=== PATIENT | female | born 1985 | race Caucasian/White ===

== ENCOUNTER 2016-06-28 09:44 | Inpatient (IN) | payer MEDICAID, OTHER, SELFPAY ==
[~2016-06-28] VITALS: Ht 152.4 cm; Wt 60.2 kg
[~2016-06-28 09:44] MED LIST: ATIV0.5T; CELE20TA OR; CELE40TA OR; CIPR25SS OR; EFFE75CA75; HYDR25TA8 OR; KLON0.5T OR; MACR50CA; METO10TA2 OR; PRIL20CA OR; SUBUTEX; THERGRAN PO; THORAZINE PO; VALI5TAB OR; prenatal vitamin PO; suboxone PO
[2016-06-28 11:27] LABS: METHADONE URINE NEGATIVE (NEGATIVE)
[2016-06-28 12:06] LABS: CONTROL LINE HCG INT CTR LINE PRESENT
[2016-06-28 12:20] LABS: ALBUMIN 3.8 GM/DL (3.2-5.2); ALBUMIN/GLOBULIN RATIO 1.23 (1.00-1.93); ALKALINE PHOSPHATASE 54 U/L (45-117); ALT/SGPT 23 U/L (12-78); ANION GAP 6 MEQ/L (8-16); AST/SGOT 18 U/L (15-37); BILIRUBIN,DIRECT < 0.1 MG/DL (0.0-0.2); BILIRUBIN,TOTAL 0.2 MG/DL (0.2-1.0); BLOOD UREA NITROGEN 12 MG/DL (7-18); CALCIUM LEVEL 8.4 MG/DL (8.5-10.1); CARBON DIOXIDE LEVEL 28 MEQ/L (21-32); CHLORIDE LEVEL 107 MEQ/L (98-107); CREATININE FOR GFR 0.77 MG/DL (0.55-1.02); GLOMERULAR FILTRATION RATE > 60.0 (>60); GLUCOSE, FASTING 93 MG/DL (70-105); POTASSIUM SERUM 4.3 MEQ/L (3.5-5.1); SODIUM LEVEL 141 MEQ/L (136-145); TOTAL PROTEIN 6.9 GM/DL (6.4-8.2)
[2016-06-28 13:02] LABS: MEAN CORPUSCULAR HEMOGLOBIN 31.6 pg (27.0-33.0); MEAN CORPUSCULAR HGB CONC 33.2 g/dl (32.0-36.5); MEAN CORPUSCULAR VOLUME 95.2 fl (80.0-96.0); RED CELL DISTRIBUTION WIDTH 12.5 % (11.5-14.5); WHITE BLOOD COUNT 7.7 K/mm3 (4.0-10.0)
[2016-06-28] MEDS ORDERED: MOM 30ML SUSPENSION UDC PO PRN (13:15)
[2016-06-28] MEDS ORDERED: MAALOX 30 ML SUSP *UDC PO PRN (13:15)
[2016-06-28 14:08] VITALS: BP 126/81
[2016-06-28] MEDS ORDERED: KEPP1000 PO (16:15)
[2016-06-28] MEDS ORDERED: NEUR800T PO (16:15)
[2016-06-28] MEDS ORDERED: BUPR200T PO (16:15)
[2016-06-28] MEDS: GABAPENTIN 400 MG CAP PO SCH ×2 (16:42→20:33)
[2016-06-28] MEDS: NICOTINE 21MG/24HR 1 EA TRANSDERMAL TD SCH (16:42)
[2016-06-28] MEDS: cloNIDine 0.1 MG TAB PO SCH ×2 (16:43→20:36)
[2016-06-28] MEDS: hydrOXYzine 50 MG TAB PO PRN (17:56)
[2016-06-28 18:00] VITALS: BP 111/65
[2016-06-28] MEDS: traZODone 50 MG TAB PO PRN (20:32)
[2016-06-28] MEDS: buPROPion (WELLBUTRIN SR) 100 MG SR TAB PO SCH (20:32)
[2016-06-28] MEDS: levETIRAcetam 250MG TABLET (KEPPRA) PO SCH (20:32)
[2016-06-29 06:42] VITALS: BP 111/56
[2016-06-29] MEDS: levETIRAcetam 250MG TABLET (KEPPRA) PO SCH ×2 (08:54→20:25)
[2016-06-29] MEDS: buPROPion (WELLBUTRIN SR) 100 MG SR TAB PO SCH ×2 (08:56→20:25)
[2016-06-29] MEDS: GABAPENTIN 400 MG CAP PO SCH ×3 (08:56→20:26)
[2016-06-29] MEDS: cloNIDine 0.1 MG TAB PO SCH (08:56)
[2016-06-29] MEDS: NICOTINE 21MG/24HR 1 EA TRANSDERMAL TD SCH (08:56)
[2016-06-29] MEDS ORDERED: PRAZOSIN 1 MG CAP PO SCH (09:00)
[2016-06-29] MEDS: QUEtiapine FUMARATE 50 MG TAB PO SCH (11:56)
[2016-06-29] MEDS: VENLAFAXINE **XR** 75MG CAPSULE PO SCH (11:56)
[2016-06-29] MEDS: ATOMOXETINE HCL 40 MG CAP (STRATTERA) PO SCH (11:56)
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
[2016-06-29 18:00] VITALS: BP 113/53
[2016-06-29] MEDS: QUEtiapine FUMARATE 100 MG TAB PO SCH (20:25)
[2016-06-29] MEDS: PRAZOSIN 1 MG CAP PO SCH (20:26)
[2016-06-29] MEDS: hydrOXYzine 50 MG TAB PO PRN (20:26)
[2016-06-29] MEDS: ACETAMINOPHEN TAB 650MG DOSE (2X325MG) PO PRN (20:30)
[2016-06-30 06:31] VITALS: BP 93/54
[2016-06-30] MEDS: buPROPion (WELLBUTRIN SR) 100 MG SR TAB PO SCH ×2 (08:06→20:21)
[2016-06-30] MEDS: GABAPENTIN 400 MG CAP PO SCH ×3 (08:06→20:21)
[2016-06-30] MEDS: QUEtiapine FUMARATE 50 MG TAB PO SCH (08:06)
[2016-06-30] MEDS: levETIRAcetam 250MG TABLET (KEPPRA) PO SCH ×2 (08:06→20:21)
[2016-06-30] MEDS: VENLAFAXINE **XR** 75MG CAPSULE PO SCH (08:06)
[2016-06-30] MEDS: ATOMOXETINE HCL 40 MG CAP (STRATTERA) PO SCH (08:06)
[2016-06-30] MEDS: hydrOXYzine 50 MG TAB PO PRN ×2 (08:07→20:24)
[2016-06-30] MEDS: NICOTINE 21MG/24HR 1 EA TRANSDERMAL TD SCH (08:07)
--- NOTE | 2016-06-30 09:45 | IPN ---
DATE: 06/30/2016 I met with Ms. Phipps and staff this morning. Mood was good. Eye contact was good. She is comfortable with the present medications she is on which she had reported to me and were dosed as per her reports. She is known well by discharge planning staff who have worked with her for many years and her main concern is to be able to get outpatient treatment. MENTAL STATUS: Speech is normal. No disturbance of thought process. No loose associations. No psychotic thoughts. Judgment and insight poor. Fully oriented. Recent and remote memory intact. Attention and concentration intact. No disturbance of language. Full fund of knowledge. Mood is good. Affect is bright. The patient claims that her use of drugs is only based on when she does not get her psychiatric medications. Her problems are significantly more complicated than that as per her history. I have added oral PRN medications for agitation based on patient's history DIAGNOSES: Depressive illness. Substance dependence. Borderline and antisocial personality traits. MTDD
[2016-06-30] MEDS ORDERED: HALOPERIDOL 10 MG TAB PO PRN (10:15)
[2016-06-30] MEDS: diphenhydrAMINE 50 MG CAP PO PRN (11:55)
[2016-06-30] MEDS: LORazepam 2 MG TAB PO PRN (16:14)
--- NOTE | 2016-06-30 16:29 | HPE ---
DATE OF ADMISSION: 06/29/2016 HISTORY OF PRESENT ILLNESS: Please refer to psychiatric history and evaluation for further details on this admission. This examination and history is intended for medical issues, which may need treatment, followup, or consult on this 31-year-old female. SOCIAL HISTORY: She lives with mother. She smokes one pack of cigarettes per day. She has a history of drug abuse. She has taken some opiate pills and most recently shooting up intravenous (IV) methamphetamine, the last time being 2 weeks ago. ALLERGIES: IBUPROFEN, HALDOL, PENICILLIN, ADDERALL, OLANZAPINE, GEODON. PAST MEDICAL HISTORY: 1. Hepatitis C. 2. Methicillin-resistant Staphylococcus aureus (MRSA). SURGICAL HISTORY: Hernia repair. LABORATORY STUDIES: CBC was normal. Electrolytes were normal. Calcium 8.0. TSH was 0.162. Urine was positive for opiates. HOME MEDICATIONS: - bupropion 200 mg by mouth twice a day - gabapentin 800 mg by mouth twice a day - Keppra 1000 mg by mouth twice a day A 10-systems review done and was unremarkable. Patient had no specific complaints. Did have some soreness but no redness on her left hand between the 1st and 2nd knuckle where she had at one time injected. There is no redness, drainage, or swelling. Otherwise, review of systems unremarkable. OBJECTIVE: A 31-year-old cooperative female in no acute distress. Height 60 inches, weight 60.2 kg, body mass index (BMI) 25.9. Blood pressure is 111/65, pulse 80, respirations 18, temperature 98.5. Patient is alert and oriented times three. Pupils equal and reactive to light. Extraocular movements (EOMs) intact. Cornea and sclerae are clear. Conjunctivae are normal. No facial asymmetry. Pharynx, tongue, and gums pink and moist. Tongue is midline. Neck is supple without lymphadenopathy. No thyromegaly. No goiter. Carotids 2+ without bruits. Chest clear to auscultation without wheeze or retraction. Heart is regular. Abdomen benign. Bowel sounds positive. Genitourinary/rectal not done. Extremities: No cyanosis, clubbing, or edema . Peripheral pulses equal and palpable bilaterally. Skin is warm and dry. IMPRESSION AND PLAN: Psychiatric plan per psychiatry. History of hepatitis C, stable. History of methicillin-resistant Staphylococcus aureus (MRSA). Continue current plan of care.
[2016-06-30 18:00] VITALS: BP 102/60
[2016-06-30] MEDS: PRAZOSIN 1 MG CAP PO SCH (20:20)
[2016-06-30] MEDS: QUEtiapine FUMARATE 100 MG TAB PO SCH (20:21)
[2016-07-01] MEDS: LORazepam 2 MG TAB PO PRN (04:41)
[2016-07-01] MEDS: QUEtiapine FUMARATE 50 MG TAB PO SCH (08:20)
[2016-07-01] MEDS: ATOMOXETINE HCL 40 MG CAP (STRATTERA) PO SCH (08:20)
[2016-07-01] MEDS: VENLAFAXINE **XR** 75MG CAPSULE PO SCH (08:20)
[2016-07-01] MEDS: hydrOXYzine 50 MG TAB PO PRN (08:20)
[2016-07-01] MEDS: levETIRAcetam 250MG TABLET (KEPPRA) PO SCH ×2 (08:21→21:12)
[2016-07-01] MEDS: GABAPENTIN 400 MG CAP PO SCH ×3 (08:21→21:14)
[2016-07-01] MEDS: buPROPion (WELLBUTRIN SR) 100 MG SR TAB PO SCH ×2 (08:21→21:12)
[2016-07-01] MEDS: NICOTINE 21MG/24HR 1 EA TRANSDERMAL TD SCH (08:22)
[2016-07-01] MEDS ORDERED: LORazepam 1 MG TAB PO PRN (11:30)
--- NOTE | 2016-07-01 15:09 | IPN ---
DATE: 07/01/2016 CHIEF COMPLAINT: Says is doing okay. SUBJECTIVE: Seen for followup. I am accompanied by staff. The patient says she is doing better but is upset that her logistics officer came in to visit her yesterday. Says she did not want her here and does not want her involved in her discharge planning. Says she also disagreed with plans that the logistics officer had discussed, but she did not go into details. Says sleeps okay and has a fair appetite. She denies any suicidal thoughts or intents. Does say has a headache and has had one for the last 8 months or so and that she is due to see a neurologist. Says had run out of medicines for about 2 weeks just prior to coming to the hospital. Suggests parole ought to have arranged that. MENTAL STATUS EXAMINATION: She is neat, cooperative, but possibly a bit guarded. No agitation. Displays mild irritability, particularly when questioned on details. Affect restricted but reactive. Appears a bit groggy. Denies feeling it. Denies any suicidal thoughts or intents. No homicidal ideas or intents. Currently no evidence of psychosis. She is alert, oriented to time, though it took her a little while indicating what day it was and the date. She is able to spell the word "house" forward and the backward. Judgment is questionable. Insight is fair. ASSESSMENT: 1. Posttraumatic stress disorder, by history. 2. Bipolar disorder, by history. 3. Polysubstance dependency. 4. Borderline personality disorder, by history. PLAN: I would suggest continuing current care, but given her history of substance abuse and her possibly being somewhat sedated at present, I would suggest decreasing the lorazepam. It is decreased to 1 mg every 6 hours as needed for anxiety with a maximum daily dose of 2 mg, and this should be reviewed in about 2 or 3 days. It is preferable the patient not use benzodiazepines overall, however. May consider discontinuing it eventually in the near future. Encouraged participation in [employer] activities. Work with the patient and the probation office, particularly regarding her concerns about the chief information officer, the process, and discharge planning. Will monitor the headache. Refer to neurology upon discharge. This may need intervention while she is in the inpatient unit. VITAL SIGNS: Blood pressure 124/66, pulse 92, temperature 98.5.
[2016-07-01] MEDS: diphenhydrAMINE 50 MG CAP PO PRN (15:23)
[2016-07-01] MEDS: chlorproMAZINE 25 MG TAB (Q0161) PO PRN (15:23)
[2016-07-01] MEDS: QUEtiapine FUMARATE 100 MG TAB PO SCH (21:12)
[2016-07-01] MEDS: PRAZOSIN 1 MG CAP PO SCH (21:12)
[2016-07-02 06:12] VITALS: BP 121/62
[2016-07-02] MEDS: QUEtiapine FUMARATE 50 MG TAB PO SCH (09:45)
[2016-07-02] MEDS: VENLAFAXINE **XR** 75MG CAPSULE PO SCH (09:45)
[2016-07-02] MEDS: ATOMOXETINE HCL 40 MG CAP (STRATTERA) PO SCH (09:45)
[2016-07-02] MEDS: NICOTINE 21MG/24HR 1 EA TRANSDERMAL TD SCH (09:45)
[2016-07-02] MEDS: GABAPENTIN 400 MG CAP PO SCH ×3 (09:46→20:36)
[2016-07-02] MEDS: buPROPion (WELLBUTRIN SR) 100 MG SR TAB PO SCH ×2 (09:46→20:37)
[2016-07-02] MEDS: levETIRAcetam 250MG TABLET (KEPPRA) PO SCH ×2 (09:46→20:36)
[2016-07-02] MEDS: LORazepam 1 MG TAB PO PRN ×2 (09:51→17:41)
[2016-07-02] MEDS: ACETAMINOPHEN TAB 650MG DOSE (2X325MG) PO PRN ×2 (13:57→20:40)
[2016-07-02] MEDS: diphenhydrAMINE 50 MG CAP PO PRN (13:59)
[2016-07-02] MEDS: chlorproMAZINE 25 MG TAB (Q0161) PO PRN (13:59)
[2016-07-02 15:08] VITALS: BP 117/64
[2016-07-02] MEDS: traZODone 50 MG TAB PO PRN (20:36)
[2016-07-02] MEDS: QUEtiapine FUMARATE 100 MG TAB PO SCH (20:36)
[2016-07-02] MEDS: PRAZOSIN 1 MG CAP PO SCH (20:37)
--- NOTE | 2016-07-02 21:05 | IPN ---
DATE: 07/02/2016 CHIEF COMPLAINT: Says does not feel well. SUBJECTIVE: Is seen for followup in the presence of staff. She indicated that she was not feeling well and that she had hot flashes. She looked groggy. When that was pointed out, she became quite upset, indicated that she did not feel it and that she was also upset that changes had been made to her medication regimen. It should be noted that the patient had been somewhat sedated last evening. We decided to hold off on sedatives, as there was some concern that she may have brought in drugs. Urine toxicology was negative. When informed that the urine toxicology did not show benzodiazepine either, she indicated that it should have shown opiates initially, which it did, the specimen of urine when she had been first admitted. MENTAL STATUS EXAMINATION: Fairly neat. Superficially coopeative. Initially appeared somewhat sedated and tired, and then became quite angry, upset, much more alert, was verbally abusive, with an irritable affect. There was no evidence of any thoughts of harming herself or anyone else. She displayed no evidence of any psychosis. Initially appeared drowsy and when asked questions related to cognition, was able to answer them, was aware of her surroundings. Was not formally able to be tested for cognition but the questioning had resulted in her becoming more angry yet. Judgment is poor. Insight is quite questionable. ASSESSMENT: 1. Posttraumatic stress disorder (PTSD) by history. 2. Bipolar disorder by history. 3. Polysubstance use disorder. 4. Borderline personality disorder by history. The patient has displayed periods of sedation. Urine toxicology done when there was some suspicion that she may have taken substances, possibly brought in, was essentially negative, including for benzodiazepine, which is surprising. I decided to hold off on sedatives. We will look at resuming the lorazepam for the next couple of days, in fact that has been done at 1 mg no more than twice a day. When asked of her preference to discontinue either the hydroxyzine or the Benadryl, when she has been prescribed both for anxiety, she became more upset, indicated hydroxyzine had "never worked." Was angry that I was making changes, which had been initiated by the previous psychiatrist. Attempts to explain the rationale for doing so was made but she was not very receptive to it. A code 25 needed to be called, as she was in the hallway, not directable, angry, upset, verbally aggressive, and then calmed down and the code was canceled. PLAN: We will look at cutting down the hydroxyzine and discontinuing it and tapering the Benadryl as well. I do not see the point of using those two medications for any length of time to help with anxiety. Meanwhile, we will continue the rest of her medication regimen, including Seroquel at 150 mg daily, Strattera 40 mg daily, prazosin 2 mg at night, Wellbutrin 400 mg daily. Further changes will be made depending on the clinical picture. Blood pressure 121/62, pulse 113, temperature 97.9. We will look at repeating the vitals. It should be noted the interview was cut short, as she was verbally abusive when recommendations are discussed. It should be noted that a repeat vital signs indicated blood pressure 117/64, pulse 104, temperature 98.4.
[2016-07-03] MEDS: LORazepam 1 MG TAB PO PRN (06:11)
[2016-07-03 07:00] VITALS: BP 118/73
[2016-07-03] MEDS: ATOMOXETINE HCL 40 MG CAP (STRATTERA) PO SCH (08:21)
[2016-07-03] MEDS: VENLAFAXINE **XR** 75MG CAPSULE PO SCH (08:21)
[2016-07-03] MEDS: GABAPENTIN 400 MG CAP PO SCH ×3 (08:21→20:40)
[2016-07-03] MEDS: levETIRAcetam 250MG TABLET (KEPPRA) PO SCH ×2 (08:21→20:40)
[2016-07-03] MEDS: ACETAMINOPHEN TAB 650MG DOSE (2X325MG) PO PRN ×2 (08:22→21:41)
[2016-07-03] MEDS: QUEtiapine FUMARATE 50 MG TAB PO SCH (08:22)
[2016-07-03] MEDS: buPROPion (WELLBUTRIN SR) 100 MG SR TAB PO SCH ×2 (08:22→20:40)
[2016-07-03] MEDS: NICOTINE 21MG/24HR 1 EA TRANSDERMAL TD SCH (08:22)
[2016-07-03] MEDS ORDERED: QUEtiapine FUMARATE 12.5 MG HALF-TAB PO PRN (11:30)
--- NOTE | 2016-07-03 15:17 | IPN ---
DATE: 07/03/2016 A 31-year-old female with history of depression admitted with suicidal ideations, significant anxiety, posttraumatic stress disorder (PTSD), and substance abuse. The patient was very anxious. SUBJECTIVE: "I need to be on benzodiazepines." OBJECTIVE: The patient is trying to convince me that she needs to continue taking Ativan. I talked to the patient about the pros and the cons of the medications, including benzodiazepines and the fact that with her clinical situation and past history of chemical dependency, benzodiazepines are contraindicated. The patient became angry and continued trying to convince me that she is in need of this medication since she has panic attacks very frequent. MENTAL STATUS EXAMINATION: The patient is dressed in [facility]. She has fair eye contact. Speech is normal in rate, volume, articulation, is coherent and is spontaneous. The patient is reported as anxious with panic attacks. Affect is congruent with mood. No evidence of delusions or hallucinations. Memory is fair. The patient is fully oriented. Associations are intact. Thinking is logical. Thought content is appropriate. The patient reported high anxiety and mood fluctuations in the context of trying to convince me that she needs to take benzodiazepines. Insight and judgment is limited. ASSESSMENT: 1. Depression. 2. Generalized anxiety disorder. 3. Posttraumatic stress disorder (PTSD) by history. PLAN: 1. Discontinue Ativan. 2. Continue Seroquel 100 mg by mouth at bedtime, 50 mg by mouth every morning, and add Seroquel 12.5 mg by mouth three times a day as needed for anxiety. 3. Continue Effexor 75 mg by mouth every morning. 4. Continue Wellbutrin 200 mg by mouth twice a day. 5. Continue trazodone 50 mg by mouth at bedtime as needed for insomnia. 6. Discontinue Benadryl and start Atarax 50 mg by mouth every six hours as needed for anxiety. 7. Continue Thorazine 25 mg by mouth at bedtime as needed for anxiety. 8. Continue Minipress 2 mg by mouth at bedtime.
[2016-07-03] MEDS: hydrOXYzine 50 MG TAB PO PRN (16:22)
[2016-07-03 18:00] VITALS: BP 112/67
[2016-07-03 20:40] VITALS: BP 137/64
[2016-07-03] MEDS: PRAZOSIN 1 MG CAP PO SCH (20:40)
[2016-07-03] MEDS: traZODone 50 MG TAB PO PRN (21:38)
[2016-07-03] MEDS: QUEtiapine FUMARATE 100 MG TAB PO SCH (21:38)
[2016-07-04] MEDS: hydrOXYzine 50 MG TAB PO PRN (04:42)
[2016-07-04 06:20] VITALS: BP 90/54
[2016-07-04] MEDS: VENLAFAXINE **XR** 75MG CAPSULE PO SCH (09:12)
[2016-07-04] MEDS: ATOMOXETINE HCL 40 MG CAP (STRATTERA) PO SCH (09:12)
[2016-07-04] MEDS: GABAPENTIN 400 MG CAP PO SCH (09:12)
[2016-07-04] MEDS: buPROPion (WELLBUTRIN SR) 100 MG SR TAB PO SCH (09:12)
[2016-07-04] MEDS: levETIRAcetam 250MG TABLET (KEPPRA) PO SCH (09:12)
[2016-07-04] MEDS: QUEtiapine FUMARATE 50 MG TAB PO SCH (09:12)
[2016-07-04] MEDS: NICOTINE 21MG/24HR 1 EA TRANSDERMAL TD SCH (09:14)
[2016-07-04] MEDS ORDERED: ATOM40CA PO (11:54)
[2016-07-04] MEDS ORDERED: QUET5TAB PO (11:54)
[2016-07-04] MEDS ORDERED: VENL75CA PO (11:54)
[2016-07-04] MEDS ORDERED: QUET1TAB8 PO (11:54)
[2016-07-04] MEDS ORDERED: MINI1CAP PO (11:54)
[2016-07-04] MEDS ORDERED: HYDRO50TAB PO (11:54)
--- NOTE | 2016-07-05 11:40 | MHDS ---
DATE OF ADMISSION: 06/28/2016 DATE OF DISCHARGE: 07/04/2016 HISTORY OF PRESENT ILLNESS: The following information is according to the initial evaluation of Dr. Greenberg, his progress note and my own progress note. On 06/28/2016, Dr. Greenberg wrote: A 31-year-old who states that she came to the emergency room because she was stressed out. She expressed suicidal ideations. She states that [facility] and had no therapies, no Medicaid, and no followup medications after she ran out of the ones in [facility]ent[facility]. She states, "my probation and parole officer has me running around." She states, "I always come home and I have trouble with Medicaid and medications being refilled." The following medications are reported by the patient, I have no other record at this time, the patient states that she takes: Minipress, Strattera, Wellbutrin, Seroquel, Effexor, gabapentin, and Keppra. The patient states that her Keppra needs to be switched after she sees a neurologist. The patient states that she has a bad liver. According to the patient, the patient has been diagnosed with seizure disorder, hepatitis C, questionable methicillin-resistant Staphylococcus aureus (MRSA), chronic pain and hip pain following dislocation. 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 She states that on Sunday she used opiates because she could not get her psychiatric drugs refilled. LABORATORY DATA: At admission, CBC was unremarkable, CMP was within normal limits, TSH was 0.62, test was negative. Urine drug screen was positive for opiates, rest negative. Blood alcohol level was negative. HOSPITAL COURSE: The patient was admitted under Dr. Greenberg's care. He started the patient on Seroquel 100 mg by mouth at bedtime and 50 mg by mouth every morning, prazosin 2 mg by mouth at bedtime, Thorazine 25 mg by mouth every morning, bupropion 200 mg by mouth twice a day, Neurontin 800 mg by mouth three times a day, trazodone 50 mg as needed for insomnia. With this medication, the patient was stabilized. I started taking care of the patient on 07/03/2016. At that point, she is significantly improved from admission. The patient is able to contract for safety. However, she wanted me to prescribe benzodiazepines. She said that she was on Klonopin for a long time. I discussed this fact with the patient and told her that benzodiazepines at this point are contraindicated and that in addition she has a very long history of chemical dependence. She became angry and frustrated and continued to request to be placed on these medications. On 07/04/2016, the patient is better, calmer. The patient would like to be able to go home. The patient is denying suicidal or homicidal ideation. The patient does not have psychotic symptoms. No auditory or visual hallucinations or delusions. A family meeting was held and the patient did well. Therefore, at this point, the patient does not meet criteria for acute inpatient hospitalization and can be managed in outpatient setting so she was discharged on 07/04/2016 in stable condition. MENTAL STATUS EXAMINATION AT DISCHARGE: The patient is dressed [facility]. The patient is calm and cooperative. Her speech is clear, coherent with normal rate and is spontaneous. The patient has good eye contact. Mood is slightly anxious and depressed but significantly improved from admission. Affect is appropriate and congruent with mood. The patient is oriented to time, place, person and situation, maintains attention and concentration correctly. Instant recall, recent and remote memory are intact. Thought processes are coherent, logical and goal-directed. The patient does not have auditory or visual hallucinations. The patient does not have paranoid, persecutory, somatic, grandiose, or taoist delusions. The patient denies suicidal or homicidal ideation. Insight and judgment are fair. DISCHARGE DIAGNOSES: AXIS I: Generalized anxiety disorder, posttraumatic stress disorder (PTSD), polysubstance dependency, adjustment disorder with depressed and anxious mood. AXIS II: Deferred. AXIS III: None acute. DISCHARGE INSTRUCTIONS: The patient is to continue taking her medications as prescribed and followup appointments. She is advised to maintain absolute sobriety from drugs and alcohol. The patient has scheduled appointments for psychotropic medication management, individual psychotherapy, and primary care physician. DISCHARGE MEDICATIONS: - Seroquel 100 mg by mouth at bedtime and 50 mg by mouth every morning - prazosin 2 mg by mouth at bedtime - Effexor XR 75 mg by mouth every morning - Strattera 40 mg by mouth every morning - bupropion 200 mg by mouth twice a day - Neurontin 800 mg by mouth three times a day
== END 2016-07-04 12:55 | disposition home or self-care (01) | DRG 756 ==
LOC: M ED 11:12 → M ED INP 13:10 → M PSY 14:10
PROVIDERS: ADMIT Psychiatry & Neurology Child & Adolescent Psychiatry; ATTEND Psychiatry & Neurology Psychiatry
DX: F41.1 Generalized anxiety disorder (principal); F11.20 Opioid dependence, uncomplicated; F43.10 Post-traumatic stress disorder, unspecified; F43.23 Adjustment disorder with mixed anxiety and depressed mood; F60.2 Antisocial personality disorder; F17.210 Nicotine dependence, cigarettes, uncomplicated; Z88.0 Allergy status to penicillin; Z88.6 Allergy status to analgesic agent; Z88.8 Allergy status to other drugs, medicaments and biological substances; Z86.14 Personal history of Methicillin resistant Staphylococcus aureus infection; Z86.19 Personal history of other infectious and parasitic diseases; Z79.899 Other long term (current) drug therapy; Z65.2 Problems related to release from prison

== ENCOUNTER 2016-08-24 15:58 | Emergency (ER) | payer OTHER ==
[~2016-08-24] VITALS: Ht 152.4 cm; Wt 56.4 kg
[~2016-08-24 15:58] MED LIST changes: +ATOM40CA PO; +BUPR200T PO; +HYDRO50TAB PO; +KEPP10002 PO; +MINI1CAP PO; +NEUR800T PO; +QUET1TAB8 PO; +QUET5TAB PO; +VENL75CA2 PO
[2016-08-24 17:12] LABS: BASO # 0.1 K/mm3 (0.0-0.2); BASO % 1.6 % (0.0-1.0); EOS # 0.2 K/mm3 (0.0-0.50); EOS % 3.1 % (0.0-3.0); LARGE UNSTAINED CELL # 0.2 K/mm3 (0.0-0.4); LARGE UNSTAINED CELL % 2.2 % (0.0-4.0); LYMPH # 1.7 K/mm3 (1.5-6.5); LYMPH % 22.2 % (24.0-44.0); MEAN CORPUSCULAR HEMOGLOBIN 31.6 pg (27.0-33.0); MEAN CORPUSCULAR HGB CONC 33.9 g/dl (32.0-36.5); MEAN CORPUSCULAR VOLUME 93.2 fl (80.0-96.0); MONO # 0.4 K/mm3 (0.0-0.8); MONO % 5.6 % (0.0-5.0); NEUTROPHILS # 4.9 K/mm3 (1.8-7.7); NEUTROPHILS % 65.3 % (36.0-66.0); PLATELET COUNT, AUTOMATED 335 k/mm3 (150-450); RED CELL DISTRIBUTION WIDTH 12.2 % (11.5-14.5); WHITE BLOOD COUNT 7.5 K/mm3 (4.0-10.0)
[2016-08-24 17:30] LABS: ALBUMIN/GLOBULIN RATIO 1.03 (1.00-1.93); ALKALINE PHOSPHATASE 56 U/L (45-117); ANION GAP 5 MEQ/L (8-16); AST/SGOT 19 U/L (15-37); BILIRUBIN,TOTAL 0.4 MG/DL (0.2-1.0); BLOOD UREA NITROGEN 11 MG/DL (7-18); CALCIUM LEVEL 9.5 MG/DL (8.5-10.1); CARBON DIOXIDE LEVEL 32 MEQ/L (21-32); CHLORIDE LEVEL 104 MEQ/L (98-107); CREATININE FOR GFR 0.95 MG/DL (0.55-1.02); GLOMERULAR FILTRATION RATE > 60.0 (>60); GLUCOSE, FASTING 93 MG/DL (70-105); POTASSIUM SERUM 3.8 MEQ/L (3.5-5.1); SODIUM LEVEL 141 MEQ/L (136-145); TOTAL PROTEIN 7.9 GM/DL (6.4-8.2)
[2016-08-24 17:32] LABS: ALT/SGPT 21 U/L (12-78); HCG, SERUM QUANTITATIVE < 1.0 MIU/ML
--- NOTE | 2016-08-24 18:13 | REP ---
Clinical: Left-sided chest pain . Comparison: 01/04/2010 . Technique: PA and lateral. Findings: The mediastinum and cardiac silhouette are normal. The lung johnson are clear and without acute consolidation, effusion, or pneumothorax. The skeletal structures are intact and normal. Impression: 1. No acute cardiopulmonary process. Signed by Broderick Mondragon MD 08/24/2016 06:05 P
[2016-08-24 18:57] LABS: METHADONE URINE NEGATIVE (NEGATIVE)
[2016-08-24 19:23] VITALS: BP 120/78
--- NOTE | 2016-08-25 07:33 | ECGEPIP ---
Stationary ECG Study [facility] - ED Test Date: 2016-08-24 Pat Name: MELANY LEE Department: Room: - Gender: F Case Assistant: ct : 1985 Requested By: Seth Limon Order Number: [id number] Reading MD: Shirley Spears Measurements Intervals [place] Rate: 78 P: 59 TX: 125 QRS: 62 QRSD: 86 T: 49 QT: 372 QTc: 424 Interpretive Statements SINUS RHYTHM SIMILAR 03/09/14 Electronically Signed On 08-25-2016 7:33:22 EDT by Shirley Spears
== END 2016-08-24 19:34 | disposition home or self-care (01) ==
LOC: M ED 15:58
DX: R07.89 Other chest pain (principal); F41.9 Anxiety disorder, unspecified; B19.20 Unspecified viral hepatitis C without hepatic coma; F19.10 Other psychoactive substance abuse, uncomplicated; R56.9 Unspecified convulsions; F17.200 Nicotine dependence, unspecified, uncomplicated; Z79.899 Other long term (current) drug therapy; Z88.8 Allergy status to other drugs, medicaments and biological substances; Z88.0 Allergy status to penicillin

== ENCOUNTER → 2016-10-02 | Outpatient (REF) | payer OTHER | LOC: M LAB REF 13:22 | PROVIDERS: ATTEND Surgery | DX: N34.1 Nonspecific urethritis (principal); A56.8 Sexually transmitted chlamydial infection of other sites ==

== ENCOUNTER → 2016-11-14 | Outpatient (REF) | payer OTHER | LOC: M LAB REF 17:50 | PROVIDERS: ATTEND Physician Assistant Medical | DX: E03.9 Hypothyroidism, unspecified (principal) ==

== ENCOUNTER 2018-05-11 14:48 | Emergency (ER) | payer OTHER ==
[~2018-05-11] VITALS: Ht 152.4 cm; Wt 64.1 kg
[2018-05-11] MEDS ORDERED: GABA-845 PO (14:55)
[2018-05-11] MEDS ORDERED: TRIL600T PO (14:55)
[2018-05-11] MEDS ORDERED: CHLOR10TAB (14:56)
[2018-05-11] MEDS ORDERED: AMIT75TA (14:56)
[2018-05-11] MEDS ORDERED: DEPO150I IM (14:56)
[2018-05-11 18:06] VITALS: BP 120/83
--- NOTE | 2018-05-11 18:52 | REP ---
KUB one-view History: Foreign body A small amount of air is present in the intestine. There are no air-fluid levels or dilated loops of intestine. There is no pneumoperitoneum. There is no radiopaque foreign body. Impression: Nonspecific bowel gas pattern. Electronically Signed by Gasper Vickers MD 05/11/2018 06:44 P
--- NOTE | 2018-05-11 18:55 | REP ---
Chest one-view HISTORY: Foreign body Comparison: 08/04/2016 The lungs are clear. The heart is normal in size. The pulmonary vasculature is normal in appearance. There is no radiopaque foreign body. Impression: No acute disease. Electronically Signed by Gasper Vickers MD 05/11/2018 06:47 P
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
== END 2018-05-11 18:19 | disposition home or self-care (01) ==
LOC: M ED 14:48
DX: R09.89 Other specified symptoms and signs involving the circulatory and respiratory systems (principal); B19.20 Unspecified viral hepatitis C without hepatic coma; F17.200 Nicotine dependence, unspecified, uncomplicated; F14.10 Cocaine abuse, uncomplicated; Z88.8 Allergy status to other drugs, medicaments and biological substances; Z88.0 Allergy status to penicillin; Z88.2 Allergy status to sulfonamides; Z79.899 Other long term (current) drug therapy

== ENCOUNTER 2018-07-02 02:10 | Emergency (ER) | payer OTHER ==
[~2018-07-02] VITALS: Ht 152.4 cm; Wt 74.5 kg
[~2018-07-02 02:10] MED LIST changes: +AMIT75TA; +CHLOR10TAB; +DEPO150I IM; +GABA-845 PO; +TRIL600T PO
[2018-07-02] MEDS ORDERED: traMADol 50 MG TAB PO ONE (05:00)
[2018-07-02] MEDS ORDERED: NORCO, ANEXSIA 5/325MG TABLET (HYDROcodone/ACETAMINOPHEN) PO ONE (05:15)
[2018-07-02 05:16] VITALS: BP 133/66
[2018-07-02] MEDS ORDERED: ACETAMINOPHEN 500 MG TAB PO ONE (05:30)
[2018-07-02] MEDS ORDERED: PRED10TA2 PO (20:05)
[2018-07-02] MEDS ORDERED: BENA25CA4 PO (20:05)
== END 2018-07-02 05:31 | disposition home or self-care (01) ==
LOC: M ED 02:10
DX: T49.4X5A Adverse effect of keratolytics, keratoplastics, and other hair treatment drugs and preparations, initial encounter (principal); Y92.9 Unspecified place or not applicable; Y93.89 Activity, other specified; F41.9 Anxiety disorder, unspecified; G40.909 Epilepsy, unspecified, not intractable, without status epilepticus; B19.20 Unspecified viral hepatitis C without hepatic coma; F19.10 Other psychoactive substance abuse, uncomplicated; Z79.899 Other long term (current) drug therapy; Z88.0 Allergy status to penicillin; Z88.6 Allergy status to analgesic agent; Z88.8 Allergy status to other drugs, medicaments and biological substances

== ENCOUNTER 2018-07-02 18:20 | Emergency (ER) | payer OTHER ==
[~2018-07-02] VITALS: Ht 152.4 cm; Wt 74.2 kg
[2018-07-02] MEDS ORDERED: BENA25CA4 PO (20:05)
[2018-07-02] MEDS ORDERED: PRED10TA2 PO (20:05)
[2018-07-02] MEDS ORDERED: predniSONE 20 MG TAB PO ONE (20:15)
[2018-07-02] MEDS ORDERED: diphenhydrAMINE 25 MG CAP PO ONE (20:15)
[2018-07-02 20:22] VITALS: BP 134/72
== END 2018-07-02 20:46 | disposition home or self-care (01) ==
LOC: M ED 18:20
DX: F41.9 Anxiety disorder, unspecified (principal); F15.10 Other stimulant abuse, uncomplicated; B19.20 Unspecified viral hepatitis C without hepatic coma; Z79.899 Other long term (current) drug therapy; Z88.0 Allergy status to penicillin; Z88.6 Allergy status to analgesic agent; Z88.1 Allergy status to other antibiotic agents; Z88.8 Allergy status to other drugs, medicaments and biological substances

== ENCOUNTER 2018-07-12 14:07 | Emergency (ER) | payer OTHER ==
[~2018-07-12] VITALS: Ht 152.4 cm; Wt 79.5 kg
[~2018-07-12 14:07] MED LIST changes: +BENA25CA4 PO; +PRED10TA2 PO
[2018-07-12 14:08] VITALS: BP 117/86
[2018-07-12] MEDS ORDERED: SUBO12MI SL (15:36)
[2018-07-12] MEDS ORDERED: BANO25CA PO (15:36)
[2018-07-12] MEDS ORDERED: ATOM40CA9 PO (15:36)
== END 2018-07-12 16:01 | disposition left against medical advice (07) ==
LOC: M ED 14:07
DX: R07.9 Chest pain, unspecified (principal); B19.20 Unspecified viral hepatitis C without hepatic coma; Z86.69 Personal history of other diseases of the nervous system and sense organs; Z87.898 Personal history of other specified conditions; Z79.899 Other long term (current) drug therapy; Z88.0 Allergy status to penicillin; Z88.8 Allergy status to other drugs, medicaments and biological substances

== ENCOUNTER 2018-07-28 17:01 | Emergency (ER) | payer OTHER ==
[~2018-07-28] VITALS: Ht 152.4 cm; Wt 72.7 kg
[~2018-07-28 17:01] MED LIST changes: +ATOM40CA9 PO; +BANO25CA PO; +SUBO12MI SL
[2018-07-28] MEDS ORDERED: DEPO150I12 IM (17:16)
[2018-07-28] MEDS ORDERED: LORazepam 2 MG/ML VIAL (J2060) IV STA (18:06)
[2018-07-28] MEDS ORDERED: NS 1,000 ML IV ONE (18:15)
[2018-07-28 19:12] LABS: BASO % 0.5 % (0.0-1.0); EOS # 0.1 10^3/uL (0.0-0.50); EOS % 0.8 % (0.0-3.0); HEMATOCRIT 38.7 % (36.0-47.0); HEMOGLOBIN 12.6 g/dl (12.0-15.5); LYMPH # 1.4 10^3/uL (1.5-4.5); LYMPH % 21.8 % (24.0-44.0); MEAN CORPUSCULAR HEMOGLOBIN 30.4 pg (27.0-33.0); MEAN CORPUSCULAR HGB CONC 32.6 g/dl (32.0-36.5); MEAN CORPUSCULAR VOLUME 93.3 fl (80.0-96.0); MONO # 0.4 10^3/uL (0.0-0.8); MONO % 7.1 % (0.0-5.0); NEUTROPHILS # 4.3 10^3/uL (1.8-7.7); NEUTROPHILS % 69.3 % (36.0-66.0); PLATELET COUNT, AUTOMATED 188 10^3/uL (150-450); RED BLOOD COUNT 4.15 10^6/uL (4.00-5.40); WHITE BLOOD COUNT 6.2 10^3/uL (4.0-10.0)
[2018-07-28 20:07] LABS: ACETAMINOPHEN LEVEL < 2.0 UG/ML (10.0-30.0); ALBUMIN 4.1 GM/DL (3.2-5.2); ALT/SGPT 32 U/L (12-78); BILIRUBIN,DIRECT 0.1 MG/DL (0.0-0.2); BILIRUBIN,TOTAL 0.7 MG/DL (0.2-1.0); BLOOD UREA NITROGEN 11 MG/DL (7-18); CALCIUM LEVEL 9.2 MG/DL (8.5-10.1); CARBON DIOXIDE LEVEL 22 MEQ/L (21-32); CHLORIDE LEVEL 105 MEQ/L (98-107); CPK CREATINE PHOSPHOKINASE 310 U/L (26-192); CREATININE FOR GFR 0.66 MG/DL (0.55-1.30); ETHYL ALCOHOL (ETHANOL) < 0.003 % (0.000-0.010); GLOMERULAR FILTRATION RATE > 60.0 (>60); GLUCOSE, FASTING 97 MG/DL (70-100); POTASSIUM SERUM 4.6 MEQ/L (3.5-5.1); SALICYLATE LEVEL 3.4 MG/DL (5.0-30.0); SODIUM LEVEL 139 MEQ/L (136-145); THYROID STIMULATING HORMONE 0.648 uIU/ML (0.358-3.740); TOTAL PROTEIN 7.1 GM/DL (6.4-8.2)
[2018-07-28] MEDS ORDERED: methylPREDNISolone INJ 125 MG/2 ML VIAL (J2930) IV ONE (20:45)
[2018-07-28] MEDS ORDERED: levETIRAcetam 250MG TABLET (KEPPRA) PO ONE (21:15)
[2018-07-28] MEDS ORDERED: PRED10TA2 PO (21:18)
[2018-07-28 21:33] VITALS: BP 130/84
== END 2018-07-28 21:40 | disposition home or self-care (01) ==
LOC: M ED 17:01
DX: T78.40XA Allergy, unspecified, initial encounter (principal); F41.9 Anxiety disorder, unspecified; F15.10 Other stimulant abuse, uncomplicated; B18.2 Chronic viral hepatitis C; Z72.0 Tobacco use
CPT/HCPCS: 36415; 80048; 80076; 82550; 84443; 85025; 87040; 93041; 94760; 96360; 96361; 96374; 96375; 99285; G0480; J2060; J2930

== ENCOUNTER 2018-07-29 00:24 | Emergency (ER) | payer OTHER ==
[~2018-07-29 00:24] MED LIST changes: +DEPO150I12 IM
== END 2018-07-29 01:46 | disposition left against medical advice (07) ==
LOC: M ED 00:24
DX: S99.929A Unspecified injury of unspecified foot, initial encounter (principal); Z53.21 Procedure and treatment not carried out due to patient leaving prior to being seen by health care provider

== ENCOUNTER 2018-08-01 14:19 | Emergency (ER) | payer OTHER ==
[~2018-08-01] VITALS: Ht 152.4 cm; Wt 73.6 kg
[2018-08-01] MEDS ORDERED: LEVE10003 (14:27)
[2018-08-01] MEDS ORDERED: SUBO8MIS (14:27)
[2018-08-01] MEDS ORDERED: NS 1,000 ML IV ONE (15:15)
[2018-08-01] MEDS ORDERED: predniSONE 20 MG TAB PO ONE (15:30)
[2018-08-01 16:15] LABS: AMPHETAMINES LEVEL URINE POSITIVE (NEGATIVE); BARBITURATES URINE NEGATIVE (NEGATIVE); BENZODIAZEPINES URINE NEGATIVE (NEGATIVE); CANNABINOIDS URINE NEGATIVE (NEGATIVE); COCAINE METABOLITE URINE NEGATIVE (NEGATIVE); METHADONE URINE NEGATIVE (NEGATIVE); OPIATES URINE NEGATIVE (NEGATIVE); PHENCYCLIDINE URINE NEGATIVE (NEGATIVE)
[2018-08-01 16:24] LABS: BASO % 0.2 % (0.0-1.0); HEMATOCRIT 38.4 % (36.0-47.0); HEMOGLOBIN 12.4 g/dl (12.0-15.5); LYMPH # 1.6 10^3/uL (1.5-4.5); LYMPH % 13.8 % (24.0-44.0); MEAN CORPUSCULAR HEMOGLOBIN 30.3 pg (27.0-33.0); MEAN CORPUSCULAR HGB CONC 32.3 g/dl (32.0-36.5); MEAN CORPUSCULAR VOLUME 93.9 fl (80.0-96.0); MONO # 0.8 10^3/uL (0.0-0.8); MONO % 6.8 % (0.0-5.0); NEUTROPHILS % 78.2 % (36.0-66.0); PLATELET COUNT, AUTOMATED 311 10^3/uL (150-450); RED BLOOD COUNT 4.09 10^6/uL (4.00-5.40); WHITE BLOOD COUNT 11.5 10^3/uL (4.0-10.0)
[2018-08-01 16:45] LABS: ALBUMIN 4.3 GM/DL (3.2-5.2); ALT/SGPT 35 U/L (12-78); BILIRUBIN,DIRECT 0.1 MG/DL (0.0-0.2); BILIRUBIN,TOTAL 0.2 MG/DL (0.2-1.0); BLOOD UREA NITROGEN 14 MG/DL (7-18); CALCIUM LEVEL 10.3 MG/DL (8.5-10.1); CARBON DIOXIDE LEVEL 29 MEQ/L (21-32); CHLORIDE LEVEL 104 MEQ/L (98-107); CPK CREATINE PHOSPHOKINASE 166 U/L (26-192); CREATININE FOR GFR 0.75 MG/DL (0.55-1.30); ETHYL ALCOHOL (ETHANOL) < 0.003 % (0.000-0.010); GLOMERULAR FILTRATION RATE > 60.0 (>60); GLUCOSE, FASTING 112 MG/DL (70-100); MB/CK RELATIVE INDEX 1.81 (< OR =4); POTASSIUM SERUM 4.1 MEQ/L (3.5-5.1); SODIUM LEVEL 141 MEQ/L (136-145); TOTAL PROTEIN 7.4 GM/DL (6.4-8.2); TROPONIN I < 0.02 NG/ML (< 0.10)
[2018-08-01] MEDS ORDERED: ACETAMINOPHEN TAB 650MG DOSE (2X325MG) PO ONE (16:45)
[2018-08-01] MEDS ORDERED: ISOVUE-370 76% 100ML VIAL (Q9967) As Ordered ONE (17:09)
[2018-08-01] MEDS ORDERED: DOXY100C37 PO (18:07)
[2018-08-01 18:23] VITALS: BP 145/95
--- NOTE | 2018-08-01 18:26 | REP ---
HISTORY: Elevated d-dimer. No chest pain. COMPARISON: No priors. CONTRAST: 100 mL Isovue-370 There is excellent visualization of the pulmonary arterial vasculature. There are no focal filling defects present that would be considered consistent with pulmonary emboli. There are no pleural or pericardial effusions. There is no mediastinal or hilar adenopathy. The imaged upper abdomen and imaged osseous structures are within normal limits. Evaluation of the lung johnson show no abnormal nodules, masses or opacities. IMPRESSION: CT findings are within normal limits. Electronically Signed by Matias Oh DO 08/01/2018 07:45 P
--- NOTE | 2018-08-03 08:11 | ECGEPIP ---
[facility] - ED Test Date: 2018-08-01 Pat Name: MELANY LEE Department: Room: - Gender: Female [employer] Supervisor: sherri : 1985 Requested By: NGOC Ramos PA-C Order Number: [id number] Reading MD: Femi Elliott Measurements Intervals [place] Rate: 69 P: 44 UT: 130 QRS: 39 QRSD: 83 T: 25 QT: 358 QTc: 385 Interpretive Statements SINUS RHYTHM WITH SINUS ARRHYTHMIA Electronically Signed on 08-03-2018 8:11:09 EDT by Femi Elliott
== END 2018-08-01 18:24 | disposition home or self-care (01) ==
LOC: M ED 14:19
DX: F15.20 Other stimulant dependence, uncomplicated (principal); F42.4 Excoriation (skin-picking) disorder; B19.20 Unspecified viral hepatitis C without hepatic coma; Z72.0 Tobacco use; Z79.899 Other long term (current) drug therapy; Z88.0 Allergy status to penicillin; Z88.8 Allergy status to other drugs, medicaments and biological substances; Z88.6 Allergy status to analgesic agent; Z88.1 Allergy status to other antibiotic agents
CPT/HCPCS: 71275; 80048; 80076; 80307; 81001; 82550; 82553; 85025; 85379; 93005; 99284; G0480; Q9967

== ENCOUNTER 2019-04-12 00:43 | Emergency (ER) | payer OTHER ==
[~2019-04-12] VITALS: Ht 152.4 cm; Wt 73.8 kg
[~2019-04-12 00:43] MED LIST changes: +DOXY100C37 PO; +HYDR1TAB33 PO; -HYDRO50TAB PO; +LEVE10003; +QUET100T2 PO; -QUET1TAB8 PO; +SUBO8MIS
[2019-04-12 01:32] VITALS: BP 114/75
== END 2019-04-12 01:44 | disposition left against medical advice (07) ==
LOC: M ED 00:43
DX: Z53.21 Procedure and treatment not carried out due to patient leaving prior to being seen by health care provider (principal)

== ENCOUNTER 2019-04-28 07:22 | Emergency (ER) | payer OTHER ==
[~2019-04-28] VITALS: Ht 152.4 cm; Wt 72.5 kg
[2019-04-28] MEDS ORDERED: SUMA50TA2 (07:30)
[2019-04-28] MEDS ORDERED: LATU80TA (07:30)
[2019-04-28] MEDS ORDERED: CLON-412 (07:30)
[2019-04-28 08:14] LABS: BASO % 0.5 % (0.0-1.0); EOS # 0.1 10^3/uL (0.0-0.5); EOS % 1.1 % (0.0-3.0); HEMOGLOBIN 13.3 g/dl (12.0-15.5); LYMPH # 2.1 10^3/uL (1.5-5.0); LYMPH % 38.1 % (24.0-44.0); MEAN CORPUSCULAR HEMOGLOBIN 29.2 pg (27.0-33.0); MEAN CORPUSCULAR HGB CONC 33.3 g/dl (32.0-36.5); MEAN CORPUSCULAR VOLUME 87.7 fl (80.0-96.0); MONO # 0.4 10^3/uL (0.0-0.8); NEUTROPHILS % 53.1 % (36.0-66.0); PLATELET COUNT, AUTOMATED 292 10^3/uL (150-450); RED BLOOD COUNT 4.56 10^6/uL (4.00-5.40); WHITE BLOOD COUNT 5.6 10^3/uL (4.0-10.0)
[2019-04-28] MEDS ORDERED: PEPC1TAB5 PO (09:09)
[2019-04-28 09:28] VITALS: BP 123/67
== END 2019-04-28 09:20 | disposition home or self-care (01) ==
LOC: M ED 07:22
DX: K92.1 Melena (principal); Z79.899 Other long term (current) drug therapy; Z88.2 Allergy status to sulfonamides; Z88.8 Allergy status to other drugs, medicaments and biological substances; Z88.0 Allergy status to penicillin

== ENCOUNTER 2019-06-15 10:15 | Emergency (ER) | payer OTHER ==
[~2019-06-15 10:15] MED LIST changes: -ATOM40CA PO; +ATOM40CA16 PO; +CLON-412; +LATU80TA; +PEPC1TAB5 PO; +SUMA50TA2
[2019-06-15] MEDS ORDERED: LORazepam 2 MG/ML VIAL (J2060) IV STA (10:29)
[2019-06-15] MEDS ORDERED: NS 1,000 ML IV ONE (10:30)
[2019-06-15] MEDS ORDERED: methylPREDNISolone INJ 125 MG/2 ML VIAL (J2930) IV ONE (10:30)
[2019-06-15 10:55] LABS: BASO % 0.5 % (0.0-1.0); EOS # 0.3 10^3/uL (0.0-0.5); EOS % 4.9 % (0.0-3.0); HEMATOCRIT 37.2 % (36.0-47.0); HEMOGLOBIN 12.4 g/dl (12.0-15.5); LYMPH # 2.1 10^3/uL (1.5-5.0); LYMPH % 34.5 % (24.0-44.0); MEAN CORPUSCULAR HEMOGLOBIN 29.1 pg (27.0-33.0); MEAN CORPUSCULAR HGB CONC 33.3 g/dl (32.0-36.5); MEAN CORPUSCULAR VOLUME 87.3 fl (80.0-96.0); MONO # 0.6 10^3/uL (0.0-0.8); MONO % 10.4 % (0.0-5.0); NEUTROPHILS % 49.5 % (36.0-66.0); PLATELET COUNT, AUTOMATED 289 10^3/uL (150-450); RED BLOOD COUNT 4.26 10^6/uL (4.00-5.40)
[2019-06-15 11:14] LABS: HCG, SERUM QUALITATIVE NEGATIVE (NEGATIVE)
[2019-06-15 11:23] LABS: ALT/SGPT 37 U/L (12-78); BILIRUBIN,DIRECT 0.1 MG/DL (0.0-0.2); BILIRUBIN,TOTAL 0.3 MG/DL (0.2-1.0); ETHYL ALCOHOL (ETHANOL) < 0.003 % (0.000-0.010); SALICYLATE LEVEL 1.7 MG/DL (5.0-30.0); TOTAL PROTEIN 7.5 GM/DL (6.4-8.2)
[2019-06-15] MEDS ORDERED: PEPC1TAB5 PO (11:38)
[2019-06-15] MEDS ORDERED: PRED20TA PO (11:38)
--- NOTE | 2019-06-15 11:47 | ECGEPIP ---
[facility] - ED Test Date: 2019-06-15 Pat Name: MELANY LEE Department: Room: - Gender: Female Health Associate: roney hernandez : 1985 Requested By: Kathrine Estevez Order Number: [id number] Reading MD: Kathrine Estevez Measurements Intervals [place] Rate: 99 P: 51 NE: 151 QRS: 48 QRSD: 93 T: 20 QT: 345 QTc: 443 Interpretive Statements SINUS RHYTHM MINIMAL ST DEPRESSION CW 08/01/[address] T WAVE CHANGES Electronically Signed on 06-15-2019 11:47:26 EDT by Kathrine Estevez
[2019-06-15 11:53] VITALS: BP 120/64
[2019-06-15 12:12] LABS: AMPHETAMINES LEVEL URINE POSITIVE (NEGATIVE); BARBITURATES URINE NEGATIVE (NEGATIVE); BENZODIAZEPINES URINE NEGATIVE (NEGATIVE); CANNABINOIDS URINE NEGATIVE (NEGATIVE); COCAINE METABOLITE URINE NEGATIVE (NEGATIVE); METHADONE URINE NEGATIVE (NEGATIVE); OPIATES URINE NEGATIVE (NEGATIVE); PHENCYCLIDINE URINE NEGATIVE (NEGATIVE)
== END 2019-06-15 11:55 | disposition home or self-care (01) ==
LOC: M ED 10:15
DX: T78.40XA Allergy, unspecified, initial encounter (principal); F10.129 Alcohol abuse with intoxication, unspecified; F19.10 Other psychoactive substance abuse, uncomplicated; F17.218 Nicotine dependence, cigarettes, with other nicotine-induced disorders; B18.2 Chronic viral hepatitis C; Z88.0 Allergy status to penicillin; Z88.8 Allergy status to other drugs, medicaments and biological substances; Z88.2 Allergy status to sulfonamides
CPT/HCPCS: 80047; 80076; 80307; 84443; 84703; 85025; 93005; 93041; 94760; 96361; 96374; 96375; 99285; G0480; J2060; J2930

== ENCOUNTER 2019-06-18 00:56 | Emergency (ER) | payer OTHER ==
[~2019-06-18] VITALS: Ht 152.4 cm; Wt 75.0 kg
[~2019-06-18 00:56] MED LIST changes: +PRED20TA PO
[2019-06-18 00:59] VITALS: BP 116/74
[2019-06-18] MEDS ORDERED: AMIT50TA (01:06)
[2019-06-18] MEDS ORDERED: FAMO20TA5 (01:06)
[2019-06-18] MEDS ORDERED: OXYMETAZOLINE NASAL SPRAY (AFRIN) ONE (01:15)
[2019-06-18] MEDS ORDERED: CETACAINE SPRAY 5GM TOP ONE (01:15)
[2019-06-18] MEDS ORDERED: LIDOCAINE 2% 5ML JELLY UROJET As Ordered ONE (01:28)
[2019-06-18] MEDS ORDERED: AZEL1SPR3 NARES (01:38)
[2019-06-18] MEDS ORDERED: PRIL20TA2 PO (01:38)
[2019-06-18] MEDS ORDERED: LIDOCAINE 2% 5ML JELLY UROJET TOP SCH (01:45)
[2019-06-19] MEDS ORDERED: CLEO300C2 PO (16:54)
== END 2019-06-18 01:52 | disposition home or self-care (01) ==
LOC: M ED 00:56
DX: K21.9 Gastro-esophageal reflux disease without esophagitis (principal); R09.89 Other specified symptoms and signs involving the circulatory and respiratory systems; B18.2 Chronic viral hepatitis C; F19.10 Other psychoactive substance abuse, uncomplicated; Z88.0 Allergy status to penicillin; Z88.6 Allergy status to analgesic agent; Z88.8 Allergy status to other drugs, medicaments and biological substances; Z79.899 Other long term (current) drug therapy

== ENCOUNTER 2019-06-19 14:17 | Emergency (ER) | payer OTHER ==
[~2019-06-19] VITALS: Ht 152.4 cm; Wt 69.6 kg
[~2019-06-19 14:17] MED LIST changes: +AMIT50TA; +AZEL1SPR3 NARES; +FAMO20TA5; +PRIL20TA2 PO
[2019-06-19 15:53] LABS: BASO % 0.1 % (0.0-1.0); HEMATOCRIT 39.5 % (36.0-47.0); HEMOGLOBIN 13.6 g/dl (12.0-15.5); LYMPH # 1.7 10^3/uL (1.5-5.0); LYMPH % 19.5 % (24.0-44.0); MEAN CORPUSCULAR HGB CONC 34.4 g/dl (32.0-36.5); MEAN CORPUSCULAR VOLUME 87.2 fl (80.0-96.0); MONO # 0.7 10^3/uL (0.0-0.8); MONO % 8.5 % (0.0-5.0); NEUTROPHILS # 6.2 10^3/uL (1.5-8.5); NEUTROPHILS % 71.4 % (36.0-66.0); PLATELET COUNT, AUTOMATED 375 10^3/uL (150-450); RED BLOOD COUNT 4.53 10^6/uL (4.00-5.40); WHITE BLOOD COUNT 8.7 10^3/uL (4.0-10.0)
[2019-06-19] MEDS ORDERED: LORazepam 2 MG/ML VIAL (J2060) IV STA (15:53)
[2019-06-19] MEDS ORDERED: ISOVUE-370 76% 100ML VIAL As Ordered ONE (15:57)
[2019-06-19] MEDS ORDERED: NS 1,000 ML IV ONE (16:00)
[2019-06-19 16:19] LABS: CK-MB VALUE MASS 1.7 NG/ML (<3.6); CPK CREATINE PHOSPHOKINASE 111 U/L (26-192); MB/CK RELATIVE INDEX 1.53 (< OR =4); TROPONIN I < 0.02 NG/ML (< 0.10)
--- NOTE | 2019-06-19 16:40 | REP ---
CHEST: Two views. There is no evidence of acute infiltrate. No pleural effusion is seen. The heart is normal in size. The mediastinal silhouette is unremarkable. The visualized osseous structures are intact. IMPRESSION: No acute pulmonary disease. Electronically Signed by Ron Onofre MD 06/20/2019 11:54 A
--- NOTE | 2019-06-19 16:46 | REP ---
CT ANGIOGRAM OF THE CHEST: TECHNIQUE: Axial contrast enhanced images from the thoracic inlet to the upper abdomen using 100 mL Isovue 370 intravenous contrast material with multiplanar reformations. Tiny calcified granuloma seen in the posterior right lower lobe. No infiltrate is seen in either lung. There is no CT evidence of pulmonary embolism. There is no thoracic aortic aneurysm or dissection. There is no mediastinal, hilar, nor chest wall lymphadenopathy. There is no pleural or pericardial effusion. Heart is normal in size. IMPRESSION: No infiltrate, aneurysm, dissection, or pulmonary embolism. Electronically Signed by Ron Onofre MD 06/20/2019 11:54 A
--- NOTE | 2019-06-19 16:50 | REP ---
CT NECK WITH IV CONTRAST: CT neck performed following the intravenous administration of 100 mL of Isovue-370. Sagittal and coronal reconstruction images are performed. There is mild streaky induration of the supraclavicular fat just lateral to the right jugular vein and sternocleidomastoid muscle. There is no arterial or venous extravasation. No hematoma or fluid collection is seen. Normal sized lymph nodes are seen in the neck soft tissues bilaterally. The thyroid, parotid, and submandibular glands are unremarkable. Airway is patent. Globes are intact. There is moderate mucosal thickening in the right maxillary sinus. There is mild mucosal thickening in the right ethmoids. IMPRESSION: No mass or fluid collection. No evidence of vascular extravasation. There is mild induration of fat in the supraclavicular region just lateral to the right sternocleidomastoid muscle and jugular vein. Electronically Signed by Ron Onofre MD 06/20/2019 11:58 A
[2019-06-19] MEDS ORDERED: CLEO300C2 PO (16:54)
[2019-06-19 16:59] VITALS: BP 140/88
--- NOTE | 2019-06-20 13:58 | ECGEPIP ---
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
== END 2019-06-19 17:00 | disposition home or self-care (01) ==
LOC: M ED 14:17
DX: R07.9 Chest pain, unspecified (principal); J02.9 Acute pharyngitis, unspecified; B18.2 Chronic viral hepatitis C; K21.9 Gastro-esophageal reflux disease without esophagitis; F41.9 Anxiety disorder, unspecified; F19.10 Other psychoactive substance abuse, uncomplicated; F17.210 Nicotine dependence, cigarettes, uncomplicated; Z88.0 Allergy status to penicillin; Z88.8 Allergy status to other drugs, medicaments and biological substances; Z79.899 Other long term (current) drug therapy
CPT/HCPCS: 70491; 71046; 71275; 80047; 82550; 82553; 84702; 85025; 85379; 87880; 93005; 96361; 96374; 99284; J2060; Q9967

== ENCOUNTER 2019-07-03 15:07 | Emergency (ER) | payer OTHER ==
[~2019-07-03 15:07] MED LIST changes: +CLEO300C2 PO
[2019-07-03 16:46] LABS: BASO % 0.5 % (0.0-1.0); EOS # 0.2 10^3/uL (0.0-0.5); EOS % 2.8 % (0.0-3.0); HEMATOCRIT 36.2 % (36.0-47.0); LYMPH # 2.5 10^3/uL (1.5-5.0); LYMPH % 38.8 % (24.0-44.0); MEAN CORPUSCULAR HEMOGLOBIN 30.1 pg (27.0-33.0); MEAN CORPUSCULAR HGB CONC 33.1 g/dl (32.0-36.5); MEAN CORPUSCULAR VOLUME 90.7 fl (80.0-96.0); MONO # 0.7 10^3/uL (0.0-0.8); MONO % 10.6 % (0.0-5.0); NEUTROPHILS % 46.8 % (36.0-66.0); PLATELET COUNT, AUTOMATED 295 10^3/uL (150-450); RED BLOOD COUNT 3.99 10^6/uL (4.00-5.40); WHITE BLOOD COUNT 6.4 10^3/uL (4.0-10.0)
[2019-07-03 17:28] LABS: ERYTHROCYTE SEDIMENTATION RATE 17 mm/hr (0-20)
[2019-07-03 18:02] VITALS: BP 126/70
[2019-07-27] MEDS ORDERED: IMIT50TA (16:35)
[2019-07-27] MEDS ORDERED: RISP1TAB3 PO (16:35)
== END 2019-07-03 18:10 | disposition home or self-care (01) ==
LOC: EDUNIT# 15:07 → EDBD 15:07 → M ED 15:07
DX: L53.8 Other specified erythematous conditions (principal); F19.10 Other psychoactive substance abuse, uncomplicated; Z88.0 Allergy status to penicillin; Z88.2 Allergy status to sulfonamides; Z88.8 Allergy status to other drugs, medicaments and biological substances; Z79.899 Other long term (current) drug therapy

== ENCOUNTER 2019-07-27 16:18 | Emergency (ER) | payer OTHER ==
[~2019-07-27] VITALS: Ht 152.4 cm; Wt 71.9 kg
[~2019-07-27 16:18] MED LIST changes: -BUPR200T PO; +BUPR200T2 PO; +CHLO100T30; -CHLOR10TAB; +QUET50TA3 PO; -QUET5TAB PO; -SUBO8MIS; +SUBO8MIS SL
[2019-07-27] MEDS ORDERED: CLEO300C2 (16:35)
[2019-07-27] MEDS ORDERED: BUPREN/NALOX SL (16:35)
[2019-07-27] MEDS ORDERED: RISP-8 PO (16:35)
[2019-07-27] MEDS ORDERED: AMIT75TA PO (16:35)
[2019-07-27] MEDS ORDERED: IMIT50TA PO (16:35)
[2019-07-27] MEDS ORDERED: GABA-845 PO (16:35)
[2019-07-27] MEDS ORDERED: METOCLOPRAMIDE INJ 10MG/2ML VIAL (J2765 PER 1) IV ONE (16:45)
[2019-07-27] MEDS ORDERED: NS 1,000 ML IV ONE (16:45)
[2019-07-27 17:04] LABS: HEMATOCRIT 41.2 % (36.0-47.0); HEMOGLOBIN 13.3 g/dl (12.0-15.5); MEAN CORPUSCULAR HEMOGLOBIN 29.9 pg (27.0-33.0); MEAN CORPUSCULAR HGB CONC 32.3 g/dl (32.0-36.5); MEAN CORPUSCULAR VOLUME 92.6 fl (80.0-96.0); PLATELET COUNT, AUTOMATED 284 10^3/uL (150-450); RED BLOOD COUNT 4.45 10^6/uL (4.00-5.40); WHITE BLOOD COUNT 5.1 10^3/uL (4.0-10.0)
[2019-07-27 17:27] LABS: ALBUMIN 4.4 GM/DL (3.2-5.2); ALT/SGPT 33 U/L (12-78); BILIRUBIN,DIRECT 0.1 MG/DL (0.0-0.2); BILIRUBIN,TOTAL 0.4 MG/DL (0.2-1.0); BLOOD UREA NITROGEN 11 MG/DL (7-18); CALCIUM LEVEL 9.1 MG/DL (8.5-10.1); CARBON DIOXIDE LEVEL 33 MEQ/L (21-32); CHLORIDE LEVEL 102 MEQ/L (98-107); CREATININE FOR GFR 0.69 MG/DL (0.55-1.30); GLOMERULAR FILTRATION RATE > 60.0 (>60); GLUCOSE, FASTING 95 MG/DL (70-100); POTASSIUM SERUM 3.8 MEQ/L (3.5-5.1); SODIUM LEVEL 137 MEQ/L (136-145); TOTAL PROTEIN 7.7 GM/DL (6.4-8.2)
[2019-07-27 18:00] VITALS: BP 92/53
[2019-09-10] MEDS ORDERED: CLIN300C6 PO (04:50)
[2019-11-10] MEDS ORDERED: LORA-930 PO (12:02)
[2019-11-10] MEDS ORDERED: RISP-9 PO ×2 (12:02)
[2019-11-13] MEDS ORDERED: AMIT25TA17 PO (10:26)
[2019-12-13] MEDS ORDERED: RISP-9 PO (23:00)
[2020-03-21] MEDS ORDERED: VANC125C3 PO (12:11)
== END 2019-07-27 18:08 | disposition home or self-care (01) ==
LOC: EDBD 16:18 → M ED 16:18
DX: R53.81 Other malaise (principal); R53.83 Other fatigue; G40.909 Epilepsy, unspecified, not intractable, without status epilepticus; F15.10 Other stimulant abuse, uncomplicated; Z79.899 Other long term (current) drug therapy; Z88.0 Allergy status to penicillin; Z88.2 Allergy status to sulfonamides; Z88.8 Allergy status to other drugs, medicaments and biological substances; F17.210 Nicotine dependence, cigarettes, uncomplicated
CPT/HCPCS: 36415; 80048; 80076; 85027; 96361; 96374; 99284; J2765

== ENCOUNTER 2019-08-01 01:21 | Emergency (ER) | payer OTHER ==
[~2019-08-01] VITALS: Ht 152.4 cm; Wt 79.1 kg
[~2019-08-01 01:21] MED LIST changes: +AMIT75TA PO; +BUPREN/NALOX SL; +CLEO300C2; +IMIT50TA PO; +RISP-8 PO
[2019-08-01] MEDS ORDERED: GI COCKTAIL 50ML BTL(HYOSCYAMINE/MAALOX/LIDOCAINE VISCOUS)(1:3:1) PO ONE (02:00)
[2019-08-01 03:00] VITALS: BP 101/55
[2019-08-01] MEDS ORDERED: PRIL20TA2 PO (03:33)
[2019-08-01] MEDS ORDERED: SUCR1TA PO (03:33)
--- NOTE | 2019-08-01 04:51 | REP ---
Clinical: Cough . Comparison: 06/19/2019 . Findings: The mediastinum and cardiac silhouette are stable and within normal limits for portable technique. The lung johnson are clear without acute consolidation, effusion, or pneumothorax. Skeletal structures are intact. Impression: No acute cardiopulmonary process appreciated. Electronically Signed by Broderick Mondragon MD 08/01/2019 04:42 A
--- NOTE | 2019-08-01 21:25 | ECGEPIP ---
[facility] Test Date: 2019-08-01 Pat Name: MELANY LEE Department: Room: - Gender: Female Document Control Supervisor: mack : 1985 Requested By: FEMI Sin Order Number: [id number] Reading MD: Femi Welsh Measurements Intervals [place] Rate: 105 P: 53 GA: 165 QRS: 29 QRSD: 89 T: 26 QT: 347 QTc: 460 Interpretive Statements SINUS TACHYCARDIA No significant change compared with 06/19/2019 Electronically Signed on 08-01-2019 21:25:20 EDT by Femi Welsh
[2019-09-10] MEDS ORDERED: CLIN300C6 PO (04:50)
[2019-11-10] MEDS ORDERED: LORA-930 PO (12:02)
[2019-11-10] MEDS ORDERED: RISP-9 PO ×2 (12:02)
[2019-11-13] MEDS ORDERED: AMIT25TA17 PO (10:26)
[2019-12-13] MEDS ORDERED: RISP-9 PO (23:00)
[2020-03-21] MEDS ORDERED: VANC125C3 PO (12:11)
== END 2019-08-01 03:38 | disposition home or self-care (01) ==
LOC: M ED 01:21
DX: K21.0 Gastro-esophageal reflux disease with esophagitis (principal); R00.0 Tachycardia, unspecified; F17.200 Nicotine dependence, unspecified, uncomplicated; F19.10 Other psychoactive substance abuse, uncomplicated; Z79.899 Other long term (current) drug therapy; Z88.6 Allergy status to analgesic agent; Z88.8 Allergy status to other drugs, medicaments and biological substances; Z88.0 Allergy status to penicillin

== ENCOUNTER 2019-08-05 11:23 | Emergency (ER) | payer OTHER ==
[~2019-08-05] VITALS: Ht 152.4 cm; Wt 79.1 kg
[~2019-08-05 11:23] MED LIST changes: +BUPR200T PO; -BUPR200T2 PO; -CHLO100T30; +CHLOR10TAB; +IMIT50TA; -IMIT50TA PO; -QUET50TA3 PO; +QUET5TAB PO; -RISP-8 PO; +RISP1TAB3 PO; +SUBO8MIS; -SUBO8MIS SL; +SUCR1TA PO
[2019-08-05 13:41] LABS: HEMATOCRIT 37.5 % (36.0-47.0); MEAN CORPUSCULAR HEMOGLOBIN 29.9 pg (27.0-33.0); MEAN CORPUSCULAR VOLUME 93.3 fl (80.0-96.0); PLATELET COUNT, AUTOMATED 249 10^3/uL (150-450); RED BLOOD COUNT 4.02 10^6/uL (4.00-5.40)
[2019-08-05 14:13] LABS: ALBUMIN 3.6 GM/DL (3.2-5.2); ALT/SGPT 44 U/L (12-78); BILIRUBIN,DIRECT < 0.1 MG/DL (0.0-0.2); BILIRUBIN,TOTAL 0.3 MG/DL (0.2-1.0); TOTAL PROTEIN 6.8 GM/DL (6.4-8.2)
[2019-08-05 14:33] VITALS: BP 123/64
--- NOTE | 2019-08-05 20:15 | ECGEPIP ---
[facility] - ED Test Date: 2019-08-05 Pat Name: MELANY LEE Department: Room: - Gender: Female Safety Officer: roney hernandez : 1985 Requested By: Seth Limon Order Number: [id number] Reading MD: Shirley Spears Measurements Intervals [place] Rate: 104 P: 41 NH: 140 QRS: 32 QRSD: 86 T: 20 QT: 338 QTc: 446 Interpretive Statements SINUS TACHYCARDIA ABNORMAL RHYTHM ECG SIMILAR 08/01/19 Electronically Signed on 08-05-2019 20:15:37 EDT by Shirley Spears
== END 2019-08-05 14:40 | disposition home or self-care (01) ==
LOC: EDBD 11:23 → M ED 11:23
DX: R53.81 Other malaise (principal); R53.83 Other fatigue; R00.0 Tachycardia, unspecified; B19.20 Unspecified viral hepatitis C without hepatic coma; K21.9 Gastro-esophageal reflux disease without esophagitis; F17.200 Nicotine dependence, unspecified, uncomplicated; F19.10 Other psychoactive substance abuse, uncomplicated; Z88.0 Allergy status to penicillin; Z88.8 Allergy status to other drugs, medicaments and biological substances; Z88.2 Allergy status to sulfonamides; Z79.899 Other long term (current) drug therapy; Z79.2 Long term (current) use of antibiotics

== ENCOUNTER 2019-09-10 04:36 | Emergency (ER) | payer OTHER ==
[~2019-09-10] VITALS: Ht 152.4 cm; Wt 74.5 kg
[~2019-09-10 04:36] MED LIST changes: +CHLO100T30; -CHLOR10TAB; -IMIT50TA; +IMIT50TA PO; -SUBO8MIS; +SUBO8MIS SL
[2019-09-10] MEDS ORDERED: CLIN300C5 PO (04:50)
[2019-09-10 06:01] VITALS: BP 93/43
--- NOTE | 2019-09-10 10:18 | REP ---
CHEST, TWO VIEWS: There is no evidence of acute infiltrate. No pleural effusion is seen. The heart is normal in size. The mediastinal silhouette is unremarkable. The visualized osseous structures are intact. IMPRESSION: No acute pulmonary disease. Electronically Signed by Ron Onofre MD 09/10/2019 11:18 P
[2019-09-10] MEDS ORDERED: BACI500O60 TOP (16:05)
[2019-09-11] MEDS ORDERED: CLONI1TA PO (03:35)
== END 2019-09-10 06:21 | disposition home or self-care (01) ==
LOC: M ED 04:36
DX: R53.81 Other malaise (principal); F42.4 Excoriation (skin-picking) disorder; F11.20 Opioid dependence, uncomplicated; F19.10 Other psychoactive substance abuse, uncomplicated; F17.200 Nicotine dependence, unspecified, uncomplicated; Z79.899 Other long term (current) drug therapy; Z88.0 Allergy status to penicillin; Z88.1 Allergy status to other antibiotic agents; Z88.8 Allergy status to other drugs, medicaments and biological substances

== ENCOUNTER 2019-09-10 11:33 | Emergency (ER) | payer OTHER ==
[~2019-09-10] VITALS: Ht 152.4 cm; Wt 79.1 kg
[~2019-09-10 11:33] MED LIST changes: -CHLO100T30; +CHLOR10TAB; +CLIN300C5 PO
[2019-09-10 11:34] VITALS: BP 118/56
[2019-09-10] MEDS ORDERED: BACI500O60 TOP (16:05)
[2019-09-11] MEDS ORDERED: CLONI1TA PO (03:35)
== END 2019-09-10 12:03 | disposition left against medical advice (07) ==
LOC: M ED 11:33
DX: Z53.21 Procedure and treatment not carried out due to patient leaving prior to being seen by health care provider (principal)

== ENCOUNTER 2019-09-10 14:20 | Emergency (ER) | payer OTHER ==
[~2019-09-10 14:20] MED LIST changes: +CHLO100T30; -CHLOR10TAB
[2019-09-10] MEDS ORDERED: BACI500O60 TOP (16:05)
[2019-09-10 16:12] VITALS: BP 121/75
[2019-09-11] MEDS ORDERED: CLONI1TA PO (03:35)
== END 2019-09-10 16:13 | disposition home or self-care (01) ==
LOC: M ED 14:20
DX: L28.1 Prurigo nodularis (principal); F17.200 Nicotine dependence, unspecified, uncomplicated; F19.20 Other psychoactive substance dependence, uncomplicated; F41.9 Anxiety disorder, unspecified; B18.2 Chronic viral hepatitis C; Z79.2 Long term (current) use of antibiotics; Z79.899 Other long term (current) drug therapy; Z88.0 Allergy status to penicillin; Z88.6 Allergy status to analgesic agent; Z88.8 Allergy status to other drugs, medicaments and biological substances

== ENCOUNTER 2019-09-10 20:23 | Emergency (ER) | payer OTHER ==
[~2019-09-10] VITALS: Ht 152.4 cm; Wt 73.9 kg
[~2019-09-10 20:23] MED LIST changes: +BACI500O60 TOP
[2019-09-10] MEDS ORDERED: NS 1,000 ML IV ONE (22:45)
[2019-09-10 22:51] LABS: BASO % 0.6 % (0.0-1.0); EOS # 0.2 10^3/uL (0.0-0.5); EOS % 3.3 % (0.0-3.0); HEMATOCRIT 37.4 % (36.0-47.0); HEMOGLOBIN 12.1 g/dl (12.0-15.5); LYMPH # 1.9 10^3/uL (1.5-5.0); LYMPH % 38.5 % (24.0-44.0); MEAN CORPUSCULAR HEMOGLOBIN 30.2 pg (27.0-33.0); MEAN CORPUSCULAR HGB CONC 32.4 g/dl (32.0-36.5); MEAN CORPUSCULAR VOLUME 93.3 fl (80.0-96.0); MONO # 0.5 10^3/uL (0.0-0.8); MONO % 11.1 % (0.0-5.0); NEUTROPHILS # 2.3 10^3/uL (1.5-8.5); NEUTROPHILS % 46.3 % (36.0-66.0); PLATELET COUNT, AUTOMATED 244 10^3/uL (150-450); RED BLOOD COUNT 4.01 10^6/uL (4.00-5.40); WHITE BLOOD COUNT 4.9 10^3/uL (4.0-10.0)
[2019-09-10 23:01] LABS: INR 1.04; PROTHROMBIN TIME 13.3 SECONDS (11.8-14.0)
[2019-09-10 23:02] LABS: PARTIAL THROMBOPLASTIN TIME 36.8 SECONDS (25.0-38.4)
[2019-09-10 23:21] LABS: BLOOD UREA NITROGEN 9 MG/DL (7-18); CALCIUM LEVEL 8.7 MG/DL (8.5-10.1); CARBON DIOXIDE LEVEL 28 MEQ/L (21-32); CHLORIDE LEVEL 106 MEQ/L (98-107); CREATININE FOR GFR 0.69 MG/DL (0.55-1.30); GLOMERULAR FILTRATION RATE > 60.0 (>60); GLUCOSE, FASTING 96 MG/DL (70-100); POTASSIUM SERUM 4.1 MEQ/L (3.5-5.1); SODIUM LEVEL 140 MEQ/L (136-145)
[2019-09-11 00:01] VITALS: BP 114/65
[2019-09-11] MEDS ORDERED: CLONI1TA PO (03:35)
== END 2019-09-11 00:08 | disposition home or self-care (01) ==
LOC: M ED 20:23
DX: S80.12XA Contusion of left lower leg, initial encounter (principal); J34.89 Other specified disorders of nose and nasal sinuses; B18.2 Chronic viral hepatitis C; F19.10 Other psychoactive substance abuse, uncomplicated; F41.9 Anxiety disorder, unspecified; F32.9 Major depressive disorder, single episode, unspecified; Z79.2 Long term (current) use of antibiotics; Z79.899 Other long term (current) drug therapy; Z86.14 Personal history of Methicillin resistant Staphylococcus aureus infection; Y92.9 Unspecified place or not applicable; Y93.9 Activity, unspecified; Y99.9 Unspecified external cause status

== ENCOUNTER 2019-09-11 03:27 | Emergency (ER) | payer OTHER ==
[~2019-09-11] VITALS: Ht 152.4 cm; Wt 74.0 kg
[2019-09-11 03:27] VITALS: BP 155/77
[~2019-09-11 03:27] MED LIST changes: -CHLO100T30; +CHLOR10TAB
[2019-09-11] MEDS ORDERED: CLONI1TA PO (03:35)
== END 2019-09-11 03:54 | disposition left against medical advice (07) ==
LOC: M ED 03:27
DX: Z53.21 Procedure and treatment not carried out due to patient leaving prior to being seen by health care provider (principal)

== ENCOUNTER 2019-09-11 05:15 | Emergency (ER) | payer OTHER ==
[~2019-09-11] VITALS: Ht 152.4 cm; Wt 74.0 kg
[2019-09-11 05:15] VITALS: BP 127/87
[~2019-09-11 05:15] MED LIST changes: +CLONI1TA PO
== END 2019-09-11 06:17 | disposition left against medical advice (07) ==
LOC: M ED 05:15
DX: Z53.21 Procedure and treatment not carried out due to patient leaving prior to being seen by health care provider (principal)

== ENCOUNTER 2019-09-17 17:51 | Emergency (ER) | payer OTHER ==
[~2019-09-17 17:51] MED LIST changes: +CHLO100T30; -CHLOR10TAB
[2019-09-17] MEDS ORDERED: diphenhydrAMINE 50MG/ML VIAL (J1200) IV STA (18:29)
[2019-09-17] MEDS ORDERED: PANTOPRAZOLE 40MG VIAL (C9113 PER 1) IV ONE (18:30)
[2019-09-17] MEDS ORDERED: METOCLOPRAMIDE INJ 10MG/2ML VIAL (J2765 PER 1) IV ONE (18:30)
[2019-09-17] MEDS ORDERED: NS 1,000 ML IV ONE (18:30)
--- NOTE | 2019-09-17 19:06 | REP ---
Acute abdominal series: Four views. History: Abdomen and chest discomfort. Comparison chest x-ray: September 10, 2019. Findings: Monitoring electrodes overlie the chest. Lungs are well inflated and clear. There is no evidence of infiltrate or free subdiaphragmatic air. Heart size is normal. Supine and erect views of the abdomen show air and some stool in a the proximal colon. No large or small bowel dilation is seen. Psoas margins and flank stripes are intact. No mass, organomegaly, or pathologic calcification is seen Impression: Unremarkable acute abdominal series. Electronically Signed by Romero Her MD 09/17/2019 06:57 P
[2019-09-17] MEDS ORDERED: cloNIDine 0.2 MG TAB PO ONE (20:00)
[2019-09-17 20:10] VITALS: BP 141/55
[2019-09-17] MEDS ORDERED: GI COCKTAIL 50ML BTL(HYOSCYAMINE/MAALOX/LIDOCAINE VISCOUS)(1:3:1) PO ONE (20:30)
[2019-09-17] MEDS ORDERED: SUCR1TA PO (20:51)
[2019-09-17 21:06] VITALS: BP 130/88
--- NOTE | 2019-09-18 08:06 | ECGEPIP ---
[facility] - ED Test Date: 2019-09-17 Pat Name: MELANY LEE Department: Room: - Gender: Female Team Supervisor: sherri : 1985 Requested By: CALEB DIEGO Order Number: [id number] Reading MD: Shirley Spears Measurements Intervals [place] Rate: 134 P: 60 AR: 160 QRS: 33 QRSD: 77 T: 65 QT: 331 QTc: 496 Interpretive Statements SINUS TACHYCARDIA NONSPECIFIC ST & T-WAVE ABNORMALITY ABNORMAL RHYTHM ECG INCREASED RATE 08/05/19 Electronically Signed on 09-18-2019 8:05:36 EDT by Shirley Spears
== END 2019-09-17 21:08 | disposition home or self-care (01) ==
LOC: EDBD 17:51 → M ED 17:51
DX: K29.70 Gastritis, unspecified, without bleeding (principal); F41.1 Generalized anxiety disorder; F19.10 Other psychoactive substance abuse, uncomplicated; R00.0 Tachycardia, unspecified; B19.20 Unspecified viral hepatitis C without hepatic coma; F17.210 Nicotine dependence, cigarettes, uncomplicated; Z88.0 Allergy status to penicillin; Z79.899 Other long term (current) drug therapy; Z79.891 Long term (current) use of opiate analgesic; Z79.2 Long term (current) use of antibiotics

== ENCOUNTER 2019-09-18 03:27 | Emergency (ER) | payer OTHER ==
[~2019-09-18 03:27] MED LIST changes: -CHLO100T30; +CHLOR10TAB
[2019-09-18] MEDS ORDERED: BACIOIN7 TOP (12:49)
== END 2019-09-18 03:39 | disposition left against medical advice (07) ==
LOC: M ED 03:27
DX: Z53.21 Procedure and treatment not carried out due to patient leaving prior to being seen by health care provider (principal)

== ENCOUNTER 2019-09-18 05:26 | Emergency (ER) | payer OTHER ==
[~2019-09-18 05:26] MED LIST changes: +CHLO100T30; -CHLOR10TAB
[2019-09-18 05:30] VITALS: BP 144/86
== END 2019-09-18 07:05 | disposition left against medical advice (07) ==
LOC: EDBD 05:26 → M ED 05:26
DX: Z53.21 Procedure and treatment not carried out due to patient leaving prior to being seen by health care provider (principal)

== ENCOUNTER 2019-09-23 00:41 | Emergency (ER) | payer OTHER | END 2019-09-23 03:40 | disposition left against medical advice (07) | LOC: M ED 00:41 | DX: F15.10 Other stimulant abuse, uncomplicated (principal); T14.8XXA Other injury of unspecified body region, initial encounter; X58.XXXA Exposure to other specified factors, initial encounter; Y92.89 Other specified places as the place of occurrence of the external cause; Z79.899 Other long term (current) drug therapy; Z88.0 Allergy status to penicillin; Z88.1 Allergy status to other antibiotic agents; F17.210 Nicotine dependence, cigarettes, uncomplicated ==

== ENCOUNTER 2019-09-23 06:01 | Emergency (ER) | payer OTHER ==
[2019-10-19 22:43] LABS: ACETAMINOPHEN LEVEL < 2.0 UG/ML (10.0-30.0); ALBUMIN 3.7 GM/DL (3.2-5.2); ALT/SGPT 47 U/L (12-78); AMPHETAMINES LEVEL URINE POSITIVE (NEGATIVE); BARBITURATES URINE NEGATIVE (NEGATIVE); BENZODIAZEPINES URINE NEGATIVE (NEGATIVE); BILIRUBIN,DIRECT < 0.1 MG/DL (0.0-0.2); BILIRUBIN,TOTAL 0.2 MG/DL (0.2-1.0); BLOOD UREA NITROGEN 9 MG/DL (7-18); CALCIUM LEVEL 8.9 MG/DL (8.5-10.1); CANNABINOIDS URINE NEGATIVE (NEGATIVE); CARBON DIOXIDE LEVEL 28 MEQ/L (21-32); CHLORIDE LEVEL 105 MEQ/L (98-107); COCAINE METABOLITE URINE NEGATIVE (NEGATIVE); CREATININE FOR GFR 0.87 MG/DL (0.55-1.30); ETHYL ALCOHOL (ETHANOL) < 0.003 % (0.000-0.010); GLOMERULAR FILTRATION RATE > 60.0 (>60); GLUCOSE, FASTING 99 MG/DL (70-100); METHADONE URINE NEGATIVE (NEGATIVE); OPIATES URINE POSITIVE (NEGATIVE); PHENCYCLIDINE URINE NEGATIVE (NEGATIVE); POTASSIUM SERUM 4.2 MEQ/L (3.5-5.1); SALICYLATE LEVEL 3.3 MG/DL (5.0-30.0); SODIUM LEVEL 141 MEQ/L (136-145); TOTAL PROTEIN 6.9 GM/DL (6.4-8.2)
[2019-11-01 10:59] LABS: MEAN CORPUSCULAR HEMOGLOBIN 30.1 pg (27.0-33.0); MEAN CORPUSCULAR HGB CONC 32.4 g/dl (32.0-36.5); MEAN CORPUSCULAR VOLUME 92.7 fl (80.0-96.0); PLATELET COUNT, AUTOMATED 260 10^3/uL (150-450); RED BLOOD COUNT 3.99 10^6/uL (4.00-5.40); WHITE BLOOD COUNT 5.9 10^3/uL (4.0-10.0)
== END 2019-09-23 11:00 | disposition home or self-care (01) ==
LOC: M ED 06:01
DX: F11.10 Opioid abuse, uncomplicated (principal); F15.10 Other stimulant abuse, uncomplicated; F25.9 Schizoaffective disorder, unspecified; F17.210 Nicotine dependence, cigarettes, uncomplicated
CPT/HCPCS: 36415; 80048; 80076; 80307; 84443; 84703; 85027; 99283; G0480

== ENCOUNTER 2019-10-07 04:28 | Emergency (ER) | payer OTHER ==
[2019-10-07] MEDS ORDERED: ACETAMINOPHEN 500 MG TAB As Ordered ONE (09:28)
[2019-10-07] MEDS ORDERED: ACETAMINOPHEN 500 MG TAB ONE (09:28)
--- NOTE | 2019-11-11 11:09 | ECGEPIP ---
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
--- NOTE | 2019-11-11 11:10 | ECGEPIP ---
[facility] - ED Test Date: 2019-10-07 Pat Name: MELANY LEE Department: Room: - Gender: Female Institutional Research Coordinator: LIBRA : 1985 Requested By: DONALDO Dickson Order Number: [id number] Reading MD: Seth Mari Measurements Intervals [place] Rate: 110 P: 46 CT: 144 QRS: 30 QRSD: 86 T: 19 QT: 325 QTc: 440 Interpretive Statements SINUS TACHYCARDIA NONSPECIFIC T-WAVE CHANGES SEE SCANNED DOWNTIME REPORT
[2019-11-22 10:24] LABS: BASO % 0.5 % (0.0-1.0); EOS # 0.1 10^3/uL (0.0-0.5); HEMATOCRIT 37.5 % (36.0-47.0); HEMOGLOBIN 12.3 g/dl (12.0-15.5); LYMPH # 1.7 10^3/uL (1.5-5.0); LYMPH % 21.9 % (24.0-44.0); MEAN CORPUSCULAR HEMOGLOBIN 30.1 pg (27.0-33.0); MEAN CORPUSCULAR HGB CONC 32.8 g/dl (32.0-36.5); MEAN CORPUSCULAR VOLUME 91.7 fl (80.0-96.0); MONO # 0.6 10^3/uL (0.0-0.8); MONO % 7.8 % (0.0-5.0); NEUTROPHILS # 5.5 10^3/uL (1.5-8.5); NEUTROPHILS % 68.5 % (36.0-66.0); PLATELET COUNT, AUTOMATED 301 10^3/uL (150-450); RED BLOOD COUNT 4.09 10^6/uL (4.00-5.40)
[2019-11-22 11:27] LABS: APPEARANCE, URINE CLOUDY (CLEAR); BACTERIA, URINE AUTO NEGATIVE (NEGATIVE); BILIRUBIN, URINE AUTO NEGATIVE (NEGATIVE); BLOOD, URINE BLOOD NEGATIVE (NEGATIVE); COLOR, URINE YELLOW (YELLOW); GLUCOSE, URINE (UA) AUTO NEGATIVE (NEGATIVE); KETONE, URINE AUTO 1+ mg/dL (NEGATIVE); LEUKOCYTE ESTERASE, URINE AUTO NEGATIVE (NEGATIVE); MUCUS, URINE SMALL (NEGATIVE); NITRITE, URINE AUTO NEGATIVE (NEGATIVE); PROTEIN, URINE AUTO NEGATIVE (NEGATIVE); RBC, URINE AUTO 2 /HPF (0-3); SPECIFIC GRAVITY URINE AUTO 1.026 (1.002-1.035); SQUAMOUS EPITHELIAL CELL UR AU 13 /HPF (0-6); UROBILINOGEN, URINE AUTO 0.2 mg/dL (0.0-2.0); WBC, URINE AUTO 1 /HPF (0-3)
[2019-12-26 08:26] LABS: ACETAMINOPHEN LEVEL 4.6 UG/ML (10.0-30.0); ALBUMIN 3.8 GM/DL (3.2-5.2); ALT/SGPT 34 U/L (12-78); BILIRUBIN,DIRECT 0.2 MG/DL (0.0-0.2); BILIRUBIN,TOTAL 0.5 MG/DL (0.2-1.0); BLOOD UREA NITROGEN 15 MG/DL (7-18); CALCIUM LEVEL 9.2 MG/DL (8.5-10.1); CARBON DIOXIDE LEVEL 29 MEQ/L (21-32); CHLORIDE LEVEL 104 MEQ/L (98-107); CK-MB VALUE MASS 3.2 NG/ML (<3.6); CPK CREATINE PHOSPHOKINASE 132 U/L (26-192); CREATININE FOR GFR 0.64 MG/DL (0.55-1.30); GLOMERULAR FILTRATION RATE > 60.0 (>60); GLUCOSE, FASTING 88 MG/DL (70-100); LIPASE 60 U/L (73-393); MB/CK RELATIVE INDEX 2.42 (< OR =4); POTASSIUM SERUM 4.1 MEQ/L (3.5-5.1); SALICYLATE LEVEL 3.5 MG/DL (5.0-30.0); SODIUM LEVEL 139 MEQ/L (136-145); TOTAL PROTEIN 7.3 GM/DL (6.4-8.2); TROPONIN I < 0.02 NG/ML (< 0.10)
[2019-12-26 10:23] LABS: AMPHETAMINES LEVEL URINE POSITIVE (NEGATIVE); BARBITURATES URINE NEGATIVE (NEGATIVE); BENZODIAZEPINES URINE NEGATIVE (NEGATIVE); CANNABINOIDS URINE POSITIVE (NEGATIVE); COCAINE METABOLITE URINE NEGATIVE (NEGATIVE); METHADONE URINE NEGATIVE (NEGATIVE); OPIATES URINE NEGATIVE (NEGATIVE); PHENCYCLIDINE URINE NEGATIVE (NEGATIVE)
[2019-12-26 10:25] LABS: CK-MB VALUE MASS 3.2 NG/ML (<3.6); CPK CREATINE PHOSPHOKINASE 113 U/L (26-192); MB/CK RELATIVE INDEX 2.83 (< OR =4); TROPONIN I < 0.02 NG/ML (< 0.10)
== END 2019-10-07 10:41 | disposition left against medical advice (07) ==
LOC: M ED 04:28
DX: R07.9 Chest pain, unspecified (principal); Z53.8 Procedure and treatment not carried out for other reasons; M79.81 Nontraumatic hematoma of soft tissue; L84 Corns and callosities; F41.9 Anxiety disorder, unspecified; F33.9 Major depressive disorder, recurrent, unspecified; F11.20 Opioid dependence, uncomplicated; F20.9 Schizophrenia, unspecified; F17.210 Nicotine dependence, cigarettes, uncomplicated; Z88.0 Allergy status to penicillin; Z88.1 Allergy status to other antibiotic agents; Z79.899 Other long term (current) drug therapy
CPT/HCPCS: 36415; 71046; 80048; 80076; 80307; 81001; 82550; 82553; 83690; 84703; 85025; 87086; 93005; 99283; G0480

== ENCOUNTER 2019-10-11 15:27 | Emergency (ER) | payer OTHER ==
[2019-11-24 10:55] LABS: APPEARANCE, URINE MANUAL CLEAR (CLEAR); BILIRUBIN, URINE MANUAL NEGATIVE (NEGATIVE); BLOOD URINE MANUAL NEGATIVE (NEGATIVE); COLOR, URINE MANUAL YELLOW (YELLOW); GLUCOSE, URINE (UA) MANUAL NEGATIVE (NEGATIVE); KETONE, URINE MANUAL NEGATIVE (NEGATIVE); LEUKOCYTE ESTERASE, URINE MAN NEGATIVE (NEGATIVE); NITRITE, URINE MANUAL NEGATIVE (NEGATIVE); PROTEIN, URINE MANUAL NEGATIVE (NEGATIVE); SPECIFIC GRAVITY,URINE MANUAL 1.005 (1.002-1.035); UROBILINOGEN, URINE MANUAL NORMAL (NORMAL)
[2019-11-26 19:57] LABS: BASO # 0.1 10^3/uL (0.0-0.2); BASO % 0.6 % (0.0-1.0); EOS # 0.2 10^3/uL (0.0-0.5); EOS % 1.9 % (0.0-3.0); ERYTHROCYTE SEDIMENTATION RATE 7 mm/hr (0-20); HEMOGLOBIN 14.3 g/dl (12.0-15.5); LYMPH # 2.5 10^3/uL (1.5-5.0); MEAN CORPUSCULAR HEMOGLOBIN 27.8 pg (27.0-33.0); MEAN CORPUSCULAR HGB CONC 33.3 g/dl (32.0-36.5); MEAN CORPUSCULAR VOLUME 83.7 fl (80.0-96.0); MONO # 0.7 10^3/uL (0.0-0.8); NEUTROPHILS # 6.6 10^3/uL (1.5-8.5); NEUTROPHILS % 65.3 % (36.0-66.0); PLATELET COUNT, AUTOMATED 284 10^3/uL (150-450); RED BLOOD COUNT 5.14 10^6/uL (4.00-5.40); WHITE BLOOD COUNT 10.2 10^3/uL (4.0-10.0)
== END 2019-10-12 18:00 | disposition home or self-care (01) ==
LOC: M ED 15:27
DX: J02.0 Streptococcal pharyngitis (principal); L73.9 Follicular disorder, unspecified; R30.0 Dysuria; F19.10 Other psychoactive substance abuse, uncomplicated; R56.9 Unspecified convulsions; F32.9 Major depressive disorder, single episode, unspecified; F90.9 Attention-deficit hyperactivity disorder, unspecified type; F20.9 Schizophrenia, unspecified; Z79.899 Other long term (current) drug therapy; Z88.0 Allergy status to penicillin

== ENCOUNTER → 2019-10-13 | Emergency (ER) | payer OTHER ==
[~2019-10-13] MED LIST changes: +AMIT100TA PO; +AMIT25TA PO; +BACIOIN7 TOP; +CELE10TA PO; +CELE20TA PO; +CITA20TA6 PO; +CLON0.5T2 PO; +GABA600T4 PO; +LORA-436 PO; +LORA-674 PO; +LORazepam 2 MG TAB As Ordered ONE; +LORazepam 2 MG/ML VIAL As Ordered ONE; +MED REC COMMENT; +NICO21PAT TD; +OMEP1CAP73 PO; +ONDANSETRON 4MG/2ML VIAL As Ordered ONE; +ONDANSETRON 4MG/2ML VIAL ONE; +OXCA150T21 PO; +OXCA300T14 PO; +RISP1TAB42 PO; +RISP2TAB3 PO; +RISP3TAB20 PO; +STRA18CA PO; +diphenhydrAMINE 25MG CAP As Ordered ONE
--- NOTE | 2019-11-11 15:45 | ECGEPIP ---
[facility] - ED Test Date: 2019-10-13 Pat Name: MELANY LEE Department: Room: - Gender: Female Market Specialist: JOSE G : 1985 Requested By: KARI Reis Order Number: [id number] Reading MD: Shirley Spears Measurements Intervals [place] Rate: 114 P: 56 AR: 148 QRS: 30 QRSD: 87 T: 6 QT: 360 QTc: 496 Interpretive Statements SINUS TACHYCARDIA NONSPECIFIC ST & T-WAVE ABNORMALITY ABNORMAL RHYTHM ECG INTERPRETATION BASED ON A DEFAULT AGE OF 42 YEARS BASELINE ARTIFACT LIMITS INTERPRETATION SEE SCANNED DOWNTIME REPORT
--- NOTE | 2019-11-12 15:22 | ECGEPIP ---
SINUS RHYTHM WITH SINUS ARRHYTHMIA NORMAL ECG NONSPECIFIC ST & T-WAVE ABNORMALITY SEE SCANNED DOWNTIME REPORT MTDD
[2019-11-26 16:18] LABS: BASO # 0.1 10^3/uL (0.0-0.2); BASO % 0.6 % (0.0-1.0); EOS # 0.2 10^3/uL (0.0-0.5); EOS % 1.9 % (0.0-3.0); HEMATOCRIT 40.7 % (36.0-47.0); HEMOGLOBIN 13.3 g/dl (12.0-15.5); LYMPH # 2.4 10^3/uL (1.5-5.0); LYMPH % 27.1 % (24.0-44.0); MEAN CORPUSCULAR HEMOGLOBIN 30.4 pg (27.0-33.0); MEAN CORPUSCULAR HGB CONC 32.7 g/dl (32.0-36.5); MEAN CORPUSCULAR VOLUME 93.1 fl (80.0-96.0); NEUTROPHILS # 5.2 10^3/uL (1.5-8.5); NEUTROPHILS % 59.1 % (36.0-66.0); PLATELET COUNT, AUTOMATED 288 10^3/uL (150-450); RED BLOOD COUNT 4.37 10^6/uL (4.00-5.40); WHITE BLOOD COUNT 8.7 10^3/uL (4.0-10.0)
[2019-11-26 17:13] LABS: INR 0.92; PARTIAL THROMBOPLASTIN TIME 25.6 SECONDS (24.2-38.5); PROTHROMBIN TIME 12.5 SECONDS (12.5-14.3)
[2020-01-04 16:16] LABS: ACETAMINOPHEN LEVEL < 2.0 UG/ML (10.0-30.0); ALBUMIN 4.5 GM/DL (3.2-5.2); ALT/SGPT 31 U/L (12-78); BILIRUBIN,DIRECT 0.2 MG/DL (0.0-0.2); BILIRUBIN,TOTAL 0.5 MG/DL (0.2-1.0); BLOOD UREA NITROGEN 9 MG/DL (7-18); CALCIUM LEVEL 9.7 MG/DL (8.5-10.1); CARBON DIOXIDE LEVEL 28 MEQ/L (21-32); CHLORIDE LEVEL 106 MEQ/L (98-107); CK-MB VALUE MASS 1.6 NG/ML (<3.6); CPK CREATINE PHOSPHOKINASE 196 U/L (26-192); CREATININE FOR GFR 0.88 MG/DL (0.55-1.30); ETHYL ALCOHOL (ETHANOL) < 0.003 % (0.000-0.010); FREE T4 1.21 NG/DL (0.76-1.46); GLOMERULAR FILTRATION RATE > 60.0 (>60); GLUCOSE, FASTING 90 MG/DL (70-100); LIPASE 49 U/L (73-393); MB/CK RELATIVE INDEX 0.82 (< OR =4); SALICYLATE LEVEL 3.4 MG/DL (5.0-30.0); SODIUM LEVEL 137 MEQ/L (136-145); THYROID STIMULATING HORMONE 0.338 uIU/ML (0.358-3.740); TOTAL PROTEIN 8.2 GM/DL (6.4-8.2); TROPONIN I < 0.02 NG/ML (< 0.10)
[2020-01-04 16:31] LABS: HCG, SERUM QUALITATIVE NEGATIVE (NEGATIVE)
== END | disposition left against medical advice (07) ==
LOC: M ED 19:00
DX: R11.10 Vomiting, unspecified (principal); Z53.21 Procedure and treatment not carried out due to patient leaving prior to being seen by health care provider; F17.200 Nicotine dependence, unspecified, uncomplicated
CPT/HCPCS: 36415; 70450; 71046; 80048; 80076; 80307; 81001; 82550; 82553; 83690; 84439; 84443; 84703; 85025; 85610; 85730; 93005; 96374; 96375; 99284; G0480; J2405

== ENCOUNTER 2019-10-14 22:09 | Emergency (ER) | payer OTHER ==
[~2019-10-14] VITALS: Ht 154.9 cm; Wt 60.0 kg
[~2019-10-14 22:09] MED LIST changes: -AMIT100TA PO; -AMIT25TA PO; -BACIOIN7 TOP; -CELE10TA PO; -CELE20TA PO; -CITA20TA6 PO; -CLON0.5T2 PO; -GABA600T4 PO; -LORA-436 PO; -LORA-674 PO; -LORazepam 2 MG TAB As Ordered ONE; -LORazepam 2 MG/ML VIAL As Ordered ONE; -MED REC COMMENT; -NICO21PAT TD; -OMEP1CAP73 PO; -ONDANSETRON 4MG/2ML VIAL As Ordered ONE; -ONDANSETRON 4MG/2ML VIAL ONE; -OXCA150T21 PO; -OXCA300T14 PO; -RISP1TAB42 PO; -RISP2TAB3 PO; -RISP3TAB20 PO; -STRA18CA PO; -diphenhydrAMINE 25MG CAP As Ordered ONE
[2019-10-14 22:55] VITALS: BP 110/79
[2019-10-14] MEDS ORDERED: LORazepam 2 MG TAB PO STA (23:06)
[2019-10-14 23:13] LABS: HEMATOCRIT 41.5 % (36.0-47.0); HEMOGLOBIN 13.3 g/dl (12.0-15.5); MEAN CORPUSCULAR VOLUME 93.5 fl (80.0-96.0); PLATELET COUNT, AUTOMATED 205 10^3/uL (150-450); RED BLOOD COUNT 4.44 10^6/uL (4.00-5.40); WHITE BLOOD COUNT 5.7 10^3/uL (4.0-10.0)
[2019-10-14] MEDS ORDERED: diphenhydrAMINE 25MG CAP PO ONE ×2 (23:15)
[2019-10-14] MEDS ORDERED: LORazepam 2 MG TAB PO ONE (23:15)
[2019-10-14 23:46] LABS: HCG, SERUM QUALITATIVE NEGATIVE (NEGATIVE)
[2019-10-15 00:01] LABS: ACETAMINOPHEN LEVEL < 2.0 UG/ML (10.0-30.0); ALBUMIN 3.9 GM/DL (3.2-5.2); ALT/SGPT 25 U/L (12-78); BILIRUBIN,DIRECT 0.2 MG/DL (0.0-0.2); BILIRUBIN,TOTAL 0.5 MG/DL (0.2-1.0); BLOOD UREA NITROGEN 12 MG/DL (7-18); CALCIUM LEVEL 9.3 MG/DL (8.5-10.1); CARBON DIOXIDE LEVEL 25 MEQ/L (21-32); CHLORIDE LEVEL 109 MEQ/L (98-107); CREATININE FOR GFR 0.69 MG/DL (0.55-1.30); ETHYL ALCOHOL (ETHANOL) < 0.003 % (0.000-0.010); GLOMERULAR FILTRATION RATE > 60.0 (>60); GLUCOSE, FASTING 83 MG/DL (70-100); POTASSIUM SERUM 4.3 MEQ/L (3.5-5.1); SALICYLATE LEVEL 2.6 MG/DL (5.0-30.0); SODIUM LEVEL 141 MEQ/L (136-145); THYROID STIMULATING HORMONE 0.302 uIU/ML (0.358-3.740); TOTAL PROTEIN 7.4 GM/DL (6.4-8.2)
[2019-10-15 00:25] LABS: AMPHETAMINES LEVEL URINE POSITIVE (NEGATIVE); BARBITURATES URINE NEGATIVE (NEGATIVE); BENZODIAZEPINES URINE POSITIVE (NEGATIVE); CANNABINOIDS URINE POSITIVE (NEGATIVE); COCAINE METABOLITE URINE NEGATIVE (NEGATIVE); METHADONE URINE NEGATIVE (NEGATIVE); OPIATES URINE NEGATIVE (NEGATIVE); PHENCYCLIDINE URINE NEGATIVE (NEGATIVE)
[2019-10-15 01:39] LABS: FREE T4 1.33 NG/DL (0.76-1.46)
--- NOTE | 2019-11-12 09:37 | ECGEPIP ---
[facility] - ED Test Date: 2019-10-14 Pat Name: MELANY LEE Department: Room: - Gender: Female Mail Sorter: TISH : 1985 Requested By: CALEB Sin Order Number: [id number] Reading MD: Shirley Spears Measurements Intervals [place] Rate: 96 P: 57 AR: 151 QRS: 50 QRSD: 80 T: 37 QT: 338 QTc: 428 Interpretive Statements SINUS RHYTHM NONSPECIFIC T-WAVE ABNORMALITY BORDERLINE ECG SEE SCANNED DOWNTIME REPORT
== END 2019-10-15 01:55 | disposition home or self-care (01) ==
LOC: M ED 22:09
DX: F43.0 Acute stress reaction (principal); F20.9 Schizophrenia, unspecified
CPT/HCPCS: 80048; 80076; 80307; 84439; 84443; 84703; 85027; 93005; 99284; G0480

== ENCOUNTER 2019-10-18 00:55 | Emergency (ER) | payer OTHER ==
[~2019-10-18] VITALS: Ht 152.4 cm; Wt 71.2 kg
[2019-10-18 00:55] VITALS: BP 119/79
== END 2019-10-18 02:03 | disposition left against medical advice (07) ==
LOC: M ED 00:55
DX: Z53.21 Procedure and treatment not carried out due to patient leaving prior to being seen by health care provider (principal)

== ENCOUNTER 2019-10-30 09:22 | Emergency (ER) | payer OTHER ==
[~2019-10-30] VITALS: Ht 152.4 cm; Wt 72.0 kg
[2019-10-30 10:54] LABS: BASO % 0.9 % (0.0-1.0); EOS # 0.1 10^3/uL (0.0-0.5); HEMATOCRIT 37.6 % (36.0-47.0); HEMOGLOBIN 11.8 g/dl (12.0-15.5); LYMPH # 1.4 10^3/uL (1.5-5.0); LYMPH % 31.5 % (24.0-44.0); MEAN CORPUSCULAR HEMOGLOBIN 29.9 pg (27.0-33.0); MEAN CORPUSCULAR HGB CONC 31.4 g/dl (32.0-36.5); MEAN CORPUSCULAR VOLUME 95.4 fl (80.0-96.0); MONO # 0.5 10^3/uL (0.0-0.8); MONO % 10.5 % (0.0-5.0); NEUTROPHILS # 2.5 10^3/uL (1.5-8.5); NEUTROPHILS % 54.9 % (36.0-66.0); PLATELET COUNT, AUTOMATED 209 10^3/uL (150-450); RED BLOOD COUNT 3.94 10^6/uL (4.00-5.40); WHITE BLOOD COUNT 4.5 10^3/uL (4.0-10.0)
[2019-10-30 10:59] LABS: HCG, SERUM QUALITATIVE NEGATIVE (NEGATIVE)
[2019-10-30 11:16] LABS: ACETAMINOPHEN LEVEL < 2.0 UG/ML (10.0-30.0); ALT/SGPT 38 U/L (12-78); BILIRUBIN,DIRECT < 0.1 MG/DL (0.0-0.2); BILIRUBIN,TOTAL 0.2 MG/DL (0.2-1.0); BLOOD UREA NITROGEN 11 MG/DL (7-18); CALCIUM LEVEL 8.9 MG/DL (8.5-10.1); CARBON DIOXIDE LEVEL 25 MEQ/L (21-32); CHLORIDE LEVEL 107 MEQ/L (98-107); CREATININE FOR GFR 0.79 MG/DL (0.55-1.30); ETHYL ALCOHOL (ETHANOL) < 0.003 % (0.000-0.010); GLOMERULAR FILTRATION RATE > 60.0 (>60); GLUCOSE, FASTING 132 MG/DL (70-100); SALICYLATE LEVEL 2.7 MG/DL (5.0-30.0); SODIUM LEVEL 140 MEQ/L (136-145); THYROID STIMULATING HORMONE 0.526 uIU/ML (0.358-3.740); TOTAL PROTEIN 7.3 GM/DL (6.4-8.2)
[2019-10-30 11:26] LABS: AMPHETAMINES LEVEL URINE POSITIVE (NEGATIVE); BARBITURATES URINE NEGATIVE (NEGATIVE); BENZODIAZEPINES URINE NEGATIVE (NEGATIVE); CANNABINOIDS URINE NEGATIVE (NEGATIVE); COCAINE METABOLITE URINE NEGATIVE (NEGATIVE); METHADONE URINE NEGATIVE (NEGATIVE); OPIATES URINE NEGATIVE (NEGATIVE); PHENCYCLIDINE URINE NEGATIVE (NEGATIVE)
[2019-10-30] MEDS ORDERED: SUCR1TA PO (12:27)
[2019-10-30 12:38] VITALS: BP 111/60
[2019-10-30] MEDS ORDERED: PRED20TA PO (20:47)
[2019-10-30] MEDS ORDERED: LORA-674 PO (20:48)
== END 2019-10-30 12:49 | disposition home or self-care (01) ==
LOC: M ED 09:22
DX: F41.1 Generalized anxiety disorder (principal); F15.10 Other stimulant abuse, uncomplicated; F20.9 Schizophrenia, unspecified; F33.9 Major depressive disorder, recurrent, unspecified; F90.9 Attention-deficit hyperactivity disorder, unspecified type; F17.200 Nicotine dependence, unspecified, uncomplicated; Z79.899 Other long term (current) drug therapy; Z88.0 Allergy status to penicillin; Z88.8 Allergy status to other drugs, medicaments and biological substances; Z88.2 Allergy status to sulfonamides; Z88.1 Allergy status to other antibiotic agents
CPT/HCPCS: 36415; 80048; 80076; 80307; 81001; 84443; 84703; 85025; 99283; G0480

== ENCOUNTER 2019-10-30 19:00 | Emergency (ER) | payer OTHER ==
[~2019-10-30] VITALS: Ht 152.4 cm; Wt 72.0 kg
[2019-10-30] MEDS ORDERED: PRED20TA PO (20:47)
[2019-10-30] MEDS ORDERED: LORA-674 PO (20:48)
[2019-10-30 21:05] VITALS: BP 126/66
== END 2019-10-30 21:06 | disposition home or self-care (01) ==
LOC: M ED 19:00
DX: L53.9 Erythematous condition, unspecified (principal); T78.40XA Allergy, unspecified, initial encounter; Z79.899 Other long term (current) drug therapy; Z88.0 Allergy status to penicillin; Z88.8 Allergy status to other drugs, medicaments and biological substances; Z88.2 Allergy status to sulfonamides; Z88.1 Allergy status to other antibiotic agents; Z86.19 Personal history of other infectious and parasitic diseases; Z86.69 Personal history of other diseases of the nervous system and sense organs

== ENCOUNTER 2019-10-31 05:59 | Emergency (ER) | payer OTHER ==
[~2019-10-31] VITALS: Ht 152.4 cm; Wt 73.0 kg
[~2019-10-31 05:59] MED LIST changes: +LORA-674 PO
[2019-10-31] MEDS ORDERED: predniSONE 20 MG TAB PO ONE (07:15)
[2019-10-31 07:34] VITALS: BP 136/73
== END 2019-10-31 07:37 | disposition home or self-care (01) ==
LOC: M ED 05:59
DX: F41.9 Anxiety disorder, unspecified (principal); T37.0X5A Adverse effect of sulfonamides, initial encounter; E03.9 Hypothyroidism, unspecified; F33.9 Major depressive disorder, recurrent, unspecified; F19.11 Other psychoactive substance abuse, in remission; F17.200 Nicotine dependence, unspecified, uncomplicated; Z79.899 Other long term (current) drug therapy; Z79.2 Long term (current) use of antibiotics; Z79.52 Long term (current) use of systemic steroids; Z86.19 Personal history of other infectious and parasitic diseases; Z86.69 Personal history of other diseases of the nervous system and sense organs; Z88.2 Allergy status to sulfonamides; Z88.1 Allergy status to other antibiotic agents; Z88.0 Allergy status to penicillin

== ENCOUNTER 2019-10-31 14:10 | Emergency (ER) | payer OTHER ==
[~2019-10-31] VITALS: Ht 152.4 cm; Wt 71.4 kg
[2019-10-31 14:21] VITALS: BP 136/87
== END 2019-10-31 16:06 | disposition left against medical advice (07) ==
LOC: M ED 14:10
DX: J02.9 Acute pharyngitis, unspecified (principal); R20.8 Other disturbances of skin sensation; B19.20 Unspecified viral hepatitis C without hepatic coma; F19.10 Other psychoactive substance abuse, uncomplicated; Z79.899 Other long term (current) drug therapy

== ENCOUNTER 2019-11-01 15:13 | Emergency (ER) | payer OTHER ==
[~2019-11-01] VITALS: Ht 152.4 cm; Wt 72.7 kg
[2019-11-01 15:14] VITALS: BP 148/93
== END 2019-11-01 16:09 | disposition home or self-care (01) ==
LOC: M ED 15:13
DX: M77.9 Enthesopathy, unspecified (principal); M25.571 Pain in right ankle and joints of right foot; M25.572 Pain in left ankle and joints of left foot; F17.200 Nicotine dependence, unspecified, uncomplicated; F19.10 Other psychoactive substance abuse, uncomplicated; Z79.899 Other long term (current) drug therapy

== ENCOUNTER 2019-11-02 23:19 | Emergency (ER) | payer OTHER ==
[~2019-11-02] VITALS: Ht 152.4 cm; Wt 70.0 kg
[2019-11-02 23:19] VITALS: BP 156/92
[2019-11-03 01:18] LABS: BASO % 0.3 % (0.0-1.0); HEMATOCRIT 35.9 % (36.0-47.0); HEMOGLOBIN 11.8 g/dl (12.0-15.5); LYMPH # 1.2 10^3/uL (1.5-5.0); LYMPH % 11.6 % (24.0-44.0); MEAN CORPUSCULAR HEMOGLOBIN 30.4 pg (27.0-33.0); MEAN CORPUSCULAR HGB CONC 32.9 g/dl (32.0-36.5); MEAN CORPUSCULAR VOLUME 92.5 fl (80.0-96.0); MONO # 0.8 10^3/uL (0.0-0.8); MONO % 8.3 % (0.0-5.0); NEUTROPHILS # 7.8 10^3/uL (1.5-8.5); NEUTROPHILS % 78.1 % (36.0-66.0); PLATELET COUNT, AUTOMATED 313 10^3/uL (150-450); RED BLOOD COUNT 3.88 10^6/uL (4.00-5.40)
[2019-11-03 01:31] LABS: INR 0.95; PROTHROMBIN TIME 12.9 SECONDS (11.8-14.0)
[2019-11-03 01:32] LABS: PARTIAL THROMBOPLASTIN TIME 27.1 SECONDS (25.0-38.4)
== END 2019-11-03 02:08 | disposition home or self-care (01) ==
LOC: M ED 23:19
DX: G93.9 Disorder of brain, unspecified (principal); F15.10 Other stimulant abuse, uncomplicated; T14.8XXA Other injury of unspecified body region, initial encounter; T80.89XA Other complications following infusion, transfusion and therapeutic injection, initial encounter; X58.XXXA Exposure to other specified factors, initial encounter; Y92.89 Other specified places as the place of occurrence of the external cause; F17.200 Nicotine dependence, unspecified, uncomplicated; Z79.899 Other long term (current) drug therapy

== ENCOUNTER 2019-11-04 15:59 | Emergency (ER) | payer OTHER ==
[2019-11-04] MEDS ORDERED: LORazepam 2 MG/ML VIAL IM STA (16:36)
[2019-11-04] MEDS ORDERED: LORazepam 2 MG/ML VIAL As Ordered ONE (16:40)
[2019-11-04 16:57] VITALS: BP 138/81
[2019-11-04 17:31] LABS: AMPHETAMINES LEVEL URINE POSITIVE (NEGATIVE); BARBITURATES URINE NEGATIVE (NEGATIVE); BENZODIAZEPINES URINE NEGATIVE (NEGATIVE); CANNABINOIDS URINE NEGATIVE (NEGATIVE); COCAINE METABOLITE URINE NEGATIVE (NEGATIVE); METHADONE URINE NEGATIVE (NEGATIVE); OPIATES URINE POSITIVE (NEGATIVE); PHENCYCLIDINE URINE NEGATIVE (NEGATIVE)
--- NOTE | 2019-11-04 17:45 | REPVR ---
PROCEDURE INFORMATION: Exam: XR Chest, 1 View Exam date and time: 11/04/2019 4:36 PM Age: 34 years old Clinical indication: Other: altered mental status; Additional info: Altered mental status TECHNIQUE: Imaging protocol: XR of the chest Views: Frontal portable sitting upright view of the chest. COMPARISON: CR Abdomen,Flat Upright,PA CHEST 09/17/2019 6:42 PM FINDINGS: Tubes, catheters and devices: EKG leads are present overlying the chest. Lungs: The lungs are clear bilaterally. The pulmonary vasculature is normal. Pleural space: No pleural effusion. No pneumothorax. Heart/Mediastinum: The heart is normal in size and contour. Mediastinum: Stable. Bones/joints: Stable. IMPRESSION: No acute cardiopulmonary abnormality identified. Electronically signed by: Lincoln Dickerson On 11/04/2019 17:44:45 PM
[2019-11-04 17:56] LABS: ACETAMINOPHEN LEVEL < 2.0 UG/ML (10.0-30.0); ALT/SGPT 37 U/L (12-78); BILIRUBIN,DIRECT < 0.1 MG/DL (0.0-0.2); BILIRUBIN,TOTAL 0.3 MG/DL (0.2-1.0); BLOOD UREA NITROGEN 10 MG/DL (7-18); CARBON DIOXIDE LEVEL 28 MEQ/L (21-32); CHLORIDE LEVEL 104 MEQ/L (98-107); CREATININE FOR GFR 0.84 MG/DL (0.55-1.30); ETHYL ALCOHOL (ETHANOL) < 0.003 % (0.000-0.010); GLOMERULAR FILTRATION RATE > 60.0 (>60); GLUCOSE, FASTING 87 MG/DL (70-100); SALICYLATE LEVEL 2.7 MG/DL (5.0-30.0); SODIUM LEVEL 139 MEQ/L (136-145); THYROID STIMULATING HORMONE 0.506 uIU/ML (0.358-3.740); TOTAL PROTEIN 7.2 GM/DL (6.4-8.2)
[2019-11-04 18:18] LABS: HEMATOCRIT 35.7 % (36.0-47.0); HEMOGLOBIN 11.8 g/dl (12.0-15.5); MEAN CORPUSCULAR HEMOGLOBIN 30.9 pg (27.0-33.0); MEAN CORPUSCULAR HGB CONC 33.1 g/dl (32.0-36.5); MEAN CORPUSCULAR VOLUME 93.5 fl (80.0-96.0); PLATELET COUNT, AUTOMATED 364 10^3/uL (150-450); RED BLOOD COUNT 3.82 10^6/uL (4.00-5.40)
[2019-11-04 18:20] LABS: WHITE BLOOD COUNT 13.6 10^3/uL (4.0-10.0)
[2019-11-04 18:22] LABS: URINE PREG TEST NEGATIVE (NEGATIVE)
[2019-11-04 18:52] LABS: LYMPHOCYTES 55 % (16-44); MONOCYTES 8 % (0-5); NEUTROPHILS 37 % (28-66)
[2019-11-04 18:53] LABS: PLATELET ESTIMATE NORMAL (NORMAL)
--- NOTE | 2019-11-08 15:05 | ECGEPIP ---
[facility] - ED Test Date: 2019-11-04 Pat Name: MELANY LEE Department: Room: - Gender: Female Manager Oracle: USHA : 1985 Requested By: KARI Reis Order Number: [id number] Reading MD: Shirley Spears Measurements Intervals [place] Rate: 106 P: 60 PA: 136 QRS: 50 QRSD: 86 T: 39 QT: 319 QTc: 425 Interpretive Statements SINUS TACHYCARDIA POSSIBLE LEFT ATRIAL ENLARGEMENT ABNORMAL RHYTHM ECG SEE DOWNTIME REPORT
== END 2019-11-04 18:58 | disposition home or self-care (01) ==
LOC: M ED 15:59 → EDBD 15:59 → M ED 18:58
DX: R23.3 Spontaneous ecchymoses (principal); R00.0 Tachycardia, unspecified; F15.10 Other stimulant abuse, uncomplicated; F43.10 Post-traumatic stress disorder, unspecified; B18.2 Chronic viral hepatitis C; Z88.0 Allergy status to penicillin; Z88.8 Allergy status to other drugs, medicaments and biological substances
CPT/HCPCS: 71045; 80048; 80076; 80307; 81001; 84443; 84703; 85025; 93005; 93041; 94760; 96372; 99284; G0480; J2060

== ENCOUNTER 2019-11-09 21:04 | Emergency (ER) | payer OTHER ==
[~2019-11-09] VITALS: Ht 152.4 cm; Wt 71.4 kg
[2019-11-09 21:29] LABS: HEMATOCRIT 33.6 % (36.0-47.0); MEAN CORPUSCULAR HEMOGLOBIN 30.6 pg (27.0-33.0); MEAN CORPUSCULAR HGB CONC 32.7 g/dl (32.0-36.5); MEAN CORPUSCULAR VOLUME 93.3 fl (80.0-96.0); PLATELET COUNT, AUTOMATED 272 10^3/uL (150-450); WHITE BLOOD COUNT 8.3 10^3/uL (4.0-10.0)
[2019-11-09 22:04] LABS: HCG, SERUM QUALITATIVE NEGATIVE (NEGATIVE)
[2019-11-09 22:06] LABS: ALBUMIN 3.9 GM/DL (3.2-5.2); ALT/SGPT 96 U/L (12-78); BILIRUBIN,DIRECT 0.1 MG/DL (0.0-0.2); BILIRUBIN,TOTAL 0.4 MG/DL (0.2-1.0); BLOOD UREA NITROGEN 16 MG/DL (7-18); CALCIUM LEVEL 9.6 MG/DL (8.5-10.1); CARBON DIOXIDE LEVEL 26 MEQ/L (21-32); CHLORIDE LEVEL 104 MEQ/L (98-107); CREATININE FOR GFR 0.98 MG/DL (0.55-1.30); ETHYL ALCOHOL (ETHANOL) < 0.003 % (0.000-0.010); GLOMERULAR FILTRATION RATE > 60.0 (>60); GLUCOSE, FASTING 101 MG/DL (70-100); POTASSIUM SERUM 4.2 MEQ/L (3.5-5.1); SALICYLATE LEVEL 3.2 MG/DL (5.0-30.0); SODIUM LEVEL 140 MEQ/L (136-145); THYROID STIMULATING HORMONE 0.354 uIU/ML (0.358-3.740); TOTAL PROTEIN 7.4 GM/DL (6.4-8.2)
[2019-11-09 22:43] LABS: AMPHETAMINES LEVEL URINE POSITIVE (NEGATIVE); BARBITURATES URINE NEGATIVE (NEGATIVE); BENZODIAZEPINES URINE NEGATIVE (NEGATIVE); CANNABINOIDS URINE NEGATIVE (NEGATIVE); COCAINE METABOLITE URINE NEGATIVE (NEGATIVE); METHADONE URINE NEGATIVE (NEGATIVE); OPIATES URINE POSITIVE (NEGATIVE); PHENCYCLIDINE URINE NEGATIVE (NEGATIVE)
[2019-11-10 00:03] VITALS: BP 148/86
[2019-11-10] MEDS ORDERED: CELE20TA PO (12:02)
[2019-11-10] MEDS ORDERED: LORA-436 PO (12:02)
[2019-11-10] MEDS ORDERED: SUCR1TA PO (12:02)
[2019-11-10] MEDS ORDERED: GABA-845 PO (12:02)
[2019-11-10] MEDS ORDERED: AMIT75TA PO (12:02)
[2019-11-10] MEDS ORDERED: OMEP1CAP73 PO (12:02)
[2019-11-10] MEDS ORDERED: SUBO8MIS SL (12:02)
[2019-11-10] MEDS ORDERED: RISP2TAB3 PO ×2 (12:02)
[2019-11-10] MEDS ORDERED: STRA18CA PO (12:04)
[2019-11-10] MEDS ORDERED: OXCA150T21 PO (12:04)
[2019-11-10] MEDS ORDERED: MED REC COMMENT (12:05)
== END 2019-11-10 02:14 | disposition home or self-care (01) ==
LOC: M ED 21:04
DX: F43.0 Acute stress reaction (principal); F41.9 Anxiety disorder, unspecified; F32.9 Major depressive disorder, single episode, unspecified; B19.20 Unspecified viral hepatitis C without hepatic coma; R56.9 Unspecified convulsions; F19.90 Other psychoactive substance use, unspecified, uncomplicated; Z87.440 Personal history of urinary (tract) infections; Z79.899 Other long term (current) drug therapy
CPT/HCPCS: 36415; 80048; 80076; 80307; 84443; 84703; 85027; 99284; G0480

== ENCOUNTER 2019-11-10 10:23 | Inpatient (IN) | payer OTHER ==
[2019-11-10] MEDS ORDERED: NS 1,000 ML IV ONE (10:45)
[2019-11-10 11:02] LABS: VENOUS BASE EXCESS 1.1 (-2.0-2.0); VENOUS HCO3 26.4 MEQ/L (23.0-27.0); VENOUS O2 SATURATION 97.6 % (60.0-80.0); VENOUS PARTIAL PRESSURE CO2 44.9 mmHg (38.0-50.0); VENOUS PARTIAL PRESSURE O2 107.7 mmHg (30.0-50.0); VENOUS PH 7.388 UNITS (7.330-7.430); VENOUS STANDARD HCO3 25.5 MEQ/L; VENOUS TOTAL CO2 27.8 MEQ/L (24.0-28.0)
[2019-11-10 11:07] LABS: BASO % 0.1 % (0.0-1.0); EOS # 0.1 10^3/uL (0.0-0.5); EOS % 0.9 % (0.0-3.0); HEMATOCRIT 32.1 % (36.0-47.0); HEMOGLOBIN 10.6 g/dl (12.0-15.5); LYMPH # 2.7 10^3/uL (1.5-5.0); LYMPH % 33.5 % (24.0-44.0); MEAN CORPUSCULAR HEMOGLOBIN 30.5 pg (27.0-33.0); MEAN CORPUSCULAR VOLUME 92.5 fl (80.0-96.0); MONO # 0.9 10^3/uL (0.0-0.8); MONO % 11.8 % (0.0-5.0); NEUTROPHILS # 4.3 10^3/uL (1.5-8.5); NEUTROPHILS % 53.1 % (36.0-66.0); PLATELET COUNT, AUTOMATED 254 10^3/uL (150-450); RED BLOOD COUNT 3.47 10^6/uL (4.00-5.40)
[2019-11-10 11:45] LABS: HCG, SERUM QUALITATIVE NEGATIVE (NEGATIVE)
[2019-11-10 11:55] LABS: ACETAMINOPHEN LEVEL < 2.0 UG/ML (10.0-30.0); ALBUMIN 3.7 GM/DL (3.2-5.2); ALT/SGPT 91 U/L (12-78); BILIRUBIN,DIRECT 0.1 MG/DL (0.0-0.2); BILIRUBIN,TOTAL 0.5 MG/DL (0.2-1.0); BLOOD UREA NITROGEN 15 MG/DL (7-18); CALCIUM LEVEL 9.2 MG/DL (8.5-10.1); CARBON DIOXIDE LEVEL 29 MEQ/L (21-32); CHLORIDE LEVEL 104 MEQ/L (98-107); CPK CREATINE PHOSPHOKINASE 2261 U/L (26-192); ETHYL ALCOHOL (ETHANOL) < 0.003 % (0.000-0.010); GLOMERULAR FILTRATION RATE > 60.0 (>60); GLUCOSE, FASTING 106 MG/DL (70-100); MAGNESIUM LEVEL 1.9 MG/DL (1.8-2.4); POTASSIUM SERUM 2.9 MEQ/L (3.5-5.1); SALICYLATE LEVEL 3.3 MG/DL (5.0-30.0); SODIUM LEVEL 141 MEQ/L (136-145); THYROID STIMULATING HORMONE 0.313 uIU/ML (0.358-3.740); TOTAL PROTEIN 6.7 GM/DL (6.4-8.2); TROPONIN I < 0.02 NG/ML (< 0.10)
[2019-11-10] MEDS ORDERED: LORA-436 PO (12:02)
[2019-11-10] MEDS ORDERED: SUBO8MIS SL (12:02)
[2019-11-10] MEDS ORDERED: GABA-845 PO (12:02)
[2019-11-10] MEDS ORDERED: AMIT75TA PO (12:02)
[2019-11-10] MEDS ORDERED: CELE20TA PO (12:02)
[2019-11-10] MEDS ORDERED: OMEP1CAP73 PO (12:02)
[2019-11-10] MEDS ORDERED: SUCR1TA PO (12:02)
[2019-11-10] MEDS ORDERED: RISP2TAB3 PO ×2 (12:02)
[2019-11-10] MEDS ORDERED: STRA18CA PO (12:04)
[2019-11-10] MEDS ORDERED: OXCA150T21 PO (12:04)
[2019-11-10] MEDS ORDERED: MED REC COMMENT (12:05)
[2019-11-10] MEDS ORDERED: NS 1,000 ML IV SCH (12:15)
[2019-11-10] MEDS ORDERED: KCL 10MEQ/100ML SWI (KRUN) 10 MEQ in IV 1 EA IV ONE (12:15)
--- NOTE | 2019-11-10 12:17 | REPVR ---
PROCEDURE INFORMATION: Exam: CT Head Without Contrast Exam date and time: 11/10/2019 12:06 PM Age: 34 years old Clinical indication: Injury or trauma; Fall; Initial encounter; Blunt trauma (contusions or hematomas) TECHNIQUE: Imaging protocol: Computed tomography of the head without contrast. Radiation optimization: All CT scans at this facility use at least one of these dose optimization techniques: automated exposure control; mA and/or kV adjustment per patient size (includes targeted exams where dose is matched to clinical indication); or iterative reconstruction. COMPARISON: CT Head without contrast 03/09/2014 6:11 PM FINDINGS: Brain: Normal. No hemorrhage. Unremarkable white matter. No mass effect. Ventricles: No ventriculomegaly. Bones/joints: Unremarkable. No acute fracture. Paranasal sinuses: Visualized sinuses are unremarkable. No fluid levels. Mastoid air cells: Visualized mastoid air cells are well aerated. Soft tissues: Unremarkable. IMPRESSION: No acute intracranial abnormality. Electronically signed by: Micaela Malcolm On 11/10/2019 12:17:44 PM
--- NOTE | 2019-11-10 12:41 | REPVR ---
PROCEDURE INFORMATION: Exam: CT Cervical Spine Without Contrast Exam date and time: 11/10/2019 12:06 PM Age: 34 years old Clinical indication: Injury or trauma; Fall; Initial encounter; Blunt trauma TECHNIQUE: Imaging protocol: Computed tomography images of the cervical spine without contrast. Radiation optimization: All CT scans at this facility use at least one of these dose optimization techniques: automated exposure control; mA and/or kV adjustment per patient size (includes targeted exams where dose is matched to clinical indication); or iterative reconstruction. COMPARISON: SR CT Neck with contrast 06/19/2019 4:03 PM FINDINGS: Vertebrae: There is mild reversal of the normal cervical lordosis, possibly reflecting positioning or muscle spasm. No acute fracture. Normal alignment. Discs/Spinal canal/Neural foramina: No significant disc protrusion. No severe spinal canal stenosis. No significant neural foraminal narrowing. Soft tissues: Unremarkable. Lungs: Lung apices are normal. IMPRESSION: No acute fracture or listhesis. Electronically signed by: Micaela Malcolm On 11/10/2019 12:19:24 PM
[2019-11-10 12:58] LABS: OSMOLALITY SERUM 286 MOSM/KG (275-295)
[2019-11-10] MEDS ORDERED: SUMAtriptan SUCCINATE 25 MG TAB PO PRN (13:15)
[2019-11-10] MEDS: NS 1,000 ML IV SCH (14:22)
[2019-11-10] MEDS: KCL 10MEQ/100ML SWI (KRUN) 10 MEQ in IV 1 EA IV SCH ×3 (14:42→22:21)
[2019-11-10] MEDS: HEPARIN SOD (PORCINE) 5000UNITS/ML 1ML VIAL/SYRINGE SC SCH ×2 (14:42→22:21)
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
[2019-11-10] MEDS: GABAPENTIN 400 MG CAP PO SCH ×2 (16:00→21:00)
[2019-11-10] MEDS: SUCRALFATE 1 GM TAB PO SCH ×2 (17:30→21:00)
[2019-11-10 18:30] VITALS: BP 135/64
[2019-11-10] MEDS ORDERED: POTASSIUM CHLORIDE 10 MEQ SR TABLET PO ONE (22:15)
[2019-11-11] VITALS (7 sets, daily range): BP systolic 114–135; BP diastolic 54–76
[2019-11-11] MEDS: KCL 10MEQ/100ML SWI (KRUN) 10 MEQ in IV 1 EA IV SCH (00:02)
[2019-11-11] MEDS: NS 1,000 ML IV SCH ×2 (03:15→11:25)
[2019-11-11] MEDS: HEPARIN SOD (PORCINE) 5000UNITS/ML 1ML VIAL/SYRINGE SC SCH ×3 (05:36→22:38)
[2019-11-11 06:36] LABS: HEMATOCRIT 30.7 % (36.0-47.0); MEAN CORPUSCULAR HGB CONC 32.6 g/dl (32.0-36.5); PLATELET COUNT, AUTOMATED 224 10^3/uL (150-450); RED BLOOD COUNT 3.23 10^6/uL (4.00-5.40); WHITE BLOOD COUNT 5.5 10^3/uL (4.0-10.0)
[2019-11-11 07:03] LABS: ALBUMIN 2.7 GM/DL (3.2-5.2); ALT/SGPT 61 U/L (12-78); BILIRUBIN,TOTAL 0.3 MG/DL (0.2-1.0); BLOOD UREA NITROGEN 8 MG/DL (7-18); CALCIUM LEVEL 7.9 MG/DL (8.5-10.1); CARBON DIOXIDE LEVEL 23 MEQ/L (21-32); CHLORIDE LEVEL 113 MEQ/L (98-107); CPK CREATINE PHOSPHOKINASE 526 U/L (26-192); GLOMERULAR FILTRATION RATE > 60.0 (>60); GLUCOSE, FASTING 58 MG/DL (70-100); MAGNESIUM LEVEL 1.9 MG/DL (1.8-2.4); POTASSIUM SERUM 3.9 MEQ/L (3.5-5.1); SODIUM LEVEL 144 MEQ/L (136-145); TOTAL PROTEIN 5.3 GM/DL (6.4-8.2)
[2019-11-11] MEDS: SUCRALFATE 1 GM TAB PO SCH ×4 (07:30→19:57)
[2019-11-11] MEDS ORDERED: BUPRENORPHINE/NALOXONE 8-2MG SUBLINGUAL TABLET(SUBOXONE) SL SCH (09:00)
[2019-11-11] MEDS: GABAPENTIN 400 MG CAP PO SCH ×2 (09:00→16:38)
[2019-11-11] MEDS: OMEPRAZOLE 20 MG CAP PO SCH ×2 (09:00→12:35)
--- NOTE | 2019-11-11 12:18 | IPNPDOC ---
Text Note Date of Service The patient was seen on 11/11/19. NOTE S: Patient seen and examined at bedside. Not answering questions this morning. Vitals are stable. O: General; NAD, lyign comfortably in bed HEENT: NC/AT, PERRL Lungs: CTA B/L Heart: +S1S2, RRR Abd: soft, NT, +BS Ext: trace edema A/P: Patient is a 34 year old female history of suicide gesture, depression, IVDA, and polysubstance abuse here with suicide attempt by overdose. In the ED, poison control was contacted, recommended supportive care. Otherwise, when patient is medically stable, will need psych consult for suicide attempt. #Overdose - Overdosed on risperidone. ED contacted poison control. Recommended supportive care. - ABG unremarkable. VS stable. Continue to monitor #Suicide attempt - Suicide precautions, will need psych consult when medically stable #Rhabdomyolysis - much improved - IV fluids and follow CPK #Hepatitis C #anxiety/depression # Polysubstance abuse - admitted to "Catie" use prior to admission - Holding amitriptyline, atomoxetine, citalopram, clonidine , Levetiracetam (pending levels, may restart if not supratherupeutic), oxcarbazepine (pending levels, may restart if not supratherupeutic), Risperidone - holding Buprenorphine/Naloxone in concern for precipitating opioid withdrawal - Continuing Gabapentin in concern for precipitating gabapentin withdrawal # Migraines - PRN sumatriptan #Hypokalemia - Potassium 2.9 in ED. Given 1 krun in ED. Will give 2 more krun and recheck. Magnesium was 1.9 #Transaminitis - improving - AST 116 and ALT 91 on admission. Continue to trend #qTC prolongation - repeat ECG pending #DVT ppx - Heparin subq VS,Fishbone, I+O VS, Fishbone, I+O Laboratory Tests 11/10/19 21:00 11/11/19 06:16 Vital Signs Date Time Temp Pulse Resp B/P (MAP) Pulse Ox O2 Delivery O2 Flow Rate FiO2 11/11/19 12:00 98.8 87 20 131/66 (87) 96 Room Air 11/10/19 17:30 1.0 I&O- Last 24 Hours up to 6 AM 11/11/19 06:00 Intake Total 2900 ml Balance 2900 ml JESSICA HELMS MD Nov 11, 2019 12:18
[2019-11-11] MEDS ORDERED: diphenhydrAMINE 25MG CAP PO PRN (18:30)
[2019-11-11] MEDS: BUPRENORPHINE/NALOXONE 8-2MG SUBLINGUAL TABLET(SUBOXONE) SL SCH (18:40)
[2019-11-11] MEDS: AMITRIPTYLINE 25 MG TAB PO SCH (19:58)
[2019-11-11] MEDS: cloNIDine 0.1 MG TAB PO SCH (19:58)
[2019-11-11] MEDS ORDERED: AMITRIPTYLINE 25 MG TAB PO SCH (21:00)
[2019-11-12] VITALS: BP 102/52
--- NOTE | 2019-11-12 00:34 | ECGEPIP ---
[facility] Test Date: 2019-11-11 Pat Name: MELANY LEE Department: Room: [place] [address] Gender: Female Circuit Court Magistrate: KAYLAN : 1985 Requested By: JESSICA Bui Order Number: [id number] Reading MD: Femi Elliott Measurements Intervals [place] Rate: 91 P: 54 MN: 147 QRS: 43 QRSD: 83 T: 44 QT: 355 QTc: 437 Interpretive Statements SINUS RHYTHM NONSPECIFIC T-WAVE ABNORMALITY Normal QTC Electronically Signed on 11-12-2019 0:34:22 EDT by Femi Elliott
--- NOTE | 2019-11-12 00:39 | ECGEPIP ---
[facility] Test Date: 2019-11-11 Pat Name: MELANY LEE Department: Room: [place] [address] Gender: Female Engraver Set Up Operator: SHERITA : 1985 Requested By: REEMA Limon Order Number: [id number] Reading MD: Femi Elliott Measurements Intervals [place] Rate: 102 P: 65 GA: 142 QRS: 53 QRSD: 79 T: 41 QT: 345 QTc: 451 Interpretive Statements SINUS TACHYCARDIA Electronically Signed on 11-12-2019 0:39:15 EDT by Femi Elliott
[2019-11-12 04:00] VITALS: BP 103/52
[2019-11-12] MEDS: HEPARIN SOD (PORCINE) 5000UNITS/ML 1ML VIAL/SYRINGE SC SCH ×3 (05:39→22:47)
[2019-11-12 07:48] VITALS: BP 113/64
[2019-11-12] MEDS: cloNIDine 0.1 MG TAB PO SCH ×2 (08:57→20:24)
[2019-11-12] MEDS: OMEPRAZOLE 20 MG CAP PO SCH (08:57)
[2019-11-12] MEDS: SUCRALFATE 1 GM TAB PO SCH ×4 (08:57→20:25)
[2019-11-12] MEDS: GABAPENTIN 400 MG CAP PO SCH (08:57)
[2019-11-12] MEDS: BUPRENORPHINE/NALOXONE 8-2MG SUBLINGUAL TABLET(SUBOXONE) SL SCH (08:58)
[2019-11-12] MEDS: OXcarbazepine 150 MG TAB PO SCH (09:00)
[2019-11-12] MEDS ORDERED: CitaloPRAM (CeleXA) 20 MG TAB PO SCH (09:00)
[2019-11-12] MEDS: CitaloPRAM (CeleXA) 10 MG TABLET PO SCH (10:37)
[2019-11-12 11:33] VITALS: BP 108/63
[2019-11-12 15:42] VITALS: BP 129/62
[2019-11-12] MEDS ORDERED: SLF 3 ML SYR IV PRN (16:45)
[2019-11-12 20:00] VITALS: BP 109/57
[2019-11-12] MEDS: AMITRIPTYLINE 25 MG TAB PO SCH (20:25)
[2019-11-12] MEDS: SLF 3 ML SYR IV SCH (22:46)
[2019-11-13] VITALS: BP 127/57
[2019-11-13 04:00] VITALS: BP 116/62
[2019-11-13] MEDS: HEPARIN SOD (PORCINE) 5000UNITS/ML 1ML VIAL/SYRINGE SC SCH ×2 (05:07→17:23)
[2019-11-13] MEDS: SLF 3 ML SYR IV SCH ×2 (06:09→17:23)
--- NOTE | 2019-11-13 07:12 | IPNPDOC ---
Text Note Date of Service The patient was seen on 11/12/19. NOTE S: Patient seen and examined at bedside. No new medical complaints. No acute overnight events reported O: General; NAD, lyign comfortably in bed HEENT: NC/AT, PERRL Lungs: CTA B/L Heart: +S1S2, RRR Abd: soft, NT, +BS Ext: trace edema A/P: Patient is a 34 year old female history of suicide gesture, depression, IVDA, and polysubstance abuse here with suicide attempt by overdose. In the ED, poison control was contacted, recommended supportive care. #Overdose - Overdosed on risperidone. ED contacted poison control. Recommended supportive care. - ABG unremarkable. VS stable. Continue to monitor #Suicide attempt - Suicide precautions, psych c/s pending #Rhabdomyolysis - resolved #Hepatitis C #anxiety/depression # Polysubstance abuse - admitted to "Catie" use prior to admission - Home meds adjusted on discussion with psychiatry # Migraines - PRN sumatriptan #Hypokalemia - Potassium 2.9 in ED. Given 1 krun in ED. Will give 2 more krun and recheck. Magnesium was 1.9 #Transaminitis - improving - AST 116 and ALT 91 on admission. Continue to trend #qTC prolongation - repeat ECG pending #DVT ppx - Heparin subq Dispo: pending psych eval VS,Fishbone, I+O VS, Fishbone, I+O Vital Signs Date Time Temp Pulse Resp B/P (MAP) Pulse Ox O2 Delivery O2 Flow Rate FiO2 11/13/19 04:00 97.2 85 16 116/62 (80) 96 Room Air 11/10/19 17:30 1.0 I&O- Last 24 Hours up to 6 AM 11/13/19 06:00 Intake Total 720 ml Balance 720 ml JESSICA HELMS MD Nov 13, 2019 07:12
[2019-11-13 08:00] VITALS: BP 125/71
[2019-11-13] MEDS: OXcarbazepine 150 MG TAB PO SCH (09:00)
[2019-11-13] MEDS: SUCRALFATE 1 GM TAB PO SCH ×3 (09:11→17:23)
[2019-11-13] MEDS ORDERED: OXCA150T21 PO (10:26)
[2019-11-13] MEDS ORDERED: CELE10TA PO (10:26)
[2019-11-13] MEDS ORDERED: AMIT25TA PO (10:26)
[2019-11-13] MEDS: CitaloPRAM (CeleXA) 10 MG TABLET PO SCH (10:26)
[2019-11-13] MEDS ORDERED: GABA-845 PO (10:26)
[2019-11-13] MEDS: OMEPRAZOLE 20 MG CAP PO SCH (10:26)
[2019-11-13 10:27] VITALS: BP 125/71
[2019-11-13] MEDS: GABAPENTIN 400 MG CAP PO SCH (10:27)
[2019-11-13] MEDS: cloNIDine 0.1 MG TAB PO SCH (10:27)
[2019-11-13] MEDS: BUPRENORPHINE/NALOXONE 8-2MG SUBLINGUAL TABLET(SUBOXONE) SL SCH (10:31)
[2019-11-13 12:00] VITALS: BP 119/57
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
[2019-11-14 02:11] LABS: LEVETIRACETAM (KEPPRA) 3.7 ug/mL (10.0-40.0); OXCARBAZEPINE <1 ug/mL (10-35)
--- NOTE | 2019-11-14 10:05 | ECGEPIP ---
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
== END 2019-11-13 17:56 | DRG 812 ==
LOC: M ED 10:23 → EDBD 10:23 → M ED INP 12:56 → EEVIPCON 12:56 → M PCU 19:28
PROVIDERS: ADMIT Internal Medicine; ATTEND Internal Medicine
DX: T43.502A Poisoning by unspecified antipsychotics and neuroleptics, intentional self-harm, initial encounter (principal); M62.82 Rhabdomyolysis; F32.9 Major depressive disorder, single episode, unspecified; G43.909 Migraine, unspecified, not intractable, without status migrainosus; E87.6 Hypokalemia; R74.0 Nonspecific elevation of levels of transaminase and lactic acid dehydrogenase [LDH]; B19.20 Unspecified viral hepatitis C without hepatic coma; R94.31 Abnormal electrocardiogram [ECG] [EKG]; F19.10 Other psychoactive substance abuse, uncomplicated; F43.10 Post-traumatic stress disorder, unspecified; Z79.899 Other long term (current) drug therapy; Z88.0 Allergy status to penicillin; Z88.6 Allergy status to analgesic agent; Z88.2 Allergy status to sulfonamides; Z88.8 Allergy status to other drugs, medicaments and biological substances

== ENCOUNTER 2019-11-13 14:49 | Inpatient (IN) | payer MEDICAID ==
[~2019-11-13] VITALS: Ht 152.4 cm; Wt 77.4 kg
[~2019-11-13 14:49] MED LIST changes: +AMIT25TA PO; +CELE10TA PO; +CELE20TA PO; +LORA-436 PO; +MED REC COMMENT; +OMEP1CAP73 PO; +OXCA150T21 PO; +RISP2TAB3 PO; +STRA18CA PO
[2019-11-13] MEDS ORDERED: traZODone 50 MG TAB PO PRN (17:15)
[2019-11-13] MEDS ORDERED: MOM 30ML SUSPENSION UDC PO PRN (17:15)
[2019-11-13] MEDS ORDERED: ACETAMINOPHEN TAB 650MG DOSE (2X325MG) PO PRN (17:15)
[2019-11-13] MEDS ORDERED: SUMAtriptan SUCCINATE 25 MG TAB PO PRN (17:15)
[2019-11-13 18:49] VITALS: BP 123/66
[2019-11-13] MEDS: AMITRIPTYLINE 25 MG TAB PO SCH (20:01)
[2019-11-13] MEDS: cloNIDine 0.1 MG TAB PO SCH (20:01)
[2019-11-13] MEDS: SUCRALFATE 1 GM TAB PO SCH (20:01)
[2019-11-13] MEDS ORDERED: BUPRENORPHINE/NALOXONE 8-2MG SUBLINGUAL TABLET(SUBOXONE) SL SCH (21:00)
[2019-11-14 06:30] VITALS: BP 120/77
[2019-11-14] MEDS: SUCRALFATE 1 GM TAB PO SCH ×4 (07:53→20:16)
[2019-11-14] MEDS ORDERED: BUPRENORPHINE/NALOXONE 8-2MG SUBLINGUAL TABLET(SUBOXONE) SL SCH ×3 (09:00)
[2019-11-14] MEDS ORDERED: GABAPENTIN 400 MG CAP PO SCH ×2 (09:00→21:00)
[2019-11-14] MEDS ORDERED: OXcarbazepine 150 MG TAB PO SCH (09:00)
[2019-11-14] MEDS: OMEPRAZOLE 20 MG CAP PO SCH (09:24)
[2019-11-14] MEDS: CitaloPRAM (CeleXA) 10 MG TABLET PO SCH (09:24)
[2019-11-14] MEDS: cloNIDine 0.1 MG TAB PO SCH ×2 (09:25→20:16)
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
[2019-11-14] MEDS ORDERED: traZODone 50 MG TAB PO PRN (14:15)
[2019-11-14] MEDS ORDERED: MAALOX 30 ML SUSP *UDC PO PRN (14:15)
[2019-11-14] MEDS ORDERED: IBUPROFEN 400 MG TAB PO PRN (14:15)
[2019-11-14] MEDS ORDERED: MOM 30ML SUSPENSION UDC PO PRN (14:15)
[2019-11-14] MEDS: GABAPENTIN 300 MG CAP PO SCH ×2 (15:35→20:16)
[2019-11-14 16:31] VITALS: BP 119/65
--- NOTE | 2019-11-14 19:41 | HPEPDOC ---
General Date of Admission Nov 13, 2019 at 18:00 Date of Service: Nov 14, 2019 Chief Complaint The patient is a 34-year-old female admitted with a reason for visit of Unspecified Depressive Disorder. Source: Patient Exam Limitations: No limitations Timing/Duration: Day(s), Week(s) Severity: Moderate History of Present Illness Patient is a 34 year old female with depression, polysubstance abuse, and suicide gesture here with suicide attempt by overdosing on risperidone. She was arguing with her ex-boyfriend. As a suicide attempt handful of risperidone and swallowed it. By pill bottle count, it was about 25 to 35 pills. After medical stabilization patient was transferred to mental health unit. During my interview patient denied fever, chills, nausea, vomiting, diarrhea or dysuria Home Medications Scheduled Amitriptyline HCl (Amitriptyline HCl) 25 Mg Tablet, 25 MG PO QHS Buprenorphine HCl/Naloxone HCl (Suboxone 8 mg-2 mg Sl Film) 1 Each Film, 2 STRIP SL DAILY, (Reported) Citalopram Hydrobromide (Celexa) 10 Mg Tablet, 10 MG PO DAILY Clonidine Hcl (Clonidine HCl) 0.1 Mg Tablet, 0.1 MG PO BID, (Reported) Gabapentin (Gabapentin) 400 Mg Capsule, 400 MG PO DAILY Levetiracetam (Keppra) 1,000 Mg Tab, 1,000 MG PO BID for ., (Reported) Loratadine (Loratadine) 10 Mg Tablet, 10 MG PO DAILY, (Reported) Omeprazole (Omeprazole) 20 Mg Capsule.dr, 20 MG PO DAILY, (Reported) Oxcarbazepine (Oxcarbazepine) 150 Mg Tablet, 150 MG PO QAM Sucralfate (Sucralfate) 1 Gm Tablet, 1 GM PO ACHS, (Reported) Scheduled PRN Sumatriptan Succinate (Imitrex) 50 Mg Tablet, 50 MG PO DAILY PRN for MIGRAINE, (Reported) Miscellaneous Medications [Med Rec Comment] , (Reported) VERIFIED WITH [facility] Allergies Coded Allergies: Penicillins (Verified Allergy, Unknown, 10/14/19) dextroamphetamine (Verified Allergy, Unknown, 10/14/19) haloperidol (Verified Allergy, Unknown, 10/14/19) ibuprofen (Verified Allergy, Unknown, 10/14/19) Prefers stronger meds olanzapine (Verified Allergy, Unknown, 10/14/19) sulfamethoxazole (Verified Allergy, Unknown, 10/14/19) trimethoprim (Verified Allergy, Unknown, 10/14/19) ziprasidone (Verified Allergy, Unknown, 10/14/19) Past Medical History Medical History 1. Suicide gesture 2. Depression/Anxiety 3. Polysubstance abuse 4. IV drug abuse 5. Hepatitis C 6. Migraine Surgical History 1. Hernia Repair Family History Mother had lupus Father had cirrhosis Social History * Smoker: current smoker Alcohol: occationally Drugs: IV drug use A-FIB/CHADSVASC A-FIB History Current/History of A-Fib/PAF?: No Current PO Anticoag Therapy: No Review of Systems Constitutional: Denies: Chills, Fever Eyes: Denies: Pain ENT: Denies: Head Aches Skin: Denies: Rash Pulmonary: Denies: Dyspnea Cardiovascular: Denies: Chest Pain Gastrointestinal: Denies: Nausea, Vomiting Genitourinary: Denies: Dysuria Hematologic: Denies: Bruising Endocrine: Denies: Polydipsia Musculoskeletal: Denies: Neck Pain Neurological: Denies: Weakness Psych: Reports: Depression Physical Examination General Exam: Positive: Alert, Cooperative, No Acute Distress Eye Exam: Positive: PERRLA ENT Exam: Positive: Atraumatic Neck Exam: Positive: Supple; Negative: JVD Chest Exam: Positive: Clear to auscultation Heart Exam: Positive: Rate Normal Telemetry: Positive: No significant arrhythmia Abdomen Exam: Positive: Normal bowel sounds Extremity Exam: Negative: Clubbing, Cyanosis Skin Exam: Positive: Nl turgor and temperature Neuro Exam: Positive: Normal Gait, Strength at 5/5 X4 ext Psych Exam: Positive: Mental status NL Vital Signs Vital Signs Date Time Temp Pulse Resp B/P (MAP) Pulse Ox O2 Delivery O2 Flow Rate FiO2 11/14/19 16:31 98.1 94 18 119/65 (83) 11/14/19 06:30 99 Room Air Assessment/Plan Patient is a 34 year old female with depression, polysubstance abuse, and suicide gesture here with suicide attempt by overdosing on risperidone. She was arguing with her ex-boyfriend. As a suicide attempt handful of risperidone and swallowed it. By pill bottle count, it was about 25 to 35 pills. After medical stabilization patient was transferred to mental health unit. During my interview patient denied fever, chills, nausea, vomiting, diarrhea or dysuria Problems (1) Anxiety Status: Acute Problem Text: Defer treatment to psych team (2) Depression Status: Acute Problem Text: defer treatment for psych team (3) GERD (gastroesophageal reflux disease) Status: Chronic Problem Text: PPI Plan / VTE VTE Prophylaxis Ordered?: No VTE Exclusion Mechanical Proph: Low Risk for VTE DANELLE ARIZA DO Nov 14, 2019 19:41
[2019-11-14] MEDS: NICOTINE 21MG/24HR 1 EA TRANSDERMAL TD SCH (20:15)
[2019-11-14] MEDS: levETIRAcetam 250MG TABLET (KEPPRA) PO SCH (20:16)
[2019-11-14] MEDS: AMITRIPTYLINE 25 MG TAB PO SCH (20:16)
[2019-11-14] MEDS: BUPRENORPHINE/NALOXONE 8-2MG SUBLINGUAL TABLET(SUBOXONE) SL SCH (20:35)
[2019-11-14] MEDS ORDERED: LORazepam 0.5 MG TAB PO SCH (21:00)
[2019-11-14] MEDS ORDERED: OLANZapine 5 MG TAB PO SCH (21:00)
[2019-11-15 06:32] VITALS: BP 117/60
[2019-11-15] MEDS: SUCRALFATE 1 GM TAB PO SCH ×4 (07:23→20:10)
[2019-11-15] MEDS: OMEPRAZOLE 20 MG CAP PO SCH (08:30)
[2019-11-15] MEDS: levETIRAcetam 250MG TABLET (KEPPRA) PO SCH ×2 (08:30→20:11)
[2019-11-15] MEDS: cloNIDine 0.1 MG TAB PO SCH ×2 (08:30→20:10)
[2019-11-15] MEDS: GABAPENTIN 300 MG CAP PO SCH ×3 (08:30→20:09)
[2019-11-15] MEDS: NICOTINE 21MG/24HR 1 EA TRANSDERMAL TD SCH (08:31)
[2019-11-15] MEDS: CitaloPRAM (CeleXA) 10 MG TABLET PO SCH (08:31)
[2019-11-15] MEDS: BUPRENORPHINE/NALOXONE 8-2MG SUBLINGUAL TABLET(SUBOXONE) SL SCH ×2 (08:31→20:09)
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
[2019-11-15] MEDS ORDERED: clonazePAM 0.5 MG TAB PO ONE (12:15)
[2019-11-15 16:15] VITALS: BP 115/62
--- NOTE | 2019-11-15 16:55 | ECGEPIP ---
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
[2019-11-15] MEDS: AMITRIPTYLINE 25 MG TAB PO SCH (20:10)
[2019-11-15] MEDS: risperiDONE 1 MG TAB PO SCH (20:10)
[2019-11-16] MEDS: MAALOX 30 ML SUSP *UDC PO PRN ×2 (04:01→23:12)
[2019-11-16 06:25] VITALS: BP 121/59
[2019-11-16] MEDS: SUCRALFATE 1 GM TAB PO SCH ×4 (07:17→21:21)
[2019-11-16] MEDS: NICOTINE 21MG/24HR 1 EA TRANSDERMAL TD SCH (08:08)
[2019-11-16] MEDS: GABAPENTIN 300 MG CAP PO SCH ×3 (08:08→21:20)
[2019-11-16] MEDS: BUPRENORPHINE/NALOXONE 8-2MG SUBLINGUAL TABLET(SUBOXONE) SL SCH ×2 (08:08→21:21)
[2019-11-16] MEDS: CitaloPRAM (CeleXA) 10 MG TABLET PO SCH (08:08)
[2019-11-16] MEDS: clonazePAM 0.5 MG TAB PO SCH (08:08)
[2019-11-16] MEDS: risperiDONE 1 MG TAB PO SCH ×2 (08:08→21:21)
[2019-11-16] MEDS: levETIRAcetam 250MG TABLET (KEPPRA) PO SCH ×2 (08:09→21:20)
[2019-11-16] MEDS: OMEPRAZOLE 20 MG CAP PO SCH (08:10)
[2019-11-16] MEDS: cloNIDine 0.1 MG TAB PO SCH ×2 (08:11→21:23)
--- NOTE | 2019-11-16 12:13 | MHIPNPDOC ---
[facility] Progress Note Progress Note DATE OF SERVICE: 11/16/19 Subjective HPI: Melissa presents today, however, is very sleepy and resting comfortbly, she doesn't awaken to my attempts to get her to meet with me, some in staff are concerned that she may be oversedated from combination of medication or even smuggling other items on the unit. Objective Appearance: Well nourished. Appears to be stated age. Well groomed. Patient resting comfortably without any distress. . Assessment F43.10 Post-traumatic stress disorder, unspecified F60.2 Antisocial personality disorder Plan Potential discharge tomorrow. Continue medications as current, observe for any more excessive sedation events Vital Signs Vital Signs Date Time Temp Pulse Resp B/P (MAP) Pulse Ox O2 Delivery O2 Flow Rate FiO2 11/16/19 08:11 126/64 11/16/19 06:25 97.8 91 16 11/15/19 06:32 Room Air 11/14/19 06:30 99 Current Medications Current Medications Medications (Trade) Dose Ordered Sig/Carlos Route PRN Reason Start Time Stop Time Status Last Admin Dose Admin Acetaminophen (Tylenol Tab) 650 mg Q6HP PRN PO HEADACHE or DISCOMFORT 11/13/19 17:15 Al Hydrox/Mg Hydrox/Simethicone (Mylanta) 30 ml Q4HP PRN PO HEARTBURN/INDIGESTION 11/13/19 17:15 11/16/19 04:01 Al Hydrox/Mg Hydrox/Simethicone (Mylanta) 30 ml Q4HP PRN PO HEARTBURN/INDIGESTION 11/14/19 14:15 11/14/19 14:16 DC Amitriptyline HCl (Elavil) 25 mg QHS PO 11/13/19 21:00 11/15/19 20:10 Buprenorphine/ Naloxone (Suboxone 8/2mg) 1 tab BID SL 11/13/19 21:00 11/13/19 21:08 DC 11/13/19 20:57 Buprenorphine/ Naloxone (Suboxone 8/2mg) 1 tab BID SL 11/14/19 00:00 UNV Buprenorphine/ Naloxone (Suboxone 8/2mg) 1 tab BID SL 11/14/19 21:00 11/16/19 08:08 Buprenorphine/ Naloxone (Suboxone 8/2mg) 1 tab DAILY SL 11/14/19 09:00 11/14/19 20:27 DC 11/14/19 09:24 Buprenorphine/ Naloxone (Suboxone 8/2mg) 1 tab DAILY SL 11/14/19 09:00 Cancel Citalopram Hydrobromide (CeleXA) 10 mg DAILY PO 11/14/19 09:00 11/16/19 08:08 Clonazepam (KlonoPIN) 0.5 mg DAILY PO 11/16/19 09:00 11/16/19 08:08 Clonidine HCl (Catapres) 0.1 mg BID PO 11/13/19 21:00 11/16/19 08:11 Gabapentin (Neurontin) 400 mg BID PO 11/14/19 21:00 11/14/19 15:14 DC Gabapentin (Neurontin) 400 mg QAM PO 11/14/19 09:00 11/14/19 11:35 DC 11/14/19 09:24 Gabapentin (Neurontin) 600 mg TID PO 11/14/19 16:00 11/16/19 08:08 Home Med (Med Rec Complete!) ASDIRECTED XX 11/13/19 18:45 11/13/19 18:38 DC Ibuprofen (Advil) 400 mg Q6HP PRN PO PAIN 11/14/19 14:15 Cancel Levetiracetam (Keppra) 1,000 mg BID PO 11/14/19 21:00 11/16/19 08:09 Lorazepam (Ativan) 0.5 mg QHS PO 11/14/19 21:00 11/15/19 12:03 DC 11/14/19 20:16 Magnesium Hydroxide (Milk Of Magnesia) 30 ml DAILYPRN PRN PO CONSTIPATION 11/13/19 17:15 Magnesium Hydroxide (Milk Of Magnesia) 30 ml DAILYPRN PRN PO CONSTIPATION 11/14/19 14:15 11/14/19 14:17 DC Nicotine (Nicoderm Cq 21mg) 1 patch DAILY TD 11/14/19 09:00 11/16/19 08:08 Olanzapine (ZyPREXA) 5 mg QHS PO 11/14/19 21:00 Cancel Omeprazole (PriLOSEC) 20 mg DAILY PO 11/14/19 09:00 11/16/19 08:10 Oxcarbazepine (Trileptal) 150 mg QAM PO 11/14/19 09:00 11/14/19 11:35 DC 11/14/19 09:24 Risperidone (RisperDAL) 1 mg BID PO 11/15/19 21:00 11/16/19 08:08 Sucralfate (Carafate) 1 gm ACHS PO 11/13/19 21:00 11/16/19 11:53 Sumatriptan Succinate (Imitrex) 50 mg DAILYPRN PRN PO HEADACHE 11/13/19 17:15 Trazodone HCl (Desyrel) 50 mg QHSP PRN PO INSOMNIA 11/13/19 17:15 Trazodone HCl (Desyrel) 50 mg QHSP PRN PO INSOMNIA 11/14/19 14:15 11/14/19 14:17 DC Allergies Coded Allergies: Penicillins (Verified Allergy, Unknown, 10/14/19) dextroamphetamine (Verified Allergy, Unknown, 10/14/19) haloperidol (Verified Allergy, Unknown, 10/14/19) ibuprofen (Verified Allergy, Unknown, 10/14/19) Prefers stronger meds olanzapine (Verified Allergy, Unknown, 10/14/19) sulfamethoxazole (Verified Allergy, Unknown, 10/14/19) trimethoprim (Verified Allergy, Unknown, 10/14/19) ziprasidone (Verified Allergy, Unknown, 10/14/19) ABDOULAYE CASTRO DO Nov 16, 2019 12:13
[2019-11-16 16:22] VITALS: BP 108/60
[2019-11-16] MEDS: AMITRIPTYLINE 25 MG TAB PO SCH (21:20)
[2019-11-16] MEDS ORDERED: traZODone 50 MG TAB PO ONE (23:00)
[2019-11-17] MEDS: MAALOX 30 ML SUSP *UDC PO PRN (03:14)
[2019-11-17 06:17] VITALS: BP 115/58
[2019-11-17] MEDS: SUCRALFATE 1 GM TAB PO SCH ×4 (07:48→20:38)
[2019-11-17] MEDS: levETIRAcetam 250MG TABLET (KEPPRA) PO SCH ×2 (08:22→20:39)
[2019-11-17] MEDS: CitaloPRAM (CeleXA) 10 MG TABLET PO SCH (08:22)
[2019-11-17] MEDS: cloNIDine 0.1 MG TAB PO SCH ×2 (08:23→20:43)
[2019-11-17] MEDS: clonazePAM 0.5 MG TAB PO SCH (08:23)
[2019-11-17] MEDS: risperiDONE 1 MG TAB PO SCH ×2 (08:25→20:39)
[2019-11-17] MEDS: OMEPRAZOLE 20 MG CAP PO SCH (08:25)
[2019-11-17] MEDS: GABAPENTIN 300 MG CAP PO SCH ×3 (08:25→20:40)
[2019-11-17] MEDS: BUPRENORPHINE/NALOXONE 8-2MG SUBLINGUAL TABLET(SUBOXONE) SL SCH ×2 (09:11→20:40)
[2019-11-17] MEDS: NICOTINE 21MG/24HR 1 EA TRANSDERMAL TD SCH (09:12)
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
[2019-11-17 17:54] VITALS: BP 110/60
[2019-11-17] MEDS: AMITRIPTYLINE 25 MG TAB PO SCH (20:38)
[2019-11-17] MEDS ORDERED: QUEtiapine FUMARATE 25 MG TAB PO ONE (23:45)
[2019-11-18 06:44] VITALS: BP 125/76
[2019-11-18] MEDS: SUCRALFATE 1 GM TAB PO SCH ×2 (07:54→11:26)
[2019-11-18] MEDS: NICOTINE 21MG/24HR 1 EA TRANSDERMAL TD SCH (09:00)
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
[2019-11-18] MEDS: levETIRAcetam 250MG TABLET (KEPPRA) PO SCH (09:28)
[2019-11-18] MEDS: CitaloPRAM (CeleXA) 10 MG TABLET PO SCH (09:28)
[2019-11-18 09:30] VITALS: BP 125/76
[2019-11-18] MEDS: GABAPENTIN 300 MG CAP PO SCH (09:30)
[2019-11-18] MEDS: OMEPRAZOLE 20 MG CAP PO SCH (09:30)
[2019-11-18] MEDS: cloNIDine 0.1 MG TAB PO SCH (09:30)
[2019-11-18] MEDS: risperiDONE 1 MG TAB PO SCH (09:30)
[2019-11-18] MEDS: clonazePAM 0.5 MG TAB PO SCH (09:30)
[2019-11-18] MEDS ORDERED: CLON0.5T2 PO (09:42)
[2019-11-18] MEDS ORDERED: RISP1TAB42 PO (09:43)
[2019-11-18] MEDS ORDERED: NICO21PAT TD (09:43)
[2019-11-18] MEDS: BUPRENORPHINE/NALOXONE 8-2MG SUBLINGUAL TABLET(SUBOXONE) SL SCH (09:51)
== END 2019-11-18 12:00 | disposition home or self-care (01) | DRG 755 ==
LOC: M ED INP 18:00 → M PSY 18:05
PROVIDERS: ADMIT Psychiatry & Neurology Addiction Medicine; ATTEND Psychiatry & Neurology Addiction Medicine
DX: F43.12 Post-traumatic stress disorder, chronic (principal); F33.9 Major depressive disorder, recurrent, unspecified; F20.9 Schizophrenia, unspecified; Z62.810 Personal history of physical and sexual abuse in childhood; Z79.899 Other long term (current) drug therapy; Z88.0 Allergy status to penicillin; Z88.2 Allergy status to sulfonamides; Z88.8 Allergy status to other drugs, medicaments and biological substances; F17.200 Nicotine dependence, unspecified, uncomplicated; B19.20 Unspecified viral hepatitis C without hepatic coma; G43.909 Migraine, unspecified, not intractable, without status migrainosus; K21.9 Gastro-esophageal reflux disease without esophagitis; F19.10 Other psychoactive substance abuse, uncomplicated; F60.2 Antisocial personality disorder; Z91.5 Personal history of self-harm

== ENCOUNTER 2019-11-22 10:59 | Emergency (ER) | payer MEDICAID, OTHER ==
[~2019-11-22] VITALS: Ht 152.4 cm; Wt 78.2 kg
[~2019-11-22 10:59] MED LIST changes: +CLON0.5T2 PO; +NICO21PAT TD; +RISP1TAB42 PO
[2019-11-22 12:19] LABS: BASO % 0.5 % (0.0-1.0); EOS # 0.1 10^3/uL (0.0-0.5); EOS % 1.8 % (0.0-3.0); HEMATOCRIT 32.9 % (36.0-47.0); HEMOGLOBIN 10.6 g/dl (12.0-15.5); LYMPH # 2.5 10^3/uL (1.5-5.0); LYMPH % 44.9 % (24.0-44.0); MEAN CORPUSCULAR HEMOGLOBIN 29.9 pg (27.0-33.0); MEAN CORPUSCULAR HGB CONC 32.2 g/dl (32.0-36.5); MEAN CORPUSCULAR VOLUME 92.9 fl (80.0-96.0); MONO # 0.6 10^3/uL (0.0-0.8); MONO % 11.4 % (0.0-5.0); NEUTROPHILS # 2.3 10^3/uL (1.5-8.5); NEUTROPHILS % 40.9 % (36.0-66.0); PLATELET COUNT, AUTOMATED 263 10^3/uL (150-450); RED BLOOD COUNT 3.54 10^6/uL (4.00-5.40); WHITE BLOOD COUNT 5.6 10^3/uL (4.0-10.0)
[2019-11-22 12:39] LABS: BLOOD UREA NITROGEN 19 MG/DL (7-18); CALCIUM LEVEL 8.8 MG/DL (8.5-10.1); CARBON DIOXIDE LEVEL 30 MEQ/L (21-32); CHLORIDE LEVEL 105 MEQ/L (98-107); CREATININE FOR GFR 0.57 MG/DL (0.55-1.30); GLOMERULAR FILTRATION RATE > 60.0 (>60); GLUCOSE, FASTING 78 MG/DL (70-100); POTASSIUM SERUM 3.1 MEQ/L (3.5-5.1); SODIUM LEVEL 140 MEQ/L (136-145)
[2019-11-22] MEDS ORDERED: diphenhydrAMINE 50MG/ML VIAL (J1200) IV ONE (13:00)
[2019-11-22] MEDS ORDERED: NS 1,000 ML IV ONE (13:00)
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
[2019-11-22] MEDS ORDERED: KCL 10MEQ/100ML SWI (KRUN) 10 MEQ in IV 1 EA IV ONE (13:30)
[2019-11-22] MEDS ORDERED: POTASSIUM CHLORIDE 10 MEQ SR TABLET PO ONE (13:30)
[2019-11-22 15:09] VITALS: BP 102/57
== END 2019-11-22 15:50 | disposition home or self-care (01) ==
LOC: EDBD 10:59 → M ED 10:59
DX: H11.32 Conjunctival hemorrhage, left eye (principal); H05.222 Edema of left orbit; T74.11XA Adult physical abuse, confirmed, initial encounter; Y07.03 Male partner, perpetrator of maltreatment and neglect; E87.6 Hypokalemia; R51 Headache; F19.10 Other psychoactive substance abuse, uncomplicated; Z91.81 History of falling; Z91.5 Personal history of self-harm; F17.210 Nicotine dependence, cigarettes, uncomplicated; Z88.0 Allergy status to penicillin; Z88.8 Allergy status to other drugs, medicaments and biological substances; Z88.6 Allergy status to analgesic agent; Z88.2 Allergy status to sulfonamides; Z79.899 Other long term (current) drug therapy
CPT/HCPCS: 70450; 70486; 72125; 80048; 84702; 85025; 96365; 96366; 96375; 99284; J1200

== ENCOUNTER 2019-11-29 12:56 | Emergency (ER) | payer OTHER ==
[2019-11-29 13:45] VITALS: BP 132/72
== END 2019-11-29 14:05 | disposition home or self-care (01) ==
LOC: EDBD 12:56 → M ED 12:56
DX: F19.10 Other psychoactive substance abuse, uncomplicated (principal); R20.8 Other disturbances of skin sensation; M79.605 Pain in left leg; R07.9 Chest pain, unspecified; F32.9 Major depressive disorder, single episode, unspecified; F17.200 Nicotine dependence, unspecified, uncomplicated; Z88.0 Allergy status to penicillin; Z88.8 Allergy status to other drugs, medicaments and biological substances; Z88.6 Allergy status to analgesic agent; Z88.2 Allergy status to sulfonamides; Z79.899 Other long term (current) drug therapy

== ENCOUNTER 2019-12-02 09:49 | Emergency (ER) | payer OTHER ==
[~2019-12-02] VITALS: Ht 152.4 cm; Wt 77.3 kg
[2019-12-02] MEDS ORDERED: ACETAMINOPHEN 500 MG TAB PO ONE (10:00)
[2019-12-02] MEDS ORDERED: hydrOXYzine 25 MG TAB PO STA (11:02)
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
[2019-12-02 12:17] VITALS: BP 118/64
== END 2019-12-02 12:38 | disposition home or self-care (01) ==
LOC: M ED 09:49 → EDBD 09:49 → M ED 12:38
DX: S00.93XA Contusion of unspecified part of head, initial encounter (principal); T76.11XA Adult physical abuse, suspected, initial encounter; Y07.03 Male partner, perpetrator of maltreatment and neglect; F32.9 Major depressive disorder, single episode, unspecified; F41.9 Anxiety disorder, unspecified; B19.20 Unspecified viral hepatitis C without hepatic coma; G43.909 Migraine, unspecified, not intractable, without status migrainosus; Z88.0 Allergy status to penicillin; Z88.8 Allergy status to other drugs, medicaments and biological substances; Z88.6 Allergy status to analgesic agent; Z88.2 Allergy status to sulfonamides; Z79.899 Other long term (current) drug therapy

== ENCOUNTER 2019-12-02 19:58 | Emergency (ER) | payer OTHER ==
[~2019-12-02] VITALS: Ht 152.4 cm; Wt 77.3 kg
[2019-12-02 21:30] VITALS: BP 130/70
== END 2019-12-02 21:41 | disposition home or self-care (01) ==
LOC: M ED 19:58
DX: F19.10 Other psychoactive substance abuse, uncomplicated (principal); B19.20 Unspecified viral hepatitis C without hepatic coma; Z91.5 Personal history of self-harm; F17.200 Nicotine dependence, unspecified, uncomplicated; Z88.0 Allergy status to penicillin; Z88.8 Allergy status to other drugs, medicaments and biological substances; Z88.6 Allergy status to analgesic agent; Z88.2 Allergy status to sulfonamides; Z79.899 Other long term (current) drug therapy

== ENCOUNTER 2019-12-03 04:58 | Emergency (ER) | payer OTHER ==
[~2019-12-03] VITALS: Ht 152.4 cm; Wt 77.3 kg
[2019-12-03] MEDS ORDERED: LORazepam 2 MG/ML VIAL IM STA ×2 (05:12→06:24)
[2019-12-03 05:30] VITALS: BP 141/77
== END 2019-12-03 07:45 | disposition home or self-care (01) ==
LOC: M ED 04:58
DX: F19.10 Other psychoactive substance abuse, uncomplicated (principal); B19.20 Unspecified viral hepatitis C without hepatic coma; F31.9 Bipolar disorder, unspecified; F17.200 Nicotine dependence, unspecified, uncomplicated; Z79.899 Other long term (current) drug therapy; Z88.0 Allergy status to penicillin; Z91.018 Allergy to other foods; Z88.8 Allergy status to other drugs, medicaments and biological substances; Z88.6 Allergy status to analgesic agent; Z88.2 Allergy status to sulfonamides
CPT/HCPCS: 96372; 99284; J2060

== ENCOUNTER 2019-12-13 21:52 | Emergency (ER) | payer OTHER ==
[~2019-12-13] VITALS: Ht 152.4 cm; Wt 77.3 kg
[2019-12-13] MEDS ORDERED: HALOPERIDOL 5MG/ML VIAL (J1630 PER 1) As Ordered ONE (21:56)
[2019-12-13] MEDS ORDERED: LORazepam 2 MG/ML VIAL As Ordered ONE (21:57)
[2019-12-13] MEDS ORDERED: LORazepam 2 MG/ML VIAL IM STA (22:05)
[2019-12-13] MEDS ORDERED: HALOPERIDOL 5MG/ML VIAL (J1630 PER 1) IM STA (22:05)
[2019-12-13 22:37] LABS: HEMATOCRIT 37.8 % (36.0-47.0); HEMOGLOBIN 12.3 g/dl (12.0-15.5); MEAN CORPUSCULAR HEMOGLOBIN 29.6 pg (27.0-33.0); MEAN CORPUSCULAR HGB CONC 32.5 g/dl (32.0-36.5); MEAN CORPUSCULAR VOLUME 91.1 fl (80.0-96.0); PLATELET COUNT, AUTOMATED 259 10^3/uL (150-450); RED BLOOD COUNT 4.15 10^6/uL (4.00-5.40); WHITE BLOOD COUNT 9.3 10^3/uL (4.0-10.0)
[2019-12-13] MEDS ORDERED: RISP2TAB3 PO (23:00)
[2019-12-13] MEDS ORDERED: RISP1TAB42 PO (23:00)
[2019-12-13 23:09] LABS: AMPHETAMINES LEVEL URINE POSITIVE (NEGATIVE); BARBITURATES URINE NEGATIVE (NEGATIVE); BENZODIAZEPINES URINE POSITIVE (NEGATIVE); CANNABINOIDS URINE NEGATIVE (NEGATIVE); COCAINE METABOLITE URINE NEGATIVE (NEGATIVE); METHADONE URINE NEGATIVE (NEGATIVE); OPIATES URINE NEGATIVE (NEGATIVE); PHENCYCLIDINE URINE NEGATIVE (NEGATIVE)
[2019-12-13 23:44] LABS: ACETAMINOPHEN LEVEL < 2.0 UG/ML (10.0-30.0); ALBUMIN 4.4 GM/DL (3.2-5.2); ALT/SGPT 30 U/L (12-78); BILIRUBIN,DIRECT 0.1 MG/DL (0.0-0.2); BILIRUBIN,TOTAL 0.5 MG/DL (0.2-1.0); BLOOD UREA NITROGEN 22 MG/DL (7-18); CALCIUM LEVEL 8.6 MG/DL (8.5-10.1); CARBON DIOXIDE LEVEL 25 MEQ/L (21-32); CHLORIDE LEVEL 100 MEQ/L (98-107); CREATININE FOR GFR 0.87 MG/DL (0.55-1.30); ETHYL ALCOHOL (ETHANOL) < 0.003 % (0.000-0.010); GLOMERULAR FILTRATION RATE > 60.0 (>60); GLUCOSE, FASTING 104 MG/DL (70-100); POTASSIUM SERUM 4.1 MEQ/L (3.5-5.1); SODIUM LEVEL 135 MEQ/L (136-145); TOTAL PROTEIN 7.9 GM/DL (6.4-8.2)
[2019-12-14 01:24] VITALS: BP 129/80
[2019-12-14] MEDS ORDERED: AMIT100TA PO (11:47)
[2019-12-14] MEDS ORDERED: OXCA300T14 PO (11:47)
[2019-12-14] MEDS ORDERED: GABA600T4 PO (11:47)
[2019-12-14] MEDS ORDERED: CITA20TA6 PO (11:47)
--- NOTE | 2019-12-14 20:49 | ECGEPIP ---
[facility] - ED Test Date: 2019-12-13 Pat Name: MELANY LEE Department: Room: - Gender: Female [employer] Agent: hamilton : 1985 Requested By: DIEGO Reis Order Number: [id number] Reading MD: Shirley Spears Measurements Intervals [place] Rate: 80 P: 70 [place]: 150 QRS: 65 QRSD: 90 T: 47 QT: 369 QTc: 426 Interpretive Statements SINUS RHYTHM WITH MARKED SINUS ARRHYTHMIA POSSIBLE RIGHT VENTRICULAR CONDUCTION DELAY Electronically Signed on 12-14-2019 20:49:23 EDT by Shirley Spears
== END 2019-12-14 01:27 | disposition home or self-care (01) ==
LOC: M ED 21:52
DX: F19.10 Other psychoactive substance abuse, uncomplicated (principal); F25.9 Schizoaffective disorder, unspecified; Z88.0 Allergy status to penicillin; Z88.8 Allergy status to other drugs, medicaments and biological substances; Z88.6 Allergy status to analgesic agent; Z79.899 Other long term (current) drug therapy
CPT/HCPCS: 36415; 80048; 80076; 80307; 84443; 85027; 93005; 96372; 99284; G0480

== ENCOUNTER 2019-12-14 01:29 | Emergency (ER) | payer OTHER ==
[~2019-12-14] VITALS: Ht 152.4 cm; Wt 71.3 kg
[2019-12-14 01:29] VITALS: BP 138/78
[2019-12-14] MEDS ORDERED: OXCA300T14 PO (11:47)
[2019-12-14] MEDS ORDERED: GABA600T4 PO (11:47)
[2019-12-14] MEDS ORDERED: AMIT100TA PO (11:47)
[2019-12-14] MEDS ORDERED: CITA20TA6 PO (11:47)
== END 2019-12-14 02:16 | disposition home or self-care (01) ==
LOC: M ED 01:29
DX: M62.838 Other muscle spasm (principal); F19.10 Other psychoactive substance abuse, uncomplicated; F25.9 Schizoaffective disorder, unspecified; Z88.0 Allergy status to penicillin; Z88.8 Allergy status to other drugs, medicaments and biological substances; Z88.6 Allergy status to analgesic agent; Z88.2 Allergy status to sulfonamides; Z79.899 Other long term (current) drug therapy

== ENCOUNTER 2019-12-14 05:40 | Inpatient (IN) | payer MEDICAID, OTHER ==
[~2019-12-14] VITALS: Ht 165.1 cm; Wt 77.3 kg
[2019-12-14] MEDS ORDERED: LORazepam 2 MG/ML VIAL IM STA (06:13)
[2019-12-14] MEDS ORDERED: HALOPERIDOL 5MG/ML VIAL (J1630 PER 1) IM STA (06:13)
[2019-12-14] MEDS ORDERED: HALOPERIDOL 5MG/ML VIAL (J1630 PER 1) As Ordered ONE (06:14)
[2019-12-14] MEDS ORDERED: LORazepam 2 MG/ML VIAL As Ordered ONE (06:15)
[2019-12-14 08:57] LABS: HEMATOCRIT 36.8 % (36.0-47.0); MEAN CORPUSCULAR HEMOGLOBIN 29.7 pg (27.0-33.0); MEAN CORPUSCULAR HGB CONC 32.6 g/dl (32.0-36.5); MEAN CORPUSCULAR VOLUME 91.1 fl (80.0-96.0); PLATELET COUNT, AUTOMATED 272 10^3/uL (150-450); RED BLOOD COUNT 4.04 10^6/uL (4.00-5.40); WHITE BLOOD COUNT 6.2 10^3/uL (4.0-10.0)
[2019-12-14 09:25] LABS: ACETAMINOPHEN LEVEL < 2.0 UG/ML (10.0-30.0); ALBUMIN 3.9 GM/DL (3.2-5.2); ALT/SGPT 29 U/L (12-78); BILIRUBIN,DIRECT 0.2 MG/DL (0.0-0.2); BILIRUBIN,TOTAL 0.5 MG/DL (0.2-1.0); BLOOD UREA NITROGEN 14 MG/DL (7-18); CALCIUM LEVEL 8.8 MG/DL (8.5-10.1); CARBON DIOXIDE LEVEL 28 MEQ/L (21-32); CHLORIDE LEVEL 101 MEQ/L (98-107); CREATININE FOR GFR 0.61 MG/DL (0.55-1.30); ETHYL ALCOHOL (ETHANOL) < 0.003 % (0.000-0.010); GLOMERULAR FILTRATION RATE > 60.0 (>60); GLUCOSE, FASTING 82 MG/DL (70-100); SALICYLATE LEVEL 2.3 MG/DL (5.0-30.0); SODIUM LEVEL 136 MEQ/L (136-145); TOTAL PROTEIN 7.1 GM/DL (6.4-8.2)
[2019-12-14 11:37] LABS: AMPHETAMINES LEVEL URINE POSITIVE (NEGATIVE); BARBITURATES URINE NEGATIVE (NEGATIVE); BENZODIAZEPINES URINE NEGATIVE (NEGATIVE); CANNABINOIDS URINE NEGATIVE (NEGATIVE); COCAINE METABOLITE URINE NEGATIVE (NEGATIVE); METHADONE URINE NEGATIVE (NEGATIVE); OPIATES URINE NEGATIVE (NEGATIVE); PHENCYCLIDINE URINE NEGATIVE (NEGATIVE)
[2019-12-14] MEDS ORDERED: AMIT100TA PO (11:47)
[2019-12-14] MEDS ORDERED: GABA600T4 PO (11:47)
[2019-12-14] MEDS ORDERED: CITA20TA6 PO (11:47)
[2019-12-14] MEDS ORDERED: OXCA300T14 PO (11:47)
[2019-12-15] MEDS ORDERED: levETIRAcetam 250MG TABLET (KEPPRA) PO SCH (09:00)
[2019-12-15] MEDS ORDERED: SUCRALFATE 1 GM TAB PO SCH (09:00)
[2019-12-15] MEDS ORDERED: BUPRENORPHINE/NALOXONE 8-2MG SUBLINGUAL TABLET(SUBOXONE) SL SCH ×2 (09:00→21:00)
[2019-12-15] MEDS: GABAPENTIN 300 MG CAP PO SCH ×3 (09:00→21:45)
[2019-12-15] MEDS ORDERED: OXcarbazepine 300 MG TAB PO SCH (09:00)
[2019-12-15] MEDS ORDERED: OMEPRAZOLE 20 MG CAP PO SCH (09:00)
[2019-12-15] MEDS ORDERED: LORATADINE 10 MG TAB PO SCH (09:00)
[2019-12-15] MEDS ORDERED: risperiDONE 2 MG TAB PO SCH (09:00)
[2019-12-15] MEDS ORDERED: CitaloPRAM (CeleXA) 20 MG TAB PO SCH (09:00)
[2019-12-15] MEDS ORDERED: ACETAMINOPHEN TAB 650MG DOSE (2X325MG) PO PRN (16:15)
[2019-12-15] MEDS ORDERED: MOM 30ML SUSPENSION UDC PO PRN (16:15)
[2019-12-15] MEDS ORDERED: SUMAtriptan SUCCINATE 25 MG TAB PO PRN ×2 (16:15→16:30)
[2019-12-15] MEDS ORDERED: MAALOX 30 ML SUSP *UDC PO PRN (16:15)
[2019-12-15] MEDS ORDERED: AMITRIPTYLINE 50 MG TAB PO SCH (21:00)
[2019-12-15 21:25] VITALS: BP 111/65
[2019-12-15] MEDS: OXcarbazepine 300 MG TAB PO SCH (21:45)
[2019-12-15] MEDS: levETIRAcetam 250MG TABLET (KEPPRA) PO SCH (21:46)
[2019-12-15] MEDS: risperiDONE 2 MG TAB PO SCH (21:46)
[2019-12-15] MEDS: AMITRIPTYLINE 50 MG TAB PO SCH (21:46)
[2019-12-15] MEDS: BUPRENORPHINE/NALOXONE 8-2MG SUBLINGUAL TABLET(SUBOXONE) SL SCH (22:55)
[2019-12-15] MEDS: traZODone 50 MG TAB PO PRN (23:09)
[2019-12-16 06:15] VITALS: BP 110/54
[2019-12-16] MEDS ORDERED: SUCRALFATE 1 GM TAB PO SCH (09:00)
[2019-12-16] MEDS ORDERED: BUPRENORPHINE/NALOXONE 8-2MG SUBLINGUAL TABLET(SUBOXONE) SL SCH (09:00)
[2019-12-16] MEDS: BUPRENORPHINE/NALOXONE 8-2MG SUBLINGUAL TABLET(SUBOXONE) SL SCH ×2 (09:57→20:15)
[2019-12-16] MEDS: OXcarbazepine 300 MG TAB PO SCH ×2 (09:58→20:15)
[2019-12-16] MEDS: LORATADINE 10 MG TAB PO SCH (09:58)
[2019-12-16] MEDS: levETIRAcetam 250MG TABLET (KEPPRA) PO SCH ×2 (09:58→20:16)
[2019-12-16] MEDS: OMEPRAZOLE 20 MG CAP PO SCH (09:59)
[2019-12-16] MEDS: GABAPENTIN 300 MG CAP PO SCH ×2 (09:59→20:16)
[2019-12-16] MEDS: CitaloPRAM (CeleXA) 20 MG TAB PO SCH (09:59)
[2019-12-16] MEDS: NICOTINE 21MG/24HR 1 EA TRANSDERMAL TD SCH (10:00)
[2019-12-16] MEDS: risperiDONE 2 MG TAB PO SCH ×2 (10:00→20:15)
--- NOTE | 2019-12-16 14:07 | HPEPDOC ---
[facility] Medical History & Physical Date of Admission Dec 16, 2019 Date of Service: Dec 16, 2019 History and Physical Chief complaint: Presented to the hospital after she reported difficulty at home and hearing voices History of present illness: Patient is a 34-year-old female with a PMHx of Suicidal ideation, Depression / Anxiety, Polysubstance abuse (IV methamphetamine), Hepatitis C, Migraine headaches, Seizure disorder, who presented to the hospital after she reported feeling upset having a hard time living alone and difficulty overcoming the voices that she hears. Patient was admitted to the inpatient mental health unit under the care of psychiatry. Hospitalist service was consulted for medical screening evaluation. Patient reports that she does experience a mild headache. Denies any vomiting, any change in her baseline chest pain, denies shortness of breath, cough. Does report some nausea. Denies any abdominal pain, denies constipation, diarrhea, or urinary discomfort. Has not experience any recent fevers or chills. Past Medical History: Suicidal ideation, Depression / Anxiety, Polysubstance abuse (IV methamphetamine), Hepatitis C, Migraine headaches, Seizure disorder Past Surgical History: Hernia repair Allergies: See below Medications: See below Family History: - Mother with a history of lupus - Father with a history of cirrhosis Social History: - Patient reports that she is an active smoker for 20 years at [address]. Reports occasional alcohol use. Reports active drug use, last use was Sunday - Denies recent travel or sick contacts - Lives with boyfriend - Occupation; unemployed Review of Systems: 10 point review of systems complete, all negative otherwise stated in HPI Physical exam: - Vitals: BP [110/54], HR [82], RR [14], Sat [99%RA], Temp [97.5F] - General: Sitting up in bed, No acute distress, AAOx3 - HEENT: NC, AT, PERRLA - CVS: RRR, +S1S2 - Lungs: Fair air entry bilaterally, No wheezing / rales / rhonchi - Abdomen: Soft, Non-distended, Non-tender - Extremities: No lower extremity edema, No calf tenderness - Neuro: No focal motor or sensory deficit - Skin: No visible rashes Assessment and Plan: Depressive mood - Hx of Suicidal ideation, Depression, Anxiety - Patient was admitted to inpatient mental health unit under the care of psychiatry Polysubstance abuse - Recent history of IV methamphetamine Hepatitis C - Will have outpatient follow-up with infectious disease Migraine headaches - c/w Gabapentin, Sumatriptan Seizure disorder - c/w Keppra Gastrointestinal prophylaxis - c/w Omeptrazole - Will adjust dose of Carafate DVT prophylaxis - Will c/w early ambulation Female brass roller was present for the duration of this history and physical examination Thank you for this consultation; hospital service will now sign off. Please re consult as needed Vital Signs Vital Signs Date Time Temp Pulse Resp B/P (MAP) Pulse Ox O2 Delivery O2 Flow Rate FiO2 12/16/19 06:15 97.5 82 14 110/54 (72) 99 Room Air Home Medications Scheduled Amitriptyline HCl (Amitriptyline HCl) 100 Mg Tablet, 100 MG PO QHS Buprenorphine HCl/Naloxone HCl (Suboxone 8 mg-2 mg Sl Film) 1 Each Film, 2 STRIP SL DAILY Citalopram Hydrobromide (Citalopram HBr) 20 Mg Tablet, 20 MG PO DAILY Gabapentin (Gabapentin) 600 Mg Tablet, 600 MG PO TID Levetiracetam (Keppra) 1,000 Mg Tab, 1,000 MG PO BID Loratadine (Loratadine) 10 Mg Tablet, 10 MG PO DAILY Omeprazole (Omeprazole) 20 Mg Capsule.dr, 20 MG PO DAILY Oxcarbazepine (Oxcarbazepine) 300 Mg Tablet, 300 MG PO BID Risperidone (Risperidone) 2 Mg Tablet, 2 MG PO BID Sucralfate (Sucralfate) 1 Gm Tablet, 1 GM PO BID Scheduled PRN Sumatriptan Succinate (Imitrex) 50 Mg Tablet, 50 MG PO DAILY PRN for MIGRAINE Allergies Coded Allergies: Penicillins (Verified Allergy, Unknown, 12/02/19) dextroamphetamine (Verified Allergy, Unknown, 12/02/19) haloperidol (Verified Allergy, Unknown, 12/02/19) ibuprofen (Verified Allergy, Unknown, 12/02/19) Prefers stronger meds olanzapine (Verified Allergy, Unknown, 12/02/19) sulfamethoxazole (Verified Allergy, Unknown, 12/02/19) trimethoprim (Verified Allergy, Unknown, 12/02/19) ziprasidone (Verified Allergy, Unknown, 12/02/19) A-FIB/CHADSVASC A-FIB History Current/History of A-Fib/PAF?: No JONELLE RUIZ MD Dec 16, 2019 14:07
[2019-12-16] MEDS: SUCRALFATE 1 GM TAB PO SCH ×2 (18:17→20:15)
[2019-12-16] MEDS: AMITRIPTYLINE 50 MG TAB PO SCH (20:15)
[2019-12-16] MEDS: traZODone 50 MG TAB PO PRN (21:51)
[2019-12-17 06:31] VITALS: BP 112/58
[2019-12-17] MEDS: SUCRALFATE 1 GM TAB PO SCH ×4 (07:21→21:28)
[2019-12-17] MEDS: hydrOXYzine 50 MG TAB PO PRN (08:23)
[2019-12-17] MEDS: LORATADINE 10 MG TAB PO SCH (08:23)
[2019-12-17] MEDS: levETIRAcetam 250MG TABLET (KEPPRA) PO SCH ×2 (08:23→21:27)
[2019-12-17] MEDS: NICOTINE 21MG/24HR 1 EA TRANSDERMAL TD SCH (08:23)
[2019-12-17] MEDS: BUPRENORPHINE/NALOXONE 8-2MG SUBLINGUAL TABLET(SUBOXONE) SL SCH ×2 (08:23→21:25)
[2019-12-17] MEDS: OMEPRAZOLE 20 MG CAP PO SCH (08:23)
[2019-12-17] MEDS: CitaloPRAM (CeleXA) 20 MG TAB PO SCH (08:23)
[2019-12-17] MEDS: GABAPENTIN 300 MG CAP PO SCH ×3 (08:23→21:25)
[2019-12-17] MEDS: risperiDONE 2 MG TAB PO SCH ×2 (08:24→21:49)
[2019-12-17] MEDS: OXcarbazepine 300 MG TAB PO SCH ×2 (08:27→21:26)
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
[2019-12-17 17:11] VITALS: BP 119/66
[2019-12-17] MEDS: AMITRIPTYLINE 50 MG TAB PO SCH (21:26)
[2019-12-17] MEDS: traZODone 50 MG TAB PO PRN (21:26)
[2019-12-18] MEDS: GABAPENTIN 300 MG CAP PO SCH ×3 (06:20→20:26)
[2019-12-18 07:21] VITALS: BP 118/62
[2019-12-18] MEDS: SUCRALFATE 1 GM TAB PO SCH ×4 (07:55→20:25)
[2019-12-18] MEDS: OMEPRAZOLE 20 MG CAP PO SCH (08:38)
[2019-12-18] MEDS: BUPRENORPHINE/NALOXONE 8-2MG SUBLINGUAL TABLET(SUBOXONE) SL SCH ×2 (08:38→20:25)
[2019-12-18] MEDS: CitaloPRAM (CeleXA) 20 MG TAB PO SCH (08:38)
[2019-12-18] MEDS: levETIRAcetam 250MG TABLET (KEPPRA) PO SCH ×2 (08:38→20:26)
[2019-12-18] MEDS: OXcarbazepine 300 MG TAB PO SCH ×2 (08:38→20:26)
[2019-12-18] MEDS: risperiDONE 2 MG TAB PO SCH (08:38)
[2019-12-18] MEDS: LORATADINE 10 MG TAB PO SCH (08:38)
[2019-12-18] MEDS: NICOTINE 21MG/24HR 1 EA TRANSDERMAL TD SCH (08:39)
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
[2019-12-18 19:06] VITALS: BP 105/59
[2019-12-18] MEDS: AMITRIPTYLINE 50 MG TAB PO SCH (20:25)
[2019-12-18] MEDS: risperiDONE 3 MG TAB PO SCH (20:25)
[2019-12-19] MEDS: GABAPENTIN 300 MG CAP PO SCH ×3 (06:05→20:02)
[2019-12-19 06:13] VITALS: BP 133/58
[2019-12-19] MEDS ORDERED: cefoTEtan INJ 2GM VIAL (S0074 PER 500MG) As Ordered ONE (07:34)
[2019-12-19] MEDS: SUCRALFATE 1 GM TAB PO SCH ×4 (07:49→20:02)
[2019-12-19] MEDS: risperiDONE 3 MG TAB PO SCH ×3 (09:26→22:43)
[2019-12-19] MEDS: levETIRAcetam 250MG TABLET (KEPPRA) PO SCH ×2 (09:27→20:01)
[2019-12-19] MEDS: LORATADINE 10 MG TAB PO SCH (09:27)
[2019-12-19] MEDS: OXcarbazepine 300 MG TAB PO SCH ×2 (09:28→20:02)
[2019-12-19] MEDS: OMEPRAZOLE 20 MG CAP PO SCH (09:28)
[2019-12-19] MEDS: CitaloPRAM (CeleXA) 20 MG TAB PO SCH (09:28)
[2019-12-19] MEDS: NICOTINE 21MG/24HR 1 EA TRANSDERMAL TD SCH (09:29)
[2019-12-19] MEDS: BUPRENORPHINE/NALOXONE 8-2MG SUBLINGUAL TABLET(SUBOXONE) SL SCH ×2 (09:29→20:01)
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
[2019-12-19] MEDS: hydrOXYzine 50 MG TAB PO PRN (18:00)
[2019-12-19 18:05] VITALS: BP 134/63
[2019-12-19] MEDS: diphenhydrAMINE 50MG CAP PO PRN (19:28)
[2019-12-19] MEDS: AMITRIPTYLINE 50 MG TAB PO SCH (20:02)
[2019-12-19] MEDS: traZODone 50 MG TAB PO PRN (22:19)
[2019-12-20 06:34] VITALS: BP 120/70
[2019-12-20] MEDS: SUCRALFATE 1 GM TAB PO SCH ×5 (06:36→20:25)
[2019-12-20] MEDS: GABAPENTIN 300 MG CAP PO SCH ×3 (06:36→20:25)
[2019-12-20] MEDS: BUPRENORPHINE/NALOXONE 8-2MG SUBLINGUAL TABLET(SUBOXONE) SL SCH ×2 (13:21→20:25)
[2019-12-20] MEDS: OMEPRAZOLE 20 MG CAP PO SCH (13:21)
[2019-12-20] MEDS: NICOTINE 21MG/24HR 1 EA TRANSDERMAL TD SCH (13:21)
[2019-12-20] MEDS: diphenhydrAMINE 50MG CAP PO PRN ×2 (13:22→21:42)
[2019-12-20] MEDS: levETIRAcetam 250MG TABLET (KEPPRA) PO SCH ×2 (13:23→20:25)
[2019-12-20] MEDS: risperiDONE 3 MG TAB PO SCH ×2 (13:23→20:25)
[2019-12-20] MEDS: LORATADINE 10 MG TAB PO SCH (13:23)
[2019-12-20] MEDS: OXcarbazepine 300 MG TAB PO SCH ×2 (13:23→20:25)
[2019-12-20] MEDS: CitaloPRAM (CeleXA) 20 MG TAB PO SCH (13:23)
[2019-12-20 17:23] VITALS: BP 105/54
--- NOTE | 2019-12-20 17:32 | REPVR ---
PROCEDURE INFORMATION: Exam: US Duplex Lower Extremity Veins, Bilateral Exam date and time: 12/20/2019 5:12 PM Age: 34 years old Clinical indication: Pain; Leg, lower; Right; Additional info: Right calf pain TECHNIQUE: Imaging protocol: Real-time duplex ultrasound of the extremities with 2-D grullon scale, color Doppler flow and spectral waveform analysis with image documentation. Complete exam focused on the bilateral lower extremity veins. COMPARISON: No relevant prior studies available. FINDINGS: Right deep veins: Unremarkable. The common femoral, femoral and popliteal veins are patent without thrombus. Normal Doppler waveforms. Normal compressibility and/or augmentation response. Right superficial veins: Saphenofemoral junction is patent without thrombus. Left deep veins: Unremarkable. The common femoral, femoral and popliteal veins are patent without thrombus. Normal Doppler waveforms. Normal compressibility and/or augmentation response. Left superficial veins: Saphenofemoral junction is patent without thrombus. Soft tissues: Unremarkable. IMPRESSION: No evidence of deep vein thrombosis in the lower extremities bilaterally. Electronically signed by: Saturnino Duff On 12/20/2019 17:31:30 PM
[2019-12-20] MEDS: AMITRIPTYLINE 50 MG TAB PO SCH (20:25)
[2019-12-20] MEDS: traZODone 50 MG TAB PO PRN (21:43)
[2019-12-20] MEDS: hydrOXYzine 50 MG TAB PO PRN (23:23)
[2019-12-21] MEDS: GABAPENTIN 300 MG CAP PO SCH ×3 (05:50→20:01)
[2019-12-21 06:54] VITALS: BP 113/76
[2019-12-21] MEDS: CitaloPRAM (CeleXA) 20 MG TAB PO SCH (09:25)
[2019-12-21] MEDS: NICOTINE 21MG/24HR 1 EA TRANSDERMAL TD SCH (09:25)
[2019-12-21] MEDS: BUPRENORPHINE/NALOXONE 8-2MG SUBLINGUAL TABLET(SUBOXONE) SL SCH ×2 (09:26→20:29)
[2019-12-21] MEDS: levETIRAcetam 250MG TABLET (KEPPRA) PO SCH ×2 (09:26→20:01)
[2019-12-21] MEDS: LORATADINE 10 MG TAB PO SCH (09:26)
[2019-12-21] MEDS: OXcarbazepine 300 MG TAB PO SCH ×2 (09:26→20:02)
[2019-12-21] MEDS: OMEPRAZOLE 20 MG CAP PO SCH (09:26)
[2019-12-21] MEDS: SUCRALFATE 1 GM TAB PO SCH ×4 (10:36→20:01)
[2019-12-21] MEDS: risperiDONE 3 MG TAB PO SCH ×2 (10:36→20:01)
[2019-12-21] MEDS: hydrOXYzine 50 MG TAB PO PRN (12:37)
[2019-12-21 18:13] VITALS: BP 109/55
[2019-12-21] MEDS: AMITRIPTYLINE 50 MG TAB PO SCH (20:01)
[2019-12-21] MEDS: diphenhydrAMINE 50MG CAP PO PRN (21:42)
[2019-12-21] MEDS: traZODone 50 MG TAB PO PRN (21:42)
[2019-12-22] MEDS: GABAPENTIN 300 MG CAP PO SCH (06:38)
[2019-12-22] MEDS: SUCRALFATE 1 GM TAB PO SCH ×2 (06:38→11:32)
[2019-12-22 06:47] VITALS: BP 156/74
[2019-12-22] MEDS: NICOTINE 21MG/24HR 1 EA TRANSDERMAL TD SCH (09:00)
[2019-12-22] MEDS: OXcarbazepine 300 MG TAB PO SCH (09:03)
[2019-12-22] MEDS: diphenhydrAMINE 50MG CAP PO PRN (09:03)
[2019-12-22] MEDS: risperiDONE 3 MG TAB PO SCH (09:03)
[2019-12-22] MEDS: levETIRAcetam 250MG TABLET (KEPPRA) PO SCH (09:03)
[2019-12-22] MEDS: CitaloPRAM (CeleXA) 20 MG TAB PO SCH (09:04)
[2019-12-22] MEDS: BUPRENORPHINE/NALOXONE 8-2MG SUBLINGUAL TABLET(SUBOXONE) SL SCH (09:04)
[2019-12-22] MEDS: OMEPRAZOLE 20 MG CAP PO SCH (09:04)
[2019-12-22] MEDS: LORATADINE 10 MG TAB PO SCH (09:04)
[2019-12-22] MEDS ORDERED: GABA-845 PO (09:59)
[2019-12-22] MEDS ORDERED: BENA25CA4 PO (09:59)
[2019-12-22] MEDS ORDERED: RISP3TAB20 PO (09:59)
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
== END 2019-12-22 12:16 | disposition home or self-care (01) | DRG 755 ==
LOC: M ED 05:40 → M ED INP 12-15 16:10 → M PSY 12-15 20:52
PROVIDERS: ADMIT Psychiatry & Neurology Psychiatry; ATTEND Psychiatry & Neurology Psychiatry
DX: F43.20 Adjustment disorder, unspecified (principal); F25.9 Schizoaffective disorder, unspecified; F15.159 Other stimulant abuse with stimulant-induced psychotic disorder, unspecified; G43.909 Migraine, unspecified, not intractable, without status migrainosus; G40.909 Epilepsy, unspecified, not intractable, without status epilepticus; B19.20 Unspecified viral hepatitis C without hepatic coma; Z79.899 Other long term (current) drug therapy; Z88.0 Allergy status to penicillin; Z88.2 Allergy status to sulfonamides; Z88.8 Allergy status to other drugs, medicaments and biological substances

== ENCOUNTER 2019-12-27 03:27 | Emergency (ER) | payer MEDICAID, OTHER ==
[~2019-12-27] VITALS: Ht 152.4 cm; Wt 76.4 kg
[~2019-12-27 03:27] MED LIST changes: +AMIT100TA PO; +CITA20TA6 PO; +GABA600T4 PO; +OXCA300T14 PO; +RISP3TAB20 PO
[2019-12-27 03:28] VITALS: BP 129/62
== END 2019-12-27 04:37 | disposition left against medical advice (07) ==
LOC: M ED 03:27
DX: Z53.21 Procedure and treatment not carried out due to patient leaving prior to being seen by health care provider (principal)

== ENCOUNTER 2020-01-01 00:57 | Emergency (ER) | payer OTHER ==
[~2020-01-01] VITALS: Ht 152.4 cm; Wt 75.0 kg
[2020-01-01 00:59] VITALS: BP 143/89
[2020-01-01] MEDS ORDERED: GI COCKTAIL 50ML BTL(HYOSCYAMINE/MAALOX/LIDOCAINE VISCOUS)(1:3:1) PO ONE (03:30)
[2020-01-02] MEDS ORDERED: BACIOIN7 TOP (14:55)
== END 2020-01-01 03:35 | disposition home or self-care (01) ==
LOC: M ED 00:57
DX: R10.13 Epigastric pain (principal); F15.10 Other stimulant abuse, uncomplicated; E03.9 Hypothyroidism, unspecified; F41.9 Anxiety disorder, unspecified; F20.9 Schizophrenia, unspecified; B19.20 Unspecified viral hepatitis C without hepatic coma; Z79.899 Other long term (current) drug therapy

== ENCOUNTER 2020-01-01 16:07 | Emergency (ER) | payer OTHER ==
[~2020-01-01] VITALS: Ht 152.4 cm; Wt 75.0 kg
[2020-01-01 16:08] VITALS: BP 126/85
[2020-01-02] MEDS ORDERED: BACIOIN7 TOP (14:55)
== END 2020-01-01 18:05 | disposition home or self-care (01) ==
LOC: M ED 16:07
DX: L25.3 Unspecified contact dermatitis due to other chemical products (principal); E03.9 Hypothyroidism, unspecified; B19.9 Unspecified viral hepatitis without hepatic coma; F41.9 Anxiety disorder, unspecified; F20.9 Schizophrenia, unspecified; F15.10 Other stimulant abuse, uncomplicated; Z88.0 Allergy status to penicillin; Z88.2 Allergy status to sulfonamides; Z88.6 Allergy status to analgesic agent; Z88.8 Allergy status to other drugs, medicaments and biological substances; Z79.899 Other long term (current) drug therapy

== ENCOUNTER 2020-01-02 14:23 | Emergency (ER) | payer OTHER ==
[~2020-01-02] VITALS: Ht 157.5 cm; Wt 73.7 kg
[2020-01-02] MEDS ORDERED: BACIOIN7 TOP (14:55)
== END 2020-01-02 15:13 | disposition home or self-care (01) ==
LOC: M ED 14:23
DX: L25.3 Unspecified contact dermatitis due to other chemical products (principal); G43.909 Migraine, unspecified, not intractable, without status migrainosus; G40.909 Epilepsy, unspecified, not intractable, without status epilepticus; B19.20 Unspecified viral hepatitis C without hepatic coma; F17.200 Nicotine dependence, unspecified, uncomplicated; F15.10 Other stimulant abuse, uncomplicated; F41.9 Anxiety disorder, unspecified; F20.9 Schizophrenia, unspecified; Z88.0 Allergy status to penicillin; Z88.2 Allergy status to sulfonamides; Z88.6 Allergy status to analgesic agent; Z88.8 Allergy status to other drugs, medicaments and biological substances; Z79.899 Other long term (current) drug therapy

== ENCOUNTER 2020-01-06 12:00 | Emergency (ER) | payer OTHER ==
[~2020-01-06] VITALS: Ht 152.4 cm; Wt 74.8 kg
[~2020-01-06 12:00] MED LIST changes: +BACIOIN7 TOP
[2020-01-06 14:07] LABS: BASO # 0.1 10^3/uL (0.0-0.2); BASO % 0.7 % (0.0-1.0); EOS # 0.1 10^3/uL (0.0-0.5); EOS % 1.7 % (0.0-3.0); HEMOGLOBIN 13.8 g/dl (12.0-15.5); LYMPH # 3.1 10^3/uL (1.5-5.0); LYMPH % 43.1 % (24.0-44.0); MEAN CORPUSCULAR HEMOGLOBIN 29.7 pg (27.0-33.0); MEAN CORPUSCULAR HGB CONC 32.1 g/dl (32.0-36.5); MEAN CORPUSCULAR VOLUME 92.7 fl (80.0-96.0); MONO # 0.5 10^3/uL (0.0-0.8); MONO % 7.2 % (0.0-5.0); NEUTROPHILS # 3.3 10^3/uL (1.5-8.5); NEUTROPHILS % 46.9 % (36.0-66.0); PLATELET COUNT, AUTOMATED 341 10^3/uL (150-450); RED BLOOD COUNT 4.64 10^6/uL (4.00-5.40); WHITE BLOOD COUNT 7.1 10^3/uL (4.0-10.0)
[2020-01-06 15:00] LABS: HCG, SERUM QUALITATIVE NEGATIVE (NEGATIVE)
[2020-01-06 15:14] LABS: INR 0.93; PROTHROMBIN TIME 12.7 SECONDS (12.5-14.3)
[2020-01-06 15:15] LABS: PARTIAL THROMBOPLASTIN TIME 22.2 SECONDS (24.2-38.5)
[2020-01-06 15:40] LABS: BLOOD UREA NITROGEN 10 MG/DL (7-18); CREATININE FOR GFR 0.76 MG/DL (0.55-1.30); GLOMERULAR FILTRATION RATE > 60.0 (>60); GLUCOSE, FASTING 95 MG/DL (70-100)
--- NOTE | 2020-01-06 15:40 | REP ---
INDICATION: right side numbness. COMPARISON: Comparison brain CT study December 02, 2019.. TECHNIQUE: Helical scanning is acquired. 5 mm axial images were reformatted. Coronal MPR images were generated. FINDINGS: Bone window settings demonstrate an intact bony calvarium. There is no evidence of skull fracture or incidental bony calvarial lesion. The visualized paranasal sinuses appear clear. No intraorbital abnormality is seen. On soft tissue window setting images; the lateral, third, and fourth ventricles are normal in size and position. Onofre-white differentiation pattern is normal above and below the tentorium. There are is no evidence of intracranial hemorrhage. No mass, edema, infarction, or midline shift is seen. No extra-axial fluid collection is appreciated. IMPRESSION: Negative noncontrast head CT. <Electronically signed by Praveen Her > 01/06/20 [id number]
[2020-01-06 15:41] LABS: CALCIUM LEVEL 9.2 MG/DL (8.5-10.1); CARBON DIOXIDE LEVEL 30 mmol/L (20-29); CHLORIDE LEVEL 104 MEQ/L (98-107); CK-MB VALUE MASS 4.4 NG/ML (<3.6); CPK CREATINE PHOSPHOKINASE 558 U/L (26-192); MAGNESIUM LEVEL 2.1 MG/DL (1.8-2.4); MB/CK RELATIVE INDEX 0.78 (< OR =4); PHOSPHORUS LEVEL 3.2 MG/DL (2.5-4.9); POTASSIUM SERUM 4.8 MEQ/L (3.5-5.1); SODIUM LEVEL 139 MEQ/L (136-145); THYROID STIMULATING HORMONE 0.441 uIU/ML (0.358-3.740); TROPONIN I < 0.02 NG/ML (< 0.10)
--- NOTE | 2020-01-06 15:41 | REP ---
INDICATION: right side numbness. COMPARISON: December 02, 2019.. TECHNIQUE: Helical scanning is acquired and overlapping 2 mm high resolution axial images were generated and reviewed at bone and soft tissue window settings. Coronal and sagittal multiplanar re-formations images are generated. FINDINGS: There is no evidence of cervical spine element fracture. No skull base fracture is seen. Cervical vertebral body heights are preserved. Alignment is normal. Facet joints are normally aligned bilaterally at each cervical level on multiplanar re-formations images. There is no evidence of intraspinal or paraspinal hematoma. No extra vertebral abnormality is seen. The patient is tilted somewhat to the left for the current acquisition. There is straightening of the normal cervical lordosis as well. IMPRESSION: Straightening of the normal cervical lordosis, otherwise negative CT study of the cervical spine without contrast. No fracture seen. <Electronically signed by Praveen Her > 01/06/20 1533
[2020-01-06 15:42] LABS: FREE T4 1.11 NG/DL (0.76-1.46)
--- NOTE | 2020-01-06 15:49 | REP ---
INDICATION: CVA. COMPARISON: Comparison chest x-ray December 02, 2019.. TECHNIQUE: Portable upright AP radiograph. FINDINGS: Monitoring electrodes are seen. The lungs are symmetrically aerated and clear. The pleural angles are sharp. Heart size is normal. Pulmonary vasculature is not increased. IMPRESSION: . no active disease. <Electronically signed by Praveen Her > 01/06/20 [id number]
[2020-01-06 16:01] VITALS: BP 130/69
--- NOTE | 2020-01-06 16:45 | ECGEPIP ---
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
== END 2020-01-06 18:03 | disposition left against medical advice (07) ==
LOC: M ED 12:00
DX: R20.0 Anesthesia of skin (principal); G40.909 Epilepsy, unspecified, not intractable, without status epilepticus; B19.20 Unspecified viral hepatitis C without hepatic coma; F25.9 Schizoaffective disorder, unspecified; F41.9 Anxiety disorder, unspecified; F32.9 Major depressive disorder, single episode, unspecified; G43.909 Migraine, unspecified, not intractable, without status migrainosus; E03.9 Hypothyroidism, unspecified; F17.200 Nicotine dependence, unspecified, uncomplicated; Z88.0 Allergy status to penicillin; Z88.2 Allergy status to sulfonamides; Z88.6 Allergy status to analgesic agent; Z88.8 Allergy status to other drugs, medicaments and biological substances; Z79.899 Other long term (current) drug therapy

== ENCOUNTER 2020-01-09 18:24 | Emergency (ER) | payer OTHER ==
[~2020-01-09] VITALS: Ht 152.4 cm; Wt 77.1 kg
[2020-01-09 18:25] VITALS: BP 162/75
--- NOTE | 2020-01-09 19:31 | ECGEPIP ---
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
== END 2020-01-09 20:35 | disposition left against medical advice (07) ==
LOC: M ED 18:24
DX: Z76.5 Malingerer [conscious simulation] (principal); J02.9 Acute pharyngitis, unspecified; R06.02 Shortness of breath; B19.20 Unspecified viral hepatitis C without hepatic coma; F20.9 Schizophrenia, unspecified; F17.200 Nicotine dependence, unspecified, uncomplicated; Z79.899 Other long term (current) drug therapy; Z88.0 Allergy status to penicillin; Z88.8 Allergy status to other drugs, medicaments and biological substances; Z88.6 Allergy status to analgesic agent; Z88.2 Allergy status to sulfonamides

== ENCOUNTER 2020-01-28 08:09 | Emergency (ER) | payer OTHER ==
[~2020-01-28] VITALS: Ht 152.4 cm; Wt 74.4 kg
[~2020-01-28 08:09] MED LIST changes: -CLIN300C5 PO; +CLIN300C6 PO; +RISP-8 PO; +RISP-9 PO; -RISP1TAB3 PO; -RISP2TAB3 PO
[2020-01-28] MEDS ORDERED: CLIN300C6 (08:29)
[2020-01-28 09:48] VITALS: BP 131/95
== END 2020-01-28 09:45 | disposition home or self-care (01) ==
LOC: M ED 08:09
DX: F15.10 Other stimulant abuse, uncomplicated (principal); T14.8XXA Other injury of unspecified body region, initial encounter; Y92.89 Other specified places as the place of occurrence of the external cause; Y93.89 Activity, other specified; Y99.8 Other external cause status; R21 Rash and other nonspecific skin eruption; R00.0 Tachycardia, unspecified; B19.20 Unspecified viral hepatitis C without hepatic coma; G40.909 Epilepsy, unspecified, not intractable, without status epilepticus; F25.9 Schizoaffective disorder, unspecified; K21.9 Gastro-esophageal reflux disease without esophagitis; F17.200 Nicotine dependence, unspecified, uncomplicated; Z88.0 Allergy status to penicillin; Z88.8 Allergy status to other drugs, medicaments and biological substances; Z88.2 Allergy status to sulfonamides; Z88.6 Allergy status to analgesic agent; Z79.899 Other long term (current) drug therapy; Z79.2 Long term (current) use of antibiotics

== ENCOUNTER 2020-02-29 09:45 | Emergency (ER) | payer OTHER ==
[~2020-02-29] VITALS: Ht 157.5 cm; Wt 82.4 kg
[~2020-02-29 09:45] MED LIST changes: +CLIN300C6
[2020-02-29] MEDS ORDERED: NS 1,000 ML IV ONE (10:00)
[2020-02-29 11:30] VITALS: BP 161/74
[2020-02-29 12:18] LABS: HEMATOCRIT 35.7 % (36.0-47.0); HEMOGLOBIN 11.4 g/dl (12.0-15.5); MEAN CORPUSCULAR HEMOGLOBIN 28.5 pg (27.0-33.0); MEAN CORPUSCULAR HGB CONC 31.9 g/dl (32.0-36.5); MEAN CORPUSCULAR VOLUME 89.3 fl (80.0-96.0); PLATELET COUNT, AUTOMATED 276 10^3/uL (150-450); WHITE BLOOD COUNT 8.1 10^3/uL (4.0-10.0)
[2020-02-29 13:01] LABS: ALBUMIN 3.9 GM/DL (3.2-5.2); ALT/SGPT 34 U/L (12-78); BILIRUBIN,DIRECT 0.2 MG/DL (0.0-0.2); BILIRUBIN,TOTAL 0.5 MG/DL (0.2-1.0); BLOOD UREA NITROGEN 15 MG/DL (7-18); CALCIUM LEVEL 8.9 MG/DL (8.5-10.1); CARBON DIOXIDE LEVEL 26 MEQ/L (21-32); CHLORIDE LEVEL 104 MEQ/L (98-107); CPK CREATINE PHOSPHOKINASE 475 U/L (26-192); CREATININE FOR GFR 0.75 MG/DL (0.55-1.30); ETHYL ALCOHOL (ETHANOL) < 0.003 % (0.000-0.010); GLOMERULAR FILTRATION RATE > 60.0 (>60); GLUCOSE, FASTING 98 MG/DL (70-100); POTASSIUM SERUM 4.2 MEQ/L (3.5-5.1); SALICYLATE LEVEL 4.4 MG/DL (5.0-30.0); SODIUM LEVEL 136 MEQ/L (136-145); THYROID STIMULATING HORMONE 0.676 uIU/ML (0.358-3.740); TOTAL PROTEIN 7.3 GM/DL (6.4-8.2)
[2020-02-29 13:02] LABS: ACETAMINOPHEN LEVEL < 2.0 UG/ML (10.0-30.0); HCG, SERUM QUALITATIVE NEGATIVE (NEGATIVE)
== END 2020-02-29 12:37 | disposition home or self-care (01) ==
LOC: M ED 09:45 → EDBD 09:45 → M ED 12:37
DX: F19.10 Other psychoactive substance abuse, uncomplicated (principal); F32.9 Major depressive disorder, single episode, unspecified; F41.9 Anxiety disorder, unspecified; B19.20 Unspecified viral hepatitis C without hepatic coma; G40.909 Epilepsy, unspecified, not intractable, without status epilepticus; Z88.0 Allergy status to penicillin; Z88.8 Allergy status to other drugs, medicaments and biological substances; Z88.6 Allergy status to analgesic agent; Z88.2 Allergy status to sulfonamides; Z79.899 Other long term (current) drug therapy
CPT/HCPCS: 36415; 80048; 80076; 82550; 84443; 84703; 85027; 96360; 96361; 99284; G0480; U0003

== ENCOUNTER 2020-03-12 11:24 | Emergency (ER) | payer OTHER ==
[~2020-03-12] VITALS: Ht 152.4 cm; Wt 80.5 kg
[~2020-03-12 11:24] MED LIST changes: -AMIT25TA PO; +AMIT25TA17 PO; -BUPR200T PO; +BUPR200T2 PO; -LORA-436 PO; +LORA-930 PO; +QUET50TA3 PO; -QUET5TAB PO
--- OUTSIDE RECORDS SUMMARY | 2020-03-12 11:28 | CCD ---
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 12 Active 73525026 Problem Methamphetamine abuse F15.10 Active 940452673 Problem Opioid abuse F11.10 Active 2087096 Problem Opioid use disorder, severe, in sustained remission, on maintenance therapy F11.21 Active 223399227 Problem Cannabis abuse F12.10 Active 01232812 Problem Carpal tunnel syndrome, bilateral G56.03 Active 20740979345340826 Problem Oropharyngeal dysphagia R13.12 Active 60415214 Problem BMI 30.0-30.9,adult Z68.30 Active 033574929 Problem History of drug abuse F19.11 Active 939321766 Problem Binge eating disorder F50.81 Active 100672186 Problem Tongue sore K14.6 Active 58749024 Problem Schizoaffective disorder F25.9 Active 2508493 3 Problem Obesity (BMI 30.0-34.9) E66.9 Active 59765580 5349722 Problem Tobacco dependence F17.200 Active 02708772 Problem Gastroesophageal reflux disease, esophagitis pre sence not specified K21.9 Active 093372292 Problem Substance abuse F19.10 Active 07149733 ALLERGIES Allergen (clinical drug ingredient) Drug/Non Drug Allergy do cumented on EMR Reaction Allergy Type Onset Date Status haloperidol Haldol([facility] Code:[address]-42) Unknown Drug Allergy Active olanzapine Zyprexa([facility] Code:[address]-06) Unknown Drug Allergy Active amoxicillin Amoxicillin([facility] Code:[address]-13) Unknown Drug Aller gy Active penicillin G Penicillin G Sodium([facility] Code:[address]-42) Unknown D rug Allergy Active sulfamethoxazole / trimethoprim Bactrim([facility] Code:[address]-01) Unknown Drug Allergy Active Sulfacet-R Unknown Drug Allergy Active ENCOUNTERS from 1987 to 2020-03-01 Encounter Location Date Provider Diagnosis [address] [address] Feb, Shira Ford IMMUNIZATIONS No Information SOCIAL HISTORY Tobacco Use: Social History Observation Description Date Details (start date - stop date) Current Smoker Sex Assigned At : Social History Observation Description Sex Assigned At Unknown Tobacco Use/Smoking Question Answer Notes Are you a current smoker How many cigarettes a day do you smoke? REASON FOR REFERRAL No Information VITAL SIGNS No information MEDICATIONS Medication SIG (Take, Route, Frequency, Duration) Notes Start Da te End Date Status Diphenhydramine 1 tab Oral twice a day fro EPS Active Risperdal 3 MG 1 tablet Orally twice a day for 30 days June, Active Sumatriptan Succinate 1 daily orally daily and PRN for Migraine. for 14 days Not-Taking Keppra 1000 MG 1 tablet Orally Twice a day for 30 days Active Gabapentin 400 MG 1 capsule Orally three times a day for 30 days Active Sucralfate 1 GM 1 tablet on an empty stomach Orally Twice a day for 30 day(s) Active Celexa 20 MG 1 tablet Orally Once a day for 30 days Active Clonidine HCl 0.2 MG 1 tablet Orally bid prn amxiety for 30 days Nov, Not-Taking Prilosec OTC 20 MG 1 tablet 30 minutes before m orning meal Orally Once a day for 90 day(s) Active Amitriptyline HCl 100 MG 1 tablet at bedtime Orally qhs for 15 days Active Loratadine 10 MG 1 tablet Orally Once a day for 30 day(s) Active Citalopram Hydrobromide 20 MG 1 tablet Orally Once a day Active Buprenorphine HCl 8 MG 2 strips under the tongue an d allow to dissolve Sublingual Once a day Active PROCEDURES No Information RESULTS No Results REASON FOR VISIT records MEDICAL (GENERAL) HISTORY Type Description Date Medical History bilateral carpal tunnel Medical History Seizure Medical History GERD Surgical History hernia repair 2013 Hospitalization History drug overdose 2020 Goals [place] No Information Health Concerns No Information MEDICAL EQUIPMENT No Information MENTAL STATUS No Information FUNCTIONAL STATUS No Information ASSESSMENTS No Information PLAN OF TREATMENT Next Appt Details Provider Name:August Mayo, 2020-03-23 1 1:30:00 AM, [address] [place] [address], [phone], Insurance Providers Payer Name Payer Address Payer Phone Insured Name Patient Relati onship to Insured Coverage Start Date Coverage End Date [employer] - [employer] MEDICA[employer] [address] [facility] [address] Desire,Melissa self
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
--- OUTSIDE RECORDS SUMMARY | 2020-03-12 11:28 | CCD ---
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 12 Active 83503502 Problem Methamphetamine abuse F15.10 Active 172554895 Problem Opioid abuse F11.10 Active 8647337 Problem Opioid use disorder, severe, in sustained remission, on maintenance therapy F11.21 Active 994717529 Problem Cannabis abuse F12.10 Active 40720435 Problem Carpal tunnel syndrome, bilateral G56.03 Active 41189063055154449 Problem Oropharyngeal dysphagia R13.12 Active 98036522 Problem BMI 30.0-30.9,adult Z68.30 Active 845131875 Problem History of drug abuse F19.11 Active 223948847 Problem Binge eating disorder F50.81 Active 584018056 Problem Tongue sore K14.6 Active 41264092 Problem Schizoaffective disorder F25.9 Active 4484085 3 Problem Obesity (BMI 30.0-34.9) E66.9 Active 79296556 8791967 Problem Tobacco dependence F17.200 Active 09815435 Problem Gastroesophageal reflux disease, esophagitis pre sence not specified K21.9 Active 559639563 Problem Substance abuse F19.10 Active 05283088 ALLERGIES Allergen (clinical drug ingredient) Drug/Non Drug Allergy do cumented on EMR Reaction Allergy Type Onset Date Status haloperidol Haldol([facility] Code:[address]-77) Unknown Drug Allergy Active olanzapine Zyprexa([facility] Code:[address]-54) Unknown Drug Allergy Active amoxicillin Amoxicillin([facility] Code:[address]-78) Unknown Drug Aller gy Active penicillin G Penicillin G Sodium([facility] Code:[address]-35) Unknown D rug Allergy Active sulfamethoxazole / trimethoprim Bactrim([facility] Code:[address]-52) Unknown Drug Allergy Active Sulfacet-R Unknown Drug Allergy Active ENCOUNTERS from 1987 to 2020-03-05 Encounter Location Date Provider Diagnosis [address] [address] Feb, Shira Ford IMMUNIZATIONS No Information SOCIAL [...] Information RESULTS No Results REASON FOR VISIT lab results MEDICAL (GENERAL) HISTORY Type Description Date Medical History bilateral carpal tunnel Medical History Seizure Medical History GERD Surgical History hernia repair 2012 Hospitalization History drug overdose 2020 Goals Section No Information Health Concerns No Information MEDICAL EQUIPMENT No Information MENTAL STATUS No Information FUNCTIONAL STATUS No Information ASSESSMENTS No Information PLAN OF TREATMENT Next Appt Details Provider Name:Aliyah Vazquez, 03-09 03:40:00 PM, [address] [place] [address], [phone], Provider Name:Jena Lawson, 2020-03-11 04:00:00 PM, [address] [place] [address], [phone], Provider Name:August Maria Esther, 2020-03-23 1 1:30:00 AM, [address] [place] [address], [phone], Insurance Providers Payer Name Payer Address Payer Phone Insured Name Patient Relati onship to Insured Coverage Start Date Coverage End Date [employer] - [employer] [address] [place] [id number] Melissa Phipps self
--- OUTSIDE RECORDS SUMMARY | 2020-03-12 11:29 | CCD ---
Author Author [facility] Organization [facility] Address Unknown Phone Unavailable Care Team Providers Care Vocational Nurse Lvn Name Role Phone Kori FLORES Unavailable Unavailable Kori FLORES Unavailable Unavailable Kori FLORES Unavailable Unavailable Kori FLORES Unavailable Unavailable Kori FLORES Unavailable Unavailable Kori FLORES Unavailable Unavailable Kori FLORES PA Unavailable Unavailable Kori FLORES Unavailable Unavailable Kori FLORES Unavailable Unavailable Kori FLORES Unavailable Unavailable Kori FLORES Unavailable Unavailable MARK, L GINGER PA Unavailable Unavailable MARK, L GINGER PA Unavailable Unavailable MARK, L GINGER PA Unavailable Unavailable MARK, L GINGER PA Unavailable Unavailable MARK, L GINGER PA Unavailable Unavailable MARK, L GINGER PA Unavailable Unavailable MARK, L GINGER PA Unavailable Unavailable MARK, L GINGER PA Unavailable Unavailable LESTER, MATIAS PA Unavailable Unavailable LESTER, MATIAS PA Unavailable Unavailable LESTER, MATIAS PA Unavailable Unavailable LESTER, MATIAS PA Unavailable Unavailable LESTER, MATIAS PA Unavailable Unavailable LESTER, MATIAS PA Unavailable Unavailable LESTER, MATIAS PA Unavailable Unavailable LESTER, MATIAS PA Unavailable Unavailable LESTER, MATIAS PA Unavailable Unavailable LESTER, MATIAS PA Unavailable Unavailable LESTER, MATIAS PA Unavailable Unavailable LESTER, MATIAS PA Unavailable Unavailable LESTER, MATIAS PA Unavailable Unavailable LESTER, MATIAS PA Unavailable Unavailable LESTER, MATIAS PA Unavailable Unavailable Jeremie SOTO MD Unavailable Unavailable Jeremie SOTO MD Unavailable Unavailable Jeremie SOTO MD Unavailable Unavailable JESICA, @ [facility] Unavailable Unavailable BEHZAD SOTO MD Unavailable Unavailable Ching, Reginah W Kassidy ORNAMENT STITCHER-C Unavailable Unavailabl e Ching, Reginah W Kassidy ORNAMENT STITCHER-C Unavailable Unavailabl e Ching, Reginah W Kassidy ORNAMENT STITCHER-C Unavailable Unavailabl e Ching, Reginah W Kassidy ORNAMENT STITCHER-C Unavailable Unavailabl e Ching, Reginah W Kassidy ORNAMENT STITCHER-C Unavailable Unavailabl e Ching, Reginah W Kassidy ORNAMENT STITCHER-C Unavailable Unavailabl e Ching, Reginalisa W Kassidy ORNAMENT STITCHER-C Unavailable Unavailabl e Ching, Reginah W Kassidy ORNAMENT STITCHER-C Unavailable Unavailabl e Ching, Reginah W Kassidy ORNAMENT STITCHER-C Unavailable Unavailabl e Ching, Reginah W Kassidy ORNAMENT STITCHER-C Unavailable Unavailabl e Ching, Reginah W Kassidy ORNAMENT STITCHER-C Unavailable Unavailabl e Ching, Reginah W Kassidy ORNAMENT STITCHER-C Unavailable Unavailabl e Ching, Reginah W Kassidy ORNAMENT STITCHER-C Unavailable Unavailabl e Ching, Reginah W Kassidy ORNAMENT STITCHER-C Unavailable Unavailabl e Ching, Reginah W Kassidy ORNAMENT STITCHER-C Unavailable Unavailabl e Ching, Reginah W Kassidy ORNAMENT STITCHER-C Unavailable Unavailabl e Ching, Elijah Juareze ORNAMENT STITCHER-C Unavailable Unavailabl e Ching, Elijah Juareze ORNAMENT STITCHER-C Unavailable Unavailabl e Ching, Elijah Juareze ORNAMENT STITCHER-C Unavailable Unavailabl e Ching, Elijah Yi ORNAMENT STITCHER-C Unavailable Unavailabl e Ching, Elijah Yi ORNAMENT STITCHER-C Unavailable Unavailabl e Ching, Elijah Yi ORNAMENT STITCHER-C Unavailable Unavailabl e Ching, Elijah Yi ORNAMENT STITCHER-C Unavailable Unavailabl e Ching, Elijah Yi ORNAMENT STITCHER-C Unavailable Unavailabl e Ching, Elijah Yi ORNAMENT STITCHER-C Unavailable Unavailabl e Ching, Elijah Juareze ORNAMENT STITCHER-C Unavailable Unavailabl e Ching, Elijah Yi ORNAMENT STITCHER-C Unavailable Unavailabl e Ching, Elijah Yi ORNAMENT STITCHER-C Unavailable Unavailabl e Ching, Elijah Juareze ORNAMENT STITCHER-C Unavailable Unavailabl e Ching, Elijah Yi ORNAMENT STITCHER-C Unavailable Unavailabl e Ching, Elijah Yi ORNAMENT STITCHER-C Unavailable Unavailabl e Ching, Elijah Ballyce ORNAMENT STITCHER-C Unavailable Unavailabl e Jeremie ÁLVAREZ MD Unavailable Unavailable Jeremie ÁLVAREZ MD Unavailable Unavailable Lino Marie MD Unavailable Unavailable Lino Marie MD Unavailable Unavailable Lino Marie MD Unavailable Unavailable Lino Marie MD Unavailable Unavailable Lino Marie MD Unavailable Unavailable Lino Marie MD Unavailable Unavailable Lino Marie MD Unavailable Unavailable Lino Marie MD Unavailable Unavailable Lino Marie MD Unavailable Unavailable Lino Marie MD Unavailable Unavailable Lino Marie MD Unavailable Unavailable Lino Marie MD Unavailable Unavailable Lino Marie MD Unavailable Unavailable Lino Marie MD Unavailable Unavailable Lino Marie MD Unavailable Unavailable Lino Marie MD Unavailable Unavailable Lino Marie MD Unavailable Unavailable Lino Marie MD Unavailable Unavailable Lino Marie MD Unavailable Unavailable Lino Marie MD Unavailable Unavailable FrankLino jasmine MD Unavailable Unavailable FrankLino jasmine MD Unavailable Unavailable FrankLino jasmine MD Unavailable Unavailable Frank, Lino Kahn MD Unavailable Unavailable Frank, Lino Kahn MD Unavailable Unavailable Frank, Lino Kahn MD Unavailable Unavailable Frank, Lino Kahn MD Unavailable Unavailable Frank, Lino Kahn MD Unavailable Unavailable Frank, Lino Kahn MD Unavailable Unavailable Frank, Lino Kahn MD Unavailable Unavailable Frank, Lino Kahn MD Unavailable Unavailable Frank, Lino Kahn MD Unavailable Unavailable Frank, Lino Kahn MD Unavailable Unavailable Frank, Lino Kahn MD Unavailable Unavailable Frank, Lino Kahn MD Unavailable Unavailable Frank, Lino Kahn MD Unavailable Unavailable Frank, iLno Kahn MD Unavailable Unavailable Frank, Lino Kahn MD Unavailable Unavailable Frank, Lino Kahn MD Unavailable Unavailable Frank, Lino Kahn MD Unavailable Unavailable Frank, Lino Kahn MD Unavailable Unavailable Frank, Lino Kahn MD Unavailable Unavailable Frank, Lino Kahn MD Unavailable Unavailable Frank, Lino Kahn MD Unavailable Unavailable DIOGENES BUENO MD Unavailable Unavailable Ford, M Shira PA-C Unavailable Unavailable Ford, M Shira PA-C Unavailable Unavailable Ford, M Shira PA-C Unavailable Unavailable Ford, M Shira PA-C Unavailable Unavailable Ford, M Shira PA-C Unavailable Unavailable Ford, M Shira PA-C Unavailable Unavailable Ford, M Shira PA-C Unavailable Unavailable Ford, M Shira PA-C Unavailable Unavailable Ford, M Shira PA-C Unavailable Unavailable Ford, M Shira PA-C Unavailable Unavailable Ford, M Shira PA-C Unavailable Unavailable Ford, M Shira PA-C Unavailable Unavailable Ford, M Shira PA-C Unavailable Unavailable Ford, M Shira PA-C Unavailable Unavailable Ford, M Shira PA-C Unavailable Unavailable Ford, M Shira PA-C Unavailable Unavailable Ford, M Shira PA-C Unavailable Unavailable Ford, M Shira PA-C Unavailable Unavailable Ford, M Shira PA-C Unavailable Unavailable Ford, M Shira PA-C Unavailable Unavailable Ford, M Shira PA-C Unavailable Unavailable Ford, M Shira PA-C Unavailable Unavailable Ford, M Shira PA-C Unavailable Unavailable Navi Batistara ORNAMENT STITCHER Unavailable Unavailable Navi Batistara ORNAMENT STITCHER Unavailable Unavailable Lester, A Mavis ORNAMENT STITCHER Unavailable Unavailable Lester, A Mavis ORNAMENT STITCHER Unavailable Unavailable Lester, A Mavis ORNAMENT STITCHER Unavailable Unavailable Lester, A Mavis ORNAMENT STITCHER Unavailable Unavailable Lester, A Mavis ORNAMENT STITCHER Unavailable Unavailable Lester, A Mavis ORNAMENT STITCHER Unavailable Unavailable Lester, A Mavis ORNAMENT STITCHER Unavailable Unavailable Lester, A Mavis ORNAMENT STITCHER Unavailable Unavailable Lester, A Mavis ORNAMENT STITCHER Unavailable Unavailable Lester, A Mavis ORNAMENT STITCHER Unavailable Unavailable Lester, A Mavis ORNAMENT STITCHER Unavailable Unavailable Lester, A Mavis ORNAMENT STITCHER Unavailable Unavailable Lester, A Mavis ORNAMENT STITCHER Unavailable Unavailable Elster, A Mavis ORNAMENT STITCHER Unavailable Unavailable Lester, A Mavis ORNAMENT STITCHER Unavailable Unavailable Lester, A Mavis ORNAMENT STITCHER Unavailable Unavailable Lester, A Mavis ORNAMENT STITCHER Unavailable Unavailable Lester, A Mavis ORNAMENT STITCHER Unavailable Unavailable Lester, A Mavis ORNAMENT STITCHER Unavailable Unavailable Lester, A Mavis ORNAMENT STITCHER Unavailable Unavailable Lester, A Mavis ORNAMENT STITCHER Unavailable Unavailable Lester, A Mavis ORNAMENT STITCHER Unavailable Unavailable Lester, A Mavis ORNAMENT STITCHER Unavailable Unavailable Lester, A Mavis ORNAMENT STITCHER Unavailable Unavailable Lester, A Mavis ORNAMENT STITCHER Unavailable Unavailable BAY RIOS MD Unavailable Unavailable NON, PHYSICIAN STAFF Unavailable Unavailable TURRIN, EVONNE Unavailable Unavailable TURRIN, EVONNE Unavailable Unavailable TURRIN, EVONNE Unavailable Unavailable TURRIN, EVONNE Unavailable Unavailable HUMBERTO, QUE NATHAN PA-C Unavailable Unavailable HUMBERTO, QUE NATHAN PA-C Unavailable Unavailable HUMBERTO, QUE NATHAN PA-C Unavailable Unavailable HUMBERTO, QUE NATHAN PA-C Unavailable Unavailable HUMBERTO, QUE NATHAN PA-C Unavailable Unavailable HUMBERTO, QUE NATHAN PA-C Unavailable Unavailable HUMBERTO, QUE NATHAN PA-C Unavailable Unavailable HUMBERTO, QUE NATHAN PA-C Unavailable Unavailable HUMBERTO, QUE NATHAN PA-C Unavailable Unavailable MARICHAO Gonzalez MD Unavailable Unavailable MARICHAO Gonzalez MD Unavailable Unavailable MARICHAO Gonzalez MD Unavailable Unavailable MARICHAO Gonzalez MD Unavailable Unavailable MARICHAO Gonzalez MD Unavailable Unavailable ONDINA RAMIREZ MD Unavailable Unavailable ONDINA RAMIREZ MD Unavailable Unavailable ONDINA RAMIREZ MD Unavailable Unavailable ONDINA RAMIREZ MD Unavailable Unavailable ONDINA RAMIREZ MD Unavailable Unavailable ONDINA RAMIREZ MD Unavailable Unavailable ONDINA RAMIREZ MD Unavailable Unavailable ONDINA RAMIREZ MD Unavailable Unavailable Kori EDWARDSIE Unavailable Unavailable DESJARLAIS, KAROLYN COUNTER STITCHER Unavailable Unavailable DESJARLAIS, KAROLYN COUNTER STITCHER Unavailable Unavailable DESJARLAIS, KAROLYN COUNTER STITCHER Unavailable Unavailable DESJARLAIS, KAROLYN COUNTER STITCHER Unavailable Unavailable DESJARLAIS, KAROLYN COUNTER STITCHER Unavailable Unavailable DESJARLAIS, KAROLYN COUNTER STITCHER Unavailable Unavailable DESJARLAIS, KAROLYN COUNTER STITCHER Unavailable Unavailable DESJARLAIS, KAROLYN COUNTER STITCHER Unavailable Unavailable DESJARLAIS, KAROLYN COUNTER STITCHER Unavailable Unavailable JORJE MAHESH Unavailable Unavailable LesterMavis ORNAMENT STITCHER ORNAMENT STITCHER Unavailable Unavailable KULWANTKATRIN Unavailable Unavailable Re-disclosure Warning The records that you are about to access may contain information from federally-assisted alcohol or drug abuse programs. If such information is present, then the following federally mandated warning applies: This information has been disclosed to you from records protected by federal confidentiality rules (42 CFR part 2). The federal rules prohibit you from making any further disclosure of this information unless further disclosure is expressly permitted by the written consent of the person to whom it pertains or as otherwise permitted by 42 CFR part 2. A general authorization for the release of medical or other information is NOT sufficient for this purpose. The Federal rules restrict any use of the information to criminally investigate or prosecute any alcohol or drug abuse patient.The records that you are about to access may contain highly sensitive health information, the redisclosure of which is protected by Article 27-F of the [facility] Public Health law. If you continue you may have access to information: Regarding HIV / AIDS; Provided by facilities licensed or operated by the [facility] Office of Mental Health; or Provided by the [facility] Office for People With Developmental Disabilities. If such information is present, then the following [facility] mandated warning applies: This information has been disclosed to you from confidential records which are protected by state law. State law prohibits you from making any further disclosure of this information without the specific written consent of the person to whom it pertains, or as otherwise permitted by law. Any unauthorized further disclosure in violation of state law may result in a fine or care home sentence or both. A general authorization for the release of medical or other information is NOT sufficient authorization for further disc losure. Encounters Encounter Providers Location Date Indications Data Source(s ) Outpatient Attender: JANE EDWARD 03/11/2020 04:00:00 PM [facility] Preadmit Attender: FAHAD MOONEY 03/11/2020 06:30:0 0 AM [facility] Outpatient Attender: KAROLYN VAN NP 03/09/2020 03: 40:00 PM [facility] Outpatient [facility] 03/03/2020 12:00:00 AM EST eCW1 ([facility]) Outpatient Attender: Shira Becerraferrer: Shira Youngblood PA-C EMERGENCY ROOM-LAB 03/01/2020 04:49:00 PM [facility] - 03/01/2020 04:49:00 PM [facility] Outpatient Attender: Shira Youngblood PA-C 03/01/2020 03:45 :00 PM [facility] Outpatient [facility] 03/01/2020 12:00:00 AM EST eCW1 ([facility]) Outpatient [facility] 03/01/2020 12:00:00 AM EST eCW1 ([facility]) Outpatient Attender: KAROLYN VAN COUNTER STITCHER 02/18/2020 02: 40:00 PM [facility] Outpatient Attender: Kassidy SERRANO 02/18/2020 10:00:0 0 AM [facility] Outpatient [facility] 02/18/2020 12:00:00 AM EST eCW1 ([facility]) Outpatient [facility] 02/10/2020 12:00:00 AM EST eCW1 ([facility]) Outpatient [facility] 02/03/2020 12:00:00 AM EST eCW1 ([facility]) Outpatient [facility] 01/14/2020 12:00:00 AM EST eCW1 ([facility]) Outpatient [facility] 01/06/2020 12:00:00 AM EST eCW1 ([facility]) Outpatient Attender: JOHNATHON PATEL 01/02/2020 10:06:00 A M [facility] Outpatient [facility] 01/02/2020 12:00:00 AM EST eCW1 ([facility]) Outpatient Attender: JANE EDWARD 01/01/2020 02:30:00 PM E [facility] Outpatient Attender: KAROLYN VAN NP 12/24/2019 11: 00:00 AM EDT [facility] Outpatient Attender: Shira Youngblood PA-C 12/24/2019 08:24 :00 AM EDT [facility] Outpatient [facility] 12/24/2019 12:00:00 AM EDT eCW1 ([facility]) Outpatient Attender: JANE EDWARD 12/23/2019 01:54:00 PM E [facility] Outpatient [facility] 12/23/2019 12:00:00 AM EDT eCW1 ([facility]) Outpatient Attender: Mavis DIEGO 12/12/2019 11:3 5:02 AM EDT [facility] Outpatient Attender: JANE EDWARD 12/11/2019 03:00:00 PM E [facility] 12/09/2019 12:00:00 AM EDT eCW1 ([facility]) Outpatient Attender: Mavis PATEL 12/05/2019 01:2 6:01 PM EDT [facility] Inpatient Attender: PRERNA RIOS MDAdmitter: PRERNA Hopson MD ER-3RD 12/05/2019 10:08:00 AM EDT - 12/10/2019 01:07:00 PM EDT [facility]spital Patient discharged. Outpatient Attender: NATHAN PAUL PA-C 12/05/2019 09:03:00 AM EDT [facility] Admission cancelled. Disregard status an d admitted date. Inpatient Attender: BEHZAD SOTO MD Attender: BEHZAD SOTO MDAttender: DIOGENES ÁLVAREZ MDAttender: DIOGENES BUENO MDAdmitter: BEHZAD SOTO MD ER-ICU 12/04/2019 11:06:00 PM EDT - 12/05/2019 10:03:00 AM EDT [facility] Patient discharged. Emergency Attender: GINGER Diazerrer: Melissa Youngblood PA-C EMERGENCY ROOM-ER 12/04/2019 04:21:00 PM EDT - 12/04/2019 08:40:00 PM EDT [facility] Patient discharged. Outpatient Attender: KAROLYN VAN NP 12/04/2019 03: 11:00 PM EDT [facility] Outpatient Attender: Mavis DIEGO FP 11/29/2019 07:0 4:03 PM EDT [facility] Outpatient Attender: JOHNATHON DIEGO FP 11/29/2019 07:04:01 P M EDT [facility] Outpatient Attender: Mavis DIEGO FP 11/24/2019 12:2 9:00 PM EDT [facility] Emergency Attender: EVONNE Lackeyant: STAFF NON 11/07/2019 12:19:00 AM EDT - 11/07/2019 04:20:00 AM EDT [facility] Patient discharged. Outpatient [facility] 11/07/2019 12:00:00 AM EDT eCW1 ([facility]) Outpatient Attender: Mavis DIEGO FP 11/04/2019 02:2 6:02 PM EDT [facility] Outpatient Attender: KAROLYN VAN NP 11/04/2019 11: 40:00 AM EDT [facility] Outpatient Attender: Mavis DIEGO FP 11/02/2019 01:2 6:00 PM EDT [facility] Outpatient Attender: Mavis DIEGO FP 10/31/2019 06:0 2:00 PM EDT [facility] Outpatient Attender: JOHNATHON DIEGO FP 10/31/2019 06:01:59 P M EDT [facility] Outpatient Attender: Mavis DIEGO FP 10/31/2019 06:0 1:03 PM EDT [facility] Outpatient Attender: JOHNATHON DIEGO FP 10/31/2019 06:01:01 P M EDT [facility] Outpatient Attender: Shira Youngblood PA-C 10/31/2019 09:06 :00 AM EDT [facility] Outpatient [facility] 10/31/2019 12:00:00 AM EDT eCW1 ([facility]) Outpatient Attender: JANE EDWARD 10/27/2019 11:00:00 AM E [facility] Outpatient Attender: KAROLYN VAN NP 10/21/2019 03: 20:00 PM EDT [facility] Emergency Attender: EVONNE TURRINConsultant: STAFF NON 10/09/2019 02:09:00 AM EDT - 10/09/2019 03:44:[address] [facility] ital Patient discharged. Outpatient Attender: KATRIN BLUM 10/06/2019 09:37:00 AM ED T [facility] Outpatient Attender: Mavis DIEGO FP 09/25/2019 04:0 9:01 PM EDT [facility] Outpatient Attender: Mavis DIEGO FP 09/25/2019 04:0 7:59 PM EDT [facility] Outpatient Attender: JOHNATHON DIEGO FP 09/23/2019 10:31:00 A M EDT [facility] Outpatient Attender: JOHNATHON DIEGO FP 09/23/2019 10:30:01 A M EDT [facility] Outpatient Attender: JOHNATHON DIEGO FP 09/23/2019 12:02:09 A M EDT [facility] Outpatient Attender: JOHNATHON DIEGO FP 09/22/2019 05:44:02 P M EDT [facility] Outpatient Attender: Mavis DIEGO FP 09/22/2019 05:4 2:59 PM EDT [facility] Outpatient Attender: JOHNATHON DIEGO FP 09/22/2019 02:38:00 P M EDT [facility] Outpatient Attender: Mavis DIEGO FP 09/22/2019 12:0 5:01 PM EDT [facility] Outpatient Attender: JOHNATHON DIEGO FP 09/22/2019 07:56:01 A M EDT [facility] Outpatient Attender: Mavis DIEGO FP 09/16/2019 05:0 8:02 AM EDT [facility] Outpatient Attender: Mavis DIEGO FP 09/14/2019 05:1 9:00 PM EDT [facility] Outpatient Attender: JOHNATHON DIEGO FP 09/14/2019 05:19:00 P M EDT [facility] Outpatient Attender: Mavis DIEGO FP 09/12/2019 11:5 3:00 AM EDT [facility] Outpatient Attender: Mavis DIEGO FP 09/10/2019 11:0 6:01 PM EDT [facility] Outpatient Attender: JOHNATHON DIEGO FP 09/10/2019 11:06:01 P M EDT [facility] Outpatient Referrer: Femi Marie MD 08/15/2019 05:44:00 A M EDT [facility] Outpatient Attender: Mavis DIEGO FP 08/06/2019 09:5 2:01 AM EDT [facility] Outpatient Attender: JOHNATHON DIEGO FP 08/05/2019 07:41:16 P M EDT [facility] Outpatient Attender: Mavis DIEGO FP 08/05/2019 09:2 3:03 AM EDT [facility] Outpatient Attender: JOHNATHON DIEGO FP 08/05/2019 09:23:01 A M EDT [facility] Outpatient Attender: KATRIN BLUM 08/04/2019 09:42:00 AM ED [facility] Outpatient Attender: Mavis DIEGO FP 08/01/2019 10:3 1:00 AM EDT [facility] Outpatient Attender: Mavis DIEGO FP 08/01/2019 10:2 7:02 AM EDT [facility] Outpatient Attender: JOHNATHON DIEGO FP 07/30/2019 11:31:01 A M EDT [facility] Outpatient Attender: KATRIN BLUM 07/07/2019 03:30:00 PM ED [facility] [place] Outpatient Attender: Mavis DIEGO FP 07/04/2019 10:3 3:02 AM EDT [facility] Outpatient Attender: Mavis DIEGO FP 07/03/2019 01:5 2:01 PM EDT [facility] Outpatient Attender: Mavis DIEGO FP 07/02/2019 10:2 8:02 AM EDT [facility] Outpatient Attender: Mavis DIEGO FP 07/01/2019 09:5 7:00 AM EDT [facility] Outpatient Attender: JOHNATHON DIEGO FP 07/01/2019 08:57:00 A M EDT [facility] Outpatient Referrer: Femi Marie MD 07/01/2019 04:55:00 A M EDT [facility] Outpatient Attender: JOHNATHON DIEGO FP 06/30/2019 04:21:00 P M EDT [facility] Outpatient Attender: Mavis DIEGO FP 06/22/2019 06:0 1:59 PM EDT [facility] Outpatient Attender: Mavis Lester DIEGO FP 06/17/2019 03:3 2:01 PM EDT [facility] Outpatient Attender: JOHNATHON Lester JOHNATHON FP 05/27/2019 12:22:00 P M EDT [facility] Outpatient Attender: Mavisra Batista JOHNATHON FP 05/24/2019 11:3 7:01 PM EDT [facility] Outpatient Attender: JOHNATHON Lester JOHNATHON FP 05/20/2019 12:36:01 P M EDT [facility] Outpatient Attender: JOHNATHON DIEGO FP 05/20/2019 11:56:00 A M EDT [facility] Outpatient Attender: JOHNATHON DIEGO FP 05/20/2019 11:42:01 A M EDT [facility] Outpatient Attender: JOHNATHON DIEGO FP 05/01/2019 03:31:00 P M [facility] Outpatient Attender: Mavis DIEGO FP 04/28/2019 10:4 4:01 AM [facility] Outpatient Attender: KATRIN BLUM 04/21/2019 10:29:00 AM [facility] Outpatient Attender: JOHNATHON DIEGO FP 04/15/2019 12:44:01 P M [facility] Outpatient Attender: MAHESH RECINOS 02/24/2019 01:46:00 PM [facility] Outpatient Attender: JANE EDWARD 02/21/2019 10:00:00 AM [facility] Outpatient Attender: JOHNATHON DIEGO FP 02/18/2019 09:01:04 P M [facility] Outpatient Attender: MAHESH RECINOS 02/10/2019 02:18:00 PM [facility] Outpatient Attender: MAHESH RECINOS 01/20/2019 04:26:00 PM [facility] Outpatient Attender: JOHNATHON DIEGO FP 01/16/2019 02:34:00 P M [facility] Inpatient Attender: CHAO GUERRA MDAttdoug harjinder: PRERNA RIOS MDAdmitter: PRERNA RIOS MD ER-3RD 12/23/2018 04:01:00 PM EDT - 12/26/2018 01:22:00 PM EDT [facility] Patient discharged. Inpatient Attender: ONDINA RAMIREZ MDAdmitter: ONDINA RAMIREZ MD E R-ICU 12/19/2018 05:26:00 PM EDT - 12/23/2018 03:42:00 PM EDT [facility] ospital Patient discharged. Emergency Attender: MATIAS BATISTA AL EMERGENCY ROOM-ER 03:51:00 PM EDT - 12/19/2018 04:47:00 PM EDT [facility] Patient discharged. Medications Medication Brand Name Start Date Product Form Dose Route Admi nistrative Instructions Pharmacy Instructions Status Indications Reaction Description Data Source(s) 8-2 mg 03/03/2020 12:00:00 AM EST film [address] TWO FILMS UNDER THE TONGUE EVERY DAY MAXIMUM DAILY DOSE = 2 PLACE TWO FILMS UNDER THE TONGUE EVERY D AY MAXIMUM DAILY DOSE = 2 SOLD: 03/03/2020 [facility] 300 mg 01/27/2020 12:00:00 AM EST capsule 20 TAKE ONE CAPSULE BY MOUTH TWICE A DAY FOR 10 DAYS TAKE ONE CAPSULE BY MOUTH TWICE A DAY FOR 10 DAYS SOLD : 01/27/2020 [facility] Bacitracin 0.5 UNT/MG / Polymyxin B 10 U NT/MG Topical Ointment 500-10,000 unit/gram BACITRACIN ZINC/POLYMYXIN B SULFATE 01/02/2020 12:00:[address] ointment 28 APPLY 1 INCH TOPICALLY TO AFFECT ED AREA(S) THREE TIMES A DAY APPLY 1 INCH TOPICALLY TO AFFECTED AREA(S) THREE TIMES A DAY SOLD: 01/02/2020 [facility] 8-2 mg 01/01/2020 12:00:00 AM EST film 56 PLACE TWO FILMS UNDER THE TONGUE EVERY DAY MAXIMUM DAILY DOSE = [address] TWO FILMS UNDER THE TONGUE EVERY DAY MAXIMUM DAILY DOSE = 2 FILMS SOLD: 01/02/2020 [facility] Clonidine Hydrochloride 0.2 MG Oral Tablet Clonidine H Cl 0.2 MG Clonidine HCl 0.2 MG 12/24/2019 12:00:00 AM EDT 1.0 {tablet} activ e Clonidine HCl 0.2 MG eCW1 ([facility]) Clonidine Hydrochloride 0.2 MG Oral Tablet Clonidine H Cl 0.2 MG Clonidine HCl 0.2 MG 12/24/2019 12:00:00 AM EDT 1.0 {tablet} activ e Clonidine HCl 0.2 MG eCW1 ([facility]) Clonidine Hydrochloride 0.2 MG Oral Tablet Clonidine H Cl 0.2 MG Clonidine HCl 0.2 MG 12/24/2019 12:00:00 AM EDT 1.0 {tablet} activ e Clonidine HCl 0.2 MG eCW1 ([facility]) Clonidine Hydrochloride 0.2 MG Oral Tablet Clonidine H Cl 0.2 MG Clonidine HCl 0.2 MG 12/24/2019 12:00:00 AM EDT 1.0 {tablet} suspe nded Clonidine HCl 0.2 MG eCW1 ([facility]) Clonidine Hydrochloride 0.2 MG Oral Tablet Clonidine H Cl 0.2 MG Clonidine HCl 0.2 MG 12/24/2019 12:00:00 AM EDT 1.0 {tablet} activ e Clonidine HCl 0.2 MG [facility] Clonidine Hydrochloride 0.2 MG Oral Tablet Clonidine H Cl 0.2 MG Clonidine HCl 0.2 MG 12/24/2019 12:00:00 AM EDT 1.0 {tablet} activ e Clonidine HCl 0.2 MG eCW1 ([facility]) Clonidine Hydrochloride 0.2 MG Oral Tablet Clonidine H Cl 0.2 MG Clonidine HCl 0.2 MG 12/24/2019 12:00:00 AM EDT 1.0 {tablet} activ e Clonidine HCl 0.2 MG eCW1 ([facility]) Clonidine Hydrochloride 0.2 MG Oral Tablet Clonidine H Cl 0.2 MG Clonidine HCl 0.2 MG 12/24/2019 12:00:00 AM EDT 1.0 {tablet} suspe nded Clonidine HCl 0.2 MG eCW1 ([facility]) Clonidine Hydrochloride 0.2 MG Oral Tablet Clonidine H Cl 0.2 MG Clonidine HCl 0.2 MG 12/24/2019 12:00:00 AM EDT 1.0 {tablet} suspe nded Clonidine HCl 0.2 MG [facility]CW[facility] Clonidine Hydrochloride 0.2 MG Oral Tablet Clonidine H Cl 0.2 MG Clonidine HCl 0.2 MG 12/24/2019 12:00:00 AM EDT 1.0 {tablet} activ e Clonidine HCl 0.2 MG eCW1 ([facility]) Clonidine Hydrochloride 0.2 MG Oral Tablet Clonidine H Cl 0.2 MG Clonidine HCl 0.2 MG 12/24/2019 12:00:00 AM EDT 1.0 {tablet} activ e Clonidine HCl 0.2 MG eCW1 ([facility]) 300 mg 12/13/2019 12:00:00 AM EDT tablet 60 TAKE ONE TABLET BY MOUTH TWICE A DAY TAKE ONE TABLET BY MOUTH TWICE A DAY SOLD: 12/22/2019 [facility] 100 mg 12/12/2019 12:00:00 AM EDT tablet 30 TAKE ONE TABLET BY MOUTH AT BEDTIME TAKE ONE TABLET BY MOUTH AT BEDTIME SOLD: 12/22/2019 [facility] 2 mg 12/12/2019 12:00:00 AM EDT tablet 60 TAKE ONE TABLET BY MOUTH TWICE A DAY TAKE ONE TABLET BY MOUTH TWICE A DAY SOLD: 12/22/2019 [facility] 2 mg 12/10/2019 12:00:00 AM EDT gum 110 CHEW 1 PIECE EVERY 2 HOUR NEEDED FOR NICOTINE CRAVINGS CHEW 1 PIECE EVERY 2 HOUR NEEDED FOR NICOTINE CRAVI NGS SOLD: 12/22/2019 [facility] 20 mg 12/10/2019 12:00:00 AM EDT tablet 30 TAKE ONE TABLET BY MOUTH EVERY DAY FOR MOOD TAKE ONE TABLET BY MOUTH EVERY DAY FOR MOOD SOLD: 12/22/2019 [facility] 50 mg 11/21/2019 12:00:00 AM EDT capsule 15 TAKE ONE CAPSULE BY MOUTH EVERY MORNING MAXIMUM DAILY DOSE = 1 TAKE ONE CAPSULE BY MOUTH EVERY MORNING MAXIMUM DAILY DOSE = 1 SOLD: 11/21/2019 [facility] 21 mg/24 hr 11/18/2019 12:00:00 AM EDT patch 24 hour 28 APPLY ONE PATCH TO THE SKIN ONCE A DAY APPLY ONE PATCH TO THE SKIN ONCE A DAY SOLD: 11/18/2019 [facility] 1 mg 11/18/2019 12:00:00 AM EDT tablet 14 TAKE ONE TABLET BY MOUTH TWICE A DAY FOR THOUGHTS TAKE ONE TABLET BY MOUTH TWICE A DAY FOR THOUGHTS SOLD : 11/18/2019 [facility] 0.5 mg 11/05/2019 12:00:00 AM EDT tablet 7 TAKE ONE TABLET BY MOUTH AT BEDTIME FOR 7 DAYS MAXIMUM DAILY DOSE = 1 TAKE ONE TABLET BY MOUTH AT BEDTIME FOR 7 DAYS MAXIMUM DAILY DOSE = 1 SOLD: 11/06/2019 [facility] 20 mg 11/05/2019 12:00:00 AM EDT tablet 30 TAKE ONE TABLET BY MOUTH EVERY DAY TAKE ONE TABLET BY MOUTH EVERY DAY SOLD: 11/06/2019 [facility] 2 mg 11/04/2019 12:00:00 AM EDT tablet 90 TAKE 1 TABLET BY MOUTH IN THE MORNING AND 2 TABLETS BY MOUTH IN THE EVENING TAKE 1 TABLET BY MOUTH IN THE MORNING AND 2 TABLETS BY MOUTH IN THE EVENING SOLD: 11/06/2019 [facility] Clonazepam 0.5 MG Oral Tablet Clonazepam 0.5 MG 11/04/2019 12:00:00 AM EDT 1.0 {tablet_at_bedtime} active Clonazepam 0 .5 MG eCW1 ([facility]) Clonazepam 0.5 MG Oral Tablet Clonazepam 0.5 MG 11/04/2019 12:00:00 AM EDT 1.0 {tablet_at_bedtime} active Clonazepam 0 .5 MG eCW1 ([facility]) lisdexamfetamine dimesylate 50 MG Oral Capsule [Vyvans e] Vyvanse 50 MG Vyvanse 50 MG 11/04/2019 12:00:00 AM EDT 1.0 {capsule_in_the_morning} active Vyvanse 50 MG eCW1 ([facility]) Citalopram 20 MG Oral Tablet [Celexa] Celexa 20 MG Celexa 20 MG 11/04/2019 12:00:00 AM EDT 1.0 {tablet} active Ce elise 20 MG eCW1 ([facility]) Citalopram 20 MG Oral Tablet [Celexa] Celexa 20 MG Celexa 20 MG 11/04/2019 12:00:00 AM EDT 1.0 {tablet} active Ce elise 20 MG eCW1 ([facility]) lisdexamfetamine dimesylate 50 MG Oral Capsule [Vyvans e] Vyvanse 50 MG Vyvanse 50 MG 11/04/2019 12:00:00 AM EDT 1.0 {capsule_in_the_morning} active Vyvanse 50 MG eCW1 ([facility]) Citalopram 20 MG Oral Tablet [Celexa] Celexa 20 MG Celexa 20 MG 11/04/2019 12:00:00 AM EDT 1.0 {tablet} active Ce elise 20 MG eCW1 ([facility]) 75 mg 11/02/2019 12:00:00 AM EDT tablet 30 TAKE ONE TABLET BY MOUTH AT BEDTIME TAKE ONE TABLET BY MOUTH AT BEDTIME SOLD: 11/06/2019 [facility] 400 mg 11/02/2019 12:00:00 AM EDT capsule 90 TAKE ONE CAPSULE BY MOUTH THREE TIMES A DAY NEEDED TAKE ONE CAPSULE BY MOUTH THREE TIMES A DAY NEEDED SOLD: 11/06/2019 [facility] 600 mg 10/31/2019 12:00:00 AM EDT tablet 270 TAKE ONE TABLET BY MOUTH THREE TIMES A DAY TAKE ONE TABLET BY MOUTH THREE TIMES A DAY SOLD: 10/31/2019 [facility] 1 gram 10/31/2019 12:00:00 AM EDT tablet 120 TAKE ONE TABLET BY MOUTH FOUR TIMES A DAY TAKE ONE TABLET BY MOUTH FOUR TIMES A DAY SOLD: 10/31/2019 [facility] 10 mg 10/31/2019 12:00:00 AM EDT tablet 30 TAKE ONE TABLET BY MOUTH EVERY DAY FOR ALLERGY SYMPTOMS TAKE ONE TABLET BY MOUTH EVERY DAY FOR A LLERGY SYMPTOMS SOLD: 10/31/2019 [facility] 50 mg 10/31/2019 12:00:00 AM EDT tablet 9 TAKE ONE TABLET BY MOUTH ONCE DAILY WHEN NEEDED FOR MIGRAINE TAKE ONE TABLET BY MOUTH ONCE DAILY WHEN NEEDED FOR MIGRAINE SOLD: 10/31/2019 [facility] 20 mg 10/31/2019 12:00:00 AM EDT capsule,delayed release (DR/EC) 90 TAKE ONE CAPSULE BY MOUTH 30 MINUTES BEFORE MORNING MEAL TAKE ONE CAPSULE BY MOUTH 30 MINUTES BEFORE MORNING MEAL SOLD: 10/31/2019 [facility] 20 mg 10/31/2019 12:00:00 AM EDT tablet 15 TAKE THREE TABLETS BY MOUTH EVERY DAY TAKE THREE TABLETS BY MOUTH EVERY DAY SOLD: 10/31/2019 [facility] 8-2 mg 10/28/2019 12:00:00 AM EDT film 56 PLACE TWO FILMS UNDER THE TONGUE EVERY DAY MAXIMUM DAILY DOSE = 2 PLACE TWO FILMS UNDER THE TONGUE EVERY D AY MAXIMUM DAILY DOSE = 2 SOLD: 10/28/2019 [facility] 100 mg 10/22/2019 12:00:00 AM EDT capsule 60 TAKE TWO CAPSULES BY MOUTH EVERY DAY TAKE TWO CAPSULES BY MOUTH EVERY DAY SOLD: 10/25/2019 [facility] 100 mg 10/22/2019 12:00:00 AM EDT tablet 30 TAKE ONE TABLET BY MOUTH EVERY DAY AT BEDTIME TAKE ONE TABLET BY MOUTH EVERY DAY AT BEDTIME SOLD: 10/25/2019 [facility] 18 mg 10/18/2019 12:00:00 AM EDT capsule 30 TAKE ONE CAPSULE BY MOUTH EVERY DAY DIRECTED TAKE ONE CAPSULE BY MOUTH EVERY DAY DIRECTED SOLD: 10/18/2019 [facility] Clonidine Hydrochloride 0.1 MG Oral Tablet CLONIDINE HCL 10/18/2019 12:00:00 AM EDT tablet 60 TAKE ONE TABLET BY MOUTH TWI CE A DAY TAKE ONE TABLET BY MOUTH TWICE A DAY SOLD: 10/18/2019 [facility] 2 mg 10/18/2019 12:00:00 AM EDT tablet 60 TAKE ONE TABLET BY MOUTH TWICE A DAY TAKE ONE TABLET BY MOUTH TWICE A DAY SOLD: 10/18/2019 [facility] 150 mg 10/18/2019 12:00:00 AM EDT tablet 60 TAKE ONE TABLET BY MOUTH TWICE A DAY TAKE ONE TABLET BY MOUTH TWICE A DAY SOLD: 10/18/2019 [facility] 150 mg 10/13/2019 12:00:00 AM EDT tablet 1 TAKE ONE TABLET BY MOUTH FOR 1 DOSE TAKE ONE TABLET BY MOUTH FOR 1 DOSE SOLD: 10/18/2019 [facility] 300 mg 10/13/2019 12:00:00 AM EDT capsule 30 TAKE ONE CAPSULE BY MOUTH THREE TIMES A DAY TAKE ONE CAPSULE BY MOUTH THREE TIMES A DAY SOLD: 10/18/2019 [facility] 5 % 10/13/2019 12:00:00 AM EDT cream 60 APPLY DIRECTED FOR A SINGLE DOSE APPLY DIRECTED FOR A SINGLE DOSE SOLD: 10/18/2019 [facility] 8-2 mg 09/30/2019 12:00:00 AM EDT film 56 PLACE TWO FILMS UNDER THE TONGUE EVERY DAY MAXIMUM DAILY DOSE = 2 PLACE TWO FILMS UNDER THE TONGUE EVERY D AY MAXIMUM DAILY DOSE = 2 SOLD: 09/30/2019 [facility] 1,000 mg 09/23/2019 12:00:00 AM EDT tablet 60 TAKE ONE TABLET BY MOUTH TWICE A DAY TAKE ONE TABLET BY MOUTH TWICE A DAY SOLD: 09/30/2019 [facility] 20 mg 09/22/2019 12:00:00 AM EDT capsule,delayed release (DR/EC) 30 TAKE ONE CAPSULE BY MOUTH EVERY DAY TAKE ONE CAPSULE BY MOUTH EVERY DAY SOLD: 09/22/2019 [facility] 500 mg 09/22/2019 12:00:00 AM EDT tablet 20 TAKE ONE TABLET BY MOUTH TWICE A DAY FOR 10 DAYS TAKE ONE TABLET BY MOUTH TWICE A DAY FOR 10 DAYS SOLD: 09/22/2019 [facility] 400 mg 09/22/2019 12:00:00 AM EDT capsule 90 TAKE ONE CAPSULE BY MOUTH THREE TIMES A DAY NEEDED TAKE ONE CAPSULE BY MOUTH THREE TIMES A DAY NEEDED SOLD: 09/22/2019 [facility] Bacitracin 0.5 UNT/MG / Polymyxin B 10 U NT/MG Topical Ointment 500-10,000 unit/gram BACITRACIN ZINC/POLYMYXIN B SULF[facility] 09/18/2019 12:00:00 AM E DT ointment 28 APPLY TO AFFECTED AREA(S) 1 INCH TOPICALLY TWO TIMES A DAY APPLY TO AFFECTED AREA(S) 1 INCH TOPICALLY TWO TIMES A DAY SOLD: 09/20/2019 [facility] 1 gram 09/18/2019 12:00:00 AM EDT tablet 40 TAKE ONE TABLET BY MOUTH FOUR TIMES A DAY TAKE ONE TABLET BY MOUTH FOUR TIMES A DAY SOLD: 09/20/2019 [facility] 500 unit/gram 09/10/2019 12:00:00 AM EDT ointment 28 APPLY TO AFFECTED AREA(S) TOPICALLY TWO TIMES A DAY APPLY TO AFFECTED AREA(S) TOPICALLY TWO TIMES A DAY SOLD: 09/20/2019 [facility] 300 mg 09/09/2019 12:00:00 AM EDT capsule 20 TAKE ONE CAPSULE BY MOUTH TWICE A DAY FOR 10 DAYS TAKE ONE CAPSULE BY MOUTH TWICE A DAY FOR 10 DAYS SOLD : 09/09/2019 [facility] 8-2 mg 08/28/2019 12:00:00 AM EDT film [address]ACE TWO FILMS UNDER THE TONGUE EVERY DAY MAXIMUM DAILY DOSE = [address] TWO FILMS UNDER THE TONGUE EVERY DAY MAXIMUM DAILY DOSE = 2 FILMS SOLD: 08/28/2019 [facility] 1 gram 08/01/2019 12:00:00 AM EDT tablet 40 TAKE ONE TABLET BY MOUTH FOUR TIMES A DAY TAKE ONE TABLET BY MOUTH FOUR TIMES A DAY SOLD: 08/01/2019 [facility] 20 mg 08/01/2019 12:00:00 AM EDT capsule,delayed release (DR/EC) 30 TAKE ONE CAPSULE BY MOUTH EVERY DAY TAKE ONE CAPSULE BY MOUTH EVERY DAY SOLD: 08/01/2019 [facility] 300 mg 07/23/2019 12:00:00 AM EDT capsule 30 TAKE ONE CAPSULE BY MOUTH THREE TIMES A DAY FOR 10 DAYS TAKE ONE CAPSULE BY MOUTH THREE TIMES A DAY FOR 10 DAYS SOLD: 07/23/2019 [facility] 8-2 mg 07/23/2019 12:00:00 AM EDT film 56 PLACE TWO FILMS UNDER THE TONGUE EVERY DAY MAXIMUM DAILY DOSE = 2 PLACE TWO FILMS UNDER THE TONGUE EVERY D AY MAXIMUM DAILY DOSE = 2 SOLD: 07/29/2019 [facility] 75 mg 07/22/2019 12:00:00 AM EDT tablet 30 TAKE ONE TABLET BY MOUTH AT BEDTIME TAKE ONE TABLET BY MOUTH AT BEDTIME SOLD: 08/20/2019 [facility] 75 mg 07/22/2019 12:00:00 AM EDT tablet 30 TAKE ONE TABLET BY MOUTH AT BEDTIME TAKE ONE TABLET BY MOUTH AT BEDTIME SOLD: 07/23/2019 [facility] 50 mg 07/21/2019 12:00:00 AM EDT tablet 9 TAKE 1 TABLET BY MOUTH AT THE ONSET OF HEADACHE MAY REPEAT FOR 1 DOSE IF NO RELIEF AFTER 2 HOURS TAKE 1 TABLET BY MOUTH AT THE ONSET OF HEADACHE MAY REPEAT FOR 1 DOSE IF NO RELIEF AFTER 2 HOURS SOLD: 09/20/2019 [facility] 50 mg 07/21/2019 12:00:00 AM EDT tablet 9 TAKE 1 TABLET BY MOUTH AT THE ONSET OF HEADACHE MAY REPEAT FOR 1 DOSE IF NO RELIEF AFTER 2 HOURS TAKE 1 TABLET BY MOUTH AT THE ONSET OF HEADACHE MAY REPEAT FOR 1 DOSE IF NO RELIEF AFTER 2 HOURS SOLD: 07/23/2019 [facility] 1 mg 07/08/2019 12:00:00 AM EDT tablet 60 TAKE ONE TABLET BY MOUTH TWICE A DAY TAKE ONE TABLET BY MOUTH TWICE A DAY SOLD: 08/20/2019 [facility] 1 mg 07/08/2019 12:00:00 AM EDT tablet 60 TAKE ONE TABLET BY MOUTH TWICE A DAY TAKE ONE TABLET BY MOUTH TWICE A DAY SOLD: 07/16/2019 [facility] Risperidone 3 MG Oral Tablet [Risperdal] Risperdal 3 MG Risp erdal 3 MG 07/07/2019 12:00:00 AM EDT 1.0 {tablet} active Risperdal 3 MG eCW1 ([facility]) Risperidone 3 MG Oral Tablet [Risperdal] Risperdal 3 MG Risp erdal 3 MG 07/07/2019 12:00:00 AM EDT 1.0 {tablet} active Risperdal 3 MG eCW1 ([facility]) Risperidone 3 MG Oral Tablet [Risperdal] Risperdal 3 MG Risp erdal 3 MG 07/07/2019 12:00:00 AM EDT 1.0 {tablet} active Risperdal 3 MG eCW1 ([facility]) Risperidone 2 MG Oral Tablet [Risperdal] Risperdal 2 MG Risp erdal 2 MG 07/07/2019 12:00:00 AM EDT 1.0 {tablet} active Risperdal 2 MG eCW1 ([facility]) Risperidone 3 MG Oral Tablet [Risperdal] Risperdal 3 MG Risp erdal 3 MG 07/07/2019 12:00:00 AM EDT 1.0 {tablet} active Risperdal 3 MG eCW1 ([facility]) Risperidone 3 MG Oral Tablet [Risperdal] Risperdal 3 MG Risp erdal 3 MG 07/07/2019 12:00:00 AM EDT 1.0 {tablet} active Risperdal 3 MG eCW1 ([facility]) Risperidone 2 MG Oral Tablet [Risperdal] Risperdal 2 MG Risp erdal 2 MG 07/07/2019 12:00:00 AM EDT 1.0 {tablet} active Risperdal 2 MG eCW1 ([facility]) Risperidone 3 MG Oral Tablet [Risperdal] Risperdal 3 MG Risp erdal 3 MG 07/07/2019 12:00:00 AM EDT 1.0 {tablet} active Risperdal 3 MG eCW1 ([facility]) Risperidone 3 MG Oral Tablet [Risperdal] Risperdal 3 MG Risp erdal 3 MG 07/07/2019 12:00:00 AM EDT 1.0 {tablet} active Risperdal 3 MG eCW1 ([facility]) Risperidone 3 MG Oral Tablet [Risperdal] Risperdal 3 MG Risp erdal 3 MG 07/07/2019 12:00:00 AM EDT 1.0 {tablet} active Risperdal 3 MG eCW1 ([facility]) Risperidone 3 MG Oral Tablet [Risperdal] Risperdal 3 MG Risp erdal 3 MG 07/07/2019 12:00:00 AM EDT 1.0 {tablet} active Risperdal 3 MG eCW1 ([facility]) Risperidone 3 MG Oral Tablet [Risperdal] Risperdal 3 MG Risp erdal 3 MG 07/07/2019 12:00:00 AM EDT 1.0 {tablet} active Risperdal 3 MG eCW1 ([facility]) Risperidone 2 MG Oral Tablet [Risperdal] Risperdal 2 MG Risp erdal 2 MG 07/07/2019 12:00:00 AM EDT 1.0 {tablet} active Risperdal 2 MG eCW1 ([facility]) Risperidone 3 MG Oral Tablet [Risperdal] Risperdal 3 MG Risp erdal 3 MG 07/07/2019 12:00:00 AM EDT 1.0 {tablet} active Risperdal 3 MG eCW1 ([facility]) 8-2 mg 06/27/2019 12:00:00 AM EDT film 56 PLACE TWO FILMS UNDER THE TONGUE EVERY DAY MAXIMUM DAILY DOSE = 2 PLACE TWO FILMS UNDER THE TONGUE EVERY D AY MAXIMUM DAILY DOSE = 2 SOLD: 06/27/2019 [facility] 400 mg 06/23/2019 12:00:00 AM EDT capsule 90 TAKE 1 CAPSULE BY MOUTH THREE TIMES A DAY NEEDED TAKE 1 CAPSULE BY MOUTH THREE TIMES A DAY NEEDED SO LD: 07/29/2019 [facility] 400 mg 06/23/2019 12:00:00 AM EDT capsule 90 TAKE 1 CAPSULE BY MOUTH THREE TIMES A DAY NEEDED TAKE 1 CAPSULE BY MOUTH THREE TIMES A DAY NEEDED SO LD: 08/26/2019 [facility] 400 mg 06/23/2019 12:00:00 AM EDT capsule 90 TAKE 1 CAPSULE BY MOUTH THREE TIMES A DAY NEEDED TAKE 1 CAPSULE BY MOUTH THREE TIMES A DAY NEEDED SO LD: 06/27/2019 [facility] 300 mg 06/19/2019 12:00:00 AM EDT capsule 30 TAKE ONE CAPSULE BY MOUTH THREE TIMES A DAY TAKE ONE CAPSULE BY MOUTH THREE TIMES A DAY SOLD: 06/19/2019 [facility] 20 mg 06/18/2019 12:00:00 AM EDT capsule,delayed release (DR/EC) 30 TAKE ONE CAPSULE BY MOUTH EVERY DAY TAKE ONE CAPSULE BY MOUTH EVERY DAY SOLD: 06/18/2019 [facility] 137 mcg (0.1 %) 06/18/2019 12:00:00 AM EDT aerosol,spray 30 USE 2 SPRAYS IN EACH NOSTRIL TWO TIMES A DAY USE 2 SPRAYS IN EACH NOSTRIL TWO TIMES A DAY SOLD: 06/18/2019 [facility] 20 mg 06/15/2019 12:00:00 AM EDT tablet 15 TAKE THREE TABLETS BY MOUTH EVERY DAY TAKE THREE TABLETS BY MOUTH EVERY DAY SOLD: 06/18/2019 [facility] Famotidine 20 MG Oral Tablet FAMOTIDINE 06/15/2019 12:00:00 AM EDT tab let 10 TAKE ONE TABLET BY MOUTH EVERY DAY TAKE ONE TABLET BY MOUTH EVERY DAY SOLD: 06/18/2019 [facility] Clonidine Hydrochloride 0.1 MG Oral Tablet CLONIDINE HCL 06/06/2019 12:00:00 AM EDT tablet 60 TAKE ONE TABLET BY MOUTH TWI CE A DAY TAKE ONE TABLET BY MOUTH TWICE A DAY SOLD: 08/20/2019 [facility] 80 mg 06/06/2019 12:00:00 AM EDT tablet 30 TAKE ONE TABLET BY MOUTH EVERY DAY WITH FOOD TAKE ONE TABLET BY MOUTH EVERY DAY WITH FOOD SOLD: 06/09/2019 [facility] Clonidine Hydrochloride 0.1 MG Oral Tablet CLONIDINE HCL 06/06/2019 12:00:00 AM EDT tablet 60 TAKE ONE TABLET BY MOUTH TWI CE A DAY TAKE ONE TABLET BY MOUTH TWICE A DAY SOLD: 06/09/2019 [facility] 50 mg 06/06/2019 12:00:00 AM EDT tablet 30 TAKE ONE TABLET BY MOUTH AT BEDTIME TAKE ONE TABLET BY MOUTH AT BEDTIME SOLD: 06/09/2019 [facility] 8-2 mg 05/29/2019 12:00:00 AM EDT film 56 PLACE TWO FILMS UNDER THE TONGUE EVERY DAY, MAXIMUM DAILY DOSE = 2 PLACE TWO FILMS UNDER THE TONGUE EVERY D AY, MAXIMUM DAILY DOSE = 2 SOLD: 05/30/2019 [facility] 100 mg 05/20/2019 12:00:00 AM EDT capsule 10 TAKE ONE CAPSULE BY MOUTH TWICE A DAY FOR 5 DAYS TAKE ONE CAPSULE BY MOUTH TWICE A DAY FOR 5 DAYS SOLD: 05/22/2019 [facility] 8-2 mg 05/01/2019 12:00:00 AM EST film 56 [address]ACE 2 FILMS UNDER THE TONGUE ONCE DAILY MAXIMUM DAILY DOSE = 2 PLACE 2 FILMS UNDER THE TONGUE ONCE WALT Y MAXIMUM DAILY DOSE = 2 SOLD: 05/01/2019 [facility] 80 mg 04/30/2019 12:00:00 AM EST tablet 30 TAKE ONE TABLET BY MOUTH EVERY DAY WITH FOOD TAKE ONE TABLET BY MOUTH EVERY DAY WITH FOOD SOLD: 04/30/2019 [facility] Famotidine 20 MG Oral Tablet FAMOTIDINE 04/28/2019 12:00:00 AM EST tab let 30 TAKE ONE TABLET BY MOUTH EVERY DAY TAKE ONE TABLET BY MOUTH EVERY DAY SOLD: 04/28/2019 [facility] 50 mg 04/21/2019 12:00:00 AM EST tablet 30 TAKE ONE TABLET BY MOUTH AT BEDTIME TAKE ONE TABLET BY MOUTH AT BEDTIME SOLD: 04/22/2019 [facility] 18 mg 04/21/2019 12:00:00 AM EST capsule 30 TAKE ONE CAPSULE BY MOUTH EVERY DAY DIRECTED TAKE ONE CAPSULE BY MOUTH EVERY DAY DIRECTED SOLD: 04/22/2019 [facility] Clonidine Hydrochloride 0.1 MG Oral Tablet CLONIDINE HCL 04/21/2019 12:00:00 AM EST tablet 60 TAKE ONE TABLET BY MOUTH TWI CE A DAY TAKE ONE TABLET BY MOUTH TWICE A DAY SOLD: 04/22/2019 [facility] 8-2 mg 04/04/2019 12:00:00 AM EST film 56 DISSOLVE 2 FILMS DAILY MAXIMUM DAILY DOSE = 2 FILMS DISSOLVE 2 FILMS DAILY MAXIMUM DAILY DOSE = 2 FILMS SO LD: 04/04/2019 [facility] 300 mg 03/21/2019 12:00:00 AM EST capsule 30 TAKE ONE CAPSULE BY MOUTH THREE TIMES A DAY FOR 10 DAYS TAKE ONE CAPSULE BY MOUTH THREE TIMES A DAY FOR 10 DAYS SOLD: 03/21/2019 [facility] 50 mg 03/18/2019 12:00:00 AM EST tablet 9 TAKE ONE TABLET BY MOUTH AT ONSET OF HEADACHE, MAY REPEAT IN 2 HOURS TAKE ONE TABLET BY MOUTH AT ONSET OF HEADACHE, MAY REPEAT IN 2 HOURS SOLD: 03/18/2019 [facility] 50 mg 03/18/2019 12:00:00 AM EST tablet 9 TAKE ONE TABLET BY MOUTH AT ONSET OF HEADACHE, MAY REPEAT IN 2 HOURS TAKE ONE TABLET BY MOUTH AT ONSET OF HEADACHE, MAY REPEAT IN 2 HOURS SOLD: 04/15/2019 [facility] 400 mg 03/18/2019 12:00:00 AM EST capsule 90 TAKE ONE CAPSULE BY MOUTH THREE TIMES A DAY NEEDED TAKE ONE CAPSULE BY MOUTH THREE TIMES A DAY NEEDED SOLD: 04/15/2019 [facility] 400 mg 03/18/2019 12:00:00 AM EST capsule 90 TAKE ONE CAPSULE BY MOUTH THREE TIMES A DAY NEEDED TAKE ONE CAPSULE BY MOUTH THREE TIMES A DAY NEEDED SOLD: 03/18/2019 [facility] 400 mg 03/18/2019 12:00:00 AM EST capsule 90 TAKE ONE CAPSULE BY MOUTH THREE TIMES A DAY NEEDED TAKE ONE CAPSULE BY MOUTH THREE TIMES A DAY NEEDED SOLD: 05/13/2019 [facility] 50 mg 03/08/2019 12:00:00 AM EST tablet 30 TAKE ONE TABLET BY MOUTH AT BEDTIME TAKE ONE TABLET BY MOUTH AT BEDTIME SOLD: 03/18/2019 [facility] 8-2 mg 03/06/2019 12:00:00 AM EST film [address] 2 [facility] UNDER THE TONGUE ONCE DAILY MAXIMUM DAILY DOSE = 2 PLACE 2 [facility] UNDER THE TONGUE ONCE DAILY MAXIMUM DAILY DOSE = 2 SOLD: 03/06/[address] [facility] 150 mg 02/25/2019 12:00:00 AM EST tablet 60 TAKE ONE TABLET BY MOUTH TWICE A DAY TAKE ONE TABLET BY MOUTH TWICE A DAY SOLD: 02/25/2019 [facility] 80 mg 02/25/2019 12:00:00 AM EST tablet 30 TAKE ONE TABLET BY MOUTH EVERY DAY WITH FOOD TAKE ONE TABLET BY MOUTH EVERY DAY WITH FOOD SOLD: 02/25/2019 [facility] 80 mg 02/25/2019 12:00:00 AM EST tablet 30 TAKE ONE TABLET BY MOUTH EVERY DAY WITH FOOD TAKE ONE TABLET BY MOUTH EVERY DAY WITH FOOD SOLD: 04/04/2019 [facility] 25 mg 02/25/2019 12:00:00 AM EST tablet 30 TAKE 1 TABLET BY MOUTH NEEDED FOR ANXIETY DAILY TAKE 1 TABLET BY MOUTH NEEDED FOR ANXIETY DAILY [facility] 40 mg 02/12/2019 12:00:00 AM EST tablet 30 TAKE ONE TABLET BY MOUTH EVERY DAY WITH FOOD TAKE ONE TABLET BY MOUTH EVERY DAY WITH FOOD SOLD: 02/13/2019 [facility] 50 mg 02/11/2019 12:00:00 AM EST tablet 30 TAKE ONE TABLET BY MOUTH AT BEDTIME TAKE ONE TABLET BY MOUTH AT BEDTIME SOLD: 02/11/2019 [facility] 50 mg 02/11/2019 12:00:00 AM EST tablet 30 TAKE ONE TABLET BY MOUTH AT BEDTIME NEEDED TAKE ONE TABLET BY MOUTH AT BEDTIME NEEDED SOLD: [facility] 12-3 mg 02/06/2019 12:00:00 AM EST film 28 PLACE ONE FILM UNDER THE TONGUE EVERY DAY MAXIMUM DAILY DOSE = 1 PLACE ONE FILM UNDER THE TONGUE EVERY DA Y MAXIMUM DAILY DOSE = 1 SOLD: 02/06/2019 [facility] 2 mg 02/03/2019 12:00:00 AM EST tablet 7 TAKE ONE TABLET BY MOUTH EVERY DAY TAKE ONE TABLET BY MOUTH EVERY DAY SOLD: 02/03/2019 [facility] 50 mg 02/03/2019 12:00:00 AM EST tablet 7 TAKE ONE TABLET BY MOUTH AT BEDTIME TAKE ONE TABLET BY MOUTH AT BEDTIME SOLD: 02/03/2019 [facility] 50 mg 02/03/2019 12:00:00 AM EST tablet 7 TAKE ONE TABLET BY MOUTH AT BEDTIME NEEDED TAKE ONE TABLET BY MOUTH AT BEDTIME NEEDED SOLD: [facility] 1,000 mg 01/01/2019 12:00:00 AM EST tablet 60 TAKE ONE TABLET BY MOUTH TWICE A DAY TAKE ONE TABLET BY MOUTH TWICE A DAY SOLD: 06/19/2019 [facility] 1,000 mg 01/01/2019 12:00:00 AM EST tablet 60 TAKE ONE TABLET BY MOUTH TWICE A DAY TAKE ONE TABLET BY MOUTH TWICE A DAY SOLD: 03/05/2019 [facility] 1,000 mg 01/01/2019 12:00:00 AM EST tablet 60 TAKE ONE TABLET BY MOUTH TWICE A DAY TAKE ONE TABLET BY MOUTH TWICE A DAY SOLD: 04/15/2019 [facility] 400 mg 12/18/2018 12:00:00 AM EDT capsule 90 TAKE ONE CAPSULE BY MOUTH THREE TIMES A DAY NEEDED TAKE ONE CAPSULE BY MOUTH THREE TIMES A DAY NEEDED SOLD: 01/14/2019 [facility] 400 mg 12/18/2018 12:00:00 AM EDT capsule 90 TAKE ONE CAPSULE BY MOUTH THREE TIMES A DAY NEEDED TAKE ONE CAPSULE BY MOUTH THREE TIMES A DAY NEEDED SOLD: 02/13/2019 [facility] Insurance Providers Payer name Policy type / Coverage type Policy ID Covered democrat ID Covered democrat's relationship to zhang Policy Zhang Plan Information [employer] MCDHMO [id number] SP [id number] [facility] MEDICAID [id number] S [id number] [facility] [id number] S [id number] [facility] MEDICAID [id number] S [id number] [facility] MEDICAID [id number] S [id number] [facility]) O [id number] S [id number] Managed Care - [facility] Community Plan P [id number] S [id number] Medicaid S [id number] [facility] [id number] SP [id number] [facility] [id number] S [id number] [employer] MCDHMO [id number] SP [id number] [employer] [phone] MEDICAID [id number] SP [id number] Managed Care - [facility] Community Plan P [id number] S [id number] MEDICAID [id number] S [id number] MEDICAID [id number] S [id number] MEDICAID PROF FEES [id number] MEDICAID [id number] S [id number] [facility] [id number] S [id number] Medicaid S [id number] S [id number] Managed Care - Community Plan [facility] P [id number] S [id number] [facility] DEPT [id number] SP [id number] Medicaid P [id number] S [id number] SELF PAY ONLY [id number] SP [id number] [id number] SP [id number] [facility] DEPT [id number] SP [id number] SELF PAY UNAVAILABLE SP UNAVAILA BLE Self Pay P UNAVAILABLE S UNA[place]ILA BLE Medicaid P [id number] S [id number] [facility] S UNAVAILA BLE Managed Care - Community Plan [facility] P [id number] S [id number] Medicaid S UNAVAILABLE S UNAVAILA BLE Problems, Conditions, and Diagnoses Code Display Name Description Problem Type Effective Dates Data Source(s) K14.6 [id number] Tongue sore Problem 03/01/2020 12:00:[address] [place] ([facility]) F19.11 [id number] History of drug abuse Problem 03/01/2020 12: 00:00 AM EST eCW1 ([facility]) F19.10 [id number] Substance abuse Problem 12/24/2019 12:00:00 AM EDT eCW1 ([facility]) F50.81 [id number] Binge eating disorder Problem 11/04/2019 12: 00:00 AM EDT eCW1 ([facility]) K21.9 [id number] Gastroesophageal ref lux disease, esophagitis presence not specified Problem 10/31/2019 12:00:00 AM EDT eCW1 ([facility]) F17.200 [id number] Tobacco dependence Problem 10/31/2019 12:00: 00 AM EDT eCW1 ([facility]) E66.9 [id number] Obesity (BMI 30.0-34.9) Problem 0 10/31/2019 12:00:00 AM ED[facility] Z68.30 046913903 BMI 30.0-30.9,adult Problem 10/31/2019 12:00 :00 AM EDT eCW1 ([facility]) R13.12 35480963 Oropharyngeal dysphagia Problem 10/31/2019 1 2:00:00 AM EDT eCW1 ([facility]) G56.03 [id number] Carpal tunnel syndrome, bilateral Pr oblem 10/31/2019 12:00:00 AM EDT eCW1 ([facility]) K92.0 Hematemesis Hematemesis - cause unknown 020 05:42:44 PM EDT [facility] I80.9 Phlebitis and thrombophlebitis of unspec ified site Phlebitis and thrombophlebitis of unspecified site 05/20/2019 12:34:09 PM EDT [facility] right AC and right tibia Z13.29 Encounter for screening for other suspec keven endocrine disorder ENCOUNTER FOR SCREENING FOR OTH SUSPECTE Diagnosis 03/01/2020 04:49:00 PM [facility] Z82.61 Family history of arthritis FAMILY HISTORY OF ARTHRITI S Diagnosis 03/01/2020 03:45:00 PM [facility] Z13.220 Encounter for screening for lipoid disor ders ENCOUNTER FOR SCREENING FOR LIPOID DISORDERS Diagnosis 03/01/2020 03:45:[facility] Z[facility].69 Family history of other dise ases of the musculoskeletal system and connective tissue FAMILY HISTORY OF DISEASES OF THE MS SYS AND CONNE Diagnosis 03/01/2020 03:45:00 PM [facility] R50.9 Fever, unspecified FEVER, UNSPECIFIED Diagnosis 05/2020 03:45:00 PM [facility] 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, in r emission OTHER PSYCHOACTIVE SUBSTANCE ABUSE, IN REMISSION Diagnosis 03/01/2020 03:45:00 PM [facility] G56.03 CARPAL TUNNEL SYNDROME, BILATERAL UPPER LIMBS CARPAL TUNNEL SYNDROME, BILATERAL UPPER LIMBS Diagnosis 03/01/2020 03:45:00 PM [facility] james K21.9 Gastro-esophageal reflux disease without esophagitis GASTRO-ESOPHAGEAL REFLUX DISEASE WITHOUT ESOPHAGITIS Diagnosis 02/18/2020 10:00:00 AM [facility] F11.21 Opioid dependence, in remission OPIOID DEPENDENC E, IN REMISSION Diagnosis 01/01/2020 02:30:00 PM [facility] F15.10 Other stimulant abuse, uncomplicated OTH ER STIMULANT ABUSE, UNCOMPLICATED Diagnosis 01/01/2020 02:30:00 PM [facility] l F43.12 Post-traumatic stress disorder, chronic POST-TRAUMATIC STRESS DISORDER, CHRONIC Diagnosis 01/01/2020 02:30:00 PM [facility] l F90.0 Attention-deficit hyperactivity disorder , predominantly inattentive type ATTN-DEFCT HYPERACTIVITY DISORDER, PREDOM INATTENT Diagnosis 06/2019 02:30:00 PM [facility] F50.81 BINGE EATING DISORDER BINGE EATING DISORDER Diagnosis 01/01/2020 02:30:00 PM [facility] F25.9 Schizoaffective disorder, unspecified SC HIZOAFFECTIVE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 dissection. [facility] also hypotensive into the 80s systolic received a liter bolus andblood pressure improved into the low 90s to 100s. Patient was transferred [facility] for further management. I evaluated patient inthe ICU patient remains obtunded unable to give any history. Nurse reportedpatient woke up few times and was able to answer simple questions. Patient hadreceived flumazenil and Narcan and Ativan at [facility] before arrival [facility].Past Medical/Surgical HistoryPast Medical/Surgical HistoryMedical ProblemsAcute respiratory failure (Acute)Drug abuse (Chronic)Drug overdose (Acute)SchizophreniaSeizure disorder (Chronic, 12/20/18)Reconciled Home Med ListSee Reconciled Home Medication ListAllergiesCoded Allergies:NSAIDS (Non-Steroidal Anti-Inflamma (12/19/18)Penicillins (12/19/18)allopurinol (12/19/18)amoxicillin (12/19/18) aspirin (12/19/18)Family history Unable to obtain as patient is obtunded.Social History Unable to obtain as patient is obtunded.Health maintenance Unable to obtain as patient is obtundedReview of SystemsUnable to obtainUnable to obtain as patient is obtundedExamVital SignsVital Signs-24 [id number] 98.2Pulse 62Resp 16B/P 91/52B/P MeanPulse Ox 98O2 DeliveryO2 Flow [id number] ExaminationGeneral Appearance no acute distress, ObtundedHead normocephalicENT moist mucosal membranesEye AssessementAssessment: Ecchymosis on right upper eyelidNeck no JVDCardiovascular regular rate, no murmur, no gallop, no rub, normal heart soundsRespiratory clear to auscultation, no distress, aerating well, symmetricexpansionAbdomen soft, no distention, normal bowel sounds, no guarding, no reboundUrinary no bladder distention, no flank painGenitourinary (male) no flank painExtremities no clubbing, no cyanosis, no edema, normal pulses, Multiple oldbruises on bilateral lower extremities.Neurological Obtunded.Skin AssessmentSkin dry, warmPsych/Mental Status Unable to assess as patient is obtunded.Data ReviewLaboratory DataRecent Labs-48 hours12/03 2344 2344ChemistrySodium PendingPotassium PendingChloride PendingSerum Bicarbonate PendingAnion Gap PendingBUN PendingCreatinine PendingGlucose PendingPOC Glucose (70 - 110 mg/dL) 80Plasma Lactic Acid Saleem PendingCalcium PendingPhosphorus PendingMagnesium PendingTotal Bilirubin PendingAST PendingALT PendingAlkaline Phosphatase PendingTroponin I PendingTotal Protein PendingAlbumin PendingGlobulin PendingAlbumin/Globulin Ratio PendingHematologyWBC (4.0 - 10.5 x10E3/uL) 7.56RBC (4.20 - 5.40 x10E6/uL) 3.54 LHgb (12.0 - 16.0 g/dL) 10.5 LHct (37.0 - 47.0 %) 32.9 LMCV (81.0 - 99.0 fL) 92.9MCH (27.0 - 31.0 pg) 29.7MCHC (32.7 - 35.6 g/dL) 31.9 LRDW (11.5 - 14.0 %) 13.1Plt Count (150 - 450 x10E3/uL) 301MPV (6.9 - 9.5 fl) 9.8 HImmature Gran % (Auto) (0.1 - 2.0 %) 0.3Neut % (Auto) (34 - 64 %) 57.9Lymph % (Auto) (25 - 45 %) 31.7Mono % (Auto) (1.7 - 10.6 %) 7.8Eos % (Auto) (0.4 - 7.0 %) 1.9Baso % (Auto) (0.1 - 2.0 %) 0.4Abs Immat Gran (auto) (0.0 - 0.1 x10E3/uL) 0.02Absolute Neuts (auto) (1.2 - 7.6 x10E3/uL) 4.38Absolute Lymphs (auto) (1.0 - 3.5 x10E3/uL) 2.40Absolute Monos (auto) (0.1 - 1.0 x10E3/uL) 0.59Absolute Eos (auto) (0.1 - 0.7 x10E3/uL) 0.14Absolute Basos (auto) (0.0 - 0.1 x10E3/uL) 0.03Nucleated RBC % (auto) (0 %) 0ToxicologyLevetiracetam PendingLabs from [facility] reviewed.ImagingCT head done at [facility].Impression:No acute cranial abnormality.CT pulmonary angiogram done at [facility].Impression:No evidence of pulmonary embolic disease.Cardiology/EKGEKG: Done at [facility].Sinus rhythm rate of 83 bpm. Very minimal (less than 1 mm )ST depression inlead II, V4 and V5.Assessment/PlanDiagnosis/Problem1. Drug overdoseStatus AcuteA&PPatient injected bath salts and also reported taking Xanax and unknown amountof gabapentin. Expressed suicidal ideations as documented at [facility].-Poison control contacted.-Monitor on telemetry.-IV fluids.-Check troponins.-Monitor electrolytes.-Supportive care.2. Seizure disorderStatus ChronicOnset Date 12/20/18A&PCheck Keppra level continue Keppra as necessary.CQM VTE HISTORYVTE HISTORYPrior VTE? NoDATE SIGNED: 12/05/19 Electronically SignedTIME SIGNED: 707 BEHZAD SOTO MD Name Value Range Interpretation Code Description Data [place] rce(s) Supporting Document(s) ID Date Data Source [id number] 12/04/2019 11:26:00 PM EDT [facility] Name Value Range Interpretation Code Description Data [place] rce(s) Supporting Document(s) FGLU 80 mg/dL 70-110 [facility] ID Date Data Source [id number] 12/04/2019 09:28:00 PM EDT [facility] Patient: COME, BRUNA Observation Repor t - [facility].VisitID: [id number] [place] [address] [phone], FRegistration Date/Time: 12/04/2019 15:46 Weight:68.4 kg (E). Height/Length:60 inches (E). BMI:29.5 PAST HISTORYProblems:Seizure.Drug Poisoning. Medications:SUMAtriptan Succinate Oral, as needed, last dose unk.Amitriptyline HCl Oral 100 mg, daily every PM, last dose unk.RisperDAL Oral 2 mg, 2x a day, last dose unk.Gabapentin Oral 400 mg, daily, last dose unk.PriLOSEC Oral 20 mg, daily, last dose unk.Carafate Oral 1 gm, 2x a day, last dose unk.Keppra Oral (Tablet 1000 mg), 2x a day, last dose unk.cloNIDine HCl Oral 0.1 mg, 2x a day, last dose unk.Trileptal Oral 150 mg, 2x a day, last dose unk.Strattera Oral 18 mg, daily, last dose unk.Suboxone Sublingual (Film 8-2 mg), 2x a day, last dose unk. Allergies:Penicillin.Sulfacetamide. FAMILY HISTORYNegative. No significant family medical history. (Electronically signed by Marie Euceda 12/04/2019 20:43) Name Value Range Interpretation Code Description Data [facility] rce(s) Supporting Document(s) ID Date Data Source [id number] 12/04/2019 08:43:00 PM EDT [facility] AP CHEST DATE OF EXAMINATION: 12/04/2019 16:10 EDT CHEST 1 VIEW INDICATION: Overdose COMPARISON: 12/19/2018 TECHNIQUE: A single AP film of the chest was obtained. FINDINGS: There is a circular ringlike opacity overlying the superiormediastinum between the clavicular heads. This may be on the patient's skinsurface. Recommend correlation. Lung volumes are low. Cardiac silhouette isupper normal. There is patchy atelectatic change bilaterally. There is minimalperibronchial thickening however no edema. No pneumothorax . IMPRESSION: Patchy atelectatic change bilaterally. Pneumonia cannot be excluded.Minimal bronchial thickening No pneumothorax. Electronically signed in [id number] by: Jefferson Parikh M.D. 12/04/2019 20:38 EDT Name Value Range Interpretation Code Description [facility](s) ID Date Data Source [id number] 12/04/2019 07:09:00 PM EDT [facility] Name Value Range Interpretation Code Description [facility] Supporting Document(s) SARS COV2 TRP [facility] This lab was ordered by [facility] and reported by [facility]. ID Date Data Source [id number] 12/04/2019 08:26:00 PM EDT [facility] TSYSORDER [id number] Name Value Range Interpretation Code Description Data [facility] rce(s) Supporting Document(s) Adenovirus Not Detected Detected [facility] Coronavirus 229E Not Detected Detected [facility] Coronavirus HKU1 Not Detected Detected Not [facility] Coronavirus NL63 Not Detected Detected Not [facility] Coronavirus OC43 Not Detected Detected Not [facility] Sars Cov 2 Not Detected Detected Not [facility] Human Metapneumovirus Not Detected Detected Not [facility] Human Rhinovirus Not Detected Detected Not [facility] Influenza A Not Detected Detected [facility] Influenza B Not Detected Detected Not [facility] Parainfluenza Virus 1 Not Detected Detected Not [facility] Parainfluenza Virus 2 Not Detected Detected Not [facility] Parainfluenza Virus 3 Not Detected Detected Not [facility] Parainfluenza Virus 4 Not Detected Detected Not [facility] Respiratory Syncytial Virus Not Detected Detected Not [facility] Bordetella parapertus ([id number]) Not Detected Detected Not [facility] Bordetella pertussis (ptxP) Not Detected Detected Not [facility] Chlamydia pneumoniae Not Detected Detected Not [facility] Mycoplasma pneumoniae Not Detected Detected Not [facility] The Above results have been determined b y using the PressflipArray system.FilmArray is an automated in vitro diagnostic system thatutilizes nested multiplex Polymerase Chain Reaction (PCR)and high-resolution melting analysis to detect and identifymultiple nucleic acid targets from clinical specimens. ID Date Data Source [id number] 12/04/2019 06:58:00 PM EDT [facility] l CT Chest and CT Pulmonary Angiogram DATE OF EXAMINATION: 12/04/2019 18:[address] PULMONARY ANGIOGRAM Indication: Overdose, shortness of breath Comparison: None Contrast: 75 cc Omnipaque 300 Technique: Following administration of intravenous contrast, a CT scan wasperformed from the thoracic inlet through the upper abdomen. Simultaneously, adynamic study of the pulmonary arterial system was performed. One or more of the following dose reduction techniques were utilized ineffectively lowering the radiation dose for this examination: Automated ExposureControl, Adjustment of the mA and/or kV according to patient size, or Iterativereconstruction. Findings: Angiogram: There is no evidence of pulmonary embolic disease. No fillingdefects are visualized in the pulmonary arterial system. There is no evidenceof aortic dissection. CT Chest: There is dependent atelectatic change at the lung bases posteriorly.There is no pleural or pericardial effusion. There are no enlarged nodes. There are no adrenal masses. Impression: No evidence of pulmonary embolic disease. Electronically signed in PS360 by: Jefferson Parikh M.D. 12/04/2019 18:52 EDT Name Value Range Interpretation Code Description Data [place] rce(s) Supporting Document(s) ID Date Data Source [id number] 12/04/2019 06:56:00 PM EDT [facility] DATE OF EXAMINATION: 12/04/2019 18:03 EDT BRAIN W/O CONTRAST INDICATION: Overdose This CT exam was performed using the following dose reduction techniques:Automated exposure control, adjustment of mA and/or kV according to thepatient's size, and use of iterative reconstruction technique. COMPARISON: None. The basal cisterns, cortical sulci and ventricles are normal. The grullon- whitematter differentiation is normal. There is no mass effect or shift. Nointracranial bleeds. No intra or extra-axial collections. The visualizedparanasal sinuses are well aerated. IMPRESSION: No acute intracranial abnormality Electronically signed in [id number] by: Jefferson Parikh M.D. 12/04/2019 18:51 EDT Name Value Range Interpretation Code Description Data [place] rce(s) Supporting Document(s) ID Date Data Source [id number] 12/04/2019 05:47:00 PM EDT [facility] TSYSORDER [id number] Name Value Range Interpretation Code Description Data [place] rce(s) Supporting Document(s) URINE AMPHETAMINES NEGATIVE <1000 ng/mL [facility] THC,URINE NEGATIVE <50 ng/mL [facility] URINE BARBITURATES NEGATIVE <300 ng/mL [facility] PCP,URINE NEGATIVE <25 ng/mL [facility] COCAINE, URINE NEGATIVE <300 ng/mL [facility] URINE,OPIATES NEGATIVE <300 ng/mL [facility] URINE,TCA POSITIVE <1000 ng/mL H [facility] URINE BENZODIAZEPINES NEGATIVE <300 ng/mL [facility] THESE TESTS ARE PERFORMED USING AN IMMU NOASSAY FOR THEQUALITATIVE DETERMINATION OF THE PRESENCE OF THE MAJORMETABOLITES OF DRUGS OF ABUSE. THESE TESTS ARE ONLY ASCREENING AND NOT CONFIRMATORY. CLINICAL CONSIDERATION ANDPROFESSIONAL JUDGMENT MUST BE APPLIED TO ANY DRUG OF ABUSETEST RESULT. ID Date Data Source [id number] 12/04/2019 05:30:00 PM EDT [facility] TSYSORDER [id number] Name Value Range Interpretation Code Description Data [place] rce(s) Supporting Document(s) HCG URINE NEGATIVE NEGATIVE [facility] ID Date Data Source [id number] 12/04/2019 05:39:00 PM EDT [facility] TSYSORDER [id number] Name Value Range Interpretation Code Description Data [place] rce(s) Supporting Document(s) URINE COLOR. LIGHT YELLOW [facility] URINE APPEARANCE CLEAR [facility] URINE GLUCOSE (UA) NEGATIVE mg/dL NEGATIVE [facility] URINE BILIRUBIN NEGATIVE NEGATIVE [facility] URINE KETONE NEGATIVE mg/dL NE[facility]IVE [facility],URINE 1.010 1.001-1.035 [facility] URINE BLOOD NEGATIVE NEGATIVE [facility] PH,URINE 7.5 5.0-9.0 [facility] URINE PROTEIN NEGATIVE mg/dL NEGATIVE [facility] UROBILINOGEN NORMAL(0.2-1) mg/dL 0-1 R [facility] URINE NITRATE NEGATIVE NEGATIVE [facility] URINE LEUKOCYTE ESTERASE NEGATIVE NEGATIVE [facility] ID Date Data Source [id number] 12/04/2019 06:09:00 PM EDT [facility] Name Value Range Interpretation Code Description Data [place] rce(s) Supporting Document(s) CKMB 1.8 ng/ml 0.0-3.6 [facility] ID Date Data Source [id number] 12/04/2019 04:47:00 PM EDT [facility] Name Value Range Interpretation Code Description Data [place] rce(s) Supporting Document(s) SALICYLATE 3.5 mg/dL 2.8-20.0 [facility] ID Date Data Source [id number] 12/04/2019 04:47:00 PM EDT [facility] Name Value Range Interpretation Code Description Data [place] rce(s) Supporting Document(s) ETHYL ALCOHOL 0.00 % 0-0.01 [facility] ID Date Data Source [id number] 12/04/2019 04:47:00 PM EDT [facility] Name Value Range Interpretation Code Description Data [place] rce(s) Supporting Document(s) ACETAMINOPHEN LEVEL < 2.0 mcg/mL 10-30 L [facility]ital ID Date Data Source [id number] 12/04/2019 04:47:00 PM EDT [facility] Name Value Range Interpretation Code Description Data [place] rce(s) Supporting Document(s) GLUCOSE 81 mg/dL 74-106 [facility] BLOOD UREA NITROGEN 10 mg/dL 7-18 [facility] CREATININE 0.7 mg/dL 0.6-1.0 [facility] SODIUM 139 mmol/L 136-145 [facility] POTASSIUM 4.3 mmol/L 3.5-5.1 [facility] CHLORIDE 102 mmol/L 98-107 [facility] CO2 33 mmol/L 21-32 H [facility] CALCIUM 9.2 mg/dL 8.5-10.1 [facility] ANION GAP 4.0 mmol/L 5-12 L [facility] GLOMERULAR FILTRATION RATE >90 mL/min [facility] GFR IS CALCULATED IN mL/min/1.73m2 LISANDRA L FUNCTION: >90MILDLY DECREASED: 60-89MILDY TO MODERATELY DECREASED: 45-59 MODERATELY TO SEVERELY DECREASED: 30-44SEVERELY DECREASED: 15-29RENAL FAILURE: <15 AST 40 U/L 15-37 H [facility] ALT 27 U/L 12-78 [facility] ALKALINE PHOSPHATASE 68 U/L 46-116 [facility] pital TOTAL BILIRUBIN 0.3 mg/dL 0.2-1.0 [facility] TOTAL PROTEIN 7.4 g/dl 6.4-8.2 [facility] ALBUMIN 3.9 gm/dL 3.4-5.0 [facility] ID Date Data Source [id number] 12/04/2019 04:46:00 PM EDT [facility] l TSYSORDER [id number] Name Value Range Interpretation Code Description Data [place] rce(s) Supporting Document(s) AMMONIA 39 umol/L 11-32 H [facility] ID Date Data Source [id number] 12/04/2019 04:19:00 PM [facility] TSYSORDER [id number] Name Value Range Interpretation Code Description Data [place] rce(s) Supporting Document(s) WHITE BLOOD COUNT 9.8 K/mm3 4.0-10.0 [facility]LOOD [facility] 4.11 M/mm3 4.00-5.50 [facility] HEMOGLOBIN 12.3 gm/dL 12.0-16.0 [facility] HEMATOCRIT 37.9 % 36.0-48.8 [facility] MEAN CELL VOLUME 92.2 fl 80-96 [facility] MEAN CORPUSCULAR HEMOGLOBIN 29.9 pg 27.0-31.0 [facility] MEAN CORPUSCULAR HGB CONC 32.5 g/dl 32.0-36.0 [facility] RED CELL DISTRIBUTION WIDTH 13.0 % 10.0-14.5 [facility] PLATELET COUNT 368 K/mm3 172-450 [facility] MEAN PLATELET VOLUME 9.5 fl 9.0-13.0 [facility] pital GRAN % 71.0 % 50-80.0 [facility] IG% 0.2 % 0.0-0.2 [facility] LYMPH % 20.5 % 25.0-50.0 L [facility] MONO % 7.1 % 2.0-10.0 [facility] EOS % 1.0 % 0-5.0 [facility] BASO % 0.2 % 0.0-2.0 [facility] GRAN # 7.0 K/mm3 2.0-8.00 [facility] IG# 0.0 K/mm3 0.0-0.2 [facility] LYMPH # 2.0 K/mm3 1.0-5.0 [facility] MONO # 0.7 K/mm3 0.10-1.20 [facility] EOS # 0.1 K/mm3 0.0-0.5 [facility] BASO # 0.0 K/mm3 0.0-0.2 [facility] ID Date Data Source [id number] 12/11/2019 08:09:00 PM EDT [facility] Name Value Range Interpretation Code Description Data [place] rce(s) Supporting Document(s) LEVETIRACETAM, S <1.0 ug/mL 10.0-40.0 L [facility] Verified by repeat analysisThis test was developed and its performance characteristicsdetermined by [facility]. It has not been cleared orapproved by the Food and Drug Administration.Performed at: [address] [id number] Director: Robyn Julio MD, Phone: [phone] ID Date Data Source [id number] 12/11/2019 08:05:00 PM EDT [facility] Name Value Range Interpretation Code Description Data [place] rce(s) Supporting Document(s) Levetiracetam, S 10.0-40.0 Below low normal [facility] Verified by repeat analysisThis test was developed and its performance characteristicsdetermined by [facility]. It has not been cleared or approvedby the Food and Drug Administration. ID Date Data Source [id number] 12/04/2019 05:04:00 PM EDT [facility] l TSYSORDER [id number] Name Value Range Interpretation Code Description Data [place] rce(s) Supporting Document(s) DDIMER 0.74 mg/LFEU 0.19-0.60 H [facility] ID Date Data Source [id number] 12/04/2019 12:00:00 AM EDT [facility] l Name Value Range Interpretation Code Description Data [place] rce(s) Supporting Document(s) 2019 Novel Coronavirus RNA [facility] This lab was ordered by [facility] L aboratory and reported by [facility] Laboratory. ID Date Data Source [id number] 11/07/2019 12:19:00 AM EDT [facility] 1 OrderSheet [facility] Emergency Department [address] [place] [address] Phone #: ext- [phone] 11/07/2019 00:19 Patient: BRUNA LEE Sex: F : 1985 Age: 34yWEIGHT:78.9 kg (S)ALLERGIES: Penicillins, Sulfa AntibioticsCHIEF COMPLAINT: nauseaDIAGNOSIS: Drug abuse, Nausea, Normal Exam, AnxietyLAB ORDERSOrder Description Priority Entered Acknowledged InitialedCBC w Diff STAT 01:11/07/2019 Ack'd: 01:22 Meme 02:24 Evonne Iyer R.N.NJayro MNeo;CMP STAT 01:11/07/2019 Ack'd: 01:22 Meme 02:24 Evonne Iyer R.N.NJayro Chao;HCG Serum Qual STAT 01:11/07/2019 Ack'd: 01:22 Meme 02:24 Evonne Iyer R.N.NJayro MNeo;CPK STAT 01:11/07/2019 Ack'd: 01:22 Meme 02:24 Meme Darryl Dayana, Evonne Maldonado RJayroNJayro Maldonado RJayroNJayro MNeo;Urine Drug Screen STAT 01:11/07/2019 Ack'd: 01:22 Meme 02:24 Meme Darryl Dayana, Evonne Maldonado RJayroNJayro Maldonado RJayroNJayro MNeo;Urinalysis (Clean STAT 01:11/07/2019 Ack'd: 01:22 Meme 02:24 Meme BlairCatch) Dayana, Evonne Maldonado RJayroNJayro Maldonado RJayroNJayro MNeo;DIAGNOSTIC STUDY ORDERSOrder Description Priority Entered Acknowledged InitialedMEDICATION/IV/DRIP/FLUID ORDERSOrder Description Priority Entered Acknowledged InitialedNS IV 1000 mL 01:01 11/07/2019 Ack'd: 01:22 Meme 02:26 Meme BlairBolus: : Bolus 1000 Dayana, Evonne Maldonado R.N. Joel R.N.mL (X1) M.D.;Zofran 4 mg IVP X 1 01:01 11/07/2019 Ack'd: 01:22 Meme 02:27 Meme Blairdose: 4 mg (NOW Turbenita, Evonne Maldonado R.N. Joel R.N.x1) M.D.; 2 [facility] [address] [place] [address] Phone #: ext- [phone] 11/07/2019 00:19 Patient: BRUNA LEE Sex: F : 1985 Age: 34yGENERAL ORDERSOrder Description Priority Entered Acknowledged Initialed[Electronically signed by Mara Gonzalez R.N. (04:20 11/07/2019)][Electronically signed by Evonne Anne M.D. (05:23 11/07/2019)][Electronically locked by Mara Gonzalez R.N. (04:20 11/07/2019)] Name Value Range Interpretation Code Description Data [place]mira rce(s) Supporting Document(s) ID Date Data Source [id number] 11/07/2019 12:19:00 AM EDT [facility] 1 Medication Reconciliation Report [facility] Emergency Department [address] [place] [address] Phone #: ext- [phone] 11/07/2019 00:19 Patient: BRUNA LEE Sex: F : 1985 Age: 34yWeight: 78.9 kgHeight/Length: 60 in.BMI: 34.0ALLERGIES: Penicillins, Sulfa AntibioticsThe patient's Home Medications are listed below:CONTINUE TAKING THE FOLLOWING MEDICATIONS: Amitriptyline HCl Oral clonazePAM Oral, new rx starts tomorrow Gabapentin Oral Keppra Oral RisperDAL Oral Stomach pill, name unknown Strattera Oral Suboxone Sublingual (8-2 mg), dailyThe source(s) of the original Home Medication information:Not obtained.The following Medications were given to the patient in the Emergency Department:IV NS IV Fluids bolus 0, then 999 mL/hr, administered: 11/07/2019 2:26:00 AMZofran [IVP] IVP 4 mg, administered: 11/07/2019 2:22:00 AMThe following Medications were prescribed to the patient:None. Name Value Range Interpretation Code Description Data [place] rce(s) Supporting Document(s) ID Date Data Source [id number] 11/07/2019 12:19:00 AM EDT [facility] 1 Medication Administration Record [facility] Emergency Department [address] [place] [address] Phone #: ext [phone] 11/07/2019 00:19 Patient: BRUNA LEE Sex: F : 1985 Age: 34yWeight: 78.9 kgHeight/Length: 60 inBMI: 34ALLERGIES: Penicillins, Sulfa Antibiotics Date/Time Medication Administered Medication OrderedStart IV NS NS IV 1000 mL Bolus: : Bolus [id number] 11/07/2019 Dose: IV Fluids mL (X1)Meme Maldonado R.N. Rate: 999 mL/hr---- Dispensed: 1000 mL bagStop Site: #1 left wrist03:55 11/07/2019Mara Gonzalez R.N.Given ZOFRAN [IVP] (ONDANSETRON HCL) Zofran 4 mg IVP X 1 dose: 4 mg02:22 11/07/2019 Dose: 4 mg IVP (NOW x1)Meme Maldonado R.N. Site: #1 left wrist Name Value Range Interpretation Code Description Data [place] rce(s) Supporting Document(s) ID Date Data Source [id number] 11/07/2019 12:19:00 AM EDT [facility] 1 General Instructions [facility] Emergency Department [address] [place] [address] Phone #: ext- [phone] 11/07/2019 00:19 Patient: BRUNA LEE Sex: F : 1985 Age: 34yMild nausea (resolved). No vomiting.Normal exam while in the ED and at discharge.Anxiety reaction.Chronic substance abuse- methamphetamines, ecstasy with anxiety.INSTRUCTIONSDrink plenty of fluids. Avoid alcohol and NSAIDS. NSAIDS include aspirin, ibuprofen (Advil) and naprox en(Aleve). Avoid fatty, fried/greasy, lactose-containing (such as milk, cheese and ice cream), salty and spicyfoods. No alcohol. Do not smoke.Warnings: Further evaluation is necessary. It is very important to follow up with a healthcare provider.GENERAL WARNINGS: Return or contact your physician immediately if your condition worsens orchanges unexpectedly, if not improving as expected, or if other problems arise. SPECIFICALLY, return ifyou develop pain in the abdomen, pelvis, back or shoulder, fever, vomiting, the inability to keep fluidsdown, blood in vomitus, blood in diarrhea, fainting or lightheadedness.Your Current Medications: Your current home medications have been reviewed.CONTINUE TAKING THE FOLLOWING MEDICATIONS:Amitriptyline HCl Oral.clonazePAM Oral : new rx starts tomorrow.Gabapentin Oral.Keppra Oral.RisperDAL Oral.Stomach pill, name unknown*.Strattera Oral.Suboxone Sublingual : Film 8-2 mg, daily.Follow- up:Return to the emergency department as needed. Follow up with your healthcare provider in three dayseven if well. Call for an appointment. Reason for referral: evaluation and treatment. Summary of careprovided to patient via paper.Understanding of the discharge instructions verbalized by patient. Expected course of illness, dischargeinstructions, activity level, diet, follow- up appointment and risks and benefits of treatment reviewed withpatient and understanding verbalized. Agrees to plan of care. 2 General Instructions [facility] Emergency Department [address] [place] [address] Phone #: ext- [phone] 11/07/2019 00:19 Patient: BRUNA LEE Sex: F : 1985 Age: 34y ADDITIONAL INFORMATIONAnxiety ReactionAnxiety is the feeling we all get when we think something bad might happen. It is a normal responseto stress and usually causes only a mild reaction. When anxiety becomes more severe, itcan interfere with daily life. In some cases, you may not even be aware of what it is you're anxiousabout. There may also be a genetic link or it may be a learned behavior in the home.Both psychological and physical triggers cause stress reaction. It's often a response to fear oremotional stress, real or imagined. This stress may come from home, family, work, or socialrelationships.During an anxiety reaction, you may feel: Helpless Nervous Depressed IrritableYour body may show signs of anxiety in many ways. You may experience: Dry mouth Shakiness Dizziness Weakness Trouble breathing Breathing fast (hyperventilating) Chest pressure Sweating Headache Nausea Diarrhea Tiredness Inability to sleep 3 General Instructions [facility] Emergency Department [address] [place] [address] Phone #: ext- [phone] 11/07/2019 00:19 Patient: BRUNA LEE Sex: F : 1985 Age: 34y Sexual problemsHome care Try to locate the sources of stress in your life. They may not be obvious. These may include: o Daily hassles of life (such as traffic jams, missed appointments, or car troubles) o Major life changes, both good (new baby or job promotion) and bad (loss of job or loss of loved one) o Overload: feeling that you have too many res ponsibilities and can't take care of all of them at once o Feeling helpless or feeling that your problems are beyond what you're able to solve Notice how your body reacts to stress. Learn to listen to your body signals. This will help you take action before the stress becomes severe. When you can, do something about the source of your stress. (Avoid hassles, limit the amount of change that happens in your life at one time and take a break when you feel overloaded). Unfortunately, many stressful situations can't be avoided. It is necessary to learn how to better manage stress. There are many proven methods that will reduce your anxiety. These include simple things like exercise, good nutrition, and adequate rest. Also, there are certain techniques that are helpful: o Relaxation o Breathing exercises o Visualization o Biofeedback o MeditationFor more information about this, consult your healthcare provider or go to a local bookstore poly the many books and tapes available on this subject.Follow-up careIf you feel that your anxiety is not responding to self- help measures, contact your healthcare provideror make an appointment with a counselor. You may need short-term psychological counseling andtemporary medicine to help you manage stress. 4 General Instructions [facility] Emergency Department [address] [place] [address] Phone #: ext- [phone] 11/07/2019 00:19 Patient: BRUNA LEE Sex: F : 1985 Age: 34yCall 911Call 911 if any of these happen: Trouble breathing Confusion Drowsiness or trouble wakening Fainting or loss of consciousness Rapid heart rate Seizure New chest pain that becomes more severe, lasts longer, or spreads into your shoulder, arm, neck, jaw, or backWhen to seek medical adviceCall your healthcare provider right away if any of these happen: Your symptoms get worse Severe headache not relieved by rest and mild pain reliever [phone] [employer]. [address] [place] [address]. All rights reserved. This information is not intended as asubstitute for professional medical care. Always follow your healthcare professional's instructions. You have been given the following additional information: Anxiety Reaction(Electronically signed by Evonne Anne M.D. 11/07/2019 05:23) Name Value Range Interpretation Code Description Data [place] rce(s) Supporting Document(s) ID Date Data Source [id number] 11/07/2019 12:19:00 AM EDT [facility] 1 Clinical Report - Nurses [facility] Emergency Department [address] [place] [address] Phone #: ext- [phone] 11/07/2019 00:19 Patient: BRUNA LEE Sex: F : 1985 Age: 34yTRIAGEHistorian: EMS and patient.Triage time: 00:24 11/07/2019.Chief Complaint: NAUSEA and ("face swelling").Onset. (states that it has been going on all day.). ( states that she has been sleeping a lot and used Molly2 days ago. 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 --00:27 11/07/19 Meme Maldonado R.N.Acuity: LEVEL 3.( Whole body aches 12/05.).SEPSIS SCREEN: SIRS Screen: heart rate greater than 90. Sepsis Screen negative. No suspected orconfirmed signs of infection present. --00:35 11/07/19 Meme Maldonado R.N.00:33 11/07/19. BP: 94/68. MAP: 76. HR: 112. RR: 16. O2 saturation: 98%. Temp: 98.1 F. Pain level now:12/05. --00:35 11/07/19 Meme Maldonado R.N.Weight: 78.9 kg stated. Height/Length: 60 inches Per Patient. BMI: 34. --00:24 11/07/19 Meme Maldonado R.N.MedicationsAmitriptyline HCl Oral. Gabapentin Oral. Keppra Oral. RisperDAL Oral. Stomach pill, name unknown. Strattera Oral. Suboxone Sublingual (Film 8-2 mg), daily. --00:28 11/07/19 Meme Maldonado R.N. clonazePAM Oral (new rx starts tomorrow). --00:28 11/07/19 Carlos Maldonado R.N.AllergiesPenicillins.(hives)Sulfa Antibiotics. --00:28 11/07/19 Meme Maldonado R.N.HistoryPAST MEDICAL HX: Gastroesophageal reflux disease. Peptic ulcer disease. Last normal menstrualperiod unknown- last month. 2 Clinical Report - Nurses [facility] Emergency Department [address] [place] [address] Phone #: ext- [phone] 11/07/2019 00:19 Patient: BRUNA LEE Sex: F : 1985 Age: 34y SOCIAL HX: Heavy tobacco smoker- more than 2 packs per day. History of drug use: unable to obtain due to patient condition and refuses to answer drug questions. (States that she uses and is not addicted. She "does not withdraw"). No alcohol use. No recent travel. The patient was offered HIV testing but declined and hepatitis C testing but declined. She has not traveled outside the [place] Infectious disease exposure: No infectious disease exposure. SELF HARM ASSESSMENT: Self harm assessment was performed. The patient answered "no" to the question(s) "Have you recently felt down, depressed, or hopeless?", "Do you have thoughts of harming or killing yourself?", "Do you have a plan for harming or killing yourself?", "Have you recently had thoughts about harming or killing others?", "Do you have any dangerous items in your possession?", "Have you noticed less interest or pleasure in doing things?" and "Are you here because you tried to hurt yourself?" and "yes" to the question(s) "Have you ever tried to hurt yourself before today?". ABUSE ASSESSMENT: No report of abuse. Precautions taken: (2010 attempted Suicide by hanging, cutting wrists and OD pills. Was [facility] 3 wks. Last admit 2017. Sees a counselor weekly currently.). FALL RISK ASSESSMENT: Fall risk assessment completed. Risk factors identified include severe pain and patient medications. Fall interventions initiated. Call light in reach of patient. --00:33 11/07/19 Meme Maldonado R.N.PHYSICAL ASSESSMENTTo room via stretcher.GENERAL / NEURO / PSYCH: Alert. Oriented X 4. Appears anxious. ( appears drowsy. Unkempt.).GI / : The patient has had nausea. Obesity. No blood in the stool. ( has urinary pressure. Last BMa few hrs ago, soft.).SKIN: ( Bruises, track rodriguez on both arms.). --00:37 11/07/19 Meme Maldonado R.N.NURSING PROGRESS NOTESReassurance given. Call light placed in reach. Bed placed in lowest position. Brakes of bed on.--00:36 11/07/19 Meme Maldonado R.N. 02:15 11/07/2019 Site #1 started via IV in the left wrist with an 20g angiocath; three attempts. Blood drawn: rainbow set. Labeled in the presence of the patient. Saline lock flushed with 10 mL saline (samples hand carried to the lab and given to lab LW). --02:26 11/07/19 Meme Maldonado R.N. 02:22 11/07/2019 Zofran (Ondansetron HCl) IVP 4 mg given over 2 minute(s) via site #1. Allergies verified and confirmed 5 rights. IV patency established. IV site checked: no pain, redness, or swelling. IV flushed thoroughly pre- and post-medication administration. IVP given by RN. Information reviewed with patient including reason for taking this medication. Verbalizes understanding. --02:27 11/07/19 Meme Maldonado R.N. 02:26 11/07/2019 Started bag #1 1000 mL IV Fluids IV NS; at 999 mL/hr via site #1 via IV pump. Allergies 3 Clinical Report - Nurses [facility] Emergency Department [address] [place] [address] Phone #: ext- [phone] 11/07/2019 00:19 Patient: BRUNA LEE Sex: F : 1985 Age: 34y verified and confirmed 5 rights. IV patency established. IV site checked: no pain, redness, or swelling. IV flushed thoroughly pre- and post-medication administration. Information reviewed with patient including reason for taking this medication. Verbalizes understanding. --02:11/07/19 Meme Maldonado R.N. Checked patient name and birthdate: patient confirmed. Clean catch urine collected with return of yellow-colored bruna-colored clear urine; sample sent to lab for urinalysis and drug screen. Specimen labeled in the presence of the patient. --02:27 11/07/19 Meme Maldonado R.N. The patient is calm and resting quietly. ( [place] provided. Reassurance given to pt. Lights dimmed. Call light at hand.). --02:28 11/07/19 Meme Maldonado R.N. 03:55 11/07/2019 IV Fluids IV NS via IV site #1 Discontinued: infused. T otal amount infused: 1000 mL. IV patency established. IV site checked: no pain, redness, or swelling. IV flushed thoroughly. --04:20 11/07/19 Mara Gonzalez R.N. 04:19 11/07/2019 Site #1 removed upon discharge. Pressure dressing applied. --04:19 11/07/19 Mara Gonzalez R.N.DISPOSITION / DISCHARGE Departure time: 04:18 11/07/2019. Condition at departure: improved. Discharge instructions provided and reviewed with the patient. Patient verbalized understanding. Written instructions provided in Andorran. The patient was discharged by the physician. She was discharged home. She left ambulatory and via taxi. --04:18 11/07/19 Mara Gonzalez R.N. 04:17 11/07/19. BP: 89/62. HR: 95. RR: 20. O2 saturation: 95%. Temp: 97.6 F. Pain level now 0/10. --04:18 11/07/19 Mara Gonzalez R.N.Locked/Released at 11/07/2019 04:20 by Maar Gonzalez R.N. Name Value Range Interpretation Code Description Data [place] rce(s) Supporting Document(s) ID Date Data Source [id number] 11/07/2019 12:19:00 AM EDT [facility] 1 Clinical Report - Physicians/Mid Levels [facility] Emergency Department [address] [place] [address] Phone #: ext- [phone] 11/07/2019 00:19 Patient: BRUNA LEE Sex: F : 1985 Age: 34y Time Seen: 00:30 11/07/2019; initial patient contact. Arrived- By ambulance. Historian- patient. Disposition decision: 03:21 11/07/2019.HISTORY OF PRESENT ILLNESS Chief Complaint: NAUSEA face swelling. This started just prior to arrival and is still present. No recent travel. She has had mild nausea. No vomiting, diarrhea, black stools, bloody stools or abdominal pain. No constipation, flank pain, history of possible bad food exposure, known contact with a sick individual or change in routine. Has not recently been camping or on antibiotics. The illness is described as mild. 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 Similar symptoms previously. Patient has had similar symptoms occasionally. Recent medical care: Not recently seen/assessed.REVIEW OF SYSTEMSNo fever, muscle aches, difficulty with urination, dark urine or headache. No dizziness, sore throat, cough,chest pain or difficulty breathing. No excessive urination, skin rash, jaundice, back pain or faintingepisodes. No blurred vision. Denies current . All other systems reviewed and are negative.PAST HISTORYSee nurses notes. Problems: Polysubstance abuse. Schizophrenia. Anxiety Reaction. ADHD - Attention Deficit Hyperactivity Disorder. Depression. Seizure Disorder. PTSD. Peptic Ulcer Disease. Gastroesophageal Reflux Disease. Additional Surgeries: Hernia Repair. 2 Clinical Report - Physicians/Mid Levels [facility] Emergency Department [address] [place] [address] Phone #: ext- [phone] 11/07/2019 00:19 Patient: BRUNA LEE Sex: F : 1985 Age: 34y Medications: clonazePAM Oral (new rx starts tomorrow). Amitriptyline HCl Oral. Gabapentin Oral. Keppra Oral. RisperDAL Oral. Stomach pill, name unknown. Strattera Oral. Suboxone Sublingual (Film 8-2 mg), daily. Allergies: Penicillins.(hives) Sulfa Antibiotics.SOCIAL HISTORYHeavy tobacco smoker- more than 2 packs per day. History of drug use: methamphetamines, ecstasy.No alcohol use.ADDITIONAL NOTESThe nursing notes have been reviewed with agreement regarding the chief complaint, HPI, ROS, PMH andpatient medications and allergies.PHYSICAL EXAMVital Signs: 11/07/2019 00:33 BP: 94/68. MAP: 76. HR: 112. RR: 16. O2 saturation: 98%. Temp: 98.1 F.Pain level now: 1010. Have been reviewed. Oxygen saturation normal.Appearance: Alert. Oriented X3. No acute distress.Eyes: Pupils equal, round and reactive to light. Eyes normal inspection.ENT: Ears normal. Nose normal. Pharynx normal. (no facial swelling).Neck: Normal inspection. Neck supple.CVS: Normal heart rate and rhythm. Heart sounds normal. Pulses normal.Respiratory: No respiratory distress. Painless inspiration. Breath sounds normal. No decreased airmovement or wheezes.Abdomen: Soft and nontender. Bowel sounds normal. No organomegaly. No mass. Femoral pulsesequal.Back: Normal inspection.Skin: No cyanosis. Skin warm and dry. Normal skin color. No rash. Normal skin turgor. No skinrash.Extremities: Extremities exhibit normal ROM. No lower extremity edema.Neuro: Oriented X 3. No motor deficit. No sensory deficit. Reflexes normal.LABS, X-RAYS, AND EKGLaboratory Tests: Laboratory tests have been ordered, with results reviewed and considered in themedical decision making process. CBC w Diff: (JENN: 11/07/2019 02:15) ( MsgRcvd 11/07/2019 02:27) Final results Test Result Flag Units (Reference) 3 Clinical Report - Physicians/Mid Levels [facility] Emergency Department [address] [place] [address] Phone #: ext- [phone] 11/07/2019 00:19 Patient: BRUNA LEE Sex: F : 1985 Age: 34y CBC W/AUTOMATED DIFF COMPLETE BLOOD COUNT WBC 8.3 10/uL (4.2 - 11.0) RBC 3.87 L 10/uL (4.20 - 5.40) HEMOGLOBIN 11.6 L g/dL (12.0 - 16.0) HEMATOCRIT 36.0 L % (37.0 - 47.0) MCV 93.0 fL (81.0 - 101) MCH 30.0 pg (27.0 - 34.0) MCHC 32.2 g/dL (31.0 - 36.0) RDW 13.3 % (11.5 - 14.5) PLATELETS 271 10/uL (150 - 450) MPV 9.5 fL (7.4 - 10.4) NEUT 82.6 H % (37.0 - 80.0) LYMPH 14.3 L % (25.0 - 40.0) MONO 1.6 L % (3.0 - 8.0) EOS 0.8 % (0.0 - 7.0) BASO 0.2 % (0.0 - 2.5) %IG 0.5 H % (0.0 - 0.0) %NRBC 0.0 % (0.0 - 0.0) #NEUT 6.85 10/uL (2.00 - 6.90) #LYMPH 1.19 10/uL (0.60 - 3.40) #MONO 0.13 10/uL (0.00 - 0.90) #EOS 0.07 10/uL (0.00 - 0.70) #BASO 0.02 10/uL (0.00 - 0.20) #IG 0.04 10/uL (0.00 - 0.10) #NRBC 0.00 10/uL (0.00 - 0.00) MANUAL DIFF NOT INDICATED RBC MORPH NOT INDICATEDCMP: (JENN: 11/07/2019 02:15) ( MsgRcvd 11/07/2019 03:15) Final results Test Result Flag Units (Reference) COMPREHENSIVE METABOLIC PANEL COMPREHENSIVE METABOLIC PANEL SODIUM 140 mEq/L (134 - 153) POTASSIUM 3.8 mEq/L (3.6 - 5.0) CHLORIDE 100 mEq/L (98 - 107) CO2 30 MEQ/L (22 - 30) GLUCOSE 98 MG/DL (65 - 110) BUN 14 MG/DL (7 - 21) CREATININE 0.7 MG/DL (0.7 - 1.5) BUN/CREAT 20 (8 - 27) TOTAL PROTEIN 5.9 L G/DL (6.3 - 8.2) ALBUMIN 3.6 L G/DL (3.9 - 5.0) GLOBULIN 2.3 L GM/DL (2.4 - 3.2) A/G RATIO 1.6 (0.8 - 2.0) CALCIUM 9.2 MG/DL (8.4 - 10.2) TOTAL BILI <0.7 MG/DL (0.2 - 1.3) ALKALINE PHOS 62 U/L (38 - 126) SGOT/AST 302 H U/L (5 - 40) SGPT/ALT 125 H U/L (7 - 56) ANION GAP 10.0 mmol/L (8.0 - 16.0) AGE 34 yrs NON- AA GFR >60 mL/min AFR AMER GFR >60 mL/min Male GFR Interprentation 20-49 yrs >60 mL/min Ojvpdc83-77 yrs >56 mL/min Normal 60- 69 yrs >49 mL/min Normal 70-79yrs>42 mL/min Normal 80 and above >35 mL/min Normal Female GFRInterpretation 20-39 yrs >60 mL/min Normal 40-49 yrs >58 mL/minNormal 50-59 yrs >51 mL/min Normal 60-69 yrs >45 mL/min Normal 4 Clinical Report - Physicians/Mid Levels [facility] Emergency Department [address] [place] [address] Phone #: ext- [phone] 11/07/2019 00:19 Patient: BRUNA LEE Sex: F : 1985 Age: 87w52-12 yrs >39 mL/min Normal 80 and above >32 mL/min NormalBeta-HCG, Qual Serum: (JENN: 11/07/2019 02:15) ( [facility] 11/07/2019 03:20) Final results Test Result Flag Units (Reference) HCG SERUM QUAL NEGATIVE (NORMAL: NEGAT HCG SERUM QL REENTER NEGATIVE (NORMAL: NEGAT { KIT LOT # [id number] ){ KIT EXP [id number] ){ PROCEDURAL CONTROL VALID)CPK: (JENN: 11/07/2019 02:15) ( [facility] 11/07/2019 03:15) Final results Test Result Flag Units (Reference) CPK 313 H U/L (30 - 170)Drug Screen-Urine: (JENN: 11/07/2019 02:00) ( MsgRcvd 11/07/2019 03:15) Final results Test Result Flag Units (Reference) DRUG SCREEN URINE URINE DRUG SCREEN AMPHETAMINES PRESUMP POS A (NORMAL: NEGAT BARBITURATES NEGATIVE (NORMAL: NEGAT BENZO NEGATIVE (NORMAL: NEGAT COCAINE NEGATIVE (NORMAL: NEGAT THC NEGATIVE (NORMAL: NEGAT OPIATES NEGATIVE (NORMAL: NEGAT PCP NEGATIVE (NORMAL: NEGAT \\BLDo\\URINE DRUG SCREEN INTERPRETATION\\BLDx\\ THE CUTOFFF LEVELS FORDETECTION ARE FOLLOWS: AMPHETAMINES 1000 ng/mlBARBITUARATES 200 ng/ml BENZODIAZEPINES 100 ng/mlTHC 50 ng/ml PHENCYCLIDINE 25 ng/mlOPIATES 300 ng/ml COCAINE 300 ng/mlALL POSITIVES ARE CONSIDERED PRESUMPTIVE POSITIVE CONFIRMATION WILL BE PERFORMED AT [facility].Urinalysis: (JENN: 11/07/2019 02:00) ( MsgRcvd 11/07/2019 02:28) Final results Test Result Flag Units (Reference) URINALYSIS URINALYSIS SOURCE R COLOR yellow (NORMAL: Yello CLARITY clear (NORMAL: Clear SPEC GRAVITY 1.020 (1.001 - 1.030 pH 6 (5 - 9) GLUCOSE NORM (NORMAL: Negat BILIRUBIN NEG (NORMAL: Negat KETONE NEG (NORMAL: Negat PROTEIN NEG (NORMAL: Negat NITRITE NEG (NORMAL: Negat BLOOD NEG (NORMAL: Negat LEUK EST NEG (NORMAL: Negat UROBILINOGEN 1 (less than 1.0 MICROSCOPIC Not Indicate 5 Clinical Report - Physicians/Mid Levels [facility] Emergency Department [address] [place] [address] Phone #: ext- [phone] 11/07/2019 00:19 Patient: BRUNA LEE Sex: F : 1985 Age: 34y.PROGRESS AND PROCEDURESCourse of Care: 00:56 11/07/19. Data Detail Level: Printer-Friendly View Extended ViewConfidential Drug Utilization ReportSearch Terms: bruna lee 1985Search Date: 11/07/2019 00:56:41 AMThe Drug Utilization Report below displays all of the controlled substance prescriptions, if any, that yourpatient has filled in the last twelve months. The information displayed on this report is compiled frompharmacy submissions to the Department, and accurately reflects the information as submitted by [employer]. This report was requested by: Evonne Anne Reference #: [id number] Others' Prescriptions Patient Name: Bruna ComeBirth Date: 1985 Address: [address] [place], [place] [address]Sex: Female Rx Written Rx Dispensed Drug Quantity Days Supply Prescriber Name Payment Method Dispenser 10/28/2019 10/28/2019 buprenorphine-naloxone 8-2 mg sl film 56 28 MoJose J dumont MD Medicaid [facility] 09/30/2019 09/30/2019 buprenorphine-naloxone 8-2 mg sl film 56 28 MoJose J hopson MD Medicaid [facility] 08/28/2019 08/28/2019 buprenorphine-naloxone 8-2 mg sl film 56 28 MoJose J dumont MD Medicaid [facility] 07/23/2019 07/29/2019 buprenorphine-naloxone 8-2 mg sl film 56 28 MoJose J hopson MD Medicaid [facility] 06/27/2019 06/27/2019 buprenorphine-naloxone 8-2 mg sl film 56 28 MoJose J hopson MD Medicaid [facility] 05/29/2019 05/30/2019 buprenorphine-naloxone 8-2 mg sl film 56 28 MoJose J hopson MD Medicaid [facility] 05/01/2019 05/01/2019 buprenorphine-naloxone 8-2 mg sl film 56 28 MoJose J dumont MD Medicaid [facility] 04/03/2019 04/04/2019 buprenorphine-naloxone 8-2 mg sl film 56 28 MoJose J hopson MD Medicaid [facility] 03/06/2019 03/06/2019 buprenorphine-naloxone 8-2 mg sl film 56 28 MoJose J hopson MD Medicaid [facility] 02/06/2019 02/06/2019 suboxone 12 mg-3 mg sl film 28 28 MoJose J dumont MD Medicaid [facility] 01/08/2019 01/08/2019 suboxone 12 mg-3 mg sl film 28 28 MoJose J dumont MD Medicaid [facility] 12/10/2018 12/10/2018 suboxone 8 mg-2 mg sl film 56 28 MoJose J dumont MD Medicaid [facility] 11/12/2018 11/12/2018 suboxone 8 mg-2 mg sl film 56 28 MoJose J dumont MD Medicaid [facility] * - Drugs marked with an asterisk are compound drugs. If the compound drug is made up of more than one controlled substance, then each controlled substance will be a separate row in the table. 6 Clinical Report - Physicians/Mid Levels [facility] Emergency Department [address] [place] [address] Phone #: ext- [phone] 11/07/2019 00:19 Patient: BRUNA LEE Sex: F : 1985 Age: 34y 03:19 11/07/19. workup all in and reviewed, incl.UA and UDS; pt has mild transaminitis, probably from chronic drug use and/or medications; feeling much better, will d/c home w instructions; advised to stop drug use. Patient counseled in person regarding the patient's stable condition, test results, diagnosis and need for follow-up. Patient agrees with plan of care. Disposition: Condition: good and stable. Discharge decision based on the following: patient's condition is stable; patient's condition is improved; patient is ambulatory; patient is active; patient drinking fluids; patient's pain is controlled; patient's exam is improved; no seriously abnormal test results; improving condition on repeat evaluation; social support is adequate; transportation is available; follow-up is available; clinical impression is consistent with outpatient treatment.CLINICAL IMPRESSION Mild nausea (resolved). No vomiting. Normal exam while in the ED and at discharge. Anxiety reaction. Chronic substance abuse- methamphetamines, ecstasy with anxiety.INSTRUCTIONS Drink plenty of fluids. Avoid alcohol and NSAIDS. NSAIDS include aspirin, ibuprofen (Advil) and naproxen (Aleve). Avoid fatty, fried/greasy, lactose- containing (such as milk, cheese and ice cream), salty and spicy foods. No alcohol. Do not smoke. Warnings: Further evaluation is necessary. It is very important to follow up with a healthcare provider. GENERAL WARNINGS: Return or contact your physician immediately if your condition worsens or changes unexpectedly, if not improving as expected, or if other problems arise. SPECIFICALLY, return if you develop pain in the abdomen, pelvis, back or shoulder, fever, vomiting, the inability to keep fluids down, blood in vomitus, blood in diarrhea, fainting or lightheadedness. Your Current Medications: Your current home medications have been reviewed. CONTINUE TAKING THE FOLLOWING MEDICATIONS: Amitriptyline HCl Oral. clonazePAM Oral : new rx starts tomorrow. Gabapentin Oral. Keppra Oral. 7 Clinical Report - Physicians/Mid Levels [facility] Emergency Department [address] [place] [address] Phone #: ext- [phone] 11/07/2019 00:19 Patient: BRUNA LEE Sex: F : 1985 Age: 34y RisperDAL Oral. Stomach pill, name unknown*. Strattera Oral. Suboxone Sublingual : Film 8-2 mg, daily. Follow-up: Return to the emergency department as needed. Follow up with your healthcare provider in three days even if well. Call for an appointment. Reason for referral: evaluation and treatment. Summary of care provided to patient via paper. Understanding of the discharge instructions verbalized by patient. Expected course of illness, discharge instructions, activity level, diet, follow-up appointment and risks and benefits of treatment reviewed with patient and understanding verbalized. Agrees to plan of care.(Electronically signed by Evonne Anne M.D. 11/07/2019 05:23) Name Value Range Interpretation Code Description Data [place] rce(s) Supporting Document(s) ID Date Data Source [id number] 11/07/2019 03:20:00 AM EDT [facility] Name Value Range Interpretation Code Description Data [place] rce(s) Supporting Document(s) HCG SERUM QUAL NEGATIVE NORMAL: NEGATIVE [facility] HCG SERUM QL REENTER NEGATIVE NORMAL: NEGATIVE [facility] { KIT LOT # [id number] ){ KIT EXP DATE 12-08-20 ){ PROCEDURAL CONTROL VALID ) ID Date Data Source [id number] 11/07/2019 03:15:00 AM EDT [facility] Name Value Range Interpretation Code Description Data [place] rce(s) Supporting Document(s) Creatine kinase [Enzymatic activity/volume] in Serum or Plasma 3 13 U/L 30 - 170 H [facility] ID Date Data Source [id number] 11/07/2019 03:14:00 AM EDT [facility] Name Value Range Interpretation Code Description Data [place] rce(s) Supporting Document(s) COMPREHENSIVE METABOLIC PANEL [facility] COMPREHENSIVE METABOLIC PANEL Sodium [Moles/volume] in Serum or Plasma 140 mEq/L 134 - 153 [facility] Potassium [Moles/volume] in Serum or Plasma 3.8 mEq/L 3.6 - 5.0 [facility] Chloride [Moles/volume] in Serum or Plasma 100 mEq/L 98 - 107 [facility] Carbon dioxide, total [Moles/volume] in Serum or Plasma 30 MEQ/L 22 - 30 [facility] Glucose [Mass/volume] in Serum or Plasma 98 MG/DL 65 - 110 [facility] BUN 14 MG/DL 7 - 21 [facility] Creatinine [Mass/volume] in Serum or Plasma 0.7 MG/DL 0.7 - 1.5 [facility] BUN/CREAT 20 8 - 27 [facility] Protein [Mass/volume] in Serum or Plasma 5.9 G/DL 6.3 - 8.2 L [facility] Albumin [Mass/volume] in Serum or Plasma 3.6 G/DL 3.9 - 5.0 L [facility] Globulin [Mass/volume] in Serum by calculation 2.3 GM/DL 2.4 - 3.2 L [facility] A/G RATIO 1.6 0.8 - 2.0 [facility] Calcium [Mass/volume] in Serum or Plasma 9.2 MG/DL 8.4 - 10.2 [facility] Bilirubin.total [Mass/volume] in Serum or Plasma <0.7 MG/DL 0.2 - 1.3 [facility] Alkaline phosphatase [Enzymatic activity/volume] in Serum or Plasma 62 U/L 38 - 126 [facility] Aspartate aminotransferase [Enzymatic activity/volume] in Serum or Plasma 302 U/L 5 - 40 H [facility] Alanine aminotransferase [Enzymatic activity/volume] in Seru m or Plasma 125 U/L 7 - 56 H [facility] Anion gap 3 in Serum or Plasma 10.0 mmol/L 8.0 - 16.0 [facility] AGE 34 yrs [facility] Hospit al NON-AA GFR >60 mL/min [facility] Hosp ital AFR AMER GFR >60 mL/min [facility] Ho spital Male GFR In terprentation 20-49 yrs >60 mL/min Normal 50-59 yrs >56 mL/min Normal 60-69 yrs >49 mL/min Normal 70-79yrs >42 mL/min Normal 80 and above >35 mL/min Normal Female GFR Interpretation 20-39 yrs >60 mL/min Normal 40-49 yrs >58 mL/min Normal 50-59 yrs >51 mL/min Normal 60-69 yrs >45 mL/min Normal 70-79 yrs >39 mL/min Normal 80 and above >32 mL/min Normal ID Date Data Source [id number] 11/07/2019 02:27:00 AM EDT [facility] Name Value Range Interpretation Code Description Data [place] rce(s) Supporting Document(s) CBC W/AUTOMATED DIFF [facility] COMPLETE BLOOD COUNT Leukocytes [#/volume] in Blood by Automated count 8.3 10^3/uL 4.2 - 1 1.0 [facility] Erythrocytes [#/volume] in Blood by Automated count 3.87 10^6/uL 4. 20 - 5.40 L [facility] Hemoglobin [Mass/volume] in Blood 11.6 g/dL 12.0 - 16.0 L [facility] Hematocrit [Volume Fraction] of Blood by Automated count 36.0 % 3 7.0 - 47.0 L [facility] Erythrocyte mean corpuscular volume [Entitic volume] by Auto mated count 93.0 fL 81.0 - 101 [facility] Erythrocyte mean corpuscular hemoglobin [Entitic mass] by Automated count 30.0 pg 27.0 - 34.0 [facility] Erythrocyte mean corpuscular hemoglobin concentration [Mass/volume] by Automated count 32.2 g/dL 31.0 - 36.0 [facility] Erythrocyte distribution width [Ratio] by Automated count 13.3 % 11.5 - 14.5 [facility] Platelets [#/volume] in Blood by Automated count 271 10^3/uL 150 - 45 0 [facility] Platelet mean volume [Entitic volume] in Blood by Automated count 9.5 fL 7.4 - 10.4 [facility] Neutrophils/100 leukocytes in Blood by Automated count 82.6 % 37. 0 - 80.0 H [facility] Lymphocytes/100 leukocytes in Blood by Manual count 14.3 % 25.0 - 40.0 L [facility] Monocytes/100 leukocytes in Blood by Automated count 1.6 % 3.0 - 8.0 L [facility] Eosinophils/100 leukocytes in Blood by Automated count 0.8 % 0.0 - 7.0 [facility] Basophils/100 leukocytes in Blood by Automated count 0.2 % 0.0 - 2.5 [facility] %IG 0.5 % 0.0 - 0.[address] [facility] 0.0 % 0.0 - 0.0 [facility] al Neutrophils [#/volume] in Blood by Automated count 6.85 10^3/uL 2.00 - 6.90 [facility] Lymphocytes [#/volume] in Blood by Automated count 1.19 10^3/uL 0.60 - 3.40 [facility] Monocytes [#/volume] in Blood by Automated count 0.13 10^3/uL 0.00 - 0.90 [facility] Eosinophils [#/volume] in Blood by Automated count 0.07 10^3/uL 0.00 - 0.70 [facility] Basophils [#/volume] in Blood by Automated count 0.02 10^3/uL 0.00 - 0.20 [facility] #IG 0.04 10^3/uL 0.00 - 0.10 [facility] #NRBC 0.00 10^3/uL 0.00 - 0.00 [facility] MANUAL DIFF NOT INDICATED [facility] RBC MORPH NOT INDICATED [facility] ID Date Data Source [id number] 11/07/2019 03:14:00 AM EDT [facility] Name Value Range Interpretation Code Description Data [place] rce(s) Supporting Document(s) DRUG SCREEN URINE [facility] URINE DRUG SCREEN Amphetamine [Presence] in Urine by Screen method PRESUMP POS LISANDRA L: NEGATIVE A [facility] BARBITURATES NEGATIVE NORMAL: NEGATIVE [facility] BENZO NEGATIVE NORMAL: NEGATIVE [facility] COCAINE NEGATIVE NORMAL: NEGATIVE [facility] Tetrahydrocannabinol [Presence] in Urine NEGATIVE NORMAL: NEGATIVE [facility] OPIATES NEGATIVE NORMAL: NEGATIVE [facility] Phencyclidine [Presence] in Urine by Screen method NEGATIVE NOR MAL: NEGATIVE [facility] \\BLDo\\URINE DRUG SCR EEN INTERPRETATION\\BLDx\\ THE CUTOFFF LEVELS FOR DETECTION ARE FOLLOWS: AMPHETAMINES 1000 ng/ml BARBITUARATES 200 ng/ml BENZODIAZEPINES 100 ng/ml THC 50 ng/ml PHENCYCLIDINE 25 ng/ml OPIATES 300 ng/ml COCAINE 300 ng/ml ALL POSITIVES ARE CONSIDERED PRESUMPTIVE POSITIVE CONFIRMATION WILL BE PERFORMED AT PHYSICIAN REQUEST. ID Date Data Source [id number] 11/07/2019 02:27:00 AM EDT [facility] Name Value Range Interpretation Code Description Data [place] rce(s) Supporting Document(s) URINALYSIS [facility] james URINALYSIS SOURCE R [facility] al COLOR yellow NORMAL: Yellow [facility] CLARITY clear NORMAL: Clear [facility] Specific gravity of Urine by Test strip 1.020 1.001 - 1.030 [facility] pH 6 5 - 9 [facility] Glucose [Mass/volume] in Urine by Test strip NORM NORMAL: Negat [facility] Bilirubin.total [Presence] in Urine by Test strip NEG NORMAL: Negative [facility] Ketones [Presence] in Urine by Test strip NEG NORMAL: Negative [facility] Protein [Mass/volume] in Urine by Test strip [facility] Nit[facility] [Presence] in Urine by Test strip NEG NORMAL: Negative [facility] BLOOD NEG NORMAL: Negative [facility] Leukocyte esterase [Presence] in Urine by Test strip NEG LISANDRA L: Negative [facility] Urobilinogen [Mass/volume] in Urine by Test strip 1 less kenna n 1.0 mg/dL [facility] MICROSCOPIC Not Indicate [facility] ID Date Data Source [id number] 10/30/2019 10:27:00 AM EDT [facility] Name Value Range Interpretation Code Description Data [place] rce(s) Supporting Document(s) BG FASTING 132 mg/dL 70-[address] [facility] TSH 0.526 microintl units/mL 0.358-3.740 [facility] ID Date Data Source [id number] 10/30/2019 10:27:00 AM EDT [facility] Name Value Range Interpretation Code Description Data [place] rce(s) Supporting Document(s) HCT 37.6 % 36.0-47.0 N [facility] HGB 11.8 g/dL 12.0-15.5 L [facility] MCH 31.4 G/DL pg 32.0-36.5 [facility] MCHC 29.9 PG % 27.0-33.0 N [facility] PLATELETS 209 10 10*3/mm3 150-450 N [facility] RBC 3.94 10 10*6/mm3 4.00-5.40 L [facility] RDW 12.6 % 11.5-14.5 [facility] WBC TOTAL 4.5 4.0-10.0 N [facility] ID Date Data Source [id number] 10/13/2019 03:25:00 PM EDT [facility] Name Value Range Interpretation Code Description Data [place] rce(s) Supporting Document(s) HCT 40.7 % 36.0-47.0 N [facility] HGB 13.3 g/dL 12.0-15.5 N [facility] MCH 32.7 G/DL pg 32.0-36.5 N [facility] MCHC 30.4 PG % 27.0-33.0 N [facility] PLATELETS 288 10 10*3/mm3 150-450 N [facility] RBC 4.37 10 10*6/mm3 4.00-5.40 N [facility] RDW 12.4 % 11.5-14.5 N [facility] WBC TOTAL 8.7 4.0-10.0 N [facility] ID Date Data Source [id number] 10/09/2019 02:09:00 AM EDT [facility] 1 OrderSheet [facility] Emergency Department [address] [place] [address] Phone #: ext- [phone] 10/09/2019 02:08 Patient: BRUNA LEE Sex: F : 1985 Age: 34yWEIGHT:81.1 kg (M) HEIGHT:60 inches (S) BMI:34.9ALLERGIES: Penicillins, Sulfa AntibioticsCHIEF COMPLAINT: sore throatDIAGNOSIS: PharyngitisLAB ORDERSOrder Description Priority Entered Acknowledged InitialedRapid Strep Screen STAT 02:41 10/09/2019 03:00 Evonne Ruelas RN, M.D.;DIAGNOSTIC STUDY ORDERSOrder Description Priority Entered Acknowledged InitialedMEDICATION/IV/DRIP/FLUID ORDERSOrder Description Priority Entered Acknowledged InitialedIbuprofen 800 mg 03:29 10/09/2019 Ack'd: 03:34 Meme 03:39 Meme Narvaez X1 dose: 800 Evonne Anne R.N., R.N.mg (NOW x1) Jeremie;GENERAL ORDERSOrder Description Priority Entered Acknowledged Initialed[Electronically signed by Evonne Anne M.D. (03:51 10/09/2019)][Electronically signed by Meme Damon R.N. (07:29 10/09/2019)][Electronically locked by Meme Damon R.N. (07:29 10/09/2019)] Name Value Range Interpretation Code Description Data [place] rce(s) Supporting Document(s) ID Date Data Source [id number] 10/09/2019 02:09:00 AM EDT [facility] 1 Medication Reconciliation Report [facility] Emergency Department [address] [place] [address] Phone #: ext- [phone] 10/09/2019 02:08 Patient: BRUNA LEE Sex: F : 1985 Age: 34yWeight: 81.1 kgHeight/Length: 60 in.BMI: 34.9ALLERGIES: Penicillins, Sulfa AntibioticsThe patient's Home Medications are listed below:CONTINUE TAKING THE FOLLOWING MEDICATIONS: Amitriptyline HCl Oral Gabapentin Oral Keppra Oral RisperDAL Oral Stomach pill, name unknown Strattera Oral Suboxone Sublingual (8-2 mg), dailyThe source(s) of the original Home Medication information:Not obtained.The following Medications were given to the patient in the Emergency Department:Ibuprofen [PO] PO 800 mg, administered: 10/09/2019 3:39:00 AMThe following Medications were prescribed to the patient:None. Name Value Range Interpretation Code Description Data [place] rce(s) Supporting Document(s) ID Date Data Source [id number] 10/09/2019 02:09:00 AM EDT [facility] 1 Medication Administration Record [facility] Emergency Department [address] [place] [address] Phone #: ext- [phone] 10/09/2019 02:08 Patient: BRUNA LEE Sex: F : 1985 Age: 34yWeight: 81.1 kgHeight/Length: 60 inBMI: 34.9ALLERGIES: Penicillins, Sulfa Antibiotics Date/Time Medication Administered Medication OrderedGiven IBUPROFEN [PO] Ibuprofen 800 mg PO X1 dose: 94271:39 10/09/2019 Dose: 800 mg Tablets PO mg (NOW x1)Meme Maldonado R.N. Name Value Range Interpretation Code Description Data [place] rce(s) Supporting Document(s) ID Date Data Source [id number] 10/09/2019 02:09:00 AM EDT [facility] 1 General Instructions [facility] Emergency Department [address] [place] [address] Phone #: ext- [phone] 10/09/2019 02:08 Patient: BRUNA LEE Sex: F : 1985 Age: 34yAcute viral pharyngitis.INSTRUCTIONSDrink plenty of fluids. Do not smoke. No alcohol.Warnings: Further evaluation is necessary. It is very important to follow up with a healthcare provider.GENERAL WARNINGS: Return or contact your physician immediately if your condition worsens orchanges unexpectedly, if not improving as expected, or if other problems arise. Specifically return if pain,vomiting, bleeding, breathing difficulty or fever greater than 102 degrees F and not controlled byacetaminophen or ibuprofen worsens.Your Current Medications: Your current home medications have been reviewed.CONTINUE TAKING THE FOLLOWING MEDICATIONS:Amitriptyline HCl Oral.Gabapentin Oral.Keppra Oral.RisperDAL Oral.Stomach pill, name unknown*.Strattera Oral.Suboxone Sublingual : Film 8-2 mg, daily.Follow- up:Return to the emergency department as needed. Follow up with your healthcare provider in two days asneeded. Call for an appointment. Reason for referral: evaluation and treatment. Summary of care providedto patient via paper.Understanding of the discharge instructions verbalized by patient. Expected course of illness, dischargeinstructions, activity level, diet, follow- up appointment and risks and benefits of treatment reviewed withpatient and understanding verbalized. Agrees to plan of care. ADDITIONAL INFORMATIONViral Pharyngitis (Sore Throat) 2 General Instructions [facility] Emergency Department [address] [place] [address] Phone #: ext- [phone] 10/09/2019 02:08 Patient: BRUNA LEE Sex: F : 1985 Age: 34yYou or your child have pharyngitis (sore throat). This infection is caused by a virus. It can causethroat pain that is worse when swallowing, aching all over, headache, and fever. The infection may bespread by coughing, kissing, or touching others after touching your mouth or nose. Antibioticmedicines do not work against viruses. They are not used for treating this illness.Home care If symptoms are severe, you or your child should rest at home. Return to work or school when you or your child feel well enough. You or your child should drink plenty of fluids to prevent dehydration. Use throat lozenges or numbing throat sprays to help reduce pain. Gargling with warm salt water will also help reduce throat pain. Dissolve 1/2 teaspoon of salt in 1 glass of warm water. 3 General Instructions [facility] Emergency Department [address] [place] [address] Phone #: ext- [phone] 10/09/2019 02:08 Patient: BRUNA LEE Sex: F : 1985 Age: 34y Children can sip on juice or a popsicle. Children 5 years and older can also suck on a lollipop or hard candy. Don't eat salty or spicy foods or give them to your child. These can be irritating to the throat.Medicines for a child: You can give your child acetaminophen for fever, fussiness, or dis comfort. Inbabies over 6 months of age, you may use ibuprofen instead of acetaminophen. If your child haschronic liver or kidney disease or ever had a stomach ulcer or GI bleeding, talk with your child'shealthcare provider before giving these medicines. Aspirin should never be used by any child under18 years of age who has a fever. It may cause severe liver damage.Medicines for an adult: You may use acetaminophen or ibuprofen to control pain or fever, unlessanother medicine was prescribed for this. If you have chronic liver or kidney disease or ever had astomach ulcer or GI bleeding, talk with your healthcare provider before using these medicines.Follow-up careFollow up with a healthcare provider or our staff if you or your child are not getting better over thenext week.When to seek medical adviceCall your healthcare provider right away if any of these occur: Fever as directed by your healthcare provider. For children, seek care if: o Your child is of any age and has repeated fevers above 104F (40C). o Your child is younger than 2 years of age and has a fever of 100.4F (38C) for more than 1 day. o Your child is 2 years old or older and has a fever of 100.4F (38C) for more than 3 days. New or worsening ear pain, sinus pain, or headache Painful lumps in the back of neck Stiff neck Lymph nodes are getting larger Can't swallow liquids, a lot of drooling, or can't open mouth wide due to throat pain Signs of dehydration, such as very dark urine or no urine, sunken eyes, dizziness Trouble breathing or noisy breathing 4 General Instructions [facility] Emergency Department [address] [place] [address] Phone #: ext- [phone] 10/09/2019 02:08 Patient: BRUNA LEE Sex: F : 1985 Age: 34y Muffled voice New rash Other symptoms are getting worse 8515-1221 [employer]. [address] [place] [address]. All rights reserved. This information is not intended as asubstitute for professional medical care. Always follow your healthcare professional's instructions. You have been given the following additional information: Pharyngitis, Viral(Electronically signed by Evonne Anne M.D. 10/09/2019 03:51) Name Value Range Interpretation Code Description Data [place]ira rce(s) Supporting Document(s) ID Date Data Source [id number] 10/09/2019 02:09:00 AM EDT [facility] 1 Clinical Report - Nurses [facility] Emergency Department [address] [place] [address] Phone #: ext- [phone] 10/09/2019 02:08 Patient: BRUNA LEE Sex: F : 1985 Age: 34yTRIAGEHistorian: EMS and patient.Triage time: 02:08 10/09/2019.Chief Complaint: SORE THROAT.This started just prior to arrival. The patient has had a hoarse voice.Treatment NETWORK SYSTEMS OPERATOR:Took Tylenol. (arthritis kind).EMS Treatment NETWORK SYSTEMS OPERATOR:See EMS report.SEPSIS SCREEN: SIRS Screen: heart rate greater than 90. Sepsis Screen negative. No suspected orconfirmed signs of infection present. --02:14 10/09/19 Meme Maldonado R.N.02:11 10/09/19. BP: 130/86. MAP: 100. HR: 105. RR: 18. O2 saturation: 100%. Temp: 98.5 F. Pain levelnow: 12/05. --02:14 10/09/19 Meme Maldonado R.N.Treatment NETWORK SYSTEMS OPERATOR:(Seen at [facility] for this issue within the last few days, states that they could not figure out what was wrongwith her.). --02:28 10/09/19 Meme Maldonado R.N.Acuity: LEVEL 4.02:11 10/09/19. --07:29 10/09/19 Meme Maldonado R.N.Weight: 81.1 kg measured. Height/Length: 60 inches Per Patient. BMI: 34.9. --02:08 10/09/19 Meme Jordan R.N.MedicationsRisperDAL Oral. --02:15 10/09/19 Meme Maldonado R.N. Keppra Oral. --02:15 10/09/19 Meme Maldonado R.N. Strattera Oral. --02:15 10/09/19 Meme Maldonado R.N. Amitriptyline HCl Oral. --02:15 10/09/19 Meme Maldonado R.N. Gabapentin Oral. --02:15 10/09/19 Meme Maldonado R.N. Stomach pill, name unknown. --02:16 10/09/19 Meme Maldoando R.N. Suboxone Sublingual (Film 8-2 mg), daily. --02:21 10/09/19 Meme Maldonado R.N.AllergiesPenicillins.(hives) 2 Clinical Report - Nurses [facility] Emergency Department [address] [place] [address] Phone #: ext- [phone] 10/09/2019 02:08 Patient: BRUNA LEE Sex: F : 1985 Age: 34y Sulfa Antibiotics. --02:16 10/09/19 Meme Maldonado R.N. PROBLEMS: Anxiety Reaction. Depression. ADHD - Attention Deficit Hyperactivity Disorder. Schizophrenia. PTSD. Seizure Disorder. --02:18 10/09/19 Meme Maldonado R.N. ADDITIONAL SURGERIES: Hernia Repair (Umbilical ). --02:18 10/09/19 Mmee Maldonado R.N. History PAST MEDICAL HX: Strep throat. No history of mononucleosis or abscess. Last normal menstrual period was 3 weeks ago. 3. Para 3. Sexual history - sexually active. SOCIAL HX: Heavy tobacco smoker- 1-2 packs per day. Occasional alcohol use. History of drug use: marijuana. 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 She was offered HIV testing but declined and hepatitis C testing but declined. She has not traveled outside the [place] Infectious disease exposure: No infectious disease exposure. Patient is a known carrier of MRSA. (no known exposure to Covid). SELF HARM ASSESSMENT: Self harm assessment was performed. The patient answered "no" to the question(s) "Have you recently felt down, depressed, or hopeless?", "Do you have thoughts of harming or killing yourself?", "Do you have a plan for harming or killing yourself?", "Have you recently had thoughts about harming or killing others?", "Do you have any dangerous items in your possession?", "Have you noticed less interest or pleasure in doing things?" and "Are you here because you tried to hurt yourself?" and "yes" to the question(s) "Have you ever tried to hurt yourself before today?". ABUSE ASSESSMENT: No report of abuse. Precautions taken: (Reports that she has been in Mental Health a number of times, but not recently). FALL RISK ASSESSMENT: Fall risk assessment completed. Risk factors identified include patient impairment of cognition. Fall interventions initiated. Bed in low position. Brakes on. Patient visible from nurses' station. Call light in reach of patient. Instructed not to get up without assistance. --02:24 10/09/19 Meme Maldonado R.N.PHYSICAL ASSESSMENTTo room via stretcher.GENERAL / NEURO / PSYCH: ( pt slurring speech slightly).HEENT: Sinus tenderness present. Hoarse voice. No nasal discharge. ( States that she thinks there pablo bug in her throat.). Dental decay. 3 Clinical Report - Nurses [facility] Emergency Department [address] [place] [address] Phone #: ext- [phone] 10/09/2019 02:08 Patient: BRUNA LEE Sex: F : 1985 Age: 34y RESPIRATORY: Respirations not labored. No cough. SKIN: ( Multiple bruises, scars and various stages of healing spots on her upper and lower extremities.). --02:27 10/09/19 Meme Maldonado R.N.NURSING PROGRESS NOTESCall light placed in reach. Bed placed in lowest position. Brakes of bed on. --02:27 10/09/19 Meme Jordan R.N. 03:39 10/09/2019 Ibuprofen PO Tablets 800 mg given. Allergies verified and confirmed 5 rights. Information reviewed with patient including reason for taking this medication. Verbalizes understanding. --03:39 10/09/19 Meme Maldonado R.N.DISPOSITION / DISCHARGE Departure time: 03:44 10/09/2019. Condition at departure: stable. No learning barriers present. Patient verbalized understanding. Written instructions provided in Andorran. The patient was discharged by the physician. She was discharged home. She left ambulatory and via taxi. --03:46 10/09/19 Meme Maldonado R.N. 03:30 10/09/19. BP: 128/88. MAP: 101. HR: 96. RR: 16. O2 saturation: 100%. Temp: 98 F. Pain level now: 10/05. --03:46 10/09/19 Meme Maldonado R.N.Locked/Released at 10/09/2019 07:29 by Meme Maldonado R.N. Name Value Range Interpretation Code Description Data [place] rce(s) Supporting Document(s) ID Date Data Source [id number] 10/09/2019 02:09:00 AM EDT [facility] 1 Clinical Report - Physicians/Mid Levels [facility] Emergency Department [address] [place] [address] Phone #: ext- [phone] 10/09/2019 02:08 Patient: BRUNA LEE Sex: F : 1985 Age: 34y Time Seen: 02:18 10/09/2019; initial patient contact. Arrived- By ambulance. Historian- patient. Disposition decision: 03:27 10/09/2019.HISTORY OF PRESENT ILLNESS Chief Complaint: SORE THROAT. slightly hoarse voice. This started just prior to arrival and is still present. Pain described as mild. The patient has had a mild sore throat . No pain with swallowing. She has been able to swallow. No mouth sores, nasal discharge or congestion, ear pain or toothache. No swollen jaw or face, jaw pain or facial pain. (per EMS, pt is well known to [facility] ER for multiple ER visits for multiple somatic and psychiatric complaints; tonight, she complains of sore throat, hoarse voice, bugs on her skin, etc.; pt has therapist in [place]). Similar symptoms previously. Patient has had similar symptoms occasionally. Recent medical care: The patient was seen recently at another facility in the emergency department.REVIEW OF SYSTEMSNo fever, eye discomfort, cough, difficulty breathing or chest pain. No nausea, diarrhea, abdominal pain,difficulty with urination or headache. No fainting episodes, joint pain, skin rash, enlarged lymph nodes orvomiting. All other systems reviewed and are negative.PAST HISTORYSee nurses notes. Problems: Strep Throat. Anxiety Reaction. Depression. ADHD - Attention Deficit Hyperactivity Disorder. Schizophrenia. PTSD. Seizure Disorder. Additional Surgeries: Hernia Repair. Medications: 2 Clinical Report - Physicians/Mid Levels [facility] Emergency Department [address] [place] [address] Phone #: ext- [phone] 10/09/2019 02:08 Patient: BRUNA LEE Sex: F : 1985 Age: 34y Suboxone Sublingual (Film 8-2 mg), daily. Stomach pill, name unknown. Gabapentin Oral. Amitriptyline HCl Oral. Strattera Oral. Keppra Oral. RisperDAL Oral. Allergies: Penicillins.(hives) Sulfa Antibiotics.SOCIAL HISTORYHeavy tobacco smoker- 1-2 packs per day. Occasional alcohol use. History of occasional drug use:marijuana.ADDITIONAL NOTESThe nursing notes have been reviewed with agreement regarding the chief complaint, HPI, ROS, PMH andpatient medications and allergies.PHYSICAL EXAMVital Signs: 10/09/2019 02:11 BP: 130/86. MAP: 100. HR: 105. RR: 18. O2 saturation: 100%. Temp: 98.5F. Pain level now: 1010. Have been reviewed. Oxygen saturation normal.Appearance: Alert. No acute distress. Anxious.Head: Normal external inspection.Eyes: Pupils equal, round and reactive to light. Conjunctivae and eyelids normal.ENT: Ears normal. Nose normal. Pharynx normal. Lips normal. Gums normal. No trismus present.Uvula mid line. (slightly hoarse voice).Neck: Normal inspection. Trachea midline. No adenopathy. Thyroid normal. Neck supple.CVS: Normal heart rate and rhythm. Heart sounds normal. Pulses normal.Respiratory: No respiratory distress. Painless inspiration. Breath sounds normal. Chest nontender.Abdomen: Soft and nontender. No organomegaly.Skin: Normal skin color. No rash. Normal skin turgor. (multiple dry scabs throughout her body, cassy.legs).Extremities: Extremities exhibit normal ROM. Extremities nontender.Neuro: Oriented X 3. No motor deficit. No sensory deficit. Reflexes normal.LABS, X-RAYS, AND EKGLaboratory Tests: Laboratory tests have been ordered, with results reviewed and considered in themedical decision making process. Rapid Strep Screen: (JENN: 10/09/2019 02:48) ( MsgRcvd 10/09/2019 03:02) Final results Test Result Flag Units (Reference) RAPID STREP NEGATIVE (NORMAL: NEGAT RAPID STREP REENTER NEGATIVE (NORMAL: NEGAT { PROCEDURAL CONTROL VALID ){ KIT LOT # [id number] ){ KIT EXP DATE [id number] )The 3 Clinical Report - Physicians/Mid Levels [facility] Emergency Department [address] [place] [address] Phone #: ext- [phone] 10/09/2019 02:08 Patient: BRUNA LEE Sex: F : 1985 Age: 34y Strep A 2 assay utilizes isothermal nucleic acid amplification technology fothe qualitative detection of Group A Strep bacterial nucleic acid in throat swabspecimens.All negative test results no longer need to be confirmed with a culture. Follow-up testing requiring a culture is necessary if clinical symptoms persist, or inthe event of an acute rheumatic fever outbreak. A culture will need to beordered by the Qualified Medical Provider.Negative results do not preclude infection with Group A Strep and should not beused as the sole basis for treatment..PROGRESS AND PROCEDURESCourse of Care: 02:19 10/09/19. Data Detail Level: Printer-Friendly View Extended ViewConfidential Drug Utilization ReportSearch Terms: bruna lee, 1985Search Date: 10/09/2019 02:19:15 AMThe Drug Utilization Report below displays all of the controlled substance prescriptions, if any, that yourpatient has filled in the last twelve months. The information displayed on this report is compiled frompharmacy submissions to the Department, and accurately reflects the information as submitted by [employer]. This report was requested by: Evonne Anne Reference #: [id number] Others' Prescriptions Patient Name: Bruna LeeBirth Date: 1985 Address: [address] [place] [id number]: Female Rx Written Rx Dispensed Drug Quantity Days Supply Prescriber Name Payment Method Dispenser 09/30/2019 09/30/2019 buprenorphine-naloxone 8-2 mg sl film 56 28 MoehsJose J MD Medicaid [facility] 08/28/2019 08/28/2019 buprenorphine-naloxone 8-2 mg sl film 56 28 Moehs, Jose J Bundy MD Medicaid [facility] 07/23/2019 07/29/2019 buprenorphine-naloxone 8-2 mg sl film 56 28 Moehs, Jose J Bundy MD Medicaid [facility] 06/27/2019 06/27/2019 buprenorphine-naloxone 8-2 mg sl film 56 28 Moehs, Jose J Bundy MD Medicaid [facility] 05/29/2019 05/30/2019 buprenorphine-naloxone 8-2 mg sl film 56 28 Moehs, Jose J Bundy MD [facility] 05/01/2019 05/01/2019 buprenorphine-naloxone 8-2 mg sl film 56 28 Moehs, Jose J Bundy MD Medicaid [facility] 04/03/2019 04/04/2019 buprenorphine-naloxone 8-2 mg sl film 56 28 Moehs, Jose J Bundy MD Medicaid [facility] 03/06/2019 03/06/2019 buprenorphine-naloxone 8-2 mg sl film 56 28 Moehs, Jose J Bundy MD Medicaid [facility] 02/06/2019 02/06/2019 suboxone 12 mg-3 mg sl film 28 28 Moehs, Jose J Bundy MD Medicaid [facility] 01/08/2019 01/08/2019 suboxone 12 mg-3 mg sl film 28 28 Moehs, Jose J Bundy MD Medicaid [facility] 12/10/2018 12/10/2018 suboxone 8 mg-2 mg sl film 56 28 MoehsJose J MD Medicaid [facility] 4 Clinical Report - Physicians/Mid Levels [facility] Emergency Department [address] [place] [address] Phone #: [phone]- [phone] 10/09/2019 02:08 Patient: BRUNA LEE Sex: F : 1985 Age: 34y 11/12/2018 11/12/2018 suboxone 8 mg-2 mg sl film 56 28 Jose J Mao MD Medicaid [facility] 10/15/2018 10/15/2018 suboxone 8 mg-2 mg sl film 56 28 Jose J Mao MD Medicaid [facility] * - Drugs marked with an asterisk are compound drugs. If the compound drug is made up of more than one controlled substance, then each controlled substance will be a sep arate row in the table. rapid strep test neg.; will d/c home w instructions; probable viral pharyngitis w anxiety dz. Patient counseled in person regarding the patient's stable condition, test results, diagnosis and need for follow-up. Patient agrees with plan of care. Disposition: Condition: good and stable. Discharge decision based on the following: patient's condition is stable; patient's condition is improved; patient is ambulatory; patient is active; patient drinking fluids; patient eating; patient's pain is controlled; patient's exam is improved; no abnormal test results; improving condition on repeat evaluation; social support is good; transportation is available; follow-up is available; clinical impression is consistent with outpatient treatment.CLINICAL IMPRESSION Acute viral pharyngitis.INSTRUCTIONS Drink plenty of fluids. Do not smoke. No alcohol. Warnings: Further evaluation is necessary. It is very important to follow up with a healthcare provider. GENERAL WARNINGS: Return or contact your physician immediately if your condition worsens or changes unexpectedly, if not improving as expected, or if other problems arise. Specifically return if pain, vomiting, bleeding, breathing difficulty or fever greater than 102 degrees F and not controlled by acetaminophen or ibuprofen worsens. Your Current Medications: Your current home medications have been reviewed. CONTINUE TAKING THE FOLLOWING MEDICATIONS: Amitriptyline HCl Oral. Gabapentin Oral. Keppra Oral. RisperDAL Oral. Stomach pill, name unknown*. 5 Clinical Report - Physicians/Mid Levels [facility] Emergency Department [address] [place] [address] Phone #: ext- [phone] 10/09/2019 02:08 Patient: BRUNA LEE Sex: F : 1985 Age: 34y Strattera Oral. Suboxone Sublingual : Film 8-2 mg, daily. Follow-up: Return to the emergency department as needed. Follow up with your healthcare provider in two days as needed. Call for an appointment. Reason for referral: evaluation and treatment. Summary of care provided to patient via paper. Understanding of the discharge instructions verbalized by patient. Expected course of illness, discharge instructions, activity level, diet, follow-up appointment and risks and benefits of treatment reviewed with patient and understanding verbalized. Agrees to plan of care.(Electronically signed by Evonne Anne M.D. 10/09/2019 03:51) Name Value Range Interpretation Code Description Data [place] rce(s) Supporting Document(s) ID Date Data Source [id number] 10/09/2019 03:02:00 AM EDT [facility] Name Value Range Interpretation Code Description Data [facility] Supporting Document(s) RAPID STREP NEGATIVE NORMAL: NEGATIVE [facility] RAPID STREP REENTER NEGATIVE NORMAL: NEGATIVE [facility] { PROCEDURAL CONTROL VALID ){ KIT LOT # [id number] ){ KIT EXP DATE [id number] )The Strep A 2 assay utilizes isothermal nucleic acid amplification technology fothe qualitative detection of Group A Strep bacterial nucleic acid in throat swabspecimens.All negative test results no longer need to be confirmed with a culture. Follow-up testing requiring a culture is necessary if clinical symptoms persist, or inthe event of an acute rheumatic fever outbreak. A culture will need to beordered by the Qualified Medical Provider.Negative results do not preclude infection with Group A Strep and should not beused as the sole basis for treatment. ID Date Data Source [id number] 09/22/2019 02:34:28 PM EDT [facility] Measurements & CalculationsHeight: 61 inches (5 ft. 1 in.) 154.94 cm Weight: 159 pounds 72.27 kg Body Mass Index (BMI): 30.15BMI Interpretation: ObeseBody Surface Area (BSA): 1.72Weight Management Education Done (Nutrition/Physical Activity)Vital SignsTemperature: 97.8FPulse Rate: 79 beats/minuteRespiratory Rate: 16 respirations/minuteBlood Pressure: 112/74 O2 Saturation: 97% Vital Signs performed by: Demetria Elliott MA, September 22, 2019 2:38 PMInitial Intake Information From: patientRoom #: 14Infectious Disease / Travel ScreeningRecent travel for you or any close contacts? NoHave you had any close contact with anyone diagnosed with or under investigation for COVID-19 (coronavirus)? NoFever? NoRespiratory symptoms: cough, cold, congestion, shortness of breath, difficulty breathing? NoLoss of smell? NoLoss of taste? NoSmoking, Tobacco, Vaping or Smoke Exposure StatusSmoke Status: current every day smokerTobacco Use: YesAdv to Quit: YesDo you vape? NoMenstrual HistoryLast Menstrual Period (LMP): 09/15/2019Any possibility of ? NoHealthcare HistorySince your last office visit...Have you been admitted to the hospital? No - drug overdoseHospital admission date reported today: 12/19/2018Have you been to an emergency room (ER) or urgent care clinic? Yes - [facility] Have you seen another healthcare provider? Yes - [facility] Have you seen a dentist? NoIntake performed by: Demetria Elliott MA, September 22, 2019 2:36 PMRate Your HealthIn general, would you say your health is? GoodPain AssessmentAre you cu rrently having any pain which... You would like your provider to address? No Affects your activity level? NoDepression Screening - PHQ-2Over the last two weeks, have you... Had little interest or pleasure in doing things? Not at all Been feeling down, depressed, or hopeless? Not at all PHQ-2 Score: 0Anxiety Screening - ROX-2Over the last two weeks, have you been... Feeling nervous, anxious, or on edge? Not at all Unable to stop or control worrying? Not at all ROX-2 Score: 0Screening, Brief Intervention, & Referral to Treatment (SBIRT)Pre-Screening Questions How many times have you have 4 or more drinks in a day? 0How many times have you used an illegal drug or used a prescription medication for a non-medical reason? 0Performed by: Demetria Elliott MA, September 22, 2019 2:37 PMPatient History Medical History:AnemiaAnxiety DisorderDepressionSeizure Disordersubstance abuseSurgical History:hernia umbical 2013Family History:Family History of AlcoholismFH of Anesthetic ComplicationsFH DepressionFH DiabetesFH Heart DiseaseFH High CholesterolFH SeizuresFH Uterine CancerSocial/Personal History: Advised to Quit/Tobacco Education: YesChief Complainter f/u feels like "bugs"are under her skin History of Present Illness (HPI)Multiple concerns today including vomiting blood for the past week and the sensation she has bugs inside of her. Multiple trips to the ER over the past we ek.Last time she vomited blood was about 2 days ago.History of GERD. On prilosec with good relief. Some epigastric pain. No known history of ulcers. Has never had an upper GI endoscopy.Has the sensation of bugs crawling all over her. Has some sores on her lower legs. Not itchy but painful. Last meth use was 2 weeks ago. Did have meth and opiates in her urine. Thinks that the meth was in her urine because she had misted it and she thinks that this lasts longer. She does not believe that this is due to the meth because she has had this sensation before with meth and this is different. [facility]es [facility] for her mental health issues (schizophrenia) and feels that this is going well.HPI performed by: Francesco Ritchie MD, September 22, 2019 2:52 PMTransitions of Care InboundProblem ReviewProblem List was reviewed and/or updated during this visit.Medication Reconciliation & ReviewMedication List was reviewed and/or updated during this visit, including review of any tylt-usa-kmacwlu medications, herbal therapies, and/or supplements.Allergy ReviewAllergy List was reviewed and/or updated during this visit.Adult Preventive CareProvider Calculated and Reviewed all Clinical Protocols for patient today. Screening Tobacco Screening: Smoking Status: current every day smoker (09/22/2019) Tobacco Use: Currently (09/22/2019) Advised to Quit: Yes (09/22/2019)Labs/Meds/Other Counseling- Nutrition and Physical Activity:BMI Interpretation: Obese (09/22/2019) Counseling: Done (09/22/2019) Physical Activity: Done (09/22/2019)Physical ExamGeneral Appearance: well nourished, well hydrated, no acute distre ssRespiratory, Auscultation: clear to auscultation bilaterally; no rales, rhonchi, or wheezesRespiratory, Effort: no intercostal retractions or use of accessory musclesCardiovascular, Auscultation: S1, S2 audible; no murmur, rub, or gallop; RRRGait & Station: normalSkin, Inspection: Small open areas both legs with minimal surrounding erythema. No drainage.Orientation: oriented to time, place, and personMood & Affect: no depression, anxiety, or agitationJudgment & Insight: intactCare Management Plan Transitions of CareInboundRate Your HealthIn general, would you say your health is? GoodAssessment & Plan Problems:Added: Hematemesis - cause unknown (ICD-578.0) ([id number]-F59.0) Assessment: Instructions: Currently asymptomatic but worrisome enough to warrant further workup.Avoid NSAIDs and refer to GI.Return to ER if this occurs again.Assessed:Peripheral neuropathy (ICD-356.9) (OWI44-T61.9) Assessment: Instructions: I am not sure where the sores on her legs and the bug sensations are coming but I think that this may be due to the meth use.Monitor and discuss further next visit in one month if symptoms persist.Patient Instructions/Care Plan: Hematemesis - cause unknown: Currently asymptomatic but worrisome enough to warrant further workup.Avoid NSAIDs and refer to GI.Return to ER if this occurs again.Peripheral neuropathy: I am not sure where the sores on her legs and the bug sensations are coming but I think that this may be due to the meth use.Monitor and discuss further next visit in one month if symptoms persist. Plan developed in collaboration with patient and/or familyMedications:[facility] OMEPRAZOLE 20 MG ORAL TABLET DELAYED RELEASECHLORPROMAZINE HCL 50 MG ORAL TABLETDIPHENHYDRAMINE HCL 50 MG ORAL CAPSULESUMATRIPTAN SUCCINATE 50 MG ORAL TABLETATOMOXETINE HCL 40 MG ORAL CAPSULEAMITRIPTYLINE HCL 75 MG ORAL TABLETBETAMETHASONE DIPROPIONATE 0.05 % EXTERNAL CREAMLEVETIRACETAM 1000 MG ORAL TABLETGABAPENTIN 400 MG ORAL CAPSULEMedication Changes:Refilled:SUMATRIPTAN SUCCINATE 50 MG ORAL TABLET-take one tab po at the onset of headache. may repeat dose x one if no releif after two hours. Qty: 15[Tablet] Refills: 0 Method: ElectronicLEVETIRACETAM 1000 MG ORAL TABLET-1 pill po bid Qty: 60[Tablet] Refills: 0 Method: ElectronicGABAPENTIN 400 MG ORAL CAPSULE-take one tablet by mouth three times daily as needed Qty: 90[Capsule] Refills: 0 Method: ElectronicNew Prescription:[facility] OMEPRAZOLE 20 MG ORAL TABLET DELAYED RELEASE-One tablet by mouth every day Qty: 30[Tablet] Refills: 2 Method: ElectronicRemoved:DOXYCYCLINE MONOHYDRATE 100 MG ORAL TABLET-take one tablet by mouth twice daily x 5 days Qty: 10[Tablet] Refills: 0, FLUCONAZOLE 150 MG ORAL TABLET-1 po in 7-10 days prn yeast vagtinitis from abx, NAPROSYN TABLETAllergies:PENICILLIN (Critical)BACTRIM (Critical)* SULFA ANTIBIOTICS (Critical)Orders:Adult - Ofc Vst, EST, Level III [CPT-15767] Gastroenterology Consult [CPT-64797] Medications:GABAPENTIN 400 MG ORAL CAPSULE (GABAPENTIN) take one tablet by mouth three times daily as needed #90[Capsule] x 0 Route:ORAL Entered and Authorized by: Francesco Ritchie MD Method used: Electronically to [facility] (retail) [address] [place] [address] Note to Pharmacy: Route: ORAL; Indications: PERIPHERAL NEUROPATHY;BILATERAL CARPAL TUNNEL SYNDROME RxID: [id number] 1000 MG ORAL TABLET (LEVETIRACETAM) 1 pill po bid #60[Tablet] x 0 Route:ORAL Entered and Authorized by: Francesco Ritchie MD Method used: Electronically to [facility] (retail) [address] [place] [address] Note to Pharmacy: Route: ORAL; RxID: [id number] SUCCINATE 50 MG ORAL TABLET (SUMATRIPTAN SUCCINATE) take one tab po at the onset of headache. may repeat dose x one if no releif after two hours. #15[Tablet] x 0 Entered and Authorized by: Francesco Ritchie MD Method used: Electronically to [facility] (retail) [address] [place] [address] RxID: [id number] OMEPRAZOLE 20 MG ORAL TABLET DELAYED RELEASE (OMEPRAZOLE) One tablet by mouth every day #30[Tablet] x 2 Route:ORAL Entered and Authorized by: Francesco Ritchie MD Method used: Electronically to [facility] (retail) [address] [place] [address] Note to Pharmacy: Route: ORAL; RxID: [id number] DOXYCYCLINE MONOHYDRATE 100 MG ORAL TABLET (DOXYCYCLINE MONOHYDRATE) take one tablet by mouth twice daily x 5 days #10[Tablet] x 0 Route:ORAL Entered by: Demetria Elliott MA Authorized by: Mavis DIEGO Method used: Electronically to [facility] (retail) [address] [place] [address] RxID: [id number] signed by Francesco Ritchie MD on 09/22/2019 at 5:42 PM Name Value Range Interpretation Code Description Data [place] rce(s) Supporting Document(s) ID Date Data Source [id number] 09/10/2019 10:45:00 PM EDT [facility] Name Value Range Interpretation Code Description Data [place] rce(s) Supporting Document(s) BG FASTING 96 mg/dL 70-[address] [facility] y Health ID Date Data Source [id number] 09/10/2019 10:45:00 PM EDT [facility] Name Value Range Interpretation Code Description Data [place] rce(s) Supporting Document(s) HCT 37.4 % 36.0-47.0 [facility] HGB 12.1 g/dL 12.0-15.5 [facility] MCH 32.4 G/DL pg 32.0-36.5 [facility] MCHC 30.2 PG % 27.0-33.0 [facility] PLATELETS 244 10 10*3/mm3 150-450 N [facility] RBC 4.01 10 10*6/mm3 4.00-5.40 [facility] RDW 12.8 % 11.5-14.5 [facility] WBC TOTAL 4.9 4.0-10.0 [facility] ID Date Data Source [id number] 05/20/2019 11:42:55 AM EDT [facility] Measurements & CalculationsHeight: 61 inches (5 ft. 1 in.) 154.94 cm Weight: 160 pounds 72.73 kg Body Mass Index (BMI): 30.34BMI Interpretation: ObeseBody Surface Area (BSA): 1.72Weight Management Education Done (Nutrition/Physical Activity)Vital SignsTemperature: 97.0FPulse Rate: 96 beats/minuteRespiratory Rate: 16 respirations/minuteBlood Pressure: 106/72 O2 Saturation: 94% Vital Signs performed by: Kassidy Haque LPN, May 20, 2019 11:44 AMVital Signs performed by: Kassidy Haque LPN, May 20, 2019 11:44 AMInitial Intake Information from: patientRoom #: 8Smoking, Tobacco, Vaping or Smoke Exposure StatusSmoke Status: current every day smokerTobacco Use: YesAdv to Quit: YesDo you vape? NoPassive Smoke Exposure: YesMenstrual HistoryLast Menstrual Period (LMP): 05/15/2019LMP History: ApproximateAny possibility of ? NoHealthcare HistorySince your last office visit...Have you been admitted to the hospital? NoHave you been to an emergency room (ER) or urgent care clinic? NoHave you seen another healthcare provider? Yes - [facility] [facility] Have you seen a dentist? NoRate Your HealthIn general, would you say your health is? FairPain AssessmentAre you currently having any pain which... You would like your provider to address? Yes Affects your activity level? YesDepression Screening - PHQ-2Over the last two weeks, have you... Had little interest or pleasure in doing things? Not at all Been feeling down, depressed, or hopeless? Not at all PHQ-2 Score: 0Anxiety Screening - ROX-2Over the last two weeks, have you been... Feeling nervous, anxious, or on edge? Not at all Unable to stop or control worrying? Not at all ROX-2 Score: 0Food InsecurityWithin the past year...Did you worry whether your food would run out before you got money to buy more? NoWas there a time when the food you bought didn't last and you didn't have money to get more? NoInfectious Disease / Travel ScreeningRecent travel for you or any close contacts? NoHave you had any close contact with anyone diagnosed with or under investigation for COVID-19 (coronavirus)? NoHave you had any of the following symptoms recently? Fever? NoRespiratory symptoms: cough, cold, congestion, shortness of breath, difficulty breathing? NoPain AssessmentPain ScaleNumeric Rating Scale: 10 / 10Location: Right wrist and Hand Duration: months Frequency: DailyCharacter/Quality: aching. numbnessIs the pain radiating? YesTo what body part(s) is the pain radiating? up arm Screening, Brief Intervention, & Referral to Treatment (SBIRT)Pre-Screening Questions How many times have you have 4 or more drinks in a day? 0How many times have you used an illegal drug or used a prescription medication for a non-medical reason? 2Performed by: Kassidy Haque LPN, May 20, 2019 11:53 AMDAST Have you used drugs other than those required for medical reasons? No Do you abuse more than one drug at a time? No Are you always able to stop using drugs when you want to? Yes Have you ever had blackouts or flashbacks as a result of drug use? Yes Do you ever feel bad or guilty about your drug use? Yes Does your spouse (or parents) ever complain about your involvement with your drugs? No Have you neglected your family because of your use of drugs? No Have you engaged in illegal activities in order to obtain drugs? No Have you ever experienced withdrawal symptoms (felt sick) when you stopped taking drugs? No Have you had medical problems as a result of your drug use (e.g. memory loss, hepatitis, convulsions, bleeding)? YesToday's Results: DAST Score: 3 DAST Interpretation: Brief TreatmentPatient History Medical History:AnemiaAnxiety DisorderDepressionSeizure Disordersubstance abuseSurgical History:hernia umbical 2013Family History:Family History of AlcoholismFH of Anesthetic ComplicationsFH DepressionFH DiabetesFH Heart DiseaseFH High CholesterolFH SeizuresFH Uterine CancerSocial/Personal History: Advised to Quit/Tobacco Education: YesChief Complaintabscess on right forearm and side of rght foot History of Present Illness (HPI)33 yo female here for concerns of redness and swelling to right forearm and right foot. Pt states IV drug use 4 days ago. pt states injected with "Francesca"Pt states have used warm compresses but still pain and swelling at injection site.Pt denies fevers, Pt denies SOB, Pt denies Dizziness. Pt denies chest pain. Pt states had relapse ut now realize that it was a mistake. Pt refused the need for inpatient mental health. Pt Presently in a Suboxone program with Dr Mao. HPI performed by: Mavis DIEGO, May 20, 2019 12:08 PMTransitions of Care InboundProblem ReviewProblem List was reviewed and/or updated during this visit.Medication Reconciliation & ReviewMedication List was reviewed and/or updated during this visit, including review of any akhl-pqi-mmjrrwq medications, herbal therapies, and/or supplements.Allergy ReviewAllergy List was reviewed and/or updated during this visit.Adult Preventive CareProvider Calculated and Reviewed all Clinical Protocols for patient today. Screening Tobacco Screening: Smoking Status: current every day smoker (05/20/2019) Tobacco Use: Currently (05/20/2019) Advised to Quit: Yes (05/20/2019)Labs/Meds/Other Counseling-Nutrition and Physical Activity:BMI Interpretation: Obese (05/20/2019) Counseling: Done (05/20/2019) Physical Activity: Done (05/20/2019)Review of Systems General: Denies loss of appetite, chills, dizziness, fatigue, fever, continued fever, headache, feeling ill, sweats, night sweats, sleep disturbances, weight loss. Eyes: Denies blurring of vision, double vision, irritation, discharge, vision loss, eye pain, eye swelling, droopy eyelid, sensitivity to light, redness, itching. Ears/Nose/Throat: Denies earache, ear discharge, ringing in ears, decreased hearing, nasal congestion, nosebleeds, runny nose, sore throat, hoarseness, difficulty swallowing, dry mouth, tooth pain, bleeding gums, swollen glands. Cardiovascular: Denies chest pain, palpitations, feeling faint, trouble breathing w/exertion, SOB upon lying down, SOB at night, peripheral edema, elevated blood pressure, decreased heart rate. Respiratory: Denies cough, difficulty breathing, shortness of breath, excessive sputum, coughing up blood, wheezing, chest pain. Gastrointestinal: Denies nausea, vomiting, diarrhea, constipation. Genitourinary: Denies urinary incontinence, pain with urination, burning with urination, urinary frequency, urinary hesitancy, urinary urgency, urinary urgency at night, incomplete emptying, blood in urine. Musculoskeletal: Denies back pain, joint pain, leg pain, joint swelling, body aches, muscle aches, muscle cramps, muscle weakness, stiffness, recent injury. Skin: Complains of redness. Denies rash, hives, itching, dryness, nail changes, suspicious lesions, athlete's foot, rash on palms, rash on bottom of feet. right forearm, right foot. Neurologic: Denies muscle impairment, weakness, numbness/tingling, seizures, slurred speech, feeling faint, tremors, vertigo, paralysis on one side, paralysis on both sides. Psychiatric: Denies depression, anxiety, memory loss, mental disturbance, suicidal ideation, homicidal ideation, hallucinations, paranoia, feeling stressed, hearing voices. Endocrine: Denies cold intolerance, heat intolerance, excessive thirst, excessive hunger, excessive urination, weight loss, weight gain. Physical ExamGeneral Appearance: well nourished, well hydrated, no acute distressEyes, External: conjunctivae and lids normal, EOMIRespiratory, Auscultation: clear to auscultation bilaterally; no rales, rhonchi, or wheezesRespiratory, Effort: no intercostal retractions or use of accessory musclesCardiovascular, Auscultation: S1, S2 audible; no murmur, rub, or gallop; RRRPeripheral Circulation: no clubbing, cyanosis, edema, or varicositiesAbdomen: soft, non-tender, no masses, bowel sounds normalGait & Station: normalSkin, Inspection: redness/ superficial swelling to right forarm and right foot/ anteria tibiaOrientation: oriented to time, place, and personMood & Affect: no depression, anxiety, or agitationJudgment & Insight: intactCare Management Plan Transitions of CareInboundRate Your HealthIn general, would you say your health is? FairAssessment & Plan Problems:Added: Phlebitis and thrombophlebitis of unspecified site (UFN10-N69.9): right AC and right tibia Assessment: Instructions: May continue warm compresses 3-4 times daily as needed. Please try to keep extremities elevated. We have sent a prescription to your pharmacy today. Please take medication as prescribed. Please report any major side effects.Phlebitis and thrombophlebitis of unspecified site (KOX06-Y82.9): right AC and right tibia Assessment: right foot and right forearmAssessed:Tobacco use (ICD-305.1) (IWK53-G63.0) Assessment: Instructions: Please continue to try to quit smoking.Health Screening (ICD-V70.0) (ZLQ68-F58.9) Assessment: Instructions: Fasting labs ordered for you today. Please return prior to your next visit to have labs drawn. Please fast for 8-10 hours prior.Substance abuse (ICD-305.90) (XEJ95-Z16.10) Assessment: Instructions: Please try to avoid the use of illicit substance. Please continue to follow with Dr Mao as scheduled.Patient Instructions/Care Plan: Phlebitis and thrombophlebitis of unspecified site: May continue warm compresses 3-4 times daily as needed. Please try to keep extremities elevated. We have sent a prescription to your pharmacy today. Please take medication as prescribed. Please report any major side effects.Tobacco use: Please continue to try to quit smoking.Health Screening: Fasting labs ordered for you today. Please return prior to your next visit to have labs drawn. Please fast for 8-10 hours prior.Substance abuse: Please try to avoid the use of illicit substance. Please continue to follow with Dr Mao as scheduled. Plan developed in collaboration with patient and/or familyMedications:DOXYCYCLINE MONOHYDRATE 100 MG ORAL TABLETFLUCONAZOLE 150 MG ORAL TABLETCHLORPROMAZINE HCL 50 MG ORAL TABLETDIPHENHYDRAMINE HCL 50 MG ORAL CAPSULESUMATRIPTAN SUCCINATE 50 MG ORAL TABLETATOMOXETINE HCL 40 MG ORAL CAPSULE AMITRIPTYLINE HCL 75 MG ORAL TABLETBETAMETHASONE DIPROPIONATE 0.05 % EXTERNAL CREAMNAPROSYN TABLETLEVETIRACETAM 1000 MG ORAL TABLETGABAPENTIN 400 MG ORAL CAPSULEMedication Changes:New Prescription:DOXYCYCLINE MONOHYDRATE 100 MG ORAL TABLET-take one tablet by mouth twice daily x 5 days Qty: 10[Tablet] Refills: 0 Method: ElectronicRemoved:CEFDINIR 300 MG ORAL CAPSULE-1 po bid, RISPERDAL 3 MG ORAL TABLET-1 tab po in am, OXCARBAZEPINE 300 MG ORAL TABLET-take 3 tabs po at bedtime once dailyAllergies:PENICILLIN (Critical)BACTRIM (Critical)* SULFA ANTIBIOTICS (Critical)Orders:COMP METABOLIC PANEL [CPT-23244] CBC W/DIFF [CPT- 63377] HgBA1c [CPT-36411] LIPID PANEL [CPT-62297] TSH [CPT-92111] T-4 free [CPT- 59487] Vitamin D 250H Unspecified [CPT-23809] URINALYSIS [CPT-55890] VITAMIN B- 12 [CPT-16669] Folate (Folic Acid Serum) [CPT-91833] IRON [CPT-24815] Adult - Ofc Vst, EST, Level III [CPT-83681] Follow-Up Return to clinic: 2-3 weeks for follow up Additional Follow-Up: If symptoms worsen, please return to clinic or the ERClinical Visit Summary CompletedMedications:DOXYCYCLINE MONOHYDRATE 100 MG ORAL TABLET (DOXYCYCLINE MONOHYDRATE) take one tablet by mouth twice daily x 5 days #10[Tablet] x 0 Route:ORAL Entered and Authorized by: Mavis DIEGO Method used: Electronically to [facility] (retail) [address] [place] [address] Note to Pharmacy: Route: ORAL; Indications: PHLEBITIS AND THROMBOPHLEBITIS OF UNSPECIFIED SITE RxID: [id number] signed by Mavis DIEGO on 05/24/2019 at 11:37 PM ____ Name Value Range Interpretation Code Description Data [place] rce(s) Supporting Document(s) Procedure Social History Code Duration Value Status Description Data Source(s ) Smoking 03/01/2020 12:00:00 AM EST Current Smoker completed Curre nt Smoker eCW1 ([facility]) Smoking 03/01/2020 12:00:00 AM EST Current Smoker completed Curre nt Smoker eCW1 ([facility]) Smoking 03/01/2020 12:00:00 AM EST Current Smoker completed Curre nt Smoker eCW1 ([facility]) Smoking 02/18/2020 12:00:00 AM EST Current Smoker completed Curre nt Smoker eCW1 ([facility]) Smoking 12/24/2019 12:00:00 AM EDT Current Smoker completed Curre nt Smoker eCW1 ([facility]) Smoking 12/24/2019 12:00:00 AM EDT Current Smoker completed Curre nt Smoker eCW1 ([facility]) Smoking 12/24/2019 12:00:00 AM EDT Current Smoker completed Curre nt Smoker eCW1 ([facility]) Smoking 12/24/2019 12:00:00 AM EDT Current Smoker completed Curre nt Smoker eCW1 ([facility]) Smoking 12/24/2019 12:00:00 AM EDT Current Smoker completed Curre nt Smoker eCW1 ([facility]) Smoking 12/24/2019 12:00:00 AM EDT Current Smoker completed Curre nt Smoker eCW1 ([facility]) Smoking 12/24/2019 12:00:00 AM EDT Current Smoker completed Curre nt Smoker eCW1 ([facility]) Smoking 10/31/2019 12:00:00 AM EDT Current Smoker completed Curre nt Smoker eCW1 ([facility]) Smoking 10/31/2019 12:00:00 AM EDT Current Smoker completed Curre nt Smoker eCW1 ([facility]) Smoking 10/31/2019 12:00:00 AM EDT Current Smoker completed Curre nt Smoker eCW1 ([facility]) Vital Signs ID Date Data Source UNK Name Value Range Interpretation Code Description Data Source(s) Oxygen saturation in Arterial blood by Pulse oximetry 99 % 99 % eCW1 ([facility]) Respiratory rate 18 /min 18 /min eCW1 ([facility][note 3]) Heart rate 93 /min 93 /min eCW1 ([facility]) Body mass index (BMI) [Ratio] 35.27 kg/m2 35.27 kg/m2 eCW1 ([facility]) Body weight 180.6 [lb_av] 180.6 [lb_av] eCW1 ([facility]) Body height 60 [in_i] 60 [in_i] eCW1 ([facility]) Oxygen saturation in Arterial blood by Pulse oximetry 97 % 97 % eCW1 ([facility]) Respiratory rate 18 /min 18 /min eCW1 ([facility][note 3]) Heart rate 89 /min 89 /min eCW1 ([facility]) Body mass index (BMI) [Ratio] 36.48 kg/m2 36.48 kg/m2 eCW1 ([facility]) Body weight 186.8 [lb_av] 186.8 [lb_av] eCW1 ([facility]) Body height 60 [in_i] 60 [in_i] eCW1 ([facility]) Body height 60 [in_i] 60 [in_i] eCW1 ([facility]) Oxygen saturation in Arterial blood by Pulse oximetry 98 % 98 % eCW1 ([facility]) Respiratory rate 18 /min 18 /min eCW1 ([facility][note 3]) Heart rate 86 /min 86 /min eCW1 ([facility]) Body temperature 98.0 [degF] 98.0 [degF] eCW1 ( [facility]) Body mass index (BMI) [Ratio] 32.10 kg/m2 32.10 kg/m2 eCW1 ([facility]) Body weight 164.4 [lb_av] 164.4 [lb_av] eCW1 ([facility]) Oxygen saturation in Arterial blood by Pulse oximetry 99 % 99 % eCW1 ([facility]) Respiratory rate 18 /min 18 /min eCW1 ([facility][note 3]) Heart rate 100 /min 100 /min eCW1 ([facility]) Body temperature 98.7 [degF] 98.7 [degF] eCW1 ( [facility]) Body mass index (BMI) [Ratio] 30.70 kg/m2 30.70 kg/m2 eCW1 ([facility]) Body weight 157.2 [lb_av] 157.2 [lb_av] eCW1 ([facility]) Body height 60 [in_i] 60 [in_i] eCW1 ([facility]) ID Date Data Source [id number] 12/26/2019 01:56:00 PM EDT [facility] Name Value Range Interpretation Code Description Data Source(s) WEIGHT 72.3 kilos 72.3 kilos [facility] HEIGHT 152.4 centimeters 152.4 centimeters [facility] WEIGHT 75 kilos 75 kilos [facility] HEIGHT 152.4 centimeters 152.4 centimeters [facility] ID Date Data Source [id number] 12/10/2019 06:07:00 AM EDT [facility] Name Value Range Interpretation Code Description Data Source(s) WEIGHT 68 kilos [facility] HEIGHT 152.4 centimeters 152.4 centimeters [facility] WEIGHT 68.4 kilos 68.4 kilos [facility] HEIGHT 152.4 centimeters 152.4 centimeters [facility] ID Date Data Source [id number] 12/08/2019 01:43:[facility] Value Range Interpretation Code Description Data Source(s) WEIGHT 75 kilos 75 kilos [facility] HEIGHT 152.4 centimeters 152.4 centimeters [facility] ID Date Data Source [id number] 12/08/2019 01:43:[facility] Name Value Range Interpretation Code Description Data Source(s) WEIGHT 74 kilos 74 kilos [facility] HEIGHT 160.02 centimeters 160.02 centimeter [facility] Patient Treatment Plan of Care Planned Activity Planned Date Details Description Data Source (s) Clonidine Hydrochloride 0.2 MG Oral Tablet 12/24/2019 12:00:00 AM E DT eCW1 ([facility]) Clonidine Hydrochloride 0.2 MG Oral Tablet 12/24/2019 12:00:00 AM E DT eCW1 ([facility]) Clonidine Hydrochloride 0.2 MG Oral Tablet 12/24/2019 12:00:00 AM E DT eCW1 ([facility]) Clonidine Hydrochloride 0.2 MG Oral Tablet 12/24/2019 12:00:00 AM E DT eCW1 ([facility]) lisdexamfetamine dimesylate 50 MG Oral Capsule [Vyvans e] 11/04/2019 12:00:00 AM EDT eCW1 ([facility]) Clonazepam 0.5 MG Oral Tablet 11/04/2019 12:00:00 AM EDT eCW1 ([facility]) Citalopram 20 MG Oral Tablet [Celexa] 11/04/2019 12:00:00 AM EDT eCW1 ([facility]) Risperidone 3 MG Oral Tablet [Risperdal] 07/07/2019 12:00:00 AM EDT eCW1 ([facility]) Risperidone 3 MG Oral Tablet [Risperdal] 07/07/2019 12:00:00 AM EDT eCW1 ([facility]) Risperidone 2 MG Oral Tablet [Risperdal] 07/07/2019 12:00:00 AM EDT eCW1 ([facility]) Risperidone 2 MG Oral Tablet [Risperdal] 07/07/2019 12:00:00 AM EDT eCW1 ([facility]) Risperidone 3 MG Oral Tablet [Risperdal] 07/07/2019 12:00:00 AM EDT eCW1 ([facility])
--- OUTSIDE RECORDS SUMMARY | 2020-03-12 13:08 | CCD ---
Author Author [facility] Organization [facility] Address Unknown Phone Unavailable Care Team Providers Care Matching Machine Operator Name Role Phone Kori FLORES Unavailable Unavailable [...] Unavailable LESTER, MATIAS PA Unavailable Unavailable LESTER, MAITAS PA Unavailable Unavailable LESTER, MATIAS PA Unavailable [...] Unavailable LESTER, MATIAS PA Unavailable Unavailable Jeremie HOGAN MD Unavailable Unavailable Jeremie HOGAN MD Unavailable Unavailable Jeremie HOGAN MD Unavailable Unavailable JESICA, @ [facility] Unavailable Unavailable BEHZAD HOGAN MD Unavailable Unavailable Ching, Reginah W Kassidy ADMITTING MANAGER-C Unavailable Unavailabl e Ching, Reginah W Kassidy ADMITTING MANAGER-C Unavailable Unavailabl e Ching, Reginah W Kassidy ADMITTING MANAGER-C Unavailable Unavailabl e Ching, Reginah W Kassidy ADMITTING MANAGER-C Unavailable Unavailabl e Ching, Reginah W Kassidy ADMITTING MANAGER-C Unavailable Unavailabl e Ching, Reginah W Kassidy ADMITTING MANAGER-C Unavailable Unavailabl e Ching, Reginalisa W Kassidy ADMITTING MANAGER-C Unavailable Unavailabl e Ching, Reginah W Kassidy ADMITTING MANAGER-C Unavailable Unavailabl e Ching, Reginah W Kassidy ADMITTING MANAGER-C Unavailable Unavailabl e Ching, Reginah W Kassidy ADMITTING MANAGER-C Unavailable Unavailabl e Ching, Reginah W Kassidy ADMITTING MANAGER-C Unavailable Unavailabl e Ching, Reginah W Kassidy ADMITTING MANAGER-C Unavailable Unavailabl e Ching, Reginah W Kassidy ADMITTING MANAGER-C Unavailable Unavailabl e Ching, Reginah W Kassidy ADMITTING MANAGER-C Unavailable Unavailabl e Ching, Reginah W Kassidy ADMITTING MANAGER-C Unavailable Unavailabl e Ching, Reginah W Kassidy ADMITTING MANAGER-C Unavailable Unavailabl e Ching, Elijah Yi ADMITTING MANAGER-C Unavailable Unavailabl e Ching, Elijah Yi ADMITTING MANAGER-C Unavailable Unavailabl e Ching, Elijah Yi ADMITTING MANAGER-C Unavailable Unavailabl e Ching, Elijah Yi ADMITTING MANAGER-C Unavailable Unavailabl e Ching, Elijah Yi ADMITTING MANAGER-C Unavailable Unavailabl e Ching, Elijah Yi ADMITTING MANAGER-C Unavailable Unavailabl e Ching, Elijah Yi ADMITTING MANAGER-C Unavailable Unavailabl e Ching, Elijah Yi ADMITTING MANAGER-C Unavailable Unavailabl e Ching, Elijah Yi ADMITTING MANAGER-C Unavailable Unavailabl e Ching, Elijah Yi ADMITTING MANAGER-C Unavailable Unavailabl e Ching, Elijah Yi ADMITTING MANAGER-C Unavailable Unavailabl e Ching, Elijah Yi ADMITTING MANAGER-C Unavailable Unavailabl e Ching, Elijah Yi ADMITTING MANAGER-C Unavailable Unavailabl e Ching, Elijah Yi ADMITTING MANAGER-C Unavailable Unavailabl e Ching, Elijah Yi ADMITTING MANAGER-C Unavailable Unavailabl e Ching, Elijah Ballyce ADMITTING MANAGER-C Unavailable Unavailabl e Lino Marie MD Unavailable Unavailable Lino Marie [...] Unavailable Unavailable Lino Marie MD Unavailable Unavailable Frank, Lino Kahn MD [...] Unavailable Ford, M Shira PA-C Unavailable Unavailable Lester, A Mavis ADMITTING MANAGER Unavailable Unavailable Lester, A Mavis ADMITTING MANAGER Unavailable Unavailable Lester, A Mavis ADMITTING MANAGER Unavailable Unavailable Lester, A Mavis ADMITTING MANAGER Unavailable Unavailable Lester, A Mavis ADMITTING MANAGER Unavailable Unavailable Lester, A Mavis ADMITTING MANAGER Unavailable Unavailable Lester, A Mavis ADMITTING MANAGER Unavailable Unavailable Lester, A Mavis ADMITTING MANAGER Unavailable Unavailable Lester, A Mavis ADMITTING MANAGER Unavailable Unavailable Lester, A Mavis ADMITTING MANAGER Unavailable Unavailable Lester, A Mavis ADMITTING MANAGER Unavailable Unavailable Lester, A Mavis ADMITTING MANAGER Unavailable Unavailable Lester, A Mavis ADMITTING MANAGER Unavailable Unavailable Lester, A Mavis ADMITTING MANAGER Unavailable Unavailable Lester, A Mavis ADMITTING MANAGER Unavailable Unavailable Lester, A Mavis ADMITTING MANAGER Unavailable Unavailable Lester, A Mavis ADMITTING MANAGER Unavailable Unavailable Lester, A Mavis ADMITTING MANAGER Unavailable Unavailable Lester, A Mavis ADMITTING MANAGER Unavailable Unavailable Lester, A Mavis ADMITTING MANAGER Unavailable Unavailable Lester, A Mavis ADMITTING MANAGER Unavailable Unavailable Lester, A Mavis ADMITTING MANAGER Unavailable Unavailable Lester, A Mavis ADMITTING MANAGER Unavailable Unavailable Lester, A Mavis ADMITTING MANAGER Unavailable Unavailable Lester, A Mavis ADMITTING MANAGER Unavailable Unavailable Lester, A Mavis ADMITTING MANAGER Unavailable Unavailable Lester, A Mavis ADMITTING MANAGER Unavailable Unavailable Jeremie BUENO MD Unavailable Unavailable Jeremie BUENO MD Unavailable Unavailable BAY RIOS MD Unavailable Unavailable [...] Unavailable Unavailable ONDINA RAMIREZ MD Unavailable Unavailable ODNINA RAMIREZ MD Unavailable Unavailable ONDINA RAMIREZ MD Unavailable Unavailable ONDINA RAMIREZ MD Unavailable Unavailable ONDINA RAMIREZ MD Unavailable Unavailable ONDINA RAMIREZ MD Unavailable Unavailable ONDINA RAMIREZ MD Unavailable Unavailable ONDINA RAMIREZ MD Unavailable Unavailable Kori EDWARDSIE Unavailable Unavailable DESJARLAIS, KAROLYN JACKET PREPARER Unavailable Unavailable DESJARLAIS, KAROLYN JACKET PREPARER Unavailable Unavailable DESJARLAIS, KAROLYN JACKET PREPARER Unavailable Unavailable DESJARLAIS, KAROLYN JACKET PREPARER Unavailable Unavailable DESJARLAIS, KAROLYN JACKET PREPARER Unavailable Unavailable DESJARLAIS, KAROLYN JACKET PREPARER Unavailable Unavailable DESJARLAIS, KAROLYN JACKET PREPARER Unavailable Unavailable DESJARLAIS, KAROLYN JACKET PREPARER Unavailable Unavailable DESJARLAIS, KAROLYN JACKET PREPARER Unavailable Unavailable JORJE MAHESH Unavailable Unavailable LesterMavis ADMITTING MANAGER ADMITTING MANAGER Unavailable Unavailable KULWANTKATRIN Unavailable Unavailable Re-disclosure Warning [...] is protected by Article 27-F of the [facility] Public Health law. If you continue you may have access to information: Regarding HIV / AIDS; Provided by facilities licensed or operated by the [facility] Office of Mental Health; or Provided by the [facility] Office for People With Developmental Disabilities. If such information is present, then the following [facility] mandated warning applies: This information has [...] law may result in a fine or senior living sentence or both. A general authorization for the release of medical or other information is NOT sufficient authorization for further disc losure. Encounters Encounter Providers Location Date Indications Data Source(s ) Outpatient Attender: JANE EDWARD 03/11/2020 04:00:00 PM [facility] Attender: FAHAD MOONEY 03/11/2020 06:30:0 0 AM [facility] Outpatient Attender: KAROLYN VAN NP 03/09/2020 03: 40:00 PM [facility] Outpatient [facility] 03/03/2020 12:00:00 AM EST eCW1 ([facility]) Outpatient Attender: Shira Becerraferrer: Shira Youngblood PA-C EMERGENCY ROOM-LAB 03/01/2020 04:49:00 PM [facility] - 03/01/2020 04:49:00 PM [facility] Outpatient Attender: Shira Youngblood PA-C 03/01/2020 03:45 :00 PM [facility] Outpatient [facility] 03/01/2020 12:00:00 AM EST eCW1 ([facility]) Outpatient [facility] 03/01/2020 12:00:00 AM EST eCW1 ([facility]) Outpatient Attender: KAROLYN VAN JACKET PREPARER 02/18/2020 02: 40:00 PM [facility] Outpatient Attender: Kassidy SERRANO 02/18/2020 10:00:0 0 AM [facility] Outpatient [facility] 02/18/2020 12:00:00 AM EST eCW1 ([facility]) Outpatient [facility] 02/10/2020 12:00:00 AM EST eCW1 ([facility]) Outpatient [facility] 02/03/2020 12:00:00 AM EST eCW1 ([facility]) Outpatient [facility] 01/14/2020 12:00:00 AM EST eCW1 ([facility]) Outpatient [facility] 01/06/2020 12:00:00 AM EST eCW1 ([facility]) Outpatient Attender: JOHNATHON PATEL 01/02/2020 10:06:[address] [facility] Outpatient [facility] 01/02/2020 12:00:00 AM EST eCW1 ([facility]) Outpatient Attender: JANE EDWARD 01/01/2020 02:30:00 PM E [facility] Outpatient Attender: KAROLYN VAN NP 12/24/2019 11: 00:00 AM EDT [facility] Outpatient Attender: Shira Youngblood PA-C 12/24/2019 08:24 :00 AM EDT [facility] Outpatient [facility] 12/24/2019 12:00:00 AM EDT eCW1 ([facility]) Outpatient Attender: JANE EDWARD 12/23/2019 01:54:00 PM E [facility] Outpatient [facility] 12/23/2019 12:00:00 AM EDT eCW1 ([facility]) Outpatient Attender: Mavis DIEGO 12/12/2019 11:3 5:02 AM EDT [facility] Outpatient Attender: JANE EDWARD 12/11/2019 03:00:00 PM E [facility] 12/09/2019 12:00:00 AM EDT eCW1 ([facility]) Outpatient Attender: Mavis PATEL 12/05/2019 01:2 6:01 PM EDT [facility] Inpatient Attender: PRERNA RIOS MDAdmitter: PRERNA Hopson MD ER-3RD 12/05/2019 10:08:00 AM EDT - 12/10/2019 01:07:00 PM EDT [facility] Patient discharged. Outpatient Attender: NATHAN PAUL PA-C 12/05/2019 09:03:00 AM EDT [facility] Admission cancelled. Disregard status an d admitted date. Inpatient Attender: BEHZAD HOGAN MD Attender: BEHZAD HOGAN MDAttender: DIOGENES BUENO MDAttender: DIOGENES BUENO MDAdmitter: BEHZAD HOGAN MD ER-ICU 12/04/2019 11:06:00 PM EDT - 12/05/2019 10:03:00 AM EDT [facility] Patient discharged. Emergency Attender: GINGER Diazerrer: Melissa Youngblood PA-C EMERGENCY ROOM-ER 12/04/2019 04:21:00 PM EDT - 12/04/2019 08:40:00 PM EDT [facility] Patient discharged. Outpatient Attender: KAROLYN VAN NP 12/04/2019 03: 11:00 PM EDT [facility] Outpatient Attender: Mavis DIEGO FP 11/29/2019 07:0 4:03 PM EDT [facility] Outpatient Attender: JOHNATHON DIEGO FP 11/29/2019 07:04:01 P M EDT [facility] Outpatient Attender: Mavis DIEGO FP 11/24/2019 12:2 9:00 PM EDT [facility] Emergency Attender: EVONNE Lackeyant: STAFF NON 11/07/2019 12:19:00 AM EDT - 11/07/2019 04:20:00 AM EDT [facility] Patient discharged. Outpatient [facility] 11/07/2019 12:00:00 AM EDT eCW1 ([facility]) Outpatient Attender: Mavis DIEGO FP 11/04/2019 02:2 6:02 PM EDT [facility] Outpatient Attender: KAROLYN VAN NP 11/04/2019 11: 40:00 AM EDT [facility] Outpatient Attender: Mavis DIEGO FP 11/02/2019 01:2 6:00 PM EDT [facility] Outpatient Attender: Mavis DIEGO FP 10/31/2019 06:0 2:00 PM EDT [facility] Outpatient Attender: JOHNATHON DIEGO FP 10/31/2019 06:01:59 P M EDT [facility] Outpatient Attender: Mavis DIEGO FP 10/31/2019 06:0 1:03 PM EDT [facility] Outpatient Attender: JOHNATHON DIEGO FP 10/31/2019 06:01:01 P M EDT [facility] Outpatient Attender: Shira Youngblood PA-C 10/31/2019 09:06 :00 AM EDT [facility] Outpatient [facility] 10/31/2019 12:00:00 AM EDT eCW1 ([facility]) Outpatient Attender: JANE EDWARD 10/27/2019 11:00:00 AM E [facility] Outpatient Attender: KAROLYN VAN NP 10/21/2019 03: 20:00 PM EDT [facility] Emergency Attender: EVONNE TURRINConsultant: STAFF NON 10/09/2019 02:09:00 AM EDT - 10/09/2019 03:44:00 AM EDT [facility] ital Patient discharged. Outpatient Attender: KATRIN BLUM 10/06/2019 09:37:00 AM ED T [facility] Outpatient Attender: Mavis DIEGO FP 09/25/2019 04:0 9:01 PM EDT [facility] Outpatient Attender: Mavis DIEGO FP 09/25/2019 04:0 7:[address] [facility] Outpatient Attender: JOHNATHON DIEGO FP 09/23/2019 10:31:[address] [facility] Outpatient Attender: JOHNATHON DIEGO FP 09/23/2019 10:30:[address] [facility] Outpatient Attender: JOHNATHON DIEGO FP 09/23/2019 12:02:[address] [facility] Outpatient Attender: JOHNATHON DIEGO FP 09/22/2019 05:44:[address] [facility] Outpatient Attender: Mavis DIEGO FP 09/22/2019 05:4 2:[address] [facility] Outpatient Attender: JOHNATHON DIEGO FP 09/22/2019 02:38:00 P M EDT [facility] Outpatient Attender: Mavis DIEGO FP 09/22/2019 12:0 5:01 PM EDT [facility] Outpatient Attender: JOHNATHON DIEGO FP 09/22/2019 07:56:[address] [facility] Outpatient Attender: Mavis DIEGO FP 09/16/2019 05:0 8:[address] [facility] Outpatient Attender: Mavis DIEGO FP 09/14/2019 05:1 9:00 PM EDT [facility] Outpatient Attender: JOHNATHON DIEGO FP 09/14/2019 05:19:[address] [facility] Outpatient Attender: Mavis DIEGO FP 09/12/2019 11:5 3:[address] [facility] Outpatient Attender: Mavis DIEGO FP 09/10/2019 11:0 6:[address] [facility] Outpatient Attender: JOHNATHON DIEGO FP 09/10/2019 11:06:01 P M EDT [facility] Outpatient Referrer: Femi Marie MD 08/15/2019 05:44:00 A M EDT [facility] Outpatient Attender: Mavis DIEGO FP 08/06/2019 09:5 2:01 AM EDT [facility] Outpatient Attender: JOHNATHON DIEGO FP 08/05/2019 07:41:16 P M EDT [facility] Outpatient Attender: Mavis DIEGO FP 08/05/2019 09:2 3:03 AM EDT [facility] Outpatient Attender: JOHNATHON DIEGO FP 08/05/2019 09:23:01 A M EDT [facility] Outpatient Attender: KATRIN BLUM 08/04/2019 09:42:00 AM ED [facility] Outpatient Attender: Mavis DIEGO FP 08/01/2019 10:3 1:00 AM EDT [facility] Outpatient Attender: Mavis DIEGO FP 08/01/2019 10:2 7:02 AM EDT [facility] Outpatient Attender: JOHNATHON DIEGO FP 07/30/2019 11:31:01 A M EDT [facility] Outpatient Attender: KATRIN BLUM 07/07/2019 03:30:00 PM ED [facility] Outpatient Attender: Mavis DIEGO FP 07/04/2019 10:3 3:02 AM EDT [facility] Outpatient Attender: Mavis DIEGO FP 07/03/2019 01:5 2:01 PM EDT [facility] Outpatient Attender: Mavis DIEGO FP 07/02/2019 10:2 8:02 AM EDT [facility] Outpatient Attender: Mavis DIEGO FP 07/01/2019 09:5 7:00 AM EDT [facility] Outpatient Attender: JOHNATHON DIEGO FP 07/01/2019 08:57:00 A M EDT [facility] Outpatient Referrer: Femi Marie MD 07/01/2019 04:55:00 A M EDT [facility] Outpatient Attender: JOHNATHON DIEGO FP 06/30/2019 04:21:00 P M EDT [facility] Outpatient Attender: Mavis DIEGO FP 06/22/2019 06:0 1:59 PM EDT [facility] Outpatient Attender: Mavis Lester DIEGO FP 06/17/2019 03:3 2:01 PM EDT [facility] Outpatient Attender: JOHNATHON Lester JOHNATHON FP 05/27/2019 12:22:00 P M EDT [facility] Outpatient Attender: Mavisra Batista JOHNATHON FP 05/24/2019 11:3 7:01 PM EDT [facility] Outpatient Attender: JOHNATHON Lester JOHNATHON FP 05/20/2019 12:36:01 P M EDT [facility] Outpatient Attender: JOHNATHON DIEGO FP 05/20/2019 11:56:00 A M EDT [facility] Outpatient Attender: JOHNATHON DIEGO FP 05/20/2019 11:42:01 A M EDT [facility] Outpatient Attender: JOHNATHON DIEGO FP 05/01/2019 03:31:[address] [facility] Outpatient Attender: Mavis DIEGO FP 04/28/2019 10:4 4:[address] [facility] Outpatient Attender: KATRIN BLUM 04/21/2019 10:29:00 AM [facility] Outpatient Attender: JOHNATHON DIEGO FP 04/15/2019 12:44:[address] [facility] Outpatient Attender: MAHESH RECINOS 02/24/2019 01:46:00 PM [facility] Outpatient Attender: JANE EDWARD 02/21/2019 10:00:00 AM [facility] Outpatient Attender: JOHNATHON DIEGO FP 02/18/2019 09:01:[address] [facility] Outpatient Attender: MAHESH RECINOS 02/10/2019 02:18:00 PM [facility] Outpatient Attender: MAHESH RECINOS 01/20/2019 04:26:00 PM [facility] Outpatient Attender: JOHNATHON DIEGO FP 01/16/2019 02:34:[address] [facility] Inpatient Attender: CHAO GUERRA MDAttdoug harjinder: PRERNA RIOS MDAdmitter: PRERNA RIOS MD ER-3RD 12/23/2018 04:01:00 PM EDT - 12/26/2018 01:22:00 PM EDT [facility] Patient discharged. Inpatient Attender: ONDINA RAMIREZ MDAdmitter: ONDINA RAMIREZ MD E R-ICU 12/19/2018 05:26:00 PM EDT - 12/23/2018 03:42:00 PM EDT [facility] Patient discharged. Emergency Attender: MATIAS BATISTA ME EMERGENCY ROOM-ER 03:51:00 PM EDT - 12/19/2018 04:47:00 PM EDT [facility] Patient discharged. Medications Medication Brand Name Start Date Product Form Dose Route Admi nistrative Instructions Pharmacy Instructions Status Indications Reaction Description Data Source(s) 8-2 mg 03/03/2020 12:00:00 AM EST film [address] TWO FILMS UNDER THE TONGUE EVERY DAY MAXIMUM DAILY DOSE = 2 PLACE TWO FILMS UNDER THE TONGUE EVERY D AY MAXIMUM DAILY DOSE = 2 SOLD: 03/03/2020 [facility] 300 mg 01/27/2020 12:00:00 AM EST [...] activ e Clonidine HCl 0.2 MG eCW1 ([facility] jimena) Clonidine Hydrochloride 0.2 MG Oral Tablet Clonidine H Cl 0.2 MG Clonidine HCl 0.2 MG 12/24/2019 12:00:00 AM EDT 1.0 {tablet} activ e Clonidine HCl 0.2 MG eCW1 ([facility] jimena) Clonidine Hydrochloride 0.2 MG Oral Tablet Clonidine H Cl 0.2 MG Clonidine HCl 0.2 MG 12/24/2019 12:00:00 AM EDT 1.0 {tablet} activ e Clonidine HCl 0.2 MG eCW1 ([facility] jimena) Clonidine Hydrochloride 0.2 MG Oral Tablet Clonidine H Cl 0.2 MG Clonidine HCl 0.2 MG 12/24/2019 12:00:00 AM EDT 1.0 {tablet} suspe nded Clonidine HCl 0.2 MG eCW1 ([facility] jimena) Clonidine Hydrochloride 0.2 MG Oral Tablet Clonidine H Cl 0.2 MG Clonidine HCl 0.2 MG 12/24/2019 12:00:00 AM EDT 1.0 {tablet} activ e Cl[facility] Hydrochloride 0.2 MG Oral Tablet Clonidine H Cl 0.2 MG Clonidine HCl 0.2 MG 12/24/2019 12:00:00 AM EDT 1.0 {tablet} activ e Clonidine HCl 0.2 MG eCW1 ([facility] jimena) Clonidine Hydrochloride 0.2 MG Oral Tablet Clonidine H Cl 0.2 MG Clonidine HCl 0.2 MG 12/24/2019 12:00:00 AM EDT 1.0 {tablet} activ e Clonidine HCl 0.2 MG eCW1 ([facility] jimena) Clonidine Hydrochloride 0.2 MG Oral Tablet Clonidine H Cl 0.2 MG Clonidine HCl 0.2 MG 12/24/2019 12:00:00 AM EDT 1.0 {tablet} suspe nded Clonidine HCl 0.2 MG eCW1 ([facility] jimena) Clonidine Hydrochloride 0.2 MG Oral Tablet Clonidine H Cl 0.2 MG Clonidine HCl 0.2 MG 12/24/2019 12:00:00 AM EDT 1.0 {tablet} suspe nded Clonidine HCl 0.2 MG [facility] Clonidine Hydrochloride 0.2 MG Oral Tablet Clonidine H Cl 0.2 MG Clonidine HCl 0.2 MG 12/24/2019 12:00:00 AM EDT 1.0 {tablet} activ e Clonidine HCl 0.2 MG eCW1 ([facility] jimnea) Clonidine Hydrochloride 0.2 MG Oral Tablet Clonidine H Cl 0.2 MG Clonidine HCl 0.2 MG 12/24/2019 12:00:00 AM EDT 1.0 {tablet} activ e Clonidine HCl 0.2 MG eCW1 ([facility] jimena) 300 mg 12/13/2019 12:00:00 AM [...] {tablet_at_bedtime} active Clonazepam 0 .5 MG eCW1 ([facility]) Clonazepam 0.5 MG Oral Tablet Clonazepam 0.5 MG 11/04/2019 12:00:00 AM EDT 1.0 {tablet_at_bedtime} active Clonazepam 0 .5 MG eCW1 ([facility]) lisdexamfetamine dimesylate 50 MG Oral Capsule [Vyvans e] Vyvanse 50 MG Vyvanse 50 MG 11/04/2019 12:00:00 AM EDT 1.0 {capsule_in_the_morning} active Vyvanse 50 MG eCW1 ([facility]) Citalopram 20 MG Oral Tablet [Celexa] Celexa 20 MG Celexa 20 MG 11/04/2019 12:00:00 AM EDT 1.0 {tablet} active Ce elise 20 MG eCW1 ([facility]) Citalopram 20 MG Oral Tablet [Celexa] Celexa 20 MG Celexa 20 MG 11/04/2019 12:00:00 AM EDT 1.0 {tablet} active Ce elise 20 MG eCW1 ([facility]) lisdexamfetamine dimesylate 50 MG Oral Capsule [Vyvans e] Vyvanse 50 MG Vyvanse 50 MG 11/04/2019 12:00:00 AM EDT 1.0 {capsule_in_the_morning} active Vyvanse 50 MG eCW1 ([facility]) Citalopram 20 MG Oral Tablet [Celexa] Celexa 20 MG Celexa 20 MG 11/04/2019 12:00:00 AM EDT 1.0 {tablet} active Ce elise 20 MG eCW1 ([facility]) 75 mg 11/02/2019 12:00:00 [...] 1.0 {tablet} active Risperdal 3 MG eCW1 ([facility]) Risperidone 3 MG Oral Tablet [Risperdal] Risperdal 3 MG Risp erdal 3 MG 07/07/2019 12:00:00 AM EDT 1.0 {tablet} active Risperdal 3 MG eCW1 ([facility]) Risperidone 3 MG Oral Tablet [Risperdal] Risperdal 3 MG Risp erdal 3 MG 07/07/2019 12:00:00 AM EDT 1.0 {tablet} active Risperdal 3 MG eCW1 ([facility]) Risperidone 2 MG Oral Tablet [Risperdal] Risperdal 2 MG Risp erdal 2 MG 07/07/2019 12:00:00 AM EDT 1.0 {tablet} active Risperdal 2 MG eCW1 ([facility]) Risperidone 3 MG Oral Tablet [Risperdal] Risperdal 3 MG Risp erdal 3 MG 07/07/2019 12:00:00 AM EDT 1.0 {tablet} active Risperdal 3 MG eCW1 ([facility]) Risperidone 3 MG Oral Tablet [Risperdal] Risperdal 3 MG Risp erdal 3 MG 07/07/2019 12:00:00 AM EDT 1.0 {tablet} active Risperdal 3 MG eCW1 ([facility]) Risperidone 2 MG Oral Tablet [Risperdal] Risperdal 2 MG Risp erdal 2 MG 07/07/2019 12:00:00 AM EDT 1.0 {tablet} active Risperdal 2 MG eCW1 ([facility]) Risperidone 3 MG Oral Tablet [Risperdal] Risperdal 3 MG Risp erdal 3 MG 07/07/2019 12:00:00 AM EDT 1.0 {tablet} active Risperdal 3 MG eCW1 ([facility]) Risperidone 3 MG Oral Tablet [Risperdal] Risperdal 3 MG Risp erdal 3 MG 07/07/2019 12:00:00 AM EDT 1.0 {tablet} active Risperdal 3 MG eCW1 ([facility]) Risperidone 3 MG Oral Tablet [Risperdal] Risperdal 3 MG Risp erdal 3 MG 07/07/2019 12:00:00 AM EDT 1.0 {tablet} active Risperdal 3 MG eCW1 ([facility]) Risperidone 3 MG Oral Tablet [Risperdal] Risperdal 3 MG Risp erdal 3 MG 07/07/2019 12:00:00 AM EDT 1.0 {tablet} active Risperdal 3 MG eCW1 ([facility]) Risperidone 3 MG Oral Tablet [Risperdal] Risperdal 3 MG Risp erdal 3 MG 07/07/2019 12:00:00 AM EDT 1.0 {tablet} active Risperdal 3 MG eCW1 ([facility]) Risperidone 2 MG Oral Tablet [Risperdal] Risperdal 2 MG Risp erdal 2 MG 07/07/2019 12:00:00 AM EDT 1.0 {tablet} active Risperdal 2 MG eCW1 ([facility]) Risperidone 3 MG Oral Tablet [Risperdal] Risperdal 3 MG Risp erdal 3 MG 07/07/2019 12:00:00 AM EDT 1.0 {tablet} active Risperdal 3 MG eCW1 ([facility]) 8-2 mg 06/27/2019 12:00:00 AM EDT film [...] type / Coverage type Policy ID Covered alliance party ID Covered alliance party's relationship to dick Policy Dick Plan Information [employer] [id number] SP [id number] [facility] MEDICAID [id number] S [id number] [place] [facility] [facility] [id number] S [id number] [facility] MEDICAID [id number] S [id number] [facility] MEDICAID [id number] S [id number] [facility](MCAID) O [id number] S [id number] Managed Care - [facility] Community Plan P [id number] S [id number] Medicaid S [id number] S [id number] [facility] [id number] SP [id number] [facility] [id number] S [id number] [facility] MCDHMO [id number] SP [id number] [employer] PLAN XIX [phone] MEDICAID [id number] SP [id number] Managed Care - [facility] Community Plan P [id number] S [id number] MEDICAID [id number] S [id number] MEDICAID [id number] S [id number] MEDICAID PROF FEES [id number] MEDICAID [id number] S [id number] [facility] [id number] S [id number] Medicaid S [id number] S [id number] Managed Care - Community Plan [facility] P [id number] S [id number] [facility] DEPT [id number] SP [id number] Medicaid P [id number] S [id number] SELF PAY ONLY [id number] SP [id number] [id number] SP [id number] [facility] DEPT [id number] SP [id number] SELF PAY UNAVAILABLE SP UNAVAILA BLE Self Pay P UNAVAILABLE S UNA[place]ILA BLE Medicaid P [id number] S [id number] [facility]ILABLE S UNAVAILA BLE Managed Care - Community Plan [facility] P [id number] S [id number] Medicaid S UNAVAILABLE S UNAVAILA BLE Problems, Conditions, and Diagnoses Code Display Name Description Problem Type Effective Dates Data Source(s) K14.6 [id number] Tongue sore Problem 03/01/2020 12:00:[address] [place]ett[place]1 ([facility]) F19.11 [id number] History of drug abuse Problem 03/01/2020 12: 00:00 AM EST eCW1 ([facility]) F19.10 [id number] Substance abuse Problem 12/24/2019 12:00:00 AM EDT eCW1 ([facility]) F50.81 [id number] Binge eating disorder Problem 11/04/2019 12: 00:00 AM EDT eCW1 ([facility]) K21.9 [id number] Gastroesophageal ref lux disease, esophagitis presence not specified Problem 10/31/2019 12:00:00 AM EDT eCW1 ([facility]) F17.200 88930229 Tobacco dependence Problem 10/31/2019 12:00: 00 AM EDT eCW1 ([facility]) E66.9 [id number] Obesity (BMI 30.0-34.9) Problem 0 10/31/2019 12:00:00 AM [facility] Z68.30 992689495 BMI 30.0-30.9,adult Problem 10/31/2019 12:00 :00 AM EDT eCW1 ([facility]) R13.12 49940349 Oropharyngeal dysphagia Problem 10/31/2019 1 2:00:00 AM EDT eCW1 ([facility]) G56.03 [id number] Carpal tunnel syndrome, bilateral Pr oblem 10/31/2019 12:00:00 AM EDT eCW1 ([facility] jimena) K92.0 Hematemesis Hematemesis - cause unknown 020 05:42:44 PM EDT [facility] I80.9 Phlebitis and thrombophlebitis of unspec ified site Phlebitis and thrombophlebitis of unspecified site 05/20/2019 12:34:09 PM EDT [facility] right AC and right tibia Z13.29 Encounter for screening for other suspec keven endocrine disorder ENCOUNTER FOR SCREENING FOR OTH SUSPECTE Diagnosis 03/01/2020 04:49:00 PM [facility] Z82.61 Family history of arthritis FAMILY HISTORY OF ARTHRITI S Diagnosis 03/01/2020 03:45:00 PM [facility] Z13.220 Encounter for screening for lipoid disor ders ENCOUNTER FOR SCREENING FOR LIPOID DISORDERS Diagnosis 03/01/2020 03[facility]45[facility] Family history of other dise ases of the musculoskeletal system and connective tissue FAMILY HISTORY OF DISEASES OF THE MS SYS AND CONNE Diagnosis 03/01/2020 03:45:00 PM [facility] R50.9 Fever, unspecified FEVER, UNSPECIFIED Diagnosis 05/2020 03:45:00 PM [facility] 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, in r emission OTHER PSYCHOACTIVE SUBSTANCE ABUSE, IN REMISSION Diagnosis 03/01/2020 03:45:00 PM [facility] G56.03 CARPAL TUNNEL SYNDROME, BILATERAL UPPER LIMBS CARPAL TUNNEL SYNDROME, BILATERAL UPPER LIMBS Diagnosis 03/01/2020 03:45:00 PM [facility] james K21.9 Gastro-esophageal reflux disease without esophagitis GASTRO-ESOPHAGEAL REFLUX DISEASE WITHOUT ESOPHAGITIS Diagnosis 02/18/2020 10:00:00 AM [facility] F11.21 Opioid dependence, in remission OPIOID DEPENDENC E, IN REMISSION Diagnosis 01/01/2020 02:30:00 PM [facility] F15.10 Other stimulant abuse, uncomplicated OTH ER STIMULANT ABUSE, UNCOMPLICATED Diagnosis 01/01/2020 02:30:00 PM [facility] l F43.12 Post-traumatic stress disorder, chronic POST-TRAUMATIC STRESS DISORDER, CHRONIC Diagnosis 01/01/2020 02:30:00 PM [facility] l F90.0 Attention-deficit hyperactivity disorder , predominantly inattentive type ATTN-DEFCT HYPERACTIVITY DISORDER, PREDOM INATTENT Diagnosis 06/2019 02:30:00 PM [facility] F50.81 BINGE EATING DISORDER BINGE EATING DISORDER Diagnosis 01/01/2020 02:30:00 PM [facility] F25.9 Schizoaffective disorder, unspecified SC HIZOAFFECTIVE DISORDER, UNSPECIFIED Diagnosis 01/01/2020 02:30:00 PM [facility] l F12.10 Cannabis abuse, uncomplicated CANNABIS ABUSE, UNCOMPLI CATED Diagnosis 12/24/2019 11:00:00 AM [facility] F11.10 Opioid abuse, uncomplicated OPIOID ABUSE, UNCOMPLICATE D Diagnosis 12/24/2019 11:00:00 AM [facility] R13.12 Dysphagia, oropharyngeal phase DYSPHAGIA, OROPHARYNGEA L PHASE Diagnosis 12/24/2019 08:24:00 AM [facility] M54.2 Cervicalgia CERVICALGIA Diagnosis 12/24/2019 08:24:00 AM [facility] T50.914D POISONING BY MULTIPLE UNSP DRUG/MEDS/BIO L SUBST, U POISONING BY MULTIPLE UNSP DRUG/MEDS/BIOL SUBST, U Diagnosis 12/24/2019 08:24:00 AM [facility] F19.10 Other psychoactive substance abuse, unco mplicated OTHER PSYCHOACTIVE SUBSTANCE ABUSE, UNCOMPLICATED Diagnosis 12/24[facility] F[facility].20 Other psychoactive substance dependence, uncomplicated OTHER PSYCHOACTIVE SUBSTANCE DEPENDENCE, UNCOMPLIC Diagnosis 12/05/2019 10:08:00 AM [facility] R45.851 Suicidal ideations SUICIDAL IDEATIONS Diagnosis 10/2019 10:08:00 AM [facility] G40.909 Epilepsy, unspecified, not intractable, without status epilepticus EPILEPSY, UNSP, NOT INTRACTABLE, WITHOUT STATUS EP Diagnosis 10/2019 10:08:00 AM [facility] F32.2 Major depressive disorder, s rito episode, severe without psychotic features MAJOR DEPRESSV DISORD, SINGLE EPSD, SEV Diagnosis 12/05/2019 10:08:00 AM [facility] F25.1 Schizoaffective disorder, depressive typ e SCHIZOAFFECTIVE DISORDER, DEPRESSIVE TYPE Diagnosis 12/05/2019 10:08:00 AM [facility] Y92.[address] or not applicable UNSPECIFIED PLACE OR NOT APPLICABLE Diagnosis 12/04/2019 11:06:00 PM [facility] X58.XXXA Exposure to other specified factors, ini tial encounter EXPOSURE TO OTHER SPECIFIED FACTORS, INITIAL ENCOU Diagnosis 12/04/2019 11:06:00 P M [facility] T42.6X2A Poisoning by other antiepile ptic and sedative-hypnotic drugs, intentional self-harm, initial encounter POISN BY OTH ANTIEPLPTC AND SED-HYPNTC DRUGS, SLF- Diagnosis 12/04/2019 11:06:00 PM [facility] james T40.902A Poisoning by unspecified psy chodysleptics [hallucinogens], intentional self-harm, initial encounter POISONING BY UNSP PSYCHODYSLEPTICS, SELF-HARM, INI Diagnosis 12/04/2019 11:06:00 PM [facility] K21.9 Gastro-esophageal reflux disease without esophagitis GASTRO-ESOPHAGEAL REFLUX DISEASE WITHOUT ESOPHAGIT Diagnosis 12/04/2019 11:06:00 PM [facility] F90.9 Attention-deficit hyperactivity disorder , unspecified type ATTENTION- DEFICIT HYPERACTIVITY DISORDER, UNSPECIF Diagnosis 12/04/2019 11:06:00 PM [facility] F43.10 Post-traumatic stress disorder, unspecif ied POST-TRAUMATIC STRESS DISORDER, UNSPECIFIED Diagnosis 12/04/2019 11:06:00 PM [facility] pital F43.23 Adjustment disorder with mixed anxiety a nd depressed mood ADJUSTMENT DISORDER WITH MIXED ANXIETY AND DEPRESS Diagnosis 12/04/2019 11:06:00 [facility] T42.4X2A Poisoning by benzodiazepines, intentiona l self-harm, initial encounter POISONING BY BENZODIAZEPINES, INTENTIONAL SELF-HARM, INIT Diagnosis 12/04/2019 11:06:00 [facility] Y93.89 Activity, other specified ACTIVITY, OTHER SPECIFIED Di agnosis 12/04/2019 04:21:00 PM [facility] Y92.[address] the place of o ccurrence of the external cause OT PLACES THE PLACE OF OCCURRENCE OF THE EXTER Diagnosis 09/2019 04:21:00 [facility] Z79.899 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 Diagnosis 12/04/2019 04:21:00 PM [facility] Z20.828 Contact with and (suspected) exposure to other viral communicable diseases CONTACT W AND EXPOSURE TO OTH VIRAL COMMUNICABLE D Diagnosis 12/04/2019 04:21:00 PM [facility] F17.210 Nicotine dependence, cigarettes, uncompl icated NICOTINE DEPENDENCE, CIGARETTES, UNCOMPLICATED Diagnosis 12/04/2019 04:21:00 PM [facility] T50.992A Poisoning by other drugs, me dicaments and biological substances, intentional self-harm, initial encounter POISONING BY OTH DRUG/MEDS/BIOL SUBST, SELF-HARM, Diagnosis 12/04/2019 04:21:00 PM [facility] R45.851 Suicidal ideations SUICIDAL IDEATIONS Diagnosis 09/2019 04:21:00 PM [facility] L89066 Nicotine dependence, cigarettes, uncompl icated Nicotine dependence, cigarettes, uncomplicated Diagnosis 11/07/2019 12:19:00 AM [facility] F1510 Other stimulant abuse, uncomplicated Other stimu lant abuse, uncomplicated Diagnosis 11/07/2019 12:19:[address] [facility] X21175 Other psychoactive substance abuse with psychoactive substance-induced anxiety disorder Other psychoactive substance abuse with psychoactive substance- induced anxiety disorder Diagnosis 11/07/2019 12:19:[address] [facility] R110 Nausea Nausea Diagnosis 11/07/2019 12:19:00 AM ED [facility] Z76.89 Persons encountering health services in other specified circumstances PERSONS ENCOUNTERING HEALTH SERVICES IN OTH CIRCUM Diagnosis 05/2019 09:06:00 AM [facility] Z71.9 Counseling, unspecified COUNSELING, UNSPECIFIED Diagno sis 10/31/2019 09:06:00 AM [facility] Z68.30 Body mass index (BMI) 30.0-30.9, adult B BOB MASS INDEX (BMI) 30.0-30.9, ADULT Diagnosis 10/31/2019 09:06:00 AM [facility] E66.9 Obesity, unspecified OBESITY, UNSPECIFIED Diagnosis 10/31/2019 09:06:00 AM [facility] R56.9 Unspecified convulsions UNSPECIFIED CONVULSIONS Diagno sis 10/31/2019 09:06:00 AM [facility] F909 Attention-deficit hyperactivity disorder , unspecified type Attention- deficit hyperactivity disorder, unspecified type Diagnosis 10/08 02:09:[address] [facility] J029 Acute pharyngitis, unspecified Acute pharyngitis, unsp ecified Diagnosis 10/09/2019 02:09:[address] [facility] F15.11 OTHER STIMULANT ABUSE, IN REMISSION OTHER STIMUL ANT ABUSE, IN REMISSION Diagnosis 02/24/2019 01:46:00 PM [facility] Z72.0 Tobacco use TOBACCO USE Diagnosis 02/21/2019 10:00:00 AM [facility] F12.11 CANNABIS ABUSE, IN REMISSION CANNABIS ABUSE, IN REMISS ION Diagnosis 02/10/2019 02:18:00 PM [facility] Surgeries/Procedures Procedure Description Date Indications Data Source(s) Psychological Tests, Neurobehavioral and Cognitive Status 12/06/2019 12:00:00 AM [facility] Introduction of Electrolytic and Water B alance Substance into Peripheral Vein, Percutaneous Approach 12/04/2019 12:00:00 AM [facility] Results ID Date Data Source [id number] 03/04/2020 12:09:00 PM [facility] Name Value Range Interpretation Code Description Data [place] rce(s) Supporting Document(s) FAZAL DIRECT Negative Negative [facility] Performed at: RN - [facility] [place] [id number] Director: Elsa Garcia MD, Phone: [phone] ID Date Data Source [id number] 03/04/2020 12:05:00 PM EST [facility] Name Value Range Interpretation Code Description Data [place] rce(s) Supporting Document(s) FAZAL Direct Negative Negative [facility] ID Date Data Source [id number] 03/03/2020 08:50:00 AM EST [facility] ADD ON TEST Name Value Range Interpretation Code Description Data [place] rce(s) Supporting Document(s) RHEUMATOID FACTOR SCREEN NEGATIVE NEGATIVE [facility] ID Date Data Source [id number] 03/03/2020 08:37:00 AM EST [facility] ADD ON TEST Name Value Range Interpretation Code Description Data [place] rce(s) Supporting Document(s) FREE T4 1.0 ng/dL 0.76-1.46 [facility] ID Date Data Source [id number] 03/03/2020 08:37:00 AM EST [facility] ADD ON TEST Name Value Range Interpretation Code Description Data [place] rce(s) Supporting Document(s) TSH 0.422 uIU/mL 0.36-3.74 [facility] ID Date Data Source [id number] 03/03/2020 08:11:00 AM EST [facility] ADD ON TEST Name Value Range Interpretation Code Description Data [place] rce(s) Supporting Document(s) C REACTIVE PROTEIN 15.6 mg/L 0.0-3.0 [facility] ID Date Data Source [id number] 03/03/2020 08:11:00 AM [facility] ADD ON TEST Name Value Range Interpretation Code Description Data [place] rce(s) Supporting Document(s) GLUCOSE 85 mg/dL 74-106 [facility] BLOOD UREA NITROGEN 11 mg/dL 7-18 [facility] ital CREATININE 0.88 mg/dL 0.6-1.0 [facility] SODIUM 135 mmol/L 136-145 L [facility] POTASSIUM 4.1 mmol/L 3.5-5.1 [facility] CHLORIDE 99 mmol/L 98-107 [facility] CO2 26 mmol/L 21-32 [facility] CALCIUM 8.8 mg/dL 8.5-10.1 [facility] ANION GAP 10.0 mmol/L 5-12 [facility] GLOMERULAR FILTRATION RATE 74 mL/min [facility] GFR IS CALCULATED IN mL/min/1.73m2 LISANDRA L FUNCTION: >90MILDLY DECREASED: 60-89MILDY TO MODERATELY DECREASED: 45-59 MODERATELY TO SEVERELY DECREASED: 30-44SEVERELY DECREASED: 15-29RENAL FAILURE: <15 AST 32 U/L 15-37 [facility] ALT 32 U/L 12-78 [facility] ALKALINE PHOSPHATASE 65 U/L 46-116 [facility] pital TOTAL BILIRUBIN 0.2 mg/dL 0.2-1.0 [facility] TOTAL PROTEIN 6.9 g/dl 6.4-8.2 [facility] ALBUMIN 3.9 gm/dL 3.4-5.0 [facility] ID Date Data Source [id number] 03/01/2020 05:46:00 PM [facility] l Name Value Range Interpretation Code Description Data [place] rce(s) Supporting Document(s) CHOLESTEROL 193 mg/dL 0-200 [facility] TRIGLYCERIDES 86 mg/dL 0-150 [facility] LDL CHOLESTEROL 111 mg/dL 0-100 H [facility] HDL CHOLESTEROL 65 mg/dL 40-60 H [facility] CHOL/HDL RATIO 3.0 0.0-5.0 [facility] ID Date Data Source [id number] 02/29/2020 10:40:00 AM EST [facility] Name Value Range Interpretation Code Description Data [place] rce(s) Supporting Document(s) SARS coronavirus 2 RNA [facility] This lab was ordered by [facility] and reported by [facility]. ID Date Data Source [id number] 12/10/2019 11:15:00 AM EDT [address] [id number] NAME: BRUNA LEE Esteban#: [id number] PHYSICIAN: PRERNA RIOS MD ADM. DATE: 12/05/19ACCOUNT #: [id number] DISCH. DATE:DISCHARGE SUMMARYIDENTIFICATION: A 34-year-old female with schizoaffective disorder,polysubstance dependence.CHIEF COMPLAINT: "I don't know why I am here."REASON FOR ADMISSION: Post- overdose.HISTORY OF PRESENT ILLNESS: The patient was interviewed in ICU after sheoverdosed. The patient was seen in [facility] for a regularconsultation, she could not answer [...] [place] time in our service with [...] ABUSE: None.SOCIAL HISTORY: The patient is from [place], did not finish high school.She was in [...] The patient was discharged with the medications Fdsbxx62 mg p.o. daily, Neurontin 600 mg p.o. [...] be enrolled in outpatient chemical dependence in [place].MENTAL STATUS EXAMINATION: The patient is pleasant, cooperative. [...] Dictated: 12/10/2019 09:34:34Date Transcribed: 12/10/2019 10:15:05JV/PUSVinnie #: [id number]: 12/10/19 0934 Electronically SignedTRANS:12/10/19 1115 PRERNA RIOS MDTRANS BY:ADE SIGNED:12/10/19REPORT COPY TO: Name Value Range Interpretation Code Description Data [place] rce(s) Supporting Document(s) ID Date Data Source [id number] 12/10/2019 06:43:00 AM EDT [facility] [place] [address] [place], [place] [address]KLKUHQH NAME: BRUNA LEE Joe Orellana#: [id number] PHYSICIAN: PRERNA RIOS, [facility]ITAL[facility] #: [id number] ADM. DATE: 12/05/19PATIENT : 89 DISCH. DATE: [50}DISCHARGE SUMMARYMHU discharge planNicotine Replacement TherapySmoking Status Current every day smokerPrescribed at discharge [facility]/Drug DisorderAlcohol or Drug Disorder medication prescribed, counseling prescribedPersonal Care InstructionsDischarge Activity: As tolerated Discharge diet: RegularFollow Up CareFollow Up:Follow up with your Primary care physicianPriority ItemsUrgent/Important items that need to be addressed at primary care follow-upappointmentDischarge InformationDISCHARGE INFORMATION* Thank you for choosing [facility] and allowing us toserve you* Our Goal is to provide the highest quality of care.* This discharge information is to help you better understand your diagnosisand medication* Avoid taking ydin-dea-ydpczvz medicines unless approved by your physician.* Take your medications as prescribed. DO NOT stop any medications unlessapproved first* Weigh yourself daily. Report any gain of 5 lbs in a week* 24 Hour Crisis HOTLINE available: Call [facility] at [phone]* Chem. Dependency: Walk in Clinics [place] ([phone]) and [place] ([phone]) anytime Sunday thru Sunday 8 to 10am. [place] ([phone]) anytimeMond thru Sunday 8 to 10am. [place] ([phone]) Sunday or Sunday from 8to 10am (Bring $30 to [facility]) SMOKIN G CESSATION* Smoking is dangerous to your health. It delays the healing process, andworks against your medications. Not smoking will improve your health* Our hospital participates with the Opt-to-Quit program. You will be contactedafter discharge by the [facility] Smoker's Quitline for support with tobaccocessation. You have the option once contacted to refuse this service.* You can also go online to www.[employer]. Free nicotine replacementsare available Attention* You should [...] rce(s) Supporting Document(s) ID Date Data Source [id number] 12/10/2019 02:15:00 AM EDT [facility] [address] [id number] NAME: BRUNA LEE#: [id number] PHYSICIAN: PRRENA RIOS MD ADM. DATE: 12/05/19PROGRESS NOTE DATE: 12/09/19 RM.#: [id number] #: [id number] NOTEIDENTIFICATION: A 34-year-old female with mood disorder [...] Dictated: 12/09/2019 10:52:52Date Transcribed: 12/10/2019 01:15:28JV/RAVJob #: [id number]: 12/09/19 1052 Electronically SignedTRANS:12/10/19 0215 PRERNA RIOS MDTRANS BY:[email or web address] SIGNED:12/10/19REPORT COPY TO: Name Value Range Interpretation Code Description Data [place] rce(s) Supporting Document(s) ID Date Data Source [id number] 12/08/2019 11:58:00 AM EDT [facility] Name Value Range Interpretation Code Description Data [place] rce(s) Supporting Document(s) URINE COLOR Yellow N [facility] UAPR Clear N [facility] UGLU Negative NEGATIVE [facility] URINE BILIRUBIN Negative NEGATIVE [facility] UKET Negative NEGATIVE N [facility] USG 1.015 1.010-1.025 [facility] UBLO Negative NEGATIVE [facility] UpH 8.0 5.0-8.0 [facility] UPRO Negative Negative [facility] UUB 0.2 mg/dL 0.2-1.0 [facility] UNIT Negative Negative [facility] ULEU Negative Negative [facility] ID Date Data Source [id number] 12/09/2019 04:57:00 AM EDT [address] [id number] NAME: BRUNA LEE#: [id number] PHYSICIAN: PRERNA RIOS MD ADM. DATE: 12/05/19PROGRESS NOTE DATE: 12/08/19 RM.#: [id number] #: [id number] NOTEIDENTIFICATION: A 34-year-old female with mood disorder, [...] Dictated: 12/08/2019 10:30:51Date Transcribed: 12/09/2019 03:57:49JV/Basia #: [id number]: 12/08/19 1030 Electronically SignedTRANS:12/09/19 0457 PRERNA RIOS MDTRANS BY:ADE SIGNED:12/09/19REPORT COPY TO: Name Value Range Interpretation Code Description Data [place] rce(s) Supporting Document(s) ID Date Data Source [id number] 12/06/2019 11:02:00 PM EDT [place], [place] [address]PATIENT NAME: BRUNA LEE Joe Orelalna#: [id number] PHYSICIAN: PRERNA RIOS MD ADM. DATE: 12/05/19ACCOUNT #: [id number] .#: [id number] ASSESSMENTIDENTIFICATION: A 34-year-old female with schizoaffective disorder andpolysubstance dependence.CHIEF COMPLAINT: "I don't know why I am here."REASON FOR ADMISSION: Post-overdose.HISTORY OF PRESENT ILLNESS: According to the records and our interview, thepatient was brought to our service after being in ICU and the medical floorfor an overdose. The patient went to the outpatient clinic in [facility] and she passed out in consultation. [...] 2 weeks ago, that she was in [place] inpatient service for 5 days forthat.The patient [...] into detail.SOCIAL HISTORY: The patient is from [place]. Did not finish high school.She is in [...] Dictated: 12/06/2019 12:22:47Date Transcribed: 12/06/2019 22:02:14JV/GBJob #: [id number]: 12/06/19 1222 Electronically Signed TRANS:12/06/19 2302 PRERNA RIOS MDTRANS BY:IATDATE SIGNED:12/07/19REPORT COPY TO: Name Value Range Interpretation Code Description Data [place] rce(s) Supporting Document(s) ID Date Data Source [id number] 12/05/2019 02:12:00 AM EDT [facility] Name Value Range Interpretation Code Description Data [place] rce(s) Supporting Document(s) CKI 109 U/L 17-150 N [facility] ID Date Data Source [id number] 12/05/2019 04:49:00 PM EDT [facility] [address] HEALTH HISTORY AND PHYSICALPATIENT NAME: BRUNA LEE MR#: [id number] PHYSICIAN: PRERNA RIOS MDAUTHOR: Diogenes Bueno MD [...] [facility]Past Medical/Surgical HistoryPast Medical/Surgical HistoryMedical ProblemsAcute [...] rce(s) Supporting Document(s) ID Date Data Source [id number] 12/05/2019 09:48:00 AM EDT [facility] [address] [id number] SUMMARYPATIENT NAME: BRUNA LEE MR#: [id number] PHYSICIAN: BEHZAD HOGAN MDAUTHOR: Diogenes Bueno MD DATE: 12/04/19 #: ICUDISCHARGE DATE: 12/05/19 : 87Summary of HospitalizationReason for AdmissionOverdose on xanax, gabapentin, bath saltsHospital Atlygz28 yo F who was admitted for an [...] and the [facility]Diagnoses (Current Visit)Problem List1. Drug overdose2. [...] taking the following medications:Gabapentin* (Neurontin*) 400 MG [id number] MILLIGRAM Orally DAILYContinue taking these medications:LEVETIRACETAM (LEVETIRACETA) 1,000 MG TABLET1,000 MILLIGRAM Orally TWICE DAILYQty = 60Amitriptyline HCl (Amitriptyline HCl) 100 MG [id number] MILLIGRAM Orally DAILYSUCRALFATE (Carafate*) 1 GM TABLET1 GM Orally TWICE DAILYcloniDINE* (CLONIDINE*) 0.1 MG TABLET0.1 MILLIGRAM Orally TWICE DAILYOmeprazole Magnesium (Prilosec Otc) 20 MG TABLET.DR20 MILLIGRAM Orally DAILYrispERIdone (RISPERDAL*) 0.5 MG TABLET2 MILLIGRAM Orally TWICE DAILYATOMOXETINE HCL (Strattera) 18 MG [id number] MILLIGRAM Orally DAILYBUPRENORPHINE HCL/NALOXONE HCL (Suboxone 8 MG-2 MG Sl Film) 1 EACH FILM1 MILLIGRAM SublinguallySUMATRIPTAN SUCCINATE (Imitrex*) 50 MG [id number] MILLIGRAM Orally DAILY NEEDED as needed for HeadacheOxcarbazepine (Trileptal) 150 MG [id number] MILLIGRAM Orally TWICE DAILYDischarge Activity: As tolerated, No liftingDischarge diet: RegularFollow-upFollow up with the mental health doctor [facility]Time spent by provider to complete discharge > 30 minutesDATE SIGNED: 12/05/19 Electronically SignedTIME SIGNED: 1912 DIOGENES BUENO MD Name Value Range Interpretation Code Description Data [place] rce(s) Supporting Document(s) ID Date Data Source [id number] 12/05/2019 09:46:00 AM EDT [place], [place] [address]PATIENT NAME: BRUNA LEE#: [id number] PHYSICIAN: YI KLEIN #: [id number] ADM. DATE: 12/04/19PATIENT : 89 DISCH. DATE: [50}DISCHARGE SUMMARYMedical Discharge PlanNicotine Replacement TherapyPrescribed at discharge Rx not offered at DCReason not offered [facility] Care InstructionsDischarge Activity: As tolerated, No liftingDischarge diet: RegularProblem ListMedical ProblemsAcute respiratory failure (Acute)Drug abuse (Chronic)Drug overdose (Acute)SchizophreniaSeizure disorder (Chronic, 12/20/18)Follow Up CareFollow Up:Follow up with the mental health doctor [facility]Priority ItemsUrgent/Important items that need to be addressed at primary care follow-upappointmentPLEASE AVOID GABAPENTIN/XANAX/BATH SALTS IN THE FUTUREDischarge InformationDISCHARGE INFORMATION* Thank you for choosing [facility] and allowing us toserve you* Our Goal [...] Hour Crisis HOTLINE available: Call [employer] at [phone] SMOKING CESSATION* Smoking is dangerous to your health. It delays the healing process, andworks against your medications. Not smoking will improve your health* Our hospital participates with the Opt-to-Quit program. You will be contactedafter discharge by the [facility] Smoker's Quitline for support with tobaccocessation. You have the option once contacted to refuse this service.* You can also go online to [email or web address]. Free nicotine replacementsare available Attent ion* You [...] rce(s) Supporting Document(s) ID Date Data Source [id number] 12/06/2019 02:37:00 AM EDT [address] [id number] NAME: BRUNA LEE Joe Orellana#: [id number] PHYSICIAN: BEHZAD HOGAN MD ADM. DATE: 12/04/19CONSULTING PHYSICIAN: PRERNA RIOS MD .#: ICUACCOUNT #: [id number] REPORTIDENTIFICATION: A 34-year-old female with mood disorder. This is a shortconsultation for a 34-year-old female who was unresponsive. The patient is inICU and at this point it is not clear the reason for an overdose.According to the records, the patient has a history of seizures, GERD, carpaltunnel, adjustment disorder, anxiety, depression, PTSD, and ADHD. Accordingto the records, the patient went to [facility] for an evaluation. Shehad an overdose. Was unconscious and at that point, according to the records,she stated that she injected bath salts in the morning, that is when shebecame unconscious and it is not clear who called the EMS that brought [facility]. The patient has poor response to [...] the lastthing she remembers is being at [place] so she is oriented to person, not [...] Dictated: 12/05/2019 09:24:19Date Transcribed: 12/06/2019 01:37:33JV/GBJob #: [id number]: 12/05/19 0924 Electronically SignedTRANS:12/06/19 0237 PRERNA RIOS MDTRANS BY:ADE SIGNED:12/09/19REPORT COPY TO: Name Value Range Interpretation Code Description Data [place] rce(s) Supporting Document(s) ID Date Data Source [id number] 12/05/2019 08:01:00 AM EDT [facility] Patient: BRUNA LEE Observation Repor t - [facility] Levels Hospital CenterVisitID: [id number] [place] [address] [phone], FRegistrabeebe healthcare Date/Time: 12/04/2019 15:46 Weight:68.4 kg (E). Height/Length:60 [...] 12/04/2019 20:43) Addenda for BRUNA LEE VisitID: [id number] Date: 12/04/2019 12/05/2019 7:59Spoke to [facility] nurse Deborah who wanted to come to [place] to see patient. Advised Deborah that the [facility]. (Electronically signed by Allyssa Paredes R.N. - 12/05/2019 7:59) Name Value Range Interpretation Code Description Data [facility](s) Supporting Document(s) ID Date Data Source [id number] 12/05/2019 07:34:00 AM [facility] Name Value Range Interpretation Code Description Data [facility](s) Supporting Document(s) GLU 76 mg/dL 70-110 [facility] Patients taking Sulfasalazine may have f alsely depressedGlucose levels. Patients taking Sulfapyridine may havefalsely elevated Glucose levels. Patients should be drawnfor Glucose before the initial administration of eitherdrug. BUN 7 mg/dL 7-23 [facility] CRE 0.500 mg/dL 0.500-1.300 [facility] GFR > 60 mL/min [facility] CHLORIDE 117 mmol/L 99-110 [facility] NA 146 mmol/L 136-147 [facility] POTASSIUM 3.5 mmol/L 3.5-5.1 [facility] TCO2 22 mmol/L 20-33 [facility] ANION GAP 10.5 10.0-20.0 [facility] CA 7.8 mg/dL 8.3-10.7 [facility] ALKALINE PHOS 59 U/L 45-117 [facility] TP 5.7 g/dL 6.0-7.8 [facility] ALB 2.6 g/dL 3.5-5.0 [facility] ESRD Dialysis patient Albumin reference range: 2.9-4.4 g/dL GL 3.1 g/dL 2.3-3.5 [facility] A/G 0.8 1.0-2.5 [facility] T. BILIRUBIN 0.3 mg/dL 0.1-1.1 [facility] The Dimension [place] Total Bilirubin is n ot recommended forpatients undergoing treatment with eltrombopag (Promacta)due to the potential for falsely elevated results. ALTI 15 U/L 6-54 [facility] Patients taking Sulfasalazine and/or Sul fapyridine may havefalsely depressed ALT levels. Patients should be drawn forALT before the initial administration of either drug. AST 26 U/L 6-38 [facility] Patients taking Sulfasalazine and/or Sul fapyridine may havefalsely depressed AST levels. Patients should be drawn forAST before the initial administration of either drug. ID Date Data Source [id number] 12/05/2019 07:08:00 AM EDT [facility] Name Value Range Interpretation Code Description Data [place] rce(s) Supporting Document(s) WBC 5.38 x10E3/uL 4.0-10.5 [facility] RBC 3.55 x10E6/uL 4.20-5.40 [facility] Hemoglobin 10.6 g/dL 12.0-16.0 [facility] Hematocrit 32.9 % 37.0-47.0 [facility] MCV 92.7 fL 81.0-99.0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 Quantity [...] 56 28 MoJose J hopson MD Medicaid [facility] 06/27/2019 06/27/2019 buprenorphine-naloxone 8-2 mg [...] table. 6 Clinical Report - Physicians/Mid Levels [facility] Emergency Department [address] [place] [address] Phone #: ext- [phone] 11/07/2019 00:19 Patient: [...] Oral. 7 Clinical Report - Physicians/Mid Levels [facility] Emergency Department [address] [place] [address] Phone #: ext- [phone] 11/07/2019 00:19 Patient: [...] rce(s) Supporting Document(s) ID Date Data Source [id number] 11/07/2019 03:20:00 AM EDT [facility] Name Value Range Interpretation Code Description Data [place] rce(s) Supporting Document(s) HCG SERUM QUAL NEGATIVE NORMAL: NEGATIVE [facility] HCG SERUM QL REENTER NEGATIVE NORMAL: NEGATIVE [facility] { KIT LOT # [id number] ){ KIT EXP DATE 12-08-20 ){ PROCEDURAL CONTROL VALID ) ID Date Data Source [id number] 11/07/2019 03:15:00 AM EDT [facility] Name Value Range Interpretation Code Description Data [place] rce(s) Supporting Document(s) Creatine kinase [Enzymatic activity/volume] in Serum or Plasma 3 13 U/L 30 - 170 H [facility] ID Date Data Source [id number] 11/07/2019 03:14:00 AM EDT [facility] Name Value Range Interpretation Code Description Data [place] rce(s) Supporting Document(s) COMPREHENSIVE METABOLIC PANEL [facility] COMPREHENSIVE METABOLIC PANEL Sodium [Moles/volume] in Serum or Plasma 140 mEq/L 134 - 153 [facility] Potassium [Moles/volume] in Serum or Plasma 3.8 mEq/L 3.6 - 5.0 [facility] Chloride [Moles/volume] in Serum or Plasma 100 mEq/L 98 - 107 [facility] Carbon dioxide, total [Moles/volume] in Serum or Plasma 30 MEQ/L 22 - 30 [facility] Glucose [Mass/volume] in Serum or Plasma 98 MG/DL 65 - 110 [facility] BUN 14 MG/DL 7 - 21 [facility] Creatinine [Mass/volume] in Serum or Plasma 0.7 MG/DL 0.7 - 1.5 [facility] BUN/CREAT 20 8 - 27 [facility] Protein [Mass/volume] in Serum or Plasma 5.9 G/DL 6.3 - 8.2 L [facility] Albumin [Mass/volume] in Serum or Plasma 3.6 G/DL 3.9 - 5.0 L [facility] Globulin [Mass/volume] in Serum by calculation 2.3 GM/DL 2.4 - 3.2 L [facility] A/G RATIO 1.6 0.8 - 2.0 [facility] Calcium [Mass/volume] in Serum or Plasma 9.2 MG/DL 8.4 - 10.2 [facility] Bilirubin.total [Mass/volume] in Serum or Plasma <0.7 MG/DL 0.2 - 1.3 [facility] Alkaline phosphatase [Enzymatic activity/volume] in Serum or Plasma 62 U/L 38 - 126 [facility] Aspartate aminotransferase [Enzymatic activity/volume] in Serum or Plasma 302 U/L 5 - 40 H [facility] Alanine aminotransferase [Enzymatic activity/volume] in Seru m or Plasma 125 U/L 7 - 56 H [facility] Anion gap 3 in Serum or Plasma 10.0 mmol/L 8.0 - 16.0 [facility] AGE 34 yrs [facility] Hospit al NON-AA GFR >60 mL/min [facility] Hosp ital AFR AMER GFR >60 mL/min [facility] Ho spital Male GFR In terprentation [...] >32 mL/min Normal ID Date Data Source [id number] 11/07/2019 02:27:00 AM EDT [facility] Name Value Range Interpretation Code Description Data [place] rce(s) Supporting Document(s) CBC W/AUTOMATED DIFF [facility] COMPLETE BLOOD COUNT Leukocytes [#/volume] in Blood by Automated count 8.3 10^3/uL 4.2 - 1 1.0 [facility] Erythrocytes [#/volume] in Blood by Automated count 3.87 10^6/uL 4. 20 - 5.40 L [facility] Hemoglobin [Mass/volume] in Blood 11.6 g/dL 12.0 - 16.0 L [facility] Hematocrit [Volume Fraction] of Blood by Automated count 36.0 % 3 7.0 - 47.0 L [facility] Erythrocyte mean corpuscular volume [Entitic volume] by Auto mated count 93.0 fL 81.0 - 101 [facility] Erythrocyte mean corpuscular hemoglobin [Entitic mass] by Automated count 30.0 pg 27.0 - 34.0 [facility] Erythrocyte mean corpuscular hemoglobin concentration [Mass/volume] by Automated count 32.2 g/dL 31.0 - 36.0 [facility] Erythrocyte distribution width [Ratio] by Automated count 13.3 % 11.5 - 14.5 [facility] Platelets [#/volume] in Blood by Automated count 271 10^3/uL 150 - 45 0 [facility] Platelet mean volume [Entitic volume] in Blood by Automated count 9.5 fL 7.4 - 10.4 [facility] Neutrophils/100 leukocytes in Blood by Automated count 82.6 % 37. 0 - 80.0 H [facility] Lymphocytes/100 leukocytes in Blood by Manual count 14.3 % 25.0 - 40.0 L [facility] Monocytes/100 leukocytes in Blood by Automated count 1.6 % 3.0 - 8.0 L [facility] Eosinophils/100 leukocytes in Blood by Automated count 0.8 % 0.0 - 7.0 [facility] Basophils/100 leukocytes in Blood by Automated count 0.2 % 0.0 - 2.5 [facility] %IG 0.5 % 0.0 - 0.0 [facility] %NRBC 0.0 % 0.0 - 0.0 [facility] al Neutrophils [#/volume] in Blood by Automated count 6.85 10^3/uL 2.00 - 6.90 [facility] Lymphocytes [#/volume] in Blood by Automated count 1.19 10^3/uL 0.60 - 3.40 [facility] Monocytes [#/volume] in Blood by Automated count 0.13 10^3/uL 0.00 - 0.90 [facility] Eosinophils [#/volume] in Blood by Automated count 0.07 10^3/uL 0.00 - 0.70 [facility] Basophils [#/volume] in Blood by Automated count 0.02 10^3/uL 0.00 - 0.20 [facility] #IG 0.04 10^3/uL 0.00 - 0.10 [facility] H [facility]spital #NRBC 0.00 10^3/uL 0.00 - 0.00 [facility] MANUAL DIFF NOT INDICATED [facility] RBC MORPH NOT INDICATED [facility] Ho spital ID Date Data Source [id number] 11/07/2019 03:14:00 AM EDT [facility] Name Value Range Interpretation Code Description Data [place] rce(s) Supporting Document(s) DRUG SCREEN URINE [facility] URINE DRUG SCREEN Amphetamine [Presence] in Urine by Screen method PRESUMP POS LISANDRA L: NEGATIVE A [facility] BARBITURATES NEGATIVE NORMAL: NEGATIVE [facility] BENZO NEGATIVE NORMAL: NEGATIVE [facility] COCAINE NEGATIVE NORMAL: NEGATIVE [facility] Tetrahydrocannabinol [Presence] in Urine NEGATIVE NORMAL: NEGATIVE [facility] OPIATES NEGATIVE NORMAL: NEGATIVE [facility] Phencyclidine [Presence] in Urine by Screen method NEGATIVE NOR MAL: NEGATIVE [facility] \\BLDo\\URINE DRUG SCR EEN INTERPRETATION\\BLDx\\ THE CUTOFFF LEVELS FOR DETECTION ARE FOLLOWS: AMPHETAMINES 1000 ng/ml BARBITUARATES 200 ng/ml BENZODIAZEPINES 100 ng/ml THC 50 ng/ml PHENCYCLIDINE 25 ng/ml OPIATES 300 ng/ml COCAINE 300 ng/ml ALL POSITIVES ARE CONSIDERED PRESUMPTIVE POSITIVE CONFIRMATION WILL BE PERFORMED AT PHYSICIAN REQUEST. ID Date Data Source [id number] 11/07/2019 02:27:00 AM EDT [facility] Name Value Range Interpretation Code Description Data [place] rce(s) Supporting Document(s) URINALYSIS [facility] james URINALYSIS SOURCE R [facility] al COLOR yellow NORMAL: Yellow [facility] CLARITY clear NORMAL: Clear [facility] sp[facility] Specific gravity of Urine by Test strip 1.020 1.001 - 1.030 [facility] pH 6 5 - 9 [facility] al Glucose [Mass/volume] in Urine by Test strip NORM NORMAL: Negat [facility] Bilirubin.total [Presence] in Urine by Test strip NEG NORMAL: Negative [facility] Ketones [Presence] in Urine by Test strip NEG NORMAL: Negative [facility] Protein [Mass/volume] in Urine by Test strip [facility] [Presence] in Urine by Test strip NEG NORMAL: Negative [facility] BLOOD NEG NORMAL: Negative [facility] Leukocyte esterase [Presence] in Urine by Test strip NEG LISANDRA L: Negative [facility] Urobilinogen [Mass/volume] in Urine by Test strip 1 less kenna n 1.0 mg/dL [facility] MICROSCOPIC Not Indicate [facility] ID Date Data Source [id number] 10/30/2019 10:27:00 AM EDT [facility] Name Value Range Interpretation Code Description Data [place] rce(s) Supporting Document(s) BG FASTING 132 mg/dL 70-[address] [facility] TSH 0.526 microintl units/mL 0.358-3.740 N [facility] ID Date Data Source [id number] 10/30/2019 10:27:00 AM EDT [facility] Name Value Range Interpretation Code Description Data [place] rce(s) Supporting Document(s) HCT 37.6 % 36.0-47.0 N [facility] HGB 11.8 g/dL 12.0-15.5 L [facility] MCH 31.4 G/DL pg 32.0-36.5 [facility] MCHC 29.9 PG % 27.0-33.0 N [facility] PLATELETS 209 10 10*3/mm3 150-450 N [facility] RBC 3.94 10 10*6/mm3 4.00-5.40 L [facility] RDW 12.6 % 11.5-14.5 [facility] WBC TOTAL 4.5 4.0-10.0 N [facility] ID Date Data Source [id number] 10/13/2019 03:25:00 PM EDT [facility] Name Value Range Interpretation Code Description Data [place] rce(s) Supporting Document(s) HCT 40.7 % 36.0-47.0 N [facility] HGB 13.3 g/dL 12.0-15.5 N [facility] MCH 32.7 G/DL pg 32.0-36.5 N [facility] MCHC 30.4 PG % 27.0-33.0 N [facility] PLATELETS 288 10 10*3/mm3 150-450 N [facility] RBC 4.37 10 10*6/mm3 4.00-5.40 N [facility] RDW 12.4 % 11.5-14.5 N [facility] WBC TOTAL 8.7 4.0-10.0 N [facility] ID Date Data Source [id number] 10/09/2019 02:09:00 AM EDT [facility] 1 OrderSheet [facility] Emergency Department [address] [place] [address] Phone #: ext- [phone] 10/09/2019 02:08 Patient: [...] rce(s) Supporting Document(s) ID Date Data Source [id number] 10/09/2019 02:09:00 AM EDT [facility] 1 Medication Reconciliation Report [facility] Emergency Department [address] [place] [address] Phone #: ext- [phone] 10/09/2019 02:08 Patient: [...] rce(s) Supporting Document(s) ID Date Data Source [id number] 10/09/2019 02:09:00 AM EDT [facility] 1 Medication Administration Record [facility] Emergency Department [address] [place] [address] Phone #: ext- [phone] 10/09/2019 02:08 Patient: BRUNA LEE Sex: F : 1985 Age: 34yWeight: 81.1 kgHeight/Length: 60 inBMI: 34.9ALLERGIES: Penicillins, Sulfa Antibiotics Date/Time Medication Administered Medication OrderedGiven IBUPROFEN [PO] Ibuprofen 800 mg PO X1 dose: 31813:39 10/09/2019 Dose: 800 mg Tablets PO mg (NOW x1)Meme Maldonado R.N. Name Value Range Interpretation Code Description Data [place] rce(s) Supporting Document(s) ID Date Data Source [id number] 10/09/2019 02:09:00 AM EDT [facility] 1 General Instructions [facility] Emergency Department [address] [place] [address] Phone #: ext- [phone] 10/09/2019 02:08 Patient: [...] INFORMATIONViral Pharyngitis (Sore Throat) 2 General Instructions [facility] Emergency Department [address] [place] [address] Phone #: ext- [phone] 10/09/2019 02:08 Patient: [...] glass of warm water. 3 General Instructions [facility] Emergency Department [address] [place] [address] Phone #: ext- [phone] 10/09/2019 02:08 Patient: [...] breathing or noisy breathing 4 General Instructions [facility] Emergency Department [address] [place] [address] Phone #: ext- [phone] 10/09/2019 02:08 Patient: BRUNA LEE Sex: F : 1985 Age: 34y Muffled voice New rash Other symptoms are getting worse [id number] [employer]. [address] [place] [address]. All rights reserved. This information is not intended as asubstitute for professional medical care. Always follow your healthcare professional's instructions. You have been given the following additional information: Pharyngitis, Viral(Electronically signed by Evonne Anne M.D. 10/09/2019 03:51) Name Value Range Interpretation Code Description Data [place] rce(s) Supporting Document(s) ID Date Data Source [id number] 10/09/2019 02:09:00 AM EDT [facility] 1 Clinical Report - Nurses [facility] Emergency Department [address] [place] [address] Phone #: ext- [phone] 10/09/2019 02:08 Patient: BRUNA LEE Sex: F : 1985 Age: 34yTRIAGEHistorian: EMS and patient.Triage time: 02:08 10/09/2019.Chief Complaint: SORE THROAT.This started just prior to arrival. The patient has had a hoarse voice.Treatment LAW OFFICE ASSISTANT:Took Tylenol. (arthritis kind).EMS Treatment LAW OFFICE ASSISTANT:See EMS report.SEPSIS SCREEN: SIRS Screen: heart rate greater than 90. Sepsis Screen negative. No suspected orconfirmed signs of infection present. --02:14 10/09/19 Meme Maldonado R.N.02:11 10/09/19. BP: 130/86. MAP: 100. HR: 105. RR: 18. O2 saturation: 100%. Temp: 98.5 F. Pain levelnow: 12/05. --02:14 10/09/19 Meme Maldonado R.N.Treatment LAW OFFICE ASSISTANT:(Seen at [facility] for this issue within the last few [...] Stomach pill, name unknown. --02:16 10/09/19 Meme Maldonado R.N. Suboxone Sublingual (Film 8-2 mg), daily. --02:21 10/09/19 Meme Maldonado R.N.AllergiesPenicillins.(hives) 2 Clinical Report - Nurses [facility] Emergency Department [address] [place] [address] Phone #: ext- [phone] 10/09/2019 02:08 Patient: BRUNA LEE Sex: F : 1985 Age: 34y Sulfa Antibiotics. --02:16 10/09/19 Meme Maldonado R.N. PROBLEMS: Anxiety Reaction. Depression. ADHD - Attention Deficit Hyperactivity Disorder. Schizophrenia. PTSD. Seizure Disorder. --02:18 10/09/19 Meme Maldonado R.N. ADDITIONAL SURGERIES: Hernia Repair (Umbilical ). --02:18 10/09/19 Meme Maldonado R.N. History PAST MEDICAL HX: Strep [...] Dental decay. 3 Clinical Report - Nurses [facility] Emergency Department [address] [place] [address] Phone #: ext- [phone] 10/09/2019 02:08 Patient: [...] Patient verbalized understanding. Written instructions provided in Scottish. The patient was discharged by the physician. [...] rce(s) Supporting Document(s) ID Date Data Source [id number] 10/09/2019 02:09:00 AM EDT [facility] 1 Clinical Report - Physicians/Mid Levels [facility] Emergency Department [address] [place] [address] Phone #: ext- [phone] 10/09/2019 02:08 Patient: [...] (per EMS, pt is well known to [facility] ER for multiple ER visits for multiple somatic and psychiatric complaints; tonight, she complains of sore throat, hoarse voice, bugs on her skin, etc.; pt has therapist in [place]). Similar symptoms previously. Patient has had similar [...] Medications: 2 Clinical Report - Physicians/Mid Levels [facility] Emergency Department [address] [place] [address] Phone #: ext- [phone] 10/09/2019 02:08 Patient: [...] PROCEDURAL CONTROL VALID ){ KIT LOT # [id number] ){ KIT EXP DATE [id number] )The 3 Clinical Report - Physicians/Mid Levels [facility] Emergency Department [address] [place] [address] Phone #: ext- [phone] 10/09/2019 02:08 Patient: [...] accurately reflects the information as submitted by [facility]. This report was requested by: Evonne Anne Reference #: [id number] Others' Prescriptions Patient Name: Bruna LeeBirth Date: 1985 Address: [address] [place] [address] [id number]: Female Rx Written Rx Dispensed Drug Quantity [...] 56 28 Moehs, Jose J Bundy MD [facility] 05/01/2019 05/01/2019 buprenorphine-naloxone 8-2 [...] mg-3 mg sl film 28 28 Moehs, oJse J Bundy MD Medicaid [facility] 12/10/2018 12/10/2018 suboxone 8 mg-2 mg sl film 56 28 MoehsJose J MD Medicaid [facility] 4 Clinical Report - Physicians/Mid Levels [facility] Emergency Department [address] [place] [address] Phone #: [phone]- [phone] 10/09/2019 02:08 Patient: BRUNA LEE Sex: F [...] unknown*. 5 Clinical Report - Physicians/Mid Levels [facility] Emergency Department [address] [place] [address] Phone #: ext- [phone] 10/09/2019 02:08 Patient: [...] rce(s) Supporting Document(s) ID Date Data Source [id number] 10/09/2019 03:02:00 AM EDT [facility] Name Value Range Interpretation Code Description Data [facility] Supporting Document(s) RAPID STREP NEGATIVE NORMAL: NEGATIVE [facility] RAPID STREP REENTER NEGATIVE NORMAL: NEGATIVE [facility] { PROCEDURAL CONTROL VALID ){ KIT LOT # [id number] ){ KIT EXP DATE 874729 )The Strep A 2 assay utilizes isothermal [...] basis for treatment. ID Date Data Source [id number] 09/22/2019 02:34:28 PM EDT [facility] Measurements & CalculationsHeight: 61 inches (5 ft. [...] (ER) or urgent care clinic? Yes - [facility] Have you seen another healthcare provider? Yes - [facility] Have you seen a dentist? NoIntake [...] this is different. [facility] mental health issues (schizophrenia) and feels that this is going well.HPI performed by: Francesco Ritchie MD, September 22, 2019 2:52 PMTransitions of Care InboundProblem ReviewProblem List was reviewed and/or updated during this visit.Medication Reconciliation & ReviewMedication List was reviewed and/or updated during this visit, including review of any ckfp-bfx-rowhokb medications, herbal therapies, and/or supplements.Allergy ReviewAllergy List [...] Plan Problems:Added: Hematemesis - cause unknown (ICD-578.0) (QRB32-G84.0) Assessment: Instructions: Currently asymptomatic but worrisome enough to warrant further workup.Avoid NSAIDs and refer to GI.Return to ER if this occurs again.Assessed:Peripheral neuropathy (ICD-356.9) (KPJ68-N55.9) Assessment: Instructions: I am not sure where [...] (Critical)Orders:Adult - Ofc Vst, EST, Level III [CPT-33059] Gastroenterology Consult [CPT-65288] Medications:GABAPENTIN 400 MG ORAL CAPSULE (GABAPENTIN) take one tablet by mouth three times daily as needed #90[Capsule] x 0 Route:ORAL Entered and Authorized by: Francesco Ritchie MD Method used: Electronically to [facility] (retail) [address] [place] [address] Note to Pharmacy: Route: ORAL; Indications: PERIPHERAL NEUROPATHY;BILATERAL CARPAL TUNNEL SYNDROME RxID: [id number] 1000 MG ORAL TABLET (LEVETIRACETAM) 1 pill po bid #60[Tablet] x 0 Route:ORAL Entered and Authorized by: Francesco Ritchie MD Method used: Electronically to [facility] (retail) [address] [place] [address] Note to Pharmacy: Route: ORAL; RxID: [id number] SUCCINATE 50 MG ORAL TABLET (SUMATRIPTAN SUCCINATE) take one tab po at the onset of headache. may repeat dose x one if no releif after two hours. #15[Tablet] x 0 Entered and Authorized by: Francesco Ritchie MD Method used: Electronically to [facility] (retail) [address] [place] [address] RxID: [id number] OMEPRAZOLE 20 MG ORAL TABLET DELAYED RELEASE (OMEPRAZOLE) One tablet by mouth every day #30[Tablet] x 2 Route:ORAL Entered and Authorized by: Francesco Ritchie MD Method used: Electronically to [facility] (retail) [address] [place] [address] Note to Pharmacy: Route: ORAL; RxID: [id number] DOXYCYCLINE MONOHYDRATE 100 MG ORAL TABLET (DOXYCYCLINE MONOHYDRATE) take one tablet by mouth twice daily x 5 days #10[Tablet] x 0 Route:ORAL Entered by: Demetria Elliott MA Authorized by: Mavis DIEGO Method used: Electronically to [facility] (retail) [address] [place] [address] RxID: [id number] signed by Francesco Ritchie MD on 09/22/2019 at 5:42 PM Name Value Range Interpretation Code Description Data [place] rce(s) Supporting Document(s) ID Date Data Source [id number] 09/10/2019 10:45:00 PM EDT [facility] Name Value Range Interpretation Code Description Data [place] rce(s) Supporting Document(s) BG FASTING 96 mg/dL 70-[address] [facility] ID Date Data Source [id number] 09/10/2019 10:45:00 PM EDT [facility] Name Value Range Interpretation Code Description Data [place] rce(s) Supporting Document(s) HCT 37.4 % 36.0-47.[address] [facility] HGB 12.1 g/dL 12.0-15.5 [facility] MCH 32.4 G/DL pg 32.0-36.5 [facility] MCHC 30.2 PG % 27.0-33.0 [facility] PLATELETS 244 10 10*3/mm3 150-450 N [facility] RBC 4.01 10 10*6/mm3 4.00-5.40 [facility] RDW 12.8 % 11.5-14.5 [facility] WBC TOTAL 4.9 4.0-10.0 [facility] ID Date Data Source [id number] 05/20/2019 11:42:55 AM EDT [facility] Measurements & CalculationsHeight: 61 inches (5 ft. [...] you seen another healthcare provider? Yes - [facility] Have you seen a dentist? NoRate [...] during this visit, including review of any vnyg-tza-xiaqwvm medications, herbal therapies, and/or supplements.Allergy ReviewAllergy List [...] Problems:Added: Phlebitis and thrombophlebitis of unspecified site (KIC34-H76.9): right AC and right tibia Assessment: Instructions: May continue warm compresses 3-4 times daily as needed. Please try to keep extremities elevated. We have sent a prescription to your pharmacy today. Please take medication as prescribed. Please report any major side effects.Phlebitis and thrombophlebitis of unspecified site (XEB40-H71.9): right AC and right tibia Assessment: right foot and right forearmAssessed:Tobacco use (ICD-305.1) (VDO35-K85.0) Assessment: Instructions: Please continue to try to quit smoking.Health Screening (ICD-V70.0) (FJR67-R36.9) Assessment: Instructions: Fasting labs ordered for you today. Please return prior to your next visit to have labs drawn. Please fast for 8-10 hours prior.Substance abuse (ICD-305.90) (NVZ32-S08.10) Assessment: Instructions: Please try to avoid the [...] (Critical)BACTRIM (Critical)* SULFA ANTIBIOTICS (Critical)Orders:COMP METABOLIC PANEL [CPT-36138] CBC W/DIFF [CPT- 09114] HgBA1c [CPT-30268] LIPID PANEL [CPT-30747] TSH [CPT-52997] T-4 free [CPT- 83237] Vitamin D 250H Unspecified [CPT-05417] URINALYSIS [CPT-51266] VITAMIN B- 12 [CPT-27044] Folate (Folic Acid Serum) [CPT-30129] IRON [CPT-54068] Adult - Ofc Vst, EST, Level III [CPT-61798] Follow-Up Return to clinic: 2-3 weeks for follow up Additional Follow-Up: If symptoms worsen, please return to clinic or the ERClinical Visit Summary CompletedMedications:DOXYCYCLINE MONOHYDRATE 100 MG ORAL TABLET (DOXYCYCLINE MONOHYDRATE) take one tablet by mouth twice daily x 5 days #10[Tablet] x 0 Route:ORAL Entered and Authorized by: Mavis DIEGO Method used: Electronically to [facility] (retail) [address] [place] [address] Note to Pharmacy: Route: ORAL; Indications: PHLEBITIS AND THROMBOPHLEBITIS OF UNSPECIFIED SITE RxID: [id number] signed by Mavis DIEGO on 05/24/2019 at 11:37 PM ____ Name Value Range Interpretation Code Description Data [place] rce(s) Supporting Document(s) Procedure Social History Code Duration Value Status Description Data Source(s ) Smoking 03/01/2020 12:00:00 AM EST Current Smoker completed Curre nt Smoker eCW1 ([facility]) Smoking 03/01/2020 12:00:00 AM EST Current Smoker completed Curre nt Smoker eCW1 ([facility]) Smoking 03/01/2020 12:00:00 AM EST Current Smoker completed Curre nt Smoker eCW1 ([facility]) Smoking 02/18/2020 12:00:00 AM EST Current Smoker completed Curre nt Smoker eCW1 ([facility]) Smoking 12/24/2019 12:00:00 AM EDT Current Smoker completed Curre nt Smoker eCW1 ([facility]) Smoking 12/24/2019 12:00:00 AM EDT Current Smoker completed Curre nt Smoker eCW1 ([facility]) Smoking 12/24/2019 12:00:00 AM EDT Current Smoker completed Curre nt Smoker eCW1 ([facility]) Smoking 12/24/2019 12:00:00 AM EDT Current Smoker completed Curre nt Smoker eCW1 ([facility]) Smoking 12/24/2019 12:00:00 AM EDT Current Smoker completed Curre nt Smoker eCW1 ([facility]) Smoking 12/24/2019 12:00:00 AM EDT Current Smoker completed Curre nt Smoker eCW1 ([facility]) Smoking 12/24/2019 12:00:00 AM EDT Current Smoker completed Curre nt Smoker eCW1 ([facility]) Smoking 10/31/2019 12:00:00 AM EDT Current Smoker completed Curre nt Smoker eCW1 ([facility]) Smoking 10/31/2019 12:00:00 AM EDT Current Smoker completed Curre nt Smoker eCW1 ([facility]) Smoking 10/31/2019 12:00:00 AM EDT Current Smoker completed Curre nt Smoker eCW1 ([facility]) Vital Signs ID Date Data Source UNK Name Value Range Interpretation Code Description Data Source(s) Oxygen saturation in Arterial blood by Pulse oximetry 99 % 99 % eCW1 ([facility]) Respiratory rate 18 /min 18 /min eCW1 ([facility]) Heart rate 93 /min 93 /min eCW1 ([facility]) Body mass index (BMI) [Ratio] 35.27 kg/m2 35.27 kg/m2 eCW1 ([facility]) Body weight 180.6 [lb_av] 180.6 [lb_av] eCW1 ([facility]) Body height 60 [in_i] 60 [in_i] eCW1 ([facility]) Oxygen saturation in Arterial blood by Pulse oximetry 97 % 97 % eCW1 ([facility]) Respiratory rate 18 /min 18 /min eCW1 ([facility]) Heart rate 89 /min 89 /min eCW1 ([facility]) Body mass index (BMI) [Ratio] 36.48 kg/m2 36.48 kg/m2 eCW1 ([facility]) Body weight 186.8 [lb_av] 186.8 [lb_av] eCW1 ([facility]) Body height 60 [in_i] 60 [in_i] eCW1 ([facility]) Body height 60 [in_i] 60 [in_i] eCW1 ([facility]) Oxygen saturation in Arterial blood by Pulse oximetry 98 % 98 % eCW1 ([facility]) Respiratory rate 18 /min 18 /min eCW1 ([facility]) Heart rate 86 /min 86 /min eCW1 ([facility]) Body temperature 98.0 [degF] 98.0 [degF] eCW1 ( [facility]) Body mass index (BMI) [Ratio] 32.10 kg/m2 32.10 kg/m2 eCW1 ([facility]) Body weight 164.4 [lb_av] 164.4 [lb_av] eCW1 ([facility]) Oxygen saturation in Arterial blood by Pulse oximetry 99 % 99 % eCW1 ([facility]) Respiratory rate 18 /min 18 /min eCW1 ([facility]) Heart rate 100 /min 100 /min eCW1 ([facility]) Body temperature 98.7 [degF] 98.7 [degF] eCW1 ( [facility]) Body mass index (BMI) [Ratio] 30.70 kg/m2 30.70 kg/m2 eCW1 ([facility]) Body weight 157.2 [lb_av] 157.2 [lb_av] eCW1 ([facility]) Body height 60 [in_i] 60 [in_i] eCW1 ([facility]) ID Date Data Source [id number] 12/26/2019 01:56:00 PM EDT [facility] Name Value Range Interpretation Code Description Data Source(s) WEIGHT 72.3 kilos 72.3 kilos [facility] HEIGHT 152.4 centimeters 152.4 centimeters [facility] WEIGHT 75 kilos 75 kilos [facility] HEIGHT 152.4 centimeters 152.4 centimeters [facility] ID Date Data Source [id number] 12/10/2019 06:07:00 AM EDT [facility] Name Value Range Interpretation Code Description Data Source(s) WEIGHT 68 kilos 68 kilos [facility] HEIGHT 152.4 centimeters 152.4 centimeters [facility] WEIGHT 68.4 kilos 68.4 kilos [facility] HEIGHT 152.4 centimeters 152.4 centimeters [facility] ID Date Data Source [id number] 12/08/2019 01:43:00 [facility] Name Value Range Interpretation Code Description Data Source(s) WEIGHT 75 kilos 75 kilos [facility] HEIGHT 152.4 centimeters 152.4 centimeters [facility] ID Date Data Source [id number] 12/08/2019 01:43:00 PM [facility] Name Value Range Interpretation Code Description Data Source(s) WEIGHT 74 kilos 74 kilos [facility] HEIGHT 160.02 centimeters 160.02 centimeter [facility] Patient Treatment Plan of Care Planned Activity Planned Date Details Description Data Source (s) Clonidine Hydrochloride 0.2 MG Oral Tablet 12/24/2019 12:00:00 AM E DT eCW1 ([facility]) Clonidine Hydrochloride 0.2 MG Oral Tablet 12/24/2019 12:00:00 AM E DT eCW1 ([facility]) Clonidine Hydrochloride 0.2 MG Oral Tablet 12/24/2019 12:00:00 AM E DT eCW1 ([facility]) Clonidine Hydrochloride 0.2 MG Oral Tablet 12/24/2019 12:00:00 AM E DT eCW1 ([facility]) lisdexamfetamine dimesylate 50 MG Oral Capsule [Vyvans e] 11/04/2019 12:00:00 AM EDT eCW1 ([facility]) Clonazepam 0.5 MG Oral Tablet 11/04/2019 12:00:00 AM EDT eCW1 ([facility]) Citalopram 20 MG Oral Tablet [Celexa] 11/04/2019 12:00:00 AM EDT eCW1 ([facility]) Risperidone 3 MG Oral Tablet [Risperdal] 07/07/2019 12:00:00 AM EDT eCW1 ([facility]) Risperidone 3 MG Oral Tablet [Risperdal] 07/07/2019 12:00:00 AM EDT eCW1 ([facility]) Risperidone 2 MG Oral Tablet [Risperdal] 07/07/2019 12:00:00 AM EDT eCW1 ([facility]) Risperidone 2 MG Oral Tablet [Risperdal] 07/07/2019 12:00:00 AM EDT eCW1 ([facility]) Risperidone 3 MG Oral Tablet [Risperdal] 07/07/2019 12:00:00 AM EDT eCW1 ([facility])
[2020-03-12 15:23] VITALS: BP 119/63
[2020-03-12 15:25] LABS: BASO # 0.1 10^3/uL (0.0-0.2); BASO % 0.7 % (0.0-1.0); EOS # 0.1 10^3/uL (0.0-0.5); HEMATOCRIT 39.6 % (36.0-47.0); HEMOGLOBIN 12.8 g/dl (12.0-15.5); LYMPH % 29.5 % (24.0-44.0); MEAN CORPUSCULAR HEMOGLOBIN 29.3 pg (27.0-33.0); MEAN CORPUSCULAR HGB CONC 32.3 g/dl (32.0-36.5); MEAN CORPUSCULAR VOLUME 90.6 fl (80.0-96.0); MONO # 0.5 10^3/uL (0.0-0.8); MONO % 7.4 % (0.0-5.0); NEUTROPHILS # 4.2 10^3/uL (1.5-8.5); NEUTROPHILS % 61.1 % (36.0-66.0); PLATELET COUNT, AUTOMATED 300 10^3/uL (150-450); RED BLOOD COUNT 4.37 10^6/uL (4.00-5.40); WHITE BLOOD COUNT 6.9 10^3/uL (4.0-10.0)
[2020-03-12 15:53] LABS: CK-MB VALUE MASS 2.5 NG/ML (<3.6); CPK CREATINE PHOSPHOKINASE 216 U/L (26-192); MB/CK RELATIVE INDEX 1.16 (< OR =4); TROPONIN I < 0.02 NG/ML (< 0.10)
[2020-03-12 15:54] LABS: ACETAMINOPHEN LEVEL < 2.0 UG/ML (10.0-30.0); ALT/SGPT 34 U/L (12-78); BILIRUBIN,DIRECT < 0.1 MG/DL (0.0-0.2); BILIRUBIN,TOTAL 0.3 MG/DL (0.2-1.0); BLOOD UREA NITROGEN 10 MG/DL (7-18); CALCIUM LEVEL 9.5 MG/DL (8.5-10.1); CARBON DIOXIDE LEVEL 27 MEQ/L (21-32); CHLORIDE LEVEL 107 MEQ/L (98-107); CREATININE FOR GFR 0.86 MG/DL (0.55-1.30); ETHYL ALCOHOL (ETHANOL) < 0.003 % (0.000-0.010); FREE T4 1.03 NG/DL (0.76-1.46); GLOMERULAR FILTRATION RATE > 60.0 (>60); GLUCOSE, FASTING 122 MG/DL (70-100); LIPASE 66 U/L (73-393); POTASSIUM SERUM 4.5 MEQ/L (3.5-5.1); SALICYLATE LEVEL 4.1 MG/DL (5.0-30.0); SODIUM LEVEL 140 MEQ/L (136-145); THYROID STIMULATING HORMONE 0.724 uIU/ML (0.358-3.740); TOTAL PROTEIN 7.4 GM/DL (6.4-8.2)
--- NOTE | 2020-03-12 18:13 | ECGEPIP ---
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
[2020-03-21] MEDS ORDERED: VANC125C3 PO (12:11)
== END 2020-03-12 17:00 | disposition home or self-care (01) ==
LOC: M ED 11:24
DX: R42 Dizziness and giddiness (principal); J02.9 Acute pharyngitis, unspecified; S80.10XA Contusion of unspecified lower leg, initial encounter; X58.XXXA Exposure to other specified factors, initial encounter; Y92.89 Other specified places as the place of occurrence of the external cause; F16.20 Hallucinogen dependence, uncomplicated; Z79.899 Other long term (current) drug therapy; Z88.0 Allergy status to penicillin; Z88.2 Allergy status to sulfonamides; Z88.8 Allergy status to other drugs, medicaments and biological substances
CPT/HCPCS: 36415; 80048; 80076; 82550; 82553; 83690; 84439; 84443; 85025; 93005; 99284; G0480

== ENCOUNTER 2020-03-20 16:35 | Emergency (ER) | payer OTHER ==
[~2020-03-20] VITALS: Ht 152.4 cm; Wt 84.6 kg
[2020-03-20] MEDS ORDERED: IBUP200T45 PO (17:02)
[2020-03-20] MEDS ORDERED: CLON0.2T PO (17:02)
[2020-03-20] MEDS ORDERED: ACETAMINOPHEN 325 MG TAB PO ONE (17:30)
[2020-03-20] MEDS ORDERED: KETOROLAC 30 MG/ML 1ML VIAL IM ONE (17:45)
[2020-03-20] MEDS ORDERED: KETO10TAB PO (18:31)
[2020-03-20 18:39] VITALS: BP 135/78
[2020-03-21] MEDS ORDERED: VANC125C3 PO (12:11)
== END 2020-03-20 18:49 | disposition home or self-care (01) ==
LOC: M ED 16:35
DX: G44.209 Tension-type headache, unspecified, not intractable (principal); F16.20 Hallucinogen dependence, uncomplicated; F17.200 Nicotine dependence, unspecified, uncomplicated; Z88.0 Allergy status to penicillin; Z88.2 Allergy status to sulfonamides; Z88.8 Allergy status to other drugs, medicaments and biological substances; Z79.899 Other long term (current) drug therapy
CPT/HCPCS: 87505; 96372; 99283; J1885

== ENCOUNTER 2020-03-21 13:32 | Emergency (ER) | payer OTHER ==
[~2020-03-21] VITALS: Ht 152.4 cm; Wt 83.7 kg
[~2020-03-21 13:32] MED LIST changes: +CLON0.2T PO; +IBUP200T45 PO; +KETO10TAB PO; +VANC125C3 PO
[2020-03-21] MEDS ORDERED: VANCOMYCIN ORAL SOL 250MG/5ML ORAL SYRINGE PO STA (14:08)
[2020-03-21] MEDS ORDERED: ACETAMINOPHEN 500 MG TAB PO ONE (14:15)
[2020-03-21 14:49] VITALS: BP 143/90
== END 2020-03-21 14:58 | disposition home or self-care (01) ==
LOC: M ED 13:32
DX: K52.9 Noninfective gastroenteritis and colitis, unspecified (principal); B96.7 Clostridium perfringens [C. perfringens] as the cause of diseases classified elsewhere; R51.9 Headache, unspecified; B19.20 Unspecified viral hepatitis C without hepatic coma; E03.9 Hypothyroidism, unspecified; F33.9 Major depressive disorder, recurrent, unspecified; R56.9 Unspecified convulsions; F25.9 Schizoaffective disorder, unspecified; F19.10 Other psychoactive substance abuse, uncomplicated; Z79.899 Other long term (current) drug therapy; Z88.0 Allergy status to penicillin; Z88.2 Allergy status to sulfonamides; Z88.8 Allergy status to other drugs, medicaments and biological substances; F17.210 Nicotine dependence, cigarettes, uncomplicated

== ENCOUNTER 2020-03-28 21:04 | Emergency (ER) | payer OTHER ==
[~2020-03-28] VITALS: Ht 152.4 cm; Wt 79.5 kg
[~2020-03-28 21:04] MED LIST changes: -QUET50TA3 PO; +QUET5TAB PO
--- OUTSIDE RECORDS SUMMARY | 2020-03-28 21:12 | CCD ---
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 Operator Name Role Phone Kori FLORES [...] Jeremie HOGAN MD Unavailable Unavailable JESICA, @ [facility] Unavailable Unavailable BEHZAD HOGAN MD Unavailable Unavailable Ching, Reginah W Kassidy DIGITAL STRATEGY SPECIALIST-C Unavailable Unavailabl e Ching, Reginah W Kassidy DIGITAL STRATEGY SPECIALIST-C Unavailable Unavailabl e Ching, Reginah W Kassidy DIGITAL STRATEGY SPECIALIST-C Unavailable Unavailabl e Ching, Reginah W Kassidy DIGITAL STRATEGY SPECIALIST-C Unavailable Unavailabl e Ching, Reginah W Kassidy DIGITAL STRATEGY SPECIALIST-C Unavailable Unavailabl e Ching, Reginah W Kassidy DIGITAL STRATEGY SPECIALIST-C Unavailable Unavailabl e Ching, Reginalisa W Kassidy DIGITAL STRATEGY SPECIALIST-C Unavailable Unavailabl e Ching, Reginah W Kassidy DIGITAL STRATEGY SPECIALIST-C Unavailable Unavailabl e Ching, Reginah W Kassidy DIGITAL STRATEGY SPECIALIST-C Unavailable Unavailabl e Ching, Reginah W Kassidy DIGITAL STRATEGY SPECIALIST-C Unavailable Unavailabl e Ching, Reginah W Kassidy DIGITAL STRATEGY SPECIALIST-C Unavailable Unavailabl e Ching, Reginah W Kassidy DIGITAL STRATEGY SPECIALIST-C Unavailable Unavailabl e Ching, Reginah W Kassidy DIGITAL STRATEGY SPECIALIST-C Unavailable Unavailabl e Ching, Reginah W Kassidy DIGITAL STRATEGY SPECIALIST-C Unavailable Unavailabl e Ching, Reginah W Kassidy DIGITAL STRATEGY SPECIALIST-C Unavailable Unavailabl e Ching, Reginah W Kassidy DIGITAL STRATEGY SPECIALIST-C Unavailable Unavailabl e Ching, Elijah Yi DIGITAL STRATEGY SPECIALIST-C Unavailable Unavailabl e Ching, Elijah Yi DIGITAL STRATEGY SPECIALIST-C Unavailable Unavailabl e Ching, Elijah Yi DIGITAL STRATEGY SPECIALIST-C Unavailable Unavailabl e Ching, Elijah Yi DIGITAL STRATEGY SPECIALIST-C Unavailable Unavailabl e Ching, Elijah Yi DIGITAL STRATEGY SPECIALIST-C Unavailable Unavailabl e Ching, Elijah Yi DIGITAL STRATEGY SPECIALIST-C Unavailable Unavailabl e Ching, Elijah Yi DIGITAL STRATEGY SPECIALIST-C Unavailable Unavailabl e Ching, Elijah Yi DIGITAL STRATEGY SPECIALIST-C Unavailable Unavailabl e Ching, Elijah Yi DIGITAL STRATEGY SPECIALIST-C Unavailable Unavailabl e Ching, Elijah Yi DIGITAL STRATEGY SPECIALIST-C Unavailable Unavailabl e Ching, Elijah Yi DIGITAL STRATEGY SPECIALIST-C Unavailable Unavailabl e Ching, Elijah Yi DIGITAL STRATEGY SPECIALIST-C Unavailable Unavailabl e Ching, Elijah Yi DIGITAL STRATEGY SPECIALIST-C Unavailable Unavailabl e Ching, Elijah Yi DIGITAL STRATEGY SPECIALIST-C Unavailable Unavailabl e Ching, Elijah Yi DIGITAL STRATEGY SPECIALIST-C Unavailable Unavailabl e Ching, Elijah Ballyce DIGITAL STRATEGY SPECIALIST-C Unavailable Unavailabl e Lino Marie MD Unavailable [...] Unavailable Ford, M Shira PA-C Unavailable Unavailable Jeremie BUENO MD Unavailable Unavailable [...] Unavailable HUMBERTO, QUE NATHAN PA-C Unavailable Unavailable MARI, CHAO MD Unavailable Unavailable MARI, CHAO MD Unavailable Unavailable MARI, CHAO MD Unavailable Unavailable MARI, CHAO MD Unavailable Unavailable MARI, CHAO MD Unavailable Unavailable ONDINA RAMIREZ MD Unavailable Unavailable ONDINA RAMIREZ MD Unavailable Unavailable ONDINA RAMIREZ MD Unavailable Unavailable ONDINA RAMIREZ MD Unavailable Unavailable ONDINA RAMIREZ MD Unavailable Unavailable ONDINA RAMIREZ MD Unavailable Unavailable ONDINA RAMIREZ MD Unavailable Unavailable ONDINA RAMIREZ MD Unavailable Unavailable BROWN, L JANE Unavailable Unavailable DESJARLAIS, KAROLYN DIALYSIS CHIEF EQUIPMENT TECHNICIAN Unavailable Unavailable DESJARLAIS, KAROLYN DIALYSIS CHIEF EQUIPMENT TECHNICIAN Unavailable Unavailable DESJARLAIS, KAROLYN DIALYSIS CHIEF EQUIPMENT TECHNICIAN Unavailable Unavailable DESJARLAIS, KAROLYN DIALYSIS CHIEF EQUIPMENT TECHNICIAN Unavailable Unavailable DESJARLAIS, KAROLYN DIALYSIS CHIEF EQUIPMENT TECHNICIAN Unavailable Unavailable DESJARLAIS, KAROLYN DIALYSIS CHIEF EQUIPMENT TECHNICIAN Unavailable Unavailable DESJARLAIS, KAROLYN DIALYSIS CHIEF EQUIPMENT TECHNICIAN Unavailable Unavailable DESJARLAIS, KAROLYN DIALYSIS CHIEF EQUIPMENT TECHNICIAN Unavailable Unavailable DESJARLAIS, KAROLYN DIALYSIS CHIEF EQUIPMENT TECHNICIAN Unavailable Unavailable MAHESH RECINOS Unavailable Unavailable Lester, Mavis DIGITAL STRATEGY SPECIALIST DIGITAL STRATEGY SPECIALIST Unavailable Unavailable BLUM KATRIN Unavailable Unavailable Lester, A Mavis DIGITAL STRATEGY SPECIALIST Unavailable Unavailable Lester, A Mavis DIGITAL STRATEGY SPECIALIST Unavailable Unavailable Lester, A Mavis DIGITAL STRATEGY SPECIALIST Unavailable Unavailable Lester, A Mavis DIGITAL STRATEGY SPECIALIST Unavailable Unavailable Lester, A Mavis DIGITAL STRATEGY SPECIALIST Unavailable Unavailable Lester, A Mavis DIGITAL STRATEGY SPECIALIST Unavailable Unavailable Lester, A Mavis DIGITAL STRATEGY SPECIALIST Unavailable Unavailable Lester, A Mavis DIGITAL STRATEGY SPECIALIST Unavailable Unavailable Lester, A Mavis DIGITAL STRATEGY SPECIALIST Unavailable Unavailable Lester, A Mavis DIGITAL STRATEGY SPECIALIST Unavailable Unavailable Lester, A Mavis DIGITAL STRATEGY SPECIALIST Unavailable Unavailable Lester, A Mavis DIGITAL STRATEGY SPECIALIST Unavailable Unavailable Lester, A Mavis DIGITAL STRATEGY SPECIALIST Unavailable Unavailable Lester, A Mavis DIGITAL STRATEGY SPECIALIST Unavailable Unavailable Lester, A Mavis DIGITAL STRATEGY SPECIALIST Unavailable Unavailable Lester, A Mavis DIGITAL STRATEGY SPECIALIST Unavailable Unavailable Lester, A Mavis DIGITAL STRATEGY SPECIALIST Unavailable Unavailable Lester, A Mavis DIGITAL STRATEGY SPECIALIST Unavailable Unavailable Lester, A Mavis DIGITAL STRATEGY SPECIALIST Unavailable Unavailable Lester, A Mavis DIGITAL STRATEGY SPECIALIST Unavailable Unavailable Lester, A Mavis DIGITAL STRATEGY SPECIALIST Unavailable Unavailable Lester, A Mavis DIGITAL STRATEGY SPECIALIST Unavailable Unavailable Lester, A Mavis DIGITAL STRATEGY SPECIALIST Unavailable Unavailable Lester, A Mavis DIGITAL STRATEGY SPECIALIST Unavailable Unavailable Lester, A Mavis DIGITAL STRATEGY SPECIALIST Unavailable Unavailable Lester, A Mavis DIGITAL STRATEGY SPECIALIST Unavailable Unavailable Lester, A Mavis DIGITAL STRATEGY SPECIALIST Unavailable Unavailable Lester, A Mavis DIGITAL STRATEGY SPECIALIST Unavailable Unavailable Re-disclosure Warning The records that [...] is protected by Article 27-F of the [facility] Public Health law. If you continue you may have access to information: Regarding HIV / AIDS; Provided by facilities licensed or operated by the [facility] Office of Mental Health; or Provided by the [facility] Office for People With Developmental Disabilities. If such information is present, then the following [facility] mandated warning applies: This information has [...] law may result in a fine or intermediate sentence or both. A general authorization for the release of medical or other information is NOT sufficient authorization for further disc losure. Allergies and Adverse Reactions Type Description Substance Reaction Status Data Source(s ) Drug allergy Drug allergy AMOXICLIIN SWELLING, HIVES SV R [facility] Drug allergy olanzapine [facility]apine [facility] Drug allergy trimethoprim trimethoprim "BLISTERS IN MOUTH" [facility] Drug allergy sulfamethoxazole sulfamethoxazole "BLISTERS IN MOUTH" [facility] Drug allergy haloperidol haloperidol [facility] Drug allergy Sulfa (Sulfonamide Antibiotics) Sulfa (Sulfonami de Antibiotics) "BLISTERS IN MOUTH" [facility] Drug allergy Penicillins Penicillins SWELLING, HIVES SV R er [facility] Encounters Encounter Providers Location Date Indications Data Source(s ) Preadmit Attender: FAHAD MOONEY 04/15/2020 09:45:0 0 AM [facility] Outpatient Attender: JANE EDWARD 03/23/2020 02:00:00 PM [facility] Outpatient Attender: JANE EDWARD 03/17/2020 10:30:00 AM [facility] Outpatient Attender: JANE EDWARD 03/11/2020 04:00:00 PM [facility] Preadmit Attender: FAHAD MOONEY 03/11/2020 06:30:0 0 AM [facility] Outpatient Attender: KAROLYN VAN NP 03/09/2020 03: 40:00 PM [facility] Outpatient [facility] 03/03/2020 12:00:00 AM [facility] eCW ([facility]) Outpatient Attender: Shira Becerraferrer: Shira Youngblood PA-C EMERGENCY ROOM-LAB 03/01/2020 04:49:00 PM [facility] - 03/01/2020 04:49:00 PM [facility] Outpatient Attender: hSira Youngblood PA-C 03/01/2020 03:45 :00 PM [facility] Outpatient [facility] 03/01/2020 12:00:00 AM EST eCW1 ([facility]) Outpatient [facility] 03/01/2020 12:00:00 AM [place] [id number] ([facility]) Outpatient Attender: KAROLYN VAN NP 02/18/2020 02: 40:00 PM [facility] Outpatient Attender: Kassidy NAIRC 02/18/2020 10:00:0 0 AM [address] [facility] Outpatient [facility] 02/18/2020 12:00:00 AM EST eCW1 ([facility]) Outpatient [facility] 02/10/2020 12:00:00 AM EST eCW1 ([facility]) Outpatient [facility] 02/03/2020 12:00:00 AM EST eCW1 ([facility]) Outpatient [facility] 01/14/2020 12:00:00 AM EST eCW1 ([facility]) Outpatient [facility] 01/06/2020 12:00:00 AM EST eCW1 ([facility]) Outpatient Attender: JOHNATHON PATEL 01/02/2020 10:06:[address] [facility] Outpatient [facility] 01/02/2020 12:00:00 AM EST eCW1 ([facility]) Outpatient Attender: JANE EDWARD 01/01/2020 02:30:00 PM E [facility] Outpatient Attender: KAROLYN VAN NP 12/24/2019 11: 00:[address] [facility] Outpatient Attender: Shira Youngblood PA-C 12/24/2019 08:24 :[address] [facility] Outpatient [facility] 12/24/2019 12:00:00 AM EDT eCW1 ([facility]) Outpatient Attender: JANE EDWARD 12/23/2019 01:54:00 PM E [facility] Outpatient [facility] 12/23/2019 12:00:00 AM EDT eCW1 ([facility]) Outpatient Attender: Mavis PATEL 12/12/2019 11:3 5:[address] [facility] Outpatient Attender: JANE EDWARD 12/11/2019 03:00:00 PM E [facility] Outpatient [facility] 12/09/2019 12:00:00 AM EDT eCW1 ([facility]) Outpatient Attender: Mavis PATEL 12/05/2019 01:2 6:[address] [facility] Inpatient Attender: PRERNA RIOS MDAdmitter: PRERNA Hopson MD ER-3RD 12/05/2019 10:08:00 AM EDT - 12/10/2019 01:07:00 PM EDT [facility] Patient discharged. Outpatient Attender: NATHAN PAUL PA-C 12/05/2019 09:03:[address] [facility] Admission cancelled. Disregard status an d admitted date. Inpatient Attender: BEHZAD HOGAN MD Attender: BEHZAD HOGAN MDAttender: DIOGENES BUENO MDAttender: DIOGENES BUENO MDAdmitter: BEHZAD HOGAN MD ER-ICU 12/04/2019 11:06:00 PM EDT - 12/05/2019 10:03:00 AM EDT [facility] Patient discharged. Emergency Attender: GINGER Diazerrer: Melissa Youngblood PA-C EMERGENCY ROOM-ER 12/04/2019 04:21:00 PM EDT - 12/04/2019 08:40:[address] [facility] Patient discharged. Outpatient Attender: KAROLYN VAN NP 12/04/2019 03: 11:[address] [facility] Outpatient Attender: Mavis PATEL 11/29/2019 07:0 4:[address] [facility] Outpatient Attender: JOHNATHON PATEL 11/29/2019 07:04:[address] [facility] Outpatient Attender: Mavis PATEL 11/24/2019 12:2 9:[address] [facility] Emergency Attender: EVONNE HAGENConsultant: STAFF NON 11/07/2019 12:19:00 AM EDT - 11/07/2019 04:20:00 AM EDT [facility] Patient discharged. Outpatient [facility] 11/07/2019 12:00:00 AM EDT eCW1 ([facility]) Outpatient Attender: Mavis PATEL 11/04/2019 02:2 6:[address] [facility] Outpatient Attender: KAROLYN VAN NP 11/04/2019 11: 40:[address] [facility] Outpatient Attender: Mavis PATEL 11/02/2019 01:2 6:[address] [facility] Outpatient Attender: Mavis PATEL 10/31/2019 06:0 2:[address] [facility] Outpatient Attender: JOHNATHON DIEGO FP 10/31/2019 06:01:[address] [facility] Outpatient Attender: Mavis DIEGO FP 10/31/2019 06:0 1:[address] [facility] Outpatient Attender: JOHNATHON DIEGO FP 10/31/2019 06:01:[address] [facility] Outpatient Attender: Shira Youngblood PA-C 10/31/2019 09:06 :[address] [facility] Outpatient [facility] 10/31/2019 12:00:00 AM EDT eCW1 ([facility]) Outpatient Attender: JANE EDWARD 10/27/2019 11:00:00 AM E [facility] Outpatient Attender: KAROLYN VAN NP 10/21/2019 03: 20:[address] [facility] Emergency Attender: EVONNE HAGENConsultant: STAFF NON 10/09/2019 02:09:00 AM EDT - 10/09/2019 03:44:00 AM EDT [facility] Patient discharged. Outpatient Attender: KATRIN BLUM 10/06/2019 09:37:00 AM ED [facility] Outpatient Attender: Mavis DIEGO 09/25/2019 04:0 9:[address] [facility] Outpatient Attender: Mavis DIEGO 09/25/2019 04:0 7:[address] [facility] Outpatient Attender: JOHNATHON DIEGO FP 09/23/2019 10:31:[address] [facility] Outpatient Attender: JOHNATHON DIEGO FP 09/23/2019 10:30:[address] [facility] Outpatient Attender: JOHNATHON DIEGO FP 09/23/2019 12:02:[address] [facility] Outpatient Attender: JOHNATHON DIEGO FP 09/22/2019 05:44:[address] [facility] Outpatient Attender: Mavis DIEGO FP 09/22/2019 05:4 2:[address] [facility] Outpatient Attender: JOHNATHON PATEL 09/22/2019 02:38:[address] [facility] Outpatient Attender: Mavis DIEGO FP 09/22/2019 12:0 5:01 PM EDT [facility] Outpatient Attender: JOHNATHON DIEGO FP 09/22/2019 07:56:01 A M EDT [facility] Outpatient Attender: Mavis DIEGO FP 09/16/2019 05:0 8:[address] [facility] Outpatient Attender: Mavis TRUJILLOP FP 09/14/2019 05:1 9:00 PM EDT [facility] Outpatient Attender: JOHNATHON DIEGO FP 09/14/2019 05:19:[address] [facility] Outpatient Attender: Mavis TRUJILLOP FP 09/12/2019 11:5 3:[address] [facility] Outpatient Attender: Mavis DIEGO FP 09/10/2019 11:0 6:01 PM EDT [facility] Outpatient Attender: JOHNATHON DIEGO FP 09/10/2019 11:06:[address] [facility] Outpatient Referrer: Femi Marie MD 08/15/2019 05:44:00 A M EDT [facility] Outpatient Attender: Mavis DIEGO FP 08/06/2019 09:5 2:[address] [facility] Outpatient Attender: JOHNATHON DIEGO FP 08/05/2019 07:41:[address] [facility] Outpatient Attender: Mavis DIEGO FP 08/05/2019 09:2 3:[address] [facility] Outpatient Attender: JOHNATHON DIEGO FP 08/05/2019 09:23:[address] [facility] Outpatient Attender: KATRIN BLUM 08/04/2019 09:42:00 AM ED [facility] Outpatient Attender: Mavis DIEGO FP 08/01/2019 10:3 1:[address] [facility] Outpatient Attender: Mavis DIEGO FP 08/01/2019 10:2 7:[address] [facility] Outpatient Attender: JOHNATHON DIEGO FP 07/30/2019 11:31:[address] [facility] Outpatient Attender: KATRIN BLUM 07/07/2019 03:30:00 PM ED [facility] Outpatient Attender: Mavis DIEGO FP 07/04/2019 10:3 3:[address] [facility] Outpatient Attender: Mavis DIEGO FP 07/03/2019 01:5 2:[address] [facility] Outpatient Attender: Mavis DIEGO FP 07/02/2019 10:2 8:[address] [facility] Outpatient Attender: Mavis DIEGO FP 07/01/2019 09:5 7:[address] [facility] Outpatient Attender: JOHNATHON DIEGO FP 07/01/2019 08:57:[address] [facility] Outpatient Referrer: Femi Marie MD 07/01/2019 04:55:00 A M EDT [facility] Outpatient Attender: JOHNATHON DIEGO FP 06/30/2019 04:21:[address] [facility] Outpatient Attender: Mavis DIEGO FP 06/22/2019 06:0 1:[address] [facility] Outpatient Attender: Mavis DIEGO FP 06/17/2019 03:3 2:[address] [facility] Outpatient Attender: JOHNATHON DIEGO FP 05/27/2019 12:22:[address] [facility] Outpatient Attender: Mavis DIEGO FP 05/24/2019 11:3 7:[address] [facility] Outpatient Attender: JOHNATHON DIEGO FP 05/20/2019 12:36:[address] [facility] Outpatient Attender: JOHNATHON DIEGO FP 05/20/2019 11:56:00 A M EDT [facility] Outpatient Attender: JOHNATHON DIEGO FP 05/20/2019 11:42:[address] [facility] Outpatient Attender: JOHNATHON DIEGO FP 05/01/2019 03:31:00 P M EST [facility] Outpatient Attender: Mavis DIEGO FP 04/28/2019 10:4 4:01 AM [facility] Outpatient Attender: KATRIN BLUM 04/21/2019 10:29:00 AM [facility] Outpatient Attender: JOHNATHON DIEGO FP 04/15/2019 12:44:01 P M [facility] Outpatient Attender: MAHESH RECINOS 02/24/2019 01:46:00 PM [facility] Outpatient Attender: JANE EDWARD 02/21/2019 10:00:00 AM E [facility] Outpatient Attender: JOHNATHON PATEL 02/18/2019 09:01:[address] [facility] Outpatient Attender: MAHESH RECINOS 02/10/2019 02:18:00 PM [facility] Outpatient Attender: MAHESH RECINOS 01/20/2019 04:26:00 PM [facility] Inpatient Attender: CHAO GUERRA MDAtten harjinder: PRERNA RIOS MDAdmitter: PRERNA RIOS MD ER-3RD 12/23/2018 04:01:00 PM EDT - 12/26/2018 01:22:00 PM EDT [facility] Patient discharged. Inpatient Attender: ONDINA RAMIREZ MDAdmitter: ONDINA RAMRIEZ MD E R-ICU 12/19/2018 05:26:00 PM EDT - 12/23/2018 03:42:00 PM EDT [facility] Patient discharged. Emergency Attender: MATIAS MIKE EMERGENCY ROOM-ER 03:51:00 PM EDT - 12/19/2018 04:47:[address] [facility] Patient discharged. Medications Medication Brand Name Start Date Product Form Dose Route Admi nistrative Instructions Pharmacy Instructions Status Indications Reaction Description Data Source(s) 8-2 mg 03/03/2020 12:00:00 AM EST film [address] TWO FILMS UNDER THE TONGUE EVERY DAY MAXIMUM DAILY DOSE = 2 PLACE TWO FILMS UNDER THE TONGUE EVERY D AY MAXIMUM DAILY DOSE = 2 SOLD: 03/03/2020 [facility] 300 mg 01/27/2020 12:00:00 AM EST [...] AREA(S) THREE TIMES A DAY SOLD: 01/02/2020 [facility] 8-2 mg 01/01/2020 12:00:00 AM EST film [address] TWO FILMS UNDER THE TONGUE EVERY DAY MAXIMUM DAILY DOSE = [address] TWO FILMS UNDER THE TONGUE EVERY DAY MAXIMUM DAILY DOSE = 2 FILMS SOLD: 01/02/2020 [facility] Clonidine Hydrochloride 0.2 MG Oral Tablet Clonidine H Cl 0.2 MG Clonidine HCl 0.2 MG 12/24/2019 12:00:00 AM EDT 1.0 {tablet} activ e Clonidine HCl 0.2 MG eCW1 ([facility]) Clonidine Hydrochloride 0.2 MG Oral Tablet Clonidine H Cl 0.2 MG Clonidine HCl 0.2 MG 12/24/2019 12:00:00 AM EDT 1.0 {tablet} activ e Clonidine HCl 0.2 MG eCW1 ([facility]) Clonidine Hydrochloride 0.2 MG Oral Tablet Clonidine H Cl 0.2 MG Clonidine HCl 0.2 MG 12/24/2019 12:00:00 AM EDT 1.0 {tablet} activ e Clonidine HCl 0.2 MG eCW1 ([facility]) Clonidine Hydrochloride 0.2 MG Oral Tablet Clonidine H Cl 0.2 MG Clonidine HCl 0.2 MG 12/24/2019 12:00:00 AM EDT 1.0 {tablet} suspe nded Clonidine HCl 0.2 MG eCW1 ([facility]) Clonidine Hydrochloride 0.2 MG Oral Tablet Clonidine H Cl 0.2 MG Clonidine HCl 0.2 MG 12/24/2019 12:00:00 AM EDT 1.0 {tablet} activ e Clonidine HCl 0.2 MG eCW1 ([facility]) Clonidine Hydrochloride 0.2 MG Oral Tablet Clonidine H Cl 0.2 MG Clonidine HCl 0.2 MG 12/24/2019 12:00:00 AM EDT 1.0 {tablet} activ e Clonidine HCl 0.2 MG eCW1 ([facility]) Clonidine Hydrochloride 0.2 MG Oral Tablet Clonidine H Cl 0.2 MG Clonidine HCl 0.2 MG 12/24/2019 12:00:00 AM EDT 1.0 {tablet} activ e Clonidine HCl 0.2 MG eCW1 ([facility]) Clonidine Hydrochloride 0.2 MG Oral Tablet Clonidine H Cl 0.2 MG Clonidine HCl 0.2 MG 12/24/2019 12:00:00 AM EDT 1.0 {tablet} suspe nded Clonidine HCl 0.2 MG eCW1 ([facility]) Clonidine Hydrochloride 0.2 MG Oral Tablet Clonidine H Cl 0.2 MG Clonidine HCl 0.2 MG 12/24/2019 12:00:00 AM EDT 1.0 {tablet} suspe nded Clonidine HCl 0.2 MG eCW1 ([facility]) Clonidine Hydrochloride 0.2 MG Oral Tablet Clonidine H Cl 0.2 MG Clonidine HCl 0.2 MG 12/24/2019 12:00:00 AM EDT 1.0 {tablet} activ e Clonidine HCl 0.2 MG eCW1 ([facility]) Clonidine Hydrochloride 0.2 MG Oral Tablet Clonidine H Cl 0.2 MG Clonidine HCl 0.2 MG 12/24/2019 12:00:00 AM EDT 1.0 {tablet} activ e Clonidine HCl 0.2 MG eCW1 ([facility]) 300 mg 12/13/2019 12:00:00 [...] DOSE = 1 SOLD: 11/21/2019 [facility] 21 mg/24 hr 11/18/2019 12:00:00 AM EDT [...] TABLET BY MOUTH EVERY DAY SOLD: 11/06/2019 [facility] 2 mg 11/04/2019 12:00:00 AM EDT [...] {tablet_at_bedtime} active Clonazepam 0 .5 MG eCW1 ([facility]) Clonazepam 0.5 MG Oral Tablet Clonazepam 0.5 MG 11/04/2019 12:00:00 AM EDT 1.0 {tablet_at_bedtime} active Clonazepam 0 .5 MG eCW1 ([facility]) lisdexamfetamine dimesylate 50 MG Oral Capsule [Vyvans e] Vyvanse 50 MG Vyvanse 50 MG 11/04/2019 12:00:00 AM EDT 1.0 {capsule_in_the_morning} active Vyvanse 50 MG eCW1 ([facility]) Citalopram 20 MG Oral Tablet [Celexa] Celexa 20 MG Celexa 20 MG 11/04/2019 12:00:00 AM EDT 1.0 {tablet} active Ce elise 20 MG eCW1 ([facility]) Citalopram 20 MG Oral Tablet [Celexa] Celexa 20 MG Celexa 20 MG 11/04/2019 12:00:00 AM EDT 1.0 {tablet} active Ce elise 20 MG eCW1 ([facility]) lisdexamfetamine dimesylate 50 MG Oral Capsule [Vyvans e] Vyvanse 50 MG Vyvanse 50 MG 11/04/2019 12:00:00 AM EDT 1.0 {capsule_in_the_morning} active Vyvanse 50 MG eCW1 ([facility]) Citalopram 20 MG Oral Tablet [Celexa] Celexa 20 MG Celexa 20 MG 11/04/2019 12:00:00 AM EDT 1.0 {tablet} active Ce elise 20 MG eCW1 ([facility]) 75 mg 11/02/2019 12:00:00 AM EDT tablet [...] A DAY FOR 10 DAYS SOLD: 07/23/2019 [facility] 8-2 mg 07/23/2019 12:00:00 AM [...] 1.0 {tablet} active Risperdal 3 MG eCW1 ([facility]) Risperidone 3 MG Oral Tablet [Risperdal] Risperdal 3 MG Risp erdal 3 MG 07/07/2019 12:00:00 AM EDT 1.0 {tablet} active Risperdal 3 MG eCW1 ([facility]) Risperidone 3 MG Oral Tablet [Risperdal] Risperdal 3 MG Risp erdal 3 MG 07/07/2019 12:00:00 AM EDT 1.0 {tablet} active Risperdal 3 MG eCW1 ([facility]) Risperidone 2 MG Oral Tablet [Risperdal] Risperdal 2 MG Risp erdal 2 MG 07/07/2019 12:00:00 AM EDT 1.0 {tablet} active Risperdal 2 MG eCW1 ([facility]) Risperidone 3 MG Oral Tablet [Risperdal] Risperdal 3 MG Risp erdal 3 MG 07/07/2019 12:00:00 AM EDT 1.0 {tablet} active Risperdal 3 MG eCW1 ([facility]) Risperidone 3 MG Oral Tablet [Risperdal] Risperdal 3 MG Risp erdal 3 MG 07/07/2019 12:00:00 AM EDT 1.0 {tablet} active Risperdal 3 MG eCW1 ([facility]) Risperidone 2 MG Oral Tablet [Risperdal] Risperdal 2 MG Risp erdal 2 MG 07/07/2019 12:00:00 AM EDT 1.0 {tablet} active Risperdal 2 MG eCW1 ([facility]) Risperidone 3 MG Oral Tablet [Risperdal] Risperdal 3 MG Risp erdal 3 MG 07/07/2019 12:00:00 AM EDT 1.0 {tablet} active Risperdal 3 MG eCW1 ([facility]) Risperidone 3 MG Oral Tablet [Risperdal] Risperdal 3 MG Risp erdal 3 MG 07/07/2019 12:00:00 AM EDT 1.0 {tablet} active Risperdal 3 MG eCW1 ([facility]) Risperidone 3 MG Oral Tablet [Risperdal] Risperdal 3 MG Risp erdal 3 MG 07/07/2019 12:00:00 AM EDT 1.0 {tablet} active Risperdal 3 MG eCW1 ([facility]) Risperidone 3 MG Oral Tablet [Risperdal] Risperdal 3 MG Risp erdal 3 MG 07/07/2019 12:00:00 AM EDT 1.0 {tablet} active Risperdal 3 MG eCW1 ([facility]) Risperidone 3 MG Oral Tablet [Risperdal] Risperdal 3 MG Risp erdal 3 MG 07/07/2019 12:00:00 AM EDT 1.0 {tablet} active Risperdal 3 MG eCW1 ([facility]) Risperidone 2 MG Oral Tablet [Risperdal] Risperdal 2 MG Risp erdal 2 MG 07/07/2019 12:00:00 AM EDT 1.0 {tablet} active Risperdal 2 MG eCW1 ([facility]) Risperidone 3 MG Oral Tablet [Risperdal] Risperdal 3 MG Risp erdal 3 MG 07/07/2019 12:00:00 AM EDT 1.0 {tablet} active Risperdal 3 MG eCW1 ([facility]) 8-2 mg 06/27/2019 12:00:00 AM EDT film 56 PLACE TWO FILMS UNDER THE TONGUE EVERY DAY MAXIMUM DAILY DOSE = 2 PLACE TWO FILMS UNDER THE TONGUE EVERY D AY MAXIMUM DAILY DOSE = 2 SOLD: 06/27/2019 [facility] 400 mg 06/23/2019 12:00:00 AM EDT [...] MOUTH THREE TIMES A DAY SOLD: 06/19/2019 [facility] 20 mg 06/18/2019 12:00:00 AM EDT capsule,delayed release (DR/EC) 30 TAKE ONE CAPSULE BY MOUTH EVERY DAY TAKE ONE CAPSULE BY MOUTH EVERY DAY SOLD: 06/18/2019 [facility] 137 mcg (0.1 %) 06/18/2019 12:00:00 AM EDT aerosol,spray 30 USE 2 SPRAYS IN EACH NOSTRIL TWO TIMES A DAY USE 2 SPRAYS IN EACH NOSTRIL TWO TIMES A DAY SOLD: 06/18/2019 [facility] 20 mg 06/15/2019 12:00:00 AM EDT tablet 15 TAKE THREE TABLETS BY MOUTH EVERY DAY TAKE THREE TABLETS BY MOUTH EVERY DAY SOLD: 06/18/2019 [facility] Famotidine 20 MG Oral Tablet FAMOTIDINE 06/15/2019 12:00:00 AM EDT tab let 10 TAKE ONE TABLET BY MOUTH EVERY DAY TAKE ONE TABLET BY MOUTH EVERY DAY SOLD: 06/18/2019 [facility] Clonidine Hydrochloride 0.1 MG Oral Tablet CLONIDINE HCL 06/06/2019 12:00:00 AM EDT tablet 60 TAKE ONE TABLET BY MOUTH TWI CE A DAY TAKE ONE TABLET BY MOUTH TWICE A DAY SOLD: 08/20/2019 [facility] 80 mg 06/06/2019 12:00:00 AM EDT tablet 30 TAKE ONE TABLET BY MOUTH EVERY DAY WITH FOOD TAKE ONE TABLET BY MOUTH EVERY DAY WITH FOOD SOLD: 06/09/2019 [facility] Clonidine Hydrochloride 0.1 MG Oral Tablet [...] DOSE = 2 FILMS SO LD: 04/04/2019 [facility] 300 mg 03/21/2019 12:00:00 AM EST capsule 30 TAKE ONE CAPSULE BY MOUTH THREE TIMES A DAY FOR 10 DAYS TAKE ONE CAPSULE BY MOUTH THREE TIMES A DAY FOR 10 DAYS SOLD: 03/21/2019 [facility] 50 mg 03/18/2019 12:00:00 AM EST tablet 9 TAKE ONE TABLET BY MOUTH AT ONSET OF HEADACHE, MAY REPEAT IN 2 HOURS TAKE ONE TABLET BY MOUTH AT ONSET OF HEADACHE, MAY REPEAT IN 2 HOURS SOLD: 03/18/2019 [facility] 50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 aboratory and reported by [facility] Laboratory. ID Date Data Source [id number] 11/07/2019 12:19:00 AM EDT [facility] 1 OrderSheet [facility] Emergency Department [address] [place] [address] Phone #: ext- [phone] 11/07/2019 00:19 Patient: BRUNA LEE Sex: F : 1985 Age: 34yWEIGHT:78.9 kg (S)ALLERGIES: Penicillins, Sulfa AntibioticsCHIEF COMPLAINT: nauseaDIAGNOSIS: Drug abuse, Nausea, Normal Exam, AnxietyLAB ORDERSOrder Description Priority Entered Acknowledged [facility] 01:01 11/07/2019 Ack'd: 01:22 Meme 02:24 Evonne Iyer.N. Joel R.NJayro MNeo;CMP STAT 01:11/07/2019 Ack'd: 01:22 Meme 02:24 Meme Darryl Dayana, Evonne KamaraN. M.D.;HCG Serum Qual STAT 01:01 11/07/2019 Ack'd: 01:22 Meme 02:24 Meme Darryl Dayana, Evonne Maldonado R.N. M.D.;CPK STAT 01:11/07/2019 Ack'd: 01:22 Meme 02:24 Meme Darryl Turrin, Evonne Maldonado R.N. M.D.;Urine Drug Screen STAT 01:11/07/2019 Ack'd: 01:22 Meme 02:24 Meme Darryl Dayana, Evonne Maldonado R.N. M.D.;Urinalysis (Clean STAT 01:11/07/2019 Ack'd: 01:22 Meme 02:24 Meme BlairCatch) Dayana, Evonne Maldonado R.N. MNeo;DIAGNOSTIC STUDY ORDERSOrder Description Priority Entered Acknowledged InitialedMEDICATION/IV/DRIP/FLUID ORDERSOrder Description Priority Entered Acknowledged InitialedNS IV 1000 mL 01:01 11/07/2019 Ack'd: 01:22 Meme 02:26 Meme BlairBolus: : Bolus 1000 Evonne Hagen R.N. R.N.mL (X1) M.D.;Zofran 4 mg IVP X 1 01:01 11/07/2019 Ack'd: 01:22 Meme 02:27 Meme Blairdose: 4 mg (NOW Dayana, Evonne Maldonado R.N.x1) M.D.; 2 OrderSheet [facility] Emerg ency Department [address] [place] [address] Phone #: ext- [phone] 11/07/2019 00:19 Patient: BRUNA LEE Sex: F : 1985 Age: 34yGENERAL ORDERSOrder Description Priority Entered Acknowledged Initialed[Electronically signed by Mara Gonzalez R.N. (11/07/2019)][Electronically signed by Evonne Hagen M.D. (05:23 11/07/2019)][Electronically locked by Mara Gonzalez R.N. (11/07/2019)] Name Value Range Interpretation Code Description Data [place] rce(s) Supporting Document(s) ID Date Data Source [id number] 11/07/2019 12:19:00 AM EDT [facility] 1 Medication Reconciliation Report [facility] Emergency Department [address] [place] [address] Phone #: ext- [phone] 11/07/2019 00:19 Patient: [...] rce(s) Supporting Document(s) ID Date Data Source [id number] 11/07/2019 12:19:00 AM EDT [facility] 1 Medication Administration Record [facility] Emergency Department [address] [place] [address] Phone #: ext [phone] 11/07/2019 00:19 Patient: BRUNA LEE Sex: F : 1985 Age: 34yWeight: 78.9 kgHeight/Length: 60 inBMI: 34ALLERGIES: Penicillins, Sulfa Antibiotics Date/Time Medication Administered Medication OrderedStart IV NS NS IV 1000 mL Bolus: : Bolus [id number] 11/07/2019 Dose: IV Fluids mL (X1)Meme Maldonado RRandy Rate: 999 mL/hr---- Dispensed: 1000 mL bagStop Site: #1 left wrist03:55 11/07/2019Mara Gonzalez R.N.Given ZOFRAN [IVP] (ONDANSETRON HCL) Zofran 4 mg IVP X 1 dose: 4 mg02:22 11/07/2019 Dose: 4 mg IVP (NOW x1)Meme Maldonado RRandy Site: #1 left wrist Name Value Range Interpretation Code Description Data [place] rce(s) Supporting Document(s) ID Date Data Source [id number] 11/07/2019 12:19:00 AM EDT [facility] 1 General Instructions [facility] Emergency Department [address] [place] [address] Phone #: ext [phone] 11/07/2019 00:19 Patient: BRUNA LEE Sex: F [...] to plan of care. 2 General Instructions [facility] Emergency Department [address] [place] [address] Phone #: ext- [phone] 11/07/2019 00:19 Patient: [...] Tiredness Inability to sleep 3 General Instructions [facility] Emergency Department [address] [place] [address] Phone #: ext- [phone] 11/07/2019 00:19 Patient: [...] provider or go to a local bookstore andreview the many books and tapes available on this subject.Follow-up careIf you feel that your anxiety is not responding to self- help measures, contact your healthcare provideror make an appointment with a counselor. You may need short-term psychological counseling andtemporary medicine to help you manage stress. 4 General Instructions [facility] Emergency Department [address] [place] [address] Phone #: ext- [phone] 11/07/2019 00:19 Patient: [...] relieved by rest and mild pain reliever [id number] [employer]. [address] [place] [address], [place] [address]. All rights reserved. This information is not intended as asubstitute for professional medical care. Always follow your healthcare professional's instructions. You have been given the following additional information: Anxiety Reaction(Electronically signed by Evonne Hagen M.D. 11/07/2019 05:23) Name Value Range Interpretation Code Description Data [place] rce(s) Supporting Document(s) ID Date Data Source [id number] 11/07/2019 12:19:00 AM EDT [facility] 1 Clinical Report - Nurses [facility] Emergency Department [address] [place] [address] Phone #: ext- [phone] 11/07/2019 00:19 Patient: BRUNA LEE Sex: F : 1985 Age: 34yTRIAGEHistorian: EMS and patient.Triage time: 00:24 11/07/2019.Chief Complaint: NAUSEA and ("face swelling").Onset. (states that it has been going on all day.). ( states that she has been sleeping a lot and used Molly2 days ago. 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 --00:27 11/07/19 Meme Maldonado R.N.Acuity: LEVEL 3.( Whole body aches 12/05.).SEPSIS SCREEN: SIRS Screen: heart rate greater than 90. Sepsis Screen negative. No suspected orconfirmed signs of infection present. --00:35 11/07/19 Meme Maldonaod R.N.00:33 11/07/19. BP: 94/68. MAP: 76. HR: 112. RR: 16. O2 saturation: 98%. Temp: 98.1 F. Pain level now:12/05. --00:35 11/07/19 Meme Maldonado R.N.Weight: 78.9 kg stated. Height/Length: 60 inches Per Patient. BMI: 34. --00:24 11/07/19 Meme Maldonado R.N.MedicationsAmitriptyline HCl Oral. Gabapentin Oral. Keppra Oral. RisperDAL Oral. Stomach pill, name unknown. Strattera Oral. Suboxone Sublingual (Film 8-2 mg), daily. --00:11/07/19 Meme Maldonado R.N. clonazePAM Oral (new rx starts tomorrow). --00:11/07/19 Carlos Maldonado R.N.AllergiesPenicillins.(hives)Sulfa Antibiotics. --00:11/07/19 Meme Maldonado R.N.HistoryPAST MEDICAL HX: Gastroesophageal reflux disease. Peptic ulcer disease. Last normal menstrualperiod unknown- last month. 2 Clinical Report - Nurses [facility] Emergency Department [address] [place] [address] Phone #: ext- [phone] 11/07/2019 00:19 Patient: [...] hanging, cutting wrists and OD pills. Was IMHU 3 wks. Last admit 2017. Sees a [...] taking this medication. Verbalizes understanding. --02:27 11/07/19 Mmee Maldonado R.N. 02:26 11/07/2019 Started bag #1 1000 mL IV Fluids IV NS; at 999 mL/hr via site #1 via IV pump. Allergies 3 Clinical Report - Nurses [facility] Emergency Department [address] [place] [address] Phone #: ext- [phone] 11/07/2019 00:19 Patient: BRUNA LEE Sex: F : 1985 Age: 34y verified and confirmed 5 rights. IV patency established. IV site checked: no pain, redness, or swelling. IV flushed thoroughly pre- and post-medication administration. Information reviewed with patient including reason for taking this medication. Verbalizes understanding. --02:26 11/07/19 Meme Maldonado R.N. Checked patient name and birthdate: patient confirmed. Clean catch urine collected with return of yellow-colored bruna-colored clear urine; sample sent to lab for urinalysis and drug screen. Specimen labeled in the presence of the patient. --02:27 11/07/19 Meme Maldonado R.N. The patient is calm and resting quietly. ( [place] provided. Reassurance given to pt. Lights dimmed. [...] Patient verbalized understanding. Written instructions provided in Greek. The patient was discharged by the physician. [...] rce(s) Supporting Document(s) ID Date Data Source [id number] 11/07/2019 12:19:00 AM EDT [facility] 1 Clinical Report - Physicians/Mid Levels [facility] Emergency Department [address] [place] [address] Phone #: ext- [phone] 11/07/2019 00:19 Patient: [...] no Meth in over 2 weeks; woke WELLHEAD PUMPER w face swelling and nausea, no other Sx, no withdrawal, ROS otw neg.; pt known at [facility] for multiple ER visits for different somatic [...] Repair. 2 Clinical Report - Physicians/Mid Levels [facility] Emergency Department [address] [place] [address] Phone #: ext- [phone] 11/07/2019 00:19 Patient: [...] (Reference) 3 Clinical Report - Physicians/Mid Levels [facility] Emergency Department [address] [place] [address] Phone #: ext- [phone] 11/07/2019 00:19 Patient: [...] Male GFR Interprentation 20-49 yrs >60 mL/min Qszpvh41-41 yrs >56 mL/min Normal 60- 69 yrs >49 mL/min Normal 70-79yrs>42 mL/min Normal 80 and above >35 mL/min Normal Female GFRInterpretation 20-39 yrs >60 mL/min Normal 40-49 yrs >58 mL/minNormal 50-59 yrs >51 mL/min Normal 60-69 yrs >45 mL/min Normal 4 Clinical Report - Physicians/Mid Levels [facility] Emergency Department [address] [place] [address] Phone #: ext- [phone] 11/07/2019 00:19 Patient: BRUNA LEE Sex: F : 1985 Age: 10o92-82 yrs >39 mL/min Normal 80 and above >32 mL/min NormalBeta-HCG, Qual Serum: (JENN: 11/07/2019 02:15) ( NjgRcvd 11/07/2019 03:20) Final results Test Result Flag Units (Reference) HCG SERUM QUAL NEGATIVE (NORMAL: NEGAT HCG SERUM QL REENTER NEGATIVE (NORMAL: NEGAT { KIT LOT # [id number] ){ KIT EXP [id number] ){ PROCEDURAL CONTROL VALID)CPK: (JENN: 11/07/2019 02:15) ( MsgRcvd 11/07/2019 03:15) [...] PRESUMPTIVE POSITIVE CONFIRMATION WILL BE PERFORMED AT [facility].Urinalysis: (JENN: 11/07/2019 02:00) ( MsgRcvd 11/07/2019 [...] Indicate 5 Clinical Report - Physicians/Mid Levels [facility] Emergency Department [address] [place] [address] Phone #: ext- [phone] 11/07/2019 00:19 Patient: BRUNA LEE Sex: F : 1985 Age: 34y.PROGRESS AND PROCEDURESCourse of Care: 00:56 11/07/19. Data Detail Level: Printer-Friendly View Extended ViewConfidential Drug Utilization ReportSearch Terms: bruna lee, 1985Search Date: 11/07/2019 00:56:41 AMThe Drug Utilization Report below displays all of the controlled substance prescriptions, if any, that yourpatient has filled in the last twelve months. The information displayed on this report is compiled frompharmacy submissions to the Department, and accurately reflects the information as submitted by thepharmacies. This report was requested by: Evonne Hagen Reference #: [id number] Others' Prescriptions Patient Name: Bruna LeeBirth Date: 1985 Address: [address] [place] [id number]: Female Rx Written Rx Dispensed Drug Quantity Days Supply Prescriber Name Payment Method Dispenser 10/28/2019 10/28/2019 buprenorphine-naloxone 8-2 mg sl film 56 28 MoehJose J hopson MD Medicaid [facility] 09/30/2019 09/30/2019 buprenorphine-naloxone 8-2 mg sl film 56 28 MoehJose J hopson MD Medicaid [facility] 08/28/2019 08/28/2019 buprenorphine-naloxone 8-2 mg sl film 56 28 MoehJose J hopson MD Medicaid [facility] 07/23/2019 07/29/2019 buprenorphine-naloxone 8-2 mg sl film 56 28 MoehJose J hopson MD Medicaid [facility] 06/27/2019 06/27/2019 buprenorphine-naloxone 8-2 mg sl film 56 28 MoehJose J hopson MD Medicaid [facility] 05/29/2019 05/30/2019 buprenorphine-naloxone 8-2 mg sl film 56 28 MoehJose J hoposn MD Medicaid [facility] 05/01/2019 05/01/2019 buprenorphine-naloxone 8-2 mg sl film 56 28 MoJose J dumont MD Medicaid [facility] 04/03/2019 04/04/2019 buprenorphine-naloxone 8-2 mg sl film 56 28 MoJose J hopson MD Medicaid [facility] 03/06/2019 03/06/2019 buprenorphine-naloxone 8-2 mg sl film 56 28 MoehJose J hopson MD Medicaid [facility] 02/06/2019 02/06/2019 suboxone 12 mg-3 mg sl film 28 28 Jose J Mao MD Medicaid [facility] 01/08/2019 01/08/2019 suboxone 12 mg-3 mg sl film 28 28 RobertJose J dumont MD Medicaid [facility] 12/10/2018 12/10/2018 suboxone 8 mg-2 mg sl film 56 28 [facility] 11/12/2018 11/12/2018 suboxone 8 mg-2 mg sl film 56 28 [facility] [place] [facility] * - Drugs marked with an asterisk are compound drugs. If the compound drug is made up of more than one controlled substance, then each controlled substance will be a separate row in the table. 6 Clinical Report - Physicians/Mid Levels [facility] Emergency Department [address] [place] [address] Phone #: ext- [phone] 11/07/2019 00:19 Patient: [...] Oral. 7 Clinical Report - Physicians/Mid Levels [facility] Emergency Department [address] [place] [address] Phone #: ext- [phone] 11/07/2019 00:19 Patient: [...] to plan of care.(Electronically signed by Evonne Hagen M.D. 11/07/2019 05:23) Name Value Range Interpretation Code Description Data [place] rce(s) Supporting Document(s) ID Date Data Source [id number] 11/07/2019 03:20:00 AM EDT [facility] Name Value Range Interpretation Code Description Data [place] rce(s) Supporting Document(s) HCG SERUM QUAL NEGATIVE NORMAL: NEGATIVE [facility] HCG SERUM QL REENTER NEGATIVE NORMAL: NEGATIVE [facility] { KIT LOT # [id number] ){ KIT EXP DATE 12-08-20 ){ PROCEDURAL CONTROL VALID ) ID Date Data Source [id number] 11/07/2019 03:15:00 AM EDT [facility] Name Value Range Interpretation Code Description Data [place] rce(s) Supporting Document(s) Creatine kinase [Enzymatic activity/volume] in Serum or Plasma 3 13 U/L 30 - 170 H [facility] ID Date Data Source [id number] 11/07/2019 03:14:00 AM EDT [facility] Name Value Range Interpretation Code Description Data [place] rce(s) Supporting Document(s) COMPREHENSIVE METABOLIC PANEL [facility] COMPREHENSIVE METABOLIC PANEL Sodium [Moles/volume] in Serum or Plasma 140 mEq/L 134 - 153 [facility] Potassium [Moles/volume] in Serum or Plasma 3.8 mEq/L 3.6 - 5.0 [facility] Chloride [Moles/volume] in Serum or Plasma 100 mEq/L 98 - 107 [facility] Carbon dioxide, total [Moles/volume] in Serum or Plasma 30 MEQ/L 22 - 30 [facility] [facility] Glucose [Mass/volume] in Serum or Plasma 98 MG/DL 65 - 110 [facility] BUN 14 MG/DL 7 - 21 [facility] Creat[facility] [Mass/volume] in Serum or Plasma 0.7 MG/DL 0.7 - 1.5 [facility] BUN/CREAT 20 8 - 27 [facility] Protein [Mass/volume] in Serum or Plasma 5.9 G/DL 6.3 - 8.2 L [facility] Albumin [Mass/volume] in Serum or Plasma 3.6 G/DL 3.9 - 5.0 L [facility] Globulin [Mass/volume] in Serum by calculation 2.3 GM/DL 2.4 - 3.2 L [facility] A/G RATIO 1.6 0.8 - 2.0 [facility] Calcium [Mass/volume] in Serum or Plasma 9.2 MG/DL 8.4 - 10.2 [facility] Bilirubin.total [Mass/volume] in Serum or Plasma <0.7 MG/DL 0.2 - 1.3 [facility] Alkaline phosphatase [Enzymatic activity/volume] in Serum or Plasma 62 U/L 38 - 126 [facility] Aspartate aminotransferase [Enzymatic activity/volume] in Serum or Plasma 302 U/L 5 - 40 H [facility] Alanine aminotransferase [Enzymatic activity/volume] in Seru m or Plasma 125 U/L 7 - 56 H [facility] Anion gap 3 in Serum or Plasma 10.0 mmol/L 8.0 - 16.0 [facility] AGE 34 yrs [facility] al NON-AA GFR >60 mL/min [facility] ital AFR AMER GFR >60 mL/min [facility] Ho spital Male GFR In terprentation [...] >32 mL/min Normal ID Date Data Source [id number] 11/07/2019 02:27:00 AM EDT [facility] Name Value Range Interpretation Code Description Data [place] rce(s) Supporting Document(s) CBC W/AUTOMATED DIFF [facility] COMPLETE BLOOD COUNT Leukocytes [#/volume] in Blood by Automated count 8.3 10^3/uL 4.2 - 1 1.0 [facility] Erythrocytes [#/volume] in Blood by Automated count 3.87 10^6/uL 4. 20 - 5.40 L [facility] Hemoglobin [Mass/volume] in Blood 11.6 g/dL 12.0 - 16.0 L [facility] Hematocrit [Volume Fraction] of Blood by Automated count 36.0 % 3 7.0 - 47.0 L [facility] Erythrocyte mean corpuscular volume [Entitic volume] by Auto mated count 93.0 fL 81.0 - 101 [facility] Erythrocyte mean corpuscular hemoglobin [Entitic mass] by Automated count 30.0 pg 27.0 - 34.0 [facility] Erythrocyte mean corpuscular hemoglobin concentration [Mass/volume] by Automated count 32.2 g/dL 31.0 - 36.0 [facility] Erythrocyte distribution width [Ratio] by Automated count 13.3 % 11.5 - 14.5 [facility] Platelets [#/volume] in Blood by Automated count 271 10^3/uL 150 - 45 0 [facility] Platelet mean volume [Entitic volume] in Blood by Automated count 9.5 fL 7.4 - 10.4 [facility] Neutrophils/100 leukocytes in Blood by Automated count 82.6 % 37. 0 - 80.0 H [facility] Lymphocytes/100 leukocytes in Blood by Manual count 14.3 % 25.0 - 40.0 L [facility] Monocytes/100 leukocytes in Blood by Automated count 1.6 % 3.0 - 8.0 L [facility] Eosinophils/100 leukocytes in Blood by Automated count 0.8 % 0.0 - 7.0 [facility] Basophils/100 leukocytes in Blood by Automated count 0.2 % 0.0 - 2.5 [facility] %IG 0.5 % 0.0 - 0.0 H [facility] %NRBC 0.0 % 0.0 - 0.0 [facility] al Neutrophils [#/volume] in Blood by Automated count 6.85 10^3/uL 2.00 - 6.90 [facility] Lymphocytes [#/volume] in Blood by Automated count 1.19 10^3/uL 0.60 - 3.40 [facility] Monocytes [#/volume] in Blood by Automated count 0.13 10^3/uL 0.00 - 0.90 [facility] Eosinophils [#/volume] in Blood by Automated count 0.07 10^3/uL 0.00 - 0.70 [facility] Basophils [#/volume] in Blood by Automated count 0.02 10^3/uL 0.00 - 0.20 [facility] #IG 0.04 10^3/uL 0.00 - 0.10 [facility] ospital #NRBC 0.00 10^3/uL 0.00 - 0.00 [facility] ospital MANUAL DIFF NOT INDICATED [facility] RBC MORPH NOT INDICATED [facility] Ho spital ID Date Data Source [id number] 11/07/2019 03:14:00 AM EDT [facility] Name Value Range Interpretation Code Description Data [place] rce(s) Supporting Document(s) DRUG SCREEN URINE [facility] URINE DRUG SCREEN Amphetamine [Presence] in Urine by Screen method PRESUMP POS LISANDRA L: NEGATIVE [facility] BARBITURATES NEGATIVE NORMAL: NEGATIVE [facility] BENZO NEGATIVE NORMAL: NEGATIVE [facility] COCAINE NEGATIVE NORMAL: NEGATIVE [facility] Tetrahydrocannabinol [Presence] in Urine NEGATIVE NORMAL: NEGATIVE [facility] OPIATES NEGATIVE NORMAL: NEGATIVE [facility] Phencyclidine [Presence] in Urine by Screen method NEGATIVE NOR MAL: NEGATIVE [facility] \\BLDo\\URINE DRUG SCR EEN INTERPRETATION\\BLDx\\ THE CUTOFFF LEVELS FOR DETECTION ARE FOLLOWS: AMPHETAMINES 1000 ng/ml BARBITUARATES 200 ng/ml BENZODIAZEPINES 100 ng/ml THC 50 ng/ml PHENCYCLIDINE 25 ng/ml OPIATES 300 ng/ml COCAINE 300 ng/ml ALL POSITIVES ARE CONSIDERED PRESUMPTIVE POSITIVE CONFIRMATION WILL BE PERFORMED AT PHYSICIAN REQUEST. ID Date Data Source [id number] 11/07/2019 02:27:00 AM EDT [facility] Name Value Range Interpretation Code Description Data [place] rce(s) Supporting Document(s) [facility]IS [facility] URINALYSIS SOURCE R [facility] COLOR yellow NORMAL: Yellow [facility] ospital CLARITY clear NORMAL: Clear [facility] spital Specific gravity of Urine by Test strip 1.020 1.001 - 1.030 [facility] pH 6 5 - 9 [facility] al Glucose [Mass/volume] in Urine by Test strip NORM NORMAL: Negat [facility] Bilirubin.total [Presence] in Urine by Test strip NEG NORMAL: Negative [facility] Ketones [Presence] in Urine by Test strip NEG NORMAL: Negative [facility] Protein [Mass/volume] in Urine by Test strip NEG NORMAL: Negat [facility] Nitrite [Presence] in Urine by Test strip NEG NORMAL: Negative [facility] BLOOD NEG NORMAL: Negative [facility] Leukocyte esterase [Presence] in Urine by Test strip NEG LISANDRA L: Negative [facility] Urobilinogen [Mass/volume] in Urine by Test strip 1 less kenna n 1.0 mg/dL [facility] MICROSCOPIC Not Indicate [facility] ospital ID Date Data Source [id number] 10/30/2019 10:27:[address] [facility] Name Value Range Interpretation Code Description Data [place] rce(s) Supporting Document(s) BG FASTING 132 mg/dL 70-100 H [facility] TSH 0.526 microintl units/mL 0.358-3.740 [facility] Family [facility] ID Date Data Source [id number] 10/30/2019 10:27:[address] [facility] Name Value Range Interpretation Code Description Data [place] rce(s) Supporting Document(s) HCT 37.6 % 36.0-47.[address] [facility] HGB 11.8 g/dL 12.0-15.[address] [facility] MCH 31.4 G/DL pg 32.0-36.5 L [facility] MCHC 29.9 PG % 27.0-33.[address] [facility] PLATELETS 209 10 10*3/mm3 150-[address] [facility] RBC 3.94 10 10*6/mm3 4.00-5.[address] [facility] RDW 12.6 % 11.5-14.[address] [facility] WBC TOTAL 4.5 4.0-10.[address] [facility] ID Date Data Source [id number] 10/13/2019 03:25:[address] [facility] Name Value Range Interpretation Code Description Data [place] rce(s) Supporting Document(s) HCT 40.7 % 36.0-47.[address] [facility] HGB 13.3 g/dL 12.0-15.5 [facility] MCH 32.7 G/DL pg 32.0-36.5 N [facility] MCHC 30.4 PG % 27.0-33.0 [facility] PLATELETS 288 10 10*3/mm3 150-[address] [facility] RBC 4.37 10 10*6/mm3 4.00-5.40 [facility] RDW 12.4 % 11.5-14.5 [facility] WBC TOTAL 8.7 4.0-10.0 [facility] ID Date Data Source [id number] 10/09/2019 02:09:00 AM EDT [facility] 1 OrderSheet [facility] Emergency Department [address] [place] [address] Phone #: ext- [phone] 10/09/2019 02:08 Patient: [...] 03:39 Meme Narvaez X1 dose: 800 Evonne Hagen R.N., R.N.mg (NOW x1) Jeremie;GENERAL ORDERSOrder Description Priority Entered Acknowledged Initialed[Electronically signed by Evonne Hagen M.D. (03:51 10/09/2019)][Electronically signed by Meme Damon R.N. (07:29 10/09/2019)][Electronically locked by Meme Damon R.N. (07:10/09/2019)] Name Value Range Interpretation Code Description Data [place] rce(s) Supporting Document(s) ID Date Data Source [id number] 10/09/2019 02:09:00 AM EDT [facility] 1 Medication Reconciliation Report [facility] Emergency Department [address] [place] [address] Phone #: ext- [phone] 10/09/2019 02:08 Patient: [...] rce(s) Supporting Document(s) ID Date Data Source [id number] 10/09/2019 02:09:00 AM EDT [facility] 1 Medication Administration Record [facility] Emergency Department [address] [place] [address] Phone #: ext- [phone] 10/09/2019 02:08 Patient: BRUNA LEE Sex: F : 1985 Age: 34yWeight: 81.1 kgHeight/Length: 60 inBMI: 34.9ALLERGIES: Penicillins, Sulfa Antibiotics Date/Time Medication Administered Medication OrderedGiven IBUPROFEN [PO] Ibuprofen 800 mg PO X1 dose: 08622:39 10/09/2019 Dose: 800 mg Tablets PO mg (NOW x1)Meme Maldonado R.N. Name Value Range Interpretation Code Description Data [place] rce(s) Supporting Document(s) ID Date Data Source [id number] 10/09/2019 02:09:00 AM EDT [facility] 1 General Instructions [facility] Emergency Department [address] [place] [address] Phone #: ext [phone] 10/09/2019 02:08 Patient: BRUNA LEE Sex: F [...] INFORMATIONViral Pharyngitis (Sore Throat) 2 General Instructions [facility] Emergency Department [address] [place] [address] Phone #: ext- [phone] 10/09/2019 02:08 Patient: [...] glass of warm water. 3 General Instructions [facility] Emergency Department [address] [place] [address] Phone #: ext- [phone] 10/09/2019 02:08 Patient: [...] breathing or noisy breathing 4 General Instructions [facility] Emergency Department [address] [place] [address] Phone #: ext- [phone] 10/09/2019 02:08 Patient: BRUNA LEE Sex: F : 1985 Age: 34y Muffled voice New rash Other symptoms are getting worse [id number] [employer]. [address] [place] [address]. All rights reserved. This information is not intended as asubstitute for professional medical care. Always follow your healthcare professional's instructions. You have been given the following additional information: Pharyngitis, Viral(Electronically signed by Evonne Hagen M.D. 10/09/2019 03:51) Name Value Range Interpretation Code Description Data [place] rce(s) Supporting Document(s) ID Date Data Source [id number] 10/09/2019 02:09:00 AM EDT [facility] 1 Clinical Report - Nurses [facility] Emergency Department [address] [place] [address] Phone #: ext- [phone] 10/09/2019 02:08 Patient: BRUNA LEE Sex: F : 1985 Age: 34yTRIAGEHistorian: EMS and patient.Triage time: 02:08 10/09/2019.Chief Complaint: SORE THROAT.This started just prior to arrival. The patient has had a hoarse voice.Treatment WELLHEAD PUMPER:Took Tylenol. (arthritis kind).EMS Treatment WELLHEAD PUMPER:See EMS report.SEPSIS SCREEN: SIRS Screen: heart rate greater than 90. Sepsis Screen negative. No suspected orconfirmed signs of infection present. --02:14 10/09/19 Meme Maldonado R.N.02:10/09/19. BP: 130/86. MAP: 100. HR: 105. RR: 18. O2 saturation: 100%. Temp: 98.5 F. Pain levelnow: 12/05. --02:14 10/09/19 Meme Maldonado R.N.Treatment WELLHEAD PUMPER:(Seen at [facility] for this issue within the last few days, states that they could not figure out what was wrongwith her.). --02:28 10/09/19 Meme Maldonado R.N.Acuity: LEVEL 4.02:11 10/09/19. --07:29 10/09/19 Meme Maldonado R.N.Weight: 81.1 kg measured. Height/Length: 60 inches Per Patient. BMI: 34.9. --02:08 10/09/19 Meme Jordan R.N.MedicationsRisperDAL Oral. --02:15 10/09/19 Meme Maldonado R.N. Keppra Oral. --02:15 10/09/19 Meme Maldonado R.N. Strattera Oral. --02:10/09/19 Meme Maldonado R.N. Amitriptyline HCl Oral. --02:15 10/09/19 Meme Maldonado R.N. Gabapentin Oral. --02:15 10/09/19 Meme Maldonado R.N. Stomach pill, name unknown. --02:16 10/09/19 Meme Maldonado R.N. Suboxone Sublingual (Film 8-2 mg), daily. --02:21 10/09/19 Meme Maldonado R.N.AllergiesPenicillins.(hives) 2 Clinical Report - Nurses [facility] Emergency Department [address] [place] [address] Phone #: ext- [phone] 10/09/2019 02:08 [id number] Sex[facility] F : 1985 Age: 34y Sulfa Antibiotics. --02:16 10/09/19 Meme Maldonado R.N. PROBLEMS: Anxiety Reaction. Depression. ADHD - Attention Deficit Hyperactivity Disorder. Schizophrenia. PTSD. Seizure Disorder. --02:10/09/19 Meme Maldonado R.N. ADDITIONAL SURGERIES: Hernia Repair (Umbilical ). --02:10/09/19 Meme Maldonado R.N. History PAST MEDICAL HX: [...] Dental decay. 3 Clinical Report - Nurses [facility] Emergency Department [address] [place] [address] Phone #: ext- [phone] 10/09/2019 02:08 Patient: [...] Patient verbalized understanding. Written instructions provided in Greek. The patient was discharged by the physician. [...] rce(s) Supporting Document(s) ID Date Data Source [id number] 10/09/2019 02:09:00 AM EDT [facility] 1 Clinical Report - Physicians/Mid Levels [facility] Emergency Department [address] [place] [address] Phone #: ext- [phone] 10/09/2019 02:08 Patient: [...] (per EMS, pt is well known to [facility] ER for multiple ER visits for multiple somatic and psychiatric complaints; tonight, she complains of sore throat, hoarse voice, bugs on her skin, etc.; pt has therapist in [place]). Similar symptoms previously. Patient has had similar [...] Medications: 2 Clinical Report - Physicians/Mid Levels [facility] Emergency Department [address] [place] [address] Phone #: ext- [phone] 10/09/2019 02:08 Patient: [...] PROCEDURAL CONTROL VALID ){ KIT LOT # [id number] ){ KIT EXP DATE [id number] )The 3 Clinical Report - Physicians/Mid Levels [facility] Emergency Department [address] [place] [address] Phone #: ext- [phone] 10/09/2019 02:08 Patient: [...] accurately reflects the information as submitted by thepharmacies. This report was requested by: Evonne Hagen Reference #: [id number] Others' Prescriptions Patient Name: Bruna LeeBirth Date: 1985 Address: [address] [place] [id number]: Female Rx Written Rx Dispensed Drug Quantity Days Supply Prescriber Name Payment Method Dispenser 09/30/2019 09/30/2019 buprenorphine-naloxone 8-2 mg sl film 56 28 MoehJose J hopson MD Medicaid [facility] 08/28/2019 08/28/2019 buprenorphine-naloxone 8-2 mg sl film 56 28 MoehJose J hopson MD Medicaid [facility] 07/23/2019 07/29/2019 buprenorphine-naloxone 8-2 mg sl film 56 28 MoehJose J hopson MD Medicaid [facility] 06/27/2019 06/27/2019 buprenorphine-naloxone 8-2 mg sl film 56 28 MoehJose J hopson MD Medicaid [facility] 05/29/2019 05/30/2019 buprenorphine-naloxone 8-2 mg sl film 56 28 MoehJose J hopson MD [facility] 05/01/2019 05/01/2019 buprenorphine-naloxone 8-2 mg sl film 56 28 MoehJose J hopson MD Medicaid [facility] 04/03/2019 04/04/2019 buprenorphine-naloxone 8-2 mg sl film 56 28 MoehJose J hopson MD Medicaid [facility] 03/06/2019 03/06/2019 buprenorphine-naloxone 8-2 mg sl film 56 28 MoJose J hopson MD Medicaid [facility] 02/06/2019 02/06/2019 suboxone 12 mg-3 mg sl film 28 28 MoehJose J hopson MD Medicaid [facility] 01/08/2019 01/08/2019 suboxone 12 mg-3 mg sl film 28 28 MoJose J hopson MD Medicaid [facility] 12/10/2018 12/10/2018 suboxone 8 mg-2 mg sl film 56 28 Jose J Mao MD Medicaid [facility] 4 Clinical Report - Physicians/Mid Levels [facility] Emergency Department [address] [place] [address] Phone #: [phone] 10/09/2019 02:08 Patient: BRUNA LEE Sex: F : 1985 Age: 34y 11/12/2018 11/12/2018 suboxone 8 mg-2 mg sl film 56 28 Jose J Mao MD Medicaid [facility] 10/15/2018 10/15/2018 suboxone 8 mg-2 [...] unknown*. 5 Clinical Report - Physicians/Mid Levels [facility] Emergency Department [address] [place] [address] Phone #: ext- [phone] 10/09/2019 02:08 Patient: [...] to plan of care.(Electronically signed by Evonne Hagen M.D. 10/09/2019 03:51) Name Value Range Interpretation Code Description Data [facility] campuse(s) Supporting Document(s) ID Date Data Source [id number] 10/09/2019 03:02:00 AM EDT [facility] Name Value Range Interpretation Code Description Data [place] rce(s) Supporting Document(s) RAPID STREP NEGATIVE NORMAL: NEGATIVE [facility] RAPID STREP REENTER NEGATIVE NORMAL: NEGATIVE [facility] { PROCEDURAL CONTROL VALID ){ KIT LOT # [id number] ){ KIT EXP DATE [id number] )The Strep A 2 assay utilizes isothermal [...] basis for treatment. ID Date Data Source [id number] 09/22/2019 02:34:[address] [facility] Measurements & CalculationsHeight: 61 inches (5 [...] (ER) or urgent care clinic? Yes - [facility] Have you seen another healthcare provider? Yes - [facility] Have you seen a dentist? NoIntake performed [...] this is different. [facility] health issues (schizophrenia) and feels that this is going well.HPI performed by: Francesco Ritchie MD, September 22, 2019 2:52 PMTransitions of Care InboundProblem ReviewProblem List was reviewed and/or updated during this visit.Medication Reconciliation & ReviewMedication List was reviewed and/or updated during this visit, including review of any futs-ydz-hldrsin medications, herbal therapies, and/or supplements.Allergy ReviewAllergy List [...] Plan Problems:Added: Hematemesis - cause unknown (ICD-578.0) (IEB45-K58.0) Assessment: Instructions: Currently asymptomatic but worrisome enough to warrant further workup.Avoid NSAIDs and refer to GI.Return to ER if this occurs again.Assessed:Peripheral neuropathy (ICD-356.9) (YCH84-E20.9) Assessment: Instructions: I am not sure where [...] (Critical)Orders:Adult - Ofc Vst, EST, Level III [CPT-59232] Gastroenterology Consult [CPT-39331] Medications:GABAPENTIN 400 MG ORAL CAPSULE (GABAPENTIN) take one tablet by mouth three times daily as needed #90[Capsule] x 0 Route:ORAL Entered and Authorized by: Francesco Ritchie MD Method used: Electronically to [facility] (retail) [address] [place] [address] Note to Pharmacy: Route: ORAL; Indications: PERIPHERAL NEUROPATHY;BILATERAL CARPAL TUNNEL SYNDROME RxID: [id number] 1000 MG ORAL TABLET (LEVETIRACETAM) 1 pill po bid #60[Tablet] x 0 Route:ORAL Entered and Authorized by: Francesco Ritchie MD Method used: Electronically to [facility] (retail) [address] [place] [address] Note to Pharmacy: Route: ORAL; RxID: [id number] SUCCINATE 50 MG ORAL TABLET (SUMATRIPTAN SUCCINATE) take one tab po at the onset of headache. may repeat dose x one if no releif after two hours. #15[Tablet] x 0 Entered and Authorized by: Francesco Ritchie MD Method used: Electronically to [facility] (retail) [address] [place] [address] RxID: [id number] OMEPRAZOLE 20 MG ORAL TABLET DELAYED RELEASE (OMEPRAZOLE) One tablet by mouth every day #30[Tablet] x 2 Route:ORAL Entered and Authorized by: Francesco Ritchie MD Method used: Electronically to [facility] (retail) [address] [place] [address] Note to Pharmacy: Route: ORAL; RxID: [id number] DOXYCYCLINE MONOHYDRATE 100 MG ORAL TABLET (DOXYCYCLINE MONOHYDRATE) take one tablet by mouth twice daily x 5 days #10[Tablet] x 0 Route:ORAL Entered by: Demetria Elliott MA Authorized by: aMvis DIEGO Method used: Electronically to [facility] (retail) [address] [place] [address] RxID: [id number] signed by Francesco Ritchie MD on 09/22/2019 at 5:42 PM Name Value Range Interpretation Code Description Data [place] rce(s) Supporting Document(s) ID Date Data Source [id number] 09/10/2019 10:45:[address] [facility] Name Value Range Interpretation Code Description Data [place] rce(s) Supporting Document(s) BG FASTING 96 mg/dL 70-100 [facility] ID Date Data Source [id number] 09/10/2019 10:45:[address] [facility] Name Value Range Interpretation Code Description Data [place] rce(s) Supporting Document(s) HCT 37.4 % 36.0-47.0 [facility] HGB 12.1 g/dL 12.0-15.5 [facility] Health MCH 32.4 G/DL pg 32.0-36.5 N [facility] MCHC 30.2 PG % 27.0-33.0 [facility] PLATELETS 244 10 10*3/mm3 150-450 [facility] Family [facility] RBC 4.01 10 10*6/mm3 4.00-5.40 [facility] RDW 12.8 % 11.5-14.5 [facility] WBC TOTAL 4.9 4.0-10.0 [facility] Health ID Date Data Source [id number] 05/20/2019 11:42:[address] [facility] Measurements & CalculationsHeight: 61 inches (5 [...] you seen another healthcare provider? Yes - [facility] Have you seen a dentist? NoRate [...] during this visit, including review of any mqke-jbd-snqoija medications, herbal therapies, and/or supplements.Allergy ReviewAllergy List [...] Problems:Added: Phlebitis and thrombophlebitis of unspecified site (ZDF96-H37.9): right AC and right tibia Assessment: Instructions: May continue warm compresses 3-4 times daily as needed. Please try to keep extremities elevated. We have sent a prescription to your pharmacy today. Please take medication as prescribed. Please report any major side effects.Phlebitis and thrombophlebitis of unspecified site (AXR57-H56.9): right AC and right tibia Assessment: right foot and right forearmAssessed:Tobacco use (ICD-305.1) (QNV04-A04.0) Assessment: Instructions: Please continue to try to quit smoking.Health Screening (ICD-V70.0) (GVV64-Y72.9) Assessment: Instructions: Fasting labs ordered for you today. Please return prior to your next visit to have labs drawn. Please fast for 8-10 hours prior.Substance abuse (ICD-305.90) (AHC86-N00.10) Assessment: Instructions: Please try to avoid the [...] (Critical)BACTRIM (Critical)* SULFA ANTIBIOTICS (Critical)Orders:COMP METABOLIC PANEL [CPT-83723] CBC W/DIFF [CPT- 08659] HgBA1c [CPT-61867] LIPID PANEL [CPT-15243] TSH [CPT-53717] T-4 free [CPT- 55804] Vitamin D 250H Unspecified [CPT-68601] URINALYSIS [CPT-59324] VITAMIN B- 12 [CPT-54919] Folate (Folic Acid Serum) [CPT-37328] IRON [CPT-20688] Adult - Ofc Vst, EST, Level III [CPT-74750] Follow-Up Return to clinic: 2-3 weeks for follow up Additional Follow-Up: If symptoms worsen, please return to clinic or the ERClinical Visit Summary CompletedMedications:DOXYCYCLINE MONOHYDRATE 100 MG ORAL TABLET (DOXYCYCLINE MONOHYDRATE) take one tablet by mouth twice daily x 5 days #10[Tablet] x 0 Route:ORAL Entered and Authorized by: Mavis DIEGO Method used: Electronically to [id number] (retail) [address] [place] [address] Note to Pharmacy: Route: ORAL; Indications: PHLEBITIS AND THROMBOPHLEBITIS OF UNSPECIFIED SITE RxID: [id number] signed by Mavis DIEGO on 05/24/2019 at 11:37 PM ____ Name Value Range Interpretation Code Description Data [place] rce(s) Supporting Document(s) Procedure Social History Code Duration Value Status Description Data Source(s ) Smoking 03/01/2020 12:00:00 AM EST Current Smoker completed Curre nt Smoker eCW1 ([facility]) Smoking 03/01/2020 12:00:00 AM EST Current Smoker completed Curre nt Smoker eCW1 ([facility]) Smoking 03/01/2020 12:00:00 AM EST Current Smoker completed Curre nt Smoker eCW1 ([facility]) Smoking 02/18/2020 12:00:00 AM EST Current Smoker completed Curre nt Smoker eCW1 ([facility]) Smoking 12/24/2019 12:00:00 AM EDT Current Smoker completed Curre nt Smoker eCW1 ([facility]) Smoking 12/24/2019 12:00:00 AM EDT Current Smoker completed Curre nt Smoker eCW1 ([facility]) Smoking 12/24/2019 12:00:00 AM EDT Current Smoker completed Curre nt Smoker eCW1 ([facility]) Smoking 12/24/2019 12:00:00 AM EDT Current Smoker completed Curre nt Smoker eCW1 ([facility]) Smoking 12/24/2019 12:00:00 AM EDT Current Smoker completed Curre nt Smoker eCW1 ([facility]) Smoking 12/24/2019 12:00:00 AM EDT Current Smoker completed Curre nt Smoker eCW1 ([facility]) Smoking 12/24/2019 12:00:00 AM EDT Current Smoker completed Curre nt Smoker eCW1 ([facility]) Smoking 10/31/2019 12:00:00 AM EDT Current Smoker completed Curre nt Smoker eCW1 ([facility]) Smoking 10/31/2019 12:00:00 AM EDT Current Smoker completed Curre nt Smoker eCW1 ([facility]) Smoking 10/31/2019 12:00:00 AM EDT Current Smoker completed Curre nt Smoker eCW1 ([facility]) Vital Signs ID Date Data Source UNK Name Value Range Interpretation Code Description Data Source(s) Oxygen saturation in Arterial blood by Pulse oximetry 99 % 99 % eCW1 ([facility]) Respiratory rate 18 /min 18 /min eCW1 ([facility]) Heart rate 93 /min 93 /min eCW1 ([facility]) Body mass index (BMI) [Ratio] 35.27 kg/m2 35.27 kg/m2 eCW1 ([facility]) Body weight 180.6 [lb_av] 180.6 [lb_av] eCW1 ([facility]) Body height 60 [in_i] 60 [in_i] eCW1 ([facility]) Oxygen saturation in Arterial blood by Pulse oximetry 97 % 97 % eCW1 ([facility]) Respiratory rate 18 /min 18 /min eCW1 ([facility]) Heart rate 89 /min 89 /min eCW1 ([facility]) Body mass index (BMI) [Ratio] 36.48 kg/m2 36.48 kg/m2 eCW1 ([facility]) Body weight 186.8 [lb_av] 186.8 [lb_av] eCW1 ([facility]) Body height 60 [in_i] 60 [in_i] eCW1 ([facility]) Body height 60 [in_i] 60 [in_i] eCW1 ([facility]) Oxygen saturation in Arterial blood by Pulse oximetry 98 % 98 % eCW1 ([facility]) Respiratory rate 18 /min 18 /min eCW1 ([facility]) Heart rate 86 /min 86 /min eCW1 ([facility]) Body temperature 98.0 [degF] 98.0 [degF] eCW1 ( [facility]) Body mass index (BMI) [Ratio] 32.10 kg/m2 32.10 kg/m2 eCW1 ([facility]) Body weight 164.4 [lb_av] 164.4 [lb_av] eCW1 ([facility]) Oxygen saturation in Arterial blood by Pulse oximetry 99 % 99 % eCW1 ([facility]) Respiratory rate 18 /min 18 /min eCW1 ([facility]) Heart rate 100 /min 100 /min eCW1 ([facility]) Body temperature 98.7 [degF] 98.7 [degF] eCW1 ( [facility]) Body mass index (BMI) [Ratio] 30.70 kg/m2 30.70 kg/m2 eCW1 ([facility]) Body weight 157.2 [lb_av] 157.2 [lb_av] eCW1 ([facility]) Body height 60 [in_i] 60 [in_i] eCW1 ([facility]) ID Date Data Source [id number] 12/26/2019 01:56:00 PM EDT [facility] Name Value Range Interpretation Code Description Data Source(s) WEIGHT 72.3 kilos 72.3 kilos [facility] HEIGHT 152.4 centimeters 152.4 centimeters [facility] WEIGHT 75 kilos 75 kilos [facility] HEIGHT 152.4 centimeters 152.4 centimeters [facility] ID Date Data Source [id number] 12/10/2019 06:07:00 AM EDT [facility] Name Value Range Interpretation Code Description Data Source(s) WEIGHT 68 kilos 68 kilos [facility] HEIGHT 152.4 centimeters 152.4 centimeters [facility] WEIGHT 68.4 kilos 68.4 kilos [facility] HEIGHT 152.4 centimeters 152.4 centimeters [facility] ID Date Data Source [id number] 12/08/2019 01:43:00 PM EDT [facility] Name Value Range Interpretation Code Description Data Source(s) WEIGHT 75 kilos 75 kilos [facility] HEIGHT 152.4 centimeters 152.4 centimeters [facility] ID Date Data Source [id number] 12/08/2019 01:43:00 PM EDT [facility] Name Value Range Interpretation Code Description Data Source(s) WEIGHT 74 kilos 74 kilos [facility] HEIGHT 160.02 centimeters 160.02 centimeter [facility] Patient Treatment Plan of Care Planned Activity Planned Date Details Description Data Source (s) Clonidine Hydrochloride 0.2 MG Oral Tablet 12/24/2019 12:00:00 AM E DT eCW1 ([facility]) Clonidine Hydrochloride 0.2 MG Oral Tablet 12/24/2019 12:00:00 AM E DT eCW1 ([facility]) Clonidine Hydrochloride 0.2 MG Oral Tablet 12/24/2019 12:00:00 AM E DT eCW1 ([facility]) Clonidine Hydrochloride 0.2 MG Oral Tablet 12/24/2019 12:00:00 AM E DT eCW1 ([facility]) lisdexamfetamine dimesylate 50 MG Oral Capsule [Vyvans e] 11/04/2019 12:00:00 AM EDT eCW1 ([facility]) Clonazepam 0.5 MG Oral Tablet 11/04/2019 12:00:00 AM EDT eCW1 ([facility]) Citalopram 20 MG Oral Tablet [Celexa] 11/04/2019 12:00:00 AM EDT eCW1 ([facility]) Risperidone 3 MG Oral Tablet [Risperdal] 07/07/2019 12:00:00 AM EDT eCW1 ([facility]) Risperidone 3 MG Oral Tablet [Risperdal] 07/07/2019 12:00:00 AM EDT eCW1 ([facility]) Risperidone 2 MG Oral Tablet [Risperdal] 07/07/2019 12:00:00 AM EDT eCW1 ([facility]) Risperidone 2 MG Oral Tablet [Risperdal] 07/07/2019 12:00:00 AM EDT eCW1 ([facility]) Risperidone 3 MG Oral Tablet [Risperdal] 07/07/2019 12:00:00 AM EDT eCW1 ([facility])
--- OUTSIDE RECORDS SUMMARY | 2020-03-28 22:17 | CCD ---
Author Author [facility] Organization [facility] Address Unknown Phone Unavailable Care Team Providers Care Safety Clothing And Equipment Developer Name Role Phone Kori FLORES Unavailable Unavailable [...] Jeremie HOGAN MD Unavailable Unavailable JESICA, @ [facility] Unavailable Unavailable BEHZAD HOGAN MD Unavailable Unavailable Ching, Reginah W Kassidy MEDIA MONITOR-C Unavailable Unavailabl e Ching, Reginah W Kassidy MEDIA MONITOR-C Unavailable Unavailabl e Ching, Reginah W Kassidy MEDIA MONITOR-C Unavailable Unavailabl e Ching, Reginah W Kassidy MEDIA MONITOR-C Unavailable Unavailabl e Ching, Reginah W Kassidy MEDIA MONITOR-C Unavailable Unavailabl e Ching, Reginah W Kassidy MEDIA MONITOR-C Unavailable Unavailabl e Ching, Reginalias W Kassidy MEDIA MONITOR-C Unavailable Unavailabl e Ching, Reginah W Kassidy MEDIA MONITOR-C Unavailable Unavailabl e Ching, Reginah W Kassidy MEDIA MONITOR-C Unavailable Unavailabl e Ching, Reginah W Kassidy MEDIA MONITOR-C Unavailable Unavailabl e Ching, Reginah W Kassidy MEDIA MONITOR-C Unavailable Unavailabl e Ching, Reginah W Kassidy MEDIA MONITOR-C Unavailable Unavailabl e Ching, Reginah W Kassidy MEDIA MONITOR-C Unavailable Unavailabl e Ching, Reginah W Kassidy MEDIA MONITOR-C Unavailable Unavailabl e Ching, Reginah W Kassidy MEDIA MONITOR-C Unavailable Unavailabl e Ching, Reginah W Kassidy MEDIA MONITOR-C Unavailable Unavailabl e Ching, Elijah Yi MEDIA MONITOR-C Unavailable Unavailabl e Ching, Elijah Yi MEDIA MONITOR-C Unavailable Unavailabl e Ching, Elijah Yi MEDIA MONITOR-C Unavailable Unavailabl e Ching, Elijah Yi MEDIA MONITOR-C Unavailable Unavailabl e Ching, Elijah Yi MEDIA MONITOR-C Unavailable Unavailabl e Ching, Elijah Yi MEDIA MONITOR-C Unavailable Unavailabl e Ching, Elijah Yi MEDIA MONITOR-C Unavailable Unavailabl e Ching, Elijah Yi MEDIA MONITOR-C Unavailable Unavailabl e Ching, Elijah Yi MEDIA MONITOR-C Unavailable Unavailabl e Ching, Elijah Yi MEDIA MONITOR-C Unavailable Unavailabl e Ching, Elijah Yi MEDIA MONITOR-C Unavailable Unavailabl e Ching, Elijah Yi MEDIA MONITOR-C Unavailable Unavailabl e Ching, Elijah Yi MEDIA MONITOR-C Unavailable Unavailabl e Ching, Elijah Yi MEDIA MONITOR-C Unavailable Unavailabl e Ching, Elijah Yi MEDIA MONITOR-C Unavailable Unavailabl e Ching, Elijah Ballyce MEDIA MONITOR-C Unavailable Unavailabl e Lino Marie MD Unavailable Unavailable Lino Marie MD Unavailable Unavailable iLno Marie MD Unavailable Unavailable Lino Marie MD [...] BROWN, L JANE Unavailable Unavailable DESJARLAIS, KAROLYN LINUX VMWARE ADMINISTRATOR Unavailable Unavailable DESJARLAIS, KAROLYN LINUX VMWARE ADMINISTRATOR Unavailable Unavailable DESJARLAIS, KAROLYN LINUX VMWARE ADMINISTRATOR Unavailable Unavailable DESJARLAIS, KAROLYN LINUX VMWARE ADMINISTRATOR Unavailable Unavailable DESJARLAIS, KAROLYN LINUX VMWARE ADMINISTRATOR Unavailable Unavailable DESJARLAIS, KAROLYN LINUX VMWARE ADMINISTRATOR Unavailable Unavailable DESJARLAIS, KAROLYN LINUX VMWARE ADMINISTRATOR Unavailable Unavailable DESJARLAIS, KAROLYN LINUX VMWARE ADMINISTRATOR Unavailable Unavailable DESJARLAIS, KAROLYN LINUX VMWARE ADMINISTRATOR Unavailable Unavailable MAHESH RECINOS Unavailable Unavailable Elster, Mavis MEDIA MONITOR MEDIA MONITOR Unavailable Unavailable BLUM KATRIN Unavailable Unavailable Lester, A Mavis MEDIA MONITOR Unavailable Unavailable Lester, A Mavis MEDIA MONITOR Unavailable Unavailable Lester, A Mavis MEDIA MONITOR Unavailable Unavailable Lester, A Mavis MEDIA MONITOR Unavailable Unavailable Lester, A Mavis MEDIA MONITOR Unavailable Unavailable Lester, A Mavis MEDIA MONITOR Unavailable Unavailable Lester, A Mavis MEDIA MONITOR Unavailable Unavailable Lester, A Mavis MEDIA MONITOR Unavailable Unavailable Lester, A Mavis MEDIA MONITOR Unavailable Unavailable Lester, A Mavis MEDIA MONITOR Unavailable Unavailable Lester, A Mavis MEDIA MONITOR Unavailable Unavailable Lester, A Mavis MEDIA MONITOR Unavailable Unavailable Lester, A Mavis MEDIA MONITOR Unavailable Unavailable Lester, A Mavis MEDIA MONITOR Unavailable Unavailable Lester, A Mavis MEDIA MONITOR Unavailable Unavailable Lester, A Mavis MEDIA MONITOR Unavailable Unavailable Lester, A Mavis MEDIA MONITOR Unavailable Unavailable Lester, A Mavis MEDIA MONITOR Unavailable Unavailable Lester, A Mavis MEDIA MONITOR Unavailable Unavailable Lester, A Mavis MEDIA MONITOR Unavailable Unavailable Lester, A Mavis MEDIA MONITOR Unavailable Unavailable Lester, A Mavis MEDIA MONITOR Unavailable Unavailable Lester, A Mavis MEDIA MONITOR Unavailable Unavailable Lester, A Mavis MEDIA MONITOR Unavailable Unavailable Lester, A Mavis MEDIA MONITOR Unavailable Unavailable Lester, A Mavis MEDIA MONITOR Unavailable Unavailable Lester, A Mavis MEDIA MONITOR Unavailable Unavailable Lester, A Mavis MEDIA MONITOR Unavailable Unavailable Re-disclosure Warning The records that [...] is protected by Article 27-F of the [facility] Public Health law. If you continue you may have access to information: Regarding HIV / AIDS; Provided by facilities licensed or operated by the [facility] Office of Mental Health; or Provided by the [facility] Office for People With Developmental Disabilities. If such information is present, then the following [facility] mandated warning applies: This information has [...] law may result in a fine or nursing home sentence or both. A general authorization for the release of medical or other information is NOT sufficient authorization for further disc losure. Allergies and Adverse Reactions Type Description Substance Reaction Status Data Source(s ) Drug allergy Drug allergy AMOXICLIIN SWELLING, HIVES SV R [facility] Drug allergy olanzapine ol[facility]apine [facility] Drug allergy trimethoprim trimethoprim "BLISTERS IN MOUTH" [facility] Drug allergy sulfamethoxazole sulfamethoxazole "BLISTERS IN MOUTH" [facility] Drug allergy haloperidol haloperidol [facility] Drug allergy Sulfa (Sulfonamide Antibiotics) Sulfa (Sulfonami de Antibiotics) "BLISTERS IN MOUTH" [facility] Drug allergy Penicillins Penicillins SWELLING, HIVES SV R er [facility] Encounters Encounter Providers Location Date Indications Data Source(s ) Preadmit Attender: FAHAD MOONEY 04/15/2020 09:45:0 0 AM [facility] Outpatient Attender: JANE EDWARD 03/23/2020 02:00:00 PM [facility] Outpatient Attender: JANE EDWARD 03/17/2020 10:30:00 AM [facility] Outpatient Attender: JANE EDWARD 03/11/2020 04:00:00 PM [facility] Preadmit Attender: FAHAD MOONEY 03/11/2020 06:30:0 0 AM [facility] Outpatient Attender: KAROLYN VAN NP 03/09/2020 03: 40:00 PM [facility] Outpatient [facility] 03/03/2020 12:00:00 AM [facility] eCW ([facility]) Outpatient Attender: Shira Becerraferrer: Shira Youngblood PA-C EMERGENCY ROOM-LAB 03/01/2020 04:49:00 PM [facility] - 03/01/2020 04:49:00 PM [facility] Outpatient Attender: Shira Youngblood PA-C 03/01/2020 03:45 :00 PM [facility] Outpatient [facility] 03/01/2020 12:00:00 AM EST eCW1 ([facility]) Outpatient [facility] 03/01/2020 12:00:00 AM [place] [id number] ([facility]) Outpatient Attender: KAROLYN VAN NP 02/18/2020 02: 40:00 PM [facility] Outpatient Attender: Kassidy NAIRC 02/18/2020 10:00:0 0 AM EST [facility] Outpatient [facility] 02/18/2020 12:00:00 AM EST eCW1 ([facility]) Outpatient [facility] 02/10/2020 12:00:00 AM EST eCW1 ([facility]) Outpatient [facility] 02/03/2020 12:00:00 AM EST eCW1 ([facility]) Outpatient [facility] 01/14/2020 12:00:00 AM EST eCW1 ([facility]) Outpatient [facility] 01/06/2020 12:00:00 AM EST eCW1 ([facility]) Outpatient Attender: JOHNATHON PATEL 01/02/2020 10:06:00 A M EST [facility] Outpatient [facility] 01/02/2020 12:00:00 AM EST eCW1 ([facility]) Outpatient Attender: JANE EDWARD 01/01/2020 02:30:00 PM E [facility] Outpatient Attender: KAROLYN VAN NP 12/24/2019 11: 00:00 AM T [facility] Outpatient Attender: Shira Youngblood PA-C 12/24/2019 08:24 :00 AM EDT [facility] Outpatient [facility] 12/24/2019 12:00:00 AM EDT eCW1 ([facility]) Outpatient Attender: JANE EDWARD 12/23/2019 01:54:00 PM E [facility] Outpatient [facility] 12/23/2019 12:00:00 AM EDT eCW1 ([facility]) Outpatient Attender: Mavis PATEL 12/12/2019 11:3 5:02 AM EDT [facility] Outpatient Attender: JANE EDWARD 12/11/2019 03:00:00 PM E [facility] Outpatient [facility] 12/09/2019 12:00:00 AM EDT eCW1 ([facility]) Outpatient Attender: Mavis PATEL 12/05/2019 01:2 6:01 PM EDT [facility] Inpatient Attender: PRERNA RIOS MDAdmitter: PRERNA Hopson MD ER-3RD 12/05/2019 10:08:00 AM EDT - 12/10/2019 01:07:00 PM EDT [facility] Patient discharged. Outpatient Attender: NATHAN PAUL PA-C 12/05/2019 09:03:00 AM EDT [facility] Admission cancelled. Disregard status an d admitted date. Inpatient Attender: BEHZAD HOGAN MD Attender: BEHZAD HOGAN MDAttender: DIOGENES BUENO MDAttender: DIOGENES BUENO MDAdmitter: BEHZAD HOGAN MD ER-ICU 12/04/2019 11:06:00 PM EDT - 12/05/2019 10:03:00 AM EDT [facility] Patient discharged. Emergency Attender: GINGER Diazerrer: Melissa Youngblood PA-C EMERGENCY ROOM-ER 12/04/2019 04:21:00 PM EDT - 12/04/2019 08:40:00 PM EDT [facility] Patient discharged. Outpatient Attender: KAROLYN VAN NP 12/04/2019 03: 11:00 PM EDT [facility] Outpatient Attender: Mavis PATEL 11/29/2019 07:0 4:03 PM EDT [facility] Outpatient Attender: JOHNATHON PATEL 11/29/2019 07:04:01 P M EDT [facility] Outpatient Attender: Mavis PATEL 11/24/2019 12:2 9:00 PM EDT [facility] Emergency Attender: EVONNE HAGENConsultant: STAFF NON 11/07/2019 12:19:00 AM EDT - 11/07/2019 04:20:00 AM EDT [facility] Patient discharged. Outpatient [facility] 11/07/2019 12:00:00 AM EDT eCW1 ([facility]) Outpatient Attender: Mvais PATEL 11/04/2019 02:2 6:02 PM EDT [facility] Outpatient Attender: KAROLYN VAN NP 11/04/2019 11: 40:00 AM EDT [facility] Outpatient Attender: Mavis PATEL 11/02/2019 01:2 6:00 PM EDT [facility] Outpatient Attender: Mavis PATEL 10/31/2019 06:0 2:00 PM EDT [facility] Outpatient Attender: JOHNATHON DIEGO FP 10/31/2019 06:01:59 P M EDT [facility] Outpatient Attender: Mavis DIEGO FP 10/31/2019 06:0 1:03 PM EDT [facility] Outpatient Attender: JOHNATHON DIEGO FP 10/31/2019 06:01:01 P M EDT [facility] Outpatient Attender: Shira Youngblood PA-C 10/31/2019 09:06 :00 AM EDT [facility] Outpatient [facility] 10/31/2019 12:00:00 AM EDT eCW1 ([facility]) Outpatient Attender: JANE EDWARD 10/27/2019 11:00:00 AM E [facility] Outpatient Attender: KAROLYN VAN NP 10/21/2019 03: 20:00 PM EDT [facility] Emergency Attender: EVONNE HAGENConsultant: STAFF NON 10/09/2019 02:09:00 AM EDT - 10/09/2019 03:44:00 AM EDT [facility] Patient discharged. Outpatient Attender: KATRIN BLUM 10/06/2019 09:37:00 AM ED [facility] Outpatient Attender: Mavis DIEGO 09/25/2019 04:0 9:01 PM EDT [facility] Outpatient Attender: Mavis DIEGO 09/25/2019 04:0 7:59 PM EDT [facility] Outpatient Attender: JOHNATHON DIEGO FP 09/23/2019 10:31:00 A M EDT [facility] Outpatient Attender: JOHNATHON DIEGO FP 09/23/2019 10:30:01 A M EDT [facility] Outpatient Attender: JOHNATHON DIEGO FP 09/23/2019 12:02:09 A M EDT [facility] Outpatient Attender: JOHNATHON DIEGO FP 09/22/2019 05:44:02 P M EDT [facility] Outpatient Attender: Mavis DIEGO FP 09/22/2019 05:4 2:59 PM EDT [facility] Outpatient Attender: JOHNATHON PATEL 09/22/2019 02:38:00 P M EDT [facility] Outpatient Attender: Mavis DIEGO FP 09/22/2019 12:0 5:[address] [facility] Outpatient Attender: JOHNATHON DIEGO FP 09/22/2019 07:56:[address] [facility] Outpatient Attender: Mavis DIEGO FP 09/16/2019 05:0 8:02 AM EDT [facility] Outpatient Attender: Mavis TRUJILLOP FP 09/14/2019 05:1 9:[address] [facility] Outpatient Attender: JOHNATHON DIEGO FP 09/14/2019 05:19:00 P M EDT [facility] Outpatient Attender: Mavis TRUJILLOP FP 09/12/2019 11:5 3:00 AM EDT [facility] Outpatient Attender: Mavis DIEGO FP 09/10/2019 11:0 6:[address] [facility] Outpatient Attender: JOHNATHON DIEGO FP 09/10/2019 11:06:01 P M EDT [facility] Outpatient Referrer: Femi Marie MD 08/15/2019 05:44:00 A M EDT [facility] Outpatient Attender: Mavis DIEGO FP 08/06/2019 09:5 2:01 AM EDT [facility] Outpatient Attender: JOHNATHON DIEGO FP 08/05/2019 07:41:16 P M EDT [facility] Outpatient Attender: Mavis DIEGO FP 08/05/2019 09:2 3:03 AM EDT [facility] Outpatient Attender: JOHNATHON DIEGO FP 08/05/2019 09:23:01 A M EDT [facility] Outpatient Attender: KATRIN BLUM 08/04/2019 09:42:00 AM ED [facility] Outpatient Attender: Mavis DIEGO FP 08/01/2019 10:3 1:00 AM EDT [facility] Outpatient Attender: Mavis DIEGO FP 08/01/2019 10:2 7:02 AM EDT [facility] Outpatient Attender: JOHNATHON DIEGO FP 07/30/2019 11:31:01 A M EDT [facility] Outpatient Attender: KATRIN BLUM 07/07/2019 03:30:00 PM ED [facility] Outpatient Attender: Mavis DIEGO FP 07/04/2019 10:3 3:02 AM EDT [facility] Outpatient Attender: Mavis DIEGO FP 07/03/2019 01:5 2:01 PM EDT [facility] Outpatient Attender: Mavis DIEGO FP 07/02/2019 10:2 8:02 AM EDT [facility] Outpatient Attender: Mavis DIEGO FP 07/01/2019 09:5 7:00 AM EDT [facility] Outpatient Attender: JOHNATHON DIEGO FP 07/01/2019 08:57:00 A M EDT [facility] Outpatient Referrer: Femi Marie MD 07/01/2019 04:55:00 A M EDT [facility] Outpatient Attender: JOHNATHON DIEGO FP 06/30/2019 04:21:00 P M EDT [facility] Outpatient Attender: Mavis DIEGO FP 06/22/2019 06:0 1:59 PM EDT [facility] Outpatient Attender: Mavis DIEGO FP 06/17/2019 03:3 2:01 PM EDT [facility] Outpatient Attender: JOHNATHON DIEGO FP 05/27/2019 12:22:00 P M EDT [facility] Outpatient Attender: Mavis DIEGO FP 05/24/2019 11:3 7:01 PM EDT [facility] Outpatient Attender: JOHNATHON DIEGO FP 05/20/2019 12:36:01 P M EDT [facility] Outpatient Attender: JOHNATHON DIEGO FP 05/20/2019 11:56:[address] [facility] Outpatient Attender: JOHNATHON DIEGO FP 05/20/2019 11:42:01 A M EDT [facility] Outpatient Attender: JOHNATHON DIEGO FP 05/01/2019 03:31:[address] [facility] Outpatient Attender: Mavis DIEGO FP 04/28/2019 10:4 4:01 AM [facility] Outpatient Attender: KATRIN BLUM 04/21/2019 10:29:00 AM [facility] Outpatient Attender: JOHNATHON DIEGO FP 04/15/2019 12:44:01 P M [facility] Outpatient Attender: MAHESH RECINOS 02/24/2019 01:46:00 PM [facility] Outpatient Attender: AJNE EDWARD 02/21/2019 10:00:00 AM E [facility] Outpatient Attender: JOHNATHON PATEL 02/18/2019 09:01:04 P M EST [facility] Outpatient Attender: MAHESH RECINOS 02/10/2019 02:18:00 PM [facility] Outpatient Attender: MAHESH RECINOS 01/20/2019 04:26:00 PM [facility] Inpatient Attender: CHAO GUERRA MDAtten harjinder: PRERNA RIOS MDAdmitter: PRERNA RIOS MD ER-3RD 12/23/2018 04:01:00 PM EDT - 12/26/2018 01:22:00 PM EDT [facility] Patient discharged. Inpatient Attender: ONDINA RAMIREZ MDAdmitter: ONDINA RAMIREZ MD E R-ICU 12/19/2018 05:26:00 PM EDT - 12/23/2018 03:42:[facility] Emergency Attender: MATIAS MIKE EMERGENCY ROOM-ER 03:51:00 PM EDT - 12/19/2018 04:47:00 PM T [facility] Patient discharged. Medications Medication Brand Name Start [...] AREA(S) THREE TIMES A DAY SOLD: 01/02/2020 [facility] 8-2 mg 01/01/2020 12:00:00 AM EST film [address] TWO FILMS UNDER THE TONGUE EVERY DAY MAXIMUM DAILY DOSE = [address] TWO FILMS UNDER THE TONGUE EVERY DAY MAXIMUM DAILY DOSE = 2 FILMS SOLD: 01/02/2020 [facility] Clonidine Hydrochloride 0.2 MG Oral Tablet Clonidine H Cl 0.2 MG Clonidine HCl 0.2 MG 12/24/2019 12:00:00 AM EDT 1.0 {tablet} activ e Clonidine HCl 0.2 MG eCW1 ([facility]) Clonidine Hydrochloride 0.2 MG Oral Tablet Clonidine H Cl 0.2 MG Clonidine HCl 0.2 MG 12/24/2019 12:00:00 AM EDT 1.0 {tablet} activ e Clonidine HCl 0.2 MG eCW1 ([facility]) Clonidine Hydrochloride 0.2 MG Oral Tablet Clonidine H Cl 0.2 MG Clonidine HCl 0.2 MG 12/24/2019 12:00:00 AM EDT 1.0 {tablet} activ e Clonidine HCl 0.2 MG eCW1 ([facility]ena) Clonidine Hydrochloride 0.2 MG Oral Tablet Clonidine H Cl 0.2 MG Clonidine HCl 0.2 MG 12/24/2019 12:00:00 AM EDT 1.0 {tablet} suspe nded Clonidine HCl 0.2 MG eCW1 ([facility]) Clonidine Hydrochloride 0.2 MG Oral Tablet Clonidine H Cl 0.2 MG Clonidine HCl 0.2 MG 12/24/2019 12:00:00 AM EDT 1.0 {tablet} activ e Clonidine HCl 0.2 MG eCW1 ([facility]) Clonidine Hydrochloride 0.2 MG Oral Tablet Clonidine H Cl 0.2 MG Clonidine HCl 0.2 MG 12/24/2019 12:00:00 AM EDT 1.0 {tablet} activ e Clonidine HCl 0.2 MG eCW1 ([facility]) Clonidine Hydrochloride 0.2 MG Oral Tablet Clonidine H Cl 0.2 MG Clonidine HCl 0.2 MG 12/24/2019 12:00:00 AM EDT 1.0 {tablet} activ e Clonidine HCl 0.2 MG eCW1 ([facility]) Clonidine Hydrochloride 0.2 MG Oral Tablet Clonidine H Cl 0.2 MG Clonidine HCl 0.2 MG 12/24/2019 12:00:00 AM EDT 1.0 {tablet} suspe nded Clonidine HCl 0.2 MG eCW1 ([facility]) Clonidine Hydrochloride 0.2 MG Oral Tablet Clonidine H Cl 0.2 MG Clonidine HCl 0.2 MG 12/24/2019 12:00:00 AM EDT 1.0 {tablet} suspe nded Clonidine HCl 0.2 MG eCW1 ([facility]) Clonidine Hydrochloride 0.2 MG Oral Tablet Clonidine H Cl 0.2 MG Clonidine HCl 0.2 MG 12/24/2019 12:00:00 AM EDT 1.0 {tablet} activ e Clonidine HCl 0.2 MG eCW1 ([facility]) Clonidine Hydrochloride 0.2 MG Oral Tablet Clonidine H Cl 0.2 MG Clonidine HCl 0.2 MG 12/24/2019 12:00:00 AM EDT 1.0 {tablet} activ e Clonidine HCl 0.2 MG eCW1 ([facility]) 300 mg 12/13/2019 12:00:00 AM [...] {tablet_at_bedtime} active Clonazepam 0 .5 MG eCW1 ([facility]) Clonazepam 0.5 MG Oral Tablet Clonazepam 0.5 MG 11/04/2019 12:00:00 AM EDT 1.0 {tablet_at_bedtime} active Clonazepam 0 .5 MG eCW1 ([facility]) lisdexamfetamine dimesylate 50 MG Oral Capsule [Vyvans e] Vyvanse 50 MG Vyvanse 50 MG 11/04/2019 12:00:00 AM EDT 1.0 {capsule_in_the_morning} active Vyvanse 50 MG eCW1 ([facility]) Citalopram 20 MG Oral Tablet [Celexa] Celexa 20 MG Celexa 20 MG 11/04/2019 12:00:00 AM EDT 1.0 {tablet} active Ce elise 20 MG eCW1 ([facility]) Citalopram 20 MG Oral Tablet [Celexa] Celexa 20 MG Celexa 20 MG 11/04/2019 12:00:00 AM EDT 1.0 {tablet} active Ce elise 20 MG eCW1 ([facility]) lisdexamfetamine dimesylate 50 MG Oral Capsule [Vyvans e] Vyvanse 50 MG Vyvanse 50 MG 11/04/2019 12:00:00 AM EDT 1.0 {capsule_in_the_morning} active Vyvanse 50 MG eCW1 ([facility]) Citalopram 20 MG Oral Tablet [Celexa] Celexa 20 MG Celexa 20 MG 11/04/2019 12:00:00 AM EDT 1.0 {tablet} active Ce elise 20 MG eCW1 ([facility]) 75 mg 11/02/2019 12:00:00 AM EDT tablet [...] 1.0 {tablet} active Risperdal 3 MG eCW1 ([facility]) Risperidone 3 MG Oral Tablet [Risperdal] Risperdal 3 MG Risp erdal 3 MG 07/07/2019 12:00:00 AM EDT 1.0 {tablet} active Risperdal 3 MG eCW1 ([facility]) Risperidone 3 MG Oral Tablet [Risperdal] Risperdal 3 MG Risp erdal 3 MG 07/07/2019 12:00:00 AM EDT 1.0 {tablet} active Risperdal 3 MG eCW1 ([facility]) Risperidone 2 MG Oral Tablet [Risperdal] Risperdal 2 MG Risp erdal 2 MG 07/07/2019 12:00:00 AM EDT 1.0 {tablet} active Risperdal 2 MG eCW1 ([facility]) Risperidone 3 MG Oral Tablet [Risperdal] Risperdal 3 MG Risp erdal 3 MG 07/07/2019 12:00:00 AM EDT 1.0 {tablet} active Risperdal 3 MG eCW1 ([facility]) Risperidone 3 MG Oral Tablet [Risperdal] Risperdal 3 MG Risp erdal 3 MG 07/07/2019 12:00:00 AM EDT 1.0 {tablet} active Risperdal 3 MG eCW1 ([facility]) Risperidone 2 MG Oral Tablet [Risperdal] Risperdal 2 MG Risp erdal 2 MG 07/07/2019 12:00:00 AM EDT 1.0 {tablet} active Risperdal 2 MG eCW1 ([facility]) Risperidone 3 MG Oral Tablet [Risperdal] Risperdal 3 MG Risp erdal 3 MG 07/07/2019 12:00:00 AM EDT 1.0 {tablet} active Risperdal 3 MG eCW1 ([facility]) Risperidone 3 MG Oral Tablet [Risperdal] Risperdal 3 MG Risp erdal 3 MG 07/07/2019 12:00:00 AM EDT 1.0 {tablet} active Risperdal 3 MG eCW1 ([facility]) Risperidone 3 MG Oral Tablet [Risperdal] Risperdal 3 MG Risp erdal 3 MG 07/07/2019 12:00:00 AM EDT 1.0 {tablet} active Risperdal 3 MG eCW1 ([facility]) Risperidone 3 MG Oral Tablet [Risperdal] Risperdal 3 MG Risp erdal 3 MG 07/07/2019 12:00:00 AM EDT 1.0 {tablet} active Risperdal 3 MG eCW1 ([facility]) Risperidone 3 MG Oral Tablet [Risperdal] Risperdal 3 MG Risp erdal 3 MG 07/07/2019 12:00:00 AM EDT 1.0 {tablet} active Risperdal 3 MG eCW1 ([facility]) Risperidone 2 MG Oral Tablet [Risperdal] Risperdal 2 MG Risp erdal 2 MG 07/07/2019 12:00:00 AM EDT 1.0 {tablet} active Risperdal 2 MG eCW1 ([facility]) Risperidone 3 MG Oral Tablet [Risperdal] Risperdal 3 MG Risp erdal 3 MG 07/07/2019 12:00:00 AM EDT 1.0 {tablet} active Risperdal 3 MG eCW1 ([facility]) 8-2 mg 06/27/2019 12:00:00 AM EDT film [address] TWO FILMS UNDER THE TONGUE EVERY DAY MAXIMUM DAILY DOSE = 2 PLACE TWO FILMS UNDER THE TONGUE EVERY D AY MAXIMUM DAILY DOSE = 2 SOLD: 06/27/2019 [facility] 400 mg 06/23/2019 12:00:00 AM EDT [...] type / Coverage type Policy ID Covered libertarian ID Covered libertarian's relationship to dick Policy Dick Plan Information [facility] COMMUNITY PLAN [facility] [id number] SP [id number] [facility] [id number] S [id number] [facility] MEDICAID [id number] S [id number] [facility] MEDICAID [id number] S [id number] [facility] MEDICAID [id number] S [id number] [facility] O [id number] S [id number] Managed Care [facility] Community Plan P [id number] S [id number] Medicaid S [id number] S [id number] [facility] [id number] SP [id number] [facility] [id number] S [id number] [facility] COMMUNITY PLAN [facility] [id number] SP [id number] [facility] COMMUNITY PLAN [id number] [phone] MEDICAID [id number] SP [id number] Managed Care - [facility] Community Plan P [id number] S [id number] MEDICAID [id number] S [id number] MEDICAID [id number] S [id number] MEDICAID PROF FEES [id number] MEDICAID [id number] S [id number] [facility] [id number] S [id number] Medicaid S [id number] S [id number] Managed Care - Community Plan [facility] P [id number] S [id number] [id number] SP [id number] Medicaid P [id number] S [id number] SELF PAY ONLY [id number] SP [id number] [facility] COMMUNITY PLAN [facility] [id number] SP [id number] [facility] [id number] SP [id number] SELF PAY UNAVAILABLE SP UNAVAILA BLE Self Pay P UNAVAILABLE S UNAVAILA BLE Medicaid P [id number] S [id number] [facility] S UNAVAILA BLE Managed Care - [facility] P [id number] S [id number] Medicaid S UNAVAILABLE S UNAVAILA BLE Problems, Conditions, and Diagnoses Code Display Name Description Problem Type Effective Dates Data Source(s) K14.6 [id number] Tongue sore Problem 03/01/2020 12:00:[address] eCW1 ([facility]) F19.11 [id number] History of drug abuse Problem 03/01/2020 12: 00:00 AM EST eCW1 ([facility]) F19.10 [id number] Substance abuse Problem 12/24/2019 12:00:00 AM EDT eCW1 ([facility]) F50.81 [id number] Binge eating disorder Problem 11/04/2019 12: 00:00 AM EDT eCW1 ([facility]) K21.9 [id number] Gastroesophageal ref lux disease, esophagitis presence not specified Problem 10/31/2019 12:00:00 AM EDT eCW1 ([facility]) F17.200 74625314 Tobacco dependence Problem 10/31/2019 12:00: 00 AM EDT eCW1 ([facility]) E66.9 [id number] Obesity (BMI 30.0-34.9) Problem 0 10/31/2019 12:00:00 AM EDT eCW1 ([facility] jimena) Z68.30 748877919 BMI 30.0-30.9,adult Problem 10/31/2019 12:00 :00 AM EDT eCW1 ([facility]) R13.12 68407300 Oropharyngeal dysphagia Problem 10/31/2019 1 2:00:00 AM EDT eCW1 ([facility]) G56.03 [id number] Carpal tunnel syndrome, bilateral Pr oblem 10/31/2019 12:00:00 AM EDT eCW1 ([facility] jimena) K92.0 Hematemesis Hematemesis - cause unknown 020 05:42:44 PM EDT [facility] I80.9 Phlebitis and thrombophlebitis of unspec ified site Phlebitis and thrombophlebitis of unspecified site 05/20/2019 12:34:09 PM EDT [facility] right AC and right tibia F19.10 Other psychoactive substance abuse, unco mplicated OTHER PSYCHOACTIVE SUBSTANCE ABUSE, UNCOMPLICATED Diagnosis 03/17/2020 10:30:00 AM [facility] F90.0 Attention-deficit hyperactivity disorder , predominantly inattentive type ATTN-DEFCT HYPERACTIVITY DISORDER, PREDOM INATTENT Diagnosis 10:30:00 AM [facility] F11.21 Opioid dependence, in remission OPIOID DEPENDENC E, IN REMISSION Diagnosis 03/17/2020 10:30:00 AM [facility] F50.81 BINGE EATING DISORDER BINGE EATING DISORDER Diagnosis 03/17/2020 10:30:00 AM [facility] F43.12 Post-traumatic stress disorder, chronic POST-TRAUMATIC STRESS DISORDER, CHRONIC Diagnosis 03/17/2020 10:30:00 AM [facility] F25.9 Schizoaffective disorder, unspecified SC HIZOAFFECTIVE DISORDER, UNSPECIFIED Diagnosis 03/17/2020 10:30:00 AM [facility] Z13.29 Encounter for screening for other suspec keven endocrine disorder ENCOUNTER FOR SCREENING FOR OTH SUSPECTE Diagnosis 03/01/2020 04:49:00 PM [facility] Z82.61 Family history of arthritis FAMILY HISTORY OF ARTHRITI S Diagnosis 03/01/2020 03:45:00 PM [facility] Z13.220 Encounter for screening for lipoid disor ders ENCOUNTER FOR SCREENING FOR LIPOID DISORDERS Diagnosis 03/01/2020 03:45:00 PM [facility] Z82.69 Family history of other dise ases of the musculoskeletal system and connective tissue FAMILY HISTORY OF DISEASES OF THE MS SYS AND CONNE Diagnosis 03/01/2020 03:45:00 PM [facility] R50.9 Fever, unspecified FEVER, UNSPECIFIED Diagnosis 05/2020 03:45:00 PM [facility] 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, in r emission OTHER PSYCHOACTIVE SUBSTANCE ABUSE, IN REMISSION Diagnosis 03/01/2020 03:45:00 PM [facility] G56.03 CARPAL TUNNEL SYNDROME, BILATERAL UPPER LIMBS CARPAL TUNNEL SYNDROME, BILATERAL UPPER LIMBS Diagnosis 03/01/2020 03:45:00 PM [facility] james K21.9 Gastro-esophageal reflux disease without esophagitis GASTRO-ESOPHAGEAL REFLUX DISEASE WITHOUT ESOPHAGITIS Diagnosis 02/18/2020 10:00:00 AM [facility] F15.10 Other stimulant abuse, uncomplicated OTH ER STIMULANT ABUSE, UNCOMPLICATED Diagnosis 01/01/2020 02:30:00 PM [facility] F12.10 Cannabis abuse, uncomplicated CANNABIS ABUSE, UNCOMPLI CATED Diagnosis 12/24/2019 11:00:00 AM [facility] F11.10 Opioid abuse, uncomplicated OPIOID ABUSE, UNCOMPLICATE D Diagnosis 12/24/2019 11:00:00 AM [facility] R13.12 Dysphagia, oropharyngeal phase DYSPHAGIA, OROPHARYNGEA L PHASE Diagnosis 12/24/2019 08:24:00 AM [facility] M54.2 Cervicalgia CERVICALGIA Diagnosis 12/24/2019 08:24:00 AM [facility] T50.914D POISONING BY MULTIPLE UNSP DRUG/MEDS/BIO L SUBST, U POISONING BY MULTIPLE UNSP DRUG/MEDS/BIOL SUBST, U Diagnosis 12/24/2019 08:24:00 AM [facility] F19.20 Other psychoactive substance dependence, uncomplicated OTHER PSYCHOACTIVE SUBSTANCE DEPENDENCE, UNCOMPLIC Diagnosis 12/05/2019 10:08:00 AM [facility] R45.851 Suicidal ideations SUICIDAL IDEATIONS Diagnosis 10/2019 10:08:00 AM [facility] G40.909 Epilepsy, unspecified, not intractable, without status epilepticus EPILEPSY, UNSP, NOT INTRACTABLE, WITHOUT STATUS EP Diagnosis 10/2019 10:08:00 AM [facility] F32.2 Major depressive disorder, s rito episode, severe without psychotic features MAJOR DEPRESSV DISORD, SINGLE EPSD, SEV Diagnosis 12/05/2019 10:08:00 AM [facility] F25.1 Schizoaffective disorder, depressive typ e SCHIZOAFFECTIVE DISORDER, DEPRESSIVE TYPE Diagnosis 12/05/2019 10:08:00 AM [facility] Y92.[address] or not applicable UNSPECIFIED PLACE OR NOT APPLICABLE Diagnosis 12/04/2019 11:06:00 PM [facility] X58.XXXA Exposure to other specified factors, ini tial encounter EXPOSURE TO OTHER SPECIFIED FACTORS, INITIAL ENCOU Diagnosis 12/04/2019 11:06:00 P M [facility] T42.6X2A Poisoning by other antiepile ptic and sedative-hypnotic drugs, intentional self-harm, initial encounter POISN BY OTH ANTIEPLPTC AND SED-HYPNTC DRUGS, SLF- Diagnosis 12/04/2019 11:06:00 PM [facility] T40.902A Poisoning by unspecified psy chodysleptics [hallucinogens], intentional self-harm, initial encounter POISONING BY UNSP PSYCHODYSLEPTICS, SELF-HARM, INI Diagnosis 12/04/2019 11:06:00 PM [facility] K21.9 Gastro-esophageal reflux disease without esophagitis GASTRO-ESOPHAGEAL REFLUX DISEASE WITHOUT ESOPHAGIT Diagnosis 12/04/2019 11:06:00 PM [facility] F90.9 Attention-deficit hyperactivity disorder , unspecified type ATTENTION- DEFICIT HYPERACTIVITY DISORDER, UNSPECIF Diagnosis 12/04/2019 11:06:00 PM [facility] F43.10 Post-traumatic stress disorder, unspecif ied POST-TRAUMATIC STRESS DISORDER, UNSPECIFIED Diagnosis 12/04/2019 11:06:00 PM [facility] F43.23 Adjustment disorder with mixed anxiety a nd depressed mood ADJUSTMENT DISORDER WITH MIXED ANXIETY AND DEPRESS Diagnosis 12/04/2019 11:06:00 PM [facility] T42.4X2A Poisoning by benzodiazepines, intentiona l self-harm, initial encounter POISONING BY BENZODIAZEPINES, INTENTIONAL SELF-HARM, INIT Diagnosis 12/04/2019 11:06:00 PM [facility] Y93.89 Activity, other specified ACTIVITY, OTHER SPECIFIED Di agnosis 12/04/2019 04:21:00 PM [facility] Y92.[address] the place of o ccurrence of the external cause OT PLACES THE PLACE OF OCCURRENCE OF THE EXTER Diagnosis 09/2019 04:21:00 PM [facility] Z79.899 Other assisted (current) drug therapy O [facility] (CURRENT) DRUG THERAPY Diagnosis 12/04/2019 04:21:00 PM [facility] Z20.828 Contact with and (suspected) exposure to other viral communicable diseases CONTACT W AND EXPOSURE TO OTH VIRAL COMMUNICABLE D Diagnosis 12/04/2019 04:21:00 PM [facility] F17.210 Nicotine dependence, cigarettes, uncompl icated NICOTINE DEPENDENCE, CIGARETTES, UNCOMPLICATED Diagnosis 12/04/2019 04:21:00 PM [facility] T50.992A Poisoning by other drugs, me dicaments and biological substances, intentional self-harm, initial encounter POISONING BY OT DRUG/MEDS/BIOL SUBST, SELF-HARM, Diagnosis 12/04/2019 04:21:[address] [facility] R45.851 Suicidal ideations SUICIDAL IDEATIONS Diagnosis 09/2019 04:21:00 PM [facility] H62932 Nicotine dependence, cigarettes, uncompl icated Nicotine dependence, cigarettes, uncomplicated Diagnosis 11/07/2019 12:19:00 AM [facility] F1510 Other stimulant abuse, uncomplicated Other stimu lant abuse, uncomplicated Diagnosis 11/07/2019 12:19:00 AM [facility] B98098 Other psychoactive substance abuse with psychoactive substance-induced anxiety disorder Other psychoactive substance abuse with psychoactive substance- induced anxiety disorder Diagnosis 11/07/2019 12:19:00 AM [facility] R110 Nausea Nausea Diagnosis 11/07/2019 12:19:[address] [facility] Z76.89 Persons encountering health services in other specified circumstances PERSONS ENCOUNTERING HEALTH SERVICES IN OT CIRCUM Diagnosis 05/2019 09:06:00 AM [facility] Z71.9 Counseling, unspecified COUNSELING, UNSPECIFIED Diagno sis 10/31/2019 09:06:00 AM [facility] Z68.30 Body mass index (BMI) 30.0-30.9, adult B BOB MASS INDEX (BMI) 30.0-30.9, ADULT Diagnosis 10/31/2019 09:06:00 [facility] E66.9 Obesity, unspecified OBESITY, UNSPECIFIED Diagnosis 10/31/2019 09:06:00 AM [facility] R56.9 Unspecified convulsions UNSPECIFIED CONVULSIONS Diagno sis 10/31/2019 09:06:00 AM [facility] F909 Attention-deficit hyperactivity disorder , unspecified type Attention- deficit hyperactivity disorder, unspecified type Diagnosis 10/08 02:09:00 AM EDT [facility] J029 Acute pharyngitis, unspecified Acute pharyngitis, unsp ecified Diagnosis 10/09/2019 02:09:00 AM EDT [facility] F15.11 OTHER STIMULANT ABUSE, IN REMISSION OTHER STIMUL ANT ABUSE, IN REMISSION Diagnosis 02/24/2019 01:46:00 PM [facility] Z72.0 Tobacco use TOBACCO USE Diagnosis 02/21/2019 10:00:00 AM [facility] F12.11 CANNABIS ABUSE, IN REMISSION CANNABIS ABUSE, IN REMISS ION Diagnosis 02/10/2019 02:18:00 PM [facility] Surgeries/Procedures Procedure Description Date Indications Data Source(s) Psychological Tests, Neurobehavioral and Cognitive Status 12/06/2019 12:00:00 AM [facility] Introduction of Electrolytic and Water B alance Substance into Peripheral Vein, Percutaneous Approach 12/04/2019 12:00:00 AM [facility] Results ID Date Data Source [id number] 03/04/2020 12:09:00 PM [facility] Name Value Range Interpretation Code Description Data [place] rce(s) Supporting Document(s) FAZAL DIRECT Negative [facility] Performed at: RN - [facility] [place] [id number] Director: Elsa Garcia MD, Phone: [phone] ID Date Data Source [id number] 03/04/2020 12:05:00 PM EST [facility] Name Value Range Interpretation Code Description Data [place] rce(s) Supporting Document(s) FAZAL Direct Negative Negative [facility] ID Date Data Source [id number] 03/03/2020 08:50:00 AM EST [facility] ADD ON TEST Name Value Range Interpretation Code Description Data [place] rce(s) Supporting Document(s) RHEUMATOID FACTOR SCREEN NEGATIVE NEGATIVE [facility] ID Date Data Source [id number] 03/03/2020 08:37:00 AM [facility] ADD ON TEST Name Value Range Interpretation Code Description Data [place] rce(s) Supporting Document(s) FREE T4 1.0 ng/dL 0.76-1.46 [facility] ID Date Data Source [id number] 03/03/2020 08:37:00 AM EST [facility] ADD ON TEST Name Value Range Interpretation Code Description Data [place] rce(s) Supporting Document(s) TSH 0.422 uIU/mL 0.36-3.74 [facility] ID Date Data Source [id number] 03/03/2020 08:11:00 AM EST [facility] ADD ON TEST Name Value Range Interpretation Code Description Data [place] rce(s) Supporting Document(s) C REACTIVE PROTEIN 15.6 mg/L 0.0-3.0 [facility] ID Date Data Source [id number] 03/03/2020 08:11:00 AM EST [facility] ADD ON TEST Name Value Range Interpretation Code Description Data [place] rce(s) Supporting Document(s) GLUCOSE 85 mg/dL 74-106 [facility] BLOOD UREA NITROGEN 11 mg/dL 7-18 [facility] ital CREATININE 0.88 mg/dL 0.6-1.0 [facility] SODIUM 135 mmol/L 136-145 L [facility] POTASSIUM 4.1 mmol/L 3.5-5.1 [facility] CHLORIDE 99 mmol/L 98-107 [facility] CO2 26 mmol/L 21-32 [facility] CALCIUM 8.8 mg/dL 8.5-10.1 [facility] ANION GAP 10.0 mmol/L 5-12 [facility] GLOMERULAR FILTRATION RATE 74 mL/min [facility] GFR IS CALCULATED IN mL/min/1.73m2 LISANDRA L FUNCTION: >90MILDLY DECREASED: 60-89MILDY TO MODERATELY DECREASED: 45-59 MODERATELY TO SEVERELY DECREASED: 30-44SEVERELY DECREASED: 15-29RENAL FAILURE: <15 AST 32 U/L 15-37 [facility] ALT 32 U/L 12-78 [facility] ALKALINE PHOSPHATASE 65 U/L 46-116 [facility] pital TOTAL BILIRUBIN 0.2 mg/dL 0.2-1.0 [facility] TOTAL PROTEIN 6.9 g/dl 6.4-8.2 [facility] ALBUMIN 3.9 gm/dL 3.4-5.0 [facility] ID Date Data Source [id number] 03/01/2020 05:46:00 PM EST [facility] Name Value Range Interpretation Code Description Data [place] rce(s) Supporting Document(s) CHOLESTEROL 193 mg/dL 0-200 [facility] TRIGLYCERIDES 86 mg/dL 0-150 [facility] LDL CHOLESTEROL 111 mg/dL 0-100 H [facility] HDL CHOLESTEROL 65 mg/dL 40-60 H [facility] CHOL/HDL RATIO 3.0 0.0-5.0 [facility] ID Date Data Source [id number] 02/29/2020 10:40:00 AM EST [facility] Name Value Range Interpretation Code Description Data [place] rce(s) Supporting Document(s) SARS coronavirus 2 RNA [facility] This lab was ordered by [facility] and reported by [facility]. ID Date Data Source [id number] 12/10/2019 11:15:00 AM EDT [address] [id number] NAME: BRUNA LEE#: [id number] PHYSICIAN: PRERNA RIOS MD ADM. DATE: 12/05/19ACCOUNT #: [id number] DISCH. DATE:DISCHARGE SUMMARYIDENTIFICATION: A 34-year-old female with schizoaffective disorder,polysubstance dependence.CHIEF COMPLAINT: "I don't know why I am here."REASON FOR ADMISSION: Post- overdose.HISTORY OF PRESENT ILLNESS: The patient was interviewed in ICU after sheoverdosed. The patient was seen in [facility] for a regularconsultation, she could not [...] [place] last time in our service with [...] ABUSE: None.SOCIAL HISTORY: The patient is from [place], did not finish high school.She was in [...] The patient was discharged with the medications Xyigid67 mg p.o. daily, Neurontin 600 mg p.o. [...] be enrolled in outpatient chemical dependence in [place].MENTAL STATUS EXAMINATION: The patient is pleasant, cooperative. [...] Dictated: 12/10/2019 09:34:34Date Transcribed: 12/10/2019 10:15:05JV/PUSJob #: [id number]: 12/10/19 0934 Electronically SignedTRANS:12/10/19 1115 PRERNA RIOS MDTRANS BY:ADE SIGNED:12/10/19REPORT COPY TO: Name Value Range Interpretation Code Description Data [place] rce(s) Supporting Document(s) ID Date Data Source [id number] 12/10/2019 06:43:00 AM EDT [place], [place] [address]PATIENT NAME: BRUNA LEE#: [id number] PHYSICIAN: PRERNA RIOS [facility] #: [id number] ADM. DATE: 12/05/19PATIENT : 89 DISCH. DATE: [...] follow-upappointmentDischarge InformationDISCHARGE INFORMATION* Thank you for choosing [facility] and allowing us toserve you* Our Goal is to provide the highest quality of care.* This discharge information is to help you better understand your diagnosisand medication* Avoid taking qhyz-yqk-ahbadwk medicines unless approved by your physician.* Take your medications as prescribed. DO NOT stop any medications unlessapproved first* Weigh yourself daily. Report any gain of 5 lbs in a week* 24 Hour Crisis HOTLINE available: Call [facility] at [phone]* Chem. Dependency: [facility] [place] ([phone]) and [place] ([phone]) anytime Sunday thru Sunday 8 to 10am. [place] ([phone]) anytimeSunday thru Sunday 8 to 10am. [place] ([phone]) Sunday or Sunday from 8to 10am (Bring $30 to [facility]) SMOKIN G CESSATION* Smoking is dangerous to your health. It delays the healing process, andworks against your medications. Not smoking will improve your health* Our hospital participates with the Opt-to-Quit program. You will be contactedafter discharge by the [facility] Smoker's Quitline for support with tobaccocessation. You have the option once contacted to refuse this service.* You can also go online to www.devsisters. Free nicotine replacementsare available Attention* You should [...] rce(s) Supporting Document(s) ID Date Data Source [id number] 12/10/2019 02:15:00 AM EDT [address] [id number] NAME: BRUNA LEE Joe.RJayro#: [id number] PHYSICIAN: PRERNA RIOS MD ADM. DATE: 12/05/19PROGRESS NOTE DATE: 12/09/19 RM.#: [id number] #: [id number] NOTEIDENTIFICATION: A 34-year-old female with mood disorder [...] Dictated: 12/09/2019 10:52:52Date Transcribed: 12/10/2019 01:15:28JV/RAVJob #: [id number]: 12/09/19 1052 Electronically SignedTRANS:12/10/195 PRERNA RIOS MDTRANS BY:ADE SIGNED:12/10/19REPORT COPY TO: Name Value Range Interpretation Code Description Data [place] rce(s) Supporting Document(s) ID Date Data Source [id number] 12/08/2019 11:58:00 AM EDT [facility] Name Value Range Interpretation Code Description Data [place] rce(s) Supporting Document(s) URINE COLOR Yellow N [facility] UAPR Clear [facility] UGLU Negative NEGATIVE [facility] URINE BILIRUBIN Negative NEGATIVE [facility] UKET Negative NEGATIVE [facility] USG 1.015 1.010-1.025 [facility] UBLO Negative NEGATIVE N [facility] UpH 8.0 5.0-8.0 [facility] UPRO Negative Negative [facility] UUB 0.2 mg/dL 0.2-1.0 [facility] UNIT Negative Negative [facility] ULEU Negative Negative [facility] ID Date Data Source [id number] 12/09/2019 04:57:00 AM EDT [facility] [address] [id number] NAME: BRUNA LEE#: [id number] PHYSICIAN: PRERNA RIOS MD ADM. DATE: 12/05/19PROGRESS NOTE DATE: 12/08/19 .#: [id number] #: [id number] NOTEIDENTIFICATION: A 34-year-old female with mood disorder, [...] Dictated: 12/08/2019 10:30:51Date Transcribed: 12/09/2019 03:57:49JV/Basia #: [id number]: 12/08/19 1030 Electronically SignedTRANS:12/09/19 0457 PRERNA RIOS MDTRANS BY:IATDATE SIGNED:12/09/19REPORT COPY TO: Name Value Range Interpretation Code Description Data [place] rce(s) Supporting Document(s) ID Date Data Source [id number] 12/06/2019 11:02:00 PM EDT [place], [place] [address]PATIENT NAME: BRUNA LEE#: [id number] PHYSICIAN: PRERNA RIOS MD ADM. DATE: 12/05/19ACCOUNT #: [id number] .#: [id number] ASSESSMENTIDENTIFICATION: A 34-year-old female with schizoaffective disorder andpolysubstance dependence.CHIEF COMPLAINT: "I don't know why I am here."REASON FOR ADMISSION: Post-overdose.HISTORY OF PRESENT ILLNESS: According to the records and our interview, thepatient was brought to our service after being in ICU and the medical floorfor an overdose. The patient [facility] and she passed out in consultation. [...] 2 weeks ago, that she was in [place] inpatient service for 5 days forthat.The patient [...] into detail.SOCIAL HISTORY: The patient is from [place]. Did not finish high school.She is in [...] Dictated: 12/06/2019 12:22:47Date Transcribed: 12/06/2019 22:02:14JV/GBJob #: [id number]: 12/06/19 1222 Electronically Signed TRANS:12/06/19 2302 PRERNA RIOS MDTRANS BY:IATDAFUNMI SIGNED:12/07/19REPORT COPY TO: Name Value Range Interpretation Code Description Data [place] rce(s) Supporting Document(s) ID Date Data Source [id number] 12/05/2019 02:12:00 AM EDT [facility] Name Value Range Interpretation Code Description Data [place] rce(s) Supporting Document(s) CKI 109 U/L 17-150 N [facility] ID Date Data Source [id number] 12/05/2019 04:49:00 PM EDT [facility] [address] HEALTH HISTORY AND PHYSICALPATIENT NAME: BRUNA LEE MR#: [id number] PHYSICIAN: PRERNA RIOS MDAUTHOR: Ximena HERNANDEZ, Diogenes [...] [facility]Past Medical/Surgical HistoryPast Medical/Surgical HistoryMedical ProblemsAcute [...] rce(s) Supporting Document(s) ID Date Data Source [id number] 12/05/2019 09:48:00 AM EDT [address] [id number] SUMMARYPATIENT NAME: BRUNA LEE MR#: [id number] PHYSICIAN: BEHZAD HOGAN MDAUTHOR: Diogenes Bueno MD DATE: 12/04/19 RM#: [id number] DATE: 12/05/19 : 87Summary of HospitalizationReason for AdmissionOverdose on xanax, gabapentin, bath saltsHospital Vbzfqt60 yo F who was admitted for an [...] and [facility]Diagnoses (Current Visit)Problem List1. Drug overdose2. [...] taking the following medications:Gabapentin* (Neurontin*) 400 MG [id number] MILLIGRAM Orally DAILYContinue taking these medications:LEVETIRACETAM (LEVETIRACETA) 1,000 MG TABLET1,000 MILLIGRAM Orally TWICE DAILYQty = 60Amitriptyline HCl (Amitriptyline HCl) 100 MG [id number] MILLIGRAM Orally DAILYSUCRALFATE (Carafate*) 1 GM TABLET1 GM Orally TWICE DAILYcloniDINE* (CLONIDINE*) 0.1 MG TABLET0.1 MILLIGRAM Orally TWICE DAILYOmeprazole Magnesium (Prilosec Otc) 20 MG TABLET.DR20 MILLIGRAM Orally DAILYrispERIdone (RISPERDAL*) 0.5 MG TABLET2 MILLIGRAM Orally TWICE DAILYATOMOXETINE HCL (Strattera) 18 MG [id number] MILLIGRAM Orally DAILYBUPRENORPHINE HCL/NALOXONE HCL (Suboxone 8 MG-2 MG Sl Film) 1 EACH FILM1 MILLIGRAM SublinguallySUMATRIPTAN SUCCINATE (Imitrex*) 50 MG [id number] MILLIGRAM Orally DAILY NEEDED as needed for HeadacheOxcarbazepine (Trileptal) 150 MG [id number] MILLIGRAM Orally TWICE DAILYDischarge Activity: As tolerated, No liftingDischarge diet: RegularFollow-upFollow up with the mental health doctor [facility]Time spent by provider to complete discharge > 30 minutesDATE SIGNED: 12/05/19 Electronically SignedTIME SIGNED: 1912 DIOGENES BUENO MD Name Value Range Interpretation Code Description Data [place] rce(s) Supporting Document(s) ID Date Data Source [id number] 12/05/2019 09:46:00 AM EDT [address] [place], [place] [address]VHEUFRR NAME: BRUNA LEE Joe Orellana#: [id number] PHYSICIAN: BEHZAD HOGAN [facility] #: [id number] ADM. DATE: 12/04/19PATIENT : 89 DISCH. DATE: [50}DISCHARGE SUMMARYMedical Discharge PlanNicotine Replacement TherapyPrescribed at discharge Rx not offered at DCReason not offered [facility] Care InstructionsDischarge Activity: As tolerated, No liftingDischarge diet: RegularProblem ListMedical ProblemsAcute respiratory failure (Acute)Drug abuse (Chronic)Drug overdose (Acute)SchizophreniaSeizure disorder (Chronic, 12/20/18)Follow Up CareFollow Up:Follow up with the mental health doctor [facility]Priority ItemsUrgent/Important items that need to be addressed at primary care follow-upappointmentPLEASE AVOID GABAPENTIN/XANAX/BATH SALTS IN THE FUTUREDischarge InformationDISCHARGE INFORMATION* Thank you for choosing [facility] and allowing us toserve you* Our Goal [...] Hour Crisis HOTLINE available: Call [employer] at [phone] SMOKING CESSATION* Smoking is dangerous to your health. It delays the healing process, andworks against your medications. Not smoking will improve your health* Our hospital participates with the Opt-to-Quit program. You will be contactedafter discharge by the [facility] Smoker's Quitline for support with tobaccocessation. You have the option once contacted to refuse this service.* You can also go online to www.devsisters. Free nicotine replacementsare available Attent ion* You [...] rce(s) Supporting Document(s) ID Date Data Source [id number] 12/06/2019 02:37:00 AM EDT [facility] [address] [address]PLGBVJA NAME: BRUNA LEE#: [id number] PHYSICIAN: BEHZAD HOGAN MD ADM. DATE: 12/04/19CONSULTING PHYSICIAN: PRERNA RIOS MD .#: ICUACCOUNT #: [id number] REPORTIDENTIFICATION: A 34-year-old female with mood disorder. This is a shortconsultation for a 34-year-old female who was unresponsive. The patient is inICU and at this point it is not clear the reason for an overdose.According to the records, the patient has a history of seizures, GERD, carpaltunnel, adjustment disorder, anxiety, depression, PTSD, and ADHD. Accordingto the records, the patient went to [facility] for an evaluation. Shehad an overdose. Was unconscious and at that point, according to the records,she stated that she injected bath salts in the morning, that is when shebecame unconscious and it is not clear who called the EMS that brought her [facility]. The patient has poor response to stimulants. [...] the lastthing she remembers is being at [place] so she is oriented to person, not [...] Dictated: 12/05/2019 09:24:19Date Transcribed: 12/06/2019 01:37:33JV/GBJob #: [id number]: 12/05/19 0924 Electronically SignedTRANS:12/06/19 0237 PRERNA RIOS MDTRANS BY:ADE SIGNED:12/09/19REPORT COPY TO: Name Value Range Interpretation Code Description Data [place] rce(s) Supporting Document(s) ID Date Data Source [id number] 12/05/2019 08:01:00 AM EDT [facility] Patient: COME, BRUNA Observation Repor t - [facility]Visit[facility] [id number] [place] [address] [phone], FRegistration Date/Time: 12/04/2019 15:46 Weight:68.4 kg (E). [...] Marie Euceda 12/04/2019 20:43) AddBRUNA Conteh VisitID: [id number] Date: 12/04/2019 12/05/2019 7:59Spoke to [facility] nurse Deborah who wanted to come to [place] to see patient. Advised Deborah that the [facility] was [facility]. (Electronically signed by Allyssa Paredes R.N. - 12/05/2019 7:59) Name Value Range Interpretation Code Description Data [place] rce(s) Supporting Document(s) ID Date Data Source [id number] 12/05/2019 07:34:00 AM EDT [facility] Name Value Range Interpretation Code Description Data [place] rce(s) Supporting Document(s) GLU 76 mg/dL 70-110 N [facility] Patients taking Sulfasalazine may have f alsely depressedGlucose levels. Patients taking Sulfapyridine may havefalsely elevated Glucose levels. Patients should be drawnfor Glucose before the initial administration of eitherdrug. BUN 7 mg/dL 7-23 [facility] CRE 0.500 mg/dL 0.500-1.300 [facility] GFR > 60 mL/min [facility] CHLORIDE 117 mmol/L 99-110 H [facility] NA 146 mmol/L 136-147 [facility] POTASSIUM 3.5 mmol/L 3.5-5.1 [facility] TCO2 22 mmol/L 20-33 [facility] ANION GAP 10.5 10.0-20.0 [facility] CA 7.8 mg/dL 8.3-10.7 L [facility] ALKALINE PHOS 59 U/L 45-117 [facility] TP 5.7 g/dL 6.0-7.8 L [facility] ALB 2.6 g/dL 3.5-5.0 [facility] ESRD Dialysis patient Albumin reference range: 2.9-4.4 g/dL GL 3.1 g/dL 2.3-3.5 [facility] A/G 0.8 1.0-2.5 [facility] T. BILIRUBIN 0.3 mg/dL 0.1-1.1 [facility] The Dimension [place] Total Bilirubin is n ot recommended forpatients undergoing treatment with eltrombopag (Promacta)due to the potential for falsely elevated results. ALTI 15 U/L 6-54 [facility] Patients taking Sulfasalazine and/or Sul fapyridine may havefalsely depressed ALT levels. Patients should be drawn forALT before the initial administration of either drug. AST 26 U/L 6-38 [facility] Patients taking Sulfasalazine and/or Sul fapyridine may havefalsely depressed AST levels. Patients should be drawn forAST before the initial administration of either drug. ID Date Data Source [id number] 12/05/2019 07:08:00 AM EDT [facility] Name Value Range Interpretation Code Description Data [place] rce(s) Supporting Document(s) WBC 5.38 x10E3/uL 4.0-10.5 [facility] RBC 3.55 x10E6/uL 4.20-5.40 [facility] Hemoglobin 10.6 g/dL 12.0-16.0 [facility] Hematocrit 32.9 % 37.0-47.0 [facility] MCV 92.7 fL 81.0-99.0 [facility] MCH 29.9 pg 27.0-31.0 [facility] MCHC 32.2 g/dL 32.7-35.6 [facility] RDW 13.1 % 11.5-14.0 [facility] Platelet count 251 x10E3/uL 150-450 [facility] ital MPV 10.8 fl 6.9-9.5 [facility] Neutrophils 43.4 % 34-64 [facility] Lymphocytes 44.4 % 25-45 [facility] Monocytes 8.6 % 1.7-10.6 [facility] Eosinophils 2.6 % 0.4-7.0 [facility] Basophils 0.6 % 0.1-2.0 [facility] Imm. Gran. 0.4 % 0.1-2.0 [facility] Abs. Neutro. 2.34 x10E3/uL 1.2-7.6 N [facility] Abs. Lymph. 2.39 x10E3/uL 1.0-3.5 [facility] Abs. Pratt. 0.46 x10E3/uL 0.1-1.0 N [facility] Abs. Eosin. 0.14 x10E3/uL 0.1-0.7 [facility]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 Report - Physicians/Mid Levels [facility] Emergency Department [address] [place] [address] Phone #: ext- [phone] 11/07/2019 00:19 Patient: [...] rce(s) Supporting Document(s) ID Date Data Source [id number] 11/07/2019 03:20:00 AM EDT [facility] Name Value Range Interpretation Code Description Data [place] rce(s) Supporting Document(s) HCG SERUM QUAL NEGATIVE NORMAL: NEGATIVE [facility] HCG SERUM QL REENTER NEGATIVE NORMAL: NEGATIVE [facility] { KIT LOT # [id number] ){ KIT EXP DATE 12-08-20 ){ PROCEDURAL CONTROL VALID ) ID Date Data Source [id number] 11/07/2019 03:15:00 AM EDT [facility] Name Value Range Interpretation Code Description Data [place] rce(s) Supporting Document(s) Creatine kinase [Enzymatic activity/volume] in Serum or Plasma 3 13 U/L 30 - 170 H [facility] ID Date Data Source [id number] 11/07/2019 03:14:00 AM EDT [facility] Name Value Range Interpretation Code Description Data [place] rce(s) Supporting Document(s) COMPREHENSIVE METABOLIC PANEL [facility] COMPREHENSIVE METABOLIC PANEL Sodium [Moles/volume] in Serum or Plasma 140 mEq/L 134 - 153 [facility] Potassium [Moles/volume] in Serum or Plasma 3.8 mEq/L 3.6 - 5.0 [facility] Chloride [Moles/volume] in Serum or Plasma 100 mEq/L 98 - 107 [facility] Carbon dioxide, total [Moles/volume] in Serum or Plasma 30 MEQ/L 22 - 30 [facility] Glucose [Mass/volume] in Serum or Plasma 98 MG/DL 65 - 110 [facility] BUN 14 MG[facility]DL 7 - [facility] Creat[facility] [Mass/volume] in Serum or Plasma 0.7 MG/DL 0.7 - 1.5 [facility] BUN/CREAT 20 8 - 27 [facility] Protein [Mass/volume] in Serum or Plasma 5.9 G/DL 6.3 - 8.2 L [facility] Albumin [Mass/volume] in Serum or Plasma 3.6 G/DL 3.9 - 5.0 L [facility] Globulin [Mass/volume] in Serum by calculation 2.3 GM/DL 2.4 - 3.2 L [facility] A/G RATIO 1.6 0.8 - 2.0 [facility] Calcium [Mass/volume] in Serum or Plasma 9.2 MG/DL 8.4 - 10.2 [facility] Bilirubin.total [Mass/volume] in Serum or Plasma <0.7 MG/DL 0.2 - 1.3 [facility] Alkaline phosphatase [Enzymatic activity/volume] in Serum or Plasma 62 U/L 38 - 126 [facility] Aspartate aminotransferase [Enzymatic activity/volume] in Serum or Plasma 302 U/L 5 - 40 H [facility] Alanine aminotransferase [Enzymatic activity/volume] in Seru m or Plasma 125 U/L 7 - 56 H [facility] Anion gap 3 in Serum or Plasma 10.0 mmol/L 8.0 - 16.0 [facility] AGE 34 yrs [facility] al NON-AA GFR >60 mL/min [facility] ital AFR AMER GFR >60 mL/min [facility] Ho spital Male GFR In terprentation [...] >32 mL/min Normal ID Date Data Source [id number] 11/07/2019 02:27:00 AM EDT [facility] Name Value Range Interpretation Code Description Data [place] rce(s) Supporting Document(s) CBC W/AUTOMATED DIFF [facility] COMPLETE BLOOD COUNT Leukocytes [#/volume] in Blood by Automated count 8.3 10^3/uL 4.2 - 1 1.0 [facility] Erythrocytes [#/volume] in Blood by Automated count 3.87 10^6/uL 4. 20 - 5.40 L [facility] Hemoglobin [Mass/volume] in Blood 11.6 g/dL 12.0 - 16.0 L [facility] Hematocrit [Volume Fraction] of Blood by Automated count 36.0 % 3 7.0 - 47.0 L [facility] Erythrocyte mean corpuscular volume [Entitic volume] by Auto mated count 93.0 fL 81.0 - 101 [facility] Erythrocyte mean corpuscular hemoglobin [Entitic mass] by Automated count 30.0 pg 27.0 - 34.0 [facility] Erythrocyte mean corpuscular hemoglobin concentration [Mass/volume] by Automated count 32.2 g/dL 31.0 - 36.0 [facility] Erythrocyte distribution width [Ratio] by Automated count 13.3 % 11.5 - 14.5 [facility] Platelets [#/volume] in Blood by Automated count 271 10^3/uL 150 - 45 0 [facility] Platelet mean volume [Entitic volume] in Blood by Automated count 9.5 fL 7.4 - 10.4 [facility] Neutrophils/100 leukocytes in Blood by Automated count 82.6 % 37. 0 - 80.0 H [facility] Lymphocytes/100 leukocytes in Blood by Manual count 14.3 % 25.0 - 40.0 L [facility] Monocytes/100 leukocytes in Blood by Automated count 1.6 % 3.0 - 8.0 L [facility] Eosinophils/100 leukocytes in Blood by Automated count 0.8 % 0.0 - 7.0 [facility] Basophils/100 leukocytes in Blood by Automated count 0.2 % 0.0 - 2.5 [facility] %IG 0.5 % 0.0 - 0.0 [facility] %NRBC 0.0 % 0.0 - 0.0 [facility] al Neutrophils [#/volume] in Blood by Automated count 6.85 10^3/uL 2.00 - 6.90 [facility] Lymphocytes [#/volume] in Blood by Automated count 1.19 10^3/uL 0.60 - 3.40 [facility] Monocytes [#/volume] in Blood by Automated count 0.13 10^3/uL 0.00 - 0.90 [facility] Eosinophils [#/volume] in Blood by Automated count 0.07 10^3/uL 0.00 - 0.70 [facility] Basophils [#/volume] in Blood by Automated count 0.02 10^3/uL 0.00 - 0.20 [facility] #IG 0.04 10^3/uL 0.00 - 0.10 [facility] H ospital #NRBC 0.00 10^3/uL 0.00 - 0.00 [facility] ospital MANUAL DIFF NOT INDICATED [facility] RBC MORPH NOT INDICATED [facility] Ho spital ID Date Data Source [id number] 11/07/2019 03:14:00 AM EDT [facility] Name Value Range Interpretation Code Description Data [place] rce(s) Supporting Document(s) DRUG SCREEN URINE [facility] URINE DRUG SCREEN Amphetamine [Presence] in Urine by Screen method PRESUMP POS LISANDRA L: NEGATIVE [facility] BARBITURATES NEGATIVE NORMAL: NEGATIVE [facility] BENZO NEGATIVE NORMAL: NEGATIVE [facility] COCAINE NEGATIVE NORMAL: NEGATIVE [facility] Tetrahydrocannabinol [Presence] in Urine NEGATIVE NORMAL: NEGATIVE [facility] OPIATES NEGATIVE NORMAL: NEGATIVE [facility] Phencyclidine [Presence] in Urine by Screen method NEGATIVE NOR MAL: NEGATIVE [facility] \\BLDo\\URINE DRUG SCR EEN INTERPRETATION\\BLDx\\ THE CUTOFFF LEVELS FOR DETECTION ARE FOLLOWS: AMPHETAMINES 1000 ng/ml BARBITUARATES 200 ng/ml BENZODIAZEPINES 100 ng/ml THC 50 ng/ml PHENCYCLIDINE 25 ng/ml OPIATES 300 ng/ml COCAINE 300 ng/ml ALL POSITIVES ARE CONSIDERED PRESUMPTIVE POSITIVE CONFIRMATION WILL BE PERFORMED AT PHYSICIAN REQUEST. ID Date Data Source [id number] 11/07/2019 02:27:00 AM EDT [facility] Name Value Range Interpretation Code Description Data [place] rce(s) Supporting Document(s) [facility] COL[facility] yellow NORMAL: Yellow [facility] ospital CLARITY clear NORMAL: Clear [facility] Ho spital Specific gravity of Urine by Test strip 1.020 1.001 - 1.030 [facility] pH 6 5 - 9 [facility] al Glucose [Mass/volume] in Urine by Test strip NORM NORMAL: Negat [facility] Bilirubin.total [Presence] in Urine by Test strip NEG NORMAL: Negative [facility] Ketones [Presence] in Urine by Test strip NEG NORMAL: Negative [facility] Protein [Mass/volume] in Urine by Test strip NEG NORMAL: Negat [facility] Nitrite [Presence] in Urine by Test strip NEG NORMAL: Negative [facility] BLOOD NEG NORMAL: Negative [facility] Leukocyte esterase [Presence] in Urine by Test strip NEG LISANDRA L: Negative [facility] Urobilinogen [Mass/volume] in Urine by Test strip 1 less kenna n 1.0 mg/dL [facility] MICROSCOPIC Not Indicate [facility] H ospital ID Date Data Source [id number] 10/30/2019 10:27:00 AM EDT [facility] Name Value Range Interpretation Code Description Data [place] rce(s) Supporting Document(s) BG FASTING 132 mg/dL 70-[address] [facility] TSH 0.526 microintl units/mL 0.358-3.740 [facility] ID Date Data Source [id number] 10/30/2019 10:27:00 AM EDT [facility] Name Value Range Interpretation Code Description Data [place] rce(s) Supporting Document(s) HCT 37.6 % 36.0-47.0 N [facility] HGB 11.8 g/dL 12.0-15.5 L [facility] MCH 31.4 G/DL pg 32.0-36.5 L [facility] MCHC 29.9 PG % 27.0-33.0 N [facility] PLATELETS 209 10 10*3/mm3 150-450 N [facility] RBC 3.94 10 10*6/mm3 4.00-5.40 L [facility] RDW 12.6 % 11.5-14.5 N [facility] WBC TOTAL 4.5 4.0-10.0 N [facility] ID Date Data Source [id number] 10/13/2019 03:25:00 PM EDT [facility] Name Value Range Interpretation Code Description Data [place] rce(s) Supporting Document(s) HCT 40.7 % 36.0-47.0 N [facility] HGB 13.3 g/dL 12.0-15.5 [facility] MCH 32.7 G/DL pg 32.0-36.5 N [facility] MCHC 30.4 PG % 27.0-33.0 [facility] PLATELETS 288 10 10*3/mm3 150-450 N [facility] RBC 4.37 10 10*6/mm3 4.00-5.40 [facility] RDW 12.4 % 11.5-14.5 [facility] WBC TOTAL 8.7 4.0-10.0 [facility] ID Date Data Source [id number] 10/09/2019 02:09:00 AM EDT [facility] 1 OrderSheet [facility] Emergency Department [address] [place] [address] Phone #: ext- [phone] 10/09/2019 02:08 Patient: [...] rce(s) Supporting Document(s) ID Date Data Source [id number] 10/09/2019 02:09:00 AM EDT [facility] 1 Medication Reconciliation Report [facility] Emergency Department [address] [place] [address] Phone #: ext- [phone] 10/09/2019 02:08 Patient: [...] rce(s) Supporting Document(s) ID Date Data Source [id number] 10/09/2019 02:09:00 AM EDT [facility] 1 Medication Administration Record [facility] Emergency Department [address] [place] [address] Phone #: ext- [phone] 10/09/2019 02:08 Patient: BRUNA LEE Sex: F : 1985 Age: 34yWeight: 81.1 kgHeight/Length: 60 inBMI: 34.9ALLERGIES: Penicillins, Sulfa Antibiotics Date/Time Medication Administered Medication OrderedGiven IBUPROFEN [PO] Ibuprofen 800 mg PO X1 dose: 67212:39 10/09/2019 Dose: 800 mg Tablets PO mg (NOW x1)Meme Maldonado R.N. Name Value Range Interpretation Code Description Data [place] rce(s) Supporting Document(s) ID Date Data Source [id number] 10/09/2019 02:09:00 AM EDT [facility] 1 General Instructions [facility] [address] [place] [address] Phone #: ext [phone] 10/09/2019 02:08 Patient: BRUNA LEE Sex: F [...] INFORMATIONViral Pharyngitis (Sore Throat) 2 General Instructions [facility] [address] [place] [address] Phone #: ext- [phone] 10/09/2019 02:08 Patient: [...] glass of warm water. 3 General Instructions [facility] [address] [place] [address] Phone #: ext- [phone] 10/09/2019 02:08 Patient: [...] breathing or noisy breathing 4 General Instructions [facility] [address] [place] [address] Phone #: ext- [phone] 10/09/2019 02:08 Patient: BRUNA LEE Sex: F : 1985 Age: 34y Muffled voice New rash Other symptoms are getting worse [phone] [employer]. [address] [place] [address]. All rights reserved. This information is not intended as asubstitute for professional medical care. Always follow your healthcare professional's instructions. You have been given the following additional information: Pharyngitis, Viral(Electronically signed by Evonne Hagen M.D. 10/09/2019 03:51) Name Value Range Interpretation Code Description Data [place] rce(s) Supporting Document(s) ID Date Data Source [id number] 10/09/2019 02:09:00 AM EDT [facility] 1 Clinical Report - Nurses [facility] [address] [place] [address] Phone #: ext- [phone] 10/09/2019 02:08 Patient: BRUNA LEE Sex: F : 1985 Age: 34yTRIAGEHistorian: EMS and patient.Triage time: 02:08 10/09/2019.Chief Complaint: SORE THROAT.This started just prior to arrival. The patient has had a hoarse voice.Treatment JEWEL GRINDER:Took Tylenol. (arthritis kind).EMS Treatment JEWEL GRINDER:See EMS report.SEPSIS SCREEN: SIRS Screen: heart rate greater than 90. Sepsis Screen negative. No suspected orconfirmed signs of infection present. --02:14 10/09/19 Meme Maldonado R.N.02:10/09/19. BP: 130/86. MAP: 100. HR: 105. RR: 18. O2 saturation: 100%. Temp: 98.5 F. Pain levelnow: 12/05. --02:14 10/09/19 Meme Maldonado R.N.Treatment JEWEL GRINDER:(Seen at [facility] for this issue within the last [...] Maldonado R.N.AllergiesPenicillins.(hives) 2 Clinical Report - Nurses [facility] [address] [place] [address] Phone #: ext- [phone] 10/09/2019 02:08 [id number] : 1985 Age: 34y Sulfa [...] Dental decay. 3 Clinical Report - Nurses [facility] [address] [place] [address] Phone #: ext- [phone] 10/09/2019 02:08 Patient: [...] Patient verbalized understanding. Written instructions provided in [place]. The patient was discharged by the physician. [...] rce(s) Supporting Document(s) ID Date Data Source [id number] 10/09/2019 02:09:00 AM EDT [facility] 1 Clinical Report - Physicians/Mid Levels [facility] [address] [place] [address] Phone #: ext- [phone] 10/09/2019 02:08 Patient: [...] (per EMS, pt is well known to [facility] ER for multiple ER visits for multiple somatic and psychiatric complaints; tonight, she complains of sore throat, hoarse voice, bugs on her skin, etc.; pt has therapist in [place]). Similar symptoms previously. Patient has had similar [...] Medications: 2 Clinical Report - Physicians/Mid Levels [facility] [address] [place] [address] Phone #: ext- [phone] 10/09/2019 02:08 Patient: [...] PROCEDURAL CONTROL VALID ){ KIT LOT # [id number] ){ KIT EXP DATE [id number] )The 3 Clinical Report - Physicians/Mid Levels [facility] [address] [place] [address] Phone #: ext- [phone] 10/09/2019 02:08 Patient: [...] was requested by: Evonne Hagen Reference #: [id number] Others' Prescriptions Patient Name: Bruna LeeBirth Date: 1985 Address: [address] [place] [id number]: Female Rx Written Rx Dispensed Drug Quantity [...] 56 28 MoehJose J hopson MD [facility] 05/01/2019 05/01/2019 [...] #15 4 Clinical Report - Physicians/Mid Levels [facility] [address] [place] [address] Phone #: [phone]- [phone] 10/09/2019 02:08 Patient: BRUNA LEE Sex: F [...] unknown*. 5 Clinical Report - Physicians/Mid Levels [facility] [address] [place] [address] Phone #: ext- [phone] 10/09/2019 02:08 Patient: [...] Name Value Range Interpretation Code Description Data [facility] Supporting Document(s) ID Date Data Source [id number] 10/09/2019 03:02:00 AM EDT [facility] Name Value Range Interpretation Code Description Data [place] rce(s) Supporting Document(s) RAPID STREP NEGATIVE NORMAL: NEGATIVE [facility] RAPID STREP REENTER NEGATIVE NORMAL: NEGATIVE [facility] { PROCEDURAL CONTROL VALID ){ KIT LOT # [id number] ){ KIT EXP DATE 665154 )The Strep A 2 assay utilizes isothermal [...] basis for treatment. ID Date Data Source [id number] 09/22/2019 02:34:28 PM EDT [facility] Measurements & CalculationsHeight: 61 inches [...] (ER) or urgent care clinic? Yes - [facility] Have you seen another healthcare provider? Yes - [facility] Have you seen a dentist? NoIntake performed [...] this is different. Sees [facility] for her mental health issues (schizophrenia) and feels that this is going well.HPI performed by: Francesco Ritchie MD, September 22, 2019 2:52 PMTransitions of Care InboundProblem ReviewProblem List was reviewed and/or updated during this visit.Medication Reconciliation & ReviewMedication List was reviewed and/or updated during this visit, including review of any uuqt-lng-qtollju medications, herbal therapies, and/or supplements.Allergy ReviewAllergy List [...] Plan Problems:Added: Hematemesis - cause unknown (ICD-578.0) (LBC57-B13.0) Assessment: Instructions: Currently asymptomatic but worrisome enough to warrant further workup.Avoid NSAIDs and refer to GI.Return to ER if this occurs again.Assessed:Peripheral neuropathy (ICD-356.9) (POC87-O30.9) Assessment: Instructions: I am not sure where [...] (Critical)Orders:Adult - Ofc Vst, EST, Level III [CPT-37462] Gastroenterology Consult [CPT-77512] Medications:GABAPENTIN 400 MG ORAL CAPSULE (GABAPENTIN) take one tablet by mouth three times daily as needed #90[Capsule] x 0 Route:ORAL Entered and Authorized by: Francesco Ritchie MD Method used: Electronically to [facility] (retail) [address] [place] [address] Note to Pharmacy: Route: ORAL; Indications: PERIPHERAL NEUROPATHY;BILATERAL CARPAL TUNNEL SYNDROME RxID: [id number] 1000 MG ORAL TABLET (LEVETIRACETAM) 1 pill po bid #60[Tablet] x 0 Route:ORAL Entered and Authorized by: Francesco Ritchie MD Method used: Electronically to [facility] (retail) [address] [place] [address] Note to Pharmacy: Route: ORAL; RxID: [id number] SUCCINATE 50 MG ORAL TABLET (SUMATRIPTAN SUCCINATE) take one tab po at the onset of headache. may repeat dose x one if no releif after two hours. #15[Tablet] x 0 Entered and Authorized by: Francesco Ritchie MD Method used: Electronically to [facility] (retail) [address] [place] [address] RxID: [id number] OMEPRAZOLE 20 MG ORAL TABLET DELAYED RELEASE (OMEPRAZOLE) One tablet by mouth every day #30[Tablet] x 2 Route:ORAL Entered and Authorized by: Francesco Ritchie MD Method used: Electronically to [facility] (retail) [address] [place] [address] Note to Pharmacy: Route: ORAL; RxID: [id number] DOXYCYCLINE MONOHYDRATE 100 MG ORAL TABLET (DOXYCYCLINE MONOHYDRATE) take one tablet by mouth twice daily x 5 days #10[Tablet] x 0 Route:ORAL Entered by: Demetria Elliott MA Authorized by: Mavis DIEGO Method used: Electronically to [facility] (retail) [address] [place] [address] RxID: [id number] signed by Francesco Ritchie MD on 09/22/2019 at 5:42 PM Name Value Range Interpretation Code Description Data [place] rce(s) Supporting Document(s) ID Date Data Source [id number] 09/10/2019 10:45:00 PM EDT [facility] Name Value Range Interpretation Code Description Data [place] rce(s) Supporting Document(s) BG FASTING 96 mg/dL 70-[address] [facility] y Health ID Date Data Source [id number] 09/10/2019 10:45:00 PM EDT [facility] Name Value Range Interpretation Code Description Data [place] rce(s) Supporting Document(s) HCT 37.4 % 36.0-47.0 [facility] HGB 12.1 g/dL 12.0-15.5 [facility] MCH 32.4 G/DL pg 32.0-36.5 [facility] MCHC 30.2 PG % 27.0-33.0 [facility] PLATELETS 244 10 10*3/mm3 150-450 [facility] RBC 4.01 10 10*6/mm3 4.00-5.40 [facility] RDW 12.8 % 11.5-14.5 [facility] WBC TOTAL 4.9 4.0-10.0 [facility] ID Date Data Source [id number] 05/20/2019 11:42:55 AM EDT [facility] Measurements & CalculationsHeight: 61 inches [...] you seen another healthcare provider? Yes - [facility] Have you seen a dentist? NoRate [...] during this visit, including review of any lrkj-npv-zoaudfb medications, herbal therapies, and/or supplements.Allergy ReviewAllergy List [...] Problems:Added: Phlebitis and thrombophlebitis of unspecified site (NLG70-R80.9): right AC and right tibia Assessment: Instructions: May continue warm compresses 3-4 times daily as needed. Please try to keep extremities elevated. We have sent a prescription to your pharmacy today. Please take medication as prescribed. Please report any major side effects.Phlebitis and thrombophlebitis of unspecified site (AGD87-R66.9): right AC and right tibia Assessment: right foot and right forearmAssessed:Tobacco use (ICD-305.1) (RMX63-D15.0) Assessment: Instructions: Please continue to try to quit smoking.Health Screening (ICD-V70.0) (ROE52-E27.9) Assessment: Instructions: Fasting labs ordered for you today. Please return prior to your next visit to have labs drawn. Please fast for 8-10 hours prior.Substance abuse (ICD-305.90) (UFO80-H37.10) Assessment: Instructions: Please try to avoid the [...] (Critical)BACTRIM (Critical)* SULFA ANTIBIOTICS (Critical)Orders:COMP METABOLIC PANEL [CPT-57567] CBC W/DIFF [CPT- 40773] HgBA1c [CPT-03713] LIPID PANEL [CPT-70690] TSH [CPT-72061] T-4 free [CPT- 70535] Vitamin D 250H Unspecified [CPT-67501] URINALYSIS [CPT-77158] VITAMIN B- 12 [CPT-66400] Folate (Folic Acid Serum) [CPT-21167] IRON [CPT-64313] Adult - Ofc Vst, EST, Level III [CPT-48976] Follow-Up Return to clinic: 2-3 weeks for follow up Additional Follow-Up: If symptoms worsen, please return to clinic or the ERClinical Visit Summary CompletedMedications:DOXYCYCLINE MONOHYDRATE 100 MG ORAL TABLET (DOXYCYCLINE MONOHYDRATE) take one tablet by mouth twice daily x 5 days #10[Tablet] x 0 Route:ORAL Entered and Authorized by: Mavis DIEGO Method used: Electronically to [facility] (retail) [address] [place] [address] Note to Pharmacy: Route: ORAL; Indications: PHLEBITIS AND THROMBOPHLEBITIS OF UNSPECIFIED SITE RxID: [id number] signed by Mavis DIEGO on 05/24/2019 at 11:37 PM ____ Name Value Range Interpretation Code Description Data [place] rce(s) Supporting Document(s) Procedure Social History Code Duration Value Status Description Data Source(s ) Smoking 03/01/2020 12:00:00 AM EST Current Smoker completed Curre nt Smoker eCW1 ([facility]) Smoking 03/01/2020 12:00:00 AM EST Current Smoker completed Curre nt Smoker eCW1 ([facility]) Smoking 03/01/2020 12:00:00 AM EST Current Smoker completed Curre nt Smoker eCW1 ([facility]) Smoking 02/18/2020 12:00:00 AM EST Current Smoker completed Curre nt Smoker eCW1 ([facility]) Smoking 12/24/2019 12:00:00 AM EDT Current Smoker completed Curre nt Smoker eCW1 ([facility]) Smoking 12/24/2019 12:00:00 AM EDT Current Smoker completed Curre nt Smoker eCW1 ([facility]) Smoking 12/24/2019 12:00:00 AM EDT Current Smoker completed Curre nt Smoker eCW1 ([facility]) Smoking 12/24/2019 12:00:00 AM EDT Current Smoker completed Curre nt Smoker eCW1 ([facility]) Smoking 12/24/2019 12:00:00 AM EDT Current Smoker completed Curre nt Smoker eCW1 ([facility]) Smoking 12/24/2019 12:00:00 AM EDT Current Smoker completed Curre nt Smoker eCW1 ([facility]) Smoking 12/24/2019 12:00:00 AM EDT Current Smoker completed Curre nt Smoker eCW1 ([facility]) Smoking 10/31/2019 12:00:00 AM EDT Current Smoker completed Curre nt Smoker eCW1 ([facility]) Smoking 10/31/2019 12:00:00 AM EDT Current Smoker completed Curre nt Smoker eCW1 ([facility]) Smoking 10/31/2019 12:00:00 AM EDT Current Smoker completed Curre nt Smoker eCW1 ([facility]) Vital Signs ID Date Data Source UNK Name Value Range Interpretation Code Description Data Source(s) Oxygen saturation in Arterial blood by Pulse oximetry 99 % 99 % eCW1 ([facility]) Respiratory rate 18 /min 18 /min eCW1 ([facility]) Heart rate 93 /min 93 /min eCW1 ([facility]) Body mass index (BMI) [Ratio] 35.27 kg/m2 35.27 kg/m2 eCW1 ([facility]) Body weight 180.6 [lb_av] 180.6 [lb_av] eCW1 ([facility]) Body height 60 [in_i] 60 [in_i] eCW1 ([facility]) Oxygen saturation in Arterial blood by Pulse oximetry 97 % 97 % eCW1 ([facility]) Respiratory rate 18 /min 18 /min eCW1 ([facility]) Heart rate 89 /min 89 /min eCW1 ([facility]) Body mass index (BMI) [Ratio] 36.48 kg/m2 36.48 kg/m2 eCW1 ([facility]) Body weight 186.8 [lb_av] 186.8 [lb_av] eCW1 ([facility]) Body height 60 [in_i] 60 [in_i] eCW1 ([facility]) Body height 60 [in_i] 60 [in_i] eCW1 ([facility]) Oxygen saturation in Arterial blood by Pulse oximetry 98 % 98 % eCW1 ([facility]) Respiratory rate 18 /min 18 /min eCW1 ([facility]) Heart rate 86 /min 86 /min eCW1 ([facility]) Body temperature 98.0 [degF] 98.0 [degF] eCW1 ( [facility]) Body mass index (BMI) [Ratio] 32.10 kg/m2 32.10 kg/m2 eCW1 ([facility]) Body weight 164.4 [lb_av] 164.4 [lb_av] eCW1 ([facility]) Oxygen saturation in Arterial blood by Pulse oximetry 99 % 99 % eCW1 ([facility]) Respiratory rate 18 /min 18 /min eCW1 ([facility]) Heart rate 100 /min 100 /min eCW1 ([facility]) Body temperature 98.7 [degF] 98.7 [degF] eCW1 ( [facility]) Body mass index (BMI) [Ratio] 30.70 kg/m2 30.70 kg/m2 eCW1 ([facility]) Body weight 157.2 [lb_av] 157.2 [lb_av] eCW1 ([facility]) Body height 60 [in_i] 60 [in_i] eCW1 ([facility]) ID Date Data Source [id number] 12/26/2019 01:56:00 PM EDT [facility] Name Value Range Interpretation Code Description Data Source(s) WEIGHT 72.3 kilos 72.3 kilos [facility] HEIGHT 152.4 centimeters 152.4 centimeters [facility] WEIGHT 75 kilos 75 kilos [facility] HEIGHT 152.4 centimeters 152.4 centimeters [facility] ID Date Data Source [id number] 12/10/2019 06:07:00 AM EDT [facility] Name Value Range Interpretation Code Description Data Source(s) WEIGHT 68 kilos 68 kilos [facility] HEIGHT 152.4 centimeters 152.4 centimeters [facility] WEIGHT 68.4 kilos 68.4 kilos [facility] HEIGHT 152.4 centimeters 152.4 centimeters [facility] ID Date Data Source [id number] 12/08/2019 01:43:00 PM EDT [facility] Name Value Range Interpretation Code Description Data Source(s) WEIGHT 75 kilos 75 kilos [facility] HEIGHT 152.4 centimeters 152.4 centimeters [facility] ID Date Data Source [id number] 12/08/2019 01:43:00 PM EDT [facility] Name Value Range Interpretation Code Description Data Source(s) WEIGHT 74 kilos 74 kilos [facility] HEIGHT 160.02 centimeters 160.02 centimeter [facility] Patient Treatment Plan of Care Planned Activity Planned Date Details Description Data Source (s) Clonidine Hydrochloride 0.2 MG Oral Tablet 12/24/2019 12:00:00 AM E DT eCW1 ([facility]) Clonidine Hydrochloride 0.2 MG Oral Tablet 12/24/2019 12:00:00 AM E DT eCW1 ([facility]) Clonidine Hydrochloride 0.2 MG Oral Tablet 12/24/2019 12:00:00 AM E DT eCW1 ([facility]) Clonidine Hydrochloride 0.2 MG Oral Tablet 12/24/2019 12:00:00 AM E DT eCW1 ([facility]) lisdexamfetamine dimesylate 50 MG Oral Capsule [Vyvans e] 11/04/2019 12:00:00 AM EDT eCW1 ([facility]) Clonazepam 0.5 MG Oral Tablet 11/04/2019 12:00:00 AM EDT eCW1 ([facility]) Citalopram 20 MG Oral Tablet [Celexa] 11/04/2019 12:00:00 AM EDT eCW1 ([facility]) Risperidone 3 MG Oral Tablet [Risperdal] 07/07/2019 12:00:00 AM EDT eCW1 ([facility]) Risperidone 3 MG Oral Tablet [Risperdal] 07/07/2019 12:00:00 AM EDT eCW1 ([facility]) Risperidone 2 MG Oral Tablet [Risperdal] 07/07/2019 12:00:00 AM EDT eCW1 ([facility]) Risperidone 2 MG Oral Tablet [Risperdal] 07/07/2019 12:00:00 AM EDT eCW1 ([facility]) Risperidone 3 MG Oral Tablet [Risperdal] 07/07/2019 12:00:00 AM EDT eCW1 ([facility])
[2020-03-28] MEDS ORDERED: PERI0.126 PO (23:48)
[2020-03-28 23:57] VITALS: BP 129/88
== END 2020-03-29 | disposition home or self-care (01) ==
LOC: M ED 21:04
DX: K14.5 Plicated tongue (principal); F25.9 Schizoaffective disorder, unspecified; R56.9 Unspecified convulsions; F17.200 Nicotine dependence, unspecified, uncomplicated; Z79.899 Other long term (current) drug therapy; Z88.0 Allergy status to penicillin; Z88.6 Allergy status to analgesic agent; Z88.1 Allergy status to other antibiotic agents

== ENCOUNTER 2020-03-29 17:57 | Emergency (ER) | payer OTHER ==
[~2020-03-29] VITALS: Ht 157.5 cm; Wt 79.5 kg
[~2020-03-29 17:57] MED LIST changes: +PERI0.126 PO
[2020-03-29 17:58] VITALS: BP 146/101
--- OUTSIDE RECORDS SUMMARY | 2020-03-29 18:10 | CCD ---
Author Author [facility] Organization [facility] Address Unknown Phone Unavailable Care Team Providers Care Sports Equipment Racker Name Role Phone Kori FLORES Unavailable Unavailable [...] Unavailable Unavailable LESTER, MATIAS PA Unavailable Unavailable LSETER, MATIAS PA Unavailable Unavailable LESTER, MATIAS PA [...] Jeremie HOGAN MD Unavailable Unavailable JESICA, @ [facility] Unavailable Unavailable BEHZAD HOGAN MD Unavailable Unavailable Ching, Reginah W Kassidy S[employer]IOR OR[employer] [address] SQL DEVELOPER-C Unavailable Unavailabl e Ching, Reginah W Kassidy SENIOR ORACLE [address] SQL DEVELOPER-C Unavailable Unavailabl e Ching, Reginah W Kassidy SENIOR ORACLE [address] SQL DEVELOPER-C Unavailable Unavailabl e Ching, Reginah W Kassidy SENIOR ORACLE [address] SQL DEVELOPER-C Unavailable Unavailabl e Ching, Reginah W Kassidy SENIOR ORACLE [address] SQL DEVELOPER-C Unavailable Unavailabl e Ching, Reginah W Kassidy SENIOR ORACLE [address] SQL DEVELOPER-C Unavailable Unavailabl e Ching, Reginalisa W Kassidy SENIOR ORACLE [address] SQL DEVELOPER-C Unavailable Unavailabl e Ching, Reginah W Kassidy SENIOR ORACLE [address] SQL DEVELOPER-C Unavailable Unavailabl e Ching, Reginah W Kassidy SENIOR ORACLE [address] SQL DEVELOPER-C Unavailable Unavailabl e Ching, Reginah W Kassidy SENIOR ORACLE [address] SQL DEVELOPER-C Unavailable Unavailabl e Ching, Reginah W Kassidy SENIOR ORACLE [address] SQL DEVELOPER-C Unavailable Unavailabl e Ching, Reginah W Kassidy SENIOR ORACLE [address] SQL DEVELOPER-C Unavailable Unavailabl e Ching, Reginah W Kassidy SENIOR ORACLE [address] SQL DEVELOPER-C Unavailable Unavailabl e Ching, Reginah W Kassidy SENIOR ORACLE [address] SQL DEVELOPER-C Unavailable Unavailabl e Ching, Reginah W Kassidy SENIOR ORACLE [address] SQL DEVELOPER-C Unavailable Unavailabl e Ching, Reginah W Kassidy SENIOR ORACLE [address] SQL DEVELOPER-C Unavailable Unavailabl e Ching, Elijah Yi SENIOR ORACLE [address] SQL DEVELOPER-C Unavailable Unavailabl e Ching, Elijah Yi SENIOR ORACLE [address] SQL DEVELOPER-C Unavailable Unavailabl e Ching, Elijah Yi SENIOR ORACLE [address] SQL DEVELOPER-C Unavailable Unavailabl e Ching, Elijah Yi SENIOR ORACLE [address] SQL DEVELOPER-C Unavailable Unavailabl e Ching, Elijah Yi SENIOR ORACLE [address] SQL DEVELOPER-C Unavailable Unavailabl e Ching, Elijah Yi SENIOR ORACLE [address] SQL DEVELOPER-C Unavailable Unavailabl e Ching, Elijah Yi SENIOR ORACLE [address] SQL DEVELOPER-C Unavailable Unavailabl e Ching, Elijah Yi SENIOR ORACLE [address] SQL DEVELOPER-C Unavailable Unavailabl e Ching, Elijah Yi SENIOR ORACLE [address] SQL DEVELOPER-C Unavailable Unavailabl e Ching, Elijah Yi SENIOR ORACLE [address] SQL DEVELOPER-C Unavailable Unavailabl e Ching, Elijah Yi SENIOR ORACLE [address] SQL DEVELOPER-C Unavailable Unavailabl e Ching, Elijah Yi SENIOR ORACLE [address] SQL DEVELOPER-C Unavailable Unavailabl e Ching, Elijah Yi SENIOR ORACLE [address] SQL DEVELOPER-C Unavailable Unavailabl e Ching, Elijah Yi SENIOR ORACLE [address] SQL DEVELOPER-C Unavailable Unavailabl e Ching, Elijah Yi SENIOR ORACLE [address] SQL DEVELOPER-C Unavailable Unavailabl e Ching, Elijah Ballyce SENIOR ORACLE [address] SQL DEVELOPER-C Unavailable Unavailabl e Lino Marie MD Unavailable [...] Unavailable Lino Marie MD Unavailable Unavailable Lino Marei MD Unavailable Unavailable FrankLino jasmine MD Unavailable [...] Lino Kahn MD Unavailable Unavailable Frank, Lino aKhn MD Unavailable Unavailable Frank, Lino Kahn MD [...] Unavailable MARI, CHAO MD Unavailable Unavailable ONDINA RAIMREZ MD Unavailable Unavailable ONDINA RAMIREZ MD Unavailable Unavailable ONDINA RAMIREZ MD Unavailable Unavailable ONDINA RAMIREZ MD Unavailable Unavailable ONDINA RAMIREZ MD Unavailable Unavailable ONDINA RAMIREZ MD Unavailable Unavailable ONDINA RAMIREZ MD Unavailable Unavailable ONDINA RAMIREZ MD Unavailable Unavailable BROWN, L JANE Unavailable Unavailable DESJARLAIS, KAROLYN CLERICAL ADMINISTRATIVE ASSISTANT Unavailable Unavailable DESJARLAIS, KAROLYN CLERICAL ADMINISTRATIVE ASSISTANT Unavailable Unavailable DESJARLAIS, KAROLYN CLERICAL ADMINISTRATIVE ASSISTANT Unavailable Unavailable DESJARLAIS, KAROLYN CLERICAL ADMINISTRATIVE ASSISTANT Unavailable Unavailable DESJARLAIS, KAROLYN CLERICAL ADMINISTRATIVE ASSISTANT Unavailable Unavailable DESJARLAIS, KAROLYN CLERICAL ADMINISTRATIVE ASSISTANT Unavailable Unavailable DESJARLAIS, KAROLYN CLERICAL ADMINISTRATIVE ASSISTANT Unavailable Unavailable DESJARLAIS, KAROLYN CLERICAL ADMINISTRATIVE ASSISTANT Unavailable Unavailable DESJARLAIS, KAROLYN CLERICAL ADMINISTRATIVE ASSISTANT Unavailable Unavailable MAHESH RECINOS Unavailable Unavailable Lester, Mavis SENIOR ORACLE PL SQL DEVELOPER SENIOR ORACLE PL SQL DEVELOPER Unavailable Unavailable BLUM KATRIN Unavailable Unavailable Lester, A Mavis SENIOR ORACLE [address] SQL DEVELOPER Unavailable Unavailable Lester, A Mavis SENIOR ORACLE PL SQL DEVELOPER Unavailable Unavailable Lester, A Mavis SENIOR ORACLE PL SQL DEVELOPER Unavailable Unavailable Lester, A Mavis SENIOR ORACLE [address] SQL DEVELOPER Unavailable Unavailable Lester, A Mavis SENIOR ORACLE PL SQL DEVELOPER Unavailable Unavailable Lester, A Mavis SENIOR ORACLE PL SQL DEVELOPER Unavailable Unavailable Lester, A Mavis SENIOR ORACLE PL SQL DEVELOPER Unavailable Unavailable Lester, A Mavis SENIOR ORACLE PL SQL DEVELOPER Unavailable Unavailable Lester, A Mavis SENIOR ORACLE PL SQL DEVELOPER Unavailable Unavailable Lester, A Mavis SENIOR ORACLE PL SQL DEVELOPER Unavailable Unavailable Lester, A Mavis SENIOR ORACLE PL SQL DEVELOPER Unavailable Unavailable Lester, A Mavis SENIOR ORACLE PL SQL DEVELOPER Unavailable Unavailable Lester, A Mavis SENIOR ORACLE PL SQL DEVELOPER Unavailable Unavailable Lester, A Mavis SENIOR ORACLE PL SQL DEVELOPER Unavailable Unavailable Lester, A Mavis SENIOR ORACLE PL SQL DEVELOPER Unavailable Unavailable Lester, A Mavis SENIOR ORACLE PL SQL DEVELOPER Unavailable Unavailable Lester, A Mavis SENIOR ORACLE PL SQL DEVELOPER Unavailable Unavailable Lester, A Mavis SENIOR ORACLE [address] SQL DEVELOPER Unavailable Unavailable Lester, A Mavis SENIOR ORACLE PL SQL DEVELOPER Unavailable Unavailable Lester, A Mavis SENIOR ORACLE PL SQL DEVELOPER Unavailable Unavailable Lester, A Mavis SENIOR ORACLE PL SQL DEVELOPER Unavailable Unavailable Lester, A Mavis SENIOR ORACLE PL SQL DEVELOPER Unavailable Unavailable Lester, A Mavis SENIOR ORACLE PL SQL DEVELOPER Unavailable Unavailable Lester, A Mavis SENIOR ORACLE PL SQL DEVELOPER Unavailable Unavailable Letser, A Mavis SENIOR ORACLE PL SQL DEVELOPER Unavailable Unavailable Lester, A Mavis SENIOR ORACLE [address] SQL DEVELOPER Unavailable Unavailable Lester, A Mavis SENIOR ORACLE [address] SQL DEVELOPER Unavailable Unavailable Lester, A Mavis SENIOR ORACLE [address] SQL DEVELOPER Unavailable Unavailable Re-disclosure Warning The records that [...] is protected by Article 27-F of the [facility] Public Health law. If you continue you may have access to information: Regarding HIV / AIDS; Provided by facilities licensed or operated by the [facility] Office of Mental Health; or Provided by the [facility] Office for People With Developmental Disabilities. If such information is present, then the following [facility] mandated warning applies: This information has [...] Drug allergy AMOXICLIIN SWELLING, HIVES SV R [facility] Drug allergy olanzapine ol[facility]apine [facility] Drug allergy trimethoprim trimethoprim "BLISTERS IN MOUTH" [facility] Drug allergy sulfamethoxazole sulfamethoxazole "BLISTERS IN MOUTH" [facility] Drug allergy haloperidol haloperidol [facility] Drug allergy Sulfa (Sulfonamide Antibiotics) Sulfa (Sulfonami de Antibiotics) "BLISTERS IN MOUTH" [facility] Drug allergy Penicillins Penicillins SWELLING, HIVES SV R er [facility] Encounters Encounter Providers Location Date Indications Data Source(s ) Preadmit Attender: FAHAD MOONEY 04/15/2020 09:45:0 0 AM [facility] Outpatient Attender: JANE EDWARD 03/23/2020 02:00:00 PM [facility] Outpatient Attender: JANE EDWARD 03/17/2020 10:30:00 AM [facility] Outpatient Attender: JANE EDWARD 03/11/2020 04:00:00 PM [facility] Preadmit Attender: FAHAD MOONEY 03/11/2020 06:30:0 0 AM [facility] Outpatient Attender: KAROLYN VAN NP 03/09/2020 03: 40:00 PM [facility] Outpatient [facility] 03/03/2020 12:00:00 AM [facility] eCW ([facility]) Outpatient Attender: Shira Becerraferrer: Shira Youngblood PA-C EMERGENCY ROOM-LAB 03/01/2020 04:49:00 PM [facility] - 03/01/2020 04:49:00 PM [facility] Outpatient Attender: Shira Youngblood PA-C 03/01/2020 03:45 :00 PM [facility] Outpatient [facility] 03/01/2020 12:00:00 AM EST eCW1 ([facility]) Outpatient [facility] 03/01/2020 12:00:00 AM [place] [address] ([facility]) Outpatient Attender: KAROLYN VAN NP 02/18/2020 02: 40:00 PM [facility] Outpatient Attender: Kassidy NAIRC 02/18/2020 10:00:0 0 AM EST [facility] Outpatient [facility] 02/18/2020 12:00:00 AM EST eCW1 ([facility]) Outpatient [facility] 02/10/2020 12:00:00 AM EST eCW1 ([facility]) Outpatient [facility] 02/03/2020 12:00:00 AM EST eCW1 ([facility]) Outpatient [facility] 01/14/2020 12:00:00 AM EST eCW1 ([facility]) Outpatient [facility] 01/06/2020 12:00:00 AM EST eCW1 ([facility]) Outpatient Attender: JOHNATHON PATEL 01/02/2020 10:06:00 A M EST [facility] Outpatient [facility] 01/02/2020 12:00:00 AM EST eCW1 ([facility]) Outpatient Attender: JANE EDWARD 01/01/2020 02:30:00 PM E [facility] Outpatient Attender: KAROLYN VAN NP 12/24/2019 11: 00:00 AM T [facility] Outpatient Attender: Shira Youngblood PA-C 12/24/2019 08:24 :00 AM EDT [facility] Outpatient [facility] 12/24/2019 12:00:00 AM EDT eCW1 ([facility]) Outpatient Attender: JANE EDWARD 12/23/2019 01:54:00 PM E [facility] Outpatient [facility] 12/23/2019 12:00:00 AM EDT eCW1 ([facility]) Outpatient Attender: Mavis PATEL 12/12/2019 11:3 5:02 AM EDT [facility] Outpatient Attender: JANE EDWARD 12/11/2019 03:00:00 PM E [facility] Outpatient [facility] 12/09/2019 12:00:00 AM EDT eCW1 ([facility]) Outpatient Attender: Mavis PATEL 12/05/2019 01:2 6:01 PM EDT [facility] Inpatient Attender: PRERNA RIOS MDAdmitter: PRERNA Hopson MD ER-3RD 12/05/2019 10:08:00 AM EDT - 12/10/2019 01:07:00 PM EDT [facility] Patient discharged. Outpatient Attender: NATHAN PAUL PA-C 12/05/2019 09:03:00 AM EDT [facility] Admission cancelled. Disregard status an d admitted date. Inpatient Attender: BEHZAD HOGAN MD Attender: BEHZAD HOGAN MDAttender: DIOGENES BUENO MDAttender: DIOGENES BUENO MDAdmitter: BEHZAD HOGAN MD ER-ICU 12/04/2019 11:06:00 PM EDT - 12/05/2019 10:03:00 AM EDT [facility] Patient discharged. Emergency Attender: GINGER Diazerrer: Melissa Youngblood PA-C EMERGENCY ROOM-ER 12/04/2019 04:21:00 PM EDT - 12/04/2019 08:40:00 PM EDT [facility] Patient discharged. Outpatient Attender: KAROLYN VAN NP 12/04/2019 03: 11:00 PM EDT [facility] Outpatient Attender: Mavis PATEL 11/29/2019 07:0 4:03 PM EDT [facility] Outpatient Attender: JOHNATHON PATEL 11/29/2019 07:04:01 P M EDT [facility] Outpatient Attender: Mavis PATEL 11/24/2019 12:2 9:00 PM EDT [facility] Emergency Attender: EVONNE HAGENConsultant: STAFF NON 11/07/2019 12:19:00 AM EDT - 11/07/2019 04:20:00 AM EDT [facility] Patient discharged. Outpatient [facility] 11/07/2019 12:00:00 AM EDT eCW1 ([facility]) Outpatient Attender: Mavis PATEL 11/04/2019 02:2 6:02 PM EDT [facility] Outpatient Attender: KAROLYN VAN NP 11/04/2019 11: 40:00 AM EDT [facility] Outpatient Attender: Mavis PATEL 11/02/2019 01:2 6:00 PM EDT [facility] Outpatient Attender: Mavis PATEL 10/31/2019 06:0 2:00 PM EDT [facility] Outpatient Attender: JOHNATHON DIEGO FP 10/31/2019 06:01:59 P M EDT [facility] Outpatient Attender: Mavis DIEGO FP 10/31/2019 06:0 1:03 PM EDT [facility] Outpatient Attender: JOHNATHON DIEGO FP 10/31/2019 06:01:01 P M EDT [facility] Outpatient Attender: Shira Youngblood PA-C 10/31/2019 09:06 :00 AM EDT [facility] Outpatient [facility] 10/31/2019 12:00:00 AM EDT eCW1 ([facility]) Outpatient Attender: JANE EDWARD 10/27/2019 11:00:00 AM E [facility] Outpatient Attender: KAROLYN VAN NP 10/21/2019 03: 20:00 PM EDT [facility] Emergency Attender: EVONNE HAGENConsultant: STAFF NON 10/09/2019 02:09:00 AM EDT - 10/09/2019 03:44:00 AM EDT [facility] Patient discharged. Outpatient Attender: KATRIN BLUM 10/06/2019 09:37:00 AM ED [facility] Outpatient Attender: Mavis DIEGO 09/25/2019 04:0 9:01 PM EDT [facility] Outpatient Attender: Mavis DIEGO 09/25/2019 04:0 7:59 PM EDT [facility] Outpatient Attender: JOHNATHON DIEGO FP 09/23/2019 10:31:00 A M EDT [facility] Outpatient Attender: JOHNATHON DIEGO FP 09/23/2019 10:30:01 A M EDT [facility] Outpatient Attender: JOHNATHON DIEGO FP 09/23/2019 12:02:09 A M EDT [facility] Outpatient Attender: JOHNATHON DIEGO FP 09/22/2019 05:44:02 P M EDT [facility] Outpatient Attender: Mavis DIEGO FP 09/22/2019 05:4 2:59 PM EDT [facility] Outpatient Attender: JOHNATHON PATEL 09/22/2019 02:38:00 P M EDT [facility] Outpatient Attender: Mavis DIEGO FP 09/22/2019 12:0 5:01 PM EDT [facility] Outpatient Attender: JOHNATHON DIEGO FP 09/22/2019 07:56:01 A M EDT [facility] Outpatient Attender: Mavis DIEGO FP 09/16/2019 05:0 8:02 AM EDT [facility] Outpatient Attender: Mavis TRUJILLOP FP 09/14/2019 05:1 9:00 PM EDT [facility] Outpatient Attender: JOHNATHON DIEGO FP 09/14/2019 05:19:00 P M EDT [facility] Outpatient Attender: Mavis TRUJILLOP FP 09/12/2019 11:5 3:00 AM EDT [facility] Outpatient Attender: Mavis DIEGO FP 09/10/2019 11:0 6:01 PM EDT [facility] Outpatient Attender: JOHNATHON DIEGO FP 09/10/2019 11:06:01 P M EDT [facility] Outpatient Referrer: Femi Marie MD 08/15/2019 05:44:00 A M EDT [facility] Outpatient Attender: Mavis DIEGO FP 08/06/2019 09:5 2:01 AM EDT [facility] Outpatient Attender: JOHNATHON DIEGO FP 08/05/2019 07:41:16 P M EDT [facility] Outpatient Attender: Mavis DIEGO FP 08/05/2019 09:2 3:03 AM EDT [facility] Outpatient Attender: JOHNATHON DIEGO FP 08/05/2019 09:23:01 A M EDT [facility] Outpatient Attender: KATRIN BLUM 08/04/2019 09:42:00 AM ED [facility] Outpatient Attender: Mavis DIEGO FP 08/01/2019 10:3 1:00 AM EDT [facility] Outpatient Attender: Mvais DIEGO FP 08/01/2019 10:2 7:02 AM EDT [facility] Outpatient Attender: JOHNATHON DIEGO FP 07/30/2019 11:31:01 A M EDT [facility] Outpatient Attender: KATRIN BLUM 07/07/2019 03:30:00 PM ED [facility] Outpatient Attender: Mavis DIEGO FP 07/04/2019 10:3 3:02 AM EDT [facility] Outpatient Attender: Mavis DIEGO FP 07/03/2019 01:5 2:01 PM EDT [facility] Outpatient Attender: Mavis DIEGO FP 07/02/2019 10:2 8:02 AM EDT [facility] Outpatient Attender: Mavis DIEGO FP 07/01/2019 09:5 7:00 AM EDT [facility] Outpatient Attender: JOHNATHON DIEGO FP 07/01/2019 08:57:00 A M EDT [facility] Outpatient Referrer: Femi Marie MD 07/01/2019 04:55:00 A M EDT [facility] Outpatient Attender: JOHNATHON DIEGO FP 06/30/2019 04:21:00 P M EDT [facility] Outpatient Attender: Mavis DIEGO FP 06/22/2019 06:0 1:59 PM EDT [facility] Outpatient Attender: Mavis DIEGO FP 06/17/2019 03:3 2:01 PM EDT [facility] Outpatient Attender: JOHNATHON DIEGO FP 05/27/2019 12:22:00 P M EDT [facility] Outpatient Attender: Mavis DIEGO FP 05/24/2019 11:3 7:01 PM EDT [facility] Outpatient Attender: JOHNATHON DIEGO FP 05/20/2019 12:36:01 P M EDT [facility] Outpatient Attender: JOHNATHON DIEGO FP 05/20/2019 11:56:00 A M EDT [facility] Outpatient Attender: JOHNATHON DIEGO FP 05/20/2019 11:42:01 A M EDT [facility] Outpatient Attender: JOHNATHON DIEGO FP 05/01/2019 03:31:00 P M EST [facility] Outpatient Attender: Mavis DIEGO FP 04/28/2019 10:4 4:01 AM [facility] Outpatient Attender: KATRIN BLUM 04/21/2019 10:29:00 AM [facility] Outpatient Attender: JOHNATHON DIEGO FP 04/15/2019 12:44:01 P M [facility] Outpatient Attender: MAHESH RECINOS 02/24/2019 01:46:00 PM [facility] Outpatient Attender: JANE EDWARD 02/21/2019 10:00:00 AM E [facility] Outpatient Attender: JOHNATHON PATEL 02/18/2019 09:01:04 P M EST [facility] Outpatient Attender: MAHESH RECINOS 02/10/2019 02:18:00 PM [facility] Outpatient Attender: MAHESH RECINOS 01/20/2019 04:26:00 PM [facility] Inpatient Attender: CHAO GUERRA MDAtten harjinder: PRERNA RIOS MDAdmitter: PRERNA RIOS MD ER-3RD 12/23/2018 04:01:00 PM EDT - 12/26/2018 01:22:00 PM EDT [facility] Patient discharged. Inpatient Attender: ONDINA RAMIREZ MDAdmitter: ONDINA RAMIREZ MD E R-ICU 12/19/2018 05:26:00 PM EDT - 12/23/2018 03:42:00 PM EDT [facility] Patient discharged. Emergency Attender: MATIAS MIKE EMERGENCY ROOM-ER 03:51:00 PM EDT - 12/19/2018 04:47:00 PM T [facility] Patient discharged. Medications Medication Brand Name [...] AREA(S) THREE TIMES A DAY SOLD: 01/02/2020 [facility] 8-2 mg 01/01/2020 12:00:00 AM EST film [address] TWO FILMS UNDER THE TONGUE EVERY DAY MAXIMUM DAILY DOSE = [address] TWO FILMS UNDER THE TONGUE EVERY DAY MAXIMUM DAILY DOSE = 2 FILMS SOLD: 01/02/2020 [facility] Clonidine Hydrochloride 0.2 MG Oral Tablet Clonidine H Cl 0.2 MG Clonidine HCl 0.2 MG 12/24/2019 12:00:00 AM EDT 1.0 {tablet} activ e Clonidine HCl 0.2 MG eCW1 ([facility] Clonidine Hydrochloride 0.2 MG Oral Tablet Clonidine H Cl 0.2 MG Clonidine HCl 0.2 MG 12/24/2019 12:00:00 AM EDT 1.0 {tablet} activ e Clonidine HCl 0.2 MG eCW1 ([facility]) Clonidine Hydrochloride 0.2 MG Oral Tablet Clonidine H Cl 0.2 MG Clonidine HCl 0.2 MG 12/24/2019 12:00:00 AM EDT 1.0 {tablet} activ e Clonidine HCl 0.2 MG eCW1 ([facility]) Clonidine Hydrochloride 0.2 MG Oral Tablet Clonidine H Cl 0.2 MG Clonidine HCl 0.2 MG 12/24/2019 12:00:00 AM EDT 1.0 {tablet} suspe nded Clonidine HCl 0.2 MG eCW1 ([facility]) Clonidine Hydrochloride 0.2 MG Oral Tablet Clonidine H Cl 0.2 MG Clonidine HCl 0.2 MG 12/24/2019 12:00:00 AM EDT 1.0 {tablet} activ e Clonidine HCl 0.2 MG eCW1 ([facility]) Clonidine Hydrochloride 0.2 MG Oral Tablet Clonidine H Cl 0.2 MG Clonidine HCl 0.2 MG 12/24/2019 12:00:00 AM EDT 1.0 {tablet} activ e Clonidine HCl 0.2 MG eCW1 ([facility]) Clonidine Hydrochloride 0.2 MG Oral Tablet Clonidine H Cl 0.2 MG Clonidine HCl 0.2 MG 12/24/2019 12:00:00 AM EDT 1.0 {tablet} activ e Clonidine HCl 0.2 MG eCW1 ([facility]) Clonidine Hydrochloride 0.2 MG Oral Tablet Clonidine H Cl 0.2 MG Clonidine HCl 0.2 MG 12/24/2019 12:00:00 AM EDT 1.0 {tablet} suspe nded Clonidine HCl 0.2 MG eCW1 ([facility]) Clonidine Hydrochloride 0.2 MG Oral Tablet Clonidine H Cl 0.2 MG Clonidine HCl 0.2 MG 12/24/2019 12:00:00 AM EDT 1.0 {tablet} suspe nded Clonidine HCl 0.2 MG eCW1 ([facility]) Clonidine Hydrochloride 0.2 MG Oral Tablet Clonidine H Cl 0.2 MG Clonidine HCl 0.2 MG 12/24/2019 12:00:00 AM EDT 1.0 {tablet} activ e Clonidine HCl 0.2 MG eCW1 ([facility]) Clonidine Hydrochloride 0.2 MG Oral Tablet Clonidine H Cl 0.2 MG Clonidine HCl 0.2 MG 12/24/2019 12:00:00 AM EDT 1.0 {tablet} activ e Clonidine HCl 0.2 MG eCW1 ([facility]) 300 mg 12/13/2019 12:00:00 [...] 20 MG eCW1 ([facility]) 75 mg 11/02/2019 12:00:00 AM EDT tablet [...] MOUTH FOUR TIMES A DAY SOLD: 09/20/2019 [facility] 500 unit/gram 09/10/2019 12:00:00 AM EDT [...] MAXIMUM DAILY DOSE = 2 SOLD: 06/27/2019 [facility] 400 mg 06/23/2019 12:00:00 AM EDT [...] Covered democrat ID Covered democrat's relationship to dick Policy Dick Plan Information [facility] COMMUNITY PLAN [facility] [id number] SP [id number] [facility] [id number] S [id number] [facility] MEDICAID [id number] S [id number] [facility] MEDICAID [id number] S [id number] [facility] MEDICAID [id number] S [id number] [facility] O [id number] S [id number] Managed Care [facility] Community Plan P [id number] S [id number] Medicaid S [id number] [facility] [id number] SP [id number] [facility] [id number] S [id number] [facility] COMMUNITY PLAN [facility] [id number] SP [id number] [facility] COMMUNITY PLAN [id number] MEDICAID [id number] SP [id number] Managed Care - [facility] Community Plan P [id number] S [id number] MEDICAID [id number] MEDICAID [id number] S [id number] MEDICAID PROF FEES [id number] MEDICAID [id number] S [id number] [facility] [id number] S [id number] Medicaid S [id number] S [id number] Managed Care - Community Plan [facility] P [id number] S [id number] [facility] [id number] SP [id number] Medicaid P [id number] SELF PAY ONLY [id number] SP [id number] [facility] COMMUNITY PLAN [facility] [id number] SP [id number] [facility] DE[facility] [id number] SP [id number] SELF PAY UNAVAILABLE SP UNAVAILA BLE Self Pay P UNAVAILABLE S UNAVAILA BLE Medicaid P [id number] S [id number] [facility] U[facility]ILABLE S UNAVAILA BLE Managed Care - [facility] P [id number] S [id number] Medicaid S UNAVAILABLE S UNAVAILA BLE Problems, Conditions, and Diagnoses Code Display Name Description Problem Type Effective Dates Data Source(s) K14.6 [id number] Tongue sore Problem 03/01/2020 12:00:[address] eCW1 ([facility]) F19.11 [id number] History of drug abuse Problem 03/01/2020 12: 00:00 AM EST eCW1 ([facility]) F19.10 [id number] Substance abuse Problem 12/24/2019 12:00:00 AM EDT eCW1 ([facility]) F50.81 [id number] Binge eating disorder Problem 11/04/2019 12: 00:00 AM EDT eCW1 ([facility]) K21.9 [id number] Gastroesophageal ref lux disease, esophagitis presence not specified Problem 10/31/2019 12:00:00 AM EDT eCW1 ([facility] [place]note 2[place] F17.200 [id number] Tobacco dependence Problem 10/31/2019 12:00: 00 AM EDT eCW1 ([facility]) E66.9 [id number] Obesity (BMI 30.0-34.9) Problem 0 10/31/2019 12:00:00 AM EDT eCW1 ([facility] jimena) Z68.30 430543807 BMI 30.0-30.9,adult Problem 10/31/2019 12:00 :00 AM EDT eCW1 ([facility]) R13.12 63918219 Oropharyngeal dysphagia Problem 10/31/2019 1 2:00:00 AM EDT eCW1 ([facility]) G56.03 [id number] Carpal tunnel syndrome, bilateral Pr oblem 10/31/2019 12:00:00 AM EDT eCW1 ([facility] jimena) K92.0 Hematemesis Hematemesis - cause unknown 020 05:42:44 PM EDT [facility] I80.9 Phlebitis and thrombophlebitis of unspec ified site Phlebitis and thrombophlebitis of unspecified site 05/20/2019 12:34:09 PM EDT [facility] right AC and right tibia F19.10 Other psychoactive substance abuse, unco mplicated OTHER PSYCHOACTIVE SUBSTANCE ABUSE, UNCOMPLICATED Diagnosis 03/17/2020 10:30:00 AM [facility] F90.0 Attention-deficit hyperactivity disorder , predominantly inattentive type ATTN-DEFCT HYPERACTIVITY DISORDER, PREDOM INATTENT Diagnosis 10:30:00 AM [facility] F11.21 Opioid dependence, in remission OPIOID DEPENDENC E, IN REMISSION Diagnosis 03/17/2020 10:30:00 AM [facility] F50.81 BINGE EATING DISORDER BINGE EATING DISORDER Diagnosis 03/17/2020 10:30:00 AM [facility] F43.12 Post-traumatic stress disorder, chronic POST-TRAUMATIC STRESS DISORDER, CHRONIC Diagnosis 03/17/2020 10:30:00 AM [facility] F25.9 Schizoaffective disorder, unspecified SC HIZOAFFECTIVE DISORDER, UNSPECIFIED Diagnosis 03/17/2020 10:30:00 AM [facility] Z13.29 Encounter for screening for other suspec keven endocrine disorder ENCOUNTER FOR SCREENING FOR OTH SUSPECTE Diagnosis 03/01/2020 04:49:00 PM [facility] Z82.61 Family history of arthritis FAMILY HISTORY OF ARTHRITI S Diagnosis 03/01/2020 03:45:00 PM [facility] Z13.220 Encounter for screening for lipoid disor ders ENCOUNTER FOR SCREENING FOR LIPOID DISORDERS Diagnosis 03/01/2020 03:45:00 PM [facility] Z82.69 Family history of other dise ases of the musculoskeletal system and connective tissue FAMILY HISTORY OF DISEASES OF THE MS SYS AND CONNE Diagnosis 03/01/2020 03:45:00 PM [facility] R50.9 Fever, unspecified FEVER, UNSPECIFIED Diagnosis 05/2020 03:45:00 PM [facility] 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, in r emission OTHER PSYCHOACTIVE SUBSTANCE ABUSE, IN REMISSION Diagnosis 03/01/2020 03:45:00 PM [facility] G56.03 CARPAL TUNNEL SYNDROME, BILATERAL UPPER LIMBS CARPAL TUNNEL SYNDROME, BILATERAL UPPER LIMBS Diagnosis 03/01/2020 03:45:00 PM [facility] james K21.9 Gastro-esophageal reflux disease without esophagitis GASTRO-ESOPHAGEAL REFLUX DISEASE WITHOUT ESOPHAGITIS Diagnosis 02/18/2020 10:00:00 AM [facility] F15.10 Other stimulant abuse, uncomplicated OTH ER STIMULANT ABUSE, UNCOMPLICATED Diagnosis 01/01/2020 02:30:00 PM [facility] F12.10 Cannabis abuse, uncomplicated CANNABIS ABUSE, UNCOMPLI CATED Diagnosis 12/24/2019 11:00:00 AM [facility] F11.10 Opioid abuse, uncomplicated OPIOID ABUSE, UNCOMPLICATE D Diagnosis 12/24/2019 11:00:00 AM [facility] R13.12 Dysphagia, oropharyngeal phase DYSPHAGIA, OROPHARYNGEA L PHASE Diagnosis 12/24/2019 08:24:00 AM [facility] M54.2 Cervicalgia CERVICALGIA Diagnosis 12/24/2019 08:24:00 AM [facility] T50.914D POISONING BY MULTIPLE UNSP DRUG/MEDS/BIO L SUBST, U POISONING BY MULTIPLE UNSP DRUG/MEDS/BIOL SUBST, U Diagnosis 12/24/2019 08:24:00 AM [facility] F19.20 Other psychoactive substance dependence, uncomplicated OTHER PSYCHOACTIVE SUBSTANCE DEPENDENCE, UNCOMPLIC Diagnosis 12/05/2019 10:08:00 AM [facility] R45.851 Suicidal ideations SUICIDAL IDEATIONS Diagnosis 10/2019 10:08:00 AM [facility] G40.909 Epilepsy, unspecified, not intractable, without status epilepticus EPILEPSY, UNSP, NOT INTRACTABLE, WITHOUT STATUS EP Diagnosis 10/2019 10:08:00 AM [facility] F32.2 Major depressive disorder, s rito episode, severe without psychotic features MAJOR DEPRESSV DISORD, SINGLE EPSD, SEV Diagnosis 12/05/2019 10:08:00 AM [facility] F25.1 Schizoaffective disorder, depressive typ e SCHIZOAFFECTIVE DISORDER, DEPRESSIVE TYPE Diagnosis 12/05/2019 10:08:00 AM [facility] Y92.[address] or not applicable UNSPECIFIED PLACE OR NOT APPLICABLE Diagnosis 12/04/2019 11:06:00 PM [facility] X58.XXXA Exposure to other specified factors, ini tial encounter EXPOSURE TO OTHER SPECIFIED FACTORS, INITIAL ENCOU Diagnosis 12/04/2019 11:06:00 P M [facility] T42.6X2A Poisoning by other antiepile ptic and sedative-hypnotic drugs, intentional self-harm, initial encounter POISN BY OTH ANTIEPLPTC AND SED-HYPNTC DRUGS, SLF- Diagnosis 12/04/2019 11:06:00 PM [facility] T40.902A Poisoning by unspecified psy chodysleptics [hallucinogens], intentional self-harm, initial encounter POISONING BY UNSP PSYCHODYSLEPTICS, SELF-HARM, INI Diagnosis 12/04/2019 11:06:00 PM [facility] K21.9 Gastro-esophageal reflux disease without esophagitis GASTRO-ESOPHAGEAL REFLUX DISEASE WITHOUT ESOPHAGIT Diagnosis 12/04/2019 11:06:00 PM [facility] F90.9 Attention-deficit hyperactivity disorder , unspecified type ATTENTION- DEFICIT HYPERACTIVITY DISORDER, UNSPECIF Diagnosis 12/04/2019 11:06:00 PM [facility] F43.10 Post-traumatic stress disorder, unspecif ied POST-TRAUMATIC STRESS DISORDER, UNSPECIFIED Diagnosis 12/04/2019 11:06:[address] [facility] F43.23 Adjustment disorder with mixed anxiety a nd depressed mood ADJUSTMENT DISORDER WITH MIXED ANXIETY AND DEPRESS Diagnosis 12/04/2019 11:06:00 PM [facility] T42.4X2A Poisoning by benzodiazepines, intentiona l self-harm, initial encounter POISONING BY BENZODIAZEPINES, INTENTIONAL SELF-HARM, INIT Diagnosis 12/04/2019 11:06:00 PM [facility] Y93.89 Activity, other specified ACTIVITY, OTHER SPECIFIED Di agnosis 12/04/2019 04:21:00 PM [facility] Y92.[address] the place of o ccurrence of the external cause OT PLACES THE PLACE OF OCCURRENCE OF THE EXTER Diagnosis 09/2019 04:21:00 PM [facility] Z79.899 Other correction (current) drug therapy O THER ASSISTED (CURRENT) DRUG THERAPY Diagnosis 12/04/2019 04:21:00 PM [facility] Z20.828 Contact with and (suspected) exposure to other viral communicable diseases CONTACT W AND EXPOSURE TO OTH VIRAL COMMUNICABLE D Diagnosis 12/04/2019 04:21:00 PM [facility] F17.210 Nicotine dependence, cigarettes, uncompl icated NICOTINE DEPENDENCE, CIGARETTES, UNCOMPLICATED Diagnosis 12/04/2019 04:21:[address] [facility] T50.992A Poisoning by other drugs, me dicaments and biological substances, intentional self-harm, initial encounter POISONING BY OT DRUG/MEDS/BIOL SUBST, SELF-HARM, Diagnosis 12/04/2019 04:21:00 PM [facility] R45.851 Suicidal ideations SUICIDAL IDEATIONS Diagnosis 09/2019 04:21:00 PM [facility] R10497 Nicotine dependence, cigarettes, uncompl icated Nicotine dependence, cigarettes, uncomplicated Diagnosis 11/07/2019 12:19:00 AM [facility] F1510 Other stimulant abuse, uncomplicated Other stimu lant abuse, uncomplicated Diagnosis 11/07/2019 12:19:00 AM [facility] X05818 Other psychoactive substance abuse with psychoactive substance-induced anxiety disorder Other psychoactive substance abuse with psychoactive substance- induced anxiety disorder Diagnosis 11/07/2019 12:19:00 AM [facility] R110 Nausea Nausea Diagnosis 11/07/2019 12:19:[address] [facility] Z76.89 Persons encountering health services in other specified circumstances PERSONS ENCOUNTERING HEALTH SERVICES IN OT CIRCUM Diagnosis 05/2019 09:06:00 AM [facility] Z71.9 Counseling, unspecified COUNSELING, UNSPECIFIED Diagno sis 10/31/2019 09:06:00 AM [facility] Z68.30 Body mass index (BMI) 30.0-30.9, adult B BOB MASS INDEX (BMI) 30.0-30.9, ADULT Diagnosis 10/31/2019 09[facility]06[facility] E66.9 Obesity, unspecified OBESITY, UNSPECIFIED Diagnosis 10/31/2019 09:06:00 AM [facility] R56.9 Unspecified convulsions UNSPECIFIED CONVULSIONS Diagno sis 10/31/2019 09:06:00 AM [facility] F909 Attention-deficit hyperactivity disorder , unspecified type Attention- deficit hyperactivity disorder, unspecified type Diagnosis 10/08 02:09:00 AM EDT [facility] J029 Acute pharyngitis, unspecified Acute pharyngitis, unsp ecified Diagnosis 10/09/2019 02:09:00 AM EDT [facility] F15.11 OTHER STIMULANT ABUSE, IN REMISSION OTHER STIMUL ANT ABUSE, IN REMISSION Diagnosis 02/24/2019 01:46:00 PM [facility] Z72.0 Tobacco use TOBACCO USE Diagnosis 02/21/2019 10:00:00 AM [facility] F12.11 CANNABIS ABUSE, IN REMISSION CANNABIS ABUSE, IN REMISS ION Diagnosis 02/10/2019 02:18:00 PM [facility] Surgeries/Procedures Procedure Description Date Indications Data Source(s) Psychological Tests, Neurobehavioral and Cognitive Status 12/06/2019 12:00:00 AM [facility] Introduction of Electrolytic and Water B alance Substance into Peripheral Vein, Percutaneous Approach 12/04/2019 12:00:00 AM [facility] Results ID Date Data Source [id number] 03/04/2020 12:09:00 PM [facility] Name Value Range Interpretation Code Description Data [place] rce(s) Supporting Document(s) FAZAL DIRECT Negative [facility] Performed at: RN - [facility] [place] [id number] Director: Elsa Garcia MD, Phone: [phone] ID Date Data Source [id number] 03/04/2020 12:05:00 PM EST [facility] Name Value Range Interpretation Code Description Data [place] rce(s) Supporting Document(s) FAZAL Direct Negative Negative [facility] ID Date Data Source [id number] 03/03/2020 08:50:00 AM EST [facility] ADD ON TEST Name Value Range Interpretation Code Description Data [place] rce(s) Supporting Document(s) RHEUMATOID FACTOR SCREEN NEGATIVE NEGATIVE [facility] ID Date Data Source [id number] 03/03/2020 08:37:00 AM [facility] ADD ON TEST Name Value Range Interpretation Code Description Data [place] rce(s) Supporting Document(s) FREE T4 1.0 ng/dL 0.76-1.46 [facility] ID Date Data Source [id number] 03/03/2020 08:37:00 AM EST [facility] ADD ON TEST Name Value Range Interpretation Code Description Data [place] rce(s) Supporting Document(s) TSH 0.422 uIU/mL 0.36-3.74 [facility] ID Date Data Source [id number] 03/03/2020 08:11:00 AM EST [facility] ADD ON TEST Name Value Range Interpretation Code Description Data [place] rce(s) Supporting Document(s) C REACTIVE PROTEIN 15.6 mg/L 0.0-3.0 [facility] ID Date Data Source [id number] 03/03/2020 08:11:00 AM EST [facility] ADD ON TEST Name Value Range Interpretation Code Description Data [place] rce(s) Supporting Document(s) GLUCOSE 85 mg/dL 74-106 [facility] BLOOD UREA NITROGEN 11 mg/dL 7-18 [facility] ital CREATININE 0.88 mg/dL 0.6-1.0 [facility] SODIUM 135 mmol/L 136-145 L [facility] POTASSIUM 4.1 mmol/L 3.5-5.1 [facility] CHLORIDE 99 mmol/L 98-107 [facility] CO2 26 mmol/L 21-32 [facility] CALCIUM 8.8 mg/dL 8.5-10.1 [facility] ANION GAP 10.0 mmol/L 5-12 [facility] GLOMERULAR FILTRATION RATE 74 mL/min [facility] GFR IS CALCULATED IN mL/min/1.73m2 LISANDRA L FUNCTION: >90MILDLY DECREASED: 60-89MILDY TO MODERATELY DECREASED: 45-59 MODERATELY TO SEVERELY DECREASED: 30-44SEVERELY DECREASED: 15-29RENAL FAILURE: <15 AST 32 U/L 15-37 [facility] ALT 32 U/L 12-78 [facility] ALKALINE PHOSPHATASE 65 U/L 46-116 [facility] pital TOTAL BILIRUBIN 0.2 mg/dL 0.2-1.0 [facility] TOTAL PROTEIN 6.9 g/dl 6.4-8.2 [facility] ALBUMIN 3.9 gm/dL 3.4-5.0 [facility] ID Date Data Source [id number] 03/01/2020 05:46:00 PM EST [facility] Name Value Range Interpretation Code Description Data [place] rce(s) Supporting Document(s) CHOLESTEROL 193 mg/dL 0-200 [facility] TRIGLYCERIDES 86 mg/dL 0-150 [facility] LDL CHOLESTEROL 111 mg/dL 0-100 H [facility] HDL CHOLESTEROL 65 mg/dL 40-60 H [facility] CHOL/HDL RATIO 3.0 0.0-5.0 [facility] ID Date Data Source [id number] 02/29/2020 10:40:00 AM EST [facility] Name Value Range Interpretation Code Description Data [place] rce(s) Supporting Document(s) SARS coronavirus 2 RNA [facility] This lab was ordered by [facility] and reported by [facility]. ID Date Data Source [id number] 12/10/2019 11:15:00 AM EDT [address] [id number] NAME: BRUNA LEE#: [id number] PHYSICIAN: RPERNA RIOS MD ADM. DATE: 12/05/19ACCOUNT #: [id number] DISCH. DATE:DISCHARGE SUMMARYIDENTIFICATION: A 34-year-old female with schizoaffective disorder,polysubstance dependence.CHIEF COMPLAINT: "I don't know why I am here."REASON FOR ADMISSION: Post- overdose.HISTORY OF PRESENT ILLNESS: The patient was interviewed in ICU after sheoverdosed. The patient was seen in [facility] for a regularconsultation, she could not [...] [place] The last time in our service with [...] ABUSE: None.SOCIAL HISTORY: The patient is from [place], did not finish high school.She was in [...] The patient was discharged with the medications Mbrbus27 mg p.o. daily, Neurontin 600 mg p.o. [...] be enrolled in outpatient chemical dependence in [place].MENTAL STATUS EXAMINATION: The patient is pleasant, cooperative. [...] Dictated: 12/10/2019 09:34:34Date Transcribed: 12/10/2019 10:15:05JV/PUSJob #: [id number]: 12/10/19 0934 Electronically SignedTRANS:12/10/19 1115 PRERNA RIOS MDTRANS BY:ADE SIGNED:12/10/19REPORT COPY TO: Name Value Range Interpretation Code Description Data [place] rce(s) Supporting Document(s) ID Date Data Source [id number] 12/10/2019 06:43:00 AM EDT [place], [place] [address]PATIENT NAME: BRUNA LEE#: [id number] PHYSICIAN: PRERNA RIOS [facility] #: [id number] ADM. DATE: 12/05/19PATIENT : 89 DISCH. DATE: [...] follow-upappointmentDischarge InformationDISCHARGE INFORMATION* Thank you for choosing [facility] and allowing us toserve you* Our Goal is to provide the highest quality of care.* This discharge information is to help you better understand your diagnosisand medication* Avoid taking dbky-lnm-eskbtpi medicines unless approved by your physician.* Take your medications as prescribed. DO NOT stop any medications unlessapproved first* Weigh yourself daily. Report any gain of 5 lbs in a week* 24 Hour Crisis HOTLINE available: Call [facility] at [phone]* Chem. Dependency: Walk in Clinics [facility] ([phone]) and [facility] ([phone]) anytime Sunday thru Sunday 8 to 10am. [facility] ([phone]) anytimeSunday thru Sunday 8 to 10am. [place] ([phone]) Sunday or Sunday from 8to 10am (Bring $30 to [facility]) SMOKIN G CESSATION* Smoking is dangerous to your health. It delays the healing process, andworks against your medications. Not smoking will improve your health* Our hospital participates with the Opt-to-Quit program. You will be contactedafter discharge by the [facility] Smoker's Quitline for support with tobaccocessation. You have the option once contacted to refuse this service.* You can also go online to www.Whelse. Free nicotine replacementsare available Attention* You should [...] rce(s) Supporting Document(s) ID Date Data Source [id number] 12/10/2019 02:15:00 AM EDT [address] [address]VBWBDGH NAME: BRUNA LEE Joe.RJayro#: [id number] PHYSICIAN: PRERNA RIOS MD ADM. DATE: 12/05/19PROGRESS NOTE DATE: 12/09/19 RM.#: [id number] #: [id number] NOTEIDENTIFICATION: A 34-year-old female with mood disorder [...] Dictated: 12/09/2019 10:52:52Date Transcribed: 12/10/2019 01:15:28JV/RAVJob #: [id number]: 12/09/19 1052 Electronically SignedTRANS:12/10/195 PRERNA RIOS MDTRANS BY:ADE SIGNED:12/10/19REPORT COPY TO: Name Value Range Interpretation Code Description Data [place] rce(s) Supporting Document(s) ID Date Data Source [id number] 12/08/2019 11:58:00 AM EDT [facility] Name Value Range Interpretation Code Description Data [place] rce(s) Supporting Document(s) URINE COLOR Yellow [facility] UAPR Clear [facility] UGLU Negative NEGATIVE [facility] URINE BILIRUBIN Negative NEGATIVE [facility] UKET Negative NEGATIVE [facility] USG 1.015 1.010-1.025 [facility] UBLO Negative NEGATIVE [facility] UpH 8.0 5.0-8.0 [facility] UPRO Negative Negative [facility] UUB 0.2 mg/dL 0.2-1.0 [facility] UNIT Negative Negative [facility] ULEU Negative Negative [facility] ID Date Data Source [id number] 12/09/2019 04:57:00 AM EDT [facility] [address] [address]DPHFRBG NAME: BRUNA LEE#: [id number] PHYSICIAN: PRERNA RIOS MD ADM. DATE: 12/05/19PROGRESS NOTE DATE: 12/08/19 .#: [id number] #: [id number] NOTEIDENTIFICATION: A 34-year-old female with mood disorder, [...] Dictated: 12/08/2019 10:30:51Date Transcribed: 12/09/2019 03:57:49JV/Basia #: [id number]: 12/08/19 1030 Electronically SignedTRANS:12/09/19 0457 PRERNA RIOS MDTRANS BY:IATDATE SIGNED:12/09/19REPORT COPY TO: Name Value Range Interpretation Code Description Data [place] rce(s) Supporting Document(s) ID Date Data Source [id number] 12/06/2019 11:02:00 PM EDT [place], [place] [address]PATIENT NAME: BRUNA LEE#: [id number] PHYSICIAN: PRERNA RIOS MD ADM. DATE: 12/05/19ACCOUNT #: [id number] .#: [id number] ASSESSMENTIDENTIFICATION: A 34-year-old female with schizoaffective disorder andpolysubstance dependence.CHIEF COMPLAINT: "I don't know why I am here."REASON FOR ADMISSION: Post-overdose.HISTORY OF PRESENT ILLNESS: According to the records and our interview, thepatient was brought to our service after being in ICU and the medical floorfor an overdose. The patient went to the outpatient clinic in [facility] and she passed out in consultation. She [...] 2 weeks ago, that she was in [place] inpatient service for 5 days forthat.The patient [...] into detail.SOCIAL HISTORY: The patient is from [place]. Did not finish high school.She is in [...] Dictated: 12/06/2019 12:22:47Date Transcribed: 12/06/2019 22:02:14JV/GBJob #: [id number]: 12/06/19 1222 Electronically Signed TRANS:12/06/19 2302 PRERNA RIOS MDTRANS BY:IATDAFUNMI SIGNED:12/07/19REPORT COPY TO: Name Value Range Interpretation Code Description Data [place] rce(s) Supporting Document(s) ID Date Data Source [id number] 12/05/2019 02:12:00 AM EDT [facility] Name Value Range Interpretation Code Description Data [place] rce(s) Supporting Document(s) CKI 109 U/L 17-150 [facility] ID Date Data Source [id number] 12/05/2019 04:49:00 PM EDT [facility] [address] HEALTH HISTORY AND PHYSICALPATIENT NAME: BRUNA LEE MR#: [id number] PHYSICIAN: PRERNA RIOS MDAUTHOR: Ximena HERNANDEZ, Diogenes [...] [facility]Past Medical/Surgical HistoryPast Medical/Surgical HistoryMedical ProblemsAcute respiratory [...] rce(s) Supporting Document(s) ID Date Data Source [id number] 12/05/2019 09:48:00 AM EDT [address] [address]JNBDDHWKD SUMMARYPATIENT NAME: BRUNA LEE MR#: [id number] PHYSICIAN: BEHZAD HOGAN MDAUTHOR: Diogenes Bueno MD DATE: 12/04/19 RM#: [id number] DATE: 12/05/19 : 87Summary of HospitalizationReason for AdmissionOverdose on xanax, gabapentin, bath saltsHospital Vzgyqb87 yo F who was admitted for an [...] and [facility]Diagnoses (Current Visit)Problem List1. Drug overdose2. Seizure [...] taking the following medications:Gabapentin* (Neurontin*) 400 MG [id number] MILLIGRAM Orally DAILYContinue taking these medications:LEVETIRACETAM (LEVETIRACETA) 1,000 MG TABLET1,000 MILLIGRAM Orally TWICE DAILYQty = 60Amitriptyline HCl (Amitriptyline HCl) 100 MG [id number] MILLIGRAM Orally DAILYSUCRALFATE (Carafate*) 1 GM TABLET1 GM Orally TWICE DAILYcloniDINE* (CLONIDINE*) 0.1 MG TABLET0.1 MILLIGRAM Orally TWICE DAILYOmeprazole Magnesium (Prilosec Otc) 20 MG TABLET.DR20 MILLIGRAM Orally DAILYrispERIdone (RISPERDAL*) 0.5 MG TABLET2 MILLIGRAM Orally TWICE DAILYATOMOXETINE HCL (Strattera) 18 MG [id number] MILLIGRAM Orally DAILYBUPRENORPHINE HCL/NALOXONE HCL (Suboxone 8 MG-2 MG Sl Film) 1 EACH FILM1 MILLIGRAM SublinguallySUMATRIPTAN SUCCINATE (Imitrex*) 50 MG [id number] MILLIGRAM Orally DAILY NEEDED as needed for HeadacheOxcarbazepine (Trileptal) 150 MG [id number] MILLIGRAM Orally TWICE DAILYDischarge Activity: As tolerated, No liftingDischarge diet: RegularFollow-upFollow up with the [facility] spent by provider to complete discharge > 30 minutesDATE SIGNED: 12/05/19 Electronically SignedTIME SIGNED: 1912 DIOGENES BUENO MD Name Value Range Interpretation Code Description Data [place] rce(s) Supporting Document(s) ID Date Data Source [id number] 12/05/2019 09:46:00 AM [address] [place], [place] [address]VJBTYIT NAME: BRUNA LEE Joe Orellana#: [id number] PHYSICIAN: BEHZAD HOGAN [facility]: [id number] ADM. DATE: 12/04/19PATIENT : 89 DISCH. DATE: [50}DISCHARGE SUMMARYMedical Discharge PlanNicotine Replacement TherapyPrescribed at discharge Rx not offered at DCReason not offered [facility] Care InstructionsDischarge Activity: As tolerated, No liftingDischarge diet: RegularProblem ListMedical ProblemsAcute respiratory failure (Acute)Drug abuse (Chronic)Drug overdose (Acute)SchizophreniaSeizure disorder (Chronic, 12/20/18)Follow Up CareFollow Up:Follow up [facility] ItemsUrgent/Important items that need to be addressed at primary care follow-upappointmentPLEASE AVOID GABAPENTIN/XANAX/BATH SALTS IN THE FUTUREDischarge InformationDISCHARGE INFORMATION* Thank you for choosing [facility] and allowing us toserve you* Our [...] Hour Crisis HOTLINE available: Call [employer] at [phone] SMOKING CESSATION* Smoking is dangerous to your health. It delays the healing process, andworks against your medications. Not smoking will improve your health* Our hospital participates with the Opt-to-Quit program. You will be contactedafter discharge by the [facility] Smoker's Quitline for support with tobaccocessation. You have the option once contacted to refuse this service.* You can also go online to www.Whelse. Free nicotine replacementsare available Attent ion* You [...] rce(s) Supporting Document(s) ID Date Data Source [id number] 12/06/2019 02:37:00 AM EDT [facility] [address] [id number] NAME: BRUNA LEE#: [id number] PHYSICIAN: BEHZAD HOGAN MD ADM. DATE: 12/04/19CONSULTING PHYSICIAN: PRERNA RIOS MD .#: ICUACCOUNT #: [id number] REPORTIDENTIFICATION: A 34-year-old female with mood disorder. This is a shortconsultation for a 34-year-old female who was unresponsive. The patient is inICU and at this point it is not clear the reason for an overdose.According to the records, the patient has a history of seizures, GERD, carpaltunnel, adjustment disorder, anxiety, depression, PTSD, and ADHD. Accordingto the records, the patient went to [facility] for an evaluation. Shehad an overdose. Was unconscious and at that point, according to the records,she stated that she injected bath salts in the morning, that is when shebecame unconscious and it is not clear who called the EMS that brought her [facility]. The patient has poor response to [...] the lastthing she remembers is being at [facility] so she is oriented to person, not [...] Dictated: 12/05/2019 09:24:19Date Transcribed: 12/06/2019 01:37:33JV/GBJob #: [id number]: 12/05/19 0924 Electronically SignedTRANS:12/06/19 0237 PRERNA RIOS MDTRANS BY:ADE SIGNED:12/09/19REPORT COPY TO: Name Value Range Interpretation Code Description Data [place] rce(s) Supporting Document(s) ID Date Data Source [id number] 12/05/2019 08:01:00 AM EDT [facility] Patient: COME, BRUNA Observation Repor t - [facility] HospitalVisit[facility]: [id number] [place] [address] [phone], FRegistration Date/Time: 12/04/2019 15:46 Weight:68.4 kg (E). [...] Marie Euceda 12/04/2019 20:43) AddBRUNA Conteh VisitID: [id number] Date: 12/04/2019 12/05/2019 7:59Spoke to [facility] nurse Deborah who wanted to come to [place] to see patient. Advised Deborah that the patient was transferred to [facility]. (Electronically signed by Allyssa Paredes R.N. - 12/05/2019 7:59) Name Value Range Interpretation Code Description Data [place] rce(s) Supporting Document(s) ID Date Data Source [id number] 12/05/2019 07:34:00 AM EDT [facility] Name Value Range Interpretation Code Description Data [place] rce(s) Supporting Document(s) GLU 76 mg/dL 70-110 [facility] Patients taking Sulfasalazine may have f alsely depressedGlucose levels. Patients taking Sulfapyridine may havefalsely elevated Glucose levels. Patients should be drawnfor Glucose before the initial administration of eitherdrug. BUN 7 mg/dL 7-23 [facility] CRE 0.500 mg/dL 0.500-1.300 [facility] GFR > 60 mL/min [facility] CHLORIDE 117 mmol/L 99-110 [facility] NA 146 mmol/L 136-147 [facility] POTASSIUM 3.5 mmol/L 3.5-5.1 [facility] TCO2 22 mmol/L 20-33 [facility] ANION GAP 10.5 10.0-20.0 [facility] CA 7.8 mg/dL 8.3-10.7 [facility] ALKALINE PHOS 59 U/L 45-117 [facility] TP 5.7 g/dL 6.0-7.8 [facility] ALB 2.6 g/dL 3.5-5.0 [facility] ESRD Dialysis patient Albumin reference range: 2.9-4.4 g/dL GL 3.1 g/dL 2.3-3.5 [facility] A/G 0.8 1.0-2.5 [facility] T. BILIRUBIN 0.3 mg/dL 0.1-1.1 [facility] [place] Total Bilirubin is n ot recommended forpatients undergoing treatment with eltrombopag (Promacta)due to the potential for falsely elevated results. ALTI 15 U/L 6-54 [facility] Patients taking Sulfasalazine and/or Sul fapyridine may havefalsely depressed ALT levels. Patients should be drawn forALT before the initial administration of either drug. AST 26 U/L 6-38 [facility] Patients taking Sulfasalazine and/or Sul fapyridine may havefalsely depressed AST levels. Patients should be drawn forAST before the initial administration of either drug. ID Date Data Source [id number] 12/05/2019 07:08:00 AM EDT [facility] Name Value Range Interpretation Code Description Data [place] rce(s) Supporting Document(s) WBC 5.38 x10E3/uL 4.0-10.5 [facility] RBC 3.55 x10E6/uL 4.20-5.40 [facility] Hemoglobin 10.6 g/dL 12.0-16.0 [facility] Hematocrit 32.9 % 37.0-47.0 [facility] MCV 92.7 fL 81.0-99.0 [facility] MCH 29.9 pg 27.0-31.0 [facility] MCHC 32.2 g/dL 32.7-35.6 [facility] RDW 13.1 % 11.5-14.0 [facility] Platelet count 251 x10E3/uL 150-450 [facility] ital MPV 10.8 fl 6.9-9.5 [facility] Neutrophils 43.4 % 34-64 [facility] Lymphocytes 44.4 % 25-45 [facility] Monocytes 8.6 % 1.7-10.6 [facility] Eosinophils 2.6 % 0.4-7.0 [facility] Basophils 0.6 % 0.1-2.0 [facility] Imm. Gran. 0.4 % 0.1-2.0 [facility] Abs. Neutro. 2.34 x10E3/uL 1.2-7.6 [facility] Abs. Lymph. 2.39 x10E3/uL 1.0-3.5 [facility] Abs. [place]. 0.46 x10E3/uL 0.1-1.0 [facility] Abs. Eosin. 0.14 x10E3/uL 0.1-0.7 [facility] Abs. Baso. 0.03 x10E3/uL 0.0-0.1 [facility] Abs. Imm. Gran. 0.02 x10E3/uL 0.0-0.1 [facility] ANRBC% 0 % 0 [facility] ID Date Data Source [id number] 12/05/2019 07:07:00 AM EDT [facility] Name Value Range Interpretation Code Description Data [place] rce(s) Supporting Document(s) TROPI < 0.015 ng/mL 0.000-0.079 [facility] ID Date Data Source [id number] 12/10/2019 06:07:00 AM EDT [facility] Performed at: [address] [id number] Director: Robyn Julio MD, Phone: [phone] Name Value Range Interpretation Code Description Data [place] rce(s) Supporting Document(s) LEVETIRACETAM <1.0 ug/mL 10.0-40.0 [facility] Verified by repeat analysisThis test was developed and its performance characteristicsdetermined by [facility]. It has not been cleared orapproved by the Food and Drug Administration. ID Date Data Source [id number] 12/05/2019 12:20:00 AM EDT [facility] Name Value Range Interpretation Code Description Data [place] rce(s) Supporting Document(s) LACTIC ACID CHUCHO 0.4 mmol/L 0.4-2.0 [facility] ID Date Data Source [id number] 12/05/2019 12:20:00 AM EDT [facility] Name Value Range Interpretation Code Description Data [place] rce(s) Supporting Document(s) TROPI < 0.015 ng/mL 0.000-0.079 [facility] Date Data Source [id number] 12/05/2019 12:20:00 AM EDT [facility] Name Value Range Interpretation Code Description Data [place] rce(s) Supporting Document(s) MAGNESIUM 2.1 mg/dL 1.6-2.6 [facility] ID Date Data Source [id number] 12/05/2019 12:20:00 AM EDT [facility] Name Value Range Interpretation Code Description Data [place] rce(s) Supporting Document(s) MARGUERITE 3.2 mg/dL 2.5-4.5 [facility] ID Date Data Source [id number] 12/05/2019 12:20:00 AM EDT [facility] Name Value Range Interpretation Code Description Data [place] rce(s) Supporting Document(s) GLU 104 mg/dL 70-110 [facility] Patients taking Sulfasalazine may have f alsely depressedGlucose levels. Patients taking Sulfapyridine may havefalsely elevated Glucose levels. Patients should be drawnfor Glucose before the initial administration of eitherdrug. BUN 7 mg/dL 7-23 [facility] CRE 0.504 mg/dL 0.500-1.300 [facility] GFR > 60 mL/min [facility] CHLORIDE 115 mmol/L 99-110 [facility] NA 145 mmol/L 136-147 [facility] POTASSIUM 3.6 mmol/L 3.5-5.1 [facility] TCO2 27 mmol/L 20-33 [facility] ANION GAP 6.6 10.0-20.0 [facility] CA 7.6 mg/dL 8.3-10.7 [facility] ALKALINE PHOS 63 U/L 45-117 [facility] TP 5.8 g/dL 6.0-7.8 [facility] ALB 2.8 g/dL 3.5-5.0 [facility] ESRD Dialysis patient Albumin reference range: 2.9-4.4 g/dL GL 3.0 g/dL 2.3-3.5 [facility] A/G 0.9 1.0-2.5 [facility] T. BILIRUBIN 0.2 mg/dL 0.1-1.1 [facility] [place] Total Bilirubin is n ot recommended forpatients undergoing treatment with eltrombopag (Promacta)due to the potential for falsely elevated results. ALTI 18 U/L 6-54 [facility] Patients taking Sulfasalazine and/or Sul fapyridine may havefalsely depressed ALT levels. Patients should be drawn forALT before the initial administration of either drug. AST 22 U/L 6-38 [facility] Patients taking Sulfasalazine and/or Sul fapyridine may havefalsely depressed AST levels. Patients should be drawn forAST before the initial administration of either drug. ID Date Data Source [id number] 12/05/2019 12:01:00 AM EDT [facility] james Name Value Range Interpretation Code Description Data [place] rce(s) Supporting Document(s) WBC 7.56 x10E3/uL 4.0-10.5 [facility] RBC 3.54 x10E6/uL 4.20-5.40 [facility] Hemoglobin 10.5 g/dL 12.0-16.0 [facility] Hematocrit 32.9 % 37.0-47.0 [facility] MCV 92.9 fL 81.0-99.0 [facility] MCH 29.7 pg 27.0-31.0 [facility] MCHC 31.9 g/dL 32.7-35.6 [facility] RDW 13.1 % 11.5-14.0 [facility] Platelet count 301 x10E3/uL 150-450 [facility] ital MPV 9.8 fl 6.9-9.5 [facility] Neutrophils 57.9 % 34-64 [facility] Lymphocytes 31.7 % 25-45 [facility] Monocytes 7.8 % 1.7-10.6 [facility] Eosinophils 1.9 % 0.4-7.0 [facility] Basophils 0.4 % 0.1-2.0 [facility] Imm. Gran. 0.3 % 0.1-2.0 [facility] Abs. Neutro. 4.38 x10E3/uL 1.2-7.6 [facility] Abs. Lymph. 2.40 x10E3/uL 1.0-3.5 [facility] Abs. [place]. 0.59 x10E3/uL 0.1-1.0 [facility] Abs. Eosin. 0.14 x10E3/uL 0.1-0.7 [facility] Abs. Baso. 0.03 x10E3/uL 0.0-0.1 [facility] Abs. Imm. Gran. 0.02 x10E3/uL 0.0-0.1 [facility] ANRBC% 0 % 0 [facility] ID Date Data Source [id number] 12/04/2019 11:12:00 PM EDT [facility] [address] [address]UGAMYOE AND PHYSICALPATIENT NAME: BRUNA LEE MR#: [id number] PHYSICIAN: BEHZAD HOGAN MDAUTHOR: Behzad Hogan MD DATE: 12/04/19 RM#: ICUHISTORY & PHYSICAL DATE: 12/04/19 : 87EVALUATION TIME: 2330HistoryChief Complaint/Admit ReasonOverdoseHistory of Presenting [id number] female history of drug abuse, stress-induced seizures, GERD,bilateral carpal tunnel, adjustment disorder with mixed anxiety and depression,PTSD, ADHD who presents as a transfer from [facility] for evaluation.Patient presented to the wellness clinic for evaluation for overdose andunconsciousness upon arrival at the wellness center patient reported that shehad injected with bath salts this morning and soon after became unconscious EMSwas called and patient was brought to the ED at [facility] for evaluation.At the ED [facility] patient received verbal stimuli and then [...] was negative for PE or dissection. [facility] was also hypotensive into the 80s systolic received a liter bolus andblood pressure improved into the low 90s to 100s. Patient was transferred [facility] for further management. I evaluated patient inthe ICU patient remains obtunded unable to give any history. Nurse reportedpatient woke up few times and was able to answer simple questions. Patient hadreceived flumazenil and Narcan and Ativan at [facility] before arrival [facility].Past Medical/Surgical HistoryPast Medical/Surgical HistoryMedical ProblemsAcute respiratory [...] obtain as patient is obtundedExamVital SignsVital Signs-24 [id number] 98.2Pulse 62Resp 16B/P 91/52B/P MeanPulse Ox 98O2 DeliveryO2 Flow [id number] ExaminationGeneral Appearance no acute distress, ObtundedHead normocephalicENT [...] % (auto) (0 %) 0ToxicologyLevetiracetam PendingLabs from [facility] reviewed.ImagingCT head done at [facility].Impression:No acute cranial abnormality.CT pulmonary angiogram done at [facility].Impression:No evidence of pulmonary embolic disease.Cardiology/EKGEKG: Done at [facility].Sinus rhythm rate of 83 bpm. Very minimal (less than 1 mm )ST depression inlead II, V4 and V5.Assessment/PlanDiagnosis/Problem1. Drug overdoseStatus AcuteA&PPatient injected bath salts and also reported taking Xanax and unknown amountof gabapentin. Expressed suicidal ideations as documented at [facility].-Poison control contacted.-Monitor on telemetry.-IV fluids.-Check troponins.-Monitor electrolytes.-Supportive care.2. Seizure disorderStatus ChronicOnset Date 12/20/18A&PCheck Keppra level continue Keppra as necessary.CQM VTE HISTORYVTE HISTORYPrior VTE? NoDATE SIGNED: 12/05/19 Electronically SignedTIME SIGNED: 0708 BEHZAD HOGAN MD Name Value Range Interpretation Code Description Data [facility] Supporting Document(s) ID Date Data Source [id number] 12/04/2019 11:26:00 PM EDT [facility] Name Value Range Interpretation Code Description Data [facility] Supporting Document(s) FGLU 80 mg/dL 70-110 [facility] ID Date Data Source [id number] 12/04/2019 09:28:00 PM EDT [facility] Patient: COME, BRUNA Observation Repor t - [facility].VisitID: [id number] [place] [address] [phone], FRegistration Date/Time: 12/04/2019 15:46 Weight:68.4 kg (E). [...] Name Value Range Interpretation Code Description Data [facility] Supporting Document(s) ID Date Data Source [id number] 12/04/2019 08:43:00 PM EDT [facility] [...] rce(s) Supporting Document(s) ID Date Data Source [id number] 12/04/2019 07:09:00 PM EDT [facility] Name Value Range Interpretation Code Description Data [facility] Supporting Document(s) SARS COV2 TRP [facility] This lab was ordered by [facility] and reported by [facility] Laboratory. ID Date Data Source [id number] 12/04/2019 08:26:00 PM EDT [facility] LONNIEORDER [id number] Name Value Range Interpretation Code Description Data [place] rce(s) Supporting Document(s) Adenovirus Not Detected Detected Not [facility] ospital Coronavirus 229E Not Detected Detected Not [facility] Coronavirus HKU1 Not Detected Detected Not [facility] Coronavirus NL63 Not Detected Detected Not [facility] Coronavirus OC43 Not Detected Detected Not [facility] Sars Cov 2 Not Detected Detected Not [facility] Metapneumovirus Not Detected Detected Not [facility] Human Rhinovirus Not Detected Detected Not [facility] Influenza A Not Detected Detected Not [facility] Influenza B Not Detected Detected Not [facility] Parainfluenza Virus 1 Not Detected Detected Not [facility] Parainfluenza Virus 2 Not Detected Detected Not [facility] Parainfluenza Virus 3 Not Detected Detected Not [facility] Parainfluenza Virus 4 Not Detected Detected Not [facility] Respiratory Syncytial Virus Not Detected Detected Not [facility] Bordetella parapertus ([id number]) Not Detected Detected Not [facility] Bordetella pertussis (ptxP) Not Detected Detected Not [facility] Chlamydia pneumoniae Not Detected Detected Not [facility] Mycoplasma pneumoniae Not Detected Detected Not [facility] The Above results have been determined b y using the As Seen on TVArray system.FilmArray is an automated in vitro diagnostic system thatutilizes nested multiplex Polymerase Chain Reaction (PCR)and high-resolution melting analysis to detect and identifymultiple nucleic acid targets from clinical specimens. ID Date Data Source [id number] 12/04/2019 06:58:00 PM EDT [facility] CT Chest and CT Pulmonary Angiogram [...] Name Value Range Interpretation Code Description Data [facility] Supporting Document(s) ID Date Data Source [id number] 12/04/2019 06:56:00 PM EDT [facility] DATE OF EXAMINATION: 12/04/2019 18:03 EDT [...] Name Value Range Interpretation Code Description Data [facility] Supporting Document(s) ID Date Data Source [id number] 12/04/2019 05:47:00 PM EDT [facility] TSYSORDER [id number] Name Value Range Interpretation Code Description Data [facility] Supporting Document(s) URINE AMPHETAMINES NEGATIVE <1000 ng/mL [facility] pital THC,URINE NEGATIVE <50 ng/mL [facility] URINE BARBITURATES NEGATIVE <300 ng/mL [facility] ital PCP,URINE NEGATIVE <25 ng/mL [facility] COCAINE, URINE NEGATIVE <300 ng/mL [facility] URINE,OPIATES NEGATIVE <300 ng/mL [facility] URINE,TCA POSITIVE <1000 ng/mL H [facility] URINE BENZODIAZEPINES NEGATIVE <300 ng/mL [facility] THESE TESTS ARE PERFORMED USING AN IMMU NOASSAY FOR THEQUALITATIVE DETERMINATION OF THE PRESENCE OF THE MAJORMETABOLITES OF DRUGS OF ABUSE. THESE TESTS ARE ONLY ASCREENING AND NOT CONFIRMATORY. CLINICAL CONSIDERATION ANDPROFESSIONAL JUDGMENT MUST BE APPLIED TO ANY DRUG OF ABUSETEST RESULT. ID Date Data Source [id number] 12/04/2019 05:30:00 PM EDT [facility] TSYSORDER [id number] Name Value Range Interpretation Code Description Data [place] rce(s) Supporting Document(s) HCG URINE NEGATIVE NEGATIVE [facility] ID Date Data Source [id number] 12/04/2019 05:39:00 PM EDT [facility] TSYSORDER [id number] Name Value Range Interpretation Code Description Data [place] rce(s) Supporting Document(s) URINE COLOR. LIGHT YELLOW [facility] URINE APPEARANCE CLEAR [facility] URINE GLUCOSE (UA) NEGATIVE mg/dL NEGATIVE [facility] URINE BILIRUBIN NEGATIVE NEGATIVE [facility] URINE KETONE NEGATIVE mg/dL NEGATIVE [facility] SPECIFIC GRAVITY,URINE 1.010 1.001-1.035 [facility] URINE BLOOD NEGATIVE NEGATIVE [facility] PH,URINE 7.5 5.0-9.0 [facility] URINE PROTEIN NEGATIVE mg/dL NEGATIVE [facility] URINE UROBILINOGEN NORMAL(0.2-1) mg/dL 0-1 [facility] URINE NITRATE NEGATIVE NEGATIVE [facility] URINE LEUKOCYTE ESTERASE NEGATIVE NEGATIVE [facility] ID Date Data Source [id number] 12/04/2019 06:09:00 PM EDT [facility] Name Value Range Interpretation Code Description Data [place] rce(s) Supporting Document(s) CKMB 1.8 ng/ml 0.0-3.6 [facility] ID Date Data Source [id number] 12/04/2019 04:47:00 PM EDT [facility] Name Value Range Interpretation Code Description Data [place] rce(s) Supporting Document(s) SALICYLATE 3.5 mg/dL 2.8-20.0 [facility] ID Date Data Source [id number] 12/04/2019 04:47:00 PM EDT [facility] Name Value Range Interpretation Code Description Data [place] rce(s) Supporting Document(s) ETHYL ALCOHOL 0.00 % 0-0.01 [facility] ID Date Data Source [id number] 12/04/2019 04:47:00 PM EDT [facility] Name Value Range Interpretation Code Description Data [place] rce(s) Supporting Document(s) ACETAMINOPHEN LEVEL < 2.0 mcg/mL 10-30 L [facility] ospital ID Date Data Source [id number] 12/04/2019 04:47:00 PM EDT [facility] Name Value Range Interpretation Code Description Data [place] rce(s) Supporting Document(s) GLUCOSE 81 mg/dL 74-106 [facility] BLOOD UREA NITROGEN 10 mg/dL 7-18 [facility] ital CREATININE 0.7 mg/dL 0.6-1.0 [facility] SODIUM 139 mmol/L 136-145 [facility] POTASSIUM 4.3 mmol/L 3.5-5.1 [facility] CHLORIDE 102 mmol/L 98-107 [facility] CO2 33 mmol/L 21-32 H [facility] CALCIUM 9.2 mg/dL 8.5-10.1 [facility] ANION GAP 4.0 mmol/L 5-12 L [facility] GLOMERULAR FILTRATION RATE >90 mL/min [facility] GFR IS CALCULATED IN mL/min/1.73m2 LISANDRA L FUNCTION: >90MILDLY DECREASED: 60-89MILDY TO MODERATELY DECREASED: 45-59 MODERATELY TO SEVERELY DECREASED: 30-44SEVERELY DECREASED: 15-29RENAL FAILURE: <15 AST 40 U/L 15-37 H [facility] ALT 27 U/L 12-78 [facility] ALKALINE PHOSPHATASE 68 U/L 46-116 [facility] pital TOTAL BILIRUBIN 0.3 mg/dL 0.2-1.0 [facility] TOTAL PROTEIN 7.4 g/dl 6.4-8.2 [facility] ALBUMIN 3.9 gm/dL 3.4-5.0 [facility] ID Date Data Source [id number] 12/04/2019 04:46:00 PM EDT [facility] TSYSORDER [id number] Name Value Range Interpretation Code Description Data [place] rce(s) Supporting Document(s) AMMONIA 39 umol/L 11-32 H [facility] ID Date Data Source [id number] 12/04/2019 04:19:00 PM EDT [facility] TSYSORDER [id number] Name Value Range Interpretation Code Description Data [place] rce(s) Supporting Document(s) WHITE BLOOD COUNT 9.8 K/mm3 4.0-10.0 [facility] RED BLOOD COUNT 4.11 M/mm3 4.00-5.50 [facility] HEMOGLOBIN 12.3 gm/dL 12.0-16.0 [facility] HEMATOCRIT 37.9 % 36.0-48.8 [facility] MEAN CELL VOLUME 92.2 fl 80-96 [facility] MEAN CORPUSCULAR HEMOGLOBIN 29.9 pg 27.0-31.0 [facility] MEAN CORPUSCULAR HGB CONC 32.5 g/dl 32.0-36.0 [facility] RED CELL DISTRIBUTION WIDTH 13.0 % 10.0-14.5 [facility] PLATELET COUNT 368 K/mm3 172-450 [facility] MEAN PLATELET VOLUME 9.5 fl 9.0-13.0 [facility] pital GRAN % 71.0 % 50-80.0 [facility] IG% 0.2 % 0.0-0.2 [facility] LYMPH % 20.5 % 25.0-50.0 L [facility] MONO % 7.1 % 2.0-10.0 [facility] EOS % 1.0 % 0-5.0 [facility] BASO % 0.2 % 0.0-2.0 [facility] GRAN # 7.0 K/mm3 2.0-8.00 [facility] IG# 0.0 K/mm3 0.0-0.2 [facility] LYMPH # 2.0 K/mm3 1.0-5.0 [facility] MONO # 0.7 K/mm3 0.10-1.20 [facility] EOS # 0.1 K/mm3 0.0-0.5 [facility] BASO # 0.0 K/mm3 0.0-0.2 [facility] ID Date Data Source [id number] 12/11/2019 08:09:00 PM EDT [facility] l Name Value Range Interpretation Code Description Data [place] rce(s) Supporting Document(s) LEVETIRACETAM, S <1.0 ug/mL 10.0-40.[address] [facility] al Verified by repeat analysisThis test was developed and its performance characteristicsdetermined by [employer]. It has not been cleared orapproved by the Food and Drug Administration.Performed at: [address] [id number] Director: Robyn Julio MD, Phone: [phone] ID Date Data Source [id number] 12/11/2019 08:05:00 PM EDT [facility] Name Value Range Interpretation Code Description Data [place] rce(s) Supporting Document(s) Levetiracetam, S 10.0-40.0 Below low normal [facility] Verified by repeat analysisThis test was developed and its performance characteristicsdetermined by [facility]. It has not been cleared or approvedby the Food and Drug Administration. ID Date Data Source [id number] 12/04/2019 05:04:00 PM EDT [facility] TSYSORDER [id number] Name Value Range Interpretation Code Description Data [place] rce(s) Supporting Document(s) DDIMER 0.74 mg/LFEU 0.19-0.60 H [facility] ID Date Data Source [id number] 12/04/2019 12:00:00 AM EDT [facility] Name Value Range Interpretation Code Description Data [place] rce(s) Supporting Document(s) 2019 Novel Coronavirus RNA [facility] This lab was ordered by [facility] L aboratory and reported by [facility]. ID Date Data Source [id number] 11/07/2019 12:19:00 AM EDT [facility] 1 OrderSheet [facility] Emergency Department [address] [place] [address] Phone #: ext- [phone] 11/07/2019 00:19 Patient: BRUNA LEE Sex: F : 1985 Age: 34yWEIGHT:78.9 kg (S)ALLERGIES: Penicillins, Sulfa AntibioticsCHIEF COMPLAINT: nauseaDIAGNOSIS: Drug abuse, Nausea, Normal Exam, AnxietyLAB ORDERSOrder Description Priority Entered Acknowledged [facility] 01:01 11/07/2019 Ack'd: [...] Dayana, Evonne Maldonado R.N.x1) M.D.; 2 OrderSheet [facility] Emerg ency Department [address] [place] [address] Phone #: ext- [phone] 11/07/2019 00:19 Patient: BRUNA LEE Sex: F : 1985 Age: 34yGENERAL ORDERSOrder Description Priority Entered Acknowledged Initialed[Electronically signed by Mara Gonzalez R.N. (11/07/2019)][Electronically signed by Evonne Hagen M.D. (05:23 11/07/2019)][Electronically locked by Mara Gonzalez R.N. (11/07/2019)] Name Value Range Interpretation Code Description Data [place] rce(s) Supporting Document(s) ID Date Data Source [id number] 11/07/2019 12:19:00 AM EDT [facility] 1 Medication Reconciliation Report [facility] Emergency Department [address] [place] [address] Phone #: ext- [phone] 11/07/2019 00:19 Patient: [...] rce(s) Supporting Document(s) ID Date Data Source [id number] 11/07/2019 12:19:00 AM EDT [facility] 1 Medication Administration Record [facility] Emergency Department [address] [place] [address] Phone #: ext [phone] 11/07/2019 00:19 Patient: BRUNA LEE Sex: F : 1985 Age: 34yWeight: 78.9 kgHeight/Length: 60 inBMI: 34ALLERGIES: Penicillins, Sulfa Antibiotics Date/Time Medication Administered Medication OrderedStart IV NS NS IV 1000 mL Bolus: : Bolus [id number] 11/07/2019 Dose: IV Fluids mL (X1)Meme Maldonado RRandy Rate: 999 mL/hr---- Dispensed: 1000 mL bagStop Site: #1 left wrist03:55 11/07/2019Mara Gonzalez R.N.Given ZOFRAN [IVP] (ONDANSETRON HCL) Zofran 4 mg IVP X 1 dose: 4 mg02:22 11/07/2019 Dose: 4 mg IVP (NOW x1)Meme Maldonado RRandy Site: #1 left wrist Name Value Range Interpretation Code Description Data [place] rce(s) Supporting Document(s) ID Date Data Source [id number] 11/07/2019 12:19:00 AM EDT [facility] 1 General Instructions [facility] Emergency Department [address] [place] [address] Phone #: ext [phone] 11/07/2019 00:19 Patient: BRUNA LEE Sex: F [...] to plan of care. 2 General Instructions [facility] Emergency Department [address] [place] [address] Phone #: ext- [phone] 11/07/2019 00:19 Patient: [...] Tiredness Inability to sleep 3 General Instructions [facility] Emergency Department [address] [place] [address] Phone #: ext- [phone] 11/07/2019 00:19 Patient: [...] help you manage stress. 4 General Instructions [facility] Emergency Department [address] [place] [address] Phone #: ext- [phone] 11/07/2019 00:19 Patient: [...] relieved by rest and mild pain reliever [phone] [employer]. [address] [place] [address], [place] [address]. All rights reserved. This information is not intended as asubstitute for professional medical care. Always follow your healthcare professional's instructions. You have been given the following additional information: Anxiety Reaction(Electronically signed by Evonne Hagen M.D. 11/07/2019 05:23) Name Value Range Interpretation Code Description Data [place] rce(s) Supporting Document(s) ID Date Data Source [id number] 11/07/2019 12:19:00 AM EDT [facility] 1 Clinical Report - Nurses [facility] Emergency Department [address] [place] [address] Phone #: ext- [phone] 11/07/2019 00:19 Patient: BRUNA LEE Sex: F : 1985 Age: 34yTRIAGEHistorian: EMS and patient.Triage time: 00:24 11/07/2019.Chief Complaint: NAUSEA and ("face swelling").Onset. (states that it has been going on all day.). ( states that she has been sleeping a lot and used Molly2 days ago. 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 --00:27 11/07/19 [...] last month. 2 Clinical Report - Nurses [facility] Emergency Department [address] [place] [address] Phone #: ext- [phone] 11/07/2019 00:19 Patient: [...] pump. Allergies 3 Clinical Report - Nurses [facility] Emergency Department [address] [place] [address] Phone #: [phone] ext- [phone] 11/07/2019 00:19 Patient: BRUNA LEE Sex: F [...] patient is calm and resting quietly. ( Keller provided. Reassurance given to pt. Lights dimmed. [...] Patient verbalized understanding. Written instructions provided in [place]gu[place]. The patient was discharged by the physician. 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 2 Clinical Report - Physicians/Mid Levels [facility] Emergency Department [address] [place] [address] Phone #: ext- [phone] 11/07/2019 00:19 Patient: [...] (Reference) 3 Clinical Report - Physicians/Mid Levels [facility] Emergency Department [address] [place] [address] Phone #: ext- [phone] 11/07/2019 00:19 Patient: [...] Male GFR Interprentation 20-49 yrs >60 mL/min Tchpzn92-50 yrs >56 mL/min Normal 60- 69 yrs >49 mL/min Normal 70-79yrs>42 mL/min Normal 80 and above >35 mL/min Normal Female GFRInterpretation 20-39 yrs >60 mL/min Normal 40-49 yrs >58 mL/minNormal 50-59 yrs >51 mL/min Normal 60-69 yrs >45 mL/min Normal 4 Clinical Report - Physicians/Mid Levels [facility] Emergency Department [address] [place] [address] Phone #: ext- [phone] 11/07/2019 00:19 Patient: BRUNA LEE Sex: F : 1985 Age: 22m15-72 yrs >39 mL/min Normal 80 and above >32 mL/min NormalBeta-HCG, Qual Serum: (JENN: 11/07/2019 02:15) ( NmgRcvd 11/07/2019 03:20) Final results Test Result Flag Units (Reference) HCG SERUM QUAL NEGATIVE (NORMAL: NEGAT HCG SERUM QL REENTER NEGATIVE (NORMAL: NEGAT { KIT LOT # [id number] ){ KIT EXP [id number] ){ PROCEDURAL CONTROL VALID)CPK: (JENN: 11/07/2019 02:15) [...] PRESUMPTIVE POSITIVE CONFIRMATION WILL BE PERFORMED AT [facility].Urinalysis: (JENN: 11/07/2019 02:00) ( MsgRcvd 11/07/2019 02:28) [...] Indicate 5 Clinical Report - Physicians/Mid Levels [facility] Emergency Department [address] [place] [address] Phone #: ext- [phone] 11/07/2019 00:19 Patient: BRUNA LEE Sex: F [...] was requested by: Evonne Hagen Reference #: [id number] Others' Prescriptions Patient Name: Bruna LeeBirth Date: 1985 Address: [address] [place] [id number]: Female Rx Written Rx Dispensed Drug Quantity [...] 8 mg-2 mg sl film 56 [facility] [place] [facility] [place] [facility] 11/12/2018 11/12/2018 suboxone 8 mg-2 mg sl film 56 28 [facility] [place] [facility] * - Drugs marked with an asterisk are compound drugs. If the compound drug is made up of more than one controlled substance, then each controlled substance will be a separate row in the table. 6 Clinical Report - Physicians/Mid Levels [facility] Emergency Department [address] [place] [address] Phone #: ext- [phone] 11/07/2019 00:19 Patient: [...] Oral. 7 Clinical Report - Physicians/Mid Levels [facility] Emergency Department [address] [place] [address] Phone #: ext- [phone] 11/07/2019 00:19 Patient: [...] rce(s) Supporting Document(s) ID Date Data Source [id number] 11/07/2019 03:20:00 AM EDT [facility] Name Value Range Interpretation Code Description Data [place] rce(s) Supporting Document(s) HCG SERUM QUAL NEGATIVE NORMAL: NEGATIVE [facility] HCG SERUM QL REENTER NEGATIVE NORMAL: NEGATIVE [facility] { KIT LOT # [id number] ){ KIT EXP DATE 12-08-20 ){ PROCEDURAL CONTROL VALID ) ID Date Data Source [id number] 11/07/2019 03:15:00 AM EDT [facility] Name Value Range Interpretation Code Description Data [place] rce(s) Supporting Document(s) Creatine kinase [Enzymatic activity/volume] in Serum or Plasma 3 13 U/L 30 - 170 H [facility] ID Date Data Source [id number] 11/07/2019 03:14:00 AM EDT [facility] Name Value Range Interpretation Code Description Data [place] rce(s) Supporting Document(s) COMPREHENSIVE METABOLIC PANEL [facility] COMPREHENSIVE METABOLIC PANEL Sodium [Moles/volume] in Serum or Plasma 140 mEq/L 134 - 153 [facility] Potassium [Moles/volume] in Serum or Plasma 3.8 mEq/L 3.6 - 5.0 [facility] Chloride [Moles/volume] in Serum or Plasma 100 mEq/L 98 - 107 [facility] Carbon dioxide, total [Moles/volume] in Serum or Plasma 30 MEQ/L 22 - 30 [facility] Glucose [Mass/volume] in Serum or Plasma 98 MG/DL 65 - 110 [facility] BUN 14 MG/DL 7 - 21 [facility] Creatinine [Mass/volume] in Serum or Plasma 0.7 MG/DL 0.7 - 1.5 [facility] BUN/CREAT 20 8 - 27 [facility] Protein [Mass/volume] in Serum or Plasma 5.9 G/DL 6.3 - 8.2 L [facility] Albumin [Mass/volume] in Serum or Plasma 3.6 G/DL 3.9 - 5.0 L [facility] Globulin [Mass/volume] in Serum by calculation 2.3 GM/DL 2.4 - 3.2 L [facility] A/G RATIO 1.6 0.8 - 2.0 [facility] Calcium [Mass/volume] in Serum or Plasma 9.2 MG/DL 8.4 - 10.2 [facility] Bilirubin.total [Mass/volume] in Serum or Plasma <0.7 MG/DL 0.2 - 1.3 [facility] Alkaline phosphatase [Enzymatic activity/volume] in Serum or Plasma 62 U/L 38 - 126 [facility] Aspartate aminotransferase [Enzymatic activity/volume] in Serum or Plasma 302 U/L 5 - 40 H [facility] Alanine aminotransferase [Enzymatic activity/volume] in Seru m or Plasma 125 U/L 7 - 56 H [facility] Anion gap 3 in Serum or Plasma 10.0 mmol/L 8.0 - 16.0 [facility] AGE 34 yrs [facility] al NON-AA GFR >60 mL/min [facility] ital AFR AMER GFR >60 mL/min [facility] Ho spital Male GFR In terprentation 20-49 [...] >32 mL/min Normal ID Date Data Source [id number] 11/07/2019 02:27:00 AM EDT [facility] Name Value Range Interpretation Code Description Data [place] rce(s) Supporting Document(s) CBC W/AUTOMATED DIFF [facility] COMPLETE BLOOD COUNT Leukocytes [#/volume] in Blood by Automated count 8.3 10^3/uL 4.2 - 1 1.0 [facility] Erythrocytes [#/volume] in Blood by Automated count 3.87 10^6/uL 4. 20 - 5.40 L [facility] Hemoglobin [Mass/volume] in Blood 11.6 g/dL 12.0 - 16.0 L [facility] Hematocrit [Volume Fraction] of Blood by Automated count 36.0 % 3 7.0 - 47.0 L [facility] Erythrocyte mean corpuscular volume [Entitic volume] by Auto mated count 93.0 fL 81.0 - 101 [facility] Erythrocyte mean corpuscular hemoglobin [Entitic mass] by Automated count 30.0 pg 27.0 - 34.0 [facility] Erythrocyte mean corpuscular hemoglobin concentration [Mass/volume] by Automated count 32.2 g/dL 31.0 - 36.0 [facility] Erythrocyte distribution width [Ratio] by Automated count 13.3 % 11.5 - 14.5 [facility] Platelets [#/volume] in Blood by Automated count 271 10^3/uL 150 - 45 0 [facility] Platelet mean volume [Entitic volume] in Blood by Automated count 9.5 fL 7.4 - 10.4 [facility] Neutrophils/100 leukocytes in Blood by Automated count 82.6 % 37. 0 - 80.0 H [facility] Lymphocytes/100 leukocytes in Blood by Manual count 14.3 % 25.0 - 40.0 L [facility] Monocytes/100 leukocytes in Blood by Automated count 1.6 % 3.0 - 8.0 L [facility] Eosinophils/100 leukocytes in Blood by Automated count 0.8 % 0.0 - 7.0 [facility] Basophils/100 leukocytes in Blood by Automated count 0.2 % 0.0 - 2.5 [facility] %IG 0.5 % 0.0 - 0.0 H [facility] %NRBC 0.0 % 0.0 - 0.0 [facility] al Neutrophils [#/volume] in Blood by Automated count 6.85 10^3/uL 2.00 - 6.90 [facility] Lymphocytes [#/volume] in Blood by Automated count 1.19 10^3/uL 0.60 - 3.40 [facility] Monocytes [#/volume] in Blood by Automated count 0.13 10^3/uL 0.00 - 0.90 [facility] Eosinophils [#/volume] in Blood by Automated count 0.07 10^3/uL 0.00 - 0.70 [facility] Basophils [#/volume] in Blood by Automated count 0.02 10^3/uL 0.00 - 0.20 [facility] #IG 0.04 10^3/uL 0.00 - 0.10 [facility]ital #NRBC 0.00 10^3/uL 0.00 - 0.00 [facility] ospital MANUAL DIFF NOT INDICATED [facility] RBC MORPH NOT INDICATED [facility] ID Date Data Source [id number] 11/07/2019 03:14:00 AM EDT [facility] Name Value Range Interpretation Code Description Data [place] rce(s) Supporting Document(s) DRUG SCREEN URINE [facility] URINE DRUG SCREEN Amphetamine [Presence] in Urine by Screen method PRESUMP POS LISANDRA L: NEGATIVE [facility] BARBITURATES NEGATIVE NORMAL: NEGATIVE [facility] BENZO NEGATIVE NORMAL: NEGATIVE [facility] COCAINE NEGATIVE NORMAL: NEGATIVE [facility] Tetrahydrocannabinol [Presence] in Urine NEGATIVE NORMAL: NEGATIVE [facility] OPIATES NEGATIVE NORMAL: NEGATIVE [facility] Phencyclidine [Presence] in Urine by Screen method NEGATIVE NOR MAL: NEGATIVE [facility] \\BLDo\\URINE DRUG SCR EEN INTERPRETATION\\BLDx\\ THE CUTOFFF LEVELS FOR DETECTION ARE FOLLOWS: AMPHETAMINES 1000 ng/ml BARBITUARATES 200 ng/ml BENZODIAZEPINES 100 ng/ml THC 50 ng/ml PHENCYCLIDINE 25 ng/ml OPIATES 300 ng/ml COCAINE 300 ng/ml ALL POSITIVES ARE CONSIDERED PRESUMPTIVE POSITIVE CONFIRMATION WILL BE PERFORMED AT PHYSICIAN REQUEST. ID Date Data Source [id number] 11/07/2019 02:27:00 AM EDT [facility] Name Value Range Interpretation Code Description Data [place] rce(s) Supporting Document(s) [facility] SOURCE R [facility] COLOR yellow NORMAL: Yellow [facility] ospital CLARITY clear NORMAL: Clear [facility] Specific gravity of Urine by Test strip 1.020 1.001 - 1.030 [facility] pH 6 5 - 9 [facility] al Glucose [Mass/volume] in Urine by Test strip NORM NORMAL: Negat [facility] Bilirubin.total [Presence] in Urine by Test strip NEG NORMAL: Negative [facility] Ketones [Presence] in Urine by Test strip NEG NORMAL: Negative [facility] Protein [Mass/volume] in Urine by Test strip NEG NORMAL: Negat [facility] Nitrite [Presence] in Urine by Test strip NEG NORMAL: Negative [facility] BLOOD NEG NORMAL: Negative [facility] Leukocyte esterase [Presence] in Urine by Test strip NEG LISANDRA L: Negative [facility] Urobilinogen [Mass/volume] in Urine by Test strip 1 less kenna n 1.0 mg/dL [facility] MICROSCOPIC Not Indicate [facility] ID Date Data Source [id number] 10/30/2019 10:27:00 AM EDT [facility] Name Value Range Interpretation Code Description Data [place] rce(s) Supporting Document(s) BG FASTING 132 mg/dL 70-100 H [facility] y Health TSH 0.526 microintl units/mL 0.358-3.740 N [facility] Family [facility] ID Date Data Source [id number] 10/30/2019 10:27:00 AM EDT [facility] Name Value Range Interpretation Code Description Data [place] rce(s) Supporting Document(s) HCT 37.6 % 36.0-47.0 N [facility] HGB 11.8 g/dL 12.0-15.5 L [facility] MCH 31.4 G/DL pg 32.0-36.5 L [facility] Health MCHC 29.9 PG % 27.0-33.0 N [facility] PLATELETS 209 10 10*3/mm3 150-450 N [facility] RBC 3.94 10 10*6/mm3 4.00-5.40 L [facility] RDW 12.6 % 11.5-14.5 N [facility] WBC TOTAL 4.5 4.0-10.0 N [facility] ID Date Data Source [id number] 10/13/2019 03:25:00 PM EDT [facility] Name Value Range Interpretation Code Description Data [place] rce(s) Supporting Document(s) HCT 40.7 % 36.0-47.0 N [facility] HGB 13.3 g/dL 12.0-15.5 [facility] MCH 32.7 G/DL pg 32.0-36.5 N [facility] MCHC 30.4 PG % 27.0-33.0 [facility] PLATELETS 288 10 10*3/mm3 150-450 N [facility] RBC 4.37 10 10*6/mm3 4.00-5.40 [facility] RDW 12.4 % 11.5-14.5 [facility] WBC TOTAL 8.7 4.0-10.0 [facility] ID Date Data Source [id number] 10/09/2019 02:09:00 AM EDT [facility] 1 OrderSheet [facility] Emergency Department [address] [place] [address] Phone #: ext- [phone] 10/09/2019 02:08 Patient: [...] rce(s) Supporting Document(s) ID Date Data Source [id number] 10/09/2019 02:09:00 AM EDT [facility] 1 Medication Reconciliation Report [facility] Emergency Department [address] [place] [address] Phone #: ext- [phone] 10/09/2019 02:08 Patient: [...] rce(s) Supporting Document(s) ID Date Data Source [id number] 10/09/2019 02:09:00 AM EDT [facility] 1 Medication Administration Record [facility] Emergency Department [address] [place] [address] Phone #: ext- [phone] 10/09/2019 02:08 Patient: BRUNA LEE Sex: F : 1985 Age: 34yWeight: 81.1 kgHeight/Length: 60 inBMI: 34.9ALLERGIES: Penicillins, Sulfa Antibiotics Date/Time Medication Administered Medication OrderedGiven IBUPROFEN [PO] Ibuprofen 800 mg PO X1 dose: 40809:39 10/09/2019 Dose: 800 mg Tablets PO mg (NOW x1)Meme Maldonado R.N. Name Value Range Interpretation Code Description Data [place] rce(s) Supporting Document(s) ID Date Data Source [id number] 10/09/2019 02:09:00 AM EDT [facility] 1 General Instructions [facility] Emergency Department [address] [place] [address] Phone #: ext [phone] 10/09/2019 02:08 Patient: BRUNA LEE Sex: F [...] INFORMATIONViral Pharyngitis (Sore Throat) 2 General Instructions [facility] Emergency Department [address] [place] [address] Phone #: ext- [phone] 10/09/2019 02:08 Patient: [...] glass of warm water. 3 General Instructions [facility] Emergency Department [address] [place] [address] Phone #: ext- [phone] 10/09/2019 02:08 Patient: [...] breathing or noisy breathing 4 General Instructions [facility] Emergency Department [address] [place] [address] Phone #: ext- [phone] 10/09/2019 02:08 Patient: BRUNA LEE Sex: F : 1985 Age: 34y Muffled voice New rash Other symptoms are getting worse [phone] [employer]. [address] [place] [address]. All rights reserved. This information is not intended as asubstitute for professional medical care. Always follow your healthcare professional's instructions. You have been given the following additional information: Pharyngitis, Viral(Electronically signed by Evonne Hagen M.D. 10/09/2019 03:51) Name Value Range Interpretation Code Description Data [place] rce(s) Supporting Document(s) ID Date Data Source [id number] 10/09/2019 02:09:00 AM EDT [facility] 1 Clinical Report - Nurses [facility] Emergency Department [address] [place] [address] Phone #: ext- [phone] 10/09/2019 02:08 Patient: BRUNA LEE Sex: F : 1985 Age: 34yTRIAGEHistorian: EMS and patient.Triage time: 02:08 10/09/2019.Chief Complaint: SORE THROAT.This started just prior to arrival. 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 (arthritis kind).EMS Treatment MACERATOR OPERATOR:See EMS report.SEPSIS SCREEN: SIRS Screen: heart rate greater than 90. Sepsis Screen negative. No suspected orconfirmed signs of infection present. --02:14 10/09/19 Meme Maldonado R.N.02:10/09/19. BP: 130/86. MAP: 100. HR: 105. RR: 18. O2 saturation: 100%. Temp: 98.5 F. Pain levelnow: 12/05. --02:14 10/09/19 Meme Maldonado R.N.Treatment MACERATOR OPERATOR:(Seen at [facility] for this issue within the [...] Maldonado R.N.AllergiesPenicillins.(hives) 2 Clinical Report - Nurses [facility] Emergency Department [address] [place] [address] Phone #: ext- [phone] 10/09/2019 02:08 [id number] Sex: F : 1985 Age: 34y Sulfa [...] Dental decay. 3 Clinical Report - Nurses [facility] Emergency Department [address] [place] [address] Phone #: ext- [phone] 10/09/2019 02:08 Patient: [...] Patient verbalized understanding. Written instructions provided in [place]. The patient was discharged by the physician. [...] rce(s) Supporting Document(s) ID Date Data Source [id number] 10/09/2019 02:09:00 AM EDT [facility] [facility] 1 Clinical Report - Physicians/Mid Levels [facility] Emergency Department [address] [place] [address] Phone #: ext- [phone] 10/09/2019 02:08 Patient: [...] (per EMS, pt is well known to [facility] ER for multiple ER visits for multiple somatic and psychiatric complaints; tonight, she complains of sore throat, hoarse voice, bugs on her skin, etc.; pt has therapist in [place]). Similar symptoms previously. Patient has had similar [...] Medications: 2 Clinical Report - Physicians/Mid Levels [facility] Emergency Department [address] [place] [address] Phone #: ext- [phone] 10/09/2019 02:08 Patient: [...] PROCEDURAL CONTROL VALID ){ KIT LOT # [id number] ){ KIT EXP DATE [id number] )The 3 Clinical Report - Physicians/Mid Levels [facility] Emergency Department [address] [place] [address] Phone #: ext- [phone] 10/09/2019 02:08 Patient: [...] was requested by: Evonne Hagen Reference #: [id number] Others' Prescriptions Patient Name: Bruna LeeBirth Date: 1985 Address: [address] [place] [id number]: Female Rx Written Rx Dispensed Drug Quantity [...] film 56 28 MoehJose J hopson MD [facility] 05/01/2019 05/01/2019 buprenorphine-naloxone 8-2 [...] #15 4 Clinical Report - Physicians/Mid Levels [facility] Emergency Department [address] [place] [address] Phone #: [phone] 10/09/2019 02:08 Patient: BRUNA LEE Sex: F [...] unknown*. 5 Clinical Report - Physicians/Mid Levels [facility] Emergency Department [address] [place] [address] Phone #: ext- [phone] 10/09/2019 02:08 Patient: [...] Name Value Range Interpretation Code Description Data [facility] Supporting Document(s) ID Date Data Source [id number] 10/09/2019 03:02:00 AM EDT [facility] Name Value Range Interpretation Code Description Data [facility](s) Supporting Document(s) RAPID STREP NEGATIVE NORMAL: NEGATIVE [facility] RAPID STREP REENTER NEGATIVE NORMAL: NEGATIVE [facility] { PROCEDURAL CONTROL VALID ){ KIT LOT # [id number] ){ KIT EXP DATE 148220 )The Strep A 2 assay utilizes isothermal [...] basis for treatment. ID Date Data Source [id number] 09/22/2019 02:34:28 PM EDT [facility] Measurements & CalculationsHeight: 61 inches (5 [...] (ER) or urgent care clinic? Yes - [facility] Have you seen another healthcare provider? Yes - [facility] Have you seen a dentist? NoIntake [...] this is different. Sees [facility] for her mental health issues (schizophrenia) and feels that this is going well.HPI performed by: Francesco Ritchie MD, September 22, 2019 2:52 PMTransitions of Care InboundProblem ReviewProblem List was reviewed and/or updated during this visit.Medication Reconciliation & ReviewMedication List was reviewed and/or updated during this visit, including review of any xgid-eoj-sriwkvd medications, herbal therapies, and/or supplements.Allergy ReviewAllergy List [...] Plan Problems:Added: Hematemesis - cause unknown (ICD-578.0) (QGU93-Y78.0) Assessment: Instructions: Currently asymptomatic but worrisome enough to warrant further workup.Avoid NSAIDs and refer to GI.Return to ER if this occurs again.Assessed:Peripheral neuropathy (ICD-356.9) (TJO45-U43.9) Assessment: Instructions: I am not sure where [...] (Critical)Orders:Adult - Ofc Vst, EST, Level III [CPT-42201] Gastroenterology Consult [CPT-93010] Medications:GABAPENTIN 400 MG ORAL CAPSULE (GABAPENTIN) take one tablet by mouth three times daily as needed #90[Capsule] x 0 Route:ORAL Entered and Authorized by: Francesco Ritchie MD Method used: Electronically to [facility] (retail) [address] [place] [address] Note to Pharmacy: Route: ORAL; Indications: PERIPHERAL NEUROPATHY;BILATERAL CARPAL TUNNEL SYNDROME RxID: [id number] 1000 MG ORAL TABLET (LEVETIRACETAM) 1 pill po bid #60[Tablet] x 0 Route:ORAL Entered and Authorized by: Francesco Ritchie MD Method used: Electronically to [facility] (retail) [address] [place] [address] Note to Pharmacy: Route: ORAL; RxID: [id number] SUCCINATE 50 MG ORAL TABLET (SUMATRIPTAN SUCCINATE) take one tab po at the onset of headache. may repeat dose x one if no releif after two hours. #15[Tablet] x 0 Entered and Authorized by: Francesco Ritchie MD Method used: Electronically to [facility] (retail) [address] [place] [address] RxID: [id number] OMEPRAZOLE 20 MG ORAL TABLET DELAYED RELEASE (OMEPRAZOLE) One tablet by mouth every day #30[Tablet] x 2 Route:ORAL Entered and Authorized by: Francesco Ritchie MD Method used: Electronically to [facility] (retail) [address] [place] [address] Note to Pharmacy: Route: ORAL; RxID: [id number] DOXYCYCLINE MONOHYDRATE 100 MG ORAL TABLET (DOXYCYCLINE MONOHYDRATE) take one tablet by mouth twice daily x 5 days #10[Tablet] x 0 Route:ORAL Entered by: Demetria Elliott MA Authorized by: Mavis DIEGO Method used: Electronically to [facility] (retail) [address] [place] [address] RxID: [id number] signed by Francesco Ritchie MD on 09/22/2019 at 5:42 PM Name Value Range Interpretation Code Description Data [facility] r[facility](s) Supporting Document(s) ID Date Data Source [id number] 09/10/2019 10:45:00 PM EDT [facility] Name Value Range Interpretation Code Description Data [place] r[facility](s) Supporting Document(s) BG FASTING 96 mg/dL 70-100 [address] [facility] ID Date Data Source [id number] 09/10/2019 10:45:00 PM EDT [facility] Name Value Range Interpretation Code Description Data [place] rce(s) Supporting Document(s) HCT 37.4 % 36.0-47.0 [facility] HGB 12.1 g/dL 12.0-15.5 [facility] Health MCH 32.4 G/DL pg 32.0-36.5 N [facility] MCHC 30.2 PG % 27.0-33.0 [facility] PLATELETS 244 10 10*3/mm3 150-450 [facility] Family [facility] RBC 4.01 10 10*6/mm3 4.00-5.40 [facility] RDW 12.8 % 11.5-14.5 [facility] WBC TOTAL 4.9 4.0-10.0 [facility] Health ID Date Data Source [id number] 05/20/2019 11:42:55 AM EDT [facility] Measurements & CalculationsHeight: 61 inches (5 [...] you seen another healthcare provider? Yes - [facility] Have you seen a dentist? NoRate [...] during this visit, including review of any mllm-jmq-wjcmmoo medications, herbal therapies, and/or supplements.Allergy ReviewAllergy List [...] Problems:Added: Phlebitis and thrombophlebitis of unspecified site (DCQ03-C05.9): right AC and right tibia Assessment: Instructions: May continue warm compresses 3-4 times daily as needed. Please try to keep extremities elevated. We have sent a prescription to your pharmacy today. Please take medication as prescribed. Please report any major side effects.Phlebitis and thrombophlebitis of unspecified site (CQK09-F73.9): right AC and right tibia Assessment: right foot and right forearmAssessed:Tobacco use (ICD-305.1) (WHR99-F89.0) Assessment: Instructions: Please continue to try to quit smoking.Health Screening (ICD-V70.0) (ZWQ91-E01.9) Assessment: Instructions: Fasting labs ordered for you today. Please return prior to your next visit to have labs drawn. Please fast for 8-10 hours prior.Substance abuse (ICD-305.90) (ISG50-K08.10) Assessment: Instructions: Please try to avoid the [...] (Critical)BACTRIM (Critical)* SULFA ANTIBIOTICS (Critical)Orders:COMP METABOLIC PANEL [CPT-76307] CBC W/DIFF [CPT- 48178] HgBA1c [CPT-06006] LIPID PANEL [CPT-14243] TSH [CPT-54150] T-4 free [CPT- 12113] Vitamin D 250H Unspecified [CPT-21681] URINALYSIS [CPT-56104] VITAMIN B- 12 [CPT-71113] Folate (Folic Acid Serum) [CPT-12112] IRON [CPT-49780] Adult - Ofc Vst, EST, Level III [CPT-08026] Follow-Up Return to clinic: 2-3 weeks for follow up Additional Follow-Up: If symptoms worsen, please return to clinic or the ERClinical Visit Summary CompletedMedications:DOXYCYCLINE MONOHYDRATE 100 MG ORAL TABLET (DOXYCYCLINE MONOHYDRATE) take one tablet by mouth twice daily x 5 days #10[Tablet] x 0 Route:ORAL Entered and Authorized by: Mavis DIEGO Method used: Electronically to [facility] (retail) [address] [place] [address] Note to Pharmacy: Route: ORAL; Indications: PHLEBITIS AND THROMBOPHLEBITIS OF UNSPECIFIED SITE RxID: [id number] signed by Mavis DIEGO on 05/24/2019 at 11:37 PM ____ Name Value Range Interpretation Code Description Data [place] rce(s) Supporting Document(s) Procedure Social History Code Duration Value Status Description Data Source(s ) Smoking 03/01/2020 12:00:00 AM EST Current Smoker completed Curre nt Smoker eCW1 ([facility]) Smoking 03/01/2020 12:00:00 AM EST [...] rate 18 /min 18 /min eCW1 ([facility]) Heart rate 93 /min 93 /min eCW1 ([facility]) Body mass index (BMI) [Ratio] 35.27 kg/m2 35.27 kg/m2 eCW1 ([facility]) Body weight 180.6 [lb_av] 180.6 [lb_av] eCW1 ([facility]) Body height 60 [in_i] 60 [in_i] eCW1 ([facility][note 2]) Oxygen saturation in Arterial blood by Pulse oximetry 97 % 97 % eCW1 ([facility]) Respiratory rate 18 /min 18 /min eCW1 ([facility]) Heart rate 89 /min 89 /min eCW1 ([facility]) Body mass index (BMI) [Ratio] 36.48 kg/m2 36.48 kg/m2 eCW1 ([facility]) Body weight 186.8 [lb_av] 186.8 [lb_av] eCW1 ([facility]) Body height 60 [in_i] 60 [in_i] eCW1 ([facility][note 2]) Body height 60 [in_i] 60 [in_i] eCW1 ([facility][note 2]) Oxygen saturation in Arterial blood by Pulse oximetry 98 % 98 % eCW1 ([facility]) Respiratory rate 18 /min 18 /min eCW1 ([facility]) Heart rate 86 /min 86 /min eCW1 ([facility]) Body temperature 98.0 [degF] 98.0 [degF] eCW1 ( [facility]) Body mass index (BMI) [Ratio] 32.10 kg/m2 32.10 kg/m2 eCW1 ([facility]) Body weight 164.4 [lb_av] 164.4 [lb_av] eCW1 ([facility]) Oxygen saturation in Arterial blood by Pulse oximetry 99 % 99 % eCW1 ([facility]) Respiratory rate 18 /min 18 /min eCW1 ([facility]) Heart rate 100 /min 100 /min eCW1 ([facility]) Body temperature 98.7 [degF] 98.7 [degF] eCW1 ( [facility]) Body mass index (BMI) [Ratio] 30.70 kg/m2 30.70 kg/m2 eCW1 ([facility]) Body weight 157.2 [lb_av] 157.2 [lb_av] eCW1 ([facility]) Body height 60 [in_i] 60 [in_i] eCW1 ([facility][note 2]) ID Date Data Source [id number] 12/26/2019 01:56:00 PM EDT [facility] Name Value Range Interpretation Code Description Data Source(s) WEIGHT 72.3 kilos 72.3 kilos [facility] HEIGHT 152.4 centimeters 152.4 centimeters [facility] WEIGHT 75 kilos 75 kilos [facility] HEIGHT 152.4 centimeters 152.4 centimeters [facility] ID Date Data Source [id number] 12/10/2019 06:07:00 AM EDT [facility] Name Value Range Interpretation Code Description Data Source(s) WEIGHT 68 kilos 68 kilos [facility] HEIGHT 152.4 centimeters 152.4 centimeters [facility] WEIGHT 68.4 kilos 68.4 kilos [facility] HEIGHT 152.4 centimeters 152.4 centimeters [facility] ID Date Data Source [id number] 12/08/2019 01:43:00 PM EDT [facility] Name Value Range Interpretation Code Description Data Source(s) WEIGHT 75 kilos 75 kilos [facility] HEIGHT 152.4 centimeters 152.4 centimeters [facility] ID Date Data Source [id number] 12/08/2019 01:43:00 PM EDT [facility] Name Value Range Interpretation Code Description Data Source(s) WEIGHT 74 kilos 74 kilos [facility] HEIGHT 160.02 centimeters 160.02 centimeter [facility] Patient Treatment Plan of Care Planned Activity [...]
--- OUTSIDE RECORDS SUMMARY | 2020-03-29 19:59 | CCD ---
Author Author [facility] Organization [facility] Address Unknown Phone Unavailable Care Team Providers Care Community Support Associate Name Role Phone Kori FLORES Unavailable Unavailable [...] Jeremie HOGAN MD Unavailable Unavailable JESICA, @ [facility] Unavailable Unavailable BEHZAD HOGAN MD Unavailable Unavailable Ching, Reginah W Kassidy ELEVATOR OPERATOR SERVICE-C Unavailable Unavailabl e Ching, Reginah W Kassidy ELEVATOR OPERATOR SERVICE-C Unavailable Unavailabl e Ching, Reginah W Kassidy ELEVATOR OPERATOR SERVICE-C Unavailable Unavailabl e Ching, Reginah W Kassidy ELEVATOR OPERATOR SERVICE-C Unavailable Unavailabl e Ching, Reginah W Kassidy ELEVATOR OPERATOR SERVICE-C Unavailable Unavailabl e Ching, Reginah W Kassidy ELEVATOR OPERATOR SERVICE-C Unavailable Unavailabl e Ching, Reginalisa W Kassidy ELEVATOR OPERATOR SERVICE-C Unavailable Unavailabl e Ching, Reginah W Kassidy ELEVATOR OPERATOR SERVICE-C Unavailable Unavailabl e Ching, Reginah W Kassidy ELEVATOR OPERATOR SERVICE-C Unavailable Unavailabl e Ching, Reginah W Kassidy ELEVATOR OPERATOR SERVICE-C Unavailable Unavailabl e Ching, Reginah W Kassidy ELEVATOR OPERATOR SERVICE-C Unavailable Unavailabl e Ching, Reginah W Kassidy ELEVATOR OPERATOR SERVICE-C Unavailable Unavailabl e Ching, Reginah W Kassidy ELEVATOR OPERATOR SERVICE-C Unavailable Unavailabl e Ching, Reginah W Kassidy ELEVATOR OPERATOR SERVICE-C Unavailable Unavailabl e Ching, Reginah W Kassidy ELEVATOR OPERATOR SERVICE-C Unavailable Unavailabl e Ching, Reginah W Kassidy ELEVATOR OPERATOR SERVICE-C Unavailable Unavailabl e Ching, Elijah Yi ELEVATOR OPERATOR SERVICE-C Unavailable Unavailabl e Ching, Elijah Yi ELEVATOR OPERATOR SERVICE-C Unavailable Unavailabl e Ching, Elijah Yi ELEVATOR OPERATOR SERVICE-C Unavailable Unavailabl e Ching, Elijah Yi ELEVATOR OPERATOR SERVICE-C Unavailable Unavailabl e Ching, Elijah Yi ELEVATOR OPERATOR SERVICE-C Unavailable Unavailabl e Ching, Elijah Yi ELEVATOR OPERATOR SERVICE-C Unavailable Unavailabl e Ching, Elijah Yi ELEVATOR OPERATOR SERVICE-C Unavailable Unavailabl e Ching, Elijah Yi ELEVATOR OPERATOR SERVICE-C Unavailable Unavailabl e Ching, Elijah Yi ELEVATOR OPERATOR SERVICE-C Unavailable Unavailabl e Ching, Elijah Yi ELEVATOR OPERATOR SERVICE-C Unavailable Unavailabl e Ching, Elijah Yi ELEVATOR OPERATOR SERVICE-C Unavailable Unavailabl e Ching, Elijah Yi ELEVATOR OPERATOR SERVICE-C Unavailable Unavailabl e Ching, Elijah Yi ELEVATOR OPERATOR SERVICE-C Unavailable Unavailabl e Ching, Elijah Yi ELEVATOR OPERATOR SERVICE-C Unavailable Unavailabl e Ching, Elijah Yi ELEVATOR OPERATOR SERVICE-C Unavailable Unavailabl e Hcing, Elijah Ballyce ELEVATOR OPERATOR SERVICE-C Unavailable Unavailabl e Lino Marie MD Unavailable Unavailable Lino Marie MD Unavailable Unavailable Lino Marie MD Unavailable Unavailable Lino Marie MD Unavailable Unavailable Lion Marie MD Unavailable Unavailable Lino Marie MD [...] BROWN, L JANE Unavailable Unavailable DESJARLAIS, KAROLYN RAILROAD POLICE OFFICER Unavailable Unavailable DESJARLAIS, KAROLYN RAILROAD POLICE OFFICER Unavailable Unavailable DESJARLAIS, KAROLYN RAILROAD POLICE OFFICER Unavailable Unavailable DESJARLAIS, KAROLYN RAILROAD POLICE OFFICER Unavailable Unavailable DESJARLAIS, KAROLYN RAILROAD POLICE OFFICER Unavailable Unavailable DESJARLAIS, KAROLYN RAILROAD POLICE OFFICER Unavailable Unavailable DESJARLAIS, KAROLYN RAILROAD POLICE OFFICER Unavailable Unavailable DESJARLAIS, KAROLYN RAILROAD POLICE OFFICER Unavailable Unavailable DESJARLAIS, KAROLYN RAILROAD POLICE OFFICER Unavailable Unavailable MAHESH RECINOS Unavailable Unavailable Lester, Mavis ELEVATOR OPERATOR SERVICE ELEVATOR OPERATOR SERVICE Unavailable Unavailable BLUM KATRIN Unavailable Unavailable Lester, A Mavis ELEVATOR OPERATOR SERVICE Unavailable Unavailable Lester, A Mavis ELEVATOR OPERATOR SERVICE Unavailable Unavailable Lester, A Mavis ELEVATOR OPERATOR SERVICE Unavailable Unavailable Lester, A Mavis ELEVATOR OPERATOR SERVICE Unavailable Unavailable Lester, A Mavis ELEVATOR OPERATOR SERVICE Unavailable Unavailable Lester, A Mavis ELEVATOR OPERATOR SERVICE Unavailable Unavailable Lester, A Mavis ELEVATOR OPERATOR SERVICE Unavailable Unavailable Lester, A Mavis ELEVATOR OPERATOR SERVICE Unavailable Unavailable Lester, A Mavis ELEVATOR OPERATOR SERVICE Unavailable Unavailable Lester, A Mavis ELEVATOR OPERATOR SERVICE Unavailable Unavailable Lester, A Mavis ELEVATOR OPERATOR SERVICE Unavailable Unavailable Lester, A Mavis ELEVATOR OPERATOR SERVICE Unavailable Unavailable Lester, A Mavis ELEVATOR OPERATOR SERVICE Unavailable Unavailable Lester, A Mavis ELEVATOR OPERATOR SERVICE Unavailable Unavailable Lester, A Mavis ELEVATOR OPERATOR SERVICE Unavailable Unavailable Lester, A Mavis ELEVATOR OPERATOR SERVICE Unavailable Unavailable Lester, A Mavis ELEVATOR OPERATOR SERVICE Unavailable Unavailable Lester, A Mavis ELEVATOR OPERATOR SERVICE Unavailable Unavailable Lester, A Mavis ELEVATOR OPERATOR SERVICE Unavailable Unavailable Lester, A Mavis ELEVATOR OPERATOR SERVICE Unavailable Unavailable Lester, A Mavis ELEVATOR OPERATOR SERVICE Unavailable Unavailable Lester, A Mavis ELEVATOR OPERATOR SERVICE Unavailable Unavailable Lester, A Mavis ELEVATOR OPERATOR SERVICE Unavailable Unavailable Lester, A Mavis ELEVATOR OPERATOR SERVICE Unavailable Unavailable Lester, A Mavis ELEVATOR OPERATOR SERVICE Unavailable Unavailable Lester, A Mavis ELEVATOR OPERATOR SERVICE Unavailable Unavailable Lester, A Mavis ELEVATOR OPERATOR SERVICE Unavailable Unavailable Lester, A Mavis ELEVATOR OPERATOR SERVICE Unavailable Unavailable Re-disclosure Warning The records that [...] is protected by Article 27-F of the [facility] Public Health law. If you continue you may have access to information: Regarding HIV / AIDS; Provided by facilities licensed or operated by the [facility] Office of Mental Health; or Provided by the [facility] Office for People With Developmental Disabilities. If such information is present, then the following [facility] mandated warning applies: This information has [...] law may result in a fine or halfway sentence or both. A general authorization for the release of medical or other information is NOT sufficient authorization for further disc losure. Allergies and Adverse Reactions Type Description Substance Reaction Status Data Source(s ) Drug allergy Drug allergy AMOXICLIIN SWELLING, HIVES SV R [facility] Drug allergy olanzapine ol[facility]apine [facility] Drug allergy trimethoprim trimethoprim "BLISTERS IN MOUTH" [facility] Drug allergy sulfamethoxazole sulfamethoxazole "BLISTERS IN MOUTH" [facility] Drug allergy haloperidol haloperidol [facility] Drug allergy Sulfa (Sulfonamide Antibiotics) Sulfa (Sulfonami de Antibiotics) "BLISTERS IN MOUTH" [facility] Drug allergy Penicillins Penicillins SWELLING, HIVES SV R er [facility] Encounters Encounter Providers Location Date Indications Data Source(s ) Preadmit Attender: FAHAD MOONEY 04/15/2020 09:45:0 0 AM [facility] Outpatient Attender: JANE EDWARD 03/23/2020 02:00:00 PM [facility] Outpatient Attender: JANE EDWARD 03/17/2020 10:30:00 AM [facility] Outpatient Attender: JANE EDWARD 03/11/2020 04:00:00 PM [facility] Preadmit Attender: FAHAD MOONEY 03/11/2020 06:30:0 0 AM [facility] Outpatient Attender: KAROLYN VAN NP 03/09/2020 03: 40:00 PM [facility] Outpatient [facility] 03/03/2020 12:00:00 AM [facility] eCW ([facility]) Outpatient Attender: Shira Becerraferrer: Shira Youngblood PA-C EMERGENCY ROOM-LAB 03/01/2020 04:49:00 PM [facility] - 03/01/2020 04:49:00 PM [facility] Outpatient Attender: Shira Youngblood PA-C 03/01/2020 03:45 :00 PM [facility] Outpatient [facility] 03/01/2020 12:00:00 AM EST eCW1 ([facility]) Outpatient [facility] 03/01/2020 12:00:00 AM [place] [id number] ([facility]) Outpatient Attender: KAROLYN VAN NP 02/18/2020 02: 40:00 PM [facility] Outpatient Attender: Kassidy NAIRC 02/18/2020 10:00:0 0 AM EST [facility] Outpatient [facility] 02/18/2020 12:00:00 AM EST eCW1 ([facility]) Outpatient [facility] 02/10/2020 12:00:00 AM EST eCW1 ([facility]) Outpatient [facility] 02/03/2020 12:00:00 AM EST eCW1 ([facility]) Outpatient [facility] 01/14/2020 12:00:00 AM EST eCW1 ([facility]) Outpatient [facility] 01/06/2020 12:00:00 AM EST eCW1 ([facility]) Outpatient Attender: JOHNATHON PATEL 01/02/2020 10:06:00 A M EST [facility] Outpatient [facility] 01/02/2020 12:00:00 AM EST eCW1 ([facility]) Outpatient Attender: JANE EDWARD 01/01/2020 02:30:00 PM E [facility] Outpatient Attender: KAROLYN VAN NP 12/24/2019 11: 00:00 AM T [facility] Outpatient Attender: Shira Youngblood PA-C 12/24/2019 08:24 :00 AM EDT [facility] Outpatient [facility] 12/24/2019 12:00:00 AM EDT eCW1 ([facility]) Outpatient Attender: JANE EDWARD 12/23/2019 01:54:00 PM E [facility] Outpatient [facility] 12/23/2019 12:00:00 AM EDT eCW1 ([facility]) Outpatient Attender: Mavis PATEL 12/12/2019 11:3 5:02 AM EDT [facility] Outpatient Attender: JANE EDWARD 12/11/2019 03:00:00 PM E [facility] Outpatient [facility] 12/09/2019 12:00:00 AM EDT eCW1 ([facility]) Outpatient Attender: Mavis PATEL 12/05/2019 01:2 6:01 PM EDT [facility] Inpatient Attender: PRERNA RIOS MDAdmitter: PRERNA Hopson MD ER-3RD 12/05/2019 10:08:00 AM EDT - 12/10/2019 01:07:00 PM EDT [facility] Patient discharged. Outpatient Attender: NATHAN PAUL PA-C 12/05/2019 09:03:00 AM EDT [facility] Admission cancelled. Disregard status an d admitted date. Inpatient Attender: BEHZAD HOGAN MD Attender: BEHZAD HOGAN MDAttender: DIOGENES BUENO MDAttender: DIOGENES BUENO MDAdmitter: BEHZAD HOGAN MD ER-ICU 12/04/2019 11:06:00 PM EDT - 12/05/2019 10:03:00 AM EDT [facility] Patient discharged. Emergency Attender: GINGER Diazerrer: Melissa Youngblood PA-C EMERGENCY ROOM-ER 12/04/2019 04:21:00 PM EDT - 12/04/2019 08:40:00 PM EDT [facility] Patient discharged. Outpatient Attender: KAROLYN VAN NP 12/04/2019 03: 11:00 PM EDT [facility] Outpatient Attender: Mavis PATEL 11/29/2019 07:0 4:03 PM EDT [facility] Outpatient Attender: JOHNATHON PATEL 11/29/2019 07:04:01 P M EDT [facility] Outpatient Attender: Mavis PATEL 11/24/2019 12:2 9:00 PM EDT [facility] Emergency Attender: EVONNE HAGENConsultant: STAFF NON 11/07/2019 12:19:00 AM EDT - 11/07/2019 04:20:00 AM EDT [facility] Patient discharged. Outpatient [facility] 11/07/2019 12:00:00 AM EDT eCW1 ([facility]) Outpatient Attender: Mavis PATEL 11/04/2019 02:2 6:02 PM EDT [facility] Outpatient Attender: KAROLYN VAN NP 11/04/2019 11: 40:00 AM EDT [facility] Outpatient Attender: Mavis PATEL 11/02/2019 01:2 6:00 PM EDT [facility] Outpatient Attender: Mavis PATEL 10/31/2019 06:0 2:00 PM EDT [facility] Outpatient Attender: JOHNATHON DIEGO FP 10/31/2019 06:01:59 P M EDT [facility] Outpatient Attender: Mavis DIEGO FP 10/31/2019 06:0 1:03 PM EDT [facility] Outpatient Attender: JOHNATHON DIEGO FP 10/31/2019 06:01:01 P M EDT [facility] Outpatient Attender: Shira Youngblood PA-C 10/31/2019 09:06 :00 AM EDT [facility] Outpatient [facility] 10/31/2019 12:00:00 AM EDT eCW1 ([facility]) Outpatient Attender: JANE EDWARD 10/27/2019 11:00:00 AM E [facility] Outpatient Attender: KAROLYN VAN NP 10/21/2019 03: 20:00 PM EDT [facility] Emergency Attender: EVONNE HAGENConsultant: STAFF NON 10/09/2019 02:09:00 AM EDT - 10/09/2019 03:44:00 AM EDT [facility] Patient discharged. Outpatient Attender: KATRIN BLUM 10/06/2019 09:37:00 AM ED [facility] Outpatient Attender: Mavis DIEGO 09/25/2019 04:0 9:01 PM EDT [facility] Outpatient Attender: Mavis DIEGO 09/25/2019 04:0 7:59 PM EDT [facility] Outpatient Attender: JOHNATHON DIEGO FP 09/23/2019 10:31:00 A M EDT [facility] Outpatient Attender: JOHNATHON DIEGO FP 09/23/2019 10:30:01 A M EDT [facility] Outpatient Attender: JOHNATHON DIEGO FP 09/23/2019 12:02:09 A M EDT [facility] Outpatient Attender: JOHNATHON DIEGO FP 09/22/2019 05:44:02 P M EDT [facility] Outpatient Attender: Mavis DIEGO FP 09/22/2019 05:4 2:59 PM EDT [facility] Outpatient Attender: JOHNATHON PATEL 09/22/2019 02:38:00 P M EDT [facility] Outpatient Attender: Mavis DIEGO FP 09/22/2019 12:0 5:01 PM EDT [facility] Outpatient Attender: JOHNATHON DIEGO FP 09/22/2019 07:56:01 A M EDT [facility] Outpatient Attender: Mavis DIEGO FP 09/16/2019 05:0 8:02 AM EDT [facility] Outpatient Attender: Mavis TRUJILLOP FP 09/14/2019 05:1 9:00 PM EDT [facility] Outpatient Attender: JOHNATHON DIEGO FP 09/14/2019 05:19:00 P M EDT [facility] Outpatient Attender: Mavis TRUJILLOP FP 09/12/2019 11:5 3:00 AM EDT [facility] Outpatient Attender: Mavis DIEGO FP 09/10/2019 11:0 6:01 PM EDT [facility] Outpatient Attender: JOHNATHON DIEGO FP 09/10/2019 11:06:01 P M EDT [facility] Outpatient Referrer: Femi Marie MD 08/15/2019 05:44:00 A M EDT [facility] Outpatient Attender: Mavis DIEGO FP 08/06/2019 09:5 2:01 AM EDT [facility] Outpatient Attender: JOHNATHON DIEGO FP 08/05/2019 07:41:16 P M EDT [facility] Outpatient Attender: Mavis DIEGO FP 08/05/2019 09:2 3:03 AM EDT [facility] Outpatient Attender: JOHNATHON DIEGO FP 08/05/2019 09:23:01 A M EDT [facility] Outpatient Attender: KATRIN BLUM 08/04/2019 09:42:00 AM ED [facility] Outpatient Attender: Mavis DIEGO FP 08/01/2019 10:3 1:00 AM EDT [facility] Outpatient Attender: Mavis DIEGO FP 08/01/2019 10:2 7:02 AM EDT [facility] Outpatient Attender: JOHNATHON DIEGO FP 07/30/2019 11:31:01 A M EDT [facility] Outpatient Attender: KATRIN BLUM 07/07/2019 03:30:00 PM ED [facility] Outpatient Attender: Mavis DIEGO FP 07/04/2019 10:3 3:02 AM EDT [facility] Outpatient Attender: Mavis DIEGO FP 07/03/2019 01:5 2:01 PM EDT [facility] Outpatient Attender: Mavis DIEGO FP 07/02/2019 10:2 8:02 AM EDT [facility] Outpatient Attender: Mavis DIEGO FP 07/01/2019 09:5 7:00 AM EDT [facility] Outpatient Attender: JOHNATHON DIEGO FP 07/01/2019 08:57:00 A M EDT [facility] Outpatient Referrer: Femi Marie MD 07/01/2019 04:55:00 A M EDT [facility] Outpatient Attender: JOHNATHON DIEGO FP 06/30/2019 04:21:00 P M EDT [facility] Outpatient Attender: Mavis DIEGO FP 06/22/2019 06:0 1:59 PM EDT [facility] Outpatient Attender: Mavis DIEGO FP 06/17/2019 03:3 2:01 PM EDT [facility] Outpatient Attender: JOHNATHON DIEGO FP 05/27/2019 12:22:00 P M EDT [facility] Outpatient Attender: Mavis DIEGO FP 05/24/2019 11:3 7:01 PM EDT [facility] Outpatient Attender: JOHNATHON DIEGO FP 05/20/2019 12:36:01 P M EDT [facility] Outpatient Attender: JOHNATHON DIEGO FP 05/20/2019 11:56:00 A M EDT [facility] Outpatient Attender: JOHNATHON DIEGO FP 05/20/2019 11:42:01 A M EDT [facility] Outpatient Attender: JOHNATHON DIEGO FP 05/01/2019 03:31:00 P M EST [facility] Outpatient Attender: Mavis DIEGO FP 04/28/2019 10:4 4:[address] [facility] Outpatient Attender: KATRIN BLUM 04/21/2019 10:29:00 AM [facility] Outpatient Attender: JOHNATHON DIEGO FP 04/15/2019 12:44:01 P M [facility] Outpatient Attender: MAHESH RECINOS 02/24/2019 01:46:00 PM [facility] Outpatient Attender: JANE EDWARD 02/21/2019 10:00:00 AM E [facility] Outpatient Attender: JOHNATHON PATEL 02/18/2019 09:01:04 P M EST [facility] Outpatient Attender: MAHESH RECINOS 02/10/2019 02:18:00 PM [facility] Outpatient Attender: MAHESH RECINOS 01/20/2019 04:26:00 PM [facility] Inpatient Attender: CHAO GUERRA MDAtten harjinder: PRERNA RIOS MDAdmitter: PRERNA RIOS MD ER-3RD 12/23/2018 04:01:00 PM EDT - 12/26/2018 01:22:00 PM EDT [facility] Patient discharged. Inpatient Attender: ONDINA RAMIREZ MDAdmitter: ONDINA RAMIREZ MD E R-ICU 12/19/2018 05:26:00 PM EDT - 12/23/2018 03:42:00 PM EDT [facility] Patient discharged. Emergency Attender: MATIAS MIKE EMERGENCY ROOM-ER 03:51:00 PM EDT - 12/19/2018 04:47:00 PM T [facility] Patient discharged. Medications Medication Brand [...] AREA(S) THREE TIMES A DAY SOLD: 01/02/2020 [facility] 8-2 mg 01/01/2020 12:00:00 AM EST film [address] TWO FILMS UNDER THE TONGUE EVERY DAY MAXIMUM DAILY DOSE = [address] TWO FILMS UNDER THE TONGUE EVERY DAY MAXIMUM DAILY DOSE = 2 FILMS SOLD: 01/02/2020 [facility] Clonidine Hydrochloride 0.2 MG Oral Tablet Clonidine H Cl 0.2 MG Clonidine HCl 0.2 MG 12/24/2019 12:00:00 AM EDT 1.0 {tablet} activ e Clonidine HCl 0.2 MG eCW1 ([facility]) Clonidine Hydrochloride 0.2 MG Oral Tablet Clonidine H Cl 0.2 MG Clonidine HCl 0.2 MG 12/24/2019 12:00:00 AM EDT 1.0 {tablet} activ e Clonidine HCl 0.2 MG eCW1 ([facility] jimena) Clonidine Hydrochloride 0.2 MG Oral Tablet Clonidine H Cl 0.2 MG Clonidine HCl 0.2 MG 12/24/2019 12:00:00 AM EDT 1.0 {tablet} activ e Clonidine HCl 0.2 MG eCW1 ([facility] jimena) Clonidine Hydrochloride 0.2 MG Oral Tablet Clonidine H Cl 0.2 MG Clonidine HCl 0.2 MG 12/24/2019 12:00:00 AM EDT 1.0 {tablet} suspe nded Clonidine HCl 0.2 MG eCW1 ([facility] jimena) Clonidine Hydrochloride 0.2 MG Oral Tablet Clonidine H Cl 0.2 MG Clonidine HCl 0.2 MG 12/24/2019 12:00:00 AM EDT 1.0 {tablet} activ e Clonidine HCl 0.2 MG eCW1 ([facility]) Clonidine Hydrochloride 0.2 MG Oral Tablet Clonidine H Cl 0.2 MG Clonidine HCl 0.2 MG 12/24/2019 12:00:00 AM EDT 1.0 {tablet} activ e Clonidine HCl 0.2 MG eCW1 ([facility]) Clonidine Hydrochloride 0.2 MG Oral Tablet Clonidine H Cl 0.2 MG Clonidine HCl 0.2 MG 12/24/2019 12:00:00 AM EDT 1.0 {tablet} activ e Clonidine HCl 0.2 MG eCW1 ([facility]) Clonidine Hydrochloride 0.2 MG Oral Tablet Clonidine H Cl 0.2 MG Clonidine HCl 0.2 MG 12/24/2019 12:00:00 AM EDT 1.0 {tablet} suspe nded Clonidine HCl 0.2 MG eCW1 ([facility]) Clonidine Hydrochloride 0.2 MG Oral Tablet Clonidine H Cl 0.2 MG Clonidine HCl 0.2 MG 12/24/2019 12:00:00 AM EDT 1.0 {tablet} suspe nded Clonidine HCl 0.2 MG eCW1 ([facility]) Clonidine Hydrochloride 0.2 MG Oral Tablet Clonidine H Cl 0.2 MG Clonidine HCl 0.2 MG 12/24/2019 12:00:00 AM EDT 1.0 {tablet} activ e Clonidine HCl 0.2 MG eCW1 ([facility]) Clonidine Hydrochloride 0.2 MG Oral Tablet Clonidine H Cl 0.2 MG Clonidine HCl 0.2 MG 12/24/2019 12:00:00 AM EDT 1.0 {tablet} activ e Clonidine HCl 0.2 MG eCW1 ([facility]) 300 mg 12/13/2019 12:00:00 [...] {tablet_at_bedtime} active Clonazepam 0 .5 MG eCW1 ([facility]) Clonazepam 0.5 MG Oral Tablet Clonazepam 0.5 MG 11/04/2019 12:00:00 AM EDT 1.0 {tablet_at_bedtime} active Clonazepam 0 .5 MG eCW1 ([facility]) lisdexamfetamine dimesylate 50 MG Oral Capsule [Vyvans e] Vyvanse 50 MG Vyvanse 50 MG 11/04/2019 12:00:00 AM EDT 1.0 {capsule_in_the_morning} active Vyvanse 50 MG eCW1 ([facility]) Citalopram 20 MG Oral Tablet [Celexa] Celexa 20 MG Celexa 20 MG 11/04/2019 12:00:00 AM EDT 1.0 {tablet} active Ce elise 20 MG eCW1 ([facility]) Citalopram 20 MG Oral Tablet [Celexa] Celexa 20 MG Celexa 20 MG 11/04/2019 12:00:00 AM EDT 1.0 {tablet} active Ce elise 20 MG eCW1 ([facility]) lisdexamfetamine dimesylate 50 MG Oral Capsule [Vyvans e] Vyvanse 50 MG Vyvanse 50 MG 11/04/2019 12:00:00 AM EDT 1.0 {capsule_in_the_morning} active Vyvanse 50 MG eCW1 ([facility]) Citalopram 20 MG Oral Tablet [Celexa] Celexa 20 MG Celexa 20 MG 11/04/2019 12:00:00 AM EDT 1.0 {tablet} active Ce elise 20 MG eCW1 ([facility]) 75 mg 11/02/2019 12:00:00 AM EDT tablet [...] 1.0 {tablet} active Risperdal 3 MG eCW1 ([facility]) Risperidone 3 MG Oral Tablet [Risperdal] Risperdal 3 MG Risp erdal 3 MG 07/07/2019 12:00:00 AM EDT 1.0 {tablet} active Risperdal 3 MG eCW1 ([facility]) Risperidone 3 MG Oral Tablet [Risperdal] Risperdal 3 MG Risp erdal 3 MG 07/07/2019 12:00:00 AM EDT 1.0 {tablet} active Risperdal 3 MG eCW1 ([facility]) Risperidone 2 MG Oral Tablet [Risperdal] Risperdal 2 MG Risp erdal 2 MG 07/07/2019 12:00:00 AM EDT 1.0 {tablet} active Risperdal 2 MG eCW1 ([facility]) Risperidone 3 MG Oral Tablet [Risperdal] Risperdal 3 MG Risp erdal 3 MG 07/07/2019 12:00:00 AM EDT 1.0 {tablet} active Risperdal 3 MG eCW1 ([facility]) Risperidone 3 MG Oral Tablet [Risperdal] Risperdal 3 MG Risp erdal 3 MG 07/07/2019 12:00:00 AM EDT 1.0 {tablet} active Risperdal 3 MG eCW1 ([facility]) Risperidone 2 MG Oral Tablet [Risperdal] Risperdal 2 MG Risp erdal 2 MG 07/07/2019 12:00:00 AM EDT 1.0 {tablet} active Risperdal 2 MG eCW1 ([facility]) Risperidone 3 MG Oral Tablet [Risperdal] Risperdal 3 MG Risp erdal 3 MG 07/07/2019 12:00:00 AM EDT 1.0 {tablet} active Risperdal 3 MG eCW1 ([facility]) Risperidone 3 MG Oral Tablet [Risperdal] Risperdal 3 MG Risp erdal 3 MG 07/07/2019 12:00:00 AM EDT 1.0 {tablet} active Risperdal 3 MG eCW1 ([facility]) Risperidone 3 MG Oral Tablet [Risperdal] Risperdal 3 MG Risp erdal 3 MG 07/07/2019 12:00:00 AM EDT 1.0 {tablet} active Risperdal 3 MG eCW1 ([facility]) Risperidone 3 MG Oral Tablet [Risperdal] Risperdal 3 MG Risp erdal 3 MG 07/07/2019 12:00:00 AM EDT 1.0 {tablet} active Risperdal 3 MG eCW1 ([facility]) Risperidone 3 MG Oral Tablet [Risperdal] Risperdal 3 MG Risp erdal 3 MG 07/07/2019 12:00:00 AM EDT 1.0 {tablet} active Risperdal 3 MG eCW1 ([facility]) Risperidone 2 MG Oral Tablet [Risperdal] Risperdal 2 MG Risp erdal 2 MG 07/07/2019 12:00:00 AM EDT 1.0 {tablet} active Risperdal 2 MG eCW1 ([facility]) Risperidone 3 MG Oral Tablet [Risperdal] Risperdal 3 MG Risp erdal 3 MG 07/07/2019 12:00:00 AM EDT 1.0 {tablet} active Risperdal 3 MG eCW1 ([facility]) 8-2 mg 06/27/2019 12:00:00 AM EDT film [address] TWO FILMS UNDER THE TONGUE EVERY DAY MAXIMUM DAILY DOSE = 2 PLACE TWO FILMS UNDER THE TONGUE EVERY D AY MAXIMUM DAILY DOSE = 2 SOLD: 06/27/2019 [facility] 400 mg 06/23/2019 12:00:00 AM EDT [...] MAXIMUM DAILY DOSE = 2 PLACE 2 [facility] UNDER THE TONGUE ONCE DAILY MAXIMUM DAILY [...] type / Coverage type Policy ID Covered constitution party ID Covered constitution party's relationship to dick Policy Dick Plan Information [facility] [id number] SP [id number] [facility] [id number] S [id number] [facility] MEDICAID [id number] S [id number] [facility] MEDICAID [id number] S [id number] [facility] MEDICAID [id number] S [id number] [facility] O [id number] S [id number] Managed Care [facility] Community Plan P [id number] S [id number] Medicaid S [id number] S [id number] [facility] [id number] SP [id number] [facility] [id number] S [id number] [facility] [id number] SP [id number] [facility]AN XIX [id number] MEDICAID [id number] SP [id number] Managed Care - [facility] Community Plan P [id number] S [id number] MEDICAID [id number] S [id number] MEDICAID [id number] S [id number] MEDICAID PROF FEES [id number] S [id number] MEDICAID [id number] S [id number] [facility] [id number] S [id number] Medicaid S [id number] S [id number] Managed Care - Community Plan [facility] P [id number] S [id number] [id number] SP [id number] Medicaid P [id number] S [id number] SELF PAY ONLY [id number] SP [id number] [facility] [id number] SP [id number] [facility] [id number] SP [id number] SELF PAY UNAVAILABLE SP UNAVAILA BLE Self Pay P UNAVAILABLE S UNAVAILA BLE Medicaid P [id number] S [id number] [facility] UNAVAILA BLE Managed Care - [facility] P [id number] S [id number] Medicaid S UNAVAILABLE S UNAVAILA BLE Problems, Conditions, and Diagnoses Code Display Name Description Problem Type Effective Dates Data Source(s) K14.6 42246232 Tongue sore Problem 03/01/2020 12:00:[address] eCW1 ([facility]) F19.11 [id number] History of drug abuse Problem 03/01/2020 12: 00:00 AM EST eCW1 ([facility]) F19.10 97885452 Substance abuse Problem 12/24/2019 12:00:00 AM EDT eCW1 ([facility]) F50.81 348322650 Binge eating disorder Problem 11/04/2019 12: 00:00 AM EDT eCW1 ([facility]) K21.9 [id number] Gastroesophageal ref lux disease, esophagitis presence not specified Problem 10/31/2019 12:00:00 AM EDT eCW1 ([facility]) F17.200 35620752 Tobacco dependence Problem 10/31/2019 12:00: 00 AM EDT eCW1 ([facility]) E66.9 [id number] Obesity (BMI 30.0-34.9) Problem 0 10/31/2019 12:00:00 AM EDT eCW1 ([facility]ena) Z68.30 512472319 BMI 30.0-30.9,adult Problem 10/31/2019 12:00 :00 AM EDT eCW1 ([facility]) R13.12 31182558 Oropharyngeal dysphagia Problem 10/31/2019 1 2:00:00 AM EDT eCW1 ([facility]) G56.03 [id number] Carpal tunnel syndrome, bilateral Pr oblem 10/31/2019 12:00:00 AM EDT eCW1 ([facility] j[facility]ena) K92.0 Hematemesis Hematemesis - cause unknown 020 05:42:44 PM EDT [facility] I80.9 Phlebitis and thrombophlebitis of unspec ified site Phlebitis and thrombophlebitis of unspecified site 05/20/2019 12:34:09 PM EDT [facility] right AC and right tibia F19.10 Other psychoactive substance abuse, unco mplicated OTHER PSYCHOACTIVE SUBSTANCE ABUSE, UNCOMPLICATED Diagnosis 03/17/2020 10:30:00 AM [facility] F90.0 Attention-deficit hyperactivity disorder , predominantly inattentive type ATTN-DEFCT HYPERACTIVITY DISORDER, PREDOM INATTENT Diagnosis 10:30:00 AM [facility] F11.21 Opioid dependence, in remission OPIOID DEPENDENC E, IN REMISSION Diagnosis 03/17/2020 10:30:00 AM [facility] F50.81 BINGE EATING DISORDER BINGE EATING DISORDER Diagnosis 03/17/2020 10:30:00 AM [facility] F43.12 Post-traumatic stress disorder, chronic POST-TRAUMATIC STRESS DISORDER, CHRONIC Diagnosis 03/17/2020 10:30:00 AM [facility] F25.9 Schizoaffective disorder, unspecified SC HIZOAFFECTIVE DISORDER, UNSPECIFIED Diagnosis 03/17/2020 10:30:00 AM [facility] Z13.29 Encounter for screening for other suspec keven endocrine disorder ENCOUNTER FOR SCREENING FOR OTH SUSPECTE Diagnosis 03/01/2020 04:49:00 PM [facility] Z82.61 Family history of arthritis FAMILY HISTORY OF ARTHRITI S Diagnosis 03/01/2020 03:45:00 PM [facility] Z13.220 Encounter for screening for lipoid disor ders ENCOUNTER FOR SCREENING FOR LIPOID DISORDERS Diagnosis 03/01/2020 03:45:00 PM [facility] Z82.69 Family history of other dise ases of the musculoskeletal system and connective tissue FAMILY HISTORY OF DISEASES OF THE MS SYS AND CONNE Diagnosis 03/01/2020 03:45:00 PM [facility] R50.9 Fever, unspecified FEVER, UNSPECIFIED Diagnosis 05/2020 03:45:00 PM [facility] 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, in r emission OTHER PSYCHOACTIVE SUBSTANCE ABUSE, IN REMISSION Diagnosis 03/01/2020 03:45:00 PM [facility] G56.03 CARPAL TUNNEL SYNDROME, BILATERAL UPPER LIMBS CARPAL TUNNEL SYNDROME, BILATERAL UPPER LIMBS Diagnosis 03/01/2020 03:45:00 PM [facility]ames K21.9 Gastro-esophageal reflux disease without esophagitis GASTRO-ESOPHAGEAL REFLUX DISEASE WITHOUT ESOPHAGITIS Diagnosis 02/18/2020 10:00:00 AM [facility] F15.10 Other stimulant abuse, uncomplicated OTH ER STIMULANT ABUSE, UNCOMPLICATED Diagnosis 01/01/2020 02:30:00 PM [facility] F12.10 Cannabis abuse, uncomplicated CANNABIS ABUSE, UNCOMPLI CATED Diagnosis 12/24/2019 11:00:00 AM [facility] F11.10 Opioid abuse, uncomplicated OPIOID ABUSE, UNCOMPLICATE D Diagnosis 12/24/2019 11:00:00 AM [facility] R13.12 Dysphagia, oropharyngeal phase DYSPHAGIA, OROPHARYNGEA L PHASE Diagnosis 12/24/2019 08:24:00 AM [facility] M54.2 Cervicalgia CERVICALGIA Diagnosis 12/24/2019 08:24:00 AM [facility] T50.914D POISONING BY MULTIPLE UNSP DRUG/MEDS/BIO L SUBST, U POISONING BY MULTIPLE UNSP DRUG/MEDS/BIOL SUBST, U Diagnosis 12/24/2019 08:24:00 AM [facility] F19.20 Other psychoactive substance dependence, uncomplicated OTHER PSYCHOACTIVE SUBSTANCE DEPENDENCE, UNCOMPLIC Diagnosis 12/05/2019 10:08:00 AM [facility] R45.851 Suicidal ideations SUICIDAL IDEATIONS Diagnosis 10/2019 10:08:00 AM [facility] G40.909 Epilepsy, unspecified, not intractable, without status epilepticus EPILEPSY, UNSP, NOT INTRACTABLE, WITHOUT STATUS EP Diagnosis 10/2019 10:08:00 AM [facility] F32.2 Major depressive disorder, s rito episode, severe without psychotic features MAJOR DEPRESSV DISORD, SINGLE EPSD, SEV Diagnosis 12/05/2019 10:08:00 AM [facility] F25.1 Schizoaffective disorder, depressive typ e SCHIZOAFFECTIVE DISORDER, DEPRESSIVE TYPE Diagnosis 12/05/2019 10:08:00 AM [facility] Y92.[address] or not applicable UNSPECIFIED PLACE OR NOT APPLICABLE Diagnosis 12/04/2019 11:06:00 PM [facility] X58.XXXA Exposure to other specified factors, ini tial encounter EXPOSURE TO OTHER SPECIFIED FACTORS, INITIAL ENCOU Diagnosis 12/04/2019 11:06:00 P M [facility] T42.6X2A Poisoning by other antiepile ptic and sedative-hypnotic drugs, intentional self-harm, initial encounter POISN BY OTH ANTIEPLPTC AND SED-HYPNTC DRUGS, SLF- Diagnosis 12/04/2019 11:06:00 PM [facility] T40.902A Poisoning by unspecified psy chodysleptics [hallucinogens], intentional self-harm, initial encounter POISONING BY UNSP PSYCHODYSLEPTICS, SELF-HARM, INI Diagnosis 12/04/2019 11:06:00 PM [facility] K21.9 Gastro-esophageal reflux disease without esophagitis GASTRO-ESOPHAGEAL REFLUX DISEASE WITHOUT ESOPHAGIT Diagnosis 12/04/2019 11:06:00 PM [facility] F90.9 Attention-deficit hyperactivity disorder , unspecified type ATTENTION- DEFICIT HYPERACTIVITY DISORDER, UNSPECIF Diagnosis 12/04/2019 11:06:00 PM [facility] F43.10 Post-traumatic stress disorder, unspecif ied POST-TRAUMATIC STRESS DISORDER, UNSPECIFIED Diagnosis 12/04/2019 11:06:[address] [facility] F43.23 Adjustment disorder with mixed anxiety a nd depressed mood ADJUSTMENT DISORDER WITH MIXED ANXIETY AND DEPRESS Diagnosis 12/04/2019 11:06:00 PM [facility] T42.4X2A Poisoning by benzodiazepines, intentiona l self-harm, initial encounter POISONING BY BENZODIAZEPINES, INTENTIONAL SELF-HARM, INIT Diagnosis 12/04/2019 11:06:00 PM [facility] Y93.89 Activity, other specified ACTIVITY, OTHER SPECIFIED Di agnosis 12/04/2019 04:21:00 PM [facility] Y92.[address] the place of o ccurrence of the external cause OT PLACES THE PLACE OF OCCURRENCE OF THE EXTER Diagnosis 09/2019 04:21:00 PM [facility] Z79.899 Other snf (current) drug therapy O THER ASSISTED (CURRENT) DRUG THERAPY Diagnosis 12/04/2019 04:21:00 PM [facility] Z20.828 Contact with and (suspected) exposure to other viral communicable diseases CONTACT W AND EXPOSURE TO OTH VIRAL COMMUNICABLE D Diagnosis 12/04/2019 04:21:00 PM [facility] F17.210 Nicotine dependence, cigarettes, uncompl icated NICOTINE DEPENDENCE, CIGARETTES, UNCOMPLICATED Diagnosis 12/04/2019 04:21:00 PM [facility] T50.992A Poisoning by other drugs, me dicaments and biological substances, intentional self-harm, initial encounter POISONING BY OT DRUG/MEDS/BIOL SUBST, SELF-HARM, Diagnosis 12/04/2019 04:21:00 PM [facility] R45.851 Suicidal ideations SUICIDAL IDEATIONS Diagnosis 09/2019 04:21:00 PM [facility] [id number] Nicotine dependence, cigarettes, uncompl icated Nicotine dependence, cigarettes, uncomplicated Diagnosis 11/07/2019 12:19:00 AM [facility] F1510 Other stimulant abuse, uncomplicated Other stimu lant abuse, uncomplicated Diagnosis 11/07/2019 12:19:00 AM [facility] M79403 Other psychoactive substance abuse with psychoactive substance-induced anxiety disorder Other psychoactive substance abuse with psychoactive substance- induced anxiety disorder Diagnosis 11/07/2019 12:19:00 AM [facility] R110 Nausea Nausea Diagnosis 11/07/2019 12:19:00 AM ED [facility] Z76.89 Persons encountering health services in other specified circumstances PERSONS ENCOUNTERING HEALTH SERVICES IN OT CIRCUM Diagnosis 05/2019 09:06:00 AM [facility] Z71.9 Counseling, unspecified COUNSELING, UNSPECIFIED Diagno sis 10/31/2019 09:06:00 AM [facility] Z68.30 Body mass index (BMI) 30.0-30.9, adult B BOB MASS INDEX (BMI) 30.0-30.9, ADULT Diagnosis 10/31/2019 09:06:[facility] E66.9 Obesity, unspecified OBESITY, UNSPECIFIED Diagnosis 10/31/2019 09:06:00 AM [facility] R56.9 Unspecified convulsions UNSPECIFIED CONVULSIONS Diagno sis 10/31/2019 09:06:00 AM [facility] F909 Attention-deficit hyperactivity disorder , unspecified type Attention- deficit hyperactivity disorder, unspecified type Diagnosis 10/08 02:09:00 AM EDT [facility] J029 Acute pharyngitis, unspecified Acute pharyngitis, unsp ecified Diagnosis 10/09/2019 02:09:00 AM EDT [facility] F15.11 OTHER STIMULANT ABUSE, IN REMISSION OTHER STIMUL ANT ABUSE, IN REMISSION Diagnosis 02/24/2019 01:46:00 PM [facility] Z72.0 Tobacco use TOBACCO USE Diagnosis 02/21/2019 10:00:00 AM [facility] F12.11 CANNABIS ABUSE, IN REMISSION CANNABIS ABUSE, IN REMISS ION Diagnosis 02/10/2019 02:18:00 PM [facility] Surgeries/Procedures Procedure Description Date Indications Data Source(s) Psychological Tests, Neurobehavioral and Cognitive Status 12/06/2019 12:00:00 AM [facility] Introduction of Electrolytic and Water B alance Substance into Peripheral Vein, Percutaneous Approach 12/04/2019 12:00:00 AM [facility] Results ID Date Data Source [id number] 03/04/2020 12:09:00 PM [facility] Name Value Range Interpretation Code Description Data [place] rce(s) Supporting Document(s) FAZAL DIRECT Negative [facility] Performed at: RN - [facility] [place] [id number] Director: Elsa Garcia MD, Phone: [phone] ID Date Data Source [id number] 03/04/2020 12:05:00 PM EST [facility] Name Value Range Interpretation Code Description Data [place] rce(s) Supporting Document(s) FAZAL Direct Negative Negative [facility] ID Date Data Source [id number] 03/03/2020 08:50:00 AM EST [facility] ADD ON TEST Name Value Range Interpretation Code Description Data [place] rce(s) Supporting Document(s) RHEUMATOID FACTOR SCREEN NEGATIVE NEGATIVE [facility] ID Date Data Source [id number] 03/03/2020 08:37:00 AM [facility] ADD ON TEST Name Value Range Interpretation Code Description Data [place] rce(s) Supporting Document(s) FREE T4 1.0 ng/dL 0.76-1.46 [facility] ID Date Data Source [id number] 03/03/2020 08:37:00 AM EST [facility] ADD ON TEST Name Value Range Interpretation Code Description Data [place] rce(s) Supporting Document(s) TSH 0.422 uIU/mL 0.36-3.74 [facility] ID Date Data Source [id number] 03/03/2020 08:11:00 AM EST [facility] ADD ON TEST Name Value Range Interpretation Code Description Data [place] rce(s) Supporting Document(s) C REACTIVE PROTEIN 15.6 mg/L 0.0-3.0 [facility] ID Date Data Source [id number] 03/03/2020 08:11:00 AM EST [facility] ADD ON TEST Name Value Range Interpretation Code Description Data [place] rce(s) Supporting Document(s) GLUCOSE 85 mg/dL 74-106 [facility] BLOOD UREA NITROGEN 11 mg/dL 7-18 [facility] ital CREATININE 0.88 mg/dL 0.6-1.0 [facility] SODIUM 135 mmol/L 136-145 L [facility] POTASSIUM 4.1 mmol/L 3.5-5.1 [facility] CHLORIDE 99 mmol/L 98-107 [facility] CO2 26 mmol/L 21-32 [facility] CALCIUM 8.8 mg/dL 8.5-10.1 [facility] ANION GAP 10.0 mmol/L 5-12 [facility] GLOMERULAR FILTRATION RATE 74 mL/min [facility] GFR IS CALCULATED IN mL/min/1.73m2 LISANDRA L FUNCTION: >90MILDLY DECREASED: 60-89MILDY TO MODERATELY DECREASED: 45-59 MODERATELY TO SEVERELY DECREASED: 30-44SEVERELY DECREASED: 15-29RENAL FAILURE: <15 AST 32 U/L 15-37 [facility] ALT 32 U/L 12-78 [facility] ALKALINE PHOSPHATASE 65 U/L 46-116 [facility] pital TOTAL BILIRUBIN 0.2 mg/dL 0.2-1.0 [facility] TOTAL PROTEIN 6.9 g/dl 6.4-8.2 [facility] ALBUMIN 3.9 gm/dL 3.4-5.0 [facility] ID Date Data Source [id number] 03/01/2020 05:46:00 PM EST [facility] Name Value Range Interpretation Code Description Data [place] rce(s) Supporting Document(s) CHOLESTEROL 193 mg/dL 0-200 [facility] TRIGLYCERIDES 86 mg/dL 0-150 [facility] LDL CHOLESTEROL 111 mg/dL 0-100 H [facility] HDL CHOLESTEROL 65 mg/dL 40-60 H [facility] CHOL/HDL RATIO 3.0 0.0-5.0 [facility] ID Date Data Source [id number] 02/29/2020 10:40:00 AM EST [facility] Name Value Range Interpretation Code Description Data [place] rce(s) Supporting Document(s) SARS coronavirus 2 RNA [facility] This lab was ordered by [facility] and reported by [facility]. ID Date Data Source [id number] 12/10/2019 11:15:00 AM EDT [address] [id number] NAME: BRUNA LEE#: [id number] PHYSICIAN: PRERNA RIOS MD ADM. DATE: 12/05/19ACCOUNT #: [id number] DISCH. DATE:DISCHARGE SUMMARYIDENTIFICATION: A 34-year-old female with schizoaffective disorder,polysubstance dependence.CHIEF COMPLAINT: "I don't know why I am here."REASON FOR ADMISSION: Post- overdose.HISTORY OF PRESENT ILLNESS: The patient was interviewed in ICU after sheoverdosed. The patient was seen in [facility] for a regularconsultation, she could not [...] [place] last time in our service with [...] ABUSE: None.SOCIAL HISTORY: The patient is from [place], did not finish high school.She was in [...] The patient was discharged with the medications Zzkics21 mg p.o. daily, Neurontin 600 mg p.o. [...] be enrolled in outpatient chemical dependence in [place].MENTAL STATUS EXAMINATION: The patient is pleasant, cooperative. [...] Dictated: 12/10/2019 09:34:34Date Transcribed: 12/10/2019 10:15:05JV/PUSJob #: [id number]: 12/10/19 0934 Electronically SignedTRANS:12/10/19 1115 PRERNA RIOS MDTRANS BY:ADE SIGNED:12/10/19REPORT COPY TO: Name Value Range Interpretation Code Description Data [place] rce(s) Supporting Document(s) ID Date Data Source [id number] 12/10/2019 06:43:00 AM EDT [place], [place] [address]PATIENT NAME: BRUNA LEE#: [id number] PHYSICIAN: PRERNA RIOS [facility] #: [id number] ADM. DATE: 12/05/19PATIENT : 89 DISCH. DATE: [...] follow-upappointmentDischarge InformationDISCHARGE INFORMATION* Thank you for choosing [facility] and allowing us toserve you* Our Goal is to provide the highest quality of care.* This discharge information is to help you better understand your diagnosisand medication* Avoid taking eltf-kzm-lbnleyq medicines unless approved by your physician.* Take your medications as prescribed. DO NOT stop any medications unlessapproved first* Weigh yourself daily. Report any gain of 5 lbs in a week* 24 Hour Crisis HOTLINE available: Call [facility] at [phone]* Chem. Dependency: Walk in Clinics [place] ([phone]) and [place] ([phone]) anytime Sunday thru Sunday 8 to 10am. [place] ([phone]) anytimeSunday thru Sunday 8 to 10am. [place] ([phone]) Sunday or Sunday from 8to 10am (Bring $30 to [facility]) SMOKIN G CESSATION* Smoking is dangerous to your health. It delays the healing process, andworks against your medications. Not smoking will improve your health* Our hospital participates with the Opt-to-Quit program. You will be contactedafter discharge by the [facility] Smoker's Quitline for support with tobaccocessation. You have the option once contacted to refuse this service.* You can also go online to www.[employer]MLogix. Free nicotine replacementsare available Attention* You should [...] rce(s) Supporting Document(s) ID Date Data Source [id number] 12/10/2019 02:15:00 AM EDT [address] [id number] NAME: BRUNA LEE Joe.RJayro#: [id number] PHYSICIAN: PRERNA RIOS MD ADM. DATE: 12/05/19PROGRESS NOTE DATE: 12/09/19 RM.#: [id number] #: [id number] NOTEIDENTIFICATION: A 34-year-old female with mood disorder [...] Dictated: 12/09/2019 10:52:52Date Transcribed: 12/10/2019 01:15:28JV/RAVJob #: [id number]: 12/09/19 1052 Electronically SignedTRANS:12/10/195 PRERNA RIOS MDTRANS BY:ADE SIGNED:12/10/19REPORT COPY TO: Name Value Range Interpretation Code Description Data [place] rce(s) Supporting Document(s) ID Date Data Source [id number] 12/08/2019 11:58:00 AM EDT [facility] Name Value Range Interpretation Code Description Data [place] rce(s) Supporting Document(s) URINE COLOR Yellow N [facility] UAPR Clear [facility] UGLU Negative NEGATIVE [facility] URINE BILIRUBIN Negative NEGATIVE [facility] UKET Negative NEGATIVE [facility] USG 1.015 1.010-1.025 [facility] UBLO Negative NEGATIVE N [facility] UpH 8.0 5.0-8.0 [facility] UPRO Negative Negative [facility] UUB 0.2 mg/dL 0.2-1.0 [facility] UNIT Negative Negative [facility] ULEU Negative Negative [facility] ID Date Data Source [id number] 12/09/2019 04:57:00 AM EDT [facility] [address] [id number] NAME: BRUNA LEE#: [id number] PHYSICIAN: PRERNA RIOS MD ADM. DATE: 12/05/19PROGRESS NOTE DATE: 12/08/19 .#: [id number] #: [id number] NOTEIDENTIFICATION: A 34-year-old female with mood disorder, [...] Dictated: 12/08/2019 10:30:51Date Transcribed: 12/09/2019 03:57:49JV/Basia #: [id number]: 12/08/19 1030 Electronically SignedTRANS:12/09/19 0457 PRERNA RIOS MDTRANS BY:IATDATE SIGNED:12/09/19REPORT COPY TO: Name Value Range Interpretation Code Description Data [place] rce(s) Supporting Document(s) ID Date Data Source [id number] 12/06/2019 11:02:00 PM EDT [place], [place] [address]PATIENT NAME: BRUNA LEE#: [id number] PHYSICIAN: PRERNA RIOS MD ADM. DATE: 12/05/19ACCOUNT #: [id number] .#: [id number] ASSESSMENTIDENTIFICATION: A 34-year-old female with schizoaffective disorder andpolysubstance dependence.CHIEF COMPLAINT: "I don't know why I am here."REASON FOR ADMISSION: Post-overdose.HISTORY OF PRESENT ILLNESS: According to the records and our interview, thepatient was brought to our service after being in ICU and the medical floorfor an overdose. The patient went to the outpatient clinic in [facility] and she passed out in consultation. She [...] 2 weeks ago, that she was in [place] inpatient service for 5 days forthat.The patient [...] into detail.SOCIAL HISTORY: The patient is from [place]. Did not finish high school.She is in [...] Dictated: 12/06/2019 12:22:47Date Transcribed: 12/06/2019 22:02:14JV/GBJob #: [id number]: 12/06/19 1222 Electronically Signed TRANS:12/06/19 2302 PRERNA RIOS MDTRANS BY:IATDAFUNMI SIGNED:12/07/19REPORT COPY TO: Name Value Range Interpretation Code Description Data [place] rce(s) Supporting Document(s) ID Date Data Source [id number] 12/05/2019 02:12:00 AM EDT [facility] Name Value Range Interpretation Code Description Data [place] rce(s) Supporting Document(s) CKI 109 U/L 17-150 N [facility] ID Date Data Source [id number] 12/05/2019 04:49:00 PM EDT [facility] [address] HEALTH HISTORY AND PHYSICALPATIENT NAME: BRUNA LEE MR#: [id number] PHYSICIAN: PRERNA RIOS MDAUTHOR: Ximena HERNANDEZ, Diogenes [...] [facility]Past Medical/Surgical HistoryPast Medical/Surgical HistoryMedical ProblemsAcute [...] rce(s) Supporting Document(s) ID Date Data Source [id number] 12/05/2019 09:48:00 AM EDT [address] [id number] SUMMARYPATIENT NAME: BRUNA LEE MR#: [id number] PHYSICIAN: BEHZAD HOGAN MDAUTHOR: Diogenes Bueno MD DATE: 12/04/19 RM#: [id number] DATE: 12/05/19 : 87Summary of HospitalizationReason for AdmissionOverdose on xanax, gabapentin, bath saltsHospital Gjhdci65 yo F who was admitted for an [...] and the [facility].Diagnoses (Current Visit)Problem List1. Drug overdose2. [...] taking the following medications:Gabapentin* (Neurontin*) 400 MG [id number] MILLIGRAM Orally DAILYContinue taking these medications:LEVETIRACETAM (LEVETIRACETA) 1,000 MG TABLET1,000 MILLIGRAM Orally TWICE DAILYQty = 60Amitriptyline HCl (Amitriptyline HCl) 100 MG [id number] MILLIGRAM Orally DAILYSUCRALFATE (Carafate*) 1 GM TABLET1 GM Orally TWICE DAILYcloniDINE* (CLONIDINE*) 0.1 MG TABLET0.1 MILLIGRAM Orally TWICE DAILYOmeprazole Magnesium (Prilosec Otc) 20 MG TABLET.DR20 MILLIGRAM Orally DAILYrispERIdone (RISPERDAL*) 0.5 MG TABLET2 MILLIGRAM Orally TWICE DAILYATOMOXETINE HCL (Strattera) 18 MG [id number] MILLIGRAM Orally DAILYBUPRENORPHINE HCL/NALOXONE HCL (Suboxone 8 MG-2 MG Sl Film) 1 EACH FILM1 MILLIGRAM SublinguallySUMATRIPTAN SUCCINATE (Imitrex*) 50 MG [id number] MILLIGRAM Orally DAILY NEEDED as needed for HeadacheOxcarbazepine (Trileptal) 150 MG [id number] MILLIGRAM Orally TWICE DAILYDischarge Activity: As tolerated, No liftingDischarge diet: RegularFollow-upFollow up with the mental health doctor [facility]Time spent by provider to complete discharge > 30 minutesDATE SIGNED: 12/05/19 Electronically SignedTIME SIGNED: 1912 DIOGENES BUENO MD Name Value Range Interpretation Code Description Data [place] rce(s) Supporting Document(s) ID Date Data Source [id number] 12/05/2019 09:46:00 AM EDT [address] [place], [place] [address]UBKMBPA NAME: BRUNA LEE Joe Orellana#: [id number] PHYSICIAN: BEHZAD HOGAN [facility] #: [id number] ADM. DATE: 12/04/19PATIENT : 89 DISCH. DATE: [50}DISCHARGE SUMMARYMedical Discharge PlanNicotine Replacement TherapyPrescribed at discharge Rx not offered at DCReason not offered [facility] Care InstructionsDischarge Activity: As tolerated, No liftingDischarge diet: RegularProblem ListMedical ProblemsAcute respiratory failure (Acute)Drug abuse (Chronic)Drug overdose (Acute)SchizophreniaSeizure disorder (Chronic, 12/20/18)Follow Up CareFollow Up:Follow up with the mental health doctor [facility]Priority ItemsUrgent/Important items that need to be addressed at primary care follow-upappointmentPLEASE AVOID GABAPENTIN/XANAX/BATH SALTS IN THE FUTUREDischarge InformationDISCHARGE INFORMATION* Thank you for choosing [facility] and allowing us toserve you* Our [...] Hour Crisis HOTLINE available: Call [employer] at [phone] SMOKING CESSATION* Smoking is dangerous to your health. It delays the healing process, andworks against your medications. Not smoking will improve your health* Our hospital participates with the Opt-to-Quit program. You will be contactedafter discharge by the [facility] Smoker's Quitline for support with tobaccocessation. You have the option once contacted to refuse this service.* You can also go online to www.VMLogix. Free nicotine replacementsare available Attent ion* You [...] rce(s) Supporting Document(s) ID Date Data Source [id number] 12/06/2019 02:37:00 AM EDT [facility] [address] [address]LRWYAOY NAME: BRUNA LEE#: [id number] PHYSICIAN: BEHZAD HOGAN MD ADM. DATE: 12/04/19CONSULTING PHYSICIAN: PRERNA RIOS MD .#: ICUACCOUNT #: [id number] REPORTIDENTIFICATION: A 34-year-old female with mood disorder. This is a shortconsultation for a 34-year-old female who was unresponsive. The patient is inICU and at this point it is not clear the reason for an overdose.According to the records, the patient has a history of seizures, GERD, carpaltunnel, adjustment disorder, anxiety, depression, PTSD, and ADHD. Accordingto the records, the patient went to [facility] for an evaluation. Shehad an overdose. Was unconscious and at that point, according to the records,she stated that she injected bath salts in the morning, that is when shebecame unconscious and it is not clear who called the EMS that brought her [facility]. The patient has poor response to [...] the lastthing she remembers is being at [place] so she is oriented to person, not [...] Dictated: 12/05/2019 09:24:19Date Transcribed: 12/06/2019 01:37:33JV/GBJob #: [id number]: 12/05/19 0924 Electronically SignedTRANS:12/06/19 0237 PRERNA RIOS MDTRANS BY:ADE SIGNED:12/09/19REPORT COPY TO: Name Value Range Interpretation Code Description Data [place] rce(s) Supporting Document(s) ID Date Data Source [id number] 12/05/2019 08:01:00 AM EDT [facility] Patient: COME, BRUNA Observation Repor t - Physicians/Mid Levels HospitalVisitID: [id number] [place] [address] [phone], FRegistration Date/Time: 12/04/2019 15:46 Weight:68.4 kg (E). [...] Marie Euceda 12/04/2019 20:43) AddBRUNA Conteh VisitID: [id number] Date: 12/04/2019 12/05/2019 7:59Spoke to [facility] nurse Deborah who wanted to come to [place] to see patient. Advised Deborah that the patient was transferred [facility]. (Electronically signed by Allyssa Paredes R.N. - 12/05/2019 7:59) Name Value Range Interpretation Code Description Data [place] rce(s) Supporting Document(s) ID Date Data Source [id number] 12/05/2019 07:34:00 AM EDT [facility] Name Value Range Interpretation Code Description Data [place] rce(s) Supporting Document(s) GLU 76 mg/dL 70-110 [facility] Patients taking Sulfasalazine may have f alsely depressedGlucose levels. Patients taking Sulfapyridine may havefalsely elevated Glucose levels. Patients should be drawnfor Glucose before the initial administration of eitherdrug. BUN 7 mg/dL 7-23 [facility] CRE 0.500 mg/dL 0.500-1.300 [facility] GFR > 60 mL/min [facility] CHLORIDE 117 mmol/L 99-110 [facility] NA 146 mmol/L 136-147 [facility] POTASSIUM 3.5 mmol/L 3.5-5.1 [facility] TCO2 22 mmol/L 20-33 [facility] ANION GAP 10.5 10.0-20.0 [facility] CA 7.8 mg/dL 8.3-10.7 [facility] ALKALINE PHOS 59 U/L 45-117 [facility] TP 5.7 g/dL 6.0-7.8 [facility] ALB 2.6 g/dL 3.5-5.0 [facility] ESRD Dialysis patient Albumin reference range: 2.9-4.4 g/dL GL 3.1 g/dL 2.3-3.5 [facility] A/G 0.8 1.0-2.5 [facility] T. BILIRUBIN 0.3 mg/dL 0.1-1.1 [facility] Total Bilirubin is n ot recommended forpatients undergoing treatment with eltrombopag (Promacta)due to the potential for falsely elevated results. ALTI 15 U/L 6-54 [facility] Patients taking Sulfasalazine and/or Sul fapyridine may havefalsely depressed ALT levels. Patients should be drawn forALT before the initial administration of either drug. AST 26 U/L 6-38 [facility] Patients taking Sulfasalazine and/or Sul fapyridine may havefalsely depressed AST levels. Patients should be drawn forAST before the initial administration of either drug. ID Date Data Source [id number] 12/05/2019 07:08:00 AM EDT [facility] Name Value Range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 [facility] Emergency Department [address] [place] [address] Phone #: ext- [phone] 11/07/2019 00:19 Patient: [...] Oral. 7 Clinical Report - Physicians/Mid Levels [facility] Emergency Department [address] [place] [address] Phone #: ext- [phone] 11/07/2019 00:19 Patient: [...] rce(s) Supporting Document(s) ID Date Data Source [id number] 11/07/2019 03:20:00 AM EDT [facility] Name Value Range Interpretation Code Description Data [place] rce(s) Supporting Document(s) HCG SERUM QUAL NEGATIVE NORMAL: NEGATIVE [facility] HCG SERUM QL REENTER NEGATIVE NORMAL: NEGATIVE [facility] { KIT LOT # [id number] ){ KIT EXP DATE 12-08-20 ){ PROCEDURAL CONTROL VALID ) ID Date Data Source [id number] 11/07/2019 03:15:00 AM EDT [facility] Name Value Range Interpretation Code Description Data [place] rce(s) Supporting Document(s) Creatine kinase [Enzymatic activity/volume] in Serum or Plasma 3 13 U/L 30 - 170 H [facility] ID Date Data Source [id number] 11/07/2019 03:14:00 AM EDT [facility] Name Value Range Interpretation Code Description Data [place] rce(s) Supporting Document(s) COMPREHENSIVE METABOLIC PANEL [facility] COMPREHENSIVE METABOLIC PANEL Sodium [Moles/volume] in Serum or Plasma 140 mEq/L 134 - 153 [facility] Potassium [Moles/volume] in Serum or Plasma 3.8 mEq/L 3.6 - 5.0 [facility] Chloride [Moles/volume] in Serum or Plasma 100 mEq/L 98 - 107 [facility] Carbon dioxide, total [Moles/volume] in Serum or Plasma 30 MEQ/L 22 - 30 [facility] Glucose [Mass/volume] in Serum or Plasma 98 MG/DL 65 - 110 [facility] BUN 14 MG/DL 7 - 21 [facility] Creatinine [Mass/volume] in Serum or Plasma 0.7 MG/DL 0.7 - 1.5 [facility] BUN/CREAT 20 8 - 27 [facility] Protein [Mass/volume] in Serum or Plasma 5.9 G/DL 6.3 - 8.2 L [facility] Albumin [Mass/volume] in Serum or Plasma 3.6 G/DL 3.9 - 5.0 L [facility] Globulin [Mass/volume] in Serum by calculation 2.3 GM/DL 2.4 - 3.2 L [facility] A/G RATIO 1.6 0.8 - 2.0 [facility] Calcium [Mass/volume] in Serum or Plasma 9.2 MG/DL 8.4 - 10.2 [facility] Bilirubin.total [Mass/volume] in Serum or Plasma <0.7 MG/DL 0.2 - 1.3 [facility] Alkaline phosphatase [Enzymatic activity/volume] in Serum or Plasma 62 U/L 38 - 126 [facility] Aspartate aminotransferase [Enzymatic activity/volume] in Serum or Plasma 302 U/L 5 - 40 H [facility] Alanine aminotransferase [Enzymatic activity/volume] in Seru m or Plasma 125 U/L 7 - 56 H [facility] Anion gap 3 in Serum or Plasma 10.0 mmol/L 8.0 - 16.0 [facility] AGE 34 yrs [facility] al NON-AA GFR >60 mL/min [facility] ital AFR AMER GFR >60 mL/min [facility] Ho spital Male GFR In terprentation [...] >32 mL/min Normal ID Date Data Source [id number] 11/07/2019 02:27:00 AM EDT [facility] Name Value Range Interpretation Code Description Data [place] rce(s) Supporting Document(s) CBC W/AUTOMATED DIFF [facility] COMPLETE BLOOD COUNT Leukocytes [#/volume] in Blood by Automated count 8.3 10^3/uL 4.2 - 1 1.0 [facility] Erythrocytes [#/volume] in Blood by Automated count 3.87 10^6/uL 4. 20 - 5.40 L [facility] Hemoglobin [Mass/volume] in Blood 11.6 g/dL 12.0 - 16.0 L [facility] Hematocrit [Volume Fraction] of Blood by Automated count 36.0 % 3 7.0 - 47.0 L [facility] Erythrocyte mean corpuscular volume [Entitic volume] by Auto mated count 93.0 fL 81.0 - 101 [facility] Erythrocyte mean corpuscular hemoglobin [Entitic mass] by Automated count 30.0 pg 27.0 - 34.0 [facility] Erythrocyte mean corpuscular hemoglobin concentration [Mass/volume] by Automated count 32.2 g/dL 31.0 - 36.0 [facility] Erythrocyte distribution width [Ratio] by Automated count 13.3 % 11.5 - 14.5 [facility] Platelets [#/volume] in Blood by Automated count 271 10^3/uL 150 - 45 0 [facility] Platelet mean volume [Entitic volume] in Blood by Automated count 9.5 fL 7.4 - 10.4 [facility] Neutrophils/100 leukocytes in Blood by Automated count 82.6 % 37. 0 - 80.0 H [facility] Lymphocytes/100 leukocytes in Blood by Manual count 14.3 % 25.0 - 40.0 L [facility] Monocytes/100 leukocytes in Blood by Automated count 1.6 % 3.0 - 8.0 L [facility] Eosinophils/100 leukocytes in Blood by Automated count 0.8 % 0.0 - 7.0 [facility] Basophils/100 leukocytes in Blood by Automated count 0.2 % 0.0 - 2.5 [facility] %IG 0.5 % 0.0 - 0.0 H [facility] %NRBC 0.0 % 0.0 - 0.0 [facility] al Neutrophils [#/volume] in Blood by Automated count 6.85 10^3/uL 2.00 - 6.90 [facility] Lymphocytes [#/volume] in Blood by Automated count 1.19 10^3/uL 0.60 - 3.40 [facility] Monocytes [#/volume] in Blood by Automated count 0.13 10^3/uL 0.00 - 0.90 [facility] Eosinophils [#/volume] in Blood by Automated count 0.07 10^3/uL 0.00 - 0.70 [facility] Basophils [#/volume] in Blood by Automated count 0.02 10^3/uL 0.00 - 0.20 [facility] #IG 0.04 10^3/uL 0.00 - 0.10 [facility] ospital #NRBC 0.00 10^3/uL 0.00 - 0.00 [facility] ospital MANUAL DIFF NOT INDICATED [facility] RBC MORPH NOT INDICATED [facility] ID Date Data Source [id number] 11/07/2019 03:14:00 AM EDT [facility] Name Value Range Interpretation Code Description Data [place] rce(s) Supporting Document(s) DRUG SCREEN URINE [facility] URINE DRUG SCREEN Amphetamine [Presence] in Urine by Screen method PRESUMP POS LISANDRA L: NEGATIVE [facility] BARBITURATES NEGATIVE NORMAL: NEGATIVE [facility] BENZO NEGATIVE NORMAL: NEGATIVE [facility] COCAINE NEGATIVE NORMAL: NEGATIVE [facility] Tetrahydrocannabinol [Presence] in Urine NEGATIVE NORMAL: NEGATIVE [facility] OPIATES NEGATIVE NORMAL: NEGATIVE [facility] Phencyclidine [Presence] in Urine by Screen method NEGATIVE NOR MAL: NEGATIVE [facility] \\BLDo\\URINE DRUG SCR EEN INTERPRETATION\\BLDx\\ THE CUTOFFF LEVELS FOR DETECTION ARE FOLLOWS: AMPHETAMINES 1000 ng/ml BARBITUARATES 200 ng/ml BENZODIAZEPINES 100 ng/ml THC 50 ng/ml PHENCYCLIDINE 25 ng/ml OPIATES 300 ng/ml COCAINE 300 ng/ml ALL POSITIVES ARE CONSIDERED PRESUMPTIVE POSITIVE CONFIRMATION WILL BE PERFORMED AT PHYSICIAN REQUEST. ID Date Data Source [id number] 11/07/2019 02:27:00 AM EDT [facility] Name Value Range Interpretation Code Description Data [place] rce(s) Supporting Document(s) UR[facility]ALYSIS [facility] james URINALYSIS SOURCE R [facility] COLOR yellow NORMAL: Yellow [facility] ospital CLARITY clear NORMAL: Clear [facility] Specific gravity of Urine by Test strip 1.020 1.001 - 1.030 [facility] pH 6 5 - 9 [facility] al Glucose [Mass/volume] in Urine by Test strip NORM NORMAL: Negat [facility] Bilirubin.total [Presence] in Urine by Test strip NEG NORMAL: Negative [facility] Ketones [Presence] in Urine by Test strip NEG NORMAL: Negative [facility] Protein [Mass/volume] in Urine by Test strip NEG NORMAL: Negat [facility] Nitrite [Presence] in Urine by Test strip NEG NORMAL: Negative [facility] BLOOD NEG NORMAL: Negative [facility] Leukocyte esterase [Presence] in Urine by Test strip NEG LISANDRA L: Negative [facility] Urobilinogen [Mass/volume] in Urine by Test strip 1 less kenna n 1.0 mg/dL [facility] MICROSCOPIC Not Indicate [facility] ID Date Data Source [id number] 10/30/2019 10:27:00 AM EDT [facility] Name Value Range Interpretation Code Description Data [place] rce(s) Supporting Document(s) BG FASTING 132 mg/dL 70-100 H [facility] Health TSH 0.526 microintl units/mL 0.358-3.740 N [facility] Family [facility] ID Date Data Source [id number] 10/30/2019 10:27:00 AM EDT [facility] Name Value Range Interpretation Code Description Data [place] rce(s) Supporting Document(s) HCT 37.6 % 36.0-47.0 N [facility] HGB 11.8 g/dL 12.0-15.5 L [facility] MCH 31.4 G/DL pg 32.0-36.5 L [facility] MCHC 29.9 PG % 27.0-33.0 N [facility] PLATELETS 209 10 10*3/mm3 150-450 N [facility] RBC 3.94 10 10*6/mm3 4.00-5.40 L [facility] RDW 12.6 % 11.5-14.5 N [facility] WBC TOTAL 4.5 4.0-10.0 N [facility] ID Date Data Source [id number] 10/13/2019 03:25:00 PM EDT [facility] Name Value Range Interpretation Code Description Data [place] rce(s) Supporting Document(s) HCT 40.7 % 36.0-47.0 N [facility] HGB 13.3 g/dL 12.0-15.5 [facility] MCH 32.7 G/DL pg 32.0-36.[address] [facility] MCHC 30.4 PG % 27.0-33.0 [facility] PLATELETS 288 10 10*3/mm3 150-450 N [facility] RBC 4.37 10 10*6/mm3 4.00-5.40 [facility] RDW 12.4 % 11.5-14.5 [facility] WBC TOTAL 8.7 4.0-10.0 [facility] ID Date Data Source [id number] 10/09/2019 02:09:00 AM EDT [facility] 1 OrderSheet [facility] Emergency Department [address] [place] [address] Phone #: ext- [phone] 10/09/2019 02:08 Patient: [...] rce(s) Supporting Document(s) ID Date Data Source [id number] 10/09/2019 02:09:00 AM EDT [facility] 1 Medication Reconciliation Report [facility] Emergency Department [address] [place] [address] Phone #: ext- [phone] 10/09/2019 02:08 Patient: [...] rce(s) Supporting Document(s) ID Date Data Source [id number] 10/09/2019 02:09:00 AM EDT [facility] 1 Medication Administration Record [facility] Emergency Department [address] [place] [address] Phone #: ext- [phone] 10/09/2019 02:08 Patient: BRUNA LEE Sex: F : 1985 Age: 34yWeight: 81.1 kgHeight/Length: 60 inBMI: 34.9ALLERGIES: Penicillins, Sulfa Antibiotics Date/Time Medication Administered Medication OrderedGiven IBUPROFEN [PO] Ibuprofen 800 mg PO X1 dose: 91384:39 10/09/2019 Dose: 800 mg Tablets PO mg (NOW x1)Meme Maldonado R.N. Name Value Range Interpretation Code Description Data [place] rce(s) Supporting Document(s) ID Date Data Source [id number] 10/09/2019 02:09:00 AM EDT [facility] 1 General Instructions [facility] Emergency Department [address] [place] [address] Phone #: ext [phone] 10/09/2019 02:08 Patient: BRUNA LEE Sex: F [...] INFORMATIONViral Pharyngitis (Sore Throat) 2 General Instructions [facility] Emergency Department [address] [place] [address] Phone #: ext- [phone] 10/09/2019 02:08 Patient: [...] glass of warm water. 3 General Instructions [facility] Emergency Department [address] [place] [address] Phone #: ext- [phone] 10/09/2019 02:08 Patient: [...] breathing or noisy breathing 4 General Instructions [facility] Emergency Department [address] [place] [address] Phone #: ext- [phone] 10/09/2019 02:08 Patient: BRUNA LEE Sex: F : 1985 Age: 34y Muffled voice New rash Other symptoms are getting worse [id number] [employer] [address] [place] [address]. All rights reserved. This information is not intended as asubstitute for professional medical care. Always follow your healthcare professional's instructions. You have been given the following additional information: Pharyngitis, Viral(Electronically signed by Evonne Hagen M.D. 10/09/2019 03:51) Name Value Range Interpretation Code Description Data [place] rce(s) Supporting Document(s) ID Date Data Source [id number] 10/09/2019 02:09:00 AM EDT [facility] 1 Clinical Report - Nurses [facility] Emergency Department [address] [place] [address] Phone #: ext- [phone] 10/09/2019 02:08 Patient: BRUNA LEE Sex: F : 1985 Age: 34yTRIAGEHistorian: EMS and patient.Triage time: 02:08 10/09/2019.Chief Complaint: SORE THROAT.This started just prior to arrival. The patient has had a hoarse voice.Treatment [employer]ICE:Took Tylenol. (arthritis kind).EMS Treatment ASSOCIATE JUSTICE:See EMS report.SEPSIS SCREEN: SIRS Screen: heart rate greater than 90. Sepsis Screen negative. No suspected orconfirmed signs of infection present. --02:14 10/09/19 Meme Maldonado R.N.02:10/09/19. BP: 130/86. MAP: 100. HR: 105. RR: 18. O2 saturation: 100%. Temp: 98.5 F. Pain levelnow: 12/05. --02:14 10/09/19 Meme Maldonado R.N.Treatment [employer]OCIATE JUSTICE:(Seen at [facility] for this issue within the [...] Maldonado R.N.AllergiesPenicillins.(hives) 2 Clinical Report - Nurses [facility] Emergency Department [address] [place] [address] Phone #: ext- [phone] 10/09/2019 02:08 [id number] Sex: F : 1985 Age: 34y Sulfa [...] Dental decay. 3 Clinical Report - Nurses [facility] Emergency Department [address] [place] [address] Phone #: ext- [phone] 10/09/2019 02:08 Patient: [...] Patient verbalized understanding. Written instructions provided in Welsh. The patient was discharged by the physician. [...] rce(s) Supporting Document(s) ID Date Data Source [id number] 10/09/2019 02:09:00 AM EDT [facility] 1 Clinical Report - Physicians/Mid Levels [facility] Emergency Department [address] [place] [address] Phone #: ext- [phone] 10/09/2019 02:08 Patient: [...] (per EMS, pt is well known to [facility] ER for multiple ER visits for multiple somatic and psychiatric complaints; tonight, she complains of sore throat, hoarse voice, bugs on her skin, etc.; pt has therapist in [place]). Similar symptoms previously. Patient has had similar [...] Medications: 2 Clinical Report - Physicians/Mid Levels [facility] Emergency Department [address] [place] [address] Phone #: ext- [phone] 10/09/2019 02:08 Patient: [...] PROCEDURAL CONTROL VALID ){ KIT LOT # [id number] ){ KIT EXP DATE [id number] )The 3 Clinical Report - Physicians/Mid Levels [facility] Emergency Department [address] [place] [address] Phone #: ext- [phone] 10/09/2019 02:08 Patient: [...] thepharmacies. This report was requested by: Evonne Hgaen Reference #: [id number] Others' Prescriptions Patient Name: Bruna LeeBirth Date: 1985 Address: [address] [place] [id number]: Female Rx Written Rx Dispensed Drug Quantity [...] film 56 28 MoehJose J hopson MD [facility] 05/01/2019 05/01/2019 buprenorphine-naloxone 8-2 [...] #15 4 Clinical Report - Physicians/Mid Levels [facility] Emergency Department [address] [place] [address] Phone #: [phone]- [phone] 10/09/2019 02:08 Patient: BRUNA LEE Sex: F [...] unknown*. 5 Clinical Report - Physicians/Mid Levels [facility] Emergency Department [address] [place] [address] Phone #: ext- [phone] 10/09/2019 02:08 Patient: [...] Name Value Range Interpretation Code Description [facility] Document(s) ID Date Data Source [id number] 10/09/2019 03:02:00 AM EDT [facility] Name Value Range Interpretation Code Description Data [place] rce(s) Supporting Document(s) RAPID STREP NEGATIVE NORMAL: NEGATIVE [facility] RAPID STREP REENTER NEGATIVE NORMAL: NEGATIVE [facility] { PROCEDURAL CONTROL VALID ){ KIT LOT # [id number] ){ KIT EXP DATE [id number] )The Strep A 2 assay utilizes isothermal [...] basis for treatment. ID Date Data Source [id number] 09/22/2019 02:34:28 PM EDT [facility] Measurements & CalculationsHeight: 61 inches (5 [...] (ER) or urgent care clinic? Yes - [facility] Have you seen another healthcare provider? Yes - [facility] Have you seen a dentist? NoIntake [...] this is different. Sees [facility] health [facility] for her mental health issues (schizophrenia) and feels that this is going well.HPI performed by: Francesco Ritchie MD, September 22, 2019 2:52 PMTransitions of Care InboundProblem ReviewProblem List was reviewed and/or updated during this visit.Medication Reconciliation & ReviewMedication List was reviewed and/or updated during this visit, including review of any suly-yoy-ahdildc medications, herbal therapies, and/or supplements.Allergy ReviewAllergy List [...] Plan Problems:Added: Hematemesis - cause unknown (ICD-578.0) (QPQ25-V21.0) Assessment: Instructions: Currently asymptomatic but worrisome enough to warrant further workup.Avoid NSAIDs and refer to GI.Return to ER if this occurs again.Assessed:Peripheral neuropathy (ICD-356.9) (BJM40-Q06.9) Assessment: Instructions: I am not sure where [...] (Critical)Orders:Adult - Ofc Vst, EST, Level III [CPT-21166] Gastroenterology Consult [CPT-37422] Medications:GABAPENTIN 400 MG ORAL CAPSULE (GABAPENTIN) take one tablet by mouth three times daily as needed #90[Capsule] x 0 Route:ORAL Entered and Authorized by: Francesco Ritchie MD Method used: Electronically to [facility] (retail) [address] [place] [address] Note to Pharmacy: Route: ORAL; Indications: PERIPHERAL NEUROPATHY;BILATERAL CARPAL TUNNEL SYNDROME RxID: [id number] 1000 MG ORAL TABLET (LEVETIRACETAM) 1 pill po bid #60[Tablet] x 0 Route:ORAL Entered and Authorized by: Francesco Ritchie MD Method used: Electronically to [facility] (retail) [address] [place] [address] Note to Pharmacy: Route: ORAL; RxID: [id number] SUCCINATE 50 MG ORAL TABLET (SUMATRIPTAN SUCCINATE) take one tab po at the onset of headache. may repeat dose x one if no releif after two hours. #15[Tablet] x 0 Entered and Authorized by: Francesco Ritchie MD Method used: Electronically to [facility] (retail) [address] [place] [address] RxID: [id number] OMEPRAZOLE 20 MG ORAL TABLET DELAYED RELEASE (OMEPRAZOLE) One tablet by mouth every day #30[Tablet] x 2 Route:ORAL Entered and Authorized by: Francesco Ritchie MD Method used: Electronically to [facility] (retail) [address] [place] [address] Note to Pharmacy: Route: ORAL; RxID: [id number] DOXYCYCLINE MONOHYDRATE 100 MG ORAL TABLET (DOXYCYCLINE MONOHYDRATE) take one tablet by mouth twice daily x 5 days #10[Tablet] x 0 Route:ORAL Entered by: Demetria Elliott MA Authorized by: Mavis DIEGO Method used: Electronically to [facility] (retail) [address] [place] [address] RxID: [id number] signed by Francesco Ritchie MD on 09/22/2019 at 5:42 PM Name Value Range Interpretation Code Description Data [place] rce(s) Supporting Document(s) ID Date Data Source [id number] 09/10/2019 10:45:00 PM EDT [facility] Name Value Range Interpretation Code Description Data [place] rce(s) Supporting Document(s) BG FASTING 96 mg/dL 70-100 [facility] ID Date Data Source [id number] 09/10/2019 10:45:00 PM EDT [facility] Name Value Range Interpretation Code Description Data [place] rce(s) Supporting Document(s) HCT 37.4 % 36.0-47.0 [facility] HGB 12.1 g/dL 12.0-15.5 [facility] MCH 32.4 G/DL pg 32.0-36.5 [facility] MCHC 30.2 PG % 27.0-33.0 [facility] PLATELETS 244 10 10*3/mm3 150-450 [facility] RBC 4.01 10 10*6/mm3 4.00-5.40 [facility] RDW 12.8 % 11.5-14.5 [facility] WBC TOTAL 4.9 4.0-10.0 [facility] ID Date Data Source [id number] 05/20/2019 11:42:55 AM EDT [facility] Measurements & CalculationsHeight: 61 inches (5 [...] you seen another healthcare provider? Yes - [facility] Have you seen a dentist? NoRate [...] during this visit, including review of any okgl-cha-mweizzu medications, herbal therapies, and/or supplements.Allergy ReviewAllergy List [...] Problems:Added: Phlebitis and thrombophlebitis of unspecified site (GDT90-K33.9): right AC and right tibia Assessment: Instructions: May continue warm compresses 3-4 times daily as needed. Please try to keep extremities elevated. We have sent a prescription to your pharmacy today. Please take medication as prescribed. Please report any major side effects.Phlebitis and thrombophlebitis of unspecified site (FRP66-V37.9): right AC and right tibia Assessment: right foot and right forearmAssessed:Tobacco use (ICD-305.1) (XKU66-J43.0) Assessment: Instructions: Please continue to try to quit smoking.Health Screening (ICD-V70.0) (AEW32-H68.9) Assessment: Instructions: Fasting labs ordered for you today. Please return prior to your next visit to have labs drawn. Please fast for 8-10 hours prior.Substance abuse (ICD-305.90) (RKL34-H22.10) Assessment: Instructions: Please try to avoid the [...] (Critical)BACTRIM (Critical)* SULFA ANTIBIOTICS (Critical)Orders:COMP METABOLIC PANEL [CPT-51181] CBC W/DIFF [CPT- 85789] HgBA1c [CPT-97406] LIPID PANEL [CPT-19226] TSH [CPT-32558] T-4 free [CPT- 40765] Vitamin D 250H Unspecified [CPT-83836] URINALYSIS [CPT-58390] VITAMIN B- 12 [CPT-50556] Folate (Folic Acid Serum) [CPT-64408] IRON [CPT-06157] Adult - Ofc Vst, EST, Level III [CPT-93958] Follow-Up Return to clinic: 2-3 weeks for follow up Additional Follow-Up: If symptoms worsen, please return to clinic or the ERClinical Visit Summary CompletedMedications:DOXYCYCLINE MONOHYDRATE 100 MG ORAL TABLET (DOXYCYCLINE MONOHYDRATE) take one tablet by mouth twice daily x 5 days #10[Tablet] x 0 Route:ORAL Entered and Authorized by: Mavis DIEGO Method used: Electronically to [facility] (retail) [address] [place] [address] Note to Pharmacy: Route: ORAL; Indications: PHLEBITIS AND THROMBOPHLEBITIS OF UNSPECIFIED SITE RxID: [id number] signed by Mavis DIEGO on 05/24/2019 at 11:37 PM ____ Name Value Range Interpretation Code Description Data [place] rce(s) Supporting Document(s) Procedure Social History Code Duration Value Status Description Data Source(s ) Smoking 03/01/2020 12:00:00 AM EST Current Smoker completed Curre nt Smoker eCW1 ([facility]) Smoking 03/01/2020 12:00:00 AM EST Current Smoker completed Curre nt Smoker eCW1 ([facility]) Smoking 03/01/2020 12:00:00 AM EST Current Smoker completed Curre nt Smoker eCW1 ([facility]) Smoking 02/18/2020 12:00:00 AM EST Current Smoker completed Curre nt Smoker eCW1 ([facility]) Smoking 12/24/2019 12:00:00 AM EDT Current Smoker completed Curre nt Smoker eCW1 ([facility]) Smoking 12/24/2019 12:00:00 AM EDT Current Smoker completed Curre nt Smoker eCW1 ([facility]) Smoking 12/24/2019 12:00:00 AM EDT Current Smoker completed Curre nt Smoker eCW1 ([facility]) Smoking 12/24/2019 12:00:00 AM EDT Current Smoker completed Curre nt Smoker eCW1 ([facility]) Smoking 12/24/2019 12:00:00 AM EDT Current Smoker completed Curre nt Smoker eCW1 ([facility]) Smoking 12/24/2019 12:00:00 AM EDT Current Smoker completed Curre nt Smoker eCW1 ([facility]) Smoking 12/24/2019 12:00:00 AM EDT Current Smoker completed Curre nt Smoker eCW1 ([facility]) Smoking 10/31/2019 12:00:00 AM EDT Current Smoker completed Curre nt Smoker eCW1 ([facility]) Smoking 10/31/2019 12:00:00 AM EDT Current Smoker completed Curre nt Smoker eCW1 ([facility]) Smoking 10/31/2019 12:00:00 AM EDT Current Smoker completed Curre nt Smoker eCW1 ([facility]) Vital Signs ID Date Data Source UNK Name Value Range Interpretation Code Description Data Source(s) Oxygen saturation in Arterial blood by Pulse oximetry 99 % 99 % eCW1 ([facility]) Respiratory rate 18 /min 18 /min eCW1 ([facility]) Heart rate 93 /min 93 /min eCW1 ([facility]) Body mass index (BMI) [Ratio] 35.27 kg/m2 35.27 kg/m2 eCW1 ([facility]) Body weight 180.6 [lb_av] 180.6 [lb_av] eCW1 ([facility]) Body height 60 [in_i] 60 [in_i] eCW1 ([facility]) Oxygen saturation in Arterial blood by Pulse oximetry 97 % 97 % eCW1 ([facility]) Respiratory rate 18 /min 18 /min eCW1 ([facility]) Heart rate 89 /min 89 /min eCW1 ([facility]) Body mass index (BMI) [Ratio] 36.48 kg/m2 36.48 kg/m2 eCW1 ([facility]) Body weight 186.8 [lb_av] 186.8 [lb_av] eCW1 ([facility]) Body height 60 [in_i] 60 [in_i] eCW1 ([facility]) Body height 60 [in_i] 60 [in_i] eCW1 ([facility]) Oxygen saturation in Arterial blood by Pulse oximetry 98 % 98 % eCW1 ([facility]) Respiratory rate 18 /min 18 /min eCW1 ([facility]) Heart rate 86 /min 86 /min eCW1 ([facility]) Body temperature 98.0 [degF] 98.0 [degF] eCW1 ( [facility]) Body mass index (BMI) [Ratio] 32.10 kg/m2 32.10 kg/m2 eCW1 ([facility]) Body weight 164.4 [lb_av] 164.4 [lb_av] eCW1 ([facility]) Oxygen saturation in Arterial blood by Pulse oximetry 99 % 99 % eCW1 ([facility]) Respiratory rate 18 /min 18 /min eCW1 ([facility]) Heart rate 100 /min 100 /min eCW1 ([facility]) Body temperature 98.7 [degF] 98.7 [degF] eCW1 ( [facility]) Body mass index (BMI) [Ratio] 30.70 kg/m2 30.70 kg/m2 eCW1 ([facility]) Body weight 157.2 [lb_av] 157.2 [lb_av] eCW1 ([facility]) Body height 60 [in_i] 60 [in_i] eCW1 ([facility]) ID Date Data Source [id number] 12/26/2019 01:56:00 PM EDT [facility] Name Value Range Interpretation Code Description Data Source(s) WEIGHT 72.3 kilos 72.3 kilos [facility] HEIGHT 152.4 centimeters 152.4 centimeters [facility] WEIGHT 75 kilos 75 kilos [facility] HEIGHT 152.4 centimeters 152.4 centimeters [facility] ID Date Data Source [id number] 12/10/2019 06:07:00 AM EDT [facility] Name Value Range Interpretation Code Description Data Source(s) WEIGHT 68 kilos 68 kilos [facility] HEIGHT 152.4 centimeters 152.4 centimeters [facility] WEIGHT 68.4 kilos 68.4 kilos [facility] HEIGHT 152.4 centimeters 152.4 centimeters [facility] ID Date Data Source [id number] 12/08/2019 01:43:00 PM EDT [facility] Name Value Range Interpretation Code Description Data Source(s) WEIGHT 75 kilos 75 kilos [facility] HEIGHT 152.4 centimeters 152.4 centimeters [facility] ID Date Data Source [id number] 12/08/2019 01:43:00 PM EDT [facility] Name Value Range Interpretation Code Description Data Source(s) WEIGHT 74 kilos 74 kilos [facility] HEIGHT 160.02 centimeters 160.02 centimeter [facility] Patient Treatment Plan of Care Planned Activity Planned Date Details Description Data Source (s) Clonidine Hydrochloride 0.2 MG Oral Tablet 12/24/2019 12:00:00 AM E DT eCW1 ([facility]) Clonidine Hydrochloride 0.2 MG Oral Tablet 12/24/2019 12:00:00 AM E DT eCW1 ([facility]) Clonidine Hydrochloride 0.2 MG Oral Tablet 12/24/2019 12:00:00 AM E DT eCW1 ([facility]) Clonidine Hydrochloride 0.2 MG Oral Tablet 12/24/2019 12:00:00 AM E DT eCW1 ([facility]) lisdexamfetamine dimesylate 50 MG Oral Capsule [Vyvans e] 11/04/2019 12:00:00 AM EDT eCW1 ([facility]) Clonazepam 0.5 MG Oral Tablet 11/04/2019 12:00:00 AM EDT eCW1 ([facility]) Citalopram 20 MG Oral Tablet [Celexa] 11/04/2019 12:00:00 AM EDT eCW1 ([facility]) Risperidone 3 MG Oral Tablet [Risperdal] 07/07/2019 12:00:00 AM EDT eCW1 ([facility]) Risperidone 3 MG Oral Tablet [Risperdal] 07/07/2019 12:00:00 AM EDT eCW1 ([facility]) Risperidone 2 MG Oral Tablet [Risperdal] 07/07/2019 12:00:00 AM EDT eCW1 ([facility]) Risperidone 2 MG Oral Tablet [Risperdal] 07/07/2019 12:00:00 AM EDT eCW1 ([facility]) Risperidone 3 MG Oral Tablet [Risperdal] 07/07/2019 12:00:00 AM EDT eCW1 ([facility])
== END 2020-03-29 19:50 | disposition left against medical advice (07) ==
LOC: M ED 17:57
DX: Z53.21 Procedure and treatment not carried out due to patient leaving prior to being seen by health care provider (principal)

== ENCOUNTER 2020-03-30 12:35 | Emergency (ER) | payer OTHER ==
[~2020-03-30] VITALS: Ht 152.4 cm; Wt 83.2 kg
[~2020-03-30 12:35] MED LIST changes: +QUET50TA3 PO; -QUET5TAB PO
[2020-03-30] MEDS ORDERED: LORazepam 2 MG TAB PO STA (13:10)
[2020-03-30 13:55] VITALS: BP 159/99
== END 2020-03-30 13:57 | disposition home or self-care (01) ==
LOC: M ED 12:35
DX: F15.10 Other stimulant abuse, uncomplicated (principal); F25.9 Schizoaffective disorder, unspecified; Z86.19 Personal history of other infectious and parasitic diseases; G43.909 Migraine, unspecified, not intractable, without status migrainosus; F17.200 Nicotine dependence, unspecified, uncomplicated; Z79.899 Other long term (current) drug therapy; Z88.0 Allergy status to penicillin; Z88.6 Allergy status to analgesic agent; Z88.8 Allergy status to other drugs, medicaments and biological substances

== ENCOUNTER 2020-04-01 08:27 | Emergency (ER) | payer OTHER ==
[~2020-04-01] VITALS: Ht 165.1 cm; Wt 74.5 kg
[~2020-04-01 08:27] MED LIST changes: -QUET50TA3 PO; +QUET5TAB PO
[2020-04-01 10:06] LABS: BASO % 0.5 % (0.0-1.0); EOS # 0.1 10^3/uL (0.0-0.5); EOS % 0.7 % (0.0-3.0); HEMATOCRIT 41.1 % (36.0-47.0); HEMOGLOBIN 13.3 g/dl (12.0-15.5); LYMPH # 1.5 10^3/uL (1.5-5.0); LYMPH % 18.3 % (24.0-44.0); MEAN CORPUSCULAR HEMOGLOBIN 29.5 pg (27.0-33.0); MEAN CORPUSCULAR HGB CONC 32.4 g/dl (32.0-36.5); MEAN CORPUSCULAR VOLUME 91.1 fl (80.0-96.0); MONO # 0.5 10^3/uL (0.0-0.8); MONO % 6.4 % (0.0-5.0); NEUTROPHILS # 6.1 10^3/uL (1.5-8.5); NEUTROPHILS % 73.6 % (36.0-66.0); PLATELET COUNT, AUTOMATED 317 10^3/uL (150-450); RED BLOOD COUNT 4.51 10^6/uL (4.00-5.40); WHITE BLOOD COUNT 8.2 10^3/uL (4.0-10.0)
--- NOTE | 2020-04-01 10:07 | REP ---
INDICATION: severe headache, pulsating in head. COMPARISON: Comparison study December 02, 2019.. TECHNIQUE: Helical scanning is acquired. 5 mm axial images were reformatted. Coronal MPR images were generated. FINDINGS: Bone window settings demonstrate an intact bony calvarium. There is no evidence of skull fracture or incidental bony calvarial lesion. The visualized paranasal sinuses appear clear. No intraorbital abnormality is seen. On soft tissue window setting images; the lateral, third, and fourth ventricles are normal in size and position. Onofre-white differentiation pattern is normal above and below the tentorium. There are is no evidence of intracranial hemorrhage. No mass, edema, infarction, or midline shift is seen. No extra-axial fluid collection is appreciated. IMPRESSION: Negative noncontrast head CT. <Electronically signed by Praveen Her > 04/01/20 1009
[2020-04-01 10:38] LABS: ALBUMIN 4.3 GM/DL (3.2-5.2); ALT/SGPT 32 U/L (12-78); BILIRUBIN,DIRECT 0.2 MG/DL (0.0-0.2); BILIRUBIN,TOTAL 0.5 MG/DL (0.2-1.0); BLOOD UREA NITROGEN 11 MG/DL (7-18); CALCIUM LEVEL 9.3 MG/DL (8.5-10.1); CARBON DIOXIDE LEVEL 27 MEQ/L (21-32); CHLORIDE LEVEL 105 MEQ/L (98-107); CK-MB VALUE MASS 5.5 NG/ML (<3.6); CPK CREATINE PHOSPHOKINASE 396 U/L (26-192); CREATININE FOR GFR 0.72 MG/DL (0.55-1.30); GLOMERULAR FILTRATION RATE > 60.0 (>60); GLUCOSE, FASTING 83 MG/DL (70-100); LIPASE 61 U/L (73-393); MB/CK RELATIVE INDEX 1.39 (< OR =4); POTASSIUM SERUM 4.4 MEQ/L (3.5-5.1); SODIUM LEVEL 139 MEQ/L (136-145); TOTAL PROTEIN 7.9 GM/DL (6.4-8.2); TROPONIN I < 0.02 NG/ML (< 0.10)
[2020-04-01 11:53] LABS: AMPHETAMINES LEVEL URINE POSITIVE (NEGATIVE); BARBITURATES URINE NEGATIVE (NEGATIVE); BENZODIAZEPINES URINE POSITIVE (NEGATIVE); CANNABINOIDS URINE NEGATIVE (NEGATIVE); COCAINE METABOLITE URINE NEGATIVE (NEGATIVE); METHADONE URINE NEGATIVE (NEGATIVE); OPIATES URINE NEGATIVE (NEGATIVE); PHENCYCLIDINE URINE NEGATIVE (NEGATIVE)
[2020-04-01 12:18] VITALS: BP 139/72
--- NOTE | 2020-04-01 21:00 | ECGEPIP ---
[facility] - ED Test Date: 2020-04-01 Pat Name: MELANY LEE Department: Room: - Gender: Female Client Relation Specialist: yuki : 1985 Requested By: CRISTI Limon PA-C Order Number: [id number] Reading MD: Shirley Spears Measurements Intervals [place] Rate: 96 P: 59 WV: 154 QRS: 45 QRSD: 88 T: 35 QT: 357 QTc: 453 Interpretive Statements SINUS RHYTHM POSSIBLE LEFT ATRIAL ENLARGEMENT increased rate 03/12/20 Electronically Signed on 04-01-2020 21:00:14 EST by Shirley Spears
== END 2020-04-01 13:17 | disposition home or self-care (01) ==
LOC: M ED 08:27
DX: F19.10 Other psychoactive substance abuse, uncomplicated (principal); R20.8 Other disturbances of skin sensation; B19.9 Unspecified viral hepatitis without hepatic coma; F20.9 Schizophrenia, unspecified; Z88.0 Allergy status to penicillin; Z88.8 Allergy status to other drugs, medicaments and biological substances; Z88.6 Allergy status to analgesic agent

== ENCOUNTER 2020-04-09 01:16 | Observation (INO) | payer OTHER ==
[~2020-04-09] VITALS: Ht 152.4 cm; Wt 79.6 kg
[~2020-04-09 01:16] MED LIST changes: +QUET50TA3 PO; -QUET5TAB PO
--- OUTSIDE RECORDS SUMMARY | 2020-04-09 01:26 | CCD ---
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 12 Active confirmed 09614074 Problem Methamphetamine abuse F15.10 Active confirmed 765797504 Problem Opioid abuse F11.10 Active confirmed 2192087 Problem Opioid use disorder, severe, in sustained remission, on maintenance therapy F11.21 Active confirmed 313776738 Problem Cannabis abuse F12.10 Active confirmed 87826 009 Problem Gastroesophageal reflux disease, esophagitis pre sence not specified K21.9 Active confirmed 457527955 Problem BMI 30.0-30.9,adult Z68.30 Active confirmed 369179074 Problem Obesity (BMI 30.0-34.9) E66.9 Active confirmed 503722815748097 Problem Tongue sore K14.6 Active confirmed 30924893 Problem Binge eating disorder F50.81 Active confirmed 125729879 Problem Polysubstance abuse F19.10 Active confirmed 197116418 Problem Schizoaffective disorder F25.9 Active confirmed 52542643 Problem Tobacco dependence F17.200 Active confirmed 90940418 Problem Oropharyngeal dysphagia R13.12 Active confirmed 38640780 Problem Carpal tunnel syndrome, bilateral G56.03 Active confirmed 60092565980026881 Problem History of drug abuse F19.11 Active confirmed 318511219 ALLERGIES Allergen (clinical drug ingredient) Drug/Non Drug Allergy do cumented on EMR Reaction Allergy Type Onset Date Status haloperidol Haldol([facility] Code:[address]-40) Unknown Drug Allergy Active olanzapine Zyprexa([facility] Code:[address]-60) Unknown Drug Allergy Active amoxicillin Amoxicillin([facility] Code:[address]-86) Unknown Drug Aller gy Active penicillin G Penicillin G Sodium([facility] Code:[address]-93) Unknown D rug Allergy Active sulfamethoxazole / trimethoprim Bactrim([facility] Code:[address]-88) Unknown Drug Allergy Active Sulfacet-R Unknown Drug Allergy Active ENCOUNTERS from 1985 to 2020-04-05 Encounter Location Date Provider Diagnosis [address] [address] Mar, Shira Ford IMMUNIZATIONS No Information SOCIAL HISTORY [...] Notes Start Da te End Date Status Prilosec OTC 20 MG 1 tablet 30 minutes before m orning meal Orally Once a day for 90 day(s) Active Buprenorphine HCl 8 MG 2 strips under the tongue an d allow to dissolve Sublingual Once a day Active Clonidine HCl 0.2 MG 1 tablet Orally tid prn amxiety for 15 days Nov, Active Amitriptyline HCl 50 MG 1 tablet at bedtime Orally qhs for 30 days Active Risperdal 3 MG 1 tablet Orally twice a day for 15 days June, Active Sumatriptan Succinate 1 daily orally daily and PRN for Migraine. for 14 days Active Gabapentin 400 MG 1 capsule Orally three times a day for 30 days Active Keppra 1000 MG 1 tablet Orally Twice a day for 30 days Active Loratadine 10 MG 1 tablet Orally Once a day for 30 day(s) Active Diphenhydramine 1 tab Oral twice a day fro EPS Active Sucralfate 1 GM 1 tablet on an empty stomach Orally Twice a day for 30 day(s) Active Doxepin HCl 25 MG 1 capsule at bedtime Orally (pt is decreasing amitript to 50mg) Once a day for 15 days Feb, Act merari Celexa 20 MG 1 tablet Orally Once a day for 30 days Active PROCEDURES No Information RESULTS No Results REASON FOR VISIT Refill MEDICAL (GENERAL) HISTORY Type Description Date Medical History bilateral carpal tunnel Medical History Seizure Medical History GERD Surgical History hernia repair 2012 Hospitalization History drug overdose 2019 Goals Section No Information Health Concerns No Information MEDICAL EQUIPMENT No Information MENTAL STATUS No Information FUNCTIONAL STATUS No Information ASSESSMENTS No Information PLAN OF TREATMENT Medication Medication Name Sig Start Date Stop Date Clonidine HCl 0.2 MG 1 tablet Orally tid prn amxiety for 15 days Nov, Doxepin HCl 25 MG 1 capsule at bedtime Orally (pt is decreasing amitript to 50mg) Once a day for 15 days Feb, Keppra 1000 MG 1 tablet Orally Twice a day for 30 days Amitriptyline HCl 50 MG 1 tablet at bedtime Orally qhs for 30 da ys Sumatriptan Succinate 1 daily orally daily and PRN for Migraine. for 14 days Gabapentin 400 MG 1 capsule Orally three times a day for 30 days Loratadine 10 MG 1 tablet Orally Once a day for 30 day(s) Next Appt Details Provider Name:Aliyah Vazquez, 04-13 03:20:00 PM, [address] [place] [address], [phone], Provider Name:Jena Lawson, 2020-04-20 03:00:00 PM, [address] [place] [address], [phone], Insurance Providers Payer Name Payer Address Payer Phone Insured Name Patient Relati onship to Insured Coverage Start Date Coverage End Date [employer] [address] [place] [id number] Desire,Melissa self
--- OUTSIDE RECORDS SUMMARY | 2020-04-09 01:27 | CCD ---
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 12 Active confirmed 22549937 Problem Methamphetamine abuse F15.10 Active confirmed 349677016 Problem Opioid abuse F11.10 Active confirmed 0346231 Problem Opioid use disorder, severe, in sustained remission, on maintenance therapy F11.21 Active confirmed 103163172 Problem Cannabis abuse F12.10 Active confirmed 58646 009 Problem Gastroesophageal reflux disease, esophagitis pre sence not specified K21.9 Active confirmed 464270395 Problem BMI 30.0-30.9,adult Z68.30 Active confirmed 262567068 Problem Obesity (BMI 30.0-34.9) E66.9 Active confirmed 399239079055359 Problem Tongue sore K14.6 Active confirmed 62593424 Problem Binge eating disorder F50.81 Active confirmed 342561855 Problem Polysubstance abuse F19.10 Active confirmed 849760278 Problem Schizoaffective disorder F25.9 Active confirmed 27008618 Problem Tobacco dependence F17.200 Active confirmed 22842490 Problem Oropharyngeal dysphagia R13.12 Active confirmed 03926071 Problem Carpal tunnel syndrome, bilateral G56.03 Active confirmed [id number] Problem History of drug abuse F19.11 Active confirmed 725155236 ALLERGIES Allergen (clinical drug ingredient) Drug/Non Drug Allergy do cumented on EMR Reaction Allergy Type Onset Date Status haloperidol Haldol([facility] Code:[address]-71) Unknown Drug Allergy Active olanzapine Zyprexa([facility] Code:[address]-55) Unknown Drug Allergy Active amoxicillin Amoxicillin([facility] Code:[address]-94) Unknown Drug Aller gy Active penicillin G Penicillin G Sodium([facility] Code:[address]-94) Unknown D rug Allergy Active sulfamethoxazole / trimethoprim Bactrim([facility] Code:[address]-12) Unknown Drug Allergy Active Sulfacet-R Unknown Drug Allergy Active ENCOUNTERS from 1987 to 2020-04-02 Encounter Location Date Provider Diagnosis [address] [address] Mar, Shira Ford Mouth sores K13.79 ; Bruisin g T14.8XXA ; Schizoaffective disorder F25.9 and Clostridium difficile colitis A04.72 IMMUNIZATIONS No Information SOCIAL HISTORY Tobacco Use: Social History Observation Description Date Details (start date - stop date) Current Smoker Sex Assigned At : Social History Observation Description Sex Assigned At Unknown Tobacco Use/Smoking Question Answer Notes Are you a current smoker How many cigarettes a day do you smoke? REASON FOR REFERRAL No Information VITAL SIGNS Height 60.0 in Mar, Weight 183.0 lbs Mar, BMI 35.74 kg/m2 Mar, Heart Rate 119 /min Mar, Respiratory Rate 18 /min Mar, Oximetry 98 % Mar, Blood pressure systolic 118 mmHg Mar, Blood pressure diastolic 76 mmHg Mar, MEDICATIONS Medication SIG (Take, Route, Frequency, Duration) Notes Start Da te End Date Status Diphenhydramine 1 tab Oral twice a day fro EPS Active Buprenorphine HCl 8 MG 2 strips under the tongue an d allow to dissolve Sublingual Once a day Active Keppra 1000 MG 1 tablet Orally Twice a day for 30 days Active Clonidine HCl 0.2 MG 1 tablet Orally tid prn amxiety for 15 days Nov, Active Doxepin HCl 25 MG 1 capsule at bedtime Orally (pt is decreasing amitript to 50mg) Once a day for 15 day(s) Feb, A ctive Prilosec OTC 20 MG 1 tablet 30 minutes before m orning meal Orally Once a day for 90 day(s) Active Amitriptyline HCl 50 MG 1 tablet at bedtime Orally qhs Active Sumatriptan Succinate 1 daily orally daily and PRN for Migraine. for 14 days Not-Taking Gabapentin 400 MG 1 capsule Orally three times a day for 30 days Active Celexa 20 MG 1 tablet Orally Once a day for 30 days Active Sucralfate 1 GM 1 tablet on an empty stomach Orally Twice a day for 30 day(s) Active Risperdal 3 MG 1 tablet Orally twice a day for 15 days June, Active Loratadine 10 MG 1 tablet Orally Once a day for 30 day(s) Active PROCEDURES No Information RESULTS No Results REASON FOR VISIT follow up MEDICAL (GENERAL) HISTORY Type Description Date Medical History bilateral carpal tunnel Medical History Seizure Medical History GERD Surgical History hernia repair 2012 Hospitalization History drug overdose 2019 Goals Section No Information Health Concerns No Information MEDICAL EQUIPMENT No Information MENTAL STATUS No Information FUNCTIONAL STATUS No Information ASSESSMENTS Encounter Date Diagnosis Assessment Notes Treatment Notes Treatm ent Clinical Notes Mar, Mouth sores (ICD-10 - K13.79) Pt with complaints of sore in mouth. She also states that she feels that something on her tongue is moving. She states that she can see it but no one else can. Phsyical exam was unremarkable. Labs recently done ruled out autoimmune disorder. Referral placed to ENT. Mar, Bruising (ICD-10 - T14.8XXA) MOP complains of bruising to bilateral lower legs and requesting referral to hematology. Referral placed. Will continue to monitor. Mar, Schizoaffective disorder (ICD-10 - F25.9) Pt with history of schizophrenia and drug abuse and follows with [facility]. Pt comes in today with complaints of feeling and seeing something move on her tongue. She states that when she was in the ER a week ago at [facility] she was told there was nothing there. She was unable to sit still and was fidgeting while sitting. She kept bouncing from one topic to another while in the room today. Pt is visibly upset today in regards to what she is feeling. Pt was evaluated by Deborah Camarillo during this visit as pt was becoming more and more upset. Deborah had then asked the pt if she would be willing to do a urine drug screen. Pt become very upset and angry stating "I have a lump in my throat and it's not drugs." She then began to refuse a urine drug screen and became combative towards Deborah. She started screaming in the hallway at [facility] saying that she wanted an ultrasound of her throat, this was not discussed earlier during the visit. Deborah attempted to discuss calmly with the pt but she became more violent. Shira Rowley stepped in to de-escalate the situation so that Deborah may remove herself. Pt stated several times her symptoms are not related to her mental health or to drugs. She states that she has only used drugs three times since being discharged from the hospital. I then stepped away from the room while Shira Rowley was with the pt to discuss pt with Deborah and Ajay Chatman via telephone. Panda Chatman recommended we call the police as he was out of the office today. Deborah had then begun to call the police and I had returned to the pt's room. While waiting for the police to arrive the pt admitted to myself and Shira Maganae that she was buying Klonopin, Xanax, and methadone off the street. Once the police arrived she became upset and began to argue with them. She stated several times she was not going to go to [facility] as they will not help her with her problems. Pt was then eventually taken out of the office in handcuffs to be transported to [facility]. Mar, Clostridium difficile colitis (ICD-10 - A04.72) Pt states that she was in at [facility] ER a few days ago and was diagnosed with C diff. She states she is taking antibiotics but cannot tell me how long she has been on them or name of medication. Will continue to monitor and if no improvement after antibiotics then will consider repeating stool culture. Mar, Other All questions and concerns addressed, patient understanding and agreeable to plan. Patient encouraged to follow up at the clinic for any additional or new questions or concerns. Spent approx 50 minutes with the pt. Brianna Shay, scribing the following service on behalf of RASHID Bah on 03/30/2020. Patient here to see Avery Youngblood for scheduled visit. [facility], Deborah who was speaking with patient when patient became increasingly combative. This provider intervened in order to de-escalate situation and removed Deborah from interacting with patient. Spoke with patient for at least 30 mins until PD arrived. Patient has multiple complaints, is very agitated. Patient is unable to remain seated for more than seconds at a time, is often pacing the room. Is variably histrionic. Patient gets increasingly agitated and will yell but is redirectable. She is repetitive, unsteady on her feet, disheveled, intermittently crying. Patient reports: Yesterday she had recurrent tongue bleeding She has experienced multiple episodes of something in her tongue that she can see moving back and forth inside her tongue over the last 8 months Tongue will swell and turn purple That there are pockets in her cheeks with green pus living in them That there is something in her throat that causes intermittent mobile lumps Chronic runny nose with white sputum that does not improve with OTC antihistamines Unequal, cryptic appearance of tonsils (and has been dx with strep 3 times by ED but reports she has never had strep in her entire life) Fluid pocket in the back of her head Receding gums Left eye pain (but per patient has seen ophthalmology and her vision is 20/20) Chronic leg pain that is not controlled by her suboxone therapy Bruises on her legs that will not heal x 3 months Intermittent left arm pain Left low back pain, left flank pain Green urine On exam: No bleeding, lesions, cuts, or purple discoloration of tongue Normal tonsils Mild clear rhinorrhea (although patient is intermittently crying) No abnormalities of mucosa. No evidence of pockets, pus, lesions, abscess, ect Patient feels like no one is listening to her concerns and that she will before she is helped. She reports that she experiences these symptoms even when she is sober so she does not believe that they are related to drugs or mental health issues. She states that she has only done meth 3 times in the last month since her sister got out of rehab and they have both been doing very good. She admits to injecting meth in b/l arms. Patient will not show provider her arms. She is on suboxone therapy but states that her pain is uncontrolled and that she has been buying methadone, klonopin and xanax off the street to treat her pain and anxiety. 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 PLAN OF TREATMENT Treatment Notes Assessment Notes Clinical Notes Mouth sores Pt with complaints of sore i n mouth. She also states that she feels that something on her tongue is moving. She states that she can see it but no one else can. Phsyical exam was unremarkable. Labs recently done ruled out autoimmune disorder. Referral placed to ENT. Bruising MOP complains of bruising to bilateral lower legs and requesting referral to hematology. Referral placed. Will continue to monitor. Schizoaffective disorder Pt with history of schizophr enia and drug abuse and follows with [facility]. Pt comes in today with complaints of feeling and seeing something move on her tongue. She states that when she was in the ER a week ago at [facility] she was told there was nothing there. She was unable to sit still and was fidgeting while sitting. She kept bouncing from one topic to another while in the room today. Pt is visibly upset today in regards to what she is feeling. Pt was evaluated by Deborah Camarillo during this visit as pt was becoming more and more upset. Deborah had then asked the pt if she would be willing to do a urine drug s creen. Pt become very upset and angry stating "I have a lump in my throat and it's not drugs." She then began to refuse a urine drug screen and became combative towards Deborah. She started screaming in the hallway at [facility] saying that she wanted an ultrasound of her throat, this was not discussed earlier during the visit. Deborah attempted to discuss calmly with the pt but she became more violent. Shira Amrik stepped in to de-escalate the situation so that Deborah may remove herself. Pt stated several times her symptoms are not related to her mental health or to drugs. She states that she has only used drugs three times since being discharged from the hospital. I then stepped away from the room while Shira Rowley was with the pt to discuss pt with Deborah and Ajay Chatman via telephone. Gabino Chatman recommended we call the police as he was out of the office today. Deborah had then begun to call the police and I had returned to the pt's room. While waiting for the police to arrive the pt admitted to myself and Shira Rowley that she was buying Klonopin, Xanax, and methadone off the street. Once the police arrived she became upset and began to argue with them. She stated several times she was not going to go to [facility] as they will not help her with her problems. Pt was then eventually taken out of the office in handcuffs to be transported to [facility]. Clostridium difficile colitis Pt states that she was i n at [facility] ER a few days ago and was diagnosed with C diff. She states she is taking antibiotics but cannot tell me how long she has been on them or name of medication. Will continue to monitor and if no improvement after antibiotics then will consider repeating stool culture. Next Appt Details prn Reason: Insurance Providers Payer Name Payer Address Payer Phone Insured Name Patient Relati onship to Insured Coverage Start Date Coverage End Date [facility] [employer] [address] [facility] [id number] Come,Melissa self
--- OUTSIDE RECORDS SUMMARY | 2020-04-09 01:28 | CCD ---
Author Author [facility] Organization [facility] Address Unknown Phone Unavailable Care Team Providers Care Flatwork Supervisor Name Role Phone Kori FLORES Unavailable Unavailable [...] Jeremie HOGAN MD Unavailable Unavailable JESICA, @ [facility] Unavailable Unavailable BEHZAD HOGAN MD Unavailable Unavailable Ching, Reginah W Kassidy GRAPE PRUNER-C Unavailable Unavailabl e Ching, Reginah W Kassidy GRAPE PRUNER-C Unavailable Unavailabl e Ching, Reginah W Kassidy GRAPE PRUNER-C Unavailable Unavailabl e Ching, Reginah W Kassidy GRAPE PRUNER-C Unavailable Unavailabl e Ching, Reginah W Kassidy GRAPE PRUNER-C Unavailable Unavailabl e Ching, Reginah W Kassidy GRAPE PRUNER-C Unavailable Unavailabl e Ching, Reginalisa W Kassidy GRAPE PRUNER-C Unavailable Unavailabl e Ching, Reginah W Kassidy GRAPE PRUNER-C Unavailable Unavailabl e Ching, Reginah W Kassidy GRAPE PRUNER-C Unavailable Unavailabl e Ching, Reginah W Kassidy GRAPE PRUNER-C Unavailable Unavailabl e Ching, Reginah W Kassidy GRAPE PRUNER-C Unavailable Unavailabl e Ching, Reginah W Kassidy GRAPE PRUNER-C Unavailable Unavailabl e Ching, Reginah W Kassidy GRAPE PRUNER-C Unavailable Unavailabl e Ching, Reginah W Kassidy GRAPE PRUNER-C Unavailable Unavailabl e Ching, Reginah W Kassidy GRAPE PRUNER-C Unavailable Unavailabl e Ching, Reginah W Kassidy GRAPE PRUNER-C Unavailable Unavailabl e Ching, Elijah Yi GRAPE PRUNER-C Unavailable Unavailabl e Ching, Elijah Yi GRAPE PRUNER-C Unavailable Unavailabl e Ching, Elijah Yi GRAPE PRUNER-C Unavailable Unavailabl e Ching, Elijah Yi GRAPE PRUNER-C Unavailable Unavailabl e Ching, Elijah Yi GRAPE PRUNER-C Unavailable Unavailabl e Ching, Elijah Yi GRAPE PRUNER-C Unavailable Unavailabl e Ching, Elijah Yi GRAPE PRUNER-C Unavailable Unavailabl e Ching, Elijah Yi GRAPE PRUNER-C Unavailable Unavailabl e Ching, Elijah Yi GRAPE PRUNER-C Unavailable Unavailabl e Ching, Elijah Yi GRAPE PRUNER-C Unavailable Unavailabl e Ching, Elijah Yi GRAPE PRUNER-C Unavailable Unavailabl e Ching, Elijah Yi GRAPE PRUNER-C Unavailable Unavailabl e Ching, Elijah Yi GRAPE PRUNER-C Unavailable Unavailabl e Ching, Elijah Yi GRAPE PRUNER-C Unavailable Unavailabl e Ching, Elijah Yi GRAPE PRUNER-C Unavailable Unavailabl e Ching, Elijah Ballyce GRAPE PRUNER-C Unavailable Unavailabl e Lino Marie MD Unavailable [...] BROWN, L JANE Unavailable Unavailable DESJARLAIS, KAROLYN DEVOPS ARCHITECT Unavailable Unavailable DESJARLAIS, KAROLYN DEVOPS ARCHITECT Unavailable Unavailable DESJARLAIS, KAROLYN DEVOPS ARCHITECT Unavailable Unavailable DESJARLAIS, KAROLYN DEVOPS ARCHITECT Unavailable Unavailable DESJARLAIS, KAROLYN DEVOPS ARCHITECT Unavailable Unavailable DESJARLAIS, KAROLYN DEVOPS ARCHITECT Unavailable Unavailable DESJARLAIS, KAROLYN DEVOPS ARCHITECT Unavailable Unavailable DESJARLAIS, KAROLYN DEVOPS ARCHITECT Unavailable Unavailable DESJARLAIS, KAROLYN DEVOPS ARCHITECT Unavailable Unavailable MAHESH RECINOS Unavailable Unavailable Lester, Mavis GRAPE PRUNER GRAPE PRUNER Unavailable Unavailable Lester, A Mavis GRAPE PRUNER Unavailable Unavailable Lester, A Mavis GRAPE PRUNER Unavailable Unavailable Lester, A Mavis GRAPE PRUNER Unavailable Unavailable Lester, A Mavis GRAPE PRUNER Unavailable Unavailable Lester, A Mavis GRAPE PRUNER Unavailable Unavailable Lester, A Mavis GRAPE PRUNER Unavailable Unavailable Lester, A Mavis GRAPE PRUNER Unavailable Unavailable Lester, A Mavis GRAPE PRUNER Unavailable Unavailable Lester, A Mavis GRAPE PRUNER Unavailable Unavailable Lester, A Mavis GRAPE PRUNER Unavailable Unavailable Lester, A Mavis GRAPE PRUNER Unavailable Unavailable Lester, A Mavis GRAPE PRUNER Unavailable Unavailable Lester, A Mavis GRAPE PRUNER Unavailable Unavailable Lester, A Mavis GRAPE PRUNER Unavailable Unavailable Lester, A Mavis GRAPE PRUNER Unavailable Unavailable Lester, A Mavis GRAPE PRUNER Unavailable Unavailable Lester, A Mavis GRAPE PRUNER Unavailable Unavailable Lester, A Mavis GRAPE PRUNER Unavailable Unavailable Lester, A Mavis GRAPE PRUNER Unavailable Unavailable Lester, A Mavis GRAPE PRUNER Unavailable Unavailable Lester, A Mavis GRAPE PRUNER Unavailable Unavailable Lester, A Mavis GRAPE PRUNER Unavailable Unavailable Lester, A Mavis GRAPE PRUNER Unavailable Unavailable Lester, A Mavis GRAPE PRUNER Unavailable Unavailable Lester, A Mavis GRAPE PRUNER Unavailable Unavailable Lester, A Mavis GRAPE PRUNER Unavailable Unavailable Lester, A Mavis GRAPE PRUNER Unavailable Unavailable Lester, A Mavis GRAPE PRUNER Unavailable Unavailable BLUM, KATRIN Unavailable Unavailable Re-disclosure Warning The records that [...] is protected by Article 27-F of the [facility] Public Health law. If you continue you may have access to information: Regarding HIV / AIDS; Provided by facilities licensed or operated by the [facility] Office of Mental Health; or Provided by the [facility] Office for People With Developmental Disabilities. If such information is present, then the following [facility] mandated warning applies: This information has been [...] law may result in a fine or correction sentence or both. A general authorization for the release of medical or other information is NOT sufficient authorization for further disc losure. Allergies and Adverse Reactions Type Description Substance Reaction Status Data Source(s ) Drug allergy Drug allergy AMOXICLIIN SWELLING, HIVES SV R [facility] Drug allergy olanzapine olanzapine [facility] Drug allergy trimethoprim trimethoprim "BLISTERS IN MOUTH" [facility] Drug allergy sulfamethoxazole sulfamethoxazole "BLISTERS IN MOUTH" [facility] Drug allergy haloperidol haloperidol [facility] Drug allergy Sulfa (Sulfonamide Antibiotics) Sulfa (Sulfonami de Antibiotics) "BLISTERS IN MOUTH" [facility] Drug allergy Penicillins Penicillins SWELLING, HIVES SV R er [facility] Encounters Encounter Providers Location Date Indications Data Source(s ) Preadmit Attender: FAHAD MOONEY 04/15/2020 09:45:0 0 AM [facility] 04/05/2020 12:00:00 AM [place] [id number] ([facility]) Outpatient Attender: NATHAN PAUL PA-C 03/30/2020 10:30:00 AM [facility] Outpatient Attender: Shira Youngblood PA-C 03/30/2020 10:18 :00 AM [facility] 03/30/2020 12:00:00 AM [place] [address] ([facility]) Outpatient Attender: JANE EDWARD 03/23/2020 02:00:00 PM [facility] Outpatient Attender: JANE EDWARD 03/17/2020 10:30:00 AM [facility] Outpatient Attender: JANE EDWARD 03/11/2020 04:00:00 PM [facility] Preadmit Attender: FAHAD MOONEY 03/11/2020 06:30:0 0 AM [facility] Outpatient Attender: KAROLYN VAN NP 03/09/2020 03: 40:00 PM [facility] 03/03/2020 12:00:00 AM [facility] ([facility]) Outpatient Attender: Shira Becerraferrer: Shira Youngblood PA-C EMERGENCY ROOM-LAB 03/01/2020 04:49:00 PM [facility] - 03/01/2020 04:49:00 PM [facility] Outpatient Attender: Shira Youngblood PA-C 03/01/2020 03:45 :00 PM [facility] Outpatient [facility] 03/01/2020 12:00:00 AM EST eCW1 ([facility]) Outpatient [facility] 03/01/2020 12:00:00 AM EST eCW1 ([facility]) Outpatient Attender: KAROLYN VAN NP 02/18/2020 02: 40:00 PM [facility] Outpatient Attender: Kassidy SERRANO 02/18/2020 10:00:0 0 AM EST [facility] Outpatient [facility] 02/18/2020 12:00:00 AM EST eCW1 ([facility]) Outpatient [facility] 02/10/2020 12:00:00 AM EST eCW1 ([facility]) Outpatient [facility] 02/03/2020 12:00:00 AM EST eCW1 ([facility]) Outpatient [facility] 01/14/2020 12:00:00 AM EST eCW1 ([facility]) Outpatient [facility] 01/06/2020 12:00:00 AM EST eCW1 ([facility]) Outpatient Attender: JOHNATHON PATEL 01/02/2020 10:06:00 A [facility] Outpatient [facility] 01/02/2020 12:00:00 AM EST eCW1 ([facility]) Outpatient Attender: JANE EDWARD 01/01/2020 02:30:00 PM [facility] Outpatient Attender: KAROLYN VAN NP 12/24/2019 11: 00:00 AM [facility] Outpatient Attender: Shira Youngblood PA-C 12/24/2019 08:24 :00 AM [facility] Outpatient [facility] 12/24/2019 12:00:00 AM EDT eCW1 ([facility]) Outpatient Attender: JANE EDWARD 12/23/2019 01:54:00 PM E [facility] Outpatient [facility] 12/23/2019 12:00:00 AM EDT eCW1 ([facility]) Outpatient Attender: Mavis PATEL 12/12/2019 11:3 5:02 AM [facility] Outpatient Attender: JANE EDWARD 12/11/2019 03:00:00 PM E DT [facility] Outpatient [facility] 12/09/2019 12:00:00 AM EDT eCW1 ([facility]) Outpatient Attender: Mavis PATEL 12/05/2019 01:2 6:01 PM EDT [facility] Inpatient Attender: PRERNA RISO MDAdmitter: PRERNA Hopson MD ER-3RD 12/05/2019 10:08:00 AM EDT - 12/10/2019 01:07:00 PM EDT [facility] Patient discharged. Outpatient Attender: NATHAN PAUL PA-C 12/05/2019 09:03:00 AM EDT [facility] Admission cancelled. Disregard status an d admitted date. Inpatient Attender: BEHZAD HOGAN MD Attender: BEHZAD HOGAN MDAttender: DIOGENES BUENO MDAttender: DIOGENES BUENO MDAdmitter: BEHZAD HOGAN MD ER-ICU 12/04/2019 11:06:00 PM EDT - 12/05/2019 10:03:00 AM EDT [facility] Patient discharged. Emergency Attender: GINGER Salaser: Melissa Youngblood PA-C EMERGENCY ROOM-ER 12/04/2019 04:21:00 PM EDT - 12/04/2019 08:40:00 PM EDT [facility] Patient discharged. Outpatient Attender: KAROLYN VAN NP 12/04/2019 03: 11:00 PM EDT [facility] Outpatient Attender: Mavis PATEL 11/29/2019 07:0 4:03 PM EDT [facility] Outpatient Attender: JOHNATHON PATEL 11/29/2019 07:04:01 P M EDT [facility] Outpatient Attender: Mavis PATEL 11/24/2019 12:2 9:00 PM EDT [facility] Emergency Attender: EVONNE Garzasuant: STAFF NON 11/07/2019 12:19:00 AM EDT - 11/07/2019 04:20:00 AM EDT [facility] Patient discharged. Outpatient [facility] 11/07/2019 12:00:00 AM EDT eCW1 ([facility]) Outpatient Attender: Mavis DIEGO FP 11/04/2019 02:2 6:02 PM EDT [facility] Outpatient Attender: KAROLYN VAN NP 11/04[facility]2019 [facility]: Mavis DIEGO FP 11/02/2019 01:2 6:00 PM EDT [facility] Outpatient Attender: Mavis DIEGO FP 10/31/2019 06:0 2:00 PM EDT [facility] Outpatient Attender: JOHNATHON DIEGO FP 10/31/2019 06:01:59 P M EDT [facility] Outpatient Attender: Mavis DIEGO FP 10/31/2019 06:0 1:03 PM EDT [facility] Outpatient Attender: JOHNATHON DIEGO FP 10/31/2019 06:01:01 P M EDT [facility] Outpatient Attender: Shira Youngblood PA-C 10/31/2019 09:06 :00 AM [facility] Outpatient [facility] 10/31/2019 12:00:00 AM EDT eCW1 ([facility]) Outpatient Attender: JANE EDWARD 10/27/2019 11:00:00 AM E [facility] Outpatient Attender: KAROLYN VAN NP 10/21/2019 03: 20:00 PM [facility] Emergency Attender: EVONNE HAGENConsultant: STAFF NON 10/09/2019 02:09:00 AM EDT - 10/09/2019 03:44:00 AM EDT [facility] Patient discharged. Outpatient Attender: KATRIN BLUM 10/06/2019 09:37:00 AM ED [facility] Outpatient Attender: Mavis DIEGO FP 09/25/2019 04:0 9:01 PM EDT [facility] Outpatient Attender: Mavis DIEGO FP 09/25/2019 04:0 7:59 PM EDT [facility] Outpatient Attender: JOHNATHON DIEGO FP 09/23/2019 10:31:00 A M EDT [facility] Outpatient Attender: JOHNATHON PATEL 09/23/2019 10:30:01 A M EDT [facility] Outpatient Attender: JOHNATHON PATEL 09/23/2019 12:02:09 A M EDT [facility] Outpatient Attender: JOHNATHON TRUJILLOP FP 09/22/2019 05:44:02 P M EDT [facility] Outpatient Attender: Mavis TRUJILLOP FP 09/22/2019 05:4 2:59 PM EDT [facility] Outpatient Attender: JOHNATHON TRUJILLOP FP 09/22/2019 02:38:00 P M EDT [facility] Outpatient Attender: Mavis TRUJILLOP FP 09/22/2019 12:0 5:01 PM EDT [facility] Outpatient Attender: JOHNATHON TRUJILLOP FP 09/22/2019 07:56:01 A M EDT [facility] Outpatient Attender: Mavis DIEGO FP 09/16/2019 05:0 8:02 AM EDT [facility] Outpatient Attender: Mavis DIEGO FP 09/14/2019 05:1 9:00 PM EDT [facility] Outpatient Attender: JOHNATHON TRUJILLOP FP 09/14/2019 05:19:00 P M EDT [facility] Outpatient Attender: Mavis TRUJILLOP FP 09/12/2019 11:5 3:00 AM EDT [facility] Outpatient Attender: Mavis DIEGO FP 09/10/2019 11:0 6:01 PM EDT [facility] Outpatient Attender: JOHNATHON DIEGO FP 09/10/2019 11:06:01 P M EDT [facility] Outpatient Referrer: Femi Marie MD 08/15/2019 05:44:00 A M EDT [facility] Outpatient Attender: Mavis DIEGO FP 08/06/2019 09:5 2:01 AM EDT [facility] Outpatient Attender: JOHNATHON DIEGO FP 08/05/2019 07:41:16 P M EDT [facility] Outpatient Attender: Mavis DIEGO FP 08/05/2019 09:2 3:03 AM EDT [facility] Outpatient Attender: JOHNATHON DIEGO FP 08/05/2019 09:23:01 A M EDT [facility] Outpatient Attender: KATRIN BLUM 08/04/2019 09:42:00 AM ED [facility] Outpatient Attender: Mavis DIEGO FP 08/01/2019 10:3 1:00 AM EDT [facility] Outpatient Attender: Mavis DIEGO FP 08/01/2019 10:2 7:02 AM EDT [facility] Outpatient Attender: JOHNATHON DIEGO FP 07/30/2019 11:31:01 A M EDT [facility] Outpatient Attender: KATRIN BLUM 07/07/2019 03:30:00 PM ED [facility] Outpatient Attender: Mavis DIEGO FP 07/04/2019 10:3 3:02 AM EDT [facility] Outpatient Attender: Mavis DIEGO FP 07/03/2019 01:5 2:01 PM EDT [facility] Outpatient Attender: Mavis DIEGO FP 07/02/2019 10:2 8:02 AM EDT [facility] Outpatient Attender: Mavis DIEGO FP 07/01/2019 09:5 7:00 AM EDT [facility] Outpatient Attender: JOHNATHON DIEGO FP 07/01/2019 08:57:00 A M EDT [facility] Outpatient Referrer: Femi Marie MD 07/01/2019 04:55:00 A M EDT [facility] Outpatient Attender: JOHNATHON DIEGO FP 06/30/2019 04:21:00 P M EDT [facility] Outpatient Attender: Mavis DIEGO FP 06/22/2019 06:0 1:59 PM EDT [facility] Outpatient Attender: Mavis DIEGO FP 06/17/2019 03:3 2:01 PM EDT [facility] Outpatient Attender: JOHNATHON DIEGO FP 05/27/2019 12:22:00 P M EDT [facility] Outpatient Attender: Mavis DIEGO FP 05/24/2019 11:3 7:01 PM EDT [facility] Outpatient Attender: JOHNATHON DIEGO FP 05/20/2019 12:36:01 P M EDT [facility] Outpatient Attender: JOHNATHON DIEGO FP 05/20/2019 11:56:00 A M EDT [facility] Outpatient Attender: JOHNATHON DIEGO FP 05/20/2019 [facility]42:[facility]: JOHNATHON Batista JOHNATHON PATEL 05/01/2019 03:31:00 P [facility] Outpatient Attender: Mavis Batista JOHNATHON PATEL 04/28/2019 10:4 4:01 AM [facility] Outpatient Attender: KATRIN BLUM 04/21/2019 10:29:00 AM [facility] Outpatient Attender: JOHNATHON Batista JOHNATHON 04/15/2019 12:44:01 P [facility] Outpatient Attender: MAHESH RECINOS 02/24/2019 01:46:00 PM [facility] Outpatient Attender: JANE EDWARD 02/21/2019 10:00:00 AM [facility] Outpatient Attender: JOHNATHON Batista JOHNATHON 02/18/2019 09:01:04 P [facility] Outpatient Attender: MAHESH RECINOS 02/10/2019 02:18:00 PM [facility] Inpatient Attender: CHAO GUERRA MDAttdoug harjinder: PRERNA RIOS MDAdmitter: PRERNA RIOS MD ER-3RD 12/23/2018 04:01:00 PM EDT - 12/26/2018 01:22:00 PM T [facility] Patient discharged. Inpatient Attender: ONDINA RAMIREZ MDAdmitter: ONDINA RAMIREZ MD E R-ICU 12/19/2018 05:26:00 PM EDT - 12/23/2018 03:42:00 PM EDT [facility] Patient discharged. Emergency Attender: MATIAS MIKE EMERGENCY ROOM-ER 03:51:00 PM EDT - 12/19/2018 04:47:00 PM [facility] Patient discharged. Medications Medication Brand Name Start Date Product Form Dose Route Admi nistrative Instructions Pharmacy Instructions Status Indications Reaction Description Data Source(s) 8-2 mg 04/07/2020 12:00:00 AM EST film [address] TWO FILMS UNDER THE TONGUE EVERY DAY MAXIMUM DAILY DOSE = [address] TWO FILMS UNDER THE TONGUE EVERY DAY MAXIMUM DAILY DOSE = 2 FILMS SOLD: 04/07/2020 [facility] Doxepin Hydrochloride 25 MG Oral Capsule Doxepin HCl 25 MG D oxepin HCl 25 MG 03/09/2020 12:00:00 AM EST 1.0 {capsule_at_bedtime} active [facility] 25 MG Oral Capsule Doxepin HCl 25 MG D oxepin HCl 25 MG 03/09/2020 12:00:00 AM EST 1.0 {capsule_at_bedtime} active Doxepin HCl 25 MG eCW1 ([facility]) 8-2 mg 03/03/2020 12:00:00 AM EST film [...] activ e Clonidine HCl 0.2 MG eCW1 ([facility]) Clonidine Hydrochloride 0.2 MG Oral Tablet Clonidine H Cl 0.2 MG Clonidine HCl 0.2 MG 12/24/2019 12:00:00 AM EDT 1.0 {tablet} activ e Clonidine HCl 0.2 MG eCW1 ([facility]) Clonidine Hydrochloride 0.2 MG Oral Tablet Clonidine H Cl 0.2 MG Clonidine HCl 0.2 MG 12/24/2019 12:00:00 AM EDT 1.0 {tablet} activ e Clonidine HCl 0.2 MG eCW1 ([facility]) Clonidine Hydrochloride 0.2 MG Oral Tablet Clonidine H Cl 0.2 MG Clonidine HCl 0.2 MG 12/24/2019 12:00:00 AM EDT 1.0 {tablet} suspe nded Clonidine HCl 0.2 MG eCW1 ([facility]) Clonidine Hydrochloride 0.2 MG Oral Tablet Clonidine H Cl 0.2 MG Clonidine HCl 0.2 MG 12/24/2019 12:00:00 AM EDT 1.0 {tablet} activ e Clonidine HCl 0.2 MG eCW1 ([facility]) Clonidine Hydrochloride 0.2 MG Oral Tablet Clonidine H Cl 0.2 MG Clonidine HCl 0.2 MG 12/24/2019 12:00:00 AM EDT 1.0 {tablet} activ e Clonidine HCl 0.2 MG eCW1 ([facility]) Clonidine Hydrochloride 0.2 MG Oral Tablet Clonidine H Cl 0.2 MG Clonidine HCl 0.2 MG 12/24/2019 12:00:00 AM EDT 1.0 {tablet} activ e Clonidine HCl 0.2 MG eCW1 ([facility]) Clonidine Hydrochloride 0.2 MG Oral Tablet Clonidine H Cl 0.2 MG Clonidine HCl 0.2 MG 12/24/2019 12:00:00 AM EDT 1.0 {tablet} activ e Clonidine HCl 0.2 MG eCW1 ([facility]) Clonidine Hydrochloride 0.2 MG Oral Tablet Clonidine H Cl 0.2 MG Clonidine HCl 0.2 MG 12/24/2019 12:00:00 AM EDT 1.0 {tablet} activ e Clonidine HCl 0.2 MG eCW1 ([facility]) Clonidine Hydrochloride 0.2 MG Oral Tablet Clonidine H Cl 0.2 MG Clonidine HCl 0.2 MG 12/24/2019 12:00:00 AM EDT 1.0 {tablet} suspe nded Clonidine HCl 0.2 MG eCW1 ([facility]) Clonidine Hydrochloride 0.2 MG Oral Tablet Clonidine H Cl 0.2 MG Clonidine HCl 0.2 MG 12/24/2019 12:00:00 AM EDT 1.0 {tablet} suspe nded Clonidine HCl 0.2 MG eCW1 ([facility]) Clonidine Hydrochloride 0.2 MG Oral Tablet Clonidine H Cl 0.2 MG Clonidine HCl 0.2 MG 12/24/2019 12:00:00 AM EDT 1.0 {tablet} activ e Clonidine HCl 0.2 MG eCW1 ([facility]) Clonidine Hydrochloride 0.2 MG Oral Tablet Clonidine H Cl 0.2 MG Clonidine HCl 0.2 MG 12/24/2019 12:00:00 AM EDT 1.0 {tablet} activ e Clonidine HCl 0.2 MG [facility] 300 mg 12/13/2019 12:00:00 AM EDT [...] DAILY DOSE = 1 SOLD: 11/21/2019 Lakisha miles 21 mg/24 hr 11/18/2019 12:00:00 AM EDT [...] {tablet_at_bedtime} active Clonazepam 0 .5 MG eCW1 ([facility]) Clonazepam 0.5 MG Oral Tablet Clonazepam 0.5 MG 11/04/2019 12:00:00 AM EDT 1.0 {tablet_at_bedtime} active Clonazepam 0 .5 MG eCW1 ([facility]) lisdexamfetamine dimesylate 50 MG Oral Capsule [Vyvans e] Vyvanse 50 MG Vyvanse 50 MG 11/04/2019 12:00:00 AM EDT 1.0 {capsule_in_the_morning} active Vyvanse 50 MG eCW1 ([facility]) Citalopram 20 MG Oral Tablet [Celexa] Celexa 20 MG Celexa 20 MG 11/04/2019 12:00:00 AM EDT 1.0 {tablet} active Ce elise 20 MG eCW1 ([facility]) Citalopram 20 MG Oral Tablet [Celexa] Celexa 20 MG Celexa 20 MG 11/04/2019 12:00:00 AM EDT 1.0 {tablet} active Ce elise 20 MG eCW1 ([facility]) lisdexamfetamine dimesylate 50 MG Oral Capsule [Vyvans e] Vyvanse 50 MG Vyvanse 50 MG 11/04/2019 12:00:00 AM EDT 1.0 {capsule_in_the_morning} active Vyvanse 50 MG eCW1 ([facility]) Citalopram 20 MG Oral Tablet [Celexa] Celexa 20 MG Celexa 20 MG 11/04/2019 12:00:00 AM EDT 1.0 {tablet} active Ce elise 20 MG eCW1 ([facility]) 75 mg 11/02/2019 12:00:00 AM EDT tablet [...] DAY FOR A LLERGY SYMPTOMS SOLD: 10/31/2019 [facility] 50 mg 10/31/2019 12:00:00 AM [...] 1.0 {tablet} active Risperdal 3 MG eCW1 ([facility]) Risperidone 3 MG Oral Tablet [Risperdal] Risperdal 3 MG Risp erdal 3 MG 07/07/2019 12:00:00 AM EDT 1.0 {tablet} active Risperdal 3 MG eCW1 ([facility]) Risperidone 3 MG Oral Tablet [Risperdal] Risperdal 3 MG Risp erdal 3 MG 07/07/2019 12:00:00 AM EDT 1.0 {tablet} active Risperdal 3 MG eCW1 ([facility]) Risperidone 2 MG Oral Tablet [Risperdal] Risperdal 2 MG Risp erdal 2 MG 07/07/2019 12:00:00 AM EDT 1.0 {tablet} active Risperdal 2 MG eCW1 ([facility]) Risperidone 3 MG Oral Tablet [Risperdal] Risperdal 3 MG Risp erdal 3 MG 07/07/2019 12:00:00 AM EDT 1.0 {tablet} active Risperdal 3 MG eCW1 ([facility]) Risperidone 3 MG Oral Tablet [Risperdal] Risperdal 3 MG Risp erdal 3 MG 07/07/2019 12:00:00 AM EDT 1.0 {tablet} active Risperdal 3 MG eCW1 ([facility]) Risperidone 2 MG Oral Tablet [Risperdal] Risperdal 2 MG Risp erdal 2 MG 07/07/2019 12:00:00 AM EDT 1.0 {tablet} active Risperdal 2 MG eCW1 ([facility]) Risperidone 3 MG Oral Tablet [Risperdal] Risperdal 3 MG Risp erdal 3 MG 07/07/2019 12:00:00 AM EDT 1.0 {tablet} active Risperdal 3 MG eCW1 ([facility]) Risperidone 3 MG Oral Tablet [Risperdal] Risperdal 3 MG Risp erdal 3 MG 07/07/2019 12:00:00 AM EDT 1.0 {tablet} active Risperdal 3 MG eCW1 ([facility]) Risperidone 3 MG Oral Tablet [Risperdal] Risperdal 3 MG Risp erdal 3 MG 07/07/2019 12:00:00 AM EDT 1.0 {tablet} active Risperdal 3 MG eCW1 ([facility]) Risperidone 3 MG Oral Tablet [Risperdal] Risperdal 3 MG Risp erdal 3 MG 07/07/2019 12:00:00 AM EDT 1.0 {tablet} active Risperdal 3 MG eCW1 ([facility]) Risperidone 3 MG Oral Tablet [Risperdal] Risperdal 3 MG Risp erdal 3 MG 07/07/2019 12:00:00 AM EDT 1.0 {tablet} active Risperdal 3 MG eCW1 ([facility]) Risperidone 3 MG Oral Tablet [Risperdal] Risperdal 3 MG Risp erdal 3 MG 07/07/2019 12:00:00 AM EDT 1.0 {tablet} active Risperdal 3 MG eCW1 ([facility]) Risperidone 2 MG Oral Tablet [Risperdal] Risperdal 2 MG Risp erdal 2 MG 07/07/2019 12:00:00 AM EDT 1.0 {tablet} active Risperdal 2 MG eCW1 ([facility]) Risperidone 3 MG Oral Tablet [Risperdal] Risperdal 3 MG Risp erdal 3 MG 07/07/2019 12:00:00 AM EDT 1.0 {tablet} active Risperdal 3 MG eCW1 ([facility]) Risperidone 3 MG Oral Tablet [Risperdal] Risperdal 3 MG Risp erdal 3 MG 07/07/2019 12:00:00 AM EDT 1.0 {tablet} active Risperdal 3 MG eCW1 ([facility]) 8-2 mg 06/27/2019 12:00:00 AM EDT film [...] relationship to dick Policy Dick Plan Information [facility] COMMUNITY PLAN [facility] [id number] SP [id number] [facility] MEDICAID [id number] S [id number] [facility] [id number] S [id number] [facility] MEDICAID [id number] S [id number] [facility] MEDICAID [id number] S [id number] [facility](MCAID) O [id number] S [id number] Managed Care - [facility] Community Plan P [id number] S [id number] Medicaid S [id number] S [id number] [facility] [id number] SP [id number] [facility] OZZIE [id number] S [id number] UN COMMUNITY PLAN MCDO [id number] SP [id number] UN COMMUNITY PLAN XIX [id number] [phone] MEDICAID [id number] SP [id number] Managed Care - [facility] Community Plan P [id number] S [id number] MEDICAID [id number] S [id number] MEDICAID [id number] S [id number] MEDICAID PROF FEES [id number] S [id number] MEDICAID [id number] S [id number] [facility] [id number] S [id number] Medicaid S [id number] S [id number] Managed Care - Community Plan 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 P [id number] S [id number] Medicaid S UNAVAILABLE S UNAVAILA BLE Problems, Conditions, and Diagnoses Code Display Name Description Problem Type Effective Dates Data Source(s) F19.10 Polysubstance abuse Polysubstance abuse Problem 0 03/11/2020 12:00:00 AM EST eCW1 ([facility]) F19.11 [id number] History of drug abuse Problem 03/01/2020 12: 00:00 AM EST eCW1 ([facility]) K14.6 [id number] Tongue sore Problem 03/01/2020 12:00:[address] eCW1 ([facility]) F19.10 [id number] Substance abuse Problem 12/24/2019 12:00:00 AM EDT eCW1 ([facility]) F50.81 [id number] Binge eating disorder Problem 11/04/2019 12: 00:00 AM EDT eCW1 ([facility]) G56.03 [id number] Carpal tunnel syndrome, bilateral Pr oblem 10/31/2019 12:00:00 AM EDT eCW1 ([facility] jimena) R13.12 37855940 Oropharyngeal dysphagia Problem 10/31/2019 1 2:00:00 AM EDT eCW1 ([facility]) F17.200 31875490 Tobacco dependence Problem 10/31/2019 12:00: 00 AM EDT eCW1 ([facility]) E66.9 [id number] Obesity (BMI 30.0-34.9) Problem 0 10/31/2019 12:00:00 AM EDT eCW1 ([facility] jimena) Z68.30 [id number] BMI 30.0-30.9,adult Problem 10/31/2019 12:00 :00 AM EDT eCW1 ([facility]) K21.9 [id number] Gastroesophageal ref lux disease, esophagitis presence not specified Problem 10/31/2019 12:00:00 AM EDT eCW1 ([facility]) K92.0 Hematemesis Hematemesis - cause unknown 020 05:42:44 PM EDT [facility] I80.9 Phlebitis and thrombophlebitis of unspec ified site Phlebitis and thrombophlebitis of unspecified site 05/20/2019 12:34:09 PM EDT [facility] right AC and right tibia F90.0 Attention-deficit hyperactivity disorder , predominantly inattentive type ATTN-DEFCT HYPERACTIVITY DISORDER, PREDOM INATTENT Diagnosis 02:00:00 PM [facility] F11.21 Opioid dependence, in remission OPIOID DEPENDENC E, IN REMISSION Diagnosis 03/23/2020 02:00:00 PM [facility] F50.81 BINGE EATING DISORDER BINGE EATING DISORDER Diagnosis 03/23/2020 02:00:00 PM [facility] F43.12 Post-traumatic stress disorder, chronic POST-TRAUMATIC STRESS DISORDER, CHRONIC Diagnosis 03/23/2020 02:00:00 PM [facility] F25.9 Schizoaffective disorder, unspecified SC HIZOAFFECTIVE DISORDER, UNSPECIFIED Diagnosis 03/23/2020 02:00:00 PM [facility] l F19.10 Other psychoactive substance abuse, unco mplicated OTHER PSYCHOACTIVE SUBSTANCE ABUSE, UNCOMPLICATED Diagnosis 03/17/2020 10:30:00 AM [facility] Z13.29 Encounter for screening for other suspec keven endocrine disorder ENCOUNTER FOR SCREENING FOR OTH SUSPECTE Diagnosis 03/01/2020 04:49:00 PM [facility] Z82.61 Family history of arthritis FAMILY HISTORY OF ARTHRITI S Diagnosis 03/01/2020 03:45:00 PM [facility] Z13.220 Encounter for screening for lipoid disor ders ENCOUNTER FOR SCREENING FOR LIPOID DISORDERS Diagnosis 03/01/2020 03:45:00 PM [facility] Z82.69 Family history of other dise ases of the musculoskeletal system and connective tissue FAMILY HISTORY OF DISEASES OF THE MS SYS AND CONNE Diagnosis 03/01/2020 03:45:00 PM [facility] R50.9 Fever, unspecified FEVER, UNSPECIFIED Diagnosis 05/2020 03:45:00 PM [facility] 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, in r emission OTHER PSYCHOACTIVE SUBSTANCE ABUSE, IN REMISSION Diagnosis 03/01/2020 03:45:00 PM [facility] G56.03 CARPAL TUNNEL SYNDROME, BILATERAL UPPER LIMBS CARPAL TUNNEL SYNDROME, BILATERAL UPPER LIMBS Diagnosis 03/01/2020 03:45:00 PM [facility] K21.9 Gastro-esophageal reflux disease without esophagitis GASTRO-ESOPHAGEAL REFLUX DISEASE WITHOUT ESOPHAGITIS Diagnosis 02/18/2020 10:00:00 AM [facility] F15.10 Other stimulant abuse, uncomplicated OTH ER STIMULANT ABUSE, UNCOMPLICATED Diagnosis 01/01/2020 02:30:00 PM [facility] F12.10 Cannabis abuse, uncomplicated CANNABIS ABUSE, UNCOMPLI CATED Diagnosis 12/24/2019 11:00:00 AM [facility] F11.10 Opioid abuse, uncomplicated OPIOID ABUSE, UNCOMPLICATE D Diagnosis 12/24/2019 11:00:00 AM [facility] R13.12 Dysphagia, oropharyngeal phase DYSPHAGIA, OROPHARYNGEA L PHASE Diagnosis 12/24/2019 08:24:00 AM [facility] M54.2 Cervicalgia CERVICALGIA Diagnosis 12/24/2019 08:24:00 AM [facility] T50.914D POISONING BY MULTIPLE UNSP DRUG/MEDS/BIO L SUBST, U POISONING BY MULTIPLE UNSP DRUG/MEDS/BIOL SUBST, U Diagnosis 12/24/2019 08:24:00 AM [facility] F19.20 Other psychoactive substance dependence, uncomplicated OTHER PSYCHOACTIVE SUBSTANCE DEPENDENCE, UNCOMPLIC Diagnosis 12/05/2019 10:08:00 AM [facility] R45.851 Suicidal ideations SUICIDAL IDEATIONS Diagnosis 10/2019 10:08:00 AM [facility] G40.909 Epilepsy, unspecified, not intractable, without status epilepticus EPILEPSY, UNSP, NOT INTRACTABLE, WITHOUT STATUS EP Diagnosis 10/2019 10:08:00 AM [facility] F32.2 Major depressive disorder, s rito episode, severe without psychotic features MAJOR DEPRESSV DISORD, SINGLE EPSD, SEV Diagnosis 12/05/2019 10:08:00 AM [facility] F25.1 Schizoaffective disorder, depressive typ e SCHIZOAFFECTIVE DISORDER, DEPRESSIVE TYPE Diagnosis 12/05/2019 10:08:00 AM [facility] james Y92.[address] or not applicable UNSPECIFIED PLACE OR NOT APPLICABLE Diagnosis 12/04/2019 11:06:00 PM [facility] X58.XXXA Exposure to other specified factors, ini tial encounter EXPOSURE TO OTHER SPECIFIED FACTORS, INITIAL ENCOU Diagnosis 12/04/2019 11:06:00 P M [facility] T42.6X2A Poisoning by other antiepile ptic and sedative-hypnotic drugs, intentional self-harm, initial encounter POISN BY OTH ANTIEPLPTC AND SED-HYPNTC DRUGS, SLF- Diagnosis 12/04/2019 11:06:00 PM [facility] T40.902A Poisoning by unspecified psy chodysleptics [hallucinogens], intentional self-harm, initial encounter POISONING BY UNSP PSYCHODYSLEPTICS, SELF-HARM, INI Diagnosis 12/04/2019 11:06:00 PM [facility] K21.9 Gastro-esophageal reflux disease without esophagitis GASTRO-ESOPHAGEAL REFLUX DISEASE WITHOUT ESOPHAGIT Diagnosis 12/04/2019 11:06:00 PM [facility] F90.9 Attention-deficit hyperactivity disorder , unspecified type ATTENTION- DEFICIT HYPERACTIVITY DISORDER, UNSPECIF Diagnosis 12/04/2019 11:06:00 PM [facility] F43.10 Post-traumatic stress disorder, unspecif ied POST-TRAUMATIC STRESS DISORDER, UNSPECIFIED Diagnosis 12/04/2019 11:06:00 PM [facility] F43.23 Adjustment disorder with mixed anxiety a nd depressed mood ADJUSTMENT DISORDER WITH MIXED ANXIETY AND DEPRESS Diagnosis 12/04/2019 11:06:00 PM [facility] T42.4X2A Poisoning by benzodiazepines, intentiona l self-harm, initial encounter POISONING BY BENZODIAZEPINES, INTENTIONAL SELF-HARM, INIT Diagnosis 12/04/2019 11:06:00 [facility] Y93.89 Activity, other specified ACTIVITY, OTHER SPECIFIED Di agnosis 12/04/2019 04:21:00 PM [facility] Y92.[address] the place of o ccurrence of the external cause OT PLACES THE PLACE OF OCCURRENCE OF THE EXTER Diagnosis 09/2019 04:21:00 [facility] Z79.899 Other rat exterminator (current) drug therapy O THER USP (CURRENT) DRUG THERAPY Diagnosis 12/04/2019 04:21:00 PM [facility] Z20.828 Contact with and (suspected) exposure to other viral communicable diseases CONTACT W AND EXPOSURE TO OTH VIRAL COMMUNICABLE D Diagnosis 12/04/2019 04:21:00 PM [facility] F17.210 Nicotine dependence, cigarettes, uncompl icated NICOTINE DEPENDENCE, CIGARETTES, UNCOMPLICATED Diagnosis 12/04/2019 04:21:00 PM [facility] T50.992A Poisoning by other drugs, me dicaments and biological substances, intentional self-harm, initial encounter POISONING BY OTH DRUG/MEDS/BIOL SUBST, SELF-HARM, Diagnosis 12/04/2019 04:21:00 PM [facility] R45.851 Suicidal ideations SUICIDAL IDEATIONS Diagnosis 09/2019 04:21:00 PM [facility] V00078 Nicotine dependence, cigarettes, uncompl icated Nicotine dependence, cigarettes, uncomplicated Diagnosis 11/07/2019 12:19:00 AM [facility] F1510 Other stimulant abuse, uncomplicated Other stimu lant abuse, uncomplicated Diagnosis 11/07/2019 12:19:00 AM [facility] S28872 Other psychoactive substance abuse with psychoactive substance-induced anxiety disorder Other psychoactive substance abuse with psychoactive substance- induced anxiety disorder Diagnosis 11/07/2019 12:19:00 AM [facility] R110 Nausea Nausea Diagnosis 11/07/2019 12:19:00 AM [facility] Z76.89 Persons encountering health services in other specified circumstances PERSONS ENCOUNTERING HEALTH SERVICES IN OTH CIRCUM Diagnosis 05/2019 09:06:00 AM [facility] Z71.9 Counseling, unspecified COUNSELING, UNSPECIFIED Diagno sis 10/31/2019 09:06:00 AM [facility] Z68.30 Body mass index (BMI) 30.0-30.9, adult B BOB MASS INDEX (BMI) 30.0-30.9, ADULT Diagnosis 10/31/2019 09:06:00 AM [facility] E66.9 Obesity, unspecified OBESITY, UNSPECIFIED Diagnosis 10/31/2019 09:06:00 AM [facility] R56.9 Unspecified convulsions UNSPECIFIED CONVULSIONS Diagno sis 10/31/2019 09:06:00 AM [facility] F909 Attention-deficit hyperactivity disorder , unspecified type Attention- deficit hyperactivity disorder, unspecified type Diagnosis 10/08 02:09:00 AM [facility] J029 Acute pharyngitis, unspecified Acute pharyngitis, unsp ecified Diagnosis 10/09/2019 02:09:00 AM [facility] F15.11 OTHER STIMULANT ABUSE, IN REMISSION OTHER STIMUL ANT ABUSE, IN REMISSION Diagnosis 02/24/2019 01:46:00 PM [facility] Z72.0 Tobacco use TOBACCO USE Diagnosis 02/21/2019 10:00:00 AM [facility] F12.11 CANNABIS ABUSE, IN REMISSION CANNABIS ABUSE, IN REMISS ION Diagnosis 02/10/2019 02:18:00 PM [facility] Surgeries/Procedures Procedure Description Date Indications Data Source(s) Psychological Tests, Neurobehavioral and Cognitive Status 12/06/2019 12:00:00 AM [facility] Introduction of Electrolytic and Water B alance Substance into Peripheral Vein, Percutaneous Approach 12/04/2019 12:00:00 AM [facility] Results ID Date Data Source [id number] 03/04/2020 12:09:00 PM EST [facility] Name Value Range Interpretation Code Description Data [place] rce(s) Supporting Document(s) FAZAL DIRECT Negative Negative [facility] Performed at: RN - [facility] [place] [id number] Director: Elsa Garcia MD, Phone: [phone] ID Date Data Source [id number] 03/04/2020 12:05:00 PM EST [facility] Name Value Range Interpretation Code Description Data [place] rce(s) Supporting Document(s) FAZAL Direct Negative Negative [facility] ID Date Data Source [id number] 03/03/2020 08:50:00 AM EST [facility] ADD ON TEST Name Value Range Interpretation Code Description Data [place] rce(s) Supporting Document(s) RHEUMATOID FACTOR SCREEN NEGATIVE NEGATIVE [facility] ID Date Data Source [id number] 03/03/2020 08:37:00 AM EST [facility] ADD ON TEST Name Value Range Interpretation Code Description Data [place] rce(s) Supporting Document(s) FREE T4 1.0 ng/dL 0.76-1.46 [facility] ID Date Data Source [id number] 03/03/2020 08:37:00 AM EST [facility] ADD ON TEST Name Value Range Interpretation Code Description Data [place] rce(s) Supporting Document(s) TSH 0.422 uIU/mL 0.36-3.74 [facility] ID Date Data Source [id number] 03/03/2020 08:11:00 AM EST [facility] ADD ON TEST Name Value Range Interpretation Code Description Data [place] rce(s) Supporting Document(s) C REACTIVE PROTEIN 15.6 mg/L 0.0-3.0 H [facility]ames ID Date Data Source [id number] 03/03/2020 08:11:00 AM [facility] ADD ON TEST Name Value Range Interpretation Code Description Data [place] rce(s) Supporting Document(s) GLUCOSE 85 mg/dL 74-106 [facility] BLOOD UREA NITROGEN 11 mg/dL 7-18 [facility] ital CREATININE 0.88 mg/dL 0.6-1.0 [facility] SODIUM 135 mmol/L 136-145 L [facility] POTASSIUM 4.1 mmol/L 3.5-5.1 [facility] CHLORIDE 99 mmol/L 98-107 [facility] CO2 26 mmol/L 21-32 [facility] CALCIUM 8.8 mg/dL 8.5-10.1 [facility] ANION GAP 10.0 mmol/L 5-12 [facility] GLOMERULAR FILTRATION RATE 74 mL/min [facility] GFR IS CALCULATED IN mL/min/1.73m2 LISANDRA L FUNCTION: >90MILDLY DECREASED: 60-89MILDY TO MODERATELY DECREASED: 45-59 MODERATELY TO SEVERELY DECREASED: 30-44SEVERELY DECREASED: 15-29RENAL FAILURE: <15 AST 32 U/L 15-37 [facility] ALT 32 U/L 12-78 [facility] ALKALINE PHOSPHATASE 65 U/L 46-116 [facility] pital TOTAL BILIRUBIN 0.2 mg/dL 0.2-1.0 [facility] TOTAL PROTEIN 6.9 g/dl 6.4-8.2 [facility] ALBUMIN 3.9 gm/dL 3.4-5.0 [facility] ID Date Data Source [id number] 03/01/2020 05:46:00 PM [facility] Name Value Range Interpretation Code Description Data [place] rce(s) Supporting Document(s) CHOLESTEROL 193 mg/dL 0-200 [facility] TRIGLYCERIDES 86 mg/dL 0-150 [facility] LDL CHOLESTEROL 111 mg/dL 0-100 H [facility] HDL CHOLESTEROL 65 mg/dL 40-60 H [facility] CHOL/HDL RATIO 3.0 0.0-5.0 [facility] ID Date Data Source [id number] 02/29/2020 10:40:00 AM EST [facility] Name Value Range Interpretation Code Description Data [place] rce(s) Supporting Document(s) SARS coronavirus 2 RNA [facility] This lab was ordered by [facility] and reported by [facility]. ID Date Data Source [id number] 12/10/2019 11:15:00 AM EDT [address] [id number] NAME: BRUNA LEE Joe Orellana#: [id number] PHYSICIAN: PRERNA RIOS MD ADM. DATE: 12/05/19ACCOUNT #: [id number] DISCH. DATE:DISCHARGE SUMMARYIDENTIFICATION: A 34-year-old female with schizoaffective disorder,polysubstance dependence.CHIEF COMPLAINT: "I don't know why I am here."REASON FOR ADMISSION: Post- overdose.HISTORY OF PRESENT ILLNESS: The patient was interviewed in ICU after sheoverdosed. The patient was [facility] in [facility] for a regularconsultation, she could not [...] [place] last time in our service with [...] ABUSE: None.SOCIAL HISTORY: The patient is from [place], did not finish high school.She was in [...] The patient was discharged with the medications Trlkjb32 mg p.o. daily, Neurontin 600 mg p.o. [...] be enrolled in outpatient chemical dependence in [place].MENTAL STATUS EXAMINATION: The patient is pleasant, cooperative. [...] of substance.Date Dictated: 12/10/2019 09:34:34Date Transcribed: 12/10/2019 10:15:05JV/Karen #: [id number]: 12/10/19 0934 Electronically SignedTRANS:12/10/19 1115 PRERNA RIOS MDTRANS BY:ADE SIGNED:12/10/19REPORT COPY TO: Name Value Range Interpretation Code Description Data [place] rce(s) Supporting Document(s) ID Date Data Source [id number] 12/10/2019 06:43:00 AM [facility]T [facility] [address] [id number] NAME: BRUNA LEE Esteban#: [id number] PHYSICIAN: PRERNA RIOS, [facility]ITAL[facility] #: [id number] ADM. DATE: 12/05/19PATIENT : 89 DISCH. DATE: [50}DISCHARGE SUMMARYMHU discharge planNicotine Replacement TherapySmoking Status Current every day smokerPrescribed at discharge [facility]Drug DisorderAlcohol or Drug Disorder medication prescribed, counseling prescribedPersonal Care InstructionsDischarge Activity: As tolerated Discharge diet: RegularFollow Up CareFollow Up:Follow up with your Primary care physicianPriority ItemsUrgent/Important items that need to be addressed at primary care follow-upappointmentDischarge InformationDISCHARGE INFORMATION* [facility] and allowing us toserve you* Our Goal is to provide the highest quality of care.* This discharge information is to help you better understand your diagnosisand medication* Avoid taking ilwf-oid-fkpdnin medicines unless approved by your physician.* Take your medications as prescribed. DO NOT stop any medications unlessapproved first* Weigh yourself daily. Report any gain of 5 lbs in a week* 24 Hour Crisis HOTLINE available: Call [facility] at [phone]* Chem. Dependency: Walk in Clinics [place] ([phone]) and [place] ([phone]) anytime Sunday thru Sunday 8 to 10am. [place] ([phone]) anytimeMond thru Sunday 8 to 10am. [place] ([phone]) Sunday or Sunday from 8to 10am (Bring $30 to [facility]) SMOKIN G CESSATION* Smoking is dangerous to your health. It delays the healing process, andworks against your medications. Not smoking will improve your health* Our hospital participates with the Opt-to-Quit program. You will be contactedafter discharge by the [facility] Smoker's Quitline for support with tobaccocessation. You have the option once contacted to refuse this service.* You can also go online to www.[employer]. Free nicotine replacementsare available Attention* You should [...] rce(s) Supporting Document(s) ID Date Data Source [id number] 12/10/2019 02:15:00 AM EDT [facility] [address] [address]NKWKYHX NAME: BRUNA LEE#: [id number] PHYSICIAN: PRERNA RIOS MD ADM. DATE: 12/05/19PROGRESS NOTE DATE: 12/09/19 RM.#: [id number] #: [id number] NOTEIDENTIFICATION: A 34-year-old female with mood disorder [...] Dictated: 12/09/2019 10:52:52Date Transcribed: 12/10/2019 01:15:28JV/RAVJob #: [id number]: 12/09/19 1052 Electronically SignedTRANS:12/10/19 0215 PRERNA RIOS MDTRANS BY:[email or web address] SIGNED:12/10/19REPORT COPY TO: Name Value Range Interpretation Code Description Data [place] rce(s) Supporting Document(s) ID Date Data Source [id number] 12/08/2019 11:58:00 AM EDT [facility] Name Value Range Interpretation Code Description Data [place] rce(s) Supporting Document(s) URINE COLOR Yellow [facility] UAPR Clear [facility] UGLU Negative NEGATIVE N [facility] URINE BILIRUBIN Negative NEGATIVE N [facility] UKET Negative NEGATIVE N [facility] USG 1.015 1.010-1.025 [facility] UBLO Negative NEGATIVE [facility] UpH 8.0 5.0-8.0 [facility] UPRO Negative Negative [facility] UUB 0.2 mg/dL 0.2-1.0 [facility] UNIT Negative Negative [facility] ULEU Negative Negative [facility] ID Date Data Source [id number] 12/09/2019 04:57:00 AM EDT [address] [id number] NAME: BRUNA LEE#: [id number] PHYSICIAN: PRERNA RIOS MD ADM. DATE: 12/05/19PROGRESS NOTE DATE: 12/08/19 .#: [id number] #: [id number] NOTEIDENTIFICATION: A 34-year-old female with mood disorder, [...] Dictated: 12/08/2019 10:30:51Date Transcribed: 12/09/2019 03:57:49JV/Basia #: [id number]: 12/08/19 1030 Electronically SignedTRANS:12/09/19 0457 PRERNA RIOS MDTRANS BY:ADE SIGNED:12/09/19REPORT COPY TO: Name Value Range Interpretation Code Description Data [place] rce(s) Supporting Document(s) ID Date Data Source [id number] 12/06/2019 11:02:00 PM EDT [place], [place] [address]PATIENT NAME: BRUNA LEE Joe Orellana#: [id number] PHYSICIAN: PRERNA RIOS MD ADM. DATE: 12/05/19ACCOUNT #: [id number] .#: [id number] ASSESSMENTIDENTIFICATION: A 34-year-old female with schizoaffective disorder andpolysubstance dependence.CHIEF COMPLAINT: "I don't know why I am here."REASON FOR ADMISSION: Post-overdose.HISTORY OF PRESENT ILLNESS: According to the records and our interview, thepatient was brought to our service after being in ICU and the medical floorfor an overdose. The patient went to the outpatient clinic in [facility] and she passed out in consultation. She [...] 2 weeks ago, that she was in [place] inpatient service for 5 days forthat.The patient [...] into detail.SOCIAL HISTORY: The patient is from [place]. Did not finish high school.She is in [...] Dictated: 12/06/2019 12:22:47Date Transcribed: 12/06/2019 22:02:14JV/GBJob #: [id number]: 12/06/19 1222 Electronically Signed TRANS:12/06/19 2302 PRERNA RIOS MDTRANS BY:IATDATE SIGNED:12/07/19REPORT COPY TO: Name Value Range Interpretation Code Description Data [place] rce(s) Supporting Document(s) ID Date Data Source [id number] 12/05/2019 02:12:00 AM EDT [facility] Name Value Range Interpretation Code Description Data [place] rce(s) Supporting Document(s) CKI 109 U/L 17-150 [facility] ID Date Data Source [id number] 12/05/2019 04:49:00 PM [facility]T [facility] [address] HEALTH HISTORY AND PHYSICALPATIENT NAME: BRUNA LEE MR#: [id number] PHYSICIAN: PRERNA RIOS MDAUTHOR: Diogenes Bueno MD [...] and [facility] [facility].Past Medical/Surgical HistoryPast Medical/Surgical HistoryMedical ProblemsAcute [...] psych serviceDATE SIGNED: 12/05/19 Electronically SignedTIME SIGNED: 1650 DIOGENES BUENO MD Name Value Range Interpretation Code Description Data [place] rce(s) Supporting Document(s) ID Date Data Source [id number] 12/05/2019 09:48:00 AM EDT [facility] [address] [id number] SUMMARYPATIENT NAME: BRUNA LEE MR#: [id number] PHYSICIAN: BEHZAD HOGAN MDAUTHOR: Diogenes Bueno MD DATE: 12/04/19 #: ICUDISCHARGE DATE: 12/05/19 : 87Summary of HospitalizationReason for AdmissionOverdose on xanax, gabapentin, bath saltsHospital Bhggid89 yo F who was admitted for an [...] and the [facility]Diagnoses (Current Visit)Problem List1. Drug overdose2. [...] taking the following medications:Gabapentin* (Neurontin*) 400 MG [id number] MILLIGRAM Orally DAILYContinue taking these medications:LEVETIRACETAM (LEVETIRACETA) 1,000 MG TABLET1,000 MILLIGRAM Orally TWICE DAILYQty = 60Amitriptyline HCl (Amitriptyline HCl) 100 MG [id number] MILLIGRAM Orally DAILYSUCRALFATE (Carafate*) 1 GM TABLET1 GM Orally TWICE DAILYcloniDINE* (CLONIDINE*) 0.1 MG TABLET0.1 MILLIGRAM Orally TWICE DAILYOmeprazole Magnesium (Prilosec Otc) 20 MG TABLET.DR20 MILLIGRAM Orally DAILYrispERIdone (RISPERDAL*) 0.5 MG TABLET2 MILLIGRAM Orally TWICE DAILYATOMOXETINE HCL (Strattera) 18 MG [id number] MILLIGRAM Orally DAILYBUPRENORPHINE HCL/NALOXONE HCL (Suboxone 8 MG-2 MG Sl Film) 1 EACH FILM1 MILLIGRAM SublinguallySUMATRIPTAN SUCCINATE (Imitrex*) 50 MG CFLCEX04 MILLIGRAM Orally DAILY NEEDED as needed for HeadacheOxcarbazepine (Trileptal) 150 MG [id number] MILLIGRAM Orally TWICE DAILYDischarge Activity: As tolerated, No liftingDischarge diet: RegularFollow-upFollow up with the mental health doctor [facility]Time spent by provider to complete discharge > 30 minutesDATE SIGNED: 12/05/19 Electronically SignedTIME SIGNED: 1912 DIOGENES BUENO MD Name Value Range Interpretation Code Description Data [place] rce(s) Supporting Document(s) ID Date Data Source [id number] 12/05/2019 09:46:00 AM EDT [address] [address]CQRLFUU NAME: BRUNA LEE#: [id number] PHYSICIAN: YI KLEIN #: [id number] ADM. DATE: 12/04/19PATIENT : 89 DISCH. DATE: [50}DISCHARGE SUMMARYMedical Discharge PlanNicotine Replacement TherapyPrescribed at discharge Rx not offered at DCReason not offered pt is going to [facility] Care InstructionsDischarge Activity: As tolerated, No liftingDischarge diet: RegularProblem ListMedical ProblemsAcute respiratory failure (Acute)Drug abuse (Chronic)Drug overdose (Acute)SchizophreniaSeizure disorder (Chronic, 12/20/18)Follow Up CareFollow Up:Follow up with the mental health doctor [facility]Priority ItemsUrgent/Important items that need to be addressed at primary care follow-upappointmentPLEASE AVOID GABAPENTIN/XANAX/BATH SALTS IN THE FUTUREDischarge InformationDISCHARGE INFORMATION* Thank you for [facility] and allowing us toserve you* Our [...] Hour Crisis HOTLINE available: Call [employer] at [phone] SMOKING CESSATION* Smoking is dangerous to your health. It delays the healing process, andworks against your medications. Not smoking will improve your health* Our hospital participates with the Opt-to-Quit program. You will be contactedafter discharge by the [facility] Smoker's Quitline for support with tobaccocessation. You have the option once contacted to refuse this service.* You can also go online to [email or web address]. Free nicotine replacementsare available Attent ion* You [...] rce(s) Supporting Document(s) ID Date Data Source [id number] 12/06/2019 02:37:00 AM EDT [place], [place] [address]PATIENT NAME: BRUNA LEE Joe Orellana#: [id number] PHYSICIAN: BEHZAD HOGAN MD ADM. DATE: 12/04/19CONSULTING PHYSICIAN: PRERNA RIOS MD .#: ICUACCOUNT #: [id number] REPORTIDENTIFICATION: A 34-year-old female with mood disorder. This is a shortconsultation for a 34-year-old female who was unresponsive. The patient is inICU and at this point it is not clear the reason for an overdose.According to the records, the patient has a history of seizures, GERD, carpaltunnel, adjustment disorder, anxiety, depression, PTSD, and ADHD. Accordingto the records, the patient went to [facility] for an evaluation. Shehad an overdose. Was unconscious and at that point, according to the records,she stated that she injected bath salts in the morning, that is when shebecame unconscious and it is not clear who [facility]. The patient has poor response to [...] the lastthing she remembers is being at [place] so she is oriented to person, not [...] Dictated: 12/05/2019 09:24:19Date Transcribed: 12/06/2019 01:37:33JV/GBJob #: [id number]: 12/05/19 0924 Electronically SignedTRANS:12/06/19 023Esdras RIOS MDTRANS BY:ADE SIGNED:12/09/19REPORT COPY TO: Name Value Range Interpretation Code Description Data [place] rce(s) Supporting Document(s) ID Date Data Source [id number] 12/05/2019 08:01:00 AM EDT [facility] Patient: BRUNA LEE Observation Repor t - Physicians/[facility] CampusVisitID: [id number] [place] [address] [phone], FRegistramiddletown emergency department Date/Time: 12/04/2019 15:46 Weight:68.4 kg (E). Height/Length:60 [...] 12/04/2019 20:43) Addenda for BRUNA LEE VisitID: [id number] Date: 12/04/2019 12/05/2019 7:59Spoke to [facility] nurse Deborah who wanted to come to [place] to see patient. Advised Deborah that the [facility]. (Electronically signed by Allyssa Paredes R.N. - 12/05/2019 7:59) Name Value Range Interpretation Code Description Data [facility](s) Supporting Document(s) ID Date Data Source [id number] 12/05/2019 07:34:00 AM [facility] Name Value Range Interpretation Code Description Data [facility](s) Supporting Document(s) GLU 76 mg/dL 70-110 [facility] Patients taking Sulfasalazine may have f alsely depressedGlucose levels. Patients taking Sulfapyridine may havefalsely elevated Glucose levels. Patients should be drawnfor Glucose before the initial administration of eitherdrug. BUN 7 mg/dL 7-23 [facility] CRE 0.500 mg/dL 0.500-1.300 [facility] GFR > 60 mL/min [facility] CHLORIDE 117 mmol/L 99-110 [facility] NA 146 mmol/L 136-147 [facility] POTASSIUM 3.5 mmol/L 3.5-5.1 [facility] TCO2 22 mmol/L 20-33 [facility] ANION GAP 10.5 10.0-20.0 [facility] CA 7.8 mg/dL 8.3-10.7 [facility] ALKALINE PHOS 59 U/L 45-117 [facility] TP 5.7 g/dL 6.0-7.8 [facility] ALB 2.6 g/dL 3.5-5.0 [facility] ESRD Dialysis patient Albumin reference range: 2.9-4.4 g/dL GL 3.1 g/dL 2.3-3.5 [facility] A/G 0.8 1.0-2.5 [facility] T.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 Document(s) ID Date Data Source [id number] 11/07/2019 12:19:00 AM EDT [facility] 1 Clinical Report - Physicians/Mid Levels [facility] Emergency Department [address] [place] [address] Phone #: ext- [phone] 11/07/2019 00:19 Patient: BRUNA LEE Sex: F [...] Meth in over 2 weeks; woke NETWORK CONTRACT MANAGER w face swelling and nausea, no other Sx, no withdrawal, ROS otw neg.; pt known at [facility] for multiple ER visits for different [...] Repair. 2 Clinical Report - Physicians/Mid Levels [facility] Emergency Department [address] [place] [address] Phone #: ext- [phone] 11/07/2019 00:19 Patient: BRUNA LEE Sex: F [...] saturation: 98%. Temp: 98.1 F.Pain level now: 10/10. Have been reviewed. Oxygen saturation normal.Appearance: Alert. [...] (Reference) 3 Clinical Report - Physicians/Mid Levels [facility] Emergency Department [address] [place] [address] Phone #: ext- [phone] 11/07/2019 00:19 Patient: [...] Male GFR Interprentation 20-49 yrs >60 mL/min Xprwcy03-28 yrs >56 mL/min Normal 60- 69 yrs >49 mL/min Normal 70-79yrs>42 mL/min Normal 80 and above >35 mL/min Normal Female GFRInterpretation 20-39 yrs >60 mL/min Normal 40-49 yrs >58 mL/minNormal 50-59 yrs >51 mL/min Normal 60-69 yrs >45 mL/min Normal 4 Clinical Report - Physicians/Mid Levels [facility] Emergency Department [address] [place] [address] Phone #: ext- [phone] 11/07/2019 00:19 Patient: BRUNA LEE Sex: F : 1985 Age: 22c53-51 yrs >39 mL/min Normal 80 and above >32 mL/min NormalBeta-HCG, Qual Serum: (JENN: 11/07/2019 02:15) ( [facility] Final results Test Result Flag Units (Reference) HCG SERUM QUAL NEGATIVE (NORMAL: NEGAT HCG SERUM QL REENTER NEGATIVE (NORMAL: NEGAT { KIT LOT # [id number] ){ KIT EXP [id number] ){ PROCEDURAL CONTROL VALID)CPK: (JENN: 11/07/2019 02:15) ( [facility] [place]07[facility] 03:15) Final results Test Result Flag Units (Reference) CPK 313 H U/L (30 - 170)Drug Screen-Urine: (JENN: 11/07/2019 02:00) ( [facility] [place] 11/07/[facility] 03:15) Final results Test Result Flag [...] CONFIRMATION WILL BE PERFORMED AT [facility].Urinalysis: (JENN: 11/07/2019 02:00) ( MsgRcvd 11/07/2019 02:28) [...] Indicate 5 Clinical Report - Physicians/Mid Levels [facility] Emergency Department [address] [place] [address] Phone #: ext- [phone] 11/07/2019 00:19 Patient: [...] accurately reflects the information as submitted by [email or web address]. This report was requested by: Evonne Hagen Reference #: [id number] Others' Prescriptions Patient Name: Bruna LeeBirth Date: 1985 Address: [address] [place] [id number]: Female Rx Written Rx Dispensed Drug Quantity Days Supply Prescriber Name Payment Method Dispenser 10/28/2019 10/28/2019 buprenorphine-naloxone 8-2 mg sl film 56 28 Jose J Mao MD Medicaid [facility] 09/30/2019 09/30/2019 buprenorphine-naloxone 8-2 mg sl film 56 28 MoehJose J hopson MD Medicaid [facility] 08/28/2019 08/28/2019 buprenorphine-naloxone 8-2 mg sl film 56 28 MoJose J hopson MD Medicaid [facility] 07/23/2019 07/29/2019 buprenorphine-naloxone 8-2 mg sl film 56 28 MoJose J dumont MD Medicaid [facility] 06/27/2019 06/27/2019 [...] table. 6 Clinical Report - Physicians/Mid Levels [facility] Emergency Department [address] [place] [address] Phone #: ext- [phone] 11/07/2019 00:19 Patient: [...] Oral. 7 Clinical Report - Physicians/Mid Levels [facility] Emergency Department [address] [place] [address] Phone #: ext- [phone] 11/07/2019 00:19 Patient: [...] rce(s) Supporting Document(s) ID Date Data Source [id number] 11/07/2019 03:20:00 AM EDT [facility] Name Value Range Interpretation Code Description Data [place] rce(s) Supporting Document(s) HCG SERUM QUAL NEGATIVE NORMAL: NEGATIVE [facility] HCG SERUM QL REENTER NEGATIVE NORMAL: NEGATIVE [facility] { KIT LOT # [id number] ){ KIT EXP DATE 12-08-20 ){ PROCEDURAL CONTROL VALID ) ID Date Data Source [id number] 11/07/2019 03:15:00 AM EDT [facility] Name Value Range Interpretation Code Description Data [place] rce(s) Supporting Document(s) Creatine kinase [Enzymatic activity/volume] in Serum or Plasma 3 13 U/L 30 - 170 H [facility] ID Date Data Source [id number] 11/07/2019 03:14:00 AM EDT [facility] Name Value Range Interpretation Code Description Data [place] rce(s) Supporting Document(s) COMPREHENSIVE METABOLIC PANEL [facility] COMPREHENSIVE METABOLIC PANEL Sodium [Moles/volume] in Serum or Plasma 140 mEq/L 134 - 153 [facility] Potassium [Moles/volume] in Serum or Plasma 3.8 mEq/L 3.6 - 5.0 [facility] Chloride [Moles/volume] in Serum or Plasma 100 mEq/L 98 - 107 [facility] Carbon dioxide, total [Moles/volume] in Serum or Plasma 30 MEQ/L 22 - 30 [facility] Glucose [Mass/volume] in Serum or Plasma 98 MG/DL 65 - 110 [facility] BUN 14 MG/DL 7 - 21 [facility] al Creatinine [Mass/volume] in Serum or Plasma 0.7 MG/DL 0.7 - 1.5 [facility] BUN/CREAT 20 8 - 27 [facility] Protein [Mass/volume] in Serum or Plasma 5.9 G/DL 6.3 - 8.2 L [facility] Albumin [Mass/volume] in Serum or Plasma 3.6 G/DL 3.9 - 5.0 L [facility] Globulin [Mass/volume] in Serum by calculation 2.3 GM/DL 2.4 - 3.2 L [facility] A/G RATIO 1.6 0.8 - 2.0 [facility] Calcium [Mass/volume] in Serum or Plasma 9.2 MG/DL 8.4 - 10.2 [facility] Bilirubin.total [Mass/volume] in Serum or Plasma <0.7 MG/DL 0.2 - 1.3 [facility] Alkaline phosphatase [Enzymatic activity/volume] in Serum or Plasma 62 U/L 38 - 126 [facility] Aspartate aminotransferase [Enzymatic activity/volume] in Serum or Plasma 302 U/L 5 - 40 H [facility] Alanine aminotransferase [Enzymatic activity/volume] in Seru m or Plasma 125 U/L 7 - 56 H [facility] Anion gap 3 in Serum or Plasma 10.0 mmol/L 8.0 - 16.0 [facility] AGE 34 yrs [facility] al NON-AA GFR >60 mL/min [facility] ital AFR AMER GFR >60 mL/min [facility] Ho spital Male GFR In terprentation [...] >32 mL/min Normal ID Date Data Source [id number] 11/07/2019 02:27:00 AM EDT [facility] Name Value Range Interpretation Code Description Data [place] rce(s) Supporting Document(s) CBC W/AUTOMATED DIFF [facility] COMPLETE BLOOD COUNT Leukocytes [#/volume] in Blood by Automated count 8.3 10^3/uL 4.2 - 1 1.0 [facility] Erythrocytes [#/volume] in Blood by Automated count 3.87 10^6/uL 4. 20 - 5.40 L [facility] Hemoglobin [Mass/volume] in Blood 11.6 g/dL 12.0 - 16.0 L [facility] Hematocrit [Volume Fraction] of Blood by Automated count 36.0 % 3 7.0 - 47.0 L [facility] Erythrocyte mean corpuscular volume [Entitic volume] by Auto mated count 93.0 fL 81.0 - 101 [facility] Erythrocyte mean corpuscular hemoglobin [Entitic mass] by Automated count 30.0 pg 27.0 - 34.0 [facility] Erythrocyte mean corpuscular hemoglobin concentration [Mass/volume] by Automated count 32.2 g/dL 31.0 - 36.0 [facility] Erythrocyte distribution width [Ratio] by Automated count 13.3 % 11.5 - 14.5 [facility] Platelets [#/volume] in Blood by Automated count 271 10^3/uL 150 - 45 0 [facility] Platelet mean volume [Entitic volume] in Blood by Automated count 9.5 fL 7.4 - 10.4 [facility] Neutrophils/100 leukocytes in Blood by Automated count 82.6 % 37. 0 - 80.0 H [facility] Lymphocytes/100 leukocytes in Blood by Manual count 14.3 % 25.0 - 40.0 L [facility] Monocytes/100 leukocytes in Blood by Automated count 1.6 % 3.0 - 8.0 L [facility] Eosinophils/100 leukocytes in Blood by Automated count 0.8 % 0.0 - 7.0 [facility] Basophils/100 leukocytes in Blood by Automated count 0.2 % 0.0 - 2.5 [facility] %IG 0.5 % 0.0 - 0.[address] %NRBC 0.0 % 0.0 - 0.0 [facility] al Neutrophils [#/volume] in Blood by Automated count 6.85 10^3/uL 2.00 - 6.90 [facility] Lymphocytes [#/volume] in Blood by Automated count 1.19 10^3/uL 0.60 - 3.40 [facility] Monocytes [#/volume] in Blood by Automated count 0.13 10^3/uL 0.00 - 0.90 [facility] Eosinophils [#/volume] in Blood by Automated count 0.07 10^3/uL 0.00 - 0.70 [facility] Basophils [#/volume] in Blood by Automated count 0.02 10^3/uL 0.00 - 0.20 [facility] #IG 0.04 10^3/uL 0.00 - 0.10 [facility] ospital #NRBC 0.00 10^3/uL 0.00 - 0.00 [facility] ospital MANUAL DIFF NOT INDICATED [facility] RBC MORPH NOT INDICATED [facility] Ho spital ID Date Data Source [id number] 11/07/2019 03:14:00 AM EDT [facility] Name Value Range Interpretation Code Description Data [place] rce(s) Supporting Document(s) DRUG SCREEN URINE [facility] URINE DRUG SCREEN Amphetamine [Presence] in Urine by Screen method PRESUMP POS LISANDRA L: NEGATIVE A [facility] BARBITURATES NEGATIVE NORMAL: NEGATIVE [facility] BENZO NEGATIVE NORMAL: NEGATIVE [facility] COCAINE NEGATIVE NORMAL: NEGATIVE [facility] Tetrahydrocannabinol [Presence] in Urine NEGATIVE NORMAL: NEGATIVE [facility] OPIATES NEGATIVE NORMAL: NEGATIVE [facility] Phencyclidine [Presence] in Urine by Screen method NEGATIVE NOR MAL: NEGATIVE [facility] \\BLDo\\URINE DRUG SCR EEN INTERPRETATION\\BLDx\\ THE CUTOFFF LEVELS FOR DETECTION ARE FOLLOWS: AMPHETAMINES 1000 ng/ml BARBITUARATES 200 ng/ml BENZODIAZEPINES 100 ng/ml THC 50 ng/ml PHENCYCLIDINE 25 ng/ml OPIATES 300 ng/ml COCAINE 300 ng/ml ALL POSITIVES ARE CONSIDERED PRESUMPTIVE POSITIVE CONFIRMATION WILL BE PERFORMED AT PHYSICIAN REQUEST. ID Date Data Source [id number] 11/07/2019 02:27:00 AM EDT [facility] Name Value Range Interpretation Code Description Data [place] rce(s) Supporting Document(s) [facility] SOURCE R [facility] al COLOR yellow NORMAL: Yellow [facility] ospital CLARITY clear NORMAL: Clear [facility] sp[facility] Specific gravity of Urine by Test strip 1.020 1.001 - 1.030 [facility] pH 6 5 - 9 [facility] al Glucose [Mass/volume] in Urine by Test strip NORM NORMAL: Negat [facility] Bilirubin.total [Presence] in Urine by Test strip NEG NORMAL: Negative [facility] Ketones [Presence] in Urine by Test strip NEG NORMAL: Negative [facility] Protein [Mass/volume] in Urine by Test strip NEG NORMAL: Negat [facility] Nitrite [Presence] in Urine by Test strip NEG NORMAL: Negative [facility] BLOOD NEG NORMAL: Negative [facility] Leukocyte esterase [Presence] in Urine by Test strip NEG LISANDRA L: Negative [facility] Urobilinogen [Mass/volume] in Urine by Test strip 1 less kenna n 1.0 mg/dL [facility] MICROSCOPIC Not Indicate [facility] ID Date Data Source [id number] 10/30/2019 10:27:00 AM EDT [facility] Name Value Range Interpretation Code Description Data [place] rce(s) Supporting Document(s) BG FASTING 132 mg/dL 70-100 H [facility] TSH 0.526 microintl units/mL 0.358-3.[address] [facility] ID Date Data Source [id number] 10/30/2019 10:27:00 AM EDT [facility] Name Value Range Interpretation Code Description Data [place] rce(s) Supporting Document(s) HCT 37.6 % 36.0-47.0 N [facility] HGB 11.8 g/dL 12.0-15.5 L [facility] MCH 31.4 G/DL pg 32.0-36.5 [facility] MCHC 29.9 PG % 27.0-33.0 N [facility] PLATELETS 209 10 10*3/mm3 150-450 N [facility] RBC 3.94 10 10*6/mm3 4.00-5.40 L [facility] RDW 12.6 % 11.5-14.5 N [facility] WBC TOTAL 4.5 4.0-10.0 N [facility] ID Date Data Source [id number] 10/13/2019 03:25:00 PM EDT [facility] Name Value Range Interpretation Code Description Data [place] rce(s) Supporting Document(s) HCT 40.7 % 36.0-47.0 N [facility] [facility] HGB 13.3 g/dL 12.0-15.5 [facility] MCH 32.7 G/DL pg 32.0-36.5 N [facility] MCHC 30.4 PG % 27.0-33.0 [facility] PLATELETS 288 10 10*3/mm3 150-450 N [facility] RBC 4.37 10 10*6/mm3 4.00-5.40 [facility] RDW 12.4 % 11.5-14.5 N [facility] WBC TOTAL 8.7 4.0-10.0 N [facility] ID Date Data Source [id number] 10/09/2019 02:09:00 AM EDT [facility] 1 OrderSheet [facility] Emergency Department [address] [place] [address] Phone #: ext- [phone] 10/09/2019 02:08 Patient: [...] Value Range Interpretation Code Description Data [facility](s) Supporting Document(s) ID Date Data Source [id number] 10/09/2019 02:09:00 AM EDT [facility] 1 Medication Reconciliation Report [facility] Emergency Department [address] [place] [address] Phone #: ext- [phone] 10/09/2019 02:08 Patient: [...] Value Range Interpretation Code Description Data [place] e(s) Supporting Document(s) ID Date Data Source [id number] 10/09/2019 02:09:00 AM EDT [facility] 1 Medication Administration Record [facility] Emergency Department [address] [place] [address] Phone #: ext- [phone] 10/09/2019 02:08 Patient: BRUNA LEE Sex: F : 1985 Age: 34yWeight: 81.1 kgHeight/Length: 60 inBMI: 34.9ALLERGIES: Penicillins, Sulfa Antibiotics Date/Time Medication Administered Medication OrderedGiven IBUPROFEN [PO] Ibuprofen 800 mg PO X1 dose: 42770:39 10/09/2019 Dose: 800 mg Tablets PO mg (NOW x1)Meme Maldonado R.N. Name Value Range Interpretation Code Description Data [place] rce(s) Supporting Document(s) ID Date Data Source [id number] 10/09/2019 02:09:00 AM EDT [facility] 1 General Instructions [facility] Emergency Department [address] [place] [address] Phone #: ext- [phone] 10/09/2019 02:08 Patient: [...] INFORMATIONViral Pharyngitis (Sore Throat) 2 General Instructions [facility] Emergency Department [address] [place] [address] Phone #: ext- [phone] 10/09/2019 02:08 Patient: [...] glass of warm water. 3 General Instructions [facility] Emergency Department [address] [place] [address] Phone #: ext- [phone] 10/09/2019 02:08 Patient: [...] breathing or noisy breathing 4 General Instructions [facility] Emergency Department [address] [place] [address] Phone #: ext- [phone] 10/09/2019 02:08 Patient: BRUNA LEE Sex: F : 1985 Age: 34y Muffled voice New rash Other symptoms are getting worse [id number] [employer]. [address] [place] [address]. All rights reserved. This information is not intended as asubstitute for professional medical care. Always follow your healthcare professional's instructions. You have been given the following additional information: Pharyngitis, Viral(Electronically signed by Evonne Hagen M.D. 10/09/2019 03:51) Name Value Range Interpretation Code Description Data [place] rce(s) Supporting Document(s) ID Date Data Source [id number] 10/09/2019 02:09:00 AM EDT [facility] 1 Clinical Report - Nurses [facility] Emergency Department [address] [place] [address] Phone #: ext- [phone] 10/09/2019 02:08 Patient: BRUNA LEE Sex: F : 1985 Age: 34yTRIAGEHistorian: EMS and patient.Triage time: 02:08 10/09/2019.Chief Complaint: SORE THROAT.This started just prior to arrival. The patient has had a hoarse voice.Treatment NETWORK CONTRACT MANAGER:Took Tylenol. (arthritis kind).EMS Treatment NETWORK CONTRACT MANAGER:See EMS report.SEPSIS SCREEN: SIRS Screen: heart rate greater than 90. Sepsis Screen negative. No suspected orconfirmed signs of infection present. --02:10/09/19 Meme Maldonado R.N.02:11 10/09/19. BP: 130/86. MAP: 100. HR: 105. RR: 18. O2 saturation: 100%. Temp: 98.5 F. Pain levelnow: 12/05. --02:10/09/19 Meme Maldonado R.N.Treatment NETWORK CONTRACT MANAGER:(Seen at [facility] for this issue within the last [...] Maldonado R.N.AllergiesPenicillins.(hives) 2 Clinical Report - Nurses [facility] Emergency Department [address] [place] [address] Phone #: ext- [phone] 10/09/2019 02:08 Patient: [...] Dental decay. 3 Clinical Report - Nurses [facility] Emergency Department [address] [place] [address], [place] [address] Phone #: ext- [phone] 10/09/2019 02:08 Patient: [...] Patient verbalized understanding. Written instructions provided in Yemeni. The patient was discharged by the physician. [...] rce(s) Supporting Document(s) ID Date Data Source [id number] 10/09/2019 02:09:00 AM EDT [facility] 1 Clinical Report - Physicians/Mid Levels [facility] Emergency Department [address] [place] [address] Phone #: ext- [phone] 10/09/2019 02:08 Patient: [...] (per EMS, pt is well known to [facility] ER for multiple ER visits for multiple somatic and psychiatric complaints; tonight, she complains of sore throat, hoarse voice, bugs on her skin, etc.; pt has therapist in [place]). Similar symptoms previously. Patient has had similar [...] Medications: 2 Clinical Report - Physicians/Mid Levels [facility] Emergency Department [address] [place] [address] Phone #: ext- [phone] 10/09/2019 02:08 [id number] Sex[facility] F : 1985 Age: 34y Suboxone [...] PROCEDURAL CONTROL VALID ){ KIT LOT # [id number] ){ KIT EXP DATE [id number] )The 3 Clinical Report - Physicians/Mid Levels [facility] Emergency Department [address] [place] [address] Phone #: ext- [phone] 10/09/2019 02:08 Patient: [...] was requested by: Evonne Hagen Reference #: [id number] Others' Prescriptions Patient Name: Bruna LeeBirth Date: 1985 Address: [address] [place], [place] [address]Sex: Female Rx Written Rx Dispensed Drug Quantity Days Supply Prescriber Name Payment Method Dispenser 09/30/2019 09/30/2019 buprenorphine-naloxone 8-2 mg sl film 56 28 Moehs, Jose J Bundy MD Medicaid [facility] 08/28/2019 08/28/2019 [...] 56 28 Moehs, Jose J Bundy MD [facility] 05/01/2019 05/01/2019 buprenorphine-naloxone 8-2 mg sl film 56 28 Moehs, Jose J Bundy MD Medicaid [facility] 04/03/2019 04/04/2019 buprenorphine-naloxone 8-2 mg [...] 12 mg-3 mg sl film 28 28 MoehsJose J MD Medicaid [facility] 12/10/2018 12/10/2018 suboxone 8 mg-2 mg sl film 56 28 MoehsJose J MD Medicaid [facility] 4 Clinical Report - Physicians/Mid Levels [facility] Emergency Department [address] [place] [address] Phone #: ttd- [phone] 10/09/2019 02:08 Patient: BRUNA LEE Sex: F [...] unknown*. 5 Clinical Report - Physicians/Mid Levels [facility] Emergency Department [address] [place] [address] Phone #: ext- [phone] 10/09/2019 02:08 Patient: [...] rce(s) Supporting Document(s) ID Date Data Source [id number] 10/09/2019 03:02:00 AM EDT [facility] Name Value Range Interpretation Code Description Data [place] rce(s) Supporting Document(s) RAPID STREP NEGATIVE NORMAL: NEGATIVE [facility] RAPID STREP REENTER NEGATIVE NORMAL: NEGATIVE [facility] { PROCEDURAL CONTROL VALID ){ KIT LOT # [id number] ){ KIT EXP DATE 598535 )The Strep A 2 assay utilizes isothermal [...] basis for treatment. ID Date Data Source [id number] 09/22/2019 02:34:28 PM EDT [facility] Measurements & CalculationsHeight: 61 inches (5 [...] (ER) or urgent care clinic? Yes - [facility] Have you seen another healthcare provider? Yes - [facility] Have you seen a dentist? NoIntake [...] this is different. Sees [facility] for her mental health issues (schizophrenia) and feels that this is going well.HPI performed by: Francesco Ritchie MD, September 22, 2019 2:52 PMTransitions of Care InboundProblem ReviewProblem List was reviewed and/or updated during this visit.Medication Reconciliation & ReviewMedication List was reviewed and/or updated during this visit, including review of any jbmp-azz-hooxikv medications, herbal therapies, and/or supplements.Allergy ReviewAllergy List [...] Plan Problems:Added: Hematemesis - cause unknown (ICD-578.0) (GFN27-N08.0) Assessment: Instructions: Currently asymptomatic but worrisome enough to warrant further workup.Avoid NSAIDs and refer to GI.Return to ER if this occurs again.Assessed:Peripheral neuropathy (ICD-356.9) (JUV53-C09.9) Assessment: Instructions: I am not sure where [...] (Critical)Orders:Adult - Ofc Vst, EST, Level III [CPT-45821] Gastroenterology Consult [CPT-13643] Medications:GABAPENTIN 400 MG ORAL CAPSULE (GABAPENTIN) take one tablet by mouth three times daily as needed #90[Capsule] x 0 Route:ORAL Entered and Authorized by: Francesco Ritchie MD Method used: Electronically to [facility] (retail) [address] [place] [address] Note to Pharmacy: Route: ORAL; Indications: PERIPHERAL NEUROPATHY;BILATERAL CARPAL TUNNEL SYNDROME RxID: [id number] 1000 MG ORAL TABLET (LEVETIRACETAM) 1 pill po bid #60[Tablet] x 0 Route:ORAL Entered and Authorized by: Francesco Ritchie MD Method used: Electronically to [facility] (retail) [address] [place] [address] Note to Pharmacy: Route: ORAL; RxID: [id number] SUCCINATE 50 MG ORAL TABLET (SUMATRIPTAN SUCCINATE) take one tab po at the onset of headache. may repeat dose x one if no releif after two hours. #15[Tablet] x 0 Entered and Authorized by: Francesco Ritchie MD Method used: Electronically to [facility] (retail) [address] [place] [address] RxID: [id number] OMEPRAZOLE 20 MG ORAL TABLET DELAYED RELEASE (OMEPRAZOLE) One tablet by mouth every day #30[Tablet] x 2 Route:ORAL Entered and Authorized by: Francesco Ritchie MD Method used: Electronically to [facility] (retail) [address] [place] [address] Note to Pharmacy: Route: ORAL; RxID: [id number] DOXYCYCLINE MONOHYDRATE 100 MG ORAL TABLET (DOXYCYCLINE MONOHYDRATE) take one tablet by mouth twice daily x 5 days #10[Tablet] x 0 Route:ORAL Entered by: Demetria Elliott MA Authorized by: Mavis DIEGO Method used: Electronically to [facility] (retail) [address] [place] [address] RxID: [id number] signed by Francesco Ritchie MD on 09/22/2019 at 5:42 PM Name Value Range Interpretation Code Description Data [place] rce(s) Supporting Document(s) ID Date Data Source [id number] 09/10/2019 10:45:00 PM EDT [facility] Name Value Range Interpretation Code Description Data [place] rce(s) Supporting Document(s) BG FASTING 96 mg/dL 70-100 N [facility] ID Date Data Source [id number] 09/10/2019 10:45:00 PM EDT [facility] Name Value Range Interpretation Code Description Data [place] rce(s) Supporting Document(s) HCT 37.4 % 36.0-47.0 N [facility] HGB 12.1 g/dL 12.0-15.5 [facility] MCH 32.4 G/DL pg 32.0-36.5 N [facility] MCHC 30.2 PG % 27.0-33.0 [facility] PLATELETS 244 10 10*3/mm3 150-450 N [facility] RBC 4.01 10 10*6/mm3 4.00-5.40 [facility] RDW 12.8 % 11.5-14.5 [facility] WBC TOTAL 4.9 4.0-10.0 N [facility] ID Date Data Source [id number] 05/20/2019 11:42:55 AM EDT [facility] Measurements & CalculationsHeight: 61 inches (5 [...] you seen another healthcare provider? Yes - [facility] Have you seen a dentist? NoRate [...] during this visit, including review of any psof-eku-nmoxbig medications, herbal therapies, and/or supplements.Allergy ReviewAllergy List [...] Problems:Added: Phlebitis and thrombophlebitis of unspecified site (PBB17-Z03.9): right AC and right tibia Assessment: Instructions: May continue warm compresses 3-4 times daily as needed. Please try to keep extremities elevated. We have sent a prescription to your pharmacy today. Please take medication as prescribed. Please report any major side effects.Phlebitis and thrombophlebitis of unspecified site (DJX29-M88.9): right AC and right tibia Assessment: right foot and right forearmAssessed:Tobacco use (ICD-305.1) (IPI24-U63.0) Assessment: Instructions: Please continue to try to quit smoking.Health Screening (ICD-V70.0) (VUW61-Y22.9) Assessment: Instructions: Fasting labs ordered for you today. Please return prior to your next visit to have labs drawn. Please fast for 8-10 hours prior.Substance abuse (ICD-305.90) (PDO14-Z24.10) Assessment: Instructions: Please try to avoid the [...] (Critical)BACTRIM (Critical)* SULFA ANTIBIOTICS (Critical)Orders:COMP METABOLIC PANEL [CPT-59401] CBC W/DIFF [CPT- 29356] HgBA1c [CPT-48988] LIPID PANEL [CPT-98485] TSH [CPT-83005] T-4 free [CPT- 45495] Vitamin D 250H Unspecified [CPT-45582] URINALYSIS [CPT-47923] VITAMIN B- 12 [CPT-85430] Folate (Folic Acid Serum) [CPT-41449] IRON [CPT-03755] Adult - Ofc Vst, EST, Level III [CPT-15922] Follow-Up Return to clinic: 2-3 weeks for follow up Additional Follow-Up: If symptoms worsen, please return to clinic or the ERClinical Visit Summary CompletedMedications:DOXYCYCLINE MONOHYDRATE 100 MG ORAL TABLET (DOXYCYCLINE MONOHYDRATE) take one tablet by mouth twice daily x 5 days #10[Tablet] x 0 Route:ORAL Entered and Authorized by: Mavis DIEGO Method used: Electronically to [facility] (retail) [address] [place] [address] Note to Pharmacy: Route: ORAL; Indications: PHLEBITIS AND THROMBOPHLEBITIS OF UNSPECIFIED SITE RxID: [id number] signed by Mavis DIEGO on 05/24/2019 at 11:37 PM ____ Name Value Range Interpretation Code Description Data [place] rce(s) Supporting Document(s) Procedure Social History Code Duration Value Status Description Data Source(s ) Smoking 03/30/2020 12:00:00 AM EST Current Smoker completed Curre nt Smoker eCW1 ([facility]) Smoking 03/30/2020 12:00:00 AM EST Current Smoker completed Curre nt Smoker eCW1 ([facility]) Smoking 03/01/2020 12:00:00 AM EST Current Smoker completed Curre nt Smoker eCW1 ([facility]) Smoking 03/01/2020 12:00:00 AM EST Current Smoker completed Curre nt Smoker eCW1 ([facility]) Smoking 03/01/2020 12:00:00 AM EST Current Smoker completed Curre nt Smoker eCW1 ([facility]) Smoking 02/18/2020 12:00:00 AM EST Current Smoker completed Curre nt Smoker eCW1 ([facility]) Smoking 12/24/2019 12:00:00 AM EDT Current Smoker completed Curre nt Smoker eCW1 ([facility]) Smoking 12/24/2019 12:00:00 AM EDT Current Smoker completed Curre nt Smoker eCW1 ([facility]) Smoking 12/24/2019 12:00:00 AM EDT Current Smoker completed Curre nt Smoker eCW1 ([facility]) Smoking 12/24/2019 12:00:00 AM EDT Current Smoker completed Curre nt Smoker eCW1 ([facility]) Smoking 12/24/2019 12:00:00 AM EDT Current Smoker completed Curre nt Smoker eCW1 ([facility]) Smoking 12/24/2019 12:00:00 AM EDT Current Smoker completed Curre nt Smoker eCW1 ([facility]) Smoking 12/24/2019 12:00:00 AM EDT Current Smoker completed Curre nt Smoker eCW1 ([facility]) Smoking 10/31/2019 12:00:00 AM EDT Current Smoker completed Curre nt Smoker eCW1 ([facility]) Smoking 10/31/2019 12:00:00 AM EDT Current Smoker completed Curre nt Smoker eCW1 ([facility]) Smoking 10/31/2019 12:00:00 AM EDT Current Smoker completed Curre nt Smoker eCW1 ([facility]) Vital Signs ID Date Data Source UNK Name Value Range Interpretation Code Description Data Source(s) Oxygen saturation in Arterial blood by Pulse oximetry 98 % 98 % eCW1 ([facility]) Respiratory rate 18 /min 18 /min eCW1 ([facility]) Heart rate 119 /min 119 /min eCW1 ([facility]) Body mass index (BMI) [Ratio] 35.74 kg/m2 35.74 kg/m2 eCW1 ([facility]) Body weight 183.0 [lb_av] 183.0 [lb_av] eCW1 ([facility]) Body height 60.0 [in_i] 60.0 [in_i] eCW1 ([facility]) Oxygen saturation in Arterial blood by Pulse oximetry 99 % 99 % eCW1 ([facility]) Respiratory rate 18 /min 18 /min eCW1 ([facility]) Heart rate 93 /min 93 /min eCW1 ([facility]) Body mass index (BMI) [Ratio] 35.27 kg/m2 35.27 kg/m2 eCW1 ([facility]) Body weight 180.6 [lb_av] 180.6 [lb_av] eCW1 ([facility]) Body height 60 [in_i] 60 [in_i] eCW1 ([facility]) Oxygen saturation in Arterial blood by Pulse oximetry 97 % 97 % eCW1 ([facility]) Respiratory rate 18 /min 18 /min eCW1 ([facility]) Heart rate 89 /min 89 /min eCW1 ([facility]) Body mass index (BMI) [Ratio] 36.48 kg/m2 36.48 kg/m2 eCW1 ([facility]) Body weight 186.8 [lb_av] 186.8 [lb_av] eCW1 ([facility]) Body height 60 [in_i] 60 [in_i] eCW1 ([facility]) Body height 60 [in_i] 60 [in_i] eCW1 ([facility]) Oxygen saturation in Arterial blood by Pulse oximetry 98 % 98 % eCW1 ([facility]) Respiratory rate 18 /min 18 /min eCW1 ([facility]) Heart rate 86 /min 86 /min eCW1 ([facility]) Body temperature 98.0 [degF] 98.0 [degF] eCW1 ( [facility]) Body mass index (BMI) [Ratio] 32.10 kg/m2 32.10 kg/m2 eCW1 ([facility]) Body weight 164.4 [lb_av] 164.4 [lb_av] eCW1 ([facility]) Oxygen saturation in Arterial blood by Pulse oximetry 99 % 99 % eCW1 ([facility]) Respiratory rate 18 /min 18 /min eCW1 ([facility]) Heart rate 100 /min 100 /min eCW1 ([facility]) Body temperature 98.7 [degF] 98.7 [degF] eCW1 ( [facility]) Body mass index (BMI) [Ratio] 30.70 kg/m2 30.70 kg/m2 eCW1 ([facility]) Body weight 157.2 [lb_av] 157.2 [lb_av] eCW1 ([facility]) Body height 60 [in_i] 60 [in_i] eCW1 ([facility]) ID Date Data Source [id number] 12/26/2019 01:56:00 PM EDT [facility] Name Value Range Interpretation Code Description Data Source(s) WEIGHT 72.3 kilos 72.3 kilos [facility] HEIGHT 152.4 centimeters 152.4 centimeters [facility] WEIGHT 75 kilos 75 kilos [facility] HEIGHT 152.4 centimeters 152.4 centimeters [facility] ID Date Data Source [id number] 12/10/2019 06:07:00 AM EDT [facility] Name Value Range Interpretation Code Description Data Source(s) WEIGHT 68 kilos 68 kilos [facility] HEIGHT 152.4 centimeters 152.4 centimeters [facility] WEIGHT 68.4 kilos 68.4 kilos [facility] HEIGHT 152.4 centimeters 152.4 centimeters [facility] ID Date Data Source [id number] 12/08/2019 01:43:00 PM EDT [facility] Name Value Range Interpretation Code Description Data Source(s) WEIGHT 75 kilos 75 kilos [facility] HEIGHT 152.4 centimeters 152.4 centimeters [facility] ID Date Data Source [id number] 12/08/2019 01:43:00 PM EDT [facility] Name Value Range Interpretation Code Description Data Source(s) WEIGHT 74 kilos [facility]ilos [facility] HEIGHT 160.02 centimeters 160.02 centimeter [facility] Patient Treatment Plan of Care Planned Activity Planned Date Details Description Data Source (s) Doxepin Hydrochloride 25 MG Oral Capsule 03/09/2020 12:00:00 AM EST eCW1 ([facility]) Clonidine Hydrochloride 0.2 MG Oral Tablet 12/24/2019 12:00:00 AM E DT eCW1 ([facility]) Clonidine Hydrochloride 0.2 MG Oral Tablet 12/24/2019 12:00:00 AM E DT eCW1 ([facility]) Clonidine Hydrochloride 0.2 MG Oral Tablet 12/24/2019 12:00:00 AM E DT eCW1 ([facility]) Clonidine Hydrochloride 0.2 MG Oral Tablet 12/24/2019 12:00:00 AM E DT eCW1 ([facility]) Clonidine Hydrochloride 0.2 MG Oral Tablet 12/24/2019 12:00:00 AM E DT eCW1 ([facility]) lisdexamfetamine dimesylate 50 MG Oral Capsule [Vyvans e] 11/04/2019 12:00:00 AM EDT eCW1 ([facility]) Clonazepam 0.5 MG Oral Tablet 11/04/2019 12:00:00 AM EDT eCW1 ([facility]) Citalopram 20 MG Oral Tablet [Celexa] 11/04/2019 12:00:00 AM EDT eCW1 ([facility]) Risperidone 3 MG Oral Tablet [Risperdal] 07/07/2019 12:00:00 AM EDT eCW1 ([facility]) Risperidone 3 MG Oral Tablet [Risperdal] 07/07/2019 12:00:00 AM EDT eCW1 ([facility]) Risperidone 2 MG Oral Tablet [Risperdal] 07/07/2019 12:00:00 AM EDT eCW1 ([facility]) Risperidone 2 MG Oral Tablet [Risperdal] 07/07/2019 12:00:00 AM EDT eCW1 ([facility]) Risperidone 3 MG Oral Tablet [Risperdal] 07/07/2019 12:00:00 AM EDT eCW1 ([facility])
[2020-04-09] MEDS ORDERED: NS 1,000 ML IV ONE (02:30)
[2020-04-09 03:08] LABS: BASO % 0.5 % (0.0-1.0); EOS % 0.8 % (0.0-3.0); HEMATOCRIT 41.9 % (36.0-47.0); HEMOGLOBIN 13.2 g/dl (12.0-15.5); LYMPH # 1.7 10^3/uL (1.5-5.0); LYMPH % 44.9 % (24.0-44.0); MEAN CORPUSCULAR HGB CONC 31.5 g/dl (32.0-36.5); MEAN CORPUSCULAR VOLUME 92.1 fl (80.0-96.0); MONO # 0.4 10^3/uL (0.0-0.8); MONO % 11.2 % (0.0-5.0); NEUTROPHILS # 1.6 10^3/uL (1.5-8.5); NEUTROPHILS % 42.1 % (36.0-66.0); RED BLOOD COUNT 4.55 10^6/uL (4.00-5.40); WHITE BLOOD COUNT 3.9 10^3/uL (4.0-10.0)
[2020-04-09 03:26] LABS: HCG, SERUM QUALITATIVE NEGATIVE (NEGATIVE)
[2020-04-09 03:45] LABS: ACETAMINOPHEN LEVEL 2.3 UG/ML (10.0-30.0); ALBUMIN 4.1 GM/DL (3.2-5.2); ALT/SGPT 31 U/L (12-78); BILIRUBIN,DIRECT < 0.1 MG/DL (0.0-0.2); BLOOD UREA NITROGEN 10 MG/DL (7-18); CALCIUM LEVEL 8.5 MG/DL (8.5-10.1); CARBON DIOXIDE LEVEL 26 MEQ/L (21-32); CHLORIDE LEVEL 103 MEQ/L (98-107); CREATININE FOR GFR 0.76 MG/DL (0.55-1.30); ETHYL ALCOHOL (ETHANOL) < 0.003 % (0.000-0.010); GLOMERULAR FILTRATION RATE > 60.0 (>60); GLUCOSE, FASTING 113 MG/DL (70-100); POTASSIUM SERUM 4.6 MEQ/L (3.5-5.1); SALICYLATE LEVEL 2.5 MG/DL (5.0-30.0); SODIUM LEVEL 138 MEQ/L (136-145); TOTAL PROTEIN 7.8 GM/DL (6.4-8.2)
[2020-04-09 03:53] LABS: BILIRUBIN,TOTAL < 0.1 MG/DL (0.2-1.0)
--- OUTSIDE RECORDS SUMMARY | 2020-04-09 04:01 | CCD ---
Author Author [facility] Organization [facility] Address Unknown Phone Unavailable Care Team Providers Care Manager Communication Name Role Phone Kori FLORES Unavailable Unavailable [...] Jeremie HOGAN MD Unavailable Unavailable JESICA, @ [facility] Unavailable Unavailable BEHZAD HOGAN MD Unavailable Unavailable Ching, Reginah W Kassidy MANAGER OF EXHIBITIONS AND COLLECTIONS-C Unavailable Unavailabl e Ching, Reginah W Kassidy MANAGER OF EXHIBITIONS AND COLLECTIONS-C Unavailable Unavailabl e Ching, Reginah W Kassidy MANAGER OF EXHIBITIONS AND COLLECTIONS-C Unavailable Unavailabl e Ching, Reginah W Kassidy MANAGER OF EXHIBITIONS AND COLLECTIONS-C Unavailable Unavailabl e Ching, Reginah W Kassidy MANAGER OF EXHIBITIONS AND COLLECTIONS-C Unavailable Unavailabl e Ching, Reginah W Kassidy MANAGER OF EXHIBITIONS AND COLLECTIONS-C Unavailable Unavailabl e Ching, Reginah W Kassidy MANAGER OF EXHIBITIONS AND COLLECTIONS-C Unavailable Unavailabl e Ching, Reginah W Kassidy MANAGER OF EXHIBITIONS AND COLLECTIONS-C Unavailable Unavailabl e Ching, Reginah W Kassidy MANAGER OF EXHIBITIONS AND COLLECTIONS-C Unavailable Unavailabl e Ching, Reginah W Kassidy MANAGER OF EXHIBITIONS AND COLLECTIONS-C Unavailable Unavailabl e Ching, Reginah W Kassidy MANAGER OF EXHIBITIONS AND COLLECTIONS-C Unavailable Unavailabl e Ching, Reginah W Kassidy MANAGER OF EXHIBITIONS AND COLLECTIONS-C Unavailable Unavailabl e Ching, Reginah W Kassidy MANAGER OF EXHIBITIONS AND COLLECTIONS-C Unavailable Unavailabl e Ching, Reginah W Kassidy MANAGER OF EXHIBITIONS AND COLLECTIONS-C Unavailable Unavailabl e Chign, Reginah W Kassidy MANAGER OF EXHIBITIONS AND COLLECTIONS-C Unavailable Unavailabl e Ching, Reginah W Kassidy MANAGER OF EXHIBITIONS AND COLLECTIONS-C Unavailable Unavailabl e Ching, Elijah Yi MANAGER OF EXHIBITIONS AND COLLECTIONS-C Unavailable Unavailabl e Ching, Elijah Yi MANAGER OF EXHIBITIONS AND COLLECTIONS-C Unavailable Unavailabl e Ching, Elijah Yi MANAGER OF EXHIBITIONS AND COLLECTIONS-C Unavailable Unavailabl e Ching, Elijah Yi MANAGER OF EXHIBITIONS AND COLLECTIONS-C Unavailable Unavailabl e Ching, Elijah Yi MANAGER OF EXHIBITIONS AND COLLECTIONS-C Unavailable Unavailabl e Ching, Elijah Yi MANAGER OF EXHIBITIONS AND COLLECTIONS-C Unavailable Unavailabl e Ching, Elijah Yi MANAGER OF EXHIBITIONS AND COLLECTIONS-C Unavailable Unavailabl e Ching, Elijah Yi MANAGER OF EXHIBITIONS AND COLLECTIONS-C Unavailable Unavailabl e Ching, Elijah Yi MANAGER OF EXHIBITIONS AND COLLECTIONS-C Unavailable Unavailabl e Ching, Elijah Yi MANAGER OF EXHIBITIONS AND COLLECTIONS-C Unavailable Unavailabl e Ching, Elijah Yi MANAGER OF EXHIBITIONS AND COLLECTIONS-C Unavailable Unavailabl e Ching, Elijah Yi MANAGER OF EXHIBITIONS AND COLLECTIONS-C Unavailable Unavailabl e Ching, Elijah Yi MANAGER OF EXHIBITIONS AND COLLECTIONS-C Unavailable Unavailabl e Ching, Elijah Yi MANAGER OF EXHIBITIONS AND COLLECTIONS-C Unavailable Unavailabl e Ching, Elijah Yi MANAGER OF EXHIBITIONS AND COLLECTIONS-C Unavailable Unavailabl e Ching, Elijah Yi MANAGER OF EXHIBITIONS AND COLLECTIONS-C Unavailable Unavailabl e Lino Marie MD Unavailable Unavailable Lino Marie MD Unavailable Unavailable Lino Marie MD Unavailable Unavailable Lino Marie MD Unavailable Unavailable FrankLino jasmine MD Unavailable Unavailable FrankLino jasmine MD Unavailable Unavailable FrankLino jasmine MD Unavailable Unavailable FrankLino jasmine MD Unavailable Unavailable Lino Marie MD Unavailable [...] Unavailable FrankLino jasmine MD Unavailable Unavailable FrankLino ajsmine MD Unavailable Unavailable Frank, F Femi MD Unavailable Unavailable Lino Marie MD Unavailable Unavailable FrankLino jasmine MD Unavailable Unavailable Lino Marie MD Unavailable Unavailable Frank, Lino Kahn MD Unavailable Unavailable Lino Marie MD Unavailable Unavailable Frank, Lino Kahn MD Unavailable Unavailable Frank, Lino Kahn MD Unavailable Unavailable Lino Marie MD Unavailable Unavailable Frank, Lino Kahn MD Unavailable Unavailable Frank, Lino Kahn MD Unavailable Unavailable Lino Marie MD Unavailable Unavailable Frank, Lino Kahn MD Unavailable Unavailable Frank, Lino Kahn MD Unavailable Unavailable Frank, Lino Kahn MD Unavailable Unavailable Frank, Lino Kahn MD Unavailable Unavailable Lino Marie MD Unavailable Unavailable Frank, Lino Kahn MD Unavailable Unavailable Frank, Lino Kahn MD Unavailable Unavailable Lino Marie MD Unavailable Unavailable DIOGENES BUENO MD Unavailable [...] BROWN, L JANE Unavailable Unavailable DESJARLAIS, KAROLYN SURGICAL SERVICES TECH Unavailable Unavailable DESJARLAIS, KAROLYN SURGICAL SERVICES TECH Unavailable Unavailable DESJARLAIS, KAROLYN SURGICAL SERVICES TECH Unavailable Unavailable DESJARLAIS, KAROLYN SURGICAL SERVICES TECH Unavailable Unavailable DESJARLAIS, KAROLYN SURGICAL SERVICES TECH Unavailable Unavailable DESJARLAIS, KAROLYN SURGICAL SERVICES TECH Unavailable Unavailable DESJARLAIS, KAROLYN SURGICAL SERVICES TECH Unavailable Unavailable DESJARLAIS, KAROLYN SURGICAL SERVICES TECH Unavailable Unavailable DESJARLAIS, KAROLYN SURGICAL SERVICES TECH Unavailable Unavailable MAHESH RECINOS Unavailable Unavailable Lester, Mavis MANAGER OF EXHIBITIONS AND COLLECTIONS MANAGER OF EXHIBITIONS AND COLLECTIONS Unavailable Unavailable Lester, A Mavis MANAGER OF EXHIBITIONS AND COLLECTIONS Unavailable Unavailable Lester, A Mavis MANAGER OF EXHIBITIONS AND COLLECTIONS Unavailable Unavailable Lester, A Mavis MANAGER OF EXHIBITIONS AND COLLECTIONS Unavailable Unavailable Lester, A Mavis MANAGER OF EXHIBITIONS AND COLLECTIONS Unavailable Unavailable Lester, A Mavis MANAGER OF EXHIBITIONS AND COLLECTIONS Unavailable Unavailable Lester, A Mavis MANAGER OF EXHIBITIONS AND COLLECTIONS Unavailable Unavailable Lester, A Mavis MANAGER OF EXHIBITIONS AND COLLECTIONS Unavailable Unavailable Lester, A Mavis MANAGER OF EXHIBITIONS AND COLLECTIONS Unavailable Unavailable Lester, A Mavis MANAGER OF EXHIBITIONS AND COLLECTIONS Unavailable Unavailable Lester, A Mavis MANAGER OF EXHIBITIONS AND COLLECTIONS Unavailable Unavailable Lester, A Mavis MANAGER OF EXHIBITIONS AND COLLECTIONS Unavailable Unavailable Lester, A Mavis MANAGER OF EXHIBITIONS AND COLLECTIONS Unavailable Unavailable Lester, A Mavis MANAGER OF EXHIBITIONS AND COLLECTIONS Unavailable Unavailable Lester, A Mavis MANAGER OF EXHIBITIONS AND COLLECTIONS Unavailable Unavailable Lester, A Mavis MANAGER OF EXHIBITIONS AND COLLECTIONS Unavailable Unavailable Lester, A Mavis MANAGER OF EXHIBITIONS AND COLLECTIONS Unavailable Unavailable Lester, A Mavis MANAGER OF EXHIBITIONS AND COLLECTIONS Unavailable Unavailable Lester, A Mavis MANAGER OF EXHIBITIONS AND COLLECTIONS Unavailable Unavailable Lester, A Mavis MANAGER OF EXHIBITIONS AND COLLECTIONS Unavailable Unavailable Lester, A Mavis MANAGER OF EXHIBITIONS AND COLLECTIONS Unavailable Unavailable Lester, A Mavis MANAGER OF EXHIBITIONS AND COLLECTIONS Unavailable Unavailable Lester, A Mavis MANAGER OF EXHIBITIONS AND COLLECTIONS Unavailable Unavailable Lester, A Mavis MANAGER OF EXHIBITIONS AND COLLECTIONS Unavailable Unavailable Lester, A Mavis MANAGER OF EXHIBITIONS AND COLLECTIONS Unavailable Unavailable Lester, A Mavis MANAGER OF EXHIBITIONS AND COLLECTIONS Unavailable Unavailable Lester, A Mavis MANAGER OF EXHIBITIONS AND COLLECTIONS Unavailable Unavailable Lester, A Mavis MANAGER OF EXHIBITIONS AND COLLECTIONS Unavailable Unavailable Lester, A Mavis MANAGER OF EXHIBITIONS AND COLLECTIONS Unavailable Unavailable BLUM, KATRIN Unavailable Unavailable Re-disclosure [...] protected by Article 27-F of the [facility] Public Health law. If you continue you may have access to information: Regarding HIV / AIDS; Provided by facilities licensed or operated by the [facility] Office of Mental Health; or Provided by the [facility] Office for People With Developmental Disabilities. If such information is present, then the following [facility] mandated warning applies: This information has [...] law may result in a fine or custodial sentence or both. A general authorization for the release of medical or other information is NOT sufficient authorization for further disc losure. Allergies and Adverse Reactions Type Description Substance Reaction Status Data Source(s ) Drug allergy Drug allergy AMOXICLIIN SWELLING, HIVES R [facility] Drug allergy olanzapine olanzapine [facility] Drug allergy trimethoprim trimethoprim "BLISTERS IN MOUTH" [facility] Drug allergy sulfamethoxazole sulfamethoxazole "BLISTERS IN MOUTH" [facility] Drug allergy haloperidol haloperidol [facility] Drug allergy Sulfa (Sulfonamide Antibiotics) Sulfa (Sulfonami de Antibiotics) "BLISTERS IN MOUTH" [facility] Drug allergy Penicillins Penicillins SWELLING, HIVES [facility] Encounters Encounter Providers Location Date Indications Data Source(s ) Preadmit Attender: FAHAD MOONEY 04/15/2020 09:45:0 0 AM [facility] Outpatient [facility] 04/08/2020 12:00:00 AM [place] [address] ([facility]) Outpatient [facility] 04/05/2020 12:00:00 AM [place] [address] ([facility]) Outpatient Attender: NATHAN PAUL PA-C 03/30/2020 10:30:00 AM [facility] Outpatient Attender: Shira Youngblood PA-C 03/30/2020 10:18 :00 AM [facility] 03/30/2020 12:00:00 AM [place] [address] ([facility]) Outpatient Attender: JANE EDWARD 03/23/2020 02:00:00 PM [facility] Outpatient Attender: JANE EDWARD 03/17/2020 10:30:00 AM [facility] Outpatient Attender: JANE EDWARD 03/11/2020 04:00:00 PM [facility] Preadmit Attender: FAHAD MOONEY 03/11/2020 06:30:0 0 AM [facility] Outpatient Attender: KAROLYN VAN NP 03/09/2020 03: 40:00 PM [facility] Outpatient [facility] 03/03/2020 12:00:00 AM [place] [address] ([facility]) Outpatient Attender: Shira Becerraferrer: Shira Youngblood PA-C EMERGENCY ROOM-LAB 03/01/2020 04:49:00 PM EST - 03/01/2020 04:49:00 PM [facility] Outpatient Attender: Shira Youngblood PA-C 03/01/2020 03:45 :00 PM [facility] Outpatient [facility] 03/01/2020 12:00:00 AM EST eCW1 ([facility]) Outpatient [facility] 03/01/2020 12:00:00 AM EST eCW1 ([facility]) Outpatient Attender: KAROLYN VAN NP 02/18/2020 02: 40:00 PM [facility] Outpatient Attender: Kassidy NAIRC 02/18/2020 10:00:0 0 AM [facility] Outpatient [facility] 02/18/2020 12:00:00 AM EST eCW1 ([facility]) Outpatient [facility] 02/10/2020 12:00:00 AM EST eCW1 ([facility]) Outpatient [facility] 02/03/2020 12:00:00 AM EST eCW1 ([facility]) Outpatient [facility] 01/14/2020 12:00:00 AM EST eCW1 ([facility]) Outpatient [facility] 01/06/2020 12:00:00 AM EST eCW1 ([facility]) Outpatient Attender: JOHNATHON PATEL 01/02/2020 10:06:00 A [facility] Outpatient [facility] 01/02/2020 12:00:00 AM EST eCW1 ([facility]) Outpatient Attender: JANE EDWARD 01/01/2020 02:30:00 PM [facility] Outpatient Attender: KAROLYN VAN NP 12/24/2019 11: 00:00 AM [facility] Outpatient Attender: Shira Youngblood PA-C 12/[facility] 12/24/2019 12:00:00 AM EDT eCW1 ([facility]) Outpatient Attender: JANE EDWARD 12/23/2019 01:54:00 PM E [facility] Outpatient [facility] 12/23/2019 12:00:00 AM EDT eCW1 ([facility]) Outpatient Attender: Mavis PATEL 12/12/2019 11:3 5:02 AM EDT [facility] Outpatient Attender: JANEAditya EDWARD 12/11/2019 03:00:00 PM E DT [facility] Outpatient [facility] 12/09/2019 12:00:00 AM EDT eCW1 ([facility]) Outpatient Attender: Mavis DIEGO 12/05/2019 01:2 6:01 PM EDT [facility] Inpatient Attender: PRERNA RIOS MDAdmitter: PRERNA Hopson MD ER-3RD 12/05/2019 10:08:00 AM EDT - 12/10/2019 01:07:00 PM EDT [facility] Patient discharged. Outpatient Attender: NATHAN PAUL PA-C 12/05/2019 09:03:00 AM [facility] Admission cancelled. Disregard status an d admitted date. Inpatient Attender: BEHZAD HOGAN MD Attender: BEHZAD HOGAN MDAttender: DIOGENES BUENO MDAttender: DIOGENES BUENO MDAdmitter: BEHZAD HOGAN MD ER-ICU 12/04/2019 11:06:00 PM EDT - 12/05/2019 10:03:[address] [facility] Patient discharged. Emergency Attender: GINGER Salaser: Melissa Youngblood PA-C EMERGENCY ROOM-ER 12/04/2019 04:21:00 PM EDT - 12/04/2019 08:40:00 PM EDT [facility] Patient discharged. Outpatient Attender: KAROLYN VAN NP 12/04/2019 03: 11:00 PM [facility] Outpatient Attender: Mavis DIEGO 11/29/2019 07:0 4:03 PM EDT [facility] Outpatient Attender: JOHNATHON DIEGO 11/29/2019 07:04:01 P M EDT [facility] Outpatient Attender: Mavis PATEL 11/24/2019 12:2 9:00 PM EDT [facility] Emergency Attender: EVONNE Garzasultant: STAFF NON 11/07/2019 12:19:00 AM EDT - 11/07/2019 04:20:00 AM EDT [facility] Patient discharged. Outpatient [facility] 11/07/2019 12:00:00 AM EDT eCW1 ([facility]) Outpatient Attender: Mavis DIEGO FP 11/04/2019 02:2 6:02 PM EDT [facility] Outpatient Attender: KAROLYN VAN NP 11/04/2019 11: 40:00 AM EDT [facility] Outpatient Attender: Mavis DIEGO FP 11/02/2019 01:2 6:00 PM EDT [facility] Outpatient Attender: Mavis DIEGO FP 10/31/2019 06:0 2:00 PM EDT [facility] Outpatient Attender: JOHNATHON DIEGO FP 10/31/2019 06:01:59 P M EDT [facility] Outpatient Attender: Mavis DIEGO FP 10/31/2019 06:0 1:03 PM EDT [facility] Outpatient Attender: JOHNATHON DIEGO FP 10/31/2019 06:01:01 P M EDT [facility] Outpatient Attender: Shira Youngblood PA-C 10/31/2019 09:06 :00 AM EDT [facility] Outpatient [facility] 10/31/2019 12:00:00 AM EDT eCW1 ([facility]) Outpatient Attender: JANE EDWARD 10/27/2019 11:00:00 AM E [facility] Outpatient Attender: KAROLYN VAN NP 10/21/2019 03: 20:00 PM EDT [facility] Emergency Attender: EVONNE HAGENConsultant: STAFF NON 10/09/2019 02:09:00 AM EDT - 10/09/2019 03:44:00 AM EDT [facility] Patient discharged. Outpatient Attender: KATRIN BLUM 10/06/2019 09:37:00 AM ED [facility] Outpatient Attender: Mavis DIEGO FP 09/25/2019 04:0 9:01 PM EDT [facility] Outpatient Attender: Mavis DIEGO FP 09/25/2019 04:0 7:59 PM EDT [facility] Outpatient Attender: JOHNATHON PATEL 09/23/2019 10:31:00 A M EDT [facility] Outpatient Attender: JOHNATHON DIEGO FP 09/23/2019 10:30:01 A M EDT [facility] Outpatient Attender: JOHNATHON TRUJILLOP FP 09/23/2019 12:02:09 A M EDT [facility] Outpatient Attender: JOHNATHON TRUJILLOP FP 09/22/2019 05:44:02 P M EDT [facility] Outpatient Attender: Mavis TRUJILLOP FP 09/22/2019 05:4 2:59 PM EDT [facility] Outpatient Attender: JOHNATHON TRUJILLOP FP 09/22/2019 02:38:00 P M EDT [facility] Outpatient Attender: Mavis TRUJILLOP FP 09/22/2019 12:0 5:01 PM EDT [facility] Outpatient Attender: JOHNATHON TRUJILLOP FP 09/22/2019 07:56:01 A M EDT [facility] Outpatient Attender: Mavis TRUJILLOP FP 09/16/2019 05:0 8:02 AM EDT [facility] Outpatient Attender: Mavis TRUJILLOP FP 09/14/2019 05:1 9:00 PM EDT [facility] Outpatient Attender: JOHNATHON TRUJILLOP FP 09/14/2019 05:19:00 P M EDT [facility] Outpatient Attender: Mavis TRUJILLOP FP 09/12/2019 11:5 3:00 AM EDT [facility] Outpatient Attender: Mavis TRUJILLOP FP 09/10/2019 11:0 6:01 PM EDT [facility] Outpatient Attender: JOHNATHON TRUJILLOP FP 09/10/2019 11:06:01 P M EDT [facility] Outpatient Referrer: Femi Marie MD 08/15/2019 05:44:00 A M EDT [facility] Outpatient Attender: Mavis TRUJILLOP FP 08/06/2019 09:5 2:01 AM EDT [facility] Outpatient Attender: JOHNATHON DIEGO FP 08/05/2019 07:41:16 P M EDT [facility] Outpatient Attender: Mavis TRUJILLOP FP 08/05/2019 09:2 3:03 AM EDT [facility] Outpatient Attender: JOHNATHON TRUJILLOP FP 08/05/2019 09:23:01 A M EDT [facility] Outpatient Attender: KATRIN BLUM 08/04/2019 09:42:00 AM ED [facility] Outpatient Attender: Mavis DIEGO FP 08/01/2019 10:3 1:00 AM EDT [facility] Outpatient Attender: Mavis DIEGO FP 08/01/2019 10:2 7:02 AM EDT [facility] Outpatient Attender: JOHNATHON DIEGO FP 07/30/2019 11:31:01 A M EDT [facility] Outpatient Attender: KATRIN BLUM 07/07/2019 03:30:00 PM ED [facility] Outpatient Attender: Mavis DIEGO FP 07/04/2019 10:3 3:02 AM EDT [facility] Outpatient Attender: Mavis DIEGO FP 07/03/2019 01:5 2:01 PM EDT [facility] Outpatient Attender: Mavis DIEGO FP 07/02/2019 10:2 8:02 AM EDT [facility] Outpatient Attender: Mavis DIEGO FP 07/01/2019 09:5 7:00 AM EDT [facility] Outpatient Attender: JOHNATHON DIEGO FP 07/01/2019 08:57:00 A M EDT [facility] Outpatient Referrer: Femi Marie MD 07/01/2019 04:55:00 A M EDT [facility] Outpatient Attender: JOHNATHON DIEGO FP 06/30/2019 04:21:00 P M EDT [facility] Outpatient Attender: Mavis DIEGO FP 06/22/2019 06:0 1:59 PM EDT [facility] Outpatient Attender: Mavis DIEGO FP 06/17/2019 03:3 2:01 PM EDT [facility] Outpatient Attender: JOHNATHON DIEGO FP 05/27/2019 12:22:00 P M EDT [facility] Outpatient Attender: Mavis DIEGO FP 05/24/2019 11:3 7:01 PM EDT [facility] Outpatient Attender: JOHNATHON DIEGO FP 05/20/2019 12:36:01 P M EDT [facility] Outpatient Attender: JOHNATHON DIEGO FP 05/20/2019 11:56:00 A M EDT [facility] Outpatient Attender: JOHNATHON TRUJILLOP 05/20/2019 11:42:01 A M EDT [facility] Outpatient Attender: JOHNATHON Batista MANAGER OF EXHIBITIONS AND [facility]CTIONS[facility] 05/01/2019 03:31:00 P M [facility] Outpatient Attender: Mavis Batista MANAGER OF EXHIBITIONS AND COLLECTIONS 04/28/2019 10:4 4:01 AM [facility] Outpatient Attender: KATRIN BLUM 04/21/2019 10:29:00 AM [facility] Outpatient Attender: JOHNATHON Batista MANAGER OF EXHIBITIONS AND COLLECTIONSEN[facility] 04/15/2019 12:44:01 P M [facility] Outpatient Attender: MAHESH RECINOS 02/24/2019 01:46:00 PM [facility] Outpatient Attender: JANE EDWARD 02/21/2019 10:00:00 AM [facility] Outpatient Attender: JOHNATHON Batista MANAGER OF EXHIBITIONS AND COLLECTIONSENCOM[facility] 02/18/2019 09:01:04 P M [facility] Outpatient Attender: MAHESH RECINOS 02/10/2019 02:18:00 PM [facility] Inpatient Attender: CHAO GUERRA MDAtten harjinder: PRERNA RIOS MDAdmitter: PRERNA RIOS MD ER-3RD 12/23/2018 04:01:00 PM EDT - 12/26/2018 01:22:[address] [facility] Patient discharged. Inpatient Attender: ONDINA RAMIREZ MDAdmitter: ONDINA RAMIREZ MD E R-ICU 12/19/2018 05:26:00 PM EDT - 12/23/2018 03:42:00 PM EDT [facility] Patient discharged. Emergency Attender: MATIAS MIKE EMERGENCY ROOM-ER 03:51:00 PM EDT - 12/19/2018 04:47:00 PM [facility] Patient discharged. Medications Medication Brand Name Start Date Product Form Dose Route Admi nistrative Instructions Pharmacy Instructions Status Indications Reaction Description Data Source(s) 8-2 mg 04/07/2020 12:00:00 AM EST film [address] TWO FILMS UNDER THE TONGUE EVERY DAY MAXIMUM DAILY DOSE = [address] TWO FILMS UNDER THE TONGUE EVERY DAY MAXIMUM DAILY DOSE = 2 FILMS SOLD: 04/07/2020 [facility] Doxepin Hydrochloride 25 MG Oral Capsule Doxepin HCl 25 MG D oxepin HCl 25 MG 03/09/2020 12:00:00 AM EST 1.0 {capsule_at_bedtime} active Doxepin HCl 25 MG eCW1 ([facility] jimena) Doxepin Hydrochloride 25 MG Oral Capsule Doxepin HCl 25 MG D oxepin HCl 25 MG 03/09/2020 12:00:00 AM EST 1.0 {capsule_at_bedtime} active Doxepin HCl 25 MG eCW1 ([facility] jimena) Doxepin Hydrochloride 25 MG Oral Capsule Doxepin HCl 25 MG D oxepin HCl 25 MG 03/09/2020 12:00:00 AM EST 1.0 {capsule_at_bedtime} active Doxepin HCl 25 MG eCW1 ([facility]) 8-2 mg 03/03/2020 12:00:00 AM EST film [...] activ e Clonidine HCl 0.2 MG eCW1 ([facility]) Clonidine Hydrochloride 0.2 MG Oral Tablet Clonidine H Cl 0.2 MG Clonidine HCl 0.2 MG 12/24/2019 12:00:00 AM EDT 1.0 {tablet} activ e Clonidine HCl 0.2 MG eCW1 ([facility]ena) Clonidine Hydrochloride 0.2 MG Oral Tablet Clonidine H Cl 0.2 MG Clonidine HCl 0.2 MG 12/24/2019 12:00:00 AM EDT 1.0 {tablet} activ e Clonidine HCl 0.2 MG eCW1 ([facility]ena) Clonidine Hydrochloride 0.2 MG Oral Tablet Clonidine H Cl 0.2 MG Clonidine HCl 0.2 MG 12/24/2019 12:00:00 AM EDT 1.0 {tablet} activ e Clonidine HCl 0.2 MG eCW1 ([facility]) Clonidine Hydrochloride 0.2 MG Oral Tablet Clonidine H Cl 0.2 MG Clonidine HCl 0.2 MG 12/24/2019 12:00:00 AM EDT 1.0 {tablet} suspe nded Clonidine HCl 0.2 MG eCW1 ([facility]) Clonidine Hydrochloride 0.2 MG Oral Tablet Clonidine H Cl 0.2 MG Clonidine HCl 0.2 MG 12/24/2019 12:00:00 AM EDT 1.0 {tablet} activ e Clonidine HCl 0.2 MG eCW1 ([facility]) Clonidine Hydrochloride 0.2 MG Oral Tablet Clonidine H Cl 0.2 MG Clonidine HCl 0.2 MG 12/24/2019 12:00:00 AM EDT 1.0 {tablet} activ e Clonidine HCl 0.2 MG eCW1 ([facility]) Clonidine Hydrochloride 0.2 MG Oral Tablet Clonidine H Cl 0.2 MG Clonidine HCl 0.2 MG 12/24/2019 12:00:00 AM EDT 1.0 {tablet} activ e Clonidine HCl 0.2 MG eCW1 ([facility]) Clonidine Hydrochloride 0.2 MG Oral Tablet Clonidine H Cl 0.2 MG Clonidine HCl 0.2 MG 12/24/2019 12:00:00 AM EDT 1.0 {tablet} activ e Clonidine HCl 0.2 MG eCW1 ([facility]) Clonidine Hydrochloride 0.2 MG Oral Tablet Clonidine H Cl 0.2 MG Clonidine HCl 0.2 MG 12/24/2019 12:00:00 AM EDT 1.0 {tablet} activ e Clonidine HCl 0.2 MG [facility]CW1 [facility] [facility] Clonidine Hydrochloride 0.2 MG Oral Tablet Clonidine H Cl 0.2 MG Clonidine HCl 0.2 MG 12/24/2019 12:00:00 AM EDT 1.0 {tablet} suspe nded Clonidine HCl 0.2 MG eCW1 ([facility] jimena) Clonidine Hydrochloride 0.2 MG Oral Tablet Clonidine H Cl 0.2 MG Clonidine HCl 0.2 MG 12/24/2019 12:00:00 AM EDT 1.0 {tablet} suspe nded Clonidine HCl 0.2 MG eCW1 ([facility] jimena) Clonidine Hydrochloride 0.2 MG Oral Tablet Clonidine H Cl 0.2 MG Clonidine HCl 0.2 MG 12/24/2019 12:00:00 AM EDT 1.0 {tablet} activ e Clonidine HCl 0.2 MG eCW1 ([facility] jimena) Clonidine Hydrochloride 0.2 MG Oral Tablet Clonidine H Cl 0.2 MG Clonidine HCl 0.2 MG 12/24/2019 12:00:00 AM EDT 1.0 {tablet} activ e Clonidine HCl 0.2 MG eCW1 ([facility] jimena) 300 mg 12/13/2019 12:00:00 AM [...] THE SKIN ONCE A DAY SOLD: 11/18/2019 [facility] 1 mg 11/18/2019 12:00:00 AM EDT tablet 14 TAKE ONE TABLET BY MOUTH TWICE A DAY FOR THOUGHTS TAKE ONE TABLET BY MOUTH TWICE A DAY FOR THOUGHTS SOLD : 11/18/2019 [facility] 0.5 mg 11/05/2019 12:00:00 AM EDT tablet 7 TAKE ONE TABLET BY MOUTH AT BEDTIME FOR 7 DAYS MAXIMUM DAILY DOSE = 1 TAKE ONE TABLET BY MOUTH AT BEDTIME FOR 7 DAYS MAXIMUM DAILY DOSE = 1 SOLD: 11/06/2019 [facility] 20 mg 11/05/2019 12:00:00 AM EDT [...] {tablet_at_bedtime} active Clonazepam 0 .5 MG eCW1 ([facility]) Clonazepam 0.5 MG Oral Tablet Clonazepam 0.5 MG 11/04/2019 12:00:00 AM EDT 1.0 {tablet_at_bedtime} active Clonazepam 0 .5 MG eCW1 ([facility]) lisdexamfetamine dimesylate 50 MG Oral Capsule [Vyvans e] Vyvanse 50 MG Vyvanse 50 MG 11/04/2019 12:00:00 AM EDT 1.0 {capsule_in_the_morning} active Vyvanse 50 MG eCW1 ([facility]) Citalopram 20 MG Oral Tablet [Celexa] Celexa 20 MG Celexa 20 MG 11/04/2019 12:00:00 AM EDT 1.0 {tablet} active Ce elise 20 MG eCW1 ([facility]) Citalopram 20 MG Oral Tablet [Celexa] Celexa 20 MG Celexa 20 MG 11/04/2019 12:00:00 AM EDT 1.0 {tablet} active Ce elise 20 MG eCW1 ([facility]) lisdexamfetamine dimesylate 50 MG Oral Capsule [Vyvans e] Vyvanse 50 MG Vyvanse 50 MG 11/04/2019 12:00:00 AM EDT 1.0 {capsule_in_the_morning} active Vyvanse 50 MG eCW1 ([facility]) Citalopram 20 MG Oral Tablet [Celexa] Celexa 20 MG Celexa 20 MG 11/04/2019 12:00:00 AM EDT 1.0 {tablet} active Ce elise 20 MG eCW1 ([facility]) 75 mg 11/02/2019 12:00:00 AM EDT tablet [...] 1.0 {tablet} active Risperdal 3 MG eCW1 ([facility]) Risperidone 3 MG Oral Tablet [Risperdal] Risperdal 3 MG Risp erdal 3 MG 07/07/2019 12:00:00 AM EDT 1.0 {tablet} active Risperdal 3 MG eCW1 ([facility]) Risperidone 3 MG Oral Tablet [Risperdal] Risperdal 3 MG Risp erdal 3 MG 07/07/2019 12:00:00 AM EDT 1.0 {tablet} active Risperdal 3 MG eCW1 ([facility]) Risperidone 3 MG Oral Tablet [Risperdal] Risperdal 3 MG Risp erdal 3 MG 07/07/2019 12:00:00 AM EDT 1.0 {tablet} active Risperdal 3 MG eCW1 ([facility]) Risperidone 2 MG Oral Tablet [Risperdal] Risperdal 2 MG Risp erdal 2 MG 07/07/2019 12:00:00 AM EDT 1.0 {tablet} active Risperdal 2 MG eCW1 ([facility]) Risperidone 3 MG Oral Tablet [Risperdal] Risperdal 3 MG Risp erdal 3 MG 07/07/2019 12:00:00 AM EDT 1.0 {tablet} active Risperdal 3 MG eCW1 ([facility]) Risperidone 3 MG Oral Tablet [Risperdal] Risperdal 3 MG Risp erdal 3 MG 07/07/2019 12:00:00 AM EDT 1.0 {tablet} active Risperdal 3 MG eCW1 ([facility]) Risperidone 2 MG Oral Tablet [Risperdal] Risperdal 2 MG Risp erdal 2 MG 07/07/2019 12:00:00 AM EDT 1.0 {tablet} active Risperdal 2 MG eCW1 ([facility]) Risperidone 3 MG Oral Tablet [Risperdal] Risperdal 3 MG Risp erdal 3 MG 07/07/2019 12:00:00 AM EDT 1.0 {tablet} active Risperdal 3 MG eCW1 ([facility]) Risperidone 3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 by Mara Gonzalez R.N. (:11/07/2019)] Name Value Range Interpretation Code Description Data [place] rce(s) Supporting Document(s) ID Date Data Source [id number] 11/07/2019 12:19:00 AM EDT [facility] 1 Medication Reconciliation Report [facility] Emergency Department [address] [place] [address] Phone #: ext- [phone] 11/07/2019 00:19 Patient: [...] rce(s) Supporting Document(s) ID Date Data Source [id number] 11/07/2019 12:19:00 AM EDT [facility] 1 Medication Administration Record [facility] Emergency Department [address] [place] [address] Phone #: ext- [phone] 11/07/2019 00:19 Patient: BRUNA LEE Sex: F : 1985 Age: 34yWeight: 78.9 kgHeight/Length: 60 inBMI: 34ALLERGIES: Penicillins, Sulfa Antibiotics Date/Time Medication Administered Medication OrderedStart IV NS NS IV 1000 mL Bolus: : Bolus [id number] 11/07/2019 Dose: IV Fluids mL (X1)Meme Maldonado R.N. Rate: 999 mL/hr---- Dispensed: 1000 mL bagStop Site: #1 left wrist03:55 11/07/2019Mara Gonzalez R.N.Given ZOFRAN [IVP] (ONDANSETRON HCL) Zofran 4 mg IVP X 1 dose: 4 mg02:22 11/07/2019 Dose: 4 mg IVP (NOW x1)Meme Maldonado R.N. Site: #1 left wrist Name Value Range Interpretation Code Description Data [place] rce(s) Supporting Document(s) ID Date Data Source [id number] 11/07/2019 12:19:00 AM EDT [facility] 1 General Instructions [facility] Emergency Department [address] [place] [address] Phone #: ext- [phone] 11/07/2019 00:19 Patient: [...] to plan of care. 2 General Instructions [facility] Emergency Department [address] [place] [address] Phone #: ext- [phone] 11/07/2019 00:19 Patient: [...] Tiredness Inability to sleep 3 General Instructions [facility] Emergency Department [address] [place] [address] Phone #: ext- [phone] 11/07/2019 00:19 Patient: BRUNA LEE Sex: F [...] help you manage stress. 4 General Instructions [facility] Emergency Department [address] [place] [address] Phone #: ext- [phone] 11/07/2019 00:19 Patient: [...] relieved by rest and mild pain reliever [id number] [employer]. [address] [place] [address], [place] [address]. All rights reserved. This information is not intended as asubstitute for professional medical care. Always follow your healthcare professional's instructions. You have been given the following additional information: Anxiety Reaction(Electronically signed by Evonne Hagen M.D. 11/07/2019 05:23) Name Value Range Interpretation Code Description Data [place] rce(s) Supporting Document(s) ID Date Data Source [id number] 11/07/2019 12:19:00 AM EDT [facility] 1 Clinical Report - Nurses [facility] Emergency Department [address] [place] [address] Phone #: ext- [phone] 11/07/2019 00:19 Patient: BRUNA LEE Sex: F : 1985 Age: 34yTRIAGEHistorian: EMS and patient.Triage time: 00:24 11/07/2019.Chief Complaint: NAUSEA and ("face swelling").Onset. (states that it has been going on all day.). ( states that she has been sleeping a lot and used Molly2 days ago. 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 --00:27 11/07/19 Meme [...] last month. 2 Clinical Report - Nurses [facility] Emergency Department [address] [place] [address] Phone #: ext- [phone] 11/07/2019 00:19 Patient: [...] wrists and OD pills. Was [facility] 3 wks. Last admit 2017. Sees a [...] medication. Verbalizes understanding. --02:11/07/19 Meme Maldonado R.N. 02:11/07/2019 Started bag #1 1000 mL IV Fluids IV NS; at 999 mL/hr via site #1 via IV pump. Allergies 3 Clinical Report - Nurses [facility] Emergency Department [address] [place] [address] Phone #: [phone] ext- [phone] 11/07/2019 00:19 Patient: BRUNA LEE Sex: F [...] patient is calm and resting quietly. ( [place] provided. Reassurance given to pt. Lights dimmed. Call light at hand.). --02:28 11/07/19 Meme Maldonado R.N. 03:55 11/07/2019 IV Fluids IV NS via IV site #1 Discontinued: infused. T otal amount infused: 1000 mL. IV patency established. IV site checked: no pain, redness, or swelling. IV flushed thoroughly. --04:20 11/07/19 Mara Gonzalez R.N. 04:11/07/2019 Site #1 removed upon discharge. Pressure dressing applied. --04:19 11/07/19 Mara Gonzalez R.N.DISPOSITION / DISCHARGE Departure time: 04:18 11/07/2019. Condition at departure: improved. Discharge instructions provided and reviewed with the patient. Patient verbalized understanding. Written instructions provided in Romanian. The patient was discharged by the physician. 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 2 Clinical Report - Physicians/Mid Levels [facility] Emergency Department [address] [place] [address] Phone #: ext- [phone] 11/07/2019 00:19 Patient: [...] saturation: 98%. Temp: 98.1 F.Pain level now: 12/05. Have been reviewed. Oxygen saturation normal.Appearance: Alert. [...] (Reference) 3 Clinical Report - Physicians/Mid Levels [facility] Emergency Department [address] [place] [address] Phone #: ext- [phone] 11/07/2019 00:19 Patient: [...] Male GFR Interprentation 20-49 yrs >60 mL/min Wvffcn78-51 yrs >56 mL/min Normal 60- 69 yrs >49 mL/min Normal 70-79yrs>42 mL/min Normal 80 and above >35 mL/min Normal Female GFRInterpretation 20-39 yrs >60 mL/min Normal 40-49 yrs >58 mL/minNormal 50-59 yrs >51 mL/min Normal 60-69 yrs >45 mL/min Normal 4 Clinical Report - Physicians/Mid Levels [facility] Emergency Department [address] [place] [address] Phone #: ext- [phone] 11/07/2019 00:19 Patient: BRUNA LEE Sex: F : 1985 Age: 92a79-13 yrs >39 mL/min Normal 80 and above >32 mL/min NormalBeta-HCG, Qual Serum: (JENN: 11/07/2019 02:15) ( MsgRcvd 11/07/2019 03:20) Final results Test Result Flag Units (Reference) HCG SERUM QUAL NEGATIVE (NORMAL: NEGAT HCG SERUM QL REENTER NEGATIVE (NORMAL: NEGAT { KIT LOT # [id number] ){ KIT EXP [id number] ){ PROCEDURAL CONTROL VALID)CPK: (JENN: 11/07/2019 02:15) [...] PRESUMPTIVE POSITIVE CONFIRMATION WILL BE PERFORMED AT [facility].Urinalysis: (JENN: 11/07/2019 02:00) ( NygRcvd 11/07/2019 02:28) Final results Test Result Flag [...] Indicate 5 Clinical Report - Physicians/Mid Levels [facility] Emergency Department [address] [place] [address] Phone #: ext- [phone] 11/07/2019 00:19 Patient: BRUNA LEE Sex: F [...] was requested by: Evonne Hagen Reference #: [id number] Others' Prescriptions Patient Name: Bruna LeeBirth Date: 1985 Address: [address] [place], [place] [address]Sex: Female Rx Written Rx Dispensed Drug Quantity Days Supply Prescriber Name Payment Method Dispenser 10/28/2019 10/28/2019 buprenorphine-naloxone 8-2 mg sl film 56 28 Jose J Mao MD Medicaid [facility] 09/30/2019 09/30/2019 buprenorphine-naloxone 8-2 mg sl film 56 28 MoJose J dumont MD Medicaid [facility] 08/28/2019 08/28/2019 buprenorphine-naloxone 8-2 mg sl film 56 28 MoJose J dumont MD Medicaid [facility] 07/23/2019 07/29/2019 buprenorphine-naloxone 8-2 mg sl film 56 28 MoJose J dumont MD Medicaid [facility] 06/27/2019 06/27/2019 buprenorphine-naloxone 8-2 mg sl film 56 28 MoJose J dumont MD Medicaid [facility] 05/29/2019 05/30/2019 buprenorphine-naloxone 8-2 mg sl film 56 28 MoJose J dumont MD Medicaid [facility] 05/01/2019 05/01/2019 buprenorphine-naloxone 8-2 mg sl film 56 28 MoJose J dumont MD Medicaid [facility] 04/03/2019 04/04/2019 buprenorphine-naloxone 8-2 mg sl film 56 28 Moehs Jose J Bundy MD Medicaid [facility] 03/06/2019 03/06/2019 buprenorphine-naloxone 8-2 mg sl film 56 28 Moehs Jose J Bundy MD Medicaid [facility] 02/06/2019 02/06/2019 suboxone 12 mg-3 mg sl film 28 28 Moehs Jose J Bundy MD Medicaid [facility] 01/08/2019 01/08/2019 suboxone 12 mg-3 mg sl film 28 28 Moehs Jose J Bundy MD Medicaid [facility] 12/10/2018 12/10/2018 suboxone 8 mg-2 mg sl film 56 28 Moehs, Jose J Bundy MD Medicaid [facility] 11/12/2018 11/12/2018 suboxone 8 mg-2 mg sl film 56 28 Moehs Jose J Bundy MD Medicaid [facility] * - Drugs marked with an asterisk are compound drugs. If the compound drug is made up of more than one controlled substance, then each controlled substance will be a separate row in the table. 6 Clinical Report - Physicians/Mid Levels [facility] Emergency Department [address] [place] [address] Phone #: ext- [phone] 11/07/2019 00:19 Patient: [...] Oral. 7 Clinical Report - Physicians/Mid Levels [facility] Emergency Department [address] [place] [address] Phone #: ext- [phone] 11/07/2019 00:19 [id number] Sex: F : 1985 Age: 34y RisperDAL [...] rce(s) Supporting Document(s) ID Date Data Source [id number] 11/07/2019 03:20:00 AM EDT [facility] Name Value Range Interpretation Code Description Data [place] rce(s) Supporting Document(s) HCG SERUM QUAL NEGATIVE NORMAL: NEGATIVE [facility] HCG SERUM QL REENTER NEGATIVE NORMAL: NEGATIVE [facility] { KIT LOT # [id number] ){ KIT EXP DATE 12-08-20 ){ PROCEDURAL CONTROL VALID ) ID Date Data Source [id number] 11/07/2019 03:15:00 AM EDT [facility] Name Value Range Interpretation Code Description Data [place] rce(s) Supporting Document(s) Creatine kinase [Enzymatic activity/volume] in Serum or Plasma 3 13 U/L 30 - 170 H [facility] ID Date Data Source [id number] 11/07/2019 03:14:00 AM T [facility] Name Value Range Interpretation Code Description Data [place] rce(s) Supporting Document(s) COMPREHENSIVE METABOLIC PANEL [facility] COMPREHENSIVE METABOLIC PANEL Sodium [Moles/volume] in Serum or Plasma 140 mEq/L 134 - 153 [facility] Potassium [Moles/volume] in Serum or Plasma 3.8 mEq/L 3.6 - 5.0 [facility] Chloride [Moles/volume] in Serum or Plasma 100 mEq/L 98 - 107 [facility] Carbon dioxide, total [Moles/volume] in Serum or Plasma 30 MEQ/L 22 - 30 [facility] Glucose [Mass/volume] in Serum or Plasma 98 MG/DL 65 - 110 [facility] BUN 14 MG/DL 7 - [facility] Creat[facility] [Mass/volume] in Serum or Plasma 0.7 MG/DL 0.7 - 1.5 [facility] BUN/CREAT 20 8 - 27 [facility] al Protein [Mass/volume] in Serum or Plasma 5.9 G/DL 6.3 - 8.2 L [facility] Albumin [Mass/volume] in Serum or Plasma 3.6 G/DL 3.9 - 5.0 L [facility] Globulin [Mass/volume] in Serum by calculation 2.3 GM/DL 2.4 - 3.2 L [facility] A/G RATIO 1.6 0.8 - 2.0 [facility] Calcium [Mass/volume] in Serum or Plasma 9.2 MG/DL 8.4 - 10.2 [facility] Bilirubin.total [Mass/volume] in Serum or Plasma <0.7 MG/DL 0.2 - 1.3 [facility] Alkaline phosphatase [Enzymatic activity/volume] in Serum or Plasma 62 U/L 38 - 126 [facility] Aspartate aminotransferase [Enzymatic activity/volume] in Serum or Plasma 302 U/L 5 - 40 H [facility] Alanine aminotransferase [Enzymatic activity/volume] in Seru m or Plasma 125 U/L 7 - 56 H [facility] Anion gap 3 in Serum or Plasma 10.0 mmol/L 8.0 - 16.0 [facility] AGE 34 yrs [facility] al NON-AA GFR >60 mL/min [facility] ital AFR AMER GFR >60 mL/min [facility] Ho spital Male GFR In terprentation [...] >32 mL/min Normal ID Date Data Source [id number] 11/07/2019 02:27:00 AM EDT [facility] Name Value Range Interpretation Code Description Data [place] rce(s) Supporting Document(s) CBC W/AUTOMATED DIFF [facility] COMPLETE BLOOD COUNT Leukocytes [#/volume] in Blood by Automated count 8.3 10^3/uL 4.2 - 1 1.0 [facility] Erythrocytes [#/volume] in Blood by Automated count 3.87 10^6/uL 4. 20 - 5.40 L [facility] Hemoglobin [Mass/volume] in Blood 11.6 g/dL 12.0 - 16.0 L [facility] Hematocrit [Volume Fraction] of Blood by Automated count 36.0 % 3 7.0 - 47.0 L [facility] Erythrocyte mean corpuscular volume [Entitic volume] by Auto mated count 93.0 fL 81.0 - 101 [facility] Erythrocyte mean corpuscular hemoglobin [Entitic mass] by Automated count 30.0 pg 27.0 - 34.0 [facility] Erythrocyte mean corpuscular hemoglobin concentration [Mass/volume] by Automated count 32.2 g/dL 31.0 - 36.0 [facility] Erythrocyte distribution width [Ratio] by Automated count 13.3 % 11.5 - 14.5 [facility] Platelets [#/volume] in Blood by Automated count 271 10^3/uL 150 - 45 0 [facility] Platelet mean volume [Entitic volume] in Blood by Automated count 9.5 fL 7.4 - 10.4 [facility] Neutrophils/100 leukocytes in Blood by Automated count 82.6 % 37. 0 - 80.0 H [facility] Lymphocytes/100 leukocytes in Blood by Manual count 14.3 % 25.0 - 40.0 L [facility] Monocytes/100 leukocytes in Blood by Automated count 1.6 % 3.0 - 8.0 L [facility] Eosinophils/100 leukocytes in Blood by Automated count 0.8 % 0.0 - 7.0 [facility] Basophils/100 leukocytes in Blood by Automated count 0.2 % 0.0 - 2.5 [facility] %IG 0.5 % 0.0 - 0.0 [facility] %NRBC 0.0 % 0.0 - 0.0 [facility] al Neutrophils [#/volume] in Blood by Automated count 6.85 10^3/uL 2.00 - 6.90 [facility] Lymphocytes [#/volume] in Blood by Automated count 1.19 10^3/uL 0.60 - 3.40 [facility] Monocytes [#/volume] in Blood by Automated count 0.13 10^3/uL 0.00 - 0.90 [facility] Eosinophils [#/volume] in Blood by Automated count 0.07 10^3/uL 0.00 - 0.70 [facility] Basophils [#/volume] in Blood by Automated count 0.02 10^3/uL 0.00 - 0.20 [facility] #IG 0.04 10^3/uL 0.00 - 0.10 [facility] #NRBC 0.00 10^3/uL 0.00 - 0.00 [facility] ospital MANUAL DIFF NOT INDICATED [facility] RBC MORPH NOT INDICATED [facility] spital ID Date Data Source [id number] 11/07/2019 03:14:00 AM EDT [facility] Name Value Range Interpretation Code Description Data [place] rce(s) Supporting Document(s) DRUG SCREEN URINE [facility] URINE DRUG SCREEN Amphetamine [Presence] in Urine by Screen method PRESUMP POS LISANDRA L: NEGATIVE [facility] BARBITURATES NEGATIVE NORMAL: NEGATIVE [facility] BENZO NEGATIVE NORMAL: NEGATIVE [facility] COCAINE NEGATIVE NORMAL: NEGATIVE [facility] Tetrahydrocannabinol [Presence] in Urine NEGATIVE NORMAL: NEGATIVE [facility] OPIATES NEGATIVE NORMAL: NEGATIVE [facility] Phencyclidine [Presence] in Urine by Screen method NEGATIVE NOR MAL: NEGATIVE [facility] \\BLDo\\URINE DRUG SCR EEN INTERPRETATION\\BLDx\\ THE CUTOFFF LEVELS FOR DETECTION ARE FOLLOWS: AMPHETAMINES 1000 ng/ml BARBITUARATES 200 ng/ml BENZODIAZEPINES 100 ng/ml THC 50 ng/ml PHENCYCLIDINE 25 ng/ml OPIATES 300 ng/ml COCAINE 300 ng/ml ALL POSITIVES ARE CONSIDERED PRESUMPTIVE POSITIVE CONFIRMATION WILL BE PERFORMED AT PHYSICIAN REQUEST. ID Date Data Source [id number] 11/07/2019 02:27:00 AM EDT [facility] Name Value Range Interpretation Code Description Data [place] rce(s) Supporting Document(s) URINALYSIS [facility]ames URINALYSIS SOURCE R [facility] COLOR yellow NORMAL: Yellow [facility] CLARITY clear NORMAL: Clear [facility] Specific gravity of Urine by Test strip 1.020 1.001 - 1.030 [facility] pH 6 5 - 9 [facility] Glucose [Mass/volume] in Urine by Test strip NORM NORMAL: Negat [facility] Bilirubin.total [Presence] in Urine by Test strip NEG NORMAL: Negative [facility] Ketones [Presence] in Urine by Test strip NEG NORMAL: Negative [facility] Protein [Mass/volume] in Urine by Test strip NEG NORMAL: Negat [facility] Nitrite [Presence] in Urine by Test strip NEG NORMAL: Negative [facility] BLOOD NEG NORMAL: Negative [facility] Leukocyte esterase [Presence] in Urine by Test strip NEG LISANDRA L: Negative [facility] Urobilinogen [Mass/volume] in Urine by Test strip 1 less kenna n 1.0 mg/dL [facility] MICROSCOPIC Not Indicate [facility] ID Date Data Source [id number] 10/30/2019 10:27:00 AM EDT [facility] Name Value Range Interpretation Code Description Data [place] rce(s) Supporting Document(s) BG FASTING 132 mg/dL 70-100 H [facility] TSH 0.526 microintl units/mL 0.358-3.740 N [facility] ID Date Data Source [id number] 10/30/2019 10:27:00 AM EDT [facility] Name Value Range Interpretation Code Description Data [place] rce(s) Supporting Document(s) HCT 37.6 % 36.0-47.0 N [facility] HGB 11.8 g/dL 12.0-15.5 L [facility] MCH 31.4 G/DL pg 32.0-36.5 L [facility] MCHC 29.9 PG % 27.0-33.0 N [facility] PLATELETS 209 10 10*3/mm3 150-450 N [facility] RBC 3.94 10 10*6/mm3 4.00-5.40 L [facility] RDW 12.6 % 11.5-14.5 N [facility] WBC TOTAL 4.5 4.0-10.0 N [facility] ID Date Data Source [id number] 10/13/2019 03:25:00 PM EDT [facility] Name Value Range Interpretation Code Description Data [place] rce(s) Supporting Document(s) HCT 40.7 % 36.0-47.0 N [facility] HGB 13.3 g/dL 12.0-15.5 N [facility] MCH 32.7 G/DL pg 32.0-36.5 [facility] MCHC 30.4 PG % 27.0-33.0 N [facility] PLATELETS 288 10 10*3/mm3 150-450 N [facility] RBC 4.37 10 10*6/mm3 4.00-5.40 N [facility] RDW 12.4 % 11.5-14.5 [facility] WBC TOTAL 8.7 4.0-10.0 N [facility] ID Date Data Source [id number] 10/09/2019 02:09:00 AM EDT [facility] 1 OrderSheet [facility] Emergency Department [address] [place] [address] Phone #: ext- [phone] 10/09/2019 02:08 Patient: [...] 03:29 10/09/2019 Ack'd: 03:34 Meme 03:39 Meme BlairPO X1 dose: 800 Evonne Hagen.Xin Maldonado R.N.mg (NOW x1) Jeremie;GENERAL ORDERSOrder Description Priority Entered Acknowledged Initialed[Electronically signed by Evonne Hagen M.D. (03:51 10/09/2019)][Electronically signed by Meme Damon R.N. (07:29 10/09/2019)][Electronically locked by Meme Damon R.N. (07:10/09/2019)] Name Value Range Interpretation Code Description Data [place] rce(s) Supporting Document(s) ID Date Data Source [id number] 10/09/2019 02:09:00 AM EDT [facility] 1 Medication Reconciliation Report [facility] Emergency Department [address] [place] [address] Phone #: ext- [phone] 10/09/2019 02:08 Patient: [...] rce(s) Supporting Document(s) ID Date Data Source [id number] 10/09/2019 02:09:00 AM EDT [facility] 1 Medication Administration Record [facility] Emergency Department [address] [place] [address] Phone #: ext- [phone] 10/09/2019 02:08 Patient: BRUNA LEE Sex: F : 1985 Age: 34yWeight: 81.1 kgHeight/Length: 60 inBMI: 34.9ALLERGIES: Penicillins, Sulfa Antibiotics Date/Time Medication Administered Medication OrderedGiven IBUPROFEN [PO] Ibuprofen 800 mg PO X1 dose: 42079:39 10/09/2019 Dose: 800 mg Tablets PO mg (NOW x1)Meme Maldonado R.N. Name Value Range Interpretation Code Description Data [place] rce(s) Supporting Document(s) ID Date Data Source [id number] 10/09/2019 02:09:00 AM EDT [facility] 1 General Instructions [facility] Emergency Department [address] [place] [address] Phone #: ext- [phone] 10/09/2019 02:08 Patient: [...] INFORMATIONViral Pharyngitis (Sore Throat) 2 General Instructions [facility] Emergency Department [address] [place] [address] Phone #: ext- [phone] 10/09/2019 02:08 Patient: [...] glass of warm water. 3 General Instructions [facility] Emergency Department [address] [place] [address] Phone #: ext- [phone] 10/09/2019 02:08 Patient: [...] breathing or noisy breathing 4 General Instructions [facility] Emergency Department [address] [place] [address] Phone #: ext- [phone] 10/09/2019 02:08 Patient: BRUNA LEE Sex: F : 1985 Age: 34y Muffled voice New rash Other symptoms are getting worse [id number] [employer]. [address] [place] [address]. All rights reserved. This information is not intended as asubstitute for professional medical care. Always follow your healthcare professional's instructions. You have been given the following additional information: Pharyngitis, Viral(Electronically signed by Evonne Hagen M.D. 10/09/2019 03:51) Name Value Range Interpretation Code Description Data [place] rce(s) Supporting Document(s) ID Date Data Source [id number] 10/09/2019 02:09:00 AM EDT [facility] 1 Clinical Report - Nurses [facility] Emergency Department [address] [place] [address] Phone #: ext- [phone] 10/09/2019 02:08 Patient: BRUNA LEE Sex: F : 1985 Age: 34yTRIAGEHistorian: EMS and patient.Triage time: 02:08 10/09/2019.Chief Complaint: SORE THROAT.This started just prior to arrival. 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 Sepsis Screen negative. No suspected orconfirmed signs of infection present. --02:14 10/09/19 Meme Maldonado R.N.02:11 10/09/19. BP: 130/86. MAP: 100. HR: 105. RR: 18. O2 saturation: 100%. Temp: 98.5 F. Pain levelnow: 12/05. --02:14 10/09/19 Meme Maldonado R.N.Treatment LAMINATING MACHINE TENDER:(Seen at [facility] for this issue within the last few days, states that they could not figure out what was wrongwith her.). --02:28 10/09/19 Meme Maldonado R.N.Acuity: LEVEL 4.02:11 10/09/19. --07:29 10/09/19 Meme Maldonado R.N.Weight: 81.1 kg measured. Height/Length: 60 inches Per Patient. BMI: 34.9. --02:08 10/09/19 Meme Jordan R.N.MedicationsRisperDAL Oral. --02:10/09/19 Meme Maldonado R.N. Keppra Oral. --02:15 10/09/19 Meme Maldonado R.N. Strattera Oral. --02:15 10/09/19 Meme Maldonado R.N. Amitriptyline HCl Oral. --02:15 10/09/19 Meme Maldonado R.N. Gabapentin Oral. --02:15 10/09/19 Meme Maldonado R.N. Stomach pill, name unknown. --02:16 10/09/19 Meme Maldonado R.N. Suboxone Sublingual (Film 8-2 mg), daily. --02:21 10/09/19 Meme Maldonado R.N.AllergiesPenicillins.(hives) 2 Clinical Report - Nurses [facility] Emergency Department [address] [place] [address] Phone #: ext- [phone] 10/09/2019 02:08 Patient: [...] Instructed not to get up without assistance. --02:10/09/19 Meme Maldonado R.N.PHYSICAL ASSESSMENTTo room via stretcher.GENERAL / NEURO / PSYCH: ( pt slurring speech slightly).HEENT: Sinus tenderness present. Hoarse voice. No nasal discharge. ( States that she thinks there pablo bug in her throat.). Dental decay. 3 Clinical Report - Nurses [facility] Emergency Department [address] [place] [address] Phone #: ext- [phone] 10/09/2019 02:08 Patient: BRNUA LEE Sex: F : 1985 Age: 34y RESPIRATORY: Respirations not labored. No cough. SKIN: ( Multiple bruises, scars and various stages of healing spots on her upper and lower extremities.). --02:10/09/19 Meme Maldonado R.N.NURSING PROGRESS NOTESCall light placed in reach. Bed placed in lowest position. Brakes of bed on. --02:10/09/19 Meme Jordan R.N. 03:39 10/09/2019 Ibuprofen PO Tablets 800 mg given. Allergies verified and confirmed 5 rights. Information reviewed with patient including reason for taking this medication. Verbalizes understanding. --03:39 10/09/19 Meme Maldonado R.N.DISPOSITION / DISCHARGE Departure time: 03:44 10/09/2019. Condition at departure: stable. No learning barriers present. Patient verbalized understanding. Written instructions provided in Romanian. The patient was discharged by the physician. [...] rce(s) Supporting Document(s) ID Date Data Source [id number] 10/09/2019 02:09:00 AM EDT [facility] 1 Clinical Report - Physicians/Mid Levels [facility] Emergency Department [address] [place] [address] Phone #: ext- [phone] 10/09/2019 02:08 [id number] Sex: F : 1985 Age: 34y Time [...] (per EMS, pt is well known to [facility] ER for multiple ER visits for multiple somatic and psychiatric complaints; tonight, she complains of sore throat, hoarse voice, bugs on her skin, etc.; pt has therapist in [place]). Similar symptoms previously. Patient has had similar [...] Hernia Repair. Medications: 2 Clinical Report - Physicians/[facility] Emergency Department [address] [place] [address] Phone #: ext- [phone] 10/09/2019 02:08 Patient: [...] saturation: 100%. Temp: 98.5F. Pain level now: 10/10. Have been reviewed. Oxygen [...] PROCEDURAL CONTROL VALID ){ KIT LOT # [id number] ){ KIT EXP DATE [id number] )The 3 Clinical Report - Physicians/Mid Levels [facility] Emergency Department [address] [place] [address] Phone #: ext- [phone] 10/09/2019 02:08 Patient: [...] was requested by: Evonne Hagen Reference #: [id number] Others' Prescriptions Patient Name: Bruna LeeBirth Date: 1985 Address: [address] [place] [id number]: Female Rx Written Rx Dispensed Drug Quantity [...] film 56 28 MoJose J hopson MD [facility] 05/01/2019 05/01/2019 buprenorphine-naloxone 8-2 [...] 28 28 Jose J Mao MD Medicaid [facility] 01/08/2019 01/08/2019 suboxone 12 mg-3 mg sl film 28 28 Jose J Mao MD Medicaid [facility] 12/10/2018 12/10/2018 suboxone 8 mg-2 mg sl film 56 28 Jose J Mao MD Medicaid [facility] 4 Clinical Report - Physicians/Mid Levels [facility] Emergency Department [address] [place] [address] Phone #: yif- [phone] 10/09/2019 02:08 Patient: BRUNA LEE Sex: F [...] unknown*. 5 Clinical Report - Physicians/Mid Levels [facility] Emergency Department [address] [place] [address] Phone #: ext- [phone] 10/09/2019 02:08 Patient: BRUAN LEE Sex: F : 1985 Age: 34y [...] rce(s) Supporting Document(s) ID Date Data Source [id number] 10/09/2019 03:02:00 AM EDT [facility] Name Value Range Interpretation Code Description Data [place] rce(s) Supporting Document(s) RAPID STREP NEGATIVE NORMAL: NEGATIVE [facility] RAPID STREP REENTER NEGATIVE NORMAL: NEGATIVE [facility] { PROCEDURAL CONTROL VALID ){ KIT LOT # [id number] ){ KIT EXP DATE 9090329 )The Strep A 2 assay utilizes isothermal [...] basis for treatment. ID Date Data Source [id number] 09/22/2019 02:34:28 PM EDT [facility] Measurements & CalculationsHeight: 61 inches (5 [...] (ER) or urgent care clinic? Yes - [facility] Have you seen another healthcare provider? Yes - [facility] Have you seen a dentist? NoIntake [...] this is different. Sees [facility] for her mental health issues (schizophrenia) and feels that this is going well.HPI performed by: Francesco Ritchie MD, September 22, 2019 2:52 PMTransitions of Care InboundProblem ReviewProblem List was reviewed and/or updated during this visit.Medication Reconciliation & ReviewMedication List was reviewed and/or updated during this visit, including review of any qxuh-mrg-ahugwfl medications, herbal therapies, and/or supplements.Allergy ReviewAllergy List [...] Plan Problems:Added: Hematemesis - cause unknown (ICD-578.0) (QOC30-E26.0) Assessment: Instructions: Currently asymptomatic but worrisome enough to warrant further workup.Avoid NSAIDs and refer to GI.Return to ER if this occurs again.Assessed:Peripheral neuropathy (ICD-356.9) (HSO10-R46.9) Assessment: Instructions: I am not sure where [...] (Critical)Orders:Adult - Ofc Vst, EST, Level III [CPT-33325] Gastroenterology Consult [CPT-07449] Medications:GABAPENTIN 400 MG ORAL CAPSULE (GABAPENTIN) take one tablet by mouth three times daily as needed #90[Capsule] x 0 Route:ORAL Entered and Authorized by: Francesco Ritchie MD Method used: Electronically to [facility] (retail) [address] [place] [address] Note to Pharmacy: Route: ORAL; Indications: PERIPHERAL NEUROPATHY;BILATERAL CARPAL TUNNEL SYNDROME RxID: [id number] 1000 MG ORAL TABLET (LEVETIRACETAM) 1 pill po bid #60[Tablet] x 0 Route:ORAL Entered and Authorized by: Francesco Ritchie MD Method used: Electronically to [facility] (retail) [address] [place] [address] Note to Pharmacy: Route: ORAL; RxID: [id number] SUCCINATE 50 MG ORAL TABLET (SUMATRIPTAN SUCCINATE) take one tab po at the onset of headache. may repeat dose x one if no releif after two hours. #15[Tablet] x 0 Entered and Authorized by: Francesco Ritchie MD Method used: Electronically to [facility] (retail) [address] [place] [address] RxID: [id number] OMEPRAZOLE 20 MG ORAL TABLET DELAYED RELEASE (OMEPRAZOLE) One tablet by mouth every day #30[Tablet] x 2 Route:ORAL Entered and Authorized by: Francesco Ritchie MD Method used: Electronically to [facility] (retail) [address] [place] [address] Note to Pharmacy: Route: ORAL; RxID: [id number] DOXYCYCLINE MONOHYDRATE 100 MG ORAL TABLET (DOXYCYCLINE MONOHYDRATE) take one tablet by mouth twice daily x 5 days #10[Tablet] x 0 Route:ORAL Entered by: Demetria Elliott MA Authorized by: Mavis Batista MANAGER OF EXH[employer]ITIONS AND COLLECTIONS Method used: Electronically to [facility] (retail) [address] [place] [address] RxID: [id number] signed by Francesco Ritchie MD on 09/22/2019 at 5:42 PM Name Value Range Interpretation Code Description Data [place] rce(s) Supporting Document(s) ID Date Data Source [id number] 09/10/2019 10:45:00 PM EDT [facility] Name Value Range Interpretation Code Description Data [place] rce(s) Supporting Document(s) BG FASTING 96 mg/dL 70-100 N [facility] ID Date Data Source [id number] 09/10/2019 10:45:00 PM EDT [facility] Name Value Range Interpretation Code Description Data [place] rce(s) Supporting Document(s) HCT 37.4 % 36.0-47.0 N [facility] HGB 12.1 g/dL 12.0-15.5 N [facility] MCH 32.4 G/DL pg 32.0-36.5 [facility] M[facility]C 30.2 PG % 27.0-33.0 [facility] PLATELETS 244 10 10*3/mm3 150-450 N [facility] RBC 4.01 10 10*6/mm3 4.00-5.40 N [facility] RDW 12.8 % 11.5-14.5 [facility] WBC TOTAL 4.9 4.0-10.0 N [facility] ID Date Data Source [id number] 05/20/2019 11:42:55 AM EDT [facility] Measurements & CalculationsHeight: 61 inches (5 [...] you seen another healthcare provider? Yes - [facility] Have you seen a dentist? NoRate [...] during this visit, including review of any mfwk-myd-bzymyrg medications, herbal therapies, and/or supplements.Allergy ReviewAllergy List [...] Problems:Added: Phlebitis and thrombophlebitis of unspecified site (BVE17-A49.9): right AC and right tibia Assessment: Instructions: May continue warm compresses 3-4 times daily as needed. Please try to keep extremities elevated. We have sent a prescription to your pharmacy today. Please take medication as prescribed. Please report any major side effects.Phlebitis and thrombophlebitis of unspecified site (CAM55-G63.9): right AC and right tibia Assessment: right foot and right forearmAssessed:Tobacco use (ICD-305.1) (KLP61-G63.0) Assessment: Instructions: Please continue to try to quit smoking.Health Screening (ICD-V70.0) (SZW54-J94.9) Assessment: Instructions: Fasting labs ordered for you today. Please return prior to your next visit to have labs drawn. Please fast for 8-10 hours prior.Substance abuse (ICD-305.90) (IHN13-P07.10) Assessment: Instructions: Please try to avoid the [...] (Critical)BACTRIM (Critical)* SULFA ANTIBIOTICS (Critical)Orders:COMP METABOLIC PANEL [CPT-12522] CBC W/DIFF [CPT- 66293] HgBA1c [CPT-55301] LIPID PANEL [CPT-13975] TSH [CPT-41278] T-4 free [CPT- 36415] Vitamin D 250H Unspecified [CPT-66273] URINALYSIS [CPT-47489] VITAMIN B- 12 [CPT-29687] Folate (Folic Acid Serum) [CPT-05499] IRON [CPT-72991] Adult - Ofc Vst, EST, Level III [CPT-71709] Follow-Up Return to clinic: 2-3 weeks for follow up Additional Follow-Up: If symptoms worsen, please return to clinic or the ERClinical Visit Summary CompletedMedications:DOXYCYCLINE MONOHYDRATE 100 MG ORAL TABLET (DOXYCYCLINE MONOHYDRATE) take one tablet by mouth twice daily x 5 days #10[Tablet] x 0 Route:ORAL Entered and Authorized by: Mavis DIEGO Method used: Electronically to [facility] (retail) [address] [place] [address] Note to Pharmacy: Route: ORAL; Indications: PHLEBITIS AND THROMBOPHLEBITIS OF UNSPECIFIED SITE RxID: [id number] signed by Mavis DIEGO on 05/24/2019 at 11:37 PM ____ Name Value Range Interpretation Code Description Data [place] rce(s) Supporting Document(s) Procedure Social History Code Duration Value Status Description Data Source(s ) Smoking 03/30/2020 12:00:00 AM EST Current Smoker completed Curre nt Smoker eCW1 ([facility]) Smoking 03/30/2020 12:00:00 AM EST Current Smoker completed Curre nt Smoker eCW1 ([facility]) Smoking 03/30/2020 12:00:00 AM EST Current Smoker completed Curre nt Smoker eCW1 ([facility]) Smoking 03/01/2020 12:00:00 AM EST Current Smoker completed Curre nt Smoker eCW1 ([facility]) Smoking 03/01/2020 12:00:00 AM EST Current Smoker completed Curre nt Smoker eCW1 ([facility]) Smoking 03/01/2020 12:00:00 AM EST Current Smoker completed Curre nt Smoker eCW1 ([facility]) Smoking 02/18/2020 12:00:00 AM EST Current Smoker completed Curre nt Smoker eCW1 ([facility]) Smoking 12/24/2019 12:00:00 AM EDT Current Smoker completed Curre nt Smoker eCW1 ([facility]) Smoking 12/24/2019 12:00:00 AM EDT Current Smoker completed Curre nt Smoker eCW1 ([facility]) Smoking 12/24/2019 12:00:00 AM EDT Current Smoker completed Curre nt Smoker eCW1 ([facility]) Smoking 12/24/2019 12:00:00 AM EDT Current Smoker completed Curre nt Smoker [facility]CW1 [facility] [facility] Smoking 12/24/2019 12:00:00 AM EDT Current Smoker completed Curre nt Smoker eCW1 ([facility]) Smoking 12/24/2019 12:00:00 AM EDT Current Smoker completed Curre nt Smoker eCW1 ([facility]) Smoking 12/24/2019 12:00:00 AM EDT Current Smoker completed Curre nt Smoker eCW1 ([facility]) Smoking 10/31/2019 12:00:00 AM EDT Current Smoker completed Curre nt Smoker eCW1 ([facility]) Smoking 10/31/2019 12:00:00 AM EDT Current Smoker completed Curre nt Smoker eCW1 ([facility]) Smoking 10/31/2019 12:00:00 AM EDT Current Smoker completed Curre nt Smoker eCW1 ([facility]) Vital Signs ID Date Data Source UNK Name Value Range Interpretation Code Description Data Source(s) Oxygen saturation in Arterial blood by Pulse oximetry 98 % 98 % eCW1 ([facility]) Respiratory rate 18 /min 18 /min eCW1 ([facility]) Heart rate 119 /min 119 /min eCW1 ([facility]) Body mass index (BMI) [Ratio] 35.74 kg/m2 35.74 kg/m2 eCW1 ([facility]) Body weight 183.0 [lb_av] 183.0 [lb_av] eCW1 ([facility]) Body height 60.0 [in_i] 60.0 [in_i] eCW1 ([facility]) Oxygen saturation in Arterial blood by Pulse oximetry 99 % 99 % eCW1 ([facility]) Respiratory rate 18 /min 18 /min eCW1 ([facility]) Heart rate 93 /min 93 /min eCW1 ([facility]) Body mass index (BMI) [Ratio] 35.27 kg/m2 35.27 kg/m2 eCW1 ([facility]) Body weight 180.6 [lb_av] 180.6 [lb_av] eCW1 ([facility]) Body height 60 [in_i] 60 [in_i] eCW1 ([facility]) Oxygen saturation in Arterial blood by Pulse oximetry 97 % 97 % eCW1 ([facility]) Respiratory rate 18 /min 18 /min eCW1 ([facility]) Heart rate 89 /min 89 /min eCW1 ([facility]) Body mass index (BMI) [Ratio] 36.48 kg/m2 36.48 kg/m2 eCW1 ([facility]) Body weight 186.8 [lb_av] 186.8 [lb_av] eCW1 ([facility]) Body height 60 [in_i] 60 [in_i] eCW1 ([facility]) Body height 60 [in_i] 60 [in_i] eCW1 ([facility]) Oxygen saturation in Arterial blood by Pulse oximetry 98 % 98 % eCW1 ([facility]) Respiratory rate 18 /min 18 /min eCW1 ([facility]) Heart rate 86 /min 86 /min eCW1 ([facility]) Body temperature 98.0 [degF] 98.0 [degF] eCW1 ( [facility]) Body mass index (BMI) [Ratio] 32.10 kg/m2 32.10 kg/m2 eCW1 ([facility]) Body weight 164.4 [lb_av] 164.4 [lb_av] eCW1 ([facility]) Oxygen saturation in Arterial blood by Pulse oximetry 99 % 99 % eCW1 ([facility]) Respiratory rate 18 /min 18 /min eCW1 ([facility]) Heart rate 100 /min 100 /min eCW1 ([facility]) Body temperature 98.7 [degF] 98.7 [degF] eCW1 ( [facility]) Body mass index (BMI) [Ratio] 30.70 kg/m2 30.70 kg/m2 eCW1 ([facility]) Body weight 157.2 [lb_av] 157.2 [lb_av] eCW1 ([facility]) Body height 60 [in_i] 60 [in_i] eCW1 ([facility]) ID Date Data Source [id number] 12/26/2019 01:56:00 PM EDT [facility] Name Value Range Interpretation Code Description Data Source(s) WEIGHT 72.3 kilos 72.3 kilos [facility] HEIGHT 152.[address] [facility] WEIGHT 75 kilos 75 kilos [facility] HEIGHT 152.[address] [facility] ID Date Data Source [id number] 12/10/2019 06:07:00 AM EDT [facility] Name Value Range Interpretation Code Description Data Source(s) WEIGHT 68 kilos 68 kilos [facility] HEIGHT 152.[address] [facility] WEIGHT 68.4 kilos 68.4 kilos [facility] HEIGHT 152.[address] [facility] ID Date Data Source [id number] 12/08/2019 01:43:00 PM EDT [facility] Name Value Range Interpretation Code Description Data Source(s) WEIGHT 75 kilos 75 kilos [facility] HEIGHT 152.[address] [facility] ID Date Data Source [id number] 12/08/2019 01:43:00 [facility] Value Range Interpretation Code Description Data Source(s) WEIGHT 74 kilos 74 kilos [facility] HEIGHT 160.02 centimeters 160.02 centimeter [facility] Patient Treatment Plan of Care Planned Activity Planned Date Details Description Data Source (s) Doxepin Hydrochloride 25 MG Oral Capsule 03/09/2020 12:00:00 AM EST eCW1 ([facility]) Doxepin Hydrochloride 25 MG Oral Capsule 03/09/2020 12:00:00 AM EST eCW1 ([facility]) Clonidine Hydrochloride 0.2 MG Oral Tablet 12/24/2019 12:00:00 AM E DT eCW1 ([facility]) Clonidine Hydrochloride 0.2 MG Oral Tablet 12/24/2019 12:00:00 AM E DT eCW1 ([facility]) Clonidine Hydrochloride 0.2 MG Oral Tablet 12/24/2019 12:00:00 AM E DT eCW1 ([facility]) Clonidine Hydrochloride 0.2 MG Oral Tablet 12/24/2019 12:00:00 AM E DT eCW1 ([facility]) Clonidine Hydrochloride 0.2 MG Oral Tablet 12/24/2019 12:00:00 AM E DT eCW1 ([facility]) Clonidine Hydrochloride 0.2 MG Oral Tablet 12/24/2019 12:00:00 AM E DT eCW1 ([facility]) lisdexamfetamine dimesylate 50 MG Oral Capsule [Vyvans e] 11/04/2019 12:00:00 AM EDT eCW1 ([facility]) Clonazepam 0.5 MG Oral Tablet 11/04/2019 12:00:00 AM EDT eCW1 ([facility]) Citalopram 20 MG Oral Tablet [Celexa] 11/04/2019 12:00:00 AM EDT eCW1 ([facility]) Risperidone 3 MG Oral Tablet [Risperdal] 07/07/2019 12:00:00 AM EDT eCW1 ([facility]) Risperidone 3 MG Oral Tablet [Risperdal] 07/07/2019 12:00:00 AM EDT eCW1 ([facility]) Risperidone 2 MG Oral Tablet [Risperdal] 07/07/2019 12:00:00 AM EDT eCW1 ([facility]) Risperidone 2 MG Oral Tablet [Risperdal] 07/07/2019 12:00:00 AM EDT eCW1 ([facility]) Risperidone 3 MG Oral Tablet [Risperdal] 07/07/2019 12:00:00 AM EDT eCW1 ([facility])
[2020-04-09] MEDS ORDERED: methylPREDNISolone 125MG 2ML VIAL IV ONE (04:15)
[2020-04-09] MEDS: COMBIVENT RESPIMAT 100-20MCG INHALER 4GM INH SCH ×2 (04:33→04:55)
[2020-04-09] MEDS ORDERED: CHLORASEPTIC SPRAY MT PRN (05:00)
--- NOTE | 2020-04-09 05:00 | REPVR ---
PROCEDURE INFORMATION: Exam: XR Chest, 1 View Exam date and time: 04/09/2020 4:16 AM Age: 34 years old Clinical indication: Cough TECHNIQUE: Imaging protocol: XR of the chest Views: 1 view. COMPARISON: [facility] PORTABLE CHEST X-RAY 01/06/2020 3:33 PM FINDINGS: Lungs: Unremarkable. No consolidation. Pleural spaces: Unremarkable. No pleural effusion. No pneumothorax. Heart/Mediastinum: Unremarkable. No cardiomegaly. Bones/joints: Unremarkable. IMPRESSION: No acute findings. Electronically signed by: Demetria Seymour On 04/09/2020 05:00:27 AM
--- OUTSIDE RECORDS SUMMARY | 2020-04-09 05:07 | CCD ---
Author Author [facility] Organization [facility] Address Unknown Phone Unavailable Care Team Providers Care Weaver [place] Name Role Phone Kori FLORES Unavailable Unavailable [...] Jeremie HOGAN MD Unavailable Unavailable JESICA, @ [facility] Unavailable Unavailable BEHZAD HOGAN MD Unavailable Unavailable Ching, Reginah W Kassidy DOLLYMAN-C Unavailable Unavailabl e Ching, Reginah W Kassidy DOLLYMAN-C Unavailable Unavailabl e Ching, Reginah W Kassidy DOLLYMAN-C Unavailable Unavailabl e Ching, Reginah W Kassidy DOLLYMAN-C Unavailable Unavailabl e Ching, Reginah W Kassidy DOLLYMAN-C Unavailable Unavailabl e Ching, Reginah W Kassidy DOLLYMAN-C Unavailable Unavailabl e Ching, Reginah W Kassidy DOLLYMAN-C Unavailable Unavailabl e Ching, Reginah W Kassidy DOLLYMAN-C Unavailable Unavailabl e Ching, Reginah W Kassidy DOLLYMAN-C Unavailable Unavailabl e Ching, Reginah W Kassidy DOLLYMAN-C Unavailable Unavailabl e Ching, Reginah W Kassidy DOLLYMAN-C Unavailable Unavailabl e Ching, Reginah W Kassidy DOLLYMAN-C Unavailable Unavailabl e Ching, Reginah W Kassidy DOLLYMAN-C Unavailable Unavailabl e Ching, Reginah W Kassidy DOLLYMAN-C Unavailable Unavailabl e Ching, Reginah W Kassidy DOLLYMAN-C Unavailable Unavailabl e Ching, Reginah W Kassidy DOLLYMAN-C Unavailable Unavailabl e Ching, Elijah Yi DOLLYMAN-C Unavailable Unavailabl e Ching, Elijah Yi DOLLYMAN-C Unavailable Unavailabl e Ching, Elijah Yi DOLLYMAN-C Unavailable Unavailabl e Ching, Elijah Yi DOLLYMAN-C Unavailable Unavailabl e Ching, Elijah Yi DOLLYMAN-C Unavailable Unavailabl e Ching, Elijah Yi DOLLYMAN-C Unavailable Unavailabl e Ching, Elijah Yi DOLLYMAN-C Unavailable Unavailabl e Ching, Elijah Yi DOLLYMAN-C Unavailable Unavailabl e Ching, Elijah Yi DOLLYMAN-C Unavailable Unavailabl e Ching, Elijah Yi DOLLYMAN-C Unavailable Unavailabl e Ching, Elijah Yi DOLLYMAN-C Unavailable Unavailabl e Ching, Elijah Yi DOLLYMAN-C Unavailable Unavailabl e Ching, Elijah Yi DOLLYMAN-C Unavailable Unavailabl e Ching, Elijah Yi DOLLYMAN-C Unavailable Unavailabl e Ching, Elijah Yi DOLLYMAN-C Unavailable Unavailabl e Ching, Elijah Yi DOLLYMAN-C Unavailable Unavailabl e Lino Marie MD Unavailable [...] Unavailable FrankLino jasmine MD Unavailable Unavailable Frank, F Femi MD [...] BROWN, L JANE Unavailable Unavailable DESJARLAIS, KAROLYN PROFESSOR OF GRAPHIC DESIGN Unavailable Unavailable DESJARLAIS, KAROLYN PROFESSOR OF GRAPHIC DESIGN Unavailable Unavailable DESJARLAIS, KAROLYN PROFESSOR OF GRAPHIC DESIGN Unavailable Unavailable DESJARLAIS, KAROLYN PROFESSOR OF GRAPHIC DESIGN Unavailable Unavailable DESJARLAIS, KAROLYN PROFESSOR OF GRAPHIC DESIGN Unavailable Unavailable DESJARLAIS, KAROLYN PROFESSOR OF GRAPHIC DESIGN Unavailable Unavailable DESJARLAIS, KAROLYN PROFESSOR OF GRAPHIC DESIGN Unavailable Unavailable DESJARLAIS, KAROLYN PROFESSOR OF GRAPHIC DESIGN Unavailable Unavailable DESJARLAIS, KAROLYN PROFESSOR OF GRAPHIC DESIGN Unavailable Unavailable MAHESH RECINOS Unavailable Unavailable Lester, Mavis DOLLYMAN DOLLYMAN Unavailable Unavailable Lester, A Mavis DOLLYMAN Unavailable Unavailable Lester, A Mavis DOLLYMAN Unavailable Unavailable Lester, A Mavis DOLLYMAN Unavailable Unavailable Lester, A Mavis DOLLYMAN Unavailable Unavailable Lester, A Mavis DOLLYMAN Unavailable Unavailable Lester, A Mavis DOLLYMAN Unavailable Unavailable Lester, A Mavis DOLLYMAN Unavailable Unavailable Lester, A Mavis DOLLYMAN Unavailable Unavailable Lester, A Mavis DOLLYMAN Unavailable Unavailable Lester, A Mavis DOLLYMAN Unavailable Unavailable Lester, A Mavis DOLLYMAN Unavailable Unavailable Lester, A Mavis DOLLYMAN Unavailable Unavailable Lester, A Mavis DOLLYMAN Unavailable Unavailable Lester, A Mavis DOLLYMAN Unavailable Unavailable Lester, A Mavis DOLLYMAN Unavailable Unavailable Lester, A Mavis DOLLYMAN Unavailable Unavailable Lester, A Mavis DOLLYMAN Unavailable Unavailable Lester, A Mavis DOLLYMAN Unavailable Unavailable Lester, A Mavis DOLLYMAN Unavailable Unavailable Lester, A Mavis DOLLYMAN Unavailable Unavailable Lester, A Mavis DOLLYMAN Unavailable Unavailable Lester, A Mavis DOLLYMAN Unavailable Unavailable Lester, A Mavis DOLLYMAN Unavailable Unavailable Lester, A Mavis DOLLYMAN Unavailable Unavailable Lester, A Mavis DOLLYMAN Unavailable Unavailable Lester, A Mavis DOLLYMAN Unavailable Unavailable Lester, A Mavis DOLLYMAN Unavailable Unavailable Lester, A Mavis DOLLYMAN Unavailable Unavailable BLUM, KATRIN Unavailable Unavailable Re-disclosure [...] is protected by Article 27-F of the [facility] Public Health law. If you continue you may have access to information: Regarding HIV / AIDS; Provided by facilities licensed or operated by the [facility] Office of Mental Health; or Provided by the [facility] Office for People With Developmental Disabilities. If such information is present, then the following [facility] mandated warning applies: This information has [...] law may result in a fine or group home sentence or both. A general authorization for the release of medical or other information is NOT sufficient authorization for further disc losure. Allergies and Adverse Reactions Type Description Substance Reaction Status Data Source(s ) Drug allergy Drug allergy AMOXICLIIN SWELLING, HIVES R [facility] Drug allergy olanzapine [facility]apine [facility] Drug allergy trimethoprim trimethoprim "BLISTERS IN MOUTH" [facility] Drug allergy sulfamethoxazole sulfamethoxazole "BLISTERS IN MOUTH" [facility] Drug allergy haloperidol haloperidol [facility] Drug allergy Sulfa (Sulfonamide Antibiotics) Sulfa (Sulfonami de Antibiotics) "BLISTERS IN MOUTH" [facility] Drug allergy Penicillins Penicillins SWELLING, HIVES [facility] Encounters Encounter Providers Location Date Indications Data Source(s ) Preadmit Attender: FAHAD MOONEY 04/15/2020 09:45:0 0 AM [facility] Outpatient [facility] 04/08/2020 12:00:00 AM [place] [address] ([facility]) Outpatient [facility] 04/05/2020 12:00:00 AM [place] [address] ([facility]) Outpatient Attender: NATHAN PAUL PA-C 03/30/2020 10:30:00 AM [facility] Outpatient Attender: Shira Youngblood PA-C 03/30/2020 10:18 :00 AM [facility] 03/30/2020 12:00:00 AM [place] [address] ([facility]) Outpatient Attender: JANE EDWARD 03/23/2020 02:00:00 PM [facility] Outpatient Attender: JANE EDWARD 03/17/2020 10:30:00 AM [facility] Outpatient Attender: JANE EDWARD 03/11/2020 04:00:00 PM [facility] Preadmit Attender: FAHAD MOONEY 03/11/2020 06:30:0 0 AM [facility] Outpatient Attender: KAROLYN VAN NP 03/09/2020 03: 40:00 PM [facility] Outpatient [facility] 03/03/2020 12:00:00 AM [place] [address] ([facility]) Outpatient Attender: Shira Becerraferrer: Shira Youngblood PA-C EMERGENCY ROOM-LAB 03/01/2020 04:49:00 PM EST - 03/01/2020 04:49:00 PM [facility] Outpatient Attender: Shira Youngblood PA-C 03/01/2020 03:45 :00 PM [facility] Outpatient [facility] 03/01/2020 12:00:00 AM EST eCW1 ([facility]) Outpatient [facility] 03/01/2020 12:00:00 AM EST eCW1 ([facility]) Outpatient Attender: KAROLYN VAN NP 02/18/2020 02: 40:00 PM [facility] Outpatient Attender: Kassidy NAIRC 02/18/2020 10:00:0 0 AM [facility] Outpatient [facility] 02/18/2020 12:00:00 AM EST eCW1 ([facility]) Outpatient [facility] 02/10/2020 12:00:00 AM EST eCW1 ([facility]) Outpatient [facility] 02/03/2020 12:00:00 AM EST eCW1 ([facility]) Outpatient [facility] 01/14/2020 12:00:00 AM EST eCW1 ([facility]) Outpatient [facility] 01/06/2020 12:00:00 AM EST eCW1 ([facility]) Outpatient Attender: JOHNATHON PATEL 01/02/2020 10:06:00 A [facility] Outpatient [facility] 01/02/2020 12:00:00 AM EST eCW1 ([facility]) Outpatient Attender: JANE EDWARD 01/01/2020 02:30:00 PM [facility] Outpatient Attender: KAROLYN VAN NP 12/24/2019 11: 00:00 AM [facility] Outpatient Attender: Shira Youngblood PA-C 12/24[facility] 12/24/2019 12:00:00 AM EDT eCW1 ([facility]) Outpatient Attender: JANE EDWARD 12/23/2019 01:54:00 PM E [facility] Outpatient [facility] 12/23/2019 12:00:00 AM EDT eCW1 ([facility]) Outpatient Attender: Mavis PATEL 12/12/2019 11:3 5:02 AM EDT [facility] Outpatient Attender: JANEAditya EDWARD 12/11/2019 03:00:00 PM E DT [facility] Outpatient [facility] 12/09/2019 12:00:00 AM EDT eCW1 ([facility]) Outpatient Attender: Mavis DIEGO 12/05/2019 01:2 6:01 PM EDT [facility] Inpatient Attender: PRERNA RIOS MDAdmitter: PRERNA Hopson MD ER-3RD 12/05/2019 10:08:00 AM EDT - 12/10/2019 01:07:00 PM EDT [facility] Patient discharged. Outpatient Attender: NATHAN PAUL PA-C 12/05/2019 09:03:00 AM [facility] Admission cancelled. Disregard status an d admitted date. Inpatient Attender: BEHZAD HOGAN MD Attender: BEHZAD HOGAN MDAttender: DIOGENES BUENO MDAttender: DIOGENES BUENO MDAdmitter: BEHZAD HOGAN MD ER-ICU 12/04/2019 11:06:00 PM EDT - 12/05/2019 10:03:00 AM EDT [facility] Patient discharged. Emergency Attender: GINGER Salaser: Melissa Youngblood PA-C EMERGENCY ROOM-ER 12/04/2019 04:21:00 PM EDT - 12/04/2019 08:40:00 PM EDT [facility] Patient discharged. Outpatient Attender: KAROLYN VAN NP 12/04/2019 03: 11:00 PM [facility] Outpatient Attender: Mavis DIEGO 11/29/2019 07:0 4:03 PM EDT [facility] Outpatient Attender: JOHNATHON DIEGO 11/29/2019 07:04:01 P M EDT [facility] Outpatient Attender: Mavis PATEL 11/24/2019 12:2 9:00 PM EDT [facility] Emergency Attender: EVONNE Garzasultant: STAFF NON 11/07/2019 12:19:00 AM EDT - 11/07/2019 04:20:00 AM EDT [facility] Patient discharged. Outpatient [facility] 11/07/2019 12:00:00 AM EDT eCW1 ([facility]) Outpatient Attender: Mavis DIEGO FP 11/04/2019 02:2 6:02 PM EDT [facility] Outpatient Attender: KAROLYN VAN NP 11/04/2019 11: 40:00 AM EDT [facility] Outpatient Attender: Mavis DIEGO FP 11/02/2019 01:2 6:00 PM EDT [facility] Outpatient Attender: Mavis DIEGO FP 10/31/2019 06:0 2:00 PM EDT [facility] Outpatient Attender: JOHNATHON DIEGO FP 10/31/2019 06:01:59 P M EDT [facility] Outpatient Attender: Mavis DIEGO FP 10/31/2019 06:0 1:03 PM EDT [facility] Outpatient Attender: JOHNATHON DIEGO FP 10/31/2019 06:01:01 P M EDT [facility] Outpatient Attender: Shira Youngblood PA-C 10/31/2019 09:06 :00 AM EDT [facility] Outpatient [facility] 10/31/2019 12:00:00 AM EDT eCW1 ([facility]) Outpatient Attender: JANE EDWARD 10/27/2019 11:00:00 AM E [facility] Outpatient Attender: KAROLYN VAN NP 10/21/2019 03: 20:00 PM EDT [facility] Emergency Attender: EVONNE HAGENConsultant: STAFF NON 10/09/2019 02:09:00 AM EDT - 10/09/2019 03:44:00 AM EDT [facility] Patient discharged. Outpatient Attender: KATRIN BLUM 10/06/2019 09:37:00 AM ED [facility] Outpatient Attender: Mavis DIEGO FP 09/25/2019 04:0 9:01 PM EDT [facility] Outpatient Attender: Mavis DIEGO FP 09/25/2019 04:0 7:59 PM EDT [facility] Outpatient Attender: JOHNATHON PATEL 09/23/2019 10:31:00 A M EDT [facility] Outpatient Attender: JOHNATHON DIEGO FP 09/23/2019 10:30:[address] [facility] Outpatient Attender: JOHNATHON TRUJILLOP FP 09/23/2019 12:02:[address] [facility] Outpatient Attender: JOHNATHON TRUJILLOP FP 09/22/2019 05:44:[address] [facility] Outpatient Attender: Mavis TRUJILLOP FP 09/22/2019 05:4 2:[address] [facility] Outpatient Attender: JOHNATHON TRUJILLOP FP 09/22/2019 02:38:[address] [facility] Outpatient Attender: Mavis TRUJILLOP FP 09/22/2019 12:0 5:[address] [facility] Outpatient Attender: JOHNATHON TRUJILLOP FP 09/22/2019 07:56:[address] [facility] Outpatient Attender: Mavis TRUJILLOP FP 09/16/2019 05:0 8:[address] [facility] Outpatient Attender: Mavis TRUJILLOP FP 09/14/2019 05:1 9:[address] [facility] Outpatient Attender: JOHNATHON TRUJILLOP FP 09/14/2019 05:19:00 P M EDT [facility] Outpatient Attender: Mavis TRUJILLOP FP 09/12/2019 11:5 3:[address] [facility] Outpatient Attender: Mavis TRUJILLOP FP 09/10/2019 11:0 6:01 PM EDT [facility] Outpatient Attender: JOHNATHON TRUJILLOP FP 09/10/2019 11:06:01 P M EDT [facility] Outpatient Referrer: Femi Marie MD 08/15/2019 05:44:00 A M EDT [facility] Outpatient Attender: Mavis TRUJILLOP FP 08/06/2019 09:5 2:[address] [facility] Outpatient Attender: JOHNATHON DIEGO FP 08/05/2019 07:41:[address] [facility] Outpatient Attender: Mavis TRUJILLOP FP 08/05/2019 09:2 3:[address] [facility] Outpatient Attender: JOHNATHON TRUJILLOP FP 08/05/2019 09:23:01 A M EDT [facility] Outpatient Attender: KATRIN BLUM 08/04/2019 09:42:00 AM ED [facility] Outpatient Attender: Mavis DIEGO FP 08/01/2019 10:3 1:[address] [facility] Outpatient Attender: Mavis DIEGO FP 08/01/2019 10:2 7:[address] [facility] Outpatient Attender: JOHNATHON DIEGO FP 07/30/2019 11:31:01 A M EDT [facility] Outpatient Attender: KATRIN BLUM 07/07/2019 03:30:00 PM ED [facility] Outpatient Attender: Mavis DIEGO FP 07/04/2019 10:3 3:[address] [facility] Outpatient Attender: Mavis DIEGO FP 07/03/2019 01:5 2:01 PM EDT [facility] Outpatient Attender: Mavis DIEGO FP 07/02/2019 10:2 8:02 AM EDT [facility] Outpatient Attender: Mavis DIEGO FP 07/01/2019 09:5 7:00 AM EDT [facility] Outpatient Attender: JOHNATHON DIEGO FP 07/01/2019 08:57:00 A M EDT [facility] Outpatient Referrer: Femi Marie MD 07/01/2019 04:55:00 A M EDT [facility] Outpatient Attender: JOHNATHON DIEGO FP 06/30/2019 04:21:[address] [facility] Outpatient Attender: Mavis DIEGO FP 06/22/2019 06:0 1:[address] [facility] Outpatient Attender: Mavis DIEGO FP 06/17/2019 03:3 2:[address] [facility] Outpatient Attender: JOHNATHON DIEGO FP 05/27/2019 12:22:[address] [facility] Outpatient Attender: Mavis DIEGO FP 05/24/2019 11:3 7:[address] [facility] Outpatient Attender: JOHNATHON DIEGO FP 05/20/2019 12:36:[address] [facility] Outpatient Attender: JOHNATHON DIEGO FP 05/20/2019 11:56:[address] [facility] Outpatient Attender: JOHNATHON TRUJILLOP 05/20/2019 11:42:01 A M EDT [facility] Outpatient Attender: [facility] 05/01/2019 03:31:00 P M [facility] Outpatient Attender: Mavis Batista DOLLYMAN 04/28/2019 10:4 4:01 AM [facility] Outpatient Attender: KATRIN BLUM 04/21/2019 10:29:00 AM [facility] Outpatient Attender: JOHNATHON Batista [facility] 04/15/2019 12:44:01 P M [facility] Outpatient Attender: MAHESH RECINOS 02/24/2019 01:46:00 PM [facility] Outpatient Attender: JANE EDWARD 02/21/2019 10:00:00 AM [facility] Outpatient Attender: JOHNATHON Batista [facility] 02/18/2019 09:01:04 P M [facility] Outpatient Attender: MAHESH RECINOS 02/10/2019 02:18:00 PM [facility] Inpatient Attender: CHAO GUERRA MDAtten harjinder: PRERNA RIOS MDAdmitter: PRERNA RIOS MD ER-3RD 12/23/2018 04:01:00 PM EDT - 12/26/2018 01:22:00 PM T [facility] Patient discharged. Inpatient Attender: ONDINA RAMIREZ MDAdmitter: ONDINA RAMIREZ MD E R-ICU 12/19/2018 05:26:00 PM EDT - 12/23/2018 03:42:00 PM EDT [facility] Patient discharged. Emergency Attender: MATIAS MIKE EMERGENCY ROOM-ER 03:51:00 PM EDT - 12/19/2018 04:47:00 PM [facility] Patient discharged. Medications Medication Brand Name Start [...] {capsule_at_bedtime} active Doxepin HCl 25 MG eCW1 ([facility]ena) Doxepin Hydrochloride 25 MG Oral Capsule Doxepin HCl 25 MG D oxepin HCl 25 MG 03/09/2020 12:00:00 AM EST 1.0 {capsule_at_bedtime} active Doxepin HCl 25 MG eCW1 ([facility]ena) Doxepin Hydrochloride 25 MG Oral Capsule Doxepin HCl 25 MG D oxepin HCl 25 MG 03/09/2020 12:00:00 AM EST 1.0 {capsule_at_bedtime} active Doxepin HCl 25 MG eCW1 ([facility]) 8-2 mg 03/03/2020 12:00:00 AM EST film [...] activ e Clonidine HCl 0.2 MG eCW1 ([facility]) Clonidine Hydrochloride 0.2 MG Oral Tablet Clonidine H Cl 0.2 MG Clonidine HCl 0.2 MG 12/24/2019 12:00:00 AM EDT 1.0 {tablet} activ e Clonidine HCl 0.2 MG eCW1 ([facility] jimena) Clonidine Hydrochloride 0.2 MG Oral Tablet Clonidine H Cl 0.2 MG Clonidine HCl 0.2 MG 12/24/2019 12:00:00 AM EDT 1.0 {tablet} activ e Clonidine HCl 0.2 MG eCW1 ([facility]ena) Clonidine Hydrochloride 0.2 MG Oral Tablet Clonidine H Cl 0.2 MG Clonidine HCl 0.2 MG 12/24/2019 12:00:00 AM EDT 1.0 {tablet} activ e Clonidine HCl 0.2 MG eCW1 ([facility] jimena) Clonidine Hydrochloride 0.2 MG Oral Tablet Clonidine H Cl 0.2 MG Clonidine HCl 0.2 MG 12/24/2019 12:00:00 AM EDT 1.0 {tablet} suspe nded Clonidine HCl 0.2 MG eCW1 ([facility] jimena) Clonidine Hydrochloride 0.2 MG Oral Tablet Clonidine H Cl 0.2 MG Clonidine HCl 0.2 MG 12/24/2019 12:00:00 AM EDT 1.0 {tablet} activ e Clonidine HCl 0.2 MG eCW1 ([facility]ena) Clonidine Hydrochloride 0.2 MG Oral Tablet Clonidine H Cl 0.2 MG Clonidine HCl 0.2 MG 12/24/2019 12:00:00 AM EDT 1.0 {tablet} activ e Clonidine HCl 0.2 MG eCW1 ([facility]ena) Clonidine Hydrochloride 0.2 MG Oral Tablet Clonidine H Cl 0.2 MG Clonidine HCl 0.2 MG 12/24/2019 12:00:00 AM EDT 1.0 {tablet} activ e Clonidine HCl 0.2 MG eCW1 ([facility]ena) Clonidine Hydrochloride 0.2 MG Oral Tablet Clonidine H Cl 0.2 MG Clonidine HCl 0.2 MG 12/24/2019 12:00:00 AM EDT 1.0 {tablet} activ e Clonidine HCl 0.2 MG eCW1 ([facility]ena) Clonidine Hydrochloride 0.2 MG Oral Tablet Clonidine H Cl 0.2 MG Clonidine HCl 0.2 MG 12/24/2019 12:00:00 AM EDT 1.0 {tablet} activ e Clonidine HCl 0.2 MG eCW1 ([facility]ena) Clonidine Hydrochloride 0.2 MG Oral Tablet Clonidine H Cl 0.2 MG Clonidine HCl 0.2 MG 12/24/2019 12:00:00 AM EDT 1.0 {tablet} suspe nded Clonidine HCl 0.2 MG eCW1 ([facility]) Clonidine Hydrochloride 0.2 MG Oral Tablet Clonidine H Cl 0.2 MG Clonidine HCl 0.2 MG 12/24/2019 12:00:00 AM EDT 1.0 {tablet} suspe nded Clonidine HCl 0.2 MG eCW1 ([facility]ena) Clonidine Hydrochloride 0.2 MG Oral Tablet Clonidine H Cl 0.2 MG Clonidine HCl 0.2 MG 12/24/2019 12:00:00 AM EDT 1.0 {tablet} activ e Clonidine HCl 0.2 MG eCW1 ([facility]) Clonidine Hydrochloride 0.2 MG Oral Tablet Clonidine H Cl 0.2 MG Clonidine HCl 0.2 MG 12/24/2019 12:00:00 AM EDT 1.0 {tablet} activ e Clonidine HCl 0.2 MG eCW1 ([facility]) 300 mg 12/13/2019 12:00:00 [...] {tablet_at_bedtime} active Clonazepam 0 .5 MG eCW1 ([facility]) Clonazepam 0.5 MG Oral Tablet Clonazepam 0.5 MG 11/04/2019 12:00:00 AM EDT 1.0 {tablet_at_bedtime} active Clonazepam 0 .5 MG eCW1 ([facility]) lisdexamfetamine dimesylate 50 MG Oral Capsule [Vyvans e] Vyvanse 50 MG Vyvanse 50 MG 11/04/2019 12:00:00 AM EDT 1.0 {capsule_in_the_morning} active Vyvanse 50 MG eCW1 ([facility]) Citalopram 20 MG Oral Tablet [Celexa] Celexa 20 MG Celexa 20 MG 11/04/2019 12:00:00 AM EDT 1.0 {tablet} active Ce elise 20 MG eCW1 ([facility]) Citalopram 20 MG Oral Tablet [Celexa] Celexa 20 MG Celexa 20 MG 11/04/2019 12:00:00 AM EDT 1.0 {tablet} active Ce elise 20 MG eCW1 ([facility]) lisdexamfetamine dimesylate 50 MG Oral Capsule [Vyvans e] Vyvanse 50 MG Vyvanse 50 MG 11/04/2019 12:00:00 AM EDT 1.0 {capsule_in_the_morning} active Vyvanse 50 MG eCW1 ([facility]) Citalopram 20 MG Oral Tablet [Celexa] Celexa 20 MG Celexa 20 MG 11/04/2019 12:00:00 AM EDT 1.0 {tablet} active Ce elise 20 MG eCW1 ([facility]) 75 mg 11/02/2019 12:00:00 AM EDT tablet [...] 1.0 {tablet} active Risperdal 3 MG eCW1 ([facility]) Risperidone 3 MG Oral Tablet [Risperdal] Risperdal 3 MG Risp erdal 3 MG 07/07/2019 12:00:00 AM EDT 1.0 {tablet} active Risperdal 3 MG eCW1 ([facility]) Risperidone 3 MG Oral Tablet [Risperdal] Risperdal 3 MG Risp erdal 3 MG 07/07/2019 12:00:00 AM EDT 1.0 {tablet} active Risperdal 3 MG eCW1 ([facility]) Risperidone 3 MG Oral Tablet [Risperdal] Risperdal 3 MG Risp erdal 3 MG 07/07/2019 12:00:00 AM EDT 1.0 {tablet} active Risperdal 3 MG eCW1 ([facility]) Risperidone 2 MG Oral Tablet [Risperdal] Risperdal 2 MG Risp erdal 2 MG 07/07/2019 12:00:00 AM EDT 1.0 {tablet} active Risperdal 2 MG eCW1 ([facility]) Risperidone 3 MG Oral Tablet [Risperdal] Risperdal 3 MG Risp erdal 3 MG 07/07/2019 12:00:00 AM EDT 1.0 {tablet} active Risperdal 3 MG eCW1 ([facility]) Risperidone 3 MG Oral Tablet [Risperdal] Risperdal 3 MG Risp erdal 3 MG 07/07/2019 12:00:00 AM EDT 1.0 {tablet} active Risperdal 3 MG eCW1 ([facility]) Risperidone 2 MG Oral Tablet [Risperdal] Risperdal 2 MG Risp erdal 2 MG 07/07/2019 12:00:00 AM EDT 1.0 {tablet} active Risperdal 2 MG eCW1 ([facility]) Risperidone 3 MG Oral Tablet [Risperdal] Risperdal 3 MG Risp erdal 3 MG 07/07/2019 12:00:00 AM EDT 1.0 {tablet} active Risperdal 3 MG eCW1 ([facility]) Risperidone 3 MG Oral Tablet [Risperdal] Risperdal 3 MG Risp erdal 3 MG 07/07/2019 12:00:00 AM EDT 1.0 {tablet} active Risperdal 3 MG eCW1 ([facility]) Risperidone 3 MG Oral Tablet [Risperdal] Risperdal 3 MG Risp erdal 3 MG 07/07/2019 12:00:00 AM EDT 1.0 {tablet} active Risperdal 3 MG eCW1 ([facility]) Risperidone 3 MG Oral Tablet [Risperdal] Risperdal 3 MG Risp erdal 3 MG 07/07/2019 12:00:00 AM EDT 1.0 {tablet} active Risperdal 3 MG eCW1 ([facility]) Risperidone 3 MG Oral Tablet [Risperdal] Risperdal 3 MG Risp erdal 3 MG 07/07/2019 12:00:00 AM EDT 1.0 {tablet} active Risperdal 3 MG eCW1 ([facility]) Risperidone 3 MG Oral Tablet [Risperdal] Risperdal 3 MG Risp erdal 3 MG 07/07/2019 12:00:00 AM EDT 1.0 {tablet} active Risperdal 3 MG eCW1 ([facility]) Risperidone 2 MG Oral Tablet [Risperdal] Risperdal 2 MG Risp erdal 2 MG 07/07/2019 12:00:00 AM EDT 1.0 {tablet} active Risperdal 2 MG eCW1 ([facility]) Risperidone 3 MG Oral Tablet [Risperdal] Risperdal 3 MG Risp erdal 3 MG 07/07/2019 12:00:00 AM EDT 1.0 {tablet} active Risperdal 3 MG eCW1 ([facility]) Risperidone 3 MG Oral Tablet [Risperdal] Risperdal 3 MG Risp erdal 3 MG 07/07/2019 12:00:00 AM EDT 1.0 {tablet} active Risperdal 3 MG eCW1 ([facility]) 8-2 mg 06/27/2019 12:00:00 AM EDT film [...] relationship to dick Policy Dick Plan Information [facility] [id number] SP [id number] [facility] MEDICAID [id number] S [id number] [facility] [id number] S [id number] [facility] MEDICAID [id number] S [id number] [facility] MEDICAID [id number] S [id number] [facility] O [id number] S [id number] Managed Care [facility] Community Plan P [id number] S [id number] Medicaid S [id number] S [id number] [facility] [id number] SP [id number] [facility] [id number] S [id number] [facility] PLAN [facility] [id number] SP [id number] [facility] XIX [phone] MEDICAID [id number] SP [id number] Managed Care - [facility] Community Plan P [id number] S [id number] MEDICAID [id number] S [id number] MEDICAID [id number] S [id number] MEDICAID PROF FEES [id number] MEDICAID [id number] S [id number] [facility] [id number] S [id number] Medicaid S [id number] S [id number] Managed Care - Community Plan [facility] P [id number] S [id number] [facility] DEPT [id number] SP [id number] Medicaid P [id number] S [id number] SELF PAY ONLY [id number] SP [id number] [facility] [id number] SP [id number] [facility] DEPT [id number] SP [id number] SELF PAY UNAVAILABLE SP UNAVAILA BLE Self Pay P UNAVAILABLE S UNAVAILA BLE Medicaid P [id number] S [id number] [facility] S UNAVAILA BLE Managed Care - Community Plan [facility] P [id number] S [id number] Medicaid S UNAVAILABLE S UNAVAILA BLE Problems, Conditions, and Diagnoses Code Display Name Description Problem Type Effective Dates Data Source(s) F19.10 Polysubstance abuse Polysubstance abuse Problem 0 03/11/2020 12:00:00 AM EST eCW1 ([facility]) F19.11 [id number] History of drug abuse Problem 03/01/2020 12: 00:00 AM EST eCW1 ([facility]) K14.6 [id number] Tongue sore Problem 03/01/2020 12:00:[address] eCW1 ([facility]) F19.10 [id number] Substance abuse Problem 12/24/2019 12:00:00 AM EDT eCW1 ([facility]) F50.81 [id number] Binge eating disorder Problem 11/04/2019 12: 00:00 AM EDT eCW1 ([facility]) G56.03 [id number] Carpal tunnel syndrome, bilateral Pr oblem 10/31/2019 12:00:00 AM EDT eCW1 ([facility]) R13.12 50779469 Oropharyngeal dysphagia Problem 10/31/2019 1 2:00:00 AM EDT eCW1 ([facility]) F17.200 72164899 Tobacco dependence Problem 10/31/2019 12:00: 00 AM EDT eCW1 ([facility]) E66.9 [id number] Obesity (BMI 30.0-34.9) Problem 0 10/31/2019 12:00:00 AM EDT eCW1 ([facility]) Z68.30 462125005 BMI 30.0-30.9,adult Problem 10/31/2019 12:00 :00 AM EDT eCW1 ([facility]) K21.9 [id number] Gastroesophageal ref lux disease, esophagitis presence not specified Problem 10/31/2019 12:00:00 AM EDT eCW1 ([facility]) K92.0 Hematemesis Hematemesis - cause unknown 020 05:42:44 PM EDT [facility] I80.9 Phlebitis and thrombophlebitis of unspec ified site Phlebitis and thrombophlebitis of unspecified site 05/20/2019 12:34:09 PM EDT [facility] right AC and right tibia F90.0 Attention-deficit hyperactivity disorder , predominantly inattentive type ATTN-DEFCT HYPERACTIVITY DISORDER, PREDOM INATTENT Diagnosis 02:00:00 PM [facility] F11.21 Opioid dependence, in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 count 251 x10E3/uL 150-450 [facility] ital MPV 10.8 fl 6.9-9.5 [facility] Neutrophils 43.4 % 34-64 [facility] Lymphocytes 44.4 % 25-45 [facility] Monocytes 8.6 % 1.7-10.6 [facility] Eosinophils 2.6 % 0.4-7.0 [facility] Basophils 0.6 % 0.1-2.0 [facility] Imm. Gran. 0.4 % 0.1-2.0 [facility] Abs. Neutro. 2.34 x10E3/uL 1.2-7.6 [facility] Abs. Lymph. 2.39 x10E3/uL 1.0-3.5 [facility] Abs. [place]. 0.46 x10E3/uL 0.1-1.0 [facility] Abs. Eosin. 0.14 x10E3/uL 0.1-0.7 [facility] Abs. Baso. 0.03 x10E3/uL 0.0-0.1 [facility] Abs. Imm. Gran. 0.02 x10E3/uL 0.0-0.1 [facility] ANRBC% 0 % 0 [facility] ID Date Data Source [id number] 12/05/2019 07:07:00 AM EDT [facility] Name Value Range Interpretation Code Description Data [place] rce(s) Supporting Document(s) TROPI < 0.015 ng/mL 0.000-0.079 [facility] ID Date Data Source [id number] 12/10/2019 06:07:00 AM EDT [facility] Performed at: [address] [id number] Director: Robyn Julio MD, Phone: [phone] Name Value Range Interpretation Code Description Data [place] rce(s) Supporting Document(s) LEVETIRACETAM <1.0 ug/mL 10.0-40.0 [facility] Verified by repeat analysisThis test was developed and its performance characteristicsdetermined by [facility]. It has not been cleared orapproved by the Food and Drug Administration. ID Date Data Source [id number] 12/05/2019 12:20:00 AM EDT [facility] Name Value Range Interpretation Code Description Data [place] rce(s) Supporting Document(s) LACTIC ACID CHUCHO 0.4 mmol/L 0.4-2.0 [facility] ID Date Data Source [id number] 12/05/2019 12:20:00 AM EDT [facility] Name Value Range Interpretation Code Description Data [place] rce(s) Supporting Document(s) TROPI < 0.015 ng/mL 0.000-0.079 [facility] ID Date Data Source [id number] 12/05/2019 12:20:00 AM EDT [facility] Name Value Range Interpretation Code Description Data [place] rce(s) Supporting Document(s) MAGNESIUM 2.1 mg/dL 1.6-2.6 [facility] ID Date Data Source [id number] 12/05/2019 12:20:00 AM [facility]T [facility] Name Value Range Interpretation Code Description Data [place] rce(s) Supporting Document(s) MARGUERITE 3.2 mg/dL 2.5-4.5 [facility] ID Date Data Source [id number] 12/05/2019 12:20:00 AM EDT [facility] Name Value Range Interpretation Code Description Data [place] rce(s) Supporting Document(s) GLU 104 mg/dL 70-110 [facility] Patients taking Sulfasalazine may have f alsely depressedGlucose levels. Patients taking Sulfapyridine may havefalsely elevated Glucose levels. Patients should be drawnfor Glucose before the initial administration of eitherdrug. BUN 7 mg/dL 7-23 [facility] CRE 0.504 mg/dL 0.500-1.300 [facility] GFR > 60 mL/min [facility] CHLORIDE 115 mmol/L 99-110 [facility] NA 145 mmol/L 136-147 [facility] POTASSIUM 3.6 mmol/L 3.5-5.1 [facility] TCO2 27 mmol/L 20-33 [facility] ANION GAP 6.6 10.0-20.0 [facility] CA 7.6 mg/dL 8.3-10.7 [facility] ALKALINE PHOS 63 U/L 45-117 [facility] TP 5.8 g/dL 6.0-7.8 [facility] ALB 2.8 g/dL 3.5-5.0 [facility] ESRD Dialysis patient Albumin reference range: 2.9-4.4 g/dL GL 3.0 g/dL 2.3-3.5 [facility] A/G 0.9 1.0-2.5 [facility] T. BILIRUBIN 0.2 mg/dL 0.1-1.1 [facility] [place] Total Bilirubin is n ot recommended forpatients undergoing treatment with eltrombopag (Promacta)due to the potential for falsely elevated results. ALTI 18 U/L 6-54 [facility] Patients taking Sulfasalazine and/or Sul fapyridine may havefalsely depressed ALT levels. Patients should be drawn forALT before the initial administration of either drug. AST 22 U/L 6-38 [facility] Patients taking Sulfasalazine and/or Sul fapyridine may havefalsely depressed AST levels. Patients should be drawn forAST before the initial administration of either drug. ID Date Data Source [id number] 12/05/2019 12:01:00 AM EDT [facility] Name Value Range Interpretation Code Description Data [place] rce(s) Supporting Document(s) WBC 7.56 x10E3/uL 4.0-10.5 [facility] RBC 3.54 x10E6/uL 4.20-5.40 [facility] Hemoglobin 10.5 g/dL 12.0-16.0 [facility] Hematocrit 32.9 % 37.0-47.0 [facility] MCV 92.9 fL 81.0-99.0 [facility] MCH 29.7 pg 27.0-31.0 [facility] MCHC 31.9 g/dL 32.7-35.6 [facility] RDW 13.1 % 11.5-14.0 [facility] Platelet count 301 x10E3/uL 150-450 [facility] ital MPV 9.8 fl 6.9-9.5 [facility] Neutrophils 57.9 % 34-64 [facility] Lymphocytes 31.7 % 25-45 [facility] Monocytes 7.8 % 1.7-10.6 [facility] Eosinophils 1.9 % 0.4-7.0 [facility] Basophils 0.4 % 0.1-2.0 [facility] Imm. Gran. 0.3 % 0.1-2.0 [facility] Abs. Neutro. 4.38 x10E3/uL 1.2-7.6 [facility] Abs. Lymph. 2.40 x10E3/uL 1.0-3.5 [facility] Abs. [place]. 0.59 x10E3/uL 0.1-1.0 [facility] Abs. Eosin. 0.14 x10E3/uL 0.1-0.7 [facility] Abs. Baso. 0.03 x10E3/uL 0.0-0.1 [facility] Abs. Imm. Gran. 0.02 x10E3/uL 0.0-0.1 [facility] spital ANRBC% 0 % 0 [facility] ID Date Data Source [id number] 12/04/2019 11:12:00 PM EDT [address] [id number] AND PHYSICALPATIENT NAME: BRUNA LEE MR#: [id number] PHYSICIAN: BEHZAD HOGAN MDAUTHOR: Behzad Hogan MD DATE: 12/04/19 RM#: ICUHISTORY & PHYSICAL DATE: 12/04/19 : 89EVALUATION TIME: 2330HistoryChief Complaint/Admit ReasonOverdoseHistory of Presenting [id number] female history of drug abuse, stress-induced seizures, [...] pain and also expressed suicidal thoughts. While [facility] patient's mother reported that patient had [...] 100s. Patient was transferred [facility] for further management. I evaluated patient inthe ICU patient remains obtunded unable to give any history. Nurse reportedpatient woke up few times and was able to answer simple questions. Patient hadreceived flumazenil and Narcan and Ativan at [facility] before arrival [facility].Past Medical/Surgical HistoryPast Medical/Surgical HistoryMedical ProblemsAcute [...] obtain as patient is obtundedExamVital SignsVital Signs-24 HRS10/138401Guar 98.2Pulse 62Resp 16B/P 91/52B/P MeanPulse Ox 98O2 DeliveryO2 Flow GduyNqU3Aqkptydm ExaminationGeneral Appearance no acute distress, ObtundedHead normocephalicENT [...] rce(s) Supporting Document(s) ID Date Data Source [id number] 12/04/2019 11:26:00 PM [facility]T [facility] Name Value Range Interpretation Code Description Data [place] rce(s) Supporting Document(s) FGLU 80 mg/dL 70-110 [facility] ID Date Data Source [id number] 12/04/2019 09:28:00 PM EDT [facility] Patient: COME, BRUNA Observation Repor t - [facility].VisitID: [id number] [place] [address] [phone], FRegistration Date/Time: 12/04/2019 15:46 Weight:68.4 kg (E). [...] rce(s) Supporting Document(s) ID Date Data Source [id number] 12/04/2019 08:43:00 PM EDT [facility] AP CHEST DATE OF EXAMINATION: 12/04/2019 [...] rce(s) Supporting Document(s) ID Date Data Source [id number] 12/04/2019 07:09:00 PM EDT [facility] Name Value Range Interpretation Code Description Data [place] rce(s) Supporting Document(s) SARS COV2 TRP [facility] and reported by [facility]. ID Date Data Source [id number] 12/04/2019 08:26:00 PM EDT [facility] TSYSORDER [id number] Name Value Range Interpretation Code Description Data [place] rce(s) Supporting Document(s) Adenovirus Not Detected Detected Not [facility] ospital Coronavirus 229E Not Detected Detected Not [facility] Coronavirus HKU1 Not Detected Detected Not [facility] Coronavirus NL63 Not Detected Detected Not [facility] Coronavirus OC43 Not Detected Detected Not [facility] Sars Cov 2 Not Detected Detected Not [facility] Metapneumovirus Not Detected Detected Not [facility] Human Rhinovirus Not Detected Detected Not [facility] Influenza A Not Detected Detected [facility] Influenza B Not Detected Detected Not [facility] Parainfluenza Virus 1 Not Detected Detected Not [facility] Parainfluenza Virus 2 Not Detected Detected Not [facility] Parainfluenza Virus 3 Not Detected Detected [facility] Parainfluenza Virus 4 Not Detected Detected Not [facility] Respiratory Syncytial Virus Not Detected Detected Not [facility] Bordetella parapertus ([id number]) Not Detected Detected Not [facility] Bordetella pertussis (ptxP) Not Detected Detected Not [facility] Chlamydia pneumoniae Not Detected Detected Not [facility] Mycoplasma pneumoniae Not Detected Detected Not [facility] The Above results have been determined b y using the MopedArray system.FilmArray is an automated in vitro diagnostic system thatutilizes nested multiplex Polymerase Chain Reaction (PCR)and high-resolution melting analysis to detect and identifymultiple nucleic acid targets from clinical specimens. ID Date Data Source [id number] 12/04/2019 06:58:00 PM EDT [facility] [...] Name Value Range Interpretation Code Description Data [facility] Supporting Document(s) ID Date Data Source [id number] 12/04/2019 06:56:00 PM EDT [facility] [...] rce(s) Supporting Document(s) ID Date Data Source [id number] 12/04/2019 05:47:00 PM EDT [facility] TSYSORDER [id number] Name Value Range Interpretation Code Description Data [place] rce(s) Supporting Document(s) URINE AMPHETAMINES NEGATIVE <1000 ng/mL [facility] pital THC,URINE NEGATIVE <50 ng/mL [facility] URINE BARBITURATES NEGATIVE <300 ng/mL [facility] ital PCP,URINE NEGATIVE <25 ng/mL [facility] COCAINE, URINE NEGATIVE <300 ng/mL [facility] URINE,OPIATES NEGATIVE <300 ng/mL [facility] URINE,TCA POSITIVE <1000 ng/mL H [facility] URINE BENZODIAZEPINES NEGATIVE <300 ng/mL [facility] ospital THESE TESTS ARE PERFORMED USING AN IMMU NOASSAY FOR THEQUALITATIVE DETERMINATION OF THE PRESENCE OF THE MAJORMETABOLITES OF DRUGS OF ABUSE. THESE TESTS ARE ONLY ASCREENING AND NOT CONFIRMATORY. CLINICAL CONSIDERATION ANDPROFESSIONAL JUDGMENT MUST BE APPLIED TO ANY DRUG OF ABUSETEST RESULT. ID Date Data Source [id number] 12/04/2019 05:30:00 PM EDT [facility] l TSYSORDER [id number] Name Value Range Interpretation Code Description Data [place] rce(s) Supporting Document(s) HCG URINE NEGATIVE NEGATIVE [facility] ID Date Data Source [id number] 12/04/2019 05:39:00 PM EDT [facility] ital TSYSORDER [id number] Name Value Range Interpretation Code Description Data [place] rce(s) Supporting Document(s) URINE COLOR. LIGHT YELLOW [facility] URINE APPEARANCE CLEAR [facility] l URINE GLUCOSE (UA) NEGATIVE mg/dL NEGATIVE [facility] URINE BILIRUBIN NEGATIVE NEGATIVE [facility] URINE KETONE NEGATIVE mg/dL NEGATIVE [facility] SPECIFIC GRAVITY,URINE 1.010 1.001-1.035 [facility] URINE BLOOD NEGATIVE NEGATIVE [facility] PH,URINE 7.5 5.0-9.0 [facility] URINE PROTEIN NEGATIVE mg/dL NEGATIVE [facility] UR[facility] UROBILINOGEN NORMAL(0.2-1) mg/dL 0-1 [facility] URINE NITRATE NEGATIVE NEGATIVE [facility] URINE LEUKOCYTE ESTERASE NEGATIVE NEGATIVE [facility] ID Date Data Source [id number] 12/04/2019 06:09:00 PM EDT [facility] l Name Value Range Interpretation Code Description Data [place] rce(s) Supporting Document(s) CKMB 1.8 ng/ml 0.0-3.6 [facility] ID Date Data Source [id number] 12/04/2019 04:47:00 PM EDT [facility] l Name Value Range Interpretation Code Description Data [place] rce(s) Supporting Document(s) SALICYLATE 3.5 mg/dL 2.8-20.0 [facility] ID Date Data Source [id number] 12/04/2019 04:47:00 PM EDT [facility] Name Value Range Interpretation Code Description Data [place] rce(s) Supporting Document(s) ETHYL ALCOHOL 0.00 % 0-0.01 [facility] ID Date Data Source [id number] 12/04/2019 04:47:00 PM EDT [facility] Name Value Range Interpretation Code Description Data [place] rce(s) Supporting Document(s) ACETAMINOPHEN LEVEL < 2.0 mcg/mL 10-30 L [facility] ospital ID Date Data Source [id number] 12/04/2019 04:47:00 PM EDT [facility] l Name Value Range Interpretation Code Description Data [place] rce(s) Supporting Document(s) GLUCOSE 81 mg/dL 74-106 [facility] BLOOD UREA NITROGEN 10 mg/dL 7-18 [facility] ital CREATININE 0.7 mg/dL 0.6-1.0 [facility] GLOMERULAR FILTRATION RATE >90 mL/min [facility] GFR IS CALCULATED IN mL/min/1.73m2 LISANDRA L FUNCTION: >90MILDLY DECREASED: 60-89MILDY TO MODERATELY DECREASED: 45-59 MODERATELY TO SEVERELY DECREASED: 30-44SEVERELY DECREASED: 15-29RENAL FAILURE: <15 AST 40 U/L 15-37 H [facility] ALT 27 U/L 12-78 [facility] ALKALINE PHOSPHATASE 68 U/L 46-116 [facility] pital TOTAL BILIRUBIN 0.3 mg/dL 0.2-1.0 [facility] TOTAL PROTEIN 7.4 g/dl 6.4-8.2 [facility] ALBUMIN 3.9 gm/dL 3.4-5.0 [facility] ID Date Data Source [id number] 12/04/2019 04:46:00 PM EDT [facility] l TSYSORDER [id number] Name Value Range Interpretation Code Description Data [place] rce(s) Supporting Document(s) AMMONIA 39 umol/L 11-32 H [facility] ID Date Data Source [id number] 12/04/2019 04:19:00 PM EDT [facility] l TSYSORDER [id number] Name Value Range Interpretation Code Description Data [place] rce(s) Supporting Document(s) WHITE BLOOD COUNT 9.8 K/mm3 4.0-10.0 [facility] al RED BLOOD COUNT 4.11 M/mm3 4.00-5.50 [facility] HEMOGLOBIN 12.3 gm/dL 12.0-16.0 [facility] HEMATOCRIT 37.9 % 36.0-48.8 [facility] MEAN CELL VOLUME 92.2 fl 80-96 [facility] MEAN CORPUSCULAR HEMOGLOBIN 29.9 pg 27.0-31.0 [facility] MEAN CORPUSCULAR HGB CONC 32.5 g/dl 32.0-36.0 [facility] RED CELL DISTRIBUTION WIDTH 13.0 % 10.0-14.5 [facility] PLATELET COUNT 368 K/mm3 172-450 [facility] MEAN PLATELET VOLUME 9.5 fl 9.0-13.0 [facility] pital GRAN % 71.0 % 50-80.0 [facility] IG% 0.2 % 0.0-0.2 [facility] LYMPH % 20.5 % 25.0-50.0 L [facility] MONO % 7.1 % 2.0-10.0 [facility] EOS % 1.0 % 0-5.0 [facility] ID Date Data Source [id number] 12/11/2019 08:09:00 PM EDT [facility] Name Value Range Interpretation Code Description Data [place] rce(s) Supporting Document(s) LEVETIRACETAM, S <1.0 ug/mL 10.0-40.0 [facility] Verified by repeat analysisThis test was developed and its performance characteristicsdetermined by [facility]. It has not been cleared orapproved by the Food and Drug Administration.Performed at: [facility] LabRichard [address] [place], [place] [id number] Director: Robyn Julio MD, Phone: [phone] ID Date Data Source [id number] 12/11/2019 08:05:00 PM EDT [facility] Name Value Range Interpretation Code Description Data [place]mira rce(s) Supporting Document(s) Levetiracetam, S 10.0-40.0 Below low normal [facility] p Verified by repeat analysisThis test was developed and its performance characteristicsdetermined by [facility]. It has not been cleared or approvedby the Food and Drug Administration. ID Date Data Source [id number] 12/04/2019 05:04:00 PM EDT [facility] l TSYSORDER [id number] Name Value Range Interpretation Code Description Data [place]mira rce(s) Supporting Document(s) DDIMER 0.74 mg/LFEU 0.19-0.60 H [facility] ID Date Data Source [id number] 12/04/2019 12:00:00 AM EDT [facility] Name Value Range Interpretation Code Description Data Elmira rce(s) Supporting Document(s) 2019 Novel Coronavirus RNA [facility] This lab was ordered by [facility] L aboratory and reported by [facility]. ID Date Data Source [id number] 11/07/2019 12:19:00 AM EDT [facility] 1 OrderSheet [facility] Emergency Department [address] [place] [address] Phone #: ext- [phone] 11/07/2019 00:19 Patient: [...] Blairdose: 4 mg (NOW Turrin, Evonne Darryl Bay R.N. Bay R.N.x1Noe Chao; 2 OrderSheet [facility] Emerg ency Department [address] [place] [address] Phone #: ext- [phone] 11/07/2019 00:19 Patient: BRUNA LEE Sex: F : 1985 Age: 34yGENERAL ORDERSOrder Description Priority Entered Acknowledged Initialed[Electronically signed by Mara Gonzalez R.N. (04:11/07/2019)][Electronically signed by Evonne Hagen M.D. (05:23 11/07/2019)][Electronically locked by Mara Gonzalez R.N. (:11/07/2019)] Name Value Range Interpretation Code Description Data Elmira rce(s) Supporting Document(s) ID Date Data Source [id number] 11/07/2019 12:19:00 AM EDT [facility] 1 Medication Reconciliation Report [facility] Emergency Department [address] [place] [address] Phone #: ext- [phone] 11/07/2019 00:19 Patient: [...] rce(s) Supporting Document(s) ID Date Data Source [id number] 11/07/2019 12:19:00 AM EDT [facility] 1 Medication Administration Record [facility] Emergency Department [address] [place] [address] Phone #: ext- [phone] 11/07/2019 00:19 Patient: BRUNA LEE Sex: F : 1985 Age: 34yWeight: 78.9 kgHeight/Length: 60 inBMI: 34ALLERGIES: Penicillins, Sulfa Antibiotics Date/Time Medication Administered Medication OrderedStart IV NS NS IV 1000 mL Bolus: : Bolus [id number] 11/07/2019 Dose: IV Fluids mL (X1)Meme Maldonado R.N. Rate: 999 mL/hr---- Dispensed: 1000 mL bagStop Site: #1 left wrist03:55 11/07/2019Mara Gonzalez R.N.Given ZOFRAN [IVP] (ONDANSETRON HCL) Zofran 4 mg IVP X 1 dose: 4 mg02:22 11/07/2019 Dose: 4 mg IVP (NOW x1)Meme Maldonado R.N. Site: #1 left wrist Name Value Range Interpretation Code Description Data Elmira rce(s) Supporting Document(s) ID Date Data Source [id number] 11/07/2019 12:19:00 AM EDT [facility] 1 General Instructions [facility] Emergency Department [address] [place] [address] Phone #: ext- [phone] 11/07/2019 00:19 Patient: [...] to plan of care. 2 General Instructions [facility] Emergency Department [address] [place] [address] Phone #: ext- [phone] 11/07/2019 00:19 Patient: [...] Tiredness Inability to sleep 3 General Instructions [facility] Emergency Department [address] [place] [address] Phone #: ext- [phone] 11/07/2019 00:19 Patient: BRUNA LEE Sex: F [...] help you manage stress. 4 General Instructions [facility] Emergency Department [address] [place] [address] Phone #: ext- [phone] 11/07/2019 00:19 Patient: [...] relieved by rest and mild pain reliever [phone] [employer]. [address] [place] [address], [place] [address]. All rights reserved. This information is not intended as asubstitute for professional medical care. Always follow your healthcare professional's instructions. You have been given the following additional information: Anxiety Reaction(Electronically signed by Evonne Hagen M.D. 11/07/2019 05:23) Name Value Range Interpretation Code Description Data Elmira rce(s) Supporting Document(s) ID Date Data Source [id number] 11/07/2019 12:19:00 AM EDT [facility] 1 Clinical Report - Nurses [facility] Emergency Department [address] [place] [address] Phone #: ext- [phone] 11/07/2019 00:19 Patient: BRUNA LEE Sex: F : 1985 Age: 34yTRIAGEHistorian: EMS and patient.Triage time: 00:24 11/07/2019.Chief Complaint: NAUSEA and ("face swelling").Onset. (states that it has been going on all day.). ( states that she has been sleeping a lot and used Molly2 days ago. 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 --00:27 11/07/19 Meme [...] last month. 2 Clinical Report - Nurses [facility] Emergency Department [address] [place] [address] Phone #: ext- [phone] 11/07/2019 00:19 Patient: [...] hanging, cutting wrists and OD pills. Was [facility] 3 wks. Last admit 2017. Sees a [...] pump. Allergies 3 Clinical Report - Nurses [facility] Emergency Department [address] [place] [address] Phone #: ext- [phone] 11/07/2019 00:19 Patient: BRUNA LEE Sex: F [...] patient is calm and resting quietly. ( [place] provided. Reassurance given to pt. Lights dimmed. [...] Patient verbalized understanding. Written instructions provided in Mauritanian. The patient was discharged by the physician. 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 2 Clinical Report - Physicians/Mid Levels [facility] Emergency Department [address] [place] [address] Phone #: ext- [phone] 11/07/2019 00:19 Patient: [...] (Reference) 3 Clinical Report - Physicians/Mid Levels [facility] Emergency Department [address] [place] [address] Phone #: ext- [phone] 11/07/2019 00:19 Patient: [...] Male GFR Interprentation 20-49 yrs >60 mL/min Aadksv25-12 yrs >56 mL/min Normal 60- 69 yrs >49 mL/min Normal 70-79yrs>42 mL/min Normal 80 and above >35 mL/min Normal Female GFRInterpretation 20-39 yrs >60 mL/min Normal 40-49 yrs >58 mL/minNormal 50-59 yrs >51 mL/min Normal 60-69 yrs >45 mL/min Normal 4 Clinical Report - Physicians/Mid Levels [facility] Emergency Department [address] [place] [address] Phone #: ext- [phone] 11/07/2019 00:19 Patient: BRUNA LEE Sex: F : 1985 Age: 47r11-68 yrs >39 mL/min Normal 80 and above >32 mL/min NormalBeta-HCG, Qual Serum: (JENN: 11/07/2019 02:15) ( MsgRcvd 11/07/2019 03:20) Final results Test Result Flag Units (Reference) HCG SERUM QUAL NEGATIVE (NORMAL: NEGAT HCG SERUM QL REENTER NEGATIVE (NORMAL: NEGAT { KIT LOT # [id number] ){ KIT EXP [id number] ){ PROCEDURAL CONTROL VALID)CPK: (JENN: 11/07/2019 02:15) [...] PRESUMPTIVE POSITIVE CONFIRMATION WILL BE PERFORMED AT [facility].Urinalysis: (JENN: 11/07/2019 02:00) ( IlgRcvd 11/07/2019 02:28) Final results Test Result Flag [...] Indicate 5 Clinical Report - Physicians/Mid Levels [facility] Emergency Department [address] [place] [address] Phone #: ext- [phone] 11/07/2019 00:19 Patient: BRUNA LEE Sex: F [...] was requested by: Evonne Hagen Reference #: [id number] Others' Prescriptions Patient Name: Bruna LeeBirth Date: 1985 Address: [address] [place], [place] [address]Sex: Female Rx Written Rx Dispensed Drug Quantity [...] table. 6 Clinical Report - Physicians/Mid Levels [facility] Emergency Department [address] [place] [address] Phone #: ext- [phone] 11/07/2019 00:19 Patient: [...] Oral. 7 Clinical Report - Physicians/Mid Levels [facility] Emergency Department [address] [place] [address] Phone #: ext- [phone] 11/07/2019 00:19 [id number] Sex: F : 1985 Age: 34y RisperDAL [...] rce(s) Supporting Document(s) ID Date Data Source [id number] 11/07/2019 03:20:00 AM EDT [facility] Name Value Range Interpretation Code Description Data [place]mira rce(s) Supporting Document(s) HCG SERUM QUAL NEGATIVE NORMAL: NEGATIVE [facility] HCG SERUM QL REENTER NEGATIVE NORMAL: NEGATIVE [facility] { KIT LOT # [id number] ){ KIT EXP DATE 12-08-20 ){ PROCEDURAL CONTROL VALID ) ID Date Data Source [id number] 11/07/2019 03:15:00 AM EDT [facility] Name Value Range Interpretation Code Description Data [place]mira rce(s) Supporting Document(s) Creatine kinase [Enzymatic activity/volume] in Serum or Plasma 3 13 U/L 30 - 170 H [facility] ID Date Data Source [id number] 11/07/2019 03:14:00 AM T [facility] Name Value Range Interpretation Code Description Data [place]ira rce(s) Supporting Document(s) COMPREHENSIVE METABOLIC PANEL [facility] COMPREHENSIVE METABOLIC PANEL Sodium [Moles/volume] in Serum or Plasma 140 mEq/L 134 - 153 [facility] Potassium [Moles/volume] in Serum or Plasma 3.8 mEq/L 3.6 - 5.0 [facility] Chloride [Moles/volume] in Serum or Plasma 100 mEq/L 98 - 107 [facility] Carbon dioxide, total [Moles/volume] in Serum or Plasma 30 MEQ/L 22 - 30 [facility] Glucose [Mass/volume] in Serum or Plasma 98 MG/DL 65 - 110 [facility] BUN 14 MG/DL 7 - 21 [facility] Creatinine [Mass/volume] in Serum or Plasma 0.7 MG/DL 0.7 - 1.5 [facility] BUN/CREAT 20 8 - 27 [facility] al Protein [Mass/volume] in Serum or Plasma 5.9 G/DL 6.3 - 8.2 L [facility] Albumin [Mass/volume] in Serum or Plasma 3.6 G/DL 3.9 - 5.0 L [facility] Globulin [Mass/volume] in Serum by calculation 2.3 GM/DL 2.4 - 3.2 L [facility] A/G RATIO 1.6 0.8 - 2.0 [facility] Calcium [Mass/volume] in Serum or Plasma 9.2 MG/DL 8.4 - 10.2 [facility] Bilirubin.total [Mass/volume] in Serum or Plasma <0.7 MG/DL 0.2 - 1.3 [facility] Alkaline phosphatase [Enzymatic activity/volume] in Serum or Plasma 62 U/L 38 - 126 [facility] Aspartate aminotransferase [Enzymatic activity/volume] in Serum or Plasma 302 U/L 5 - 40 H [facility] Alanine aminotransferase [Enzymatic activity/volume] in Seru m or Plasma 125 U/L 7 - 56 H [facility] Anion gap 3 in Serum or Plasma 10.0 mmol/L 8.0 - 16.0 [facility] AGE 34 yrs [facility] al NON-AA GFR >60 mL/min [facility] AFR AMER GFR >60 mL/min [facility] Ho spital Male GFR In [...] >32 mL/min Normal ID Date Data Source [id number] 11/07/2019 02:27:00 AM EDT [facility] Name Value Range Interpretation Code Description Data [place]mira rce(s) Supporting Document(s) CBC W/AUTOMATED DIFF [facility] COMPLETE BLOOD COUNT Leukocytes [#/volume] in Blood by Automated count 8.3 10^3/uL 4.2 - 1 1.0 [facility] Erythrocytes [#/volume] in Blood by Automated count 3.87 10^6/uL 4. 20 - 5.40 L [facility] Hemoglobin [Mass/volume] in Blood 11.6 g/dL 12.0 - 16.0 L [facility] Hematocrit [Volume Fraction] of Blood by Automated count 36.0 % 3 7.0 - 47.0 L [facility] Erythrocyte mean corpuscular volume [Entitic volume] by Auto mated count 93.0 fL 81.0 - 101 [facility] Erythrocyte mean corpuscular hemoglobin [Entitic mass] by Automated count 30.0 pg 27.0 - 34.0 [facility] Erythrocyte mean corpuscular hemoglobin concentration [Mass/volume] by Automated count 32.2 g/dL 31.0 - 36.0 [facility] Erythrocyte distribution width [Ratio] by Automated count 13.3 % 11.5 - 14.5 [facility] Platelets [#/volume] in Blood by Automated count 271 10^3/uL 150 - 45 0 [facility] Platelet mean volume [Entitic volume] in Blood by Automated count 9.5 fL 7.4 - 10.4 [facility] Neutrophils/100 leukocytes in Blood by Automated count 82.6 % 37. 0 - 80.0 H [facility] Lymphocytes/100 leukocytes in Blood by Manual count 14.3 % 25.0 - 40.0 L [facility] Monocytes/100 leukocytes in Blood by Automated count 1.6 % 3.0 - 8.0 L [facility] Eosinophils/100 leukocytes in Blood by Automated count 0.8 % 0.0 - 7.0 [facility] Basophils/100 leukocytes in Blood by Automated count 0.2 % 0.0 - 2.5 [facility] %IG 0.5 % 0.0 - 0.0 H [facility] %NRBC 0.0 % 0.0 - 0.0 [facility] al Neutrophils [#/volume] in Blood by Automated count 6.85 10^3/uL 2.00 - 6.90 [facility] Lymphocytes [#/volume] in Blood by Automated count 1.19 10^3/uL 0.60 - 3.40 [facility] Monocytes [#/volume] in Blood by Automated count 0.13 10^3/uL 0.00 - 0.90 [facility] Eosinophils [#/volume] in Blood by Automated count 0.07 10^3/uL 0.00 - 0.70 [facility] Basophils [#/volume] in Blood by Automated count 0.02 10^3/uL 0.00 - 0.20 [facility] #IG 0.04 10^3/uL 0.00 - 0.10 [facility]spital #NRBC 0.00 10^3/uL 0.00 - 0.00 [facility] ospital MANUAL DIFF NOT INDICATED [facility] RBC MORPH NOT INDICATED [facility] spital ID Date Data Source [id number] 11/07/2019 03:14:00 AM EDT [facility] Name Value Range Interpretation Code Description Data [place] rce(s) Supporting Document(s) DRUG SCREEN URINE [facility] URINE DRUG SCREEN Amphetamine [Presence] in Urine by Screen method PRESUMP POS LISANDRA L: NEGATIVE [facility] BARBITURATES NEGATIVE NORMAL: NEGATIVE [facility] BENZO NEGATIVE NORMAL: NEGATIVE [facility] COCAINE NEGATIVE NORMAL: NEGATIVE [facility] Tetrahydrocannabinol [Presence] in Urine NEGATIVE NORMAL: NEGATIVE [facility] OPIATES NEGATIVE NORMAL: NEGATIVE [facility] Phencyclidine [Presence] in Urine by Screen method NEGATIVE NOR MAL: NEGATIVE [facility] \\BLDo\\URINE DRUG SCR EEN INTERPRETATION\\BLDx\\ THE CUTOFFF LEVELS FOR DETECTION ARE FOLLOWS: AMPHETAMINES 1000 ng/ml BARBITUARATES 200 ng/ml BENZODIAZEPINES 100 ng/ml THC 50 ng/ml PHENCYCLIDINE 25 ng/ml OPIATES 300 ng/ml COCAINE 300 ng/ml ALL POSITIVES ARE CONSIDERED PRESUMPTIVE POSITIVE CONFIRMATION WILL BE PERFORMED AT PHYSICIAN REQUEST. ID Date Data Source [id number] 11/07/2019 02:27:00 AM EDT [facility] Name Value Range Interpretation Code Description Data [place] rce(s) Supporting Document(s) URINALYSIS [facility] Hos[facility] james URINALYSIS SOURCE R [facility] COLOR yellow NORMAL: Yellow [facility] CLARITY clear NORMAL: Clear [facility] Specific gravity of Urine by Test strip 1.020 1.001 - 1.030 [facility] pH 6 5 - 9 [facility] Glucose [Mass/volume] in Urine by Test strip NORM NORMAL: Negat [facility] Bilirubin.total [Presence] in Urine by Test strip NEG NORMAL: Negative [facility] Ketones [Presence] in Urine by Test strip NEG NORMAL: Negative [facility] Protein [Mass/volume] in Urine by Test strip NEG NORMAL: Negat [facility] Nitrite [Presence] in Urine by Test strip NEG NORMAL: Negative [facility] BLOOD NEG NORMAL: Negative [facility] Leukocyte esterase [Presence] in Urine by Test strip NEG LISANDRA L: Negative [facility] Urobilinogen [Mass/volume] in Urine by Test strip 1 less kenna n 1.0 mg/dL [facility] MICROSCOPIC Not Indicate [facility] ID Date Data Source [id number] 10/30/2019 10:27:00 AM EDT [facility] Name Value Range Interpretation Code Description Data [place]ira rce(s) Supporting Document(s) BG FASTING 132 mg/dL 70-[address] [facility] TSH 0.526 microintl units/mL 0.358-3.740 [facility] ID Date Data Source [id number] 10/30/2019 10:27:00 AM EDT [facility] Name Value Range Interpretation Code Description Data [place] rce(s) Supporting Document(s) HCT 37.6 % 36.0-47.[address] [facility] HGB 11.8 g/dL 12.0-15.[address] [facility] MCH 31.4 G/DL pg 32.0-36.5 L [facility] MCHC 29.9 PG % 27.0-33.0 N [facility] PLATELETS 209 10 10*3/mm3 150-450 N [facility] RBC 3.94 10 10*6/mm3 4.00-5.40 L [facility] RDW 12.6 % 11.5-14.5 N [facility] WBC TOTAL 4.5 4.0-10.0 N [facility] ID Date Data Source [id number] 10/13/2019 03:25:00 PM EDT [facility] Name Value Range Interpretation Code Description Data [place] rce(s) Supporting Document(s) HCT 40.7 % 36.0-47.0 N [facility] HGB 13.3 g/dL 12.0-15.5 N [facility] MCH 32.7 G/DL pg 32.0-36.5 [facility] MCHC 30.4 PG % 27.0-33.0 N [facility] PLATELETS 288 10 10*3/mm3 150-450 N [facility] RBC 4.37 10 10*6/mm3 4.00-5.40 N [facility] RDW 12.4 % 11.5-14.5 [facility] WBC TOTAL 8.7 4.0-10.0 N [facility] ID Date Data Source [id number] 10/09/2019 02:09:00 AM EDT [facility] 1 OrderSheet [facility] Emergency Department [address] [place] [address] Phone #: ext- [phone] 10/09/2019 02:08 Patient: [...] rce(s) Supporting Document(s) ID Date Data Source [id number] 10/09/2019 02:09:00 AM EDT [facility] 1 Medication Reconciliation Report [facility] Emergency Department [address] [place] [address] Phone #: ext- [phone] 10/09/2019 02:08 Patient: BRUNA ELE Sex: F : 1985 Age: 34yWeight: 81.1 [...] rce(s) Supporting Document(s) ID Date Data Source [id number] 10/09/2019 02:09:00 AM EDT [facility] 1 Medication Administration Record [facility] Emergency Department [address] [place] [address] Phone #: ext- [phone] 10/09/2019 02:08 Patient: BRUNA LEE Sex: F : 1985 Age: 34yWeight: 81.1 kgHeight/Length: 60 inBMI: 34.9ALLERGIES: Penicillins, Sulfa Antibiotics Date/Time Medication Administered Medication OrderedGiven IBUPROFEN [PO] Ibuprofen 800 mg PO X1 dose: 60787:39 10/09/2019 Dose: 800 mg Tablets PO mg (NOW x1)Meme Maldonado R.N. Name Value Range Interpretation Code Description Data [place] rce(s) Supporting Document(s) ID Date Data Source [id number] 10/09/2019 02:09:00 AM EDT [facility] 1 General Instructions [facility] Emergency Department [address] [place] [address] Phone #: ext- [phone] 10/09/2019 02:08 Patient: [...] INFORMATIONViral Pharyngitis (Sore Throat) 2 General Instructions [facility] Emergency Department [address] [place] [address] Phone #: ext- [phone] 10/09/2019 02:08 Patient: [...] glass of warm water. 3 General Instructions [facility] Emergency Department [address] [place] [address] Phone #: ext- [phone] 10/09/2019 02:08 Patient: [...] breathing or noisy breathing 4 General Instructions [facility] Emergency Department [address] [place] [address] Phone #: ext- [phone] 10/09/2019 02:08 Patient: BRUNA LEE Sex: F : 1985 Age: 34y Muffled voice New rash Other symptoms are getting worse [phone] [employer]. [address] [place] [address]. All rights reserved. This information is not intended as asubstitute for professional medical care. Always follow your healthcare professional's instructions. You have been given the following additional information: Pharyngitis, Viral(Electronically signed by Evonne Hagen M.D. 10/09/2019 03:51) Name Value Range Interpretation Code Description Data [place] rce(s) Supporting Document(s) ID Date Data Source [id number] 10/09/2019 02:09:00 AM EDT [facility] 1 Clinical Report - Nurses [facility] Emergency Department [address] [place] [address] Phone #: ext- [phone] 10/09/2019 02:08 Patient: BRUNA LEE Sex: F : 1985 Age: 34yTRIAGEHistorian: EMS and patient.Triage time: 02:08 10/09/2019.Chief Complaint: SORE THROAT.This started just prior to arrival. The patient has had a hoarse voice.Treatment MOBILE PHONE SALESPERSON:Took Tylenol. (arthritis kind).EMS Treatment MOBILE PHONE SALESPERSON:See EMS report.SEPSIS SCREEN: SIRS Screen: heart rate greater than 90. Sepsis Screen negative. No suspected orconfirmed signs of infection present. --02:14 10/09/19 Meme Maldonado R.N.02:11 10/09/19. BP: 130/86. MAP: 100. HR: 105. RR: 18. O2 saturation: 100%. Temp: 98.5 F. Pain levelnow: 12/05. --02:14 10/09/19 Meme Maldonado R.N.Treatment MOBILE PHONE SALESPERSON:(Seen at [facility] for this issue within the last few [...] Maldonado R.N.AllergiesPenicillins.(hives) 2 Clinical Report - Nurses [facility] Emergency Department [address] [place] [address] Phone #: ext- [phone] 10/09/2019 02:08 Patient: [...] Dental decay. 3 Clinical Report - Nurses [facility] Emergency Department [address] [place] [address] Phone #: ext- [phone] 10/09/2019 02:08 Patient: BRUNA LEE Sex: F [...] Patient verbalized understanding. Written instructions provided in Mauritanian. The patient was discharged by the physician. [...] rce(s) Supporting Document(s) ID Date Data Source [id number] 10/09/2019 02:09:00 AM EDT [facility] 1 Clinical Report - Physicians/Mid Levels [facility] Emergency Department [address] [place] [address] Phone #: ext- [phone] 10/09/2019 02:08 [id number] Sex: F : 1985 Age: 34y Time [...] (per EMS, pt is well known to [facility] ER for multiple ER visits for multiple somatic and psychiatric complaints; tonight, she complains of sore throat, hoarse voice, bugs on her skin, etc.; pt has therapist in [place]). Similar symptoms previously. Patient has had similar [...] Hernia Repair. Medications: 2 Clinical Report - Physicians/[facility] Emergency Department [address] [place] [address] Phone #: ext- [phone] 10/09/2019 02:08 Patient: [...] PROCEDURAL CONTROL VALID ){ KIT LOT # [id number] ){ KIT EXP DATE [id number] )The 3 Clinical Report - Physicians/Mid Levels [facility] Emergency Department [address] [place] [address] Phone #: ext- [phone] 10/09/2019 02:08 Patient: [...] was requested by: Evonne Hagen Reference #: [id number] Others' Prescriptions Patient Name: Bruna LeeBirth Date: 1985 Address: [address] [place] [id number]: Female Rx Written Rx Dispensed Drug Quantity [...] film 56 28 MoJose J hopson MD [facility] 05/01/2019 05/01/2019 [...] #15 4 Clinical Report - Physicians/Mid Levels [facility] Emergency Department [address] [place] [address] Phone #: [phone] 10/09/2019 02:08 Patient: BRUNA LEE Sex: F [...] unknown*. 5 Clinical Report - Physicians/Mid Levels [facility] Emergency Department [address] [place] [address] Phone #: [phone] 10/09/2019 02:08 Patient: [...] Name Value Range Interpretation Code Description Data [facility] rce(s) Supporting Document(s) ID Date Data Source [id number] 10/09/2019 03:02:00 AM EDT [facility] Name Value Range Interpretation Code Description Data [facility] rce(s) Supporting Document(s) RAPID STREP NEGATIVE NORMAL: NEGATIVE [facility] RAPID STREP REENTER NEGATIVE NORMAL: NEGATIVE [facility] { PROCEDURAL CONTROL VALID ){ KIT LOT # [id number] ){ KIT EXP DATE [id number] )The Strep [...] basis for treatment. ID Date Data Source [id number] 09/22/2019 02:34:28 PM EDT [facility] Measurements & CalculationsHeight: 61 inches [...] (ER) or urgent care clinic? Yes - [facility] Have you seen another healthcare provider? Yes - [facility] Have you seen a dentist? NoIntake [...] stop or control worrying? Not at all ORX-2 Score: 0Screening, Brief Intervention, & Referral to [...] is different. Sees [facility] for her mental health issues (schizophrenia) and feels that this is going well.HPI performed by: Francesco Ritchie MD, September 22, 2019 2:52 PMTransitions of Care InboundProblem ReviewProblem List was reviewed and/or updated during this visit.Medication Reconciliation & ReviewMedication List was reviewed and/or updated during this visit, including review of any fivq-nwg-pugpndy medications, herbal therapies, and/or supplements.Allergy ReviewAllergy List [...] Plan Problems:Added: Hematemesis - cause unknown (ICD-578.0) (MIF80-C72.0) Assessment: Instructions: Currently asymptomatic but worrisome enough to warrant further workup.Avoid NSAIDs and refer to GI.Return to ER if this occurs again.Assessed:Peripheral neuropathy (ICD-356.9) (SOP25-M30.9) Assessment: Instructions: I am not sure where [...] (Critical)Orders:Adult - Ofc Vst, EST, Level III [CPT-40238] Gastroenterology Consult [CPT-60817] Medications:GABAPENTIN 400 MG ORAL CAPSULE (GABAPENTIN) take one tablet by mouth three times daily as needed #90[Capsule] x 0 Route:ORAL Entered and Authorized by: Francesco Ritchie MD Method used: Electronically to [facility] (retail) [address] [place] [address] Note to Pharmacy: Route: ORAL; Indications: PERIPHERAL NEUROPATHY;BILATERAL CARPAL TUNNEL SYNDROME RxID: [id number] 1000 MG ORAL TABLET (LEVETIRACETAM) 1 pill po bid #60[Tablet] x 0 Route:ORAL Entered and Authorized by: Francesco Ritchie MD Method used: Electronically to [facility] (retail) [address] [place] [address] Note to Pharmacy: Route: ORAL; RxID: [id number] SUCCINATE 50 MG ORAL TABLET (SUMATRIPTAN SUCCINATE) take one tab po at the onset of headache. may repeat dose x one if no releif after two hours. #15[Tablet] x 0 Entered and Authorized by: Francesco Ritchie MD Method used: Electronically to [facility] (retail) [address] [place] [address] RxID: [id number] OMEPRAZOLE 20 MG ORAL TABLET DELAYED RELEASE (OMEPRAZOLE) One tablet by mouth every day #30[Tablet] x 2 Route:ORAL Entered and Authorized by: Francesco Ritchie MD Method used: Electronically to [facility] (retail) [address] [place] [address] Note to Pharmacy: Route: ORAL; RxID: [id number] DOXYCYCLINE MONOHYDRATE 100 MG ORAL TABLET (DOXYCYCLINE MONOHYDRATE) take one tablet by mouth twice daily x 5 days #10[Tablet] x 0 Route:ORAL Entered by: Demetria Elliott MA Authorized by: Mavis Batista DOLLYMAN Method used: Electronically to [facility] (retail) [address] [place] [address] RxID: [id number] signed by Francesco Ritchie MD on 09/22/2019 at 5:42 PM Name Value Range Interpretation Code Description Data [facility] rce(s) Supporting Document(s) ID Date Data Source [id number] 09/10/2019 10:45:00 PM EDT [facility] Name Value Range Interpretation Code Description Data [place] rce(s) Supporting Document(s) BG FASTING 96 mg/dL 70-100 [facility] ID Date Data Source [id number] 09/10/2019 10:45:00 PM EDT [facility] Name Value Range Interpretation Code Description Data [place] rce(s) Supporting Document(s) HCT 37.4 % 36.0-47.[address] [facility] HGB 12.1 g/dL 12.0-15.[address] [facility] MCH 32.4 G/DL pg [facility] 30.2 PG % 27.0-33.0 [facility] PLATELETS 244 10 10*3/mm3 150-[address] [facility] RBC 4.01 10 10*6/mm3 4.00-5.40 N [facility] RDW 12.8 % 11.5-14.5 [facility] WBC TOTAL 4.9 4.0-10.0 N [facility] ID Date Data Source [id number] 05/20/2019 11:42:55 AM EDT [facility] Measurements & CalculationsHeight: 61 inches [...] you seen another healthcare provider? Yes - [facility] Have you seen a dentist? NoRate [...] during this visit, including review of any vocr-mah-shsqvuq medications, herbal therapies, and/or supplements.Allergy ReviewAllergy List [...] Problems:Added: Phlebitis and thrombophlebitis of unspecified site (TCZ53-A02.9): right AC and right tibia Assessment: Instructions: May continue warm compresses 3-4 times daily as needed. Please try to keep extremities elevated. We have sent a prescription to your pharmacy today. Please take medication as prescribed. Please report any major side effects.Phlebitis and thrombophlebitis of unspecified site (QSR62-P24.9): right AC and right tibia Assessment: right foot and right forearmAssessed:Tobacco use (ICD-305.1) (ZYV41-N80.0) Assessment: Instructions: Please continue to try to quit smoking.Health Screening (ICD-V70.0) (TKT82-T83.9) Assessment: Instructions: Fasting labs ordered for you today. Please return prior to your next visit to have labs drawn. Please fast for 8-10 hours prior.Substance abuse (ICD-305.90) (TUF30-G71.10) Assessment: Instructions: Please try to avoid the [...] (Critical)BACTRIM (Critical)* SULFA ANTIBIOTICS (Critical)Orders:COMP METABOLIC PANEL [CPT-87741] CBC W/DIFF [CPT- 23137] HgBA1c [CPT-61099] LIPID PANEL [CPT-01878] TSH [CPT-73989] T-4 free [CPT- 93076] Vitamin D 250H Unspecified [CPT-53954] URINALYSIS [CPT-17353] VITAMIN B- 12 [CPT-54818] Folate (Folic Acid Serum) [CPT-21552] IRON [CPT-58793] Adult - Ofc Vst, EST, Level III [CPT-34528] Follow-Up Return to clinic: 2-3 weeks for follow up Additional Follow-Up: If symptoms worsen, please return to clinic or the ERClinical Visit Summary CompletedMedications:DOXYCYCLINE MONOHYDRATE 100 MG ORAL TABLET (DOXYCYCLINE MONOHYDRATE) take one tablet by mouth twice daily x 5 days #10[Tablet] x 0 Route:ORAL Entered and Authorized by: Mavis DIEGO Method used: Electronically to [facility] (retail) [address] [place] [address] Note to Pharmacy: Route: ORAL; Indications: PHLEBITIS AND THROMBOPHLEBITIS OF UNSPECIFIED SITE RxID: [id number] signed by Mavis DIEGO on 05/24/2019 at 11:37 PM ____ Name Value Range Interpretation Code Description Data [place] rce(s) Supporting Document(s) Procedure Social History Code Duration Value Status Description Data Source(s ) Smoking 03/30/2020 12:00:00 AM EST Current Smoker completed Curre nt Smoker eCW1 ([facility]) Smoking 03/30/2020 12:00:00 AM EST Current Smoker completed Curre nt Smoker eCW1 ([facility]) Smoking 03/30/2020 12:00:00 AM EST Current Smoker completed Curre nt Smoker eCW1 ([facility]) Smoking 03/01/2020 12:00:00 AM EST Current Smoker completed Curre nt Smoker eCW1 ([facility]) Smoking 03/01/2020 12:00:00 AM EST Current Smoker completed Curre nt Smoker eCW1 ([facility]) Smoking 03/01/2020 12:00:00 AM EST Current Smoker completed Curre nt Smoker eCW1 ([facility]) Smoking 02/18/2020 12:00:00 AM EST Current Smoker completed Curre nt Smoker eCW1 ([facility]) Smoking 12/24/2019 12:00:00 AM EDT Current Smoker completed Curre nt Smoker eCW1 ([facility]) Smoking 12/24/2019 12:00:00 AM EDT Current Smoker completed Curre nt Smoker eCW1 ([facility]) Smoking 12/24/2019 12:00:00 AM EDT Current Smoker completed Curre nt Smoker eCW1 ([facility]) Smoking 12/24/2019 12:00:00 AM EDT Current Smoker completed Curre nt Smoker eCW1 ([facility]) Smoking 12/24/2019 12:00:00 AM EDT Current Smoker completed Curre nt Smoker eCW1 ([facility]) Smoking 12/24/2019 12:00:00 AM EDT Current Smoker completed Curre nt Smoker eCW1 ([facility]) Smoking 12/24/2019 12:00:00 AM EDT Current Smoker completed Curre nt Smoker eCW1 ([facility]) Smoking 10/31/2019 12:00:00 AM EDT Current Smoker completed Curre nt Smoker eCW1 ([facility]) Smoking 10/31/2019 12:00:00 AM EDT Current Smoker completed Curre nt Smoker eCW1 ([facility]) Smoking 10/31/2019 12:00:00 AM EDT Current Smoker completed Curre nt Smoker eCW1 ([facility]) Vital Signs ID Date Data Source UNK Name Value Range Interpretation Code Description Data Source(s) Oxygen saturation in Arterial blood by Pulse oximetry 98 % 98 % eCW1 ([facility]) Respiratory rate 18 /min 18 /min eCW1 ([facility]) Heart rate 119 /min 119 /min eCW1 ([facility]) Body mass index (BMI) [Ratio] 35.74 kg/m2 35.74 kg/m2 eCW1 ([facility]) Body weight 183.0 [lb_av] 183.0 [lb_av] eCW1 ([facility]) Body height 60.0 [in_i] 60.0 [in_i] eCW1 ([facility]) Oxygen saturation in Arterial blood by Pulse oximetry 99 % 99 % eCW1 ([facility]) Respiratory rate 18 /min 18 /min eCW1 ([facility]) Heart rate 93 /min 93 /min eCW1 ([facility]) Body mass index (BMI) [Ratio] 35.27 kg/m2 35.27 kg/m2 eCW1 ([facility]) Body weight 180.6 [lb_av] 180.6 [lb_av] eCW1 ([facility]) Body height 60 [in_i] 60 [in_i] eCW1 ([facility]) Oxygen saturation in Arterial blood by Pulse oximetry 97 % 97 % eCW1 ([facility]) Respiratory rate 18 /min 18 /min eCW1 ([facility]) Heart rate 89 /min 89 /min eCW1 ([facility]) Body mass index (BMI) [Ratio] 36.48 kg/m2 36.48 kg/m2 eCW1 ([facility]) Body weight 186.8 [lb_av] 186.8 [lb_av] eCW1 ([facility]) Body height 60 [in_i] 60 [in_i] eCW1 ([facility]) Body height 60 [in_i] 60 [in_i] eCW1 ([facility]) Oxygen saturation in Arterial blood by Pulse oximetry 98 % 98 % eCW1 ([facility]) Respiratory rate 18 /min 18 /min eCW1 ([facility]) Heart rate 86 /min 86 /min eCW1 ([facility]) Body temperature 98.0 [degF] 98.0 [degF] eCW1 ( [facility]) Body mass index (BMI) [Ratio] 32.10 kg/m2 32.10 kg/m2 eCW1 ([facility]) Body weight 164.4 [lb_av] 164.4 [lb_av] eCW1 ([facility]) Oxygen saturation in Arterial blood by Pulse oximetry 99 % 99 % eCW1 ([facility]) Respiratory rate 18 /min 18 /min eCW1 ([facility]) Heart rate 100 /min 100 /min eCW1 ([facility]) Body temperature 98.7 [degF] 98.7 [degF] eCW1 ( [facility]) Body mass index (BMI) [Ratio] 30.70 kg/m2 30.70 kg/m2 eCW1 ([facility]) Body weight 157.2 [lb_av] 157.2 [lb_av] eCW1 ([facility]) Body height 60 [in_i] 60 [in_i] eCW1 ([facility]) ID Date Data Source [id number] 12/26/2019 01:56:00 PM EDT [facility] Name Value Range Interpretation Code Description Data Source(s) WEIGHT 72.3 kilos 72.3 kilos [facility] HEIGHT 152.4 centimeters 152.4 centimeters [facility] WEIGHT 75 kilos 75 kilos [facility] HEIGHT 152.4 centimeters 152.4 centimeters [facility] ID Date Data Source [id number] 12/10/2019 06:07:00 AM EDT [facility] Name Value Range Interpretation Code Description Data Source(s) WEIGHT 68 kilos 68 kilos [facility] HEIGHT 152.4 centimeters 152.4 centimeters [facility] WEIGHT 68.4 kilos 68.4 kilos [facility] HEIGHT 152.4 centimeters 152.4 centimeters [facility] ID Date Data Source [id number] 12/08/2019 01:43:00 PM EDT [facility] Name Value Range Interpretation Code Description Data Source(s) WEIGHT 75 kilos 75 kilos [facility] HEIGHT 152.4 centimeters 152.4 centimeters [facility] ID Date Data Source [id number] 12/08/2019 01:43:00 PM EDT [facility] Name Value Range Interpretation Code Description Data Source(s) WEIGHT 74 kilos 74 kilos [facility] HEIGHT 160.02 centimeters 160.02 centimeter [facility] Patient Treatment Plan of Care Planned Activity Planned Date Details Description Data Source (s) Doxepin Hydrochloride 25 MG Oral Capsule 03/09/2020 12:00:00 AM EST eCW1 ([facility]) Doxepin Hydrochloride 25 MG Oral Capsule 03/09/2020 12:00:00 AM EST eCW1 ([facility]) Clonidine Hydrochloride 0.2 MG Oral Tablet 12/24/2019 12:00:00 AM E DT eCW1 ([facility]) Clonidine Hydrochloride 0.2 MG Oral Tablet 12/24/2019 12:00:00 AM E DT eCW1 ([facility]) Clonidine Hydrochloride 0.2 MG Oral Tablet 12/24/2019 12:00:00 AM E DT eCW1 ([facility]) Clonidine Hydrochloride 0.2 MG Oral Tablet 12/24/2019 12:00:00 AM E DT eCW1 ([facility]) Clonidine Hydrochloride 0.2 MG Oral Tablet 12/24/2019 12:00:00 AM E DT eCW1 ([facility]) Clonidine Hydrochloride 0.2 MG Oral Tablet 12/24/2019 12:00:00 AM E DT eCW1 ([facility]) lisdexamfetamine dimesylate 50 MG Oral Capsule [Vyvans e] 11/04/2019 12:00:00 AM EDT eCW1 ([facility]) Clonazepam 0.5 MG Oral Tablet 11/04/2019 12:00:00 AM EDT eCW1 ([facility]) Citalopram 20 MG Oral Tablet [Celexa] 11/04/2019 12:00:00 AM EDT eCW1 ([facility]) Risperidone 3 MG Oral Tablet [Risperdal] 07/07/2019 12:00:00 AM EDT eCW1 ([facility]) Risperidone 3 MG Oral Tablet [Risperdal] 07/07/2019 12:00:00 AM EDT eCW1 ([facility]) Risperidone 2 MG Oral Tablet [Risperdal] 07/07/2019 12:00:00 AM EDT eCW1 ([facility]) Risperidone 2 MG Oral Tablet [Risperdal] 07/07/2019 12:00:00 AM EDT eCW1 ([facility]) Risperidone 3 MG Oral Tablet [Risperdal] 07/07/2019 12:00:00 AM EDT eCW1 ([facility])
--- NOTE | 2020-04-09 05:24 | HPEPDOC ---
General Date of Admission 04/09/2020 Date of Service: Apr 09, 2020 Chief Complaint The patient is a 34-year-old female admitted with a reason for visit of Cold/Flu Symptoms. Source: Patient History of Present Illness Ms. Phipps is a 34 year old female with schioaffective disorder and IV meth use here with worsening dyspnea. She is very agitated and upset about this hospital. She said about six months prior, she was is good health until she came to this hospital. Then she started to have multiple medical problems. She said she had spiders in her mouth at one point which was biting her internally. She has the sensation of crawling under her skin. She reports having gone blind once in the past for a day. Vision returned and she was sent home which she was upset about. She said what had sent her to the ER today was that she felt she had multiple cuts on her tongue. She said it has happened in the past, and she heals herself quickly so when she arrives to the ED, no one sees it. Today, she thought drinking alcohol would help with the cuts but it didn't so she came to the ED. Otherwise, she reports have dyspnea, cough, and sore throat which worsened about 2 weeks ago. Reported on and off fever as well. While in the ED, her story was not congruent with lab work. Her alcohol level was negative. There is no visible cuts on tongue. She was doing okay at room air, but when she ambulated, she desaturated down to 89%. ED gave her a bolus of fluid and steroids and requested admission for hypoxia. Otherwise, she tells me she stopped taking buprenorphine since it was not working for her. She wants to go home and use IV drugs. She tells me she still uses IV meth, last in the left arm. Does not remember how long ago she used. Home Medications Scheduled Amitriptyline HCl (Amitriptyline HCl) 50 Mg Tablet, 50 MG PO QHS, (Reported) Buprenorphine HCl/Naloxone HCl (Suboxone 8 mg-2 mg Sl Film) 1 Each Film, 2 STRIP SL DAILY, (Reported) Chlorhexidine Gluconate (Chlorhexidine Gluconate) 473 Ml Mouthwash, 15 ML SSP BID, (Reported) Citalopram Hydrobromide (Citalopram HBr) 20 Mg Tablet, 20 MG PO DAILY, (Reported) Doxepin HCl (Doxepin HCl) 25 Mg Capsule, 25 MG PO QHS, (Reported) Gabapentin (Gabapentin) 600 Mg Tablet, 600 MG PO TID, (Reported) Levetiracetam (Keppra) 1,000 Mg Tab, 1,000 MG PO BID, (Reported) Loratadine (Loratadine) 10 Mg Tablet, 10 MG PO DAILY, (Reported) Omeprazole (Omeprazole) 20 Mg Capsule.dr, 20 MG PO DAILY, (Reported) Risperidone (Risperidone) 3 Mg Tablet, 3 MG PO BID, (Reported) Scheduled PRN Clonidine HCl (Clonidine HCl) 0.2 Mg Tablet, 0.2 MG PO TID PRN for ANXIETY, (Reported) Ketorolac Tromethamine (Ketorolac Tromethamine) 10 Mg Tablet, 10 MG PO Q6H PRN for PAIN, (Reported) Sumatriptan Succinate (Imitrex) 50 Mg Tablet, 50 MG PO DAILY PRN for MIGRAINE, (Reported) Miscellaneous Medications [Patient Comment] , (Reported) MED REC COMPLETED VIA PHARMACY Allergies Coded Allergies: Penicillins (Verified Allergy, Unknown, 01/09/20) dextroamphetamine (Verified Allergy, Unknown, 01/09/20) haloperidol (Verified Allergy, Unknown, 01/09/20) olanzapine (Verified Allergy, Unknown, 01/09/20) sulfamethoxazole (Verified Allergy, Unknown, 01/09/20) trimethoprim (Verified Allergy, Unknown, 01/09/20) ziprasidone (Verified Allergy, Unknown, 01/09/20) ibuprofen (Unverified Adverse Reaction, Unknown, 01/09/20) Prefers stronger meds Past Medical History Medical History 1. Suicide gesture 2. Depression/Anxiety 3. Polysubstance abuse 4. IV drug abuse 5. Hepatitis C 6. Migraine 7. Schizoaffective disorder Surgical History 1. Hernia Repair Family History Father: Cirrhosis Mother: Lupus Social History * Smoker: current smoker (Could not tell me how long, but said for a long time) Alcohol: occationally (Last drinked today) Drugs: other (Injects meth, does not know how long last used, but it was last injected in left arm) A-FIB/CHADSVASC A-FIB History Current/History of A-Fib/PAF?: No Review of Systems Constitutional: Reports: Fever; Denies: Chills Eyes: Reports: Other (blurry vision) ENT: Reports: Sore Throat Skin: Reports: Rash (Track rodriguez on left arm) Pulmonary: Reports: Dyspnea (Worse in the past week) Cardiovascular: Reports: Chest Pain (Worse with deep breathing) Gastrointestinal: Reports: Abdominal Pain Genitourinary: Denies: Dysuria Hematologic: Reports: Bruising Musculoskeletal: Reports: Other Symptoms (Generalized pain all over) Psych: Reports: Anxiety, Depression Physical Examination General Exam: Positive: Mild Distress (emotional distress) Eye Exam: Positive: EOMI; Negative: Sclera icteric ENT Exam: Positive: Tongue Midline Neck Exam: Positive: Supple Chest Exam: Positive: Other (Mild crackles) Heart Exam: Positive: Tachycardic, Regular Rhythm Abdomen Exam: Positive: Normal bowel sounds, Soft Extremity Exam: Negative: Edema Skin Exam: Positive: Rash (Track rodriguez on left arm) Neuro Exam: Positive: Cranial Nerves 3-12 NL Psych Exam: Positive: Anxiety Vital Signs Vital Signs Date Time Temp Pulse Resp B/P (MAP) Pulse Ox O2 Delivery O2 Flow Rate FiO2 04/09/20 04:16 97 20 99 Room Air 04/09/20 04:00 107/52 (70) 04/09/20 01:17 97.0 Laboratory Data Labs 24H Laboratory Tests 2 04/09/20 02:46: SARS Antigen (LFIA) POSITIVEH 04/09/20 02:48: SARS Antigen (LFIA) POSITIVEH 04/09/20 03:02: Immature Granulocyte % (Auto) 0.5, Neutrophils (%) (Auto) 42.1, Lymphocytes (%) (Auto) 44.9H, Monocytes (%) (Auto) 11.2H, Eosinophils (%) (Auto) 0.8, Basophils (%) (Auto) 0.5, Neutrophils # (Auto) 1.6, Lymphocytes # (Auto) 1.7, Monocytes # (Auto) 0.4, Eosinophils # (Auto) 0.0, Basophils # (Auto) 0.0, Nucleated Red Blood Cells % (auto) 0.0, Anion Gap 9, Glomerular Filtration Rate > 60.0, Calcium Level 8.5, Total Bilirubin < 0.1L, Direct Bilirubin < 0.1, Aspartate Amino Transf (AST/SGOT) 31, Alanine Aminotransferase (ALT/SGPT) 31, Alkaline Phosphatase 65, Total Protein 7.8, Albumin 4.1, Albumin/Globulin Ratio 1.1L, Thyroid Stimulating Hormone (TSH) 1.020, Human Chorionic Gonadotropin, Qual NEGATIVE, Salicylates Level 2.5L, Acetaminophen Level 2.3L, Ethyl Alcohol Level < 0.003 04/09/20 03:34: Influenza A Immunofluorescence NEGATIVE, Influenza B Immunofluorescence NEGATIVE 04/09/20 04:31: POC pH (Misc Panel) 7.453H, POC Base Excess (Misc Panel) 5.0H, POC Saturated Percent O2 (Misc) 96, POC pO2 (Misc Panel) 77.0L, POC pCO2 (Misc Panel) 41.8, POC HCO3 (Misc Panel) 29.2H, POC Total CO2 (Misc Panel) 30.0H CBC/BMP Laboratory Tests 04/09/20 03:02 Microbiology Microbiology 04/09/20 Group A Streptococcus Screen (CRISTI), Received Pending Assessment/Plan Ms. Phipps is a 34 year old female with schioaffective disorder and IV meth use here with worsening dyspnea. She does well at rest, but desaturates with activity. Will start her on steroids and IS. She should be ambulated again in the day time to see if there is improvement in the hypoxia. Plan / VTE VTE Prophylaxis Ordered?: Yes Plan Plan 1. COVID positive -Worsening dyspnea and cough -Hypoxia on exertion -Steroids and IS -Repeat ambulation and pulse ox monitoring 2. IV drug use -Reports use of meth, but unclear when last usage -blood cultures ordered -No leukocytosis, but has leukopenia. 3. Schizoaffective disorder and other psych disorders -Continue amitriptyline, citalopram, levetiracetam, and risperidone 4. Polysubstance abuse -Tells me that she no longer takes suboxone, because it does not work for her 5. DVT ppx -Lovenox REEMA JACOBO DO Apr 09, 2020 05:24
[2020-04-09] MEDS ORDERED: ALBUTEROL 90 MCG/ACT 8GM HFA INHALER INH PRN (05:30)
[2020-04-09] MEDS ORDERED: LORA-674 PO (06:12)
[2020-04-09] MEDS ORDERED: RISP-10 PO (06:12)
[2020-04-09] MEDS ORDERED: GABA600T4 PO (06:12)
[2020-04-09] MEDS ORDERED: PERI12LIQ SSP (06:12)
[2020-04-09] MEDS ORDERED: DOXE25CA PO (06:12)
[2020-04-09] MEDS ORDERED: KETO10TAB PO (06:12)
[2020-04-09] MEDS ORDERED: AMIT50TA PO (06:12)
[2020-04-09] MEDS ORDERED: CLON0.2T PO (06:12)
[2020-04-09] MEDS ORDERED: PATIENT COMMENT (06:14)
[2020-04-09] MEDS ORDERED: cloNIDine 0.2 MG TAB PO PRN (07:00)
[2020-04-09] MEDS ORDERED: KETOROLAC TROMETHAMINE 10 MG TAB PO PRN (07:00)
[2020-04-09] MEDS ORDERED: SUMAtriptan SUCCINATE 25 MG TAB PO PRN (07:00)
[2020-04-09 08:00] VITALS: BP 110/57; O2SAT 98
[2020-04-09] MEDS ORDERED: CitaloPRAM (CeleXA) 20 MG TAB PO SCH (09:00)
[2020-04-09] MEDS ORDERED: dexameTHASONE 4 MG/ML 1ML VIAL (J1100 PER 1MG) IV SCH (09:00)
[2020-04-09] MEDS ORDERED: CHLORHEXIDINE GLUCONATE 0.12 % 15ML UDC (PERIDEX ORAL RINSE) SSP SCH (09:00)
[2020-04-09] MEDS ORDERED: GABAPENTIN 300 MG CAP PO SCH (09:00)
[2020-04-09] MEDS ORDERED: OMEPRAZOLE 20 MG CAP PO SCH (09:00)
[2020-04-09] MEDS ORDERED: LORATADINE 10 MG TAB PO SCH (09:00)
[2020-04-09] MEDS ORDERED: levETIRAcetam 250MG TABLET (KEPPRA) PO SCH (09:00)
[2020-04-09] MEDS ORDERED: risperiDONE 3 MG TAB PO SCH (09:00)
[2020-04-09] MEDS ORDERED: ENOXAPARIN 40MG/0.4ML SYRINGE (J1650 PER 10MG) SC SCH (09:00)
[2020-04-09 11:01] LABS: C REACTIVE PROTEIN QUANTITATIV 0.75 MG/DL (0.00-0.30)
--- NOTE | 2020-04-09 11:21 | DS.PDOC ---
Discharge Summary General Date of Admission Apr 09, 2020 at 01:17 Date of Discharge 04/09/2020 Discharge Summary PROCEDURES PERFORMED DURING STAY: [None]. ADMITTING DIAGNOSES / DISCHARGE DIAGNOSES: COVID19 Schizoaffective disorder Polysubstance abuse / IV drug use DVT prophylaxis COMPLICATIONS/CHIEF COMPLAINT: Presented to ER with nausea HISTORY OF PRESENT ILLNESS: Patient is a 35-year-old female with a PMHx of Schizoaffective disorder, Polysubstance abuse (Hx of Heroin, Benzodiazepines, Methamphetamine), Recent C. diff (s/p Treatment) who presented to the ER with agitation and nause a. Patient was found to be COVID-19 positive. Patient was alleged to have an ambulatory pulse oximeter of 91%. Hospital service was called for further evaluation and treatment. I have seen and examined this patient at the bedside. Currently, she denies any chest pain, shortness of breath, palpitations. Has not experience any nausea, vomiting, abdominal pain, has not experience any urinary discomfort, has not experience any diarrhea while inpatient. We have performed an ambulation pulse oximetry check and patient's saturation has not dropped below 95%. HOSPITAL COURSE: COVID19 - Patient does not have any evidence of shortness of breath or cough - Has been ambulating around the room without any difficulty - There does not appear to be any evidence of hypoxia has been ambulating in the room and saturations have not dropped below 95% - Physical is without any adventitious lung sounds - Will continue with supportive care - Outpatient follow with primary care provider within next 7 days - Will discharge home with services Schizoaffective disorder - Patient is not suicidal or homicidal - She is fully oriented to person, place and time and is aware of her medical conditions - c/w Amitriptyline, citalopram, levetiracetam, and risperidone Polysubstance abuse / IV drug use - Patient has reported the use of heroine, methamphetamine and benzodiazepine use - Has stopped the use of suboxone DVT prophylaxis - Was on Lovenox DISCHARGE MEDICATIONS: Please see below. ALLERGIES: Please see below. PHYSICAL EXAMINATION ON DISCHARGE: Vitals (See below) General: Sitting up in bed after ambulating in the room, appears very comfortable, talkative, AAOx3 HEENT: NC, AT CVS: RRR, +S1S2 Lungs: Fair air entry b/l, -w/r/r Abdomen: Soft, ND, NT Extremities: - Edema, - Calf tenderness LABORATORY DATA: Please see below. IMAGING: CXR 04/09: No acute findings. CT head 04/[address] ACTIVITY: [As tolerated]. DISCHARGE PLAN: Follow-up with primary care provider and oral surgeon within the next 7 days Remain compliant with treatment plan and medications Return to the ER if you experience any problems DISPOSITION: Home with services DISCHARGE CONDITION: [Stable]. TIME SPENT ON DISCHARGE: 35 minutes Vital Signs/I&Os Vital Signs Date Time Temp Pulse Resp B/P (MAP) Pulse Ox O2 Delivery O2 Flow Rate FiO2 04/09/20 08:00 98 Room Air 04/09/20 08:00 96.7 76 18 110/57 (74) Laboratory Data Labs 24H Laboratory Tests 2 04/09/20 02:46: SARS Antigen (LFIA) POSITIVEH 04/09/20 02:48: SARS Antigen (LFIA) POSITIVEH 04/09/20 03:02: Immature Granulocyte % (Auto) 0.5, Neutrophils (%) (Auto) 42.1, Lymphocytes (%) (Auto) 44.9H, Monocytes (%) (Auto) 11.2H, Eosinophils (%) (Auto) 0.8, Basophils (%) (Auto) 0.5, Neutrophils # (Auto) 1.6, Lymphocytes # (Auto) 1.7, Monocytes # (Auto) 0.4, Eosinophils # (Auto) 0.0, Basophils # (Auto) 0.0, Nucleated Red Blood Cells % (auto) 0.0, Anion Gap 9, Glomerular Filtration Rate > 60.0, Calcium Level 8.5, Total Bilirubin < 0.1L, Direct Bilirubin < 0.1, Aspartate Amino Transf (AST/SGOT) 31, Alanine Aminotransferase (ALT/SGPT) 31, Alkaline Phosphatase 65, Total Protein 7.8, Albumin 4.1, Albumin/Globulin Ratio 1.1L, Thyroid Stimulating Hormone (TSH) 1.020, Human Chorionic Gonadotropin, Qual NEGATIVE, Salicylates Level 2.5L, Acetaminophen Level 2.3L, Ethyl Alcohol Level < 0.003 04/09/20 03:34: Influenza A Immunofluorescence NEGATIVE, Influenza B Immunofluorescence NEGATIVE 04/09/20 04:31: POC pH (Misc Panel) 7.453H, POC Base Excess (Misc Panel) 5.0H, POC Saturated Percent O2 (Misc) 96, POC pO2 (Misc Panel) 77.0L, POC pCO2 (Misc Panel) 41.8, POC HCO3 (Misc Panel) 29.2H, POC Total CO2 (Misc Panel) 30.0H 04/09/20 09:44: Ferritin 117, C-Reactive Protein, Quantitative 0.75H CBC/BMP Laboratory Tests 04/09/20 03:02 Microbiology Microbiology 04/09/20 Blood Culture, Received Pending 04/09/20 Blood Culture, Received Pending 04/09/20 Group A Streptococcus Screen (CRISTI), Received Pending Discharge Medications Scheduled Amitriptyline HCl (Amitriptyline HCl) 50 Mg Tablet, 50 MG PO QHS, (Reported) Buprenorphine HCl/Naloxone HCl (Suboxone 8 mg-2 mg Sl Film) 1 Each Film, 2 STRIP SL DAILY, (Reported) Chlorhexidine Gluconate (Chlorhexidine Gluconate) 473 Ml Mouthwash, 15 ML SSP BID, (Reported) Citalopram Hydrobromide (Citalopram HBr) 20 Mg Tablet, 20 MG PO DAILY, (Reported) Doxepin HCl (Doxepin HCl) 25 Mg Capsule, 25 MG PO QHS, (Reported) Gabapentin (Gabapentin) 600 Mg Tablet, 600 MG PO TID, (Reported) Levetiracetam (Keppra) 1,000 Mg Tab, 1,000 MG PO BID, (Reported) Loratadine (Loratadine) 10 Mg Tablet, 10 MG PO DAILY, (Reported) Omeprazole (Omeprazole) 20 Mg Capsule.dr, 20 MG PO DAILY, (Reported) Risperidone (Risperidone) 3 Mg Tablet, 3 MG PO BID, (Reported) Scheduled PRN Clonidine HCl (Clonidine HCl) 0.2 Mg Tablet, 0.2 MG PO TID PRN for ANXIETY, (Reported) Ketorolac Tromethamine (Ketorolac Tromethamine) 10 Mg Tablet, 10 MG PO Q6H PRN for PAIN, (Reported) Sumatriptan Succinate (Imitrex) 50 Mg Tablet, 50 MG PO DAILY PRN for MIGRAINE, (Reported) Allergies Coded Allergies: Penicillins (Verified Allergy, Unknown, 01/09/20) dextroamphetamine (Verified Allergy, Unknown, 01/09/20) haloperidol (Verified Allergy, Unknown, 01/09/20) olanzapine (Verified Allergy, Unknown, 01/09/20) sulfamethoxazole (Verified Allergy, Unknown, 01/09/20) trimethoprim (Verified Allergy, Unknown, 01/09/20) ziprasidone (Verified Allergy, Unknown, 01/09/20) ibuprofen (Unverified Adverse Reaction, Unknown, 01/09/20) Prefers stronger meds JONELLE RUIZ MD Apr 09, 2020 11:21
[2020-04-09] MEDS ORDERED: DOXEPIN 25 MG CAP PO SCH (21:00)
[2020-04-09] MEDS ORDERED: AMITRIPTYLINE 50 MG TAB PO SCH (21:00)
--- NOTE | 2020-04-09 21:26 | ECGEPIP ---
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
== END 2020-04-09 12:10 | disposition home health service (06) ==
LOC: M ED 01:16 → M ED INP 01:17 → M 4MAIN 08:36
PROVIDERS: ADMIT Internal Medicine; ATTEND Internal Medicine
DX: U07.1 COVID-19 (principal); R06.09 Other forms of dyspnea; F25.9 Schizoaffective disorder, unspecified; F19.20 Other psychoactive substance dependence, uncomplicated; F41.9 Anxiety disorder, unspecified; F32.9 Major depressive disorder, single episode, unspecified; B18.2 Chronic viral hepatitis C; F17.218 Nicotine dependence, cigarettes, with other nicotine-induced disorders; Z79.899 Other long term (current) drug therapy; Z88.0 Allergy status to penicillin; Z88.8 Allergy status to other drugs, medicaments and biological substances; G43.909 Migraine, unspecified, not intractable, without status migrainosus
CPT/HCPCS: 36415; 36600; 71045; 80048; 80076; 80143; 82077; 82728; 82803; 84443; 84703; 85025; 86140; 87040; 87804; 87880; 93005; 94640; 96374; 99285; J2930

== ENCOUNTER 2020-04-10 14:38 | Emergency (ER) | payer OTHER ==
[~2020-04-10 14:38] MED LIST changes: +AMIT50TA PO; +DOXE25CA PO; +PATIENT COMMENT; +PERI12LIQ SSP; +RISP-10 PO
[2020-04-10] MEDS ORDERED: LORazepam 2 MG/ML VIAL IV STA (14:42)
--- OUTSIDE RECORDS SUMMARY | 2020-04-10 14:45 | CCD ---
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 12 Active confirmed 26285746 Problem Methamphetamine abuse F15.10 Active confirmed 389685338 Problem Opioid abuse F11.10 Active confirmed 5805545 Problem Opioid use disorder, severe, in sustained remission, on maintenance therapy F11.21 Active confirmed 563805069 Problem Cannabis abuse F12.10 Active confirmed 95616 009 Problem Gastroesophageal reflux disease, esophagitis pre sence not specified K21.9 Active confirmed 658208904 Problem BMI 30.0-30.9,adult Z68.30 Active confirmed 227005136 Problem Obesity (BMI 30.0-34.9) E66.9 Active confirmed 460463758135583 Problem Tongue sore K14.6 Active confirmed 06796245 Problem Binge eating disorder F50.81 Active confirmed 736433501 Problem Polysubstance abuse F19.10 Active confirmed 140051955 Problem Schizoaffective disorder F25.9 Active confirmed 80095332 Problem Tobacco dependence F17.200 Active confirmed 25032452 Problem Oropharyngeal dysphagia R13.12 Active confirmed 47328503 Problem Carpal tunnel syndrome, bilateral G56.03 Active confirmed 45674004717402571 Problem History of drug abuse F19.11 Active confirmed 467972512 ALLERGIES Allergen (clinical drug ingredient) Drug/Non Drug Allergy do cumented on EMR Reaction Allergy Type Onset Date Status haloperidol Haldol([facility] Code:[address]-18) Unknown Drug Allergy Active olanzapine Zyprexa([facility] Code:[address]-88) Unknown Drug Allergy Active amoxicillin Amoxicillin([facility] Code:[address]-38) Unknown Drug Aller gy Active penicillin G Penicillin G Sodium([facility] Code:[address]-90) Unknown D rug Allergy Active sulfamethoxazole / trimethoprim Bactrim([facility] Code:[address]-58) Unknown Drug Allergy Active Sulfacet-R Unknown Drug Allergy Active ENCOUNTERS from 1987 to 2020-04-08 Encounter Location Date Provider Diagnosis [address] [address] [place], Shira Ford IMMUNIZATIONS No Information SOCIAL [...] Information RESULTS No Results REASON FOR VISIT No Information MEDICAL (GENERAL) HISTORY Type Description Date Medical [...] for 30 day(s) Next Appt Details Provider Name:Nitza Box, 02:00:00 PM, [address] [place] [address], [id number], Provider Name:Aliyah Vazquez, 04-13 03:20:00 PM, [address] [place] [address], [id number], Provider Name:Jena Lawson, 2020-04-20 03:00:00 PM, [address] [place], [id number], Provider Name:Gasper Marquez, 04-23 02:00:00 PM, [address] [place] [address], [id number], Insurance Providers Payer Name Payer Address Payer Phone Insured Name Patient Relati onship to Insured Coverage Start Date Coverage End Date [employer] - [employer] [address] [facility] [address] Desire,Melissa self
--- OUTSIDE RECORDS SUMMARY | 2020-04-10 14:47 | CCD ---
Author Author [facility] Organization [facility] Address Unknown Phone Unavailable Care Team Providers Care Community Youth Secretary Name Role Phone Kori FLORES Unavailable Unavailable [...] Jeremie HOGAN MD Unavailable Unavailable JESICA, @ [facility] Unavailable Unavailable BEHZAD HOGAN MD Unavailable Unavailable Ching, Reginah W Kassidy CAR SEAT UPHOLSTERER-C Unavailable Unavailabl e Ching, Reginah W Kassidy CAR SEAT UPHOLSTERER-C Unavailable Unavailabl e Ching, Reginah W Kassidy CAR SEAT UPHOLSTERER-C Unavailable Unavailabl e Ching, Reginah W Kassidy CAR SEAT UPHOLSTERER-C Unavailable Unavailabl e Ching, Reginah W Kassidy CAR SEAT UPHOLSTERER-C Unavailable Unavailabl e Ching, Reginah W Kassidy CAR SEAT UPHOLSTERER-C Unavailable Unavailabl e Ching, Reginah W Kassidy CAR SEAT UPHOLSTERER-C Unavailable Unavailabl e Ching, Reginah W Kassidy CAR SEAT UPHOLSTERER-C Unavailable Unavailabl e Ching, Reginah W Kassidy CAR SEAT UPHOLSTERER-C Unavailable Unavailabl e Ching, Reginah W Kassidy CAR SEAT UPHOLSTERER-C Unavailable Unavailabl e Ching, Reginah W Kassidy CAR SEAT UPHOLSTERER-C Unavailable Unavailabl e Ching, Reginah W Kassidy CAR SEAT UPHOLSTERER-C Unavailable Unavailabl e Ching, Reginah W Kassidy CAR SEAT UPHOLSTERER-C Unavailable Unavailabl e Ching, Reginah W Kassidy CAR SEAT UPHOLSTERER-C Unavailable Unavailabl e Ching, Reginah W Kassidy CAR SEAT UPHOLSTERER-C Unavailable Unavailabl e Ching, Reginah W Kassidy CAR SEAT UPHOLSTERER-C Unavailable Unavailabl e Ching, Elijah Yi CAR SEAT UPHOLSTERER-C Unavailable Unavailabl e Ching, Elijah Yi CAR SEAT UPHOLSTERER-C Unavailable Unavailabl e Ching, Elijah Yi CAR SEAT UPHOLSTERER-C Unavailable Unavailabl e Ching, Elijah Yi CAR SEAT UPHOLSTERER-C Unavailable Unavailabl e Ching, Elijah Yi CAR SEAT UPHOLSTERER-C Unavailable Unavailabl e Ching, Elijah Yi CAR SEAT UPHOLSTERER-C Unavailable Unavailabl e Ching, Elijah Yi CAR SEAT UPHOLSTERER-C Unavailable Unavailabl e Ching, Elijah Yi CAR SEAT UPHOLSTERER-C Unavailable Unavailabl e Ching, Elijah Yi CAR SEAT UPHOLSTERER-C Unavailable Unavailabl e Ching, Elijah Yi CAR SEAT UPHOLSTERER-C Unavailable Unavailabl e Ching, Elijah Yi CAR SEAT UPHOLSTERER-C Unavailable Unavailabl e Ching, Elijah Yi CAR SEAT UPHOLSTERER-C Unavailable Unavailabl e Ching, Elijah Yi CAR SEAT UPHOLSTERER-C Unavailable Unavailabl e Ching, Elijah Yi CAR SEAT UPHOLSTERER-C Unavailable Unavailabl e Ching, Elijah Yi CAR SEAT UPHOLSTERER-C Unavailable Unavailabl e Ching, Elijah iY CAR SEAT UPHOLSTERER-C Unavailable Unavailabl e Lino Marie MD Unavailable [...] Unavailable Unavailable FrankLino jasmine MD Unavailable Unavailable Frnak, F Efmi MD Unavailable Unavailable Lino Marie MD Unavailable [...] Unavailable Unavailable MARI, CHAO MD Unavailable Unavailable MRAI, CHAO MD Unavailable Unavailable MARI, CHAO MD Unavailable Unavailable ONDINA RAMIREZ MD Unavailable Unavailable ONDINA RAMIREZ MD Unavailable Unavailable ONDINA RAMIREZ MD Unavailable Unavailable ONDINA RAMIREZ MD Unavailable Unavailable ONDINA RAMIREZ MD Unavailable Unavailable ONDINA RAMIREZ MD Unavailable Unavailable ONDINA RAMIREZ MD Unavailable Unavailable ONDINA RAMIREZ MD Unavailable Unavailable BROWN, L JANE Unavailable Unavailable DESJARLAIS, KAROLYN AD CLERK Unavailable Unavailable DESJARLAIS, KAROLYN AD CLERK Unavailable Unavailable DESJARLAIS, KAROLYN AD CLERK Unavailable Unavailable DESJARLAIS, KAROLYN AD CLERK Unavailable Unavailable DESJARLAIS, KAROLYN AD CLERK Unavailable Unavailable DESJARLAIS, KAROLYN AD CLERK Unavailable Unavailable DESJARLAIS, KAROLYN AD CLERK Unavailable Unavailable DESJARLAIS, KAROLYN AD CLERK Unavailable Unavailable DESJARLAIS, KAROLYN AD CLERK Unavailable Unavailable MAHESH RECINOS Unavailable Unavailable Lester, Mavis CAR SEAT UPHOLSTERER CAR SEAT UPHOLSTERER Unavailable Unavailable Lester, A Mavis CAR SEAT UPHOLSTERER Unavailable Unavailable Lester, A Mavis CAR SEAT UPHOLSTERER Unavailable Unavailable Lester, A Mavis CAR SEAT UPHOLSTERER Unavailable Unavailable Lester, A Mavis CAR SEAT UPHOLSTERER Unavailable Unavailable Lester, A Mavis CAR SEAT UPHOLSTERER Unavailable Unavailable Lester, A Mavis CAR SEAT UPHOLSTERER Unavailable Unavailable Lester, A Mavis CAR SEAT UPHOLSTERER Unavailable Unavailable Lester, A Mavis CAR SEAT UPHOLSTERER Unavailable Unavailable Lester, A Mavis CAR SEAT UPHOLSTERER Unavailable Unavailable Lester, A Mavis CAR SEAT UPHOLSTERER Unavailable Unavailable Lester, A Mavis CAR SEAT UPHOLSTERER Unavailable Unavailable Lester, A Mavis CAR SEAT UPHOLSTERER Unavailable Unavailable Lester, A Mavis CAR SEAT UPHOLSTERER Unavailable Unavailable Lester, A Mavis CAR SEAT UPHOLSTERER Unavailable Unavailable Lester, A Mavis CAR SEAT UPHOLSTERER Unavailable Unavailable Lester, A Mavis CAR SEAT UPHOLSTERER Unavailable Unavailable Lester, A Mavis CAR SEAT UPHOLSTERER Unavailable Unavailable Lester, A Mavis CAR SEAT UPHOLSTERER Unavailable Unavailable Lester, A Mavis CAR SEAT UPHOLSTERER Unavailable Unavailable Lester, A Mavis CAR SEAT UPHOLSTERER Unavailable Unavailable Lester, A Mavis CAR SEAT UPHOLSTERER Unavailable Unavailable Lester, A Mavis CAR SEAT UPHOLSTERER Unavailable Unavailable Lester, A Mavis CAR SEAT UPHOLSTERER Unavailable Unavailable Lester, A Mavis CAR SEAT UPHOLSTERER Unavailable Unavailable Lester, A Mavis CAR SEAT UPHOLSTERER Unavailable Unavailable Lester, A Mavis CAR SEAT UPHOLSTERER Unavailable Unavailable Lester, A Mavis CAR SEAT UPHOLSTERER Unavailable Unavailable Lester, A Mavis CAR SEAT UPHOLSTERER Unavailable Unavailable BLUM, KATRIN Unavailable Unavailable Re-disclosure [...] is protected by Article 27-F of the [facility] Public Health law. If you continue you may have access to information: Regarding HIV / AIDS; Provided by facilities licensed or operated by the [facility] Office of Mental Health; or Provided by the [facility] Office for People With Developmental Disabilities. If such information is present, then the following [facility] mandated warning applies: This information [...] allergy Drug allergy AMOXICLIIN SWELLING, HIVES R [facility] Drug allergy olanzapine ol[facility]apine [facility] Drug allergy trimethoprim trimethoprim "BLISTERS IN MOUTH" [facility] Drug allergy sulfamethoxazole sulfamethoxazole "BLISTERS IN MOUTH" [facility] Drug allergy haloperidol haloperidol [facility] Drug allergy Sulfa (Sulfonamide Antibiotics) Sulfa (Sulfonami de Antibiotics) "BLISTERS IN MOUTH" [facility] Drug allergy Penicillins Penicillins SWELLING, HIVES [facility] Encounters Encounter Providers Location Date Indications Data Source(s ) Outpatient Attender: FAHAD MOONEY 04/15/2020 09:45:0 0 AM [facility] Outpatient [facility] 04/08/2020 12:00:00 AM EST [facility] ([facility]) Outpatient [facility] 04/08/2020 12:00:00 AM EST eCW1 ([facility]) Outpatient [facility] 04/05/2020 12:00:00 AM EST eCW1 ([facility]) Outpatient Attender: NATHAN PAUL PA-C 03/30/2020 10:30:00 AM [facility] Outpatient Attender: Shira Youngblood PA-C 03/30/2020 10:18 :00 AM [facility] Outpatient [facility] 03/30/2020 12:00:00 AM EST eC1 ([facility]) Outpatient Attender: JANE EDWARD 03/23/2020 02:00:00 PM [facility] Outpatient Attender: JANE EDWARD 03/17/2020 10:30:00 AM [facility] Outpatient Attender: JANE EDWARD 03/11/2020 04:00:00 PM [facility] Preadmit Attender: FAHAD MOONEY 03/11/2020 06:30:0 0 AM [facility] Outpatient Attender: KAROLYN VAN NP 03/09/2020 03: 40:00 PM [facility] Outpatient [facility] 03/03/2020 12:00:00 AM EST eCW1 ([facility]) Outpatient Attender: Shira Becerraferrer: Shira Youngblood PA-C EMERGENCY ROOM-LAB 03/01/2020 04:49:00 PM EST - 03/01/2020 04:49:00 PM [facility] Outpatient Attender: Shira Youngblood PA-C 03/01/2020 03:45 :00 PM [facility] Outpatient [facility] 03/01/2020 12:00:00 AM EST eCW1 ([facility]) Outpatient [facility] 03/01/2020 12:00:00 AM EST eCW1 ([facility]) Outpatient Attender: KAROLYN VAN NP 02/18/2020 02: 40:00 PM [facility] Outpatient Attender: Kassidy SERRANO 02/18/2020 10:00:0 0 AM [facility] Outpatient [facility] 02/18/2020 12:00:00 AM EST eCW1 ([facility]) Outpatient [facility] 02/10/2020 12:00:00 AM EST eCW1 ([facility]) Outpatient [facility] 02/03/2020 12:00:00 AM EST eCW1 ([facility]) Outpatient [facility] 01/14/2020 12:00:00 AM EST eCW1 ([facility]) Outpatient [facility] 01/06/2020 12:00:00 AM EST eCW1 ([facility]) Outpatient Attender: JOHNATHON PATEL 01/02/2020 10:06:00 A [facility] Outpatient [facility] 01/02/2020 12:00:00 AM EST eCW1 ([facility]) Outpatient Attender: JANE EDWARD 01/01/2020 02:30:00 PM [facility] Outpatient Attender: KAROLYN VAN NP 12/24/2019 11: 00:00 AM [facility] Outpatient Attender: Shira Youngblood PA-C 12/24/2019 08:24 :00 AM EDT [facility] Outpatient [facility] 12/24/2019 12:00:00 AM EDT eCW1 ([facility]) Outpatient Attender: JANE EDWARD 12/23/2019 01:54:00 PM E [facility] Outpatient [facility] 12/23/2019 12:00:00 AM EDT eCW1 ([facility]) Outpatient Attender: Mavis DIEGO FP 12/12/2019 11:3 5:02 AM EDT [facility] Outpatient Attender: JANE EDWARD 12/11/2019 03:00:00 PM E DT [facility] Outpatient [facility] 12/09/2019 12:00:00 AM EDT eCW1 ([facility]) Outpatient Attender: Mavis DIEGO FP 12/05/2019 01:2 6:01 PM EDT [facility] Inpatient Attender: PRERNA RIOS MDAdmitter: PRERNA Hopson MD ER-3RD 12/05/2019 10:08:00 AM EDT - 12/10/2019 01:07:00 PM EDT [facility] Patient discharged. Outpatient Attender: NATHAN PAUL PA-C 12/05/2019 09:03:00 AM [facility] Admission cancelled. Disregard status an d admitted date. Inpatient Attender: BEHZAD HOGAN MD Attender: BEHZAD HOGAN MDAttender: DIOGENES BUENO MDAttender: DIOGENES BUENO MDAdmitter: BEHZAD HOGAN MD ER-ICU 12/04/2019 11:06:00 PM EDT - 12/05/2019 10:03:00 AM EDT [facility] Patient discharged. Emergency Attender: GINGER Salaser: Melissa Youngblood PA-C EMERGENCY ROOM-ER 12/04/2019 04:21:00 PM EDT - 12/04/2019 08:40:00 PM EDT [facility] Patient discharged. Outpatient Attender: KAROLYN VAN NP 12/04/2019 03: 11:00 PM T [facility] Outpatient Attender: Mavis DIEGO FP 11/29/2019 07:0 4:03 PM EDT [facility] Outpatient Attender: JOHNATHON PATEL 11/29/2019 07:04:01 P M EDT [facility] Outpatient Attender: Mavis PATEL 11/24/2019 12:2 9:00 PM EDT [facility] Emergency Attender: EVONNE HAGENConsultant: STAFF NON 11/07/2019 12:19:00 AM EDT - 11/07/2019 04:20:00 AM EDT [facility] Patient discharged. Outpatient [facility] 11/07/2019 12:00:00 AM EDT eCW1 ([facility]) Outpatient Attender: Mavis DIEGO FP 11/04/2019 02:2 6:02 PM EDT [facility] Outpatient Attender: KAROLYN VAN NP 11/04/2019 11: 40:00 AM EDT [facility] Outpatient Attender: Mavis DIEGO FP 11/02/2019 01:2 6:00 PM EDT [facility] Outpatient Attender: Mavis PATEL 10/31/2019 06:0 2:00 PM EDT [facility] Outpatient Attender: JOHNATHON DIEGO FP 10/31/2019 06:01:59 P M EDT [facility] Outpatient Attender: Mavis DIEGO FP 10/31/2019 06:0 1:03 PM EDT [facility] Outpatient Attender: JOHNATHON DIEGO FP 10/31/2019 06:01:01 P M EDT [facility] Outpatient Attender: Shira Youngblood PA-C 10/31/2019 09:06 :00 AM EDT [facility] Outpatient [facility] 10/31/2019 12:00:00 AM EDT eCW1 ([facility]) Outpatient Attender: JANE EDWARD 10/27/2019 11:00:00 AM E [facility] Outpatient Attender: KAROLYN VAN NP 10/21/2019 03: 20:00 PM EDT [facility] Emergency Attender: EVONNE Garzasultant: STAFF NON 10/09/2019 02:09:00 AM EDT - 10/09/2019 03:44:00 AM EDT [facility] Patient discharged. Outpatient Attender: KATRIN BLUM 10/06/2019 09:37:00 AM ED T [facility] Outpatient Attender: Mavis DIEGO FP 09/25/2019 04:0 9:01 PM EDT [facility] Outpatient Attender: Mavis PATEL 09/25/2019 04:0 7:59 PM EDT [facility] Outpatient Attender: JOHNATHON PATEL 09/23/2019 10:31:00 A M EDT [facility] Outpatient Attender: JOHNATHON TRUJILLOP FP 09/23/2019 10:30:01 A M EDT [facility] Outpatient Attender: JOHNATHON TRUJILLOP FP 09/23/2019 12:02:09 A M EDT [facility] Outpatient Attender: JOHNATHON TRUJILLOP FP 09/22/2019 05:44:02 P M EDT [facility] Outpatient Attender: Mavis TRUJILLOP FP 09/22/2019 05:4 2:59 PM EDT [facility] Outpatient Attender: JOHNATHON TRUJILLOP FP 09/22/2019 02:38:00 P M EDT [facility] Outpatient Attender: Mavis DIEGO FP 09/22/2019 12:0 5:01 PM EDT [facility] Outpatient Attender: JOHNATHON TRUJILLOP FP 09/22/2019 07:56:01 A M EDT [facility] Outpatient Attender: Mavis TRUJILLOP FP 09/16/2019 05:0 8:02 AM EDT [facility] Outpatient Attender: Mavis TRUJILLOP FP 09/14/2019 05:1 9:00 PM EDT [facility] Outpatient Attender: JOHNATHON TRUJILLOP FP 09/14/2019 05:19:00 P M EDT [facility] Outpatient Attender: Mavis TRUJILLOP FP 09/12/2019 11:5 3:00 AM EDT [facility] Outpatient Attender: Mavis DIEGO FP 09/10/2019 11:0 6:01 PM EDT [facility] Outpatient Attender: JOHNATHON TRUJILLOP FP 09/10/2019 11:06:01 P M EDT [facility] Outpatient Referrer: Femi Marie MD 08/15/2019 05:44:00 A M EDT [facility] Outpatient Attender: Mavis DIEGO FP 08/06/2019 09:5 2:01 AM EDT [facility] Outpatient Attender: JOHNATHON DIEGO FP 08/05/2019 07:41:16 P M EDT [facility] Outpatient Attender: Mavis TRUJILLOP FP 08/05/2019 09:2 3:03 AM EDT [facility] Outpatient Attender: JOHNATHON DIEGO FP 08/05/2019 09:23:01 A M EDT [facility] Outpatient Attender: KATRIN BLUM 08/04/2019 09:42:00 AM ED [facility] Outpatient Attender: Mavis DIEGO FP 08/01/2019 10:3 1:00 AM EDT [facility] Outpatient Attender: Mavis DIEGO FP 08/01/2019 10:2 7:02 AM EDT [facility] Outpatient Attender: JOHNATHON DIEGO FP 07/30/2019 11:31:01 A M EDT [facility] Outpatient Attender: KATRIN BLUM 07/07/2019 03:30:00 PM ED [facility] Outpatient Attender: Mavis DIEGO FP 07/04/2019 10:3 3:02 AM EDT [facility] Outpatient Attender: Mavis DIEGO FP 07/03/2019 01:5 2:01 PM EDT [facility] Outpatient Attender: Mavis DIEGO FP 07/02/2019 10:2 8:02 AM EDT [facility] Outpatient Attender: Mavis DIEGO FP 07/01/2019 09:5 7:00 AM EDT [facility] Outpatient Attender: JOHNATHON DIEGO FP 07/01/2019 08:57:00 A M EDT [facility] Outpatient Referrer: Femi Marie MD 07/01/2019 04:55:00 A M EDT [facility] Outpatient Attender: JOHNATHON DIEGO FP 06/30/2019 04:21:00 P M EDT [facility] Outpatient Attender: Mavis DIEGO FP 06/22/2019 06:0 1:59 PM EDT [facility] Outpatient Attender: Mavis DIEGO FP 06/17/2019 03:3 2:01 PM EDT [facility] Outpatient Attender: JOHNATHON DIEGO FP 05/27/2019 12:22:00 P M EDT [facility] Outpatient Attender: Mavis DIEGO FP 05/24/2019 11:3 7:01 PM EDT [facility] Outpatient Attender: JOHNATHON DIEGO FP 05/20/2019 12:36:01 P M EDT [facility] Outpatient Attender: JOHNATHON DIEGO FP 05/20/2019 11:56:00 A M EDT [facility] Outpatient Attender: JOHNATHON Batista CAR SEAT UPHOLSTERER 05/20/2019 11:42:01 A M EDT [facility] Outpatient Attender: JOHNATHON TRUJILLOP FP 05/01/2019 03:31:00 P M [facility] Outpatient Attender: Mavis Batista CAR SEAT UPHOLSTERERBANNER 04/28/2019 10:4 4:01 AM [facility] Outpatient Attender: KATRIN BLUM 04/21/2019 10:29:00 AM [facility] Outpatient Attender: JOHNATHON Batista CAR SEAT UPHOLSTERER 04/15/2019 12:44:01 P M [facility] Outpatient Attender: MAHESH RECINOS 02/24/2019 01:46:00 PM [facility] Outpatient Attender: JANE EDWARD 02/21/2019 10:00:00 AM [facility] Outpatient Attender: JOHNATHON Batista CAR SEAT UPHOLSTERERBANNER 02/18/2019 09:01:04 P M [facility] Outpatient Attender: MAHESH RECINOS 02/10/2019 02:18:00 PM [facility] Inpatient Attender: CHAO GUERRA MDAttdoug harjinder: PRERNA RIOS MDAdmitter: PRERNA RIOS MD ER-3RD 12/23/2018 04:01:00 PM EDT - 12/26/2018 01:22:00 PM T [facility] Patient discharged. Inpatient Attender: ONDINA RAMIREZ MDAdmitter: ONDINA RAMIREZ MD E R-ICU 12/19/2018 05:26:00 PM EDT - 12/23/2018 03:42:00 PM EDT [facility] Patient discharged. Emergency Attender: MATIAS MIKE EMERGENCY ROOM-ER 03:51:00 PM EDT - 12/19/2018 04:47:00 PM [facility] Patient discharged. Medications Medication Brand Name [...] {capsule_at_bedtime} active Doxepin HCl 25 MG eCW1 ([facility] jimena) Doxepin Hydrochloride 25 MG Oral Capsule Doxepin HCl 25 MG D oxepin HCl 25 MG 03/09/2020 12:00:00 AM EST 1.0 {capsule_at_bedtime} active Doxepin HCl 25 MG eCW1 ([facility] jimena) Doxepin Hydrochloride 25 MG Oral Capsule Doxepin HCl 25 MG D oxepin HCl 25 MG 03/09/2020 12:00:00 AM EST 1.0 {capsule_at_bedtime} active Doxepin HCl 25 MG eCW1 ([facility] jimena) Doxepin Hydrochloride 25 MG Oral Capsule Doxepin HCl 25 MG D oxepin HCl 25 MG 03/09/2020 12:00:00 AM EST 1.0 {capsule_at_bedtime} active Doxepin HCl 25 MG eCW1 ([facility] jimena) 8-2 mg 03/03/2020 12:00:00 AM [...] activ e Clonidine HCl 0.2 MG eCW1 ([facility]) Clonidine Hydrochloride 0.2 MG Oral Tablet Clonidine H Cl 0.2 MG Clonidine HCl 0.2 MG 12/24/2019 12:00:00 AM EDT 1.0 {tablet} activ e Clonidine HCl 0.2 MG eCW1 ([facility]) Clonidine Hydrochloride 0.2 MG Oral Tablet Clonidine H Cl 0.2 MG Clonidine HCl 0.2 MG 12/24/2019 12:00:00 AM EDT 1.0 {tablet} activ e Clonidine HCl 0.2 MG eCW1 ([facility]) Clonidine Hydrochloride 0.2 MG Oral Tablet Clonidine H Cl 0.2 MG Clonidine HCl 0.2 MG 12/24/2019 12:00:00 AM EDT 1.0 {tablet} activ e Clonidine HCl 0.2 MG eCW1 ([facility]) Clonidine Hydrochloride 0.2 MG Oral Tablet Clonidine H Cl 0.2 MG Clonidine HCl 0.2 MG 12/24/2019 12:00:00 AM EDT 1.0 {tablet} suspe nded Clonidine HCl 0.2 MG eCW1 ([facility]) Clonidine Hydrochloride 0.2 MG Oral Tablet Clonidine H Cl 0.2 MG Clonidine HCl 0.2 MG 12/24/2019 12:00:00 AM EDT 1.0 {tablet} activ e Clonidine HCl 0.2 MG eCW1 ([facility]) Clonidine Hydrochloride 0.2 MG Oral Tablet Clonidine H Cl 0.2 MG Clonidine HCl 0.2 MG 12/24/2019 12:00:00 AM EDT 1.0 {tablet} activ e Clonidine HCl 0.2 MG eCW1 ([facility]) Clonidine Hydrochloride 0.2 MG Oral Tablet Clonidine H Cl 0.2 MG Clonidine HCl 0.2 MG 12/24/2019 12:00:00 AM EDT 1.0 {tablet} activ e Clonidine HCl 0.2 MG eCW1 ([facility]) Clonidine Hydrochloride 0.2 MG Oral Tablet Clonidine H Cl 0.2 MG Clonidine HCl 0.2 MG 12/24/2019 12:00:00 AM EDT 1.0 {tablet} activ e Clonidine HCl 0.2 MG eCW1 ([facility]) Clonidine Hydrochloride 0.2 MG Oral Tablet Clonidine H Cl 0.2 MG Clonidine HCl 0.2 MG 12/24/2019 12:00:00 AM EDT 1.0 {tablet} activ e Clonidine HCl 0.2 MG eCW1 ([facility]) Clonidine Hydrochloride 0.2 MG Oral Tablet Clonidine H Cl 0.2 MG Clonidine HCl 0.2 MG 12/24/2019 12:00:00 AM EDT 1.0 {tablet} suspe nded Clonidine HCl 0.2 MG eCW1 ([facility]) Clonidine Hydrochloride 0.2 MG Oral Tablet Clonidine H Cl 0.2 MG Clonidine HCl 0.2 MG 12/24/2019 12:00:00 AM EDT 1.0 {tablet} activ e Clonidine HCl 0.2 MG eCW1 ([facility]) Clonidine Hydrochloride 0.2 MG Oral Tablet Clonidine H Cl 0.2 MG Clonidine HCl 0.2 MG 12/24/2019 12:00:00 AM EDT 1.0 {tablet} suspe nded Clonidine HCl 0.2 MG eCW1 ([facility]) Clonidine Hydrochloride 0.2 MG Oral Tablet Clonidine H Cl 0.2 MG Clonidine HCl 0.2 MG 12/24/2019 12:00:00 AM EDT 1.0 {tablet} activ e Clonidine HCl 0.2 MG eCW1 ([facility]) Clonidine Hydrochloride 0.2 MG Oral Tablet Clonidine H Cl 0.2 MG Clonidine HCl 0.2 MG 12/24/2019 12:00:00 AM EDT 1.0 {tablet} activ e Clonidine HCl 0.2 MG [facility]1 [facility] 300 mg 12/13/2019 12:00:00 AM EDT [...] {tablet_at_bedtime} active Clonazepam 0 .5 MG eCW1 ([facility]) Clonazepam 0.5 MG Oral Tablet Clonazepam 0.5 MG 11/04/2019 12:00:00 AM EDT 1.0 {tablet_at_bedtime} active Clonazepam 0 .5 MG eCW1 ([facility]) lisdexamfetamine dimesylate 50 MG Oral Capsule [Vyvans e] Vyvanse 50 MG Vyvanse 50 MG 11/04/2019 12:00:00 AM EDT 1.0 {capsule_in_the_morning} active Vyvanse 50 MG eCW1 ([facility]) Citalopram 20 MG Oral Tablet [Celexa] Celexa 20 MG Celexa 20 MG 11/04/2019 12:00:00 AM EDT 1.0 {tablet} active Ce elise 20 MG eCW1 ([facility]) Citalopram 20 MG Oral Tablet [Celexa] Celexa 20 MG Celexa 20 MG 11/04/2019 12:00:00 AM EDT 1.0 {tablet} active Ce elise 20 MG eCW1 ([facility]) lisdexamfetamine dimesylate 50 MG Oral Capsule [Vyvans e] Vyvanse 50 MG Vyvanse 50 MG 11/04/2019 12:00:00 AM EDT 1.0 {capsule_in_the_morning} active Vyvanse 50 MG eCW1 ([facility]) Citalopram 20 MG Oral Tablet [Celexa] Celexa 20 MG Celexa 20 MG 11/04/2019 12:00:00 AM EDT 1.0 {tablet} active Ce elise 20 MG eCW1 ([facility]) 75 mg 11/02/2019 12:00:00 AM EDT [...] 1.0 {tablet} active Risperdal 3 MG eCW1 ([facility]) Risperidone 3 MG Oral Tablet [Risperdal] Risperdal 3 MG Risp erdal 3 MG 07/07/2019 12:00:00 AM EDT 1.0 {tablet} active Risperdal 3 MG eCW1 ([facility]) Risperidone 3 MG Oral Tablet [Risperdal] Risperdal 3 MG Risp erdal 3 MG 07/07/2019 12:00:00 AM EDT 1.0 {tablet} active Risperdal 3 MG eCW1 ([facility]) Risperidone 3 MG Oral Tablet [Risperdal] Risperdal 3 MG Risp erdal 3 MG 07/07/2019 12:00:00 AM EDT 1.0 {tablet} active Risperdal 3 MG eCW1 ([facility]) Risperidone 2 MG Oral Tablet [Risperdal] Risperdal 2 MG Risp erdal 2 MG 07/07/2019 12:00:00 AM EDT 1.0 {tablet} active Risperdal 2 MG eCW1 ([facility]) Risperidone 3 MG Oral Tablet [Risperdal] Risperdal 3 MG Risp erdal 3 MG 07/07/2019 12:00:00 AM EDT 1.0 {tablet} active Risperdal 3 MG eCW1 ([facility]) Risperidone 3 MG Oral Tablet [Risperdal] Risperdal 3 MG Risp erdal 3 MG 07/07/2019 12:00:00 AM EDT 1.0 {tablet} active Risperdal 3 MG eCW1 ([facility]) Risperidone 3 MG Oral Tablet [Risperdal] Risperdal 3 MG Risp erdal 3 MG 07/07/2019 12:00:00 AM EDT 1.0 {tablet} active Risperdal 3 MG eCW1 ([facility]) Risperidone 2 MG Oral Tablet [Risperdal] Risperdal 2 MG Risp erdal 2 MG 07/07/2019 12:00:00 AM EDT 1.0 {tablet} active Risperdal 2 MG eCW1 ([facility]) Risperidone 3 MG Oral Tablet [Risperdal] Risperdal 3 MG Risp erdal 3 MG 07/07/2019 12:00:00 AM EDT 1.0 {tablet} active Risperdal 3 MG eCW1 ([facility]) Risperidone 3 MG Oral Tablet [Risperdal] Risperdal 3 MG Risp erdal 3 MG 07/07/2019 12:00:00 AM EDT 1.0 {tablet} active Risperdal 3 MG eCW1 ([facility]) Risperidone 3 MG Oral Tablet [Risperdal] Risperdal 3 MG Risp erdal 3 MG 07/07/2019 12:00:00 AM EDT 1.0 {tablet} active Risperdal 3 MG eCW1 ([facility]) Risperidone 3 MG Oral Tablet [Risperdal] Risperdal 3 MG Risp erdal 3 MG 07/07/2019 12:00:00 AM EDT 1.0 {tablet} active Risperdal 3 MG eCW1 ([facility]) Risperidone 3 MG Oral Tablet [Risperdal] Risperdal 3 MG Risp erdal 3 MG 07/07/2019 12:00:00 AM EDT 1.0 {tablet} active Risperdal 3 MG eCW1 ([facility]) Risperidone 3 MG Oral Tablet [Risperdal] Risperdal 3 MG Risp erdal 3 MG 07/07/2019 12:00:00 AM EDT 1.0 {tablet} active Risperdal 3 MG eCW1 ([facility]) Risperidone 2 MG Oral Tablet [Risperdal] Risperdal 2 MG Risp erdal 2 MG 07/07/2019 12:00:00 AM EDT 1.0 {tablet} active Risperdal 2 MG eCW1 ([facility]) Risperidone 3 MG Oral Tablet [Risperdal] Risperdal 3 MG Risp erdal 3 MG 07/07/2019 12:00:00 AM EDT 1.0 {tablet} active Risperdal 3 MG eCW1 ([facility]) Risperidone 3 MG Oral Tablet [Risperdal] Risperdal 3 MG Risp erdal 3 MG 07/07/2019 12:00:00 AM EDT 1.0 {tablet} active Risperdal 3 MG eCW1 ([facility]) 8-2 mg 06/27/2019 12:00:00 AM EDT film [address] PLACE TWO FILMS UNDER THE TONGUE EVERY DAY MAXIMUM DAILY DOSE = 2 PLACE TWO FILMS UNDER THE TONGUE EVERY D AY MAXIMUM DAILY DOSE = 2 SOLD: 06/27/2019 [facility] 400 mg 06/23/2019 12:00:00 AM EDT [...] BY MOUTH TWICE A DAY SOLD: 06/09/2019 [facility] 50 mg 06/06/2019 12:00:00 AM [...] MOUTH EVERY DAY WITH FOOD SOLD: 02/25/2019 [facility] 80 mg 02/25/2019 [...] type / Coverage type Policy ID Covered green party ID Covered green party's relationship to dick Policy Dick Plan Information [facility] COMMUNITY PL[facility] [id number] SP [id number] [facility] MEDICAID [id number] S [id number] [facility] [id number] S [id number] [facility] MEDICAID [id number] S [id number] [facility] MEDICAID [id number] S [id number] [facility](MCAID) O [id number] S [id number] Managed Care - [facility] Community Plan P [id number] S [id number] Medicaid S [id number] S [id number] [facility] [id number] SP [id number] [facility] OZZIE [id number] S [id number] UN COMMUNITY PLAN [facility] [id number] SP [id number] UN COMMUNITY PLAN XIX [id number] MEDICAID [id number] SP [id number] Managed Care - [facility] Community Plan P [id number] S [id number] MEDICAID [id number] S [id number] MEDICAID [id number] S [id number] MEDICAID PROF FEES [id number] S [id number] MEDICAID [id number] S [id number] [facility] [id number] S [id number] Medicaid S [id number] S [id number] Managed Care - Community Plan [facility] P [id number] S [id number] [facility] 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 [id number] SP [id number] Medicaid P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 00:19 Patient: [...] relieved by rest and mild pain reliever [id number] [employer]. [address] [place] [address]. All rights reserved. This information is not intended as asubstitute for professional medical care. Always follow your healthcare professional's instructions. You have been given the following additional information: Anxiety Reaction(Electronically signed by Evonne Hagen M.D. 11/07/2019 05:23) Name Value Range Interpretation Code Description Data [place] rce(s) Supporting Document(s) ID Date Data Source [id number] 11/07/2019 12:19:00 AM EDT [facility] 1 Clinical Report - Nurses [facility] Emergency Department [address] [place] [address] Phone #: ext- [phone] 11/07/2019 00:19 Patient: BRUNA LEE Sex: F : 1985 Age: 34yTRIAGEHistorian: EMS and patient.Triage time: 00:24 11/07/2019.Chief Complaint: NAUSEA and ("face swelling").Onset. (states that it has been going on all day.). ( states that she has been sleeping a lot and used Molly2 days ago. No Meth in 2 weeks.).Treatment [employer]:(Took her normal medications today.). --00:27 11/07/19 Meme [...] last month. 2 Clinical Report - Nurses [facility] Emergency Department [address] [place] [address] Phone #: ext- [phone] 11/07/2019 00:19 Patient: [...] pump. Allergies 3 Clinical Report - Nurses [facility] Emergency Department [address] [place] [address] Phone #: [phone] ext- [phone] 11/07/2019 00:19 Patient: BRUNA LEE Sex: F [...] patient is calm and resting quietly. ( [place] provided. Reassurance given to pt. Lights dimmed. [...] Mara Gonzalez R.N.DISPOSITION / DISCHARGE Departure time: 04:11/07/2019. Condition at departure: improved. Discharge instructions provided and reviewed with the patient. Patient verbalized understanding. Written instructions provided in Montenegrin. The patient was discharged by the physician. [...] rce(s) Supporting Document(s) ID Date Data Source [id number] 11/07/2019 12:19:00 AM EDT [facility] 1 Clinical Report - Physicians/Mid Levels [facility] Emergency Department [address] [place] [address] Phone #: ext- [phone] 11/07/2019 00:19 Patient: [...] no Meth in over 2 weeks; woke [employer] w face swelling and nausea, no other Sx, no withdrawal, ROS otw neg.; pt known at [facility] for multiple ER visits for [...] Repair. 2 Clinical Report - Physicians/Mid Levels [facility] Emergency Department [address] [place] [address] Phone #: ext- [phone] 11/07/2019 00:19 Patient: [...] (Reference) 3 Clinical Report - Physicians/Mid Levels [facility] Emergency Department [address] [place] [address] Phone #: ext- [phone] 11/07/2019 00:19 Patient: [...] Male GFR Interprentation 20-49 yrs >60 mL/min Kygaai21-16 yrs >56 mL/min Normal 60- 69 yrs >49 mL/min Normal 70-79yrs>42 mL/min Normal 80 and above >35 mL/min Normal Female GFRInterpretation 20-39 yrs >60 mL/min Normal 40-49 yrs >58 mL/minNormal 50-59 yrs >51 mL/min Normal 60-69 yrs >45 mL/min Normal 4 Clinical Report - Physicians/Mid Levels [facility] Emergency Department [address] [place] [address] Phone #: ext- [phone] 11/07/2019 00:19 Patient: BRUNA LEE Sex: F : 1985 Age: 97v24-76 yrs >39 mL/min Normal 80 and above >32 mL/min NormalBeta-HCG, Qual Serum: (JENN: 11/07/2019 02:15) ( [facility]07[facility] 03:20) Final results Test Result Flag Units (Reference) HCG SERUM QUAL NEGATIVE (NORMAL: NEGAT HCG SERUM QL REENTER NEGATIVE (NORMAL: NEGAT { KIT LOT # [id number] ){ KIT EXP [id number] ){ PROCEDURAL CONTROL VALID)CPK: (JENN: 11/07/2019 02:15) [...] PRESUMPTIVE POSITIVE CONFIRMATION WILL BE PERFORMED AT [facility].Urinalysis: (JENN: 11/07/2019 02:00) ( MsgRcvd 11/07/2019 02:28) [...] Indicate 5 Clinical Report - Physicians/Mid Levels [facility] Emergency Department [address] [place] [address] Phone #: ext- [phone] 11/07/2019 00:19 Patient: [...] was requested by: Evonne Hagen Reference #: [id number] Others' Prescriptions Patient Name: Bruna LeeBirth Date: 1985 Address: [address] [place], [place] [address]Sex: Female Rx Written Rx Dispensed Drug Quantity Days Supply Prescriber Name Payment Method Dispenser 10/28/2019 10/28/2019 buprenorphine-naloxone 8-2 mg sl film 56 28 MoehsJose J MD Medicaid [facility] 09/30/2019 09/30/2019 buprenorphine-naloxone 8-2 mg sl film 56 28 MoehsJose J MD Medicaid [facility] 08/28/2019 08/28/2019 buprenorphine-naloxone 8-2 mg sl film 56 28 MoehsJose J MD Medicaid [facility] 07/23/2019 07/29/2019 buprenorphine-naloxone 8-2 mg sl film 56 28 MoehsJose J MD Medicaid [facility] 06/27/2019 06/27/2019 buprenorphine-naloxone 8-2 mg sl film 56 28 MoehsJose J MD Medicaid [facility] 05/29/2019 05/30/2019 buprenorphine-naloxone 8-2 mg sl film 56 28 MoehsJose J MD Medicaid [facility] 05/01/2019 05/01/2019 buprenorphine-naloxone 8-2 mg sl film 56 28 MoehsJose J MD Medicaid [facility] 04/03/2019 04/04/2019 buprenorphine-naloxone 8-2 mg sl film 56 28 MoehsJose J MD Medicaid [facility] 03/06/2019 03/06/2019 buprenorphine-naloxone 8-2 mg sl film 56 28 MoehsJose J MD Medicaid [facility] 02/06/2019 02/06/2019 suboxone 12 mg-3 mg sl film 28 28 MoehJose J hopson MD Medicaid [facility] 01/08/2019 01/08/2019 suboxone 12 mg-3 mg sl film 28 28 MoehJose J hopson MD Medicaid [facility] 12/10/2018 12/10/2018 suboxone 8 mg-2 mg sl film 56 28 Jose J Mao MD Medicaid [facility] 11/12/2018 11/12/2018 [...] table. 6 Clinical Report - Physicians/Mid Levels [facility] Emergency Department [address] [place] [address] Phone #: ext- [phone] 11/07/2019 00:19 Patient: [...] Oral. 7 Clinical Report - Physicians/Mid Levels [facility] Emergency Department [address] [place] [address] Phone #: ext- [phone] 11/07/2019 00:19 Patient: [...] rce(s) Supporting Document(s) ID Date Data Source [id number] 11/07/2019 03:20:00 AM EDT [facility] Name Value Range Interpretation Code Description Data [place] rce(s) Supporting Document(s) HCG SERUM QUAL NEGATIVE NORMAL: NEGATIVE [facility] HCG SERUM QL REENTER NEGATIVE NORMAL: NEGATIVE [facility] { KIT LOT # [id number] ){ KIT EXP DATE 12-08-20 ){ PROCEDURAL CONTROL VALID ) ID Date Data Source [id number] 11/07/2019 03:15:00 AM EDT [facility] Name Value Range Interpretation Code Description Data [place] rce(s) Supporting Document(s) Creatine kinase [Enzymatic activity/volume] in Serum or Plasma 3 13 U/L 30 - 170 H [facility] ID Date Data Source [id number] 11/07/2019 03:14:00 AM EDT [facility] Name Value Range Interpretation Code Description Data [place] rce(s) Supporting Document(s) COMPREHENSIVE METABOLIC PANEL [facility] COMPREHENSIVE METABOLIC PANEL Sodium [Moles/volume] in Serum or Plasma 140 mEq/L 134 - 153 [facility] Potassium [Moles/volume] in Serum or Plasma 3.8 mEq/L 3.6 - 5.0 [facility] Chloride [Moles/volume] in Serum or Plasma 100 mEq/L 98 - 107 [facility] Carbon dioxide, total [Moles/volume] in Serum or Plasma 30 MEQ/L 22 - 30 [facility] Glucose [Mass/volume] in Serum or Plasma 98 MG/DL 65 - 110 [facility] BUN 14 MG/DL 7 - 21 [facility] Creatinine [Mass/volume] in Serum or Plasma 0.7 MG/DL 0.7 - 1.5 [facility] BUN/CREAT 20 8 - 27 [facility] al Protein [Mass/volume] in Serum or Plasma 5.9 G/DL 6.3 - 8.2 L [facility] Albumin [Mass/volume] in Serum or Plasma 3.6 G/DL 3.9 - 5.0 L [facility] Globulin [Mass/volume] in Serum by calculation 2.3 GM/DL 2.4 - 3.2 L [facility] A/G RATIO 1.6 0.8 - 2.0 [facility] Calcium [Mass/volume] in Serum or Plasma 9.2 MG/DL 8.4 - 10.2 [facility] Bilirubin.total [Mass/volume] in Serum or Plasma <0.7 MG/DL 0.2 - 1.3 [facility] Alkaline phosphatase [Enzymatic activity/volume] in Serum or Plasma 62 U/L 38 - 126 [facility] Aspartate aminotransferase [Enzymatic activity/volume] in Serum or Plasma 302 U/L 5 - 40 H [facility] Alanine aminotransferase [Enzymatic activity/volume] in Seru m or Plasma 125 U/L 7 - 56 H [facility] Anion gap 3 in Serum or Plasma 10.0 mmol/L 8.0 - 16.0 [facility] AGE 34 yrs [facility] Hospit al NON-AA GFR >60 mL/min [facility] Hosp ital AFR AMER GFR >60 mL/min [facility] Ho spital Male GFR In [...] >32 mL/min Normal ID Date Data Source [id number] 11/07/2019 02:27:00 AM EDT [facility] Name Value Range Interpretation Code Description Data [place] rce(s) Supporting Document(s) CBC W/AUTOMATED DIFF [facility] COMPLETE BLOOD COUNT Leukocytes [#/volume] in Blood by Automated count 8.3 10^3/uL 4.2 - 1 1.0 [facility] Erythrocytes [#/volume] in Blood by Automated count 3.87 10^6/uL 4. 20 - 5.40 L [facility] Hemoglobin [Mass/volume] in Blood 11.6 g/dL 12.0 - 16.0 L [facility] Hematocrit [Volume Fraction] of Blood by Automated count 36.0 % 3 7.0 - 47.0 L [facility] Erythrocyte mean corpuscular volume [Entitic volume] by Auto mated count 93.0 fL 81.0 - 101 [facility] Erythrocyte mean corpuscular hemoglobin [Entitic mass] by Automated count 30.0 pg 27.0 - 34.0 [facility] Erythrocyte mean corpuscular hemoglobin concentration [Mass/volume] by Automated count 32.2 g/dL 31.0 - 36.0 [facility] Erythrocyte distribution width [Ratio] by Automated count 13.3 % 11.5 - 14.5 [facility] Platelets [#/volume] in Blood by Automated count 271 10^3/uL 150 - 45 0 [facility] Platelet mean volume [Entitic volume] in Blood by Automated count 9.5 fL 7.4 - 10.4 [facility] Neutrophils/100 leukocytes in Blood by Automated count 82.6 % 37. 0 - 80.0 H [facility] Lymphocytes/100 leukocytes in Blood by Manual count 14.3 % 25.0 - 40.0 L [facility] Monocytes/100 leukocytes in Blood by Automated count 1.6 % 3.0 - 8.0 L [facility] Eosinophils/100 leukocytes in Blood by Automated count 0.8 % 0.0 - 7.0 [facility] Basophils/100 leukocytes in Blood by Automated count 0.2 % 0.0 - 2.5 [facility] %IG 0.5 % [facility]0 [facility] 0.0 % 0.0 - 0.0 [facility] al Neutrophils [#/volume] in Blood by Automated count 6.85 10^3/uL 2.00 - 6.90 [facility] Lymphocytes [#/volume] in Blood by Automated count 1.19 10^3/uL 0.60 - 3.40 [facility] Monocytes [#/volume] in Blood by Automated count 0.13 10^3/uL 0.00 - 0.90 [facility] Eosinophils [#/volume] in Blood by Automated count 0.07 10^3/uL 0.00 - 0.70 [facility] Basophils [#/volume] in Blood by Automated count 0.02 10^3/uL 0.00 - 0.20 [facility] #IG 0.04 10^3/uL 0.00 - 0.10 [facility] ospital #NRBC 0.00 10^3/uL 0.00 - 0.00 [facility] ospital MANUAL DIFF NOT INDICATED [facility] RBC MORPH NOT INDICATED [facility] Ho spital ID Date Data Source [id number] 11/07/2019 03:14:00 AM EDT [facility] Name Value Range Interpretation Code Description Data [place] rce(s) Supporting Document(s) DRUG SCREEN URINE [facility] URINE DRUG SCREEN Amphetamine [Presence] in Urine by Screen method PRESUMP POS LISANDRA L: NEGATIVE [facility] BARBITURATES NEGATIVE NORMAL: NEGATIVE [facility] BENZO NEGATIVE NORMAL: NEGATIVE [facility] COCAINE NEGATIVE NORMAL: NEGATIVE [facility] Tetrahydrocannabinol [Presence] in Urine NEGATIVE NORMAL: NEGATIVE [facility] OPIATES NEGATIVE NORMAL: NEGATIVE [facility] Phencyclidine [Presence] in Urine by Screen method NEGATIVE NOR MAL: NEGATIVE [facility] \\BLDo\\URINE DRUG SCR EEN INTERPRETATION\\BLDx\\ THE CUTOFFF LEVELS FOR DETECTION ARE FOLLOWS: AMPHETAMINES 1000 ng/ml BARBITUARATES 200 ng/ml BENZODIAZEPINES 100 ng/ml THC 50 ng/ml PHENCYCLIDINE 25 ng/ml OPIATES 300 ng/ml COCAINE 300 ng/ml ALL POSITIVES ARE CONSIDERED PRESUMPTIVE POSITIVE CONFIRMATION WILL BE PERFORMED AT PHYSICIAN REQUEST. ID Date Data Source [id number] 11/07/2019 02:27:00 AM EDT [facility] Name Value Range Interpretation Code Description Data [place] rce(s) Supporting Document(s) [facility] COL[facility] yellow NORMAL: Yellow [facility] ospital CLARITY clear NORMAL: Clear [facility] Ho spital Specific gravity of Urine by Test strip 1.020 1.001 - 1.030 [facility] pH 6 5 - 9 [facility] al Glucose [Mass/volume] in Urine by Test strip NORM NORMAL: Negat [facility] Bilirubin.total [Presence] in Urine by Test strip NEG NORMAL: Negative [facility] Ketones [Presence] in Urine by Test strip NEG NORMAL: Negative [facility] Protein [Mass/volume] in Urine by Test strip NEG NORMAL: Negat [facility] Nitrite [Presence] in Urine by Test strip NEG NORMAL: Negative [facility] BLOOD NEG NORMAL: Negative [facility] Leukocyte esterase [Presence] in Urine by Test strip NEG LISANDRA L: Negative [facility] Urobilinogen [Mass/volume] in Urine by Test strip 1 less kenna n 1.0 mg/dL [facility] MICROSCOPIC Not Indicate [facility] H ospital ID Date Data Source [id number] 10/30/2019 10:27:00 AM EDT [facility] Name Value Range Interpretation Code Description Data [place] rce(s) Supporting Document(s) BG FASTING 132 mg/dL 70-100 H [facility] TSH 0.526 microintl units/mL 0.358-3.740 N [facility] ID Date Data Source [id number] 10/30/2019 10:27:00 AM EDT [facility] Name Value Range Interpretation Code Description Data [place] rce(s) Supporting Document(s) HCT 37.6 % 36.0-47.0 N [facility] HGB 11.8 g/dL 12.0-15.5 L [facility] MCH 31.4 G/DL pg 32.0-36.5 L [facility] MCHC 29.9 PG % 27.0-33.0 N [facility] PLATELETS 209 10 10*3/mm3 150-450 N [facility] RBC 3.94 10 10*6/mm3 4.00-5.40 L [facility] RDW 12.6 % 11.5-14.5 N [facility] WBC TOTAL 4.5 4.0-10.0 N [facility] ID Date Data Source [id number] 10/13/2019 03:25:00 PM EDT [facility] Name Value Range Interpretation Code Description Data [place] rce(s) Supporting Document(s) HCT 40.7 % 36.0-47.0 N [facility] HGB 13.3 g/dL 12.0-15.5 N [facility] MCH 32.7 G/DL pg 32.0-36.5 N [facility] MCHC 30.4 PG % 27.0-33.0 N [facility] PLATELETS 288 10 10*3/mm3 150-450 N [facility] RBC 4.37 10 10*6/mm3 4.00-5.40 N [facility] RDW 12.4 % 11.5-14.5 N [facility] WBC TOTAL 8.7 4.0-10.0 N [facility] ID Date Data Source [id number] 10/09/2019 02:09:00 AM EDT [facility] 1 OrderSheet [facility] Emergency Department [address] [place] [address] Phone #: ext- [phone] 10/09/2019 02:08 Patient: BRNUA LEE Sex: F : 1985 Age: 34yWEIGHT:81.1 kg (M) HEIGHT:60 inches (S) BMI:34.9ALLERGIES: Penicillins, Sulfa AntibioticsCHIEF COMPLAINT: sore throatDIAGNOSIS: PharyngitisLAB ORDERSOrder Description Priority Entered Acknowledged InitialedRapid Strep Screen STAT 02:41 10/09/2019 03:00 Evonne Ruelas RN, M.D.;DIAGNOSTIC STUDY ORDERSOrder Description Priority Entered Acknowledged InitialedMEDICATION/IV/DRIP/FLUID ORDERSOrder Description Priority Entered Acknowledged InitialedIbuprofen 800 mg 03:29 10/09/2019 Ack'd: 03:34 Meme 03:39 Meme BlairPO X1 dose: 800 Evonne Hagen R.N., R.N.mg (NOW x1) Jeremie;GENERAL ORDERSOrder Description Priority Entered Acknowledged Initialed[Electronically signed by Evonne Hagen M.D. (03:51 10/09/2019)][Electronically signed by Meme Damon R.N. (07:29 10/09/2019)][Electronically locked by Meme Damon R.N. (07:29 10/09/2019)] Name Value Range Interpretation Code Description Data [place] rce(s) Supporting Document(s) ID Date Data Source [id number] 10/09/2019 02:09:00 AM EDT [facility] 1 Medication Reconciliation Report [facility] Emergency Department [address] [place] [address] Phone #: ext- [phone] 10/09/2019 02:08 Patient: [...] rce(s) Supporting Document(s) ID Date Data Source [id number] 10/09/2019 02:09:00 AM EDT [facility] 1 Medication Administration Record [facility] Emergency Department [address] [place] [address] Phone #: ext- [phone] 10/09/2019 02:08 Patient: BRUNA LEE Sex: F : 1985 Age: 34yWeight: 81.1 kgHeight/Length: 60 inBMI: 34.9ALLERGIES: Penicillins, Sulfa Antibiotics Date/Time Medication Administered Medication OrderedGiven IBUPROFEN [PO] Ibuprofen 800 mg PO X1 dose: 27983:39 10/09/2019 Dose: 800 mg Tablets PO mg (NOW x1)Meme Maldonado R.N. Name Value Range Interpretation Code Description Data [place] rce(s) Supporting Document(s) ID Date Data Source [id number] 10/09/2019 02:09:00 AM EDT [facility] 1 General Instructions [facility] Emergency Department [address] [place] [address] Phone #: ext- [phone] 10/09/2019 02:08 Patient: [...] INFORMATIONViral Pharyngitis (Sore Throat) 2 General Instructions [facility] Emergency Department [address] [place] [address] Phone #: ext- [phone] 10/09/2019 02:08 Patient: [...] glass of warm water. 3 General Instructions [facility] Emergency Department [address] [place] [address] Phone #: ext- [phone] 10/09/2019 02:08 [id number] Sex[facility] F : 1985 Age: 34y Children [...] breathing or noisy breathing 4 General Instructions [facility] Emergency Department [address] [place] [address] Phone #: ext- [phone] 10/09/2019 02:08 Patient: BRUNA LEE Sex: F : 1985 Age: 34y Muffled voice New rash Other symptoms are getting worse [id number] [employer]. [address] [place] [address]. All rights reserved. This information is not intended as asubstitute for professional medical care. Always follow your healthcare professional's instructions. You have been given the following additional information: Pharyngitis, Viral(Electronically signed by Evonne Hagen M.D. 10/09/2019 03:51) Name Value Range Interpretation Code Description Data [place] rce(s) Supporting Document(s) ID Date Data Source [id number] 10/09/2019 02:09:00 AM EDT [facility] 1 Clinical Report - Nurses [facility] Emergency Department [address] [place] [address] Phone #: ext- [phone] 10/09/2019 02:08 Patient: BRUNA LEE Sex: F : 1985 Age: 34yTRIAGEHistorian: EMS and patient.Triage time: 02:08 10/09/2019.Chief Complaint: SORE THROAT.This started just prior to arrival. 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 (arthritis kind).EMS Treatment GRADES 7 AND 8 VISITING TEACHER:See EMS report.SEPSIS SCREEN: SIRS Screen: heart rate greater than 90. Sepsis Screen negative. No suspected orconfirmed signs of infection present. --02:14 10/09/19 Meme Maldonado R.N.02:11 10/09/19. BP: 130/86. MAP: 100. HR: 105. RR: 18. O2 saturation: 100%. Temp: 98.5 F. Pain levelnow: 12/05. --02:14 10/09/19 Meme Maldonado R.N.Treatment GRADES 7 AND 8 VISITING TEACHER:(Seen at [facility] for this issue within the [...] Maldonado R.N.AllergiesPenicillins.(hives) 2 Clinical Report - Nurses [facility] Emergency Department [address] [place] [address] Phone #: ext- [phone] 10/09/2019 02:08 Patient: [...] Dental decay. 3 Clinical Report - Nurses [facility] Emergency Department [address] [place] [address] Phone #: ext- [phone] 10/09/2019 02:08 Patient: [...] Patient verbalized understanding. Written instructions provided in Montenegrin. The patient was discharged by the physician. [...] rce(s) Supporting Document(s) ID Date Data Source [id number] 10/09/2019 02:09:00 AM EDT [facility] 1 Clinical Report - Physicians/Mid Levels [facility] Emergency Department [address] [place] [address] Phone #: ext- [phone] 10/09/2019 02:08 Patient: [...] (per EMS, pt is well known to [facility] ER for multiple ER visits for multiple somatic and psychiatric complaints; tonight, she complains of sore throat, hoarse voice, bugs on her skin, etc.; pt has therapist in [place]). Similar symptoms previously. Patient has had similar [...] Medications: 2 Clinical Report - Physicians/Mid Levels [facility] Emergency Department [address] [place] [address] Phone #: ext- [phone] 10/09/2019 02:08 Patient: [...] PROCEDURAL CONTROL VALID ){ KIT LOT # [id number] ){ KIT EXP DATE 905767 )The 3 Clinical Report - Physicians/Mid Levels [facility] Emergency Department [address] [place] [address] Phone #: ext- [phone] 10/09/2019 02:08 Patient: [...] Utilization ReportSearch Terms: bruna lee 1985Search Date: 10/09/2019 02:19:15 AMThe Drug Utilization Report below displays all of the controlled substance prescriptions, if any, that yourpatient has filled in the last twelve months. The information displayed on this report is compiled frompharmacy submissions to the Department, and accurately reflects the information as submitted by [facility]. This report was requested by: Evonne Hagen Reference #: [id number] Others' Prescriptions Patient Name: Bruna LeeBirth Date: 1985 Address: [address] [place], [place] [address]Sex: Female Rx Written Rx Dispensed Drug Quantity Days Supply Prescriber Name Payment Method Dispenser 09/30/2019 09/30/2019 buprenorphine-naloxone 8-2 mg sl film 56 28 MoehJose J hopson MD Medicaid [facility] 08/28/2019 08/28/2019 buprenorphine-naloxone 8-2 mg sl film 56 28 MoehsJose J MD Medicaid [facility] 07/23/2019 07/29/2019 buprenorphine-naloxone 8-2 mg sl film 56 28 MoehsJose J MD Medicaid [facility] 06/27/2019 06/27/2019 buprenorphine-naloxone 8-2 mg sl film 56 28 MoehsJose J MD Medicaid [facility] 05/29/2019 05/30/2019 buprenorphine-naloxone 8-2 mg sl film 56 28 MoehJose J hopson MD [facility] 05/01/2019 05/01/2019 buprenorphine-naloxone 8-2 mg sl film 56 28 MoehsJose J MD Medicaid [facility] 04/03/2019 04/04/2019 [...] 8 mg-2 mg sl film 56 28 MoehJose J hopson MD Medicaid [facility] 4 Clinical Report - Physicians/Mid Levels [facility] Emergency Department [address] [place] [address] Phone #: jix- [phone] 10/09/2019 02:08 Patient: BRUNA LEE [facility]#: [id number] Sex: F : 1985 Age: 34y 11/12/2018 [...] unknown*. 5 Clinical Report - Physicians/Mid Levels [facility] Emergency Department [address] [place] [address] Phone #: ext- [phone] 10/09/2019 02:08 Patient: [...] Name Value Range Interpretation Code Description Data [facility] rce(s) Supporting Document(s) ID Date Data Source [id number] 10/09/2019 03:02:00 AM EDT [facility] Name Value Range Interpretation Code Description Data [facility](s) Supporting Document(s) RAPID STREP NEGATIVE NORMAL: NEGATIVE [facility] RAPID STREP REENTER NEGATIVE NORMAL: NEGATIVE [facility] { PROCEDURAL CONTROL VALID ){ KIT LOT # [id number] ){ KIT EXP DATE 759132 )The Strep A 2 assay utilizes isothermal [...] basis for treatment. ID Date Data Source [id number] 09/22/2019 02:34:28 PM EDT [facility] Measurements & CalculationsHeight: 61 inches [...] (ER) or urgent care clinic? Yes - [facility] Have you seen another healthcare provider? Yes - [facility] Have you seen a dentist? NoIntake [...] and this is different. Sees [facility] for her mental health issues (schizophrenia) and feels that this is going well.HPI performed by: Francesco Ritchie MD, September 22, 2019 2:52 PMTransitions of Care InboundProblem ReviewProblem List was reviewed and/or updated during this visit.Medication Reconciliation & ReviewMedication List was reviewed and/or updated during this visit, including review of any tqot-nou-cbifqhy medications, herbal therapies, and/or supplements.Allergy ReviewAllergy List [...] Plan Problems:Added: Hematemesis - cause unknown (ICD-578.0) (IDP51-P77.0) Assessment: Instructions: Currently asymptomatic but worrisome enough to warrant further workup.Avoid NSAIDs and refer to GI.Return to ER if this occurs again.Assessed:Peripheral neuropathy (ICD-356.9) (LCC41-G79.9) Assessment: Instructions: I am not sure where [...] (Critical)Orders:Adult - Ofc Vst, EST, Level III [CPT-25391] Gastroenterology Consult [CPT-21038] Medications:GABAPENTIN 400 MG ORAL CAPSULE (GABAPENTIN) take one tablet by mouth three times daily as needed #90[Capsule] x 0 Route:ORAL Entered and Authorized by: Francesco Ritchie MD Method used: Electronically to [facility] (retail) [address] [place] [address] Note to Pharmacy: Route: ORAL; Indications: PERIPHERAL NEUROPATHY;BILATERAL CARPAL TUNNEL SYNDROME RxID: [id number] 1000 MG ORAL TABLET (LEVETIRACETAM) 1 pill po bid #60[Tablet] x 0 Route:ORAL Entered and Authorized by: Francesco Ritchie MD Method used: Electronically to [facility] (retail) [address] [place] [address] Note to Pharmacy: Route: ORAL; RxID: [id number] SUCCINATE 50 MG ORAL TABLET (SUMATRIPTAN SUCCINATE) take one tab po at the onset of headache. may repeat dose x one if no releif after two hours. #15[Tablet] x 0 Entered and Authorized by: Francesco Ritchie MD Method used: Electronically to [facility] (retail) [address] [place] [address] RxID: [id number] OMEPRAZOLE 20 MG ORAL TABLET DELAYED RELEASE (OMEPRAZOLE) One tablet by mouth every day #30[Tablet] x 2 Route:ORAL Entered and Authorized by: Francesco Ritchie MD Method used: Electronically to [facility] (retail) [address] [place] [address] Note to Pharmacy: Route: ORAL; RxID: [id number] DOXYCYCLINE MONOHYDRATE 100 MG ORAL TABLET (DOXYCYCLINE MONOHYDRATE) take one tablet by mouth twice daily x 5 days #10[Tablet] x 0 Route:ORAL Entered by: Demetria Elliott MA Authorized by: Mavis DIEGO Method used: Electronically to [facility] (retail) [address] [place] [address] RxID: [id number] signed by Francesco Ritchie MD on 09/22/2019 at 5:42 PM Name Value Range Interpretation Code Description Data [place] rce(s) Supporting Document(s) ID Date Data Source [id number] 09/10/2019 10:45:00 PM EDT [facility] Name Value Range Interpretation Code Description Data [place] rce(s) Supporting Document(s) BG FASTING 96 mg/dL 70-100 N [facility] ID Date Data Source [id number] 09/10/2019 10:45:00 PM EDT [facility] Name Value Range Interpretation Code Description Data [place] rce(s) Supporting Document(s) HCT 37.4 % 36.0-47.0 N [facility] HGB 12.1 g/dL 12.0-15.5 [facility] MCH 32.4 G/DL pg 32.0-36.5 [facility] MCHC 30.2 PG % 27.0-33.0 [facility] PLATELETS 244 10 10*3/mm3 150-450 [facility] RBC 4.01 10 10*6/mm3 4.00-5.40 [facility] RDW 12.8 % 11.5-14.5 [facility] WBC TOTAL 4.9 4.0-10.0 [facility] ID Date Data Source [id number] 05/20/2019 11:42:55 AM EDT [facility] Measurements & CalculationsHeight: 61 inches [...] you seen another healthcare provider? Yes - [facility] Have you seen a dentist? NoRate [...] during this visit, including review of any jhta-npk-csxqztc medications, herbal therapies, and/or supplements.Allergy ReviewAllergy List [...] Problems:Added: Phlebitis and thrombophlebitis of unspecified site (KXX15-P50.9): right AC and right tibia Assessment: Instructions: May continue warm compresses 3-4 times daily as needed. Please try to keep extremities elevated. We have sent a prescription to your pharmacy today. Please take medication as prescribed. Please report any major side effects.Phlebitis and thrombophlebitis of unspecified site (ZPP88-V67.9): right AC and right tibia Assessment: right foot and right forearmAssessed:Tobacco use (ICD-305.1) (MSE86-T77.0) Assessment: Instructions: Please continue to try to quit smoking.Health Screening (ICD-V70.0) (PYG27-P10.9) Assessment: Instructions: Fasting labs ordered for you today. Please return prior to your next visit to have labs drawn. Please fast for 8-10 hours prior.Substance abuse (ICD-305.90) (QWF24-W01.10) Assessment: Instructions: Please try to avoid the [...] (Critical)BACTRIM (Critical)* SULFA ANTIBIOTICS (Critical)Orders:COMP METABOLIC PANEL [CPT-75453] CBC W/DIFF [CPT- 58202] HgBA1c [CPT-81749] LIPID PANEL [CPT-99940] TSH [CPT-96684] T-4 free [CPT- 47269] Vitamin D 250H Unspecified [CPT-32477] URINALYSIS [CPT-85344] VITAMIN B- 12 [CPT-30280] Folate (Folic Acid Serum) [CPT-43826] IRON [CPT-05066] Adult - Ofc Vst, EST, Level III [CPT-18107] Follow-Up Return to clinic: 2-3 weeks for follow up Additional Follow-Up: If symptoms worsen, please return to clinic or the ERClinical Visit Summary CompletedMedications:DOXYCYCLINE MONOHYDRATE 100 MG ORAL TABLET (DOXYCYCLINE MONOHYDRATE) take one tablet by mouth twice daily x 5 days #10[Tablet] x 0 Route:ORAL Entered and Authorized by: Mavis DIEGO Method used: Electronically to [facility] (retail) [address] [place] [address] Note to Pharmacy: Route: ORAL; Indications: PHLEBITIS AND THROMBOPHLEBITIS OF UNSPECIFIED SITE RxID: [id number] signed by Mavis DIEGO on 05/24/2019 at 11:37 PM ____ Name Value Range Interpretation Code Description Data [place] rce(s) Supporting Document(s) Procedure Social History Code Duration Value Status Description Data Source(s ) Smoking 03/30/2020 12:00:00 AM EST Current Smoker completed Curre nt Smoker eCW1 ([facility]) Smoking 03/30/2020 12:00:00 AM EST Current Smoker completed Curre nt Smoker eCW1 ([facility]) Smoking 03/30/2020 12:00:00 AM EST Current Smoker completed Curre nt Smoker eCW1 ([facility]) Smoking 03/30/2020 12:00:00 AM EST Current Smoker completed Curre nt Smoker eCW1 ([facility]) Smoking 03/01/2020 12:00:00 AM EST Current Smoker completed Curre nt Smoker eCW1 ([facility]) Smoking 03/01/2020 12:00:00 AM EST Current Smoker completed Curre nt Smoker eCW1 ([facility]) Smoking 03/01/2020 12:00:00 AM EST Current Smoker completed Curre nt Smoker eCW1 ([facility]) Smoking 02/18/2020 12:00:00 AM EST Current Smoker completed Curre nt Smoker eCW1 ([facility]) Smoking 12/24/2019 12:00:00 AM EDT Current Smoker completed Curre nt Smoker eCW1 ([facility]) Smoking 12/24/2019 12:00:00 AM EDT Current Smoker completed Curre nt Smoker eCW1 ([facility]) Smoking 12/24/2019 12:00:00 AM EDT Current Smoker completed Curre nt Smoker eCW1 ([facility]) Smoking 12/24/2019 12:00:00 AM EDT Current Smoker completed Curre nt Smoker eCW1 ([facility]) Smoking 12/24/2019 12:00:00 AM EDT Current Smoker completed Curre nt Smoker eCW1 ([facility]) Smoking 12/24/2019 12:00:00 AM EDT Current Smoker completed Curre nt Smoker eCW1 ([facility]) Smoking 12/24/2019 12:00:00 AM EDT Current Smoker completed Curre nt Smoker eCW1 ([facility]) Smoking 10/31/2019 12:00:00 AM EDT Current Smoker completed Curre nt Smoker eCW1 ([facility]) Smoking 10/31/2019 12:00:00 AM EDT Current Smoker completed Curre nt Smoker eCW1 ([facility]) Smoking 10/31/2019 12:00:00 AM EDT Current Smoker completed Curre nt Smoker eCW1 ([facility]) Vital Signs ID Date Data Source UNK Name Value Range Interpretation Code Description Data Source(s) Oxygen saturation in Arterial blood by Pulse oximetry 98 % 98 % eCW1 ([facility]) Respiratory rate 18 /min 18 /min eCW1 ([facility]) Heart rate 119 /min 119 /min eCW1 ([facility]) Body mass index (BMI) [Ratio] 35.74 kg/m2 35.74 kg/m2 eCW1 ([facility]) Body weight 183.0 [lb_av] 183.0 [lb_av] eCW1 ([facility]) Body height 60.0 [in_i] 60.0 [in_i] eCW1 ([facility]) Oxygen saturation in Arterial blood by Pulse oximetry 99 % 99 % eCW1 ([facility]) Respiratory rate 18 /min 18 /min eCW1 ([facility]) Heart rate 93 /min 93 /min eCW1 ([facility]) Body mass index (BMI) [Ratio] 35.27 kg/m2 35.27 kg/m2 eCW1 ([facility]) Body weight 180.6 [lb_av] 180.6 [lb_av] eCW1 ([facility]) Body height 60 [in_i] 60 [in_i] eCW1 ([facility]) Oxygen saturation in Arterial blood by Pulse oximetry 97 % 97 % eCW1 ([facility]) Respiratory rate 18 /min 18 /min eCW1 ([facility]) Heart rate 89 /min 89 /min eCW1 ([facility]) Body mass index (BMI) [Ratio] 36.48 kg/m2 36.48 kg/m2 eCW1 ([facility]) Body weight 186.8 [lb_av] 186.8 [lb_av] eCW1 ([facility]) Body height 60 [in_i] 60 [in_i] eCW1 ([facility]) Body height 60 [in_i] 60 [in_i] eCW1 ([facility]) Oxygen saturation in Arterial blood by Pulse oximetry 98 % 98 % eCW1 ([facility]) Respiratory rate 18 /min 18 /min eCW1 ([facility]) Heart rate 86 /min 86 /min eCW1 ([facility]) Body temperature 98.0 [degF] 98.0 [degF] eCW1 ( [facility]) Body mass index (BMI) [Ratio] 32.10 kg/m2 32.10 kg/m2 eCW1 ([facility]) Body weight 164.4 [lb_av] 164.4 [lb_av] eCW1 ([facility]) Oxygen saturation in Arterial blood by Pulse oximetry 99 % 99 % eCW1 ([facility]) Respiratory rate 18 /min 18 /min eCW1 ([facility]) Heart rate 100 /min 100 /min eCW1 ([facility]) Body temperature 98.7 [degF] 98.7 [degF] eCW1 ( [facility]) Body mass index (BMI) [Ratio] 30.70 kg/m2 30.70 kg/m2 eCW1 ([facility]) Body weight 157.2 [lb_av] 157.2 [lb_av] eCW1 ([facility]) Body height 60 [in_i] 60 [in_i] eCW1 ([facility]) ID Date Data Source [id number] 12/26/2019 01:56:00 PM EDT [facility] Name Value Range Interpretation Code Description Data Source(s) WEIGHT 72.3 kilos 72.3 kilos [facility] HEIGHT 152.4 centimeters 152.4 centimeters [facility] WEIGHT 75 kilos 75 kilos [facility] HEIGHT 152.4 centimeters 152.4 centimeters [facility] ID Date Data Source [id number] 12/10/2019 06:07:00 AM EDT [facility] Name Value Range Interpretation Code Description Data Source(s) WEIGHT 68 kilos 68 kilos [facility] HEIGHT 152.4 centimeters 152.4 centimeters [facility] WEIGHT 68.4 kilos 68.4 kilos [facility] HEIGHT 152.4 centimeters 152.4 centimeters [facility] ID Date Data Source [id number] 12/08/2019 01:43:00 PM EDT [facility] Name Value Range Interpretation Code Description Data Source(s) WEIGHT 75 kilos 75 kilos [facility] HEIGHT 152.4 centimeters 152.4 centimeters [facility] ID Date Data Source [id number] 12/08/2019 01:43:00 [facility] Name Value Range Interpretation Code Description Data Source(s) WEIGHT 74 kilos 74 kilos [facility] HEIGHT 160.02 centimeters 160.02 centimeter s [facility] Patient Treatment Plan of Care Planned Activity Planned Date Details Description Data Source (s) Doxepin Hydrochloride 25 MG Oral Capsule 03/09/2020 12:00:00 AM EST eCW1 ([facility]) Doxepin Hydrochloride 25 MG Oral Capsule 03/09/2020 12:00:00 AM EST eCW1 ([facility]) Doxepin Hydrochloride 25 MG Oral Capsule 03/09/2020 12:00:00 AM EST eCW1 ([facility]) Clonidine Hydrochloride 0.2 MG Oral Tablet 12/24/2019 12:00:00 AM E DT eCW1 ([facility]) Clonidine Hydrochloride 0.2 MG Oral Tablet 12/24/2019 12:00:00 AM E DT eCW1 ([facility]) Clonidine Hydrochloride 0.2 MG Oral Tablet 12/24/2019 12:00:00 AM E DT eCW1 ([facility]) Clonidine Hydrochloride 0.2 MG Oral Tablet 12/24/2019 12:00:00 AM E DT eCW1 ([facility]) Clonidine Hydrochloride 0.2 MG Oral Tablet 12/24/2019 12:00:00 AM E DT eCW1 ([facility]) Clonidine Hydrochloride 0.2 MG Oral Tablet 12/24/2019 12:00:00 AM E DT eCW1 ([facility]) Clonidine Hydrochloride 0.2 MG Oral Tablet 12/24/2019 12:00:00 AM E DT eCW1 ([facility]) lisdexamfetamine dimesylate 50 MG Oral Capsule [Vyvans e] 11/04/2019 12:00:00 AM EDT eCW1 ([facility]) Clonazepam 0.5 MG Oral Tablet 11/04/2019 12:00:00 AM EDT eCW1 ([facility]) Citalopram 20 MG Oral Tablet [Celexa] 11/04/2019 12:00:00 AM EDT eCW1 ([facility]) Risperidone 3 MG Oral Tablet [Risperdal] 07/07/2019 12:00:00 AM EDT eCW1 ([facility]) Risperidone 3 MG Oral Tablet [Risperdal] 07/07/2019 12:00:00 AM EDT eCW1 ([facility]) Risperidone 2 MG Oral Tablet [Risperdal] 07/07/2019 12:00:00 AM EDT eCW1 ([facility]) Risperidone 2 MG Oral Tablet [Risperdal] 07/07/2019 12:00:00 AM EDT eCW1 ([facility]) Risperidone 3 MG Oral Tablet [Risperdal] 07/07/2019 12:00:00 AM EDT eCW1 ([facility])
--- OUTSIDE RECORDS SUMMARY | 2020-04-10 14:59 | CCD ---
Author Author [facility] Organization [facility] Address Unknown Phone Unavailable Care Team Providers Care Slate Splitter Name Role Phone Kori FLORES Unavailable Unavailable [...] Jeremie HOGAN MD Unavailable Unavailable JESICA, @ [facility] Unavailable Unavailable BEHZAD HOGAN MD Unavailable Unavailable Hcing, Reginah W Kassidy TRIPPER-C Unavailable Unavailabl e Ching, Reginah W Kassidy TRIPPER-C Unavailable Unavailabl e Ching, Reginah W Kassidy TRIPPER-C Unavailable Unavailabl e Ching, Reginah W Kassidy TRIPPER-C Unavailable Unavailabl e Ching, Reginah W Kassidy TRIPPER-C Unavailable Unavailabl e Ching, Reginah W Kassidy TRIPPER-C Unavailable Unavailabl e Ching, Reginah W Kassidy TRIPPER-C Unavailable Unavailabl e Ching, Reginah W Kassidy TRIPPER-C Unavailable Unavailabl e Ching, Reginah W Kassidy TRIPPER-C Unavailable Unavailabl e Ching, Reginah W Kassidy TRIPPER-C Unavailable Unavailabl e Ching, Reginah W Kassidy TRIPPER-C Unavailable Unavailabl e Ching, Reginah W Kassidy TRIPPER-C Unavailable Unavailabl e Ching, Reginah W Kassidy TRIPPER-C Unavailable Unavailabl e Ching, Reginah W Kassidy TRIPPER-C Unavailable Unavailabl e Ching, Reginah W Kassidy TRIPPER-C Unavailable Unavailabl e Ching, Reginah W Kassidy TRIPPER-C Unavailable Unavailabl e Ching, Elijah Yi TRIPPER-C Unavailable Unavailabl e Ching, Elijah Yi TRIPPER-C Unavailable Unavailabl e Ching, Elijah Yi TRIPPER-C Unavailable Unavailabl e Ching, Elijah Yi TRIPPER-C Unavailable Unavailabl e Ching, Elijah Yi TRIPPER-C Unavailable Unavailabl e Ching, Elijah Yi TRIPPER-C Unavailable Unavailabl e Ching, Elijah Yi TRIPPER-C Unavailable Unavailabl e Ching, Elijah Yi TRIPPER-C Unavailable Unavailabl e Ching, Elijah Yi TRIPPER-C Unavailable Unavailabl e Ching, Elijah Yi TRIPPER-C Unavailable Unavailabl e Ching, Elijah Yi TRIPPER-C Unavailable Unavailabl e Ching, Elijah Yi TRIPPER-C Unavailable Unavailabl e Ching, Elijah Yi TRIPPER-C Unavailable Unavailabl e Ching, Elijah Yi TRIPPER-C Unavailable Unavailabl e Ching, Elijah Yi TRIPPER-C Unavailable Unavailabl e Ching, Elijah Yi TRIPPER-C Unavailable Unavailabl e Lino Marie MD Unavailable [...] Unavailable Lino Marie MD Unavailable Unavailable FrankLino jsamine MD Unavailable Unavailable Lino Marie MD Unavailable [...] Unavailable Frank, Lino Kahn MD Unavailable Unavailable Lnio Marie MD Unavailable Unavailable Frank, Lino Kahn [...] BROWN, L JANE Unavailable Unavailable DESJARLAIS, KAROLYN FORMING ACID DUMPER Unavailable Unavailable DESJARLAIS, KAROLYN FORMING ACID DUMPER Unavailable Unavailable DESJARLAIS, KAROLYN FORMING ACID DUMPER Unavailable Unavailable DESJARLAIS, KAROLYN FORMING ACID DUMPER Unavailable Unavailable DESJARLAIS, KAROLYN FORMING ACID DUMPER Unavailable Unavailable DESJARLAIS, KAROLYN FORMING ACID DUMPER Unavailable Unavailable DESJARLAIS, KAROLYN FORMING ACID DUMPER Unavailable Unavailable DESJARLAIS, KAROLYN FORMING ACID DUMPER Unavailable Unavailable DESJARLAIS, KAROLYN FORMING ACID DUMPER Unavailable Unavailable MAHESH RECINOS Unavailable Unavailable Lester, Mavis TRIPPER TRIPPER Unavailable Unavailable Lester, A Mavis TRIPPER Unavailable Unavailable Lester, A Mavis TRIPPER Unavailable Unavailable Lester, A Mavis TRIPPER Unavailable Unavailable Lester, A Mavis TRIPPER Unavailable Unavailable Lester, A Mavis TRIPPER Unavailable Unavailable Lester, A Maivs TRIPPER Unavailable Unavailable Lester, A Mavis TRIPPER Unavailable Unavailable Lester, A Mavis TRIPPER Unavailable Unavailable Lester, A Mavis TRIPPER Unavailable Unavailable Lester, A Mavis TRIPPER Unavailable Unavailable Lester, A Mavis TRIPPER Unavailable Unavailable Lester, A Mavis TRIPPER Unavailable Unavailable Lester, A Mavis TRIPPER Unavailable Unavailable Lester, A Mavis TRIPPER Unavailable Unavailable Lester, A Mavis TRIPPER Unavailable Unavailable Lester, A Mavis TRIPPER Unavailable Unavailable Lester, A Mavis TRIPPER Unavailable Unavailable Lester, A Mavis TRIPPER Unavailable Unavailable Lester, A Mavis TRIPPER Unavailable Unavailable Lester, A Mavis TRIPPER Unavailable Unavailable Lester, A Mavis TRIPPER Unavailable Unavailable Lester, A Mavis TRIPPER Unavailable Unavailable Lester, A Mavis TRIPPER Unavailable Unavailable Lester, A Mavis TRIPPER Unavailable Unavailable Lester, A Mavis TRIPPER Unavailable Unavailable Lester, A Mavis TRIPPER Unavailable Unavailable Lester, A Mavis TRIPPER Unavailable Unavailable Lester, A Mavis TRIPPER Unavailable Unavailable BLUM, KATRIN Unavailable Unavailable Re-disclosure [...] is protected by Article 27-F of the [facility] Public Health law. If you continue you may have access to information: Regarding HIV / AIDS; Provided by facilities licensed or operated by the [facility] Office of Mental Health; or Provided by the [facility] Office for People With Developmental Disabilities. If such information is present, then the following [facility] mandated warning applies: This information has [...] allergy Drug allergy AMOXICLIIN SWELLING, HIVES R [facility] Drug allergy olanzapine ol[facility]apine [facility] Drug allergy trimethoprim trimethoprim "BLISTERS IN MOUTH" [facility] Drug allergy sulfamethoxazole sulfamethoxazole "BLISTERS IN MOUTH" [facility] Drug allergy haloperidol haloperidol [facility] Drug allergy Sulfa (Sulfonamide Antibiotics) Sulfa (Sulfonami de Antibiotics) "BLISTERS IN MOUTH" [facility] Drug allergy Penicillins Penicillins SWELLING, HIVES [facility] Encounters Encounter Providers Location Date Indications Data Source(s ) Outpatient Attender: FAHAD MOONEY 04/15/2020 09:45:0 0 AM [facility] Outpatient [facility] 04/08/2020 12:00:00 AM EST [facility] Outpatient [facility] 04/08/2020 12:00:00 AM EST eCW1 ([facility]) Outpatient [facility] 04/05/2020 12:00:00 AM EST eCW1 ([facility]) Outpatient Attender: NATHAN PAUL PA-C 03/30/2020 10:30:00 AM [facility] Outpatient Attender: Shira Youngblood PA-C 03/30/2020 10:18 :00 AM [facility] Outpatient [facility] 03/30/2020 12:00:00 AM EST eC1 ([facility]) Outpatient Attender: JANE EDWARD 03/23/2020 02:00:00 PM [facility] Outpatient Attender: JANE EDWARD 03/17/2020 10:30:00 AM [facility] Outpatient Attender: JANE EDWARD 03/11/2020 04:00:00 PM [facility] Preadmit Attender: FAHAD MOONEY 03/11/2020 06:30:0 0 AM [facility] Outpatient Attender: KAROLYN VAN NP 03/09/2020 03: 40:00 PM [facility] Outpatient [facility] 03/03/2020 12:00:00 AM EST eCW1 ([facility]) Outpatient Attender: Shira Becerraferrer: Shira Youngblood PA-C EMERGENCY ROOM-LAB 03/01/2020 04:49:00 PM EST - 03/01/2020 04:49:00 PM [facility] Outpatient Attender: Shira Youngblood PA-C 03/01/2020 03:45 :00 PM [facility] Outpatient [facility] 03/01/2020 12:00:00 AM EST eCW1 ([facility]) Outpatient [facility] 03/01/2020 12:00:00 AM EST eCW1 ([facility]) Outpatient Attender: KAROLYN VAN NP 02/18/2020 02: 40:00 PM [facility] Outpatient Attender: Kassidy SERRANO 02/18/2020 10:00:0 0 AM [facility] Outpatient [facility] 02/18/2020 12:00:00 AM EST eCW1 ([facility]) Outpatient [facility] 02/10/2020 12:00:00 AM EST eCW1 ([facility]) Outpatient [facility] 02/03/2020 12:00:00 AM EST eCW1 ([facility]) Outpatient [facility] 01/14/2020 12:00:00 AM EST eCW1 ([facility]) Outpatient [facility] 01/06/2020 12:00:00 AM EST eCW1 ([facility]) Outpatient Attender: JOHNATHON PATEL 01/02/2020 10:06:00 A [facility] Outpatient [facility] 01/02/2020 12:00:00 AM EST eCW1 ([facility]) Outpatient Attender: JANE EDWARD 01/01/2020 02:30:00 PM [facility] Outpatient Attender: KAROLYN VAN NP 12/24/2019 11: 00:00 AM [facility] Outpatient Attender: Shira Youngblood PA-C 12/24/2019 08:24 :00 AM EDT [facility] Outpatient [facility] 12/24/2019 12:00:00 AM EDT eCW1 ([facility]) Outpatient Attender: JANE EDWARD 12/23/2019 01:54:00 PM E [facility] Outpatient [facility] 12/23/2019 12:00:00 AM EDT eCW1 ([facility]) Outpatient Attender: Mavis DIEGO FP 12/12/2019 11:3 5:02 AM EDT [facility] Outpatient Attender: JANE EDWARD 12/11/2019 03:00:00 PM E DT [facility] Outpatient [facility] 12/09/2019 12:00:00 AM EDT eCW1 ([facility]) Outpatient Attender: Mavis DIEGO FP 12/05/2019 01:2 6:01 PM EDT [facility] Inpatient Attender: PRERNA RIOS MDAdmitter: PRERNA Hopson MD ER-3RD 12/05/2019 10:08:00 AM EDT - 12/10/2019 01:07:00 PM EDT [facility] Outpatient Attender: NATHAN PAUL PA-C 12/05/2019 09:03:00 AM [facility] Admission cancelled. Disregard status an d admitted date. Inpatient Attender: BEHZAD HOGAN MD Attender: BEHZAD HOGAN MDAttender: DIOGENES BUENO MDAttender: DIOGENES BUENO MDAdmitter: BEHZAD HOGAN MD ER-ICU 12/04/2019 11:06:00 PM EDT - 12/05/2019 10:03:00 AM EDT [facility] Patient discharged. Emergency Attender: GINGER Salaser: Melissa Youngblood PA-C EMERGENCY ROOM-ER 12/04/2019 04:21:00 PM EDT - 12/04/2019 08:40:00 PM EDT [facility] Patient discharged. Outpatient Attender: KAROLYN VAN NP 12/04/2019 03: 11:00 PM T [facility] Outpatient Attender: Mavis DIEGO FP 11/29/2019 07:0 4:03 PM EDT [facility] Outpatient Attender: JOHNATHON PATEL 11/29/2019 07:04:01 P M EDT [facility] Outpatient Attender: Mavis PATEL 11/24/2019 12:2 9:00 PM EDT [facility] Emergency Attender: EVONNE HAGENConsultant: STAFF NON 11/07/2019 12:19:00 AM EDT - 11/07/2019 04:20:00 AM EDT [facility] Patient discharged. Outpatient [facility] 11/07/2019 12:00:00 AM EDT eCW1 ([facility]) Outpatient Attender: Mavis DIEGO FP 11/04/2019 02:2 6:02 PM EDT [facility] Outpatient Attender: KAROLYN VAN NP 11/04/2019 11: 40:00 AM EDT [facility] Outpatient Attender: Mavis DIEGO FP 11/02/2019 01:2 6:00 PM EDT [facility] Outpatient Attender: Mavis PATEL 10/31/2019 06:0 2:00 PM EDT [facility] Outpatient Attender: JOHNATHON DIEGO FP 10/31/2019 06:01:59 P M EDT [facility] Outpatient Attender: Mavis DIEGO FP 10/31/2019 06:0 1:03 PM EDT [facility] Outpatient Attender: JOHNATHON DIEGO FP 10/31/2019 06:01:01 P M EDT [facility] Outpatient Attender: Shira Youngblood PA-C 10/31/2019 09:06 :00 AM EDT [facility] Outpatient [facility] 10/31/2019 12:00:00 AM EDT eCW1 ([facility]) Outpatient Attender: JANE EDWARD 10/27/2019 11:00:00 AM E [facility] Outpatient Attender: KAROLYN VAN NP 10/21/2019 03: 20:00 PM EDT [facility] Emergency Attender: EVONNE Garzasultant: STAFF NON 10/09/2019 02:09:00 AM EDT - 10/09/2019 03:44:00 AM EDT [facility] Patient discharged. Outpatient Attender: KATRIN BLUM 10/06/2019 09:37:00 AM ED T [facility] Outpatient Attender: Mavis DIEGO FP 09/25/2019 04:0 9:01 PM EDT [facility] Outpatient Attender: Mavis PATEL 09/25/2019 04:0 7:59 PM EDT [facility] Outpatient Attender: JOHNATHON PATEL 09/23/2019 10:31:00 A M EDT [facility] Outpatient Attender: JOHNATHON TRUJILLOP FP 09/23/2019 10:30:01 A M EDT [facility] Outpatient Attender: JOHNATHON TRUJILLOP FP 09/23/2019 12:02:09 A M EDT [facility] Outpatient Attender: JOHNATHON TRUJILLOP FP 09/22/2019 05:44:02 P M EDT [facility] Outpatient Attender: Mavis TRUJILLOP FP 09/22/2019 05:4 2:59 PM EDT [facility] Outpatient Attender: JOHNATHON TRUJILLOP FP 09/22/2019 02:38:00 P M EDT [facility] Outpatient Attender: Mavis DIEGO FP 09/22/2019 12:0 5:01 PM EDT [facility] Outpatient Attender: JOHNATHON TRUJILLOP FP 09/22/2019 07:56:01 A M EDT [facility] Outpatient Attender: Mavis TRUJILLOP FP 09/16/2019 05:0 8:02 AM EDT [facility] Outpatient Attender: Mavis TRUJILLOP FP 09/14/2019 05:1 9:00 PM EDT [facility] Outpatient Attender: JOHNATHON TRUJILLOP FP 09/14/2019 05:19:00 P M EDT [facility] Outpatient Attender: Mavis TRUJILLOP FP 09/12/2019 11:5 3:00 AM EDT [facility] Outpatient Attender: Mavis DIEGO FP 09/10/2019 11:0 6:01 PM EDT [facility] Outpatient Attender: JOHNATHON TRUJILLOP FP 09/10/2019 11:06:01 P M EDT [facility] Outpatient Referrer: Femi Marie MD 08/15/2019 05:44:00 A M EDT [facility] Outpatient Attender: Mavis DIEGO FP 08/06/2019 09:5 2:01 AM EDT [facility] Outpatient Attender: JOHNATHON DIEGO FP 08/05/2019 07:41:16 P M EDT [facility] Outpatient Attender: Mavis TRUJILLOP FP 08/05/2019 09:2 3:03 AM EDT [facility] Outpatient Attender: JOHNATHON DIEGO FP 08/05/2019 09:23:01 A M EDT [facility] Outpatient Attender: KATRIN BLUM 08/04/2019 09:42:00 AM ED [facility] Outpatient Attender: Mavis DIEGO FP 08/01/2019 10:3 1:00 AM EDT [facility] Outpatient Attender: Mavis DIEGO FP 08/01/2019 10:2 7:02 AM EDT [facility] Outpatient Attender: JOHNATHON DIEGO FP 07/30/2019 11:31:01 A M EDT [facility] Outpatient Attender: KATRIN BLUM 07/07/2019 03:30:00 PM ED [facility] Outpatient Attender: Mavis DIEGO FP 07/04/2019 10:3 3:02 AM EDT [facility] Outpatient Attender: Mavis DIEGO FP 07/03/2019 01:5 2:01 PM EDT [facility] Outpatient Attender: Mavis DIEGO FP 07/02/2019 10:2 8:02 AM EDT [facility] Outpatient Attender: Mavis DIEGO FP 07/01/2019 09:5 7:00 AM EDT [facility] Outpatient Attender: JOHNATHON DIEGO FP 07/01/2019 08:57:00 A M EDT [facility] Outpatient Referrer: Femi Marie MD 07/01/2019 04:55:00 A M EDT [facility] Outpatient Attender: JOHNATHON DIEGO FP 06/30/2019 04:21:00 P M EDT [facility] Outpatient Attender: Mavis DIEGO FP 06/22/2019 06:0 1:59 PM EDT [facility] Outpatient Attender: Mavis DIEGO FP 06/17/2019 03:3 2:01 PM EDT [facility] Outpatient Attender: JOHNATHON DIEGO FP 05/27/2019 12:22:00 P M EDT [facility] Outpatient Attender: Mavis DIEGO FP 05/24/2019 11:3 7:01 PM EDT [facility] Outpatient Attender: JOHNATHON DIEGO FP 05/20/2019 12:36:01 P M EDT [facility] Outpatient Attender: JOHNATHON DIEGO FP 05/20/2019 11:56:00 A M EDT [facility] Outpatient Attender: JOHNATHON Batista TRIPPER 05/20/2019 11:42:01 A M EDT [facility] Outpatient Attender: JOHNATHON TRUJILLOP FP 05/01/2019 03:31:00 P M [facility] Outpatient Att[facility]: [facility] Batista [facility] 04/28/2019 10:4 4:01 AM [facility] Outpatient Attender: KATRIN BLUM 04/21/2019 10:29:00 AM [facility] Outpatient Attender: JOHNATHON Batista TRIPPER 04/15/2019 12:44:01 P M [facility] Outpatient Attender: MAHESH RECINOS 02/24/2019 01:46:00 PM [facility] Outpatient Attender: JANE EDWARD 02/21/2019 10:00:00 AM [facility] Outpatient Attender: JOHNATHON Batista [facility] 02/18/2019 09:01:04 P M [facility] Outpatient Attender: MAHESH RECINOS 02/10/2019 02:18:00 PM [facility] Inpatient Attender: CHAO GUERRA MDAttdoug harjinder: PRERNA RIOS MDAdmitter: PRERNA RIOS MD ER-3RD 12/23/2018 04:01:00 PM EDT - 12/26/2018 01:22:00 PM T [facility] Patient discharged. Inpatient Attender: ONDINA RAMIREZ MDAdmitter: ONDINA RAMIREZ MD E R-ICU 12/19/2018 05:26:00 PM EDT - 12/23/2018 03:42:00 PM EDT [facility] Patient discharged. Emergency Attender: MATIAS MIKE EMERGENCY ROOM-ER 03:51:00 PM EDT - 12/19/2018 04:47:00 PM [facility] Patient discharged. Medications Medication Brand [...] {capsule_at_bedtime} active Doxepin HCl 25 MG eCW1 ([facility]) Doxepin Hydrochloride 25 MG Oral Capsule Doxepin HCl 25 MG D oxepin HCl 25 MG 03/09/2020 12:00:00 AM EST 1.0 {capsule_at_bedtime} active Doxepin HCl 25 MG eCW1 ([facility] jimena) Doxepin Hydrochloride 25 MG Oral Capsule Doxepin HCl 25 MG D oxepin HCl 25 MG 03/09/2020 12:00:00 AM EST 1.0 {capsule_at_bedtime} active Doxepin HCl 25 MG eCW1 ([facility] jimena) Doxepin Hydrochloride 25 MG Oral Capsule Doxepin HCl 25 MG D oxepin HCl 25 MG 03/09/2020 12:00:00 AM EST 1.0 {capsule_at_bedtime} active Doxepin HCl 25 MG eCW1 ([facility] jimena) 8-2 mg 03/03/2020 12:00:00 AM EST [...] HCl 0.2 MG eCW1 ([facility]ena) Clonidine Hydrochloride 0.2 MG Oral Tablet Clonidine H Cl 0.2 MG Clonidine HCl 0.2 MG 12/24/2019 12:00:00 AM EDT 1.0 {tablet} activ e Clonidine HCl 0.2 MG eCW1 ([facility]) Clonidine Hydrochloride 0.2 MG Oral Tablet Clonidine H Cl 0.2 MG Clonidine HCl 0.2 MG 12/24/2019 12:00:00 AM EDT 1.0 {tablet} activ e Clonidine HCl 0.2 MG eCW1 ([facility] j[facility]ena) Clonidine Hydrochloride 0.2 MG Oral Tablet Clonidine H Cl 0.2 MG Clonidine HCl 0.2 MG 12/24/2019 12:00:00 AM EDT 1.0 {tablet} activ e Clonidine HCl 0.2 MG eCW1 ([facility] jimena) Clonidine Hydrochloride 0.2 MG Oral Tablet Clonidine H Cl 0.2 MG Clonidine HCl 0.2 MG 12/24/2019 12:00:00 AM EDT 1.0 {tablet} suspe nded Clonidine HCl 0.2 MG eCW1 ([facility] jimena) Clonidine Hydrochloride 0.2 MG Oral Tablet Clonidine H Cl 0.2 MG Clonidine HCl 0.2 MG 12/24/2019 12:00:00 AM EDT 1.0 {tablet} activ e Clonidine HCl 0.2 MG eCW1 ([facility] jimena) Clonidine Hydrochloride 0.2 MG Oral Tablet Clonidine H Cl 0.2 MG Clonidine HCl 0.2 MG 12/24/2019 12:00:00 AM EDT 1.0 {tablet} activ e Clonidine HCl 0.2 MG eCW1 ([facility] j[facility]ena) Clonidine Hydrochloride 0.2 MG Oral Tablet Clonidine H Cl 0.2 MG Clonidine HCl 0.2 MG 12/24/2019 12:00:00 AM EDT 1.0 {tablet} activ e Clonidine HCl 0.2 MG eCW1 ([facility] jimena) Clonidine Hydrochloride 0.2 MG Oral Tablet Clonidine H Cl 0.2 MG Clonidine HCl 0.2 MG 12/24/2019 12:00:00 AM EDT 1.0 {tablet} activ e Clonidine HCl 0.2 MG eCW1 ([facility] j[facility]ena) Clonidine Hydrochloride 0.2 MG Oral Tablet Clonidine H Cl 0.2 MG Clonidine HCl 0.2 MG 12/24/2019 12:00:00 AM EDT 1.0 {tablet} activ e Clonidine HCl 0.2 MG eCW1 ([facility]ena) Clonidine Hydrochloride 0.2 MG Oral Tablet Clonidine H Cl 0.2 MG Clonidine HCl 0.2 MG 12/24/2019 12:00:00 AM EDT 1.0 {tablet} suspe nded Clonidine HCl 0.2 MG eCW1 ([facility]) Clonidine Hydrochloride 0.2 MG Oral Tablet Clonidine H Cl 0.2 MG Clonidine HCl 0.2 MG 12/24/2019 12:00:00 AM EDT 1.0 {tablet} activ e Clonidine HCl 0.2 MG eCW1 ([facility]) Clonidine Hydrochloride 0.2 MG Oral Tablet Clonidine H Cl 0.2 MG Clonidine HCl 0.2 MG 12/24/2019 12:00:00 AM EDT 1.0 {tablet} suspe nded Clonidine HCl 0.2 MG eCW1 ([facility]ena) Clonidine Hydrochloride 0.2 MG Oral Tablet Clonidine H Cl 0.2 MG Clonidine HCl 0.2 MG 12/24/2019 12:00:00 AM EDT 1.0 {tablet} activ e Clonidine HCl 0.2 MG eCW1 ([facility]ena) Clonidine Hydrochloride 0.2 MG Oral Tablet Clonidine H Cl 0.2 MG Clonidine HCl 0.2 MG 12/24/2019 12:00:00 AM EDT 1.0 {tablet} activ e Clonidine HCl 0.2 MG [facility] 300 mg 12/13/2019 12:00:00 AM [...] {tablet_at_bedtime} active Clonazepam 0 .5 MG eCW1 ([facility]) Clonazepam 0.5 MG Oral Tablet Clonazepam 0.5 MG 11/04/2019 12:00:00 AM EDT 1.0 {tablet_at_bedtime} active Clonazepam 0 .5 MG eCW1 ([facility]) lisdexamfetamine dimesylate 50 MG Oral Capsule [Vyvans e] Vyvanse 50 MG Vyvanse 50 MG 11/04/2019 12:00:00 AM EDT 1.0 {capsule_in_the_morning} active Vyvanse 50 MG eCW1 ([facility]) Citalopram 20 MG Oral Tablet [Celexa] Celexa 20 MG Celexa 20 MG 11/04/2019 12:00:00 AM EDT 1.0 {tablet} active Ce elise 20 MG eCW1 ([facility]) Citalopram 20 MG Oral Tablet [Celexa] Celexa 20 MG Celexa 20 MG 11/04/2019 12:00:00 AM EDT 1.0 {tablet} active Ce elise 20 MG eCW1 ([facility]) lisdexamfetamine dimesylate 50 MG Oral Capsule [Vyvans e] Vyvanse 50 MG Vyvanse 50 MG 11/04/2019 12:00:00 AM EDT 1.0 {capsule_in_the_morning} active Vyvanse 50 MG eCW1 ([facility]) Citalopram 20 MG Oral Tablet [Celexa] Celexa 20 MG Celexa 20 MG 11/04/2019 12:00:00 AM EDT 1.0 {tablet} active Ce elise 20 MG eCW1 ([facility]) 75 mg 11/02/2019 12:00:00 AM EDT [...] 1.0 {tablet} active Risperdal 3 MG eCW1 ([facility]) Risperidone 3 MG Oral Tablet [Risperdal] Risperdal 3 MG Risp erdal 3 MG 07/07/2019 12:00:00 AM EDT 1.0 {tablet} active Risperdal 3 MG eCW1 ([facility]) Risperidone 3 MG Oral Tablet [Risperdal] Risperdal 3 MG Risp erdal 3 MG 07/07/2019 12:00:00 AM EDT 1.0 {tablet} active Risperdal 3 MG eCW1 ([facility]) Risperidone 3 MG Oral Tablet [Risperdal] Risperdal 3 MG Risp erdal 3 MG 07/07/2019 12:00:00 AM EDT 1.0 {tablet} active Risperdal 3 MG eCW1 ([facility]) Risperidone 2 MG Oral Tablet [Risperdal] Risperdal 2 MG Risp erdal 2 MG 07/07/2019 12:00:00 AM EDT 1.0 {tablet} active Risperdal 2 MG eCW1 ([facility]) Risperidone 3 MG Oral Tablet [Risperdal] Risperdal 3 MG Risp erdal 3 MG 07/07/2019 12:00:00 AM EDT 1.0 {tablet} active Risperdal 3 MG eCW1 ([facility]) Risperidone 3 MG Oral Tablet [Risperdal] Risperdal 3 MG Risp erdal 3 MG 07/07/2019 12:00:00 AM EDT 1.0 {tablet} active Risperdal 3 MG eCW1 ([facility]) Risperidone 3 MG Oral Tablet [Risperdal] Risperdal 3 MG Risp erdal 3 MG 07/07/2019 12:00:00 AM EDT 1.0 {tablet} active Risperdal 3 MG eCW1 ([facility]) Risperidone 2 MG Oral Tablet [Risperdal] Risperdal 2 MG Risp erdal 2 MG 07/07/2019 12:00:00 AM EDT 1.0 {tablet} active Risperdal 2 MG eCW1 ([facility]) Risperidone 3 MG Oral Tablet [Risperdal] Risperdal 3 MG Risp erdal 3 MG 07/07/2019 12:00:00 AM EDT 1.0 {tablet} active Risperdal 3 MG eCW1 ([facility]) Risperidone 3 MG Oral Tablet [Risperdal] Risperdal 3 MG Risp erdal 3 MG 07/07/2019 12:00:00 AM EDT 1.0 {tablet} active Risperdal 3 MG eCW1 ([facility]) Risperidone 3 MG Oral Tablet [Risperdal] Risperdal 3 MG Risp erdal 3 MG 07/07/2019 12:00:00 AM EDT 1.0 {tablet} active Risperdal 3 MG eCW1 ([facility]) Risperidone 3 MG Oral Tablet [Risperdal] Risperdal 3 MG Risp erdal 3 MG 07/07/2019 12:00:00 AM EDT 1.0 {tablet} active Risperdal 3 MG eCW1 ([facility]) Risperidone 3 MG Oral Tablet [Risperdal] Risperdal 3 MG Risp erdal 3 MG 07/07/2019 12:00:00 AM EDT 1.0 {tablet} active Risperdal 3 MG eCW1 ([facility]) Risperidone 3 MG Oral Tablet [Risperdal] Risperdal 3 MG Risp erdal 3 MG 07/07/2019 12:00:00 AM EDT 1.0 {tablet} active Risperdal 3 MG eCW1 ([facility]) Risperidone 2 MG Oral Tablet [Risperdal] Risperdal 2 MG Risp erdal 2 MG 07/07/2019 12:00:00 AM EDT 1.0 {tablet} active Risperdal 2 MG eCW1 ([facility]) Risperidone 3 MG Oral Tablet [Risperdal] Risperdal 3 MG Risp erdal 3 MG 07/07/2019 12:00:00 AM EDT 1.0 {tablet} active Risperdal 3 MG eCW1 ([facility]) Risperidone 3 MG Oral Tablet [Risperdal] Risperdal 3 MG Risp erdal 3 MG 07/07/2019 12:00:00 AM EDT 1.0 {tablet} active Risperdal 3 MG eCW1 ([facility]) 8-2 mg 06/27/2019 12:00:00 AM EDT film [...] TABLETS BY MOUTH EVERY DAY SOLD: 06/18/2019 [facility] Famotidine 20 MG Oral Tablet FAMOTIDINE [...] relationship to dick Policy Dick Plan Information [facility] COMMUNITY PLAN [facility] [id number] SP [id number] [facility] MEDICAID [id number] S [id number] [facility] [id number] S [id number] [facility] MEDICAID [id number] S [id number] [facility] MEDICAID [id number] S [id number] [facility](MCAID) O [id number] S [id number] Managed Care - [facility] Community Plan P [id number] S [id number] Medicaid S [id number] S [id number] [facility] [id number] SP [id number] [facility] OZZIE [id number] S [id number] UN COMMUNITY PLAN [facility] [id number] SP [id number] UN COMMUNITY PLAN XIX [id number] MEDICAID [id number] SP [id number] Managed Care - [facility] Community Plan P [id number] S [id number] MEDICAID [id number] S [id number] MEDICAID [id number] S [id number] MEDICAID PROF FEES [id number] S [id number] MEDICAID [id number] S [id number] [facility] [id number] S [id number] Medicaid S [id number] S [id number] Managed Care - Community Plan [facility] P [id number] S [id number] 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 [id number] SP [id number] SELF PAY UNAVAILABLE SP UNAVAILA BLE Self Pay P UNAVAILABLE S UNAVAILA BLE Medicaid P [id number] S [id number] [facility]ILABLE S UNAVAILA BLE [facility] Care - Community [facility] P [id number] S [id number] Medicaid S UNAVAILABLE S UNAVAILA BLE Problems, Conditions, and Diagnoses Code Display Name Description Problem Type Effective Dates Data Source(s) F19.10 Polysubstance abuse Polysubstance abuse Problem 0 03/11/2020 12:00:00 AM EST eCW1 ([facility] jimena) F19.11 [id number] History of drug abuse Problem 03/01/2020 12: 00:00 AM EST eCW1 ([facility]) K14.6 [id number] Tongue sore Problem 03/01/2020 12:00:[address] eCW1 ([facility]) F19.10 [id number] Substance abuse Problem 12/24/2019 12:00:00 AM EDT eCW1 ([facility]) F50.81 [id number] Binge eating disorder Problem 11/04/2019 12: 00:00 AM EDT eCW1 ([facility]) G56.03 [id number] Carpal tunnel syndrome, bilateral Pr oblem 10/31/2019 12:00:00 AM EDT eCW1 ([facility] jimena) R13.12 [id number] Oropharyngeal dysphagia Problem 10/31/2019 1 2:00:00 AM EDT eCW1 ([facility]) F17.200 05279682 Tobacco dependence Problem 10/31/2019 12:00: 00 AM EDT eCW1 ([facility]) E66.9 [id number] Obesity (BMI 30.0-34.9) Problem 0 10/31/2019 12:00:00 AM EDT eCW1 ([facility]) Z68.30 029946912 BMI 30.0-30.9,adult Problem 10/31/2019 12:00 :00 AM EDT eCW1 ([facility]) K21.9 [id number] Gastroesophageal ref lux disease, esophagitis presence not specified Problem 10/31/2019 12:00:00 AM EDT eCW1 ([facility]) K92.0 Hematemesis Hematemesis - cause unknown 020 05:42:44 PM EDT [facility] I80.9 Phlebitis and thrombophlebitis of unspec ified site Phlebitis and thrombophlebitis of unspecified site 05/20/2019 12:34:09 PM EDT [facility] right AC and right tibia F90.0 Attention-deficit hyperactivity disorder , predominantly inattentive type ATTN-DEFCT HYPERACTIVITY DISORDER, PREDOM INATTENT Diagnosis 02:00:00 PM [facility] F11.21 Opioid dependence, in remission OPIOID DEPENDENC E, IN REMISSION Diagnosis 03/23/2020 02:00:00 PM [facility] F50.81 BINGE EATING DISORDER BINGE EATING DISORDER Diagnosis 03/23/2020 02:00:00 PM [facility] F43.12 Post-traumatic stress disorder, chronic POST-TRAUMATIC STRESS DISORDER, CHRONIC Diagnosis 03/23/2020 02:00:00 PM [facility] F25.9 Schizoaffective disorder, unspecified SC HIZOAFFECTIVE DISORDER, UNSPECIFIED Diagnosis 03/23/2020 02:00:00 PM [facility] F19.10 Other psychoactive substance abuse, unco mplicated OTHER PSYCHOACTIVE SUBSTANCE ABUSE, UNCOMPLICATED Diagnosis 03/17/2020 10:30:00 AM [facility] Z13.29 Encounter for screening for other suspec keven endocrine disorder ENCOUNTER FOR SCREENING FOR OTH SUSPECTE Diagnosis 03/01/2020 04:49:00 PM [facility] Z82.61 Family history of arthritis FAMILY HISTORY OF ARTHRITI S Diagnosis 03/01/2020 03:45:00 PM [facility] Z13.220 Encounter for screening for lipoid disor ders ENCOUNTER FOR SCREENING FOR LIPOID DISORDERS Diagnosis 03/01/2020 03:45:00 PM [facility] Z82.69 Family history of other dise ases of the musculoskeletal system and connective tissue FAMILY HISTORY OF DISEASES OF THE MS SYS AND CONNE Diagnosis 03/01/2020 03:45:00 PM [facility] R50.9 Fever, unspecified FEVER, UNSPECIFIED Diagnosis 05/2020 03:45:00 PM [facility] 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, in r emission OTHER PSYCHOACTIVE SUBSTANCE ABUSE, IN REMISSION Diagnosis 03/01/2020 03:45:00 PM [facility] G56.03 CARPAL TUNNEL SYNDROME, BILATERAL UPPER LIMBS CARPAL TUNNEL SYNDROME, BILATERAL UPPER LIMBS Diagnosis 03/01/2020 03:45:00 PM [facility] james K21.9 Gastro-esophageal reflux disease without esophagitis GASTRO-ESOPHAGEAL REFLUX DISEASE WITHOUT ESOPHAGITIS Diagnosis 02/18/2020 10:00:00 AM [facility] F15.10 Other stimulant abuse, uncomplicated OTH ER STIMULANT ABUSE, UNCOMPLICATED Diagnosis 01/01/2020 02:30:00 PM [facility] F12.10 Cannabis abuse, uncomplicated CANNABIS ABUSE, UNCOMPLI CATED Diagnosis 12/24/2019 11:00:00 AM [facility] F11.10 Opioid abuse, uncomplicated OPIOID ABUSE, UNCOMPLICATE D Diagnosis 12/24/2019 11:00:00 AM [facility] R13.12 Dysphagia, oropharyngeal phase DYSPHAGIA, OROPHARYNGEA L PHASE Diagnosis 12/24/2019 08:24:00 AM [facility] M54.2 Cervicalgia CERVICALGIA Diagnosis 12/24/2019 08:24:00 AM [facility] T50.914D POISONING BY MULTIPLE UNSP DRUG/MEDS/BIO L SUBST, U POISONING BY MULTIPLE UNSP DRUG/MEDS/BIOL SUBST, U Diagnosis 12/24/2019 08:24:00 AM [facility] F19.20 Other psychoactive substance dependence, uncomplicated OTHER PSYCHOACTIVE SUBSTANCE DEPENDENCE, UNCOMPLIC Diagnosis 12/05/2019 10:08:00 AM [facility] R45.851 Suicidal ideations SUICIDAL IDEATIONS Diagnosis 10/2019 10:08:00 AM [facility] G40.909 Epilepsy, unspecified, not intractable, without status epilepticus EPILEPSY, UNSP, NOT INTRACTABLE, WITHOUT STATUS EP Diagnosis 10/2019 10:08:00 AM [facility] F32.2 Major depressive disorder, s rito episode, severe without psychotic features MAJOR DEPRESSV DISORD, SINGLE EPSD, SEV Diagnosis 12/05/2019 10:08:00 AM [facility] F25.1 Schizoaffective disorder, depressive typ e SCHIZOAFFECTIVE DISORDER, DEPRESSIVE TYPE Diagnosis 12/05/2019 10:08:00 AM [facility] Y92.[address] or not applicable UNSPECIFIED PLACE OR NOT APPLICABLE Diagnosis 12/04/2019 11:06:00 PM [facility] X58.XXXA Exposure to other specified factors, ini tial encounter EXPOSURE TO OTHER SPECIFIED FACTORS, INITIAL ENCOU Diagnosis 12/04/2019 11:06:00 P M [facility] T42.6X2A Poisoning by other antiepile ptic and sedative-hypnotic drugs, intentional self-harm, initial encounter POISN BY OTH ANTIEPLPTC AND SED-HYPNTC DRUGS, SLF- Diagnosis 12/04/2019 11:06:00 PM [facility] T40.902A Poisoning by unspecified psy chodysleptics [hallucinogens], intentional self-harm, initial encounter POISONING BY UNSP PSYCHODYSLEPTICS, SELF-HARM, INI Diagnosis 12/04/2019 11:06:00 PM [facility] K21.9 Gastro-esophageal reflux disease without esophagitis GASTRO-ESOPHAGEAL REFLUX DISEASE WITHOUT ESOPHAGIT Diagnosis 12/04/2019 11:06:00 PM [facility] F90.9 Attention-deficit hyperactivity disorder , unspecified type ATTENTION- DEFICIT HYPERACTIVITY DISORDER, UNSPECIF Diagnosis 12/04/2019 11:06:00 PM [facility] F43.10 Post-traumatic stress disorder, unspecif ied POST-TRAUMATIC STRESS DISORDER, UNSPECIFIED Diagnosis 12/04/2019 11:06:00 PM [facility] F43.23 Adjustment disorder with mixed anxiety a nd depressed mood ADJUSTMENT DISORDER WITH MIXED ANXIETY AND DEPRESS Diagnosis 12/04/2019 11:06:00 PM [facility] T42.4X2A Poisoning by benzodiazepines, intentiona l self-harm, initial encounter POISONING BY BENZODIAZEPINES, INTENTIONAL SELF-HARM, INIT Diagnosis 12/04/2019 11:06:00 PM [facility] Y93.89 Activity, other specified ACTIVITY, OTHER SPECIFIED Di agnosis 12/04/2019 04:21:00 PM [facility] Y92.[address] the place of o ccurrence of the external cause OT PLACES THE PLACE OF OCCURRENCE OF THE EXTER Diagnosis 09/2019 04:21:00 PM [facility] Z79.899 Other remote computer terminal operator (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) drug therapy O THER CORRECTION (CURRENT) DRUG THERAPY Diagnosis 12/04/2019 04[facility]21:[facility]28 Contact with and (suspected) exposure to other viral communicable diseases CONTACT W AND EXPOSURE TO OTH VIRAL COMMUNICABLE D Diagnosis 12/04/2019 04:21:00 PM [facility] F17.210 Nicotine dependence, cigarettes, uncompl icated NICOTINE DEPENDENCE, CIGARETTES, UNCOMPLICATED Diagnosis 12/04/2019 04:21:00 PM [facility] T50.992A Poisoning by other drugs, me dicaments and biological substances, intentional self-harm, initial encounter POISONING BY OTH DRUG/MEDS/BIOL SUBST, SELF-HARM, Diagnosis 12/04/2019 04:21:00 [facility] R45.851 Suicidal ideations SUICIDAL IDEATIONS Diagnosis 09/2019 04:21:00 PM [facility] X34952 Nicotine dependence, cigarettes, uncompl icated Nicotine dependence, cigarettes, uncomplicated Diagnosis 11/07/2019 12:19:00 AM [facility] F1510 Other stimulant abuse, uncomplicated Other stimu lant abuse, uncomplicated Diagnosis 11/07/2019 12:19:00 AM [facility] X35360 Other psychoactive substance abuse with psychoactive substance-induced anxiety disorder Other psychoactive substance abuse with psychoactive substance- induced anxiety disorder Diagnosis 11/07/2019 12:19:00 AM [facility] R110 Nausea Nausea Diagnosis 11/07/2019 12:19:00 AM ED [facility] Z76.89 Persons encountering health services in other specified circumstances PERSONS ENCOUNTERING HEALTH SERVICES IN OTH CIRCUM Diagnosis 05/2019 09:06:00 AM [facility] Z71.9 Counseling, unspecified COUNSELING, UNSPECIFIED Diagno sis 10/31/2019 09:06:00 AM [facility] Z68.30 Body mass index (BMI) 30.0-30.9, adult B BOB MASS INDEX (BMI) 30.0-30.9, ADULT Diagnosis 10/31/2019 09:06:00 [facility] E66.9 Obesity, unspecified OBESITY, UNSPECIFIED Diagnosis 10/31/2019 09:06:00 AM [facility] R56.9 Unspecified convulsions UNSPECIFIED CONVULSIONS Diagno sis 10/31/2019 09:06:00 AM [facility] F909 Attention-deficit hyperactivity disorder , unspecified type Attention- deficit hyperactivity disorder, unspecified type Diagnosis 10/08 02:09:00 AM [facility] J029 Acute pharyngitis, unspecified Acute pharyngitis, unsp ecified Diagnosis 10/09/2019 02:09:00 AM [facility] F15.11 OTHER STIMULANT ABUSE, IN REMISSION OTHER STIMUL ANT ABUSE, IN REMISSION Diagnosis 02/24/2019 01:46:00 PM [facility] Z72.0 Tobacco use TOBACCO USE Diagnosis 02/21/2019 10:00:00 AM [facility] F12.11 CANNABIS ABUSE, IN REMISSION CANNABIS ABUSE, IN REMISS ION Diagnosis 02/10/2019 02:18:00 PM [facility] Surgeries/Procedures Procedure Description Date Indications Data Source(s) Psychological Tests, Neurobehavioral and Cognitive Status 12/06/2019 12:00:00 AM [facility] Introduction of Electrolytic and Water B alance Substance into Peripheral Vein, Percutaneous Approach 12/04/2019 12:00:00 AM [facility] Results ID Date Data Source [id number] 04/09/2020 02:48:00 AM EST [facility] Name Value Range Interpretation Code Description Data [place] rce(s) Supporting Document(s) SARS COVID ANTIGEN POSITIVE [facility] This lab was ordered by AMANUEL nunez nd reported by [facility]. ID Date Data Source [id number] 04/09/2020 02:46:00 AM EST [facility] Name Value Range Interpretation Code Description Data [place] rce(s) Supporting Document(s) SARS COVID ANTIGEN POSITIVE [facility] This lab was ordered by AMANUEL JACKMAN a nd reported by [facility]. ID Date Data Source [id number] 03/04/2020 12:09:00 PM EST [facility] Name Value Range Interpretation Code Description Data [place] rce(s) Supporting Document(s) FAZAL DIRECT Negative Negative [facility] Performed at: - [facility] [place] [id number] Director: Elsa Garcia MD, Phone: [phone] ID Date Data Source [id number] 03/04/2020 12:05:00 PM EST [facility] Name Value Range Interpretation Code Description Data [place] rce(s) Supporting Document(s) FAZAL Direct Negative Negative [facility] ID Date Data Source [id number] 03/03/2020 08:50:00 AM EST [facility] ADD ON TEST Name Value Range Interpretation Code Description Data [place] rce(s) Supporting Document(s) RHEUMATOID FACTOR SCREEN NEGATIVE NEGATIVE [facility] ID Date Data Source [id number] 03/03/2020 08:37:00 AM EST [facility] ADD ON TEST Name Value Range Interpretation Code Description Data [place] rce(s) Supporting Document(s) FREE T4 1.0 ng/dL 0.76-1.46 [facility] ID Date Data Source [id number] 03/03/2020 08:37:00 AM EST [facility] ADD ON TEST Name Value Range Interpretation Code Description Data [place] rce(s) Supporting Document(s) TSH 0.422 uIU/mL 0.36-3.74 [facility] ID Date Data Source [id number] 03/03/2020 08:11:00 AM EST [facility] ADD ON TEST Name Value Range Interpretation Code Description Data [place] rce(s) Supporting Document(s) C REACTIVE PROTEIN 15.6 mg/L 0.0-3.[address] [facility] ID Date Data Source [id number] 03/03/2020 08:11:00 AM [facility] ADD ON TEST Name Value Range Interpretation Code Description Data [place] rce(s) Supporting Document(s) GLUCOSE 85 mg/dL 74-106 [facility] BLOOD UREA NITROGEN 11 mg/dL 7-[address] [facility] ital CREATININE 0.88 mg/dL 0.6-1.0 [facility] SODIUM 135 mmol/L 136-145 L [facility] POTASSIUM 4.1 mmol/L 3.5-5.1 [facility] CHLORIDE 99 mmol/L 98-107 [facility] CO2 26 mmol/L 21-32 [facility] CALCIUM 8.8 mg/dL 8.5-10.1 [facility] ANION GAP 10.0 mmol/L 5-12 [facility] GLOMERULAR FILTRATION RATE 74 mL/min [facility] GFR IS CALCULATED IN mL/min/1.73m2 LISANDRA L FUNCTION: >90MILDLY DECREASED: 60-89MILDY TO MODERATELY DECREASED: 45-59 MODERATELY TO SEVERELY DECREASED: 30-44SEVERELY DECREASED: 15-29RENAL FAILURE: <15 AST 32 U/L 15-37 [facility] ALT 32 U/L 12-78 [facility] ALKALINE PHOSPHATASE 65 U/L 46-116 [facility] pital TOTAL BILIRUBIN 0.2 mg/dL 0.2-1.0 [facility] TOTAL PROTEIN 6.9 g/dl 6.4-8.2 [facility] ALBUMIN 3.9 gm/dL 3.4-5.0 [facility] ID Date Data Source [id number] 03/01/2020 05:46:00 PM EST [facility] Name Value Range Interpretation Code Description Data [place] rce(s) Supporting Document(s) CHOLESTEROL 193 mg/dL 0-200 [facility] TRIGLYCERIDES 86 mg/dL 0-150 [facility] LDL CHOLESTEROL 111 mg/dL 0-100 H [facility] HDL CHOLESTEROL 65 mg/dL 40-60 H [facility] CHOL/HDL RATIO 3.0 0.0-5.0 [facility] ID Date Data Source [id number] 02/29/2020 10:40:00 AM EST [facility] Name Value Range Interpretation Code Description Data [place] rce(s) Supporting Document(s) SARS coronavirus 2 RNA [facility] This lab was ordered by [facility] and reported by [facility]. ID Date Data Source [id number] 12/10/2019 11:15:00 AM EDT [facility] [place] [address] [id number] NAME: BRUNA LEE#: [id number] PHYSICIAN: PRERNA RIOS MD ADM. DATE: 12/05/19ACCOUNT #: [id number] DISCH. DATE:DISCHARGE SUMMARYIDENTIFICATION: A 34-year-old female with schizoaffective disorder,polysubstance dependence.CHIEF COMPLAINT: "I don't know why I am here."REASON FOR ADMISSION: Post- overdose.HISTORY OF PRESENT ILLNESS: The patient was interviewed in ICU after sheoverdosed. The patient was seen in [facility] for a regularconsultation, she could not [...] [place] last time in our service with [...] ABUSE: None.SOCIAL HISTORY: The patient is from [place], did not finish high school.She was in [...] The patient was discharged with the medications Wqakzp66 mg p.o. daily, Neurontin 600 mg p.o. [...] be enrolled in outpatient chemical dependence in [place].MENTAL STATUS EXAMINATION: The patient is pleasant, cooperative. [...] Dictated: 12/10/2019 09:34:34Date Transcribed: 12/10/2019 10:15:05JLeydi/Karen #: [id number]: 12/10/19 0934 Electronically SignedTRANS:12/10/19 1115 PRERNA RIOS MDTRANS BY:ADE SIGNED:12/10/19REPORT COPY TO: Name Value Range Interpretation Code Description Data [place] rce(s) Supporting Document(s) ID Date Data Source [id number] 12/10/2019 06:43:00 AM EDT [place], [place] [address]PATIENT NAME: BRUNA LEE#: [id number] PHYSICIAN: PRERNA RIOS, [facility]OUNT #: [id number] ADM. DATE: 12/05/19PATIENT : 89 DISCH. DATE: [...] follow-upappointmentDischarge InformationDISCHARGE INFORMATION* Thank you [facility] and allowing us toserve you* Our Goal is to provide the highest quality of care.* This discharge information is to help you better understand your diagnosisand medication* Avoid taking xsek-zhm-hhzibyr medicines unless approved by your physician.* Take your medications as prescribed. DO NOT stop any medications unlessapproved first* Weigh yourself daily. Report any gain of 5 lbs in a week* 24 Hour Crisis HOTLINE available: Call [facility] at [phone]* Chem. Dependency: Walk in Clinics [facility] ([phone]) and [facility] ([phone]) anytime Sunday thru Sunday 8 to 10am. [facility] ([phone]) anytimeMonday thru Sunday 8 to 10am. [facility] ([phone]) Sunday or Sunday from 8to 10am (Bring $30 to [facility]) SMOKIN G CESSATION* Smoking is dangerous to your health. It delays the healing process, andworks against your medications. Not smoking will improve your health* Our hospital participates with the Opt-to-Quit program. You will be contactedafter discharge by the [facility] Smoker's Quitline for support with tobaccocessation. You have the option once contacted to refuse this service.* You can also go online to www.SpumeNews. Free nicotine replacementsare available Attention* You should [...] rce(s) Supporting Document(s) ID Date Data Source [id number] 12/10/2019 02:15:00 AM EDT [facility] [address] [address]TCURJKE NAME: BRUNA LEE.#: [id number] PHYSICIAN: PRERNA RIOS MD ADM. DATE: 12/05/19PROGRESS NOTE DATE: 12/09/19 .#: [id number] #: [id number] NOTEIDENTIFICATION: A 34-year-old female with mood disorder [...] Dictated: 12/09/2019 10:52:52Date Transcribed: 12/10/2019 01:15:28JV/RAVJob #: [id number]: 12/09/19 1052 Electronically SignedTRANS:12/10/19 0215 PRERNA RIOS MDTRANS BY:IATDATE SIGNED:12/10/19REPORT COPY TO: Name Value Range Interpretation Code Description Data [place] rce(s) Supporting Document(s) ID Date Data Source [id number] 12/08/2019 11:58:00 AM EDT [facility] james Name Value Range Interpretation Code Description Data [place] rce(s) Supporting Document(s) URINE COLOR Yellow [facility] UAPR Clear [facility] UGLU Negative NEGATIVE [facility] URINE BILIRUBIN [facility] UKET Negative NEGATIVE [facility] USG 1.015 1.010-1.025 [facility] UBLO Negative NEGATIVE [facility] UpH 8.0 5.0-8.0 [facility] UPRO Negative Negative [facility] UUB 0.2 mg/dL 0.2-1.0 [facility] UNIT Negative Negative [facility] ULEU Negative Negative [facility] ID Date Data Source [id number] 12/09/2019 04:57:00 AM EDT [address] [address]LXIWUCU NAME: BRUNA LEE#: [id number] PHYSICIAN: PRERNA RIOS MD ADM. DATE: 12/05/19PROGRESS NOTE DATE: 12/08/19 .#: [id number] #: [id number] NOTEIDENTIFICATION: A 34-year-old female with mood disorder, [...] Dictated: 12/08/2019 10:30:51Date Transcribed: 12/09/2019 03:57:49JV/RAVJob #: [id number]: 12/08/19 1030 Electronically SignedTRANS:12/09/19 0457 PRERNA RIOS MDTRANS BY:ADE SIGNED:12/09/19REPORT COPY TO: Name Value Range Interpretation Code Description Data [place] rce(s) Supporting Document(s) ID Date Data Source [id number] 12/06/2019 11:02:00 PM EDT [address] [address]CETYSSB NAME: BRUNA LEE#: [id number] PHYSICIAN: PRERNA RIOS MD ADM. DATE: 12/05/19ACCOUNT #: [id number] .#: [id number] ASSESSMENTIDENTIFICATION: A 34-year-old female with schizoaffective disorder andpolysubstance dependence.CHIEF COMPLAINT: "I don't know why I am here."REASON FOR ADMISSION: Post-overdose.HISTORY OF PRESENT ILLNESS: According to the records and our interview, thepatient was brought to our service after being in ICU and the medical floorfor an overdose. The patient went to the outpatient clinic in [facility] and she passed out in consultation. She [...] 2 weeks ago, that she was in [place] inpatient service for 5 days forthat.The patient [...] into detail.SOCIAL HISTORY: The patient is from [place]. Did not finish high school.She is in [...] Dictated: 12/06/2019 12:22:47Date Transcribed: 12/06/2019 22:02:14JV/GBJob #: [id number]: 12/06/19 1222 Electronically Signed TRANS:12/06/19 2302 PRERNA RIOS MDTRANS BY:THADAFUNMI SIGNED:12/07/19REPORT COPY TO: Name Value Range Interpretation Code Description Data [place] rce(s) Supporting Document(s) ID Date Data Source [id number] 12/05/2019 02:12:00 AM EDT [facility] Name Value Range Interpretation Code Description Data [place] rce(s) Supporting Document(s) CKI 109 U/L 17-150 [facility] ID Date Data Source [id number] 12/05/2019 04:49:00 PM EDT [facility] [place], [place] [address]MENTAL HEALTH HISTORY AND PHYSICALPATIENT NAME: BRUNA LEE MR#: [id number] PHYSICIAN: PRRENA RIOS MDAUTHOR: Melanie Bueno MDckery DATE: 12/05/19 [...] and [facility]Past Medical/Surgical HistoryPast Medical/Surgical HistoryMedical ProblemsAcute [...] rce(s) Supporting Document(s) ID Date Data Source [id number] 12/05/2019 09:48:00 AM EDT [facility] [address] [id number] SUMMARYPATIENT NAME: BRUNA LEE MR#: [id number] PHYSICIAN: BEHZAD HOGAN, MDAUTHOR: Diogenes Bueno MD DATE: 12/04/19 #: ICUDISCHARGE DATE: 12/05/19 : 89Summary of HospitalizationReason for AdmissionOverdose on xanax, gabapentin, bath saltsHospital Lntvqe30 yo F who was admitted for an [...] and [facility]Diagnoses (Current Visit)Problem List1. Drug overdose2. [...] taking the following medications:Gabapentin* (Neurontin*) 400 MG [id number] MILLIGRAM Orally DAILYContinue taking these medications:LEVETIRACETAM (LEVETIRACETA) 1,000 MG TABLET1,000 MILLIGRAM Orally TWICE DAILYQty = 60Amitriptyline HCl (Amitriptyline HCl) 100 MG [id number] MILLIGRAM Orally DAILYSUCRALFATE (Carafate*) 1 GM TABLET1 GM Orally TWICE DAILYcloniDINE* (CLONIDINE*) 0.1 MG TABLET0.1 MILLIGRAM Orally TWICE DAILYOmeprazole Magnesium (Prilosec Otc) 20 MG TABLET.DR20 MILLIGRAM Orally DAILYrispERIdone (RISPERDAL*) 0.5 MG TABLET2 MILLIGRAM Orally TWICE DAILYATOMOXETINE HCL (Strattera) 18 MG [id number] MILLIGRAM Orally DAILYBUPRENORPHINE HCL/NALOXONE HCL (Suboxone 8 MG-2 MG Sl Film) 1 EACH FILM1 MILLIGRAM SublinguallySUMATRIPTAN SUCCINATE (Imitrex*) 50 MG [id number] MILLIGRAM Orally DAILY NEEDED as needed for HeadacheOxcarbazepine (Trileptal) 150 MG [id number] MILLIGRAM Orally TWICE DAILYDischarge Activity: As tolerated, No liftingDischarge diet: RegularFollow-upFollow up with the mental health doctor [facility] spent by provider to complete discharge > 30 minutesDATE SIGNED: 12/05/19 Electronically SignedTIME SIGNED: 1912 DIOGENES BUENO MD Name Value Range Interpretation Code Description Data [place] rce(s) Supporting Document(s) ID Date Data Source [id number] 12/05/2019 09:46:00 AM EDT [facility] [place], [place] [address]PATIENT NAME: BRUNA LEE#: [id number] PHYSICIAN: YI KLEIN #: [id number] ADM. DATE: 12/04/19PATIENT : 89 DISCH. DATE: [50}DISCHARGE SUMMARYMedical Discharge PlanNicotine Replacement TherapyPrescribed at discharge Rx not offered at DCReason not offered [facility] Care InstructionsDischarge Activity: As tolerated, No liftingDischarge diet: RegularProblem ListMedical ProblemsAcute respiratory failure (Acute)Drug abuse (Chronic)Drug overdose (Acute)SchizophreniaSeizure disorder (Chronic, 12/20/18)Follow Up CareFollow Up:Follow up [facility]Priority ItemsUrgent/Important items that need to be addressed at primary care follow-upappointmentPLEASE AVOID GABAPENTIN/XANAX/BATH SALTS IN THE FUTUREDischarge InformationDISCHARGE INFORMATION* Thank you for choosing [facility] and allowing us toserve you* Our [...] Hour Crisis HOTLINE available: Call [employer] at [phone] SMOKING CESSATION* Smoking is dangerous to your health. It delays the healing process, andworks against your medications. Not smoking will improve your health* Our hospital participates with the Opt-to-Quit program. You will be contactedafter discharge by the [facility] Smoker's Quitline for support with tobaccocessation. You have the option once contacted to refuse this service.* You can also go online to www.SpumeNews. Free nicotine replacementsare available Attent ion* You [...] rce(s) Supporting Document(s) ID Date Data Source [id number] 12/06/2019 02:37:00 AM EDT [address] [id number] NAME: BRUNA LEE#: [id number] PHYSICIAN: BEHZAD HOGAN MD ADM. DATE: 12/04/19CONSULTING PHYSICIAN: PRERNA RIOS MD .#: ICUACCOUNT #: [id number] REPORTIDENTIFICATION: A 34-year-old female with mood disorder. This is a shortconsultation for a 34-year-old female who was unresponsive. The patient is inICU and at this point it is not clear the reason for an overdose.According to the records, the patient has a history of seizures, GERD, carpaltunnel, adjustment disorder, anxiety, depression, PTSD, and ADHD. Accordingto the records, the patient went to [facility] for an evaluation. Shehad an overdose. Was unconscious and at that point, according to the records,she stated that she injected bath salts in the morning, that is when shebecame unconscious and it is not clear who called the EMS that brought her [facility]. The patient has poor response to [...] the lastthing she remembers is being at [place] so she is oriented to person, not [...] Dictated: 12/05/2019 09:24:19Date Transcribed: 12/06/2019 01:37:33JV/GBJob #: [id number]: 12/05/19 0924 Electronically SignedTRANS:12/06/19 0237 PRERNA RIOS MDTRANS BY:ADE SIGNED:12/09/19REPORT COPY TO: Name Value Range Interpretation Code Description Data [place] rce(s) Supporting Document(s) ID Date Data Source [id number] 12/05/2019 08:01:00 AM EDT [facility] Patient: BRUNA LEE Observation Repor t - Phys[facility] HospitalVisitID: [id number] [place] [address] [phone], FRegistradelaware hospital for the chronically ill Date/Time: 12/04/2019 15:46 Weight:68.4 kg (E). Height/Length:60 [...] 12/04/2019 20:43) Addenda for BRUNA LEE VisitID: [id number] Date: 12/04/2019 12/05/2019 7:59Spoke to [facility] nurse Deborah who wanted to come to [place] to see patient. Advised Deborah that the [facility] was [facility]. (Electronically signed by Allyssa Paredes R.N. - 12/05/2019 7:59) Name Value Range Interpretation Code Description Data [facility] rce(s) Supporting Document(s) ID Date Data Source [id number] 12/05/2019 07:34:00 [facility] Name Value Range Interpretation Code Description Data [facility] rce(s) Supporting Document(s) GLU 76 mg/dL 70-110 [facility] Patients taking Sulfasalazine may have f alsely depressedGlucose levels. Patients taking Sulfapyridine may havefalsely elevated Glucose levels. Patients should be drawnfor Glucose before the initial administration of eitherdrug. BUN 7 mg/dL 7-23 [facility] CRE 0.500 mg/dL 0.500-1.300 [facility] GFR > 60 mL/min [facility] CHLORIDE 117 mmol/L 99-110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 80 and above >32 mL/min NormalBeta-HCG, Qual Serum: (JENN: 11/07/2019 02:15) ( [facility] 11/07/[facility] 03:20) Final results Test Result Flag Units (Reference) HCG SERUM QUAL NEGATIVE (NORMAL: NEGAT HCG SERUM QL REENTER NEGATIVE (NORMAL: NEGAT { KIT LOT # [id number] ){ KIT EXP [id number] ){ PROCEDURAL CONTROL VALID)CPK: (JENN: 11/07/2019 02:15) [...] PRESUMPTIVE POSITIVE CONFIRMATION WILL BE PERFORMED AT [facility].Urinalysis: (JENN: 11/07/2019 02:00) ( MsgRcvd 11/07/2019 02:28) [...] Indicate 5 Clinical Report - Physicians/Mid Levels [facility] Emergency Department [address] [place] [address] Phone #: ext- [phone] 11/07/2019 00:19 Patient: [...] was requested by: Evonne Hagen Reference #: [id number] Others' Prescriptions Patient Name: Brnua LeeBirth Date: 1985 Address: [address] [place], [place] [address]Sex: Female Rx Written Rx Dispensed Drug Quantity [...] table. 6 Clinical Report - Physicians/Mid Levels [facility] Emergency Department [address] [place] [address] Phone #: ext- [phone] 11/07/2019 00:19 Patient: [...] Oral. 7 Clinical Report - Physicians/Mid Levels [facility] Emergency Department [address] [place] [address] Phone #: ext- [phone] 11/07/2019 00:19 Patient: [...] rce(s) Supporting Document(s) ID Date Data Source [id number] 11/07/2019 03:20:00 AM EDT [facility] Name Value Range Interpretation Code Description Data [place] rce(s) Supporting Document(s) HCG SERUM QUAL NEGATIVE NORMAL: NEGATIVE [facility] HCG SERUM QL REENTER NEGATIVE NORMAL: NEGATIVE [facility] { KIT LOT # [id number] ){ KIT EXP DATE 12-08-20 ){ PROCEDURAL CONTROL VALID ) ID Date Data Source [id number] 11/07/2019 03:15:00 AM EDT [facility] Name Value Range Interpretation Code Description Data [place] rce(s) Supporting Document(s) Creatine kinase [Enzymatic activity/volume] in Serum or Plasma 3 13 U/L 30 - 170 H [facility] ID Date Data Source [id number] 11/07/2019 03:14:00 AM EDT [facility] Name Value Range Interpretation Code Description Data [place] rce(s) Supporting Document(s) COMPREHENSIVE METABOLIC PANEL [facility] COMPREHENSIVE METABOLIC PANEL Sodium [Moles/volume] in Serum or Plasma 140 mEq/L 134 - 153 [facility] Potassium [Moles/volume] in Serum or Plasma 3.8 mEq/L 3.6 - 5.0 [facility] Chloride [Moles/volume] in Serum or Plasma 100 mEq/L 98 - 107 [facility] Carbon dioxide, total [Moles/volume] in Serum or Plasma 30 MEQ/L 22 - 30 [facility] Glucose [Mass/volume] in Serum or Plasma 98 MG/DL 65 - 110 [facility] BUN 14 MG/DL 7 - 21 [facility] Creatinine [Mass/volume] in Serum or Plasma 0.7 MG/DL 0.7 - 1.5 [facility] BUN/CREAT 20 8 - 27 [facility] al Protein [Mass/volume] in Serum or Plasma 5.9 G/DL 6.3 - 8.2 L [facility] Albumin [Mass/volume] in Serum or Plasma 3.6 G/DL 3.9 - 5.0 L [facility] Globulin [Mass/volume] in Serum by calculation 2.3 GM/DL 2.4 - 3.2 L [facility] A/G RATIO 1.6 0.8 - 2.0 [facility] Calcium [Mass/volume] in Serum or Plasma 9.2 MG/DL 8.4 - 10.2 [facility] Bilirubin.total [Mass/volume] in Serum or Plasma <0.7 MG/DL 0.2 - 1.3 [facility] Alkaline phosphatase [Enzymatic activity/volume] in Serum or Plasma 62 U/L 38 - 126 [facility] Aspartate aminotransferase [Enzymatic activity/volume] in Serum or Plasma 302 U/L 5 - 40 H [facility] Alanine aminotransferase [Enzymatic activity/volume] in Seru m or Plasma 125 U/L 7 - 56 H [facility] Anion gap 3 in Serum or Plasma 10.0 mmol/L 8.0 - 16.0 [facility] AGE 34 yrs [facility] Hospit al NON-AA GFR >60 mL/min [facility] Hosp ital AFR AMER GFR >60 mL/min [facility] Ho spital Male GFR In terprentation [...] >32 mL/min Normal ID Date Data Source [id number] 11/07/2019 02:27:00 AM EDT [facility] Name Value Range Interpretation Code Description Data [place] rce(s) Supporting Document(s) CBC W/AUTOMATED DIFF [facility] COMPLETE BLOOD COUNT Leukocytes [#/volume] in Blood by Automated count 8.3 10^3/uL 4.2 - 1 1.0 [facility] Erythrocytes [#/volume] in Blood by Automated count 3.87 10^6/uL 4. 20 - 5.40 L [facility] Hemoglobin [Mass/volume] in Blood 11.6 g/dL 12.0 - 16.0 L [facility] Hematocrit [Volume Fraction] of Blood by Automated count 36.0 % 3 7.0 - 47.0 L [facility] Erythrocyte mean corpuscular volume [Entitic volume] by Auto mated count 93.0 fL 81.0 - 101 [facility] Erythrocyte mean corpuscular hemoglobin [Entitic mass] by Automated count 30.0 pg 27.0 - 34.0 [facility] Erythrocyte mean corpuscular hemoglobin concentration [Mass/volume] by Automated count 32.2 g/dL 31.0 - 36.0 [facility] Erythrocyte distribution width [Ratio] by Automated count 13.3 % 11.5 - 14.5 [facility] Platelets [#/volume] in Blood by Automated count 271 10^3/uL 150 - 45 0 [facility] Platelet mean volume [Entitic volume] in Blood by Automated count 9.5 fL 7.4 - 10.4 [facility] Neutrophils/100 leukocytes in Blood by Automated count 82.6 % 37. 0 - 80.0 H [facility] Lymphocytes/100 leukocytes in Blood by Manual count 14.3 % 25.0 - 40.0 L [facility] Monocytes/100 leukocytes in Blood by Automated count 1.6 % 3.0 - 8.0 L [facility] Eosinophils/100 leukocytes in Blood by Automated count 0.8 % 0.0 - 7.0 [facility] Basophils/100 leukocytes in Blood by Automated count 0.2 % 0.0 - 2.5 [facility] %IG 0.5 % 0.0 - 0.0 [facility] %NRBC 0.0 % 0.0 - 0.0 [facility] al Neutrophils [#/volume] in Blood by Automated count 6.85 10^3/uL 2.00 - 6.90 [facility] Lymphocytes [#/volume] in Blood by Automated count 1.19 10^3/uL 0.60 - 3.40 [facility] Monocytes [#/volume] in Blood by Automated count 0.13 10^3/uL 0.00 - 0.90 [facility] Eosinophils [#/volume] in Blood by Automated count 0.07 10^3/uL 0.00 - 0.70 [facility] Basophils [#/volume] in Blood by Automated count 0.02 10^3/uL 0.00 - 0.20 [facility] #IG 0.04 10^3/uL 0.00 - 0.10 [facility] ospital #NRBC 0.00 10^3/uL 0.00 - 0.00 [facility] ospital MANUAL DIFF NOT INDICATED [facility] RBC MORPH NOT INDICATED [facility] Ho spital ID Date Data Source [id number] 11/07/2019 03:14:00 AM EDT [facility] Name Value Range Interpretation Code Description Data [place] rce(s) Supporting Document(s) DRUG SCREEN URINE [facility] URINE DRUG SCREEN Amphetamine [Presence] in Urine by Screen method PRESUMP POS LISANDRA L: NEGATIVE [facility] BARBITURATES NEGATIVE NORMAL: NEGATIVE [facility] BENZO NEGATIVE NORMAL: NEGATIVE [facility] COCAINE NEGATIVE NORMAL: NEGATIVE [facility] Tetrahydrocannabinol [Presence] in Urine NEGATIVE NORMAL: NEGATIVE [facility] OPIATES NEGATIVE NORMAL: NEGATIVE [facility] Phencyclidine [Presence] in Urine by Screen method NEGATIVE NOR MAL: NEGATIVE [facility] \\BLDo\\URINE DRUG SCR EEN INTERPRETATION\\BLDx\\ THE CUTOFFF LEVELS FOR DETECTION ARE FOLLOWS: AMPHETAMINES 1000 ng/ml BARBITUARATES 200 ng/ml BENZODIAZEPINES 100 ng/ml THC 50 ng/ml PHENCYCLIDINE 25 ng/ml OPIATES 300 ng/ml COCAINE 300 ng/ml ALL POSITIVES ARE CONSIDERED PRESUMPTIVE POSITIVE CONFIRMATION WILL BE PERFORMED AT PHYSICIAN REQUEST. ID Date Data Source [id number] 11/07/2019 02:27:00 AM EDT [facility] Name Value Range Interpretation Code Description Data [place] rce(s) Supporting Document(s) [facility] COL[facility] yellow NORMAL: Yellow [facility] ospital CLARITY clear NORMAL: Clear [facility] Ho spital Specific gravity of Urine by Test strip 1.020 1.001 - 1.030 [facility] pH 6 5 - 9 [facility] al Glucose [Mass/volume] in Urine by Test strip NORM NORMAL: Negat [facility] Bilirubin.total [Presence] in Urine by Test strip NEG NORMAL: Negative [facility] Ketones [Presence] in Urine by Test strip NEG NORMAL: Negative [facility] Protein [Mass/volume] in Urine by Test strip NEG NORMAL: Negat [facility] Nitrite [Presence] in Urine by Test strip NEG NORMAL: Negative [facility] BLOOD NEG NORMAL: Negative [facility] Leukocyte esterase [Presence] in Urine by Test strip NEG LISANDRA L: Negative [facility] Urobilinogen [Mass/volume] in Urine by Test strip 1 less kenna n 1.0 mg/dL [facility] MICROSCOPIC Not Indicate [facility] H ospital ID Date Data Source [id number] 10/30/2019 10:27:00 AM EDT [facility] Name Value Range Interpretation Code Description Data [place] rce(s) Supporting Document(s) BG FASTING 132 mg/dL 70-100 H [facility] y Health TSH 0.526 microintl units/mL 0.358-3.740 [facility] ID Date Data Source [id number] 10/30/2019 10:27:00 AM EDT [facility] Name Value Range Interpretation Code Description Data [place] rce(s) Supporting Document(s) HCT 37.6 % 36.0-47.0 N [facility] HGB 11.8 g/dL 12.0-15.5 L [facility] MCH 31.4 G/DL pg 32.0-36.5 L [facility] MCHC 29.9 PG % 27.0-33.0 N [facility] PLATELETS 209 10 10*3/mm3 150-450 N [facility] RBC 3.94 10 10*6/mm3 4.00-5.40 L [facility] RDW 12.6 % 11.5-14.5 N [facility] WBC TOTAL 4.5 4.0-10.0 N [facility] ID Date Data Source [id number] 10/13/2019 03:25:00 PM EDT [facility] Name Value Range Interpretation Code Description Data [place] rce(s) Supporting Document(s) HCT 40.7 % 36.0-47.0 N [facility] HGB 13.3 g/dL 12.0-15.5 N [facility] MCH 32.7 G/DL pg 32.0-36.5 N [facility] MCHC 30.4 PG % 27.0-33.0 N [facility] PLATELETS 288 10 10*3/mm3 150-450 N [facility] RBC 4.37 10 10*6/mm3 4.00-5.40 N [facility] RDW 12.4 % 11.5-14.5 N [facility] WBC TOTAL 8.7 4.0-10.0 N [facility] ID Date Data Source [id number] 10/09/2019 02:09:00 AM EDT [facility] 1 OrderSheet [facility] Emergency Department [address] [place] [address] Phone #: ext- [phone] 10/09/2019 02:08 Patient: [...] rce(s) Supporting Document(s) ID Date Data Source [id number] 10/09/2019 02:09:00 AM EDT [facility] 1 Medication Reconciliation Report [facility] Emergency Department [address] [place] [address] Phone #: ext- [phone] 10/09/2019 02:08 Patient: [...] rce(s) Supporting Document(s) ID Date Data Source [id number] 10/09/2019 02:09:00 AM EDT [facility] 1 Medication Administration Record [facility] Emergency Department [address] [place] [address] Phone #: ext- [phone] 10/09/2019 02:08 Patient: BRUNA LEE Sex: F : 1985 Age: 34yWeight: 81.1 kgHeight/Length: 60 inBMI: 34.9ALLERGIES: Penicillins, Sulfa Antibiotics Date/Time Medication Administered Medication OrderedGiven IBUPROFEN [PO] Ibuprofen 800 mg PO X1 dose: 80627:39 10/09/2019 Dose: 800 mg Tablets PO mg (NOW x1)Meme Maldonado R.N. Name Value Range Interpretation Code Description Data [place] rce(s) Supporting Document(s) ID Date Data Source [id number] 10/09/2019 02:09:00 AM EDT [facility] 1 General Instructions [facility] Emergency Department [address] [place] [address] Phone #: ext- [phone] 10/09/2019 02:08 Patient: [...] INFORMATIONViral Pharyngitis (Sore Throat) 2 General Instructions [facility] Emergency Department [address] [place] [address] Phone #: ext- [phone] 10/09/2019 02:08 Patient: [...] glass of warm water. 3 General Instructions [facility] Emergency Department [address] [place] [address] Phone #: ext- [phone] 10/09/2019 02:08 Patient: BRUNA LEE [facility] [id number] Sex: F : 1985 Age: 34y Children [...] breathing or noisy breathing 4 General Instructions [facility] Emergency Department [address] [place] [address] Phone #: ext- [phone] 10/09/2019 02:08 Patient: BRUNA LEE Sex: F : 1985 Age: 34y Muffled voice New rash Other symptoms are getting worse [id number] [employer] [address] [place] [address]. All rights reserved. This information is not intended as asubstitute for professional medical care. Always follow your healthcare professional's instructions. You have been given the following additional information: Pharyngitis, Viral(Electronically signed by Evonne Hagen M.D. 10/09/2019 03:51) Name Value Range Interpretation Code Description Data [place] rce(s) Supporting Document(s) ID Date Data Source [id number] 10/09/2019 02:09:00 AM EDT [facility] 1 Clinical Report - Nurses [facility] Emergency Department [address] [place] [address] Phone #: ext- [phone] 10/09/2019 02:08 Patient: BRUNA LEE Sex: F : 1985 Age: 34yTRIAGEHistorian: EMS and patient.Triage time: 02:08 10/09/2019.Chief Complaint: SORE THROAT.This started just prior to arrival. The patient has had a hoarse voice.Treatment INFORMATION TECHNOLOGY INSTRUCTOR:Took Tylenol. (arthritis kind).EMS Treatment INFORMATION TECHNOLOGY INSTRUCTOR:See EMS report.SEPSIS SCREEN: SIRS Screen: heart rate greater than 90. Sepsis Screen negative. No suspected orconfirmed signs of infection present. --02:14 10/09/19 Meme Maldonado R.N.02:11 10/09/19. BP: 130/86. MAP: 100. HR: 105. RR: 18. O2 saturation: 100%. Temp: 98.5 F. Pain levelnow: 12/05. --02:14 10/09/19 Meme Maldonado R.N.Treatment INFORMATION TECHNOLOGY INSTRUCTOR:(Seen at [facility] for this issue within the last [...] Maldonado R.N.AllergiesPenicillins.(hives) 2 Clinical Report - Nurses [facility] Emergency Department [address] [place] [address] Phone #: ext- [phone] 10/09/2019 02:08 Patient: [...] Dental decay. 3 Clinical Report - Nurses [facility] Emergency Department [address] [place] [address] Phone #: ext- [phone] 10/09/2019 02:08 Patient: [...] Patient verbalized understanding. Written instructions provided in [place]. The patient was discharged by the physician. [...] rce(s) Supporting Document(s) ID Date Data Source [id number] 10/09/2019 02:09:00 AM EDT [facility] 1 Clinical Report - Physicians/Mid Levels [facility] Emergency Department [address] [place] [address] Phone #: ext- [phone] 10/09/2019 02:08 Patient: [...] (per EMS, pt is well known to [facility] ER for multiple ER visits for multiple somatic and psychiatric complaints; tonight, she complains of sore throat, hoarse voice, bugs on her skin, etc.; pt has therapist in [place]). Similar symptoms previously. Patient has had similar [...] Medications: 2 Clinical Report - Physicians/Mid Levels [facility] Emergency Department [address] [place] [address] Phone #: ext- [phone] 10/09/2019 02:08 Patient: [...] PROCEDURAL CONTROL VALID ){ KIT LOT # [id number] ){ KIT EXP DATE 728685 )The 3 Clinical Report - Physicians/Mid Levels [facility] Emergency Department [address] [place] [address] Phone #: ext- [phone] 10/09/2019 02:08 Patient: [...] accurately reflects the information [facility] This report was requested by: Evonne Hagen Reference #: [id number] Others' Prescriptions Patient Name: Bruna LeeBirth Date: 1985 Address: [address] [place], [place] [address]Sex: Female Rx Written Rx Dispensed Drug Quantity [...] film 56 28 MoehJose J hopson MD [facility] 05/01/2019 05/01/2019 [...] #15 4 Clinical Report - Physicians/Mid Levels [facility] Emergency Department [address] [place] [address] Phone #: [phone]- [phone] 10/09/2019 02:08 Patient: BRUNA LEE [facility]#: [id number] Sex: F : 1985 Age: 34y 11/12/2018 [...] unknown*. 5 Clinical Report - Physicians/Mid Levels [facility] Emergency Department [address] [place] [address] Phone #: ext- [phone] 10/09/2019 02:08 Patient: [...] Name Value Range Interpretation Code Description Data [facility] rce(s) Supporting Document(s) ID Date Data Source [id number] 10/09/2019 03:02:00 AM EDT [facility] Name Value Range Interpretation Code Description Data [facility](s) Supporting Document(s) RAPID STREP NEGATIVE NORMAL: NEGATIVE [facility] RAPID STREP REENTER NEGATIVE NORMAL: NEGATIVE [facility] { PROCEDURAL CONTROL VALID ){ KIT LOT # [id number] ){ KIT EXP DATE 696943 )The Strep A 2 assay utilizes isothermal [...] basis for treatment. ID Date Data Source [id number] 09/22/2019 02:34:28 PM EDT [facility] Measurements & CalculationsHeight: 61 [...] (ER) or urgent care clinic? Yes - [facility] Have you seen another healthcare provider? Yes - [facility] Have you seen a dentist? NoIntake [...] and this is different. Sees [facility] for her mental health issues (schizophrenia) and feels that this is going well.HPI performed by: Francesco Ritchie MD, September 22, 2019 2:52 PMTransitions of Care InboundProblem ReviewProblem List was reviewed and/or updated during this visit.Medication Reconciliation & ReviewMedication List was reviewed and/or updated during this visit, including review of any tvpi-wws-hvfllsb medications, herbal therapies, and/or supplements.Allergy ReviewAllergy List [...] Plan Problems:Added: Hematemesis - cause unknown (ICD-578.0) (HGL19-A11.0) Assessment: Instructions: Currently asymptomatic but worrisome enough to warrant further workup.Avoid NSAIDs and refer to GI.Return to ER if this occurs again.Assessed:Peripheral neuropathy (ICD-356.9) (BJW62-M96.9) Assessment: Instructions: I am not sure where [...] (Critical)Orders:Adult - Ofc Vst, EST, Level III [CPT-84885] Gastroenterology Consult [CPT-39205] Medications:GABAPENTIN 400 MG ORAL CAPSULE (GABAPENTIN) take one tablet by mouth three times daily as needed #90[Capsule] x 0 Route:ORAL Entered and Authorized by: Francesco Ritchie MD Method used: Electronically to [facility] (retail) [address] [place] [address] Note to Pharmacy: Route: ORAL; Indications: PERIPHERAL NEUROPATHY;BILATERAL CARPAL TUNNEL SYNDROME RxID: [id number] 1000 MG ORAL TABLET (LEVETIRACETAM) 1 pill po bid #60[Tablet] x 0 Route:ORAL Entered and Authorized by: Francesco Ritchie MD Method used: Electronically to [facility] (retail) [address] [place] [address] Note to Pharmacy: Route: ORAL; RxID: [id number] SUCCINATE 50 MG ORAL TABLET (SUMATRIPTAN SUCCINATE) take one tab po at the onset of headache. may repeat dose x one if no releif after two hours. #15[Tablet] x 0 Entered and Authorized by: Francesco Ritchie MD Method used: Electronically to [facility] (retail) [address] [place] [address] RxID: [id number] OMEPRAZOLE 20 MG ORAL TABLET DELAYED RELEASE (OMEPRAZOLE) One tablet by mouth every day #30[Tablet] x 2 Route:ORAL Entered and Authorized by: Francesco Ritchie MD Method used: Electronically to [facility] (retail) [address] [place] [address] Note to Pharmacy: Route: ORAL; RxID: [id number] DOXYCYCLINE MONOHYDRATE 100 MG ORAL TABLET (DOXYCYCLINE MONOHYDRATE) take one tablet by mouth twice daily x 5 days #10[Tablet] x 0 Route:ORAL Entered by: Demetria Elliott MA Authorized by: Mavis DIEGO Method used: Electronically to [facility] (retail) [address] [place] [address] RxID: [id number] signed by Francesco Ritchie MD on 09/22/2019 at 5:42 PM Name Value Range Interpretation Code Description Data [place] rce(s) Supporting Document(s) ID Date Data Source [id number] 09/10/2019 10:45:00 PM EDT [facility] Name Value Range Interpretation Code Description Data [place] rce(s) Supporting Document(s) BG FASTING 96 mg/dL 70-100 [facility] Health ID Date Data Source [id number] 09/10/2019 10:45:00 PM EDT [facility] Name Value Range Interpretation Code Description Data [place] rce(s) Supporting Document(s) HCT 37.4 % 36.0-47.0 [facility] Health HGB 12.1 g/dL 12.0-15.5 [facility] MCH 32.4 G/DL pg 32.0-36.5 [facility] MCHC 30.2 PG % 27.0-33.0 [facility] PLATELETS 244 10 10*3/mm3 150-450 [facility] RBC 4.01 10 10*6/mm3 4.00-5.40 [facility] RDW 12.8 % 11.5-14.5 [facility] WBC TOTAL 4.9 4.0-10.0 [facility] ID Date Data Source [id number] 05/20/2019 11:42:55 AM EDT [facility] Measurements & CalculationsHeight: 61 [...] you seen another healthcare provider? Yes - [facility] Have you seen a dentist? NoRate [...] during this visit, including review of any mmoz-jom-cvgzzsg medications, herbal therapies, and/or supplements.Allergy ReviewAllergy List [...] Problems:Added: Phlebitis and thrombophlebitis of unspecified site (WXC14-N30.9): right AC and right tibia Assessment: Instructions: May continue warm compresses 3-4 times daily as needed. Please try to keep extremities elevated. We have sent a prescription to your pharmacy today. Please take medication as prescribed. Please report any major side effects.Phlebitis and thrombophlebitis of unspecified site (AGK65-D97.9): right AC and right tibia Assessment: right foot and right forearmAssessed:Tobacco use (ICD-305.1) (VBQ09-X80.0) Assessment: Instructions: Please continue to try to quit smoking.Health Screening (ICD-V70.0) (IAB54-Y90.9) Assessment: Instructions: Fasting labs ordered for you today. Please return prior to your next visit to have labs drawn. Please fast for 8-10 hours prior.Substance abuse (ICD-305.90) (WDF59-D75.10) Assessment: Instructions: Please try to avoid the [...] (Critical)BACTRIM (Critical)* SULFA ANTIBIOTICS (Critical)Orders:COMP METABOLIC PANEL [CPT-17366] CBC W/DIFF [CPT- 51093] HgBA1c [CPT-74851] LIPID PANEL [CPT-71442] TSH [CPT-47795] T-4 free [CPT- 90477] Vitamin D 250H Unspecified [CPT-28320] URINALYSIS [CPT-80829] VITAMIN B- 12 [CPT-12899] Folate (Folic Acid Serum) [CPT-30841] IRON [CPT-75849] Adult - Ofc Vst, EST, Level III [CPT-04281] Follow-Up Return to clinic: 2-3 weeks for follow up Additional Follow-Up: If symptoms worsen, please return to clinic or the ERClinical Visit Summary CompletedMedications:DOXYCYCLINE MONOHYDRATE 100 MG ORAL TABLET (DOXYCYCLINE MONOHYDRATE) take one tablet by mouth twice daily x 5 days #10[Tablet] x 0 Route:ORAL Entered and Authorized by: Mavis DIEGO Method used: Electronically to [facility] (retail) [address] [place] [address] Note to Pharmacy: Route: ORAL; Indications: PHLEBITIS AND THROMBOPHLEBITIS OF UNSPECIFIED SITE RxID: [id number] signed by Mavis DIEGO on 05/24/2019 at 11:37 PM ____ Name Value Range Interpretation Code Description Data [place] rce(s) Supporting Document(s) Procedure Social History Code Duration Value Status Description Data Source(s ) Smoking 03/30/2020 12:00:00 AM EST Current Smoker completed Curre nt Smoker eCW1 ([facility]) Smoking 03/30/2020 12:00:00 AM EST Current Smoker completed Curre nt Smoker eCW1 ([facility]) Smoking 03/30/2020 12:00:00 AM EST Current Smoker completed Curre nt Smoker eCW1 ([facility]) Smoking 03/30/2020 12:00:00 AM EST Current Smoker completed Curre nt Smoker eCW1 ([facility]) Smoking 03/01/2020 12:00:00 AM EST Current Smoker completed Curre nt Smoker eCW1 ([facility]) Smoking 03/01/2020 12:00:00 AM EST Current Smoker completed Curre nt Smoker eCW1 ([facility]) Smoking 03/01/2020 12:00:00 AM EST Current Smoker completed Curre nt Smoker eCW1 ([facility]) Smoking 02/18/2020 12:00:00 AM EST Current Smoker completed Curre nt Smoker eCW1 ([facility]) Smoking 12/24/2019 12:00:00 AM EDT Current Smoker completed Curre nt Smoker eCW1 ([facility]) Smoking 12/24/2019 12:00:00 AM EDT Current Smoker completed Curre nt Smoker eCW1 ([facility]) Smoking 12/24/2019 12:00:00 AM EDT Current Smoker completed Curre nt Smoker eCW1 ([facility]) Smoking 12/24/2019 12:00:00 AM EDT Current Smoker completed Curre nt Smoker eCW1 ([facility]) Smoking 12/24/2019 12:00:00 AM EDT Current Smoker completed Curre nt Smoker eCW1 ([facility]) Smoking 12/24/2019 12:00:00 AM EDT Current Smoker completed Curre nt Smoker eCW1 ([facility]) Smoking 12/24/2019 12:00:00 AM EDT Current Smoker completed Curre nt Smoker eCW1 ([facility]) Smoking 10/31/2019 12:00:00 AM EDT Current Smoker completed Curre nt Smoker eCW1 ([facility]) Smoking 10/31/2019 12:00:00 AM EDT Current Smoker completed Curre nt Smoker eCW1 ([facility]) Smoking 10/31/2019 12:00:00 AM EDT Current Smoker completed Curre nt Smoker eCW1 ([facility]) Vital Signs ID Date Data Source UNK Name Value Range Interpretation Code Description Data Source(s) Oxygen saturation in Arterial blood by Pulse oximetry 98 % 98 % eCW1 ([facility]) Respiratory rate 18 /min 18 /min eCW1 ([facility]) Heart rate 119 /min 119 /min eCW1 ([facility]) Body mass index (BMI) [Ratio] 35.74 kg/m2 35.74 kg/m2 eCW1 ([facility]) Body weight 183.0 [lb_av] 183.0 [lb_av] eCW1 ([facility]) Body height 60.0 [in_i] 60.0 [in_i] eCW1 ([facility]) Oxygen saturation in Arterial blood by Pulse oximetry 99 % 99 % eCW1 ([facility]) Respiratory rate 18 /min 18 /min eCW1 ([facility]) Heart rate 93 /min 93 /min eCW1 ([facility]) Body mass index (BMI) [Ratio] 35.27 kg/m2 35.27 kg/m2 eCW1 ([facility]) Body weight 180.6 [lb_av] 180.6 [lb_av] eCW1 ([facility]) Body height 60 [in_i] 60 [in_i] eCW1 ([facility]) Oxygen saturation in Arterial blood by Pulse oximetry 97 % 97 % eCW1 ([facility]) Respiratory rate 18 /min 18 /min eCW1 ([facility]) Heart rate 89 /min 89 /min eCW1 ([facility]) Body mass index (BMI) [Ratio] 36.48 kg/m2 36.48 kg/m2 eCW1 ([facility]) Body weight 186.8 [lb_av] 186.8 [lb_av] eCW1 ([facility]) Body height 60 [in_i] 60 [in_i] eCW1 ([facility]) Body height 60 [in_i] 60 [in_i] eCW1 ([facility]) Oxygen saturation in Arterial blood by Pulse oximetry 98 % 98 % eCW1 ([facility]) Respiratory rate 18 /min 18 /min eCW1 ([facility]) Heart rate 86 /min 86 /min eCW1 ([facility]) Body temperature 98.0 [degF] 98.0 [degF] eCW1 ( [facility]) Body mass index (BMI) [Ratio] 32.10 kg/m2 32.10 kg/m2 eCW1 ([facility]) Body weight 164.4 [lb_av] 164.4 [lb_av] eCW1 ([facility]) Oxygen saturation in Arterial blood by Pulse oximetry 99 % 99 % eCW1 ([facility]) Respiratory rate 18 /min 18 /min eCW1 ([facility]) Heart rate 100 /min 100 /min eCW1 ([facility]) Body temperature 98.7 [degF] 98.7 [degF] eCW1 ( [facility]) Body mass index (BMI) [Ratio] 30.70 kg/m2 30.70 kg/m2 eCW1 ([facility]) Body weight 157.2 [lb_av] 157.2 [lb_av] eCW1 ([facility]) Body height 60 [in_i] 60 [in_i] eCW1 ([facility]) ID Date Data Source [id number] 12/26/2019 01:56:00 PM EDT [facility] Name Value Range Interpretation Code Description Data Source(s) WEIGHT 72.3 kilos 72.3 kilos [facility] HEIGHT 152.4 centimeters 152.4 centimeters [facility] WEIGHT 75 kilos 75 kilos [facility] HEIGHT 152.4 centimeters 152.4 centimeters [facility] ID Date Data Source [id number] 12/10/2019 06:07:00 AM EDT [facility] Name Value Range Interpretation Code Description Data Source(s) WEIGHT 68 kilos 68 kilos [facility] HEIGHT 152.4 centimeters 152.4 centimeters [facility] WEIGHT 68.4 kilos 68.4 kilos [facility] HEIGHT 152.4 centimeters 152.4 centimeters [facility] ID Date Data Source [id number] 12/08/2019 01:43:00 PM EDT [facility] Name Value Range Interpretation Code Description Data Source(s) WEIGHT 75 kilos 75 kilos [facility] HEIGHT 152.4 centimeters 152.4 centimeters [facility] ID Date Data Source [id number] 12/08/2019 01:43:[facility] Value Range Interpretation Code Description Data Source(s) WEIGHT 74 kilos 74 kilos [facility] HEIGHT 160.02 centimeters 160.02 centimeter s [facility] Patient Treatment Plan of Care Planned Activity Planned Date Details Description Data Source (s) Doxepin Hydrochloride 25 MG Oral Capsule 03/09/2020 12:00:00 AM EST eCW1 ([facility]) Doxepin Hydrochloride 25 MG Oral Capsule 03/09/2020 12:00:00 AM EST eCW1 ([facility]) Doxepin Hydrochloride 25 MG Oral Capsule 03/09/2020 12:00:00 AM EST eCW1 ([facility]) Clonidine Hydrochloride 0.2 MG Oral Tablet 12/24/2019 12:00:00 AM E DT eCW1 ([facility]) Clonidine Hydrochloride 0.2 MG Oral Tablet 12/24/2019 12:00:00 AM E DT eCW1 ([facility]) Clonidine Hydrochloride 0.2 MG Oral Tablet 12/24/2019 12:00:00 AM E DT eCW1 ([facility]) Clonidine Hydrochloride 0.2 MG Oral Tablet 12/24/2019 12:00:00 AM E DT eCW1 ([facility]) Clonidine Hydrochloride 0.2 MG Oral Tablet 12/24/2019 12:00:00 AM E DT eCW1 ([facility]) Clonidine Hydrochloride 0.2 MG Oral Tablet 12/24/2019 12:00:00 AM E DT eCW1 ([facility]) Clonidine Hydrochloride 0.2 MG Oral Tablet 12/24/2019 12:00:00 AM E DT eCW1 ([facility]) lisdexamfetamine dimesylate 50 MG Oral Capsule [Vyvans e] 11/04/2019 12:00:00 AM EDT eCW1 ([facility]) Clonazepam 0.5 MG Oral Tablet 11/04/2019 12:00:00 AM EDT eCW1 ([facility]) Citalopram 20 MG Oral Tablet [Celexa] 11/04/2019 12:00:00 AM EDT eCW1 ([facility]) Risperidone 3 MG Oral Tablet [Risperdal] 07/07/2019 12:00:00 AM EDT eCW1 ([facility]) Risperidone 3 MG Oral Tablet [Risperdal] 07/07/2019 12:00:00 AM EDT eCW1 ([facility]) Risperidone 2 MG Oral Tablet [Risperdal] 07/07/2019 12:00:00 AM EDT eCW1 ([facility]) Risperidone 2 MG Oral Tablet [Risperdal] 07/07/2019 12:00:00 AM EDT eCW1 ([facility]) Risperidone 3 MG Oral Tablet [Risperdal] 07/07/2019 12:00:00 AM EDT eCW1 ([facility])
[2020-04-10 15:27] VITALS: BP 136/77
[2020-04-10] MEDS ORDERED: LORazepam 2 MG/ML VIAL IM STA ×2 (15:29→15:55)
[2020-04-10] MEDS ORDERED: LORazepam 2 MG TAB PO ONE (18:00)
== END 2020-04-10 18:10 | disposition home or self-care (01) ==
LOC: M ED 14:38
DX: F22 Delusional disorders (principal); F15.10 Other stimulant abuse, uncomplicated; F16.10 Hallucinogen abuse, uncomplicated; F17.200 Nicotine dependence, unspecified, uncomplicated; B18.2 Chronic viral hepatitis C; U07.1 COVID-19; Z79.899 Other long term (current) drug therapy; Z88.0 Allergy status to penicillin; Z88.6 Allergy status to analgesic agent; Z88.8 Allergy status to other drugs, medicaments and biological substances
CPT/HCPCS: 96372; 99284; J2060; U0002

== ENCOUNTER 2020-04-11 17:10 | Emergency (ER) | payer OTHER ==
[2020-04-11] MEDS ORDERED: NS 1,000 ML IV ONE (17:45)
[2020-04-11 17:59] LABS: BASO % 0.2 % (0.0-1.0); HEMATOCRIT 40.2 % (36.0-47.0); HEMOGLOBIN 12.8 g/dl (12.0-15.5); MEAN CORPUSCULAR HGB CONC 31.8 g/dl (32.0-36.5); MEAN CORPUSCULAR VOLUME 91.2 fl (80.0-96.0); MONO # 0.5 10^3/uL (0.0-0.8); NEUTROPHILS % 67.1 % (36.0-66.0); PLATELET COUNT, AUTOMATED 243 10^3/uL (150-450); RED BLOOD COUNT 4.41 10^6/uL (4.00-5.40); WHITE BLOOD COUNT 4.5 10^3/uL (4.0-10.0)
--- OUTSIDE RECORDS SUMMARY | 2020-04-11 18:14 | CCD ---
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 12 Active confirmed 31999256 Problem Methamphetamine abuse F15.10 Active confirmed 798539114 Problem Opioid abuse F11.10 Active confirmed 1884835 Problem Opioid use disorder, severe, in sustained remission, on maintenance therapy F11.21 Active confirmed 083783838 Problem Cannabis abuse F12.10 Active confirmed 75293 009 Problem Gastroesophageal reflux disease, esophagitis pre sence not specified K21.9 Active confirmed 297085883 Problem BMI 30.0-30.9,adult Z68.30 Active confirmed 811340069 Problem Obesity (BMI 30.0-34.9) E66.9 Active confirmed 658548019945092 Problem Tongue sore K14.6 Active confirmed 86974630 Problem Binge eating disorder F50.81 Active confirmed 711832076 Problem Polysubstance abuse F19.10 Active confirmed 044374864 Problem Schizoaffective disorder F25.9 Active confirmed 17447220 Problem Tobacco dependence F17.200 Active confirmed 37990600 Problem Oropharyngeal dysphagia R13.12 Active confirmed 51643633 Problem Carpal tunnel syndrome, bilateral G56.03 Active confirmed [id number] Problem History of drug abuse F19.11 Active confirmed 105652678 ALLERGIES Allergen (clinical drug ingredient) Drug/Non Drug Allergy do cumented on EMR Reaction Allergy Type Onset Date Status haloperidol Haldol([facility] Code:[address]-79) Unknown Drug Allergy Active olanzapine Zyprexa([facility] Code:[address]-17) Unknown Drug Allergy Active amoxicillin Amoxicillin([facility] Code:[address]-17) Unknown Drug Aller gy Active penicillin G Penicillin G Sodium([facility] Code:[address]-90) Unknown D rug Allergy Active sulfamethoxazole / trimethoprim Bactrim([facility] Code:[address]-69) Unknown Drug Allergy Active Sulfacet-R Unknown Drug Allergy Active ENCOUNTERS from 1987 to 2020-04-09 Encounter Location Date Provider Diagnosis [address] [address] Mar, Nitza Box Encounter for pre-operative examination Z01.818 IMMUNIZATIONS No Information SOCIAL HISTORY Tobacco Use: [...] Information RESULTS No Results REASON FOR VISIT PRE-OP COVID-19 TEST MEDICAL (GENERAL) HISTORY Type Description Date Medical History bilateral carpal tunnel Medical History Seizure Medical History GERD Surgical History hernia repair 2012 Hospitalization History drug overdose 2019 Goals Section No Information Health Concerns No Information MEDICAL EQUIPMENT No Information MENTAL STATUS No Information FUNCTIONAL STATUS No Information ASSESSMENTS Encounter Date Diagnosis Assessment Notes Treatment Notes Treatm ent Clinical Notes Mar, Encounter for pre-operative examination (ICD-10 - Z01.818) PLAN OF TREATMENT Medication Medication Name Sig [...] Orally Once a day for 30 day(s) Treatment Notes Test Name Order Date COVID-19 IN-HOUSE 2020-04-08 Next Appt Details Provider Name:Aliyah Vazquez, 04-13 03:20:00 PM, [address] [place] [address], [id number], Provider Name:Jena Lawson, 2020-04-20 03:00:00 PM, [address] [place] [address], [id number], Provider Name:Gasper Marquez, 04-23 02:00:00 PM, [address] [place], [address], Insurance Providers Payer Name Payer Address Payer Phone Insured Name Patient Relati onship to Insured Coverage Start Date Coverage End Date [facility] - [employer] [address] [facility] [address] Desire,Melissa self
--- OUTSIDE RECORDS SUMMARY | 2020-04-11 18:16 | CCD ---
Author Author [facility] Organization [facility] Address Unknown Phone Unavailable Care Team Providers Care Cell Feed Department Supervisor Name Role Phone Kori FLORES Unavailable [...] Jeremie HOGAN MD Unavailable Unavailable JESICA, @ [facility] Unavailable Unavailable BEHZAD HOGAN MD Unavailable Unavailable Ching, Reginah W Kassidy FIRST RESPONDER-C Unavailable Unavailabl e Ching, Reginah W Kassidy FIRST RESPONDER-C Unavailable Unavailabl e Ching, Reginah W Kassidy FIRST RESPONDER-C Unavailable Unavailabl e Ching, Reginah W Kassidy FIRST RESPONDER-C Unavailable Unavailabl e Ching, Reginah W Kassidy FIRST RESPONDER-C Unavailable Unavailabl e Ching, Reginah W Kassidy FIRST RESPONDER-C Unavailable Unavailabl e Ching, Reginah W Kassidy FIRST RESPONDER-C Unavailable Unavailabl e Ching, Reginah W Kassidy FIRST RESPONDER-C Unavailable Unavailabl e Ching, Reginah W Kassidy FIRST RESPONDER-C Unavailable Unavailabl e Ching, Reginah W Kassidy FIRST RESPONDER-C Unavailable Unavailabl e Ching, Reginah W Kassidy FIRST RESPONDER-C Unavailable Unavailabl e Ching, Reginah W Kassidy FIRST RESPONDER-C Unavailable Unavailabl e Ching, Reginah W Kassidy FIRST RESPONDER-C Unavailable Unavailabl e Ching, Reginah W Kassidy FIRST RESPONDER-C Unavailable Unavailabl e Ching, Reginah W Kassidy FIRST RESPONDER-C Unavailable Unavailabl e Ching, Reginah W Kassidy FIRST RESPONDER-C Unavailable Unavailabl e Ching, Elijah Yi FIRST RESPONDER-C Unavailable Unavailabl e Ching, Elijah Yi FIRST RESPONDER-C Unavailable Unavailabl e Ching, Elijah Yi FIRST RESPONDER-C Unavailable Unavailabl e Ching, Elijah Yi FIRST RESPONDER-C Unavailable Unavailabl e Ching, Elijah Yi FIRST RESPONDER-C Unavailable Unavailabl e Ching, Elijah Yi FIRST RESPONDER-C Unavailable Unavailabl e Ching, Elijah Yi FIRST RESPONDER-C Unavailable Unavailabl e Ching, Elijah Yi FIRST RESPONDER-C Unavailable Unavailabl e Ching, Elijah Yi FIRST RESPONDER-C Unavailable Unavailabl e Ching, Elijah Yi FIRST RESPONDER-C Unavailable Unavailabl e Ching, Elijah Yi FIRST RESPONDER-C Unavailable Unavailabl e Ching, Elijah Yi FIRST RESPONDER-C Unavailable Unavailabl e Ching, Elijah Yi FIRST RESPONDER-C Unavailable Unavailabl e Ching, Elijah Yi FIRST RESPONDER-C Unavailable Unavailabl e Ching, Elijah Yi FIRST RESPONDER-C Unavailable Unavailabl e Ching, Elijah Yi FIRST RESPONDER-C Unavailable Unavailabl e Lino Marie MD Unavailable [...] BROWN, L JANE Unavailable Unavailable DESJARLAIS, KAROLYN ASSISTANT BROKER Unavailable Unavailable DESJARLAIS, KAROLYN ASSISTANT BROKER Unavailable Unavailable DESJARLAIS, AKROLYN ASSISTANT BROKER Unavailable Unavailable DESJARLAIS, KAROLYN ASSISTANT BROKER Unavailable Unavailable DESJARLAIS, KAROLYN ASSISTANT BROKER Unavailable Unavailable DESJARLAIS, KAROLYN ASSISTANT BROKER Unavailable Unavailable DESJARLAIS, KAROLYN ASSISTANT BROKER Unavailable Unavailable DESJARLAIS, KAROLYN ASSISTANT BROKER Unavailable Unavailable DESJARLAIS, KAROLYN ASSISTANT BROKER Unavailable Unavailable MAHESH RECINOS Unavailable Unavailable Lester, Mavis FIRST RESPONDER FIRST RESPONDER Unavailable Unavailable Lester, A Mavis FIRST RESPONDER Unavailable Unavailable Lester, A Mavis FIRST RESPONDER Unavailable Unavailable Lester, A Mavis FIRST RESPONDER Unavailable Unavailable Lester, A Mavis FIRST RESPONDER Unavailable Unavailable Lester, A Mavis FIRST RESPONDER Unavailable Unavailable Lester, A Mavis FIRST RESPONDER Unavailable Unavailable Lester, A Mavis FIRST RESPONDER Unavailable Unavailable Lester, A Mavis FIRST RESPONDER Unavailable Unavailable Lester, A Mavis FIRST RESPONDER Unavailable Unavailable Lester, A Mavis FIRST RESPONDER Unavailable Unavailable Lester, A Mavis FIRST RESPONDER Unavailable Unavailable Lester, A Mavis FIRST RESPONDER Unavailable Unavailable Lester, A Mavis FIRST RESPONDER Unavailable Unavailable Lester, A Mavis FIRST RESPONDER Unavailable Unavailable Lester, A Mavis FIRST RESPONDER Unavailable Unavailable Lester, A Mavis FIRST RESPONDER Unavailable Unavailable Lester, A Mavis FIRST RESPONDER Unavailable Unavailable Lester, A Mavis FIRST RESPONDER Unavailable Unavailable Lester, A Mavis FIRST RESPONDER Unavailable Unavailable Lester, A Mavis FIRST RESPONDER Unavailable Unavailable Lester, A Mavis FIRST RESPONDER Unavailable Unavailable Lester, A Mavis FIRST RESPONDER Unavailable Unavailable Lester, A Mavis FIRST RESPONDER Unavailable Unavailable Lester, A Mavis FIRST RESPONDER Unavailable Unavailable Lester, A Mavis FIRST RESPONDER Unavailable Unavailable Lester, A Mavis FIRST RESPONDER Unavailable Unavailable Lester, A Mavis FIRST RESPONDER Unavailable Unavailable Lester, A Mavis FIRST RESPONDER Unavailable Unavailable BLUM, KATRIN Unavailable Unavailable Re-disclosure [...] is protected by Article 27-F of the [facility] Public Health law. If you continue you may have access to information: Regarding HIV / AIDS; Provided by facilities licensed or operated by the [facility] Office of Mental Health; or Provided by the [facility] Office for People With Developmental Disabilities. If such information is present, then the following [facility] mandated warning applies: This [...] law may result in a fine or half-way sentence or both. A general authorization for the release of medical or other information is NOT sufficient authorization for further disc losure. Allergies and Adverse Reactions Type Description Substance Reaction Status Data Source(s ) Drug allergy Drug allergy AMOXICLIIN SWELLING, HIVES R [facility] Drug allergy olanzapine ol[facility]apine [facility] Drug allergy trimethoprim trimethoprim "BLISTERS IN MOUTH" [facility] Drug allergy sulfamethoxazole sulfamethoxazole "BLISTERS IN MOUTH" [facility] Drug allergy haloperidol haloperidol [facility] Drug allergy Sulfa (Sulfonamide Antibiotics) Sulfa (Sulfonami de Antibiotics) "BLISTERS IN MOUTH" [facility] Drug allergy Penicillins Penicillins SWELLING, HIVES [facility] Encounters Encounter Providers Location Date Indications Data Source(s ) Outpatient Attender: FAHAD MOONEY 04/15/2020 09:45:0 0 AM [facility] 04/08/2020 12:00:00 AM EST [facility] ([facility]) [facility]patient [facility] 04/08/2020 12:00:00 AM EST eCW1 ([facility]) [facility]patient [facility] 04/05/2020 12:00:00 AM EST eCW1 ([facility]) Outpatient Attender: NATHAN PAUL PA-C 03/30/2020 10:30:00 AM [facility] Outpatient Attender: Shira Youngblood PA-C 03/30/2020 10:18 :00 AM [facility] 03/30/2020 12:00:00 AM EST eC1 ([facility]) Outpatient Attender: JANE EDWARD 03/23/2020 02:00:00 PM [facility] Outpatient Attender: JANE EDWARD 03/17/2020 10:30:00 AM [facility] Outpatient Attender: JANE EDWARD 03/11/2020 04:00:00 PM [facility] Preadmit Attender: FAHAD MOONEY 03/11/2020 06:30:0 0 AM [facility] Outpatient Attender: KAROLYN VAN NP 03/09/2020 03: 40:00 PM [facility] 03/03/2020 12:00:00 AM EST eCW1 ([facility]) Outpatient Attender: Shira Becerraferrer: Shira Youngblood PA-C EMERGENCY ROOM-LAB 03/01/2020 04:49:00 PM EST - 03/01/2020 04:49:00 PM [facility] Outpatient Attender: Shira Youngblood PA-C 03/01/2020 03:45 :00 PM [facility] 03/01/2020 12:00:00 AM EST eCW1 ([facility]) [facility]patient [facility] 03/01/2020 12:00:00 AM EST eCW1 ([facility]) Outpatient Attender: KAROLYN VAN NP 02/18/2020 02: 40:00 PM [facility] Outpatient Attender: Kassidy SERRANO 02/18/2020 10:00:0 0 AM [facility] 02/18/2020 12:00:00 AM EST eCW1 ([facility]) [facility]patient [facility] 02/10/2020 12:00:00 AM EST eCW1 ([facility]) [facility]patient [facility] 02/03/2020 12:00:00 AM EST eCW1 ([facility]) [facility]patient [facility] 01/14/2020 12:00:00 AM EST eCW1 ([facility]) [facility]patient [facility] 01/06/2020 12:00:00 AM EST eCW1 ([facility]) Outpatient Attender: JOHNATHON PATEL 01/02/2020 10:06:00 A [facility] Outpatient [facility] 01/02/2020 12:00:00 AM EST eCW1 ([facility]) Outpatient Attender: JANE EDWARD 01/01/2020 02:30:00 PM [facility] Outpatient Attender: KAROLYN VAN NP 12/24/2019 11: 00:00 AM [facility] Outpatient Attender: Shira Youngblood PA-C 12/24/2019 08:24 :00 AM EDT [facility] 12/24/2019 12:00:00 AM EDT eCW1 ([facility]) Outpatient Attender: JANE EDWARD 12/23/2019 01:54:00 PM E [facility]patient [facility] 12/23/2019 12:00:00 AM EDT eCW1 ([facility]) Outpatient Attender: Mavis DIEGO FP 12/12/2019 11:3 5:02 AM EDT [facility] Outpatient Attender: JANE EDWARD 12/11/2019 03:00:00 PM E DT [facility]patient [facility] 12/09/2019 12:00:00 AM EDT eCW1 ([facility]) Outpatient Attender: Mavis DIEGO FP 12/05/2019 01:2 6:01 PM EDT [facility] Inpatient Attender: PRERNA RIOS MDAdmitter: PRERNA Hopson MD ER-3RD 12/05/2019 10:08:00 AM EDT - 12/10/2019 01:07:00 PM EDT [facility] Patient discharged. Outpatient Attender: NATHAN PAUL PA-C 12/05/2019 09:03:00 AM [facility] Admission cancelled. Disregard status an d admitted date. Inpatient Attender: BEHZAD HOGAN MD Attender: BEHZAD HOGAN MDAttender: DIOGENES BUENO MDAttender: DIOGENES BUENO MDAdmitter: BEHZAD HOGAN MD ER-ICU 12/04/2019 11:06:00 PM EDT - 12/05/2019 10:03:00 AM EDT [facility] Patient discharged. Emergency Attender: GINGER Salaser: Melissa Youngblood PA-C EMERGENCY ROOM-ER 12/04/2019 04:21:00 PM EDT - 12/04/2019 08:40:00 PM EDT [facility] Patient discharged. Outpatient Attender: KAROLYN VAN NP 12/04/2019 03: 11:00 PM T [facility] Outpatient Attender: Mavis DIEGO FP 11/29/2019 07:0 4:03 PM EDT [facility] Outpatient Attender: JOHNATHON PATEL 11/29/2019 07:04:01 P M EDT [facility] Outpatient Attender: Mavis PATEL 11/24/2019 12:2 9:00 PM EDT [facility] Emergency Attender: EVONNE HAGENConsultant: STAFF NON 11/07/2019 12:19:00 AM EDT - 11/07/2019 04:20:00 AM EDT [facility] Patient discharged. [facility]patient [facility] 11/07/2019 12:00:00 AM EDT eCW1 ([facility]) Outpatient Attender: Mavis DIEGO FP 11/04/2019 02:2 6:02 PM EDT [facility] Outpatient Attender: KAROLYN VAN NP 11/04/2019 11: 40:00 AM EDT [facility] Outpatient Attender: Mavis DIEGO FP 11/02/2019 01:2 6:00 PM EDT [facility] Outpatient Attender: Mavis PATEL 10/31/2019 06:0 2:00 PM EDT [facility] Outpatient Attender: JOHNATHON DIEGO FP 10/31/2019 06:01:59 P M EDT [facility] Outpatient Attender: Mavis DIEGO FP 10/31/2019 06:0 1:03 PM EDT [facility] Outpatient Attender: JOHNATHON DIEGO FP 10/31/2019 06:01:01 P M EDT [facility] Outpatient Attender: Shira Youngblood PA-C 10/31/2019 09:06 :00 AM EDT [facility] 10/31/2019 12:00:00 AM EDT eCW1 ([facility]) Outpatient Attender: JANE EDWARD 10/27/2019 11:00:00 AM E [facility] Outpatient Attender: KAROLYN VAN NP 10/21/2019 03: 20:00 PM EDT [facility] Emergency Attender: EVONNE Garzasultant: STAFF NON 10/09/2019 02:09:00 AM EDT - 10/09/2019 03:44:00 AM EDT [facility] Patient discharged. Outpatient Attender: KATRIN BLUM 10/06/2019 09:37:00 AM ED T [facility] Outpatient Attender: Mavis DIEGO FP 09/25/2019 04:0 9:01 PM EDT [facility] Outpatient Attender: Mavis PATEL 09/25/2019 04:0 7:59 PM EDT [facility] Outpatient Attender: JOHNATHON PATEL 09/23/2019 10:31:00 A M EDT [facility] Outpatient Attender: JOHNATHON TRUJILLOP FP 09/23/2019 10:30:01 A M EDT [facility] Outpatient Attender: JOHNATHON TRUJILLOP FP 09/23/2019 12:02:09 A M EDT [facility] Outpatient Attender: JOHNATHON TRUJILLOP FP 09/22/2019 05:44:02 P M EDT [facility] Outpatient Attender: Mavis TRUJILLOP FP 09/22/2019 05:4 2:59 PM EDT [facility] Outpatient Attender: JOHNATHON TRUJILLOP FP 09/22/2019 02:38:00 P M EDT [facility] Outpatient Attender: Mavis DIEGO FP 09/22/2019 12:0 5:01 PM EDT [facility] Outpatient Attender: JOHNATHON TRUJILLOP FP 09/22/2019 07:56:01 A M EDT [facility] Outpatient Attender: Mavis TRUJILLOP FP 09/16/2019 05:0 8:02 AM EDT [facility] Outpatient Attender: Mavis TRUJILLOP FP 09/14/2019 05:1 9:00 PM EDT [facility] Outpatient Attender: JOHNATHON TRUJILLOP FP 09/14/2019 05:19:00 P M EDT [facility] Outpatient Attender: Mavis TRUJILLOP FP 09/12/2019 11:5 3:00 AM EDT [facility] Outpatient Attender: Mavis DIEGO FP 09/10/2019 11:0 6:01 PM EDT [facility] Outpatient Attender: JOHNATHON TRUJILLOP FP 09/10/2019 11:06:01 P M EDT [facility] Outpatient Referrer: Femi Marie MD 08/15/2019 05:44:00 A M EDT [facility] Outpatient Attender: Mavis DIEGO FP 08/06/2019 09:5 2:01 AM EDT [facility] Outpatient Attender: JOHNATHON DIEGO FP 08/05/2019 07:41:16 P M EDT [facility] Outpatient Attender: Mavis TRUJILLOP FP 08/05/2019 09:2 3:03 AM EDT [facility] Outpatient Attender: JOHNATHON DIEGO FP 08/05/2019 09:23:01 A M EDT [facility] Outpatient Attender: KATRIN BLUM 08/04/2019 09:42:00 AM ED [facility] Outpatient Attender: Mavis DIEGO FP 08/01/2019 10:3 1:00 AM EDT [facility] Outpatient Attender: Mavis DIEGO FP 08/01/2019 10:2 7:02 AM EDT [facility] Outpatient Attender: JOHNATHON DIEGO FP 07/30/2019 11:31:01 A M EDT [facility] Outpatient Attender: KATRIN BLUM 07/07/2019 03:30:00 PM ED [facility] Outpatient Attender: Mavis DIEGO FP 07/04/2019 10:3 3:02 AM EDT [facility] Outpatient Attender: Mavis DIEGO FP 07/03/2019 01:5 2:01 PM EDT [facility] Outpatient Attender: Mavis DIEGO FP 07/02/2019 10:2 8:02 AM EDT [facility] Outpatient Attender: Mavis DIEGO FP 07/01/2019 09:5 7:00 AM EDT [facility] Outpatient Attender: JOHNATHON DIEGO FP 07/01/2019 08:57:00 A M EDT [facility] Outpatient Referrer: Femi Marie MD 07/01/2019 04:55:00 A M EDT [facility] Outpatient Attender: JOHNATHON DIEGO FP 06/30/2019 04:21:00 P M EDT [facility] Outpatient Attender: Mavis DIEGO FP 06/22/2019 06:0 1:59 PM EDT [facility] Outpatient Attender: Mavis DIEGO FP 06/17/2019 03:3 2:01 PM EDT [facility] Outpatient Attender: JOHNATHON DIEGO FP 05/27/2019 12:22:00 P M EDT [facility] Outpatient Attender: Mavis DIEGO FP 05/24/2019 11:3 7:01 PM EDT [facility] Outpatient Attender: JOHNATHON DIEGO FP 05/20/2019 12:36:01 P M EDT [facility] Outpatient Attender: JOHNATHON DIEGO FP 05/20/2019 11:56:00 A M EDT [facility] Outpatient Attender: JOHNATHON Batista FIRST RESPONDER 05/20/2019 11:42:01 A M EDT [facility] Outpatient Attender: JOHNATHON TRUJILLOP FP 05/01/2019 03:31:00 P M [facility] Outpatient Att[facility]: [facility] Batista [facility] 04/28/2019 10:4 4:01 AM [facility] Outpatient Attender: KATRIN BLUM 04/21/2019 10:29:00 AM [facility] Outpatient Attender: JOHNATHON Batista FIRST RESPONDER 04/15/2019 12:44:01 P M [facility] Outpatient Attender: MAHESH RECINOS 02/24/2019 01:46:00 PM [facility] Outpatient Attender: JANE EDWARD 02/21/2019 10:00:00 AM [facility] Outpatient Attender: JOHNATHON Batista [facility] 02/18/2019 09:01:04 P M [facility] Outpatient Attender: MAHESH RECINOS 02/10/2019 02:18:00 PM [facility] Inpatient Attender: CHAO GUERRA MDAttdoug harjinder: PRERNA RIOS MDAdmitter: PRERNA RIOS MD ER-3RD 12/23/2018 04:01:00 PM EDT - 12/26/2018 01:22:00 PM T [facility] Patient discharged. Inpatient Attender: ONDINA RAMIREZ MDAdmitter: ONDINA RAMIREZ MD E R-ICU 12/19/2018 05:26:00 PM EDT - 12/23/2018 03:42:00 PM EDT [facility] Patient discharged. Emergency Attender: MATIAS MIKE EMERGENCY ROOM-ER 03:51:00 PM EDT - 12/19/2018 04:47:00 PM [facility] Patient discharged. Medications Medication Brand [...] {capsule_at_bedtime} active Doxepin HCl 25 MG eCW1 ([facility] jimena) Doxepin Hydrochloride 25 MG Oral Capsule Doxepin HCl 25 MG D oxepin HCl 25 MG 03/09/2020 12:00:00 AM EST 1.0 {capsule_at_bedtime} active Doxepin HCl 25 MG eCW1 ([facility] jimena) Doxepin Hydrochloride 25 MG Oral Capsule Doxepin HCl 25 MG D oxepin HCl 25 MG 03/09/2020 12:00:00 AM EST 1.0 {capsule_at_bedtime} active Doxepin HCl 25 MG eCW1 ([facility] jimena) Doxepin Hydrochloride 25 MG Oral Capsule Doxepin HCl 25 MG D oxepin HCl 25 MG 03/09/2020 12:00:00 AM EST 1.0 {capsule_at_bedtime} active Doxepin HCl 25 MG eCW1 ([facility] jimena) 8-2 mg 03/03/2020 12:00:00 AM [...] activ e Clonidine HCl 0.2 MG eCW1 ([facility] jimena) Clonidine Hydrochloride 0.2 MG Oral Tablet Clonidine H Cl 0.2 MG Clonidine HCl 0.2 MG 12/24/2019 12:00:00 AM EDT 1.0 {tablet} activ e Clonidine HCl 0.2 MG eCW1 ([facility]ena) Clonidine Hydrochloride 0.2 MG Oral Tablet Clonidine H Cl 0.2 MG Clonidine HCl 0.2 MG 12/24/2019 12:00:00 AM EDT 1.0 {tablet} activ e Clonidine HCl 0.2 MG eCW1 ([facility] j[facility]ena) Clonidine Hydrochloride 0.2 MG Oral Tablet Clonidine H Cl 0.2 MG Clonidine HCl 0.2 MG 12/24/2019 12:00:00 AM EDT 1.0 {tablet} activ e Clonidine HCl 0.2 MG eCW1 ([facility] jimena) Clonidine Hydrochloride 0.2 MG Oral Tablet Clonidine H Cl 0.2 MG Clonidine HCl 0.2 MG 12/24/2019 12:00:00 AM EDT 1.0 {tablet} suspe nded Clonidine HCl 0.2 MG eCW1 ([facility]ena) Clonidine Hydrochloride 0.2 MG Oral Tablet Clonidine H Cl 0.2 MG Clonidine HCl 0.2 MG 12/24/2019 12:00:00 AM EDT 1.0 {tablet} activ e Clonidine HCl 0.2 MG eCW1 ([facility]) Clonidine Hydrochloride 0.2 MG Oral Tablet Clonidine H Cl 0.2 MG Clonidine HCl 0.2 MG 12/24/2019 12:00:00 AM EDT 1.0 {tablet} activ e Clonidine HCl 0.2 MG eCW1 ([facility]) Clonidine Hydrochloride 0.2 MG Oral Tablet Clonidine H Cl 0.2 MG Clonidine HCl 0.2 MG 12/24/2019 12:00:00 AM EDT 1.0 {tablet} activ e Clonidine HCl 0.2 MG eCW1 ([facility]) Clonidine Hydrochloride 0.2 MG Oral Tablet Clonidine H Cl 0.2 MG Clonidine HCl 0.2 MG 12/24/2019 12:00:00 AM EDT 1.0 {tablet} activ e Clonidine HCl 0.2 MG eCW1 ([facility]) Clonidine Hydrochloride 0.2 MG Oral Tablet Clonidine H Cl 0.2 MG Clonidine HCl 0.2 MG 12/24/2019 12:00:00 AM EDT 1.0 {tablet} activ e Clonidine HCl 0.2 MG eCW1 ([facility]) Clonidine Hydrochloride 0.2 MG Oral Tablet Clonidine H Cl 0.2 MG Clonidine HCl 0.2 MG 12/24/2019 12:00:00 AM EDT 1.0 {tablet} suspe nded Clonidine HCl 0.2 MG eCW1 ([facility]) Clonidine Hydrochloride 0.2 MG Oral Tablet Clonidine H Cl 0.2 MG Clonidine HCl 0.2 MG 12/24/2019 12:00:00 AM EDT 1.0 {tablet} activ e Clonidine HCl 0.2 MG eCW1 ([facility]) Clonidine Hydrochloride 0.2 MG Oral Tablet Clonidine H Cl 0.2 MG Clonidine HCl 0.2 MG 12/24/2019 12:00:00 AM EDT 1.0 {tablet} suspe nded Clonidine HCl 0.2 MG eCW1 ([facility]) Clonidine Hydrochloride 0.2 MG Oral Tablet Clonidine H Cl 0.2 MG Clonidine HCl 0.2 MG 12/24/2019 12:00:00 AM EDT 1.0 {tablet} activ e Clonidine HCl 0.2 MG eCW1 ([facility]) Clonidine Hydrochloride 0.2 MG Oral Tablet Clonidine H Cl 0.2 MG Clonidine HCl 0.2 MG 12/24/2019 12:00:00 AM EDT 1.0 {tablet} activ e Clonidine HCl 0.2 MG [facility] 300 mg 12/13/2019 12:00:00 AM [...] {tablet_at_bedtime} active Clonazepam 0 .5 MG eCW1 ([facility]) Clonazepam 0.5 MG Oral Tablet Clonazepam 0.5 MG 11/04/2019 12:00:00 AM EDT 1.0 {tablet_at_bedtime} active Clonazepam 0 .5 MG eCW1 ([facility]) lisdexamfetamine dimesylate 50 MG Oral Capsule [Vyvans e] Vyvanse 50 MG Vyvanse 50 MG 11/04/2019 12:00:00 AM EDT 1.0 {capsule_in_the_morning} active Vyvanse 50 MG eCW1 ([facility]) Citalopram 20 MG Oral Tablet [Celexa] Celexa 20 MG Celexa 20 MG 11/04/2019 12:00:00 AM EDT 1.0 {tablet} active Ce elise 20 MG eCW1 ([facility]) Citalopram 20 MG Oral Tablet [Celexa] Celexa 20 MG Celexa 20 MG 11/04/2019 12:00:00 AM EDT 1.0 {tablet} active Ce elise 20 MG eCW1 ([facility]) lisdexamfetamine dimesylate 50 MG Oral Capsule [Vyvans e] Vyvanse 50 MG Vyvanse 50 MG 11/04/2019 12:00:00 AM EDT 1.0 {capsule_in_the_morning} active Vyvanse 50 MG eCW1 ([facility]) Citalopram 20 MG Oral Tablet [Celexa] Celexa 20 MG Celexa 20 MG 11/04/2019 12:00:00 AM EDT 1.0 {tablet} active Ce elise 20 MG eCW1 ([facility]) 75 mg 11/02/2019 12:00:00 AM [...] 1.0 {tablet} active Risperdal 3 MG eCW1 ([facility]) Risperidone 3 MG Oral Tablet [Risperdal] Risperdal 3 MG Risp erdal 3 MG 07/07/2019 12:00:00 AM EDT 1.0 {tablet} active Risperdal 3 MG eCW1 ([facility]) Risperidone 3 MG Oral Tablet [Risperdal] Risperdal 3 MG Risp erdal 3 MG 07/07/2019 12:00:00 AM EDT 1.0 {tablet} active Risperdal 3 MG eCW1 ([facility]) Risperidone 3 MG Oral Tablet [Risperdal] Risperdal 3 MG Risp erdal 3 MG 07/07/2019 12:00:00 AM EDT 1.0 {tablet} active Risperdal 3 MG eCW1 ([facility]) Risperidone 2 MG Oral Tablet [Risperdal] Risperdal 2 MG Risp erdal 2 MG 07/07/2019 12:00:00 AM EDT 1.0 {tablet} active Risperdal 2 MG eCW1 ([facility]) Risperidone 3 MG Oral Tablet [Risperdal] Risperdal 3 MG Risp erdal 3 MG 07/07/2019 12:00:00 AM EDT 1.0 {tablet} active Risperdal 3 MG eCW1 ([facility]) Risperidone 3 MG Oral Tablet [Risperdal] Risperdal 3 MG Risp erdal 3 MG 07/07/2019 12:00:00 AM EDT 1.0 {tablet} active Risperdal 3 MG eCW1 ([facility]) Risperidone 3 MG Oral Tablet [Risperdal] Risperdal 3 MG Risp erdal 3 MG 07/07/2019 12:00:00 AM EDT 1.0 {tablet} active Risperdal 3 MG eCW1 ([facility]) Risperidone 2 MG Oral Tablet [Risperdal] Risperdal 2 MG Risp erdal 2 MG 07/07/2019 12:00:00 AM EDT 1.0 {tablet} active Risperdal 2 MG eCW1 ([facility]) Risperidone 3 MG Oral Tablet [Risperdal] Risperdal 3 MG Risp erdal 3 MG 07/07/2019 12:00:00 AM EDT 1.0 {tablet} active Risperdal 3 MG eCW1 ([facility]) Risperidone 3 MG Oral Tablet [Risperdal] Risperdal 3 MG Risp erdal 3 MG 07/07/2019 12:00:00 AM EDT 1.0 {tablet} active Risperdal 3 MG eCW1 ([facility]) Risperidone 3 MG Oral Tablet [Risperdal] Risperdal 3 MG Risp erdal 3 MG 07/07/2019 12:00:00 AM EDT 1.0 {tablet} active Risperdal 3 MG eCW1 ([facility]) Risperidone 3 MG Oral Tablet [Risperdal] Risperdal 3 MG Risp erdal 3 MG 07/07/2019 12:00:00 AM EDT 1.0 {tablet} active Risperdal 3 MG eCW1 ([facility]) Risperidone 3 MG Oral Tablet [Risperdal] Risperdal 3 MG Risp erdal 3 MG 07/07/2019 12:00:00 AM EDT 1.0 {tablet} active Risperdal 3 MG eCW1 ([facility]) Risperidone 3 MG Oral Tablet [Risperdal] Risperdal 3 MG Risp erdal 3 MG 07/07/2019 12:00:00 AM EDT 1.0 {tablet} active Risperdal 3 MG eCW1 ([facility]) Risperidone 2 MG Oral Tablet [Risperdal] Risperdal 2 MG Risp erdal 2 MG 07/07/2019 12:00:00 AM EDT 1.0 {tablet} active Risperdal 2 MG eCW1 ([facility]) Risperidone 3 MG Oral Tablet [Risperdal] Risperdal 3 MG Risp erdal 3 MG 07/07/2019 12:00:00 AM EDT 1.0 {tablet} active Risperdal 3 MG eCW1 ([facility]) Risperidone 3 MG Oral Tablet [Risperdal] Risperdal 3 MG Risp erdal 3 MG 07/07/2019 12:00:00 AM EDT 1.0 {tablet} active Risperdal 3 MG eCW1 ([facility]) 8-2 mg 06/27/2019 12:00:00 AM [...] TABLETS BY MOUTH EVERY DAY SOLD: 06/18/2019 [facility] Famotidine 20 MG Oral Tablet FAMOTIDINE [...] dick Policy Dick Plan Information [facility] [id number] SP [id number] [facility] MEDICAID [id number] S [id number] [facility] [id number] S [id number] [facility] MEDICAID [id number] S [id number] [facility] MEDICAID [id number] S [id number] [facility](MCAID) O [id number] S [id number] Managed Care - [facility] Community Plan P [id number] S [id number] Medicaid S [id number] S [id number] [facility] [id number] SP [id number] [facility] OZZIE [id number] S [id number] [facility] COMM[facility] PLAN [facility] [id number] SP [id number] UN COMMUNITY PLAN XIX [id number] MEDICAID [id number] SP [id number] Managed Care - [facility] Community Plan P [id number] S [id number] MEDICAID [id number] S [id number] MEDICAID [id number] S [id number] MEDICAID PROF FEES [id number] MEDICAID [id number] S [id number] [facility] [id number] S [id number] Medicaid S [id number] S [id number] Managed Care - Community Plan [facility] P [id number] S [id number] [facility] ELEMENTARY MATH TUTOR DEPT [id number] SP [id number] Medicaid P [id number] S [id number] SELF PAY ONLY [id number] SP [id number] [facility] [id number] SP [id number] [facility] ELEMENTARY MATH TUTOR DEPT [id number] SP [id number] SELF PAY UNAVAILABLE SP UNAVAILA BLE Self Pay P UNAVAILABLE S UNAVAILA BLE Medicaid P [id number] S [id number] [facility] S UNAVAILA BLE [facility] Care - Community [facility] P [id number] S [id number] Medicaid S UNAVAILABLE S UNAVAILA BLE Problems, Conditions, and Diagnoses Code Display Name Description Problem Type Effective Dates Data Source(s) F19.10 Polysubstance abuse Polysubstance abuse Problem 0 03/11/2020 12:00:00 AM EST eCW1 ([facility] jimena) F19.11 [id number] History of drug abuse Problem 03/01/2020 12: 00:00 AM EST eCW1 ([facility]) K14.6 [id number] Tongue sore Problem 03/01/2020 12:00:[address] eCW1 ([facility]) F19.10 [id number] Substance abuse Problem 12/24/2019 12:00:00 AM EDT eCW1 ([facility]) F50.81 [id number] Binge eating disorder Problem 11/04/2019 12: 00:00 AM EDT eCW1 ([facility]) G56.03 [id number] Carpal tunnel syndrome, bilateral Pr oblem 10/31/2019 12:00:00 AM EDT eCW1 ([facility] jimena) R13.12 18283909 Oropharyngeal dysphagia Problem 10/31/2019 1 2:00:00 AM EDT eCW1 ([facility]) F17.200 95019483 Tobacco dependence Problem 10/31/2019 12:00: 00 AM EDT eCW1 ([facility]) E66.9 [id number] Obesity (BMI 30.0-34.9) Problem 0 10/31/2019 12:00:00 AM EDT eCW1 ([facility]) Z68.30 987044792 BMI 30.0-30.9,adult Problem 10/31/2019 12:00 :00 AM EDT eCW1 ([facility]) K21.9 [id number] Gastroesophageal ref lux disease, esophagitis presence not specified Problem 10/31/2019 12:00:00 AM EDT eCW1 ([facility]) K92.0 Hematemesis Hematemesis - cause unknown 020 05:42:44 PM EDT [facility] I80.9 Phlebitis and thrombophlebitis of unspec ified site Phlebitis and thrombophlebitis of unspecified site 05/20/2019 12:34:09 PM EDT [facility] right AC and right tibia F90.0 Attention-deficit hyperactivity disorder , predominantly inattentive type ATTN-DEFCT HYPERACTIVITY DISORDER, PREDOM INATTENT Diagnosis 02:00:00 PM [facility] F11.21 Opioid dependence, in remission OPIOID DEPENDENC E, IN REMISSION Diagnosis 03/23/2020 02:00:00 PM [facility] F50.81 BINGE EATING DISORDER BINGE EATING DISORDER Diagnosis 03/23/2020 02:00:00 PM [facility] F43.12 Post-traumatic stress disorder, chronic POST-TRAUMATIC STRESS DISORDER, CHRONIC Diagnosis 03/23/2020 02:00:00 PM [facility] F25.9 Schizoaffective disorder, unspecified SC HIZOAFFECTIVE DISORDER, UNSPECIFIED Diagnosis 03/23/2020 02:00:00 PM [facility] F19.10 Other psychoactive substance abuse, unco mplicated OTHER PSYCHOACTIVE SUBSTANCE ABUSE, UNCOMPLICATED Diagnosis 03/17/2020 10:30:00 AM [facility] Z13.29 Encounter for screening for other suspec keven endocrine disorder ENCOUNTER FOR SCREENING FOR OTH SUSPECTE Diagnosis 03/01/2020 04:49:00 PM [facility] Z82.61 Family history of arthritis FAMILY HISTORY OF ARTHRITI S Diagnosis 03/01/2020 03:45:00 PM [facility] Z13.220 Encounter for screening for lipoid disor ders ENCOUNTER FOR SCREENING FOR LIPOID DISORDERS Diagnosis 03/01/2020 03:45:00 PM [facility] Z82.69 Family history of other dise ases of the musculoskeletal system and connective tissue FAMILY HISTORY OF DISEASES OF THE MS SYS AND CONNE Diagnosis 03/01/2020 03:45:00 PM [facility] R50.9 Fever, unspecified FEVER, UNSPECIFIED Diagnosis 05/2020 03:45:00 PM [facility] 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, in r emission OTHER PSYCHOACTIVE SUBSTANCE ABUSE, IN REMISSION Diagnosis 03/01/2020 03:45:00 PM [facility] G56.03 CARPAL TUNNEL SYNDROME, BILATERAL UPPER LIMBS CARPAL TUNNEL SYNDROME, BILATERAL UPPER LIMBS Diagnosis 03/01/2020 03:45:00 PM [facility] james K21.9 Gastro-esophageal reflux disease without esophagitis GASTRO-ESOPHAGEAL REFLUX DISEASE WITHOUT ESOPHAGITIS Diagnosis 02/18/2020 10:00:00 AM [facility] F15.10 Other stimulant abuse, uncomplicated OTH ER STIMULANT ABUSE, UNCOMPLICATED Diagnosis 01/01/2020 02:30:00 PM [facility] F12.10 Cannabis abuse, uncomplicated CANNABIS ABUSE, UNCOMPLI CATED Diagnosis 12/24/2019 11:00:00 AM [facility] F11.10 Opioid abuse, uncomplicated OPIOID ABUSE, UNCOMPLICATE D Diagnosis 12/24/2019 11:00:00 AM [facility] R13.12 Dysphagia, oropharyngeal phase DYSPHAGIA, OROPHARYNGEA L PHASE Diagnosis 12/24/2019 08:24:00 AM [facility] M54.2 Cervicalgia CERVICALGIA Diagnosis 12/24/2019 08:24:00 AM [facility] T50.914D POISONING BY MULTIPLE UNSP DRUG/MEDS/BIO L SUBST, U POISONING BY MULTIPLE UNSP DRUG/MEDS/BIOL SUBST, U Diagnosis 12/24/2019 08:24:00 AM [facility] F19.20 Other psychoactive substance dependence, [...] DISORDER, DEPRESSIVE TYPE Diagnosis 12/05/2019 10:08:00 AM [facility] Y92.[address] or not applicable [...] SED-HYPNTC DRUGS, SLF- Diagnosis 12/04/2019 11:06:00 PM [facility] T40.902A Poisoning by unspecified psy chodysleptics [...] STRESS DISORDER, UNSPECIFIED Diagnosis 12/04/2019 11:06:00 PM [facility] F43.23 Adjustment disorder with mixed anxiety a nd depressed mood ADJUSTMENT DISORDER WITH MIXED ANXIETY AND DEPRESS Diagnosis 12/04/2019 11:06:00 PM [facility] T42.4X2A Poisoning by benzodiazepines, intentiona l self-harm, initial encounter POISONING BY BENZODIAZEPINES, INTENTIONAL SELF-HARM, INIT Diagnosis 12/04/2019 11:06:00 PM [facility] Y93.89 Activity, other specified ACTIVITY, OTHER SPECIFIED Di agnosis 12/04/2019 04:21:00 PM [facility] Y92.[address] the place of o ccurrence of the external cause OT PLACES THE PLACE OF OCCURRENCE OF THE EXTER Diagnosis 09/2019 04:21:00 PM [facility] Z79.899 Other charcoal burner beehive kiln (current) drug therapy O THER [facility] (CURRENT) DRUG THERAPY Diagnosis 12/04/2019 [facility]828 Contact with and (suspected) exposure to other viral communicable diseases CONTACT W AND EXPOSURE TO OTH VIRAL COMMUNICABLE D Diagnosis 12/04/2019 04:21:00 PM [facility] F17.210 Nicotine dependence, cigarettes, uncompl icated NICOTINE DEPENDENCE, CIGARETTES, UNCOMPLICATED Diagnosis 12/04/2019 04:21:00 PM [facility] T50.992A Poisoning by other drugs, me dicaments and biological substances, intentional self-harm, initial encounter POISONING BY OTH DRUG/MEDS/BIOL SUBST, SELF-HARM, Diagnosis 12/04/2019 04:21:00 [facility] R45.851 Suicidal ideations SUICIDAL IDEATIONS Diagnosis 09/2019 04:21:00 PM [facility] B48678 Nicotine dependence, cigarettes, uncompl icated Nicotine dependence, cigarettes, uncomplicated Diagnosis 11/07/2019 12:19:00 AM [facility] F1510 Other stimulant abuse, uncomplicated Other stimu lant abuse, uncomplicated Diagnosis 11/07/2019 12:19:00 AM [facility] T14128 Other psychoactive substance abuse with psychoactive substance-induced anxiety disorder Other psychoactive substance abuse with psychoactive substance- induced anxiety disorder Diagnosis 11/07/2019 12:19:00 AM [facility] R110 Nausea Nausea Diagnosis 11/07/2019 12:19:00 AM ED [facility] Z76.89 Persons encountering health services in other specified circumstances PERSONS ENCOUNTERING HEALTH SERVICES IN OTH CIRCUM Diagnosis 05/2019 09:06:00 AM [facility] Z71.9 Counseling, unspecified COUNSELING, UNSPECIFIED Diagno sis 10/31/2019 09:06:00 AM [facility] Z68.30 Body mass index (BMI) 30.0-30.9, adult B BOB MASS INDEX (BMI) 30.0-30.9, ADULT Diagnosis 10/31/2019 09:06:00 [facility] E66.9 Obesity, unspecified OBESITY, UNSPECIFIED Diagnosis 10/31/2019 09:06:00 AM [facility] R56.9 Unspecified convulsions UNSPECIFIED CONVULSIONS Diagno sis 10/31/2019 09:06:00 AM [facility] F909 Attention-deficit hyperactivity disorder , unspecified type Attention- deficit hyperactivity disorder, unspecified type Diagnosis 10/08 02:09:00 AM [facility] J029 Acute pharyngitis, unspecified Acute pharyngitis, unsp ecified Diagnosis 10/09/2019 02:09:00 AM [facility] F15.11 OTHER STIMULANT ABUSE, IN REMISSION OTHER STIMUL ANT ABUSE, IN REMISSION Diagnosis 02/24/2019 01:46:00 PM [facility] Z72.0 Tobacco use TOBACCO USE Diagnosis 02/21/2019 10:00:00 AM [facility] Surgeries/Procedures Procedure Description Date Indications Data Source(s) Psychological Tests, Neurobehavioral and Cognitive Status 12/06/2019 12:00:00 AM [facility] Introduction of Electrolytic and Water B alance Substance into Peripheral Vein, Percutaneous Approach 12/04/2019 12:00:00 AM [facility] Results ID Date Data Source [id number] 04/09/2020 02:48:00 AM [facility] Name Value Range Interpretation Code Description Data [place] rce(s) Supporting Document(s) SARS COVID ANTIGEN POSITIVE [facility] This lab was ordered by AMANUEL JACKMAN a nd reported by [facility]. ID Date Data Source [id number] 04/09/2020 02:46:00 AM EST [facility] Name Value Range Interpretation Code Description Data [place] rce(s) Supporting Document(s) SARS COVID ANTIGEN POSITIVE [facility] This lab was ordered by AMANUEL JACKMAN a nd reported by [facility]. ID Date Data Source [id number] 03/04/2020 12:09:00 PM EST [facility] Name Value Range Interpretation Code Description Data [place] rce(s) Supporting Document(s) FAZAL DIRECT Negative Negative [facility] Performed at: RN - [facility] [place] [id number] Director: Elsa Garcia MD, Phone: [phone] ID Date Data Source [id number] 03/04/2020 12:05:00 PM EST [facility] Name Value Range Interpretation Code Description Data [place] rce(s) Supporting Document(s) FAZAL Direct Negative Negative [facility] ID Date Data Source [id number] 03/03/2020 08:50:00 AM EST [facility] ADD ON TEST Name Value Range Interpretation Code Description Data [place] rce(s) Supporting Document(s) RHEUMATOID FACTOR SCREEN NEGATIVE NEGATIVE [facility] ID Date Data Source [id number] 03/03/2020 08:37:00 AM EST [facility] ADD ON TEST Name Value Range Interpretation Code Description Data [place] rce(s) Supporting Document(s) FREE T4 1.0 ng/dL 0.76-1.46 [facility] ID Date Data Source [id number] 03/03/2020 08:37:00 AM EST [facility] ADD ON TEST Name Value Range Interpretation Code Description Data [place] rce(s) Supporting Document(s) TSH 0.422 uIU/mL 0.36-3.74 [facility] ID Date Data Source [id number] 03/03/2020 08:11:00 AM EST [facility] ADD ON TEST Name Value Range Interpretation Code Description Data [place] rce(s) Supporting Document(s) C REACTIVE PROTEIN 15.6 mg/L 0.0-3.0 H [facility] ID Date Data Source [id number] 03/03/2020 08:11:00 AM [facility] ADD ON TEST Name Value Range Interpretation Code Description Data [place] rce(s) Supporting Document(s) GLUCOSE 85 mg/dL 74-106 [facility] BLOOD UREA NITROGEN 11 mg/dL 7-18 [facility] ital CREATININE 0.88 mg/dL 0.6-1.0 [facility] SODIUM 135 mmol/L 136-145 L [facility] POTASSIUM 4.1 mmol/L 3.5-5.1 [facility] CHLORIDE 99 mmol/L 98-107 [facility] CO2 26 mmol/L 21-32 [facility] CALCIUM 8.8 mg/dL 8.5-10.1 [facility] ANION GAP 10.0 mmol/L 5-12 [facility] GLOMERULAR FILTRATION RATE 74 mL/min [facility] GFR IS CALCULATED IN mL/min/1.73m2 LISANDRA L FUNCTION: >90MILDLY DECREASED: 60-89MILDY TO MODERATELY DECREASED: 45-59 MODERATELY TO SEVERELY DECREASED: 30-44SEVERELY DECREASED: 15-29RENAL FAILURE: <15 AST 32 U/L 15-37 [facility] ALT 32 U/L 12-78 [facility] ALKALINE PHOSPHATASE 65 U/L 46-116 [facility] pital TOTAL BILIRUBIN 0.2 mg/dL 0.2-1.0 [facility] TOTAL PROTEIN 6.9 g/dl 6.4-8.2 [facility] ALBUMIN 3.9 gm/dL 3.4-5.0 [facility] ID Date Data Source [id number] 03/01/2020 05:46:00 PM [facility] Name Value Range Interpretation Code Description Data [place] rce(s) Supporting Document(s) CHOLESTEROL 193 mg/dL 0-200 [facility] TRIGLYCERIDES 86 mg/dL 0-150 [facility] LDL CHOLESTEROL 111 mg/dL 0-100 H [facility] HDL CHOLESTEROL 65 mg/dL 40-60 H [facility] CHOL/HDL RATIO 3.0 0.0-5.0 [facility] ID Date Data Source [id number] 02/29/2020 10:40:00 AM EST [facility] Name Value Range Interpretation Code Description Data [place] rce(s) Supporting Document(s) SARS coronavirus 2 RNA [facility] This lab was ordered by [facility] and reported by [facility]. ID Date Data Source [id number] 12/10/2019 11:15:00 AM EDT [address] [id number] NAME: BRUNA LEE Joe Orellana#: [id number] PHYSICIAN: PRERAN RIOS MD ADM. DATE: 12/05/19ACCOUNT #: [id number] DISCH. DATE:DISCHARGE SUMMARYIDENTIFICATION: A 34-year-old female with schizoaffective disorder,polysubstance dependence.CHIEF COMPLAINT: "I don't know why I am here."REASON FOR ADMISSION: Post- overdose.HISTORY OF PRESENT ILLNESS: The patient was interviewed in ICU after sheoverdosed. The patient was seen in [facility] for a regularconsultation, she could [...] [place] last time in our service with [...] ABUSE: None.SOCIAL HISTORY: The patient is from [place], did not finish high school.She was in [...] The patient was discharged with the medications Kxfpmg16 mg p.o. daily, Neurontin 600 mg p.o. [...] on that direction too. At this point, shewill be enrolled in outpatient chemical dependence in [place].MENTAL STATUS EXAMINATION: The patient is pleasant, cooperative. [...] Dictated: 12/10/2019 09:34:34Date Transcribed: 12/10/2019 10:15:05JV/PUSJob #: [id number]: 12/10/19 0934 Electronically SignedTRANS:12/10/19 1115 PRERNA RIOS MDTRANS BY:ADE SIGNED:12/10/19REPORT COPY TO: Name Value Range Interpretation Code Description Data [place] rce(s) Supporting Document(s) ID Date Data Source [id number] 12/10/2019 06:43:00 AM EDT [facility] [address] [id number] NAME: BRUNA LEE#: [id number] PHYSICIAN: PRERNA RIOS, [facility] #: [id number] ADM. DATE: 12/05/19PATIENT : 89 DISCH. DATE: [50}DISCHARGE SUMMARYMHU discharge planNicotine Replacement TherapySmoking Status Current every day smokerPrescribed at discharge [facility]/Drug DisorderAlcohol or Drug Disorder medication prescribed, counseling prescribedPersonal Care InstructionsDischarge Activity: As tolerated Discharge diet: RegularFollow Up CareFollow Up:Follow up with your Primary care physicianPriority ItemsUrgent/Important items that need to be addressed at primary care follow-upappointmentDischarge InformationDISCHARGE INFORMATION* Thank you [facility] and allowing us toserve you* Our Goal is to provide the highest quality of care.* This discharge information is to help you better understand your diagnosisand medication* Avoid taking zcul-shq-mbqqbus medicines unless approved by your physician.* Take your medications as prescribed. DO NOT stop any medications unlessapproved first* Weigh yourself daily. Report any gain of 5 lbs in a week* 24 Hour Crisis HOTLINE available: Call Reachout at [phone]* Chem. Dependency: Walk in Clinics [place] ([phone]) and [place] ([phone]) anytime Félix thru Sunday 8 to 10am. [place] ([phone]) anytimeMond thru Sunday 8 to 10am. [place] ([phone]) Sunday or Sunday from 8to 10am (Bring $30 to [facility]) SMOKIN G CESSATION* Smoking is dangerous to your health. It delays the healing process, andworks against your medications. Not smoking will improve your health* Our hospital participates with the Opt-to-Quit program. You will be contactedafter discharge by the [facility] Smoker's Quitline for support with tobaccocessation. You have the option once contacted to refuse this service.* You can also go online to www.Kicknote.com. Free nicotine replacementsare available Attention* You should [...] rce(s) Supporting Document(s) ID Date Data Source [id number] 12/10/2019 02:15:00 AM EDT [facility] [address] [id number] NAME: BRUNA LEE#: [id number] PHYSICIAN: PRERNA RIOS MD ADM. DATE: 12/05/19PROGRESS NOTE DATE: 12/09/19 .#: [id number] #: [id number] NOTEIDENTIFICATION: A 34-year-old female with mood disorder [...] Discharge tomorrow.Date Dictated: 12/09/2019 10:52:52Date Transcribed: 12/10/2019 01:15:28JV/Basia #: [id number]: 12/09/19 1052 Electronically SignedTRANS:12/10/19 0215 PRERNA RIOS MDTRANS BY:IATDATE SIGNED:12/10/19REPORT COPY TO: Name Value Range Interpretation Code Description Data [place] rce(s) Supporting Document(s) ID Date Data Source [id number] 12/08/2019 11:58:00 AM EDT [facility] Name Value Range Interpretation Code Description Data [place] rce(s) Supporting Document(s) URINE COLOR Yellow N [facility] UAPR Clear N [facility] UGLU Negative NEGATIVE N [facility] URINE BILIRUBIN Negative NEGATIVE [facility] UKET Negative NEGATIVE [facility] USG 1.015 1.010-1.025 [facility] UBLO Negative NEGATIVE [facility] UpH 8.0 5.0-8.0 [facility] UPRO Negative Negative [facility] UUB 0.2 mg/dL 0.2-1.0 [facility] UNIT Negative Negative N [facility] ULEU Negative Negative [facility] ID Date Data Source [id number] 12/09/2019 04:57:00 AM EDT [facility] [place] [id number] NAME: BRUNA LEE#: [id number] PHYSICIAN: PRERNA RIOS MD ADM. DATE: 12/05/19PROGRESS NOTE DATE: 12/08/19 RM.#: [id number] #: [id number] NOTEIDENTIFICATION: A 34-year-old female with mood disorder, [...] for discharge.Date Dictated: 12/08/2019 10:30:51Date Transcribed: 12/09/2019 03:57:49JOSESITO/Basia #: [id number]: 12/08/19 1030 Electronically SignedTRANS:12/09/19 0457 PRERNA RIOS MDTRANS BY:ADE SIGNED:12/09/19REPORT COPY TO: Name Value Range Interpretation Code Description Data [place] rce(s) Supporting Document(s) ID Date Data Source [id number] 12/06/2019 11:02:00 PM EDT [place], [place] [address]PATIENT NAME: BRUNA LEE Joe Muniz.#: [id number] PHYSICIAN: PRERNA RIOS MD ADM. DATE: 12/05/19ACCOUNT #: [id number] .#: [id number] ASSESSMENTIDENTIFICATION: A 34-year-old female with schizoaffective disorder andpolysubstance dependence.CHIEF COMPLAINT: "I don't know why I am here."REASON FOR ADMISSION: Post-overdose.HISTORY OF PRESENT ILLNESS: According to the records and our interview, thepatient was brought to our service after being in ICU and the medical floorfor an overdose. The patient went to the outpatient clinic in [facility] and she passed out in consultation. She [...] 2 weeks ago, that she was in [place] inpatient service for 5 days forthat.The patient [...] into detail.SOCIAL HISTORY: The patient is from [place]. Did not finish high school.She is in [...] Dictated: 12/06/2019 12:22:47Date Transcribed: 12/06/2019 22:02:14JV/GBJob #: [id number]: 12/06/19 1222 Electronically Signed TRANS:12/06/19 2302 PRERNA RIOS MDTRANS BY:IATDATE SIGNED:12/07/19REPORT COPY TO: Name Value Range Interpretation Code Description Data [place] rce(s) Supporting Document(s) ID Date Data Source [id number] 12/05/2019 02:12:00 AM EDT [facility] Name Value Range Interpretation Code Description Data [place] rce(s) Supporting Document(s) CKI 109 U/L 17-150 [facility] ID Date Data Source [id number] 12/05/2019 04:49:00 PM EDT [facility] [address] HEALTH HISTORY AND PHYSICALPATIENT NAME: BRUNA LEE MR#: [id number] PHYSICIAN: PRERNA RIOS MDAUTHOR: Diogenes Bueno MD [...] and [facility]Past Medical/Surgical HistoryPast Medical/Surgical HistoryMedical ProblemsAcute [...] psych serviceDATE SIGNED: 12/05/19 Electronically SignedTIME SIGNED: 554 DIOGENES BUENO MD Name Value Range Interpretation Code Description Data [place] rce(s) Supporting Document(s) ID Date Data Source [id number] 12/05/2019 09:48:00 AM EDT [facility] [address] [address]VRILGRHJV SUMMARYPATIENT NAME: BRUNA LEE MR#: [id number] PHYSICIAN: BEHZAD HOGAN, MDAUTHOR: Diogenes Bueno MD DATE: 12/04/19 #: ICUDISCHARGE DATE: 12/05/19 : 89Summary of HospitalizationReason for AdmissionOverdose on xanax, gabapentin, bath saltsHospital Yjmjhl6 yo F who was admitted for an [...] and the [facility]Diagnoses (Current Visit)Problem List1. Drug overdose2. [...] taking the following medications:Gabapentin* (Neurontin*) 400 MG [id number] MILLIGRAM Orally DAILYContinue taking these medications:LEVETIRACETAM (LEVETIRACETA) 1,000 MG TABLET1,000 MILLIGRAM Orally TWICE DAILYQty = 60Amitriptyline HCl (Amitriptyline HCl) 100 MG [id number] MILLIGRAM Orally DAILYSUCRALFATE (Carafate*) 1 GM TABLET1 GM Orally TWICE DAILYcloniDINE* (CLONIDINE*) 0.1 MG TABLET0.1 MILLIGRAM Orally TWICE DAILYOmeprazole Magnesium (Prilosec Otc) 20 MG TABLET.DR20 MILLIGRAM Orally DAILYrispERIdone (RISPERDAL*) 0.5 MG TABLET2 MILLIGRAM Orally TWICE DAILYATOMOXETINE HCL (Strattera) 18 MG [id number] MILLIGRAM Orally DAILYBUPRENORPHINE HCL/NALOXONE HCL (Suboxone 8 MG-2 MG Sl Film) 1 EACH FILM1 MILLIGRAM SublinguallySUMATRIPTAN SUCCINATE (Imitrex*) 50 MG [id number] MILLIGRAM Orally DAILY NEEDED as needed for HeadacheOxcarbazepine (Trileptal) 150 MG [id number] MILLIGRAM Orally TWICE DAILYDischarge Activity: As tolerated, No liftingDischarge diet: RegularFollow-upFollow up with the mental health doctor [facility]Time spent by provider to complete discharge > 30 minutesDATE SIGNED: 12/05/19 Electronically SignedTIME SIGNED: 1912 DIOGENES BUENO MD Name Value Range Interpretation Code Description Data [place] rce(s) Supporting Document(s) ID Date Data Source [id number] 12/05/2019 09:46:00 AM EDT [facility] [address] [address]DNWCANT NAME: BRUNA LEE#: [id number] PHYSICIAN: YI KLEIN #: [id number] ADM. DATE: 12/04/19PATIENT : 89 DISCH. DATE: [50}DISCHARGE SUMMARYMedical Discharge PlanNicotine Replacement TherapyPrescribed at discharge Rx not offered at DCReason not offered [facility] Care InstructionsDischarge Activity: As tolerated, No liftingDischarge diet: RegularProblem ListMedical ProblemsAcute respiratory failure (Acute)Drug abuse (Chronic)Drug overdose (Acute)SchizophreniaSeizure disorder (Chronic, 12/20/18)Follow Up CareFollow Up:Follow up with the mental health doctor [facility]Priority ItemsUrgent/Important items that need to be addressed at primary care follow-upappointmentPLEASE AVOID GABAPENTIN/XANAX/BATH SALTS IN THE FUTUREDischarge InformationDISCHARGE INFORMATION* Thank you for [facility] and allowing us toserve you* Our [...] Hour Crisis HOTLINE available: Call [employer] at [phone] SMOKING CESSATION* Smoking is dangerous to your health. It delays the healing process, andworks against your medications. Not smoking will improve your health* Our hospital participates with the Opt-to-Quit program. You will be contactedafter discharge by the [facility] Smoker's Quitline for support with tobaccocessation. You have the option once contacted to refuse this service.* You can also go online to www.tabulate.thesweetlink. Free nicotine replacementsare available Attent ion* You [...] rce(s) Supporting Document(s) ID Date Data Source [id number] 12/06/2019 02:37:00 AM EDT [place], [place] [address]PATIENT NAME: BRUNA LEE#: [id number] PHYSICIAN: BEHZAD HOGAN MD ADM. DATE: 12/04/19CONSULTING PHYSICIAN: PRERNA RIOS MD .#: ICUACCOUNT #: [id number] REPORTIDENTIFICATION: A 34-year-old female with mood disorder. This is a shortconsultation for a 34-year-old female who was unresponsive. The patient is inICU and at this point it is not clear the reason for an overdose.According to the records, the patient has a history of seizures, GERD, carpaltunnel, adjustment disorder, anxiety, depression, PTSD, and ADHD. Accordingto the records, the patient went to [facility] for an evaluation. Shehad an overdose. Was unconscious and at that point, according to the records,she stated that she injected bath salts in the morning, that is when shebecame unconscious and it is not clear who called the EMS that brought her [facility]. The patient has poor response to [...] the lastthing she remembers is being at [place] so she is oriented to person, not [...] Dictated: 12/05/2019 09:24:19Date Transcribed: 12/06/2019 01:37:33JV/GBJob #: [id number]: 12/05/19 0924 Electronically SignedTRANS:12/06/19 0237 PRERNA RIOS MDTRANS BY:ADE SIGNED:12/09/19REPORT COPY TO: Name Value Range Interpretation Code Description Data [place] rce(s) Supporting Document(s) ID Date Data Source [id number] 12/05/2019 08:01:00 AM EDT [facility] Patient: BRUNA LEE Observation Repor t - [facility] InstituteVisitID: [id number] [place] [address] [phone], FRegistration Date/Time: 12/04/2019 15:46 Weight:68.4 kg (E). [...] 12/04/2019 20:43) Addenda for BRUNA LEE VisitID: [id number] Date: 12/04/2019 12/05/2019 7:59Spoke to [facility] nurse Deboarh who wanted to come to [place] to see patient. Advised Deborah that the [facility] was [facility]. (Electronically signed by Allyssa Paredes R.N. - 12/05/2019 7:59) Name Value Range Interpretation Code Description Data [facility](s) Supporting Document(s) ID Date Data Source [id number] 12/05/2019 07:34:00 AM EDT [facility] Name Value Range Interpretation Code Description Data [facility](s) Supporting Document(s) GLU 76 mg/dL 70-110 [facility] Patients taking Sulfasalazine may have f alsely depressedGlucose levels. Patients taking Sulfapyridine may havefalsely elevated Glucose levels. Patients should be drawnfor Glucose before the initial administration of eitherdrug. BUN 7 mg/dL 7-23 [facility] CRE 0.500 mg/dL 0.500-1.300 [facility] GFR > 60 mL/min [facility] CHLORIDE 117 mmol/L 99-110 [facility] NA 146 mmol/L 136-147 [facility] POTASSIUM 3.5 mmol/L 3.5-5.1 [facility] TCO2 22 mmol/L 20-33 [facility] ANION GAP 10.5 10.0-20.0 [facility] CA 7.8 mg/dL 8.3-10.7 [facility] ALKALINE PHOS 59 U/L 45-117 [facility] TP 5.7 g/dL 6.0-7.8 [facility] ALB 2.6 g/dL 3.5-5.0 [facility] ESRD Dialysis patient Albumin reference range: 2.9-4.4 g/dL GL 3.1 g/dL 2.3-3.5 [facility] A/G 0.8 1.0-2.5 [facility] T. BILIRUBIN 0.3 mg/dL 0.1-1.1 [facility] The [employer] [place] Total Bilirubin is n ot recommended forpatients undergoing treatment with eltrombopag (Promacta)due to the potential for falsely elevated results. ALTI 15 U/L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 Department [address] [place] [address] Phone #: ext- [phone] 11/07/2019 00:19 Patient: [...] Male GFR Interprentation 20-49 yrs >60 mL/min Ylpnjw98-15 yrs >56 mL/min Normal 60- 69 yrs >49 mL/min Normal 70-79yrs>42 mL/min Normal 80 and above >35 mL/min Normal Female GFRInterpretation 20-39 yrs >60 mL/min Normal 40-49 yrs >58 mL/minNormal 50-59 yrs >51 mL/min Normal 60-69 yrs >45 mL/min Normal 4 Clinical Report - Physicians/Mid Levels [facility] Emergency Department [address] [place] [address] Phone #: ext- [phone] 11/07/2019 00:19 Patient: BRUNA LEE Sex: F : 1985 Age: 79u62-45 yrs >39 mL/min Normal 80 and above >32 mL/min NormalBeta-HCG, Qual Serum: (JENN: 11/07/2019 02:15) ( [facility] 11/07/[facility] 03:20) Final results Test Result Flag Units (Reference) HCG SERUM QUAL NEGATIVE (NORMAL: NEGAT HCG SERUM QL REENTER NEGATIVE (NORMAL: NEGAT { KIT LOT # [id number] ){ KIT EXP [id number] ){ PROCEDURAL CONTROL VALID)CPK: (JENN: 11/07/2019 02:15) ( [facility] 11/07/2019 03:15) Final results Test Result Flag Units (Reference) CPK 313 H U/L (30 - 170)Drug Screen-Urine: (JENN: 11/07/2019 02:00) ( [facility] 11/07/2019 03:15) Final results Test [...] PRESUMPTIVE POSITIVE CONFIRMATION WILL BE PERFORMED AT [facility].Urinalysis: (JENN: 11/07/2019 02:00) ( [facility] 11/07/2019 [...] Indicate 5 Clinical Report - Physicians/Mid Levels [facility] Emergency Department [address] [place] [address] Phone #: ext- [phone] 11/07/2019 00:19 Patient: [...] was requested by: Evonne Hagen Reference #: [id number] Others' Prescriptions Patient Name: Bruna Pond Date: 1985 Address: [address] [place] [id number]: Female Rx Written Rx Dispensed Drug Quantity [...] J hopson MD Medicaid [facility] #15 11/12/2018 11/12/2018 suboxone 8 mg-2 mg sl film 56 63 Jose J Mao MD Medicaid [facility] #15 * - Drugs marked with an asterisk are compound drugs. If the compound drug is made up of more than one controlled substance, then each controlled substance will be a separate row in the table. 6 Clinical Report - Physicians/Mid Levels [facility] Emergency Department [address] [place] [address] Phone #: ext- [phone] 11/07/2019 00:19 Patient: [...] Oral. 7 Clinical Report - Physicians/Mid Levels [facility] Emergency Department [address] [place] [address] Phone #: ext- [phone] 11/07/2019 00:19 Patient: [...] rce(s) Supporting Document(s) ID Date Data Source [id number] 11/07/2019 03:20:00 AM EDT [facility] Name Value Range Interpretation Code Description Data [place] rce(s) Supporting Document(s) HCG SERUM QUAL NEGATIVE NORMAL: NEGATIVE [facility] HCG SERUM QL REENTER NEGATIVE NORMAL: NEGATIVE [facility] { KIT LOT # [id number] ){ KIT EXP DATE 12-08-20 ){ PROCEDURAL CONTROL VALID ) ID Date Data Source [id number] 11/07/2019 03:15:00 AM EDT [facility] Name Value Range Interpretation Code Description Data [place] rce(s) Supporting Document(s) Creatine kinase [Enzymatic activity/volume] in Serum or Plasma 3 13 U/L 30 - 170 H [facility] ID Date Data Source [id number] 11/07/2019 03:14:00 AM EDT [facility] Name Value Range Interpretation Code Description Data [place] rce(s) Supporting Document(s) COMPREHENSIVE METABOLIC PANEL [facility] COMPREHENSIVE METABOLIC PANEL Sodium [Moles/volume] in Serum or Plasma 140 mEq/L 134 - 153 [facility] Potassium [Moles/volume] in Serum or Plasma 3.8 mEq/L 3.6 - 5.0 [facility] Chloride [Moles/volume] in Serum or Plasma 100 mEq/L 98 - 107 [facility] Carbon dioxide, total [Moles/volume] in Serum or Plasma 30 MEQ/L 22 - 30 [facility] Glucose [Mass/volume] in Serum or Plasma 98 MG/DL 65 - 110 [facility] BUN 14 MG/DL 7 - 21 [facility] Creatinine [Mass/volume] in Serum or Plasma 0.7 MG/DL 0.7 - 1.5 [facility] BUN/CREAT 20 8 - 27 [facility] Protein [Mass/volume] in Serum or Plasma 5.9 G/DL 6.3 - 8.2 L [facility] Albumin [Mass/volume] in Serum or Plasma 3.6 G/DL 3.9 - 5.0 L [facility] Globulin [Mass/volume] in Serum by calculation 2.3 GM/DL 2.4 - 3.2 L [facility] A/G RATIO 1.6 0.8 - 2.0 [facility] Calcium [Mass/volume] in Serum or Plasma 9.2 MG/DL 8.4 - 10.2 [facility] Bilirubin.total [Mass/volume] in Serum or Plasma <0.7 MG/DL 0.2 - 1.3 [facility] Alkaline phosphatase [Enzymatic activity/volume] in Serum or Plasma 62 U/L 38 - 126 [facility] Aspartate aminotransferase [Enzymatic activity/volume] in Serum or Plasma 302 U/L 5 - 40 H [facility] Alanine aminotransferase [Enzymatic activity/volume] in Seru m or Plasma 125 U/L 7 - 56 H [facility] Anion gap 3 in Serum or Plasma 10.0 mmol/L 8.0 - 16.0 [facility] AGE 34 yrs [facility] NON-AA GFR >60 mL/min [facility] AFR AMER GFR >60 mL/min [facility] Male GFR In [...] >32 mL/min Normal ID Date Data Source [id number] 11/07/2019 02:27:00 AM EDT [facility] Name Value Range Interpretation Code Description Data [place] rce(s) Supporting Document(s) CBC W/AUTOMATED DIFF [facility] COMPLETE BLOOD COUNT Leukocytes [#/volume] in Blood by Automated count 8.3 10^3/uL 4.2 - 1 1.0 [facility] Erythrocytes [#/volume] in Blood by Automated count 3.87 10^6/uL 4. 20 - 5.40 L [facility] Hemoglobin [Mass/volume] in Blood 11.6 g/dL 12.0 - 16.0 L [facility] Hematocrit [Volume Fraction] of Blood by Automated count 36.0 % 3 7.0 - 47.0 L [facility] Erythrocyte mean corpuscular volume [Entitic volume] by Auto mated count 93.0 fL 81.0 - 101 [facility] Erythrocyte mean corpuscular hemoglobin [Entitic mass] by Automated count 30.0 pg 27.0 - 34.0 [facility] Erythrocyte mean corpuscular hemoglobin concentration [Mass/volume] by Automated count 32.2 g/dL 31.0 - 36.0 [facility] Erythrocyte distribution width [Ratio] by Automated count 13.3 % 11.5 - 14.5 [facility] Platelets [#/volume] in Blood by Automated count 271 10^3/uL 150 - 45 0 [facility] Platelet mean volume [Entitic volume] in Blood by Automated count 9.5 fL 7.4 - 10.4 [facility] Neutrophils/100 leukocytes in Blood by Automated count 82.6 % 37. 0 - 80.0 H [facility] Lymphocytes/100 leukocytes in Blood by Manual count 14.3 % 25.0 - 40.0 L [facility] Monocytes/100 leukocytes in Blood by Automated count 1.6 % 3.0 - 8.0 L [facility] Eosinophils/100 leukocytes in Blood by Automated count 0.8 % 0.0 - 7.0 [facility] Basophils/100 leukocytes in Blood by Automated count 0.2 % 0.0 - 2.5 [facility] %IG 0.5 % 0.0 - 0.0 H [facility] %NRBC 0.0 % 0.0 - 0.0 [facility] Neutrophils [#/volume] in Blood by Automated count 6.85 10^3/uL 2.00 - 6.90 [facility] Lymphocytes [#/volume] in Blood by Automated count 1.19 10^3/uL 0.60 - 3.40 [facility] Monocytes [#/volume] in Blood by Automated count 0.13 10^3/uL 0.00 - 0.90 [facility] Eosinophils [#/volume] in Blood by Automated count 0.07 10^3/uL 0.00 - 0.70 [facility] Basophils [#/volume] in Blood by Automated count 0.02 10^3/uL 0.00 - 0.20 [facility] #IG 0.04 10^3/uL 0.00 - 0.10 [facility] #NRBC 0.00 10^3/uL 0.00 - 0.00 [facility] MANUAL DIFF NOT INDICATED [facility] RBC MORPH NOT INDICATED [facility] ID Date Data Source [id number] 11/07/2019 03:14:00 AM EDT [facility] Name Value Range Interpretation Code Description Data [place] rce(s) Supporting Document(s) DRUG SCREEN URINE [facility] URINE DRUG SCREEN Amphetamine [Presence] in Urine by Screen method PRESUMP POS LISANDRA L: NEGATIVE A [facility] BARBITURATES NEGATIVE NORMAL: NEGATIVE [facility] BENZO NEGATIVE NORMAL: NEGATIVE [facility] COCAINE NEGATIVE NORMAL: NEGATIVE [facility] Tetrahydrocannabinol [Presence] in Urine NEGATIVE NORMAL: NEGATIVE [facility] OPIATES NEGATIVE NORMAL: NEGATIVE [facility] Phencyclidine [Presence] in Urine by Screen method NEGATIVE NOR MAL: NEGATIVE [facility] \\BLDo\\URINE DRUG SCR EEN INTERPRETATION\\BLDx\\ THE CUTOFFF LEVELS FOR DETECTION ARE FOLLOWS: AMPHETAMINES 1000 ng/ml BARBITUARATES 200 ng/ml BENZODIAZEPINES 100 ng/ml THC 50 ng/ml PHENCYCLIDINE 25 ng/ml OPIATES 300 ng/ml COCAINE 300 ng/ml ALL POSITIVES ARE CONSIDERED PRESUMPTIVE POSITIVE CONFIRMATION WILL BE PERFORMED AT PHYSICIAN REQUEST. ID Date Data Source [id number] 11/07/2019 02:27:00 AM EDT [facility] Name Value Range Interpretation Code Description Data [place] rce(s) Supporting Document(s) [facility] SOURCE R [facility] COLOR yellow NORMAL: Yellow [facility] CLARITY clear NORMAL: Clear [facility] Specific gravity of Urine by Test strip 1.020 1.001 - 1.030 [facility] pH 6 5 - 9 [facility] Glucose [Mass/volume] in Urine by Test strip NORM NORMAL: Negat [facility] Bilirubin.total [Presence] in Urine by Test strip NEG NORMAL: Negative [facility] Ketones [Presence] in Urine by Test strip NEG NORMAL: Negative [facility] Protein [Mass/volume] in Urine by Test strip NEG NORMAL: Negat [facility] Nitrite [Presence] in Urine by Test strip NEG NORMAL: Negative [facility] BLOOD NEG NORMAL: Negative [facility] Leukocyte esterase [Presence] in Urine by Test strip NEG LISANDRA L: Negative [facility] Urobilinogen [Mass/volume] in Urine by Test strip 1 less kenna n 1.0 mg/dL [facility] MICROSCOPIC Not Indicate [facility] ID Date Data Source [id number] 10/30/2019 10:27:00 AM EDT [facility] Name Value Range Interpretation Code Description Data [place] rce(s) Supporting Document(s) BG FASTING 132 mg/dL 70-100 H [facility] TSH 0.526 microintl units/mL 0.358-3.740 [facility] ID Date Data Source [id number] 10/30/2019 10:27:00 AM EDT [facility] Name Value Range Interpretation Code Description Data [place] rce(s) Supporting Document(s) HCT 37.6 % 36.0-47.0 N [facility] HGB 11.8 g/dL 12.0-15.5 L [facility] MCH 31.4 G/DL pg 32.0-36.5 L [facility] MCHC 29.9 PG % 27.0-33.0 N [facility] PLATELETS 209 10 10*3/mm3 150-450 N [facility] RBC 3.94 10 10*6/mm3 4.00-5.40 L [facility] RDW 12.6 % 11.5-14.5 N [facility] WBC TOTAL 4.5 4.0-10.0 N [facility] ID Date Data Source [id number] 10/13/2019 03:25:00 PM EDT [facility] Name Value Range Interpretation Code Description Data [place] rce(s) Supporting Document(s) HCT 40.7 % 36.0-47.0 N [facility] HGB 13.3 g/dL 12.0-15.5 N [facility] MCH 32.7 G/DL pg 32.0-36.5 [facility] MCHC 30.4 PG % 27.0-33.0 N [facility] PLATELETS 288 10 10*3/mm3 150-450 N [facility] RBC 4.37 10 10*6/mm3 4.00-5.40 [facility] RDW 12.4 % 11.5-14.5 [facility] WBC TOTAL 8.7 4.0-10.0 [facility] ID Date Data Source [id number] 10/09/2019 02:09:00 AM EDT [facility] 1 OrderSheet [facility] Emergency Department [address] [place] [address] Phone #: ext- [phone] 10/09/2019 02:08 Patient: [...] 03:29 10/09/2019 Ack'd: 03:34 Meme 03:39 Meme BlairDESMOND X1 dose: 800 Evonne Hagen R.N., R.N.mg (NOW x1) Jeremie;GENERAL ORDERSOrder Description Priority Entered Acknowledged Initialed[Electronically signed by Evonne Hagen M.D. (03:51 10/09/2019)][Electronically signed by Meme Damon R.N. (07:10/09/2019)][Electronically locked by Meme Damon R.N. (:10/09/2019)] Name Value Range Interpretation Code Description Data [facility](s) Supporting Document(s) ID Date Data Source [id number] 10/09/2019 02:09:00 AM EDT [facility] 1 Medication Reconciliation Report [facility] Emergency Department [address] [place] [address] Phone #: ext- [phone] 10/09/2019 02:08 Patient: [...] Name Value Range Interpretation Code Description Data [facility](s) Supporting Document(s) ID Date Data Source [id number] 10/09/2019 02:09:00 AM EDT [facility] 1 Medication Administration Record [facility] Emergency Department [address] [place] [address] Phone #: ext- [phone] 10/09/2019 02:08 Patient: BRUNA LEE Sex: F : 1985 Age: 34yWeight: 81.1 kgHeight/Length: 60 inBMI: 34.9ALLERGIES: Penicillins, Sulfa Antibiotics Date/Time Medication Administered Medication OrderedGiven IBUPROFEN [PO] Ibuprofen 800 mg PO X1 dose: 96958:39 10/09/2019 Dose: 800 mg Tablets PO mg (NOW x1)Meme Maldonado R.N. Name Value Range Interpretation Code Description Data [place] r[facility](s) Supporting Document(s) ID Date Data Source [id number] 10/09/2019 02:09:00 AM EDT [facility] 1 General Instructions [facility] Emergency Department [address] [place] [address] Phone #: ext- [phone] 10/09/2019 02:08 Patient: [...] INFORMATIONViral Pharyngitis (Sore Throat) 2 General Instructions [facility] Emergency Department [address] [place] [address] Phone #: ext- [phone] 10/09/2019 02:08 Patient: [...] glass of warm water. 3 General Instructions [facility] Emergency Department [address] [place] [address] Phone #: ext- [phone] 10/09/2019 02:08 Patient: [...] breathing or noisy breathing 4 General Instructions [facility] Emergency Department [address] [place] [address] Phone #: ext- [phone] 10/09/2019 02:08 Patient: BRUNA LEE Sex: F : 1985 Age: 34y Muffled voice New rash Other symptoms are getting worse [id number] [email or web address]. [address] [place] [address]. All rights reserved. This information is not intended as asubstitute for professional medical care. Always follow your healthcare professional's instructions. You have been given the following additional information: Pharyngitis, Viral(Electronically signed by Evonne Hagen M.D. 10/09/2019 03:51) Name Value Range Interpretation Code Description Data [facility] rce(s) Supporting Document(s) ID Date Data Source [id number] 10/09/2019 02:09:00 AM EDT [facility] 1 Clinical Report - Nurses [facility] Emergency Department [address] [place] [address] Phone #: ext- [phone] 10/09/2019 02:08 Patient: BRUNA LEE Sex: F : 1985 Age: 34yTRIAGEHistorian: EMS and patient.Triage time: 02:08 10/09/2019.Chief Complaint: SORE THROAT.This started just prior to arrival. 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 (arthritis kind).EMS Treatment TRACK TEMPLATE MAKER:See EMS report.SEPSIS SCREEN: SIRS Screen: heart rate greater than 90. Sepsis Screen negative. No suspected orconfirmed signs of infection present. --02:14 10/09/19 Meme Maldonado R.N.02:11 10/09/19. BP: 130/86. MAP: 100. HR: 105. RR: 18. O2 saturation: 100%. Temp: 98.5 F. Pain levelnow: 12/05. --02:14 10/09/19 Meme Maldonado R.N.Treatment TRACK TEMPLATE MAKER:(Seen at [facility] for this issue within the last few [...] Maldonado R.N.AllergiesPenicillins.(hives) 2 Clinical Report - Nurses [facility] Emergency Department [address] [place] [address] Phone #: ext- [phone] 10/09/2019 02:08 Patient: [...] Dental decay. 3 Clinical Report - Nurses [facility] Emergency Department [address] [place] [address] Phone #: ext- [phone] 10/09/2019 02:08 Patient: BRUNA LEE Sex: F [...] Patient verbalized understanding. Written instructions provided in Vincentian. The patient was discharged by the physician. [...] e(s) Supporting Document(s) ID Date Data Source [id number] 10/09/2019 02:09:00 AM EDT [facility] 1 Clinical Report - Physicians/[facility] Emergency Department [address] [place] [address] Phone #: ext- [phone] 10/09/2019 02:08 Patient: [...] is well known to [facility] ER for multiple ER visits for multiple somatic and psychiatric complaints; tonight, she complains of sore throat, hoarse voice, bugs on her skin, etc.; pt has therapist in [place]). Similar symptoms previously. Patient has had similar [...] Hernia Repair. Medications: 2 Clinical Report - Physicians/[facility] Emergency Department [address] [place] [address] Phone #: ext- [phone] 10/09/2019 02:08 Patient: BRUNA LEE Sex: F [...] PROCEDURAL CONTROL VALID ){ KIT LOT # [id number] ){ KIT EXP DATE 120773 )The 3 Clinical Report - Physicians/Mid Levels [facility] Emergency Department [address] [place] [address] Phone #: ext- [phone] 10/09/2019 02:08 Patient: [...] was requested by: Evonne Hagen Reference #: [id number] Others' Prescriptions Patient Name: Bruna LeeBirth Date: 1985 Address: [address] [place], [place] [address]Sex: Female Rx Written Rx Dispensed Drug Quantity [...] sl film 56 28 MoehsJose J MD [facility] 05/01/2019 05/01/2019 buprenorphine-naloxone [...] #15 4 Clinical Report - Physicians/Mid Levels [facility] Emergency Department [address] [place] [address] Phone #: nye- [phone] 10/09/2019 02:08 Patient: BRUNA LEE Sex: F [...] unknown*. 5 Clinical Report - Physicians/Mid Levels [facility] Emergency Department [address] [place] [address] Phone #: ext- [phone] 10/09/2019 02:08 [id number] Sex: [facility] : 1985 Age: 34y Strattera [...] Name Value Range Interpretation Code Description Data [facility] Supporting Document(s) ID Date Data Source [id number] 10/09/2019 03:02:00 AM EDT [facility] Name Value Range Interpretation Code Description Data [facility](s) Supporting Document(s) RAPID STREP NEGATIVE NORMAL: NEGATIVE [facility] RAPID STREP REENTER NEGATIVE NORMAL: NEGATIVE [facility] { PROCEDURAL CONTROL VALID ){ KIT LOT # [id number] ){ KIT EXP DATE 493415 )The Strep A 2 assay utilizes isothermal [...] basis for treatment. ID Date Data Source [id number] 09/22/2019 02:34:28 PM EDT [facility] Measurements & CalculationsHeight: 61 inches [...] (ER) or urgent care clinic? Yes - [facility] Have you seen another healthcare provider? Yes - [facility] Have you seen a dentist? NoIntake [...] and this is different. Sees [facility] for her mental health issues (schizophrenia) and feels that this is going well.HPI performed by: Francesco Ritchie MD, September 22, 2019 2:52 PMTransitions of Care InboundProblem ReviewProblem List was reviewed and/or updated during this visit.Medication Reconciliation & ReviewMedication List was reviewed and/or updated during this visit, including review of any wurk-thq-yzoycak medications, herbal therapies, and/or supplements.Allergy ReviewAllergy List [...] Plan Problems:Added: Hematemesis - cause unknown (ICD-578.0) (EKP90-N84.0) Assessment: Instructions: Currently asymptomatic but worrisome enough to warrant further workup.Avoid NSAIDs and refer to GI.Return to ER if this occurs again.Assessed:Peripheral neuropathy (ICD-356.9) (CUE03-S91.9) Assessment: Instructions: I am not sure where [...] (Critical)Orders:Adult - Ofc Vst, EST, Level III [CPT-44687] Gastroenterology Consult [CPT-02788] Medications:GABAPENTIN 400 MG ORAL CAPSULE (GABAPENTIN) take one tablet by mouth three times daily as needed #90[Capsule] x 0 Route:ORAL Entered and Authorized by: Francesco Ritchie MD Method used: Electronically to [facility] (retail) [address] [place] [address] Note to Pharmacy: Route: ORAL; Indications: PERIPHERAL NEUROPATHY;BILATERAL CARPAL TUNNEL SYNDROME RxID: [id number] 1000 MG ORAL TABLET (LEVETIRACETAM) 1 pill po bid #60[Tablet] x 0 Route:ORAL Entered and Authorized by: Francesco Ritchie MD Method used: Electronically to [facility] (retail) [address] [place] [address] Note to Pharmacy: Route: ORAL; RxID: [id number] SUCCINATE 50 MG ORAL TABLET (SUMATRIPTAN SUCCINATE) take one tab po at the onset of headache. may repeat dose x one if no releif after two hours. #15[Tablet] x 0 Entered and Authorized by: Francesco Ritchie MD Method used: Electronically to [facility] (retail) [address] [place] [address] RxID: [id number] OMEPRAZOLE 20 MG ORAL TABLET DELAYED RELEASE (OMEPRAZOLE) One tablet by mouth every day #30[Tablet] x 2 Route:ORAL Entered and Authorized by: Francesco Ritchie MD Method used: Electronically to [facility] (retail) [address] [place] [address] Note to Pharmacy: Route: ORAL; RxID: [id number] DOXYCYCLINE MONOHYDRATE 100 MG ORAL TABLET (DOXYCYCLINE MONOHYDRATE) take one tablet by mouth twice daily x 5 days #10[Tablet] x 0 Route:ORAL Entered by: Demetria Elliott MA Authorized by: Mavis DIEGO Method used: Electronically to [facility] (retail) [address] [place] [address] RxID: [id number] signed by Francesco Ritchie MD on 09/22/2019 at 5:42 PM Name Value Range Interpretation Code Description Data [place] e(s) Supporting Document(s) ID Date Data Source [id number] 09/10/2019 10:45:00 PM EDT [facility] Name Value Range Interpretation Code Description Data [place] rce(s) Supporting Document(s) BG FASTING 96 mg/dL 70-100 [facility] ID Date Data Source [id number] 09/10/2019 10:45:00 PM EDT [facility] Name Value Range Interpretation Code Description Data [place] rce(s) Supporting Document(s) HCT 37.4 % 36.0-47.0 [facility] HGB 12.1 g/dL 12.0-15.5 [facility] MCH 32.4 G/DL pg 32.0-36.5 [facility] MCHC 30.2 PG % 27.0-33.0 [facility] PLATELETS 244 10 10*3/mm3 150-450 [facility] RBC 4.01 10 10*6/mm3 4.00-5.40 [facility] RDW 12.8 % 11.5-14.5 [facility] WBC TOTAL 4.9 4.0-10.0 [facility] ID Date Data Source [id number] 05/20/2019 11:42:55 AM EDT [facility] Measurements & CalculationsHeight: 61 inches [...] you seen another healthcare provider? Yes - [facility] Have you seen a dentist? NoRate [...] during this visit, including review of any adti-mrv-rqeeyfv medications, herbal therapies, and/or supplements.Allergy ReviewAllergy List [...] Problems:Added: Phlebitis and thrombophlebitis of unspecified site (QCF97-J86.9): right AC and right tibia Assessment: Instructions: May continue warm compresses 3-4 times daily as needed. Please try to keep extremities elevated. We have sent a prescription to your pharmacy today. Please take medication as prescribed. Please report any major side effects.Phlebitis and thrombophlebitis of unspecified site (ZYR79-F34.9): right AC and right tibia Assessment: right foot and right forearmAssessed:Tobacco use (ICD-305.1) (OHY32-S61.0) Assessment: Instructions: Please continue to try to quit smoking.Health Screening (ICD-V70.0) (UCF93-R35.9) Assessment: Instructions: Fasting labs ordered for you today. Please return prior to your next visit to have labs drawn. Please fast for 8-10 hours prior.Substance abuse (ICD-305.90) (GGU80-C65.10) Assessment: Instructions: Please try to avoid the [...] (Critical)BACTRIM (Critical)* SULFA ANTIBIOTICS (Critical)Orders:COMP METABOLIC PANEL [CPT-81625] CBC W/DIFF [CPT- 57871] HgBA1c [CPT-32350] LIPID PANEL [CPT-79157] TSH [CPT-66331] T-4 free [CPT- 70206] Vitamin D 250H Unspecified [CPT-05117] URINALYSIS [CPT-22113] VITAMIN B- 12 [CPT-44794] Folate (Folic Acid Serum) [CPT-70425] IRON [CPT-21278] Adult - Ofc Vst, EST, Level III [CPT-48157] Follow-Up Return to clinic: 2-3 weeks for follow up Additional Follow-Up: If symptoms worsen, please return to clinic or the ERClinical Visit Summary CompletedMedications:DOXYCYCLINE MONOHYDRATE 100 MG ORAL TABLET (DOXYCYCLINE MONOHYDRATE) take one tablet by mouth twice daily x 5 days #10[Tablet] x 0 Route:ORAL Entered and Authorized by: Mavis DIEGO Method used: Electronically to [facility] (retail) [address] [place] [address] Note to Pharmacy: Route: ORAL; Indications: PHLEBITIS AND THROMBOPHLEBITIS OF UNSPECIFIED SITE RxID: [id number] signed by Mavis DIEGO on 05/24/2019 at 11:37 PM ____ Name Value Range Interpretation Code Description Data [place] rce(s) Supporting Document(s) Procedure Social History Code Duration Value Status Description Data Source(s ) Smoking 03/30/2020 12:00:00 AM EST Current Smoker completed Curre nt Smoker eCW1 ([facility]) Smoking 03/30/2020 12:00:00 AM EST Current Smoker completed Curre nt Smoker eCW1 ([facility]) Smoking 03/30/2020 12:00:00 AM EST Current Smoker completed Curre nt Smoker eCW1 ([facility]) Smoking 03/30/2020 12:00:00 AM EST Current Smoker completed Curre nt Smoker eCW1 ([facility]) Smoking 03/01/2020 12:00:00 AM EST Current Smoker completed Curre nt Smoker eCW1 ([facility]) Smoking 03/01/2020 12:00:00 AM EST Current Smoker completed Curre nt Smoker eCW1 ([facility]) Smoking 03/01/2020 12:00:00 AM EST Current Smoker completed Curre nt Smoker eCW1 ([facility]) Smoking 02/18/2020 12:00:00 AM EST Current Smoker completed Curre nt Smoker eCW1 ([facility]) Smoking 12/24/2019 12:00:00 AM EDT Current Smoker completed Curre nt Smoker eCW1 ([facility]) Smoking 12/24/2019 12:00:00 AM EDT Current Smoker completed Curre nt Smoker eCW1 ([facility]) Smoking 12/24/2019 12:00:00 AM EDT Current Smoker completed Curre nt Smoker eCW1 ([facility]) Smoking 12/24/2019 12:00:00 AM EDT Current Smoker completed Curre nt Smoker eCW1 ([facility]) Smoking 12/24/2019 12:00:00 AM EDT Current Smoker completed Curre nt Smoker eCW1 ([facility]) Smoking 12/24/2019 12:00:00 AM EDT Current Smoker completed Curre nt Smoker eCW1 ([facility]) Smoking 12/24/2019 12:00:00 AM EDT Current Smoker completed Curre nt Smoker eCW1 ([facility]) Smoking 10/31/2019 12:00:00 AM EDT Current Smoker completed Curre nt Smoker eCW1 ([facility]) Smoking 10/31/2019 12:00:00 AM EDT Current Smoker completed Curre nt Smoker eCW1 ([facility]) Smoking 10/31/2019 12:00:00 AM EDT Current Smoker completed Curre nt Smoker eCW1 ([facility]) Vital Signs ID Date Data Source UNK Name Value Range Interpretation Code Description Data Source(s) Oxygen saturation in Arterial blood by Pulse oximetry 98 % 98 % eCW1 ([facility]) Respiratory rate 18 /min 18 /min eCW1 ([facility]) Heart rate 119 /min 119 /min eCW1 ([facility]) Body mass index (BMI) [Ratio] 35.74 kg/m2 35.74 kg/m2 eCW1 ([facility]) Body weight 183.0 [lb_av] 183.0 [lb_av] eCW1 ([facility]) Body height 60.0 [in_i] 60.0 [in_i] eCW1 ([facility]) Oxygen saturation in Arterial blood by Pulse oximetry 99 % 99 % eCW1 ([facility]) Respiratory rate 18 /min 18 /min eCW1 ([facility]) Heart rate 93 /min 93 /min eCW1 ([facility]) Body mass index (BMI) [Ratio] 35.27 kg/m2 35.27 kg/m2 eCW1 ([facility]) Body weight 180.6 [lb_av] 180.6 [lb_av] eCW1 ([facility]) Body height 60 [in_i] 60 [in_i] eCW1 ([facility]) Oxygen saturation in Arterial blood by Pulse oximetry 97 % 97 % eCW1 ([facility]) Respiratory rate 18 /min 18 /min eCW1 ([facility]) Heart rate 89 /min 89 /min eCW1 ([facility]) Body mass index (BMI) [Ratio] 36.48 kg/m2 36.48 kg/m2 eCW1 ([facility]) Body weight 186.8 [lb_av] 186.8 [lb_av] eCW1 ([facility]) Body height 60 [in_i] 60 [in_i] eCW1 ([facility]) Body height 60 [in_i] 60 [in_i] eCW1 ([facility]) Oxygen saturation in Arterial blood by Pulse oximetry 98 % 98 % eCW1 ([facility]) Respiratory rate 18 /min 18 /min eCW1 ([facility]) Heart rate 86 /min 86 /min eCW1 ([facility]) Body temperature 98.0 [degF] 98.0 [degF] eCW1 ( [facility]) Body mass index (BMI) [Ratio] 32.10 kg/m2 32.10 kg/m2 eCW1 ([facility]) Body weight 164.4 [lb_av] 164.4 [lb_av] eCW1 ([facility]) Oxygen saturation in Arterial blood by Pulse oximetry 99 % 99 % eCW1 ([facility]) Respiratory rate 18 /min 18 /min eCW1 ([facility]) Heart rate 100 /min 100 /min eCW1 ([facility]) Body temperature 98.7 [degF] 98.7 [degF] eCW1 ( [facility]) Body mass index (BMI) [Ratio] 30.70 kg/m2 30.70 kg/m2 eCW1 ([facility]) Body weight 157.2 [lb_av] 157.2 [lb_av] eCW1 ([facility]) Body height 60 [in_i] 60 [in_i] eCW1 ([facility]) ID Date Data Source [id number] 12/26/2019 01:56:00 PM EDT [facility] Name Value Range Interpretation Code Description Data Source(s) WEIGHT 72.3 kilos 72.3 kilos [facility] HEIGHT 152.4 centimeters 152.4 centimeters [facility] WEIGHT 75 kilos 75 kilos [facility] HEIGHT 152.4 centimeters 152.4 centimeters [facility] ID Date Data Source [id number] 12/10/2019 06:07:00 AM EDT [facility] Name Value Range Interpretation Code Description Data Source(s) WEIGHT 68 kilos 68 kilos [facility] HEIGHT 152.4 centimeters 152.4 centimeters [facility] WEIGHT 68.4 kilos 68.4 kilos [facility] HEIGHT 152.4 centimeters 152.4 centimeters [facility] ID Date Data Source [id number] 12/08/2019 01:43:00 PM EDT [facility] Name Value Range Interpretation Code Description Data Source(s) WEIGHT 75 kilos 75 [facility]ilos [facility] HEIGHT 152.4 centimeters 152.4 centimeters [facility] ID Date Data Source [id number] 12/08/2019 01:43:00 PM EDT [facility] Name Value Range Interpretation Code Description Data Source(s) WEIGHT 74 kilos 74 kilos [facility] HEIGHT 160.02 centimeters 160.02 centimeter s [facility] Patient Treatment Plan of Care Planned Activity Planned Date Details Description Data Source (s) Doxepin Hydrochloride 25 MG Oral Capsule 03/09/2020 12:00:00 AM EST eCW1 ([facility]) Doxepin Hydrochloride 25 MG Oral Capsule 03/09/2020 12:00:00 AM EST eCW1 ([facility]) Doxepin Hydrochloride 25 MG Oral Capsule 03/09/2020 12:00:00 AM EST eCW1 ([facility]) Clonidine Hydrochloride 0.2 MG Oral Tablet 12/24/2019 12:00:00 AM E DT eCW1 ([facility]) Clonidine Hydrochloride 0.2 MG Oral Tablet 12/24/2019 12:00:00 AM E DT eCW1 ([facility]) Clonidine Hydrochloride 0.2 MG Oral Tablet 12/24/2019 12:00:00 AM E DT eCW1 ([facility]) Clonidine Hydrochloride 0.2 MG Oral Tablet 12/24/2019 12:00:00 AM E DT eCW1 ([facility]) Clonidine Hydrochloride 0.2 MG Oral Tablet 12/24/2019 12:00:00 AM E DT eCW1 ([facility]) Clonidine Hydrochloride 0.2 MG Oral Tablet 12/24/2019 12:00:00 AM E DT eCW1 ([facility]) Clonidine Hydrochloride 0.2 MG Oral Tablet 12/24/2019 12:00:00 AM E DT eCW1 ([facility]) lisdexamfetamine dimesylate 50 MG Oral Capsule [Vyvans e] 11/04/2019 12:00:00 AM EDT eCW1 ([facility]) Clonazepam 0.5 MG Oral Tablet 11/04/2019 12:00:00 AM EDT eCW1 ([facility]) Citalopram 20 MG Oral Tablet [Celexa] 11/04/2019 12:00:00 AM EDT eCW1 ([facility]) Risperidone 3 MG Oral Tablet [Risperdal] 07/07/2019 12:00:00 AM EDT eCW1 ([facility]) Risperidone 3 MG Oral Tablet [Risperdal] 07/07/2019 12:00:00 AM EDT eCW1 ([facility]) Risperidone 2 MG Oral Tablet [Risperdal] 07/07/2019 12:00:00 AM EDT eCW1 ([facility]) Risperidone 2 MG Oral Tablet [Risperdal] 07/07/2019 12:00:00 AM EDT eCW1 ([facility]) Risperidone 3 MG Oral Tablet [Risperdal] 07/07/2019 12:00:00 AM EDT eCW1 ([facility])
[2020-04-11 18:21] LABS: HCG, SERUM QUALITATIVE NEGATIVE (NEGATIVE)
[2020-04-11 18:30] LABS: ALBUMIN 3.8 GM/DL (3.2-5.2); ALT/SGPT 39 U/L (12-78); BILIRUBIN,TOTAL 0.3 MG/DL (0.2-1.0); BLOOD UREA NITROGEN 17 MG/DL (7-18); C REACTIVE PROTEIN QUANTITATIV 2.58 MG/DL (0.00-0.30); CALCIUM LEVEL 8.3 MG/DL (8.5-10.1); CARBON DIOXIDE LEVEL 25 MEQ/L (21-32); CHLORIDE LEVEL 105 MEQ/L (98-107); CK-MB VALUE MASS < 1.0 NG/ML (<3.6); CPK CREATINE PHOSPHOKINASE 122 U/L (26-192); CREATININE FOR GFR 0.88 MG/DL (0.55-1.30); FERRITIN 135 NG/ML (8-252); GLOMERULAR FILTRATION RATE > 60.0 (>60); GLUCOSE, FASTING 90 MG/DL (70-100); LDH LACTATE DEHYDROGENASE 288 U/L (84-246); MAGNESIUM LEVEL 2.3 MG/DL (1.8-2.4); MB/CK RELATIVE INDEX 0.82 (< OR =4); POTASSIUM SERUM 4.8 MEQ/L (3.5-5.1); SODIUM LEVEL 139 MEQ/L (136-145); TOTAL PROTEIN 7.5 GM/DL (6.4-8.2); TROPONIN I < 0.02 NG/ML (< 0.10)
--- NOTE | 2020-04-11 18:59 | REP ---
INDICATION: Coronavirus workup. COMPARISON: Comparison chest x-ray 09 April 2020. TECHNIQUE: Portable upright AP chest radiograph. FINDINGS: The lungs are well inflated and free of infiltrate. Pleural angles are sharp. Heart size is normal. Pulmonary vasculature is not increased. EKG monitoring electrodes are seen. IMPRESSION: No active disease. <Electronically signed by Praveen Her > 04/11/20 [id number]
[2020-04-11 20:09] LABS: INR 0.85; PROTHROMBIN TIME 11.8 SECONDS (12.5-14.3)
[2020-04-11 20:12] LABS: D-DIMER QUANT 1015.03 ng/ml (<500)
--- NOTE | 2020-04-11 20:54 | ECGEPIP ---
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
[2020-04-11 21:00] VITALS: BP 112/8
== END 2020-04-11 21:05 | disposition home or self-care (01) ==
LOC: EDBD 17:10 → M ED 17:10
DX: F19.10 Other psychoactive substance abuse, uncomplicated (principal); U07.1 COVID-19; R06.02 Shortness of breath; G40.909 Epilepsy, unspecified, not intractable, without status epilepticus; Z86.19 Personal history of other infectious and parasitic diseases; Z79.899 Other long term (current) drug therapy; Z88.0 Allergy status to penicillin; Z88.8 Allergy status to other drugs, medicaments and biological substances; Z88.6 Allergy status to analgesic agent; Z88.2 Allergy status to sulfonamides

== ENCOUNTER 2020-04-20 16:40 | Emergency (ER) | payer OTHER ==
--- OUTSIDE RECORDS SUMMARY | 2020-04-20 16:45 | CCD ---
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 12 Active confirmed 00222769 Problem Methamphetamine abuse F15.10 Active confirmed 725003156 Problem Opioid abuse F11.10 Active confirmed 8707125 Problem Opioid use disorder, severe, in sustained remission, on maintenance therapy F11.21 Active confirmed 789761748 Problem Cannabis abuse F12.10 Active confirmed 81138 009 Problem Gastroesophageal reflux disease, esophagitis pre sence not specified K21.9 Active confirmed 541215091 Problem BMI 30.0-30.9,adult Z68.30 Active confirmed 818018201 Problem Obesity (BMI 30.0-34.9) E66.9 Active confirmed 052300139209665 Problem Tongue sore K14.6 Active confirmed 81652784 Problem Binge eating disorder F50.81 Active confirmed 667910089 Problem Polysubstance abuse F19.10 Active confirmed 845693054 Problem Schizoaffective disorder F25.9 Active confirmed 80122167 Problem Tobacco dependence F17.200 Active confirmed 60497316 Problem Oropharyngeal dysphagia R13.12 Active confirmed 06930267 Problem Carpal tunnel syndrome, bilateral G56.03 Active confirmed [id number] Problem History of drug abuse F19.11 Active confirmed 215165874 ALLERGIES Allergen (clinical drug ingredient) Drug/Non Drug Allergy do cumented on EMR Reaction Allergy Type Onset Date Status haloperidol Haldol([facility] Code:[address]-36) Unknown Drug Allergy Active olanzapine Zyprexa([facility] Code:[address]-10) Unknown Drug Allergy Active amoxicillin Amoxicillin([facility] Code:[address]-81) Unknown Drug Aller gy Active penicillin G Penicillin G Sodium([facility] Code:[address]-30) Unknown D rug Allergy Active sulfamethoxazole / trimethoprim Bactrim([facility] Code:[address]-86) Unknown Drug Allergy Active Sulfacet-R Unknown Drug Allergy Active ENCOUNTERS from 1987 to 2020-04-16 Encounter Location Date Provider Diagnosis [address] [address] Mar, Shira Ford IMMUNIZATIONS No Information SOCIAL [...] Notes Start Da te End Date Status Keppra 1000 MG 1 tablet Orally Twice a day for 30 days Active Sucralfate 1 GM 1 tablet on an empty stomach Orally Twice a day for 30 day(s) Active Risperdal 3 MG 1 tablet Orally twice a day for 15 days June, Active Celexa 20 MG 1 tablet Orally Once a day for 30 days Active Diphenhydramine 1 tab Oral twice a day fro EPS Active Clonidine HCl 0.2 MG 1 tablet Orally tid prn amxiety for 15 days Nov, Active Amitriptyline HCl 50 MG 1 tablet at bedtime Orally qhs for 30 days Active Prilosec OTC 20 MG 1 tablet 30 minutes before m orning meal Orally Once a day for 90 day(s) Active Doxepin HCl 25 MG 1 capsule at bedtime Orally (pt is decreasing amitript to 50mg) Once a day for 15 days Feb, Act merari Sumatriptan Succinate 1 daily orally daily and PRN for Migraine. for 14 days Active Buprenorphine HCl 8 MG 2 strips under the tongue an d allow to dissolve Sublingual Once a day Active Gabapentin 400 MG 1 capsule Orally three times a day for 30 days Active Loratadine 10 MG 1 tablet Orally Once a day for 30 day(s) Active PROCEDURES No Information RESULTS No Results REASON FOR VISIT Checkup on patient MEDICAL (GENERAL) HISTORY Type Description Date Medical History bilateral carpal tunnel Medical History Seizure Medical History GERD Surgical History hernia repair 2012 Hospitalization History drug overdose 2020 Goals [place] No Information Health Concerns No Information MEDICAL EQUIPMENT No Information MENTAL STATUS No Information FUNCTIONAL STATUS No Information ASSESSMENTS No Information PLAN OF TREATMENT Next Appt Details Provider Name:Jena Sheikh Renny, 2020-04-20 03:00:00 PM, [address] [place] [address], [phone], Insurance Providers Payer Name Payer Address Payer Phone Insured Name Patient Relati onship to Insured Coverage Start Date Coverage End Date [employer] [facility] [address] [facility] [address] Come,Melissa self
--- OUTSIDE RECORDS SUMMARY | 2020-04-20 16:45 | CCD ---
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 12 Active confirmed 90136375 Problem Methamphetamine abuse F15.10 Active confirmed 444235783 Problem Opioid abuse F11.10 Active confirmed 2278856 Problem Opioid use disorder, severe, in sustained remission, on maintenance therapy F11.21 Active confirmed 182706017 Problem Cannabis abuse F12.10 Active confirmed 78458 009 Problem Gastroesophageal reflux disease, esophagitis pre sence not specified K21.9 Active confirmed 504929746 Problem BMI 30.0-30.9,adult Z68.30 Active confirmed 218002772 Problem Obesity (BMI 30.0-34.9) E66.9 Active confirmed 947210327153926 Problem Tongue sore K14.6 Active confirmed 42319093 Problem Binge eating disorder F50.81 Active confirmed 503148518 Problem Polysubstance abuse F19.10 Active confirmed 664830746 Problem Schizoaffective disorder F25.9 Active confirmed 99520093 Problem Tobacco dependence F17.200 Active confirmed 83145262 Problem Oropharyngeal dysphagia R13.12 Active confirmed 24357069 Problem Carpal tunnel syndrome, bilateral G56.03 Active confirmed 94085366577762613 Problem History of drug abuse F19.11 Active confirmed 097240306 ALLERGIES Allergen (clinical drug ingredient) Drug/Non Drug Allergy do cumented on EMR Reaction Allergy Type Onset Date Status haloperidol Haldol([facility] Code:[address]-93) Unknown Drug Allergy Active olanzapine Zyprexa([facility] Code:[address]-37) Unknown Drug Allergy Active amoxicillin Amoxicillin([facility] Code:[address]-25) Unknown Drug Aller gy Active penicillin G Penicillin G Sodium([facility] Code:[address]-65) Unknown D rug Allergy Active sulfamethoxazole / trimethoprim Bactrim([facility] Code:[address]-97) Unknown Drug Allergy Active Sulfacet-R Unknown Drug Allergy Active ENCOUNTERS from 1987 to 2020-04-14 Encounter Location Date Provider Diagnosis [address] [address] [place], Shira Ford IMMUNIZATIONS No Information SOCIAL [...] Information RESULTS No Results REASON FOR VISIT TCM MEDICAL (GENERAL) HISTORY Type Description Date Medical History bilateral carpal tunnel Medical History Seizure Medical History GERD Surgical History hernia repair 2012 Hospitalization History drug overdose 2020 Goals Section No Information Health Concerns No Information MEDICAL EQUIPMENT No Information MENTAL STATUS No Information FUNCTIONAL STATUS No Information ASSESSMENTS No Information PLAN OF TREATMENT Next Appt Details Provider Name:Jena Lawson, 2020-04-20 03:00:00 PM, [address] [place] [address], [phone], Provider Name:Gasper Marquez, 04-23 02:00:00 PM, [address] [place] [address], [phone], Insurance Providers Payer Name Payer Address Payer Phone Insured Name Patient Relati onship to Insured Coverage Start Date Coverage End Date [facility] [employer] MEDICAID [address] [facility] [address] Desire,Melissa self
--- OUTSIDE RECORDS SUMMARY | 2020-04-20 16:47 | CCD ---
Author Author [facility] Organization [facility] Address Unknown Phone Unavailable Care Team Providers Care Domestic Violence Advocate Name Role Phone Kori FLORES Unavailable Unavailable Kori FOLRES Unavailable Unavailable Kori FLORES Unavailable Unavailable Kori FLORES Unavailable Unavailable Kori FLORSE Unavailable Unavailable Kori FLORES Unavailable Unavailable Kori FLORES Unavailable Unavailable Kori FLORES Unavailable Unavailable Kori FLORES Unavailable Unavailable Kori FLORES Unavailable Unavailable Kori FLORES Unavailable Unavailable MARK, L GINGER PA Unavailable Unavailable MAKR, L GINGER PA Unavailable Unavailable MARK, L [...] Jeremie HOGAN MD Unavailable Unavailable JESICA, @ [facility] Unavailable Unavailable BEHZAD HOGAN MD Unavailable Unavailable Ching, Reginah W Kassidy SALES REPRESENTATIVES-C Unavailable Unavailabl e Ching, Reginah W Kassidy SALES REPRESENTATIVES-C Unavailable Unavailabl e Ching, Reginah W Kassidy SALES REPRESENTATIVES-C Unavailable Unavailabl e Ching, Reginah W Kassidy SALES REPRESENTATIVES-C Unavailable Unavailabl e Ching, Reginah W Kassidy SALES REPRESENTATIVES-C Unavailable Unavailabl e Ching, Reginah W Kassidy SALES REPRESENTATIVES-C Unavailable Unavailabl e Ching, Reginah W Kassidy SALES REPRESENTATIVES-C Unavailable Unavailabl e Ching, Reginah W Kassidy SALES REPRESENTATIVES-C Unavailable Unavailabl e Ching, Reginah W Kassidy SALES REPRESENTATIVES-C Unavailable Unavailabl e Ching, Reginah W Kassidy SALES REPRESENTATIVES-C Unavailable Unavailabl e Ching, Reginah W Kassidy SALES REPRESENTATIVES-C Unavailable Unavailabl e Ching, Reginah W Kassidy SALES REPRESENTATIVES-C Unavailable Unavailabl e Ching, Reginah W Kassidy SALES REPRESENTATIVES-C Unavailable Unavailabl e Ching, Reginah W Kassidy SALES REPRESENTATIVES-C Unavailable Unavailabl e Ching, Reginah W Kassidy SALES REPRESENTATIVES-C Unavailable Unavailabl e Ching, Reginah W Kassidy SALES REPRESENTATIVES-C Unavailable Unavailabl e Ching, Elijah Yi SALES REPRESENTATIVES-C Unavailable Unavailabl e Ching, Elijah Yi SALES REPRESENTATIVES-C Unavailable Unavailabl e Ching, Elijah Yi SALES REPRESENTATIVES-C Unavailable Unavailabl e Ching, Elijah Yi SALES REPRESENTATIVES-C Unavailable Unavailabl e Ching, Elijah Yi SALES REPRESENTATIVES-C Unavailable Unavailabl e Ching, Elijah Yi SALES REPRESENTATIVES-C Unavailable Unavailabl e Ching, Elijah Yi SALES REPRESENTATIVES-C Unavailable Unavailabl e Ching, Elijah Yi SALES REPRESENTATIVES-C Unavailable Unavailabl e Ching, Elijah Yi SALES REPRESENTATIVES-C Unavailable Unavailabl e Ching, Elijah Yi SALES REPRESENTATIVES-C Unavailable Unavailabl e Ching, Elijah Yi SALES REPRESENTATIVES-C Unavailable Unavailabl e Ching, Elijah Yi SALES REPRESENTATIVES-C Unavailable Unavailabl e Ching, Elijah Yi SALES REPRESENTATIVES-C Unavailable Unavailabl e Ching, Elijah Yi SALES REPRESENTATIVES-C Unavailable Unavailabl e Ching, Elijah Yi SALES REPRESENTATIVES-C Unavailable Unavailabl e Ching, Elijah Yi SALES REPRESENTATIVES-C Unavailable Unavailabl e Lino Marie MD Unavailable [...] BROWN, L JANE Unavailable Unavailable DESJARLAIS, KAROLYN PRINTED CIRCUIT BOARD LAYOUT DESIGNER Unavailable Unavailable DESJARLAIS, KAROLYN PRINTED CIRCUIT BOARD LAYOUT DESIGNER Unavailable Unavailable DESJARLAIS, KAROLYN PRINTED CIRCUIT BOARD LAYOUT DESIGNER Unavailable Unavailable DESJARLAIS, KAROLYN PRINTED CIRCUIT BOARD LAYOUT DESIGNER Unavailable Unavailable DESJARLAIS, KAROLYN PRINTED CIRCUIT BOARD LAYOUT DESIGNER Unavailable Unavailable DESJARLAIS, KAROLYN PRINTED CIRCUIT BOARD LAYOUT DESIGNER Unavailable Unavailable DESJARLAIS, KAROLYN PRINTED CIRCUIT BOARD LAYOUT DESIGNER Unavailable Unavailable DESJARLAIS, KAROLYN PRINTED CIRCUIT BOARD LAYOUT DESIGNER Unavailable Unavailable DESJARLAIS, KAROLYN PRINTED CIRCUIT BOARD LAYOUT DESIGNER Unavailable Unavailable MAHESH RECINOS Unavailable Unavailable Lester, Mavis SALES REPRESENTATIVES SALES REPRESENTATIVES Unavailable Unavailable Lester, A Mavis SALES REPRESENTATIVES Unavailable Unavailable Lester, A Mavis SALES REPRESENTATIVES Unavailable Unavailable Lester, A Mavis SALES REPRESENTATIVES Unavailable Unavailable Lester, A Mavis SALES REPRESENTATIVES Unavailable Unavailable Lester, A Mavis SALES REPRESENTATIVES Unavailable Unavailable Lester, A Mavis SALES REPRESENTATIVES Unavailable Unavailable Lester, A Mavis SALES REPRESENTATIVES Unavailable Unavailable Lester, A Mavis SALES REPRESENTATIVES Unavailable Unavailable Lester, A Mavis SALES REPRESENTATIVES Unavailable Unavailable Lester, A Mavis SALES REPRESENTATIVES Unavailable Unavailable Lester, A Mavis SALES REPRESENTATIVES Unavailable Unavailable Lester, A Mavis SALES REPRESENTATIVES Unavailable Unavailable Lester, A Mavis SALES REPRESENTATIVES Unavailable Unavailable Lester, A Mavis SALES REPRESENTATIVES Unavailable Unavailable Lester, A Mavis SALES REPRESENTATIVES Unavailable Unavailable Lester, A Mavis SALES REPRESENTATIVES Unavailable Unavailable Lester, A Mavis SALES REPRESENTATIVES Unavailable Unavailable Lester, A Mavis SALES REPRESENTATIVES Unavailable Unavailable Lester, A Mavis SALES REPRESENTATIVES Unavailable Unavailable Lester, A Mavis SALES REPRESENTATIVES Unavailable Unavailable Lester, A Mavis SALES REPRESENTATIVES Unavailable Unavailable Lester, A Mavis SALES REPRESENTATIVES Unavailable Unavailable Lester, A Mavis SALES REPRESENTATIVES Unavailable Unavailable Lester, A Mavis SALES REPRESENTATIVES Unavailable Unavailable Lester, A Mavis SALES REPRESENTATIVES Unavailable Unavailable Lester, A Mavis SALES REPRESENTATIVES Unavailable Unavailable Lester, A Mavis SALES REPRESENTATIVES Unavailable Unavailable Lester, A Mavis SALES REPRESENTATIVES Unavailable Unavailable BLUM, KATRIN Unavailable Unavailable Re-disclosure [...] is protected by Article 27-F of the [facility] Public Health law. If you continue you may have access to information: Regarding HIV / AIDS; Provided by facilities licensed or operated by the [facility] Office of Mental Health; or Provided by the [facility] Office for People With Developmental Disabilities. If such information is present, then the following [facility] mandated warning applies: This information has [...] law may result in a fine or fci sentence or both. A general authorization for the release of medical or other information is NOT sufficient authorization for further disc losure. Allergies and Adverse Reactions Type Description Substance Reaction Status Data Source(s ) Drug allergy Drug allergy AMOXICLIIN SWELLING, HIVES R [facility] Drug allergy olanzapine ol[facility]apine [facility] Drug allergy trimethoprim trimethoprim "BLISTERS IN MOUTH" [facility] Drug allergy sulfamethoxazole sulfamethoxazole "BLISTERS IN MOUTH" [facility] Drug allergy haloperidol haloperidol [facility] Drug allergy Sulfa (Sulfonamide Antibiotics) Sulfa (Sulfonami de Antibiotics) "BLISTERS IN MOUTH" [facility] Drug allergy Penicillins Penicillins SWELLING, HIVES SV R er [facility] Encounters Encounter Providers Location Date Indications Data Source(s ) Outpatient Attender: JANE EDWARD 04/20/2020 03:00:00 PM [facility] Outpatient [facility] 04/16/2020 12:00:00 AM EST eCW1 ([facility]) Outpatient Attender: FAHAD MOONEY 04/15/2020 09:45:0 0 AM [facility] Outpatient [facility] 04/12/2020 12:00:00 AM EST eCW1 ([facility]) Outpatient [facility] 04/08/2020 12:00:00 AM EST eCW1 ([facility]) Outpatient [facility] 04/08/2020 12:00:00 AM EST eCW1 ([facility]) Outpatient [facility] 04/08/2020 12:00:00 AM EST eCW1 ([facility]) Outpatient [facility] 04/05/2020 12:00:00 AM EST eCW1 ([facility]) Outpatient Attender: NATHAN PAUL PA-C 03/30/2020 10:30:00 AM [facility] Outpatient Attender: Shira Youngblood PA-C 03/30/2020 10:18 :00 AM [facility] Outpatient [facility] 03/30/2020 12:00:00 AM EST eCW1 ([facility]) Outpatient Attender: JANE EDWARD 03/23/2020 02:00:00 PM [facility] Outpatient Attender: JANE EDWARD 03/17/2020 10:30:00 AM [facility] Outpatient Attender: JANE EDWARD 03/11/2020 04:00:00 PM E [facility] Attender: FAHAD MOONEY 03/11/2020 06:30:0 0 AM [facility] Outpatient Attender: KAROLYN VAN NP 03/09/2020 03: 40:00 PM [facility] Outpatient [facility] 03/03/2020 12:00:00 AM EST eCW1 ([facility]) Outpatient Attender: Shira Fernándezrer: Shira Youngblood PA-C EMERGENCY ROOM-LAB 03/01/2020 04:49:00 PM EST - 03/01/2020 04:49:00 PM [facility] Outpatient Attender: Shiar Youngblood PA-C 03/01/2020 03:45 :00 PM [facility] Outpatient [facility] 03/01/2020 12:00:00 AM EST eCW1 ([facility]) Outpatient [facility] 03/01/2020 12:00:00 AM EST eCW1 ([facility]) Outpatient Attender: KAROLYN VAN NP 02/18/2020 02: 40:00 PM [facility] Outpatient Attender: Kassidy SERRANO 02/18/2020 10:00:0 0 AM [facility] Outpatient [facility] 02/18/2020 12:00:00 AM EST eCW1 ([facility]) Outpatient [facility] 02/10/2020 12:00:00 AM EST eCW1 ([facility]) Outpatient [facility] 02/03/2020 12:00:00 AM EST eCW1 ([facility]) Outpatient [facility] 01/14/2020 12:00:00 AM EST eCW1 ([facility]) Outpatient [facility] 01/06/2020 12:00:00 AM EST eCW1 ([facility]) Outpatient Attender: JOHNATHON PATEL 01/02/2020 10:06:00 A M [facility] Outpatient [facility] 01/02/2020 12:00:00 AM EST eCW1 ([facility]) Outpatient Attender: JANE EDWARD 01/01/2020 02:30:00 PM [facility] Outpatient Attender: KAROLYN VAN NP 12/24/2019 11: 00:00 AM EDT [facility] Outpatient Attender: Shira Youngblood PA-C 12/24/2019 08:24 :00 AM EDT [facility] Outpatient [facility] 12/24/2019 12:00:00 AM EDT eCW1 ([facility]) Outpatient Attender: JANE EDWARD 12/23/2019 01:54:00 PM E [facility] Outpatient [facility] 12/23/2019 12:00:00 AM EDT eCW1 ([facility]) Outpatient Attender: Mavis DIEGO 12/12/2019 11:3 5:02 AM EDT [facility] Outpatient Attender: JANE EDWARD 12/11/2019 03:00:00 PM E [facility] Outpatient [facility] 12/09/2019 12:00:00 AM EDT eCW1 ([facility]) Outpatient Attender: Mavis PATEL 12/05/2019 01:2 6:01 PM EDT [facility] Inpatient Attender: PRERNA RIOS MDAdmitter: PRERNA Hopson MD ER-3RD 12/05/2019 10:08:00 AM EDT - 12/10/2019 01:07:00 PM EDT [facility] Patient discharged. Outpatient Attender: NATHAN PAUL PA-C 12/05/2019 09:03:00 AM [facility] Admission cancelled. Disregard status an d admitted date. Inpatient Attender: BEHZAD HOGAN MD Attender: BEHZAD HOGAN MDAttender: DIOGENES BUENO MDAttender: DIOGENES BUENO MDAdmitter: BEHZAD HOGAN MD ER-ICU 12/04/2019 11:06:00 PM EDT - 12/05/2019 10:03:00 AM EDT [facility] Patient discharged. Emergency Attender: GINGER Salaser: Melissa Youngblood PA-C EMERGENCY ROOM-ER 12/04/2019 04:21:00 PM EDT - 12/04/2019 08:40:00 PM EDT [facility] Patient discharged. Outpatient Attender: KAROLYN VAN NP 12/04/2019 03: 11:00 PM EDT [facility] Outpatient Attender: Mavis DIEGO FP 11/29/2019 07:0 4:03 PM EDT [facility] Outpatient Attender: JOHNATHON DIEGO FP 11/29/2019 07:04:01 P M EDT [facility] Outpatient Attender: Mavis DIEGO FP 11/24/2019 12:2 9:00 PM EDT [facility] Emergency Attender: EVONNE Garzasultant: STAFF NON 11/07/2019 12:19:00 AM EDT - 11/07/2019 04:20:00 AM EDT [facility] Patient discharged. Outpatient [facility] 11/07/2019 12:00:00 AM EDT eCW1 ([facility]) Outpatient Attender: Mavis DIEGO FP 11/04/2019 02:2 6:02 PM EDT [facility] Outpatient Attender: KAROLYN VAN NP 11/04/2019 11: 40:00 AM EDT [facility] Outpatient Attender: Mavis DIEGO FP 11/02/2019 01:2 6:00 PM EDT [facility] Outpatient Attender: Mavis DIEGO FP 10/31/2019 06:0 2:00 PM EDT [facility] Outpatient Attender: JOHNATHON DIEGO FP 10/31/2019 06:01:59 P M EDT [facility] Outpatient Attender: Mavis DIEGO FP 10/31/2019 06:0 1:03 PM EDT [facility] Outpatient Attender: JOHNATHON DIEGO FP 10/31/2019 06:01:01 P M EDT [facility] Outpatient Attender: Shira Youngblood PA-C 10/31/2019 09:06 :00 AM EDT [facility] Outpatient [facility] 10/31/2019 12:00:00 AM EDT eCW1 ([facility]) Outpatient Attender: JANE EDWARD 10/27/2019 11:00:00 AM E [facility] Outpatient Attender: KAROLYN VAN NP 10/21/2019 03: 20:00 PM EDT [facility] Emergency Attender: EVONNE Pottsltant: STAFF NON 10/09/2019 02:09:00 AM EDT - 10/09/2019 03:44:00 AM EDT [facility] ital Patient discharged. Outpatient Attender: KATRIN BLUM 10/06/2019 09:37:00 AM ED T [facility] Outpatient Attender: Mavis DIEGO FP 09/25/2019 04:0 9:01 PM EDT [facility] Outpatient Attender: Mavis DIEGO FP 09/25/2019 04:0 7:59 PM EDT [facility] Outpatient Attender: JOHNATHON DIEGO FP 09/23/2019 10:31:00 A M EDT [facility] Outpatient Attender: JOHNATHON DIEGO FP 09/23/2019 10:30:01 A M EDT [facility] Outpatient Attender: JOHNATHON DIEGO FP 09/23/2019 12:02:09 A M EDT [facility] Outpatient Attender: JOHNATHON DIEGO FP 09/22/2019 05:44:02 P M EDT [facility] Outpatient Attender: Mavis DIEGO FP 09/22/2019 05:4 2:59 PM EDT [facility] Outpatient Attender: JOHNATHON DIEGO FP 09/22/2019 02:38:00 P M EDT [facility] Outpatient Attender: Mavis DIEGO FP 09/22/2019 12:0 5:01 PM EDT [facility] Outpatient Attender: JOHNATHON DIEGO FP 09/22/2019 07:56:01 A M EDT [facility] Outpatient Attender: Mavis DIEGO FP 09/16/2019 05:0 8:02 AM EDT [facility] Outpatient Attender: Mavis DIEGO FP 09/14/2019 05:1 9:00 PM EDT [facility] Outpatient Attender: JOHNATHON DIEGO FP 09/14/2019 05:19:00 P M EDT [facility] Outpatient Attender: Mavis DIEGO FP 09/12/2019 11:5 3:00 AM EDT [facility] Outpatient Attender: Mavis DIEGO FP 09/10/2019 11:0 6:01 PM EDT [facility] Outpatient Attender: JOHNATHON DIEGO FP 09/10/2019 11:06:01 P M EDT [facility] Outpatient Referrer: Femi Marie MD 08/15/2019 05:44:00 A M EDT [facility] Outpatient Attender: Mavis DIEGO FP 08/06/2019 09:5 2:01 AM EDT [facility] Outpatient Attender: JOHNATHON DIEGO FP 08/05/2019 07:41:16 P M EDT [facility] Outpatient Attender: Mavis DIEGO FP 08/05/2019 09:2 3:03 AM EDT [facility] Outpatient Attender: JHONATHON DIEGO FP 08/05/2019 09:23:01 A M EDT [facility] Outpatient Attender: KATRIN BLUM 08/04/2019 09:42:00 AM ED [facility] Outpatient Attender: Mavis DIEGO FP 08/01/2019 10:3 1:00 AM EDT [facility] Outpatient Attender: Mavis DIEGO FP 08/01/2019 10:2 7:02 AM EDT [facility] Outpatient Attender: JOHNATHON DIEGO FP 07/30/2019 11:31:01 A M EDT [facility] Outpatient Attender: KATRIN BLUM 07/07/2019 03:30:00 PM ED [facility] Outpatient Attender: Mavis DIEGO FP 07/04/2019 10:3 3:02 AM EDT [facility] Outpatient Attender: Mavis DIEGO FP 07/03/2019 01:5 2:01 PM EDT [facility] Outpatient Attender: Mavis DIEGO FP 07/02/2019 10:2 8:02 AM EDT [facility] Outpatient Attender: Mavis DIEGO FP 07/01/2019 09:5 7:00 AM EDT [facility] Outpatient Attender: JOHNATHON DIEGO FP 07/01/2019 08:57:00 A M EDT [facility] Outpatient Referrer: Femi Marie MD 07/01/2019 04:55:00 A M EDT [facility] Outpatient Attender: JOHNATHON DIEGO FP 06/30/2019 04:21:00 P M EDT [facility] Outpatient Attender: Mavis DIEGO FP 06/22/2019 06:0 1:59 PM EDT [facility] Outpatient Attender: Mavis Batista SALES REPRESENTATIVES FP 06/17/2019 03:3 2:01 PM EDT [facility] Outpatient Attender: JOHNATHON Batista JOHNATHON FP 05/27/2019 12:22:00 P M EDT [facility] Outpatient Attender: Mavis Batista JOHNATHON FP 05/24/2019 11:3 7:01 PM EDT [facility] Outpatient Attender: JOHNATHON Batista JOHNATHON FP 05/20/2019 12:36:01 P M EDT [facility] Outpatient Attender: JOHNATHON Batista JOHNATHON FP 05/20/2019 11:56:00 A M EDT [facility] Outpatient Attender: JOHNATHON Batista JOHNATHON FP 05/20/2019 11:42:01 A M EDT [facility] Outpatient Attender: JOHNATHON Batista JOHNATHON FP 05/01/2019 03:31:00 P M EST [facility] Outpatient Attender: Mavis Batista JOHNATHON FP 04/28/2019 10:4 4:01 AM [facility] Outpatient Attender: KATRIN BLUM 04/21/2019 10:29:00 AM [facility] Outpatient Attender: JOHNATHON DIEGO FP 04/15/2019 12:44:01 P M [facility] Outpatient Attender: MAHESH RECINOS 02/24/2019 01:46:00 PM [facility] Outpatient Attender: JANE EDWARD 02/21/2019 10:00:00 AM [facility] Outpatient Attender: MAHESH RECINOS 02/10/2019 02:18:00 PM [facility] Inpatient Attender: CHAO MARI MDAttdoug harjinder: PRERNA RIOS MDAdmitter: PRERNA RIOS MD ER-3RD 12/23/2018 04:01:00 PM EDT - 12/26/2018 01:22:00 PM EDT [facility] Patient discharged. Inpatient Attender: ONDINA RAMIREZ MDAdmitter: ONDINA RAMIREZ MD E R-ICU 12/19/2018 05:26:00 PM EDT - 12/23/2018 03:42:00 PM EDT [facility] Patient discharged. Emergency Attender: MATIAS MIKE EMERGENCY ROOM-ER 03:51:00 PM EDT - 12/19/2018 04:47:00 PM [facility] Patient discharged. Medications Medication Brand [...] {capsule_at_bedtime} active Doxepin HCl 25 MG eCW1 ([facility] jimena) Doxepin Hydrochloride 25 MG Oral Capsule Doxepin HCl 25 MG D oxepin HCl 25 MG 03/09/2020 12:00:00 AM EST 1.0 {capsule_at_bedtime} active Doxepin HCl 25 MG eCW1 ([facility] jimena) Doxepin Hydrochloride 25 MG Oral Capsule Doxepin HCl 25 MG D oxepin HCl 25 MG 03/09/2020 12:00:00 AM EST 1.0 {capsule_at_bedtime} active [facility]in [facility] Doxepin Hydrochloride 25 MG Oral Capsule Doxepin HCl 25 MG D oxepin HCl 25 MG 03/09/2020 12:00:00 AM EST 1.0 {capsule_at_bedtime} active Doxepin HCl 25 MG [facility] Doxepin Hydrochloride 25 MG Oral Capsule Doxepin HCl 25 MG D oxepin HCl 25 MG 03/09/2020 12:00:00 AM EST 1.0 {capsule_at_bedtime} active Doxepin HCl 25 MG eCW1 ([facility] jimena) Doxepin Hydrochloride 25 MG Oral Capsule Doxepin HCl 25 MG D oxepin HCl 25 MG 03/09/2020 12:00:00 AM EST 1.0 {capsule_at_bedtime} active Doxepin HCl 25 MG [facility]CW1 [facility] Doxepin Hydrochloride 25 MG Oral Capsule Doxepin HCl 25 MG D oxepin HCl 25 MG 03/09/2020 12:00:00 AM EST 1.0 {capsule_at_bedtime} active Doxepin HCl 25 MG [facility]CW1 ([facility] 8-2 mg 03/03/2020 12:00:00 AM EST [...] Clonidine HCl 0.2 MG [facility]CW1 ([facility] Clonidine Hydrochloride 0.2 MG Oral Tablet Clonidine H Cl 0.2 MG Clonidine HCl 0.2 MG 12/24/2019 12:00:00 AM EDT 1.0 {tablet} activ e Clonidine HCl 0.2 MG eCW1 ([facility] jimena) Clonidine Hydrochloride 0.2 MG Oral Tablet Clonidine H Cl 0.2 MG Clonidine HCl 0.2 MG 12/24/2019 12:00:00 AM EDT 1.0 {tablet} activ e Clonidine HCl 0.2 MG [facility]CW1 ([facility] Clonidine Hydrochloride 0.2 MG Oral Tablet Clonidine H Cl 0.2 MG Clonidine HCl 0.2 MG 12/24/2019 12:00:00 AM EDT 1.0 {tablet} activ e Clonidine HCl 0.2 MG eCW1 ([facility]) Clonidine Hydrochloride 0.2 MG Oral Tablet Clonidine H Cl 0.2 MG Clonidine HCl 0.2 MG 12/24/2019 12:00:00 AM EDT 1.0 {tablet} activ e Clonidine HCl 0.2 MG eCW1 ([facility]) Clonidine Hydrochloride 0.2 MG Oral Tablet Clonidine H Cl 0.2 MG Clonidine HCl 0.2 MG 12/24/2019 12:00:00 AM EDT 1.0 {tablet} activ e Clonidine HCl 0.2 MG eCW1 ([facility]) Clonidine Hydrochloride 0.2 MG Oral Tablet Clonidine H Cl 0.2 MG Clonidine HCl 0.2 MG 12/24/2019 12:00:00 AM EDT 1.0 {tablet} suspe nded Clonidine HCl 0.2 MG eCW1 ([facility]) Clonidine Hydrochloride 0.2 MG Oral Tablet Clonidine H Cl 0.2 MG Clonidine HCl 0.2 MG 12/24/2019 12:00:00 AM EDT 1.0 {tablet} activ e Clonidine HCl 0.2 MG eCW1 ([facility]) Clonidine Hydrochloride 0.2 MG Oral Tablet Clonidine H Cl 0.2 MG Clonidine HCl 0.2 MG 12/24/2019 12:00:00 AM EDT 1.0 {tablet} activ e Clonidine HCl 0.2 MG eCW1 ([facility]) Clonidine Hydrochloride 0.2 MG Oral Tablet Clonidine H Cl 0.2 MG Clonidine HCl 0.2 MG 12/24/2019 12:00:00 AM EDT 1.0 {tablet} activ e Clonidine HCl 0.2 MG eCW1 ([facility]) Clonidine Hydrochloride 0.2 MG Oral Tablet Clonidine H Cl 0.2 MG Clonidine HCl 0.2 MG 12/24/2019 12:00:00 AM EDT 1.0 {tablet} activ e Clonidine HCl 0.2 MG eCW1 ([facility]) Clonidine Hydrochloride 0.2 MG Oral Tablet Clonidine H Cl 0.2 MG Clonidine HCl 0.2 MG 12/24/2019 12:00:00 AM EDT 1.0 {tablet} activ e Clonidine HCl 0.2 MG eCW1 ([facility]) Clonidine Hydrochloride 0.2 MG Oral Tablet Clonidine H Cl 0.2 MG Clonidine HCl 0.2 MG 12/24/2019 12:00:00 AM EDT 1.0 {tablet} suspe nded Clonidine HCl 0.2 MG eCW1 ([facility]) Clonidine Hydrochloride 0.2 MG Oral Tablet Clonidine H Cl 0.2 MG Clonidine HCl 0.2 MG 12/24/2019 12:00:00 AM EDT 1.0 {tablet} activ e Clonidine HCl 0.2 MG eCW1 ([facility]) Clonidine Hydrochloride 0.2 MG Oral Tablet Clonidine H Cl 0.2 MG Clonidine HCl 0.2 MG 12/24/2019 12:00:00 AM EDT 1.0 {tablet} activ e Clonidine HCl 0.2 MG eCW1 ([facility]) Clonidine Hydrochloride 0.2 MG Oral Tablet Clonidine H Cl 0.2 MG Clonidine HCl 0.2 MG 12/24/2019 12:00:00 AM EDT 1.0 {tablet} suspe nded Clonidine HCl 0.2 MG eCW1 ([facility]) Clonidine Hydrochloride 0.2 MG Oral Tablet Clonidine H Cl 0.2 MG Clonidine HCl 0.2 MG 12/24/2019 12:00:00 AM EDT 1.0 {tablet} activ e Clonidine HCl 0.2 MG eCW1 ([facility]) Clonidine Hydrochloride 0.2 MG Oral Tablet Clonidine H Cl 0.2 MG Clonidine HCl 0.2 MG 12/24/2019 12:00:00 AM EDT 1.0 {tablet} activ e Clonidine HCl 0.2 MG eCW1 ([facility]) 300 mg 12/13/2019 12:00:00 [...] 1.0 {tablet_at_bedtime} active Clonazepam 0 .5 MG [facility]1 [facility] [facility] Clonazepam 0.5 MG Oral Tablet Clonazepam 0.5 MG 11/04/2019 12:00:00 AM EDT 1.0 {tablet_at_bedtime} active Clonazepam 0 .5 MG eCW1 (Formerly Named [facility]) lisdexamfetamine dimesylate 50 MG Oral Capsule [Vyvans e] Vyvanse 50 MG Vyvanse 50 MG 11/04/2019 12:00:00 AM EDT 1.0 {capsule_in_the_morning} active Vyvanse 50 MG eCW1 (Formerly Named [facility]) Citalopram 20 MG Oral Tablet [Celexa] Celexa 20 MG Celexa 20 MG 11/04/2019 12:00:00 AM EDT 1.0 {tablet} active Ce elise 20 MG eCW1 (Formerly Named [facility]) Citalopram 20 MG Oral Tablet [Celexa] Celexa 20 MG Celexa 20 MG 11/04/2019 12:00:00 AM EDT 1.0 {tablet} active Ce elise 20 MG eCW1 (Formerly Named [facility]) lisdexamfetamine dimesylate 50 MG Oral Capsule [Vyvans e] Vyvanse 50 MG Vyvanse 50 MG 11/04/2019 12:00:00 AM EDT 1.0 {capsule_in_the_morning} active Vyvanse 50 MG eCW1 (Formerly Named [facility]) Citalopram 20 MG Oral Tablet [Celexa] Celexa 20 MG Celexa 20 MG 11/04/2019 12:00:00 AM EDT 1.0 {tablet} active Ce elise 20 MG eCW1 (Formerly Named [facility]) 75 mg 11/02/2019 12:00:00 AM EDT [...] 1.0 {tablet} active Risperdal 3 MG eCW1 (Formerly Named [facility]) Risperidone 3 MG Oral Tablet [Risperdal] Risperdal 3 MG Risp erdal 3 MG 07/07/2019 12:00:00 AM EDT 1.0 {tablet} active Risperdal 3 MG eCW1 (Formerly Named [facility]) Risperidone 3 MG Oral Tablet [Risperdal] Risperdal 3 MG Risp erdal 3 MG 07/07/2019 12:00:00 AM EDT 1.0 {tablet} active Risperdal 3 MG eCW1 (Formerly Named [facility]) Risperidone 3 MG Oral Tablet [Risperdal] Risperdal 3 MG Risp erdal 3 MG 07/07/2019 12:00:00 AM EDT 1.0 {tablet} active Risperdal 3 MG eCW1 (Formerly Named [facility]) Risperidone 2 MG Oral Tablet [Risperdal] Risperdal 2 MG Risp erdal 2 MG 07/07/2019 12:00:00 AM EDT 1.0 {tablet} active Risperdal 2 MG eCW1 (Formerly Named [facility]) Risperidone 3 MG Oral Tablet [Risperdal] Risperdal 3 MG Risp erdal 3 MG 07/07/2019 12:00:00 AM EDT 1.0 {tablet} active Risperdal 3 MG eCW1 (Formerly Named [facility]) Risperidone 3 MG Oral Tablet [Risperdal] Risperdal 3 MG Risp erdal 3 MG 07/07/2019 12:00:00 AM EDT 1.0 {tablet} active Risperdal 3 MG eCW1 (Formerly Named [facility]) Risperidone 3 MG Oral Tablet [Risperdal] Risperdal 3 MG Risp erdal 3 MG 07/07/2019 12:00:00 AM EDT 1.0 {tablet} active Risperdal 3 MG eCW1 (Formerly Named [facility]) Risperidone 3 MG Oral Tablet [Risperdal] Risperdal 3 MG Risp erdal 3 MG 07/07/2019 12:00:00 AM EDT 1.0 {tablet} active Risperdal 3 MG eCW1 (Formerly Named [facility]) Risperidone 3 MG Oral Tablet [Risperdal] Risperdal 3 MG Risp erdal 3 MG 07/07/2019 12:00:00 AM EDT 1.0 {tablet} active Risperdal 3 MG eCW1 (Formerly Named [facility]) Risperidone 2 MG Oral Tablet [Risperdal] Risperdal 2 MG Risp erdal 2 MG 07/07/2019 12:00:00 AM EDT 1.0 {tablet} active Risperdal 2 MG eCW1 (Formerly Named [facility]) Risperidone 3 MG Oral Tablet [Risperdal] Risperdal 3 MG Risp erdal 3 MG 07/07/2019 12:00:00 AM EDT 1.0 {tablet} active Risperdal 3 MG eCW1 (Formerly [facility]amed [facility]) Risperidone 3 MG Oral Tablet [Risperdal] Risperdal 3 MG Risp erdal 3 MG 07/07/2019 12:00:00 AM EDT 1.0 {tablet} active Risperdal 3 MG eCW1 (Formerly [facility]amed [facility]) Risperidone 3 MG Oral Tablet [Risperdal] Risperdal 3 MG Risp erdal 3 MG 07/07/2019 12:00:00 AM EDT 1.0 {tablet} active Risperdal 3 MG eCW1 (Formerly [facility]amed [facility]) Risperidone 3 MG Oral Tablet [Risperdal] Risperdal 3 MG Risp erdal 3 MG 07/07/2019 12:00:00 AM EDT 1.0 {tablet} active Risperdal 3 MG eCW1 (Formerly [facility]amed [facility]) Risperidone 3 MG Oral Tablet [Risperdal] Risperdal 3 MG Risp erdal 3 MG 07/07/2019 12:00:00 AM EDT 1.0 {tablet} active Risperdal 3 MG eCW1 (Formerly Named [facility]) Risperidone 3 MG Oral Tablet [Risperdal] Risperdal 3 MG Risp erdal 3 MG 07/07/2019 12:00:00 AM EDT 1.0 {tablet} active Risperdal 3 MG eCW1 (Formerly [facility]amed [facility]) Risperidone 2 MG Oral Tablet [Risperdal] Risperdal 2 MG Risp erdal 2 MG 07/07/2019 12:00:00 AM EDT 1.0 {tablet} active Risperdal 2 MG eCW1 (Formerly Named [facility]) Risperidone 3 MG Oral Tablet [Risperdal] Risperdal 3 MG Risp erdal 3 MG 07/07/2019 12:00:00 AM EDT 1.0 {tablet} active Risperdal 3 MG eCW1 (Formerly Named [facility]) Risperidone 3 MG Oral Tablet [Risperdal] Risperdal 3 MG Risp erdal 3 MG 07/07/2019 12:00:00 AM EDT 1.0 {tablet} active Risperdal 3 MG eCW1 (Formerly Named [facility]) Risperidone 3 MG Oral Tablet [Risperdal] Risperdal 3 MG Risp erdal 3 MG 07/07/2019 12:00:00 AM EDT 1.0 {tablet} active Risperdal 3 MG eCW1 (Formerly Named [facility]) 8-2 mg 06/27/2019 12:00:00 AM EDT [...] TABLET BY MOUTH AT BEDTIME SOLD: 03/18/2019 [facility] 8-2 mg 03/06/2019 12:00:00 AM EST film [address] 2 [facility] UNDER THE TONGUE ONCE DAILY MAXIMUM DAILY DOSE = 2 PLACE 2 [facility] UNDER THE TONGUE ONCE DAILY MAXIMUM DAILY DOSE = 2 SOLD: 03/06/2019 [facility] 150 mg 02/25/2019 12:00:00 AM EST tablet 60 TAKE ONE TABLET BY MOUTH TWICE A DAY TAKE ONE TABLET BY MOUTH TWICE A DAY SOLD: 02/25/2019 [facility] 80 mg 02/25/2019 [...] NEEDED FOR ANXIETY DAILY KURTIS [facility] 1,000 mg 01/01/2019 12:00:00 AM [...] TWICE A DAY SOLD: 04/15/2019 [facility] Insurance Providers Payer name Policy type / Coverage type Policy ID Covered libertarian ID Covered libertarian's relationship to dick Policy Dick Plan Information [facility] [id number] SP [id number] [facility] [id number] S [id number] [facility] MEDICAID [id number] S [id number] [facility](MCAID) O [id number] S [id number] [facility] MEDICAID [id number] S [id number] [facility] MEDICAID [id number] S [id number] Managed Care - [facility] Community Plan P [id number] S [id number] Medicaid S [id number] [facility] [id number] SP [id number] [facility] [id number] S [id number] [facility] [id number] SP [id number] [facility] COMM[facility] PLAN XIX [phone] MEDICAID [id number] SP [id number] [facility] Care [facility] Community Plan P [id number] S [id number] MEDICAID [id number] S [id number] MEDICAID [id number] S [id number] MEDICAID PROF FEES [id number] MEDICAID [id number] S [id number] [facility] [id number] S [id number] Medicaid S [id number] S [id number] [facility] Care [facility] P [id number] S [id number] [facility] SUBSTATION OPERATOR HELPER GENERATION DEPT [id number] SP [id number] Medicaid P [id number] S [id number] SELF PAY ONLY [id number] SP [id number] [facility] [id number] SP [id number] [facility] SUBSTATION OPERATOR HELPER GENERATION DEPT [id number] SP [id number] SELF PAY UNAVAILABLE SP UNAVAILA BLE Self Pay P UNAVAILABLE S UNAVAILA BLE Medicaid P [id number] S [id number] [facility] S UNAVAILA BLE [facility] P [id number] S [id number] Medicaid S UNAVAILABLE S UNAVAILA BLE Problems, Conditions, and Diagnoses Code Display Name Description Problem Type Effective Dates Data Source(s) F19.10 Polysubstance abuse Polysubstance abuse Problem 0 03/11/2020 12:00:00 AM EST eCW1 ([facility] jimena) F19.11 [id number] History of drug abuse Problem 03/01/2020 12: 00:00 AM EST eCW1 (Formerly Named [facility]) K14.6 [id number] Tongue sore Problem 03/01/2020 12:00:[address] eCW1 (Formerly Named [facility]) F19.10 [id number] Substance abuse Problem 12/24/2019 12:00:00 AM EDT eCW1 (Formerly Named [facility]) F50.81 [id number] Binge eating disorder Problem 11/04/2019 12: 00:00 AM EDT eCW1 (Formerly Named [facility]) G56.03 [id number] Carpal tunnel syndrome, bilateral Pr oblem 10/31/2019 12:00:00 AM EDT eCW1 ([facility] jimena) R13.12 [id number] Oropharyngeal dysphagia Problem 10/31/2019 1 2:00:00 AM EDT eCW1 (Formerly Named [facility]) F17.200 [id number] Tobacco dependence Problem 10/31/2019 12:00: 00 AM EDT eCW1 (Formerly Named [facility]) E66.9 [id number] Obesity (BMI 30.0-34.9) Problem 0 10/31/2019 12:00:00 AM EDT eCW1 ([facility] jimena) Z68.30 [id number] BMI 30.0-30.9,adult Problem 10/31/2019 12:00 :00 AM EDT eCW1 (Formerly Named [facility]) K21.9 [id number] Gastroesophageal ref lux disease, esophagitis presence not specified Problem 10/31/2019 12:00:00 AM EDT eCW1 ([facility]) K92.0 Hematemesis Hematemesis - cause unknown 020 05:42:44 PM EDT [facility] I80.9 Phlebitis and thrombophlebitis of unspec ified site Phlebitis and thrombophlebitis of unspecified site 05/20/2019 12:34:09 PM EDT [facility] right AC and right tibia F15.10 Other stimulant abuse, uncomplicated OTH ER STIMULANT ABUSE, UNCOMPLICATED Diagnosis 03/30/2020 10:30:00 AM EST [facility] F19.10 Other psychoactive substance abuse, unco mplicated OTHER PSYCHOACTIVE SUBSTANCE ABUSE, UNCOMPLICATED Diagnosis 03/30/2020 10:30:00 AM [facility] F43.12 Post-traumatic stress disorder, chronic POST-TRAUMATIC STRESS DISORDER, CHRONIC Diagnosis 03/30/2020 10:30:00 AM EST [facility] T14.8XXA OTHER INJURY OF UNSPECIFIED BODY REGION, INITIAL E OTHER INJURY OF UNSPECIFIED BODY REGION, INITIAL E Diagnosis 03/30/2020 10:18:00 AM [facility] K13.79 Other lesions of oral mucosa OTHER LESIONS OF ORAL MUC SINA Diagnosis 03/30/2020 10:18:00 AM [facility] F25.9 Schizoaffective disorder, unspecified SC HIZOAFFECTIVE DISORDER, UNSPECIFIED Diagnosis 03/30/2020 10:18:00 AM [facility] A04.72 ENTEROCOLITIS D/T CLOSTRIDIUM DIFFICILE, NOT SPCF RECUR ENTEROCOLITIS D/T CLOSTRIDIUM DIFFICILE, NOT SPCF RECUR Diagnosis 10:18:00 AM [facility] F11.21 Opioid dependence, in remission OPIOID DEPENDENC E, IN REMISSION Diagnosis 03/23/2020 02:00:00 PM [facility] F50.81 BINGE EATING DISORDER BINGE EATING DISORDER Diagnosis 03/23/2020 02:00:00 PM [facility] F90.0 Attention-deficit hyperactivity disorder , predominantly inattentive type ATTN-DEFCT HYPERACTIVITY DISORDER, PREDOM INATTENT Diagnosis 01/2021 03:40:00 PM [facility] Z13.29 Encounter for screening for other suspec keven endocrine disorder ENCOUNTER FOR SCREENING FOR OTH SUSPECTE Diagnosis 03/01/2020 04:49:00 PM [facility] Z82.61 Family history of arthritis FAMILY HISTORY OF ARTHRITI S Diagnosis 03/01/2020 03:45:00 PM [facility] Z13.220 Encounter for screening for lipoid disor ders ENCOUNTER FOR SCREENING FOR LIPOID DISORDERS Diagnosis 03/01/2020 03:45:00 PM [facility] Z82.69 Family history of other dise ases of the musculoskeletal system and connective tissue FAMILY HISTORY OF DISEASES OF THE MS SYS AND CONNE Diagnosis 03/01/2020 03:45:00 PM [facility] R50.9 Fever, unspecified FEVER, UNSPECIFIED Diagnosis 05/2020 03:45:00 PM [facility] 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, in r emission OTHER PSYCHOACTIVE SUBSTANCE ABUSE, IN REMISSION Diagnosis 03/01/2020 03:45:00 PM [facility] G56.03 CARPAL TUNNEL SYNDROME, BILATERAL UPPER LIMBS CARPAL TUNNEL SYNDROME, BILATERAL UPPER LIMBS Diagnosis 03/01/2020 03:45:00 PM [facility] james K21.9 Gastro-esophageal reflux disease without esophagitis GASTRO-ESOPHAGEAL REFLUX DISEASE WITHOUT ESOPHAGITIS Diagnosis 02/18/2020 10:00:00 AM [facility] F12.10 Cannabis abuse, uncomplicated CANNABIS ABUSE, UNCOMPLI CATED Diagnosis 12/24/2019 11:00:00 AM [facility] F11.10 Opioid abuse, uncomplicated OPIOID ABUSE, UNCOMPLICATE D Diagnosis 12/24/2019 11:00:00 AM [facility] R13.12 Dysphagia, oropharyngeal phase DYSPHAGIA, OROPHARYNGEA L PHASE Diagnosis 12/24/2019 08:24:00 AM [facility] M54.2 Cervicalgia CERVICALGIA Diagnosis 12/24/2019 08:24:00 AM [facility] T50.914D POISONING BY MULTIPLE UNSP DRUG/MEDS/BIO L SUBST, U POISONING BY MULTIPLE UNSP DRUG/MEDS/BIOL SUBST, U Diagnosis 12/24/2019 08:24:00 AM [facility] F19.20 Other psychoactive substance dependence, uncomplicated OTHER PSYCHOACTIVE SUBSTANCE DEPENDENCE, UNCOMPLIC Diagnosis 12/05/2019 10:08:00 AM [facility] R45.851 Suicidal ideations SUICIDAL IDEATIONS Diagnosis 10/2019 10:08:00 AM [facility] G40.909 Epilepsy, unspecified, not intractable, without status epilepticus EPILEPSY, UNSP, NOT INTRACTABLE, WITHOUT STATUS EP Diagnosis 10/2019 10:08:00 AM [facility] F32.2 Major depressive disorder, s rito episode, severe without psychotic features MAJOR DEPRESSV DISORD, SINGLE EPSD, SEV Diagnosis 12/05/2019 10:08:00 AM [facility] F25.1 Schizoaffective disorder, depressive typ e SCHIZOAFFECTIVE DISORDER, DEPRESSIVE TYPE Diagnosis 12/05/2019 10:08:00 AM [facility] Y92.[address] or not applicable UNSPECIFIED PLACE OR NOT APPLICABLE Diagnosis 12/04/2019 11:06:00 PM [facility] X58.XXXA Exposure to other specified factors, ini tial encounter EXPOSURE TO OTHER SPECIFIED FACTORS, INITIAL ENCOU Diagnosis 12/04/2019 11:06:00 P M [facility] T42.6X2A Poisoning by other antiepile ptic and sedative-hypnotic drugs, intentional self-harm, initial encounter POISN BY OTH ANTIEPLPTC AND SED-HYPNTC DRUGS, SLF- Diagnosis 12/04/2019 11:06:00 PM [facility] T40.902A Poisoning by unspecified psy chodysleptics [hallucinogens], intentional self-harm, initial encounter POISONING BY UNSP PSYCHODYSLEPTICS, SELF-HARM, INI Diagnosis 12/04/2019 11:06:00 PM [facility] K21.9 Gastro-esophageal reflux disease without esophagitis GASTRO-ESOPHAGEAL REFLUX DISEASE WITHOUT ESOPHAGIT Diagnosis 12/04/2019 11:06:00 PM [facility] F90.9 Attention-deficit hyperactivity disorder , unspecified type ATTENTION- DEFICIT HYPERACTIVITY DISORDER, UNSPECIF Diagnosis 12/04/2019 11:06:00 PM [facility] F43.10 Post-traumatic stress disorder, unspecif ied POST-TRAUMATIC STRESS DISORDER, UNSPECIFIED Diagnosis 12/04/2019 11:06:00 PM [facility] F43.23 Adjustment disorder with mixed anxiety a nd depressed mood ADJUSTMENT DISORDER WITH MIXED ANXIETY AND DEPRESS Diagnosis 12/04/2019 11:06:00 PM [facility] T42.4X2A Poisoning by benzodiazepines, intentiona l self-harm, initial encounter POISONING BY BENZODIAZEPINES, INTENTIONAL SELF-HARM, INIT Diagnosis 12/04/2019 11:06:00 PM [facility] Y93.89 Activity, other specified ACTIVITY, OTHER SPECIFIED Di agnosis 12/04/2019 04:21:00 PM [facility] Y92.[address] the place of o ccurrence of the external cause OT PLACES THE PLACE OF OCCURRENCE OF THE EXTER Diagnosis 09/2019 04:21:00 PM [facility] 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.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 O [facility] (CURRENT) DRUG THERAPY Diagnosis 12/04/2019 04:21:00 PM [facility] Z20.828 Contact with and (suspected) exposure to other viral communicable diseases CONTACT W AND EXPOSURE TO OTH VIRAL COMMUNICABLE D Diagnosis 12/04/2019 04:21:00 PM [facility] F17.210 Nicotine dependence, cigarettes, uncompl icated NICOTINE DEPENDENCE, CIGARETTES, UNCOMPLICATED Diagnosis 12/04/2019 04:21:00 PM [facility] T50.992A Poisoning by other drugs, me dicaments and biological substances, intentional self-harm, initial encounter POISONING BY OTH DRUG/MEDS/BIOL SUBST, SELF-HARM, Diagnosis 12/04/2019 04:21:00 PM [facility] R45.851 Suicidal ideations SUICIDAL IDEATIONS Diagnosis 09/2019 04:21:00 PM [facility] D02326 Nicotine dependence, cigarettes, uncompl icated Nicotine dependence, cigarettes, uncomplicated Diagnosis 11/07/2019 12:19:00 AM [facility] F1510 Other stimulant abuse, uncomplicated Other stimu lant abuse, uncomplicated Diagnosis 11/07/2019 12:19:00 AM [facility] G55676 Other psychoactive substance abuse with psychoactive substance-induced anxiety disorder Other psychoactive substance abuse with psychoactive substance- induced anxiety disorder Diagnosis 11/07/2019 12:19:00 AM [facility] R110 Nausea Nausea Diagnosis 11/07/2019 12:19:00 AM ED [facility] Z76.89 Persons encountering health services in other specified circumstances PERSONS ENCOUNTERING HEALTH SERVICES IN OTH CIRCUM Diagnosis 05/2019 09:06:00 AM [facility] Z71.9 Counseling, unspecified COUNSELING, UNSPECIFIED Diagno sis 10/31/2019 09:06:00 AM [facility] Z68.30 Body mass index (BMI) 30.0-30.9, adult B BOB MASS INDEX (BMI) 30.0-30.9, ADULT Diagnosis 10/31/2019 09:06:00 AM [facility] E66.9 Obesity, unspecified OBESITY, UNSPECIFIED Diagnosis 10/31/2019 09:06:00 AM [facility] R56.9 Unspecified convulsions UNSPECIFIED CONVULSIONS Diagno sis 10/31/2019 09:06:00 AM [facility] F909 Attention-deficit hyperactivity disorder , unspecified type Attention- deficit hyperactivity disorder, unspecified type Diagnosis 10/08 02:09:00 AM [facility] J029 Acute pharyngitis, unspecified Acute pharyngitis, unsp ecified Diagnosis 10/09/2019 02:09:00 AM [facility] F15.11 OTHER STIMULANT ABUSE, IN REMISSION OTHER STIMUL ANT ABUSE, IN REMISSION Diagnosis 02/24/2019 01:46:00 PM [facility] Z72.0 Tobacco use TOBACCO USE Diagnosis 02/21/2019 10:00:00 AM [facility] Surgeries/Procedures Procedure Description Date Indications Data Source(s) Psychological Tests, Neurobehavioral and Cognitive Status 12/06/2019 12:00:00 AM [facility] Introduction of Electrolytic and Water B alance Substance into Peripheral Vein, Percutaneous Approach 12/04/2019 12:00:00 AM [facility] Results ID Date Data Source [id number] 04/10/2020 02:50:00 PM EST [facility] Name Value Range Interpretation Code Description Data [place] rce(s) Supporting Document(s) SARS coronavirus 2 RNA [Presence] in Res piratory specimen by MARK with probe detection POSITIVE [facility] This lab was ordered by [facility] a nd reported by [facility]. ID Date Data Source [id number] 04/09/2020 02:48:00 AM EST [facility] Name Value Range Interpretation Code Description Data [place] rce(s) Supporting Document(s) SARS COVID ANTIGEN POSITIVE [facility] This lab was ordered by [facility] a nd reported by [facility]. ID Date Data Source [id number] 04/09/2020 02:46:00 AM EST [facility] Name Value Range Interpretation Code Description Data [place] rce(s) Supporting Document(s) SARS COVID ANTIGEN POSITIVE [facility] This lab was ordered by [facility] a nd reported by [facility]. ID Date Data Source [id number] 03/04/2020 12:09:00 PM EST [facility] Name Value Range Interpretation Code Description Data [place] rce(s) Supporting Document(s) FAZAL DIRECT Negative Negative [facility] Performed at: RN - [facility] [place] [id number] Director: Elsa Garcia MD, Phone: [phone] ID Date Data Source [id number] 03/04/2020 12:05:00 PM EST [facility] Name Value Range Interpretation Code Description Data [place] rce(s) Supporting Document(s) FAZAL Direct Negative Negative [facility] ID Date Data Source [id number] 03/03/2020 08:50:00 AM EST [facility] ADD ON TEST Name Value Range Interpretation Code Description Data [place] rce(s) Supporting Document(s) RHEUMATOID FACTOR SCREEN NEGATIVE NEGATIVE [facility] ID Date Data Source [id number] 03/03/2020 08:37:00 AM EST [facility] ADD ON TEST Name Value Range Interpretation Code Description Data [place] rce(s) Supporting Document(s) FREE T4 1.0 ng/dL 0.76-1.46 [facility] ID Date Data Source [id number] 03/03/2020 08:37:00 AM EST [facility] ADD ON TEST Name Value Range Interpretation Code Description Data [place] rce(s) Supporting Document(s) TSH 0.422 uIU/mL 0.36-3.74 [facility] ID Date Data Source [id number] 03/03/2020 08:11:00 AM EST [facility] ADD ON TEST Name Value Range Interpretation Code Description Data [place] rce(s) Supporting Document(s) C REACTIVE PROTEIN 15.6 mg/L 0.0-3.0 [facility] ID Date Data Source [id number] 03/03/2020 08:11:00 AM EST [facility] ADD ON TEST Name Value Range Interpretation Code Description Data [place] rce(s) Supporting Document(s) GLUCOSE 85 mg/dL 74-106 [facility] BLOOD UREA NITROGEN 11 mg/dL 7-18 [facility] ital CREATININE 0.88 mg/dL 0.6-1.0 [facility] SODIUM 135 mmol/L 136-145 L [facility] POTASSIUM 4.1 mmol/L 3.5-5.1 [facility] CHLORIDE 99 mmol/L 98-107 [facility] CO2 26 mmol/L 21-32 [facility] CALCIUM 8.8 mg/dL 8.5-10.1 [facility] ANION GAP 10.0 mmol/L 5-12 [facility] GLOMERULAR FILTRATION RATE 74 mL/min [facility] GFR IS CALCULATED IN mL/min/1.73m2 LISANDRA L FUNCTION: >90MILDLY DECREASED: 60-89MILDY TO MODERATELY DECREASED: 45-59 MODERATELY TO SEVERELY DECREASED: 30-44SEVERELY DECREASED: 15-29RENAL FAILURE: <15 AST 32 U/L 15-37 [facility] ALT 32 U/L 12-78 [facility] ALKALINE PHOSPHATASE 65 U/L 46-116 [facility] pital TOTAL BILIRUBIN 0.2 mg/dL 0.2-1.0 [facility] TOTAL PROTEIN 6.9 g/dl 6.4-8.2 [facility] ALBUMIN 3.9 gm/dL 3.4-5.0 [facility] ID Date Data Source [id number] 03/01/2020 05:46:00 PM EST [facility] Name Value Range Interpretation Code Description Data [place] rce(s) Supporting Document(s) CHOLESTEROL 193 mg/dL 0-200 [facility] TRIGLYCERIDES 86 mg/dL 0-150 [facility] LDL CHOLESTEROL 111 mg/dL 0-100 H [facility] HDL CHOLESTEROL 65 mg/dL 40-60 H [facility] CHOL/HDL RATIO 3.0 0.0-5.0 [facility] ID Date Data Source [id number] 02/29/2020 10:40:00 AM EST [facility] Name Value Range Interpretation Code Description Data [place] rce(s) Supporting Document(s) SARS coronavirus 2 RNA [facility] This lab was ordered by [facility] and reported by [facility]. ID Date Data Source [id number] 12/10/2019 11:15:00 AM EDT [place], [place] [address]PATIENT NAME: BRUNA LEE#: [id number] PHYSICIAN: PRERNA RIOS MD ADM. DATE: 12/05/19ACCOUNT #: [id number] DISCH. DATE:DISCHARGE SUMMARYIDENTIFICATION: A 34-year-old female with schizoaffective disorder,polysubstance dependence.CHIEF COMPLAINT: "I don't know why I am here."REASON FOR ADMISSION: Post- overdose.HISTORY OF PRESENT ILLNESS: The patient was interviewed in ICU after sheoverdosed. The patient was seen in [facility] for a regularconsultation, she could [...] behavior. We discussed with the patient w vielkahiro 2 weeks prior to this admission and [...] [place] The last time in our service with [...] ABUSE: None.SOCIAL HISTORY: The patient is from [place], did not finish high school.She was in [...] The patient was discharged with the medications Mlrugl82 mg p.o. daily, Neurontin 600 mg p.o. [...] be enrolled in outpatient chemical dependence in [place].MENTAL STATUS EXAMINATION: The patient is pleasant, cooperative. [...] Dictated: 12/10/2019 09:34:34Date Transcribed: 12/10/2019 10:15:05JV/PUSJob #: [id number]: 12/10/19 0934 Electronically SignedTRANS:12/10/19 1115 PRERNA RIOS MDTRANS BY:IATDAFUNMI SIGNED:12/10/19REPORT COPY TO: Name Value Range Interpretation Code Description Data [place] rce(s) Supporting Document(s) ID Date Data Source [id number] 12/10/2019 06:43:00 AM EDT [address] [address]YPIYNPA NAME: BRUNA LEE#: [id number] PHYSICIAN: PRERNA RIOS, [facility]ENTERCCOUNT #: [id number] ADM. DATE: 12/05/19PATIENT : 89 DISCH. DATE: [...] follow-upappointmentDischarge InformationDISCHARGE INFORMATION* Thank you for choosing [facility] and allowing us toserve you* Our Goal is to provide the highest quality of care.* This discharge information is to help you better understand your diagnosisand medication* Avoid taking mikx-zsi-caocyhf medicines unless approved by your physician.* Take your medications as prescribed. DO NOT stop any medications unlessapproved first* Weigh yourself daily. Report any gain of 5 lbs in a week* 24 Hour Crisis HOTLINE available: Call Reachout at [phone]* Chem. Dependency: Walk in Clinics [place] ([phone]) and [place] ([phone]) anytime Sunday thru Sunday 8 to 10am. [place] ([phone]) anytimeSunday thru Sunday 8 to 10am. [place] ([phone]) Sunday or Sunday from 8to 10am (Bring $30 to [facility]) SMOKIN G CESSATION* Smoking is dangerous to your health. It delays the healing process, andworks against your medications. Not smoking will improve your health* Our hospital participates with the Opt-to-Quit program. You will be contactedafter discharge by the [facility] Smoker's Quitline for support with tobaccocessation. You have the option once contacted to refuse this service.* You can also go online to www.Decision Lens. Free nicotine replacementsare available Attention* You should [...] rce(s) Supporting Document(s) ID Date Data Source [id number] 12/10/2019 02:15:00 AM EDT [address] [address]WPSLSQM NAME: BRUNA LEE Joe Orellana#: [id number] PHYSICIAN: PRERNA RIOS MD ADM. DATE: 12/05/19PROGRESS NOTE DATE: 12/09/19 .#: [id number] #: [id number] NOTEIDENTIFICATION: A 34-year-old female with mood disorder [...] Dictated: 12/09/2019 10:52:52Date Transcribed: 12/10/2019 01:15:28JV/RAVJob #: [id number]: 12/09/19 1052 Electronically SignedTRANS:12/10/19 0215 PRERNA RIOS MDTRANS BY:ADE SIGNED:12/10/19REPORT COPY TO: Name Value Range Interpretation Code Description Data [place] rce(s) Supporting Document(s) ID Date Data Source [id number] 12/08/2019 11:58:00 AM EDT [facility] Name Value Range Interpretation Code Description Data [place] rce(s) Supporting Document(s) URINE COLOR Yellow [facility] UAPR Clear [facility] UGLU Negative NEGATIVE [facility] URINE BILIRUBIN Negative NEGATIVE [facility] UKET Negative NEGATIVE [facility] USG 1.015 1.010-1.025 [facility] UBLO Negative NEGATIVE [facility] UpH 8.0 5.0-8.0 [facility] UPRO Negative Negative [facility] UUB 0.2 mg/dL 0.2-1.0 [facility] UNIT Negative Negative [facility] ULEU Negative Negative [facility] ID Date Data Source [id number] 12/09/2019 04:57:00 AM EDT [facility] [address] [address]FGWKYBF NAME: JESUSBRUNA Joe Orellana#: [id number] PHYSICIAN: PRERNA RIOS MD ADM. DATE: 12/05/19PROGRESS NOTE DATE: 12/08/19 .#: [id number] #: [id number] NOTEIDENTIFICATION: A 34-year-old female with mood disorder, [...] Dictated: 12/08/2019 10:30:51Date Transcribed: 12/09/2019 03:57:49JV/RAVJob #: [id number]: 12/08/19 1030 Electronically SignedTRANS:12/09/19 0457 PRERNA RISO MDTRANS BY:IATDAFUNMI SIGNED:12/09/19REPORT COPY TO: Name Value Range Interpretation Code Description Data [place] rce(s) Supporting Document(s) ID Date Data Source [id number] 12/06/2019 11:02:00 PM EDT [place], [place] [address]PATIENT NAME: BURNA LEE#: [id number] PHYSICIAN: PRERNA RIOS MD ADM. DATE: 12/05/19ACCOUNT #: [id number] .#: [id number] ASSESSMENTIDENTIFICATION: A 34-year-old female with schizoaffective disorder andpolysubstance dependence.CHIEF COMPLAINT: "I don't know why I am here."REASON FOR ADMISSION: Post-overdose.HISTORY OF PRESENT ILLNESS: According to the records and our interview, thepatient was brought to our service after being in ICU and the medical floorfor an overdose. The patient went to the outpatient clinic in [facility] and she passed out in consultation. [...] 2 weeks ago, that she was in [place] inpatient service for 5 days forthat.The patient [...] into detail.SOCIAL HISTORY: The patient is from [place]. Did not finish high school.She is in [...] Dictated: 12/06/2019 12:22:47Date Transcribed: 12/06/2019 22:02:14JV/GBJob #: [id number]: 12/06/19 1222 Electronically Signed TRANS:12/06/19 2302 PRERNA RIOS MDTRANS BY:ADE SIGNED:12/07/19REPORT COPY TO: Name Value Range Interpretation Code Description Data [place] rce(s) Supporting Document(s) ID Date Data Source [id number] 12/05/2019 02:12:00 AM EDT [facility] Name Value Range Interpretation Code Description Data [place] rce(s) Supporting Document(s) CKI 109 U/L 17-150 [facility] ID Date Data Source [id number] 12/05/2019 04:49:00 PM EDT [facility] [address] HEALTH HISTORY AND PHYSICALPATIENT NAME: BRUNA LEE MR#: [id number] PHYSICIAN: FELA VILLAROR: Diogenes Bueno MD DATE: 12/05/19 #: 3RDHistoryChief [...] and [facility]Past Medical/Surgical HistoryPast Medical/Surgical HistoryMedical [...] rce(s) Supporting Document(s) ID Date Data Source [id number] 12/05/2019 09:48:00 AM EDT [facility] [address] [address]JVRKFRPOQ SUMMARYPATIENT NAME: BRUNA LEE MR#: [id number] PHYSICIAN: BEHZAD HOGAN MDAUTHOR: Diogenes Bueno MD DATE: 12/04/19 RM#: [id number] DATE: 12/05/19 : 87Summary of HospitalizationReason for AdmissionOverdose on xanax, gabapentin, bath saltsHospital Gbwvfx53 yo F who was admitted for an [...] and the [facility]Diagnoses (Current Visit)Problem List1. Drug [...] taking the following medications:Gabapentin* (Neurontin*) 400 MG [id number] MILLIGRAM Orally DAILYContinue taking these medications:LEVETIRACETAM (LEVETIRACETA) 1,000 MG TABLET1,000 MILLIGRAM Orally TWICE DAILYQty = 60Amitriptyline HCl (Amitriptyline HCl) 100 MG [id number] MILLIGRAM Orally DAILYSUCRALFATE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 Darryl Turrin, Evonne Maldonado R.N. M.D.;CMP STAT 01:01 11/07/2019 Ack'd: 01:22 Meme 02:24 Meme Darryl Turrin, Evonne Darryl Maldonado R.N. M.D.;HCG Serum Qual STAT 01:11/07/2019 Ack'd: 01:22 Meme 02:24 Meme Darryl Turrin, Evonne Darryl Maldonado R.N. M.D.;CPK STAT 01:11/07/2019 Ack'd: 01:22 Meme 02:24 Meme Darryl Turrin, Evonnedo Darryl Maldonado RJayroNJayro Maldonado R.N. M.D.;Urine Drug Screen STAT 01:11/07/2019 Ack'd: 01:22 Meme 02:24 Meme Darryl Turrin, Evonne Darryl Maldonado RJayroNJayro Maldonado R.N. M.D.;Urinalysis (Clean STAT 01:11/07/2019 Ack'd: 01:22 Meme 02:24 Meme BlairCatch) Ariannerin, Evonne Maldonado RRandy Maldonado R.N. M.D.;DIAGNOSTIC STUDY ORDERSOrder Description Priority Entered Acknowledged InitialedMEDICATION/IV/DRIP/FLUID ORDERSOrder Description Priority Entered Acknowledged InitialedNS IV 1000 mL 01:01 11/07/2019 Ack'd: 01:22 Meme 02:26 Meme BlairBolus: : Bolus 1000 Ariannerin, Evonne Maldonado RRandy Maldonado R.N.mL (X1) M.D.;Zofran 4 mg IVP X 1 01:01 11/07/2019 Ack'd: 01:22 Meme 02:27 Meme Blairdose: 4 mg (NOW Turrin, Evonne Darryl Maldonado R.NJayro Maldonado R.N.x1) M.D.; 2 OrderSheet [facility] Emerg ency Department [address] [place] [address] Phone #: ext- [phone] 11/07/2019 00:19 Patient: BRUNA LEE Sex: F : 1985 Age: 34yGENERAL ORDERSOrder Description Priority Entered Acknowledged Initialed[Electronically signed by Mara Gonzalez R.N. (04:11/07/2019)][Electronically signed by Evonne Anne M.D. (05:23 11/07/2019)][Electronically locked by Mara Gonzalez R.N. (:11/07/2019)] Name Value Range Interpretation Code Description Data [place] rce(s) Supporting Document(s) ID Date Data Source [id number] 11/07/2019 12:19:00 AM EDT [facility] 1 Medication Reconciliation Report [facility] Emergency Department [address] [place] [address] Phone #: ext- [phone] 11/07/2019 00:19 Patient: [...] rce(s) Supporting Document(s) ID Date Data Source [id number] 11/07/2019 12:19:00 AM EDT [facility] 1 Medication Administration Record [facility] Emergency Department [address] [place] [address] Phone #: ext- [phone] 11/07/2019 00:19 Patient: BRUNA LEE Sex: F : 1985 Age: 34yWeight: 78.9 kgHeight/Length: 60 inBMI: 34ALLERGIES: Penicillins, Sulfa Antibiotics Date/Time Medication Administered Medication OrderedStart IV NS NS IV 1000 mL Bolus: : Bolus [id number] 11/07/2019 Dose: IV Fluids mL (X1)Meme Maldonado R.N. Rate: 999 mL/hr---- Dispensed: 1000 mL bagStop Site: #1 left wrist03:55 11/07/2019Mara Gonzalez RRandyGiven ZOFRAN [IVP] (ONDANSETRON HCL) Zofran 4 mg IVP X 1 dose: 4 mg02:22 11/07/2019 Dose: 4 mg IVP (NOW x1)Meme Maldonado R.N. Site: #1 left wrist Name Value Range Interpretation Code Description Data [place] rce(s) Supporting Document(s) ID Date Data Source [id number] 11/07/2019 12:19:00 AM EDT [facility] 1 General Instructions [facility] Emergency Department [address] [place] [address] Phone #: ext- [phone] 11/07/2019 00:19 [id number] Sex: F : 1985 Age: 34yMild nausea [...] to plan of care. 2 General Instructions [facility] Emergency Department [address] [place] [address] Phone #: ext- [phone] 11/07/2019 00:19 Patient: [...] Tiredness Inability to sleep 3 General Instructions [facility] Emergency Department [address] [place] [address] Phone #: ext- [phone] 11/07/2019 00:19 Patient: BRUNA LEE Sex: F [...] help you manage stress. 4 General Instructions [facility] Emergency Department [address] [place] [address] Phone #: ext- [phone] 11/07/2019 00:19 [id number] Sex: F : 1985 Age: 34yCall 911Call [...] relieved by rest and mild pain reliever [phone] [employer]. [address] [place] [address]. All rights reserved. This information is not intended as asubstitute for professional medical care. Always follow your healthcare professional's instructions. You have been given the following additional information: Anxiety Reaction(Electronically signed by Evonne Anne M.D. 11/07/2019 05:23) Name Value Range Interpretation Code Description Data [place] rce(s) Supporting Document(s) ID Date Data Source [id number] 11/07/2019 12:19:00 AM EDT [facility] 1 Clinical Report - Nurses [facility] Emergency Department [address] [place] [address] Phone #: ext- [phone] 11/07/2019 00:19 Patient: BRUNA LEE Sex: F : 1985 Age: 34yTRIAGEHistorian: EMS and patient.Triage time: 00:24 11/07/2019.Chief Complaint: NAUSEA and ("face swelling").Onset. (states that it has been going on all day.). ( states that she has been sleeping a lot and used Molly2 days ago. 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 --00:27 11/07/19 Meme [...] last month. 2 Clinical Report - Nurses [facility] Emergency Department [address] [place] [address] Phone #: ext- [phone] 11/07/2019 00:19 Patient: [...] hanging, cutting wrists and OD pills. Was IM 3 wks. Last admit 2017. Sees a [...] pump. Allergies 3 Clinical Report - Nurses [facility] Emergency Department [address] [place] [address] Phone #: [phone] bti- [phone] 11/07/2019 00:19 Patient: BRUNA LEE Sex: F [...] patient is calm and resting quietly. ( [place] provided. Reassurance given to pt. Lights dimmed. [...] Patient verbalized understanding. Written instructions provided in Russian. The patient was discharged by the physician. [...] rce(s) Supporting Document(s) ID Date Data Source [id number] 11/07/2019 12:19:00 AM EDT [facility] System 1 Clinical Report - Physicians/Mid Levels [facility] Emergency Department [address] [place] [address] Phone #: ext- [phone] 11/07/2019 00:19 Patient: [...] no Meth in over 2 weeks; woke [employer] w face swelling and nausea, no other Sx, no withdrawal, ROS otw neg.; pt known at [facility] for multiple ER visits for [...] Hernia Repair. 2 Clinical Report - Physicians/Mid [facility] Emergency Department [address] [place] [address] Phone #: ext- [phone] 11/07/2019 00:19 Patient: [...] (Reference) 3 Clinical Report - Physicians/Mid Levels [facility] Emergency Department [address] [place] [address] Phone #: ext- [phone] 11/07/2019 00:19 Patient: [...] Male GFR Interprentation 20-49 yrs >60 mL/min Abammv11-90 yrs >56 mL/min Normal 60- 69 yrs >49 mL/min Normal 70-79yrs>42 mL/min Normal 80 and above >35 mL/min Normal Female GFRInterpretation 20-39 yrs >60 mL/min Normal 40-49 yrs >58 mL/minNormal 50-59 yrs >51 mL/min Normal 60-69 yrs >45 mL/min Normal 4 Clinical Report - Physicians/Mid Levels [facility] Emergency Department [address] [place] [address] Phone #: ext- [phone] 11/07/2019 00:19 Patient: BRUNA LEE Sex: F : 1985 Age: 95p96-01 yrs >39 mL/min Normal 80 and above >32 mL/min NormalBeta-HCG, Qual Serum: (JENN: 11/07/2019 02:15) ( MsgRcvd 11/07/2019 03:20) Final results Test Result Flag Units (Reference) HCG SERUM QUAL NEGATIVE (NORMAL: NEGAT HCG SERUM QL REENTER NEGATIVE (NORMAL: NEGAT { KIT LOT # [id number] ){ KIT EXP [id number] ){ PROCEDURAL CONTROL VALID)CPK: (JENN: 11/07/2019 02:15) [...] PRESUMPTIVE POSITIVE CONFIRMATION WILL BE PERFORMED AT [facility].Urinalysis: (JENN: 11/07/2019 02:00) ( MogRcvd 11/07/2019 02:28) Final results Test Result Flag [...] Indicate 5 Clinical Report - Physicians/Mid Levels [facility] Department [address] [place] [address] Phone #: ext- [phone] 11/07/2019 00:19 Patient: BRUNA LEE Sex: F [...] thepharmacies. This report was requested by: Evonne Anne Reference #: [id number] Others' Prescriptions Patient Name: Bruna LeeBirth Date: 1985 Address: [address] [place], [place] [address]Sex: Female Rx Written Rx Dispensed Drug Quantity [...] 56 28 MoehJose J hopson MD Medicaid [facility] 03/06/2019 03/06/2019 buprenorphine-naloxone 8-2 mg sl film 56 28 RobertJose J hopson MD Medicaid [facility] 02/06/2019 02/06/2019 suboxone 12 mg-3 mg sl film 28 28 Moemiliana Jose J Bundy MD Medicaid [facility] 01/08/2019 01/08/2019 suboxone 12 mg-3 mg sl film 28 28 MoemilianaJose J MD Medicaid [facility] 12/10/2018 12/10/2018 suboxone 8 mg-2 mg sl film 56 28 Moehs Jose J Bundy MD Medicaid [facility] 11/12/2018 11/12/2018 suboxone 8 mg-2 mg sl film 56 28 MoemilianaJose J MD Medicaid [facility] * - Drugs marked with an asterisk are compound drugs. If the compound drug is made up of more than one controlled substance, then each controlled substance will be a separate row in the table. 6 Clinical Report - Physicians/Mid Levels [facility] Emergency Department [address] [place] [address] Phone #: ext- [phone] 11/07/2019 00:19 Patient: [...] Oral. 7 Clinical Report - Physicians/Mid Levels [facility] Department [address] [place] [address] Phone #: ext- [phone] 11/07/2019 00:19 Patient: [...] rce(s) Supporting Document(s) ID Date Data Source [id number] 11/07/2019 03:20:00 AM EDT Health System Name Value Range Interpretation Code Description Data [place] rce(s) Supporting Document(s) HCG SERUM QUAL NEGATIVE NORMAL: NEGATIVE [facility] HCG SERUM QL REENTER NEGATIVE NORMAL: NEGATIVE [facility] { KIT LOT # [id number] ){ KIT EXP DATE 12-08-20 ){ PROCEDURAL CONTROL VALID ) ID Date Data Source [id number] 11/07/2019 03:15:00 AM EDT [facility] System Name Value Range Interpretation Code Description Data [place] rce(s) Supporting Document(s) Creatine kinase [Enzymatic activity/volume] in Serum or Plasma 3 13 U/L 30 - 170 H [facility] ID Date Data Source [id number] 11/07/2019 03:14:00 AM EDT [facility] System Name Value Range Interpretation Code Description Data [place] rce(s) Supporting Document(s) COMPREHENSIVE METABOLIC PANEL [facility] COMPREHENSIVE METABOLIC PANEL Sodium [Moles/volume] in Serum or Plasma 140 mEq/L 134 - 153 [facility] Potassium [Moles/volume] in Serum or Plasma 3.8 mEq/L 3.6 - 5.0 [facility] Chloride [Moles/volume] in Serum or Plasma 100 mEq/L 98 - 107 [facility] Carbon dioxide, total [Moles/volume] in Serum or Plasma 30 MEQ/L 22 - 30 [facility] Glucose [Mass/volume] in Serum or Plasma 98 MG/DL 65 - 110 [facility] BUN 14 MG/DL 7 - [facility] Creatinine [Mass/volume] in Serum or Plasma 0.7 MG/DL 0.7 - 1.5 [facility] BUN/CREAT 20 8 - 27 [facility] Protein [Mass/volume] in Serum or Plasma 5.9 G/DL 6.3 - 8.2 L [facility] Albumin [Mass/volume] in Serum or Plasma 3.6 G/DL 3.9 - 5.0 L [facility] Globulin [Mass/volume] in Serum by calculation 2.3 GM/DL 2.4 - 3.2 L [facility] A/G RATIO 1.6 0.8 - 2.0 [facility] Calcium [Mass/volume] in Serum or Plasma 9.2 MG/DL 8.4 - 10.2 [facility] Bilirubin.total [Mass/volume] in Serum or Plasma <0.7 MG/DL 0.2 - 1.3 [facility] Alkaline phosphatase [Enzymatic activity/volume] in Serum or Plasma 62 U/L 38 - 126 [facility] Aspartate aminotransferase [Enzymatic activity/volume] in Serum or Plasma 302 U/L 5 - 40 H [facility] Alanine aminotransferase [Enzymatic activity/volume] in Seru m or Plasma 125 U/L 7 - 56 H [facility] Anion gap 3 in Serum or Plasma 10.0 mmol/L 8.0 - 16.0 [facility] AGE 34 yrs [facility] NON-AA GFR >60 mL/min [facility] ital AFR AMER GFR >60 mL/min [facility] spital Male GFR In [...] >32 mL/min Normal ID Date Data Source [id number] 11/07/2019 02:27:00 AM EDT Health System Name Value Range Interpretation Code Description Data [place] rce(s) Supporting Document(s) CBC W/AUTOMATED DIFF [facility] COMPLETE BLOOD COUNT Leukocytes [#/volume] in Blood by Automated count 8.3 10^3/uL 4.2 - 1 1.0 [facility] Erythrocytes [#/volume] in Blood by Automated count 3.87 10^6/uL 4. 20 - 5.40 L [facility] Hemoglobin [Mass/volume] in Blood 11.6 g/dL 12.0 - 16.0 L [facility] Hematocrit [Volume Fraction] of Blood by Automated count 36.0 % 3 7.0 - 47.0 L [facility] Erythrocyte mean corpuscular volume [Entitic volume] by Auto mated count 93.0 fL 81.0 - 101 [facility] Erythrocyte mean corpuscular hemoglobin [Entitic mass] by Automated count 30.0 pg 27.0 - 34.0 [facility] Erythrocyte mean corpuscular hemoglobin concentration [Mass/volume] by Automated count 32.2 g/dL 31.0 - 36.0 [facility] Erythrocyte distribution width [Ratio] by Automated count 13.3 % 11.5 - 14.5 [facility] Platelets [#/volume] in Blood by Automated count 271 10^3/uL 150 - 45 0 [facility] Platelet mean volume [Entitic volume] in Blood by Automated count 9.5 fL 7.4 - 10.4 [facility] Neutrophils/100 leukocytes in Blood by Automated count 82.6 % 37. 0 - 80.0 H [facility] Lymphocytes/100 leukocytes in Blood by Manual count 14.3 % 25.0 - 40.0 L [facility] Monocytes/100 leukocytes in Blood by Automated count 1.6 % 3.0 - 8.0 L [facility] Eosinophils/100 leukocytes in Blood by Automated count 0.8 % 0.0 - 7.0 [facility] Basophils/100 leukocytes in Blood by Automated count 0.2 % 0.0 - 2.5 [facility] %IG 0.5 % 0.0 - 0.0 [facility] %NRBC 0.0 % 0.0 - 0.0 [facility] al Neutrophils [#/volume] in Blood by Automated count 6.85 10^3/uL 2.00 - 6.90 Health System Lymphocytes [#/volume] in Blood by Automated count 1.19 10^3/uL 0.60 - 3.40 [facility] Monocytes [#/volume] in Blood by Automated count 0.13 10^3/uL 0.00 - 0.90 [facility] Eosinophils [#/volume] in Blood by Automated count 0.07 10^3/uL 0.00 - 0.70 [facility] Basophils [#/volume] in Blood by Automated count 0.02 10^3/uL 0.00 - 0.20 [facility] #IG 0.04 10^3/uL 0.00 - 0.10 [facility] #NRBC 0.00 10^3/uL 0.00 - 0.00 [facility] ospital MANUAL DIFF NOT INDICATED [facility] RBC MORPH NOT INDICATED [facility] ID Date Data Source [id number] 11/07/2019 03:14:00 AM EDT [facility] System Name Value Range Interpretation Code Description Data [place] rce(s) Supporting Document(s) DRUG SCREEN URINE [facility] URINE DRUG SCREEN Amphetamine [Presence] in Urine by Screen method PRESUMP POS LISANDRA L: NEGATIVE [facility] BARBITURATES NEGATIVE NORMAL: NEGATIVE [facility] BENZO NEGATIVE NORMAL: NEGATIVE [facility] COCAINE NEGATIVE NORMAL: NEGATIVE [facility] Tetrahydrocannabinol [Presence] in Urine NEGATIVE NORMAL: NEGATIVE [facility] OPIATES NEGATIVE NORMAL: NEGATIVE [facility] Phencyclidine [Presence] in Urine by Screen method NEGATIVE NOR MAL: NEGATIVE [facility] \\BLDo\\URINE DRUG SCR EEN INTERPRETATION\\BLDx\\ THE CUTOFFF LEVELS FOR DETECTION ARE FOLLOWS: AMPHETAMINES 1000 ng/ml BARBITUARATES 200 ng/ml BENZODIAZEPINES 100 ng/ml THC 50 ng/ml PHENCYCLIDINE 25 ng/ml OPIATES 300 ng/ml COCAINE 300 ng/ml ALL POSITIVES ARE CONSIDERED PRESUMPTIVE POSITIVE CONFIRMATION WILL BE PERFORMED AT PHYSICIAN REQUEST. ID Date Data Source [id number] 11/07/2019 02:27:00 AM EDT [facility] System Name Value Range Interpretation Code Description Data [place] rce(s) Supporting Document(s) URINALYSIS [facility] Hos[facility] james URINALYSIS SOURCE R [facility] COLOR yellow NORMAL: Yellow [facility] CLARITY clear NORMAL: Clear [facility] Specific gravity of Urine by Test strip 1.020 1.001 - 1.030 [facility] System pH 6 5 - 9 [facility] Glucose [Mass/volume] in Urine by Test strip NORM NORMAL: Negat [facility] Bilirubin.total [Presence] in Urine by Test strip NEG NORMAL: Negative [facility] Ketones [Presence] in Urine by Test strip NEG NORMAL: Negative [facility] Protein [Mass/volume] in Urine by Test strip NEG NORMAL: Negat [facility] Nitrite [Presence] in Urine by Test strip NEG NORMAL: Negative [facility] BLOOD NEG NORMAL: Negative [facility] Leukocyte esterase [Presence] in Urine by Test strip NEG LISANDRA L: Negative [facility] Urobilinogen [Mass/volume] in Urine by Test strip 1 less kenna n 1.0 mg/dL [facility] MICROSCOPIC Not Indicate [facility] ID Date Data Source [id number] 10/30/2019 10:27:00 AM EDT [facility] Name Value Range Interpretation Code Description Data [place] rce(s) Supporting Document(s) BG FASTING 132 mg/dL 70-100 H [facility] TSH 0.526 microintl units/mL 0.358-3.740 N [facility] ID Date Data Source [id number] 10/30/2019 10:27:00 AM EDT [facility] Name Value Range Interpretation Code Description Data [place] rce(s) Supporting Document(s) HCT 37.6 % 36.0-47.0 N [facility] HGB 11.8 g/dL 12.0-15.5 L [facility] MCH 31.4 G/DL pg 32.0-36.5 L [facility] MCHC 29.9 PG % 27.0-33.0 N [facility] PLATELETS 209 10 10*3/mm3 150-450 N [facility] RBC 3.94 10 10*6/mm3 4.00-5.40 L [facility] RDW 12.6 % 11.5-14.5 N [facility] WBC TOTAL 4.5 4.0-10.0 N [facility] ID Date Data Source [id number] 10/13/2019 03:25:00 PM EDT [facility] Name Value Range Interpretation Code Description Data [place] rce(s) Supporting Document(s) HCT 40.7 % 36.0-47.0 N [facility] HGB 13.3 g/dL 12.0-15.5 N [facility] MCH 32.7 G/DL pg 32.0-36.5 N [facility] MCHC 30.4 PG % 27.0-33.0 N [facility] PLATELETS 288 10 10*3/mm3 150-450 N [facility] RBC 4.37 10 10*6/mm3 4.00-5.40 N [facility] RDW 12.4 % 11.5-14.5 N [facility] WBC TOTAL 8.7 4.0-10.0 N [facility] ID Date Data Source [id number] 10/09/2019 02:09:00 AM EDT [facility] System 1 OrderSheet [facility] Emergency Department [address] [place] [address] Phone #: ext- [phone] 10/09/2019 02:08 Patient: BRUNA LEE Sex: F [...] 03:39 Meme BlairPO X1 dose: 800 Evonne Anne R.N., R.N.mg (NOW x1) Jeremie;GENERAL ORDERSOrder Description Priority Entered Acknowledged Initialed[Electronically signed by Evonne Anne M.D. (03:51 10/09/2019)][Electronically signed by Meme Damon R.N. (07:29 10/09/2019)][Electronically locked by Meme Damon R.N. (07:10/09/2019)] Name Value Range Interpretation Code Description Data [place] rce(s) Supporting Document(s) ID Date Data Source [id number] 10/09/2019 02:09:00 AM EDT [facility] 1 Medication Reconciliation Report [facility] Emergency Department [address] [place] [address] Phone #: ext- [phone] 10/09/2019 02:08 Patient: [...] rce(s) Supporting Document(s) ID Date Data Source [id number] 10/09/2019 02:09:00 AM EDT [facility] 1 Medication Administration Record [facility] Emergency Department [address] [place] [address] Phone #: ext- [phone] 10/09/2019 02:08 Patient: BRUNA LEE Sex: F : 1985 Age: 34yWeight: 81.1 kgHeight/Length: 60 inBMI: 34.9ALLERGIES: Penicillins, Sulfa Antibiotics Date/Time Medication Administered Medication OrderedGiven IBUPROFEN [PO] Ibuprofen 800 mg PO X1 dose: 17804:39 10/09/2019 Dose: 800 mg Tablets PO mg (NOW x1)Meme Maldonado R.N. Name Value Range Interpretation Code Description Data [place] rce(s) Supporting Document(s) ID Date Data Source [id number] 10/09/2019 02:09:00 AM EDT [facility] 1 General Instructions [facility] Emergency Department [address] [place] [address] Phone #: ext [phone] 10/09/2019 02:08 Patient: BRUNA LEE Sex: F [...] INFORMATIONViral Pharyngitis (Sore Throat) 2 General Instructions [facility] Emergency Department [address] [place] [address] Phone #: ext- [phone] 10/09/2019 02:08 Patient: [...] glass of warm water. 3 General Instructions [facility] Emergency Department [address] [place] [address] Phone #: ext- [phone] 10/09/2019 02:08 Patient: [...] breathing or noisy breathing 4 General Instructions [facility] Emergency Department [address] [place] [address] Phone #: ext- [phone] 10/09/2019 02:08 Patient: BRUNA LEE Sex: F : 1985 Age: 34y Muffled voice New rash Other symptoms are getting worse [id number] [place] [address]. All rights reserved. This information is not intended as asubstitute for professional medical care. Always follow your healthcare professional's instructions. You have been given the following additional information: Pharyngitis, Viral(Electronically signed by Evonne Anne M.D. 10/09/2019 03:51) Name Value Range Interpretation Code Description Data [place] rce(s) Supporting Document(s) ID Date Data Source [id number] 10/09/2019 02:09:00 AM EDT [facility] 1 Clinical Report - Nurses [facility] Emergency Department [address] [place] [address] Phone #: ext- [phone] 10/09/2019 02:08 Patient: BRUNA LEE Sex: F : 1985 Age: 34yTRIAGEHistorian: EMS and patient.Triage time: 02:08 10/09/2019.Chief Complaint: SORE THROAT.This started just prior to arrival. 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 (arthritis kind).EMS Treatment SPORTS BOOK WRITER:See EMS report.SEPSIS SCREEN: SIRS Screen: heart rate greater than 90. Sepsis Screen negative. No suspected orconfirmed signs of infection present. --02:14 10/09/19 Meme Maldonado R.N.02:11 10/09/19. BP: 130/86. MAP: 100. HR: 105. RR: 18. O2 saturation: 100%. Temp: 98.5 F. Pain levelnow: 12/05. --02:14 10/09/19 Meme Maldonado R.N.Treatment SPORTS BOOK WRITER:(Seen at [facility] for this issue within the [...] Maldonado R.N.AllergiesPenicillins.(hives) 2 Clinical Report - Nurses [facility] Emergency Department [address] [place] [address] Phone #: ext- [phone] 10/09/2019 02:08 Patient: [...] Dental decay. 3 Clinical Report - Nurses [facility] Emergency Department [address] [place] [address] Phone #: ext- [phone] 10/09/2019 02:08 Patient: BRUNA LEE Sex: F [...] Patient verbalized understanding. Written instructions provided in Russian. The patient was discharged by the physician. [...] rce(s) Supporting Document(s) ID Date Data Source [id number] 10/09/2019 02:09:00 AM EDT [facility] System 1 Clinical Report - Physicians/Mid Levels [facility] Emergency Department [address] [place] [address] Phone #: ext- [phone] 10/09/2019 02:08 Patient: [...] (per EMS, pt is well known to [facility] ER for multiple ER visits for multiple somatic and psychiatric complaints; tonight, she complains of sore throat, hoarse voice, bugs on her skin, etc.; pt has therapist in [place]). Similar symptoms previously. Patient has had similar [...] Hernia Repair. Medications: 2 Clinical Report - Physicians/[facility] Emergency Department [address] [place] [address] Phone #: ext- [phone] 10/09/2019 02:08 Patient: [...] PROCEDURAL CONTROL VALID ){ KIT LOT # [id number] ){ KIT EXP DATE [id number] )The 3 Clinical Report - Physicians/Mid Levels [facility] Emergency Department [address] [place] [address] Phone #: ext- [phone] 10/09/2019 02:08 Patient: [...] thepharmacies. This report was requested by: Evonne Anne Reference #: [id number] Others' Prescriptions Patient Name: Bruna LeeBirth Date: 1985 Address: [address] [place] [id number]: Female Rx Written Rx Dispensed Drug Quantity [...] film 56 28 MoehJose J hopson MD [facility] 05/01/2019 05/01/2019 buprenorphine-naloxone [...] 28 28 MoJose J hopson MD Medicaid [facility] 01/08/2019 01/08/2019 suboxone 12 mg-3 mg sl film 28 28 Jose J Mao MD Medicaid [facility] 12/10/2018 12/10/2018 suboxone 8 mg-2 mg sl film 56 28 TxJose J dumont MD Medicaid [facility] 4 Clinical Report - Physicians/[facility] Emergency Department [address] [place] [address] Phone #: [phone]- [phone] 10/09/2019 02:08 Patient: BRUNA LEE Sex: F : 1985 Age: 34y 11/12/2018 11/12/2018 suboxone 8 mg-2 mg sl film 56 28 Jose J Mao MD Medicaid [facility] 10/15/2018 10/15/2018 suboxone 8 mg-2 mg sl film 56 28 [facility] [...] unknown*. 5 Clinical Report - Physicians/[facility] Emergency Department [address] [place] [address] Phone #: ext- [phone] 10/09/2019 02:08 Patient: [...] rce(s) Supporting Document(s) ID Date Data Source [id number] 10/09/2019 03:02:00 AM EDT Health System Name Value Range Interpretation Code Description Data [facility] rce(s) Supporting Document(s) RAPID STREP NEGATIVE NORMAL: NEGATIVE [facility] RAPID STREP REENTER NEGATIVE NORMAL: NEGATIVE [facility] { PROCEDURAL CONTROL VALID ){ KIT LOT # [id number] ){ KIT EXP DATE [id number] )The Strep [...] basis for treatment. ID Date Data Source [id number] 09/22/2019 02:34:28 PM EDT [facility] Measurements & CalculationsHeight: 61 inches [...] or urgent care clinic? Yes - [facility] Have you seen another healthcare provider? Yes - [facility] Have you seen a dentist? NoIntake [...] this is different. Sees Mental health across [facility] for her mental health issues (schizophrenia) and feels that this is going well.HPI performed by: Francesco Ritchie MD, September 22, 2019 2:52 PMTransitions of Care InboundProblem ReviewProblem List was reviewed and/or updated during this visit.Medication Reconciliation & ReviewMedication List was reviewed and/or updated during this visit, including review of any punq-pjn-xjtizfw medications, herbal therapies, and/or supplements.Allergy ReviewAllergy List [...] Plan Problems:Added: Hematemesis - cause unknown (ICD-578.0) (IMR18-K31.0) Assessment: Instructions: Currently asymptomatic but worrisome enough to warrant further workup.Avoid NSAIDs and refer to GI.Return to ER if this occurs again.Assessed:Peripheral neuropathy (ICD-356.9) (KPJ01-R41.9) Assessment: Instructions: I am not sure where [...] (Critical)Orders:Adult - Ofc Vst, EST, Level III [CPT-59881] Gastroenterology Consult [CPT-90212] Medications:GABAPENTIN 400 MG ORAL CAPSULE (GABAPENTIN) take one tablet by mouth three times daily as needed #90[Capsule] x 0 Route:ORAL Entered and Authorized by: Francesco Ritchie MD Method used: Electronically to [facility] (retail) [address] [place] [address] Note to Pharmacy: Route: ORAL; Indications: PERIPHERAL NEUROPATHY;BILATERAL CARPAL TUNNEL SYNDROME RxID: [id number] 1000 MG ORAL TABLET (LEVET[place]ACETAM) 1 pill po bid #60[Tablet] x 0 Route:ORAL Entered and Authorized by: Francesco Ritchie MD Method used: Electronically to [facility] (retail) [address] [place] [address] Note to Pharmacy: Route: ORAL; RxID: [id number] SUCCINATE 50 MG ORAL TABLET (SUMATRIPTAN SUCCINATE) take one tab po at the onset of headache. may repeat dose x one if no releif after two hours. #15[Tablet] x 0 Entered and Authorized by: Francesco Ritchie MD Method used: Electronically to [facility] (retail) [address] [place] [address] RxID: [id number] OMEPRAZOLE 20 MG ORAL TABLET DELAYED RELEASE (OMEPRAZOLE) One tablet by mouth every day #30[Tablet] x 2 Route:ORAL Entered and Authorized by: Francesco Ritchie MD Method used: Electronically to [facility] (retail) [address] [place] [address] Note to Pharmacy: Route: ORAL; RxID: [id number] DOXYCYCLINE MONOHYDRATE 100 MG ORAL TABLET (DOXYCYCLINE MONOHYDRATE) take one tablet by mouth twice daily x 5 days #10[Tablet] x 0 Route:ORAL Entered by: Demetria Elliott MA Authorized by: Mavis Lester SALES REPRESENTATIVES Method used: Electronically to [facility] (retail) [facility] [place] [address] RxID: [id number] signed by Francesco Ritchie MD on 09/22/2019 at 5:42 PM Name Value Range Interpretation Code Description Data [place] rce(s) Supporting Document(s) ID Date Data Source [id number] 09/10/2019 10:45:00 PM EDT [facility] Name Value Range Interpretation Code Description Data [place] rce(s) Supporting Document(s) BG FASTING 96 mg/dL 70-100 N [facility] Health ID Date Data Source [id number] 09/10/2019 10:45:00 PM EDT [facility] Name Value Range Interpretation Code Description Data [place] rce(s) Supporting Document(s) HCT 37.4 % 36.0-47.0 N [facility] HGB 12.1 g/dL 12.0-15.5 [facility] MCH 32.4 G/DL pg 32.0-36.5 N [facility] MCHC 30.2 PG % 27.0-33.0 [facility] PLATELETS 244 10 10*3/mm3 150-450 N [facility] RBC 4.01 10 10*6/mm3 4.00-5.40 [facility] RDW 12.8 % 11.5-14.5 N [facility] WBC TOTAL 4.9 4.0-10.0 [facility] ID Date Data Source [id number] 05/20/2019 11:42:55 AM EDT [facility] Measurements & CalculationsHeight: 61 inches [...] you seen another healthcare provider? Yes - [facility] Have you seen a dentist? NoRate [...] during this visit, including review of any urym-nfj-lsgvpyc medications, herbal therapies, and/or supplements.Allergy ReviewAllergy List [...] Problems:Added: Phlebitis and thrombophlebitis of unspecified site (PUQ88-H51.9): right AC and right tibia Assessment: Instructions: May continue warm compresses 3-4 times daily as needed. Please try to keep extremities elevated. We have sent a prescription to your pharmacy today. Please take medication as prescribed. Please report any major side effects.Phlebitis and thrombophlebitis of unspecified site (IMR81-B57.9): right AC and right tibia Assessment: right foot and right forearmAssessed:Tobacco use (ICD-305.1) (JZW94-N31.0) Assessment: Instructions: Please continue to try to quit smoking.Health Screening (ICD-V70.0) (VXS89-R87.9) Assessment: Instructions: Fasting labs ordered for you today. Please return prior to your next visit to have labs drawn. Please fast for 8-10 hours prior.Substance abuse (ICD-305.90) (DVU84-X18.10) Assessment: Instructions: Please try to avoid the [...] (Critical)BACTRIM (Critical)* SULFA ANTIBIOTICS (Critical)Orders:COMP METABOLIC PANEL [CPT-87657] CBC W/DIFF [CPT- 05133] HgBA1c [CPT-28085] LIPID PANEL [CPT-52022] TSH [CPT-15810] T-4 free [CPT- 04528] Vitamin D 250H Unspecified [CPT-44195] URINALYSIS [CPT-46782] VITAMIN B- 12 [CPT-13313] Folate (Folic Acid Serum) [CPT-20415] IRON [CPT-76132] Adult - Ofc Vst, EST, Level III [CPT-92929] Follow-Up Return to clinic: 2-3 weeks for follow up Additional Follow-Up: If symptoms worsen, please return to clinic or the ERClinical Visit Summary CompletedMedications:DOXYCYCLINE MONOHYDRATE 100 MG ORAL TABLET (DOXYCYCLINE MONOHYDRATE) take one tablet by mouth twice daily x 5 days #10[Tablet] x 0 Route:ORAL Entered and Authorized by: Mavis DIEGO Method used: Electronically to [facility] (retail) [address] [place] [address] Note to Pharmacy: Route: ORAL; Indications: PHLEBITIS AND THROMBOPHLEBITIS OF UNSPECIFIED SITE RxID: [id number] signed by Mavis DIEGO on 05/24/2019 at 11:37 PM ____ Name Value Range Interpretation Code Description Data [place] rce(s) Supporting Document(s) Procedure Social History Code Duration Value Status Description Data Source(s ) Smoking 03/30/2020 12:00:00 AM EST Current Smoker completed Curre nt Smoker eCW1 ([facility]) Smoking 03/30/2020 12:00:00 AM EST Current Smoker completed Curre nt Smoker eCW1 ([facility]) Smoking 03/30/2020 12:00:00 AM EST Current Smoker completed Curre nt Smoker eCW1 ([facility]) Smoking 03/30/2020 12:00:00 AM EST Current Smoker completed Curre nt Smoker eCW1 ([facility]) Smoking 03/30/2020 12:00:00 AM EST Current Smoker completed Curre nt Smoker eCW1 ([facility]ly [facility]) Smoking 03/30/2020 12:00:00 AM EST Current Smoker completed Curre nt Smoker eCW1 ([facility]) Smoking 03/30/2020 12:00:00 AM EST Current Smoker completed Curre nt Smoker eCW1 ([facility]) Smoking 03/01/2020 12:00:00 AM EST Current Smoker completed Curre nt Smoker eCW1 ([facility]) Smoking 03/01/2020 12:00:00 AM EST Current Smoker completed Curre nt Smoker eCW1 ([facility]) Smoking 03/01/2020 12:00:00 AM EST Current Smoker completed Curre nt Smoker eCW1 ([facility]) Smoking 02/18/2020 12:00:00 AM EST Current Smoker completed Curre nt Smoker eCW1 ([facility]) Smoking 12/24/2019 12:00:00 AM EDT Current Smoker completed Curre nt Smoker eCW1 ([facility]) Smoking 12/24/2019 12:00:00 AM EDT Current Smoker completed Curre nt Smoker eCW1 ([facility]) Smoking 12/24/2019 12:00:00 AM EDT Current Smoker completed Curre nt Smoker eCW1 ([facility]) Smoking 12/24/2019 12:00:00 AM EDT Current Smoker completed Curre nt Smoker eCW1 (Formerly [facility]) Smoking 12/24/2019 12:00:00 AM EDT Current Smoker completed Curre nt Smoker eCW1 ([facility]) Smoking 12/24/2019 12:00:00 AM EDT Current Smoker completed Curre nt Smoker eCW1 ([facility]ly [facility]) Smoking 12/24/2019 12:00:00 AM EDT Current Smoker completed Curre nt Smoker eCW1 ([facility]) Smoking 10/31/2019 12:00:00 AM EDT Current Smoker completed Curre nt Smoker eCW1 ([facility]ly [facility]) Smoking 10/31/2019 12:00:00 AM EDT Current Smoker completed Curre nt Smoker eCW1 ([facility]) Smoking 10/31/2019 12:00:00 AM EDT Current Smoker completed Curre nt Smoker eCW1 ([facility]ly [facility]) Vital Signs ID Date Data Source UNK Name Value Range Interpretation Code Description Data Source(s) Oxygen saturation in Arterial blood by Pulse oximetry 98 % 98 % eCW1 ([facility]) Respiratory rate 18 /min 18 /min eCW1 ([facility]) Heart rate 119 /min 119 /min eCW1 ([facility]) Body mass index (BMI) [Ratio] 35.74 kg/m2 35.74 kg/m2 eCW1 ([facility]) Body weight 183.0 [lb_av] 183.0 [lb_av] eCW1 ([facility]) Body height 60.0 [in_i] 60.0 [in_i] eCW1 ([facility]) Oxygen saturation in Arterial blood by Pulse oximetry 99 % 99 % eCW1 ([facility]) Respiratory rate 18 /min 18 /min eCW1 ([facility]) Heart rate 93 /min 93 /min eCW1 ([facility]) Body mass index (BMI) [Ratio] 35.27 kg/m2 35.27 kg/m2 eCW1 ([facility]) Body weight 180.6 [lb_av] 180.6 [lb_av] eCW1 ([facility]) Body height 60 [in_i] 60 [in_i] eCW1 ([facility]) Oxygen saturation in Arterial blood by Pulse oximetry 97 % 97 % eCW1 ([facility]) Respiratory rate 18 /min 18 /min eCW1 ([facility]) Heart rate 89 /min 89 /min eCW1 ([facility]) Body mass index (BMI) [Ratio] 36.48 kg/m2 36.48 kg/m2 eCW1 ([facility]) Body weight 186.8 [lb_av] 186.8 [lb_av] eCW1 ([facility]) Body height 60 [in_i] 60 [in_i] eCW1 ([facility]) Body height 60 [in_i] 60 [in_i] eCW1 ([facility]) Oxygen saturation in Arterial blood by Pulse oximetry 98 % 98 % eCW1 ([facility]) Respiratory rate 18 /min 18 /min eCW1 ([facility]) Heart rate 86 /min 86 /min eCW1 ([facility]) Body temperature 98.0 [degF] 98.0 [degF] eCW1 ( [facility]) Body mass index (BMI) [Ratio] 32.10 kg/m2 32.10 kg/m2 eCW1 ([facility]) Body weight 164.4 [lb_av] 164.4 [lb_av] eCW1 ([facility]) Oxygen saturation in Arterial blood by Pulse oximetry 99 % 99 % eCW1 ([facility]) Respiratory rate 18 /min 18 /min eCW1 ([facility]) Heart rate 100 /min 100 /min eCW1 ([facility]) Body temperature 98.7 [degF] 98.7 [degF] eCW1 ( [facility] [facility]) Body mass index (BMI) [Ratio] 30.70 kg/m2 30.70 kg/m2 eCW1 (Formerly [facility]) Body weight 157.2 [lb_av] 157.2 [lb_av] eCW1 ([facility]) Body height 60 [in_i] 60 [in_i] eCW1 ([facility]) ID Date Data Source [id number] 12/26/2019 01:56:00 PM EDT [facility] Name Value Range Interpretation Code Description Data Source(s) WEIGHT 72.3 kilos 72.3 kilos [facility] HEIGHT 152.4 centimeters 152.4 centimeters [facility] WEIGHT 75 kilos 75 kilos [facility] HEIGHT 152.4 centimeters 152.4 centimeters [facility] ID Date Data Source [id number] 12/10/2019 06:07:00 AM EDT [facility] Name Value Range Interpretation Code Description Data Source(s) WEIGHT 68 kilos 68 kilos [facility] HEIGHT 152.4 centimeters 152.4 centimeters [facility] WEIGHT 68.4 kilos 68.4 kilos [facility] HEIGHT 152.4 centimeters 152.4 centimeters [facility] ID Date Data Source [id number] 12/08/2019 01:43:00 PM EDT [facility] Name Value Range Interpretation Code Description Data Source(s) WEIGHT 75 kilos 75 kilos [facility] HEIGHT 152.4 centimeters 152.4 centimeters [facility] ID Date Data Source [id number] 12/08/2019 01:43:00 PM EDT [facility] Name Value Range Interpretation Code Description Data Source(s) WEIGHT 74 kilos 74 kilos [facility] HEIGHT 160.02 centimeters 160.02 centimeter [facility] Patient Treatment Plan of Care Planned Activity Planned Date Details Description Data Source (s) Doxepin Hydrochloride 25 MG Oral Capsule 03/09/2020 12:00:00 AM EST eCW1 (Formerly [facility]amed [facility]) Doxepin Hydrochloride 25 MG Oral Capsule 03/09/2020 12:00:00 AM EST eCW1 (Formerly [facility]amed [facility]) Doxepin Hydrochloride 25 MG Oral Capsule 03/09/2020 12:00:00 AM EST eCW1 (Formerly [facility]) Clonidine Hydrochloride 0.2 MG Oral Tablet 12/24/2019 12:00:00 AM E DT eCW1 (Formerly [facility]) Clonidine Hydrochloride 0.2 MG Oral Tablet 12/24/2019 12:00:00 AM E DT eCW1 (Formerly [facility]) Clonidine Hydrochloride 0.2 MG Oral Tablet 12/24/2019 12:00:00 AM E DT eCW1 (Formerly [facility]amed [facility]) Clonidine Hydrochloride 0.2 MG Oral Tablet 12/24/2019 12:00:00 AM E DT eCW1 (Formerly [facility]amed [facility]) Clonidine Hydrochloride 0.2 MG Oral Tablet 12/24/2019 12:00:00 AM E DT eCW1 (Formerly [facility]) Clonidine Hydrochloride 0.2 MG Oral Tablet 12/24/2019 12:00:00 AM E DT eCW1 (Formerly [facility]) Clonidine Hydrochloride 0.2 MG Oral Tablet 12/24/2019 12:00:00 AM E DT eCW1 (Formerly [facility]) lisdexamfetamine dimesylate 50 MG Oral Capsule [Vyvans e] 11/04/2019 12:00:00 AM EDT eCW1 (Former[facility]) Clonazepam 0.5 MG Oral Tablet 11/04/2019 12:00:00 AM EDT eCW1 (Formerly [facility]) Citalopram 20 MG Oral Tablet [Celexa] 11/04/2019 12:00:00 AM EDT eCW1 (Formerly [facility]) Risperidone 3 MG Oral Tablet [Risperdal] 07/07/2019 12:00:00 AM EDT eCW1 (Formerly [facility]amed [facility]) Risperidone 3 MG Oral Tablet [Risperdal] 07/07/2019 12:00:00 AM EDT eCW1 (Formerly [facility]amed [facility]) Risperidone 2 MG Oral Tablet [Risperdal] 07/07/2019 12:00:00 AM EDT eCW1 (Formerly [facility]) Risperidone 2 MG Oral Tablet [Risperdal] 07/07/2019 12:00:00 AM EDT eCW1 (Formerly [facility]amed [facility]) Risperidone 3 MG Oral Tablet [Risperdal] 07/07/2019 12:00:00 AM EDT eCW1 (Formerly [facility]amed [facility])
[2020-04-20] MEDS ORDERED: cloNIDine 0.2 MG TAB PO ONE (17:00)
[2020-04-20 17:05] VITALS: BP 132/94
--- OUTSIDE RECORDS SUMMARY | 2020-04-20 17:44 | CCD ---
Author Author [facility] Organization [facility] Address Unknown Phone Unavailable Care Team Providers Care Ruling Technician Name Role Phone Kori FLORES Unavailable Unavailable [...] Jeremie HOGAN MD Unavailable Unavailable JESICA, @ [facility] Unavailable Unavailable BEHZAD HOGAN MD Unavailable Unavailable Ching, Reginah W Kassidy ORDERLY-C Unavailable Unavailabl e Ching, Reginah W Kassidy ORDERLY-C Unavailable Unavailabl e Ching, Reginah W Kassidy ORDERLY-C Unavailable Unavailabl e Ching, Reginah W Kassidy ORDERLY-C Unavailable Unavailabl e Ching, Reginah W Kassidy ORDERLY-C Unavailable Unavailabl e Ching, Reginah W Kassidy ORDERLY-C Unavailable Unavailabl e Ching, Reginah W Kassidy ORDERLY-C Unavailable Unavailabl e Ching, Reginah W Kassidy ORDERLY-C Unavailable Unavailabl e Ching, Reginah W Kassidy ORDERLY-C Unavailable Unavailabl e Ching, Reginah W Kassidy ORDERLY-C Unavailable Unavailabl e Ching, Reginah W Kassidy ORDERLY-C Unavailable Unavailabl e Ching, Reginah W Kassidy ORDERLY-C Unavailable Unavailabl e Ching, Reginah W Kassidy ORDERLY-C Unavailable Unavailabl e Ching, Reginah W Kassidy ORDERLY-C Unavailable Unavailabl e Ching, Reginah W Kassidy ORDERLY-C Unavailable Unavailabl e Ching, Reginah W Kassidy ORDERLY-C Unavailable Unavailabl e Ching, Elijah Yi ORDERLY-C Unavailable Unavailabl e Ching, Elijah Yi ORDERLY-C Unavailable Unavailabl e Ching, Elijah Yi ORDERLY-C Unavailable Unavailabl e Ching, Elijah Yi ORDERLY-C Unavailable Unavailabl e Hcing, Elijah Yi ORDERLY-C Unavailable Unavailabl e Ching, Elijah Yi ORDERLY-C Unavailable Unavailabl e Ching, Elijah Yi ORDERLY-C Unavailable Unavailabl e Ching, Elijah Yi ORDERLY-C Unavailable Unavailabl e Ching, Elijah Yi ORDERLY-C Unavailable Unavailabl e Ching, Elijah Yi ORDERLY-C Unavailable Unavailabl e Ching, Elijah Yi ORDERLY-C Unavailable Unavailabl e Ching, Elijah Yi ORDERLY-C Unavailable Unavailabl e Ching, Elijah Yi ORDERLY-C Unavailable Unavailabl e Ching, Elijah Yi ORDERLY-C Unavailable Unavailabl e Ching, Elijah Yi ORDERLY-C Unavailable Unavailabl e Ching, Elijah Yi ORDERLY-C Unavailable Unavailabl e Lino Marie MD Unavailable [...] BROWN, L JANE Unavailable Unavailable DESJARLAIS, KAROLYN SALES TECHNICIAN HOME THEATER Unavailable Unavailable DESJARLAIS, KAROLYN SALES TECHNICIAN HOME THEATER Unavailable Unavailable DESJARLAIS, KAROLYN SALES TECHNICIAN HOME THEATER Unavailable Unavailable DESJARLAIS, KAROLYN SALES TECHNICIAN HOME THEATER Unavailable Unavailable DESJARLAIS, KAROLYN SALES TECHNICIAN HOME THEATER Unavailable Unavailable DESJARLAIS, KAROLYN SALES TECHNICIAN HOME THEATER Unavailable Unavailable DESJARLAIS, KAROLYN SALES TECHNICIAN HOME THEATER Unavailable Unavailable DESJARLAIS, KAROLYN SALES TECHNICIAN HOME THEATER Unavailable Unavailable DESJARLAIS, KAROLYN SALES TECHNICIAN HOME THEATER Unavailable Unavailable MAHESH RECINOS Unavailable Unavailable Lester, Mavis ORDERLY ORDERLY Unavailable Unavailable Lester, A Mavis ORDERLY Unavailable Unavailable Lester, A Mavis ORDERLY Unavailable Unavailable Lester, A Mavis ORDERLY Unavailable Unavailable Lester, A Mavis ORDERLY Unavailable Unavailable Lester, A Mavis ORDERLY Unavailable Unavailable Lester, A Mavis ORDERLY Unavailable Unavailable Lester, A Mavis ORDERLY Unavailable Unavailable Lester, A Mavis ORDERLY Unavailable Unavailable Lester, A Mavis ORDERLY Unavailable Unavailable Lester, A Mavis ORDERLY Unavailable Unavailable Lester, A Mavis ORDERLY Unavailable Unavailable Lester, A Mavis ORDERLY Unavailable Unavailable Lester, A Mavis ORDERLY Unavailable Unavailable Lester, A Mavis ORDERLY Unavailable Unavailable Lester, A Mavis ORDERLY Unavailable Unavailable Lester, A Mavis ORDERLY Unavailable Unavailable Lester, A Mavis ORDERLY Unavailable Unavailable Lester, A Mavis ORDERLY Unavailable Unavailable Lester, A Mavis ORDERLY Unavailable Unavailable Lester, A Mavis ORDERLY Unavailable Unavailable Lester, A Mavis ORDERLY Unavailable Unavailable Lester, A Mavis ORDERLY Unavailable Unavailable Lester, A Mavis ORDERLY Unavailable Unavailable Lester, A Mavis ORDERLY Unavailable Unavailable Lester, A Mavis ORDERLY Unavailable Unavailable Lester, A Mavis ORDERLY Unavailable Unavailable Lester, A Mavis ORDERLY Unavailable Unavailable Lester, A Mavis ORDERLY Unavailable Unavailable BLUM, KATRIN Unavailable Unavailable Re-disclosure [...] is protected by Article 27-F of the [facility] Public Health law. If you continue you may have access to information: Regarding HIV / AIDS; Provided by facilities licensed or operated by the [facility] Office of Mental Health; or Provided by the [facility] Office for People With Developmental Disabilities. If such information is present, then the following [facility] mandated warning applies: This information [...] allergy Drug allergy AMOXICLIIN SWELLING, HIVES R [facility] Drug allergy olanzapine olanzapine [facility] Drug allergy trimethoprim trimethoprim "BLISTERS IN MOUTH" [facility] Drug allergy sulfamethoxazole sulfamethoxazole "BLISTERS IN MOUTH" [facility] Drug allergy haloperidol haloperidol [facility] Drug allergy Sulfa (Sulfonamide Antibiotics) Sulfa (Sulfonami de Antibiotics) "BLISTERS IN MOUTH" [facility] Drug allergy Penicillins Penicillins SWELLING, HIVES SV R er [facility] Encounters Encounter Providers Location Date Indications Data Source(s ) Outpatient Attender: JANE EDWARD 04/20/2020 03:00:00 PM [facility] Outpatient [facility] 04/16/2020 12:00:00 AM EST eCW1 ([facility]) Outpatient Attender: FAHAD MOONEY 04/15/2020 09:45:0 0 AM [facility] Outpatient [facility] 04/12/2020 12:00:00 AM EST eCW1 ([facility]) Outpatient [facility] 04/08/2020 12:00:00 AM EST eCW1 ([facility]) Outpatient [facility] 04/08/2020 12:00:00 AM EST eCW1 ([facility]) Outpatient [facility] 04/08/2020 12:00:00 AM EST eCW1 ([facility]) Outpatient [facility] 04/05/2020 12:00:00 AM EST eCW1 ([facility]) Outpatient Attender: NATHAN PAUL PA-C 03/30/2020 10:30:00 AM [facility] Outpatient Attender: Shira Youngblood PA-C 03/30/2020 10:18 :00 AM [facility] Outpatient [facility] 03/30/2020 12:00:00 AM EST eCW1 ([facility]) Outpatient Attender: JANE EDWARD 03/23/2020 02:00:00 PM [facility] Outpatient Attender: JANE EDWARD 03/17/2020 10:30:00 AM [facility] Outpatient Attender: JANE EDWARD 03/11/2020 04:00:00 PM E [facility] Attender: FAHAD MOONEY 03/11/2020 06:30:0 0 AM [facility] Outpatient Attender: KAROLYN VAN NP 03/09/2020 03: 40:00 PM [facility] Outpatient [facility] 03/03/2020 12:00:00 AM EST eCW1 ([facility]) Outpatient Attender: Shira Fernándezrer: Shira Youngblood PA-C EMERGENCY ROOM-LAB 03/01/2020 04:49:00 PM EST - 03/01/2020 04:49:00 PM [facility] Outpatient Attender: Shira Youngblood PA-C 03/01/2020 03:45 :00 PM [facility] Outpatient [facility] 03/01/2020 12:00:00 AM EST eCW1 ([facility]) Outpatient [facility] 03/01/2020 12:00:00 AM EST eCW1 ([facility]) Outpatient Attender: KAROLYN VAN NP 02/18/2020 02: 40:00 PM [facility] Outpatient Attender: Kassidy SERRANO 02/18/2020 10:00:0 0 AM [facility] Outpatient [facility] 02/18/2020 12:00:00 AM EST eCW1 ([facility]) Outpatient [facility] 02/10/2020 12:00:00 AM EST eCW1 ([facility]) Outpatient [facility] 02/03/2020 12:00:00 AM EST eCW1 ([facility]) Outpatient [facility] 01/14/2020 12:00:00 AM EST eCW1 ([facility]) Outpatient [facility] 01/06/2020 12:00:00 AM EST eCW1 ([facility]) Outpatient Attender: JOHNATHON PATEL 01/02/2020 10:06:00 A M [facility] Outpatient [facility] 01/02/2020 12:00:00 AM EST eCW1 ([facility]) Outpatient Attender: JANE EDWARD 01/01/2020 02:30:00 PM [facility] Outpatient Attender: KAROLYN VAN NP 12/24/2019 11: 00:00 AM EDT [facility] Outpatient Attender: Shira Youngblood PA-C 12/24/2019 08:24 :00 AM EDT [facility] Outpatient [facility] 12/24/2019 12:00:00 AM EDT eCW1 ([facility]) Outpatient Attender: JANE EDWARD 12/23/2019 01:54:00 PM E [facility] Outpatient [facility] 12/23/2019 12:00:00 AM EDT eCW1 ([facility]) Outpatient Attender: Mavis DIEGO 12/12/2019 11:3 5:02 AM EDT [facility] Outpatient Attender: JANE EDWARD 12/11/2019 03:00:00 PM E [facility] Outpatient [facility] 12/09/2019 12:00:00 AM EDT eCW1 ([facility]) Outpatient Attender: Mavis PATEL 12/05/2019 01:2 6:01 PM EDT [facility] Inpatient Attender: PRERNA RIOS MDAdmitter: PRERNA Hopson MD ER-3RD 12/05/2019 10:08:00 AM EDT - 12/10/2019 01:07:00 PM EDT [facility] Patient discharged. Outpatient Attender: NATHAN PAUL PA-C 12/05/2019 09:03:[address] [facility] Admission cancelled. Disregard status an d admitted date. Inpatient Attender: BEHZAD HOGAN MD Attender: BEHZAD HOGAN MDAttender: DIOGENES BUENO MDAttender: DIOGENES BUENO MDAdmitter: BEHZAD HOGAN MD ER-ICU 12/04/2019 11:06:00 PM EDT - 12/05/2019 10:03:00 AM EDT [facility] Patient discharged. Emergency Attender: GINGER Salaser: Melissa Youngblood PA-C EMERGENCY ROOM-ER 12/04/2019 04:21:00 PM EDT - 12/04/2019 08:40:00 PM EDT [facility] Patient discharged. Outpatient Attender: KAROLYN VAN NP 12/04/2019 03: 11:00 PM EDT [facility] Outpatient Attender: Mavis DIEGO FP 11/29/2019 07:0 4:03 PM EDT [facility] Outpatient Attender: JOHNATHON DIEGO FP 11/29/2019 07:04:01 P M EDT [facility] Outpatient Attender: Mavis DIEGO FP 11/24/2019 12:2 9:00 PM EDT [facility] Emergency Attender: EVONNE Garzasultant: STAFF NON 11/07/2019 12:19:00 AM EDT - 11/07/2019 04:20:00 AM EDT [facility] Patient discharged. Outpatient [facility] 11/07/2019 12:00:00 AM EDT eCW1 ([facility]) Outpatient Attender: Mavis DIEGO FP 11/04/2019 02:2 6:02 PM EDT [facility] Outpatient Attender: KAROLYN VAN NP 11/04/2019 11: 40:00 AM EDT [facility] Outpatient Attender: Mavis DIEGO FP 11/02/2019 01:2 6:00 PM EDT [facility] Outpatient Attender: Mavis DIEGO FP 10/31/2019 06:0 2:00 PM EDT [facility] Outpatient Attender: JOHNATHON DIEGO FP 10/31/2019 06:01:59 P M EDT [facility] Outpatient Attender: Mavis DIEGO FP 10/31/2019 06:0 1:03 PM EDT [facility] Outpatient Attender: JOHNATHON DIEGO FP 10/31/2019 06:01:01 P M EDT [facility] Outpatient Attender: Shira Youngblood PA-C 10/31/2019 09:06 :00 AM EDT [facility] Outpatient [facility] 10/31/2019 12:00:00 AM EDT eCW1 ([facility]) Outpatient Attender: JANE EDWARD 10/27/2019 11:00:00 AM E [facility] Outpatient Attender: KAROLYN VAN NP 10/21/2019 03: 20:00 PM EDT [facility] Emergency Attender: EVONNE Pottsltant: STAFF NON 10/09/2019 02:09:00 AM EDT - 10/09/2019 03:44:00 AM EDT [facility] ital Patient discharged. Outpatient Attender: KATRIN BLUM 10/06/2019 09:37:00 AM ED T [facility] Outpatient Attender: Mavis DIEGO FP 09/25/2019 04:0 9:01 PM EDT [facility] Outpatient Attender: Mavis DIEGO FP 09/25/2019 04:0 7:59 PM EDT [facility] Outpatient Attender: JOHNATHON DIEGO FP 09/23/2019 10:31:00 A M EDT [facility] Outpatient Attender: JOHNATHON DIEGO FP 09/23/2019 10:30:01 A M EDT [facility] Outpatient Attender: JOHNATHON DIEGO FP 09/23/2019 12:02:09 A M EDT [facility] Outpatient Attender: JOHNATHON DIEGO FP 09/22/2019 05:44:02 P M EDT [facility] Outpatient Attender: Mavis DIEGO FP 09/22/2019 05:4 2:59 PM EDT [facility] Outpatient Attender: JOHNATHON DIEGO FP 09/22/2019 02:38:00 P M EDT [facility] Outpatient Attender: Mavis DIEGO FP 09/22/2019 12:0 5:01 PM EDT [facility] Outpatient Attender: JOHNATHON DIEGO FP 09/22/2019 07:56:01 A M EDT [facility] Outpatient Attender: Mavis DIEGO FP 09/16/2019 05:0 8:02 AM EDT [facility] Outpatient Attender: Mavis DIEGO FP 09/14/2019 05:1 9:00 PM EDT [facility] Outpatient Attender: JOHNATHON DIEGO FP 09/14/2019 05:19:00 P M EDT [facility] Outpatient Attender: Mavis DIEGO FP 09/12/2019 11:5 3:00 AM EDT [facility] Outpatient Attender: Mavis DIEGO FP 09/10/2019 11:0 6:01 PM EDT [facility] Outpatient Attender: JOHNATHON DIEGO FP 09/10/2019 11:06:01 P M EDT [facility] Outpatient Referrer: Femi Marie MD 08/15/2019 05:44:00 A M EDT [facility] Outpatient Attender: Mavis DIEGO FP 08/06/2019 09:5 2:01 AM EDT [facility] Outpatient Attender: JOHNATHON DIEGO FP 08/05/2019 07:41:16 P M EDT [facility] Outpatient Attender: Mavis DIEGO FP 08/05/2019 09:2 3:03 AM EDT [facility] Outpatient Attender: JOHNATHON DIEGO FP 08/05/2019 09:23:01 A M EDT [facility] Outpatient Attender: KATRIN BLUM 08/04/2019 09:42:00 AM ED [facility] Outpatient Attender: Mavis DIEGO FP 08/01/2019 10:3 1:00 AM EDT [facility] Outpatient Attender: Mavis DIEGO FP 08/01/2019 10:2 7:02 AM EDT [facility] Outpatient Attender: JOHNATHON DIEGO FP 07/30/2019 11:31:01 A M EDT [facility] Outpatient Attender: KATRIN BLUM 07/07/2019 03:30:00 PM ED [facility] Outpatient Attender: Mavis DIEGO FP 07/04/2019 10:3 [...] Marie MD 07/01/2019 04:55:00 A M EDT [facility] Outpatient Attender: JOHNATHON DIEGO FP 06/30/2019 04:21:00 P M EDT [facility] Outpatient Attender: Mavis DIEGO FP 06/22/2019 06:0 1:59 PM EDT [facility] Outpatient Attender: Mavis Batista ORDERLY FP 06/17/2019 03:3 2:01 PM EDT [facility] Outpatient Attender: JOHNATHON Batista JOHNATHON FP 05/27/2019 12:22:00 P M EDT [facility] Outpatient Attender: Mavis Batista JOHNATHON FP 05/24/2019 11:3 7:01 PM EDT [facility] Outpatient Attender: JOHNATHON Batista JOHNATHON FP 05/20/2019 12:36:01 P M EDT [facility] Outpatient Attender: JOHNATHON Batista JOHNATHON FP 05/20/2019 11:56:00 A M EDT [facility] Outpatient Attender: JOHNATHON Batista JOHNATHON FP 05/20/2019 11:42:01 A M EDT [facility] Outpatient Attender: JOHNATHON Batista JOHNATHON FP 05/01/2019 03:31:00 P M EST [facility] Outpatient Attender: Mavis Batista JOHNATHON FP 04/28/2019 10:4 4:01 AM [facility] Outpatient Attender: KATRIN BLUM 04/21/2019 10:29:00 AM [facility] Outpatient Attender: JOHNATHON DIEGO FP 04/15/2019 12:44:01 P M [facility] Outpatient Attender: MAHESH RECINOS 02/24/2019 01:46:00 PM [facility] Outpatient Attender: JANE EDWARD 02/21/2019 10:00:00 AM [facility] Outpatient Attender: MAHESH RECINOS 02/10/2019 02:18:00 PM [facility] Inpatient Attender: CHAO MARI MDAttdoug harjinder: PRERNA RIOS MDAdmitter: PRERNA RIOS MD ER-3RD 12/23/2018 04:01:00 PM EDT - 12/26/2018 01:22:00 PM EDT [facility] Patient discharged. Inpatient Attender: ONDINA RAMIREZ MDAdmitter: ONDINA RAMIREZ MD E R-ICU 12/19/2018 05:26:00 PM EDT - 12/23/2018 03:42:00 PM EDT [facility] Patient discharged. Emergency Attender: MATIAS MIKE EMERGENCY ROOM-ER 03:51:00 PM EDT - 12/19/2018 04:47:[address] [facility] Patient discharged. Medications Medication Brand Name [...] {capsule_at_bedtime} active Doxepin HCl 25 MG eCW1 ([facility] jimena) Doxepin Hydrochloride 25 MG Oral Capsule Doxepin HCl 25 MG D oxepin HCl 25 MG 03/09/2020 12:00:00 AM EST 1.0 {capsule_at_bedtime} active Doxepin HCl 25 MG eCW1 ([facility] jimena) Doxepin Hydrochloride 25 MG Oral Capsule Doxepin HCl 25 MG D oxepin HCl 25 MG 03/09/2020 12:00:00 AM EST 1.0 {capsule_at_bedtime} active Doxepin [facility] Doxepin Hydrochloride 25 MG Oral Capsule Doxepin HCl 25 MG D oxepin HCl 25 MG 03/09/2020 12:00:00 AM EST 1.0 {capsule_at_bedtime} active Doxepin HCl 25 MG [facility]CW1 [facility] Doxepin Hydrochloride 25 MG Oral Capsule Doxepin HCl 25 MG D oxepin HCl 25 MG 03/09/2020 12:00:00 AM EST 1.0 {capsule_at_bedtime} active Doxepin HCl 25 MG eCW1 ([facility] jimena) Doxepin Hydrochloride 25 MG Oral Capsule Doxepin HCl 25 MG D oxepin HCl 25 MG 03/09/2020 12:00:00 AM EST 1.0 {capsule_at_bedtime} active Doxepin HCl 25 MG [facility]CW1 [facility] Doxepin Hydrochloride 25 MG Oral Capsule Doxepin HCl 25 MG D oxepin HCl 25 MG 03/09/2020 12:00:00 AM EST 1.0 {capsule_at_bedtime} active Doxepin HCl 25 MG [facility]CW1 [facility] 8-2 mg 03/03/2020 12:00:00 AM EST [...] HCl 0.2 MG [facility]CW1 [facility] Clonidine Hydrochloride 0.2 MG Oral Tablet Clonidine H Cl 0.2 MG Clonidine HCl 0.2 MG 12/24/2019 12:00:00 AM EDT 1.0 {tablet} activ e Clonidine HCl 0.2 MG eCW1 ([facility]ena) Clonidine Hydrochloride 0.2 MG Oral Tablet Clonidine H Cl 0.2 MG Clonidine HCl 0.2 MG 12/24/2019 12:00:00 AM EDT 1.0 {tablet} activ e Clonidine HCl 0.2 MG [facility]CW1 [facility] Clonidine Hydrochloride 0.2 MG Oral Tablet Clonidine H Cl 0.2 MG Clonidine HCl 0.2 MG 12/24/2019 12:00:00 AM EDT 1.0 {tablet} activ e Clonidine HCl 0.2 MG eCW1 ([facility]) Clonidine Hydrochloride 0.2 MG Oral Tablet Clonidine H Cl 0.2 MG Clonidine HCl 0.2 MG 12/24/2019 12:00:00 AM EDT 1.0 {tablet} activ e Clonidine HCl 0.2 MG eCW1 ([facility]ena) Clonidine Hydrochloride 0.2 MG Oral Tablet Clonidine H Cl 0.2 MG Clonidine HCl 0.2 MG 12/24/2019 12:00:00 AM EDT 1.0 {tablet} activ e Clonidine HCl 0.2 MG eCW1 ([facility]) Clonidine Hydrochloride 0.2 MG Oral Tablet Clonidine H Cl 0.2 MG Clonidine HCl 0.2 MG 12/24/2019 12:00:00 AM EDT 1.0 {tablet} suspe nded Clonidine HCl 0.2 MG eCW1 ([facility]) Clonidine Hydrochloride 0.2 MG Oral Tablet Clonidine H Cl 0.2 MG Clonidine HCl 0.2 MG 12/24/2019 12:00:00 AM EDT 1.0 {tablet} activ e Clonidine HCl 0.2 MG eCW1 ([facility]an) Clonidine Hydrochloride 0.2 MG Oral Tablet Clonidine H Cl 0.2 MG Clonidine HCl 0.2 MG 12/24/2019 12:00:00 AM EDT 1.0 {tablet} activ e Clonidine HCl 0.2 MG eCW1 ([facility]) Clonidine Hydrochloride 0.2 MG Oral Tablet Clonidine H Cl 0.2 MG Clonidine HCl 0.2 MG 12/24/2019 12:00:00 AM EDT 1.0 {tablet} activ e Clonidine HCl 0.2 MG eCW1 ([facility]) Clonidine Hydrochloride 0.2 MG Oral Tablet Clonidine H Cl 0.2 MG Clonidine HCl 0.2 MG 12/24/2019 12:00:00 AM EDT 1.0 {tablet} activ e Clonidine HCl 0.2 MG eCW1 ([facility]) Clonidine Hydrochloride 0.2 MG Oral Tablet Clonidine H Cl 0.2 MG Clonidine HCl 0.2 MG 12/24/2019 12:00:00 AM EDT 1.0 {tablet} activ e Clonidine HCl 0.2 MG eCW1 ([facility]) Clonidine Hydrochloride 0.2 MG Oral Tablet Clonidine H Cl 0.2 MG Clonidine HCl 0.2 MG 12/24/2019 12:00:00 AM EDT 1.0 {tablet} suspe nded Clonidine HCl 0.2 MG eCW1 ([facility]) Clonidine Hydrochloride 0.2 MG Oral Tablet Clonidine H Cl 0.2 MG Clonidine HCl 0.2 MG 12/24/2019 12:00:00 AM EDT 1.0 {tablet} activ e Clonidine HCl 0.2 MG eCW1 ([facility]) Clonidine Hydrochloride 0.2 MG Oral Tablet Clonidine H Cl 0.2 MG Clonidine HCl 0.2 MG 12/24/2019 12:00:00 AM EDT 1.0 {tablet} activ e Clonidine HCl 0.2 MG eCW1 ([facility]) Clonidine Hydrochloride 0.2 MG Oral Tablet Clonidine H Cl 0.2 MG Clonidine HCl 0.2 MG 12/24/2019 12:00:00 AM EDT 1.0 {tablet} suspe nded Clonidine HCl 0.2 MG eCW1 ([facility]) Clonidine Hydrochloride 0.2 MG Oral Tablet Clonidine H Cl 0.2 MG Clonidine HCl 0.2 MG 12/24/2019 12:00:00 AM EDT 1.0 {tablet} activ e Clonidine HCl 0.2 MG eCW1 ([facility]) Clonidine Hydrochloride 0.2 MG Oral Tablet Clonidine H Cl 0.2 MG Clonidine HCl 0.2 MG 12/24/2019 12:00:00 AM EDT 1.0 {tablet} activ e Clonidine HCl 0.2 MG eCW1 ([facility]) 300 mg 12/13/2019 12:00:00 [...] MAXIMUM DAILY DOSE = 1 SOLD: 11/21/2019 Laksiha Brito ugs 21 mg/24 hr 11/18/2019 12:00:00 [...] {tablet_at_bedtime} active Clonazepam 0 .5 MG eC1 ([facility]) Clonazepam 0.5 MG Oral Tablet Clonazepam 0.5 MG 11/04/2019 12:00:00 AM EDT 1.0 {tablet_at_bedtime} active Clonazepam 0 .5 MG eCW1 ([facility]) lisdexamfetamine dimesylate 50 MG Oral Capsule [Vyvans e] Vyvanse 50 MG Vyvanse 50 MG 11/04/2019 12:00:00 AM EDT 1.0 {capsule_in_the_morning} active Vyvanse 50 MG eCW1 ([facility]) Citalopram 20 MG Oral Tablet [Celexa] Celexa 20 MG Celexa 20 MG 11/04/2019 12:00:00 AM EDT 1.0 {tablet} active Ce elise 20 MG eCW1 ([facility]) Citalopram 20 MG Oral Tablet [Celexa] Celexa 20 MG Celexa 20 MG 11/04/2019 12:00:00 AM EDT 1.0 {tablet} active Ce elise 20 MG eCW1 ([facility]) lisdexamfetamine dimesylate 50 MG Oral Capsule [Vyvans e] Vyvanse 50 MG Vyvanse 50 MG 11/04/2019 12:00:00 AM EDT 1.0 {capsule_in_the_morning} active Vyvanse 50 MG eCW1 ([facility]) Citalopram 20 MG Oral Tablet [Celexa] Celexa 20 MG Celexa 20 MG 11/04/2019 12:00:00 AM EDT 1.0 {tablet} active Ce elise 20 MG eCW1 ([facility]) 75 mg 11/02/2019 12:00:00 AM EDT [...] MOUTH EVERY DAY AT BEDTIME SOLD: 10/25/2019 [facility] 18 mg 10/18/2019 12:00:00 AM EDT [...] 1.0 {tablet} active Risperdal 3 MG eCW1 ([facility]) Risperidone 3 MG Oral Tablet [Risperdal] Risperdal 3 MG Risp erdal 3 MG 07/07/2019 12:00:00 AM EDT 1.0 {tablet} active Risperdal 3 MG eCW1 ([facility]) Risperidone 3 MG Oral Tablet [Risperdal] Risperdal 3 MG Risp erdal 3 MG 07/07/2019 12:00:00 AM EDT 1.0 {tablet} active Risperdal 3 MG eCW1 ([facility]) Risperidone 3 MG Oral Tablet [Risperdal] Risperdal 3 MG Risp erdal 3 MG 07/07/2019 12:00:00 AM EDT 1.0 {tablet} active Risperdal 3 MG eCW1 ([facility]) Risperidone 2 MG Oral Tablet [Risperdal] Risperdal 2 MG Risp erdal 2 MG 07/07/2019 12:00:00 AM EDT 1.0 {tablet} active Risperdal 2 MG [facility]CW1 [facility] [facility]) Risperidone 3 MG Oral Tablet [Risperdal] Risperdal 3 MG Risp erdal 3 MG 07/07/2019 12:00:00 AM EDT 1.0 {tablet} active Risperdal 3 MG eCW1 ([facility]) Risperidone 3 MG Oral Tablet [Risperdal] Risperdal 3 MG Risp erdal 3 MG 07/07/2019 12:00:00 AM EDT 1.0 {tablet} active Risperdal 3 MG eCW1 ([facility]) Risperidone 3 MG Oral Tablet [Risperdal] Risperdal 3 MG Risp erdal 3 MG 07/07/2019 12:00:00 AM EDT 1.0 {tablet} active Risperdal 3 MG eCW1 ([facility]) Risperidone 3 MG Oral Tablet [Risperdal] Risperdal 3 MG Risp erdal 3 MG 07/07/2019 12:00:00 AM EDT 1.0 {tablet} active Risperdal 3 MG eCW1 ([facility]) Risperidone 3 MG Oral Tablet [Risperdal] Risperdal 3 MG Risp erdal 3 MG 07/07/2019 12:00:00 AM EDT 1.0 {tablet} active Risperdal 3 MG eCW1 ([facility]) Risperidone 2 MG Oral Tablet [Risperdal] Risperdal 2 MG Risp erdal 2 MG 07/07/2019 12:00:00 AM EDT 1.0 {tablet} active Risperdal 2 MG eCW1 ([facility]) Risperidone 3 MG Oral Tablet [Risperdal] Risperdal 3 MG Risp erdal 3 MG 07/07/2019 12:00:00 AM EDT 1.0 {tablet} active Risperdal 3 MG eCW1 ([facility]) Risperidone 3 MG Oral Tablet [Risperdal] Risperdal 3 MG Risp erdal 3 MG 07/07/2019 12:00:00 AM EDT 1.0 {tablet} active Risperdal 3 MG eCW1 ([facility]) Risperidone 3 MG Oral Tablet [Risperdal] Risperdal 3 MG Risp erdal 3 MG 07/07/2019 12:00:00 AM EDT 1.0 {tablet} active Risperdal 3 MG eCW1 ([facility]) Risperidone 3 MG Oral Tablet [Risperdal] Risperdal 3 MG Risp erdal 3 MG 07/07/2019 12:00:00 AM EDT 1.0 {tablet} active Risperdal 3 MG eCW1 ([facility]) Risperidone 3 MG Oral Tablet [Risperdal] Risperdal 3 MG Risp erdal 3 MG 07/07/2019 12:00:00 AM EDT 1.0 {tablet} active Risperdal 3 MG eCW1 ([facility]) Risperidone 3 MG Oral Tablet [Risperdal] Risperdal 3 MG Risp erdal 3 MG 07/07/2019 12:00:00 AM EDT 1.0 {tablet} active Risperdal 3 MG eCW1 ([facility]) Risperidone 2 MG Oral Tablet [Risperdal] Risperdal 2 MG Risp erdal 2 MG 07/07/2019 12:00:00 AM EDT 1.0 {tablet} active Risperdal 2 MG eCW1 ([facility]) Risperidone 3 MG Oral Tablet [Risperdal] Risperdal 3 MG Risp erdal 3 MG 07/07/2019 12:00:00 AM EDT 1.0 {tablet} active Risperdal 3 MG eCW1 ([facility]) Risperidone 3 MG Oral Tablet [Risperdal] Risperdal 3 MG Risp erdal 3 MG 07/07/2019 12:00:00 AM EDT 1.0 {tablet} active Risperdal 3 MG eCW1 ([facility]) Risperidone 3 MG Oral Tablet [Risperdal] Risperdal 3 MG Risp erdal 3 MG 07/07/2019 12:00:00 AM EDT 1.0 {tablet} active Risperdal 3 MG eCW1 ([facility]) 8-2 mg 06/27/2019 12:00:00 AM EDT [...] relationship to dick Policy Dick Plan Information [facility] COMMUNITY PLAN [place] [id number] SP [id number] [facility] [id number] S [id number] [facility] MEDICAID [id number] S [id number] [facility](MCAID) O [id number] S [id number] [facility] MEDICAID [id number] S [id number] [facility] MEDICAID [id number] S [id number] Managed Care - [facility] Community Plan P [id number] S [id number] Medicaid S [id number] S [id number] [facility] [id number] SP [id number] [facility] [id number] S [id number] [facility] COMMUNITY PLAN [place] [id number] SP [id number] [facility] COMMUNITY PLAN [id number] [phone] MEDICAID [id number] SP [id number] [facility] Care [facility] Community Plan P [id number] S [id number] MEDICAID [id number] S [id number] MEDICAID [id number] S [id number] MEDICAID PROF FEES [id number] MEDICAID [id number] S [id number] [facility] [id number] S [id number] Medicaid S [id number] S [id number] [facility] Care [facility] P [id number] S [id number] [facility] 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 P [id number] S [id number] Medicaid S UNAVAILABLE S UNAVAILA BLE Problems, Conditions, and Diagnoses Code Display Name Description Problem Type Effective Dates Data Source(s) F19.10 Polysubstance abuse Polysubstance abuse Problem 0 03/11/2020 12:00:00 AM EST eCW1 ([facility] jimena) F19.11 [id number] History of drug abuse Problem 03/01/2020 12: 00:00 AM EST eCW1 ([facility]) K14.6 [id number] Tongue sore Problem 03/01/2020 12:00:[address] eCW1 ([facility]) F19.10 [id number] Substance abuse Problem 12/24/2019 12:00:00 AM EDT eCW1 ([facility]) F50.81 [id number] Binge eating disorder Problem 11/04/2019 12: 00:00 AM EDT eCW1 ([facility]) G56.03 [id number] Carpal tunnel syndrome, bilateral Pr oblem 10/31/2019 12:00:00 AM EDT eCW1 ([facility] jimena) R13.12 [id number] Oropharyngeal dysphagia Problem 10/31/2019 1 2:00:00 AM EDT eCW1 ([facility]) F17.200 [id number] Tobacco dependence Problem 10/31/2019 12:00: 00 AM EDT eCW1 ([facility]) E66.9 [id number] Obesity (BMI 30.0-34.9) Problem 0 10/31/2019 12:00:00 AM EDT eCW1 ([facility] jimena) Z68.30 576806952 BMI 30.0-30.9,adult Problem 10/31/2019 12:00 :00 AM EDT eCW1 ([facility]) K21.9 [id number] Gastroesophageal ref lux disease, esophagitis presence not specified Problem 10/31/2019 12:00:00 AM EDT eCW1 ([facility]) K92.0 Hematemesis Hematemesis - cause unknown 020 05:42:44 PM EDT [facility] I80.9 Phlebitis and thrombophlebitis of unspec ified site Phlebitis and thrombophlebitis of unspecified site 05/20/2019 12:34:09 PM EDT [facility] right AC and right tibia F15.10 Other stimulant abuse, uncomplicated OTH ER STIMULANT ABUSE, UNCOMPLICATED Diagnosis 03/30/2020 10:30:00 AM EST [facility] F19.10 Other psychoactive substance abuse, unco mplicated OTHER PSYCHOACTIVE SUBSTANCE ABUSE, UNCOMPLICATED Diagnosis 03/30/2020 10:30:00 AM [facility] F43.12 Post-traumatic stress disorder, chronic POST-TRAUMATIC STRESS DISORDER, CHRONIC Diagnosis 03/30/2020 10:30:00 AM EST [facility] T14.8XXA OTHER INJURY OF UNSPECIFIED BODY REGION, INITIAL E OTHER INJURY OF UNSPECIFIED BODY REGION, INITIAL E Diagnosis 03/30/2020 10:18:00 AM [facility] K13.79 Other lesions of oral mucosa OTHER LESIONS OF ORAL MUC SINA Diagnosis 03/30/2020 10:18:00 AM [facility] F25.9 Schizoaffective disorder, unspecified SC HIZOAFFECTIVE DISORDER, UNSPECIFIED Diagnosis 03/30/2020 10:18:00 AM [facility] A04.72 ENTEROCOLITIS D/T CLOSTRIDIUM DIFFICILE, NOT SPCF RECUR ENTEROCOLITIS D/T CLOSTRIDIUM DIFFICILE, NOT SPCF RECUR Diagnosis 10:18:00 AM [facility] F11.21 Opioid dependence, in remission OPIOID DEPENDENC E, IN REMISSION Diagnosis 03/23/2020 02:00:00 PM [facility] F50.81 BINGE EATING DISORDER BINGE EATING DISORDER Diagnosis 03/23/2020 02:00:00 PM [facility] F90.0 Attention-deficit hyperactivity disorder , predominantly inattentive type ATTN-DEFCT HYPERACTIVITY DISORDER, PREDOM INATTENT Diagnosis 01/2021 03:40:00 PM [facility] Z13.29 Encounter for screening for other suspec keven endocrine disorder ENCOUNTER FOR SCREENING FOR OTH SUSPECTE Diagnosis 03/01/2020 04:49:00 PM [facility] Z82.61 Family history of arthritis FAMILY HISTORY OF ARTHRITI S Diagnosis 03/01/2020 03:45:00 PM [facility] Z13.220 Encounter for screening for lipoid disor ders ENCOUNTER FOR SCREENING FOR LIPOID DISORDERS Diagnosis 03/01/2020 03:45:00 PM [facility] Z82.69 Family history of other dise ases of the musculoskeletal system and connective tissue FAMILY HISTORY OF DISEASES OF THE MS SYS AND CONNE Diagnosis 03/01/2020 03:45:00 PM [facility] R50.9 Fever, unspecified FEVER, UNSPECIFIED Diagnosis 05/2020 03:45:00 PM [facility] 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, in r emission OTHER PSYCHOACTIVE SUBSTANCE ABUSE, IN REMISSION Diagnosis 03/01/2020 03:45:00 PM [facility] G56.03 CARPAL TUNNEL SYNDROME, BILATERAL UPPER LIMBS CARPAL TUNNEL SYNDROME, BILATERAL UPPER LIMBS Diagnosis 03/01/2020 03:45:00 PM [facility] james K21.9 Gastro-esophageal reflux disease without esophagitis GASTRO-ESOPHAGEAL REFLUX DISEASE WITHOUT ESOPHAGITIS Diagnosis 02/18/2020 10:00:00 AM [facility] F12.10 Cannabis abuse, uncomplicated CANNABIS ABUSE, UNCOMPLI CATED Diagnosis 12/24/2019 11:00:[address] [facility] F11.10 Opioid abuse, uncomplicated OPIOID ABUSE, UNCOMPLICATE D Diagnosis 12/24/2019 11:00:[address] [facility] R13.12 Dysphagia, oropharyngeal phase DYSPHAGIA, OROPHARYNGEA L PHASE Diagnosis 12/24/2019 08:24:[address] [facility] M54.2 Cervicalgia CERVICALGIA Diagnosis 12/24/2019 08:24:[address] [facility] T50.914D POISONING BY MULTIPLE UNSP DRUG/MEDS/BIO L SUBST, U POISONING BY MULTIPLE UNSP DRUG/MEDS/BIOL SUBST, U Diagnosis 12/24/2019 08:24:[address] [facility] F19.20 Other psychoactive substance dependence, uncomplicated [...] DEPRESSIVE TYPE Diagnosis 12/05/2019 10:08:[address] [facility] Y92.[address] or not applicable [...] DRUGS, SLF- Diagnosis 12/04/2019 11:06:[address] [facility] T40.902A Poisoning by unspecified psy chodysleptics [...] STRESS DISORDER, UNSPECIFIED Diagnosis 12/04/2019 11:06:00 PM [facility] F43.23 Adjustment disorder with mixed anxiety a nd depressed mood ADJUSTMENT DISORDER WITH MIXED ANXIETY AND DEPRESS Diagnosis 12/04/2019 11:06:00 PM [facility] T42.4X2A Poisoning by benzodiazepines, intentiona l self-harm, initial encounter POISONING BY BENZODIAZEPINES, INTENTIONAL SELF-HARM, INIT Diagnosis 12/04/2019 11:06:00 PM [facility] Y93.89 Activity, other specified ACTIVITY, OTHER SPECIFIED Di agnosis 12/04/2019 04:21:[address] [facility] Y92.[address] as the place of o ccurrence of the external cause OT PLACES THE PLACE OF OCCURRENCE OF THE EXTER Diagnosis 09/2019 04:21:[address] 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 F17.210 Nicotine dependence, cigarettes, uncompl icated NICOTINE DEPENDENCE, CIGARETTES, UNCOMPLICATED Diagnosis 12/04/2019 04:21:00 PM [facility] T50.992A Poisoning by other drugs, me dicaments and biological substances, intentional self-harm, initial encounter POISONING BY OTH DRUG/MEDS/BIOL SUBST, SELF-HARM, Diagnosis 12/04/2019 04:21:00 PM [facility] R45.851 Suicidal ideations SUICIDAL IDEATIONS Diagnosis 09/2019 04:21:[address] [facility] S85050 Nicotine dependence, cigarettes, uncompl icated Nicotine dependence, cigarettes, uncomplicated Diagnosis 11/07/2019 12:19:00 AM [facility] F1510 Other stimulant abuse, uncomplicated Other stimu lant abuse, uncomplicated Diagnosis 11/07/2019 12:19:00 AM [facility] B95717 Other psychoactive substance abuse with psychoactive substance-induced anxiety disorder Other psychoactive substance abuse with psychoactive substance- induced anxiety disorder Diagnosis 11/07/2019 12:19:00 AM [facility] R110 Nausea Nausea Diagnosis 11/07/2019 12:19:00 AM ED [facility] Z76.89 Persons encountering health services in other specified circumstances PERSONS ENCOUNTERING HEALTH SERVICES IN OTH CIRCUM Diagnosis 05/2019 09:06:[address] [facility] Z71.9 Counseling, unspecified COUNSELING, UNSPECIFIED Diagno sis 10/31/2019 09:06:[address] [facility] Z68.30 Body mass index (BMI) 30.0-30.9, adult B BOB MASS INDEX (BMI) 30.0-30.9, ADULT Diagnosis 10/31/2019 09:06:00 AM [facility] E66.9 Obesity, unspecified OBESITY, UNSPECIFIED Diagnosis 10/31/2019 09:06:[address] [facility] R56.9 Unspecified convulsions UNSPECIFIED CONVULSIONS Diagno sis 10/31/2019 09:06:[address] [facility] F909 Attention-deficit hyperactivity disorder , unspecified type Attention- deficit hyperactivity disorder, unspecified type Diagnosis 10/08 02:09:00 AM [facility] J029 Acute pharyngitis, unspecified Acute pharyngitis, unsp ecified Diagnosis 10/09/2019 02:09:00 AM [facility] F15.11 OTHER STIMULANT ABUSE, IN REMISSION OTHER STIMUL ANT ABUSE, IN REMISSION Diagnosis 02/24/2019 01:46:00 PM [facility] Z72.0 Tobacco use TOBACCO USE Diagnosis 02/21/2019 10:00:00 AM [facility] Surgeries/Procedures Procedure Description Date Indications Data Source(s) Psychological Tests, Neurobehavioral and Cognitive Status 12/06/2019 12:00:00 AM [facility] Introduction of Electrolytic and Water B alance Substance into Peripheral Vein, Percutaneous Approach 12/04/2019 12:00:00 AM [facility] Results ID Date Data Source [id number] 04/10/2020 02:50:00 PM EST [facility] Name Value Range Interpretation Code Description Data [place] rce(s) Supporting Document(s) SARS coronavirus 2 RNA [Presence] in Res piratory specimen by MARK with probe detection POSITIVE [facility] This lab was ordered by [facility] a nd reported by [facility]. ID Date Data Source [id number] 04/09/2020 02:48:00 AM EST [facility] Name Value Range Interpretation Code Description Data [place] rce(s) Supporting Document(s) SARS COVID ANTIGEN POSITIVE [facility] This lab was ordered by [facility] INTERFACE a nd reported by [facility]. ID Date Data Source [id number] 04/09/2020 02:46:00 AM EST [facility] Name Value Range Interpretation Code Description Data [place] rce(s) Supporting Document(s) SARS COVID ANTIGEN POSITIVE [facility] This lab was ordered by [facility] INTERFACE a nd reported by [facility]. ID Date Data Source [id number] 03/04/2020 12:09:00 PM [facility] Name Value Range Interpretation Code Description Data [place] rce(s) Supporting Document(s) FAZAL DIRECT Negative Negative [facility] Performed at: RN - [facility] [place] [id number] Director: Elsa Garcia MD, Phone: [phone] ID Date Data Source [id number] 03/04/2020 12:05:00 PM EST [facility] Name Value Range Interpretation Code Description Data [place] rce(s) Supporting Document(s) FAZAL Direct Negative Negative [facility] ID Date Data Source [id number] 03/03/2020 08:50:00 AM EST [facility] ADD ON TEST Name Value Range Interpretation Code Description Data [place] rce(s) Supporting Document(s) RHEUMATOID FACTOR SCREEN NEGATIVE NEGATIVE [facility] ID Date Data Source [id number] 03/03/2020 08:37:00 AM EST [facility] ADD ON TEST Name Value Range Interpretation Code Description Data [place] rce(s) Supporting Document(s) FREE T4 1.0 ng/dL 0.76-1.46 [facility] ID Date Data Source [id number] 03/03/2020 08:37:00 AM EST [facility] ADD ON TEST Name Value Range Interpretation Code Description Data [place] rce(s) Supporting Document(s) TSH 0.422 uIU/mL 0.36-3.74 [facility] ID Date Data Source [id number] 03/03/2020 08:11:00 AM EST [facility] ADD ON TEST Name Value Range Interpretation Code Description Data [place] rce(s) Supporting Document(s) C REACTIVE PROTEIN 15.6 mg/L 0.0-3.0 [facility] ID Date Data Source [id number] 03/03/2020 08:11:00 AM EST [facility] ADD ON TEST Name Value Range Interpretation Code Description Data [place] rce(s) Supporting Document(s) GLUCOSE 85 mg/dL 74-106 [facility] BLOOD UREA NITROGEN 11 mg/dL 7-18 [facility] ital CREATININE 0.88 mg/dL 0.6-1.0 [facility] SODIUM 135 mmol/L 136-145 L [facility] POTASSIUM 4.1 mmol/L 3.5-5.1 [facility] CHLORIDE 99 mmol/L 98-107 [facility] CO2 26 mmol/L 21-32 [facility] CALCIUM 8.8 mg/dL 8.5-10.1 [facility] ANION GAP 10.0 mmol/L 5-12 [facility] GLOMERULAR FILTRATION RATE 74 mL/min [facility] GFR IS CALCULATED IN mL/min/1.73m2 LISANDRA L FUNCTION: >90MILDLY DECREASED: 60-89MILDY TO MODERATELY DECREASED: 45-59 MODERATELY TO SEVERELY DECREASED: 30-44SEVERELY DECREASED: 15-29RENAL FAILURE: <15 AST 32 U/L 15-37 [facility] ALT 32 U/L 12-78 [facility] ALKALINE PHOSPHATASE 65 U/L 46-116 [facility] pital TOTAL BILIRUBIN 0.2 mg/dL 0.2-1.0 [facility] TOTAL PROTEIN 6.9 g/dl 6.4-8.2 [facility] ALBUMIN 3.9 gm/dL 3.4-5.0 [facility] ID Date Data Source [id number] 03/01/2020 05:46:00 PM EST [facility] l Name Value Range Interpretation Code Description Data [place] rce(s) Supporting Document(s) CHOLESTEROL 193 mg/dL 0-200 [facility] TRIGLYCERIDES 86 mg/dL 0-150 [facility] LDL CHOLESTEROL 111 mg/dL 0-100 H [facility] HDL CHOLESTEROL 65 mg/dL 40-60 H [facility] CHOL/HDL RATIO 3.0 0.0-5.0 [facility] ID Date Data Source [id number] 02/29/2020 10:40:00 AM EST [facility] Name Value Range Interpretation Code Description Data [place] rce(s) Supporting Document(s) SARS coronavirus 2 RNA [facility] This lab was ordered by [facility] and reported by [facility]. ID Date Data Source [id number] 12/10/2019 11:15:00 AM EDT [place], [place] [address]PATIENT NAME: BRUNA LEE#: [id number] PHYSICIAN: PRERNA RIOS MD ADM. DATE: 12/05/19ACCOUNT #: [id number] DISCH. DATE:DISCHARGE SUMMARYIDENTIFICATION: A 34-year-old female with schizoaffective disorder,polysubstance dependence.CHIEF COMPLAINT: "I don't know why I am here."REASON FOR ADMISSION: Post- overdose.HISTORY OF PRESENT ILLNESS: The patient was interviewed in ICU after sheoverdosed. The patient was seen in [facility] for a regularconsultation, she could not [...] [place] last time in our service with [...] ABUSE: None.SOCIAL HISTORY: The patient is from [place], did not finish high school.She was in [...] The patient was discharged with the medications Idzpxu45 mg p.o. daily, Neurontin 600 mg p.o. [...] be enrolled in outpatient chemical dependence in [place].MENTAL STATUS EXAMINATION: The patient is pleasant, cooperative. [...] Dictated: 12/10/2019 09:34:34Date Transcribed: 12/10/2019 10:15:05JV/PUSJob #: [id number]: 12/10/19 0934 Electronically SignedTRANS:12/10/19 1115 PRERNA RIOS MDTRANS BY:[email or web address] SIGNED:12/10/19REPORT COPY TO: Name Value Range Interpretation Code Description Data [place] rce(s) Supporting Document(s) ID Date Data Source [id number] 12/10/2019 06:43:00 AM EDT [address] [id number] NAME: BRUNA LEE#: [id number] PHYSICIAN: PRERNA RIOS, [facility]: [id number] ADM. DATE: 12/05/19PATIENT : 89 DISCH. DATE: [...] follow-upappointmentDischarge InformationDISCHARGE INFORMATION* Thank you for [facility] and allowing us toserve you* Our Goal is to provide the highest quality of care.* This discharge information is to help you better understand your diagnosisand medication* Avoid taking ysyu-iss-ncjlxhs medicines unless approved by your physician.* Take your medications as prescribed. DO NOT stop any medications unlessapproved first* Weigh yourself daily. Report any gain of 5 lbs in a week* 24 Hour Crisis HOTLINE available: Call Reach[facility] at [phone]* Chem. Dependency: Walk in Clinics [place] ([phone]) and [place] ([phone]) anytime Sunday thru Sunday 8 to 10am. [place] ([phone]) anytimeSunday thru Sunday 8 to 10am. [place] ([phone]) Sunday or Sunday from 8to 10am (Bring $30 to [facility]) SMOKIN G CESSATION* Smoking is dangerous to your health. It delays the healing process, andworks against your medications. Not smoking will improve your health* Our hospital participates with the Opt-to-Quit program. You will be contactedafter discharge by the [facility] Smoker's Quitline for support with tobaccocessation. You have the option once contacted to refuse this service.* You can also go online to www.Level. Free nicotine replacementsare available Attention* You should [...] rce(s) Supporting Document(s) ID Date Data Source [id number] 12/10/2019 02:15:00 AM EDT [address] [id number] NAME: BRUNA LEE Joe Orellana#: [id number] PHYSICIAN: PRERNA RIOS MD ADM. DATE: 12/05/19PROGRESS NOTE DATE: 12/09/19 .#: [id number] #: [id number] NOTEIDENTIFICATION: A 34-year-old female with mood disorder [...] Dictated: 12/09/2019 10:52:52Date Transcribed: 12/10/2019 01:15:28JV/RAVJob #: [id number]: 12/09/19 1052 Electronically SignedTRANS:12/10/19 0215 PRERNA RIOS MDTRANS BY:ADE SIGNED:12/10/19REPORT COPY TO: Name Value Range Interpretation Code Description Data [place] rce(s) Supporting Document(s) ID Date Data Source [id number] 12/08/2019 11:58:00 AM EDT [facility] Name Value Range Interpretation Code Description Data [place] rce(s) Supporting Document(s) URINE COLOR Yellow [facility] UAPR Clear N [facility] UGLU Negative NEGATIVE [facility] URINE BILIRUBIN Negative NEGATIVE [facility] UKET Negative NEGATIVE N [facility] USG 1.015 1.010-1.025 [facility] UBLO Negative NEGATIVE N [facility] UpH 8.0 5.0-8.0 [facility] UPRO Negative Negative N [facility] UUB 0.2 mg/dL 0.2-1.0 N [facility] UNIT Negative Negative N [facility] ULEU Negative Negative [facility] ID Date Data Source [id number] 12/09/2019 04:57:00 AM EDT [facility] [address] [id number] NAME: JESUSBRUNA Joe Orellana#: [id number] PHYSICIAN: PRERNA RIOS MD ADM. DATE: 12/05/19PROGRESS NOTE DATE: 12/08/19 .#: [id number] #: [id number] NOTEIDENTIFICATION: A 34-year-old female with mood disorder, [...] Dictated: 12/08/2019 10:30:51Date Transcribed: 12/09/2019 03:57:49JV/RAVJob #: [id number]: 12/08/19 1030 Electronically SignedTRANS:12/09/19 0457 PRERNA RIOS MDTRANS BY:IATDAFUNMI SIGNED:12/09/19REPORT COPY TO: Name Value Range Interpretation Code Description Data [place] rce(s) Supporting Document(s) ID Date Data Source [id number] 12/06/2019 11:02:00 PM EDT [place], [place] [address]PATIENT NAME: BRUNA LEE#: [id number] PHYSICIAN: PRERNA RIOS MD ADM. DATE: 12/05/19ACCOUNT #: [id number] .#: [id number] ASSESSMENTIDENTIFICATION: A 34-year-old female with schizoaffective disorder andpolysubstance dependence.CHIEF COMPLAINT: "I don't know why I am here."REASON FOR ADMISSION: Post-overdose.HISTORY OF PRESENT ILLNESS: According to the records and our interview, thepatient was brought to our service after being in ICU and the medical floorfor an overdose. The patient went to the outpatient clinic in [facility] and she passed out in consultation. [...] 2 weeks ago, that she was in [place] inpatient service for 5 days forthat.The patient [...] into detail.SOCIAL HISTORY: The patient is from [place]. Did not finish high school.She is in [...] Dictated: 12/06/2019 12:22:47Date Transcribed: 12/06/2019 22:02:14JV/GBJob #: [id number]: 12/06/19 1222 Electronically Signed TRANS:12/06/19 2302 PRERNA RIOS MDTRANS BY:ADE SIGNED:12/07/19REPORT COPY TO: Name Value Range Interpretation Code Description Data [place] rce(s) Supporting Document(s) ID Date Data Source [id number] 12/05/2019 02:12:00 AM [facility] Name Value Range Interpretation Code Description Data [place] rce(s) Supporting Document(s) CKI 109 U/L 17-150 [facility] ID Date Data Source [id number] 12/05/2019 04:49:00 PM EDT [facility] [address] HEALTH HISTORY AND PHYSICALPATIENT NAME: BRUNA LEE MR#: [id number] PHYSICIAN: FELA VILLAROR: Diogenes Bueno MD DATE: [...] and [facility]Past Medical/Surgical HistoryPast Medical/Surgical HistoryMedical ProblemsAcute [...] rce(s) Supporting Document(s) ID Date Data Source [id number] 12/05/2019 09:48:00 AM EDT [facility] [address] [address]SODBCHIJX SUMMARYPATIENT NAME: BRUNA LEE MR#: [id number] PHYSICIAN: BEHZAD HOGAN MDAUTHOR: Diogenes Bueno MD DATE: 12/04/19 RM#: ICUDISCHARGE DATE: 12/05/19 : 87Summary of HospitalizationReason for AdmissionOverdose on xanax, gabapentin, bath saltsHospital Kppioa23 yo F who was admitted for an [...] and the [facility]Diagnoses (Current Visit)Problem List1. Drug overdose2. [...] taking the following medications:Gabapentin* (Neurontin*) 400 MG [id number] MILLIGRAM Orally DAILYContinue taking these medications:LEVETIRACETAM (LEVETIRACETA) 1,000 MG TABLET1,000 MILLIGRAM Orally TWICE DAILYQty = 60Amitriptyline HCl (Amitriptyline HCl) 100 MG [id number] MILLIGRAM Orally DAILYSUCRALFATE (Carafate*) 1 GM TABLET1 GM Orally TWICE DAILYcloniDINE* (CLONIDINE*) 0.1 MG TABLET0.1 MILLIGRAM Orally TWICE DAILYOmeprazole Magnesium (Prilosec Otc) 20 MG TABLET.DR20 MILLIGRAM Orally DAILYrispERIdone (RISPERDAL*) 0.5 MG TABLET2 MILLIGRAM Orally TWICE DAILYATOMOXETINE HCL (Strattera) 18 MG [id number] MILLIGRAM Orally DAILYBUPRENORPHINE HCL/NALOXONE HCL (Suboxone 8 MG-2 MG Sl Film) 1 EACH FILM1 MILLIGRAM SublinguallySUMATRIPTAN SUCCINATE (Imitrex*) 50 MG [id number] MILLIGRAM Orally DAILY NEEDED as needed for HeadacheOxcarbazepine (Trileptal) 150 MG [id number] MILLIGRAM Orally TWICE DAILYDischarge Activity: As tolerated, No liftingDischarge diet: RegularFollow-upFollow up with the mental health doctor [facility] spent by provider to complete discharge > 30 minutesDATE SIGNED: 12/05/19 Electronically SignedTIME SIGNED: 1912 DIOGENES BUENO MD Name Value Range Interpretation Code Description Data [place] rce(s) Supporting Document(s) ID Date Data Source [id number] 12/05/2019 09:46:00 AM EDT [facility] [address] [place], [place] [address]SBHJMWA NAME: BRUNA LEE Joe Orellana#: [id number] PHYSICIAN: BEHZAD HOGAN [facility]OUNT #: [id number] ADM. DATE: 12/04/19PATIENT : 89 DISCH. DATE: [50}DISCHARGE SUMMARYMedical Discharge PlanNicotine Replacement TherapyPrescribed at discharge Rx not offered at DCReason not offered pt is going to UPersonal Care InstructionsDischarge Activity: As tolerated, No liftingDischarge diet: RegularProblem ListMedical ProblemsAcute respiratory failure (Acute)Drug abuse (Chronic)Drug overdose (Acute)SchizophreniaSeizure disorder (Chronic, 12/20/18)Follow Up CareFollow Up:Follow up with the mental health doctor [facility]Priority ItemsUrgent/Important items that need to be addressed at primary care follow-upappointmentPLEASE AVOID GABAPENTIN/XANAX/BATH SALTS IN THE FUTUREDischarge InformationDISCHARGE INFORMATION* Thank you for [facility] and allowing us toserve you* Our [...] Hour Crisis HOTLINE available: Call [employer] at [phone] SMOKING CESSATION* Smoking is dangerous to your health. It delays the healing process, andworks against your medications. Not smoking will improve your health* Our [facility] participates with the Opt-to-Quit program. You will be contactedafter discharge by the [facility] Smoker's Quitline for support with tobaccocessation. You have the option once contacted to refuse this service.* You can also go online to www.Level. Free nicotine replacementsare available Attent ion* You [...] rce(s) Supporting Document(s) ID Date Data Source [id number] 12/06/2019 02:37:00 AM EDT [facility] [address] [address]FIAXNBF NAME: BRUNA LEE#: [id number] PHYSICIAN: BEHZAD HOGAN MD ADM. DATE: 12/04/19CONSULTING PHYSICIAN: PRERNA RIOS MD .#: ICUACCOUNT #: [id number] REPORTIDENTIFICATION: A 34-year-old female with mood disorder. This is a shortconsultation for a 34-year-old female who was unresponsive. The patient is inICU and at this point it is not clear the reason for an overdose.According to the records, the patient has a history of seizures, GERD, carpaltunnel, adjustment disorder, anxiety, depression, PTSD, and ADHD. Accordingto the records, the patient went to [facility] for an evaluation. Shehad an overdose. Was unconscious and at that point, according to the records,she stated that she injected bath salts in the morning, that is when shebecame unconscious and it is not clear who called the EMS that brought [facility]. The patient has poor response to [...] the lastthing she remembers is being at [place] so she is oriented to person, not [...] Dictated: 12/05/2019 09:24:19Date Transcribed: 12/06/2019 01:37:33JV/GBJob #: [id number]: 12/05/19 0924 Electronically SignedTRANS:12/06/19 0237 PRERNA RIOS MDTRANS BY:ADE SIGNED:12/09/19REPORT COPY TO: Name Value Range Interpretation Code Description Data [place] rce(s) Supporting Document(s) ID Date Data Source [id number] 12/05/2019 08:01:00 AM EDT [facility] Patient: COME, BRUNA Observation Repor t - [facility].VisitID: [id number] [place] [address] [phone], FRegistration Date/Time: 12/04/2019 15:46 Weight:68.4 kg (E). [...] 12/04/2019 20:43) Addenda for COME, BRUNA VisitID: [id number] Date: 12/04/2019 12/05/2019 7:59Spoke to [facility] nurse Deborah who wanted to come to [place] to see patient. Advised Deborah that the patient was [facility]. (Electronically signed by Allyssa Paredes R.N. - 12/05/2019 7:59) Name Value Range Interpretation Code Description Data [place] rce(s) Supporting Document(s) ID Date Data Source [id number] 12/05/2019 07:34:00 AM EDT [facility] Name Value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 Report - Physicians/Mid Levels [facility] Emergency Department [address] [place] [address] Phone #: ext- [phone] 11/07/2019 00:19 Patient: BRUNA LEE Sex: F [...] was requested by: Evonne Anne Reference #: [id number] Others' Prescriptions Patient Name: Bruna LeeBirth Date: 1985 Address: [address] [place], [place] [address]Sex: Female Rx Written Rx Dispensed Drug Quantity [...] table. 6 Clinical Report - Physicians/Mid Levels [facility] Emergency Department [address] [place] [address] Phone #: ext- [phone] 11/07/2019 00:19 Patient: [...] Oral. 7 Clinical Report - Physicians/Mid Levels [facility] Emergency Department [address] [place] [address] Phone #: ext- [phone] 11/07/2019 00:19 Patient: [...] rce(s) Supporting Document(s) ID Date Data Source [id number] 11/07/2019 03:20:00 AM EDT [facility] Name Value Range Interpretation Code Description Data [place] rce(s) Supporting Document(s) HCG SERUM QUAL NEGATIVE NORMAL: NEGATIVE [facility] HCG SERUM QL REENTER NEGATIVE NORMAL: NEGATIVE [facility] { KIT LOT # [id number] ){ KIT EXP DATE 12-08-20 ){ PROCEDURAL CONTROL VALID ) ID Date Data Source [id number] 11/07/2019 03:15:00 AM EDT [facility] Name Value Range Interpretation Code Description Data [place] rce(s) Supporting Document(s) Creatine kinase [Enzymatic activity/volume] in Serum or Plasma 3 13 U/L 30 - 170 H [facility] ID Date Data Source [id number] 11/07/2019 03:14:00 AM EDT [facility] Name Value Range Interpretation Code Description Data [place] rce(s) Supporting Document(s) COMPREHENSIVE METABOLIC PANEL [facility] COMPREHENSIVE METABOLIC PANEL Sodium [Moles/volume] in Serum or Plasma 140 mEq/L 134 - 153 [facility] Potassium [Moles/volume] in Serum or Plasma 3.8 mEq/L 3.6 - 5.0 [facility] Chloride [Moles/volume] in Serum or Plasma 100 mEq/L 98 - 107 [facility] Carbon dioxide, total [Moles/volume] in Serum or Plasma 30 MEQ/L 22 - 30 [facility] Glucose [Mass/volume] in Serum or Plasma 98 MG/DL 65 - 110 [facility] BUN 14 MG/DL 7 - 21 [facility] Creat[facility] [Mass/volume] in Serum or Plasma 0.7 MG/DL 0.7 - 1.5 [facility] BUN/CREAT 20 8 - 27 [facility] Protein [Mass/volume] in Serum or Plasma 5.9 G/DL 6.3 - 8.2 L [facility] Albumin [Mass/volume] in Serum or Plasma 3.6 G/DL 3.9 - 5.0 L [facility] Globulin [Mass/volume] in Serum by calculation 2.3 GM/DL 2.4 - 3.2 L [facility] A/G RATIO 1.6 0.8 - 2.0 [facility] Calcium [Mass/volume] in Serum or Plasma 9.2 MG/DL 8.4 - 10.2 [facility] Bilirubin.total [Mass/volume] in Serum or Plasma <0.7 MG/DL 0.2 - 1.3 [facility] Alkaline phosphatase [Enzymatic activity/volume] in Serum or Plasma 62 U/L 38 - 126 [facility] Aspartate aminotransferase [Enzymatic activity/volume] in Serum or Plasma 302 U/L 5 - 40 H [facility] Alanine aminotransferase [Enzymatic activity/volume] in Seru m or Plasma 125 U/L 7 - 56 H [facility] Anion gap 3 in Serum or Plasma 10.0 mmol/L 8.0 - 16.0 [facility] AGE 34 [facility]rs [facility] GFR >60 mL/min [facility] ital AFR AMER GFR >60 mL/min [facility] Ho spital Male GFR In terprentation [...] >32 mL/min Normal ID Date Data Source [id number] 11/07/2019 02:27:00 AM EDT [facility] Name Value Range Interpretation Code Description Data [place] rce(s) Supporting Document(s) CBC W/AUTOMATED DIFF [facility] COMPLETE BLOOD COUNT Leukocytes [#/volume] in Blood by Automated count 8.3 10^3/uL 4.2 - 1 1.0 [facility] Erythrocytes [#/volume] in Blood by Automated count 3.87 10^6/uL 4. 20 - 5.40 L [facility] Hemoglobin [Mass/volume] in Blood 11.6 g/dL 12.0 - 16.0 L [facility] Hematocrit [Volume Fraction] of Blood by Automated count 36.0 % 3 7.0 - 47.0 L [facility] Erythrocyte mean corpuscular volume [Entitic volume] by Auto mated count 93.0 fL 81.0 - 101 [facility] Erythrocyte mean corpuscular hemoglobin [Entitic mass] by Automated count 30.0 pg 27.0 - 34.0 [facility] Erythrocyte mean corpuscular hemoglobin concentration [Mass/volume] by Automated count 32.2 g/dL 31.0 - 36.0 [facility] Erythrocyte distribution width [Ratio] by Automated count 13.3 % 11.5 - 14.5 [facility] Platelets [#/volume] in Blood by Automated count 271 10^3/uL 150 - 45 0 [facility] Platelet mean volume [Entitic volume] in Blood by Automated count 9.5 fL 7.4 - 10.4 [facility] Neutrophils/100 leukocytes in Blood by Automated count 82.6 % 37. 0 - 80.0 H [facility] Lymphocytes/100 leukocytes in Blood by Manual count 14.3 % 25.0 - 40.0 L [facility] Monocytes/100 leukocytes in Blood by Automated count 1.6 % 3.0 - 8.0 L [facility] Eosinophils/100 leukocytes in Blood by Automated count 0.8 % 0.0 - 7.0 [facility] Basophils/100 leukocytes in Blood by Automated count 0.2 % 0.0 - 2.5 [facility] %IG 0.5 % 0.0 - 0.0 [facility] %NRBC 0.0 % 0.0 - 0.0 [facility] al Neutrophils [#/volume] in Blood by Automated count 6.85 10^3/uL 2.00 - 6.90 [facility] Lymphocytes [#/volume] in Blood by Automated count 1.19 10^3/uL 0.60 - 3.40 [facility] Monocytes [#/volume] in Blood by Automated count 0.13 10^3/uL 0.00 - 0.90 [facility] Eosinophils [#/volume] in Blood by Automated count 0.07 10^3/uL 0.00 - 0.70 [facility] Basophils [#/volume] in Blood by Automated count 0.02 10^3/uL 0.00 - 0.20 [facility] #IG 0.04 10^3/uL 0.00 - 0.10 [facility] H ospital #NRBC 0.00 10^3/uL 0.00 - 0.00 [facility] ospital MANUAL DIFF NOT INDICATED [facility] RBC MORPH NOT INDICATED [facility] Ho spital ID Date Data Source [id number] 11/07/2019 03:14:00 AM EDT [facility] Name Value Range Interpretation Code Description Data [place] rce(s) Supporting Document(s) DRUG SCREEN URINE [facility] URINE DRUG SCREEN Amphetamine [Presence] in Urine by Screen method PRESUMP POS LISANDRA L: NEGATIVE [facility] BARBITURATES NEGATIVE NORMAL: NEGATIVE [facility] BENZO NEGATIVE NORMAL: NEGATIVE [facility] COCAINE NEGATIVE NORMAL: NEGATIVE [facility] Tetrahydrocannabinol [Presence] in Urine NEGATIVE NORMAL: NEGATIVE [facility] OPIATES NEGATIVE NORMAL: NEGATIVE [facility] Phencyclidine [Presence] in Urine by Screen method NEGATIVE NOR MAL: NEGATIVE [facility] \\BLDo\\URINE DRUG SCR EEN INTERPRETATION\\BLDx\\ THE CUTOFFF LEVELS FOR DETECTION ARE FOLLOWS: AMPHETAMINES 1000 ng/ml BARBITUARATES 200 ng/ml BENZODIAZEPINES 100 ng/ml THC 50 ng/ml PHENCYCLIDINE 25 ng/ml OPIATES 300 ng/ml COCAINE 300 ng/ml ALL POSITIVES ARE CONSIDERED PRESUMPTIVE POSITIVE CONFIRMATION WILL BE PERFORMED AT PHYSICIAN REQUEST. ID Date Data Source [id number] 11/07/2019 02:27:00 AM EDT [facility] Name Value Range Interpretation Code Description Data [place] rce(s) Supporting Document(s) URINALYSIS [facility] Hospi james URINALYSIS SOURCE R [facility] Hospit al COLOR yellow NORMAL: Yellow [facility] H ospital CLARITY clear NORMAL: Clear [facility] Ho spital Specific gravity of Urine by Test strip 1.020 1.001 - 1.030 [facility] pH 6 5 - 9 [facility] Hospit al Glucose [Mass/volume] in Urine by Test strip NORM NORMAL: Negat [facility] Bilirubin.total [Presence] in Urine by Test strip NEG NORMAL: Negative [facility] Ketones [Presence] in Urine by Test strip NEG NORMAL: Negative [facility] Protein [Mass/volume] in Urine by Test strip NEG NORMAL: Negat [facility] Nitrite [Presence] in Urine by Test strip NEG NORMAL: Negative [facility] BLOOD NEG NORMAL: Negative [facility] Leukocyte esterase [Presence] in Urine by Test strip NEG LISANDRA L: Negative [facility] Urobilinogen [Mass/volume] in Urine by Test strip 1 less kenna n 1.0 mg/dL [facility] MICROSCOPIC Not Indicate [facility] H ospital ID Date Data Source [id number] 10/30/2019 10:27:00 AM EDT [facility] Name Value Range Interpretation Code Description Data [place] rce(s) Supporting Document(s) BG FASTING 132 mg/dL 70-100 H [facility] y Health TSH 0.526 microintl units/mL 0.358-3.740 [facility] ID Date Data Source [id number] 10/30/2019 10:27:00 AM EDT [facility] Name Value Range Interpretation Code Description Data [place] rce(s) Supporting Document(s) HCT 37.6 % 36.0-47.0 N [facility] HGB 11.8 g/dL 12.0-15.5 L [facility] MCH 31.4 G/DL pg 32.0-36.5 L [facility] MCHC 29.9 PG % 27.0-33.0 N [facility] PLATELETS 209 10 10*3/mm3 150-450 N [facility] RBC 3.94 10 10*6/mm3 4.00-5.40 L [facility] RDW 12.6 % 11.5-14.5 N [facility] WBC TOTAL 4.5 4.0-10.0 N [facility] ID Date Data Source [id number] 10/13/2019 03:25:00 PM EDT [facility] Name Value Range Interpretation Code Description Data [place] rce(s) Supporting Document(s) HCT 40.7 % 36.0-47.0 N [facility] HGB 13.3 g/dL 12.0-15.5 N [facility] MCH 32.7 G/DL pg 32.0-36.5 N [facility] MCHC 30.4 PG % 27.0-33.0 N [facility] PLATELETS 288 10 10*3/mm3 150-450 N [facility] RBC 4.37 10 10*6/mm3 4.00-5.40 N [facility] RDW 12.4 % 11.5-14.5 N [facility] WBC TOTAL 8.7 4.0-10.0 N [facility] ID Date Data Source [id number] 10/09/2019 02:09:00 AM EDT [facility] 1 OrderSheet [facility] Emergency Department [address] [place] [address] Phone #: ext- [phone] 10/09/2019 02:08 Patient: BRUNA LEE Sex: F [...] rce(s) Supporting Document(s) ID Date Data Source [id number] 10/09/2019 02:09:00 AM EDT [facility] 1 Medication Reconciliation Report [facility] Emergency Department [address] [place] [address] Phone #: ext- [phone] 10/09/2019 02:08 Patient: [...] rce(s) Supporting Document(s) ID Date Data Source [id number] 10/09/2019 02:09:00 AM EDT [facility] 1 Medication Administration Record [facility] Emergency Department [address] [place] [address] Phone #: ext- [phone] 10/09/2019 02:08 Patient: BRUNA LEE Sex: F : 1985 Age: 34yWeight: 81.1 kgHeight/Length: 60 inBMI: 34.9ALLERGIES: Penicillins, Sulfa Antibiotics Date/Time Medication Administered Medication OrderedGiven IBUPROFEN [PO] Ibuprofen 800 mg PO X1 dose: 65782:39 10/09/2019 Dose: 800 mg Tablets PO mg (NOW x1)Meme Maldonado R.N. Name Value Range Interpretation Code Description Data [place] rce(s) Supporting Document(s) ID Date Data Source [id number] 10/09/2019 02:09:00 AM EDT [facility] 1 General Instructions [facility] [facility] Emergency Department [address] [place] [address] Phone #: ext [phone] 10/09/2019 02:08 Patient: BRUNA LEE Sex: F [...] INFORMATIONViral Pharyngitis (Sore Throat) 2 General Instructions [facility] Emergency Department [address] [place] [address] Phone #: ext- [phone] 10/09/2019 02:08 Patient: [...] glass of warm water. 3 General Instructions [facility] Emergency Department [address] [place] [address] Phone #: ext- [phone] 10/09/2019 02:08 Patient: [...] breathing or noisy breathing 4 General Instructions [facility] Emergency Department [address] [place] [address] Phone #: ext- [phone] 10/09/2019 02:08 Patient: BRUNA LEE Sex: F : 1985 Age: 34y Muffled voice New rash Other symptoms are getting worse [id number] [employer]. [address] [place] [address]. All rights reserved. This information is not intended as asubstitute for professional medical care. Always follow your healthcare professional's instructions. You have been given the following additional information: Pharyngitis, Viral(Electronically signed by Evonne Anne M.D. 10/09/2019 03:51) Name Value Range Interpretation Code Description Data [place] rce(s) Supporting Document(s) ID Date Data Source [id number] 10/09/2019 02:09:00 AM EDT [facility] 1 Clinical Report - Nurses [facility] Emergency Department [address] [place] [address] Phone #: ext- [phone] 10/09/2019 02:08 Patient: BRUNA LEE Sex: F : 1985 Age: 34yTRIAGEHistorian: EMS and patient.Triage time: 02:08 10/09/2019.Chief Complaint: SORE THROAT.This started just prior to arrival. The patient has had a hoarse voice.Treatment QUILL LAYER:Took Tylenol. (arthritis kind).EMS Treatment QUILL LAYER:See EMS report.SEPSIS SCREEN: SIRS Screen: heart rate greater than 90. Sepsis Screen negative. No suspected orconfirmed signs of infection present. --02:14 10/09/19 Meme Maldonado R.N.02:11 10/09/19. BP: 130/86. MAP: 100. HR: 105. RR: 18. O2 saturation: 100%. Temp: 98.5 F. Pain levelnow: 12/05. --02:14 10/09/19 Meme Maldonado R.N.Treatment QUILL LAYER:(Seen at [facility] for this issue within the last [...] Maldonado R.N.AllergiesPenicillins.(hives) 2 Clinical Report - Nurses [facility] Emergency Department [address] [place] [address] Phone #: ext- [phone] 10/09/2019 02:08 Patient: [...] Dental decay. 3 Clinical Report - Nurses [facility] Emergency Department [address] [place] [address] Phone #: ext- [phone] 10/09/2019 02:08 Patient: BRUNA LEE Sex: F [...] Patient verbalized understanding. Written instructions provided in Filipino. The patient was discharged by the physician. [...] rce(s) Supporting Document(s) ID Date Data Source [id number] 10/09/2019 02:09:00 AM EDT [facility] 1 Clinical Report - Physicians/Mid Levels [facility] Emergency Department [address] [place] [address] Phone #: ext- [phone] 10/09/2019 02:08 Patient: [...] (per EMS, pt is well known to [facility] ER for multiple ER visits for multiple somatic and psychiatric complaints; tonight, she complains of sore throat, hoarse voice, bugs on her skin, etc.; pt has therapist in [place]). Similar symptoms previously. Patient has had similar [...] Hernia Repair. Medications: 2 Clinical Report - Physicians/[facility] Emergency Department [address] [place] [address] Phone #: ext- [phone] 10/09/2019 02:08 Patient: [...] PROCEDURAL CONTROL VALID ){ KIT LOT # [id number] ){ KIT EXP DATE [id number] )The 3 Clinical Report - Physicians/Mid Levels [facility] Emergency Department [address] [place] [address] Phone #: ext- [phone] 10/09/2019 02:08 Patient: [...] was requested by: Evonne Anne Reference #: [id number] Others' Prescriptions Patient Name: Bruna LeeBirth Date: 1985 Address: [address] [place] [address] [id number]: Female Rx Written Rx Dispensed Drug Quantity [...] film 56 28 MoehJose J hopson MD [facility] 05/01/2019 05/01/2019 buprenorphine-naloxone [...] 8 mg-2 mg sl film 56 28 AkJose J dumont MD Medicaid [facility] 4 Clinical Report - Physicians/Mid Levels [facility] Emergency Department [address] [place] [address] Phone #: xic- [phone] 10/09/2019 02:08 Patient: BRUNA LEE Sex: F : 1985 Age: 34y 11/12/2018 11/12/2018 suboxone 8 mg-2 mg sl film 56 28 Jose J Mao MD Medicaid [facility] 10/15/2018 10/15/2018 suboxone 8 mg-2 mg sl film 56 28 [facility] [...] unknown*. 5 Clinical Report - Physicians/Mid Levels [facility] Emergency Department [address] [place] [address] Phone #: ext- [phone] 10/09/2019 02:08 Patient: [...] rce(s) Supporting Document(s) ID Date Data Source [id number] 10/09/2019 03:02:00 AM EDT [facility] Name Value Range Interpretation Code Description Data [facility] rce(s) Supporting Document(s) RAPID STREP NEGATIVE NORMAL: NEGATIVE [facility] RAPID STREP REENTER NEGATIVE NORMAL: NEGATIVE [facility] { PROCEDURAL CONTROL VALID ){ KIT LOT # [id number] ){ KIT EXP DATE [id number] )The Strep [...] basis for treatment. ID Date Data Source [id number] 09/22/2019 02:34:28 PM EDT [facility] [...] (ER) or urgent care clinic? Yes - [facility] Have you seen another healthcare provider? Yes - [facility] Have you seen a dentist? NoIntake [...] this is different. Sees [facility] health [facility] for her mental health issues (schizophrenia) and feels that this is going well.HPI performed by: Francesco Ritchie MD, September 22, 2019 2:52 PMTransitions of Care InboundProblem ReviewProblem List was reviewed and/or updated during this visit.Medication Reconciliation & ReviewMedication List was reviewed and/or updated during this visit, including review of any pziu-hxv-zjanmaz medications, herbal therapies, and/or supplements.Allergy ReviewAllergy List [...] Plan Problems:Added: Hematemesis - cause unknown (ICD-578.0) (YJJ48-G12.0) Assessment: Instructions: Currently asymptomatic but worrisome enough to warrant further workup.Avoid NSAIDs and refer to GI.Return to ER if this occurs again.Assessed:Peripheral neuropathy (ICD-356.9) (WFD37-C41.9) Assessment: Instructions: I am not sure where [...] (Critical)Orders:Adult - Ofc Vst, EST, Level III [CPT-71582] Gastroenterology Consult [CPT-14527] Medications:GABAPENTIN 400 MG ORAL CAPSULE (GABAPENTIN) take one tablet by mouth three times daily as needed #90[Capsule] x 0 Route:ORAL Entered and Authorized by: Francesco Ritchie MD Method used: Electronically to [facility] (retail) [address] [place] [address] Note to Pharmacy: Route: ORAL; Indications: PERIPHERAL NEUROPATHY;BILATERAL CARPAL TUNNEL SYNDROME RxID: [id number] 1000 MG ORAL TABLET (LEVETIRACETAM) 1 pill po bid #60[Tablet] x 0 Route:ORAL Entered and Authorized by: Francesco Ritchie MD Method used: Electronically to [facility] (retail) [address] [place] [address] Note to Pharmacy: Route: ORAL; RxID: [id number] SUCCINATE 50 MG ORAL TABLET (SUMATRIPTAN SUCCINATE) take one tab po at the onset of headache. may repeat dose x one if no releif after two hours. #15[Tablet] x 0 Entered and Authorized by: Francesco Ritchie MD Method used: Electronically to [facility] (retail) [address] [place] [address] RxID: [id number] OMEPRAZOLE 20 MG ORAL TABLET DELAYED RELEASE (OMEPRAZOLE) One tablet by mouth every day #30[Tablet] x 2 Route:ORAL Entered and Authorized by: Francesco Ritchie MD Method used: Electronically to [facility] (retail) [address] [place] [address] Note to Pharmacy: Route: ORAL; RxID: [id number] DOXYCYCLINE MONOHYDRATE 100 MG ORAL TABLET (DOXYCYCLINE MONOHYDRATE) take one tablet by mouth twice daily x 5 days #10[Tablet] x 0 Route:ORAL Entered by: Demetria Elliott MA Authorized by: Mavis Lester ORDERLY Method used: Electronically to [facility] (retail) [facility] [place] [address] RxID: [id number] signed by Francesco Ritchie MD on 09/22/2019 at 5:42 PM Name Value Range Interpretation Code Description Data [place] rce(s) Supporting Document(s) ID Date Data Source [id number] 09/10/2019 10:45:00 PM EDT [facility] Name Value Range Interpretation Code Description Data [place] rce(s) Supporting Document(s) BG FASTING 96 mg/dL 70-100 N [facility] ID Date Data Source [id number] 09/10/2019 10:45:00 PM EDT [facility] Name Value Range Interpretation Code Description Data [place] rce(s) Supporting Document(s) HCT 37.4 % 36.0-47.0 N [facility] HGB 12.1 g/dL 12.0-15.5 [facility] MCH 32.4 G/DL pg 32.0-36.5 N [facility] MCHC 30.2 PG % 27.0-33.0 [facility] PLATELETS 244 10 10*3/mm3 150-450 N [facility] RBC 4.01 10 10*6/mm3 4.00-5.40 [facility] RDW 12.8 % 11.5-14.5 N [facility] WBC TOTAL 4.9 4.0-10.0 [facility] ID Date Data Source [id number] 05/20/2019 11:42:55 AM EDT [facility] [...] you seen another healthcare provider? Yes - [facility] Have you seen a dentist? NoRate [...] during this visit, including review of any dwan-yru-ugoyyli medications, herbal therapies, and/or supplements.Allergy ReviewAllergy List [...] Problems:Added: Phlebitis and thrombophlebitis of unspecified site (PWU82-J92.9): right AC and right tibia Assessment: Instructions: May continue warm compresses 3-4 times daily as needed. Please try to keep extremities elevated. We have sent a prescription to your pharmacy today. Please take medication as prescribed. Please report any major side effects.Phlebitis and thrombophlebitis of unspecified site (QTC07-B34.9): right AC and right tibia Assessment: right foot and right forearmAssessed:Tobacco use (ICD-305.1) (XHU29-P88.0) Assessment: Instructions: Please continue to try to quit smoking.Health Screening (ICD-V70.0) (WHV09-P22.9) Assessment: Instructions: Fasting labs ordered for you today. Please return prior to your next visit to have labs drawn. Please fast for 8-10 hours prior.Substance abuse (ICD-305.90) (WSZ92-Z02.10) Assessment: Instructions: Please try to avoid the [...] (Critical)BACTRIM (Critical)* SULFA ANTIBIOTICS (Critical)Orders:COMP METABOLIC PANEL [CPT-87862] CBC W/DIFF [CPT- 34515] HgBA1c [CPT-95347] LIPID PANEL [CPT-02646] TSH [CPT-77042] T-4 free [CPT- 66489] Vitamin D 250H Unspecified [CPT-40053] URINALYSIS [CPT-78341] VITAMIN B- 12 [CPT-55990] Folate (Folic Acid Serum) [CPT-04770] IRON [CPT-79066] Adult - Ofc Vst, EST, Level III [CPT-15703] Follow-Up Return to clinic: 2-3 weeks for follow up Additional Follow-Up: If symptoms worsen, please return to clinic or the ERClinical Visit Summary CompletedMedications:DOXYCYCLINE MONOHYDRATE 100 MG ORAL TABLET (DOXYCYCLINE MONOHYDRATE) take one tablet by mouth twice daily x 5 days #10[Tablet] x 0 Route:ORAL Entered and Authorized by: Mavis DIEGO Method used: Electronically to [facility] (retail) [address] [place] [address] Note to Pharmacy: Route: ORAL; Indications: PHLEBITIS AND THROMBOPHLEBITIS OF UNSPECIFIED SITE RxID: [id number] signed by Mavis DIEGO on 05/24/2019 at 11:37 PM ____ Name Value Range Interpretation Code Description Data [place] rce(s) Supporting Document(s) Procedure Social History Code Duration Value Status Description Data Source(s ) Smoking 03/30/2020 12:00:00 AM EST Current Smoker completed Curre nt Smoker eCW1 ([facility]) Smoking 03/30/2020 12:00:00 AM EST Current Smoker completed Curre nt Smoker eCW1 ([facility]) Smoking 03/30/2020 12:00:00 AM EST Current Smoker completed Curre nt Smoker eCW1 ([facility]) Smoking 03/30/2020 12:00:00 AM EST Current Smoker completed Curre nt Smoker eCW1 ([facility]) Smoking 03/30/2020 12:00:00 AM EST Current Smoker completed Curre nt Smoker eCW1 ([facility]) Smoking 03/30/2020 12:00:00 AM EST Current Smoker completed Curre nt Smoker eCW1 ([facility]) Smoking 03/30/2020 12:00:00 AM EST Current Smoker completed Curre nt Smoker eCW1 ([facility]) Smoking 03/01/2020 12:00:00 AM EST Current Smoker completed Curre nt Smoker eCW1 ([facility]) Smoking 03/01/2020 12:00:00 AM EST Current Smoker completed Curre nt Smoker eCW1 ([facility]) Smoking 03/01/2020 12:00:00 AM EST Current Smoker completed Curre nt Smoker eCW1 ([facility]) Smoking 02/18/2020 12:00:00 AM EST Current Smoker completed Curre nt Smoker eCW1 ([facility]) Smoking 12/24/2019 12:00:00 AM EDT Current Smoker completed Curre nt Smoker eCW1 ([facility]) Smoking 12/24/2019 12:00:00 AM EDT Current Smoker completed Curre nt Smoker eCW1 ([facility]) Smoking 12/24/2019 12:00:00 AM EDT Current Smoker completed Curre nt Smoker eCW1 ([facility]) Smoking 12/24/2019 12:00:00 AM EDT Current Smoker completed Curre nt Smoker eCW1 ([facility]) Smoking 12/24/2019 12:00:00 AM EDT Current Smoker completed Curre nt Smoker eCW1 ([facility]) Smoking 12/24/2019 12:00:00 AM EDT Current Smoker completed Curre nt Smoker eCW1 ([facility]) Smoking 12/24/2019 12:00:00 AM EDT Current Smoker completed Curre nt Smoker eCW1 ([facility]) Smoking 10/31/2019 12:00:00 AM EDT Current Smoker completed Curre nt Smoker eCW1 ([facility]) Smoking 10/31/2019 12:00:00 AM EDT Current Smoker completed Curre nt Smoker eCW1 ([facility]) Smoking 10/31/2019 12:00:00 AM EDT Current Smoker completed Curre nt Smoker eCW1 ([facility]) Vital Signs ID Date Data Source UNK Name Value Range Interpretation Code Description Data Source(s) Oxygen saturation in Arterial blood by Pulse oximetry 98 % 98 % eCW1 ([facility]) Respiratory rate 18 /min 18 /min eCW1 ([facility]) Heart rate 119 /min 119 /min eCW1 ([facility]) Body mass index (BMI) [Ratio] 35.74 kg/m2 35.74 kg/m2 eCW1 ([facility]) Body weight 183.0 [lb_av] 183.0 [lb_av] eCW1 ([facility]) Body height 60.0 [in_i] 60.0 [in_i] eCW1 ([facility]) Oxygen saturation in Arterial blood by Pulse oximetry 99 % 99 % eCW1 ([facility]) Respiratory rate 18 /min 18 /min eCW1 ([facility]) Heart rate 93 /min 93 /min eCW1 ([facility]) Body mass index (BMI) [Ratio] 35.27 kg/m2 35.27 kg/m2 eCW1 ([facility]) Body weight 180.6 [lb_av] 180.6 [lb_av] eCW1 ([facility]) Body height 60 [in_i] 60 [in_i] eCW1 ([facility]) Oxygen saturation in Arterial blood by Pulse oximetry 97 % 97 % eCW1 ([facility]) Respiratory rate 18 /min 18 /min eCW1 ([facility]) Heart rate 89 /min 89 /min eCW1 ([facility]) Body mass index (BMI) [Ratio] 36.48 kg/m2 36.48 kg/m2 eCW1 ([facility]) Body weight 186.8 [lb_av] 186.8 [lb_av] eCW1 ([facility]) Body height 60 [in_i] 60 [in_i] eCW1 ([facility]) Body height 60 [in_i] 60 [in_i] eCW1 ([facility]) Oxygen saturation in Arterial blood by Pulse oximetry 98 % 98 % eCW1 ([facility]) Respiratory rate 18 /min 18 /min eCW1 ([facility]) Heart rate 86 /min 86 /min eCW1 ([facility]) Body temperature 98.0 [degF] 98.0 [degF] eCW1 ( [facility]) Body mass index (BMI) [Ratio] 32.10 kg/m2 32.10 kg/m2 eCW1 ([facility]) Body weight 164.4 [lb_av] 164.4 [lb_av] eCW1 ([facility]) Oxygen saturation in Arterial blood by Pulse oximetry 99 % 99 % eCW1 ([facility]) Respiratory rate 18 /min 18 /min eCW1 ([facility]) Heart rate 100 /min 100 /min eCW1 ([facility]) Body temperature 98.7 [degF] 98.7 [degF] eCW1 ( [facility]) Body mass index (BMI) [Ratio] 30.70 kg/m2 30.70 kg/m2 eCW1 ([facility]) Body weight 157.2 [lb_av] 157.2 [lb_av] eCW1 ([facility]) Body height 60 [in_i] 60 [in_i] eCW1 ([facility]) ID Date Data Source [id number] 12/26/2019 01:56:00 PM EDT [facility] Name Value Range Interpretation Code Description Data Source(s) WEIGHT 72.3 kilos 72.3 kilos [facility] HEIGHT 152.4 centimeters 152.4 centimeters [facility] WEIGHT 75 kilos 75 kilos [facility] HEIGHT 152.4 centimeters 152.4 centimeters [facility] ID Date Data Source [id number] 12/10/2019 06:07:00 AM EDT [facility] Name Value Range Interpretation Code Description Data Source(s) WEIGHT 68 kilos 68 kilos [facility] HEIGHT 152.4 centimeters 152.4 centimeters [facility] WEIGHT 68.4 kilos 68.4 kilos [facility] HEIGHT 152.4 centimeters 152.4 centimeters [facility] ID Date Data Source [id number] 12/08/2019 01:43:00 PM EDT [facility] Name Value Range Interpretation Code Description Data Source(s) WEIGHT 75 kilos [facility] kilos [facility] HEIGHT 152.4 centimeters 152.4 centimeters [facility] ID Date Data Source [id number] 12/08/2019 01:43:00 PM EDT [facility] Name Value Range Interpretation Code Description Data Source(s) WEIGHT 74 kilos 74 kilos [facility] HEIGHT 160.02 centimeters 160.02 centimeter [facility] Patient Treatment Plan of Care Planned Activity Planned Date Details Description Data Source (s) Doxepin Hydrochloride 25 MG Oral Capsule 03/09/2020 12:00:00 AM EST eCW1 ([facility]) Doxepin Hydrochloride 25 MG Oral Capsule 03/09/2020 12:00:00 AM EST eCW1 ([facility]) Doxepin Hydrochloride 25 MG Oral Capsule 03/09/2020 12:00:00 AM EST eCW1 ([facility]) Clonidine Hydrochloride 0.2 MG Oral Tablet 12/24/2019 12:00:00 AM E DT eCW1 ([facility]) Clonidine Hydrochloride 0.2 MG Oral Tablet 12/24/2019 12:00:00 AM E DT eCW1 ([facility]) Clonidine Hydrochloride 0.2 MG Oral Tablet 12/24/2019 12:00:00 AM E DT eCW1 ([facility]) Clonidine Hydrochloride 0.2 MG Oral Tablet 12/24/2019 12:00:00 AM E DT eCW1 ([facility]) Clonidine Hydrochloride 0.2 MG Oral Tablet 12/24/2019 12:00:00 AM E DT eCW1 ([facility]) Clonidine Hydrochloride 0.2 MG Oral Tablet 12/24/2019 12:00:00 AM E DT eCW1 ([facility]) Clonidine Hydrochloride 0.2 MG Oral Tablet 12/24/2019 12:00:00 AM E DT eCW1 ([facility]) lisdexamfetamine dimesylate 50 MG Oral Capsule [Vyvans e] 11/04/2019 12:00:00 AM EDT eCW1 ([facility]) Clonazepam 0.5 MG Oral Tablet 11/04/2019 12:00:00 AM EDT eCW1 ([facility]) Citalopram 20 MG Oral Tablet [Celexa] 11/04/2019 12:00:00 AM EDT eCW1 ([facility]) Risperidone 3 MG Oral Tablet [Risperdal] 07/07/2019 12:00:00 AM EDT eCW1 ([facility]) Risperidone 3 MG Oral Tablet [Risperdal] 07/07/2019 12:00:00 AM EDT eCW1 ([facility]) Risperidone 2 MG Oral Tablet [Risperdal] 07/07/2019 12:00:00 AM EDT eCW1 ([facility]) Risperidone 2 MG Oral Tablet [Risperdal] 07/07/2019 12:00:00 AM EDT eCW1 ([facility]) Risperidone 3 MG Oral Tablet [Risperdal] 07/07/2019 12:00:00 AM EDT eCW1 ([facility])
[2020-04-20 17:45] VITALS: BP 149/90
[2020-04-20] MEDS ORDERED: PERI0.126 PO (20:59)
== END 2020-04-20 17:56 | disposition home or self-care (01) ==
LOC: M ED 16:40
DX: F43.0 Acute stress reaction (principal); F25.9 Schizoaffective disorder, unspecified; F32.9 Major depressive disorder, single episode, unspecified; B18.2 Chronic viral hepatitis C; F15.10 Other stimulant abuse, uncomplicated; F17.200 Nicotine dependence, unspecified, uncomplicated

== ENCOUNTER 2020-04-20 19:29 | Emergency (ER) | payer OTHER ==
[~2020-04-20] VITALS: Ht 152.4 cm; Wt 77.0 kg
[2020-04-20] MEDS ORDERED: diphenhydrAMINE 50MG/ML VIAL (J1200) IM STA (19:47)
[2020-04-20] MEDS ORDERED: GI COCKTAIL 50ML BTL(HYOSCYAMINE/MAALOX/LIDOCAINE VISCOUS)(1:3:1) PO ONE (20:00)
--- NOTE | 2020-04-20 20:18 | REP ---
INDICATION: neck pain; r/o FB. COMPARISON: Comparison radiographs May 11, 2018.. TECHNIQUE: AP and lateral views. Three views presented. FINDINGS: Retropharyngeal soft tissues are not widened. Epiglottis is normal in appearance. Glottic and subglottic airway are unremarkable. No opaque foreign body is seen. Mild degenerative disc narrowing is seen at C4-5. No acute bony abnormality is seen. IMPRESSION: No opaque foreign body or mass effect seen. <Electronically signed by Praveen Her > 04/20/202013
[2020-04-20 20:30] VITALS: BP 138/70
[2020-04-20] MEDS ORDERED: PERI0.126 PO (20:59)
--- OUTSIDE RECORDS SUMMARY | 2020-04-20 21:20 | CCD ---
Author Author [facility] Organization [facility] Address Unknown Phone Unavailable Care Team Providers Care Food And Beverage Assistant Manager Name Role Phone Kori FLORES Unavailable Unavailable [...] Jeremie HOGAN MD Unavailable Unavailable JESICA, @ [facility] Unavailable Unavailable BEHZAD HOGAN MD Unavailable Unavailable Ching, Reginah W Kassidy CONSUMER ATTORNEY-C Unavailable Unavailabl e Ching, Reginah W Kassidy CONSUMER ATTORNEY-C Unavailable Unavailabl e Ching, Reginah W Kassidy CONSUMER ATTORNEY-C Unavailable Unavailabl e Ching, Reginah W Kassidy CONSUMER ATTORNEY-C Unavailable Unavailabl e Ching, Reginah W Kassidy CONSUMER ATTORNEY-C Unavailable Unavailabl e Ching, Reginah W Kassidy CONSUMER ATTORNEY-C Unavailable Unavailabl e Ching, Reginah W Kassidy CONSUMER ATTORNEY-C Unavailable Unavailabl e Ching, Reginah W Kassidy CONSUMER ATTORNEY-C Unavailable Unavailabl e Ching, Reginah W Kassidy CONSUMER ATTORNEY-C Unavailable Unavailabl e Ching, Reginah W Kassidy CONSUMER ATTORNEY-C Unavailable Unavailabl e Ching, Reginah W Kassidy CONSUMER ATTORNEY-C Unavailable Unavailabl e Ching, Reginah W Kassidy CONSUMER ATTORNEY-C Unavailable Unavailabl e Ching, Reginah W Kassidy CONSUMER ATTORNEY-C Unavailable Unavailabl e Ching, Reginah W Kassidy CONSUMER ATTORNEY-C Unavailable Unavailabl e Ching, Reginah W Kassidy CONSUMER ATTORNEY-C Unavailable Unavailabl e Ching, Reginah W Kassidy CONSUMER ATTORNEY-C Unavailable Unavailabl e Ching, Elijah Yi CONSUMER ATTORNEY-C Unavailable Unavailabl e Ching, Elijah Yi CONSUMER ATTORNEY-C Unavailable Unavailabl e Ching, Elijah Yi CONSUMER ATTORNEY-C Unavailable Unavailabl e Ching, Elijah Yi CONSUMER ATTORNEY-C Unavailable Unavailabl e Ching, Elijah Yi CONSUMER ATTORNEY-C Unavailable Unavailabl e Ching, Elijah Yi CONSUMER ATTORNEY-C Unavailable Unavailabl e Ching, Elijah Yi CONSUMER ATTORNEY-C Unavailable Unavailabl e Ching, Elijah Yi CONSUMER ATTORNEY-C Unavailable Unavailabl e Ching, Elijah Yi CONSUMER ATTORNEY-C Unavailable Unavailabl e Ching, Elijah Yi CONSUMER ATTORNEY-C Unavailable Unavailabl e Ching, Elijah Yi CONSUMER ATTORNEY-C Unavailable Unavailabl e Ching, Elijah Yi CONSUMER ATTORNEY-C Unavailable Unavailabl e Ching, Elijah Yi CONSUMER ATTORNEY-C Unavailable Unavailabl e Ching, Elijah Yi CONSUMER ATTORNEY-C Unavailable Unavailabl e Ching, Elijah Yi CONSUMER ATTORNEY-C Unavailable Unavailabl e Ching, Elijah Yi CONSUMER ATTORNEY-C Unavailable Unavailabl e Lino Marie MD Unavailable [...] Unavailable Unavailable Lino Marie MD Unavailable Unavailable DIOGNEES BUENO MD Unavailable Unavailable Ford, M Shira [...] Unavailable Unavailable Jeremie BUENO MD Unavailable Unavailable BYA RIOS MD Unavailable Unavailable NON, PHYSICIAN STAFF [...] Unavailable ONDINA RAMIREZ MD Unavailable Unavailable ONDINA RMAIREZ MD Unavailable Unavailable ONDINA RAMIREZ MD Unavailable Unavailable ONDINA RAMIREZ MD Unavailable Unavailable ONDINA RAMIREZ MD Unavailable Unavailable ONDINA RAMIREZ MD Unavailable Unavailable BROWN, L JANE Unavailable Unavailable DESJARLAIS, KAROLYN VICE PRESIDENT EDUCATION Unavailable Unavailable DESJARLAIS, KAROLYN VICE PRESIDENT EDUCATION Unavailable Unavailable DESJARLAIS, KAROLYN VICE PRESIDENT EDUCATION Unavailable Unavailable DESJARLAIS, KAROLYN VICE PRESIDENT EDUCATION Unavailable Unavailable DESJARLAIS, KAROLYN VICE PRESIDENT EDUCATION Unavailable Unavailable DESJARLAIS, KAROLYN VICE PRESIDENT EDUCATION Unavailable Unavailable DESJARLAIS, KAROLYN VICE PRESIDENT EDUCATION Unavailable Unavailable DESJARLAIS, KAROLYN VICE PRESIDENT EDUCATION Unavailable Unavailable DESJARLAIS, KAROLYN VICE PRESIDENT EDUCATION Unavailable Unavailable MAHESH RECINOS Unavailable Unavailable Lester, Mavis CONSUMER ATTORNEY CONSUMER ATTORNEY Unavailable Unavailable Lester, A Mavis CONSUMER ATTORNEY Unavailable Unavailable Lester, A Mavis CONSUMER ATTORNEY Unavailable Unavailable Lester, A Mavis CONSUMER ATTORNEY Unavailable Unavailable Lester, A Mavis CONSUMER ATTORNEY Unavailable Unavailable Lester, A Mavis CONSUMER ATTORNEY Unavailable Unavailable Lester, A Mavis CONSUMER ATTORNEY Unavailable Unavailable Lseter, A Mavis CONSUMER ATTORNEY Unavailable Unavailable Lester, A Mavis CONSUMER ATTORNEY Unavailable Unavailable Lester, A Mavis CONSUMER ATTORNEY Unavailable Unavailable Lester, A Mavis CONSUMER ATTORNEY Unavailable Unavailable Lester, A Mavis CONSUMER ATTORNEY Unavailable Unavailable Lester, A Mavis CONSUMER ATTORNEY Unavailable Unavailable Lester, A Mavis CONSUMER ATTORNEY Unavailable Unavailable Lester, A Mavis CONSUMER ATTORNEY Unavailable Unavailable Lester, A Mavis CONSUMER ATTORNEY Unavailable Unavailable Lester, A Mavis CONSUMER ATTORNEY Unavailable Unavailable Lester, A Mavis CONSUMER ATTORNEY Unavailable Unavailable Lester, A Mavis CONSUMER ATTORNEY Unavailable Unavailable Lester, A Mavis CONSUMER ATTORNEY Unavailable Unavailable Lester, A Mavis CONSUMER ATTORNEY Unavailable Unavailable Lester, A Mavis CONSUMER ATTORNEY Unavailable Unavailable Lester, A Mavis CONSUMER ATTORNEY Unavailable Unavailable Lester, A Mavis CONSUMER ATTORNEY Unavailable Unavailable Lester, A Mavis CONSUMER ATTORNEY Unavailable Unavailable Lester, A Mavis CONSUMER ATTORNEY Unavailable Unavailable Lester, A Mavis CONSUMER ATTORNEY Unavailable Unavailable Lester, A Mavis CONSUMER ATTORNEY Unavailable Unavailable Lester, A Mavis CONSUMER ATTORNEY Unavailable Unavailable BLUM, KATRIN Unavailable Unavailable Re-disclosure [...] protected by Article 27-F of the [facility] Public Health law. If you continue you may have access to information: Regarding HIV / AIDS; Provided by facilities licensed or operated by the [facility] Office of Mental Health; or Provided by the [facility] Office for People With Developmental Disabilities. If such information is present, then the following [facility] mandated warning applies: This information has [...] law may result in a fine or alf sentence or both. A general authorization for the release of medical or other information is NOT sufficient authorization for further disc losure. Allergies and Adverse Reactions Type Description Substance Reaction Status Data Source(s ) Drug allergy Drug allergy AMOXICLIIN SWELLING, HIVES R [facility] Drug allergy olanzapine ol[facility]apine [facility] Drug allergy trimethoprim trimethoprim "BLISTERS IN MOUTH" [facility] Drug allergy sulfamethoxazole sulfamethoxazole "BLISTERS IN MOUTH" [facility] Drug allergy haloperidol haloperidol [facility] Drug allergy Sulfa (Sulfonamide Antibiotics) Sulfa (Sulfonami de Antibiotics) "BLISTERS IN MOUTH" [facility] Drug allergy Penicillins Penicillins SWELLING, HIVES SV R er [facility] Encounters Encounter Providers Location Date Indications Data Source(s ) Outpatient Attender: JANE EDWARD 04/20/2020 03:00:00 PM [facility] 04/16/2020 12:00:00 AM EST eCW1 ([facility]) Outpatient Attender: FAHAD MOONEY 04/15/2020 09:45:0 0 AM [facility]patient [facility] 04/12/2020 12:00:00 AM EST eCW1 ([facility]) Outpatient [facility] 04/08/2020 12:00:00 AM EST eCW1 ([facility]) Outpatient [facility] 04/08/2020 12:00:00 AM EST eCW1 ([facility]) Outpatient [facility] 04/08/2020 12:00:00 AM EST eCW1 ([facility]) Outpatient [facility] 04/05/2020 12:00:00 AM EST eCW1 ([facility]) Outpatient Attender: NATHAN PAUL PA-C 03/30/2020 10:30:00 AM [facility] Outpatient Attender: Shira Youngblood PA-C 03/30/2020 10:18 :00 AM [facility]patient [facility] 03/30/2020 12:00:00 AM EST eCW1 ([facility]) Outpatient Attender: JANE EDWARD 03/23/2020 02:00:00 PM [facility] Attender: JANE EDWARD 03/17/2020 10:30:00 AM [facility] Attender: JANE EDWARD 03/11/2020 04:00:00 PM E [facility] Attender: FAHAD MOONEY 03/11/2020 06:30:0 0 AM [facility] Outpatient Attender: KAROLYN VAN NP 03/09/2020 03: 40:00 PM [facility] Outpatient [facility] 03/03/2020 12:00:00 AM EST eCW1 ([facility]) Outpatient Attender: Shira Fernándezrer: Shira Youngblood PA-C EMERGENCY ROOM-LAB 03/01/2020 04:49:00 PM EST - 03/01/2020 04:49:00 PM [facility] Outpatient Attender: Shira Youngblood PA-C 03/01/2020 03:45 :00 PM [facility] Outpatient [facility] 03/01/2020 12:00:00 AM EST eCW1 ([facility]) Outpatient [facility] 03/01/2020 12:00:00 AM EST eCW1 ([facility]) Outpatient Attender: KAROLYN VAN NP 02/18/2020 02: 40:00 PM [facility] Outpatient Attender: Kassidy SERRANO 02/18/2020 10:00:0 0 AM [facility] Outpatient [facility] 02/18/2020 12:00:00 AM EST eCW1 ([facility]) Outpatient [facility] 02/10/2020 12:00:00 AM EST eCW1 ([facility]) Outpatient [facility] 02/03/2020 12:00:00 AM EST eCW1 ([facility]) Outpatient [facility] 01/14/2020 12:00:00 AM EST eCW1 ([facility]) Outpatient [facility] 01/06/2020 12:00:00 AM EST eCW1 ([facility]) Outpatient Attender: JOHNATHON PATEL 01/02/2020 10:06:00 A M [facility] Outpatient [facility] 01/02/2020 12:00:00 AM EST eCW1 ([facility]) Outpatient Attender: JANE EDWARD 01/01/2020 02:30:00 PM [facility] Attender: KAROLYN VAN NP 12/24/2019 11: 00:00 AM EDT [facility] Outpatient Attender: Shira Youngblood PA-C 12/24/2019 08:24 :00 AM EDT [facility] Outpatient [facility] 12/24/2019 12:00:00 AM EDT eCW1 ([facility]) Outpatient Attender: JANE EDWARD 12/23/2019 01:54:00 PM E [facility] Outpatient [facility] 12/23/2019 12:00:00 AM EDT eCW1 ([facility]) Outpatient Attender: Mavis DIEGO 12/12/2019 11:3 5:02 AM EDT [facility] Outpatient Attender: JANE EDWARD 12/11/2019 03:00:00 PM E [facility] Outpatient [facility] 12/09/2019 12:00:00 AM EDT eCW1 ([facility]) Outpatient Attender: Mavis PATEL 12/05/2019 01:2 6:01 PM EDT [facility] Inpatient Attender: PRERNA RIOS MDAdmitter: PRERNA Hopson MD ER-3RD 12/05/2019 10:08:00 AM EDT - 12/10/2019 01:07:00 PM EDT [facility] Patient discharged. Outpatient Attender: NATHAN PAUL PA-C 12/05/2019 09:03:00 AM [facility] Admission cancelled. Disregard status an d admitted date. Inpatient Attender: BEHZAD HOGAN MD Attender: BEHZAD HOGAN MDAttender: DIOGENES BUENO MDAttender: DIOGENES BUENO MDAdmitter: BEHZAD HOGAN MD ER-ICU 12/04/2019 11:06:00 PM EDT - 12/05/2019 10:03:00 AM EDT [facility] Patient discharged. Emergency Attender: GINGER Salaser: Melissa Youngblood PA-C EMERGENCY ROOM-ER 12/04/2019 04:21:00 PM EDT - 12/04/2019 08:40:00 PM EDT [facility] Patient discharged. Outpatient Attender: KAROLYN VAN NP 12/04/2019 03: 11:00 PM EDT [facility] Outpatient Attender: Mavis DIEGO FP 11/29/2019 07:0 4:03 PM EDT [facility] Outpatient Attender: JOHNATHON DIEGO FP 11/29/2019 07:04:01 P M EDT [facility] Outpatient Attender: Mavis DIEGO FP 11/24/2019 12:2 9:00 PM EDT [facility] Emergency Attender: EVONNE Garzasultant: STAFF NON 11/07/2019 12:19:00 AM EDT - 11/07/2019 04:20:00 AM EDT [facility] Patient discharged. Outpatient [facility] 11/07/2019 12:00:00 AM EDT eCW1 ([facility]) Outpatient Attender: Mavis DIEGO FP 11/04/2019 02:2 6:02 PM EDT [facility] Outpatient Attender: KAROLYN VAN NP 11/04/2019 11: 40:00 AM EDT [facility] Outpatient Attender: Mavis DIEGO FP [...] Youngblood PA-C 10/31/2019 09:06 :00 AM EDT [facility] Outpatient [facility] 10/31/2019 12:00:00 AM EDT eCW1 ([facility]) Outpatient Attender: JANE EDWARD 10/27/2019 11:00:00 AM E [facility] Outpatient Attender: KAROLYN VAN NP 10/21/2019 03: 20:00 PM EDT [facility] Emergency Attender: EVONNE Pottsltant: STAFF NON 10/09/2019 02:09:00 AM EDT - 10/09/2019 03:44:00 AM EDT [facility] Patient discharged. Outpatient Attender: KATRIN BLUM 10/06/2019 09:37:00 AM ED T [facility] Outpatient Attender: Mavis DIEGO FP 09/25/2019 04:0 9:01 PM EDT [facility] Outpatient Attender: Mavis DIEGO FP 09/25/2019 04:0 7:59 PM EDT [facility] Outpatient Attender: JOHNATHON DIEGO FP 09/23/2019 10:31:00 A M EDT [facility] Outpatient Attender: JOHNATHON DIEGO FP 09/23/2019 10:30:01 A M EDT [facility] Outpatient Attender: JOHNATHON DIEGO FP 09/23/2019 12:02:09 A M EDT [facility] Outpatient Attender: JOHNATHON DIEGO FP 09/22/2019 05:44:02 P M EDT [facility] Outpatient Attender: Mavis DIEGO FP 09/22/2019 05:4 2:59 PM EDT [facility] Outpatient Attender: JOHNATHON DIEGO FP 09/22/2019 02:38:00 P M EDT [facility] Outpatient Attender: Mavis DIEGO FP 09/22/2019 12:0 5:01 PM EDT [facility] Outpatient Attender: JOHNATHON DIEGO FP 09/22/2019 07:56:01 A M EDT [facility] Outpatient Attender: Mavis DIEGO FP 09/16/2019 05:0 8:02 AM EDT [facility] Outpatient Attender: Mavis DIEGO FP 09/14/2019 05:1 9:00 PM EDT [facility] Outpatient Attender: JOHNATHON DIEGO FP 09/14/2019 05:19:00 P M EDT [facility] Outpatient Attender: Mavis DIEGO FP 09/12/2019 11:5 3:00 AM EDT [facility] Outpatient Attender: Mavis DIEGO FP 09/10/2019 11:0 6:01 PM EDT [facility] Outpatient Attender: JOHNATHON DIEGO FP 09/10/2019 11:06:01 P M EDT [facility] Outpatient Referrer: Femi Marie MD 08/15/2019 05:44:00 A M EDT [facility] Outpatient Attender: Mavis DIEGO FP 08/06/2019 09:5 2:01 AM EDT [facility] Outpatient Attender: JOHNATHON DIEGO FP 08/05/2019 07:41:16 P M EDT [facility] Outpatient Attender: Mavis DIEGO FP 08/05/2019 09:2 3:03 AM EDT [facility] Outpatient Attender: JOHNATHON DIEGO FP 08/05/2019 09:23:01 A M EDT [facility] Outpatient Attender: KATRIN BLUM 08/04/2019 09:42:00 AM ED [facility] Outpatient Attender: Mavis DIEGO FP 08/01/2019 10:3 1:00 AM EDT [facility] Outpatient Attender: Mavis DIEGO FP 08/01/2019 10:2 7:02 AM EDT [facility] Outpatient Attender: JOHNATHON DIEGO FP 07/30/2019 11:31:01 A M EDT [facility] Outpatient Attender: KATRIN BLUM 07/07/2019 03:30:00 PM ED [facility] Outpatient Attender: Mvais DIEGO FP 07/04/2019 10:3 3:02 AM EDT [facility] Outpatient [...] Marie MD 07/01/2019 04:55:00 A M EDT [facility] Outpatient Attender: JOHNATHON DIEGO FP 06/30/2019 04:21:00 P M EDT [facility] Outpatient Attender: Mavis DIEGO FP 06/22/2019 06:0 1:59 PM EDT [facility] Outpatient Attender: Mavis Batista CONSUMER ATTORNEY FP 06/17/2019 03:3 2:01 PM EDT [facility] Outpatient Attender: JOHNATHON Batista JOHNATHON FP 05/27/2019 12:22:00 P M EDT [facility] Outpatient Attender: Mavis Batista JOHNATHON FP 05/24/2019 11:3 7:01 PM EDT [facility] Outpatient Attender: JOHNATHON Batista JOHNATHON FP 05/20/2019 12:36:01 P M EDT [facility] Outpatient Attender: JOHNATHON Batista JOHNATHON FP 05/20/2019 11:56:00 A M EDT [facility] Outpatient Attender: JOHNATHON Batista JOHNATHON FP 05/20/2019 11:42:01 A M EDT [facility] Outpatient Attender: JOHNATHON Batista JOHNATHON FP 05/01/2019 03:31:00 P M EST [facility] Outpatient Attender: Mavis Batista JOHNATHON FP 04/28/2019 10:4 4:01 AM [facility] Outpatient Attender: KATRIN BLUM 04/21/2019 10:29:00 AM [facility] Outpatient Attender: JOHNATHON DIEGO FP 04/15/2019 12:44:01 P M [facility] Outpatient Attender: MAHESH RECNIOS 02/24/2019 01:46:00 PM [facility] Outpatient Attender: JANE EDWARD 02/21/2019 10:00:00 AM [facility] Attender: MAHESH RECINOS 02/10/2019 02:18:00 PM [facility] Inpatient Attender: CHAO MARI MDAttdoug harjinder: PRERNA RIOS MDAdmitter: PRERNA RIOS MD ER-3RD 12/23/2018 04:01:00 PM EDT - 12/26/2018 01:22:00 PM EDT [facility] Patient discharged. Inpatient Attender: ONDINA RAMIREZ MDAdmitter: ONDINA RAMIREZ MD E R-ICU 12/19/2018 05:26:00 PM EDT - 12/23/2018 03:42:00 PM EDT [facility] Patient discharged. Emergency Attender: MATIAS MIKE EMERGENCY ROOM-ER 03:51:00 PM EDT - 12/19/2018 04:47:00 PM [facility] Patient discharged. Medications Medication Brand [...] {capsule_at_bedtime} active Doxepin HCl 25 MG eCW1 ([facility] jimena) Doxepin Hydrochloride 25 MG Oral Capsule Doxepin HCl 25 MG D oxepin HCl 25 MG 03/09/2020 12:00:00 AM EST 1.0 {capsule_at_bedtime} active Doxepin HCl 25 MG eCW1 ([facility] jimena) Doxepin Hydrochloride 25 MG Oral Capsule Doxepin HCl 25 MG D oxepin HCl 25 MG 03/09/2020 12:00:00 AM EST 1.0 {capsule_at_bedtime} active Doxepin HCl 25 MG [facility] Doxepin Hydrochloride 25 MG Oral Capsule Doxepin HCl 25 MG D oxepin HCl 25 MG 03/09/2020 12:00:00 AM EST 1.0 {capsule_at_bedtime} active Doxepin HCl 25 MG [facility] Doxepin Hydrochloride 25 MG Oral Capsule Doxepin HCl 25 MG D oxepin HCl 25 MG 03/09/2020 12:00:00 AM EST 1.0 {capsule_at_bedtime} active Doxepin HCl 25 MG eCW1 ([facility]ena) Doxepin Hydrochloride 25 MG Oral Capsule Doxepin HCl 25 MG D oxepin HCl 25 MG 03/09/2020 12:00:00 AM EST 1.0 {capsule_at_bedtime} active Doxepin HCl 25 MG [facility] Doxepin Hydrochloride 25 MG Oral Capsule Doxepin HCl 25 MG D oxepin HCl 25 MG 03/09/2020 12:00:00 AM EST 1.0 {capsule_at_bedtime} active Doxepin HCl 25 MG [facility]CW[facility] 8-2 mg 03/03/2020 12:00:00 AM [...] activ e Clonidine HCl 0.2 MG [facility]CW[facility] Clonidine Hydrochloride 0.2 MG Oral Tablet Clonidine H Cl 0.2 MG Clonidine HCl 0.2 MG 12/24/2019 12:00:00 AM EDT 1.0 {tablet} activ e Clonidine HCl 0.2 MG eCW1 ([facility]ena) Clonidine Hydrochloride 0.2 MG Oral Tablet Clonidine H Cl 0.2 MG Clonidine HCl 0.2 MG 12/24/2019 12:00:00 AM EDT 1.0 {tablet} activ e Clonidine HCl 0.2 MG [facility] Clonidine Hydrochloride 0.2 MG Oral Tablet Clonidine H Cl 0.2 MG Clonidine HCl 0.2 MG 12/24/2019 12:00:00 AM EDT 1.0 {tablet} activ e Clonidine HCl 0.2 MG eCW1 ([facility]) Clonidine Hydrochloride 0.2 MG Oral Tablet Clonidine H Cl 0.2 MG Clonidine HCl 0.2 MG 12/24/2019 12:00:00 AM EDT 1.0 {tablet} activ e Clonidine HCl 0.2 MG eCW1 ([facility]) Clonidine Hydrochloride 0.2 MG Oral Tablet Clonidine H Cl 0.2 MG Clonidine HCl 0.2 MG 12/24/2019 12:00:00 AM EDT 1.0 {tablet} activ e Clonidine HCl 0.2 MG eCW1 ([facility]) Clonidine Hydrochloride 0.2 MG Oral Tablet Clonidine H Cl 0.2 MG Clonidine HCl 0.2 MG 12/24/2019 12:00:00 AM EDT 1.0 {tablet} suspe nded Clonidine HCl 0.2 MG eCW1 ([facility]) Clonidine Hydrochloride 0.2 MG Oral Tablet Clonidine H Cl 0.2 MG Clonidine HCl 0.2 MG 12/24/2019 12:00:00 AM EDT 1.0 {tablet} activ e Clonidine HCl 0.2 MG eCW1 ([facility]) Clonidine Hydrochloride 0.2 MG Oral Tablet Clonidine H Cl 0.2 MG Clonidine HCl 0.2 MG 12/24/2019 12:00:00 AM EDT 1.0 {tablet} activ e Clonidine HCl 0.2 MG eCW1 ([facility]) Clonidine Hydrochloride 0.2 MG Oral Tablet Clonidine H Cl 0.2 MG Clonidine HCl 0.2 MG 12/24/2019 12:00:00 AM EDT 1.0 {tablet} activ e Clonidine HCl 0.2 MG eCW1 ([facility]) Clonidine Hydrochloride 0.2 MG Oral Tablet Clonidine H Cl 0.2 MG Clonidine HCl 0.2 MG 12/24/2019 12:00:00 AM EDT 1.0 {tablet} activ e Clonidine HCl 0.2 MG eCW1 ([facility]) Clonidine Hydrochloride 0.2 MG Oral Tablet Clonidine H Cl 0.2 MG Clonidine HCl 0.2 MG 12/24/2019 12:00:00 AM EDT 1.0 {tablet} activ e Clonidine HCl 0.2 MG eCW1 ([facility]) Clonidine Hydrochloride 0.2 MG Oral Tablet Clonidine H Cl 0.2 MG Clonidine HCl 0.2 MG 12/24/2019 12:00:00 AM EDT 1.0 {tablet} suspe nded Clonidine HCl 0.2 MG eCW1 ([facility]) Clonidine Hydrochloride 0.2 MG Oral Tablet Clonidine H Cl 0.2 MG Clonidine HCl 0.2 MG 12/24/2019 12:00:00 AM EDT 1.0 {tablet} activ e Clonidine HCl 0.2 MG eCW1 ([facility]) Clonidine Hydrochloride 0.2 MG Oral Tablet Clonidine H Cl 0.2 MG Clonidine HCl 0.2 MG 12/24/2019 12:00:00 AM EDT 1.0 {tablet} activ e Clonidine HCl 0.2 MG eCW1 ([facility]) Clonidine Hydrochloride 0.2 MG Oral Tablet Clonidine H Cl 0.2 MG Clonidine HCl 0.2 MG 12/24/2019 12:00:00 AM EDT 1.0 {tablet} suspe nded Clonidine HCl 0.2 MG eCW1 ([facility]) Clonidine Hydrochloride 0.2 MG Oral Tablet Clonidine H Cl 0.2 MG Clonidine HCl 0.2 MG 12/24/2019 12:00:00 AM EDT 1.0 {tablet} activ e Clonidine HCl 0.2 MG eCW1 ([facility]) Clonidine Hydrochloride 0.2 MG Oral Tablet Clonidine H Cl 0.2 MG Clonidine HCl 0.2 MG 12/24/2019 12:00:00 AM EDT 1.0 {tablet} activ e Clonidine HCl 0.2 MG eCW1 ([facility]) 300 mg 12/13/2019 12:00:00 [...] {tablet_at_bedtime} active Clonazepam 0 .5 MG eC1 ([facility]) Clonazepam 0.5 MG Oral Tablet Clonazepam 0.5 MG 11/04/2019 12:00:00 AM EDT 1.0 {tablet_at_bedtime} active Clonazepam 0 .5 MG eCW1 ([facility]) lisdexamfetamine dimesylate 50 MG Oral Capsule [Vyvans e] Vyvanse 50 MG Vyvanse 50 MG 11/04/2019 12:00:00 AM EDT 1.0 {capsule_in_the_morning} active Vyvanse 50 MG eCW1 ([facility]) Citalopram 20 MG Oral Tablet [Celexa] Celexa 20 MG Celexa 20 MG 11/04/2019 12:00:00 AM EDT 1.0 {tablet} active Ce elise 20 MG eCW1 ([facility]) Citalopram 20 MG Oral Tablet [Celexa] Celexa 20 MG Celexa 20 MG 11/04/2019 12:00:00 AM EDT 1.0 {tablet} active Ce elise 20 MG eCW1 ([facility]) lisdexamfetamine dimesylate 50 MG Oral Capsule [Vyvans e] Vyvanse 50 MG Vyvanse 50 MG 11/04/2019 12:00:00 AM EDT 1.0 {capsule_in_the_morning} active Vyvanse 50 MG eCW1 ([facility]) Citalopram 20 MG Oral Tablet [Celexa] Celexa 20 MG Celexa 20 MG 11/04/2019 12:00:00 AM EDT 1.0 {tablet} active Ce elise 20 MG eCW1 ([facility]) 75 mg 11/02/2019 12:00:00 AM [...] 1.0 {tablet} active Risperdal 3 MG eCW1 ([facility]) Risperidone 3 MG Oral Tablet [Risperdal] Risperdal 3 MG Risp erdal 3 MG 07/07/2019 12:00:00 AM EDT 1.0 {tablet} active Risperdal 3 MG eCW1 ([facility]) Risperidone 3 MG Oral Tablet [Risperdal] Risperdal 3 MG Risp erdal 3 MG 07/07/2019 12:00:00 AM EDT 1.0 {tablet} active Risperdal 3 MG eCW1 ([facility]) Risperidone 3 MG Oral Tablet [Risperdal] Risperdal 3 MG Risp erdal 3 MG 07/07/2019 12:00:00 AM EDT 1.0 {tablet} active Risperdal 3 MG eCW1 ([facility]) Risperidone 2 MG Oral Tablet [Risperdal] Risperdal 2 MG Risp erdal 2 MG 07/07/2019 12:00:00 AM EDT 1.0 {tablet} active Risperdal 2 MG eCW1 ([facility]) Risperidone 3 MG Oral Tablet [Risperdal] Risperdal 3 MG Risp erdal 3 MG 07/07/2019 12:00:00 AM EDT 1.0 {tablet} active Risperdal 3 MG eCW1 ([facility]) Risperidone 3 MG Oral Tablet [Risperdal] Risperdal 3 MG Risp erdal 3 MG 07/07/2019 12:00:00 AM EDT 1.0 {tablet} active Risperdal 3 MG eCW1 ([facility]) Risperidone 3 MG Oral Tablet [Risperdal] Risperdal 3 MG Risp erdal 3 MG 07/07/2019 12:00:00 AM EDT 1.0 {tablet} active Risperdal 3 MG eCW1 ([facility]) Risperidone 3 MG Oral Tablet [Risperdal] Risperdal 3 MG Risp erdal 3 MG 07/07/2019 12:00:00 AM EDT 1.0 {tablet} active Risperdal 3 MG eCW1 ([facility]) Risperidone 3 MG Oral Tablet [Risperdal] Risperdal 3 MG Risp erdal 3 MG 07/07/2019 12:00:00 AM EDT 1.0 {tablet} active Risperdal 3 MG eCW1 ([facility]) Risperidone 2 MG Oral Tablet [Risperdal] Risperdal 2 MG Risp erdal 2 MG 07/07/2019 12:00:00 AM EDT 1.0 {tablet} active Risperdal 2 MG eCW1 ([facility]) Risperidone 3 MG Oral Tablet [Risperdal] Risperdal 3 MG Risp erdal 3 MG 07/07/2019 12:00:00 AM EDT 1.0 {tablet} active Risperdal 3 MG eCW1 ([facility]) Risperidone 3 MG Oral Tablet [Risperdal] Risperdal 3 MG Risp erdal 3 MG 07/07/2019 12:00:00 AM EDT 1.0 {tablet} active Risperdal 3 MG eCW1 ([facility]) Risperidone 3 MG Oral Tablet [Risperdal] Risperdal 3 MG Risp erdal 3 MG 07/07/2019 12:00:00 AM EDT 1.0 {tablet} active Risperdal 3 MG eCW1 ([facility]) Risperidone 3 MG Oral Tablet [Risperdal] Risperdal 3 MG Risp erdal 3 MG 07/07/2019 12:00:00 AM EDT 1.0 {tablet} active Risperdal 3 MG eCW1 ([facility]) Risperidone 3 MG Oral Tablet [Risperdal] Risperdal 3 MG Risp erdal 3 MG 07/07/2019 12:00:00 AM EDT 1.0 {tablet} active Risperdal 3 MG eCW1 ([facility]) Risperidone 3 MG Oral Tablet [Risperdal] Risperdal 3 MG Risp erdal 3 MG 07/07/2019 12:00:00 AM EDT 1.0 {tablet} active Risperdal 3 MG eCW1 ([facility]) Risperidone 2 MG Oral Tablet [Risperdal] Risperdal 2 MG Risp erdal 2 MG 07/07/2019 12:00:00 AM EDT 1.0 {tablet} active Risperdal 2 MG eCW1 ([facility]) Risperidone 3 MG Oral Tablet [Risperdal] Risperdal 3 MG Risp erdal 3 MG 07/07/2019 12:00:00 AM EDT 1.0 {tablet} active Risperdal 3 MG eCW1 ([facility]) Risperidone 3 MG Oral Tablet [Risperdal] Risperdal 3 MG Risp erdal 3 MG 07/07/2019 12:00:00 AM EDT 1.0 {tablet} active Risperdal 3 MG eCW1 ([facility]) Risperidone 3 MG Oral Tablet [Risperdal] Risperdal 3 MG Risp erdal 3 MG 07/07/2019 12:00:00 AM EDT 1.0 {tablet} active Risperdal 3 MG eCW1 ([facility]) 8-2 mg 06/27/2019 12:00:00 AM [...] to dick Policy Dick Plan Information [employer] [id number] SP [id number] [facility] [id number] S [id number] [facility] MEDICAID [id number] S [id number] [facility](MCAID) O [id number] S [id number] [facility] MEDICAID [id number] S [id number] [facility] MEDICAID [id number] S [id number] Managed Care - [facility] Community Plan P [id number] S [id number] Medicaid S [id number] S [id number] [facility] [id number] SP [id number] [facility] [id number] S [id number] [employer] [id number] SP [id number] [facility] XIX [phone] MEDICAID [id number] SP [id number] [facility] Care [facility] Community Plan P [id number] S [id number] MEDICAID [id number] S [id number] MEDICAID [id number] S [id number] MEDICAID PROF FEES [id number] MEDICAID [id number] S [id number] [facility] [id number] S [id number] Medicaid S [id number] S [id number] [facility] Care [facility] P [id number] S [id number] [facility] CURBER DEPT [id number] SP [id number] Medicaid P [id number] S [id number] SELF PAY ONLY [id number] SP [id number] [id number] SP [id number] [facility] CURBER DEPT [id number] SP [id number] SELF PAY UNAVAILABLE SP UNAVAILA BLE Self Pay P UNAVAILABLE S UNAVAILA BLE Medicaid P [id number] S [id number] [facility] S UNAVAILA BLE [facility] P [id number] S [id number] Medicaid S UNAVAILABLE S UNAVAILA BLE Problems, Conditions, and Diagnoses Code Display Name Description Problem Type Effective Dates Data Source(s) F19.10 Polysubstance abuse Polysubstance abuse Problem 0 03/11/2020 12:00:00 AM EST eCW1 ([facility] jimena) F19.11 [id number] History of drug abuse Problem 03/01/2020 12: 00:00 AM EST eCW1 ([facility]) K14.6 [id number] Tongue sore Problem 03/01/2020 12:00:[address] eCW1 ([facility]) F19.10 [id number] Substance abuse Problem 12/24/2019 12:00:00 AM EDT eCW1 ([facility]) F50.81 [id number] Binge eating disorder Problem 11/04/2019 12: 00:00 AM EDT eCW1 ([facility]) G56.03 [id number] Carpal tunnel syndrome, bilateral Pr oblem 10/31/2019 12:00:00 AM EDT eCW1 ([facility] jimena) R13.12 [id number] Oropharyngeal dysphagia Problem 10/31/2019 1 2:00:00 AM EDT eCW1 ([facility]) F17.200 22678390 Tobacco dependence Problem 10/31/2019 12:00: 00 AM EDT eCW1 ([facility]) E66.9 [id number] Obesity (BMI 30.0-34.9) Problem 0 10/31/2019 12:00:00 AM EDT eCW1 ([facility] jimena) Z68.30 741851101 BMI 30.0-30.9,adult Problem 10/31/2019 12:00 :00 AM EDT eCW1 ([facility]) K21.9 [id number] Gastroesophageal ref lux disease, esophagitis presence not specified Problem 10/31/2019 12:00:00 AM EDT eCW1 ([facility]) K92.0 Hematemesis Hematemesis - cause unknown 020 05:42:44 PM EDT [facility] I80.9 Phlebitis and thrombophlebitis of unspec ified site Phlebitis and thrombophlebitis of unspecified site 05/20/2019 12:34:09 PM EDT [facility] right AC and right tibia F15.10 Other stimulant abuse, uncomplicated OTH ER STIMULANT ABUSE, UNCOMPLICATED Diagnosis 03/30/2020 10:30:00 AM EST [facility] F19.10 Other psychoactive substance abuse, unco mplicated OTHER PSYCHOACTIVE SUBSTANCE ABUSE, UNCOMPLICATED Diagnosis 03/30/2020 10:30:00 AM [facility] F43.12 Post-traumatic stress disorder, chronic POST-TRAUMATIC STRESS DISORDER, CHRONIC Diagnosis 03/30/2020 10:30:00 AM EST [facility] T14.8XXA OTHER INJURY OF UNSPECIFIED BODY REGION, INITIAL E OTHER INJURY OF UNSPECIFIED BODY REGION, INITIAL E Diagnosis 03/30/2020 10:18:00 AM [facility] K13.79 Other lesions of oral mucosa OTHER LESIONS OF ORAL MUC SINA Diagnosis 03/30/2020 10:18:00 AM [facility] F25.9 Schizoaffective disorder, unspecified SC HIZOAFFECTIVE DISORDER, UNSPECIFIED Diagnosis 03/30/2020 10:18:00 AM [facility] A04.72 ENTEROCOLITIS D/T CLOSTRIDIUM DIFFICILE, NOT SPCF RECUR ENTEROCOLITIS D/T CLOSTRIDIUM DIFFICILE, NOT SPCF RECUR Diagnosis 10:18:00 AM [facility] F11.21 Opioid dependence, in remission OPIOID DEPENDENC E, IN REMISSION Diagnosis 03/23/2020 02:00:00 PM [facility] F50.81 BINGE EATING DISORDER BINGE EATING DISORDER Diagnosis 03/23/2020 02:00:00 PM [facility] F90.0 Attention-deficit hyperactivity disorder , predominantly inattentive type ATTN-DEFCT HYPERACTIVITY DISORDER, PREDOM INATTENT Diagnosis 01/2021 03:40:00 PM [facility] Z13.29 Encounter for screening for other suspec keven endocrine disorder ENCOUNTER FOR SCREENING FOR OTH SUSPECTE Diagnosis 03/01/2020 04:49:00 PM [facility] Z82.61 Family history of arthritis FAMILY HISTORY OF ARTHRITI S Diagnosis 03/01/2020 03:45:00 PM [facility] Z13.220 Encounter for screening for lipoid disor ders ENCOUNTER FOR SCREENING FOR LIPOID DISORDERS Diagnosis 03/01/2020 03:45:00 PM [facility] Z82.69 Family history of other dise ases of the musculoskeletal system and connective tissue FAMILY HISTORY OF DISEASES OF THE MS SYS AND CONNE Diagnosis 03/01/2020 03:45:00 PM [facility] R50.9 Fever, unspecified FEVER, UNSPECIFIED Diagnosis 05/2020 03:45:00 PM [facility] 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, in r emission OTHER PSYCHOACTIVE SUBSTANCE ABUSE, IN REMISSION Diagnosis 03/01/2020 03:45:00 PM [facility] G56.03 CARPAL TUNNEL SYNDROME, BILATERAL UPPER LIMBS CARPAL TUNNEL SYNDROME, BILATERAL UPPER LIMBS Diagnosis 03/01/2020 03:45:00 PM [facility] james K21.9 Gastro-esophageal reflux disease without esophagitis GASTRO-ESOPHAGEAL REFLUX DISEASE WITHOUT ESOPHAGITIS Diagnosis 02/18/2020 10:00:00 AM [facility] F12.10 Cannabis abuse, uncomplicated CANNABIS ABUSE, UNCOMPLI CATED Diagnosis 12/24/2019 11:00:00 AM [facility] F11.10 Opioid abuse, uncomplicated OPIOID ABUSE, UNCOMPLICATE D Diagnosis 12/24/2019 11:00:00 AM [facility] R13.12 Dysphagia, oropharyngeal phase DYSPHAGIA, OROPHARYNGEA L PHASE Diagnosis 12/24/2019 08:24:00 AM [facility] M54.2 Cervicalgia CERVICALGIA Diagnosis 12/24/2019 08:24:00 AM [facility] T50.914D POISONING BY MULTIPLE UNSP DRUG/MEDS/BIO L SUBST, U POISONING BY MULTIPLE UNSP DRUG/MEDS/BIOL SUBST, U Diagnosis 12/24/2019 08:24:00 AM [facility] F19.20 Other psychoactive substance dependence, uncomplicated OTHER PSYCHOACTIVE SUBSTANCE DEPENDENCE, UNCOMPLIC Diagnosis 12/05/2019 10:08:00 AM [facility] R45.851 Suicidal ideations SUICIDAL IDEATIONS Diagnosis 10/2019 10:08:00 AM [facility] G40.909 Epilepsy, unspecified, not intractable, without status epilepticus EPILEPSY, UNSP, NOT INTRACTABLE, WITHOUT STATUS EP Diagnosis 10/2019 10:08:00 AM [facility] F32.2 Major depressive disorder, s rito episode, severe without psychotic features MAJOR DEPRESSV DISORD, SINGLE EPSD, SEV Diagnosis 12/05/2019 10:08:00 AM [facility] F25.1 Schizoaffective disorder, depressive typ e SCHIZOAFFECTIVE DISORDER, DEPRESSIVE TYPE Diagnosis 12/05/2019 10:08:00 AM [facility] Y92.[address] or not applicable UNSPECIFIED PLACE OR NOT APPLICABLE Diagnosis 12/04/2019 11:06:00 PM [facility] X58.XXXA Exposure to other specified factors, ini tial encounter EXPOSURE TO OTHER SPECIFIED FACTORS, INITIAL ENCOU Diagnosis 12/04/2019 11:06:00 P M [facility] T42.6X2A Poisoning by other antiepile ptic and sedative-hypnotic drugs, intentional self-harm, initial encounter POISN BY OTH ANTIEPLPTC AND SED-HYPNTC DRUGS, SLF- Diagnosis 12/04/2019 11:06:00 PM [facility] T40.902A Poisoning by unspecified psy chodysleptics [hallucinogens], intentional self-harm, initial encounter POISONING BY UNSP PSYCHODYSLEPTICS, SELF-HARM, INI Diagnosis 12/04/2019 11:06:00 PM [facility] K21.9 Gastro-esophageal reflux disease without esophagitis GASTRO-ESOPHAGEAL REFLUX DISEASE WITHOUT ESOPHAGIT Diagnosis 12/04/2019 11:06:00 PM [facility] F90.9 Attention-deficit hyperactivity disorder , unspecified type ATTENTION- DEFICIT HYPERACTIVITY DISORDER, UNSPECIF Diagnosis 12/04/2019 11:06:00 PM [facility] F43.10 Post-traumatic stress disorder, unspecif ied POST-TRAUMATIC STRESS DISORDER, UNSPECIFIED Diagnosis 12/04/2019 11:06:00 PM [facility] F43.23 Adjustment disorder with mixed anxiety a nd depressed mood ADJUSTMENT DISORDER WITH MIXED ANXIETY AND DEPRESS Diagnosis 12/04/2019 11:06:00 PM [facility] T42.4X2A Poisoning by benzodiazepines, intentiona l self-harm, initial encounter POISONING BY BENZODIAZEPINES, INTENTIONAL SELF-HARM, INIT Diagnosis 12/04/2019 11:06:00 PM [facility] Y93.89 Activity, other specified ACTIVITY, OTHER SPECIFIED Di agnosis 12/04/2019 04:21:00 PM [facility] Y92.[address] the place of o ccurrence of the external cause OT PLACES THE PLACE OF OCCURRENCE OF THE EXTER Diagnosis 09/2019 04:21:00 PM [facility] 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 O THER [facility] (CURRENT) DRUG THERAPY Diagnosis 12/04/2019 04:21:00 PM [facility] Z20.828 Contact with and (suspected) exposure to other viral communicable diseases CONTACT W AND EXPOSURE TO OTH VIRAL COMMUNICABLE D Diagnosis 12/04/2019 04:21:00 PM [facility] F17.210 Nicotine dependence, cigarettes, uncompl icated NICOTINE DEPENDENCE, CIGARETTES, UNCOMPLICATED Diagnosis 12/04/2019 04:21:00 PM [facility] T50.992A Poisoning by other drugs, me dicaments and biological substances, intentional self-harm, initial encounter POISONING BY OTH DRUG/MEDS/BIOL SUBST, SELF-HARM, Diagnosis 12/04/2019 04:21:00 PM [facility] R45.851 Suicidal ideations SUICIDAL IDEATIONS Diagnosis 09/2019 04:21:00 PM [facility] P24085 Nicotine dependence, cigarettes, uncompl icated Nicotine dependence, cigarettes, uncomplicated Diagnosis 11/07/2019 12:19:00 AM [facility] F1510 Other stimulant abuse, uncomplicated Other stimu lant abuse, uncomplicated Diagnosis 11/07/2019 12:19:00 AM [facility] C52666 Other psychoactive substance abuse with psychoactive substance-induced anxiety disorder Other psychoactive substance abuse with psychoactive substance- induced anxiety disorder Diagnosis 11/07/2019 12:19:00 AM [facility] R110 Nausea Nausea Diagnosis 11/07/2019 12:19:00 AM ED [facility] Z76.89 Persons encountering health services in other specified circumstances PERSONS ENCOUNTERING HEALTH SERVICES IN OTH CIRCUM Diagnosis 05/2019 09:06:00 AM [facility] Z71.9 Counseling, unspecified COUNSELING, UNSPECIFIED Diagno sis 10/31/2019 09:06:00 AM [facility] Z68.30 Body mass index (BMI) 30.0-30.9, adult B BOB MASS INDEX (BMI) 30.0-30.9, ADULT Diagnosis 10/31/2019 09:06:00 AM [facility] E66.9 Obesity, unspecified OBESITY, UNSPECIFIED Diagnosis 10/31/2019 09:06:00 AM [facility] R56.9 Unspecified convulsions UNSPECIFIED CONVULSIONS Diagno sis 10/31/2019 09:06:00 AM [facility] F909 Attention-deficit hyperactivity disorder , unspecified type Attention- deficit hyperactivity disorder, unspecified type Diagnosis 10/08 02:09:00 AM [facility] J029 Acute pharyngitis, unspecified Acute pharyngitis, unsp ecified Diagnosis 10/09/2019 02:09:00 AM [facility] F15.11 OTHER STIMULANT ABUSE, IN REMISSION OTHER STIMUL ANT ABUSE, IN REMISSION Diagnosis 02/24/2019 01:46:00 PM [facility] Z72.0 Tobacco use TOBACCO USE Diagnosis 02/21/2019 10:00:00 AM [facility] Surgeries/Procedures Procedure Description Date Indications Data Source(s) Psychological Tests, Neurobehavioral and Cognitive Status 12/06/2019 12:00:00 AM [facility] Introduction of Electrolytic and Water B alance Substance into Peripheral Vein, Percutaneous Approach 12/04/2019 12:00:00 AM [facility] Results ID Date Data Source [id number] 04/10/2020 02:50:00 PM EST [facility] Name Value Range Interpretation Code Description Data [place] rce(s) Supporting Document(s) SARS coronavirus 2 RNA [Presence] in Res piratory specimen by MARK with probe detection POSITIVE [facility] This lab was ordered by [facility] a nd reported by [facility]. ID Date Data Source [id number] 04/09/2020 02:48:00 AM EST [facility] Name Value Range Interpretation Code Description Data [place] rce(s) Supporting Document(s) SARS COVID ANTIGEN POSITIVE [facility] This lab was ordered by [facility] a nd reported by [facility]. ID Date Data Source [id number] 04/09/2020 02:46:00 AM EST [facility] Name Value Range Interpretation Code Description Data [place] rce(s) Supporting Document(s) SARS COVID ANTIGEN POSITIVE [facility] This lab was ordered by [facility] a nd reported by [facility]. ID Date Data Source [id number] 03/04/2020 12:09:00 PM EST [facility] Name Value Range Interpretation Code Description Data [place] rce(s) Supporting Document(s) FAZAL DIRECT Negative Negative [facility] Performed at: RN - [facility] [place] [id number] Director: Elsa Garcia MD, Phone: [phone] ID Date Data Source [id number] 03/04/2020 12:05:00 PM EST [facility] Name Value Range Interpretation Code Description Data [place] rce(s) Supporting Document(s) FAZAL Direct Negative Negative [facility] ID Date Data Source [id number] 03/03/2020 08:50:00 AM EST [facility] ADD ON TEST Name Value Range Interpretation Code Description Data [place] rce(s) Supporting Document(s) RHEUMATOID FACTOR SCREEN NEGATIVE NEGATIVE [facility] ID Date Data Source [id number] 03/03/2020 08:37:00 AM EST [facility] ADD ON TEST Name Value Range Interpretation Code Description Data [place] rce(s) Supporting Document(s) FREE T4 1.0 ng/dL 0.76-1.46 [facility] ID Date Data Source [id number] 03/03/2020 08:37:00 AM EST [facility] ADD ON TEST Name Value Range Interpretation Code Description Data [place] rce(s) Supporting Document(s) TSH 0.422 uIU/mL 0.36-3.74 [facility] ID Date Data Source [id number] 03/03/2020 08:11:00 AM EST [facility] ADD ON TEST Name Value Range Interpretation Code Description Data [place] rce(s) Supporting Document(s) C REACTIVE PROTEIN 15.6 mg/L 0.0-3.0 [facility] ID Date Data Source [id number] 03/03/2020 08:11:00 AM EST [facility] ADD ON TEST Name Value Range Interpretation Code Description Data [place] rce(s) Supporting Document(s) GLUCOSE 85 mg/dL 74-106 [facility] BLOOD UREA NITROGEN 11 mg/dL 7-18 [facility] ital CREATININE 0.88 mg/dL 0.6-1.0 [facility] SODIUM 135 mmol/L 136-145 L [facility] POTASSIUM 4.1 mmol/L 3.5-5.1 [facility] CHLORIDE 99 mmol/L 98-107 [facility] CO2 26 mmol/L 21-32 [facility] CALCIUM 8.8 mg/dL 8.5-10.1 [facility] ANION GAP 10.0 mmol/L 5-12 [facility] GLOMERULAR FILTRATION RATE 74 mL/min [facility] GFR IS CALCULATED IN mL/min/1.73m2 LISANDRA L FUNCTION: >90MILDLY DECREASED: 60-89MILDY TO MODERATELY DECREASED: 45-59 MODERATELY TO SEVERELY DECREASED: 30-44SEVERELY DECREASED: 15-29RENAL FAILURE: <15 AST 32 U/L 15-37 [facility] ALT 32 U/L 12-78 [facility] ALKALINE PHOSPHATASE 65 U/L 46-116 [facility] TOTAL BILIRUBIN 0.2 mg/dL 0.2-1.0 [facility] TOTAL PROTEIN 6.9 g/dl 6.4-8.2 [facility] ALBUMIN 3.9 gm/dL 3.4-5.0 [facility] ID Date Data Source [id number] 03/01/2020 05:46:00 PM EST [facility] Name Value Range Interpretation Code Description Data [place] rce(s) Supporting Document(s) CHOLESTEROL 193 mg/dL 0-200 [facility] TRIGLYCERIDES 86 mg/dL 0-150 [facility] LDL CHOLESTEROL 111 mg/dL 0-100 H [facility] HDL CHOLESTEROL 65 mg/dL 40-60 H [facility] CHOL/HDL RATIO 3.0 0.0-5.0 [facility] ID Date Data Source [id number] 02/29/2020 10:40:00 AM EST [facility] Name Value Range Interpretation Code Description Data [place] rce(s) Supporting Document(s) SARS coronavirus 2 RNA [facility] This lab was ordered by [facility] and reported by [facility]. ID Date Data Source [id number] 12/10/2019 11:15:00 AM EDT [place], [place] [address]PATIENT NAME: BRUNA LEE#: [id number] PHYSICIAN: PRERNA RIOS MD ADM. DATE: 12/05/19ACCOUNT #: [id number] DISCH. DATE:DISCHARGE SUMMARYIDENTIFICATION: A 34-year-old female with schizoaffective disorder,polysubstance dependence.CHIEF COMPLAINT: "I don't know why I am here."REASON FOR ADMISSION: Post- overdose.HISTORY OF PRESENT ILLNESS: The patient was interviewed in ICU after sheoverdosed. The patient was seen in [facility] for a regularconsultation, she could not [...] [place] time in our service with [...] ABUSE: None.SOCIAL HISTORY: The patient is from [place], did not finish high school.She was in [...] The patient was discharged with the medications Vnwcpy29 mg p.o. daily, Neurontin 600 mg p.o. [...] be enrolled in outpatient chemical dependence in [place].MENTAL STATUS EXAMINATION: The patient is pleasant, cooperative. [...] Dictated: 12/10/2019 09:34:34Date Transcribed: 12/10/2019 10:15:05JV/PUSJob #: [id number]: 12/10/19 0934 Electronically SignedTRANS:12/10/19 1115 PRERNA RIOS MDTRANS BY:IATDAFUNMI SIGNED:12/10/19REPORT COPY TO: Name Value Range Interpretation Code Description Data [place] rce(s) Supporting Document(s) ID Date Data Source [id number] 12/10/2019 06:43:00 AM EDT [address] [id number] NAME: BRUNA LEE#: [id number] PHYSICIAN: PRERNA RIOS, [facility]: [id number] ADM. DATE: 12/05/19PATIENT : 89 DISCH. DATE: [...] follow-upappointmentDischarge InformationDISCHARGE INFORMATION* Thank you for [facility] and allowing us toserve you* Our Goal is to provide the highest quality of care.* This discharge information is to help you better understand your diagnosisand medication* Avoid taking vvzw-uan-[id number] medicines unless approved by your physician.* Take your medications as prescribed. DO NOT stop any medications unlessapproved first* Weigh yourself daily. Report any gain of 5 lbs in a week* 24 Hour Crisis HOTLINE available: Call [facility] at [phone]* Chem. Dependency: Walk in Clinics [place] ([phone]) and [place] ([phone]) anytime Sunday thru Sunday 8 to 10am. [place] ([phone]) anytimeSunday thru Sunday 8 to 10am. [place] ([phone]) Sunday or Sunday from 8to 10am (Bring $30 to [facility]) SMOKIN G CESSATION* Smoking is dangerous to your health. It delays the healing process, andworks against your medications. Not smoking will improve your health* Our hospital participates with the Opt-to-Quit program. You will be contactedafter discharge by the [facility] Smoker's Quitline for support with tobaccocessation. You have the option once contacted to refuse this service.* You can also go online to www.[employer]. Free nicotine replacementsare available Attention* You should [...] rce(s) Supporting Document(s) ID Date Data Source [id number] 12/10/2019 02:15:00 AM EDT [address] [id number] NAME: BRUNA LEE Joe Orellana#: [id number] PHYSICIAN: PRERNA RIOS MD ADM. DATE: 12/05/19PROGRESS NOTE DATE: 12/09/19 .#: 318ACCOUNT #: [id number] NOTEIDENTIFICATION: A 34-year-old female with mood disorder [...] Dictated: 12/09/2019 10:52:52Date Transcribed: 12/10/2019 01:15:28JV/RAVJob #: [id number]: 12/09/19 1052 Electronically SignedTRANS:12/10/19 0215 PRERNA RIOS MDTRANS BY:ADE SIGNED:12/10/19REPORT COPY TO: Name Value Range Interpretation Code Description Data [place] rce(s) Supporting Document(s) ID Date Data Source [id number] 12/08/2019 11:58:00 AM EDT [facility] Name Value Range Interpretation Code Description Data [place] rce(s) Supporting Document(s) URINE COLOR Yellow [facility] UAPR Clear [facility] UGLU Negative NEGATIVE [facility] URINE BILIRUBIN Negative NEGATIVE [facility] UKET Negative NEGATIVE [facility] USG 1.015 1.010-1.025 [facility] UBLO Negative NEGATIVE N [facility] UpH 8.0 5.0-8.0 [facility] UPRO Negative Negative [facility] UUB 0.2 mg/dL 0.2-1.0 [facility] UNIT Negative Negative [facility] ULEU Negative Negative [facility] ID Date Data Source [id number] 12/09/2019 04:57:00 AM EDT [facility] [address] [address]NRRVSPA NAME: JESUSBRUNA Joe Orellana#: [id number] PHYSICIAN: PRERNA RIOS MD ADM. DATE: 12/05/19PROGRESS NOTE DATE: 12/08/19 .#: 318ACCOUNT #: [id number] NOTEIDENTIFICATION: A 34-year-old female with mood disorder, [...] Dictated: 12/08/2019 10:30:51Date Transcribed: 12/09/2019 03:57:49JV/RAVJob #: [id number]: 12/08/19 1030 Electronically SignedTRANS:12/09/19 0457 PRERNA RIOS MDTRANS BY:IATDAFUNMI SIGNED:12/09/19REPORT COPY TO: Name Value Range Interpretation Code Description Data [place] rce(s) Supporting Document(s) ID Date Data Source [id number] 12/06/2019 11:02:00 PM EDT [place], [place] [address]PATIENT NAME: BRUNA LEE#: [id number] PHYSICIAN: PRERNA RIOS MD ADM. DATE: 12/05/19ACCOUNT #: [id number] .#: [id number] ASSESSMENTIDENTIFICATION: A 34-year-old female with schizoaffective disorder andpolysubstance dependence.CHIEF COMPLAINT: "I don't know why I am here."REASON FOR ADMISSION: Post-overdose.HISTORY OF PRESENT ILLNESS: According to the records and our interview, thepatient was brought to our service after being in ICU and the medical floorfor an overdose. The patient went to the outpatient clinic in [facility] and she passed out in consultation. [...] 2 weeks ago, that she was in [place] inpatient service for 5 days forthat.The patient [...] into detail.SOCIAL HISTORY: The patient is from [place]. Did not finish high school.She is in [...] Dictated: 12/06/2019 12:22:47Date Transcribed: 12/06/2019 22:02:14JV/GBJob #: [id number]: 12/06/19 1222 Electronically Signed TRANS:12/06/19 2302 PRERNA RIOS MDTRANS BY:ADE SIGNED:12/07/19REPORT COPY TO: Name Value Range Interpretation Code Description Data [place] rce(s) Supporting Document(s) ID Date Data Source [id number] 12/05/2019 02:12:00 AM [facility] Name Value Range Interpretation Code Description Data [place] rce(s) Supporting Document(s) CKI 109 U/L 17-150 [facility] ID Date Data Source [id number] 12/05/2019 04:49:00 PM EDT [facility] [address] HEALTH HISTORY AND PHYSICALPATIENT NAME: BRUNA LEE MR#: [id number] PHYSICIAN: FELA VILLAROR: Diogenes Bueno MD DATE: [...] [facility]Past Medical/Surgical HistoryPast Medical/Surgical HistoryMedical ProblemsAcute respiratory [...] rce(s) Supporting Document(s) ID Date Data Source [id number] 12/05/2019 09:48:00 AM EDT [facility] [address] [address]UWVYQADPZ SUMMARYPATIENT NAME: BRUNA LEE MR#: [id number] PHYSICIAN: BEHZAD HOGAN MDAUTHOR: Diogenes Bueno MD DATE: 12/04/19 RM#: [id number] DATE: 12/05/19 : 87Summary of HospitalizationReason for AdmissionOverdose on xanax, gabapentin, bath saltsHospital Qalpka57 yo F who was admitted for an [...] [facility]Diagnoses (Current Visit)Problem List1. Drug overdose2. Seizure [...] taking the following medications:Gabapentin* (Neurontin*) 400 MG [id number] MILLIGRAM Orally DAILYContinue taking these medications:LEVETIRACETAM (LEVETIRACETA) 1,000 MG TABLET1,000 MILLIGRAM Orally TWICE DAILYQty = 60Amitriptyline HCl (Amitriptyline HCl) 100 MG [id number] MILLIGRAM Orally DAILYSUCRALFATE (Carafate*) 1 GM TABLET1 GM Orally TWICE DAILYcloniDINE* (CLONIDINE*) 0.1 MG TABLET0.1 MILLIGRAM Orally TWICE DAILYOmeprazole Magnesium (Prilosec Otc) 20 MG TABLET.DR20 MILLIGRAM Orally DAILYrispERIdone (RISPERDAL*) 0.5 MG TABLET2 MILLIGRAM Orally TWICE DAILYATOMOXETINE HCL (Strattera) 18 MG [id number] MILLIGRAM Orally DAILYBUPRENORPHINE HCL/NALOXONE HCL (Suboxone 8 MG-2 MG Sl Film) 1 EACH FILM1 MILLIGRAM SublinguallySUMATRIPTAN SUCCINATE (Imitrex*) 50 MG [id number] MILLIGRAM Orally DAILY NEEDED as needed for HeadacheOxcarbazepine (Trileptal) 150 MG [id number] MILLIGRAM Orally TWICE DAILYDischarge Activity: As tolerated, No liftingDischarge diet: RegularFollow-upFollow up with the mental health doctor [facility] spent by provider to complete discharge > 30 minutesDATE SIGNED: 12/05/19 Electronically SignedTIME SIGNED: 1912 DIOGENES BUENO MD Name Value Range Interpretation Code Description Data [place] rce(s) Supporting Document(s) ID Date Data Source [id number] 12/05/2019 09:46:00 AM EDT [facility] [address] [place], [place] [address]PJIZIDB NAME: BRUNA LEE Joe Orellana#: [id number] PHYSICIAN: BEHZAD HOGAN [facility] #: [id number] ADM. DATE: 12/04/19PATIENT : 89 DISCH. DATE: [50}DISCHARGE SUMMARYMedical Discharge PlanNicotine Replacement TherapyPrescribed at discharge Rx not offered at DCReason not offered pt is going to UPersonal Care InstructionsDischarge Activity: As tolerated, No liftingDischarge diet: RegularProblem ListMedical ProblemsAcute respiratory failure (Acute)Drug abuse (Chronic)Drug overdose (Acute)SchizophreniaSeizure disorder (Chronic, 12/20/18)Follow Up CareFollow Up:Follow up [facility] the [facility]Priority ItemsUrgent/Important items that need to be addressed at primary care follow-upappointmentPLEASE AVOID GABAPENTIN/XANAX/BATH SALTS IN THE FUTUREDischarge InformationDISCHARGE INFORMATION* Thank you for choosing [facility] and allowing us toserve you* Our [...] Hour Crisis HOTLINE available: Call [employer] at [phone] SMOKING CESSATION* Smoking is dangerous to your health. It delays the healing process, andworks against your medications. Not smoking will improve your health* Our [facility] participates with the Opt-to-Quit program. You will be contactedafter discharge by the [facility] Smoker's Quitline for support with tobaccocessation. You have the option once contacted to refuse this service.* You can also go online to www.[employer]ruent. Free nicotine replacementsare available Attent ion* You [...] tools, or drive.END ENDDICT: 12/05/19945 Electronically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 [id number] 11/07/2019 12:19:00 AM EDT [facility] 1 Clinical Report - Nurses [facility] Emergency Department [address] [place] [address] Phone #: ext- [phone] 11/07/2019 00:19 Patient: BRUNA LEE Sex: F : 1985 Age: 34yTRIAGEHistorian: EMS and patient.Triage time: 00:24 11/07/2019.Chief Complaint: NAUSEA and ("face swelling").Onset. (states that it has been going on all day.). ( states that she has been sleeping a lot and used Molly2 days ago. No Meth in 2 weeks.).Treatment EKG MONITOR:(Took her normal medications today.). --00:27 11/07/19 Meme [...] last month. 2 Clinical Report - Nurses [facility] Emergency Department [address] [place] [address] Phone #: ext- [phone] 11/07/2019 00:19 Patient: [...] pump. Allergies 3 Clinical Report - Nurses [facility] Emergency Department [address] [place] [address] Phone #: [phone] 11/07/2019 00:19 Patient: BRUNA LEE Sex: F [...] patient is calm and resting quietly. ( Weir provided. Reassurance given to pt. Lights dimmed. [...] Patient verbalized understanding. Written instructions provided in Chadian. The patient was discharged by the physician. [...] rce(s) Supporting Document(s) ID Date Data Source [id number] 11/07/2019 12:19:00 AM EDT [facility] 1 Clinical Report - Physicians/Mid Levels [facility] Emergency Department [address] [place] [address] Phone #: ext- [phone] 11/07/2019 00:19 Patient: [...] no Meth in over 2 weeks; woke EKG MONITOR w face swelling and nausea, no other Sx, no withdrawal, ROS otw neg.; pt known at [facility] for multiple ER visits for different [...] Hernia Repair. 2 Clinical Report - Physicians/Mid [facility] Emergency Department [address] [place] [address] Phone #: ext- [phone] 11/07/2019 00:19 Patient: [...] (Reference) 3 Clinical Report - Physicians/Mid Levels [facility] Emergency Department [address] [place] [address] Phone #: ext- [phone] 11/07/2019 00:19 Patient: [...] Male GFR Interprentation 20-49 yrs >60 mL/min Umxgaq70-88 yrs >56 mL/min Normal 60- 69 yrs >49 mL/min Normal 70-79yrs>42 mL/min Normal 80 and above >35 mL/min Normal Female GFRInterpretation 20-39 yrs >60 mL/min Normal 40-49 yrs >58 mL/minNormal 50-59 yrs >51 mL/min Normal 60-69 yrs >45 mL/min Normal 4 Clinical Report - Physicians/Mid Levels [facility] Emergency Department [address] [place] [address] Phone #: ext- [phone] 11/07/2019 00:19 Patient: BRUNA LEE Sex: F : 1985 Age: 27s32-85 yrs >39 mL/min Normal 80 and above >32 mL/min NormalBeta-HCG, Qual Serum: (JENN: 11/07/2019 02:15) ( MsgRcvd 11/07/2019 03:20) Final results Test Result Flag Units (Reference) HCG SERUM QUAL NEGATIVE (NORMAL: NEGAT HCG SERUM QL REENTER NEGATIVE (NORMAL: NEGAT { KIT LOT # [id number] ){ KIT EXP [id number] ){ PROCEDURAL CONTROL VALID)CPK: (JENN: 11/07/2019 02:15) [...] BE PERFORMED AT [facility].Urinalysis: (JENN: 11/07/2019 02:00) ( NhgRcvd 11/07/2019 02:28) Final results Test Result Flag [...] Indicate 5 Clinical Report - Physicians/Mid Levels [facility] Emergency Department [address] [place] [address] Phone #: ext- [phone] 11/07/2019 00:19 Patient: BRUNA LEE Sex: F [...] was requested by: Evonne Anne Reference #: [id number] Others' Prescriptions Patient Name: Bruna LeeBirth Date: 1985 Address: [address] [place], [place] [address]Sex: Female Rx Written Rx Dispensed Drug Quantity [...] table. 6 Clinical Report - Physicians/Mid Levels [facility] Emergency Department [address] [place] [address] Phone #: ext- [phone] 11/07/2019 00:19 Patient: [...] Oral. 7 Clinical Report - Physicians/Mid Levels [facility] Emergency Department [address] [place] [address] Phone #: ext- [phone] 11/07/2019 00:19 Patient: [...] rce(s) Supporting Document(s) ID Date Data Source [id number] 11/07/2019 03:20:00 AM EDT [facility] Name Value Range Interpretation Code Description Data [place] rce(s) Supporting Document(s) HCG SERUM QUAL NEGATIVE NORMAL: NEGATIVE [facility] HCG SERUM QL REENTER NEGATIVE NORMAL: NEGATIVE [facility] { KIT LOT # [id number] ){ KIT EXP DATE 12-08-20 ){ PROCEDURAL CONTROL VALID ) ID Date Data Source [id number] 11/07/2019 03:15:00 AM EDT [facility] Name Value Range Interpretation Code Description Data [place] rce(s) Supporting Document(s) Creatine kinase [Enzymatic activity/volume] in Serum or Plasma 3 13 U/L 30 - 170 H [facility] ID Date Data Source [id number] 11/07/2019 03:14:00 AM EDT [facility] Name Value Range Interpretation Code Description Data [place] rce(s) Supporting Document(s) COMPREHENSIVE METABOLIC PANEL [facility] COMPREHENSIVE METABOLIC PANEL Sodium [Moles/volume] in Serum or Plasma 140 mEq/L 134 - 153 [facility] Potassium [Moles/volume] in Serum or Plasma 3.8 mEq/L 3.6 - 5.0 [facility] Chloride [Moles/volume] in Serum or Plasma 100 mEq/L 98 - 107 [facility] Carbon dioxide, total [Moles/volume] in Serum or Plasma 30 MEQ/L 22 - 30 [facility] Glucose [Mass/volume] in Serum or Plasma 98 MG/DL 65 - 110 [facility] BUN 14 MG/DL 7 - 21 [facility] Creatinine [Mass/volume] in Serum or Plasma 0.7 MG/DL 0.7 - 1.5 [facility] BUN/CREAT 20 8 - 27 [facility] Protein [Mass/volume] in Serum or Plasma 5.9 G/DL 6.3 - 8.2 L [facility] Albumin [Mass/volume] in Serum or Plasma 3.6 G/DL 3.9 - 5.0 L [facility] Globulin [Mass/volume] in Serum by calculation 2.3 GM/DL 2.4 - 3.2 L [facility] A/G RATIO 1.6 0.8 - 2.0 [facility] Calcium [Mass/volume] in Serum or Plasma 9.2 MG/DL 8.4 - 10.2 [facility] Bilirubin.total [Mass/volume] in Serum or Plasma <0.7 MG/DL 0.2 - 1.3 [facility] Alkaline phosphatase [Enzymatic activity/volume] in Serum or Plasma 62 U/L 38 - 126 [facility] Aspartate aminotransferase [Enzymatic activity/volume] in Serum or Plasma 302 U/L 5 - 40 H [facility] Alanine aminotransferase [Enzymatic activity/volume] in Seru m or Plasma 125 U/L 7 - 56 H [facility] Anion gap 3 in Serum or Plasma 10.0 mmol/L 8.0 - 16.0 [facility] AGE 34 yrs [facility] NON-AA GFR >60 mL/min [facility] ital AFR AMER GFR >60 mL/min [facility] sp[facility] Male GFR In terprentation [...] >32 mL/min Normal ID Date Data Source [id number] 11/07/2019 02:27:00 AM EDT [facility] Name Value Range Interpretation Code Description Data [place] rce(s) Supporting Document(s) CBC W/AUTOMATED DIFF [facility] COMPLETE BLOOD COUNT Leukocytes [#/volume] in Blood by Automated count 8.3 10^3/uL 4.2 - 1 1.0 [facility] Erythrocytes [#/volume] in Blood by Automated count 3.87 10^6/uL 4. 20 - 5.40 L [facility] Hemoglobin [Mass/volume] in Blood 11.6 g/dL 12.0 - 16.0 L [facility] Hematocrit [Volume Fraction] of Blood by Automated count 36.0 % 3 7.0 - 47.0 L [facility] Erythrocyte mean corpuscular volume [Entitic volume] by Auto mated count 93.0 fL 81.0 - 101 [facility] Erythrocyte mean corpuscular hemoglobin [Entitic mass] by Automated count 30.0 pg 27.0 - 34.0 [facility] Erythrocyte mean corpuscular hemoglobin concentration [Mass/volume] by Automated count 32.2 g/dL 31.0 - 36.0 [facility] Erythrocyte distribution width [Ratio] by Automated count 13.3 % 11.5 - 14.5 [facility] Platelets [#/volume] in Blood by Automated count 271 10^3/uL 150 - 45 0 [facility] Platelet mean volume [Entitic volume] in Blood by Automated count 9.5 fL 7.4 - 10.4 [facility] Neutrophils/100 leukocytes in Blood by Automated count 82.6 % 37. 0 - 80.0 H [facility] Lymphocytes/100 leukocytes in Blood by Manual count 14.3 % 25.0 - 40.0 L [facility] Monocytes/100 leukocytes in Blood by Automated count 1.6 % 3.0 - 8.0 L [facility] Eosinophils/100 leukocytes in Blood by Automated count 0.8 % 0.0 - 7.0 [facility] Basophils/100 leukocytes in Blood by Automated count 0.2 % 0.0 - 2.5 [facility] %IG 0.5 % 0.0 - 0.0 H [facility] %NRBC 0.0 % 0.0 - 0.0 [facility] al Neutrophils [#/volume] in Blood by Automated count 6.85 10^3/uL 2.00 - 6.90 [facility] Lymphocytes [#/volume] in Blood by Automated count 1.19 10^3/uL 0.60 - 3.40 [facility] Monocytes [#/volume] in Blood by Automated count 0.13 10^3/uL 0.00 - 0.90 [facility] Eosinophils [#/volume] in Blood by Automated count 0.07 10^3/uL 0.00 - 0.70 [facility] Basophils [#/volume] in Blood by Automated count 0.02 10^3/uL 0.00 - 0.20 [facility] #IG 0.04 10^3/uL 0.00 - 0.10 [facility] #NRBC 0.00 10^3/uL 0.00 - 0.00 [facility] ospital MANUAL DIFF NOT INDICATED [facility] RBC MORPH NOT INDICATED [facility] ID Date Data Source [id number] 11/07/2019 03:14:00 AM EDT [facility] Name Value Range Interpretation Code Description Data [place] rce(s) Supporting Document(s) DRUG SCREEN URINE [facility] URINE DRUG SCREEN Amphetamine [Presence] in Urine by Screen method PRESUMP POS LISANDRA L: NEGATIVE [facility] BARBITURATES NEGATIVE NORMAL: NEGATIVE [facility] BENZO NEGATIVE NORMAL: NEGATIVE [facility] COCAINE NEGATIVE NORMAL: NEGATIVE [facility] Tetrahydrocannabinol [Presence] in Urine NEGATIVE NORMAL: NEGATIVE [facility] OPIATES NEGATIVE NORMAL: NEGATIVE [facility] Phencyclidine [Presence] in Urine by Screen method NEGATIVE NOR MAL: NEGATIVE [facility] \\BLDo\\URINE DRUG SCR EEN INTERPRETATION\\BLDx\\ THE CUTOFFF LEVELS FOR DETECTION ARE FOLLOWS: AMPHETAMINES 1000 ng/ml BARBITUARATES 200 ng/ml BENZODIAZEPINES 100 ng/ml THC 50 ng/ml PHENCYCLIDINE 25 ng/ml OPIATES 300 ng/ml COCAINE 300 ng/ml ALL POSITIVES ARE CONSIDERED PRESUMPTIVE POSITIVE CONFIRMATION WILL BE PERFORMED AT PHYSICIAN REQUEST. ID Date Data Source [id number] 11/07/2019 02:27:00 AM EDT [facility] Name Value Range Interpretation Code Description Data [place] rce(s) Supporting Document(s) URINALYSIS [facility]ames URINALYSIS SOURCE R [facility] COLOR yellow NORMAL: Yellow [facility] CLARITY clear NORMAL: Clear [facility] Specific gravity of Urine by Test strip 1.020 1.001 - 1.030 [facility] pH 6 5 - 9 [facility] Glucose [Mass/volume] in Urine by Test strip NORM NORMAL: Negat [facility] Bilirubin.total [Presence] in Urine by Test strip NEG NORMAL: Negative [facility] Ketones [Presence] in Urine by Test strip NEG NORMAL: Negative [facility] Protein [Mass/volume] in Urine by Test strip NEG NORMAL: Negat [facility] Nitrite [Presence] in Urine by Test strip NEG NORMAL: Negative [facility] BLOOD NEG NORMAL: Negative [facility] Leukocyte esterase [Presence] in Urine by Test strip NEG LISANDRA L: Negative [facility] Urobilinogen [Mass/volume] in Urine by Test strip 1 less kenna n 1.0 mg/dL [facility] MICROSCOPIC Not Indicate [facility] ID Date Data Source [id number] 10/30/2019 10:27:00 AM EDT [facility] Name Value Range Interpretation Code Description Data [place] rce(s) Supporting Document(s) BG FASTING 132 mg/dL 70-100 H [facility] TSH 0.526 microintl units/mL 0.358-3.740 [facility] ID Date Data Source [id number] 10/30/2019 10:27:00 AM EDT [facility] Name Value Range Interpretation Code Description Data [place] rce(s) Supporting Document(s) HCT 37.6 % 36.0-47.0 N [facility] HGB 11.8 g/dL 12.0-15.5 L [facility] MCH 31.4 G/DL pg 32.0-36.5 L [facility] MCHC 29.9 PG % 27.0-33.0 N [facility] PLATELETS 209 10 10*3/mm3 150-450 N [facility] RBC 3.94 10 10*6/mm3 4.00-5.40 L [facility] RDW 12.6 % 11.5-14.5 N [facility] WBC TOTAL 4.5 4.0-10.0 N [facility] ID Date Data Source [id number] 10/13/2019 03:25:00 PM EDT [facility] Name Value Range Interpretation Code Description Data [place] rce(s) Supporting Document(s) HCT 40.7 % 36.0-47.0 N [facility] HGB 13.3 g/dL 12.0-15.5 N [facility] MCH 32.7 G/DL pg 32.0-36.5 N [facility] MCHC 30.4 PG % 27.0-33.0 N [facility] PLATELETS 288 10 10*3/mm3 150-450 N [facility] RBC 4.37 10 10*6/mm3 4.00-5.40 N [facility] RDW 12.4 % 11.5-14.5 N [facility] WBC TOTAL 8.7 4.0-10.0 N [facility] ID Date Data Source [id number] 10/09/2019 02:09:00 AM EDT [facility] 1 OrderSheet [facility] Emergency Department [address] [place] [address] Phone #: ext- [phone] 10/09/2019 02:08 Patient: BRUNA LEE Sex: F [...] rce(s) Supporting Document(s) ID Date Data Source [id number] 10/09/2019 02:09:00 AM EDT [facility] 1 Medication Reconciliation Report [facility] Emergency Department [address] [place] [address] Phone #: ext- [phone] 10/09/2019 02:08 Patient: [...] rce(s) Supporting Document(s) ID Date Data Source [id number] 10/09/2019 02:09:00 AM EDT [facility] 1 Medication Administration Record [facility] Emergency Department [address] [place] [address] Phone #: ext- [phone] 10/09/2019 02:08 Patient: BRUNA LEE Sex: F : 1985 Age: 34yWeight: 81.1 kgHeight/Length: 60 inBMI: 34.9ALLERGIES: Penicillins, Sulfa Antibiotics Date/Time Medication Administered Medication OrderedGiven IBUPROFEN [PO] Ibuprofen 800 mg PO X1 dose: 00144:39 10/09/2019 Dose: 800 mg Tablets PO mg (NOW x1)Meme Maldonado R.N. Name Value Range Interpretation Code Description Data [place] rce(s) Supporting Document(s) ID Date Data Source [id number] 10/09/2019 02:09:00 AM EDT [facility] 1 General Instructions [facility] Emergency Department [address] [place] [address] Phone #: ext [phone] 10/09/2019 02:08 Patient: BRUNA LEE Sex: F [...] INFORMATIONViral Pharyngitis (Sore Throat) 2 General Instructions [facility] Emergency Department [address] [place] [address] Phone #: ext- [phone] 10/09/2019 02:08 Patient: [...] glass of warm water. 3 General Instructions [facility] Emergency Department [address] [place] [address] Phone #: ext- [phone] 10/09/2019 02:08 Patient: [...] breathing or noisy breathing 4 General Instructions [facility] Emergency Department [address] [place] [address] Phone #: ext- [phone] 10/09/2019 02:08 Patient: BRUNA LEE Sex: F : 1985 Age: 34y Muffled voice New rash Other symptoms are getting worse [phone] [employer]. [address] [place] [address]. All rights reserved. This information is not intended as asubstitute for professional medical care. Always follow your healthcare professional's instructions. You have been given the following additional information: Pharyngitis, Viral(Electronically signed by Evonne Anne M.D. 10/09/2019 03:51) Name Value Range Interpretation Code Description Data [place] rce(s) Supporting Document(s) ID Date Data Source [id number] 10/09/2019 02:09:00 AM EDT [facility] 1 Clinical Report - Nurses [facility] Emergency Department [address] [place] [address] Phone #: ext- [phone] 10/09/2019 02:08 Patient: BRUNA LEE Sex: F : 1985 Age: 34yTRIAGEHistorian: EMS and patient.Triage time: 02:08 10/09/2019.Chief Complaint: SORE THROAT.This started just prior to arrival. The patient has had a hoarse voice.Treatment EKG MONITOR:Took Tylenol. (arthritis kind).EMS Treatment EKG MONITOR:See EMS report.SEPSIS SCREEN: SIRS Screen: heart rate greater than 90. Sepsis Screen negative. No suspected orconfirmed signs of infection present. --02:14 10/09/19 Meme Maldonado R.N.02:11 10/09/19. BP: 130/86. MAP: 100. HR: 105. RR: 18. O2 saturation: 100%. Temp: 98.5 F. Pain levelnow: 12/05. --02:14 10/09/19 Meme Maldonado R.N.Treatment EKG MONITOR:(Seen at [facility] for this issue within the last [...] Maldonado R.N.AllergiesPenicillins.(hives) 2 Clinical Report - Nurses [facility] Emergency Department [address] [place] [address] Phone #: ext- [phone] 10/09/2019 02:08 Patient: [...] Dental decay. 3 Clinical Report - Nurses [facility] Emergency Department [address] [place] [address] Phone #: ext- [phone] 10/09/2019 02:08 Patient: BRUNA LEE Sex: F [...] Patient verbalized understanding. Written instructions provided in Chadian. The patient was discharged by the physician. [...] rce(s) Supporting Document(s) ID Date Data Source [id number] 10/09/2019 02:09:00 AM EDT [facility] 1 Clinical Report - Physicians/Mid Levels [facility] Emergency Department [address] [place] [address] Phone #: ext- [phone] 10/09/2019 02:08 Patient: [...] (per EMS, pt is well known to [facility] ER for multiple ER visits for multiple somatic and psychiatric complaints; tonight, she complains of sore throat, hoarse voice, bugs on her skin, etc.; pt has therapist in [place]). Similar symptoms previously. Patient has had similar [...] Hernia Repair. Medications: 2 Clinical Report - Physicians/[facility] Emergency Department [address] [place] [address] Phone #: ext- [phone] 10/09/2019 02:08 Patient: [...] PROCEDURAL CONTROL VALID ){ KIT LOT # [id number] ){ KIT EXP DATE [id number] )The 3 Clinical Report - Physicians/Mid Levels [facility] Emergency Department [address] [place] [address] Phone #: ext- [phone] 10/09/2019 02:08 Patient: [...] was requested by: Evonne Anne Reference #: [id number] Others' Prescriptions Patient Name: Bruna LeeBirth Date: 1985 Address: [address] [place] [id number]: Female Rx Written Rx Dispensed Drug Quantity [...] film 56 28 MoehJose J hopson MD [facility] 05/01/2019 05/01/2019 buprenorphine-naloxone [...] 8 mg-2 mg sl film 56 28 AzJose J dumont MD Medicaid [facility] 4 Clinical Report - Physicians/Mid Levels [facility] Emergency Department [address] [place] [address] Phone #: [phone]- [phone] 10/09/2019 02:08 Patient: BRUNA LEE Sex: F : 1985 Age: 34y 11/12/2018 11/12/2018 suboxone 8 mg-2 mg sl film 56 28 Jose J Mao MD Medicaid [facility] 10/15/2018 10/15/2018 suboxone 8 mg-2 mg sl film 56 28 [facility] [...] unknown*. 5 Clinical Report - Physicians/Mid Levels [facility] Emergency Department [address] [place] [address] Phone #: ext- [phone] 10/09/2019 02:08 Patient: [...] rce(s) Supporting Document(s) ID Date Data Source [id number] 10/09/2019 03:02:00 AM EDT [facility] Name Value Range Interpretation Code Description Data [facility] rce(s) Supporting Document(s) RAPID STREP NEGATIVE NORMAL: NEGATIVE [facility] RAPID STREP REENTER NEGATIVE NORMAL: NEGATIVE [facility] { PROCEDURAL CONTROL VALID ){ KIT LOT # [id number] ){ KIT EXP DATE [id number] )The Strep [...] basis for treatment. ID Date Data Source [id number] 09/22/2019 02:34:28 PM EDT [facility] [...] (ER) or urgent care clinic? Yes - [facility] Have you seen another healthcare provider? Yes - [facility] Have you seen a dentist? NoIntake [...] this is different. Sees [facility] for her mental health issues (schizophrenia) and feels that this is going well.HPI performed by: Francesco Ritchie MD, September 22, 2019 2:52 PMTransitions of Care InboundProblem ReviewProblem List was reviewed and/or updated during this visit.Medication Reconciliation & ReviewMedication List was reviewed and/or updated during this visit, including review of any tchj-qkz-opbuaqs medications, herbal therapies, and/or supplements.Allergy ReviewAllergy List [...] Plan Problems:Added: Hematemesis - cause unknown (ICD-578.0) (RIZ27-N68.0) Assessment: Instructions: Currently asymptomatic but worrisome enough to warrant further workup.Avoid NSAIDs and refer to GI.Return to ER if this occurs again.Assessed:Peripheral neuropathy (ICD-356.9) (GNA58-C14.9) Assessment: Instructions: I am not sure where [...] (Critical)Orders:Adult - Ofc Vst, EST, Level III [CPT-57842] Gastroenterology Consult [CPT-60061] Medications:GABAPENTIN 400 MG ORAL CAPSULE (GABAPENTIN) take one tablet by mouth three times daily as needed #90[Capsule] x 0 Route:ORAL Entered and Authorized by: Francesco Ritchie MD Method used: Electronically to [facility] (retail) [address] [place] [address] Note to Pharmacy: Route: ORAL; Indications: PERIPHERAL NEUROPATHY;BILATERAL CARPAL TUNNEL SYNDROME RxID: [id number] 1000 MG ORAL TABLET (LEVETIRACETAM) 1 pill po bid #60[Tablet] x 0 Route:ORAL Entered and Authorized by: Francesco Ritchie MD Method used: Electronically to [facility] (retail) [address] [place] [address] Note to Pharmacy: Route: ORAL; RxID: [id number] SUCCINATE 50 MG ORAL TABLET (SUMATRIPTAN SUCCINATE) take one tab po at the onset of headache. may repeat dose x one if no releif after two hours. #15[Tablet] x 0 Entered and Authorized by: Francesco Ritchie MD Method used: Electronically to [facility] (retail) [address] [place] [address] RxID: [id number] OMEPRAZOLE 20 MG ORAL TABLET DELAYED RELEASE (OMEPRAZOLE) One tablet by mouth every day #30[Tablet] x 2 Route:ORAL Entered and Authorized by: Francesco Ritchie MD Method used: Electronically to [facility] (retail) [address] [place] [address] Note to Pharmacy: Route: ORAL; RxID: [id number] DOXYCYCLINE MONOHYDRATE 100 MG ORAL TABLET (DOXYCYCLINE MONOHYDRATE) take one tablet by mouth twice daily x 5 days #10[Tablet] x 0 Route:ORAL Entered by: Demetria Elliott MA Authorized by: Mavis Lester CONSUMER ATTORNEY Method used: Electronically to [facility] (retail) [facility] [place] [address] RxID: [id number] signed by Francesco Ritchie MD on 09/22/2019 at 5:42 PM Name Value Range Interpretation Code Description Data [place] rce(s) Supporting Document(s) ID Date Data Source [id number] 09/10/2019 10:45:00 PM EDT [facility] Name Value Range Interpretation Code Description Data [place] rce(s) Supporting Document(s) BG FASTING 96 mg/dL 70-100 N [facility] ID Date Data Source [id number] 09/10/2019 10:45:00 PM EDT [facility] Name Value Range Interpretation Code Description Data [place] rce(s) Supporting Document(s) HCT 37.4 % 36.0-47.0 N [facility] HGB 12.1 g/dL 12.0-15.5 [facility] MCH 32.4 G/DL pg 32.0-36.5 N [facility] MCHC 30.2 PG % 27.0-33.0 [facility] PLATELETS 244 10 10*3/mm3 150-450 N [facility] RBC 4.01 10 10*6/mm3 4.00-5.40 [facility] RDW 12.8 % 11.5-14.5 N [facility] WBC TOTAL 4.9 4.0-10.0 [facility] ID Date Data Source [id number] 05/20/2019 11:42:55 AM EDT [facility] [...] you seen another healthcare provider? Yes - [facility] Have you seen a dentist? NoRate [...] during this visit, including review of any awpx-qwd-vndinua medications, herbal therapies, and/or supplements.Allergy ReviewAllergy List [...] Problems:Added: Phlebitis and thrombophlebitis of unspecified site (VXP41-G36.9): right AC and right tibia Assessment: Instructions: May continue warm compresses 3-4 times daily as needed. Please try to keep extremities elevated. We have sent a prescription to your pharmacy today. Please take medication as prescribed. Please report any major side effects.Phlebitis and thrombophlebitis of unspecified site (THA77-E57.9): right AC and right tibia Assessment: right foot and right forearmAssessed:Tobacco use (ICD-305.1) (OGC76-K65.0) Assessment: Instructions: Please continue to try to quit smoking.Health Screening (ICD-V70.0) (SWR94-U94.9) Assessment: Instructions: Fasting labs ordered for you today. Please return prior to your next visit to have labs drawn. Please fast for 8-10 hours prior.Substance abuse (ICD-305.90) (QWJ02-I56.10) Assessment: Instructions: Please try to avoid the [...] (Critical)BACTRIM (Critical)* SULFA ANTIBIOTICS (Critical)Orders:COMP METABOLIC PANEL [CPT-45637] CBC W/DIFF [CPT- 38640] HgBA1c [CPT-61720] LIPID PANEL [CPT-83778] TSH [CPT-03122] T-4 free [CPT- 87336] Vitamin D 250H Unspecified [CPT-97495] URINALYSIS [CPT-39222] VITAMIN B- 12 [CPT-19235] Folate (Folic Acid Serum) [CPT-93038] IRON [CPT-19392] Adult - Ofc Vst, EST, Level III [CPT-83125] Follow-Up Return to clinic: 2-3 weeks for follow up Additional Follow-Up: If symptoms worsen, please return to clinic or the ERClinical Visit Summary CompletedMedications:DOXYCYCLINE MONOHYDRATE 100 MG ORAL TABLET (DOXYCYCLINE MONOHYDRATE) take one tablet by mouth twice daily x 5 days #10[Tablet] x 0 Route:ORAL Entered and Authorized by: Mavis DIEGO Method used: Electronically to [facility] (retail) [address] [place] [address] Note to Pharmacy: Route: ORAL; Indications: PHLEBITIS AND THROMBOPHLEBITIS OF UNSPECIFIED SITE RxID: [id number] signed by Mavis DIEGO on 05/24/2019 at 11:37 PM ____ Name Value Range Interpretation Code Description Data [place] rce(s) Supporting Document(s) Procedure Social History Code Duration Value Status Description Data Source(s ) Smoking 03/30/2020 12:00:00 AM EST Current Smoker completed Curre nt Smoker eCW1 ([facility]) Smoking 03/30/2020 12:00:00 AM EST Current Smoker completed Curre nt Smoker eCW1 ([facility]) Smoking 03/30/2020 12:00:00 AM EST Current Smoker completed Curre nt Smoker eCW1 ([facility]) Smoking 03/30/2020 12:00:00 AM EST Current Smoker completed Curre nt Smoker eCW1 ([facility]) Smoking 03/30/2020 12:00:00 AM EST Current Smoker completed Curre nt Smoker eCW1 ([facility]) Smoking 03/30/2020 12:00:00 AM EST Current Smoker completed Curre nt Smoker eCW1 ([facility]) Smoking 03/30/2020 12:00:00 AM EST Current Smoker completed Curre nt Smoker eCW1 ([facility]) Smoking 03/01/2020 12:00:00 AM EST Current Smoker completed Curre nt Smoker eCW1 ([facility]) Smoking 03/01/2020 12:00:00 AM EST Current Smoker completed Curre nt Smoker eCW1 ([facility]) Smoking 03/01/2020 12:00:00 AM EST Current Smoker completed Curre nt Smoker eCW1 ([facility]) Smoking 02/18/2020 12:00:00 AM EST Current Smoker completed Curre nt Smoker eCW1 ([facility]) Smoking 12/24/2019 12:00:00 AM EDT Current Smoker completed Curre nt Smoker eCW1 ([facility]) Smoking 12/24/2019 12:00:00 AM EDT Current Smoker completed Curre nt Smoker eCW1 ([facility]) Smoking 12/24/2019 12:00:00 AM EDT Current Smoker completed Curre nt Smoker eCW1 ([facility]) Smoking 12/24/2019 12:00:00 AM EDT Current Smoker completed Curre nt Smoker eCW1 ([facility]) Smoking 12/24/2019 12:00:00 AM EDT Current Smoker completed Curre nt Smoker eCW1 ([facility]) Smoking 12/24/2019 12:00:00 AM EDT Current Smoker completed Curre nt Smoker eCW1 ([facility]) Smoking 12/24/2019 12:00:00 AM EDT Current Smoker completed Curre nt Smoker eCW1 ([facility]) Smoking 10/31/2019 12:00:00 AM EDT Current Smoker completed Curre nt Smoker eCW1 ([facility]) Smoking 10/31/2019 12:00:00 AM EDT Current Smoker completed Curre nt Smoker eCW1 ([facility]) Smoking 10/31/2019 12:00:00 AM EDT Current Smoker completed Curre nt Smoker eCW1 ([facility]) Vital Signs ID Date Data Source UNK Name Value Range Interpretation Code Description Data Source(s) Oxygen saturation in Arterial blood by Pulse oximetry 98 % 98 % eCW1 ([facility]) Respiratory rate 18 /min 18 /min eCW1 ([facility]) Heart rate 119 /min 119 /min eCW1 ([facility]) Body mass index (BMI) [Ratio] 35.74 kg/m2 35.74 kg/m2 eCW1 ([facility]) Body weight 183.0 [lb_av] 183.0 [lb_av] eCW1 ([facility]) Body height 60.0 [in_i] 60.0 [in_i] eCW1 ([facility]) Oxygen saturation in Arterial blood by Pulse oximetry 99 % 99 % eCW1 ([facility]) Respiratory rate 18 /min 18 /min eCW1 ([facility]) Heart rate 93 /min 93 /min eCW1 ([facility]) Body mass index (BMI) [Ratio] 35.27 kg/m2 35.27 kg/m2 eCW1 ([facility]) Body weight 180.6 [lb_av] 180.6 [lb_av] eCW1 ([facility]) Body height 60 [in_i] 60 [in_i] eCW1 ([facility]) Oxygen saturation in Arterial blood by Pulse oximetry 97 % 97 % eCW1 ([facility]) Respiratory rate 18 /min 18 /min eCW1 ([facility]) Heart rate 89 /min 89 /min eCW1 ([facility]) Body mass index (BMI) [Ratio] 36.48 kg/m2 36.48 kg/m2 eCW1 ([facility]) Body weight 186.8 [lb_av] 186.8 [lb_av] eCW1 ([facility]) Body height 60 [in_i] 60 [in_i] eCW1 ([facility]) Body height 60 [in_i] 60 [in_i] eCW1 ([facility]) Oxygen saturation in Arterial blood by Pulse oximetry 98 % 98 % eCW1 ([facility]) Respiratory rate 18 /min 18 /min eCW1 ([facility]) Heart rate 86 /min 86 /min eCW1 ([facility]) Body temperature 98.0 [degF] 98.0 [degF] eCW1 ( [facility]) Body mass index (BMI) [Ratio] 32.10 kg/m2 32.10 kg/m2 eCW1 ([facility]) Body weight 164.4 [lb_av] 164.4 [lb_av] eCW1 ([facility]) Oxygen saturation in Arterial blood by Pulse oximetry 99 % 99 % eCW1 ([facility]) Respiratory rate 18 /min 18 /min eCW1 ([facility]) Heart rate 100 /min 100 /min eCW1 ([facility]) Body temperature 98.7 [degF] 98.7 [degF] eCW1 ( [facility]) Body mass index (BMI) [Ratio] 30.70 kg/m2 30.70 kg/m2 eCW1 ([facility]) Body weight 157.2 [lb_av] 157.2 [lb_av] eCW1 ([facility]) Body height 60 [in_i] 60 [in_i] eCW1 ([facility]) ID Date Data Source [id number] 12/26/2019 01:56:00 PM EDT [facility] Name Value Range Interpretation Code Description Data Source(s) WEIGHT 72.3 kilos 72.3 kilos [facility] HEIGHT 152.4 centimeters 152.4 centimeters [facility] WEIGHT 75 kilos 75 kilos [facility] HEIGHT 152.4 centimeters 152.4 centimeters [facility] ID Date Data Source [id number] 12/10/2019 06:07:00 AM EDT [facility] Name Value Range Interpretation Code Description Data Source(s) WEIGHT 68 kilos 68 kilos [facility] HEIGHT 152.4 centimeters 152.4 centimeters [facility] WEIGHT 68.4 kilos 68.4 kilos [facility] HEIGHT 152.4 centimeters 152.4 centimeters [facility] ID Date Data Source [id number] 12/08/2019 01:43:00 PM EDT [facility] Name Value Range Interpretation Code Description Data Source(s) WEIGHT 75 kilos [facility] HEIGHT 152.4 centimeters 152.4 centimeters [facility] ID Date Data Source [id number] 12/08/2019 01:43:00 PM EDT [facility] Name Value Range Interpretation Code Description Data Source(s) WEIGHT 74 kilos 74 kilos [facility] HEIGHT 160.02 centimeters 160.02 centimeter [facility] Patient Treatment Plan of Care Planned Activity Planned Date Details Description Data Source (s) Doxepin Hydrochloride 25 MG Oral Capsule 03/09/2020 12:00:00 AM EST eCW1 ([facility]) Doxepin Hydrochloride 25 MG Oral Capsule 03/09/2020 12:00:00 AM EST eCW1 ([facility]) Doxepin Hydrochloride 25 MG Oral Capsule 03/09/2020 12:00:00 AM EST eCW1 ([facility]) Clonidine Hydrochloride 0.2 MG Oral Tablet 12/24/2019 12:00:00 AM E DT eCW1 ([facility]) Clonidine Hydrochloride 0.2 MG Oral Tablet 12/24/2019 12:00:00 AM E DT eCW1 ([facility]) Clonidine Hydrochloride 0.2 MG Oral Tablet 12/24/2019 12:00:00 AM E DT eCW1 ([facility]) Clonidine Hydrochloride 0.2 MG Oral Tablet 12/24/2019 12:00:00 AM E DT eCW1 ([facility]) Clonidine Hydrochloride 0.2 MG Oral Tablet 12/24/2019 12:00:00 AM E DT eCW1 ([facility]) Clonidine Hydrochloride 0.2 MG Oral Tablet 12/24/2019 12:00:00 AM E DT eCW1 ([facility]) Clonidine Hydrochloride 0.2 MG Oral Tablet 12/24/2019 12:00:00 AM E DT eCW1 ([facility]) lisdexamfetamine dimesylate 50 MG Oral Capsule [Vyvans e] 11/04/2019 12:00:00 AM EDT eCW1 ([facility]) Clonazepam 0.5 MG Oral Tablet 11/04/2019 12:00:00 AM EDT eCW1 ([facility]) Citalopram 20 MG Oral Tablet [Celexa] 11/04/2019 12:00:00 AM EDT eCW1 ([facility]) Risperidone 3 MG Oral Tablet [Risperdal] 07/07/2019 12:00:00 AM EDT eCW1 ([facility]) Risperidone 3 MG Oral Tablet [Risperdal] 07/07/2019 12:00:00 AM EDT eCW1 ([facility]) Risperidone 2 MG Oral Tablet [Risperdal] 07/07/2019 12:00:00 AM EDT eCW1 ([facility]) Risperidone 2 MG Oral Tablet [Risperdal] 07/07/2019 12:00:00 AM EDT eCW1 ([facility]) Risperidone 3 MG Oral Tablet [Risperdal] 07/07/2019 12:00:00 AM EDT eCW1 ([facility])
== END 2020-04-20 21:00 | disposition home or self-care (01) ==
LOC: M ED 19:29 → EDBD 19:29 → M ED 21:00
DX: K13.70 Unspecified lesions of oral mucosa (principal); B18.2 Chronic viral hepatitis C; R13.10 Dysphagia, unspecified; Z88.0 Allergy status to penicillin; Z88.6 Allergy status to analgesic agent; Z88.8 Allergy status to other drugs, medicaments and biological substances; Z79.899 Other long term (current) drug therapy
CPT/HCPCS: 70360; 96372; 99284; J1200

== ENCOUNTER 2020-04-21 01:47 | Inpatient (IN) | payer MEDICAID, OTHER ==
[~2020-04-21] VITALS: Ht 152.4 cm; Wt 81.5 kg
--- OUTSIDE RECORDS SUMMARY | 2020-04-21 01:53 | CCD ---
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 12 Active confirmed 94373826 Problem Methamphetamine abuse F15.10 Active confirmed 594407512 Problem Opioid abuse F11.10 Active confirmed 4348117 Problem Opioid use disorder, severe, in sustained remission, on maintenance therapy F11.21 Active confirmed 590309792 Problem Cannabis abuse F12.10 Active confirmed 52362 009 Problem Gastroesophageal reflux disease, esophagitis pre sence not specified K21.9 Active confirmed 306135586 Problem BMI 30.0-30.9,adult Z68.30 Active confirmed 310728824 Problem Obesity (BMI 30.0-34.9) E66.9 Active confirmed [id number] Problem Tongue sore K14.6 Active confirmed 18737402 Problem Binge eating disorder F50.81 Active confirmed 825998379 Problem Polysubstance abuse F19.10 Active confirmed 459504424 Problem Schizoaffective disorder F25.9 Active confirmed 54865922 Problem Tobacco dependence F17.200 Active confirmed 37177333 Problem Oropharyngeal dysphagia R13.12 Active confirmed 62056574 Problem Carpal tunnel syndrome, bilateral G56.03 Active confirmed [id number] Problem History of drug abuse F19.11 Active confirmed 762299040 ALLERGIES Allergen (clinical drug ingredient) Drug/Non Drug Allergy do cumented on EMR Reaction Allergy Type Onset Date Status haloperidol Haldol([facility] Code:[address]-24) Unknown Drug Allergy Active olanzapine Zyprexa([facility] Code:[address]-81) Unknown Drug Allergy Active amoxicillin Amoxicillin([facility] Code:[address]-05) Unknown Drug Aller gy Active penicillin G Penicillin G Sodium([facility] Code:[address]-52) Unknown D rug Allergy Active sulfamethoxazole / trimethoprim Bactrim([facility] Code:[address]-63) Unknown Drug Allergy Active Sulfacet-R Unknown Drug Allergy Active ENCOUNTERS from 1987 to 2020-04-19 Encounter Location Date Provider Diagnosis [address] [address] [place], Shira Ford IMMUNIZATIONS No Information SOCIAL [...] Information RESULTS No Results REASON FOR VISIT refill MEDICAL (GENERAL) HISTORY Type Description Date Medical History bilateral carpal tunnel Medical History Seizure Medical History GERD Surgical History hernia repair 2012 Hospitalization History drug overdose 2020 [place] No Information Health Concerns No Information MEDICAL EQUIPMENT No Information MENTAL STATUS No Information FUNCTIONAL STATUS No Information ASSESSMENTS No Information PLAN OF TREATMENT Medication Medication Name Sig Start Date Stop Date Gabapentin 400 MG 1 capsule Orally three times a day for 30 days Next Appt Details Provider Name:Jena Lawson, 2020-04-20 03:00:00 PM, [address] [place] [address], [phone], Provider Name:Aliyah Vazquez, 04-21 08:40:00 AM, [address] [place] [address], [phone], Insurance Providers Payer Name Payer Address Payer Phone Insured Name Patient Relati onship to Insured Coverage Start Date Coverage End Date [employer] - [employer] [address] [facility] [id number] Melissa Phipps self
--- OUTSIDE RECORDS SUMMARY | 2020-04-21 01:55 | CCD ---
Author Author [facility] Organization [facility] Address Unknown Phone Unavailable Care Team Providers Care Feather Separator Name Role Phone Kori FLORES Unavailable Unavailable [...] MD Unavailable Unavailable JESICA, @ [facility] Unavailable Unavailable BEHZAD HOGAN MD Unavailable Unavailable Ching, Reginah W Kassidy DROP FORGE HAND-C Unavailable Unavailabl e Ching, Reginah W Kassidy DROP FORGE HAND-C Unavailable Unavailabl e Ching, Reginah W Kassidy DROP FORGE HAND-C Unavailable Unavailabl e Ching, Reginah W Kassidy DROP FORGE HAND-C Unavailable Unavailabl e Ching, Reginah W Kassidy DROP FORGE HAND-C Unavailable Unavailabl e Ching, Reginah W Kassidy DROP FORGE HAND-C Unavailable Unavailabl e Ching, Reginah W Kassidy DROP FORGE HAND-C Unavailable Unavailabl e Ching, Reginah W Kassidy DROP FORGE HAND-C Unavailable Unavailabl e Ching, Reginah W Kassidy DROP FORGE HAND-C Unavailable Unavailabl e Ching, Reginah W Kassidy DROP FORGE HAND-C Unavailable Unavailabl e Ching, Reginah W Kassidy DROP FORGE HAND-C Unavailable Unavailabl e Ching, Reginah W Kassidy DROP FORGE HAND-C Unavailable Unavailabl e Ching, Reginah W Kassidy DROP FORGE HAND-C Unavailable Unavailabl e Ching, Reginah W Kassidy DROP FORGE HAND-C Unavailable Unavailabl e Ching, Reginah W Kassidy DROP FORGE HAND-C Unavailable Unavailabl e Ching, Reginah W Kassidy DROP FORGE HAND-C Unavailable Unavailabl e Ching, Elijah Yi DROP FORGE HAND-C Unavailable Unavailabl e Ching, Elijah Yi DROP FORGE HAND-C Unavailable Unavailabl e Ching, Elijah Yi DROP FORGE HAND-C Unavailable Unavailabl e Ching, Elijah Yi DROP FORGE HAND-C Unavailable Unavailabl e Ching, Elijah Yi DROP FORGE HAND-C Unavailable Unavailabl e Ching, Elijah Yi DROP FORGE HAND-C Unavailable Unavailabl e Ching, Elijah Yi DROP FORGE HAND-C Unavailable Unavailabl e Ching, Elijah Yi DROP FORGE HAND-C Unavailable Unavailabl e Ching, Elijah Yi DROP FORGE HAND-C Unavailable Unavailabl e Ching, Elijah Yi DROP FORGE HAND-C Unavailable Unavailabl e Ching, Elijah Yi DROP FORGE HAND-C Unavailable Unavailabl e Ching, Elijah Yi DROP FORGE HAND-C Unavailable Unavailabl e Ching, Elijah Yi DROP FORGE HAND-C Unavailable Unavailabl e Ching, Elijah Yi DROP FORGE HAND-C Unavailable Unavailabl e Ching, Elijah Yi DROP FORGE HAND-C Unavailable Unavailabl e Ching, Elijah Yi DROP FORGE HAND-C Unavailable Unavailabl e Lino Marie MD Unavailable [...] Unavailable Frank, Lino Kahn MD Unavailable Unavailable Frakn, Lino Kahn MD Unavailable Unavailable Lino Marie [...] BROWN, L JANE Unavailable Unavailable DESJARLAIS, KAROLYN INHALATION THERAPIST Unavailable Unavailable DESJARLAIS, KAROLYN INHALATION THERAPIST Unavailable Unavailable DESJARLAIS, KAROLYN INHALATION THERAPIST Unavailable Unavailable DESJARLAIS, KAROLYN INHALATION THERAPIST Unavailable Unavailable DESJARLAIS, KAROLYN INHALATION THERAPIST Unavailable Unavailable DESJARLAIS, KAROLYN INHALATION THERAPIST Unavailable Unavailable DESJARLAIS, KAROLYN INHALATION THERAPIST Unavailable Unavailable DESJARLAIS, KAROLYN INHALATION THERAPIST Unavailable Unavailable DESJARLAIS, KAROLYN INHALATION THERAPIST Unavailable Unavailable MAHESH RECINOS Unavailable Unavailable Lester, Mavis DROP FORGE HAND DROP FORGE HAND Unavailable Unavailable Lester, A Mavis DROP FORGE HAND Unavailable Unavailable Lester, A Mavis DROP FORGE HAND Unavailable Unavailable Lester, A Mavis DROP FORGE HAND Unavailable Unavailable Lester, A Mavis DROP FORGE HAND Unavailable Unavailable Lester, A Mavis DROP FORGE HAND Unavailable Unavailable Lester, A Mavis DROP FORGE HAND Unavailable Unavailable Lester, A Mavis DROP FORGE HAND Unavailable Unavailable Lester, A Mavis DROP FORGE HAND Unavailable Unavailable Lester, A Mavis DROP FORGE HAND Unavailable Unavailable Lester, A Mavis DROP FORGE HAND Unavailable Unavailable Lester, A Mavis DROP FORGE HAND Unavailable Unavailable Lester, A Mavis DROP FORGE HAND Unavailable Unavailable Lester, A Mavis DROP FORGE HAND Unavailable Unavailable Lester, A Mavis DROP FORGE HAND Unavailable Unavailable Lester, A Mavis DROP FORGE HAND Unavailable Unavailable Lester, A Mavis DROP FORGE HAND Unavailable Unavailable Lester, A Mavis DROP FORGE HAND Unavailable Unavailable Lester, A Mavis DROP FORGE HAND Unavailable Unavailable Lester, A Mavis DROP FORGE HAND Unavailable Unavailable Lester, A Mavis DROP FORGE HAND Unavailable Unavailable Lester, A Mavis DROP FORGE HAND Unavailable Unavailable Lester, A Mavis DROP FORGE HAND Unavailable Unavailable Lester, A Mavis DROP FORGE HAND Unavailable Unavailable Lester, A Mavis DROP FORGE HAND Unavailable Unavailable Lester, A Mavis DROP FORGE HAND Unavailable Unavailable Lester, A Mavis DROP FORGE HAND Unavailable Unavailable Lester, A Mavis DROP FORGE HAND Unavailable Unavailable Lester, A Mavis DROP FORGE HAND Unavailable Unavailable BLUM, KATRIN Unavailable Unavailable Re-disclosure [...] is protected by Article 27-F of the [facility] Public Health law. If you continue you may have access to information: Regarding HIV / AIDS; Provided by facilities licensed or operated by the [facility] Office of Mental Health; or Provided by the [facility] Office for People With Developmental Disabilities. If such information is present, then the following [facility] mandated warning applies: This information [...] law may result in a fine or penitentiary sentence or both. A general authorization for the release of medical or other information is NOT sufficient authorization for further disc losure. Allergies and Adverse Reactions Type Description Substance Reaction Status Data Source(s ) Drug allergy Drug allergy AMOXICLIIN SWELLING, HIVES R [facility] Drug allergy olanzapine ol[facility]apine [facility] Drug allergy trimethoprim trimethoprim "BLISTERS IN MOUTH" [facility] Drug allergy sulfamethoxazole sulfamethoxazole "BLISTERS IN MOUTH" [facility] Drug allergy haloperidol haloperidol [facility] Drug allergy Sulfa (Sulfonamide Antibiotics) Sulfa (Sulfonami de Antibiotics) "BLISTERS IN MOUTH" [facility] Drug allergy Penicillins Penicillins SWELLING, HIVES SV R er [facility] Encounters Encounter Providers Location Date Indications Data Source(s ) Outpatient Attender: JANE EDWARD 04/20/2020 03:00:00 PM [facility] Outpatient [facility] 04/19/2020 12:00:00 AM EST eCW1 ([facility]) Outpatient [facility] 04/16/2020 12:00:00 AM EST eCW1 ([facility]) Outpatient Attender: FAHAD MOONEY 04/15/2020 09:45:[address] [facility] Outpatient [facility] 04/12/2020 12:00:00 AM EST eCW1 ([facility]) Outpatient [facility] 04/08/2020 12:00:00 AM EST eCW1 ([facility]) Outpatient [facility] 04/08/2020 12:00:00 AM EST eCW1 ([facility]) Outpatient [facility] 04/08/2020 12:00:00 AM EST eCW1 ([facility]) Outpatient [facility] 04/05/2020 12:00:00 AM EST eCW1 ([facility]) Outpatient Attender: NATHAN PAUL PA-C 03/30/2020 10:30:[address] [facility] Outpatient Attender: Shira Youngblood PA-C 03/30/2020 10:18 :[address] [facility] Outpatient [facility] 03/30/2020 12:00:00 AM EST eCW1 ([facility]) Outpatient Attender: JANE EDWARD 03/23/2020 02:00:00 PM [facility] Outpatient Attender: JANE EDWARD 03/17/2020 10:30:00 AM E [facility] Outpatient Attender: JANE EDWARD 03/11/2020 04:00:00 PM E [facility] Preadmit Attender: FAHAD MOONEY 03/11/2020 06:30:[address] [facility] Outpatient Attender: KAROLYN VAN NP 03/09/2020 03: 40:[address] [facility] Outpatient [facility] 03/03/2020 12:00:00 AM EST eCW1 ([facility]) Outpatient Attender: Shira Fernándezrer: Shira Youngblood PA-C EMERGENCY ROOM-LAB 03/01/2020 04:49:00 PM EST - 03/01/2020 04:49:[address] [facility] Outpatient Attender: Shira Youngblood PA-C 03/01/2020 03:45 :[address] [facility] Outpatient [facility] 03/01/2020 12:00:00 AM EST eCW1 ([facility]) Outpatient [facility] 03/01/2020 12:00:00 AM EST eCW1 ([facility]) Outpatient Attender: KAROLYN VAN INHALATION THERAPIST 02/18/2020 02: 40:[address] [facility] Outpatient Attender: Kassidy SERRANO 02/18/2020 10:00:[address] [facility] Outpatient [facility] 02/18/2020 12:00:00 AM EST eCW1 ([facility]) Outpatient [facility] 02/10/2020 12:00:00 AM EST eCW1 ([facility]) Outpatient [facility] 02/03/2020 12:00:00 AM EST eCW1 ([facility]) Outpatient [facility] 01/14/2020 12:00:00 AM EST eCW1 ([facility]) Outpatient [facility] 01/06/2020 12:00:00 AM EST eCW1 ([facility]) Outpatient Attender: JOHNATHON PATEL 01/02/2020 10:06:00 A M [facility] Outpatient [facility] 01/02/2020 12:00:00 AM EST eCW1 ([facility]) Outpatient Attender: JANE EDWARD 01/01/2020 02:30:00 PM E [facility] Outpatient Attender: KAROLYN VAN NP 12/24/2019 11: 00:00 AM EDT [facility] Outpatient Attender: Shira Youngblood PA-C 12/24/2019 08:24 :00 AM EDT [facility] Outpatient [facility] 12/24/2019 12:00:00 AM EDT eCW1 ([facility]) Outpatient Attender: JANE EDWARD 12/23/2019 01:54:00 PM E [facility] Outpatient [facility] 12/23/2019 12:00:00 AM EDT eCW1 ([facility]) Outpatient Attender: Mavis DIEGO 12/12/2019 11:3 5:02 AM EDT [facility] Outpatient Attender: JANE EDWARD 12/11/2019 03:00:00 PM E [facility] Outpatient [facility] 12/09/2019 12:00:00 AM EDT eCW1 ([facility]) Outpatient Attender: Mavis PATEL 12/05/2019 01:2 6:01 PM EDT [facility] Inpatient Attender: PRERNA RIOS MDAdmitter: PRERNA Hopson MD ER-3RD 12/05/2019 10:08:00 AM EDT - 12/10/2019 01:07:00 PM EDT [facility]ital Patient discharged. Outpatient Attender: NATHAN PAUL PA-C 12/05/2019 09:03:00 AM EDT [facility] Admission cancelled. Disregard status an d admitted date. Inpatient Attender: BEHZAD HOGAN MD Attender: BEHZAD HOGAN MDAttender: DIOGENES BUENO MDAttender: DIOGENES BUENO MDAdmitter: BEHZAD HOGAN MD ER-ICU 12/04/2019 11:06:00 PM EDT - 12/05/2019 10:03:00 AM EDT [facility] Patient discharged. Emergency Attender: GINGER Salaser: Melissa Youngblood PA-C EMERGENCY ROOM-ER 12/04/2019 04:21:00 PM EDT - 12/04/2019 08:40:00 PM EDT [facility] Patient discharged. Outpatient Attender: KAROLYN VAN NP 12/04/2019 03: 11:00 PM EDT [facility] Outpatient Attender: Mavis DIEGO FP 11/29/2019 07:0 4:03 PM EDT [facility] Outpatient Attender: JOHNATHON DIEGO FP 11/29/2019 07:04:01 P M EDT [facility] Outpatient Attender: Mavis DIEGO FP 11/24/2019 12:2 9:00 PM EDT [facility] Emergency Attender: EVONNE Garzasultant: STAFF NON 11/07/2019 12:19:00 AM EDT - 11/07/2019 04:20:00 AM EDT [facility] Patient discharged. Outpatient [facility] 11/07/2019 12:00:00 AM EDT eCW1 ([facility]) Outpatient Attender: Mavis DIEGO FP 11/04/2019 02:2 6:02 PM EDT [facility] Outpatient Attender: KAROLYN VAN NP 11/04/2019 11: 40:00 AM EDT [facility] Outpatient Attender: Mavis DIEGO FP 11/02/2019 01:2 6:00 PM EDT [facility] Outpatient Attender: Mavis DIEGO FP 10/31/2019 06:0 2:00 PM EDT [facility] Outpatient Attender: JOHNATHON DIEGO FP 10/31/2019 06:01:59 P M EDT [facility] Outpatient Attender: Mavis DIEGO FP 10/31/2019 06:0 1:03 PM EDT [facility] Outpatient Attender: JOHNATHON DIEGO FP 10/31/2019 06:01:01 P M EDT [facility] Outpatient Attender: Shira Youngblood PA-C 10/31/2019 09:06 :00 AM EDT [facility] Outpatient [facility] 10/31/2019 12:00:00 AM EDT eC1 ([facility]) Outpatient Attender: JANE EDWARD 10/27/2019 11:00:00 AM E [facility] Outpatient Attender: KAROLYN VAN NP 10/21/2019 03: 20:00 PM EDT [facility] Emergency Attender: EVONNE HINTONNANCIConsultant: STAFF NON 10/09/2019 02:09:00 AM EDT - 10/09/2019 03:44:00 AM EDT [facility] Patient discharged. Outpatient Attender: KATRIN BLUM 10/06/2019 09:37:00 AM ED [facility] Outpatient Attender: Mavis DIEGO FP 09/25/2019 04:0 9:01 PM EDT [facility] Outpatient Attender: Mavis DIEGO FP 09/25/2019 04:0 7:59 PM EDT [facility] Outpatient Attender: JOHNATHON DIEGO FP 09/23/2019 10:31:00 A M EDT [facility] Outpatient Attender: JOHNATHON DIEGO FP 09/23/2019 10:30:01 A M EDT [facility] Outpatient Attender: JOHNATHON DIEGO FP 09/23/2019 12:02:09 A M EDT [facility] Outpatient Attender: JOHNATHON DIEGO FP 09/22/2019 05:44:02 P M EDT [facility] Outpatient Attender: Mavis DIEGO FP 09/22/2019 05:4 2:59 PM EDT [facility] Outpatient Attender: JOHNATHON DIEGO FP 09/22/2019 02:38:00 P M EDT [facility] Outpatient Attender: Mavis DIEGO FP 09/22/2019 12:0 5:01 PM EDT [facility] Outpatient Attender: JOHNATHON DIEGO FP 09/22/2019 [...] 09/10/2019 11:0 6:01 PM EDT [facility] Outpatient Attender: JOHNATHON DIEGO FP 09/10/2019 11:06:01 P M EDT [facility] Outpatient Referrer: Femi Marie MD 08/15/2019 05:44:00 A M EDT [facility] Outpatient Attender: Mavis DIEGO FP 08/06/2019 09:5 2:01 AM EDT [facility] Outpatient Attender: JOHNATHON DIEGO FP 08/05/2019 07:41:16 P M EDT [facility] Outpatient Attender: Mavis DIEGO FP 08/05/2019 09:2 3:03 AM EDT [facility] Outpatient Attender: JOHNATHON DIEGO FP 08/05/2019 09:23:01 A M EDT [facility] Outpatient Attender: KATRIN BLUM 08/04/2019 09:42:00 AM ED [facility] Outpatient Attender: Mavis DIEGO FP 08/01/2019 10:3 1:00 AM EDT [facility] Outpatient Attender: Mavis DIEGO FP 08/01/2019 10:2 7:02 AM EDT [facility] Outpatient Attender: JOHNATHON DIEGO FP 07/30/2019 11:31:01 A M EDT [facility] Outpatient Attender: KATRIN BLUM 07/07/2019 03:30:00 PM ED [facility] Outpatient Attender: Mavis DIEGO FP 07/04/2019 10:3 3:02 AM EDT [facility] Outpatient Attender: Mavis DIEGO FP 07/03/2019 01:5 2:01 PM EDT [facility] Outpatient Attender: Mavis DIEGO FP 07/02/2019 10:2 8:02 AM EDT [facility] Outpatient Attender: Mavis DIEGO FP 07/01/2019 09:5 7:00 AM EDT [facility] Outpatient Attender: JOHNATHON DIEGO FP 07/01/2019 08:57:00 A M EDT [facility] Outpatient Referrer: Femi Marie MD 07/01/2019 04:55:00 A M EDT [facility] Outpatient Attender: JOHNATHON DIEGO FP 06/30/2019 04:21:00 P M EDT [facility] Outpatient Attender: Mavis TRUJILLOP FP 06/22/2019 06:0 1:59 PM EDT [facility] Outpatient Attender: Mavis Batista JOHNATHON FP 06/17/2019 03:3 2:01 PM EDT [facility] Outpatient Attender: JOHNATHON Batista JOHNATHON FP 05/27/2019 12:22:00 P M EDT [facility] Outpatient Attender: Mavis Batista JOHNATHON FP 05/24/2019 11:3 7:01 PM EDT [facility] Outpatient Attender: JOHNATHON Batista JOHNATHON FP 05/20/2019 12:36:01 P M EDT [facility] Outpatient Attender: JOHNATHON Batista JOHNATHON FP 05/20/2019 11:56:00 A M EDT [facility] Outpatient Attender: JOHNATHON Batista JOHNATHON PATEL 05/20/2019 11:42:01 A M EDT [facility] Outpatient Attender: JOHNATHON Batista JOHNATHON FP 05/01/2019 03:31:00 P M [facility] Outpatient Attender: Mavisgrant Batista JOHNATHON PATEL 04/28/2019 10:4 4:01 AM [facility] Outpatient Attender: KATRIN BLUM 04/21/2019 10:29:00 AM [facility] Outpatient Attender: JOHNATHON PATEL 04/15/2019 12:44:01 P M [facility] Outpatient Attender: MAHESH RECINOS 02/24/2019 01:46:00 PM [facility] Outpatient Attender: JANE EDWARD 02/21/2019 10:00:00 AM [facility] Outpatient Attender: MAHESH RECINOS 02/10/2019 02:18:00 PM [facility] Inpatient Attender: CHAO MARI RICHMONDttdoug harjinder: PRERNA RIOS MDAdmitter: PRERNA RIOS MD ER-3RD 12/23/2018 04:01:00 PM EDT - 12/26/2018 01:22:00 PM EDT [facility] Patient discharged. Inpatient Attender: ONDINA RAMIREZ MDAdmitter: ONDINA RAMIREZ MD E R-ICU 12/19/2018 05:26:00 PM EDT - 12/23/2018 03:42:00 PM EDT [facility] Patient discharged. Emergency Attender: MATIAS MIKE EMERGENCY ROOM-ER 03:51:00 PM EDT - 12/19/2018 04:47:00 PM EDT [facility] Patient discharged. Medications Medication Brand Name Start [...] {capsule_at_bedtime} active Doxepin HCl 25 MG eCW1 ([facility]) Doxepin Hydrochloride 25 MG Oral Capsule Doxepin HCl 25 MG D oxepin HCl 25 MG 03/09/2020 12:00:00 AM EST 1.0 {capsule_at_bedtime} active Doxepin HCl 25 MG eCW1 ([facility]) Doxepin Hydrochloride 25 MG Oral Capsule Doxepin HCl 25 MG D oxepin HCl 25 MG 03/09/2020 12:00:00 AM EST 1.0 {capsule_at_bedtime} active Doxepin HCl 25 MG eCW1 ([facility]) Doxepin Hydrochloride 25 MG Oral Capsule Doxepin HCl 25 MG D oxepin HCl 25 MG 03/09/2020 12:00:00 AM EST 1.0 {capsule_at_bedtime} active Doxepin HCl 25 MG eCW1 ([facility]) Doxepin Hydrochloride 25 MG Oral Capsule Doxepin HCl 25 MG D oxepin HCl 25 MG 03/09/2020 12:00:00 AM EST 1.0 {capsule_at_bedtime} active Doxepin HCl 25 MG eCW1 ([facility]) Doxepin Hydrochloride 25 MG Oral Capsule Doxepin HCl 25 MG D oxepin HCl 25 MG 03/09/2020 12:00:00 AM EST 1.0 {capsule_at_bedtime} active Doxepin HCl 25 MG eCW1 ([facility]) Doxepin Hydrochloride 25 MG Oral Capsule Doxepin HCl 25 MG D oxepin HCl 25 MG 03/09/2020 12:00:00 AM EST 1.0 {capsule_at_bedtime} active Doxepin HCl 25 MG eCW1 ([facility]) Doxepin Hydrochloride 25 MG Oral Capsule Doxepin HCl 25 MG D oxepin HCl 25 MG 03/09/2020 12:00:00 AM EST 1.0 {capsule_at_bedtime} active Doxepin HCl 25 MG eCW1 ([facility]) 8-2 mg 03/03/2020 12:00:00 AM [...] HCl 0.2 MG eCW1 ([facility]) Clonidine Hydrochloride 0.2 MG Oral Tablet Clonidine H Cl 0.2 MG Clonidine HCl 0.2 MG 12/24/2019 12:00:00 AM EDT 1.0 {tablet} activ e Clonidine HCl 0.2 MG eCW1 ([facility]) Clonidine Hydrochloride 0.2 MG Oral Tablet Clonidine H Cl 0.2 MG Clonidine HCl 0.2 MG 12/24/2019 12:00:00 AM EDT 1.0 {tablet} activ e Clonidine HCl 0.2 MG eCW1 ([facility]) Clonidine Hydrochloride 0.2 MG Oral Tablet Clonidine H Cl 0.2 MG Clonidine HCl 0.2 MG 12/24/2019 12:00:00 AM EDT 1.0 {tablet} activ e Clonidine HCl 0.2 MG eCW1 ([facility]) Clonidine Hydrochloride 0.2 MG Oral Tablet Clonidine H Cl 0.2 MG Clonidine HCl 0.2 MG 12/24/2019 12:00:00 AM EDT 1.0 {tablet} activ e Clonidine HCl 0.2 MG eCW1 ([facility]) Clonidine Hydrochloride 0.2 MG Oral Tablet Clonidine H Cl 0.2 MG Clonidine HCl 0.2 MG 12/24/2019 12:00:00 AM EDT 1.0 {tablet} activ e Clonidine HCl 0.2 MG eCW1 ([facility]) Clonidine Hydrochloride 0.2 MG Oral Tablet Clonidine H Cl 0.2 MG Clonidine HCl 0.2 MG 12/24/2019 12:00:00 AM EDT 1.0 {tablet} activ e Clonidine HCl 0.2 MG eCW1 ([facility]) Clonidine Hydrochloride 0.2 MG Oral Tablet Clonidine H Cl 0.2 MG Clonidine HCl 0.2 MG 12/24/2019 12:00:00 AM EDT 1.0 {tablet} suspe nded Clonidine HCl 0.2 MG eCW1 ([facility]) Clonidine Hydrochloride 0.2 MG Oral Tablet Clonidine H Cl 0.2 MG Clonidine HCl 0.2 MG 12/24/2019 12:00:00 AM EDT 1.0 {tablet} activ e Clonidine HCl 0.2 MG eCW1 ([facility]) Clonidine Hydrochloride 0.2 MG Oral Tablet Clonidine H Cl 0.2 MG Clonidine HCl 0.2 MG 12/24/2019 12:00:00 AM EDT 1.0 {tablet} activ e Clonidine HCl 0.2 MG eCW1 ([facility]) Clonidine Hydrochloride 0.2 MG Oral Tablet Clonidine H Cl 0.2 MG Clonidine HCl 0.2 MG 12/24/2019 12:00:00 AM EDT 1.0 {tablet} activ e Clonidine HCl 0.2 MG eCW1 ([facility]) Clonidine Hydrochloride 0.2 MG Oral Tablet Clonidine H Cl 0.2 MG Clonidine HCl 0.2 MG 12/24/2019 12:00:00 AM EDT 1.0 {tablet} activ e Clonidine HCl 0.2 MG eCW1 ([facility]) Clonidine Hydrochloride 0.2 MG Oral Tablet Clonidine H Cl 0.2 MG Clonidine HCl 0.2 MG 12/24/2019 12:00:00 AM EDT 1.0 {tablet} activ e Clonidine HCl 0.2 MG eCW1 ([facility]) Clonidine Hydrochloride 0.2 MG Oral Tablet Clonidine H Cl 0.2 MG Clonidine HCl 0.2 MG 12/24/2019 12:00:00 AM EDT 1.0 {tablet} suspe nded Clonidine HCl 0.2 MG eCW1 ([facility]) Clonidine Hydrochloride 0.2 MG Oral Tablet Clonidine H Cl 0.2 MG Clonidine HCl 0.2 MG 12/24/2019 12:00:00 AM EDT 1.0 {tablet} activ e Clonidine HCl 0.2 MG eCW1 ([facility]) Clonidine Hydrochloride 0.2 MG Oral Tablet Clonidine H Cl 0.2 MG Clonidine HCl 0.2 MG 12/24/2019 12:00:00 AM EDT 1.0 {tablet} activ e Clonidine HCl 0.2 MG eCW1 ([facility]) Clonidine Hydrochloride 0.2 MG Oral Tablet Clonidine H Cl 0.2 MG Clonidine HCl 0.2 MG 12/24/2019 12:00:00 AM EDT 1.0 {tablet} suspe nded Clonidine HCl 0.2 MG eCW1 ([facility]) Clonidine Hydrochloride 0.2 MG Oral Tablet Clonidine H Cl 0.2 MG Clonidine HCl 0.2 MG 12/24/2019 12:00:00 AM EDT 1.0 {tablet} activ e Clonidine HCl 0.2 MG eCW1 ([facility]) Clonidine Hydrochloride 0.2 MG Oral Tablet Clonidine H Cl 0.2 MG Clonidine HCl 0.2 MG 12/24/2019 12:00:00 AM EDT 1.0 {tablet} activ e Clonidine HCl 0.2 MG eCW1 ([facility]) 300 mg 12/13/2019 12:00:00 AM [...] {tablet_at_bedtime} active Clonazepam 0 .5 MG eCW1 ([facility]) Clonazepam 0.5 MG Oral Tablet Clonazepam 0.5 MG 11/04/2019 12:00:00 AM EDT 1.0 {tablet_at_bedtime} active Clonazepam 0 .5 MG eCW1 ([facility]) lisdexamfetamine dimesylate 50 MG Oral Capsule [Vyvans e] Vyvanse 50 MG Vyvanse 50 MG 11/04/2019 12:00:00 AM EDT 1.0 {capsule_in_the_morning} active Vyvanse 50 MG eCW1 ([facility]) Citalopram 20 MG Oral Tablet [Celexa] Celexa 20 MG Celexa 20 MG 11/04/2019 12:00:00 AM EDT 1.0 {tablet} active Ce elise 20 MG eCW1 ([facility]) Citalopram 20 MG Oral Tablet [Celexa] Celexa 20 MG Celexa 20 MG 11/04/2019 12:00:00 AM EDT 1.0 {tablet} active Ce elise 20 MG eCW1 ([facility]) lisdexamfetamine dimesylate 50 MG Oral Capsule [Vyvans e] Vyvanse 50 MG Vyvanse 50 MG 11/04/2019 12:00:00 AM EDT 1.0 {capsule_in_the_morning} active Vyvanse 50 MG eCW1 ([facility]) Citalopram 20 MG Oral Tablet [Celexa] Celexa 20 MG Celexa 20 MG 11/04/2019 12:00:00 AM EDT 1.0 {tablet} active Ce elise 20 MG eCW1 ([facility]) 75 mg 11/02/2019 12:00:00 AM EDT [...] 1.0 {tablet} active Risperdal 3 MG eCW1 ([facility]) Risperidone 3 MG Oral Tablet [Risperdal] Risperdal 3 MG Risp erdal 3 MG 07/07/2019 12:00:00 AM EDT 1.0 {tablet} active Risperdal 3 MG eCW1 ([facility]) Risperidone 3 MG Oral Tablet [Risperdal] Risperdal 3 MG Risp erdal 3 MG 07/07/2019 12:00:00 AM EDT 1.0 {tablet} active Risperdal 3 MG eCW1 ([facility]) Risperidone 3 MG Oral Tablet [Risperdal] Risperdal 3 MG Risp erdal 3 MG 07/07/2019 12:00:00 AM EDT 1.0 {tablet} active Risperdal 3 MG eCW1 ([facility]) Risperidone 2 MG Oral Tablet [Risperdal] Risperdal 2 MG Risp erdal 2 MG 07/07/2019 12:00:00 AM EDT 1.0 {tablet} active Risperdal 2 MG eCW1 ([facility]) Risperidone 3 MG Oral Tablet [Risperdal] Risperdal 3 MG Risp erdal 3 MG 07/07/2019 12:00:00 AM EDT 1.0 {tablet} active Risperdal 3 MG eCW1 ([facility]) Risperidone 3 MG Oral Tablet [Risperdal] Risperdal 3 MG Risp erdal 3 MG 07/07/2019 12:00:00 AM EDT 1.0 {tablet} active Risperdal 3 MG eCW1 ([facility]) Risperidone 3 MG Oral Tablet [Risperdal] Risperdal 3 MG Risp erdal 3 MG 07/07/2019 12:00:00 AM EDT 1.0 {tablet} active Risperdal 3 MG eCW1 ([facility]) Risperidone 3 MG Oral Tablet [Risperdal] Risperdal 3 MG Risp erdal 3 MG 07/07/2019 12:00:00 AM EDT 1.0 {tablet} active Risperdal 3 MG eCW1 ([facility]) Risperidone 3 MG Oral Tablet [Risperdal] Risperdal 3 MG Risp erdal 3 MG 07/07/2019 12:00:00 AM EDT 1.0 {tablet} active Risperdal 3 MG eCW1 ([facility]) Risperidone 2 MG Oral Tablet [Risperdal] Risperdal 2 MG Risp erdal 2 MG 07/07/2019 12:00:00 AM EDT 1.0 {tablet} active Risperdal 2 MG eCW1 ([facility]) Risperidone 3 MG Oral Tablet [Risperdal] Risperdal 3 MG Risp erdal 3 MG 07/07/2019 12:00:00 AM EDT 1.0 {tablet} active Risperdal 3 MG eCW1 ([facility]) Risperidone 3 MG Oral Tablet [Risperdal] Risperdal 3 MG Risp erdal 3 MG 07/07/2019 12:00:00 AM EDT 1.0 {tablet} active Risperdal 3 MG eCW1 ([facility]) Risperidone 3 MG Oral Tablet [Risperdal] Risperdal 3 MG Risp erdal 3 MG 07/07/2019 12:00:00 AM EDT 1.0 {tablet} active Risperdal 3 MG eCW1 ([facility]) Risperidone 3 MG Oral Tablet [Risperdal] Risperdal 3 MG Risp erdal 3 MG 07/07/2019 12:00:00 AM EDT 1.0 {tablet} active Risperdal 3 MG eCW1 ([facility]) Risperidone 3 MG Oral Tablet [Risperdal] Risperdal 3 MG Risp erdal 3 MG 07/07/2019 12:00:00 AM EDT 1.0 {tablet} active Risperdal 3 MG eCW1 ([facility]) Risperidone 3 MG Oral Tablet [Risperdal] Risperdal 3 MG Risp erdal 3 MG 07/07/2019 12:00:00 AM EDT 1.0 {tablet} active Risperdal 3 MG eCW1 ([facility]) Risperidone 3 MG Oral Tablet [Risperdal] Risperdal 3 MG Risp erdal 3 MG 07/07/2019 12:00:00 AM EDT 1.0 {tablet} active Risperdal 3 MG eCW1 ([facility]) Risperidone 2 MG Oral Tablet [Risperdal] Risperdal 2 MG Risp erdal 2 MG 07/07/2019 12:00:00 AM EDT 1.0 {tablet} active Risperdal 2 MG eCW1 ([facility]) Risperidone 3 MG Oral Tablet [Risperdal] Risperdal 3 MG Risp erdal 3 MG 07/07/2019 12:00:00 AM EDT 1.0 {tablet} active Risperdal 3 MG eCW1 ([facility]) Risperidone 3 MG Oral Tablet [Risperdal] Risperdal 3 MG Risp erdal 3 MG 07/07/2019 12:00:00 AM EDT 1.0 {tablet} active Risperdal 3 MG eCW1 ([facility]) Risperidone 3 MG Oral Tablet [Risperdal] Risperdal 3 MG Risp erdal 3 MG 07/07/2019 12:00:00 AM EDT 1.0 {tablet} active Risperdal 3 MG eCW1 ([facility]) 8-2 mg 06/27/2019 12:00:00 AM EDT [...] TABLET BY MOUTH EVERY DAY SOLD: 06/18/2019 [facility] Clonidine Hydrochloride 0.1 MG Oral Tablet [...] BY MOUTH NEEDED FOR ANXIETY DAILY [facility] 1,000 mg 01/01/2019 12:00:00 AM EST [...] BY MOUTH TWICE A DAY SOLD: 04/15/2019 [facility] Insurance Providers Payer name Policy type / Coverage type Policy ID Covered democrat ID Covered democrat's relationship to dick Policy Dick Plan Information [facility] [id number] SP [id number] [facility] [id number] S [id number] [facility] MEDICAID [id number] S [id number] [facility](MCAID) O [id number] S [id number] [facility] MEDICAID [id number] S [id number] [facility] MEDICAID [id number] S [id number] Managed Care [facility] Community Plan P [id number] S [id number] Medicaid S [id number] [facility] [id number] SP [id number] [facility] [id number] S [id number] [facility] [id number] SP [id number] [facility] PLAN [id number] [phone] MEDICAID [id number] SP [id number] Managed Care [facility] Plan P [id number] S [id number] MEDICAID [id number] S [id number] MEDICAID [id number] S [id number] MEDICAID PROF FEES [id number] MEDICAID [id number] S [id number] [facility] [id number] S [id number] Medicaid S [id number] S [id number] Managed Care - Community Plan [facility] P [id number] S [id number] [facility] [place] [facility] DEPT [id number] SP [id number] Medicaid P [id number] S [id number] SELF PAY ONLY [id number] SP [id number] [facility] [id number] SP [id number] [facility] NEUROPSY[facility]OLOGIST DEPT [id number] SP [id number] SELF PAY UNAVAILABLE SP UNAVAILA BLE Self Pay P UNAVAILABLE S UNAVAILA BLE Medicaid P [id number] S [id number] [facility] S UNAVAILA BLE Managed Care - Community Plan [facility] P [id number] S [id number] Medicaid S UNAVAILABLE S UNAVAILA BLE Problems, Conditions, and Diagnoses Code Display Name Description Problem Type Effective Dates Data Source(s) F19.10 Polysubstance abuse Polysubstance abuse Problem 0 03/11/2020 12:00:00 AM EST eCW1 ([facility]) F19.11 [id number] History of drug abuse Problem 03/01/2020 12: 00:00 AM EST eCW1 ([facility]) K14.6 [id number] Tongue sore Problem 03/01/2020 12:00:[address] eCW1 ([facility]) F19.10 [id number] Substance abuse Problem 12/24/2019 12:00:00 AM EDT eCW1 ([facility]) F50.81 [id number] Binge eating disorder Problem 11/04/2019 12: 00:00 AM EDT eCW1 ([facility]) G56.03 [id number] Carpal tunnel syndrome, bilateral Pr oblem 10/31/2019 12:00:00 AM EDT eCW1 ([facility]) R13.12 [id number] Oropharyngeal dysphagia Problem 10/31/2019 1 2:00:00 AM EDT eCW1 ([facility]) F17.200 [id number] Tobacco dependence Problem 10/31/2019 12:00: 00 AM EDT eCW1 ([facility]) E66.9 [id number] Obesity (BMI 30.0-34.9) Problem 0 10/31/2019 12:00:00 AM EDT eCW1 ([facility] jimena) Z68.30 [id number] BMI 30.0-30.9,adult Problem 10/31/2019 12:00 :00 AM EDT eCW1 ([facility]) K21.9 [id number] Gastroesophageal ref lux disease, esophagitis presence not specified Problem 10/31/2019 12:00:00 AM EDT eCW1 [facility] K92.0 Hematemesis Hematemesis - cause unknown 020 05:42:44 PM EDT [facility] I80.9 Phlebitis and thrombophlebitis of unspec ified site Phlebitis and thrombophlebitis of unspecified site 05/20/2019 12:34:09 PM EDT [facility] right AC and right tibia F15.10 Other stimulant abuse, uncomplicated OTH ER STIMULANT ABUSE, UNCOMPLICATED Diagnosis 03/30/2020 10:30:00 AM [facility] F19.10 Other psychoactive substance abuse, unco mplicated OTHER PSYCHOACTIVE SUBSTANCE ABUSE, UNCOMPLICATED Diagnosis 03/30/2020 10:30:00 AM [facility] F43.12 Post-traumatic stress disorder, chronic POST-TRAUMATIC STRESS DISORDER, CHRONIC Diagnosis 03/30/2020 10:30:00 AM [facility] l T14.8XXA OTHER INJURY OF UNSPECIFIED BODY REGION, INITIAL E OTHER INJURY OF UNSPECIFIED BODY REGION, INITIAL E Diagnosis 03/30/2020 10:18:00 AM [facility] K13.79 Other lesions of oral mucosa OTHER LESIONS OF ORAL MUC SINA Diagnosis 03/30/2020 10:18:[address] [facility] F25.9 Schizoaffective disorder, unspecified SC HIZOAFFECTIVE DISORDER, UNSPECIFIED Diagnosis 03/30/2020 10:18:00 AM [facility] l A04.72 ENTEROCOLITIS D/T CLOSTRIDIUM DIFFICILE, NOT SPCF RECUR ENTEROCOLITIS D/T CLOSTRIDIUM DIFFICILE, NOT SPCF RECUR Diagnosis 10:18:[address] [facility] F11.21 Opioid dependence, in remission OPIOID DEPENDENC E, IN REMISSION Diagnosis 03/23/2020 02:00:[address] [facility] F50.81 BINGE EATING DISORDER BINGE EATING DISORDER Diagnosis 03/23/2020 02:00:[address] [facility] F90.0 Attention-deficit hyperactivity disorder , predominantly inattentive type ATTN-DEFCT HYPERACTIVITY DISORDER, PREDOM INATTENT Diagnosis 01/2021 03:40:[address] [facility] Z13.29 Encounter for screening for other suspec keven endocrine disorder ENCOUNTER FOR SCREENING FOR OTH SUSPECTE Diagnosis 03/01/2020 04:49:00 PM [facility] Z82.61 Family history of arthritis FAMILY HISTORY OF ARTHRITI S Diagnosis 03/01/2020 03:45:[address] [facility] Z13.220 Encounter for screening for lipoid disor ders ENCOUNTER FOR SCREENING FOR LIPOID DISORDERS Diagnosis 03/01/2020 03:45:00 PM [facility] Z82.69 Family history of other dise ases of the musculoskeletal system and connective tissue FAMILY HISTORY OF DISEASES OF THE MS SYS AND CONNE Diagnosis 03/01/2020 03:45:[address] [facility] R50.9 Fever, unspecified FEVER, UNSPECIFIED Diagnosis 05/2020 03:45:[address] [facility] 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, in r emission OTHER PSYCHOACTIVE SUBSTANCE ABUSE, IN REMISSION Diagnosis 03/01/2020 03:45:00 PM [facility] G56.03 CARPAL TUNNEL SYNDROME, BILATERAL UPPER LIMBS CARPAL TUNNEL SYNDROME, BILATERAL UPPER LIMBS Diagnosis 03/01/2020 03:45:00 [facility] K21.9 Gastro-esophageal reflux disease without esophagitis GASTRO-ESOPHAGEAL REFLUX DISEASE WITHOUT ESOPHAGITIS Diagnosis 02/18/2020 10:00:00 AM [facility] F12.10 Cannabis abuse, uncomplicated CANNABIS ABUSE, UNCOMPLI CATED Diagnosis 12/24/2019 11:00:00 AM [facility] F11.10 Opioid abuse, uncomplicated OPIOID ABUSE, UNCOMPLICATE D Diagnosis 12/24/2019 11:00:00 AM [facility] R13.12 Dysphagia, oropharyngeal phase DYSPHAGIA, OROPHARYNGEA L PHASE Diagnosis 12/24/2019 08:24:00 AM [facility] M54.2 Cervicalgia CERVICALGIA Diagnosis 12/24/2019 08:24:00 AM [facility] T50.914D POISONING BY MULTIPLE UNSP DRUG/MEDS/BIO L SUBST, U POISONING BY MULTIPLE UNSP DRUG/MEDS/BIOL SUBST, U Diagnosis 12/24/2019 08:24:00 AM [facility] F19.20 Other psychoactive substance dependence, uncomplicated OTHER PSYCHOACTIVE SUBSTANCE DEPENDENCE, UNCOMPLIC Diagnosis 12/05/2019 10:08:00 AM [facility] R45.851 Suicidal ideations SUICIDAL IDEATIONS Diagnosis 10/2019 10:08:00 AM [facility] G40.909 Epilepsy, unspecified, not intractable, without status epilepticus EPILEPSY, UNSP, NOT INTRACTABLE, WITHOUT STATUS EP Diagnosis 10/2019 10:08:00 AM [facility] F32.2 Major depressive disorder, s rito episode, severe without psychotic features MAJOR DEPRESSV DISORD, SINGLE EPSD, SEV Diagnosis 12/05/2019 10:08:00 AM [facility] F25.1 Schizoaffective disorder, depressive typ e SCHIZOAFFECTIVE DISORDER, DEPRESSIVE TYPE Diagnosis 12/05/2019 10:08:00 AM [facility] james Y92.[address] or not applicable UNSPECIFIED PLACE OR NOT APPLICABLE Diagnosis 12/04/2019 11:06:00 PM [facility] X58.XXXA Exposure to other specified factors, ini tial encounter EXPOSURE TO OTHER SPECIFIED FACTORS, INITIAL ENCOU Diagnosis 12/04/2019 11:06:00 P M [facility] T42.6X2A Poisoning by other antiepile ptic and sedative-hypnotic drugs, intentional self-harm, initial encounter POISN BY OT ANTIEPLPTC AND SED-HYPNTC DRUGS, SLF- Diagnosis 12/04/2019 11:06:00 PM [facility] james T40.902A Poisoning by unspecified psy chodysleptics [hallucinogens], intentional self-harm, initial encounter POISONING BY UNSP PSYCHODYSLEPTICS, SELF-HARM, INI Diagnosis 12/04/2019 11:06:00 PM [facility] K21.9 Gastro-esophageal reflux disease without esophagitis GASTRO-ESOPHAGEAL REFLUX DISEASE WITHOUT ESOPHAGIT Diagnosis 12/04/2019 11:06:00 PM [facility] F90.9 Attention-deficit hyperactivity disorder , unspecified type ATTENTION- DEFICIT HYPERACTIVITY DISORDER, UNSPECIF Diagnosis 12/04/2019 11:06:00 PM [facility] F43.10 Post-traumatic stress disorder, unspecif ied POST-TRAUMATIC STRESS DISORDER, UNSPECIFIED Diagnosis 12/04/2019 11:06:00 PM [facility] F43.23 Adjustment disorder with mixed anxiety a nd depressed mood ADJUSTMENT DISORDER WITH MIXED ANXIETY AND DEPRESS Diagnosis 12/04/2019 11:06:00 PM [facility] T42.4X2A Poisoning by benzodiazepines, intentiona l self-harm, initial encounter POISONING BY BENZODIAZEPINES, INTENTIONAL SELF-HARM, INIT Diagnosis 12/04/2019 11:06:00 PM [facility] Y93.89 Activity, other specified ACTIVITY, OTHER SPECIFIED Di agnosis 12/04/2019 04:21:00 PM [facility] Y92.[address] the place of o ccurrence of the external cause OT PLACES THE PLACE OF OCCURRENCE OF THE EXTER Diagnosis 09/2019 04:21:00 PM [facility] Z79.899 Other jail (current) drug therapy O THER ASSISTED (CURRENT) DRUG THERAPY Diagnosis 12/04/2019 04:21:00 PM [facility] Z20.828 Contact with and (suspected) exposure to other viral communicable diseases CONTACT W AND EXPOSURE TO OT VIRAL COMMUNICABLE D Diagnosis 12/04/2019 04:21:00 PM [facility] F17.210 Nicotine dependence, cigarettes, uncompl icated NICOTINE DEPENDENCE, CIGARETTES, UNCOMPLICATED Diagnosis 12/04/2019 04:21:[address] [facility] T50.992A Poisoning by other drugs, me dicaments and biological substances, intentional self-harm, initial encounter POISONING BY OT DRUG/MEDS/BIOL SUBST, SELF-HARM, Diagnosis 12/04/2019 04:21:00 PM [facility] R45.851 Suicidal ideations SUICIDAL IDEATIONS Diagnosis 09/2019 04:21:00 PM [facility] N14440 Nicotine dependence, cigarettes, uncompl icated Nicotine dependence, cigarettes, uncomplicated Diagnosis 11/07/2019 12:19:00 AM [facility] F1510 Other stimulant abuse, uncomplicated Other stimu lant abuse, uncomplicated Diagnosis 11/07/2019 12:19:00 AM [facility] D18145 Other psychoactive substance abuse with psychoactive substance-induced anxiety disorder Other psychoactive substance abuse with psychoactive substance- induced anxiety disorder Diagnosis 11/07/2019 12:19:00 AM [facility] R110 Nausea Nausea Diagnosis 11/07/2019 12:19:00 AM ED [facility] Z76.89 Persons encountering health services in other specified circumstances PERSONS ENCOUNTERING HEALTH SERVICES IN OT CIRCUM Diagnosis 05/2019 09:06:00 AM [facility] Z71.9 Counseling, unspecified COUNSELING, UNSPECIFIED Diagno sis 10/31/2019 09:06:00 AM [facility] Z68.30 Body mass index (BMI) 30.0-30.9, adult B BOB MASS INDEX (BMI) 30.0-30.9, ADULT Diagnosis 10/31/2019 09:06:00 AM [facility] E66.9 Obesity, unspecified OBESITY, UNSPECIFIED Diagnosis 10/31/2019 09:06:00 AM [facility] R56.9 Unspecified convulsions UNSPECIFIED CONVULSIONS Diagno sis 10/31/2019 09:06:00 AM [facility] F909 Attention-deficit hyperactivity disorder , unspecified type Attention- deficit hyperactivity disorder, unspecified type Diagnosis 10/08 02:09:00 AM [facility] J029 Acute pharyngitis, unspecified Acute pharyngitis, unsp ecified Diagnosis 10/09/2019 02:09:00 AM [facility] F15.11 OTHER STIMULANT ABUSE, IN REMISSION OTHER STIMUL ANT ABUSE, IN REMISSION Diagnosis 02/24/2019 01:46:[address] [facility] Z72.0 Tobacco use TOBACCO USE Diagnosis 02/21/2019 10:00:[address] [facility] Surgeries/Procedures Procedure Description Date Indications Data Source(s) Psychological Tests, Neurobehavioral and Cognitive Status 12/06/2019 12:00:00 AM [facility] Introduction of Electrolytic and Water B alance Substance into Peripheral Vein, Percutaneous Approach 12/04/2019 12:00:00 AM [facility] Results ID Date Data Source [id number] 04/10/2020 02:50:00 PM EST [facility] Name Value Range Interpretation Code Description Data [place] rce(s) Supporting Document(s) SARS coronavirus 2 RNA [Presence] in Res piratory specimen by MARK with probe detection POSITIVE [facility] This lab was ordered by [facility] a nd reported by . ID Date Data Source [id number] 04/09/2020 02:48:00 AM EST [facility] Name Value Range Interpretation Code Description Data [place] rce(s) Supporting Document(s) SARS COVID ANTIGEN POSITIVE [facility] This lab was ordered by [facility] a nd reported by . ID Date Data Source [id number] 04/09/2020 02:46:00 AM EST [facility] Name Value Range Interpretation Code Description Data [place] rce(s) Supporting Document(s) SARS COVID ANTIGEN POSITIVE [facility] This lab was ordered by [facility] a nd reported by . ID Date Data Source [id number] 03/04/2020 12:09:00 PM [facility] Name Value Range Interpretation Code Description Data [place] rce(s) Supporting Document(s) FAZAL DIRECT Negative Negative [facility] Performed at: RN - [facility] [address] [id number] Director: Elsa Garcia MD, Phone: [phone] ID Date Data Source [id number] 03/04/2020 12:05:00 PM EST [facility] Name Value Range Interpretation Code Description Data [place] rce(s) Supporting Document(s) FAZAL Direct Negative Negative [facility] ID Date Data Source [id number] 03/03/2020 08:50:00 AM EST [facility] ADD ON TEST Name Value Range Interpretation Code Description Data [place] rce(s) Supporting Document(s) RHEUMATOID FACTOR SCREEN NEGATIVE NEGATIVE [facility] ID Date Data Source [id number] 03/03/2020 08:37:00 AM EST [facility] ADD ON TEST Name Value Range Interpretation Code Description Data [place] rce(s) Supporting Document(s) FREE T4 1.0 ng/dL 0.76-1.46 [facility] ID Date Data Source [id number] 03/03/2020 08:37:00 AM EST [facility] ADD ON TEST Name Value Range Interpretation Code Description Data [place] rce(s) Supporting Document(s) TSH 0.422 uIU/mL 0.36-3.74 [facility] ID Date Data Source [id number] 03/03/2020 08:11:00 AM EST [facility] ADD ON TEST Name Value Range Interpretation Code Description Data [place] rce(s) Supporting Document(s) C REACTIVE PROTEIN 15.6 mg/L 0.0-3.0 [facility] ID Date Data Source [id number] 03/03/2020 08:11:00 AM EST [facility] ADD ON TEST Name Value Range Interpretation Code Description Data [place] rce(s) Supporting Document(s) GLUCOSE 85 mg/dL 74-106 [facility] BLOOD UREA NITROGEN 11 mg/dL 7-18 [facility] ital CREATININE 0.88 mg/dL 0.6-1.0 [facility] SODIUM 135 mmol/L 136-145 L [facility] POTASSIUM 4.1 mmol/L 3.5-5.1 [facility] CHLORIDE 99 mmol/L 98-107 [facility] CO2 26 mmol/L 21-32 [facility] CALCIUM 8.8 mg/dL 8.5-10.1 [facility] ANION GAP 10.0 mmol/L 5-12 [facility] GLOMERULAR FILTRATION RATE 74 mL/min [facility] GFR IS CALCULATED IN mL/min/1.73m2 LISANDRA L FUNCTION: >90MILDLY DECREASED: 60-89MILDY TO MODERATELY DECREASED: 45-59 MODERATELY TO SEVERELY DECREASED: 30-44SEVERELY DECREASED: 15-29RENAL FAILURE: <15 AST 32 U/L 15-37 [facility] ALT 32 U/L 12-78 [facility] ALKALINE PHOSPHATASE 65 U/L 46-116 [facility] pital TOTAL BILIRUBIN 0.2 mg/dL 0.2-1.0 [facility] TOTAL PROTEIN 6.9 g/dl 6.4-8.2 [facility] ALBUMIN 3.9 gm/dL 3.4-5.0 [facility] ID Date Data Source [id number] 03/01/2020 05:46:00 PM [facility] Name Value Range Interpretation Code Description Data [place] rce(s) Supporting Document(s) CHOLESTEROL 193 mg/dL 0-200 [facility] TRIGLYCERIDES 86 mg/dL 0-150 [facility] LDL CHOLESTEROL 111 mg/dL 0-100 H [facility] HDL CHOLESTEROL 65 mg/dL 40-60 H [facility] CHOL/HDL RATIO 3.0 0.0-5.0 [facility] ID Date Data Source [id number] 02/29/2020 10:40:00 AM EST [facility] Name Value Range Interpretation Code Description Data [place] rce(s) Supporting Document(s) SARS coronavirus 2 RNA [facility] This lab was ordered by [facility] and reported by [facility]. ID Date Data Source [id number] 12/10/2019 11:15:00 AM EDT [facility] [address] [id number] NAME: BRUNA LEE#: [id number] PHYSICIAN: PRERNA RIOS MD ADM. DATE: 12/05/19ACCOUNT #: [id number] DISCH. DATE:DISCHARGE SUMMARYIDENTIFICATION: A 34-year-old female with [...] [place] The last time in our service with [...] ABUSE: None.SOCIAL HISTORY: The patient is from [place], did not finish high school.She was in [...] The patient was discharged with the medications Duvmrr49 mg p.o. daily, Neurontin 600 mg p.o. [...] on that direction too. At this point, ayahwiroxanna be enrolled in outpatient chemical dependence in [place].MENTAL STATUS EXAMINATION: The patient is pleasant, cooperative. [...] Dictated: 12/10/2019 09:34:34Date Transcribed: 12/10/2019 10:15:05JV/PUSJob #: [id number]: 12/10/19 0934 Electronically SignedTRANS:12/10/19 1115 PRERNA RIOS MDTRANS BY:IATDAFUNMI SIGNED:12/10/19REPORT COPY TO: Name Value Range Interpretation Code Description Data [place] rce(s) Supporting Document(s) ID Date Data Source [id number] 12/10/2019 06:43:00 AM EDT [facility] [address] [id number] NAME: BRUNA LEE#: [id number] PHYSICIAN: PRERNA RIOS [facility] #: [id number] ADM. DATE: 12/05/19PATIENT : 89 DISCH. DATE: [...] follow-upappointmentDischarge InformationDISCHARGE INFORMATION* Thank you for choosing [facility] and allowing us toserve you* Our Goal is to provide the highest quality of care.* This discharge information is to help you better understand your diagnosisand medication* Avoid taking ciyl-kqr-kwhagcv medicines unless approved by your physician.* Take your medications as prescribed. DO NOT stop any medications unlessapproved first* Weigh yourself daily. Report any gain of 5 lbs in a week* 24 Hour Crisis HOTLINE available: Call Reachout at [phone]* Chem. Dependency: Walk in Clinics [place] ([phone]) and [place] ([phone]) anytime Sunday thru Sunday 8 to 10am. [place] ([phone]) anytimeSunday thru Sunday 8 to 10am. [facility] ([phone]) Sunday or Sunday from 8to 10am (Bring $30 to [facility] pt) SMOKIN G CESSATION* Smoking is dangerous to your health. It delays the healing process, andworks against your medications. Not smoking will improve your health* Our hospital participates with the Opt-to-Quit program. You will be contactedafter discharge by the [facility] Smoker's Quitline for support with tobaccocessation. You have the option once contacted to refuse this service.* You can also go online to [email or web address]. Free nicotine replacementsare available Attention* You should [...] Completed NoiStopiStop completed NoEND ENDDICT: 12/10/1941 Electronically SignedTRANS:12/10/19642 PRERNA RIOS MDTRANS BY:DATE SIGNED:12/10/19TIME SIGNED: 0644REPORT COPY TO: Name Value Range Interpretation Code Description Data [place] rce(s) Supporting Document(s) ID Date Data Source [id number] 12/10/2019 02:15:00 AM EDT [place], [place] [address]PATIENT NAME: BRUNA LEE#: [id number] PHYSICIAN: PRERNA RIOS MD ADM. DATE: 12/05/19PROGRESS NOTE DATE: 12/09/19 RM.#: [id number] #: [id number] NOTEIDENTIFICATION: A 34-year-old female with mood disorder [...] Dictated: 12/09/2019 10:52:52Date Transcribed: 12/10/2019 01:15:28JV/Basia #: [id number]: 12/09/19 1052 Electronically SignedTRANS:12/10/19 0215 PRERNA RIOS MDTRANS BY:IATDATE SIGNED:12/10/19REPORT COPY TO: Name Value Range Interpretation Code Description Data [place] rce(s) Supporting Document(s) ID Date Data Source [id number] 12/08/2019 11:58:00 AM EDT [facility] Name Value Range Interpretation Code Description Data [place] rce(s) Supporting Document(s) URINE COLOR Yellow [facility] UAPR Clear [facility] UGLU Negative NEGATIVE [facility] URINE BILIRUBIN Negative NEGATIVE [facility] UKET Negative NEGATIVE [facility] USG 1.015 1.010-1.025 [facility] UBLO Negative NEGATIVE [facility] UpH 8.0 5.0-8.0 [facility] UPRO Negative Negative [facility] UUB 0.2 mg/dL 0.2-1.0 [facility] UNIT Negative Negative [facility] ULEU Negative Negative [facility] ID Date Data Source [id number] 12/09/2019 04:57:00 AM EDT [address] [id number] NAME: BRUNA LEE#: [id number] PHYSICIAN: PRERNA RIOS MD ADM. DATE: 12/05/19PROGRESS NOTE DATE: 12/08/19 .#: [id number] #: [id number] NOTEIDENTIFICATION: A 34-year-old female with mood disorder, [...] Dictated: 12/08/2019 10:30:51Date Transcribed: 12/09/2019 03:57:49JV/RAVJob #: [id number]: 12/08/19 1030 Electronically SignedTRANS:12/09/19 0457 PRERNA RIOS MDTRANS BY:IATDATE SIGNED:12/09/19REPORT COPY TO: Name Value Range Interpretation Code Description Data [place] rce(s) Supporting Document(s) ID Date Data Source [id number] 12/06/2019 11:02:00 PM EDT [address] [address]GWPCJHG NAME: BRUNA LEE#: [id number] PHYSICIAN: PRERNA RIOS MD ADM. DATE: 12/05/19ACCOUNT #: [id number] .#: [id number] ASSESSMENTIDENTIFICATION: A 34-year-old female with schizoaffective disorder andpolysubstance dependence.CHIEF COMPLAINT: "I don't know why I am here."REASON FOR ADMISSION: Post-overdose.HISTORY OF PRESENT ILLNESS: According to the records and our interview, thepatient was brought to our service after being in ICU and the medical floorfor an overdose. The patient went to the outpatient clinic in [facility] and she passed out in consultation. [...] 2 weeks ago, that she was in [place] inpatient service for 5 days forthat.The patient [...] into detail.SOCIAL HISTORY: The patient is from [place]. Did not finish high school.She is in [...] inpatient rehab.Date Dictated: 12/06/2019 12:22:47Date Transcribed: 12/06/2019 22:02:14JLeydi/Lilli #: [id number]: 12/06/19 1222 Electronically Signed TRANS:12/06/19 2302 PRERNA RIOS MDTRANS BY:ADE SIGNED:12/07/19REPORT COPY TO: Name Value Range Interpretation Code Description Data [place] rce(s) Supporting Document(s) ID Date Data Source [id number] 12/05/2019 02:12:00 AM EDT [facility] Name Value Range Interpretation Code Description Data [place] rce(s) Supporting Document(s) CKI 109 U/L 17-150 [facility] ID Date Data Source [id number] 12/05/2019 04:49:00 PM EDT [facility] [place] [id number] HEALTH HISTORY AND PHYSICALPATIENT NAME: BRUNA LEE MR#: [id number] PHYSICIAN: PRERNA RIOS MDAUTHOR: Diogenes Bueno MD [...] and [facility]Past Medical/Surgical HistoryPast Medical/Surgical HistoryMedical ProblemsAcute [...] psych serviceDATE SIGNED: 12/05/19 Electronically SignedTIME SIGNED: 165 DIOGENES BUENO MD Name Value Range Interpretation Code Description Data [place] rce(s) Supporting Document(s) ID Date Data Source [id number] 12/05/2019 09:48:00 AM EDT [address] [address]UAGZWXUOL SUMMARYPATIENT NAME: BRUNA LEE MR#: [id number] PHYSICIAN: BEHZAD HOGAN MDAUTHOR: Diogenes Bueno MD DATE: 12/04/19 #: ICUDISCHARGE DATE: 12/05/19 : 87Summary of HospitalizationReason for AdmissionOverdose on xanax, gabapentin, bath saltsHospital Excuzw25 yo F who was admitted for an [...] and the [facility].Diagnoses (Current Visit)Problem List1. Drug overdose2. [...] taking the following medications:Gabapentin* (Neurontin*) 400 MG [id number] MILLIGRAM Orally DAILYContinue taking these medications:LEVETIRACETAM (LEVETIRACETA) 1,000 MG TABLET1,000 MILLIGRAM Orally TWICE DAILYQty = 60Amitriptyline HCl (Amitriptyline HCl) 100 MG [id number] MILLIGRAM Orally DAILYSUCRALFATE (Carafate*) 1 GM TABLET1 GM Orally TWICE DAILYcloniDINE* (CLONIDINE*) 0.1 MG TABLET0.1 MILLIGRAM Orally TWICE DAILYOmeprazole Magnesium (Prilosec Otc) 20 MG TABLET.DR20 MILLIGRAM Orally DAILYrispERIdone (RISPERDAL*) 0.5 MG TABLET2 MILLIGRAM Orally TWICE DAILYATOMOXETINE HCL (Strattera) 18 MG [id number] MILLIGRAM Orally DAILYBUPRENORPHINE HCL/NALOXONE HCL (Suboxone 8 MG-2 MG Sl Film) 1 EACH FILM1 MILLIGRAM SublinguallySUMATRIPTAN SUCCINATE (Imitrex*) 50 MG TRPALI19 MILLIGRAM Orally DAILY NEEDED as needed for HeadacheOxcarbazepine (Trileptal) 150 MG [id number] MILLIGRAM Orally TWICE DAILYDischarge Activity: As tolerated, No liftingDischarge diet: RegularFollow-upFollow up with the mental health doctor [facility] spent by provider to complete discharge > 30 minutesDATE SIGNED: 12/05/19 Electronically SignedTIME SIGNED: 1912 DIOGENES BUENO MD Name Value Range Interpretation Code Description Data [place] rce(s) Supporting Document(s) ID Date Data Source [id number] 12/05/2019 09:46:00 AM EDT [place], [place] [address]PATIENT NAME: BRUNA LEE#: [id number] PHYSICIAN: YI KLEIN #: [id number] ADM. DATE: 12/04/19PATIENT : 89 DISCH. DATE: [50}DISCHARGE SUMMARYMedical Discharge PlanNicotine Replacement TherapyPrescribed at discharge Rx not offered at DCReason not offered [facility] Care InstructionsDischarge Activity: As tolerated, No liftingDischarge diet: RegularProblem ListMedical ProblemsAcute respiratory failure (Acute)Drug abuse (Chronic)Drug overdose (Acute)SchizophreniaSeizure disorder (Chronic,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 Rate: 999 mL/hr---- Dispensed: 1000 mL bagStop Site: #1 left wrist03:55 11/07/2019Mara Gonzalez R.N.Given ZOFRAN [IVP] (ONDANSETRON HCL) Zofran 4 mg IVP X 1 dose: 4 mg02:22 11/07/2019 Dose: 4 mg IVP (NOW x1)Meme Maldonado R.N. Site: #1 left wrist Name Value Range Interpretation Code Description Data [place] rce(s) Supporting Document(s) ID Date Data Source [id number] 11/07/2019 12:19:[address] [facility] [address] [facility] Emergency Department [address] [place] [address] Phone #: ext- [phone] 11/07/2019 00:19 Patient: [...] to plan of care. [address] [facility] Emergency Department [address] [place] [address] Phone #: ext- [phone] 11/07/2019 00:19 Patient: [...] Tiredness Inability to sleep [address] [facility] Emergency Department [address] [place] [address] Phone #: ext- [phone] 11/07/2019 00:19 Patient: BRUNA LEE Sex: F [...] provider or go to a local bookstore andreolivia the many books and tapes available on this subject.Follow-up careIf you feel that your anxiety is not responding to self- help measures, contact your healthcare provideror make an appointment with a counselor. You may need short-term psychological counseling andtemporary medicine to help you manage stress. [address] [facility] Emergency Department [address] [place], [place] [address] Phone #: ext- [phone] 11/07/2019 00:19 Patient: BRUNA LEE Sex: F [...] relieved by rest and mild pain reliever [id number] [employer]. [address] [place] [address]. All rights reserved. This information is not intended as asubstitute for professional medical care. Always follow your healthcare professional's instructions. You have been given the following additional information: Anxiety Reaction(Electronically signed by Evonne Anne M.D. 11/07/2019 05:23) Name Value Range Interpretation Code Description Data [place] rce(s) Supporting Document(s) ID Date Data Source [id number] 11/07/2019 12:19:[address] [facility] 1 Clinical Report - Nurses [facility] Emergency Department [address] [place] [address] Phone #: ext- [phone] 11/07/2019 00:19 Patient: BRUNA LEE Sex: F : 1985 Age: 34yTRIAGEHistorian: EMS and patient.Triage time: 00:24 11/07/2019.Chief Complaint: NAUSEA and ("face swelling").Onset. (states that it has been going on all day.). ( states that she has been sleeping a lot and used Molly2 days ago. 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 --00:27 11/07/19 Meme [...] Sublingual (Film 8-2 mg), daily. --00:28 11/07/19 eMme Maldonado R.N. clonazePAM Oral (new rx starts tomorrow). --00:28 11/07/19 Carlos Maldonado R.N.AllergiesPenicillins.(hives)Sulfa Antibiotics. --00:28 11/07/19 Meme Maldonado R.N.HistoryPAST MEDICAL HX: Gastroesophageal reflux disease. Peptic ulcer disease. Last normal menstrualperiod unknown- last month. 2 Clinical Report - Nurses [facility] Emergency Department [address] [place] [address] Phone #: ext- [phone] 11/07/2019 00:19 Patient: [...] the lab and given to lab LW). --02:11/07/19 Meme Maldonado R.N. 02:22 11/07/2019 Zofran (Ondansetron [...] pump. Allergies 3 Clinical Report - Nurses [facility] Emergency Department [address] [place] [address] Phone #: [phone] ext- [phone] 11/07/2019 00:19 Patient: BRUNA LEE Sex: F : 1985 Age: 34y verified and confirmed 5 rights. IV patency established. IV site checked: no pain, redness, or swelling. IV flushed thoroughly pre- and post-medication administration. Information reviewed with patient including reason for taking this medication. Verbalizes understanding. --02:11/07/19 Mmee Maldonado R.N. Checked patient name and birthdate: patient confirmed. Clean catch urine collected with return of yellow-colored bruna-colored clear urine; sample sent to lab for urinalysis and drug screen. Specimen labeled in the presence of the patient. --02:27 11/07/19 Meme Maldonado R.N. The patient is calm and resting quietly. ( [place] provided. Reassurance given to pt. Lights dimmed. [...] Patient verbalized understanding. Written instructions provided in Jamaican. The patient was discharged by the physician. [...] rce(s) Supporting Document(s) ID Date Data Source [id number] 11/07/2019 12:19:[address] [facility] 1 Clinical Report - Physicians/Mid Levels 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 2 Clinical Report - Physicians/Mid Levels [facility] Emergency Department [address] [place] [address] Phone #: ext- [phone] 11/07/2019 00:19 Patient: BRUNA LEE Sex: F [...] (Reference) 3 Clinical Report - Physicians/Mid Levels [facility] Emergency Department [address] [place] [address] Phone #: ext- [phone] 11/07/2019 00:19 Patient: [...] Male GFR Interprentation 20-49 yrs >60 mL/min Ncknlm00-97 yrs >56 mL/min Normal 60- 69 yrs >49 mL/min Normal 70-79yrs>42 mL/min Normal 80 and above >35 mL/min Normal Female GFRInterpretation 20-39 yrs >60 mL/min Normal 40-49 yrs >58 mL/minNormal 50-59 yrs >51 mL/min Normal 60-69 yrs >45 mL/min Normal 4 Clinical Report - Physicians/Mid Levels [facility] Emergency Department [address] [place] [address] Phone #: ext- [phone] 11/07/2019 00:19 Patient: BRUNA LEE Sex: F : 1985 Age: 42z22-57 yrs >39 mL/min Normal 80 and above >32 mL/min NormalBeta-HCG, Qual Serum: (JENN: 11/07/2019 02:15) ( [facility] 11/07/2019 03:20) Final results Test Result Flag Units (Reference) HCG SERUM QUAL NEGATIVE (NORMAL: NEGAT HCG SERUM QL REENTER NEGATIVE (NORMAL: NEGAT { KIT LOT # [id number] ){ KIT EXP [id number] ){ PROCEDURAL CONTROL VALID)CPK: (JENN: 11/07/2019 02:15) ( [facility] 11/07/2019 03:15) Final results Test Result Flag Units (Reference) CPK 313 H U/L (30 - 170)Drug Screen-Urine: (JENN: 11/07/2019 02:00) ( [facility] 11/07/2019 03:15) Final results Test Result Flag [...] PRESUMPTIVE POSITIVE CONFIRMATION WILL BE PERFORMED AT [facility].Urinalysis: (JENN: 11/07/2019 02:00) ( [facility] 11/07/2019 02:28) Final results Test Result Flag [...] Indicate 5 Clinical Report - Physicians/Mid Levels [facility] Emergency Department [address] [place] [address] Phone #: ext- [phone] 11/07/2019 00:19 Patient: [...] was requested by: Evonne Anne Reference #: [id number] Others' Prescriptions Patient Name: Bruna LeeBirth Date: 1985 Address: [address] [place], [place] [address]Sex: Female Rx Written Rx Dispensed Drug Quantity Days Supply Prescriber Name Payment Method Dispenser 10/28/2019 10/28/2019 buprenorphine-naloxone 8-2 mg sl film 56 28 Jose J Mao MD Medicaid [facility] 09/30/2019 09/30/2019 buprenorphine-naloxone 8-2 mg [...] J Bundy MD Medicaid [facility] 05/01/2019 05/01/2019 [...] table. 6 Clinical Report - Physicians/Mid Levels [facility] Emergency Department [address] [place] [address] Phone #: ext- [phone] 11/07/2019 00:19 [id number] Sex: F : 1985 Age: 34y 03:19 [...] Keppra Oral. 7 Clinical Report - Physicians/Mid [facility] Emergency Department [address] [place] [address] Phone #: ext- [phone] 11/07/2019 00:19 Patient: [...] rce(s) Supporting Document(s) ID Date Data Source [id number] 11/07/2019 03:20:[address] [facility] Name Value Range Interpretation Code Description Data [place] rce(s) Supporting Document(s) HCG SERUM QUAL NEGATIVE NORMAL: NEGATIVE [facility] HCG SERUM QL REENTER NEGATIVE NORMAL: NEGATIVE [facility] { KIT LOT # [id number] ){ KIT EXP DATE 12-08-20 ){ PROCEDURAL CONTROL VALID ) ID Date Data Source [id number] 11/07/2019 03:15:[address] [facility] Name Value Range Interpretation Code Description Data [place] rce(s) Supporting Document(s) Creatine kinase [Enzymatic activity/volume] in Serum or Plasma 3 13 U/L 30 - [address] [facility] ID Date Data Source [id number] 11/07/2019 03:14:[address] [facility] Name Value Range Interpretation Code Description Data [place] rce(s) Supporting Document(s) COMPREHENSIVE METABOLIC PANEL [facility] COMPREHENSIVE METABOLIC PANEL Sodium [Moles/volume] in Serum or Plasma 140 mEq/L 134 - 153 [facility] Potassium [Moles/volume] in Serum or Plasma 3.8 mEq/L 3.6 - 5.0 [facility] Chloride [Moles/volume] in Serum or Plasma 100 mEq/L 98 - 107 [facility] Carbon dioxide, total [Moles/volume] in Serum or Plasma 30 MEQ/L 22 - 30 [facility] Glucose [Mass/volume] in Serum or Plasma 98 MG/DL 65 - 110 [facility] BUN 14 MG/DL 7 - 21 [facility] al Creatinine [Mass/volume] in Serum or Plasma 0.7 MG/DL 0.7 - 1.5 [facility] BUN/CREAT 20 8 - 27 [facility] Protein [Mass/volume] in Serum or Plasma 5.9 G/DL 6.3 - 8.[address] [facility] Albumin [Mass/volume] in Serum or Plasma 3.6 G/DL 3.9 - 5.[address] [facility] Globulin [Mass/volume] in Serum by calculation 2.3 GM/DL 2.4 - 3.[address] [facility] A/G RATIO 1.6 0.8 - 2.0 [facility] Calcium [Mass/volume] in Serum or Plasma 9.2 MG/DL 8.4 - 10.2 [facility] Bilirubin.total [Mass/volume] in Serum or Plasma <0.7 MG/DL 0.2 - 1.3 [facility] Alkaline phosphatase [Enzymatic activity/volume] in Serum or Plasma 62 U/L 38 - 126 [facility] Aspartate aminotransferase [Enzymatic activity/volume] in Serum or Plasma 302 U/L 5 - [address] [facility] Alanine aminotransferase [Enzymatic activity/volume] in Seru m or Plasma 125 U/L 7 - [address] [facility] Anion gap 3 in Serum or Plasma 10.0 mmol/L 8.0 - 16.0 [facility] AGE 34 yrs [place] [facility] >60 mL/min [facility] ital AFR AMER GFR >60 mL/min [facility] Ho spital Male GFR In [...] >32 mL/min Normal ID Date Data Source [id number] 11/07/2019 02:27:[address] [facility] Name Value Range Interpretation Code Description Data [place] rce(s) Supporting Document(s) CBC W/AUTOMATED DIFF [facility] COMPLETE BLOOD COUNT Leukocytes [#/volume] in Blood by Automated count 8.3 10^3/uL 4.2 - [address] [facility] Erythrocytes [#/volume] in Blood by Automated count 3.87 10^6/uL 4. 20 - 5.[address] [facility] Hemoglobin [Mass/volume] in Blood 11.6 g/dL 12.0 - 16.[address] [facility] Hematocrit [Volume Fraction] of Blood by Automated count 36.0 % 3 7.0 - 47.[address] [facility] Erythrocyte mean corpuscular volume [Entitic volume] by Auto mated count 93.0 fL 81.0 - 101 [facility] Erythrocyte mean corpuscular hemoglobin [Entitic mass] by Automated count 30.0 pg 27.0 - 34.0 [facility] Erythrocyte mean corpuscular hemoglobin concentration [Mass/volume] by Automated count 32.2 g/dL 31.0 - 36.0 [facility] Erythrocyte distribution width [Ratio] by Automated count 13.3 % 11.5 - 14.5 [facility] Platelets [#/volume] in Blood by Automated count 271 10^3/uL 150 - [address] [facility] Platelet mean volume [Entitic volume] in Blood by Automated count 9.5 fL 7.4 - 10.4 [facility] Neutrophils/100 leukocytes in Blood by Automated count 82.6 % 37. 0 - 80.[address] [facility] Lymphocytes/100 leukocytes in Blood by Manual count 14.3 % 25.0 - 40.[address] [facility] Monocytes/100 leukocytes in Blood by Automated count 1.6 % 3.0 - 8.[address] [facility] Eosinophils/100 leukocytes in Blood by Automated count 0.8 % 0.0 - 7.0 [facility] Basophils/100 leukocytes in Blood by Automated count 0.2 % 0.0 - 2.5 [facility] %IG 0.5 % 0.0 - 0.0 [facility] %NRBC 0.0 % 0.0 - 0.0 [facility] al Neutrophils [#/volume] in Blood by Automated count 6.85 10^3/uL 2.00 - 6.90 [facility] Lymphocytes [#/volume] in Blood by Automated count 1.19 10^3/uL 0.60 - 3.40 [facility] Monocytes [#/volume] in Blood by Automated count 0.13 10^3/uL 0.00 - 0.90 [facility] Eosinophils [#/volume] in Blood by Automated count 0.07 10^3/uL 0.00 - 0.70 [facility] Basophils [#/volume] in Blood by Automated count 0.02 10^3/uL 0.00 - 0.20 [facility] #IG 0.04 10^3/uL 0.00 - 0.10 [facility] #NRBC 0.00 10^3/uL 0.00 - 0.00 [facility] MANUAL DIFF NOT INDICATED [facility] RBC MORPH NOT INDICATED [facility] spital ID Date Data Source [id number] 11/07/2019 03:14:[address] [facility] Name Value Range Interpretation Code Description Data [place] rce(s) Supporting Document(s) DRUG SCREEN URINE [facility] URINE DRUG SCREEN Amphetamine [Presence] in Urine by Screen method PRESUMP POS LISANDRA L: NEGATIVE [facility] BARBITURATES NEGATIVE NORMAL: NEGATIVE [facility] BENZO NEGATIVE NORMAL: NEGATIVE [facility] COCAINE NEGATIVE NORMAL: NEGATIVE [facility] Tetrahydrocannabinol [Presence] in Urine NEGATIVE NORMAL: NEGATIVE [facility] OPIATES NEGATIVE NORMAL: NEGATIVE [facility] Phencyclidine [Presence] in Urine by Screen method NEGATIVE NOR MAL: NEGATIVE [facility] \\BLDo\\URINE DRUG SCR EEN INTERPRETATION\\BLDx\\ THE CUTOFFF LEVELS FOR DETECTION ARE FOLLOWS: AMPHETAMINES 1000 ng/ml BARBITUARATES 200 ng/ml BENZODIAZEPINES 100 ng/ml THC 50 ng/ml PHENCYCLIDINE 25 ng/ml OPIATES 300 ng/ml COCAINE 300 ng/ml ALL POSITIVES ARE CONSIDERED PRESUMPTIVE POSITIVE CONFIRMATION WILL BE PERFORMED AT PHYSICIAN REQUEST. ID Date Data Source [id number] 11/07/2019 02:27:[address] [facility] Name Value Range Interpretation Code Description Data [place] rce(s) Supporting Document(s) [facility] SOURCE R [facility] al COLOR yellow NORMAL: Yellow [facility] CLARITY clear NORMAL: Clear [facility] sp[facility] Specific gravity of Urine by Test strip 1.020 1.001 - 1.030 [facility] pH 6 5 - 9 [facility] al Glucose [Mass/volume] in Urine by Test strip NORM NORMAL: Negat [facility] Bilirubin.total [Presence] in Urine by Test strip NEG NORMAL: Negative [facility] Ketones [Presence] in Urine by Test strip NEG NORMAL: Negative [facility] Protein [Mass/volume] in Urine by Test strip NEG NORMAL: Negat [facility] Nitrite [Presence] in Urine by Test strip NEG NORMAL: Negative [facility] BLOOD NEG NORMAL: Negative [facility] Leukocyte esterase [Presence] in Urine by Test strip NEG LISANDRA L: Negative [facility] Urobilinogen [Mass/volume] in Urine by Test strip 1 less kenna n 1.0 mg/dL [facility] MICROSCOPIC Not Indicate [facility] ospital ID Date Data Source [id number] 10/30/2019 10:27:00 AM EDT [facility] Name Value Range Interpretation Code Description Data [place] rce(s) Supporting Document(s) BG FASTING 132 mg/dL 70-100 H [facility] y Health TSH 0.526 microintl units/mL 0.358-3.740 N [facility] ID Date Data Source [id number] 10/30/2019 10:27:00 AM EDT [facility] Name Value Range Interpretation Code Description Data [place] rce(s) Supporting Document(s) HCT 37.6 % 36.0-47.0 N [facility] HGB 11.8 g/dL 12.0-15.5 L [facility] MCH 31.4 G/DL pg 32.0-36.5 L [facility] awde Health MCHC 29.9 PG % 27.0-33.0 N [facility] PLATELETS 209 10 10*3/mm3 150-450 N [facility] RBC 3.94 10 10*6/mm3 4.00-5.40 L [facility] RDW 12.6 % 11.5-14.5 N [facility] WBC TOTAL 4.5 4.0-10.0 N [facility] ID Date Data Source [id number] 10/13/2019 03:25:00 PM EDT [facility] Name Value Range Interpretation Code Description Data [place] rce(s) Supporting Document(s) HCT 40.7 % 36.0-47.0 N [facility] HGB 13.3 g/dL 12.0-15.5 N [facility] MCH 32.7 G/DL pg 32.0-36.[address] [facility] MCHC 30.4 PG % 27.0-33.0 N [facility] PLATELETS 288 10 10*3/mm3 150-450 N [facility] RBC 4.37 10 10*6/mm3 4.00-5.40 N [facility] RDW 12.4 % 11.5-14.5 N [facility] WBC TOTAL 8.7 4.0-10.0 N [facility] ID Date Data Source [id number] 10/09/2019 02:09:[address] [facility] [address] [facility] Emergency Department [address] [place] [address] Phone #: ext- [phone] 10/09/2019 02:08 Patient: [...] rce(s) Supporting Document(s) ID Date Data Source [id number] 10/09/2019 02:09:[address] [facility] [address] [facility] Emergency Department [address] [place] [address] Phone #: ext [phone] 10/09/2019 02:08 Patient: BRUNA LEE Sex: [...] Name Value Range Interpretation Code Description Data [facility] Supporting Document(s) ID Date Data Source [id number] 10/09/2019 02:09:[address] [facility] [address] [facility] Emergency Department [address] [place] [address] Phone #: ext [phone] 10/09/2019 02:08 Patient: BRUNA LEE Sex: F : 1985 Age: 34yWeight: 81.1 kgHeight/Length: 60 inBMI: 34.9ALLERGIES: Penicillins, Sulfa Antibiotics Date/Time Medication Administered Medication OrderedGiven IBUPROFEN [PO] Ibuprofen 800 mg PO X1 dose: 43721:39 10/09/2019 Dose: 800 mg Tablets PO mg (NOW x1)Meme Maldonado R.N. Name Value Range Interpretation Code Description Data [place] e(s) Supporting Document(s) ID Date Data Source [id number] 10/09/2019 02:09:[address] [facility] [address] [facility] Emergency Department [address] [place] [address] Phone #: ext- [phone] 10/09/2019 02:08 Patient: [...] INFORMATIONViral Pharyngitis (Sore Throat) [address] [facility] Emergency Department [address] [place] [address] Phone #: ext- [phone] 10/09/2019 02:08 Patient: [...] glass of warm water. [address] [facility] Emergency Department [address] [place] [address] Phone #: ext- [phone] 10/09/2019 02:08 Patient: [...] breathing or noisy breathing [address] [facility] Emergency Department [address] [place] [address] Phone #: ext- [phone] 10/09/2019 02:08 Patient: BRUNA LEE Sex: F : 1985 Age: 34y Muffled voice New rash Other symptoms are getting worse [id number] [employer]. [address] [place], [place] [address]. All rights reserved. This information is not intended as asubstitute for professional medical care. Always follow your healthcare professional's instructions. You have been given the following additional information: Pharyngitis, Viral(Electronically signed by Evonne Anne M.D. 10/09/2019 03:51) Name Value Range Interpretation Code Description Data [place] rce(s) Supporting Document(s) ID Date Data Source [id number] 10/09/2019 02:09:[address] [facility] 1 Clinical Report - Nurses [facility] Emergency Department [address] [place] [address] Phone #: ext- [phone] 10/09/2019 02:08 Patient: BRUNA LEE Sex: F : 1985 Age: 34yTRIAGEHistorian: EMS and patient.Triage time: 02:08 10/09/2019.Chief Complaint: SORE THROAT.This started just prior to arrival. The patient has had a hoarse voice.Treatment STUDENT ACTIVITIES DIRECTOR:Took Tylenol. (arthritis kind).EMS Treatment STUDENT ACTIVITIES DIRECTOR:See EMS report.SEPSIS SCREEN: SIRS Screen: heart rate greater than 90. Sepsis Screen negative. No suspected orconfirmed signs of infection present. --02:14 10/09/19 Meme Maldonado R.N.02:11 10/09/19. BP: 130/86. MAP: 100. HR: 105. RR: 18. O2 saturation: 100%. Temp: 98.5 F. Pain levelnow: 10. --02:14 10/09/19 Meme Maldonado R.N.Treatment STUDENT ACTIVITIES DIRECTOR:(Seen at [facility] for this issue within the last few days, states that they could not figure out what was wrongwith her.). --02:28 10/09/19 Meme Maldonado R.N.Acuity: LEVEL 4.02:11 10/09/19. --07:29 10/09/19 Meme Maldonado R.N.Weight: 81.1 kg measured. Height/Length: 60 inches Per Patient. BMI: 34.9. --02:08 10/09/19 Meme Jordan R.N.MedicationsRisperDAL Oral. --02:10/09/19 Meme Maldonado R.N. Keppra Oral. --02:10/09/19 Meme Maldonado R.N. Strattera Oral. --02:15 10/09/19 Meme Maldonado R.N. Amitriptyline HCl Oral. --02:15 10/09/19 Meme Maldonado R.N. Gabapentin Oral. --02:15 10/09/19 Meme Maldonado R.N. Stomach pill, name unknown. --02:10/09/19 Meme Maldonado R.N. Suboxone Sublingual (Film 8-2 mg), daily. --02:10/09/19 Meme Maldonado R.N.AllergiesPenicillins.(hives) 2 Clinical Report - Nurses [facility] Emergency Department [address] [place] [address] Phone #: ext- [phone] 10/09/2019 02:08 Patient: [...] Dental decay. 3 Clinical Report - Nurses [facility] Emergency Department [address] [place] [address] Phone #: ext- [phone] 10/09/2019 02:08 Patient: BRUNA LEE Sex: F [...] Patient verbalized understanding. Written instructions provided in Jamaican. The patient was discharged by the physician. [...] rce(s) Supporting Document(s) ID Date Data Source [id number] 10/09/2019 02:09:[address] [facility] 1 Clinical Report - Physicians/Mid Levels [facility] Emergency Department [address] [place] [address] Phone #: ext- [phone] 10/09/2019 02:08 Patient: BRUNA LEE Sex: F [...] EMS, pt is well known to [facility] ER for multiple ER visits for multiple somatic and psychiatric complaints; tonight, she complains of sore throat, hoarse voice, bugs on her skin, etc.; pt has therapist in [place]). Similar symptoms previously. Patient has had similar [...] Medications: 2 Clinical Report - Physicians/Mid Levels [facility] Emergency Department [address] [place] [address] Phone #: ext- [phone] 10/09/2019 02:08 Patient: BRUNA LEE Sex: F [...] saturation: 100%. Temp: 98.5F. Pain level now: 12/05. Have been reviewed. Oxygen [...] PROCEDURAL CONTROL VALID ){ KIT LOT # [id number] ){ KIT EXP DATE [id number] )The 3 Clinical Report - Physicians/Mid Levels [facility] Emergency Department [address] [place] [address] Phone #: ext- [phone] 10/09/2019 02:08 Patient: [...] was requested by: Evonne Anne Reference #: [id number] Others' Prescriptions Patient Name: Bruna LeeBirth Date: 1985 Address: [address] [place], [place] [address]Sex: Female Rx Written Rx Dispensed Drug Quantity Days Supply Prescriber Name Payment Method Dispenser 09/30/2019 09/30/2019 buprenorphine-naloxone 8-2 mg sl film 56 28 Jose J Moa MD Medicaid [facility] 08/28/2019 08/28/2019 buprenorphine-naloxone 8-2 mg sl film 56 28 MoJose J dumont MD Medicaid [facility] 07/23/2019 07/29/2019 buprenorphine-naloxone 8-2 mg sl film 56 28 Mayco, Jose J Bundy MD Medicaid [facility] 06/27/2019 06/27/2019 buprenorphine-naloxone 8-2 mg sl film 56 28 Moehs, Jose J Bundy MD Medicaid [facility] 05/29/2019 05/30/2019 buprenorphine-naloxone 8-2 mg sl film 56 28 Moehs, Jose J Bundy MD [facility] 05/01/2019 05/01/2019 buprenorphine-naloxone [...] J Bundy MD Medicaid [facility] 4 Clinical Report - Physicians/Mid Levels [facility] Emergency Department [address] [place] [address] Phone #: [phone] own- [phone] 10/09/2019 02:08 Patient: BRUNA LEE Sex: F : 1985 Age: 34y 11/12/2018 11/12/2018 suboxone 8 mg-2 mg sl film 56 28 MoehJose J hopson MD Medicaid [facility] 10/15/2018 10/15/2018 suboxone 8 mg-2 mg sl film 56 28 MoehsJose J MD Medicaid [facility] * [...] unknown*. 5 Clinical Report - Physicians/Mid Levels [facility] Emergency Department [address] [place] [address] Phone #: ext- [phone] 10/09/2019 02:08 Patient: [...] Value Range Interpretation Code Description Data [facility] rce(s) Supporting Document(s) ID Date Data Source [id number] 10/09/2019 03:02:[address] [facility] Name Value Range Interpretation Code Description Data [facility] rce(s) Supporting Document(s) RAPID STREP NEGATIVE NORMAL: NEGATIVE [facility] RAPID STREP REENTER NEGATIVE NORMAL: NEGATIVE [facility] { PROCEDURAL CONTROL VALID ){ KIT LOT # [id number] ){ KIT EXP DATE 623290 )The Strep A 2 assay utilizes isothermal [...] basis for treatment. ID Date Data Source [id number] 09/22/2019 02:34:28 PM EDT [facility] Measurements & CalculationsHeight: 61 inches [...] (ER) or urgent care clinic? Yes - [facility] Have you seen another healthcare provider? Yes - [facility] Have you seen a dentist? NoIntake [...] medication for a non-medical reason? 0Performed by: Demetrai Elliott MA, September 22, 2019 2:37 PMPatient [...] and this is different. Sees [facility] for her mental health issues (schizophrenia) and feels that this is going well.HPI performed by: Francesco Ritchie MD, September 22, 2019 2:52 PMTransitions of Care InboundProblem ReviewProblem List was reviewed and/or updated during this visit.Medication Reconciliation & ReviewMedication List was reviewed and/or updated during this visit, including review of any vlny-qab-yhbqwuk medications, herbal therapies, and/or supplements.Allergy ReviewAllergy List [...] Plan Problems:Added: Hematemesis - cause unknown (ICD-578.0) (TZC87-Z52.0) Assessment: Instructions: Currently asymptomatic but worrisome enough to warrant further workup.Avoid NSAIDs and refer to GI.Return to ER if this occurs again.Assessed:Peripheral neuropathy (ICD-356.9) (SGC36-Q71.9) Assessment: Instructions: I am not sure where [...] (Critical)Orders:Adult - Ofc Vst, EST, Level III [CPT-25174] Gastroenterology Consult [CPT-45135] Medications:GABAPENTIN 400 MG ORAL CAPSULE (GABAPENTIN) take one tablet by mouth three times daily as needed #90[Capsule] x 0 Route:ORAL Entered and Authorized by: Francesco Ritchie MD Method used: Electronically to COM [facility] #15* (retail) [address] [place] [address] Note to Pharmacy: Route: ORAL; Indications: PERIPHERAL NEUROPATHY;BILATERAL CARPAL TUNNEL SYNDROME RxID: [id number] 1000 MG ORAL TABLET (LEVETIRACETAM) 1 pill po bid #60[Tablet] x 0 Route:ORAL Entered and Authorized by: Francesco Ritchie MD Method used: Electronically to [facility] #15* (retail) [address] [place] [address] Note to Pharmacy: Route: ORAL; RxID: [id number] SUCCINATE 50 MG ORAL TABLET (SUMATRIPTAN SUCCINATE) take one tab po at the onset of headache. may repeat dose x one if no releif after two hours. #15[Tablet] x 0 Entered and Authorized by: Francesco Ritchie MD Method used: Electronically to [facility] #15* (retail) [address] [place], [place] [address] RxID: [id number] OMEPRAZOLE 20 MG ORAL TABLET DELAYED RELEASE (OMEPRAZOLE) One tablet by mouth every day #30[Tablet] x 2 Route:ORAL Entered and Authorized by: Francesco Ritchie MD Method used: Electronically to COM [facility] #15* (retail) [address] [place] [address] Note to Pharmacy: Route: ORAL; RxID: [id number] DOXYCYCLINE MONOHYDRATE 100 MG ORAL TABLET (DOXYCYCLINE MONOHYDRATE) take one tablet by mouth twice daily x 5 days #10[Tablet] x 0 Route:ORAL Entered by: Demetria Elliott MA Authorized by: Mavis DIEGO Method used: Electronically to COM [facility] #15* (retail) [address] [place] [address] RxID: [id number] signed by Francesco Ritchie MD on 09/22/2019 at 5:42 PM Name Value Range Interpretation Code Description Data [place] rce(s) Supporting Document(s) ID Date Data Source [id number] 09/10/2019 10:45:00 PM EDT [facility] Name Value Range Interpretation Code Description Data [place] rce(s) Supporting Document(s) BG FASTING 96 mg/dL 70-100 N [facility] y Health ID Date Data Source [id number] 09/10/2019 10:45:00 PM EDT [facility] Name Value Range Interpretation Code Description Data [place] rce(s) Supporting Document(s) HCT 37.4 % 36.0-47.0 [facility] HGB 12.1 g/dL 12.0-15.5 N [facility] MCH 32.4 G/DL pg 32.0-36.5 [facility] MCHC 30.2 PG % 27.0-33.0 [facility] PLATELETS 244 10 10*3/mm3 150-450 N [facility] RBC 4.01 10 10*6/mm3 4.00-5.40 [facility] RDW 12.8 % 11.5-14.5 [facility] WBC TOTAL 4.9 4.0-10.0 [facility] ID Date Data Source [id number] 05/20/2019 11:42:55 AM EDT [facility] Measurements & CalculationsHeight: 61 inches [...] you seen another healthcare provider? Yes - [facility] Have you seen a dentist? NoRate [...] with Dr Mao. HPI performed by: Mavis Batista [facility], May 20, 2019 12:08 PMTransitions of Care InboundProblem ReviewProblem List was reviewed and/or updated during this visit.Medication Reconciliation & ReviewMedication List was reviewed and/or updated during this visit, including review of any rdqv-wip-eexhgin medications, herbal therapies, and/or supplements.Allergy ReviewAllergy List [...] Problems:Added: Phlebitis and thrombophlebitis of unspecified site (UVV05-Y95.9): right AC and right tibia Assessment: Instructions: May continue warm compresses 3-4 times daily as needed. Please try to keep extremities elevated. We have sent a prescription to your pharmacy today. Please take medication as prescribed. Please report any major side effects.Phlebitis and thrombophlebitis of unspecified site (QTZ59-O34.9): right AC and right tibia Assessment: right foot and right forearmAssessed:Tobacco use (ICD-305.1) (NYI52-E16.0) Assessment: Instructions: Please continue to try to quit smoking.Health Screening (ICD-V70.0) (VUY84-S35.9) Assessment: Instructions: Fasting labs ordered for you today. Please return prior to your next visit to have labs drawn. Please fast for 8-10 hours prior.Substance abuse (ICD-305.90) (WKZ17-V20.10) Assessment: Instructions: Please try to avoid the [...] (Critical)BACTRIM (Critical)* SULFA ANTIBIOTICS (Critical)Orders:COMP METABOLIC PANEL [CPT-95512] CBC W/DIFF [CPT- 49914] HgBA1c [CPT-12195] LIPID PANEL [CPT-64961] TSH [CPT-73349] T-4 free [CPT- 55312] Vitamin D 250H Unspecified [CPT-74880] URINALYSIS [CPT-50093] VITAMIN B- 12 [CPT-02719] Folate (Folic Acid Serum) [CPT-50262] IRON [CPT-46768] Adult - Ofc Vst, EST, Level III [CPT-45611] Follow-Up Return to clinic: 2-3 weeks for follow up Additional Follow-Up: If symptoms worsen, please return to clinic or the ERClinical Visit Summary CompletedMedications:DOXYCYCLINE MONOHYDRATE 100 MG ORAL TABLET (DOXYCYCLINE MONOHYDRATE) take one tablet by mouth twice daily x 5 days #10[Tablet] x 0 Route:ORAL Entered and Authorized by: Mavis DIEGO Method used: Electronically to COM DEV #15* (retail) [address] [place] [address] Note to Pharmacy: Route: ORAL; Indications: PHLEBITIS AND THROMBOPHLEBITIS OF UNSPECIFIED SITE RxID: [id number] signed by Mavis DIEGO on 05/24/2019 at 11:37 PM ____ Name Value Range Interpretation Code Description Data [place] rce(s) Supporting Document(s) Procedure Social History Code Duration Value Status Description Data Source(s ) Smoking 03/30/2020 12:00:00 AM EST Current Smoker completed Curre nt Smoker eCW1 ([facility]) Smoking 03/30/2020 12:00:00 AM EST Current Smoker completed Curre nt Smoker eCW1 ([facility]) Smoking 03/30/2020 12:00:00 AM EST Current Smoker completed Curre nt Smoker eCW1 ([facility]) Smoking 03/30/2020 12:00:00 AM EST Current Smoker completed Curre nt Smoker eCW1 ([facility]) Smoking 03/30/2020 12:00:00 AM EST Current Smoker completed Curre nt Smoker eCW1 ([facility]) Smoking 03/30/2020 12:00:00 AM EST Current Smoker completed Curre nt Smoker eCW1 ([facility]) Smoking 03/30/2020 12:00:00 AM EST Current Smoker completed Curre nt Smoker eCW1 ([facility]) Smoking 03/30/2020 12:00:00 AM EST Current Smoker completed Curre nt Smoker eCW1 ([facility]) Smoking 03/01/2020 12:00:00 AM EST Current Smoker completed Curre nt Smoker eCW1 ([facility]) Smoking 03/01/2020 12:00:00 AM EST Current Smoker completed Curre nt Smoker eCW1 ([facility]) Smoking 03/01/2020 12:00:00 AM EST Current Smoker completed Curre nt Smoker eCW1 ([facility]) Smoking 02/18/2020 12:00:00 AM EST Current Smoker completed Curre nt Smoker eCW1 ([facility]) Smoking 12/24/2019 12:00:00 AM EDT Current Smoker completed Curre nt Smoker eCW1 ([facility]) Smoking 12/24/2019 12:00:00 AM EDT Current Smoker completed Curre nt Smoker eCW1 ([facility]) Smoking 12/24/2019 12:00:00 AM EDT Current Smoker completed Curre nt Smoker eCW1 ([facility] [facility]) Smoking 12/24/2019 12:00:00 AM EDT Current Smoker completed Curre nt Smoker eCW1 ([facility]) Smoking 12/24/2019 12:00:00 AM EDT Current Smoker completed Curre nt Smoker eCW1 ([facility]) Smoking 12/24/2019 12:00:00 AM EDT Current Smoker completed Curre nt Smoker eCW1 ([facility]) Smoking 12/24/2019 12:00:00 AM EDT Current Smoker completed Curre nt Smoker eCW1 ([facility]) Smoking 10/31/2019 12:00:00 AM EDT Current Smoker completed Curre nt Smoker eCW1 ([facility]) Smoking 10/31/2019 12:00:00 AM EDT Current Smoker completed Curre nt Smoker eCW1 ([facility]) Smoking 10/31/2019 12:00:00 AM EDT Current Smoker completed Curre nt Smoker eCW1 ([facility]) Vital Signs ID Date Data Source UNK Name Value Range Interpretation Code Description Data Source(s) Oxygen saturation in Arterial blood by Pulse oximetry 98 % 98 % eCW1 ([facility]) Respiratory rate 18 /min 18 /min eCW1 ([facility]) Heart rate 119 /min 119 /min eCW1 ([facility]) Body mass index (BMI) [Ratio] 35.74 kg/m2 35.74 kg/m2 eCW1 ([facility]) Body weight 183.0 [lb_av] 183.0 [lb_av] eCW1 ([facility]) Body height 60.0 [in_i] 60.0 [in_i] eCW1 ([facility]) Oxygen saturation in Arterial blood by Pulse oximetry 99 % 99 % eCW1 ([facility]) Respiratory rate 18 /min 18 /min eCW1 ([facility]) Heart rate 93 /min 93 /min eCW1 ([facility]) Body mass index (BMI) [Ratio] 35.27 kg/m2 35.27 kg/m2 eCW1 ([facility]) Body weight 180.6 [lb_av] 180.6 [lb_av] eCW1 ([facility]) Body height 60 [in_i] 60 [in_i] eCW1 ([facility]) Oxygen saturation in Arterial blood by Pulse oximetry 97 % 97 % eCW1 ([facility]) Respiratory rate 18 /min 18 /min eCW1 ([facility]) Heart rate 89 /min 89 /min eCW1 ([facility]) Body mass index (BMI) [Ratio] 36.48 kg/m2 36.48 kg/m2 eCW1 ([facility]) Body weight 186.8 [lb_av] 186.8 [lb_av] eCW1 ([facility]) Body height 60 [in_i] 60 [in_i] eCW1 ([facility]) Body height 60 [in_i] 60 [in_i] eCW1 ([facility]) Oxygen saturation in Arterial blood by Pulse oximetry 98 % 98 % eCW1 ([facility]) Respiratory rate 18 /min 18 /min eCW1 ([facility]) Heart rate 86 /min 86 /min eCW1 ([facility]) Body temperature 98.0 [degF] 98.0 [degF] eCW1 ( [facility]) Body mass index (BMI) [Ratio] 32.10 kg/m2 32.10 kg/m2 eCW1 ([facility]) Body weight 164.4 [lb_av] 164.4 [lb_av] eCW1 ([facility]) Oxygen saturation in Arterial blood by Pulse oximetry 99 % 99 % eCW1 ([facility]) Respiratory rate 18 /min 18 /min eCW1 ([facility]) Heart rate 100 /min 100 /min eCW1 ([facility]) Body temperature 98.7 [degF] 98.7 [degF] eCW1 ( [facility]) Body mass index (BMI) [Ratio] 30.70 kg/m2 30.70 kg/m2 eCW1 ([facility]) Body weight 157.2 [lb_av] 157.2 [lb_av] eCW1 ([facility]) Body height 60 [in_i] 60 [in_i] eCW1 ([facility]) ID Date Data Source [id number] 12/26/2019 01:56:00 PM EDT [facility] Name Value Range Interpretation Code Description Data Source(s) WEIGHT 72.3 kilos 72.3 kilos [facility] HEIGHT 152.4 centimeters 152.4 centimeters [facility] WEIGHT 75 kilos 75 kilos [facility] HEIGHT 152.4 centimeters 152.4 centimeters [facility] ID Date Data Source [id number] 12/10/2019 06:07:00 AM EDT [facility] Name Value Range Interpretation Code Description Data Source(s) WEIGHT 68 kilos 68 kilos [facility] HEIGHT 152.4 centimeters 152.4 centimeters [facility] WEIGHT 68.4 kilos 68.4 kilos [facility] HEIGHT 152.4 centimeters 152.4 centimeters [facility] ID Date Data Source [id number] 12/08/2019 01:43:00 PM EDT [facility] Name Value Range Interpretation Code Description Data Source(s) WEIGHT 75 kilos [facility]ilos [facility] HEIGHT 152.4 centimeters 152.4 centimeters [facility] ID Date Data Source [id number] 12/08/2019 01:43:00 PM EDT [facility] Name Value Range Interpretation Code Description Data Source(s) [facility].02 [facility] 160.02 centimeter s [facility] Patient Treatment Plan of Care Planned Activity Planned Date Details Description Data Source (s) Doxepin Hydrochloride 25 MG Oral Capsule 03/09/2020 12:00:00 AM EST eCW1 ([facility]) Doxepin Hydrochloride 25 MG Oral Capsule 03/09/2020 12:00:00 AM EST eCW1 ([facility]) Doxepin Hydrochloride 25 MG Oral Capsule 03/09/2020 12:00:00 AM EST eCW1 ([facility]) Clonidine Hydrochloride 0.2 MG Oral Tablet 12/24/2019 12:00:00 AM E DT eCW1 ([facility]) Clonidine Hydrochloride 0.2 MG Oral Tablet 12/24/2019 12:00:00 AM E DT eCW1 ([facility]) Clonidine Hydrochloride 0.2 MG Oral Tablet 12/24/2019 12:00:00 AM E DT eCW1 ([facility]) Clonidine Hydrochloride 0.2 MG Oral Tablet 12/24/2019 12:00:00 AM E DT eCW1 ([facility]) Clonidine Hydrochloride 0.2 MG Oral Tablet 12/24/2019 12:00:00 AM E DT eCW1 ([facility]) Clonidine Hydrochloride 0.2 MG Oral Tablet 12/24/2019 12:00:00 AM E DT eCW1 ([facility]) Clonidine Hydrochloride 0.2 MG Oral Tablet 12/24/2019 12:00:00 AM E DT eCW1 ([facility]) lisdexamfetamine dimesylate 50 MG Oral Capsule [Vyvans e] 11/04/2019 12:00:00 AM EDT eCW1 ([facility]) Clonazepam 0.5 MG Oral Tablet 11/04/2019 12:00:00 AM EDT eCW1 ([facility]) Citalopram 20 MG Oral Tablet [Celexa] 11/04/2019 12:00:00 AM EDT eCW1 ([facility]) Risperidone 3 MG Oral Tablet [Risperdal] 07/07/2019 12:00:00 AM EDT eCW1 ([facility]) Risperidone 3 MG Oral Tablet [Risperdal] 07/07/2019 12:00:00 AM EDT eCW1 ([facility]) Risperidone 2 MG Oral Tablet [Risperdal] 07/07/2019 12:00:00 AM EDT eCW1 ([facility]) Risperidone 2 MG Oral Tablet [Risperdal] 07/07/2019 12:00:00 AM EDT eCW1 ([facility]) Risperidone 3 MG Oral Tablet [Risperdal] 07/07/2019 12:00:00 AM EDT eCW1 ([facility])
[2020-04-21] MEDS ORDERED: LORazepam 2 MG TAB PO STA (02:05)
[2020-04-21] MEDS ORDERED: LORazepam 2 MG/ML VIAL IM ONE (02:30)
[2020-04-21] MEDS ORDERED: diphenhydrAMINE 50MG/ML VIAL (J1200) IM ONE (02:30)
[2020-04-21] MEDS ORDERED: HALOPERIDOL 5MG/ML VIAL (J1630 PER 1) IM ONE (02:30)
--- OUTSIDE RECORDS SUMMARY | 2020-04-21 02:46 | CCD ---
Author Author [facility] Organization [facility] Address Unknown Phone Unavailable Care Team Providers Care Pillowcase Sewer Name Role Phone Kori FLORES Unavailable Unavailable [...] Jeremie HOGAN MD Unavailable Unavailable JESICA, @ [facility] Unavailable Unavailable BEHZAD HOGAN MD Unavailable Unavailable Ching, Reginah W Kassidy GRAB OPERATOR-C Unavailable Unavailabl e Ching, Reginah W Kassidy GRAB OPERATOR-C Unavailable Unavailabl e Ching, Reginah W Kassidy GRAB OPERATOR-C Unavailable Unavailabl e Ching, Reginah W Kassidy GRAB OPERATOR-C Unavailable Unavailabl e Ching, Reginah W Kassidy GRAB OPERATOR-C Unavailable Unavailabl e Ching, Reginah W Kassidy GRAB OPERATOR-C Unavailable Unavailabl e Ching, Reginah W Kassidy GRAB OPERATOR-C Unavailable Unavailabl e Ching, Reginah W Kassidy GRAB OPERATOR-C Unavailable Unavailabl e Ching, Reginah W Kassidy GRAB OPERATOR-C Unavailable Unavailabl e Ching, Reginah W Kassidy GRAB OPERATOR-C Unavailable Unavailabl e Ching, Reginah W Kassidy GRAB OPERATOR-C Unavailable Unavailabl e Ching, Reginah W Kassidy GRAB OPERATOR-C Unavailable Unavailabl e Ching, Reginah W Kassidy GRAB OPERATOR-C Unavailable Unavailabl e Ching, Reginah W Kassidy GRAB OPERATOR-C Unavailable Unavailabl e Ching, Reginah W Kassidy GRAB OPERATOR-C Unavailable Unavailabl e Ching, Reginah W Kassidy GRAB OPERATOR-C Unavailable Unavailabl e Ching, Elijah Yi GRAB OPERATOR-C Unavailable Unavailabl e Ching, Elijah Yi GRAB OPERATOR-C Unavailable Unavailabl e Ching, Elijah Yi GRAB OPERATOR-C Unavailable Unavailabl e Ching, Elijah Yi GRAB OPERATOR-C Unavailable Unavailabl e Ching, Elijah Yi GRAB OPERATOR-C Unavailable Unavailabl e Ching, Elijah Yi GRAB OPERATOR-C Unavailable Unavailabl e Ching, Elijah Yi GRAB OPERATOR-C Unavailable Unavailabl e Ching, Elijah Yi GRAB OPERATOR-C Unavailable Unavailabl e Ching, Elijah Yi GRAB OPERATOR-C Unavailable Unavailabl e Ching, Elijah Yi GRAB OPERATOR-C Unavailable Unavailabl e Ching, Elijah Yi GRAB OPERATOR-C Unavailable Unavailabl e Ching, Elijah Yi GRAB OPERATOR-C Unavailable Unavailabl e Ching, Elijah Yi GRAB OPERATOR-C Unavailable Unavailabl e Ching, Elijah Yi GRAB OPERATOR-C Unavailable Unavailabl e Ching, Elijah Yi GRAB OPERATOR-C Unavailable Unavailabl e Ching, Elijah Yi GRAB OPERATOR-C Unavailable Unavailabl e Lino Marie MD Unavailable [...] Unavailable Unavailable FrankLino jasmine MD Unavailable Unavailable FraknLino jasmine MD Unavailable Unavailable FrankLino jasmine MD [...] BROWN, L JANE Unavailable Unavailable DESJARLAIS, KAROLYN GOLF COURSE ARCHITECT Unavailable Unavailable DESJARLAIS, KAROLYN GOLF COURSE ARCHITECT Unavailable Unavailable DESJARLAIS, KAROLYN GOLF COURSE ARCHITECT Unavailable Unavailable DESJARLAIS, KAROLYN GOLF COURSE ARCHITECT Unavailable Unavailable DESJARLAIS, KAROLYN GOLF COURSE ARCHITECT Unavailable Unavailable DESJARLAIS, KAROLYN GOLF COURSE ARCHITECT Unavailable Unavailable DESJARLAIS, KAROLYN GOLF COURSE ARCHITECT Unavailable Unavailable DESJARLAIS, KAROLYN GOLF COURSE ARCHITECT Unavailable Unavailable DESJARLAIS, KAROLYN GOLF COURSE ARCHITECT Unavailable Unavailable MAHESH RECINOS Unavailable Unavailable Lester, Mavis GRAB OPERATOR GRAB OPERATOR Unavailable Unavailable Lester, A Mavis GRAB OPERATOR Unavailable Unavailable Lester, A Mavis GRAB OPERATOR Unavailable Unavailable Lester, A Mavis GRAB OPERATOR Unavailable Unavailable Lester, A Mavis GRAB OPERATOR Unavailable Unavailable Lester, A Mavis GRAB OPERATOR Unavailable Unavailable Lester, A Mavis GRAB OPERATOR Unavailable Unavailable Lester, A Mavis GRAB OPERATOR Unavailable Unavailable Lester, A Mavis GRAB OPERATOR Unavailable Unavailable Lester, A Mavis GRAB OPERATOR Unavailable Unavailable Lester, A Mavis GRAB OPERATOR Unavailable Unavailable Lester, A Mavis GRAB OPERATOR Unavailable Unavailable Lester, A Mavis GRAB OPERATOR Unavailable Unavailable Lester, A Mavis GRAB OPERATOR Unavailable Unavailable Lester, A Mavis GRAB OPERATOR Unavailable Unavailable Lester, A Mavis GRAB OPERATOR Unavailable Unavailable Lester, A Mavis GRAB OPERATOR Unavailable Unavailable Lester, A Mavis GRAB OPERATOR Unavailable Unavailable Lester, A Mavis GRAB OPERATOR Unavailable Unavailable Lester, A Mavis GRAB OPERATOR Unavailable Unavailable Lester, A Mavis GRAB OPERATOR Unavailable Unavailable Lester, A Mavis GRAB OPERATOR Unavailable Unavailable Lester, A Mavis GRAB OPERATOR Unavailable Unavailable Lester, A Mavis GRAB OPERATOR Unavailable Unavailable Lester, A Mavis GRAB OPERATOR Unavailable Unavailable Lester, A Mavis GRAB OPERATOR Unavailable Unavailable Lester, A Mavis GRAB OPERATOR Unavailable Unavailable Lester, A Mavis GRAB OPERATOR Unavailable Unavailable Lester, A Mavis GRAB OPERATOR Unavailable Unavailable BLUM, KATRIN Unavailable Unavailable Re-disclosure [...] is protected by Article 27-F of the [facility] Public Health law. If you continue you may have access to information: Regarding HIV / AIDS; Provided by facilities licensed or operated by the [facility] Office of Mental Health; or Provided by the [facility] Office for People With Developmental Disabilities. If such information is present, then the following [facility] mandated warning applies: This information has been [...] allergy Drug allergy AMOXICLIIN SWELLING, HIVES R [facility] Drug allergy olanzapine olanzapine [facility] Drug allergy trimethoprim trimethoprim "BLISTERS IN MOUTH" [facility] Drug allergy sulfamethoxazole sulfamethoxazole "BLISTERS IN MOUTH" [facility] Drug allergy haloperidol haloperidol [facility] Drug allergy Sulfa (Sulfonamide Antibiotics) Sulfa (Sulfonami de Antibiotics) "BLISTERS IN MOUTH" [facility] Drug allergy Penicillins Penicillins SWELLING, HIVES SV R er [facility] Encounters Encounter Providers Location Date Indications Data Source(s ) Outpatient Attender: JANE EDWARD 04/20/2020 03:00:00 PM [facility] Outpatient [facility] 04/19/2020 12:00:00 AM EST eCW1 ([facility]) Outpatient [facility] 04/16/2020 12:00:00 AM EST eCW1 ([facility]) Outpatient Attender: FAHAD MOONEY 04/15/2020 09:45:0 0 AM [facility] Outpatient [facility] 04/12/2020 12:00:00 AM EST eCW1 ([facility]) Outpatient [facility] 04/08/2020 12:00:00 AM EST eCW1 ([facility]) Outpatient [facility] 04/08/2020 12:00:00 AM EST eCW1 ([facility]) Outpatient [facility] 04/08/2020 12:00:00 AM EST eCW1 ([facility]) Outpatient [facility] 04/05/2020 12:00:00 AM EST eCW1 ([facility]) Outpatient Attender: NATHAN PAUL PA-C 03/30/2020 10:30:00 AM [facility] Outpatient Attender: Shira Youngblood PA-C 03/30/2020 10:18 :00 AM [facility] Outpatient [facility] 03/30/2020 12:00:00 AM EST eCW1 ([facility]) Outpatient Attender: JANE EDWARD 03/23/2020 02:00:00 PM [facility] Outpatient Attender: JANE EDWARD 03/17/2020 10:30:00 AM E [facility] Outpatient Attender: JANE EDWARD 03/11/2020 04:00:00 PM E [facility] Attender: FAHAD MOONEY 03/11/2020 06:30:0 0 AM [facility] Outpatient Attender: KAROLYN VAN NP 03/09/2020 03: 40:00 PM [facility] Outpatient [facility] 03/03/2020 12:00:00 AM EST eCW1 ([facility]) Outpatient Attender: Shira Fernándezrer: Shira Youngblood PA-C EMERGENCY ROOM-LAB 03/01/2020 04:49:00 PM EST - 03/01/2020 04:49:00 PM [facility] Outpatient Attender: Shira Youngblood PA-C 03/01/2020 03:45 :00 PM [facility] Outpatient [facility] 03/01/2020 12:00:00 AM EST eCW1 ([facility]) Outpatient [facility] 03/01/2020 12:00:00 AM EST eCW1 ([facility]) Outpatient Attender: KAROLYN VAN GOLF COURSE ARCHITECT 02/18/2020 02: 40:00 PM [facility] Outpatient Attender: Kassidy SERRANO 02/18/2020 10:00:0 0 AM [facility] Outpatient [facility] 02/18/2020 12:00:00 AM EST eCW1 ([facility]) Outpatient [facility] 02/10/2020 12:00:00 AM EST eCW1 ([facility]) Outpatient [facility] 02/03/2020 12:00:00 AM EST eCW1 ([facility]) Outpatient [facility] 01/14/2020 12:00:00 AM EST eCW1 ([facility]) Outpatient [facility] 01/06/2020 12:00:00 AM EST eCW1 ([facility]) Outpatient Attender: JOHNATHON PATEL 01/02/2020 10:06:00 A M [facility] Outpatient [facility] 01/02/2020 12:00:00 AM EST eCW1 ([facility]) Outpatient Attender: JANE EDWARD 01/01/2020 02:30:00 PM E [facility] Outpatient Attender: KAROLYN VAN NP 12/24/2019 11: 00:00 AM EDT [facility] Outpatient Attender: Shira Youngblood PA-C 12/24/2019 08:24 :00 AM EDT [facility] Outpatient [facility] 12/24/2019 12:00:00 AM EDT eCW1 ([facility]) Outpatient Attender: JANE EDWARD 12/23/2019 01:54:00 PM E [facility] Outpatient [facility] 12/23/2019 12:00:00 AM EDT eCW1 ([facility]) Outpatient Attender: Mavis DIEGO 12/12/2019 11:3 5:[address] [facility] Outpatient Attender: JANE EDWARD 12/11/2019 03:00:00 PM E [facility] Outpatient [facility] 12/09/2019 12:00:00 AM EDT eCW1 ([facility]) Outpatient Attender: Mavis PATEL 12/05/2019 01:2 6:[address] [facility] Inpatient Attender: PRERNA RIOS MDAdmitter: PRERNA Hopson MD ER-3RD 12/05/2019 10:08:00 AM EDT - 12/10/2019 01:07:00 PM [facility] Outpatient Attender: NATHAN PAUL PA-C 12/05/2019 09:03:00 AM EDT [facility] Admission cancelled. Disregard status an d admitted date. Inpatient Attender: BEHZAD HOGAN MD Attender: BEHZAD HOGAN MDAttender: DIOGENES BUENO MDAttender: DIOGENES BUENO MDAdmitter: BEHZAD HOGAN MD ER-ICU 12/04/2019 11:06:00 PM EDT - 12/05/2019 10:03:00 AM EDT [facility] Patient discharged. Emergency Attender: GINGER Salaser: Melissa Youngblood PA-C EMERGENCY ROOM-ER 12/04/2019 04:21:00 PM EDT - 12/04/2019 08:40:00 PM EDT [facility] Patient discharged. Outpatient Attender: KAROLYN VAN NP 12/04/2019 03: 11:00 PM EDT [facility] Outpatient Attender: Mavis DIEGO FP 11/29/2019 07:0 4:[address] [facility] Outpatient Attender: JOHNATHON DIEGO FP 11/29/2019 07:04:[address] [facility] Outpatient Attender: Mavis DIEGO FP 11/24/2019 12:2 9:[address] [facility] Emergency Attender: EVONNE Garzasultant: STAFF NON 11/07/2019 12:19:00 AM EDT - 11/07/2019 04:20:00 AM EDT [facility] Patient discharged. Outpatient [facility] 11/07/2019 12:00:00 AM EDT eCW1 ([facility]) Outpatient Attender: Mavis DIEGO FP 11/04/2019 02:2 6:[address] [facility] Outpatient Attender: KAROLYN VAN NP 11/04/2019 11: 40:00 AM EDT [facility] Outpatient Attender: Mavis DIEGO FP 11/02/2019 01:2 6:[address] [facility] Outpatient Attender: Mavis DIEGO FP 10/31/2019 06:0 2:[address] [facility] Outpatient Attender: JOHNATHON DIEGO FP 10/31/2019 06:01:[address] [facility] Outpatient Attender: Mavis DIEGO FP 10/31/2019 06:0 1:[address] [facility] Outpatient Attender: JOHNATHON DIEGO FP 10/31/2019 06:01:[address] [facility] Outpatient Attender: Shira Youngblood PA-C 10/31/2019 09:06 :00 AM EDT [facility] Outpatient [facility] 10/31/2019 12:00:00 AM EDT eC1 ([facility]) Outpatient Attender: JANE EDWARD 10/27/2019 11:00:00 AM E [facility] Outpatient Attender: KAROLYN VAN NP 10/21/2019 03: 20:00 PM EDT [facility] Emergency Attender: EVONNE HINTONNANCIConsultant: STAFF NON 10/09/2019 02:09:00 AM EDT - 10/09/2019 03:44:00 AM EDT [facility] Patient discharged. Outpatient Attender: KATRIN BLUM 10/06/2019 09:37:00 AM ED [facility] Outpatient Attender: Mavis DIEGO FP 09/25/2019 04:0 9:[address] [facility] Outpatient Attender: Mavis DIEGO FP 09/25/2019 04:0 7:59 PM EDT [facility] Outpatient Attender: JOHNATHON DIEOG FP 09/23/2019 10:31:00 A M EDT [facility] Outpatient Attender: JOHNATHON DIEGO FP 09/23/2019 10:30:[address] [facility] Outpatient Attender: JOHNATHON DIEGO FP 09/23/2019 12:02:09 A M EDT [facility] Outpatient Attender: JOHNATHON DIEGO FP 09/22/2019 05:44:02 P M EDT [facility] Outpatient Attender: Mavis DIEGO FP 09/22/2019 05:4 2:59 PM EDT [facility] Outpatient Attender: JOHNATHON DIEGO FP 09/22/2019 02:38:[address] [facility] Outpatient Attender: Mavis DIEGO FP 09/22/2019 12:0 5:[address] [facility] Outpatient Attender: JOHNATHON DIEGO FP 09/22/2019 07:56:01 A M EDT [facility] Outpatient Attender: Mavis DIEGO FP 09/16/2019 05:0 8:02 AM EDT [facility] Outpatient Attender: Mavis DIEGO FP 09/14/2019 05:1 9:00 PM EDT [facility] Outpatient Attender: JOHNATHON DIEGO FP 09/14/2019 05:19:00 P M EDT [facility] Outpatient Attender: Mavis DIEGO FP 09/12/2019 11:5 3:00 AM EDT [facility] Outpatient Attender: Mavis DIEGO FP 09/10/2019 11:0 6:01 PM EDT [facility] Outpatient Attender: JOHNATHON DIEGO FP 09/10/2019 11:06:[address] [facility] Outpatient Referrer: Femi Marie MD 08/15/2019 05:44:00 A M EDT [facility] Outpatient Attender: Mavis DIEGO FP 08/06/2019 09:5 2:[address] [facility] Outpatient Attender: JOHNATHON DIEGO FP 08/05/2019 07:41:[address] [facility] Outpatient Attender: Mavis DIEGO FP 08/05/2019 09:2 3:[address] [facility] Outpatient Attender: JOHNATHON DIEGO FP 08/05/2019 09:23:[address] [facility] Outpatient Attender: KATRIN BLUM 08/04/2019 09:42:00 AM ED [facility] Outpatient Attender: Mavis DIEGO FP 08/01/2019 10:3 1:[address] [facility] Outpatient Attender: Mavis DIEGO FP 08/01/2019 10:2 7:[address] [facility] Outpatient Attender: JOHNATHON DIEGO FP 07/30/2019 11:31:[address] [facility] Outpatient Attender: KATRIN BLUM 07/07/2019 03:30:00 PM ED [facility] Outpatient Attender: Mavis DIEGO FP 07/04/2019 10:3 3:[address] [facility] Outpatient Attender: Mavis DIEGO FP 07/03/2019 01:5 2:[address] [facility] Outpatient Attender: Mavis DIEGO FP 07/02/2019 10:2 8:[address] [facility] Outpatient Attender: Mavis DIEGO FP 07/01/2019 09:5 7:[address] [facility] Outpatient Attender: JOHNATHON DIEGO FP 07/01/2019 08:57:[address] [facility] Outpatient Referrer: Femi Marie MD 07/01/2019 04:55:00 A M EDT [facility] Outpatient Attender: JOHNATHON DIEGO FP 06/30/2019 04:21:[address] [facility] Outpatient Attender: Mavis TRUJILLOP FP 06/22/2019 06:0 1:[address] [facility] Outpatient Attender: Mavis Batista JOHNATHON FP 06/17/2019 03:3 2:[address] [facility] Outpatient Attender: JOHNATHON Batista JOHNATHON FP 05/27/2019 12:22:[address] [facility] Outpatient Attender: Mavis Batista JOHNATHON FP 05/24/2019 11:3 7:[address] [facility] Outpatient Attender: JOHNATHON Batista JOHNATHON FP 05/20/2019 12:36:[address] [facility] Outpatient Attender: JOHNATHON Batista JOHNATHON FP 05/20/2019 11:56:[address] [facility] Outpatient Attender: JOHNATHON Batista JOHNATHON PATEL 05/20/2019 11:42:[address] [facility] Outpatient Attender: JOHNATHON Batista JOHNATHON FP 05/01/2019 03:31:00 P M [facility] Outpatient Attender: Mavisgrant Batista JOHNATHON PATEL 04/28/2019 10:4 4:01 AM [facility] Outpatient Attender: KATRIN BLUM 04/21/2019 10:29:00 AM [facility] Outpatient Attender: JOHNATHON PATEL 04/15/2019 12:44:01 P M [facility] Outpatient Attender: AMHESH RECINOS 02/24/2019 01:46:00 PM [facility] Outpatient Attender: JANE EDWARD 02/21/2019 10:00:00 AM [facility] Outpatient Attender: MAHESH RECINOS 02/10/2019 02:18:00 PM [facility] Inpatient Attender: CHAO MARI RICHMONDttdoug harjinder: PRERNA RIOS MDAdmitter: PRERNA RIOS MD ER-3RD 12/23/2018 04:01:00 PM EDT - 12/26/2018 01:22:00 PM EDT [facility] Patient discharged. Inpatient Attender: ONDINA RAMIREZ MDAdmitter: ONDINA RAMIREZ MD E R-ICU 12/19/2018 05:26:00 PM EDT - 12/23/2018 03:42:00 PM EDT [facility] Patient [facility] Emergency Attender: MATIAS MIKE EMERGENCY ROOM-ER 03:51:00 PM EDT - 12/19/2018 04:47:00 PM EDT [facility] Patient discharged. Medications Medication Brand [...] HCl 25 MG eCW1 ([facility]) Doxepin Hydrochloride 25 MG Oral Capsule Doxepin HCl 25 MG D oxepin HCl 25 MG 03/09/2020 12:00:00 AM EST 1.0 {capsule_at_bedtime} active Doxepin HCl 25 MG eCW1 ([facility]) Doxepin Hydrochloride 25 MG Oral Capsule Doxepin HCl 25 MG D oxepin HCl 25 MG 03/09/2020 12:00:00 AM EST 1.0 {capsule_at_bedtime} active Doxepin HCl 25 MG eCW1 ([facility]) Doxepin Hydrochloride 25 MG Oral Capsule Doxepin HCl 25 MG D oxepin HCl 25 MG 03/09/2020 12:00:00 AM EST 1.0 {capsule_at_bedtime} active Doxepin HCl 25 MG eCW1 ([facility]) Doxepin Hydrochloride 25 MG Oral Capsule Doxepin HCl 25 MG D oxepin HCl 25 MG 03/09/2020 12:00:00 AM EST 1.0 {capsule_at_bedtime} active Doxepin HCl 25 MG eCW1 ([facility]) Doxepin Hydrochloride 25 MG Oral Capsule Doxepin HCl 25 MG D oxepin HCl 25 MG 03/09/2020 12:00:00 AM EST 1.0 {capsule_at_bedtime} active Doxepin HCl 25 MG eCW1 ([facility]) Doxepin Hydrochloride 25 MG Oral Capsule Doxepin HCl 25 MG D oxepin HCl 25 MG 03/09/2020 12:00:00 AM EST 1.0 {capsule_at_bedtime} active Doxepin HCl 25 MG eCW1 ([facility]) Doxepin Hydrochloride 25 MG Oral Capsule Doxepin HCl 25 MG D oxepin HCl 25 MG 03/09/2020 12:00:00 AM EST 1.0 {capsule_at_bedtime} active Doxepin HCl 25 MG eCW1 ([facility]) 8-2 mg 03/03/2020 12:00:00 AM [...] HCl 0.2 MG eCW1 ([facility]) Clonidine Hydrochloride 0.2 MG Oral Tablet Clonidine H Cl 0.2 MG Clonidine HCl 0.2 MG 12/24/2019 12:00:00 AM EDT 1.0 {tablet} activ e Clonidine HCl 0.2 MG eCW1 ([facility]) Clonidine Hydrochloride 0.2 MG Oral Tablet Clonidine H Cl 0.2 MG Clonidine HCl 0.2 MG 12/24/2019 12:00:00 AM EDT 1.0 {tablet} activ e Clonidine HCl 0.2 MG eCW1 ([facility]) Clonidine Hydrochloride 0.2 MG Oral Tablet Clonidine H Cl 0.2 MG Clonidine HCl 0.2 MG 12/24/2019 12:00:00 AM EDT 1.0 {tablet} activ e Clonidine HCl 0.2 MG eCW1 ([facility]) Clonidine Hydrochloride 0.2 MG Oral Tablet Clonidine H Cl 0.2 MG Clonidine HCl 0.2 MG 12/24/2019 12:00:00 AM EDT 1.0 {tablet} activ e Clonidine HCl 0.2 MG eCW1 ([facility]) Clonidine Hydrochloride 0.2 MG Oral Tablet Clonidine H Cl 0.2 MG Clonidine HCl 0.2 MG 12/24/2019 12:00:00 AM EDT 1.0 {tablet} activ e Clonidine HCl 0.2 MG eCW1 ([facility]) Clonidine Hydrochloride 0.2 MG Oral Tablet Clonidine H Cl 0.2 MG Clonidine HCl 0.2 MG 12/24/2019 12:00:00 AM EDT 1.0 {tablet} activ e Clonidine HCl 0.2 MG eCW1 ([facility]) Clonidine Hydrochloride 0.2 MG Oral Tablet Clonidine H Cl 0.2 MG Clonidine HCl 0.2 MG 12/24/2019 12:00:00 AM EDT 1.0 {tablet} suspe nded Clonidine HCl 0.2 MG eCW1 ([facility]) Clonidine Hydrochloride 0.2 MG Oral Tablet Clonidine H Cl 0.2 MG Clonidine HCl 0.2 MG 12/24/2019 12:00:00 AM EDT 1.0 {tablet} activ e Clonidine HCl 0.2 MG eCW1 ([facility]) Clonidine Hydrochloride 0.2 MG Oral Tablet Clonidine H Cl 0.2 MG Clonidine HCl 0.2 MG 12/24/2019 12:00:00 AM EDT 1.0 {tablet} activ e Clonidine HCl 0.2 MG eCW1 ([facility]) Clonidine Hydrochloride 0.2 MG Oral Tablet Clonidine H Cl 0.2 MG Clonidine HCl 0.2 MG 12/24/2019 12:00:00 AM EDT 1.0 {tablet} activ e Clonidine HCl 0.2 MG eCW1 ([facility]) Clonidine Hydrochloride 0.2 MG Oral Tablet Clonidine H Cl 0.2 MG Clonidine HCl 0.2 MG 12/24/2019 12:00:00 AM EDT 1.0 {tablet} activ e Clonidine HCl 0.2 MG eCW1 ([facility]) Clonidine Hydrochloride 0.2 MG Oral Tablet Clonidine H Cl 0.2 MG Clonidine HCl 0.2 MG 12/24/2019 12:00:00 AM EDT 1.0 {tablet} activ e Clonidine HCl 0.2 MG eCW1 ([facility]) Clonidine Hydrochloride 0.2 MG Oral Tablet Clonidine H Cl 0.2 MG Clonidine HCl 0.2 MG 12/24/2019 12:00:00 AM EDT 1.0 {tablet} suspe nded Clonidine HCl 0.2 MG eCW1 ([facility]) Clonidine Hydrochloride 0.2 MG Oral Tablet Clonidine H Cl 0.2 MG Clonidine HCl 0.2 MG 12/24/2019 12:00:00 AM EDT 1.0 {tablet} activ e Clonidine HCl 0.2 MG eCW1 ([facility]) Clonidine Hydrochloride 0.2 MG Oral Tablet Clonidine H Cl 0.2 MG Clonidine HCl 0.2 MG 12/24/2019 12:00:00 AM EDT 1.0 {tablet} activ e Clonidine HCl 0.2 MG eCW1 ([facility]) Clonidine Hydrochloride 0.2 MG Oral Tablet Clonidine H Cl 0.2 MG Clonidine HCl 0.2 MG 12/24/2019 12:00:00 AM EDT 1.0 {tablet} suspe nded Clonidine HCl 0.2 MG eCW1 ([facility]) Clonidine Hydrochloride 0.2 MG Oral Tablet Clonidine H Cl 0.2 MG Clonidine HCl 0.2 MG 12/24/2019 12:00:00 AM EDT 1.0 {tablet} activ e Clonidine HCl 0.2 MG eCW1 ([facility]) Clonidine Hydrochloride 0.2 MG Oral Tablet Clonidine H Cl 0.2 MG Clonidine HCl 0.2 MG 12/24/2019 12:00:00 AM EDT 1.0 {tablet} activ e Clonidine HCl 0.2 MG eCW1 ([facility]) 300 mg 12/13/2019 12:00:00 [...] relationship to dick Policy Dick Plan Information [facility] [id number] SP [id number] [facility] [id number] S [id number] [facility] MEDICAID [id number] S [id number] [facility](MCAID) O [id number] S [id number] [facility] MEDICAID [id number] S [id number] [facility] MEDICAID [id number] S [id number] Managed Care [facility] Community Plan P [id number] S [id number] Medicaid S [id number] S [id number] [facility] [id number] SP [id number] [facility] [id number] S [id number] [facility] [id number] SP [id number] [facility] PLAN XIX [phone] MEDICAID [id number] SP [id number] Managed Care [facility] Plan P [id number] S [id number] MEDICAID [id number] S [id number] MEDICAID [id number] S [id number] MEDICAID PROF FEES [id number] S [id number] MEDICAID [id number] S [id number] [facility] [id number] S [id number] Medicaid S [id number] S [id number] Managed Care - Community Plan [facility] P [id number] S [id number] [place] [place]EL ATTENDANT DEPT [id number] SP [id number] Medicaid P [id number] S [id number] SELF PAY ONLY [id number] SP [id number] [facility] COMMUNITY PLAN [facility] [id number] SP [id number] [facility] [place] ATTENDANT DEPT [id number] SP [id number] SELF PAY UNAVAILABLE SP UNAVAILA BLE Self Pay P UNAVAILABLE S UNAVAILA BLE Medicaid P [id number] S [id number] [facility] S UNAVAILA BLE Managed Care - Community Plan [facility] P [id number] S [id number] Medicaid S UNAVAILABLE S UNAVAILA BLE Problems, Conditions, and Diagnoses Code Display Name Description Problem Type Effective Dates Data Source(s) F19.10 Polysubstance abuse Polysubstance abuse Problem 0 03/11/2020 12:00:00 AM EST eCW1 ([facility]) F19.11 [id number] History of drug abuse Problem 03/01/2020 12: 00:00 AM EST eCW1 ([facility]) K14.6 [id number] Tongue sore Problem 03/01/2020 12:00:[address] eCW1 ([facility]) F19.10 [id number] Substance abuse Problem 12/24/2019 12:00:00 AM EDT eCW1 ([facility]) F50.81 [id number] Binge eating disorder Problem 11/04/2019 12: 00:00 AM EDT eCW1 ([facility]) G56.03 [id number] Carpal tunnel syndrome, bilateral Pr oblem 10/31/2019 12:00:00 AM EDT eCW1 ([facility]) R13.12 [id number] Oropharyngeal dysphagia Problem 10/31/2019 1 2:00:00 AM EDT eCW1 ([facility]) F17.200 [id number] Tobacco dependence Problem 10/31/2019 12:00: 00 AM EDT eCW1 ([facility]) E66.9 [id number] Obesity (BMI 30.0-34.9) Problem 0 10/31/2019 12:00:00 AM EDT eCW1 ([facility] jimena) Z68.30 066071752 BMI 30.0-30.9,adult Problem 10/31/2019 12:00 :00 AM EDT eCW1 ([facility]) K21.9 [id number] Gastroesophageal ref lux disease, esophagitis presence not specified Problem 10/31/2019 12:00:00 AM EDT [facility]CW1 [facility] K92.0 Hematemesis Hematemesis - cause unknown 020 05:42:[address] [facility] I80.9 Phlebitis and thrombophlebitis of unspec ified site Phlebitis and thrombophlebitis of unspecified site 05/20/2019 12:34:[address] [facility] right AC and right tibia F15.10 Other stimulant abuse, uncomplicated OTH ER STIMULANT ABUSE, UNCOMPLICATED Diagnosis 03/30/2020 10:30:00 AM [facility] l F19.10 Other psychoactive substance abuse, unco mplicated OTHER PSYCHOACTIVE SUBSTANCE ABUSE, UNCOMPLICATED Diagnosis 03/30/2020 10:30:00 AM [facility] F43.12 Post-traumatic stress disorder, chronic POST-TRAUMATIC STRESS DISORDER, CHRONIC Diagnosis 03/30/2020 10:30:00 AM [facility] l T14.8XXA OTHER INJURY OF UNSPECIFIED BODY REGION, INITIAL E OTHER INJURY OF UNSPECIFIED BODY REGION, INITIAL E Diagnosis 03/30/2020 10:18:00 AM [facility] K13.79 Other lesions of oral mucosa OTHER LESIONS OF ORAL MUC SNIA Diagnosis 03/30/2020 10:18:00 AM [facility] F25.9 Schizoaffective disorder, unspecified SC HIZOAFFECTIVE DISORDER, UNSPECIFIED Diagnosis 03/30/2020 10:18:00 AM [facility] l A04.72 ENTEROCOLITIS D/T CLOSTRIDIUM DIFFICILE, NOT SPCF RECUR ENTEROCOLITIS D/T CLOSTRIDIUM DIFFICILE, NOT SPCF RECUR Diagnosis 10:18:00 AM [facility] F11.21 Opioid dependence, in remission OPIOID DEPENDENC E, IN REMISSION Diagnosis 03/23/2020 02:00:00 PM [facility] F50.81 BINGE EATING DISORDER BINGE EATING DISORDER Diagnosis 03/23/2020 02:00:00 PM [facility] F90.0 Attention-deficit hyperactivity disorder , predominantly inattentive type ATTN-DEFCT HYPERACTIVITY DISORDER, PREDOM INATTENT Diagnosis 01/2021 03:40:00 PM [facility] Z13.29 Encounter for screening for other suspec keven endocrine disorder ENCOUNTER FOR SCREENING FOR OTH SUSPECTE Diagnosis 03/01/2020 04:49:00 PM [facility] Z82.61 Family history of arthritis FAMILY HISTORY OF ARTHRITI S Diagnosis 03/01/2020 03:45:00 PM [facility] Z13.220 Encounter for screening for lipoid disor ders ENCOUNTER FOR SCREENING FOR LIPOID DISORDERS Diagnosis 03/01/2020 03:45:00 PM [facility] Z82.69 Family history of other dise ases of the musculoskeletal system and connective tissue FAMILY HISTORY OF DISEASES OF THE MS SYS AND CONNE Diagnosis 03/01/2020 03:45:00 PM [facility] R50.9 Fever, unspecified FEVER, UNSPECIFIED Diagnosis 05/2020 03:45:00 PM [facility] 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, in r emission OTHER PSYCHOACTIVE SUBSTANCE ABUSE, IN REMISSION Diagnosis 03/01/2020 03:45:00 PM [facility] G56.03 CARPAL TUNNEL SYNDROME, BILATERAL UPPER LIMBS CARPAL TUNNEL SYNDROME, BILATERAL UPPER LIMBS Diagnosis 03/01/2020 03:45:[facility] K21.9 Gastro-esophageal reflux disease without esophagitis GASTRO-ESOPHAGEAL REFLUX DISEASE WITHOUT ESOPHAGITIS Diagnosis 02/18/2020 10:00:00 AM [facility] F12.10 Cannabis abuse, uncomplicated CANNABIS ABUSE, UNCOMPLI CATED Diagnosis 12/24/2019 11:00:00 AM [facility] F11.10 Opioid abuse, uncomplicated OPIOID ABUSE, UNCOMPLICATE D Diagnosis 12/24/2019 11:00:00 AM [facility] R13.12 Dysphagia, oropharyngeal phase DYSPHAGIA, OROPHARYNGEA L PHASE Diagnosis 12/24/2019 08:24:00 AM [facility] M54.2 Cervicalgia CERVICALGIA Diagnosis 12/24/2019 08:24:00 AM [facility] T50.914D POISONING BY MULTIPLE UNSP DRUG/MEDS/BIO L SUBST, U POISONING BY MULTIPLE UNSP DRUG/MEDS/BIOL SUBST, U Diagnosis 12/24/2019 08:24:00 AM [facility] F19.20 Other psychoactive substance dependence, uncomplicated [...] DISORDER, DEPRESSIVE TYPE Diagnosis 12/05/2019 10:08:00 AM [facility] james Y92.[address] or not [...] SED-HYPNTC DRUGS, SLF- Diagnosis 12/04/2019 11:06:00 PM [facility] james T40.902A Poisoning by unspecified psy [...] STRESS DISORDER, UNSPECIFIED Diagnosis 12/04/2019 11:06:00 PM [facility] F43.23 Adjustment disorder with mixed anxiety a nd depressed mood ADJUSTMENT DISORDER WITH MIXED ANXIETY AND DEPRESS Diagnosis 12/04/2019 11:06:00 PM [facility] T42.4X2A Poisoning by benzodiazepines, intentiona l self-harm, initial encounter POISONING BY BENZODIAZEPINES, INTENTIONAL SELF-HARM, INIT Diagnosis 12/04/2019 11:06:00 PM [facility] Y93.89 Activity, other specified ACTIVITY, OTHER SPECIFIED Di agnosis 12/04/2019 04:21:00 PM [facility] Y92.[address] the place of o ccurrence of the external cause OT PLACES THE PLACE OF OCCURRENCE OF THE EXTER Diagnosis 09/2019 04:21:00 PM [facility] Z79.899 Other assisted (current) drug therapy O THER HALF-WAY (CURRENT) DRUG THERAPY Diagnosis 12/04/2019 04:21:00 PM [facility] Z20.828 Contact with and (suspected) exposure to other viral communicable diseases CONTACT W AND EXPOSURE TO OT VIRAL COMMUNICABLE D Diagnosis 12/04/2019 04:21:00 PM [facility] F17.210 Nicotine dependence, cigarettes, uncompl icated NICOTINE DEPENDENCE, CIGARETTES, UNCOMPLICATED Diagnosis 12/04/2019 04:21:00 PM [facility] T50.992A Poisoning by other drugs, me dicaments and biological substances, intentional self-harm, initial encounter POISONING BY OT DRUG/MEDS/BIOL SUBST, SELF-HARM, Diagnosis 12/04/2019 04:21:00 PM [facility] R45.851 Suicidal ideations SUICIDAL IDEATIONS Diagnosis 09/2019 04:21:00 PM [facility] H24340 Nicotine dependence, cigarettes, uncompl icated Nicotine dependence, cigarettes, uncomplicated Diagnosis 11/07/2019 12:19:00 AM [facility] F1510 Other stimulant abuse, uncomplicated Other stimu lant abuse, uncomplicated Diagnosis 11/07/2019 12:19:00 AM [facility] Q38626 Other psychoactive substance abuse with psychoactive substance-induced anxiety disorder Other psychoactive substance abuse with psychoactive substance- induced anxiety disorder Diagnosis 11/07/2019 12:19:00 AM [facility] R110 Nausea Nausea Diagnosis 11/07/2019 12:19:00 AM ED [facility] Z76.89 Persons encountering health services in other specified circumstances PERSONS ENCOUNTERING HEALTH SERVICES IN OT CIRCUM Diagnosis 05/2019 09:06:00 AM [facility] Z71.9 Counseling, unspecified COUNSELING, UNSPECIFIED Diagno sis 10/31/2019 09:06:00 AM [facility] Z68.30 Body mass index (BMI) 30.0-30.9, adult B BOB MASS INDEX (BMI) 30.0-30.9, ADULT Diagnosis 10/31/2019 09:06:00 AM [facility] E66.9 Obesity, unspecified OBESITY, UNSPECIFIED Diagnosis 10/31/2019 09:06:00 AM [facility] R56.9 Unspecified convulsions UNSPECIFIED CONVULSIONS Diagno sis 10/31/2019 09:06:00 AM [facility] F909 Attention-deficit hyperactivity disorder , unspecified type Attention- deficit hyperactivity disorder, unspecified type Diagnosis 10/08 02:09:00 AM [facility] J029 Acute pharyngitis, unspecified Acute pharyngitis, unsp ecified Diagnosis 10/09/2019 02:09:00 AM [facility] F15.11 OTHER STIMULANT ABUSE, IN REMISSION OTHER STIMUL ANT ABUSE, IN REMISSION Diagnosis 02/24/2019 01:46:00 PM [facility] Z72.0 Tobacco use TOBACCO USE Diagnosis 02/21/2019 10:00:00 AM [facility] Surgeries/Procedures Procedure Description Date Indications Data Source(s) Psychological Tests, Neurobehavioral and Cognitive Status 12/06/2019 12:00:00 AM [facility] Introduction of Electrolytic and Water B alance Substance into Peripheral Vein, Percutaneous Approach 12/04/2019 12:00:00 AM [facility] Results ID Date Data Source [id number] 04/10/2020 02:50:00 PM EST [facility] Name Value Range Interpretation Code Description Data [place] rce(s) Supporting Document(s) SARS coronavirus 2 RNA [Presence] in Res piratory specimen by MARK with probe detection POSITIVE [facility] This lab was ordered by [facility] a nd reported by [facility]. ID Date Data Source [id number] 04/09/2020 02:48:00 AM EST [facility] Name Value Range Interpretation Code Description Data [place] rce(s) Supporting Document(s) SARS COVID ANTIGEN POSITIVE [facility] This lab was ordered by [facility] a nd reported by [facility]. ID Date Data Source [id number] 04/09/2020 02:46:00 AM EST [facility] Name Value Range Interpretation Code Description Data [place] rce(s) Supporting Document(s) SARS COVID ANTIGEN POSITIVE [facility] This lab was ordered by [facility] a nd reported by [facility]. ID Date Data Source [id number] 03/04/2020 12:09:00 PM [facility] Name Value Range Interpretation Code Description Data [place] rce(s) Supporting Document(s) FAZAL DIRECT Negative Negative [facility] Performed at: RN - [facility] [address] [id number] Director: Elsa Garcia MD, Phone: [phone] ID Date Data Source [id number] 03/04/2020 12:05:00 PM EST [facility] Name Value Range Interpretation Code Description Data [place] rce(s) Supporting Document(s) FAZAL Direct Negative Negative [facility] ID Date Data Source [id number] 03/03/2020 08:50:00 AM EST [facility] ON TEST Name Value Range Interpretation Code Description Data [place] rce(s) Supporting Document(s) RHEUMATOID FACTOR SCREEN NEGATIVE NEGATIVE [facility] ID Date Data Source [id number] 03/03/2020 08:37:00 AM EST [facility] ADD ON TEST Name Value Range Interpretation Code Description Data [place] rce(s) Supporting Document(s) FREE T4 1.0 ng/dL 0.76-1.46 [facility] ID Date Data Source [id number] 03/03/2020 08:37:00 AM EST [facility] ADD ON TEST Name Value Range Interpretation Code Description Data [place] rce(s) Supporting Document(s) TSH 0.422 uIU/mL 0.36-3.74 [facility] ID Date Data Source [id number] 03/03/2020 08:11:00 AM EST [facility] ADD ON TEST Name Value Range Interpretation Code Description Data [place] rce(s) Supporting Document(s) C REACTIVE PROTEIN 15.6 mg/L 0.0-3.0 [facility]ames ID Date Data Source [id number] 03/03/2020 08:11:00 AM EST [facility] ADD ON TEST Name Value Range Interpretation Code Description Data [place] rce(s) Supporting Document(s) GLUCOSE 85 mg/dL 74-106 [facility] BLOOD UREA NITROGEN 11 mg/dL 7-18 [facility] ital CREATININE 0.88 mg/dL 0.6-1.0 [facility] SODIUM 135 mmol/L 136-145 L [facility] POTASSIUM 4.1 mmol/L 3.5-5.1 [facility] CHLORIDE 99 mmol/L 98-107 [facility] CO2 26 mmol/L 21-32 [facility] CALCIUM 8.8 mg/dL 8.5-10.1 [facility] ANION GAP 10.0 mmol/L 5-12 [facility] GLOMERULAR FILTRATION RATE 74 mL/min [facility] GFR IS CALCULATED IN mL/min/1.73m2 LISANDRA L FUNCTION: >90MILDLY DECREASED: 60-89MILDY TO MODERATELY DECREASED: 45-59 MODERATELY TO SEVERELY DECREASED: 30-44SEVERELY DECREASED: 15-29RENAL FAILURE: <15 AST 32 U/L 15-37 [facility] ALT 32 U/L 12-78 [facility] ALKALINE PHOSPHATASE 65 U/L 46-116 [facility] pital TOTAL BILIRUBIN 0.2 mg/dL 0.2-1.0 [facility] TOTAL PROTEIN 6.9 g/dl 6.4-8.2 [facility] ALBUMIN 3.9 gm/dL 3.4-5.0 [facility] ID Date Data Source [id number] 03/01/2020 05:46:00 PM [facility] Name Value Range Interpretation Code Description Data [place] rce(s) Supporting Document(s) CHOLESTEROL 193 mg/dL 0-200 [facility] TRIGLYCERIDES 86 mg/dL 0-150 [facility] LDL CHOLESTEROL 111 mg/dL 0-100 H [facility] HDL CHOLESTEROL 65 mg/dL 40-60 H [facility] CHOL/HDL RATIO 3.0 0.0-5.0 [facility] ID Date Data Source [id number] 02/29/2020 10:40:00 AM EST [facility] Name Value Range Interpretation Code Description Data [place] rce(s) Supporting Document(s) SARS coronavirus 2 RNA [facility] This lab was ordered by [facility] and reported by [facility]. ID Date Data Source [id number] 12/10/2019 11:15:00 AM EDT [facility] [address] [address]GQULLIL NAME: BRUNA LEE#: [id number] PHYSICIAN: PRERNA RIOS MD ADM. DATE: 12/05/19ACCOUNT #: [id number] DISCH. DATE:DISCHARGE SUMMARYIDENTIFICATION: A 34-year-old female with schizoaffective disorder,polysubstance dependence.CHIEF COMPLAINT: "I don't know why I am here."REASON FOR ADMISSION: Post- overdose.HISTORY OF PRESENT ILLNESS: The patient was interviewed in ICU after sheoverdosed. The patient was seen in [facility] for a regularconsultation, she could [...] [place] time in our service with [...] ABUSE: None.SOCIAL HISTORY: The patient is from [place], did not finish high school.She was in [...] The patient was discharged with the medications Ufjrek57 mg p.o. daily, Neurontin 600 mg p.o. [...] be enrolled in outpatient chemical dependence in [place].MENTAL STATUS EXAMINATION: The patient is pleasant, cooperative. [...] Dictated: 12/10/2019 09:34:34Date Transcribed: 12/10/2019 10:15:05JV/PUSJob #: [id number]: 12/10/19 0934 Electronically SignedTRANS:12/10/19 1115 PRERNA RIOS MDTRANS BY:IATDAFUNMI SIGNED:12/10/19REPORT COPY TO: Name Value Range Interpretation Code Description Data [place] rce(s) Supporting Document(s) ID Date Data Source [id number] 12/10/2019 06:43:00 AM EDT [facility] [address] [address]PKFULOO NAME: BRUNA LEE#: [id number] PHYSICIAN: PRERNA RIOS [facility] #: [id number] ADM. DATE: 12/05/19PATIENT : 89 DISCH. DATE: [...] follow-upappointmentDischarge InformationDISCHARGE INFORMATION* Thank you for [facility] and allowing us toserve you* Our Goal is to provide the highest quality of care.* This discharge information is to help you better understand your diagnosisand medication* Avoid taking ayux-okj-vjaryie medicines unless approved by your physician.* Take your medications as prescribed. DO NOT stop any medications unlessapproved first* Weigh yourself daily. Report any gain of 5 lbs in a week* 24 Hour Crisis HOTLINE available: Call [facility] at [phone]* Chem. Dependency: Walk in Clinics [place] ([phone]) and [place] ([phone]) anytime Sunday thru Sunday 8 to 10am. [place] ([phone]) anytimeSunday thru Sunday 8 to 10am. [facility] ([phone]) Sunday or Sunday from 8to 10am (Bring $30 to [facility] pt) SMOKIN G CESSATION* Smoking is dangerous to your health. It delays the healing process, andworks against your medications. Not smoking will improve your health* Our hospital participates with the Opt-to-Quit program. You will be contactedafter discharge by the [facility] Smoker's Quitline for support with tobaccocessation. You have the option once contacted to refuse this service.* You can also go online to www.Effective Measure.Hyperfair. Free nicotine replacementsare available Attention* You should [...] rce(s) Supporting Document(s) ID Date Data Source [id number] 12/10/2019 02:15:00 AM EDT [place], [place] [address]PATIENT NAME: BRUNA LEE#: [id number] PHYSICIAN: PRERNA RIOS MD ADM. DATE: 12/05/19PROGRESS NOTE DATE: 12/09/19 RM.#: [id number] #: [id number] NOTEIDENTIFICATION: A 34-year-old female with mood disorder [...] Dictated: 12/09/2019 10:52:52Date Transcribed: 12/10/2019 01:15:28JV/Basia #: [id number]: 12/09/19 1052 Electronically SignedTRANS:12/10/19 0215 PRERNA RIOS MDTRANS BY:IATDATE SIGNED:12/10/19REPORT COPY TO: Name Value Range Interpretation Code Description Data [place] rce(s) Supporting Document(s) ID Date Data Source [id number] 12/08/2019 11:58:00 AM EDT [facility] Name Value Range Interpretation Code Description Data [place] rce(s) Supporting Document(s) URINE COLOR [facility] UAPR [facility] UGLU Negative NEGATIVE [facility] URINE B[facility]IRUBIN [facility] UKET Negative NEGATIVE [facility] USG 1.015 1.010-1.025 [facility] UBLO Negative NEGATIVE [facility] UpH 8.0 5.0-8.0 [facility] UPRO Negative Negative [facility] UUB 0.2 mg/dL 0.2-1.0 [facility] UNIT Negative Negative [facility] ULEU Negative Negative [facility] ID Date Data Source [id number] 12/09/2019 04:57:00 AM EDT [address] [address]HYIKVTZ NAME: BRUNA LEE#: [id number] PHYSICIAN: PRERNA RIOS MD ADM. DATE: 12/05/19PROGRESS NOTE DATE: 12/08/19 .#: [id number] #: [id number] NOTEIDENTIFICATION: A 34-year-old female with mood disorder, [...] Dictated: 12/08/2019 10:30:51Date Transcribed: 12/09/2019 03:57:49JV/RAVJob #: [id number]: 12/08/19 1030 Electronically SignedTRANS:12/09/19 0457 PRERNA RIOS MDTRANS BY:IATDATE SIGNED:12/09/19REPORT COPY TO: Name Value Range Interpretation Code Description Data [place] rce(s) Supporting Document(s) ID Date Data Source [id number] 12/06/2019 11:02:00 PM EDT [address] [address]HPSJIIC NAME: BRUNA LEE#: [id number] PHYSICIAN: PRERNA RIOS MD ADM. DATE: 12/05/19ACCOUNT #: [id number] .#: [id number] ASSESSMENTIDENTIFICATION: A 34-year-old female with [...] 2 weeks ago, that she was in [place] inpatient service for 5 days forthat.The patient [...] into detail.SOCIAL HISTORY: The patient is from [place]. Did not finish high school.She is in [...] Dictated: 12/06/2019 12:22:47Date Transcribed: 12/06/2019 22:02:14JLeydi/Lilli #: [id number]: 12/06/19 1222 Electronically Signed TRANS:12/06/19 2302 PRERNA RIOS MDTRANS BY:ADE SIGNED:12/07/19REPORT COPY TO: Name Value Range Interpretation Code Description Data [place] rce(s) Supporting Document(s) ID Date Data Source [id number] 12/05/2019 02:12:00 AM EDT [facility] Name Value Range Interpretation Code Description Data [place] rce(s) Supporting Document(s) CKI 109 U/L 17-150 [facility] ID Date Data Source [id number] 12/05/2019 04:49:00 PM [facility] [place] [id number] HISTORY AND PHYSICALPATIENT NAME: BRUNA LEE MR#: [id number] PHYSICIAN: PRERNA RIOS MDAUTHOR: Diogenes Bueno MD [...] rce(s) Supporting Document(s) ID Date Data Source [id number] 12/05/2019 09:48:00 AM EDT [address] [address]FXIGZONYZ SUMMARYPATIENT NAME: BRUNA LEE MR#: [id number] PHYSICIAN: BEHZAD HOGAN MDAUTHOR: Diogenes Bueno MD DATE: 12/04/19 #: ICUDISCHARGE DATE: 12/05/19 : 87Summary of HospitalizationReason for AdmissionOverdose on xanax, gabapentin, bath saltsHospital Dxgcgs31 yo F who was admitted for an [...] official psychiatry consult was called and Dr. Gomzeequested that the pt be 2 PC'ed and [...] taking the following medications:Gabapentin* (Neurontin*) 400 MG [id number] MILLIGRAM Orally DAILYContinue taking these medications:LEVETIRACETAM (LEVETIRACETA) 1,000 MG TABLET1,000 MILLIGRAM Orally TWICE DAILYQty = 60Amitriptyline HCl (Amitriptyline HCl) 100 MG [id number] MILLIGRAM Orally DAILYSUCRALFATE (Carafate*) 1 GM TABLET1 GM Orally TWICE DAILYcloniDINE* (CLONIDINE*) 0.1 MG TABLET0.1 MILLIGRAM Orally TWICE DAILYOmeprazole Magnesium (Prilosec Otc) 20 MG TABLET.DR20 MILLIGRAM Orally DAILYrispERIdone (RISPERDAL*) 0.5 MG TABLET2 MILLIGRAM Orally TWICE DAILYATOMOXETINE HCL (Strattera) 18 MG [id number] MILLIGRAM Orally DAILYBUPRENORPHINE HCL/NALOXONE HCL (Suboxone 8 MG-2 MG Sl Film) 1 EACH FILM1 MILLIGRAM SublinguallySUMATRIPTAN SUCCINATE (Imitrex*) 50 MG [id number] MILLIGRAM Orally DAILY NEEDED as needed for HeadacheOxcarbazepine (Trileptal) 150 MG [id number] MILLIGRAM Orally TWICE DAILYDischarge Activity: As tolerated, No liftingDischarge diet: RegularFollow-upFollow up with the mental health doctor [facility] spent by provider to complete discharge > 30 minutesDATE SIGNED: 12/05/19 Electronically SignedTIME SIGNED: 1912 DIOGENES BUENO MD Name Value Range Interpretation Code Description Data [place] rce(s) Supporting Document(s) ID Date Data Source [id number] 12/05/2019 09:46:00 AM EDT [place], [place] [address]PATIENT NAME: BRUNA LEE#: [id number] PHYSICIAN: YI KLEIN #: [id number] ADM. DATE: 12/04/19PATIENT : 89 DISCH. DATE: [50}DISCHARGE SUMMARYMedical Discharge PlanNicotine Replacement TherapyPrescribed at discharge Rx not offered at DCReason not offered pt is going to [facility] Care InstructionsDischarge Activity: As tolerated, No liftingDischarge diet: RegularProblem ListMedical ProblemsAcute respiratory failure (Acute)Drug abuse (Chronic)Drug overdose (Acute)SchizophreniaSeizure disorder (Chronic, 12/20/18)Follow Up CareFollow Up:Follow up with the mental health doctor [facility]Priority ItemsUrgent/Important items that need to be addressed at primary care follow-upappointmentPLEASE AVOID GABAPENTIN/XANAX/BATH SALTS IN THE FUTUREDischarge InformationDISCHARGE INFORMATION* Thank you for choosing [facility] and allowing us toserve you* Our Goal [...] Hour Crisis HOTLINE available: Call [employer] at [phone] SMOKING CESSATION* Smoking is dangerous to your health. It delays the healing process, andworks against your medications. Not smoking will improve your health* Our hospital participates with the Opt-to-Quit program. You will be contactedafter discharge by the [facility] Smoker's Quitline for support with tobaccocessation. You have the option once contacted to refuse this service.* You can also go online to www.Freespee. Free nicotine replacementsare available Attent ion* You [...] rce(s) Supporting Document(s) ID Date Data Source [id number] 12/06/2019 02:37:00 AM EDT [facility] [address] [address]SHWJLPS NAME: JESUSBRUNA Joe Orellana#: [id number] PHYSICIAN: BEHZAD HOGAN MD ADM. DATE: 12/04/19CONSULTING PHYSICIAN: PRERNA RIOS MD .#: ICUACCOUNT #: [id number] REPORTIDENTIFICATION: A 34-year-old female with mood disorder. This is a shortconsultation for a 34-year-old female who was unresponsive. The patient is inICU and at this point it is not clear the reason for an overdose.According to the records, the patient has a history of seizures, GERD, carpaltunnel, adjustment disorder, anxiety, depression, PTSD, and ADHD. Accordingto the records, the patient went to [facility] for an evaluation. Shehad an overdose. Was unconscious and at that point, according to the records,she stated that she injected bath salts in the morning, that is when shebecame unconscious and it is not clear who called the EMS that brought her [facility]. The patient has poor response to [...] the lastthing she remembers is being at [place] so she is oriented to person, not [...] Dictated: 12/05/2019 09:24:19Date Transcribed: 12/06/2019 01:37:33JV/GBJob #: [id number]: 12/05/19923 Electronically SignedTRANS:12/06/19 0237 PRERNA RIOS MDTRANS BY:ADE SIGNED:12/09/19REPORT COPY TO: Name Value Range Interpretation Code Description Data [place] rce(s) Supporting Document(s) ID Date Data Source [id number] 12/05/2019 08:01:00 AM EDT [facility] Patient: COME, BRUNA Observation Repor t - Physicians/[facility].VisitID: [id number] [place] [address] [phone], FRegistration Date/Time: 12/04/2019 15:46 Weight:68.4 kg (E). [...] significant family medical history. (Electronically signed by Maire Euceda 12/04/2019 20:43) Addenda for JESUSBRUNA VisitID: [id number] Date: 12/04/2019 12/05/2019 7:59Spoke to [facility] nurse Deborah who wanted to come to [place] to see patient. Advised Deborah that the patient was transferred to [facility]. (Electronically signed by Allyssa Paredes R.N. - 12/05/2019 7:59) Name Value Range Interpretation Code Description Data [place] rce(s) Supporting Document(s) ID Date Data Source [id number] 12/05/2019 07:34:00 AM EDT [facility] james Name Value Range Interpretation Code Description Data [place] rce(s) Supporting Document(s) GLU 76 mg/dL 70-110 [facility] Patients taking Sulfasalazine may have f alsely depressedGlucose levels. Patients taking Sulfapyridine may havefalsely elevated Glucose levels. Patients should be drawnfor Glucose before the initial administration of eitherdrug. BUN 7 mg/dL 7-23 [facility] CRE 0.500 mg/dL 0.500-1.300 [facility] GFR > 60 mL/min [facility] CHLORIDE 117 mmol/L 99-110 [facility] NA 146 mmol/L 136-147 [facility] POTASSIUM 3.5 mmol/L 3.5-5.1 [facility] TCO2 22 mmol/L 20-33 [facility] ANION GAP 10.5 10.0-20.0 [facility] CA 7.8 mg/dL 8.3-10.7 [facility] ALKALINE PHOS 59 U/L 45-117 [facility] TP 5.7 g/dL 6.0-7.8 [facility] ALB 2.6 g/dL 3.5-5.0 [facility] ESRD Dialysis patient Albumin reference range: 2.9-4.4 g/dL GL 3.1 g/dL 2.3-3.5 [facility] A/G 0.8 1.0-2.5 [facility] T. BILIRUBIN 0.3 mg/dL 0.1-1.1 [facility] The [employer]ension [place] Total Bilirubin is n ot recommended forpatients undergoing treatment with eltrombopag (Promacta)due to the potential for falsely elevated results. ALTI 15 U/L 6-54 [facility] Patients taking Sulfasalazine and/or Sul fapyridine may havefalsely depressed ALT levels. Patients should be drawn forALT before the initial administration of either drug. AST 26 U/L 6-38 [facility] Patients taking Sulfasalazine and/or Sul fapyridine may havefalsely depressed AST levels. Patients should be drawn forAST before the initial administration of either drug. ID Date Data Source [id number] 12/05/2019 07:08:00 AM EDT [facility] Name Value Range Interpretation Code Description Data [place] rce(s) Supporting Document(s) WBC 5.38 x10E3/uL 4.0-10.5 [facility] RBC 3.55 x10E6/uL 4.20-5.40 [facility] Hemoglobin 10.6 g/dL 12.0-16.0 [facility] Hematocrit 32.9 % 37.0-47.0 [facility] MCV 92.7 fL 81.0-99.0 [facility] MCH 29.9 pg 27.0-31.0 [facility] MCHC 32.2 g/dL 32.7-35.6 [facility] RDW 13.1 % 11.5-14.0 [facility] Platelet count 251 x10E3/uL 150-450 [facility] ital MPV 10.8 fl 6.9-9.5 [facility] Neutrophils 43.4 % 34-64 [facility] Lymphocytes 44.4 % 25-45 [facility] Monocytes 8.6 % 1.7-10.6 [facility] Eosinophils 2.6 % 0.4-7.0 [facility] Basophils 0.6 % 0.1-2.0 [facility] Imm. Gran. 0.4 % 0.1-2.0 [facility] Abs. Neutro. 2.34 x10E3/uL 1.2-7.6 [facility] Abs. Lymph. 2.39 x10E3/uL 1.0-3.5 [facility] Abs. Ross. 0.46 x10E3/uL 0.1-1.0 [facility] Abs. Eosin. 0.14 x10E3/uL 0.1-0.7 [facility] Abs. Baso. 0.03 x10E3/uL 0.0-0.1 [facility] Abs. Imm. Gran. 0.02 x10E3/uL 0.0-0.1 [facility] spital ANRBC% 0 % 0 [facility] ID Date Data Source [id number] 12/05/2019 07:07:00 AM EDT [facility] Name Value Range Interpretation Code Description Data [place] rce(s) Supporting Document(s) TROPI < 0.015 ng/mL 0.000-0.079 [facility] ID Date Data Source [id number] 12/10/2019 06:07:00 AM EDT [facility] Performed at: [address] [id number] Director: Robyn Julio MD, Phone: [phone] Name Value Range Interpretation Code Description Data [place] rce(s) Supporting Document(s) LEVETIRACETAM <1.0 ug/mL 10.0-40.0 [facility] Verified by repeat analysisThis test was developed and its performance characteristicsdetermined by [facility]. It has not been cleared orapproved by the Food and Drug Administration. ID Date Data Source [id number] 12/05/2019 12:20:00 AM EDT [facility] Name Value Range Interpretation Code Description Data [place] rce(s) Supporting Document(s) LACTIC ACID CHUCHO 0.4 mmol/L 0.4-2.0 [facility] ID Date Data Source [id number] 12/05/2019 12:20:00 AM EDT [facility] Name Value Range Interpretation Code Description Data [place] rce(s) Supporting Document(s) TROPI < 0.015 ng/mL 0.000-0.079 [facility] ID Date Data Source [id number] 12/05/2019 12:20:00 AM EDT [facility] Name Value Range Interpretation Code Description Data [place] rce(s) Supporting Document(s) MAGNESIUM 2.1 mg/dL 1.6-2.6 [facility] ID Date Data Source [id number] 12/05/2019 12:20:00 AM EDT [facility] Name Value Range Interpretation Code Description Data [place] rce(s) Supporting Document(s) MARGUERITE 3.2 mg/dL 2.5-4.5 [facility] ID Date Data Source [id number] 12/05/2019 12:20:00 AM EDT [facility] Name Value Range Interpretation Code Description Data [place] rce(s) Supporting Document(s) GLU 104 mg/dL 70-110 [facility] Patients taking Sulfasalazine may have f alsely depressedGlucose levels. Patients taking Sulfapyridine may havefalsely elevated Glucose levels. Patients should be drawnfor Glucose before the initial administration of eitherdrug. BUN 7 mg/dL 7-23 [facility] CRE 0.504 mg/dL 0.500-1.300 [facility] GFR > 60 mL/min [facility] CHLORIDE 115 mmol/L 99-110 [facility] NA 145 mmol/L 136-147 [facility] POTASSIUM 3.6 mmol/L 3.5-5.1 [facility] TCO2 27 mmol/L 20-33 [facility] ANION GAP 6.6 10.0-20.0 [facility] CA 7.6 mg/dL 8.3-10.7 [facility] ALKALINE PHOS 63 U/L 45-117 [facility] TP 5.8 g/dL 6.0-7.8 [facility] ALB 2.8 g/dL 3.5-5.0 [facility] ESRD Dialysis patient Albumin reference range: 2.9-4.4 g/dL GL 3.0 g/dL 2.3-3.5 [facility] A/G 0.9 1.0-2.5 [facility] T. BILIRUBIN 0.2 mg/dL 0.1-1.1 [facility] The [facility] [place] Total Bilirubin is n ot recommended forpatients undergoing treatment with eltrombopag (Promacta)due to the potential for falsely elevated results. ALTI 18 U/L 6-54 [facility] Patients taking Sulfasalazine and/or Sul fapyridine may havefalsely depressed ALT levels. Patients should be drawn forALT before the initial administration of either drug. AST 22 U/L 6-38 [facility] Patients taking Sulfasalazine and/or Sul fapyridine may havefalsely depressed AST levels. Patients should be drawn forAST before the initial administration of either drug. ID Date Data Source [id number] 12/05/2019 12:01:00 AM EDT [facility] Name Value Range Interpretation Code Description Data [place] rce(s) Supporting Document(s) WBC 7.56 x10E3/uL 4.0-10.5 [facility] RBC 3.54 x10E6/uL 4.20-5.40 [facility] Hemoglobin 10.5 g/dL 12.0-16.0 [facility] Hematocrit 32.9 % 37.0-47.0 [facility] MCV 92.9 fL 81.0-99.0 [facility] MCH 29.7 pg 27.0-31.0 [facility] MCHC 31.9 g/dL 32.7-35.6 [facility] RDW 13.1 % 11.5-14.0 [facility] Platelet count 301 x10E3/uL 150-450 [facility] ital MPV 9.8 fl 6.9-9.5 [facility] Neutrophils 57.9 % 34-64 [facility] Lymphocytes 31.7 % 25-45 [facility] Monocytes 7.8 % 1.7-10.6 [facility] Eosinophils 1.9 % 0.4-7.0 [facility] Basophils 0.4 % 0.1-2.0 [facility] Imm. Gran. 0.3 % 0.1-2.0 [facility] Abs. Neutro. 4.38 x10E3/uL 1.2-7.6 [facility] Abs. Lymph. 2.40 x10E3/uL 1.0-3.5 [facility] Abs. Ross. 0.59 x10E3/uL 0.1-1.0 [facility] Abs. Eosin. 0.14 x10E3/uL 0.1-0.7 [facility] Abs. Baso. 0.03 x10E3/uL 0.0-0.1 [facility] Abs. Imm. Gran. 0.02 x10E3/uL 0.0-0.1 [facility] spital ANRBC% 0 % 0 [facility] ID Date Data Source [id number] 12/04/2019 11:12:00 PM EDT [facility] [address] [address]MMKLXOR AND PHYSICALPATIENT NAME: BRUNA LEE MR#: [id number] PHYSICIAN: BEHZAD HOGAN MDAUTHOR: Behzad Hogan MD DATE: 12/04/19 #: ICUHISTORY & PHYSICAL DATE: 12/04/19 : 87EVALUATION TIME: 2330HistoryChief Complaint/Admit ReasonOverdoseHistory of Presenting [id number] female history of drug abuse, stress-induced seizures, GERD,bilateral carpal tunnel, adjustment disorder with mixed anxiety and depression,PTSD, ADHD who presents as a transfer from [facility] for evaluation.Patient presented to the wellness clinic for evaluation for overdose andunconsciousness upon arrival at the wellness center patient reported that shehad injected with bath salts this morning and soon after became unconscious EMSwas called and patient was brought to the ED at [facility] for evaluation.At the ED [facility] patient received verbal stimuli and [...] was negative for PE or dissection. [facility] also hypotensive into the 80s systolic received a liter bolus andblood pressure improved into the low 90s to 100s. Patient was transferred [facility] for further management. I evaluated patient inthe ICU patient remains obtunded unable to give any history. Nurse reportedpatient woke up few times and was able to answer simple questions. Patient hadreceived flumazenil and Narcan and Ativan at [facility] before arrival [facility].Past [...] obtain as patient is obtundedExamVital SignsVital Signs-24 [id number] 98.2Pulse 62Resp 16B/P 91/52B/P MeanPulse Ox 98O2 DeliveryO2 Flow RwehCuR6Hbwkmtcq ExaminationGeneral Appearance no acute distress, ObtundedHead normocephalicENT [...] % (auto) (0 %) 0ToxicologyLevetiracetam PendingLabs from [facility] reviewed.ImagingCT head done at [facility].Impression:No acute cranial abnormality.CT pulmonary angiogram done at [facility].Impression:No evidence of pulmonary embolic disease.Cardiology/EKGEKG: Done at [facility].Sinus rhythm rate of 83 bpm. Very minimal (less than 1 mm )ST depression inlead II, V4 and V5.Assessment/PlanDiagnosis/Problem1. Drug overdoseStatus AcuteA&PPatient injected bath salts and also reported taking Xanax and unknown amountof gabapentin. Expressed suicidal ideations as documented at [facility].-Poison control contacted.-Monitor on telemetry.-IV fluids.-Check troponins.-Monitor electrolytes.-Supportive care.2. Seizure disorderStatus ChronicOnset Date 12/20/18A&PCheck Keppra level continue Keppra as necessary.CQM VTE HISTORYVTE HISTORYPrior VTE? NoDATE SIGNED: 12/05/19 Electronically SignedTIME SIGNED: 0708 BEHZAD HOGAN MD Name Value Range Interpretation Code Description Data [place] rce(s) Supporting Document(s) ID Date Data Source [id number] 12/04/2019 11:26:00 PM EDT [facility] Name Value Range Interpretation Code Description Data [place] rce(s) Supporting Document(s) FGLU 80 mg/dL 70-110 [facility] ID Date Data Source [id number] 12/04/2019 09:28:00 PM EDT [facility] Patient: COME, BRUNA Observation Repor t - Physicians/Mid Levels [facility].VisitID: [id number] [place] [address] [phone], FRegistration Date/Time: 12/04/2019 15:46 Weight:68.4 kg (E). [...] rce(s) Supporting Document(s) ID Date Data Source [id number] 12/04/2019 08:43:00 PM EDT [facility] [...] rce(s) Supporting Document(s) ID Date Data Source [id number] 12/04/2019 07:09:00 PM EDT [facility] Name Value Range Interpretation Code Description Data [place] rce(s) Supporting Document(s) SARS COV2 TRP [facility] and reported by [facility]. ID Date Data Source [id number] 12/04/2019 08:26:00 PM EDT [facility] TSYSORDER [id number] Name Value Range Interpretation Code Description Data [place] rce(s) Supporting Document(s) Adenovirus Not Detected Detected Not [facility] ospital Coronavirus 229E Not Detected Detected Not [facility] Coronavirus HKU1 Not Detected Detected Not [facility] Coronavirus NL63 Not Detected Detected Not [facility] Coronavirus OC43 Not Detected Detected Not [facility] Sars Cov 2 Not Detected Detected Not [facility] Metapneumovirus Not Detected Detected Not [facility] Human Rhinovirus Not Detected Detected Not [facility] Influenza A Not Detected Detected [facility] Influenza B Not Detected Detected Not [facility] Parainfluenza Virus 1 Not Detected Detected Not [facility] Parainfluenza Virus 2 Not Detected Detected Not [facility] Parainfluenza Virus 3 Not Detected Detected Not [facility] Parainfluenza Virus 4 Not Detected Detected Not [facility] Respiratory Syncytial Virus Not Detected Detected Not [facility] Bordetella parapertus (ZH1966) Not Detected Detected Not [facility] Bordetella pertussis (ptxP) Not Detected Detected Not [facility] Chlamydia pneumoniae Not Detected Detected Not [facility] Mycoplasma pneumoniae Not Detected Detected Not [facility] The Above results have been determined b y using the [employer] FilmArray system.FilmArray is an automated in vitro diagnostic system thatutilizes nested multiplex Polymerase Chain Reaction (PCR)and high-resolution melting analysis to detect and identifymultiple nucleic acid targets from clinical specimens. ID Date Data Source [id number] 12/04/2019 06:58:00 PM EDT [facility] l CT Chest and CT Pulmonary Angiogram [...] rce(s) Supporting Document(s) ID Date Data Source [id number] 12/04/2019 06:56:00 PM EDT [facility] [...] Value Range Interpretation Code Description Data [facility] rce(s) Supporting Document(s) ID Date Data Source [id number] 12/04/2019 05:47:00 PM EDT [facility] l TSYSORDER [id number] Name Value Range Interpretation Code Description Data [facility] rce(s) Supporting Document(s) URINE AMPHETAMINES NEGATIVE <1000 ng/mL [facility] pital THC,URINE NEGATIVE <50 ng/mL [facility] URINE BARBITURATES NEGATIVE <300 ng/mL [facility] ital PCP,URINE NEGATIVE <25 ng/mL [facility] COCAINE, URINE NEGATIVE <300 ng/mL [facility] URINE,OPIATES NEGATIVE <300 ng/mL [facility] URINE,TCA POSITIVE <1000 ng/mL H [facility] URINE BENZODIAZEPINES NEGATIVE <300 ng/mL [facility] THESE TESTS ARE PERFORMED USING AN IMMU NOASSAY FOR THEQUALITATIVE DETERMINATION OF THE PRESENCE OF THE MAJORMETABOLITES OF DRUGS OF ABUSE. THESE TESTS ARE ONLY ASCREENING AND NOT CONFIRMATORY. CLINICAL CONSIDERATION ANDPROFESSIONAL JUDGMENT MUST BE APPLIED TO ANY DRUG OF ABUSETEST RESULT. ID Date Data Source [id number] 12/04/2019 05:30:00 PM EDT [facility] l TSYSORDER [id number] Name Value Range Interpretation Code Description Data [facility] rce(s) Supporting Document(s) HCG URINE NEGATIVE NEGATIVE [facility] ID Date Data Source [id number] 12/04/2019 05:39:00 PM EDT [facility] ital TSYSORDER [id number] Name Value Range Interpretation Code Description Data [facility] rce(s) Supporting Document(s) URINE COLOR. LIGHT YELLOW [facility] URINE APPEARANCE CLEAR [facility] l URINE GLUCOSE (UA) NEGATIVE mg/dL NEGATIVE [facility] URINE BILIRUBIN NEGATIVE NEGATIVE [facility] URINE KETONE NEGATIVE mg/dL NEGATIVE [facility] SPECIFIC GRAVITY,URINE 1.010 1.001-1.035 [facility] URINE BLOOD NEGATIVE NEGATIVE [facility] PH,URINE 7.5 5.0-9.0 [facility] URINE PROTEIN NEGATIVE mg/dL NEGATIVE [facility] URINE UROBILINOGEN NORMAL(0.2-1) mg/dL 0-1 [facility] URINE NITRATE NEGATIVE NEGATIVE [facility] URINE LEUKOCYTE ESTERASE NEGATIVE NEGATIVE [facility] ID Date Data Source [id number] 12/04/2019 06:09:00 PM EDT [facility] l Name Value Range Interpretation Code Description Data [place] rce(s) Supporting Document(s) CKMB 1.8 ng/ml 0.0-3.6 [facility] ID Date Data Source [id number] 12/04/2019 04:47:00 PM EDT [facility] l Name Value Range Interpretation Code Description Data [place] rce(s) Supporting Document(s) SALICYLATE 3.5 mg/dL 2.8-20.0 [facility] ID Date Data Source [id number] 12/04/2019 04:47:00 PM EDT [facility] l Name Value Range Interpretation Code Description Data [place] rce(s) Supporting Document(s) ETHYL ALCOHOL 0.00 % 0-0.01 [facility] ID Date Data Source [id number] 12/04/2019 04:47:00 PM EDT [facility] l Name Value Range Interpretation Code Description Data [place] rce(s) Supporting Document(s) ACETAMINOPHEN LEVEL < 2.0 mcg/mL 10-30 L [facility] ospital ID Date Data Source [id number] 12/04/2019 04:47:00 PM EDT [facility] l Name Value Range Interpretation Code Description Data [place] rce(s) Supporting Document(s) GLUCOSE 81 mg/dL 74-106 [facility] BLOOD UREA NITROGEN 10 mg/dL 7-18 [facility] ital CREATININE 0.7 mg/dL 0.6-1.0 [facility] SODIUM 139 mmol/L 136-145 [facility] POTASSIUM 4.3 mmol/L 3.5-5.1 [facility] CHLORIDE 102 mmol/L 98-107 [facility] CO2 33 mmol/L 21-32 H [facility] CALCIUM 9.2 mg/dL 8.5-10.1 [facility] ANION GAP 4.0 mmol/L 5-12 L [facility] GLOMERULAR FILTRATION RATE >90 mL/min [facility] GFR IS CALCULATED IN mL/min/1.73m2 LISANDRA L FUNCTION: >90MILDLY DECREASED: 60-89MILDY TO MODERATELY DECREASED: 45-59 MODERATELY TO SEVERELY DECREASED: 30-44SEVERELY DECREASED: 15-29RENAL FAILURE: <15 AST 40 U/L 15-37 H [facility] ALT 27 U/L 12-78 [facility] ALKALINE PHOSPHATASE 68 U/L 46-116 [facility] TOTAL BILIRUBIN 0.3 mg/dL 0.2-1.0 [facility] TOTAL PROTEIN 7.4 g/dl 6.4-8.2 [facility] ALBUMIN 3.9 gm/dL 3.4-5.0 [facility] ID Date Data Source [id number] 12/04/2019 04:46:00 PM [facility] TSYSORDER [id number] Name Value Range Interpretation Code Description Data [facility] rce(s) Supporting Document(s) AMMONIA 39 umol/L 11-32 H [facility] ID Date Data Source [id number] 12/04/2019 04:19:00 PM [facility] TSYSORDER [id number] Name Value Range Interpretation Code Description Data [facility] rce(s) Supporting Document(s) WHITE BLOOD COUNT 9.8 K/mm3 4.0-10.0 [facility] al RED BLOOD COUNT 4.11 M/mm3 4.00-5.50 [facility] HEMOGLOBIN 12.3 gm/dL 12.0-16.0 [facility] HEMATOCRIT 37.9 % 36.0-48.8 [facility] MEAN CELL VOLUME 92.2 fl 80-96 [facility] MEAN CORPUSCULAR HEMOGLOBIN 29.9 pg 27.0-31.0 [facility] MEAN CORPUSCULAR HGB CONC 32.5 g/dl 32.0-36.0 [facility] RED CELL DISTRIBUTION WIDTH 13.0 % 10.0-14.5 [facility] PLATELET COUNT 368 K/mm3 172-450 [facility] MEAN PLATELET VOLUME 9.5 fl 9.0-13.0 [facility] pital GRAN % 71.0 % 50-80.0 [facility] IG% 0.2 % 0.0-0.2 [facility] LYMPH % 20.5 % 25.0-50.0 L [facility] MONO % 7.1 % 2.0-10.0 [facility] EOS % 1.0 % 0-5.0 [facility] BASO % 0.2 % 0.0-2.0 [facility] GRAN # 7.0 K/mm3 2.0-8.00 [facility] IG# 0.0 K/mm3 0.0-0.2 [facility] LYMPH # 2.0 K/mm3 1.0-5.0 [facility] MONO # 0.7 K/mm3 0.10-1.20 [facility] EOS # 0.1 K/mm3 0.0-0.5 [facility] BASO # 0.0 K/mm3 0.0-0.2 [facility] ID Date Data Source [id number] 12/11/2019 08:09:00 PM EDT [facility] Name Value Range Interpretation Code Description Data [place] rce(s) Supporting Document(s) LEVETIRACETAM, S <1.0 ug/mL 10.0-40.0 L [facility] Verified by repeat analysisThis test was developed and its performance characteristicsdetermined by [facility]. It has not been cleared orapproved by the Food and Drug Administration.Performed at: [address] [id number] Director: Robyn Julio MD, Phone: [phone] ID Date Data Source [id number] 12/11/2019 08:05:00 PM [facility]T [facility] Name Value Range Interpretation Code Description Data [place] rce(s) Supporting Document(s) Levetiracetam, S 10.0-40.0 Below low normal [facility] Verified by repeat analysisThis test was developed and its performance characteristicsdetermined by [employer]. It has not been cleared or approvedby the Food and Drug Administration. ID Date Data Source [id number] 12/04/2019 05:04:00 PM EDT [facility] TSYSORDER [id number] Name Value Range Interpretation Code Description Data [place] rce(s) Supporting Document(s) DDIMER 0.74 mg/LFEU 0.19-0.60 [facility] ID Date Data Source [id number] 12/04/2019 12:00:00 AM EDT [facility] Name Value Range Interpretation Code Description Data [place] rce(s) Supporting Document(s) 2019 Novel Coronavirus RNA [facility] This lab was ordered by [facility] aboratory and reported by [facility]. ID Date Data Source [id number] 11/07/2019 12:19:00 AM EDT [facility] 1 OrderSheet [facility] Emergency Department [address] [place] [address] Phone #: ext- [phone] 11/07/2019 00:19 Patient: [...] Evonne Anne R.N. R.N.x1) MNeo; 2 OrderSheet [facility] Emerg ency Department [address] [place] [address] Phone #: ext- [phone] 11/07/2019 00:19 Patient: BRUNA LEE Sex: F : 1985 Age: 34yGENERAL ORDERSOrder Description Priority Entered Acknowledged Initialed[Electronically signed by Mara Gonzalez R.N. (04:11/07/2019)][Electronically signed by Evonne Anne M.D. (05:23 11/07/2019)][Electronically locked by Mara Gonzalez R.N. (11/07/2019)] Name Value Range Interpretation Code Description Data [place] rce(s) Supporting Document(s) ID Date Data Source [id number] 11/07/2019 12:19:00 AM EDT [facility] 1 Medication Reconciliation Report [facility] Emergency Department [address] [place] [address] Phone #: ext- [phone] 11/07/2019 00:19 Patient: [...] rce(s) Supporting Document(s) ID Date Data Source [id number] 11/07/2019 12:19:00 AM EDT [facility] 1 Medication Administration Record [facility] Emergency Department [address] [place] [address] Phone #: ext [phone] 11/07/2019 00:19 Patient: BRUNA LEE Sex: F : 1985 Age: 34yWeight: 78.9 kgHeight/Length: 60 inBMI: 34ALLERGIES: Penicillins, Sulfa Antibiotics Date/Time Medication Administered Medication OrderedStart IV NS NS IV 1000 mL Bolus: : Bolus [id number] 11/07/2019 Dose: IV Fluids mL (X1)Meme Maldonado R.N. Rate: 999 mL/hr---- Dispensed: 1000 mL bagStop Site: #1 left wrist03:55 11/07/2019Mara Gonzalez R.N.Given ZOFRAN [IVP] (ONDANSETRON HCL) Zofran 4 mg IVP X 1 dose: 4 mg02:22 11/07/2019 Dose: 4 mg IVP (NOW x1)Meme Maldonado R.N. Site: #1 left wrist Name Value Range Interpretation Code Description Data [place] rce(s) Supporting Document(s) ID Date Data Source [id number] 11/07/2019 12:19:00 AM EDT [facility] 1 General Instructions [facility] Emergency Department [address] [place] [address] Phone #: ext- [phone] 11/07/2019 00:19 Patient: [...] to plan of care. 2 General Instructions [facility] Emergency Department [address] [place] [address] Phone #: ext- [phone] 11/07/2019 00:19 Patient: [...] Tiredness Inability to sleep 3 General Instructions [facility] Emergency Department [address] [place] [address] Phone #: ext- [phone] 11/07/2019 00:19 Patient: BRUNA LEE Sex: F [...] help you manage stress. 4 General Instructions [facility] Emergency Department [address] [place], [place] [address] Phone #: ext- [phone] 11/07/2019 00:19 Patient: BRUNA LEE Sex: F [...] relieved by rest and mild pain reliever [id number] [employer]. [address] [place] [address]. All rights reserved. This information is not intended as asubstitute for professional medical care. Always follow your healthcare professional's instructions. You have been given the following additional information: Anxiety Reaction(Electronically signed by Evonne Anne M.D. 11/07/2019 05:23) Name Value Range Interpretation Code Description Data [place] rce(s) Supporting Document(s) ID Date Data Source [id number] 11/07/2019 12:19:00 AM EDT [facility] 1 Clinical Report - Nurses [facility] Emergency Department [address] [place] [address] Phone #: ext- [phone] 11/07/2019 00:19 Patient: BRUNA LEE Sex: F : 1985 Age: 34yTRIAGEHistorian: EMS and patient.Triage time: 00:24 11/07/2019.Chief Complaint: NAUSEA and ("face swelling").Onset. (states that it has been going on all day.). ( states that she has been sleeping a lot and used Molly2 days ago. 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 --00:27 11/07/19 [...] last month. 2 Clinical Report - Nurses [facility] Emergency Department [address] [place] [address] Phone #: ext- [phone] 11/07/2019 00:19 Patient: [...] pump. Allergies 3 Clinical Report - Nurses [facility] Emergency Department [address] [place] [address] Phone #: ext- [phone] 11/07/2019 00:19 Patient: BRUNA LEE Sex: F [...] patient is calm and resting quietly. ( Norris provided. Reassurance given to pt. Lights dimmed. [...] Patient verbalized understanding. Written instructions provided in Nigerian. The patient was discharged by the physician. 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 2 Clinical Report - Physicians/Mid Levels [facility] Emergency Department [address] [place] [address] Phone #: ext- [phone] 11/07/2019 00:19 Patient: BRUNA LEE Sex: F [...] (Reference) 3 Clinical Report - Physicians/Mid Levels [facility] Emergency Department [address] [place] [address] Phone #: ext- [phone] 11/07/2019 00:19 Patient: [...] Male GFR Interprentation 20-49 yrs >60 mL/min Wtnhhh87-25 yrs >56 mL/min Normal 60- 69 yrs >49 mL/min Normal 70-79yrs>42 mL/min Normal 80 and above >35 mL/min Normal Female GFRInterpretation 20-39 yrs >60 mL/min Normal 40-49 yrs >58 mL/minNormal 50-59 yrs >51 mL/min Normal 60-69 yrs >45 mL/min Normal 4 Clinical Report - Physicians/Mid Levels [facility] Emergency Department [address] [place] [address] Phone #: ext- [phone] 11/07/2019 00:19 Patient: BRUNA LEE Sex: F : 1985 Age: 32i37-79 yrs >39 mL/min Normal 80 and above >32 mL/min NormalBeta-HCG, Qual Serum: (JENN: 11/07/2019 02:15) ( [facility] 11/07/2019 03:20) Final results Test Result Flag Units (Reference) HCG SERUM QUAL NEGATIVE (NORMAL: NEGAT HCG SERUM QL REENTER NEGATIVE (NORMAL: NEGAT { KIT LOT # [id number] ){ KIT EXP [id number] ){ PROCEDURAL CONTROL VALID)CPK: (JENN: 11/07/2019 02:15) ( [facility] 11/07/2019 03:15) Final results Test Result Flag Units (Reference) CPK 313 H U/L (30 - 170)Drug Screen-Urine: (JENN: 11/07/2019 02:00) ( [facility] 11/07/2019 03:15) Final results Test Result Flag [...] PRESUMPTIVE POSITIVE CONFIRMATION WILL BE PERFORMED AT [facility].Urinalysis: (JENN: 11/07/2019 02:00) ( [facility] 11/07/2019 02:28) Final results Test Result Flag [...] Indicate 5 Clinical Report - Physicians/Mid Levels [facility] Emergency Department [address] [place] [address] Phone #: ext- [phone] 11/07/2019 00:19 Patient: [...] was requested by: Evonne Anne Reference #: [id number] Others' Prescriptions Patient Name: Bruna LeeBirth Date: 1985 Address: [address] [place], [place] [address]Sex: Female Rx Written Rx Dispensed Drug Quantity [...] table. 6 Clinical Report - Physicians/Mid Levels [facility] Emergency Department [address] [place] [address] Phone #: ext- [phone] 11/07/2019 00:19 [id number] Sex: F : 1985 Age: 34y 03:19 [...] Keppra Oral. 7 Clinical Report - Physicians/Mid [facility] Emergency Department [address] [place] [address] Phone #: ext- [phone] 11/07/2019 00:19 Patient: [...] rce(s) Supporting Document(s) ID Date Data Source [id number] 11/07/2019 03:20:00 AM EDT [facility] Name Value Range Interpretation Code Description Data [place] rce(s) Supporting Document(s) HCG SERUM QUAL NEGATIVE NORMAL: NEGATIVE [facility] HCG SERUM QL REENTER NEGATIVE NORMAL: NEGATIVE [facility] { KIT LOT # [id number] ){ KIT EXP DATE 12-08-20 ){ PROCEDURAL CONTROL VALID ) ID Date Data Source [id number] 11/07/2019 03:15:00 AM EDT [facility] Name Value Range Interpretation Code Description Data [place] rce(s) Supporting Document(s) Creatine kinase [Enzymatic activity/volume] in Serum or Plasma 3 13 U/L 30 - 170 H [facility] ID Date Data Source [id number] 11/07/2019 03:14:00 AM EDT [facility] Name Value Range Interpretation Code Description Data [place] rce(s) Supporting Document(s) COMPREHENSIVE METABOLIC PANEL [facility] COMPREHENSIVE METABOLIC PANEL Sodium [Moles/volume] in Serum or Plasma 140 mEq/L 134 - 153 [facility] Potassium [Moles/volume] in Serum or Plasma 3.8 mEq/L 3.6 - 5.0 [facility] Chloride [Moles/volume] in Serum or Plasma 100 mEq/L 98 - 107 [facility] Carbon dioxide, total [Moles/volume] in Serum or Plasma 30 MEQ/L 22 - 30 [facility] Glucose [Mass/volume] in Serum or Plasma 98 MG/DL 65 - 110 [facility] BUN 14 MG/DL 7 - 21 [facility] al Creatinine [Mass/volume] in Serum or Plasma 0.7 MG/DL 0.7 - 1.5 [facility] BUN/CREAT 20 8 - 27 [facility] al Protein [Mass/volume] in Serum or Plasma 5.9 G/DL 6.3 - 8.2 L [facility] Albumin [Mass/volume] in Serum or Plasma 3.6 G/DL 3.9 - 5.0 L [facility] Globulin [Mass/volume] in Serum by calculation 2.3 GM/DL 2.4 - 3.2 L [facility] A/G RATIO 1.6 0.8 - 2.0 [facility] Calcium [Mass/volume] in Serum or Plasma 9.2 MG/DL 8.4 - 10.2 [facility] Bilirubin.total [Mass/volume] in Serum or Plasma <0.7 MG/DL 0.2 - 1.3 [facility] Alkaline phosphatase [Enzymatic activity/volume] in Serum or Plasma 62 U/L 38 - 126 [facility] Aspartate aminotransferase [Enzymatic activity/volume] in Serum or Plasma 302 U/L 5 - 40 H [facility] Alanine aminotransferase [Enzymatic activity/volume] in Seru m or Plasma 125 U/L 7 - 56 H [facility] Anion gap 3 in Serum or Plasma 10.0 mmol/L 8.0 - 16.0 [facility] 34 [facility] >60 mL/min [facility] ital AFR AMER GFR >60 mL/min Gracie [...] >32 mL/min Normal ID Date Data Source [id number] 11/07/2019 02:27:00 AM EDT [facility] Name Value Range Interpretation Code Description Data [place] rce(s) Supporting Document(s) CBC W/AUTOMATED DIFF [facility] COMPLETE BLOOD COUNT Leukocytes [#/volume] in Blood by Automated count 8.3 10^3/uL 4.2 - 1 1.0 [facility] Erythrocytes [#/volume] in Blood by Automated count 3.87 10^6/uL 4. 20 - 5.40 L [facility] Hemoglobin [Mass/volume] in Blood 11.6 g/dL 12.0 - 16.0 L [facility] Hematocrit [Volume Fraction] of Blood by Automated count 36.0 % 3 7.0 - 47.0 L [facility] Erythrocyte mean corpuscular volume [Entitic volume] by Auto mated count 93.0 fL 81.0 - 101 [facility] Erythrocyte mean corpuscular hemoglobin [Entitic mass] by Automated count 30.0 pg 27.0 - 34.0 [facility] Erythrocyte mean corpuscular hemoglobin concentration [Mass/volume] by Automated count 32.2 g/dL 31.0 - 36.0 [facility] Erythrocyte distribution width [Ratio] by Automated count 13.3 % 11.5 - 14.5 [facility] Platelets [#/volume] in Blood by Automated count 271 10^3/uL 150 - 45 0 [facility] Platelet mean volume [Entitic volume] in Blood by Automated count 9.5 fL 7.4 - 10.4 [facility] Neutrophils/100 leukocytes in Blood by Automated count 82.6 % 37. 0 - 80.0 H [facility] Lymphocytes/100 leukocytes in Blood by Manual count 14.3 % 25.0 - 40.0 L [facility] Monocytes/100 leukocytes in Blood by Automated count 1.6 % 3.0 - 8.0 L [facility] Eosinophils/100 leukocytes in Blood by Automated count 0.8 % 0.0 - 7.0 [facility] Basophils/100 leukocytes in Blood by Automated count 0.2 % 0.0 - 2.5 [facility] %IG 0.5 % 0.0 - 0.0 [facility] %NRBC 0.0 % 0.0 - 0.0 [facility] al Neutrophils [#/volume] in Blood by Automated count 6.85 10^3/uL 2.00 - 6.90 [facility] Lymphocytes [#/volume] in Blood by Automated count 1.19 10^3/uL 0.60 - 3.40 [facility] Monocytes [#/volume] in Blood by Automated count 0.13 10^3/uL 0.00 - 0.90 [facility] Eosinophils [#/volume] in Blood by Automated count 0.07 10^3/uL 0.00 - 0.70 [facility] Basophils [#/volume] in Blood by Automated count 0.02 10^3/uL 0.00 - 0.20 [facility] #IG 0.04 10^3/uL 0.00 - 0.10 [facility] ospital #NRBC 0.00 10^3/uL 0.00 - 0.00 [facility] ospital MANUAL DIFF NOT INDICATED [facility] RBC MORPH NOT INDICATED [facility] spital ID Date Data Source [id number] 11/07/2019 03:14:00 AM EDT [facility] Name Value Range Interpretation Code Description Data [place] rce(s) Supporting Document(s) DRUG SCREEN URINE [facility] URINE DRUG SCREEN Amphetamine [Presence] in Urine by Screen method PRESUMP POS LISANDRA L: NEGATIVE [facility] BARBITURATES NEGATIVE NORMAL: NEGATIVE [facility] BENZO NEGATIVE NORMAL: NEGATIVE [facility] COCAINE NEGATIVE NORMAL: NEGATIVE [facility] Tetrahydrocannabinol [Presence] in Urine NEGATIVE NORMAL: NEGATIVE [facility] OPIATES NEGATIVE NORMAL: NEGATIVE [facility] Phencyclidine [Presence] in Urine by Screen method NEGATIVE NOR MAL: NEGATIVE [facility] \\BLDo\\URINE DRUG SCR EEN INTERPRETATION\\BLDx\\ THE CUTOFFF LEVELS FOR DETECTION ARE FOLLOWS: AMPHETAMINES 1000 ng/ml BARBITUARATES 200 ng/ml BENZODIAZEPINES 100 ng/ml THC 50 ng/ml PHENCYCLIDINE 25 ng/ml OPIATES 300 ng/ml COCAINE 300 ng/ml ALL POSITIVES ARE CONSIDERED PRESUMPTIVE POSITIVE CONFIRMATION WILL BE PERFORMED AT PHYSICIAN REQUEST. ID Date Data Source [id number] 11/07/2019 02:27:00 AM EDT [facility] Name Value Range Interpretation Code Description Data [place] rce(s) Supporting Document(s) [facility]IS [facility]INALYS[facility] SOURCE R [facility] al COLOR yellow NORMAL: Yellow [facility] ospital CLARITY clear NORMAL: Clear [facility] Ho spital Specific gravity of Urine by Test strip 1.020 1.001 - 1.030 [facility] pH 6 5 - 9 [facility] al Glucose [Mass/volume] in Urine by Test strip NORM NORMAL: Negat [facility] Bilirubin.total [Presence] in Urine by Test strip NEG NORMAL: Negative [facility] Ketones [Presence] in Urine by Test strip NEG NORMAL: Negative [facility] Protein [Mass/volume] in Urine by Test strip NEG NORMAL: Negat [facility] Nitrite [Presence] in Urine by Test strip NEG NORMAL: Negative [facility] BLOOD NEG NORMAL: Negative [facility] Leukocyte esterase [Presence] in Urine by Test strip NEG LISANDRA L: Negative [facility] Urobilinogen [Mass/volume] in Urine by Test strip 1 less kenna n 1.0 mg/dL [facility] MICROSCOPIC Not Indicate [facility] H ospital ID Date Data Source [id number] 10/30/2019 10:27:[address] [facility] Name Value Range Interpretation Code Description Data [place] rce(s) Supporting Document(s) BG FASTING 132 mg/dL 70-100 H [facility] y Health TSH 0.526 microintl units/mL 0.358-3.740 [facility] ID Date Data Source [id number] 10/30/2019 10:27:[address] [facility] Name Value Range Interpretation Code Description Data [place] rce(s) Supporting Document(s) HCT 37.6 % 36.0-47.[address] [facility] HGB 11.8 g/dL 12.0-15.[address] [facility] MCH 31.4 G/DL pg 32.0-36.5 L [facility] MCHC 29.9 PG % 27.0-33.[address] [facility] PLATELETS 209 10 10*3/mm3 150-450 N [facility] Family [facility] RBC 3.94 10 10*6/mm3 4.00-5.[address] [facility] RDW 12.6 % 11.5-14.[address] [facility] WBC TOTAL 4.5 4.0-10.[address] [facility] ID Date Data Source [id number] 10/13/2019 03:25:[address] [facility] Name Value Range Interpretation Code Description Data [place] rce(s) Supporting Document(s) HCT 40.7 % 36.0-47.[address] [facility] HGB 13.3 g/dL 12.0-15.[address] [facility] MCH 32.7 G/DL pg 32.0-36.5 [facility] MCHC 30.4 PG % 27.0-33.[address] [facility] PLATELETS 288 10 10*3/mm3 150-[address] [facility] RBC 4.37 10 10*6/mm3 4.00-5.[address] [facility] RDW 12.4 % 11.5-14.[address] [facility] WBC TOTAL 8.7 4.0-10.[address] [facility] ID Date Data Source [id number] 10/09/2019 02:09:00 AM EDT [facility] 1 OrderSheet [facility] Emergency Department [address] [place] [address] Phone #: ext- [phone] 10/09/2019 02:08 Patient: [...] rce(s) Supporting Document(s) ID Date Data Source [id number] 10/09/2019 02:09:00 AM EDT [facility] 1 Medication Reconciliation Report [facility] Emergency Department [address] [place] [address] Phone #: ext [phone] 10/09/2019 02:08 Patient: BRUNA LEE Sex: F [...] Name Value Range Interpretation Code [facility] Document(s) ID Date Data Source [id number] 10/09/2019 02:09:00 AM EDT [facility] 1 Medication Administration Record [facility] Emergency Department [address] [place] [address] Phone #: ext [phone] 10/09/2019 02:08 Patient: BRUNA LEE Sex: F : 1985 Age: 34yWeight: 81.1 kgHeight/Length: 60 inBMI: 34.9ALLERGIES: Penicillins, Sulfa Antibiotics Date/Time Medication Administered Medication OrderedGiven IBUPROFEN [PO] Ibuprofen 800 mg PO X1 dose: 74054:39 10/09/2019 Dose: 800 mg Tablets PO mg (NOW x1)Meme Maldonado R.N. Name Value Range Interpretation Code Description Data [place] e(s) Supporting Document(s) ID Date Data Source [id number] 10/09/2019 02:09:00 AM EDT [facility] 1 General Instructions [facility] Emergency Department [address] [place] [address] Phone #: ext- [phone] 10/09/2019 02:08 Patient: [...] INFORMATIONViral Pharyngitis (Sore Throat) 2 General Instructions [facility] Emergency Department [address] [place] [address] Phone #: ext- [phone] 10/09/2019 02:08 Patient: [...] glass of warm water. 3 General Instructions [facility] Emergency Department [address] [place] [address] Phone #: ext- [phone] 10/09/2019 02:08 Patient: [...] breathing or noisy breathing 4 General Instructions [facility] Emergency Department [address] [place] [address] Phone #: ext- [phone] 10/09/2019 02:08 Patient: BRUNA LEE Sex: F : 1985 Age: 34y Muffled voice New rash Other symptoms are getting worse [id number] [employer]. [address] [place], [place] [id number]. All rights reserved. This information is not intended as asubstitute for professional medical care. Always follow your healthcare professional's instructions. You have been given the following additional information: Pharyngitis, Viral(Electronically signed by Evonne Anne M.D. 10/09/2019 03:51) Name Value Range Interpretation Code Description Data [place] rce(s) Supporting Document(s) ID Date Data Source [id number] 10/09/2019 02:09:00 AM EDT [facility] 1 Clinical Report - Nurses [facility] Emergency Department [address] [place] [address] Phone #: ext- [phone] 10/09/2019 02:08 Patient: BRUNA LEE Sex: F : 1985 Age: 34yTRIAGEHistorian: EMS and patient.Triage time: 02:08 10/09/2019.Chief Complaint: SORE THROAT.This started just prior to arrival. 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 (arthritis kind).EMS Treatment SENIOR SOFTWARE PROJECT MANAGER:See EMS report.SEPSIS SCREEN: SIRS Screen: heart rate greater than 90. Sepsis Screen negative. No suspected orconfirmed signs of infection present. --02:14 10/09/19 Meme Maldonado R.N.02:11 10/09/19. BP: 130/86. MAP: 100. HR: 105. RR: 18. O2 saturation: 100%. Temp: 98.5 F. Pain levelnow: 10. --02:14 10/09/19 Meme Maldonado R.N.Treatment SENIOR SOFTWARE PROJECT MANAGER:(Seen at [facility] for this issue within the [...] Maldonado R.N.AllergiesPenicillins.(hives) 2 Clinical Report - Nurses [facility] Emergency Department [address] [place] [address] Phone #: ext- [phone] 10/09/2019 02:08 Patient: [...] Dental decay. 3 Clinical Report - Nurses [facility] Emergency Department [address] [place] [address] Phone #: ext- [phone] 10/09/2019 02:08 Patient: BRUNA LEE Sex: F [...] Patient verbalized understanding. Written instructions provided in Nigerian. The patient was discharged by the physician. [...] rce(s) Supporting Document(s) ID Date Data Source [id number] 10/09/2019 02:09:00 AM EDT [facility] 1 Clinical Report - Physicians/Mid Levels [facility] Emergency Department [address] [place] [address] Phone #: ext- [phone] 10/09/2019 02:08 Patient: BRUNA LEE Sex: F [...] (per EMS, pt is well known to [facility] ER for multiple ER visits for multiple somatic and psychiatric complaints; tonight, she complains of sore throat, hoarse voice, bugs on her skin, etc.; pt has therapist in [place]). Similar symptoms previously. Patient has had similar [...] Medications: 2 Clinical Report - Physicians/Mid Levels [facility] Emergency Department [address] [place] [address] Phone #: ext- [phone] 10/09/2019 02:08 Patient: BRUNA LEE Sex: F [...] PROCEDURAL CONTROL VALID ){ KIT LOT # [id number] ){ KIT EXP DATE 9090329 )The 3 Clinical Report - Physicians/Mid Levels [facility] Emergency Department [address] [place] [address] Phone #: ext- [phone] 10/09/2019 02:08 Patient: [...] was requested by: Evonne Anne Reference #: [id number] Others' Prescriptions Patient Name: Bruna LeeBirth Date: 1985 Address: [address] [place], [place] [address]Sex: Female Rx Written Rx Dispensed Drug Quantity Days Supply Prescriber Name Payment Method Dispenser 09/30/2019 09/30/2019 buprenorphine-naloxone 8-2 mg sl film 56 28 Jose J Mao MD Medicaid [facility] 08/28/2019 08/28/2019 [...] 56 28 Moehs, Jose J Bundy MD [facility] 05/01/2019 05/01/2019 buprenorphine-naloxone 8-2 [...] #15 4 Clinical Report - Physicians/Mid Levels [facility] Emergency Department [address] [place] [address] Phone #: rsb- [phone] 10/09/2019 02:08 Patient: BRUNA LEE Sex: F [...] unknown*. 5 Clinical Report - Physicians/Mid Levels [facility] Emergency Department [address] [place] [address] Phone #: ext- [phone] 10/09/2019 02:08 Patient: [...] Value Range Interpretation Code Description Data [facility] rce(s) Supporting Document(s) ID Date Data Source [id number] 10/09/2019 03:02:00 AM EDT [facility] Name Value Range Interpretation Code Description Data [facility] rce(s) Supporting Document(s) RAPID STREP NEGATIVE NORMAL: NEGATIVE [facility] RAPID STREP REENTER NEGATIVE NORMAL: NEGATIVE [facility] { PROCEDURAL CONTROL VALID ){ KIT LOT # [id number] ){ KIT EXP DATE 205111 )The Strep A 2 assay utilizes isothermal [...] basis for treatment. ID Date Data Source [id number] 09/22/2019 02:34:[address] [facility] Measurements & CalculationsHeight: 61 inches (5 [...] (ER) or urgent care clinic? Yes - [facility] Have you seen another healthcare provider? Yes - [facility] Have you seen a dentist? NoIntake [...] and this is different. [facility] for her mental health issues (schizophrenia) and feels that this is going well.HPI performed by: Francesco Ritchie MD, September 22, 2019 2:52 PMTransitions of Care InboundProblem ReviewProblem List was reviewed and/or updated during this visit.Medication Reconciliation & ReviewMedication List was reviewed and/or updated during this visit, including review of any ukzb-ail-zyztcqd medications, herbal therapies, and/or supplements.Allergy ReviewAllergy List [...] Plan Problems:Added: Hematemesis - cause unknown (ICD-578.0) (IWX68-A90.0) Assessment: Instructions: Currently asymptomatic but worrisome enough to warrant further workup.Avoid NSAIDs and refer to GI.Return to ER if this occurs again.Assessed:Peripheral neuropathy (ICD-356.9) (NHH76-Z93.9) Assessment: Instructions: I am not sure where [...] (Critical)Orders:Adult - Ofc Vst, EST, Level III [CPT-73260] Gastroenterology Consult [CPT-73645] Medications:GABAPENTIN 400 MG ORAL CAPSULE (GABAPENTIN) take one tablet by mouth three times daily as needed #90[Capsule] x 0 Route:ORAL Entered and Authorized by: Francesco Ritchie MD Method used: Electronically to [facility] (retail) [address] [place] [address] Note to Pharmacy: Route: ORAL; Indications: PERIPHERAL NEUROPATHY;BILATERAL CARPAL TUNNEL SYNDROME RxID: [id number] 1000 MG ORAL TABLET (LEVETIRACETAM) 1 pill po bid #60[Tablet] x 0 Route:ORAL Entered and Authorized by: Francesco Ritchie MD Method used: Electronically to [facility] (retail) [address] [place] [address] Note to Pharmacy: Route: ORAL; RxID: [id number] SUCCINATE 50 MG ORAL TABLET (SUMATRIPTAN SUCCINATE) take one tab po at the onset of headache. may repeat dose x one if no releif after two hours. #15[Tablet] x 0 Entered and Authorized by: Francesco Ritchie MD Method used: Electronically to [facility] (retail) [address] [place], [place] [address] RxID: [id number] OMEPRAZOLE 20 MG ORAL TABLET DELAYED RELEASE (OMEPRAZOLE) One tablet by mouth every day #30[Tablet] x 2 Route:ORAL Entered and Authorized by: Francesco Ritchie MD Method used: Electronically to [facility] (retail) [address] [place] [address] Note to Pharmacy: Route: ORAL; RxID: [id number] DOXYCYCLINE MONOHYDRATE 100 MG ORAL TABLET (DOXYCYCLINE MONOHYDRATE) take one tablet by mouth twice daily x 5 days #10[Tablet] x 0 Route:ORAL Entered by: Demetria Elliott MA Authorized by: Mavis DIEGO Method used: Electronically to [facility] (retail) [address] [place] [address] RxID: [id number] signed by Francesco Ritchie MD on 09/22/2019 at 5:42 PM Name Value Range Interpretation Code Description Data Lemira rce(s) Supporting Document(s) ID Date Data Source [id number] 09/10/2019 10:45:00 PM EDT [facility] Name Value Range Interpretation Code Description Data Elmira rce(s) Supporting Document(s) BG FASTING 96 mg/dL 70-100 N [facility] y Health ID Date Data Source [id number] 09/10/2019 10:45:[address] [facility] Name Value Range Interpretation Code Description Data Elmira rce(s) Supporting Document(s) HCT 37.4 % 36.0-47.0 [facility] HGB 12.1 g/dL 12.0-15.[address] [facility] MCH 32.4 G/DL pg 32.0-36.5 [facility] MCHC 30.2 PG % 27.0-33.0 [facility] PLATELETS 244 10 10*3/mm3 150-[address] [facility] RBC 4.01 10 10*6/mm3 4.00-5.40 [facility] RDW 12.8 % 11.5-14.5 [facility] WBC TOTAL 4.9 4.0-10.0 [facility] ID Date Data Source [id number] 05/20/2019 11:42:[address] [facility] Measurements & CalculationsHeight: 61 inches (5 [...] you seen another healthcare provider? Yes - [place] [facility] Have you seen a dentist? NoRate [...] Dr Mao. HPI performed by: Mavis Batista [facility], May 20, 2019 12:08 PMTransitions of Care InboundProblem ReviewProblem List was reviewed and/or updated during this visit.Medication Reconciliation & ReviewMedication List was reviewed and/or updated during this visit, including review of any qyzs-pzj-oeltgvu medications, herbal therapies, and/or supplements.Allergy ReviewAllergy List [...] Problems:Added: Phlebitis and thrombophlebitis of unspecified site (MRU81-B88.9): right AC and right tibia Assessment: Instructions: May continue warm compresses 3-4 times daily as needed. Please try to keep extremities elevated. We have sent a prescription to your pharmacy today. Please take medication as prescribed. Please report any major side effects.Phlebitis and thrombophlebitis of unspecified site (EWW53-H15.9): right AC and right tibia Assessment: right foot and right forearmAssessed:Tobacco use (ICD-305.1) (HJN03-L88.0) Assessment: Instructions: Please continue to try to quit smoking.Health Screening (ICD-V70.0) (YHV05-D22.9) Assessment: Instructions: Fasting labs ordered for you today. Please return prior to your next visit to have labs drawn. Please fast for 8-10 hours prior.Substance abuse (ICD-305.90) (NKA07-G92.10) Assessment: Instructions: Please try to avoid the [...] (Critical)BACTRIM (Critical)* SULFA ANTIBIOTICS (Critical)Orders:COMP METABOLIC PANEL [CPT-80961] CBC W/DIFF [CPT- 06424] HgBA1c [CPT-04920] LIPID PANEL [CPT-95046] TSH [CPT-04987] T-4 free [CPT- 07048] Vitamin D 250H Unspecified [CPT-52267] URINALYSIS [CPT-07294] VITAMIN B- 12 [CPT-39528] Folate (Folic Acid Serum) [CPT-37185] IRON [CPT-38943] Adult - Ofc Vst, EST, Level III [CPT-99003] Follow-Up Return to clinic: 2-3 weeks for follow up Additional Follow-Up: If symptoms worsen, please return to clinic or the ERClinical Visit Summary CompletedMedications:DOXYCYCLINE MONOHYDRATE 100 MG ORAL TABLET (DOXYCYCLINE MONOHYDRATE) take one tablet by mouth twice daily x 5 days #10[Tablet] x 0 Route:ORAL Entered and Authorized by: Mavis DIEGO Method used: Electronically to [facility] (retail) [address] [place] [address] Note to Pharmacy: Route: ORAL; Indications: PHLEBITIS AND THROMBOPHLEBITIS OF UNSPECIFIED SITE RxID: [id number] signed by Mavis DIEGO on 05/24/2019 at 11:37 PM ____ Name Value Range Interpretation Code Description Data Elmira rce(s) Supporting Document(s) Procedure Social History Code Duration Value Status Description Data Source(s ) Smoking 03/30/2020 12:00:00 AM EST Current Smoker completed Curre nt Smoker eCW1 ([facility]) Smoking 03/30/2020 12:00:00 AM EST Current Smoker completed Curre nt Smoker eCW1 ([facility]) Smoking 03/30/2020 12:00:00 AM EST Current Smoker completed Curre nt Smoker eCW1 ([facility]) Smoking 03/30/2020 12:00:00 AM EST Current Smoker completed Curre nt Smoker eCW1 ([facility]) Smoking 03/30/2020 12:00:00 AM EST Current Smoker completed Curre nt Smoker eCW1 ([facility]) Smoking 03/30/2020 12:00:00 AM EST Current Smoker completed Curre nt Smoker eCW1 ([facility]) Smoking 03/30/2020 12:00:00 AM EST Current Smoker completed Curre nt Smoker eCW1 ([facility]) Smoking 03/30/2020 12:00:00 AM EST Current Smoker [...] 119 /min eCW1 ([facility]) Body mass index (BMI) [Ratio] 35.74 kg/m2 35.74 kg/m2 eCW1 ([facility]) Body weight 183.0 [lb_av] 183.0 [lb_av] eCW1 ([facility]) Body height 60.0 [in_i] 60.0 [in_i] eCW1 ([facility]) Oxygen saturation in Arterial blood by Pulse oximetry 99 % 99 % eCW1 ([facility]) Respiratory rate 18 /min 18 /min eCW1 ([facility]) Heart rate 93 /min 93 /min eCW1 ([facility]) Body mass index (BMI) [Ratio] 35.27 kg/m2 35.27 kg/m2 eCW1 ([facility]) Body weight 180.6 [lb_av] 180.6 [lb_av] eCW1 ([facility]) Body height 60 [in_i] 60 [in_i] eCW1 ([facility]) Oxygen saturation in Arterial blood by Pulse oximetry 97 % 97 % eCW1 ([facility]) Respiratory rate 18 /min 18 /min eCW1 ([facility]) Heart rate 89 /min 89 /min eCW1 ([facility]) Body mass index (BMI) [Ratio] 36.48 kg/m2 36.48 kg/m2 eCW1 ([facility]) Body weight 186.8 [lb_av] 186.8 [lb_av] eCW1 ([facility]) Body height 60 [in_i] 60 [in_i] eCW1 ([facility]) Body height 60 [in_i] 60 [in_i] eCW1 ([facility]) Oxygen saturation in Arterial blood by Pulse oximetry 98 % 98 % eCW1 ([facility]) Respiratory rate 18 /min 18 /min eCW1 ([facility]) Heart rate 86 /min 86 /min eCW1 ([facility]) Body temperature 98.0 [degF] 98.0 [degF] eCW1 [...] 100 /min eCW1 ([facility]) Body temperature 98.7 [degF] 98.7 [degF] eCW1 ( [facility]) Body mass index (BMI) [Ratio] 30.70 kg/m2 30.70 kg/m2 eCW1 ([facility]) Body weight 157.2 [lb_av] 157.2 [lb_av] eCW1 ([facility]) Body height 60 [in_i] 60 [in_i] eCW1 ([facility]) ID Date Data Source [id number] 12/26/2019 01:56:00 PM EDT [facility] Name Value Range Interpretation Code Description Data Source(s) WEIGHT 72.3 kilos 72.3 kilos [facility] HEIGHT 152.4 centimeters 152.4 centimeters [facility] WEIGHT 75 kilos 75 kilos [facility] HEIGHT 152.4 centimeters 152.4 centimeters [facility] ID Date Data Source [id number] 12/10/2019 06:07:00 AM EDT [facility] Name Value Range Interpretation Code Description Data Source(s) WEIGHT 68 kilos 68 kilos [facility] HEIGHT 152.4 centimeters 152.4 centimeters [facility] WEIGHT 68.4 kilos 68.4 kilos [facility] HEIGHT 152.4 centimeters 152.4 centimeters [facility] ID Date Data Source [id number] 12/08/2019 01:43:00 PM EDT [facility] Name Value Range Interpretation Code Description Data Source(s) WEIGHT 75 kilos 75 kilos [facility] HEIGHT 152.4 centimeters 152.4 centimeters [facility] ID Date Data Source [id number] 12/08/2019 01:43:00 PM EDT [facility] Name Value Range Interpretation Code Description Data Source([facility]) [facility] 160.02 centimeters 160.02 centimeter s [facility] Patient Treatment Plan of Care Planned Activity Planned Date Details Description Data Source (s) Doxepin Hydrochloride 25 MG Oral Capsule 03/09/2020 12:00:00 AM EST eCW1 ([facility]) Doxepin Hydrochloride 25 MG Oral Capsule 03/09/2020 12:00:00 AM EST eCW1 ([facility]) Doxepin Hydrochloride 25 MG Oral Capsule 03/09/2020 12:00:00 AM EST eCW1 ([facility]) Clonidine Hydrochloride [...]
[2020-04-21 05:12] LABS: HEMATOCRIT 35.1 % (36.0-47.0); HEMOGLOBIN 11.5 g/dl (12.0-15.5); MEAN CORPUSCULAR HEMOGLOBIN 29.3 pg (27.0-33.0); MEAN CORPUSCULAR HGB CONC 32.8 g/dl (32.0-36.5); MEAN CORPUSCULAR VOLUME 89.3 fl (80.0-96.0); PLATELET COUNT, AUTOMATED 304 10^3/uL (150-450); RED BLOOD COUNT 3.93 10^6/uL (4.00-5.40); WHITE BLOOD COUNT 7.2 10^3/uL (4.0-10.0)
[2020-04-21 05:47] LABS: HCG, SERUM QUALITATIVE NEGATIVE (NEGATIVE)
[2020-04-21 06:04] LABS: ACETAMINOPHEN LEVEL < 2.0 UG/ML (10.0-30.0); ALBUMIN 3.5 GM/DL (3.2-5.2); ALT/SGPT 46 U/L (12-78); BILIRUBIN,DIRECT 0.2 MG/DL (0.0-0.2); BILIRUBIN,TOTAL 0.5 MG/DL (0.2-1.0); BLOOD UREA NITROGEN 11 MG/DL (7-18); CALCIUM LEVEL 8.9 MG/DL (8.5-10.1); CARBON DIOXIDE LEVEL 27 MEQ/L (21-32); CHLORIDE LEVEL 102 MEQ/L (98-107); CPK CREATINE PHOSPHOKINASE 975 U/L (26-192); CREATININE FOR GFR 0.55 MG/DL (0.55-1.30); ETHYL ALCOHOL (ETHANOL) < 0.003 % (0.000-0.010); GLOMERULAR FILTRATION RATE > 60.0 (>60); GLUCOSE, FASTING 91 MG/DL (70-100); POTASSIUM SERUM 4.2 MEQ/L (3.5-5.1); SALICYLATE LEVEL 3.3 MG/DL (5.0-30.0); SODIUM LEVEL 138 MEQ/L (136-145); THYROID STIMULATING HORMONE 0.321 uIU/ML (0.358-3.740); TOTAL PROTEIN 6.9 GM/DL (6.4-8.2)
--- NOTE | 2020-04-21 06:51 | REPVR ---
PROCEDURE INFORMATION: Exam: CT Head Without Contrast Exam date and time: 04/21/2020 6:17 AM Age: 34 years old Clinical indication: Pain; Headache not specified; Additional info: Trauma TECHNIQUE: Imaging protocol: Computed tomography of the head without contrast. Radiation optimization: All CT scans at this facility use at least one of these dose optimization techniques: automated exposure control; mA and/or kV adjustment per patient size (includes targeted exams where dose is matched to clinical indication); or iterative reconstruction. COMPARISON: CT Head without contrast 04/01/2020 9:44 AM FINDINGS: Brain: Normal. No hemorrhage. Unremarkable white matter. No mass effect. Cerebral ventricles: No ventriculomegaly. Bones/joints: Unremarkable. No acute fracture. Paranasal sinuses: Visualized sinuses are unremarkable. No fluid levels. Mastoid air cells: Visualized mastoid air cells are well aerated. Soft tissues: Unremarkable. IMPRESSION: No CT evidence of acute intracranial hemorrhage, mass effect or midline shift. Depending on patient's clinical history and symptoms, further evaluation with MRI may be considered. Electronically signed by: Reji Austin On 04/21/2020 06:51:01 AM
[2020-04-21 12:18] LABS: AMPHETAMINES LEVEL URINE POSITIVE (NEGATIVE); BARBITURATES URINE NEGATIVE (NEGATIVE); BENZODIAZEPINES URINE POSITIVE (NEGATIVE); CANNABINOIDS URINE POSITIVE (NEGATIVE); COCAINE METABOLITE URINE NEGATIVE (NEGATIVE); METHADONE URINE POSITIVE (NEGATIVE); OPIATES URINE POSITIVE (NEGATIVE); PHENCYCLIDINE URINE NEGATIVE (NEGATIVE)
[2020-04-22] MEDS ORDERED: risperiDONE 3 MG TAB PO SCH (09:00)
[2020-04-22] MEDS ORDERED: OMEPRAZOLE 20 MG CAP PO SCH (09:00)
[2020-04-22] MEDS ORDERED: LORATADINE 10 MG TAB PO SCH (09:00)
[2020-04-22] MEDS ORDERED: CitaloPRAM (CeleXA) 20 MG TAB PO SCH (09:00)
[2020-04-22] MEDS ORDERED: BUPRENORPHINE/NALOXONE 8-2MG SUBLINGUAL TABLET(SUBOXONE) SL SCH (09:00)
[2020-04-22] MEDS ORDERED: levETIRAcetam 250MG TABLET (KEPPRA) PO SCH (09:00)
[2020-04-22] MEDS: GABAPENTIN 300 MG CAP PO SCH ×3 (09:13→21:22)
[2020-04-22] MEDS ORDERED: cloNIDine 0.2 MG TAB PO SCH (09:20)
--- NOTE | 2020-04-22 09:35 | ECGEPIP ---
[facility] - ED Test Date: 2020-04-21 Pat Name: MELANY LEE Department: Room: - Gender: Female [employer]: RA : 1985 Requested By: Seth Limon Order Number: [id number] Reading MD: Shirley Spears Measurements Intervals [place] Rate: 77 P: 62 ID: [id number] QRS: 58 QRSD: 84 T: 18 QT: 400 QTc: 452 Interpretive Statements Normal sinus rhythm decreased rate 04/11/20 Electronically Signed on 04-22-2020 9:35:29 EST by Shirley Spears
[2020-04-22] MEDS ORDERED: cloNIDine 0.2 MG TAB PO PRN (09:46)
[2020-04-22] MEDS ORDERED: GABA-845 PO (09:56)
[2020-04-22] MEDS ORDERED: SUBO8MIS SL (09:56)
[2020-04-22] MEDS ORDERED: SUMAtriptan SUCCINATE 25 MG TAB PO PRN (12:10)
[2020-04-22] MEDS ORDERED: MAALOX 30 ML SUSP *UDC PO PRN (12:10)
[2020-04-22] MEDS ORDERED: MOM 30ML SUSPENSION UDC PO PRN (12:10)
--- OUTSIDE RECORDS SUMMARY | 2020-04-22 13:18 | CCD ---
Author Author [facility] Organization 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 12 Active confirmed 17964320 Problem Methamphetamine abuse F15.10 Active confirmed 182599378 Problem Opioid abuse F11.10 Active confirmed 7896947 Problem Opioid use disorder, severe, in sustained remission, on maintenance therapy F11.21 Active confirmed 962526256 Problem Cannabis abuse F12.10 Active confirmed 58130 009 Problem Gastroesophageal reflux disease, esophagitis pre sence not specified K21.9 Active confirmed 121590355 Problem BMI 30.0-30.9,adult Z68.30 Active confirmed 883235874 Problem Obesity (BMI 30.0-34.9) E66.9 Active confirmed 294268297249797 Problem Tongue sore K14.6 Active confirmed 51158142 Problem Binge eating disorder F50.81 Active confirmed 039018363 Problem Polysubstance abuse F19.10 Active confirmed 724531422 Problem Schizoaffective disorder F25.9 Active confirmed 06148272 Problem Tobacco dependence F17.200 Active confirmed 17295493 Problem Oropharyngeal dysphagia R13.12 Active confirmed 50921301 Problem Carpal tunnel syndrome, bilateral G56.03 Active confirmed 31240312272844488 Problem History of drug abuse F19.11 Active confirmed 016087598 ALLERGIES Allergen (clinical drug ingredient) Drug/Non Drug Allergy do cumented on EMR Reaction Allergy Type Onset Date Status haloperidol Haldol([facility] Code:[address]-61) Unknown Drug Allergy Active olanzapine Zyprexa([facility] Code:[address]-59) Unknown Drug Allergy Active amoxicillin Amoxicillin([facility] Code:[address]-28) Unknown Drug Aller gy Active penicillin G Penicillin G Sodium([facility] Code:[address]-57) Unknown D rug Allergy Active sulfamethoxazole / trimethoprim Bactrim([facility] Code:[address]-62) Unknown Drug Allergy Active Sulfacet-R Unknown Drug Allergy Active ENCOUNTERS from 1985 to 2020-04-20 Encounter Location Date Provider Diagnosis [address] [address] Mar, Shira Ford IMMUNIZATIONS No Information SOCIAL [...] Notes Start Da te End Date Status Sucralfate 1 GM 1 tablet on an empty stomach Orally Twice a day for 30 day(s) Active Keppra 1000 MG 1 tablet Orally Twice a day for 30 days Active Loratadine 10 MG 1 tablet Orally Once a day for 30 day(s) Active Amitriptyline HCl 50 MG 1 tablet at bedtime Orally qhs for 30 days Active Sumatriptan Succinate 1 daily orally daily and PRN for Migraine. for 14 days Active Gabapentin 400 MG 1 capsule Orally three times a day for 30 days Active Buprenorphine HCl 8 MG 2 strips under the tongue an d allow to dissolve Sublingual Once a day Active Celexa 20 MG 1 tablet Orally Once a day for 30 days Active Doxepin HCl 25 MG 1 capsule at bedtime Orally (pt is decreasing amitript to 50mg) Once a day for 15 days Feb, Act merari Prilosec OTC 20 MG 1 tablet 30 minutes before m orning meal Orally Once a day for 90 day(s) Active Diphenhydramine 1 tab Oral twice a day fro EPS Active Clonidine HCl 0.2 MG 1 tablet Orally tid prn amxiety for 15 days Nov, Active Risperdal 3 MG 1 tablet Orally twice a day for 15 days June, Active PROCEDURES No Information RESULTS No Results [...] OF TREATMENT Next Appt Details Provider Name:Aliyah Traceymakaylarajeev, 04-21 08:40:00 AM, [address] [place] [address], [phone], Insurance Providers Payer Name Payer Address Payer Phone Insured Name Patient Relati onship to Insured Coverage Start Date Coverage End Date [employer] [address] [facility] [id number] Come,Melissa self
--- OUTSIDE RECORDS SUMMARY | 2020-04-22 13:20 | CCD ---
Author Author [facility] Organization [facility] Address Unknown Phone Unavailable Care Team Providers Care Viscera Washer Name Role Phone Kori FLORES Unavailable Unavailable [...] Jeremie HOGAN MD Unavailable Unavailable JESICA, @ [facility] Unavailable Unavailable BEHZAD HOGAN MD Unavailable Unavailable Ching, Reginah W Kassidy ARTIFICIAL INTELLIGENCE SPECIALIST-C Unavailable Unavailabl e Ching, Reginah W Kassidy ARTIFICIAL INTELLIGENCE SPECIALIST-C Unavailable Unavailabl e Ching, Reginah W Kassidy ARTIFICIAL INTELLIGENCE SPECIALIST-C Unavailable Unavailabl e Ching, Reginah W Kassidy ARTIFICIAL INTELLIGENCE SPECIALIST-C Unavailable Unavailabl e Ching, Reginah W Kassidy ARTIFICIAL INTELLIGENCE SPECIALIST-C Unavailable Unavailabl e Ching, Reginah W Kassidy ARTIFICIAL INTELLIGENCE SPECIALIST-C Unavailable Unavailabl e Ching, Reginah W Kassidy ARTIFICIAL INTELLIGENCE SPECIALIST-C Unavailable Unavailabl e Ching, Reginah W Kassidy ARTIFICIAL INTELLIGENCE SPECIALIST-C Unavailable Unavailabl e Ching, Reginah W Kassidy ARTIFICIAL INTELLIGENCE SPECIALIST-C Unavailable Unavailabl e Ching, Reginah W Kassidy ARTIFICIAL INTELLIGENCE SPECIALIST-C Unavailable Unavailabl e Ching, Reginah W Kassidy ARTIFICIAL INTELLIGENCE SPECIALIST-C Unavailable Unavailabl e Ching, Reginah W Kassidy ARTIFICIAL INTELLIGENCE SPECIALIST-C Unavailable Unavailabl e Ching, Reginah W Kassidy ARTIFICIAL INTELLIGENCE SPECIALIST-C Unavailable Unavailabl e Ching, Reginah W Kassidy ARTIFICIAL INTELLIGENCE SPECIALIST-C Unavailable Unavailabl e Ching, Reginah W Kassidy ARTIFICIAL INTELLIGENCE SPECIALIST-C Unavailable Unavailabl e Ching, Reginah W Kassidy ARTIFICIAL INTELLIGENCE SPECIALIST-C Unavailable Unavailabl e Ching, Elijah Yi ARTIFICIAL INTELLIGENCE SPECIALIST-C Unavailable Unavailabl e Ching, Elijah Yi ARTIFICIAL INTELLIGENCE SPECIALIST-C Unavailable Unavailabl e Ching, Elijah Yi ARTIFICIAL INTELLIGENCE SPECIALIST-C Unavailable Unavailabl e Ching, Elijah Yi ARTIFICIAL INTELLIGENCE SPECIALIST-C Unavailable Unavailabl e Ching, Elijah Yi ARTIFICIAL INTELLIGENCE SPECIALIST-C Unavailable Unavailabl e Ching, Elijah Yi ARTIFICIAL INTELLIGENCE SPECIALIST-C Unavailable Unavailabl e Ching, Elijah Yi ARTIFICIAL INTELLIGENCE SPECIALIST-C Unavailable Unavailabl e Ching, Elijah Yi ARTIFICIAL INTELLIGENCE SPECIALIST-C Unavailable Unavailabl e Ching, Elijah Yi ARTIFICIAL INTELLIGENCE SPECIALIST-C Unavailable Unavailabl e Ching, Elijah Yi ARTIFICIAL INTELLIGENCE SPECIALIST-C Unavailable Unavailabl e Ching, Eljiah Yi ARTIFICIAL INTELLIGENCE SPECIALIST-C Unavailable Unavailabl e Ching, Elijah Yi ARTIFICIAL INTELLIGENCE SPECIALIST-C Unavailable Unavailabl e Ching, Elijah Yi ARTIFICIAL INTELLIGENCE SPECIALIST-C Unavailable Unavailabl e Ching, Elijah Yi ARTIFICIAL INTELLIGENCE SPECIALIST-C Unavailable Unavailabl e Ching, Elijah Yi ARTIFICIAL INTELLIGENCE SPECIALIST-C Unavailable Unavailabl e Ching, Elijah Yi ARTIFICIAL INTELLIGENCE SPECIALIST-C Unavailable Unavailabl e Lino Marie MD [...] Frank, Lino Kahn MD Unavailable Unavailable Lino aMrie MD Unavailable Unavailable Frank, Lino Kahn MD [...] Unavailable Unavailable TURRIN, EVONNE Unavailable Unavailable TURRIN, EVNONE Unavailable Unavailable TURRIN, EVONNE Unavailable Unavailable HUMBERTO, [...] BROWN, L JANE Unavailable Unavailable DESJARLAIS, KAROLYN CONTINUOUS TOWEL ROLLER Unavailable Unavailable DESJARLAIS, KAROLYN CONTINUOUS TOWEL ROLLER Unavailable Unavailable DESJARLAIS, KAROLYN CONTINUOUS TOWEL ROLLER Unavailable Unavailable DESJARLAIS, KAROLYN CONTINUOUS TOWEL ROLLER Unavailable Unavailable DESJARLAIS, KAROLYN CONTINUOUS TOWEL ROLLER Unavailable Unavailable DESJARLAIS, KAROLYN CONTINUOUS TOWEL ROLLER Unavailable Unavailable DESJARLAIS, KAROLYN CONTINUOUS TOWEL ROLLER Unavailable Unavailable DESJARLAIS, KAROLYN CONTINUOUS TOWEL ROLLER Unavailable Unavailable DESJARLAIS, KAROLYN CONTINUOUS TOWEL ROLLER Unavailable Unavailable MAHESH RECINOS Unavailable Unavailable Lester, Mavis ARTIFICIAL INTELLIGENCE SPECIALIST ARTIFICIAL INTELLIGENCE SPECIALIST Unavailable Unavailable Lester, A Mavis ARTIFICIAL INTELLIGENCE SPECIALIST Unavailable Unavailable Lester, A Mavis ARTIFICIAL INTELLIGENCE SPECIALIST Unavailable Unavailable Lester, A Mavis ARTIFICIAL INTELLIGENCE SPECIALIST Unavailable Unavailable Lester, A Mavis ARTIFICIAL INTELLIGENCE SPECIALIST Unavailable Unavailable Lester, A Mavis ARTIFICIAL INTELLIGENCE SPECIALIST Unavailable Unavailable Lester, A Mavis ARTIFICIAL INTELLIGENCE SPECIALIST Unavailable Unavailable Lester, A Mavis ARTIFICIAL INTELLIGENCE SPECIALIST Unavailable Unavailable Lester, A Mavis ARTIFICIAL INTELLIGENCE SPECIALIST Unavailable Unavailable Lester, A Mavis ARTIFICIAL INTELLIGENCE SPECIALIST Unavailable Unavailable Lester, A Mavis ARTIFICIAL INTELLIGENCE SPECIALIST Unavailable Unavailable Lester, A Mavis ARTIFICIAL INTELLIGENCE SPECIALIST Unavailable Unavailable Lester, A Mavis ARTIFICIAL INTELLIGENCE SPECIALIST Unavailable Unavailable Lester, A Mavis ARTIFICIAL INTELLIGENCE SPECIALIST Unavailable Unavailable Lester, A Mavis ARTIFICIAL INTELLIGENCE SPECIALIST Unavailable Unavailable Lester, A Mavis ARTIFICIAL INTELLIGENCE SPECIALIST Unavailable Unavailable Lester, A Mavis ARTIFICIAL INTELLIGENCE SPECIALIST Unavailable Unavailable Lester, A Mavis ARTIFICIAL INTELLIGENCE SPECIALIST Unavailable Unavailable Lester, A Mavis ARTIFICIAL INTELLIGENCE SPECIALIST Unavailable Unavailable Lester, A Mavis ARTIFICIAL INTELLIGENCE SPECIALIST Unavailable Unavailable Lester, A Mavis ARTIFICIAL INTELLIGENCE SPECIALIST Unavailable Unavailable Lester, A Mavis ARTIFICIAL INTELLIGENCE SPECIALIST Unavailable Unavailable Lester, A Mavis ARTIFICIAL INTELLIGENCE SPECIALIST Unavailable Unavailable Lester, A Mavis ARTIFICIAL INTELLIGENCE SPECIALIST Unavailable Unavailable Lester, A Mavis ARTIFICIAL INTELLIGENCE SPECIALIST Unavailable Unavailable Lester, A Mavis ARTIFICIAL INTELLIGENCE SPECIALIST Unavailable Unavailable Lester, A Mavis ARTIFICIAL INTELLIGENCE SPECIALIST Unavailable Unavailable Lester, A Mavis ARTIFICIAL INTELLIGENCE SPECIALIST Unavailable Unavailable Lester, A Mavis ARTIFICIAL INTELLIGENCE SPECIALIST Unavailable Unavailable BLUM, KATRIN Unavailable Unavailable Re-disclosure [...] is protected by Article 27-F of the [facility] Public Health law. If you continue you may have access to information: Regarding HIV / AIDS; Provided by facilities licensed or operated by the [facility] Office of Mental Health; or Provided by the [facility] Office for People With Developmental Disabilities. If such information is present, then the following [facility] mandated warning applies: This information [...] law may result in a fine or usp sentence or both. A general authorization for the release of medical or other information is NOT sufficient authorization for further disc losure. Allergies and Adverse Reactions Type Description Substance Reaction Status Data Source(s ) Drug allergy Drug allergy AMOXICLIIN SWELLING, HIVES R [facility] Drug allergy olanzapine olanzapine [facility] Drug allergy trimethoprim trimethoprim "BLISTERS IN MOUTH" Lead-[facility] Drug allergy sulfamethoxazole sulfamethoxazole "BLISTERS IN MOUTH" Lead-[facility] Drug allergy haloperidol haloperidol [facility] Drug allergy Sulfa (Sulfonamide Antibiotics) Sulfa (Sulfonami de Antibiotics) "BLISTERS IN MOUTH" Lead-[facility] Drug allergy Penicillins Penicillins SWELLING, HIVES SV R er [facility] Encounters Encounter Providers Location Date Indications Data Source(s ) Outpatient Attender: JANE EDWARD 04/20/2020 03:00:00 PM [facility] Outpatient [facility] 04/19/2020 12:00:00 AM EST eCW1 ([facility]) Outpatient [facility] 04/16/2020 12:00:00 AM EST eCW1 ([facility]) Outpatient Attender: FAHAD MOONEY 04/15/2020 09:45:0 0 AM [facility] Outpatient [facility] 04/12/2020 12:00:00 AM EST eCW1 ([facility]) Outpatient [facility] 04/08/2020 12:00:00 AM EST eCW1 ([facility]) Outpatient [facility] 04/08/2020 12:00:00 AM EST eCW1 ([facility]) Outpatient [facility] 04/08/2020 12:00:00 AM EST eCW1 ([facility]) Outpatient [facility] 04/05/2020 12:00:00 AM EST eCW1 ([facility]) Outpatient Attender: NATHAN PAUL PA-C 03/30/2020 10:30:00 AM [facility] Outpatient Attender: Shira Youngblood PA-C 03/30/2020 10:18 :00 AM [facility] Outpatient [facility] 03/30/2020 12:00:00 AM EST eCW1 ([facility]) Outpatient Attender: JANE EDWARD 03/23/2020 02:00:00 PM [facility] Outpatient Attender: JANE EDWARD 03/17/2020 10:30:00 AM E [facility] Outpatient Attender: JANE EDWARD 03/11/2020 04:00:00 PM E [facility] Preadmit Attender: FAHAD MOONEY 03/11/2020 06:30:0 0 AM [facility] Outpatient Attender: KAROLYN VAN NP 03/09/2020 03: 40:00 PM [facility] Outpatient [facility] 03/03/2020 12:00:00 AM EST eCW1 ([facility]) Outpatient Attender: Shira Fernándezrer: Shira Youngblood PA-C EMERGENCY ROOM-LAB 03/01/2020 04:49:00 PM EST - 03/01/2020 04:49:00 PM [facility] Outpatient Attender: Shira Youngblood PA-C 03/01/2020 03:45 :00 PM [facility] Outpatient [facility] 03/01/2020 12:00:00 AM EST eCW1 ([facility]) Outpatient [facility] 03/01/2020 12:00:00 AM EST eCW1 ([facility]) Outpatient Attender: KAROLYN VAN CONTINUOUS TOWEL ROLLER 02/18/2020 02: 40:00 PM [facility] Outpatient Attender: Kassidy SERRANO 02/18/2020 10:00:0 0 AM [facility] Outpatient [facility] 02/18/2020 12:00:00 AM EST eCW1 ([facility]) Outpatient [facility] 02/10/2020 12:00:00 AM EST eCW1 ([facility]) Outpatient [facility] 02/03/2020 12:00:00 AM EST eCW1 ([facility]) Outpatient [facility] 01/14/2020 12:00:00 AM EST eCW1 ([facility]) Outpatient [facility] 01/06/2020 12:00:00 AM EST eCW1 ([facility]) Outpatient Attender: JOHNATHON PATEL 01/02/2020 10:06:00 A [facility] Outpatient [facility] 01/02/2020 12:00:00 AM EST eCW1 ([facility]) Outpatient Attender: JANE EDWARD 01/01/2020 02:30:00 PM E [facility] Outpatient Attender: KAROLYN VAN NP 12/24/2019 11: 00:00 AM EDT [facility] Outpatient Attender: Shira Youngblood PA-C 12/24/2019 08:24 :00 AM EDT [facility] Outpatient [facility] 12/24/2019 12:00:00 AM EDT eCW1 ([facility]) Outpatient Attender: JANE EDWARD 12/23/2019 01:54:00 PM E [facility] Outpatient [facility] 12/23/2019 12:00:00 AM EDT eCW1 ([facility]) Outpatient Attender: Mavis DIEGO 12/12/2019 11:3 5:02 AM EDT [facility] Outpatient Attender: JANE EDWARD 12/11/2019 03:00:00 PM E [facility] Outpatient [facility] 12/09/2019 12:00:00 AM EDT eCW1 ([facility]) Outpatient Attender: Mavis PATEL 12/05/2019 01:2 6:01 PM EDT [facility] Inpatient Attender: PRERNA RIOS MDAdmitter: PRERNA Hopson MD ER-3RD 12/05/2019 10:08:00 AM EDT - 12/10/2019 01:07:00 PM EDT [facility] Patient discharged. Outpatient Attender: NATHAN PAUL PA-C 12/05/2019 09:03:00 AM EDT [facility] Admission cancelled. Disregard status an d admitted date. Inpatient Attender: BEHZAD HOGAN MD Attender: BEHZAD HOGAN MDAttender: DIOGENES BUENO MDAttender: DIOGENES BUENO MDAdmitter: BEHZAD HOGAN MD ER-ICU 12/04/2019 11:06:00 PM EDT - 12/05/2019 10:03:00 AM EDT [facility] Patient discharged. Emergency Attender: GINGER Salaser: Melissa oYungblood PA-C EMERGENCY ROOM-ER 12/04/2019 04:21:00 PM EDT - 12/04/2019 08:40:00 PM EDT [facility] Patient discharged. Outpatient Attender: KAROLYN VAN NP 12/04/2019 03: 11:00 PM EDT [facility] Outpatient Attender: Mavis DIEGO FP 11/29/2019 07:0 4:03 PM EDT [facility] Outpatient Attender: JOHNATHON DIEGO FP 11/29/2019 07:04:01 P M EDT [facility] Outpatient Attender: Mavis DIEGO FP 11/24/2019 12:2 9:00 PM EDT [facility] Emergency Attender: EVONNE Garzasultant: STAFF NON 11/07/2019 12:19:00 AM EDT - 11/07/2019 04:20:00 AM EDT [facility] Patient discharged. Outpatient [facility] 11/07/2019 12:00:00 AM EDT eCW1 ([facility]) Outpatient Attender: Mavis DIEGO FP 11/04/2019 02:2 6:02 PM EDT [facility] Outpatient Attender: KAROLYN VAN NP 11/04/2019 11: 40:00 AM EDT [facility] Outpatient Attender: Mavis DIEGO FP 11/02/2019 [...] PA-C 10/31/2019 09:06 :00 AM EDT [facility] Outpatient [facility] 10/31/2019 12:00:00 AM EDT eC1 ([facility]) Outpatient Attender: JANE EDWARD 10/27/2019 11:00:00 AM E [facility] Outpatient Attender: KAROLYN VAN NP 10/21/2019 03: 20:00 PM EDT [facility] Emergency Attender: EVONNE HINTONNANCIConsultant: STAFF NON 10/09/2019 02:09:00 AM EDT - 10/09/2019 03:44:00 AM EDT [facility] Patient discharged. Outpatient Attender: KATRIN BLUM 10/06/2019 09:37:00 AM ED [facility] Outpatient Attender: Mavis DIEGO FP 09/25/2019 04:0 9:01 PM EDT [facility] Outpatient Attender: Mavis DIEGO FP 09/25/2019 04:0 7:59 PM EDT [facility] Outpatient Attender: JOHNATHON DIEGO FP 09/23/2019 10:31:00 A M EDT [facility] Outpatient Attender: JOHNATHON DIEGO FP 09/23/2019 10:30:01 A M EDT [facility] Outpatient Attender: JOHNATHON DIEGO FP 09/23/2019 12:02:09 A M EDT [facility] Outpatient Attender: JOHNATHON DIEGO FP 09/22/2019 05:44:02 P M EDT [facility] Outpatient Attender: Mavis DIEGO FP 09/22/2019 05:4 2:59 PM EDT [facility] Outpatient Attender: JOHNATHON DIEGO FP 09/22/2019 02:38:00 P M EDT [facility] Outpatient Attender: Mavis DIEGO FP 09/22/2019 12:0 5:01 PM EDT [facility] Outpatient Attender: JOHNATHON DIEGO FP 09/22/2019 07:56:01 A M EDT [facility] Outpatient Attender: Mavis DIEGO FP 09/16/2019 05:0 8:02 AM EDT [facility] Outpatient Attender: Mavis DIEGO FP 09/14/2019 05:1 9:00 PM EDT [facility] Outpatient Attender: JOHNATHON DIEGO FP 09/14/2019 05:19:00 P M EDT [facility] Outpatient Attender: Mavis DIEGO FP 09/12/2019 11:5 3:00 AM EDT [facility] Outpatient Attender: Mavis DIEGO FP 09/10/2019 11:0 6:01 PM EDT [facility] Outpatient Attender: JOHNATHON DIEGO FP 09/10/2019 11:06:01 P M EDT [facility] Outpatient Referrer: Femi Marie MD 08/15/2019 05:44:00 A M EDT [facility] Outpatient Attender: Mavis DIEGO FP 08/06/2019 09:5 2:01 AM EDT [facility] Outpatient Attender: JOHNATHON DIEGO FP 08/05/2019 07:41:16 P M EDT [facility] Outpatient Attender: Mavis DIEGO FP 08/05/2019 09:2 3:03 AM EDT [facility] Outpatient Attender: JOHNATHON DIEGO FP 08/05/2019 09:23:01 A M EDT [facility] Outpatient Attender: KATRIN BLUM 08/04/2019 09:42:00 AM ED [facility] Outpatient Attender: Mavis DIEGO FP 08/01/2019 10:3 1:00 AM EDT [facility] Outpatient Attender: Mavis DIEGO FP 08/01/2019 10:2 7:02 AM EDT [facility] Outpatient Attender: JOHNATHON DIEGO FP 07/30/2019 11:31:01 A M EDT [facility] Outpatient Attender: KATRIN BLUM 07/07/2019 03:30:00 PM ED [facility] Outpatient Attender: Mavis DIEGO FP 07/04/2019 [...] Marie MD 07/01/2019 04:55:00 A M EDT [facility] Outpatient Attender: JOHNATHON DIEGO FP [...] Batista JOHNATHON FP 05/01/2019 03:31:00 P [facility] Outpatient Attender: Mavisgrant Batista JOHNATHON PATEL 04/28/2019 10:4 4:01 AM [facility] Outpatient Attender: KATRIN BLUM 04/21/2019 10:29:00 AM [facility] Outpatient Attender: JOHNATHON PATEL 04/15/2019 12:44:01 P [facility] Outpatient Attender: MAHESH RECINOS 02/24/2019 01:46:00 PM [facility] Outpatient Attender: JANE EDWARD 02/21/2019 10:00:00 AM [facility] Outpatient Attender: MAHESH RECINOS 02/10/2019 02:18:00 PM [facility] Inpatient Attender: CHAO MARI RICHMONDttdoug harjinder: PRERNA RIOS MDAdmitter: PRERNA RIOS MD ER-3RD 12/23/2018 04:01:00 PM EDT - 12/26/2018 01:22:00 PM EDT [facility] Patient discharged. Inpatient Attender: ONDINA RAMIREZ MDAdmitter: ONDINA RAMIREZ MD E R-ICU 12/19/2018 05:26:00 PM EDT - 12/23/2018 03:42:00 PM EDT [facility] Patient discharged. Emergency Attender: MATIAS MIKE EMERGENCY ROOM-ER 03:51:00 PM EDT - 12/19/2018 04:47:00 PM EDT [facility] Patient discharged. Medications Medication Brand Name [...] {capsule_at_bedtime} active Doxepin HCl 25 MG eCW1 ([facility]) Doxepin Hydrochloride 25 MG Oral Capsule Doxepin HCl 25 MG D oxepin HCl 25 MG 03/09/2020 12:00:00 AM EST 1.0 {capsule_at_bedtime} active Doxepin HCl 25 MG eCW1 ([facility]) Doxepin Hydrochloride 25 MG Oral Capsule Doxepin HCl 25 MG D oxepin HCl 25 MG 03/09/2020 12:00:00 AM EST 1.0 {capsule_at_bedtime} active Doxepin HCl 25 MG eCW1 ([facility]) Doxepin Hydrochloride 25 MG Oral Capsule Doxepin HCl 25 MG D oxepin HCl 25 MG 03/09/2020 12:00:00 AM EST 1.0 {capsule_at_bedtime} active Doxepin HCl 25 MG eCW1 ([facility]) Doxepin Hydrochloride 25 MG Oral Capsule Doxepin HCl 25 MG D oxepin HCl 25 MG 03/09/2020 12:00:00 AM EST 1.0 {capsule_at_bedtime} active Doxepin HCl 25 MG eCW1 ([facility]) Doxepin Hydrochloride 25 MG Oral Capsule Doxepin HCl 25 MG D oxepin HCl 25 MG 03/09/2020 12:00:00 AM EST 1.0 {capsule_at_bedtime} active Doxepin HCl 25 MG eCW1 ([facility]) Doxepin Hydrochloride 25 MG Oral Capsule Doxepin HCl 25 MG D oxepin HCl 25 MG 03/09/2020 12:00:00 AM EST 1.0 {capsule_at_bedtime} active Doxepin HCl 25 MG eCW1 ([facility]) Doxepin Hydrochloride 25 MG Oral Capsule Doxepin HCl 25 MG D oxepin HCl 25 MG 03/09/2020 12:00:00 AM EST 1.0 {capsule_at_bedtime} active Doxepin HCl 25 MG eCW1 ([facility]) 8-2 mg 03/03/2020 12:00:00 AM [...] activ e Clonidine HCl 0.2 MG eCW1 ([facility]) Clonidine Hydrochloride 0.2 MG Oral Tablet Clonidine H Cl 0.2 MG Clonidine HCl 0.2 MG 12/24/2019 12:00:00 AM EDT 1.0 {tablet} activ e Clonidine HCl 0.2 MG eCW1 ([facility]) Clonidine Hydrochloride 0.2 MG Oral Tablet Clonidine H Cl 0.2 MG Clonidine HCl 0.2 MG 12/24/2019 12:00:00 AM EDT 1.0 {tablet} activ e Clonidine HCl 0.2 MG eCW1 ([facility]) Clonidine Hydrochloride 0.2 MG Oral Tablet Clonidine H Cl 0.2 MG Clonidine HCl 0.2 MG 12/24/2019 12:00:00 AM EDT 1.0 {tablet} activ e Clonidine HCl 0.2 MG eCW1 ([facility]) Clonidine Hydrochloride 0.2 MG Oral Tablet Clonidine H Cl 0.2 MG Clonidine HCl 0.2 MG 12/24/2019 12:00:00 AM EDT 1.0 {tablet} activ e Clonidine HCl 0.2 MG eCW1 ([facility]) Clonidine Hydrochloride 0.2 MG Oral Tablet Clonidine H Cl 0.2 MG Clonidine HCl 0.2 MG 12/24/2019 12:00:00 AM EDT 1.0 {tablet} activ e Clonidine HCl 0.2 MG eCW1 ([facility]) Clonidine Hydrochloride 0.2 MG Oral Tablet Clonidine H Cl 0.2 MG Clonidine HCl 0.2 MG 12/24/2019 12:00:00 AM EDT 1.0 {tablet} activ e Clonidine HCl 0.2 MG eCW1 ([facility]) Clonidine Hydrochloride 0.2 MG Oral Tablet Clonidine H Cl 0.2 MG Clonidine HCl 0.2 MG 12/24/2019 12:00:00 AM EDT 1.0 {tablet} suspe nded Clonidine HCl 0.2 MG eCW1 ([facility]) Clonidine Hydrochloride 0.2 MG Oral Tablet Clonidine H Cl 0.2 MG Clonidine HCl 0.2 MG 12/24/2019 12:00:00 AM EDT 1.0 {tablet} activ e Clonidine HCl 0.2 MG eCW1 ([facility]) Clonidine Hydrochloride 0.2 MG Oral Tablet Clonidine H Cl 0.2 MG Clonidine HCl 0.2 MG 12/24/2019 12:00:00 AM EDT 1.0 {tablet} activ e Clonidine HCl 0.2 MG eCW1 ([facility]) Clonidine Hydrochloride 0.2 MG Oral Tablet Clonidine H Cl 0.2 MG Clonidine HCl 0.2 MG 12/24/2019 12:00:00 AM EDT 1.0 {tablet} activ e Clonidine HCl 0.2 MG eCW1 ([facility]) Clonidine Hydrochloride 0.2 MG Oral Tablet Clonidine H Cl 0.2 MG Clonidine HCl 0.2 MG 12/24/2019 12:00:00 AM EDT 1.0 {tablet} activ e Clonidine HCl 0.2 MG eCW1 ([facility]) Clonidine Hydrochloride 0.2 MG Oral Tablet Clonidine H Cl 0.2 MG Clonidine HCl 0.2 MG 12/24/2019 12:00:00 AM EDT 1.0 {tablet} activ e Clonidine HCl 0.2 MG eCW1 ([facility]) Clonidine Hydrochloride 0.2 MG Oral Tablet Clonidine H Cl 0.2 MG Clonidine HCl 0.2 MG 12/24/2019 12:00:00 AM EDT 1.0 {tablet} suspe nded Clonidine HCl 0.2 MG eCW1 ([facility]) Clonidine Hydrochloride 0.2 MG Oral Tablet Clonidine H Cl 0.2 MG Clonidine HCl 0.2 MG 12/24/2019 12:00:00 AM EDT 1.0 {tablet} activ e Clonidine HCl 0.2 MG eCW1 ([facility]) Clonidine Hydrochloride 0.2 MG Oral Tablet Clonidine H Cl 0.2 MG Clonidine HCl 0.2 MG 12/24/2019 12:00:00 AM EDT 1.0 {tablet} activ e Clonidine HCl 0.2 MG eCW1 ([facility]) Clonidine Hydrochloride 0.2 MG Oral Tablet Clonidine H Cl 0.2 MG Clonidine HCl 0.2 MG 12/24/2019 12:00:00 AM EDT 1.0 {tablet} suspe nded Clonidine HCl 0.2 MG eCW1 ([facility]) Clonidine Hydrochloride 0.2 MG Oral Tablet Clonidine H Cl 0.2 MG Clonidine HCl 0.2 MG 12/24/2019 12:00:00 AM EDT 1.0 {tablet} activ e Clonidine HCl 0.2 MG eCW1 ([facility]) Clonidine Hydrochloride 0.2 MG Oral Tablet Clonidine H Cl 0.2 MG Clonidine HCl 0.2 MG 12/24/2019 12:00:00 AM EDT 1.0 {tablet} activ e Clonidine HCl 0.2 MG eCW1 ([facility]) 300 mg 12/13/2019 [...] {tablet_at_bedtime} active Clonazepam 0 .5 MG eCW1 ([facility]) Clonazepam 0.5 MG Oral Tablet Clonazepam 0.5 MG 11/04/2019 12:00:00 AM EDT 1.0 {tablet_at_bedtime} active Clonazepam 0 .5 MG eCW1 ([facility]) lisdexamfetamine dimesylate 50 MG Oral Capsule [Vyvans e] Vyvanse 50 MG Vyvanse 50 MG 11/04/2019 12:00:00 AM EDT 1.0 {capsule_in_the_morning} active Vyvanse 50 MG eCW1 ([facility]) Citalopram 20 MG Oral Tablet [Celexa] Celexa 20 MG Celexa 20 MG 11/04/2019 12:00:00 AM EDT 1.0 {tablet} active Ce elise 20 MG eCW1 ([facility]) Citalopram 20 MG Oral Tablet [Celexa] Celexa 20 MG Celexa 20 MG 11/04/2019 12:00:00 AM EDT 1.0 {tablet} active Ce elise 20 MG eCW1 ([facility]) lisdexamfetamine dimesylate 50 MG Oral Capsule [Vyvans e] Vyvanse 50 MG Vyvanse 50 MG 11/04/2019 12:00:00 AM EDT 1.0 {capsule_in_the_morning} active Vyvanse 50 MG eCW1 ([facility]) Citalopram 20 MG Oral Tablet [Celexa] Celexa 20 MG Celexa 20 MG 11/04/2019 12:00:00 AM EDT 1.0 {tablet} active Ce elise 20 MG eCW1 ([facility]) 75 mg 11/02/2019 12:00:00 AM EDT tablet [...] 1.0 {tablet} active Risperdal 3 MG eCW1 ([facility]) Risperidone 3 MG Oral Tablet [Risperdal] Risperdal 3 MG Risp erdal 3 MG 07/07/2019 12:00:00 AM EDT 1.0 {tablet} active Risperdal 3 MG eCW1 ([facility]) Risperidone 3 MG Oral Tablet [Risperdal] Risperdal 3 MG Risp erdal 3 MG 07/07/2019 12:00:00 AM EDT 1.0 {tablet} active Risperdal 3 MG eCW1 ([facility]) Risperidone 3 MG Oral Tablet [Risperdal] Risperdal 3 MG Risp erdal 3 MG 07/07/2019 12:00:00 AM EDT 1.0 {tablet} active Risperdal 3 MG eCW1 ([facility]) Risperidone 2 MG Oral Tablet [Risperdal] Risperdal 2 MG Risp erdal 2 MG 07/07/2019 12:00:00 AM EDT 1.0 {tablet} active Risperdal 2 MG eCW1 ([facility]) Risperidone 3 MG Oral Tablet [Risperdal] Risperdal 3 MG Risp erdal 3 MG 07/07/2019 12:00:00 AM EDT 1.0 {tablet} active Risperdal 3 MG eCW1 ([facility]) Risperidone 3 MG Oral Tablet [Risperdal] Risperdal 3 MG Risp erdal 3 MG 07/07/2019 12:00:00 AM EDT 1.0 {tablet} active Risperdal 3 MG eCW1 ([facility]) Risperidone 3 MG Oral Tablet [Risperdal] Risperdal 3 MG Risp erdal 3 MG 07/07/2019 12:00:00 AM EDT 1.0 {tablet} active Risperdal 3 MG eCW1 ([facility]) Risperidone 3 MG Oral Tablet [Risperdal] Risperdal 3 MG Risp erdal 3 MG 07/07/2019 12:00:00 AM EDT 1.0 {tablet} active Risperdal 3 MG eCW1 ([facility]) Risperidone 3 MG Oral Tablet [Risperdal] Risperdal 3 MG Risp erdal 3 MG 07/07/2019 12:00:00 AM EDT 1.0 {tablet} active Risperdal 3 MG eCW1 ([facility]) Risperidone 2 MG Oral Tablet [Risperdal] Risperdal 2 MG Risp erdal 2 MG 07/07/2019 12:00:00 AM EDT 1.0 {tablet} active Risperdal 2 MG eCW1 ([facility]) Risperidone 3 MG Oral Tablet [Risperdal] Risperdal 3 MG Risp erdal 3 MG 07/07/2019 12:00:00 AM EDT 1.0 {tablet} active Risperdal 3 MG eCW1 ([facility]) Risperidone 3 MG Oral Tablet [Risperdal] Risperdal 3 MG Risp erdal 3 MG 07/07/2019 12:00:00 AM EDT 1.0 {tablet} active Risperdal 3 MG eCW1 ([facility]) Risperidone 3 MG Oral Tablet [Risperdal] Risperdal 3 MG Risp erdal 3 MG 07/07/2019 12:00:00 AM EDT 1.0 {tablet} active Risperdal 3 MG eCW1 ([facility]) Risperidone 3 MG Oral Tablet [Risperdal] Risperdal 3 MG Risp erdal 3 MG 07/07/2019 12:00:00 AM EDT 1.0 {tablet} active Risperdal 3 MG eCW1 ([facility]) Risperidone 3 MG Oral Tablet [Risperdal] Risperdal 3 MG Risp erdal 3 MG 07/07/2019 12:00:00 AM EDT 1.0 {tablet} active Risperdal 3 MG eCW1 ([facility]) Risperidone 3 MG Oral Tablet [Risperdal] Risperdal 3 MG Risp erdal 3 MG 07/07/2019 12:00:00 AM EDT 1.0 {tablet} active Risperdal 3 MG eCW1 ([facility]) Risperidone 3 MG Oral Tablet [Risperdal] Risperdal 3 MG Risp erdal 3 MG 07/07/2019 12:00:00 AM EDT 1.0 {tablet} active Risperdal 3 MG eCW1 ([facility]) Risperidone 2 MG Oral Tablet [Risperdal] Risperdal 2 MG Risp erdal 2 MG 07/07/2019 12:00:00 AM EDT 1.0 {tablet} active Risperdal 2 MG eCW1 ([facility]) Risperidone 3 MG Oral Tablet [Risperdal] Risperdal 3 MG Risp erdal 3 MG 07/07/2019 12:00:00 AM EDT 1.0 {tablet} active Risperdal 3 MG eCW1 ([facility]) Risperidone 3 MG Oral Tablet [Risperdal] Risperdal 3 MG Risp erdal 3 MG 07/07/2019 12:00:00 AM EDT 1.0 {tablet} active Risperdal 3 MG eCW1 ([facility]) Risperidone 3 MG Oral Tablet [Risperdal] Risperdal 3 MG Risp erdal 3 MG 07/07/2019 12:00:00 AM EDT 1.0 {tablet} active Risperdal 3 MG eCW1 ([facility]) 8-2 mg 06/27/2019 12:00:00 AM EDT film [...] relationship to dick Policy Dick Plan Information [facility] [id number] SP [id number] [facility] [id number] SP [id number] [facility] [id number] S [id number] [facility] MEDICAID [id number] S [id number] [facility](MCAID) O [id number] S [id number] [facility] MEDICAID [id number] S [id number] [facility] MEDICAID [id number] S [id number] Managed Care [facility] P [id number] S [id number] Medicaid S [id number] S [id number] [facility] [id number] S [id number] [facility] [id number] SP [id number] [facility] PLAN XIX [phone] MEDICAID [id number] SP [id number] Managed Care - Critical access hospital Plan P [id number] S [id number] MEDICAID [id number] S [id number] MEDICAID [id number] S [id number] MEDICAID PROF FEES [id number] MEDICAID [id number] S [id number] [facility] [id number] S [id number] Medicaid S [id number] S [id number] Managed Care - [facility] Plan [facility] P [id number] S [id number] [place] 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 CMM INSPECTOR DEPT [id number] SP [id number] SELF PAY UNAVAILABLE SP UNAVAILA BLE Self Pay P UNAVAILABLE S UNAVAILA BLE Medicaid P [id number] S [id number] [facility]IL[facility] S UNAVAILA BLE [facility] Care - Community Plan [facility] P [id number] S [id number] Medicaid S UNAVAILABLE S UNAVAILA BLE Problems, Conditions, and Diagnoses Code Display Name Description Problem Type Effective Dates Data Source(s) F19.10 Polysubstance abuse Polysubstance abuse Problem 0 03/11/2020 12:00:00 AM EST eCW1 ([facility]) F19.11 [id number] History of drug abuse Problem 03/01/2020 12: 00:00 AM EST eCW1 ([facility]) K14.6 [id number] Tongue sore Problem 03/01/2020 12:00:[address] eCW1 ([facility]) F19.10 [id number] Substance abuse Problem 12/24/2019 12:00:00 AM EDT eCW1 ([facility]) F50.81 [id number] Binge eating disorder Problem 11/04/2019 12: 00:00 AM EDT eCW1 ([facility]) G56.03 [id number] Carpal tunnel syndrome, bilateral Pr oblem 10/31/2019 12:00:00 AM EDT eCW1 ([facility]) R13.12 73166964 Oropharyngeal dysphagia Problem 10/31/2019 1 2:00:00 AM EDT eCW1 ([facility]) F17.200 48153439 Tobacco dependence Problem 10/31/2019 12:00: 00 AM EDT eCW1 ([facility]) E66.9 [id number] Obesity (BMI 30.0-34.9) Problem 0 10/31/2019 12:00:00 AM EDT eCW1 ([facility] jimena) Z68.30 [id number] BMI 30.0-30.9,adult Problem 10/31/2019 12:00 :00 AM EDT eCW1 ([facility]) K21.9 [id number] Gastroesophageal ref lux disease, esophagitis presence not specified Problem 10/31/2019 12:00:00 AM EDT [facility] K92.0 Hematemesis Hematemesis - cause unknown 020 05:42:44 PM EDT [facility] I80.9 Phlebitis and thrombophlebitis of unspec ified site Phlebitis and thrombophlebitis of unspecified site 05/20/2019 12:34:09 PM EDT [facility] right AC and right tibia F15.10 Other stimulant abuse, uncomplicated OTH ER STIMULANT ABUSE, UNCOMPLICATED Diagnosis 03/30/2020 10:30:00 AM [facility] l F19.10 Other psychoactive substance abuse, unco mplicated OTHER PSYCHOACTIVE SUBSTANCE ABUSE, UNCOMPLICATED Diagnosis 03/30/2020 10:30:00 AM [facility] F43.12 Post-traumatic stress disorder, chronic POST-TRAUMATIC STRESS DISORDER, CHRONIC Diagnosis 03/30/2020 10:30:00 AM [facility] l T14.8XXA OTHER INJURY OF UNSPECIFIED BODY REGION, INITIAL E OTHER INJURY OF UNSPECIFIED BODY REGION, INITIAL E Diagnosis 03/30/2020 10:18:00 AM [facility] K13.79 Other lesions of oral mucosa OTHER LESIONS OF ORAL MUC SINA Diagnosis 03/30/2020 10:18:00 AM [facility] F25.9 Schizoaffective disorder, unspecified SC HIZOAFFECTIVE DISORDER, UNSPECIFIED Diagnosis 03/30/2020 10:18:00 AM [facility] l A04.72 ENTEROCOLITIS D/T CLOSTRIDIUM DIFFICILE, NOT SPCF RECUR ENTEROCOLITIS D/T CLOSTRIDIUM DIFFICILE, NOT SPCF RECUR Diagnosis 10:18:00 AM [facility] F11.21 Opioid dependence, in remission OPIOID DEPENDENC E, IN REMISSION Diagnosis 03/23/2020 02:00:00 PM [facility] F50.81 BINGE EATING DISORDER BINGE EATING DISORDER Diagnosis 03/23/2020 02:00:00 PM [facility] F90.0 Attention-deficit hyperactivity disorder , predominantly inattentive type ATTN-DEFCT HYPERACTIVITY DISORDER, PREDOM INATTENT Diagnosis 01/2021 03:40:00 PM [facility] Z13.29 Encounter for screening for other suspec keven endocrine disorder ENCOUNTER FOR SCREENING FOR OTH SUSPECTE Diagnosis 03/01/2020 04:49:00 PM [facility] Z82.61 Family history of arthritis FAMILY HISTORY OF ARTHRITI S Diagnosis 03/01/2020 03:45:00 PM [facility] Z13.220 Encounter for screening for lipoid disor ders ENCOUNTER FOR SCREENING FOR LIPOID DISORDERS Diagnosis 03/01/2020 03:45:00 PM [facility] Z82.69 Family history of other dise ases of the musculoskeletal system and connective tissue FAMILY HISTORY OF DISEASES OF THE MS SYS AND CONNE Diagnosis 03/01/2020 03:45:00 PM [facility] R50.9 Fever, unspecified FEVER, UNSPECIFIED Diagnosis 05/2020 03:45:00 PM [facility] 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, in r emission OTHER PSYCHOACTIVE SUBSTANCE ABUSE, IN REMISSION Diagnosis 03/01/2020 03:45:00 PM [facility] G56.03 CARPAL TUNNEL SYNDROME, BILATERAL UPPER LIMBS CARPAL TUNNEL SYNDROME, BILATERAL UPPER LIMBS Diagnosis 03/01/2020 03:45:00 [facility] K21.9 Gastro-esophageal reflux disease without esophagitis GASTRO-ESOPHAGEAL REFLUX DISEASE WITHOUT ESOPHAGITIS Diagnosis 02/18/2020 10:00:00 AM [facility] F12.10 Cannabis abuse, uncomplicated CANNABIS ABUSE, UNCOMPLI CATED Diagnosis 12/24/2019 11:00:00 AM [facility] F11.10 Opioid abuse, uncomplicated OPIOID ABUSE, UNCOMPLICATE D Diagnosis 12/24/2019 11:00:00 AM [facility] R13.12 Dysphagia, oropharyngeal phase DYSPHAGIA, OROPHARYNGEA L PHASE Diagnosis 12/24/2019 08:24:00 AM [facility] M54.2 Cervicalgia CERVICALGIA Diagnosis 12/24/2019 08:24:00 AM [facility] T50.914D POISONING BY MULTIPLE UNSP DRUG/MEDS/BIO L SUBST, U POISONING BY MULTIPLE UNSP DRUG/MEDS/BIOL SUBST, U Diagnosis 12/24/2019 08:24:00 AM [facility] F19.20 Other psychoactive substance dependence, uncomplicated OTHER PSYCHOACTIVE SUBSTANCE DEPENDENCE, UNCOMPLIC Diagnosis 12/05/2019 10:08:00 AM [facility] R45.851 Suicidal ideations SUICIDAL IDEATIONS Diagnosis 10/2019 10:08:00 AM [facility] G40.909 Epilepsy, unspecified, not intractable, without status epilepticus EPILEPSY, UNSP, NOT INTRACTABLE, WITHOUT STATUS EP Diagnosis 10/2019 10:08:00 AM [facility] F32.2 Major depressive disorder, s rito episode, severe without psychotic features MAJOR DEPRESSV DISORD, SINGLE EPSD, SEV Diagnosis 12/05/2019 10:08:00 AM [facility] F25.1 Schizoaffective disorder, depressive typ e SCHIZOAFFECTIVE DISORDER, DEPRESSIVE TYPE Diagnosis 12/05/2019 10:08:00 AM [facility] james Y92.[address] or not applicable UNSPECIFIED PLACE OR NOT APPLICABLE Diagnosis 12/04/2019 11:06:00 PM [facility] X58.XXXA Exposure to other specified factors, ini tial encounter EXPOSURE TO OTHER SPECIFIED FACTORS, INITIAL ENCOU Diagnosis 12/04/2019 11:06:00 P M [facility] T42.6X2A Poisoning by other antiepile ptic and sedative-hypnotic drugs, intentional self-harm, initial encounter POISN BY OT ANTIEPLPTC AND SED-HYPNTC DRUGS, SLF- Diagnosis 12/04/2019 11:06:00 PM [facility] james T40.902A Poisoning by unspecified psy chodysleptics [hallucinogens], intentional self-harm, initial encounter POISONING BY UNSP PSYCHODYSLEPTICS, SELF-HARM, INI Diagnosis 12/04/2019 11:06:00 PM [facility] K21.9 Gastro-esophageal reflux disease without esophagitis GASTRO-ESOPHAGEAL REFLUX DISEASE WITHOUT ESOPHAGIT Diagnosis 12/04/2019 11:06:00 PM [facility] F90.9 Attention-deficit hyperactivity disorder , unspecified type ATTENTION- DEFICIT HYPERACTIVITY DISORDER, UNSPECIF Diagnosis 12/04/2019 11:06:00 PM [facility] F43.10 Post-traumatic stress disorder, unspecif ied POST-TRAUMATIC STRESS DISORDER, UNSPECIFIED Diagnosis 12/04/2019 11:06:00 PM [facility] F43.23 Adjustment disorder with mixed anxiety a nd depressed mood ADJUSTMENT DISORDER WITH MIXED ANXIETY AND DEPRESS Diagnosis 12/04/2019 11:06:00 PM [facility] T42.4X2A Poisoning by benzodiazepines, intentiona l self-harm, initial encounter POISONING BY BENZODIAZEPINES, INTENTIONAL SELF-HARM, INIT Diagnosis 12/04/2019 11:06:00 PM [facility] Y93.89 Activity, other specified ACTIVITY, OTHER SPECIFIED Di agnosis 12/04/2019 04:21:00 PM [facility] Y92.[address] the place of o ccurrence of the external cause OT PLACES THE PLACE OF OCCURRENCE OF THE EXTER Diagnosis 09/2019 04:21:00 PM [facility] Z79.899 Other penitentiary (current) drug therapy O THER ALF (CURRENT) DRUG THERAPY Diagnosis 12/04/2019 04:21:00 PM [facility] Z20.828 Contact with and (suspected) exposure to other viral communicable diseases CONTACT W AND EXPOSURE TO OT VIRAL COMMUNICABLE D Diagnosis 12/04/2019 04:21:00 PM [facility] F17.210 Nicotine dependence, cigarettes, uncompl icated NICOTINE DEPENDENCE, CIGARETTES, UNCOMPLICATED Diagnosis 12/04/2019 04:21:00 PM [facility] T50.992A Poisoning by other drugs, me dicaments and biological substances, intentional self-harm, initial encounter POISONING BY OT DRUG/MEDS/BIOL SUBST, SELF-HARM, Diagnosis 12/04/2019 04:21:00 PM [facility] R45.851 Suicidal ideations SUICIDAL IDEATIONS Diagnosis 09/2019 04:21:00 PM [facility] E64674 Nicotine dependence, cigarettes, uncompl icated Nicotine dependence, cigarettes, uncomplicated Diagnosis 11/07/2019 12:19:00 AM [facility] F1510 Other stimulant abuse, uncomplicated Other stimu lant abuse, uncomplicated Diagnosis 11/07/2019 12:19:00 AM [facility] R21584 Other psychoactive substance abuse with psychoactive substance-induced anxiety disorder Other psychoactive substance abuse with psychoactive substance- induced anxiety disorder Diagnosis 11/07/2019 12:19:00 AM [facility] R110 Nausea Nausea Diagnosis 11/07/2019 12:19:00 AM ED [facility] Z76.89 Persons encountering health services in other specified circumstances PERSONS ENCOUNTERING HEALTH SERVICES IN OT CIRCUM Diagnosis 05/2019 09:06:00 AM [facility] Z71.9 Counseling, unspecified COUNSELING, UNSPECIFIED Diagno sis 10/31/2019 09:06:00 AM [facility] Z68.30 Body mass index (BMI) 30.0-30.9, adult B BOB MASS INDEX (BMI) 30.0-30.9, ADULT Diagnosis 10/31/2019 09:06:00 AM [facility] E66.9 Obesity, unspecified OBESITY, UNSPECIFIED Diagnosis 10/31/2019 09:06:00 AM [facility] R56.9 Unspecified convulsions UNSPECIFIED CONVULSIONS Diagno sis 10/31/2019 09:06:00 AM [facility] F909 Attention-deficit hyperactivity disorder , unspecified type Attention- deficit hyperactivity disorder, unspecified type Diagnosis 10/08 02:09:00 AM [facility] J029 Acute pharyngitis, unspecified Acute pharyngitis, unsp ecified Diagnosis 10/09/2019 02:09:00 AM [facility] F15.11 OTHER STIMULANT ABUSE, IN REMISSION OTHER STIMUL ANT ABUSE, IN REMISSION Diagnosis 02/24/2019 01:46:00 PM [facility] Surgeries/Procedures Procedure Description Date Indications Data Source(s) Psychological Tests, Neurobehavioral and Cognitive Status 12/06/2019 12:00:00 AM [facility] Introduction of Electrolytic and Water B alance Substance into Peripheral Vein, Percutaneous Approach 12/04/2019 12:00:00 AM [facility] Results ID Date Data Source [id number] 04/10/2020 02:50:00 PM EST [facility] Name Value Range Interpretation Code Description Data [place] rce(s) Supporting Document(s) SARS coronavirus 2 RNA [Presence] in Res piratory specimen by MARK with probe detection POSITIVE [facility] This lab was ordered by [facility] a nd reported by [facility]. ID Date Data Source [id number] 04/09/2020 02:48:00 AM EST [facility] Name Value Range Interpretation Code Description Data [place] rce(s) Supporting Document(s) SARS COVID ANTIGEN [facility] a nd reported by [facility]. ID Date Data Source [id number] 04/09/2020 02:46:00 AM EST [facility] Name Value Range Interpretation Code Description Data [place] rce(s) Supporting Document(s) SARS COVID ANTIGEN POSITIVE [facility] This lab [facility] a nd reported by [facility]. ID Date Data Source [id number] 03/04/2020 12:09:00 PM [facility] Name Value Range Interpretation Code Description Data [place] rce(s) Supporting Document(s) FAZAL DIRECT Negative Negative [facility] Performed at: RN - [facility] [address] [id number] Director: Elsa Garcia MD, Phone: [phone] ID Date Data Source [id number] 03/04/2020 12:05:00 PM EST [facility] Name Value Range Interpretation Code Description Data [place] rce(s) Supporting Document(s) FAZAL Direct Negative Negative [facility] ID Date Data Source [id number] 03/03/2020 08:50:00 AM EST [facility] ADD ON TEST Name Value Range Interpretation Code Description Data [place] rce(s) Supporting Document(s) RHEUMATOID FACTOR SCREEN NEGATIVE NEGATIVE [facility] ID Date Data Source [id number] 03/03/2020 08:37:00 AM EST [facility] ADD ON TEST Name Value Range Interpretation Code Description Data [place] rce(s) Supporting Document(s) FREE T4 1.0 ng/dL 0.76-1.46 [facility] ID Date Data Source [id number] 03/03/2020 08:37:00 AM EST [facility] ADD ON TEST Name Value Range Interpretation Code Description Data [place] rce(s) Supporting Document(s) TSH 0.422 uIU/mL 0.36-3.74 [facility] ID Date Data Source [id number] 03/03/2020 08:11:00 AM EST [facility] ADD ON TEST Name Value Range Interpretation Code Description Data [place] rce(s) Supporting Document(s) C REACTIVE PROTEIN 15.6 mg/L 0.0-3.0 [facility] ID Date Data Source [id number] 03/03/2020 08:11:00 AM EST [facility] ADD ON TEST Name Value Range Interpretation Code Description Data [place] rce(s) Supporting Document(s) GLUCOSE 85 mg/dL 74-106 [facility] BLOOD UREA NITROGEN 11 mg/dL 7-18 [facility] ital CREATININE 0.88 mg/dL 0.6-1.0 [facility] SODIUM 135 mmol/L 136-145 L [facility] POTASSIUM 4.1 mmol/L 3.5-5.1 [facility] CHLORIDE 99 mmol/L 98-107 [facility] CO2 26 mmol/L 21-32 [facility] CALCIUM 8.8 mg/dL 8.5-10.1 [facility] ANION GAP 10.0 mmol/L 5-12 [facility] GLOMERULAR FILTRATION RATE 74 mL/min [facility] GFR IS CALCULATED IN mL/min/1.73m2 LISANDRA L FUNCTION: >90MILDLY DECREASED: 60-89MILDY TO MODERATELY DECREASED: 45-59 MODERATELY TO SEVERELY DECREASED: 30-44SEVERELY DECREASED: 15-29RENAL FAILURE: <15 AST 32 U/L 15-37 [facility] ALT 32 U/L 12-78 [facility] ALKALINE PHOSPHATASE 65 U/L 46-116 [facility] pital TOTAL BILIRUBIN 0.2 mg/dL 0.2-1.0 [facility] TOTAL PROTEIN 6.9 g/dl 6.4-8.2 [facility] ALBUMIN 3.9 gm/dL 3.4-5.0 [facility] ID Date Data Source [id number] 03/01/2020 05:46:00 PM EST [facility] l Name Value Range Interpretation Code Description Data [place] rce(s) Supporting Document(s) CHOLESTEROL 193 mg/dL 0-200 [facility] TRIGLYCERIDES 86 mg/dL 0-150 [facility] LDL CHOLESTEROL 111 mg/dL 0-100 H [facility] HDL CHOLESTEROL 65 mg/dL 40-60 H [facility] CHOL/HDL RATIO 3.0 0.0-5.0 [facility] ID Date Data Source [id number] 02/29/2020 10:40:00 AM EST [facility] Name Value Range Interpretation Code Description Data [place] rce(s) Supporting Document(s) SARS coronavirus 2 RNA [facility] This lab was ordered by [facility] and reported by [facility]. ID Date Data Source [id number] 12/10/2019 11:15:00 AM EDT [facility] [address] [address] NAME: BRUNA LEE#: [id number] PHYSICIAN: PRERNA RIOS MD ADM. DATE: 12/05/19ACCOUNT #: [id number] DISCH. DATE:DISCHARGE SUMMARYIDENTIFICATION: A 34-year-old female with schizoaffective disorder,polysubstance dependence.CHIEF COMPLAINT: "I don't know why I am here."REASON FOR ADMISSION: Post- overdose.HISTORY OF PRESENT ILLNESS: The patient was interviewed in ICU after sheoverdosed. The patient was seen in [facility] for a regularconsultation, she could [...] behavior. We discussed with the patient yayo torres 2 weeks prior to this admission and [...] [place] time in our service with [...] ABUSE: None.SOCIAL HISTORY: The patient is from [place], did not finish high school.She was in [...] The patient was discharged with the medications Knwtwm79 mg p.o. daily, Neurontin 600 mg p.o. [...] be enrolled in outpatient chemical dependence in [place].MENTAL STATUS EXAMINATION: The patient is pleasant, cooperative. [...] Dictated: 12/10/2019 09:34:34Date Transcribed: 12/10/2019 10:15:05JV/PUSJob #: [id number]: 12/10/19 0934 Electronically SignedTRANS:12/10/19 1115 PRERNA RIOS MDTRANS BY:ADE SIGNED:12/10/19REPORT COPY TO: Name Value Range Interpretation Code Description Data [place] rce(s) Supporting Document(s) ID Date Data Source [id number] 12/10/2019 06:43:00 AM EDT [facility] [address] [address]A[facility] NAME: BRUNA LEE#: [id number] PHYSICIAN: PRERNA RIOS MDACCOUNT #: [id number] ADM. DATE: 12/05/19PATIENT : 89 DISCH. DATE: [50}DISCHARGE SUMMARYMHU discharge planNicotine Replacement TherapySmoking Status Current every day smokerPrescribed at discharge [facility]/Drug DisorderAlcohol or Drug Disorder medication prescribed, counseling prescribedPersonal Care InstructionsDischarge Activity: As tolerated Discharge diet: RegularFollow Up CareFollow Up:Follow up with your Primary care physicianPriority ItemsUrgent/Important items that need to be addressed at primary care follow-upappointmentDischarge InformationDISCHARGE INFORMATION* [facility] and allowing us toserve you* Our Goal is to provide the highest quality of care.* This discharge information is to help you better understand your diagnosisand medication* Avoid taking lcvs-vka-vrmdpsb medicines unless approved by your physician.* Take your medications as prescribed. DO NOT stop any medications unlessapproved first* Weigh yourself daily. Report any gain of 5 lbs in a week* 24 Hour Crisis HOTLINE available: Call [facility] at [phone]* Chem. Dependency: Walk in Clinics [place] ([phone]) and [place] ([phone]) anytime Sunday thru Sunday 8 to 10am. [place] ([phone]) anytimeMond thru Sunday 8 to 10am. [facility] ([phone]) Sunday or Sunday from 8to 10am (Bring $30 to [facility]) SMOKIN G CESSATION* Smoking is dangerous to your health. It delays the healing process, andworks against your medications. Not smoking will improve your health* Our hospital participates with the Opt-to-Quit program. You will be contactedafter discharge by the [facility] Smoker's Quitline for support with tobaccocessation. You have the option once contacted to refuse this service.* You can also go online to www.RETC. Free nicotine replacementsare available Attention* You should contact your follow up Physician as it is important that you lethim or her check you and report any new or remaining problems. If yourcondition worsens, follow up with your provider or visit our EmergencyDepartment. If you received pain medication, anxiety medications, musclerelaxants, or any medication that causes drowsiness, you cannot operatewhoplusyouhiKargoCardy, power tools, or drive.Safe ActSafe Act Completed NoiStopiStop completed NoEND ENDDICT: 12/10/1941 Electronically SignedTRANS:12/10/19642 PRERNA RIOS MDTRANS BY:DATE SIGNED:12/10/19TIME SIGNED: 0644REPORT COPY TO: Name Value Range Interpretation Code Description Data [place] rce(s) Supporting Document(s) ID Date Data Source [id number] 12/10/2019 02:15:00 AM EDT [place], [place] [address]PATIENT NAME: BRUNA LEE Joe Orellana#: [id number] PHYSICIAN: PRERNA RIOS MD ADM. DATE: 12/05/19PROGRESS NOTE DATE: 12/09/19 .#: [id number] #: [id number] NOTEIDENTIFICATION: A 34-year-old female with mood disorder [...] Dictated: 12/09/2019 10:52:52Date Transcribed: 12/10/2019 01:15:28JV/RAVJob #: [id number]: 12/09/19 1052 Electronically SignedTRANS:12/10/19 0215 PRERNA RIOS MDTRANS BY:IATDATE SIGNED:12/10/19REPORT COPY TO: Name Value Range Interpretation Code Description Data [place] rce(s) Supporting Document(s) ID Date Data Source [id number] 12/08/2019 11:58:00 AM EDT [facility] Name Value Range Interpretation Code Description Data [place] rce(s) Supporting Document(s) URINE COLOR Yellow [facility] UAPR Clear [facility] UGLU Negative NEGATIVE [facility] URINE BILIRUBIN Negative NEGATIVE [facility] UKET Negative NEGATIVE [facility] USG 1.015 1.010-1.025 [facility] UBLO Negative NEGATIVE [facility] UpH 8.0 5.0-8.0 [facility] UPRO Negative Negative [facility] UUB 0.2 mg/dL 0.2-1.0 [facility] UNIT Negative Negative [facility] ULEU Negative Negative [facility] ID Date Data Source [id number] 12/09/2019 04:57:00 AM EDT [facility] [address], [place] [address]MLIFMRT NAME: BRUNA LEE#: [id number] PHYSICIAN: PRERNA RIOS MD ADM. DATE: 12/05/19PROGRESS NOTE DATE: 12/08/19 .#: [id number] #: [id number] NOTEIDENTIFICATION: A 34-year-old female with mood disorder, [...] Dictated: 12/08/2019 10:30:51Date Transcribed: 12/09/2019 03:57:49JV/Basia #: [id number]: 12/08/19 1030 Electronically SignedTRANS:12/09/19 0457 PRERNA RIOS MDTRANS BY:IATDATE SIGNED:12/09/19REPORT COPY TO: Name Value Range Interpretation Code Description Data [place] rce(s) Supporting Document(s) ID Date Data Source [id number] 12/06/2019 11:02:00 PM EDT [facility] [address] [address]QFUNVNP NAME: BRUNA LEE#: [id number] PHYSICIAN: PRERNA RIOS MD ADM. DATE: 12/05/19ACCOUNT #: [id number] .#: [id number] ASSESSMENTIDENTIFICATION: A 34-year-old female with schizoaffective disorder andpolysubstance dependence.CHIEF COMPLAINT: "I don't know why I am here."REASON FOR ADMISSION: Post-overdose.HISTORY OF PRESENT ILLNESS: According to the records and our interview, thepatient was brought to our service after being in ICU and the medical floorfor an overdose. The patient went to the outpatient clinic in [facility] and she passed out in consultation. She [...] 2 weeks ago, that she was in [place] inpatient service for 5 days forthat.The patient [...] into detail.SOCIAL HISTORY: The patient is from [place]. Did not finish high school.She is in [...] Dictated: 12/06/2019 12:22:47Date Transcribed: 12/06/2019 22:02:14JV/GBJob #: [id number]: 12/06/19 1222 Electronically Signed TRANS:12/06/19 7306 PRERNA RIOS MDTRANS BY:ADE SIGNED:12/07/19REPORT COPY TO: Name Value Range Interpretation Code Description Data [place] rce(s) Supporting Document(s) ID Date Data Source [id number] 12/05/2019 02:12:00 AM EDT [facility] Name Value Range Interpretation Code Description Data [place] rce(s) Supporting Document(s) CKI 109 U/L 17-150 [facility] ID Date Data Source [id number] 12/05/2019 04:49:00 PM EDT [facility] [address] HEALTH HISTORY AND PHYSICALPATIENT NAME: BRUNA LEE MR#: [id number] PHYSICIAN: PRERNA RIOS MDAUTHOR: Diogenes Bueno MD [...] and [facility]Past Medical/Surgical HistoryPast Medical/Surgical HistoryMedical ProblemsAcute [...] rce(s) Supporting Document(s) ID Date Data Source [id number] 12/05/2019 09:48:00 AM EDT [facility] [address]JCXJFSGMR SUMMARYPATIENT NAME: BRUNA LEE MR#: [id number] PHYSICIAN: BEHZAD HOGAN MDAUTHOR: Diogenes Bueno MD DATE: 12/04/19 RM#: [id number] DATE: 12/05/19 : 89Summary of HospitalizationReason for AdmissionOverdose on xanax, gabapentin, bath saltsHospital Pbpgvr6 yo F who was admitted for an [...] official psychiatry consult was called and Dr. oGmezequested that the pt be 2 PC'ed and brought to the MHU for further psychiatriccare (given that the pt overdosed). Poison control was re- contacted and I wasinformed by Dianne from poison control that the case had been closed on 12/05/2019. 2 PC paperwork was completed and [facility]Diagnoses (Current Visit)Problem List1. Drug overdose2. [...] taking the following medications:Gabapentin* (Neurontin*) 400 MG [id number] MILLIGRAM Orally DAILYContinue taking these medications:LEVETIRACETAM (LEVETIRACETA) 1,000 MG TABLET1,000 MILLIGRAM Orally TWICE DAILYQty = 60Amitriptyline HCl (Amitriptyline HCl) 100 MG [id number] MILLIGRAM Orally DAILYSUCRALFATE (Carafate*) 1 GM TABLET1 GM Orally TWICE DAILYcloniDINE* (CLONIDINE*) 0.1 MG TABLET0.1 MILLIGRAM Orally TWICE DAILYOmeprazole Magnesium (Prilosec Otc) 20 MG TABLET.DR20 MILLIGRAM Orally DAILYrispERIdone (RISPERDAL*) 0.5 MG TABLET2 MILLIGRAM Orally TWICE DAILYATOMOXETINE HCL (Strattera) 18 MG [id number] MILLIGRAM Orally DAILYBUPRENORPHINE HCL/NALOXONE HCL (Suboxone 8 MG-2 MG Sl Film) 1 EACH FILM1 MILLIGRAM SublinguallySUMATRIPTAN SUCCINATE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 STUDY ORDERSOrder Description Priority Entered Acknowledged InitialedMEDICATION/IV/DRIP/FLUID ORDERSOrder Description Priority Entered Acknowledged InitialedNS IV 1000 mL 01:01 11/07/2019 Ack'd: 01:22 Meme 02:26 Meme BlairBolus: : Bolus 1000 Evonne Anne R.N., R.N.mL (X1) Jeremie;Zofran 4 mg IVP X 1 01:01 11/07/2019 Ack'd: 01:22 Meme 02:27 Meme Blairdose: 4 mg (NOW Evonne Anne R.N. RJayroNJayrox1) Jeremie; 2 OrderSheet [facility] Emerg ency Department [address] [place] [address] Phone #: ext- [phone] 11/07/2019 00:19 Patient: BRUNA LEE Sex: F : 1985 Age: 34yGENERAL ORDERSOrder Description Priority Entered Acknowledged Initialed[Electronically signed by Mara Gonzalez R.N. (04:20 11/07/2019)][Electronically signed by Evonne Anne M.D. (05:23 11/07/2019)][Electronically locked by Mara Gonzalez R.N. (04:11/07/2019)] Name Value Range Interpretation Code Description Data [place] rce(s) Supporting Document(s) ID Date Data Source [id number] 11/07/2019 12:19:00 AM EDT [facility] 1 Medication Reconciliation Report [facility] Emergency Department [address] [place] [address] Phone #: ext- [phone] 11/07/2019 00:19 [id number] Sex: F : 1985 Age: 34yWeight: 78.9 [...] rce(s) Supporting Document(s) ID Date Data Source [id number] 11/07/2019 12:19:00 AM EDT [facility] 1 Medication Administration Record [facility] Emergency Department [address] [place] [address] Phone #: ext- [phone] 11/07/2019 00:19 Patient: BRUNA LEE Sex: F : 1985 Age: 34yWeight: 78.9 kgHeight/Length: 60 inBMI: 34ALLERGIES: Penicillins, Sulfa Antibiotics Date/Time Medication Administered Medication OrderedStart IV NS NS IV 1000 mL Bolus: : Bolus [id number] 11/07/2019 Dose: IV Fluids mL (X1)Meme Maldonado R.N. Rate: 999 mL/hr---- Dispensed: 1000 mL bagStop Site: #1 left wrist03:55 11/07/2019Mara Gonzalez R.N.Given ZOFRAN [IVP] (ONDANSETRON HCL) Zofran 4 mg IVP X 1 dose: 4 mg02:22 11/07/2019 Dose: 4 mg IVP (NOW x1)Meme Maldonado R.N. Site: #1 left wrist Name Value Range Interpretation Code Description Data [place] rce(s) Supporting Document(s) ID Date Data Source [id number] 11/07/2019 12:19:00 AM EDT [facility] 1 General Instructions [facility] Emergency Department [address] [place] [address] Phone #: ext- [phone] 11/07/2019 00:19 Patient: [...] to plan of care. 2 General Instructions [facility] Emergency Department [address] [place] [address] Phone #: ext- [phone] 11/07/2019 00:19 Patient: [...] Tiredness Inability to sleep 3 General Instructions [facility] Emergency Department [address] [place] [address] Phone #: ext- [phone] 11/07/2019 00:19 Patient: [...] help you manage stress. 4 General Instructions [facility] Emergency Department [address] [place] [address] Phone #: ext- [phone] 11/07/2019 00:19 Patient: [...] relieved by rest and mild pain reliever [id number] [employer] [place] [address]. All rights reserved. This information is not intended as asubstitute for professional medical care. Always follow your healthcare professional's instructions. You have been given the following additional information: Anxiety Reaction(Electronically signed by Evonne Anne M.D. 11/07/2019 05:23) Name Value Range Interpretation Code Description Data [place] rce(s) Supporting Document(s) ID Date Data Source [id number] 11/07/2019 12:19:00 AM EDT [facility] 1 Clinical Report - Nurses [facility] Emergency Department [address] [place] [address] Phone #: ext- [phone] 11/07/2019 00:19 Patient: BRUNA LEE Sex: F : 1985 Age: 34yTRIAGEHistorian: EMS and patient.Triage time: 00:24 11/07/2019.Chief Complaint: NAUSEA and ("face swelling").Onset. (states that it has been going on all day.). ( states that she has been sleeping a lot and used Molly2 days ago. No Meth in 2 weeks.).Treatment STAFFING COORDINATOR:(Took her normal medications today.). --00:27 11/07/19 Meme [...] last month. 2 Clinical Report - Nurses [facility] Emergency Department [address] [place] [address] Phone #: ext- [phone] 11/07/2019 00:19 Patient: BRUNA LEE Sex: F [...] wrists and OD pills. Was [facility] 3 wks. Last admit 2017. Sees a [...] pump. Allergies 3 Clinical Report - Nurses [facility] Emergency Department [address] [place] [address] Phone #: [phone] kut- [phone] 11/07/2019 00:19 Patient: BRUNA LEE Sex: F [...] labeled in the presence of the patient. --02:20 Meme Maldonado R.N. The patient is calm and resting quietly. ( [place] provided. Reassurance given to pt. Lights dimmed. [...] Patient verbalized understanding. Written instructions provided in Malagasy. The patient was discharged by the physician. [...] rce(s) Supporting Document(s) ID Date Data Source [id number] 11/07/2019 12:19:00 AM EDT [facility] 1 Clinical Report - Physicians/Mid Levels [facility] Emergency Department [address] [place] [address] Phone #: ext- [phone] 11/07/2019 00:19 Patient: [...] no Meth in over 2 weeks; woke STAFFING COORDINATOR w face swelling and nausea, no other Sx, no withdrawal, ROS otw neg.; pt known at [facility] for multiple ER visits for different [...] Repair. 2 Clinical Report - Physicians/Mid Levels [facility] Emergency Department [address] [place] [address] Phone #: ext- [phone] 11/07/2019 00:19 Patient: BRUNA LEE Sex: F [...] (Reference) 3 Clinical Report - Physicians/Mid Levels [facility] Emergency Department [address] [place] [address] Phone #: ext- [phone] 11/07/2019 00:19 Patient: [facility]EE [id number] Sex: F : 1985 Age: 34y CBC [...] Male GFR Interprentation 20-49 yrs >60 mL/min Yvvllt36-48 yrs >56 mL/min Normal 60- 69 yrs >49 mL/min Normal 70-79yrs>42 mL/min Normal 80 and above >35 mL/min Normal Female GFRInterpretation 20-39 yrs >60 mL/min Normal 40-49 yrs >58 mL/minNormal 50-59 yrs >51 mL/min Normal 60-69 yrs >45 mL/min Normal 4 Clinical Report - Physicians/Mid Levels [facility] Emergency Department [address] [place] [address] Phone #: ext- [phone] 11/07/2019 00:19 Patient: BRUNA LEE Sex: F : 1985 Age: 90j55-16 yrs >39 mL/min Normal 80 and above >32 mL/min NormalBeta-HCG, Qual Serum: (JENN: 11/07/2019 02:15) ( [place] [facility] 11/07/[facility] 03:20) Final results Test Result Flag Units (Reference) HCG SERUM QUAL NEGATIVE (NORMAL: NEGAT HCG SERUM QL REENTER NEGATIVE (NORMAL: NEGAT { KIT LOT # [id number] ){ KIT EXP [id number] ){ PROCEDURAL CONTROL VALID)CPK: (JENN: 11/07/2019 02:15) ( [place] [facility] [place] 11/07/2019 03:15) Final results Test Result Flag Units (Reference) CPK 313 H U/L (30 - 170)Drug Screen-Urine: (JENN: 11/07/2019 02:00) ( [place] [facility] [place] 11/07/2019 03:15) Final [...] PRESUMPTIVE POSITIVE CONFIRMATION WILL BE PERFORMED AT [facility].Urinalysis: (JENN: 11/07/2019 02:00) ( [facility] 11/07/2019 02:28) Final results Test Result [...] Indicate 5 Clinical Report - Physicians/Mid Levels [facility] Emergency Department [address] [place] [address] Phone #: ext- [phone] 11/07/2019 00:19 Patient: [...] was requested by: Evonne Anne Reference #: [id number] Others' Prescriptions Patient Name: Bruna LeeBirth Date: 1985 Address: [address] [place] [id number]: Female Rx Written Rx Dispensed Drug Quantity [...] table. 6 Clinical Report - Physicians/Mid Levels [facility] Emergency Department [address] [place] [address] Phone #: ext- [phone] 11/07/2019 00:19 Patient: [...] Oral. 7 Clinical Report - Physicians/Mid Levels [facility] Emergency Department [address] [place] [address] Phone #: ext- [phone] 11/07/2019 00:19 Patient: [...] rce(s) Supporting Document(s) ID Date Data Source [id number] 11/07/2019 03:20:00 AM EDT [facility] Name Value Range Interpretation Code Description Data [place] rce(s) Supporting Document(s) HCG SERUM QUAL NEGATIVE NORMAL: NEGATIVE [facility] HCG SERUM QL REENTER NEGATIVE NORMAL: NEGATIVE [facility] { KIT LOT # [id number] ){ KIT EXP DATE 12-08-20 ){ PROCEDURAL CONTROL VALID ) ID Date Data Source [id number] 11/07/2019 03:15:00 AM EDT [facility] Name Value Range Interpretation Code Description Data [place] rce(s) Supporting Document(s) Creatine kinase [Enzymatic activity/volume] in Serum or Plasma 3 13 U/L 30 - 170 H [facility] ID Date Data Source [id number] 11/07/2019 03:14:00 AM EDT [facility] Name Value Range Interpretation Code Description Data [place] rce(s) Supporting Document(s) COMPREHENSIVE METABOLIC PANEL [facility] COMPREHENSIVE METABOLIC PANEL Sodium [Moles/volume] in Serum or Plasma 140 mEq/L 134 - 153 [facility] Potassium [Moles/volume] in Serum or Plasma 3.8 mEq/L 3.6 - 5.0 [facility] Chloride [Moles/volume] in Serum or Plasma 100 mEq/L 98 - 107 [facility] Carbon dioxide, total [Moles/volume] in Serum or Plasma 30 MEQ/L 22 - 30 [facility] Glucose [Mass/volume] in Serum or Plasma 98 MG/DL 65 - 110 [facility] BUN 14 MG/DL 7 - 21 [facility] al Creatinine [Mass/volume] in Serum or Plasma 0.7 MG/DL 0.7 - 1.5 [facility] BUN/CREAT 20 8 - 27 [facility] Protein [Mass/volume] in Serum or Plasma 5.9 G/DL 6.3 - 8.2 L [facility] Albumin [Mass/volume] in Serum or Plasma 3.6 G/DL 3.9 - 5.0 L [facility] Globulin [Mass/volume] in Serum by calculation 2.3 GM/DL 2.4 - 3.2 L [facility] A/G RATIO 1.6 0.8 - 2.0 [facility] Calcium [Mass/volume] in Serum or Plasma 9.2 MG/DL 8.4 - 10.2 [facility] Bilirubin.total [Mass/volume] in Serum or Plasma <0.7 MG/DL 0.2 - 1.3 [facility] Alkaline phosphatase [Enzymatic activity/volume] in Serum or Plasma 62 U/L 38 - 126 [facility] Aspartate aminotransferase [Enzymatic activity/volume] in Serum or Plasma 302 U/L 5 - 40 H [facility] Alanine aminotransferase [Enzymatic activity/volume] in Seru m or Plasma 125 U/L 7 - 56 H [facility] Anion gap 3 in Serum or Plasma 10.0 mmol/L 8.0 - 16.0 [facility] AGE 34 yrs [facility] al NON-AA GFR >60 mL/min [facility] ital AFR AMER GFR >60 mL/min [facility] Male GFR In terprentation [...] >32 mL/min Normal ID Date Data Source [id number] 11/07/2019 02:27:00 AM EDT [facility] Name Value Range Interpretation Code Description Data [place] rce(s) Supporting Document(s) CBC W/AUTOMATED DIFF [facility] COMPLETE BLOOD COUNT Leukocytes [#/volume] in Blood by Automated count 8.3 10^3/uL 4.2 - 1 1.0 [facility] Erythrocytes [#/volume] in Blood by Automated count 3.87 10^6/uL 4. 20 - 5.40 L [facility] Hemoglobin [Mass/volume] in Blood 11.6 g/dL 12.0 - 16.0 L [facility] Hematocrit [Volume Fraction] of Blood by Automated count 36.0 % 3 7.0 - 47.0 L [facility] Erythrocyte mean corpuscular volume [Entitic volume] by Auto mated count 93.0 fL 81.0 - 101 [facility] Erythrocyte mean corpuscular hemoglobin [Entitic mass] by Automated count 30.0 pg 27.0 - 34.0 [facility] Erythrocyte mean corpuscular hemoglobin concentration [Mass/volume] by Automated count 32.2 g/dL 31.0 - 36.0 [facility] Erythrocyte distribution width [Ratio] by Automated count 13.3 % 11.5 - 14.5 [facility] Platelets [#/volume] in Blood by Automated count 271 10^3/uL 150 - 45 0 [facility] Platelet mean volume [Entitic volume] in Blood by Automated count 9.5 fL 7.4 - 10.4 [facility] Neutrophils/100 leukocytes in Blood by Automated count 82.6 % 37. 0 - 80.0 H [facility] Lymphocytes/100 leukocytes in Blood by Manual count 14.3 % 25.0 - 40.0 L [facility] Monocytes/100 leukocytes in Blood by Automated count 1.6 % 3.0 - 8.0 L [facility] Eosinophils/100 leukocytes in Blood by Automated count 0.8 % 0.0 - 7.0 [facility] Basophils/100 leukocytes in Blood by Automated count 0.2 % 0.0 - 2.5 [facility] %IG 0.5 % 0.0 - 0.0 [facility] Hospit al %NRBC 0.0 % 0.0 - 0.0 [facility] al Neutrophils [#/volume] in Blood by Automated count 6.85 10^3/uL 2.00 - 6.90 [facility] Lymphocytes [#/volume] in Blood by Automated count 1.19 10^3/uL 0.60 - 3.40 [facility] Monocytes [#/volume] in Blood by Automated count 0.13 10^3/uL 0.00 - 0.90 [facility] Eosinophils [#/volume] in Blood by Automated count 0.07 10^3/uL 0.00 - 0.70 [facility] Basophils [#/volume] in Blood by Automated count 0.02 10^3/uL 0.00 - 0.20 [facility] #IG 0.04 10^3/uL 0.00 - 0.10 [facility] ospital #NRBC 0.00 10^3/uL 0.00 - 0.00 [facility] ospital MANUAL DIFF NOT INDICATED [facility] RBC MORPH NOT INDICATED [facility] spital ID Date Data Source [id number] 11/07/2019 03:14:00 AM EDT [facility] Name Value Range Interpretation Code Description Data [place] rce(s) Supporting Document(s) DRUG SCREEN URINE [facility] URINE DRUG SCREEN Amphetamine [Presence] in Urine by Screen method PRESUMP POS LISANDRA L: NEGATIVE [facility] BARBITURATES NEGATIVE NORMAL: NEGATIVE [facility] BENZO NEGATIVE NORMAL: NEGATIVE [facility] COCAINE NEGATIVE NORMAL: NEGATIVE [facility] Tetrahydrocannabinol [Presence] in Urine NEGATIVE NORMAL: NEGATIVE [facility] OPIATES NEGATIVE NORMAL: NEGATIVE [facility] Phencyclidine [Presence] in Urine by Screen method NEGATIVE NOR MAL: NEGATIVE [facility] \\BLDo\\URINE DRUG SCR EEN INTERPRETATION\\BLDx\\ THE CUTOFFF LEVELS FOR DETECTION ARE FOLLOWS: AMPHETAMINES 1000 ng/ml BARBITUARATES 200 ng/ml BENZODIAZEPINES 100 ng/ml THC 50 ng/ml PHENCYCLIDINE 25 ng/ml OPIATES 300 ng/ml COCAINE 300 ng/ml ALL POSITIVES ARE CONSIDERED PRESUMPTIVE POSITIVE CONFIRMATION WILL BE PERFORMED AT PHYSICIAN REQUEST. ID Date Data Source [id number] 11/07/2019 02:27:00 AM EDT [facility] Name Value Range Interpretation Code Description Data [place] rce(s) Supporting Document(s) [facility] R [facility] COLOR yellow NORMAL: Yellow [facility] ospital CLARITY clear NORMAL: Clear [facility] Ho spital Specific gravity of Urine by Test strip 1.020 1.001 - 1.030 [facility] pH 6 5 - 9 [facility] Glucose [Mass/volume] in Urine by Test strip NORM NORMAL: Negat [facility] Bilirubin.total [Presence] in Urine by Test strip NEG NORMAL: Negative [facility] Ketones [Presence] in Urine by Test strip NEG NORMAL: Negative [facility] Protein [Mass/volume] in Urine by Test strip NEG NORMAL: [facility] Nitrite [Presence] in Urine by Test strip NEG NORMAL: Negative [facility] BLOOD NEG NORMAL: Negative [facility] Leukocyte esterase [Presence] in Urine by Test strip NEG LISANDRA L: Negative [facility] Urobilinogen [Mass/volume] in Urine by Test strip 1 less kenna n 1.0 mg/dL [facility] MICROSCOPIC Not Indicate [facility] H ospital ID Date Data Source [id number] 10/30/2019 10:27:00 AM EDT [facility] Name Value Range Interpretation Code Description Data [place] rce(s) Supporting Document(s) BG FASTING 132 mg/dL 70-100 H [facility] TSH 0.526 microintl units/mL 0.358-3.740 N [facility] ID Date Data Source [id number] 10/30/2019 10:27:00 AM EDT [facility] Name Value Range Interpretation Code Description Data [place] rce(s) Supporting Document(s) HCT 37.6 % 36.0-47.0 N [facility] HGB 11.8 g/dL 12.0-15.5 L [facility] MCH 31.4 G/DL pg 32.0-36.[address] [facility] MCHC 29.9 PG % 27.0-33.0 N [facility] PLATELETS 209 10 10*3/mm3 150-450 [facility] RBC 3.94 10 10*6/mm3 4.00-5.40 L [facility] RDW 12.6 % 11.5-14.5 [facility] WBC TOTAL 4.5 4.0-10.0 [facility] ID Date Data Source [id number] 10/13/2019 03:25:00 PM EDT [facility] Name Value Range Interpretation Code Description Data [place] rce(s) Supporting Document(s) HCT 40.7 % 36.0-47.0 [facility] HGB 13.3 g/dL 12.0-15.5 [facility] MCH 32.7 G/DL pg 32.0-36.5 [facility] MCHC 30.4 PG % 27.0-33.0 [facility] PLATELETS 288 10 10*3/mm3 150-450 N [facility] RBC 4.37 10 10*6/mm3 4.00-5.40 N [facility] RDW 12.4 % 11.5-14.5 [facility] WBC TOTAL 8.7 4.0-10.0 [facility] ID Date Data Source [id number] 10/09/2019 02:09:00 AM EDT [facility] 1 OrderSheet [facility] Emergency Department [address] [place] [address] Phone #: ext- [phone] 10/09/2019 02:08 Patient: [...] mg 03:29 10/09/2019 Ack'd: 03:34 Meme 03:39 Mememayra Narvaez X1 dose: 800 Evonne Anne R.N., R.N.mg (NOW x1) Jeremie;GENERAL ORDERSOrder Description Priority Entered Acknowledged Initialed[Electronically signed by Evonne Anne M.D. (03:51 10/09/2019)][Electronically signed by Meme Damon R.N. (07:29 10/09/2019)][Electronically locked by Meme Damon R.N. (07:29 10/09/2019)] Name Value Range Interpretation Code Description Data [place] rce(s) Supporting Document(s) ID Date Data Source [id number] 10/09/2019 02:09:00 AM EDT [facility] 1 Medication Reconciliation Report [facility] Emergency Department [address] [place] [address] Phone #: ext- [phone] 10/09/2019 02:08 [id number] Sex: F : 1985 Age: 34yWeight: 81.1 [...] Name Value Range Interpretation Code Description Data [facility] Supporting Document(s) ID Date Data Source [id number] 10/09/2019 02:09:00 AM EDT [facility] 1 Medication Administration Record [facility] Emergency Department [address] [place] [address] Phone #: ext- [phone] 10/09/2019 02:08 Patient: BRUNA LEE Sex: F : 1985 Age: 34yWeight: 81.1 kgHeight/Length: 60 inBMI: 34.9ALLERGIES: Penicillins, Sulfa Antibiotics Date/Time Medication Administered Medication OrderedGiven IBUPROFEN [PO] Ibuprofen 800 mg PO X1 dose: 00823:39 10/09/2019 Dose: 800 mg Tablets PO mg (NOW x1)Meme Maldonado R.N. Name Value Range Interpretation Code Description Data [facility] Supporting Document(s) ID Date Data Source [id number] 10/09/2019 02:09:00 AM EDT [facility] 1 General Instructions [facility] Emergency Department [address] [place] [address] Phone #: ext- [phone] 10/09/2019 02:08 Patient: [...] INFORMATIONViral Pharyngitis (Sore Throat) 2 General Instructions [facility] Emergency Department [address] [place] [address] Phone #: ext- [phone] 10/09/2019 02:08 Patient: [...] glass of warm water. 3 General Instructions [facility] Emergency Department [address] [place] [address] Phone #: ext- [phone] 10/09/2019 02:08 Patient: [...] breathing or noisy breathing 4 General Instructions [facility] Emergency Department [address] [place] [address] Phone #: ext- [phone] 10/09/2019 02:08 Patient: BRUNA LEE Sex: F : 1985 Age: 34y Muffled voice New rash Other symptoms are getting worse [phone] [employer]. [address] [place] [address]. All rights reserved. This information is not intended as asubstitute for professional medical care. Always follow your healthcare professional's instructions. You have been given the following additional information: Pharyngitis, Viral(Electronically signed by Evonne Anne M.D. 10/09/2019 03:51) Name Value Range Interpretation Code Description Data [place] rce(s) Supporting Document(s) ID Date Data Source [id number] 10/09/2019 02:09:00 AM EDT [facility] 1 Clinical Report - Nurses [facility] Emergency Department [address] [place] [address] Phone #: ext- [phone] 10/09/2019 02:08 Patient: BRUNA LEE Sex: F : 1985 Age: 34yTRIAGEHistorian: EMS and patient.Triage time: 02:08 10/09/2019.Chief Complaint: SORE THROAT.This started just prior to arrival. The patient has had a hoarse voice.Treatment STAFFING COORDINATOR:Took Tylenol. (arthritis kind).EMS Treatment STAFFING COORDINATOR:See EMS report.SEPSIS SCREEN: SIRS Screen: heart rate greater than 90. Sepsis Screen negative. No suspected orconfirmed signs of infection present. --02:14 10/09/19 Meme Maldonado R.N.02:11 10/09/19. BP: 130/86. MAP: 100. HR: 105. RR: 18. O2 saturation: 100%. Temp: 98.5 F. Pain levelnow: 12/05. --02:14 10/09/19 Meme Maldonado R.N.Treatment STAFFING COORDINATOR:(Seen at [facility] for this issue within the last few days, states that they could not figure out what was wrongwith her.). --02:28 10/09/19 Meme Maldonado R.N.Acuity: LEVEL 4.02:11 10/09/19. --07:29 10/09/19 Meme Maldonado R.N.Weight: 81.1 kg measured. Height/Length: 60 inches Per Patient. BMI: 34.9. --02:08 10/09/19 Meme Jordan R.N.MedicationsRisperDAL Oral. --02:15 10/09/19 Meem Maldonado R.N. Keppra Oral. --02:10/09/19 Meme Maldonado R.N. Strattera Oral. --02:10/09/19 Meme Maldonado R.N. Amitriptyline HCl Oral. --02:15 10/09/19 Meme Maldonado R.N. Gabapentin Oral. --02:15 10/09/19 Meme Maldonado R.N. Stomach pill, name unknown. --02:16 10/09/19 Meme Maldonado R.N. Suboxone Sublingual (Film 8-2 mg), daily. --02:10/09/19 Meme Maldonado R.N.AllergiesPenicillins.(hives) 2 Clinical Report - Nurses [facility] Emergency Department [address] [place] [address] Phone #: ext- [phone] 10/09/2019 02:08 Patient: [...] Dental decay. 3 Clinical Report - Nurses [facility] Emergency Department [address] [place] [address] Phone #: ext- [phone] 10/09/2019 02:08 Patient: [...] Patient verbalized understanding. Written instructions provided in Malagasy. The patient was discharged by the physician. [...] rce(s) Supporting Document(s) ID Date Data Source [id number] 10/09/2019 02:09:00 AM EDT [facility] 1 Clinical Report - Physicians/Mid Levels [facility] Emergency Department [address] [place] [address] Phone #: ext- [phone] 10/09/2019 02:08 Patient: [...] (per EMS, pt is well known to [facility] ER for multiple ER visits for multiple somatic and psychiatric complaints; tonight, she complains of sore throat, hoarse voice, bugs on her skin, etc.; pt has therapist in [place]). Similar symptoms previously. Patient has had similar [...] Medications: 2 Clinical Report - Physicians/Mid Levels [facility] Emergency Department [address] [place] [address] Phone #: ext- [phone] 10/09/2019 02:08 Patient: [...] PROCEDURAL CONTROL VALID ){ KIT LOT # [id number] ){ KIT EXP DATE [id number] )The 3 Clinical Report - Physicians/Mid Levels [facility] Emergency Department [address] [place] [address] Phone #: ext- [phone] 10/09/2019 02:08 Patient: [...] was requested by: Evonne Anne Reference #: [id number] Others' Prescriptions Patient Name: Burna LeeBirth Date: 1985 Address: [address] [place] [id number]: Female Rx Written Rx Dispensed Drug Quantity [...] J Mao MD Medicaid [facility] 06/27/2019 06/27/2019 buprenorphine-naloxone 8-2 mg sl film 56 28 MoehsJose J MD Medicaid [facility] 05/29/2019 05/30/2019 buprenorphine-naloxone 8-2 mg sl film 56 28 MoehsJose J MD [facility] 05/01/2019 05/01/2019 [...] #15 4 Clinical Report - Physicians/Mid Levels [facility] Emergency Department [address] [place] [address] Phone #: [phone]- [phone] 10/09/2019 02:08 Patient: BRUNA LEE Sex: F : 1985 Age: 34y 11/12/2018 11/12/2018 suboxone 8 mg-2 mg sl film 56 28 MoJose J hopson MD Medicaid [facility] 10/15/2018 10/15/2018 suboxone 8 mg-2 mg sl film 56 28 MoehJose J hopson MD Medicaid [facility] * - [...] unknown*. 5 Clinical Report - Physicians/Mid Levels [facility] Emergency Department [address] [place] [address] Phone #: ext- [phone] 10/09/2019 02:08 Patient: [...] Name Value Range Interpretation Code Description Data [facility] rce(s) Supporting Document(s) ID Date Data Source [id number] 10/09/2019 03:02:00 AM EDT [facility] Name Value Range Interpretation Code Description Data [facility] rce(s) Supporting Document(s) RAPID STREP NEGATIVE NORMAL: NEGATIVE [facility] RAPID STREP REENTER NEGATIVE NORMAL: NEGATIVE [facility] { PROCEDURAL CONTROL VALID ){ KIT LOT # [id number] ){ KIT EXP DATE 303520 )The Strep A 2 assay utilizes isothermal [...] basis for treatment. ID Date Data Source [id number] 09/22/2019 02:34:28 PM EDT [facility] [...] (ER) or urgent care clinic? Yes - [facility] Have you seen another healthcare provider? Yes - [facility] Have you seen a dentist? NoIntake [...] and this is different. [facility] her [facility] health issues (schizophrenia) and feels that this is going well.HPI performed by: Francesco Ritchie MD, September 22, 2019 2:52 PMTransitions of Care InboundProblem ReviewProblem List was reviewed and/or updated during this visit.Medication Reconciliation & ReviewMedication List was reviewed and/or updated during this visit, including review of any jnms-vah-jjxvhkl medications, herbal therapies, and/or supplements.Allergy ReviewAllergy List [...] Plan Problems:Added: Hematemesis - cause unknown (ICD-578.0) (BTL45-A23.0) Assessment: Instructions: Currently asymptomatic but worrisome enough to warrant further workup.Avoid NSAIDs and refer to GI.Return to ER if this occurs again.Assessed:Peripheral neuropathy (ICD-356.9) (BHO87-Z64.9) Assessment: Instructions: I am not sure where [...] (Critical)Orders:Adult - Ofc Vst, EST, Level III [CPT-14242] Gastroenterology Consult [CPT-63360] Medications:GABAPENTIN 400 MG ORAL CAPSULE (GABAPENTIN) take one tablet by mouth three times daily as needed #90[Capsule] x 0 Route:ORAL Entered and Authorized by: Francesco Ritchie MD Method used: Electronically to [facility] (retail) [address] [place] [address] Note to Pharmacy: Route: ORAL; Indications: PERIPHERAL NEUROPATHY;BILATERAL CARPAL TUNNEL SYNDROME RxID: [id number] 1000 MG ORAL TABLET (LEVETIRACETAM) 1 pill po bid #60[Tablet] x 0 Route:ORAL Entered and Authorized by: Francesco Ritchie MD Method used: Electronically to [facility] (retail) [address] [place] [address] Note to Pharmacy: Route: ORAL; RxID: [id number] SUCCINATE 50 MG ORAL TABLET (SUMATRIPTAN SUCCINATE) take one tab po at the onset of headache. may repeat dose x one if no releif after two hours. #15[Tablet] x 0 Entered and Authorized by: Francesco Ritchie MD Method used: Electronically to [facility] (retail) [address] [place] [address] RxID: [id number] OMEPRAZOLE 20 MG ORAL TABLET DELAYED RELEASE (OMEPRAZOLE) One tablet by mouth every day #30[Tablet] x 2 Route:ORAL Entered and Authorized by: Francesco Ritchie MD Method used: Electronically to [facility] (retail) [address] [place] [address] Note to Pharmacy: Route: ORAL; RxID: [id number] DOXYCYCLINE MONOHYDRATE 100 MG ORAL TABLET (DOXYCYCLINE MONOHYDRATE) take one tablet by mouth twice daily x 5 days #10[Tablet] x 0 Route:ORAL Entered by: Demetria Elliott MA Authorized by: Mavis DIEGO Method used: Electronically to [facility] (retail) [address] [place] [address] RxID: [id number] signed by Francesco Ritchie MD on 09/22/2019 at 5:42 PM Name Value Range Interpretation Code Description Data [place] rce(s) Supporting Document(s) ID Date Data Source [id number] 09/10/2019 10:45:00 PM EDT [facility] Name Value Range Interpretation Code Description Data [place] rce(s) Supporting Document(s) BG FASTING 96 mg/dL 70-100 N [facility] ID Date Data Source [id number] 09/10/2019 10:45:00 PM EDT [facility] Name Value Range Interpretation Code Description Data [place] rce(s) Supporting Document(s) HCT 37.4 % 36.0-47.0 N [facility] HGB 12.1 g/dL 12.0-15.5 N [facility] MCH 32.4 G/DL pg 32.0-36.5 N [facility] MCHC 30.2 PG % 27.0-33.0 N [facility] PLATELETS 244 10 10*3/mm3 150-450 N [facility] RBC 4.01 10 10*6/mm3 4.00-5.40 N [facility] RDW 12.8 % 11.5-14.5 N [facility] WBC TOTAL 4.9 4.0-10.0 [facility] ID Date Data Source [id number] 05/20/2019 11:42:55 AM EDT [facility] [...] you seen another healthcare provider? Yes - [facility] Have you seen a dentist? NoRate [...] during this visit, including review of any xuab-vfg-grqixvj medications, herbal therapies, and/or supplements.Allergy ReviewAllergy List [...] Problems:Added: Phlebitis and thrombophlebitis of unspecified site (XZY42-A80.9): right AC and right tibia Assessment: Instructions: May continue warm compresses 3-4 times daily as needed. Please try to keep extremities elevated. We have sent a prescription to your pharmacy today. Please take medication as prescribed. Please report any major side effects.Phlebitis and thrombophlebitis of unspecified site (WLP49-P19.9): right AC and right tibia Assessment: right foot and right forearmAssessed:Tobacco use (ICD-305.1) (ZZY75-X41.0) Assessment: Instructions: Please continue to try to quit smoking.Health Screening (ICD-V70.0) (NZO24-Q05.9) Assessment: Instructions: Fasting labs ordered for you today. Please return prior to your next visit to have labs drawn. Please fast for 8-10 hours prior.Substance abuse (ICD-305.90) (RKN94-Q33.10) Assessment: Instructions: Please try to avoid the [...] (Critical)BACTRIM (Critical)* SULFA ANTIBIOTICS (Critical)Orders:COMP METABOLIC PANEL [CPT-29182] CBC W/DIFF [CPT- 31493] HgBA1c [CPT-00554] LIPID PANEL [CPT-04122] TSH [CPT-05786] T-4 free [CPT- 37833] Vitamin D 250H Unspecified [CPT-27433] URINALYSIS [CPT-81741] VITAMIN B- 12 [CPT-69372] Folate (Folic Acid Serum) [CPT-01385] IRON [CPT-55446] Adult - Ofc Vst, EST, Level III [CPT-55012] Follow-Up Return to clinic: 2-3 weeks for follow up Additional Follow-Up: If symptoms worsen, please return to clinic or the ERClinical Visit Summary CompletedMedications:DOXYCYCLINE MONOHYDRATE 100 MG ORAL TABLET (DOXYCYCLINE MONOHYDRATE) take one tablet by mouth twice daily x 5 days #10[Tablet] x 0 Route:ORAL Entered and Authorized by: Mavis DIEGO Method used: Electronically to [facility] (retail) [address] [place] [address] Note to Pharmacy: Route: ORAL; Indications: PHLEBITIS AND THROMBOPHLEBITIS OF UNSPECIFIED SITE RxID: [id number] signed by Mavis DIEGO on 05/24/2019 at 11:37 PM ____ Name Value Range Interpretation Code Description Data [place] rce(s) Supporting Document(s) Procedure Social History Code Duration Value Status Description Data Source(s ) Smoking 03/30/2020 12:00:00 AM EST Current Smoker completed Curre nt Smoker eCW1 ([facility]) Smoking 03/30/2020 12:00:00 AM EST Current Smoker completed Curre nt Smoker eCW1 ([facility]) Smoking 03/30/2020 12:00:00 AM EST Current Smoker completed Curre nt Smoker eCW1 ([facility]) Smoking 03/30/2020 12:00:00 AM EST Current Smoker completed Curre nt Smoker eCW1 ([facility]) Smoking 03/30/2020 12:00:00 AM EST Current Smoker completed Curre nt Smoker eCW1 ([facility]) Smoking 03/30/2020 12:00:00 AM EST Current Smoker completed Curre nt Smoker eCW1 ([facility]) Smoking 03/30/2020 12:00:00 AM EST Current Smoker completed Curre nt Smoker eCW1 ([facility]) Smoking 03/30/2020 12:00:00 AM EST Current Smoker completed Curre nt Smoker eCW1 ([facility]) Smoking 03/01/2020 12:00:00 AM EST Current Smoker completed Curre nt Smoker eCW1 ([facility]) Smoking 03/01/2020 12:00:00 AM EST Current Smoker completed Curre nt Smoker eCW1 ([facility]) Smoking 03/01/2020 12:00:00 AM EST Current Smoker completed Curre nt Smoker eCW1 ([facility]) Smoking 02/18/2020 12:00:00 AM EST Current Smoker completed Curre nt Smoker eCW1 ([facility]) Smoking 12/24/2019 12:00:00 AM EDT Current Smoker completed Curre nt Smoker eCW1 ([facility]) Smoking 12/24/2019 12:00:00 AM EDT Current Smoker completed Curre nt Smoker eCW1 ([facility]) Smoking 12/24/2019 12:00:00 AM EDT Current Smoker completed Curre nt Smoker eCW1 ([facility]) Smoking 12/24/2019 12:00:00 AM EDT Current Smoker completed Curre nt Smoker eCW1 ([facility]) Smoking 12/24/2019 12:00:00 AM EDT Current Smoker completed Curre nt Smoker eCW1 ([facility]) Smoking 12/24/2019 12:00:00 AM EDT Current Smoker completed Curre nt Smoker eCW1 ([facility]) Smoking 12/24/2019 12:00:00 AM EDT Current Smoker completed Curre nt Smoker eCW1 ([facility]) Smoking 10/31/2019 12:00:00 AM EDT Current Smoker completed Curre nt Smoker eCW1 ([facility]) Smoking 10/31/2019 12:00:00 AM EDT Current Smoker completed Curre nt Smoker eCW1 ([facility]) Smoking 10/31/2019 12:00:00 AM EDT Current Smoker completed Curre nt Smoker eCW1 ([facility]) Vital Signs ID Date Data Source UNK Name Value Range Interpretation Code Description Data Source(s) Oxygen saturation in Arterial blood by Pulse oximetry 98 % 98 % eCW1 ([facility]) Respiratory rate 18 /min 18 /min eCW1 ([facility]) Heart rate 119 /min 119 /min eCW1 ([facility]) Body mass index (BMI) [Ratio] 35.74 kg/m2 35.74 kg/m2 eCW1 ([facility]) Body weight 183.0 [lb_av] 183.0 [lb_av] eCW1 ([facility]) Body height 60.0 [in_i] 60.0 [in_i] eCW1 ([facility]) Oxygen saturation in Arterial blood by Pulse oximetry 99 % 99 % eCW1 ([facility]) Respiratory rate 18 /min 18 /min eCW1 ([facility]) Heart rate 93 /min 93 /min eCW1 ([facility]) Body mass index (BMI) [Ratio] 35.27 kg/m2 35.27 kg/m2 eCW1 ([facility]) Body weight 180.6 [lb_av] 180.6 [lb_av] eCW1 ([facility]) Body height 60 [in_i] 60 [in_i] eCW1 ([facility]) Oxygen saturation in Arterial blood by Pulse oximetry 97 % 97 % eCW1 ([facility]) Respiratory rate 18 /min 18 /min eCW1 ([facility]) Heart rate 89 /min 89 /min eCW1 ([facility]) Body mass index (BMI) [Ratio] 36.48 kg/m2 36.48 kg/m2 eCW1 ([facility]) Body weight 186.8 [lb_av] 186.8 [lb_av] eCW1 ([facility]) Body height 60 [in_i] 60 [in_i] eCW1 ([facility]) Body height 60 [in_i] 60 [in_i] eCW1 ([facility]) Oxygen saturation in Arterial blood by Pulse oximetry 98 % 98 % eCW1 ([facility]) Respiratory rate 18 /min 18 /min eCW1 ([facility]) Heart rate 86 /min 86 /min eCW1 ([facility]) Body temperature 98.0 [degF] 98.0 [degF] eCW1 ( [facility]) Body mass index (BMI) [Ratio] 32.10 kg/m2 32.10 kg/m2 eCW1 ([facility]) Body weight 164.4 [lb_av] 164.4 [lb_av] eCW1 ([facility]) Oxygen saturation in Arterial blood by Pulse oximetry 99 % 99 % eCW1 ([facility]) Respiratory rate 18 /min 18 /min eCW1 ([facility]) Heart rate 100 /min 100 /min eCW1 ([facility]) Body temperature 98.7 [degF] 98.7 [degF] eCW1 ( [facility]) Body mass index (BMI) [Ratio] 30.70 kg/m2 30.70 kg/m2 eCW1 ([facility]) Body weight 157.2 [lb_av] 157.2 [lb_av] eCW1 ([facility]) Body height 60 [in_i] 60 [in_i] eCW1 ([facility]) ID Date Data Source [id number] 12/26/2019 01:56:00 PM EDT [facility] Name Value Range Interpretation Code Description Data Source(s) WEIGHT 72.3 kilos 72.3 kilos [facility] HEIGHT 152.4 centimeters 152.4 centimeters [facility] WEIGHT 75 kilos 75 kilos [facility] HEIGHT 152.4 centimeters 152.4 centimeters [facility] ID Date Data Source [id number] 12/10/2019 06:07:00 AM EDT [facility] Name Value Range Interpretation Code Description Data Source(s) WEIGHT 68 kilos 68 kilos [facility] HEIGHT 152.4 centimeters 152.4 centimeters [facility] WEIGHT 68.4 kilos 68.4 kilos [facility] HEIGHT 152.4 centimeters 152.4 centimeters [facility] ID Date Data Source [id number] 12/08/2019 01:43:00 PM EDT [facility] Name Value Range Interpretation Code Description Data Source(s) WEIGHT 75 kilos 75 kilos [facility] HEIGHT 152.4 centimeters 152.4 centimeters [facility] ID Date Data Source [id number] 12/08/2019 01:43:00 PM EDT [facility] Name Value Range Interpretation Code Description Data Source(s) WEIGHT 74 kilos 74 kilos [facility] HEIGHT 160.02 centimeters 160.02 centimeter s [facility] Patient Treatment Plan of Care Planned Activity Planned Date Details Description Data Source (s) Doxepin Hydrochloride 25 MG Oral Capsule 03/09/2020 12:00:00 AM EST eCW1 ([facility]) Doxepin Hydrochloride 25 MG Oral Capsule 03/09/2020 12:00:00 AM EST eCW1 ([facility]) Doxepin Hydrochloride 25 MG Oral Capsule 03/09/2020 12:00:00 AM EST eCW1 ([facility]) Clonidine Hydrochloride 0.2 MG Oral Tablet 12/24/2019 12:00:00 AM E DT eCW1 ([facility]) Clonidine Hydrochloride 0.2 MG Oral Tablet 12/24/2019 12:00:00 AM E DT eCW1 ([facility]) Clonidine Hydrochloride 0.2 MG Oral Tablet 12/24/2019 12:00:00 AM E DT eCW1 ([facility]) Clonidine Hydrochloride 0.2 MG Oral Tablet 12/24/2019 12:00:00 AM E DT eCW1 ([facility]) Clonidine Hydrochloride 0.2 MG Oral Tablet 12/24/2019 12:00:00 AM E DT eCW1 ([facility]) Clonidine Hydrochloride 0.2 MG Oral Tablet 12/24/2019 12:00:00 AM E DT eCW1 ([facility]) Clonidine Hydrochloride 0.2 MG Oral Tablet 12/24/2019 12:00:00 AM E DT eCW1 ([facility]) lisdexamfetamine dimesylate 50 MG Oral Capsule [Vyvans e] 11/04/2019 12:00:00 AM EDT eCW1 ([facility]) Clonazepam 0.5 MG Oral Tablet 11/04/2019 12:00:00 AM EDT eCW1 ([facility]) Citalopram 20 MG Oral Tablet [Celexa] 11/04/2019 12:00:00 AM EDT eCW1 ([facility]) Risperidone 3 MG Oral Tablet [Risperdal] 07/07/2019 12:00:00 AM EDT eCW1 ([facility]) Risperidone 3 MG Oral Tablet [Risperdal] 07/07/2019 12:00:00 AM EDT eCW1 ([facility]) Risperidone 2 MG Oral Tablet [Risperdal] 07/07/2019 12:00:00 AM EDT eCW1 ([facility]) Risperidone 2 MG Oral Tablet [Risperdal] 07/07/2019 12:00:00 AM EDT eCW1 ([facility]) Risperidone 3 MG Oral Tablet [Risperdal] 07/07/2019 12:00:00 AM EDT eCW1 ([facility])
--- NOTE | 2020-04-22 17:15 | MHHPEPDOC ---
General Date Of Admission: Apr 22, 2020 Legal Status: 9.39 Chief Complaint My friend filled me with blood thinners " History of Present Illness HISTORY OF THE PRESENT ILLNESS: Patient is a 34 -year-old , female, who has had numerous repetitive visits to the emergency room's 5-6 times in February 8 times in March. Her symptoms are almost exactly of her last admission, numerous somatic complaints and numerous visits to the ER. Her toxicology screen is positive for amphetamines, benzodiazepines, cannabis, methamphetamine. She states she has a rash on her back and in her mouth is killing her. She appears sedated, as she did on her last admission and her entire hospital stay. She is drowsy, with poor eye contact. She states she lives in [place] apartment with her mother and sister. She has had one episode of surgery for hernia. She has numerous arrests for assault and other charges. She states she has a high school education. She has not been employed. Her psychiatric history is positive for a previous admission and numerous emergency department visits. She had the same paranoid ideas in the past and on this admission. She said her belly is bleeding and that she got leukemia from her family. She used Catie yesterday. Psychiatric Review of Systems Depression (2 or more weeks): insomnia/hypersomnia, difficulty concentrating Bell (4 or more days of): denies Psychosis: denies PTSD: denies Anxiety: denies Anxiety/ 6 months or more of: difficulty concentrating Past Psychiatric History Previous Psychiatric Diagnosis: Atypical psychotic disorder, polysubstance abuse. Previous Psychiatric Admissions:. Review of submission for them. A year ago. Same presentation. Suicide Attempts:, None noted. Psychiatric Follow-up:. Follow-up was arranged, but compliance is unclear. Psychiatric medications:. Numerous medications prescribed but patient not taking. Past Medical History Medical Problems Numerous medical concerns. Some described as psychosomatic. Will await hospitalist on this question Head Injury: No Seizures: No Hospitalizations: No Family Medical/Psychiatric HX Medical Problems No information at this time Psychiatric Disorders: No Addiction: No Suicide Attemps/Completions: No Addiction History cocaine, ecstasy, amphetamines, opioids, methamphetamines, heroin Social History Childhood: No information at this time. Abuse/Trauma:. Information at this time. Current Living Situation:. Mother and sister. Education:. High school education. Employment:. Employment history. Social Support:. Supposedly, mother and sister. Legal: Numerous legal troubles. Marital:, Single. Mental Status Examination Build: average Demeanor: withdrawn, preoccupied Eye Contact: poor Activity: slowed Behavior: cooperative Speech: slurred, low in volume Mood: euthymic Affect: constricted Thought Process: incoherent, depressed, slow Thought Content (Delusions): persecutory, paranoia Thought Content (Aggressive): none reported Perception (Hallucinations): none reported Perception (Other): none reported Cognition (Impairment of): attention/concentration, ability to abstract Insight: poor Judgment: Poor Psychosis: Denies Diagnoses Polysubstance abuse A-FIB/CHADSVASC A-FIB History Current/History of A-Fib/PAF?: No Current PO Anticoag Therapy: No Age/Risk Factor Scoring CHADSVASC: CHADSVASC Response (Comments) Value Age Risk Factor Age < 65 years old 0 Gender Risk Factor Female 1 Hx of CHF No 0 Hx of HTN No 0 Hx of Stroke/TIA/or VTE No 0 Hx of Diabetes No 0 Hx of Vascular Disease No 0 Total 1 Treatment Treatment ordered: NONE Initial Treatment Plan 1. Patient was admitted on a [9.39] status. 2. Complete history was obtained. 3. With patients permission, family will be contacted and database will be expanded. 4. Patients medication regimen will be reviewed and changed accordingly. 5. Patient will be provided with protected environment. 6. Patient will be treated with individual, group, and milieu therapies. 7. Patient will receive supportive psych-education. 8. Discharge planning will commence immediately. 9. Outpatient follow-up treatment will be strongly recommended. 10. The initial treatment plan will focus initially on: * Depression. * Risk for suicide. ESTIMATED LENGTH OF STAY: - DAYS. TIME SPENT COUNSELING AND COORDINATING INITIAL CARE: minutes. Vital Signs Vital Signs Date Time Temp Pulse Resp B/P (MAP) Pulse Ox O2 Delivery O2 Flow Rate FiO2 04/22/20 12:52 97.0 121 20 125/86 (99) 99 04/22/20 06:30 Room Air Laboratory Data 24H Labs Laboratory Tests 2 04/21/20 17:41: Coronavirus (COVID-19)(PCR) NEGATIVE Medications Scheduled Amitriptyline HCl (Amitriptyline HCl) 50 Mg Tablet, 50 MG PO QHS, (Reported) Buprenorphine HCl/Naloxone HCl (Suboxone 8 mg-2 mg Sl Film) 1 Each Film, 2 STRIP SL DAILY, (Reported) Chlorhexidine Gluconate (Chlorhexidine Gluconate) 473 Ml Mouthwash, 15 ML SSP BID, (Reported) Citalopram Hydrobromide (Citalopram HBr) 20 Mg Tablet, 20 MG PO DAILY, (Reported) Doxepin HCl (Doxepin HCl) 25 Mg Capsule, 25 MG PO QHS, (Reported) Gabapentin (Gabapentin) 400 Mg Capsule, 400 MG PO TID, (Reported) Levetiracetam (Keppra) 1,000 Mg Tab, 1,000 MG PO BID, (Reported) Loratadine (Loratadine) 10 Mg Tablet, 10 MG PO DAILY, (Reported) Omeprazole (Omeprazole) 20 Mg Capsule.dr, 20 MG PO DAILY, (Reported) Risperidone (Risperidone) 3 Mg Tablet, 3 MG PO BID, (Reported) Scheduled PRN Clonidine HCl (Clonidine HCl) 0.2 Mg Tablet, 0.2 MG PO TID PRN for ANXIETY, (Reported) Ketorolac Tromethamine (Ketorolac Tromethamine) 10 Mg Tablet, 10 MG PO Q6H PRN for PAIN, (Reported) Sumatriptan Succinate (Imitrex) 50 Mg Tablet, 50 MG PO DAILY PRN for MIGRAINE, (Reported) Allergies Coded Allergies: Penicillins (Verified Allergy, Unknown, 01/09/20) dextroamphetamine (Verified Allergy, Unknown, 01/09/20) haloperidol (Verified Allergy, Unknown, 01/09/20) olanzapine (Verified Allergy, Unknown, 01/09/20) sulfamethoxazole (Verified Allergy, Unknown, 01/09/20) trimethoprim (Verified Allergy, Unknown, 01/09/20) ziprasidone (Verified Allergy, Unknown, 01/09/20) ibuprofen (Unverified Adverse Reaction, Unknown, 01/09/20) Prefers stronger meds BIMAL BURGESS MD Apr 22, 2020 17:15
[2020-04-22] MEDS: AMITRIPTYLINE 50 MG TAB PO SCH (21:22)
[2020-04-22] MEDS: traZODone 50 MG TAB PO PRN (21:22)
[2020-04-22] MEDS: levETIRAcetam 250MG TABLET (KEPPRA) PO SCH (21:22)
[2020-04-23 06:02] VITALS: BP 99/49
[2020-04-23] MEDS ORDERED: BUPRENORPHINE/NALOXONE 8-2MG SUBLINGUAL TABLET(SUBOXONE) SL SCH (09:00)
[2020-04-23] MEDS: CitaloPRAM (CeleXA) 20 MG TAB PO SCH (10:18)
[2020-04-23] MEDS: LORATADINE 10 MG TAB PO SCH (10:18)
[2020-04-23] MEDS: OMEPRAZOLE 20 MG CAP PO SCH (10:18)
[2020-04-23] MEDS: GABAPENTIN 300 MG CAP PO SCH ×3 (10:19→20:25)
[2020-04-23] MEDS: levETIRAcetam 250MG TABLET (KEPPRA) PO SCH ×2 (10:19→20:26)
--- NOTE | 2020-04-23 12:18 | MHIPNPDOC ---
[facility] Progress Note Progress Note DATE OF SERVICE: 04/23/20 HISTORY: 34-year-old female with numerous admissions admitted and sedated state after having taken numerous drugs. VITAL SIGNS: See below. NEW TEST RESULTS:. No new test results extensive toxicology screen results. CURRENT MEDICATIONS: See below. MENTAL STATUS EXAMINATION: Patient is a 34-year old female, who is awake, at approximately 11:00, screaming and yelling at staff. Speech: Is, cursing and yelling. Language skills are intact. Thought processes including: Demanding her Suboxone. Thought content: Demanding her Suboxone. Abstract reasoning, and computation: Apparently can abstract. Description of associations:. No loose association. Description of abnormal or psychotic thoughts:. No abnormal psychotic thoughts. Judgment: Poor. Insight:, Poor. Orientation: 3. Recent and remote memory: Not measured. Attention span and concentration: Poor. Language: Intact. Fund of knowledge: Full. Mood: Irritable. Affect: Irritable, angry. DIAGNOSES: 1. Substance dependence and abuse. 2., Personality disorder. 3. None. ASSESSMENT: As above MANAGEMENT PLAN:. Staff tells me as well as past notes inform me that patient varies from sedated to irritable. TIME SPENT: 30 minutes. Vital Signs Vital Signs Date Time Temp Pulse Resp B/P (MAP) Pulse Ox O2 Delivery O2 Flow Rate FiO2 04/23/20 06:02 98.0 75 18 99/49 (66) 95 Room Air Current Medications Current Medications Medications (Trade) Dose Ordered Sig/Carlos Route PRN Reason Start Time Stop Time Status Last Admin Dose Admin Al Hydrox/Mg Hydrox/Simethicone (Mylanta) 30 ml Q4HP PRN PO HEARTBURN/INDIGESTION 04/22/20 12:10 Amitriptyline HCl (Elavil) 50 mg QHS PO 04/22/20 21:00 04/22/20 21:22 Buprenorphine/ Naloxone (Suboxone 8/2mg) 1 tab DAILY SL 04/22/20 09:00 04/22/20 15:03 DC 04/22/20 09:14 Buprenorphine/ Naloxone (Suboxone 8/2mg) 1 tab DAILY SL 04/23/20 09:00 04/23/20 10:41 Citalopram Hydrobromide (CeleXA) 20 mg DAILY PO 04/22/20 09:00 04/22/20 12:30 DC 04/22/20 09:16 Citalopram Hydrobromide (CeleXA) 20 mg DAILY PO 04/23/20 09:00 04/23/20 10:18 Clonidine HCl (Catapres) 0.2 mg TID PRN PO ANXIETY 04/22/20 12:10 Clonidine HCl (Catapres) 0.2 mg TIDP PO 04/22/20 09:20 04/22/20 09:46 DC 04/22/20 09:25 Clonidine HCl (Catapres) 0.2 mg TIDP PRN PO ANXIETY 04/22/20 09:46 04/22/20 12:31 DC Gabapentin (Neurontin) 600 mg TID PO 04/22/20 09:00 04/23/20 10:19 Home Med (Med Rec Complete!) ASDIRECTED XX 04/22/20 10:00 04/22/20 10:00 DC Ketorolac Tromethamine (ToRADol) 10 mg Q6H PRN PO PAIN 04/22/20 12:10 04/27/20 12:09 Levetiracetam (Keppra) 1,000 mg BID PO 04/22/20 09:00 04/22/20 12:31 DC 04/22/20 09:15 Levetiracetam (Keppra) 1,000 mg BID PO 04/22/20 21:00 04/23/20 10:19 Loratadine (Claritin) 10 mg DAILY PO 04/22/20 09:00 04/22/20 12:32 DC 04/22/20 09:15 Loratadine (Claritin) 10 mg DAILY PO 04/23/20 09:00 04/23/20 10:18 Lorazepam (Ativan) 1 mg BIDP PRN PO ANXIETY/AGITATION 04/22/20 12:10 Lorazepam (Ativan) 2 mg STAT STAT PO 04/21/20 02:05 04/21/20 02:07 DC Magnesium Hydroxide (Milk Of Magnesia) 30 ml DAILYPRN PRN PO CONSTIPATION 04/22/20 12:10 Omeprazole (PriLOSEC) 20 mg DAILY PO 04/22/20 09:00 04/22/20 12:32 DC 04/22/20 09:15 Omeprazole (PriLOSEC) 20 mg DAILY PO 04/23/20 09:00 04/23/20 10:18 Risperidone (RisperDAL) 3 mg DAILY PO 04/22/20 09:00 04/22/20 12:33 DC 04/22/20 09:16 Risperidone (RisperDAL) 3 mg QHS PO 04/23/20 21:00 Sumatriptan Succinate (Imitrex) 50 mg DAILY PRN PO MIGRAINE 04/22/20 12:10 Trazodone HCl (Desyrel) 50 mg QHSP PRN PO INSOMNIA 04/22/20 12:10 04/22/20 21:22 Allergies Coded Allergies: Penicillins (Verified Allergy, Unknown, 01/09/20) dextroamphetamine (Verified Allergy, Unknown, 01/09/20) haloperidol (Verified Allergy, Unknown, 01/09/20) olanzapine (Verified Allergy, Unknown, 01/09/20) sulfamethoxazole (Verified Allergy, Unknown, 01/09/20) trimethoprim (Verified Allergy, Unknown, 01/09/20) ziprasidone (Verified Allergy, Unknown, 01/09/20) ibuprofen (Unverified Adverse Reaction, Unknown, 01/09/20) Prefers stronger meds BIMAL BURGESS MD Apr 23, 2020 12:18
[2020-04-23 17:35] VITALS: BP 104/57
[2020-04-23 20:15] VITALS: BP 131/69
[2020-04-23] MEDS: LORazepam 1 MG TAB PO PRN (20:25)
[2020-04-23] MEDS: traZODone 50 MG TAB PO PRN (20:25)
[2020-04-23] MEDS: risperiDONE 3 MG TAB PO SCH (20:26)
[2020-04-23] MEDS: AMITRIPTYLINE 50 MG TAB PO SCH (20:26)
[2020-04-23] MEDS: BUPRENORPHINE/NALOXONE 8-2MG SUBLINGUAL TABLET(SUBOXONE) SL SCH (20:40)
[2020-04-23] MEDS: cloNIDine 0.2 MG TAB PO PRN (22:16)
[2020-04-24 06:32] VITALS: BP 114/68
[2020-04-24] MEDS: levETIRAcetam 250MG TABLET (KEPPRA) PO SCH ×2 (09:19→20:15)
[2020-04-24] MEDS: LORATADINE 10 MG TAB PO SCH (09:20)
[2020-04-24] MEDS: BUPRENORPHINE/NALOXONE 8-2MG SUBLINGUAL TABLET(SUBOXONE) SL SCH ×2 (09:20→20:17)
[2020-04-24] MEDS: CitaloPRAM (CeleXA) 20 MG TAB PO SCH (09:20)
[2020-04-24] MEDS: OMEPRAZOLE 20 MG CAP PO SCH (09:20)
[2020-04-24] MEDS: GABAPENTIN 300 MG CAP PO SCH ×3 (09:20→20:15)
--- NOTE | 2020-04-24 15:03 | HPEPDOC ---
General Date of Admission Apr 22, 2020 at 13:05 Date of Service: Apr 24, 2020 Chief Complaint The patient is a 34-year-old female admitted with a reason for visit of Unspecified Psychotic Disorder. Source: Patient, RN/MD History of Present Illness 34 year old female admitted to [facility] for unspecified psychotic disorder after using drugs. Her toxicology screen is positive for amphetamines, benzodiazepines, cannabis, methamphetamine and opiates. She was very somnolent walking with eyes half shut having some disbalance. As per nurses has been sleeping since admission. She had various complaints. Most prominent was pain all over . Her hands were painful, her legs were painful and crmping, her back and joints were hurting. She reports that she has been having so much pain that her subaxone was not helping so she started using dope after being clean for 10 years. She also complains of rash on her back which was itching and was bothering her too much. She then complained of left tragus pain. She rated her various hoint pains at 5/10 adn sais they were dull aching in nature. He muscles were aching also. Home Medications Scheduled Amitriptyline HCl (Amitriptyline HCl) 50 Mg Tablet, 50 MG PO QHS, (Reported) Buprenorphine HCl/Naloxone HCl (Suboxone 8 mg-2 mg Sl Film) 1 Each Film, 2 STRIP SL DAILY, (Reported) Chlorhexidine Gluconate (Chlorhexidine Gluconate) 473 Ml Mouthwash, 15 ML SSP BID, (Reported) Citalopram Hydrobromide (Citalopram HBr) 20 Mg Tablet, 20 MG PO DAILY, (Reported) Doxepin HCl (Doxepin HCl) 25 Mg Capsule, 25 MG PO QHS, (Reported) Gabapentin (Gabapentin) 400 Mg Capsule, 400 MG PO TID, (Reported) Levetiracetam (Keppra) 1,000 Mg Tab, 1,000 MG PO BID, (Reported) Loratadine (Loratadine) 10 Mg Tablet, 10 MG PO DAILY, (Reported) Omeprazole (Omeprazole) 20 Mg Capsule.dr, 20 MG PO DAILY, (Reported) Risperidone (Risperidone) 3 Mg Tablet, 3 MG PO BID, (Reported) Scheduled PRN Clonidine HCl (Clonidine HCl) 0.2 Mg Tablet, 0.2 MG PO TID PRN for ANXIETY, (Reported) Ketorolac Tromethamine (Ketorolac Tromethamine) 10 Mg Tablet, 10 MG PO Q6H PRN for PAIN, (Reported) Sumatriptan Succinate (Imitrex) 50 Mg Tablet, 50 MG PO DAILY PRN for MIGRAINE, (Reported) Allergies Coded Allergies: Penicillins (Verified Allergy, Unknown, 01/09/20) dextroamphetamine (Verified Allergy, Unknown, 01/09/20) haloperidol (Verified Allergy, Unknown, 01/09/20) olanzapine (Verified Allergy, Unknown, 01/09/20) sulfamethoxazole (Verified Allergy, Unknown, 01/09/20) trimethoprim (Verified Allergy, Unknown, 01/09/20) ziprasidone (Verified Allergy, Unknown, 01/09/20) ibuprofen (Unverified Adverse Reaction, Unknown, 01/09/20) Prefers stronger meds Past Medical History Medical History COVID positive on 02/29/20 C diff infection 03/20/20 Strep throat on 04/09/20 Depression/Anxiety Polysubstance abuse IV drug abuse Hepatitis C Migraine Schizoaffective disorder Seizure disorder Surgical History Hernia Repair Family History Father: Cirrhosis Mother: Lupus Social History * Smoker: current smoker Alcohol: occationally Drugs: IV drug use, other (ethamphetamine) A-FIB/CHADSVASC A-FIB History Current/History of A-Fib/PAF?: No Review of Systems Constitutional: Reports: Weakness, Fatigue; Denies: Chills, Fever, Night Sweats Eyes: Denies: Pain, Vision change ENT: Reports: Ear Pain Cardiovascular: Denies: Chest Pain, Palpitations, Orthopnea, Paroxysmal Noc. Dyspnea, Lt Headedness Gastrointestinal: Denies: Nausea, Vomiting, Abdominal Pain, Diarrhea Genitourinary: Denies: Dysuria, Frequency, Incontinence, Retention Musculoskeletal: Reports: Back Pain, Hand Pain, Leg Pain, Foot Pain, Muscle Pain Physical Examination General Exam: Positive: Cooperative, No Acute Distress, Other (somnolent. ) Eye Exam: Positive: PERRLA, Conjunctiva & lids normal, EOMI; Negative: Sclera icteric ENT Exam: Positive: Atraumatic, Mucous membr. moist/pink, Pharynx Normal Neck Exam: Positive: Supple; Negative: JVD, thyromegaly Chest Exam: Positive: Clear to auscultation, Normal air movement Heart Exam: Positive: Rate Normal, Regular Rhythm, Normal S1, Normal S2; Negative: Murmurs, Rubs Abdomen Exam: Positive: Normal bowel sounds, Soft; Negative: Tenderness, Hepatospenomegaly Extremity Exam: Positive: Swelling (of both hands. ) Skin Exam: Positive: Other skin issue (track rodriguez in the skin) Vital Signs Vital Signs Date Time Temp Pulse Resp B/P (MAP) Pulse Ox O2 Delivery O2 Flow Rate FiO2 04/23/20 06:02 98.0 75 18 99/49 (66) 95 Room Air Assessment/Plan 34 year old female admitted to [facility] for unspecified psychotic disorder after using drugs. Her toxicology screen is positive for amphetamines, benzodiazepines, cannabis, methamphetamine and opiates. She is being medically examined here today. Pain in different joints and muscles No limitation in movement anywhere. tylenol and ketorolac prn Also on suaboxone, gabapentin and amitriptilline. Rash on back probably from heat and sweat will give triamcinolone Seizure disorder on keppra Migraine Imitrex prn GERD on PPI. Mildly depressed TSh will get Free T3 and Free T4 levels. Plan / VTE VTE Prophylaxis Ordered?: No RAMONE MADDEN MD Apr 23, 2020 13:57
[2020-04-24] MEDS ORDERED: ACETAMINOPHEN 500 MG TAB PO PRN (16:15)
[2020-04-24] MEDS: cloNIDine 0.2 MG TAB PO PRN (16:27)
--- NOTE | 2020-04-24 16:36 | MHIPNPDOC ---
[facility] Progress Note Progress Note DATE OF SERVICE: 04/24/20 HISTORY: 34-year-old with extensive drug history and behavioral difficulties, as well as past hospitalizations. VITAL SIGNS: See below. NEW TEST RESULTS: None. CURRENT MEDICATIONS: See below. MENTAL STATUS EXAMINATION: Patient is a. 34-year old female, who is admitted in sedated condition with extensive drugs on tox screen Speech: Is intact. Language skills are, intact. Thought processes including: In pain. Patient states. Thought content: As above. Abstract reasoning, and computation:. [place]. Description of associations:. No loose association. Description of abnormal or psychotic thoughts:. No psychotic thoughts. Judgment:, Poor. Insight:, Poor. Orientation: 3. Recent and remote memory: Intact. Attention span and concentration: Reasonable. Language:. No difficulties noted. Fund of knowledge:. Limited. Mood: Euthymic. Affect:, Congruent. DIAGNOSES: 1. Polysubstance abuse. 2.. Atypical affective disorder. 3. None. ASSESSMENT: As above MANAGEMENT PLAN:. As per Liberty Holliday at the. TIME SPENT: 30 minutes. Vital Signs Vital Signs Date Time Temp Pulse Resp B/P (MAP) Pulse Ox O2 Delivery O2 Flow Rate FiO2 04/24/20 06:32 97.8 83 12 114/68 (83) 92 04/23/20 20:15 Room Air Current Medications Current Medications Medications (Trade) Dose Ordered Sig/Carlos Route PRN Reason Start Time Stop Time Status Last Admin Dose Admin Al Hydrox/Mg Hydrox/Simethicone (Mylanta) 30 ml Q4HP PRN PO HEARTBURN/INDIGESTION 04/22/20 12:10 Amitriptyline HCl (Elavil) 25 mg QHS PO 04/24/20 21:00 Amitriptyline HCl (Elavil) 50 mg QHS PO 04/22/20 21:00 04/24/20 08:17 DC 04/23/20 20:26 Buprenorphine/ Naloxone (Suboxone 8/2mg) 1 tab BID SL 04/23/20 21:00 04/24/20 09:20 Buprenorphine/ Naloxone (Suboxone 8/2mg) 1 tab DAILY SL 04/22/20 09:00 04/22/20 15:03 DC 04/22/20 09:14 Buprenorphine/ Naloxone (Suboxone 8/2mg) 1 tab DAILY SL 04/23/20 09:00 04/23/20 20:35 DC 04/23/20 10:41 Citalopram Hydrobromide (CeleXA) 20 mg DAILY PO 04/22/20 09:00 04/22/20 12:30 DC 04/22/20 09:16 Citalopram Hydrobromide (CeleXA) 20 mg DAILY PO 04/23/20 09:00 04/24/20 09:20 Clonidine HCl (Catapres) 0.2 mg TID PRN PO ANXIETY 04/22/20 12:10 04/23/20 22:16 Clonidine HCl (Catapres) 0.2 mg TIDP PO 04/22/20 09:20 04/22/20 09:46 DC 04/22/20 09:25 Clonidine HCl (Catapres) 0.2 mg TIDP PRN PO ANXIETY 04/22/20 09:46 04/22/20 12:31 DC Gabapentin (Neurontin) 600 mg TID PO 04/22/20 09:00 04/24/20 09:20 Home Med (Med Rec Complete!) ASDIRECTED XX 04/22/20 10:00 04/22/20 10:00 DC Ketorolac Tromethamine (ToRADol) 10 mg Q6H PRN PO PAIN 04/22/20 12:10 04/27/20 12:09 Levetiracetam (Keppra) 1,000 mg BID PO 04/22/20 09:00 04/22/20 12:31 DC 04/22/20 09:15 Levetiracetam (Keppra) 1,000 mg BID PO 04/22/20 21:00 04/24/20 09:19 Loratadine (Claritin) 10 mg DAILY PO 04/22/20 09:00 04/22/20 12:32 DC 04/22/20 09:15 Loratadine (Claritin) 10 mg DAILY PO 04/23/20 09:00 04/24/20 09:20 Lorazepam (Ativan) 1 mg BIDP PRN PO ANXIETY/AGITATION 04/22/20 12:10 04/23/20 20:25 Lorazepam (Ativan) 2 mg STAT STAT PO 04/21/20 02:05 04/21/20 02:07 DC Magnesium Hydroxide (Milk Of Magnesia) 30 ml DAILYPRN PRN PO CONSTIPATION 04/22/20 12:10 Omeprazole (PriLOSEC) 20 mg DAILY PO 04/22/20 09:00 04/22/20 12:32 DC 04/22/20 09:15 Omeprazole (PriLOSEC) 20 mg DAILY PO 04/23/20 09:00 04/24/20 09:20 Risperidone (RisperDAL) 3 mg DAILY PO 04/22/20 09:00 04/22/20 12:33 DC 04/22/20 09:16 Risperidone (RisperDAL) 3 mg QHS PO 04/23/20 21:00 04/23/20 20:26 Sumatriptan Succinate (Imitrex) 50 mg DAILY PRN PO MIGRAINE 04/22/20 12:10 Trazodone HCl (Desyrel) 50 mg QHSP PRN PO INSOMNIA 04/22/20 12:10 04/23/20 20:25 Allergies Coded Allergies: Penicillins (Verified Allergy, Unknown, 01/09/20) dextroamphetamine (Verified Allergy, Unknown, 01/09/20) haloperidol (Verified Allergy, Unknown, 01/09/20) olanzapine (Verified Allergy, Unknown, 01/09/20) sulfamethoxazole (Verified Allergy, Unknown, 01/09/20) trimethoprim (Verified Allergy, Unknown, 01/09/20) ziprasidone (Verified Allergy, Unknown, 01/09/20) ibuprofen (Unverified Adverse Reaction, Unknown, 01/09/20) Prefers stronger meds BIMAL BURGESS MD Apr 24, 2020 16:36
[2020-04-24 16:57] VITALS: BP 147/63
[2020-04-24] MEDS: AMITRIPTYLINE 25MG TABLET PO SCH (20:14)
[2020-04-24] MEDS: risperiDONE 3 MG TAB PO SCH (20:15)
[2020-04-24] MEDS: LORazepam 1 MG TAB PO PRN (20:15)
[2020-04-24] MEDS: TRIAMCINOLONE ACET 0.1% CREAM 80 GM TOP SCH (20:17)
[2020-04-25 06:54] VITALS: BP 127/57
[2020-04-25] MEDS: KETOROLAC TROMETHAMINE 10 MG TAB PO PRN ×2 (07:12→15:39)
[2020-04-25] MEDS: cloNIDine 0.2 MG TAB PO PRN (07:15)
[2020-04-25] MEDS: OMEPRAZOLE 20 MG CAP PO SCH (08:06)
[2020-04-25] MEDS: CitaloPRAM (CeleXA) 20 MG TAB PO SCH (08:06)
[2020-04-25] MEDS: LORATADINE 10 MG TAB PO SCH (08:06)
[2020-04-25] MEDS: GABAPENTIN 300 MG CAP PO SCH ×3 (08:06→20:22)
[2020-04-25] MEDS: levETIRAcetam 250MG TABLET (KEPPRA) PO SCH ×2 (08:06→20:22)
[2020-04-25] MEDS: TRIAMCINOLONE ACET 0.1% CREAM 80 GM TOP SCH ×2 (08:07→20:21)
[2020-04-25 08:36] LABS: FREE T3 2.5 PG/ML (2.2-4.0); FREE T4 1.07 NG/DL (0.76-1.46)
[2020-04-25] MEDS: BUPRENORPHINE/NALOXONE 8-2MG SUBLINGUAL TABLET(SUBOXONE) SL SCH ×2 (09:47→20:22)
[2020-04-25] MEDS: LORazepam 1 MG TAB PO PRN (12:40)
--- NOTE | 2020-04-25 17:32 | MHIPNPDOC ---
[facility] Progress Note Progress Note DATE OF SERVICE: 04/25/20 HISTORY: Patient is a polysubstance abuser with numerous admissions who came in in a psychotic and sedated state. She had been using moli. In addition, her to xicology screen was positive for numerous substance VITAL SIGNS: See below. NEW TEST RESULTS: None. CURRENT MEDICATIONS: See below. MENTAL STATUS EXAMINATION: Patient is a 34-year old female, who is in a much clearer and awake state. Then, on admission. Speech: Is, no gross abnormality. Language skills are of gross abnormality. Thought processes including: Recognition of drug use contributing to her condition. States she is self-medicating. ADHD. Thought content: As above. Abstract reasoning, and computation: Able to abstract. Description of associations:. No loose association. Description of abnormal or psychotic thoughts:. No psychotic thought. At this time. Judgment:. Poor. Insight: Poor. Orientation: 3. Recent and remote memory: Intact. Attention span and concentration: Intact. Language:. No gross disturbance. Fund of knowledge: Reasonable. Mood: Euthymic. Affect:, Congruent. DIAGNOSES: 1. Polysubstance abuse. 2., Personality disorder. 3. None. ASSESSMENT: As above MANAGEMENT PLAN:. Will discuss discharge and outpatient planning with staff. TIME SPENT:. 30 minutes. Vital Signs Vital Signs Date Time Temp Pulse Resp B/P (MAP) Pulse Ox O2 Delivery O2 Flow Rate FiO2 04/25/20 07:15 127/57 04/25/20 06:54 97.8 94 16 96 Room Air Laboratory Data 24H Labs Laboratory Tests 2 04/25/20 07:23: Free Thyroxine 1.07, Free Triiodothyronine 2.5 Current Medications Current Medications Medications (Trade) Dose Ordered Sig/Carlos Route PRN Reason Start Time Stop Time Status Last Admin Dose Admin Acetaminophen (Tylenol Tab) 500 mg Q6HP PRN PO PAIN 04/24/20 16:15 04/24/20 20:16 Al Hydrox/Mg Hydrox/Simethicone (Mylanta) 30 ml Q4HP PRN PO HEARTBURN/INDIGESTION 04/22/20 12:10 Amitriptyline HCl (Elavil) 25 mg QHS PO 04/24/20 21:00 04/24/20 20:14 Amitriptyline HCl (Elavil) 50 mg QHS PO 04/22/20 21:00 04/24/20 08:17 DC 04/23/20 20:26 Buprenorphine/ Naloxone (Suboxone 8/2mg) 1 tab BID SL 04/23/20 21:00 04/25/20 09:47 Buprenorphine/ Naloxone (Suboxone 8/2mg) 1 tab DAILY SL 04/22/20 09:00 04/22/20 15:03 DC 04/22/20 09:14 Buprenorphine/ Naloxone (Suboxone 8/2mg) 1 tab DAILY SL 04/23/20 09:00 04/23/20 20:35 DC 04/23/20 10:41 Citalopram Hydrobromide (CeleXA) 20 mg DAILY PO 04/22/20 09:00 04/22/20 12:30 DC 04/22/20 09:16 Citalopram Hydrobromide (CeleXA) 20 mg DAILY PO 04/23/20 09:00 04/25/20 08:06 Clonidine HCl (Catapres) 0.2 mg TID PRN PO ANXIETY 04/22/20 12:10 04/25/20 07:15 Clonidine HCl (Catapres) 0.2 mg TIDP PO 04/22/20 09:20 04/22/20 09:46 DC 04/22/20 09:25 Clonidine HCl (Catapres) 0.2 mg TIDP PRN PO ANXIETY 04/22/20 09:46 04/22/20 12:31 DC Gabapentin (Neurontin) 600 mg TID PO 04/22/20 09:00 04/25/20 15:39 Home Med (Med Rec Complete!) ASDIRECTED XX 04/22/20 10:00 04/22/20 10:00 DC Ketorolac Tromethamine (ToRADol) 10 mg Q6H PRN PO PAIN 04/22/20 12:10 04/27/20 12:09 04/25/20 15:39 Levetiracetam (Keppra) 1,000 mg BID PO 04/22/20 09:00 04/22/20 12:31 DC 04/22/20 09:15 Levetiracetam (Keppra) 1,000 mg BID PO 04/22/20 21:00 04/25/20 08:06 Loratadine (Claritin) 10 mg DAILY PO 04/22/20 09:00 04/22/20 12:32 DC 04/22/20 09:15 Loratadine (Claritin) 10 mg DAILY PO 04/23/20 09:00 04/25/20 08:06 Lorazepam (Ativan) 1 mg BIDP PRN PO ANXIETY/AGITATION 04/22/20 12:10 04/25/20 12:40 Lorazepam (Ativan) 2 mg STAT STAT PO 04/21/20 02:05 04/21/20 02:07 DC Magnesium Hydroxide (Milk Of Magnesia) 30 ml DAILYPRN PRN PO CONSTIPATION 04/22/20 12:10 Omeprazole (PriLOSEC) 20 mg DAILY PO 04/22/20 09:00 04/22/20 12:32 DC 04/22/20 09:15 Omeprazole (PriLOSEC) 20 mg DAILY PO 04/23/20 09:00 04/25/20 08:06 Risperidone (RisperDAL) 3 mg DAILY PO 04/22/20 09:00 04/22/20 12:33 DC 04/22/20 09:16 Risperidone (RisperDAL) 3 mg QHS PO 04/23/20 21:00 04/24/20 20:15 Sumatriptan Succinate (Imitrex) 50 mg DAILY PRN PO MIGRAINE 04/22/20 12:10 Trazodone HCl (Desyrel) 50 mg QHSP PRN PO INSOMNIA 04/22/20 12:10 04/23/20 20:25 Triamcinolone Acetonide (Kenalog 0.1% Cream) 1 dose BID TOP 04/24/20 21:00 04/25/20 08:07 Allergies Coded Allergies: Penicillins (Verified Allergy, Unknown, 01/09/20) dextroamphetamine (Verified Allergy, Unknown, 01/09/20) haloperidol (Verified Allergy, Unknown, 01/09/20) olanzapine (Verified Allergy, Unknown, 01/09/20) sulfamethoxazole (Verified Allergy, Unknown, 01/09/20) trimethoprim (Verified Allergy, Unknown, 01/09/20) ziprasidone (Verified Allergy, Unknown, 01/09/20) ibuprofen (Unverified Adverse Reaction, Unknown, 01/09/20) Prefers stronger meds BIMAL BURGESS MD Apr 25, 2020 17:32
[2020-04-25 18:43] VITALS: BP 113/60
[2020-04-25] MEDS: AMITRIPTYLINE 25MG TABLET PO SCH (20:21)
[2020-04-25] MEDS: risperiDONE 3 MG TAB PO SCH (20:21)
[2020-04-26 06:32] VITALS: BP 111/56
[2020-04-26] MEDS: levETIRAcetam 250MG TABLET (KEPPRA) PO SCH (09:44)
[2020-04-26] MEDS: CitaloPRAM (CeleXA) 20 MG TAB PO SCH (09:44)
[2020-04-26] MEDS: TRIAMCINOLONE ACET 0.1% CREAM 80 GM TOP SCH (09:44)
[2020-04-26] MEDS: LORATADINE 10 MG TAB PO SCH (09:44)
[2020-04-26 09:45] VITALS: BP 119/75
[2020-04-26] MEDS: BUPRENORPHINE/NALOXONE 8-2MG SUBLINGUAL TABLET(SUBOXONE) SL SCH (09:45)
[2020-04-26] MEDS: GABAPENTIN 300 MG CAP PO SCH (09:45)
[2020-04-26] MEDS: OMEPRAZOLE 20 MG CAP PO SCH (09:45)
[2020-04-26] MEDS: cloNIDine 0.2 MG TAB PO PRN (09:45)
[2020-04-26] MEDS ORDERED: IMIT50TA PO (10:28)
[2020-04-26] MEDS ORDERED: KEPP10002 PO ×2 (10:28→21:17)
[2020-04-26] MEDS ORDERED: DOXE25CA PO ×2 (10:28→21:17)
[2020-04-26] MEDS ORDERED: TRIA1CR80 TOP ×2 (10:28→21:17)
[2020-04-26] MEDS ORDERED: GABA600T4 PO ×2 (10:28→21:17)
[2020-04-26] MEDS ORDERED: CLON0.2T PO ×2 (10:28→21:17)
--- NOTE | 2020-04-26 13:10 | MHDSPDOC ---
[facility] Discharge Summary Discharge Summary DATE OF ADMISSION: Apr 22, 2020 at 13:05 DATE OF DISCHARGE: Apr 26, 2020 at 12:35 DISCHARGE DIAGNOSES: Unspecified Psychotic Disorder Adjustment Disorder Schizoaffective Disorder, depression Benzodiazepine Use Disorder Cannabis Use Disorder Methamphetamine Use Disorder REASON FOR ADMISSION: Patient is a 34 -year-old , female, who has had numerous repetitive visits to the emergency room's 5-6 times in February 8 times in March. Her symptoms are almost exactly of her last admission, numerous somatic complaints and numerous visits to the ER. Her toxicology screen is positive for amphetamines, benzodiazepines, cannabis, methamphetamine. She states she has a rash on her back and in her mouth is killing her. She appears sedated, as she did on her last admission and her entire hospital stay. She is drowsy, with poor eye contact. She states she lives in [place] apartment with her mother and sister. She has had one episode of surgery for hernia. She has numerous arrests for assault and other charges. She states she has a high school education. She has not been employed. Her psychiatric history is positive for a previous admission and numerous emergency department visits. She had the same paranoid ideas in the past and on this admission. She said her belly is bleeding and that she got leukemia from her family. She used Catie yesterday. Per ED Report: Pt was brought to [facility] by EMS due to pt calling EMS and stating she was not feeling good. Pt reports that her "belly was bleeding, her heart h urt and she wants to be evaluated for everything". Chief Complaint : Pt is well known to [facility] ED and tw. Pt has been seen 3 times in the last 24 hours with increasing concerns for her health. Pt is very lethargic during interview and believes that she was pumped full of blood thinners on her previous visit to [facility]. Pt believes that now her belly is bleeding and she believes she has leukemia like some of her family members. Pt also reports that she has a rash on her back that is swollen and hurts. Pt is frustrated that her medical needs are not being met and instead she was put in BHU. Pt reports that her mouth also is very sore. Pt reports that she has not felt good in sometime and although she has tested positive for Opiates, Methadone, Amphetamines, Benzos, and Marijuana she has cut down significantly from her previous use. Pt reports that she last used Catie yesterday morning. Pt denies SI/HI/AH/VH. Pt reports poor appetite however, states this is due to her mouth hurting so badly. Pt reports poor sleep. [facility] ED provider feels that these issues are psychosomatic in nature and feels that she would benefit from a hospitalization at this time. CONSULTANTS INVOLVED: See Medical H + P by Hospitalist TREATMENT AND PROGRESS ON THE UNIT: Patient was admitted to the [facility] on a legal status he was afforded the following treatment modalities: 1) Individual Therapy 2) Group Therapy 3) Medication Management 4) Milieu Therapy 5) Safe Environment HOSPITAL COURSE: Patient was admitted to [facility] on a legal status and continued on her home medications. She admits to recent use of Methamphetamines and having psychotic symptoms from Meth ingestion. At today's interview, patient is denying wanting to hurt herself or others. She reports that she has good supports at home. She says, "I got scared about moving into my own apartment again. My mother is going to stay with me, if not her, then my sister will stay. And they have offered to let me stay with them. I don't think I need to stay anymore." DISCHARGE ASSESSMENT: In today's interview, patient is alert and oriented, pts dress is appropriate. Hygiene and grooming is well-kempt. Smiles on approach and is pleasant and engaged in the interview. Denies depression and anxiety. D enies suicidal and homicidal ideation, planning or intent. Denies and is not observed with michael, psychotic symptoms of delusions, bizarre thinking, obsessions, paranoia, ruminations illogical thoughts, flight of ideas or having poor insight and judgement. Patient has normal mentation, declines further hospitalization on a voluntary status and meets criteria for discharge today. Patient encouraged to return to hospital if his symptoms worsen or change and encouraged to call unit if he/she/they needs to speak to provider for questions regarding medications or care. MENTAL STATUS EXAMINATION ON DISCHARGE: Patient is a 34 year old Single, Unemployed, Domiciled, Female who initially came in with somatic complaints. He was observed to be delusional believing that she has Leukemia. Speech: Is fluid, conversant, normal rate, tone and volume Language skills are intact Thought processes including: linear and goal oriented Thought content: denies depression and anxiety. Denies suicidal/homicidal ideat ion, planning or intent. Abstract reasoning, and computation: fair Description of associations: denies, none observed Description of abnormal or psychotic thoughts: denies, none observed. Judgment: fair Insight: fair Orientation: alert and oriented to person, place, time and situation Recent and remote memory: intact Attention span and concentration: good Language: expansive Fund of knowledge: average Mood: Euthymic Mood Affect: reactive MEDICATIONS ON DISCHARGE: See medication reconciliation PLAN/FOLLOWUP ARRANGEMENTS: [facility] The amount of time spent in the coordination of care for this patient was approximately 25 minutes. Vital Signs/I&Os Vital Signs Date Time Temp Pulse Resp B/P (MAP) Pulse Ox O2 Delivery O2 Flow Rate FiO2 04/26/20 09:45 119/75 04/26/20 06:32 98.4 92 20 99 Room Air Medications Scheduled Amitriptyline HCl (Amitriptyline HCl) 50 Mg Tablet, 50 MG PO QHS, (Reported) Buprenorphine HCl/Naloxone HCl (Suboxone 8 mg-2 mg Sl Film) 1 Each Film, 2 STRIP SL DAILY, (Reported) Chlorhexidine Gluconate (Chlorhexidine Gluconate) 473 Ml Mouthwash, 15 ML SSP BID, (Reported) Citalopram Hydrobromide (Citalopram HBr) 20 Mg Tablet, 20 MG PO DAILY, (Report ed) Doxepin HCl (Doxepin HCl) 25 Mg Capsule, 25 MG PO QHS for Sleep, #7 Gabapentin (Gabapentin) 600 Mg Tablet, 600 MG PO TID for Pain, #21 Levetiracetam (Keppra) 1,000 Mg Tab, 1,000 MG PO BID for Seizures, #14 Loratadine (Loratadine) 10 Mg Tablet, 10 MG PO DAILY, (Reported) Omeprazole (Omeprazole) 20 Mg Capsule.dr, 20 MG PO DAILY, (Reported) Risperidone (Risperidone) 3 Mg Tablet, 3 MG PO BID, (Reported) Triamcinolone Acet (Triamcinolone Acetonide 0.1% Crm) 80 Gm Cream..g., 1 APLCT TOP BID for Rash, #1 Scheduled PRN Clonidine HCl (Clonidine HCl) 0.2 Mg Tablet, 0.2 MG PO TID PRN for ANXIETY, #21 Sumatriptan Succinate (Imitrex) 50 Mg Tablet, 50 MG PO DAILY PRN for MIGRAINE, #7 Allergies Coded Allergies: Penicillins (Verified Allergy, Unknown, 01/09/20) dextroamphetamine (Verified Allergy, Unknown, 01/09/20) haloperidol (Verified Allergy, Unknown, 01/09/20) olanzapine (Verified Allergy, Unknown, 01/09/20) sulfamethoxazole (Verified Allergy, Unknown, 01/09/20) trimethoprim (Verified Allergy, Unknown, 01/09/20) ziprasidone (Verified Allergy, Unknown, 01/09/20) ibuprofen (Unverified Adverse Reaction, Unknown, 01/09/20) Prefers stronger meds MARGARET PELAEZ NP Apr 26, 2020 13:10
[2020-04-26] MEDS ORDERED: SUMA50TA2 PO (21:17)
[2020-04-26] MEDS ORDERED: PATIENT COMMENT (21:18)
[2020-04-27] MEDS ORDERED: IBUP-1022 PO (14:28)
[2020-04-27] MEDS ORDERED: ACET1TAB55 PO (14:28)
== END 2020-04-26 12:35 | disposition home or self-care (01) | DRG 755 ==
LOC: M ED 01:47 → M PSY 04-22 13:05
PROVIDERS: ADMIT Psychiatry & Neurology Psychiatry; ATTEND Psychiatry & Neurology Psychiatry
DX: F43.20 Adjustment disorder, unspecified (principal); F25.9 Schizoaffective disorder, unspecified; F32.9 Major depressive disorder, single episode, unspecified; G40.909 Epilepsy, unspecified, not intractable, without status epilepticus; G43.909 Migraine, unspecified, not intractable, without status migrainosus; F60.9 Personality disorder, unspecified; F15.10 Other stimulant abuse, uncomplicated; R21 Rash and other nonspecific skin eruption; F17.200 Nicotine dependence, unspecified, uncomplicated; F12.10 Cannabis abuse, uncomplicated; Z88.0 Allergy status to penicillin; Z88.6 Allergy status to analgesic agent; Z88.2 Allergy status to sulfonamides; Z88.8 Allergy status to other drugs, medicaments and biological substances; Z79.899 Other long term (current) drug therapy; Z86.16 Personal history of COVID-19

== ENCOUNTER 2020-04-26 16:22 | Inpatient (IN) | payer OTHER ==
[~2020-04-26] VITALS: Ht 152.4 cm; Wt 78.5 kg
[~2020-04-26 16:22] MED LIST changes: +TRIA1CR80 TOP
[2020-04-26] MEDS ORDERED: NS 1,000 ML IV ONE ×2 (16:35→19:45)
[2020-04-26] MEDS ORDERED: BOOSTRIX/ADACEL VACCINE (DIPHTH/PERTUSS/ACELL/TETANUS) 0.5ML SYR IM ONE (16:40)
[2020-04-26 17:22] LABS: BASO # 0.1 10^3/uL (0.0-0.2); BASO % 0.6 % (0.0-1.0); EOS # 0.2 10^3/uL (0.0-0.5); EOS % 1.9 % (0.0-3.0); HEMATOCRIT 39.4 % (36.0-47.0); HEMOGLOBIN 12.2 g/dl (12.0-15.5); LYMPH # 2.9 10^3/uL (1.5-5.0); LYMPH % 33.9 % (24.0-44.0); MEAN CORPUSCULAR HEMOGLOBIN 29.1 pg (27.0-33.0); MONO # 0.9 10^3/uL (0.0-0.8); MONO % 10.5 % (2.0-8.0); NEUTROPHILS # 4.5 10^3/uL (1.5-8.5); NEUTROPHILS % 52.6 % (36.0-66.0); PLATELET COUNT, AUTOMATED 283 10^3/uL (150-450); RED BLOOD COUNT 4.19 10^6/uL (4.00-5.40); WHITE BLOOD COUNT 8.6 10^3/uL (4.0-10.0)
[2020-04-26] MEDS ORDERED: LIDOCAINE 1% MDV 20ML VIAL SC ONE (17:45)
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
[2020-04-26 18:16] LABS: ALBUMIN 3.5 GM/DL (3.2-5.2); ALT/SGPT 65 U/L (12-78); AMYLASE 35 U/L (25-115); BILIRUBIN,DIRECT < 0.1 MG/DL (0.0-0.2); BILIRUBIN,TOTAL 0.2 MG/DL (0.2-1.0); BLOOD UREA NITROGEN 9 MG/DL (7-18); CALCIUM LEVEL 8.6 MG/DL (8.5-10.1); CARBON DIOXIDE LEVEL 22 MEQ/L (21-32); CHLORIDE LEVEL 107 MEQ/L (98-107); ETHYL ALCOHOL (ETHANOL) < 0.003 % (0.000-0.010); GLOMERULAR FILTRATION RATE > 60.0 (>60); GLUCOSE, FASTING 97 MG/DL (70-100); LIPASE 73 U/L (73-393); POTASSIUM SERUM 4.3 MEQ/L (3.5-5.1); SODIUM LEVEL 140 MEQ/L (136-145); TOTAL PROTEIN 6.8 GM/DL (6.4-8.2); TROPONIN I < 0.02 NG/ML (< 0.10)
--- NOTE | 2020-04-26 18:50 | REP ---
INDICATION: trauma COMPARISON: None. TECHNIQUE: AP, lateral, bilateral oblique views right hand. FINDINGS: No acute fracture dislocation. No foreign body. Soft tissue swelling. IMPRESSION: No acute fracture or dislocation. <Electronically signed by Broderick Mondragon > 04/26/20 [id number]
[2020-04-26 19:08] LABS: URINE PREG TEST NEGATIVE (NEGATIVE)
[2020-04-26 19:17] LABS: CPK CREATINE PHOSPHOKINASE 2180 U/L (26-192); MB/CK RELATIVE INDEX 0.77 (< OR =4)
[2020-04-26 19:31] LABS: AMPHETAMINES LEVEL URINE NEGATIVE (NEGATIVE); BARBITURATES URINE NEGATIVE (NEGATIVE); BENZODIAZEPINES URINE NEGATIVE (NEGATIVE); CANNABINOIDS URINE NEGATIVE (NEGATIVE); COCAINE METABOLITE URINE NEGATIVE (NEGATIVE); METHADONE URINE NEGATIVE (NEGATIVE); OPIATES URINE NEGATIVE (NEGATIVE); PHENCYCLIDINE URINE NEGATIVE (NEGATIVE)
[2020-04-26] MEDS ORDERED: MOM 30ML SUSPENSION UDC PO PRN (20:30)
[2020-04-26] MEDS ORDERED: MAALOX 30 ML SUSP *UDC PO PRN (20:30)
[2020-04-26] MEDS ORDERED: ACETAMINOPHEN TAB 650MG DOSE (2X325MG) PO PRN (20:30)
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
[2020-04-26] MEDS ORDERED: DOXEPIN 25 MG CAP PO SCH (21:00)
[2020-04-26] MEDS ORDERED: AMITRIPTYLINE 50 MG TAB PO SCH (21:00)
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
[2020-04-26] MEDS ORDERED: SUMA50TA2 PO (21:17)
[2020-04-26] MEDS ORDERED: TRIA1CR80 TOP (21:17)
[2020-04-26] MEDS ORDERED: KEPP10002 PO (21:17)
[2020-04-26] MEDS ORDERED: CLON0.2T PO (21:17)
[2020-04-26] MEDS ORDERED: GABA600T4 PO (21:17)
[2020-04-26] MEDS ORDERED: DOXE25CA PO (21:17)
[2020-04-26] MEDS ORDERED: PATIENT COMMENT (21:18)
[2020-04-26] MEDS ORDERED: cloNIDine 0.2 MG TAB PO PRN (22:50)
[2020-04-26] MEDS ORDERED: SUMAtriptan SUCCINATE 25 MG TAB PO PRN (22:50)
[2020-04-26 23:05] VITALS: BP 129/83
[2020-04-26] MEDS: levETIRAcetam 250MG TABLET (KEPPRA) PO SCH (23:33)
[2020-04-26] MEDS: DOCUSATE SODIUM 100MG CAPSULE PO SCH (23:34)
[2020-04-26] MEDS: NS 1,000 ML IV SCH (23:34)
[2020-04-26] MEDS: risperiDONE 3 MG TAB PO SCH (23:51)
[2020-04-27 00:18] LABS: INR 0.94; PARTIAL THROMBOPLASTIN TIME 32.7 SECONDS (24.2-38.5); PROTHROMBIN TIME 12.8 SECONDS (12.5-14.3)
[2020-04-27 06:00] VITALS: BP 113/80
[2020-04-27 07:39] LABS: ALBUMIN 2.7 GM/DL (3.2-5.2); ALT/SGPT 48 U/L (12-78); BILIRUBIN,TOTAL 0.2 MG/DL (0.2-1.0); BLOOD UREA NITROGEN 8 MG/DL (7-18); CARBON DIOXIDE LEVEL 27 MEQ/L (21-32); CHLORIDE LEVEL 109 MEQ/L (98-107); CPK CREATINE PHOSPHOKINASE 855 U/L (26-192); CREATININE FOR GFR 0.57 MG/DL (0.55-1.30); GLOMERULAR FILTRATION RATE > 60.0 (>60); GLUCOSE, FASTING 70 MG/DL (70-100); MAGNESIUM LEVEL 2.1 MG/DL (1.8-2.4); POTASSIUM SERUM 4.7 MEQ/L (3.5-5.1); SODIUM LEVEL 142 MEQ/L (136-145); TOTAL PROTEIN 5.9 GM/DL (6.4-8.2)
[2020-04-27 08:16] LABS: HEMATOCRIT 32.9 % (36.0-47.0); HEMOGLOBIN 10.5 g/dl (12.0-15.5); MEAN CORPUSCULAR HEMOGLOBIN 29.6 pg (27.0-33.0); MEAN CORPUSCULAR HGB CONC 31.9 g/dl (32.0-36.5); MEAN CORPUSCULAR VOLUME 92.7 fl (80.0-96.0); PLATELET COUNT, AUTOMATED 284 10^3/uL (150-450); RED BLOOD COUNT 3.55 10^6/uL (4.00-5.40)
[2020-04-27] MEDS: NS 1,000 ML IV SCH (08:16)
[2020-04-27] MEDS: risperiDONE 3 MG TAB PO SCH (08:17)
[2020-04-27] MEDS: DOCUSATE SODIUM 100MG CAPSULE PO SCH (08:17)
[2020-04-27] MEDS: levETIRAcetam 250MG TABLET (KEPPRA) PO SCH (08:17)
[2020-04-27] MEDS ORDERED: BUPRENORPHINE/NALOXONE 8-2MG SUBLINGUAL TABLET(SUBOXONE) SL SCH (09:00)
[2020-04-27] MEDS ORDERED: TRIAMCINOLONE ACET 0.1% CREAM 80 GM TOP SCH (09:00)
[2020-04-27] MEDS ORDERED: OMEPRAZOLE 20 MG CAP PO SCH (09:00)
[2020-04-27] MEDS ORDERED: CitaloPRAM (CeleXA) 20 MG TAB PO SCH (09:00)
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
[2020-04-27 14:00] VITALS: BP 116/61
[2020-04-27] MEDS ORDERED: ACET1TAB55 PO (14:28)
[2020-04-27] MEDS ORDERED: IBUP-1022 PO (14:28)
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
== END 2020-04-27 17:46 | disposition home or self-care (01) | DRG 57 ==
LOC: M ED 16:22 → M ED INP 19:43 → M MSPAV 23:05
PROVIDERS: ADMIT Internal Medicine; ATTEND Family Medicine
DX: S06.0X0A Concussion without loss of consciousness, initial encounter (principal); F25.9 Schizoaffective disorder, unspecified; S01.01XA Laceration without foreign body of scalp, initial encounter; F17.200 Nicotine dependence, unspecified, uncomplicated; S61.411A Laceration without foreign body of right hand, initial encounter; V02.10XA Pedestrian on foot injured in collision with two- or three-wheeled motor vehicle in traffic accident, initial encounter; Y93.01 Activity, walking, marching and hiking; Y99.8 Other external cause status; G43.909 Migraine, unspecified, not intractable, without status migrainosus; K21.9 Gastro-esophageal reflux disease without esophagitis; S61.412A Laceration without foreign body of left hand, initial encounter; Z79.899 Other long term (current) drug therapy; Z88.0 Allergy status to penicillin; Z88.2 Allergy status to sulfonamides; Z88.8 Allergy status to other drugs, medicaments and biological substances; Z88.6 Allergy status to analgesic agent; Z86.16 Personal history of COVID-19

== ENCOUNTER 2020-04-28 13:00 | Emergency (ER) | payer OTHER ==
[~2020-04-28] VITALS: Ht 152.4 cm; Wt 79.5 kg
[2020-04-28 13:00] VITALS: BP 134/78
[~2020-04-28 13:00] MED LIST changes: +ACET1TAB55 PO; +IBUP-1022 PO; +SUMA50TA2 PO
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
== END 2020-04-28 14:05 | disposition home or self-care (01) ==
LOC: M ED 13:00
DX: S00.83XA Contusion of other part of head, initial encounter (principal); V03.10XD Pedestrian on foot injured in collision with car, pick-up truck or van in traffic accident, subsequent encounter; Y92.9 Unspecified place or not applicable; Y93.9 Activity, unspecified; Y99.9 Unspecified external cause status; F25.9 Schizoaffective disorder, unspecified; Z79.899 Other long term (current) drug therapy; Z88.0 Allergy status to penicillin; Z88.8 Allergy status to other drugs, medicaments and biological substances; Z88.6 Allergy status to analgesic agent

== ENCOUNTER 2020-04-29 03:43 | Emergency (ER) | payer OTHER ==
[~2020-04-29] VITALS: Ht 154.9 cm; Wt 79.5 kg
[2020-04-29 03:52] VITALS: BP 153/90
[2020-04-29] MEDS ORDERED: LORazepam 2 MG TAB PO ONE (04:05)
== END 2020-04-29 04:24 | disposition home or self-care (01) ==
LOC: M ED 03:43
DX: F15.10 Other stimulant abuse, uncomplicated (principal); F17.200 Nicotine dependence, unspecified, uncomplicated; F19.10 Other psychoactive substance abuse, uncomplicated; F42.4 Excoriation (skin-picking) disorder; Z88.0 Allergy status to penicillin; Z88.6 Allergy status to analgesic agent; Z88.8 Allergy status to other drugs, medicaments and biological substances

== ENCOUNTER 2020-04-29 16:50 | Emergency (ER) | payer OTHER ==
[~2020-04-29] VITALS: Ht 152.4 cm; Wt 79.5 kg
[2020-04-29 17:03] VITALS: BP 127/74
--- NOTE | 2020-04-29 18:26 | REP ---
INDICATION: hurts to breathe COMPARISON: 04/11/2020 TECHNIQUE: PA and lateral. FINDINGS: The mediastinum and cardiac silhouette are normal. The lung johnson are clear and without acute consolidation, effusion, or pneumothorax. The skeletal structures are intact and normal. IMPRESSION: No acute cardiopulmonary process. <Electronically signed by Broderick Mondragon > 04/29/20 [id number]
[2020-04-29 18:53] LABS: BASO % 0.4 % (0.0-1.0); EOS # 0.1 10^3/uL (0.0-0.5); EOS % 1.2 % (0.0-3.0); HEMOGLOBIN 11.7 g/dl (12.0-15.5); LYMPH # 1.2 10^3/uL (1.5-5.0); LYMPH % 23.4 % (24.0-44.0); MEAN CORPUSCULAR HEMOGLOBIN 28.7 pg (27.0-33.0); MEAN CORPUSCULAR HGB CONC 31.6 g/dl (32.0-36.5); MEAN CORPUSCULAR VOLUME 90.7 fl (80.0-96.0); MONO # 0.5 10^3/uL (0.0-0.8); NEUTROPHILS # 3.3 10^3/uL (1.5-8.5); NEUTROPHILS % 65.6 % (36.0-66.0); PLATELET COUNT, AUTOMATED 331 10^3/uL (150-450); RED BLOOD COUNT 4.08 10^6/uL (4.00-5.40)
[2020-04-29 19:02] LABS: INR 0.97; PROTHROMBIN TIME 13.1 SECONDS (12.5-14.3)
== END 2020-04-29 20:04 | disposition home or self-care (01) ==
LOC: EDBD 16:50 → M ED 16:50
DX: R23.3 Spontaneous ecchymoses (principal); F17.200 Nicotine dependence, unspecified, uncomplicated; F19.10 Other psychoactive substance abuse, uncomplicated; Z88.0 Allergy status to penicillin; Z88.6 Allergy status to analgesic agent; Z88.8 Allergy status to other drugs, medicaments and biological substances

== ENCOUNTER 2020-04-30 02:53 | Emergency (ER) | payer OTHER ==
[2020-04-30] MEDS ORDERED: LORazepam 2 MG TAB PO ONE (04:15)
[2020-04-30 04:45] VITALS: BP 131/74
== END 2020-04-30 04:47 | disposition home or self-care (01) ==
LOC: M ED 02:53
DX: F15.159 Other stimulant abuse with stimulant-induced psychotic disorder, unspecified (principal); F17.200 Nicotine dependence, unspecified, uncomplicated; Z79.899 Other long term (current) drug therapy; Z88.0 Allergy status to penicillin; Z88.6 Allergy status to analgesic agent; Z88.8 Allergy status to other drugs, medicaments and biological substances

== ENCOUNTER 2020-04-30 16:35 | Emergency (ER) | payer OTHER ==
[2020-04-30 19:41] LABS: HEMATOCRIT 41.8 % (36.0-47.0); HEMOGLOBIN 13.5 g/dl (12.0-15.5); MEAN CORPUSCULAR HGB CONC 32.3 g/dl (32.0-36.5); MEAN CORPUSCULAR VOLUME 89.9 fl (80.0-96.0); PLATELET COUNT, AUTOMATED 409 10^3/uL (150-450); RED BLOOD COUNT 4.65 10^6/uL (4.00-5.40); WHITE BLOOD COUNT 6.6 10^3/uL (4.0-10.0)
[2020-04-30 20:08] LABS: HCG, SERUM QUALITATIVE NEGATIVE (NEGATIVE)
[2020-04-30 20:12] VITALS: BP 133/58
[2020-04-30 20:15] LABS: ACETAMINOPHEN LEVEL < 2.0 UG/ML (10.0-30.0); ALBUMIN 4.6 GM/DL (3.2-5.2); ALT/SGPT 53 U/L (12-78); BILIRUBIN,DIRECT 0.1 MG/DL (0.0-0.2); BILIRUBIN,TOTAL 0.5 MG/DL (0.2-1.0); BLOOD UREA NITROGEN 9 MG/DL (7-18); CALCIUM LEVEL 9.7 MG/DL (8.5-10.1); CARBON DIOXIDE LEVEL 26 MEQ/L (21-32); CHLORIDE LEVEL 104 MEQ/L (98-107); CPK CREATINE PHOSPHOKINASE 415 U/L (26-192); CREATININE FOR GFR 0.63 MG/DL (0.55-1.30); ETHYL ALCOHOL (ETHANOL) < 0.003 % (0.000-0.010); GLOMERULAR FILTRATION RATE > 60.0 (>60); GLUCOSE, FASTING 102 MG/DL (70-100); POTASSIUM SERUM 4.2 MEQ/L (3.5-5.1); SODIUM LEVEL 139 MEQ/L (136-145); THYROID STIMULATING HORMONE 0.573 uIU/ML (0.358-3.740); TOTAL PROTEIN 8.8 GM/DL (6.4-8.2)
[2020-04-30] MEDS ORDERED: LORazepam 2 MG TAB PO ONE (20:15)
== END 2020-04-30 21:15 | disposition home or self-care (01) ==
LOC: M ED 16:35
DX: F40.248 Other situational type phobia (principal); F20.9 Schizophrenia, unspecified; F17.200 Nicotine dependence, unspecified, uncomplicated; F15.10 Other stimulant abuse, uncomplicated; Z86.16 Personal history of COVID-19

== ENCOUNTER 2020-05-01 02:16 | Emergency (ER) | payer OTHER ==
[~2020-05-01] VITALS: Ht 154.9 cm; Wt 79.5 kg
[2020-05-01 03:28] LABS: HEMATOCRIT 36.8 % (36.0-47.0); HEMOGLOBIN 11.8 g/dl (12.0-15.5); MEAN CORPUSCULAR HEMOGLOBIN 28.7 pg (27.0-33.0); MEAN CORPUSCULAR HGB CONC 32.1 g/dl (32.0-36.5); MEAN CORPUSCULAR VOLUME 89.5 fl (80.0-96.0); PLATELET COUNT, AUTOMATED 388 10^3/uL (150-450); RED BLOOD COUNT 4.11 10^6/uL (4.00-5.40); WHITE BLOOD COUNT 7.3 10^3/uL (4.0-10.0)
[2020-05-01 03:34] LABS: HCG, SERUM QUALITATIVE NEGATIVE (NEGATIVE)
[2020-05-01 03:52] LABS: ACETAMINOPHEN LEVEL < 2.0 UG/ML (10.0-30.0); ALT/SGPT 45 U/L (12-78); BILIRUBIN,DIRECT 0.1 MG/DL (0.0-0.2); BILIRUBIN,TOTAL 0.4 MG/DL (0.2-1.0); BLOOD UREA NITROGEN 12 MG/DL (7-18); CALCIUM LEVEL 9.8 MG/DL (8.5-10.1); CARBON DIOXIDE LEVEL 27 MEQ/L (21-32); CHLORIDE LEVEL 103 MEQ/L (98-107); CREATININE FOR GFR 1.02 MG/DL (0.55-1.30); ETHYL ALCOHOL (ETHANOL) < 0.003 % (0.000-0.010); GLOMERULAR FILTRATION RATE > 60.0 (>60); GLUCOSE, FASTING 91 MG/DL (70-100); POTASSIUM SERUM 4.1 MEQ/L (3.5-5.1); SALICYLATE LEVEL 3.2 MG/DL (5.0-30.0); SODIUM LEVEL 136 MEQ/L (136-145); TOTAL PROTEIN 7.9 GM/DL (6.4-8.2)
[2020-05-01 03:54] LABS: AMPHETAMINES LEVEL URINE NEGATIVE (NEGATIVE); BARBITURATES URINE NEGATIVE (NEGATIVE); BENZODIAZEPINES URINE NEGATIVE (NEGATIVE); CANNABINOIDS URINE NEGATIVE (NEGATIVE); COCAINE METABOLITE URINE NEGATIVE (NEGATIVE); METHADONE URINE NEGATIVE (NEGATIVE); OPIATES URINE NEGATIVE (NEGATIVE); PHENCYCLIDINE URINE NEGATIVE (NEGATIVE)
[2020-05-01 13:20] VITALS: BP 101/56
[2020-05-02] MEDS ORDERED: IBUP1TAB6 PO (11:35)
[2020-05-02] MEDS ORDERED: APAP325T4 PO (11:35)
== END 2020-05-01 13:35 | disposition home or self-care (01) ==
LOC: M ED 02:16
DX: F15.10 Other stimulant abuse, uncomplicated (principal); Z79.899 Other long term (current) drug therapy; Z88.0 Allergy status to penicillin; Z88.6 Allergy status to analgesic agent; Z88.8 Allergy status to other drugs, medicaments and biological substances

== ENCOUNTER 2020-05-01 19:40 | Emergency (ER) | payer OTHER ==
[~2020-05-01] VITALS: Ht 152.4 cm; Wt 78.5 kg
[2020-05-01 20:00] VITALS: BP 116/76
[2020-05-02] MEDS ORDERED: APAP325T4 PO (11:35)
[2020-05-02] MEDS ORDERED: IBUP1TAB6 PO (11:35)
== END 2020-05-01 23:35 | disposition left against medical advice (07) ==
LOC: M ED 19:40
DX: F22 Delusional disorders (principal); F19.150 Other psychoactive substance abuse with psychoactive substance-induced psychotic disorder with delusions; F17.200 Nicotine dependence, unspecified, uncomplicated; Z79.899 Other long term (current) drug therapy; Z88.8 Allergy status to other drugs, medicaments and biological substances; Z88.6 Allergy status to analgesic agent; Z88.0 Allergy status to penicillin

== ENCOUNTER 2020-05-02 06:28 | Inpatient (IN) | payer OTHER ==
[~2020-05-02] VITALS: Ht 152.4 cm; Wt 80.3 kg
[2020-05-02 08:10] LABS: HEMATOCRIT 37.2 % (36.0-47.0); MEAN CORPUSCULAR HEMOGLOBIN 28.8 pg (27.0-33.0); MEAN CORPUSCULAR HGB CONC 32.3 g/dl (32.0-36.5); MEAN CORPUSCULAR VOLUME 89.4 fl (80.0-96.0); PLATELET COUNT, AUTOMATED 363 10^3/uL (150-450); RED BLOOD COUNT 4.16 10^6/uL (4.00-5.40); WHITE BLOOD COUNT 6.9 10^3/uL (4.0-10.0)
[2020-05-02] MEDS ORDERED: CitaloPRAM (CeleXA) 20 MG TAB PO ONE (08:15)
[2020-05-02] MEDS ORDERED: LORATADINE 10 MG TAB PO ONE (08:15)
[2020-05-02] MEDS ORDERED: OMEPRAZOLE 20 MG CAP PO ONE (08:15)
[2020-05-02 08:32] LABS: AMPHETAMINES LEVEL URINE NEGATIVE (NEGATIVE); BARBITURATES URINE NEGATIVE (NEGATIVE); BENZODIAZEPINES URINE NEGATIVE (NEGATIVE); CANNABINOIDS URINE POSITIVE (NEGATIVE); COCAINE METABOLITE URINE NEGATIVE (NEGATIVE); METHADONE URINE NEGATIVE (NEGATIVE); OPIATES URINE NEGATIVE (NEGATIVE); PHENCYCLIDINE URINE NEGATIVE (NEGATIVE)
[2020-05-02 08:32] LABS: HCG, SERUM QUALITATIVE NEGATIVE (NEGATIVE)
[2020-05-02 08:46] LABS: ALT/SGPT 40 U/L (12-78); BLOOD UREA NITROGEN 16 MG/DL (7-18); CARBON DIOXIDE LEVEL 28 MEQ/L (21-32); CHLORIDE LEVEL 106 MEQ/L (98-107); CREATININE FOR GFR 0.69 MG/DL (0.55-1.30); GLOMERULAR FILTRATION RATE > 60.0 (>60); GLUCOSE, FASTING 92 MG/DL (70-100); POTASSIUM SERUM 3.9 MEQ/L (3.5-5.1); SODIUM LEVEL 139 MEQ/L (136-145)
[2020-05-02 08:47] LABS: ACETAMINOPHEN LEVEL < 2.0 UG/ML (10.0-30.0); ALBUMIN 4.1 GM/DL (3.2-5.2); BILIRUBIN,DIRECT 0.1 MG/DL (0.0-0.2); BILIRUBIN,TOTAL 0.5 MG/DL (0.2-1.0); ETHYL ALCOHOL (ETHANOL) < 0.003 % (0.000-0.010); SALICYLATE LEVEL 3.7 MG/DL (5.0-30.0); THYROID STIMULATING HORMONE 0.778 uIU/ML (0.358-3.740)
[2020-05-02] MEDS ORDERED: levETIRAcetam 250MG TABLET (KEPPRA) PO SCH (09:00)
[2020-05-02] MEDS ORDERED: risperiDONE 3 MG TAB PO SCH (09:00)
[2020-05-02] MEDS: LORATADINE 10 MG TAB PO SCH (09:00)
[2020-05-02] MEDS ORDERED: BUPRENORPHINE/NALOXONE 8-2MG SUBLINGUAL TABLET(SUBOXONE) SL SCH (09:00)
[2020-05-02] MEDS: OMEPRAZOLE 20 MG CAP PO SCH (09:00)
[2020-05-02] MEDS ORDERED: GABAPENTIN 300 MG CAP PO SCH (09:00)
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
[2020-05-02] MEDS ORDERED: NS 1,000 ML IV ONE (10:10)
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
[2020-05-02] MEDS ORDERED: APAP325T4 PO (11:35)
[2020-05-02] MEDS ORDERED: IBUP1TAB6 PO (11:35)
--- NOTE | 2020-05-02 12:23 | ECGEPIP ---
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
[2020-05-02] MEDS ORDERED: cloNIDine 0.2 MG TAB PO PRN (12:55)
[2020-05-02] MEDS ORDERED: SUMAtriptan SUCCINATE 25 MG TAB PO PRN (12:55)
[2020-05-02] MEDS ORDERED: IBUPROFEN 600MG TAB PO PRN (12:55)
[2020-05-02] MEDS ORDERED: ACETAMINOPHEN 325 MG TAB PO PRN (12:55)
[2020-05-02 12:57] VITALS: BP 126/57
[2020-05-02 15:38] VITALS: BP 104/59
[2020-05-02] MEDS: GABAPENTIN 300 MG CAP PO SCH ×2 (15:39→21:44)
[2020-05-02 16:00] VITALS: BP 104/59
[2020-05-02] MEDS: NS 1,000 ML IV SCH (17:12)
--- NOTE | 2020-05-02 17:14 | REP ---
INDICATION: neck pain COMPARISON: 04/26/2020 TECHNIQUE: Axial noncontrast images from the skull base to the thoracic inlet with coronal and sagittal re-formations This CT examination was performed using the following dose reduction techniques: Automated exposure control, adjustment of mA and/or kv according to the patient's size, and use of iterative reconstruction technique. FINDINGS: Alignment is normal. Vertebral bodies are intact. No acute fracture/compression injury or subluxation. Posterior elements and spinous processes are intact. Spinal canal is patent. Disc spaces are relatively age-appropriate and maintained.. IMPRESSION: Normal age-appropriate noncontrast cervical spine CT. No evidence for acute pathology or trauma/injury. <Electronically signed by Broderick Mondragon > 05/02/20 1170
--- NOTE | 2020-05-02 17:15 | REP ---
INDICATION: neck pain. COMPARISON: None. TECHNIQUE: Axial noncontrast images of the thoracic spine with coronal and sagittal reformations. FINDINGS: Thoracic vertebral bodies are intact and without acute fracture/compression injury or subluxation. Alignment and kyphosis maintained. Disc spaces are normal. Spinal canal is patent and normal. Posterior elements and spinous processes are intact. Paravertebral soft tissues are normal. IMPRESSION: Normal thoracic spine CT. No evidence for acute trauma/injury. <Electronically signed by Broderick Mondragon > 05/02/20 2079
--- NOTE | 2020-05-02 17:17 | REP ---
INDICATION: neck pain COMPARISON: None. TECHNIQUE: Axial contrast-enhanced images from the skull base to the thoracic inlet with coronal and sagittal reformations using 100 cc Isovue 370 intravenous contrast material. This CT examination was performed using the following dose reduction techniques: Automated exposure control, adjustment of mA and/or kv according to the patient's size, and use of iterative reconstruction technique. FINDINGS: The naso, marika and hypopharynx, larynx and subglottic trachea are normal in appearance. Parapharyngeal and retropharyngeal spaces are normal. The salivary and thyroid glands are normal in size and density. Small lymph nodes less than 1 cm in size are present in the internal jugular chains, posterior triangles, submandibular and submental areas. The lung apices are clear. The visualized sinuses are clear. Very subtle soft tissue scalp injury overlies the right frontal bone. IMPRESSION: Normal noncontrast neck CT. <Electronically signed by Broderick Mondragon > 05/02/20 [id number]
[2020-05-02 19:00] VITALS: BP 101/50
[2020-05-02] MEDS: CHLORHEXIDINE GLUCONATE 0.12 % 15ML UDC (PERIDEX ORAL RINSE) SSP SCH (21:43)
[2020-05-02] MEDS: TRIAMCINOLONE ACET 0.1% CREAM 15 GM TOP SCH (21:43)
[2020-05-02] MEDS: AMITRIPTYLINE 50 MG TAB PO SCH (21:44)
[2020-05-02] MEDS: BUPRENORPHINE/NALOXONE 8-2MG SUBLINGUAL TABLET(SUBOXONE) SL SCH (21:44)
[2020-05-02] MEDS: DOXEPIN 25 MG CAP PO SCH (21:44)
[2020-05-02] MEDS: levETIRAcetam 250MG TABLET (KEPPRA) PO SCH (21:44)
[2020-05-03] VITALS (7 sets, daily range): BP systolic 88–141; BP diastolic 50–61
[2020-05-03] MEDS: NS 1,000 ML IV SCH ×3 (01:03→20:17)
[2020-05-03] MEDS ORDERED: NS 1,000 ML IV SCH (04:30)
[2020-05-03 05:40] LABS: HEMATOCRIT 31.5 % (36.0-47.0); MEAN CORPUSCULAR HEMOGLOBIN 28.7 pg (27.0-33.0); MEAN CORPUSCULAR HGB CONC 31.1 g/dl (32.0-36.5); MEAN CORPUSCULAR VOLUME 92.1 fl (80.0-96.0); PLATELET COUNT, AUTOMATED 303 10^3/uL (150-450); RED BLOOD COUNT 3.42 10^6/uL (4.00-5.40); WHITE BLOOD COUNT 5.4 10^3/uL (4.0-10.0)
[2020-05-03 05:51] LABS: HEMOGLOBIN 9.8 g/dl (12.0-15.5)
[2020-05-03 05:59] LABS: ALT/SGPT 27 U/L (12-78); BILIRUBIN,TOTAL 0.1 MG/DL (0.2-1.0); BLOOD UREA NITROGEN 17 MG/DL (7-18); CALCIUM LEVEL 8.2 MG/DL (8.5-10.1); CARBON DIOXIDE LEVEL 28 MEQ/L (21-32); CHLORIDE LEVEL 112 MEQ/L (98-107); CREATININE FOR GFR 0.66 MG/DL (0.55-1.30); GLOMERULAR FILTRATION RATE > 60.0 (>60); GLUCOSE, FASTING 78 MG/DL (70-100); POTASSIUM SERUM 4.5 MEQ/L (3.5-5.1); SODIUM LEVEL 143 MEQ/L (136-145); TOTAL PROTEIN 5.8 GM/DL (6.4-8.2)
[2020-05-03] MEDS: CitaloPRAM (CeleXA) 20 MG TAB PO SCH (08:44)
[2020-05-03] MEDS: OMEPRAZOLE 20 MG CAP PO SCH (08:44)
[2020-05-03] MEDS: levETIRAcetam 250MG TABLET (KEPPRA) PO SCH ×2 (08:44→20:17)
[2020-05-03] MEDS: BUPRENORPHINE/NALOXONE 8-2MG SUBLINGUAL TABLET(SUBOXONE) SL SCH ×2 (08:45→20:17)
[2020-05-03] MEDS: CHLORHEXIDINE GLUCONATE 0.12 % 15ML UDC (PERIDEX ORAL RINSE) SSP SCH ×2 (08:45→20:17)
[2020-05-03] MEDS: LORATADINE 10 MG TAB PO SCH (08:45)
[2020-05-03] MEDS: GABAPENTIN 300 MG CAP PO SCH ×3 (08:45→20:17)
[2020-05-03] MEDS: TRIAMCINOLONE ACET 0.1% CREAM 15 GM TOP SCH ×2 (08:46→20:17)
[2020-05-03] MEDS ORDERED: INFLUENZA QUADRIVALENT PF VACCINE 0.5ML SYRINGE IM ONE (09:00)
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
[2020-05-03] MEDS: AMITRIPTYLINE 50 MG TAB PO SCH (20:17)
[2020-05-03] MEDS: DOXEPIN 25 MG CAP PO SCH (20:17)
[2020-05-04] VITALS: BP 111/58
[2020-05-04 04:00] VITALS: BP 122/64
[2020-05-04 05:06] LABS: HEMATOCRIT 34.1 % (36.0-47.0); HEMOGLOBIN 10.7 g/dl (12.0-15.5); MEAN CORPUSCULAR HEMOGLOBIN 29.1 pg (27.0-33.0); MEAN CORPUSCULAR HGB CONC 31.4 g/dl (32.0-36.5); MEAN CORPUSCULAR VOLUME 92.7 fl (80.0-96.0); PLATELET COUNT, AUTOMATED 322 10^3/uL (150-450); RED BLOOD COUNT 3.68 10^6/uL (4.00-5.40); WHITE BLOOD COUNT 5.6 10^3/uL (4.0-10.0)
[2020-05-04 05:33] LABS: BLOOD UREA NITROGEN 11 MG/DL (7-18); CALCIUM LEVEL 8.1 MG/DL (8.5-10.1); CARBON DIOXIDE LEVEL 28 MEQ/L (21-32); CHLORIDE LEVEL 109 MEQ/L (98-107); CREATININE FOR GFR 0.65 MG/DL (0.55-1.30); GLOMERULAR FILTRATION RATE > 60.0 (>60); GLUCOSE, FASTING 89 MG/DL (70-100); POTASSIUM SERUM 4.4 MEQ/L (3.5-5.1); SODIUM LEVEL 141 MEQ/L (136-145)
[2020-05-04] MEDS: NS 1,000 ML IV SCH (05:35)
[2020-05-04 08:00] VITALS: BP 100/56
[2020-05-04] MEDS: GABAPENTIN 300 MG CAP PO SCH (08:22)
[2020-05-04] MEDS: levETIRAcetam 250MG TABLET (KEPPRA) PO SCH (08:22)
[2020-05-04] MEDS: BUPRENORPHINE/NALOXONE 8-2MG SUBLINGUAL TABLET(SUBOXONE) SL SCH (08:22)
[2020-05-04] MEDS: OMEPRAZOLE 20 MG CAP PO SCH (08:22)
[2020-05-04] MEDS: LORATADINE 10 MG TAB PO SCH (08:23)
[2020-05-04] MEDS: TRIAMCINOLONE ACET 0.1% CREAM 15 GM TOP SCH (08:23)
[2020-05-04] MEDS: CitaloPRAM (CeleXA) 20 MG TAB PO SCH (08:23)
[2020-05-04] MEDS ORDERED: DOXY-350 PO (08:36)
[2020-05-04] MEDS: CHLORHEXIDINE GLUCONATE 0.12 % 15ML UDC (PERIDEX ORAL RINSE) SSP SCH (09:27)
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
== END 2020-05-04 10:07 | disposition home or self-care (01) | DRG 812 ==
LOC: M ED 06:28 → M ED INP 10:54 → ENRESERV 11:43 → M PCU 12:32
PROVIDERS: ADMIT Internal Medicine; ATTEND Internal Medicine
DX: T40.3X1A Poisoning by methadone, accidental (unintentional), initial encounter (principal); I95.9 Hypotension, unspecified; F25.9 Schizoaffective disorder, unspecified; G40.909 Epilepsy, unspecified, not intractable, without status epilepticus; K21.9 Gastro-esophageal reflux disease without esophagitis; G43.909 Migraine, unspecified, not intractable, without status migrainosus; M54.2 Cervicalgia; L03.113 Cellulitis of right upper limb; F19.10 Other psychoactive substance abuse, uncomplicated; D64.9 Anemia, unspecified; Z79.899 Other long term (current) drug therapy; Z88.0 Allergy status to penicillin; Z88.2 Allergy status to sulfonamides; Z88.6 Allergy status to analgesic agent; Z88.8 Allergy status to other drugs, medicaments and biological substances

== ENCOUNTER 2020-05-07 10:58 | Emergency (ER) | payer OTHER ==
[~2020-05-07 10:58] MED LIST changes: +APAP325T4 PO; +DOXY-350 PO; +IBUP1TAB6 PO
[2020-05-07 11:36] LABS: BASO % 0.5 % (0.0-1.0); EOS # 0.1 10^3/uL (0.0-0.5); EOS % 1.7 % (0.0-3.0); HEMATOCRIT 32.1 % (36.0-47.0); HEMOGLOBIN 10.7 g/dl (12.0-15.5); MEAN CORPUSCULAR HEMOGLOBIN 29.6 pg (27.0-33.0); MEAN CORPUSCULAR HGB CONC 33.3 g/dl (32.0-36.5); MEAN CORPUSCULAR VOLUME 88.7 fl (80.0-96.0); MONO # 0.7 10^3/uL (0.0-0.8); MONO % 9.8 % (2.0-8.0); NEUTROPHILS # 4.6 10^3/uL (1.5-8.5); NEUTROPHILS % 61.5 % (36.0-66.0); PLATELET COUNT, AUTOMATED 390 10^3/uL (150-450); RED BLOOD COUNT 3.62 10^6/uL (4.00-5.40); WHITE BLOOD COUNT 7.5 10^3/uL (4.0-10.0)
--- NOTE | 2020-05-07 11:59 | REP ---
INDICATION: sob COMPARISON: 04/29/2020 TECHNIQUE: Portable AP view of the chest FINDINGS: The mediastinum and cardiac silhouette are stable and within normal limits for portable technique. The lung johnson are clear without acute consolidation, effusion, or pneumothorax. Skeletal structures are intact. IMPRESSION: No acute cardiopulmonary process appreciated. <Electronically signed by Broderick Mondragon > 05/07/20 0959
[2020-05-07 12:11] LABS: ACETAMINOPHEN LEVEL < 2.0 UG/ML (10.0-30.0); ALBUMIN 3.8 GM/DL (3.2-5.2); ALT/SGPT 34 U/L (12-78); BILIRUBIN,DIRECT 0.2 MG/DL (0.0-0.2); BILIRUBIN,TOTAL 0.4 MG/DL (0.2-1.0); BLOOD UREA NITROGEN 19 MG/DL (7-18); CALCIUM LEVEL 9.3 MG/DL (8.5-10.1); CARBON DIOXIDE LEVEL 29 MEQ/L (21-32); CHLORIDE LEVEL 101 MEQ/L (98-107); ETHYL ALCOHOL (ETHANOL) < 0.003 % (0.000-0.010); GLOMERULAR FILTRATION RATE > 60.0 (>60); GLUCOSE, FASTING 123 MG/DL (70-100); LIPASE 29 U/L (73-393); POTASSIUM SERUM 4.2 MEQ/L (3.5-5.1); SALICYLATE LEVEL 2.8 MG/DL (5.0-30.0); SODIUM LEVEL 135 MEQ/L (136-145); THYROID STIMULATING HORMONE 0.592 uIU/ML (0.358-3.740)
--- NOTE | 2020-05-07 13:18 | REP ---
INDICATION: rigght flank pain; recent hcg neg 7th COMPARISON: 04/26/2020 TECHNIQUE: Axial noncontrast images from the lung bases to the pubic symphysis with coronal and sagittal reformations. This CT examination was performed using the following dose reduction techniques: Automated exposure control, adjustment of mA and/or kv according to the patient's size, and use of iterative reconstruction technique. FINDINGS: Lung bases demonstrate mild dependent atelectasis. Liver, spleen, pancreas, gallbladder, bilateral adrenal glands and kidneys are normal. Specifically, no perinephric stranding, hydroureteronephrosis, intrarenal or obstructing ureteral calculi. The enteric system is unremarkable and without obstruction or acute inflammatory process. Normal terminal ileum and appendix identified in the right lower quadrant. Pelvis demonstrates normal bladder and age-appropriate uterus/adnexa. No ascites. No free air. No adenopathy. No focal inflammatory stranding. Abdominal aorta without aneurysm. Musculoskeletal structures are intact and without acute osseous abnormality. IMPRESSION: No acute abdominopelvic pathology appreciated. Mild dependent atelectasis. <Electronically signed by Broderick Mondragon > 05/07/20 [id number]
[2020-05-07 13:27] LABS: AMPHETAMINES LEVEL URINE POSITIVE (NEGATIVE); BARBITURATES URINE NEGATIVE (NEGATIVE); BENZODIAZEPINES URINE NEGATIVE (NEGATIVE); CANNABINOIDS URINE NEGATIVE (NEGATIVE); COCAINE METABOLITE URINE NEGATIVE (NEGATIVE); METHADONE URINE NEGATIVE (NEGATIVE); OPIATES URINE NEGATIVE (NEGATIVE); PHENCYCLIDINE URINE NEGATIVE (NEGATIVE)
[2020-05-07] MEDS ORDERED: NS 1,000 ML IV ONE (14:05)
[2020-05-07 18:06] VITALS: BP 95/56
== END 2020-05-07 21:50 | disposition home or self-care (01) ==
LOC: M ED 10:58
DX: F19.10 Other psychoactive substance abuse, uncomplicated (principal); F25.9 Schizoaffective disorder, unspecified; F41.9 Anxiety disorder, unspecified; G40.909 Epilepsy, unspecified, not intractable, without status epilepticus; R51.9 Headache, unspecified; E03.9 Hypothyroidism, unspecified; B19.20 Unspecified viral hepatitis C without hepatic coma; Z79.899 Other long term (current) drug therapy; Z79.01 Long term (current) use of anticoagulants; Z79.891 Long term (current) use of opiate analgesic

== ENCOUNTER 2020-05-08 02:38 | Emergency (ER) | payer OTHER ==
[~2020-05-08] VITALS: Ht 162.6 cm; Wt 77.3 kg
[2020-05-08] MEDS ORDERED: KETOROLAC 60MG 2ML VIAL IM ONE (04:15)
--- NOTE | 2020-05-08 04:26 | REPVR ---
PROCEDURE INFORMATION: Exam: XR Right Ankle Exam date and time: 05/08/2020 3:13 AM Age: 34 years old Clinical indication: Other: Trauma TECHNIQUE: Imaging protocol: XR Right ankle. Views: 3 or more views. COMPARISON: No relevant prior studies available. FINDINGS: Bones/joints: Minimally displaced fractures of the medial and lateral malleoli. Talar dome is intact. Normal alignment. No loose bodies in the joint space. Soft tissues: Generalized soft tissue swelling. IMPRESSION: Medial and lateral malleoli fractures. Electronically signed by: Alex Lamas On 05/08/2020 04:25:40 AM
--- NOTE | 2020-05-08 04:27 | REPVR ---
PROCEDURE INFORMATION: Exam: XR Right Tibia and Fibula Exam date and time: 05/08/2020 3:13 AM Age: 34 years old Clinical indication: Other: Trauma TECHNIQUE: Imaging protocol: XR Right tibia and fibula. Views: 2 views. COMPARISON: No relevant prior studies available. FINDINGS: Bones/joints: Mildly displaced fracture of the proximal fibula. Mildly displaced medial and lateral malleolar fractures. Proximal tibia and distal femur are intact. Normal alignment. Soft tissues: Soft tissue swelling at the ankle.. IMPRESSION: 1. Mildly displaced proximal fibular fracture. 2. Medial and lateral malleoli fractures. Electronically signed by: Alex Lamas On 05/08/2020 04:27:32 AM
[2020-05-08] MEDS ORDERED: PERCOCET 5MG/325MG TAB PO ONE (06:00)
[2020-05-08 07:00] VITALS: BP 134/68
--- NOTE | 2020-05-08 08:37 | REP ---
INDICATION: trauma COMPARISON: 05/08/2020 at 2:47 a.m. TECHNIQUE: AP, lateral, bilateral oblique views. FINDINGS: Status post closed reduction and casting for medial and lateral malleolar fractures. Fractures appear reduced and unchanged. IMPRESSION: Status post closed reduction and casting for malleolar fractures. <Electronically signed by Broderick Mondragon > 05/08/20 [id number]
--- NOTE | 2020-05-08 10:05 | ER ---
ER CONSULTATION DATE: 05/08/2020 CHIEF COMPLAINT: Right ankle bimalleolar fracture. HISTORY OF PRESENT ILLNESS: This 34-year-old female tripped on some steps late last evening at 2 a.m. She was seen at [facility] Emergency Department. I was asked to assess the patient this morning by Dr. Daley who signed over to Dr. Navarro. The patient has some unknown history of perhaps contralateral side injury, she is really unsure of that. There is no loss of consciousness or head injury. She apparently has been seen in the ED at least twice over the last 24 hours. MEDICAL HISTORY: Seizures and intravenous drug use. SOCIAL HISTORY: She has intravenous drug use including Catie. She smokes 1-1/2 packs of cigarettes per day. She does not use alcohol. ALLERGIES: MANY INCLUDING PENICILLIN, DEXTROAMPHETAMINE, HALDOL, OLANZAPINE, SULFAMETHOXAZOLE/TRIMETHOPRIM, TRAZODONE. MEDICATIONS: Keppra. IMAGING DATA: Radiographs reviewed, right ankle shows minimally displaced right bimalleolar ankle fracture, transverse of medial malleolus at the level of the joint as well as slightly oblique complex fracture distal to the joint surface on the distal fibula. PHYSICAL EXAMINATION: 34-year-old female. She is mildly uncomfortable. There is a closed, moderately swollen ankle injury on the right side. No obvious deformity. No pain up to the knee. Calf is soft. She is able to wiggle toes, dorsiflex and plantarflex the foot. Normal sensation in the foot. Foot is warm and well perfused. Tibialis and posterior pulse. ASSESSMENT/PLAN: 34-year-old female who is at high risk of noncompliance. We will attempt to treat this non-operatively in a case. I placed a below-knee circumferential plaster of Malia cast with the foot in neutral and lateral molding with medial pressure. I took post-casting radiographs. These appear to be appropriately aligned. I would like to follow the patient up in one weeks' time in clinic for repeat radiographs. Her other option is recommended in bimalleolar fractures if of course open reduction and internal fixation. I explained the pros and cons, risks and benefits of this, although I think that she may do better with nonoperative cast management to minimize the potential risks of surgery given her history of intravenous drug use and noncompliance. Post-casting radiographs AP, lateral and oblique of the right ankle reveal the cast to be appropriately placed. Fractures appear minimally displaced and ankle mortise as well as joint surface appears congruent.
== END 2020-05-08 08:40 | disposition home or self-care (01) ==
LOC: M ED 02:38
DX: S82.841A Displaced bimalleolar fracture of right lower leg, initial encounter for closed fracture (principal); S82.431A Displaced oblique fracture of shaft of right fibula, initial encounter for closed fracture; W10.8XXA Fall (on) (from) other stairs and steps, initial encounter; Y92.89 Other specified places as the place of occurrence of the external cause; Y93.01 Activity, walking, marching and hiking; Y99.8 Other external cause status; F19.10 Other psychoactive substance abuse, uncomplicated; R56.9 Unspecified convulsions; G43.909 Migraine, unspecified, not intractable, without status migrainosus; F25.9 Schizoaffective disorder, unspecified; K21.9 Gastro-esophageal reflux disease without esophagitis; F17.210 Nicotine dependence, cigarettes, uncomplicated; Z88.0 Allergy status to penicillin; Z88.8 Allergy status to other drugs, medicaments and biological substances; Z88.2 Allergy status to sulfonamides; Z79.899 Other long term (current) drug therapy; Z79.2 Long term (current) use of antibiotics; Z91.19 Patient's noncompliance with other medical treatment and regimen
CPT/HCPCS: 29405; 73590; 73610; 96374; 99285; J1885

== ENCOUNTER 2020-05-09 15:31 | Emergency (ER) | payer OTHER ==
[~2020-05-09] VITALS: Ht 162.6 cm; Wt 77.0 kg
[2020-05-09] MEDS ORDERED: LORazepam 1 MG TAB PO STA (16:14)
[2020-05-10 02:01] VITALS: BP 129/75
== END 2020-05-10 02:12 | disposition home or self-care (01) ==
LOC: M ED 15:31
DX: F19.10 Other psychoactive substance abuse, uncomplicated (principal); K21.9 Gastro-esophageal reflux disease without esophagitis; F17.200 Nicotine dependence, unspecified, uncomplicated; Z88.0 Allergy status to penicillin; Z88.6 Allergy status to analgesic agent; Z88.8 Allergy status to other drugs, medicaments and biological substances

== ENCOUNTER 2020-05-10 20:51 | Emergency (ER) | payer OTHER ==
[2020-05-10] MEDS ORDERED: IBUPROFEN 800 MG TAB PO ONE (21:40)
[2020-05-10 22:01] VITALS: BP 146/95
== END 2020-05-10 22:13 | disposition home or self-care (01) ==
LOC: M ED 20:51
DX: T40.2X1A Poisoning by other opioids, accidental (unintentional), initial encounter (principal); X58.XXXA Exposure to other specified factors, initial encounter; Y92.89 Other specified places as the place of occurrence of the external cause; F45.9 Somatoform disorder, unspecified; Z79.899 Other long term (current) drug therapy

== ENCOUNTER 2020-05-19 02:05 | Emergency (ER) | payer OTHER ==
[~2020-05-19] VITALS: Ht 160.8 cm; Wt 77.0 kg
[2020-05-19 02:14] VITALS: BP 127/68
[2020-05-19] MEDS ORDERED: GI COCKTAIL 50ML BTL(HYOSCYAMINE/MAALOX/LIDOCAINE VISCOUS)(1:3:1) PO ONE (02:40)
== END 2020-05-19 02:46 | disposition home or self-care (01) ==
LOC: M ED 02:05
DX: K12.32 Oral mucositis (ulcerative) due to other drugs (principal); F15.10 Other stimulant abuse, uncomplicated; Z88.0 Allergy status to penicillin; Z88.6 Allergy status to analgesic agent; Z88.8 Allergy status to other drugs, medicaments and biological substances; Z88.1 Allergy status to other antibiotic agents; Z88.2 Allergy status to sulfonamides

== ENCOUNTER 2020-05-21 01:11 | Emergency (ER) | payer OTHER ==
[~2020-05-21] VITALS: Ht 152.4 cm; Wt 73.0 kg
[2020-05-21 05:02] VITALS: BP 130/65
== END 2020-05-21 05:04 | disposition home or self-care (01) ==
LOC: M ED 01:11
DX: F43.0 Acute stress reaction (principal); Z60.9 Problem related to social environment, unspecified; F15.10 Other stimulant abuse, uncomplicated; F17.200 Nicotine dependence, unspecified, uncomplicated; Z88.0 Allergy status to penicillin; Z88.6 Allergy status to analgesic agent; Z88.8 Allergy status to other drugs, medicaments and biological substances; Z88.2 Allergy status to sulfonamides; Z88.1 Allergy status to other antibiotic agents

== ENCOUNTER 2020-05-21 16:16 | Emergency (ER) | payer OTHER ==
[~2020-05-21] VITALS: Ht 152.4 cm; Wt 81.8 kg
[2020-05-21 19:45] VITALS: BP 123/80
== END 2020-05-21 19:48 | disposition home or self-care (01) ==
LOC: M ED 16:16
DX: F15.120 Other stimulant abuse with intoxication, uncomplicated (principal); Z88.0 Allergy status to penicillin; Z88.1 Allergy status to other antibiotic agents; Z88.2 Allergy status to sulfonamides; Z88.8 Allergy status to other drugs, medicaments and biological substances

== ENCOUNTER 2020-05-21 23:48 | Emergency (ER) | payer OTHER ==
[~2020-05-21] VITALS: Ht 152.4 cm; Wt 75.0 kg
[2020-05-22] MEDS ORDERED: AMITRIPTYLINE 50 MG TAB PO ONE (01:35)
[2020-05-22] MEDS ORDERED: cloNIDine 0.2 MG TAB PO ONE (01:35)
[2020-05-22] MEDS ORDERED: BUPRENORPHINE/NALOXONE 8-2MG SUBLINGUAL TABLET(SUBOXONE) SL ONE (01:35)
[2020-05-22] MEDS ORDERED: levETIRAcetam 250MG TABLET (KEPPRA) PO ONE (01:35)
[2020-05-22] MEDS ORDERED: GABAPENTIN 300 MG CAP PO ONE (01:35)
[2020-05-22] MEDS ORDERED: DOXYCYCLINE HYCLATE 100MG TABLET PO ONE (01:50)
[2020-05-22 02:15] VITALS: BP 142/78
[2020-05-22] MEDS ORDERED: LORazepam 2 MG TAB PO STA (06:07)
[2020-05-22 06:43] VITALS: BP 148/68
== END 2020-05-22 06:47 | disposition home or self-care (01) ==
LOC: M ED 23:48
DX: F15.122 Other stimulant abuse with intoxication with perceptual disturbance (principal); F17.200 Nicotine dependence, unspecified, uncomplicated; F10.10 Alcohol abuse, uncomplicated; Z88.0 Allergy status to penicillin; Z88.1 Allergy status to other antibiotic agents; Z88.2 Allergy status to sulfonamides; Z88.8 Allergy status to other drugs, medicaments and biological substances; Z88.6 Allergy status to analgesic agent

== ENCOUNTER 2020-05-22 08:02 | Emergency (ER) | payer OTHER ==
[~2020-05-22] VITALS: Ht 152.4 cm; Wt 75.0 kg
[2020-05-22] MEDS ORDERED: ALPRAZolam 0.5 MG TAB PO ONE (08:20)
[2020-05-22 18:28] VITALS: BP 116/72
== END 2020-05-22 18:32 | disposition home or self-care (01) ==
LOC: M ED 08:02
DX: F19.10 Other psychoactive substance abuse, uncomplicated (principal); F17.200 Nicotine dependence, unspecified, uncomplicated; B18.2 Chronic viral hepatitis C; Z88.0 Allergy status to penicillin; Z88.1 Allergy status to other antibiotic agents; Z88.2 Allergy status to sulfonamides; Z88.8 Allergy status to other drugs, medicaments and biological substances; Z88.6 Allergy status to analgesic agent

== ENCOUNTER 2020-05-30 00:11 | Emergency (ER) | payer OTHER ==
[~2020-05-30] VITALS: Ht 152.4 cm; Wt 68.1 kg
[2020-05-30 00:12] VITALS: BP 129/83
== END 2020-05-30 04:08 | disposition home or self-care (01) ==
LOC: M ED 00:11
DX: K14.8 Other diseases of tongue (principal); F19.11 Other psychoactive substance abuse, in remission; Z79.899 Other long term (current) drug therapy; Z88.0 Allergy status to penicillin; Z88.8 Allergy status to other drugs, medicaments and biological substances; Z88.2 Allergy status to sulfonamides

== ENCOUNTER 2020-05-30 07:00 | Emergency (ER) | payer OTHER ==
[~2020-05-30] VITALS: Ht 162.6 cm; Wt 71.9 kg
[2020-05-30 07:58] LABS: BASO % 0.3 % (0.0-1.0); EOS # 0.2 10^3/uL (0.0-0.5); EOS % 2.4 % (0.0-3.0); HEMATOCRIT 41.9 % (36.0-47.0); HEMOGLOBIN 13.3 g/dl (12.0-15.5); LYMPH # 1.4 10^3/uL (1.5-5.0); LYMPH % 22.9 % (24.0-44.0); MEAN CORPUSCULAR HGB CONC 31.7 g/dl (32.0-36.5); MEAN CORPUSCULAR VOLUME 91.5 fl (80.0-96.0); MONO # 0.5 10^3/uL (0.0-0.8); MONO % 8.2 % (2.0-8.0); NEUTROPHILS # 4.1 10^3/uL (1.5-8.5); NEUTROPHILS % 65.9 % (36.0-66.0); PLATELET COUNT, AUTOMATED 313 10^3/uL (150-450); RED BLOOD COUNT 4.58 10^6/uL (4.00-5.40); WHITE BLOOD COUNT 6.2 10^3/uL (4.0-10.0)
[2020-05-30 08:08] LABS: AMPHETAMINES LEVEL URINE POSITIVE (NEGATIVE); BARBITURATES URINE NEGATIVE (NEGATIVE); BENZODIAZEPINES URINE NEGATIVE (NEGATIVE); CANNABINOIDS URINE POSITIVE (NEGATIVE); COCAINE METABOLITE URINE NEGATIVE (NEGATIVE); INR 0.98; METHADONE URINE NEGATIVE (NEGATIVE); OPIATES URINE POSITIVE (NEGATIVE); PHENCYCLIDINE URINE NEGATIVE (NEGATIVE); PROTHROMBIN TIME 13.2 SECONDS (12.5-14.3)
[2020-05-30 08:09] LABS: PARTIAL THROMBOPLASTIN TIME 35.7 SECONDS (24.2-38.5)
[2020-05-30 08:32] LABS: ACETAMINOPHEN LEVEL < 2.0 UG/ML (10.0-30.0); ALBUMIN 4.4 GM/DL (3.2-5.2); ALT/SGPT 30 U/L (12-78); AMYLASE 35 U/L (25-115); BILIRUBIN,DIRECT 0.2 MG/DL (0.0-0.2); BILIRUBIN,TOTAL 0.8 MG/DL (0.2-1.0); BLOOD UREA NITROGEN 12 MG/DL (7-18); CALCIUM LEVEL 9.5 MG/DL (8.5-10.1); CARBON DIOXIDE LEVEL 28 MEQ/L (21-32); CHLORIDE LEVEL 103 MEQ/L (98-107); CK-MB VALUE MASS 3.5 NG/ML (<3.6); CPK CREATINE PHOSPHOKINASE 303 U/L (26-192); CREATININE FOR GFR 0.68 MG/DL (0.55-1.30); ETHYL ALCOHOL (ETHANOL) 0.003 % (0.000-0.010); GLOMERULAR FILTRATION RATE > 60.0 (>60); GLUCOSE, FASTING 86 MG/DL (70-100); LIPASE 52 U/L (73-393); MB/CK RELATIVE INDEX 1.16 (< OR =4); POTASSIUM SERUM 3.9 MEQ/L (3.5-5.1); SALICYLATE LEVEL 4.6 MG/DL (5.0-30.0); SODIUM LEVEL 138 MEQ/L (136-145); TOTAL PROTEIN 8.5 GM/DL (6.4-8.2); TROPONIN I < 0.02 NG/ML (< 0.10)
[2020-05-30 11:01] LABS: CK-MB VALUE MASS 2.8 NG/ML (<3.6); CPK CREATINE PHOSPHOKINASE 247 U/L (26-192); MB/CK RELATIVE INDEX 1.13 (< OR =4); TROPONIN I < 0.02 NG/ML (< 0.10)
[2020-05-30 12:35] VITALS: BP 135/78
--- NOTE | 2020-05-30 19:19 | ECGEPIP ---
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
--- NOTE | 2020-05-30 19:21 | ECGEPIP ---
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
[2020-06-03 12:55] LABS: HEMATOCRIT 41.5 % (36.0-47.0); HEMOGLOBIN 13.7 g/dl (12.0-15.5); MEAN CORPUSCULAR HEMOGLOBIN 29.1 pg (27.0-33.0); MEAN CORPUSCULAR VOLUME 88.1 fl (80.0-96.0); PLATELET COUNT, AUTOMATED 370 10^3/uL (150-450); RED BLOOD COUNT 4.71 10^6/uL (4.00-5.40)
[2020-06-03 13:26] LABS: ALT/SGPT 36 U/L (12-78); BILIRUBIN,TOTAL 0.4 MG/DL (0.2-1.0); BLOOD UREA NITROGEN 10 MG/DL (7-18); CALCIUM LEVEL 9.8 MG/DL (8.5-10.1); CARBON DIOXIDE LEVEL 27 MEQ/L (21-32); CHLORIDE LEVEL 106 MEQ/L (98-107); CREATININE FOR GFR 0.72 MG/DL (0.55-1.30); GLOMERULAR FILTRATION RATE > 60.0 (>60); GLUCOSE, FASTING 97 MG/DL (70-100); POTASSIUM SERUM 4.7 MEQ/L (3.5-5.1); SODIUM LEVEL 137 MEQ/L (136-145); TOTAL PROTEIN 8.2 GM/DL (6.4-8.2)
== END 2020-05-30 12:39 | disposition home or self-care (01) ==
LOC: M ED 07:00
DX: R07.9 Chest pain, unspecified (principal); R10.9 Unspecified abdominal pain; B18.2 Chronic viral hepatitis C; E07.9 Disorder of thyroid, unspecified; F25.9 Schizoaffective disorder, unspecified; F33.9 Major depressive disorder, recurrent, unspecified; F41.9 Anxiety disorder, unspecified; F17.200 Nicotine dependence, unspecified, uncomplicated; F15.10 Other stimulant abuse, uncomplicated; Z79.899 Other long term (current) drug therapy; Z88.0 Allergy status to penicillin; Z88.8 Allergy status to other drugs, medicaments and biological substances; Z88.2 Allergy status to sulfonamides; Z88.1 Allergy status to other antibiotic agents

== ENCOUNTER 2020-05-31 22:28 | Emergency (ER) | payer OTHER ==
[~2020-05-31] VITALS: Ht 152.4 cm; Wt 69.3 kg
[2020-05-31 22:28] VITALS: BP 136/89
[2020-06-02] MEDS ORDERED: GABA-845 PO (21:57)
[2020-06-02] MEDS ORDERED: SUCR1TAB56 PO (21:57)
[2020-06-02] MEDS ORDERED: GABA600T4 PO (22:51)
== END 2020-06-01 02:45 | disposition left against medical advice (07) ==
LOC: M ED 22:28
DX: Z76.5 Malingerer [conscious simulation] (principal); R45.5 Hostility; F19.10 Other psychoactive substance abuse, uncomplicated; Z88.0 Allergy status to penicillin; Z88.8 Allergy status to other drugs, medicaments and biological substances; Z88.2 Allergy status to sulfonamides; Z79.899 Other long term (current) drug therapy; Z79.891 Long term (current) use of opiate analgesic

== ENCOUNTER 2020-06-02 12:58 | Inpatient (IN) | payer MEDICAID, OTHER ==
[~2020-06-02] VITALS: Ht 152.4 cm; Wt 72.3 kg
[2020-06-02 16:28] LABS: BASO % 0.7 % (0.0-1.0); EOS # 0.1 10^3/uL (0.0-0.5); EOS % 2.2 % (0.0-3.0); HEMATOCRIT 41.8 % (36.0-47.0); HEMOGLOBIN 13.5 g/dl (12.0-15.5); LYMPH # 1.8 10^3/uL (1.5-5.0); LYMPH % 30.2 % (24.0-44.0); MEAN CORPUSCULAR HEMOGLOBIN 29.1 pg (27.0-33.0); MEAN CORPUSCULAR HGB CONC 32.3 g/dl (32.0-36.5); MEAN CORPUSCULAR VOLUME 90.1 fl (80.0-96.0); MONO # 0.6 10^3/uL (0.0-0.8); MONO % 9.6 % (2.0-8.0); NEUTROPHILS # 3.4 10^3/uL (1.5-8.5); PLATELET COUNT, AUTOMATED 393 10^3/uL (150-450); RED BLOOD COUNT 4.64 10^6/uL (4.00-5.40); WHITE BLOOD COUNT 5.9 10^3/uL (4.0-10.0)
[2020-06-02 16:51] LABS: AMPHETAMINES LEVEL URINE NEGATIVE (NEGATIVE); BARBITURATES URINE NEGATIVE (NEGATIVE); BENZODIAZEPINES URINE NEGATIVE (NEGATIVE); CANNABINOIDS URINE POSITIVE (NEGATIVE); COCAINE METABOLITE URINE NEGATIVE (NEGATIVE); METHADONE URINE NEGATIVE (NEGATIVE); OPIATES URINE NEGATIVE (NEGATIVE); PHENCYCLIDINE URINE NEGATIVE (NEGATIVE)
[2020-06-02 17:04] LABS: ACETAMINOPHEN LEVEL < 2.0 UG/ML (10.0-30.0); ETHYL ALCOHOL (ETHANOL) < 0.003 % (0.000-0.010); SALICYLATE LEVEL 3.6 MG/DL (5.0-30.0); THYROID STIMULATING HORMONE 0.123 uIU/ML (0.358-3.740)
[2020-06-02 17:11] LABS: HCG, SERUM QUALITATIVE NEGATIVE (NEGATIVE)
[2020-06-02] MEDS: CHLORHEXIDINE GLUCONATE 0.12 % 15ML UDC (PERIDEX ORAL RINSE) SSP SCH (21:00)
[2020-06-02] MEDS: GABAPENTIN 300 MG CAP PO SCH (21:00)
[2020-06-02] MEDS: levETIRAcetam 250MG TABLET (KEPPRA) PO SCH (21:00)
[2020-06-02] MEDS: DOXEPIN 25 MG CAP PO SCH (21:00)
[2020-06-02] MEDS: SUCRALFATE 1 GM TAB PO SCH (21:00)
[2020-06-02] MEDS ORDERED: AMITRIPTYLINE 50 MG TAB PO SCH (21:00)
[2020-06-02] MEDS ORDERED: MOM 30ML SUSPENSION UDC PO PRN (21:40)
[2020-06-02] MEDS ORDERED: OLANZapine ORAL DISINTEGRATING TAB 5MG PO PRN (21:40)
[2020-06-02] MEDS ORDERED: MAALOX 30 ML SUSP *UDC PO PRN (21:40)
[2020-06-02 21:44] LABS: BLOOD UREA NITROGEN 13 MG/DL (7-18); CALCIUM LEVEL 9.9 MG/DL (8.5-10.1); CARBON DIOXIDE LEVEL 28 MEQ/L (21-32); CHLORIDE LEVEL 103 MEQ/L (98-107); CREATININE FOR GFR 0.63 MG/DL (0.55-1.30); GLOMERULAR FILTRATION RATE > 60.0 (>60); GLUCOSE, FASTING 112 MG/DL (70-100); SODIUM LEVEL 139 MEQ/L (136-145)
[2020-06-02] MEDS ORDERED: GABA-845 PO (21:57)
[2020-06-02] MEDS ORDERED: SUCR1TAB56 PO (21:57)
[2020-06-02] MEDS ORDERED: GABA600T4 PO (22:51)
[2020-06-02] MEDS ORDERED: SUMAtriptan SUCCINATE 25 MG TAB PO PRN (23:45)
[2020-06-03 00:12] VITALS: BP 105/59
--- NOTE | 2020-06-03 01:27 | ECGEPIP ---
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
[2020-06-03] MEDS: CHLORHEXIDINE GLUCONATE 0.12 % 15ML UDC (PERIDEX ORAL RINSE) SSP SCH ×2 (09:00→20:19)
[2020-06-03] MEDS: SUCRALFATE 1 GM TAB PO SCH ×2 (09:58→20:22)
[2020-06-03] MEDS: CitaloPRAM (CeleXA) 20 MG TAB PO SCH (09:59)
[2020-06-03] MEDS: levETIRAcetam 250MG TABLET (KEPPRA) PO SCH ×2 (09:59→20:21)
[2020-06-03] MEDS: NICOTINE 21MG/24HR 1 EA TRANSDERMAL TD SCH (09:59)
[2020-06-03] MEDS: OMEPRAZOLE 20 MG CAP PO SCH (09:59)
[2020-06-03] MEDS: GABAPENTIN 300 MG CAP PO SCH ×3 (09:59→20:21)
[2020-06-03] MEDS: LORATADINE 10 MG TAB PO SCH (09:59)
[2020-06-03] MEDS: TRIAMCINOLONE ACET 0.1% CREAM 80 GM TOP SCH ×2 (10:00→20:22)
[2020-06-03] MEDS: BUPRENORPHINE/NALOXONE 8-2MG SUBLINGUAL TABLET(SUBOXONE) SL SCH ×2 (11:36→20:21)
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
[2020-06-03 16:45] VITALS: BP 140/81
[2020-06-03] MEDS ORDERED: LURASIDONE HCL 40 MG TAB (LATUDA) PO SCH (18:00)
[2020-06-03] MEDS: DOXEPIN 25 MG CAP PO SCH (20:21)
[2020-06-03] MEDS: ACETAMINOPHEN TAB 650MG DOSE (2X325MG) PO PRN (20:21)
[2020-06-03] MEDS: cloNIDine 0.2 MG TAB PO PRN (20:26)
[2020-06-04] MEDS: SUCRALFATE 1 GM TAB PO SCH ×2 (08:34→20:33)
[2020-06-04] MEDS: levETIRAcetam 250MG TABLET (KEPPRA) PO SCH ×2 (08:34→20:33)
[2020-06-04] MEDS: LORATADINE 10 MG TAB PO SCH (08:35)
[2020-06-04] MEDS: CHLORHEXIDINE GLUCONATE 0.12 % 15ML UDC (PERIDEX ORAL RINSE) SSP SCH ×2 (08:36→20:32)
[2020-06-04] MEDS: NICOTINE 21MG/24HR 1 EA TRANSDERMAL TD SCH (08:36)
[2020-06-04] MEDS: OMEPRAZOLE 20 MG CAP PO SCH (08:36)
[2020-06-04] MEDS: TRIAMCINOLONE ACET 0.1% CREAM 80 GM TOP SCH ×2 (08:36→20:32)
[2020-06-04] MEDS: GABAPENTIN 300 MG CAP PO SCH ×3 (08:36→20:33)
[2020-06-04] MEDS: CitaloPRAM (CeleXA) 20 MG TAB PO SCH (08:36)
[2020-06-04] MEDS: BUPRENORPHINE/NALOXONE 8-2MG SUBLINGUAL TABLET(SUBOXONE) SL SCH ×2 (08:40→20:33)
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
[2020-06-04] MEDS: IBUPROFEN 600MG TAB PO PRN (14:48)
--- NOTE | 2020-06-04 15:11 | MHIPN ---
[facility] PROGRESS NOTE DATE: 06/04/2020 SUBJECTIVE: "I'm anxious and still manic." OBJECTIVE: She is a 35-year-old female, single, mother of three children, homeless. Came to the emergency room to get medications filled and expressed suicidal thoughts. She has a history of multiple psychiatric hospitalizations. She has a history of auditory hallucinations. She has been diagnosed with schizoaffective disorder, bipolar type, posttraumatic stress disorder, and polysubstance use disorder. Patient reports she is allergic to most of the antipsychotics and mood stabilizers; however, she agreed to take Latuda, and she reports she has no side effects on the medication. MENTAL STATUS EXAMINATION: She is lying in bed, still speaking in pressure speech and circumstantial. Reported that she has anxiety. Somewhat disheveled. Insight and judgment are limited. Mood is somewhat depressed and irritable. Thought content: Denied any suicidal thoughts; however, continues to have some paranoid delusions, which are persecutory type. VITAL SIGNS: Temperature 97, pulse is 90, respirations 16, blood pressure 140/81, pulse oximetry 99. LABORATORY DATA: Hematology: CBC within normal limits. CMP within normal limits. Toxicology: She was positive for cannabinoids. DIAGNOSES: 1. Schizoaffective disorder, bipolar type. 2. Polysubstance dependence. 3. Posttraumatic stress disorder. PLAN: Increase her Latuda to 60 mg at night. Continue rest of the medications. ESTIMATED LENGTH OF STAY: 4-5 days. TIME SPENT ON THE PATIENT: 25 minutes.
--- NOTE | 2020-06-04 16:35 | REP ---
INDICATION: right ankle fracture on 05/08/20 COMPARISON: 05/08/2020. TECHNIQUE: There are four views. FINDINGS: There is a by malleolar fracture in satisfactory position and alignment. There is circumferential soft tissue edema. The mortise is symmetric. Talar dome is unremarkable. Mineralization and joint spaces are unremarkable. IMPRESSION: Nondisplaced by malleolar fracture. Circumferential soft tissue edema. <Electronically signed by Ron Helms > 06/04/20 [id number]
[2020-06-04] MEDS: LURASIDONE HCL 40 MG TAB (LATUDA) PO SCH (18:29)
[2020-06-04 20:01] VITALS: BP 111/51
[2020-06-04] MEDS: DOXEPIN 25 MG CAP PO SCH (20:33)
[2020-06-05 08:03] VITALS: BP 113/55
[2020-06-05] MEDS: SUCRALFATE 1 GM TAB PO SCH ×2 (08:11→20:18)
[2020-06-05] MEDS: CitaloPRAM (CeleXA) 10 MG TABLET PO SCH (08:11)
[2020-06-05] MEDS: OMEPRAZOLE 20 MG CAP PO SCH (08:12)
[2020-06-05] MEDS: levETIRAcetam 250MG TABLET (KEPPRA) PO SCH ×2 (08:12→20:19)
[2020-06-05] MEDS: LORATADINE 10 MG TAB PO SCH (08:12)
[2020-06-05] MEDS: GABAPENTIN 300 MG CAP PO SCH ×3 (08:12→20:19)
[2020-06-05] MEDS: NICOTINE 21MG/24HR 1 EA TRANSDERMAL TD SCH (08:13)
[2020-06-05] MEDS: TRIAMCINOLONE ACET 0.1% CREAM 80 GM TOP SCH ×2 (08:13→20:20)
[2020-06-05] MEDS: CHLORHEXIDINE GLUCONATE 0.12 % 15ML UDC (PERIDEX ORAL RINSE) SSP SCH ×2 (08:13→20:20)
[2020-06-05] MEDS: BUPRENORPHINE/NALOXONE 8-2MG SUBLINGUAL TABLET(SUBOXONE) SL SCH ×2 (09:09→20:20)
--- NOTE | 2020-06-05 16:07 | MHIPNPDOC ---
[facility] Progress Note Progress Note DATE OF SERVICE: 06/05/20 SUBJECTIVE: "I'm sleepy will talk later" OBJECTIVE: She is a 35-year-old female, single, mother of three children, homeless. Came to the emergency room to get medications filled and expressed suicidal thoughts. She has a history of multiple psychiatric hospitalizations. She has a history of auditory hallucinations. She has been diagnosed with schizoaffective disorder, bipolar type, posttraumatic stress disorder, and polysubstance use disorder. Patient reports she is allergic to most of the antipsychotics and mood stabilizers; however, she agreed to take Latuda, and she reports she has no side effects on the medication. She is attending groups. MENTAL STATUS EXAMINATION: She is lying in bed, still speaking in pressure speech and circumstantial. Reported that she has anxiety. Somewhat disheveled. Insight and judgment are limited. Mood is somewhat depressed and irritable. Thought content: Denied any suicidal thoughts; however, continues to have some paranoid delusions, which are persecutory type. LABORATORY DATA: Hematology: CBC within normal limits. CMP within normal limits. Toxicology: She was positive for cannabinoids. DIAGNOSES: 1. Schizoaffective disorder, bipolar type. 2. Polysubstance dependence. 3. Posttraumatic stress disorder. PLAN: continue Latuda to 60 mg at night. Continue rest of the medications. ESTIMATED LENGTH OF STAY: 4-5 days. TIME SPENT ON THE PATIENT: 25 minutes. Vital Signs Vital Signs Date Time Temp Pulse Resp B/P (MAP) Pulse Ox O2 Delivery O2 Flow Rate FiO2 06/05/20 08:03 97.7 80 20 113/55 (74) 99 06/03/20 00:12 Room Air Current Medications Current Medications Medications (Trade) Dose Ordered Sig/Carlos Route PRN Reason Start Time Stop Time Status Last Admin Dose Admin Acetaminophen (Tylenol Tab) 650 mg Q6HP PRN PO HEADACHE or DISCOMFORT 06/02/20 21:40 06/03/20 20:21 Al Hydrox/Mg Hydrox/Simethicone (Mylanta) 30 ml Q4HP PRN PO HEARTBURN/INDIGESTION 06/02/20 21:40 Amitriptyline HCl (Elavil) 50 mg QHS PO 06/02/20 21:00 06/03/20 10:47 DC Buprenorphine/ Naloxone (Suboxone 8/2mg) 1 tab BID SL 06/03/20 09:00 06/05/20 09:09 Chlorhexidine Gluconate (Peridex Oral Rinse) 15 ml BID SSP 06/02/20 21:00 06/05/20 08:13 Citalopram Hydrobromide (CeleXA) 10 mg DAILY PO 06/05/20 09:00 06/05/20 08:11 Citalopram Hydrobromide (CeleXA) 20 mg DAILY PO 06/03/20 09:00 06/04/20 14:07 DC 06/04/20 08:36 Clonidine HCl (Catapres) 0.2 mg TID PRN PO ANXIETY 06/02/20 23:45 06/03/20 20:26 Doxepin HCl (SINEquan) 25 mg QHS PO 06/02/20 21:00 06/04/20 20:33 Gabapentin (Neurontin) 600 mg TID PO 06/02/20 21:00 06/05/20 08:12 Home Med (Med Rec Complete!) ASDIRECTED XX 06/02/20 22:55 06/02/20 22:54 DC Hydroxyzine HCl (Atarax) 25 mg Q4HP PRN PO ANXIETY/AGITATION 06/04/20 14:15 Ibuprofen (Advil) 600 mg TID PRN PO PAIN 06/02/20 23:45 06/04/20 14:48 Levetiracetam (Keppra) 1,000 mg BID PO 06/02/20 21:00 06/05/20 08:12 Loratadine (Claritin) 10 mg DAILY PO 06/03/20 09:00 06/05/20 08:12 Lurasidone HCl (Latuda) 40 mg DAILY@18 PO 06/03/20 18:00 06/04/20 14:06 DC 06/03/20 18:19 Lurasidone HCl (Latuda) 60 mg DAILY@18 PO 06/04/20 18:00 06/04/20 18:29 Magnesium Hydroxide (Milk Of Magnesia) 30 ml DAILYPRN PRN PO CONSTIPATION 06/02/20 21:40 Nicotine (Nicoderm Cq 21mg) 1 patch DAILY TD 06/03/20 09:00 06/05/20 08:13 Olanzapine (ZyPREXA ZYDIS) 5 mg Q4HP PRN PO ANXIETY/AGITATION 06/02/20 21:40 Omeprazole (PriLOSEC) 20 mg DAILY PO 06/03/20 09:00 06/05/20 08:12 Sucralfate (Carafate) 1 gm BID PO 06/02/20 21:00 06/05/20 08:11 Sumatriptan Succinate (Imitrex) 50 mg DAILY PRN PO MIGRAINE 06/02/20 23:45 Trazodone HCl (Desyrel) 50 mg QHSP PRN PO INSOMNIA 06/02/20 21:40 Triamcinolone Acetonide (Kenalog 0.1% Cream) TO AFFECTED AREA(S) BID TOP 06/03/20 09:00 06/05/20 08:13 Allergies Coded Allergies: Penicillins (Verified Allergy, Unknown, 05/08/20) dextroamphetamine (Verified Allergy, Unknown, 05/08/20) haloperidol (Verified Allergy, Unknown, 05/08/20) olanzapine (Verified Allergy, Unknown, 05/08/20) sulfamethoxazole (Verified Allergy, Unknown, 05/08/20) trimethoprim (Verified Allergy, Unknown, 05/08/20) ziprasidone (Verified Allergy, Unknown, 05/08/20) NACHO CONTRERAS MD Jun 05, 2020 16:07
[2020-06-05] MEDS: LURASIDONE HCL 40 MG TAB (LATUDA) PO SCH (17:32)
[2020-06-05] MEDS: traZODone 50 MG TAB PO PRN (20:19)
[2020-06-05] MEDS: ACETAMINOPHEN TAB 650MG DOSE (2X325MG) PO PRN (20:19)
[2020-06-05] MEDS: DOXEPIN 25 MG CAP PO SCH (20:20)
[2020-06-06 06:00] VITALS: BP 142/68
[2020-06-06] MEDS: TRIAMCINOLONE ACET 0.1% CREAM 80 GM TOP SCH ×2 (08:04→21:38)
[2020-06-06] MEDS: CitaloPRAM (CeleXA) 10 MG TABLET PO SCH (08:05)
[2020-06-06] MEDS: SUCRALFATE 1 GM TAB PO SCH ×2 (08:05→21:37)
[2020-06-06] MEDS: levETIRAcetam 250MG TABLET (KEPPRA) PO SCH ×2 (08:05→21:38)
[2020-06-06] MEDS: OMEPRAZOLE 20 MG CAP PO SCH (08:06)
[2020-06-06] MEDS: GABAPENTIN 300 MG CAP PO SCH ×3 (08:06→21:37)
[2020-06-06] MEDS: LORATADINE 10 MG TAB PO SCH (08:06)
[2020-06-06] MEDS: CHLORHEXIDINE GLUCONATE 0.12 % 15ML UDC (PERIDEX ORAL RINSE) SSP SCH ×2 (08:07→21:39)
[2020-06-06] MEDS: NICOTINE 21MG/24HR 1 EA TRANSDERMAL TD SCH (08:07)
[2020-06-06] MEDS: IBUPROFEN 600MG TAB PO PRN (08:27)
[2020-06-06] MEDS: BUPRENORPHINE/NALOXONE 8-2MG SUBLINGUAL TABLET(SUBOXONE) SL SCH ×2 (09:31→21:37)
--- NOTE | 2020-06-06 11:08 | MHIPNPDOC ---
[facility] Progress Note Progress Note DATE OF SERVICE: 06/06/20 SUBJECTIVE: "I'm doing better little tired today" OBJECTIVE: She is a 35-year-old female, single, mother of three children, homeless. Came to the emergency room to get medications filled and expressed suicidal thoughts. She has a history of multiple psychiatric hospitalizations. She has a history of auditory hallucinations. She has been diagnosed with schizoaffective disorder, bipolar type, posttraumatic stress disorder, and polysubstance use disorder. Patient reports she is allergic to most of the antipsychotics and mood stabilizers; however, she agreed to take Latuda, and she reports she has no side effects on the medication. She is attending groups. No behavioral problems. MENTAL STATUS EXAMINATION: She is lying in bed, still speaking in pressure speech and circumstantial. Reported that she has anxiety. Somewhat disheveled. Insight and judgment are limited. Mood is somewhat depressed and irritable. Thought content: Denied any suicidal thoughts; however, continues to have some paranoid delusions, which are persecutory type. LABORATORY DATA: Hematology: CBC within normal limits. CMP within normal limits. Toxicology: She was positive for cannabinoids. DIAGNOSES: 1. Schizoaffective disorder, bipolar type. 2. Polysubstance dependence. 3. Posttraumatic stress disorder. PLAN: continue Latuda to 60 mg at night. Continue rest of the medications. ESTIMATED LENGTH OF STAY: 4-5 days. TIME SPENT ON THE PATIENT: 25 minutes. Vital Signs Vital Signs Date Time Temp Pulse Resp B/P (MAP) Pulse Ox O2 Delivery O2 Flow Rate FiO2 06/06/20 06:00 97.4 83 20 142/68 (92) 100 06/03/20 00:12 Room Air Current Medications Current Medications Medications (Trade) Dose Ordered Sig/Carlos Route PRN Reason Start Time Stop Time Status Last Admin Dose Admin Acetaminophen (Tylenol Tab) 650 mg Q6HP PRN PO HEADACHE or DISCOMFORT 06/02/20 21:40 06/05/20 20:19 Al Hydrox/Mg Hydrox/Simethicone (Mylanta) 30 ml Q4HP PRN PO HEARTBURN/INDIGESTION 06/02/20 21:40 Amitriptyline HCl (Elavil) 50 mg QHS PO 06/02/20 21:00 06/03/20 10:47 DC Buprenorphine/ Naloxone (Suboxone 8/2mg) 1 tab BID SL 06/03/20 09:00 06/06/20 09:31 Chlorhexidine Gluconate (Peridex Oral Rinse) 15 ml BID SSP 06/02/20 21:00 06/06/20 08:07 Citalopram Hydrobromide (CeleXA) 10 mg DAILY PO 06/05/20 09:00 06/06/20 08:05 Citalopram Hydrobromide (CeleXA) 20 mg DAILY PO 06/03/20 09:00 06/04/20 14:07 DC 06/04/20 08:36 Clonidine HCl (Catapres) 0.2 mg TID PRN PO ANXIETY 06/02/20 23:45 06/03/20 20:26 Doxepin HCl (SINEquan) 25 mg QHS PO 06/02/20 21:00 06/05/20 20:20 Gabapentin (Neurontin) 600 mg TID PO 06/02/20 21:00 06/06/20 08:06 Home Med (Med Rec Complete!) ASDIRECTED XX 06/02/20 22:55 06/02/20 22:54 DC Hydroxyzine HCl (Atarax) 25 mg Q4HP PRN PO ANXIETY/AGITATION 06/04/20 14:15 Ibuprofen (Advil) 600 mg TID PRN PO PAIN 06/02/20 23:45 06/06/20 08:27 Levetiracetam (Keppra) 1,000 mg BID PO 06/02/20 21:00 06/06/20 08:05 Loratadine (Claritin) 10 mg DAILY PO 06/03/20 09:00 06/06/20 08:06 Lurasidone HCl (Latuda) 40 mg DAILY@18 PO 06/03/20 18:00 06/04/20 14:06 DC 06/03/20 18:19 Lurasidone HCl (Latuda) 60 mg DAILY@18 PO 06/04/20 18:00 06/05/20 17:32 Magnesium Hydroxide (Milk Of Magnesia) 30 ml DAILYPRN PRN PO CONSTIPATION 06/02/20 21:40 Nicotine (Nicoderm Cq 21mg) 1 patch DAILY TD 06/03/20 09:00 06/06/20 08:07 Olanzapine (ZyPREXA ZYDIS) 5 mg Q4HP PRN PO ANXIETY/AGITATION 06/02/20 21:40 Omeprazole (PriLOSEC) 20 mg DAILY PO 06/03/20 09:00 06/06/20 08:06 Sucralfate (Carafate) 1 gm BID PO 06/02/20 21:00 06/06/20 08:05 Sumatriptan Succinate (Imitrex) 50 mg DAILY PRN PO MIGRAINE 06/02/20 23:45 Trazodone HCl (Desyrel) 50 mg QHSP PRN PO INSOMNIA 06/02/20 21:40 06/05/20 20:19 Triamcinolone Acetonide (Kenalog 0.1% Cream) TO AFFECTED AREA(S) BID TOP 06/03/20 09:00 06/06/20 08:04 Allergies Coded Allergies: Penicillins (Verified Allergy, Unknown, 05/08/20) dextroamphetamine (Verified Allergy, Unknown, 05/08/20) haloperidol (Verified Allergy, Unknown, 05/08/20) olanzapine (Verified Allergy, Unknown, 05/08/20) sulfamethoxazole (Verified Allergy, Unknown, 05/08/20) trimethoprim (Verified Allergy, Unknown, 05/08/20) ziprasidone (Verified Allergy, Unknown, 05/08/20) NACHO CONTRERAS MD Jun 06, 2020 11:08
--- NOTE | 2020-06-06 14:28 | IPNPDOC ---
Text Note Date of Service The patient was seen on 06/06/20. NOTE Patient should remain non weight bearing and use CAM boots on the right foot during ambulation. If CAM boots cannot be arranged she will need another cast placed. Please consult Dr Enmanuel Guardado if boots cannot be arranged. I have already spoken to him before about this patient. He is the orthopedic surgeon who originally saw her and placed the cast on 05/08/20. Patient will need to foll ow up with Dr Guardado upon discharge. VS,Fishbone, I+O VS, Alexandrebone, I+O Vital Signs Date Time Temp Pulse Resp B/P (MAP) Pulse Ox O2 Delivery O2 Flow Rate FiO2 06/06/20 06:00 97.4 83 20 142/68 (92) 100 06/03/20 00:12 Room Air RAMONE MADDEN MD Jun 06, 2020 14:28
[2020-06-06] MEDS: LURASIDONE HCL 40 MG TAB (LATUDA) PO SCH (17:29)
[2020-06-06] MEDS: DOXEPIN 25 MG CAP PO SCH (21:37)
[2020-06-06] MEDS: traZODone 50 MG TAB PO PRN (21:37)
[2020-06-07 06:45] VITALS: BP 141/81
[2020-06-07] MEDS: OMEPRAZOLE 20 MG CAP PO SCH (08:17)
[2020-06-07] MEDS: BUPRENORPHINE/NALOXONE 8-2MG SUBLINGUAL TABLET(SUBOXONE) SL SCH ×2 (08:17→22:16)
[2020-06-07] MEDS: levETIRAcetam 250MG TABLET (KEPPRA) PO SCH ×2 (08:17→22:16)
[2020-06-07] MEDS: GABAPENTIN 300 MG CAP PO SCH ×3 (08:17→22:16)
[2020-06-07] MEDS: NICOTINE 21MG/24HR 1 EA TRANSDERMAL TD SCH (08:17)
[2020-06-07] MEDS: TRIAMCINOLONE ACET 0.1% CREAM 80 GM TOP SCH ×2 (08:17→22:15)
[2020-06-07] MEDS: SUCRALFATE 1 GM TAB PO SCH ×2 (08:18→22:16)
[2020-06-07] MEDS: LORATADINE 10 MG TAB PO SCH (08:18)
[2020-06-07] MEDS: CitaloPRAM (CeleXA) 10 MG TABLET PO SCH (08:18)
[2020-06-07] MEDS: CHLORHEXIDINE GLUCONATE 0.12 % 15ML UDC (PERIDEX ORAL RINSE) SSP SCH ×2 (08:18→22:15)
[2020-06-07] MEDS: IBUPROFEN 600MG TAB PO PRN ×2 (08:20→15:32)
[2020-06-07 08:22] VITALS: BP 118/76
[2020-06-07] MEDS: cloNIDine 0.2 MG TAB PO PRN (08:22)
[2020-06-07 13:20] LABS: FREE T4 0.95 NG/DL (0.76-1.46); THYROID STIMULATING HORMONE 0.82 uIU/ML (0.358-3.740)
--- NOTE | 2020-06-07 15:16 | MHIPNPDOC ---
[facility] Progress Note Progress Note DATE OF SERVICE: 06/07/20 SUBJECTIVE: "I'm doing better little tired today"I am still hearing voices ,I try to ignore them. OBJECTIVE: She is a 35-year-old female, single, mother of three children, homeless. Came to the emergency room to get medications filled and expressed suicidal thoughts. She has a history of multiple psychiatric hospitalizations. She has a history of auditory hallucinations. She has been diagnosed with schizoaffective disorder, bipolar type, posttraumatic stress disorder, and polysubstance use disorder. Patient reports she is allergic to most of the antipsychotics and mood stabilizers; however, she agreed to take Latuda, and she reports she has no side effects on the medication. She is attending groups. No behavioral problems.Denied any side effect of medications. MENTAL STATUS EXAMINATION: She is lying in bed, . Reported that she has anxiety. Somewhat disheveled. Insight and judgment are limited. Mood is somewhat depressed and irritable.Thought process goal directed Thought content: Denied any suicidal thoughts; however, continues to have some auditory hallucinations. LABORATORY DATA: Hematology: CBC within normal limits. CMP within normal limits. Toxicology: She was positive for cannabinoids. DIAGNOSES: 1. Schizoaffective disorder, bipolar type. 2. Polysubstance dependence. 3. Posttraumatic stress disorder. PLAN: continue Latuda to 60 mg at night. Continue rest of the medications. ESTIMATED LENGTH OF STAY: 4-5 days. TIME SPENT ON THE PATIENT: 25 minutes. Vital Signs Vital Signs Date Time Temp Pulse Resp B/P (MAP) Pulse Ox O2 Delivery O2 Flow Rate FiO2 06/07/20 08:22 118/76 06/07/20 06:45 97.6 92 18 99 Room Air Laboratory Data 24H Labs Laboratory Tests 2 06/07/20 12:06: Thyroid Stimulating Hormone (TSH) 0.820, Free Thyroxine 0.95 Current Medications Current Medications Medications (Trade) Dose Ordered Sig/Carlos Route PRN Reason Start Time Stop Time Status Last Admin Dose Admin Acetaminophen (Tylenol Tab) 650 mg Q6HP PRN PO HEADACHE or DISCOMFORT 06/02/20 21:40 06/05/20 20:19 Al Hydrox/Mg Hydrox/Simethicone (Mylanta) 30 ml Q4HP PRN PO HEARTBURN/INDIGESTION 06/02/20 21:40 Amitriptyline HCl (Elavil) 50 mg QHS PO 06/02/20 21:00 06/03/20 10:47 DC Buprenorphine/ Naloxone (Suboxone 8/2mg) 1 tab BID SL 06/03/20 09:00 06/07/20 08:17 Chlorhexidine Gluconate (Peridex Oral Rinse) 15 ml BID SSP 06/02/20 21:00 06/07/20 08:18 Citalopram Hydrobromide (CeleXA) 10 mg DAILY PO 06/05/20 09:00 06/07/20 08:18 Citalopram Hydrobromide (CeleXA) 20 mg DAILY PO 06/03/20 09:00 06/04/20 14:07 DC 06/04/20 08:36 Clonidine HCl (Catapres) 0.2 mg TID PRN PO ANXIETY 06/02/20 23:45 06/07/20 08:22 Doxepin HCl (SINEquan) 25 mg QHS PO 06/02/20 21:00 06/06/20 21:37 Gabapentin (Neurontin) 600 mg TID PO 06/02/20 21:00 06/07/20 08:17 Home Med (Med Rec Complete!) ASDIRECTED XX 06/02/20 22:55 06/02/20 22:54 DC Hydroxyzine HCl (Atarax) 25 mg Q4HP PRN PO ANXIETY/AGITATION 06/04/20 14:15 Ibuprofen (Advil) 600 mg TID PRN PO PAIN 06/02/20 23:45 06/07/20 08:20 Levetiracetam (Keppra) 1,000 mg BID PO 06/02/20 21:00 06/07/20 08:17 Loratadine (Claritin) 10 mg DAILY PO 06/03/20 09:00 06/07/20 08:18 Lurasidone HCl (Latuda) 40 mg DAILY@18 PO 06/03/20 18:00 06/04/20 14:06 DC 06/03/20 18:19 Lurasidone HCl (Latuda) 60 mg DAILY@18 PO 06/04/20 18:00 06/06/20 17:29 Magnesium Hydroxide (Milk Of Magnesia) 30 ml DAILYPRN PRN PO CONSTIPATION 06/02/20 21:40 Nicotine (Nicoderm Cq 21mg) 1 patch DAILY TD 06/03/20 09:00 06/07/20 08:17 Olanzapine (ZyPREXA ZYDIS) 5 mg Q4HP PRN PO ANXIETY/AGITATION 06/02/20 21:40 Omeprazole (PriLOSEC) 20 mg DAILY PO 06/03/20 09:00 06/07/20 08:17 Sucralfate (Carafate) 1 gm BID PO 06/02/20 21:00 06/07/20 08:18 Sumatriptan Succinate (Imitrex) 50 mg DAILY PRN PO MIGRAINE 06/02/20 23:45 Trazodone HCl (Desyrel) 50 mg QHSP PRN PO INSOMNIA 06/02/20 21:40 06/06/20 21:37 Triamcinolone Acetonide (Kenalog 0.1% Cream) TO AFFECTED AREA(S) BID TOP 06/03/20 09:00 06/07/20 08:17 Allergies Coded Allergies: Penicillins (Verified Allergy, Unknown, 05/08/20) dextroamphetamine (Verified Allergy, Unknown, 05/08/20) haloperidol (Verified Allergy, Unknown, 05/08/20) olanzapine (Verified Allergy, Unknown, 05/08/20) sulfamethoxazole (Verified Allergy, Unknown, 05/08/20) trimethoprim (Verified Allergy, Unknown, 05/08/20) ziprasidone (Verified Allergy, Unknown, 05/08/20) NACHO CONTRERAS MD Jun 07, 2020 15:16
[2020-06-07] MEDS: hydrOXYzine 25 MG TAB PO PRN (15:31)
[2020-06-07 16:00] VITALS: BP 106/56
[2020-06-07] MEDS: LURASIDONE 20 MG TAB (LATUDA) PO SCH (18:02)
[2020-06-07] MEDS: DOXEPIN 25 MG CAP PO SCH (22:16)
[2020-06-08 06:39] VITALS: BP 126/98
[2020-06-08] MEDS: NICOTINE 21MG/24HR 1 EA TRANSDERMAL TD SCH (08:28)
[2020-06-08] MEDS: CHLORHEXIDINE GLUCONATE 0.12 % 15ML UDC (PERIDEX ORAL RINSE) SSP SCH ×2 (08:28→20:11)
[2020-06-08] MEDS: BUPRENORPHINE/NALOXONE 8-2MG SUBLINGUAL TABLET(SUBOXONE) SL SCH ×2 (08:29→20:11)
[2020-06-08] MEDS: SUCRALFATE 1 GM TAB PO SCH ×2 (08:29→20:11)
[2020-06-08] MEDS: OMEPRAZOLE 20 MG CAP PO SCH (08:29)
[2020-06-08] MEDS: LORATADINE 10 MG TAB PO SCH (08:29)
[2020-06-08] MEDS: GABAPENTIN 300 MG CAP PO SCH ×3 (08:29→20:11)
[2020-06-08] MEDS: levETIRAcetam 250MG TABLET (KEPPRA) PO SCH ×2 (08:29→20:11)
[2020-06-08] MEDS: TRIAMCINOLONE ACET 0.1% CREAM 80 GM TOP SCH ×2 (08:29→20:11)
[2020-06-08] MEDS: CitaloPRAM (CeleXA) 10 MG TABLET PO SCH (08:29)
[2020-06-08] MEDS: IBUPROFEN 600MG TAB PO PRN (08:31)
[2020-06-08] MEDS ORDERED: diphenhydrAMINE 50MG CAP PO ONE (09:30)
[2020-06-08] MEDS: BENZTROPINE 1 MG TAB PO SCH ×2 (09:42→20:11)
[2020-06-08] MEDS: hydrOXYzine 25 MG TAB PO PRN (16:05)
--- NOTE | 2020-06-08 16:23 | MHIPNPDOC ---
[facility] Progress Note Progress Note DATE OF SERVICE: 06/08/20 SUBJECTIVE: "I'm doing better little tired today"I am still hearing voices ,I try to ignore them. Reported that she has Rt shoulder pain and rigidity. OBJECTIVE: She is a 35-year-old female, single, mother of three children, homeless. Came to the emergency room to get medications filled and expressed suicidal thoughts. She has a history of multiple psychiatric hospitalizations. She has a history of auditory hallucinations. She has been diagnosed with schizoaffective disorder, bipolar type, posttraumatic stress disorder, and polysubstance use disorder. Patient reports she is allergic to most of the antipsychotics and mood stabilizers; however, she agreed to take Latuda, and she reports she has no side effects on the medication. She is attending groups. No behavioral problems.Probably some mild dystonic reaction. . MENTAL STATUS EXAMINATION: She is lying in bed, . Reported that she has anxiety. Somewhat disheveled. Insight and judgment are limited. Mood is somewhat depressed and irritable.Thought process goal directed Thought content: Denied any suicidal thoughts; however, continues to have some auditory hallucinations. LABORATORY DATA: Hematology: CBC within normal limits. CMP within normal limits. Toxicology: She was positive for cannabinoids. DIAGNOSES: 1. Schizoaffective disorder, bipolar type. 2. Polysubstance dependence. 3. Posttraumatic stress disorder. PLAN: continue Latuda to 60 mg at night. Continue rest of the medications. Add Cogentin 1mg bid ESTIMATED LENGTH OF STAY: 2 days. TIME SPENT ON THE PATIENT: 25 minutes. Vital Signs Vital Signs Date Time Temp Pulse Resp B/P (MAP) Pulse Ox O2 Delivery O2 Flow Rate FiO2 06/08/20 06:39 97.6 96 18 126/98 (107) 96 Room Air Current Medications Current Medications Medications (Trade) Dose Ordered Sig/Carlos Route PRN Reason Start Time Stop Time Status Last Admin Dose Admin Acetaminophen (Tylenol Tab) 650 mg Q6HP PRN PO HEADACHE or DISCOMFORT 06/02/20 21:40 06/05/20 20:19 Al Hydrox/Mg Hydrox/Simethicone (Mylanta) 30 ml Q4HP PRN PO HEARTBURN/INDIGESTION 06/02/20 21:40 Amitriptyline HCl (Elavil) 50 mg QHS PO 06/02/20 21:00 06/03/20 10:47 DC Benztropine Mesylate (Cogentin) 1 mg BID PO 06/08/20 09:00 06/08/20 09:42 Buprenorphine/ Naloxone (Suboxone 8/2mg) 1 tab BID SL 06/03/20 09:00 06/08/20 08:29 Chlorhexidine Gluconate (Peridex Oral Rinse) 15 ml BID SSP 06/02/20 21:00 06/08/20 08:28 Citalopram Hydrobromide (CeleXA) 10 mg DAILY PO 06/05/20 09:00 06/08/20 08:29 Citalopram Hydrobromide (CeleXA) 20 mg DAILY PO 06/03/20 09:00 06/04/20 14:07 DC 06/04/20 08:36 Clonidine HCl (Catapres) 0.2 mg TID PRN PO ANXIETY 06/02/20 23:45 06/07/20 08:22 Doxepin HCl (SINEquan) 25 mg QHS PO 06/02/20 21:00 06/07/20 22:16 Gabapentin (Neurontin) 600 mg TID PO 06/02/20 21:00 06/08/20 15:35 Home Med (Med Rec Complete!) ASDIRECTED XX 06/02/20 22:55 06/02/20 22:54 DC Hydroxyzine HCl (Atarax) 25 mg Q4HP PRN PO ANXIETY/AGITATION 06/04/20 14:15 06/08/20 16:05 Ibuprofen (Advil) 600 mg TID PRN PO PAIN 06/02/20 23:45 06/08/20 08:31 Levetiracetam (Keppra) 1,000 mg BID PO 06/02/20 21:00 06/08/20 08:29 Loratadine (Claritin) 10 mg DAILY PO 06/03/20 09:00 06/08/20 08:29 Lurasidone HCl (Latuda) 40 mg DAILY@18 PO 06/03/20 18:00 06/04/20 14:06 DC 06/03/20 18:19 Lurasidone HCl (Latuda) 60 mg DAILY@18 PO 06/07/20 17:36 06/07/20 18:02 Lurasidone HCl (Latuda) 60 mg DAILY@18 PO 06/04/20 18:00 06/07/20 17:36 DC 06/06/20 17:29 Magnesium Hydroxide (Milk Of Magnesia) 30 ml DAILYPRN PRN PO CONSTIPATION 06/02/20 21:40 Miscellaneous (Unresolved Clarification Entry) SEE LABEL COMMENTS DAILY XX 06/08/20 09:00 Cancel Nicotine (Nicoderm Cq 21mg) 1 patch DAILY TD 06/03/20 09:00 06/08/20 08:28 Olanzapine (ZyPREXA ZYDIS) 5 mg Q4HP PRN PO ANXIETY/AGITATION 06/02/20 21:40 Omeprazole (PriLOSEC) 20 mg DAILY PO 06/03/20 09:00 06/08/20 08:29 Sucralfate (Carafate) 1 gm BID PO 06/02/20 21:00 06/08/20 08:29 Sumatriptan Succinate (Imitrex) 50 mg DAILY PRN PO MIGRAINE 06/02/20 23:45 Trazodone HCl (Desyrel) 50 mg QHSP PRN PO INSOMNIA 06/02/20 21:40 06/06/20 21:37 Triamcinolone Acetonide (Kenalog 0.1% Cream) TO AFFECTED AREA(S) BID TOP 06/03/20 09:00 06/07/20 22:15 Allergies Coded Allergies: Penicillins (Verified Allergy, Unknown, 05/08/20) dextroamphetamine (Verified Allergy, Unknown, 05/08/20) haloperidol (Verified Allergy, Unknown, 05/08/20) olanzapine (Verified Allergy, Unknown, 05/08/20) sulfamethoxazole (Verified Allergy, Unknown, 05/08/20) trimethoprim (Verified Allergy, Unknown, 05/08/20) ziprasidone (Verified Allergy, Unknown, 05/08/20) NACHO CONTRERAS MD Jun 08, 2020 16:23
[2020-06-08 16:30] VITALS: BP 100/56
[2020-06-08] MEDS: LURASIDONE 20 MG TAB (LATUDA) PO SCH (18:15)
[2020-06-08] MEDS: DOXEPIN 25 MG CAP PO SCH (20:11)
[2020-06-09 06:14] VITALS: BP 121/60
[2020-06-09] MEDS: CHLORHEXIDINE GLUCONATE 0.12 % 15ML UDC (PERIDEX ORAL RINSE) SSP SCH (07:49)
[2020-06-09] MEDS: OMEPRAZOLE 20 MG CAP PO SCH (07:49)
[2020-06-09] MEDS: levETIRAcetam 250MG TABLET (KEPPRA) PO SCH (07:49)
[2020-06-09] MEDS: SUCRALFATE 1 GM TAB PO SCH (07:49)
[2020-06-09] MEDS: BENZTROPINE 1 MG TAB PO SCH (07:50)
[2020-06-09] MEDS: CitaloPRAM (CeleXA) 10 MG TABLET PO SCH (07:50)
[2020-06-09] MEDS: BUPRENORPHINE/NALOXONE 8-2MG SUBLINGUAL TABLET(SUBOXONE) SL SCH (07:50)
[2020-06-09] MEDS: TRIAMCINOLONE ACET 0.1% CREAM 80 GM TOP SCH (07:50)
[2020-06-09] MEDS: NICOTINE 21MG/24HR 1 EA TRANSDERMAL TD SCH (07:50)
[2020-06-09] MEDS: LORATADINE 10 MG TAB PO SCH (07:50)
[2020-06-09] MEDS: GABAPENTIN 300 MG CAP PO SCH (07:50)
[2020-06-09] MEDS ORDERED: BENZ-52 PO (10:07)
[2020-06-09] MEDS ORDERED: LATU20TA PO (10:07)
--- NOTE | 2020-06-09 11:46 | MHDS ---
[facility] DISCHARGE SUMMARY DATE OF ADMISSION: 06/02/2020 DATE OF DISCHARGE: 06/09/2020 DIAGNOSES: 1. Schizoaffective disorder, bipolar type. 2. Polysubstance dependence. 3. Posttraumatic stress disorder. IDENTIFYING DATA: She is a 35-year-old female, single, mother of three children, homeless, who came to the emergency room to get her medication filled, expressed suicidal thoughts and she was admitted to the hospital. She has a long history of substance use disorder. For details of history of present illness (HPI), past psychiatric history, medical history, family history, social history, please refer to the initial evaluation. COURSE IN THE HOSPITAL: Patient initially was depressed, laying in her bed, expressing suicidal thoughts. She was reluctant to take most antipsychotics or mood stabilizers, reporting that she is allergic to them; however, she agreed to take Latuda, which was started with 40 mg once daily and titrated upwards. She was also placed on Cogentin 1 mg twice a day after she reported some stiffness. She was placed on citalopram once daily. She was receiving Suboxone 8/2 mg daily. She also received individual, group and milieu therapy. Patient started attending groups and activities. Her mood improved. There was no behavioral problems in the unit. She denied any side effect of the medications. Denied any suicidal or homicidal ideas. She was stable at the time of discharge. MENTAL STATUS EXAMINATION: Cooperative. Made good eye contact. Mood is euthymic. Affect is appropriate for the mood. Psychomotor activity is normal. Speech: Rate, rhythm, volume are good. Thought process: Linear, goal-directed. Thought content: Denied any suicidal or homicidal ideas. Perception: She continues to have some auditory hallucinations, but she ignores them. She reports the voices have never gone away. Memory: Immediate, remote, recent are good. Her attention is good. Insight and judgment are fair. VITAL SIGNS: Temperature 97.3, pulse 76, respirations 18, blood pressure 121/60, pulse oximetry 96. LABORATORY DATA: CBC within normal limits. CMP within normal limits. TSH was low initially, but subsequently, when retested, it was normal. Toxicology: She was positive for cannabis. IMAGING STUDIES: She had an x-ray done of the right ankle. She had a fracture before she came. It was treated initially outside of current admission and reportedly, she had nondisplaced malleolar fracture. She was given a brace. DISCHARGE MEDICATIONS: - benztropine 1 mg twice a day - lurasidone 60 mg once daily along with food - citalopram 10 mg daily DISPOSITION: Patient will be discharged. She will have an apartment through [employer] ([facility]). Follow up at [facility] outpatient clinic. ADDITIONAL DIAGNOSES:
== END 2020-06-09 11:10 | disposition home or self-care (01) | DRG 750 ==
LOC: M ED 12:58 → M ED INP 12:59 → M PSY 06-03 00:33
PROVIDERS: ADMIT Psychiatry & Neurology Psychiatry; ATTEND Psychiatry & Neurology Psychiatry
DX: F25.0 Schizoaffective disorder, bipolar type (principal); G40.909 Epilepsy, unspecified, not intractable, without status epilepticus; R45.851 Suicidal ideations; Z91.14 Patient's other noncompliance with medication regimen; Z59.0 Homelessness; F43.10 Post-traumatic stress disorder, unspecified; F16.10 Hallucinogen abuse, uncomplicated; F12.10 Cannabis abuse, uncomplicated; F17.210 Nicotine dependence, cigarettes, uncomplicated; K21.9 Gastro-esophageal reflux disease without esophagitis; B19.20 Unspecified viral hepatitis C without hepatic coma; F15.10 Other stimulant abuse, uncomplicated; S82.841D Displaced bimalleolar fracture of right lower leg, subsequent encounter for closed fracture with routine healing; W10.8XXD Fall (on) (from) other stairs and steps, subsequent encounter; Z88.0 Allergy status to penicillin; Z88.2 Allergy status to sulfonamides; Z88.8 Allergy status to other drugs, medicaments and biological substances; Z79.899 Other long term (current) drug therapy; Z81.8 Family history of other mental and behavioral disorders

== ENCOUNTER 2020-06-10 02:13 | Emergency (ER) | payer MEDICAID ==
[~2020-06-10] VITALS: Ht 152.4 cm; Wt 69.3 kg
[~2020-06-10 02:13] MED LIST changes: +BENZ-52 PO; +LATU20TA PO; +SUCR1TAB56 PO
[2020-06-10] MEDS ORDERED: LORazepam 1 MG TAB PO ONE (02:50)
[2020-06-10] MEDS ORDERED: CHLORHEXIDINE GLUCONATE 0.12 % 15ML UDC (PERIDEX ORAL RINSE) SSP ONE (02:50)
[2020-06-10 03:17] VITALS: BP 140/63
[2020-06-10 03:18] LABS: HEMATOCRIT 39.3 % (36.0-47.0); HEMOGLOBIN 12.5 g/dl (12.0-15.5); MEAN CORPUSCULAR HEMOGLOBIN 29.3 pg (27.0-33.0); MEAN CORPUSCULAR HGB CONC 31.8 g/dl (32.0-36.5); MEAN CORPUSCULAR VOLUME 92.3 fl (80.0-96.0); PLATELET COUNT, AUTOMATED 261 10^3/uL (150-450); RED BLOOD COUNT 4.26 10^6/uL (4.00-5.40); WHITE BLOOD COUNT 9.2 10^3/uL (4.0-10.0)
--- NOTE | 2020-06-10 03:29 | REPVR ---
PROCEDURE INFORMATION: Exam: XR Chest Exam date and time: 06/10/2020 2:43 AM Age: 34 years old Clinical indication: Other: Cp; Additional info: Chest pain TECHNIQUE: Imaging protocol: XR of the chest. Views: 1 view. COMPARISON: CR Chest, 1 view 05/07/2020 11:52 AM FINDINGS: Lungs: Unremarkable. No consolidation. Pleural spaces: Unremarkable. No pleural effusion. No pneumothorax. Heart/Mediastinum: Unremarkable. No cardiomegaly. Bones/joints: Unremarkable. IMPRESSION: Negative chest without change from 05/07/2020. Electronically signed by: Jacobo Manuel On 06/10/2020 03:29:35 AM
[2020-06-10 03:34] LABS: HCG, SERUM QUALITATIVE NEGATIVE (NEGATIVE)
[2020-06-10 03:51] LABS: ACETAMINOPHEN LEVEL < 2.0 UG/ML (10.0-30.0); ALBUMIN 4.1 GM/DL (3.2-5.2); ALT/SGPT 49 U/L (12-78); BILIRUBIN,DIRECT < 0.1 MG/DL (0.0-0.2); BILIRUBIN,TOTAL 0.2 MG/DL (0.2-1.0); BLOOD UREA NITROGEN 9 MG/DL (7-18); CALCIUM LEVEL 9.6 MG/DL (8.5-10.1); CARBON DIOXIDE LEVEL 27 MEQ/L (21-32); CHLORIDE LEVEL 105 MEQ/L (98-107); CREATININE FOR GFR 0.64 MG/DL (0.55-1.30); ETHYL ALCOHOL (ETHANOL) < 0.003 % (0.000-0.010); GLOMERULAR FILTRATION RATE > 60.0 (>60); GLUCOSE, FASTING 117 MG/DL (70-100); POTASSIUM SERUM 3.9 MEQ/L (3.5-5.1); SODIUM LEVEL 139 MEQ/L (136-145); TOTAL PROTEIN 7.4 GM/DL (6.4-8.2)
--- NOTE | 2020-06-10 10:19 | ECGEPIP ---
[facility] - ED Test Date: 2020-06-10 Pat Name: MELANY LEE Department: Room: - Gender: Female Podiatric Aide: TIA : 1985 Requested By: KARI Reis Order Number: [id number] Reading MD: Shirley Spears Measurements Intervals [place] Rate: 101 P: 58 SC: 152 QRS: 32 QRSD: 86 T: 32 QT: 364 QTc: 471 Interpretive Statements Sinus tachycardia NSTTW abnormalities increased rate 06/02/20 Electronically Signed on 06-10-2020 10:19:09 EDT by Shirley Spears
== END 2020-06-10 04:12 | disposition home or self-care (01) ==
LOC: M ED 02:13
DX: F41.9 Anxiety disorder, unspecified (principal); R00.0 Tachycardia, unspecified; G43.909 Migraine, unspecified, not intractable, without status migrainosus; K21.9 Gastro-esophageal reflux disease without esophagitis; F32.9 Major depressive disorder, single episode, unspecified; G40.909 Epilepsy, unspecified, not intractable, without status epilepticus; Z86.19 Personal history of other infectious and parasitic diseases; F17.200 Nicotine dependence, unspecified, uncomplicated; F19.10 Other psychoactive substance abuse, uncomplicated; Z79.899 Other long term (current) drug therapy; Z88.0 Allergy status to penicillin; Z88.8 Allergy status to other drugs, medicaments and biological substances

== ENCOUNTER 2020-06-16 10:02 | Emergency (ER) | payer MEDICAID ==
[~2020-06-16] VITALS: Ht 152.4 cm; Wt 72.7 kg
[2020-06-16 10:02] VITALS: BP 142/71
== END 2020-06-16 11:04 | disposition left against medical advice (07) ==
LOC: M ED 10:02
DX: Z53.21 Procedure and treatment not carried out due to patient leaving prior to being seen by health care provider (principal)

== ENCOUNTER 2020-06-25 13:28 | Emergency (ER) | payer MEDICAID, OTHER ==
[~2020-06-25] VITALS: Ht 152.4 cm; Wt 72.1 kg
[2020-06-25 13:29] VITALS: BP 134/89
== END 2020-06-25 17:06 | disposition home or self-care (01) ==
LOC: M ED 13:28
DX: F22 Delusional disorders (principal); F45.9 Somatoform disorder, unspecified; F20.9 Schizophrenia, unspecified; F19.10 Other psychoactive substance abuse, uncomplicated; Z86.19 Personal history of other infectious and parasitic diseases; F17.200 Nicotine dependence, unspecified, uncomplicated; F11.10 Opioid abuse, uncomplicated; Z79.899 Other long term (current) drug therapy; Z88.0 Allergy status to penicillin; Z88.8 Allergy status to other drugs, medicaments and biological substances; Z88.2 Allergy status to sulfonamides

== ENCOUNTER 2020-06-25 21:01 | Emergency (ER) | payer OTHER ==
[~2020-06-25] VITALS: Ht 152.4 cm; Wt 70.4 kg
[2020-06-25 21:02] VITALS: BP 128/97
== END 2020-06-26 03:01 | disposition home or self-care (01) ==
LOC: M ED 21:01
DX: G50.1 Atypical facial pain (principal); H57.10 Ocular pain, unspecified eye; M79.673 Pain in unspecified foot; R07.0 Pain in throat; Z77.098 Contact with and (suspected) exposure to other hazardous, chiefly nonmedicinal, chemicals; F19.10 Other psychoactive substance abuse, uncomplicated; F25.9 Schizoaffective disorder, unspecified; F41.9 Anxiety disorder, unspecified; F60.0 Paranoid personality disorder; R56.9 Unspecified convulsions; E03.9 Hypothyroidism, unspecified; F17.200 Nicotine dependence, unspecified, uncomplicated; Z79.899 Other long term (current) drug therapy; Z88.0 Allergy status to penicillin; Z88.2 Allergy status to sulfonamides; Z88.8 Allergy status to other drugs, medicaments and biological substances

== ENCOUNTER 2020-06-27 03:22 | Emergency (ER) | payer OTHER ==
[~2020-06-27] VITALS: Ht 160 cm; Wt 69.3 kg
[2020-06-27 03:23] VITALS: BP 121/52
== END 2020-06-27 04:50 | disposition left against medical advice (07) ==
LOC: M ED 03:22
DX: Z53.21 Procedure and treatment not carried out due to patient leaving prior to being seen by health care provider (principal)

== ENCOUNTER 2020-06-29 22:22 | Emergency (ER) | payer OTHER ==
[~2020-06-29] VITALS: Ht 152.4 cm; Wt 71.5 kg
[2020-06-29 22:23] VITALS: BP 135/74
== END 2020-06-30 04:10 | disposition left against medical advice (07) ==
LOC: M ED 22:22
DX: Z53.21 Procedure and treatment not carried out due to patient leaving prior to being seen by health care provider (principal)

== ENCOUNTER 2020-07-25 03:15 | Emergency (ER) | payer OTHER ==
[~2020-07-25] VITALS: Ht 152.4 cm; Wt 72.5 kg
[~2020-07-25 03:15] MED LIST changes: -BANO25CA PO; +DIPH-319 PO; +GABA-283 PO; -GABA-845 PO
[2020-07-25 03:44] VITALS: BP 143/85
[2020-07-25] MEDS ORDERED: FLON1SPR NARES (04:11)
[2020-07-25] MEDS ORDERED: CEPH500C PO (04:11)
[2020-07-25] MEDS ORDERED: CEPHALEXIN 500 MG CAP PO ONE (04:15)
== END 2020-07-25 04:21 | disposition home or self-care (01) ==
LOC: M ED 03:15
DX: J01.90 Acute sinusitis, unspecified (principal); F19.10 Other psychoactive substance abuse, uncomplicated; F17.200 Nicotine dependence, unspecified, uncomplicated; Z79.899 Other long term (current) drug therapy; Z88.0 Allergy status to penicillin; Z88.5 Allergy status to narcotic agent; Z88.8 Allergy status to other drugs, medicaments and biological substances

== ENCOUNTER 2020-07-25 14:39 | Emergency (ER) | payer OTHER ==
[~2020-07-25 14:39] MED LIST changes: +CEPH500C PO; +FLON1SPR NARES
[2020-07-25] MEDS ORDERED: GI COCKTAIL 50ML BTL(HYOSCYAMINE/MAALOX/LIDOCAINE VISCOUS)(1:3:1) PO ONE (15:30)
--- NOTE | 2020-07-26 09:28 | ECGEPIP ---
[facility] - ED Test Date: 2020-07-25 Pat Name: MELANY LEE Department: Room: - Gender: Female Vp Product Marketing: MARICHUY : 1985 Requested By: Shirley Spears Order Number: [id number] Reading MD: Shirley Spears Measurements Intervals [place] Rate: 105 P: 65 MI: 168 QRS: 49 QRSD: 86 T: 37 QT: 356 QTc: 470 Interpretive Statements Sinus tachycardia Possible Left atrial enlargement Nonspecific ST abnormality similar 06/10/20 Electronically Signed on 07-26-2020 9:28:18 EDT by Shirley Spears
== END 2020-07-25 15:58 | disposition left against medical advice (07) ==
LOC: EDBD 14:39 → M ED 14:39
DX: F19.10 Other psychoactive substance abuse, uncomplicated (principal); R00.0 Tachycardia, unspecified; Z53.9 Procedure and treatment not carried out, unspecified reason; Z86.19 Personal history of other infectious and parasitic diseases; Z79.899 Other long term (current) drug therapy; Z88.0 Allergy status to penicillin; Z88.1 Allergy status to other antibiotic agents; Z88.8 Allergy status to other drugs, medicaments and biological substances

== ENCOUNTER 2020-07-28 06:12 | Inpatient (IN) | payer MEDICAID, OTHER ==
[~2020-07-28] VITALS: Ht 172.7 cm; Wt 68.6 kg
[2020-07-28] MEDS ORDERED: LORazepam 2 MG/ML VIAL IM STA ×3 (07:20→16:00)
[2020-07-28] MEDS ORDERED: diphenhydrAMINE 50MG/ML VIAL (J1200) IM STA ×2 (07:43→16:00)
[2020-07-28] MEDS ORDERED: LURASIDONE HCL 40 MG TAB (LATUDA) PO STA (07:47)
[2020-07-28 09:15] LABS: HEMATOCRIT 39.6 % (36.0-47.0); HEMOGLOBIN 12.6 g/dl (12.0-15.5); MEAN CORPUSCULAR HEMOGLOBIN 28.8 pg (27.0-33.0); MEAN CORPUSCULAR HGB CONC 31.8 g/dl (32.0-36.5); MEAN CORPUSCULAR VOLUME 90.6 fl (80.0-96.0); PLATELET COUNT, AUTOMATED 290 10^3/uL (150-450); RED BLOOD COUNT 4.37 10^6/uL (4.00-5.40); WHITE BLOOD COUNT 9.9 10^3/uL (4.0-10.0)
[2020-07-28 09:51] LABS: HCG, SERUM QUALITATIVE NEGATIVE (NEGATIVE)
[2020-07-28 09:55] LABS: ACETAMINOPHEN LEVEL < 2.0 UG/ML (10.0-30.0); ALBUMIN 4.3 GM/DL (3.2-5.2); ALT/SGPT 19 U/L (12-78); BILIRUBIN,DIRECT < 0.1 MG/DL (0.0-0.2); BILIRUBIN,TOTAL 0.4 MG/DL (0.2-1.0); BLOOD UREA NITROGEN 23 MG/DL (7-18); CARBON DIOXIDE LEVEL 25 MEQ/L (21-32); CHLORIDE LEVEL 105 MEQ/L (98-107); CPK CREATINE PHOSPHOKINASE 324 U/L (26-192); CREATININE FOR GFR 0.81 MG/DL (0.55-1.30); ETHYL ALCOHOL (ETHANOL) 0.004 % (0.000-0.010); GLOMERULAR FILTRATION RATE > 60.0 (>60); GLUCOSE, FASTING 103 MG/DL (70-100); POTASSIUM SERUM 4.4 MEQ/L (3.5-5.1); SALICYLATE LEVEL 3.2 MG/DL (5.0-30.0); SODIUM LEVEL 139 MEQ/L (136-145); THYROID STIMULATING HORMONE 0.586 uIU/ML (0.358-3.740); TOTAL PROTEIN 7.5 GM/DL (6.4-8.2)
[2020-07-28 10:09] LABS: AMPHETAMINES LEVEL URINE NEGATIVE (NEGATIVE); BARBITURATES URINE NEGATIVE (NEGATIVE); BENZODIAZEPINES URINE NEGATIVE (NEGATIVE); CANNABINOIDS URINE NEGATIVE (NEGATIVE); COCAINE METABOLITE URINE NEGATIVE (NEGATIVE); METHADONE URINE NEGATIVE (NEGATIVE); OPIATES URINE NEGATIVE (NEGATIVE); PHENCYCLIDINE URINE NEGATIVE (NEGATIVE)
[2020-07-28 14:15] LABS: RSV AMPLIFICATION NEGATIVE (NEGATIVE)
[2020-07-28] MEDS ORDERED: OLANZapine INTRAMUSCULAR 10MG VIAL IM ONE (17:00)
--- NOTE | 2020-07-28 20:52 | ECGEPIP ---
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
[2020-07-28] MEDS ORDERED: ACETAMINOPHEN TAB 650MG DOSE (2X325MG) PO PRN (21:50)
[2020-07-28] MEDS ORDERED: MAALOX 30 ML SUSP *UDC PO PRN (21:50)
[2020-07-28] MEDS ORDERED: MOM 30ML SUSPENSION UDC PO PRN (21:50)
[2020-07-29] MEDS: NICOTINE 21MG/24HR 1 EA TRANSDERMAL TD SCH (09:00)
[2020-07-29] MEDS: OLANZapine ORAL DISINTEGRATING TAB 5MG PO PRN (11:26)
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
[2020-07-29] MEDS ORDERED: SUMAtriptan SUCCINATE 25 MG TAB PO PRN (15:20)
[2020-07-29] MEDS ORDERED: OMEPRAZOLE 20 MG CAP PO ONE (15:20)
[2020-07-29 16:14] VITALS: BP 103/60
--- NOTE | 2020-07-29 18:09 | HPEPDOC ---
General Date of Admission Jul 28, 2020 at 21:47 Date of Service: Jul 29, 2020 Chief Complaint The patient is a 35-year-old female admitted with a reason for visit of Unspecified Psychotic Do. Exam Limitations: No limitations History of Present Illness Patient is 35 years old female with past history of polysubstance abuse, psychoaffective disorder, bipolar type, hepatitis C presented to the hospital with acute psychosis. Patient arrived with psychosomatic complaints, as well as other delusional & disorganized thoughts. She cycled rapidly among belief that her skin was burning, bugs crawling all over her, sores/holes in her mouth & belief that her family had been killed. Patient was not compliant with her psych meds. During my interview she stated that 2 months ago she had a right ankle fracture, but she did not follow with orthopedic surgeon because she is homeless. She stated that she feels pain when she walk. Patient denied fever, chills, nausea, vomiting diarrhea or dysuria Home Medications Unable to Obtain Active Prescriptions or Reported Meds Allergies Coded Allergies: Penicillins (Verified Allergy, Unknown, 06/29/20) dextroamphetamine (Verified Allergy, Unknown, 06/29/20) haloperidol (Verified Allergy, Unknown, 06/29/20) olanzapine (Verified Allergy, Unknown, 06/29/20) sulfamethoxazole (Verified Allergy, Unknown, 06/29/20) trimethoprim (Verified Allergy, Unknown, 06/29/20) ziprasidone (Verified Allergy, Unknown, 06/29/20) Past Medical History Medical History Hepatitis C S/p ankle and leg fracture Depression Anxiety Polysubstance use IV drug use Migraines, seizure history Family History Mother has lupus and arthritis Father has cirrhosis, hypertension and gout Social History * Smoker: current smoker Alcohol: Denies Drugs: heroin, marijuana, IV drug use A-FIB/CHADSVASC A-FIB History Current/History of A-Fib/PAF?: No Current PO Anticoag Therapy: No Review of Systems Constitutional: Denies: Chills Eyes: Denies: Pain Skin: Denies: Rash Pulmonary: Denies: Dyspnea Cardiovascular: Denies: Chest Pain Gastrointestinal: Denies: Nausea, Vomiting Genitourinary: Denies: Dysuria Hematologic: Denies: Bruising Endocrine: Denies: Polydipsia Musculoskeletal: Reports: Leg Pain (right ankle pain) Neurological: Denies: Weakness Psych: Reports: Depression Physical Examination General Exam: Positive: Alert, Cooperative Eye Exam: Positive: PERRLA ENT Exam: Positive: Atraumatic Neck Exam: Positive: Supple; Negative: JVD Chest Exam: Negative: Clear to auscultation Heart Exam: Positive: Rate Normal Telemetry: Positive: No significant arrhythmia Abdomen Exam: Positive: Normal bowel sounds Extremity Exam: Negative: Clubbing Neuro Exam: Positive: Cranial Nerves 3-12 NL Psych Exam: Positive: Oriented x 3 Vital Signs Vital Signs Date Time Temp Pulse Resp B/P (MAP) Pulse Ox O2 Delivery O2 Flow Rate FiO2 07/29/20 16:14 98.4 73 18 103/60 (74) 07/29/20 08:24 Room Air 07/29/20 01:17 99 Assessment/Plan Patient is 35 years old female with past history of polysubstance abuse, psychoaffective disorder, bipolar type, hepatitis C presented to the hospital with acute psychosis. Patient arrived with psychosomatic complaints, as well as other delusional & disorganized thoughts. She cycled rapidly among belief that her skin was burning, bugs crawling all over her, sores/holes in her mouth & belief that her family had been killed. Patient was not compliant with her psych meds. During my interview she stated that 2 months ago she had a right ankle fracture, but she did not follow with orthopedic surgeon because she is home less. She stated that she feels pain when she walk. Patient denied fever, chills, nausea, vomiting diarrhea or dysuria Problems (1) Psychosis Status: Acute Problem Text: Deferred treatment to psych team (2) History of hepatitis C Status: Chronic Problem Text: LFT unremarkable Follow-up with ID specialist in the outpatient settings (3) Ankle pain Status: Chronic Problem Text: We'll proceed with a right ankle x-ray Continue Tylenol for pain management Plan / VTE VTE Prophylaxis Ordered?: No VTE Exclusion Mechanical Proph: Low Risk for VTE DANELLE ARIZA DO Jul 29, 2020 18:09
--- NOTE | 2020-07-29 18:49 | REP ---
INDICATION: ankle fracture COMPARISON: 06/04/2020 TECHNIQUE: AP, lateral, bilateral oblique views. FINDINGS: Known by malleolar fractures are again identified. The distal fibular fracture demonstrates callus formation and periosteal reaction suggesting healing. The medial malleolar fracture is identified with limited callus formation and no significant periosteal reaction suggesting possible delayed healing. The ankle mortise is grossly intact. IMPRESSION: Known fractures of the medial and lateral malleolus. <Electronically signed by Broderick Mondragon > 07/29/20 0332
[2020-07-29] MEDS: BENZTROPINE 1 MG TAB PO SCH (20:23)
[2020-07-29] MEDS: levETIRAcetam 250MG TABLET (KEPPRA) PO SCH (20:23)
[2020-07-29] MEDS: GABAPENTIN 300 MG CAP PO SCH (20:23)
[2020-07-29] MEDS: BUPRENORPHINE/NALOXONE 8-2MG SUBLINGUAL TABLET(SUBOXONE) SL SCH (20:23)
[2020-07-30 06:20] VITALS: BP 107/59
[2020-07-30] MEDS: LURASIDONE 20 MG TAB (LATUDA) PO SCH (08:46)
[2020-07-30] MEDS: GABAPENTIN 300 MG CAP PO SCH ×2 (09:31→20:12)
[2020-07-30] MEDS: levETIRAcetam 250MG TABLET (KEPPRA) PO SCH ×2 (09:31→20:12)
[2020-07-30] MEDS: BENZTROPINE 1 MG TAB PO SCH ×2 (09:31→20:12)
[2020-07-30] MEDS: NICOTINE 21MG/24HR 1 EA TRANSDERMAL TD SCH (09:32)
[2020-07-30] MEDS: BUPRENORPHINE/NALOXONE 8-2MG SUBLINGUAL TABLET(SUBOXONE) SL SCH ×2 (09:34→20:12)
[2020-07-30] MEDS: OLANZapine ORAL DISINTEGRATING TAB 5MG PO PRN ×2 (12:28→19:53)
[2020-07-30] MEDS ORDERED: hydrOXYzine 50 MG TAB PO PRN (12:30)
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
[2020-07-30] MEDS ORDERED: GABAPENTIN 300 MG CAP PO ONE (17:30)
[2020-07-30 21:00] VITALS: BP 98/66
[2020-07-31 06:44] VITALS: BP 106/59
[2020-07-31] MEDS: LURASIDONE 20 MG TAB (LATUDA) PO SCH (08:05)
[2020-07-31] MEDS: levETIRAcetam 250MG TABLET (KEPPRA) PO SCH ×2 (08:06→20:26)
[2020-07-31] MEDS: BENZTROPINE 1 MG TAB PO SCH ×2 (08:06→20:25)
[2020-07-31] MEDS: GABAPENTIN 300 MG CAP PO SCH ×3 (08:06→20:26)
[2020-07-31] MEDS: NICOTINE 21MG/24HR 1 EA TRANSDERMAL TD SCH (08:07)
[2020-07-31] MEDS: BUPRENORPHINE/NALOXONE 8-2MG SUBLINGUAL TABLET(SUBOXONE) SL SCH ×2 (09:42→20:26)
--- NOTE | 2020-07-31 14:26 | REP ---
INDICATION: left foot fracture COMPARISON: None. TECHNIQUE: AP, lateral, bilateral oblique views left foot. FINDINGS: The osseous structures and joint spaces are intact and normal. There is no evidence for acute fracture or dislocation. Surrounding soft tissues are unremarkable. No subcutaneous emphysema or radiodense foreign body. IMPRESSION: . No acute fracture or dislocation. <Electronically signed by Broderick Mondragon > 07/31/20 0303
[2020-07-31] MEDS: OLANZapine ORAL DISINTEGRATING TAB 5MG PO PRN (17:14)
[2020-07-31 17:37] VITALS: BP 105/54
--- NOTE | 2020-07-31 20:53 | MHIPNPDOC ---
[facility] Progress Note Progress Note DATE OF SERVICE: 07/31/20 Patient is a 35 -year-old single, disabled, , female, who reports that the reason for coming to the hospital was that her children, ages 15, 14 and 10 years old were missing. She states that she wanted to ask the hospital to call the reel cart operator because she doesn't have a phone and wasn't able to call them. Patient presents with multiple lacerations and abrasions to her arms and hands. States that she needs to be be restarted on her medications because people are stealing her medications. Patient is well-known to this facility has a recent admission and discharge in May 2020. On that occasion she had reported auditory hallucinations, she has suicidal ideations and reportedly was coming to get her medications filled because someone was stealing her medications. Patient has had multiple psychiatric hospitalizations more than 20. Patient has a history of polysubstance dependence and a diagnosis of schizoaffective disorder. She is also an IV drug user PER ED REPORT: Patient arrived with psychosomatic complaints, as well as other delusional & disorganized thoughts. She cycled rapidly among belief that her skin was burning, bugs crawling all over her, sores/holes in her mouth & belief that her family had been killed. Patient was not physically aggressive, however highly verbally agitated, with excessive PMA. She refused/was unable to listen to reason & provided no rational thoughts. Patient often presents with similar psychosomatic complaints, usually associated with methamphetamine use. Today her sx & condition are much worse & she appears unsafe to adequately care for herself in the community. Patient could frequently be heard screaming that she was not using drugs, and her urine toxicology obtained in ED today was in fact, negative. VITAL SIGNS: See below. NEW TEST RESULTS: . CURRENT MEDICATIONS: See below. MENTAL STATUS EXAMINATION: Patient is a 35 -year-old single, disabled, , female, who reports that the reason for coming to the hospital was that her children, ages 15, 14 and 10 years old were missing "the voices are telling me this." Speech: Is fluid, conversant, normal rate, tone and volume Language skills are intact Thought processes including: linear and goal oriented Thought content: denies depression and anxiety. Denies suicidal/homicidal ideation, planning or intent. Abstract reasoning, and computation: fair Description of associations: denies, none observed Description of abnormal or psychotic thoughts: she reports auditory hallucinations that have been telling her that her children have been raped and killed. She has paranoid delusions. Judgment: fair Insight: fair Orientation: alert and oriented to person, place, time and situation Recent and remote memory: intact Attention span and concentration: good Language: expansive Fund of knowledge: average Mood: Anxious Mood Affect: Anxious DIAGNOSES: Schizoaffective disorder, bipolar type polysubstance use - nicotine, methamphetamine ASSESSMENT: She says she feels better but she reports feeling anxious because she has delusions and hallucinations about her children being raped and killed. She says she has nightmares about the same theme. She is paranoid about her family members. MANAGEMENT PLAN: Continue with the same treatment plan TIME SPENT: 20 minutes Vital Signs Vital Signs Date Time Temp Pulse Resp B/P (MAP) Pulse Ox O2 Delivery O2 Flow Rate FiO2 07/31/20 17:37 97.2 84 14 105/54 (71) 07/31/20 11:30 Room Air 07/31/20 06:44 98 Current Medications Current Medications Medications (Trade) Dose Ordered Sig/Carlos Route PRN Reason Start Time Stop Time Status Last Admin Dose Admin Acetaminophen (Tylenol Tab) 650 mg Q6HP PRN PO HEADACHE or DISCOMFORT 07/28/20 21:50 07/31/20 08:07 Al Hydrox/Mg Hydrox/Simethicone (Mylanta) 30 ml Q4HP PRN PO HEARTBURN/INDIGESTION 07/28/20 21:50 Benztropine Mesylate (Cogentin) 1 mg BID PO 07/29/20 21:00 07/31/20 08:06 Buprenorphine/ Naloxone (Suboxone 8/2mg) 1 tab BID SL 07/29/20 21:00 07/31/20 09:42 Diphenhydramine HCl (Benadryl) 50 mg STAT STAT IM 07/28/20 07:43 07/28/20 07:51 DC 07/28/20 07:52 Diphenhydramine HCl (Benadryl) 50 mg STAT STAT IM 07/28/20 16:00 07/28/20 16:02 DC 07/28/20 16:35 Gabapentin (Neurontin) 300 mg BID PO 07/29/20 21:00 07/30/20 17:37 DC 07/30/20 09:31 Gabapentin (Neurontin) 600 mg TID PO 07/30/20 21:00 07/31/20 16:04 Home Med (Med Rec Complete!) ASDIRECTED XX 07/28/20 15:05 07/28/20 15:03 DC Hydroxyzine HCl (Atarax) 100 mg Q6HP PRN PO ITCHING 07/30/20 12:30 Levetiracetam (Keppra) 1,000 mg BID PO 07/29/20 21:00 07/31/20 08:06 Lorazepam (Ativan) 2 mg STAT STAT IM 07/28/20 07:20 07/28/20 07:51 DC 07/28/20 07:52 Lorazepam (Ativan) 2 mg STAT STAT IM 07/28/20 09:12 07/28/20 09:13 Cancel Lorazepam (Ativan) 2 mg STAT STAT IM 07/28/20 16:00 07/28/20 16:02 DC 07/28/20 16:35 Lurasidone HCl (Latuda) 20 mg DAILY@08 PO 07/30/20 08:00 07/31/20 08:05 Lurasidone HCl (Latuda) 60 mg STAT STAT PO 07/28/20 07:47 07/28/20 07:51 DC 07/28/20 10:02 Magnesium Hydroxide (Milk Of Magnesia) 30 ml DAILYPRN PRN PO CONSTIPATION 07/28/20 21:50 Nicotine (Nicoderm Cq 21mg) 1 patch DAILY TD 07/29/20 09:00 07/31/20 08:07 Olanzapine (ZyPREXA ZYDIS) 10 mg Q4HP PRN PO ANXIETY/AGITATION 07/28/20 21:50 07/31/20 17:14 Sumatriptan Succinate (Imitrex) 50 mg DAILYPRN PRN PO MIGRAINE 07/29/20 15:20 07/30/20 20:12 Trazodone HCl (Desyrel) 50 mg QHSP PRN PO INSOMNIA 07/28/20 21:50 Allergies Coded Allergies: Penicillins (Verified Allergy, Unknown, 06/29/20) dextroamphetamine (Verified Allergy, Unknown, 06/29/20) haloperidol (Verified Allergy, Unknown, 06/29/20) olanzapine (Verified Allergy, Unknown, 06/29/20) sulfamethoxazole (Verified Allergy, Unknown, 06/29/20) trimethoprim (Verified Allergy, Unknown, 06/29/20) ziprasidone (Verified Allergy, Unknown, 06/29/20) DAVID CHILDRESS MD Jul 31, 2020 20:12
[2020-07-31] MEDS: traZODone 50 MG TAB PO PRN (21:02)
[2020-08-01 06:00] VITALS: BP 106/56
[2020-08-01] MEDS: OLANZapine ORAL DISINTEGRATING TAB 5MG PO PRN (07:23)
[2020-08-01] MEDS ORDERED: diphenhydrAMINE 50MG CAP PO ONE (07:35)
[2020-08-01] MEDS: LURASIDONE 20 MG TAB (LATUDA) PO SCH (07:42)
[2020-08-01] MEDS: GABAPENTIN 300 MG CAP PO SCH ×3 (09:11→21:00)
[2020-08-01] MEDS: BENZTROPINE 1 MG TAB PO SCH ×2 (09:11→21:00)
[2020-08-01] MEDS: levETIRAcetam 250MG TABLET (KEPPRA) PO SCH ×2 (09:11→21:00)
[2020-08-01] MEDS: NICOTINE 21MG/24HR 1 EA TRANSDERMAL TD SCH (09:11)
[2020-08-01] MEDS: BUPRENORPHINE/NALOXONE 8-2MG SUBLINGUAL TABLET(SUBOXONE) SL SCH ×2 (11:32→21:00)
--- NOTE | 2020-08-01 14:22 | MHIPNPDOC ---
[facility] Progress Note Progress Note DATE OF SERVICE: 08/01/20 Patient is a 35 -year-old single, disabled, , female, who reports that the reason for coming to the hospital was that her children, ages 15, 14 and 10 years old were missing. She states that she wanted to ask the hospital to call the service vehicle operator because she doesn't have a phone and wasn't able to call them. Patient presents with multiple lacerations and abrasions to her arms and hands. States that she needs to be be restarted on her medications because people are stealing her medications. Patient is well-known to this facility has a recent admission and discharge in May 2020. On that occasion she had reported auditory hallucinations, she has suicidal ideations and reportedly was coming to get her medications filled because someone was stealing her medications. Patient has had multiple psychiatric hospitalizations more than 20. Patient has a history of polysubstance dependence and a diagnosis of schizoaffective disorder. She is also an IV drug user PER ED REPORT: Patient arrived with psychosomatic complaints, as well as other delusional & disorganized thoughts. She cycled rapidly among belief that her skin was burning, bugs crawling all over her, sores/holes in her mouth & belief that her family had been killed. Patient was not physically aggressive, however highly verbally agitated, with excessive PMA. She refused/was unable to listen to reason & provided no rational thoughts. Patient often presents with similar psychosomatic complaints, usually associated with methamphetamine use. Today her sx & condition are much worse & she appears unsafe to adequately care for herself in the community. Patient could frequently be heard screaming that she was not using drugs, and her urine toxicology obtained in ED today was in fact, negative. VITAL SIGNS: See below. NEW TEST RESULTS: . CURRENT MEDICATIONS: See below. MENTAL STATUS EXAMINATION: Patient is a 35 -year-old single, disabled, , female, who reports that the reason for coming to the hospital was that her children, ages 15, 14 and 10 years old were missing "the voices are telling me this." Speech: Is fluid, conversant, normal rate, tone and volume Language skills are intact Thought processes including: linear and goal oriented Thought content: denies depression and anxiety. Denies suicidal/homicidal ideation, planning or intent. Abstract reasoning, and computation: fair Description of associations: denies, none observed Description of abnormal or psychotic thoughts: she reports auditory hallucinations that have been telling her that her children have been raped and killed ( they are less frequent and less intense). She denies paranoid thoughts today. Judgment: fair Insight: fair Orientation: alert and oriented to person, place, time and situation Recent and remote memory: intact Attention span and concentration: good Language: adequate Fund of knowledge: average Mood: mildly irritable Mood Affect: a little labile DIAGNOSES: Schizoaffective disorder, bipolar type polysubstance use - nicotine, methamphetamine ASSESSMENT: She is better today. She says she wants her Gabapentin increased to 800 mgs PO TID but I told her I won't be doing that. She was OK with it. MANAGEMENT PLAN: Continue with the same treatment plan TIME SPENT: 20 minutes Vital Signs Vital Signs Date Time Temp Pulse Resp B/P (MAP) Pulse Ox O2 Delivery O2 Flow Rate FiO2 08/01/20 06:00 98.0 74 16 106/56 (73) 95 Room Air Current Medications Current Medications Medications (Trade) Dose Ordered Sig/Carlos Route PRN Reason Start Time Stop Time Status Last Admin Dose Admin Acetaminophen (Tylenol Tab) 650 mg Q6HP PRN PO HEADACHE or DISCOMFORT 07/28/20 21:50 07/31/20 08:07 Al Hydrox/Mg Hydrox/Simethicone (Mylanta) 30 ml Q4HP PRN PO HEARTBURN/INDIGESTION 07/28/20 21:50 Benztropine Mesylate (Cogentin) 1 mg BID PO 07/29/20 21:00 08/01/20 09:11 Buprenorphine/ Naloxone (Suboxone 8/2mg) 1 tab BID SL 07/29/20 21:00 08/01/20 11:32 Diphenhydramine HCl (Benadryl) 50 mg STAT STAT IM 07/28/20 07:43 07/28/20 07:51 DC 07/28/20 07:52 Diphenhydramine HCl (Benadryl) 50 mg STAT STAT IM 07/28/20 16:00 07/28/20 16:02 DC 07/28/20 16:35 Gabapentin (Neurontin) 300 mg BID PO 07/29/20 21:00 07/30/20 17:37 DC 07/30/20 09:31 Gabapentin (Neurontin) 600 mg TID PO 07/30/20 21:00 08/01/20 09:11 Home Med (Med Rec Complete!) ASDIRECTED XX 07/28/20 15:05 07/28/20 15:03 DC Hydroxyzine HCl (Atarax) 100 mg Q6HP PRN PO ITCHING 07/30/20 12:30 Levetiracetam (Keppra) 1,000 mg BID PO 07/29/20 21:00 08/01/20 09:11 Lorazepam (Ativan) 2 mg STAT STAT IM 07/28/20 07:20 07/28/20 07:51 DC 07/28/20 07:52 Lorazepam (Ativan) 2 mg STAT STAT IM 07/28/20 09:12 07/28/20 09:13 Cancel Lorazepam (Ativan) 2 mg STAT STAT IM 07/28/20 16:00 07/28/20 16:02 DC 07/28/20 16:35 Lurasidone HCl (Latuda) 20 mg DAILY@08 PO 07/30/20 08:00 08/01/20 07:42 Lurasidone HCl (Latuda) 60 mg STAT STAT PO 07/28/20 07:47 07/28/20 07:51 DC 07/28/20 10:02 Magnesium Hydroxide (Milk Of Magnesia) 30 ml DAILYPRN PRN PO CONSTIPATION 07/28/20 21:50 Nicotine (Nicoderm Cq 21mg) 1 patch DAILY TD 07/29/20 09:00 08/01/20 09:11 Olanzapine (ZyPREXA ZYDIS) 10 mg Q4HP PRN PO ANXIETY/AGITATION 07/28/20 21:50 08/01/20 07:23 Sumatriptan Succinate (Imitrex) 50 mg DAILYPRN PRN PO MIGRAINE 07/29/20 15:20 07/30/20 20:12 Trazodone HCl (Desyrel) 50 mg QHSP PRN PO INSOMNIA 07/28/20 21:50 07/31/20 21:02 Allergies Coded Allergies: Penicillins (Verified Allergy, Unknown, 06/29/20) dextroamphetamine (Verified Allergy, Unknown, 06/29/20) haloperidol (Verified Allergy, Unknown, 06/29/20) olanzapine (Verified Allergy, Unknown, 06/29/20) sulfamethoxazole (Verified Allergy, Unknown, 06/29/20) trimethoprim (Verified Allergy, Unknown, 06/29/20) ziprasidone (Verified Allergy, Unknown, 06/29/20) DAVID CHILDRESS MD Aug 01, 2020 14:22
[2020-08-01 18:05] VITALS: BP 111/63
[2020-08-02] MEDS: OLANZapine ORAL DISINTEGRATING TAB 5MG PO PRN (01:07)
[2020-08-02] MEDS: traZODone 50 MG TAB PO PRN (01:07)
[2020-08-02 06:24] VITALS: BP 110/69
[2020-08-02] MEDS: BENZTROPINE 1 MG TAB PO SCH (08:07)
[2020-08-02] MEDS: levETIRAcetam 250MG TABLET (KEPPRA) PO SCH (08:07)
[2020-08-02] MEDS: GABAPENTIN 300 MG CAP PO SCH (08:07)
[2020-08-02] MEDS: LURASIDONE 20 MG TAB (LATUDA) PO SCH (08:07)
[2020-08-02] MEDS: NICOTINE 21MG/24HR 1 EA TRANSDERMAL TD SCH (08:08)
[2020-08-02] MEDS: BUPRENORPHINE/NALOXONE 8-2MG SUBLINGUAL TABLET(SUBOXONE) SL SCH (09:00)
[2020-08-02] MEDS ORDERED: NICO21PAT TD (12:01)
[2020-08-02] MEDS ORDERED: SUMA25TA3 PO (12:01)
[2020-08-02] MEDS ORDERED: TRAZ-252 PO (12:01)
[2020-08-02] MEDS ORDERED: GABA-282 PO (12:01)
[2020-08-02] MEDS ORDERED: LEVE10003 PO (12:01)
[2020-08-02] MEDS ORDERED: BENZ-52 PO (12:01)
[2020-08-02] MEDS ORDERED: LATU20TA PO (12:01)
--- NOTE | 2020-08-02 14:18 | MHDSPDOC ---
[facility] Discharge Summary Discharge Summary DATE OF ADMISSION: Jul 28, 2020 at 21:47 DATE OF DISCHARGE: Aug 02, 2020 at 12:20 DISCHARGE DIAGNOSES: Schizoaffective disorder, bipolar type polysubstance use - nicotine, methamphetamine REASON FOR ADMISSION: Patient is a 35 -year-old single, disabled, , female, who reports that the reason for coming to the hospital was that her children, ages 15, 14 and 10 years old were missing. She states that she wanted to ask the hospital to call the case packer and sealer because she doesn't have a phone and wasn't able to call them. Patient presents with multiple lacerations and abrasions to her arms and hands. States that she needs to be be restarted on her medications because people are stealing her medications. Patient is well-known to this facility has a recent admission and discharge in May 2020. On that occasion she had reported auditory hallucinations, she has suicidal ideations and reportedly was coming to get her medications filled because someone was stealing her medications. Patient has had multiple psychiatric hospitalizations more than 20. Patient has a history of polysubstance dependence and a diagnosis of schizoaffective disorder. She is also an IV drug user PER ED REPORT: Patient arrived with psychosomatic complaints, as well as other delusional & disorganized thoughts. She cycled rapidly among belief that her skin was burning, bugs crawling all over her, sores/holes in her mouth & belief that her family had been killed. Patient was not physically aggressive, however highly verbally agitated, with excessive PMA. She refused/was unable to listen to reason & provided no rational thoughts. Patient often presents with similar psychosomatic complaints, usually associated with methamphetamine use. Today her sx & condition are much worse & she appears unsafe to adequately care for herself in the community. Patient could frequently be heard screaming that she was not using drugs, and her urine toxicology obtained in ED today was in fact, negative. VITAL SIGNS: See below. CONSULTANTS INVOLVED: See Medical H + P by Hospitalist TREATMENT AND PROGRESS ON THE UNIT: Patient was admitted to the [facility] on a legal status he was afforded the following treatment modalities: 1) Individual Therapy 2) Group Therapy 3) Medication Management 4) Milieu Therapy 5) Safe Environment HOSPITAL COURSE: Patient was admitted to [facility] on a legal status and was started on her home medications. . She has reported that she had not been taking her medications for 2 weeks. Thus, the probability that she had decompensated and was having delusions and paranoia. She was restarted on her Suboxone while she was in the hospital Suboxone was not prescribed is her provider, Dr. Mao prescribes this on the outside. . She is agreeable to returning to [facility], where she states that she has a good therapist and she is afraid that her current therapist is moving. In today's interview, patient requested to be discharged. States that she no longer feels suicidal. Doesn't feel paranoid or delusional. She was quite animated and happy. States that she feels ready and stable for discharge DISCHARGE ASSESSMENT: In today's interview, patient is alert and oriented, pts dress is appropriate. Hygiene and grooming is well-kempt. Smiles on approach and is pleasant and engaged in the interview. Denies depression and anxiety. Denies suicidal and homicidal ideation, planning or intent. Denies and is not observed with michael, psychotic symptoms of delusions, bizarre thinking, obsessions, paranoia, ruminations illogical thoughts, flight of ideas or having poor insight and judgement. Patient has normal mentation, declines further hospitalization on a voluntary status and meets criteria for discharge today. Patient encouraged to return to hospital if symptoms worsen or change and encouraged to call unit if he/she/they needs to speak to provider for questions regarding medications or care. MENTAL STATUS EXAMINATION ON DISCHARGE: Patient is a year old Speech: Is fluid, conversant, normal rate, tone and volume Language skills are intact Thought processes including: linear and goal oriented Thought content: denies depression and anxiety. Denies suicidal/homicidal ideat ion, planning or intent. Abstract reasoning, and computation: fair Description of associations: denies, none observed Description of abnormal or psychotic thoughts: denies, none observed. Judgment: fair Insight: fair Orientation: alert and oriented to person, place, time and situation Recent and remote memory: intact Attention span and concentration: good Language: expansive Fund of knowledge: average Mood: Euthymic Mood Affect: reactive MEDICATIONS ON DISCHARGE: See Medication Reconciliation PLAN/FOLLOWUP ARRANGEMENTS: The amount of time spent in the coordination of care for this patient was approximately 25 minutes. ETOH/Disorder Med Rx ETOH/DRUG DISORDER RX: N/A (Patient was prescribed Suboxone while inpatient, she agrees to reach out to Dr. Mao for her Suboxone Rx order) Vital Signs/I&Os Vital Signs Date Time Temp Pulse Resp B/P (MAP) Pulse Ox O2 Delivery O2 Flow Rate FiO2 08/02/20 06:24 98.3 81 16 110/69 (83) 100 Room Air Medications Scheduled Gabapentin (Gabapentin) 300 Mg Capsule, 600 MG PO TID for Anxiety, #21 Lurasidone Hydrochloride (Latuda) 20 Mg Tablet, 20 MG PO DAILY@08 for Mood, #7 Nicotine (Nicotine Patch) 21 Mg Patch.td24, 1 PATCH TD DAILY for Nicotine Withdrawal, #7 levETIRAcetam (levETIRAcetam) 1,000 Mg Tablet, 1,000 MG PO BID for Seizures, #14 Scheduled PRN Benztropine Mesylate (Benztropine Mesylate) 1 Mg Tablet, 1 MG PO BIDP PRN for EPS, #14 Sumatriptan Succinate (Sumatriptan Succinate) 25 Mg Tablet, 50 MG PO DAILYPRN PRN for MIGRAINE, #14 Trazodone HCl (Trazodone HCl) 50 Mg Tablet, 50 MG PO QHSP PRN for INSOMNIA, #7 Allergies Coded Allergies: Penicillins (Verified Allergy, Unknown, 06/29/20) dextroamphetamine (Verified Allergy, Unknown, 06/29/20) haloperidol (Verified Allergy, Unknown, 06/29/20) olanzapine (Verified Allergy, Unknown, 06/29/20) sulfamethoxazole (Verified Allergy, Unknown, 06/29/20) trimethoprim (Verified Allergy, Unknown, 06/29/20) ziprasidone (Verified Allergy, Unknown, 06/29/20) MARGARET PELAEZ NP Aug 02, 2020 14:18
== END 2020-08-02 12:20 | disposition home or self-care (01) | DRG 750 ==
LOC: M ED 06:12 → M ED INP 21:47 → M PSY 07-29 02:00
PROVIDERS: ADMIT Psychiatry & Neurology Psychiatry; ATTEND Psychiatry & Neurology Psychiatry
DX: F25.0 Schizoaffective disorder, bipolar type (principal); F15.10 Other stimulant abuse, uncomplicated; F17.210 Nicotine dependence, cigarettes, uncomplicated; Z91.14 Patient's other noncompliance with medication regimen; Z88.0 Allergy status to penicillin; Z88.8 Allergy status to other drugs, medicaments and biological substances; Z79.899 Other long term (current) drug therapy; Z20.822 Contact with and (suspected) exposure to COVID-19; B19.20 Unspecified viral hepatitis C without hepatic coma; F41.9 Anxiety disorder, unspecified; F32.9 Major depressive disorder, single episode, unspecified; G40.909 Epilepsy, unspecified, not intractable, without status epilepticus; G43.909 Migraine, unspecified, not intractable, without status migrainosus; S82.54XD Nondisplaced fracture of medial malleolus of right tibia, subsequent encounter for closed fracture with routine healing; S82.831D Other fracture of upper and lower end of right fibula, subsequent encounter for closed fracture with routine healing

== ENCOUNTER 2020-08-03 13:18 | Emergency (ER) | payer MEDICAID, OTHER ==
[~2020-08-03 13:18] MED LIST changes: +GABA-282 PO; +LEVE10003 PO; +SUMA25TA3 PO; +TRAZ-252 PO
[2020-08-03 13:45] VITALS: BP 126/88
== END 2020-08-03 15:51 | disposition home or self-care (01) ==
LOC: M ED 13:18
DX: F11.10 Opioid abuse, uncomplicated (principal); F16.10 Hallucinogen abuse, uncomplicated; F17.210 Nicotine dependence, cigarettes, uncomplicated; Z79.899 Other long term (current) drug therapy; Z88.0 Allergy status to penicillin; Z88.2 Allergy status to sulfonamides; Z88.8 Allergy status to other drugs, medicaments and biological substances

== ENCOUNTER 2020-08-05 02:56 | Emergency (ER) | payer OTHER ==
[~2020-08-05] VITALS: Ht 162.6 cm; Wt 72.7 kg
[2020-08-05] MEDS ORDERED: LORazepam 2 MG TAB PO ONE ×2 (03:15→04:15)
[2020-08-05] MEDS ORDERED: OLANZapine ORAL DISINTEGRATING TAB 5MG PO ONE (04:15)
[2020-08-05 18:30] LABS: HEMATOCRIT 39.9 % (36.0-47.0); HEMOGLOBIN 13.2 g/dl (12.0-15.5); MEAN CORPUSCULAR HEMOGLOBIN 29.1 pg (27.0-33.0); MEAN CORPUSCULAR HGB CONC 33.1 g/dl (32.0-36.5); MEAN CORPUSCULAR VOLUME 87.9 fl (80.0-96.0); PLATELET COUNT, AUTOMATED 318 10^3/uL (150-450); RED BLOOD COUNT 4.54 10^6/uL (4.00-5.40); WHITE BLOOD COUNT 5.9 10^3/uL (4.0-10.0)
[2020-08-05 18:41] LABS: HCG, SERUM QUALITATIVE NEGATIVE (NEGATIVE)
[2020-08-05 18:50] LABS: ACETAMINOPHEN LEVEL < 2.0 UG/ML (10.0-30.0); ALBUMIN 4.1 GM/DL (3.2-5.2); ALT/SGPT 36 U/L (12-78); BILIRUBIN,DIRECT 0.1 MG/DL (0.0-0.2); BILIRUBIN,TOTAL 0.5 MG/DL (0.2-1.0); BLOOD UREA NITROGEN 20 MG/DL (7-18); CALCIUM LEVEL 8.6 MG/DL (8.5-10.1); CARBON DIOXIDE LEVEL 29 MEQ/L (21-32); CHLORIDE LEVEL 105 MEQ/L (98-107); CPK CREATINE PHOSPHOKINASE 575 U/L (26-192); CREATININE FOR GFR 0.67 MG/DL (0.55-1.30); ETHYL ALCOHOL (ETHANOL) < 0.003 % (0.000-0.010); GLOMERULAR FILTRATION RATE > 60.0 (>60); GLUCOSE, FASTING 92 MG/DL (70-100); POTASSIUM SERUM 4.2 MEQ/L (3.5-5.1); SALICYLATE LEVEL 1.7 MG/DL (5.0-30.0); SODIUM LEVEL 139 MEQ/L (136-145); THYROID STIMULATING HORMONE 0.458 uIU/ML (0.358-3.740); TOTAL PROTEIN 7.6 GM/DL (6.4-8.2)
[2020-08-05 19:11] LABS: AMPHETAMINES LEVEL URINE POSITIVE (NEGATIVE); BARBITURATES URINE NEGATIVE (NEGATIVE); BENZODIAZEPINES URINE NEGATIVE (NEGATIVE); CANNABINOIDS URINE NEGATIVE (NEGATIVE); COCAINE METABOLITE URINE NEGATIVE (NEGATIVE); METHADONE URINE NEGATIVE (NEGATIVE); OPIATES URINE NEGATIVE (NEGATIVE); PHENCYCLIDINE URINE NEGATIVE (NEGATIVE)
[2020-08-05] MEDS ORDERED: NICO1DIS12 TOP (19:47)
[2020-08-05] MEDS ORDERED: TRAZ-186 PO (19:47)
[2020-08-05] MEDS ORDERED: LATU20TA PO (19:47)
[2020-08-05] MEDS ORDERED: GABA-282 PO (19:47)
[2020-08-05] MEDS ORDERED: FLUTISP NARES (19:47)
[2020-08-05] MEDS ORDERED: BENZ-52 PO (19:47)
[2020-08-05] MEDS ORDERED: CLON0.2T PO (19:47)
[2020-08-05] MEDS ORDERED: PATIENT COMMENT (19:49)
--- NOTE | 2020-08-06 03:22 | ECGEPIP ---
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
[2020-08-06 15:47] VITALS: BP 112/66
[2020-08-06] MEDS ORDERED: LORazepam 2 MG TAB PO ONE (16:15)
[2020-08-06] MEDS ORDERED: LORazepam 2 MG/ML VIAL IM STA (17:39)
== END 2020-08-06 17:57 ==
LOC: M ED 02:56
DX: F25.9 Schizoaffective disorder, unspecified (principal); F15.10 Other stimulant abuse, uncomplicated; F31.9 Bipolar disorder, unspecified; Z86.19 Personal history of other infectious and parasitic diseases; G43.909 Migraine, unspecified, not intractable, without status migrainosus; F17.200 Nicotine dependence, unspecified, uncomplicated; Z88.0 Allergy status to penicillin; Z88.8 Allergy status to other drugs, medicaments and biological substances; Z88.2 Allergy status to sulfonamides
CPT/HCPCS: 36415; 80048; 80076; 80143; 80307; 82077; 82550; 84443; 84703; 85027; 93005; 96372; 99285; J2060; U0002

== ENCOUNTER 2020-08-18 16:03 | Emergency (ER) | payer OTHER ==
[~2020-08-18] VITALS: Ht 152.4 cm; Wt 72.3 kg
[~2020-08-18 16:03] MED LIST changes: -DOXY100C37 PO; +DOXY1CAP62 PO; +FLUTISP NARES; +NICO1DIS12 TOP; +TRAZ-186 PO
[2020-08-18 16:10] VITALS: BP 128/71
== END 2020-08-18 16:57 | disposition home or self-care (01) ==
LOC: M ED 16:03
DX: F19.10 Other psychoactive substance abuse, uncomplicated (principal); F20.9 Schizophrenia, unspecified; Z79.899 Other long term (current) drug therapy; Z88.0 Allergy status to penicillin; Z88.1 Allergy status to other antibiotic agents; Z88.8 Allergy status to other drugs, medicaments and biological substances

== ENCOUNTER 2020-08-25 03:16 | Emergency (ER) | payer OTHER ==
[~2020-08-25] VITALS: Ht 152.4 cm; Wt 72.0 kg
[2020-08-25 03:27] VITALS: BP 142/97
--- NOTE | 2020-08-25 05:19 | ED PDOC ---
Post-Departure Follow-Up Patient observed during nursing orientation questions by provider. Patient aler t and oriented, not SI/HI telling staff to just leave her "the fuck alone." Patient was advised if she wanted to be seen she would need to be cooperative and not verbally assaulting staff or she would be removed. Patient continued to yell at staff so PD removed patient. See nursing documentation for further details. DONALDO MCKEON, DO Aug 25, 2020 05:19
== END 2020-08-25 05:18 | disposition left against medical advice (07) ==
LOC: M ED 03:16
DX: Z53.21 Procedure and treatment not carried out due to patient leaving prior to being seen by health care provider (principal)

== ENCOUNTER 2020-08-25 06:39 | Emergency (ER) | payer OTHER ==
[~2020-08-25] VITALS: Ht 152.4 cm; Wt 70.5 kg
[2020-08-25] MEDS ORDERED: OLANZapine INTRAMUSCULAR 10MG VIAL IM ONE (07:05)
[2020-08-25 08:34] LABS: HEMATOCRIT 39.6 % (36.0-47.0); HEMOGLOBIN 12.5 g/dl (12.0-15.5); MEAN CORPUSCULAR HGB CONC 31.6 g/dl (32.0-36.5); MEAN CORPUSCULAR VOLUME 91.9 fl (80.0-96.0); PLATELET COUNT, AUTOMATED 279 10^3/uL (150-450); RED BLOOD COUNT 4.31 10^6/uL (4.00-5.40); WHITE BLOOD COUNT 5.2 10^3/uL (4.0-10.0)
[2020-08-25 09:08] LABS: ACETAMINOPHEN LEVEL < 2.0 UG/ML (10.0-30.0); ALBUMIN 4.2 GM/DL (3.2-5.2); ALT/SGPT 51 U/L (12-78); BILIRUBIN,DIRECT 0.1 MG/DL (0.0-0.2); BILIRUBIN,TOTAL 0.4 MG/DL (0.2-1.0); BLOOD UREA NITROGEN 9 MG/DL (7-18); CALCIUM LEVEL 9.2 MG/DL (8.5-10.1); CARBON DIOXIDE LEVEL 26 MEQ/L (21-32); CHLORIDE LEVEL 107 MEQ/L (98-107); ETHYL ALCOHOL (ETHANOL) 0.003 % (0.000-0.010); GLOMERULAR FILTRATION RATE > 60.0 (>60); GLUCOSE, FASTING 98 MG/DL (70-100); POTASSIUM SERUM 4.8 MEQ/L (3.5-5.1); SALICYLATE LEVEL 2.9 MG/DL (5.0-30.0); SODIUM LEVEL 140 MEQ/L (136-145); THYROID STIMULATING HORMONE 0.415 uIU/ML (0.358-3.740); TOTAL PROTEIN 7.4 GM/DL (6.4-8.2)
[2020-08-25 10:16] LABS: HCG, SERUM QUALITATIVE NEGATIVE (NEGATIVE)
[2020-08-25 11:02] LABS: AMPHETAMINES LEVEL URINE POSITIVE (NEGATIVE); BARBITURATES URINE NEGATIVE (NEGATIVE); BENZODIAZEPINES URINE NEGATIVE (NEGATIVE); CANNABINOIDS URINE NEGATIVE (NEGATIVE); COCAINE METABOLITE URINE NEGATIVE (NEGATIVE); METHADONE URINE NEGATIVE (NEGATIVE); OPIATES URINE NEGATIVE (NEGATIVE); PHENCYCLIDINE URINE NEGATIVE (NEGATIVE)
[2020-08-25 16:32] LABS: RSV AMPLIFICATION NEGATIVE (NEGATIVE)
[2020-08-25] MEDS ORDERED: LORazepam 2 MG TAB PO STA (17:14)
[2020-08-25] MEDS ORDERED: diphenhydrAMINE 50MG/ML VIAL (J1200) IM STA (17:23)
[2020-08-25] MEDS ORDERED: LORazepam 2 MG/ML VIAL IM STA ×3 (17:23→21:40)
[2020-08-25] MEDS ORDERED: diphenhydrAMINE 50MG/ML VIAL (J1200) IM ONE (21:40)
[2020-08-25 22:07] VITALS: BP 147/83
--- NOTE | 2020-08-26 17:54 | ECGEPIP ---
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
== END 2020-08-25 22:14 ==
LOC: M ED 06:39
DX: F60.0 Paranoid personality disorder (principal); F32.9 Major depressive disorder, single episode, unspecified; Z86.19 Personal history of other infectious and parasitic diseases; F41.9 Anxiety disorder, unspecified; F19.10 Other psychoactive substance abuse, uncomplicated; G43.909 Migraine, unspecified, not intractable, without status migrainosus; R56.9 Unspecified convulsions; F17.200 Nicotine dependence, unspecified, uncomplicated; Z79.899 Other long term (current) drug therapy; Z88.0 Allergy status to penicillin; Z88.8 Allergy status to other drugs, medicaments and biological substances
CPT/HCPCS: 36415; 80048; 80076; 80143; 80307; 82077; 84443; 84703; 85027; 87631; 93005; 96372; 99285; J1200; J2060

== ENCOUNTER 2020-08-29 02:00 | Emergency (ER) | payer OTHER ==
[2020-08-29 02:20] VITALS: BP 157/83
[2020-08-29] MEDS ORDERED: levETIRAcetam 250MG TABLET (KEPPRA) PO ONE (02:35)
[2020-08-29] MEDS ORDERED: ACETAMINOPHEN 325 MG TAB PO ONE (02:35)
[2020-08-29] MEDS ORDERED: GI COCKTAIL 50ML BTL(HYOSCYAMINE/MAALOX/LIDOCAINE VISCOUS)(1:3:1) PO ONE (03:30)
[2020-08-29 05:01] LABS: BASO % 0.4 % (0.0-1.0); EOS # 0.1 10^3/uL (0.0-0.5); EOS % 0.5 % (0.0-3.0); HEMATOCRIT 37.2 % (36.0-47.0); HEMOGLOBIN 11.9 g/dl (12.0-15.5); LYMPH # 1.6 10^3/uL (1.5-5.0); LYMPH % 17.3 % (24.0-44.0); MEAN CORPUSCULAR HEMOGLOBIN 28.7 pg (27.0-33.0); MEAN CORPUSCULAR VOLUME 89.9 fl (80.0-96.0); MONO # 0.6 10^3/uL (0.0-0.8); MONO % 5.9 % (2.0-8.0); NEUTROPHILS % 75.5 % (36.0-66.0); PLATELET COUNT, AUTOMATED 312 10^3/uL (150-450); RED BLOOD COUNT 4.14 10^6/uL (4.00-5.40); WHITE BLOOD COUNT 9.3 10^3/uL (4.0-10.0)
[2020-08-29 05:25] LABS: HCG, SERUM QUALITATIVE NEGATIVE (NEGATIVE)
[2020-08-29 05:32] LABS: ACETAMINOPHEN LEVEL 3.5 UG/ML (10.0-30.0); ALBUMIN 3.9 GM/DL (3.2-5.2); ALT/SGPT 39 U/L (12-78); BILIRUBIN,DIRECT < 0.1 MG/DL (0.0-0.2); BILIRUBIN,TOTAL 0.3 MG/DL (0.2-1.0); BLOOD UREA NITROGEN 6 MG/DL (7-18); CALCIUM LEVEL 9.3 MG/DL (8.5-10.1); CARBON DIOXIDE LEVEL 26 MEQ/L (21-32); CHLORIDE LEVEL 108 MEQ/L (98-107); CREATININE FOR GFR 0.53 MG/DL (0.55-1.30); ETHYL ALCOHOL (ETHANOL) < 0.003 % (0.000-0.010); GLOMERULAR FILTRATION RATE > 60.0 (>60); GLUCOSE, FASTING 106 MG/DL (70-100); LIPASE 39 U/L (73-393); POTASSIUM SERUM 4.1 MEQ/L (3.5-5.1); SALICYLATE LEVEL 2.8 MG/DL (5.0-30.0); SODIUM LEVEL 141 MEQ/L (136-145); THYROID STIMULATING HORMONE 0.416 uIU/ML (0.358-3.740); TOTAL PROTEIN 7.2 GM/DL (6.4-8.2)
--- NOTE | 2020-08-29 06:19 | REPVR ---
PROCEDURE INFORMATION: Exam: XR Chest Exam date and time: 08/29/2020 5:38 AM Age: 35 years old Clinical indication: Other: Chest pain TECHNIQUE: Imaging protocol: XR of the chest. Views: 2 views. COMPARISON: CR PORTABLE CHEST X-RAY 06/10/2020 2:40 AM FINDINGS: Lungs: Unremarkable. No consolidation. Pleural spaces: Unremarkable. No pleural effusion. No pneumothorax. Heart/Mediastinum: Unremarkable. No cardiomegaly. Bones/joints: Unremarkable. IMPRESSION: No acute findings. Electronically signed by: Demetria Seymour On 08/29/2020 06:19:37 AM
[2020-08-29] MEDS ORDERED: ASEN5TA SL (08:14)
[2020-08-29] MEDS ORDERED: GABA-282 PO (08:14)
[2020-08-29] MEDS ORDERED: KEPP10002 PO (08:14)
[2020-08-29 09:32] LABS: CK-MB VALUE MASS 3.7 NG/ML (<3.6); CPK CREATINE PHOSPHOKINASE 357 U/L (26-192); MB/CK RELATIVE INDEX 1.04 (< OR =4); TROPONIN I < 0.02 NG/ML (< 0.10)
--- NOTE | 2020-08-29 18:13 | ECGEPIP ---
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
== END 2020-08-29 09:53 | disposition home or self-care (01) ==
LOC: M ED 02:00
DX: R10.9 Unspecified abdominal pain (principal); R51.9 Headache, unspecified; S00.91XA Abrasion of unspecified part of head, initial encounter; Z76.0 Encounter for issue of repeat prescription; F19.10 Other psychoactive substance abuse, uncomplicated; R07.9 Chest pain, unspecified; X58.XXXA Exposure to other specified factors, initial encounter; Y92.9 Unspecified place or not applicable; Y93.9 Activity, unspecified; Y99.9 Unspecified external cause status; Z86.19 Personal history of other infectious and parasitic diseases; R56.9 Unspecified convulsions; E03.9 Hypothyroidism, unspecified; Z86.16 Personal history of COVID-19; F25.9 Schizoaffective disorder, unspecified; F17.200 Nicotine dependence, unspecified, uncomplicated; Z79.899 Other long term (current) drug therapy; Z88.0 Allergy status to penicillin; Z88.8 Allergy status to other drugs, medicaments and biological substances; Z88.2 Allergy status to sulfonamides

== ENCOUNTER 2020-08-31 16:48 | Emergency (ER) | payer OTHER ==
[~2020-08-31] VITALS: Ht 152.4 cm; Wt 69.8 kg
[2020-08-31 16:48] VITALS: BP 118/66
[~2020-08-31 16:48] MED LIST changes: +ASEN5TA SL
== END 2020-08-31 20:14 | disposition left against medical advice (07) ==
LOC: M ED 16:48
DX: Z53.21 Procedure and treatment not carried out due to patient leaving prior to being seen by health care provider (principal)

== ENCOUNTER 2020-09-02 16:35 | Emergency (ER) | payer OTHER ==
[~2020-09-02] VITALS: Ht 152.4 cm; Wt 67.6 kg
[2020-09-02 16:36] VITALS: BP 132/66
[2020-09-02] MEDS ORDERED: NYST50SS PO (18:19)
== END 2020-09-02 18:32 | disposition home or self-care (01) ==
LOC: M ED 16:35
DX: B37.0 Candidal stomatitis (principal); G43.909 Migraine, unspecified, not intractable, without status migrainosus; F31.9 Bipolar disorder, unspecified; Z86.19 Personal history of other infectious and parasitic diseases; F17.200 Nicotine dependence, unspecified, uncomplicated; F19.10 Other psychoactive substance abuse, uncomplicated

== ENCOUNTER 2020-09-05 00:42 | Emergency (ER) | payer OTHER ==
[~2020-09-05 00:42] MED LIST changes: +CLIN-250; +CLIN-250 PO; -CLIN300C6; -CLIN300C6 PO; +DOXY-443 PO; -DOXY1CAP62 PO; +FLUTISP; -FLUTISP NARES; -IBUP200T45 PO; +IBUP200T46 PO; -LATU80TA; +LATU80TA2; +NYST50SS PO; -QUET50TA3 PO; +QUET50TA4 PO
[2020-09-05] MEDS ORDERED: diphenhydrAMINE 50MG/ML VIAL (J1200) IM ONE (00:55)
[2020-09-05] MEDS ORDERED: OLANZapine INTRAMUSCULAR 10MG VIAL IM ONE (00:55)
[2020-09-05] MEDS ORDERED: LORazepam 2 MG/ML VIAL IM ONE (00:55)
[2020-09-05] MEDS ORDERED: LORazepam 2 MG/ML VIAL As Ordered ONE (01:01)
[2020-09-05 02:37] LABS: AMPHETAMINES LEVEL URINE NEGATIVE (NEGATIVE); BARBITURATES URINE NEGATIVE (NEGATIVE); BENZODIAZEPINES URINE NEGATIVE (NEGATIVE); CANNABINOIDS URINE NEGATIVE (NEGATIVE); COCAINE METABOLITE URINE NEGATIVE (NEGATIVE); METHADONE URINE NEGATIVE (NEGATIVE); OPIATES URINE NEGATIVE (NEGATIVE); PHENCYCLIDINE URINE NEGATIVE (NEGATIVE)
[2020-09-05 05:17] LABS: HEMATOCRIT 39.1 % (36.0-47.0); HEMOGLOBIN 12.6 g/dl (12.0-15.5); MEAN CORPUSCULAR HEMOGLOBIN 28.6 pg (27.0-33.0); MEAN CORPUSCULAR HGB CONC 32.2 g/dl (32.0-36.5); MEAN CORPUSCULAR VOLUME 88.7 fl (80.0-96.0); PLATELET COUNT, AUTOMATED 333 10^3/uL (150-450); RED BLOOD COUNT 4.41 10^6/uL (4.00-5.40); WHITE BLOOD COUNT 7.1 10^3/uL (4.0-10.0)
[2020-09-05 05:41] LABS: HCG, SERUM QUALITATIVE NEGATIVE (NEGATIVE)
[2020-09-05 05:48] LABS: ACETAMINOPHEN LEVEL < 2.0 UG/ML (10.0-30.0); ALBUMIN 4.1 GM/DL (3.2-5.2); ALT/SGPT 25 U/L (12-78); BILIRUBIN,DIRECT 0.1 MG/DL (0.0-0.2); BILIRUBIN,TOTAL 0.5 MG/DL (0.2-1.0); BLOOD UREA NITROGEN 15 MG/DL (7-18); CALCIUM LEVEL 9.3 MG/DL (8.5-10.1); CARBON DIOXIDE LEVEL 27 MEQ/L (21-32); CHLORIDE LEVEL 106 MEQ/L (98-107); CREATININE FOR GFR 0.47 MG/DL (0.55-1.30); ETHYL ALCOHOL (ETHANOL) < 0.003 % (0.000-0.010); GLOMERULAR FILTRATION RATE > 60.0 (>60); GLUCOSE, FASTING 75 MG/DL (70-100); POTASSIUM SERUM 4.1 MEQ/L (3.5-5.1); SODIUM LEVEL 141 MEQ/L (136-145); THYROID STIMULATING HORMONE 0.888 uIU/ML (0.358-3.740); TOTAL PROTEIN 7.3 GM/DL (6.4-8.2)
[2020-09-05 14:08] VITALS: BP 109/58
[2020-10-05] MEDS ORDERED: CITA10TA7 PO (08:33)
[2020-10-05] MEDS ORDERED: CHLO100T30 PO (08:33)
[2020-10-12] MEDS ORDERED: CITA10TA7 PO (10:15)
== END 2020-09-05 14:11 | disposition home or self-care (01) ==
LOC: M ED 00:42
DX: F19.20 Other psychoactive substance dependence, uncomplicated (principal); F17.200 Nicotine dependence, unspecified, uncomplicated; B18.2 Chronic viral hepatitis C; Z88.0 Allergy status to penicillin; Z88.1 Allergy status to other antibiotic agents; Z88.2 Allergy status to sulfonamides; Z88.8 Allergy status to other drugs, medicaments and biological substances
CPT/HCPCS: 80048; 80076; 80143; 80307; 82077; 84443; 84703; 85027; 96372; 99285; J1200; J2060

== ENCOUNTER 2020-09-08 00:49 | Emergency (ER) | payer OTHER ==
[~2020-09-08] VITALS: Ht 152.4 cm; Wt 67.5 kg
[~2020-09-08 00:49] MED LIST changes: -CLIN-250; -CLIN-250 PO; +CLIN300C6; +CLIN300C6 PO; -DOXY-443 PO; +DOXY1CAP62 PO; -FLUTISP; +FLUTISP NARES; +IBUP200T45 PO; -IBUP200T46 PO; +LATU80TA; -LATU80TA2; +QUET50TA3 PO; -QUET50TA4 PO
[2020-09-08] MEDS ORDERED: DOXY-350 PO (09:25)
[2020-09-08] MEDS ORDERED: metroNIDAZOLE (FLAGYL) 500MG TABLET PO ONE (09:30)
[2020-09-08 09:35] VITALS: BP 116/65
[2020-09-08 09:39] LABS: GC DNA AMPLIFICATION NEGATIVE (NEGATIVE)
== END 2020-09-08 09:36 | disposition home or self-care (01) ==
LOC: M ED 00:49
DX: A59.01 Trichomonal vulvovaginitis (principal); R30.0 Dysuria; F19.10 Other psychoactive substance abuse, uncomplicated; Z79.899 Other long term (current) drug therapy; Z88.0 Allergy status to penicillin; Z88.8 Allergy status to other drugs, medicaments and biological substances

== ENCOUNTER 2020-09-08 12:42 | Emergency (ER) | payer OTHER ==
[~2020-09-08] VITALS: Ht 152.4 cm; Wt 66.7 kg
[2020-09-08 12:42] VITALS: BP 139/74
[2020-09-08] MEDS ORDERED: OMEPRAZOLE 20 MG CAP PO ONE (13:35)
[2020-09-08] MEDS ORDERED: BOUDREAUX'S BUTT PASTE TOP ONE (13:35)
[2020-09-08] MEDS ORDERED: ACETAMINOPHEN TAB 650MG DOSE (2X325MG) PO ONE (13:35)
[2020-09-08] MEDS ORDERED: diphenhydrAMINE 25MG CAP PO ONE (14:00)
== END 2020-09-08 15:55 | disposition home or self-care (01) ==
LOC: M ED 12:42
DX: Z53.9 Procedure and treatment not carried out, unspecified reason (principal); R51.9 Headache, unspecified; R10.84 Generalized abdominal pain; R56.9 Unspecified convulsions; F41.9 Anxiety disorder, unspecified; F20.9 Schizophrenia, unspecified; F19.950 Other psychoactive substance use, unspecified with psychoactive substance-induced psychotic disorder with delusions; Z87.11 Personal history of peptic ulcer disease; Z87.442 Personal history of urinary calculi; Z86.16 Personal history of COVID-19; F17.200 Nicotine dependence, unspecified, uncomplicated; Z79.899 Other long term (current) drug therapy; Z88.0 Allergy status to penicillin; Z88.8 Allergy status to other drugs, medicaments and biological substances

== ENCOUNTER 2020-09-09 22:32 | Emergency (ER) | payer OTHER ==
[~2020-09-09] VITALS: Ht 152.4 cm; Wt 66.7 kg
[2020-09-09 23:20] LABS: HEMATOCRIT 39.4 % (36.0-47.0); HEMOGLOBIN 12.9 g/dl (12.0-15.5); MEAN CORPUSCULAR HEMOGLOBIN 28.8 pg (27.0-33.0); MEAN CORPUSCULAR HGB CONC 32.7 g/dl (32.0-36.5); MEAN CORPUSCULAR VOLUME 87.9 fl (80.0-96.0); PLATELET COUNT, AUTOMATED 350 10^3/uL (150-450); RED BLOOD COUNT 4.48 10^6/uL (4.00-5.40); WHITE BLOOD COUNT 7.1 10^3/uL (4.0-10.0)
[2020-09-10 00:02] LABS: ACETAMINOPHEN LEVEL < 2.0 UG/ML (10.0-30.0); ALBUMIN 4.2 GM/DL (3.2-5.2); ALT/SGPT 29 U/L (12-78); BILIRUBIN,DIRECT 0.1 MG/DL (0.0-0.2); BILIRUBIN,TOTAL 0.3 MG/DL (0.2-1.0); BLOOD UREA NITROGEN 9 MG/DL (7-18); CALCIUM LEVEL 9.2 MG/DL (8.5-10.1); CARBON DIOXIDE LEVEL 24 MEQ/L (21-32); CHLORIDE LEVEL 107 MEQ/L (98-107); CREATININE FOR GFR 0.66 MG/DL (0.55-1.30); ETHYL ALCOHOL (ETHANOL) < 0.003 % (0.000-0.010); GLOMERULAR FILTRATION RATE > 60.0 (>60); GLUCOSE, FASTING 94 MG/DL (70-100); POTASSIUM SERUM 4.5 MEQ/L (3.5-5.1); SALICYLATE LEVEL 3.9 MG/DL (5.0-30.0); SODIUM LEVEL 141 MEQ/L (136-145); TOTAL PROTEIN 7.4 GM/DL (6.4-8.2)
[2020-09-10] MEDS ORDERED: LORazepam 2 MG TAB PO STA (01:46)
[2020-09-10 01:50] LABS: AMPHETAMINES LEVEL URINE NEGATIVE (NEGATIVE); BARBITURATES URINE NEGATIVE (NEGATIVE); BENZODIAZEPINES URINE NEGATIVE (NEGATIVE); CANNABINOIDS URINE NEGATIVE (NEGATIVE); COCAINE METABOLITE URINE NEGATIVE (NEGATIVE); METHADONE URINE NEGATIVE (NEGATIVE); OPIATES URINE POSITIVE (NEGATIVE); PHENCYCLIDINE URINE NEGATIVE (NEGATIVE)
[2020-09-10] MEDS ORDERED: OLANZapine ORAL DISINTEGRATING TAB 5MG PO ONE (01:50)
[2020-09-10 19:13] LABS: RSV AMPLIFICATION NEGATIVE (NEGATIVE)
[2020-09-11] MEDS ORDERED: GABAPENTIN 300 MG CAP PO ONE (10:40)
[2020-09-11] MEDS ORDERED: levETIRAcetam 250MG TABLET (KEPPRA) PO ONE ×2 (10:40→11:00)
[2020-09-11] MEDS ORDERED: cloNIDine 0.2 MG TAB PO ONE (10:40)
[2020-09-11] MEDS ORDERED: NYSTATIN 500,000 U/5 ML SUSP UDC PO ONE (10:40)
--- NOTE | 2020-09-11 11:02 | ECGEPIP ---
[facility] - ED Test Date: 2020-09-11 Pat Name: MELANY LEE Department: Room: - Gender: Female Clinical Sciences Professor: riccardo : 1985 Requested By: Seth Limon Order Number: [id number] Reading MD: Shirley Spears Measurements Intervals [place] Rate: 85 P: 63 MD: 140 QRS: 43 QRSD: 80 T: 31 QT: 376 QTc: 447 Interpretive Statements Normal sinus rhythm Nonspecific ST abnormality increased rate 08/29/20 Electronically Signed on 09-11-2020 11:01:57 EDT by Shirley Spears
[2020-09-11] MEDS ORDERED: BUPR1FIL SL (11:07)
--- NOTE | 2020-09-11 11:29 | ED PDOC ---
Post-Departure Follow-Up Patient required transfer due to lack of capacity on [facility], after admission origi bigg arranged. T-sheet already scanned into [employer] and is in Medical Records, and it is not available. Dr. Hood, at [facility], was consulted and accepted the patient in transfer. Seth Mari M.D. Sep 11, 2020 11:28
[2020-09-11 14:12] VITALS: BP 106/56
== END 2020-09-11 14:15 ==
LOC: M ED 22:32 → CANBEDREQ 09-11 09:59 → M ED 09-11 14:15
DX: F23 Brief psychotic disorder (principal); F41.9 Anxiety disorder, unspecified; F32.9 Major depressive disorder, single episode, unspecified; F19.10 Other psychoactive substance abuse, uncomplicated; G43.909 Migraine, unspecified, not intractable, without status migrainosus; Z86.19 Personal history of other infectious and parasitic diseases; F17.200 Nicotine dependence, unspecified, uncomplicated; Z79.899 Other long term (current) drug therapy; Z88.0 Allergy status to penicillin; Z88.2 Allergy status to sulfonamides; Z88.8 Allergy status to other drugs, medicaments and biological substances

== ENCOUNTER 2020-10-02 17:26 | Emergency (ER) | payer OTHER ==
[~2020-10-02] VITALS: Ht 152.4 cm; Wt 71.3 kg
[2020-10-02 17:26] VITALS: BP 139/78
[~2020-10-02 17:26] MED LIST changes: +BUPR1FIL SL; +CLIN-250; +CLIN-250 PO; -CLIN300C6; -CLIN300C6 PO; +DOXY-443 PO; -DOXY1CAP62 PO; +FLUTISP; -FLUTISP NARES; -IBUP200T45 PO; +IBUP200T46 PO; -LATU80TA; +LATU80TA2; -QUET50TA3 PO; +QUET50TA4 PO
[2020-10-02] MEDS ORDERED: LORazepam 2 MG TAB PO STA (19:40)
[2020-10-05] MEDS ORDERED: CHLO100T30 PO (08:33)
[2020-10-05] MEDS ORDERED: CITA10TA7 PO (08:33)
[2020-10-12] MEDS ORDERED: CITA10TA7 PO (10:15)
== END 2020-10-02 22:10 | disposition home or self-care (01) ==
LOC: M ED 17:26
DX: F19.10 Other psychoactive substance abuse, uncomplicated (principal); F17.200 Nicotine dependence, unspecified, uncomplicated; Z79.899 Other long term (current) drug therapy; Z88.0 Allergy status to penicillin; Z88.8 Allergy status to other drugs, medicaments and biological substances

== ENCOUNTER 2020-10-04 19:17 | Emergency (ER) | payer OTHER ==
[~2020-10-04] VITALS: Ht 152.4 cm; Wt 73.6 kg
[~2020-10-04 19:17] MED LIST changes: -CLIN-250; -CLIN-250 PO; +CLIN300C6; +CLIN300C6 PO; -DOXY-443 PO; +DOXY1CAP62 PO; -FLUTISP; +FLUTISP NARES; +IBUP200T45 PO; -IBUP200T46 PO; +LATU80TA; -LATU80TA2
[2020-10-05] MEDS ORDERED: SUMAtriptan SUCCINATE 25 MG TAB PO ONE (06:50)
--- NOTE | 2020-10-05 07:41 | REP ---
INDICATION: cough with productive sputum, non bloody. COMPARISON: Comparison chest x-ray August 29, 2020. TECHNIQUE: Sitting AP and lateral views of the chest are provided... FINDINGS: The lungs are well inflated and free of infiltrate. The pleural angles are sharp. The heart size is normal. Pulmonary vasculature is not increased. No significant bony abnormality is seen. IMPRESSION: No active disease.. <Electronically signed by Praveen Her > 10/05/20 [id number]
--- NOTE | 2020-10-05 07:43 | REP ---
INDICATION: burning, pain ant tib/fib. COMPARISON: Comparison radiographs are from July 29, 2020.. TECHNIQUE: Four views of the right calf are provided. FINDINGS: Four views of the right calf demonstrate some healing periosteal reaction in the distal fibular metaphysis from known recent fracture. No acute fracture is seen.. No subluxation is noted. Ankle mortise and knee articulations appear normally aligned. There is mild posttraumatic deformity in the proximal fibular head from a healed fracture of the proximal fibular head as well.. No opaque foreign body noted. There is mild anterolateral soft tissue swelling at the ankle. IMPRESSION: No acute bony abnormality. Healed or healing posttraumatic changes in the proximal and distal fibula.. <Electronically signed by Praveen Her > 10/05/20 [id number]
[2020-10-05] MEDS ORDERED: PROAAER10 INH (07:46)
[2020-10-05] MEDS ORDERED: SUMA25TA3 PO (07:48)
[2020-10-05 08:33] VITALS: BP 98/53
[2020-10-05] MEDS ORDERED: CHLO100T30 (08:33)
[2020-10-05] MEDS ORDERED: CITA10TA5 (08:33)
== END 2020-10-05 08:37 | disposition home or self-care (01) ==
LOC: M ED 19:17
DX: R51.9 Headache, unspecified (principal); R05 Cough; M79.661 Pain in right lower leg; Z86.19 Personal history of other infectious and parasitic diseases; R56.9 Unspecified convulsions; E03.9 Hypothyroidism, unspecified; F25.9 Schizoaffective disorder, unspecified; F60.0 Paranoid personality disorder; F17.200 Nicotine dependence, unspecified, uncomplicated; F19.10 Other psychoactive substance abuse, uncomplicated; Z79.899 Other long term (current) drug therapy; Z88.0 Allergy status to penicillin; Z88.8 Allergy status to other drugs, medicaments and biological substances; Z88.2 Allergy status to sulfonamides

== ENCOUNTER 2020-10-05 17:58 | Emergency (ER) | payer OTHER ==
[~2020-10-05] VITALS: Ht 152.4 cm; Wt 70.0 kg
[~2020-10-05 17:58] MED LIST changes: +CITA10TA5; +PROAAER10 INH
[2020-10-06 06:51] LABS: HEMATOCRIT 35.8 % (36.0-47.0); HEMOGLOBIN 11.4 g/dl (12.0-15.5); MEAN CORPUSCULAR HEMOGLOBIN 29.8 pg (27.0-33.0); MEAN CORPUSCULAR HGB CONC 31.8 g/dl (32.0-36.5); MEAN CORPUSCULAR VOLUME 93.5 fl (80.0-96.0); PLATELET COUNT, AUTOMATED 314 10^3/uL (150-450); RED BLOOD COUNT 3.83 10^6/uL (4.00-5.40); WHITE BLOOD COUNT 6.3 10^3/uL (4.0-10.0)
[2020-10-06 07:01] LABS: HCG, SERUM QUALITATIVE NEGATIVE (NEGATIVE)
[2020-10-06] MEDS ORDERED: diphenhydrAMINE 50MG/ML VIAL (J1200) IM ONE (07:05)
[2020-10-06] MEDS ORDERED: LORazepam 2 MG/ML VIAL IM ONE (07:05)
[2020-10-06] MEDS ORDERED: HALOPERIDOL 5MG/ML VIAL (J1630 PER 1) IM ONE (07:05)
[2020-10-06 07:33] LABS: ACETAMINOPHEN LEVEL < 2.0 UG/ML (10.0-30.0); ALBUMIN 3.5 GM/DL (3.2-5.2); ALT/SGPT 37 U/L (12-78); BILIRUBIN,DIRECT 0.1 MG/DL (0.0-0.2); BILIRUBIN,TOTAL 0.3 MG/DL (0.2-1.0); BLOOD UREA NITROGEN 13 MG/DL (7-18); CALCIUM LEVEL 8.2 MG/DL (8.5-10.1); CARBON DIOXIDE LEVEL 25 MEQ/L (21-32); CHLORIDE LEVEL 108 MEQ/L (98-107); ETHYL ALCOHOL (ETHANOL) < 0.003 % (0.000-0.010); GLOMERULAR FILTRATION RATE > 60.0 (>60); GLUCOSE, FASTING 76 MG/DL (70-100); POTASSIUM SERUM 4.1 MEQ/L (3.5-5.1); SALICYLATE LEVEL 2.4 MG/DL (5.0-30.0); SODIUM LEVEL 141 MEQ/L (136-145); THYROID STIMULATING HORMONE 0.383 uIU/ML (0.358-3.740); TOTAL PROTEIN 6.5 GM/DL (6.4-8.2)
[2020-10-06] MEDS ORDERED: ACETAMINOPHEN TAB 650MG DOSE (2X325MG) PO ONE (12:45)
[2020-10-06 13:11] VITALS: BP 125/81
[2020-10-07] MEDS ORDERED: CEPH500C PO (13:16)
== END 2020-10-06 13:13 | disposition home or self-care (01) ==
LOC: M ED 17:58
DX: F19.10 Other psychoactive substance abuse, uncomplicated (principal); F11.10 Opioid abuse, uncomplicated; F17.200 Nicotine dependence, unspecified, uncomplicated; Z79.899 Other long term (current) drug therapy; Z88.0 Allergy status to penicillin; Z88.2 Allergy status to sulfonamides; Z88.8 Allergy status to other drugs, medicaments and biological substances

== ENCOUNTER 2020-10-07 11:25 | Emergency (ER) | payer OTHER ==
[~2020-10-07] VITALS: Ht 152.4 cm; Wt 70.9 kg
[~2020-10-07 11:25] MED LIST changes: +CHLO100T30 PO; -CITA10TA5; +CITA10TA5 PO
[2020-10-07] MEDS ORDERED: LIDOCAINE VISCOUS 2% SOLN 15ML UDC MT ONE (13:05)
[2020-10-07] MEDS ORDERED: CEPH500C PO (13:16)
[2020-10-07] MEDS ORDERED: ACETAMINOPHEN TAB 650MG DOSE (2X325MG) PO ONE (13:30)
[2020-10-07 13:42] VITALS: BP 140/79
[2020-10-08] MEDS ORDERED: SUMA25TA3 PO (13:33)
[2020-10-08] MEDS ORDERED: PROAAER10 INH (13:33)
[2020-10-08] MEDS ORDERED: KEPP10002 PO (13:33)
== END 2020-10-07 13:46 | disposition home or self-care (01) ==
LOC: M ED 11:25
DX: J02.0 Streptococcal pharyngitis (principal); N92.1 Excessive and frequent menstruation with irregular cycle; F17.200 Nicotine dependence, unspecified, uncomplicated; F19.10 Other psychoactive substance abuse, uncomplicated; Z79.899 Other long term (current) drug therapy; Z88.0 Allergy status to penicillin; Z88.8 Allergy status to other drugs, medicaments and biological substances; Z88.2 Allergy status to sulfonamides

== ENCOUNTER 2020-10-08 03:45 | Emergency (ER) | payer OTHER ==
[~2020-10-08] VITALS: Ht 154.9 cm; Wt 71.0 kg
[2020-10-08 03:45] VITALS: BP 155/87
[2020-10-08] MEDS ORDERED: PROAAER10 INH (13:33)
[2020-10-08] MEDS ORDERED: KEPP10002 PO (13:33)
[2020-10-08] MEDS ORDERED: SUMA25TA3 PO (13:33)
== END 2020-10-08 05:37 | disposition left against medical advice (07) ==
LOC: M ED 05:24
DX: Z53.21 Procedure and treatment not carried out due to patient leaving prior to being seen by health care provider (principal)

== ENCOUNTER 2020-10-08 05:54 | Inpatient (IN) | payer MEDICAID, OTHER ==
[~2020-10-08] VITALS: Ht 152.4 cm; Wt 59.1 kg
[2020-10-08] MEDS ORDERED: diphenhydrAMINE 50MG/ML VIAL (J1200) IM ONE (06:30)
[2020-10-08] MEDS ORDERED: LORazepam 2 MG/ML VIAL IM ONE (06:30)
[2020-10-08] MEDS ORDERED: HALOPERIDOL 5MG/ML VIAL (J1630 PER 1) IM ONE (06:30)
[2020-10-08] MEDS ORDERED: LORazepam 2 MG/ML VIAL As Ordered ONE (06:33)
[2020-10-08 07:32] LABS: AMPHETAMINES LEVEL URINE POSITIVE (NEGATIVE); BARBITURATES URINE NEGATIVE (NEGATIVE); BENZODIAZEPINES URINE NEGATIVE (NEGATIVE); CANNABINOIDS URINE NEGATIVE (NEGATIVE); COCAINE METABOLITE URINE NEGATIVE (NEGATIVE); METHADONE URINE NEGATIVE (NEGATIVE); OPIATES URINE NEGATIVE (NEGATIVE); PHENCYCLIDINE URINE NEGATIVE (NEGATIVE)
[2020-10-08] MEDS ORDERED: LORazepam 2 MG TAB PO STA ×2 (09:21→10:04)
[2020-10-08] MEDS ORDERED: LORazepam 2 MG/ML VIAL IV STA (09:40)
[2020-10-08] MEDS ORDERED: HALOPERIDOL 5MG/ML VIAL (J1630 PER 1) IM STA (09:40)
[2020-10-08 10:20] LABS: HEMATOCRIT 37.6 % (36.0-47.0); HEMOGLOBIN 12.3 g/dl (12.0-15.5); MEAN CORPUSCULAR HEMOGLOBIN 29.1 pg (27.0-33.0); MEAN CORPUSCULAR HGB CONC 32.7 g/dl (32.0-36.5); MEAN CORPUSCULAR VOLUME 89.1 fl (80.0-96.0); PLATELET COUNT, AUTOMATED 412 10^3/uL (150-450); RED BLOOD COUNT 4.22 10^6/uL (4.00-5.40); WHITE BLOOD COUNT 7.6 10^3/uL (4.0-10.0)
[2020-10-08 10:50] LABS: HCG, SERUM QUALITATIVE NEGATIVE (NEGATIVE)
[2020-10-08 11:01] LABS: ACETAMINOPHEN LEVEL < 2.0 UG/ML (10.0-30.0); ALBUMIN 4.3 GM/DL (3.2-5.2); ALT/SGPT 34 U/L (12-78); BILIRUBIN,DIRECT 0.1 MG/DL (0.0-0.2); BILIRUBIN,TOTAL 0.4 MG/DL (0.2-1.0); BLOOD UREA NITROGEN 8 MG/DL (7-18); CALCIUM LEVEL 9.7 MG/DL (8.5-10.1); CARBON DIOXIDE LEVEL 29 MEQ/L (21-32); CHLORIDE LEVEL 106 MEQ/L (98-107); CREATININE FOR GFR 0.54 MG/DL (0.55-1.30); ETHYL ALCOHOL (ETHANOL) < 0.003 % (0.000-0.010); GLOMERULAR FILTRATION RATE > 60.0 (>60); GLUCOSE, FASTING 110 MG/DL (70-100); POTASSIUM SERUM 4.5 MEQ/L (3.5-5.1); SALICYLATE LEVEL 3.1 MG/DL (5.0-30.0); SODIUM LEVEL 138 MEQ/L (136-145); THYROID STIMULATING HORMONE 0.612 uIU/ML (0.358-3.740); TOTAL PROTEIN 7.9 GM/DL (6.4-8.2)
[2020-10-08 12:25] LABS: RSV AMPLIFICATION NEGATIVE (NEGATIVE)
[2020-10-08] MEDS ORDERED: MOM 30ML SUSPENSION UDC PO PRN (13:25)
[2020-10-08] MEDS ORDERED: MAALOX 30 ML SUSP *UDC PO PRN (13:25)
[2020-10-08] MEDS ORDERED: ACETAMINOPHEN TAB 650MG DOSE (2X325MG) PO PRN (13:25)
[2020-10-08] MEDS ORDERED: KEPP10002 PO (13:33)
[2020-10-08] MEDS ORDERED: SUMA25TA3 PO (13:33)
[2020-10-08] MEDS ORDERED: PROAAER10 INH (13:33)
[2020-10-08] MEDS ORDERED: HOME MED LIST COMPLETE! XX SCH (13:35)
[2020-10-08] MEDS: diphenhydrAMINE 25MG CAP PO PRN ×2 (16:08→16:38)
[2020-10-08] MEDS: NICOTINE 21MG/24HR 1 EA TRANSDERMAL TD SCH (16:08)
[2020-10-08] MEDS ORDERED: cloNIDine 0.2 MG TAB PO PRN (16:30)
[2020-10-08] MEDS ORDERED: FLUTICASONE PROP 0.05% NASAL SPRAY 16 GM (FLONASE) NARES PRN (16:30)
[2020-10-08] MEDS ORDERED: ALBUTEROL 90 MCG/ACT 8GM HFA INHALER INH PRN (16:30)
[2020-10-08] MEDS ORDERED: SUMAtriptan SUCCINATE 25 MG TAB PO PRN (16:30)
[2020-10-08] MEDS: haloperidoL 5 MG TAB PO PRN (16:38)
[2020-10-08] MEDS: LORazepam 1 MG TAB PO PRN (16:38)
[2020-10-08] MEDS ORDERED: ChlorproMAZINE 100 MG TABLET PO ONE (17:35)
[2020-10-08] MEDS: CEPHALEXIN 500 MG CAP PO SCH (21:00)
[2020-10-08] MEDS: GABAPENTIN 300 MG CAP PO SCH (21:00)
[2020-10-08] MEDS ORDERED: ChlorproMAZINE 100 MG TABLET PO SCH (21:00)
[2020-10-08] MEDS: levETIRAcetam 250MG TABLET (KEPPRA) PO SCH (21:00)
[2020-10-08] MEDS: traZODone 50 MG TAB PO PRN (21:18)
[2020-10-09 07:17] VITALS: BP 138/80
[2020-10-09] MEDS: CitaloPRAM (CeleXA) 10 MG TABLET PO SCH (09:56)
[2020-10-09] MEDS: CEPHALEXIN 500 MG CAP PO SCH ×2 (09:56→20:11)
[2020-10-09] MEDS: ChlorproMAZINE 100 MG TABLET PO SCH ×2 (09:57→20:11)
[2020-10-09] MEDS: levETIRAcetam 250MG TABLET (KEPPRA) PO SCH ×2 (09:57→20:11)
[2020-10-09] MEDS: GABAPENTIN 300 MG CAP PO SCH ×3 (09:57→20:11)
[2020-10-09] MEDS: NICOTINE 21MG/24HR 1 EA TRANSDERMAL TD SCH (09:58)
--- NOTE | 2020-10-09 13:17 | HPEPDOC ---
[facility] Medical History & Physical Date of Admission Oct 08, 2020 Date of Service: Oct 09, 2020 History and Physical Chief complaint: Who presented to the ER with hallucinations History of present illness: Patient is a 35 year old female who presented to the ER with hallucinations. Patient was admitted to the [facility] under the care of psychiatry. Hospitalist service was consulted for medical screening evaluation. Patient denies any TEMPLE, N/V, change in her chronic abdominal pain, C/D or urinary discomfort. Patient reports some cloudy urine without any vaginal discharge. Patient denies any CP, SOB, or change in her baseline cough. Denies any palpitations. Reports her appetite is normal. Unsure of any change in weight. Past Medical History: Suicidal ideation Depression / Anxiety Polysubstance abuse (IV methamphetamine) Hepatitis C Migraine headaches Seizure disorder Hx of COVID19 (03/2020) Past Surgical History: Hernia repair Allergies: See below Medications: See below Family History: - Mother with a history of lupus - Father with a history of cirrhosis Social History: - Patient reports that she is an active smoker of >20 years at 1-2 PPD. Reports rare alcohol use. Reports previous use of Methamphetamine (last reported 1 month ago) - Denies recent travel or sick contacts - Lives alone; reported homeless - Occupation; unemployed Review of Systems: 10 point review of systems complete, all negative otherwise stated in HPI Physical exam: - Vitals: BP [138/80], HR [72], RR [14], Sat [99%RA], Temp [97.5F] - General: Lying in bed, Speaking in full sentences, AAOx3 - HEENT: NC, AT, PERRLA - CVS: RRR, +S1S2 - Lungs: Fair air entry bilaterally, No appreciable wheezing / rales / rhonchi - Abdomen: Soft, Non-distended, Non-tender - Extremities: No lower extremity edema, No calf tenderness - Neuro: No focal motor or sensory deficit - Skin: No visible rashes Labs: See below Imaging: See below EKG: See below Assessment and Plan: Hallucinations - Prior history of suicidal ideation / Depression / Anxiety - Admitted to [facility] under the care of psychiatry - Managed by psychiatry Reported cloudy urine / Recent trichomonas vaginalis infection - Patient notes she did not receive treatment - Will check GC / Chlamydia / Trichomonas - If positive for trichomonas will start Flagyl Polysubstance abuse - Reported history of IV methamphetamine - Last use was reported 1 month ago Hepatitis C - Will have outpatient follow up with ID Migraine headaches - c/w Sumatriptan Seizure disorder - c/w Keppra Nicotine dependence - c/w Nicotine patch Hx of COVID19 - Positive on 03/2020 - Not hypoxic currently DVT prophylaxis - Will c/w early ambulation Female community pharmacist was present throughout the duration of this history and physical examination Hospitalist service will now sign off; please reconsult as needed. Vital Signs Vital Signs Date Time Temp Pulse Resp B/P (MAP) Pulse Ox O2 Delivery O2 Flow Rate FiO2 10/09/20 07:17 97.5 72 14 138/80 (99) 99 Room Air Home Medications Scheduled Buprenorphine HCl/Naloxone HCl (Buprenorphine-Nalox 8-2Mg Film) 8 Mg-2 Mg Film, 2 FILM SL DAILY Cephalexin (Cephalexin) 500 Mg Capsule, 1 CAP PO BID Chlorpromazine HCl (Chlorpromazine HCl) 100 Mg Tablet, 100 MG PO BID Citalopram Hydrobromide (Citalopram HBr) 10 Mg Tablet, 10 MG PO DAILY Gabapentin (Gabapentin) 300 Mg Capsule, 600 MG PO TID Levetiracetam (Keppra) 1,000 Mg Tablet, 1,000 MG PO BID Scheduled PRN Albuterol Sulfate (Proair Hfa) 8.5 Gm Hfa.aer.ad, 2 PUFF INH Q4H PRN for S HORTNESS OF BREATH Benztropine Mesylate (Benztropine Mesylate) 1 Mg Tablet, 1 MG PO BID PRN for EPS Clonidine HCl (Clonidine HCl) 0.2 Mg Tablet, 0.2 MG PO TID PRN for ANXIETY Fluticasone Propionate (Fluticasone Propionate) 16 Gm [place].susp, 2 SPRAYS NARES DAILY PRN for ALLERGIES Sumatriptan Succinate (Sumatriptan Succinate) 25 Mg Tablet, 25 MG PO ASDIRECTED PRN for MIGRAINE Miscellaneous Medications [Patient Comment] UNABLE TO VERIFY WITH PATIENT - MED LIST OBTAINED FROM LAST DISCHARGE Allergies Coded Allergies: Penicillins (Verified Allergy, Unknown, 06/29/20) dextroamphetamine (Verified Allergy, Unknown, 06/29/20) haloperidol (Verified Allergy, Unknown, 06/29/20) olanzapine (Verified Allergy, Unknown, 06/29/20) sulfamethoxazole (Verified Allergy, Unknown, 06/29/20) trimethoprim (Verified Allergy, Unknown, 06/29/20) ziprasidone (Verified Allergy, Unknown, 06/29/20) JONELLE RUIZ MD Oct 09, 2020 13:17
[2020-10-09] MEDS: traZODone 50 MG TAB PO PRN (20:11)
[2020-10-10] MEDS: CEPHALEXIN 500 MG CAP PO SCH ×2 (08:50→20:12)
[2020-10-10] MEDS: ChlorproMAZINE 100 MG TABLET PO SCH ×2 (08:52→20:12)
[2020-10-10] MEDS: levETIRAcetam 250MG TABLET (KEPPRA) PO SCH ×2 (08:52→20:12)
[2020-10-10] MEDS: CitaloPRAM (CeleXA) 10 MG TABLET PO SCH (08:52)
[2020-10-10] MEDS: GABAPENTIN 300 MG CAP PO SCH ×3 (08:52→20:12)
[2020-10-10] MEDS: NICOTINE 21MG/24HR 1 EA TRANSDERMAL TD SCH (08:53)
[2020-10-10] MEDS: haloperidoL 5 MG TAB PO PRN (10:27)
[2020-10-10] MEDS: BENZTROPINE 1 MG TAB PO PRN ×2 (10:27→20:14)
--- NOTE | 2020-10-10 11:48 | MHHPE ---
[facility] HISTORY AND PHYSICAL DATE OF ADMISSION: 10/08/2020 I was due to see her for an initial evaluation. Staff had called me that she was sedated, felt tired and declined to see me. We will await when she is less sedated and more willing. Meanwhile, we will continue current observations.
[2020-10-10 13:08] LABS: GC DNA AMPLIFICATION NEGATIVE (NEGATIVE)
[2020-10-10] MEDS ORDERED: BUPRENORPHINE/NALOXONE 8-2MG SUBLINGUAL TABLET(SUBOXONE) SL ONE (15:05)
--- NOTE | 2020-10-10 18:12 | MHHPE ---
[facility] HISTORY AND PHYSICAL DATE OF ADMISSION: 10/08/2020 This is an admission as I was due to see her yesterday, but she declined, as she was tired and informed the staff that she was not willing to see me. This is a video assessment initially and later on during the day I will be going to see her. The patient stays in the hospital. She is in the hospital and had come in a couple of days ago. CHIEF COMPLAINT: Feels stressed SUBJECTIVE: She is [id number], has a history of previous hospitalizations, has been here on at least a couple of occasions this year, last admitted here July, please refer to the admission and discharge summary for details related to the reasons for admission. Carries a history and diagnosis of bipolar disorder, polysubstance abuse as well. Her coming to the hospital, had suggests was experiencing visual and auditory hallucinations and some command hallucinations asking her to harm, but unclear to whom. She says has been harassed by family, various members, brother and mother, she hears them even when they are not there, suggests that they follow her or at least their voices do, and tends to point out that they are "real". Does say has been on medications including benztropine, gabapentin she says she takes for aches and pains, "all over", but it should be noted she is not very reliable. Record also indicates has been on buprenorphine. Says takes chlorpromazine, and that she does that regularly, takes 100 mg twice a day and is on Celexa 10 mg daily as well, one Imitrex for migraines. She also takes Keppra for seizures, but she does not know whether she has had any seizures recently. Feels harassed by family members and also has been using heroin, says she sniffed it, uses it she says for pain, and vague on whether she uses any other way, including injectable. Toxicology is negative for opiates, but positive for amphetamines. Has a history of using various substances. Says had multiple hospitalizations, most recently while she was [facility] a month ago; prior to that was at [facility]. PAST PSYCHIATRIC HISTORY AND SUBSTANCE ABUSE HISTORY: Please refer to previous summaries. MEDICAL HISTORY: Has a history of hepatitis C, migraines, seizure disorder, has history of COVID infection March of this year. SOCIAL HISTORY: Please refer to previous summaries. Current social situation unclear. She suggests was staying at mother's place, but that she was asked to leave, at times seems unclear, but says they, mother, brother, other family members have continued to follow her as she can hear them. MEDICATIONS: 1. Buprenorphine/naloxone 2. Cephalexin. 3. chlorpromazine 100 mg twice a day 4. citalopram 10 mg daily 5. gabapentin 600 mg 3 x a day 6. Keppra 1000 mg twice a day 7. Has used benztropine, clonidine and Imitrex as needed. ALLERGIES: There is apparently a long list, which includes PENICILLIN, DEXAMPHETAMINE, HALOPERIDOL, though she received haloperidol during this hospitalization, has been quite agitated, OLANZAPINE, SULFAMETHOXAZOLE, TRIMETHOPRIM, ZIPRASIDONE. MENTAL STATUS EXAMINATION: Fair hygiene, guarded, irritable, more cooperative as the interview proceeded, tangential in thought at times, but mostly coherent. Affect displayed irritability, vague on suicidal thoughts, plans. No homicidal ideas or intents. At presence does not appear to be internally preoccupied, but does seem have delusions, relates to family members. She is alert and oriented. No fluctuation of consciousness. Intellect average at best. Judgment and insight are compromised. ASSESSMENT: 1. Unspecified psychotic disorder. 2. Schizoaffective disorder by history. 3. Consider schizoaffective disorder with bipolar type. 4. Opioid use disorder. 5. Amphetamine use disorder. Has psychotic symptoms, perceptual, as well as delusions, though unclear of the role substance use plays in this, whether that generates the psychotic symptoms and mood fluctuations solely. The possibility for morbidity is high, given her history. PLAN: She was admitted to inpatient psychiatric unit and placed on regular precautions. We are looking to obtaining collateral information, continues her current medication regimen. Wishes for an increase in the gabapentin, will refer that to the hospitalist, as the patient uses this, she says for pain, "all over". She is encouraged to participate in activities in the unit. Will look at obtaining collateral information. Maintain current precautions including elopement precautions. Further recommendations will be made depending on clinical picture. I would suggest reviewing old records as well. I would anticipate a 5 to 7 day stay. I will be going to the hospital to see her face to face and reiterate the history, as well as the assessment and recommendations. On video, it took 45 minutes.
[2020-10-10 18:14] VITALS: BP 121/67
[2020-10-10] MEDS: traZODone 50 MG TAB PO PRN (20:12)
[2020-10-11 06:40] VITALS: BP 104/67
[2020-10-11] MEDS: GABAPENTIN 300 MG CAP PO SCH ×3 (09:08→22:19)
[2020-10-11] MEDS: levETIRAcetam 250MG TABLET (KEPPRA) PO SCH ×2 (09:08→22:19)
[2020-10-11] MEDS: CEPHALEXIN 500 MG CAP PO SCH ×2 (09:08→22:19)
[2020-10-11] MEDS: CitaloPRAM (CeleXA) 10 MG TABLET PO SCH (09:08)
[2020-10-11] MEDS: ChlorproMAZINE 100 MG TABLET PO SCH ×2 (09:08→22:19)
[2020-10-11] MEDS: BUPRENORPHINE/NALOXONE 8-2MG SUBLINGUAL TABLET(SUBOXONE) SL SCH ×2 (09:09→22:19)
[2020-10-11] MEDS: NICOTINE 21MG/24HR 1 EA TRANSDERMAL TD SCH (09:09)
--- NOTE | 2020-10-11 12:06 | MHIPN ---
[facility] PROGRESS NOTE DATE: 10/10/2020 This is an addendum to a note I had dictated earlier today. The patient is seen in person at the inpatient psychiatry unit, and she is seen in the presence of staff. She indicates she has been upset she has not received any Suboxone, says has used it for the better part of the last 2 years, and that she was using it consistently when she was at [facility] recently, says went there in August, in [place], was there for a bit, says which was about 2 weeks, was discharged, and was readmitted a day later, until being discharged about 5 days or so ago. She says she used heroin soon after her discharge, and has not had any Suboxone for about 5 days. In view of the above, would suggest resuming the Suboxone, at a lower dose, for today, and then going to the previous dose, of 8 mg twice a day, from tomorrow onward. Says is due to be seen at [facility] possibly for assessment for methadone instead of the Suboxone. Says she sees Dr. Mao for the Suboxone. I discussed my assessment with her, and the recommendations, as we had, earlier in the day. She appeared calmer overall than when I had seen her earlier in the day.
--- NOTE | 2020-10-11 12:10 | MHIPNPDOC ---
[facility] Progress Note Progress Note DATE OF SERVICE: 10/11/20 HISTORY: Patient is a 35-year single, unemployed/disabled, domiciled, female who is admitted for psychotic symptoms she is reporting that she had vi sual and auditory hallucinations. She has a long history of hospitalizations in [facility], her last admission was in July. Please refer to that admission and discharge summary for details. On this occasion being was experiencing psychotic symptoms stated she was having visual and auditory hallucinations she believes that her family was throwing battery acid and sat her and that she had been harassed by a family. This paranoia has been seen in the patient in her most recent admission. VITAL SIGNS: See below. CURRENT MEDICATIONS: See below. MENTAL STATUS EXAMINATION: Patient is a 35-year single, unemployed/disabled, domiciled, female who is admitted for psychotic symptoms she is reporting that she had visual and auditory hallucinations. Speech: Is spontaneous, normal rate tone and volume. Language skills are intact. Thought processes including: Mostly coherent Thought content: Auditory and visual hallucinations denies suicidal homicidal ideations. Abstract reasoning, and computation: Fair. Description of associa tions: Command hallucinations reporting visual and auditory hallucinations. Description of abnormal or psychotic thoughts: Paranoia, believes her family is after her Judgment: Comperm. Insight: Comperm. Orientation: Alert and oriented. Recent and remote memory: Intact. Attention span and concentration: Poor. Language: Expansive. Fund of knowledge: Below average. Mood: Euthymic. Affect: Congruent with mood. DIAGNOSES: Schizoaffective disorder Opioid use disorder Methamphetamine use disorder ASSESSMENT: Patient continues to report visual and auditory hallucinations. She reports that her family was throwing battery acids at her states that this scared her. She reports that she was being harassed by family members and wanted to get away from it. She continues to have mild command hallucinations today. Patient is alert and oriented and very tangential this morning. MANAGEMENT PLAN: Continue with supportive therapy and medications we will discharge patient when she is stable TIME SPENT: 20 minutes. Vital Signs Vital Signs Date Time Temp Pulse Resp B/P (MAP) Pulse Ox O2 Delivery O2 Flow Rate FiO2 10/11/20 06:40 97.7 77 16 104/67 (79) 10/09/20 07:17 99 Room Air Current Medications Current Medications Medications (Trade) Dose Ordered Sig/Carlos Route PRN Reason Start Time Stop Time Status Last Admin Dose Admin Acetaminophen (Tylenol Tab) 650 mg Q6HP PRN PO HEADACHE or MILD DISCOMFORT 10/08/20 13:25 Al Hydrox/Mg Hydrox/Simethicone (Mylanta) 30 ml Q4HP PRN PO HEARTBURN/INDIGESTION 10/08/20 13:25 Albuterol Sulfate (Proventil, Ventolin Hfa) 2 puff Q4HP PRN INH SHORTNESS OF BREATH 10/08/20 16:30 Benztropine Mesylate (Cogentin) 1 mg BID PRN PO EPS 10/08/20 16:30 10/10/20 20:14 Buprenorphine/ Naloxone (Suboxone 8/2mg) 1 tab BID SL 10/11/20 09:00 10/11/20 09:09 Cephalexin Monohydrate (Keflex) 500 mg BID PO 10/08/20 21:00 10/11/20 09:08 Chlorpromazine HCl (Thorazine) 100 mg BID PO 10/08/20 21:00 10/08/20 17:31 DC Chlorpromazine HCl (Thorazine) 100 mg BID PO 10/09/20 09:00 10/11/20 09:08 Citalopram Hydrobromide (CeleXA) 10 mg DAILY PO 10/09/20 09:00 10/11/20 09:08 Clonidine HCl (Catapres) 0.2 mg TID PRN PO ANXIETY 10/08/20 16:30 Diphenhydramine HCl (Benadryl) 50 mg Q6HP PRN PO ANXIETY/AGITATION 10/08/20 13:25 10/08/20 16:08 Fluticasone Propionate (Flonase 0.05% Nasal [place]) 2 spray DAILYPRN PRN NARES ALLERGIES 10/08/20 16:30 Gabapentin (Neurontin) 600 mg TID PO 10/08/20 21:00 10/11/20 09:08 Haloperidol (Haldol) 5 mg STAT STAT IM 10/08/20 09:40 10/08/20 09:41 Cancel Haloperidol (Haldol) 10 mg Q6HP PRN PO ANXIETY/AGITATION 10/08/20 13:25 10/10/20 10:27 Home Med (Home Med List Complete!) ASDIRECTED XX 10/08/20 13:35 10/08/20 13:39 DC Levetiracetam (Keppra) 1,000 mg BID PO 10/08/20 21:00 10/11/20 09:08 Lorazepam (Ativan) 2 mg Q6HP PRN PO ANXIETY/AGITATION 10/08/20 13:25 10/08/20 16:38 Lorazepam (Ativan) 2 mg STAT STAT IV 10/08/20 09:40 10/08/20 09:41 Cancel Lorazepam (Ativan) 2 mg STAT STAT PO 10/08/20 09:21 10/08/20 09:22 Cancel Lorazepam (Ativan) 2 mg STAT STAT PO 10/08/20 10:04 10/08/20 10:05 DC 10/08/20 10:15 Magnesium Hydroxide (Milk Of Magnesia) 30 ml DAILYPRN PRN PO CONSTIPATION 10/08/20 13:25 Nicotine (Nicoderm Cq 21mg) 1 patch DAILY TD 10/08/20 09:00 10/11/20 09:09 Sumatriptan Succinate (Imitrex) 25 mg ASDIRECTED PRN PO MIGRAINE 10/08/20 16:30 Trazodone HCl (Desyrel) 50 mg QHSP PRN PO INSOMNIA 10/08/20 13:25 10/10/20 20:12 Allergies Coded Allergies: Penicillins (Verified Allergy, Unknown, 06/29/20) dextroamphetamine (Verified Allergy, Unknown, 06/29/20) haloperidol (Verified Allergy, Unknown, 06/29/20) olanzapine (Verified Allergy, Unknown, 06/29/20) sulfamethoxazole (Verified Allergy, Unknown, 06/29/20) trimethoprim (Verified Allergy, Unknown, 06/29/20) ziprasidone (Verified Allergy, Unknown, 06/29/20) MARGARET PELAEZ NP Oct 11, 2020 12:09
[2020-10-11] MEDS: LORazepam 1 MG TAB PO PRN (14:47)
[2020-10-11] MEDS ORDERED: LORazepam 2 MG TAB PO PRN (14:55)
[2020-10-11 17:41] VITALS: BP 128/62
[2020-10-12 06:43] VITALS: BP 123/60
[2020-10-12] MEDS: GABAPENTIN 300 MG CAP PO SCH (08:20)
[2020-10-12] MEDS: CitaloPRAM (CeleXA) 10 MG TABLET PO SCH (08:20)
[2020-10-12] MEDS: ChlorproMAZINE 100 MG TABLET PO SCH (08:20)
[2020-10-12] MEDS: levETIRAcetam 250MG TABLET (KEPPRA) PO SCH (08:21)
[2020-10-12] MEDS: CEPHALEXIN 500 MG CAP PO SCH (08:21)
[2020-10-12] MEDS: NICOTINE 21MG/24HR 1 EA TRANSDERMAL TD SCH (08:21)
[2020-10-12] MEDS: BUPRENORPHINE/NALOXONE 8-2MG SUBLINGUAL TABLET(SUBOXONE) SL SCH (08:24)
[2020-10-12] MEDS ORDERED: CHLO100T30 PO (10:15)
[2020-10-12] MEDS ORDERED: BENZ-52 PO (10:15)
[2020-10-12] MEDS ORDERED: NICO21PAT TD (10:15)
[2020-10-12] MEDS ORDERED: CLON0.2T PO (10:15)
[2020-10-12] MEDS ORDERED: CITA10TA5 PO (10:15)
--- NOTE | 2020-10-12 13:57 | MHDSPDOC ---
[facility] Discharge Summary Discharge Summary DATE OF ADMISSION: Oct 08, 2020 at 13:23 DATE OF DISCHARGE: October 12, 2020 at 1256 DISCHARGE DIAGNOSES: Schizoaffective disorder Opioid use disorder Methamphetamine use disorder REASON FOR ADMISSION: Patient is a 35-year single, unemployed/disabled, domiciled, female who is admitted for psychotic symptoms she is reporting that she had visual and auditory hallucinations. She has a long history of hospitalizations in [facility], her last admission was in July. Please refer to that admission and discharge summary for details. On this occasion being was experiencing psychotic symptoms stated she was having visual and auditory hallucinations she believes that her family was throwing battery acid and that she had been harassed by her family. This paranoia has been observed in other admissions. Patient's urine drug screen in positive for methamphetamines. VITAL SIGNS: See below. CONSULTANTS INVOLVED: See Medical H + P by Hospitalist TREATMENT AND PROGRESS ON THE UNIT: Patient was admitted to the [facility] on a 9.39 legal status he was afforded the following treatment modalities: 1) Individual Therapy 2) Group Therapy 3) Medication Management 4) Milieu Therapy 5) Safe Environment HOSPITAL COURSE: Patient was admitted to [facility] on a 9.39 legal status. Patient was resumed on her home medications. Pt found medications beneficial and tolerated them well. Discussed with patient that she does not currently have a provider in outpatient services that will prescribe the Suboxone. Patient states that she wants Suboxone but in her discharge interview she had reported that she has a history of stealing her mother's Methadone, patient has also admitted to selling her suboxone in the past to get methamphetamines. Mood, anxiety, and intrusive thoughts improved with treatment. Pt attended groups daily during stay. Pts symptoms improved with treatment. On day of discharge he denied depression, anxiety, insomnia, SI/HI, hallucinations, patient delusions. Pt was discharged home with follow-[facility] and [facility]. Pt felt safe for discharge. DISCHARGE ASSESSMENT: In today's interview, patient is alert and oriented, pts dress is appropriately in hospital scrubs. Hygiene and grooming is well-kempt. Smiles on approach and is pleasant and engaged in the interview. Denies depression and anxiety. Denies suicidal and homicidal ideation, planning or intent. Denies and is not observed with michael, psychotic symptoms of obsessions, paranoia, ruminations illogical thoughts, flight of ideas or having poor insight and judgement. She was observed with mild paranoia about her family. Patient has improved mentation, declines further hospitalization on a voluntary status and meets criteria for discharge today. Patient encouraged to stay another day but she declined. MENTAL STATUS EXAMINATION ON DISCHARGE: Patient is a 35-year single, unemployed/disabled, domiciled, female who is admitted for psychotic symptoms she is reporting that she had visual and auditory hallucinations. Speech: Is slow rate, tone and volume Language skills are intact Thought processes including: improved to linear and goal oriented Thought content: denies depression and anxiety. Denies suicidal/homicidal ideation, planning or intent. Abstract reasoning, and computation: fair Description of associations: denies, none observed Description of abnormal or psychotic thoughts: denies, but appears to have mild paranoia about her family Judgment: fair/improved Insight: fair/improved Orientation: alert and oriented to person, place, time and situation Recent and remote memory: intact Attention span and concentration: good Language: expansive Fund of knowledge: average Mood: Euthymic Mood Affect: reactive MEDICATIONS ON DISCHARGE: See Medication Reconciliation PLAN/FOLLOWUP ARRANGEMENTS: Patient is following up with [facility] and [facility] The amount of time spent in the coordination of care for this patient was approximately 25 minutes. ETOH/Disorder Med Rx ETOH/DRUG DISORDER RX: N/A (see discharge note regarding Suboxone) Vital Signs/I&Os Vital Signs Date Time Temp Pulse Resp B/P (MAP) Pulse Ox O2 Delivery O2 Flow Rate FiO2 10/12/20 06:43 97.3 70 16 123/60 (81) 98 Room Air Medications Scheduled Cephalexin (Cephalexin) 500 Mg Capsule, 1 CAP PO BID for 10 Days, #20 Chlorpromazine HCl (Chlorpromazine HCl) 100 Mg Tablet, 100 MG PO BID for Mood, #14 Citalopram Hydrobromide (Citalopram HBr) 10 Mg Tablet, 10 MG PO DAILY for Mood, #7 Gabapentin (Gabapentin) 300 Mg Capsule, 600 MG PO TID, (Reported) Levetiracetam (Keppra) 1,000 Mg Tablet, 1,000 MG PO BID, (Reported) Nicotine (Nicotine Patch) 21 Mg Patch.td24, 1 PATCH TD DAILY for Nicotine withdr awal, #7 Scheduled PRN Albuterol Sulfate (Proair Hfa) 8.5 Gm Hfa.aer.ad, 2 PUFF INH Q4H PRN for SHORTNESS OF BREATH, (Reported) Benztropine Mesylate (Benztropine Mesylate) 1 Mg Tablet, 1 MG PO BID PRN for EPS, #14 Clonidine HCl (Clonidine HCl) 0.2 Mg Tablet, 0.2 MG PO TID PRN for ANXIETY, #21 Fluticasone Propionate (Fluticasone Propionate) 16 Gm [place].susp, 2 SPRAYS NARES DAILY PRN for ALLERGIES, (Reported) Sumatriptan Succinate (Sumatriptan Succinate) 25 Mg Tablet, 25 MG PO ASDIRECTED PRN for MIGRAINE, (Reported) Allergies Coded Allergies: Penicillins (Verified Allergy, Unknown, 06/29/20) dextroamphetamine (Verified Allergy, Unknown, 06/29/20) haloperidol (Verified Allergy, Unknown, 06/29/20) olanzapine (Verified Allergy, Unknown, 06/29/20) sulfamethoxazole (Verified Allergy, Unknown, 06/29/20) trimethoprim (Verified Allergy, Unknown, 06/29/20) ziprasidone (Verified Allergy, Unknown, 06/29/20) MARGARET PELAEZ NP Oct 12, 2020 13:57
== END 2020-10-12 13:40 | disposition home or self-care (01) | DRG 750 ==
LOC: M ED 05:54 → M ED INP 13:23 → M PSY 15:40
PROVIDERS: ADMIT Psychiatry & Neurology Psychiatry; ATTEND Psychiatry & Neurology Psychiatry
DX: F25.9 Schizoaffective disorder, unspecified (principal); G43.909 Migraine, unspecified, not intractable, without status migrainosus; G40.909 Epilepsy, unspecified, not intractable, without status epilepticus; Z86.16 Personal history of COVID-19; B19.20 Unspecified viral hepatitis C without hepatic coma; F17.210 Nicotine dependence, cigarettes, uncomplicated; Z79.899 Other long term (current) drug therapy; Z88.0 Allergy status to penicillin; Z88.1 Allergy status to other antibiotic agents; Z88.2 Allergy status to sulfonamides; Z88.8 Allergy status to other drugs, medicaments and biological substances; F11.10 Opioid abuse, uncomplicated; F15.10 Other stimulant abuse, uncomplicated; Z56.0 Unemployment, unspecified; Z20.822 Contact with and (suspected) exposure to COVID-19; N89.8 Other specified noninflammatory disorders of vagina

== ENCOUNTER 2020-10-17 22:05 | Emergency (ER) | payer MEDICAID ==
[~2020-10-17] VITALS: Ht 154.9 cm; Wt 71.1 kg
[~2020-10-17 22:05] MED LIST changes: +FLUTISP; -FLUTISP NARES
[2020-10-17 22:06] VITALS: BP 118/83
== END 2020-10-17 22:34 | disposition left against medical advice (07) ==
LOC: M ED 22:05
DX: Z53.21 Procedure and treatment not carried out due to patient leaving prior to being seen by health care provider (principal)

== ENCOUNTER 2020-10-19 02:20 | Emergency (ER) | payer MEDICAID ==
[~2020-10-19] VITALS: Ht 160 cm; Wt 72.0 kg
[2020-10-19] MEDS ORDERED: diphenhydrAMINE 50MG/ML VIAL (J1200) IM ONE (02:55)
[2020-10-19] MEDS ORDERED: HALOPERIDOL 5MG/ML VIAL (J1630 PER 1) IM ONE (02:55)
[2020-10-19] MEDS ORDERED: LORazepam 2 MG/ML VIAL IM ONE (02:55)
[2020-10-19 04:34] LABS: RSV AMPLIFICATION NEGATIVE (NEGATIVE)
[2020-10-19 05:21] LABS: HEMATOCRIT 35.7 % (36.0-47.0); HEMOGLOBIN 11.8 g/dl (12.0-15.5); MEAN CORPUSCULAR HEMOGLOBIN 29.5 pg (27.0-33.0); MEAN CORPUSCULAR HGB CONC 33.1 g/dl (32.0-36.5); MEAN CORPUSCULAR VOLUME 89.3 fl (80.0-96.0); PLATELET COUNT, AUTOMATED 266 10^3/uL (150-450); WHITE BLOOD COUNT 8.3 10^3/uL (4.0-10.0)
[2020-10-19] MEDS ORDERED: CHLO100T30 PO (06:24)
[2020-10-19] MEDS ORDERED: CLON0.2T PO (06:24)
[2020-10-19] MEDS ORDERED: BENZ-52 PO (06:24)
[2020-10-19] MEDS ORDERED: CELE10TA PO (06:24)
[2020-10-19] MEDS ORDERED: GABA600T4 PO (06:24)
[2020-10-19] MEDS ORDERED: HOME MED LIST COMPLETE! XX SCH (06:25)
[2020-10-19] MEDS ORDERED: PATIENT COMMENT (06:25)
[2020-10-19 06:30] LABS: ACETAMINOPHEN LEVEL < 2.0 UG/ML (10.0-30.0); ALBUMIN 3.4 GM/DL (3.2-5.2); ALT/SGPT 56 U/L (12-78); BILIRUBIN,DIRECT 0.1 MG/DL (0.0-0.2); BILIRUBIN,TOTAL 0.4 MG/DL (0.2-1.0); BLOOD UREA NITROGEN 17 MG/DL (7-18); CALCIUM LEVEL 8.8 MG/DL (8.5-10.1); CARBON DIOXIDE LEVEL 28 MEQ/L (21-32); CHLORIDE LEVEL 107 MEQ/L (98-107); CREATININE FOR GFR 0.53 MG/DL (0.55-1.30); ETHYL ALCOHOL (ETHANOL) < 0.003 % (0.000-0.010); GLOMERULAR FILTRATION RATE > 60.0 (>60); GLUCOSE, FASTING 81 MG/DL (70-100); POTASSIUM SERUM 4.4 MEQ/L (3.5-5.1); SALICYLATE LEVEL 3.4 MG/DL (5.0-30.0); SODIUM LEVEL 140 MEQ/L (136-145); THYROID STIMULATING HORMONE 0.671 uIU/ML (0.358-3.740); TOTAL PROTEIN 6.5 GM/DL (6.4-8.2)
[2020-10-19 11:00] VITALS: BP 95/50
== END 2020-10-19 11:24 | disposition home or self-care (01) ==
LOC: M ED 02:20
DX: F19.10 Other psychoactive substance abuse, uncomplicated (principal); Z79.899 Other long term (current) drug therapy; Z88.0 Allergy status to penicillin; Z88.2 Allergy status to sulfonamides; Z88.8 Allergy status to other drugs, medicaments and biological substances
CPT/HCPCS: 36415; 80048; 80076; 80143; 82077; 84443; 85027; 87631; 96372; 99285; J1200; J1630; J2060

== ENCOUNTER 2020-10-19 21:08 | Inpatient (IN) | payer MEDICAID ==
[~2020-10-19] VITALS: Ht 152.4 cm; Wt 80.1 kg
[2020-10-19] MEDS ORDERED: HALOPERIDOL 5MG/ML VIAL (J1630 PER 1) IM ONE (21:35)
[2020-10-19] MEDS ORDERED: diphenhydrAMINE 50MG/ML VIAL (J1200) IM ONE (21:35)
[2020-10-19] MEDS ORDERED: LORazepam 2 MG/ML VIAL IM ONE (21:35)
[2020-10-19 21:40] LABS: HEMATOCRIT 38.8 % (36.0-47.0); HEMOGLOBIN 12.4 g/dl (12.0-15.5); MEAN CORPUSCULAR HEMOGLOBIN 29.7 pg (27.0-33.0); MEAN CORPUSCULAR VOLUME 92.8 fl (80.0-96.0); PLATELET COUNT, AUTOMATED 263 10^3/uL (150-450); RED BLOOD COUNT 4.18 10^6/uL (4.00-5.40); WHITE BLOOD COUNT 8.3 10^3/uL (4.0-10.0)
[2020-10-19 22:03] LABS: HCG, SERUM QUALITATIVE NEGATIVE (NEGATIVE)
[2020-10-19 22:12] LABS: ACETAMINOPHEN LEVEL 8.7 UG/ML (10.0-30.0); ALBUMIN 3.8 GM/DL (3.2-5.2); ALT/SGPT 51 U/L (12-78); BILIRUBIN,DIRECT 0.2 MG/DL (0.0-0.2); BILIRUBIN,TOTAL 0.5 MG/DL (0.2-1.0); BLOOD UREA NITROGEN 15 MG/DL (7-18); CALCIUM LEVEL 8.6 MG/DL (8.5-10.1); CARBON DIOXIDE LEVEL 24 MEQ/L (21-32); CHLORIDE LEVEL 108 MEQ/L (98-107); CPK CREATINE PHOSPHOKINASE 664 U/L (26-192); CREATININE FOR GFR 0.77 MG/DL (0.55-1.30); ETHYL ALCOHOL (ETHANOL) < 0.003 % (0.000-0.010); GLOMERULAR FILTRATION RATE > 60.0 (>60); GLUCOSE, FASTING 78 MG/DL (70-100); POTASSIUM SERUM 4.1 MEQ/L (3.5-5.1); SODIUM LEVEL 139 MEQ/L (136-145); THYROID STIMULATING HORMONE 0.525 uIU/ML (0.358-3.740); TOTAL PROTEIN 7.5 GM/DL (6.4-8.2)
[2020-10-20 11:15] LABS: AMPHETAMINES LEVEL URINE POSITIVE (NEGATIVE); BARBITURATES URINE NEGATIVE (NEGATIVE); BENZODIAZEPINES URINE NEGATIVE (NEGATIVE); CANNABINOIDS URINE POSITIVE (NEGATIVE); COCAINE METABOLITE URINE NEGATIVE (NEGATIVE); METHADONE URINE POSITIVE (NEGATIVE); OPIATES URINE POSITIVE (NEGATIVE); PHENCYCLIDINE URINE NEGATIVE (NEGATIVE)
[2020-10-20] MEDS ORDERED: HOME MED LIST COMPLETE! XX SCH (13:05)
[2020-10-20 14:53] LABS: RSV AMPLIFICATION NEGATIVE (NEGATIVE)
[2020-10-20] MEDS ORDERED: MOM 30ML SUSPENSION UDC PO PRN (15:05)
[2020-10-20] MEDS ORDERED: FLUTICASONE PROP 0.05% NASAL SPRAY 16 GM (FLONASE) PRN (15:05)
[2020-10-20] MEDS ORDERED: MAALOX 30 ML SUSP *UDC PO PRN (15:05)
[2020-10-20] MEDS ORDERED: SUMAtriptan SUCCINATE 25 MG TAB PO PRN (15:05)
[2020-10-20] MEDS: GABAPENTIN 300 MG CAP PO SCH ×2 (16:00→21:45)
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
[2020-10-20 17:27] VITALS: BP 118/68
[2020-10-20] MEDS: ChlorproMAZINE 100 MG TABLET PO SCH (21:45)
[2020-10-20] MEDS: levETIRAcetam 250MG TABLET (KEPPRA) PO SCH (21:45)
[2020-10-21 06:47] VITALS: BP 106/51
[2020-10-21] MEDS: NICOTINE 21MG/24HR 1 EA TRANSDERMAL TD SCH (09:34)
[2020-10-21] MEDS: ChlorproMAZINE 100 MG TABLET PO SCH ×2 (09:34→20:45)
[2020-10-21] MEDS: levETIRAcetam 250MG TABLET (KEPPRA) PO SCH ×2 (09:34→20:45)
[2020-10-21] MEDS: GABAPENTIN 300 MG CAP PO SCH ×3 (09:34→20:45)
[2020-10-21] MEDS: CitaloPRAM (CeleXA) 10 MG TABLET PO SCH (09:34)
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
[2020-10-21 17:17] VITALS: BP 110/55
[2020-10-21] MEDS: diphenhydrAMINE 25MG CAP PO PRN (20:45)
[2020-10-21] MEDS: cloNIDine 0.2 MG TAB PO PRN (20:45)
[2020-10-22 05:38] VITALS: BP 106/58
[2020-10-22] MEDS: ChlorproMAZINE 100 MG TABLET PO SCH ×2 (08:36→20:56)
[2020-10-22] MEDS: GABAPENTIN 300 MG CAP PO SCH (08:36)
[2020-10-22] MEDS: levETIRAcetam 250MG TABLET (KEPPRA) PO SCH ×2 (08:36→20:56)
[2020-10-22] MEDS: CitaloPRAM (CeleXA) 10 MG TABLET PO SCH (08:36)
[2020-10-22] MEDS: diphenhydrAMINE 25MG CAP PO PRN (08:37)
[2020-10-22] MEDS: NICOTINE 21MG/24HR 1 EA TRANSDERMAL TD SCH (08:37)
[2020-10-22 08:38] VITALS: BP 116/65
[2020-10-22] MEDS: cloNIDine 0.2 MG TAB PO PRN (08:38)
[2020-10-22] MEDS ORDERED: METH10CO PO (10:30)
[2020-10-22] MEDS: METHADONE 10 MG TAB (S0109) PO SCH (10:34)
[2020-10-22] MEDS: diphenhydrAMINE 50MG CAP PO PRN (15:20)
[2020-10-22] MEDS: LORazepam 1 MG TAB PO PRN (15:20)
[2020-10-22] MEDS: GABAPENTIN 400MG CAP PO SCH ×2 (16:33→20:56)
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
[2020-10-22 18:21] VITALS: BP 106/56
[2020-10-23 06:46] VITALS: BP 113/51
[2020-10-23] MEDS: levETIRAcetam 250MG TABLET (KEPPRA) PO SCH ×2 (08:10→19:30)
[2020-10-23] MEDS: CitaloPRAM (CeleXA) 10 MG TABLET PO SCH (08:10)
[2020-10-23] MEDS: GABAPENTIN 400MG CAP PO SCH ×3 (08:11→19:30)
[2020-10-23] MEDS: ChlorproMAZINE 100 MG TABLET PO SCH ×2 (08:11→19:30)
[2020-10-23] MEDS: NICOTINE 21MG/24HR 1 EA TRANSDERMAL TD SCH (08:11)
[2020-10-23] MEDS: METHADONE 10 MG TAB (S0109) PO SCH (08:11)
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
[2020-10-23 16:23] VITALS: BP 113/59
[2020-10-23] MEDS: LORazepam 1 MG TAB PO PRN (19:30)
[2020-10-23] MEDS: BENZTROPINE 1 MG TAB PO PRN (19:30)
[2020-10-24] MEDS: levETIRAcetam 250MG TABLET (KEPPRA) PO SCH ×2 (09:48→20:02)
[2020-10-24] MEDS: CitaloPRAM (CeleXA) 10 MG TABLET PO SCH (09:48)
[2020-10-24] MEDS: ChlorproMAZINE 100 MG TABLET PO SCH ×2 (09:48→20:02)
[2020-10-24] MEDS: GABAPENTIN 400MG CAP PO SCH ×3 (09:48→20:02)
[2020-10-24] MEDS: METHADONE 10 MG TAB (S0109) PO SCH (09:49)
[2020-10-24] MEDS: NICOTINE 21MG/24HR 1 EA TRANSDERMAL TD SCH (09:49)
[2020-10-24 19:06] VITALS: BP 92/44
[2020-10-24] MEDS: diphenhydrAMINE 50MG CAP PO PRN (20:02)
[2020-10-24] MEDS: LORazepam 1 MG TAB PO PRN (20:02)
[2020-10-25 06:20] VITALS: BP 106/63
[2020-10-25] MEDS: ChlorproMAZINE 100 MG TABLET PO SCH ×2 (09:20→20:36)
[2020-10-25] MEDS: CitaloPRAM (CeleXA) 10 MG TABLET PO SCH (09:20)
[2020-10-25] MEDS: GABAPENTIN 400MG CAP PO SCH ×3 (09:20→20:36)
[2020-10-25] MEDS: METHADONE 10 MG TAB (S0109) PO SCH (09:20)
[2020-10-25] MEDS: levETIRAcetam 250MG TABLET (KEPPRA) PO SCH ×2 (09:20→20:36)
[2020-10-25] MEDS: NICOTINE 21MG/24HR 1 EA TRANSDERMAL TD SCH (09:20)
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
[2020-10-25 16:33] VITALS: BP 100/66
[2020-10-25] MEDS: LORazepam 1 MG TAB PO PRN (18:35)
[2020-10-25] MEDS: diphenhydrAMINE 50MG CAP PO PRN (22:50)
[2020-10-26] MEDS: CitaloPRAM (CeleXA) 20 MG TAB PO SCH (09:16)
[2020-10-26] MEDS: levETIRAcetam 250MG TABLET (KEPPRA) PO SCH ×2 (09:16→20:33)
[2020-10-26] MEDS: NICOTINE 21MG/24HR 1 EA TRANSDERMAL TD SCH (09:16)
[2020-10-26] MEDS: ChlorproMAZINE 100 MG TABLET PO SCH ×2 (09:16→20:33)
[2020-10-26] MEDS: GABAPENTIN 400MG CAP PO SCH ×3 (09:16→20:33)
[2020-10-26] MEDS: METHADONE 10 MG TAB (S0109) PO SCH (09:16)
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
[2020-10-26 19:00] VITALS: BP 122/57
[2020-10-26] MEDS: diphenhydrAMINE 50MG CAP PO PRN (20:36)
[2020-10-27] MEDS: chlorproMAZINE 25 MG TABLET PO PRN (00:08)
[2020-10-27 06:11] VITALS: BP 115/58
[2020-10-27] MEDS: NICOTINE 21MG/24HR 1 EA TRANSDERMAL TD SCH (08:47)
[2020-10-27] MEDS: levETIRAcetam 250MG TABLET (KEPPRA) PO SCH ×2 (08:47→20:51)
[2020-10-27] MEDS: ChlorproMAZINE 100 MG TABLET PO SCH ×2 (08:47→20:51)
[2020-10-27] MEDS: METHADONE 10 MG TAB (S0109) PO SCH (08:47)
[2020-10-27] MEDS: GABAPENTIN 400MG CAP PO SCH ×3 (08:48→20:51)
[2020-10-27] MEDS: CitaloPRAM (CeleXA) 20 MG TAB PO SCH (08:48)
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
[2020-10-27 16:11] VITALS: BP 100/58
[2020-10-27] MEDS: diphenhydrAMINE 50MG CAP PO PRN (20:51)
[2020-10-27] MEDS: ACETAMINOPHEN TAB 650MG DOSE (2X325MG) PO PRN (21:44)
[2020-10-28 06:44] VITALS: BP 107/57
[2020-10-28] MEDS: levETIRAcetam 250MG TABLET (KEPPRA) PO SCH ×2 (08:13→21:05)
[2020-10-28] MEDS: GABAPENTIN 400MG CAP PO SCH ×3 (08:13→21:05)
[2020-10-28] MEDS: NICOTINE 21MG/24HR 1 EA TRANSDERMAL TD SCH (08:13)
[2020-10-28] MEDS: METHADONE 10 MG TAB (S0109) PO SCH (08:13)
[2020-10-28] MEDS: CitaloPRAM (CeleXA) 20 MG TAB PO SCH (08:13)
[2020-10-28] MEDS: ChlorproMAZINE 100 MG TABLET PO SCH ×2 (08:13→21:05)
[2020-10-28] MEDS: ALBUTEROL 90 MCG/ACT 8GM HFA INHALER INH PRN ×2 (08:17→15:57)
[2020-10-28] MEDS: diphenhydrAMINE 50MG CAP PO PRN ×2 (09:23→21:05)
[2020-10-28] MEDS: ACETAMINOPHEN TAB 650MG DOSE (2X325MG) PO PRN (09:24)
[2020-10-28] MEDS: BENZTROPINE 1 MG TAB PO PRN ×2 (10:30→21:05)
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
[2020-10-28 18:06] VITALS: BP 136/75
[2020-10-28] MEDS: zolPIDEM TARTRATE 5 MG TAB PO SCH (21:04)
[2020-10-29 07:48] VITALS: BP 109/59
[2020-10-29] MEDS: levETIRAcetam 250MG TABLET (KEPPRA) PO SCH ×2 (09:04→20:14)
[2020-10-29] MEDS: ChlorproMAZINE 100 MG TABLET PO SCH ×2 (09:04→20:14)
[2020-10-29] MEDS: METHADONE 10 MG TAB (S0109) PO SCH (09:04)
[2020-10-29] MEDS: NICOTINE 21MG/24HR 1 EA TRANSDERMAL TD SCH (09:04)
[2020-10-29] MEDS: CitaloPRAM (CeleXA) 20 MG TAB PO SCH (09:04)
[2020-10-29] MEDS: GABAPENTIN 400MG CAP PO SCH ×3 (09:04→20:14)
[2020-10-29] MEDS: ALBUTEROL 90 MCG/ACT 8GM HFA INHALER INH PRN ×2 (09:27→20:13)
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
[2020-10-29] MEDS: diphenhydrAMINE 50MG CAP PO PRN (15:24)
[2020-10-29 16:07] VITALS: BP 109/67
[2020-10-29] MEDS: PILL CUTTER 1 EACH XX PRN (20:14)
[2020-10-29] MEDS: zolPIDEM TARTRATE 5 MG TAB PO SCH (20:14)
[2020-10-29] MEDS: ACETAMINOPHEN TAB 650MG DOSE (2X325MG) PO PRN (20:19)
[2020-10-29] MEDS: chlorproMAZINE 25 MG TABLET PO PRN (22:23)
[2020-10-30 06:16] VITALS: BP 95/50
[2020-10-30] MEDS: ACETAMINOPHEN TAB 650MG DOSE (2X325MG) PO PRN ×2 (07:32→20:41)
[2020-10-30] MEDS: NICOTINE 21MG/24HR 1 EA TRANSDERMAL TD SCH (10:07)
[2020-10-30] MEDS: GABAPENTIN 400MG CAP PO SCH ×3 (10:07→20:38)
[2020-10-30] MEDS: METHADONE 10 MG TAB (S0109) PO SCH (10:08)
[2020-10-30] MEDS: levETIRAcetam 250MG TABLET (KEPPRA) PO SCH ×2 (10:08→20:38)
[2020-10-30] MEDS: CitaloPRAM (CeleXA) 20 MG TAB PO SCH (10:08)
[2020-10-30] MEDS: ChlorproMAZINE 100 MG TABLET PO SCH ×2 (10:08→20:38)
[2020-10-30] MEDS: BENZTROPINE 1 MG TAB PO PRN (10:10)
[2020-10-30 13:48] LABS: BASO % 0.6 % (0.0-1.0); EOS # 0.3 10^3/uL (0.0-0.5); EOS % 5.1 % (0.0-3.0); HEMATOCRIT 32.8 % (36.0-47.0); HEMOGLOBIN 10.4 g/dl (12.0-15.5); LYMPH % 39.1 % (24.0-44.0); MEAN CORPUSCULAR HEMOGLOBIN 29.4 pg (27.0-33.0); MEAN CORPUSCULAR HGB CONC 31.7 g/dl (32.0-36.5); MEAN CORPUSCULAR VOLUME 92.7 fl (80.0-96.0); MONO # 0.7 10^3/uL (0.0-0.8); MONO % 13.5 % (2.0-8.0); NEUTROPHILS # 2.1 10^3/uL (1.5-8.5); NEUTROPHILS % 41.5 % (36.0-66.0); PLATELET COUNT, AUTOMATED 218 10^3/uL (150-450); RED BLOOD COUNT 3.54 10^6/uL (4.00-5.40); WHITE BLOOD COUNT 5.1 10^3/uL (4.0-10.0)
[2020-10-30] MEDS ORDERED: IBUPROFEN 400MG TAB PO PRN (14:00)
[2020-10-30 14:13] LABS: ALBUMIN 2.8 GM/DL (3.2-5.2); ALT/SGPT 114 U/L (12-78); AMYLASE 25 U/L (25-115); BILIRUBIN,TOTAL 0.2 MG/DL (0.2-1.0); BLOOD UREA NITROGEN 12 MG/DL (7-18); C REACTIVE PROTEIN QUANTITATIV 0.99 MG/DL (0.00-0.30); CALCIUM LEVEL 8.7 MG/DL (8.5-10.1); CARBON DIOXIDE LEVEL 30 MEQ/L (21-32); CHLORIDE LEVEL 107 MEQ/L (98-107); CREATININE FOR GFR 0.53 MG/DL (0.55-1.30); GLOMERULAR FILTRATION RATE > 60.0 (>60); GLUCOSE, FASTING 109 MG/DL (70-100); LIPASE 43 U/L (73-393); POTASSIUM SERUM 4.5 MEQ/L (3.5-5.1); SODIUM LEVEL 139 MEQ/L (136-145); TOTAL PROTEIN 5.8 GM/DL (6.4-8.2)
[2020-10-30 14:18] LABS: ERYTHROCYTE SEDIMENTATION RATE 17 mm/hr (0-20)
[2020-10-30] MEDS ORDERED: ISOVUE-370 76% 100ML VIAL As Ordered ONE (15:05)
[2020-10-30] MEDS ORDERED: FOSFOMYCIN TROMETHAMINE 3 GM POWDER PACKET (MONUROL) PO ONE (16:00)
[2020-10-30] MEDS ORDERED: MOM 30ML SUSPENSION UDC PO PRN (16:05)
[2020-10-30] MEDS ORDERED: MIRALAX *UNIT DOSE* 17GM PACKET PO PRN (16:05)
[2020-10-30] MEDS ORDERED: SENOKOT S TAB PO PRN (16:05)
[2020-10-30 16:13] VITALS: BP 100/50
--- NOTE | 2020-10-30 16:42 | REP ---
INDICATION: abd pain. COMPARISON: None. TECHNIQUE: Imaging protocol: Computed tomography of the abdomen and pelvis without IV contrast. Contiguous 3 mm thick axial projection images were obtained through the abdomen and pelvis. 2D sagittal and coronal reconstructions were performed. Radiation optimization: All CT scans at this facility use at least one of these dose optimization techniques: automated exposure control; mA and/or kV adjustment per patient size (includes targeted exams where dose is matched to clinical indication); or iterative reconstruction. FINDINGS: Heart and lung bases: The lung bases are clear. There are no pleural effusions. The heart size is normal. There is no pericardial effusion. Liver: The liver appears enlarged in greatest transverse dimension, measuring 26.1 cm. Gallbladder: The gallbladder is partially evacuated. Spleen: Mildly enlarged measuring 13.2 cm in pole to pole length. Pancreas: Normal unenhanced appearance. Adrenal glands: Normal unenhanced appearance. Kidneys/bladder: Normal unenhanced appearance. Pelvic structures: The uterus has a normal unenhanced appearance. The ovaries are not well demonstrated. There is a physiologic amount of free fluid in the pelvis. There are multiple reactive external iliac and inguinal lymph nodes bilaterally. GI tract: There is significant stool throughout the colon. There is a normal appendix demonstrated. Abdominal wall and mesentery: Apparent umbilical hernia repair. There is a 1.7 cm in diameter right inguinal hernia containing normal fat. There is no mesenteric or retroperitoneal lymphadenopathy. There is a calcified injection granuloma in the left buttock. Abdominal aorta and vascular structures: Normal unenhanced appearance. Bony structures: The lumbosacral spine and pelvis are unremarkable. The SI joints and hips are normal. IMPRESSION: 1. Severe constipation. 2. Mild splenomegaly. 3. Hepatomegaly. 4. Apparent umbilical hernia repair. There is a right inguinal hernia containing normal fat. 5. Free fluid in the pelvis consistent with recent ovulation. <Electronically signed by Jose Henson > 10/30/20 [id number]
--- NOTE | 2020-10-30 17:19 | IPNPDOC ---
Date Seen The patient was seen on 10/30/20. Progress Note SUBJECTIVE: c/o suprapubic abd pain 5/10 scale w dysuria,urgency, w/o frequency,flank pain/fever/chills/n/v/d, or malodorous cloudy urine. also c/o vaginal pruritus and white discharge. denies hematuria or fishy vaginal odor OBJECTIVE PHYSICAL EXAMINATION: VITAL SIGNS: Please see below. GENERAL: no distress HEENT: moist mm CARDIOVASCULAR: s1s2 rrr RESPIRATORY: ctab ABDOMINAL: +bs no cvat soft nt obese EXTREMITIES: no c/c/e LABORATORY DATA, IMAGING STUDIES, MICROBIOLOGY: Please see below. ASSESSMENT: 35 y/o w suprapubic abd pain vaginitis h/o trichomonas UTI constipation abn lft's PLAN: check wet mount for trichomonas, gonorrhea/chlamydia in urine cx fosfomycin x 1 for uti. pt has pcn/sulfa allergy and on psych meds w possible qt prolongation if given quinolones ct abd pelvis: constipation, reviewed by general surgeon vehicle monitor technician, Dr. Ambrocio, recommended bowel regimen encourage ambulation and increased up to 3liter liquid intake and high fiber diet transaminitis-check hepatitis profile and check autoimmune hepatitis panel. VS, I&O, 24H, Fishbone Vital Signs/I&O Vital Signs Date Time Temp Pulse Resp B/P (MAP) Pulse Ox O2 Delivery O2 Flow Rate FiO2 10/30/20 16:13 97.4 89 20 100/50 (67) 100 Room Air Laboratory Data 24H LABS Laboratory Tests 2 10/30/20 13:22: Immature Granulocyte % (Auto) 0.2, Neutrophils (%) (Auto) 41.5, Lymphocytes (%) (Auto) 39.1, Monocytes (%) (Auto) 13.5H, Eosinophils (%) (Auto) 5.1H, Basophils (%) (Auto) 0.6, Neutrophils # (Auto) 2.1, Lymphocytes # (Auto) 2.0, Monocytes # (Auto) 0.7, Eosinophils # (Auto) 0.3, Basophils # (Auto) 0.0, Nucleated Red Blood Cells % (auto) 0.0, Erythrocyte Sedimentation Rate 17, Anion Gap 2L, Glome rular Filtration Rate > 60.0, Lactic Acid Level 1.2, Calcium Level 8.7, Total Bilirubin 0.2, Aspartate Amino Transf (AST/SGOT) 91H, Alanine Aminotransferase (ALT/SGPT) 114H, Alkaline Phosphatase 81, C-Reactive Protein, Quantitative 0.99H, Total Protein 5.8L, Albumin 2.8L, Albumin/Globulin Ratio 0.9L, Amylase Level 25, Lipase 43L 10/30/20 14:11: Urine Color YELLOW, Urine Appearance TURBIDH, Urine pH 7.0, Urine Specific Louise 1.014, Urine Protein 1+H, Urine Glucose (UA) NEGATIVE, Urine Ketones NEGATIVE, Urine Blood NEGATIVE, Urine Nitrite NEGATIVE, Urine Bilirubin NEGATIVE, Urine Urobilinogen 0.2, Urine Leukocyte Esterase 3+H, Urine WBC (Auto) 11H, Urine RBC (Auto) 23H, Urine Hyaline Casts (Auto) 0, Urine Bacteria (Auto) 1+H, Urine Squamous Epithelial Cells 61, Urine Sperm (Auto) CBC/BMP Laboratory Tests 10/30/20 13:22 Microbiology Microbiology 10/30/20 Urine Culture, Received Pending AGUS PINA MD Oct 30, 2020 17:19
[2020-10-30] MEDS: metroNIDAZOLE (FLAGYL) 500MG TABLET PO SCH (18:01)
[2020-10-30] MEDS: diphenhydrAMINE 50MG CAP PO PRN (20:38)
[2020-10-30] MEDS: zolPIDEM TARTRATE 5 MG TAB PO SCH (20:38)
[2020-10-30] MEDS: PILL CUTTER 1 EACH XX PRN (20:39)
[2020-10-30] MEDS: ALBUTEROL 90 MCG/ACT 8GM HFA INHALER INH PRN (20:41)
[2020-10-30 20:46] LABS: GC DNA AMPLIFICATION NEGATIVE (NEGATIVE)
[2020-10-30] MEDS: chlorproMAZINE 25 MG TABLET PO PRN (22:03)
[2020-10-31] MEDS: metroNIDAZOLE (FLAGYL) 500MG TABLET PO SCH ×2 (05:08→17:15)
[2020-10-31 06:13] VITALS: BP 102/59
[2020-10-31] MEDS: NICOTINE 21MG/24HR 1 EA TRANSDERMAL TD SCH (08:17)
[2020-10-31] MEDS: ChlorproMAZINE 100 MG TABLET PO SCH ×2 (08:18→21:26)
[2020-10-31] MEDS: METHADONE 10 MG TAB (S0109) PO SCH (08:18)
[2020-10-31] MEDS: levETIRAcetam 250MG TABLET (KEPPRA) PO SCH ×2 (08:18→21:26)
[2020-10-31] MEDS: CitaloPRAM (CeleXA) 20 MG TAB PO SCH (08:18)
[2020-10-31] MEDS: GABAPENTIN 400MG CAP PO SCH ×3 (08:18→21:26)
[2020-10-31] MEDS: ACETAMINOPHEN TAB 650MG DOSE (2X325MG) PO PRN ×2 (08:18→15:19)
[2020-10-31] MEDS: ALBUTEROL 90 MCG/ACT 8GM HFA INHALER INH PRN ×2 (15:18→21:26)
[2020-10-31 16:43] VITALS: BP 104/59
[2020-10-31] MEDS: zolPIDEM TARTRATE 5 MG TAB PO SCH (21:26)
[2020-10-31] MEDS: diphenhydrAMINE 50MG CAP PO PRN (21:27)
[2020-11-01] MEDS: metroNIDAZOLE (FLAGYL) 500MG TABLET PO SCH ×2 (05:41→18:01)
[2020-11-01 06:24] VITALS: BP 120/69
[2020-11-01] MEDS: ALBUTEROL 90 MCG/ACT 8GM HFA INHALER INH PRN (08:37)
[2020-11-01] MEDS: levETIRAcetam 250MG TABLET (KEPPRA) PO SCH ×2 (08:37→20:31)
[2020-11-01] MEDS: GABAPENTIN 400MG CAP PO SCH ×3 (08:38→20:31)
[2020-11-01] MEDS: CitaloPRAM (CeleXA) 20 MG TAB PO SCH (08:38)
[2020-11-01] MEDS: ChlorproMAZINE 100 MG TABLET PO SCH ×2 (08:38→20:30)
[2020-11-01] MEDS: NICOTINE 21MG/24HR 1 EA TRANSDERMAL TD SCH (08:39)
[2020-11-01] MEDS: METHADONE 10 MG TAB (S0109) PO SCH (08:39)
[2020-11-01 10:21] LABS: HEPATITIS B SURFACE ANTIGEN NEGATIVE (NEGATIVE)
[2020-11-01 10:49] LABS: HEPATITIS B CORE ANTIBODY IGM NEGATIVE (NEGATIVE)
[2020-11-01 10:51] LABS: HEPATITIS A ANTIBODY IGM NEGATIVE (NEGATIVE)
[2020-11-01 11:00] LABS: HEPATITIS C VIRUS ABY INDEX > 11.0 INDEX (<0.8)
[2020-11-01 17:16] VITALS: BP 98/55
[2020-11-01] MEDS: diphenhydrAMINE 50MG CAP PO PRN (18:19)
[2020-11-01] MEDS: zolPIDEM TARTRATE 5 MG TAB PO SCH (20:31)
[2020-11-02] MEDS: metroNIDAZOLE (FLAGYL) 500MG TABLET PO SCH (05:56)
[2020-11-02 06:46] VITALS: BP 114/53
[2020-11-02 07:06] VITALS: BP 114/53
[2020-11-02] MEDS: ChlorproMAZINE 100 MG TABLET PO SCH (08:21)
[2020-11-02] MEDS: CitaloPRAM (CeleXA) 20 MG TAB PO SCH (08:21)
[2020-11-02] MEDS: GABAPENTIN 400MG CAP PO SCH (08:22)
[2020-11-02] MEDS: levETIRAcetam 250MG TABLET (KEPPRA) PO SCH (08:22)
[2020-11-02] MEDS: METHADONE 10 MG TAB (S0109) PO SCH (09:00)
[2020-11-02] MEDS: NICOTINE 21MG/24HR 1 EA TRANSDERMAL TD SCH (09:00)
[2020-11-02] MEDS ORDERED: BENZ-52 PO (09:07)
[2020-11-02] MEDS ORDERED: CLON0.2T PO (09:07)
[2020-11-02] MEDS ORDERED: GABA800T4 PO (09:07)
[2020-11-02] MEDS ORDERED: FLUTISP (09:07)
[2020-11-02] MEDS ORDERED: KEPP10002 PO (09:07)
[2020-11-02] MEDS ORDERED: SENN-52 PO (09:07)
[2020-11-02] MEDS ORDERED: SUMA25TA3 PO (09:07)
[2020-11-02] MEDS ORDERED: NICO21PAT TD (09:07)
[2020-11-02] MEDS ORDERED: CHLO100T30 PO (09:07)
[2020-11-02] MEDS ORDERED: MIRA1POW3 PO (09:07)
[2020-11-02] MEDS ORDERED: CELE20TA PO (09:07)
[2020-11-02] MEDS ORDERED: PROAAER10 INH (09:11)
[2020-11-02] MEDS ORDERED: FLAG500T PO (09:11)
[2020-11-02] MEDS: ALBUTEROL 90 MCG/ACT 8GM HFA INHALER INH PRN (10:41)
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
[2020-11-04 09:09] LABS: CHLAMYDIA PHARYNGEAL APTIMA Negative (Negative); GC PHARYNGEAL APTIMA Negative (Negative)
== END 2020-11-02 11:59 | disposition home or self-care (01) | DRG 750 ==
LOC: M ED 21:08 → M ED INP 10-20 15:03 → M PSY 10-20 17:08
PROVIDERS: ADMIT Psychiatry & Neurology Psychiatry; ATTEND Psychiatry & Neurology Psychiatry
DX: F25.0 Schizoaffective disorder, bipolar type (principal); Z59.0 Homelessness; N39.0 Urinary tract infection, site not specified; F43.10 Post-traumatic stress disorder, unspecified; F15.10 Other stimulant abuse, uncomplicated; K59.00 Constipation, unspecified; N76.0 Acute vaginitis; F11.10 Opioid abuse, uncomplicated; R94.5 Abnormal results of liver function studies; Z88.2 Allergy status to sulfonamides; Z79.899 Other long term (current) drug therapy

== ENCOUNTER 2020-11-03 23:53 | Emergency (ER) | payer MEDICAID ==
[~2020-11-03] VITALS: Ht 154.9 cm; Wt 75.2 kg
[~2020-11-03 23:53] MED LIST changes: +FLAG500T PO; +GABA800T4 PO; +METH10CO PO; +MIRA1POW3 PO; +SENN-52 PO
[2020-11-03 23:54] VITALS: BP 115/64
== END 2020-11-04 08:05 | disposition left against medical advice (07) ==
LOC: M ED 23:53
DX: F19.10 Other psychoactive substance abuse, uncomplicated (principal); Z53.9 Procedure and treatment not carried out, unspecified reason; F32.9 Major depressive disorder, single episode, unspecified; G43.909 Migraine, unspecified, not intractable, without status migrainosus; Z86.19 Personal history of other infectious and parasitic diseases; F17.200 Nicotine dependence, unspecified, uncomplicated; Z79.899 Other long term (current) drug therapy; Z88.0 Allergy status to penicillin; Z88.8 Allergy status to other drugs, medicaments and biological substances; Z88.2 Allergy status to sulfonamides

== ENCOUNTER 2020-11-05 23:00 | Emergency (ER) | payer MEDICAID ==
[~2020-11-05] VITALS: Ht 157.5 cm; Wt 70.5 kg
[2020-11-05] MEDS ORDERED: diphenhydrAMINE 50MG/ML VIAL (J1200) IM ONE (23:30)
[2020-11-05] MEDS ORDERED: HALOPERIDOL 5MG/ML VIAL (J1630 PER 1) IM ONE (23:30)
[2020-11-05] MEDS ORDERED: LORazepam 2 MG/ML VIAL IM ONE (23:30)
[2020-11-05] MEDS ORDERED: ACETAMINOPHEN TAB 650MG DOSE (2X325MG) PO ONE (23:45)
[2020-11-05] MEDS ORDERED: LORazepam 2 MG TAB PO STA (23:46)
[2020-11-05] MEDS ORDERED: diphenhydrAMINE 50MG CAP PO ONE (23:50)
[2020-11-06] MEDS ORDERED: GI COCKTAIL 50ML BTL(HYOSCYAMINE/MAALOX/LIDOCAINE VISCOUS)(1:3:1) PO ONE (00:50)
[2020-11-07] MEDS ORDERED: CLON0.2T PO (04:29)
[2020-11-07] MEDS ORDERED: NICO1DIS12 TOP (04:38)
[2020-11-07] MEDS ORDERED: SUMA25TA3 PO (04:38)
[2020-11-07] MEDS ORDERED: ALBU8.5H INH (04:38)
[2020-11-07] MEDS ORDERED: CITA20TA6 PO (04:38)
[2020-11-07] MEDS ORDERED: CHLO100T30 PO (04:38)
[2020-11-07] MEDS ORDERED: FLUT15.820 NARES (04:38)
[2020-11-07] MEDS ORDERED: BENZ-52 PO (04:38)
[2020-11-07] MEDS ORDERED: SENN-23 PO (04:41)
[2020-11-07] MEDS ORDERED: KEPP10002 PO (04:41)
[2020-11-07] MEDS ORDERED: GABA800T4 PO (04:41)
[2020-11-07] MEDS ORDERED: MED REC COMMENT (04:43)
== END 2020-11-06 07:37 | disposition home or self-care (01) ==
LOC: M ED 23:00
DX: F15.20 Other stimulant dependence, uncomplicated (principal); F32.9 Major depressive disorder, single episode, unspecified; G43.909 Migraine, unspecified, not intractable, without status migrainosus; F17.200 Nicotine dependence, unspecified, uncomplicated; Z88.0 Allergy status to penicillin; Z88.2 Allergy status to sulfonamides; Z88.8 Allergy status to other drugs, medicaments and biological substances; Z79.899 Other long term (current) drug therapy

== ENCOUNTER 2020-11-06 18:26 | Inpatient (IN) | payer MEDICAID ==
[~2020-11-06] VITALS: Ht 152.4 cm; Wt 80.1 kg
[~2020-11-06 18:26] MED LIST changes: -CITA10TA5 PO; +CITA10TA7 PO; +CLIN-250; +CLIN-250 PO; -CLIN300C6; -CLIN300C6 PO; +DOXY-443 PO; -DOXY1CAP62 PO; -IBUP200T45 PO; +IBUP200T46 PO; -LATU80TA; +LATU80TA2
[2020-11-06] MEDS ORDERED: LORazepam 2 MG/ML VIAL IM STA (20:28)
[2020-11-06 21:20] LABS: HEMATOCRIT 37.5 % (36.0-47.0); HEMOGLOBIN 12.2 g/dl (12.0-15.5); MEAN CORPUSCULAR HGB CONC 32.5 g/dl (32.0-36.5); MEAN CORPUSCULAR VOLUME 92.1 fl (80.0-96.0); PLATELET COUNT, AUTOMATED 377 10^3/uL (150-450); RED BLOOD COUNT 4.07 10^6/uL (4.00-5.40); WHITE BLOOD COUNT 9.3 10^3/uL (4.0-10.0)
[2020-11-06 21:46] LABS: AMPHETAMINES LEVEL URINE NEGATIVE (NEGATIVE); BARBITURATES URINE NEGATIVE (NEGATIVE); BENZODIAZEPINES URINE NEGATIVE (NEGATIVE); CANNABINOIDS URINE NEGATIVE (NEGATIVE); COCAINE METABOLITE URINE NEGATIVE (NEGATIVE); METHADONE URINE NEGATIVE (NEGATIVE); OPIATES URINE NEGATIVE (NEGATIVE); PHENCYCLIDINE URINE NEGATIVE (NEGATIVE)
[2020-11-06 21:59] LABS: ACETAMINOPHEN LEVEL < 2.0 UG/ML (10.0-30.0); ALBUMIN 4.4 GM/DL (3.2-5.2); ALT/SGPT 79 U/L (12-78); BILIRUBIN,DIRECT < 0.1 MG/DL (0.0-0.2); BILIRUBIN,TOTAL 0.3 MG/DL (0.2-1.0); BLOOD UREA NITROGEN 16 MG/DL (7-18); CARBON DIOXIDE LEVEL 26 MEQ/L (21-32); CHLORIDE LEVEL 102 MEQ/L (98-107); CREATININE FOR GFR 0.89 MG/DL (0.55-1.30); ETHYL ALCOHOL (ETHANOL) < 0.003 % (0.000-0.010); GLOMERULAR FILTRATION RATE > 60.0 (>60); GLUCOSE, FASTING 91 MG/DL (70-100); POTASSIUM SERUM 4.8 MEQ/L (3.5-5.1); SALICYLATE LEVEL 2.5 MG/DL (5.0-30.0); SODIUM LEVEL 136 MEQ/L (136-145); TOTAL PROTEIN 8.1 GM/DL (6.4-8.2)
[2020-11-07] MEDS ORDERED: CLON0.2T PO (04:29)
[2020-11-07] MEDS ORDERED: FLUT15.820 NARES (04:38)
[2020-11-07] MEDS ORDERED: ALBU8.5H INH (04:38)
[2020-11-07] MEDS ORDERED: BENZ-52 PO (04:38)
[2020-11-07] MEDS ORDERED: CITA20TA6 PO (04:38)
[2020-11-07] MEDS ORDERED: NICO1DIS12 TOP (04:38)
[2020-11-07] MEDS ORDERED: CHLO100T30 PO (04:38)
[2020-11-07] MEDS ORDERED: SUMA25TA3 PO (04:38)
[2020-11-07] MEDS ORDERED: KEPP10002 PO (04:41)
[2020-11-07] MEDS ORDERED: SENN-23 PO (04:41)
[2020-11-07] MEDS ORDERED: GABA800T4 PO (04:41)
[2020-11-07] MEDS ORDERED: MED REC COMMENT (04:43)
[2020-11-07] MEDS ORDERED: HOME MED LIST COMPLETE! XX SCH (04:45)
[2020-11-07] MEDS ORDERED: LORazepam 2 MG/ML VIAL IM ONE (04:50)
[2020-11-07] MEDS ORDERED: HALOPERIDOL 5MG/ML VIAL (J1630 PER 1) IM ONE (04:50)
[2020-11-07] MEDS ORDERED: diphenhydrAMINE 50MG/ML VIAL (J1200) IM ONE (04:50)
[2020-11-07] MEDS ORDERED: traZODone 50 MG TAB PO PRN (04:55)
[2020-11-07] MEDS ORDERED: MAALOX 30 ML SUSP *UDC PO PRN (04:55)
[2020-11-07] MEDS ORDERED: MOM 30ML SUSPENSION UDC PO PRN (04:55)
[2020-11-07] MEDS ORDERED: ACETAMINOPHEN TAB 650MG DOSE (2X325MG) PO PRN (04:55)
[2020-11-07 05:32] LABS: RSV AMPLIFICATION NEGATIVE (NEGATIVE)
[2020-11-07] MEDS: SENOKOT S TAB PO SCH ×2 (09:00→21:00)
[2020-11-07] MEDS ORDERED: MIRALAX *UNIT DOSE* 17GM PACKET PO PRN (10:50)
[2020-11-07] MEDS ORDERED: ALBUTEROL 90 MCG/ACT 8GM HFA INHALER INH PRN (10:50)
[2020-11-07 10:54] VITALS: BP 129/70
[2020-11-07] MEDS ORDERED: diphenhydrAMINE 50MG CAP PO PRN (10:55)
[2020-11-07] MEDS: levETIRAcetam 250MG TABLET (KEPPRA) PO SCH ×2 (11:45→21:00)
[2020-11-07] MEDS: LORazepam 2 MG TAB PO SCH ×2 (11:45→17:59)
[2020-11-07] MEDS: CitaloPRAM (CeleXA) 20 MG TAB PO SCH (11:46)
[2020-11-07] MEDS: ChlorproMAZINE 100 MG TABLET PO SCH ×2 (11:46→21:00)
[2020-11-07] MEDS: NICOTINE 21MG/24HR 1 EA TRANSDERMAL TOP SCH (11:46)
[2020-11-07 17:59] VITALS: BP 120/66
[2020-11-07] MEDS ORDERED: SUMAtriptan SUCCINATE 25 MG TAB PO PRN (18:45)
[2020-11-07] MEDS: FLUTICASONE PROP 0.05% NASAL SPRAY 16 GM (FLONASE) NARES SCH (20:31)
[2020-11-07] MEDS: METHADONE 10 MG TAB (S0109) PO SCH (20:31)
[2020-11-07] MEDS: GABAPENTIN 300 MG CAP PO SCH (21:00)
[2020-11-08] MEDS: LORazepam 2 MG TAB PO SCH ×3 (01:10→12:12)
[2020-11-08 06:14] VITALS: BP 112/58
[2020-11-08] MEDS: NICOTINE 21MG/24HR 1 EA TRANSDERMAL TOP SCH (09:00)
[2020-11-08] MEDS: levETIRAcetam 250MG TABLET (KEPPRA) PO SCH ×2 (09:48→21:33)
[2020-11-08] MEDS: FLUTICASONE PROP 0.05% NASAL SPRAY 16 GM (FLONASE) NARES SCH (09:48)
[2020-11-08] MEDS: GABAPENTIN 300 MG CAP PO SCH ×3 (09:48→21:33)
[2020-11-08] MEDS: METHADONE 10 MG TAB (S0109) PO SCH (09:48)
[2020-11-08] MEDS: SENOKOT S TAB PO SCH ×2 (09:48→21:33)
[2020-11-08] MEDS: CitaloPRAM (CeleXA) 20 MG TAB PO SCH (09:48)
[2020-11-08] MEDS: ChlorproMAZINE 100 MG TABLET PO SCH ×2 (09:48→21:34)
[2020-11-08 16:24] VITALS: BP 119/61
[2020-11-09] MEDS: NICOTINE 21MG/24HR 1 EA TRANSDERMAL TOP SCH (09:00)
[2020-11-09] MEDS: SENOKOT S TAB PO SCH ×2 (09:36→20:23)
[2020-11-09] MEDS: ChlorproMAZINE 100 MG TABLET PO SCH ×2 (09:36→20:23)
[2020-11-09] MEDS: METHADONE 10 MG TAB (S0109) PO SCH (09:36)
[2020-11-09] MEDS: GABAPENTIN 300 MG CAP PO SCH ×3 (09:36→20:22)
[2020-11-09] MEDS: CitaloPRAM (CeleXA) 20 MG TAB PO SCH (09:36)
[2020-11-09] MEDS: FLUTICASONE PROP 0.05% NASAL SPRAY 16 GM (FLONASE) NARES SCH (09:36)
[2020-11-09] MEDS: levETIRAcetam 250MG TABLET (KEPPRA) PO SCH ×2 (09:37→20:21)
[2020-11-09] MEDS: BENZTROPINE 1 MG TAB PO PRN (17:04)
[2020-11-10 06:48] VITALS: BP 119/63
[2020-11-10] MEDS: METHADONE 10 MG TAB (S0109) PO SCH (09:11)
[2020-11-10] MEDS: SENOKOT S TAB PO SCH ×2 (09:11→20:02)
[2020-11-10] MEDS: levETIRAcetam 250MG TABLET (KEPPRA) PO SCH ×2 (09:11→20:03)
[2020-11-10] MEDS: ChlorproMAZINE 100 MG TABLET PO SCH ×2 (09:11→20:02)
[2020-11-10] MEDS: FLUTICASONE PROP 0.05% NASAL SPRAY 16 GM (FLONASE) NARES SCH (09:11)
[2020-11-10] MEDS: GABAPENTIN 300 MG CAP PO SCH ×3 (09:11→20:03)
[2020-11-10] MEDS: CitaloPRAM (CeleXA) 20 MG TAB PO SCH (09:12)
[2020-11-10] MEDS: NICOTINE 21MG/24HR 1 EA TRANSDERMAL TOP SCH (09:12)
[2020-11-10 16:23] VITALS: BP 121/71
[2020-11-11 07:17] VITALS: BP 113/64
[2020-11-11] MEDS: METHADONE 10 MG TAB (S0109) PO SCH (09:00)
[2020-11-11] MEDS: NICOTINE 21MG/24HR 1 EA TRANSDERMAL TOP SCH (09:00)
[2020-11-11] MEDS: FLUTICASONE PROP 0.05% NASAL SPRAY 16 GM (FLONASE) NARES SCH (09:21)
[2020-11-11] MEDS: CitaloPRAM (CeleXA) 20 MG TAB PO SCH (09:22)
[2020-11-11] MEDS: GABAPENTIN 300 MG CAP PO SCH (09:22)
[2020-11-11] MEDS: ChlorproMAZINE 100 MG TABLET PO SCH (09:22)
[2020-11-11] MEDS: SENOKOT S TAB PO SCH (09:22)
[2020-11-11] MEDS: levETIRAcetam 250MG TABLET (KEPPRA) PO SCH (09:23)
[2020-11-11] MEDS: BENZTROPINE 1 MG TAB PO PRN (09:24)
== END 2020-11-11 15:06 | disposition home or self-care (01) | DRG 750 ==
LOC: M ED 18:26 → M ED INP 11-07 04:53 → M PSY 11-07 10:41
PROVIDERS: ADMIT Psychiatry & Neurology Psychiatry; ATTEND Psychiatry & Neurology Psychiatry
DX: F25.0 Schizoaffective disorder, bipolar type (principal); G40.909 Epilepsy, unspecified, not intractable, without status epilepticus; F11.10 Opioid abuse, uncomplicated; Z59.0 Homelessness; Z91.14 Patient's other noncompliance with medication regimen; Z91.19 Patient's noncompliance with other medical treatment and regimen; F15.10 Other stimulant abuse, uncomplicated; Z20.822 Contact with and (suspected) exposure to COVID-19; Z79.899 Other long term (current) drug therapy; Z88.0 Allergy status to penicillin; Z88.2 Allergy status to sulfonamides; Z88.8 Allergy status to other drugs, medicaments and biological substances; Z86.16 Personal history of COVID-19; F17.200 Nicotine dependence, unspecified, uncomplicated; G43.909 Migraine, unspecified, not intractable, without status migrainosus; B19.20 Unspecified viral hepatitis C without hepatic coma; M79.2 Neuralgia and neuritis, unspecified

== ENCOUNTER 2020-11-20 18:55 | Emergency (ER) | payer OTHER ==
[~2020-11-20] VITALS: Ht 154.9 cm; Wt 65.9 kg
[~2020-11-20 18:55] MED LIST changes: +ALBU8.5H INH; +CITA10TA5 PO; -CITA10TA7 PO; -CLIN-250; -CLIN-250 PO; +CLIN300C6; +CLIN300C6 PO; -DOXY-443 PO; +DOXY1CAP62 PO; +FLUT15.820 NARES; +IBUP200T45 PO; -IBUP200T46 PO; +LATU80TA; -LATU80TA2; +SENN-23 PO
[2020-11-20 20:08] VITALS: BP 119/57
[2020-11-20] MEDS ORDERED: CELE20TA PO (20:17)
[2020-11-20 22:22] LABS: HEMATOCRIT 36.7 % (36.0-47.0); HEMOGLOBIN 12.3 g/dl (12.0-15.5); MEAN CORPUSCULAR HEMOGLOBIN 29.9 pg (27.0-33.0); MEAN CORPUSCULAR HGB CONC 33.5 g/dl (32.0-36.5); MEAN CORPUSCULAR VOLUME 89.3 fl (80.0-96.0); PLATELET COUNT, AUTOMATED 287 10^3/uL (150-450); RED BLOOD COUNT 4.11 10^6/uL (4.00-5.40); WHITE BLOOD COUNT 6.9 10^3/uL (4.0-10.0)
[2020-11-20 22:29] LABS: AMPHETAMINES LEVEL URINE POSITIVE (NEGATIVE); BARBITURATES URINE NEGATIVE (NEGATIVE); BENZODIAZEPINES URINE NEGATIVE (NEGATIVE); CANNABINOIDS URINE NEGATIVE (NEGATIVE); COCAINE METABOLITE URINE NEGATIVE (NEGATIVE); METHADONE URINE POSITIVE (NEGATIVE); OPIATES URINE NEGATIVE (NEGATIVE); PHENCYCLIDINE URINE NEGATIVE (NEGATIVE)
[2020-11-20 22:56] LABS: ACETAMINOPHEN LEVEL < 2.0 UG/ML (10.0-30.0); ALBUMIN 3.6 GM/DL (3.2-5.2); ALT/SGPT 47 U/L (12-78); BILIRUBIN,DIRECT 0.1 MG/DL (0.0-0.2); BILIRUBIN,TOTAL 0.3 MG/DL (0.2-1.0); BLOOD UREA NITROGEN 23 MG/DL (7-18); CALCIUM LEVEL 8.6 MG/DL (8.5-10.1); CARBON DIOXIDE LEVEL 26 MEQ/L (21-32); CHLORIDE LEVEL 105 MEQ/L (98-107); CREATININE FOR GFR 0.77 MG/DL (0.55-1.30); ETHYL ALCOHOL (ETHANOL) < 0.003 % (0.000-0.010); GLOMERULAR FILTRATION RATE > 60.0 (>60); GLUCOSE, FASTING 111 MG/DL (70-100); SALICYLATE LEVEL 2.3 MG/DL (5.0-30.0); SODIUM LEVEL 138 MEQ/L (136-145); THYROID STIMULATING HORMONE 0.875 uIU/ML (0.358-3.740); TOTAL PROTEIN 6.7 GM/DL (6.4-8.2)
== END 2020-11-20 23:48 | disposition home or self-care (01) ==
LOC: M ED 18:55
DX: F22 Delusional disorders (principal); F15.10 Other stimulant abuse, uncomplicated; Z79.899 Other long term (current) drug therapy; Z88.0 Allergy status to penicillin; Z88.8 Allergy status to other drugs, medicaments and biological substances

== ENCOUNTER → 2020-12-16 | Outpatient (CLI) | payer OTHER ==
[~2020-12-16] MED LIST changes: +CLIN-250; +CLIN-250 PO; -CLIN300C6; -CLIN300C6 PO; +DOXY-443 PO; -DOXY1CAP62 PO; -IBUP200T45 PO; +IBUP200T46 PO
[2020-12-16 11:28] LABS: BASO % 0.4 % (0.0-1.0); EOS # 0.1 10^3/uL (0.0-0.5); EOS % 0.8 % (0.0-3.0); HEMATOCRIT 40.1 % (36.0-47.0); HEMOGLOBIN 13.2 g/dl (12.0-15.5); LYMPH # 2.7 10^3/uL (1.5-5.0); LYMPH % 26.3 % (24.0-44.0); MEAN CORPUSCULAR HEMOGLOBIN 30.2 pg (27.0-33.0); MEAN CORPUSCULAR HGB CONC 32.9 g/dl (32.0-36.5); MEAN CORPUSCULAR VOLUME 91.8 fl (80.0-96.0); MONO # 0.6 10^3/uL (0.0-0.8); MONO % 5.7 % (2.0-8.0); NEUTROPHILS # 6.7 10^3/uL (1.5-8.5); NEUTROPHILS % 66.2 % (36.0-66.0); PLATELET COUNT, AUTOMATED 422 10^3/uL (150-450); RED BLOOD COUNT 4.37 10^6/uL (4.00-5.40); WHITE BLOOD COUNT 10.1 10^3/uL (4.0-10.0)
[2020-12-16 12:11] LABS: BLOOD UREA NITROGEN 16 MG/DL (7-18); CREATININE FOR GFR 0.84 MG/DL (0.55-1.30); GLOMERULAR FILTRATION RATE > 60.0 (>60); GLUCOSE, FASTING 88 MG/DL (70-100); SODIUM LEVEL 138 MEQ/L (136-145)
[2020-12-16 12:12] LABS: ALBUMIN 4.2 GM/DL (3.2-5.2); ALT/SGPT 25 U/L (12-78); BILIRUBIN,TOTAL 0.2 MG/DL (0.2-1.0); CALCIUM LEVEL 9.6 MG/DL (8.5-10.1); CARBON DIOXIDE LEVEL 25 MEQ/L (21-32); CHLORIDE LEVEL 109 MEQ/L (98-107); CHOLESTEROL LEVEL 200 MG/DL (<200); CHOLESTEROL RISK RATIO 4.255 (<5); FREE T4 0.88 NG/DL (0.76-1.46); HDL CHOLESTEROL 47 MG/DL (>40); LDL CHOLESTEROL 122 MG/DL (<100); NON-HDL-C 153 MG/DL; POTASSIUM SERUM 4.8 MEQ/L (3.5-5.1); TOTAL PROTEIN 7.7 GM/DL (6.4-8.2); TRIGLYCERIDES LEVEL 155 MG/DL (<150)
== END ==
LOC: M LAB 09:38
PROVIDERS: ATTEND Family Medicine Addiction Medicine
DX: E05.90 Thyrotoxicosis, unspecified without thyrotoxic crisis or storm (principal)

== ENCOUNTER 2020-12-19 10:32 | Emergency (ER) | payer OTHER ==
[~2020-12-19] VITALS: Ht 154.9 cm; Wt 79.1 kg
--- OUTSIDE RECORDS SUMMARY | 2020-12-19 10:45 | CCD | Summary of Care ---
Author Author [facility] Address Unknown Phone Unavailable Care Team Providers Care Accounting Methods Analyst Name Role Phone JodyMarj SUBGRADE ROLLER OPERATOR PCP Reason for Visit * Auth/Cert Referred By Contact Referred To Contact Status Reason Specialty Diagnoses / Procedures Diagnoses Suicidal ideation SI, psychosis Encounter Details Care Team Description Date Type Department Petr Hood MD [address] [place] [id number] [phone] Ketty Alcala MD [address] [place] [address] [phone] Suicidal ideation 09/11/[address] PSYCHIATRY C C - Encounter [address] 09/29/2020 [place] [address] Allergies Comments Active Allergy Reactions Severity Noted Date Dextroamphetamine 08/06/2020 Haloperidol 08/06/2020 Penicillins 08/06/2020 Sulfamethoxazole 08/06/2020 Trimethoprim 08/06/2020 Ziprasidone 08/06/2020 documented as of this encounter (statuses as of 09/29/2020) Medications End Date Status Medication Sig Dispensed Refills Start Date Active Benztropine Mesylate 1 MG Take 1 tablet 30 tablet 1 Oral Tablet (COGENTIN) by mouth Two 1 times daily as needed 10/29/2020 Active chlorproMAZINE HCl 100 MG Take 1 tablet 60 tablet 0 Oral Tablet (THORAZINE) by mouth Two 1 Times Daily 09/29/2021 Active Citalopram Hydrobromide Take 1 tablet 30 tablet 0 10 MG Oral Tablet by mouth 1 (CELEXA) daily Active Gabapentin 600 MG Oral Take 1 tablet 30 tablet 1 0 Tablet (NEURONTIN) by mouth 1 Three times daily Active levETIRAcetam 1000 MG Take 1 tablet 30 tablet 1 Oral Tablet (KEPPRA) by mouth Two 1 Times Daily 09/29/2020 Discontinued (Reorder) levetiracetam (KEPPRA) Take 1,000 mg 0 1000 MG tablet by mouth Two Times Daily 09/12/2020 Discontinued (Error) Gabapentin 300 MG Oral Take 2 84 capsule 0 Capsule (NEURONTIN) capsules by 1 mouth Three times daily 09/29/2020 Discontinued (Stop Taking at Discharge) Asenapine Maleate [address] 1 30 tablet 1 Sublingual Tablet tablet under 1 Sublingual (SAPHRIS) the tongue Two Times Daily 09/29/2020 Discontinued (Stop Taking at Discharge) Buprenorphine Place 2 Film 0 HCl-Naloxone HCl 8-2 MG under the 1 Sublingual Film tongue daily (SUBOXONE) 09/29/2020 Discontinued (Reorder) Gabapentin 600 MG Oral Take 600 mg 0 02 Tablet (NEURONTIN) by mouth 1 Three times daily documented as of this encounter (statuses as of 09/29/2020) Active Problems Patient Care Coordination Note 08/16/20- Active with Genaro Hodges,Case Man ager,[phone], at [facility], [phone]. 09/22/20 [facility] [phone] Problem Noted Date Schizoaffective disorder, bipolar type by history Hospitalization within last 30 days 09/24/2020 Overview: Formatting of this note might be differ ent from the original. Schizoaffective disorder, bipolar type History of ADHD, PTSD, Anxiety 3rd [facility] hospitalization in one [facility]. Her outpatient team had suggested longer term care. 09/23/2020-referred to [facility]. History of drug use-self reported 09/24/2020 Psychosis 09/24/2020 Mood disorder 08/25/2020 Seizure 08/07/2020 documented as of this encounter (statuses as of 09/29/2020) Resolved Problems Problem Noted Date Resolved Date Substance abuse 08/07/2020 09/24/2020 Suicidal ideation 08/06/2020 09/24/2020 documented as of this encounter (statuses as of 09/29/2020) Social History Date Tobacco Use Types Packs/Day Years Used Smoker, Current Status Cigarettes 0.5 Unknown Smokeless Tobacco: Never Used Tobacco Cessation: Ready to Quit: No; Co unseling Given: No Comments Alcohol Use Standard Drinks/Week Not Currently 0 (1 standard drink = 0.6 o z pure alcohol) Alcohol Habits Answer Date Recorded How often do you have a drink containing alcohol? Never 09/11/2020 How many drinks containing alcohol do you have on No t asked a typical day when you are drinking? How often do you have six or more drinks on one Not asked occasion? Social Isolation Answer Date Recorded In a typical week, how many times do you talk on Once a we ek 09/11/2020 the phone with family, friends, or neig hbors? How often do you get together with friends or Never 09/11/2020 relatives? How often do you attend druze or oriental orthodox Never 09/11/2020 services? Do you belong to any clubs or organizations such No 09/11/2020 as druze groups, unions, fraternal or athletic groups, or school groups? How often do you attend meetings of the clubs or Not asked organizations you belong to? Are you now , , , , Never m arried 09/11/2020 never or living with a partner? Physical Activity Answer Date Recorded On average, how many days per week do you engage 0 days 09/11/2020 in moderate to strenuous exercise (like walking fast, running, jogging, dancing, swimmi ng, biking, or other activities that cause a light or heavy sweat)? On average, how many minutes do you engage in 0 min 09/11/2020 exercise at this level? Stress Answer Date Recorded Do you feel stress - tense, restless, nervous, or Very muc h 09/11/2020 anxious, or unable to sleep at night be cause your mind is troubled all the time - these d ays? Financial Resource Strain Answer Date Recorde d How hard is it for you to pay for the very basics Very sarbjit d 09/11/2020 like food, housing, medical care, and h eating? Food Insecurity Answer Date Recorded Within the past 12 months, you worried that your Often shauna e 09/11/2020 food would run out before you got money to buy more. Within the past 12 months, the food you bought Often true 09/11/2020 just didn't last and you didn't have mo breonna to get more. Sex Assigned at Date Recorded Not on file Date Recorded COVID-19 Exposure Response 09/15/2020 11:05 AM EDT In the last month, have you been in contact with No / Unsure someone who was confirmed or suspected to have Coronavirus / COVID-19? documented as of this encounter Last Filed Vital Signs Reading Time Taken Comments Vital Sign 90/58 09/29/2020 9:15 AM EDT Blood Pressure 102 09/29/2020 9:15 AM EDT Pulse 36.5 C (97.7 F) 09/29/2020 8:31 AM EDT Temperature 16 09/29/2020 9:15 AM EDT Respiratory Rate 98% 09/29/2020 9:15 AM EDT Oxygen Saturation - - Inhaled Oxygen Concentration 66.5 kg (146 lb 9.6 oz) 09/11/2020 4:34 PM EDT Weight 152.4 cm (5') 09/11/2020 4:34 PM EDT Height 28.63 09/11/2020 4:34 PM EDT Body Mass Index documented in this encounter Discharge Summaries * Ketty Alcala MD - 09/29/2020 10:21 AM EDT Psychiatric Discharge Summary Patient Melissa Diaz Come Admit Date 09/11/2020 Discharge Date September 29, 2020 1985 Discharge Physician eKtty Alcala MD Reason for Admission: Suicidal ideation [R45.851] Discharge Diagnosis: Substance Induced Psychosis; Amphetamine Abuse; Opioid Abus e; Borderline Personality Disorder; Schizoaffective Disorder by Hx; Non complian ce with Treatment Initial Assessment & History Initial Assessment & HPI: Per Pablo Lemus SUBGRADE ROLLER OPERATOR: Pt is a 35 year old female with past psychiatric history significant f or polysubstance abuse, schizoaffective disorder bipolar type, was presented to Er with acute psychosis and delusions about missing her daughter, complain about her family, paranoid feelings about other people who ""robert her as cat" etc. I nitially, she was presented to [facility] with same presentation. After being d ischarge form ED she refuse to leave hospital and became angry and agitated. Tomer onel was involved. Because, she does not likes to leave property, she stated that she as SI. Pt was transferred to ED at [facility]. Pt was seen and eval uate in private. She was still slightly irritated, but more cooperative. On sess ion, Pt presented disorganized thoughts and delusions about missing her daughter , her family, and "how people likes to hurt her and robert as cat." Pt is focus to obtain her medications, especially Suboxone, Gabapentin, and "maria de jesus ething for pain." Medication need to be check with pharmacy. At present time, sh tai denies any SI or HI. Psychiatric History: Past diagnoses: polysubstance abuse, schizoaffective disorder bipolar type, mul tiple suicidl aattempts Past Treatment: unclear. MD Renee from [facility] Therapist: unclear Psychiatrist/shank faker: unclear Past Medication Trials and Effects: multiple Other Treatment Team Members: unclear ED/CPEP Visits: multiple Inpatient or residential admission: Multiple, Self-harm: Burning, per record Violence/aggression: yes, attacks staff and peers Suicide Attempts: At least 20, last 7 months ago Access to firearms: denies Family History: Mental illness: Mother, sister (per Pt report) Substance use disorder: "All family" Suicide attempts: mother Social History: Living Situation: Pt is 35 year old single female, mother of 3 children, who currently i s homeless and stay with some of her friends in [place], [place] Education: Highest level completed: 7th grade IQ/Learning disability/Special accommodations needed: unclear Significant Other: denies Children: 3 (15, 14, and 10 yo) Trauma: Denies Abuse: sexual,physical, mental Bullying: denies Supports: limited Legal Issues: trespassing hospital property, hx of incarceration for assault Experience: denies Other: does not have custody of any of her children, has not seen her two sons i n over 10 years. Extensive substance abuse history. Past Medical/Surgical History: Past Medical History: Diagnosis Date Seizures Substance abuse 08/07/2020 Suicidal ideation 08/06/2020 Past Surgical History: Procedure Laterality Date HERNIA REPAIR Patient Active Problem List Diagnosis Seizure Mood disorder Schizoaffective disorder, bipolar type by history Hospitalization within last 30 days History of drug use-self reported Psychosis Allergies: Dextroamphetamine, Haldol [haloperidol], Penicillins, Sulfamethoxazol e, Trimethoprim, and Ziprasidone Hospital Course & Admission MSE Hospital Course: Melissa was admitted on transfer from [facility] on invol untary status. T/w was assigned to this pt 48 hours before discharge, most of th e hospital course is taken from previous progress notes. Per Sydnee Spicer, [facility] 09/11/20 - 09/23/20: Her disorganized thought process is shown minimal improvement. She has been ple asant. Initially she was concerned of the hospital regimen, food issues but kenna t resolved quickly. Today she remains with intermittent somatic focus. Initial ly she was disorganized to the point where she could not assist with the medicat ion plans. she has improved to the point at this time she is able to tell us ex actly how the medications have been successful in the past. Her medications wer e significantly adjusted as she did not have a robust response. Her report of p ain and anxiety being on at 10 out of 10 scale has improved but not not eliminat ed. She has been compliant with medications. She has very minimal use of as ne eded medications. Her disorganization includes statements such as "I am a proph et from God". She has been interactive with groups, walking the hallways. Most generally in good spirits she remains difficult to have her remain with a linea r thought process unless she is in a structured interview. Non-structured inter views she remained disorganized. Her gabapentin was increased per her report of pain. She did have some statement of pain and that her normal dose was higher. Her somatic focus was notable as an ongoing issue, almost a preoccupation but n ot severe. This was in conjunction with her disorganized thought process. Her struggle with disorganized thought process lingers. Her paranoia and delusions also linger. Resuming Thorazine has not made dramatic improvement. The titrati on of the medication with some effect but not robust. She remained unfocused an d disorganized when she speaks without a structured interview. At times she wou ld speak of the voices, at one point voices were telling her to violent acts how ever she was quite pleasant. She denied any issues with the medications or medi cation changes. She definitely did not have a robust response to the medication s and the return to Thorazine use with prior success. Melissa had intermittent co mplaints of somatic nature. A urinalysis was completed and no organic basis of her complaints. She continued to report that she was being persecuted including being poisoned by her family. Her labs were completed non actionable. Always pleasant she reported that she feels calm but she was still upset her family "is always sending me back to psych". She reported statements including "money he (father) left me when I was 13 years old because he knew I had these problems wi th my brain and would need the extra help". She did request to be referred to a [facility] inpatient far away from her mother and the family. She indicated ongoing paranoia that she and her mother share the same psychiatrist and that h er mother 'tells them all of my business". Her paranoia continued that she feel s she cannot trust people to not poison her. She stated that "somebody keeps ca nceling medication that is ordered for me". She did ask about getting off from Suboxone and being placed on methadone indicating that would help her pain. She has been referred to on license of [facility] due to the ongoing presence of delusions noelle pite medication adherence. likely needs more time to stabilize fully. She did require emergent PRNs on multiple occasions for aggressive behavior, she responded best to Thorazine 100mg IM. She was started on Thorazine 25mg BID whi ch was titrated to 100mg BID with good effect in her mood stability and aggressi on. She was more cooperative to care, able to remain in behavioral control for o rosie 48 hours. She was requesting discharge. She did still have some tangential t hought processes, but was coherent and forward thinking. She denies that she has a substance abuse problem and was not interested in inpatient rehab and felt th at she could manage her addiction in outpatient treatment. She actually called [facility] on her own and completed her intake over the phone. She prefers to resume M ethadone treatment on discharge from this facility, saying that having to go kim ry morning for her dose will keep her more compliant than if she had suboxone at home. SW did call to confirm that she can be bridged from suboxone to Methadone , but it will take a few weeks. She was continued on Celexa 10mg daily and Gabap entin 600mg TID during her hospitalization. She had Clonidine 0.1mg TID PRN for anxiety which she did not use that frequently, she also had Trazodone 50mg at be dtime PRN which she only used occasionally. On discharge, we sent the Gabapentin , Celexa and Thorazine to the pharmacy of choice. Her Keppra and Cogentin were c ontinued as well. She has completed a safety plan and has consistently been aski ng for discharge. She seems to be at her psychiatric baseline. MSE on Admission: General Appearance (nutrition, body habitus, grooming): Pt is average tall and overweight young female, dressed in hsopital attire, fair hygiene , fair eye contact Level of consciousness: Awake and alert Orientation: Oriented to person, place, and time Behavior/Attitude: irritated Gait/Motor Behavior/Muscle Tone: normal Speech: Productive, disorganized, mumbling Thought Process: disorganized Associations (normal/circumstantial/tangential/loose/flight of ideas): cir cumferential Abnormal/Psychotic Thoughts (delusions, preoccupation with violence, SI/HI) : deneis Perceptual Disturbances (hallucinations): Delusions - paranoid and ideas o freferences Mood: "Anxious" Affect: irritated Cognition: impaired Insight and Judgement: poor Discharge Exam MSE on Discharge: Vitals: Visit Vitals BP 90/58 (BP Location: Left arm, Patient Position: Sitting) Pulse (!) 102 Temp 36.5 C (97.7 F) (Oral) Resp 16 Ht 1.524 m Wt 66.5 kg (146 lb 9.6 oz) LMP 09/11/2020 (Exact Date) SpO2 98% BMI 28.63 kg/m Appearance: casually dressed, dyed hair, overweight eye contact; good hygiene; fair Gait/Motor/Behavior: normal gait; no psychomotor abnormalities, psychomotor retardation: none and psychomotor agit ation: none; Involuntary Movements: Absent Behaviors: cooperative, requesting discharge Speech: normal rate, rhythm, and tone Mood/Affect: Mood: good, stable Affect: Euthymic,Congruent,Full Range and Expansive Perceptions: Denies hallucinations Thought Process: coherent Thought Content: General: focused on discharge Delusions: none Suicidal Ideation: denied Homicidal Ideation: denied Cognition: Intellectual Functioning: Below average Insight: limited . Judgement:fair . Psychiatric ROS: denies depression, anxiety, paranoia, delusions, michael, psychos is, sleep disturbance, cravings, suicidal or homicidal ideation plan or intent Physical Exam: No change from admission Body mass index is 28.63 kg/m. Pertinent Labs: Lab Results Component Value Date HGBA1C 4.9 09/17/2020 Lab Results Component Value Date CHO 169 09/17/2020 TRIG 229 (H) 09/17/2020 HDL 38 (L) 09/17/2020 LDL 85 09/17/2020 VLDL 46 (H) 09/17/2020 NHDL 131 (H) 09/17/2020 Lab Results Component Value Date NA 138 09/17/2020 K 4.2 09/17/2020 CL 101 09/17/2020 BICARBONATE 27 09/17/2020 ANIONGAP 9 09/17/2020 GLUCOSE 115 09/17/2020 BUN 13 09/17/2020 CREATININE 0.66 09/17/2020 GFRAA >90 09/17/2020 GFRNONAA >90 09/17/2020 CALCIUM 9.3 09/17/2020 TBILI <0.2 09/17/2020 ALKPHOS 59 09/17/2020 ALT 13 09/17/2020 AST 16 09/17/2020 ALBUMIN 4.0 09/17/2020 PROT 6.5 09/17/2020 Lab Results 09/17/20 (!) WBC: 4.6 RBC: 4.27 HGB: 12.5 HCT: 37.5 MCV: 87.8 MCH: 29.2 MCHC: 33.3 RDW: 14.0 PLT: 261 NEUTR PCT: 32 LYMPH PCT: 55 MONO PCT: 9 EOS PCT: 3 BASO MANUAL: 1 NEUTR ABS: 1.46 (!) LYMPH ABS: 2.51 MONO ABS: 0.43 BASO ABS: 0.03 No results for input(s): TSH, T3FREE, D9ZLYQK, FREET4, F4UFLBC in the last 168 h ours. Action Taken: none Medical Review of Systems: 1. Constitutional Positive [] Negative [x] 2. Cardiovascular Positive [] Negative [x] 3. Respiratory Positive [] Negative [x] 4. Gastrointestinal Positive [] Negative [x] 5. Genitourinary Positive [] Negative [x] 6. Muscular Positive [] Negative [x] 7. Neurological Positive [] Negative [x] 8. Endocrine Positive [] Negative [x] 9. Allergies/Immune Positive [] Negative [x] .INPATIENT SUICIDE SEVERITY RATING SCALE (based on the C-SSRS) Evaluation of Suicide Severity at the time of Discharge 1) Wish to be : Person endorses thoughts about a wish to be or not alive anymore, or wish t o fall asleep and not wake up? Have you wished you were or wished you could go to sleep and not wake up? No 2) Suicidal Thoughts: General non-specific thoughts of wanting to end one's life/ by suicide, "I've thought about killing myself" without general thoughts of ways to kill oneself/ associated methods, intent, or plan. Have you actually had any thoughts of killing yourself? No 3) Suicidal Thoughts with Method (without Specific Plan or Intent to Act): Person endorses thoughts of suicide and has thought of at least one method durin g the assessment period. This is different than a specific plan with time, place or method details worked out. "I thought about taking an overdose but I never m oralia a specific plan as to when where or how I would actually do it...and I would never go through with it." Have you been thinking about how you might do this? No 4) Suicidal Intent (without Specific Plan): Active suicidal thoughts of killing oneself and patient reports having some inte nt to act on such thoughts, as opposed to "I have the thoughts but I definitely will not do anything about them." Have you had these thoughts and had some intention of acting on them? No 5) Suicide Intent with Specific Plan: Thoughts of killing oneself with details of plan fully or partially worked out a nd person has some intent to carry it out. Have you started to work out or worked out the details of how to kill yourself? Do you intend to carry out this plan? No 6) Suicidal Behavior Question: Have you ever done anything, started to do anything, or prepared to do anything to end your life? Examples: Collected pills, obtained a gun, gave away valuables, wrote a will or suicide note, took out pills but didn't swallow any, held a gun but changed your mind or it was grabbed from your hand, went to the roof but didn't jump; or act ually took pills, tried to shoot yourself, cut yourself, tried to hang yourself, etc. Yes If YES, ask: Were any of these in the past 3 months? No 7) Suicidal Attempts: Have you made a suicide attempt (took an action to end your life)? Yes If YES, ask: 7a) How many attempts have you ever made? 7b) How long ago was your most recent attempt? 4-12 months Suicide Risk: Chronically elevated General Suicide Risk Factors Chronic Predisposing Risk Factors (Permanent and Non-modifiable): Demographics - White, History of Psychiatric Hospitalization, History of Violent Behaviors, Hi story of Impulsive/Reckless Behaviors, History of Trauma or Abuse (Physical or S exual) and History of Self-Harm Behavior Chronic Predisposing Risk Factors (Potentially Modifiable): [place] I Disorders, es pecially Mood/Bipolar, Anxiety, Schizophrenia, Alcohol/Substance Use, Eating, Damian dy Dysmorphic, ADHD/Conduct, [place] II Personality Disorder, especially Borderline /Cluster B, Psychiatric Comorbidity, especially Mood and Alcohol Use Disorder an d Tobacco Smoking Chronic Environmental Factors (Potentially Modifiable): Receiving Public Assista nce/Disability and Residential Instability Acute Risk Factors (Behavioral): Excessive or Increased Use of Substances (alcoh ol or drugs), Recklessness or Excessive Risk-Taking Behavior and Recent Discharg e from Psychiatric Hospitalization Acute Risk Factors (Cognitive/Emotional): Intense Affect (Anxiety, Panic, Agitat ion, Anger, Rage, Seeking Revenge) and Poor Problem-Solving Precipitating or Triggering Stimuli: Any Real or Anticipated Event Inducing - Sh jalen, Guilt, Despair, Dread, Humiliation, Unacceptable Loss of Face or Status, An y Real or Anticipated Event Associated with - Legal/Disciplinary/Academic/Financ ial Problems and Feelings of Rejection/Abandonment Patient does not have access to guns. Patient does not have access to other potentially lethal means. Protective Factors Internal: Help-seeking behavior/advice seeking, High levels of reasons for livin g, future orientation and optimism and Reasonable Safety Plan External: Perceived connectedness to work/school/community, Social integration/o pportunities to participate and Responsibilities for others/pets Clinical Formulation Violence Risk Assessment (VRISK-10): Scoring instruction: The rater collects information about each of the ten risk factors on the V-RISK- 10 checklist. Some examples of important scoring information are described under each item. Put a check in the box to indicate the degree of likelihood that the risk factor applies to the patient in question: No: Maybe/moderate: Yes: Do not know: Does not apply to this patient Maybe applies/present to a moderately severe degree Definitely applies to a severe degree Too little information to answer 1. Previous and/or current violence Severe violence refers to physical attack (including with various weapons) towar ds another individual with intent to inflict severe physical harm. Yes: The amanda vidual in question must have committed at least 3 moderately violent aggressive acts such as kicks, blows and shoving that does not cause severe harm to the tapan maria elena is rated Maybe/moderate. No Maybe/ moderate Yes Do not know [] [] [x] [] 2. Previous and/or current threats (verbal/physical) Verbal: Statements, yelling and the like, that involve threat of inflicting othe r individuals physical harm. Physical: Movements and gestures that warn physical attack. No Maybe/ moderate Yes Do not know [] [] [x] [] 3. Previous and/or current substance abuse The patient has a history of abusing alcohol, medication and/or other substances (e.g. Amphetamine, heroin, cannabis). Abuse of solvents or glue should be inclu ded. To rate Yes, the patient must have and/or have had extensive abuse/dependen ce, with reduced occupational or educational functioning, reduced health and/or reduced participation in leisure activities. No Maybe/ moderate Yes Do not know [] [] [x] [] 4. Previous and/or current major mental illness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 sleeve shirt. Behavior: Attitude: Patient is cooperative and hostile. Psychomotor: Patient has normal gait Patient does not have psychomotor agitatio n, psychomotor retardation or abnormal movements. Patient does not exhibit agita tion or restlessness. Eye Contact: Eye contact is appropriate. Patient maintains good eye contact. Speech: Patient's speech is coherent, fluent and spontaneous. Speech quantity: n ormal amount. Rate is normal. Volume is normal. Tone is normal. Affect: Affect is angry, anxious, labile, inappropriate and congruent with state d mood. Patient appears constricted. Thought Process: Thought process is linear, coherent, goal directed and logical. Patient does not have racing thoughts. Thought Content: Patient expresses rumination. Patient does not express passive suicidal ideation, passive homicidal ideation, delusions of grandiosity, somatic delusions and ideas of persecution. Perceptions: Patient is not internally preoccupied. Patient does not have audito ry hallucinations or visual hallucinations. Cognition: Patient is awake and alert and attentive. She is oriented to person, place and time. She appears to have below average intelligence. Recent memory is not intact. Remote memory is not intact. Patient does not show good concentrati on. Insight: Limited Judgement: Limited due to poor compliance with healthcare, delusions Gait: steady Muscle Tone: no rigidity Labs: No results for input(s): NA, K, CL, BICARBONATE, CALCIUM, GLUCOSE, BUN, CREATINI NE, BCR, LABOSMO, PROT, ALBUMIN, TBILI, ALKPHOS, AST, ALT, AGGREGATE, AGRATIO, G FRAA, GFRNONAA in the last 168 hours. Recent Labs Lab 09/18/20 1548 WBCUA 1 No results for input(s): TSH, T3FREE, Y6OAXDZ, FREET4, D8XLWKO in the last 168 h ours. EK09/22/20 Ventricular Rate: 74 BPM Atrial Rate: 74 BPM P-R Interval: 160 ms QRS Duration: 84 ms Q-T Interval: 418 ms QTC Calculation(Bazett): 463 ms P [place]: 62 degrees R [place]: 39 degrees T [place]: 40 degrees : SINUS RHYTHM NORMAL ECG Assessment and Plan: PSYCHIATRIC DIAGNOSIS: Schizoaffective disorder, bipolar type History of ADHD, PTSD, Anxiety 09/23/2020-Melissa Diaz Come application to [facility] for [facility] (her home catchment area) was sent She has improved overall SW following closely as well. -pt aggressive hit staff threatening Secondary Diagnosis: 292.84 (F11.24) Opioid use disorder- on MAT (Suboxone) Seen for wk-end rounding. Duration of Face to Face Time (in minutes): 15 Floor Time (in minutes): 15 [x] Greater than 50% of patient time and floor time spent providing counseling and/or coordination of care Counseling provided with: [x] Patient [] Family [] Caregiver [x] Diagnostic results/impressions and/or recommendation studies [x] Risk s and Benefits of Treatment Options [x] Instruction for Management/Treatment and/or Follow-Up [x] Risk Factor Reduction [x] Importance of Compliance with Treatment Options [x] Patient/Family/Caregiver Education [x] Prognosis Coordination of Care provided with: [x] Nursing Staff [] Treatment Team [] Social Work [] Physician(s) [] Family [] Caregiver Justification for Continued Stay: [x] A. Continued Danger to Self and/or Others [x] B. Continued behavior intolerable to patient or society [x] C. High probability of A or B recurring if patient were discharged and immin ent re-hospitalization likely [] D. Recovery depends on use of modality, patient unwilling or unable to coop erate [] E. Major change of clinical conditions required extended treatment [] F. Patient has general medical condition requiring hospital care & due to psychiatric aspects, patient cannot be managed as well on non-psych unit [] ALC Alternate Level of Care Chart, medications reviewed. Care coordinated with treatment team. Patient is a 35-year-old lady who carries a diagnosis of schizoaffective disorder, bipolar t ype, polysubstance use disorder, history of PTSD. She had been homeless and stay ing with a male friend temporarily. Patient had been in and out of the hospital , struggling with frequent relapses on mood-altering substances and presenting w ith increasingly psychotic, bizarre, destructive behavior in the community. Dur ing this hospital stay, she had agreed to go to inpatient rehab. We also consid er long-term inpatient hospitalization at [facility]. Patient, however, is not too happy to be considered for a psychiatric hospitalization. "I don't have psychosis, I don't have schizophrenia. I have stress and those people are both ering me and it has been going on for the last 2-1/2 years. Police are investig ating and once they get to the bottom of stuff, then I'll be able to live peacef ully." Though she did not too intensely and forcefully talk about delusional be lieves that her sister and her mom are controlling her life and doing things to jeopardize her health and well-being. She reports that Thorazine has been helpi ng and she is glad that she got back on Thorazine. Patient is attending unit ac tivities and she is participating in unit activities and she seems to be showing improvement. The intensity of her irritability, psychosis, and even the intens ity of her somatic complaint seems to be getting a little bit better. We will f ollow her closely. * David Horton RN - 09/25/2020 12:49 AM EDT 19:00- 07:30 Report received from outgoing RN. Patient awake and in day room wo rking on a puzzle @ start of shift. Patient states mood is "ok", with subdued af fect. Patient was visible interacted with selective peers. Patient thought proc ess was still ruminative and disorganized, and behavior was cooperative. Patient denies SI/HI/AVH. Patient ambulated and performed ADLs independently. Patient w as med compliant as per apr. Will continue to monitor. Patient slept throughout night. Safety checks maintained with frequent rounding. Report given to oncoming staff. * Eleazar Chicas RN - 09/24/2020 7:20 PM EDT Report received from previous shift. Assumed care of pt from [id number]. Pt state s feeling "good" with congruent affect. Denies SI, HI, AVH, and pain. Was pleasa nt and cooperative at the beginning of this shift. Pt was visible in the milieu throughout the evening, socializing with peers and attending group. Around 1730, pt got into a verbal altercation with peer in the dayroom. Dayroom was cleared, public safety called, and pts . Pt received PRN clonidine and Atarax a nd was able to calm, but when peer continued making comments at the end of the h allway, pt escalated again. Pt moved to the conference room with staff and was a ble to calm again. Received PRN Tylenol for headache and Nicorette lozenge durin g this time. Pt was able to calm and contract for safety. Let conference room wi th senior mortgage underwriter, apologized to charge nurse, and went to her room to eat dinner. Pt wa s calm for the remainder of this shift. Will continue to monitor and report for safety. Report given to oncoming RN. * Ketty Alcala MD - 09/24/2020 2:02 PM EDT PSY Progress Note Subjective: CC: "I have lower abdominal pain" Interval history: Melissa Lee met with treatment team. Today Melissa is calm. She reports some lower abd pain, new onset diarrhea. And states she's had C. Diffic ile in the past. We talked with her a few minutes on that topic. She agreed to r each out if needed. Discussed the pain of lower abd may be related to the change in stool ing, possible gas. She states she did well on thorazine for years and appears improved. Yesterday likely an aberration due to the knowledge she had be en recommended for long-term stabilization at [facility]. Brief HPI: patient sent from [facility] hospital statements of "terrible, I'm bein g poisoned with battery acid" and "my intestines are hurting, I have leukemia", affect labile. Thought process slightly paranoid. states "worried that someone k illed my daughter" and "my mom and sister are preventing me from getting my medi cations". Melissa Lee has recurrent hospitalization. She has come from a distance with prior care at home Active with Genaro Hodges,Commercial Real Estate Agent,[phone], at [facility], [phone]. 09/22/20 [facility] [phone] however most recently with [facility] system: ED and Hospital Encounters last 60 days Complaint Department 1 month ago psychotic, schizoaffective disorder bipolar type 5W CC 1 month ago Acute psychosis 5W CC 1 week ago SI, psychosis 5W CC Patient Active Problem List Diagnosis Date Noted Schizoaffective disorder, bipolar type by history 09/24/2020 Hospitalization within last 30 days 09/24/2020 Schizoaffective disorder, bipolar type History of ADHD, PTSD, Anxiety [address] [place] [address] hospitalization in one month. Her outpatient team had suggested long er term care. 09/23/2020-referred to [facility]. History of drug use-self reported 09/24/2020 Psychosis 09/24/2020 Mood disorder 08/25/2020 Seizure 08/07/2020 Allergies: Allergies Allergen Reactions Dextroamphetamine Haldol [Haloperidol] Penicillins Sulfamethoxazole Trimethoprim Ziprasidone Scheduled Med's: buprenorphine-naloxone 2 Film Sublingual Daily chlorproMAZINE 100 mg Oral Nightly chlorproMAZINE 25 mg Oral BID citalopram 10 mg Oral Daily gabapentin 600 mg Oral TID levETIRAcetam 1,000 mg Oral BID Continuous Infusions: PRN Med's:.acetaminophen (TYLENOL) tablet, benztropine, bisacodyl, cloNIDine, do cusate sodium, hydroxzine, magnesium hydroxide, nicotine, senna, trazodone Review Of Systems: Medical Review Of Systems: Review of Systems Constitutional: Negative. Negative for fatigue. Respiratory: Negative. Cardiovascular: Negative. Neurological: Negative for headaches. Psychiatric/Behavioral: Negative for agitation, confusion, decreased concentrati on, dysphoric mood, hallucinations, self-injury, sleep disturbance and suicidal ideas. The patient is nervous/anxious. The patient is not hyperactive. All other systems reviewed are negative Psychiatric Review Of Systems: sleep: no appetite changes: no weight changes: no energy/anergy: no interest/pleasure/anhedonia: no somatic symptoms: no anxiety/panic: no guilty/hopeless: no S.I.B.s/risky behavior: no any drugs: yes alcohol: no Objective: Vitals: 09/22/20 1828 09/23/20 0609 09/23/20 1800 09/24/20 0612 BP: 99/63 (Abnormal) 86/52 97/55 106/69 BP Location: Left arm Right arm Right arm Left arm Patient Position: Sitting Lying Lying Pulse: 94 68 83 65 Resp: 16 16 16 Temp: 36.5 C (97.7 F) 36.5 C (97.7 F) 36.8 C (98.2 F) 36 .6 C (97.9 F) TempSrc: Oral Oral Oral Oral SpO2: 92% 97% 98% 97% Weight: Height: Mental Status Exam: General Appearance: Patient is a short, overweight 35 y.o. female of normal garcia ld who appears the stated age. She has dyed, pulled back, long, brown hair. She has fair hygiene. She is sitting in bed with normal posture.She is dressed in we ather appropriate and casual clothing; long sleeve shirt. Behavior: Attitude: Patient is cooperative. Psychomotor: Patient has normal gait Patient does not have psychomotor agitatio n, psychomotor retardation or abnormal movements. Patient does not exhibit agita tion or restlessness. Eye Contact: Eye contact is appropriate. Patient maintains good eye contact. Speech: Patient's speech is coherent, fluent and spontaneous. Speech quantity: n ormal amount. Rate is normal. Volume is normal. Tone is normal. Affect: Affect is anxious, stable, appropriate and congruent with stated mood. P atient appears to have full range. Thought Process: Thought process is linear, coherent, goal directed and logical. Patient does not have racing thoughts. Thought Content: Patient expresses rumination. Patient does not express passive suicidal ideation, passive homicidal ideation, delusions of grandiosity, somatic delusions and ideas of persecution. Perceptions: Patient is not internally preoccupied. Patient does not have audito ry hallucinations or visual hallucinations. Cognition: Patient is awake and alert and attentive. She is oriented to person, place and time. She appears to have below average intelligence. Recent memory is not intact. Remote memory is not intact. Patient does not show good concentrati on. Insight: Limited Judgement: Limited due to poor compliance with healthcare, delusions Gait: steady Muscle Tone: no rigidity Labs: No results for input(s): NA, K, CL, BICARBONATE, CALCIUM, GLUCOSE, BUN, CREATINI NE, BCR, LABOSMO, PROT, ALBUMIN, TBILI, ALKPHOS, AST, ALT, AGGREGATE, AGRATIO, G FRAA, GFRNONAA in the last 168 hours. Recent Labs Lab 09/18/20 1548 WBCUA 1 No results for input(s): TSH, T3FREE, F3PNCNO, FREET4, B9TXNEA in the last 168 h ours. EK09/22/20 Ventricular Rate: 74 BPM Atrial Rate: 74 BPM P-R Interval: 160 ms QRS Duration: 84 ms Q-T Interval: 418 ms QTC Calculation(Bazett): 463 ms P [place]: 62 degrees R [place]: 39 degrees T [place]: 40 degrees : SINUS RHYTHM NORMAL ECG Assessment and Plan: PSYCHIATRIC DIAGNOSIS: Schizoaffective disorder, bipolar type History of ADHD, PTSD, Anxiety 09/23/2020-Melissa M Come application to [facility] for [facility] (her home catchment area) was sent She has improved overall SW following closely as well. Secondary Diagnosis: 292.84 (F11.24) Opioid use disorder- on MAT (Suboxone) This will be reviewed and modified as appropriate by the treatment team and MD Merna huerta, the attending psychiatrist today. Duration of Face to Face Time (in minutes): 15 Floor Time (in minutes): 25 [x] Greater than 50% of patient time and floor time spent providing counseling and/or coordination of care Counseling provided with: [x] Patient [] Family [] Caregiver [x] Diagnostic results/impressions and/or recommendation studies [x] Risk s and Benefits of Treatment Options [x] Instruction for Management/Treatment and/or Follow-Up [x] Risk Factor Reduction [x] Importance of Compliance with Treatment Options [x] Patient/Family/Caregiver Education [x] Prognosis Coordination of Care provided with: [] Nursing Staff [x] Treatment Team [] Social Work [] Physician(s) [] Family [] Caregiver Justification for Continued Stay: [] A. Continued Danger to Self and/or Others [x] B. Continued behavior intolerable to patient or society [x] C. High probability of A or B recurring if patient were discharged and immin ent re-hospitalization likely [] D. Recovery depends on use of modality, patient unwilling or unable to coop erate [] E. Major change of clinical conditions required extended treatment [] F. Patient has general medical condition requiring hospital care & due to psychiatric aspects, patient cannot be managed as well on non-psych unit [] ALC Alternate Level of Care Chart, medications reviewed. Care coordinated with treatment team. Patient is a 35-year-old lady who carries a diagnosis of schizoaffective disorder, bipolar t ype, polysubstance use disorder, history of PTSD. She had been homeless and stay ing with a male friend temporarily. Patient had been in and out of the hospital , struggling with frequent relapses on mood-altering substances and presenting w ith increasingly psychotic, bizarre, destructive behavior in the community. Dur ing this hospital stay, she had agreed to go to inpatient rehab. We also consid er long-term inpatient hospitalization at [facility]. Patient, however, is not too happy to be considered for a psychiatric hospitalization. "I don't have psychosis, I don't have schizophrenia. I have stress and those people are both ering me and it has been going on for the last 2-1/2 years. Police are investig ating and once they get to the bottom of stuff, then I'll be able to live peacef ully." Though she did not too intensely and forcefully talk about delusional be lieves that her sister and her mom are controlling her life and doing things to jeopardize her health and well-being. She reports that Thorazine has been helpi ng and she is glad that she got back on Thorazine. Patient is attending unit ac tivities and she is participating in unit activities and she seems to be showing improvement. The intensity of her irritability, psychosis, and even the intens ity of her somatic complaint seems to be getting a little bit better. We will f ollow her closely. * Melissa Hodgson RN - 09/24/2020 5:17 AM EDT Received patient care at 2330: Patient appeared to be sleeping throughout the night. Patient remains on 15 min [place] safety checks will continue to monitor for safety. Report given to oncoming shift. * Demetria Soto - 09/23/2020 12:15 PM EDT Occupational Therapy Acute Care Psychiatric Group Note Medical Diagnosis: Suicidal ideation, psychosis Rehabilitation Precautions/Restrictions: Regular adult diet, psychiatry observation Goal Review Visit Number: 6 SUBJECTIVE Patient Report: Pt agreeable to OT group therapy session Pain: Patient has no complaints of pain currently. Pain Medication Today: no. OBJECTIVE Number of Patients Participating in Group: 7 Number of Licensed Providers Involved in the Group: 1 OT Group Category: Patient participated in a structured education and demonstration group session that included the following: Coping skills. Individualized stress management techniques. Individualized communication management techniques. Individualized mindfulness techniques. Individualized relaxation techniques. Social Skills. OT Targeted Impairments: The Occupational Therapy impairments addressed by the structured group included: Impaired coping skills that impact functional independence. Poor insight that impacts functional independence. Impaired attention that impacts functional independence. Decreased social skills that impacts functional independence. Substance use/abuse that impacts functional independence. Delusional thoughts impacts functional independence. Decreased problem solving that impacts functional independence. OT Functional Impairments: Social skills. Communication skills. Emotion regulation skills. Interpersonal relationships. Stress management. Symptom management. Cognitive impairment. Patient participated in a structured education and demonstration group session that included the following: Individualized nutritional education and recommendations. Coping skills. Individualized stress management techniques. Individualized communication management techniques. Individualized mindfulness techniques. Individualized relaxation techniques. Social Skills. Interventions: Group Therapy: Start time of group: 11:20 End time of group: 12:15 Participated in group: 7 Proper nutrition for stress management and wellness The purpose of this group is to: Increase awareness on the impact of food on overall health; prevent chronic disease and worsening of mental health; improve stress management through identifying healthy foods; improve nutrition through meal preparation; reinforce lifestyle changes to improve overall health This patient is in need of these skills. The mental status exam per observation of behavior during group was as follows: Pt presented to group with fair hygiene, dressed in personal clothing. Pt appeared with calm affect. Pt's thought process was tangential. The patient participated in group session as follows: Therapist initiated group with a brief "warm up" activity that required patients to introduce themselves and share their favorite food. Therapist facilitated discussion on the benefits of healthy eating on overall health. Therapist provided members with seeds while group members planted mini pots with soil. Therapist encouraged group members to share how they intend their planted herb into their meals and strategies to incorporate healthy foods into their diet. Therapist reviewed strategies for incorporating healthy eating into their routine, including meal preparation and tips when grocery shopping to help motivate members to form new healthy habits. By virtue of this participation, patient has demonstrated the following improvement or lack thereof: stress management, self-care, interpersonal skills, This change has facilitated progress toward attainment of treatment plan goals and objectives ASSESSMENT Response to Visit: The session was tolerated well. Pt arrived to group therapy session on time and stayed for duration of session. Pt was appropriate and cooperative throughout. Pt participated in activity and provided insightful contributions to discussions as she identified stress eating as a trigger to stress, as well as strategies she plans to implement after discharge to live a more healthier lifestyle. Pt continues to provide excessive detail in her responses. Compared to previous sessions, pts did not require verbal redirection and demonstrated attentive behavior. Pain: Patient has no complaints of pain currently. Goal review: Pt is progressing towards identifying triggers of stress, attending group sessions and demonstrating attentive behavior, and identifying coping skills. Pt was appropriate and attentive throughout. Pt contributed to discussion as she identified stress eating as a trigger to stress. PLAN Treatment Frequency, Duration and Interventions: Restorative Occupational Therapy recommended for 5x/wk for 2wks Treatment is to include: Development of Cognitive Skills. Self Care/Home Management. Therapeutic Activity. Therapeutic Exercise. Group Therapeutic Procedure. Development of Plan of Care: Participants included: Patient. Discharge Planning: not applicable. Visit Number: Today's visit is number 6 Program: Psych SESSION: Duration: 55 CHARGES: [id number] - CHARGE - OT GROUP (2 OR MORE) 4 Units - ORDER - Occupational Therapy Treatment 1 Units - Psych Visit 1 Units Total treatment minutes: 55.00 Minutes Electronically Signed by: Demetria Soto, Student OT, 09/23/2020 2:34:00 PM - CoSigned By: Isa Bennett OTR/L, 09/23/2020 2:38:36 PM * Kathia Abdi - 09/23/2020 10:34 AM EDT Sent Mar & notes to [facility] Psych referral. * Hollie Amador LCSW - 09/23/2020 10:15 AM EDT 09/23/20 1015 Social Work Productivity Referral Type Psychiatric Time Spent (minutes) 20 SW completed the psychosocial section of the IRF and notified Care Coordination to send it in to [facility]. [facility] will follow. * Ketty Alcala MD - 09/23/2020 10:07 AM EDT PSY Progress Note Subjective: CC: "I wanted the mason tender restoration labor to pick these people up for what they did, I don't need a psychiatric fontana, I'm doing God's work" Interval history: Melissa Lee met with treatment team. Pressured speech and oft en somatic focus. Overall her anger of the situation, referral to [facility] lessened. Melissa often speaks of Liberty Yanor, at [facility], her zainab darrel staff. Melissa Lee asks to increase the gabapentin to 600 mg dosing. And she is in agreement with the increased thorazine at night, starts 100 mg nightl y. When she is speaking spontaneously has flight of ideas. Somatically focused ongo ing with multiple referrals request. Does indicate no current PCP or phone. States she did well on thorazine 100 mg with benadryl 100 mg both BID. And that cogentin wasn't strong enough to prevent a side effect. But was on this combinat ion for 6 years and did well. Melissa states "voices are gone". And she asks about Carafate. Melissa Lee sleep "good". And nursing notes indicate she sleeps well every night. Without hesitation states "people should be worried about me, peo ple are throwing chemicals on me, trying to hurt me, this shit is really happeni burt, 2 and a half years". And gives a run-on of family sexual and financial thoughts. Melissa has had a headache yesterday, tolerating tylenol without issue. Melissa Lee is medication adherent. The cogentin is prn, uses 1-2 times a day. And prn catapres use is approximately every 2 days. No use of hydroxyzine since 09/19/20. And limited use of NRT. She does use the trazodone prn almost every nig ht. Patient Active Problem List Diagnosis Date Noted Mood disorder 08/25/2020 Seizure 08/07/2020 Substance abuse 08/07/2020 Suicidal ideation 08/06/2020 Allergies: Allergies Allergen Reactions Dextroamphetamine Haldol [Haloperidol] Penicillins Sulfamethoxazole Trimethoprim Ziprasidone Scheduled Med's: buprenorphine-naloxone 2 Film Sublingual Daily chlorproMAZINE 25 mg Oral BID chlorproMAZINE 50 mg Oral Nightly citalopram 10 mg Oral Daily gabapentin 400 mg Oral TID levETIRAcetam 1,000 mg Oral BID Continuous Infusions: PRN Med's:.acetaminophen (TYLENOL) tablet, benztropine, bisacodyl, cloNIDine, do cusate sodium, hydroxzine, magnesium hydroxide, nicotine, senna, trazodone Review Of Systems: Medical Review Of Systems: Review of Systems Constitutional: Negative. Negative for fatigue. Respiratory: Negative. Cardiovascular: Negative. Neurological: Positive for headaches. Psychiatric/Behavioral: Negative for confusion, decreased concentration, dysphor ic mood, hallucinations, self-injury, sleep disturbance and suicidal ideas. The patient is not hyperactive. All other systems reviewed are negative Psychiatric Review Of Systems: sleep: no appetite changes: no weight changes: no energy/anergy: no interest/pleasure/anhedonia: no somatic symptoms: no anxiety/panic: no guilty/hopeless: no S.I.B.s/risky behavior: no any drugs: yes alcohol: no Objective: . Vitals: 09/21/20 1957 09/22/20 0648 09/22/20 1828 09/23/20 0609 BP: 91/55 109/73 99/63 (Abnormal) 86/52 Pulse: 96 72 94 68 Resp: 17 18 16 16 Temp: 36.6 C (97.9 F) 36.5 C (97.7 F) 36.5 C (97.7 F) SpO2: 96% 99% 92% 97% Mental Status Exam: .General Appearance: Patient is a short, average weight 35 y.o. female of [place] build who appears the stated age. She has dyed, pulled back, long, brown hair. She has fair hygiene. She is sitting in a chair with normal posture.She is dres sed in weather appropriate and casual clothing; long sleeve shirt. Behavior: Attitude: Patient is cooperative, evasive and labile. Psychomotor: Patient has normal gait Patient does not have psychomotor agitatio n, psychomotor retardation or abnormal movements. Patient does not exhibit agita tion or restlessness. Eye Contact: Eye contact is appropriate. Patient maintains good eye contact. Speech: Patient's speech is coherent, fluent and spontaneous. Speech quantity: v oluble. Rate is decreased latency and pressured. Volume is loud. Tone is increas ed. Affect: Affect is elevated, irritable, labile, inappropriate and congruent with stated mood. Patient appears expansive with full range. Thought Process: Thought process is disorganized and tangential. Patient has rac ing thoughts. Thought Content: Patient expresses delusions of grandiosity, somatic delusions a nd ideas of persecution. Patient does not express passive suicidal ideation and passive homicidal ideation. Perceptions: Patient is not internally preoccupied. Patient does not have audito ry hallucinations or visual hallucinations. Cognition: Patient is awake and alert and attentive. She is oriented to person, place and time. She appears to have below average intelligence. Recent memory is not intact. Remote memory is not intact. Patient does not show good concentrati on. Insight: Impaired due to acuity of illness Judgement: Impaired due to poor compliance with healthcare, delusions Gait: steady Muscle Tone: no rigidity Labs: . Recent Labs Lab 09/17/20 0710 NA 138 K 4.2 CL 101 BICARBONATE 27 CALCIUM 9.3 GLUCOSE 115 BUN 13 CREATININE 0.66 BCR 20 PROT 6.5 ALBUMIN 4.0 TBILI <0.2 ALKPHOS 59 AST 16 ALT 13 GFRAA >90 GFRNONAA >90 Recent Labs Lab 09/17/20 0710 09/18/20 1548 HCT 37.5 -- HGB 12.5 -- MCH 29.2 -- MCHC 33.3 -- MCV 87.8 -- PLT 261 -- RDW 14.0 -- WBCUA -- 1 WBC 4.6 -- Recent Labs Lab 09/17/20 0710 TSH 1.400 EK09/22/20 Ventricular Rate: 74 BPM Atrial Rate: 74 BPM P-R Interval: 160 ms QRS Duration: 84 ms Q-T Interval: 418 ms QTC Calculation(Bazett): 463 ms P [place]: 62 degrees R [place]: 39 degrees T [place]: 40 degrees : SINUS RHYTHM NORMAL ECG Assessment and Plan: Pt is a 35 year old female with past psychiatric history significant f or polysubstance abuse, schizoaffective disorder bipolar type, was presented to Er with acute psychosis and delusions about missing her daughter, complain about her family, paranoid feelings about other people who ""robert her as cat" etc. I nitially, she was presented to [facility] ED with same presentation. After being d ischarge form ED she refuse to leave hospital and became angry and agitated. Tomer onel was involved. Because, she does not likes to leave property, she stated that she as SI. Pt was transferred to ED at [facility]. PSYCHIATRIC DIAGNOSIS: Schizoaffective disorder, bipolar type History of ADHD, PTSD, Anxiety Melissa Diaz Come application to [facility] (her home catchment area) SW following closely as well. 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 Duration of Face to Face Time (in minutes): 30 Floor Time (in minutes): 1 5 [x] Greater than 50% of patient time and floor time spent providing counseling and/or coordination of care Counseling provided with: [x] Patient [] Family [] Caregiver [] Diagnostic results/impressions and/or recommendation studies [] Risks and Benefits of Treatment Options [] Instruction for Management/Treatment and/or Follow-Up [] Risk Factor Reduction [x] Importance of Compliance with Treatment Options [x] Patient/Family/Caregiver Education [] Prognosis Coordination of Care provided with: [] Nursing Staff [x] Treatment Team [] Social Work [] Physician(s) [] Family [] Caregiver Justification for Continued Stay: [] A. Continued Danger to Self and/or Others [x] B. Continued behavior intolerable to patient or society [x] C. High probability of A or B recurring if patient were discharged and immin ent re-hospitalization likely [] D. Recovery depends on use of modality, patient unwilling or unable to coop erate [] E. Major change of clinical conditions required extended treatment [] F. Patient has general medical condition requiring hospital care & due to psychiatric aspects, patient cannot be managed as well on non-psych unit [] [facility] Alternate Level of Care Chart, medication reviewed. Care coordinated with treatment team. The patient is a 35-year-old lady who was seen this morning for more than 30 minutes to help her understand the treatment plan and the recommendation regarding long-term ca re hospital. Patient was noted to be quite koch, irritable, and exhibiting mor e thought disorganization and expressing various delusional and bizarre ideas th at people were throwing gasoline at her, chemical at her, her mom was stealing f rom her, and her mom and sister were conspiring to make her sick. She continued to have various somatic concerns, making bizarre claims that even when she was not using intravenous opoid, she had several episodes of becoming unresponsive a nd she was rescued by Narcan. She carries diagnosis of schizoaffective disorder , bipolar type; polysubstance dependence, including opioid stimulant; and a hist ory of PTSD. The last several months, she had been struggling with frequent, of ten daily visit to local emergency department, relapsing on mood-altering substa nces, and not being able to function in the community. Multiple attempts to sta bilize her condition in acute inpatient psychiatric hospital had not resulted a level of stability that patient could be successfully transitioned to community. I tried to explain to her that given her history, considering a long-term hosp italization was a reasonable option. The patient reports that she needs better housing, and she needs her sister and her mom and other people to stop bothering her, that somehow they interfere with her ability to get her medication, and pe ople need to leave her alone. " I was agreeable to go to inpatient rehab to [facility] e the police another chance, so they could work on my case and get those crimina l elements to stop bothering me, and I can get along because I have a huge lawsu it, and then I could buy a house." I discussed increasing her Thorazine. She w as agreeable to let us increase her Thorazine to 100 mg at nighttime. During th e interview, patient was noted to be quite labile, crying at times. Other times she was quite loud, angry, and using cursing language, cursing using the F word every word or every other word. We will keep her on frequent checks. * Ketty Alcala MD - 09/22/2020 2:57 PM EDT PSY Progress Note Subjective: CC: "I am attending all the groups I believe need to see neurologist skin doctor cancer doctor orthopedic doctor I do not have a primary care physician" HPI: Patient continued to be making progress, her less disorganized less irritab le though remain paranoid and delusional is very days had multiple somatic compl aints and concerns including complaining of her worries bothering her cyst on he r cervix and uterine discomfort migraine headache skin issue eye problem and the list goes on and on Melissa Lee met with [place] team. Initially she is focused on interview, answerin g questions without issue. When she is speaking spontaneously has flight of idea s. Somatically focused ongoing with multiple referrals request. Does indicate no current PCP or phone. States she did well on thorazine 100 mg with benadryl 100 mg both BID. And that cogentin wasn't strong enough to prevent a side effect. But was on this combinat ion for 6 years and did well. Melissa states "voices are gone". And she asks about Carafate. Melissa Lee sleep "good". And nursing notes indicate she sleeps well every night. Without hesitation states "people should be worried about me, peo ple are throwing chemicals on me, trying to hurt me, this shit is really happeni burt, 2 and a half years". And gives a run-on of family sexual and financial thoughts. Melissa has had a headache yesterday, tolerating tylenol without issue. Melissa Lee is medication adherent. The cogentin is prn, uses 1-2 times a day. And prn catapres use is approximately every 2 days. No use of hydroxyzine since 09/19/20. And limited use of NRT. She does use the trazodone prn almost every nig ht. Patient Active Problem List Diagnosis Date Noted Mood disorder 08/25/2020 Seizure 08/07/2020 Substance abuse 08/07/2020 Suicidal ideation 08/06/2020 Allergies: Allergies Allergen Reactions Dextroamphetamine Haldol [Haloperidol] Penicillins Sulfamethoxazole Trimethoprim Ziprasidone Scheduled Med's: buprenorphine-naloxone 2 Film Sublingual Daily chlorproMAZINE 25 mg Oral BID chlorproMAZINE 50 mg Oral Nightly citalopram 10 mg Oral Daily gabapentin 400 mg Oral TID levETIRAcetam 1,000 mg Oral BID Continuous Infusions: PRN Med's:.acetaminophen (TYLENOL) tablet, benztropine, bisacodyl, cloNIDine, do cusate sodium, hydroxzine, magnesium hydroxide, nicotine, senna, trazodone Review Of Systems: Medical Review Of Systems: Review of Systems Constitutional: Negative. Eyes: Positive for visual disturbance. Respiratory: Negative. Cardiovascular: Negative. Gastrointestinal: Positive for abdominal pain. Genitourinary: Positive for flank pain, pelvic pain and vaginal pain. Neurological: Positive for headaches. Psychiatric/Behavioral: Positive for behavioral problems. Negative for confusion , decreased concentration, dysphoric mood, hallucinations, self-injury, sleep di sturbance and suicidal ideas. The patient is nervous/anxious. The patient is not hyperactive. All other systems reviewed are negative Psychiatric Review Of Systems: sleep: no appetite changes: no weight changes: no energy/anergy: no interest/pleasure/anhedonia: no somatic symptoms: no anxiety/panic: no guilty/hopeless: no S.I.B.s/risky behavior: no any drugs: yes alcohol: no Objective: . Vitals: 09/20/20 1815 09/21/20 0634 09/21/20 1957 09/22/20 0648 BP: (!) 88/55 101/65 91/55 109/73 Pulse: 72 66 96 72 Resp: 18 18 17 18 Temp: 36.3 C (97.3 F) 36.4 C (97.5 F) 36.6 C (97.9 F) SpO2: 97% 99% 96% 99% Mental Status Exam: .General Appearance: Patient is a short, average weight 35 y.o. female of [place] build who appears the stated age. She has dyed, pulled back, long, brown hair. She has fair hygiene. She is sitting in a chair with normal posture.She is dres sed in a hospital gown dressed in weather appropriate clothing. Behavior: Attitude: Patient is cooperative. Psychomotor: Patient has normal gait Patient does not have psychomotor agitatio n, psychomotor retardation or abnormal movements. Patient does not exhibit agita tion or restlessness. Eye Contact: Eye contact is appropriate. Patient maintains good eye contact. Speech: Patient's speech is coherent, fluent and spontaneous. Speech quantity: v oluble. Rate is rapid. Volume is normal. Tone is normal. Mood: Patient's mood is OK; "Ok". Affect: Affect is anxious, stable, inappropriate and congruent with stated mood. Patient appears to have full range. Thought Process: Thought process is coherent, disorganized, tangential and logic al. Thought Content: Patient expresses delusions of persecution and delusions of gra ndiosity. Patient does not express passive suicidal ideation and passive homicid al ideation. Perceptions: Patient is not internally preoccupied. Patient does not have audito ry hallucinations or visual hallucinations. Cognition: Patient is awake and alert and attentive. She is oriented to person, place and time. She appears to have below average intelligence. Recent memory is not intact. Remote memory is not intact. She shows good concentration. Insight: Poor Judgement: Poor Gait: steady Muscle Tone: no rigidity Labs: . Recent Labs Lab 09/17/20 0710 NA 138 K 4.2 CL 101 BICARBONATE 27 CALCIUM 9.3 GLUCOSE 115 BUN 13 CREATININE 0.66 BCR 20 PROT 6.5 ALBUMIN 4.0 TBILI <0.2 ALKPHOS 59 AST 16 ALT 13 GFRAA >90 GFRNONAA >90 Recent Labs Lab 09/17/20 0710 09/18/20 1548 HCT 37.5 -- HGB 12.5 -- MCH 29.2 -- MCHC 33.3 -- MCV 87.8 -- PLT 261 -- RDW 14.0 -- WBCUA -- 1 WBC 4.6 -- Recent Labs Lab 09/17/20 0710 TSH 1.400 EKG: came from [facility] over the weekend, no EPIC results Assessment and Plan: Pt is a 35 year old female with past psychiatric history significant f or polysubstance abuse, schizoaffective disorder bipolar type, was presented to Er with acute psychosis and delusions about missing her daughter, complain about her family, paranoid feelings about other people who ""robert her as cat" etc. I nitially, she was presented to [facility] ED with same presentation. After being d ischarge form ED she refuse to leave hospital and became angry and agitated. Tomer onel was involved. Because, she does not likes to leave property, she stated that she as SI. Pt was transferred to ED at [facility]. PSYCHIATRIC DIAGNOSIS: Schizoaffective disorder, bipolar type History of ADHD, PTSD, Anxiety Melissa M Come potential for violence. Please DO NOT discuss any possible discharge plans with Melissa. Details as above, current LOS=11. [facility]. SW following closely as well. 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 Duration of Face to Face Time (in minutes):: 20 Floor Time (in minutes ): 15 with the referral to [facility] [x] Greater than 50% of patient time and floor time spent providing counseling and/or coordination of care Counseling provided with: [x] Patient [] Family [] Caregiver [] Diagnostic results/impressions and/or recommendation studies [] Risks and Benefits of Treatment Options [] Instruction for Management/Treatment and/or Follow-Up [] Risk Factor Reduction [x] Importance of Compliance with Treatment Options [x] Patient/Family/Caregiver Education [] Prognosis Coordination of Care provided with: [] Nursing Staff [x] Treatment Team [] Social Work [] Physician(s) [] Family [] Caregiver Justification for Continued Stay: [] A. Continued Danger to Self and/or Others [x] B. Continued behavior intolerable to patient or society [x] C. High probability of A or B recurring if patient were discharged and immin ent re-hospitalization likely [] D. Recovery depends on use of modality, patient unwilling or unable to coop erate [] E. Major change of clinical conditions required extended treatment [] F. Patient has general medical condition requiring hospital care & due to psychiatric aspects, patient cannot be managed as well on non-psych unit [] [facility] Alternate Level of Care Chart, medications reviewed. Care coordinated with treatment team. The patient was seen this morning she was noted to be calmer, making various del usional and paranoid statements The patient remained delusional that her mom and sister had been controlling her life, stealing her medication, stealing her mon ey, and stealing her boyfriend. She also had various somatic concerns and delus ion. Keeps saying that she needs an eye doctor and urologist, stomach doctor, h ematologist, oncologist, skin doctor, a port captain, and a primary care p hysician. "I have missed appointment with all the local doctors there, and they will not take me, so I had to find a new doctor someplace else." She reported that someone was throwing chemicals at her, that is why she had been struggling with anxiety, irritability, and so many hospitalization, and that the hospitals and the police are not helping, and doing nothing for her, and she had been in a nd out of the hospital multiple times over the last 2-1/2 years." I have been d ependent on heroin for more than 20 years, and I need Adderall, I need stimulant s to go to sleep. The downers make me hyper, and the uppers make me down, and i f I could get Adderall, then I will not be using cocaine and crystal meth." The patient reported that voices had been calmer. She indicated that she had been on Thorazine 100 mg twice a day, along with Benadryl 100 mg twice a day in the p ast for number of years, which she finds helpful. DIAGNOSTIC IMPRESSION: History of schizoaffective disorder, bipolar type, nonadherence with treatment. Polysubstance dependence including opiate, cocaine, crystal meth. PLAN OF TREATMENT: Continue Suboxone. She will be a good candidate for methadone clinic to improve compliance, and we are exploring long-term hospitalization for her to see if th at will help provide some level of stability. Patient was reporting improvement in sleep and tolerating Thorazine 50 mg at bedtime without EPS. Will continue the same. * Demetria Soto - 09/22/2020 11:53 AM EDT Occupational Therapy Acute Care Psychiatric Group Note Medical Diagnosis: Suicidal ideation, psychosis Rehabilitation Precautions/Restrictions: Regular adult diet, psychiatry observation Goal Review Visit Number: 5 SUBJECTIVE Patient Report: Pt agreeable to OT group therapy session Pain: Patient has no complaints of pain currently. Pain Medication Today: no. OBJECTIVE Number of Patients Participating in Group: 8 Number of Licensed Providers Involved in the Group: 1 OT Group Category: Patient participated in a structured education and demonstration group session that included the following: Coping skills. Individualized stress management techniques. Individualized communication management techniques. Individualized mindfulness techniques. Individualized relaxation techniques. Social Skills. Patient participated in an upper extremity exercise structured group session. All upper extremity muscle groups were targeted by the group. The activities that the patient participated in during the group included: Taught patient range of motion exercises. OT Targeted Impairments: The Occupational Therapy impairments addressed by the structured group included: Poor insight that impacts functional independence. Impaired attention that impacts functional independence. Decreased social skills that impacts functional independence. Aggressive behavior that impacts functional independence. Substance use/abuse that impacts functional independence. Delusional thoughts impacts functional independence. Decreased social support impacts functional independence. Knowledge of how homelessness impacts functional independence. Decreased problem solving that impacts functional independence. OT Functional Impairments: Social skills. Communication skills. Emotion regulation skills. Interpersonal relationships. Stress management. Symptom management. Cognitive impairment. Patient participated in a structured education and demonstration group session that included the following: Coping skills. Individualized stress management techniques. Individualized communication management techniques. Individualized mindfulness techniques. Individualized relaxation techniques. Social Skills. Patient participated in an upper extremity exercise structured group session. All upper extremity muscle groups were targeted by the group. The activities that the patient participated in during the group included: Taught patient range of motion exercises. Interventions: Group Therapy: Start time: 11:10 End time: 11:53 Participated in group: 8 Exercise and stretch group The purpose of this group is to: improve attention and focus through movement; improve self-esteem; increase mood; decrease mental health symptoms; improve stress management skills; improve coordination and balance; promote mindfulness and relaxation; improve social skills; increase knowledge on the benefits of movement; improve overall well being The patient is need of these skills The mental status exam per observation of behavior during group was as follows: Pt presented to group with fair hygiene, dressed in personal clothing. Pt appeared with euthymic affect. Pt's thought process was clear and linear. The mental status exam per observation is as follows: Therapist initiated group with check in and ice breaker activity. Therapist provided education on the benefits of exercise/movement on the body and mind. Therapist guided members through a series of stretches in preparation for aerobic based activity. Therapist guided members through chair exercises, as well as provided members with modifications and challenges as a way to upgrade and downgrade the activity. After, therapist guided members with a ?cool down? through a stretch and deep breathing routine. Therapist provided education on proper stretch and breathing technique to further promote wellness. Patient able to follow therapist directed stretch routine with no verbal encouragement or redirection. By virtue of this participation, the patient has demonstrated the following improvement or lack thereof: Self awareness, self esteem, coping skills, communication skills, interpersonal skills, symptom management, stress management. ASSESSMENT Response to Visit: The session was tolerated well. Pt presented to group on time and stayed for duration of session. Pt participated in full exercise routine and discussion, stating walking as her favorite exercise. However, pt required min redirection during group discussion as pt started to feed into peer's inappropriate comments. Pt responded to redirection. Pt stated at end of session that she enjoyed exercising and felt better after exercise. Pain: Patient has no complaints of pain currently. Goal review: Pt is progressing towards identifying triggers of stress, attending group sessions, and identifying coping skills through participation and education in the benefits of exercise. PLAN Treatment Frequency, Duration and Interventions: Restorative Occupational Therapy recommended for 5x/wk for 2wks Treatment is to include: Development of Cognitive Skills. Self Care/Home Management. Therapeutic Activity. Therapeutic Exercise. Group Therapeutic Procedure. Development of Plan of Care: Participants included: Patient. Discharge Planning: not applicable. Visit Number: Today's visit is number 5 Program: Psych SESSION: Duration: 43 CHARGES: - ORDER - Occupational Therapy Treatment 1 Units 23219 - CHARGE - OT GROUP (2 OR MORE) 3 Units - Psych Visit 1 Units Total treatment minutes: 43.00 Minutes Electronically Signed by: Demetria Soto, Student OT, 09/22/2020 4:04:39 PM - CoSigned By: Isa Bennett OTR/Kori, 09/22/2020 4:05:16 PM * Can Salas - 09/22/2020 11:42 AM EDT Spiritual Care Progress Note Spanish Medical Interpreter: Deacon Can Rodriguez Patient Name: Melissa Lee Age: 35 y.o. Sex: female Room/Bed: [facility]/ [facility] Affiliation/Tradition: Muslim Admit Date: 09/11/2020 Referrals: Referral From: Recreational Therapy Referral To: [facility] Spanish Medical Interpreter Contact Information: Martin/1974 Spiritual Care Assessment Spouse/Significant Other Name/Relationship: None Assessed Need for Visit: Adjustment/Coping Issues, Mental Health Issues, Spirit ual Companionship Patient Description: Altered Mental Status (AMS), Calm, Accepting, At Peace, Ho pe-filled Spiritual/Cultural/Social Issues Assessment: Melissa participated in the Spiritua l Care Session. Spiritual Care Intervention: Mallory, Explore/Affirm Bianca, Identify/Encourage Coping, Prayer, Provide for Emotional Exp/Share Story, Spiritual Counseling, Sebastian pportive Listening Spiritual Outcomes - Patient: Expressed feelings, [place] comforted, accompanied, [place] heard, valued, affirmed Spiritual Outcomes - Family: Not available for assessment Spiritual Care Plan Goals of Care: Identify and support relationship with [facility]. Outcome: Spiritual Care Follow Up Patient Follow-up Plan: Routine visit Family Follow-up Plan: No contact made at this time * Nora Escobar GN - 09/21/2020 10:09 PM EDT RN Shift Report: Report received at 1900 from previous RN. Patient visible in da y room at start of shift. She attended unit group activities. States her mood is "ok" with even affect. Denies SI/HI/AVH and agrees to approach staff if feeling unsafe. She c/o right ankle pain. States her ankle is broken. She also c/o vagi nal discomfort. States she believes it is her ovary that is causing the pain. Sh e states she has asked for a gynecological exam. Patient received PRN Tylenol fo r 10/10 pain with no effect. She was given an ice pack. Provider made aware. She also received a one time dose of ibuprofen with mild effect. Patient accepted a ll scheduled medications. She appeared calm while watching television with peers . Patient attends to ADLs independently and remains on 15 minute checks per prot ocol. Educated and encouraged to wear a face mask and denies S/S COVID-19. Will continue to monitor and provide for safety. Patient appeared to be sleeping throughout the night. * Mirella Spears RN - 09/21/2020 8:30 PM EDT RN Shift Note ([id number]): Took over pt care at 1500. Pt attending group in dayr oom at start of shift. Reports her mood is "ok." Affect flat. Spent most of shif t sleeping in her room. No safety concerns expressed. No DTS/DTO behaviors obser beverly. Ate dinner. Safety checks maintained. Report passed to oncoming RN. * Demetria Doran RN - 09/21/2020 2:04 PM EDT Case Management Screen & Assessment Patient Name: Melissa Lee Gender: female Date of : 1985 Admission Dx: Suicidal ideation [R45.851] Age: 35 y.o. Admission: 09/11/2020 3:40 PM Attending Provider: Ketty Alcala MD High Risk Criteria - Prior to Admission/Upon Arrival GRAY TENDER-Type of Residence: Homeless GRAY TENDER- Home Care Services: No Limited Home Supports/Lives Alone?: (homeless) Multi trauma/Critical care/Step down admit?: No Head/Spinal cord injury?: No Self Pay: No Multiple ED visits?: No Related/Unplanned readmission within 30 days?: Yes Complex/New medical issues: SI Relevant comorbidities: Polysubstance abuse, Schizoaffective disorder Bipolar Ty pe, ADHD, PTSD, anxiety Psychosocial considerations: is homeleaa and independent Screening Outcome Social Work Consult Needed?: Yes Further Case Management Needs?: No Case Management Needs Chart Review PCP Verified?: Patient has PCP Prior to Admission: Functional/Environmental Assessment Bathing: Independent Dressing: Independent Toileting: Independent Medication administration: Unable to assess Transfers: Independent Ambulation: Independent Meal preparation: Independent Prior to Admission: Support Services Community CM/TLS (Name & Phone): Active with Genaro Hodges,Commercial Real Estate Agent,[phone], at [facility], . Above agencies notified about Admission?: Yes Case Management Re-Review Case Management Re-Review Needed?: No Discharge Planning Living Arrangements: Alone Support Systems: Friends/neighbors Patient/family informed of need for discharge planning?: Yes Patient expects to be discharged to:: psych facility, LTC Does the patient need discharge transport arranged?: Yes Note: Reviewed updates and discussed in am rounds. Admitted for SI as a transfer from [facility]. CM screen completed by chart review. She is homeless and independent with ADL's. PCP with [facility]. Active with Genaro Hodges,Commercial Real Estate Agent,, at [facility], . The discharge plan is for LT psych facility, and referral process initiated wit [facility].CM to follow for discharge planning needs. Demetria Doran * Hollie Amador LCSW - 09/21/2020 11:32 AM EDT 09/21/20 1132 Social Work Productivity Referral Type Psychiatric Time Spent (minutes) 20 SW met with patient with the treatment team. She was disorganized, hyperverbal w ith bizarre ideas. Patient rambled on for 20 minutes with very little opportunit y to redirect. Patient will be referred to the [facility] f or further treatment and the application is currently being completed. * Ketty Alcala MD - 09/21/2020 11:15 AM EDT PSY Progress Note Subjective: CC: "my mom is making it impossible to get a referral" HPI: Melissa Diaz Come met with [place] team. Initially she is focused on interview, answ ering questions without issue. When she is speaking spontaneously has flight of ideas. Somatically focused ongoing with multiple referrals request. Does aldent tai no current PCP or phone. States she did well on thorazine 100 mg with benadryl 100 mg both BID. And that cogentin wasn't strong enough to prevent a side effect. But was on this combinat ion for 6 years and did well. Melissa states "voices are gone". And she asks about Carafate. Melissa Diaz Come sleep "good". And nursing notes indicate she sleeps well every night. Without hesitation states "people should be worried about me, peo ple are throwing chemicals on me, trying to hurt me, this shit is really happeni ng, 2 and a half years". And gives a run-on of family sexual and financial thoughts. Melissa has had a headache yesterday, tolerating tylenol without issue. Melissa Lee is medication adherent. The cogentin is prn, uses 1-2 times a day. And prn catapres use is approximately every 2 days. No use of hydroxyzine since 09/19/20. And limited use of NRT. She does use the trazodone prn almost every nig ht. Patient Active Problem List Diagnosis Date Noted Mood disorder 08/25/2020 Seizure 08/07/2020 Substance abuse 08/07/2020 Suicidal ideation 08/06/2020 Allergies: Allergies Allergen Reactions Dextroamphetamine Haldol [Haloperidol] Penicillins Sulfamethoxazole Trimethoprim Ziprasidone Scheduled Med's: buprenorphine-naloxone 2 Film Sublingual Daily chlorproMAZINE 25 mg Oral TID citalopram 10 mg Oral Daily gabapentin 400 mg Oral TID levETIRAcetam 1,000 mg Oral BID Continuous Infusions: PRN Med's:.acetaminophen (TYLENOL) tablet, benztropine, bisacodyl, cloNIDine, do cusate sodium, hydroxzine, magnesium hydroxide, nicotine, senna, trazodone Review Of Systems: Medical Review Of Systems: Review of Systems Constitutional: Negative. Respiratory: Negative. Cardiovascular: Negative. Psychiatric/Behavioral: Positive for behavioral problems. Negative for confusion , decreased concentration, dysphoric mood, hallucinations, self-injury, sleep di sturbance and suicidal ideas. The patient is nervous/anxious. The patient is not hyperactive. All other systems reviewed are negative Psychiatric Review Of Systems: sleep: no appetite changes: no weight changes: no energy/anergy: no interest/pleasure/anhedonia: no somatic symptoms: no anxiety/panic: no guilty/hopeless: no S.I.B.s/risky behavior: no any drugs: yes alcohol: no Objective: . Vitals: 09/20/20 0825 09/20/20 1600 09/20/20 1815 09/21/20 0634 BP: 100/67 (Abnormal) 88/55 (Abnormal) 88/55 101/65 Pulse: 85 74 72 66 Resp: 16 16 18 18 Temp: 36.5 C (97.7 F) 36.3 C (97.3 F) 36.4 C (97.5 F) SpO2: 96% 97% 97% 99% Mental Status Exam: .General Appearance: Patient is a short, average weight 35 y.o. female of [place] l build who appears the stated age. She has dyed, pulled back, long, brown hair. She has fair hygiene. She is sitting in a chair with normal posture.She is dres sed in a hospital gown. Behavior: Attitude: Patient is cooperative. Psychomotor: Patient has normal gait Patient does not have psychomotor agitatio n, psychomotor retardation or abnormal movements. Patient does not exhibit agita tion or restlessness. Eye Contact: Eye contact is appropriate. Patient does not maintain good eye con tact. Speech: Patient's speech is coherent, fluent and spontaneous. Speech quantity: v oluble. Rate is rapid. Volume is normal. Tone is normal. Mood: Patient's mood is OK Affect: Affect is anxious, stable, inappropriate and congruent with stated mood. Patient appears to have full range. Thought Process: Thought process is coherent, disorganized and logical. Thought Content: Patient expresses delusions of persecution and delusions of gra ndiosity. Patient does not express passive suicidal ideation and passive homicid al ideation. Perceptions: Patient is not internally preoccupied. Patient does not have audito ry hallucinations or visual hallucinations. Cognition: Patient is awake and alert and attentive. She is oriented to person a nd place. She appears to have below average intelligence. Recent memory is not i ntact. Remote memory is not intact. She shows good concentration. Insight: Poor Judgement: Poor Gait: steady Muscle Tone: no rigidity Labs: . Recent Labs Lab 09/17/20 0710 NA 138 K 4.2 CL 101 BICARBONATE 27 CALCIUM 9.3 GLUCOSE 115 BUN 13 CREATININE 0.66 BCR 20 PROT 6.5 ALBUMIN 4.0 TBILI <0.2 ALKPHOS 59 AST 16 ALT 13 GFRAA >90 GFRNONAA >90 Recent Labs Lab 09/17/20 0710 09/18/20 1548 HCT 37.5 -- HGB 12.5 -- MCH 29.2 -- MCHC 33.3 -- MCV 87.8 -- PLT 261 -- RDW 14.0 -- WBCUA -- 1 WBC 4.6 -- Recent Labs Lab 09/17/20 0710 TSH 1.400 EKG: came from [facility] over the weekend, no EPIC results Assessment and Plan: Pt is a 35 year old female with past psychiatric history significant f or polysubstance abuse, schizoaffective disorder bipolar type, was presented to Er with acute psychosis and delusions about missing her daughter, complain about her family, paranoid feelings about other people who ""robert her as cat" etc. I nitially, she was presented to [facility] ED with same presentation. After being d ischarge form ED she refuse to leave hospital and became angry and agitated. Tomer onel was involved. Because, she does not likes to leave property, she stated that she as SI. Pt was transferred to ED at [facility]. PSYCHIATRIC DIAGNOSIS: Schizoaffective disorder, bipolar type History of ADHD, PTSD, Anxiety Melissa M Come potential for violence. Please DO NOT discuss any possible discharge plans with Melissa. Details as above, current LOS=10. Will complete the application to [facility] for continued stabilization today. SW following closely as well. 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 Duration of Face to Face Time (in minutes):: 20 Floor Time (in minutes ): 60 with the referral to [facility] [x] Greater than 50% of patient time and floor time spent providing counseling and/or coordination of care Counseling provided with: [x] Patient [] Family [] Caregiver [] Diagnostic results/impressions and/or recommendation studies [] Risks and Benefits of Treatment Options [] Instruction for Management/Treatment and/or Follow-Up [] Risk Factor Reduction [x] Importance of Compliance with Treatment Options [x] Patient/Family/Caregiver Education [] Prognosis Coordination of Care provided with: [] Nursing Staff [x] Treatment Team [] Social Work [] Physician(s) [] Family [] Caregiver Justification for Continued Stay: [] A. Continued Danger to Self and/or Others [x] B. Continued behavior intolerable to patient or society [x] C. High probability of A or B recurring if patient were discharged and immin ent re-hospitalization likely [] D. Recovery depends on use of modality, patient unwilling or unable to coop erate [] E. Major change of clinical conditions required extended treatment [] F. Patient has general medical condition requiring hospital care & due to psychiatric aspects, patient cannot be managed as well on non-psych unit [] ALC Alternate Level of Care Chart, medications reviewed. Care coordinated with treatment team. The patient was seen this morning she was noted to be irritable, angry, making v arious delusional and paranoid statements. She reports that she had been upset because the phone got disconnected, and she was trying to get her address situat ed and get her mail sent to a safe place. The patient remained delusional that her mom and sister had been controlling her life, stealing her medication, steal ing her money, and stealing her boyfriend. She also had various somatic concern s and delusion. Keeps saying that she needs an eye doctor and urologist, stomac h doctor, director of research, oncologist, skin doctor, a port captain, and a [facility] physician. "I have missed appointment with all the local doctors ther e, and they will not take me, so I had to find a new doctor someplace else." tai reported that someone was throwing chemicals at her, that is why she had been struggling with anxiety, irritability, and legal courses, and that the hospitals and the police are not helping, and doing nothing for her, and she had been in and out of the hospital multiple times over the last 2-1/2 years." I have been dependent on heroin for more than 20 years, and I need Adderall, I need stimulan ts to go to sleep. The downers make me hyper, and the uppers make me down, and if I could get Adderall, then I will not be using cocaine and crystal meth." Th e patient reported that voices had been calmer. She indicated that she had been on Thorazine 100 mg twice a day, along with Benadryl 100 mg twice a day in the past for number of years, which she finds helpful. DIAGNOSTIC IMPRESSION: History of schizoaffective disorder, bipolar type, nonadherence with treatment. Polysubstance dependence including opiate, cocaine, crystal meth. PLAN OF TREATMENT: Continue Suboxone. She will be a good candidate for methadone clinic to improve compliance, and we are exploring long-term hospitalization for her to see if th at will help provide some level of stability. I will be increasing her Thorazin e from 25 mg t.i.d. to 25 mg b.i.d. and 50 mg at bedtime. The patient is agreeable with the med adjustment. * Kathia Abdi - 09/20/2020 2:38 PM EDT Faxed 5W mar for [facility] Psych * Ketty Alcala MD - 09/20/2020 1:27 PM EDT PSY Progress Note Subjective: CC: " People out there are trying to kill me. I can't trust my sister and my mot her. Somebody keeps cancelling medication that is ordered for me." HPI: Pt focused on not getting past med's that she believes were ordered for r. She tells of using meth as only med that slows her down . She talks of having severe ADD and Meth helps her sleep. She spoke of past trauma she suffered in [address] when using. Pt focused on believing she is accused of child sex abuse saying her nephew touc hed her when she was sleeping. Pt continues to say she wants to go to [facility] rehab to get off suboxone and get on Methadone. Condition appears to be her Baseline. Patient Active Problem List Diagnosis Date Noted Mood disorder 08/25/2020 Seizure 08/07/2020 Substance abuse 08/07/2020 Suicidal ideation 08/06/2020 Allergies: Allergies Allergen Reactions Dextroamphetamine Haldol [Haloperidol] Penicillins Sulfamethoxazole Trimethoprim Ziprasidone Scheduled Med's: buprenorphine-naloxone 2 Film Sublingual Daily chlorproMAZINE 25 mg Oral TID citalopram 10 mg Oral Daily gabapentin 400 mg Oral TID levETIRAcetam 1,000 mg Oral BID Continuous Infusions: PRN Med's:.acetaminophen (TYLENOL) tablet, benztropine, bisacodyl, cloNIDine, do cusate sodium, hydroxzine, magnesium hydroxide, nicotine, senna, trazodone Review Of Systems: Medical Review Of Systems: Review of Systems Constitutional: Negative. Respiratory: Negative. Cardiovascular: Negative. Genitourinary: Positive for vaginal pain. Psychiatric/Behavioral: Positive for behavioral problems and sleep disturbance. Negative for confusion, decreased concentration, dysphoric mood, hallucinations, self-injury and suicidal ideas. The patient is nervous/anxious. The patient is not hyperactive. All other systems reviewed are negative Psychiatric Review Of Systems: sleep: no appetite changes: no weight changes: no energy/anergy: no interest/pleasure/anhedonia: no somatic symptoms: no anxiety/panic: no guilty/hopeless: no S.I.B.s/risky behavior: no any drugs: yes alcohol: no Objective: . Vitals: 09/19/20 1314 09/19/20 2000 09/20/20 0600 09/20/20 0825 BP: 96/54 92/57 113/74 100/67 Pulse: 88 89 61 85 Resp: 16 16 16 16 Temp: 36 C (96.8 F) 36.4 C (97.5 F) SpO2: 96% 96% 99% 96% Mental Status Exam: .General Appearance: Patient is a short, average weight 35 y.o. female of [place] l build who appears the stated age. She has dyed, pulled back, long, brown hair. She has fair hygiene. She is sitting in bed with normal posture.She is dressed in a hospital gown. Behavior: Attitude: Patient is cooperative. Psychomotor: Patient has normal gait Patient does not have psychomotor agitatio n, psychomotor retardation or abnormal movements. Patient does not exhibit agita tion or restlessness. Eye Contact: Eye contact is appropriate. Patient does not maintain good eye con tact. Speech: Patient's speech is coherent, fluent and spontaneous. Speech quantity: n ormal. Rate is normal. Volume is normal. Tone is normal. Mood: Patient's mood is OK Affect: Affect is anxious, labile, appropriate and congruent with stated mood. P atient appears constricted with full range. Thought Process: Thought process is coherent, disorganized and logical. Thought Content: Patient expresses delusions of persecution and delusions of gra ndiosity. Patient does not express passive suicidal ideation and passive homicid al ideation. Perceptions: Patient has auditory hallucinations. Patient is not internally preo ccupied. Patient does not have visual hallucinations. Cognition: Patient is awake and alert and attentive. She is oriented to person a nd place. She appears to have below average intelligence. Recent memory is not i ntact. Remote memory is not intact. She shows good concentration. Insight: Poor Judgement: Poor Gait: steady Muscle Tone: no rigidity Labs: . Recent Labs Lab 09/17/20 0710 NA 138 K 4.2 CL 101 BICARBONATE 27 CALCIUM 9.3 GLUCOSE 115 BUN 13 CREATININE 0.66 BCR 20 PROT 6.5 ALBUMIN 4.0 TBILI <0.2 ALKPHOS 59 AST 16 ALT 13 GFRAA >90 GFRNONAA >90 Recent Labs Lab 09/17/20 0710 09/18/20 1548 HCT 37.5 -- HGB 12.5 -- MCH 29.2 -- MCHC 33.3 -- MCV 87.8 -- PLT 261 -- RDW 14.0 -- WBCUA -- 1 WBC 4.6 -- Recent Labs Lab 09/17/20 0710 TSH 1.400 EKG: came from [facility] over the weekend, no EPIC results Assessment and Plan: Pt is a 35 year old female with past psychiatric history significant f or polysubstance abuse, schizoaffective disorder bipolar type, was presented to Er with acute psychosis and delusions about missing her daughter, complain about her family, paranoid feelings about other people who ""robert her as cat" etc. I nitially, she was presented to [facility] ED with same presentation. After being d ischarge form ED she refuse to leave hospital and became angry and agitated. Tomer onel was involved. Because, she does not likes to leave property, she stated that she as SI. Pt was transferred to ED at [facility]. 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 An d current LOS=9. The team has considered application to [facility] for hiram nued stabilization however not appropriate for referral until LOS-10 days. SW following closely as well. Secondary Diagnosis: This will be reviewed and modified as appropriate by the treatment team and MD Merna huerta, the attending psychiatrist today. Duration of Face to Face Time (in minutes):: 20 Floor Time (in minutes ): 15 [x] Greater than 50% of patient time and floor time spent providing counseling and/or coordination of care Counseling provided with: [x] Patient [] Family [] Caregiver [] Diagnostic results/impressions and/or recommendation studies [] Risks and Benefits of Treatment Options [] Instruction for Management/Treatment and/or Follow-Up [] Risk Factor Reduction [x] Importance of Compliance with Treatment Options [x] Patient/Family/Caregiver Education [] Prognosis Coordination of Care provided with: [] Nursing Staff [x] Treatment Team [] Social Work [] Physician(s) [] Family [] Caregiver Justification for Continued Stay: [] A. Continued Danger to Self and/or Others [x] B. Continued behavior intolerable to patient or society [x] C. High probability of A or B recurring if patient were discharged and immin ent re-hospitalization likely [] D. Recovery depends on use of modality, patient unwilling or unable to coop erate [] E. Major change of clinical conditions required extended treatment [] F. Patient has general medical condition requiring hospital care & due to psychiatric aspects, patient cannot be managed as well on non-psych unit [] ALC Alternate Level of Care Chart, medication reviewed. Care coordinated with treatment team. The patient is a 35-year-old lady who carries diagnosis of schizoaffective disorder, bipolar type; polysubstance use disorder, including opiate, cannabinoid, and Goran who is well known to me from previous hospitalization at [facility]. The patient had been struggling with nonadherence with treatment. She was rosie balizing her delusional belief that her mom and her sister were influencing and somehow cancelling her medication. She also reports her desire to switch from S uboxone to methadone to help improve compliance with treatment. Currently, vonnei ent is on Thorazine, Keppra, Prilosec, Carafate. The patient was expressing her delusional beliefs that her dad had left money for her, and her mom and her sis ter are trying to kill her to deprive her of her inheritance. I reviewed her la bs. Her lipid profile, HDL was noted to be low, LDL was a bit high, triglycerid e was 229, hemoglobin A1c 4.9. My diagnostic impression is this 35-year-old lad y with history of schizoaffective disorder, bipolar type; significant comorbid s ubstance use disorder including history of opioid dependence, stimulant dependen ce, cannabinoid use; nonadherence with treatment. As repeated attempts to stabi lize her condition with frequent visits to local emergency department, inpatient unit had not resulted in any stability that she could maintain in the community , we are considering long-term hospitalization for her. She is also homeless an d that likely further complicates her risk, and she had been through multiple tr auma and abuse of being homeless, using mood-altering substances. The patient w as telling us that she herself had been violent and aggressive towards others. We will monitor her progress closely. * Demetria Soto - 09/20/2020 10:56 AM EDT Occupational Therapy Acute Care Psychiatric Group Note Medical Diagnosis: Suicidal ideation, psychosis Rehabilitation Precautions/Restrictions: Regular adult diet, psychiatry observation Goal Review Visit Number: 4 SUBJECTIVE Patient Report: Pt agreeable to OT treatment session Pain: Patient has no complaints of pain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 improve interpersonal and social skills; improve communication This patient is in need of these skills. The mental status exam per observation of behavior during group was as follows: Pt presented to group with good hygiene, dressed in personal clothing. Pt's affect was labile. Pt's thought process was disorganized and tangential. The patient participated in group session as follows: Therapist provided members with materials and supplies needed to make positive affirmation cups. Therapist introduced group topic and instructed members to cut up pieces of paper and write down positive affirmations, words, quotes, and future goals to decrease negative thought patterns. Group members were encouraged to decorate their cup to facilitate creative expression. Afterwards, therapist encouraged members to pass their cups around and write down one compliment to facilitate appropriate peer interaction and improve self esteem. Therapist wrapped up group with discussion on activity and the benefits of positive affirmations in decreasing negative thought patterns. Therapist encouraged group members to share their thoughts and feelings towards writing down positive affirmations and receiving a compliment from another peer. Therapist encouraged group members to incorporate positive affirmations into their daily routine and gave members suggestions for new ways to use positive affirmations. By virtue of this participation, patient has demonstrated the following improvement or lack thereof: interpersonal skills and self-esteem, stress management, coping skills This change has facilitated progress toward attainment of treatment plan goals and objectives. ASSESSMENT Response to Visit: The session was tolerated well. Pt arrived to group on time and stayed for duration of session. Pt participated in activity and discussion. Pt was irritable at start of session and then was observed to be visablly brighter after activity as she was smiling and laughing. Pt was appropriate in her interactions with peers throughout session. During discussion, pt stated that she frequently uses positive affirmations as a coping skill. However, pt was disorganized and tangential as she provided excessive detail about her past history with her family. Compared to previous sessions, pt required less verbal redirection and cues. Pain: Patient has no complaints of pain currently. Goal review: Pt is progressing towards identifying triggers of stress and coping skills through education on the benefits of positive affirmations on overall health. Pt is progressing towards goal of attending group sessions and demonstrating attentive behavior. Pt attended group session and participated in activity. However, pt was tangential and disorganized during discussion. PLAN Treatment Frequency, Duration and Interventions: Restorative Occupational Therapy recommended for 5x/wk for 2wks Treatment is to include: Development of Cognitive Skills. Self Care/Home Management. Therapeutic Activity. Therapeutic Exercise. Group Therapeutic Procedure. Development of Plan of Care: Participants included: Patient. Discharge Planning: not applicable. Visit Number: Today's visit is number 2 Program: Psych SESSION: Duration: 40 CHARGES: - ORDER - Occupational Therapy Treatment 1 Units [id number] - CHARGE - OT GROUP (2 OR MORE) 3 Units - Psych Visit 1 Units Total treatment minutes: 40.00 Minutes Electronically Signed by: Demetria Soto, Student OT, 09/16/2020 3:21:38 PM - CoSigned By: Isa Bennett OTR/L, 09/16/2020 3:27:58 PM * Gabrielle Anton RN - 09/16/2020 11:21 AM EDT Report received from previous shift. At the beginning of the shift pt was sleepi ng in room. Spend time with pt in 1:1 session and talked about the importance of using coping skills or learning the new one. According to pt, "I did not sleep good. " Pt was sometimes visible in the milieu, socialized with selected peers and encou raged to participate in unit's groups. Pt denied any safety concerns but she had many requests at the nursing station. Pt ate breakfast and took scheduled meds . Pt was given the menu, educated and encouraged to make a choice for the next d ay. Pt ambulated independently, did ADL's also independently, and was free of fa lls at this time. Pt is on 15 min checks and will continue to monitor for safety . * Kelly Pinon RN - 09/16/2020 4:38 AM EDT RN Shift Report: pt under T/W care from [id number]. Pt visible in the milieu at t he start of the shift. She remained irritable, labile and verbally aggressive th roughout the shift. At approximately 1630 pt asking for T/W to go in the kitchen and get her a salad dressing that she was missing from lunch. Pt educated times when kitchen is open. She became verbally aggressive at this time stating "I WA NT SALAD DRESSING NOW. I SAID FUCKING NOW. I WILL FUCK YOU UP YOU FUCKING CUNT. I CAN'T STAND TO LOOK AT YOU. I'M GOING TO SPIT ALL OVER YOU". Nursing station w indow closed so pt was not able to physically assault staff. Pt then began punch ing nursing station window 11 times before being redirected by another provider. Pt agreeable to taking PO medication at this time with moderate effect. She rem ained agitated the rest of the shift. She demonstrates a low frustration toleran ce. She is focused on getting her immediate needs met, threatens physical violen ce towards staff over meals and food. She is demanding and hostile. She becomes disorganized in conversation. Per roommate she was agitated and yelling in room today about T/W threatening physical violence. Pt's roommate had to be moved out of the room due to her disruptive behavior. She was compliant with all ordered medications per APR. At approximately 0230 pt complaining of vaginal discomfort and requesting a STD test. Written in medical PA book. Pt agitated that T/W coul d not just give "me a fucking cream or gel like I asked you too". She reports th is vaginal discomfort has been happening for over a week. When asked why she is bringing up this discomfort for the first time at 0230 she states "You can't get a fucking doctor up here right now. You fucking lazy bitch". She was awake thro ughout the night. Position changes noted throughout. Breathing is even and unlab ored. She remains on q15 min frequent checks per protocol. Report given to irina torres RN She is disruptive to both her roommate and peers in the milieu. Required frequen t redirection from staff as she was upsetting other pt's with her language. Educ ated on appropriate language to use while in the milieu, she refused all teachin g and unable to demonstrate understanding * Aury Clark - 09/15/2020 11:00 AM EDT Met with pt to assess for recreational needs. Pt was minimal during conversation and stated that she was tired. She says she's been in and out of hospital her w hole life so she already has the information she needs. She is currently focused on her meals as she says they are "never right." When not hospitalized, pt says she enjoys watching tv and movies, listening to music, and shopping. She is deng re of the group schedule and says she might attend some. She was given a journal to use in her free time. Pt will continue to be encouraged to attend and partic ipate in therapeutic groups as she is in need of healthy coping skills. * Gabrielle Anton RN - 09/15/2020 10:57 AM EDT Report received from previous shift. At the beginning of the shift pt was sleepi ng in room. Spend time with pt in 1:1 session and talked about the importance of using coping skills or learning the new one. According to pt, "slept good. " P t asked to switch her Nicotine patch to the lozengers. Pt was sometimes visible in the milieu, socialized with selected peers and encou raged to participate in unit's groups. Pt ate breakfast and took scheduled meds. Pt was given the menu, educated and encouraged to make a choice for the next da y. Pt ambulated independently, did ADL's also independently, and was free of fal ls at this time. Pt is on 15 min checks and will continue to monitor for safety. * Sydnee Spicer, SUBGRADE ROLLER OPERATOR - 09/15/2020 10:40 AM EDT PSY Progress Note Subjective: CC: Labile, has threatened hospital staff within 24 hours Interval HX: Melissa Diaz Come met with treatment team. She is able to be directed in interivew questons then with unfocused interivew she is disorganized. And the v oices are telling her to do violent acts. Superficially she is pleasant. Denies issues with med's and med changes. She is not having an effective/robust respons e to the [facility] and with talking to team, reviewed her med allergies. And she i s in agreement to return to thorazine use, prior success. And she is taking a lo t of prn Tylenol, has somatic complaints which are unchanged and non acute. Again, current LOS=4. She may be referred to state at day#10 09/14/2020- Quite interactive Melissa has been to groups, walking hallways. In good spirits Melissa Diaz Come though process is on topic with the interview until the di rected portion ends, when not answering questions she is fully disorganized. She does however redirect easily. Melissa denies issues with med's then later asks about the increasing dose gabape ntin, this has been evaluated, appropriate to increase to 400 mg TID. She is in agreement with the titration (states was on 600 mg tid previously). Melissa states she is sleeping but when asked about the night wakening's she casually states s he got up for drink of water, then without transition talks of being targeted fo r hit and run "knew the jarvis". And she shows a lump on the back of her head. Ambtai quezada talks of obtaining a neurologist, a director of research because "I know I have leukem ia, I bleed all over". Melissa Diaz Come again asks for adderall "downers work like u ppers and I don't like heroin". So that's her thought content. And current LOS= 3. The team has considered application to on license of [facility] for continued stabiliza tion however not appropriate for referral until LOS-10 days.She is improved over yesterday. 09/13/20-/Melissa met with [place] team. She is disorganized thought process but very pl easant. Notes from the weekend she had been yelling about meals, talking of the medications. Today she talked of past medications, isn't able to identify the cu rrent regimen. But she was able to identify she has faustina talamantes at home. And the suboxone is via another provider as noted in [facility]. She last used injected heroin a week or so ago. Wants to go on methadone instead of suboxone but doesn't want to go to the methadone clinic daily so she adds she wants to get the methadone from a pain clinic. She states her pain and anxiety are both 10/10 scale. Melissa Lee has been medication compliant (see list below) and has not utilized any prn medications. She appears sedated (drooping eyelids) but is following the [place] team meeting well , firm directions she did well with the need to answer our direct questions. Whe n she talked on her own she was disorganized. Patient Active Problem List Diagnosis Date Noted Mood disorder 08/25/2020 Seizure 08/07/2020 Substance abuse 08/07/2020 Suicidal ideation 08/06/2020 Allergies: . Allergies Allergen Reactions Dextroamphetamine Haldol [Haloperidol] Penicillins Sulfamethoxazole Trimethoprim Ziprasidone Scheduled Med's: Asenapine Maleate 5 mg Sublingual BID buprenorphine-naloxone 2 Film Sublingual Daily gabapentin 400 mg Oral TID levETIRAcetam 1,000 mg Oral BID Continuous Infusions: PRN Med's:.acetaminophen (TYLENOL) tablet, benztropine, bisacodyl, cloNIDine, do cusate sodium, hydroxzine, magnesium hydroxide, nicotine, senna, trazodone Review Of Systems: Medical Review Of Systems: Review of Systems Constitutional: Negative. Respiratory: Negative. Cardiovascular: Negative. Psychiatric/Behavioral: Positive for behavioral problems and sleep disturbance. Negative for confusion, decreased concentration, dysphoric mood, hallucinations, self-injury and suicidal ideas. The patient is nervous/anxious. The patient is not hyperactive. All other systems reviewed are negative Psychiatric Review Of Systems: sleep: no appetite changes: no weight changes: no energy/anergy: no interest/pleasure/anhedonia: no somatic symptoms: no anxiety/panic: no guilty/hopeless: no S.I.B.s/risky behavior: no any drugs: yes alcohol: no Objective: . Vitals: 09/12/20 0830 09/13/20 0800 09/14/20 0600 09/14/201999 BP: 92/54 94/60 94/66 117/72 Pulse: 68 89 82 81 Resp: 16 16 17 16 Temp: 36.4 C (97.5 F) 36.4 C (97.5 F) 36.9 C (98.4 F) 36 .7 C (98.1 F) SpO2: 97% 98% 98% Mental Status Exam: .General Appearance: Patient is a short, average weight 35 y.o. female of [place]ak[place] l build who appears the stated age. She has dyed, pulled back, long, brown hair. She has fair hygiene. She is sitting in a chair with normal posture.She is dres sed in weather appropriate and casual clothing. Behavior: Attitude: Patient is cooperative. Psychomotor: Patient has normal gait Patient does not have psychomotor retardat ion or abnormal movements. Patient does not exhibit restlessness. Eye Contact: Eye contact is appropriate. Patient does not maintain good eye con tact. Speech: Patient's speech is coherent, fluent and spontaneous. Speech quantity: v oluble. Rate is normal. Volume is normal. Tone is normal. Mood: Patient's mood is OK Affect: Affect is anxious, stable, appropriate and congruent with stated mood. P atient appears constricted. Thought Process: Thought process is coherent, disorganized and logical. Thought Content: Patient expresses delusions of grandiosity. Patient does not ex press passive suicidal ideation and passive homicidal ideation. Perceptions: Patient has auditory hallucinations. Patient does not have visual h allucinations. Cognition: Patient is awake and alert and attentive. She is oriented to person a nd place. She appears to have below average intelligence. Recent memory is not i ntact. Remote memory is not intact. She shows good concentration. Insight: Poor Judgement: Poor Gait: steady Muscle Tone: no rigidity Labs: .No results for input(s): NA, K, CL, BICARBONATE, CALCIUM, GLUCOSE, BUN, CREATIN INE, BCR, LABOSMO, PROT, ALBUMIN, TBILI, ALKPHOS, AST, ALT, AGGREGATE, AGRATIO, GFRAA, GFRNONAA in the last 168 hours. Recent Labs Lab 09/12/20 1157 WBCUA None No results for input(s): TSH, T3FREE, G5EUOCI, FREET4, L2ZJLEV in the last 168 h ours. EKG: came from [facility] over the weekend, no EPIC results Assessment and Plan: Pt is a 35 year old female with past psychiatric history significant f or polysubstance abuse, schizoaffective disorder bipolar type, was presented to Er with acute psychosis and delusions about missing her daughter, complain about her family, paranoid feelings about other people who ""robert her as cat" etc. I nitially, she was presented to [facility] ED with same presentation. After being d ischarge form ED she refuse to leave hospital and became angry and agitated. Tomer onel was involved. Because, she does not likes to leave property, she stated that she as SI. Pt was transferred to ED at [facility]. 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 And current LOS=4. The team has considered application to [facility] for continued stabilization however not appropriate for referral until LOS-10 days. SW following closely as well. Secondary Diagnosis: This will be reviewed and modified as appropriate by the treatment team and MD Farhad winters, the attending psychiatrist today. Duration of Face to Face Time (in minutes)::15 Floor Time (in minutes): 25 [x] Greater than 50% of patient time and floor time spent providing counseling and/or coordination of care Counseling provided with: [x] Patient [] Family [] Caregiver [] Diagnostic results/impressions and/or recommendation studies [] Risks and Benefits of Treatment Options [] Instruction for Management/Treatment and/or Follow-Up [] Risk Factor Reduction [x] Importance of Compliance with Treatment Options [x] Patient/Family/Caregiver Education [] Prognosis Coordination of Care provided with: [] Nursing Staff [x] Treatment Team [] Social Work [] Physician(s) [] Family [] Caregiver Justification for Continued Stay: [] A. Continued Danger to Self and/or Others [x] B. Continued behavior intolerable to patient or society [x] C. High probability of A or B recurring if patient were discharged and immin ent re-hospitalization likely [] D. Recovery depends on use of modality, patient unwilling or unable to coop erate [] E. Major change of clinical conditions required extended treatment [] F. Patient has general medical condition requiring hospital care & due to psychiatric aspects, patient cannot be managed as well on non-psych unit [] ALC Alternate Level of Care Associated attestation - Petr Hood MD - 09/16/2020 10:41 AM EDT I agree with the plan and course of action Patient struggling at this time. She is disorganized and paranoid and delusional at this time She has agreed to go back on Thorazine at this time Has multiple somatic complaints at this time May need to consider State referall * Eleazar Galvez - 09/15/2020 10:00 AM EDT Spiritual Care Progress Note Spanish Medical Interpreter: Rev. Eleazar Galvez M.Div.; [facility] Patient Name: Melissa Diaz Come Age: 35 y.o. Sex: female Room/Bed: 516/1 Bianca Affiliation/Tradition: Muslim Admit Date: 09/11/2020 Referrals: Referral From: Recreational Therapy Referral To: Spanish Medical Interpreter Contact Information: [id number] Spiritual Care Assessment Spouse/Significant Other Name/Relationship: None Assessed Need for Visit: Mental Health Issues Patient Description: Altered Mental Status (AMS) Spiritual/Cultural/Social Issues Assessment: I visited with Melissa while she was in Spiritual care group. We focused on Kindness. Melissa said she is doing better . Spiritual Care Intervention: Affirmation, Identify/Encourage Coping, Prayer, Pr ovide [facility], Supportive Listening Spiritual Outcomes - Patient: Expressed feelings, [place] comforted, accompanied, [place] heard, valued, affirmed, Renewed bianca Spiritual Outcomes - Family: Not available for assessment Spiritual Care Plan Goals of Care: Identify sources of hope and support these hopes. Outcome: gradually improving Spiritual Care Follow Up Patient Follow-up Plan: Visit if requested by patient/family Family Follow-up Plan: No contact made at this time * Hollie Amador LCSW - 09/15/2020 9:44 AM EDT 09/15/20 0944 Social Work Productivity Referral Type Psychiatric Time Spent (minutes) 30 The treatment team met with patient for update. Multiple medications were sugges keven and they decided on Thorazine as patient had tried all others and there were issues with them. Patient is looking for a referral for medical appointments (s he is convinced she has leukemia). She continues to be hyperverbal and tangentia l and would benefit from more time in the hospital. * David Horton RN - 09/15/2020 2:36 AM EDT Received report from outgoing RN at 2300. Pt asleep through out the night. Resp irations easy,even,unlabored. Position changes noted. No apparent distress.No VA N's given this shift. No new concerns. Will continue to monitor for comfort and safety. * Kelly Pinon RN - 09/14/2020 10:10 PM EDT RN Shift Report: pt under T/W care from [id number]. Pt remains focused on getting her immediate needs met. She is often up at the nursing station with multiple b enign requests. Pt irritable and easily agitated. She becomes disorganized the l onger you converse with her. She is seen talking in the hallways about what she' s going to spend her millions of dollars on in [place]. She is requesting a medi fadi bed due to a "needle being stuck in my neck. It fucking hurts when I lay at an angle". Pt educated that platform beds on the unit are flat. Pt irritable. Seymour burgess had adequate intake of food and drink. She is focused on food and snack on the unit. She has multiple complaints regarding the kitchen and not being allowed a s many snacks as she would like. She was compliant with all ordered medications per APR. She remains on q15 min frequent checks per protocol. Report given to on coming RN At approximately 2245 pt complaining of inner ear pain. No drainage or redness n oted. Pt yelling and verbally aggressive with T/W that "a medical nurse won't st ick the thing in my ear". Pt encouraged to speak with treatment team in AM regar ding her concerns. Complaint written in medical PA book to address in AM. She is hostile, demeaning and threatening physical violence against staff if her needs are not met * Sydnee Spicer, SUBGRADE ROLLER OPERATOR - 09/14/2020 3:43 PM EDT PSY Progress Note Subjective: CC: "I am a prophet from God" Interval HX: Melissa Diaz Come met with undersigned. Quite interactive Melissa has been to groups, walking hallways. In good spirits Melissa Diaz Come though process is on topic with the interview until the directed portion ends, when not answering que stions she is fully disorganized. She does however redirect easily. Melissa denies issues with med's then later asks about the increasing dose gabape ntin, this has been evaluated, appropriate to increase to 400 mg TID. She is in agreement with the titration (states was on 600 mg tid previously). Melissa states she is sleeping but when asked about the night wakening's she casually states s he got up for drink of water, then without transition talks of being targeted fo r hit and run "knew the jarvis". And she shows a lump on the back of her head. Ambe r talks of obtaining a neurologist, a director of research because "I know I have leukem ia, I bleed all over". Melissa Lee again asks for adderall "downers work like u ppers and I don't like heroin". So that's her thought content. And current LOS= 3. The team has considered application to [facility] for continued stabiliza tion however not appropriate for referral until LOS-10 days.She is improved over yesterday. 09/13/20-/Melissa met with [place] team. She is disorganized thought process but very pl easant. Notes from the weekend she had been yelling about meals, talking of the medications. Today she talked of past medications, isn't able to identify the cu rrent regimen. But she was able to identify she has faustina talamantes at home. And the suboxone is via another provider as noted in [facility]. She last used injected heroin a week or so ago. Wants to go on methadone instead of suboxone but doesn't want to go to the methadone clinic daily so she adds she wants to get the methadone from a pain clinic. She states her pain and anxiety are both 10/10 scale. Melissa Lee has been medication compliant (see list below) and has not utilized any prn medications. She appears sedated (drooping eyelids) but is following the [place] team meeting well , firm directions she did well with the need to answer our direct questions. Whe n she talked on her own she was disorganized. Patient Active Problem List Diagnosis Date Noted Mood disorder 08/25/2020 Seizure 08/07/2020 Substance abuse 08/07/2020 Suicidal ideation 08/06/2020 Allergies: . Allergies Allergen Reactions Dextroamphetamine Haldol [Haloperidol] Penicillins Sulfamethoxazole Trimethoprim Ziprasidone Scheduled Med's: Asenapine Maleate 5 mg Sublingual BID buprenorphine-naloxone 2 Film Sublingual Daily gabapentin 400 mg Oral TID levETIRAcetam 1,000 mg Oral BID nicotine 1 patch Transdermal Daily Continuous Infusions: PRN Med's:.acetaminophen (TYLENOL) tablet, benztropine, bisacodyl, cloNIDine, do cusate sodium, hydroxzine, magnesium hydroxide, senna, trazodone Review Of Systems: Medical Review Of Systems: Review of Systems Constitutional: Negative. Respiratory: Negative. Cardiovascular: Negative. Psychiatric/Behavioral: Positive for behavioral problems and sleep disturbance. Negative for confusion, decreased concentration, dysphoric mood, hallucinations, self-injury and suicidal ideas. The patient is nervous/anxious. The patient is not hyperactive. All other systems reviewed are negative Psychiatric Review Of Systems: sleep: no appetite changes: no weight changes: no energy/anergy: no interest/pleasure/anhedonia: no somatic symptoms: no anxiety/panic: no guilty/hopeless: no S.I.B.s/risky behavior: no any drugs: yes alcohol: no Objective: . Vitals: 09/11/20 1634 09/12/20 0830 09/13/20 0800 09/14/20 0600 BP: 100/68 92/54 94/60 94/66 Pulse: 72 68 89 82 Resp: 14 16 16 17 Temp: 36.4 C (97.5 F) 36.4 C (97.5 F) 36.9 C (98.4 F) SpO2: 99% 97% 98% 98% Mental Status Exam: .General Appearance: Patient is a short, average weight 35 y.o. female of dakota l build who appears the stated age. She has dyed, pulled back, long, brown hair. She has fair hygiene. She is sitting in bed with normal posture.She is dressed in weather appropriate and casual clothing. Behavior: Attitude: Patient is cooperative. Psychomotor: Patient has normal gait Patient does not have abnormal movements. Eye Contact: Eye contact is appropriate. Patient does not maintain good eye con tact. Speech: Patient's speech is coherent, fluent and spontaneous. Speech quantity: v oluble. Rate is normal. Volume is normal. Tone is normal. Mood: Patient's mood is OK Affect: Affect is anxious, stable, appropriate and congruent with stated mood. P atient appears to have restricted range. Thought Process: Thought process is coherent, disorganized and logical. Thought Content: Patient expresses delusions of grandiosity. Patient does not ex press passive suicidal ideation and passive homicidal ideation. Perceptions: Patient has auditory hallucinations. Patient does not have visual h allucinations. Cognition: Patient is awake and alert and attentive. She is oriented to person a nd place. She appears to have below average intelligence. Recent memory is not i ntact. Remote memory is not intact. She shows good concentration. Insight: Poor Judgement: Poor Gait: steady Muscle Tone: no rigidity Labs: .No results for input(s): NA, K, CL, BICARBONATE, CALCIUM, GLUCOSE, BUN, CREATIN INE, BCR, LABOSMO, PROT, ALBUMIN, TBILI, ALKPHOS, AST, ALT, AGGREGATE, AGRATIO, GFRAA, GFRNONAA in the last 168 hours. Recent Labs Lab 09/12/20 1157 WBCUA None No results for input(s): TSH, T3FREE, N2BVMBA, FREET4, K1VDLQV in the last 168 h ours. EKG: came from [facility] over the weekend, no EPIC results Assessment and Plan: Pt is a 35 year old female with past psychiatric history significant f or polysubstance abuse, schizoaffective disorder bipolar type, was presented to Er with acute psychosis and delusions about missing her daughter, complain about her family, paranoid feelings about other people who ""robert her as cat" etc. I nitially, she was presented to [facility] ED with same presentation. After being d ischarge form ED she refuse to leave hospital and became angry and agitated. Tomer onel was involved. Because, she does not likes to leave property, she stated that she as SI. Pt was transferred to ED at [facility]. 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 And current LOS=3. The team has considered application to [facility] for continued stabilization however not appropriate for referral until LOS-10 days. SW following closely as well. Secondary Diagnosis: This will be reviewed and modified as appropriate by the treatment team and MD Joe blandon, the attending psychiatrist today. Duration of Face to Face Time (in minutes)::15 Floor Time (in minutes): 25 [x] Greater than 50% of patient time and floor time spent providing counseling and/or coordination of care Counseling provided with: [x] Patient [] Family [] Caregiver [] Diagnostic results/impressions and/or recommendation studies [] Risks and Benefits of Treatment Options [] Instruction for Management/Treatment and/or Follow-Up [] Risk Factor Reduction [x] Importance of Compliance with Treatment Options [x] Patient/Family/Caregiver Education [] Prognosis Coordination of Care provided with: [] Nursing Staff [x] Treatment Team [] Social Work [] Physician(s) [] Family [] Caregiver Justification for Continued Stay: [] A. Continued Danger to Self and/or Others [x] B. Continued behavior intolerable to patient or society [x] C. High probability of A or B recurring if patient were discharged and immin ent re-hospitalization likely [] D. Recovery depends on use of modality, patient unwilling or unable to coop erate [] E. Major change of clinical conditions required extended treatment [] F. Patient has general medical condition requiring hospital care & due to psychiatric aspects, patient cannot be managed as well on non-psych unit [] ALC Alternate Level of Care * Chantell Randhawa LPN - 09/14/2020 2:46 PM EDT Patient compliant with scheduled medications. Pt attended groups throughout the day. Pt not compliant with wearing a face mask when out of her room. Will contin ue to monitor for safety. * Gabrielle Anton RN - 09/14/2020 10:16 AM EDT Report received from previous shift. At the beginning of the shift pt was restin g in the day room and asking to do his laundry. Pt was visible in the milieu, socialized with selected peers and encouraged to p articipate in unit's groups. Pt denied any safety concerns. Pt ate breakfast and took scheduled meds. Pt was given the menu, educated and encouraged to make a c hoice for the next day. Pt ambulated independently, did ADL's also independently , and was free of falls at this time. Pt is on 15 min checks and will continue t o monitor for safety. * Isabella Park RN - 09/14/2020 12:04 AM EDT RN Note: Patient visible in the day room watching TV, patient was calm and compl iant with medications. C/O headache 10/10 pain, Tylenol 650 mg given, patient sl eeping on reassessment of pain. Will continue to monitor and provide for safety. Patient appeared to be sleeping throughout the night, respirations easy, even, u nlabored, position change noted. Frequent checks maintain. Tylenol given at 0527 for headache 10, on reassessment pt states pain 6/10. * Hollie Amador LCSW - 09/13/2020 3:50 PM EDT 09/13/20 1550 Social Work Productivity Referral Type Psychiatric Time Spent (minutes) 20 SW spoke with the assistant case manager Genaro Hodges. He reports that patient is homeless a nd basically couch surfing. She always denies drug use even though its evident s he has been using. She should go into rehab but will not due to the denial. Corinne garcia has been in and out of emergency rooms and has had approximately 10 admissi ons over the past 6 months. He is worried that if she doesn't stable she will e nd up . He also reports that patient knows the system well and can pull it t ogether so that she gets discharged within a few days. He would like to see her stay for a period of time and get stable before discharging. * Sydnee Spicer NP - 09/13/2020 2:30 PM EDT PSY Progress Note Subjective: CC: "haven't seen my daughter since February Interval HX: Melissa M Come met with [place] team. She is disorganized thought process but very pleasant. Notes from the weekend she had been yelling about meals, talk ing of the medications. Today she talked of past medications, isn't able to iden tify the current regimen. But she was able to identify she has albin faustina a t home. And the suboxone is via another provider as noted in [facility]. She last used injected heroin a week or so ago. Wants to go on methadone instead of suboxone but doesn't want to go to the methadone clinic daily so she adds she wants to get the methadone from a pain clinic. She states her pain and anxiety are both 10/10 scale. Melissa Lee has been medication compliant (see list below) and has not utilized any prn medications. She appears sedated (drooping eyelids) but is following the [place] team meeting well , firm directions she did well with the need to answer our direct questions. Whe n she talked on her own she was disorganized. Patient Active Problem List Diagnosis Date Noted Mood disorder 08/25/2020 Seizure 08/07/2020 Substance abuse 08/07/2020 Suicidal ideation 08/06/2020 Allergies: . Allergies Allergen Reactions Dextroamphetamine Haldol [Haloperidol] Penicillins Sulfamethoxazole Trimethoprim Ziprasidone Scheduled Med's: Asenapine Maleate 5 mg Sublingual BID buprenorphine-naloxone 2 Film Sublingual Daily gabapentin 300 mg Oral TID levETIRAcetam 1,000 mg Oral BID nicotine 1 patch Transdermal Daily Continuous Infusions: PRN Med's:.benztropine, bisacodyl, cloNIDine, docusate sodium, hydroxzine, magne sium hydroxide, senna, trazodone Review Of Systems: Medical Review Of Systems: Review of Systems Constitutional: Negative. Respiratory: Negative. Cardiovascular: Negative. Psychiatric/Behavioral: Positive for behavioral problems, dysphoric mood and sle ep disturbance. Negative for hallucinations. The patient is nervous/anxious. All other systems reviewed are negative Psychiatric Review Of Systems: sleep: no appetite changes: no weight changes: no energy/anergy: no interest/pleasure/anhedonia: no somatic symptoms: no anxiety/panic: no guilty/hopeless: no S.I.B.s/risky behavior: no any drugs: yes alcohol: no Objective: . Vitals: 09/11/20 1634 09/12/20 0830 09/13/20 0800 BP: 100/68 92/54 94/60 Pulse: 72 68 89 Resp: 14 16 16 Temp: 36.4 C (97.5 F) 36.4 C (97.5 F) SpO2: 99% 97% 98% Mental Status Exam: .General Appearance: Patient is a thin 35 y.o. female. Behavior: Psychomotor: Patient exhibits restlessness. Eye Contact: Patient does not maintain good eye contact. Speech: Patient's speech is spontaneous. Speech quantity: voluble. Rate is dakota l. Volume is normal. Affect: Affect is anxious and stable. Patient appears to have full range. Thought Process: Thought process is coherent and disorganized. Thought Content: Patient does not express passive suicidal ideation and passive homicidal ideation. Cognition: Patient is awake and alert. She is oriented to person. Insight: Impaired Judgement: Impaired Gait: steady Muscle Tone: no rigidity Labs: .No results for input(s): NA, K, CL, BICARBONATE, CALCIUM, GLUCOSE, BUN, CREATIN INE, BCR, LABOSMO, PROT, ALBUMIN, TBILI, ALKPHOS, AST, ALT, AGGREGATE, AGRATIO, GFRAA, GFRNONAA in the last 168 hours. Recent Labs Lab 09/12/20 1157 WBCUA None No results for input(s): TSH, T3FREE, M2AUPEG, FREET4, O5XQTEK in the last 168 h ours. EKG: came from [facility] over the weekend, no EPIC results Assessment and Plan: Pt is a 35 year old female with past psychiatric history significant f or polysubstance abuse, schizoaffective disorder bipolar type, was presented to Er with acute psychosis and delusions about missing her daughter, complain about her family, paranoid feelings about other people who ""robert her as cat" etc. I nitially, she was presented to [facility] ED with same presentation. After being d ischarge form ED she refuse to leave hospital and became angry and agitated. Tomer onel was involved. Because, she does not likes to leave property, she stated that she as SI. Pt was transferred to ED at [facility]. 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 SW following closely as well. Secondary Diagnosis: This will be reviewed and modified as appropriate by the treatment team and MD Farhad winters, the attending psychiatrist today. Duration of Face to Face Time (in minutes)::15 Floor Time (in minutes): 35 [x] Greater than 50% of patient time and floor time spent providing counseling and/or coordination of care Counseling provided with: [x] Patient [] Family [] Caregiver [] Diagnostic results/impressions and/or recommendation studies [] Risks and Benefits of Treatment Options [] Instruction for Management/Treatment and/or Follow-Up [] Risk Factor Reduction [x] Importance of Compliance with Treatment Options [x] Patient/Family/Caregiver Education [] Prognosis Coordination of Care provided with: [] Nursing Staff [x] Treatment Team [] Social Work [] Physician(s) [] Family [] Caregiver Justification for Continued Stay: [] A. Continued Danger to Self and/or Others [x] B. Continued behavior intolerable to patient or society [x] C. High probability of A or B recurring if patient were discharged and immin ent re-hospitalization likely [] D. Recovery depends on use of modality, patient unwilling or unable to coop erate [] E. Major change of clinical conditions required extended treatment [] F. Patient has general medical condition requiring hospital care & due to psychiatric aspects, patient cannot be managed as well on non-psych unit [] ALC Alternate Level of Care Associated attestation - Petr Hood MD - 09/15/2020 10:37 AM EDT I agree with the plan and course of action Patient is irritable and disorganized and paranoid at this time. Poor insight ab out her drug use at this time Talk about her daughter at this time Struggling at this time. She is not doing well Needs to stay and adjust medications and monitor * Tigist Ferrer, ANGEL - 09/13/2020 8:53 AM EDT Department of Food and Nutrition Nutritional Evaluation and Care Plan Reason for Review: # loss, no reported appetite change (MST 2) Basic Evaluation Patient is a 35 y.o. female, admitted on [id number] with a diagnosis of Suicidal delia ation. Past Medical History: Past Medical History: Diagnosis Date Seizures H/O substance abuse - taking suboxone outpatient. Past Surgical History: Past Surgical History: Procedure Laterality Date HERNIA REPAIR Home Medications: Prior to Admission medications Medication Sig Start Date End Date Taking? Authorizing Provider Buprenorphine HCl-Naloxone HCl 8-2 MG Sublingual Film (SUBOXONE) Place 2 Film un harjinder the tongue daily 08/18/20 Yes Jose J Mao MD levetiracetam (KEPPRA) 1000 MG tablet Take 1,000 mg by mouth Two Times Daily Yes Historical Provider, Gabapentin 300 MG Oral Capsule (NEURONTIN) Take 2 capsules by mouth Three times daily 08/17/20 09/12/20 Yes RASHID Arora Asenapine Maleate 10 MG Sublingual Tablet Sublingual (SAPHRIS) Place 1 tablet un harjinder the tongue Two Times Daily 08/17/20 RASHID Arora Benztropine Mesylate 1 MG Oral Tablet (COGENTIN) Take 1 tablet by mouth Two time s daily as needed 08/17/20 RASHID Arora Multidisciplinary Problems: Principal Problem: Suicidal ideation Current Diet/Tube Feed/TPN Order: Diet Adult; Regular Active, Scheduled Medications: Current Facility-Administered Medications Medication Dose Route Frequency Provider Last Rate Last Admin Asenapine Maleate (SAPHRIS) SL tablet 5 mg 5 mg Sublingual BID Pablo A Us ev, SUBGRADE ROLLER OPERATOR 5 mg at 09/13/20 0756 benztropine (COGENTIN) tablet 1 mg 1 mg Oral BID PRN Pablo A Usev, SUBGRADE ROLLER OPERATOR bisacodyl (DULCOLAX) suppository 10 mg 10 mg Rectal Q72H PRN Sydnee Spicer NP buprenorphine-naloxone (SUBOXONE) 8-2 MG per sublingual film 2 Film 2 Fi lm Sublingual Daily Pablo A Usev, SUBGRADE ROLLER OPERATOR 2 Film at 09/13/20 0756 cloNIDine (CATAPRES) tablet 0.1 mg 0.1 mg Oral TID PRN Pablo A Usev, SUBGRADE ROLLER OPERATOR docusate sodium (COLACE) capsule 100 mg 100 mg Oral BID PRN Sydnee Spicer NP gabapentin (NEURONTIN) capsule 300 mg 300 mg Oral TID Pablo A Usev, SUBGRADE ROLLER OPERATOR 300 mg at 09/13/20 0756 hydrOXYzine (ATARAX) tablet 50 mg 50 mg Oral Q6H PRN Pablo A Usev, SUBGRADE ROLLER OPERATOR levetiracetam (KEPPRA) tablet 1,000 mg 1,000 mg Oral BID Pablo A Usev, SUBGRADE ROLLER OPERATOR 1,000 mg at 09/13/20 0756 magnesium hydroxide (MILK OF MAGNESIA) 400 MG/5ML oral suspension 45 mL 45 mL Oral Nightly PRN Sydnee Spicer NP nicotine (NICODERM CQ) 21 MG/24HR 1 patch 1 patch Transdermal Daily Pablo A Usev, SUBGRADE ROLLER OPERATOR 1 patch at 09/13/20 0756 senna tablet 2 tablet 2 tablet Oral Nightly PRN Sydnee Spicer NP trazodone (DESYREL) tablet 50 mg 50 mg Oral Nightly PRN Pablo A Usev, SUBGRADE ROLLER OPERATOR Allergies: Dextroamphetamine, Haldol [haloperidol], Penicillins, Sulfamethoxazol e, Trimethoprim, and Ziprasidone Cultural/Latter-Day/Ethnic food preferences: None reported. No results for input(s): NA, CL, BUN, GLUCOSE, K, BICARBONATE, CREATININE, CALCI UM, MG, PHOS, ALBUMIN, PREALBUMIN in the last 168 hours. Interview: T/W visited patient in her room. Nursing entered and spoke to patient about menu. Per nursing patient has had many complaints about her meals and men u. Starting today staff will be making a copy of patient's completed menu to luis m p on the unit. If patient has a question about her meals the menu will be there for reference and clarification. Patient is aware of this new arrangement. T/W a ttempted to confirm identified weight loss and possible reasons. Patient mg galdamez said she used to weigh 185# earlier this year. (Per documentation this is c onfirmed.) Regarding possible reason patient stated people have been trying to p oison her with many different elements. Patient also mentioned details of signif icant family issues effecting her life, including that her daughter is missing. Patient tells t/w she is fine eating here as the people who were poisoning her a re not here. Despite complaints per documentation patient is eating and drinking. Medications noted. Learning or discharge needs identified: None. Height: 152.4 cm Weight: 66.5 kg (146 lb 9.6 oz) Weight Method: Actual: Stand- up scale Body Mass Index: Body mass index is 28.63 kg/m. IBW Range (kg): 45.5 Weight change: 13# / 8.2% loss x 1 month, 37# / 20.23% loss x 6 months 03/31/2020 83 kg ([facility]) Vitals - 1 value per visit Weight (kg) 08/12/2020 72.122 kg 09/11/2020 66.497 kg Obesity or underweight? No Malnutrition Identified: No Malnutrition Criteria: Meets weight loss criteria - however unable to confirm se cond criteria at this time. Skin: Other: Per annotated image: "Generalized small sores" Nutrition Obstacles: Alcohol/Drug and Mental State Energy/Protein Requirement based on: 66.5 kg (Current - stand up scale) Current Protein Needs: 1-1.2 g per kg body wt. = 67-80 g Current Energy Needs: 25-27 kcal per kg body wt. = 1387-0697 kcal Estimated Fluid Needs: 1 ml/kcal = No intake/output data recorded. No intake/output data recorded. Nutrition Diagnostic Statement(s): Current nutritional risk is Low. Patient is found to have suspected inadequate intake of calories and protein rel ated to reports of significant stressors in life as evidenced by involuntary bruna ght loss. Nutrition Intervention(s): Nutrition Prescription/Diet Order: Regular and Meals & Snacks: as per unit policy Nutrition Goal(s)/Outcome(s): Patient will maintain weight. Patient's intake will be maintained at ~75% or more daily. Refer to Patient Education for current learning assessment and patient education needs. Refer to Care Plan for Interdisciplinary Care Plan documentation. Recommendations: 1. Regular diet. 2. Snacks per unit policy. 3. Consistently select meals to maximize choice and intake. Monitoring/Evaluation: Labs, Pt care rounds, Weight, Change in appetite/intake pattern, Course and Plan of Care. Nutrition will continue to monitor and assist as indicated. * Isabella Park RN - 09/13/2020 5:05 AM EDT RN Note: Patient appeared to be sleeping throughout the night, respirations easy , even, unlabored, position change noted. Frequent checks maintain. * Gasper Torres, PharmD - 09/12/2020 12:24 PM EDT Pharmacist completed patient's medication reconciliation while patient was prese nt in 5W Source of med rec information: (jamey X for all sources) [X] Patient [ ] Patient/Family provided written list [ ] Patient's family member [X] Pharmacy database (david, Dr. Tellez [facility]) [ ] Doctor's office [ ] Outpatient pharmacy ([facility] called to confirm medication list) [ ] Recent Hospital Discharge Summary [ ] Prescription bottles (patient brought with them) [facility] [place] Of note: Patient was not consistent in discussing medications and when she last took her medications. According to her, she hasn't had any medications in August (despite h aving filled medication in August per [facility]) as they were either cancelled o r stolen. The medications listed have recent fills and she states that she was t aking them in July. However, her recollection later changed to not having access to them in July. Patient's Home Medication List: Prior to Admission medications Medication Sig Buprenorphine HCl-Naloxone HCl 8-2 MG Sublingual Film (SUBOXONE) Place 2 Film un harjinder the tongue daily levetiracetam (KEPPRA) 1000 MG tablet Take 1,000 mg by mouth Two Times Daily Asenapine Maleate 10 MG Sublingual Tablet Sublingual (SAPHRIS) Place 1 tablet un harjinder the tongue Two Times Daily Benztropine Mesylate 1 MG Oral Tablet (COGENTIN) Take 1 tablet by mouth Two time s daily as needed Disclaimer: Medication history was completed based on information available aryan [place] this patient encounter. The list above may not be all inclusive, including, b ut not limited to: over the counter medications, [facility] locations, medication samples from provider office, etc. Associated attestation - Pablo Lemus NP - 09/12/2020 7:08 PM EDT Aknowledged and approved * Urszula Muñiz RN - 09/12/2020 10:24 AM EDT RN Shift Note [id number] Assumed care of patient at 0730. Patient is irritable and drowsy upon approach. She is compliant with scheduled medications. She complained of headache 12/05, myrna blanco made aware; requesting PRN analgesics. She described her mood as "not we ll" reporting that she has no energy and has been lying in bed "for days." Blood pressure 92/54. Denies dizziness, refused to sit up for re-check of pressure. S he was instructed to change positions slowly as she may become dizzy, and to inc rease fluid intake and notify staff if symptoms were to occur, she is agreeable to this. No unsafe behaviors. 15 minute observations maintained for safety. Will continue to monitor. * Melissa Hodgson RN - 09/12/2020 3:51 AM EDT Received patient care at 2330: Patient appeared to be asleep for the majority of the shift.Patient voiced n o safety concerns.Patient remains on 15 minute safety checks will continue to mo nitor for safety. Report given to oncoming shift. * Beth Long RN - 09/11/2020 5:55 PM EDT Belongings Inventoried Locked In Patient Belongings Bin: Visa gift card in a sealed bag Toothbrush x 2 Gutierrez sweat pants with strings Pair black nike sneakers Pair gutierrez socks Bottle of shampoo Pen Blue welder/fabricator Purse; pen, fake fingernails, brush, assorted papers, [employer] card, visa debit card, ACR health card x 2, hydrocortisone cream Given to Patient: notebook Red long sleeve shirt Belongings Sent to Inpatient Safe: none Belongings Sent to Inpatient Pharmacy: yes * Beth Long RN - 09/11/2020 4:34 PM EDT Images from the original note were not included. Admission Note: Patient arrived at 1634 from [facility] on a 9.37 legal status. Patient wanded per protocol. VS WNL. Patient was cooperative and compliant with the admission process. Patient was supplied with a unit guide book and their bel ongings were sorted and appropriate items were given to the patient. Status and rights given to patient. Patient was given toiletries and linens. Will continue to monitor and provide for safety. Consent form placed in chart. 15 minute check s initiated upon arrival to the unit. Presentation: pt states mood as "terrbile, I'm being poisoned with battery acid" and "my intestines are hurting, I have leukemia", affect labile. Thought process slightly paranoid. states "worried that someone killed my daughter" and "my mom and sister are preventing me from getting my medications". Pt cooperative with admission process; rapid speech and rambling throught content. Denies SI/HI/AVH. States pain in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 min checks Problem: Suicide Goal: Reduce or eliminate suicidal ideation Outcome: Progressing Goal: Patient will comply with medication regimen Description: Patient will work with staff to learn medication education for new /unfamiliar medications. Outcome: Progressing Goal: Patient will verbalize 2 positive coping skills to help deal with negative thoughts and feelings Description: As evidenced by coping strategies Outcome: Progressing Goal: Patient will complete a contract for safety Description: Patient will refrain from self-harm Outcome: Progressing * Plan of Care - Nitza Mireles RN - 09/12/2020 12:30 PM EDT Took over care of pt at 1100. She is cooperative upon approach but says she does not feel well. Submitted urine sample. Pt aware when meds are starting. Continu e to monitor pt closely. * Plan of Care - Urszula Muñiz RN - 09/12/2020 10:19 AM EDT Problem: Psych Acuity Scoring Goal: Acuity Scoring Description: Acuity Scoring for Psych Outcome: Progressing Problem: Suicide Goal: Reduce or eliminate suicidal ideation Outcome: Progressing Goal: Patient will comply with medication regimen Description: Patient will work with staff to learn medication education for new /unfamiliar medications. Outcome: Progressing Goal: Patient will verbalize 2 positive coping skills to help deal with negative thoughts and feelings Description: As evidenced by coping strategies Outcome: Progressing Goal: Patient will complete a contract for safety Description: Patient will refrain from self-harm Outcome: Progressing * Plan of Care - Ketty Alcala MD - 09/12/2020 2:44 AM EDT Psychiatric Treatment Plan Patient Melissa Lee 1985 Admit Date 09/11/2020 Treatment Plan Treatment Plan (Active) Problem: Psych Acuity Scoring Dates: Start: 09/11/20 Goal: Acuity Scoring Dates: Start: 09/11/20 Description: Acuity Scoring for Psych Problem: Suicide Dates: Start: 09/11/20 Description: As evidenced by suicidal thoughts, suicidal plan, and intent to fo llow through with plan. Goal: Reduce or eliminate suicidal ideation Dates: Start: 09/11/20 Expected End: 09/18/20 Goal: Patient will comply with medication regimen Dates: Start: 09/11/20 Expected End: 09/18/20 Description: Patient will work with staff to learn medication education for ne w/unfamiliar medications. Intervention: Staff will offer medications as scheduled Frequency: Q Shift Dates: Start: 09/11/20 Description: Nurse on shift will document patient's acceptance and response to medications Intervention: Staff will identify the need for PRN medication Frequency: PRN Dates: Start: 09/11/20 Description: Nurse on shift will encourage patient to identify symptoms of incr eased agitation/irritability requiring medications Goal: Patient will verbalize 2 positive coping skills to help deal with negativ e thoughts and feelings Dates: Start: 09/11/20 Expected End: 09/18/20 Description: As evidenced by coping strategies Intervention: Staff will provide 1:1 therapeutic communication and assess patie nts mood Frequency: Daily Dates: Start: 09/11/20 Description: RN, RT, or OT will monitor and record mood/behavior Intervention: Staff will encourage patient to attend groups Frequency: Daily Dates: Start: 09/11/20 Description: Patient should attend therapy group Goal: Patient will complete a contract for safety Dates: Start: 09/11/20 Expected End: 09/18/20 Description: Patient will refrain from self-harm Intervention: Staff will encourage patient to verbalize feelings Frequency: Q Shift Dates: Start: 09/11/20 Description: RN will meet with patient to assess patient's safety and engage pa tient in a verbal contract for safety Intervention: Staff will maintain a safe and therapeutic milieu Frequency: Daily Dates: Start: 09/11/20 Description: Frequent or routine checks to maintain safety and monitor behavior Treatment Plan (Resolved) There are no resolved problems. Treatment Team: Attending Provider: Petr Hood MD; Registered Nurse: Orlando Long, ROSITA; Registered Nurse: Melissa Hodgson RN I have reviewed and agree that the above treatment plan is appropriate for Melissa Lee. Signature: Melissa Hodgson Date: September 12, 2020 2:45 AM Considering inpatient rehab/director long term care inpatient hospitalization at [facility] documented in this encounter Plan of Treatment Order Schedule Name Type Priority Associated Diag noses Continuous for 30 Days for 30 Days start ing 09/11/2020 until 09/11/2020 Consult to Assisted PET Rehab Routine Therapy-Rehab/Psych Health Maintenance Due Date Last Done Comments MMR Vaccines (1 of - 06/19/1988 Standard series) Varicella Vaccines (1 of 06/19/1988 2 - 2-dose childhood series) Pneumococcal Vaccine: 65+ 06/19/1993 Years (1 of 2 - PPSV23) Pneumococcal Vaccine: 06/19/1993 Pediatrics (0 to 5 Years) and At-Risk Patients (6 to 64 Years) (1 of 2 - PPSV23) DTaP,Tdap,and Td Vaccines 06/19/1994 (1 - Tdap) HIV Screening 06/19/2000 Cervical Cancer Screening 06/19/2008 5 years Influenza Vaccine 11/26/2020 12/13/2018 Hepatitis A Vaccines Aged Out 11/15/2018 No longer eligible based on patient's age to complete this topic HIB Vaccines Aged Out No longer eligible based on patient's age to complete this topic Hepatitis B Vaccines Aged Out No longer eligibl e based on patient's age to complete this topic IPV Vaccines Aged Out No longer eligible based on patient's age to complete this topic documented as of this encounter Procedures Comments Procedure Name Priority Date/Time Associated Diag nosis EKG 12-LEAD - CMAXX 09/22/2020 REPORT 8:46 PM EDT EKG 12-LEAD - CMAXX 09/22/2020 REPORT 8:46 PM EDT EKG 12-LEAD Routine 09/22/2020 8:46 PM EDT URINALYSIS WITH Routine 09/18/2020 MICROSCOPIC 3:48 PM EDT VITAMIN D 25 HYDROXY, Routine 09/17/2020 TOTAL 7:10 AM EDT CBC AND DIFFERENTIAL Routine 09/17/2020 7:10 AM EDT TSH Routine 09/17/2020 7:10 AM EDT HEMOGLOBIN A1C Routine 09/17/2020 7:10 AM EDT LIPID PANEL Routine 09/17/2020 7:10 AM EDT COMPREHENSIVE METABOLIC Routine 09/17/2020 PANEL 7:10 AM EDT AMPLIFIED GC AND Routine 09/12/2020 CHLAMYDIA 11:57 AM EDT URINALYSIS WITH Routine 09/12/2020 MICROSCOPIC 11:57 AM EDT URINE CULTURE Routine 09/12/2020 11:57 AM EDT documented in this encounter Results * EKG 12-LEAD - CMAXX REPORT (09/22/2020 8:46 PM EDT) Narrative Performed At This result has an attachment that is n ot available. * EKG 12-LEAD - CMAXX REPORT (09/22/2020 8:46 PM EDT) Narrative Performed At This result has an attachment that is n ot available. * EKG 12 Lead (09/22/2020 8:46 PM EDT) Specimen Narrative Performed At Ventricular Rate: [facility] EKG 74 BPM Atrial Rate: 74 BPM P-R Interval: 160 ms QRS Duration: 84 ms Q-T Interval: 418 ms QTC Calculation(Bazett): 463 ms P [place]: 62 degrees R [place]: 39 degrees T [place]: 40 degrees : SINUS RHYTHM : NORMAL ECG : NO PREVIOUS ECGS AVAILABLE : Confirmed by Ahsan Orr ([id number]) on 09/23/2020 10:10:00 PM Procedure Note Interface, Received Via [employer] - 09/23/2020 10:10 PM EDT Ventricular Rate: 74 BPM Atrial Rate: 74 BPM P-R Interval: 160 ms QRS Duration: 84 ms Q-T Interval: 418 ms QTC Calculation(Bazett): 463 ms P [place]: 62 degrees R [place]: 39 degrees T [place]: 40 degrees : SINUS RHYTHM : NORMAL ECG : NO PREVIOUS ECGS AVAILABLE : Confirmed by Ahsan Orr ([id number]) on 09/23/2020 10:10:00 PM Performing Organization Address City/State/ZIP Code P viki Number [facility] EKG * Urinalysis with microscopic (09/18/2020 3:48 PM EDT) Color Colorless [facility] at Clarity Clear [facility] at Specific 1.004 1.003 - 1.030 [facility] [place] [facility] at PH Urine 8.0 5.0 - 8.0 [facility] at Total Protein Negative Negative mg/dL [facility] UA [facility] at Glucose UA Negative Negative mg/dL [facility] at Ketone Urine Negative Negative mg/dL [facility] at Bilirubin Negative Negative [facility] at Hemoglobin, Negative Negative [facility] Urine [facility] at CG Leukocyte Negative Negative Matt/uL [facility] Esterase [facility] at CG Nitrite Negative Negative [facility] at WBC 1 0 - 5 /HPF [facility] at RBC None 0 - 3 /HPF [facility] at Squam Epithel, 1 (A) None /HPF [facility] at Specimen Urine Performing Organization Address City/State/ZIP Code P viki Number [facility] PATHOLOGY AT [facility] [place] [address] [facility] [address] [place] [address] at CG * TSH (09/17/2020 7:10 AM EDT) TSH 1.400 0.27 - 4.20 u[IU]/mL [facility] ate [facility] at Specimen Plasma Performing Organization Address City/[facility] Code P viki Number [facility] PATHOLOGY AT [address] [place] [id number] [facility] [address] [place] [phone] at CG * Comprehensive Metabolic Panel (09/17/2020 7:10 AM EDT) Albumin 4.0 3.5 - 5.2 g/dL [facility] at Bilirubin, <0.2 <1.2 mg/dL [facility] Total [facility] at CG Calcium 9.3 8.6 - 10.0 mg/dL [facility] at Chloride 101 98 - 107 mmol/L [facility] at Creatinine 0.66 0.50 - 0.90 mg/dL [facility] at Glucose 115 70 - 140 mg/dL [facility] at Alkaline 59 35 - 104 U/L [facility] Phosphatase [facility] at CG Potassium 4.2 3.4 - 5.1 mmol/L [facility] at Total Protein 6.5 6.4 - 8.3 g/dL [facility] at Sodium 138 136 - 145 mmol/L [facility] at AST/SGO 16 <32 U/L [facility] at Blood Urea 13 6 - 20 mg/dL [facility] at Osmolality, Fadi 287 275.0 - 300.0 [facility] mosm/kg [facility] at BUN/Cre Ratio 20 [facility] at Bicarbonate 27 22 - 29 mmol/L [facility] at ALT/SGP 13 <33 U/L [facility] at Anion Gap 9 8 - 15 mmol/L [facility] at GFR Non >90 >60 mL/min/1.73m2 [facility] e [place] [facility] at CDK-EPI CG GFR >90 >60 mL/min/1.73m2 [facility] 2008 [facility] at CKD-EPI CG Specimen Plasma Performing Organization Address City/[facility]/ZIP Code P viki Number [facility] PATHOLOGY AT [address] [place] [phone] [address] at CG * Lipid panel (09/17/2020 7:10 AM EDT) Cholesterol 169 <200 mg/dL [facility] at Triglyceride 229 (H) <150 mg/dL [facility] at HDL Cholesterol 38 (L) >50 mg/dL [facility] at LDL Cholesterol 85 <100 mg/dL [facility] at VLDL 46 (H) 16 - 42 mg/dl [facility] at Non HDL 131 (H) <130 mg/dL [facility] at Specimen Plasma Performing Organization Address City/[facility]/ZIP Code P viki Number [facility] PATHOLOGY AT [address] [place] [phone] [address] at CG * Hemoglobin A1c (09/17/2020 7:10 AM EDT) Hemoglobin A1C 4.9 4.0 - 6.0 % [facility] at Estimated Avg 94 <126 mg/dL [facility] Glucose [facility] at Specimen Whole Blood Performing Organization Address City/[facility]/ZIP Code P viki Number [facility] PATHOLOGY AT [address] [place] [phone] [address] at CG * Vitamin D 25 Hydroxy, Total (09/17/2020 7:10 AM EDT) Vitamin D 25 39 >30 ng/mL [facility] Hydroxy, TOTAL Med Univ Clin Pathology Specimen Serum Performing Organization Address City/State/ZIP Code P viki Number [facility] [address] [place], [place] [address] PATHOLOGY [facility] [address] [place], [place] [address] Clin Pathology * CBC and Differential (09/17/2020 7:10 AM EDT) White Blood 4.6 4.00 - 10.00 10*3/uL [facility] ate Cell [facility] at Red Blood Cell 4.27 4.10 - 5.30 10*6/uL [facility] Medical [facility] at Hemoglobin 12.5 11.5 - 15.5 g/dL [facility] at Hematocrit 37.5 36.0 - 45.0 % [facility] at Mean Cell 87.8 80.0 - 96.0 fL [facility] Volume [facility] at Mean Cell 29.2 27.0 - 33.0 pg [facility] Hemoglobin [facility] at Mean Cell Hgb 33.3 32 - 36 g/dL [facility] Conc [facility] at Red Cell Dist 14.0 11.5 - 14.5 % [facility] Width [facility] at Platelet Count 261 150 - 400 10*3/uL [facility] at Differential Automated Diff [facility] Type [facility] at Neutrophil 32 % [facility] at Lymphocyte 55 % [facility] at Monocyte 9 % [facility] at Eosinophil 3 % [facility] at Basophil 1 % [facility] at Abs Neutrophil 1.46 (L) 1.80 - 7.00 10*3/uL [facility] at Abs Lymphocyte 2.51 1.20 - 4.00 10*3/uL [facility] at Abs Monocyte 0.43 0.00 - 0.80 10*3/uL [facility] at Abs Eosinophil 0.16 0.00 - 0.50 10*3/uL [facility] Medical [facility] at Abs Basophil 0.03 0.00 - 0.20 10*3/uL [facility] at Nucleated Red 0 0 - 0 /100{WBCs} [facility] Blood Cells [facility] at Specimen EDTA Whole Blood Performing Organization Address City/State/ZIP Code P viki Number [facility] PATHOLOGY AT [address] [place] [address] [place] [address] at * Amplified GC and Chlamydia (09/12/2020 11:57 AM EDT) Special Request None [facility] at Culture/Results 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 Specimen Urine Performing Organization Address City/State/ZIP Code P viki Number [facility] [address] [place], [place] [address] [address] Clin Pathology * Urine Culture ; Urine (09/12/2020 11:57 AM EDT) Special Request None [facility] at Culture/Results NO GROWTH [facility] Clin Pathology Specimen Urine Performing Organization Address City/[facility]/ZIP Code P viki Number [facility] [address] [place], [place] [address] [address] Clin Pathology * Urinalysis with microscopic (09/12/2020 11:57 AM EDT) Color Yellow [facility] at Clarity Clear [facility] at Specific 1.012 1.003 - 1.030 [facility] [place] [facility] at PH Urine 7.0 5.0 - 8.0 [facility] at Total Protein Negative Negative mg/dL [facility] UA [facility] at Glucose UA Negative Negative mg/dL [facility] at Ketone Urine Negative Negative mg/dL [facility] at Bilirubin Negative Negative [facility] at Hemoglobin, 2+ (A) Negative [facility] Urine [facility] at Leukocyte Negative Negative Matt/uL [facility] Esterase [facility] at Nitrite Negative Negative [facility] at WBC None 0 - 5 /HPF [facility] at RBC 7 (H) 0 - 3 /HPF [facility] at Specimen Urine Performing Organization Address City/State/ZIP Code P viki Number [facility] PATHOLOGY AT [address] [place] [phone] [address] at documented in this encounter Visit Diagnoses Diagnosis Psychosis - Primary Unspecified psychosis Suicidal ideation Schizoaffective disorder, bipolar type by history Schizoaffective disorder, unspecified c ondition Hospitalization within last 30 days History of drug use-self reported documented in this encounter Administered Medications Action Date Dose Rate Site Medication Order MAR Action 09/28/2020 3:07 PM EDT 650 mg acetaminophen (TYLENOL) tablet 650 mg Given 650 mg, Oral, Every 6 hours PRN, Mild Pain (Pain Scale Score 1-3), Starting o n Sun09/13/20 at 2018, For 30 days, Maximum daily dose of acetaminophen is 3,000 mg from all sources in 24 hours. 650 mg Given 09/28/2020 9:31 AM EDT 650 mg Given 09/27/2020 8:39 AM EDT 09/29/2020 8:33 AM EDT 1 mg benztropine (COGENTIN) tablet 1 mg Given 1 mg, Oral, 2 Times Daily PRN, Tremor, Starting on Sun09/11/20 at 1638, For 30 days 1 mg Given 09/28/2020 3:05 PM EDT 1 mg Given 09/27/2020 11:30 AM EDT bisacodyl (DULCOLAX) suppository 10 mg 10 mg, Rectal, Every 72 hours PRN, Constipation, Starting on Sun09/13/20 a t 0849, For 30 days, Hold if patient has had BM within the past 2 days. 09/29/2020 9:17 AM EDT 2 Film buprenorphine-naloxone (SUBOXONE) 8-2 MG Given per sublingual film 2 Film 2 Film, Sublingual, Daily Standard, First dose (after last reorder) on Sun09/29/20 at 0900, For 7 days 09/29/2020 8:31 AM EDT 100 mg chlorproMAZINE (THORAZINE) tablet 100 mg Given 100 mg, Oral, 2 Times Daily, First dose (after last modification) on Sun09/27/20 at 2100, For 30 doses 100 mg Given 09/28/2020 8:07 PM EDT 100 mg Given 09/28/2020 9:31 AM EDT 09/29/2020 8:31 AM EDT 10 mg citalopram (CELEXA) tablet 10 mg Given 10 mg, Oral, Daily Standard, First dos e on Sun09/19/20 at 0900, For 30 days 10 mg Given 09/28/2020 9:31 AM EDT 10 mg Given 09/27/2020 8:35 AM EDT 09/27/2020 11:30 AM EDT 0.1 mg cloNIDine (CATAPRES) tablet 0.1 mg Given 0.1 mg, Oral, Three Times Daily-PRN, anxiety, Indications: Attention Deficit Hyperactivity Disorder, Starting on 09/12/20 at 1210, For 30 days 0.1 mg Given 09/25/2020 6:48 AM EDT 0.1 mg Given 09/24/2020 5:43 PM EDT docusate sodium (COLACE) capsule 100 mg 100 mg, Oral, 2 Times Daily PRN, Constipation, Starting on Sun09/13/20 a t 0849, For 30 days 09/29/2020 8:31 AM EDT 600 mg gabapentin (NEURONTIN) capsule 600 mg Given 600 mg, Oral, Three Times Daily Standard, Indications: substance use anxiety, First dose (after last modification) on Chari 09/23/20 at 1500, For 57 doses 600 mg Given 09/28/2020 8:07 PM EDT 600 mg Given 09/28/2020 3:05 PM EDT 09/27/2020 11:30 AM EDT 50 mg hydrOXYzine (ATARAX) tablet 50 mg Given 50 mg, Oral, Every 6 hours PRN, Itching, Starting on 09/12/20 at 1210, For 700 hours 50 mg Given 09/24/2020 5:43 PM EDT 50 mg Given 09/22/2020 2:50 PM EDT 09/29/2020 8:31 AM EDT 1,000 mg levetiracetam (KEPPRA) tablet 1,000 mg Given 1,000 mg, Oral, 2 Times Daily, First dose on Sun09/11/20 at 2100, For 81 doses 1,000 mg Given 09/28/2020 8:07 PM EDT 1,000 mg Given 09/28/2020 9:31 AM EDT magnesium hydroxide (MILK OF MAGNESIA) 400 MG/5ML oral suspension 45 mL 45 mL, Oral, Nightly PRN, Constipation , Starting on Sun09/13/20 at 0849, For 30 days, If serum creatinine > 2 notify provider before administering. 09/29/2020 10:55 AM EDT 2 mg nicotine (NICORETTE) lozenge 2 mg Given 2 mg, Mouth/Throat, Every 2 hours PRN , Smoking cessation, Starting on Sun09/15/20 at 1022, For 30 days, Should no t be chewed or swallowed; allow to dissolve slowly (~20-30 minutes) 2 mg Given 09/29/2020 8:34 AM EDT 2 mg Given 09/28/2020 8:07 PM EDT senna tablet 2 tablet 2 tablet, Oral, Nightly PRN, Constipation, Starting on Sun09/13/20 a t 0849, For 30 days 09/24/2020 8:19 PM EDT 50 mg trazodone (DESYREL) tablet 50 mg Given 50 mg, Oral, Nightly PRN, Sleep, Starting on 09/12/20 at 1211, For 30 days 50 mg Given 09/20/2020 9:54 PM EDT 50 mg Given 09/19/2020 9:11 PM EDT Action Date Dose Rate Site Medication Order MAR Action 09/15/2020 9:27 AM EDT 5 mg Asenapine Maleate (SAPHRIS) SL tablet 5 Given mg 5 mg, Sublingual, 2 Times Daily, First dose on Sun09/12/20 at 2100, For 30 day s 5 mg Given 09/14/2020 8:48 PM EDT 5 mg Given 09/14/2020 8:48 AM EDT 09/28/2020 9:31 AM EDT 2 Film buprenorphine-naloxone (SUBOXONE) 8-2 MG Given per sublingual film 2 Film 2 Film, Sublingual, Daily Standard, First dose (after last modification) on 09/11/20 at 2045, For 18 doses 2 Film Given 09/27/2020 8:36 AM EDT 2 Film Given 09/26/2020 9:47 AM EDT 09/25/2020 2:11 PM EDT 100 mg chlorproMAZINE (THORAZINE) injection 100 Given mg 100 mg, Intramuscular, Once, On 09/25/20 at 1400, For 1 dose 09/27/2020 1:09 PM EDT 100 mg Right De ltoid chlorproMAZINE (THORAZINE) injection 100 Given mg 100 mg, Intramuscular, Once, On Sun09/27/20 at 1300, For 1 dose, May be give n over objection 09/26/2020 8:44 PM EDT 100 mg chlorproMAZINE (THORAZINE) tablet 100 mg Given 100 mg, Oral, Nightly, First dose (afte r last modification) on Sun09/23/20 at 2200, For 28 doses 100 mg Given 09/25/2020 8:39 PM EDT 100 mg Given 09/24/2020 8:19 PM EDT 09/21/2020 2:30 PM EDT 25 mg chlorproMAZINE (THORAZINE) tablet 25 mg Given 25 mg, Oral, Three Times Daily Standard, First dose on Sun09/15/20 at 1215, For 30 days 25 mg Given 09/21/2020 7:32 AM EDT 25 mg Given 09/20/2020 8:04 PM EDT 09/27/2020 8:32 AM EDT 25 mg chlorproMAZINE (THORAZINE) tablet 25 mg Given 25 mg, Oral, 2 Times Daily, First dose (after last modification) on Sun 1 at 1500, For 30 doses 25 mg Given 09/26/2020 4:24 PM EDT 25 mg Given 09/26/2020 9:48 AM EDT 09/22/2020 8:27 PM EDT 50 mg chlorproMAZINE (THORAZINE) tablet 50 mg Given 50 mg, Oral, Nightly, First dose on Sun09/21/20 at 2200, For 30 days 50 mg Given 09/21/2020 8:02 PM EDT 09/25/2020 2:11 PM EDT 50 mg diphenhydrAMINE (BENADRYL) injection 50 Given mg 50 mg, Intramuscular, Once, On [facility] 09/25/20 at 1400, For 1 dose 09/14/2020 8:48 AM EDT 300 mg gabapentin (NEURONTIN) capsule 300 mg Given 300 mg, Oral, Three Times Daily Standard, Indications: substance use anxiety, First dose on Sun09/12/20 at 1700, For 30 days 300 mg Given 09/13/2020 7:58 PM EDT 300 mg Given 09/13/2020 5:27 PM EDT 09/23/2020 7:35 AM EDT 400 mg gabapentin (NEURONTIN) capsule 400 mg Given 400 mg, Oral, Three Times Daily Standard, Indications: substance use anxiety, First dose (after last modification) on Sun09/14/20 at 1700, For 84 doses 400 mg Given 09/22/2020 8:27 PM EDT 400 mg Given 09/22/2020 2:44 PM EDT 09/21/2020 10:05 PM EDT 400 mg ibuprofen (MOTRIN) tablet 400 mg Given 400 mg, Oral, Once, On Sun09/21/20 at 2130, For 1 dose, Take with food. 09/15/2020 9:29 AM EDT 1 patch Left Arm nicotine (NICODERM CQ) 21 MG/24HR 1 Patch patch Applied 1 patch, Transdermal, Administer over 2 4 Hours, Daily Standard, First dose on Sun09/13/20 at 0900, For 30 days 1 patch Right Arm Patch Applied 09/14/2020 8:49 AM EDT 1 patch Left Arm Patch Applied 09/13/2020 7:56 AM EDT 09/25/2020 9:32 AM EDT 10 mg OLANZapine (ZYPREXA) injection 10 mg Given 10 mg, Intramuscular, Once, On 09/25/20 at 0915, For 1 dose, Reconstitute 10 mg vial with 2.1 mL SWFI; resulting solution is ~5 mg/mL; Use within 1 hour following reconstitution. documented in this encounter Active and Recently Administered Medications Times are shown in EDT. 09/28/2020 09/29/2020 Medication Order 09/27/2020 0931 (Given - Provider: Kimberli hopson RN) buprenorphine-naloxone (SUBOXONE) 8-2 MG 0836 (Given - per sublingual film 2 Film (COMPLETED) Provider: Annabel choi 2 Film, Sublingual, Daily Standard, ROSITA Mireles) First dose (after last modification) on Sun09/11/20 at 2045, For 18 doses 0917 (Given - Provider: Kimberli hopson RN) buprenorphine-naloxone (SUBOXONE) 8-2 M G per sublingual film 2 Film 2 Film, Sublingual, Daily Standard, First dose (after last reorder) on Sun09/29/20 at 0900, For 7 days chlorproMAZINE (THORAZINE) injection 100 1309 (Given - mg (COMPLETED) Provider: Dali 100 mg, Intramuscular, Once, On Sun ROSITA Reyna - 09/27/20 at 1300, For 1 dose, May be given Comment: charles abbott) over objection 0931 (Given - Provider: Kimberli hopson RN)2006 (Given - Provider: Ron Zhang, ROSITA) 08 (Given - Provider: Kimberli hopson RN)2100 (Due) chlorproMAZINE (THORAZINE) tablet 100 mg 213 (Given - 100 mg, Oral, 2 Times Daily, First dose Provider: Lizzy Patel (after last modification) on Sun09/27/20 ROSITA Chicas) at 2100, For 30 doses chlorproMAZINE (THORAZINE) tablet 25 mg 0832 (Given - (CANCELED) Provider: Nitza 25 mg, Oral, 2 Times Daily, First dose ROSITA Mireles) (after last modification) on Sun 1 at 1500, For 30 doses 09 (Given - Provider: Kimberli hopson RN) 830 (Given - Provider: Kimberli hopson RN) citalopram (CELEXA) tablet 10 mg 0835 (Given - 10 mg, Oral, Daily Standard, First dose Provider: Navi salmeron on Sun09/19/20 at 0900, For 30 days ROSITA Mireles) 09 (Given - Provider: Kimberli hopson RN)1505 (Given - Provider: Kimberil Butcher RN)2006 (Given - Provider: Ron Zhang RN) 08 (Given - Provider: Kimberli hopson RN)1600 (Due - Provider: Char Smith, ROSITA)2100 (Due - Provider: Char Smith RN) gabapentin (NEURONTIN) capsule 600 mg 0833 (Given - 600 mg, Oral, Three Times Daily Provider: Nitza Standard, Indications: substance use Chi RN)17 33 anxiety, First dose (after last (Given - Provider: modification) on Sun09/23/20 at 1500, Charo kelsey, For 57 doses RN)213 (Given - Provider: Eleazar Chicas RN) 930 (Given - Provider: Kimberli hopson RN)2006 (Given - Provider: Ron Zhang, ROSITA) 0831 (Given - Provider: Kimberli hopson RN)2100 (Due) levetiracetam (KEPPRA) tablet 1,000 mg 0833 (Given - 1,000 mg, Oral, 2 Times Daily, First Provider: Dorie nunez dose on 09/11/20 at 2100, For 81 ROSITA Mireles)213 5 doses (Given - Provider: Eleazar Chicas RN) 09/28/2020 09/29/2020 Medication Order 09/27/2020 0931 (Given - Provider: Kimberli hopson RN)1507 (Given - Provider: Kimberli Butcher RN - Comment: headache) acetaminophen (TYLENOL) tablet 650 mg 0839 (Given - 650 mg, Oral, Every 6 hours PRN, Mild Provider: Alex tabor Pain (Pain Scale Score 1-3), Starting on Colten Mireles) 09/13/20 at 2018, For 30 days, Maximum daily dose of acetaminophen is 3,000 mg from all sources in 24 hours. 1505 (Given - Provider: Kimberli hopson RN) 0833 (Given - Provider: Kimberli hopson RN) benztropine (COGENTIN) tablet 1 mg 1130 (Given - 1 mg, Oral, 2 Times Daily PRN, Tremor, Provider: Kiana Diaz Starting on 09/11/20 at 1638, For 30 ROSITA Butcher ) days bisacodyl (DULCOLAX) suppository 10 mg 10 mg, Rectal, Every 72 hours PRN, Constipation, Starting on Sun09/13/20 a t 0849, For 30 days, Hold if patient has had BM within the past 2 days. cloNIDine (CATAPRES) tablet 0.1 mg 1130 (Given - 0.1 mg, Oral, Three Times Daily-PRN, Provider: Gertrude Whittaker anxiety, Indications: Attention Deficit ROSITA Butcher ) Hyperactivity Disorder, Starting on 09/12/20 at 1210, For 30 days docusate sodium (COLACE) capsule 100 mg 100 mg, Oral, 2 Times Daily PRN, Constipation, Starting on Sun09/13/20 a t 0849, For 30 days hydrOXYzine (ATARAX) tablet 50 mg 1130 (Given - 50 mg, Oral, Every 6 hours PRN, Provider: Kimberli Diaz Itching, Starting on 09/12/20 at ROSITA Butcher) 1210, For 700 hours magnesium hydroxide (MILK OF MAGNESIA) 400 MG/5ML oral suspension 45 mL 45 mL, Oral, Nightly PRN, Constipation , Starting on 09/13/20 at 0849, For 30 days, If serum creatinine > 2 notify provider before administering. 1010 (Given - Provider: Chantell Randhawa LPN)1507 (Given - Provider: Kimberli Butcher, RN)2007 (Given - Provider: Ron Zhang, ROSITA) 0834 (Given - Provider: Kimberli hopson RN)1055 (Given - Provider: August Wesley RN) nicotine (NICORETTE) lozenge 2 mg 0650 (Given - 2 mg, Mouth/Throat, Every 2 hours PRN, Provider: Myrna Diaz Smoking cessation, Starting on Sun Shawn, GN)1236 (Gi nora 09/15/20 at 1022, For 30 days, Should not - Provider: Nitza be chewed or swallowed; allow to ROSITA Mireles) dissolve slowly (~20-30 minutes) senna tablet 2 tablet 2 tablet, Oral, Nightly PRN, Constipation, Starting on 09/13/20 a t 0849, For 30 days trazodone (DESYREL) tablet 50 mg 50 mg, Oral, Nightly PRN, Sleep, Starting on 09/12/20 at 1211, For 30 days documented in this encounter
--- OUTSIDE RECORDS SUMMARY | 2020-12-19 10:45 | CCD | Continuity of Care Document ---
Author Author [facility] Organization [facility] Address Unknown Phone Unavailable Care Team Providers Care Cake Wringer Name Role Phone Dwello Luz Elena MIKE Unavailable Unavailable Allergies, Adverse Reactions, Alerts Substance Reaction Status Criticality Penicillins Active No Information Medications Medication Instructions Dosage Effective Dates (start - stop) Sta tus Comments methadone 5 mg tablet take 1 tablet by oral route every 8 hours 5 MG - Active 20 mg nortriptyline 75 mg capsule take 1 capsule by oral route every day 75 MG - Active Benadryl 25 mg capsule take 2 capsule by oral route every 4 - 6 hours as needed 50 MG - Active CHLORPROMAZINE HCL (unknown strength) take 1 tablet by oral route 2 times every day Not Available - Active unknown dosage gabapentin 100 mg capsule - Active Keppra 250 mg tablet - Active Problems Condition Effective Dates (start - stop) Clinical Status C omments Delusional disorders Other sex counseling Encounter for oth general cnsl and advice on contraception Encounter for initial prescription of injectable contracep Encounter for test, result negative Other chlamydial infection of lower genitourinary tract Encounter for test, result negative Encntr screen for infections w sexl mode of transmiss High risk heterosexual behavior Other sex counseling Encounter for oth general cnsl and advice on contraception Trichomonal vulvovaginitis Acute vaginitis Encounter for test, result negative Encntr screen for infections w sexl mode of transmiss High risk heterosexual behavior Acute vaginitis Encounter for oth general cnsl and advice on contraception Encounter for test, result negative PT, Negative UTI Chlamydial infection - Active Procedures Procedure Date OFFICE VISIT, EST CVR Blood Pressure CVR Med.Svc. Height/Weight CVR Manager Control.Svc. Contraceptive CVR Manager Control.Svc. Other Results Test Name Date and Time Measure Units Reference Range Abnormal Flag St atus Comments No Information Advance Directives Directive Yes / No Effective Date File Name No Information Encounters Encounter Description Practice Location Reason(s) For Visit Diagnose s Date Provider Providers Copied on Encounter OFFICE VISIT, EST [facility], [address], [place], [id number], [place] tel:[phone] [facility] [place] Foreign Body Remov al (F) (chief complaint) Delusional disorders Kaylinfalguni Laguna Ramona. [address] [place] [address], [id number], [place]. tel:[phone] Referring Provider: Luz Elena Aleman, [address] [place] [address], [id number]. tel:[phone] [facility], [address] [place] [address], [id number], [place] tel:[phone] [facility] [place] Other sex counselin gEncounter for oth general cnsl and advice on contraceptionEncounter for initial prescription of injectable contracepEncounter for test, result negative Galo Harrison. [address] [place] [address], [id number], [place]. tel:[phone] Referring Provider: Christy Rosenthal, [address], [place], [id number]. tel:[phone] [facility], [address], [place], [id number], [place] tel:[phone] [facility] [place] Other chlamydial in fection of lower genitourinary tract Veda Lang. [address] [place], [place], [id number]. tel:[phone] [facility], [address] [place] [address], [id number], [place] tel:[phone] [facility] [place] Encounter for pregn malka test, result negativeEncntr screen for infections w sexl mode of transmissHigh risk heterosexual behaviorOther sex counselingEncounter for oth general cnsl and advice on contraceptionTrichomonal vulvovaginitisAcute vaginitis Galo Harrison. [address] [place] [address], [id number], [place]. tel:[phone] Referring Provider: Christy Rosenthal, [address], [place], [id number]. tel:[phone] [facility], [address] [place] [address], [id number], [place] tel:[phone] [facility] [place] Encounter for pregn malka test, result negativeEncntr screen for infections w sexl mode of transmissHigh risk heterosexual behaviorAcute vaginitisEncounter for oth general cnsl and advice on contraception Stephen Watson. [address] [place] [address], [id number], [place]. tel:[phone] Referring Provider: Shirley York , [address] [place] [address], [id number]. tel:[phone] [facility], [address] [place] [address], [id number], [place] tel:[phone] [facility] [place] Encounter for pregn malka test, result negative Stephen Watson. [address] [place] [address], [id number], [place]. tel:[phone] Referring Provider: Shirley York , [address] [place] [address], [id number]. tel:[phone] Provider: JANICE Nurse/[place]. [facility], [address] [place] [address], [id number], [place] tel:[phone] JAN[facility] [place] PT, NegativeUTI Stephen Watson. [address] [place] [address], [id number], [place]. tel:[phone] Family History Family Member Diagnosis Age At Onset 1st degree relative No hx of cancer of breast, colon, endome trium or ovary 1st degree relative No hx of coronary heart disease (female <65, male <55) 1st degree relative No hx of venous thromboembolism Immunizations Vaccine Date Status Comments No Information Payers Payer name Insurance type Covered democrat ID Authorization(s ) [facility] CI [id number] Social History Type Description Quantity Date Captured Comments Alcohol Use Details Unknown Caffeine Use Details Unknown Tobacco Use Status Heavy cigarette smoker (20-39 cigs/day) Smoking Status Heavy tobacco smoker Smoking Tobacco Use Details Cigarette: Years Used 18 Cigarette: 1 Packs per day, Pack Year: 18 Sex Female Vital Signs Date / Time: Height Weight BMI Pulse Rate Blood Pressure Temperatu re Respiratory Rate Body Surface Area Head Circumference BMI percentile Pulse Ox In haled Ox 1:35 PM 60.00 in 163.20 lbs 31.87 kg/meter(2) 116/76 m m[Hg] Chief Complaint And Reason For Visit Most recent encounter only, dated '11/05/2020 13:30'. Foreign Body Removal (F) (chief complaint) Reason For Referral Reason For Referral No Information Plan Of Treatment Date Type Action Status Goal Tobacco cessation counseling com pleted Goal Tobacco cessation counseling com pleted Goal Tobacco cessation counseling com pleted Goal Tobacco cessation counseling com pleted History Of Present Illness Encounter Date Complaint History Of Present I llness No Information Functional Status Date Functional Assessment No Information Medications Administered Medication Instructions Dosage Effective Dates (start - stop) Sta tus Comments No Information Instructions Date Instruction Additional Informati on No Information Assessments Type Assessment Date No Information Goals Health Concern Goal Type Priority Status Date No Information Medical Equipment Description Device [place] Device Identifier Effective Homero es (start - stop) Status No Information Mental Status Date Cognitive Assessment N/A Health Concerns Observation Date No Information Concern Status Date No Information Physical Examination Exam Findings Details Genitourinary Normal Urethral meatus - No rmal. External genitalia - Normal. Perineum - Normal. Vagina - Normal. Cervix - Normal. Uterus - Normal. Adnexa - Normal. Psychiatric * Anxious. Flight of i hamzah. Paranoia. Rectal Normal Perianal area - Norm al. Anus - Normal. Sphincter - Normal.
--- OUTSIDE RECORDS SUMMARY | 2020-12-19 10:45 | CCD ---
Author Organization Unknown Address [address] [place] [address] Phone [phone] Care Team Providers Care Vocal Music Teacher Name Role Phone Mavis Batista Unavailable Unavailable Allergies Code Code System Name Reaction Severity Status Onset 339279 RxNorm Bactrim Active 10/25/2015 Penicillin Active 10/25/2015 Sulfa (Sulfonamide Antibiotics) Active 06/13/19 Notes: SULFA ANTIBIOTICS Medications Name Status Start Date Stop Date acetaminophen 325 mg tablet TAKE 2 TABLETS BY MOUTH EVERY 4 HOURS NEEDED FOR PAIN OR FEVER Active Not available albuterol sulfate HFA 90 mcg/actuation a erosol inhaler INHALE TWO PUFFS BY MOUTH EVERY 4 HOURS NEEDED FOR SHORTNESS OF BREATH Active Not available amitriptyline 100 mg tablet TAKE ONE TABLET BY MOUTH AT BEDTIME Active Not available amitriptyline 50 mg tablet TAKE ONE TABLET BY MOUTH DAILY AT BEDTIME Active Not available amitriptyline 75 mg tablet Active Not a vailable Antibiotic (bacitracin zinc) 500 unit/gr am topical ointment APPLY TO AFFECTED AREA S TOPICALLY TWO TIMES A DAY Active Not available asenapine [address] ONE TABLET UNDER THE TONGUE TWICE A DAY Active Not available atomoxetine 18 mg capsule Active Not av ailable azelastine 137 mcg (0.1 %) nasal spray aerosol Active Not available bacitracin 500 unit/gram topical ointmen t APPLY TO AFFECTED AREA S TO FOREHEAD THREE TIMES A DAY FOR 10 DAYS Active Not available Banophen 25 mg capsule TAKE 1 CAPSULE BY MOUTH NIGHTLY NEEDED FOR SLEEP FOR UP TO 10 DAYS Active Not available benztropine 1 mg tablet TAKE ONE TABLET BY MOUTH TWICE A DAY NEEDED FOR EXTRAPYRAMIDAL SYMPTOMS Active Not available buprenorphine 8 mg-naloxone 2 mg subling ual film PLACE TWO FILMS UNDER THE TONGUE EVERY DAY MAXIMUM DAILY DOSE 2 FILMS Active Not available cephalexin 250 mg/5 mL oral suspension TAKE 10MLS BY MOUTH TWICE A DAY FOR 7 DAYS DISCARD ANY UNUSED PORTION Active Not available cephalexin 500 mg capsule TAKE ONE CAPSULE BY MOUTH TWICE A DAY Active N ot available cetirizine 10 mg tablet TAKE ONE TABLET BY MOUTH EVERY DAY Active Not available chlorhexidine gluconate 0.12 % mouthwash SWISH AND SPIT 15MLS TWO TIMES A DAY Active No t available chlorpromazine 100 mg tablet TAKE ONE TABLET BY MOUTH TWICE A DAY FOR ANTIPSYCHOTIC Active Not available ciprofloxacin 500 mg tablet Active Not available citalopram 10 mg tablet TAKE ONE TABLET BY MOUTH EVERY DAY FOR MOOD Active Not available citalopram 20 mg tablet TAKE ONE TABLET BY MOUTH EVERY DAY FOR DEPRESSION Active Not available clindamycin HCl 300 mg capsule TAKE ONE CAPSULE BY MOUTH TWICE A DAY FOR 10 DAYS Active Not available clonazepam 0.5 mg tablet TAKE ONE TABLET BY MOUTH AT BEDTIME FOR 7 DAYS MAXIMUM DAILY DOSE 1 Active Not available clonidine HCl 0.1 mg tablet Active Not available clonidine HCl 0.2 mg tablet TAKE ONE TABLET BY MOUTH THREE TIMES A DAY NEEDED FOR ANXIETY Active Not available Double Antibiotic (bacitrcn zn) 500 unit -10,000 unit/gram top ointment APPLY 1 INCH TOPICALLY TO AFFECTED AREA S THREE TIMES A DAY Active Not available doxepin 25 mg capsule TAKE 1 CAPSULE 25MG BY MOUTH EVERY DAY AT BEDTIME FOR SLEEP Active Not available doxycycline monohydrate 100 mg capsule TAKE 1 CAPSULE 100MG BY MOUTH TWO TIMES A DAY Active Not available famotidine 20 mg tablet TAKE ONE TABLET BY MOUTH EVERY DAY Active Not available Firvanq 50 mg/mL oral solution TAKE 2 1/2 MILLILITER 1/2 TEASPOONFUL BY MOUTH FOUR TIMES A DAY Active Not available fluconazole 150 mg tablet TAKE ONE TABLET BY MOUTH FOR 1 DOSE Active Not available fluticasone propionate 50 mcg/actuation nasal spray,suspension USE 2 SPRAYS IN EACH NOSTRIL DAILY NEEDED FOR ALLERGIES Active Not available gabapentin 100 mg capsule TAKE TWO CAPSULES BY MOUTH EVERY DAY Active No t available gabapentin 300 mg capsule TAKE TWO CAPSULES BY MOUTH THREE TIMES A DAY Active Not available gabapentin 400 mg capsule TAKE ONE CAPSULE BY MOUTH THREE TIMES A DAY Active Not available gabapentin 600 mg tablet TAKE ONE TABLET BY MOUTH THREE TIMES A DAY Active Not available gabapentin 800 mg tablet TAKE ONE TABLET BY MOUTH THREE TIMES A DAY FOR NEUROPATHY Active Not available hydroxyzine HCl 25 mg tablet TAKE 1 TABLET BY MOUTH NEEDED FOR ANXIETY DAILY Active Not available ketorolac 10 mg tablet TAKE ONE TABLET BY MOUTH EVERY 6 HOURS NEEDED FOR PAIN Active Not available Latuda 20 mg tablet TAKE 1 TABLET BY MOUTH AT 8 00 FOR MOOD Active Not available Latuda 40 mg tablet TAKE ONE TABLET BY MOUTH EVERY DAY WITH FOOD Active Not available Latuda 80 mg tablet TAKE ONE TABLET BY MOUTH EVERY DAY WITH FOOD Active Not available levetiracetam 1,000 mg tablet TAKE ONE TABLET BY MOUTH TWICE A DAY FOR SEIZURES Active Not available loratadine 10 mg tablet TAKE ONE TABLET BY MOUTH EVERY DAY Active Not available methadone Active Not available metronidazole 500 mg tablet TAKE ONE TABLET BY MOUTH EVERY 12 HOURS FOR BLADDER INFECTION Active Not available mupirocin 2 % topical ointment APPLY THREE TIMES A DAY FOR 7 DAYS Active Not available nicotine (polacrilex) 2 mg gum Active N ot available nicotine 21 mg/24 hr daily transdermal p atch APPLY ONE PATCH TO THE SKIN ONCE DAILY FOR NICOTINE WITHDRAWAL Active Not available nystatin 100,000 unit/mL oral suspension TAKE 5ML FOUR TIMES A DAY Active Not available omeprazole 20 mg capsule,delayed release TAKE ONE CAPSULE BY MOUTH 30 MINUTES BEFORE MORNING MEAL ONCE DAILY Active Not available oxcarbazepine 150 mg tablet TAKE ONE TABLET BY MOUTH TWICE A DAY Active No t available oxcarbazepine 300 mg tablet TAKE ONE TABLET BY MOUTH TWICE A DAY Active No t available permethrin 5 % topical cream APPLY DIRECTED FOR A SINGLE DOSE Active Not available prednisone 20 mg tablet TAKE THREE TABLETS BY MOUTH EVERY DAY Active N ot available risperidone 1 mg tablet Active Not avai lable risperidone 2 mg tablet TAKE ONE TABLET BY MOUTH TWICE A DAY Active No t available risperidone 3 mg tablet TAKE ONE TABLET BY MOUTH TWICE A DAY Active No t available Senna-S 8.6 mg-50 mg tablet TAKE TWO TABLETS BY MOUTH TWICE A DAY NEEDED FOR CONSTIPATION Active Not available Suboxone 12 mg-[address] ONE FILM UNDER THE TONGUE EVERY DAY MAXIMUM DAILY DOSE 1 Completed 11/12/2020 sucralfate 1 gram tablet TAKE ONE TABLET BY MOUTH TWICE A DAY ON AN EMPTY STOMACH Active Not available sumatriptan 25 mg tablet TAKE ONE TABLET BY MOUTH TWICE A DAY NEEDED FOR MIGRAINE Completed 11/12/2020 sumatriptan 50 mg tablet TAKE ONE TABLET BY MOUTH EVERY DAY NEEDED FOR MIGRAINE Active Not available trazodone 50 mg tablet TAKE ONE TABLET BY MOUTH AT BEDTIME NEEDED FOR INSOMNIA Active Not available triamcinolone acetonide 0.1 % topical cr eam APPLY 1 APPLICATION TOPICALLY TWO TIMES A DAY FOR RASH Active Not available Vyvanse 50 mg capsule TAKE ONE CAPSULE BY MOUTH EVERY MORNING MAXIMUM DAILY DOSE 1 Active Not available Problems Name Status Onset Date Source Liver Function Tests Abnormal Active 10/25/2015 Hi story Clinical Finding Active 10/25/2015 History Hepatitis C Carrier Active 10/29/2015 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 History Body Mass Index 25-29 - Overweight Active 05/24/2016 History Tobacco Use and Exposure - Finding Active 05/24/2016 History Disorder of Upper Extremity Active 03/20/2018 Hist ory Clinical Finding Active 03/20/2018 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 History Idiopathic Peripheral Neuropathy Active 03/21/2018 History Psychoactive Substance Abuse Active 05/15/2018 His tory Clinical Finding Active 05/15/2018 History Residual Hemorrhoidal Skin Tags Active 07/12/2018 History Acute Bronchitis Active 12/30/2018 History Clinical Finding Active 12/30/2018 History Phlebitis Active 05/20/2019 History Hematemesis Active 09/22/2019 History Hyperthyroidism Active 11/12/2020 Schizophrenia Active 11/12/2020 Seizure Disorder Active 11/12/2020 Depressive Disorder Active History Fitting Procedure Active History SNOMED CT Concept Active History Procedures Notes: hernia umbical 2013 Results Lab Results Date Name Specimen Result Interpretation Description Value Range Status Address 10/13/2019 Cardiovascular Assessment Panel, Serum High CPK Creatine Phosphokinase 196 U/L 26-192 U/L [facility]: [address] [place] [address] Normal CK-mb Value Mass 1.6 NG/mL <3.6 NG/m L [facility]: [address] [place] [address] Normal mb/CK Relative Index 0.82 < or =4 [facility]: [address] [place] [address] 10/13/2019 Hepatic Function Panel, Serum Normal AST/SG OT 31 U/L 7-37 U/L [facility]: 0 [facility] Normal ALT/SGPT 31 U/L 12-78 U/L [facility]: 0 [facility] Normal Alkaline Phosphatase 84 U/L 45-117 U /L [facility]: 0 [facility] Normal Bilirubin,total 0.5 mg/dL 0.2-1.0 mg /dL [facility]: [address] [facility] Normal Bilirubin,direct 0.2 mg/dL 0.0-0.2 m g/dL [facility]: [address] [facility] Normal Total Protein 8.2 gm/dL 6.4-8.2 gm/d L [facility]: [address] [facility] Normal Albumin 4.5 gm/dL 3.2-5.2 gm/dL Dior l [facility] [place]: [address] [facility] Normal Albumin/globulin Ratio 1.2 1.2-2. 2 [facility]: 0 [facility] 10/13/2019 BMP, Serum or Plasma Normal Glucose, Fastin g 90 mg/dL 70-100 mg/dL [facility]: [address] [facility] Normal Blood Urea Nitrogen 9 mg/dL 7-18 mg/ dL [facility]: 0 [facility] Normal Creatinine for GFR 0.88 mg/dL 0.55-1 .30 mg/dL [facility]: 0 [facility] Normal Glomerular Filtration Rate > 60.0 >[address] [facility]: [address] [facility] Normal Sodium Level 137 mEq/L 136-145 mEq/L [facility]: 0 [facility] Normal Potassium Serum 4.0 mEq/L 3.5-5.1 mE q/L [facility]: [address] [facility] Normal Chloride Level 106 mEq/L 98-107 mEq/ L [facility]: 0 [facility] Normal Carbon Dioxide Level 28 mEq/L 21-32 mEq/L [facility]: 0 [facility] Low Anion Gap 3 mEq/L 8-16 mEq/L [facility]: 0 [facility] Normal Calcium Level 9.7 mg/dL 8.5-10.1 mg/ dL [facility]: 0 [facility] 10/13/2019 Troponin I, Blood Normal Troponin I < 0.02 NG/mL < 0.10 NG/mL [facility]: [address] [facility] 10/13/2019 Lipase, Serum or Plasma Low Lipase 49 U/L 7 3-393 U/L [facility]: [address] [facility] 10/13/2019 Ethanol, Blood Normal Ethyl Alcohol (Ethano l) < 0.003 % 0.000- 0.010 % [facility]: [address] 0 [facility] 10/13/2019 Salicylate, Quantitative, Serum Low Sali cylate Level 3.4 mg/dL 5.0-30.0 mg/dL [facility]: [address] 0 [facility] 10/13/2019 Acetaminophen, Serum Low Acetaminophen L evel < 2.0 ug/mL 10.0- 30.0 ug/mL [facility]: [address] 0 [facility] 10/13/2019 TSH + Free T4, Serum Low Thyroid Stimulating Hormone 0.338 uIU/mL 0.358-3.740 uIU/mL [facility]ter: [address] [facility] Normal Free T4 1.21 NG/dL 0.76-1.46 NG/dL F inal [facility] [place]: [address] [facility] 10/13/2019 beta-HCG, Qualitative, Serum or Plasma Normal HCG, Serum Qualitative negative negative [facility]: [address] [facility] Past Encounters 11/12/2020 Seizure Disorder; Psychoactive Substance Abuse; Schizophrenia; Hyperthyroidism Francesco Ritchie MD: [address] [place] [address], Ph. Social History Tobacco Smoking Status Heavy Tobacco Smoker (1 pack per a da y) Vaccine List None recorded. Plan of Care Reminders Provider Appointments None recorded. Lab None recorded. Referral None recorded. Procedures None recorded. Surgeries None recorded. Imaging None recorded. Vitals 11/12/2020 11:00AM ESTABLISHED [id number] Height Weight BMI Blood Pressure 61 in 166 lbs 8 oz 31.5 kg/m2 83/56 mm[Hg] 09/22/2019 Height Weight BMI Blood Pressure 61 in 159 lbs 30.15 kg/m2 112/74 mm[Hg] 05/20/2019 Height Weight BMI Blood Pressure 61 in 160 lbs 30.34 kg/m2 106/72 mm[Hg] 12/30/2018 Height Weight BMI Blood Pressure 61 in 173 lbs 6.4 oz 32.88 kg/m2 122/79 mm[Hg ] 07/05/2018 Height Weight BMI Blood Pressure 61 in 174 lbs 33.00 kg/m2 125/78 mm[Hg] 06/12/2018 Height Weight BMI Blood Pressure 61 in 159 lbs 30.15 kg/m2 136/82 mm[Hg] 05/15/2018 Height Weight BMI Blood Pressure 61 in 160 lbs 6.08 oz 30.41 kg/m2 137/68 mm[H g] 03/20/2018 Height Weight BMI Blood Pressure 61 in 158 lbs 6.08 oz 30.03 kg/m2 122/84 mm[H g]
--- OUTSIDE RECORDS SUMMARY | 2020-12-19 10:45 | CCD ---
Author Author [facility] Organization [facility] Address Unknown Phone Unavailable Care Team Providers Care Franchise Business Consultant Name Role Phone Aliyah Vazquez Unavailable PROBLEMS Type Condition ICD9-CM Code [id number] Code Onset Dates Condition S tatus W/U Status Risk SNOMED Code Notes Problem Chronic post-traumatic stress disorder (PTSD) F43. 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 Activ e confirmed 517269698 Problem Opioid abuse F11.10 Active confirmed 1926878 Problem ADHD (attention deficit hyperactivity disorder), inattentive type F90.0 Active confirmed 15803770 by hx Problem Cannabis abuse F12.10 Active confirmed 61697 009 Problem Methamphetamine abuse F15.10 Active confirmed 649824863 Problem Schizoaffective disorder F25.9 Active confirmed 70086927 Problem Opioid use disorder, severe, in sustained remission, on maintenance therapy F11.21 Active confirmed 928309255 Problem BMI 30.0-30.9,adult Z68.30 Active confirmed 196000256 Problem Obesity (BMI 30.0-34.9) E66.9 Active confirmed 909669771752695 Problem Tobacco dependence F17.200 Active confirmed 44421355 Problem Polysubstance abuse F19.10 Active confirmed 369841149 Problem Gastroesophageal reflux disease, esophagitis pre sence not specified K21.9 Active confirmed 068033141 Problem Schizophrenia, unspecified type F20.9 Active confi rmed 15369140 drug induced Problem Binge eating disorder F50.81 Active confirmed 825261812 Problem Adjustment disorder with mixed anxiety and depressed mood F43.23 Active confirmed 48314467 Problem Carpal tunnel syndrome, bilateral G56.03 Active confirmed [id number] Problem Oropharyngeal dysphagia R13.12 Active confirmed 23709440 Problem History of drug abuse F19.11 Active confirmed 592181793 Problem Tongue sore K14.6 Active confirmed 28057940 ALLERGIES Allergen (clinical drug ingredient) Drug/Non Drug Allergy do cumented on EMR Reaction Allergy Type Onset Date Status haloperidol Haldol([facility] Code:[address]-94) Unknown Drug Allergy Active olanzapine Zyprexa([facility] Code:[address]-36) Unknown Drug Allergy Active amoxicillin Amoxicillin([facility] Code:[address]-04) Unknown Drug Aller gy Active penicillin G Penicillin G Sodium([facility] Code:[address]-64) Unknown D rug Allergy Active sulfamethoxazole / trimethoprim Bactrim([facility] Code:[address]-87) Unknown Drug Allergy Active Sulfacet-R Unknown Drug Allergy Active ENCOUNTERS from 1987 to 2020-10-12 Encounter Location Date Provider Diagnosis [address] [address] Sep, Aliyah Vazquez IMMUNIZATIONS No Information SOCIAL HISTORY Tobacco Use: [...] Notes Start Da te End Date Status SUMAtriptan Succinate 1 daily orally daily and PRN for Migraine. for 14 days Active Citalopram Hydrobromide 20 MG 1 tablet Orally Once a day Active Keppra 1000 MG 1 tablet Orally Twice a day for 30 days Active CeleXA 20 MG 1 tablet Orally Once a day for 30 days Not-Taking Saphris Active Diphenhydramine 1 tab Oral twice a day fro EPS Not-Taking Sucralfate 1 GM 1 tablet on an empty stomach Orally Twice a day for 30 days Active Omeprazole 20 MG 1 capsule 30 minutes before morning meal Orally Once a day for 30 day(s) Active Gabapentin 600 MG 1 capsule Orally three times a day for 30 days Active Doxepin HCl 25 MG 1 capsule at bedtime Orally (pt is decreasing amitript to 50mg) Once a day Feb, Active Loratadine 10 MG 1 tablet Orally Once a day for 30 day(s) Active PriLOSEC OTC 20 MG 1 tablet 30 minutes before m orning meal Orally Once a day for 90 day(s) Active cloNIDine HCl 0.2 MG 1 tablet Orally tid prn amxiety 28 Oc 2019 Active Buprenorphine HCl 8 MG 2 strips under the tongue an d allow to dissolve Sublingual Once a day Active Chlorhexidine Gluconate - as directed Active COGENTIN Active RisperDAL 3 MG 1 tablet Orally twice a day for 15 days June, Not-Taking Triamcinolone Acetonide 0.1 % 1 application Externally Two times a We ek Active PROCEDURES No Information RESULTS No Results REASON FOR VISIT Appts MEDICAL (GENERAL) HISTORY Type Description Date Medical History bilateral carpal tunnel Medical History Seizure Medical History GERD Surgical History hernia repair 2012 Hospitalization History drug overdose 2019 Goals Section No Information Health Concerns No Information MEDICAL EQUIPMENT No Information MENTAL STATUS No Information FUNCTIONAL STATUS No Information ASSESSMENTS No Information PLAN OF TREATMENT Next Appt Details Provider Name:Aliyah Vazquez, 10-20 11:00:00 AM, [address] [place] [address], [phone], Provider Name:Karli Bunch, 2020-10-25 0 3:00:00 PM, [address] [place] [address], [phone], Insurance Providers Payer Name Payer Address Payer Phone Insured Name Patient Relati onship to Insured Coverage Start Date Coverage End Date [employer] [address] [address] Come,Melissa self
--- OUTSIDE RECORDS SUMMARY | 2020-12-19 10:47 | CCD ---
Author Author [facility] Organization [facility] Address Unknown Phone Unavailable Care Team Providers Care Bat Person Name Role Phone Ysesi Ritchie MD Unavailable Unavailable Yessi Ritchie MD Unavailable Unavailable Yessi Ritchie MD Unavailable Unavailable Yessi Ritchie MD Unavailable Unavailable Yessi Ritchie MD Unavailable Unavailable Yessi Ritchie MD Unavailable Unavailable Yessi Ritchie MD Unavailable Unavailable Yessi Ritchie MD Unavailable Unavailable Yessi Ritchie MD Unavailable Unavailable Yessi Ritchie MD Unavailable Unavailable Yessi Ritchie MD Unavailable Unavailable Yessi Ritchie MD Unavailable Unavailable Yessi Ritchie MD Unavailable Unavailable Yessi Ritchie MD Unavailable Unavailable Yessi Ritchie MD Unavailable Unavailable Yessi Ritchie MD Unavailable Unavailable Yessi Ritchie MD Unavailable Unavailable Yessi Ritchie MD Unavailable Unavailable Yessi Ritchie MD Unavailable Unavailable Yessi Ritchie MD Unavailable Unavailable Yessi Ritchie MD Unavailable Unavailable Yessi Ritchie MD Unavailable Unavailable Yessi Ritchie MD Unavailable Unavailable Yessi Ritchie MD Unavailable Unavailable Yessi Ritchie MD Unavailable Unavailable Yessi Ritchie MD Unavailable Unavailable Yessi Ritchie MD Unavailable Unavailable Yessi Ritchie MD Unavailable Unavailable Yessi Ritchie MD Unavailable Unavailable Yessi Ritchie MD Unavailable Unavailable Yessi Ritchie MD Unavailable Unavailable Yessi Ritchie MD Unavailable Unavailable Yessi Ritchie MD Unavailable Unavailable Yessi Ritchie MD Unavailable Unavailable Yessi Ritchie MD Unavailable Unavailable Yessi Ritchie MD Unavailable Unavailable Yessi Ritchie MD Unavailable Unavailable Yessi Ritchie MD Unavailable Unavailable Yessi Ritchie MD Unavailable Unavailable Yessi Ritchie MD Unavailable Unavailable Yessi Ritchie MD Unavailable Unavailable Yessi Ritchie MD Unavailable Unavailable Yessi Ritchie MD Unavailable Unavailable Yessi Ritchie MD Unavailable Unavailable Yessi Ritchie MD Unavailable Unavailable Yessi Ritchie MD Unavailable Unavailable Yessi Ritchie MD Unavailable Unavailable Yessi Ritchie MD Unavailable Unavailable Yessi Ritchie MD Unavailable Unavailable Yessi Ritchie MD Unavailable Unavailable Yessi Ritchie MD Unavailable Unavailable Yessi Ritchie MD Unavailable Unavailable Yessi Ritchie MD Unavailable Unavailable Yessi Ritchie MD Unavailable Unavailable Yessi Ritchie MD Unavailable Unavailable Yessi Ritchie MD Unavailable Unavailable Yessi Ritchie MD Unavailable Unavailable Yessi Ritchie MD Unavailable Unavailable Yessi Ritchie MD Unavailable Unavailable Yessi Ritchie MD Unavailable Unavailable Yessi Ritchie MD Unavailable Unavailable Yessi Ritchie MD Unavailable Unavailable Yessi Ritchie MD Unavailable Unavailable Yessi Ritchie MD Unavailable Unavailable Yessi Ritchie MD Unavailable Unavailable Yessi Ritchie MD Unavailable Unavailable Yessi Ritchie MD Unavailable Unavailable Yessi Ritchie MD Unavailable Unavailable Yessi Ritchie MD Unavailable Unavailable Yessi Ritchie MD Unavailable Unavailable Yessi Ritchie MD Unavailable Unavailable Yessi Ritchie MD Unavailable Unavailable Yessi Ritchie MD Unavailable Unavailable Yessi Ritchie MD Unavailable Unavailable Yessi Ritchie MD Unavailable Unavailable Yessi Ritchie MD Unavailable Unavailable Yessi Ritchie MD Unavailable Unavailable Yessi Ritchie MD Unavailable Unavailable Yessi Ritchie MD Unavailable Unavailable Yessi Ritchie MD Unavailable Unavailable Yessi Ritchie MD Unavailable Unavailable Yessi Ritchie MD Unavailable Unavailable Yessi Ritchie MD Unavailable Unavailable Yessi Ritchie MD Unavailable Unavailable Yessi Ritchie MD Unavailable Unavailable Yessi Ritchie MD Unavailable Unavailable Yessi Ritchie MD Unavailable Unavailable Yessi Ritchie MD Unavailable Unavailable Yessi Ritchie MD Unavailable Unavailable Yessi Ritchie MD Unavailable Unavailable Yessi Ritchie MD Unavailable Unavailable Yessi Ritchie MD Unavailable Unavailable Yessi Ritchie MD Unavailable Unavailable Jeremie SOTO MD Unavailable Unavailable Jeremie SOTO MD Unavailable Unavailable Jeremie SOTO MD Unavailable Unavailable BAY RIOS MD Unavailable Unavailable BAY RIOS MD Unavailable Unavailable Matt Ruby MD Unavailable Unavailable Matt Ruby MD Unavailable Unavailable Matt Ruby MD Unavailable Unavailable Matt Ruby MD Unavailable Unavailable Matt Ruby MD Unavailable Unavailable Matt Ruby MD Unavailable Unavailable ONDINA RAMIREZ MD Unavailable Unavailable ONDINA RAMIREZ MD Unavailable Unavailable ONDINA RAMIREZ MD Unavailable Unavailable ONDINA RAMIREZ MD Unavailable Unavailable ONDINA RAMIREZ MD Unavailable Unavailable ONDINA RAMIREZ MD Unavailable Unavailable ONDINA RAMIREZ MD Unavailable Unavailable ONDINA RAMIREZ MD Unavailable Unavailable ONDINA RAMIREZ MD Unavailable Unavailable ONDINA RAMIREZ MD Unavailable Unavailable ONDINA RAMIREZ MD Unavailable Unavailable Ford, M Shira PA-C Unavailable Unavailable Ford, M Shira PA-C Unavailable Unavailable Ford, M Shira PA-C Unavailable Unavailable Ford, M Shira PA-C Unavailable Unavailable Ford, M Shira PA-C Unavailable Unavailable Ford, M Shira PA-C Unavailable Unavailable Ford, M Shira PA-C Unavailable Unavailable Ford, M Shira PA-C Unavailable Unavailable Ford, M Shira PA-C Unavailable Unavailable Ford, M Shria PA-C Unavailable Unavailable Ford, M Shira PA-C [...] Unavailable Ford, M Shira PA-C Unavailable Unavailable MARIERIKCHAO Unavailable Unavailable MARI, CHAO MD Unavailable Unavailable MARIERIKCHAO Unavailable Unavailable MARIERIKCHAO Unavailable Unavailable MARI, CHAO MD Unavailable Unavailable Colten PARADA MD Unavailable Unavailable Colten PARADA MD Unavailable Unavailable Colten PARADA MD Unavailable Unavailable Colten PARADA MD Unavailable Unavailable Colten PARADA MD Unavailable Unavailable Colten PARADA MD Unavailable Unavailable Colten PARADA MD Unavailable Unavailable Colten PARADA MD Unavailable Unavailable Colten PARADA MD Unavailable Unavailable Colten PARADA MD Unavailable Unavailable Colten PARADA MD Unavailable Unavailable Colten PARADA MD Unavailable Unavailable Colten PARADA MD Unavailable Unavailable Colten PARADA MD Unavailable Unavailable Coletn PARADA MD Unavailable Unavailable Colten PARADA MD Unavailable Unavailable Colten PARADA MD Unavailable Unavailable Colten PARADA MD Unavailable Unavailable Colten PARADA MD Unavailable Unavailable Chato OTERO MD Unavailable Unavailable Chato OTERO MD Unavailable Unavailable DESJARLAIS, KAROLYN SONOGRAPHY TECHNOLOGIST Unavailable Unavailable DESJARLAIS, KAROLYN SONOGRAPHY TECHNOLOGIST Unavailable Unavailable DESJARLAIS, KAROLYN SONOGRAPHY TECHNOLOGIST Unavailable Unavailable DESJARLAIS, KAROLYN SONOGRAPHY TECHNOLOGIST Unavailable Unavailable DESJARLAIS, KAROLYN SONOGRAPHY TECHNOLOGIST Unavailable Unavailable DESJARLAIS, KAROLYN SONOGRAPHY TECHNOLOGIST Unavailable Unavailable DESJARLAIS, KAROLYN SONOGRAPHY TECHNOLOGIST Unavailable Unavailable DESJARLAIS, KAROLYN SONOGRAPHY TECHNOLOGIST Unavailable Unavailable DESJARLAIS, KAROLYN SONOGRAPHY TECHNOLOGIST Unavailable Unavailable Lester, A Mavis CONSTRUCTION CONSULTANT Unavailable Unavailable Lester, A Mavis CONSTRUCTION CONSULTANT Unavailable Unavailable Lester, A Mavis CONSTRUCTION CONSULTANT Unavailable Unavailable Lester, A Mavis CONSTRUCTION CONSULTANT Unavailable Unavailable Lester, A Mavis CONSTRUCTION CONSULTANT Unavailable Unavailable Lester, A Mavis CONSTRUCTION CONSULTANT Unavailable Unavailable Lester, A Mavis CONSTRUCTION CONSULTANT Unavailable Unavailable Lester, A Mavis CONSTRUCTION CONSULTANT Unavailable Unavailable Lester, A Mavis CONSTRUCTION CONSULTANT Unavailable Unavailable Lester, A Mavis CONSTRUCTION CONSULTANT Unavailable Unavailable Lester, A Mavis CONSTRUCTION CONSULTANT Unavailable Unavailable Lester, A Mavis CONSTRUCTION CONSULTANT Unavailable Unavailable Lester, A Mavis CONSTRUCTION CONSULTANT Unavailable Unavailable Lester, A Mavis CONSTRUCTION CONSULTANT Unavailable Unavailable Lester, A Mavis CONSTRUCTION CONSULTANT Unavailable Unavailable Lester, A Mavis CONSTRUCTION CONSULTANT Unavailable Unavailable Lester, A Mavis CONSTRUCTION CONSULTANT Unavailable Unavailable Lester, A Mavis CONSTRUCTION CONSULTANT Unavailable Unavailable Lester, A Mavis CONSTRUCTION CONSULTANT Unavailable Unavailable Lester, A Mavis CONSTRUCTION CONSULTANT Unavailable Unavailable Lester, A Mavis CONSTRUCTION CONSULTANT Unavailable Unavailable Lester, A Mavis CONSTRUCTION CONSULTANT Unavailable Unavailable Lester, A Mavis CONSTRUCTION CONSULTANT Unavailable Unavailable Lester, A Mavis CONSTRUCTION CONSULTANT Unavailable Unavailable Lester, A Mavis CONSTRUCTION CONSULTANT Unavailable Unavailable Lester, A Mavis CONSTRUCTION CONSULTANT Unavailable Unavailable Lester, A Mavis CONSTRUCTION CONSULTANT Unavailable Unavailable Lester, A Mavis CONSTRUCTION CONSULTANT Unavailable Unavailable Lester, A Mavis CONSTRUCTION CONSULTANT Unavailable Unavailable Lester, A Mavis CONSTRUCTION CONSULTANT Unavailable Unavailable Lester, A Mavis CONSTRUCTION CONSULTANT Unavailable Unavailable Kori STEVEN MD Unavailable Unavailable Kori STEVEN MD Unavailable Unavailable Kori STEVEN MD Unavailable Unavailable Kori STEVEN MD Unavailable Unavailable Kori STEVEN MD Unavailable Unavailable Kori STEVEN MD Unavailable Unavailable Kori STEVEN MD Unavailable Unavailable Kori STEVEN MD Unavailable Unavailable Kori STEVEN MD Unavailable Unavailable Kori STEVEN MD Unavailable Unavailable Kori STEVEN MD Unavailable Unavailable Kori STEVEN MD Unavailable Unavailable Kori STEVEN MD Unavailable Unavailable Kori STEVEN MD Unavailable Unavailable Kori STEVEN MD Unavailable Unavailable Kori STEVEN MD Unavailable Unavailable Kori STEVEN MD Unavailable Unavailable Kori STEVEN MD Unavailable Unavailable Kori STEVEN MD Unavailable Unavailable Kori STEVEN MD Unavailable Unavailable MIRLANDE FUNEZ MD Unavailable Unavailable DEE DEE JEW MD Unavailable Unavailable DEE DEE JEW MD Unavailable Unavailable FUNEZ, JEW MD Unavailable Unavailable FUNEZ, JEW MD Unavailable Unavailable FUNEZ, JEW MD Unavailable Unavailable FUNEZ, JEW MD Unavailable Unavailable FUNEZ, JEW MD Unavailable Unavailable Ching, Reginah W Kassidy CONSTRUCTION CONSULTANT-C Unavailable Unavailabl e Ching, Reginah W Kassidy CONSTRUCTION CONSULTANT-C Unavailable Unavailabl e Ching, Reginah W Kassidy CONSTRUCTION CONSULTANT-C Unavailable Unavailabl e Ching, Reginah W Kassidy CONSTRUCTION CONSULTANT-C Unavailable Unavailabl e Ching, Reginah W Kassidy CONSTRUCTION CONSULTANT-C Unavailable Unavailabl e Ching, Reginah W Kassidy CONSTRUCTION CONSULTANT-C Unavailable Unavailabl e Ching, Reginah W Kassidy CONSTRUCTION CONSULTANT-C Unavailable Unavailabl e Ching, Reginah W Akssidy CONSTRUCTION CONSULTANT-C Unavailable Unavailabl e Ching, Reginah W Kassidy CONSTRUCTION CONSULTANT-C Unavailable Unavailabl e Ching, Reginah W Kassidy CONSTRUCTION CONSULTANT-C Unavailable Unavailabl e Ching, Reginah W Kassidy CONSTRUCTION CONSULTANT-C Unavailable Unavailabl e Ching, Reginah W Kassidy CONSTRUCTION CONSULTANT-C Unavailable Unavailabl e Ching, Reginah W Kassidy CONSTRUCTION CONSULTANT-C Unavailable Unavailabl e Ching, Reginah W Kassidy CONSTRUCTION CONSULTANT-C Unavailable Unavailabl e Ching, Reginah W Kassidy CONSTRUCTION CONSULTANT-C Unavailable Unavailabl e Ching, Reginah W Kassidy CONSTRUCTION CONSULTANT-C Unavailable Unavailabl e Ching, Reginah W Kassidy CONSTRUCTION CONSULTANT-C Unavailable Unavailabl e Ching, Reginah W Kassidy CONSTRUCTION CONSULTANT-C Unavailable Unavailabl e Ching, Regstacie W Kassidy CONSTRUCTION CONSULTANT-C Unavailable Unavailabl e Ching, Elijah W Kassidy CONSTRUCTION CONSULTANT-C Unavailable Unavailabl e Ching, Reginalisa W Kassidy CONSTRUCTION CONSULTANT-C Unavailable Unavailabl e Ching, Reginalisa W Kassidy CONSTRUCTION CONSULTANT-C Unavailable Unavailabl e Ching, Reginalisa W Kassidy CONSTRUCTION CONSULTANT-C Unavailable Unavailabl e Ching, Reginah W Kassidy CONSTRUCTION CONSULTANT-C Unavailable Unavailabl e Ching, Reginah W Kassidy CONSTRUCTION CONSULTANT-C Unavailable Unavailabl e Ching, Reginah W Kassidy CONSTRUCTION CONSULTANT-C Unavailable Unavailabl e Ching, Reginalisa W Kassidy CONSTRUCTION CONSULTANT-C Unavailable Unavailabl e Ching, Elijah W Kassidy CONSTRUCTION CONSULTANT-C Unavailable Unavailabl e Ching, Regstacie W Kassidy CONSTRUCTION CONSULTANT-C Unavailable Unavailabl e Ching, Elijah W Kassidy CONSTRUCTION CONSULTANT-C Unavailable Unavailabl e Ching, Abhishekinalisa W Kassidy CONSTRUCTION CONSULTANT-C Unavailable Unavailabl e Ching, Reginah W Kassidy CONSTRUCTION CONSULTANT-C Unavailable Unavailabl e LESTER, MATIAS PA Unavailable Unavailable LESTER, MATIAS [...] Unavailable Unavailable LESTER, MATIAS PA Unavailable Unavailable DIOGENES BUENO MD Unavailable Unavailable TURRIN, EVONNE Unavailable Unavailable TURRIN, EVONNE Unavailable Unavailable TURRIN, EVONNE Unavailable Unavailable TURRIN, EVONNE Unavailable Unavailable Dwello PA PA, Nora Unavailable Unavailable Dwello PA PA, Nora Unavailable Unavailable Dwello PA PA, Nora Unavailable Unavailable Dwello PA PA, Nora Unavailable Unavailable Dwello PA PA, Nora Unavailable Unavailable Dwello PA PA, Nora Unavailable Unavailable Dwello PA PA, Nora Unavailable Unavailable Jane Edward Unavailable Jane Edward Unavailable MARK, L GINGER PA Unavailable Unavailable MARK, L GINGER PA Unavailable Unavailable MARK, L GINGER PA Unavailable Unavailable MARK, L GINGER PA Unavailable Unavailable MARK, L GINGER PA Unavailable Unavailable MARK, L GINGER PA Unavailable Unavailable MARK, L IGNGER PA Unavailable Unavailable MARK, L GINGER PA [...] Unavailable MARK, L GINGER PA Unavailable Unavailable Jeremie BUENO MD Unavailable Unavailable Jeremie BUENO MD Unavailable Unavailable MAHESH RECINOS Unavailable Unavailable JORJE HERNANDEZ, MAHESH Unavailable Unavailable MAHESH RECINOS MD Unavailable Unavailable Mavis BatistaP CONSTRUCTION CONSULTANT Unavailable Unavailable KATRIN BLUM MD Unavailable Unavailable KATRIN BLUM MD Unavailable Unavailable KATRIN BLUM MD Unavailable Unavailable KATRIN BLUM MD Unavailable Unavailable KATRIN BLUM MD Unavailable Unavailable KATRIN BLUM MD Unavailable Unavailable KATRIN BLUM MD Unavailable Unavailable KATRIN BLUM MD Unavailable Unavailable KATRIN BLUM MD Unavailable Unavailable KATRIN BLUM MD Unavailable Unavailable KATRIN BLUM MD Unavailable Unavailable KATRIN BLUM MD Unavailable Unavailable KATRIN BLUM MD Unavailable Unavailable Hiral Liriano MD Unavailable Unavailable Hiral Liriano MD Unavailable Unavailable Hiral Liriano MD Unavailable Unavailable Hiral Liriano MD Unavailable Unavailable Hiral Liriano MD Unavailable Unavailable Hiral Liriano MD Unavailable Unavailable Hiral Liriano MD Unavailable Unavailable Hiral Liriano MD Unavailable Unavailable Hiral Liriano MD Unavailable Unavailable Hiral Liriano MD Unavailable Unavailable Hiral Liriano MD Unavailable Unavailable Hiral Liriano MD Unavailable Unavailable Hiral Liriano MD Unavailable Unavailable Hiral Liriano MD Unavailable Unavailable Hiral Liriano MD Unavailable Unavailable Hiral Liriano MD Unavailable Unavailable Hiral Liriano MD Unavailable Unavailable Hiral Liriano MD Unavailable Unavailable Hiral Liriano MD Unavailable Unavailable KATRIN BLUM Unavailable Unavailable TYE, S GENO HERNANDEZ Unavailable Unavailable TYE, S GENO HERNANDEZ Unavailable Unavailable TYE, S GENO HERNANDEZ Unavailable Unavailable TYE, S GENO HERNANDEZ Unavailable Unavailable TYE, S GENO HERNANDEZ Unavailable Unavailable TYE, S GENO HERNADNEZ Unavailable Unavailable TYE, S GENO HERNANDEZ Unavailable Unavailable TYE, S GENO HERNANDEZ Unavailable Unavailable TYE, S GENO HERNANDEZ Unavailable Unavailable TYE, S GENO HERNANDEZ Unavailable Unavailable TYE, S GENO HERNANDEZ Unavailable Unavailable TYE, S GENO HERNANDEZ Unavailable Unavailable TYE, S GENO HERNANDEZ Unavailable Unavailable TYE, S GENO HERNANDEZ Unavailable Unavailable TYE, S GENO HERNANDEZ Unavailable Unavailable TYE, S GENO HERNANDEZ Unavailable Unavailable TYE, S GENO HERNANDEZ Unavailable Unavailable TYE, S GENO HERNANDEZ Unavailable Unavailable TYE, S GENO HERNANDEZ Unavailable Unavailable TYE, S GENO HERNANDEZ Unavailable Unavailable TYE, S GENO HERNANDEZ Unavailable Unavailable JESICALino Cullen MD Unavailable Unavailable JESICALino Cullen MD Unavailable Unavailable JESICALino Cullen MD Unavailable Unavailable JESICALino Cullen MD Unavailable Unavailable JESICALino Cullen MD Unavailable Unavailable JESICALino Cullen MD Unavailable Unavailable JESICALino Cullen MD Unavailable Unavailable JESICALino Cullen MD Unavailable Unavailable JESICALino Cullen MD Unavailable Unavailable JESICALino Cullen MD Unavailable Unavailable JESICALino Cullen MD Unavailable Unavailable Lino MOONEY MD Unavailable Unavailable Lino MOONEY MD Unavailable Unavailable Lino MOONEY MD Unavailable Unavailable Lino MOONEY MD Unavailable Unavailable Lino MOONEY MD Unavailable Unavailable Lino MOONEY MD Unavailable Unavailable Lino MOONEY MD Unavailable Unavailable Lino MOONEY MD Unavailable Unavailable Lino MOONEY MD Unavailable Unavailable Lino MOONEY MD Unavailable Unavailable JESICALino Cullen MD Unavailable Unavailable BROWN, L JANE Unavailable Unavailable ANAHI ESCALERA SONOGRAPHY TECHNOLOGIST Unavailable Unavailable ESCALERA, ANAHI SONOGRAPHY TECHNOLOGIST Unavailable Unavailable ESCALERA, ANAHI SONOGRAPHY TECHNOLOGIST Unavailable Unavailable BRITTANYBEHZAD MD Unavailable Unavailable HUMBERTO, QUE NATHAN PA-C Unavailable Unavailable HUMBERTO, QUE NATHAN PA-C Unavailable Unavailable HUMBERTO, QUE NATHAN PA-C Unavailable Unavailable HUMBERTO, QUE NATHAN PA-C Unavailable Unavailable HUMBERTO, QUE NATHAN PA-C Unavailable Unavailable HUMBERTO, QUE NATHAN PA-C Unavailable Unavailable HUMBERTO, QUE NATHAN PA-C Unavailable Unavailable HUMBERTO, QUE NATHAN PA-C Unavailable Unavailable HUMBERTO, QUE NATHAN PA-C Unavailable Unavailable HUMBERTO, QUE NATHAN PA-C Unavailable Unavailable NON, PHYSICIAN STAFF Unavailable Unavailable Re-disclosure Warning The records that [...] is protected by Article 27-F of the [employer] Public Health law. If you continue you may have access to information: Regarding HIV / AIDS; Provided by facilities licensed or operated by the [facility] [employer] Office of Mental Health; or Provided by the [facility] [employer] [facility] Office for People With Developmental Disabilities. If such information is present, then the following [employer] mandated warning applies: This information has been [...] Description Substance Reaction Status Data Source(s ) Propensity to adverse reactions ZIPRASIDONE ZIPRASIDONE [facility] Propensity to adverse reactions TRIMETHOPRIM Trimethoprim [facility] Propensity to adverse reactions SULFAMETHOXAZOLE Sulfamethoxazole [facility] Propensity to adverse reactions PENICILLINS Penicillin [facility] Propensity to adverse reactions HALOPERIDOL HALOPERIDOL [facility] Propensity to adverse reactions DEXTROAMPHETAMINE DEXTROAMPHETAMINE [facility] Drug allergy Drug allergy AMOXICLIIN SWELLING, HIVES [facility] Drug allergy olanzapine [facility]apine [facility] Drug allergy trimethoprim trimethoprim "BLISTERS IN MOUTH" [facility] Drug allergy sulfamethoxazole sulfamethoxazole "BLISTERS IN MOUTH" [facility] Drug allergy haloperidol haloperidol [facility] Drug allergy Sulfa (Sulfonamide Antibiotics) Sulfa (Sulfonami de Antibiotics) "BLISTERS IN MOUTH" [facility] Drug allergy Penicillins Penicillins SWELLING, HIVES [facility] Encounters Encounter Providers Location Date Indications Data Source(s ) Outpatient Attender: KAROLYN VAN SONOGRAPHY TECHNOLOGIST 11/24/2020 03: 20:00 PM EDT [facility] Francesco Ritchie MD: [address] [place] [phone], Ph. Attender: Francesco Ritchie MD [place] - [facility] Medical 11/12/2020 12:00:00 AM EDT MATIAS ([facility]) OutpatientOFFICE VISIT, EST Attender: Nora MIKE [facility] [place] 11/05/2020 01:30:00 PM EDT - 11/05/2020 01:30:00 PM EDT Delusional disorders [facility] ([facility]) Delusional disorders Emergency Attender: EVONNE HAGENConsultant: STAFF NON 11/03/2020 11:35:00 AM EDT - 11/03/2020 03:27:00 PM EDT [facility] Patient discharged. Outpatient [facility] 10/12/2020 12:00:00 AM EDT eCW1 ([facility]) Emergency Attender: Matt Ruby MDConsultant: STAFF NON 10/03/2020 06:06:00 PM EDT - 10/03/2020 07:27:00 PM EDT [facility] Patient discharged. Inpatient Attender: JEWELIDIA Elizabeth nder: MARY JO PARADA MDAdmitter: MARY JO PARADA MDReferrer: ANAHI ESCALERA NP [id number] 09/11/2020 03:40:00 PM EDT - 09/29/2020 03:01:00 PM EDT [facility] Patient discharged. Emergency Attender: ZAYNAB STEVEN MDConsultant: STAFF NON 09/09/2020 04:46:00 PM EDT - 09/09/2020 09:35:00 PM EDT [facility] Patient discharged. Outpatient Attender: KAROLYN VAN NP 09/03/2020 11: 00:00 AM EDT [facility] Outpatient [facility] 08/31/2020 12:00:00 AM EDT eCW1 ([facility]) Inpatient Attender: MIRLANDE Elizabeth nder: GENO GAMBLE MDAdmitter: JEWELIDIA FUNEZ MDReferrer: KARI OTERO MD [id number] 08/25/2020 03:33:00 PM EDT - 08/27/2020 12:52:00 PM EDT [facility] Patient discharged. Inpatient Attender: MIRLANDE Elizabeth nder: MARY JO PARADA MDAttender: Hiral Liriano MDAdmitter: MARY JO PARADA MDReferrer: MARY JO PARADA MD [id number] 08/06/2020 12:00:00 AM EDT - 08/17/2020 12:08:00 PM EDT Suicidal ideations [facility] Suicidal ideations Patient discharged. Outpatient [facility] 07/22/2020 12:00:00 AM EDT eCW1 ([facility]) Outpatient Attender: Jane Edward 07/15/2020 08:03:00 AM E DT [facility] Outpatient [facility] 07/15/2020 12:00:00 AM EDT eCW1 ([facility]) Outpatient [facility] 07/12/2020 12:00:00 AM EDT eCW1 ([facility]) Emergency Attender: EVONNE Garzasultant: STAFF NON 06/28/2020 07:41:00 PM EDT - 06/28/2020 09:08:00 PM EDT [facility] Patient discharged. Emergency Attender: EVONNE Lackeyant: STAFF NON 06/16/2020 04:22:00 PM EDT - 06/16/2020 08:01:00 PM EDT [facility] Patient discharged. Outpatient Attender: Jane Stonerender: JANE EDWARD 06/16/2020 09:02:00 AM EDT [facility] Outpatient [facility] 06/14/2020 12:00:00 AM EDT eCW1 ([facility]) Outpatient [facility] 06/11/2020 12:00:00 AM EDT eCW1 ([facility]) Outpatient Attender: Jane Denson: JANE EDWARD 05/26/2020 05:00:00 PM EDT [facility] Outpatient [facility] 05/26/2020 12:00:00 AM EDT eCW1 ([facility]) Outpatient [facility] 05/24/2020 12:00:00 AM EDT eCW1 ([facility]) Outpatient [facility] 05/24/2020 12:00:00 AM EDT eCW1 ([facility]) Outpatient [facility] 05/14/2020 12:00:00 AM EDT eCW1 ([facility]) Outpatient [facility] 05/04/2020 12:00:00 AM EST eCW1 ([facility]) Outpatient Attender: KAROLYN VAN NP 04/29/2020 01: 20:00 PM EST [facility] Outpatient [facility] 04/28/2020 12:00:00 AM EST eCW1 ([facility]) [facility]patient [facility] [facility] 04/28/2020 12:00:00 AM EST eCW1 ([facility]) Outpatient [facility] 04/23/2020 12:00:00 AM EST eCW1 ([facility]) Outpatient Attender: Jane Denson: JANE EDWARD 04/20/2020 03:00:00 PM EST [facility] Outpatient [facility] 04/19/2020 12:00:00 AM EST eCW1 ([facility]) Outpatient [facility] 04/16/2020 12:00:00 AM EST eCW1 ([facility]) Outpatient Attender: FAHAD MOONEY MD 04/15/2020 09:4 5:00 AM [facility] Outpatient [facility] 04/12/2020 12:00:00 AM EST eCW1 ([facility]) Outpatient [facility] 04/12/2020 12:00:00 AM EST eCW1 ([facility]) Outpatient [facility] 04/08/2020 12:00:00 AM EST eCW1 ([facility]) Outpatient [facility] 04/08/2020 12:00:00 AM EST eCW1 ([facility]) Outpatient [facility] 04/08/2020 12:00:00 AM EST eCW1 ([facility]) Outpatient [facility] 04/05/2020 12:00:00 AM EST eCW1 ([facility]) Outpatient Attender: NATHAN PAUL PA-C 03/30/2020 10:30:00 AM [facility] Outpatient Attender: Shira Youngblood PA-C 03/30/2020 10:18 :00 AM [facility] Outpatient [facility] 03/30/2020 12:00:00 AM EST eCW1 ([facility]) Outpatient Attender: Jane EdwardAttender: JANE EDWARD 03/23/2020 02:00:00 PM [facility] Outpatient Attender: Jane EdwardAttender: JANE EDWARD 03/17/2020 10:30:00 AM [facility] Outpatient Attender: Jane Stonerender: JANE EDWARD 03/11/2020 04:00:00 PM [facility] Outpatient Attender: FAHAD MOONEY MD 03/11/2020 06:3 0:00 AM [facility] Admission cancelled. Disregard status an d admitted date. Outpatient Attender: KAROLYN VAN NP 03/09/2020 03: 40:00 PM [facility] Outpatient [facility] 03/03/2020 12:00:00 AM EST eCW1 ([facility]) Outpatient Attender: Shira Becerraferrer: Shira Youngblood PA-C EMERGENCY ROOM-LAB 03/01/2020 04:49:00 PM EST - 03/01/2020 04:49:00 PM [facility] Outpatient Attender: Shira Youngblood PA-C 03/01/2020 03:45 :00 PM [facility] Outpatient [facility] 03/01/2020 12:00:00 AM EST eCW1 ([facility]) Outpatient [facility] 03/01/2020 12:00:00 AM EST eCW1 ([facility]) Outpatient Attender: KAROLYN VAN NP 02/18/2020 02: 40:00 PM [facility] Outpatient Attender: Kassidy SERRANO 02/18/2020 10:00:0 0 AM [facility] Outpatient [facility] 02/18/2020 12:00:00 AM EST eCW1 ([facility]) Outpatient [facility] 02/10/2020 12:00:00 AM EST eCW1 ([facility]) Outpatient [facility] 02/03/2020 12:00:00 AM EST eCW1 ([facility]) Outpatient [facility] 01/14/2020 12:00:00 AM EST eCW1 ([facility]) Outpatient [facility] 01/06/2020 12:00:00 AM EST eCW1 ([facility]) Outpatient Attender: JOHNATHON PATEL 01/02/2020 10:06:00 [facility] Outpatient [facility] 01/02/2020 12:00:00 AM EST eCW1 ([facility]) Outpatient Attender: Jane EdwardAttender: JANE EDWARD 01/01/2020 02:30:00 PM [facility] Outpatient Attender: KAROLYN VAN NP 12/24/2019 11: 00:00 AM [facility] Outpatient Attender: Shira Youngblood PA-C 12/24/2019 08:24 :00 AM [facility] Outpatient [facility] 12/24/2019 12:00:00 AM EDT eCW1 ([facility]) Outpatient Attender: Jane dEwardAttender: JANE EDWARD 12/23/2019 01:54:00 PM EDT [facility] Outpatient [facility] 12/23/2019 12:00:00 AM EDT eCW1 ([facility]) Outpatient Attender: Mavis PATEL 12/12/2019 11:3 5:02 AM EDT [facility] Outpatient Attender: Jane EdwardAttender: JANE EDWARD 12/11/2019 03:00:00 PM EDT [facility] Outpatient [facility] 12/09/2019 12:00:00 AM EDT eCW1 ([facility]) Outpatient Attender: Mavis PATEL 12/05/2019 01:2 6:01 PM EDT [facility] Inpatient Attender: PRERNA RIOS MDAdmitter: PRERNA Alvarado MD ER-3RD 12/05/2019 10:08:00 AM EDT - 12/10/2019 01:07:00 PM EDT [facility]spital Patient discharged. Outpatient Attender: NATHAN PAUL PA-C 12/05/2019 09:03:00 AM [facility] Admission cancelled. Disregard status an d admitted date. Inpatient Attender: BEHZAD SOTO MD Attender: BEHZAD SOTO MDAttender: DIOGENES BUENO MDAttender: DIOGENES BUENO MDAdmitter: BEHZAD SOTO MD ER-ICU 12/04/2019 11:06:00 PM EDT - 12/05/2019 10:03:00 AM EDT [facility] Patient discharged. Emergency Attender: GINGER Salaser: Melissa Youngblood PA-C EMERGENCY ROOM-ER 12/04/2019 04:21:00 PM EDT - 12/04/2019 08:40:00 PM EDT [facility] Patient discharged. Outpatient Attender: KAROLYN VAN NP 12/04/2019 03: 11:00 PM EDT [facility] Outpatient Attender: Mavis PATEL 11/29/2019 07:0 4:03 PM EDT [facility] Outpatient Attender: JOHNATHON PATEL 11/29/2019 07:04:01 P M EDT [facility] Outpatient Attender: Mavis PAETL 11/24/2019 12:2 9:00 PM EDT [facility] Emergency Attender: EVONNE Garzasuant: STAFF CAMPOVERDE 11/07/2019 12:19:00 AM EDT - 11/07/2019 04:20:00 AM EDT [facility] Patient discharged. Outpatient [facility] 11/07/2019 12:00:00 AM EDT eCW1 ([facility]) Outpatient Attender: Mavis PATEL 11/04/2019 02:2 6:02 PM EDT [facility] Outpatient Attender: KAROLYN VAN NP 11/04/2019 11: 40:00 AM [facility] Outpatient Attender: Mavis PATEL 11/02/2019 01:2 6:00 PM EDT [facility] Outpatient Attender: Mavis PATEL 10/31/2019 06:0 2:00 PM EDT [facility] Outpatient Attender: JOHNATHON PATEL 10/31/2019 06:01:59 P M EDT [facility] Outpatient Attender: Mavis PATEL 10/31/2019 06:0 1:03 PM EDT [facility] Outpatient Attender: JOHNATHON PATEL 10/31/2019 06:01:01 P M EDT [facility] Outpatient Attender: Shira Youngblood PA-C 10/31/2019 09:06 :00 AM [facility] Outpatient [facility] 10/31/2019 12:00:00 AM EDT eCW1 ([facility]) Outpatient Attender: Jane EdwardAttender: JANE EDWARD 10/27/2019 11:00:00 AM [facility] Outpatient Attender: KAROLYN VAN NP 10/21/2019 03: 20:00 PM [facility] Outpatient Attender: KATRIN BLUM MDAttender: KATRIN BLUM 10/06/2019 09:37:00 AM [facility] Outpatient Attender: KATRIN BLUM MDAttender: KATRIN BLUM 08/04/2019 09:42:00 AM [facility] Outpatient Attender: KATRIN BLUM MDAttender: KATRIN BLUM 07/07/2019 03:30:00 PM [facility] Outpatient Attender: KATRIN BLUM MDAttender: KATRIN BLUM 04/21/2019 10:29:00 AM [facility] Outpatient Attender: MAHESH RECINOS MDAttender: MAHESH RECINOS 02/24/2019 01:46:00 PM [facility] Outpatient Attender: Jane EdwardAttender: JANE CHEYANNE 02/21/2019 10:00:00 AM [facility] Outpatient Attender: MAHESH RECINOS MDAttender: MAHESH RECINOS 02/10/2019 02:18:00 PM [facility] Inpatient Attender: CHAO GUERRA MDAttdoug harjinder: PRERNA RIOS MDAdmitter: PRERNA RIOS MD ER-3RD 12/23/2018 04:01:00 PM EDT - 12/26/2018 01:22:00 PM T [facility] Patient discharged. Inpatient Attender: ONDINA RAMIREZ MDAdmitter: ONDINA RAMIREZ MD E R-ICU 12/19/2018 05:26:00 PM EDT - 12/23/2018 03:42:00 PM EDT [facility]ital Patient discharged. Emergency Attender: [facility] 03:51:00 PM EDT - 12/19/2018 04:47:00 PM [facility] Patient discharged. Medications Medication Brand Name Start Date Product Form Dose Route Admi nistrative Instructions Pharmacy Instructions Status Indications Reaction Description Data Source(s) gabapentin 800 MG Oral Tablet GABAPENTIN 12/14/2020 12:00:00 AM EDT ta blet 90 TAKE ONE TABLET BY MOUTH THREE TIMES A DAY FOR NEUROPATHY TAKE ONE TABLET BY MOUTH THREE TIMES A DAY FOR NEUROPATHY SOLD: 12/15/2020 [facility] 1,000 mg 11/18/2020 12:00:00 AM EDT tablet 60 TAKE ONE TABLET BY MOUTH TWICE A DAY FOR SEIZURES TAKE ONE TABLET BY MOUTH TWICE A DAY FOR SEIZURES SOLD : 11/23/2020 [facility] gabapentin 800 MG Oral Tablet GABAPENTIN 11/18/2020 12:00:00 AM EDT ta blet 90 TAKE ONE TABLET BY MOUTH THREE TIMES A DAY FOR NEUROPATHY TAKE ONE TABLET BY MOUTH THREE TIMES A DAY FOR NEUROPATHY SOLD: 11/23/2020 [facility] 100 mg 11/17/2020 12:00:00 AM EDT tablet 30 TAKE ONE TABLET BY MOUTH AT BEDTIME TAKE ONE TABLET BY MOUTH AT BEDTIME SOLD: 11/23/2020 [facility] gabapentin 800 MG Oral Tablet GABAPENTIN 11/02/2020 12:00:00 AM EDT ta blet 21 TAKE ONE TABLET BY MOUTH THREE TIMES A DAY FOR NEUROPATHY TAKE ONE TABLET BY MOUTH THREE TIMES A DAY FOR NEUROPATHY SOLD: 11/04/2020 [facility] 21 mg/24 hr 11/02/2020 12:00:00 AM EDT patch 24 hour 7 APPLY ONE PATCH TO THE SKIN ONCE DAILY FOR NICOTINE WITHDRAWAL APPLY ONE PATCH TO THE SKIN ONCE DAILY FOR NICOTINE WITHDRAWAL SOLD: 11/04/2020 [facility] 25 mg 11/02/2020 12:00:00 AM EDT tablet 9 TAKE ONE TABLET BY MOUTH TWICE A DAY NEEDED FOR MIGRAINE TAKE ONE TABLET BY MOUTH TWICE A DAY NEEDED FOR MIGRAINE SOLD: 11/04/2020 [facility] 90 mcg/actuation 11/02/2020 12:00:00 AM EDT HFA aerosol inha ler 8 INHALE TWO PUFFS BY MOUTH EVERY 4 HOURS NEEDED FOR SHORTNESS OF BREATH INHALE TWO PUFFS BY MOUTH EVERY 4 HOURS NEEDED FOR SHORTNESS OF BREATH SOLD: 11/04/2020 [facility] Citalopram 20 MG Oral Tablet CITALOPRAM HYDROBROMIDE 11/02/2020 12:00:00 AM EDT tablet 7 TAKE ONE TABLET BY MOUTH EVERY D AY FOR DEPRESSION TAKE ONE TABLET BY MOUTH EVERY DAY FOR DEPRESSION SOLD: 11/04/2020 [facility] Metronidazole 500 MG Oral Tablet METRONIDAZOLE 11/02/2020 12:0 0:00 AM EDT tablet 9 TAKE ONE TABLET BY MOUTH EVERY 1 2 HOURS FOR BLADDER INFECTION TAKE ONE TABLET BY MOUTH EVERY 12 HOURS FOR BLADDER INFECTION SOLD: 11/04/2020 [facility] Fluticasone propionate 0.05 MG/ACTUAT Metered Dose [facility] 50 mcg/actuation FLUTICASONE PROPIONATE 11/02/2020 12:00:00 AM EDT spray,suspension 16 USE 2 SPRAYS IN EACH NOSTRIL DAILY NEEDED FOR ALLERGIES USE 2 SPRAYS IN EACH NOSTRIL DAILY NEEDED FOR ALLERGIES SOLD: 11/04/2020 [facility] 1,000 mg 11/02/2020 12:00:00 AM EDT tablet 14 TAKE ONE TABLET BY MOUTH TWICE A DAY FOR SEIZURES TAKE ONE TABLET BY MOUTH TWICE A DAY FOR SEIZURES SOLD : 11/04/2020 [facility] 100 mg 11/02/2020 12:00:00 AM EDT tablet 14 TAKE ONE TABLET BY MOUTH TWICE A DAY FOR ANTIPSYCHOTIC TAKE ONE TABLET BY MOUTH TWICE A DAY FOR ANTIPSYCHOTIC SOLD: 11/04/2020 [facility] 8.6-50 mg 11/02/2020 12:00:00 AM EDT tablet 14 TAKE TWO TABLETS BY MOUTH TWICE A DAY NEEDED FOR CONSTIPATION TAKE TWO TABLETS BY MOUTH TWICE A DAY NEEDED FOR CONSTIPATION SOLD: 11/04/2020 [facility] Clonidine Hydrochloride 0.2 MG Oral Tablet CLONIDINE HCL 11/02/2020 12:00:00 AM EDT tablet 21 TAKE ONE TABLET BY MOUTH THREE TIMES A DAY NEEDED FOR ANXIETY TAKE ONE TABLET BY MOUTH THREE TIMES A DAY NEEDED F OR ANXIETY SOLD: 11/04/2020 [facility] 1 mg 11/02/2020 12:00:00 AM EDT tablet 14 TAKE ONE TABLET BY MOUTH TWICE A DAY NEEDED FOR EXTRAPYRAMIDAL SYMPTOMS TAKE ONE TABLET BY MOUTH TWICE A DAY NEEDED FOR EXTRAPYRAMIDAL SYMPTOMS SOLD: 11/04/2020 [facility] 100 mg 10/26/2020 12:00:00 AM EDT tablet 14 TAKE ONE TABLET BY MOUTH TWICE A DAY FOR MOOD TAKE ONE TABLET BY MOUTH TWICE A DAY FOR MOOD SOLD: 11/04/2020 [facility] 10 mg 10/25/2020 12:00:00 AM EDT tablet 7 TAKE ONE TABLET BY MOUTH EVERY DAY FOR MOOD TAKE ONE TABLET BY MOUTH EVERY DAY FOR MOOD SOLD: 11/04/2020 [facility] 1 mg 10/12/2020 12:00:00 AM EDT tablet 14 TAKE ONE TABLET BY MOUTH TWICE A DAY NEEDED FOR EPS TAKE ONE TABLET BY MOUTH TWICE A DAY NEEDED FOR EPS SOLD: 10/13/2020 [facility] Clonidine Hydrochloride 0.2 MG Oral Tablet CLONIDINE HCL 10/12/2020 12:00:00 AM EDT tablet 21 TAKE ONE TABLET BY MOUTH THREE TIMES A DAY NEEDED FOR ANXIETY TAKE ONE TABLET BY MOUTH THREE TIMES A DAY NEEDED F OR ANXIETY SOLD: 10/13/2020 [facility] 21 mg/24 hr 10/12/2020 12:00:00 AM EDT patch 24 hour 7 APPLY 1 PATCH TO THE SKIN DAILY FOR NICOTINE WITHDRAWAL APPLY 1 PATCH TO THE SKIN DAILY FOR MELA GRANT WITHDRAWAL SOLD: 10/13/2020 [facility] Cephalexin 500 MG Oral Capsule CEPHALEXIN 10/07/2020 12:00:00 AM EDT capsule 20 TAKE ONE CAPSULE BY MOUTH TWICE A DAY TAKE ONE CAPSULE BY MO RUST TWICE A DAY SOLD: 10/07/2020 [facility] 25 mg 10/05/2020 12:00:00 AM EDT tablet 9 TAKE ONE TABLET BY MOUTH DIRECTED TAKE ONE TABLET BY MOUTH DIRECTED SOLD: 10/07/2020 [facility] 90 mcg/actuation 10/05/2020 12:00:00 AM EDT HFA aerosol inha ler 8 INHALE TWO PUFFS BY MOUTH EVERY 4-6 HOURS NEEDED FOR WHEEZING INHALE TWO PUFFS BY MOUTH EVERY 4-6 HOURS NEEDED FOR WHEEZING SOLD: 10/07/2020 [facility] Citalopram 10 MG Oral Tablet Citalopram Hydrobromide 1 0 MG Oral Tablet (CELEXA) Citalopram Hydrobromide 10 MG Oral Tablet (CELEXA) 09/30/2020 12:00:00 AM EDT 10 mg Oral active Take 1 tablet by mouth d [facility] Buprenorphine 8 MG / Naloxone 2 MG Oral Strip buprenorphine-naloxone (SUBOXONE) 8-2 MG per sublingual film 2 Film buprenorphine-naloxone (SUBOXONE) 8-2 MG per sublingual film 2 Film 09/29/2020 09:00:00 AM EDT 2 {film} Sublingual active 2 Film, Sublingual, Daily Standard, First dose (after last reorder) on Sun09/29/20 at 0900, For 7 days [facility] Medication administered onsite 1,000 mg 09/29/2020 12:00:00 AM EDT tablet 30 TAKE ONE TABLET BY MOUTH TWICE A DAY TAKE ONE TABLET BY MOUTH TWICE A DAY SOLD: 09/30/2020 [facility] 1,000 mg 09/29/2020 12:00:00 AM EDT tablet 30 TAKE ONE TABLET BY MOUTH TWICE A DAY TAKE ONE TABLET BY MOUTH TWICE A DAY SOLD: 10/13/2020 [facility] gabapentin 600 MG Oral Tablet Gabapentin 600 MG Oral T ablet (NEURONTIN) Gabapentin 600 MG Oral Tablet (NEURONTIN) 09/29/2020 12:00:00 AM EDT 600 mg Oral active Take 1 tablet by [facility] Three times daily [facility] Levetiracetam 1000 MG Oral Tablet levETIRAcetam 1000 M G Oral Tablet (KEPPRA) levETIRAcetam 1000 MG Oral Tablet (KEPPRA) 09/29/2020 12:00:00 AM EDT 1000 mg Oral active Take 1 tablet by [facility] Two Times Daily [facility] Chlorpromazine hydrochloride 100 MG Oral Tablet chlorproMAZINE HCl 100 MG Oral Tablet (THORAZINE) chlorproMAZINE HCl 100 MG Oral Tablet (THORAZINE) 05/2020 12:00:00 AM EDT 100 mg Oral active Take 1 tablet by mouth Two Times Daily [facility] 600 mg 09/29/2020 12:00:00 AM EDT tablet 30 TAKE ONE TABLET BY MOUTH THREE TIMES A DAY TAKE ONE TABLET BY MOUTH THREE TIMES A DAY SOLD: 10/13/2020 [facility] 600 mg 09/29/2020 12:00:00 AM EDT tablet 30 TAKE ONE TABLET BY MOUTH THREE TIMES A DAY TAKE ONE TABLET BY MOUTH THREE TIMES A DAY SOLD: 09/30/2020 [facility] 100 mg 09/29/2020 12:00:00 AM EDT tablet 60 TAKE ONE TABLET BY MOUTH TWICE A DAY TAKE ONE TABLET BY MOUTH TWICE A DAY SOLD: 09/30/2020 [facility] 10 mg 09/29/2020 12:00:00 AM EDT tablet 30 TAKE ONE TABLET BY MOUTH EVERY DAY TAKE ONE TABLET BY MOUTH EVERY DAY SOLD: 09/30/2020 [facility] Chlorpromazine hydrochloride 100 MG Oral Tablet chlorproMAZINE (THORAZINE) tablet 100 mg chlorproMAZINE (THORAZINE) tablet 100 mg 09/27/2020 09 :00:00 PM EDT 100 mg Oral active 100 mg, Oral, 2 Times Daily, First dose (after last modification) on Sun09/27/20 at 2100, For 30 doses [facility] Medication administered onsite chlorproMAZINE (THORAZINE) injection 100 mg [id number] 09/27/2020 01:00:00 PM EDT 100 mg Intramuscular completed 100 mg, Intramuscular, Once, On Sun09/27/20 at 1300, For 1 dose
May be given over objection
[facility] Medication administered onsite chlorproMAZINE (THORAZINE) injection 100 mg [id number] 09/25/2020 02:00:00 PM EDT 100 mg Intramuscular completed 100 mg, Intramuscular, Once, On 09/25/20 at 1400, For 1 dose [facility] Medication administered onsite diphenhydrAMINE (BENADRYL) injection 50 mg [id number] 09/25/2020 02:00:00 PM EDT 50 mg Intramuscular completed 50 mg, Intramuscular, Once, On 09/25/20 at 1400, For 1 dose [facility] Medication administered onsite olanzapine 5 MG/ML Injectable Solution OLANZapine (ZYP REXA) injection 10 mg OLANZapine (ZYPREXA) injection 10 mg 09/25/2020 09:15:00 AM EDT 10 mg Intramuscular completed 10 mg, Intr amuscular, Once, On Sun09/25/20 at 0915, For 1 dose
Reconstitute 10 mg vial with 2.1 mL SWFI; resulting solution is ~5 mg/mL; Use within 1 hour following reconstitution.
[facility] Medication administered onsite Chlorpromazine hydrochloride 100 MG Oral Tablet chlorproMAZINE (THORAZINE) tablet 100 mg chlorproMAZINE (THORAZINE) tablet 100 mg 09/23/2020 10 :00:00 PM EDT 100 mg Oral aborted 100 mg, Oral, Nightly, First dose (after last modification) on Sun09/23/20 at 2200, For 28 doses [facility] Medication administered onsite gabapentin 300 MG Oral Capsule gabapentin (NEURONTIN) capsule 600 mg gabapentin (NEURONTIN) capsule 600 mg 09/23/2020 03:00:00 PM EDT 600 mg Oral active 600 mg, Oral, Three Times D aily Standard, Indications: substance use anxiety, First dose (after last modification) on Sun09/23/20 at 1500, For 57 doses [facility] Medication administered onsite Chlorpromazine hydrochloride 50 MG Oral Tablet chlorproMAZINE (THORAZINE) tablet 50 mg chlorproMAZINE (THORAZINE) tablet 50 mg 09/21/2020 10:00:00 PM E DT 50 mg Oral aborted 50 mg, Ora l, Nightly, First dose on Sun09/21/20 at 2200, For 30 days [facility] Medication administered onsite Ibuprofen 400 MG Oral Tablet ibuprofen (MOTRIN) tablet 400 mg ibuprofen (MOTRIN) tablet 400 mg 09/21/2020 09:30:00 PM EDT 400 mg Oral comp leted 400 mg, Oral, Once, On Sun09/21/20 at 2130, For 1 dose
Take with food.
[facility] Medication administered onsite Chlorpromazine hydrochloride 25 MG Oral Tablet chlorproMAZINE (THORAZINE) tablet 25 mg chlorproMAZINE (THORAZINE) tablet 25 mg 09/21/2020 03:00:00 PM E DT 25 mg Oral aborted 25 mg, Ora l, 2 Times Daily, First dose (after last modification) on Sun09/21/20 at 1500, For 30 doses [facility] Medication administered onsite Citalopram 20 MG Oral Tablet citalopram (CELEXA) table t 10 mg citalopram (CELEXA) tablet 10 mg 09/19/2020 09:00:00 AM EDT 10 mg Oral active 10 mg, Oral, Daily Standard, First dose on Sun09/19/20 at 0900, For 30 days [facility] Medication administered onsite Chlorpromazine hydrochloride 25 MG Oral Tablet chlorproMAZINE (THORAZINE) tablet 25 mg chlorproMAZINE (THORAZINE) tablet 25 mg 09/15/2020 12:15:00 PM E DT 25 mg Oral aborted 25 mg, Ora l, Three Times Daily Standard, First dose on Sun09/15/20 at 1215, For 30 days [facility] Medication administered onsite Nicotine 2 MG Oral Lozenge nicotine (NICORETTE) lozeng e 2 mg nicotine (NICORETTE) lozenge 2 mg 09/15/2020 10:22:02 AM EDT 2 mg Mouth/Th roat active 2 mg, Mouth/Throat, Every 2 hours PRN, Smoking cessation, Starting on Sun09/15/20 at 1022, For 30 days
Should not be chewed or swallowed; allow to dissolve slowly (~20-30 minutes)
[facility] Medication administered onsite gabapentin 400 MG Oral Capsule gabapentin (NEURONTIN) capsule 400 mg gabapentin (NEURONTIN) capsule 400 mg 09/14/2020 05:00:00 PM EDT 400 mg Oral aborted 400 mg, Oral, Three Times D aily Standard, Indications: substance use anxiety, First dose (after last modification) on Sun09/14/20 at 1700, For 84 doses [facility] Medication administered onsite Acetaminophen 325 MG Oral Tablet acetaminophen (TYLENO L) tablet 650 mg acetaminophen (TYLENOL) tablet 650 mg 09/13/2020 08:18:10 PM EDT 65 0 mg Oral active 650 mg, Oral, E very 6 hours PRN, Mild Pain (Pain Scale Score 1- 3), Starting on Sun09/13/20 at 2018, For 30 days
Maximum daily dose of acetaminophen is 3,000 mg from all sources in 24 hours.
[facility] Medication administered onsite 24 HR Nicotine 0.875 MG/HR Transdermal P atch nicotine (NICODERM CQ) 21 MG/24HR 1 patch nicotine (NICODERM CQ) 21 MG/24HR 1 patch 09/13/2020 09:00:00 AM EDT 1 {patch} Transdermal aborted 1 patch, Transdermal, Administer over 24 Hours, Daily Standard, First dose on Sun09/13/20 at 0900, For 30 days [facility] Medication administered onsite Bisacodyl 10 MG Rectal Suppository bisacodyl (DULCOLAX ) suppository 10 mg bisacodyl (DULCOLAX) suppository 10 mg 09/13/2020 08:49:03 AM EDT 10 mg Rectal active 10 mg, Rectal, Every 72 hours PRN, Constipation, Starting on Sun09/13/20 at 0849, For 30 days
Hold if patient has had BM within the past 2 days.
[facility] Medication administered onsite Docusate Sodium 100 MG Oral Capsule docusate sodium (C OLACE) capsule 100 mg docusate sodium (COLACE) capsule 100 mg 09/13/2020 08:49:03 AM EDT 100 mg Oral active 100 mg, Oral, 2 Times Daily PRN, Constipation, Starting on Sun09/13/20 at 0849, For 30 days [facility] Medication administered onsite sennosides, CUSTODIAL 8.6 MG Oral Tablet senna tablet 2 tablet sen na tablet 2 tablet 09/13/2020 08:49:03 AM EDT 2 {tbl} Oral active 2 tablet, Oral, Nightly PRN, Constipation, Starting on Sun09/13/20 at 0849, For 30 days [facility] Medication administered onsite Magnesium Hydroxide 80 MG/ML Oral Suspen arian magnesium hydroxide (MILK OF MAGNESIA) 400 MG/5ML oral suspension 45 mL magnesium hydroxide (MILK OF MAGNESIA) 400 MG/5ML oral suspension 45 mL 09/13/2020 08:49:03 AM EDT 45 mL Oral active 45 mL, Oral, N ightly PRN, Constipation, Starting on Sun09/13/20 at 0849, For 30 days
If serum creatinine > 2 notify provider before administering.
[facility] Medication administered onsite Asenapine 5 MG Sublingual Tablet Asenapine Maleate (SA PHRIS) SL tablet 5 mg Asenapine Maleate (SAPHRIS) SL tablet 5 mg 09/12/2020 09:00:00 PM EDT 5 mg Sublingual aborted 5 mg, Sublingu al, 2 Times Daily, First dose on 09/12/20 at 2100, For 30 days [facility] Medication administered onsite gabapentin 300 MG Oral Capsule gabapentin (NEURONTIN) capsule 300 mg gabapentin (NEURONTIN) capsule 300 mg 09/12/2020 05:00:00 PM EDT 300 mg Oral aborted 300 mg, Oral, Three Times D aily Standard, Indications: substance use anxiety, First dose on Sun09/12/20 at 1700, For 30 days [facility] Medication administered onsite Trazodone Hydrochloride 50 MG Oral Tablet trazodone (D ESYREL) tablet 50 mg trazodone (DESYREL) tablet 50 mg 09/12/2020 12:11:29 PM EDT 50 mg Oral active 50 mg, Oral, Nightly PRN, Sleep, Starting on 09/12/20 at 1211, For 30 days [facility] Medication administered onsite Hydroxyzine Hydrochloride 50 MG Oral Tablet hydrOXYzin e (ATARAX) tablet 50 mg hydrOXYzine (ATARAX) tablet 50 mg 09/12/2020 12:10:58 PM EDT 50 mg Oral active 50 mg, Oral, Every 6 hours PRN, Itching, Starting on 09/12/20 at 1210, For 700 hours [facility] Medication administered onsite Clonidine Hydrochloride 0.1 MG Oral Tablet cloNIDine ( CATAPRES) tablet 0.1 mg cloNIDine (CATAPRES) tablet 0.1 mg 09/12/2020 12:10:43 PM EDT 0.1 mg Oral active Attention Deficit Hyperactivity Disorder 0.1 mg, Oral, Three Times Daily-PRN, anxiety, Indications: Attention Deficit Hyperactivity Disorder, Starting on 09/12/20 at 1210, For 30 days [facility] Attention Deficit Hyperactivity Disorder Medication administered onsite Levetiracetam 500 MG Oral Tablet levetiracetam (KEPPRA ) tablet 1,000 mg levetiracetam (KEPPRA) tablet 1,000 mg 09/11/2020 09:00:00 PM EDT 1000 mg Oral active 1,000 mg, Oral , 2 Times Daily, First dose on 09/11/20 at 2100, For 81 doses [facility] Medication administered onsite Buprenorphine 8 MG / Naloxone 2 MG Oral Strip buprenorphine-naloxone (SUBOXONE) 8-2 MG per sublingual film 2 Film buprenorphine-naloxone (SUBOXONE) 8-2 MG per sublingual film 2 Film 09/11/2020 08:45:00 PM EDT 2 {film} Sublingual completed 2 Film, Sublingual, Daily Standard, First dose (after last modification) on 09/11/20 at 2045, For 18 doses [facility] Medication administered onsite benztropine mesylate 1 MG Oral Tablet benztropine (COG ENTIN) tablet 1 mg benztropine (COGENTIN) tablet 1 mg 09/11/2020 04:38:18 PM EDT 1 mg Oral active 1 mg, Oral, 2 Times Daily PRN, Tremor, Starting on 09/11/20 at 1638, For 30 days [facility] Medication administered onsite 100,000 unit/mL 09/02/2020 12:00:00 AM EDT suspension 200 TAKE 5ML FOUR TIMES A DAY TAKE 5ML FOUR TIMES A DAY SOLD: 09/02/2020 [facility] 2 % 09/01/2020 12:00:00 AM EDT ointment 22 APPLY THREE TIMES A DAY FOR 7 DAYS APPLY THREE TIMES A DAY FOR 7 DAYS SOLD: 09/01/2020 [facility] 8-2 mg 09/01/2020 12:00:00 AM EDT film [address] TWO FILMS UNDER THE TONGUE EVERY DAY MAXIMUM DAILY DOSE = [address] TWO FILMS UNDER THE TONGUE EVERY DAY MAXIMUM DAILY DOSE = 2 FILMS SOLD: 09/01/2020 [facility] Cephalexin 500 MG Oral Capsule CEPHALEXIN 09/01/2020 12:00:00 AM EDT capsule 28 TAKE 2 CAPSULES BY MOUTH EVERY 12 HOURS FOR 7 DAYS RAHAT E 2 CAPSULES BY MOUTH EVERY 12 HOURS FOR 7 DAYS SOLD: 09/01/2020 [facility] 10 mg 08/31/2020 12:00:00 AM EDT tablet, sublingual 10 PLACE ONE TABLET UNDER THE TONGUE TWICE A DAY PLACE ONE TABLET UNDER THE TONGUE TWICE A DAY SOLD: 09/01/2020 [facility] 1,000 mg 08/29/2020 12:00:00 AM EDT tablet 4 TAKE ONE TABLET BY MOUTH TWICE A DAY TAKE ONE TABLET BY MOUTH TWICE A DAY SOLD: 08/29/2020 [facility] 300 mg 08/29/2020 12:00:00 AM EDT capsule 12 TAKE TWO CAPSULES BY MOUTH THREE TIMES A DAY TAKE TWO CAPSULES BY MOUTH THREE TIMES A DAY SOLD: [facility] 500 unit/gram 08/27/2020 12:00:00 AM EDT ointment 28 APPLY TO AFFECTED AREA(S) TO FOREHEAD THREE TIMES A DAY FOR 10 DAYS APPLY TO AFFECTED AREA(S) TO FOREHEAD THREE TIMES A DAY FOR 10 DAYS SOLD: 08/27/2020 [facility] 10 mg 08/19/2020 12:00:00 AM EDT tablet, sublingual 30 PLACE ONE TABLET UNDER THE TONGUE TWICE A DAY PLACE ONE TABLET UNDER THE TONGUE TWICE A DAY SOLD: 08/19/2020 [facility] 8-2 mg 08/18/2020 12:00:00 AM EDT film 28 [address]ACE TWO FILMS UNDER THE TONGUE EVERY DAY MAXIMUM DAILY DOSE = [address] TWO FILMS UNDER THE TONGUE EVERY DAY MAXIMUM DAILY DOSE = 2 FILMS SOLD: 08/18/2020 [facility] Buprenorphine 8 MG / Naloxone 2 MG Oral Strip Buprenorphine HCl-Naloxone HCl 8-2 MG Sublingual Film (SUBOXONE) Buprenorphine HCl-Naloxone HCl 8-2 MG Sebastian blingual Film (SUBOXONE) 08/18/2020 12:00:00 AM EDT 2 {film} Sublingual aborted Place 2 Film under the tongue daily [facility] Diphenhydramine Hydrochloride 25 MG Oral Capsule diphenhydrAMINE (BENADRYL) capsule 25 mg diphenhydrAMINE (BENADRYL) capsule 25 mg 08/17/2020 10 :11:01 AM EDT 25 mg Oral active 25 mg, O ral, Nightly PRN, Sleep, Starting on Sun08/17/20 at 1011, For 30 days [facility] Medication administered onsite Buprenorphine 8 MG / Naloxone 2 MG Subli ngual Tablet Buprenorphine HCl-Naloxone HCl 8-2 MG Sublingual Tablet Sublingual (SUBOXONE) Buprenorphine HCl-Naloxone HCl 8-2 MG Sublingual Tablet Sublingual (SUBOXONE) 08/17/2020 12:00:00 AM EDT 1 {tbl} Sublingual active Place 1 t ablet under the tongue Two Times Daily Use supply at home, Max Daily Dose: 2 tablets [facility] Asenapine 10 MG Sublingual Tablet Asenap ine Maleate 10 MG Sublingual Tablet Sublingual (SAPHRIS) Asenapine Maleate 10 MG Sublingual Table t Sublingual (SAPHRIS) 08/17/2020 12:00:00 AM EDT 10 mg Sublingual abor keven Place 1 tablet under the tongue Two Times Daily [facility] 10 mg 08/17/2020 12:00:00 AM EDT tablet 30 TAKE ONE TABLET BY MOUTH EVERY DAY TAKE ONE TABLET BY MOUTH EVERY DAY SOLD: 08/17/2020 [facility] Clonidine Hydrochloride 0.2 MG Oral Tabl et cloNIDine HCl 0.2 MG Oral Tablet (CATAPRES) cloNIDine HCl 0.2 MG Oral Tablet (CATAPRES) 08/17/2020 12:00:00 AM EDT 0.2 mg Oral active Take 1 tablet by mouth daily as needed [facility] gabapentin 300 MG Oral Capsule Gabapentin 300 MG Oral Capsule (NEURONTIN) Gabapentin 300 MG Oral Capsule (NEURONTIN) 08/17/2020 12:00:00 AM EDT 600 mg Oral aborted Take 2 capsules by m outh Three times daily [facility] benztropine mesylate 1 MG Oral Tablet Be nztropine Mesylate 1 MG Oral Tablet (COGENTIN) Benztropine Mesylate 1 MG Oral Tablet (COGENTIN) 08/17 12:00:00 AM EDT 1 mg Oral active Take 1 t ablet by mouth Two times daily as needed [facility] 25 mg 08/17/2020 12:00:00 AM EDT capsule 15 TAKE 1 CAPSULE BY MOUTH NIGHTLY NEEDED FOR SLEEP FOR UP TO 10 DAYS TAKE 1 CAPSULE BY MOUTH NIGHTLY NEEDE D FOR SLEEP FOR UP TO 10 DAYS SOLD: 08/17/2020 [facility] Diphenhydramine Hydrochloride 25 MG Oral Capsule diphenhydrAMINE HCl 25 MG Oral Capsule (BENADRYL) diphenhydrAMINE HCl 25 MG Oral Capsule (BENADRYL) 07/28 12:00:00 AM EDT 25 mg Oral active Take 1 capsule by mouth nightly as needed for Sleep for up to 10 days [facility] 1 mg 08/17/2020 12:00:00 AM EDT tablet 30 TAKE ONE TABLET BY MOUTH TWICE A DAY NEEDED TAKE ONE TABLET BY MOUTH TWICE A DAY NEEDED SOLD: 08/17/2020 [facility] 300 mg 08/17/2020 12:00:00 AM EDT capsule 84 TAKE TWO CAPSULES BY MOUTH THREE TIMES A DAY TAKE TWO CAPSULES BY MOUTH THREE TIMES A DAY SOLD: [facility] Clonidine Hydrochloride 0.2 MG Oral Tablet CLONIDINE HCL 08/17/2020 12:00:00 AM EDT tablet 15 TAKE ONE TABLET BY MOUTH CORWIN DAY NEEDED TAKE ONE TABLET BY MOUTH EVERY DAY NEEDED SOLD: 08/17/2020 [facility] benztropine mesylate 1 MG Oral Tablet benztropine (COG ENTIN) tablet 1 mg benztropine (COGENTIN) tablet 1 mg 08/16/2020 09:00:00 PM EDT 1 mg Oral active 1 mg, Oral, 2 Times Daily, First dose (after last modification) on Sun08/16/20 at 2100, For 60 doses [facility] Medication administered onsite Asenapine 10 MG Sublingual Tablet Asenapine Maleate (S APHRIS) SL tablet 10 mg Asenapine Maleate (SAPHRIS) SL tablet 10 mg 08/11/2020 08:00:00 PM EDT 10 mg Sublingual active 10 mg, Subling ual, 2 Times Daily, First dose (after last modification) on Sun08/11/20 at 2000, For 53 doses [facility] Medication administered onsite olanzapine 10 MG Disintegrating Oral Tab let OLANZapine zydis (ZYPREXA) disintegrating tablet 10 mg OLANZapine zydis (ZYPREXA) disintegratin g tablet 10 mg 08/11/2020 03:15:00 PM EDT 10 mg Oral completed 10 mg, Oral, Once, On Sun08/11/20 at 1515, For 1 dose [facility] Medication administered onsite 50 mg 08/09/2020 12:00:00 AM EDT tablet 7 TAKE ONE TABLET BY MOUTH EVERY DAY NEEDED FOR MIGRAINE TAKE ONE TABLET BY MOUTH EVERY DAY NE EDED FOR MIGRAINE SOLD: 08/17/2020 [facility] Asenapine 5 MG Sublingual Tablet Asenapine Maleate (SA PHRIS) SL tablet 5 mg Asenapine Maleate (SAPHRIS) SL tablet 5 mg 08/08/2020 06:30:00 PM EDT 5 mg Sublingual aborted 5 mg, Sublingu al, 2 Times Daily, First dose (after last modification) on Sun08/08/20 at 1830, For 30 days [facility] Medication administered onsite Lurasidone Hydrochloride 40 MG Oral Tablet lurasidone HCl (LATUDA) tablet 20 mg lurasidone HCl (LATUDA) tablet 20 mg 08/07/2020 09:00:00 AM EDT 20 mg Oral aborted 20 mg, Oral, Burt ly Standard, First dose on Sun08/07/20 at 0900, For 30 days
Administer with food.
[facility] Medication administered onsite 1,000 mg 08/07/2020 12:00:00 AM EDT tablet 14 TAKE ONE TABLET BY MOUTH TWICE A DAY FOR SEIZURES TAKE ONE TABLET BY MOUTH TWICE A DAY FOR SEIZURES SOLD : 08/17/2020 [facility] Levetiracetam 500 MG Oral Tablet levETIRAcetam (KEPPRA ) tablet 1,000 mg levETIRAcetam (KEPPRA) tablet 1,000 mg 08/06/2020 09:00:00 PM EDT 1000 mg Oral active 1,000 mg, Oral , 2 Times Daily, First dose on Sun08/06/20 at 2100, For 30 days [facility] Medication administered onsite gabapentin 300 MG Oral Capsule gabapentin (NEURONTIN) capsule 600 mg gabapentin (NEURONTIN) capsule 600 mg 08/06/2020 09:00:00 PM EDT 600 mg Oral active Neuropathic Pain 600 mg, Oral, Three Times D aily Standard, Indications: Neuropathic Pain, First dose on Sun08/06/20 at 2100, For 30 days [facility] Neuropathic Pain Medication administered onsite Buprenorphine 8 MG / Naloxone 2 MG Subli ngual Tablet buprenorphine-naloxone (SUBOXONE) 8-2 MG per sublingual tablet 1 tablet buprenorphine-naloxone (SUBOXONE) 8-2 MG per sublingual tablet 1 tablet 08/06/2020 09:00:00 PM EDT Sublingual active 1 tablet (8 mg of buprenorphine), Sublingual, 2 Times Daily, First dose on Sun08/06/20 at 2100, For 26 doses [facility] Medication administered onsite Hydroxyzine Hydrochloride 50 MG Oral Tablet hydrOXYzin e (ATARAX) tablet 50 mg hydrOXYzine (ATARAX) tablet 50 mg 08/06/2020 07:39:32 PM EDT 50 mg Oral active 50 mg, Oral, Every 6 hours PRN, Anxiety, Starting on Sun08/06/20 at 1939, For 30 days [facility] Medication administered onsite Trazodone Hydrochloride 50 MG Oral Tablet trazodone (D ESYREL) tablet 50 mg trazodone (DESYREL) tablet 50 mg 08/06/2020 07:39:25 PM EDT 50 mg Oral active 50 mg, Oral, Nightly PRN, Sleep, Starting on Sun08/06/20 at 1939, For 30 days [facility] Medication administered onsite Aluminum Hydroxide 40 MG/ML / Magnesium Hydroxide 40 MG/ML / Simethicone 4 MG/ML Oral Suspension aluminum & magnesium hydroxide-simethicone (MAALOX PLUS) 200-200-20 MG/5ML oral suspension 30 mL aluminum & magnesium hydroxide- simethicone (MAALOX PLUS) 200-200-20 MG/5ML oral suspension 30 mL 08/06/2020 07:39:14 PM EDT 30 mL Oral active 30 mL, Oral, Every 6 hours PRN, Indigestion, Starting on Sun08/06/20 at 1939, For 30 days [facility] Medication administered onsite Magnesium Hydroxide 80 MG/ML Oral Suspen arian magnesium hydroxide (MILK OF MAGNESIA) 400 MG/5ML oral suspension 15 mL magnesium hydroxide (MILK OF MAGNESIA) 400 MG/5ML oral suspension 15 mL 08/06/2020 07:39:11 PM EDT 15 mL Oral active 15 mL, Oral, D aily PRN, Constipation, Starting on Sun08/06/20 at 1939, For 30 days
If serum creatinine > 2 notify provider before administering.
[facility] Medication administered onsite Acetaminophen 325 MG Oral Tablet acetaminophen (TYLENO L) tablet 650 mg acetaminophen (TYLENOL) tablet 650 mg 08/06/2020 07:39:08 PM EDT 65 0 mg Oral active 650 mg, Oral, E very 6 hours PRN, Mild Pain (Pain Scale Score 1- 3), Starting on Sun08/06/20 at 1939, For 30 days
Maximum daily dose of acetaminophen is 3,000 mg from all sources in 24 hours.
[facility] Medication administered onsite Clonidine Hydrochloride 0.2 MG Oral Tablet cloNIDine ( CATAPRES) tablet 0.2 mg cloNIDine (CATAPRES) tablet 0.2 mg 08/06/2020 07:36:40 PM EDT 0.2 mg Oral active 0.2 mg, Oral, Three Times Daily-PRN, anxiety, Indications: anxiety, Starting on Sun08/06/20 at 1936, For 30 days [facility] Medication administered onsite benztropine mesylate 1 MG Oral Tablet benztropine (COG ENTIN) tablet 1 mg benztropine (COGENTIN) tablet 1 mg 08/06/2020 07:36:33 PM EDT 1 mg Oral aborted 1 mg, Oral, 2 Times Daily PRN, Tremor, Starting on Sun08/06/20 at 1936, For 30 days [facility] Medication administered onsite 20 mg 08/06/2020 12:00:00 AM EDT tablet 7 TAKE 1 TABLET BY MOUTH AT 8:00 FOR MOOD TAKE 1 TABLET BY MOUTH AT 8:00 FOR MOOD SOLD: 08/17/2020 [facility] Clonidine Hydrochloride 0.2 MG Oral Tablet CLONIDINE HCL 08/03/2020 12:00:00 AM EDT tablet 21 TAKE 1 TABLET [0 .2MG] BY MOUTH THREE TIMES A DAY NEEDED FOR ANXIETY TAKE 1 TABLET [0.2MG] BY MOUTH THREE TIMES A DAY NE EDED FOR ANXIETY SOLD: 08/03/2020 [facility] 21 mg/24 hr 08/03/2020 12:00:00 AM EDT patch 24 hour 7 APPLY 1 PATCH TOPICALLY DAILY FOR NICOTINE WITHDRAWL APPLY 1 PATCH TOPICALLY DAILY FOR NICOTINE WITHDRAWL SOLD: 08/03/2020 [facility] 1 mg 08/03/2020 12:00:00 AM EDT tablet 14 TAKE ONE TABLET BY MOUTH TWICE A DAY NEEDED FOR EPS TAKE ONE TABLET BY MOUTH TWICE A DAY NEEDED FOR EPS SOLD: 08/03/2020 [facility] 300 mg 08/02/2020 12:00:00 AM EDT capsule 42 TAKE TWO CAPSULES BY MOUTH THREE TIMES A DAY FOR ANXIETY TAKE TWO CAPSULES BY MOUTH THREE TIMES A DAY FOR ANXIETY SOLD: 08/03/2020 [facility] 50 mg 08/02/2020 12:00:00 AM EDT tablet 7 TAKE ONE TABLET BY MOUTH AT BEDTIME NEEDED FOR INSOMNIA TAKE ONE TABLET BY MOUTH AT BEDTIME N EEDED FOR INSOMNIA SOLD: 08/03/2020 [facility] 50 mcg/actuation 07/25/2020 12:00:00 AM EDT spray,suspension 16 SPRAY 2 SPRAYS IN EACH NOSTRIL ONCE DAILY SPRAY 2 SPRAYS IN EACH NOSTRIL ONCE DAILY SOLD: 07/25/2020 [facility] Cephalexin 500 MG Oral Capsule CEPHALEXIN 07/25/2020 12:00:00 AM EDT capsule 40 TAKE ONE CAPSULE BY MOUTH FOUR TIMES A DAY FOR 10 DAYS TAKE ONE CAPSULE BY MOUTH FOUR TIMES A DAY FOR 10 DAYS SOLD: 07/25/2020 [facility] 8-2 mg 07/21/2020 12:00:00 AM EDT film 56 [address] TWO FILMS UNDER THE TONGUE EVERY DAY MAXIMUM DAILY DOSE = [address] TWO FILMS UNDER THE TONGUE EVERY DAY MAXIMUM DAILY DOSE = 2 FILMS SOLD: 07/21/2020 [facility] gabapentin 600 MG Oral Tablet Gabapentin 600 MG Oral T ablet (NEURONTIN) Gabapentin 600 MG Oral Tablet (NEURONTIN) 07/17/2020 12:00:00 AM EDT 600 mg Oral aborted Take 600 mg by mouth Three times daily [facility] 250 mg/5 mL 07/01/2020 12:00:00 AM EDT suspension for recons titution 200 TAKE 10MLS BY MOUTH TWICE A DAY FOR 7 DAYS - DISCARD ANY UNUSED PORTION TAKE 10MLS BY MOUTH TWICE A DAY FOR 7 DAYS - DISCARD ANY UNUSED PORTION SOLD: 07/01/2020 [facility] 10 mg 07/01/2020 12:00:00 AM EDT tablet 14 TAKE ONE TABLET BY MOUTH EVERY DAY FOR 14 DAYS TAKE ONE TABLET BY MOUTH EVERY DAY FOR 14 DAYS SOLD: [facility] 8-2 mg 06/24/2020 12:00:00 AM EDT film 56 PLACE TWO FILMS UNDER THE TONGUE EVERY DAY MAXIMUM DAILY DOSE = 2 PLACE TWO FILMS UNDER THE TONGUE EVERY D AY MAXIMUM DAILY DOSE = 2 SOLD: 06/24/2020 [facility] 20 mg 06/10/2020 12:00:00 AM EDT tablet 21 TAKE THREE TABLETS BY MOUTH EVERY DAY AT 6PM. FOR PSYCHSIS TAKE THREE TABLETS BY MOUTH EVERY DAY AT 6PM. FOR PSYCHSIS SOLD: 06/11/2020 [facility] 1 mg 06/09/2020 12:00:00 AM EDT tablet 14 TAKE ONE TABLET BY MOUTH TWICE A DAY FOR DYSTONIA TAKE ONE TABLET BY MOUTH TWICE A DAY FOR DYSTONIA SOLD : 06/11/2020 [facility] 8-2 mg 04/07/2020 12:00:00 AM EST film [...] {capsule_at_bedtime} active Doxepin HCl 25 MG eCW1 ([facility]) Doxepin Hydrochloride 25 MG Oral Capsule Doxepin HCl 25 MG D oxepin HCl 25 MG 03/09/2020 12:00:00 AM EST 1.0 {capsule_at_bedtime} active Doxepin HCl 25 MG eCW1 ([facility]) Doxepin Hydrochloride 25 MG Oral Capsule Doxepin HCl 25 MG D oxepin HCl 25 MG 03/09/2020 12:00:00 AM EST 1.0 {capsule_at_bedtime} active Doxepin HCl 25 MG eCW1 ([facility]) Doxepin Hydrochloride 25 MG Oral Capsule Doxepin HCl 25 MG D oxepin HCl 25 MG 03/09/2020 12:00:00 AM EST 1.0 {capsule_at_bedtime} active Doxepin HCl 25 MG eCW1 ([facility]) Doxepin Hydrochloride 25 MG Oral Capsule Doxepin HCl 25 MG D oxepin HCl 25 MG 03/09/2020 12:00:00 AM EST 1.0 {capsule_at_bedtime} active Doxepin HCl 25 MG eCW1 ([facility]) Doxepin Hydrochloride 25 MG Oral Capsule Doxepin HCl 25 MG D oxepin HCl 25 MG 03/09/2020 12:00:00 AM EST 1.0 {capsule_at_bedtime} active Doxepin HCl 25 MG eCW1 ([facility]) Doxepin Hydrochloride 25 MG Oral Capsule Doxepin HCl 25 MG D oxepin HCl 25 MG 03/09/2020 12:00:00 AM EST 1.0 {capsule_at_bedtime} active Doxepin HCl 25 MG eCW1 ([facility]) Doxepin Hydrochloride 25 MG Oral Capsule Doxepin HCl 25 MG D oxepin HCl 25 MG 03/09/2020 12:00:00 AM EST 1.0 {capsule_at_bedtime} active Doxepin HCl 25 MG eCW1 ([facility]) Doxepin Hydrochloride 25 MG Oral Capsule Doxepin HCl 25 MG D oxepin HCl 25 MG 03/09/2020 12:00:00 AM EST 1.0 {capsule_at_bedtime} active [facility] Doxepin Hydrochloride 25 MG Oral Capsule Doxepin HCl 25 MG D oxepin HCl 25 MG 03/09/2020 12:00:00 AM EST 1.0 {capsule_at_bedtime} active Doxepin HCl 25 MG [facility]CW1 [facility] Doxepin Hydrochloride 25 MG Oral Capsule Doxepin HCl 25 MG D oxepin HCl 25 MG 03/09/2020 12:00:00 AM EST 1.0 {capsule_at_bedtime} active Doxepin HCl 25 MG eCW1 ([facility]) Doxepin Hydrochloride 25 MG Oral Capsule Doxepin HCl 25 MG D oxepin HCl 25 MG 03/09/2020 12:00:00 AM EST 1.0 {capsule_at_bedtime} active Doxepin HCl 25 MG eCW1 ([facility]) Doxepin Hydrochloride 25 MG Oral Capsule Doxepin HCl 25 MG D oxepin HCl 25 MG 03/09/2020 12:00:00 AM EST 1.0 {capsule_at_bedtime} active Doxepin HCl 25 MG eCW1 ([facility]) Doxepin Hydrochloride 25 MG Oral Capsule Doxepin HCl 25 MG D oxepin HCl 25 MG 03/09/2020 12:00:00 AM EST 1.0 {capsule_at_bedtime} active Doxepin HCl 25 MG eCW1 ([facility]) Doxepin Hydrochloride 25 MG Oral Capsule Doxepin HCl 25 MG D oxepin HCl 25 MG 03/09/2020 12:00:00 AM EST 1.0 {capsule_at_bedtime} active Doxepin HCl 25 MG eCW1 ([facility]) Doxepin Hydrochloride 25 MG Oral Capsule Doxepin HCl 25 MG D oxepin HCl 25 MG 03/09/2020 12:00:00 AM EST 1.0 {capsule_at_bedtime} active Doxepin HCl 25 MG eCW1 ([facility]) Doxepin Hydrochloride 25 MG Oral Capsule Doxepin HCl 25 MG D oxepin HCl 25 MG 03/09/2020 12:00:00 AM EST 1.0 {capsule_at_bedtime} active Doxepin HCl 25 MG eCW1 ([facility]) Doxepin Hydrochloride 25 MG Oral Capsule Doxepin HCl 25 MG D oxepin HCl 25 MG 03/09/2020 12:00:00 AM EST 1.0 {capsule_at_bedtime} active Doxepin HCl 25 MG eCW1 ([facility]) Doxepin Hydrochloride 25 MG Oral Capsule Doxepin HCl 25 MG D oxepin HCl 25 MG 03/09/2020 12:00:00 AM EST 1.0 {capsule_at_bedtime} active Doxepin HCl 25 MG eCW1 ([facility]) Doxepin Hydrochloride 25 MG Oral Capsule Doxepin HCl 25 MG D oxepin HCl 25 MG 03/09/2020 12:00:00 AM EST 1.0 {capsule_at_bedtime} active Doxepin HCl 25 MG eCW1 ([facility]) Doxepin Hydrochloride 25 MG Oral Capsule Doxepin HCl 25 MG D oxepin HCl 25 MG 03/09/2020 12:00:00 AM EST 1.0 {capsule_at_bedtime} active Doxepin HCl 25 MG eCW1 ([facility]) Doxepin Hydrochloride 25 MG Oral Capsule Doxepin HCl 25 MG D oxepin HCl 25 MG 03/09/2020 12:00:00 AM EST 1.0 {capsule_at_bedtime} active Doxepin HCl 25 MG eCW1 ([facility]) Doxepin Hydrochloride 25 MG Oral Capsule Doxepin HCl 25 MG D oxepin HCl 25 MG 03/09/2020 12:00:00 AM EST 1.0 {capsule_at_bedtime} active Doxepin HCl 25 MG eCW1 ([facility]) Doxepin Hydrochloride 25 MG Oral Capsule Doxepin HCl 25 MG D oxepin HCl 25 MG 03/09/2020 12:00:00 AM EST 1.0 {capsule_at_bedtime} active Doxepin HCl 25 MG eCW1 ([facility]) 8-2 mg 03/03/2020 12:00:00 AM EST [...] Drugs Clonidine Hydrochloride 0.2 MG Oral Tablet cloNIDine H Cl 0.2 MG cloNIDine HCl 0.2 MG 12/24/2019 12:00:00 AM EDT 1.0 {tablet} activ e cloNIDine HCl 0.2 MG eCW1 ([facility]) Clonidine Hydrochloride 0.2 MG Oral Tablet Clonidine H Cl 0.2 MG Clonidine HCl 0.2 MG 12/24/2019 12:00:00 AM EDT 1.0 {tablet} activ e Clonidine HCl 0.2 MG eCW1 ([facility]) Clonidine Hydrochloride 0.2 MG Oral Tablet Clonidine H Cl 0.2 MG Clonidine HCl 0.2 MG 12/24/2019 12:00:00 AM EDT 1.0 {tablet} activ e Clonidine HCl 0.2 MG eCW1 ([facility]) Clonidine Hydrochloride 0.2 MG Oral Tablet Clonidine H Cl 0.2 MG Clonidine HCl 0.2 MG 12/24/2019 12:00:00 AM EDT 1.0 {tablet} activ e Clonidine HCl 0.2 MG eCW1 ([facility]) Clonidine Hydrochloride 0.2 MG Oral Tablet Clonidine H Cl 0.2 MG Clonidine HCl 0.2 MG 12/24/2019 12:00:00 AM EDT 1.0 {tablet} activ e Clonidine HCl 0.2 MG eCW1 ([facility]) Clonidine Hydrochloride 0.2 MG Oral Tablet Clonidine H Cl 0.2 MG Clonidine HCl 0.2 MG 12/24/2019 12:00:00 AM EDT 1.0 {tablet} activ e Clonidine HCl 0.2 MG eCW1 ([facility]) Clonidine Hydrochloride 0.2 MG Oral Tablet Clonidine H Cl 0.2 MG Clonidine HCl 0.2 MG 12/24/2019 12:00:00 AM EDT 1.0 {tablet} activ e Clonidine HCl 0.2 MG eCW1 ([facility]) Clonidine Hydrochloride 0.2 MG Oral Tablet Clonidine H Cl 0.2 MG Clonidine HCl 0.2 MG 12/24/2019 12:00:00 AM EDT 1.0 {tablet} suspe nded Clonidine HCl 0.2 MG eCW1 ([facility]) Clonidine Hydrochloride 0.2 MG Oral Tablet Clonidine H Cl 0.2 MG Clonidine HCl 0.2 MG 12/24/2019 12:00:00 AM EDT 1.0 {tablet} activ e Clonidine HCl 0.2 MG eCW1 ([facility]) Clonidine Hydrochloride 0.2 MG Oral Tablet Clonidine H Cl 0.2 MG Clonidine HCl 0.2 MG 12/24/2019 12:00:00 AM EDT 1.0 {tablet} activ e Clonidine HCl 0.2 MG eCW1 ([facility]) Clonidine Hydrochloride 0.2 MG Oral Tablet Clonidine H Cl 0.2 MG Clonidine HCl 0.2 MG 12/24/2019 12:00:00 AM EDT 1.0 {tablet} suspe nded Clonidine HCl 0.2 MG eCW1 ([facility]) Clonidine Hydrochloride 0.2 MG Oral Tablet Clonidine H Cl 0.2 MG Clonidine HCl 0.2 MG 12/24/2019 12:00:00 AM EDT 1.0 {tablet} activ e Clonidine HCl 0.2 MG eCW1 ([facility]) Clonidine Hydrochloride 0.2 MG Oral Tablet Clonidine H Cl 0.2 MG Clonidine HCl 0.2 MG 12/24/2019 12:00:00 AM EDT 1.0 {tablet} activ e Clonidine HCl 0.2 MG eCW1 ([facility]) Clonidine Hydrochloride 0.2 MG Oral Tablet Clonidine H Cl 0.2 MG Clonidine HCl 0.2 MG 12/24/2019 12:00:00 AM EDT 1.0 {tablet} activ e Clonidine HCl 0.2 MG eCW1 ([facility]) Clonidine Hydrochloride 0.2 MG Oral Tablet Clonidine H Cl 0.2 MG Clonidine HCl 0.2 MG 12/24/2019 12:00:00 AM EDT 1.0 {tablet} activ e Clonidine HCl 0.2 MG eCW1 ([facility]) Clonidine Hydrochloride 0.2 MG Oral Tablet Clonidine H Cl 0.2 MG Clonidine HCl 0.2 MG 12/24/2019 12:00:00 AM EDT 1.0 {tablet} activ e Clonidine HCl 0.2 MG eCW1 ([facility]) Clonidine Hydrochloride 0.2 MG Oral Tablet Clonidine H Cl 0.2 MG Clonidine HCl 0.2 MG 12/24/2019 12:00:00 AM EDT 1.0 {tablet} activ e Clonidine HCl 0.2 MG eCW1 ([facility]) Clonidine Hydrochloride 0.2 MG Oral Tablet Clonidine H Cl 0.2 MG Clonidine HCl 0.2 MG 12/24/2019 12:00:00 AM EDT 1.0 {tablet} activ e Clonidine HCl 0.2 MG eCW1 ([facility]) Clonidine Hydrochloride 0.2 MG Oral Tablet Clonidine H Cl 0.2 MG Clonidine HCl 0.2 MG 12/24/2019 12:00:00 AM EDT 1.0 {tablet} activ e Clonidine HCl 0.2 MG eCW1 ([facility]) Clonidine Hydrochloride 0.2 MG Oral Tablet Clonidine H Cl 0.2 MG Clonidine HCl 0.2 MG 12/24/2019 12:00:00 AM EDT 1.0 {tablet} activ e Clonidine HCl 0.2 MG eCW1 ([facility]imena) Clonidine Hydrochloride 0.2 MG Oral Tablet Clonidine H Cl 0.2 MG Clonidine HCl 0.2 MG 12/24/2019 12:00:00 AM EDT 1.0 {tablet} activ e Clonidine HCl 0.2 MG eCW1 ([facility]ena) Clonidine Hydrochloride 0.2 MG Oral Tablet Clonidine H Cl 0.2 MG Clonidine HCl 0.2 MG 12/24/2019 12:00:00 AM EDT 1.0 {tablet} activ e Clonidine HCl 0.2 MG eCW1 ([facility] jimena) Clonidine Hydrochloride 0.2 MG Oral Tablet Clonidine H Cl 0.2 MG Clonidine HCl 0.2 MG 12/24/2019 12:00:00 AM EDT 1.0 {tablet} activ e Clonidine HCl 0.2 MG eCW1 ([facility] jimena) Clonidine Hydrochloride 0.2 MG Oral Tablet Clonidine H Cl 0.2 MG Clonidine HCl 0.2 MG 12/24/2019 12:00:00 AM EDT 1.0 {tablet} suspe nded Clonidine HCl 0.2 MG eCW1 ([facility] jimena) Clonidine Hydrochloride 0.2 MG Oral Tablet Clonidine H Cl 0.2 MG Clonidine HCl 0.2 MG 12/24/2019 12:00:00 AM EDT 1.0 {tablet} activ e Clonidine HCl 0.2 MG eCW1 ([facility] jimena) Clonidine Hydrochloride 0.2 MG Oral Tablet Clonidine H Cl 0.2 MG Clonidine HCl 0.2 MG 12/24/2019 12:00:00 AM EDT 1.0 {tablet} activ e Clonidine HCl 0.2 MG eCW1 ([facility] jimena) Clonidine Hydrochloride 0.2 MG Oral Tablet Clonidine H Cl 0.2 MG Clonidine HCl 0.2 MG 12/24/2019 12:00:00 AM EDT 1.0 {tablet} activ e Clonidine HCl 0.2 MG eCW1 ([facility] jimena) Clonidine Hydrochloride 0.2 MG Oral Tablet Clonidine H Cl 0.2 MG Clonidine HCl 0.2 MG 12/24/2019 12:00:00 AM EDT 1.0 {tablet} activ e Clonidine HCl 0.2 MG eCW1 ([facility] jimena) Clonidine Hydrochloride 0.2 MG Oral Tablet Clonidine H Cl 0.2 MG Clonidine HCl 0.2 MG 12/24/2019 12:00:00 AM EDT 1.0 {tablet} activ e Clonidine HCl 0.2 MG eCW1 ([facility] jimena) Clonidine Hydrochloride 0.2 MG Oral Tablet Clonidine H Cl 0.2 MG Clonidine HCl 0.2 MG 12/24/2019 12:00:00 AM EDT 1.0 {tablet} activ e Clonidine HCl 0.2 MG eCW1 ([facility] jimena) Clonidine Hydrochloride 0.2 MG Oral Tablet Clonidine H Cl 0.2 MG Clonidine HCl 0.2 MG 12/24/2019 12:00:00 AM EDT 1.0 {tablet} activ e Clonidine HCl 0.2 MG eCW1 ([facility] jimena) Clonidine Hydrochloride 0.2 MG Oral Tablet Clonidine H Cl 0.2 MG Clonidine HCl 0.2 MG 12/24/2019 12:00:00 AM EDT 1.0 {tablet} activ e Clonidine HCl 0.2 MG eCW1 ([facility] jimena) Clonidine Hydrochloride 0.2 MG Oral Tablet Clonidine H Cl 0.2 MG Clonidine HCl 0.2 MG 12/24/2019 12:00:00 AM EDT 1.0 {tablet} activ e Clonidine HCl 0.2 MG eCW1 ([facility] jimena) Clonidine Hydrochloride 0.2 MG Oral Tablet cloNIDine H Cl 0.2 MG cloNIDine HCl 0.2 MG 12/24/2019 12:00:00 AM EDT 1.0 {tablet} activ e cloNIDine HCl 0.2 MG eCW1 ([facility] jimena) Clonidine Hydrochloride 0.2 MG Oral Tablet Clonidine H Cl 0.2 MG Clonidine HCl 0.2 MG 12/24/2019 12:00:00 AM EDT 1.0 {tablet} activ e Clonidine HCl 0.2 MG eCW1 ([facility] jimena) 300 mg 12/13/2019 [...] TWICE A DAY SOLD: 12/22/2019 [facility] 20 mg 12/10/2019 12:00:00 AM EDT tablet 30 TAKE ONE TABLET BY MOUTH EVERY DAY FOR MOOD TAKE ONE TABLET BY MOUTH EVERY DAY FOR MOOD SOLD: 12/22/2019 [facility] 2 mg 12/10/2019 12:00:00 AM EDT gum 110 CHEW 1 PIECE EVERY 2 HOUR NEEDED FOR NICOTINE CRAVINGS CHEW 1 PIECE EVERY 2 HOUR NEEDED FOR NICOTINE CRAVI NGS SOLD: 12/22/2019 [facility] 50 mg 11/21/2019 [...] FOR THOUGHTS SOLD : 11/18/2019 [facility] 20 mg 11/05/2019 12:00:00 AM EDT tablet 30 TAKE ONE TABLET BY MOUTH EVERY DAY TAKE ONE TABLET BY MOUTH EVERY DAY SOLD: 11/06/2019 [facility] 0.5 mg 11/05/2019 12:00:00 AM EDT tablet 7 TAKE ONE TABLET BY MOUTH AT BEDTIME FOR 7 DAYS MAXIMUM DAILY DOSE = 1 TAKE ONE TABLET BY MOUTH AT BEDTIME FOR 7 DAYS MAXIMUM DAILY DOSE = 1 SOLD: 11/06/2019 [facility] Clonazepam 0.5 MG Oral Tablet Clonazepam 0.5 MG 11/04/2019 12:00:00 AM EDT 1.0 {tablet_at_bedtime} active Clonazepam 0.5 MG eCW1 ([facility]) lisdexamfetamine dimesylate 50 MG Oral Capsule [Vyvans e] Vyvanse 50 MG Vyvanse 50 MG 11/04/2019 12:00:00 AM EDT 1.0 {capsule_in_the_morning} active Vyvanse 50 MG eCW1 ([facility]) Citalopram 20 MG Oral Tablet [Celexa] Celexa 20 MG Celexa 20 MG 11/04/2019 12:00:00 AM EDT 1.0 {tablet} active Ce leise 20 MG eCW1 ([facility]) Citalopram 20 MG Oral Tablet [Celexa] Celexa 20 MG Celexa 20 MG 11/04/2019 12:00:00 AM EDT 1.0 {tablet} active Ce elise 20 MG eCW1 ([facility]) lisdexamfetamine dimesylate 50 MG Oral Capsule [Vyvans e] Vyvanse 50 MG Vyvanse 50 MG 11/04/2019 12:00:00 AM EDT 1.0 {capsule_in_the_morning} active Vyvanse 50 MG eCW1 ([facility]) Clonazepam 0.5 MG Oral Tablet Clonazepam 0.5 MG 11/04/2019 12:00:00 AM EDT 1.0 {tablet_at_bedtime} active Clonazepam 0.5 MG eCW1 ([facility]) 2 mg 11/04/2019 12:00:00 AM EDT tablet 90 TAKE 1 TABLET BY MOUTH IN THE MORNING AND 2 TABLETS BY MOUTH IN THE EVENING TAKE 1 TABLET BY MOUTH IN THE MORNING AND 2 TABLETS BY MOUTH IN THE EVENING SOLD: 11/06/2019 [facility] Citalopram 20 MG Oral Tablet [Celexa] Celexa 20 MG Celexa 20 MG 11/04/2019 12:00:00 AM EDT 1.0 {tablet} active Ce elise 20 MG eCW1 ([facility]) 75 mg 11/02/2019 12:00:00 AM EDT tablet 30 TAKE ONE TABLET BY MOUTH AT BEDTIME TAKE ONE TABLET BY MOUTH AT BEDTIME SOLD: 11/06/2019 [facility] 400 mg 11/02/2019 12:00:00 AM EDT capsule 90 TAKE ONE CAPSULE BY MOUTH THREE TIMES A DAY NEEDED TAKE ONE CAPSULE BY MOUTH THREE TIMES A DAY NEEDED SOLD: 11/06/2019 [facility] 1 gram 10/31/2019 12:00:00 AM EDT tablet 120 TAKE ONE TABLET BY MOUTH FOUR TIMES A DAY TAKE ONE TABLET BY MOUTH FOUR TIMES A DAY SOLD: 10/31/2019 [facility] 20 mg 10/31/2019 12:00:00 AM EDT capsule,delayed release (DR/EC) 90 TAKE ONE CAPSULE BY MOUTH 30 MINUTES BEFORE MORNING MEAL TAKE ONE CAPSULE BY MOUTH 30 MINUTES BEFORE MORNING MEAL SOLD: 10/31/2019 [facility] 600 mg 10/31/2019 12:00:00 AM [...] LLERGY SYMPTOMS SOLD: 10/31/2019 [facility] 20 mg 10/31/2019 12:00:00 AM EDT tablet 15 TAKE THREE TABLETS BY MOUTH EVERY DAY TAKE THREE TABLETS BY MOUTH EVERY DAY SOLD: 10/31/2019 [facility] 50 mg 10/31/2019 12:00:00 AM EDT tablet 9 TAKE ONE TABLET BY MOUTH ONCE DAILY WHEN NEEDED FOR MIGRAINE TAKE ONE TABLET BY MOUTH ONCE DAILY WHEN NEEDED FOR MIGRAINE SOLD: 10/31/2019 [facility] 8-2 mg 10/28/2019 12:00:00 AM EDT film [address] PLACE TWO FILMS UNDER THE TONGUE EVERY DAY MAXIMUM DAILY DOSE = 2 PLACE TWO FILMS UNDER THE TONGUE EVERY D AY MAXIMUM DAILY DOSE = 2 SOLD: 10/28/2019 [facility] 100 mg 10/22/2019 12:00:00 AM EDT capsule 60 TAKE TWO CAPSULES BY MOUTH EVERY DAY TAKE TWO CAPSULES BY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 (LORAZEPAM) Ativan IM 2 mg (HIGH ALERT15:16 11/03/2020 Dose: 2 mg IM MEDICATION)Sayda Davis RN Name Value Range Interpretation Code Description Data [place] rce(s) Supporting Document(s) ID Date Data Source [id number] 11/03/2020 11:35:00 AM EDT [facility] 1 General Instructions [facility] Emergency Department [address] [place] [address] Phone #: ext- [phone] 11/03/2020 11:35 Patient: BRUNA LEE Sex: F : 1985 Age: 35yDiarrhea (resolved).Chronic generalized abdominal pain of undetermined cause.Anxiety reaction.INSTRUCTIONSDrink plenty of fluids. Avoid alcohol and NSAIDS. NSAIDS include aspirin, ibuprofen (Advil) and naproxen(Aleve). Avoid fatty, fried/greasy, lactose-containing (such as milk, [...] fluidsdown, blood in vomitus, blood in diarrhea, fainting, lightheadedness or vaginal bleeding.Your Current Medications: Your current home medications have been reviewed.CONTINUE TAKING THE FOLLOWING MEDICATIONS:chlorproMAZINE HCl Oral : Tablet 100 mg, 2x a day.Cogentin*.Gabapentin Oral : Tablet 600 mg.Keppra Oral : Tablet 1000 mg.Follow-up:Return to the emergency department as needed. Follow up with your healthcare provider in five days ifnot better. Call for an appointment. Reason for referral: evaluation and treatment. Summary of c areprovided to patient via paper.Understanding of the discharge instructions verbalized by patient. Expected course of illness, dischargeinstructions, activity level, diet, follow-up appointment and risks and benefits of treatment reviewed withpatient and understanding verbalized. Agrees to plan of care. ADDITIONAL INFORMATIONViral Diarrhea (Adult) 2 General Instructions [facility] Emergency Department [address] [place] [address] Phone #: qap- [phone] 11/03/2020 11:35 Patient: BRUNA LEE Sex: F : 1985 Age: 35yDiarrhea caused by a virus is often called viral gastroenteritis. Many people call it the "stomach flu,"but it has nothing to do with influenza. The virus that causes diarrhea affects the stomach andintestinal tract and usually lasts from 2 to 7 days. Diarrhea is the passing of loose, watery stools 3 ormore times a day.SymptomsAlong with diarrhea, you may have these symptoms: Abdominal pain and cramping Nausea and vomiting Loss of bowel control Fever and chills Bloody stoolsThe danger from repeated diarrhea is dehydration. Dehydration is the loss of too much water andother fluids from the body without taking in enough to replace what is lost. 3 General Instructions [facility] Emergency Department [address] [place] [address] Phone #: ext- [phone] 11/03/2020 11:35 [id number] Sex[facility] F : 1985 Age: 35yAntibiotics are not effective in this illness, but there are a number of things you can do at home thatwill help.Home careFollow these home care measures: If symptoms are severe, rest at home for the next 24 hours or until you are feeling better. Wash your hands with soap and water or alcohol-based tax technician to prevent the spread of infection. Wash your hands after touching anyone who is sick. Wash your hands after using the toilet and before meals. Clean the toilet after each use.Food preparation: People with diarrhea should not prepare food for others. When preparing foods, wash your hands after touching anyone who is sick. Wash your hands after using cutting boards, countertops, and knives that have been in contact with raw food. Keep uncooked meats away from cooked and [id number] foods.Medicines: You may use acetaminophen or NSAIDS such as ibuprofen or naproxen to control fever unless another medicine was prescribed. If you have chronic liver or kidney disease or ever had a stomach ulcer or gastrointestinal bleeding, talk with your healthcare provider before using these medicines. Aspirin should never be used in anyone under 18 years of age who is ill with a fever. It may cause severe liver damage. Don't use NSAID medicines if you are al ready taking one for another condition (like arthritis) or are on aspirin (such as for heart disease or after a stroke). Anti-diarrhea medicine should be taken for this condition only if advised by your healthcare provider. Sometimes anti-diarrhea medicine can make your condition worse. If you have bloody diarrhea or fever, check with your healthcare provider before taking antidiarrheals.Diet: Water and clear liquids are important so you don't get dehydrated. Drink small amounts at a time, don't guzzle it down. If you are very dehydrated, sports drinks aren't a good choice. They have too much sugar and not enough electrolytes. In this case, commercially available products called oral rehydration solutions are best. Caffeine, tobacco, and alcohol can make the diarrhea, cramping, and pain worse. 4 General Instructions [facility] Emergency Department [address] [place] [address] Phone #: ext- [phone] 11/03/2020 11:35 Patient: BRUNA LEE Sex: F : 1985 Age: 35y Don't force yourself to eat, especially if you have cramping, vomiting, or diarrhea. Don't eat large amounts at a time, even if you are hungry. It may make you feel worse. If you eat, avoid fatty, greasy, spicy, or fried foods. No dairy products, as they can make diarrhea worse.During the first 24 Hours (the first full day) follow the diet below: Beverages: Water, clear liquids, soft drinks without caffeine; caroline parth, mineral water (plain or flavored), decaffeinated tea and coffee. Soups: Clear broth, consomm and bouillon Desserts: Plain gelatin, popsicles and fruit juice barsDuring the next 24 hours (the second day) you may add the following to the above if you haveimproved: Hot cereal, plain toast, bread, rolls, crackers Plain noodles, rice, mashed potatoes, chicken noodle or rice soup Unsweetened canned fruit like applesauce and bananas (avoid pineapple and citrus) Limit fat intake to less than 15 grams per day by avoiding margarine, butter, oils, mayonnaise, sauces, gravies, fried foods, peanut butter, meat, poultry and fish. Limit fiber; avoid raw or cooked vegetables, fresh fruits (except bananas) and bran cereals. Limit caffeine and chocolate. No spices or seasonings except salt.During the next 24 hours Gradually resume a normal diet, as you feel better and your symptoms improve. If at any time the diarrhea or cramping gets worse, go back to the simpler diet (above) or to clear liquids.Follow-up careFollow up with your healthcare provider, or as advised. Call if you are not improving within 24 hoursor if the diarrhea lasts more than one week. This is especially true if you are in a high-risk group. Forexample, if you are very elderly, have a weak immune system (from cancer treatment for example), oryou have inflammatory bowel disease (Crohn's or colitis).If a stool (diarrhea) s ample was taken, you may call in 2 days (or as directed) for the results.When to seek medical advice 5 General Instructions [facility] Emergency Department [address] [place] [address] Phone #: ext- [phone] 11/03/2020 11:35 Patient: BRUNA LEE Sex: F : 1985 Age: 35yCall your healthcare provider right away if any of the f ollowing occur: Increasing abdominal pain or constant lower right abdominal pain Continued vomiting (unable to keep liquids down) Frequent diarrhea (more than 5 times a day) Blood in vomit or stool (black or red color) Reduced oral intake Dark urine, reduced urine output Weakness, dizziness Drowsiness Fever of 100.4F (38C) oral or higher, or as directed by your healthcare provider [facility] 91[facility] 91 if any of the following occur: Trouble breathing Confused Severe drowsiness or trouble awakening Fainting or loss of consciousness Rapid heart rate Seizure Stiff neck [employer]. [address] [place] [id number]. All rights reserved. This information is not intended as asubstitute for professional medical care. Always follow your healthcare professional's instructions.Unknown Causes of Abdominal Pain (Female) 6 General Instructions [facility] Emergency Department [address] [place] [address] Phone #: ext- [phone] 11/03/2020 11:35 Patient: BRUNA LEE Sex: F : 1985 Age: 35yThe exact cause of your belly (abdominal) pain is not clear. This does not mean that this is somethingto worry about. Everyone likes to know the exact cause of the problem. But sometimes with bellypain, there is no clear- cut cause, and this could be a good thing. The good news is that yoursymptoms can be treated, and you will feel better.Your condition does not seem serious now. But sometimes the signs of a serious problem may takemore time to appear. For this reason, it is important for you to watch for any new symptoms,problems, or worsening of your condition.Over the next few days, the abdominal pain may come and go. Or it may be constant. Other commonsymptoms can include nausea and vomiting. Sometimes it can be difficult to tell if you feel nauseous.You may just feel bad and not connect that feeling to nausea. Constipation, diarrhea, and a fever maygo along with the pain.The pain may continue even if treated correctly over the following days. Depending on how things go,sometimes the cause can become clear and may need more or different treatment. Additionalevaluations, medicines, or tests may also be needed.Home careYour healthcare provider may prescribe medicine for pain, symptoms, or an infection. Follow thehealthcare provider's instructions for taking these medicines. 7 General Instructions [facility] Emergency Department [address] [place] [address] Phone #: ext- [phone] 11/03/2020 11:35 Patient: BRUNA LEE Sex: F : 1985 Age: 35yGeneral care Rest as much as you can until your next exam. No strenuous activities. Try to find positions that ease discomfort. A small pillow placed on the abdomen may help relieve pain. Something warm on your abdomen (such as a heating pad) may help, but be careful not to burn yourself.Diet Don't force yourself to eat, especially if having cramps, vomiting, or diarrhea. Water is important so you don't get dehydrated. Soup may also be good. Sports drinks may also help, especially if they are not too acidic. Don't drink sugary drinks as this can make things worse. Take liquids in small amounts. Don't guzzle them. Caffeine sometimes makes the pain and cramping worse. Don't take dairy products if you have vomiting or diarrhea. Don't e at large amounts at a time. Wait a few minutes between bites. Eat a diet low in fiber (called a low-residue diet). Foods allowed include refined breads, white rice, fruit and vegetable juices without pulp, tender meats. These foods will pass more easily through the intestine. Don't have whole-grain foods, whole fruits and vegetables, meats, seeds and nuts, fried or fatty foods, dairy, alcohol and spicy foods until your symptoms go away.Follow-up careFollow up with your healthcare provider, or as advised, if your pain does not begin to improve in thenext 24 hours.Call [phone] if any of these occur: Trouble breathing Confusion Fainting or loss of consciousness Rapid heart rate 8 General Instructions [facility] Emergency Department [address] [place] [address] Phone #: ext- [phone] 11/03/2020 11:35 Patient: BRUNA LEE Sex: F : 1985 Age: 35y SeizureWhen to seek medical adviceCall your healthcare provider right away if any of these occur: Pain gets worse or moves to the right lower abdomen New or worsening vomiting or diarrhea Swelling of the abdomen Unable to pass stool for more than 3 days Fever of 100.4F (38C) or higher, or as directed by your healthcare provider. Blood in vomit or bowel movements (dark red or black color) Yellow color of eyes and skin (jaundice) Weakness, dizziness Chest, arm, back, neck, or jaw pain Unexpected vaginal bleeding or missed period Can't keep down liquids or water and you are getting dehydrated [id number] [employer]. [address] [place] [address]. All rights reserved. This information is not intended as asubstitute for professional medical care. Always follow your healthcare professional's instructions.Anxiety ReactionAnxiety is the feeling we all get [...] reaction, you may feel: Helpless Nervous Depressed 9 General Instructions [facility] Emergency Department [address] [place] [address] Phone #: ext- [phone] 11/03/2020 11:35 --- Patient: BRUNA LEE Sex: F : 1985 Age: 35y IrritableYour body may show signs of anxiety in many ways. You may experience: Dry mouth Shakiness Dizziness Weakness Trouble breathing Breathing fast (hyperventilating) Chest pressure Sweating Headache Nausea Diarrhea Tiredness Inability to sleep Sexual problemsHome care Try to locate the [...] Overload: feeling that you have too many responsibilities and can't take care of all of [...] of your stress. (Avoid hassles, limit the 10 General Instructions [facility] Emergency Department [address] [place] [address] Phone #: ext- [phone] 11/03/2020 11:35 Patient: BRUNA LEE Sex: F : 1985 Age: 35y amount of change that happens in your [...] counseling andtemporary medicine to help you manage stress.Call [phone] if any of these happen: Trouble breathing Confusion Drowsiness or trouble wakening Fainting or loss of consciousness Rapid heart rate Seizure New chest pain that becomes more severe, lasts longer, or spreads into your shoulder, arm, neck, jaw, or backWhen to seek medical advice 11 General Instructions [facility] Emergency Department [address] [place] [address] Phone #: ext- [phone] 11/03/2020 11:35 Patient: BRUNA LEE Sex: F : 1985 Age: 35yCall your healthcare provider right away if any of these happen: Your symptoms get worse Severe headache not relieved by rest and mild pain reliever [employer]. [address] [place] [address]. All rights reserved. This information is not intended as asubstitute for professional medical care. Always follow your healthcare professional's instructions. You have been given the following additional information: Diarrhea, Viral (Adult) Abdominal Pain, Unknown Cause, (Female) Anxiety Reaction(Electronically signed by Evonne Hagen M.D. 11/03/2020 18:01) Name Value Range Interpretation Code Description Data [place] rce(s) Supporting Document(s) ID Date Data Source [id number] 11/03/2020 11:35:00 AM EDT [facility] 1 Clinical Report - Nurses [facility] Emergency Department [address] [place] [address] Phone #: ext- [phone] 11/03/2020 11:35 Patient: BRUNA LEE Sex: F : 1985 Age: 35yTRIAGEArrived by EMS. Historian: patient.Acuity: LEVEL 3.Chief Complaint: ABDOMINAL PAIN and DIARRHEA.Onset. (6 months ago). ( pt states she was supposed to go to methadone appointment today but herabdomen is been bothering for quite some time, she reports abdominal pain, n/v/d, sore throat and multipleissues).Treatment BASE REMOVER:Took Tylenol. (1030).EMS Treatment BASE REMOVER:EMS treatment verbally communicated and report reviewed. See report.SEPSIS SCREEN: SIRS SCREEN NEGATIVE. SEPSIS SCREEN NEGATIVE. No suspected or confirmedsigns of infection present.SHE COMA SCORE: 15- eyes open- spontaneous (4); best verbal response- oriented (5); bestmotor response- obeys commands (6). --11:57 11/03/20 Genaro Quiroz RN11:51 11/03/20. BP: 125/79. MAP: 94. HR: 72. RR: 16. O2 saturation: 95%. Temp: 99.3 F. Pain level now:12/05. --11:57 11/03/20 Genaro Quiroz RN.Weight: 81.6 kg stated. Height/Length: 61 inches Per Patient. BMI: 34. --11:51 11/03/20 Genaro Quiroz RN.MedicationschlorproMAZINE HCl Oral (Tablet 100 mg), 2x a day. Cogentin. Gabapentin Oral (Tablet 600 mg). Keppra Oral (Tablet 1000 mg). --11:54 11/03/20 Genaro Quiroz RN.AllergiesAmoxicillin.Bactrim.Certain antipsycotics.Methamphetamine HCl. --11:54 11/03/20 Genaro Quiroz, RNPenicillins.Sulfur. --11:54 11/03/20 Genaro Qiuroz RN. 2 Clinical Report - Nurses [facility] Emergency Department [address] [place] [address] Phone #: ext- [phone] 11/03/2020 11:35 Patient: BRUNA LEE Sex: F : 1985 Age: 35y History PAST MEDICAL HX: Immunizations: up-to-date. Last normal menstrual period- 2 weeks ago. SOCIAL HX: Light tobacco smoker (cigarette)- less than 1/2 a pack per day. Drug use. (3 weeks since used meth/goran). No alcohol use. No recent travel. No known contact with a sick individual. She was offered HIV testing but declined and hepatitis C testing but declined. She has not traveled outside the [place] Infectious disease exposure: No infectious disease exposure. The patient was not exposed to Coronavirus. SELF HARM ASSESSMENT: Self harm assessment was [...] noticed less interest or pleasure in doing things?", "Are you here because you tried to hurt yourself?" and "Have you ever tried to hurt yourself before today?". ABUSE ASSESSMENT: No report of abuse. NUTRITIONAL RISK ASSESSMENT: The nutritional risk assessment revealed no deficiencies. FUNCTIONAL ASSESSMENT: Functional assessment: no impairments noted. LEARNING NEEDS ASSESSMENT: The learning needs assessment revealed no barriers. FALL RISK ASSESSMENT: Fall risk assessment completed. No risk factors identified. SKIN INTEGRITY ASSESSMENT: Skin integrity risk assessment completed. No skin integrity risk identified. --11:57 11/03/20 Genaro Quiroz RN. Interventions Identification band on patient. To waiting room. --11:57 11/03/20 Genaro Quiroz RN To treatment room. --13:59 11/03/20 Genaro Quiroz RN.PHYSICAL [id number]:02 11/03/20. To room via wheelchair.GENERAL / NEURO / PSYCH: Alert. Oriented X 4. Appears in pain.HEENT: Mucous membranes are pink.RESPIRATORY: Respirations not labored. Breath sounds within normal limits.CVS: Capillary refill less than 2 seconds.GI / : The patient has diarrhea. It has been watery. Abdomen soft. Abdominal tenderness in thesuprapubic area. Bowel sounds within normal limits.SKIN: Skin is warm and dry. --14:08 11/03/20 Sayda Davis RN. 3 Clinical Report - Nurses [facility] Emergency Department [address] [place] [address] Phone #: ext- [phone] 11/03/2020 11:35 Patient: BRUNA LEE [facility]#: [id number] Sex: F : 1985 Age: 35yNURSING PROGRESS NOTES13:57 11/03/20. Patient gowned. Head of bed elevated. Two patient identifiers checked. Call lightplaced in reach. Side rails up x 1. Bed placed in lowest position. Brakes of bed on. Patient ready forevaluation- ED physician notified. --14:08 11/03/20 Sayda Davis RN 14:58 11/03/2020 Three (3) unsuccessful IV access attempts including the right hand and left forearm and wrist. Applied bandage. --15:27 11/03/20 Sayda Davis RN 15:16 11/03/2020 Ativan (LORazepam) IM 2 mg given. Given in the left deltoid. Allergies verified and confirmed 5 rights. Information reviewed with patient including reason for taking this medication, signs of allergic reaction, precautions and sedative warning. Verbalizes understanding. --15:24 11/03/20 Sayda Davis RN.DISPOSITION / DISCHARGE 15:10 11/03/20. BP: 123/76. HR: 78. RR: 16. O2 saturation: 98%. Temp: 98.7 F. Pain level now 6/10. --15:10 11/03/[address] [facility] [place] [id number] 15:25 11/03/20. Condition at departure: stable. No learning barriers present. Discharge instructions provided and reviewed with the patient. Patient verbalized understanding. Written instructions provided in Guatemalan. The patient was discharged home. She left ambulatory and via private vehicle. Patient driving. --15:25 11/03/20 Sayda Davis RN.Locked/Released at 11/03/2020 15:29 by Sayda Davis RN Name Value Range Interpretation Code Description Data [place] rce(s) Supporting Document(s) ID Date Data Source [id number] 0001 11/03/2020 11:35:00 AM EDT [facility] 1 Clinical Report - Physicians/Mid Levels [facility] Emergency Department [address] [place] [address] Phone #: ext- [phone] 11/03/2020 11:35 Patient: BRUNA LEE Sex: F : 1985 Age: 35y Time Seen: 13:27 11/03/2020; initial patient contact. Arrived- By ambulance. Historian- patient. Disposition decision: 15:09 11/03/2020.HISTORY OF PRESENT ILLNESS Chief Complaint: DIARRHEA. ABDOMINAL CRAMPS. No recent travel. She has had mild nausea and diarrhea and mild, crampy, intermittent abdominal pain. The pain is associated with diarrhea. No vomiting, black stools, bloody stools, constipation or flank pain. No history of possible bad food exposure, known contact with a sick individual or change in routine. Has not recently been camping or on antibiotics. This started yesterday and is now gone. It has been intermittent. The illness is described as mild. (pt has appt at Methadone clinic today). Similar symptoms previously. Patient has had similar symptoms many times. ( pt well known to us for chronic complaints, especially abdominal related and psychiatric and substance abuse). Recent medical care: The patient was seen recently at this facility.REVIEW OF SYSTEMSNo fever, muscle aches, difficulty with urination, dark urine or headache. No dizziness, sore throat, cough,chest pain or difficulty breathing. No excessive urination, skin rash, jaundice, back pain or faintingepisodes. No blurred vision. All other systems reviewed and are negative.PAST HISTORYSee nurses notes. Problems: Irritable bowel syndrome (disorder). Chronic abdominal pain. Polysubstance abuse. PTSD. Peptic Ulcer Disease. Substance Abuse. Schizophrenia. Seizure Disorder. Anxiety Reaction. Depression. ADHD - Attention Deficit Hyperactivity Disorder. Gastroesophageal Reflux Disease. 2 Clinical Report - Physicians/Mid Levels [facility] Emergency Department [address] [place] [address] Phone #: ext- [phone] 11/03/2020 11:35 [id number] 1985 Age: 35y Additional Surgeries: Hernia Repair. (Umbilical ). Medications: chlorproMAZINE HCl Oral (Tablet 100 mg), 2x a day. Cogentin. Gabapentin Oral (Tablet 600 mg). Keppra Oral (Tablet 1000 mg). Allergies: Amoxicillin. Bactrim. Certain antipsycotics. Methamphetamine HCl. Penicillins. Sulfur.SOCIAL HISTORYLight tobacco smoker- less than 1/2 a pack per day. Occasional drug use: methamphetamines. Noalcohol use.ADDITIONAL NOTESThe nursing notes have been reviewed with agreement regarding the chief complaint, HPI, ROS, PMH andpatient medications and allergies.PHYSICAL EXAMVital Signs: 11/03/2020 11:51 BP: 125/79. MAP: 94. HR: 72. RR: 16. O2 saturation: 95%. Temp: 99.3 F.Pain level now: 1010. Have been reviewed. Oxygen saturation normal.Appearance: Alert. Oriented X3. No acute distress.Eyes: Pupils equal, round and reactive to light. Eyes normal inspection.ENT: Nose normal. Pharynx normal.Neck: Normal inspection. Neck supple.CVS: Normal heart rate and rhythm. Heart sounds normal. Pulses normal.Respiratory: No respiratory distress. Painless inspiration. Breath sounds normal.Abdomen: Soft and nontender. Bowel sounds normal. No organomegaly. No mass. Femoral pulsesequal.Back: Normal inspection. No CVA tenderness.Skin: Skin warm and dry. Normal skin color. No rash. Normal skin turgor.Extremities: Extremities exhibit normal ROM. No lower extremity edema.Neuro: Oriented X 3. No motor deficit. No sensory deficit.LABS, X-RAYS, AND EKGLaboratory Tests: Laboratory tests have been ordered, with results reviewed and considered in themedical decision making process. CBC w Diff: (JENN: 11/03/2020 14:18) ( MsgRcvd 11/03/2020 14:28) Final results 3 Clinical Report - Physicians/Mid Levels [facility] Emergency Department [address] [place] [address] Phone #: ext- [phone] 11/03/2020 11:35 Patient: BRUNA LEE Sex: F : 1985 Age: 35[address] Te [address] Result Flag Units (Reference) CBC W/AUTOMATED DIFF COMPLETE BLOOD COUNT WBC 6.8 10/uL (4.2 - 11.0) RBC 3.89 L 10/uL (4.20 - 5.40) HEMOGLOBIN 11.6 L g/dL (12.0 - 16.0) HEMATOCRIT 35.3 L % (37.0 - 47.0) MCV 90.7 fL (81.0 - 101) MCH 29.8 pg (27.0 - 34.0) MCHC 32.9 g/dL (31.0 - 36.0) RDW 14.0 % (11.5 - 14.5) PLATELETS 331 10/uL (150 - 450) MPV 9.7 fL (7.4 - 10.4) NEUT 69.7 % (37.0 - 80.0) LYMPH 18.4 L % (25.0 - 40.0) MONO 8.5 H % (3.0 - 8.0) EOS 1.8 % (0.0 - 7.0) BASO 0.9 % (0.0 - 2.5) %IG 0.7 H % (0.0 - 0.0) %NRBC 0.0 % (0.0 - 0.0) #NEUT 4.74 10/uL (2.00 - 6.90) #LYMPH 1.25 10/uL (0.60 - 3.40) #MONO 0.58 10/uL (0.00 - 0.90) #EOS 0.12 10/uL (0.00 - 0.70) #BASO 0.06 10/uL (0.00 - 0.20) #IG 0.05 10/uL (0.00 - 0.10) #NRBC 0.00 10/uL (0.00 - 0.00) MANUAL DIFF NOT INDICATED RBC MORPH NOT INDICATEDCMP: (JENN: 11/03/2020 14:18) ( MsgRcvd 11/03/2020 14:56) Final results Test Result Flag Units (Reference) COMPREHENSIVE METABOLIC PANEL COMPREHENSIVE METABOLIC PANEL SODIUM 136 mEq/L (134 - 153) POTASSIUM 4.2 mEq/L (3.6 - 5.0) CHLORIDE 100 mEq/L (98 - 107) CO2 25 MEQ/L (22 - 30) GLUCOSE 140 H MG/DL (70 - 99) BUN 12 MG/DL (7 - 21)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 pack per day. Drug use: heroin. Recently used drugsdays ago. No alcohol use. She was offered HIV testing, accepted and oral consent was obtained. Shewas offered hepatitis C testing, accepted and oral consent was obtained. She has not traveled outside the.[place].Infectious disease exposure: The patient was not exposed to VRE, CRE or Coronavirus. Patient is a knowncarrier of MRSA. (pt had cdiff earlier this year).SELF HARM ASSESSMENT: Self harm assessment was performed. The patient answered "no" to thequestion(s) "Have you recently felt down, depressed, or hopeless?", "Do you have thoughts of harming orkilling yourself?", "Do you have a plan for harming or killing yourself?", "Have you recently had thoughtsabout harming or killing others?", "Do you have any dangerous items in your possession?", "Have younoticed less interest or pleasure in doing things?", "Are you here because you tried to hurt yourself?" and"Have you ever tried to hurt yourself before today?".ABUSE ASSESSMENT: No report of abuse.NUTRITIONAL RISK ASSESSMENT: The nutritional risk assessment revealed no deficiencies.FUNCTIONAL ASSESSMENT: Functional assessment: no impairments noted.LEARNING NEEDS ASSESSMENT: The learning needs assessment revealed no barriers.FALL RISK ASSESSMENT: Fall risk assessment completed. No risk factors identified.SKIN INTEGRITY ASSESSMENT: Skin integrity risk assessment completed. No skin integrity riskidentified. --18:34 10/03/20 Jaelyn Pastrana R.N.FAMILY HX:Unable to obtain family medical history due to the patient's distress. --19:22 10/03/20 Matt Ruby. 3 Clinical Report - Nurses [facility] Emergency Department [address] [place] [address] Phone #: ext- [phone] 10/03/2020 18:05 Patient: BRUNA LEE Sex: F : 1985 Age: 35y Interventions Identification and allergy band on patient. To treatment room. -- 18:34 10/03/20 Jaelyn Pastrana R.N.PHYSICAL ASSESSMENTGENERAL / NEURO / PSYCH: Alert. Oriented X 4. Appears anxious. ( distracted thought pattern,jumping from one idea to another, speech loud and aggressive, continuous talking of accusing other peopleof harming her).HEENT: No pharyngeal erythema. No nasal discharge. ( c/o sore throat but states it is deep, points towhere neck meets chest.). Mucous membranes are pink.RESPIRATORY: Respirations not labored. Breath sounds within normal limits.CVS: Capillary refill less than 2 seconds. Pulses within normal limits.GI / : Abdomen soft and nontender and normal bowel sounds.SKIN: Skin intact. Skin is warm and dry. Normal skin turgor. --18:49 10/03/20 Althea Dewey R.N.NURSING PROGRESS NOTESPatient gowned. Reassurance given. Two patient identifiers checked. Call light placed in reach. Siderails up x 1. Bed placed in lowest position. Brakes of bed on. Patient ready for evaluation. --18:508 Althea Dewey R.N. 19:20 10/03/20. BP: 126/88. HR: 84. RR: 16. O2 saturation: 97%. --19:20 10/03/[address], [facility], Tech1 19:27 10/03/20. ( Pt starts yelling at staff, "no one believes me, I don't want to be here." Tried to redirect pt back to room, becomes increasingly agitated. Walks out ER ambulance doors.). --19:35 10/03/20 Althea Dewey R.N.DISPOSITION / DISCHARGE The patient left the Emergency Department without completion of treatment. The patient appears to be alert and in no acute distress. She stated is leaving due to personal reasons. Notified of patient departure. Prior to leaving, she was advised to stay for completion of treatment and return if needed. She was informed of the risks of leaving. Patient left without signing form prior to leaving. She left the Emergency Department ambulatory. --19:31 10/03/20 Wilmer allen RN 19:32 10/03/20. BP: unable to obtain due to patient not present. HR: unable to obtain due to patient not present. RR: deferred due to patient not present. O2 saturation: deferred due to patient not present. Temp: unable to obtain due to patient not present. Pain level now deferred due to patient not present. --19:33 10/03/20 Wilmer Maldonado RN.Locked/Released at 10/03/2020 20:18 by Althea Dewey R.N. 4 Clinical Report - Nurses [facility] Emergency Department [address] [place] [address] Phone #: ext- [phone] 10/03/2020 18:05 Patient: BRUNA LEE Sex: F : 1985 Age: 35y Name Value Range Interpretation Code Description Data [place] rce(s) Supporting Document(s) ID Date Data Source [id number] 10/03/2020 06:06:00 PM EDT [facility] 1 Clinical Report - Physicians/Mid Levels [facility] Emergency Department [address] [place] [address] Phone #: ext- [phone] 10/03/2020 18:05 Patient: BRUNA LEE Sex: F : 1985 Age: 35y Time Seen: 19:09 10/03/2020. Arrived- By private vehicle. Historian- patient. Disposition decision: 19:59 10/03/2020.HISTORY OF PRESENT ILLNESS Chief Complaint: ANGRY and PARANOID. This started months. (Patient believes all her family is trying to poison her with acetone. They are hiding in the crawl space and ceiling and spraying acetone at her to kill her.). Recent drug use. Has not been sleeping. She has had anxiety. Has been angry and paranoid. The symptoms are described as moderate. Location- mouth. Patient also admitted to using two bags of heroin yesterday. She is trying to get into suboxone treatment. Additional history - Recent admission to [place] for pscyh disorder. Similar symptoms previously. Recent medical care: The patient was seen recently by a health care provider.REVIEW OF SYSTEMSNo dizziness, palpitations, vomiting, diarrhea or fever. No cough, urinary frequency, fever, chest pain ordepression. No suicidal thoughts. She has had difficulty breathing, a sore throat, chest pain andabdominal pain. All other systems reviewed and are negative.PAST HISTORYSee nurses notes. Problems: Gastroesophageal Reflux Disease. ADHD - Attention Deficit Hyperactivity Disorder. Depression. Anxiety Reaction. Schizophrenia. Peptic Ulcer Disease. PTSD. Polysubstance abuse. Additional Surgeries: Hernia Repair. (Umbilical ). 2 Clinical Report - Physicians/Mid Levels [facility] Emergency Department [address] [place] [address] Phone #: ext- [phone] 10/03/2020 18:05 Patient: BRUNA LEE Sex: F : 1985 Age: 35y Medications: chlorproMAZINE HCl Oral (Tablet 100 mg), 2x a day. Cogentin. Gabapentin Oral (Tablet 600 mg). Keppra Oral (Tablet 1000 mg). Allergies: Amoxicillin. Bactrim. Certain antipsycotics. Methamphetamine HCl. Penicillins. Sulfur.SOCIAL HISTORYDrug use. No alcohol use.FAMILY HISTORYUnable to obtain family medical history due to the patient's distress.ADDITIONAL NOTESThe nursing notes have been reviewed.PHYSICAL EXAMVital Signs: 10/03/2020 19:20 BP: 126/88. MAP: 100. HR: 84. RR: 16. O2 saturation: 97%.10/03/2020 18:22 HR: 116. RR: 20. O2 saturation: 96%. Temp: 98.1 F.Appearance: Alert. Patient is in apparent distress. Is disheveled. Patient is uncooperative (yelling atstaff).Eyes: Pupils equal, round and reactive to light.ENT: The mucous membranes are not dry.Neck: Normal inspection. Neck supple.CVS: Tachycardia. Normal heart rhythm.Respiratory: Painless inspiration. Breath sounds normal. Chest nontender.Abdomen: Soft and nontender.Back: No tenderness.Skin: Skin warm and d ry. Normal skin color. Normal skin turgor. Signs of IV drug use. (sclerosis ofveins in upper arms and leg).Extremities: Extremities exhibit normal ROM. No lower extremity edema.Psych / Neuro: Oriented X 3. Cognition normal. The patient exhibits altered thought processes.Appears to have delusions. Denies suicidal thoughts. Patient does not express homicidal thoughts. Thepatient does not appear to understand hers illness. Cranial nerve deficit present. No cerebellar findings.No motor deficit. No sensory deficit. Reflexes normal. (flights of ideation. pressured speech).PROGRESS AND PROCEDURESCourse of Care: 19:25 10/03/20. Patient has a myriad of complaints including pain all over, belief that 3 Clinical Report - Physicians/Mid Levels [facility] Emergency Department [address] [place] [address] Phone #: ext- [phone] 10/03/2020 18:05 Patient: BRUNA LEE Sex: F : 1985 Age: 35y family is trying to poison her. She states she has a lawsuit against [employer]. Patient walking around the ED, agitated and refusing further treatment. Old medical records ordered. Patient has had multiple ED visits.CLINICAL IMPRESSION Occasional substance abuse- heroin with delusions and drug induced psychotic disorder.INSTRUCTIONS Warnings: Further evaluation is necessary. GENERAL WARNINGS: Return or contact your physician immediately if your condition worsens or changes unexpectedly, if not improving as expected, or if other problems arise. Eloped: Patient left the Emergency Department without completion of treatment. Gown found on bed.(Electronically signed by Matt Ruby 10/03/2020 21:04) Name Value Range Interpretation Code Description Data [facility] rce(s) Supporting Document(s) ID Date Data Source [id number] 09/29/2020 03:54:47 PM EDT [facility] Name Value Range Interpretation Code Description Data [facility](s) Supporting Document(s) Discharge Summary [facility] EQHWKz5lEhNBPpGd57/LUSstSNLcn0VuXZbhGUe3QFfvDMYwA7GvVTQ5lQ5zGNP2XJmETxIpHbVmKVX4 [facility] [file] AgICAgICAgICAgICAgICAgICAgICAgICAgICAgICAgICAgICAgICAgICAgICAgICAgICAgICAgICAgIC AgICAgICAgDQogICAgICAgICAgICAgICAgICAgICAg ICAgICAgICAgICAgICAgICAgICAgICAgICAgICAgICAgICAgICAgICAgICAgICAgICAgICAgICAgICAg ICAgICAgICAgICAgICAgICAgDQogICAgICAgICAgICAgICAgICAgICAgICAgICAgICAgICAgICAgICAg ICAgICAgICAgICAgICAgICAgICAgICAgICAgICAgIC AgICAgICAgICAgICAgICAgICAgICAgICAgICAgDQogICAgICAgICAgICAgICAgICAgICAgICAgICAgIC AgICAgICAgICAgICAgICAgICAgICAgICAgICAgICAgICAgICAgICAgICAgICAgICAgICAgICAgICAgIC AgICAgICAgICAgDQogICAgICAgICAgICAgICAgICAg ICAgICAgICAgICAgICAgICAgICAgICAgICAgICAgICAgICAgICAgICAgICAgICAgICAgICAgICAgICAg ICAgICAgICAgICAgICAgICAgICAgDQogICAgICAgICAgICAgICAgICAgICAgICAgICAgICAgICAgICAg ICAgICAgICAgICAgICAgICAgICAgICAgICAgICAgIC AgICAgICAgICAgICAgICAgICAgICAgICAgICAgICAgDQogICAgICAgICAgICAgICAgICAgICAgICAgIC AgICAgICAgICAgICAgICAgICAgICAgICAgICAgICAgICAgICAgICAgICAgICAgICAgICAgICAgICAgIC AgICAgICAgICAgICAgDQogICAgICAgICAgICAgICAg ICAgICAgICAgICAgICAgICAgICAgICAgICAgICAgICAgICAgICAgICAgICAgICAgICAgICAgICAgICAg ICAgICAgICAgICAgICAgICAgICAgICAgDQogICAgICAgICAgICAgICAgICAgICAgICAgICAgICAgICAg ICAgICAgICAgICAgICAgICAgICAgICAgICAgICAgIC AgICAgICAgICAgICAgICAgICAgICAgICAgICAgICAgICAgDQogICAgICAgICAgICAgICAgICAgICAgIC AgICAgICAgICAgICAgICAgICAgICAgICAgICAgICAgICAgICAgICAgICAgICAgICAgICAgICAgICAgIC FfOERbZYQrPRZwNCIhJEGrFOb5I4kjSJMjTCJcJP4w QBg4Pq9+KXyPRoFbKFU4jmChfG3OKG2fq8UhZBodLIVvq7SoOWy9SS6CJRMnQMkgBG7DDOndlq3JKNJg JLTmlSHMv1rfUjQiSGM9HTVuNfxwGM9HTYKrI5wvszCdVPVmBJWPZGbbRLFOEKcbMFYGROPhNIXsRnFi CkRnWTJhNWXcZCGGPRB4NKJmQoTxJSYwOFPeUiBlFK PLCHLbAQSlYdYmJGWxWTOyVlbdCIVJYDV6DELsSgXjLLzhRP9Bj7DxzCQoQa1IMl5WJsOzVN7hlp7CNX mkVLRdQrzKBmm6XRfkVN8YaBFxbEQ3LFGvQWKWUnUrP8ger0LyASjuDQHWOMsdYU8Bt3IfbAQoMMa+Pg 1KSP9av6LuUBh8IUApJO6shp3MODrREwGuF2EfgWne YLSur7LwDLUtBUBSaE9pRTP2OWP8FZ14l6dtqAXRvVBtOLNBMLHheBX3HpMwYmKsHQAiQPneOUAZUPyD PnIrL5Nkz3NjWdX6INThChNzNBigENCbTsC1UD56oRpzIO1HJREsDBAvXG69FIF4JNOaAm6ZCu1LWsZs UQ6uxm7KWHczGIWlCkxHJzp5HNdwKO0YjDEaA0MteJ Hip6nDHrLqX7RXFCG2BKAyUa6CYXZqMbUaFKWaQQzxHX4iICUoOXTKoTznwqI6MN5JBG3zerBoHZ0BTs DfKo5dCs1HEeJwC0YaW1XuWOGbWMJDNCvkGM1PHHpfTW4vSQ6Gz7VVkSMleX3duu2XPEXqWGPrUyhhlh 7GIlsjY7B9yQzhVWXrEHkqZWWSMSfpEN9JEJOuJZI0 CGL1KpXvCMFUCrXdU03eOO2VM0Fld37zIhQ1GGHiVmZuIYcdYM62uCkqddZsxHNcrMirLI8WGn2+DQpl tqKnZqcQPwikLCCOSuWaLfBKAlGrXWAkAJOaNPVvLaK0ChVsUa9JZAJrULIqMCMmKqYvCEOxZIZkOSes OZCxYYL7IOQ0LPHvNKVoQU3WGuLrANYsBeJ0DzDbZK XtUTSoeu2YIZQjOHLqCRI0NoStATAzAWXdPUwvLFSrDSR9YJL9RLQzRCJfGL1OOsJyGGZdTPJ9CzWoZU GuRIBmrd1PTBDyGYHeDBS2AdVhVTQbUCCrHBmnMYLcHZZ3PhVrNJTjJDRqQX5PTnLkOMFqNXXaPPxtSP GoLOWbkb8SFXOhIHZrKuM0FIVdKCNjDAOxHXseOBVw LGU7PYL7VJQvEJIqHC4NIvLdIDScNFD8VmLaVMVlHGUxom1DMMGgZRTiBMK5BdNtNSPhXTMwKScqPLRg EOJ6TVL6VCAzUBGxJQ3NIxNkBUHdUcR1TiWbILRpZBIpod1DUAVvYCDgOblyNySgSZSqYHSvLZxmTSGf OMD6TCL5IRYmPNLwSO9QDdVsZDYrTgW0FDPcIGWoUI Ixpe9OFLYcLFHbKFS3XGRzODHzKQElKZojTSXiCTMlJFD9SNJiMJOvAN4HEuGyINRyLvJ6XIGfWNJsUM Ldir5NSYVbCPWcBCQ3RQCzYEPgSVFdFSrePCDnQEK8KrS4GHLhHKSfHL4RGvSaDXNdYhQ1StFvUJDvKA Bfeb1GSBDkDZU5DPN7IrCnUITbAGScTKerLURbMQNo OkD4XWFjBHPlNP8NBfIgIJQjENNzDPZsNFDdGPWicp9PGNKjRYM7KuUfNJVhARYzIWPdHSonVQXuBMK6 OXPeDXCzKICfEA6DPpZoFWZwCUAsCecqMBYkDCWgle1YIKQyGAH0EEa1LkLbRIRhQXAaHHrjELLbNAI9 BNx5YWXkUGYnVW2SVeJaUVYuLUQwTaybHAMjEGFlgt 5PNNJuEAP9JmLbSzTqLWGpOPVySZcqPQQbHSC4DIE7JVNwNFRwGX5FQqCjIDRnKJz0RuNoTGOhOAXgby 8DYFYdSDR0WHG8BfYhETOySCHoZUwoDKNwFNI8PZgqTTMeFTIcKK1OQjNuARWgTNlhDRXnPOTaZCMtbp 7PCRMlBPT4QGQsSSCvKKMeHDUgYAjlSANzXRKpEyQ4 VHTyHULiVH4JVbZcEXSwHWC5OSQqYHKfGBErrk1OVZSiTLG0FUzmPZBfCXLnOUQiGEqvDEMaVWEjBNK1 RUCqKKFiUR6KQkGnPOZfOwXmVYGnBIFeQYNqdc9JQCIfTYQ6SzB4TYWcBOUaNDLmREnqJICtLEZiDrRn IHInQDGrAN9FGiMdWCIzLdw8MUElZCByPIKhsa8ZEQ WrDBM0ZdnyOhQlKMWlWVTpQCvaUJBfGTT2HBS0RXTrILOmQS7OCzKgCRSlIxloMrCfBTAyVOUxmx3QAN IxDGD5ILLaNgVzZJHvGNFdWOrnKQSsASO6OdF5YKWvGOAfDV0GGcObWXXeYdx4KbHxDHZyVINdty0LGP XaBAV3EMByIqRtNLEpUPIiJWxpEGWcHAO8NLziYGVu ENGpLW9PAeMrUTJzLlGwCUCmBENlLWMyfo8TGMXcMRI0DTA0QuHkFKUyCPOaLBfrIEUoZTcyCwOtANSp GXDaLH3GNtUqACudHOFEPua3TNdpU9p7GGL6FN4UZ5Lqf6QoRNxuGNYUBCghZI0htzUjZZHyLx0XE4jD IaktFjFsUPM5OuRjREXgENIyBtS1JoLnIJE6YKhxBG nqUg6gCDF7GaU0GPo5GMG3LkS4UzHcBQuuVQCoPPm6IJO9UQHiScPpVL1AXf5XHkX9OCF9tZRaIz7ZXb K6NfVTQiEqOF0CMDt= ID Date Data Source [id number] 09/23/2020 10:10:03 PM EDT [facility] Name Value Range Interpretation Code Description Data [place] rce(s) Supporting Document(s) [facility] UFWKEy1sOtLFTiXsd8CyMwUpPBRaYI0ijdj7T0L8sYBpX9IrzQElp1zsG0TaF4RbBBAvMZCOSQ3MsQZw jb2 [file] 5xMInlySUI7Cd4+MfotU/BfGmPR4NQD+rra+0jdD2Kz769zz0dU+PvHvMupv/gW4V8V1pu+vx5pVU+[employer] TE[employer]NOLOGIST g7gi/nxiVPbgVL+C95R9L48+Mcx2BX+lCfoq1nnmO6i8CeGtcuuBzgyQ39DgJ1fGnZ+1eWNveEs6kU/H hQhsc2n95jLA7++cdvAGSpb+urSgrF1J/fXTU+ji3u 1T5+I2y/VVV5fYP7YMAKiT6eYENZMPI0SzY4qMFlpTWnrNis6KAbQKsLkOeovZiluRDSQgjqRVJZqm9G DMvds44sFhGd96yZeWJn1FC8KfmQ40DrAmPUEGhipGIbFA72cLLvXPHBySZf+Ztw8yaysv2MLREyV7Zp dPfAMlrsSVTCVTSSgJJUvJUrK/RkHQza2BlVVhk6zz PRooEZ/C4Yg80Elw0S7FU8n0CgxolDYW4xv2xWrpPxC/Wb3nvpVCjUTzQ3uPbP6wpll+nboU/9/X2TXd chvX+V6/9h07aqadukLpxBqPRLtLE5myH8+MQkVoTOyW6GAzPlp7wke19VYpBK9xmhQ5mnksQ5NcDYWe 8NE7+LQJcYCKE3w8UO7vENof7nQfUInXktKXK7LHGK knPgaZFSda/JbUwvrfRdfR4DHark8LbfFqB8FvkJjZNfHE5uCx33GStq6Zuc9d+aFv4pjw3uKdzin5ju 0d4aAJvNa7T7Ug54azXgq7slMUlH2u2xphvU0zZHFgwWsHTODIoQM0thSSGeUsyHmCy38LwMYIgqUDm5 zeen3SM81iSnZXgiQBNaTJpN1eQInXM33ZCIeCCKkW zFbbcP5xnUq0CrefwTvh8LLqeJepMheQNFOeTC+b2pRo0xYc3lzl2rH9xMfagA/gtgF3Y6pBiuDl0hoq 7lFlw0teaEbAesF43Jpx2mQLGDg3kXYENOneZGvTxxrOaLuhR9NAWx7SF9af+JJcE4vwq5W9s1KOWvh9 iOYLFDxIMYPi1hJJMW5/axsJGGSUDHSktYUEDDJGxs [file] D38iyZ5smPhIwU/KIqe/PqsJnift3Aa5Rtn2hkG4KY+[employer]/H7u5KNPPcTD7ErdvFo1Wtr8P0D7gI00Upf gHfgHbgDd+AD+AA+gU/fEQpBxxFAN2L2IWvohXslfN0xjIpxzls48sACU3u17iC1MzzFv+AnvtKKr+oY +AQ+dLegZZkBu04p8IUhbNocSg2TR+PA5GTf906hD5 8yvqpNoM/7VzO+ux9iG75bc/Hd3cUdKrM20t5VV+/ythobjoOv+Kp+n/UIBZQc0xPYW7IbuUrXVewEop 793i24soea9UIHv280U2SVpv9o9vjXpNFwwJ5adYxt+Kzrvsqrc2+C+mKOl9Llb0HQbIe+0kpkdcdXWq qv7fnCe73v0X7J3ohoW5tshEy54TaUw8m2sLT3y/GO r7S2Sr/nW436nVn3fsEE+R1fve4/y7oP21bQEOw3QIXa3rRO/nuVt17edkbVP0Dg5PgnYMT07+O3FV9J UIw42gLtli33mw9J7nBuq8myHU/qh2evf8QeDBb7vv0aH+ogKiikTR2mB8KaD+wzXG2vAMqN3fMMafic 21D7ZfT60yICNzEHbUi3ZinAvRbiNf8EFSmR8eJuh7 ggqmg5n1f+aqK/mg58AB/AUd6J/fvwa3tlaiV4XqI/YyLLhd3v8M8F+lqOggN6tbVdU1g+szrnwG1F1t h5mfCeG5h+fn98EJ1NutOZy88mtBpQvVMrvMR0RbrfIDsRpc91Y9abix8koIHfAJvTe+AD+AA+gU/gAT eSEjo7biNs3boUD4HLwlTq7Adrtx1fbW0KS11j8TyN 7sAd+AA+gE/md3kE83nXgjpcx3u5td7UW+AC/Yx5PqIriwm9+vQK5XNeU5EPdfr5+atK3STeH7IIBtOn 1pchH7H0VrWT2UYhxH/7AQH615/4Ku+p2Vmjo427G62NC7V0zt9dR38hZr+73pj4MO+G14uhOzuFpO+y fuYH19c90RKeA+pzQ33O+GofP++IJhu43QmWU1FM2i A34Gi/FV/lcQfegZ/+uy5Vgy035ker6uhO76wSj2AC+LsmwOEy7cz0NGhhWajOL+XGjAT7X20ql60h5s 2uIr7qX+74PcrbT/+8FrxsX/V5/NZP/7xWu+z/OsrrKK+txV9nUxanbj1Ej74+Quc3ugxzfF9B45XaLz lS15Hqy/N1PF/I97O0N0k1F9k0XI2Y4q2Hv6F5P505 [file] fZGfdWewQTFQJkGdLJBCQRJGW6I= ID Date Data Source [id number] 09/18/2020 04:35:04 PM EDT [facility] Name Value Range Interpretation Code Description Data [place] rce(s) Supporting Document(s) Color of Urine [facility] Clarity of Urine [facility] Specific gravity of Urine by Refractometry automated 1.004 1.003 -1.030 [facility] pH of Urine by Automated test strip 8.0 5.0-8.0 [facility] Protein [Mass/volume] in Urine by Automated test strip Neg [facility] Glucose [Mass/volume] in Urine by Automated test strip Neg [facility] Ketones [Mass/volume] in Urine by Automated test strip Neg [facility] Bilirubin.total [Presence] in Urine by Automated test strip Negative [facility] Hemoglobin [Presence] in Urine by Automated test strip Neg [facility] Leukocyte esterase [Presence] in Urine by Automated test strip Negative [facility] Nitrite [Presence] in Urine by Automated test strip Negati [facility] Leukocytes [#/area] in Urine sediment by Automated count 1 /HPF 0 -5 [facility] Erythrocytes [#/area] in Urine sediment by Automated count 0-3 [facility] Epithelial cells.squamous [#/area] in Urine sediment by Auto mated count 1 /HPF None A [facility] ID Date Data Source [id number] 09/17/2020 10:52:19 AM [facility] Name Value Range Interpretation Code Description Data [place] rce(s) Supporting Document(s) Calcidiol [Mass/volume] in Serum or Plasma 39 ng/mL >30 [facility] ID Date Data Source [id number] 09/17/2020 07:52:17 AM [facility] Name Value Range Interpretation Code Description Data [place] rce(s) Supporting Document(s) Leukocytes [#/volume] in Blood by Automated count 4.6 10*3/uL 4-10 [facility] Erythrocytes [#/volume] in Blood by Automated count 4.27 10*6/uL 4.1- 5.3 [facility] Hemoglobin [Mass/volume] in Blood 12.5 g/dL 11.5-15.5 [facility] Hematocrit [Volume Fraction] of Blood by Automated count 37.5 % 3 6-45 [facility] Erythrocyte mean corpuscular volume [Entitic volume] by Auto mated count 87.8 fL 80-96 [facility] Erythrocyte mean corpuscular hemoglobin [Entitic mass] by Automated count 29.2 pg 27-33 [facility] Erythrocyte mean corpuscular hemoglobin concentration [Mass/volume] by Automated count 33.3 g/dL 32.0-36.0 [facility] E[facility]th[facility] distribution width [Ratio] by Automated count 14.0 % 11.5-14.5 [facility] Platelets [#/volume] in Blood by Automated count 261 10*3/uL 150-400 [facility] Differential cell count method - Blood [facility] Neutrophils/100 leukocytes in Blood by Automated count 32 % [facility] Lymphocytes/100 leukocytes in Blood by Automated count 55 % [facility] Monocytes/100 leukocytes in Blood by Automated count 9 % [facility] Eosinophils/100 leukocytes in Blood by Automated count 3 % [facility] Basophils/100 leukocytes in Blood by Automated count 1 % [facility] Neutrophils [#/volume] in Blood by Automated count 1.46 10*3/uL 1.8-7 .0 L [facility] Lymphocytes [#/volume] in Blood by Automated count 2.51 10*3/uL 1.2-4 .0 [facility] Monocytes [#/volume] in Blood by Automated count 0.43 10*3/uL 0-0.8 [facility] Eosinophils [#/volume] in Blood by Automated count 0.16 10*3/uL 0-0.5 [facility] Basophils [#/volume] in Blood by Automated count 0.03 10*3/uL 0-0.2 [facility] Nucleated erythrocytes/100 leukocytes [Ratio] in Blood by Automated count 0 /100{WBCs} 0-0 [facility] ID Date Data Source [id number] 09/17/2020 08:03:16 AM [facility] Name Value Range Interpretation Code Description Data [place] rce(s) Supporting Document(s) Cholesterol [Mass/volume] in Serum or Plasma 169 mg/dL <200 [facility] Triglyceride [Mass/volume] in Serum or Plasma 229 mg/dL <150 H [facility] Cholesterol in HDL [Mass/volume] in Serum or Plasma 38 mg/dL >50 L [facility] Cholesterol in LDL [Mass/volume] in Serum or Plasma by calcu lation 85 mg/dL <100 [facility] Cholesterol in VLDL [Mass/volume] in Serum or Plasma by calc ulation 46 mg/dl 16-42 H [facility] Cholesterol non HDL [Mass/volume] in Serum or Plasma 131 mg/dL <130 H [facility] ID Date Data Source [id number] 09/17/2020 08:03:16 AM [facility] Name Value Range Interpretation Code Description Data [place] rce(s) Supporting Document(s) Albumin [Mass/volume] in Serum or Plasma by Bromocresol green (BCG) dye binding method 4.0 g/dL 3.5-5.2 [facility] Bilirubin.total [Mass/volume] in Serum or Plasma <1.2 [facility] Calcium [Mass/volume] in Serum or Plasma 9.3 mg/dL 8.6-10.0 [facility] Chloride [Moles/volume] in Serum or Plasma 101 mmol/L 98-107 [facility] Creatinine [Mass/volume] in Serum or Plasma 0.66 mg/dL 0.50-0.90 [facility] Glucose [Mass/volume] in Serum or Plasma 115 mg/dL 70-140 [facility] Alkaline phosphatase [Enzymatic activity/volume] in Serum or Plasma 59 U/L 35-104 [facility] Potassium [Moles/volume] in Serum or Plasma 4.2 mmol/L 3.4-5.1 [facility] Protein [Mass/volume] in Serum or Plasma 6.5 g/dL 6.4-8.3 [facility] Sodium [Moles/volume] in Serum or Plasma 138 mmol/L 136-145 [facility] Aspartate aminotransferase [Enzymatic activity/volume] in Serum or Plasma 16 U/L <32 [facility] Urea nitrogen [Mass/volume] in Serum or Plasma 13 mg/dL 6-20 [facility] Osmolality of Serum or Plasma by calculation 287 mosm/kg 275-300 [facility] Creatinine/Urea nitrogen [Mass Ratio] in Serum or Plasma 20 [facility] Bicarbonate [Moles/volume] in Serum 27 mmol/L 22-29 [facility] Alanine aminotransferase [Enzymatic activity/volume] in Seru m or Plasma 13 U/L <33 [facility] Anion gap 3 in Serum or Plasma 9 mmol/L 8-15 [facility] Glomerular filtration rate/1.73 sq M pre dicted among non-blacks [Volume Rate/Area] in Serum or Plasma by Creatinine-based formula (MDRD) >6 0 [facility] Glomerular filtration rate/1.73 sq M pre dicted among blacks [Volume Rate/Area] in Serum or Plasma by Creatinine-based formula (MDRD) >60 [facility] ID Date Data Source [id number] 09/17/2020 08:03:16 AM [facility] Name Value Range Interpretation Code Description Data [place] rce(s) Supporting Document(s) Thyrotropin [Units/volume] in Serum or Plasma 1.400 u[IU]/mL 0.270-4. 200 [facility] ID Date Data Source [id number] 09/17/2020 07:50:56 AM [facility] Name Value Range Interpretation Code Description Data [place] rce(s) Supporting Document(s) Hemoglobin A1c/Hemoglobin.total in Blood by HPLC 4.9 % 4.0-6.0 [facility] Glucose mean value [Mass/volume] in Blood Estimated fr om glycated hemoglobin 94 mg/dL <126 [facility] ID Date Data Source [id number] 09/12/2020 03:49:17 PM EDT [facility] Name Value Range Interpretation Code Description Data [place] rce(s) Supporting Document(s) History and Physical [facility] ZAPEVp1fIaUTVgZz32/LMUpqAPUci8VnUMagXJr4GBvwKOVxQ4SfNTL6uM2bCDE6VNzYSwXzXyYzYyN8 lbm [file] [facility]+Hi090Lbg+22au5zm1tWxccGvWDLN/gXdXw/ANZMGKgiE3dLjZnsItdFxxohHgKh8jjIpM9/G2C0w [file] AgICAgICAgICAgICAgICAgICAgICAgICAgICAgICAgICAgICAgICAgICAgICAgICAgICAgICAgICAgIC UtHMEgSQIlBXAxKGStXX8JPTMmYSWlBGNaKETqUBApWTYzVFPuXZEzNKGtEVGtXAQcGDLaQLOtDPRoHM AgICAgICAgICAgICAgICAgICAgICAgICAgICAgICAg AKNlLDWrYGLtMAAbZBRbRICwUINmWWAsXJ5UFBDfTUEbCIVqSBZzRQFwCOXmGALuCYLyCVYiWBEyVLCi ICAgICAgICAgICAgICAgICAgICAgICAgICAgICAgICAgICAgICAgICAgICAgICAgICAgICAgICAgICAg ARRsWAGsSO4ORJLiFXIbZVDyGPLqFOKqVXWjKLRkBS AgICAgICAgICAgICAgICAgICAgICAgICAgICAgICAgICAgICAgICAgICAgICAgICAgICAgICAgICAgIC HoELJpQMHzSNLsBTTsZIBdRG6AKZMhHZQdVQPtVEVhUTZkGQFrJBZkHYTtAAHdJCHcDYKzHWTdTSNsNX AgICAgICAgICAgICAgICAgICAgICAgICAgICAgICAg HQIoPLChZTLkUSBlBWZxIQWsBSQlWIYbCJVlHY3UHPBjDPHyNATrURMyVWFoQETjWPEnGAFcSNYeSAYm ICAgICAgICAgICAgICAgICAgICAgICAgICAgICAgICAgICAgICAgICAgICAgICAgICAgICAgICAgICAg KBPeMJLxXXLuVL7YEPVaJFKiZPDdWUUpVDLgGVXwIC AgICAgICAgICAgICAgICAgICAgICAgICAgICAgICAgICAgICAgICAgICAgICAgICAgICAgICAgICAgIC LwGBOkLIIzZIMpGJBpWZXpFNKxQC1VSKCjRTOdCXRpUVWeBPCgPRUhPKZeLKOvAFHeDBZuNBDyQBMaEU AgICAgICAgICAgICAgICAgICAgICAgICAgICAgICAg LZSpADQkHNQiADAdAKWzSJIzHBIlNQMsBWOyEOBfSL4KSWTvHONrOWEiMEKcZHSfVYGoOUEfQFWcTGGo ICAgICAgICAgICAgICAgICAgICAgICAgICAgICAgICAgICAgICAgICAgICAgICAgICAgICAgICAgICAg HDUzSTDuHFGqPJPdSG0QUUPzXELlWOAcAYOqKBStMZ AgICAgICAgICAgICAgICAgICAgICAgICAgICAgICAgICAgICAgICAgICAgICAgICAgICAgICAgICAgIC EhQOLvQYBwEZUzXNPgQAAvHVBmIVYmHE7KYR93pJQon9Y3HMZoPL7wvvu/Hx3IOXsaotQutLNmTS2GPq HvWU6qql4UUgJrZM1pcb7CCNnZAhVeB3N9dHQoFVXu DIIMZqFgK34bAVacGe91LNzsQPHpNkKdSJp6Tz0NTfJvR1niMPLhTqM0UFYhEuS7MIAmBxR6QUMvMbHf BHNgVMMcIMHaUGDWYMY3YCPfDiBeEbCkZKTrSHjgLJUIQX6DRwWtX3UoeX76ELsPZz8+DQplbmRvYmoN GaB3ACCaq1EbJKj2PH9CKNGnIdupg6BuSTPcPWKOJH xkTY2OWEU4AXG1LSHwSs2VFYWmG400poJaYM6CMp3DKfCxUS9vel8WTQYhMZAwFldASso9VIzeBY3OvL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 AgICAgICAgICAgICAgICAgICAgICANCiAgICAgICAgICAgICAgICAgICAgICAgICAgICAgICAgICAgIC AgICAgICAgICAgICAgICAgICAgICAgICAgICAgICAg ICAgICAgICAgICAgICAgICAgICAgICAgICAgICAgICANCjw/aKEzS1vuiFVzacN0N7jbYz7GMh3SXM1l x2UdRVXeRUeqekJaHpbIUaCrZLDaGcaAWpj7KZlaFS3GnNCmL4UfK9QkHAjnWX0GILEoQARtcTYuUHId FKKcHvP1MIAyYYcqPN9IsODaVByzJICzMBVhPgQeYL NyJMQwPYIcNDPgBMOGBOHvGFUwUsMuWJWtIEFyMMztOFVDMP6XUgIvL2AnjU64NTaZTp0+DQplbmRvYm vJPkXrGOLuz0DwSGg1RY6QZUXqOdmrz9BeSFIaFTCHUPokZX8ECIX3JBFzUCSfFu4QWQWnB228ppHtIE 4RJa4RRkDuVM8uke3QTDAsBXQmBuuFXrn5HDnaLR6F vUEvRBkSOeKaPodfAWMisLiiSIahFR0oBR0INQI4KNtgRH2bRVCeVAIaRxL1PLQHGB6QKLRsKQZpdORv WUUaYGNAQH8RSMiaEGK5KUEuxiMjyTNhYNhoHU3GETOkjdTtHMIqGTWXMZz+Cv0SYA3zr5WrFWl7MyWb YI6mpu1WXHjQCcIqS4M9kENiE7T0RIakGk2AQNIrTN WiKDxdRFHOSFghTZ3WAB9gkkH3QS7AsYBxNVIbIFSxrAYjOFr4K14cpBRbOGfrYG9VKON+Luz+Pg0KIC TwGPDlNOVrItIqXUOWLuRjD0XnF1VLt8OvC3OgRP30cBawdaDmKEvzJH8CGC2zRZInDLGOVH7IpPNeuG 0deoC5CHVvLSVCCbNgC89gnDGdUINtJGIxNGNyJk0C FVDjW8RvmbPaoMfgxaXfZWFvDESFRW7GEBulntKvkPGunQvjDJ11qPyyFW6GYa0PTlEqTV0zcp6GoJBm Yy8PVPG2HZ0XSMSyZAOjVHIbOUG9WREhUnSoFJseLQIhGPGuRCJ5WWFxAZVrDF8ARdWeOAKqHAR8JPlb CLLrHNTzeb8GNBOrMUM4QdQiPNQwNEPnCTUvPCegCV FnKPOgIES7JVIaANQjFN1WEgEnYCVtBBL5MXOfXMBmMCRoxu8NJAIuILRmGWK6ZWEvKLAcWCFmJRcwDW HxFPS0VBh0HOBwBWXbMK8WXrFbAMIuHKj2EVLmIJPfIDNbph3WXMRxFHWfVNujANEpUFAoMUQoTJceZA IaJSIcACE5VUYhIWRuYP8VLxPsMBJeFZSoRVkoHFIe ILSpmd6PSGSnRPEwCMN2ZDTpJPSfXWKjXYgnKQRaUOK3CRH9ALVnMINoUY3DBlRdBVYrZKwjFPSrWKOx JQYwxc1SKVSwUCPwQpCbFdBuSFHuYEXxZFmrEFTiMFZdCsLlXFUcPLLeRU1JSgMuEZQnPcY3QkNfIQHp CHTymi5SPBSwQEBaRrO9VxLsPADrJEVdLDvxEDNvZU L6EAZ7SICyRJMkTB4XQqAkUXSbCarpGvPmYIOkNAYrlr1XPSCnEEBlGELdWmJzWIBwIKAoLRomNLNaKV Q5SSE7ZZPfFMCgAQ7OGxPvDXCjIio9HjjsTQIvSZYuwx0GYMLjBDHvPXh1WUOvUOPoXUOzAHyhJLHaCS PhNQP5JOVcGDDkNS2GHtHmCEFjDzSrJEHiUHEeCZUo us5ULAEbWBJoKJArRTOhSYZuXSOxMDipRCYaYYZkIPJ0LWTlTTTbDK0ZJiFrKTNxCoRwJhIcSNGjLVVi in9OJEQxSECjXrB1ERPjZHUuTGDfBBfrXLLgOIKcQBK9COQjNYBqTI1RUoLfBSNqYrU2WEotYSGdJKVv tx9QEMZwHGGiDoo0FTCnUFBdYXRcHVmcIVXbRMO8Ev ngUDPlYPObNV5EQaGxKVVzDXD3IVTyFEZhEPZwhb1FZLNjNGZ9FNjtJOYjKRFgKQQwQOiiIUBxFBC1ZU I2LTVcDLSbVV2IIzJeWNPzUTIiNABpZJEuHXIdib5KYUSvTCZ9NzEiPEUmJQSpHWViYPqjPKHdXFR2Cm IkZHSeLCJvVE2RMnPwGIXyVYk3NTToLTNvHRPura7A TCFtTPL2NeU3GDWfXVQrDHFuINbdKSKbVAKtOhg4ZIKhVUSkMZ5SGeBrKRFqJNN0UHFbYCRfGGIhif7T YLXuEEP7JuA1XGEzWUZfNWYxREhiQSDxOMQiZqv1DWNgWKYsXG6XMwCaKFDgQORlCxDlQGMbXWFvul1B RCTuUUE1ZUYjTLSwIHVxDQIkBBwyKOSnZFR3FRd4NL GbNTGvFY3UYiPfHYAjBSPuBYTeIYHvBTIyra0IWDTpMXG8HdG0RrDgICAuAHZdTDdqSWFtEGL4TwYwUC UwPROhBF1CQtPzHVEqGPI1EwtaCXYmLHLzkz5RhZXhpPnfvq8OIVeJTn2VqCysHUI8CLotMh8ewCB8Pp AzXHUJPl8YilXyORZmSXLLAKxgOIFbVRY2OYVqKnJj HNmqVwGrUxHhCECaOCZiE6S1Pby7FYJsRnW2XqFfEHR3IMFcErVsUEEeCCG3CBN2LgM3IHisVZNfUDG+ ZV8wSWl+Oy6Xi2AgtuW6bmGfEKg0TbYvHL3QGLZMO1PYLw== ID Date Data Source [id number] 08/26/2020 02:49:08 PM EDT [facility] Name Value Range Interpretation Code Description Data Elmira rce(s) Supporting Document(s) History and Physical [facility] DESRZo1mDoDALlVs09/NWYcbLNHho5XwXEbqKZw1KWjnEDAdT1AmTUN6xI8wADR8NKzJWoCcUgPjYhMd lbm [file] DQogICAgICAgICAgICAgICAgICAgICAgICAgICAgIC AgICAgICAgICAgICAgICAgICAgICAgICAgICAgICAgICAgICAgICAgICAgICAgICAgICAgICAgICAgIC AgICAgICAgICAgDQogICAgICAgICAgICAgICAgICAgICAgICAgICAgICAgICAgICAgICAgICAgICAgIC AgICAgICAgICAgICAgICAgICAgICAgICAgICAgICAg ICAgICAgICAgICAgICAgICAgICAgDQogICAgICAgICAgICAgICAgICAgICAgICAgICAgICAgICAgICAg ICAgICAgICAgICAgICAgICAgICAgICAgICAgICAgICAgICAgICAgICAgICAgICAgICAgICAgICAgICAg ICAgDQogICAgICAgICAgICAgICAgICAgICAgICAgIC AgICAgICAgICAgICAgICAgICAgICAgICAgICAgICAgICAgICAgICAgICAgICAgICAgICAgICAgICAgIC AgICAgICAgICAgICAgDQogICAgICAgICAgICAgICAgICAgICAgICAgICAgICAgICAgICAgICAgICAgIC AgICAgICAgICAgICAgICAgICAgICAgICAgICAgICAg ICAgICAgICAgICAgICAgICAgICAgICAgDQogICAgICAgICAgICAgICAgICAgICAgICAgICAgICAgICAg ICAgICAgICAgICAgICAgICAgICAgICAgICAgICAgICAgICAgICAgICAgICAgICAgICAgICAgICAgICAg ICAgICAgDQogICAgICAgICAgICAgICAgICAgICAgIC AgICAgICAgICAgICAgICAgICAgICAgICAgICAgICAgICAgICAgICAgICAgICAgICAgICAgICAgICAgIC AgICAgICAgICAgICAgICAgDQogICAgICAgICAgICAgICAgICAgICAgICAgICAgICAgICAgICAgICAgIC AgICAgICAgICAgICAgICAgICAgICAgICAgICAgICAg ICAgICAgICAgICAgICAgICAgICAgICAgICAgDQogICAgICAgICAgICAgICAgICAgICAgICAgICAgICAg ICAgICAgICAgICAgICAgICAgICAgICAgICAgICAgICAgICAgICAgICAgICAgICAgICAgICAgICAgICAg ICAgICAgICAgDQogICAgICAgICAgICAgICAgICAgIC AgICAgICAgICAgICAgICAgICAgICAgICAgICAgICAgICAgICAgICAgICAgICAgICAgICAgICAgICAgIC JySETlYXDuTNRbLPMpHLUuBUIhUUk1S1arVYBdPLCcCN9uKCx5Pt8+GBtGLfHzEZE1qfRweY8JCV9wt2 HnIYhhMMWwn2BfEJk2OF7NRWYtNWdjGW0DBIjvgo3E NXMsJJSwsEMLh2pvIuSdIXC6KBZsIqogIH8AFYZwZ8acjzPzLLNaCIKBWHsyLQPMLReeHLPBCFCbBQSx JiQaHJojYO0Gh2OxvRJ2ZKu+Xj9DUQ5hd8BwPCtxWELcPV3isg4TENiYVtHmY9EpkbQ8IZV2ZNHlBz9V PTJxGBJzmJVkEPHqTAEYCtBpL1ZwsE02FSQNUz8+DQ fxacPrFfyCNnF4PEDdo7AmLMa6GV3PYBLpOKj5yOVvZEHXQSO6KFWsBL3uPXYUmWEhYEIuVIGSBTH7RC qgWB7iVWNnRHCmTvK0EIYBAO5LELBvDAEygLAhZECuCZNKYC1IJRkfCDG5VYXueiDbsRKrUXvvOG2EVI JlbnQgMzQgMCBSDQo+Wc9JIC1ue7WiXDxrOaNsFW6n fh7BASkADlQuR9B3dAOzV8X9DGdmUu1ITHTiUGUvRjRzERQMMGagGP2IDU1xwaP3OI5YuHVvXXBsRYBa eNPkVRi4T67ioKEsRMgfLE6HANK+Luz+Ab5XOWDzEOPiSBJwMjJwFQTZYlWqE8ZbT7DEt6NdI2WcCO26 gJyohxInELsmKJ6ERL1pUYXkWWIQTX9FwRCzwT3vrn QsEBJnXHTWOeOwC96xeHLrBDSfSGUsPTLbMo0QULGxW9VikmClyUduwoIfUBEmYLYAKO4DBUcmcxGcxO LmeLcqRP14hVnzTX9ZDp8PHhGjYO4voa9OqSRpPg3GDMIeTz1GFDWzSXBaVUMeAVK1PPBfWcBfKGtdGG UdURCaAII5FBNzSDGcYW0QXcVgDMJzIbX4MjzxSQRo DCXvag1LVBGeJCVrUrY8ItMsRKQbUQErNXiuMHScDMCzEXV9QURnKNBfRF1MKvNkDMFhGFM6QprvXZNw ROEcep4CMDZlXWLtEuYfKvKjNAVxMGNgBOygEFFbVFT2IQS8WJNeJLEdAL7TFiKlUFEgWEE1WzGeGTOd XQXthl4BLMDcUCEdACK4MmWdUPDjZIPiQSbqFMYbRA D9PVLqFPRkKJDvCL1OHiUtJWTpHEY7OYEbBYMmJWRswh5RCMNvCFRoANc3AzYvJUZkSELyPOasAFKkMJ IwGGKbAXFgRTRvPI5BUhCmRLMoBWAtCAgbBEAyNUYbyq8UVBIbFPTgUmX8JvYqZWZaGNWsCPsuTURwON Y1BrFdJSCuNCKeMM3MKsGmYPFgNCA8FHOdQVAjWYFp iu6JLHKiISNuBBY2MWCiZAWbTWRzRNirHJFtXOV7JoCrJWOsSDBqSN7IDuIoDTBvAGR3BMmcMZDbFHLb ff9ATTOePZHbZXf1WRWuNDKiZWNpJMkaJWXwREE4JdQ1ZPUoTEWmHV5GOzYfDPLwTdu0IFGoYANlTGTd hx2SMNWsFQDmMqz5ClYqFLZfRCLsZPjxPOPcJHO7DR JlUDSrHOLzXU7VZtWcFOKgBwqmRxelTYWhAWYxlh0SXMEqIUIuQUBaEzRlHLTgTGTzIFrtWJRjEUG1UC SySNDwCYSxQN1VPpLdFPCeDzk9SHwlMQZsTSOhjv9WMPBiUEYfRYObSWMfHOLxKQBtVEqmOGRvBLCdSq D8CGHwAJPzMG6ZPuYkHHZgDgK3PUokFOIuCJCjzh4W YKKhPXSpFES7XxTiJWOsXGKpAQizJGOiEIIxPNOdEKAkBNHmLG6RNaHsDGDeGpC1FTFtFEPqZXZvkq1S BJBhKFJkRuCgBGNzNJEsCRPpDYy7neRriWObIYi4RX0QX5EqgxIqNokELz4Le028VDE5KCXyBu4NI8gw Ty2sAMXvABFKFp2GMHg0P8B3THJcWKBkIeH8ZwHuXQ HdSSK6XiouGjt2T6K3ERZ+AYb7LbbeZ7LoNBQ5Zoc4VNPpRzQ7CIjzCJS7ACksYgFwSk7aBHDETq9+DQ kpeEDvcYshVHBGZjGwPfK2AUptBJVHJr7B ID Date Data Source [id number] 08/25/2020 03:29:00 PM EDT [facility] Name Value Range Interpretation Code Description Data [place] rce(s) Supporting Document(s) SARS coronavirus 2 RNA [Presence] in Res piratory specimen by MARK with probe detection NEGATIVE [facility] This lab was ordered by [facility] a nd reported by [facility]. ID Date Data Source [id number] 08/17/2020 03:58:41 PM EDT [facility] Name Value Range Interpretation Code Description Data Elmiar rce(s) Supporting Document(s) Discharge Summary [facility] IWRHGe0wTbKISfAa39/VTNlqGPXnv7MaFSjoDKm8YOudRRAvS5XnAUN0vV2gVRF3BSaRJrLmXlTlPoCe lbm [file] ICAgICAgICAgICAgICAgICAgICAgICAgICAgICAgIC KhVXPdQYOtFYUaCCVfNZNjRIZlTXRwCNXdIUBuMGBaCVOzLLUcNJ0ZNVKjHECjFRKdJINuWKQtEATeLP AgICAgICAgICAgICAgICAgICAgICAgICAgICAgICAgICAgICAgICAgICAgICAgICAgICAgICAgICAgIC WpCEXoSBJmNZVtOWJqRDVjEBXnTB9ZCCBgMXZoNXQu ICAgICAgICAgICAgICAgICAgICAgICAgICAgICAgICAgICAgICAgICAgICAgICAgICAgICAgICAgICAg DEIzRYKzJSSbHASmOQEjNSZaYZVaEEGeVCIhQVNcVL1XMLXqFLBsVQRsGZDxQGLySJSiWQBxKWFqWHLm ICAgICAgICAgICAgICAgICAgICAgICAgICAgICAgIC MiUOWfWYVrCUHoGUSiRDLtELMsDEJbBISxSAOxUAQrAWXnGPBpYUSuMP2OJXBxGKTrAZGoJRUfLNZkJF AgICAgICAgICAgICAgICAgICAgICAgICAgICAgICAgICAgICAgICAgICAgICAgICAgICAgICAgICAgIC ZgDYQtSDFkVERrMAQfFJYoRPEgFCGoVH0INUQfSYWr ICAgICAgICAgICAgICAgICAgICAgICAgICAgICAgICAgICAgICAgICAgICAgICAgICAgICAgICAgICAg HGYdQUKjIMUxLUFrSAIvRXRuJTBzVUCcGZWkDRVqTAFhIJ2ESZIqGKYxBRPpYMPkRPAwJQPtASHcSIPe ICAgICAgICAgICAgICAgICAgICAgICAgICAgICAgIC ZhHFQwAVLoKHKoZSJfQLUnBOPgPHMvFQSqVKXjRGNcBYGpOOAcMBKrHWJtLU5USKOgNGYiAGUgGMKzTT AgICAgICAgICAgICAgICAgICAgICAgICAgICAgICAgICAgICAgICAgICAgICAgICAgICAgICAgICAgIC UjJUUmDTPiUVRmBRChSEZiBDRmAHKgYDCnKM3YSKDd ICAgICAgICAgICAgICAgICAgICAgICAgICAgICAgICAgICAgICAgICAgICAgICAgICAgICAgICAgICAg GQCzJYRrFICaJYKxWVZkAMDhTALmUXRpXIZqKJAzPUOyPEIaLF2ZOHTcQDDsXDMdMZYnTBAfNHWxRXZd ICAgICAgICAgICAgICAgICAgICAgICAgICAgICAgIC EhDDUpXMVtZBNtIVTpYURsLXOrTSBkHVIpRCFvQHWsBVLwFJOcHILhTEAhQBUdRM9SHY64qQJjg9V9QU CbUT4jiim/Te5AIXgjgkTosDXzCU7XEvEyWK0xbu1KEkLeLH4mpr7NKFwYJdXkD1U8cRZnWXUiRJOPMm UlF75vNGtjGv15NUkjSJYuYjSmDNx0Yh5DKuGaK4fr ICWsRzC2AJYvNeI2QKWcYjA4CANzQqMlQJKnBIRrBAZlZPIEMYK7MBWmYfSyAxEhNAVpBUpgAUTSZGJa CWJiBoLmQsBhQYNsSY6VLSAqK110grDhNMCZSt4+SZrbhzPwFpfJHnO0KDUnc4ChTUj7PB0FGHYgIeds k5UoLGbhKPSOAVuuGG7PCER8UUI8SFNeEr0YTELkZ8 34lmTzUO6XLy7CJvPoBL1jjz9IUGzdYSUnOdvKAqj6VNwjMQ6CvMTrUOaUuLWegRJxZ2UpU8LprHFzvS JwmPABpWWoOPFpZJMtqnTfBlFumOdywJvcXXVhKYLwGu9eSm4zVZAjPFJyMcGwQXBYXM5FSYItLGPihW CaQDFxEBCGZR7SXFabWRR3TBZrvrAfiJRsFPggHC9Q YXJlbnQgNTcgMCBSDQo+Ws4FWQ3ox3HoJZi4NRWqPG0vql0ZSGnCLlPoM7Q0dPCpT5B2QOzrRj7KOIRf HXFoDKYkWRTSKLcvHT5VKR6kcbK8OO5SjALrMHFuEZOunESeJBv7H58neKCvOCbqAL7QKVD+Luz+Pg0K NZZrSZGrLPSzMqPzYUYDOwVaG1TbG7PHa1LqA0EhFU 07vKcpplLfWBliRM0RVT0cEOXeCWLFIX9ZcMRnqK2hjkI0KcHaZDBBKnLyJ07bkPYuTTTyQCT5UUBwXz 6XFXWpT1AgrtXxpGernwZiADFrVVWBPL1SOQhuclNprSLouAjcKZ77gUenLD9SIn7MYfAzJE3ent2VzJ BcOz5WVWD8TE6VPYRfHWZbXPPpHEM8RMXbFzDdVFcr GNNbDVQpLBS5DHIgOOMnZH4YMqStASWzQeL9RaTyNOMyRIAuwm0VEHBjESC0UUI0FTRwOUUoNPWjCDmt VABpHFInAFD4NBZnDNAeNB2QKuAdMDUtRUEeLQuyXQOxMLRqpo7PKQCuBFBzQZE9QWRkLYOlONWtIJtm JKZcENT1BfQhLAMdAOIqAC3CBwOrOAFaQGz8YJXoLH KfILQafk6GBNCjYEVpYjCpPWQvHITcYVMlAZzvJETdRUFcVqC1UNCtUXJmUA5VWkCiBUFzYLK5ZKgkZB NnEFPwoe4JFWKwSAXgFmj2UDPuYZAuALImOKycDSLwVRKnJYClENQsUKYxWM8IQaYzHICcTqFaYZzfPU DuMQNvhx3KQFVkDGCxDFA4TVPiWJTnGDAtAEquEADo RWC7Upd8BCUuDYYeIK4JFiAmKOXsXxy9TtTxPCViTKMulb9FMYQmEUEzDDCjHrBgURVtAIOfGDwmCCHe XRQnDBUyVXMqNIKgZU4ORmYqJGCyLjZvDauxNFQeQIOwua5FFJHrYTZrPHC6JEUfJZHeRMVsRGpmXNBb HMH5BvNuTLOfGPJgQD1XGaNnZBCbGaD6ZWSuDMXqYZ Tqbc2SJNFuQCRfAlssMwThPBHdJAOmHMbqWQLlEMM7Cjr2WCJmZFDrEJ6KOrOaPUVeQwx7AzHlEBEzGA Ymxo0TBQTlJLZfIJF6IqVhOOChXOKcTQixMFJoYSP4RQR7LZEhVNCfVI9QXfDiPEKwAutaPNcpJKLaEG Ihzs0AKOWzECOdCNRgYYElQXWpXOQqDJcxDPYoQJUv LMW6WLEtSILvLB6UHjUeCRLtVQM9UqRjUJRvDAMdkc3DBGXaJBC2WVn1UOJpQIUzKHBcFXanTRAjJBQl LRX8AIDkKUSkZD9MIvRgTEZzLAUrAFOkTBMkSZGmnc2KYMTeEXF9UwQ8NDBxYLUqBKKmXXeeBXTeVKPe GDW1ERXaITOyWR6TLoLuDQYnUCRsSVwwHWUrKQPstp 3LEPMjRMZ1BtB4PQIrQYJsCATuCWliEUMzDOL5KQZdKCRhLWRhQR1XKoGwLPWjKRQeBXItIBOaCVUirv 1RFTSyCQQ4WXK8UIOqIQKyNDJcTXkmGHNgBLX6Gyl6NKGdFMFhXS0TLtMoVSAkOMN6EBCuTMMiGHJgmi 6GQCWhPWO6KOptEGRmOZEjZDWfAZbnGHAmPGNfBSA4 ZLHnXTIdSG2AYzWzOLSoJiNoIdYzJISiLTTtjx7ZUAXuBXR7ACT1BSBuGCEfSFTrJYndATQtAUMbZoG0 FIDmRBVvFL9CSlRqNFHqAvR8SaVcVEOqAHKhql4JRGOuUPR9Sid8WOTgWHRiHAQrBDwyTETuEUNbFSR9 JGHuPFAxPJ7JXbNdCORqMeRpRIRpFAKqWPIsnj0ZOE GdLRG5GnL7RPZtDSYhVSEtGXdpUYThLZIwHSExHENvOODoZR6PCpShCXLxBvTpPPksCNFoTOCcmy6XBL OeHYT2WKB0ZGJlUGAsGHBqFTfhRGDoQLC4CdC0LPErQWMxMN4IAhMiMKGsWhU0LmtqRDVqDCOgvq7HtC UtiTdpwc3GFTzOFd0LyAclYVIoBEycJo4qxRQ0RQYd LHXNXl6VxoEeFAMqRGXVPVvzFKFwJWWfHPSkZCk7JAJlB6DvQ1J6DwOsDWOaOAD8LIjqZNayBlG3U9Dm MQQaBgR8CrP8ROA9OlIoMHGkJDA1RMi9RBM8H4G+EL9iPUg+Yq3Tt7DcolV6bxHsZEl2TuEwMY6FWSSM T0YNCg== ID Date Data Source [id number] [facility] Value [facility] Interpretation Code Description Data [place] rce(s) Supporting Document(s) Color of Urine [facility] Clarity of Urine [facility] Specific gravity of Urine by Refractometry automated 1.010 1.003 -1.030 [facility] pH of Urine by Automated test strip 7.0 5.0-8.0 [facility] Protein [Mass/volume] in Urine by Automated test strip Neg [facility] Glucose [Mass/volume] in Urine by Automated test strip Neg [facility] Ketones [Mass/volume] in Urine by Automated test strip Neg [facility] Bilirubin.total [Presence] in Urine by Automated test strip Negative [facility] Hemoglobin [Presence] in Urine by Automated test strip Neg [facility] Leukocyte esterase [Presence] in Urine by Automated test strip Negative A [facility] Nitrite [Presence] in Urine by Automated test strip Negati [facility] Leukocytes [#/area] in Urine sediment by Automated count 0 -5 [facility] Erythrocytes [#/area] in Urine sediment by Automated count 0-3 [facility] ID Date Data Source [id number] 08/08/2020 03:50:12 PM [facility] Name Value Range Interpretation Code Description Data [place] rce(s) Supporting Document(s) History and Physical [facility] CFNYFj4uNcOSAnIz68/OTAjyQFYby7YhNTryZJg6UFnzOWNnC1VkBEQ6tN2bNCS5MStSWpFlHoFlBcOg lbm [file] VesSxrIUUUDvLlWAU8AOwbUZZMMt9Z ID Date Data Source [id number] 08/07/2020 04:12:43 PM EDT [facility] Name Value Range Interpretation Code Description Data [place] rce(s) Supporting Document(s) History and Physical [facility] IHBNRa7jKbNNHnIf39/PRJluIRLpc1GvYKfmDEl1XUqmPLSyA7CjHOH0cK3oLMP3FVuKDqIkEsNtPzHz m [file] ICAgICAgICAgICAgICAgICAgICAgICAgICAgICAgICAgICAgICAgICAgICAgICAgICAgICAgICAgICAg YFKyVUWmGUDjJQDpUCElOJ9PVGJpNCUoUMPbKJCcLBRzUGMpOPHhJKUnBNEcGCXcRAMeMSRnCBIyXLBj ICAgICAgICAgICAgICAgICAgICAgICAgICAgICAgIC NoMZXiHLViQNPpLTPhZABgYFMfDFHpTGKnNB9VXZVtWREiLRZmQSVuOTQgXMSmIBSgWMKkCMBkMNMcNW AgICAgICAgICAgICAgICAgICAgICAgICAgICAgICAgICAgICAgICAgICAgICAgICAgICAgICAgICAgIC YxNYFzGPGzOW6KAIVcGJNhJMClLOQvUKZlIVVbHWSg ICAgICAgICAgICAgICAgICAgICAgICAgICAgICAgICAgICAgICAgICAgICAgICAgICAgICAgICAgICAg WIBeMUFnZDRtSBYgEQUoJAHoBC8ROZOrOMTiSYHyMNRbOQLnUUWbFTCrJEZsHQKjOXOvPHCiRSPuUCYb ICAgICAgICAgICAgICAgICAgICAgICAgICAgICAgIC JhWYYwCFRaIVQyTPJcLJFqCWTeFXTrEAXzMEWcXM1AKPDzQIQxASKdAMJlGXOiBRJqRDAsCHFsOACoNI AgICAgICAgICAgICAgICAgICAgICAgICAgICAgICAgICAgICAgICAgICAgICAgICAgICAgICAgICAgIC TePFWnZHXmCSDjWQ8OPRTtLONfVEMsWPVcOUPeBRLp ICAgICAgICAgICAgICAgICAgICAgICAgICAgICAgICAgICAgICAgICAgICAgICAgICAgICAgICAgICAg RXJaHTKbQPDtHCJwZUAaBMSqTYFlHI6CWAOpMNAlLMTcPFAoHKIvAVEvMTWxZBZsFPDgQWVqGIUhBWDs ICAgICAgICAgICAgICAgICAgICAgICAgICAgICAgIC NbQPJgXKDbDPHpXSZjIRFbHPCxLDVwUEKeKZMfFURoKJ5QJPRtBPYjIQJqVAGaXOQqSCFxMKWxXRAbUI AgICAgICAgICAgICAgICAgICAgICAgICAgICAgICAgICAgICAgICAgICAgICAgICAgICAgICAgICAgIC KsDLVpGYQyRWHaJEWvVH3WHHMmGJBaIVJbAKJlDCIq ICAgICAgICAgICAgICAgICAgICAgICAgICAgICAgICAgICAgICAgICAgICAgICAgICAgICAgICAgICAg DGJvGGDfKAHfIGWjEAMlCSRqMJRrZUUfFL8EJL89qMHdr7W6KLHvRJ0tprq/Cm7RHIqtcnXioRBaQE3V MlCcAJ0zku7ISiRnEU6gvs3CJXzSZmRfZ0J9pAYfHG DnDXTSGgWlN23xEHkoHr66LSujUMWqBaCtPXp7Qb0EFwUpK1zlWJViXvH3BDHuPlK3RWRmVmR8NHCaKe MlJLAlOIQbBNMrRDFOQEF8ITQqYkQcUtZhIGZwLF6LMMQjW015zuOrKj5YCw6TPlHoMH0uqy6YBUDwGR EtVqmJRwh0GUprIO5BmOWetVS1KVBgUTFSEdQfW5kk p4XqROBsMBUKXNfdAH1Rd4BdeHAkZZj+Ee5PFB2uc0LyEEa1HPIcRU9kzg0BVPoMDpFsN2RjsCufCOpn DINteOLLwBHejSXjbZIdBSUQgZfsGMCmSQ0WKMD6PKTsRKSpWjGkOPPpINe9YjJRHVmJJnLhY4Kvt2Aj UvF8UHPcSjBdQPozEUAyHzA8YU45tIstDD2OPGEkZM OuDY61OTIhOVBcEz1VGq7UNnBwWZ7jhi6TVFQgGDMyJxoTJxa1QGhgHC4JgELbC8KyrYCzb3sFOyHvE4 JGYXFyCPKxGe2APMPrJpCeFHBuCUjyPJ7sSIWbMNTMtRorbwC6ZP8CIY9kjpQwUF3QBvRuCo5pHg4KLu MdS3YxL8OzLFSeLUSNEFazNC2QBHjsYD3wCK0Bp2EN zBNejS1dna1OFLCqYBKsCjhphc0WVzavQ2I8wAjkYVPpGUJpALECVEygTQ1OIZAsJNZ2BNB2QjIsPWTW LlGiZ89uTI9MK7Wcw37tIkB6UURcWnOyQAcvPR24xVpikrBjsSKskGknQL0YGt5+DQplbmRvYmoNCnhy CAGOJfXvYEXQXuOhYMFnTWKbRSNuTlI5HoAvEf1QTM DvZMBzPUTrStBwTMDpJABjQJchOQAgKDR1GQZ3HIGpZPRyDR3ATqRjWKQuPmr4DIQsGYPsKUAyig0WNI XpMJVeSLP8CpJgQGQuIKGiGQcdCQXlLFWwXVK5JRAqUOAyRV3BItGhDUZlVHThJLJpPGXjOGXjnu6SMD DvLJVhNbYjCpHbNIHzPHCnHOxxHWUqRMX1ZBC3EEBm LUPnBT7NTfJfQFCkGJG7KnYgULPaYRQjfy4FXBYgGHFeMEPvOvQyESUpODKoCEjgWLOqZWB7ZRs1HVBr NZTlME3ERhCpYXVrSPPfPVWoNJRxUJRvay8VSRKfLSMaAKg5MHGnOCTxEZSiPOyvSBDbQID1GGP7KQYb NNZnAX7FHqFqPQJiHgX6HfBdYOYwLCYfvg7LHNEnPY BvSsXjIcYkLXFnJNBrRPglACGmHPMbBWYcNSVtEUNaOE5QFcQrJIZrXlE5CeziAIZpIOOqdm3WMRYxLU UyGVCzAMMwDOMzINNxNIleNGDoGQX5NDQ8ONAqJFGjRC7UVnMtNZImMuRwBCbiOLKjTDUzby4OSIJcHE NyKOi0OgUdVVQvQUGtTIirIUHjIZX5LHY5NIUhMBPt FX8UPkBuIMQmVbIuBKhcOYWqARAbzy0YZALwCAKcAfEtInOvPEVhCPXpNAksVMTlADS0OUS9JHYjNCJm CO1KJdYwTIKhAsv8WQncPYXrKUMoez4LXTQiKFGmGEV3BuYdQZJyWJYyPEzzKTGdQCM2OUOkESQmBIDv FF3JWjThRRGsUfduFATqEXNiROFfsx6BQGRvSEXeMO XmDPWvRAZoJRMhLLpxHVFyWBMzVwF5RPFlFGIkIA4IOlHtWZLvPeL5DFDlITZvQJWurj3EBYVsGAMuJT O6KSNuVFEmAHHkZMcyGZKyDCK8URlfXRZoBSTnSH1HIfYcDMBxIyK1OLnmMOXnVENkat9KHBJhYWQqSk N6PLWlCHXgCENaGGauVVTjXBR1UuM2ANDhINOdLG1H ZpAfNBBjSkA3VBykZXSaSMXneo7YFCPlQWSsPyD8WXCsRQYmUNAdLIecAXDnKBV5OFF5KQCuVCWoAJ3S HbSiLLYvRuldUtRnJXMnXLPubu0UASBpVJRkXLy4TKBvPNPgMUKvJYgiTSAwJDV1PTR0AWJwSFTjGL0K KmTjTSQsIro9ChWiDBVuXSTdyr6NrTCukLvryl5VFD jLBm1YtCmkRNY9YZngAf7mlCS3EIOtZFLNCm2MumLeQNSfJZEOGMjlSCUuQAA9FVc6YjBnUPA6FPoeXX DeMxA5UhEyYwEgJVT8FRciMfF1RenfZiMwAWBcRVF5VJSfGAAcXyRsBlSlXSPnCOxrMMN+PB5bUEy+Pg 6Pi7HxvaI6ggVfJYnhUKJsWP9CEOSDA6KIPk== ID Date Data Source [id number] 08/06/2020 12:10:00 PM EDT [facility] Name Value Range Interpretation Code Description Data [place] rce(s) Supporting Document(s) SARS coronavirus 2 RNA [Presence] in Res piratory specimen by MARK with probe detection NEGATIVE [facility] This lab was ordered by [facility] a nd reported by [facility]. ID Date Data Source [id number] 07/28/2020 01:05:00 PM EDT [facility] Name Value Range Interpretation Code Description Data [place] rce(s) Supporting Document(s) SARS coronavirus 2 RNA [Presence] in Res piratory specimen by MARK with probe detection NEGATIVE [facility] This lab was ordered by [facility] a nd reported by [facility]. ID Date Data Source [id number] 06/28/2020 07:41:00 PM EDT [facility] 1 OrderSheet [facility] Emergency Department [address] [place] [address] Phone #: [phone] 06/28/2020 19:40 Patient: BRUNA LEE Sex: F : 1985 Age: 35yWEIGHT:72.6 kg (M) HEIGHT:61 inches (S) BMI:30.3ALLERGIES: Amoxicillin, Bactrim, Certain antipsycotics, Penicillins, Sulfa AntibioticsCHIEF COMPLAINT: ear pain, headacheDIAGNOSIS: Lifestyle / substance problems, HeadacheLAB ORDERSOrder Description Priority Entered Acknowledged InitialedDIAGNOSTIC STUDY ORDERSOrder Description Priority Entered Acknowledged InitialedMEDICATION/IV/DRIP/FLUID ORDERSOrder Description Priority Entered Acknowledged InitialedToradol IM 60 mg 19:56 06/28/2020 Ack'd: 19:56 20:01 Spenser Trammell Katelyn Katelyn PA; Reason for ordering with alerts: Clinical consideration given -- 19:56 06/28/2020 Spenser Rubi PATylenol PO 1000 19:56 06/28/2020 Ack'd: 19:56 20:01 Jp,mg Mariana Suarez; Reason for ordering with alerts: Clinical consideration given -- 19:56 06/28/2020 Spenser Colindresan PO 1 mg 19:56 06/28/2020 Ack'd: 19:56 20:01 Spenser Trammell Katelyn Katelyn PA; Reason for ordering with alerts: Clinical consideration given -- 19:56 06/28/2020 Spenser Rubi PAGENERAL ORDERSOrder Description Priority Entered Acknowledged Initialed[Electronically signed by Wilmer Maldonado RN (:08 06/28/2020)][Electronically signed by Spenser Rubi (:04 06/29/2020)][Electronically locked by Wilmer Maldonado RN (:06/28/2020)] Name Value Range Interpretation Code Description Data [place] rce(s) Supporting Document(s) ID Date Data Source [id number] 06/28/2020 07:41:00 PM EDT [facility] 1 Medication Reconciliation Report [facility] Emergency Department [address] [place] [address] Phone #: ext- [phone] 06/28/2020 19:40 Patient: BRUNA LEE Sex: F : 1985 Age: 35yWeight: 72.6 kgHeight/Length: 61 in.BMI: 30.3ALLERGIES: Amoxicillin, Bactrim, Certain antipsycotics, Penicillins, Sulfa AntibioticsThe patient's Home Medications are listed below:CONTINUE TAKING THE FOLLOWING MEDICATIONS: Amitriptyline HCl Oral (50 mg) cloNIDine HCl Oral (0.2 mg), daily, prn Gabapentin Oral (600 mg) Keppra Oral (1000 mg) Latuda Oral (60 mg) Nurontin PriLOSEC Oral Provasac RisperDAL Oral Strattera Oral Suboxone Sublingual 04/05 , daily SUMAtriptan Succinate Oral Unknown stomach pillThe source(s) of the original Home Medication information:Not obtained. 2 Medication Reconciliation Report [facility] Emergency Department [address] [place] [address] Phone #: ext- [phone] 06/28/2020 19:40 Patient: BRUNA LEE Sex: F : 1985 Age: 35yThe following Medications were given to the patient in the Emergency Department:Toradol [IM] IM 60 mg, administered: 20:06/28/2020Tylenol [PO] PO 1000 mg, administered: 20:06/28/2020tivan [PO] PO 1 mg, administered: 20:06/28/2020The following Medications were prescribed to the patient:None. Name Value Range Interpretation Code Description Data [place] rce(s) Supporting Document(s) ID Date Data Source [id number] 06/28/2020 07:41:00 PM EDT [facility] 1 Medication Administration Record [facility] Emergency Department [address] [place] [address] Phone #: ext- [phone] 06/28/2020 19:40 Patient: BRUNA LEE Sex: F : 1985 Age: 35yWeight: 72.6 kgHeight/Length: 61 inBMI: 30.3ALLERGIES: Certain antipsycotics, Bactrim, Amoxicillin, Penicillins, Sulfa Antibiotics Date/Time Medication Administered Medication OrderedGiven TORADOL [IM] (KETOROLAC Toradol IM 60 mg20:06/28/2020 TROMETHAMINE)Jaspal Trammelln, Dose: 60 mg IMGiven TYLENOL [PO] (APAP) Tylenol PO 1000 mg20:01 06/28/2020 Dose: 1000 mg Mariana Velasquez,Given ATIVAN [PO] (LORAZEPAM) Ativan PO 1 mg20:01 06/28/2020 Dose: 1 mg Mariana Velasquez, Name Value Range Interpretation Code Description Data [place] rce(s) Supporting Document(s) ID Date Data Source [id number] 06/28/2020 07:41:00 PM EDT [facility] 1 General Instructions [facility] Emergency Department [address] [place] [address] Phone #: ext- [phone] 06/28/2020 19:40 Patient: BRUNA LEE Sex: F : 1985 Age: 35yEpisodic, poorly controlled tension headache.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 Substance dependenceproblems: dependence on methamphetamine and hallucinogens.INSTRUCTIONSWarnings: Further evaluation is necessary. It is very important to follow up with a healthcare provider.GENERAL WARNINGS: Return or contact your physician immediately if your condition worsens orchanges unexpectedly, if not improving as expected, or if other problems arise. Specifically return if painworsens.Your Current Medications: Your current home medications have been reviewed.CONTINUE TAKING THE FOLLOWING MEDICATIONS:Amitriptyline HCl Oral : Tablet 50 mg.cloNIDine HCl Oral : Tablet 0.2 mg, daily, prn.Gabapentin Oral : Tablet 600 mg.Keppra Oral : Tablet 1000 mg.Latuda Oral : Tablet 60 mg.Nurontin*.PriLOSEC Oral.Provasac*.RisperDAL Oral.Strattera Oral.Suboxone Sublingual : 2/8 daily.SUMAtriptan Succinate Oral.Unknown stomach pill*.Follow-up:Follow up with your doctor tomorrow. Call for the next available appointment. Reason for referral:evaluation and treatmen t. Summary of care provided to patient.Understanding of the discharge instructions verbalized by patient. ADDITIONAL INFORMATIONDrug Abuse 2 General Instructions [facility] Emergency Department [address] [place] [address] Phone #: ext- [phone] 06/28/2020 19:40 Patient: BRUNA LEE Sex: F : 1985 Age: 35yUse and abuse of drugs or medicines may lead to addiction or dependence. Illegal drugs includemarijuana, amphetamines (speed, crank), cocaine, heroin, MDMA, ecstasy, bath salts, PCP,mescaline, and LSD. Medicines include prescription medicines, sedatives, and sleeping pills. Onceaddiction or dependence happens, you are at greater risk for any of the following.Social and personal problems Craving for the drug and not able to stop using even though you think you want to stop (psychological addiction) Drug withdrawal symptoms if you stop taking the drug (physical dependence) Loss of job or your family Arrest, conviction, and fci sentence for possession of an illegal substance or for driving under the influenceHealth problems Strokes, heart attacks, and kidney failure Accidental injuries to yourself or others while you are under the influence of the drug (in a car or at home) HIV infection. This is a much greater risk if you use IV drugs. Skin infections Other sexually transmitted infections (STIs) such as herpes, chlamydia, and gonorrhea Severe and fatal infection of the heart valves if you use IV drugs Hepatitis B or C from overdoseHome careThe following suggestions can help you care for yourself at home: Admit you have a drug problem. Ask for help from your family and close friends. Seek professional help. This could be one-on-one therapy or counseling. There are also outpatient, inpatient, and residential drug treatment programs. Join a self-help group for drug abuse. Stay away from friends who abuse drugs or tempt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 Stomach pill, name unknown Strattera Oral Suboxone Sublingual (8-2 mg), dailyThe source(s) of the original Home Medication information:Not obtained.The following Medications were given to the patient in the Emergency Department:None.The following Medications were prescribed to the patient:None. 2 Medication Reconciliation Report [facility] Emergency Department [address] [place] [address] Phone #: ext [phone] 06/16/2020 16:20 Patient: BRUNA LEE Sex: F : 1985 Age: 34y Name Value Range Interpretation Code Description Data [place] rce(s) Supporting Document(s) ID Date Data Source [id number] 06/16/2020 04:22:00 PM EDT [facility] 1 Medication Administration Record [facility] Emergency Department [address] [place] [address] Phone #: ext- [phone] 06/16/2020 16:20 Patient: BRUNA LEE Sex: F : 1985 Age: 34yWeight: 70.7 kgHeight/Length: 60 inBMI: 30.4ALLERGIES: Penicillins, Sulfa AntibioticsDate/Time Medication Administered Medication Ordered Name Value Range Interpretation Code Description Data [place] rce(s) Supporting Document(s) ID Date Data Source [id number] 06/16/2020 04:22:00 PM EDT [facility] 1 General Instructions [facility] Emergency Department [address] [place] [address] Phone #: ext- [phone] 06/16/2020 16:20 Patient: BRUNA LEE Sex: F : 1985 Age: 34yAcute abdominal pain of undetermined cause.INSTRUCTIONSNo strenuous activity until better. Rest at home for one days.Avoid alcohol and NSAIDS. Examples of NSAIDS include aspirin, ibuprofen (Advil) and naproxen (Aleve).Avoid fatty, fried/greasy, lactose-containing (such as milk, cheese and ice cream), salty and spicy foods.Do not smoke. No alcohol.Warnings: Further evaluation is necessary in order to conduct further tests. It is very important to follow upwith a healthcare provider.GENERAL WARNINGS: Return or contact your physician immediately if your condition worsens orchanges unexpectedly, if not improving as expected, or if other problems arise. Specifically return ifvomiting, bleeding, breathing difficulty or fever.Your Current Medications: Your current home medications have been reviewed.CONTINUE TAKING THE FOLLOWING MEDICATIONS:Amitriptyline HCl Oral.clonazePAM Oral : new rx starts tomorrow.Gabapentin Oral.Keppra Oral.Latuda Oral.PriLOSEC Oral.RisperDAL Oral.Stomach pill, name unknown*.Strattera Oral.Suboxone Sublingual : Film 8-2 mg, daily.Follow-up:Follow up with your healthcare provider in three days even if well. Call for the next available appointment.Reason for referral: evaluation and recommedn GE referral, upper endoscopy if symptoms of abd painpersist.. Summary of care provided to patient via paper.Understanding of the discharge instructions verbalized by patient. Expected course of illness, dischargeinstructions, activity level, follow-up appointment and risks and benefits of treatment reviewed with patientand understanding verbalized. 2 General Instructions [facility] Emergency Department [address] [place] [address] Phone #: ext- [phone] 06/16/2020 16:20 Patient: BRUNA LEE Sex: F : 1985 Age: 34y ADDITIONAL INFORMATIONUnknown Causes of Abdominal Pain (Female)The exact cause of your belly (abdominal) pain is not clear. This does not mean that this is somethingto worry about. Everyone likes to know the exact cause of the problem. But sometimes with bellypain, there is no clear-cut cause, and this could be a good thing. The good news is that yoursymptoms can be treated, and you will feel better.Your condition does not seem serious now. But sometimes the signs of a serious problem may takemore time to appear. For this reason, it is important for you to watch for any new sympt oms,problems, or worsening of your condition.Over the next few days, the abdominal pain may come and go. Or it may be constant. Other commonsymptoms can include nausea and vomiting. Sometimes it can be difficult to tell if you feel nauseous.You may just feel bad and not connect that feeling to nausea. Constipation, diarrhea, and a fever maygo along with the pain.The pain may continue even if treated correctly over the following days. Depending on how things go,sometimes the cause can become clear and may need more or different treatment. Additionalevaluations, medicines, or tests may also be needed. 3 General Instructions [facility] Emergency Department [address] [place] [address] Phone #: ext- [phone] 06/16/2020 16:20 Patient: BRUNA LEE Sex: F : 1985 Age: 34yHome careYour healthcare provider may prescribe medicine for pain, symptoms, or an infection. Follow thehealthcare provider's instructions for taking these medicines.General care Rest as much as you can until your next exam. No strenuous activities. Try to find positions that ease discomfort. A small pillow placed on the abdomen may help relieve pain. Something warm on your abdomen (such as a heating pad) may help, but be careful not to burn yourself.Diet Don't force yourself to eat, especially if having cramps, vomiting, or diarrhea. Water is important so you don't get dehydrated. Soup may also be good. Sports drinks may also help, especially if they are not too acidic. Don't drink sugary drinks as this can make things worse. Take liquids in small amounts. Don't guzzle them. Caffeine sometimes makes the pain and cramping worse. Don't take dairy products if you have vomiting or diarrhea. Don't eat large amounts at a time. Wait a few minutes between bites. Eat a diet low in fiber (called a low-residue diet). Foods allowed include refined breads, white rice, fruit and vegetable juices without pulp, tender meats. These foods will pass more easily through the intestine. Don't have whole- grain foods, whole fruits and vegetables, meats, seeds and nuts, fried or fatty foods, dairy, alcohol and spicy foods until your symptoms go away.Follow- up careFollow up with your healthcare provider, or as advised, if your pain does not begin to improve in thenext 24 hours.Call [phone] if any of these occur: Trouble breathing Confusion 4 General Instructions [facility] Emergency Department [address] [place] [address] Phone #: ext- [phone] 06/16/2020 16:20 Patient: BRUNA LEE Sex: F : 1985 Age: 34y Fainting or loss of consciousness Rapid heart rate SeizureWhen to seek medical adviceCall your healthcare provider right away if any of these occur: Pain gets worse or moves to the right lower abdomen New or worsening vomiting or diarrhea Swelling of the abdomen Unable to pass stool for more than 3 days Fever of 100.4F (38C) or higher, or as directed by your healthcare provider. Blood in vomit or bowel movements (dark red or black color) Yellow color of eyes and skin (jaundice) Weakness, dizziness Chest, arm, back, neck, or jaw pain Unexpected vaginal bleeding or missed period Can't keep down liquids or water and you are getting dehydrated [id number] [employer]. [address] [place] [address]. All rights reserved. This information is not intended as asubstitute for professional medical care. Always follow your healthcare professional's instructions.Trinity DietYour healthcare provider may recommend a bland diet if you have an upset stomach. It consists offoods that are mild and easy to digest. It is better to eat small frequent meals rather than 3 largemeals a day. 5 General Instructions [facility] Emergency Department [address] [place], [place] [id number] Phone #: ext- [phone] 06/16/2020 16:20 Patient: BRUNA LEE Sex: F : 1985 Age: 34yBeveragesOK: Fruit juices, non-caffeinated teas and coffee, non-carbonated watersAvoid: Carbonated beverage, caffeinated tea and coffee, all alcoholic beveragesBreadOK: Refined white, wheat or rye bread, kelly or soda crackers, Mcandrews toast, plain rolls, bagelsAvoid: Whole-grain breadCerealOK: Refined cereals: cooked or ready to eatAvoid: Whole-grain cereals and granola, or those containing bran, seeds or nutsDessertsOK: Peanut butter and all others except those to "avoid"Avoid: Chocolate, cocoa, coconut, popcorn, nuts, seeds, jam, marmaladeFruitsOK: Canned, cooked, frozen or fresh fruits without seeds or tough skinAvoid: Olives, skin and seeds of fruit, dried fruitMeats 6 General Instructions [facility] Emergency Department [address] [place] [address] Phone #: ext- [phone] 06/16/2020 16:20 Patient: BRUNA LEE Sex: F : 1985 Age: 34yOK: All fresh or preserved meat, fish and fowlAvoid: Any that are prepared with those spices to "avoid"Cheese and eggsOK: Eggs, cottage cheese, cream cheese, other cheesesAvoid: All cheeses made with those spices to "avoid"Potatoes and pastaOK: Potato, rice, macaroni, noodles, spaghettiAvoid: NoneSoupsOK: All soups without heavy seasoningAvoid: Soups made with those spices to "avoid"VegetablesOK: Canned, cooked, fresh or frozen mildly flavored vegetables without seeds, skins or coarse fiberAvoid: Vegetables prepared with those spices to "avoid"; skin and seeds of vegetables and those withcoarse fiber, broccoli, cabbage, cauliflower, cucumber, green peppers, and cornSpicesOK: Salt, lemon and limejuice, vinegar, all extracts, kristopher, cinnamon, thyme, mace, allspice, paprikaAvoid: Westerly powder, cloves, pepper, seed spices, garlic, gravy pickles, highly seasoned saladdressings [employer]. [address] [place] [address]. All rights reserved. This information is not intended as asubstitute for professional medical care. Always follow your healthcare professional's instructions.Clear Liquid Diet 7 General Instructions [facility] Emergency Department [address] [place] [address] Phone #: mfn- [phone] 06/16/2020 16:20 Patient: BRUNA LEE Sex: F : 1985 Age: 34yClear liquids are any liquid that you can see through. They are also very easy to digest. You may beput on a clear liquid diet if you are recovering from irritation or infection of the stomach or digestivetract. This diet may also be used before surgery or special procedures such as a colonoscopy. Youshould not be on this diet for more than 3 days. Below are some clear liquids you can have on thisdiet.Adults and children over 2 years oldAdults should drink a total of 2 to 3 quarts of liquid per day. It may be easier to drink small frequentservings rather than a few large ones. Clear liquids can include: Clear fruit juices without pulp. Apple, white grape, and cranberry juice; clear fruit drinks. Beverages. Sport drinks, sodas, mineral water (plain or flavored), tea, black coffee, liquid gelatin (add twice the recommended amount of water). Soups. Clear broth. Desserts. Plain gelatin, frozen fruit juice bars without pulp or fruit pieces.Children under 2 years oldOral rehydration fluids are available at drugstores and most grocery stores. You don't need aprescription. [employer]. [address] [place] [address], [place] [address]. All rights reserved. This information is not intended as asubstitute for professional medical care. Always follow your healthcare professional's instructions. You have been given the following additional information: Abdominal Pain, Unknown Cause, (Female) Diet, Trinity (Adult) Clear Liquid Diet 8 General Instructions [facility] Emergency Department [address] [place] [address] Phone #: ext- [phone] 06/16/2020 16:20 Patient: BRUNA LEE Sex: F : 1985 Age: 34yNo strenuous activity until better. Rest at home for one days.(Electronically signed by RASHID Sanchez 06/16/2020 21:17) Name Value Range Interpretation Code Description Data [place] rce(s) Supporting Document(s) ID Date Data Source [id number] 06/16/2020 04:22:00 PM EDT [facility] 1 Clinical Report - Nurses [facility] Emergency Department [address] [place] [address] Phone #: ext- [phone] 06/16/2020 16:20 Patient: BRUNA LEE Sex: F : 1985 Age: 34yTRIAGEArrived by EMS. Historian: patient. Unaccompanied. ( went to [facility] today for feeling like she had beenpoisoned, she thinks her mother and sister poisoned, feels like she is going down hill with her health, shestates she is suing [facility] because they are not listening to her, taken away from [facility] by polic).Acuity: LEVEL 4.Chief Complaint: BIZARRE BEHAVIOR.Alert.Onset. (1 year but getting worse).Treatment BASE REMOVER:Took Tylenol. (2 hours ago).SEPSIS SCREEN: SIRS SCREEN NEGATIVE. SEPSIS SCREEN NEGATIVE. No suspected or confirmedsigns of infection present. --16:29 06/16/20 Ruthie Espinal R.N.16:21 06/16/20. BP: 119/74. MAP: 89. HR: 87. RR: 16. O2 saturation: 100%. Temp: 98.7 F. Pain levelnow: 12/05. --16:29 06/16/20 Ruthie Espinal R.N.Weight: 70.7 kg stated. Height/Length: 60 inches Per Patient. BMI: 30.4. --16:06/16/20 Ruthie Espinal R.N.MedicationsAmitriptyline HCl Oral. clonazePAM Oral (new rx starts tomorrow). Gabapentin Oral. Keppra Oral. RisperDAL Oral. Stomach pill, name unknown. Strattera Oral. Suboxone Sublingual (Film 8-2 mg), daily. --16:26 06/16/20 Ruthie Espinal R.N. Latuda Oral. --16:26 06/16/20 Ruthie Espinal R.N. PriLOSEC Oral. --16:26 06/16/20 Ruthie Espinal R.N.AllergiesPenicillins.(hives)Sulfa Antibiotics. --16:26 06/16/20 Ruthie Espinal R.N.PROBLEMS:Peptic Ulcer Disease. 2 Clinical Report - Nurses [facility] Emergency Department [address] [place] [address] Phone #: ext- [phone] 06/16/2020 16:20 Patient: BRUNA LEE Sex: F : 1985 Age: 34yGastroesophageal Reflux Disease.ADHD - Attention Deficit Hyperactivity Disorder.Anxiety Reaction.Depression.Seizure Disorder.Strep Throat.Substance Abuse.Schizophrenia.Pharyngitis.Polysubstance abuse.PTSD. --16:27 06/16/20 Ruthie Espinal R.N.ADDITIONAL SURGERIES:Hernia Repair (Umbilical ). --16:27 06/16/20 Ruthie Espinal R.N.HistoryPAST MEDICAL HX: Immunizations: up-to-date. Last normal menstrual period- 2 weeks.SOCIAL HX: IV drug use: heroin, marijuana. No alcohol use. She was offered HIV testing but declinedand hepatitis C testing but declined. She has not traveled outside the [place]Infectious disease exposure: No infectious disease exposure. The patient was exposed to Hepatitis C.Patient is a known carrier of hepatitis and MRSA. Patient is not a known carrier of VRE or CRE.SELF HARM ASSESSMENT: Self harm assessment was performed. The patient answered "no" to thequestion(s) "Have you recently felt down, depressed, or hopeless?", "Do you have thoughts of harming orkilling yourself?", "Do you have a plan for harming or killing yourself?", "Have you recently had thoughtsabout harming or killing others?", "Do you have any dangerous items in your possession?", "Have younoticed less interest or pleasure in doing things?", "Are you here because you tried to hurt yourself?" and"Have you ever tried to hurt yourself before today?".ABUSE ASSESSMENT: Abuse assessment. Abuse denied. No suspicion of abuse. No report of abuse.NUTRITIONAL RISK ASSESSMENT: The nutritional risk assessment revealed no deficiencies.FUNCTIONAL ASSESSMENT: Functional assessment: no impairments noted.LEARNING NEEDS ASSESSMENT: The learning needs assessment revealed no barriers.FALL RISK ASSESSMENT: Fall risk assessment completed. No risk factors identified.SKIN INTEGRITY ASSESSMENT: Skin integrity risk assessment completed. No skin integrity riskidentified. --16:29 06/16/20 Ruthie Espinal R.N.19:07 06/16/20.SOCIAL HX: Smoker - current status unknown. --03:08 06/17/20 Jovan Maldonado R.N. 3 Clinical Report - Nurses [facility] Emergency Department [address] [place] [address] Phone #: ext- [phone] 06/16/2020 16:20 Patient: BRUNA LEE Sex: F : 1985 Age: 34y Interventions Identification band on patient. To treatment room. --16:29 06/16/20 Ruthie Espinal R.N.PHYSICAL ASSESSMENTGENERAL / NEURO / PSYCH: Appears anxious. Patient's mood/affect appears tearful. Poor eyecontact. She appears to have altered thought processes. Patient appears agitated. ( track rodriguez notedon arms).RESPIRATORY: Respirations not labored. Breath sounds within normal limits.CVS: Normal heart rate and rhythm. Capillary refill less than 2 seconds.GI / : Abdomen soft and nontender. Bowel sounds within normal hernadez its.SKIN: Skin intact. Skin is warm and dry. ( ortho boot on right arm). --16:32 06/16/20 Ruthie Espinal R.N.NURSING PROGRESS NOTESPatient gowned. Reassurance given. Two patient identifiers checked. Call light placed in reach. Siderails up x 2. Bed placed in lowest position. Brakes of bed on. Patient ready for evaluation. --16: Ruthie Espinal R.N. 17:16 06/16/20. BP: 90/50 taken on the right arm, manually. MAP: 63. Additional comments: reported to Dr hagen. --17:16 06/16/20 Ruthie Espinal R.N. Charted on wrong patient. --17:42 06/16/20 Ruthie Espinal R.N. EKG time: (17:25 06/16/2020). EKG was performed by a nurse and shown to the PA. --17:32 06/16/20 Ruthie Espinal R.N. 17:32 06/16/2020 One (1) unsuccessful IV access attempt including the right forearm. --17:32 06/16/20 Ruthie Espinal R.N. ( lab unsuccesful with lab draw). --17:43 06/16/20 Ruthie Espinal R.N. 17:28 06/16/20. ( charge nurse and jyotsna clifford notified of unsuccessful iv attempts and blood draw). --17:44 06/16/20 Ruthie Espinal R.N. 17:43 06/16/2020 Two (2) unsuccessful IV access attempts (katherine). --17:43 06/16/20 Ruthie Espinal R.N. ( nora attempting IV start). --17:47 06/16/20 Ruthie Espinal R.N. 17:00 06/16/20. BP: 111/78. MAP: 89. HR: 78. RR: 18. O2 saturation: 100%. --17:47 06/16/20 Ruthie Espinal R.N. late entry - 18:00 06/16/20. ( resting at present). --18:47 06/16/20 Ruthie Espinal R.N. 18:06 06/16/2020 Two (2) unsuccessful IV access attempts including the left foot. --18:06 06/16/20 Nora Moreau, RN 4 Clinical Report - Nurses [facility] Emergency Department [address] [place] [address] Phone #: ext- [phone] 06/16/2020 16:20 Patient: BRUNA LEE Sex: F : 1985 Age: 34y 18:00 06/16/20. BP: 114/54. MAP: 74. HR: 78. RR: 18. O2 saturation: 99%. --18:47 06/16/20 Ruthie Espinal R.N. Care transferred (jovan). --19:04 06/16/20 Ruthie Espinal R.N.DISPOSITION / DISCHARGE Departure time: 20:01 06/16/2020. Condition at departure: improved and stable. Discharge instructions provided and reviewed with the patient. Follow up contact number 3 days with PCP. Patient verbalized understanding. Written instructions provided in Guatemalan. The patient was discharged by the physician temporary administrative assistant. She was discharged home. She left via private vehicle and taxi. --20:18 06/16/20 Jovan Maldonado R.N. 20:00 06/16/20. BP: 121/50. MAP: 73. HR: 83. RR: 16. O2 saturation: 96%. Temp: 97.8 F. Pain level now: 05/05. --20:18 06/16/20 Jovan Maldonado R.N.Locked/Released at 06/17/2020 03:08 by Jovan Maldonado R.N. Name Value Range Interpretation Code Description Data [place] rce(s) Supporting Document(s) ID Date Data Source [id number] 06/16/2020 04:22:00 PM EDT [facility] 1 Clinical Report - Physicians/Mid Levels [facility] Emergency Department [address] [place] [address] Phone #: ext- [phone] 06/16/2020 16:20 Patient: BRUNA LEE Sex: F : 1985 Age: 34y Time Seen: 16:54 06/16/2020. Arrived- By ambulance. Historian- patient and EMS personnel. Disposition decision: 19:29 06/16/2020.HISTORY OF PRESENT ILLNESS Chief Complaint: Feels like she's being poisoned. ( Pt states she thinks her mother and sister poisoned her, maybe put something in her drink yesterday, has had abdominal and chest pain worsening x 24 hrs, States she used heroin yesterday, denies SI, or ingestion of any known toxic substances.). This started yesterday. At its maximum, severity described as 4 / 10. When seen in the E.D., severity described as 5 / 10. Modifying factors. Not worsened by anything. Not relieved by anything. No loss of appetite, weight loss, headache, visual disturbance or fatigue. No muscle aches or weakness. Denies sleep problem. No decreased urine output. Similar symptoms previously. Patient has had similar symptoms several times. Recent medical care: The patient was seen recently by a health care provider (went to [facility] today twice, escorted off property twice per EMS).REVIEW OF SYSTEMSLast normal menstrual period was 2 weeks ago. No fever, sore throat, sinus drainage, nasal congestionor cough. No difficulty breathing, nausea, vomiting, diarrhea or black stools. No bloody stools, chills,difficulty with urination, abnormal bleeding or vaginal discharge. No skin rash, back pain, calf pain,headache or blackouts. No double vision. The patient complains of moderate, aching left-sided chestpain, currently moderate. No radiation, modifying factors or associated symptoms. She has hadmoderate, constant abdominal pain. The pain is described as generalized. No difficulty with ambulation.PAST HISTORYSee nurses notes. Problems: Nausea. N ormal Exam. Peptic Ulcer Disease. Gastroesophageal Reflux Disease. ADHD - Attention Deficit Hyperactivity Disorder. Anxiety Reaction. Depression. Seizure Disorder. Strep Throat. Substance Abuse. Schizophrenia. Pharyngitis. 2 Clinical Report - Physicians/Mid Levels [facility] Emergency Department [address] [place] [address] Phone #: ext- [phone] 06/16/2020 16:20 Patient: BRUNA LEE Sex: F : 1985 Age: 34y Polysubstance abuse. PTSD. Additional Surgeries: Hernia Repair. (Umbilical ). Medications: PriLOSEC Oral. Latuda Oral. Amitriptyline HCl Oral. clonazePAM Oral (new rx starts tomorrow). Gabapentin Oral. Keppra Oral. RisperDAL Oral. Stomach pill, name unknown. Strattera Oral. Suboxone Sublingual (Film 8-2 mg), daily. Allergies: Penicillins.(hives) Sulfa Antibiotics.SOCIAL HISTORYSmoker - current status unknown. Drug use: heroin, marijuana. No alcohol use. No recent travel.ADDITIONAL NOTESThe nursing notes have been reviewed with agreement regarding the chief complaint, HPI, ROS, PMH andpatient medications and allergies.PHYSICAL EXAMVital Signs: 06/16/2020 16:21 BP: 119/74. MAP: 89. HR: 87. RR: 16. O2 saturation: 100%. Temp: 98.7 F.Pain level now: 12/05. Have been reviewed as normal and appear to be correct. Blood pressure normal.Mean arterial pressure- normal. Heart rate normal. Respiratory rate normal. Temperature normal.Oxygen saturation normal.Appearance: Alert. No acute distress.Eyes: Pupils equal, round and reactive to light. Eyes normal inspection.ENT: Ears normal. Nose normal. Pharynx normal.Neck: Normal inspection. Neck supple.CVS: Normal heart rate and rhythm. Heart sounds normal. Pulses normal.Respiratory: No respiratory distress. Painless inspiration. Breath sounds normal. Chest nontender.Abdomen: No visible injury. Soft and nontender. Bowel sounds normal. No organomegaly. No mass.Back: Normal inspection.Skin: Skin warm and dry. Normal skin color. No rash. Normal skin turgor.Extremities: Extremities exhibit normal ROM. No lower extremity edema.Neuro: Oriented X 3. No motor deficit. No sensory deficit. Reflexes normal. 3 Clinical Report - Physicians/Mid Levels [facility] Emergency Department [address] [place] [address] Phone #: ext- [phone] 06/16/2020 16:20 Patient: BRUNA LEE Sex: F : 1985 Age: 34yLABS, X-RAYS, AND EKGEKG: EKG time: 17:37 06/16/2020. No acute process. No acute ischemia. Normal EKG. Rate: 71.Normal P waves. Normal TERESA. Normal QRS complex. Normal axis. Normal ST and T waves, QT andQTc. NSR with sinus arrhythmia. The study has been interpreted contemporaneously by me. The studyhas been independently viewed by me. The EKG appears to be a good tracing. I agree with and confirmthe computer reading of the EKG. Interpretation time: 17:37 06/16/2020.Laboratory Tests: Laboratory tests have been ordered, with results reviewed and considered in themedical decision making process. Beta-HCG, Quant Serum: (JENN: 06/16/2020 18:16) ( MsgRcvd 06/16/2020 19:25) Final results Test Result Flag Units (Reference) HCG QUANT <0.5 mIU/mL Interpretation: Less than 5 mU/mL: Negative 6-10 mU/mL: Borderline (suggest repeat in 48 hours) >10: Positive Approx HCG range (mU/mL) Weeks post LMP 5.4-708 mU/mL 3-4 Weeks 217-93985 mU/mL 5-6 Weeks 4059-477230 mU/mL 7-8 Weeks 03316-119692 mU/mL 9-10 Weeks 76817-51254 mU/mL 12-14 Weeks 26598-28711 mU/mL 15-16 Weeks 8240-32874 mU/mL 17-18 Weeks CBC w Diff: (JENN: 06/16/2020 18:16) ( MsgRcvd 06/16/2020 19:06) Final results Test Result Flag Units (Reference) CBC W/AUTOMATED DIFF COMPLETE BLOOD COUNT WBC 6.8 10/uL (4.2 - 11.0) RBC 4.84 10/uL (4.20 - 5.40) HEMOGLOBIN 14.3 g/dL (12.0 - 16.0) HEMATOCRIT 43.3 % (37.0 - 47.0) MCV 89.5 fL (81.0 - 101) MCH 29.5 pg (27.0 - 34.0) MCHC 33.0 g/dL (31.0 - 36.0) RDW 13.2 % (11.5 - 14.5) PLATELETS 340 10/uL (150 - 450) MPV 9.9 fL (7.4 - 10.4) NEUT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 0.0-3.6 [facility] ID Date Data Source [id number] 12/04/2019 04:47:00 PM EDT [facility] l Name Value Range Interpretation Code Description Data [place] rce(s) Supporting Document(s) SALICYLATE 3.5 mg/dL 2.8-20.0 [facility] ID Date Data Source [id number] 12/04/2019 04:47:00 PM EDT [facility] l Name Value Range Interpretation Code Description Data [place] rce(s) Supporting Document(s) ETHYL ALCOHOL 0.00 % 0-0.01 [facility] ID Date Data Source [id number] 12/04/2019 04:47:00 PM EDT [facility] l Name Value Range Interpretation Code Description Data [place] rce(s) Supporting Document(s) ACETAMINOPHEN LEVEL < 2.0 mcg/mL 10-30 L [facility] ospital ID Date Data Source [id number] 12/04/2019 04:47:00 PM EDT [facility] l Name Value Range Interpretation Code Description Data [place] rce(s) Supporting Document(s) GLUCOSE 81 mg/dL 74-106 [facility] BLOOD UREA NITROGEN 10 mg/dL 7-18 [facility] ital CREATININE 0.7 mg/dL 0.6-1.0 [facility] SODIUM 139 mmol/L 136-145 [facility] POTASSIUM 4.3 mmol/L 3.5-5.1 [facility] CHLORIDE 102 mmol/L 98-107 [facility] CO2 33 mmol/L 21-32 H [facility] CALCIUM 9.2 mg/dL 8.5-10.1 [facility] ANION GAP 4.0 mmol/L 5-12 L [facility] GLOMERULAR FILTRATION RATE >90 mL/min [facility] GFR IS CALCULATED IN mL/min/1.73m2 ZAYNAB L FUNCTION: >90MILDLY DECREASED: 60-89MILDY TO MODERATELY DECREASED: 45-59 MODERATELY TO SEVERELY DECREASED: 30-44SEVERELY DECREASED: 15-29RENAL FAILURE: <15 AST 40 U/L 15-37 H [facility] ALT 27 U/L 12-78 [facility] ALKALINE PHOSPHATASE 68 U/L 46-116 [facility] TOTAL BILIRUBIN 0.3 mg/dL 0.2-1.0 [facility] TOTAL PROTEIN 7.4 g/dl 6.4-8.2 [facility] ALBUMIN 3.9 gm/dL 3.4-5.0 [facility] ID Date Data Source [id number] 12/04/2019 04:46:00 PM EDT [facility] l TSYSORDER [id number] Name Value Range Interpretation Code Description Data [place] rce(s) Supporting Document(s) AMMONIA 39 umol/L 11-32 H [facility] ID Date Data Source [id number] 12/04/2019 04:19:00 PM [facility] l TSYSORDER [id number] Name Value Range Interpretation Code Description Data [facility] rce(s) Supporting Document(s) WHITE BLOOD COUNT 9.8 K/mm3 4.0-10.0 [facility] al RED BLOOD COUNT 4.11 M/mm3 4.00-5.50 [facility] HEMOGLOBIN 12.3 gm/dL 12.0-16.0 [facility] HEMATOCRIT 37.9 % 36.0-48.8 [facility] MEAN CELL VOLUME 92.2 fl 80-96 [facility] MEAN CORPUSCULAR HEMOGLOBIN 29.9 pg 27.0-31.0 [facility] MEAN CORPUSCULAR HGB CONC 32.5 g/dl 32.0-36.0 [facility] RED CELL DISTRIBUTION WIDTH 13.0 % 10.0-14.5 [facility] PLATELET COUNT 368 K/mm3 172-450 [facility] MEAN PLATELET VOLUME 9.5 fl 9.0-13.0 [facility] pital GRAN % 71.0 % 50-80.0 [facility] IG% 0.2 % 0.0-0.2 [facility] LYMPH % 20.5 % 25.0-50.0 L [facility] MONO % 7.1 % 2.0-10.0 [facility] EOS % 1.0 % 0-5.0 [facility] BASO % 0.2 % 0.0-2.0 [facility] GRAN # 7.0 K/mm3 2.0-8.00 [facility] IG# 0.0 K/mm3 0.0-0.2 [facility] LYMPH # 2.0 K/mm3 1.0-5.0 [facility] MONO # 0.7 K/mm3 0.10-1.20 [facility] EOS # 0.1 K/mm3 0.0-0.5 [facility] BASO # 0.0 K/mm3 0.0-0.2 [facility] ID Date Data Source [id number] 12/11/2019 08:09:00 PM EDT [facility] l Name Value Range Interpretation Code Description Data [place] rce(s) Supporting Document(s) LEVETIRACETAM, S <1.0 ug/mL 10.0-40.0 L [facility] Verified by repeat analysisThis test was developed and its performance characteristicsdetermined by [facility]. It has not been cleared orapproved by the Food and Drug Administration.Performed at: [address] [id number] Director: Robyn Julio MD, Phone: [phone] ID Date Data Source [id number] 12/11/2019 08:05:00 PM EDT [facility] Name Value Range Interpretation Code Description Data [place] rce(s) Supporting Document(s) Levetiracetam, S 10.0-40.0 Below low normal [facility] Verified by repeat analysisThis test was developed and its performance characteristicsdetermined by [facility]. It has not been cleared or approvedby the Food and Drug Administration. ID Date Data Source [id number] 12/04/2019 05:04:00 PM EDT [facility] [id number] Name Value Range Interpretation Code Description Data [place] rce(s) Supporting Document(s) DDIMER 0.74 mg/LFEU 0.19-0.60 H [facility] ID Date Data Source [id number] 12/04/2019 12:00:00 AM EDT [facility] l Name Value Range Interpretation Code Description Data [place] rce(s) Supporting Document(s) 2019 Novel Coronavirus RNA [facility] This lab was ordered by [facility] L aboratory and reported by [facility]. ID Date Data Source [id number] 11/07/2019 12:19:00 AM EDT [facility] 1 OrderSheet [facility] Emergency Department [address] [place] [address] Phone #: ext- [phone] 11/07/2019 00:19 Patient: BRUNA LEE Sex: F : 1985 Age: 34yWEIGHT:78.9 kg (S)ALLERGIES: Penicillins, Sulfa AntibioticsCHIEF COMPLAINT: nauseaDIAGNOSIS: Drug abuse, Nausea, Normal Exam, AnxietyLAB ORDERSOrder Description Priority Entered Acknowledged InitialedCBC w Diff STAT 01:11/07/2019 Ack'd: 01:22 Jovan 02:24 Evonne Iyer R.N.N. MNeo;CMP STAT 01:11/07/2019 Ack'd: 01:22 Jovan 02:24 Jovan Evonne Easton R.N. RJayroN. MNeo;HCG Serum Qual STAT 01:11/07/2019 Ack'd: 01:22 Jovan 02:24 Evonne Iyer R.N. RJayroN. MNeo;CPK STAT 01:11/07/2019 Ack'd: 01:22 Jovan 02:24 Jovan DarrylEvonne Enriquez R.N. R.N. MJayroD.;Urine Drug Screen STAT 01:11/07/2019 Ack'd: 01:22 Jovan 02:24 Jovan DarrylEvonne Enriquez R.N. R.N. M.D.;Urinalysis (Clean STAT 01:11/07/2019 Ack'd: 01:22 Jovan 02:24 Jovan BlairCatch) Evonne Hagen R.N., R.N., M.D.;DIAGNOSTIC STUDY ORDERSOrder Description Priority Entered Acknowledged InitialedMEDICATION/IV/DRIP/FLUID ORDERSOrder Description Priority Entered Acknowledged InitialedNS IV 1000 mL 01:01 11/07/2019 Ack'd: 01:22 Jovan 02:26 Jovan BlairBolus: : Bolus 1000 Evonne Hagen R.N.NJayromL (X1) Jeremie;Zofran 4 mg IVP X 1 01:01 11/07/2019 Ack'd: 01:22 Jovan 02:27 Jovan Blairdose: 4 mg (NOW Evonne Hagen R.N. RRandyx1) Jeremie; 2 OrderSheet [facility] Emerg ency Department [address] [place] [address] Phone #: ext- [phone] 11/07/2019 00:19 Patient: BRUNA LEE Sex: F : 1985 Age: 34yGENERAL ORDERSOrder Description Priority Entered Acknowledged Initialed[Electronically signed by Mara Gonzalez R.N. (04:11/07/2019)][Electronically signed by Evonne Hagen M.D. (05:23 11/07/2019)][Electronically locked by Mara Gonzalez R.N. (04:11/07/2019)] Name Value Range Interpretation Code Description Data [place] rce(s) Supporting Document(s) ID Date Data Source [id number] 11/07/2019 12:19:00 AM EDT [facility] 1 Medication Reconciliation Report [facility] Emergency Department [address] [place] [address] Phone #: ext- [phone] 11/07/2019 00:19 Patient: [...] rce(s) Supporting Document(s) ID Date Data Source [id number] 11/07/2019 12:19:00 AM EDT [facility] 1 Medication Administration Record [facility] Emergency Department [address] [place] [address] Phone #: ext- [phone] 11/07/2019 00:19 Patient: BRUNA LEE Sex: F : 1985 Age: 34yWeight: 78.9 kgHeight/Length: 60 inBMI: 34ALLERGIES: Penicillins, Sulfa Antibiotics Date/Time Medication Administered Medication OrderedStart IV NS NS IV 1000 mL Bolus: : Bolus [id number] 11/07/2019 Dose: IV Fluids mL (X1)Jovan Maldonado R.N. Rate: 999 mL/hr---- Dispensed: 1000 mL bagStop Site: #1 left wrist03:55 11/07/2019Mara Gonzalez R.N.Given ZOFRAN [IVP] (ONDANSETRON HCL) Zofran 4 mg IVP X 1 dose: 4 mg02:22 11/07/2019 Dose: 4 mg IVP (NOW x1)Jovan Maldonado R.N. Site: #1 left wrist Name Value Range Interpretation Code Description Data [place] rce(s) Supporting Document(s) ID Date Data Source [id number] 11/07/2019 12:19:00 AM EDT [facility] 1 General Instructions [facility] Emergency Department [address] [place] [address] Phone #: ext- [phone] 11/07/2019 00:19 Patient: [...] to plan of care. 2 General Instructions [facility] Emergency Department [address] [place] [address] Phone #: ext- [phone] 11/07/2019 00:19 Patient: [...] Tiredness Inability to sleep 3 General Instructions [facility] Emergency Department [address] [place] [address] Phone #: ext- [phone] 11/07/2019 00:19 Patient: [...] help you manage stress. 4 General Instructions [facility] Emergency Department [address] [place] [address] Phone #: ext- [phone] 11/07/2019 00:19 Patient: [...] relieved by rest and mild pain reliever [phone] [employer]. [address] [place] [address]. All rights reserved. This information is not intended as asubstitute for professional medical care. Always follow your healthcare professional's instructions. You have been given the following additional information: Anxiety Reaction(Electronically signed by Evonne Hagen M.D. 11/07/2019 05:23) Name Value Range Interpretation Code Description Data [place] rce(s) Supporting Document(s) ID Date Data Source [id number] 11/07/2019 12:19:00 AM EDT [facility] 1 Clinical Report - Nurses [facility] Emergency Department [address] [place] [address] Phone #: ext- [phone] 11/07/2019 00:19 Patient: BRUNA LEE Sex: F : 1985 Age: 34yTRIAGEHistorian: EMS and patient.Triage time: 00:24 11/07/2019.Chief Complaint: NAUSEA and ("face swelling").Onset. (states that it has been going on all day.). ( states that she has been sleeping a lot and used Molly2 days ago. No Meth in 2 weeks.).Treatment BASE REMOVER:(Took her normal medications today.). --00:27 11/07/19 Jovan Maldonado R.N.Acuity: LEVEL 3.( Whole body aches 12/05.).SEPSIS SCREEN: SIRS Screen: heart rate greater than 90. Sepsis Screen negative. No suspected orconfirmed signs of infection present. --00:35 11/07/19 Jovan Maldonado R.N.00:33 11/07/19. BP: 94/68. MAP: 76. HR: 112. RR: 16. O2 saturation: 98%. Temp: 98.1 F. Pain level now:12/05. --00:35 11/07/19 Jvoan Maldonado R.N.Weight: 78.9 kg stated. Height/Length: 60 inches Per Patient. BMI: 34. --00:24 11/07/19 Jovan Maldonado R.N.MedicationsAmitriptyline HCl Oral. Gabapentin Oral. Keppra Oral. RisperDAL Oral. Stomach pill, name unknown. Strattera Oral. Suboxone Sublingual (Film 8-2 mg), daily. --00:28 11/07/19 Jovan Maldonado R.N. clonazePAM Oral (new rx starts tomorrow). --00:28 11/07/19 Carlos Maldonado R.N.AllergiesPenicillins.(hives)Sulfa Antibiotics. --00:28 11/07/19 Jovan Maldonado R.N.HistoryPAST MEDICAL HX: Gastroesophageal reflux disease. Peptic ulcer disease. Last normal menstrualperiod unknown- last month. 2 Clinical Report - Nurses [facility] Emergency Department [address] [place] [address] Phone #: ext- [phone] 11/07/2019 00:19 Patient: [...] light in reach of patient. --00:33 11/07/19 Jovan Maldonado R.N.PHYSICAL ASSESSMENTTo room via stretcher.GENERAL / NEURO / PSYCH: Alert. Oriented X 4. Appears anxious. ( appears drowsy. Unkempt.).GI / : The patient has had nausea. Obesity. No blood in the stool. ( has urinary pressure. Last BMa few hrs ago, soft.).SKIN: ( Bruises, track rodriguez on both arms.). --00:37 11/07/19 Jovan Maldonado R.N.NURSING PROGRESS NOTESReassurance given. Call light placed in reach. Bed placed in lowest position. Brakes of bed on.--00:36 11/07/19 Jovan Maldonado R.N. 02:15 11/07/2019 Site #1 started via IV in the left wrist with an 20g angiocath; three attempts. Blood drawn: rainbow set. Labeled in the presence of the patient. Saline lock flushed with 10 mL saline (samples hand carried to the lab and given to lab LW). --02:11/07/19 Jovan Maldonado R.N. 02:22 11/07/2019 Zofran (Ondansetron HCl) IVP 4 mg given over 2 minute(s) via site #1. Allergies verified and confirmed 5 rights. IV patency established. IV site checked: no pain, redness, or swelling. IV flushed thoroughly pre- and post-medication administration. IVP given by RN. Information reviewed with patient including reason for taking this medication. Verbalizes understanding. --02:11/07/19 Jovan Maldonado R.N. 02:11/07/2019 Started bag #1 1000 mL IV Fluids IV NS; at 999 mL/hr via site #1 via IV pump. Allergies 3 Clinical Report - Nurses [facility] Emergency Department [address] [place] [address] Phone #: [phone] eld- [phone] 11/07/2019 00:19 Patient: BRUNA LEE Sex: F : 1985 Age: 34y verified and confirmed 5 rights. IV patency established. IV site checked: no pain, redness, or swelling. IV flushed thoroughly pre- and post-medication administration. Information reviewed with patient including reason for taking this medication. Verbalizes understanding. --02:11/07/19 Jovan Maldonado R.N. Checked patient name and birthdate: patient confirmed. Clean catch urine collected with return of yellow-colored bruna-colored clear urine; sample sent to lab for urinalysis and drug screen. Specimen labeled in the presence of the patient. --02:11/07/19 Jovan Maldonado R.N. The patient is calm and resting quietly. ( Mccracken provided. Reassurance given to pt. Lights dimmed. Call light at hand.). --02:28 11/07/19 Jovan Maldonado R.N. 03:55 11/07/2019 IV Fluids IV [...] Patient verbalized understanding. Written instructions provided in [place]alan. The patient was discharged by the physician. [...] rce(s) Supporting Document(s) ID Date Data Source [id number] 11/07/2019 12:19:00 AM EDT [facility] 1 Clinical Report - Physicians/Mid Levels [facility] Emergency Department [address] [place] [address] Phone #: ext- [phone] 11/07/2019 00:19 Patient: [...] no Meth in over 2 weeks; woke BASE REMOVER w face swelling and nausea, no other Sx, no withdrawal, ROS otw neg.; pt known at [facility] for multiple ER visits for [...] Repair. 2 Clinical Report - Physicians/Mid Levels [facility] Emergency Department [address] [place] [address] Phone #: ext- [phone] 11/07/2019 00:19 Patient: BRUNA LEE Sex: F [...] (Reference) 3 Clinical Report - Physicians/Mid Levels [facility] Emergency Department [address] [place] [address] Phone #: ext- [phone] 11/07/2019 00:19 Patient: BRUNA LEE [facility]#: [id number] Sex: F : 1985 Age: 34y CBC [...] Male GFR Interprentation 20-49 yrs >60 mL/min Dzlyhp58-14 yrs >56 mL/min Normal 60- 69 yrs >49 mL/min Normal 70-79yrs>42 mL/min Normal 80 and above >35 mL/min Normal Female GFRInterpretation 20-39 yrs >60 mL/min Normal 40-49 yrs >58 mL/minNormal 50-59 yrs >51 mL/min Normal 60-69 yrs >45 mL/min Normal 4 Clinical Report - Physicians/Mid Levels [facility] Emergency Department [address] [place] [address] Phone #: ext- [phone] 11/07/2019 00:19 Patient: BRUNA LEE Sex: F : 1985 Age: 06d02-78 yrs >39 mL/min Normal 80 and above >32 mL/min NormalBeta-HCG, Qual Serum: (JENN: 11/07/2019 02:15) ( [facility] 11/07/2019 03:20) Final results Test Result Flag Units (Reference) HCG SERUM QUAL NEGATIVE (NORMAL: NEGAT HCG SERUM QL REENTER NEGATIVE (NORMAL: NEGAT { KIT LOT # [id number] ){ KIT EXP [id number] ){ PROCEDURAL CONTROL VALID)CPK: (JENN: 11/07/2019 02:15) ( [facility] 11/07/2019 03:15) Final results Test Result Flag Units (Reference) CPK 313 H U/L (30 - 170)Drug Screen-Urine: (JENN: 11/07/2019 02:00) ( [facility] 11/07/2019 03:15) Final results Test Result Flag [...] PRESUMPTIVE POSITIVE CONFIRMATION WILL BE PERFORMED AT [facility].Urinalysis: (JENN: 11/07/2019 02:00) ( [facility] 11/07/2019 02:28) Final results Test Result [...] Indicate 5 Clinical Report - Physicians/Mid Levels [facility] Emergency Department [address] [place] [address] Phone #: ext- [phone] 11/07/2019 00:19 Patient: [...] was requested by: Evonne Hagen Reference #: [id number] Others' Prescriptions Patient Name: Bruna LeeBirth Date: 1985 Address: [address] [place] [id number]: Female Rx Written Rx Dispensed Drug Quantity [...] table. 6 Clinical Report - Physicians/Mid Levels [facility] Emergency Department [address] [place] [address] Phone #: ext- [phone] 11/07/2019 00:19 [id number] Sex: F : 1985 Age: 34y 03:19 [...] Oral. 7 Clinical Report - Physicians/Mid Levels [facility] Emergency Department [address] [place] [address] Phone #: ext- [phone] 11/07/2019 00:19 Patient: [...] rce(s) Supporting Document(s) ID Date Data Source [id number] 11/07/2019 03:20:00 AM EDT [facility] Name Value Range Interpretation Code Description Data [place] rce(s) Supporting Document(s) HCG SERUM QUAL NEGATIVE NORMAL: NEGATIVE [facility] HCG SERUM QL REENTER NEGATIVE NORMAL: NEGATIVE [facility] { KIT LOT # [id number] ){ KIT EXP DATE 12-08-20 ){ PROCEDURAL CONTROL VALID ) ID Date Data Source [id number] 11/07/2019 03:15:00 AM EDT [facility] Name Value Range Interpretation Code Description Data [place] rce(s) Supporting Document(s) Creatine kinase [Enzymatic activity/volume] in Serum or Plasma 3 13 U/L 30 - 170 H [facility] ID Date Data Source [id number] 11/07/2019 03:14:00 AM EDT [facility] Name Value Range Interpretation Code Description Data [place] rce(s) Supporting Document(s) COMPREHENSIVE METABOLIC PANEL [facility] COMPREHENSIVE METABOLIC PANEL Sodium [Moles/volume] in Serum or Plasma 140 mEq/L 134 - 153 [facility] Potassium [Moles/volume] in Serum or Plasma 3.8 mEq/L 3.6 - 5.0 [facility] Chloride [Moles/volume] in Serum or Plasma 100 mEq/L 98 - 107 [facility] Carbon dioxide, total [Moles/volume] in Serum or Plasma 30 MEQ/L 22 - 30 [facility] Glucose [Mass/volume] in Serum or Plasma 98 MG/DL 65 - 110 [facility] BUN 14 MG/DL 7 - 21 [facility] al Creatinine [Mass/volume] in Serum or Plasma 0.7 MG/DL 0.7 - 1.5 [facility] BUN/CREAT 20 8 - 27 [facility] Protein [Mass/volume] in Serum or Plasma 5.9 G/DL 6.3 - 8.2 L [facility] Albumin [Mass/volume] in Serum or Plasma 3.6 G/DL 3.9 - 5.0 L [facility] Globulin [Mass/volume] in Serum by calculation 2.3 GM/DL 2.4 - 3.2 L [facility] A/G RATIO 1.6 0.8 - 2.0 [facility] Calcium [Mass/volume] in Serum or Plasma 9.2 MG/DL 8.4 - 10.2 [facility] Bilirubin.total [Mass/volume] in Serum or Plasma <0.7 MG/DL 0.2 - 1.3 [facility] Alkaline phosphatase [Enzymatic activity/volume] in Serum or Plasma 62 U/L 38 - 126 [facility] Aspartate aminotransferase [Enzymatic activity/volume] in Serum or Plasma 302 U/L 5 - 40 H [facility] Alanine aminotransferase [Enzymatic activity/volume] in Seru m or Plasma 125 U/L 7 - 56 H [facility] Anion gap 3 in Serum or Plasma 10.0 mmol/L 8.0 - 16.0 [facility] AGE 34 yrs [facility] al NON-AA GFR >60 mL/min [facility] ital AFR AMER GFR >60 mL/min [place] [...] >32 mL/min Normal ID Date Data Source [id number] 11/07/2019 02:27:00 AM EDT [facility] Name Value Range Interpretation Code Description Data [place] rce(s) Supporting Document(s) CBC W/AUTOMATED DIFF [facility] COMPLETE BLOOD COUNT Leukocytes [#/volume] in Blood by Automated count 8.3 10^3/uL 4.2 - 1 1.0 [facility] Erythrocytes [#/volume] in Blood by Automated count 3.87 10^6/uL 4. 20 - 5.40 L [facility] Hemoglobin [Mass/volume] in Blood 11.6 g/dL 12.0 - 16.0 L [facility] Hematocrit [Volume Fraction] of Blood by Automated count 36.0 % 3 7.0 - 47.0 L [facility] Erythrocyte mean corpuscular volume [Entitic volume] by Auto mated count 93.0 fL 81.0 - 101 [facility] Erythrocyte mean corpuscular hemoglobin [Entitic mass] by Automated count 30.0 pg 27.0 - 34.0 [facility] Erythrocyte mean corpuscular hemoglobin concentration [Mass/volume] by Automated count 32.2 g/dL 31.0 - 36.0 [facility] Erythrocyte distribution width [Ratio] by Automated count 13.3 % 11.5 - 14.5 [facility] Platelets [#/volume] in Blood by Automated count 271 10^3/uL 150 - 45 0 [facility] Platelet mean volume [Entitic volume] in Blood by Automated count 9.5 fL 7.4 - 10.4 [facility] Neutrophils/100 leukocytes in Blood by Automated count 82.6 % 37. 0 - 80.0 H [facility] Lymphocytes/100 leukocytes in Blood by Manual count 14.3 % 25.0 - 40.0 L [facility] Monocytes/100 leukocytes in Blood by Automated count 1.6 % 3.0 - 8.0 L [facility] Eosinophils/100 leukocytes in Blood by Automated count 0.8 % 0.0 - 7.0 [facility] Basophils/100 leukocytes in Blood by Automated count 0.2 % 0.0 - 2.5 [facility] %IG 0.5 % 0.0 - 0.0 H [facility] Hospit al %NRBC 0.0 % 0.0 - 0.0 [facility] al Neutrophils [#/volume] in Blood by Automated count 6.85 10^3/uL 2.00 - 6.90 [facility] Lymphocytes [#/volume] in Blood by Automated count 1.19 10^3/uL 0.60 - 3.40 [facility] Monocytes [#/volume] in Blood by Automated count 0.13 10^3/uL 0.00 - 0.90 [facility] Eosinophils [#/volume] in Blood by Automated count 0.07 10^3/uL 0.00 - 0.70 [facility] Basophils [#/volume] in Blood by Automated count 0.02 10^3/uL 0.00 - 0.20 [facility] #IG 0.04 10^3/uL 0.00 - 0.10 [facility] H ospital #NRBC 0.00 10^3/uL 0.00 - 0.00 [facility] ospital MANUAL DIFF NOT INDICATED [facility] RBC MORPH NOT INDICATED [facility] Ho spital ID Date Data Source [id number] 11/07/2019 03:14:00 AM EDT [facility] Name Value Range Interpretation Code Description Data [place] rce(s) Supporting Document(s) DRUG SCREEN URINE [facility] URINE DRUG SCREEN Amphetamine [Presence] in Urine by Screen method PRESUMP POS ZAYNAB L: NEGATIVE [facility] BARBITURATES NEGATIVE NORMAL: NEGATIVE [facility] BENZO NEGATIVE NORMAL: NEGATIVE [facility] COCAINE NEGATIVE NORMAL: NEGATIVE [facility] Tetrahydrocannabinol [Presence] in Urine NEGATIVE NORMAL: NEGATIVE [facility] OPIATES NEGATIVE NORMAL: NEGATIVE [facility] Phencyclidine [Presence] in Urine by Screen method NEGATIVE NOR MAL: NEGATIVE [facility] \\BLDo\\URINE DRUG SCR EEN INTERPRETATION\\BLDx\\ THE CUTOFFF LEVELS FOR DETECTION ARE FOLLOWS: AMPHETAMINES 1000 ng/ml BARBITUARATES 200 ng/ml BENZODIAZEPINES 100 ng/ml THC 50 ng/ml PHENCYCLIDINE 25 ng/ml OPIATES 300 ng/ml COCAINE 300 ng/ml ALL POSITIVES ARE CONSIDERED PRESUMPTIVE POSITIVE CONFIRMATION WILL BE PERFORMED AT PHYSICIAN REQUEST. ID Date Data Source [id number] 11/07/2019 02:27:00 AM EDT [facility] Name Value Range Interpretation Code Description Data [place] rce(s) Supporting Document(s) [facility] URINALYSIS SOURCE R [facility] al COLOR yellow NORMAL: Yellow [facility] ospital CLARITY clear NORMAL: Clear [facility] Ho spital Specific gravity of Urine by Test strip 1.020 1.001 - 1.030 [facility] pH 6 5 - 9 [facility] al Glucose [Mass/volume] in Urine by Test strip NORM NORMAL: Negat [facility] Bilirubin.total [Presence] in Urine by Test strip NEG NORMAL: Negative [facility] Ketones [Presence] in Urine by Test strip NEG NORMAL: Negative [facility] Protein [Mass/volume] in Urine by Test strip NEG NORMAL: Negat [facility] Nitrite [Presence] in Urine by Test strip NEG NORMAL: Negative [facility] BLOOD NEG NORMAL: Negative [facility] Leukocyte esterase [Presence] in Urine by Test strip NEG ZAYNAB L: Negative [facility] Urobilinogen [Mass/volume] in Urine by Test strip 1 less kenna n 1.0 mg/dL [facility] MICROSCOPIC Not Indicate [facility]spital ID Date Data Source [id number] 10/30/2019 10:27:00 AM EDT [facility] Name Value Range Interpretation Code Description Data [place] rce(s) Supporting Document(s) BG FASTING 132 mg/dL 70-100 H [facility] TSH 0.526 microintl units/mL 0.358-3.740 N [facility] ID Date Data Source [id number] 10/30/2019 10:27:00 AM EDT [facility] Name Value Range Interpretation Code Description Data [place] rce(s) Supporting Document(s) HCT 37.6 % 36.0-47.0 N [facility] HGB 11.8 g/dL 12.0-15.5 L [facility] MCH 31.4 G/DL pg 32.0-36.5 L [facility] MCHC 29.9 PG % 27.0-33.0 N [facility] PLATELETS 209 10 10*3/mm3 150-450 N [facility] RBC 3.94 10 10*6/mm3 4.00-5.40 L [facility] RDW 12.6 % 11.5-14.5 N [facility] WBC TOTAL 4.5 4.0-10.0 N [facility] Procedure Social History Code Duration Value Status Description Data Source(s ) 11/05/2020 12:00:00 AM EDT Heavy cigarette smoker (20- 39 cigs/day) completed Heavy cigarette smoker (20-39 cigs/day) [facility] ([facility]) Smoking 11/05/2020 12:00:00 AM EDT Heavy tobacco smoker comple keven Heavy tobacco smoker [facility] ([facility]) Alcohol intake 09/24/2020 12:00:00 AM EDT Ex-drinker (finding) comp leted Ex- drinker (finding) [facility] Tobacco use and exposure 09/24/2020 12:00:00 AM EDT Never used co mpleted Never used [facility] Cigarettes smoked current (pack per day) - Reported 09/25/19 12:00:00 AM EDT UNK completed [facility] Smoking 09/24/2020 12:00:00 AM EDT Smoker, current status unkn own completed Smoker, current status unknown [facility] Alcohol intake 08/06/2020 12:00:00 AM EDT Ex-drinker (finding) comp leted Ex- drinker (finding) [facility] Smoking 07/22/2020 12:00:00 AM EDT Current Smoker completed Curre nt Smoker eCW1 ([facility]) Smoking 07/22/2020 12:00:00 AM EDT Current Smoker completed Curre nt Smoker eCW1 ([facility]) Smoking 07/22/2020 12:00:00 AM EDT Current Smoker completed Curre nt Smoker eCW1 ([facility]) Smoking 06/14/2020 12:00:00 AM EDT Current Smoker completed Curre nt Smoker eCW1 ([facility]) Smoking 06/14/2020 12:00:00 AM EDT Current Smoker completed Curre nt Smoker eCW1 ([facility]) Smoking 06/14/2020 12:00:00 AM EDT Current Smoker completed Curre nt Smoker eCW1 ([facility]) Smoking 06/14/2020 12:00:00 AM EDT Current Smoker completed Curre nt Smoker eCW1 ([facility]) Smoking 03/30/2020 12:00:00 AM EST Current Smoker completed Curre nt Smoker eCW1 ([facility]) Smoking 03/30/2020 12:00:00 AM EST Current Smoker completed Curre nt Smoker eCW1 ([facility]) Smoking 03/30/2020 12:00:00 AM EST Current Smoker completed Curre nt Smoker eCW1 ([facility]) Smoking 03/30/2020 12:00:00 AM EST Current Smoker completed Curre nt Smoker eCW1 ([facility]) Smoking 03/30/2020 12:00:00 AM EST Current Smoker completed Curre nt Smoker eCW1 ([facility]) Smoking 03/30/2020 12:00:00 AM EST Current Smoker completed Curre nt Smoker eCW1 ([facility]) Smoking 03/30/2020 12:00:00 AM EST Current Smoker completed Curre nt Smoker eCW1 ([facility]) Smoking 03/30/2020 12:00:00 AM EST Current Smoker completed Curre nt Smoker eCW1 ([facility]) Smoking 03/30/2020 12:00:00 AM EST Current Smoker completed Curre nt Smoker eCW1 ([facility]) Smoking 03/30/2020 12:00:00 AM EST Current Smoker completed Curre nt Smoker eCW1 ([facility]) Smoking 03/30/2020 12:00:00 AM EST Current Smoker completed Curre nt Smoker eCW1 ([facility]) Smoking 03/30/2020 12:00:00 AM EST Current Smoker completed Curre nt Smoker eCW1 ([facility]) Smoking 03/30/2020 12:00:00 AM EST Current Smoker completed Curre nt Smoker eCW1 ([facility]) Smoking 03/30/2020 12:00:00 AM EST Current Smoker completed Curre nt Smoker eCW1 ([facility]) Smoking 03/30/2020 12:00:00 AM EST Current Smoker completed Curre nt Smoker eCW1 ([facility]) Smoking 03/30/2020 12:00:00 AM EST Current Smoker completed Curre nt Smoker eCW1 ([facility]) Smoking 03/30/2020 12:00:00 AM EST Current Smoker completed Curre nt Smoker eCW1 ([facility]) Smoking 03/01/2020 12:00:00 AM EST Current Smoker completed Curre nt Smoker eCW1 ([facility]) Smoking 03/01/2020 12:00:00 AM EST Current Smoker completed Curre nt Smoker eCW1 ([facility]) Smoking 03/01/2020 12:00:00 AM EST Current Smoker completed Curre nt Smoker eCW1 ([facility]) Smoking 02/18/2020 12:00:00 AM EST Current Smoker completed Curre nt Smoker eCW1 ([facility]) Smoking 12/24/2019 12:00:00 AM EDT Current Smoker completed Curre nt Smoker eCW1 ([facility]) Smoking 12/24/2019 12:00:00 AM EDT Current Smoker completed Curre nt Smoker eCW1 ([facility]) Smoking 12/24/2019 12:00:00 AM EDT Current Smoker completed Curre nt Smoker eCW1 ([facility]) Smoking 12/24/2019 12:00:00 AM EDT Current Smoker completed Curre nt Smoker eCW1 ([facility]) Smoking 12/24/2019 12:00:00 AM EDT Current Smoker completed Curre nt Smoker eCW1 ([facility]) Smoking 12/24/2019 12:00:00 AM EDT Current Smoker completed Curre nt Smoker eCW1 ([facility]) Smoking 12/24/2019 12:00:00 AM EDT Current Smoker completed Curre nt Smoker eCW1 ([facility]) Smoking 10/31/2019 12:00:00 AM EDT Current Smoker completed Curre nt Smoker eCW1 ([facility]) Smoking 10/31/2019 12:00:00 AM EDT Current Smoker completed Curre nt Smoker eCW1 ([facility]) Smoking 10/31/2019 12:00:00 AM EDT Current Smoker completed Curre nt Smoker eCW1 ([facility]) Vital Signs ID Date Data Source UNK Name Value Range Interpretation Code Description Data Source(s) Diastolic blood pressure 56 mm[Hg] 56 mm[Hg] MATIAS ([facility]) Body height 61 [in_i] 61 [in_i] MATIAS ([facility]) Body mass index (BMI) [Ratio] 31.5 kg/m2 31.5 k g/m2 MATIAS ([facility]) Systolic blood pressure 83 mm[Hg] 83 mm[Hg] A THENA ([facility]) Body weight 2664 [oz_av] 2664 [oz_av] MATIAS ([facility]) Systolic blood pressure 116 mm[Hg] 116 mm[Hg] N [facility]Gen ([facility]) Body weight 74.026 kg 74.026 kg [facility] ([facility]) Body height 152.40 cm 152.40 cm [facility] ([facility]) Diastolic blood pressure 76 mm[Hg] 76 mm[Hg] [facility] ([facility]) Body mass index (BMI) [Ratio] 31.87 kg/m2 Overweight 31.87 kg/m2 [facility] ([facility]) Body height 60.0 [in_i] 60.0 [in_i] eCW1 ([facility]) Body weight 183.0 [lb_av] 183.0 [lb_av] eCW1 ([facility]) Body mass index (BMI) [Ratio] 35.74 kg/m2 35.74 kg/m2 eCW1 ([facility]) Heart rate 119 /min 119 /min eCW1 ([facility]) Respiratory rate 18 /min 18 /min eCW1 ([facility]) Oxygen saturation in Arterial blood by Pulse oximetry 98 % 98 % eCW1 ([facility]) Body height 60 [in_i] 60 [in_i] eCW1 ([facility]) Body weight 180.6 [lb_av] 180.6 [lb_av] eCW1 ([facility]) Body mass index (BMI) [Ratio] 35.27 kg/m2 35.27 kg/m2 eCW1 ([facility]) Heart rate 93 /min 93 /min eCW1 ([facility]) Respiratory rate 18 /min 18 /min eCW1 ([facility]) Oxygen saturation in Arterial blood by Pulse oximetry 99 % 99 % eCW1 ([facility]) Body height 60 [in_i] 60 [in_i] eCW1 ([facility]) Body weight 186.8 [lb_av] 186.8 [lb_av] eCW1 ([facility]) Body mass index (BMI) [Ratio] 36.48 kg/m2 36.48 kg/m2 eCW1 ([facility]) Heart rate 89 /min 89 /min eCW1 ([facility]) Respiratory rate 18 /min 18 /min eCW1 ([facility]) Oxygen saturation in Arterial blood by Pulse oximetry 97 % 97 % eCW1 ([facility]) Body height 60 [in_i] 60 [in_i] eCW1 ([facility]) Body weight 164.4 [lb_av] 164.4 [lb_av] eCW1 ([facility]) Body mass index (BMI) [Ratio] 32.10 kg/m2 32.10 kg/m2 eCW1 ([facility]) Body temperature 98.0 [degF] 98.0 [degF] eCW1 ( [facility]) Heart rate 86 /min 86 /min eCW1 ([facility]) Respiratory rate 18 /min 18 /min eCW1 ([facility]) Oxygen saturation in Arterial blood by Pulse oximetry 98 % 98 % eCW1 ([facility]) Body height 60 [in_i] 60 [in_i] eCW1 ([facility]) Body weight 157.2 [lb_av] 157.2 [lb_av] eCW1 ([facility]) Body mass index (BMI) [Ratio] 30.70 kg/m2 30.70 kg/m2 eCW1 ([facility]) Body temperature 98.7 [degF] 98.7 [degF] eCW1 ( [facility]) Heart rate 100 /min 100 /min eCW1 ([facility]) Respiratory rate 18 /min 18 /min eCW1 ([facility]) Oxygen saturation in Arterial blood by Pulse oximetry 99 % 99 % eCW1 ([facility]) ID Date Data Source [id number] 10/18/2020 09:45:12 AM EDT [facility] Name Value Range Interpretation Code Description Data Source(s) TRANSFER FROM [facility] ID Date Data Source [id number] 08/27/2020 04:17:02 PM EDT [facility] Name Value Range Interpretation Code Description Data Source(s) TRANSFER FROM [facility] ID Date Data Source [id number] 08/17/2020 03:58:41 PM EDT [facility] Name Value Range Interpretation Code Description Data Source(s) TRANSFER FROM [facility] ID Date Data Source [id number] 12/26/2019 01:56:00 PM EDT [facility] Name Value Range Interpretation Code Description Data Source(s) WEIGHT 72.3 kilos 72.3 kilos [facility] HEIGHT 152.4 centimeters 152.4 centimeters [facility] WEIGHT 75 kilos 75 kilos [facility] HEIGHT 152.4 centimeters 152.4 centimeters [facility] ID Date Data Source [id number] 12/10/2019 06:07:00 AM EDT [facility] james Name Value Range Interpretation Code Description Data Source(s) WEIGHT 68 kilos 68 kilos [facility] HEIGHT 152.4 centimeters 152.4 centimeters [facility] WEIGHT 68.4 kilos 68.4 kilos [facility] al HEIGHT 152.4 centimeters 152.4 centimeters [facility] ID Date Data Source [id number] 12/08/2019 01:43:00 PM EDT [facility] james Name Value Range Interpretation Code Description Data Source(s) WEIGHT 75 kilos 75 kilos [facility] al HEIGHT 152.4 centimeters 152.4 centimeters [facility] ID Date Data Source [id number] 12/08/2019 01:43:00 PM EDT [facility] james Name Value Range Interpretation Code Description Data Source(s) [facility] 160.02 centimeter [facility] Patient Treatment Plan of Care Planned Activity Planned Date Details Description Data Source (s) Citalopram 10 MG Oral Tablet 09/30/2020 12:00:00 AM [facility] Levetiracetam 1000 MG Oral Tablet 09/29/2020 12:00:00 AM [facility] gabapentin 600 MG Oral Tablet 09/29/2020 12:00:00 AM [facility] Chlorpromazine hydrochloride 100 MG Oral Tablet 09/29/2020 12:00:00 AM [facility] Magnesium Hydroxide 80 MG/ML Oral Suspension 09/13/2020 08:49:03 AM [facility] sennosides, CUSTODIAL 8.6 MG Oral Tablet 09/13/2020 08:49:03 AM [facility] Docusate Sodium 100 MG Oral Capsule 09/13/2020 08:49:03 AM [facility] Bisacodyl 10 MG Rectal Suppository 09/13/2020 08:49:03 AM [facility] Buprenorphine 8 MG / Naloxone 2 MG Oral Strip 08/18/2020 12:00:00 A M [facility] Diphenhydramine Hydrochloride 25 MG Oral Capsule 08/17/2020 10:11:0 1 AM [facility] Asenapine 10 MG Sublingual Tablet 08/17/2020 12:00:00 AM [facility] benztropine mesylate 1 MG Oral Tablet 08/17/2020 12:00:00 AM [facility] gabapentin 300 MG Oral Capsule 08/17/2020 12:00:00 AM [facility] Diphenhydramine Hydrochloride 25 MG Oral Capsule 08/17/2020 12:00:0 0 AM [facility] Buprenorphine 8 MG / Naloxone 2 MG Sublingual Tablet 12:00:00 AM [facility] Clonidine Hydrochloride 0.2 MG Oral Tablet 08/17/2020 12:00:00 AM E DT [facility] Aluminum Hydroxide 40 MG/ML / Magnesium Hydroxide 40 MG/ML / Simethicone 4 MG/ML Oral Suspension 08/06/2020 07:39:14 PM [facility] Magnesium Hydroxide 80 MG/ML Oral Suspension 08/06/2020 07:39:11 PM [facility] gabapentin 600 MG Oral Tablet 07/17/2020 12:00:00 AM [facility] Doxepin Hydrochloride 25 MG Oral Capsule 03/09/2020 12:00:00 AM EST eCW1 ([facility]) Doxepin Hydrochloride 25 MG Oral Capsule 03/09/2020 12:00:00 AM EST eCW1 ([facility]) Doxepin Hydrochloride 25 MG Oral Capsule 03/09/2020 12:00:00 AM EST eCW1 ([facility]) Clonidine Hydrochloride 0.2 MG Oral Tablet 12/24/2019 12:00:00 AM E DT eCW1 ([facility]) Clonidine Hydrochloride 0.2 MG Oral Tablet 12/24/2019 12:00:00 AM E DT eCW1 ([facility]) Clonidine Hydrochloride 0.2 MG Oral Tablet 12/24/2019 12:00:00 AM E DT eCW1 ([facility]) Clonidine Hydrochloride 0.2 MG Oral Tablet 12/24/2019 12:00:00 AM E DT eCW1 ([facility]) Clonidine Hydrochloride 0.2 MG Oral Tablet 12/24/2019 12:00:00 AM E DT eCW1 ([facility]) Clonidine Hydrochloride 0.2 MG Oral Tablet 12/24/2019 12:00:00 AM E DT eCW1 ([facility]) Clonidine Hydrochloride 0.2 MG Oral Tablet 12/24/2019 12:00:00 AM E DT eCW1 ([facility]) lisdexamfetamine dimesylate 50 MG Oral Capsule [Vyvans e] 11/04/2019 12:00:00 AM EDT eCW1 ([facility]) Clonazepam 0.5 MG Oral Tablet 11/04/2019 12:00:00 AM EDT eCW1 ([facility]) Citalopram 20 MG Oral Tablet [Celexa] 11/04/2019 12:00:00 AM EDT eCW1 ([facility]) Sumatriptan 25 MG Oral Tablet MATIAS ([facility]) Buprenorphine 12 MG / Naloxone 3 MG Oral Strip [Suboxone] IONE ([facility]) benztropine mesylate 1 MG Oral Tablet [facility] Clonidine Hydrochloride 0.2 MG Oral Tablet [facility] Levetiracetam 1000 MG Oral Tablet [facility] Lurasidone Hydrochloride 40 MG Oral Tablet [facility] Trazodone Hydrochloride 50 MG Oral Tablet [facility] gabapentin 300 MG Oral Capsule [facility] 24 HR Nicotine 0.875 MG/HR Transdermal Patch [facility]
[2020-12-19] MEDS ORDERED: ISOVUE-370 76% 100ML VIAL As Ordered ONE (11:33)
--- OUTSIDE RECORDS SUMMARY | 2020-12-19 11:35 | CCD ---
Author Author [facility] Organization [facility] Address Unknown Phone Unavailable Care Team Providers Care Administrative Resources Associate Name Role Phone Yessi Ritchie MD Unavailable Unavailable Yessi Ritchie [...] Chato OTERO MD Unavailable Unavailable DESJARLAIS, KAROLYN SUPER[employer] Unavailable Unavailable DESJARLAIS, KAROLYN SUPERVIS[employer] Unavailable Unavailable DESJARLAIS, KAROLYN SUPERVISOR [employer] Unavailable Unavailable DESJARLAIS, KAROLYN SUPERVISOR [employer] Unavailable Unavailable DESJARLAIS, KAROLYN SUPERVISOR [employer] Unavailable Unavailable DESJARLAIS, KAROLYN SUPERVISOR [employer] Unavailable Unavailable DESJARLAIS, KAROLYN SUPERVISOR [employer] Unavailable Unavailable DESJARLAIS, KAROLYN SUPERVISOR [employer] Unavailable Unavailable DESJARLAIS, KAROLYN SUPER[employer] Unavailable Unavailable Lester, A Mavis ENTRY LEVEL ADMINISTRATIVE ASSISTANT Unavailable Unavailable Lester, A Mavis ENTRY LEVEL ADMINISTRATIVE ASSISTANT Unavailable Unavailable Lester, A Mavis ENTRY LEVEL ADMINISTRATIVE ASSISTANT Unavailable Unavailable Lester, A Mavis ENTRY LEVEL ADMINISTRATIVE ASSISTANT Unavailable Unavailable Lester, A Mavis ENTRY LEVEL ADMINISTRATIVE ASSISTANT Unavailable Unavailable Lester, A Mavis ENTRY LEVEL ADMINISTRATIVE ASSISTANT Unavailable Unavailable Lester, A Mavis ENTRY LEVEL ADMINISTRATIVE ASSISTANT Unavailable Unavailable Lester, A Mavis ENTRY LEVEL ADMINISTRATIVE ASSISTANT Unavailable Unavailable Lester, A Mavis ENTRY LEVEL ADMINISTRATIVE ASSISTANT Unavailable Unavailable Lester, A Mavis ENTRY LEVEL ADMINISTRATIVE ASSISTANT Unavailable Unavailable Lester, A Mavis ENTRY LEVEL ADMINISTRATIVE ASSISTANT Unavailable Unavailable Lester, A Mavis ENTRY LEVEL ADMINISTRATIVE ASSISTANT Unavailable Unavailable Lester, A Mavis ENTRY LEVEL ADMINISTRATIVE ASSISTANT Unavailable Unavailable Lester, A Mavis ENTRY LEVEL ADMINISTRATIVE ASSISTANT Unavailable Unavailable Lester, A Mavis ENTRY LEVEL ADMINISTRATIVE ASSISTANT Unavailable Unavailable Lester, A Mavis ENTRY LEVEL ADMINISTRATIVE ASSISTANT Unavailable Unavailable Lester, A Mavis ENTRY LEVEL ADMINISTRATIVE ASSISTANT Unavailable Unavailable Lester, A Mavis ENTRY LEVEL ADMINISTRATIVE ASSISTANT Unavailable Unavailable Lester, A Mavis ENTRY LEVEL ADMINISTRATIVE ASSISTANT Unavailable Unavailable Lester, A Mavis ENTRY LEVEL ADMINISTRATIVE ASSISTANT Unavailable Unavailable Lester, A Mavis ENTRY LEVEL ADMINISTRATIVE ASSISTANT Unavailable Unavailable Lester, A Mavis ENTRY LEVEL ADMINISTRATIVE ASSISTANT Unavailable Unavailable Lester, A Mavis ENTRY LEVEL ADMINISTRATIVE ASSISTANT Unavailable Unavailable Lester, A Mavis ENTRY LEVEL ADMINISTRATIVE ASSISTANT Unavailable Unavailable Lester, A Mavis ENTRY LEVEL ADMINISTRATIVE ASSISTANT Unavailable Unavailable Lester, A Mavis ENTRY LEVEL ADMINISTRATIVE ASSISTANT Unavailable Unavailable Lester, A Mavis ENTRY LEVEL ADMINISTRATIVE ASSISTANT Unavailable Unavailable Lester, A Mavis ENTRY LEVEL ADMINISTRATIVE ASSISTANT Unavailable Unavailable Lester, A Mavis ENTRY LEVEL ADMINISTRATIVE ASSISTANT Unavailable Unavailable Lester, A Mavis ENTRY LEVEL ADMINISTRATIVE ASSISTANT Unavailable Unavailable Lester, A Mavis ENTRY LEVEL ADMINISTRATIVE ASSISTANT Unavailable Unavailable Kori STEVEN MD Unavailable Unavailable [...] MIRLANDE FUNEZ MD Unavailable Unavailable DEE DEE JAIN MD Unavailable Unavailable DEE DEE JAIN MD Unavailable Unavailable FUNEZ, JAIN MD Unavailable Unavailable FUNEZ, JAIN MD Unavailable Unavailable FUNEZ, JAIN MD Unavailable Unavailable FUNEZ, JAIN MD Unavailable Unavailable FUNEZ, JAIN MD Unavailable Unavailable Ching, Reginah W Kassidy ENTRY LEVEL ADMINISTRATIVE ASSISTANT-C Unavailable Unavailabl e Ching, Reginah W Kassidy ENTRY LEVEL ADMINISTRATIVE ASSISTANT-C Unavailable Unavailabl e Ching, Reginah W Kassidy ENTRY LEVEL ADMINISTRATIVE ASSISTANT-C Unavailable Unavailabl e Ching, Reginah W Kassidy ENTRY LEVEL ADMINISTRATIVE ASSISTANT-C Unavailable Unavailabl e Ching, Reginah W Kassidy ENTRY LEVEL ADMINISTRATIVE ASSISTANT-C Unavailable Unavailabl e Ching, Reginah W Kassidy ENTRY LEVEL ADMINISTRATIVE ASSISTANT-C Unavailable Unavailabl e Ching, Reginah W Kassidy ENTRY LEVEL ADMINISTRATIVE ASSISTANT-C Unavailable Unavailabl e Ching, Reginah W Kassidy ENTRY LEVEL ADMINISTRATIVE ASSISTANT-C Unavailable Unavailabl e Ching, Reginah W Kassidy ENTRY LEVEL ADMINISTRATIVE ASSISTANT-C Unavailable Unavailabl e Ching, Reginah W Kassidy ENTRY LEVEL ADMINISTRATIVE ASSISTANT-C Unavailable Unavailabl e Ching, Reginah W Kassidy ENTRY LEVEL ADMINISTRATIVE ASSISTANT-C Unavailable Unavailabl e Ching, Reginah W Kassidy ENTRY LEVEL ADMINISTRATIVE ASSISTANT-C Unavailable Unavailabl e Ching, Reginah W Kassidy ENTRY LEVEL ADMINISTRATIVE ASSISTANT-C Unavailable Unavailabl e Ching, Reginah W Kassidy ENTRY LEVEL ADMINISTRATIVE ASSISTANT-C Unavailable Unavailabl e Ching, Reginah W Kassidy ENTRY LEVEL ADMINISTRATIVE ASSISTANT-C Unavailable Unavailabl e Ching, Reginah W Kassidy ENTRY LEVEL ADMINISTRATIVE ASSISTANT-C Unavailable Unavailabl e Ching, Reginah W Kassidy ENTRY LEVEL ADMINISTRATIVE ASSISTANT-C Unavailable Unavailabl e Ching, Reginah W Kassidy ENTRY LEVEL ADMINISTRATIVE ASSISTANT-C Unavailable Unavailabl e Ching, Regstacie W Kassidy ENTRY LEVEL ADMINISTRATIVE ASSISTANT-C Unavailable Unavailabl e Ching, Elijah W Kassidy ENTRY LEVEL ADMINISTRATIVE ASSISTANT-C Unavailable Unavailabl e Ching, Reginalisa W Kassidy ENTRY LEVEL ADMINISTRATIVE ASSISTANT-C Unavailable Unavailabl e Ching, Reginalisa W Kassidy ENTRY LEVEL ADMINISTRATIVE ASSISTANT-C Unavailable Unavailabl e Ching, Reginalisa W Kassidy ENTRY LEVEL ADMINISTRATIVE ASSISTANT-C Unavailable Unavailabl e Ching, Reginah W Kassidy ENTRY LEVEL ADMINISTRATIVE ASSISTANT-C Unavailable Unavailabl e Ching, Reginah W Kassidy ENTRY LEVEL ADMINISTRATIVE ASSISTANT-C Unavailable Unavailabl e Ching, Reginah W Kassidy ENTRY LEVEL ADMINISTRATIVE ASSISTANT-C Unavailable Unavailabl e Ching, Reginalisa W Kassidy ENTRY LEVEL ADMINISTRATIVE ASSISTANT-C Unavailable Unavailabl e Ching, Elijah W Kassidy ENTRY LEVEL ADMINISTRATIVE ASSISTANT-C Unavailable Unavailabl e Ching, Regstacie W Kassidy ENTRY LEVEL ADMINISTRATIVE ASSISTANT-C Unavailable Unavailabl e Ching, Elijah W Kassidy ENTRY LEVEL ADMINISTRATIVE ASSISTANT-C Unavailable Unavailabl e Ching, Abhishekinalisa W Kassidy ENTRY LEVEL ADMINISTRATIVE ASSISTANT-C Unavailable Unavailabl e Ching, Reginah W Kassidy ENTRY LEVEL ADMINISTRATIVE ASSISTANT-C Unavailable Unavailabl e LESTER, MATIAS PA Unavailable [...] Unavailable LESTER, MATIAS PA Unavailable Unavailable DIOGENES BEUNO MD Unavailable Unavailable TURRIN, EVONNE Unavailable Unavailable [...] MAHESH RECINOS MD Unavailable Unavailable Mavis BatistaP ENTRY LEVEL ADMINISTRATIVE ASSISTANT Unavailable Unavailable KATRIN BLUM MD Unavailable Unavailable [...] Unavailable Unavailable Hiral Liriano MD Unavailable Unavailable Hiarl Liriano MD Unavailable Unavailable Hiral Liriano MD [...] Unavailable Unavailable JESICALino Cullen MD Unavailable Unavailable JESICALion Cullen MD Unavailable Unavailable JESICALino Cullen MD [...] BROWN, L JANE Unavailable Unavailable ANAHI ESCALERA SUPERVISOR [employer]AME [employer] Unavailable Unavailable ESCALERA, ANAHI SUPERVISOR [employer]AME [employer] Unavailable Unavailable ESCALERA, ANAHI SUPERVISOR [employer] Unavailable Unavailable BRITTANYBEHZAD MD Unavailable Unavailable HUMBERTO, [...] is protected by Article 27-F of the [facility] Public Health law. If you continue you may have access to information: Regarding HIV / AIDS; Provided by facilities licensed or operated by the [facility] Office of Mental Health; or Provided by the [facility] Office for People With Developmental Disabilities. If such information is present, then the following [facility] mandated warning applies: This information has been [...] ) Propensity to adverse reactions ZIPRASIDONE ZIPRASIDONE [facility] Propensity to adverse reactions TRIMETHOPRIM Trimethoprim [facility] Propensity to adverse reactions SULFAMETHOXAZOLE Sulfamethoxazole [facility] Propensity to adverse reactions PENICILLINS Penicillin [facility] Propensity to adverse reactions HALOPERIDOL HALOPERIDOL [facility] Propensity to adverse reactions DEXTROAMPHETAMINE DEXTROAMPHETAMINE [facility] Drug allergy Drug allergy AMOXICLIIN SWELLING, HIVES [facility] Drug allergy olanzapine [facility]apine [facility] Drug allergy trimethoprim trimethoprim "BLISTERS IN MOUTH" [facility] Drug allergy sulfamethoxazole sulfamethoxazole "BLISTERS IN MOUTH" [facility] Drug allergy haloperidol haloperidol [facility] ital Drug allergy Sulfa (Sulfonamide Antibiotics) Sulfa (Sulfonami de Antibiotics) "BLISTERS IN MOUTH" [facility] Drug allergy Penicillins Penicillins SWELLING, HIVES R [facility] Encounters Encounter Providers Location Date Indications Data Source(s ) Outpatient Attender: KAROLYN VAN [employer]PER[employer] 11/24/2020 03: 20:00 PM EDT [facility] Francesco Ritchie MD: [address] [place] [phone], Ph. Attender: Francesco Ritchie MD NM - [facility] Medical 11/12/2020 12:00:00 AM EDT MATIAS ([facility]) OFFICE VISIT, ESTOutpatient Attender: Nora MIKE [place] 11/05/2020 01:30:00 PM EDT - 11/05/2020 01:30:00 PM EDT Delusional disorders [facility] ([facility]) Delusional disorders Emergency Attender: EVONNE HAGENConsultant: STAFF NON 11/03/2020 11:35:00 AM EDT - 11/03/2020 03:27:[address] [facility] Patient discharged. Outpatient [facility] 10/12/2020 12:00:00 AM EDT eCW1 ([facility]) Emergency Attender: Matt Ruby MDConsultant: STAFF NON 10/03/2020 06:06:00 PM EDT - 10/03/2020 07:27:00 PM EDT [facility] Patient discharged. Inpatient Attender: JAINELIDIA Elizabteh nder: MARY JO PARADA MDAdmitter: MARY JO PARADA MDReferrer: ANAHI ESCALERA NP [id number] 09/11/2020 03:40:00 PM EDT - 09/29/2020 03:01:00 PM EDT [facility] Patient discharged. Emergency Attender: ZAYNAB STEVEN MDConsultant: STAFF NON 09/09/2020 04:46:00 PM EDT - 09/09/2020 09:35:00 PM EDT [facility] ital Patient discharged. Outpatient Attender: KAROLYN VAN NP 09/03/2020 11: 00:00 AM EDT [facility] Outpatient [facility] 08/31/2020 12:00:00 AM EDT eCW1 ([facility]) Inpatient Attender: MIRLANDE Elizabeth nder: GENO GAMBLE MDAdmitter: JAINELIDIA FUNEZ MDReferrer: KARI OTERO MD [id number] 08/25/2020 03:33:00 PM EDT - 08/27/2020 12:52:00 PM EDT [facility] Patient discharged. Inpatient Attender: MIRLANDE Elizabeth nder: MARY JO PARADA MDAttender: Hiral Liriano MDAdmitter: MARY JO PARADA MDReferrer: MARY JO PARADA MD [id number] 08/06/2020 12:00:00 AM EDT - 08/17/2020 12:08:00 PM EDT Suicidal ideations [facility] Suicidal ideations Patient discharged. Outpatient [facility] 07/22/2020 12:00:00 AM EDT eCW1 ([facility]) Outpatient Attender: Jane Edward 07/15/2020 08:03:00 AM E DT [facility] Outpatient [facility] 07/15/2020 12:00:00 AM EDT eCW1 ([facility]) Outpatient [facility] 07/12/2020 12:00:00 AM EDT eCW1 ([facility]) Emergency Attender: EVONNE Garzasultant: STAFF NON 06/28/2020 07:41:00 PM EDT - 06/28/2020 09:08:00 PM EDT [facility] ital Patient discharged. Emergency Attender: EVONNE aLckeyant: STAFF NON 06/16/2020 04:22:00 PM EDT - 06/16/2020 08:01:00 PM EDT [facility] ital Patient discharged. Outpatient Attender: Jane Stonerender: JANE EDWARD 06/16/2020 09:02:00 AM EDT [facility] Outpatient [facility] 06/14/2020 12:00:00 AM EDT eCW1 ([facility]) Outpatient [facility] 06/11/2020 12:00:00 AM EDT eCW1 ([facility]) Outpatient Attender: Jane Denson: JANE EDWARD 05/26/2020 05:00:00 PM EDT [facility] Outpatient [facility] 05/26/2020 12:00:00 AM EDT eCW1 ([facility]) Outpatient [facility] 05/24/2020 12:00:00 AM EDT eCW1 ([facility]) Outpatient [facility] 05/24/2020 12:00:00 AM EDT eCW1 ([facility]) Outpatient [facility] 05/14/2020 12:00:00 AM EDT eCW1 ([facility]) Outpatient [facility] 05/04/2020 12:00:00 AM EST eCW1 ([facility]) Outpatient Attender: KAROLYN VAN NP 04/29/2020 01: 20:00 PM EST [facility] Outpatient [facility] 04/28/2020 12:00:00 AM EST eCW1 ([facility]) Outpatient [facility] 04/28/2020 12:00:00 AM EST eCW1 ([facility]) Outpatient [facility] 04/23/2020 12:00:00 AM EST eCW1 ([facility]) Outpatient Attender: Jane Denson: JANE EDWARD 04/20/2020 03:00:00 PM EST [facility] Outpatient [facility] 04/19/2020 12:00:00 AM EST eCW1 ([facility]) Outpatient [facility] 04/16/2020 12:00:00 AM EST eCW1 ([facility]) Outpatient Attender: FAHAD MOONEY MD 04/15/2020 09:4 5:00 AM [facility] Outpatient [facility] 04/12/2020 12:00:00 AM EST eCW1 ([facility]) Outpatient [facility] 04/12/2020 12:00:00 AM EST eCW1 ([facility]) Outpatient [facility] 04/08/2020 12:00:00 AM EST eCW1 ([facility]) Outpatient [facility] 04/08/2020 12:00:00 AM EST eCW1 ([facility]) Outpatient [facility] 04/08/2020 12:00:00 AM EST eCW1 ([facility]) Outpatient [facility] 04/05/2020 12:00:00 AM EST eCW1 ([facility]) Outpatient Attender: NATHAN PAUL PA-C 03/30/2020 10:30:00 AM [facility] Outpatient Attender: Shira Youngblood PA-C 03/30/2020 10:18 :00 AM [facility] Outpatient [facility] 03/30/2020 12:00:00 AM EST eCW1 ([facility]) Outpatient Attender: Jane EdwardAttender: JANE EDWARD 03/23/2020 02:00:00 PM [facility] Outpatient Attender: Jane EdwardAttender: JANE EDWARD 03/17/2020 10:30:00 AM [facility] Outpatient Attender: Jane Stonerender: JANE EDWARD 03/11/2020 04:00:00 PM [facility] Outpatient Attender: FAHAD MOONEY MD 03/11/2020 06:3 0:00 AM [facility] Admission cancelled. Disregard status an d admitted date. Outpatient Attender: KAROLYN VAN NP 03/09/2020 03: 40:00 PM [facility] Outpatient [facility] 03/03/2020 12:00:00 AM EST eCW1 ([facility]) Outpatient Attender: Shira Becerraferrer: Shira Youngblood PA-C EMERGENCY ROOM-LAB 03/01/2020 04:49:00 PM EST - 03/01/2020 04:49:00 PM [facility] Outpatient Attender: Shira Youngblood PA-C 03/01/2020 03:45 :00 PM [facility] Outpatient [facility] 03/01/2020 12:00:00 AM EST eCW1 ([facility]) Outpatient [facility] 03/01/2020 12:00:00 AM EST eCW1 ([facility]) Outpatient Attender: KAROLYN VAN NP 02/18/2020 02: 40:00 PM [facility] Outpatient Attender: Kassidy SERRANO 02/18/2020 10:00:0 0 AM [facility] Outpatient [facility] 02/18/2020 12:00:00 AM EST eCW1 ([facility]) Outpatient [facility] 02/10/2020 12:00:00 AM EST eCW1 ([facility]) Outpatient [facility] 02/03/2020 12:00:00 AM EST eCW1 ([facility]) Outpatient [facility] 01/14/2020 12:00:00 AM EST eCW1 ([facility]) Outpatient [facility] 01/06/2020 12:00:00 AM EST eCW1 ([facility]) Outpatient Attender: JOHNATHON PATEL 01/02/2020 10:06:00 A [facility] Outpatient [facility] 01/02/2020 12:00:00 AM EST eCW1 ([facility]) Outpatient Attender: Jane EdwardAttender: JANE EDWARD 01/01/2020 02:30:00 PM [facility] Outpatient Attender: KAROLYN VAN NP 12/24/2019 11: 00:00 AM [facility] Outpatient Attender: Shira Youngblood PA-C 12/24/2019 08:24 :00 AM [facility] Outpatient [facility] 12/24/2019 12:00:00 AM EDT eCW1 ([facility]) Outpatient Attender: Jane EdwardAttender: JANE EDWARD 12/23/2019 01:54:00 PM EDT [facility] Outpatient [facility] 12/23/2019 12:00:00 AM EDT eCW1 ([facility]) Outpatient Attender: Mavis PATEL 12/12/2019 11:3 5:02 AM EDT [facility] Outpatient Attender: Jane EdwardAttender: JANE EDWARD 12/11/2019 03:00:00 PM EDT [facility] Outpatient [facility] 12/09/2019 12:00:00 AM EDT eCW1 ([facility]) Outpatient Attender: Mavis PATEL 12/05/2019 01:2 6:01 PM EDT [facility] Inpatient Attender: PRERNA RIOS MDAdmitter: PRERNA Alvarado MD ER-3RD 12/05/2019 10:08:00 AM EDT - 12/10/2019 01:07:00 PM EDT [facility] Patient discharged. Outpatient Attender: NATHAN PAUL PA-C 12/05/2019 09:03:00 AM [facility] Admission cancelled. Disregard status an d admitted date. Inpatient Attender: BEHZAD SOTO MD Attender: BEHZAD SOTO MDAttender: DIOGENES BUENO MDAttender: DIOGENES BUENO MDAdmitter: BEHZAD SOTO MD ER-ICU 12/04/2019 11:06:00 PM EDT - 12/05/2019 10:03:00 AM EDT [facility] Patient discharged. Emergency Attender: GINGER Salaser: Melissa Youngblood PA-C EMERGENCY ROOM-ER 12/04/2019 04:21:00 PM EDT - 12/04/2019 08:40:00 PM EDT [facility] Patient discharged. Outpatient Attender: KAROLYN VAN NP 12/04/2019 03: 11:00 PM EDT [facility] Outpatient Attender: Mavis PATEL 11/29/2019 07:0 4:03 PM EDT [facility] Outpatient Attender: JOHNATHON PATEL 11/29/2019 07:04:01 P M EDT [facility] Outpatient Attender: Mavis PATEL 11/24/2019 12:2 9:00 PM EDT [facility] Emergency Attender: EVONNE Garzasuant: STAFF CAMPOVERDE 11/07/2019 12:19:00 AM EDT - 11/07/2019 04:20:[address] [facility] Patient discharged. Outpatient [facility] 11/07/2019 12:00:00 AM EDT eCW1 ([facility]) Outpatient Attender: Mavis PATEL 11/04/2019 02:2 6:02 PM EDT [facility] Outpatient Attender: KAROLYN VAN NP 11/04/2019 11: 40:00 AM [facility] Outpatient Attender: Mavis PATEL 11/02/2019 01:2 6:00 PM EDT [facility] Outpatient Attender: Mavis PATEL 10/31/2019 06:0 2:00 PM EDT [facility] Outpatient Attender: JOHNATHON PATEL 10/31/2019 06:01:59 P M EDT [facility] Outpatient Attender: Mavis PATEL 10/31/2019 06:0 1:03 PM EDT [facility] Outpatient Attender: JOHNATHON PATEL 10/31/2019 06:01:01 P M EDT [facility] Outpatient Attender: Shira Youngblood PA-C 10/31/2019 09:06 :00 AM [facility] Outpatient [facility] 10/31/2019 12:00:00 AM EDT eCW1 ([facility]) Outpatient Attender: Jane EdwardAttender: JANE EDWARD 10/27/2019 11:00:00 AM [facility] Outpatient Attender: KAROLYN VAN NP 10/21/2019 03: 20:00 PM [facility] Outpatient Attender: KATRIN BLUM MDAttender: KATRIN BLUM 10/06/2019 09:37:00 AM [facility] Outpatient Attender: KATRIN BLUM MDAttender: KATRIN BLUM 08/04/2019 09:42:00 AM [facility] Outpatient Attender: KATRIN BLUM MDAttender: KATRIN BLUM 07/07/2019 03:30:00 PM [facility] Outpatient Attender: KATRIN BLUM MDAttender: KATRIN BLUM 04/21/2019 10:29:00 AM [facility] Outpatient Attender: MAHESH RECINOS MDAttender: MAHESH RECINOS 02/24/2019 01:46:00 PM [facility] Outpatient Attender: Jane EdwardAttender: JANE CHEYANNE 02/21/2019 10:00:00 AM [facility] Outpatient Attender: MAHESH RECINOS MDAttender: MAHESH RECINOS 02/10/2019 02:18:00 PM [facility] Inpatient Attender: CHAO GUERRA MDAttdoug harjinder: PRERNA RIOS MDAdmitter: PRERNA RIOS MD ER-3RD 12/23/2018 04:01:00 PM EDT - 12/26/2018 01:22:00 PM T [facility] Patient discharged. Inpatient Attender: ONDINA RAMIREZ MDAdmitter: ONDINA RAMIREZ MD E R-ICU 12/19/2018 05:26:00 PM EDT - 12/23/2018 03:42:00 PM EDT [facility] Patient discharged. Emergency Attender: MATIAS BATISTA [place] EMERGENCY ROOM-ER 03:51:00 PM EDT - 12/19/2018 [...] propionate 0.05 MG/ACTUAT Metered Dose [facility] 50 mcg/actuation FLUTICASONE PROPIONATE 11/02/2020 12:00:00 AM [...] A DAY NEEDED FOR EPS SOLD: 10/13/2020 [facility] Clonidine Hydrochloride 0.2 MG Oral Tablet [...] A DAY TAKE ONE CAPSULE BY [facility] TWICE A DAY SOLD: 10/07/2020 [facility] [...] active Take 1 tablet by mouth d [facility] Buprenorphine 8 MG / Naloxone 2 MG Oral Strip buprenorphine-naloxone (SUBOXONE) 8-2 MG per sublingual film 2 Film buprenorphine-naloxone (SUBOXONE) 8-2 MG per sublingual film 2 Film 09/29/2020 09:00:00 AM EDT 2 {film} Sublingual active 2 Film, Sublingual, Daily Standard, First dose (after last reorder) on Sun09/29/20 at 0900, For 7 days [facility] Medication administered onsite 1,000 mg 09/29/2020 [...] mg Oral active Take [facility] Three times daily [facility] Levetiracetam 1000 MG Oral Tablet levETIRAcetam 1000 M G Oral Tablet (KEPPRA) levETIRAcetam 1000 MG Oral Tablet (KEPPRA) 09/29/2020 12:00:00 AM EDT 1000 mg Oral active Take 1 tablet by cali th Two Times Daily [facility] Chlorpromazine hydrochloride 100 MG Oral Tablet chlorproMAZINE HCl 100 MG Oral Tablet (THORAZINE) chlorproMAZINE HCl 100 MG Oral Tablet (THORAZINE) 05/2020 12:00:00 AM EDT 100 mg Oral active Take 1 tablet by mouth Two Times Daily [facility] 600 mg 09/29/2020 12:00:00 AM EDT tablet 30 TAKE ONE TABLET BY MOUTH THREE TIMES A DAY TAKE ONE TABLET BY MOUTH THREE TIMES A DAY SOLD: 10/13/2020 [facility] 600 mg 09/29/2020 12:00:00 AM EDT [...] TABLET BY MOUTH EVERY DAY SOLD: 09/30/2020 [facility] Chlorpromazine hydrochloride 100 MG Oral Tablet chlorproMAZINE (THORAZINE) tablet 100 mg chlorproMAZINE (THORAZINE) tablet 100 mg 09/27/2020 09 :00:00 PM EDT 100 mg Oral active 100 mg, Oral, 2 Times Daily, First dose (after last modification) on Sun09/27/20 at 2100, For 30 doses [facility] Medication administered onsite chlorproMAZINE (THORAZINE) injection 100 mg [id number] 09/27/2020 01:00:00 PM EDT 100 mg Intramuscular completed 100 mg, Intramuscular, Once, On Sun09/27/20 at 1300, For 1 dose
May be given over objection
[facility] Medication administered onsite chlorproMAZINE (THORAZINE) injection 100 mg [id number] 09/25/2020 02:00:00 PM EDT 100 mg Intramuscular completed 100 mg, Intramuscular, Once, On 09/25/20 at 1400, For 1 dose [facility] Medication administered onsite diphenhydrAMINE (BENADRYL) injection 50 mg [id number] 09/25/2020 02:00:00 PM EDT 50 mg Intramuscular completed 50 mg, Intramuscular, Once, On 09/25/20 at 1400, For 1 dose [facility] Medication administered onsite olanzapine 5 MG/ML Injectable Solution OLANZapine (ZYP REXA) injection 10 mg OLANZapine (ZYPREXA) injection 10 mg 09/25/2020 09:15:00 AM EDT 10 mg Intramuscular completed 10 mg, Intr amuscular, Once, On Sun09/25/20 at 0915, For 1 dose
Reconstitute 10 mg vial with 2.1 mL SWFI; resulting solution is ~5 mg/mL; Use within 1 hour following reconstitution.
[facility] Medication administered onsite Chlorpromazine hydrochloride 100 MG Oral Tablet chlorproMAZINE (THORAZINE) tablet 100 mg chlorproMAZINE (THORAZINE) tablet 100 mg 09/23/2020 10 :00:00 PM EDT 100 mg Oral aborted 100 mg, Oral, Nightly, First dose (after last modification) on Sun09/23/20 at 2200, For 28 doses [facility] Medication administered onsite gabapentin 300 MG Oral Capsule gabapentin (NEURONTIN) capsule 600 mg gabapentin (NEURONTIN) capsule 600 mg 09/23/2020 03:00:00 PM EDT 600 mg Oral active 600 mg, Oral, Three Times D aily Standard, Indications: substance use anxiety, First dose (after last modification) on Sun09/23/20 at 1500, For 57 doses [facility] Medication administered onsite Chlorpromazine hydrochloride 50 MG Oral Tablet chlorproMAZINE (THORAZINE) tablet 50 mg chlorproMAZINE (THORAZINE) tablet 50 mg 09/21/2020 10:00:00 PM E DT 50 mg Oral aborted 50 mg, Ora l, Nightly, First dose on Sun09/21/20 at 2200, For 30 days [facility] Medication administered onsite Ibuprofen 400 MG Oral Tablet ibuprofen (MOTRIN) tablet 400 mg ibuprofen (MOTRIN) tablet 400 mg 09/21/2020 09:30:00 PM EDT 400 mg Oral comp leted 400 mg, Oral, Once, On Sun09/21/20 at 2130, For 1 dose
Take with food.
[facility] Medication administered onsite Chlorpromazine hydrochloride 25 MG Oral Tablet chlorproMAZINE (THORAZINE) tablet 25 mg chlorproMAZINE (THORAZINE) tablet 25 mg 09/21/2020 03:00:00 PM E DT 25 mg Oral aborted 25 mg, Ora l, 2 Times Daily, First dose (after last modification) on Sun09/21/20 at 1500, For 30 doses [facility] Medication administered onsite Citalopram 20 MG Oral Tablet citalopram (CELEXA) table t 10 mg citalopram (CELEXA) tablet 10 mg 09/19/2020 09:00:00 AM EDT 10 mg Oral active 10 mg, Oral, Daily Standard, First dose on Sun09/19/20 at 0900, For 30 days [facility] Medication administered onsite Chlorpromazine hydrochloride 25 MG Oral Tablet chlorproMAZINE (THORAZINE) tablet 25 mg chlorproMAZINE (THORAZINE) tablet 25 mg 09/15/2020 12:15:00 PM E DT 25 mg Oral aborted 25 mg, Ora l, Three Times Daily Standard, First dose on Sun09/15/20 at 1215, For 30 days [facility] Medication administered onsite Nicotine 2 MG Oral Lozenge nicotine (NICORETTE) lozeng e 2 mg nicotine (NICORETTE) lozenge 2 mg 09/15/2020 10:22:02 AM EDT 2 mg Mouth/Th roat active 2 mg, Mouth/Throat, Every 2 hours PRN, Smoking cessation, Starting on Sun09/15/20 at 1022, For 30 days
Should not be chewed or swallowed; allow to dissolve slowly (~20-30 minutes)
[facility] Medication administered onsite gabapentin 400 MG Oral Capsule gabapentin (NEURONTIN) capsule 400 mg gabapentin (NEURONTIN) capsule 400 mg 09/14/2020 05:00:00 PM EDT 400 mg Oral aborted 400 mg, Oral, Three Times D aily Standard, Indications: substance use anxiety, First dose (after last modification) on Sun09/14/20 at 1700, For 84 doses [facility] Medication administered onsite Acetaminophen 325 MG [...] mg from all sources in 24 hours.
[facility] Medication administered onsite 24 HR Nicotine 0.875 MG/HR Transdermal P atch nicotine (NICODERM CQ) 21 MG/24HR 1 patch nicotine (NICODERM CQ) 21 MG/24HR 1 patch 09/13/2020 09:00:00 AM EDT 1 {patch} Transdermal aborted 1 patch, Transdermal, Administer over 24 Hours, Daily Standard, First dose on Sun09/13/20 at 0900, For 30 days [facility] Medication administered onsite Bisacodyl 10 MG Rectal Suppository bisacodyl (DULCOLAX ) suppository 10 mg bisacodyl (DULCOLAX) suppository 10 mg 09/13/2020 08:49:03 AM EDT 10 mg Rectal active 10 mg, Rectal, Every 72 hours PRN, Constipation, Starting on Sun09/13/20 at 0849, For 30 days
Hold if patient has had BM within the past 2 days.
[facility] Medication administered onsite Docusate Sodium 100 MG Oral Capsule docusate sodium (C OLACE) capsule 100 mg docusate sodium (COLACE) capsule 100 mg 09/13/2020 08:49:03 AM EDT 100 mg Oral active 100 mg, Oral, 2 Times Daily PRN, Constipation, Starting on Sun09/13/20 at 0849, For 30 days [facility] Medication administered onsite sennosides, CORRECTION 8.6 MG Oral Tablet senna tablet 2 tablet sen na tablet 2 tablet 09/13/2020 08:49:03 AM EDT 2 {tbl} Oral active 2 tablet, Oral, Nightly PRN, Constipation, Starting on Sun09/13/20 at 0849, For 30 days [facility] Medication administered onsite Magnesium Hydroxide 80 [...] creatinine > 2 notify provider before administering.
[facility] Medication administered onsite Asenapine 5 MG Sublingual Tablet Asenapine Maleate (SA PHRIS) SL tablet 5 mg Asenapine Maleate (SAPHRIS) SL tablet 5 mg 09/12/2020 09:00:00 PM EDT 5 mg Sublingual aborted 5 mg, Sublingu al, 2 Times Daily, First dose on 09/12/20 at 2100, For 30 days [facility] Medication administered onsite gabapentin 300 MG Oral Capsule gabapentin (NEURONTIN) capsule 300 mg gabapentin (NEURONTIN) capsule 300 mg 09/12/2020 05:00:00 PM EDT 300 mg Oral aborted 300 mg, Oral, Three Times D aily Standard, Indications: substance use anxiety, First dose on Sun09/12/20 at 1700, For 30 days [facility] Medication administered onsite Trazodone Hydrochloride 50 MG Oral Tablet trazodone (D ESYREL) tablet 50 mg trazodone (DESYREL) tablet 50 mg 09/12/2020 12:11:29 PM EDT 50 mg Oral active 50 mg, Oral, Nightly PRN, Sleep, Starting on 09/12/20 at 1211, For 30 days [facility] Medication administered onsite Hydroxyzine Hydrochloride 50 MG Oral Tablet hydrOXYzin e (ATARAX) tablet 50 mg hydrOXYzine (ATARAX) tablet 50 mg 09/12/2020 12:10:58 PM EDT 50 mg Oral active 50 mg, Oral, Every 6 hours PRN, Itching, Starting on 09/12/20 at 1210, For 700 hours [facility] Medication administered onsite Clonidine Hydrochloride 0.1 MG Oral Tablet cloNIDine ( CATAPRES) tablet 0.1 mg cloNIDine (CATAPRES) tablet 0.1 mg 09/12/2020 12:10:43 PM EDT 0.1 mg Oral active Attention Deficit Hyperactivity Disorder 0.1 mg, Oral, Three Times Daily-PRN, anxiety, Indications: Attention Deficit Hyperactivity Disorder, Starting on 09/12/20 at 1210, For 30 days [facility] Attention Deficit Hyperactivity Disorder Medication administered onsite Levetiracetam 500 MG Oral Tablet levetiracetam (KEPPRA ) tablet 1,000 mg levetiracetam (KEPPRA) tablet 1,000 mg 09/11/2020 09:00:00 PM EDT 1000 mg Oral active 1,000 mg, Oral , 2 Times Daily, First dose on 09/11/20 at 2100, For 81 doses [facility] Medication administered onsite Buprenorphine 8 MG / Naloxone 2 MG Oral Strip buprenorphine-naloxone (SUBOXONE) 8-2 MG per sublingual film 2 Film buprenorphine-naloxone (SUBOXONE) 8-2 MG per sublingual film 2 Film 09/11/2020 08:45:00 PM EDT 2 {film} Sublingual completed 2 Film, Sublingual, Daily Standard, First dose (after last modification) on 09/11/20 at 2045, For 18 doses [facility] Medication administered onsite benztropine mesylate 1 MG Oral Tablet benztropine (COG ENTIN) tablet 1 mg benztropine (COGENTIN) tablet 1 mg 09/11/2020 04:38:18 PM EDT 1 mg Oral active 1 mg, Oral, 2 Times Daily PRN, Tremor, Starting on 09/11/20 at 1638, For 30 days [facility] Medication administered onsite 100,000 unit/mL 09/02/2020 [...] 12 HOURS FOR 7 DAYS SOLD: 09/01/2020 [facility] 10 mg 08/31/2020 12:00:00 AM EDT [...] Place 2 Film under the tongue daily [facility] Diphenhydramine Hydrochloride 25 MG Oral Capsule diphenhydrAMINE (BENADRYL) capsule 25 mg diphenhydrAMINE (BENADRYL) capsule 25 mg 08/17/2020 10 :11:01 AM EDT 25 mg Oral active 25 mg, O ral, Nightly PRN, Sleep, Starting on Sun08/17/20 at 1011, For 30 days [facility] Medication administered onsite Buprenorphine 8 MG / Naloxone 2 MG Subli ngual Tablet Buprenorphine HCl-Naloxone HCl 8-2 MG Sublingual Tablet Sublingual (SUBOXONE) Buprenorphine HCl-Naloxone HCl 8-2 MG Sublingual Tablet Sublingual (SUBOXONE) 08/17/2020 12:00:00 AM EDT 1 {tbl} Sublingual active Place 1 t ablet under the tongue Two Times Daily Use supply at home, Max Daily Dose: 2 tablets [facility] Asenapine 10 MG Sublingual Tablet Asenap ine Maleate 10 MG Sublingual Tablet Sublingual (SAPHRIS) Asenapine Maleate 10 MG Sublingual Table t Sublingual (SAPHRIS) 08/17/2020 12:00:00 AM EDT 10 mg Sublingual abor keven Place 1 tablet under the tongue Two Times Daily [facility] 10 mg 08/17/2020 12:00:00 AM EDT [...] 1 tablet by mouth daily as needed [facility] gabapentin 300 MG Oral Capsule Gabapentin 300 MG Oral Capsule (NEURONTIN) Gabapentin 300 MG Oral Capsule (NEURONTIN) 08/17/2020 12:00:00 AM EDT 600 mg Oral aborted Take 2 capsules by m outh Three times daily [facility] benztropine mesylate 1 MG Oral Tablet Be nztropine Mesylate 1 MG Oral Tablet (COGENTIN) Benztropine Mesylate 1 MG Oral Tablet (COGENTIN) 08/17 12:00:00 AM EDT 1 mg Oral active Take 1 t ablet by mouth Two times daily as needed [facility] 25 mg 08/17/2020 12:00:00 AM EDT capsule 15 TAKE 1 CAPSULE BY MOUTH NIGHTLY NEEDED FOR SLEEP FOR UP TO 10 DAYS TAKE 1 CAPSULE BY MOUTH NIGHTLY NEEDE D FOR SLEEP FOR UP TO 10 DAYS SOLD: 08/17/2020 [facility] Diphenhydramine Hydrochloride 25 MG Oral Capsule diphenhydrAMINE HCl 25 MG Oral Capsule (BENADRYL) diphenhydrAMINE HCl 25 MG Oral Capsule (BENADRYL) 07/28 12:00:00 AM EDT 25 mg Oral active Take 1 capsule by mouth nightly as needed for Sleep for up to 10 days [facility] 1 mg 08/17/2020 12:00:00 AM EDT tablet 30 TAKE ONE TABLET BY MOUTH TWICE A DAY NEEDED TAKE ONE TABLET BY MOUTH TWICE A DAY NEEDED SOLD: 08/17/2020 [facility] 300 mg 08/17/2020 12:00:00 AM EDT capsule 84 TAKE TWO CAPSULES BY MOUTH THREE TIMES A DAY TAKE TWO CAPSULES BY MOUTH THREE TIMES A DAY SOLD: [facility] Clonidine Hydrochloride 0.2 MG Oral Tablet CLONIDINE HCL 08/17/2020 12:00:00 AM EDT tablet 15 TAKE ONE TABLET BY MOUTH CORWIN DAY NEEDED TAKE ONE TABLET BY MOUTH EVERY DAY NEEDED SOLD: 08/17/2020 [facility] benztropine mesylate 1 MG Oral Tablet benztropine (COG ENTIN) tablet 1 mg benztropine (COGENTIN) tablet 1 mg 08/16/2020 09:00:00 PM EDT 1 mg Oral active 1 mg, Oral, 2 Times Daily, First dose (after last modification) on Sun08/16/20 at 2100, For 60 doses [facility] Medication administered onsite Asenapine 10 MG Sublingual Tablet Asenapine Maleate (S APHRIS) SL tablet 10 mg Asenapine Maleate (SAPHRIS) SL tablet 10 mg 08/11/2020 08:00:00 PM EDT 10 mg Sublingual active 10 mg, Subling ual, 2 Times Daily, First dose (after last modification) on Sun08/11/20 at 2000, For 53 doses [facility] Medication administered onsite olanzapine 10 MG Disintegrating Oral Tab let OLANZapine zydis (ZYPREXA) disintegrating tablet 10 mg OLANZapine zydis (ZYPREXA) disintegratin g tablet 10 mg 08/11/2020 03:15:00 PM EDT 10 mg Oral completed 10 mg, Oral, Once, On Sun08/11/20 at 1515, For 1 dose [facility] Medication administered onsite 50 mg 08/09/2020 12:00:00 AM EDT tablet 7 TAKE ONE TABLET BY MOUTH EVERY DAY NEEDED FOR MIGRAINE TAKE ONE TABLET BY MOUTH EVERY DAY NE EDED FOR MIGRAINE SOLD: 08/17/2020 [facility] Asenapine 5 MG Sublingual Tablet Asenapine Maleate (SA PHRIS) SL tablet 5 mg Asenapine Maleate (SAPHRIS) SL tablet 5 mg 08/08/2020 06:30:00 PM EDT 5 mg Sublingual aborted 5 mg, Sublingu al, 2 Times Daily, First dose (after last modification) on Sun08/08/20 at 1830, For 30 days [facility] Medication administered onsite Lurasidone Hydrochloride 40 MG Oral Tablet lurasidone HCl (LATUDA) tablet 20 mg lurasidone HCl (LATUDA) tablet 20 mg 08/07/2020 09:00:00 AM EDT 20 mg Oral aborted 20 mg, Oral, Burt ly Standard, First dose on Sun08/07/20 at 0900, For 30 days
Administer with food.
[facility] Medication administered onsite 1,000 mg 08/07/2020 12:00:00 AM EDT tablet 14 TAKE ONE TABLET BY MOUTH TWICE A DAY FOR SEIZURES TAKE ONE TABLET BY MOUTH TWICE A DAY FOR SEIZURES SOLD : 08/17/2020 [facility] Levetiracetam 500 MG Oral Tablet levETIRAcetam (KEPPRA ) tablet 1,000 mg levETIRAcetam (KEPPRA) tablet 1,000 mg 08/06/2020 09:00:00 PM EDT 1000 mg Oral active 1,000 mg, Oral , 2 Times Daily, First dose on Sun08/06/20 at 2100, For 30 days [facility] Medication administered onsite gabapentin 300 MG Oral Capsule gabapentin (NEURONTIN) capsule 600 mg gabapentin (NEURONTIN) capsule 600 mg 08/06/2020 09:00:00 PM EDT 600 mg Oral active Neuropathic Pain 600 mg, Oral, Three Times D aily Standard, Indications: Neuropathic Pain, First dose on Sun08/06/20 at 2100, For 30 days [facility] Neuropathic Pain Medication administered onsite Buprenorphine 8 MG / Naloxone 2 MG Subli ngual Tablet buprenorphine-naloxone (SUBOXONE) 8-2 MG per sublingual tablet 1 tablet buprenorphine-naloxone (SUBOXONE) 8-2 MG per sublingual tablet 1 tablet 08/06/2020 09:00:00 PM EDT Sublingual active 1 tablet (8 mg of buprenorphine), Sublingual, 2 Times Daily, First dose on Sun08/06/20 at 2100, For 26 doses [facility] Medication administered onsite Hydroxyzine Hydrochloride 50 MG Oral Tablet hydrOXYzin e (ATARAX) tablet 50 mg hydrOXYzine (ATARAX) tablet 50 mg 08/06/2020 07:39:32 PM EDT 50 mg Oral active 50 mg, Oral, Every 6 hours PRN, Anxiety, Starting on Sun08/06/20 at 1939, For 30 days [facility] Medication administered onsite Trazodone Hydrochloride 50 MG Oral Tablet trazodone (D ESYREL) tablet 50 mg trazodone (DESYREL) tablet 50 mg 08/06/2020 07:39:25 PM EDT 50 mg Oral active 50 mg, Oral, Nightly PRN, Sleep, Starting on Sun08/06/20 at 1939, For 30 days [facility] Medication administered onsite Aluminum Hydroxide 40 [...] on Sun08/06/20 at 1939, For 30 days [facility] Medication administered onsite Magnesium Hydroxide 80 [...] creatinine > 2 notify provider before administering.
[facility] Medication administered onsite Acetaminophen 325 MG [...] mg from all sources in 24 hours.
[facility] Medication administered onsite Clonidine Hydrochloride 0.2 MG Oral Tablet cloNIDine ( CATAPRES) tablet 0.2 mg cloNIDine (CATAPRES) tablet 0.2 mg 08/06/2020 07:36:40 PM EDT 0.2 mg Oral active 0.2 mg, Oral, Three Times Daily-PRN, anxiety, Indications: anxiety, Starting on Sun08/06/20 at 1936, For 30 days [facility] Medication administered onsite benztropine mesylate 1 MG Oral Tablet benztropine (COG ENTIN) tablet 1 mg benztropine (COGENTIN) tablet 1 mg 08/06/2020 07:36:33 PM EDT 1 mg Oral aborted 1 mg, Oral, 2 Times Daily PRN, Tremor, Starting on Sun08/06/20 at 1936, For 30 days [facility] Medication administered onsite 20 mg 08/06/2020 [...] 600 mg by mouth Three times daily [facility] 250 mg/5 mL 07/01/2020 12:00:00 AM [...] {capsule_at_bedtime} active Doxepin HCl 25 MG eCW1 ([facility]) Doxepin Hydrochloride 25 MG Oral Capsule Doxepin HCl 25 MG D oxepin HCl 25 MG 03/09/2020 12:00:00 AM EST 1.0 {capsule_at_bedtime} active Doxepin HCl 25 MG eCW1 ([facility]) Doxepin Hydrochloride 25 MG Oral Capsule Doxepin HCl 25 MG D oxepin HCl 25 MG 03/09/2020 12:00:00 AM EST 1.0 {capsule_at_bedtime} active Doxepin HCl 25 MG eCW1 ([facility]) Doxepin Hydrochloride 25 MG Oral Capsule Doxepin HCl 25 MG D oxepin HCl 25 MG 03/09/2020 12:00:00 AM EST 1.0 {capsule_at_bedtime} active Doxepin HCl 25 MG eCW1 ([facility]) Doxepin Hydrochloride 25 MG Oral Capsule Doxepin HCl 25 MG D oxepin HCl 25 MG 03/09/2020 12:00:00 AM EST 1.0 {capsule_at_bedtime} active Doxepin HCl 25 MG eCW1 ([facility]) Doxepin Hydrochloride 25 MG Oral Capsule Doxepin HCl 25 MG D oxepin HCl 25 MG 03/09/2020 12:00:00 AM EST 1.0 {capsule_at_bedtime} active Doxepin HCl 25 MG eCW1 ([facility]) Doxepin Hydrochloride 25 MG Oral Capsule Doxepin HCl 25 MG D oxepin HCl 25 MG 03/09/2020 12:00:00 AM EST 1.0 {capsule_at_bedtime} active Doxepin HCl 25 MG eCW1 ([facility]) Doxepin Hydrochloride 25 MG Oral Capsule Doxepin HCl 25 MG D oxepin HCl 25 MG 03/09/2020 12:00:00 AM EST 1.0 {capsule_at_bedtime} active Doxepin HCl 25 MG eCW1 ([facility]) Doxepin Hydrochloride 25 MG Oral Capsule Doxepin HCl 25 MG D oxepin HCl 25 MG 03/09/2020 12:00:00 AM EST 1.0 {capsule_at_bedtime} active Doxepin [facility] MG [facility] Doxepin Hydrochloride 25 MG Oral Capsule Doxepin HCl 25 MG D oxepin HCl 25 MG 03/09/2020 12:00:00 AM EST 1.0 {capsule_at_bedtime} active Doxepin HCl 25 MG [facility]CW1 [facility] Doxepin Hydrochloride 25 MG Oral Capsule Doxepin HCl 25 MG D oxepin HCl 25 MG 03/09/2020 12:00:00 AM EST 1.0 {capsule_at_bedtime} active Doxepin HCl 25 MG eCW1 ([facility]) Doxepin Hydrochloride 25 MG Oral Capsule Doxepin HCl 25 MG D oxepin HCl 25 MG 03/09/2020 12:00:00 AM EST 1.0 {capsule_at_bedtime} active Doxepin HCl 25 MG eCW1 ([facility]) Doxepin Hydrochloride 25 MG Oral Capsule Doxepin HCl 25 MG D oxepin HCl 25 MG 03/09/2020 12:00:00 AM EST 1.0 {capsule_at_bedtime} active Doxepin HCl 25 MG eCW1 ([facility]) Doxepin Hydrochloride 25 MG Oral Capsule Doxepin HCl 25 MG D oxepin HCl 25 MG 03/09/2020 12:00:00 AM EST 1.0 {capsule_at_bedtime} active Doxepin HCl 25 MG eCW1 ([facility]) Doxepin Hydrochloride 25 MG Oral Capsule Doxepin HCl 25 MG D oxepin HCl 25 MG 03/09/2020 12:00:00 AM EST 1.0 {capsule_at_bedtime} active Doxepin HCl 25 MG eCW1 ([facility]) Doxepin Hydrochloride 25 MG Oral Capsule Doxepin HCl 25 MG D oxepin HCl 25 MG 03/09/2020 12:00:00 AM EST 1.0 {capsule_at_bedtime} active Doxepin HCl 25 MG eCW1 ([facility]) Doxepin Hydrochloride 25 MG Oral Capsule Doxepin HCl 25 MG D oxepin HCl 25 MG 03/09/2020 12:00:00 AM EST 1.0 {capsule_at_bedtime} active Doxepin HCl 25 MG eCW1 ([facility]) Doxepin Hydrochloride 25 MG Oral Capsule Doxepin HCl 25 MG D oxepin HCl 25 MG 03/09/2020 12:00:00 AM EST 1.0 {capsule_at_bedtime} active Doxepin HCl 25 MG eCW1 ([facility]) Doxepin Hydrochloride 25 MG Oral Capsule Doxepin HCl 25 MG D oxepin HCl 25 MG 03/09/2020 12:00:00 AM EST 1.0 {capsule_at_bedtime} active Doxepin HCl 25 MG eCW1 ([facility]) Doxepin Hydrochloride 25 MG Oral Capsule Doxepin HCl 25 MG D oxepin HCl 25 MG 03/09/2020 12:00:00 AM EST 1.0 {capsule_at_bedtime} active Doxepin HCl 25 MG eCW1 ([facility]) Doxepin Hydrochloride 25 MG Oral Capsule Doxepin HCl 25 MG D oxepin HCl 25 MG 03/09/2020 12:00:00 AM EST 1.0 {capsule_at_bedtime} active Doxepin HCl 25 MG eCW1 ([facility]) Doxepin Hydrochloride 25 MG Oral Capsule Doxepin HCl 25 MG D oxepin HCl 25 MG 03/09/2020 12:00:00 AM EST 1.0 {capsule_at_bedtime} active Doxepin HCl 25 MG eCW1 ([facility]) Doxepin Hydrochloride 25 MG Oral Capsule Doxepin HCl 25 MG D oxepin HCl 25 MG 03/09/2020 12:00:00 AM EST 1.0 {capsule_at_bedtime} active Doxepin HCl 25 MG eCW1 ([facility]) Doxepin Hydrochloride 25 MG Oral Capsule Doxepin HCl 25 MG D oxepin HCl 25 MG 03/09/2020 12:00:00 AM EST 1.0 {capsule_at_bedtime} active Doxepin HCl 25 MG eCW1 ([facility]) 8-2 mg 03/03/2020 12:00:00 AM [...] activ e cloNIDine HCl 0.2 MG eCW1 ([facility]) Clonidine Hydrochloride 0.2 MG Oral Tablet Clonidine H Cl 0.2 MG Clonidine HCl 0.2 MG 12/24/2019 12:00:00 AM EDT 1.0 {tablet} activ e Clonidine HCl 0.2 MG eCW1 ([facility]) Clonidine Hydrochloride 0.2 MG Oral Tablet Clonidine H Cl 0.2 MG Clonidine HCl 0.2 MG 12/24/2019 12:00:00 AM EDT 1.0 {tablet} activ e Clonidine HCl 0.2 MG eCW1 ([facility]) Clonidine Hydrochloride 0.2 MG Oral Tablet Clonidine H Cl 0.2 MG Clonidine HCl 0.2 MG 12/24/2019 12:00:00 AM EDT 1.0 {tablet} activ e Clonidine HCl 0.2 MG eCW1 ([facility]) Clonidine Hydrochloride 0.2 MG Oral Tablet Clonidine H Cl 0.2 MG Clonidine HCl 0.2 MG 12/24/2019 12:00:00 AM EDT 1.0 {tablet} activ e Clonidine HCl 0.2 MG eCW1 ([facility]) Clonidine Hydrochloride 0.2 MG Oral Tablet Clonidine H Cl 0.2 MG Clonidine HCl 0.2 MG 12/24/2019 12:00:00 AM EDT 1.0 {tablet} activ e Clonidine HCl 0.2 MG eCW1 ([facility]) Clonidine Hydrochloride 0.2 MG Oral Tablet Clonidine H Cl 0.2 MG Clonidine HCl 0.2 MG 12/24/2019 12:00:00 AM EDT 1.0 {tablet} activ e Clonidine HCl 0.2 MG eCW1 ([facility]) Clonidine Hydrochloride 0.2 MG Oral Tablet Clonidine H Cl 0.2 MG Clonidine HCl 0.2 MG 12/24/2019 12:00:00 AM EDT 1.0 {tablet} suspe nded Clonidine HCl 0.2 MG eCW1 ([facility]) Clonidine Hydrochloride 0.2 MG Oral Tablet Clonidine H Cl 0.2 MG Clonidine HCl 0.2 MG 12/24/2019 12:00:00 AM EDT 1.0 {tablet} activ e Clonidine HCl 0.2 MG eCW1 ([facility]) Clonidine Hydrochloride 0.2 MG Oral Tablet Clonidine H Cl 0.2 MG Clonidine HCl 0.2 MG 12/24/2019 12:00:00 AM EDT 1.0 {tablet} activ e Clonidine HCl 0.2 MG eCW1 ([facility]) Clonidine Hydrochloride 0.2 MG Oral Tablet Clonidine H Cl 0.2 MG Clonidine HCl 0.2 MG 12/24/2019 12:00:00 AM EDT 1.0 {tablet} suspe nded Clonidine HCl 0.2 MG eCW1 ([facility]) Clonidine Hydrochloride 0.2 MG Oral Tablet Clonidine H Cl 0.2 MG Clonidine HCl 0.2 MG 12/24/2019 12:00:00 AM EDT 1.0 {tablet} activ e Clonidine HCl 0.2 MG eCW1 ([facility]) Clonidine Hydrochloride 0.2 MG Oral Tablet Clonidine H Cl 0.2 MG Clonidine HCl 0.2 MG 12/24/2019 12:00:00 AM EDT 1.0 {tablet} activ e Clonidine HCl 0.2 MG eCW1 ([facility]) Clonidine Hydrochloride 0.2 MG Oral Tablet Clonidine H Cl 0.2 MG Clonidine HCl 0.2 MG 12/24/2019 12:00:00 AM EDT 1.0 {tablet} activ e Clonidine HCl 0.2 MG eCW1 ([facility]) Clonidine Hydrochloride 0.2 MG Oral Tablet Clonidine H Cl 0.2 MG Clonidine HCl 0.2 MG 12/24/2019 12:00:00 AM EDT 1.0 {tablet} activ e Clonidine HCl 0.2 MG eCW1 ([facility]) Clonidine Hydrochloride 0.2 MG Oral Tablet Clonidine H Cl 0.2 MG Clonidine HCl 0.2 MG 12/24/2019 12:00:00 AM EDT 1.0 {tablet} activ e Clonidine HCl 0.2 MG eCW1 ([facility]) Clonidine Hydrochloride 0.2 MG Oral Tablet Clonidine H Cl 0.2 MG Clonidine HCl 0.2 MG 12/24/2019 12:00:00 AM EDT 1.0 {tablet} activ e Clonidine HCl 0.2 MG eCW1 ([facility] [facility] Clonidine Hydrochloride 0.2 MG Oral Tablet Clonidine H Cl 0.2 MG Clonidine HCl 0.2 MG 12/24/2019 12:00:00 AM EDT 1.0 {tablet} activ e Clonidine HCl 0.2 MG eCW1 ([facility]an) Clonidine Hydrochloride 0.2 MG Oral Tablet Clonidine H Cl 0.2 MG Clonidine HCl 0.2 MG 12/24/2019 12:00:00 AM EDT 1.0 {tablet} activ e Clonidine HCl 0.2 MG eCW1 ([facility]) Clonidine Hydrochloride 0.2 MG Oral Tablet Clonidine H Cl 0.2 MG Clonidine HCl 0.2 MG 12/24/2019 12:00:00 AM EDT 1.0 {tablet} activ e Clonidine HCl 0.2 MG eCW1 ([facility]) Clonidine Hydrochloride 0.2 MG Oral Tablet Clonidine H Cl 0.2 MG Clonidine HCl 0.2 MG 12/24/2019 12:00:00 AM EDT 1.0 {tablet} activ e Clonidine HCl 0.2 MG eCW1 ([facility]) Clonidine Hydrochloride 0.2 MG Oral Tablet Clonidine H Cl 0.2 MG Clonidine HCl 0.2 MG 12/24/2019 12:00:00 AM EDT 1.0 {tablet} activ e Clonidine HCl 0.2 MG eCW1 ([facility]) Clonidine Hydrochloride 0.2 MG Oral Tablet Clonidine H Cl 0.2 MG Clonidine HCl 0.2 MG 12/24/2019 12:00:00 AM EDT 1.0 {tablet} activ e Clonidine HCl 0.2 MG eCW1 ([facility]) Clonidine Hydrochloride 0.2 MG Oral Tablet Clonidine H Cl 0.2 MG Clonidine HCl 0.2 MG 12/24/2019 12:00:00 AM EDT 1.0 {tablet} suspe nded Clonidine HCl 0.2 MG eCW1 ([facility]) Clonidine Hydrochloride 0.2 MG Oral Tablet Clonidine H Cl 0.2 MG Clonidine HCl 0.2 MG 12/24/2019 12:00:00 AM EDT 1.0 {tablet} activ e Clonidine HCl 0.2 MG eCW1 ([facility]) Clonidine Hydrochloride 0.2 MG Oral Tablet Clonidine H Cl 0.2 MG Clonidine HCl 0.2 MG 12/24/2019 12:00:00 AM EDT 1.0 {tablet} activ e Clonidine HCl 0.2 MG eCW1 ([facility]) Clonidine Hydrochloride 0.2 MG Oral Tablet Clonidine H Cl 0.2 MG Clonidine HCl 0.2 MG 12/24/2019 12:00:00 AM EDT 1.0 {tablet} activ e Clonidine HCl 0.2 MG eCW1 ([facility]) Clonidine Hydrochloride 0.2 MG Oral Tablet Clonidine H Cl 0.2 MG Clonidine HCl 0.2 MG 12/24/2019 12:00:00 AM EDT 1.0 {tablet} activ e Clonidine HCl 0.2 MG eCW1 ([facility]) Clonidine Hydrochloride 0.2 MG Oral Tablet Clonidine H Cl 0.2 MG Clonidine HCl 0.2 MG 12/24/2019 12:00:00 AM EDT 1.0 {tablet} activ e Clonidine HCl 0.2 MG eCW1 ([facility]) Clonidine Hydrochloride 0.2 MG Oral Tablet Clonidine H Cl 0.2 MG Clonidine HCl 0.2 MG 12/24/2019 12:00:00 AM EDT 1.0 {tablet} activ e Clonidine HCl 0.2 MG eCW1 ([facility]) Clonidine Hydrochloride 0.2 MG Oral Tablet Clonidine H Cl 0.2 MG Clonidine HCl 0.2 MG 12/24/2019 12:00:00 AM EDT 1.0 {tablet} activ e Clonidine HCl 0.2 MG eCW1 ([facility]) Clonidine Hydrochloride 0.2 MG Oral Tablet Clonidine H Cl 0.2 MG Clonidine HCl 0.2 MG 12/24/2019 12:00:00 AM EDT 1.0 {tablet} activ e Clonidine HCl 0.2 MG eCW1 ([facility]) Clonidine Hydrochloride 0.2 MG Oral Tablet Clonidine H Cl 0.2 MG Clonidine HCl 0.2 MG 12/24/2019 12:00:00 AM EDT 1.0 {tablet} activ e Clonidine HCl 0.2 MG eCW1 ([facility]) Clonidine Hydrochloride 0.2 MG Oral Tablet cloNIDine H Cl 0.2 MG cloNIDine HCl 0.2 MG 12/24/2019 12:00:00 AM EDT 1.0 {tablet} activ e cloNIDine HCl 0.2 MG eCW1 ([facility]) Clonidine Hydrochloride 0.2 MG Oral Tablet Clonidine H Cl 0.2 MG Clonidine HCl 0.2 MG 12/24/2019 12:00:00 AM EDT 1.0 {tablet} activ e Clonidine HCl 0.2 MG eCW1 ([facility]) 300 mg 12/13/2019 12:00:00 [...] 1.0 {tablet_at_bedtime} active Clonazepam 0.5 MG eCW1 ([facility]) lisdexamfetamine dimesylate 50 MG Oral Capsule [Vyvans e] Vyvanse 50 MG Vyvanse 50 MG 11/04/2019 12:00:00 AM EDT 1.0 {capsule_in_the_morning} active Vyvanse 50 MG eCW1 ([facility]) Citalopram 20 MG Oral Tablet [Celexa] Celexa 20 MG Celexa 20 MG 11/04/2019 12:00:00 AM EDT 1.0 {tablet} active Ce elise 20 MG eCW1 ([facility]) Citalopram 20 MG Oral Tablet [Celexa] Celexa 20 MG Celexa 20 MG 11/04/2019 12:00:00 AM EDT 1.0 {tablet} active Ce elise 20 MG eCW1 ([facility]) lisdexamfetamine dimesylate 50 MG Oral Capsule [Vyvans e] Vyvanse 50 MG Vyvanse 50 MG 11/04/2019 12:00:00 AM EDT 1.0 {capsule_in_the_morning} active Vyvanse 50 MG eCW1 ([facility]) Clonazepam 0.5 MG Oral Tablet Clonazepam 0.5 MG 11/04/2019 12:00:00 AM EDT 1.0 {tablet_at_bedtime} active Clonazepam 0.5 MG eCW1 ([facility]) 2 mg 11/04/2019 12:00:00 AM EDT tablet [...] 12:00:00 AM EDT 1.0 {tablet} active Ce elies 20 MG eCW1 ([facility]) 75 mg 11/02/2019 12:00:00 AM [...] naloxone 3 MG Sublingual Film [Suboxone] MATIAS ([facility]) Sumatriptan 25 MG Oral Tablet sumatripta n 25 mg tablet TAKE ONE TABLET BY MOUTH TWICE A DAY NEEDED FOR MIGRAINE sumatriptan 25 mg tablet TAKE ONE TABLET BY MOUTH TWICE A DAY NEEDED FOR MIGRAINE completed sumatriptan 25 MG Oral Tablet [facility] ([facility]) Levetiracetam 1000 MG Oral Tablet levetiracetam (KEPPR A) 1000 MG tablet levetiracetam (KEPPRA) 1000 MG tablet 1000 mg Oral aborted Take 1,000 mg by mouth Two Times Daily [facility] Trazodone Hydrochloride 50 MG Oral Table t traZODone HCl 50 MG Oral Tablet (DESYREL) traZODone HCl 50 MG Oral Tablet (DESYREL) 50 mg Oral aborted Take 50 mg by mouth nightly [facility] Lurasidone Hydrochloride 40 MG Oral Tabl et Lurasidone HCl 40 MG Oral Tablet (LATUDA) Lurasidone HCl 40 MG Oral Tablet (LATUDA) 20 mg Oral aborted Take 20 mg by mouth daily [facility] gabapentin 300 MG Oral Capsule Gabapentin 300 MG Oral Capsule (NEURONTIN) Gabapentin 300 MG Oral Capsule (NEURONTIN) 600 mg Oral aborted Take 600 mg by mouth Three times daily [facility] 24 HR Nicotine 0.875 MG/HR Transdermal P atch Nicotine 21 MG/24HR Transdermal Patch 24 Hour (NICODERM CQ) Nicotine 21 MG/24HR Transdermal Patch 24 Hour (NICODERM CQ) 1 {patch} Transdermal aborted Place 1 patch onto the skin every 24 (twenty-four) hours [facility] Clonidine Hydrochloride 0.2 MG Oral Tabl et cloNIDine HCl 0.2 MG Oral Tablet (CATAPRES) cloNIDine HCl 0.2 MG Oral Tablet (CATAPRES) 0.2 mg O ral aborted Take 0.2 mg by mouth Three times daily as needed [facility] benztropine mesylate 1 MG Oral Tablet Be nztropine Mesylate 1 MG Oral Tablet (COGENTIN) Benztropine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 Hemoglobin [Mass/volume] in Blood 12.5 g/dL 11.5-15.5 [facility] Hematocrit [Volume Fraction] of Blood by Automated count 37.5 % 3 6-45 [facility] Erythrocyte mean corpuscular volume [Entitic volume] by Auto mated count 87.8 fL 80-96 [facility] Erythrocyte mean corpuscular hemoglobin [Entitic mass] by Automated count 29.2 pg 27-33 [facility] Erythrocyte mean corpuscular hemoglobin concentration [Mass/volume] by Automated count 33.3 g/dL 32.0-[facility].0 [facility] distribution width [Ratio] by Automated count 14.0 % 11.5-14.5 [facility] Platelets [#/volume] in Blood by Automated count 261 10*3/uL 150-400 [facility] Differential cell count method - Blood [facility] Neutrophils/100 leukocytes in Blood by Automated count 32 % [facility] Lymphocytes/100 leukocytes in Blood by Automated count 55 % [facility] Monocytes/100 leukocytes in Blood by Automated count 9 % [facility] Eosinophils/100 leukocytes in Blood by Automated count 3 % [facility] Basophils/100 leukocytes in Blood by Automated count 1 % [facility] Neutrophils [#/volume] in Blood by Automated count 1.46 10*3/uL 1.8-7 .0 L [facility] Lymphocytes [#/volume] in Blood by Automated count 2.51 10*3/uL 1.2-4 .0 [facility] Monocytes [#/volume] in Blood by Automated count 0.43 10*3/uL 0-0.8 [facility] Eosinophils [#/volume] in Blood by Automated count 0.16 10*3/uL 0-0.5 [facility] Basophils [#/volume] in Blood by Automated count 0.03 10*3/uL 0-0.2 [facility] Nucleated erythrocytes/100 leukocytes [Ratio] in Blood by Automated count 0 /100{WBCs} 0-0 [facility] ID Date Data Source [id number] 09/17/2020 08:03:16 AM [facility] Name Value Range Interpretation Code Description Data [place] rce(s) Supporting Document(s) Cholesterol [Mass/volume] in Serum or Plasma 169 mg/dL <200 [facility] Triglyceride [Mass/volume] in Serum or Plasma 229 mg/dL <150 H [facility] Cholesterol in HDL [Mass/volume] in Serum or Plasma 38 mg/dL >50 L [facility] Cholesterol in LDL [Mass/volume] in Serum or Plasma by calcu lation 85 mg/dL <100 [facility] Cholesterol in VLDL [Mass/volume] in Serum or Plasma by calc ulation 46 mg/dl 16-42 H [facility] Cholesterol non HDL [Mass/volume] in Serum or Plasma 131 mg/dL <130 H [facility] ID Date Data Source [id number] 09/17/2020 08:03:16 AM [facility] Name Value Range Interpretation Code Description Data [place] rce(s) Supporting Document(s) Albumin [Mass/volume] in Serum or Plasma by Bromocresol green (BCG) dye binding method 4.0 g/dL 3.5-5.2 [facility] Bilirubin.total [Mass/volume] in Serum or Plasma <1.2 [facility] Calcium [Mass/volume] in Serum or Plasma 9.3 mg/dL 8.6-10.0 [facility] Chloride [Moles/volume] in Serum or Plasma 101 mmol/L 98-107 [facility] Creatinine [Mass/volume] in Serum or Plasma 0.66 mg/dL 0.50-0.90 [facility] Glucose [Mass/volume] in Serum or Plasma 115 mg/dL 70-140 [facility] Alkaline phosphatase [Enzymatic activity/volume] in Serum or Plasma 59 U/L 35-104 [facility] Potassium [Moles/volume] in Serum or Plasma 4.2 mmol/L 3.4-5.1 [facility] Protein [Mass/volume] in Serum or Plasma 6.5 g/dL 6.4-8.3 [facility] Sodium [Moles/volume] in Serum or Plasma 138 mmol/L 136-145 [facility] Aspartate aminotransferase [Enzymatic activity/volume] in Serum or Plasma 16 U/L <32 [facility] Urea nitrogen [Mass/volume] in Serum or Plasma 13 mg/dL 6-20 [facility] Osmolality of Serum or Plasma by calculation 287 mosm/kg 275-300 [facility] Creatinine/Urea nitrogen [Mass Ratio] in Serum or Plasma 20 [facility] Bicarbonate [Moles/volume] in Serum 27 mmol/L 22-29 [facility] Alanine aminotransferase [Enzymatic activity/volume] in Seru m or Plasma 13 U/L <33 [facility] Anion gap 3 in Serum or Plasma 9 mmol/L 8-15 [facility] Glomerular filtration rate/1.73 sq M pre dicted among non-blacks [Volume Rate/Area] in Serum or Plasma by Creatinine-based formula (MDRD) >6 0 [facility] Glomerular filtration rate/1.73 sq M pre dicted among blacks [Volume Rate/Area] in Serum or Plasma by Creatinine-based formula (MDRD) >60 [facility] ID Date Data Source [id number] 09/17/2020 08:03:16 AM [facility] Name Value Range Interpretation Code Description Data [place] rce(s) Supporting Document(s) Thyrotropin [Units/volume] in Serum or Plasma 1.400 u[IU]/mL 0.270-4. 200 [facility] ID Date Data Source [id number] 09/17/2020 07:50:56 AM [facility] Name Value Range Interpretation Code Description Data [place] rce(s) Supporting Document(s) Hemoglobin A1c/Hemoglobin.total in Blood by HPLC 4.9 % 4.0-6.0 [facility] Glucose mean value [Mass/volume] in Blood Estimated fr om glycated hemoglobin 94 mg/dL <126 [facility] ID Date Data Source [id number] 09/12/2020 03:49:17 PM EDT [facility] Name Value Range Interpretation Code Description Data [place] rce(s) Supporting Document(s) History and Physical Health system EOTFUj6vCaUIQeXd25/LFIvwVAQmb2XuXKqlRCu8MFrhZNEnF2TtXLF6aR7jEGB8MJbBLvQzBuZmLlN3 lbm [file] [facility]+Ws455Cek+48dl1ev5yNkisEbDHOF/gXdXw/GCUUEGubA0eMpKnvFpcYoottNvJk5efTfC3/G2C0w [file] AgICAgICAgICAgICAgICAgICAgICAgICAgICAgICAgICAgICAgICAgICAgICAgICAgICAgICAgICAgIC XhKQDrGPDgZLWdIFBnIY5LIMZjCQZdEFUxTIGdXIPsWFXmNIWkFBUsRONcTWYhPZVdDVQoVAFmTIXaZN AgICAgICAgICAgICAgICAgICAgICAgICAgICAgICAg XZNySGHfQIEnGEZoZZKfQHVkKPHuWINvLU7JDYSaQWVuTSDhAFJcYOMcPGPnVZJhVKMjXXWyTZWbJMAv ICAgICAgICAgICAgICAgICAgICAgICAgICAgICAgICAgICAgICAgICAgICAgICAgICAgICAgICAgICAg GNSkBVJaBY7NTGKkTTXkVIRnQIXcNZUfTEDdOTXaCG AgICAgICAgICAgICAgICAgICAgICAgICAgICAgICAgICAgICAgICAgICAgICAgICAgICAgICAgICAgIC PwLNAeBGFtDIUjDGLnTWMxKL6PHYQdMIVjJZSiZGAcUWBjFFOgHOMoAMToCWDgLHKwZQWuIGShYCRnGO AgICAgICAgICAgICAgICAgICAgICAgICAgICAgICAg FRPkTONzPKFdYQYbKOCaZLMoUPUoRJVlESQcXO4CVCUxGLKxFEUgZCZjIYVrHRRoHBNbIQOrSBIsKQFf ICAgICAgICAgICAgICAgICAgICAgICAgICAgICAgICAgICAgICAgICAgICAgICAgICAgICAgICAgICAg TFVoNUGjAWKiNV1GSYVwCQWePAUfYQMtLCGoXTNhXC AgICAgICAgICAgICAgICAgICAgICAgICAgICAgICAgICAgICAgICAgICAgICAgICAgICAgICAgICAgIC JfZITkSCBdDWGmSZYuABHkEYEwEP6KZCNgJFHlPDEsAHVfNAQtTYBtOFDdWDDhOHXnKGTiDAAgSXQfBY AgICAgICAgICAgICAgICAgICAgICAgICAgICAgICAg WDBbECEiIRNcEWPnDZGbGDKxCWRcBNIoHTHvYDQgDR2MNRKyGPCkNBIiNVFrLXTnRRLuVYLlMOGpFQPl ICAgICAgICAgICAgICAgICAgICAgICAgICAgICAgICAgICAgICAgICAgICAgICAgICAgICAgICAgICAg YGEaCQJwKSFdUGKmII5QVIGvEVKgOCBaTAMcNZVxVP AgICAgICAgICAgICAgICAgICAgICAgICAgICAgICAgICAgICAgICAgICAgICAgICAgICAgICAgICAgIC ThEJDdINSjUUEwRZNmQRHbGTOzUMBzQL0FLR47rNDrn8J1MQOgHE1qwbs/Bj0YVObuubXpeTTxZR6WHz TxVV1ohg0WPfCcMV2vti9HKBiANxUlA5J4xATkIZKz OMLFNvWnQ86vJBjmLy30THarYEVaVnUrBYl0Hb3RAtQnQ1xcZRWcCjJ4VBEdBfW1SRZdMiT0YVRjVxVm TYLoUKBdJJElECRJIBS0GZIlTdUlDkPhKRMfZLgfDKGVIA0PDiWlX9HaaV29PAjSEf8+DQplbmRvYmoN YrI7DRIhh6IjQSp4OU7ZFCEgSgkdj5KcJMWkURRIAS fjIG9GBVF2WGC8GJKpQm4JYIMwX854gpXrPJ0ANb6BAvZtTB7yan8HXNDdJMYiZpqSEvd7LMxhIF9JbW DpBIvAWhVmQecyYY2cyFVZAJZeKJZdBP6HQQQ8TAttJYqkHtXcYSLjWKqwVCHXWGbDWrFoT5Kls9YjKq A7BAAuNlWhNGatDPPtVgE0OF04rQbfSS5XHYVhNFUq LQ00DBX8PWRxBa2GEg3SVfXoSC7qxw8SXFkyGYKaEkzMJmf6VYcdAR4UsUHkP6UygSWim8rGFuEfS4NJ QSDgCJYmGo0CUXIfWkBnCMGgQTjlIU8cYYCwKLRCbYulrzR2BS8WME0gzbDvMZ4TNzXaKy6iCs0XHsPj R9ZvF7XdSWMrVRFBHUgzBE8QZOtfCX8wGK2Tv9ZTzF TwzO6rij0ELCWrFSOwWgeyhu1IIuhtV3H5eBqvQCCeXPElNBEPJYedIU8YDTRwBEA6CTT8EWQoWUMDKf TtV38rWB3YC3Brm69jDsU1KDAhJqYbBXjrBD09fItlyxYjqWSlhQhkUE3ARt1+DQplbmRvYmoNCnhyZW EKNiJeCHyGTcSkSLUlVKJfKEMmRtS4HaWzEo1RFLGg GRCkHOOmLoEvYACsWZWsLEdzKOGkWAB1WBliRANfYTUoRK0EZbMfLBQcEDAtNaYyJSOaWUYfxn7CZGSi DJUfKHQ3LhHdODKsAIBaHIqrCNKzUIPdASb1QQZxFGUjLU2LBzCtWWQaWHA5YTBqOBPtAALnuw3WKRSp NMNhEoi8HaAwYBZlSLYvFLmyADDiPTS0CVF1YTJaAL HyGB4YDsCxSLCeGAz7SlchXRUgVVQozb2BJKHtOTFiJEW3ZkZiTDGsEQIfOIsoRSZoKQAzKPO6CBPaSJ ChTN2CTcTfNILoVLR9FqBmHTUbXQIgxr6DWRLkNEArZhKaNOXrDRXvBMYgVQdbYBBjSSO7DHP8LNUxWK XmZJ5IJxJmTLXdDwT6XXPwWXEgJKWueq9CVUNcOBFv RMWuQpKyDZYaJYZrKFopYXMtZRU5ZkN7UHOsSFIrYP5NXzInUIYuMqQ5KgWkHIXfQXGlsi4SEJDyXGUd VLJbBoUlJTOeYSHbSWxdVEYfLLR5WtJaQWWhSOVrMK7OWjSdPLRrYbJzUQVtAUCqJADrby4VXGJwTTLt QrD6HNXhDTAoMHQwALjoZKJcYGD9QfhmCKTmNOSxKK 8EHnIoZFJdLrx9QiBySRUoNGEiio7SSWLhSTIkZefxAPIoCPCeGKCkAYzzAQAoLIR1EYHuFJTsSLJfXS 7XKsMxCQJyUin7FXArZSSqBRLtkk1QSFQfISLkNTF0RCEoVTBcIRQoYEbdCJJpRTT5TfSzOMKmOKYzVM 3KEkLcLLGoJcPpIeXfMIJaJUWgpf2SXMHvTNMoBGNw KaYsKWYcAZUfWRxjXWVoGYIfRvA0LAPjVQFtUR5DQtLsYVIyZfM6McTeIJWuDMSfrq1SJJFyJMPjPKr9 FJCrAKQjOIJhPFvrBFWaVQMsRPi3MUBlYWIcMA6KQkVqQGPpVmA3CpHyQFBxMLNyve5ORDCvJPMmRhI1 FrJiKYLcCYUkGWsaALQiXBI0BKk9LFFuAYOfET2AJq IxRBSlSra8PIgkMYObWWUbdn1YACDmRFBgYbu6JDZkNZAtVLZfJLmkZLNtWSF6JBsaTINvRPVtXC1KJw OzPLRoItwnQwBkZNRhGMMtec9VEDTrIOMtMFZ4UKIkNSDjPBQqVIraGPEjWOJ8VRX2FMRfNIUeNY8PFy DePKJuYZK1EpMfCLArWQPlhi9RVSRlDVU4MHM0SFGv BTKmTLIyNUipPEEhASFsFdY7GIXoCHFeEH8DLxRgCMlkUSLYOni1NPabA7w8UJO0KG0NP0Fbt4AcILew IDEHYMtxAO9ngqDhIWBpAn8OQ3hDScuyK1H3DNGhIPCiOgPuOMW4KSBtSJPxNOMvIBPnPYLbDE3dZEJ0 KWXdPDVlPdN9NiWbZCbyDNL2VaD1ZdEdUVKtYFC4Ij WrLJ6MBp1CCcH4ZMP8sZNbTq3EPFW1UgLZIfXyAK6GROb= ID Date Data Source [id number] 09/12/2020 03:48:52 PM EDT [facility] Name Value Range Interpretation Code Description Data [place] rce(s) Supporting Document(s) History and Physical Health system IEOVZq0wKdTPNpPx29/UEXewJJZys0QsRAqhKQr7BVngTBVuM0JaWER0bL7sVFZ9FClNCtNsRkUvGoM6 lbm [file] ICAgICAgICAgICAgICAgICAgICAgICAgICAgICAgICAgICAgICAgICAgICAgICAgICAgICAgICAgICAg ICAgDQogICAgICAgICAgICAgICAgICAgICAgICAgIC AgICAgICAgICAgICAgICAgICAgICAgICAgICAgICAgICAgICAgICAgICAgICAgICAgICAgICAgICAgIC AgICAgICAgICAgICAgDQogICAgICAgICAgICAgICAgICAgICAgICAgICAgICAgICAgICAgICAgICAgIC AgICAgICAgICAgICAgICAgICAgICAgICAgICAgICAg ICAgICAgICAgICAgICAgICAgICAgICAgDQogICAgICAgICAgICAgICAgICAgICAgICAgICAgICAgICAg ICAgICAgICAgICAgICAgICAgICAgICAgICAgICAgICAgICAgICAgICAgICAgICAgICAgICAgICAgICAg ICAgICAgDQogICAgICAgICAgICAgICAgICAgICAgIC AgICAgICAgICAgICAgICAgICAgICAgICAgICAgICAgICAgICAgICAgICAgICAgICAgICAgICAgICAgIC AgICAgICAgICAgICAgICAgDQogICAgICAgICAgICAgICAgICAgICAgICAgICAgICAgICAgICAgICAgIC AgICAgICAgICAgICAgICAgICAgICAgICAgICAgICAg ICAgICAgICAgICAgICAgICAgICAgICAgICAgDQogICAgICAgICAgICAgICAgICAgICAgICAgICAgICAg ICAgICAgICAgICAgICAgICAgICAgICAgICAgICAgICAgICAgICAgICAgICAgICAgICAgICAgICAgICAg ICAgICAgICAgDQogICAgICAgICAgICAgICAgICAgIC AgICAgICAgICAgICAgICAgICAgICAgICAgICAgICAgICAgICAgICAgICAgICAgICAgICAgICAgICAgIC AgICAgICAgICAgICAgICAgICAgDQogICAgICAgICAgICAgICAgICAgICAgICAgICAgICAgICAgICAgIC AgICAgICAgICAgICAgICAgICAgICAgICAgICAgICAg ICAgICAgICAgICAgICAgICAgICAgICAgICAgICAgDQogICAgICAgICAgICAgICAgICAgICAgICAgICAg ICAgICAgICAgICAgICAgICAgICAgICAgICAgICAgICAgICAgICAgICAgICAgICAgICAgICAgICAgICAg UMNmXNPhEYKqYRYuBMq8Z1bgYUXrZENpGM6dWPq6Iz 8+ESkMWcJtNWE3byDksS4YZP8dn8QoTDigAINan4KnAPk2JH9TRVDqVKckLR6DQJzcck5FEADcQVWgaR VJp1sxSvIvAHC6MTTeGlwoRU3ERFMbS2hmoqLpHBBqTXOLKPtyHWPVNVgyHCOSPNSnZBPrBlMwIsKvIH RuHS5PVVOgQ949izBwVR5UAs0QRfXjOE0rys5XFnKq KOQxRhnEDri4MUunOU6WsVRzcBGtEgKqQAQHHfOrG5nzt8MrPooxNZDBTMxfOU8Kj4OljNIkMJk+Pg0K FW4qu2XnTEnlOkVkYV0att1URUhVOkYwA6EyeCknBNqwPMQpzTJMQIMqBSLdSAwuFrH9DMRTXSNrnVI0 KfU0AmYyDbAdFLp5PINhAQ3jUXpyUS7QUBG9VJygUF IoEBFeX1bLQfGpIKXmJjMpbEzbLP1VNrPzF1UdpdQrwLZzQzBuOGGIUh3+KJfncjXxFjdOTsO9NBOyt2 QtDEj8OS9MBNGwVWtjJW2LWVJzmO3vYAdnMB4EMtBtPLGmLKRZKqBmA28zoACeFXc4B5CdZyWpHMFgKq lsZXMgPDwvTmFtZXMgWyBdDQogID4+ID4+ORwbLN7K AFtrnsIqTBGwFo9SZXCyYOZwKD3zLJVrIGUkX8L2uVdsBZRNOiGhJ0atfkkaHI4uQUEyG770zJcredHl YBM2QYCpUg7MBMNgESW2HALyoRTqWdOzYXUBBQspTP7LsMKcJCS1jG5pKRfaRZMdBPOpV3eYCkUylXlg MN51fMcvpkOvcBXxYKd+Gl3FHS5fk7TuDUb4euLiSE rwFZI0QQsgHMYgLPHcPBWmZJW6TKI2PBQBDyUvQYKzZYIsVDbpFTHrIYWgkk6GBDNnRKGiGnk0CCFvKQ WzSJUdGBwmTJNaGCA1RfC5MTEeQBCrNF2WChVjZQQvHQJsVIjkSXTsUKCohh6LWAMzPTMbNaJ6KZNqGD ZuMJUtPCgzVERpLVMoRsHnRAVgBYCzWS8JWsYxWZIt INLmBADwGHIaNYFzqu0RVQYoSGHgAnB4VPFpIIWxFHGkKDqiPYJjAAK1XkXjDJDmZANuAP4QGlKuGAHv IAq9VZHnNXAqMJYfgi8WTQJoCOUtBoIdDrPkUYUlROZmTTcvASFkJYApIrWuZZHqCFDdPW0VCgUpHWDq PNU1FyzfGCFtWMGnkv8IHKZpNKEwAtr5NJYaFJPdST SkHSukSEFkXAK1GJQ6RCHqSQBpTQ3XWgCsORRwTTXuNzUtXSHuAKCsos3IHWXoXEGfYIXhAVWvRQTtLE XxHIfkYIPbXFR1QtmsYEUwKUDyPL7FIaVlFUUhCNQ1CeQuEYRoVUHrhg0GOKIjNWOhLkI5HoQkQGLkCK RzIKwsEGPcBZT9DyDeYKEiYFZmUH5ZMhUjEMCfDMj4 KhLvXDHmUTKcuv9LOPPvTGFrYGKmEdVyRHGwKEXnBVkmZDOxPZH4Ctr2CEQbAIZjXD4WNvYtBVPqThf7 LBZrMTYaWXTmwl2GEGGqYNUpQNkuXBJbGIZjHXGzXWgyTYXnBMHpJSH6DJSiLOWeQT0QRmMgGKMhGgKu USMtCTUbHQAsra1YBWSrRYRnGNM8QJVoUSZtZXSqNM jtNFRrXOIhTYKwDDNxVICfDR5JQtWxTZEjUcR5FDEbTMCaVFNlqx2FDBYrWRCjAnA8AbXeAJOoRCZxGM cbUPHdABIrKkH3GLOwKRZiOA6VEyObNCGwZsA8MtrgTUIbFDNnvd7CTHSvGPMwMdM7JPEjXWSdNHXtVP fhDIYnWWN0BZWfFDBlPKSxFG8MWvLuDJXxOeM3GZLv QHPjUHRwfb8MPVSaSOTuYMV6VNChFPXoCMKwZHt6ioRrlWQfWAp8GQ3VC7UukyJlDjuPLp6Ze316QNG7 MQGyYv1OF8guLw9wVPEhCFUTRk2BVOt1RWYcAdKeRZQ1ZDVxBQkbDUCrLEv0PhyfDIeyWPttLKH+IDwx HkQoLiNoKrJ8ZZGoVNIvAbYeFQo2YvAxUpP7TIV2PK 0vFAJSBo1+TXlqwNGuiKlgYBDCToT3Bez4NJxrMLSHFt6J ID Date Data Source [id number] 09/13/2020 01:25:53 PM EDT [facility] Service Cmnt XXX-Imp : NoneMicroorganism XXX Cult : Dispute Coordinator Mediated Amplification(TMA) is NEGATIVE for Neisseria gonorrhoeae AND NEGATIVE for Chlamydia trachomatis. Name Value Range Interpretation Code Description Data [place] rce(s) Supporting Document(s) ID Date Data Source [id number] 09/13/2020 10:45:47 AM T [facility] Service Cmnt XXX-Imp : NoneMicroorganism XXX Cult : No growth 1 day Name Value Range Interpretation Code Description Data [place] rce(s) Supporting Document(s) ID Date Data Source [id number] 09/12/2020 12:23:59 PM T [facility] Name Value Range Interpretation Code Description Data [place] rce(s) Supporting Document(s) Color of Urine [facility] Clarity of Urine [facility] Specific gravity of Urine by Refractometry automated 1.012 1.003 -1.030 [facility] pH of Urine by Automated test strip 7.0 5.0-8.0 [facility] Protein [Mass/volume] in Urine by Automated test strip Neg [facility] Glucose [Mass/volume] in Urine by Automated test strip Neg [facility] Ketones [Mass/volume] in Urine by Automated test strip Neg [facility] Bilirubin.total [Presence] in Urine by Automated test strip Negative [facility] Hemoglobin [Presence] in Urine by Automated test strip Neg [facility] A [facility] Leukocyte esterase [Presence] in Urine by Automated test strip Negative [facility] Nitrite [Presence] in Urine by Automated test strip Negati ve [facility] Leukocytes [#/area] in Urine sediment by Automated count 0 -5 [facility] Erythrocytes [#/area] in Urine sediment by Automated count 7 /HPF 0-3 H [facility] ID Date Data Source [id number] 09/09/2020 04:46:00 PM EDT [facility] 1 OrderSheet [facility] Emergency Department [address] [place] [address] Phone #: ext- [phone] 09/09/2020 16:40 Patient: BRUNA LEE Sex: F [...] Norma MD; Bruna Farrar R.N. 2 OrderSheet [facility] Emergency Department [address] [place] [address] Phone #: ext- [phone] 09/09/2020 16:40 Patient: BRUNA LEE Sex: F : 1985 Age: 35y R.N.[Electronically signed by Bruna Farrar R.N. (22:38 09/09/2020)][Electronically signed by Zaynab Steven MD (07:09/11/2020)][Electronically locked by Bruna Farrar R.N. (22:38 09/09/2020)] Name Value Range Interpretation Code Description Data [place] rce(s) Supporting Document(s) ID Date Data Source [id number] 09/09/2020 04:46:00 PM EDT [facility] 1 Medication Reconciliation Report [facility] Emergency Department [address] [place] [address] Phone #: ext- [phone] 09/09/2020 16:40 Patient: [...] Home Medication information:patient 2 Medication Reconciliation Report [facility] Emergency Department [address] [place] [address] Phone #: ext- [phone] 09/09/2020 16:40 Patient: BRUNA LEE Sex: F : 1985 Age: 35yThe following Medications were given to the patient in the Emergency Department:None.The following Medications were prescribed to the patient:None. Name Value Range Interpretation Code Description Data [place] rce(s) Supporting Document(s) ID Date Data Source [id number] 09/09/2020 04:46:00 PM EDT [facility] 1 Medication Administration Record [facility] Emergency Department [address] [place] [address] Phone #: ext- [phone] 09/09/2020 16:40 Patient: BRUNA LEE Sex: F : 1985 Age: 35yWeight: 68.9 kgHeight/Length: 60 inBMI: 29.7ALLERGIES: Sulfur, Amoxicillin, Penicillins, Bactrim, Certain antipsycoticsDate/Time Medication Administered Medication Ordered Name Value Range Interpretation Code Description Data [place] rce(s) Supporting Document(s) ID Date Data Source [id number] 09/09/2020 04:46:00 PM EDT [facility] 1 General Instructions [facility] Emergency Department [address] [place] [address] Phone #: ext- [phone] 09/09/2020 16:40 Patient: [...] Severe anxiety Feeling unreal 2 General Instructions [facility] Emergency Department [address] [place] [address] Phone #: ext- [phone] 09/09/2020 16:40 Patient: [...] providers about all of the prescription medicines, lzic-yms-ksqolit medicines, and supplements you take. Certain supplements [...] operates a toll-free ADA information line at: [phone] (voice) or [phone] (TTY). They can help you locate a local office.Follow-up careFollow up with your doctor or therapist , or as advised.Jae cleveland [phone] [phone] if you: 3 General Instructions [facility] Emergency Department [address] [place] [address] Phone #: ext- [phone] 09/09/2020 16:40 Patient: [...] yourself or others Worsening depression or anxiety [id number] [employer]. [address] [place] [address], [place] [address]. All rights reserved. This information is not intended as asubstitute for professional medical care. Always follow your healthcare professional's instructions. You have been given the following additional information: Schizophrenia, General(Electronically signed by Zaynab Steven MD 09/11/2020 07:17) 4 General Instructions [facility] Emergency Department [address] [place] [address] Phone #: ext- [phone] 09/09/2020 16:40 Patient: BRUNA LEE Sex: F : 1985 Age: 35y Name Value Range Interpretation Code Description Data [place] rce(s) Supporting Document(s) ID Date Data Source [id number] 09/09/2020 04:46:00 PM EDT [facility] 1 Clinical Report - Nurses [facility] Emergency Department [address] [place] [address] Phone #: ext- [phone] 09/09/2020 16:40 Patient: [...] Amado Chow 2 Clinical Report - Nurses [facility] Emergency Department [address] [place] [address] Phone #: ext- [phone] 09/09/2020 16:40 Patient: [...] factors identified. 3 Clinical Report - Nurses [facility] Emergency Department [address] [place] [address] Phone #: ext- [phone] 09/09/2020 16:40 Patient: [...] yell profanity 4 Clinical Report - Nurses [facility] Emergency Department [address] [place] [address] Phone #: ext- [phone] 09/09/2020 16:40 Patient: [...] left the Emergency Department ambulatory. ( [employer]). --22:35 09/09/20 Bruna Farrar R.N. 21:35 [...] rce(s) Supporting Document(s) ID Date Data Source [id number] 09/09/2020 04:46:00 PM EDT [facility] 1 Clinical Report - Physicians/Mid Levels [facility] Emergency Department [address] [place] [address] Phone #: ext- [phone] 09/09/2020 16:40 Patient: BRUNA LEE Sex: F [...] Abdominal Pain. 2 Clinical Report - Physicians/Mid [facility] Emergency Department [address] [place] [address] Phone #: ext- [phone] 09/09/2020 16:40 Patient: BRUNA LEE Sex: F [...] (Reference) 3 Clinical Report - Physicians/Mid Levels [facility] Emergency Department [address] [place] [address] Phone #: ext- [phone] 09/09/2020 16:40 Patient: [...] Male GFR Interprentation 20-49 yrs >60 mL/min Llrevr50-32 yrs >56 mL/min Normal 60-69 yrs >49 mL/min Normal 70-79yrs>42 mL/min Normal 80 and above >35 mL/min Normal Female GFRInterpretation 20-39 yrs >60 mL/min Normal 40-49 yrs >58 mL/minNormal 50-59 yrs >51 mL/min Normal 60-69 yrs >45 mL/min Normal 4 Clinical Report - Physicians/Mid Levels [facility] Emergency Department [address] [place] [address] Phone #: ext- [phone] 09/09/2020 16:40 Patient: BRUNA LEE Sex: F : 1985 Age: 42p14-00 yrs >39 mL/min Normal 80 and above [...] PRESUMPTIVE POSITIVE CONFIRMATION WILL BE PERFORMED AT [facility].ETOH: (JENN: 09/09/2020 17:40) ( [facility] 09/09/[facility] 18:29) Final results Test Result Flag Units (Reference) ALCOHOL <10.0 MG/DL ALCOHOL % 0.01 % (0.00 - 0.01) *FOR MEDICAL PURPOSES ONLY*Magnesium: (JENN: 09/09/2020 17:40) ( [facility] 09/09/2020 18:54) Final results Test Result Flag Units (Reference) MAGNESIUM 2.2 MG/DL (1.7 - 2.2)Acetaminophen Level: (JENN: 09/09/2020 17:40) ( [facility] 09/09/2020 18:29) Final results Test Result Flag Units (Reference) 5 Clinical Report - Physicians/Mid Levels [facility] Emergency Department [address] [place] [address] Phone #: ext- [phone] 09/09/2020 16:40 Patient: [...] 09/11/2020 07:17) 6Clinical Report - Physicians/Mid Levels [facility] Emergency Department [address] [place] [address] Phone #: ext- [phone] 09/09/2020 16:40 Patient: BRUNA LEE Sex: F : 1985 Age: 35y Name Value Range Interpretation Code Description Data [place] rce(s) Supporting Document(s) ID Date Data Source [id number] 09/11/2020 01:50:00 AM EDT [facility] [address] [place] [address] RESPIRATORY CARE REPORT ==== ---------NAME------- NUMBER SEX AGE ADMIT DISC. XRAY# F/C TYPECOME BRUNA [id number] F 35 09/09/20 09/09/20 [id number] E/R DATE OF : 1985 M/R# [id number] PH#: [phone] VT-05 LOCATION: EMERGENCY DEPT EKG [id number] COMPLE TE:09/10/20 01:43 VMT [id number] PHYSICIAN: AUTUMN ZENG Name Value Range Interpretation Code Description Data [place] rce(s) Supporting Document(s) ID Date Data Source [id number] 09/10/2020 06:29:00 PM [facility]T [facility] Name Value Range Interpretation Code Description Data [place] rce(s) Supporting Document(s) SARS coronavirus 2 RNA [Presence] in Res piratory specimen by MARK with probe detection NEGATIVE [facility] This lab was ordered by [facility] a nd reported by [facility]. ID Date Data Source [id number] 09/09/2020 06:53:00 PM EDT [facility] Name Value Range Interpretation Code Description Data [place] rce(s) Supporting Document(s) Magnesium [Mass/volume] in Serum or Plasma 2.2 MG/DL 1.7 - 2.2 [facility] ID Date Data Source [id number] 09/09/2020 06:52:00 PM EDT [facility] Name Value Range Interpretation Code Description Data [place] rce(s) Supporting Document(s) COMPREHENSIVE METABOLIC PANEL [facility] COMPREHENSIVE METABOLIC PANEL Sodium [Moles/volume] in Serum or Plasma 137 mEq/L 134 - 153 [facility] Potassium [Moles/volume] in Serum or Plasma 4.0 mEq/L 3.6 - 5.0 [facility] Chloride [Moles/volume] in Serum or Plasma 99 mEq/L 98 - 107 [facility] Carbon dioxide, total [Moles/volume] in Serum or Plasma 27 MEQ/L 22 - 30 [facility] Glucose [Mass/volume] in Serum or Plasma 103 MG/DL 70 - 99 H [facility] BUN 11 MG/DL 7 - 21 [facility] al Creatinine [Mass/volume] in Serum or Plasma 0.7 MG/DL 0.7 - 1.5 [facility] BUN/CREAT 16 8 - 27 [facility] Protein [Mass/volume] in Serum or Plasma 7.1 G/DL 6.3 - 8.2 [facility] Albumin [Mass/volume] in Serum or Plasma 4.6 G/DL 3.9 - 5.0 [facility] Globulin [Mass/volume] in Serum by calculation 2.5 GM/DL 2.4 - 3.2 [facility] A/G RATIO 1.8 0.8 - 2.0 [facility] Calcium [Mass/volume] in Serum or Plasma 9.8 MG/DL 8.4 - 10.2 [facility] Bilirubin.total [Mass/volume] in Serum or Plasma <0.7 MG/DL 0.2 - 1.3 [facility] Alkaline phosphatase [Enzymatic activity/volume] in Serum or Plasma 68 U/L 38 - 126 [facility] Aspartate aminotransferase [Enzymatic activity/volume] in Serum or Plasma 22 U/L 5 - 40 [facility] Alanine aminotransferase [Enzymatic activity/volume] in Seru m or Plasma 16 U/L 7 - 56 [facility] Anion gap 3 in Serum or Plasma 11.0 mmol/L 8.0 - 16.0 [facility] AGE [address] [facility] NON-AA GFR >60 mL/min [facility] ital AFR AMER GFR >60 mL/min [facility] Male GFR In terprentation [...] >32 mL/min Normal ID Date Data Source [id number] 09/09/2020 06:36:00 PM EDT [facility] Name Value Range Interpretation Code Description Data [place] rce(s) Supporting Document(s) SALICYLATE <0.3 mg/dL 2.0 - 20.[address] [facility] ID Date Data Source [id number] 09/09/2020 06:29:00 PM EDT [facility] Value Range Interpretation Code Description Data [place] rce(s) Supporting Document(s) Acetaminophen [Presence] in Urine <5.0 UG/ML 0.0 - 30.0 [facility] ID Date Data Source [id number] 09/09/2020 06:29:00 PM EDT [facility] Name Value Range Interpretation Code Description Data [place] rce(s) Supporting Document(s) Ethanol [Moles/volume] in Blood <10.0 MG/DL [facility] ALCOHOL % 0.01 % 0.00 - 0.[address] [facility] ital *FOR MEDICAL PURPOSES ONLY * ID Date Data Source [id number] 09/09/2020 06:18:00 PM EDT [facility] Name Value Range Interpretation Code Description Data [place] rce(s) Supporting Document(s) DRUG SCREEN URINE [facility] URINE DRUG SCREEN Amphetamine [Presence] in Urine by Screen method NEGATIVE NORMAL: N EGATIVE [facility] BARBITURATES NEGATIVE NORMAL: NEGATIVE [facility] BENZO NEGATIVE NORMAL: NEGATIVE [facility] COCAINE NEGATIVE NORMAL: NEGATIVE [facility] Tetrahydrocannabinol [Presence] in Urine NEGATIVE NORMAL: NEGATIVE [facility] OPIATES NEGATIVE NORMAL: NEGATIVE [facility] Phencyclidine [Presence] in Urine by Screen method NEGATIVE NOR MAL: NEGATIVE [facility] \\BLDo\\URINE DRUG SCR EEN INTERPRETATION\\BLDx\\ THE CUTOFFF LEVELS FOR DETECTION ARE FOLLOWS: AMPHETAMINES 1000 ng/ml BARBITUARATES 200 ng/ml BENZODIAZEPINES 100 ng/ml THC 50 ng/ml PHENCYCLIDINE 25 ng/ml OPIATES 300 ng/ml COCAINE 300 ng/ml ALL POSITIVES ARE CONSIDERED PRESUMPTIVE POSITIVE CONFIRMATION WILL BE PERFORMED AT PHYSICIAN REQUEST. ID Date Data Source [id number] 09/09/2020 06:04:00 PM EDT [facility] Name Value Range Interpretation Code Description Data [place] rce(s) Supporting Document(s) CBC W/AUTOMATED DIFF [facility] COMPLETE BLOOD COUNT Leukocytes [#/volume] in Blood by Automated count 9.6 10^3/uL 4.2 - 1 1.0 [facility] Erythrocytes [#/volume] in Blood by Automated count 4.34 10^6/uL 4. 20 - 5.40 [facility] Hemoglobin [Mass/volume] in Blood 12.7 g/dL 12.0 - 16.0 [facility] Hematocrit [Volume Fraction] of Blood by Automated count 38.1 % 3 7.0 - 47.0 [facility] Erythrocyte mean corpuscular volume [Entitic volume] by Auto mated count 87.8 fL 81.0 - 101 [facility] Erythrocyte mean corpuscular hemoglobin [Entitic mass] by Automated count 29.3 pg 27.0 - 34.0 [facility] Erythrocyte mean corpuscular hemoglobin concentration [Mass/volume] by Automated count 33.3 g/dL 31.0 - 36.0 [facility] Erythrocyte distribution width [Ratio] by Automated count 13.5 % 11.5 - 14.5 [facility] Platelets [#/volume] in Blood by Automated count 357 10^3/uL 150 - 45 0 [facility] Platelet mean volume [Entitic volume] in Blood by Automated count 9.6 fL 7.4 - 10.4 [facility] Neutrophils/100 leukocytes in Blood by Automated count 50.9 % 37. 0 - 80.0 [facility] Lymphocytes/100 leukocytes in Blood by Manual count 39.4 % 25.0 - 40.0 [facility] Monocytes/100 leukocytes in Blood by Automated count 7.5 % 3.0 - 8.0 [facility] Eosinophils/100 leukocytes in Blood by Automated count 1.1 % 0.0 - 7.0 [facility] Basophils/100 leukocytes in Blood by Automated count 0.6 % 0.0 - 2.5 [facility] %IG 0.5 % 0.0 - 0.0 [facility] %NRBC 0.0 % 0.0 - 0.0 [facility] al Neutrophils [#/volume] in Blood by Automated count 4.86 10^3/uL 2.00 - 6.90 [facility] Lymphocytes [#/volume] in Blood by Automated count 3.77 10^3/uL 0.60 - 3.40 H [facility] Monocytes [#/volume] in Blood by Automated count 0.72 10^3/uL 0.00 - 0.90 [facility] Eosinophils [#/volume] in Blood by Automated count 0.11 10^3/uL 0.00 - 0.70 [facility] Basophils [#/volume] in Blood by Automated count 0.06 10^3/uL 0.00 - 0.20 [facility] #IG 0.05 10^3/uL 0.00 - 0.[address] [facility] #NRBC 0.00 10^3/uL 0.00 - 0.00 [facility] ospital MANUAL DIFF NOT INDICATED [facility] RBC MORPH NOT INDICATED [facility] ID Date Data Source [id number] 09/09/2020 06:04:00 PM EDT [facility] Name Value Range Interpretation Code Description Data [place] rce(s) Supporting Document(s) [facility] COL[facility] yellow NORMAL: Yellow [facility] CLARITY clear NORMAL: Clear [facility] Specific gravity of Urine by Test strip 1.010 1.001 - 1.030 [facility] pH 7 5 - 9 [facility] al Glucose [Mass/volume] in Urine by Test strip NORM NORMAL: Negat merari [facility] Bilirubin.total [Presence] in Urine by Test strip NEG NORMAL: Negative [facility] Ketones [Presence] in Urine by Test strip NEG NORMAL: Negative [facility] Protein [Mass/volume] in Urine by Test strip NEG [facility] Nitrite [Presence] in Urine by Test strip NEG NORMAL: Negative [facility] BLOOD NEG NORMAL: Negative [facility] LEUK EST NEG NORMAL: Negative [facility] Urobilinogen [Mass/volume] in Urine by Test strip NOR less kenna n 1.0 mg/dL [facility] MICROSCOPIC Not Indicate [facility] ID Date Data Source [id number] 08/27/2020 04:17:02 PM EDT [facility] Name Value Range Interpretation Code Description Data [place] rce(s) Supporting Document(s) Discharge Summary [facility] QKONXf3dEeOKEuAb54/WIVccKDKac9KzJMvuHBf9IDqgIZLoS4FzGSN3vT5bVGM9VHfCUkFcFlQnStNy lbm AdZugQSjKgCUCuSflUCxCwVGwrEefqlXMyPI9ZsMN6FIFhK69qOGCuYQTpO6VeCBW3UAZ+Lt0KPBXhpV TpXE5OOwxV0I4Mi1tAXq1yhn0RL9NLrlPEcnPVnCeVqlyFUjwS0oIN423CDGBUjuALIhrw/Hua5Up40W etQxG8KtruLnzbo89adLXivc1+VzknCqzQeX38V84A itlG/R7and9Qmr5b3Cj8CDoPFCqRW3+gPlrmp1/2azfA5siJYYLVzbgvHw+7mLvtlEX6//I4phD7ReFD j9WFmSSgmzv6zoFXstL0lWcp5Csi+e8eZVPg20QnTslUOq5Cq5feBr8BbtOpIBdVecwoDiKbygEh96Mk Q0p6OoN3VdotnRLeUf7xiAMq2SCNCtEkc0ajjPcg4c TkCJ3sFY2PvhyjGjtOZziG+iMy0pgTZhTYV8uhMvJLoawK89ztDVKloGe6h+KR8GNS7XGE+sCU22TEeG tPO0NV7IwtHWddNtJE9cupjoaeLU+c1Dm3PvLZ0jSfp+SMxTsBcqtfGoNwyhoGl1NOxFyk4UJW9D8nz+ r4yRq7krYS4mcN2pm4s7sGcAqjO63y9h3Q0+2NodF8 fazZRffhlIs01b8R/UporvhXLypRZPE1WpJNtphCv82y+zK0eqByua3y8DOhtR7U0pevlkbrM99xu17s NhGjG/lzawOQp3IFfmRa+GyZiVUSLZsWbLqwacAmUxZ/IJBUiXw9YFu5EQaisoNlbWlrRne3vvwlRDqz jgtN1YsggPeplkS+XVjyB+eyPSbijMuNgENtc17Yp9 4CN3CmfUOq6LGUWbH2/QF6WMtjRkapxKPR0SWEiGX/2/ae/Y6S/i5PTlWIL5hF+EJMY/54j3g9tuN5x6 wzaUhT/q5i3kdqg5NAuDRUZlsNSeyD9Z9TiH4AVIVBxheiLHmXDFdNpYrdBmDpordleQAxnZdUOQ+Anc SrsNW1MXII2oh/aOZfHRAJUVFYSEXYTJP3nyESwRB5 [file] [facility]+fyZIDQgEvUCK6kBbJAgI6JV8EHSP+LsQ5eO91 [file] AgICAgICAgICAgICAgICAgICAgICAgICAgICAgICAg ICAgICAgICAgICAgICAgICAgICAgICAgICANCiAgICAgICAgICAgICAgICAgICAgICAgICAgICAgICAg ICAgICAgICAgICAgICAgICAgICAgICAgICAgICAgICAgICAgICAgICAgICAgICAgICAgICAgICAgICAg ICAgICAgICANCiAgICAgICAgICAgICAgICAgICAgIC AgICAgICAgICAgICAgICAgICAgICAgICAgICAgICAgICAgICAgICAgICAgICAgICAgICAgICAgICAgIC AgICAgICAgICAgICAgICAgICANCiAgICAgICAgICAgICAgICAgICAgICAgICAgICAgICAgICAgICAgIC AgICAgICAgICAgICAgICAgICAgICAgICAgICAgICAg ICAgICAgICAgICAgICAgICAgICAgICAgICAgICANCiAgICAgICAgICAgICAgICAgICAgICAgICAgICAg ICAgICAgICAgICAgICAgICAgICAgICAgICAgICAgICAgICAgICAgICAgICAgICAgICAgICAgICAgICAg ICAgICAgICAgICANCiAgICAgICAgICAgICAgICAgIC AgICAgICAgICAgICAgICAgICAgICAgICAgICAgICAgICAgICAgICAgICAgICAgICAgICAgICAgICAgIC AgICAgICAgICAgICAgICAgICAgICANCiAgICAgICAgICAgICAgICAgICAgICAgICAgICAgICAgICAgIC AgICAgICAgICAgICAgICAgICAgICAgICAgICAgICAg ICAgICAgICAgICAgICAgICAgICAgICAgICAgICAgICANCiAgICAgICAgICAgICAgICAgICAgICAgICAg ICAgICAgICAgICAgICAgICAgICAgICAgICAgICAgICAgICAgICAgICAgICAgICAgICAgICAgICAgICAg ICAgICAgICAgICAgICANCiAgICAgICAgICAgICAgIC AgICAgICAgICAgICAgICAgICAgICAgICAgICAgICAgICAgICAgICAgICAgICAgICAgICAgICAgICAgIC AgICAgICAgICAgICAgICAgICAgICAgICANCiAgICAgICAgICAgICAgICAgICAgICAgICAgICAgICAgIC AgICAgICAgICAgICAgICAgICAgICAgICAgICAgICAg ICAgICAgICAgICAgICAgICAgICAgICAgICAgICAgICAgICANCjw/xUJdA4lcyXIuvgV3U8jcDq4PSw5B OM2mo1KyLUWjGKklpeNfDraHTmBlRCTqWqpYBlc6BYbjDE6UpLBlH7AjX1WeXLfvUI1GLOStIUImaZJj GIHjQFSvJuY7AUVvXGmjMP1GeFIjCRprTRCaNSQcCp ThFGMuYISsFWZiMGJaPRLFXJSaUJFxJcQlKYVdNICnJNyyPCITXOF0NVYdPoJmUAWpWMFtRtCnNPIHAQ 2JWeQkK1JnwS27ITZcUCq+Ja0DVB3hw3DqBWx3DfVqQM2kfm5UPOhMKbUsW2CdzxP1FRIsEVCkZr8LFQ HiNEYwhYV0VkVgVHBPVyIwB5JegZ06VMMNTk4+DQpl jhLePjgZDvBmFOBcg8NqNQp2HB0WZRIjVSi1wDLtKRjgD4pxofigEII8zZ1avhosXpenWDSwlEmiPLwy VU1xSM9WQQE9GLeeRb5sQKEcZSLeBvD1EPQMPR9CVTBpNRLftGZwTFBlWYFHCL6ONOajLDL5OHUfpnIk qIDjQYwqKC6WSVEwpqQzZsNhGWBWVNs+Du6UUZ7sx1 NwXBo5PGZgNK0vbe6SSEiDVwWbO1D4gKYqA7Y0MEveOv8BWFMmJSAaTjYcXSKNQHapKG8XHX5hcyG5TJ 1ZqRQqAHBsGJZuxSZcQBn4A07boXWkKFnoZH0OBGN+Luz+Zw8FBJMmOTNqCAQnInDuJPGCDjXyU4XpC1 DKt2OmO9NcJP70cYxxbzQfKAmwMM5PZP0sEOUcKPVM AZ2HkFKcfU8neiS1AbCyCPMSCkUxD14fnHPwSWWoJTUqMGEiUi4QLJWpA4FtuhCvaVvvtzKeKWWrIKMZ AB9XFUwwqaUcuFToqXwfWI46dIzjNR7GKu8QMhRkOZ5ppx6BgAAyGw2BWON2ZK3MZSCvXMVvFZNqUYR3 GLMcQnJfJJboXGZfDAHeINZ8LMAzPDKgYD2YBjWdPD LyUBR0CPszBQSzOUKdpe0OWPLfLYU5RAprKUUjRXAlCXIgGNaeXOUjTBZlKRM6JUOoTASvPG7CIfBgHX LeEXZzCjpeXBDsDAQana3ASHEoNUKfCVQ8QdDxVTGyTGUzCPoqTTJcEEK8SVG0SMYcLOTuIY5RYuGeZW YgFIflHtdkMIBoDTSprz3RMQGqZFMwHDPtHaHjLGOi ZNGqSZmmDGCcFSDzDiU7BAXiRLXfVT5MDxGrZJMeLGO8NuzdGLLbAXIwjr0YMYJfBKZsWSN0RKXkITUs OQLnACakTVMoOOL2FvX4MCNkNJMrZA8VGhKyEHRzWGh9TDJeCEJlKCTxgj4SQGCpVFAjBtc9CoLrBOPv ZRKtUZxxORFiADCwQHlqSBHaFPIiUH7UUiVlYRGfAy Z5VyUsJFPfYFMata4ATANvZGBjBdX3BKHbJSEaEABnIXgyVIHhCJPgSRx3CWSdJBDmKW1XSaJlCIEzXq SpGNBzMCPaQZLmle3QYMDoOMAxCnOnDANvZOJcPDItLRalPCAfCCTwCfM0HSTjXMKaTB8LOgKuIBZqLa F5ASBfDHVwGIAjbj0IJNMcTKKcKqy1ZaYnVDTjGTXn JKvnPEEzWUY0AWC0LSCiQKBzMG2HWqDiBEKcKaruIKZyONUlSVZjof7SVUHsWSMdWGKhZiLeAXRdSOTi MLqsHJVsWYL2Aem9OYHzXMKqQY5NMcGfHQOjQrq4AFkwUPOsVEJbmi8RORRhZYXqLDV3VvKvXERgZYJf JCznPKIoYHSdTlJ1YBWpIIAzAT9JWnAnMDCxFUA0Nd ldKPMbGQSnca6BKPAlSGC4BAIyTWXhLTVoQRUsNJqmISTgCMMoJCf7PNBvTZZpMI4FIhAxUUOdVIMnUC ZyMEGyPWHzua8CGNAeZYJ6WnD2YMKbJALpAPMqCVnsYMSrTBOpViQ3IQQnRBOoZZ5DZlZfAVIbPOA6Td vtRAZoAPYels3YYEZoCNQ1HcjfVXOiMEKjUIIfFRjd XLFvQJP0XIW6DWSzCJJlXE0LQdUhTSTpCGC9QuIyXBYyORIcfc0ZFNJoDXY9ZADqUUFuVRZvNEKbUAmn ZQLqXNH9CLfcSIQgZTSeNG4ZJmWmSNBgILJrSEXqQQDrWDFotv6MCQHbYHU2Iam9PYOuSECpOICfTXwi ZUNnLBB3RGBiKLJzXHOwHD4YFlLmNMVbLPcdDuAnOA CnBGOzjg9TVURsFTH1DJC3TOLxQAImFVCiCUtaYUFmTHV2BHi6YZRyKRZaRX9TJqZrGRLgGpWdKFveNX SaSALrpe8KZWBmJPB9OBFtXmVzEAQvMILgIMjxVDKvCUxaGNf8ZLKzAKSdBY6GGmCmLQRgVUB0PkcvYA LtKQOqhs1TIOQzJKA2McS5NiPdKYAfHIUdNHtnQNPy IGbuUmlyPQCdRSXcLY8EHnJiOKBfOJI1BtAxHIHbVWGuxy1SFGOuTTV6NwQ9DdMvNZLtMJBnPOckVLJo EHjjWtV9GLYhXVFhQL1WBrMlZZAvOHP3HBYdNXKqCBSbkk0WRUQwRGT7Nqg1FGNeHRStHVMzJUieSTZl YPc8DIg1VTWaMKJeHP7DIkBmKQAjBSO4BGsvTOEzVD Sjis2AHYOvXOM6TeP5LKZgARSaCAVxOWloZGFaLQa2TqG7SPPvFNSoOA9AZdEdAZauUZNVGhm5COhwI0 r2JRB4FS5JU3Kjd2NfIqFmCNUGCVloMH0kjqSbFOWvBk5BO3hMNruaLRF3MrZgEHlxQeO7OtkjRqIjC2 HwBtNaFTSdAtG8It3nIKDzOpV7UWX9McMqJVMuZRWv PXY1PFCzNFJyMXWmHtmmXhHsOP3KQn6FYxW5TQC2jRVaHg1FDSO5ICGAHhJtZR0QMIg= ID Date Data Source [id number] 08/26/2020 04:11:50 PM EDT [facility] Name Value Range Interpretation Code Description Data Elmira rce(s) Supporting Document(s) [facility] ZZZDYr3uSyLMVqFc69/UBGhhUZAoz5YqHUsnVWj1CQvrTVJvB5SwUJT3vK7cCIB2ZWsZAaCvAvQhKsBy lbm [file] AgICAgICAgICAgICAgICAgICAgICAgICAgICAgICAg ICAgICAgICAgICAgICAgICAgICAgICANCiAgICAgICAgICAgICAgICAgICAgICAgICAgICAgICAgICAg ICAgICAgICAgICAgICAgICAgICAgICAgICAgICAgICAgICAgICAgICAgICAgICAgICAgICAgICAgICAg ICAgICANCiAgICAgICAgICAgICAgICAgICAgICAgIC AgICAgICAgICAgICAgICAgICAgICAgICAgICAgICAgICAgICAgICAgICAgICAgICAgICAgICAgICAgIC AgICAgICAgICAgICAgICANCiAgICAgICAgICAgICAgICAgICAgICAgICAgICAgICAgICAgICAgICAgIC AgICAgICAgICAgICAgICAgICAgICAgICAgICAgICAg ICAgICAgICAgICAgICAgICAgICAgICAgICANCiAgICAgICAgICAgICAgICAgICAgICAgICAgICAgICAg ICAgICAgICAgICAgICAgICAgICAgICAgICAgICAgICAgICAgICAgICAgICAgICAgICAgICAgICAgICAg ICAgICAgICANCiAgICAgICAgICAgICAgICAgICAgIC AgICAgICAgICAgICAgICAgICAgICAgICAgICAgICAgICAgICAgICAgICAgICAgICAgICAgICAgICAgIC AgICAgICAgICAgICAgICAgICANCiAgICAgICAgICAgICAgICAgICAgICAgICAgICAgICAgICAgICAgIC AgICAgICAgICAgICAgICAgICAgICAgICAgICAgICAg ICAgICAgICAgICAgICAgICAgICAgICAgICAgICANCiAgICAgICAgICAgICAgICAgICAgICAgICAgICAg ICAgICAgICAgICAgICAgICAgICAgICAgICAgICAgICAgICAgICAgICAgICAgICAgICAgICAgICAgICAg ICAgICAgICAgICANCiAgICAgICAgICAgICAgICAgIC AgICAgICAgICAgICAgICAgICAgICAgICAgICAgICAgICAgICAgICAgICAgICAgICAgICAgICAgICAgIC AgICAgICAgICAgICAgICAgICAgICANCiAgICAgICAgICAgICAgICAgICAgICAgICAgICAgICAgICAgIC AgICAgICAgICAgICAgICAgICAgICAgICAgICAgICAg ICAgICAgICAgICAgICAgICAgICAgICAgICAgICAgICANCjw/nQFcA4wkxODaziS9Z2ldRf6PJk4PEY3c u8HvMLDuLNndhqYcIaiFSnDgFWMoZfdUQqb1JTspPK2KjEDnH5TfW8LwLLowAD4LPVLvSSJteHVsUNXg DUVlAdL7DXAzNGbuTV7YrTXsWGynXWZzJUEsOuYqNZ DgLTJiJAOfLNZqRJNBTWEkDDEcLfKxRELyDQYnBKdoDNDZAP6VVcLlY5BbzH78EKmWEf3+DQplbmRvYm gOGmJfVMKvu2DiEWm9VB2DWOIsIvwly7ThTGMhGLDGKHhfTJ4EWJA6URIwGHWtRo7OIKZqH400ceEiCF 3WYl9RYaBfWJ7fvz7IJYDyGHHxSloURmz3FSbiNN6Z fEZgLTzXYdDhYghcFYMdlRyoIDkvLT4iDK7BCJU5ZQmtNL5tZGKaDSLdOzV9STORGF4EDZTwCBFpaTHv POYqRYWACK2GNJraVDF6EQXeenJggGKnHTlpPQ2APRIknmFmRZVoBBTSUKj+Dj5SPN0eq6EnKNn6MiLi JI2mkg3YLPcQUbDoB7P6aGDoI3X5STkjGp9UIVGoAW DeSGxkOOMOSQimIT9WSA1coyD6GG1HuPUlFAVkGUOhtGOrAWd0Z14rvUYnRQnwVI1CYNX+Luz+Pg0KIC MoEIZrIVQdQmYfLELHQrFzJ2MlI9IOd3BvL7DuCH69iLkcotYsOIydPH9NPH0nGDInCYLSZI0QpCKlpH 1fieZ3LEWmQWPIVqNxJ88xxXBsJGFyJNSkZUJfTq6A UXTaP3EbdlGohDjwlgOuPLYdDFIWYJ3KBSyykvZerPRgvKvcTS30mLbeXC1OPr3ONyPeEW0rlf3RvPWj Hf6OFUJ9QT5UJDMmWGWiIYSdFTO8CBRiGsVrZJqqSVWoQQJyXOE8PHQgWOSfNE1XYfLzTKTzDJJ0OEhz LICuODLibl7ZIQWaETX2TwViBLXuOKEhGHXgBUwfSG PtGPPpIGU8DDFvZEGyUR8PUpGdCSZvAET2CPQtKIPjCGFxwo0WWNOqYMKwNTY4XXOnEFJcGNMrYQjpXC SdDAD7DRw4RQGeSYNxVK7YOlWuGJFyMKl9GDJaJJBhSYIzml7AMTYyGXIsQHcyAUEtXWNmRCGqAIolLD TiNPNnNVM6GBIaPIUqOX6WNhKeIALlQYRkSHkiVGRw QZZsci8UMMJfNOJcIVP3LKAaUXNwTZMsGUijDZZnAUI4EZZ6NJCgOENeJS0BEjDyKRLrCAcaHPBwEQEn CAPnih7APXLaPUUjXzZjXwWzUOGmJGMdOFzgDODbYGInEsRmQMOuLXCtCC7XXxFaJKPzLnW3JsGpOAJz PXOtct9JXGSsHFHoMcA1GuLdCWUcWRRiOQcaFJOwFT L1CRE8EQZkGUSxPJ9GFfQgTDRfMvxxNhTuELJaBSKley6MCJDvUCTbNKDbTkQcHTJmTTYnVScjQIAcJP H8SOH2LJOsCBLzAM2CRdRbMLYtVju2AdukBBKsQHLxbn1IBWZiZQQzJMz6IPBdCXFySNFqKPilDKOvKC DiQIP9BNWjUDErBM8KMnZxVJJkSfFtPCYbCTVbITEo oa2LQTEjTJMjTRKyXWLiTXIkDPNgBBbiTTIvGMCrESF7YKJtDGOcYC6SXhVyCUOcLiCnSmGpIXGtZWIz td3ZYHJiOVNaDhS0MUAeKXZmWBQwRKifGMOdXDUuBAZ1EUOrVEXdJN6MCzHdTRQbRbN0JTiuOBIhUBBk ag7RPZYcEIKdCmf9PDZkANVkAXSzVKauCNDoSCT4Qv wzPOCrKACaNO7TJsQiDRHzDJG4OOAdPNTdBKNstv9DZSBaBNU5JKeyKDMvSGZkDBDjLTaiXGKtKEM4VI Y3QZJsIZHdBZ4ZYrTyDINbWIYvTKFfFGRvKKWknh9VXRNlWRU4VmJgQXVsAIWeYFGtWGzdGDRsDFE6Er SkGOMgAYNpOH1LZjHxHCIoSRu0UBSqDTHmTZCnma2C WWOyBFM9XyN4JFTmIDCbQFYnGPlhJQDaARJhBdc8TSLlXFAcKM8FFiVqATHeVYN5NEVlMEElPKMjqh5X CKNwYQP4MtX5PWNiXLPdCZMmGQidEXDfPCPaWyh0EPEySSSzBR9IRaSvUWRsFWLdPwLoZMXpTAZwrq1R LPSqTBQ2CMSwXRSjSHWpXYOmUUylHHQoJMN4ATv1OX WnTMRdDP6FEkUmWYKvBVImXSFpTBTmBXIsmm6ERIYgNAN0GlF2JtKeFNVaJVIqHRekIFItQGH0AmQqSL VxKJNzDN4QHoQfPODxYTC0YxnfYOBmBZWjak5OsVHafHyocp3CBCvCHn3KiQoqVSI2MEtcOa3umXQ8Io EjKOXFQs2RceScFYUoFDUMYAfvLSJqOBF4TKBfSpIu OUdtRiHzWaMfIHOhWIUsN2N7Ton5YBQoWfY0YoWaNVY6RFUqRcXqODNuWDS7MXA2SoX0AQvzLBUnEGK+ EJ9qQHh+Yn6Mz0BmgbP8ybMtLRu9WqGiVG6EUBCPC9BXEl== ID Date Data Source [id number] 08/26/2020 02:49:08 PM EDT [facility] Name Value Range Interpretation Code Description Data Elmira rce(s) Supporting Document(s) [facility] system IQBUPd9nEwGUUrJh81/HFClrLAErn4FwQKusRDn0GHmnYWZdJ3JzUWB2aZ5xVAB5JUsQMtRzVpEhFqUj lbm [file] DQogICAgICAgICAgICAgICAgICAgICAgICAgICAgIC AgICAgICAgICAgICAgICAgICAgICAgICAgICAgICAgICAgICAgICAgICAgICAgICAgICAgICAgICAgIC AgICAgICAgICAgDQogICAgICAgICAgICAgICAgICAgICAgICAgICAgICAgICAgICAgICAgICAgICAgIC AgICAgICAgICAgICAgICAgICAgICAgICAgICAgICAg ICAgICAgICAgICAgICAgICAgICAgDQogICAgICAgICAgICAgICAgICAgICAgICAgICAgICAgICAgICAg ICAgICAgICAgICAgICAgICAgICAgICAgICAgICAgICAgICAgICAgICAgICAgICAgICAgICAgICAgICAg ICAgDQogICAgICAgICAgICAgICAgICAgICAgICAgIC AgICAgICAgICAgICAgICAgICAgICAgICAgICAgICAgICAgICAgICAgICAgICAgICAgICAgICAgICAgIC AgICAgICAgICAgICAgDQogICAgICAgICAgICAgICAgICAgICAgICAgICAgICAgICAgICAgICAgICAgIC AgICAgICAgICAgICAgICAgICAgICAgICAgICAgICAg ICAgICAgICAgICAgICAgICAgICAgICAgDQogICAgICAgICAgICAgICAgICAgICAgICAgICAgICAgICAg ICAgICAgICAgICAgICAgICAgICAgICAgICAgICAgICAgICAgICAgICAgICAgICAgICAgICAgICAgICAg ICAgICAgDQogICAgICAgICAgICAgICAgICAgICAgIC AgICAgICAgICAgICAgICAgICAgICAgICAgICAgICAgICAgICAgICAgICAgICAgICAgICAgICAgICAgIC AgICAgICAgICAgICAgICAgDQogICAgICAgICAgICAgICAgICAgICAgICAgICAgICAgICAgICAgICAgIC AgICAgICAgICAgICAgICAgICAgICAgICAgICAgICAg ICAgICAgICAgICAgICAgICAgICAgICAgICAgDQogICAgICAgICAgICAgICAgICAgICAgICAgICAgICAg ICAgICAgICAgICAgICAgICAgICAgICAgICAgICAgICAgICAgICAgICAgICAgICAgICAgICAgICAgICAg ICAgICAgICAgDQogICAgICAgICAgICAgICAgICAgIC AgICAgICAgICAgICAgICAgICAgICAgICAgICAgICAgICAgICAgICAgICAgICAgICAgICAgICAgICAgIC UaMQSxFMQtHAYnDYJuCAHbENRiURm6R4ogAFRhCVJbFY3aQYn9Zb7+FQsNPbInXZY5mgVvkQ1OQF4gs3 HuJUcaNTQrf0LlZMp7FB5EVBAzACjgDU1VUDoxbn9T DTAwVZSdhATFp9ltTxOzUWE6FMWwFasqDI4KBTZsZ9ocjrXcHYCoQJMNJHblURDEEWpoIUVODZIqLSLt CdRaKGxpQP6Ux8JwfEZ5IPf+Wc5DMZ1yr0FgKLzwOMRhMN2udv8PNSkLSwOwU1QkagZ9YBU8UGGqIy7N UDLjEXCoyZOwIKGdZUOHRsXmK5AgzM36DPKRZi5+DQ nfqrTjCxfIPdF1YXMhg1OzDKt1YM9RPLVcVEd4lOPhDVOKJEC5DHFzHL8pOJCAzIArJFDlFOJNUJK6CJ gdXN4kTJTjRJEgYiI5YWQATO6HURNpJOKptYXtDJEaSIVMWE8YNJxbRZP0XRAftkUlmBEbBCnzDK9VIR JlbnQgMzQgMCBSDQo+Kr0RQJ0xo5AsYTgpOtAfOU8e vs6LOSyKPdOmD0O4aUVjV9S8INarCc3BVDCvBMJiDpFqHGCOUOqfYO9PLD2tjqJ1QX5CjBAoSXFeBCXc oCGnVIz2D67abAEcXMsbCB6SOKY+Luz+Im8FWHYbNOPpSDYnYmWnHESSLbSfQ4KsQ7RGw5DxQ7PpWA70 uMjlmxLoQPptHI0CCS5fURGsUUFOVR6XmBNxnE4wjt DzPZVmFJERKxVmP36poRQjKLVeSMToUMGcPi5MTWRjE3HzxgHhbRzqvtQyIDVrOAABOU7NRQctywQdlU LopNqdUI16jWdnVJ4JRy4CYkRxEX4vej4AkDLpSl9FKEOlPk0LSTLuHSFuPAOlVHG9CMLsTeAdSUujDM SiMISpZKB5URIcDGIoSZ3USdMkKVKoKmF6YbobFJAk AAZrgw6HDJAxDXLhWhT4MiYhVVCsGJFpWLbiOFSmDOWqEPL9GITiTNGdZQ8WStNpCJZzLOG0GblyYRBk CUPewa4GAQOoXOVuYmXeVhEyILGxNHZmKWcmGRTiEQI5NDS6KRXvOVQyAN0XKaBdEFRwTAL5KgKlBMCr OWCnlk0AEGFyBXYiPHB8IuEhDBKyBQQoQUuhAEEmQW Y1ZFSkBWFlHGNyAR3UDbOiLVHzRFM6ENJsJITrRKNczj1ZBRNoFUNoTRh5DcAxRSHoOWZwPChiSCLrCC GjGBIxSCHjLGCyFC4CEpJoVAYcYFRnCJytYEYmMQQeyq0XLDCvDTGnBbG1MxFvSOZkOAFuJQttWHSxCK O1CbVbLGUhBZNpDQ7OKcEoOFPoULL1DRBbKQYiCYTe na6BGIFmUDExXHR6DDVtTHIyPOYzENwuVBJeMOV2QgWnYSKdZMUpWZ4NEnTqBKSmSRV1GGgzMIHrWQTe jy6ZMJXoNYWqYCc6BSAcHPAiXIPnLPlcUBLpFDX8CuP8GLUnZQWjKG8GYoKcJPHsSxb9HBJxTAZvUAKc ib4KCBWyORRtQdr5LdQsXFNiVGIqLUkfFOMqKCZ4JI WqQTTzMPDcNZ3TVjHzYXGgLyaxKfwqFCBvMDXyei3OWRLoVHDmSNMqHnGrDDSnSZTmBMrqWWUrSUV5ZO PsVIRxZLTbSA5AHtTjMGTdWza9JBidICSaFDIhmy2JSONuLNElQYXiWFCcORFvMEMdNGqmQBKfPXKlSz H2FLQtAAHdBO6RCySzYZTbQjK5ELtpGPFzILKsul3C DQLkSPAeHHB6TvUzGACdWLAoDVqtIYFmUMCrIGBlNCKeALFdSB4DInCmAHWiJzI7RRCcZAOpUWHzer2U XDGaRUGmTlKnJQSoYXKlGQShMLm8fmShfBEfJTt9QY3DO5EskqNjFgmYZp8Qd509PTV3EHLdHp7VI5ng Jo7dVICmDNTHFe7DNIs6G0W6DMPxPSNoYcX5GbZxBL NpKGN2IvcxQgy1A6J8MGJ+YZg3TwhmF2AtHJA3Ael2GZHzYvT4LWymYJK5JKwuTaUdJb4dZBJEQj9+DQ cfoKWkvSdlQKDJYiWeGxJ7VPwyWSYGVv0Y ID Date Data Source [id number] 08/25/2020 03:29:00 PM EDT [facility] Name Value Range Interpretation Code Description Data Elmira rce(s) Supporting Document(s) SARS coronavirus 2 RNA [Presence] in Res piratory specimen by MARK with probe detection NEGATIVE [facility] This lab was ordered by [facility] a nd reported by [facility]. ID Date Data Source [id number] 08/17/2020 03:58:41 PM EDT [facility] Name Value Range Interpretation Code Description Data Elmira rce(s) Supporting Document(s) Discharge Summary [facility] ZWTCFf5hOnSOMtNq98/AUYpnAIRpk2XhYVecLMp9EIxcLEMhD9WqGWM8aX3mHTB0AIoXDnVzJnSbXsJp lbm [file] ICAgICAgICAgICAgICAgICAgICAgICAgICAgICAgIC UhKFGnBYHbAGEeVTSdMBEgOENeIQWhBEMeTBOnTXVuCRHhZCClYQ1UWVQfRRMwNFUwMYIcOVVvIIEmQT AgICAgICAgICAgICAgICAgICAgICAgICAgICAgICAgICAgICAgICAgICAgICAgICAgICAgICAgICAgIC SeHVGxVILmQNWcYIMeFTSdBZMlMT1LGQKzDQYoRRFl ICAgICAgICAgICAgICAgICAgICAgICAgICAgICAgICAgICAgICAgICAgICAgICAgICAgICAgICAgICAg OLRuBKNtUSGbRNLaPKQkWGOkIYFaGUOuUUZkACDxPB1UXUPmAHFlQOOgSBCiISDnDEVjKZFrUTRuFWUi ICAgICAgICAgICAgICAgICAgICAgICAgICAgICAgIC AoMNHfZWSoOTHiETGfLQByLQAcGCDoHJAcSMJzWWQdSTLyLRElPHZjOC2ZEIJuJFMoEKHbLTAdOQYfBU AgICAgICAgICAgICAgICAgICAgICAgICAgICAgICAgICAgICAgICAgICAgICAgICAgICAgICAgICAgIC XeEJFiVPLaUKPxECNdLDBkKYLrTMNcVU9GIPPnLNZk ICAgICAgICAgICAgICAgICAgICAgICAgICAgICAgICAgICAgICAgICAgICAgICAgICAgICAgICAgICAg AKWiUUFqSCUdDBItOKBbOTYpIEXjHKFqENApHRMvRPFeBP2WZCIxATAzOVQeVPUeVDVdELByHCOzNRLb ICAgICAgICAgICAgICAgICAgICAgICAgICAgICAgIC LqTGOvFNHiGHHgZTFhEGClRKCgCBSlGBCtGFRuJEDaVSKdPIJyVKWxHUPuGE9QEFJyYLJtJJJgZXVnUO AgICAgICAgICAgICAgICAgICAgICAgICAgICAgICAgICAgICAgICAgICAgICAgICAgICAgICAgICAgIC GfAQTiYEOoQNDiMFRvPOCyDWTiMISdCBHiKI1WIYHs ICAgICAgICAgICAgICAgICAgICAgICAgICAgICAgICAgICAgICAgICAgICAgICAgICAgICAgICAgICAg LJSgGOIkUXAbXDKkEGIbEXDpVUQoPPXeYESaZNLvRQOsMSEsVE7ZSGCwSVYtMIGmAHEbSEBkDBJwUKSw ICAgICAgICAgICAgICAgICAgICAgICAgICAgICAgIC UeZXSiICPcCHYuGOSwWLWwOBEiJBWsHHJmWMJvBQHwATIqNNClQCVxUBBqNLFkKJ1HJE60jAAgi7G1CQ TjZO5msnt/Jn4FPJprazOknAUsJU4WKfAxMN7zyq9CFlJrDX8hjq6QMIgFBsJdQ0C4wOXyRZOsDYDMFr XgB32bILghKe33UNjqASEoUgYbIRm4Lx4SHxYhH0qj NOPlSnT9LJOgQnL6TLTvIlB8HMDxKcMgBJYhKMZuLWVdDSXCLZW0CUPwDqTxNcOfFSTfVBeeFVRRYWSf HORyHoGgDeKzPOCpPI9KKFXeS714zqPhIFEDEf4+LTlsrxEuXefUYrK7QETry7TxIFr4UJ5ZVLAgZbrg d6BvQJioROQRTQuhUC4YEAB1SMP7FENrHr0PMSDhM6 53bqLcDH6OJs4MOyMgRW8ior3JOKrxKZSbGtzIKga4REdnJI0WlWKgONsRcVTrfWZpU3WoX8VnqIJwpC FukATOdOYtMBFlYTQgihPrTtMkkKeawIvkWUZxMUAtSq7xWp8fOHUwVMOkYjQuORAOUT7AOOReVSVzpF ZpYOOwXFWIXE8PYDczPXT7GYFsvoXvkJFqDKltFZ4K YXJlbnQgNTcgMCBSDQo+Fc6YBS7sf3HaSVd9FUYiMG2mab7VMUtYZkUsC5F8uEGeJ8A9UWlsQe9AQMBr RQSfDUDsHCTUFQzhWS5SMW3mvrO6UF9RySIhDINqVOTdoYUhFLe8O44swESoQPvfJJ2NSAO+Luz+Pg0K JGRkGRErKXLqSlSfYJQJGeMfV6WbX8REv3PqX0DxTT 73vPcfawJmJClwKO9CID8gHVJgVLGXIS3PuYAcaE5shoN6GwHuSGFDDqKiA38tlKAxIIXsSAO7QBNaYi 3KTCStO3NfcbZipMxirjOzNOKnUKETWP8AYSfkgmLgdFJioZauZU11jUtgJH4CNq2QLxVoIU6ywz0YwN LlHt7TGBS8MT6EYHYnEMIiHSWqQIB6TNJcGcAlNJvl AIDdOCMhYRE8GEMwWTSmGI3ZVzAdHNLbHhI6WlMuEOIwMQYmms3PBJXaJYX4MJZ9YBAaJOFwVTOdXZgc EOKjTIJdEDT4ECQvDAAiNO7WHmLrXJJkVCOzQBbaGXZfVOGsgu5NDSGfUWRpIST0FOYuFGZcPAVnVJxm HYQlMNX4ZcOeSYKeLAPdGM2IYnIbJTLrBMk7KPAjDK MrPGJuth5TTMUeYGTvPdZfQIMgPKKeQNStLLilITEcJOXtSyT4KPKyIUKrHY1JDiTeQWJjOLK5GZjtGK BxLFNsyg1OPVPlFWUnXkp0HTOfJISaIMAyVSmfWMZcFXCaNBEbBPAnUXYhWE9NTlShSRZpBqJlRMxpSU ExIHSsov0FPRWpPMRfDCQ4YDYtLCTjLIBeWBbgPLZu YQH6Nus7JIXrFCGrIJ1XCcHuCZEiBgq6AgWgSQGqSWYmfj0HQBVkVRDtCIEoKmYgVFDePLEnKTzkOJPk XQNaTFMhNWTmUILwIZ0SXrGcLKDqRgRdYevpYVHlPXBrya9GZFErKIKeDAX5WJWmGZUfUAYjZYsiWEZy VRV0GdDuSDAjYNHmKC9EVxEwNABuUcN7LMUkKKIvEG Nswy6LIOWwRDXoVxtgGdHzDFTkNMFrYHizSFKbDZQ6Oid9CZJtFGWiJU7LRwJsWZCnYyu5EqDoJQBiLS Edvc4CGJXzTLOvTCR0RbVrUNYsWCPoDSnvGHXuODU2NDE8AIUjVLMsAQ2KIcBsSWQkDfwuCNlkUDOtWU Vsey3IAYBwBGVrYUYiWQEiULBbLAFgDMjaGCTwWZTf BGG9NWPlJETtQJ4AOrCgEPRpSCK8SxMaULAzPMDtqg6BZWUeYOU9MEp6INXnASHeWBHjBDomBAYyIXOq ITE3HMQbGUHbSN6ENjBuWDWwWPXrFJMiLTIgZTYxtq1VDNKqEYI2GsU2MHRuWBTiVHRoPTkhGYQbTHUe MKM2JXGdTOWhYM4BGgZuFYCnUICbXQuaBDRpDVFsom 5CBZGiGMO5EeZ6MRUpPKBqLVMfYSecHHCpXHN2CRBtLGLkZBGsWA3SXgSpPMJgCCVpMGKpZONsJWGpva 4BWTVkBLT3PXD5OYTfKVEwFBHtMSscTHLpVZU6Mji7HLHdHCYgDL2WFhQmFLXuKAQ3QHTpODTaLORzrv 6YKTGgGLA5HSxvDRNeQKGxPRXfDSffGUAiTQAoKSA5 MBPuONEcTP9IWhHvKVCzNyJpPqXuFXTnRSWpym9HTVNnZIJ8ODP5DWWoNBIyFNNsAAgnWUYtJXIwDeH3 SJIpTWAuMF6UIsLzYKAfElY3QzSjWAWbJCTrfm1LDLZhHFH1Jkk3QZPeFJZmBGUrDJmlVIGwIZYpCVX7 OPGsHECaWO8APcUyGEJtSmNkAMWjGMOkGCPxvj5KTB CzFBZ1IuW7IPLdTXGnMQUqQQrdWGLyNNXlCOSwZSMuXIAnVS1RFhNwOJYyNjMtXCsjRPAiSQRrkr4KGP BoGRQ0VSU7UBKtRABxRVJeJDtmNLMeXSW6DsT8DCYiLVLuWC5AKkAsUHKgRwG0QcdyBPVdBILqgs9IcW MbsZnpeb0XXTsFAv0BmHvnCMGtWEuuZw8nrHW4SXJx APDLRd4EygRdHWYhLQLXRQqhEFGtGVHeAEZbDKy8TMInU6CpC0G0PyIqOOCwLHS5ZTyyYRkvQvX3O6Le GSAgSuL5YgW8ERZ3JlQzAGMxRQS9CAy7VQZ8G1P+OQ1tJQh+Tb6Hn1GnblC0reUkRVt0RcWzHS3MRSFR T0YNCg== ID Date Data Source [id number] [facility] Interpretation Code Description Data [place] rce(s) Supporting Document(s) Color of Urine [facility] Clarity of Urine [facility] Specific gravity of Urine by Refractometry automated 1.010 1.003 -1.030 [facility] pH of Urine by Automated test strip 7.0 5.0-8.0 [facility] Protein [Mass/volume] in Urine by Automated test strip Neg [facility] Glucose [Mass/volume] in Urine by Automated test strip Neg [facility] Ketones [Mass/volume] in Urine by Automated test strip Neg [facility] Bilirubin.total [Presence] in Urine by Automated test strip Negative [facility] Hemoglobin [Presence] in Urine by Automated test strip Neg [facility] Leukocyte esterase [Presence] in Urine by Automated test strip Negative A [facility] Nitrite [Presence] in Urine by Automated test strip Negati [facility] Leukocytes [#/area] in Urine sediment by Automated count 0 -5 [facility] Erythrocytes [#/area] in Urine sediment by Automated count 0-3 [facility] ID Date Data Source [id number] 08/08/2020 03:50:12 PM [facility] Name Value Range Interpretation Code Description Data [place] rce(s) Supporting Document(s) [facility] BTKJIi3nGvVCHxEo16/FTOpwMERec6VgSIkzPEf1ZHdwXVOgW2AoRXK1nW7eIZZ1EDiNErTvEtXpDbFm lbm [file] AjcEzfTPCBPiAtYEU2YTwnQWYPQr2L ID Date Data Source [id number] 08/07/2020 04:12:43 PM EDT [facility] Name Value Range Interpretation Code Description Data [place] rce(s) Supporting Document(s) [facility] YMIPLo8eRnNGYbRo61/BWTtoBETux9UnWDnoPIi0EEluZHDvG8QfXFN0pA2gEMM2NJjZWgRhQjKpBeJg m [file] ICAgICAgICAgICAgICAgICAgICAgICAgICAgICAgICAgICAgICAgICAgICAgICAgICAgICAgICAgICAg KNArJLNtCMJsULBdTMBlZX7GPLRxJBBwFWZoWQUaVSQiHORrFIZyOOIdMOUoKTQfJPNqGTOyYYNpYWCl ICAgICAgICAgICAgICAgICAgICAgICAgICAgICAgIC KpUPCiRHDwOQLqISGiIYRaDNTiBZZnPAYaDH4NYNPvTEHnMMNcRTJbWQVfMHRzPPWxUIUpMOZyVVGnCA AgICAgICAgICAgICAgICAgICAgICAgICAgICAgICAgICAgICAgICAgICAgICAgICAgICAgICAgICAgIC KqRMZiCYJzUR7HAWOeHOVqQUBgJGMbGIDkIGGxAHWe ICAgICAgICAgICAgICAgICAgICAgICAgICAgICAgICAgICAgICAgICAgICAgICAgICAgICAgICAgICAg KBMoFDUvNFTzYHIwNBYkGKLbKZ5PBDKlELZqGHJePXYkMKDlXPVpDZSrQMHcUZQaJNFaTUKxOAAzULZf ICAgICAgICAgICAgICAgICAgICAgICAgICAgICAgIC ObCMIrVSTyNVIyPERbFYGrUEKiMXSpCLHkCNYhWZ5YMIXxTQAmJSBlEYBvDZWcPFJiZFFiBEIeWTOqWL AgICAgICAgICAgICAgICAgICAgICAgICAgICAgICAgICAgICAgICAgICAgICAgICAgICAgICAgICAgIC DvWLQnVJMtZGIkVN7MTAOgWSOzQHJfZHXvELNyJIIp ICAgICAgICAgICAgICAgICAgICAgICAgICAgICAgICAgICAgICAgICAgICAgICAgICAgICAgICAgICAg GMBnQXUjAHVvSLCyCPPsSBHgYWBeEX9TKGRiEVYkFCNgKQYbRVPcQJOpUWOgCOTzYNAlIHWyHTKiCXZa ICAgICAgICAgICAgICAgICAgICAgICAgICAgICAgIC EtJSEcVZDyRQZcJJUhGGOfXSKfXOVcPNCcEQFpJVRyTM6AFCXtAMMlTHFlLQLwVZXiIGBwHTGaZCAkOU AgICAgICAgICAgICAgICAgICAgICAgICAgICAgICAgICAgICAgICAgICAgICAgICAgICAgICAgICAgIC XpQBDqKFNgIVVgFVMiWJ3UPVJvXLKpUKDmVOFcYNSl ICAgICAgICAgICAgICAgICAgICAgICAgICAgICAgICAgICAgICAgICAgICAgICAgICAgICAgICAgICAg FEFbSHPoZCWsJYJiXRPtSPBlYPYzQEAfXJ7WPY03jNVyb5A2DGXmMU3zmsn/Lx7SXRkuxqPxvCOnTJ7X AhSsGQ8bop3PXnAhUH1nxf2PKDiLYgLhX7D7rPRuCY CdJOWPSmXzQ88hRDqgMo72NJzvHTLpPlPpNTg2Vh5LCoFsW3amXKHsSjK9KFFfHjM3BCVdAtA7MNEjDx UaSRJtHBQxRHJjUMJBHJT2OHSwGrFkNnBlFPDvTF2FTQPlG755igLjEc7AXt3NYtFvUJ8uje9UBFIeTK TyYadYGxf4MFehRC1WoEMkrPM3PORiJMKHZpYsP8ur q4PmUAWiKHIEYGxfRT1Kd5LhyVMpVKw+Pa2RCD3pz7VbYVb4ODGoUQ6kzx5NTWpBAdScN3MqgPrcCJjv QHLwmQXHrHSerVXxcIVfFYKHlZshPAQkMS8XNWV7RPJiMDKzMvGzWUSrCAn9YtEJINeGYnUiW7Gel3Bp ZkX3DJRoPiYoELtaOUYuZqD1DB78aHwfOI6LQEElBK SmAV20OUEpEYLqEs3RCh6ZArQoMZ0tyo6ZOGKuLRDpQnlJEwv6LCrxVS3KvXEwV3UziWGyb0cRTmGzP4 KBSJUiRYEuGj2JCFTcKtCoEDNxZNxyOY9pHKRbDELEiWpsciM2QS3KUU6xlcKhXW1PAwYgLj2fPq1DIf EvS0LvM3AbASQvMHDDNEqqDE1GEMjhNP5qKJ2Ls8QJ rULxxX7csn2HKOZqAYAqUfbpkb2YMgujG1P5jWmqTTFjCLFuJLUUHUkhOU5LZPSdYWL4BIT2YwHaLGTB GkJkP13sVQ6BK4Udz78dWnF8DVIzCyUoADedFE20rGoithUnbSSbpMbnXS3SRd7+DQplbmRvYmoNCnhy ERZLLqSfNPOPXyGyFOIwBXQyURVrBzR4DmTcBm3IUW OnUKIaUNAbWfAnYWBaRKAwOLfeJJMpQMN9CPY3VWPgKDDxHZ6EJcJtKNNoUtd9SCVcPDTcWGIlom4DWQ LzWIZgREO7WlPvNLCnDXSbRFoaYPImGLQhJEZ9KELgXEQyGQ3VKnJaVIUlEQXiVLOpGUMkNYAbnz6GIM GtHKGsJcRsPmItMJUwRIAcHCzyBPZxQHW1ERE9UNRi QNCaLT4WZaUpAPNfHFF5QpKxARTxWTRqew5RJTIbJBOiZAJjUoOyGXSoHCWlXMbeARIrZPL3AKo6TGQl DXPdWV3CDzIsBXImOGQoXTQsHNUiHTZayd5UMLMoMBLoNTx9HRYlQPYxLOLaDVsoZXNkXEX1CMT5HXLg NGPaZV3KEmJuIHVgRdD8OvUoYXArKJLvur7FCBJeTK TlFhUuDbPvWQNqNRVaSAjiFFDqNWAmXEVdYUSzUYXlXJ6RRbTzXTPvBfR4LiuvIMJpAXMazb0LUTEyVS QqELMpCICaTAOkIDKgKLdkGOWiROO5BDL7VOFlGJWnGV0AElLhGZUlSdXzAMakMPQaWRDxja1HRHJeGU PoPQo7OfVfNNAgEAJxKGdxSOLsZBM0TWJ5DNRwLAMp KC4SMfXjNZMrFvExTQqbDFPbIJWjgl1YFXDoTKAqGvXhFsKpTHQwKVBnDCckGWHlWWJ4WXU5WKJdSRTu WS8CLgHvUQSyOvl4JPzsFADsMTXupo1PZJDtDLTzIRY6EsDdBKGuZDGwDXjoNEEqFJK8XGAjMWRjXAOt VY9LMfZkBUAsChddIEOsTSRhPLZiza2AUGGkDVXmLL OfCEWgUWNpPEToXBwfJIObVECzUsS6MXRhTRGkOG6RNzMqDEUaFcA2IYAdSDLsBNZxes1CRGCfEWWrSM E3UJAfUDCeMDOlEBfzFWUyQXZ1HRdhUZDlUAKaAH0FVbXmHBAcWxI5LUemYYNrLHYcbv9XJXZaBNTmBh E2BBLbGKZtDTNyDObiXSObILU1UtX3ATLpCEXyYQ0Q VyYlAROuQrS2HIfwPXRnFWPdzh7YLOYeKKQpUwH7IDUnDYAiDVPxKNyrAHBtJXR3SPU2AJXnIHAuOV8C QaWnLHSsHscaCaRlSBLfYJQvpw7AZWIcUHAgPUb0TGItRBRlHRHrXPgnMMIpZON7DIX1HGKdDSQvWD4C OhAyFSMeTsk5GzNxZBSxQJHcad2GwABrkEvdmg9CIS rQWo5ChSpqJWF4GNbyPz1ypYW7ZAIyCOSCZx0TtrWjAQCsUZJACCxdROZeIYW2UBy5EsDfUIU3SAeaJM CzKuW3YaSkIrQgYUV3SGnpHxX1AatgAiUxRSRpZFA0BNWcNPEvHtEfCxUbOBHcRDlePRM+AC0oJJf+Pg 8Kr5QphfD8hkAnQKqsXHUeTX1EZSEPM8FMVq== ID Date Data Source [id number] 08/06/2020 12:10:00 PM EDT [facility] Name Value Range Interpretation Code Description Data [place] rce(s) Supporting Document(s) SARS coronavirus 2 RNA [Presence] in Res piratory specimen by MARK with probe detection NEGATIVE [facility] This lab was ordered by [facility] a nd reported by [facility]. ID Date Data Source [id number] 07/28/2020 01:05:00 PM EDT [facility] Name Value Range Interpretation Code Description Data [place] rce(s) Supporting Document(s) SARS coronavirus 2 RNA [Presence] in Res piratory specimen by MARK with probe detection NEGATIVE [facility] This lab was ordered by [facility] a nd reported by [facility]. ID Date Data Source [id number] 06/28/2020 07:41:00 PM EDT [facility] 1 OrderSheet [facility] Emergency Department [address] [place] [address] Phone #: [phone] 06/28/2020 19:40 Patient: BRUNA LEE Sex: F [...] rce(s) Supporting Document(s) ID Date Data Source [id number] 06/28/2020 07:41:00 PM EDT [facility] 1 Medication Reconciliation Report [facility] Emergency Department [address] [place] [address] Phone #: [phone]- [phone] 06/28/2020 19:40 Patient: [...] Medication information:Not obtained. 2 Medication Reconciliation Report [facility] Emergency Department [address] [place] [address] Phone #: [phone]- [phone] 06/28/2020 19:40 Patient: [...] rce(s) Supporting Document(s) ID Date Data Source [id number] 06/28/2020 07:41:00 PM EDT [facility] 1 Medication Administration Record [facility] Emergency Department [address] [place] [address] Phone #: ext- [phone] 06/28/2020 19:40 Patient: [...] rce(s) Supporting Document(s) ID Date Data Source [id number] 06/28/2020 07:41:00 PM EDT [facility] 1 General Instructions [facility] Emergency Department [address] [place] [address] Phone #: ext- [phone] 06/28/2020 19:40 Patient: [...] patient. ADDITIONAL INFORMATIONDrug Abuse 2 General Instructions [facility] Emergency Department [address] [place] [address] Phone #: ext- [phone] 06/28/2020 19:40 Patient: [...] job or your family Arrest, conviction, and care home sentence for possession of an illegal substance [...] to continue abusing drugs. 3 General Instructions [facility] Emergency Department [address] [place] [address] Phone #: ext- [phone] 06/28/2020 19:40 -- Patient: BRUNA LEE Sex: F : 1985 Age: 35y Eat a balanced diet and start a regular exercise program.Follow-up careFollow up with your healthcare provider, or as advised. Contact one of the resources below for help: National [place] on Alcoholism and Drug Dependence, www.ncadd.org, Narcotics Anonymous, www.Sustainability Roundtable.org, National Alcohol and Substance Abuse Information Center, www.Nextcar.com, . This center can refer you to a treatment program.Call [phone] if any of the following occur: Seizure [...] at an injection site 4 General Instructions [facility] Emergency Department [address] [place] [address] Phone #: ext- [phone] 06/28/2020 19:40 Patient: BRUNA LEE Sex: F : 1985 Age: 35y [phone] [employer]. [address] [place] [address], [place] [address]. All rights reserved. This information is not [...] yourself out of the 5 General Instructions [facility] Emergency Department [address] [place] [address] Phone #: ext- [phone] 06/28/2020 19:40 Patient: [...] You have trouble speaking Your vision changes [phone] [employer]. [address] [place] [address]. All rights reserved. This information is not intended as asubstitute for professional medical care. Always follow your healthcare professional's instructions. You have been given the following additional information: Drug Abuse Headache, Tension 6 General Instructions [facility] Emergency Department [address] [place] [address] Phone #: ext- [phone] 06/28/2020 19:40 ------- Patient: BRUNA LEE Sex: F : 1985 Age: 35y(Electronically signed by RASHID Godwin 06/29/2020 20:04) Name Value Range Interpretation Code Description Data Elmira rce(s) Supporting Document(s) ID Date Data Source [id number] 06/28/2020 07:41:00 PM EDT [facility] 1 Clinical Report - Nurses [facility] Emergency Department [address] [place] [address] Phone #: ekv- [phone] 06/28/2020 19:40 Patient: BRUNA LEE Sex: F [...] treated for.Pt states she was seen at [facility] and left AMA because she was not being seen. Pt is able to speak in fullclear sentences, in NAD at this time sating at 96% on RA. 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 [...] Suboxone Sublingual 04/05 , daily. --19:48 06/28/20 Kelly Chand R.N. cloNIDine HCl Oral (Tablet 0.2 [...] Chand R.N. 2 Clinical Report - Nurses [facility] Emergency Department [address] [place] [address] Phone #: ext- [phone] 06/28/2020 19:40 Patient: [...] no deficiencies. 3 Clinical Report - Nurses [facility] Emergency Department [address] [place] [address] Phone #: ext- [phone] 06/28/2020 19:40 Patient: BRUNA LEE Sex: F [...] Mariana Trammell 4 Clinical Report - Nurses [facility] Emergency Department [address] [place] [address] Phone #: ext- [phone] 06/28/2020 19:40 Patient: [...] 100%. --20:46 06/28/20 Mariana Trammell.DISPOSITION / DISCHARGE [place] Coma Scale: 15- eyes open- spontaneous (4); best verbal response- oriented (5); best motor response- obeys commands (6). Departure time: 21:07 06/28/2020. Condition at departure: improved. No learning barriers present. Discharge instructions provided and reviewed with the patient. Reviewed referral to family practice for followup. Patient verbalized understanding. Written instructions not provided in Slovak. The patient was discharged home. She left [...] rce(s) Supporting Document(s) ID Date Data Source [id number] 06/28/2020 07:41:00 PM EDT [facility] 1 Clinical Report - Physicians/Mid Levels [facility] Emergency Department [address] [place] [address] Phone #: ext- [phone] 06/28/2020 19:40 [id number] Sex[facility] F : 1985 Age: 35y Time [...] for. Pt states she was seen at [facility] and left AMA because she was not [...] abuse. 2 Clinical Report - Physicians/Mid Levels [facility] Emergency Department [address] [place] [address] Phone #: [phone] ext- [phone] 06/28/2020 19:40 Patient: BRUNA LEE Sex: F [...] ROM. 3 Clinical Report - Physicians/Mid Levels [facility] Emergency Department [address] [place] [address] Phone #: ext- [phone] 06/28/2020 19:40 Patient: BRUNA LEE Sex: F [...] referral: 4 Clinical Report - Physicians/Mid Levels [facility] Emergency Department [address] [place] [address] Phone #: ext- [phone] 06/28/2020 19:40 [id number] Sex[facility] F : 1985 Age: 35y e valuation and treatment. Summary of care provided to patient. Understanding of the discharge instructions verbalized by patient.(Electronically signed by RASHID Godwin 06/29/2020 20:04) Name Value Range Interpretation Code Description Data Elmira rce(s) Supporting Document(s) ID Date Data Source [id number] 06/17/2020 08:41:00 [place] [address] RESPIRATORY CARE REPORT ==== ---------NAME------- NUMBER SEX AGE ADMIT DISC. XRAY# F/C TYPECOME BRUNA [id number] F 34 06/16/20 06/16/20 [id number] X6B E/R DATE OF : 1985 M/R# [id number] PH#: [phone] TR-03 LOCATION: EMERGENCY DEPT EKG 13563 COMP LETE:06/17/20 02:50 T [id number] PHYSICIAN: HIEU CLIFFORD KARAN Name Value Range Interpretation Code Description Data Elmira rce(s) Supporting Document(s) ID Date Data Source [id number] 06/17/2020 10:02:00 [place] [address] PHONE: [phone] FAX: [phone] Name .................. : JESUS MOSLEY Acct Number.................. : [id number] ROOM. ................. : - Number ................... : [id number] Stay type ............. : E/R Discharge Date......... ... : 06/16/20 Admit Date ......... : 06/16/20 Admit Phys .................... : HIEU JENSEN Date of ....... : 1985 Family Phys ................... : NON STAFF Phone .................. : [phone] Age ................................ : 34 Film# .................. .:[id number] Sex ................................. : F Unsigned transcriptions are preliminary reports and do not represent a medical or legal document CHEST PORTABLE [id number] COMPLETE:06/16/20 19:31 KHAI 9302 Reason( s): Chest Pain PORTABLE CHEST X-RAY: INDICATION: Chest pain. FINDINGS: The cardiac and mediastinal silhouettes appear normal and the lungs are clear. The bones and soft tissues are normal. The upper abdomen is unremarkable. IMPRESSION: No acute disease identifiable. Electronically Reviewed and Signed By Dakota Fernández M.D. , 06/17/20 10:03, [place] Transcribe Initials: MADDISON , Transcribe Date: 06/16/20 21:15, Dictation Date: Copy for: REJI Bundy via fax Copy for: EMERGENCY DEPT via [facility] Copy for: 710 MED REC DISCHARGED Page 1 of 1 Name Value Range Interpretation Code Description Data Elmira rce(s) Supporting Document(s) ID Date Data Source [id number] 06/16/2020 04:22:00 PM EDT [facility] 1 OrderSheet [facility] Emergency Department [address] [place] [address] Phone #: ext- [phone] 06/16/2020 16:20 [id number] Sex: F : 1985 Age: 34yWEIGHT:70.7 kg [...] Description Priority Entered Acknowledged Initialed 2 OrderSheet [facility] Emergency Department [address] [place] [address] Phone #: ext- [phone] 06/16/2020 16:20 --------- [...] InitialedCardiac Monitor 17:06 06/16/2020 17:31 Ruthie Espinal(continuous) yJotsna MIKE; R.N.Blood Pressure 17:06 06/16/2020 17:31 Clive Espinal; R.N.Pulse oximeter 17:06 06/16/2020 17:31 Ruthie Espinal(Continuous) Jyotsna MIKE; R.N.EKG 17:06 06/16/2020 17:31 Ruthie Espinal; R.N.[Electronically signed by Jyotsna Clifford (21:17 06/16/2020)][Electronically signed by Jovan Damon R.N. (03:08 06/17/2020)][Electronically locked by Jovan Damon R.N. (03:08 06/17/2020)] Name Value Range Interpretation Code Description Data Elmira rce(s) Supporting Document(s) ID Date Data Source [id number] 06/16/2020 04:22:00 PM EDT [facility] 1 Medication Reconciliation Report [facility] Emergency Department [address] [place] [address] Phone #: ext [phone] 06/16/2020 16:20 Patient: BRUNA LEE Sex: F [...] to the patient:None. 2 Medication Reconciliation Report [facility] Emergency Department [address] [place] [address] Phone #: ext [phone] 06/16/2020 16:20 Patient: BRUNA LEE Sex: F : 1985 Age: 34y Name Value Range Interpretation Code Description Data Elmira rce(s) Supporting Document(s) ID Date Data Source [id number] 06/16/2020 04:22:00 PM EDT [facility] 1 Medication Administration Record [facility] Emergency Department [address] [place] [address] Phone #: ext- [phone] 06/16/2020 16:20 Patient: BRUNA LEE Sex: F : 1985 Age: 34yWeight: 70.7 kgHeight/Length: 60 inBMI: 30.4ALLERGIES: Penicillins, Sulfa AntibioticsDate/Time Medication Administered Medication Ordered Name Value Range Interpretation Code Description Data Elmira rce(s) Supporting Document(s) ID Date Data Source [id number] 06/16/2020 04:22:00 PM EDT [facility] 1 General Instructions [facility] Emergency Department [address] [place] [address] Phone #: ext- [phone] 06/16/2020 16:20 Patient: [...] with patientand understanding verbalized. 2 General Instructions [facility] Emergency Department [address] [place] [address] Phone #: ext- [phone] 06/16/2020 16:20 Patient: [...] may also be needed. 3 General Instructions [facility] Emergency Department [address] [place] [address] Phone #: ext- [phone] 06/16/2020 16:20 [...] begin to improve in thenext 24 hours.Call [phone] if any of these occur: Trouble breathing Confusion 4 General Instructions [facility] Emergency Department [address] [place] [address] Phone #: ext- [phone] 06/16/2020 16:20 Patient: [...] or water and you are getting dehydrated [id number] [employer]. [address] [place] [address]. All rights reserved. This information is not intended as asubstitute for professional medical care. Always follow your healthcare professional's instructions.Sweet Grass DietYour healthcare provider may recommend a bland diet if you have an upset stomach. It consists offoods that are mild and easy to digest. It is better to eat small frequent meals rather than 3 largemeals a day. 5 General Instructions [facility] Emergency Department [address] [place], [place] [id number] Phone #: ext- [phone] 06/16/2020 16:20 Patient: BRUNA LEE Sex: F : 1985 Age: 34yBeveragesOK: Fruit juices, non-caffeinated teas and coffee, non-carbonated watersAvoid: Carbonated beverage, caffeinated tea and coffee, all alcoholic beveragesBreadOK: Refined white, wheat or rye bread, kelly or soda crackers, [place] toast, plain rolls, bagelsAvoid: Whole-grain breadCerealOK: Refined cereals: cooked or ready to eatAvoid: Whole-grain cereals and granola, or those containing bran, seeds or nutsDessertsOK: Peanut butter and all others except those to "avoid"Avoid: Chocolate, cocoa, coconut, popcorn, nuts, seeds, jam, marmaladeFruitsOK: Canned, cooked, frozen or fresh fruits without seeds or tough skinAvoid: Olives, skin and seeds of fruit, dried fruitMeats 6 General Instructions [facility] Emergency Department [address] [place] [address] Phone #: ext- [phone] 06/16/2020 16:20 Patient: [...] extracts, kristopher, cinnamon, thyme, mace, allspice, paprikaAvoid: Cossayuna powder, cloves, pepper, seed spices, garlic, gravy pickles, highly seasoned saladdressings [employer]. [address] [place] [address]. All rights reserved. This information is not intended as asubstitute for professional medical care. Always follow your healthcare professional's instructions.Clear Liquid Diet 7 General Instructions [facility] Emergency Department [address] [place] [address] Phone #: nia- [phone] 06/16/2020 16:20 Patient: BRUNA LEE Sex: F [...] grocery stores. You don't need aprescription. [employer]. [address] [place] [address], [place] [address]. All rights reserved. This information is not intended as asubstitute for professional medical care. Always follow your healthcare professional's instructions. You have been given the following additional information: Abdominal Pain, Unknown Cause, (Female) Diet, Sweet Grass (Adult) Clear Liquid Diet 8 General Instructions [facility] Emergency Department [address] [place] [address] Phone #: ext- [phone] 06/16/2020 16:20 Patient: BRUNA LEE Sex: F : 1985 Age: 34yNo strenuous activity until better. Rest at home for one days.(Electronically signed by RASHID Sanchez 06/16/2020 21:17) Name Value Range Interpretation Code Description Data Elmira rce(s) Supporting Document(s) ID Date Data Source [id number] 06/16/2020 04:22:00 PM EDT [facility] 1 Clinical Report - Nurses [facility] Emergency Department [address] [place] [address] Phone #: ext- [phone] 06/16/2020 16:20 Patient: BRUNA LEE Sex: F : 1985 Age: 34yTRIAGEArrived by EMS. Historian: patient. Unaccompanied. ( went to [facility] today for feeling like she had beenpoisoned, she thinks her mother and sister poisoned, feels like she is going down hill with her health, shestates she is suing [facility] because they are not listening to her, [facility] by [facility]).Acuity: LEVEL 4.Chief Complaint: BIZARRE BEHAVIOR.Alert.Onset. 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 2 Clinical Report - Nurses [facility] Emergency Department [address] [place] [address] Phone #: ext- [phone] 06/16/2020 16:20 [...] Maldonado R.N. 3 Clinical Report - Nurses [facility] Emergency Department [address] [place] [address] Phone #: ext- [phone] 06/16/2020 16:20 Patient: [...] Moreau, RN 4 Clinical Report - Nurses [facility] Emergency Department [address] [place] [address] Phone #: ext- [phone] 06/16/2020 16:20 Patient: BRUNA LEE Sex: F [...] Patient verbalized understanding. Written instructions provided in Slovak. The patient was discharged by the physician pediatric assistant. She was discharged home. She left [...] rce(s) Supporting Document(s) ID Date Data Source [id number] 06/16/2020 04:22:00 PM EDT [facility] 1 Clinical Report - Physicians/Mid Levels [facility] Emergency Department [address] [place] [address] Phone #: ext- [phone] 06/16/2020 16:20 Patient: [...] by a health care provider (went to [facility] today twice, escorted off property twice per [...] Pharyngitis. 2 Clinical Report - Physicians/Mid Levels [facility] Emergency Department [address] [place] [address] Phone #: ext- [phone] 06/16/2020 16:20 Patient: BRUNA LEE Sex: F [...] normal. 3 Clinical Report - Physicians/Mid Levels [facility] Emergency Department [address] [place] [address] Phone #: ext- [phone] 06/16/2020 16:20 Patient: BRUNA LEE Sex: F [...] Weeks post LMP 5.4-708 mU/mL 3-4 Weeks 217-97343 mU/mL 5-6 Weeks 4059-648364 mU/mL 7-8 Weeks 63030-911114 mU/mL 9-10 Weeks 36576-91624 mU/mL 12-14 Weeks 02152-26620 mU/mL 15-16 Weeks 8240-58857 mU/mL 17-18 Weeks CBC w Diff: (JENN: [...] PANEL 4 Clinical Report - Physicians/Mid Levels [facility] Emergency Department [address] [place] [address] Phone #: ext- [phone] 06/16/2020 16:20 Patient: BRUNA LEE Sex: F [...] Male GFR Interprentation 20-49 yrs >60 mL/min Mlflql18-91 yrs >56 mL/min Normal 60-69 yrs >49 mL/min Normal 70-79yrs>42 mL/min Normal 80 and above >35 mL/min Normal Female GFRInterpretation 20-39 yrs >60 mL/min Normal 40-49 yrs >58 mL/minNormal 50-59 yrs >51 mL/min Normal 60-69 yrs >45 mL/min Qbrfdn81-02 yrs >39 mL/min Normal 80 and above [...] (0.2 - 2.2)Lipase: (JENN: 06/16/2020 18:16) ( [facility]/16[facility] 19:11) Final results Test Result Flag Units (Reference) LIPASE 13 U/L (13 - 60)Magnesium: (JENN: 06/16/2020 18:16) ( [facility] 06/16/2020 19:11) Final results Test Result Flag Units (Reference) MAGNESIUM 2.2 MG/DL (1.7 - 2.2)Acetaminophen Level: (JENN: 06/16/2020 18:16) ( [facility] 06/16/2020 19:11) Final results Test Result Flag Units (Reference) ACETAMINOPHEN 8.7 UG/ML (0.0 - 30.0)Salicylate Level: (JENN: 06/16/2020 18:16) ( [facility] 06/16/2020 19:25) Final results Test Result Flag Units (Reference) 5 Clinical Report - Physicians/Mid Levels [facility] Emergency Department [address] [place] [address] Phone #: ext- [phone] 06/16/2020 16:20 Patient: BRUNA LEE Sex: F : 1985 Age: 34y SALICYLATE <0.3 L mg/dL (2.0 - 20.0) PT/PTT: (JENN: 06/16/2020 18:16) ( [facility] 06/16/2020 19:26) Final results Test Result Flag Units (Reference) PROTIME 12.5 SECONDS (11.0 - 15.5) INR 0.89 L (0.93 - 1.23) PTT 39.8 H SECONDS (24.8 - 36.7) \\BLDo\\INR INTERPRETATION\\BLDx\\ Therapeutic range for Coumadin and related oral anticoagulants. - International Normalized Ratio (INR): 2.0 - 3.0 for Venous Thrombosis, Pulmonary Embolus, Tissue heart valves, Acute [place] Atrial Fibrillation, Valvular heart disease and recurrent Systemic Embolism. -International Normalized Ratio (INR): 2.5 - 3.5 for Mechanical Prosthetic valve. Troponin-T: (JENN: 06/16/2020 18:16) ( [facility] 06/16/2020 19:25) Final results Test Result Flag Units (Reference) TROPONIN T <0.01 NG/ML (0.00 - 0.10) TROPONIN T0.1 ng/ml Recommended as the clinical threshold value forTroponin T. Urinalysis: (JENN: 06/16/2020 18:46) ( [facility] 06/16/2020 19:24) Final results Test Result [...] Venous Blood Gas: (JENN: 06/16/2020 18:16) ( [facility] 06/16/2020 18:40) Final results Test Result [...] with grossly normal labs, normal activity on cardiac cath technologist, othervitals WNL throughout ED course, resting comfortably in ED exam rm bed throughout ED course, no 6 Clinical Report - Physicians/Mid Levels [facility] Emergency Department [address] [place] [address] Phone #: ext- [phone] 06/16/2020 16:20 Patient: [...] appointment. 7 Clinical Report - Physicians/Mid Levels [facility] Emergency Department [address] [place] [address] Phone #: ext- [phone] 06/16/2020 16:20 Patient: [...] rce(s) Supporting Document(s) ID Date Data Source [id number] 06/16/2020 07:31:00 PM EDT [facility] Name Value Range Interpretation Code Description Data [place]mira rce(s) Supporting Document(s) DRUG SCREEN URINE [facility] URINE DRUG SCREEN Amphetamine [Presence] in Urine by Screen method PRESUMP POS ZAYNAB L: NEGATIVE A [facility] BARBITURATES NEGATIVE NORMAL: NEGATIVE [facility] BENZO NEGATIVE NORMAL: NEGATIVE [facility] COCAINE PRESUMP POS NORMAL: NEGATIVE [facility] Tetrahydrocannabinol [Presence] in Urine NEGATIVE NORMAL: NEGATIVE [facility] OPIATES NEGATIVE NORMAL: NEGATIVE [facility] Phencyclidine [Presence] in Urine by Screen method NEGATIVE NOR MAL: NEGATIVE [facility] \\BLDo\\URINE DRUG SCR EEN INTERPRETATION\\BLDx\\ THE CUTOFFF LEVELS FOR DETECTION ARE FOLLOWS: AMPHETAMINES 1000 ng/ml BARBITUARATES 200 ng/ml BENZODIAZEPINES 100 ng/ml THC 50 ng/ml PHENCYCLIDINE 25 ng/ml OPIATES 300 ng/ml COCAINE 300 ng/ml ALL POSITIVES ARE CONSIDERED PRESUMPTIVE POSITIVE CONFIRMATION WILL BE PERFORMED AT PHYSICIAN REQUEST. ID Date Data Source [id number] 06/16/2020 07:24:00 PM EDT [facility] Name Value Range Interpretation Code Description Data [place]ira rce(s) Supporting Document(s) [facility] SOURCE Clean Catch [facility] ital COLOR Yellow NORMAL: Yellow [facility] ospital CLARITY Clear NORMAL: Clear [facility] Ho spital Specific gravity of Urine by Test strip 1.010 1.001 - 1.030 [facility] pH 7 5 - 9 [facility] Glucose [Mass/volume] in Urine by Test strip NORM NORMAL: Negat [facility] Bilirubin.total [Presence] in Urine by Test strip NEG NORMAL: Negative [facility] Ketones [Presence] in Urine by Test strip NEG NORMAL: Negative [facility] Protein [Mass/volume] in Urine by Test strip NEG NORMAL: Negat [facility] Nitrite [Presence] in Urine by Test strip NEG NORMAL: Negative [facility] BLOOD NEG NORMAL: Negative [facility] Leukocyte esterase [Presence] in Urine by Test strip NEG ZAYNAB L: Negative [facility] Urobilinogen [Mass/volume] in Urine by Test strip NOR less kenna n 1.0 mg/dL [facility] MICROSCOPIC Not Indicate [facility] H ospital ID Date Data Source [id number] 06/16/2020 07:25:00 PM EDT [facility] Name Value Range Interpretation Code Description Data [place]ira rce(s) Supporting Document(s) Prothrombin time (PT) 12.5 SECONDS 11.0 - 15.5 [facility] INR in Platelet poor plasma by Coagulation assay 0.89 0.93 - 1. 23 L [facility] aPTT in Blood by Coagulation assay 39.8 SECONDS 24.8 - 36.7 H [facility] \\BLDo\\INR INTERPRETATION\\BLDx\\ Therapeutic range for Coumadin and related oral anticoagulants. - International Normalized Ratio (INR): 2.0 - 3.0 for Venous Thrombosis, Pulmonary Embolus, Tissue heart valves, Acute [place] Atrial Fibrillation, Valvular heart disease and recurrent Systemic Embolism. - International Normalized Ratio (INR): 2.5 - 3.5 for Mechanical Prosthetic valve. ID Date Data Source [id number] 06/16/2020 07:25:00 PM EDT [facility] Name Value Range Interpretation Code Description Data [place] rce(s) Supporting Document(s) Choriogonadotropin.intact [Units/volume] in Serum or Plasma <0.5 mIU/ mL [facility] Interpr etation: Less than 5 mU/mL: Negative 6-10 mU/mL: Borderline (suggest repeat in 48 hours) >10: Positive Approx HCG range (mU/mL) Weeks post LMP 5.4-708 mU/mL 3-4 Weeks 217-98273 mU/mL 5-6 Weeks 4059-410741 mU/mL 7-8 Weeks 56335-774974 mU/mL 9-10 Weeks 93286-94548 mU/mL 12-14 Weeks 83654-57521 mU/mL 15-16 Weeks 8240- 12672 mU/mL 17-18 Weeks ID Date Data Source [id number] 06/16/2020 07:25:00 PM EDT [facility] Name Value Range Interpretation Code Description Data [place] rce(s) Supporting Document(s) TROPONIN T <0.01 NG/ML 0.00 - 0.10 [facility] ospital TROPONIN T0.1 ng/ml Recommended as the c linical threshold value forTroponin T. ID Date Data Source [id number] 06/16/2020 07:25:00 PM EDT [facility] [facility] Name Value Range Interpretation Code Description Data [place] rce(s) Supporting Document(s) SALICYLATE <0.3 mg/dL 2.0 - 20.0 [facility] pital ID Date Data Source [id number] 06/16/2020 07:25:00 PM EDT [facility] Name Value Range Interpretation Code Description Data [place] rce(s) Supporting Document(s) COMPREHENSIVE METABOLIC PANEL [facility] COMPREHENSIVE METABOLIC PANEL Sodium [Moles/volume] in Serum or Plasma 139 mEq/L 134 - 153 [facility] Potassium [Moles/volume] in Serum or Plasma 4.3 mEq/L 3.6 - 5.0 [facility] Chloride [Moles/volume] in Serum or Plasma 100 mEq/L 98 - 107 [facility] Carbon dioxide, total [Moles/volume] in Serum or Plasma 26 MEQ/L 22 - 30 [facility] Glucose [Mass/volume] in Serum or Plasma 76 MG/DL 70 - 99 [facility] BUN 9 MG/DL 7 - 21 [facility] Creatinine [Mass/volume] in Serum or Plasma 0.5 MG/DL 0.7 - 1.5 L [facility] BUN/CREAT 18 8 - 27 [facility] Protein [Mass/volume] in Serum or Plasma 8.0 G/DL 6.3 - 8.2 [facility] Albumin [Mass/volume] in Serum or Plasma 5.0 G/DL 3.9 - 5.0 [facility] Globulin [Mass/volume] in Serum by calculation 3.0 GM/DL 2.4 - 3.2 [facility] A/G RATIO 1.7 0.8 - 2.0 [facility] Calcium [Mass/volume] in Serum or Plasma 10.6 MG/DL 8.4 - 10.2 H [facility] Bilirubin.total [Mass/volume] in Serum or Plasma <0.7 MG/DL 0.2 - 1.3 [facility] Alkaline phosphatase [Enzymatic activity/volume] in Serum or Plasma 86 U/L 38 - 126 [facility] Aspartate aminotransferase [Enzymatic activity/volume] in Serum or Plasma 30 U/L 5 - 40 [facility] Alanine aminotransferase [Enzymatic activity/volume] in Seru m or Plasma 25 U/L 7 - 56 [facility] Anion gap 3 in Serum or Plasma 13.0 mmol/L 8.0 - 16.0 [facility] AGE 34 [address] [facility] Hospit al NON-AA GFR >60 mL/min [facility] ital AFR AMER GFR >60 mL/min [facility] sp[facility] Male GFR In terprentation [...] >32 mL/min Normal ID Date Data Source [id number] 06/16/2020 07:11:00 PM EDT [facility] Name Value Range Interpretation Code Description Data [place] rce(s) Supporting Document(s) Acetaminophen [Presence] in Urine 8.7 UG/ML 0.0 - 30.0 [facility] ID Date Data Source [id number] 06/16/2020 07:11:00 PM EDT [facility] Value Range Interpretation Code Description Data [place] rce(s) Supporting Document(s) Magnesium [Mass/volume] in Serum or Plasma 2.2 MG/DL 1.7 - 2.2 [facility] ID Date Data Source [id number] 06/16/2020 07:11:00 PM EDT [facility] Value Range Interpretation Code Description Data [place] rce(s) Supporting Document(s) Lipase [Enzymatic activity/volume] in Serum or Plasma 13 U/L 13 - 60 [facility] ID Date Data Source [id number] 06/16/2020 07:11:00 PM EDT [facility] Value Range Interpretation Code Description Data [place] rce(s) Supporting Document(s) Ethanol [Moles/volume] in Blood <10.0 MG/DL [facility] ALCOHOL % 0.01 % 0.00 - 0.[address] [facility] ital *FOR MEDICAL PURPOSES ONLY * ID Date Data Source [id number] 06/16/2020 07:06:00 PM EDT [facility] Name Value Range Interpretation Code Description Data [place] rce(s) Supporting Document(s) CBC W/AUTOMATED DIFF [facility] COMPLETE BLOOD COUNT Leukocytes [#/volume] in Blood by Automated count 6.8 10^3/uL 4.2 - 1 1.0 [facility] Erythrocytes [#/volume] in Blood by Automated count 4.84 10^6/uL 4. 20 - 5.40 [facility] Hemoglobin [Mass/volume] in Blood 14.3 g/dL 12.0 - 16.0 [facility] Hematocrit [Volume Fraction] of Blood by Automated count 43.3 % 3 7.0 - 47.0 [facility] Erythrocyte mean corpuscular volume [Entitic volume] by Auto mated count 89.5 fL 81.0 - 101 [facility] Erythrocyte mean corpuscular hemoglobin [Entitic mass] by Automated count 29.5 pg 27.0 - 34.0 [facility] Erythrocyte mean corpuscular hemoglobin concentration [Mass/volume] by Automated count 33.0 g/dL 31.0 - 36.0 [facility] Erythrocyte distribution width [Ratio] by Automated count 13.2 % 11.5 - 14.5 [facility] Platelets [#/volume] in Blood by Automated count 340 10^3/uL 150 - 45 0 [facility] Platelet mean volume [Entitic volume] in Blood by Automated count 9.9 fL 7.4 - 10.4 [facility] Neutrophils/100 leukocytes in Blood by Automated count 60.0 % 37. 0 - 80.0 [facility] Lymphocytes/100 leukocytes in Blood by Manual count 29.5 % 25.0 - 40.0 [facility] Monocytes/100 leukocytes in Blood by Automated count 7.4 % 3.0 - 8.0 [facility] Eosinophils/100 leukocytes in Blood by Automated count 2.2 % 0.0 - 7.0 [facility] Basophils/100 leukocytes in Blood by Automated count 0.6 % 0.0 - 2.5 [facility] %IG 0.3 % 0.0 - 0.[address] [facility] Hospit al %NRBC 0.0 % 0.0 - 0.0 [facility] al Neutrophils [#/volume] in Blood by Automated count 4.05 10^3/uL 2.00 - 6.90 [facility] Lymphocytes [#/volume] in Blood by Automated count 1.99 10^3/uL 0.60 - 3.40 [facility] Monocytes [#/volume] in Blood by Automated count 0.50 10^3/uL 0.00 - 0.90 [facility] Eosinophils [#/volume] in Blood by Automated count 0.15 10^3/uL 0.00 - 0.70 [facility] Basophils [#/volume] in Blood by Automated count 0.04 10^3/uL 0.00 - 0.20 [facility] #IG 0.02 10^3/uL 0.00 - 0.[address] [facility] #NRBC 0.00 10^3/uL 0.00 - 0.00 [facility] ospital MANUAL DIFF NOT INDICATED [facility] RBC MORPH NOT INDICATED [facility] spital ID Date Data Source [id number] 06/16/2020 06:40:00 PM EDT [facility] Name Value Range Interpretation Code Description Data [place] rce(s) Supporting Document(s) pH of Serum or Plasma 7.37 7.32 - 7.43 [facility] pCO2 V 46.9 mm/HG 38.0 - 51.[address] [facility] p[facility] pO2 V 55.8 mm/HG 30.0 - 55.[address] [facility] Bicarbonate [Moles/volume] in Venous blood 26.5 meq/L 22.0 - 29.0 [facility] TCO2 V 28.0 meq/L 22.0 - 29.[address] [facility] Base excess in Blood by calculation 0.7 -2.0 - 2.0 [facility] O2 SAT V 87.7 % 40.0 - 85.0 [facility] ital ID Date Data Source [id number] 06/16/2020 06:40:00 PM EDT [facility] Name Value Range Interpretation Code Description Data [place] rce(s) Supporting Document(s) Lactate [Moles/volume] in Serum or Plasma 2.1 MMOL/L 0.2 - 2.2 [facility] ID Date Data Source [id number] 06/02/2020 09:35:00 PM EDT [facility] Name Value Range Interpretation Code Description Data [place] rce(s) Supporting Document(s) SARS-CoV-2 (COVID 19) NEGATIVE - SARS-CoV-2 (COVID19) [facility] This lab was ordered by [facility] a nd reported by [facility]. ID Date Data Source [id number] 04/21/2020 05:41:00 PM EST [facility] Name Value Range Interpretation Code Description Data [place] rce(s) Supporting Document(s) SARS coronavirus 2 RNA [Presence] in Res piratory specimen by MARK with probe detection NEGATIVE [facility] This lab was ordered by [facility] a nd reported by [facility]. ID Date Data Source [id number] 04/10/2020 02:50:00 PM EST [facility] Name Value Range Interpretation Code Description Data [place] rce(s) Supporting Document(s) SARS coronavirus 2 RNA [Presence] in Res piratory specimen by MARK with probe detection POSITIVE [facility] This lab was ordered by [facility] a nd reported by [facility]. ID Date Data Source [id number] 04/09/2020 02:48:00 AM EST [facility] Name Value Range Interpretation Code Description Data [place] rce(s) Supporting Document(s) SARS COVID ANTIGEN POSITIVE [facility] a nd reported by [facility]. ID Date Data Source [id number] 04/09/2020 02:46:00 AM EST [facility] Name Value Range Interpretation Code Description Data [place] rce(s) Supporting Document(s) SARS COVID ANTIGEN POSITIVE [facility] This lab [facility] a nd reported by [facility]. ID Date Data Source [id number] 03/04/2020 12:09:00 PM EST [facility] Name Value Range Interpretation Code Description Data [place] rce(s) Supporting Document(s) FAZAL DIRECT Negative Negative [facility] Performed at: RN - [facility] [address] [place], [place] [id number] Director: Elsa Garcia MD, Phone: [phone] ID Date Data Source [id number] 03/04/2020 12:05:00 PM EST [facility] Name Value Range Interpretation Code Description Data [place] rce(s) Supporting Document(s) FAZAL Direct Negative Negative [facility] ID Date Data Source [id number] 03/03/2020 08:50:00 AM EST [facility] ADD ON TEST Name Value Range Interpretation Code Description Data [place] rce(s) Supporting Document(s) RHEUMATOID FACTOR SCREEN NEGATIVE NEGATIVE [facility] ID Date Data Source [id number] 03/03/2020 08:37:00 AM EST [facility] ADD ON TEST Name Value Range Interpretation Code Description Data [place] rce(s) Supporting Document(s) FREE T4 1.0 ng/dL 0.76-1.46 [facility] ID Date Data Source [id number] 03/03/2020 08:37:00 AM EST [facility] ADD ON TEST Name Value Range Interpretation Code Description Data [place] rce(s) Supporting Document(s) TSH 0.422 uIU/mL 0.36-3.74 [facility] ID Date Data Source [id number] 03/03/2020 08:11:00 AM EST [facility] ADD ON TEST Name Value Range Interpretation Code Description Data [place] rce(s) Supporting Document(s) C REACTIVE PROTEIN 15.6 mg/L 0.0-3.0 [facility] ID Date Data Source [id number] 03/03/2020 08:11:00 AM EST [facility] ADD ON TEST Name Value Range Interpretation Code Description Data [place] rce(s) Supporting Document(s) GLUCOSE 85 mg/dL 74-106 [facility] BLOOD UREA NITROGEN 11 mg/dL 7-18 [facility] ital CREATININE 0.88 mg/dL 0.6-1.0 [facility] SODIUM 135 mmol/L 136-145 L [facility] POTASSIUM 4.1 mmol/L 3.5-5.1 [facility] CHLORIDE 99 mmol/L 98-107 [facility] CO2 26 mmol/L 21-32 [facility] CALCIUM 8.8 mg/dL 8.5-10.1 [facility] ANION GAP 10.0 mmol/L 5-12 [facility] GLOMERULAR FILTRATION RATE 74 mL/min [facility] GFR IS CALCULATED IN mL/min/1.73m2 ZAYNAB L FUNCTION: >90MILDLY DECREASED: 60-89MILDY TO MODERATELY DECREASED: 45-59 MODERATELY TO SEVERELY DECREASED: 30-44SEVERELY DECREASED: 15-29RENAL FAILURE: <15 AST 32 U/L 15-37 [facility] ALT 32 U/L 12-78 [facility] ALKALINE PHOSPHATASE 65 U/L 46-116 [facility] pital TOTAL BILIRUBIN 0.2 mg/dL 0.2-1.0 [facility] TOTAL PROTEIN 6.9 g/dl 6.4-8.2 [facility] ALBUMIN 3.9 gm/dL 3.4-5.0 [facility] ID Date Data Source [id number] 03/01/2020 05:46:00 PM EST [facility] Name Value Range Interpretation Code Description Data [place] rce(s) Supporting Document(s) CHOLESTEROL 193 mg/dL 0-200 [facility] TRIGLYCERIDES 86 mg/dL 0-150 [facility] LDL CHOLESTEROL 111 mg/dL 0-100 H [facility] HDL CHOLESTEROL 65 mg/dL 40-60 H [facility] CHOL/HDL RATIO 3.0 0.0-5.0 [facility] ID Date Data Source [id number] 02/29/2020 10:40:00 AM EST [facility] Name Value Range Interpretation Code Description Data [place] rce(s) Supporting Document(s) SARS coronavirus 2 RNA [facility] This lab was ordered by [facility] and reported by [facility]. ID Date Data Source [id number] 12/10/2019 11:15:00 AM EDT [facility] [address] [id number] NAME: BRUNA LEE#: [id number] PHYSICIAN: PRERNA RIOS MD ADM. DATE: 12/05/19ACCOUNT #: [id number] DISCH. DATE:DISCHARGE SUMMARYIDENTIFICATION: A 34-year-old female with schizoaffective disorder,polysubstance dependence.CHIEF COMPLAINT: "I don't know why I am here."REASON FOR ADMISSION: Post- overdose.HISTORY OF PRESENT ILLNESS: The patient was interviewed in ICU after sheoverdosed. The patient was seen in [facility] for a regularconsultation, she could [...] [place] The last time in our service with [...] ABUSE: None.SOCIAL HISTORY: The patient is from [place], did not finish high school.She was in [...] The patient was discharged with the medications Qfmcqk14 mg p.o. daily, Neurontin 600 mg p.o. [...] be enrolled in outpatient chemical dependence in [place].MENTAL STATUS EXAMINATION: The patient is pleasant, cooperative. [...] Dictated: 12/10/2019 09:34:34Date Transcribed: 12/10/2019 10:15:05JV/PUSVinnie #: [id number]: 12/10/19 0934 Electronically SignedTRANS:12/10/19 1115 PRERNA RIOS MDTRANS BY:ADE SIGNED:12/10/19REPORT COPY TO: Name Value Range Interpretation Code Description Data [place] rce(s) Supporting Document(s) ID Date Data Source [id number] 12/10/2019 06:43:00 AM EDT [facility] [place] [id number] NAME: BRUNA LEE#: [id number] PHYSICIAN: PRERNA RIOS MDACCOUNT #: [id number] ADM. DATE: 12/05/19PATIENT : 89 DISCH. DATE: [...] follow-upappointmentDischarge InformationDISCHARGE INFORMATION* Thank you for choosing [facility] and allowing us toserve you* Our Goal is to provide the highest quality of care.* This discharge information is to help you better understand your diagnosisand medication* Avoid taking jnnj-ypy-dfeczhm medicines unless approved by your physician.* Take your medications as prescribed. DO NOT stop any medications unlessapproved first* Weigh yourself daily. Report any gain of 5 lbs in a week* 24 Hour Crisis HOTLINE available: Call Reachout at [phone]* Chem. Dependency: Walk in Clinics [place] ([phone]) and [place] ([phone]) anytime Sunday thru Sunday 8 to 10am. [place] ([phone]) anytimeSunday thru Sunday 8 to 10am. [place] ([phone]) Sunday or Sunday from 8to 10am (Bring $30 to [facility]) SMOKIN G CESSATION* Smoking is dangerous to your health. It delays the healing process, andworks against your medications. Not smoking will improve your health* Our hospital participates with the Opt-to-Quit program. You will be contactedafter discharge by the [facility] Smoker's Quitline for support with tobaccocessation. You have the option once contacted to refuse this service.* You can also go online to www.[employer]. Free nicotine replacementsare available Attention* You [...] rce(s) Supporting Document(s) ID Date Data Source [id number] 12/10/2019 02:15:00 AM EDT [place], [place] [address]PATIENT NAME: BRUNA LEE#: [id number] PHYSICIAN: PRERNA RIOS MD ADM. DATE: 12/05/19PROGRESS NOTE DATE: 12/09/19 .#: [id number] #: [id number] NOTEIDENTIFICATION: A 34-year-old female with mood disorder [...] Dictated: 12/09/2019 10:52:52Date Transcribed: 12/10/2019 01:15:28JV/RAVJob #: [id number]: 12/09/19 1052 Electronically SignedTRANS:12/10/19 0215 PRERNA RIOS MDTRANS BY:ADE SIGNED:12/10/19REPORT COPY TO: Name Value Range Interpretation Code Description Data [place] rce(s) Supporting Document(s) ID Date Data Source [id number] 12/08/2019 11:58:00 AM EDT [facility] Name Value Range Interpretation Code Description Data [place] rce(s) Supporting Document(s) URINE COLOR Yellow [facility] UAPR Clear [facility] UGLU Negative NEGATIVE [facility] URINE BILIRUBIN Negative NEGATIVE [facility] Hospit al UKET Negative NEGATIVE [facility] USG 1.015 1.010-1.025 [facility] UBLO Negative NEGATIVE [facility] UpH 8.0 5.0-8.0 [facility] UPRO Negative Negative [facility] UUB 0.2 mg/dL 0.2-1.0 [facility] UNIT Negative Negative [facility] ULEU Negative Negative [facility] ID Date Data Source [id number] 12/09/2019 04:57:00 AM EDT [facility] [address] [id number] NAME: BRUNA LEERJayro#: [id number] PHYSICIAN: PRERNA RIOS MD ADM. DATE: 12/05/19PROGRESS NOTE DATE: 12/08/19 RM.#: [id number] #: [id number] NOTEIDENTIFICATION: A 34-year-old female with mood disorder, [...] Dictated: 12/08/2019 10:30:51Date Transcribed: 12/09/2019 03:57:49JV/RAVJob #: [id number]: 12/08/19 1030 Electronically SignedTRANS:12/09/19 0457 PRERNA RIOS MDTRANS BY:IATDATE SIGNED:12/09/19REPORT COPY TO: Name Value Range Interpretation Code Description Data [place] rce(s) Supporting Document(s) ID Date Data Source [id number] 12/06/2019 11:02:00 PM EDT [facility] [id number] NAME: BRUNA LEE#: [id number] PHYSICIAN: PRERNA RIOS MD ADM. DATE: 12/05/19ACCOUNT #: [id number] .#: [id number] ASSESSMENTIDENTIFICATION: A 34-year-old female with schizoaffective disorder andpolysubstance dependence.CHIEF COMPLAINT: "I don't know why I am here."REASON FOR ADMISSION: Post-overdose.HISTORY OF PRESENT ILLNESS: According to the records and our interview, thepatient was brought to our service after being in ICU and the medical floorfor an overdose. The patient went to the outpatient clinic in [facility] and she passed out in consultation. [...] 2 weeks ago, that she was in [place] inpatient service for 5 days forthat.The patient [...] into detail.SOCIAL HISTORY: The patient is from [place]. Did not finish high school.She is in [...] Dictated: 12/06/2019 12:22:47Date Transcribed: 12/06/2019 22:02:14JV/GBJob #: [id number]: 12/06/19 1222 Electronically Signed TRANS:12/06/19 0760 PRERNA RIOS MDTRANS BY:ADE SIGNED:12/07/19REPORT COPY TO: Name Value Range Interpretation Code Description Data [place] rce(s) Supporting Document(s) ID Date Data Source [id number] 12/05/2019 02:12:00 AM EDT [facility] Name Value Range Interpretation Code Description Data [place] rce(s) Supporting Document(s) CKI 109 U/L 17-150 [facility] ID Date Data Source [id number] 12/05/2019 04:49:00 PM EDT [facility] [address] HEALTH HISTORY AND PHYSICALPATIENT NAME: BRUNA LEE MR#: [id number] PHYSICIAN: PRERNA RIOS MDAUTHOR: Melanie Bueno MDckery [...] rce(s) Supporting Document(s) ID Date Data Source [id number] 12/05/2019 09:48:00 AM EDT [facility] [address] [id number] SUMMARYPATIENT NAME: BRUNA LEE MR#: [id number] PHYSICIAN: BEHZAD SOTO MDAUTHOR: Diogenes Bueno MD DATE: 12/04/19 RM#: [id number] DATE: 12/05/19 : 87Summary of HospitalizationReason for AdmissionOverdose on xanax, gabapentin, bath saltsHospital Ozthwd26 yo F who was admitted for an [...] taking the following medications:Gabapentin* (Neurontin*) 400 MG [id number] MILLIGRAM Orally DAILYContinue taking these medications:LEVETIRACETAM (LEVETIRACETA) 1,000 MG TABLET1,000 MILLIGRAM Orally TWICE DAILYQty = 60Amitriptyline HCl (Amitriptyline HCl) 100 MG [id number] MILLIGRAM Orally DAILYSUCRALFATE (Carafate*) 1 GM TABLET1 GM Orally TWICE DAILYcloniDINE* (CLONIDINE*) 0.1 MG TABLET0.1 MILLIGRAM Orally TWICE DAILYOmeprazole Magnesium (Prilosec Otc) 20 MG TABLET.DR20 MILLIGRAM Orally DAILYrispERIdone (RISPERDAL*) 0.5 MG TABLET2 MILLIGRAM Orally TWICE DAILYATOMOXETINE HCL (Strattera) 18 MG [id number] MILLIGRAM Orally DAILYBUPRENORPHINE HCL/NALOXONE HCL (Suboxone 8 MG-2 MG Sl Film) 1 EACH FILM1 MILLIGRAM SublinguallySUMATRIPTAN SUCCINATE (Imitrex*) 50 MG [id number] MILLIGRAM Orally DAILY NEEDED as needed for HeadacheOxcarbazepine (Trileptal) 150 MG [id number] MILLIGRAM Orally TWICE DAILYDischarge Activity: As tolerated, No liftingDischarge diet: RegularFollow-upFollow up with the mental health doctor [facility] spent by provider to complete discharge > 30 minutesDATE SIGNED: 12/05/19 Electronically SignedTIME SIGNED: 1912 DIOGENES BUENO MD Name Value Range Interpretation Code Description Data [place] rce(s) Supporting Document(s) ID Date Data Source [id number] 12/05/2019 09:46:00 AM EDT [address] [id number] NAME: BRUNA LEE#: [id number] PHYSICIAN: KATY KLEINOUNT #: [id number] ADM. DATE: 12/04/19PATIENT : 89 DISCH. DATE: [...] FUTUREDischarge InformationDISCHARGE INFORMATION* Thank you for choosing [facility] and allowing us toserve you* Our [...] Hour Crisis HOTLINE available: Call Reachout at [phone] SMOKING CESSATION* Smoking is dangerous to your health. It delays the healing process, andworks against your medications. Not smoking will improve your health* Our hospital participates with the Opt-to-Quit program. You will be contactedafter discharge by the [facility] Smoker's Quitline for support with tobaccocessation. You have the option once contacted to refuse this service.* You can also go online to www.[employer]. Free nicotine replacementsare available Attent ion* You should contact your follow up Physician as it is important that you lethim or her check you and report any new or remaining problems. If yourcondition worsens, follow up with your provider or visit our EmergencyDepartment. If you received pain medication, anxiety medications, musclerelaxants, or any medication that causes drowsiness, you cannot operatemachiCourseloady, power tools, or drive.END ENDDICT: 12/05/19945 Electronically SignedTRANS:12/05/19945 DIOGENES BUENO MDTRANS BY:DATE SIGNED:12/05/19TIME SIGNED: 946REPORT COPY TO: Name Value Range Interpretation Code Description Data [place] rce(s) Supporting Document(s) ID Date Data Source [id number] 12/06/2019 02:37:00 AM EDT [address] [id number] NAME: BRUNA LEE.#: [id number] PHYSICIAN: BEHZAD SOTO MD ADM. DATE: 12/04/19CONSULTING PHYSICIAN: PRERNA RIOS MD .#: ICUACCOUNT #: [id number] REPORTIDENTIFICATION: A 34-year-old female with mood disorder. This is a shortconsultation for a 34-year-old female who was unresponsive. The patient is inICU and at this point it is not clear the reason for an overdose.According to the records, the patient has a history of seizures, GERD, carpaltunnel, adjustment disorder, anxiety, depression, PTSD, and ADHD. Accordingto the records, the patient went to [facility] for an evaluation. Shehad an overdose. Was unconscious and at that point, according to the records,she stated that she injected bath salts in the morning, that is when shebecame unconscious and it is not clear who called [facility]. The patient has poor response to [...] the lastthing she remembers is being at [facility] so she is oriented to person, not [...] Dictated: 12/05/2019 09:24:19Date Transcribed: 12/06/2019 01:37:33JV/GBJob #: [id number]: 12/05/19 0924 Electronically SignedTRANS:12/06/19 0237 PRERNA RIOS MDTRANS BY:ADE SIGNED:12/09/19REPORT COPY TO: Name Value Range Interpretation Code Description Data [place] rce(s) Supporting Document(s) ID Date Data Source [id number] 12/05/2019 08:01:00 AM EDT [facility] Patient: COME, BRUNA Observation Repor t - [facility].VisitID: [id number] [place] [address] [phone], [place] Date/Time: 12/04/2019 15:46 Weight:68.4 [...] Euceda 12/04/2019 20:43) Addenda for COMEBRUNA VisitID: [id number] Date: 12/04/2019 12/05/2019 7:59Spoke to [facility] nurse Deborah who wanted to come to [place] to see patient. Advised Deborah that the patient was transferred to [facility]. (Electronically signed by Allyssa Paredes R.N.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 swelling and nausea, no other [...] Repair. 2 Clinical Report - Physicians/Mid Levels [facility] Emergency Department [address] [place] [address] Phone #: ext- [phone] 11/07/2019 00:19 Patient: BRUNA LEE Sex: F [...] (Reference) 3 Clinical Report - Physicians/Mid Levels [facility] Emergency Department [address] [place] [address] Phone #: ext- [phone] 11/07/2019 00:19 Patient: BRUNA LEE [facility]#: [id number] Sex: F : 1985 Age: 34y CBC [...] Male GFR Interprentation 20-49 yrs >60 mL/min Arzorh33-93 yrs >56 mL/min Normal 60- 69 yrs >49 mL/min Normal 70-79yrs>42 mL/min Normal 80 and above >35 mL/min Normal Female GFRInterpretation 20-39 yrs >60 mL/min Normal 40-49 yrs >58 mL/minNormal 50-59 yrs >51 mL/min Normal 60-69 yrs >45 mL/min Normal 4 Clinical Report - Physicians/Mid Levels [facility] Emergency Department [address] [place] [address] Phone #: ext- [phone] 11/07/2019 00:19 Patient: BRUNA LEE Sex: F : 1985 Age: 60p93-16 yrs >39 mL/min Normal 80 and above >32 mL/min NormalBeta-HCG, Qual Serum: (JENN: 11/07/2019 02:15) ( [facility] 11/07/2019 03:20) Final results Test Result Flag Units (Reference) HCG SERUM QUAL NEGATIVE (NORMAL: NEGAT HCG SERUM QL REENTER NEGATIVE (NORMAL: NEGAT { KIT LOT # [id number] ){ KIT EXP [id number] ){ PROCEDURAL CONTROL VALID)CPK: (JENN: 11/07/2019 02:15) ( [facility] 11/07/2019 03:15) Final results Test Result Flag Units (Reference) CPK 313 H U/L (30 - 170)Drug Screen-Urine: (JENN: 11/07/2019 02:00) ( [facility] 11/07/2019 03:15) Final results Test Result Flag [...] PRESUMPTIVE POSITIVE CONFIRMATION WILL BE PERFORMED AT [facility].Urinalysis: (JENN: 11/07/2019 02:00) ( [facility] 11/07/2019 02:28) Final results Test Result [...] Indicate 5 Clinical Report - Physicians/Mid Levels [facility] Emergency Department [address] [place] [address] Phone #: ext- [phone] 11/07/2019 00:19 Patient: [...] was requested by: Evonne Hagen Reference #: [id number] Others' Prescriptions Patient Name: Bruna LeeBirth Date: 1985 Address: [address] [place] [id number]: Female Rx Written Rx Dispensed Drug Quantity [...] table. 6 Clinical Report - Physicians/Mid Levels [facility] Emergency Department [address] [place] [address] Phone #: ext- [phone] 11/07/2019 00:19 [id number] Sex: F : 1985 Age: 34y 03:19 [...] Oral. 7 Clinical Report - Physicians/Mid Levels [facility] Emergency Department [address] [place] [address] Phone #: ext- [phone] 11/07/2019 00:19 Patient: [...] rce(s) Supporting Document(s) ID Date Data Source [id number] 11/07/2019 03:20:00 AM EDT [facility] Name Value Range Interpretation Code Description Data [place]mira rce(s) Supporting Document(s) HCG SERUM QUAL NEGATIVE NORMAL: NEGATIVE [facility] HCG SERUM QL REENTER NEGATIVE NORMAL: NEGATIVE [facility] { KIT LOT # [id number] ){ KIT EXP DATE 12-08-20 ){ PROCEDURAL CONTROL VALID ) ID Date Data Source [id number] 11/07/2019 03:15:00 AM EDT [facility] Name Value Range Interpretation Code Description Data [place]mira rce(s) Supporting Document(s) Creatine kinase [Enzymatic activity/volume] in Serum or Plasma 3 13 U/L 30 - 170 H [facility] ID Date Data Source [id number] 11/07/2019 03:14:00 AM EDT [facility] Name Value Range Interpretation Code Description Data [place]ira rce(s) Supporting Document(s) COMPREHENSIVE METABOLIC PANEL [facility] COMPREHENSIVE METABOLIC PANEL Sodium [Moles/volume] in Serum or Plasma 140 mEq/L 134 - 153 [facility] Potassium [Moles/volume] in Serum or Plasma 3.8 mEq/L 3.6 - 5.0 [facility] Chloride [Moles/volume] in Serum or Plasma 100 mEq/L 98 - 107 [facility] Carbon dioxide, total [Moles/volume] in Serum or Plasma 30 MEQ/L 22 - 30 [facility] Glucose [Mass/volume] in Serum or Plasma 98 MG/DL 65 - 110 [facility] BUN 14 MG/DL 7 - 21 [facility] al Creatinine [Mass/volume] in Serum or Plasma 0.7 MG/DL 0.7 - 1.5 [facility] BUN/CREAT 20 8 - 27 [facility] Protein [Mass/volume] in Serum or Plasma 5.9 G/DL 6.3 - 8.2 L [facility] Albumin [Mass/volume] in Serum or Plasma 3.6 G/DL 3.9 - 5.0 L [facility] Globulin [Mass/volume] in Serum by calculation 2.3 GM/DL 2.4 - 3.2 L [facility] A/G RATIO 1.6 0.8 - 2.0 [facility] Calcium [Mass/volume] in Serum or Plasma 9.2 MG/DL 8.4 - 10.2 [facility] Bilirubin.total [Mass/volume] in Serum or Plasma <0.7 MG/DL 0.2 - 1.3 [facility] Alkaline phosphatase [Enzymatic activity/volume] in Serum or Plasma 62 U/L 38 - 126 [facility] Aspartate aminotransferase [Enzymatic activity/volume] in Serum or Plasma 302 U/L 5 - 40 H [facility] Alanine aminotransferase [Enzymatic activity/volume] in Seru m or Plasma 125 U/L 7 - 56 H [facility] Anion gap 3 in Serum or Plasma 10.0 mmol/L 8.0 - 16.0 [facility] AGE [address] [facility] al NON-AA GFR >60 mL/min [facility] ital AFR AMER GFR >60 mL/min [facility] Male GFR In terprentation [...] >32 mL/min Normal ID Date Data Source [id number] 11/07/2019 02:27:00 AM EDT [facility] Name Value Range Interpretation Code Description Data [place]mira rce(s) Supporting Document(s) CBC W/AUTOMATED DIFF [facility] COMPLETE BLOOD COUNT Leukocytes [#/volume] in Blood by Automated count 8.3 10^3/uL 4.2 - 1 1.0 [facility] Erythrocytes [#/volume] in Blood by Automated count 3.87 10^6/uL 4. 20 - 5.40 L [facility] Hemoglobin [Mass/volume] in Blood 11.6 g/dL 12.0 - 16.0 L [facility] Hematocrit [Volume Fraction] of Blood by Automated count 36.0 % 3 7.0 - 47.0 L [facility] Erythrocyte mean corpuscular volume [Entitic volume] by Auto mated count 93.0 fL 81.0 - 101 [facility] Erythrocyte mean corpuscular hemoglobin [Entitic mass] by Automated count 30.0 pg 27.0 - 34.0 [facility] Erythrocyte mean corpuscular hemoglobin concentration [Mass/volume] by Automated count 32.2 g/dL 31.0 - 36.0 [facility] Erythrocyte distribution width [Ratio] by Automated count 13.3 % 11.5 - 14.5 [facility] Platelets [#/volume] in Blood by Automated count 271 10^3/uL 150 - 45 0 [facility] Platelet mean volume [Entitic volume] in Blood by Automated count 9.5 fL 7.4 - 10.4 [facility] Neutrophils/100 leukocytes in Blood by Automated count 82.6 % 37. 0 - 80.0 H [facility] Lymphocytes/100 leukocytes in Blood by Manual count 14.3 % 25.0 - 40.0 L [facility] Monocytes/100 leukocytes in Blood by Automated count 1.6 % 3.0 - 8.0 L [facility] Eosinophils/100 leukocytes in Blood by Automated count 0.8 % 0.0 - 7.0 [facility] Basophils/100 leukocytes in Blood by Automated count 0.2 % 0.0 - 2.5 [facility] %IG 0.5 % 0.0 - 0.[address] [facility] %NRBC 0.0 % 0.0 - 0.0 [facility] al Neutrophils [#/volume] in Blood by Automated count 6.85 10^3/uL 2.00 - 6.90 [facility] Lymphocytes [#/volume] in Blood by Automated count 1.19 10^3/uL 0.60 - 3.40 [facility] Monocytes [#/volume] in Blood by Automated count 0.13 10^3/uL 0.00 - 0.90 [facility] Eosinophils [#/volume] in Blood by Automated count 0.07 10^3/uL 0.00 - 0.70 [facility] Basophils [#/volume] in Blood by Automated count 0.02 10^3/uL 0.00 - 0.20 [facility] #IG 0.04 10^3/uL 0.00 - 0.[address] [facility] #NRBC 0.00 10^3/uL 0.00 - 0.00 [facility] ospital MANUAL DIFF NOT INDICATED [facility] RBC MORPH NOT INDICATED [facility] ID Date Data Source [id number] 11/07/2019 03:14:00 AM EDT [facility] Name Value Range Interpretation Code Description Data [place]mira rce(s) Supporting Document(s) DRUG SCREEN URINE [facility] URINE DRUG SCREEN Amphetamine [Presence] in Urine by Screen method PRESUMP POS ZAYNAB L: NEGATIVE [facility] BARBITURATES NEGATIVE NORMAL: NEGATIVE [facility] BENZO NEGATIVE NORMAL: NEGATIVE [facility] COCAINE NEGATIVE NORMAL: NEGATIVE [facility] Tetrahydrocannabinol [Presence] in Urine NEGATIVE NORMAL: NEGATIVE [facility] OPIATES NEGATIVE NORMAL: NEGATIVE [facility] Phencyclidine [Presence] in Urine by Screen method NEGATIVE NOR MAL: NEGATIVE [facility] \\BLDo\\URINE DRUG SCR EEN INTERPRETATION\\BLDx\\ THE CUTOFFF LEVELS FOR DETECTION ARE FOLLOWS: AMPHETAMINES 1000 ng/ml BARBITUARATES 200 ng/ml BENZODIAZEPINES 100 ng/ml THC 50 ng/ml PHENCYCLIDINE 25 ng/ml OPIATES 300 ng/ml COCAINE 300 ng/ml ALL POSITIVES ARE CONSIDERED PRESUMPTIVE POSITIVE CONFIRMATION WILL BE PERFORMED AT PHYSICIAN REQUEST. ID Date Data Source [id number] 11/07/2019 02:27:00 AM EDT [facility] Name Value Range Interpretation Code Description Data [place] rce(s) Supporting Document(s) [facility] SOURCE R [facility] COLOR yellow NORMAL: Yellow [facility] ospital CLARITY clear NORMAL: Clear [facility] Specific gravity of Urine by Test strip 1.020 1.001 - 1.030 [facility] pH 6 5 - 9 [facility] Glucose [Mass/volume] in Urine by Test strip NORM NORMAL: Negat [facility] Bilirubin.total [Presence] in Urine by Test strip NEG NORMAL: Negative [facility] Ketones [Presence] in Urine by Test strip NEG NORMAL: Negative [facility] Protein [Mass/volume] in Urine by Test strip NEG NORMAL: Negat [facility] Nitrite [Presence] in Urine by Test strip NEG NORMAL: Negative [facility] BLOOD NEG NORMAL: Negative [facility] Leukocyte esterase [Presence] in Urine by Test strip NEG ZAYNAB L: Negative [facility] Urobilinogen [Mass/volume] in Urine by Test strip 1 less kenna n 1.0 mg/dL [facility] MICROSCOPIC Not Indicate [facility] ID Date Data Source [id number] 10/30/2019 10:27:00 AM EDT [facility] Name Value Range Interpretation Code Description Data [place]mira rce(s) Supporting Document(s) BG FASTING 132 mg/dL 70-100 H [facility] TSH 0.526 microintl units/mL 0.358-3.740 N [facility] ID Date Data Source [id number] 10/30/2019 10:27:00 AM EDT [facility] Name Value Range Interpretation Code Description Data [place] rce(s) Supporting Document(s) HCT 37.6 % 36.0-47.0 N [facility] HGB 11.8 g/dL 12.0-15.5 L [facility] MCH 31.4 G/DL pg 32.0-36.5 L [facility] MCHC 29.9 PG % 27.0-33.0 N [facility] PLATELETS 209 10 10*3/mm3 150-450 N [facility] RBC 3.94 10 10*6/mm3 4.00-5.40 L [facility] RDW 12.6 % 11.5-14.5 N [facility] WBC TOTAL 4.5 4.0-10.0 N [facility] Procedure Social History Code Duration Value [...] Ex-drinker (finding) comp leted Ex- drinker (finding) [facility] Tobacco use and exposure 09/24/2020 12:00:00 AM EDT Never used co mpleted Never used [facility] Cigarettes smoked current (pack per day) - Reported 09/25/19 12:00:00 AM EDT UNK completed [facility]ital Smoking 09/24/2020 12:00:00 AM EDT Smoker, current status unkn own completed Smoker, current status unknown [facility] Alcohol intake 08/06/2020 12:00:00 AM EDT Ex-drinker (finding) comp leted Ex- drinker (finding) [facility] Smoking 07/22/2020 12:00:00 AM EDT Current Smoker completed Curre nt Smoker eCW1 ([facility]) Smoking 07/22/2020 12:00:00 AM EDT Current Smoker completed Curre nt Smoker eCW1 ([facility]) Smoking 07/22/2020 12:00:00 AM EDT Current Smoker completed Curre nt Smoker eCW1 ([facility]) Smoking 06/14/2020 12:00:00 AM EDT Current Smoker completed Curre nt Smoker eCW1 ([facility]) Smoking 06/14/2020 12:00:00 AM EDT Current Smoker completed Curre nt Smoker eCW1 ([facility]) Smoking 06/14/2020 12:00:00 AM EDT Current Smoker completed Curre nt Smoker eCW1 ([facility]) Smoking 06/14/2020 12:00:00 AM EDT Current Smoker completed Curre nt Smoker eCW1 ([facility]) Smoking 03/30/2020 12:00:00 AM EST Current Smoker completed Curre nt Smoker eCW1 ([facility]) Smoking 03/30/2020 12:00:00 AM EST Current Smoker completed Curre nt Smoker eCW1 ([facility]) Smoking 03/30/2020 12:00:00 AM EST Current Smoker completed Curre nt Smoker eCW1 ([facility]) Smoking 03/30/2020 12:00:00 AM EST Current Smoker completed Curre nt Smoker eCW1 ([facility]) Smoking 03/30/2020 12:00:00 AM EST Current Smoker completed Curre nt Smoker eCW1 ([facility]) Smoking 03/30/2020 12:00:00 AM EST Current Smoker completed Curre nt Smoker eCW1 ([facility]) Smoking 03/30/2020 12:00:00 AM EST Current Smoker completed Curre nt Smoker eCW1 ([facility]) Smoking 03/30/2020 12:00:00 AM EST Current Smoker completed Curre nt Smoker eCW1 ([facility]) Smoking 03/30/2020 12:00:00 AM EST Current Smoker completed Curre nt Smoker eCW1 ([facility]) Smoking 03/30/2020 12:00:00 AM EST Current Smoker completed Curre nt Smoker eCW1 ([facility]) Smoking 03/30/2020 12:00:00 AM EST Current Smoker completed Curre nt Smoker eCW1 ([facility]) Smoking 03/30/2020 12:00:00 AM EST Current Smoker completed Curre nt Smoker eCW1 ([facility]) Smoking 03/30/2020 12:00:00 AM EST Current Smoker completed Curre nt Smoker eCW1 ([facility]) Smoking 03/30/2020 12:00:00 AM EST Current Smoker completed Curre nt Smoker eCW1 ([facility]) Smoking 03/30/2020 12:00:00 AM EST Current Smoker completed Curre nt Smoker eCW1 ([facility]) Smoking 03/30/2020 12:00:00 AM EST Current Smoker completed Curre nt Smoker eCW1 ([facility]) Smoking 03/30/2020 12:00:00 AM EST Current Smoker completed Curre nt Smoker eCW1 ([facility]) Smoking 03/01/2020 12:00:00 AM EST Current Smoker completed Curre nt Smoker eCW1 ([facility]) Smoking 03/01/2020 12:00:00 AM EST Current Smoker completed Curre nt Smoker eCW1 ([facility]) Smoking 03/01/2020 12:00:00 AM EST Current Smoker completed Curre nt Smoker eCW1 ([facility]) Smoking 02/18/2020 12:00:00 AM EST Current Smoker completed Curre nt Smoker eCW1 ([facility]) Smoking 12/24/2019 12:00:00 AM EDT Current Smoker completed Curre nt Smoker eCW1 ([facility]) Smoking 12/24/2019 12:00:00 AM EDT Current Smoker completed Curre nt Smoker eCW1 ([facility]) Smoking 12/24/2019 12:00:00 AM EDT Current Smoker completed Curre nt Smoker eCW1 ([facility]) Smoking 12/24/2019 12:00:00 AM EDT Current Smoker completed Curre nt Smoker eCW1 ([facility]) Smoking 12/24/2019 12:00:00 AM EDT Current Smoker completed Curre nt Smoker eCW1 ([facility]) Smoking 12/24/2019 12:00:00 AM EDT Current Smoker completed Curre nt Smoker eCW1 ([facility]) Smoking 12/24/2019 12:00:00 AM EDT Current Smoker completed Curre nt Smoker eCW1 ([facility]) Smoking 10/31/2019 12:00:00 AM EDT Current Smoker completed Curre nt Smoker eCW1 ([facility]) Smoking 10/31/2019 12:00:00 AM EDT Current Smoker completed Curre nt Smoker eCW1 ([facility]) Smoking 10/31/2019 12:00:00 AM EDT Current Smoker completed Curre nt Smoker eCW1 ([facility]) Vital Signs ID Date Data Source UNK Name Value Range Interpretation Code Description Data Source(s) Diastolic blood pressure 56 mm[Hg] 56 mm[Hg] MATIAS ([facility]) Body height 61 [in_i] 61 [in_i] MATIAS ([facility]) Body mass index (BMI) [Ratio] 31.5 kg/m2 31.5 k g/m2 MATIAS ([facility]) Systolic blood pressure 83 mm[Hg] 83 mm[Hg] A THENA ([facility]) Body weight 2664 [oz_av] 2664 [oz_av] MATIAS ([facility]) Systolic blood pressure 116 mm[Hg] 116 mm[Hg] N extGen ([facility]) Body height 152.40 cm 152.40 cm NextGen ([facility]) Body weight 74.026 kg 74.026 kg NextGen ([facility]) Body mass index (BMI) [Ratio] 31.87 kg/m2 Overweight 31.87 kg/m2 NextGen ([facility]) Diastolic blood pressure 76 mm[Hg] 76 mm[Hg] NextGen ([facility]) Body height 60.0 [in_i] 60.0 [in_i] eCW1 ([facility]) Body weight 183.0 [lb_av] 183.0 [lb_av] eCW1 ([facility]) Body mass index (BMI) [Ratio] 35.74 kg/m2 35.74 kg/m2 eCW1 ([facility]) Heart rate 119 /min 119 /min eCW1 ([facility]) Respiratory rate 18 /min 18 /min eCW1 ([facility]) Oxygen saturation in Arterial blood by Pulse oximetry 98 % 98 % eCW1 ([facility]) Body height 60 [in_i] 60 [in_i] eCW1 ([facility]) Body weight 180.6 [lb_av] 180.6 [lb_av] eCW1 ([facility]) Body mass index (BMI) [Ratio] 35.27 kg/m2 35.27 kg/m2 eCW1 ([facility]) Heart rate 93 /min 93 /min eCW1 ([facility]) Respiratory rate 18 /min 18 /min eCW1 ([facility]) Oxygen saturation in Arterial blood by Pulse oximetry 99 % 99 % eCW1 ([facility]) Body height 60 [in_i] 60 [in_i] eCW1 ([facility]) Body weight 186.8 [lb_av] 186.8 [lb_av] eCW1 ([facility]) Body mass index (BMI) [Ratio] 36.48 kg/m2 36.48 kg/m2 eCW1 ([facility]) Heart rate 89 /min 89 /min eCW1 ([facility]) Respiratory rate 18 /min 18 /min eCW1 ([facility]) Oxygen saturation in Arterial blood by Pulse oximetry 97 % 97 % eCW1 ([facility]) Body height 60 [in_i] 60 [in_i] eCW1 ([facility]) Body weight 164.4 [lb_av] 164.4 [lb_av] eCW1 ([facility]) Body mass index (BMI) [Ratio] 32.10 kg/m2 32.10 kg/m2 eCW1 ([facility]) Body temperature 98.0 [degF] 98.0 [degF] eCW1 ( [facility]) Heart rate 86 /min 86 /min eCW1 ([facility]) Respiratory rate 18 /min 18 /min eCW1 ([facility]) Oxygen saturation in Arterial blood by Pulse oximetry 98 % 98 % eCW1 ([facility]) Body height 60 [in_i] 60 [in_i] eCW1 ([facility]) Body weight 157.2 [lb_av] 157.2 [lb_av] eCW1 ([facility]) Body mass index (BMI) [Ratio] 30.70 kg/m2 30.70 kg/m2 eCW1 ([facility]) Body temperature 98.7 [degF] 98.7 [degF] eCW1 ( [facility]) Heart rate 100 /min 100 /min eCW1 ([facility]) Respiratory rate 18 /min 18 /min eCW1 ([facility]) Oxygen saturation in Arterial blood by Pulse oximetry 99 % 99 % eCW1 ([facility]) ID Date Data Source [id number] 10/18/2020 09:45:12 AM EDT [facility] Name Value Range Interpretation Code Description Data Source(s) TRANSFER FROM [facility] ID Date Data Source [id number] 08/27/2020 04:17:02 PM EDT [facility] Name Value Range Interpretation Code Description Data Source(s) TRANSFER FROM [facility] ID Date Data Source [id number] 08/17/2020 03:58:41 PM EDT [facility] Name Value Range Interpretation Code Description Data Source(s) TRANSFER FROM [facility] ID Date Data Source [id number] 12/26/2019 01:56:00 PM EDT [facility] Name Value Range Interpretation Code Description Data Source(s) WEIGHT 72.3 kilos 72.3 kilos [facility] HEIGHT 152.4 centimeters 152.4 centimeters [facility] WEIGHT 75 kilos 75 kilos [facility] HEIGHT 152.4 centimeters 152.4 centimeters [facility] ID Date Data Source [id number] 12/10/2019 06:07:00 AM EDT [facility] Name Value Range Interpretation Code Description Data Source(s) WEIGHT 68 kilos 68 kilos [facility] HEIGHT 152.4 centimeters 152.4 centimeters [facility] WEIGHT 68.4 kilos 68.4 kilos [facility] HEIGHT 152.4 centimeters 152.4 centimeters [facility] ID Date Data Source [id number] 12/08/2019 01:43:00 PM EDT [facility] Name Value Range Interpretation Code Description Data Source(s) WEIGHT 75 kilos 75 kilos [facility] HEIGHT 152.4 centimeters 152.4 centimeters [facility] ID Date Data Source [id number] 12/08/2019 01:43:00 PM EDT [facility] Name Value Range Interpretation Code Description Data Source(s) WE[facility].[address] [facility] Patient Treatment Plan of Care Planned Activity Planned Date Details Description Data Source (s) Citalopram 10 MG Oral Tablet 09/30/2020 12:00:00 AM [facility] Levetiracetam 1000 MG Oral Tablet 09/29/2020 12:00:00 AM [facility] gabapentin 600 MG Oral Tablet 09/29/2020 12:00:00 AM [facility] Chlorpromazine hydrochloride 100 MG Oral Tablet 09/29/2020 12:00:00 AM [facility] Magnesium Hydroxide 80 MG/ML Oral Suspension 09/13/2020 08:49:03 AM [facility] sennosides, CORRECTION 8.6 MG Oral Tablet 09/13/2020 08:49:03 AM [facility] Docusate Sodium 100 MG Oral Capsule 09/13/2020 08:49:03 AM [facility] Bisacodyl 10 MG Rectal Suppository 09/13/2020 08:49:03 AM [facility] Buprenorphine 8 MG / Naloxone 2 MG Oral Strip 08/18/2020 12:00:00 A M [facility] Diphenhydramine Hydrochloride 25 MG Oral Capsule 08/17/2020 10:11:0 1 AM [facility] Asenapine 10 MG Sublingual Tablet 08/17/2020 12:00:00 AM [facility] benztropine mesylate 1 MG Oral Tablet 08/17/2020 12:00:00 AM [facility] gabapentin 300 MG Oral Capsule 08/17/2020 12:00:00 AM [facility] Diphenhydramine Hydrochloride 25 MG Oral Capsule 08/17/2020 12:00:0 0 AM [facility] Buprenorphine 8 MG / Naloxone 2 MG Sublingual Tablet 12:00:00 AM [facility] Clonidine Hydrochloride 0.2 MG Oral Tablet 08/17/2020 12:00:00 AM E DT [facility] Aluminum Hydroxide 40 MG/ML / Magnesium Hydroxide 40 MG/ML / Simethicone 4 MG/ML Oral Suspension 08/06/2020 07:39:14 PM [facility] Magnesium Hydroxide 80 MG/ML Oral Suspension 08/06/2020 07:39:11 PM [facility] gabapentin 600 MG Oral Tablet 07/17/2020 12:00:00 AM [facility] Doxepin Hydrochloride 25 MG Oral Capsule 03/09/2020 12:00:00 AM EST eCW1 ([facility]) Doxepin Hydrochloride 25 MG Oral Capsule 03/09/2020 12:00:00 AM EST eCW1 ([facility]) Doxepin Hydrochloride 25 MG Oral Capsule 03/09/2020 12:00:00 AM EST eCW1 ([facility]) Clonidine Hydrochloride 0.2 MG Oral Tablet 12/24/2019 12:00:00 AM E DT eCW1 ([facility]) Clonidine Hydrochloride 0.2 MG Oral Tablet 12/24/2019 12:00:00 AM E DT eCW1 ([facility]) Clonidine Hydrochloride 0.2 MG Oral Tablet 12/24/2019 12:00:00 AM E DT eCW1 ([facility]) Clonidine Hydrochloride 0.2 MG Oral Tablet 12/24/2019 12:00:00 AM E DT eCW1 ([facility]) Clonidine Hydrochloride 0.2 MG Oral Tablet 12/24/2019 12:00:00 AM E DT eCW1 ([facility]) Clonidine Hydrochloride 0.2 MG Oral Tablet 12/24/2019 12:00:00 AM E DT eCW1 ([facility]) Clonidine Hydrochloride 0.2 MG Oral Tablet 12/24/2019 12:00:00 AM E DT eCW1 ([facility]) lisdexamfetamine dimesylate 50 MG Oral Capsule [Vyvans e] 11/04/2019 12:00:00 AM EDT eCW1 ([facility]) Clonazepam 0.5 MG Oral Tablet 11/04/2019 12:00:00 AM EDT eCW1 ([facility]) Citalopram 20 MG Oral Tablet [Celexa] 11/04/2019 12:00:00 AM EDT eCW1 ([facility]) Sumatriptan 25 MG Oral Tablet MATIAS ([facility]) Buprenorphine 12 MG / Naloxone 3 MG Oral Strip [Suboxone] MALLARD ([facility]) benztropine mesylate 1 MG Oral Tablet [facility] Clonidine Hydrochloride 0.2 MG Oral Tablet [facility] Levetiracetam 1000 MG Oral Tablet [facility] Lurasidone Hydrochloride 40 MG Oral Tablet [facility] Trazodone Hydrochloride 50 MG Oral Tablet [facility] gabapentin 300 MG Oral Capsule [facility] 24 HR Nicotine 0.875 MG/HR Transdermal Patch [facility]
--- NOTE | 2020-12-19 13:26 | REP ---
INDICATION: 3rd n. palsy?. COMPARISON: Multiple previous CT examinations of the head, the most recent, 05/02/2020. TECHNIQUE: Contiguous 5 mm thick axial projection images were obtained of the head. 2D coronal reconstructions were performed. FINDINGS: There is no evidence of acute intracranial hemorrhage or infarction. There are no abnormal intracranial masses or mass effects. The skull base and calvarium are normal. The intraorbital and visualized extracranial soft tissues are unremarkable. IMPRESSION: Normal CT head without intravenous contrast. <Electronically signed by Jose Henson > 12/19/20 [id number]
--- NOTE | 2020-12-19 17:29 | REPVR ---
PROCEDURE INFORMATION: Exam: MRA Head Without Contrast; Arteriography Exam date and time: 12/19/2020 4:11 PM Age: 35 years old Clinical indication: Other: 3rd nerve palsy TECHNIQUE: Imaging protocol: Magnetic resonance angiography head without contrast. Exam focused on the arteries. COMPARISON: CT Head without contrast 12/19/2020 1:11 PM FINDINGS: ANTERIOR CIRCULATION: Right internal carotid artery: Intracranial segment is patent with no significant stenosis. No aneurysm. Right middle cerebral artery: No occlusion or significant stenosis. No aneurysm. Right anterior cerebral artery: No occlusion or significant stenosis. No aneurysm. Left internal carotid artery: Intracranial segment is patent with no significant stenosis. No aneurysm. Left middle cerebral artery: No occlusion or significant stenosis. No aneurysm. Left anterior cerebral artery: No occlusion or significant stenosis. No aneurysm. POSTERIOR CIRCULATION: Right vertebral artery: No occlusion or significant stenosis. No aneurysm. Left vertebral artery: No occlusion or significant stenosis. No aneurysm. Basilar artery: No occlusion or significant stenosis. No aneurysm. Right posterior cerebral artery: No occlusion or significant stenosis. No aneurysm. Left posterior cerebral artery: No occlusion or significant stenosis. No aneurysm. IMPRESSION: No proximal intracranial arterial stenosis or aneurysm identified. In particular, no evidence of a posterior communicating artery aneurysm. Electronically signed by: Linette Rashid On 12/19/2020 17:28:48 PM
--- NOTE | 2020-12-19 17:35 | REPVR ---
PROCEDURE INFORMATION: Exam: MR Head Without Contrast Exam date and time: 12/19/2020 4:11 PM Age: 35 years old Clinical indication: Other: 3rd nerve palsy TECHNIQUE: Imaging protocol: MR of the head without contrast. COMPARISON: CT Head without contrast 12/19/2020 1:11 PM FINDINGS: Brain: No acute infarct identified on the diffusion-weighted imaging. No parenchymal hemorrhage. No evidence of intracranial mass. The T2 weighted imaging demonstrates a few scattered foci of increased signal intensity in the frontal lobe subcortical white matter, nonspecific, potentially trace chronic small vessel ischemic change. Cerebral ventricles: Normal. No ventriculomegaly. Bones/joints: Unremarkable. Paranasal sinuses: Trace ethmoid mucosal thickening. Mastoid air cells: Normal as visualized. No mastoid effusion. Orbital cavity: Unremarkable. Soft tissues: Unremarkable. IMPRESSION: No acute intracranial abnormality. Electronically signed by: Linette Rashid On 12/19/2020 17:35:05 PM
[2020-12-19 18:07] VITALS: BP 98/58
== END 2020-12-19 18:09 | disposition home or self-care (01) ==
LOC: M ED 10:32
DX: H57.89 Other specified disorders of eye and adnexa (principal); F20.9 Schizophrenia, unspecified; B18.2 Chronic viral hepatitis C; F19.10 Other psychoactive substance abuse, uncomplicated; Z86.16 Personal history of COVID-19; Z88.2 Allergy status to sulfonamides; Z88.8 Allergy status to other drugs, medicaments and biological substances; Z79.899 Other long term (current) drug therapy; F17.200 Nicotine dependence, unspecified, uncomplicated
CPT/HCPCS: 70450; 70544; 70551; 99283; Q9967

== ENCOUNTER 2020-12-26 10:57 | Inpatient (IN) | payer MEDICAID, OTHER ==
[~2020-12-26] VITALS: Ht 154.9 cm; Wt 74.8 kg
--- OUTSIDE RECORDS SUMMARY | 2020-12-26 11:07 | CCD ---
Author Author [facility] Organization [facility] Address Unknown Phone Unavailable Care Team Providers Care Auto Bumper Mechanic Name Role Phone Yessi Ritchie MD Unavailable [...] Unavailable Ford, M Shira PA-C Unavailable Unavailable MARICHAO Gonzalez MD Unavailable Unavailable MARICHAO Gonzalez MD Unavailable Unavailable MARICHAO Gonzalez MD Unavailable Unavailable MARICHOA Gonzalez MD Unavailable Unavailable AMRICHAO Gonzalez MD Unavailable Unavailable Colten PARADA MD Unavailable [...] Chato OTERO MD Unavailable Unavailable DESJARLAIS, KAROLYN OBSTETRICS NURSE Unavailable Unavailable DESJARLAIS, KAROLYN OBSTETRICS NURSE Unavailable Unavailable DESJARLAIS, KAROLYN OBSTETRICS NURSE Unavailable Unavailable DESJARLAIS, KAROLYN OBSTETRICS NURSE Unavailable Unavailable DESJARLAIS, KAROLYN OBSTETRICS NURSE Unavailable Unavailable DESJARLAIS, KAROLYN OBSTETRICS NURSE Unavailable Unavailable DESJARLAIS, KAROLYN OBSTETRICS NURSE Unavailable Unavailable DESJARLAIS, KAROLYN OBSTETRICS NURSE Unavailable Unavailable DESJARLAIS, KAROLYN OBSTETRICS NURSE Unavailable Unavailable Lester, A Mavis CLOTH LAYER Unavailable Unavailable Lester, A Mavis CLOTH LAYER Unavailable Unavailable Lester, A Mavis CLOTH LAYER Unavailable Unavailable Lester, A Mavis CLOTH LAYER Unavailable Unavailable Lester, A Mavis CLOTH LAYER Unavailable Unavailable Lester, A Mavis CLOTH LAYER Unavailable Unavailable Lester, A Mavis CLOTH LAYER Unavailable Unavailable Lester, A Mavis CLOTH LAYER Unavailable Unavailable Lester, A Mavis CLOTH LAYER Unavailable Unavailable Lester, A Mavis CLOTH LAYER Unavailable Unavailable Lester, A Mavis CLOTH LAYER Unavailable Unavailable Lester, A Mavis CLOTH LAYER Unavailable Unavailable Lester, A Mavis CLOTH LAYER Unavailable Unavailable Lester, A Mavis CLOTH LAYER Unavailable Unavailable Lester, A Mavis CLOTH LAYER Unavailable Unavailable Lseter, A Mavis CLOTH LAYER Unavailable Unavailable Lester, A Mavis CLOTH LAYER Unavailable Unavailable Lester, A Mavis CLOTH LAYER Unavailable Unavailable Lester, A Mavis CLOTH LAYER Unavailable Unavailable Lester, A Mavis CLOTH LAYER Unavailable Unavailable Lester, A Mavis CLOTH LAYER Unavailable Unavailable Lester, A Mavis CLOTH LAYER Unavailable Unavailable Lester, A Mavis CLOTH LAYER Unavailable Unavailable Lester, A Mavis CLOTH LAYER Unavailable Unavailable Lester, A Mavis CLOTH LAYER Unavailable Unavailable Lester, A Mavis CLOTH LAYER Unavailable Unavailable Lester, A Mavis CLOTH LAYER Unavailable Unavailable Lester, A Mavis CLOTH LAYER Unavailable Unavailable Lester, A Mavis CLOTH LAYER Unavailable Unavailable Lester, A Mavis CLOTH LAYER Unavailable Unavailable Lester, A Mavis CLOTH LAYER Unavailable Unavailable Koir STEVEN MD Unavailable Unavailable Kori STEVEN MD [...] MIRLANDE FUNEZ MD Unavailable Unavailable DEE DEE SPIRITISM MD Unavailable Unavailable FUNEZ, SPIRITISM MD Unavailable Unavailable FUNEZ, SPIRITISM MD Unavailable Unavailable FUNEZ, SPIRITISM MD Unavailable Unavailable FUNEZ, SPIRITISM MD Unavailable Unavailable FUNEZ, SPIRITISM MD Unavailable Unavailable FUNEZ, SPIRITISM MD Unavailable Unavailable Ching, Reginah W Kassidy CLOTH LAYER-C Unavailable Unavailabl e Ching, Reginah W Kassidy CLOTH LAYER-C Unavailable Unavailabl e Ching, Reginah W Kassidy CLOTH LAYER-C Unavailable Unavailabl e Ching, Reginah W Kassidy CLOTH LAYER-C Unavailable Unavailabl e Ching, Reginah W Kassidy CLOTH LAYER-C Unavailable Unavailabl e Ching, Reginah W Kassidy CLOTH LAYER-C Unavailable Unavailabl e Ching, Reginah W Kassidy CLOTH LAYER-C Unavailable Unavailabl e Ching, Reginah W Kassidy CLOTH LAYER-C Unavailable Unavailabl e Ching, Reginah W Kassidy CLOTH LAYER-C Unavailable Unavailabl e Ching, Reginah W Kassidy CLOTH LAYER-C Unavailable Unavailabl e Ching, Reginah W Kassidy CLOTH LAYER-C Unavailable Unavailabl e Ching, Reginah W Kassidy CLOTH LAYER-C Unavailable Unavailabl e Ching, Reginah W Kassidy CLOTH LAYER-C Unavailable Unavailabl e Ching, Reginah W Kassidy CLOTH LAYER-C Unavailable Unavailabl e Ching, Reginah W Kassidy CLOTH LAYER-C Unavailable Unavailabl e Ching, Reginah W Kassidy CLOTH LAYER-C Unavailable Unavailabl e Ching, Reginah W Kassidy CLOTH LAYER-C Unavailable Unavailabl e Ching, Elijah Juareze CLOTH LAYER-C Unavailable Unavailabl e Ching, Elijah Juareze CLOTH LAYER-C Unavailable Unavailabl e Ching, Elijah W Kassidy CLOTH LAYER-C Unavailable Unavailabl e Ching, Elijah Ballyce CLOTH LAYER-C Unavailable Unavailabl e Ching, Elijah W Kassidy CLOTH LAYER-C Unavailable Unavailabl e Ching, Elijha W Kassidy CLOTH LAYER-C Unavailable Unavailabl e Ching, Reginalisa W Kassidy CLOTH LAYER-C Unavailable Unavailabl e Ching, Abhishekinalisa W Kassidy CLOTH LAYER-C Unavailable Unavailabl e Ching, Elijah W Kassidy CLOTH LAYER-C Unavailable Unavailabl e Ching, Elijah W Kassidy CLOTH LAYER-C Unavailable Unavailabl e Ching, Elijah Ballyce CLOTH LAYER-C Unavailable Unavailabl e Ching, Elijah W Kassidy CLOTH LAYER-C Unavailable Unavailabl e Ching, Elijah W Kassidy CLOTH LAYER-C Unavailable Unavailabl e Ching, Elijah Ballyce CLOTH LAYER-C Unavailable Unavailabl e Ching, Elijah W Kassidy CLOTH LAYER-C Unavailable Unavailabl e LESTER, MATIAS PA Unavailable [...] Unavailable Dwello PA PA, Nora Unavailable Unavailable Macario Edwarde Unavailable Brown, [place] Unavailable MARK, L GINGER PA Unavailable Unavailable [...] MD Unavailable Unavailable MAHESH RECINOS Unavailable Unavailable MAHESH RECINOS MD Unavailable Unavailable MAHESH RECINOS MD Unavailable Unavailable Mavis BatistaP CLOTH LAYER Unavailable Unavailable KATRIN BLUM MD Unavailable Unavailable [...] Unavailable Unavailable Hiral Liriano MD Unavailable Unavailable BLUM, KATRIN Unavailable Unavailable TYE, S GENO HERNANDEZ Unavailable Unavailable TYE, Jenny LORA MD Unavailable Unavailable TYE, S GENO HERNANDEZ Unavailable Unavailable TYE, S GENO HERNANDEZ Unavailable Unavailable TYE, S GENO HERNANDEZ Unavailable Unavailable TYE, S GENO HERNANDEZ Unavailable Unavailable TYE, S GENO HERNANDEZ Unavailable Unavailable TYE, S GENO HERNANDEZ Unavailable Unavailable TYE, S GENO HERNANDEZ Unavailable Unavailable TYE, S GENO HERNANDEZ Unavailable Unavailable TYE, S GENO HERNANDEZ Unavailable Unavailable TYE, S GENO HERNANDEZ Unavailable Unavailable TEY, S GENO HERNANDEZ Unavailable Unavailable TYE, S GENO HERNANDEZ Unavailable Unavailable TYE, S GENO HERNANDEZ Unavailable Unavailable TYE, S GENO HERNANDEZ Unavailable Unavailable TYE, S GENO HERNANDEZ Unavailable Unavailable TYE, S GENO HERNANDEZ Unavailable Unavailable TYE, S GENO HERNANDEZ Unavailable Unavailable TYE, S GENO HERNANDEZ Unavailable Unavailable TYE, S GENO HERNANDEZ Unavailable Unavailable Lino MOONEY MD Unavailable Unavailable [...] Unavailable Unavailable Lino MOONEY MD Unavailable Unavailable BROWN, L JANE Unavailable Unavailable ESCALERA, ANAHI OBSTETRICS NURSE Unavailable Unavailable ESCALERA, ANAHI OBSTETRICS NURSE Unavailable Unavailable ESCALERA, ANAHI OBSTETRICS NURSE Unavailable Unavailable BEHZAD SOTO MD Unavailable Unavailable HUMBERTO, QUE NATHAN PA-C [...] law may result in a fine or skilled nursing sentence or both. A general authorization for the release of medical or other information is NOT sufficient authorization for further disc losure. Allergies and Adverse Reactions Type Description Substance Reaction Status Data Source(s ) Propensity to adverse reactions ZIPRASIDONE ZIPRASIDONE [facility] Propensity to adverse reactions TRIMETHOPRIM Trimethoprim [facility] Propensity to adverse reactions SULFAMETHOXAZOLE Sulfamethoxazole [facility] Propensity to adverse reactions PENICILLINS Penicillin [facility] Propensity to adverse reactions HALOPERIDOL HALOPERIDOL [facility] Propensity to adverse reactions DEXTROAMPHETAMINE DEXTROAMPHETAMINE [facility] Drug allergy Drug allergy AMOXICLIIN SWELLING, HIVES [facility] Drug allergy olanzapine [facility] Drug allergy trimethoprim trimethoprim "BLISTERS IN MOUTH" [facility] Drug allergy sulfamethoxazole sulfamethoxazole "BLISTERS IN MOUTH" [facility] Drug allergy haloperidol haloperidol [facility] Drug allergy Sulfa (Sulfonamide Antibiotics) Sulfa (Sulfonami de Antibiotics) "BLISTERS IN MOUTH" [facility] Drug allergy Penicillins Penicillins SWELLING, HIVES [facility] Encounters Encounter Providers Location Date Indications Data Source(s ) Outpatient Attender: KAROLYN VAN OBSTETRICS NURSE 11/24/2020 03: 20:00 PM EDT [facility] Francesco Ritchie MD: [address] [place] [id number], Ph. Attender: Francesco Ritchie MD [facility] Medical 11/12/2020 12:00:00 AM EDT MATIAS ([facility]) OutpatientOFFICE VISIT, EST Attender: Nora MIKE PPNCNY [place] 11/05/2020 01:30:00 PM EDT - 11/05/2020 01:30:00 PM EDT Delusional disorders [facility] ([facility]) Delusional disorders Emergency Attender: EVONNE HAGENConsultant: STAFF NON 11/03/2020 11:35:00 AM EDT - 11/03/2020 03:27:00 PM EDT [facility] Patient discharged. [facility]patient [facility] 10/12/2020 12:00:00 AM EDT eCW1 ([facility]) Emergency Attender: Matt Ruby MDConsultant: STAFF NON 10/03/2020 06:06:00 PM EDT - 10/03/2020 07:27:00 PM EDT [facility] Patient discharged. Inpatient Attender: SPIRITISMELIDIA Elizabeth nder: MARY JO PARADA MDAdmitter: MARY JO PARADA MDReferrer: ANAHI ESCALERA NP [id number] 09/11/2020 03:40:00 PM EDT - 09/29/2020 03:01:00 PM EDT [facility] Patient discharged. Emergency Attender: ZAYNAB STEVEN MDConsultant: STAFF NON 09/09/2020 04:46:00 PM EDT - 09/09/2020 09:35:00 PM EDT [facility] ital Patient discharged. Outpatient Attender: KAROLYN VAN NP 09/03/2020 11: 00:00 AM EDT [facility] Outpatient [facility] 08/31/2020 12:00:00 AM EDT eCW1 ([facility]) Inpatient Attender: MIRLANDE Elizabeth nder: GENO GAMBLE MDAdmitter: SPIRITISMELIDIA FUNEZ MDReferrer: KARI OTERO MD [id number] 08/25/2020 03:33:00 PM EDT - 08/27/2020 12:52:00 PM EDT [facility] Patient discharged. Inpatient Attender: MIRLANDE Elizabeth nder: MARY JO PARADA MDAttender: Hiral Liriano MDAdmitter: MARY JO PARADA MDReferrer: MARY JO PARADA MD [id number] 08/06/2020 12:00:00 AM EDT - 08/17/2020 12:08:00 PM EDT Suicidal ideations [facility] Suicidal ideations Patient discharged. Outpatient [facility] 07/22/2020 12:00:00 AM EDT eCW1 ([facility]) Outpatient Attender: Jane Edward 07/15/2020 08:03:00 AM E DT [facility] Outpatient [facility] 07/15/2020 12:00:00 AM EDT eCW1 ([facility]) Outpatient [facility] 07/12/2020 12:00:00 AM EDT eCW1 ([facility]) Emergency Attender: EVONNE HAGENConsultant: STAFF NON 06/28/2020 07:41:00 PM EDT - 06/28/2020 09:08:00 PM EDT [facility] Patient discharged. Emergency Attender: EVONNE Pottsltant: STAFF NON 06/16/2020 04:22:00 PM EDT - 06/16/2020 08:01:00 PM EDT [facility] Patient discharged. Outpatient Attender: Jane Denson: JANE EDWARD 06/16/2020 09:02:00 AM EDT [facility] Outpatient [facility] 06/14/2020 12:00:00 AM EDT eCW1 ([facility]) Outpatient [facility] 06/11/2020 12:00:00 AM EDT eCW1 ([facility]) Outpatient Attender: Jane Denson: JANE EDWARD 05/26/2020 05:00:00 PM EDT [facility] Outpatient [facility] 05/26/2020 12:00:00 AM EDT eCW1 ([facility]) Outpatient [facility] 05/24/2020 12:00:00 AM EDT eCW1 ([facility]) Outpatient [facility] 05/24/2020 12:00:00 AM EDT eCW1 ([facility]) Outpatient [facility] 05/14/2020 12:00:00 AM EDT eCW1 ([facility]) Outpatient [facility] 05/04/2020 12:00:00 AM EST eCW1 ([facility]) Outpatient Attender: KAROLYN VAN NP 04/29/2020 01: 20:00 PM EST [facility]patient [facility] 04/28/2020 12:00:00 AM EST eCW1 ([facility]) Outpatient [facility] 04/28/2020 12:00:00 AM EST eCW1 ([facility]) Outpatient [facility] 04/23/2020 12:00:00 AM EST eCW1 ([facility]) Outpatient Attender: Jane Denson: JANE EDWARD 04/20/2020 03:00:00 PM [facility] Outpatient [facility] 04/19/2020 12:00:00 AM EST eCW1 ([facility]) Outpatient [facility] 04/16/2020 12:00:00 AM EST eCW1 ([facility]) Outpatient Attender: FAHAD MOONEY MD 04/15/2020 09:4 5:00 AM [facility] Outpatient [facility] 04/12/2020 12:00:00 AM EST eCW1 ([facility]) Outpatient [facility] 04/12/2020 12:00:00 AM EST eCW1 ([facility]) Outpatient [facility] 04/08/2020 12:00:00 AM EST eCW1 ([facility]) Outpatient [facility] 04/08/2020 12:00:00 AM EST eCW1 ([facility]) Outpatient [facility] 04/08/2020 12:00:00 AM EST eCW1 ([facility]) Outpatient [facility] 04/05/2020 12:00:00 AM EST eCW1 ([facility]) Outpatient Attender: NATHAN PAUL PA-C 03/30/2020 10:30:00 AM [facility] Outpatient Attender: Shira Youngblood PA-C 03/30/2020 10:18 :00 AM [facility] Outpatient [facility] 03/30/2020 12:00:00 AM EST eCW1 ([facility]) Outpatient Attender: Jane EdwardAttender: JANE EDWARD 03/23/2020 02:00:00 PM [facility] Outpatient Attender: Jane EdwardAttender: JANE EDWARD 03/17/2020 10:30:00 AM [facility] Outpatient Attender: Jane Denson: JANE EDWARD 03/11/2020 04:00:00 PM [facility] Outpatient Attender: FAHAD MOONEY MD 03/11/2020 06:3 0:00 AM [facility] Admission cancelled. Disregard status an d admitted date. Outpatient Attender: KAROLYN VAN NP 03/09/2020 03: 40:00 PM [facility]patient [facility] 03/03/2020 12:00:00 AM EST eCW1 ([facility]) Outpatient Attender: Shira Becerraferrer: Shira Youngblood PA-C EMERGENCY ROOM-LAB 03/01/2020 04:49:00 PM EST - 03/01/2020 04:49:00 PM [facility] Outpatient Attender: Shira Youngblood PA-C 03/01/2020 03:45 :00 PM [facility] Outpatient [facility] 03/01/2020 12:00:00 AM EST eCW1 ([facility]) Outpatient [facility] 03/01/2020 12:00:00 AM EST eCW1 ([facility]) Outpatient Attender: KAROLYN VAN NP 02/18/2020 02: 40:00 PM [facility] Outpatient Attender: Kassidy SERRANO 02/18/2020 10:00:0 0 AM [facility] Outpatient [facility] 02/18/2020 12:00:00 AM EST eCW1 ([facility]) Outpatient [facility] 02/10/2020 12:00:00 AM EST eCW1 ([facility]) Outpatient [facility] 02/03/2020 12:00:00 AM EST eCW1 ([facility]) Outpatient [facility] 01/14/2020 12:00:00 AM EST eCW1 ([facility]) Outpatient [facility] 01/06/2020 12:00:00 AM EST eCW1 ([facility]) Outpatient Attender: JOHNATHON PATEL 01/02/2020 10:06:00 A [facility] Outpatient [facility] 01/02/2020 12:00:00 AM EST eCW1 ([facility]) Outpatient Attender: Jane EdwardAttender: JANE EDWARD 01/01/2020 02:30:00 PM [facility] Outpatient Attender: KAROLYN VAN NP 12/24/2019 11: 00:00 AM [facility] Outpatient Attender: Shira Youngblood PA-C 12/24/2019 08:24 :00 AM [facility] Outpatient [facility] 12/24/2019 12:00:00 AM EDT eCW1 ([facility]) Outpatient Attender: Jane EdwardAttender: JANE EDWARD 12/23/2019 01:54:00 PM EDT [facility] Outpatient [facility] 12/23/2019 12:00:00 AM EDT eCW1 ([facility]) Outpatient Attender: Mavis DIEGO 12/12/2019 11:3 5:02 AM EDT [facility] Outpatient Attender: [place] EdwardAttender: JANE EDWARD 12/11/2019 03:00:00 PM EDT [facility]patient [facility] 12/09/2019 12:00:00 AM EDT eCW1 ([facility]) Outpatient Attender: Mavis DIEGO 12/05/2019 01:2 6:01 PM EDT [facility] Inpatient Attender: PRERNA RIOS MDAdmitter: PRERNA Alvarado MD ER-3RD 12/05/2019 10:08:00 AM EDT - 12/10/2019 01:07:00 PM EDT [facility] Patient discharged. Outpatient Attender: NATHAN PAUL PA-C 12/05/2019 09:03:00 AM EDT [facility] Admission cancelled. Disregard status an d admitted date. Inpatient Attender: BEHZAD SOTO MD Attender: BEHZAD SOTO MDAttender: DIOGENES BUENO MDAttender: DIOGENES BUENO MDAdmitter: BEHZAD SOTO MD ER-ICU 12/04/2019 11:06:00 PM EDT - 12/05/2019 10:03:00 AM EDT [facility] Patient discharged. Emergency Attender: GINGER Salaser: Melissa Youngblood PA-C EMERGENCY ROOM-ER 12/04/2019 04:21:00 PM EDT - 12/04/2019 08:40:00 PM EDT [facility] Patient discharged. Outpatient Attender: KAROLYN VAN NP 12/04/2019 03: 11:00 PM EDT [facility] Outpatient Attender: Mavis PATEL 11/29/2019 07:0 4:03 PM EDT [facility] Outpatient Attender: JOHNATHON PATEL 11/29/2019 07:04:01 P M EDT [facility] Outpatient Attender: Mavis DIEGO FP 11/24/2019 12:2 9:00 PM EDT [facility] Emergency Attender: EVONNE Lackeyant: STAFF CAMPOVERDE 11/07/2019 12:19:00 AM EDT - 11/07/2019 04:20:00 AM EDT [facility] Patient discharged. [facility]patient [facility] 11/07/2019 12:00:00 AM EDT eCW1 ([facility]) Outpatient Attender: Mavis DIEGO FP 11/04/2019 02:2 6:02 PM EDT [facility] Outpatient Attender: KAROLYN VAN NP [facility]04[facility]2019 [facility] Mavis DIEGO FP 11/02/2019 01:2 6:00 PM EDT [facility] Outpatient Attender: Mavis DIEGO 10/31/2019 06:0 2:00 PM EDT [facility] Outpatient Attender: JOHNATHON DIEGO 10/31/2019 06:01:59 P M EDT [facility] Outpatient Attender: Mavis DIEGO 10/31/2019 06:0 1:03 PM EDT [facility] Outpatient Attender: JOHNATHON PATEL 10/31/2019 06:01:01 P M EDT [facility] Outpatient Attender: Shira Youngblood PA-C 10/31/2019 09:06 :00 AM EDT [facility]patient [facility] 10/31/2019 12:00:00 AM EDT eCW1 ([facility]) Outpatient Attender: Jane EdwardAttender: JANE EDWARD 10/27/2019 11:00:00 AM [facility] Outpatient Attender: KAROLYN VAN NP 10/21/2019 03: 20:00 PM [facility] Outpatient Attender: KATRIN BLUM MDAttender: KATRIN BLUM 10/06/2019 09:37:00 AM [facility] Outpatient Attender: KATRIN BLUM MDAttender: KATRIN BLUM 08/04/2019 09:42:00 AM [facility] Outpatient Attender: KATRIN BLUM MDAttender: KATRIN BLUM 07/07/2019 03:30:00 PM [facility] Outpatient Attender: KATRIN BLUM MDAttender: KATRIN BLUM 04/21/2019 10:29:00 AM [facility] Outpatient Attender: MAHESH RECINOS MDAttender: MAHESH RECINOS 02/24/2019 01:46:00 PM [facility] Outpatient Attender: Jane EdwardAttender: JANE EDWARD 02/21/2019 10:00:00 AM [facility] Outpatient Attender: MAHESH RECINOS MDAttender: MAHESH RECINOS 02/10/2019 02:18:00 PM [facility] Inpatient Attender: CHAO GUERRA MDAttdoug harjinder: PRERNA RIOS MDAdmitter: PRERNA RIOS MD ER-3RD 12/23/2018 04:01:00 PM EDT - 12/26/2018 01:22:00 PM T [facility] Patient discharged. Inpatient Attender: ONDINA RAMIREZ MDAdmitter: ONDINA RAMIREZ MD E R-ICU 12/19/2018 05:26:00 PM EDT - 12/23/2018 03:42:00 PM EDT [facility] Patient discharged. Emergency Attender: MATIAS MIKE EMERGENCY ROOM-ER 03:51:00 PM EDT - 12/19/2018 04:47:00 PM [facility] Patient discharged. Medications Medication Brand [...] propionate 0.05 MG/ACTUAT Metered Dose [place] [facility] [place] 50 mcg/actuation FLUTICASONE PROPIONATE 11/02/2020 12:00:00 AM [...] A DAY NEEDED FOR EPS SOLD: 10/13/2020 [facility] Clonidine Hydrochloride 0.2 MG Oral [...] A DAY TAKE ONE CAPSULE BY MO UT TWICE A DAY SOLD: 10/07/2020 [facility] [...] active Take 1 tablet by mouth d [facility] Buprenorphine 8 MG / Naloxone 2 MG Oral Strip buprenorphine-naloxone (SUBOXONE) 8-2 MG per sublingual film 2 Film buprenorphine-naloxone (SUBOXONE) 8-2 MG per sublingual film 2 Film 09/29/2020 09:00:00 AM EDT 2 {film} Sublingual active 2 Film, Sublingual, Daily Standard, First dose (after last reorder) on Sun09/29/20 at 0900, For 7 days [facility] Medication administered onsite 1,000 mg [...] active Take 1 tablet by cali th Three times daily [facility] Levetiracetam 1000 MG Oral Tablet levETIRAcetam 1000 M G Oral Tablet (KEPPRA) levETIRAcetam 1000 MG Oral Tablet (KEPPRA) 09/29/2020 12:00:00 AM EDT 1000 mg Oral active Take 1 tablet by cali th Two Times Daily [facility] Chlorpromazine hydrochloride 100 MG Oral Tablet chlorproMAZINE HCl 100 MG Oral Tablet (THORAZINE) chlorproMAZINE HCl 100 MG Oral Tablet (THORAZINE) 05/2020 12:00:00 AM EDT 100 mg Oral active Take 1 tablet by mouth Two Times Daily [facility] 600 mg 09/29/2020 12:00:00 AM EDT tablet 30 TAKE ONE TABLET BY MOUTH THREE TIMES A DAY TAKE ONE TABLET BY MOUTH THREE TIMES A DAY SOLD: 10/13/2020 [facility] 600 mg 09/29/2020 12:00:00 AM EDT [...] TABLET BY MOUTH EVERY DAY SOLD: 09/30/2020 [facility] Chlorpromazine hydrochloride 100 MG Oral Tablet chlorproMAZINE (THORAZINE) tablet 100 mg chlorproMAZINE (THORAZINE) tablet 100 mg 09/27/2020 09 :00:00 PM EDT 100 mg Oral active 100 mg, Oral, 2 Times Daily, First dose (after last modification) on Sun09/27/20 at 2100, For 30 doses [facility] Medication administered onsite chlorproMAZINE (THORAZINE) injection 100 mg [id number] 09/27/2020 01:00:00 PM EDT 100 mg Intramuscular completed 100 mg, Intramuscular, Once, On Sun09/27/20 at 1300, For 1 dose
May be given over objection
[facility] Medication administered onsite chlorproMAZINE (THORAZINE) injection 100 mg [id number] 09/25/2020 02:00:00 PM EDT 100 mg Intramuscular completed 100 mg, Intramuscular, Once, On 09/25/20 at 1400, For 1 dose [facility] Medication administered onsite diphenhydrAMINE (BENADRYL) injection 50 mg [id number] 09/25/2020 02:00:00 PM EDT 50 mg Intramuscular completed 50 mg, Intramuscular, Once, On 09/25/20 at 1400, For 1 dose [facility] Medication administered onsite olanzapine 5 MG/ML Injectable Solution OLANZapine (ZYP REXA) injection 10 mg OLANZapine (ZYPREXA) injection 10 mg 09/25/2020 09:15:00 AM EDT 10 mg Intramuscular completed 10 mg, Intr amuscular, Once, On 09/25/20 at 0915, For 1 dose
Reconstitute 10 mg vial with 2.1 mL SWFI; resulting solution is ~5 mg/mL; Use within 1 hour following reconstitution.
[facility] Medication administered onsite Chlorpromazine hydrochloride 100 MG Oral Tablet chlorproMAZINE (THORAZINE) tablet 100 mg chlorproMAZINE (THORAZINE) tablet 100 mg 09/23/2020 10 :00:00 PM EDT 100 mg Oral aborted 100 mg, Oral, Nightly, First dose (after last modification) on Sun09/23/20 at 2200, For 28 doses [facility] Medication administered onsite gabapentin 300 MG Oral Capsule gabapentin (NEURONTIN) capsule 600 mg gabapentin (NEURONTIN) capsule 600 mg 09/23/2020 03:00:00 PM EDT 600 mg Oral active 600 mg, Oral, Three Times D aily Standard, Indications: substance use anxiety, First dose (after last modification) on Chari 09/23/20 at 1500, For 57 doses [facility] Medication administered onsite Chlorpromazine hydrochloride 50 MG Oral Tablet chlorproMAZINE (THORAZINE) tablet 50 mg chlorproMAZINE (THORAZINE) tablet 50 mg 09/21/2020 10:00:00 PM E DT 50 mg Oral aborted 50 mg, Ora l, Nightly, First dose on Sun09/21/20 at 2200, For 30 days [facility] Medication administered onsite Ibuprofen 400 MG Oral Tablet ibuprofen (MOTRIN) tablet 400 mg ibuprofen (MOTRIN) tablet 400 mg 09/21/2020 09:30:00 PM EDT 400 mg Oral comp leted 400 mg, Oral, Once, On Sun09/21/20 at 2130, For 1 dose
Take with food.
[facility] Medication administered onsite Chlorpromazine hydrochloride 25 MG Oral Tablet chlorproMAZINE (THORAZINE) tablet 25 mg chlorproMAZINE (THORAZINE) tablet 25 mg 09/21/2020 03:00:00 PM E DT 25 mg Oral aborted 25 mg, Ora l, 2 Times Daily, First dose (after last modification) on Sun09/21/20 at 1500, For 30 doses [facility] Medication administered onsite Citalopram 20 MG Oral Tablet citalopram (CELEXA) table t 10 mg citalopram (CELEXA) tablet 10 mg 09/19/2020 09:00:00 AM EDT 10 mg Oral active 10 mg, Oral, Daily Standard, First dose on Sun09/19/20 at 0900, For 30 days [facility] Medication administered onsite Chlorpromazine hydrochloride 25 MG Oral Tablet chlorproMAZINE (THORAZINE) tablet 25 mg chlorproMAZINE (THORAZINE) tablet 25 mg 09/15/2020 12:15:00 PM E DT 25 mg Oral aborted 25 mg, Ora l, Three Times Daily Standard, First dose on Sun09/15/20 at 1215, For 30 days [facility] Medication administered onsite Nicotine 2 MG Oral Lozenge nicotine (NICORETTE) lozeng e 2 mg nicotine (NICORETTE) lozenge 2 mg 09/15/2020 10:22:02 AM EDT 2 mg Mouth/Th roat active 2 mg, Mouth/Throat, Every 2 hours PRN, Smoking cessation, Starting on Sun09/15/20 at 1022, For 30 days
Should not be chewed or swallowed; allow to dissolve slowly (~20-30 minutes)
[facility] Medication administered onsite gabapentin 400 MG Oral Capsule gabapentin (NEURONTIN) capsule 400 mg gabapentin (NEURONTIN) capsule 400 mg 09/14/2020 05:00:00 PM EDT 400 mg Oral aborted 400 mg, Oral, Three Times D aily Standard, Indications: substance use anxiety, First dose (after last modification) on Sun09/14/20 at 1700, For 84 doses [facility] Medication administered onsite Acetaminophen 325 [...] mg from all sources in 24 hours.
[facility] Medication administered onsite 24 HR Nicotine 0.875 MG/HR Transdermal P atch nicotine (NICODERM CQ) 21 MG/24HR 1 patch nicotine (NICODERM CQ) 21 MG/24HR 1 patch 09/13/2020 09:00:00 AM EDT 1 {patch} Transdermal aborted 1 patch, Transdermal, Administer over 24 Hours, Daily Standard, First dose on Sun09/13/20 at 0900, For 30 days [facility] Medication administered onsite Bisacodyl 10 MG Rectal Suppository bisacodyl (DULCOLAX ) suppository 10 mg bisacodyl (DULCOLAX) suppository 10 mg 09/13/2020 08:49:03 AM EDT 10 mg Rectal active 10 mg, Rectal, Every 72 hours PRN, Constipation, Starting on Sun09/13/20 at 0849, For 30 days
Hold if patient has had BM within the past 2 days.
[facility] Medication administered onsite Docusate Sodium 100 MG Oral Capsule docusate sodium (C OLACE) capsule 100 mg docusate sodium (COLACE) capsule 100 mg 09/13/2020 08:49:03 AM EDT 100 mg Oral active 100 mg, Oral, 2 Times Daily PRN, Constipation, Starting on Sun09/13/20 at 0849, For 30 days [facility] Medication administered onsite sennosides, [facility] 8.6 MG Oral Tablet senna tablet 2 tablet sen na tablet 2 tablet 09/13/2020 08:49:03 AM EDT 2 {tbl} Oral active 2 tablet, Oral, Nightly PRN, Constipation, Starting on Sun09/13/20 at 0849, For 30 days [facility] Medication administered onsite Magnesium Hydroxide [...] creatinine > 2 notify provider before administering.
[facility] Medication administered onsite Asenapine 5 MG Sublingual Tablet Asenapine Maleate (SA PHRIS) SL tablet 5 mg Asenapine Maleate (SAPHRIS) SL tablet 5 mg 09/12/2020 09:00:00 PM EDT 5 mg Sublingual aborted 5 mg, Sublingu al, 2 Times Daily, First dose on 09/12/20 at 2100, For 30 days [facility] Medication administered onsite gabapentin 300 MG Oral Capsule gabapentin (NEURONTIN) capsule 300 mg gabapentin (NEURONTIN) capsule 300 mg 09/12/2020 05:00:00 PM EDT 300 mg Oral aborted 300 mg, Oral, Three Times D aily Standard, Indications: substance use anxiety, First dose on 09/12/20 at 1700, For 30 days [facility] Medication administered onsite Trazodone Hydrochloride 50 MG Oral Tablet trazodone (D ESYREL) tablet 50 mg trazodone (DESYREL) tablet 50 mg 09/12/2020 12:11:29 PM EDT 50 mg Oral active 50 mg, Oral, Nightly PRN, Sleep, Starting on 09/12/20 at 1211, For 30 days [facility] Medication administered onsite Hydroxyzine Hydrochloride 50 MG Oral Tablet hydrOXYzin e (ATARAX) tablet 50 mg hydrOXYzine (ATARAX) tablet 50 mg 09/12/2020 12:10:58 PM EDT 50 mg Oral active 50 mg, Oral, Every 6 hours PRN, Itching, Starting on 09/12/20 at 1210, For 700 hours [facility] Medication administered onsite Clonidine Hydrochloride 0.1 MG Oral Tablet cloNIDine ( CATAPRES) tablet 0.1 mg cloNIDine (CATAPRES) tablet 0.1 mg 09/12/2020 12:10:43 PM EDT 0.1 mg Oral active Attention Deficit Hyperactivity Disorder 0.1 mg, Oral, Three Times Daily-PRN, anxiety, Indications: Attention Deficit Hyperactivity Disorder, Starting on 09/12/20 at 1210, For 30 days [facility] Attention Deficit Hyperactivity Disorder Medication administered onsite Levetiracetam 500 MG Oral Tablet levetiracetam (KEPPRA ) tablet 1,000 mg levetiracetam (KEPPRA) tablet 1,000 mg 09/11/2020 09:00:00 PM EDT 1000 mg Oral active 1,000 mg, Oral , 2 Times Daily, First dose on 09/11/20 at 2100, For 81 doses [facility] Medication administered onsite Buprenorphine 8 MG / Naloxone 2 MG Oral Strip buprenorphine-naloxone (SUBOXONE) 8-2 MG per sublingual film 2 Film buprenorphine-naloxone (SUBOXONE) 8-2 MG per sublingual film 2 Film 09/11/2020 08:45:00 PM EDT 2 {film} Sublingual completed 2 Film, Sublingual, Daily Standard, First dose (after last modification) on 09/11/20 at 2045, For 18 doses [facility] Medication administered onsite benztropine mesylate 1 MG Oral Tablet benztropine (COG ENTIN) tablet 1 mg benztropine (COGENTIN) tablet 1 mg 09/11/2020 04:38:18 PM EDT 1 mg Oral active 1 mg, Oral, 2 Times Daily PRN, Tremor, Starting on 09/11/20 at 1638, For 30 days [facility] Medication administered onsite 100,000 unit/mL [...] Place 2 Film under the tongue daily [facility] Diphenhydramine Hydrochloride 25 MG Oral Capsule diphenhydrAMINE (BENADRYL) capsule 25 mg diphenhydrAMINE (BENADRYL) capsule 25 mg 08/17/2020 10 :11:01 AM EDT 25 mg Oral active 25 mg, O ral, Nightly PRN, Sleep, Starting on Sun08/17/20 at 1011, For 30 days [facility] Medication administered onsite Buprenorphine 8 MG / Naloxone 2 MG Subli ngual Tablet Buprenorphine HCl-Naloxone HCl 8-2 MG Sublingual Tablet Sublingual (SUBOXONE) Buprenorphine HCl-Naloxone HCl 8-2 MG Sublingual Tablet Sublingual (SUBOXONE) 08/17/2020 12:00:00 AM EDT 1 {tbl} Sublingual active Place 1 t ablet under the tongue Two Times Daily Use supply at home, Max Daily Dose: 2 tablets [facility] Asenapine 10 MG Sublingual Tablet Asenap ine Maleate 10 MG Sublingual Tablet Sublingual (SAPHRIS) Asenapine Maleate 10 MG Sublingual Table t Sublingual (SAPHRIS) 08/17/2020 12:00:00 AM EDT 10 mg Sublingual abor keven Place 1 tablet under the tongue Two Times Daily [facility] 10 mg 08/17/2020 12:00:00 AM [...] 1 tablet by mouth daily as needed [facility] gabapentin 300 MG Oral Capsule Gabapentin 300 MG Oral Capsule (NEURONTIN) Gabapentin 300 MG Oral Capsule (NEURONTIN) 08/17/2020 12:00:00 AM EDT 600 mg Oral aborted Take 2 capsules by m outh Three times daily [facility] benztropine mesylate 1 MG Oral Tablet Be nztropine Mesylate 1 MG Oral Tablet (COGENTIN) Benztropine Mesylate 1 MG Oral Tablet (COGENTIN) 08/17 12:00:00 AM EDT 1 mg Oral active Take 1 t ablet by mouth Two times daily as needed [facility] 25 mg 08/17/2020 12:00:00 AM EDT capsule 15 TAKE 1 CAPSULE BY MOUTH NIGHTLY NEEDED FOR SLEEP FOR UP TO 10 DAYS TAKE 1 CAPSULE BY MOUTH NIGHTLY NEEDE D FOR SLEEP FOR UP TO 10 DAYS SOLD: 08/17/2020 [facility] Diphenhydramine Hydrochloride 25 MG Oral Capsule diphenhydrAMINE HCl 25 MG Oral Capsule (BENADRYL) diphenhydrAMINE HCl 25 MG Oral Capsule (BENADRYL) 07/28 12:00:00 AM EDT 25 mg Oral active Take 1 capsule by mouth nightly as needed for Sleep for up to 10 days [facility] 1 mg 08/17/2020 12:00:00 AM EDT tablet 30 TAKE ONE TABLET BY MOUTH TWICE A DAY NEEDED TAKE ONE TABLET BY MOUTH TWICE A DAY NEEDED SOLD: 08/17/2020 [facility] 300 mg 08/17/2020 12:00:00 AM EDT capsule 84 TAKE TWO CAPSULES BY MOUTH THREE TIMES A DAY TAKE TWO CAPSULES BY MOUTH THREE TIMES A DAY SOLD: [facility] [employer] Clonidine Hydrochloride 0.2 MG Oral Tablet CLONIDINE HCL 08/17/2020 12:00:00 AM EDT tablet 15 TAKE ONE TABLET BY MOUTH CORWIN DAY NEEDED TAKE ONE TABLET BY MOUTH EVERY DAY NEEDED SOLD: 08/17/2020 [facility] [employer] benztropine mesylate 1 MG Oral Tablet benztropine (COG ENTIN) tablet 1 mg benztropine (COGENTIN) tablet 1 mg 08/16/2020 09:00:00 PM EDT 1 mg Oral active 1 mg, Oral, 2 Times Daily, First dose (after last modification) on Sun08/16/20 at 2100, For 60 doses [facility] Medication administered onsite Asenapine 10 MG Sublingual Tablet Asenapine Maleate (S APHRIS) SL tablet 10 mg Asenapine Maleate (SAPHRIS) SL tablet 10 mg 08/11/2020 08:00:00 PM EDT 10 mg Sublingual active 10 mg, Subling ual, 2 Times Daily, First dose (after last modification) on Sun08/11/20 at 2000, For 53 doses [facility] Medication administered onsite olanzapine 10 MG Disintegrating Oral Tab let OLANZapine zydis (ZYPREXA) disintegrating tablet 10 mg OLANZapine zydis (ZYPREXA) disintegratin g tablet 10 mg 08/11/2020 03:15:00 PM EDT 10 mg Oral completed 10 mg, Oral, Once, On Sun08/11/20 at 1515, For 1 dose [facility] Medication administered onsite 50 mg 08/09/2020 12:00:00 AM EDT tablet 7 TAKE ONE TABLET BY MOUTH EVERY DAY NEEDED FOR MIGRAINE TAKE ONE TABLET BY MOUTH EVERY DAY NE EDED FOR MIGRAINE SOLD: 08/17/2020 [facility] Asenapine 5 MG Sublingual Tablet Asenapine Maleate (SA PHRIS) SL tablet 5 mg Asenapine Maleate (SAPHRIS) SL tablet 5 mg 08/08/2020 06:30:00 PM EDT 5 mg Sublingual aborted 5 mg, Sublingu al, 2 Times Daily, First dose (after last modification) on Sun08/08/20 at 1830, For 30 days [facility] Medication administered onsite Lurasidone Hydrochloride 40 MG Oral Tablet lurasidone HCl (LATUDA) tablet 20 mg lurasidone HCl (LATUDA) tablet 20 mg 08/07/2020 09:00:00 AM EDT 20 mg Oral aborted 20 mg, Oral, Burt ly Standard, First dose on Sun08/07/20 at 0900, For 30 days
Administer with food.
[facility] Medication administered onsite 1,000 mg 08/07/2020 12:00:00 AM EDT tablet 14 TAKE ONE TABLET BY MOUTH TWICE A DAY FOR SEIZURES TAKE ONE TABLET BY MOUTH TWICE A DAY FOR SEIZURES SOLD : 08/17/2020 [facility] Levetiracetam 500 MG Oral Tablet levETIRAcetam (KEPPRA ) tablet 1,000 mg levETIRAcetam (KEPPRA) tablet 1,000 mg 08/06/2020 09:00:00 PM EDT 1000 mg Oral active 1,000 mg, Oral , 2 Times Daily, First dose on Sun08/06/20 at 2100, For 30 days [facility] Medication administered onsite gabapentin 300 MG Oral Capsule gabapentin (NEURONTIN) capsule 600 mg gabapentin (NEURONTIN) capsule 600 mg 08/06/2020 09:00:00 PM EDT 600 mg Oral active Neuropathic Pain 600 mg, Oral, Three Times D aily Standard, Indications: Neuropathic Pain, First dose on Sun08/06/20 at 2100, For 30 days [facility] Neuropathic Pain Medication administered onsite Buprenorphine 8 MG / Naloxone 2 MG Subli ngual Tablet buprenorphine-naloxone (SUBOXONE) 8-2 MG per sublingual tablet 1 tablet buprenorphine-naloxone (SUBOXONE) 8-2 MG per sublingual tablet 1 tablet 08/06/2020 09:00:00 PM EDT Sublingual active 1 tablet (8 mg of buprenorphine), Sublingual, 2 Times Daily, First dose on Sun08/06/20 at 2100, For 26 doses [facility] Medication administered onsite Hydroxyzine Hydrochloride 50 MG Oral Tablet hydrOXYzin e (ATARAX) tablet 50 mg hydrOXYzine (ATARAX) tablet 50 mg 08/06/2020 07:39:32 PM EDT 50 mg Oral active 50 mg, Oral, Every 6 hours PRN, Anxiety, Starting on Sun08/06/20 at 1939, For 30 days [facility] Medication administered onsite Trazodone Hydrochloride 50 MG Oral Tablet trazodone (D ESYREL) tablet 50 mg trazodone (DESYREL) tablet 50 mg 08/06/2020 07:39:25 PM EDT 50 mg Oral active 50 mg, Oral, Nightly PRN, Sleep, Starting on Sun08/06/20 at 1939, For 30 days [facility] Medication administered onsite Aluminum Hydroxide [...] on Sun08/06/20 at 1939, For 30 days [facility] Medication administered onsite Magnesium Hydroxide [...] creatinine > 2 notify provider before administering.
[facility] Medication administered onsite Acetaminophen 325 [...] mg from all sources in 24 hours.
[facility] Medication administered onsite Clonidine Hydrochloride 0.2 MG Oral Tablet cloNIDine ( CATAPRES) tablet 0.2 mg cloNIDine (CATAPRES) tablet 0.2 mg 08/06/2020 07:36:40 PM EDT 0.2 mg Oral active 0.2 mg, Oral, Three Times Daily-PRN, anxiety, Indications: anxiety, Starting on Sun08/06/20 at 1936, For 30 days [facility] Medication administered onsite benztropine mesylate 1 MG Oral Tablet benztropine (COG ENTIN) tablet 1 mg benztropine (COGENTIN) tablet 1 mg 08/06/2020 07:36:33 PM EDT 1 mg Oral aborted 1 mg, Oral, 2 Times Daily PRN, Tremor, Starting on Sun08/06/20 at 1936, For 30 days [facility] Medication administered onsite 20 mg [...] 600 mg by mouth Three times daily [facility] 250 mg/5 mL 07/01/2020 12:00:00 [...] MOUTH EVERY DAY FOR 14 DAYS SOLD: 021 [facility] 8-2 mg 06/24/2020 12:00:00 AM [...] {capsule_at_bedtime} active Doxepin HCl 25 MG eCW1 ([facility] Doxepin Hydrochloride 25 MG Oral Capsule Doxepin HCl 25 MG D oxepin HCl 25 MG 03/09/2020 12:00:00 AM EST 1.0 {capsule_at_bedtime} active Doxepin HCl 25 MG eCW1 [place] Doxepin Hydrochloride 25 MG Oral Capsule Doxepin HCl 25 MG D oxepin HCl 25 MG 03/09/2020 12:00:00 AM EST 1.0 {capsule_at_bedtime} active Doxepin HCl 25 MG eCW1 [place] Doxepin Hydrochloride 25 MG Oral Capsule Doxepin HCl 25 MG D oxepin HCl 25 MG 03/09/2020 12:00:00 AM EST 1.0 {capsule_at_bedtime} active Doxepin HCl 25 MG eCW1 [place] Doxepin Hydrochloride 25 MG Oral Capsule Doxepin HCl 25 MG D oxepin HCl 25 MG 03/09/2020 12:00:00 AM EST 1.0 {capsule_at_bedtime} active Doxepin HCl 25 MG eCW1 ([facility] Doxepin Hydrochloride 25 MG Oral Capsule Doxepin HCl 25 MG D oxepin HCl 25 MG 03/09/2020 12:00:00 AM EST 1.0 {capsule_at_bedtime} active Doxepin HCl 25 MG eCW1 ([facility] [place] Doxepin Hydrochloride 25 MG Oral Capsule Doxepin HCl 25 MG D oxepin HCl 25 MG 03/09/2020 12:00:00 AM EST 1.0 {capsule_at_bedtime} active Doxepin HCl 25 MG eCW1 ([facility] [place]) Doxepin Hydrochloride 25 MG Oral Capsule Doxepin HCl 25 MG D oxepin HCl 25 MG 03/09/2020 12:00:00 AM EST 1.0 {capsule_at_bedtime} active Doxepin HCl 25 MG eCW1 ([facility] [place]) Doxepin Hydrochloride 25 MG Oral Capsule Doxepin HCl 25 MG D oxepin HCl 25 MG 03/09/2020 12:00:00 AM EST 1.0 {capsule_at_bedtime} active Doxepin HCl 25 MG eCW1 ([facility] [place]) Doxepin Hydrochloride 25 MG Oral Capsule Doxepin HCl 25 MG D oxepin HCl 25 MG 03/09/2020 12:00:00 AM EST 1.0 {capsule_at_bedtime} active Doxepin HCl 25 MG eCW1 ([facility] [place]) Doxepin Hydrochloride 25 MG Oral Capsule Doxepin HCl 25 MG D oxepin HCl 25 MG 03/09/2020 12:00:00 AM EST 1.0 {capsule_at_bedtime} active Doxepin HCl 25 MG eCW1 ([facility] [place]) Doxepin Hydrochloride 25 MG Oral Capsule Doxepin HCl 25 MG D oxepin HCl 25 MG 03/09/2020 12:00:00 AM EST 1.0 {capsule_at_bedtime} active Doxepin HCl 25 MG eCW1 ([facility] [place]) Doxepin Hydrochloride 25 MG Oral Capsule Doxepin HCl 25 MG D oxepin HCl 25 MG 03/09/2020 12:00:00 AM EST 1.0 {capsule_at_bedtime} active Doxepin HCl 25 MG eCW1 ([facility] [place]) Doxepin Hydrochloride 25 MG Oral Capsule Doxepin HCl 25 MG D oxepin HCl 25 MG 03/09/2020 12:00:00 AM EST 1.0 {capsule_at_bedtime} active Doxepin HCl 25 MG eCW1 ([facility] [place]) Doxepin Hydrochloride 25 MG Oral Capsule Doxepin HCl 25 MG D oxepin HCl 25 MG 03/09/2020 12:00:00 AM EST 1.0 {capsule_at_bedtime} active Doxepin HCl 25 MG eCW1 ([facility] [place]) Doxepin Hydrochloride 25 MG Oral Capsule Doxepin HCl 25 MG D oxepin HCl 25 MG 03/09/2020 12:00:00 AM EST 1.0 {capsule_at_bedtime} [facility] Dox[facility] Hydrochloride 25 MG Oral Capsule Doxepin HCl 25 MG D oxepin HCl 25 MG 03/09/2020 12:00:00 AM EST 1.0 {capsule_at_bedtime} active Doxepin HCl 25 MG [facility]CW[facility] Doxepin Hydrochloride 25 MG Oral Capsule Doxepin HCl 25 MG D oxepin HCl 25 MG 03/09/2020 12:00:00 AM EST 1.0 {capsule_at_bedtime} active Doxepin HCl 25 MG [facility]CW1 [facility] Doxepin Hydrochloride 25 MG Oral Capsule Doxepin HCl 25 MG D oxepin HCl 25 MG 03/09/2020 12:00:00 AM EST 1.0 {capsule_at_bedtime} active Doxepin HCl 25 MG eCW1 ([facility] [place]) Doxepin Hydrochloride 25 MG Oral Capsule Doxepin HCl 25 MG D oxepin HCl 25 MG 03/09/2020 12:00:00 AM EST 1.0 {capsule_at_bedtime} active Doxepin HCl 25 MG [facility]CW1 [facility] Doxepin Hydrochloride 25 MG Oral Capsule Doxepin HCl 25 MG D oxepin HCl 25 MG 03/09/2020 12:00:00 AM EST 1.0 {capsule_at_bedtime} active Doxepin HCl 25 MG eCW1 ([facility] [place]) Doxepin Hydrochloride 25 MG Oral Capsule Doxepin HCl 25 MG D oxepin HCl 25 MG 03/09/2020 12:00:00 AM EST 1.0 {capsule_at_bedtime} active Doxepin HCl 25 MG eCW1 ([facility] [place]) Doxepin Hydrochloride 25 MG Oral Capsule Doxepin HCl 25 MG D oxepin HCl 25 MG 03/09/2020 12:00:00 AM EST 1.0 {capsule_at_bedtime} active Doxepin HCl 25 MG eCW1 ([facility] [place]) Doxepin Hydrochloride 25 MG Oral Capsule Doxepin HCl 25 MG D oxepin HCl 25 MG 03/09/2020 12:00:00 AM EST 1.0 {capsule_at_bedtime} active Doxepin HCl 25 MG eCW1 ([facility] [place]) 8-2 mg 03/03/2020 12:00:00 AM [...] activ e cloNIDine HCl 0.2 MG eCW1 ([facility]) Clonidine Hydrochloride 0.2 MG Oral Tablet Clonidine H Cl 0.2 MG Clonidine HCl 0.2 MG 12/24/2019 12:00:00 AM EDT 1.0 {tablet} activ e Clonidine HCl 0.2 MG eCW1 ([facility]) Clonidine Hydrochloride 0.2 MG Oral Tablet Clonidine H Cl 0.2 MG Clonidine HCl 0.2 MG 12/24/2019 12:00:00 AM EDT 1.0 {tablet} activ e Clonidine HCl 0.2 MG eCW1 ([facility]) Clonidine Hydrochloride 0.2 MG Oral Tablet Clonidine H Cl 0.2 MG Clonidine HCl 0.2 MG 12/24/2019 12:00:00 AM EDT 1.0 {tablet} activ e Clonidine HCl 0.2 MG eCW1 ([facility]) Clonidine Hydrochloride 0.2 MG Oral Tablet Clonidine H Cl 0.2 MG Clonidine HCl 0.2 MG 12/24/2019 12:00:00 AM EDT 1.0 {tablet} activ e Clonidine HCl 0.2 MG eCW1 ([facility]) Clonidine Hydrochloride 0.2 MG Oral Tablet Clonidine H Cl 0.2 MG Clonidine HCl 0.2 MG 12/24/2019 12:00:00 AM EDT 1.0 {tablet} activ e Clonidine HCl 0.2 MG eCW1 ([facility]) Clonidine Hydrochloride 0.2 MG Oral Tablet Clonidine H Cl 0.2 MG Clonidine HCl 0.2 MG 12/24/2019 12:00:00 AM EDT 1.0 {tablet} activ e Clonidine HCl 0.2 MG eCW1 ([facility]) Clonidine Hydrochloride 0.2 MG Oral Tablet Clonidine H Cl 0.2 MG Clonidine HCl 0.2 MG 12/24/2019 12:00:00 AM EDT 1.0 {tablet} suspe nded Clonidine HCl 0.2 MG eCW1 ([facility]) Clonidine Hydrochloride 0.2 MG Oral Tablet Clonidine H Cl 0.2 MG Clonidine HCl 0.2 MG 12/24/2019 12:00:00 AM EDT 1.0 {tablet} activ e Clonidine HCl 0.2 MG eCW1 ([facility]) Clonidine Hydrochloride 0.2 MG Oral Tablet Clonidine H Cl 0.2 MG Clonidine HCl 0.2 MG 12/24/2019 12:00:00 AM EDT 1.0 {tablet} activ e Clonidine HCl 0.2 MG eCW1 ([facility]) Clonidine Hydrochloride 0.2 MG Oral Tablet Clonidine H Cl 0.2 MG Clonidine HCl 0.2 MG 12/24/2019 12:00:00 AM EDT 1.0 {tablet} suspe nded Clonidine HCl 0.2 MG eCW1 ([facility]) Clonidine Hydrochloride 0.2 MG Oral Tablet Clonidine H Cl 0.2 MG Clonidine HCl 0.2 MG 12/24/2019 12:00:00 AM EDT 1.0 {tablet} activ e Clonidine HCl 0.2 MG eCW1 ([facility]) Clonidine Hydrochloride 0.2 MG Oral Tablet Clonidine H Cl 0.2 MG Clonidine HCl 0.2 MG 12/24/2019 12:00:00 AM EDT 1.0 {tablet} activ e Clonidine HCl 0.2 MG eCW1 ([facility]) Clonidine Hydrochloride 0.2 MG Oral Tablet Clonidine H Cl 0.2 MG Clonidine HCl 0.2 MG 12/24/2019 12:00:00 AM EDT 1.0 {tablet} activ e Clonidine HCl 0.2 MG eCW1 ([facility]) Clonidine Hydrochloride 0.2 MG Oral Tablet Clonidine H Cl 0.2 MG Clonidine HCl 0.2 MG 12/24/2019 12:00:00 AM EDT 1.0 {tablet} activ e Clonidine HCl 0.2 MG eCW1 ([facility]) Clonidine Hydrochloride 0.2 MG Oral Tablet Clonidine H Cl 0.2 MG Clonidine HCl 0.2 MG 12/24/2019 12:00:00 AM EDT 1.0 {tablet} activ e Clonidine HCl 0.2 MG eCW1 ([facility]) Clonidine Hydrochloride 0.2 MG Oral Tablet Clonidine H Cl 0.2 MG Clonidine HCl 0.2 MG 12/24/2019 12:00:00 AM EDT 1.0 {tablet} activ e Clonidine HCl 0.2 MG eCW1 ([facility]) Clonidine Hydrochloride 0.2 MG Oral Tablet Clonidine H Cl 0.2 MG Clonidine HCl 0.2 MG 12/24/2019 12:00:00 AM EDT 1.0 {tablet} activ e Clonidine HCl 0.2 MG eCW1 ([facility]) Clonidine Hydrochloride 0.2 MG Oral Tablet Clonidine H Cl 0.2 MG Clonidine HCl 0.2 MG 12/24/2019 12:00:00 AM EDT 1.0 {tablet} activ e Clonidine HCl 0.2 MG eCW1 ([facility]) Clonidine Hydrochloride 0.2 MG Oral Tablet Clonidine H Cl 0.2 MG Clonidine HCl 0.2 MG 12/24/2019 12:00:00 AM EDT 1.0 {tablet} activ e Clonidine HCl 0.2 MG eCW1 ([facility] jimena) Clonidine Hydrochloride 0.2 MG Oral Tablet Clonidine H Cl 0.2 MG Clonidine HCl 0.2 MG 12/24/2019 12:00:00 AM EDT 1.0 {tablet} activ e Clonidine HCl 0.2 MG eCW1 ([facility] jimena) Clonidine Hydrochloride 0.2 MG Oral Tablet Clonidine H Cl 0.2 MG Clonidine HCl 0.2 MG 12/24/2019 12:00:00 AM EDT 1.0 {tablet} activ e Clonidine HCl 0.2 MG eCW1 ([facility] jimena) Clonidine Hydrochloride 0.2 MG Oral Tablet Clonidine H Cl 0.2 MG Clonidine HCl 0.2 MG 12/24/2019 12:00:00 AM EDT 1.0 {tablet} activ e Clonidine HCl 0.2 MG eCW1 ([facility] jimena) Clonidine Hydrochloride 0.2 MG Oral Tablet Clonidine H Cl 0.2 MG Clonidine HCl 0.2 MG 12/24/2019 12:00:00 AM EDT 1.0 {tablet} suspe nded Clonidine HCl 0.2 MG eCW1 ([facility] jimena) Clonidine Hydrochloride 0.2 MG Oral Tablet Clonidine H Cl 0.2 MG Clonidine HCl 0.2 MG 12/24/2019 12:00:00 AM EDT 1.0 {tablet} activ e Clonidine HCl 0.2 MG eCW1 ([facility] jimena) Clonidine Hydrochloride 0.2 MG Oral Tablet Clonidine H Cl 0.2 MG Clonidine HCl 0.2 MG 12/24/2019 12:00:00 AM EDT 1.0 {tablet} activ e Clonidine HCl 0.2 MG eCW1 ([facility] jimena) Clonidine Hydrochloride 0.2 MG Oral Tablet Clonidine H Cl 0.2 MG Clonidine HCl 0.2 MG 12/24/2019 12:00:00 AM EDT 1.0 {tablet} activ e Clonidine HCl 0.2 MG eCW1 ([facility] jimena) Clonidine Hydrochloride 0.2 MG Oral Tablet Clonidine H Cl 0.2 MG Clonidine HCl 0.2 MG 12/24/2019 12:00:00 AM EDT 1.0 {tablet} activ e Clonidine HCl 0.2 MG eCW1 ([facility] jimena) Clonidine Hydrochloride 0.2 MG Oral Tablet Clonidine H Cl 0.2 MG Clonidine HCl 0.2 MG 12/24/2019 12:00:00 AM EDT 1.0 {tablet} activ e Clonidine HCl 0.2 MG eCW1 ([facility] jimena) Clonidine Hydrochloride 0.2 MG Oral Tablet Clonidine H Cl 0.2 MG Clonidine HCl 0.2 MG 12/24/2019 12:00:00 AM EDT 1.0 {tablet} activ e Clonidine HCl 0.2 MG eCW1 ([facility] jimena) Clonidine Hydrochloride 0.2 MG Oral Tablet Clonidine H Cl 0.2 MG Clonidine HCl 0.2 MG 12/24/2019 12:00:00 AM EDT 1.0 {tablet} activ e Clonidine HCl 0.2 MG eCW1 ([facility] jimena) Clonidine Hydrochloride 0.2 MG Oral Tablet Clonidine H Cl 0.2 MG Clonidine HCl 0.2 MG 12/24/2019 12:00:00 AM EDT 1.0 {tablet} activ e Clonidine HCl 0.2 MG eCW1 ([facility] jimena) Clonidine Hydrochloride 0.2 MG Oral Tablet Clonidine H Cl 0.2 MG Clonidine HCl 0.2 MG 12/24/2019 12:00:00 AM EDT 1.0 {tablet} activ e Clonidine HCl 0.2 MG eCW1 ([facility] jimena) Clonidine Hydrochloride 0.2 MG Oral Tablet cloNIDine H Cl 0.2 MG cloNIDine HCl 0.2 MG 12/24/2019 12:00:00 AM EDT 1.0 {tablet} activ e cloNIDine HCl 0.2 MG eCW1 ([facility] jimena) Clonidine Hydrochloride 0.2 MG Oral Tablet Clonidine H Cl 0.2 MG Clonidine HCl 0.2 MG 12/24/2019 12:00:00 AM EDT 1.0 {tablet} activ e Clonidine HCl 0.2 MG eCW1 ([facility] jimena) 300 mg 12/13/2019 [...] 1.0 {tablet_at_bedtime} active Clonazepam 0.5 MG eCW1 ([facility]) lisdexamfetamine dimesylate 50 MG Oral Capsule [Vyvans e] Vyvanse 50 MG Vyvanse 50 MG 11/04/2019 12:00:00 AM EDT 1.0 {capsule_in_the_morning} active Vyvanse 50 MG eCW1 ([facility]) Citalopram 20 MG Oral Tablet [Celexa] Celexa 20 MG Celexa 20 MG 11/04/2019 12:00:00 AM EDT 1.0 {tablet} active Ce elise 20 MG eCW1 ([facility]) Citalopram 20 MG Oral Tablet [Celexa] Celexa 20 MG Celexa 20 MG 11/04/2019 12:00:00 AM EDT 1.0 {tablet} active Ce elise 20 MG eCW1 ([facility]) lisdexamfetamine dimesylate 50 MG Oral Capsule [Vyvans e] Vyvanse 50 MG Vyvanse 50 MG 11/04/2019 12:00:00 AM EDT 1.0 {capsule_in_the_morning} active Vyvanse 50 MG eCW1 ([facility]) Clonazepam 0.5 MG Oral Tablet Clonazepam 0.5 MG 11/04/2019 12:00:00 AM EDT 1.0 {tablet_at_bedtime} active Clonazepam 0.5 MG eCW1 ([facility]) 2 mg 11/04/2019 12:00:00 AM EDT tablet [...] {tablet} active Ce elise 20 MG eCW1 ([facility]) 75 mg 11/02/2019 12:00:00 AM [...] MAXIMUM DAILY DOSE = 2 SOLD: 10/28/2019 [facility] Buprenorphine 12 MG / Naloxone 3 MG Oral Strip [Suboxone] Suboxone 12 mg-[address] ONE FILM UNDER THE TONGUE EVERY DAY MAXIMUM DAILY DOSE 1 Suboxone 12 mg-3 [address] PLAC E ONE FILM UNDER THE TONGUE EVERY DAY MAXIMUM DAILY DOSE 1 completed buprenorphine 12 MG / naloxone 3 MG Sublingual Film [Suboxone] MATIAS ([facility]) Sumatriptan 25 MG Oral Tablet sumatripta n 25 mg tablet TAKE ONE TABLET BY MOUTH TWICE A DAY NEEDED FOR MIGRAINE sumatriptan 25 mg tablet TAKE ONE TABLET BY MOUTH TWICE A DAY NEEDED FOR MIGRAINE completed sumatriptan 25 MG Oral Tablet MATIAS ([facility]) Levetiracetam 1000 MG Oral Tablet levetiracetam (KEPPR A) 1000 MG tablet levetiracetam (KEPPRA) 1000 MG tablet 1000 mg Oral aborted Take 1,000 mg by mouth Two Times Daily [facility] Trazodone Hydrochloride 50 MG Oral Table t traZODone HCl 50 MG Oral Tablet (DESYREL) traZODone HCl 50 MG Oral Tablet (DESYREL) 50 mg Oral aborted Take 50 mg by mouth nightly [facility] Lurasidone Hydrochloride 40 MG Oral Tabl et Lurasidone HCl 40 MG Oral Tablet (LATUDA) Lurasidone HCl 40 MG Oral Tablet (LATUDA) 20 mg Oral aborted Take 20 mg by mouth daily [facility] gabapentin 300 MG Oral Capsule Gabapentin 300 MG Oral Capsule (NEURONTIN) Gabapentin 300 MG Oral Capsule (NEURONTIN) 600 mg Oral aborted Take 600 mg by mouth Three times daily [facility] 24 HR Nicotine 0.875 MG/HR Transdermal P atch Nicotine 21 MG/24HR Transdermal Patch 24 Hour (NICODERM CQ) Nicotine 21 MG/24HR Transdermal Patch 24 Hour (NICODERM CQ) 1 {patch} Transdermal aborted Place 1 patch onto the skin every 24 (twenty-four) hours [facility] Clonidine Hydrochloride 0.2 MG Oral Tabl et cloNIDine HCl 0.2 MG Oral Tablet (CATAPRES) cloNIDine HCl 0.2 MG Oral Tablet (CATAPRES) 0.2 mg O ral aborted Take 0.2 mg by mouth Three times daily as needed [facility] benztropine mesylate 1 MG Oral Tablet Be nztropine Mesylate 1 MG Oral Tablet (COGENTIN) Benztropine Mesylate 1 MG Oral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 JEJdKLZrNXNgJD5RGmHeBHCxBJOgBlcqAKUiKNDcfn7MAFOuWKQ4IXm5KgMeAHMuWCNpWIarMRWqMSD9 RSv9ODWpMJXoZS0REeLeILAyBPJbNuqfZUTpXCIbsj 0OKOBlIUE5IvPoUsJzSRSpIZBzBNmiARPsOOM2KGO0YLMzSNFsVY1UFfMtKRTyLPx0LxUmMNSqUGDspm 6TENMjRCD7VIP3KmYjXFQdBVQsDIpiCACvHII4YQgbTYKiXCQxHF6MRrNlFAIoSTahDYUmBNOnBCJxbj 3BPJMsLDF3NHPoBGTeZCWaXHLoPCqfZVXiNNMqDgZ0 NEZmSZKfNV2RQwSsFTNpNCP6FFScERGmWCFfgv5LJZVaJSM8KJlmXHJrUQJrWMXxDCgzNVEvFQQhZLU7 AGCcTQXwFI7JOtNvKACdAmGmADKnYRRjTSTdpw6PELMrKVR3AuH0PESoFQCmXIMvAPsdGORtLOKcIjSm BRUiOYZcNB0QAjRaILVvQiu9TVFiXMJcEWRjzg4NFZ IoWBB7JrmiVmBrVREsKTPoZDlxJOPxANY1OLW8ESSlRPXpRL4UYkEcKPNkDxhuWxOkBCZxRHPzxv1BBD DwVRX0XTXeVhFkSKKySEQjIYkpWPUaRRR5IqP0YQXcVJReOO9ZAgIsAASmGnd0LvUoKAFtOARtfh7ELH HcRTM7SHAtYnTqSFZbVHBmIHqfADUrTGF9GQugQWHx ZEWgSC1NMrSzTMTvVxCcUPXcDATdGPXoau6PIMUzKYF8DLT4BsCcBULqPWSdNEshYWNaPQowKoVxFLNv GMJeCZ0JIhWcGRfqZJFITlo8WCxqJ3r9IXH7EO0LH0Jha4YxNAedSKXBHEfaBG6ijxHuJSShWt3JP1hA LzuoMfMgRFJ2QdIpZBShCNPdGgE6AdTnPPV4IXnxLK niYo1lYAY7MhS5JJa9QRJ3AdR5GiMeFQhgLJBlZWy8DBO2MMTqExJzDG7ZPx0RBpE3CBS4iBDgDm0XQu G0XaPFMrLiCE0UMEw= ID Date Data Source [id number] 09/23/2020 10:10:03 PM EDT [facility] Name Value Range Interpretation Code Description Data [place] rce(s) Supporting Document(s) [facility] SKLFAx0mEiBKKkQct8FfDqSdXPMuGW3yllu0N7T7kPJpD9PvwBRfa9loV5EhG7RqKZDsKJDMSN7MgESk jb2 [file] 9aFYmteRGQ5Ew1+MfotU/SdIaLJ0ZXF+rra+5pgQ8Jq920ms4wA+PvHvMupv/yC7L4N4nf+vx5pVU+OBSTETRICS NURSE g7gi/nxiVPbgVL+A84B3F20+Mcx2BX+nJxrb6klwX2r9FmQcdxuWldjQ77RkN2gJxC+2oGAhsAl2nD/H lEbdi4y92fKF0++cdvAGSpb+xsMmbL4X/fXTU+ji3u 1T5+I2y/QFF1vXM0MCTEhK8oASJSOXY2OqQ5uSDqsCBnaEuh3FKbNFqCoXybzGxovPJLKhxsCTDFla7V QLwhr70wIfJf52zRlCGk0AP9UcxV08MqPxWHKZaqtIHnBB18rSDlNUOLqECh+Ssy2ffswp5BXIMgF0Tq dPfAMlrsSVTCVTSSgJJUvJUrK/HaIKtx7QtGAnb1sp PRooEZ/D4Rr70Buh4M9BQ4d7ZwpzrBTM5xv7lOdrXoH/Cd4zhyDOjWVoE5dPqK5rcvw+nboU/9/X2TXd chvX+V6/1k92dnjiylHsfHzKXJnGQ9iqF1+DMvSwJHvV3PWgUjl9qus98QRkCF0hdtL7gjrlP0LoFTFq 8NE7+HWQzVJER5r2WH8zBSew7nZcYCaGawXXI2HWZM knPgaZFSda/MsIamjqZbeX4DSlbn3AshOnZ8AejHrVEsFP3hQs61XJcq7Cyi9y+kZj7woc4zXflcv2vw 9q0wGZsOc8F3Mt33diXpp7fuAXiB0x2libvA2aFEUojXzNJMJLwSE7riSKAgAlnZwLx49LpBKGwtBPb8 lfdj1LG27aGgSFjkUJGhWHiP4fWXwBZ04HQFiTTLbV cMvwqV8gmCx0WdgrgRlr8ZUzgNndDvoYHVRzUX+b4vBb8rNf0jmp2dL8fYixdF/ylxA9J4jUfhWu1rbi 7wRda5jxzNbIrwS96Wta0sPLIMp9yUYDGKyjDEmJxbbEcLpgP6HXIj1JM1up+CSqF0csk5Y2c6FIQsk5 bKKWSLyNJQYe0rGFTH5/axsJGGSUDHSktYUEDDJGxs [file] C26pwE7tzKwRgC/KIqe/LdfErdbm2Kk8Tgv5wfG5CK+HVAC OPERATIONS TECHNICIAN/G5u3XZLBkRM3AqedHv0Acz9U6Q3jB85Sho gHfgHbgDd+AD+AA+gU/cVVnNhhZMM2W9XAvvwQpcmC7ydOusvwq75kIFK3f62mD3TjrIj+AnvtKKr+oY +AQ+mAolBKrDs10q2JUtiImjFw0HI+KC6JXn376bA6 8yvqpNoM/7VzO+ph9vC65kw/Zg3rDoPeI42n5BV+/ythobjoOv+Kp+n/TCWLAi9kAJV1GjxCyCQxcRga 317y32npol7VKWg886L1DPil0w5sdRbLRsdC2jqXdx+Kzrvsqrc2+C+zVLb8Pec1PKzId+0kpkdcdXWq iu8zkIg45y7W7O5bbzY8jwiTp86OnFw4x4iXI4q/GO r7S2Sr/bC674iHk2tjXB+R1fve4/q8wR83pAHEe9LBOy6kIU/qfVo46lagvIX8Gg6EybVTC03+O3FV9J THo76cIoco49eg8Y9cWke5pkYS/jr9vqu2IsPZh2qg5gU+adUqadTK7iS8QtO+ofPC4oPHaJ7sPVwsit 98P9QhI09lRJOzFNqQv3IioMvZjuIu5IDJyG2kKcr1 ksjzs6k6l+aqK/mg58AB/AUd6J/cxps8pgjbJ1LnP/YrPYfm5i2O5M+qtCurJ1eeImZ5k+nnpbtZ1Q1a z7skMrN3s+ri33HC1MblFVj17ajDfPqKAifER5LbkqMBrMpd84K3qhgc4kyZMjXNsHp+AD+AA+gU/gAT gLWzc0eqUr0yqVO4HXozCw5Ffvav7lwN8HG91z7IwS 7sAd+AA+gE/wc4lO95uTazqkq0d2nh4IZ+AC/Hm4BkPrvfd2+gOW9CUtQ2VWmwh1+bgE0FDsR6KYDaGu 2mvqC6K8RpJV0QSueA/5FSD078/4Ku+w1Hmpj242U66VS6V2yb3eN97pXt+66fx4YE+N57koWlfHoJ+y hkYW23x66OMeR+pzQ33O+GofP++KHgc47HvUK7ZW3i A34Gi/FV/lcQfegZ/+ln4All161joz6lsR82mPy6FG+UabfXKk9up8DTsnIiuVT+FDvIP8A78fw98l5e 8nZk9fI+74PcrbT/+8FrxsX/V5/NZP/7xWu+z/OsrrKK+beG2wGiixjd9Ps13+Vnq4ijbnlQ5V38HrCt uJ94Wyj/N1PF/C64L8V5h2R9n1RO1V2v6Gn2F5O428 [file] lRMhhInkJGPMCvYtKXIKNWZHZ3W= ID Date Data Source [id number] 09/18/2020 04:35:04 PM EDT [facility] Name Value Range Interpretation Code Description Data [place] rce(s) Supporting Document(s) Color of Urine [facility] Clarity of Urine [facility] Specific gravity of Urine by Refractometry automated 1.004 1.003 -1.030 [facility] pH of Urine by Automated test strip 8.0 5.0-8.0 [facility] Protein [Mass/volume] in Urine by Automated test strip Neg [facility] Glucose [Mass/volume] in Urine by Automated test strip Neg [facility] Ketones [Mass/volume] in Urine by Automated test strip Neg [facility] Bilirubin.total [Presence] in Urine by Automated test strip Negative [facility] Hemoglobin [Presence] in Urine by Automated test strip Neg [facility] Leukocyte esterase [Presence] in Urine by Automated test strip Negative [facility] Nitrite [Presence] in Urine by Automated test strip Neg[facility] Leukocytes [#/area] in Urine sediment by Automated count 1 /HPF 0 -5 [facility] Erythrocytes [#/area] in Urine sediment by Automated count 0-3 [facility] Epithelial cells.squamous [#/area] in Urine sediment by Auto mated count 1 /HPF None A [facility] ID Date Data Source [id number] 09/17/2020 10:52:19 AM EDT [facility] Name Value Range Interpretation Code Description Data [place] rce(s) Supporting Document(s) Calcidiol [Mass/volume] in Serum or Plasma 39 ng/mL >30 [facility] ID Date Data Source [id number] 09/17/2020 07:52:17 AM EDT [facility] Name Value Range Interpretation Code Description Data [place] rce(s) Supporting Document(s) Leukocytes [#/volume] in Blood by Automated count 4.6 10*3/uL 4-10 [facility] Erythrocytes [#/volume] in Blood by Automated count 4.27 10*6/uL 4.1- 5.3 [facility] Hemoglobin [Mass/volume] in Blood 12.5 g/dL 11.5-15.5 [facility] Hematocrit [Volume Fraction] of Blood by Automated count 37.5 % 3 6-45 [facility] Erythrocyte mean corpuscular volume [Entitic volume] by Auto mated count 87.8 fL 80-96 [facility] Erythrocyte mean corpuscular hemoglobin [Entitic mass] by Automated count 29.2 pg 27-33 [facility] Erythrocyte mean corpuscular hemoglobin concentration [Mass/volume] by Automated count 33.3 g[facility] width [Ratio] by Automated count 14.0 % 11.5-14.5 [facility] Platelets [#/volume] in Blood by Automated count 261 10*3/uL 150-400 [facility] Differential cell count method - Blood [facility] Neutrophils/100 leukocytes in Blood by Automated count 32 % [facility] Lymphocytes/100 leukocytes in Blood by Automated count 55 % [facility] Monocytes/100 leukocytes in Blood by Automated count 9 % [facility] Eosinophils/100 leukocytes in Blood by Automated count 3 % [facility] Basophils/100 leukocytes in Blood by Automated count 1 % [facility] Neutrophils [#/volume] in Blood by Automated count 1.46 10*3/uL 1.8-7 .0 L [facility] Lymphocytes [#/volume] in Blood by Automated count 2.51 10*3/uL 1.2-4 .0 [facility] Monocytes [#/volume] in Blood by Automated count 0.43 10*3/uL 0-0.8 [facility] Eosinophils [#/volume] in Blood by Automated count 0.16 10*3/uL 0-0.5 [facility] Basophils [#/volume] in Blood by Automated count 0.03 10*3/uL 0-0.2 [facility] Nucleated erythrocytes/100 leukocytes [Ratio] in Blood by Automated count 0 /100{WBCs} 0-0 [facility] ID Date Data Source [id number] 09/17/2020 08:03:16 AM EDT [facility] Name Value Range Interpretation Code Description Data [place] rce(s) Supporting Document(s) Cholesterol [Mass/volume] in Serum or Plasma 169 mg/dL <200 [facility] Triglyceride [Mass/volume] in Serum or Plasma 229 mg/dL <150 H [facility] Cholesterol in HDL [Mass/volume] in Serum or Plasma 38 mg/dL >50 L [facility] Cholesterol in LDL [Mass/volume] in Serum or Plasma by calcu lation 85 mg/dL <100 [facility] Cholesterol in VLDL [Mass/volume] in Serum or Plasma by calc ulation 46 mg/dl 16-42 H [facility] Cholesterol non HDL [Mass/volume] in Serum or Plasma 131 mg/dL <130 H [facility] ID Date Data Source [id number] 09/17/2020 08:03:16 AM EDT [facility] Name Value Range Interpretation Code Description Data [place] rce(s) Supporting Document(s) Albumin [Mass/volume] in Serum or Plasma by Bromocresol green (BCG) dye binding method 4.0 g/[facility] Bilirubin.total [Mass/volume] in Serum or Plasma <1.2 [facility] Calcium [Mass/volume] in Serum or Plasma 9.3 mg/dL 8.6-10.0 [facility] Chloride [Moles/volume] in Serum or Plasma 101 mmol/L 98-107 [facility] Creatinine [Mass/volume] in Serum or Plasma 0.66 mg/dL 0.50-0.90 [facility] Glucose [Mass/volume] in Serum or Plasma 115 mg/dL 70-140 [facility] Alkaline phosphatase [Enzymatic activity/volume] in Serum or Plasma 59 U/L 35-104 [facility] Potassium [Moles/volume] in Serum or Plasma 4.2 mmol/L 3.4-5.1 [facility] Protein [Mass/volume] in Serum or Plasma 6.5 g/dL 6.4-8.3 [facility] Sodium [Moles/volume] in Serum or Plasma 138 mmol/L 136-145 [facility] Aspartate aminotransferase [Enzymatic activity/volume] in Serum or Plasma 16 U/L <32 [facility] Urea nitrogen [Mass/volume] in Serum or Plasma 13 mg/dL 6-20 [facility] Osmolality of Serum or Plasma by calculation 287 mosm/kg 275-300 [facility] Creatinine/Urea nitrogen [Mass Ratio] in Serum or Plasma 20 [facility] Bicarbonate [Moles/volume] in Serum 27 mmol/L 22-29 [facility] Alanine aminotransferase [Enzymatic activity/volume] in Seru m or Plasma 13 U/L <33 [facility] Anion gap 3 in Serum or Plasma 9 mmol/L 8-15 [facility] Glomerular filtration rate/1.73 sq M pre dicted among non-blacks [Volume Rate/Area] in Serum or Plasma by Creatinine-based formula (MDRD) >6 0 [facility] Glomerular filtration rate/1.73 sq M pre dicted among blacks [Volume Rate/Area] in Serum or Plasma by Creatinine-based formula (MDRD) >60 [facility] ID Date Data Source [id number] 09/17/2020 08:03:[address] [facility] Name Value Range Interpretation Code Description Data [place] rce(s) Supporting Document(s) Thyrotropin [Units/volume] in Serum or Plasma 1.400 u[IU]/mL 0.270-4. 200 [facility] ID Date Data Source [id number] 09/17/2020 07:50:56 AM [facility] Value Range Interpretation Code Description Data [place] rce(s) Supporting Document(s) Hemoglobin A1c/Hemoglobin.total in Blood by HPLC 4.9 % 4.0-6.0 [facility] Glucose mean value [Mass/volume] in Blood Estimated fr om glycated hemoglobin 94 mg/dL <126 [facility] [facility] ID Date Data Source [id number] 09/12/2020 03:49:17 PM [facility] Value Range Interpretation Code Description Data [place] rce(s) Supporting Document(s) History and Physical [facility] DKUQZv2lYzPJYbWi17/UYBmgLCMal9DfPLwuYIi9UXgiWTVyM7NaOKQ6uT8tHSA5DSeKUeCpYsItDvS9 lbm [file] ThOM3AIh1LQmG0EWX4qYDaHq8DUKA1UiGWNdWfRD2HIUk= ID Date Data Source [id number] 09/12/2020 03:48:52 PM EDT [facility] Name Value Range Interpretation Code Description Data [place] [facility](s) Supporting Document(s) History and Physical [facility] ZXMNKu5vMnBNAoFy72/AADucTTUjk9JeYZeqUCx5XCdiECRzQ5FtCCK3sU7vEUV7DQgMFxQrGvIgPvL4 lbm [file] ICAgICAgICAgICAgICAgICAgICAgICAgICAgICAgICAgICAgICAgICAgICAgICAgICAgICAgICAgICAg ICAgDQogICAgICAgICAgICAgICAgICAgICAgICAgIC AgICAgICAgICAgICAgICAgICAgICAgICAgICAgICAgICAgICAgICAgICAgICAgICAgICAgICAgICAgIC AgICAgICAgICAgICAgDQogICAgICAgICAgICAgICAgICAgICAgICAgICAgICAgICAgICAgICAgICAgIC AgICAgICAgICAgICAgICAgICAgICAgICAgICAgICAg ICAgICAgICAgICAgICAgICAgICAgICAgDQogICAgICAgICAgICAgICAgICAgICAgICAgICAgICAgICAg ICAgICAgICAgICAgICAgICAgICAgICAgICAgICAgICAgICAgICAgICAgICAgICAgICAgICAgICAgICAg ICAgICAgDQogICAgICAgICAgICAgICAgICAgICAgIC AgICAgICAgICAgICAgICAgICAgICAgICAgICAgICAgICAgICAgICAgICAgICAgICAgICAgICAgICAgIC AgICAgICAgICAgICAgICAgDQogICAgICAgICAgICAgICAgICAgICAgICAgICAgICAgICAgICAgICAgIC AgICAgICAgICAgICAgICAgICAgICAgICAgICAgICAg ICAgICAgICAgICAgICAgICAgICAgICAgICAgDQogICAgICAgICAgICAgICAgICAgICAgICAgICAgICAg ICAgICAgICAgICAgICAgICAgICAgICAgICAgICAgICAgICAgICAgICAgICAgICAgICAgICAgICAgICAg ICAgICAgICAgDQogICAgICAgICAgICAgICAgICAgIC AgICAgICAgICAgICAgICAgICAgICAgICAgICAgICAgICAgICAgICAgICAgICAgICAgICAgICAgICAgIC AgICAgICAgICAgICAgICAgICAgDQogICAgICAgICAgICAgICAgICAgICAgICAgICAgICAgICAgICAgIC AgICAgICAgICAgICAgICAgICAgICAgICAgICAgICAg ICAgICAgICAgICAgICAgICAgICAgICAgICAgICAgDQogICAgICAgICAgICAgICAgICAgICAgICAgICAg ICAgICAgICAgICAgICAgICAgICAgICAgICAgICAgICAgICAgICAgICAgICAgICAgICAgICAgICAgICAg AVQnCZErBLGnPYVoETh8L3aiZPIxWPGvEV1kSBb9Rl 8+CZaUWlPbXLY2kaJxoJ1SZU4pv2QxJOdsXUOcu0VgIZq5IR7AXQZpDKovEQ2RFNuyrg1AFNUoCPRmdO JDn9csSsCgKCU7IPDxMxerRU3HGLSgN2uslvPsAQUvFBSWWTfwUWIYBTevPVENNJSgKQZvRsAmBhRySP OqPA0GNTCyV698vaFpFO4JVu9YIbDjYI2vhk8FTbZv PHMlLsbNFnj0KVgfLP2ZhBGwuBQhCjGbGKHIXyXvJ2dgm7QnKcfeAUWWQJttSG5Qt0EfcHUiISb+Pg0K GU2au5ZbAJyvJmYqGU4cvm2IZCmPPvHdG0UdvWkeKVmlPAKmpHPVCIFmOMZnDBggBjL7HWOVRPExsZB7 OrW4XuGvMxKaRUc6VZJzAZ6wMUzxBD5QWJU8UVmuAF YqREObB3aYIpZoGRXvTtAtsFdwQX8DBkRpY5JftwHypDPnCjHbSLSZCy9+YVubxpMqZmfONnN9SUJie3 MxACj8MD4AYJXeAPfyGD1KACFejG7hUUwyHK0AQkBaFDTtTQCGVzDjZ09tqTLeAMh0U0CwLlZpXZOqTl lsZXMgPDwvTmFtZXMgWyBdDQogID4+ID4+FLvdIG4T FCgkprAhTAJcBm4LUNAaIUEnYD8vXWAbLDXfA6A3uHagULRDBdFhW8mlawluDL6qPUFuR915eEdwwhDo VPO1AUUlWa0ZVPLqFLE5UHLbfYTtMcQrSQYSREezWA0FgYEkPNK8iB3rHBsdGUQcMNZnQ9lGFqUecRwn UW68tBycxcMnbDZeMEx+Zv3SBK5mw6UdLLa9adKdRF tnSVK5FYlnIRDgJFQeHQTwZED4XMW8CGVQNuZiKJQdIUQzMQmpTNHrFLLkdo7ZVRVtDUUlLtb1YPGbLQ SiIGHxPJosVQNiZQK4RcX7ZZYtZMTeZR1IDkBlJWNzPECiYNcbFMRsQGThjc1BFOXmFXPmDoW2WYJdQD CiZPJcEFsqAJHcRGEkKcXtOYMqYKFjMO2AXpNxZEQw EQHlMDYxCFAuZRBlsw0BSYTlYTLdFpS4OADrRBRrUHLlEPvdKVRhSVQ7OrGxQCMsTEHwWO2UKeWcNFBs HId2TJTgHKWuORLqqj7YLABnPXZxQyRhBbYzAGIpYODwLVkeGTIzFMJjHnLsEURhIFJwNG7BRcQvUQIc IVH8YhmbLXJpGRUsts6ZSTHqIOXdGwi0IRQeSNGfVE AeNNjiWTKjQNK1PAM9VOUmQJDuIH2DNsYaJGOuMMGuUuXxNMUuQDEkea9NUIZiTBBdIESqPYHjGQCtTF GdZFvsCVEcZPE0UnigCGGyRJTaMH7DZdQwIEQyVGX7HuIwPXTbNNRccv9HJGHzPGHeNpV2PvJlWAAqLN IrQAguQSEdPDM6KfShIZOrAHBrHP3XAfPaMZMbMAr0 VrSvXOGaHPUqxr7MTJEpMKTeSYCnUjXiYLGcBSVqHXgqRILnBAH4Hnt7IVOoKROnEI2JGmKmPZFwFuq5 IZXyMFMcASJpeh4DMITmJGIgGYbgYSKdEVKdJSFuEFfoHLJyHHPeAKW9ZCCkWWMrAW4QSaUqUCFuObLo BWBdZOBjLHTkyd5HSSYrVBSdSWL9WQDqFNEfJZSxKS ayCVJbKKGvNSBeDRCeRBUvWJ0NPsZmCCXeFrY8GKIvOCVbSAGwqr7RTOFgBSJcUwV5WmFwKPSxFLJrQM foFOPuHXNsFgC3OMFbIGNlUD5IXbUlXUGpMhR3IfagWVKbAELnsk7CWZLlQLSmLiX2TFEsXLZnVYEmSI ooHSCpYVE1WYWjYTTlQZGiSB3EZhQsQAOyMuT1ZYYp ZYBoJVGzeo8PEKEnZPPeNSB7XDVyNWFaQOGxLRy8jrRmqAOyNLp2DL0TE7CrypUrMdkVTo7Pl067SQC4 EWYhTa7ML8yiMb1oALWbBGVYFi4KEKe8JXMtNvXeBLL3KQXbHZfwZMXkIYi2HzisZQoaDCztBUE+IDwx RkMyDmLpBoN5OYMqPMTrYjNiUEw9SfAmZeV3ECW9LJ 8yDKJIBc4+NFwasYFgoPjyQLIDSaM1Kqb4ZDedUTUNVq9H ID Date Data Source [id number] 09/13/2020 01:25:53 PM EDT [facility] Service Cmnt XXX-Imp : NoneMicroorganism XXX Cult : Mental Health Program Specialist Mediated Amplification(TMA) is NEGATIVE for Neisseria gonorrhoeae AND NEGATIVE for Chlamydia trachomatis. Name Value Range Interpretation Code Description Data [place] rce(s) Supporting Document(s) ID Date Data Source [id number] 09/13/2020 10:45:47 AM EDT [facility] Cmnt XXX-Imp : NoneMicroorganism XXX Cult : No growth 1 day Name Value Range Interpretation Code Description Data [place] rce(s) Supporting Document(s) ID Date Data Source [id number] [facility] Value Range Interpretation Code Description Data [place] rce(s) Supporting Document(s) Color of Urine [facility] Clarity of Urine [facility] Specific gravity of Urine by Refractometry automated 1.012 1.003 -1.030 [facility] pH of Urine by Automated test strip 7.0 5.0-8.0 [facility] Protein [Mass/volume] in Urine by Automated test strip Neg [facility] Glucose [Mass/volume] in Urine by Automated test strip Neg [facility] Ketones [Mass/volume] in Urine by Automated test strip Neg [facility] Bilirubin.total [Presence] in Urine by Automated test strip Negative [facility] Hemoglobin [Presence] in Urine by Automated test strip Neg ative A [facility] Leukocyte esterase [Presence] in Urine by Automated test strip Negative [facility] Nitrite [Presence] in Urine by Automated test strip Negati ve [facility] Leukocytes [#/area] in Urine sediment by Automated count 0 -5 [facility] Erythrocytes [#/area] in Urine sediment by Automated count 7 /HPF 0-3 H [facility] ID Date Data Source [id number] 09/09/2020 04:46:00 PM EDT [facility] 1 OrderSheet [facility] Emergency Department [address] [place] [address] Phone #: ext- [phone] 09/09/2020 16:40 Patient: BRUNA LEE Sex: F : 1985 Age: 35yWEIGHT:68.9 kg (M) HEIGHT:60 inches (S) BMI:29.7ALLERGIES: Amoxicillin, Bactrim, Certain antipsycotics, Penicillins, SulfurCHIEF COMPLAINT: agitated, delusional, paranoid, manic, hallucinations, anxiousDIAGNOSIS: SchizophreniaLAB ORDERSOrder Description Priority Entered Acknowledged InitialedCBC w Diff STAT 17:09/09/2020 17:37 Tenisha Farrar Norma MD; Bruna R.N.CMP STAT 17:09/09/2020 17:37 Tenisha Farrar Norma MD; Bruna Abel .XinUrinalysis (Clean STAT 17:09/09/2020 Ack'd: 17:37 17:56 Edmund Farrar) Zaynab Steven MD; Bruna Farrar.N. R.N.Urine Drug Screen STAT 17:09/09/2020 Ack'd: 17:37 17:56 Tenisha Farrar Norma MD; Bruna Farrar.N. R.N.ETOH STAT 17:09/09/2020 17:37 Tenisha Farrar Norma MD; Bruna R.N.Magnesium STAT 17:09/09/2020 17:37 Tenisha Farrar Norma MD; Bruna Abel.N.Acetaminophen STAT 17:09/09/2020 17:37 Rahul Farrar Norma MD; Bruna MarySalicylate Level STAT 17:29 09/09/2020 17:37 Tenisha Farrar Norma MD; Bruna MaryDIAGNOSTIC STUDY ORDERSOrder Description Priority Entered Acknowledged InitialedMEDICATION/IV/DRIP/FLUID ORDERSOrder Description Priority Entered Acknowledged InitialedGENERAL ORDERSOrder Description Priority Entered Acknowledged InitialedEKG 17:29 09/09/2020 Ack'd: 17:37 17:56 Tenisha Farrar Norma MD; Bruna Farrar R.N. 2 OrderSheet [facility] Emergency Department [address] [place] [address] Phone #: ext- [phone] 09/09/2020 16:40 Patient: BRUNA LEE Sex: F : 1985 Age: 35y R.N.[Electronically signed by Bruna Farrar R.N. (22:38 09/09/2020)][Electronically signed by Zaynab Steven MD (07:09/11/2020)][Electronically locked by Bruna Farrar R.N. (22:38 09/09/2020)] Name Value Range Interpretation Code Description Data [place] rce(s) Supporting Document(s) ID Date Data Source [id number] 09/09/2020 04:46:00 PM EDT [facility] 1 Medication Reconciliation Report [facility] Emergency Department [address] [place] [address] Phone #: ext- [phone] 09/09/2020 16:40 Patient: [...] Home Medication information:patient 2 Medication Reconciliation Report [facility] Emergency Department [address] [place] [address] Phone #: ext- [phone] 09/09/2020 16:40 Patient: BRUNA LEE Sex: F : 1985 Age: 35yThe following Medications were given to the patient in the Emergency Department:None.The following Medications were prescribed to the patient:None. Name Value Range Interpretation Code Description Data [place] rce(s) Supporting Document(s) ID Date Data Source [id number] 09/09/2020 04:46:00 PM EDT [facility] 1 Medication Administration Record [facility] Emergency Department [address] [place] [address] Phone #: ext- [phone] 09/09/2020 16:40 Patient: BRUNA LEE Sex: F : 1985 Age: 35yWeight: 68.9 kgHeight/Length: 60 inBMI: 29.7ALLERGIES: Sulfur, Amoxicillin, Penicillins, Bactrim, Certain antipsycoticsDate/Time Medication Administered Medication Ordered Name Value Range Interpretation Code Description Data [place] rce(s) Supporting Document(s) ID Date Data Source [id number] 09/09/2020 04:46:00 PM EDT [facility] 1 General Instructions [facility] Emergency Department [address] [place] [address] Phone #: ext- [phone] 09/09/2020 16:40 Patient: [...] Severe anxiety Feeling unreal 2 General Instructions [facility] Emergency Department [address] [place] [address] Phone #: ext- [phone] 09/09/2020 16:40 Patient: [...] providers about all of the prescription medicines, wekx-zvo-mclpjqq medicines, and supplements you take. Certain supplements [...] operates a toll-free ADA information line at: [phone] (voice) or [phone] (TTY). They can help you locate a local office.Follow-up careFollow up with your doctor or therapist , or as advised.Jae [place] 211Call 911 if you: 3 General Instructions [facility] Emergency Department [address] [place], [place] [id number] Phone #: ext- [phone] 09/09/2020 16:40 Patient: [...] yourself or others Worsening depression or anxiety [phone] [employer] [place] [address]. All rights reserved. This information is not intended as asubstitute for professional medical care. Always follow your healthcare professional's instructions. You have been given the following additional information: Schizophrenia, General(Electronically signed by Zaynab Steven MD 09/11/2020 07:17) 4 General Instructions [facility] Emergency Department [address] [place] [address] Phone #: ext- [phone] 09/09/2020 16:40 Patient: BRUNA LEE Sex: F : 1985 Age: 35y Name Value Range Interpretation Code Description Data [place] rce(s) Supporting Document(s) ID Date Data Source [id number] 09/09/2020 04:46:00 PM EDT [facility] 1 Clinical Report - Nurses [facility] Emergency Department [address] [place] [address] Phone #: ext- [phone] 09/09/2020 16:40 Patient: [...] 97%. Temp: 98 F (oral). Pain levelnow: 1010. --16:51 09/09/20 Amado Chow.Weight: 68.9 kg measured. Height/Length: 60 inches Per Patient. BMI: 29.7. --16:41 09/09/20 Amado Chow.MedicationsAmitriptyline HCl Oral (Tablet 50 mg). cloNIDine HCl Oral (Tablet 0.2 mg), daily as needed. Gabapentin Oral (Tablet 600 mg). Keppra Oral (Tablet 1000 mg). Latuda Oral (Tablet 60 mg). Nurontin. PriLOSEC Oral. --22:37 09/09/20 Bruna Farrar R.N. Provasac. RisperDAL Oral. Strattera Oral. Suboxone Sublingual 8 , daily. SUMAtriptan Succinate Oral. Unknown stomach pill. --22:37 09/09/20 Bruna Farrar R.N.AllergiesPenicillins. --16:43 09/09/20 Zenon ChowinAmoxicillin. --16:43 09/09/20 Zenon ChowinSulfur. --16:44 09/09/20 Amado Chow 2 Clinical Report - Nurses [facility] Emergency Department [address] [place] [address] Phone #: ext- [phone] 09/09/2020 16:40 Patient: [...] factors identified. 3 Clinical Report - Nurses [facility] Department [address] [place] [address] Phone #: ext- [phone] 09/09/2020 16:40 Patient: [...] yell profanity 4 Clinical Report - Nurses [facility] Department [address] [place] [address] Phone #: ext- [phone] 09/09/2020 16:40 Patient: BRUNA LEE Sex: F [...] left the Emergency Department ambulatory. ( [facility] [place] [employer]). --22:35 09/09/20 Bruna Farrar R.N. 21:35 [...] rce(s) Supporting Document(s) ID Date Data Source [id number] 09/09/2020 04:46:00 PM EDT [facility] 1 Clinical Report - Physicians/Mid Levels [facility] Emergency Department [address] [place] [address] Phone #: ext- [phone] 09/09/2020 16:40 Patient: BRUNA LEE Sex: Lino : 1985 Age: 35y Arrived- By private [...] Abdominal Pain. 2 Clinical Report - Physicians/Mid Levels [facility] Emergency Department [address] [place] [address] Phone #: ext- [phone] 09/09/2020 16:40 Patient: BRUNA LEE Sex: F : 1985 Age: 35y Depression. Anxiety Reaction. Substance Abuse. Peptic Ulcer Disease. Polysubstance abuse. PTSD. Schizophrenia. Additional Surgeries: Hernia Repair. (Umbilical ). Allergies: Amoxicillin. Penicillins. Sulfur.SOCIAL HISTORYNo drug use.ADDITIONAL NOTESThe nursing notes have been reviewed.PHYSICAL EXAMVital Signs: 09/09/2020 21:26 HR: 65. RR: 16. O2 saturation: 98% on room air. Temp: 97.1 F. Pain levelnow: 10/10.09/09/2020 16:41 BP: 112/65. MAP: 80. HR: 95. [...] (Reference) 3 Clinical Report - Physicians/Mid Levels [facility] Emergency Department [address] [place] [address] Phone #: ext- [phone] 09/09/2020 16:40 Patient: BRUNA LEE Sex: F [...] Male GFR Interprentation 20-49 yrs >60 mL/min Schktc31-20 yrs >56 mL/min Normal 60-69 yrs >49 mL/min Normal 70-79yrs>42 mL/min Normal 80 and above >35 mL/min Normal Female GFRInterpretation 20-39 yrs >60 mL/min Normal 40-49 yrs >58 mL/minNormal 50-59 yrs >51 mL/min Normal 60-69 yrs >45 mL/min Normal 4 Clinical Report - Physicians/Mid Levels [facility] Emergency Department [address] [place] [address] Phone #: ext- [phone] 09/09/2020 16:40 Patient: BRUNA LEE Sex: F : 1985 Age: 45i02-20 yrs >39 mL/min Normal 80 and above >32 mL/min NormalUrinalysis: (JENN: 09/09/2020 17:40) ( [facility] [place]04[place] Final results Test Result Flag [...] Not IndicateDrug Screen-Urine: (JENN: 09/09/2020 17:40) ( [facility] [place]/09[place] 18:19) Final results Test Result Flag [...] PRESUMPTIVE POSITIVE CONFIRMATION WILL BE PERFORMED AT [facility].ETOH: (JENN: 09/09/2020 17:40) ( [facility] [place]/09[place] 18:29) Final results Test Result Flag Units (Reference) ALCOHOL <10.0 MG/DL ALCOHOL % 0.01 % (0.00 - 0.01) *FOR MEDICAL PURPOSES ONLY*Magnesium: (JENN: 09/09/2020 17:40) ( [facility] [place]09[place] 18:54) Final results Test Result Flag Units (Reference) MAGNESIUM 2.2 MG/DL (1.7 - 2.2)Acetaminophen Level: (JENN: 09/09/2020 17:40) ( [facility] [place] 09/09/[place] 18:29) Final results Test Result Flag Units (Reference) 5 Clinical Report - Physicians/Mid [facility] Emergency Department [address] [place] [address] Phone #: ext- [phone] 09/09/2020 16:40 Patient: BRUNA LEE Sex: F : 1985 Age: 35y ACETAMINOPHEN <5.0 UG/ML (0.0 - 30.0) Salicylate Level: (JENN: 09/09/2020 17:40) ( [facility] 09/09/2020 18:36) Final results Test Result Flag [...] 09/11/2020 07:17) 6Clinical Report - Physicians/Mid Levels [facility] Emergency Department [address] [place] [address] Phone #: ext- [phone] 09/09/2020 16:40 Patient: BRUNA LEE Sex: F : 1985 Age: 35y Name Value Range Interpretation Code Description Data [place] rce(s) Supporting Document(s) ID Date Data Source [id number] 09/11/2020 01:50:00 AM EDT [place] [id number] RESPIRATORY CARE REPORT ==== ---------NAME------- NUMBER SEX AGE ADMIT DISC. XRAY# F/C TYPECOME BRUNA [id number] F 35 09/09/20 09/09/20 [id number] E/R DATE OF : 1985 M/R# [id number] #: [id number] VT-05 [facility] [id number] [facility] TE:09/10/20 01:43 T [id number] PHYSICIAN: AUTUMN ZENG Name Value Range Interpretation Code Description Data [place] rce(s) Supporting Document(s) ID Date Data Source [id number] 09/10/2020 06:29:00 PM EDT [facility] Name Value Range Interpretation Code Description Data [place] rce(s) Supporting Document(s) SARS coronavirus 2 RNA [Presence] in Res piratory specimen by MARK with probe detection NEGATIVE [facility] This lab was ordered by [facility] a nd reported by [facility]. ID Date Data Source [id number] 09/09/2020 06:53:00 PM EDT [facility] Name Value Range Interpretation Code Description Data [place] rce(s) Supporting Document(s) Magnesium [Mass/volume] in Serum or Plasma 2.2 MG/DL 1.7 - 2.2 [facility] ID Date Data Source [id number] 09/09/2020 06:52:00 PM EDT [facility] Name Value Range Interpretation Code Description Data [place] rce(s) Supporting Document(s) COMPREHENSIVE METABOLIC PANEL [facility] COMPREHENSIVE METABOLIC PANEL Sodium [Moles/volume] in Serum or Plasma 137 mEq/L 134 - 153 [facility] Potassium [Moles/volume] in Serum or Plasma 4.0 mEq/L 3.6 - 5.0 [facility] Chloride [Moles/volume] in Serum or Plasma 99 mEq/L 98 - 107 [facility] Carbon dioxide, total [Moles/volume] in Serum or Plasma 27 MEQ/L 22 - 30 [facility] Glucose [Mass/volume] in Serum or Plasma 103 MG/DL 70 - 99 H [facility] BUN 11 MG/DL 7 - 21 [facility] al Creatinine [Mass/volume] in Serum or Plasma 0.7 MG/DL 0.7 - 1.5 [facility] BUN/CREAT 16 8 - 27 [facility] al Protein [Mass/volume] in Serum or Plasma 7.1 G/DL 6.3 - 8.2 [facility] Albumin [Mass/volume] in Serum or Plasma 4.6 G/DL 3.9 - 5.0 [facility] Globulin [Mass/volume] in Serum by calculation 2.5 GM/DL 2.4 - 3.2 [facility] A/G RATIO 1.8 0.8 - 2.0 [facility] Calcium [Mass/volume] in Serum or Plasma 9.8 MG/DL 8.4 - 10.2 [facility] Bilirubin.total [Mass/volume] in Serum or Plasma <0.7 MG/DL 0.2 - 1.3 [facility] Alkaline phosphatase [Enzymatic activity/volume] in Serum or Plasma 68 U/L 38 - 126 [facility] Aspartate aminotransferase [Enzymatic activity/volume] in Serum or Plasma 22 U/L 5 - 40 [facility] Alanine aminotransferase [Enzymatic activity/volume] in Seru m or Plasma 16 U/L 7 - 56 [facility] Anion gap 3 in Serum or Plasma 11.0 mmol/L 8.0 - 16.0 [facility] AGE 35 yrs [facility] al NON-AA GFR >60 mL/min [facility] ital AFR AMER GFR >60 mL/min [facility] Male GFR In terprentation [...] >32 mL/min Normal ID Date Data Source [id number] 09/09/2020 06:36:00 PM EDT [facility] Name Value Range Interpretation Code Description Data [place] rce(s) Supporting Document(s) SALICYLATE <0.3 mg/dL 2.0 - 20.0 L [facility] ID Date Data Source [id number] 09/09/2020 06:29:00 PM EDT [facility] Name Value Range Interpretation Code Description Data [place] rce(s) Supporting Document(s) Acetaminophen [Presence] in Urine <5.0 UG/ML 0.0 - 30.0 [facility] ID Date Data Source [id number] 09/09/2020 06:29:00 PM EDT [facility] Name Value Range Interpretation Code Description Data [place] rce(s) Supporting Document(s) Ethanol [Moles/volume] in Blood <10.0 MG/DL [facility] ALCOHOL % 0.01 % 0.00 - 0.01 [facility] ital *FOR MEDICAL PURPOSES ONLY * ID Date Data Source [id number] 09/09/2020 06:18:00 PM EDT [facility] Name Value Range Interpretation Code Description Data [place] rce(s) Supporting Document(s) DRUG SCREEN URINE [facility] URINE DRUG SCREEN Amphetamine [Presence] in Urine by Screen method NEGATIVE NORMAL: N EGATIVE [facility] BARBITURATES NEGATIVE NORMAL: NEGATIVE [facility] BENZO NEGATIVE NORMAL: NEGATIVE [facility] COCAINE NEGATIVE NORMAL: NEGATIVE [facility] Tetrahydrocannabinol [Presence] in Urine NEGATIVE NORMAL: NEGATIVE [facility] OPIATES NEGATIVE NORMAL: NEGATIVE [facility] Phencyclidine [Presence] in Urine by Screen method NEGATIVE NOR MAL: NEGATIVE [facility] \\BLDo\\URINE DRUG SCR EEN INTERPRETATION\\BLDx\\ THE CUTOFFF LEVELS FOR DETECTION ARE FOLLOWS: AMPHETAMINES 1000 ng/ml BARBITUARATES 200 ng/ml BENZODIAZEPINES 100 ng/ml THC 50 ng/ml PHENCYCLIDINE 25 ng/ml OPIATES 300 ng/ml COCAINE 300 ng/ml ALL POSITIVES ARE CONSIDERED PRESUMPTIVE POSITIVE CONFIRMATION WILL BE PERFORMED AT PHYSICIAN REQUEST. ID Date Data Source [id number] 09/09/2020 06:04:00 PM EDT [facility] Name Value Range Interpretation Code Description Data [place] rce(s) Supporting Document(s) CBC W/AUTOMATED DIFF [facility] COMPLETE BLOOD COUNT Leukocytes [#/volume] in Blood by Automated count 9.6 10^3/uL 4.2 - 1 1.0 [facility] Erythrocytes [#/volume] in Blood by Automated count 4.34 10^6/uL 4. 20 - 5.40 [facility] Hemoglobin [Mass/volume] in Blood 12.7 g/dL 12.0 - 16.0 [facility] Hematocrit [Volume Fraction] of Blood by Automated count 38.1 % 3 7.0 - 47.0 [facility] Erythrocyte mean corpuscular volume [Entitic volume] by Auto mated count 87.8 fL 81.0 - 101 [facility] Erythrocyte mean corpuscular hemoglobin [Entitic mass] by Automated count 29.3 pg 27.0 - 34.0 [facility] Erythrocyte mean corpuscular hemoglobin concentration [Mass/volume] by Automated count 33.3 g/dL 31.0 - 36.0 [facility] Erythrocyte distribution width [Ratio] by Automated count 13.5 % 11.5 - 14.5 [facility] Platelets [#/volume] in Blood by Automated count 357 10^3/uL 150 - 45 0 [facility] Platelet mean volume [Entitic volume] in Blood by Automated count 9.6 fL 7.4 - 10.4 [facility] Neutrophils/100 leukocytes in Blood by Automated count 50.9 % 37. 0 - 80.0 [facility] Lymphocytes/100 leukocytes in Blood by Manual count 39.4 % 25.0 - 40.0 [facility] Monocytes/100 leukocytes in Blood by Automated count 7.5 % 3.0 - 8.0 [facility] Eosinophils/100 leukocytes in Blood by Automated count 1.1 % 0.0 - 7.0 [facility] Basophils/100 leukocytes in Blood by Automated count 0.6 % 0.0 - 2.5 [facility] %IG 0.5 % 0.0 - 0.0 [facility] %NRBC 0.0 % 0.0 - 0.0 [facility] al Neutrophils [#/volume] in Blood by Automated count 4.86 10^3/uL 2.00 - 6.90 [facility] Lymphocytes [#/volume] in Blood by Automated count 3.77 10^3/uL 0.60 - 3.40 H [facility] Monocytes [#/volume] in Blood by Automated count 0.72 10^3/uL 0.00 - 0.90 [facility] Eosinophils [#/volume] in Blood by Automated count 0.11 10^3/uL 0.00 - 0.70 [facility] Basophils [#/volume] in Blood by Automated count 0.06 10^3/uL 0.00 - 0.20 [facility] #IG 0.05 10^3/uL 0.00 - 0.10 [facility] H ospital #NRBC 0.00 10^3/uL 0.00 - 0.00 [facility] ospital MANUAL DIFF NOT INDICATED [facility] RBC MORPH NOT INDICATED [facility] spital ID Date Data Source [id number] 09/09/2020 06:04:00 PM EDT [facility] Name Value Range Interpretation Code Description Data [place] rce(s) Supporting Document(s) [facility]ALYS[facility] SOURCE R [facility] al COLOR yellow NORMAL: Yellow [facility] ospital CLARITY clear NORMAL: Clear [facility] spital Specific gravity of Urine by Test strip 1.010 1.001 - 1.030 [facility] pH 7 5 - 9 [facility] al Glucose [Mass/volume] in Urine by Test strip NORM NORMAL: Negat [facility] Bilirubin.total [Presence] in Urine by Test strip NEG NORMAL: Negative [facility] Ketones [Presence] in Urine by Test strip NEG NORMAL: Negative [facility] Protein [Mass/volume] in Urine by Test strip NEG NORMAL: Negat [facility] Nitrite [Presence] in Urine by Test strip NEG NORMAL: Negative [facility] BLOOD NEG NORMAL: Negative [facility] LEUK EST NEG NORMAL: Negative [facility] Urobilinogen [Mass/volume] in Urine by Test strip NOR less kenna n 1.0 mg/dL [facility] MICROSCOPIC Not Indicate [facility] ID Date Data Source [id number] 08/27/2020 04:17:02 PM EDT [facility] Name Value Range Interpretation Code Description Data [place] rce(s) Supporting Document(s) Discharge Summary [facility] EWFDLd7cWxRDVvVp04/PBFbdVCPrs3TaVYhvAMf3FBcgCNCsY9OtRTP6qP3zCNP7PPdDAeLuHiGzLhKj lbm XkKbyEOlNiSRYcVbfSQyIaIOmeYczlrUSbVC5YgUR1TLArP32dQPVbSYCjC3RuGED6TDW+Uw1XNLQvbK InAE2CLenS6L4Tu2aLWs2sty7LB6QCzkYHnrFLyBqCreaWZecN1pGZ327REGVWtlLDVpce/Pcf8Lp70Y pdLnW7JnjtWoqrx90oxYRzxv4+QmyeMhrOdS11W58W itlG/G3xwa7Ole4n4Op9VKjXGCaGT3+gPlrmp1/0lcjK2odSCAKDarbbQw+3sQnctKX5//N9gpI7XcZF x0MSbLDkasy8zkTHjaW6lPxu5Xen+k4wIGBh49ZhHopKXo8Jo2mlSf5RpoLeIWuEmlgmVlUgwhEh33Ei B4w0HqU5YiktbXQfHs7cwLGm1CCHLlQsp0mbnOkv9b JrEP9jEA3LppqsZhjBNzeB+uTj7waUEbATM3arYwKUcrbK93vhFVDbiUn8v+HS1ZEY9HSS+qHY07XEnW mZF3ZP8BruAVmqAsEO6fekkndbUQ+l1Fw8AdVI4lWcx+XIaDiMtmtdJhGylxwQo8DViEvu4MVS7C9oc+ u4mGe8qfVS2ntL0dd2h5tMtYxnT41v6o6P4+2NodF8 whsYLvbdpIp59e4X/WmzhdbDGnlLRHM0PsJYjhaBl68e+vY8wcPznu1r5TResT8T4autscrmE19wq15w NhGjG/zhnkDEw8EKjpKm+GyZiVUSLZsWbLqwacAmUxZ/EZVBhYy0ROb2LEuwbfUfdDzeRxn2mpiuXOqk sqiA8JqlcRnlavM+XVjyB+rbUMcwbWnVdPHjh86Tb4 8XG1ZgbIHi3LVUFfY9/PG3WBcsZpvnwIAZ2CEAvKB/2/ae/Y6S/e8PCaFGK1kS+EJMY/87i0k8vuL0v0 wzaUhT/f2m6qwpc5WYcFXNTorKMmhJ9I6DeN1JJRMHezqgXFbELFjVrXcjYxZzbkgsdLOecIxCQX+Anc HpeGA1XTJW6fe/iZOtBXSEMCIHHKFQQRO7nxPVgJA5 [file] AgICAgICAgICAgICAgICAgICAgICAgICAgICAgICAg ICAgICAgICAgICAgICAgICAgICAgICAgICANCiAgICAgICAgICAgICAgICAgICAgICAgICAgICAgICAg ICAgICAgICAgICAgICAgICAgICAgICAgICAgICAgICAgICAgICAgICAgICAgICAgICAgICAgICAgICAg ICAgICAgICANCiAgICAgICAgICAgICAgICAgICAgIC AgICAgICAgICAgICAgICAgICAgICAgICAgICAgICAgICAgICAgICAgICAgICAgICAgICAgICAgICAgIC AgICAgICAgICAgICAgICAgICANCiAgICAgICAgICAgICAgICAgICAgICAgICAgICAgICAgICAgICAgIC AgICAgICAgICAgICAgICAgICAgICAgICAgICAgICAg ICAgICAgICAgICAgICAgICAgICAgICAgICAgICANCiAgICAgICAgICAgICAgICAgICAgICAgICAgICAg ICAgICAgICAgICAgICAgICAgICAgICAgICAgICAgICAgICAgICAgICAgICAgICAgICAgICAgICAgICAg ICAgICAgICAgICANCiAgICAgICAgICAgICAgICAgIC AgICAgICAgICAgICAgICAgICAgICAgICAgICAgICAgICAgICAgICAgICAgICAgICAgICAgICAgICAgIC AgICAgICAgICAgICAgICAgICAgICANCiAgICAgICAgICAgICAgICAgICAgICAgICAgICAgICAgICAgIC AgICAgICAgICAgICAgICAgICAgICAgICAgICAgICAg ICAgICAgICAgICAgICAgICAgICAgICAgICAgICAgICANCiAgICAgICAgICAgICAgICAgICAgICAgICAg ICAgICAgICAgICAgICAgICAgICAgICAgICAgICAgICAgICAgICAgICAgICAgICAgICAgICAgICAgICAg ICAgICAgICAgICAgICANCiAgICAgICAgICAgICAgIC AgICAgICAgICAgICAgICAgICAgICAgICAgICAgICAgICAgICAgICAgICAgICAgICAgICAgICAgICAgIC AgICAgICAgICAgICAgICAgICAgICAgICANCiAgICAgICAgICAgICAgICAgICAgICAgICAgICAgICAgIC AgICAgICAgICAgICAgICAgICAgICAgICAgICAgICAg ICAgICAgICAgICAgICAgICAgICAgICAgICAgICAgICAgICANCjw/nYXuU5dpaBDvfgL9E0neMh5QKd3M BF4ho5AhDMSqXHjbkuOcTyjASeBsRWUwCvyXSze9OMzxYM4YsOQdU7ZsR7QtYTugKA0KKHSpLTRavZCo UEHwEWFyGqH9IOAjRVyfWC3UsJQrWDvtCZTbWKVfXy MuWLHwFNRjCWMjQWRpGVGRDSWsSWXjFgInRHElLKWgVLrxDMRUEYU1HJJkIcFkDJRlMUDmGlChUANMCM 1APtTrQ7HgmZ09LLTbTLl+Kl6QPC0uf6GjKPk2IpLjQQ9zaw8QHZfQBbUgM8EkivL5MLGfUPSjHh1UQO RdYVGetSM1RtVvSYPELvUwD5BkhB53ZXJCHy6+DQpl caWgSftVAwOiRFCkl5NpMGm8NV7KZKIwDFf5yRVeQFoiA2cwfvljXRW7jC7ylplxCoqjYTHwnXbbRCpm ML9qWW9RNMU7KJwwSc8mVYPxQFVcPbI9UMEYRN7GKFLoUCUdkOBxLXGtRPBINM8QUNchMUR7KQZkgbHh zTYsWWjzFH9NREMrqaVtGeRfNLYSNPp+Xu0AKH8af2 XqPZo7MOGuGA9uzr7GZJwKOhTxL7X0vTQjV0H4FEcxPc0AHQMgRJSjWuMeQVFMIVjuMN9LAN3sbqY1YO 5ZcVNaIFBcVOBnvPLwFUq9B22xaBGmWRepIO7MMTD+Luz+Qv1VINUoNLMvPGWnSuMtPNWEFcIrX9TfE8 TNd6GmH8HoCI22xZkciwLaCTrbMP9QRL1tPHEzXWGD VO9AdPBzjJ0aviR0LcQgNIRCUuXtG74toQGjTUWoJTXjMXTtLk9GXVTfE0HouhBupJxudgVrHWVsKBXQ RV0KGUitubTgxAEnaLclPU61rRldKC9RQa6GWgGfXY1ziu9UpUIzSz2RDWI8SG8EFCSmWLMjJYUkHXE0 YMSuYeLeIVuoYQVgLOHnLCK3TLWlFQHyUV0DSgThBC EfEQX2FKfnQPJgLALhtg3NTVVfFVM6EHhzFEKnJFElFYGyUCwnLAUmZLSlGIF3IBGuXYRgIW3PXsCrDN BtZQUcLluoXOMlUZClcm3HZNWlJJUsDKZ8QaQoFZVoQHFtMJziWTEoNDR7YES8RWWmQXInIL7GPiVxNP JkJNgdJnkeMTFqLWDbyr0YWGTqXMAkNJLlZiEmNNDc STSoPSxrVDPvQROjHdA5MEWxSCLvYJ9QCoFsRWTlIJH9WtkwJCQgFLSbcd6BEIYgFORyUOQ1KGPuAEQr QFQpZSklWCAfHQK2QoK7CRPxAYKgDI1DEvQxFIFeHUa1QPYkHBJuXDMgfz0BRZYnZPFjVqj6FiRnMTGr LJFgYUdwAKLkPDYlOIiiZCIbIKMaLG5JXlHmOIKpQk Y1PgMtZNZtLACslb3BXUYmUCLaCsW9VNFwRPDbTZFoNZbhBISxWDWgJLw9VPWbDDVbWG6CQuIzJYPfCr WnWIWhMLEeLGUflh5SIZTgURBoUwHbPYMyKFOiPZSaBFxsSIUfHMHgQmR0GXVzAEGlVD4XGbKsNMPoBj S4GHFeTGFlAWQdqo0WMDHjFQPvSml4MgTkPBNjXSOt IXaiAJAkHWI4KDN6NFOrFLDdKL3ZFhDbSLJkAytxARQjIYJuYASbdg9ERSQtPSUlFGZkRkYpCAJjKZJx TTrkFUQdKYK3Nru7PGFvUFBdJC5WFvCiFYCtZft0ZVgiJYPnVWVuwc3FJUOzLHZaIXA9XbKeEIBsCQOj DRpxIGEiXQNvYfN5SGSkJLUmHA7UQuVgBLUrOIC5Dk cbEQYsNSDgga8WIEZmYHB2PRIeNMHjVSShOGKpQZvyVOAkPZDvNWs3ZCDtCIXwRT6FDlDmTJWkVUGmNO GtKQDhLSWgkj8OZITxGUB4IoM1IONoZGVsUOYuYMfeBXYtBFYkFzX7LQIiXZDbWC0WEcOhGNMeUAB7Gt imIEScSBZlfj7EMSYjQJJ7IukaEPFeBTHmZHGdOVbl KXRxSVC9JDB5LHOiPLStXO6NOaRnTTAqSPR5JnDpWKUxSWKnde2WHSEgYRL1KCEmJALeWNOrDCZhLNkg SLYtXBL1GMhpNNExZZJoDO9VRfCmJQEcKFSwODPeSUNuVMWrsq0BUNQfJPD7Dhp6FMPxKCYgPWInYYoh HQVrVBE7EWDtQASsKBObHJ7AJkAmPFHnBWppDgLuGF VnYJSxnd0XVHSjZWV0ISA1OBJvEFQqDZRrQJmgJMXqTLW6LBl7SPAcVADhKA3AZdUtPBTgBuQhIJqwFV RrNYCuiw0RBECxKOJ3SBTkAkUdPDDrFROoELnlNUCmWImwJRx3UEHqBEObCF6UKsKcUFQfMUF3RhoxTR BbBCDecr0JVPZgWHL5EkV4DoSiODTyQFAfBZxjGGFp FZuvSlnpFCHqTOZsBK1JUeGuPYXmUAD7StTbVCObXHBdlc4AGZLlUMS9NmJ6MiOuIBXjADBrEVkqCXFs DYvpIfY8JNLvQJNgVH5LQpSmXENdKGA3QROmMNUiRVTgmr2YFYAvMKB5Wmk3PYJnGZGlRMTtUHudVYCe SDg0SFn5KKCtLXJpSJ6UWmZtYBIiMYN7MNksCZAsGE Eldd3TZMUtVRT0DlH9RXWnBONjZYXjIQofGWPdROq2EtB2TLZdQXVqOB1SThGeDUooRKQKWwq7KHmpH6 a6EID7XH7DM1Rvu9RcZjWaHPPEQEyjWW9oknOlCPUkDq4RT5aXZpcfKIM8MkQtMDbkYyM7BimlBjZaD8 NjMhHcVCKmEbA7Xe9zQFUxKtC6GLV6FyToBCXjEEAh YUV3IEQbKYOuRDRvCspiJcHiQS9EBu6QUfL9MVP4dWZdSf5HFIT0VWAZUtFjVT3HROs= ID Date Data Source [id number] 08/26/2020 04:11:50 PM EDT [facility] Name Value Range Interpretation Code Description Data [place] e(s) Supporting Document(s) History and Physical [facility] TIJJOx5dPpNDNeVa02/MIZhdSVApu8DbUPtzUMn1OVirCFXeU2JeBFL8rW8iQKM9YIzRAsOoViTzKiZm lbm [file] AgICAgICAgICAgICAgICAgICAgICAgICAgICAgICAg ICAgICAgICAgICAgICAgICAgICAgICANCiAgICAgICAgICAgICAgICAgICAgICAgICAgICAgICAgICAg ICAgICAgICAgICAgICAgICAgICAgICAgICAgICAgICAgICAgICAgICAgICAgICAgICAgICAgICAgICAg ICAgICANCiAgICAgICAgICAgICAgICAgICAgICAgIC AgICAgICAgICAgICAgICAgICAgICAgICAgICAgICAgICAgICAgICAgICAgICAgICAgICAgICAgICAgIC AgICAgICAgICAgICAgICANCiAgICAgICAgICAgICAgICAgICAgICAgICAgICAgICAgICAgICAgICAgIC AgICAgICAgICAgICAgICAgICAgICAgICAgICAgICAg ICAgICAgICAgICAgICAgICAgICAgICAgICANCiAgICAgICAgICAgICAgICAgICAgICAgICAgICAgICAg ICAgICAgICAgICAgICAgICAgICAgICAgICAgICAgICAgICAgICAgICAgICAgICAgICAgICAgICAgICAg ICAgICAgICANCiAgICAgICAgICAgICAgICAgICAgIC AgICAgICAgICAgICAgICAgICAgICAgICAgICAgICAgICAgICAgICAgICAgICAgICAgICAgICAgICAgIC AgICAgICAgICAgICAgICAgICANCiAgICAgICAgICAgICAgICAgICAgICAgICAgICAgICAgICAgICAgIC AgICAgICAgICAgICAgICAgICAgICAgICAgICAgICAg ICAgICAgICAgICAgICAgICAgICAgICAgICAgICANCiAgICAgICAgICAgICAgICAgICAgICAgICAgICAg ICAgICAgICAgICAgICAgICAgICAgICAgICAgICAgICAgICAgICAgICAgICAgICAgICAgICAgICAgICAg ICAgICAgICAgICANCiAgICAgICAgICAgICAgICAgIC AgICAgICAgICAgICAgICAgICAgICAgICAgICAgICAgICAgICAgICAgICAgICAgICAgICAgICAgICAgIC AgICAgICAgICAgICAgICAgICAgICANCiAgICAgICAgICAgICAgICAgICAgICAgICAgICAgICAgICAgIC AgICAgICAgICAgICAgICAgICAgICAgICAgICAgICAg ICAgICAgICAgICAgICAgICAgICAgICAgICAgICAgICANCjw/lHYjL7rtvAFcouI7J2aaMp8ZLz8PCB0w q0KwSCBeEDskxpIdAblVYcTlUJEjVhdJHtu0EMnnJY4SqGSkW6HzJ3OdQRfdJE8OTPRyPUNktICgGKQs RZRhUkK1UMBcQDemLT5ChRFiFGtzBDHnOOFoQrZcEZ KwESOeOULcZLIwDYELHDEnFGPiEaTcCSPkDJPnQLviDNGNZH8SKlRtZ7AsoC83NOlOYl0+DQplbmRvYm uIAfMvWKHug6BuSTl1YV3NSSHnInlyc4MsFEEjNAETEXlbIY5WAQT5UBKhQOXwPe4XGMGrW359ohUnHI 9BCh4DKgYbEK8rbh2OEXMaKOYmHmwFUei0CTzvCO9P gAXjCInVBgXaJrkrFKTosTdeKPehGK3dHT0CVKK8TLrbIG0yLZCiTCTnMzH3HYKKVC0NPKMbYHEenRFt TNSwCFSKPI2MOStrCZF6YLRfodIyvMFeRCvwUN2URZCvyyMcKOAbYNKUJXn+Nn6ZHY2xu7WeTZh3IoWs PQ5pol8TSHnOEaCoL7C5qPNxD3P5SJzbYh2CMTCkHC EeXVvoGWXSRBxbJM4JZX7lhuE0SO6TlRZbWLJuSVXqiDTdNRi6I15apOMwCAsaNZ6RXBD+Luz+Pg0KIC UeTTXaJAVqGxLeQFTLCwCuK3XzW8UBw9ZmL1CbNP38gRvtyyAuOXomNZ0HBQ8dOUWiQVKEWF6HgUHkhU 8jkeA3IAVdVYQBMpEqQ27ggAVxECZlYBZwBJItFt6U ITDhY5XtexByjXqcmpGtEGXfZEWYSM1XVCnxggTbkOEaaBhgSR21jQfuTF0AQz2JVeSaKS1mxk6KsMKw Pp3IXZL4HO5VVETyXDCgQVOoIWQ7MWVuWiHiPNzbTFCjRMWgIVF1JQZqJIKpFY6JBzMeMRVaTEH0LErt NDAwUXWqvz7XHUWwLJF1EzPoSYIeUERuAQJmHEqqKJ OdDMTrHHN5XDClFTAiOJ7LZfAiAVIfXOJ0UNNfMMYoGXOyjn8PIJGwCCGuLXO8UMGuQPYsOLSeCQdnLP SfWGE9TRr4LPBzGKYvTM3EUaNjUFKcONb1IDWgMIMkIAYdie6VGUTpZPXdLEfxFTDoFISjLUQsIAhbVR FxOLIjNIE2BMFnKUIrNM6KGeBgKEAfQNVnFDvfUKRw FFTxsg2ONKLvABXzJGQ0MFVxTLDeTJRpAGufGEDtPSX1YGB2PAHmNXDzBB0WGpDcIUIbDKbwNVRxPFGs ZTRtdz6KUVQrHBNoVbHfHxCeZPWhPNUgWAvuQXAuJIIlEbZnUEGzNMIhSU6AVySeUCZsKcA0HjGnPJBq BSRiov7NLBSwDUOoLnC1YzNjDQEtIAVjPVfmVYYoGE A7HMY3HEBuCCBkAJ4TQrUuWHAjTjtqXfCeXLVmEQRoxm7BPGIjCOEcPDAgLqCaHZGoSLCeXUgvDRBtGH U5YVP8HXQoDHSgKA3ZCqYbOJJeWho8KhonBUAeUCJthq0VUSIlJAOsORg5LPThXOHtFEPpWIdhSKMdTY XgDDY5LXSvBSXbKA6BNpIcLCKgGwLwPSNmAMAtMBBs hy8ZSCLjYZYnHDGeMNUhQPZfEAVvHHbcDVDbCRHdSHW8ABLdSUZjIG9IUkPcXAIfRdJpCqMhPBAeLLJo qc6JSMQeUPObEmI6UQUmEZNtFVFtZYcvVHFiEYRvSIF1DJItETUuPD1NBpOcVGIsNeB3VDsaGKBpAENk hf7ZYEHhNAHwUae2GECvPPGhSZPyYNooVEDxDQK3Cr dwYUXjQXTwFP7IHsGzXLBuPCH9FPGhPWFqLPEwmj8FVZMxONS8COthQXClYXBuDDYjCUhuGPWfOKE9NO V4GMBlSSQrXI2GBuKiHCTmPLCmSRVzPVFoZJOohl2BMOVuMGT3IwLpGULdODXdRXTcKYenEFJvTLA4Qy TtOJQjFPGxCF7ISlJnBVCzOGz8XYDlLOJbJBJkko4C RLRvXON2GxZ0XYByGPEuIPPbOCxlHKScMJSwCoc3ARSqYCUfPX1JFvWmXEQmODW2OSTcZMWdOQKsjh0C WNEhCXA0HtW3DRPoYUSbTSLrHOyeCLYlKVXcOkd6GJRrJZVbNH9OInGsFYLoIIXbKmYiDMByMOTiff4T NVQlEBD7MXYxZFRsSIGdMEChNCtmPGXzTUZ1HFj1UY ZyLLYeEU4WTfCgATLyJWHiUEIwSCOoAXPyqu8ZOKNoDEU7EdL9IhNmFJTcSIOdSUyjPIOuMFU0TuDdRB EgPMLdQL2FJjZjCNXiUEN9TwegRSWaUVBvue4InLZiwDbyhe0CBLsVYa9ZtWucCFB0VLzpTv7yiEA9Lo KqPUUZQr7IdoKeNMYaPRXKBTpzZSVkPTD7CCUnEaJv PVtjRfOhIoIoBHYkEJPkL8V9Rcp3GHYrDoI4DgYuMEA7YUTfXzIeKUFyWQZ4UBL1CiZ3GLmeHGJjKTD+ ZI3hBWe+Tk9No8BahqF9ypUnSNs3RbPiUL4XORFBA4WPMm== ID Date Data Source [id number] 08/26/2020 02:49:08 PM EDT [facility] Name Value Range Interpretation Code Description Data [place]ira rce(s) Supporting Document(s) History and Physical [facility] VWKMQu0hTyDZQjDe45/AKMlxKCYio2ZaYKlkMCg9MBruEIRzW4LzSIJ9nU8mZWD7PWkDJpGgSdGyJfDj lbm [file] DQogICAgICAgICAgICAgICAgICAgICAgICAgICAgIC AgICAgICAgICAgICAgICAgICAgICAgICAgICAgICAgICAgICAgICAgICAgICAgICAgICAgICAgICAgIC AgICAgICAgICAgDQogICAgICAgICAgICAgICAgICAgICAgICAgICAgICAgICAgICAgICAgICAgICAgIC AgICAgICAgICAgICAgICAgICAgICAgICAgICAgICAg ICAgICAgICAgICAgICAgICAgICAgDQogICAgICAgICAgICAgICAgICAgICAgICAgICAgICAgICAgICAg ICAgICAgICAgICAgICAgICAgICAgICAgICAgICAgICAgICAgICAgICAgICAgICAgICAgICAgICAgICAg ICAgDQogICAgICAgICAgICAgICAgICAgICAgICAgIC AgICAgICAgICAgICAgICAgICAgICAgICAgICAgICAgICAgICAgICAgICAgICAgICAgICAgICAgICAgIC AgICAgICAgICAgICAgDQogICAgICAgICAgICAgICAgICAgICAgICAgICAgICAgICAgICAgICAgICAgIC AgICAgICAgICAgICAgICAgICAgICAgICAgICAgICAg ICAgICAgICAgICAgICAgICAgICAgICAgDQogICAgICAgICAgICAgICAgICAgICAgICAgICAgICAgICAg ICAgICAgICAgICAgICAgICAgICAgICAgICAgICAgICAgICAgICAgICAgICAgICAgICAgICAgICAgICAg ICAgICAgDQogICAgICAgICAgICAgICAgICAgICAgIC AgICAgICAgICAgICAgICAgICAgICAgICAgICAgICAgICAgICAgICAgICAgICAgICAgICAgICAgICAgIC AgICAgICAgICAgICAgICAgDQogICAgICAgICAgICAgICAgICAgICAgICAgICAgICAgICAgICAgICAgIC AgICAgICAgICAgICAgICAgICAgICAgICAgICAgICAg ICAgICAgICAgICAgICAgICAgICAgICAgICAgDQogICAgICAgICAgICAgICAgICAgICAgICAgICAgICAg ICAgICAgICAgICAgICAgICAgICAgICAgICAgICAgICAgICAgICAgICAgICAgICAgICAgICAgICAgICAg ICAgICAgICAgDQogICAgICAgICAgICAgICAgICAgIC AgICAgICAgICAgICAgICAgICAgICAgICAgICAgICAgICAgICAgICAgICAgICAgICAgICAgICAgICAgIC TlZAUyODPkQMDgHDOzCMNfFVDpDRp5P8qsEOToIDDvFY0cEJi1Yl2+CNeETqJfXMM0ylEurW4PCS5it5 BhQMrjGLXny2SxGNu7IF7TWJGwQUrvVR7SQLbrtq7F MJEiXVXzgGBUn1ypCkOeLGN3VDFhVhwiTR5PFBGjD0bjwyYySFTcAWCXMEfkUDXKMRauAWFRWETzXXVd VdBfRIhsTE5Kf4UgfNF1JRf+Ge5MBV6kz5TdOTytWNQbBH2rsw6OGUxGWuNsY4OumwS4CIE7UWUaEp2V DDJfGVIhfEWpSOHnYPJMXqNcL1MbhC22YSVKLp4+DQ asgmAnIwfLMvE6CCTib4QwPEq1WZ1HXIEeISo0eQKkYFYZGZF5CHDpZI5gJLXSfNTnCEVrJOQNPWZ5KU iuUO2jDTCvJSHxDiZ3FDSRMY8WXVUcLIRkdOEfOFIgVNPOAW8MDAdwWUF5SNXzjgGopYHfIEjlRT9LQC JlbnQgMzQgMCBSDQo+Ax6CQZ6qp1FbQXpoBqOtHU4t mk7HUGcBTaWyA2N1pKRxM8I0XXppOj8TIGVjJNEpIuKpBGYZAKtnLT8ZQL9jotH6OO2MnUVeWHGdNQAa sAZsPFe3M82vkRGhEJjsBW9QJCP+Luz+Hn2BESWfLGJnORWyZgCjQUZUKxAbM9DgT5ZHv2ChH8MlUW38 tLdrviNoEBdiFI9ORY8fRAMkNIKRJT2ItTKkzC7ixv NpWBPzVNOJUwDlS01glIRnNISnQNUvRFSxNh1HRONkE4IwvoDtkWxbnrCxMXBwFMQIHP0YFIkuleXbcS MllUibZF18kBbyVI6ETq8ARqKuBH1ypn7KdXZwAs9ZWUGoGb0DMFQlVMRvGCNjPGM5OCZuVhIgBHfcNA NeCXZyEQP6TIMwQLQpXU2YQyKbPFTsFhJ4LeksGVUu SHWvqb2LWXPcGLTqJeC3RkTaFJXqWQJyXTocZXTbMOHoLLK7MTRzUPXhBN9KSpQfSOSuHHV7DgxdRUHn OWEeop3MVUQoPCAsGnSeAtBwFERaJYIbXHenLFAdEQP9HHD7VREsRNJrRA2DMxQpVENiXCC5AiKrBATo DYTrsn0WQZXcVUDoQEQ4VnLiEEFoEFRlEWltFTHzPM X8NPTcFYZuNEVvRJ7VDaYbKFYcQJS7PWKpVWFlMNSwcq9BOKTdNSQrHLf0KkWyMEZaIAKuLIwcNKIkCU EtROOlJHTtEEDbMN8JEpWvGYCoGZUrZKvrLPMpRBZirr2IPPDdAPZtLpL8IvCtSRCmRZCqJDojUWOiWX F1QgPxZDNmZEVnQY5UTqTuJEMiKVM0TQHcWFTdOHKt er4VYHKwNUIjKJO5TFXfUGFrUUMgYAawHKKcPTS8EpSwXLLdGBXrCU3AAhHkRPTvHEL1EMqqSAUuEMPm hz7FYCFpUKPjZPp8GKHjCXQqHPYpAAsnPCLjDPF8TeF8OUVwYVSbDR4GGsJoMVSaKhy5PWRkHYIbXZVj rp3OCTIzBDBdCix9FuRqPJQrZEEbPYljQPGyUMB9RQ PvRXKrCOKjAS5EWzMjXWYgAcqaCpwuOCOySDTqyy1INESzXHNpGEGiQbYmSLWeWDUyUUywCGAmGJF7RS QsHVHeYDEdZS9RSaSoBJPhFzd9DCkfSEOlYFOmrc3OFKKwYYLuBQJiZULsXLHkXNQnBWcaZUMcOYQgNz C5BBVoNLNmNO3CItIqYPVyRkG6PYxxDKDrVGUemo1A QBVkJELqWBA2VnKfJGDuBQQhAEzfJPTvTMVwTZWcVWLuLHZtCO6PMgBoJOCtKyX0JYKeFQXpOBVpry6A IBQoACMhSkAhPKKjCBRpYHDoFOc6kcLrpJGeNHz7FU4PO8CgadKuNrkAWf8Mz881VBL8JBZvHf0OX5hg Ho5pWGShZWDFXz7UVEz1V8J6WIPjVWFkLcE0PuZvUR LwAZK2EnhjYcf5A7A5SYA+XQk2HzubT3TfJER4Ull5XJUqPrB9SQukGZN2ZEutDjIiEf7kBZBBPn8+DQ yzzHMbdLmeSOOCRzZjGpU3BRvjBNGRBp3P ID Date Data Source [id number] 08/25/2020 03:29:00 PM EDT [facility] Name Value Range Interpretation Code Description Data [place]ira rce(s) Supporting Document(s) SARS coronavirus 2 RNA [Presence] in Res piratory specimen by MARK with probe detection NEGATIVE [facility] This lab was ordered by [facility] a nd reported by [facility]. ID Date Data Source [id number] 08/17/2020 03:58:41 PM EDT [facility] Name Value Range Interpretation Code Description Data [place]ira rce(s) Supporting Document(s) Discharge Summary [facility] VYGDUc3qEoNSQkFv35/COGslYXVqk8QdIQcjHSl1LVrbLIPbX5CtVLV2gO5aBNP4CLeNIiDsKbRsLfAw lbm [file] ICAgICAgICAgICAgICAgICAgICAgICAgICAgICAgIC QlBMAkOHQdNNQoCHJbZWEjPSAuDWPnWMEcGPWlMVInOGXeAQFzMO4FQZEgCQRpHFPrDMZxTJUhCNWxAP AgICAgICAgICAgICAgICAgICAgICAgICAgICAgICAgICAgICAgICAgICAgICAgICAgICAgICAgICAgIC MjQGJyPGVuAFZkQVLpCVNvKSUjNE5HNJUuQDRkLOSa ICAgICAgICAgICAgICAgICAgICAgICAgICAgICAgICAgICAgICAgICAgICAgICAgICAgICAgICAgICAg TESvWCIvXDZdAWBdCQIrUZKnBXPnAPQdKREwONTnMJ4KFMQqWZZaKMUjJMCaSVZeRNCgYIVzLUIwOXSk ICAgICAgICAgICAgICAgICAgICAgICAgICAgICAgIC NhEQKgEWLzIIKpMQSbJXOgIVEpFHOmEHQyQPUiIPWnVTPiHDZgLRQdJP7RQGTzKIAgQETcXSCvPZQbWT AgICAgICAgICAgICAgICAgICAgICAgICAgICAgICAgICAgICAgICAgICAgICAgICAgICAgICAgICAgIC CfGEUmQONpTLSqMVTvVZHmSFZbSUIrCT7RMVOfLAQy ICAgICAgICAgICAgICAgICAgICAgICAgICAgICAgICAgICAgICAgICAgICAgICAgICAgICAgICAgICAg ITExYPPhTPCfAIQuNVZwXYKjAEWxWILxJCKlRCYqNYLdTS4ABMDgEMNpNXFkXBTeDZMlKSKuFKFmYTLi ICAgICAgICAgICAgICAgICAgICAgICAgICAgICAgIC LyHEIaEKNcAXTnDSIxTODsLSBfLFUzTZTcAPHpFDCwUILpLBPhFQTuRQXnKD5BMWAuMHJhTNOgCDMrOZ AgICAgICAgICAgICAgICAgICAgICAgICAgICAgICAgICAgICAgICAgICAgICAgICAgICAgICAgICAgIC AxMZYfQAKkWDGiLDCnPBFbFCIwDITzAIHfZA8XXKBx ICAgICAgICAgICAgICAgICAgICAgICAgICAgICAgICAgICAgICAgICAgICAgICAgICAgICAgICAgICAg XXToJYWrPHOgPHXtCQMgRODyVUWaYVZzCPJpKHKrGMCqCVXoGJ8GEBFbPRStXZVrRJMjGBZnGQHgPDHa ICAgICAgICAgICAgICAgICAgICAgICAgICAgICAgIC ZzVOEqULRwOUWpDSIrIGTvTFHoVKFhCKIwVCCbVHNyVMWaFQBiWQTbOROeYUXtZW0EKC75eBVhl4G3WQ XtHK4dbft/Jh3CBEqpahHshYZiXE2LCfCoRD2vrw8HUxUoRF2ieg6ENIrKRrUkY8Y5bDOsACXvWRARTi XrT25wVYxgSg69FGdgVOOfMfCgCLy6Yx8CGaPkO2sq SDQdJdC9TZNeCyT9RAXtFtT1YFXqVnBfAFQwMXUgDEJrWWWCTAK6LLZrArLoOfRkWDWbQKdpGBONGKLl TURcHvExCtSaDRDzTF5AGEYwH690esCnMCGORv4+DTowtlZxMzuIFiO8PNYku7XcWKh3MQ9FPUDbNhjn v8RzFJajCGKCDFfhBV4NJII4DZN7LRCgSt0VDGEoJ8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 seed spices, garlic, gravy pickles, highly seasoned saladdressings [employer]. [address] [place] [address]. All rights reserved. This information is not intended as asubstitute for professional medical care. Always follow your healthcare professional's instructions.Clear Liquid Diet 7 General Instructions [facility] Department [address] [place] [address] Phone #: zcq- [phone] 06/16/2020 16:20 Patient: BRUNA LEE Sex: F [...] grocery stores. You don't need aprescription. [employer]. [address] [place] [address]. All rights reserved. This information is not intended as asubstitute for professional medical care. Always follow your healthcare professional's instructions. You have been given the following additional information: Abdominal Pain, Unknown Cause, (Female) Diet, [place] (Adult) Clear Liquid Diet 8 General Instructions [facility] Department [address] [place] [address] Phone #: ext- [phone] 06/16/2020 16:20 Patient: BRUNA LEE Sex: F : 1985 Age: 34yNo strenuous activity until better. Rest at home for one days.(Electronically signed by RASHID Sanchez 06/16/2020 21:17) Name Value Range Interpretation Code Description Data [place] rce(s) Supporting Document(s) ID Date Data Source [id number] 06/16/2020 04:22:00 PM EDT [facility] 1 Clinical Report - Nurses [facility] Department [address] [place] [address] Phone #: ext- [phone] 06/16/2020 16:20 Patient: BRUNA LEE Sex: F : 1985 Age: 34yTRIAGEArrived by EMS. Historian: patient. Unaccompanied. ( went to [facility] today for feeling like she had beenpoisoned, she thinks her mother and sister poisoned, feels like she is going down hill with her health, shestates she is suing [facility] because they are not listening to her, taken away from [facility] by polic).Acuity: LEVEL 4.Chief Complaint: BIZARRE BEHAVIOR.Alert.Onset. (1 year but getting worse).Treatment TOY MECHANIC:Took Tylenol. (2 hours ago).SEPSIS SCREEN: SIRS SCREEN NEGATIVE. SEPSIS SCREEN NEGATIVE. No suspected or confirmedsigns of infection present. --16:29 06/16/20 Ruthie Espinal R.N.16:21 06/16/20. BP: 119/74. MAP: 89. HR: 87. RR: 16. O2 saturation: 100%. Temp: 98.7 F. Pain levelnow: 12/05. --16:29 06/16/20 Ruthie Espinal R.N.Weight: 70.7 kg stated. Height/Length: 60 inches Per Patient. BMI: 30.4. --16:21 06/16/20 Ruthie Espinal R.N.MedicationsAmitriptyline HCl Oral. clonazePAM Oral (new rx starts tomorrow). Gabapentin Oral. Keppra Oral. RisperDAL Oral. Stomach pill, name unknown. Strattera Oral. Suboxone Sublingual (Film 8-2 mg), daily. --16:26 06/16/20 Ruthie Espinal R.N. Latuda Oral. --16:26 06/16/20 Ruthie Espinal R.N. PriLOSEC Oral. --16:26 06/16/20 Ruthie Espinal R.N.AllergiesPenicillins.(hives)Sulfa Antibiotics. --16:26 06/16/20 Ruthie Espinal R.N.PROBLEMS:Peptic Ulcer Disease. 2 Clinical Report - Nurses [facility] Department [address] [place] [address] Phone #: ext- [phone] 06/16/2020 16:20 Patient: BRUNA LEE Sex: [...] completed. No skin integrity riskidentified. --16:29 06/16/20 Ruhtie Espinal R.N.19:07 06/16/20.SOCIAL HX: Smoker - current status unknown. --03:08 06/17/20 Jovan Maldonado R.N. 3 Clinical Report - Nurses [facility] Department [address] [place] [address] Phone #: ext- [phone] 06/16/2020 16:20 [id number] Sex: F : 1985 Age: 34y Interventions [...] Moreau, RN 4 Clinical Report - Nurses [facility] Department [address] [place] [address] Phone #: ext- [phone] 06/16/2020 16:20 Patient: [...] Patient verbalized understanding. Written instructions provided in Ukrainian. The patient was discharged by the physician captain's assistant. She was discharged home. She left [...] rce(s) Supporting Document(s) ID Date Data Source [id number] 06/16/2020 04:22:00 PM EDT [facility] 1 Clinical Report - Physicians/Mid Levels [facility] Department [address] [place] [address] Phone #: ext- [phone] 06/16/2020 16:20 Patient: [...] by a health care provider (went to [facility] today twice, escorted off property [...] Pharyngitis. 2 Clinical Report - Physicians/Mid Levels [facility] Department [address] [place] [address] Phone #: ext- [phone] 06/16/2020 16:20 Patient: [id number] Sex: F : 1985 Age: 34y Polysubstance [...] Reflexes normal. 3 Clinical Report - Physicians/Mid [facility] Emergency Department [address] [place] [address] Phone #: ext- [phone] 06/16/2020 16:20 Patient: BRUNA LEE Sex: F [...] Beta-HCG, Quant Serum: (JENN: 06/16/2020 18:16) ( [facility] [place] 19:25) Final results Test Result Flag Units (Reference) HCG QUANT <0.5 mIU/mL Interpretation: Less than 5 mU/mL: Negative 6-10 mU/mL: Borderline (suggest repeat in 48 hours) >10: Positive Approx HCG range (mU/mL) Weeks post LMP 5.4-708 mU/mL 3-4 Weeks 217-14354 mU/mL 5-6 Weeks 4059-219438 mU/mL 7-8 Weeks 01294-791018 mU/mL 9-10 Weeks 33315-14856 mU/mL 12-14 Weeks 15575-61227 mU/mL 15-16 Weeks 8240-58364 mU/mL 17-18 Weeks CBC w Diff: (JENN: 06/16/2020 18:16) ( [facility] 06/16/2020 19:06) Final results Test Result Flag [...] PANEL 4 Clinical Report - Physicians/Mid Levels [facility] Department [address] [place] [address] Phone #: ext- [phone] 06/16/2020 16:20 Patient: BRUNA LEE Sex: F [...] Male GFR Interprentation 20-49 yrs >60 mL/min Wmular43-74 yrs >56 mL/min Normal 60-69 yrs >49 mL/min Normal 70-79yrs>42 mL/min Normal 80 and above >35 mL/min Normal Female GFRInterpretation 20-39 yrs >60 mL/min Normal 40-49 yrs >58 mL/minNormal 50-59 yrs >51 mL/min Normal 60-69 yrs >45 mL/min Zkiiyq63-17 yrs >39 mL/min Normal 80 and above [...] (0.2 - 2.2)Lipase: (JENN: 06/16/2020 18:16) ( MsgRcvd 06/16/2020 19:11) Final results Test Result Flag Units (Reference) LIPASE 13 U/L (13 - 60)Magnesium: (JENN: 06/16/2020 18:16) ( IdgRcvd 06/16/2020 19:11) Final results Test Result Flag Units (Reference) MAGNESIUM 2.2 MG/DL (1.7 - 2.2)Acetaminophen Level: (JENN: 06/16/2020 18:16) ( [facility] [place] Final results Test Result Flag Units (Reference) ACETAMINOPHEN 8.7 UG/ML (0.0 - 30.0)Salicylate Level: (JENN: 06/16/2020 18:16) ( [facility] [place]16[place] 19:25) Final results Test Result Flag Units (Reference) 5 Clinical Report - Physicians/Mid Levels [facility] Emergency Department [address] [place] [address] Phone #: ext- [phone] 06/16/2020 16:20 Patient: BRUNA LEE Sex: F : 1985 Age: 34y SALICYLATE <0.3 L mg/dL (2.0 - 20.0) PT/PTT: (JENN: 06/16/2020 18:16) ( [facility] 06/16/2020 19:26) Final results Test Result Flag Units (Reference) PROTIME 12.5 SECONDS (11.0 - 15.5) INR 0.89 L (0.93 - 1.23) PTT 39.8 H SECONDS (24.8 - 36.7) \\BLDo\\INR INTERPRETATION\\BLDx\\ Therapeutic range for Coumadin and related oral anticoagulants. - International Normalized Ratio (INR): 2.0 - 3.0 for Venous Thrombosis, Pulmonary Embolus, Tissue heart valves, Acute MA Atrial Fibrillation, Valvular heart disease and recurrent Systemic Embolism. -International Normalized Ratio (INR): 2.5 - 3.5 for Mechanical Prosthetic valve. Troponin-T: (JENN: 06/16/2020 18:16) ( [facility] 06/16/2020 19:25) Final results Test Result Flag Units (Reference) TROPONIN T <0.01 NG/ML (0.00 - 0.10) TROPONIN T0.1 ng/ml Recommended as the clinical threshold value forTroponin T. Urinalysis: (JENN: 06/16/2020 18:46) ( [facility] 06/16/2020 19:24) Final results Test Result Flag [...] Venous Blood Gas: (JENN: 06/16/2020 18:16) ( [facility] 06/16/2020 18:40) Final results Test Result Flag [...] with grossly normal labs, normal activity on school bus monitor, othervitals WNL throughout ED course, resting comfortably in ED exam rm bed throughout ED course, no 6 Clinical Report - Physicians/Mid Levels [facility] Emergency Department [address] [place] [address] Phone #: ext- [phone] 06/16/2020 16:20 Patient: [...] appointment. 7 Clinical Report - Physicians/Mid Levels [facility] Emergency Department [address] [place] [address] Phone #: ext- [phone] 06/16/2020 16:20 Patient: [...] Name Value Range Interpretation Code Description [facility] Supporting Document(s) ID Date Data Source [id number] 06/16/2020 07:31:00 PM EDT [facility] Name Value Range Interpretation Code Description Data [facility] Supporting Document(s) DRUG SCREEN URINE [facility] URINE DRUG SCREEN Amphetamine [Presence] in Urine by Screen method PRESUMP POS ZAYNAB L: NEGATIVE [facility] BARBITURATES NEGATIVE NORMAL: NEGATIVE [facility] BENZO NEGATIVE NORMAL: NEGATIVE [facility] COCAINE PRESUMP POS NORMAL: NEGATIVE A [facility] Tetrahydrocannabinol [Presence] in Urine NEGATIVE NORMAL: NEGATIVE [facility] OPIATES NEGATIVE NORMAL: NEGATIVE [facility] Phencyclidine [Presence] in Urine by Screen method NEGATIVE NOR MAL: NEGATIVE [facility] \\BLDo\\URINE DRUG SCR EEN INTERPRETATION\\BLDx\\ THE CUTOFFF LEVELS FOR DETECTION ARE FOLLOWS: AMPHETAMINES 1000 ng/ml BARBITUARATES 200 ng/ml BENZODIAZEPINES 100 ng/ml THC 50 ng/ml PHENCYCLIDINE 25 ng/ml OPIATES 300 ng/ml COCAINE 300 ng/ml ALL POSITIVES ARE CONSIDERED PRESUMPTIVE POSITIVE CONFIRMATION WILL BE PERFORMED AT PHYSICIAN REQUEST. ID Date Data Source [id number] 06/16/2020 07:24:00 PM EDT [facility] Name Value Range Interpretation Code Description Data [place] [facility](s) Supporting Document(s) [facility]YS[facility] SOURCE Clean Catch [facility] ital COLOR Yellow NORMAL: Yellow [facility] ospital CLARITY Clear NORMAL: Clear [facility] Ho spital Specific gravity of Urine by Test strip 1.010 1.001 - 1.030 [facility] pH 7 5 - 9 [facility] Glucose [Mass/volume] in Urine by Test strip NORM NORMAL: Negat [facility] Bilirubin.total [Presence] in Urine by Test strip NEG NORMAL: Negative [facility] Ketones [Presence] in Urine by Test strip NEG NORMAL: Negative [facility] Protein [Mass/volume] in Urine by Test strip NEG NORMAL: Negat [facility] Nitrite [Presence] in Urine by Test strip NEG NORMAL: Negative [facility] BLOOD NEG NORMAL: Negative [facility] Leukocyte esterase [Presence] in Urine by Test strip NEG ZAYNAB L: Negative [facility] Urobilinogen [Mass/volume] in Urine by Test strip NOR less kenna n 1.0 mg/dL [facility] MICROSCOPIC Not Indicate [facility] H ospital ID Date Data Source [id number] 06/16/2020 07:25:00 PM EDT [facility] Name Value Range Interpretation Code Description Data [place] r[facility](s) Supporting Document(s) Prothrombin time (PT) 12.5 SECONDS 11.0 - 15.5 [facility] INR in Platelet poor plasma by Coagulation assay 0.89 0.93 - 1. 23 L [facility] aPTT in Blood by Coagulation assay 39.8 SECONDS 24.8 - 36.7 H [facility] \\BLDo\\INR INTERPRETATION\\BLDx\\ Therapeutic range for Coumadin and related oral anticoagulants. - International Normalized Ratio (INR): 2.0 - 3.0 for Venous Thrombosis, Pulmonary Embolus, Tissue heart valves, Acute MA Atrial Fibrillation, Valvular heart disease and recurrent Systemic Embolism. - International Normalized Ratio (INR): 2.5 - 3.5 for Mechanical Prosthetic valve. ID Date Data Source [id number] 06/16/2020 07:25:00 PM EDT [facility] Name Value Range Interpretation Code Description Data [place] r[facility](s) Supporting Document(s) Choriogonadotropin.intact [Units/volume] in Serum or Plasma <0.5 mIU/ mL [facility] Interpr etation: Less than 5 mU/mL: Negative 6-10 mU/mL: Borderline (suggest repeat in 48 hours) >10: Positive Approx HCG range (mU/mL) Weeks post LMP 5.4-708 mU/mL 3-4 Weeks 217-38350 mU/mL 5-6 Weeks 4059-858994 mU/mL 7-8 Weeks 69892-232673 mU/mL 9-10 Weeks 73778-25311 mU/mL 12-14 Weeks 00510-63482 mU/mL 15-16 Weeks 8240- 71861 mU/mL 17-18 Weeks ID Date Data Source [id number] 06/16/2020 07:25:00 PM EDT [facility] Name Value Range Interpretation Code Description Data [place] r[facility](s) Supporting Document(s) TROPONIN T <0.01 NG/ML 0.00 - 0.10 [facility] ospital TROPONIN T0.1 ng/ml Recommended as the c linical threshold value forTroponin T. ID Date Data Source [id number] 06/16/2020 07:25:00 PM EDT [facility] Name Value Range Interpretation Code Description Data [place] r[facility](s) Supporting Document(s) SALICYLATE <0.3 mg/dL 2.0 - 20.0 L [facility] pital ID Date Data Source [id number] 06/16/2020 07:25:00 PM EDT [facility] Name Value Range Interpretation Code Description Data [place] r[facility](s) Supporting Document(s) COMPREHENSIVE METABOLIC PANEL [facility] COMPREHENSIVE METABOLIC PANEL Sodium [Moles/volume] in Serum or Plasma 139 mEq/L 134 - 153 [facility] Potassium [Moles/volume] in Serum or Plasma 4.3 mEq/L 3.6 - 5.0 [facility] Chloride [Moles/volume] in Serum or Plasma 100 mEq/L 98 - 107 [facility] Carbon dioxide, total [Moles/volume] in Serum or Plasma 26 MEQ/L 22 - 30 [facility] Glucose [Mass/volume] in Serum or Plasma 76 MG/DL 70 - 99 [facility] BUN 9 MG/DL 7 - 21 [facility] al Creatinine [Mass/volume] in Serum or Plasma 0.5 MG/DL 0.7 - 1.5 L [facility] BUN/CREAT 18 8 - 27 [facility] Protein [Mass/volume] in Serum or Plasma 8.0 G/DL 6.3 - 8.2 [facility] Albumin [Mass/volume] in Serum or Plasma 5.0 G/DL 3.9 - 5.0 [facility] Globulin [Mass/volume] in Serum by calculation 3.0 GM/DL 2.4 - 3.2 [facility] A/G RATIO 1.7 0.8 - 2.0 [facility] Calcium [Mass/volume] in Serum or Plasma 10.6 MG/DL 8.4 - 10.2 H [facility] Bilirubin.total [Mass/volume] in Serum or Plasma <0.7 MG/DL 0.2 - 1.3 [facility] Alkaline phosphatase [Enzymatic activity/volume] in Serum or Plasma 86 U/L 38 - 126 [facility] Aspartate aminotransferase [Enzymatic activity/volume] in Serum or Plasma 30 U/L 5 - 40 [facility] Alanine aminotransferase [Enzymatic activity/volume] in Seru m or Plasma 25 U/L 7 - 56 [facility] Anion gap 3 in Serum or Plasma 13.0 mmol/L 8.0 - 16.0 [facility] AGE 34 [facility]rs [facility] NON-AA GFR >60 mL/min [facility] ital AFR AMER GFR >60 mL/min [facility] Ho spital Male GFR In terprentation [...] >32 mL/min Normal ID Date Data Source [id number] 06/16/2020 07:11:00 PM EDT [facility] Value Range Interpretation Code Description Data [place] r[facility](s) Supporting Document(s) Acetaminophen [Presence] in Urine 8.7 UG/ML 0.0 - 30.0 [facility] ID Date Data Source [id number] 06/16/2020 07:11:00 PM EDT [facility] Name Value Range Interpretation Code Description Data [place] r[facility](s) Supporting Document(s) Magnesium [Mass/volume] in Serum or Plasma 2.2 MG/DL 1.7 - 2.2 [facility] ID Date Data Source [id number] 06/16/2020 07:11:00 PM EDT [facility] Value Range Interpretation Code Description Data [place] r[facility](s) Supporting Document(s) Lipase [Enzymatic activity/volume] in Serum or Plasma 13 U/L 13 - 60 [facility] ID Date Data Source [id number] 06/16/2020 07:11:00 PM EDT [facility] Value Range Interpretation Code Description Data [place] r[facility](s) Supporting Document(s) Ethanol [Moles/volume] in Blood <10.0 MG/DL [facility] ALCOHOL % 0.01 % 0.00 - 0.01 [facility] ital *FOR MEDICAL PURPOSES ONLY * ID Date Data Source [id number] 06/16/2020 07:06:00 PM EDT [facility] Value Range Interpretation Code Description Data [place] r[facility](s) Supporting Document(s) CBC W/AUTOMATED DIFF [facility] COMPLETE BLOOD COUNT Leukocytes [#/volume] in Blood by Automated count 6.8 10^3/uL 4.2 - 1 1.0 [facility] Erythrocytes [#/volume] in Blood by Automated count 4.84 10^6/uL 4. 20 - 5.40 [facility] Hemoglobin [Mass/volume] in Blood 14.3 g/dL 12.0 - 16.0 [facility] Hematocrit [Volume Fraction] of Blood by Automated count 43.3 % 3 7.0 - 47.0 [facility] Erythrocyte mean corpuscular volume [Entitic volume] by Auto mated count 89.5 fL 81.0 - 101 [facility] Erythrocyte mean corpuscular hemoglobin [Entitic mass] by Automated count 29.5 pg 27.0 - 34.0 [facility] Erythrocyte mean corpuscular hemoglobin concentration [Mass/volume] by Automated count 33.0 g/dL 31.0 - 36.0 [facility] Erythrocyte distribution width [Ratio] by Automated count 13.2 % 11.5 - 14.5 [facility] Platelets [#/volume] in Blood by Automated count 340 10^3/uL 150 - 45 0 [facility] Platelet mean volume [Entitic volume] in Blood by Automated count 9.9 fL 7.4 - 10.4 [facility] Neutrophils/100 leukocytes in Blood by Automated count 60.0 % 37. 0 - 80.0 [facility] Lymphocytes/100 leukocytes in Blood by Manual count 29.5 % 25.0 - 40.0 [facility] Monocytes/100 leukocytes in Blood by Automated count 7.4 % 3.0 - 8.0 [facility] Eosinophils/100 leukocytes in Blood by Automated count 2.2 % 0.0 - 7.0 [facility] Basophils/100 leukocytes in Blood by Automated count 0.6 % 0.0 - 2.5 [facility] %IG 0.3 % 0.0 - 0.0 [facility] %NRBC 0.0 % 0.0 - 0.0 [facility] al Neutrophils [#/volume] in Blood by Automated count 4.05 10^3/uL 2.00 - 6.90 [facility] Lymphocytes [#/volume] in Blood by Automated count 1.99 10^3/uL 0.60 - 3.40 [facility] Monocytes [#/volume] in Blood by Automated count 0.50 10^3/uL 0.00 - 0.90 [facility] Eosinophils [#/volume] in Blood by Automated count 0.15 10^3/uL 0.00 - 0.70 [facility] Basophils [#/volume] in Blood by Automated count 0.04 10^3/uL 0.00 - 0.20 [facility] #IG 0.02 10^3/uL 0.00 - 0.10 [facility] #NRBC 0.00 10^3/uL 0.00 - 0.00 [facility] o[facility] MANUAL DIFF NOT INDICATED [facility] RBC MORPH NOT INDICATED [facility] spital ID Date Data Source [id number] 06/16/2020 06:40:00 PM EDT [facility] Name Value Range Interpretation Code Description Data [place] r[facility](s) Supporting Document(s) pH of Serum or Plasma 7.37 7.32 - 7.43 [facility] pCO2 V 46.9 mm/HG 38.0 - 51.0 [facility] pO2 V 55.8 mm/HG 30.0 - 55.0 H [facility] Bicarbonate [Moles/volume] in Venous blood 26.5 meq/L 22.0 - 29.0 [facility] TCO2 V 28.0 meq/L 22.0 - 29.0 [facility] Base excess in Blood by calculation 0.7 -2.0 - 2.0 [facility] O2 SAT V 87.7 % 40.0 - 85.0 H [facility] ital ID Date Data Source [id number] 06/16/2020 06:40:00 PM EDT [facility] Name Value Range Interpretation Code Description Data [place] r[facility](s) Supporting Document(s) Lactate [Moles/volume] in Serum or Plasma 2.1 MMOL/L 0.2 - 2.2 [facility] ID Date Data Source [id number] 06/02/2020 09:35:00 PM EDT [facility] Name Value Range Interpretation Code Description Data [place] r[facility](s) Supporting Document(s) SARS-CoV-2 (COVID 19) NEGATIVE - SARS-CoV-2 (COVID19) [facility] This lab was ordered by [facility] a nd reported by [facility]. ID Date Data Source [id number] 04/21/2020 05:41:00 PM EST [facility] Name Value Range Interpretation Code Description Data [place] r[facility](s) Supporting Document(s) SARS coronavirus 2 RNA [Presence] in Res piratory specimen by MARK with probe detection NEGATIVE [facility] This lab was ordered by [facility] a nd reported by [facility]. ID Date Data Source [id number] 04/10/2020 02:50:00 PM EST [facility] Name Value Range Interpretation Code Description Data [place] r[facility](s) Supporting Document(s) SARS coronavirus 2 RNA [Presence] in Res piratory specimen by MARK with probe detection POSITIVE [facility] This lab was ordered by [facility] a nd reported by [facility]. ID Date Data Source [id number] 04/09/2020 02:48:00 AM EST [facility] Name Value Range Interpretation Code Description Data [place] r[facility](s) Supporting Document(s) SARS COVID ANTIGEN POSITIVE [facility] This lab was ordered by [facility] a nd reported by [facility]. ID Date Data Source [id number] 04/09/2020 02:46:00 AM EST [facility] Name Value Range Interpretation Code Description Data [place] r[facility](s) Supporting Document(s) SARS COVID ANTIGEN POSITIVE [facility] This lab was ordered by [facility] a nd reported by [facility]. ID Date Data Source [id number] 03/04/2020 12:09:00 PM EST [facility] Name Value Range Interpretation Code Description Data [place] rce(s) Supporting Document(s) FAZAL DIRECT Negative Negative [facility] Performed at: RN - [facility] [address] [id number] Director: Elsa Garcia MD, Phone: [phone] ID Date Data Source [id number] 03/04/2020 12:05:00 PM EST [facility] Name Value Range Interpretation Code Description Data [place] r[facility](s) Supporting Document(s) FAZAL Direct Negative Negative [facility] ID Date Data Source [id number] 03/03/2020 08:50:00 AM EST [facility] ADD ON TEST Name Value Range Interpretation Code Description Data [place] r[facility](s) Supporting Document(s) RHEUMATOID FACTOR SCREEN NEGATIVE NEGATIVE [facility] ID Date Data Source [id number] 03/03/2020 08:37:00 AM EST [facility] ADD ON TEST Name Value Range Interpretation Code Description Data [place] r[facility](s) Supporting Document(s) FREE T4 1.0 ng/dL 0.76-1.46 [facility] ID Date Data Source [id number] 03/03/2020 08:37:00 AM EST [facility] ADD ON TEST Name Value Range Interpretation Code Description Data [place] r[facility](s) Supporting Document(s) TSH 0.422 uIU/mL 0.36-3.74 [facility] ID Date Data Source [id number] 03/03/2020 08:11:00 AM EST [facility] ADD ON TEST Name Value Range Interpretation Code Description Data [place] r[facility](s) Supporting Document(s) C REACTIVE PROTEIN 15.6 mg/L 0.0-3.0 [facility] ID Date Data Source [id number] 03/03/2020 08:11:00 AM EST [facility] ADD ON TEST Name Value Range Interpretation Code Description Data [place] r[facility](s) Supporting Document(s) GLUCOSE 85 mg/dL 74-106 [facility] BLOOD UREA NITROGEN 11 mg/dL 7-18 [facility] ital CREATININE 0.88 mg/dL 0.6-1.0 [facility] SODIUM 135 mmol/L 136-145 L [facility] POTASSIUM 4.1 mmol/L 3.5-5.1 [facility] CHLORIDE 99 mmol/L 98-107 [facility] CO2 26 mmol/L 21-32 [facility] CALCIUM 8.8 mg/dL 8.5-10.1 [facility] ANION GAP 10.0 mmol/L 5-12 [facility] GLOMERULAR FILTRATION RATE 74 mL/min [facility] GFR IS CALCULATED IN mL/min/1.73m2 ZAYNAB L FUNCTION: >90MILDLY DECREASED: 60-89MILDY TO MODERATELY DECREASED: 45-59 MODERATELY TO SEVERELY DECREASED: 30-44SEVERELY DECREASED: 15-29RENAL FAILURE: <15 AST 32 U/L 15-37 [facility] ALT 32 U/L 12-78 [facility] ALKALINE PHOSPHATASE 65 U/L 46-116 [facility] pital TOTAL BILIRUBIN 0.2 mg/dL 0.2-1.0 [facility] TOTAL PROTEIN 6.9 g/dl 6.4-8.2 [facility] ALBUMIN 3.9 gm/dL 3.4-5.0 [facility] ID Date Data Source [id number] 03/01/2020 05:46:00 PM EST [facility] Name Value Range Interpretation Code Description Data [place] rce(s) Supporting Document(s) CHOLESTEROL 193 mg/dL 0-200 [facility] TRIGLYCERIDES 86 mg/dL 0-150 [facility] LDL CHOLESTEROL 111 mg/dL 0-100 H [facility] HDL CHOLESTEROL 65 mg/dL 40-60 H [facility] CHOL/HDL RATIO 3.0 0.0-5.0 [facility] ID Date Data Source [id number] 02/29/2020 10:40:00 AM EST [facility] Name Value Range Interpretation Code Description Data [place] rce(s) Supporting Document(s) SARS coronavirus 2 RNA [facility] This lab was ordered by [facility] and reported by [facility]. ID Date Data Source [id number] 12/10/2019 11:15:00 AM EDT [address] [id number] NAME: BRUNA LEE#: [id number] PHYSICIAN: PRERNA RIOS MD ADM. DATE: 12/05/19ACCOUNT #: [id number] DISCH. DATE:DISCHARGE SUMMARYIDENTIFICATION: A 34-year-old female with schizoaffective disorder,polysubstance dependence.CHIEF COMPLAINT: "I don't know why I am here."REASON FOR ADMISSION: Post- overdose.HISTORY OF PRESENT ILLNESS: The patient was interviewed in ICU after sheoverdosed. The patient was seen in [facility] for a regularconsultation, she could [...] [place] time in our service with [...] ABUSE: None.SOCIAL HISTORY: The patient is from [place], did not finish high school.She was in [...] The patient was discharged with the medications Tpoebc49 mg p.o. daily, Neurontin 600 mg p.o. [...] be enrolled in outpatient chemical dependence in [place].MENTAL STATUS EXAMINATION: The patient is pleasant, cooperative. [...] Dictated: 12/10/2019 09:34:34Date Transcribed: 12/10/2019 10:15:05JV/Karen #: [id number]: 12/10/19 0934 Electronically SignedTRANS:12/10/19 1115 PRERNA RIOS MDTRANS BY:IATDAFUNMI SIGNED:12/10/19REPORT COPY TO: Name Value Range Interpretation Code Description Data [place] r[facility](s) Supporting Document(s) ID Date Data Source [id number] 12/10/2019 06:43:00 AM EDT [address] [id number] NAME: BRUAN LEE#: [id number] PHYSICIAN: PRERNA RIOS [facility] [id number] ADM. DATE: 12/05/19PATIENT : 89 DISCH. DATE: [...] follow-upappointmentDischarge InformationDISCHARGE INFORMATION* Thank you for choosing [facility] and allowing us toserve you* Our Goal is to provide the highest quality of care.* This discharge information is to help you better understand your diagnosisand medication* Avoid taking sznd-dts-gqtcofz medicines unless approved by your physician.* Take your medications as prescribed. DO NOT stop any medications unlessapproved first* Weigh yourself daily. Report any gain of 5 lbs in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 [id number] 12/04/2019 04:47:00 PM EDT [facility] l Name Value Range Interpretation Code Description Data [place] rce(s) Supporting Document(s) SALICYLATE 3.5 mg/dL 2.8-20.0 [facility] Hospital ID Date Data Source [id number] 12/04/2019 04:47:00 PM EDT [facility] l Name Value Range Interpretation Code Description Data [place] rce(s) Supporting Document(s) ETHYL ALCOHOL 0.00 % 0-0.01 [facility] ID Date Data Source [id number] 12/[facility] 04[facility]47[facility] Interpretation Code Description Data [place] rce(s) Supporting Document(s) ACETAMINOPHEN LEVEL < 2.0 mcg/mL 10-30 L [facility] ospital ID Date Data Source [id number] 12/04/2019 04:47:00 PM [facility] l Name Value Range Interpretation Code Description Data [place] rce(s) Supporting Document(s) GLUCOSE 81 mg/dL 74-106 [facility] BLOOD UREA NITROGEN 10 mg/dL 7-18 [facility] ital CREATININE 0.7 mg/dL 0.6-1.0 [facility] SODIUM 139 mmol/L 136-145 [facility] POTASSIUM 4.3 mmol/L 3.5-5.1 [facility] CHLORIDE 102 mmol/L 98-107 [facility] CO2 33 mmol/L 21-32 H [facility] CALCIUM 9.2 mg/dL 8.5-10.1 [facility] ANION GAP 4.0 mmol/L 5-12 L [facility] GLOMERULAR FILTRATION RATE >90 mL/min [facility] GFR IS CALCULATED IN mL/min/1.73m2 ZAYNAB L FUNCTION: >90MILDLY DECREASED: 60-89MILDY TO MODERATELY DECREASED: 45-59 MODERATELY TO SEVERELY DECREASED: 30-44SEVERELY DECREASED: 15-29RENAL FAILURE: <15 AST 40 U/L 15-37 H [facility] ALT 27 U/L 12-78 [facility] ALKALINE PHOSPHATASE 68 U/L 46-116 [facility] pital TOTAL BILIRUBIN 0.3 mg/dL 0.2-1.0 [facility] TOTAL PROTEIN 7.4 g/dl 6.4-8.2 [facility] ALBUMIN 3.9 gm/dL 3.4-5.0 [facility] ID Date Data Source [id number] 12/04/2019 04:46:00 PM EDT [id number] Name Value Range Interpretation Code Description Data [place] rce(s) Supporting Document(s) AMMONIA 39 umol/L 11-32 H [facility] ID Date Data Source [id number] 12/04/2019 04:19:00 PM EDT [facility] [id number] Name Value Range Interpretation Code Description Data [place] rce(s) Supporting Document(s) WHITE BLOOD COUNT 9.8 K/mm3 4.0-10.0 [facility] RED BLOOD COUNT 4.11 M/mm3 4.00-5.50 [facility] HEMOGLOBIN 12.3 gm/dL 12.0-16.0 [facility] HEMATOCRIT 37.9 % 36.0-48.8 [facility] MEAN CELL VOLUME 92.2 fl 80-96 [facility] MEAN CORPUSCULAR HEMOGLOBIN 29.9 pg 27.0-31.0 [facility] MEAN CORPUSCULAR HGB CONC 32.5 g/dl 32.0-36.0 [facility] RED CELL DISTRIBUTION WIDTH 13.0 % 10.0-14.5 [facility] PLATELET COUNT 368 K/mm3 172-450 [facility] MEAN PLATELET VOLUME 9.5 fl 9.0-13.0 [facility] pital GRAN % 71.0 % 50-80.0 [facility] IG% 0.2 % 0.0-0.2 [facility] LYMPH % 20.5 % 25.0-50.0 L [facility] MONO % 7.1 % 2.0-10.0 [facility] EOS % 1.0 % 0-5.0 [facility] BASO % 0.2 % 0.0-2.0 [facility] GRAN # 7.0 K/mm3 2.0-8.00 [facility] IG# 0.0 K/mm3 0.0-0.2 [facility] LYMPH # 2.0 K/mm3 1.0-5.0 [facility] MONO # 0.7 K/mm3 0.10-1.20 [facility] EOS # 0.1 K/mm3 0.0-0.5 [facility] BASO # 0.0 K/mm3 0.0-0.2 [facility] ID Date Data Source [id number] 12/11/2019 08:09:00 PM EDT [facility] Name Value Range Interpretation Code Description Data [place] rce(s) Supporting Document(s) LEVETIRACETAM, S <1.0 ug/mL 10.0-40.0 L [facility] Verified by repeat analysisThis test was developed and its performance characteristicsdetermined by [facility]. It has not been cleared orapproved by the Food and Drug Administration.Performed at: [address] [id number] Director: Robyn Julio MD, Phone: [phone] ID Date Data Source [id number] 12/11/2019 08:05:00 PM EDT [facility] Name Value Range Interpretation Code Description Data [place] rce(s) Supporting Document(s) Levetiracetam, S 10.0-40.0 Below low normal [facility] Verified by repeat analysisThis test was developed and its performance characteristicsdetermined by [facility]. It has not been cleared or approvedby the Food and Drug Administration. ID Date Data Source [id number] 12/04/2019 05:04:00 PM EDT [facility] l TSYSORDER [id number] Name Value Range Interpretation Code Description Data [place] rce(s) Supporting Document(s) DDIMER 0.74 mg/LFEU 0.19-0.60 H [facility] ID Date Data Source [id number] 12/04/2019 12:00:00 AM EDT [facility] Name Value Range Interpretation Code Description Data [place] rce(s) Supporting Document(s) 2019 Novel Coronavirus RNA Joey [facility] This lab was ordered by [facility] L aboratory and reported by [facility]. ID Date Data Source [id number] 11/07/2019 12:19:00 AM EDT [facility] 1 OrderSheet [facility] Emergency Department [address] [place] [address] Phone #: ext- [phone] 11/07/2019 00:19 [id number] Sex[facility] F : 1985 Age: 34yWEIGHT:78.9 kg (S)ALLERGIES: Penicillins, Sulfa AntibioticsCHIEF COMPLAINT: nauseaDIAGNOSIS: Drug abuse, Nausea, Normal Exam, AnxietyLAB ORDERSOrder Description Priority Entered Acknowledged InitialedCBC w Diff STAT 01:11/07/2019 Ack'd: 01:22 Jovan 02:24 Evonne Iyer R.N. R.N. M.DJayro;CMP STAT 01:11/07/2019 Ack'd: 01:22 Jovan 02:24 Evonne Iyer R.N. R.N. M.D.;HCG Serum Qual STAT 01:11/07/2019 Ack'd: 01:22 Jovan 02:24 Jovan Darryl Hagen, Evonne Maldonado R.N. M.D.;CPK STAT 01:11/07/2019 Ack'd: 01:22 Jovan 02:24 Jovan Darryl Hagen, Evonne Maldonado R.N. M.D.;Urine Drug Screen STAT 01:11/07/2019 Ack'd: 01:22 Jovan 02:24 Jovan Evonne Easton R.N. R.N. M.D.;Urinalysis (Clean STAT 01:11/07/2019 Ack'd: 01:22 Jovan 02:24 Jovan Evonne Sandoval R.N. R.N. MJayroDJayro;DIAGNOSTIC STUDY ORDERSOrder Description Priority Entered Acknowledged InitialedMEDICATION/IV/DRIP/FLUID ORDERSOrder Description Priority Entered Acknowledged InitialedNS IV 1000 mL 01:11/07/2019 Ack'd: 01:22 Jovan 02:26 Jovan BlairBolus: : Bolus 1000 Evonne Hagen R.N., R.N.mL (X1) Jeremie;Zofran 4 mg IVP X 1 01:01 11/07/2019 Ack'd: 01:22 Jovan 02:27 Jovan Blairdose: 4 mg (NOW Evonne Hagen R.N., R.N.x1) Jeremie; 2 OrderSheet [facility] Emerg ency Department [address] [place] [address] Phone #: ext- [phone] 11/07/2019 00:19 Patient: BRUNA LEE Sex: F : 1985 Age: 34yGENERAL ORDERSOrder Description Priority Entered Acknowledged Initialed[Electronically signed by Mara Gonzalez R.N. (04:20 11/07/2019)][Electronically signed by Evonne Hagen M.D. (05:23 11/07/2019)][Electronically locked by Mara Gonzalez R.N. (04:20 11/07/2019)] Name Value Range Interpretation Code Description Data [place] rce(s) Supporting Document(s) ID Date Data Source [id number] 11/07/2019 12:19:00 AM EDT [facility] 1 Medication Reconciliation Report [facility] Emergency Department [address] [place] [address] Phone #: ext- [phone] 11/07/2019 00:19 Patient: BRUNA LEE Sex: F [...] rce(s) Supporting Document(s) ID Date Data Source [id number] 11/07/2019 12:19:00 AM EDT [facility] 1 Medication Administration Record [facility] Emergency Department [address] [place] [address] Phone #: ext- [phone] 11/07/2019 00:19 Patient: BRUNA LEE Sex: F : 1985 Age: 34yWeight: 78.9 kgHeight/Length: 60 inBMI: 34ALLERGIES: Penicillins, Sulfa Antibiotics Date/Time Medication Administered Medication OrderedStart IV NS NS IV 1000 mL Bolus: : Bolus [id number] 11/07/2019 Dose: IV Fluids mL (X1)Jovan Maldonado RJayroNJayro Rate: 999 mL/hr---- Dispensed: 1000 mL bagStop Site: #1 left wrist03:55 11/07/2019Mara Gonzalez RJayroNJayroGiven ZOFRAN [IVP] (ONDANSETRON HCL) Zofran 4 mg IVP X 1 dose: 4 mg02:22 11/07/2019 Dose: 4 mg IVP (NOW x1)Jovan Maldonado R.N. Site: #1 left wrist Name Value Range Interpretation Code Description Data [place] rce(s) Supporting Document(s) ID Date Data Source [id number] 11/07/2019 12:19:00 AM EDT [facility] 1 General Instructions [facility] Emergency Department [address] [place] [address] Phone #: ext- [phone] 11/07/2019 00:19 Patient: [...] to plan of care. 2 General Instructions [facility] Emergency Department [address] [place] [address] Phone #: ext- [phone] 11/07/2019 00:19 Patient: [...] Tiredness Inability to sleep 3 General Instructions [facility] Emergency Department [address] [place], [place] [id number] Phone #: ext- [phone] 11/07/2019 00:19 Patient: [...] help you manage stress. 4 General Instructions [facility] Emergency Department [address] [place] [address] Phone #: ext- [phone] 11/07/2019 00:19 Patient: [...] relieved by rest and mild pain reliever [phone] [employer]. [address] [place] [address]. All rights reserved. This information is not intended as asubstitute for professional medical care. Always follow your healthcare professional's instructions. You have been given the following additional information: Anxiety Reaction(Electronically signed by Evonne Hagen M.D. 11/07/2019 05:23) Name Value Range Interpretation Code Description Data [place] rce(s) Supporting Document(s) ID Date Data Source [id number] 11/07/2019 12:19:00 AM EDT [facility] 1 Clinical Report - Nurses [facility] Emergency Department [address] [place] [address] Phone #: ext- [phone] 11/07/2019 00:19 Patient: BRUNA LEE Sex: F : 1985 Age: 34yTRIAGEHistorian: EMS and patient.Triage time: 00:24 11/07/2019.Chief Complaint: NAUSEA and ("face swelling").Onset. (states that it has been going on all day.). ( states that she has been sleeping a lot and used Molly2 days ago. 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 --00:27 11/07/19 Jovan Maldonado R.N.Acuity: LEVEL 3.( Whole body aches /10.).SEPSIS SCREEN: SIRS Screen: heart rate greater than [...] last month. 2 Clinical Report - Nurses [facility] Emergency Department [address] [place] [address] Phone #: ext- [phone] 11/07/2019 00:19 Patient: [...] pills. Was IMHU 3 wks. Last admit 2016. Sees a counselor weekly currently.). FALL RISK [...] lab and given to lab LW). --02:26 11/20 Jovan Maldonado R.N. 02:22 11/07/2019 Zofran (Ondansetron HCl) IVP 4 mg given over 2 minute(s) via site #1. Allergies verified and confirmed 5 rights. IV patency established. IV site checked: no pain, redness, or swelling. IV flushed thoroughly pre- and post-medication administration. IVP given by RN. Information reviewed with patient including reason for taking this medication. Verbalizes understanding. --02:27 11/07/19 Jovan Maldonado R.N. 02:11/07/2019 Started bag #1 1000 mL IV Fluids IV NS; at 999 mL/hr via site #1 via IV pump. Allergies 3 Clinical Report - Nurses [facility] Department [address] [place] [address] Phone #: [phone]- [phone] 11/07/2019 00:19 Patient: BRUNA LEE Sex: F [...] the presence of the patient. --02:27 11/07/19 Jovan Maldonado R.N. The patient is calm and resting quietly. ( [place] provided. Reassurance given to pt. Lights dimmed. [...] Patient verbalized understanding. Written instructions provided in Ukrainian. The patient was discharged by the physician. 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 2 Clinical Report - Physicians/Mid Levels [facility] Emergency Department [address] [place] [address] Phone #: ext- [phone] 11/07/2019 00:19 Patient: [...] (Reference) 3 Clinical Report - Physicians/Mid Levels [facility] Emergency Department [address] [place] [address] Phone #: ext- [phone] 11/07/2019 00:19 Patient: [...] Male GFR Interprentation 20-49 yrs >60 mL/min Ghmfwu83-08 yrs >56 mL/min Normal 60- 69 yrs >49 mL/min Normal 70-79yrs>42 mL/min Normal 80 and above >35 mL/min Normal Female GFRInterpretation 20-39 yrs >60 mL/min Normal 40-49 yrs >58 mL/minNormal 50-59 yrs >51 mL/min Normal 60-69 yrs >45 mL/min Normal 4 Clinical Report - Physicians/Mid Levels [facility] Emergency Department [address] [place] [address] Phone #: ext- [phone] 11/07/2019 00:19 Patient: BRUNA LEE Sex: F : 1985 Age: 76l25-90 yrs >39 mL/min Normal 80 and above >32 mL/min NormalBeta-HCG, Qual Serum: (JENN: 11/07/2019 02:15) ( [facility] 11/07/2019 03:20) Final results Test Result Flag Units (Reference) HCG SERUM QUAL NEGATIVE (NORMAL: NEGAT HCG SERUM QL REENTER NEGATIVE (NORMAL: NEGAT { KIT LOT # [id number] ){ KIT EXP [id number] ){ PROCEDURAL CONTROL VALID)CPK: (JENN: 11/07/2019 02:15) ( [facility] 11/07/2019 03:15) Final results Test Result Flag Units (Reference) CPK 313 H U/L (30 - 170)Drug Screen-Urine: (JENN: 11/07/2019 02:00) ( [facility] 11/07/2019 03:15) Final results Test Result Flag [...] PRESUMPTIVE POSITIVE CONFIRMATION WILL BE PERFORMED AT [facility].Urinalysis: (JENN: 11/07/2019 02:00) ( [facility] 11/07/2019 02:28) Final results Test Result Flag [...] Indicate 5 Clinical Report - Physicians/Mid Levels [facility] Emergency Department [address] [place] [address] Phone #: ext- [phone] 11/07/2019 00:19 Patient: [...] was requested by: Evonne Hagen Reference #: [id number] Others' Prescriptions Patient Name: Bruna LeeBirth Date: 1985 Address: [address] [place], [place] [address]Sex: Female Rx Written Rx Dispensed Drug Quantity [...] table. 6 Clinical Report - Physicians/Mid Levels [facility] Department [address] [place] [address] Phone #: ext- [phone] 11/07/2019 00:19 Patient: [...] Oral. 7 Clinical Report - Physicians/Mid Levels [facility] Department [address] [place] [address] Phone #: ext- [phone] 11/07/2019 00:19 Patient: BRUNA LEE [facility]#: [id number] Sex: F : 1985 Age: 34y RisperDAL [...] rce(s) Supporting Document(s) ID Date Data Source [id number] 11/07/2019 03:20:00 AM EDT [facility] Name Value Range Interpretation Code Description Data [place] rce(s) Supporting Document(s) HCG SERUM QUAL NEGATIVE NORMAL: NEGATIVE [facility] HCG SERUM QL REENTER NEGATIVE NORMAL: NEGATIVE [facility] { KIT LOT # [id number] ){ KIT EXP DATE 12-08-20 ){ PROCEDURAL CONTROL VALID ) ID Date Data Source [id number] 11/07/2019 03:15:00 AM EDT [facility] Name Value Range Interpretation Code Description Data [place] rce(s) Supporting Document(s) Creatine kinase [Enzymatic activity/volume] in Serum or Plasma 3 13 U/L 30 - 170 H [facility] ID Date Data Source [id number] 11/07/2019 03:14:00 AM EDT [facility] Name Value Range Interpretation Code Description Data [place] rce(s) Supporting Document(s) COMPREHENSIVE METABOLIC PANEL [facility] COMPREHENSIVE METABOLIC PANEL Sodium [Moles/volume] in Serum or Plasma 140 mEq/L 134 - 153 [facility] Potassium [Moles/volume] in Serum or Plasma 3.8 mEq/L 3.6 - 5.0 [facility] Chloride [Moles/volume] in Serum or Plasma 100 mEq/L 98 - 107 [facility] Carbon dioxide, total [Moles/volume] in Serum or Plasma 30 MEQ/L 22 - 30 [facility] Glucose [Mass/volume] in Serum or Plasma 98 MG/DL 65 - 110 [facility] BUN 14 MG/DL 7 - 21 [facility] Creatinine [Mass/volume] in Serum or Plasma 0.7 MG/DL 0.7 - 1.5 [facility] BUN/CREAT 20 8 - 27 [facility] Protein [Mass/volume] in Serum or Plasma 5.9 G/DL 6.3 - 8.2 L [facility] Albumin [Mass/volume] in Serum or Plasma 3.6 G/DL 3.9 - 5.0 L [facility] Globulin [Mass/volume] in Serum by calculation 2.3 GM/DL 2.4 - 3.2 L [facility] A/G RATIO 1.6 0.8 - 2.0 [facility] Calcium [Mass/volume] in Serum or Plasma 9.2 MG/DL 8.4 - 10.2 [facility] Bilirubin.total [Mass/volume] in Serum or Plasma <0.7 MG/DL 0.2 - 1.3 [facility] Alkaline phosphatase [Enzymatic activity/volume] in Serum or Plasma 62 U/L 38 - 126 [facility] Aspartate aminotransferase [Enzymatic activity/volume] in Serum or Plasma 302 U/L 5 - 40 H [facility] Alanine aminotransferase [Enzymatic activity/volume] in Seru m or Plasma 125 U/L 7 - 56 H [facility] Anion gap 3 in Serum or Plasma 10.0 mmol/L 8.0 - 16.0 [facility] AGE 34 yrs [facility] al NON-AA GFR >60 mL/min [facility] ital AFR AMER GFR >60 mL/min [facility] Ho spital Male GFR In terprentation [...] >32 mL/min Normal ID Date Data Source [id number] 11/07/2019 02:27:00 AM EDT [facility] Name Value Range Interpretation Code Description Data [place] rce(s) Supporting Document(s) CBC W/AUTOMATED DIFF [facility] COMPLETE BLOOD COUNT Leukocytes [#/volume] in Blood by Automated count 8.3 10^3/uL 4.2 - 1 1.0 [facility] Erythrocytes [#/volume] in Blood by Automated count 3.87 10^6/uL 4. 20 - 5.40 L [facility] Hemoglobin [Mass/volume] in Blood 11.6 g/dL 12.0 - 16.0 L [facility] Hematocrit [Volume Fraction] of Blood by Automated count 36.0 % 3 7.0 - 47.0 L [facility] Erythrocyte mean corpuscular volume [Entitic volume] by Auto mated count 93.0 fL 81.0 - 101 [facility] Erythrocyte mean corpuscular hemoglobin [Entitic mass] by Automated count 30.0 pg 27.0 - 34.0 [facility] Erythrocyte mean corpuscular hemoglobin concentration [Mass/volume] by Automated count 32.2 g/dL 31.0 - 36.0 [facility] Erythrocyte distribution width [Ratio] by Automated count 13.3 % 11.5 - 14.5 [facility] Platelets [#/volume] in Blood by Automated count 271 10^3/uL 150 - 45 0 [facility] Platelet mean volume [Entitic volume] in Blood by Automated count 9.5 fL 7.4 - 10.4 [facility] Neutrophils/100 leukocytes in Blood by Automated count 82.6 % 37. 0 - 80.0 H [facility] Lymphocytes/100 leukocytes in Blood by Manual count 14.3 % 25.0 - 40.0 L [facility] Monocytes/100 leukocytes in Blood by Automated count 1.6 % 3.0 - 8.0 L [facility] Eosinophils/100 leukocytes in Blood by Automated count 0.8 % 0.0 - 7.0 [facility] Basophils/100 leukocytes in Blood by Automated count 0.2 % 0.0 - 2.5 [facility] %IG 0.5 % 0.0 - 0.0 [facility] %[facility] 0.0 % 0.0 - 0.0 [facility] Neutrophils [#/volume] in Blood by Automated count 6.85 10^3/uL 2.00 - 6.90 [facility] Lymphocytes [#/volume] in Blood by Automated count 1.19 10^3/uL 0.60 - 3.40 [facility] Monocytes [#/volume] in Blood by Automated count 0.13 10^3/uL 0.00 - 0.90 [facility] Eosinophils [#/volume] in Blood by Automated count 0.07 10^3/uL 0.00 - 0.70 [facility] Basophils [#/volume] in Blood by Automated count 0.02 10^3/uL 0.00 - 0.20 [facility] #IG 0.04 10^3/uL 0.00 - 0.10 [facility] ospital #NRBC 0.00 10^3/uL 0.00 - 0.00 [facility] ospital MANUAL DIFF NOT INDICATED [facility] RBC MORPH NOT INDICATED [facility] spital ID Date Data Source [id number] 11/07/2019 03:14:00 AM EDT [facility] Name Value Range Interpretation Code Description Data [place] rce(s) Supporting Document(s) DRUG SCREEN URINE [facility] URINE DRUG SCREEN Amphetamine [Presence] in Urine by Screen method PRESUMP POS ZAYNAB L: NEGATIVE [facility] BARBITURATES NEGATIVE NORMAL: NEGATIVE [facility] BENZO NEGATIVE NORMAL: NEGATIVE [facility] COCAINE NEGATIVE NORMAL: NEGATIVE [facility] Tetrahydrocannabinol [Presence] in Urine NEGATIVE NORMAL: NEGATIVE [facility] OPIATES NEGATIVE NORMAL: NEGATIVE [facility] Phencyclidine [Presence] in Urine by Screen method NEGATIVE NOR MAL: NEGATIVE [facility] \\BLDo\\URINE DRUG SCR EEN INTERPRETATION\\BLDx\\ THE CUTOFFF LEVELS FOR DETECTION ARE FOLLOWS: AMPHETAMINES 1000 ng/ml BARBITUARATES 200 ng/ml BENZODIAZEPINES 100 ng/ml THC 50 ng/ml PHENCYCLIDINE 25 ng/ml OPIATES 300 ng/ml COCAINE 300 ng/ml ALL POSITIVES ARE CONSIDERED PRESUMPTIVE POSITIVE CONFIRMATION WILL BE PERFORMED AT PHYSICIAN REQUEST. ID Date Data Source [id number] 11/07/2019 02:27:00 AM EDT [facility] Name Value Range Interpretation Code Description Data [place] rce(s) Supporting Document(s) URINALYSIS [facility] Hospi james URINALYSIS SOURCE R [facility] Hospit al COLOR yellow NORMAL: Yellow [facility] H [facility]spital CLARITY clear NORMAL: Clear [facility] Ho spital Specific gravity of Urine by Test strip 1.020 1.001 - 1.030 [facility] pH 6 5 - 9 [facility] Glucose [Mass/volume] in Urine by Test strip NORM [facility]AL: [facility] Bilirubin.total [Presence] in Urine by Test strip NEG NORMAL: Negative [facility] Ketones [Presence] in Urine by Test strip NEG NORMAL: Negative [facility] Protein [Mass/volume] in Urine by Test strip NEG NORMAL: Negat [facility] Nitrite [Presence] in Urine by Test strip NEG NORMAL: Negative [facility] BLOOD NEG NORMAL: Negative [facility] Leukocyte esterase [Presence] in Urine by Test strip NEG ZAYNAB L: Negative [facility] Urobilinogen [Mass/volume] in Urine by Test strip 1 less kenna n 1.0 mg/dL [facility] MICROSCOPIC Not Indicate [facility] H ospital ID Date Data Source [id number] 10/30/2019 10:27:00 AM EDT [facility] Name Value Range Interpretation Code Description Data [place] rce(s) Supporting Document(s) BG FASTING 132 mg/dL 70-100 H [facility] TSH 0.526 microintl units/mL 0.358-3.740 N [facility] ID Date Data Source [id number] 10/30/2019 10:27:00 AM EDT [facility] Name Value Range Interpretation Code [...] 4.5 4.0-10.0 N [facility] Procedure Social History Code Duration Value Status Description Data Source(s ) 11/05/2020 12:00:00 AM EDT Heavy cigarette smoker (20- 39 cigs/day) completed Heavy cigarette smoker (20-39 cigs/day) [facility] ([facility]) Smoking 11/05/2020 12:00:00 AM EDT Heavy tobacco smoker comple keven Heavy tobacco smoker [employer] ([facility]) Alcohol intake 09/24/2020 12:00:00 AM EDT Ex-drinker (finding) comp leted Ex- drinker (finding) [facility] Tobacco use and exposure 09/24/2020 12:00:00 AM EDT Never used co mpleted Never used [facility] Cigarettes smoked current (pack per day) - Reported 09/25/19 12:00:00 AM EDT UNK completed [facility]spital Smoking 09/24/2020 12:00:00 AM EDT Smoker, current status unkn own completed Smoker, current status unknown [facility] Alcohol intake 08/06/2020 12:00:00 AM EDT Ex-drinker (finding) comp leted Ex- drinker (finding) [facility] Smoking 07/22/2020 12:00:00 AM EDT Current Smoker completed Curre nt Smoker eCW1 ([facility]) Smoking 07/22/2020 12:00:00 AM EDT Current Smoker completed Curre nt Smoker eCW1 ([facility]) Smoking 07/22/2020 12:00:00 AM EDT Current Smoker completed Curre nt Smoker eCW1 ([facility]) Smoking 06/14/2020 12:00:00 AM EDT Current Smoker completed Curre nt Smoker eCW1 ([facility]) Smoking 06/14/2020 12:00:00 AM EDT Current Smoker completed Curre nt Smoker eCW1 [facility] [facility] [place] Smoking 06/14/2020 12:00:00 AM EDT Current Smoker completed Curre nt Smoker eCW1 ([facility] [place]) Smoking 06/14/2020 12:00:00 AM EDT Current Smoker completed Curre nt Smoker eCW1 ([facility] [place]) Smoking 03/30/2020 12:00:00 AM EST Current Smoker completed Curre nt Smoker eCW1 ([facility] [place]) Smoking 03/30/2020 12:00:00 AM EST Current Smoker completed Curre nt Smoker eCW1 ([facility] [place]) Smoking 03/30/2020 12:00:00 AM EST Current Smoker completed Curre nt Smoker eCW1 ([facility] [place]) Smoking 03/30/2020 12:00:00 AM EST Current Smoker completed Curre nt Smoker eCW1 ([facility] [place]) Smoking 03/30/2020 12:00:00 AM EST Current Smoker completed Curre nt Smoker eCW1 ([facility] [place]) Smoking 03/30/2020 12:00:00 AM EST Current Smoker completed Curre nt Smoker eCW1 ([facility] [place]) Smoking 03/30/2020 12:00:00 AM EST Current Smoker completed Curre nt Smoker eCW1 ([facility] [place]) Smoking 03/30/2020 12:00:00 AM EST Current Smoker completed Curre nt Smoker eCW1 ([facility] [place]) Smoking 03/30/2020 12:00:00 AM EST Current Smoker completed Curre nt Smoker eCW1 ([facility] [place]) Smoking 03/30/2020 12:00:00 AM EST Current Smoker completed Curre nt Smoker eCW1 ([facility] [place]) Smoking 03/30/2020 12:00:00 AM EST Current Smoker completed Curre nt Smoker eCW1 ([facility] [place]) Smoking 03/30/2020 12:00:00 AM EST Current Smoker completed Curre nt Smoker eCW1 ([facility] [place]) Smoking 03/30/2020 12:00:00 AM EST Current Smoker completed Curre nt Smoker eCW1 ([facility] [place]) Smoking 03/30/2020 12:00:00 AM EST Current Smoker completed Curre nt Smoker eCW1 ([facility] [place]) Smoking 03/30/2020 12:00:00 AM EST Current Smoker completed Curre nt Smoker eCW1 ([facility] [place]) Smoking 03/30/2020 12:00:00 AM EST Current Smoker completed Curre nt Smoker eCW1 ([facility] [place]) Smoking 03/30/2020 12:00:00 AM EST Current Smoker completed Curre nt Smoker eCW1 ([facility] [place]) Smoking 03/01/2020 12:00:00 AM EST Current Smoker completed Curre nt Smoker eCW1 ([facility] [place]) Smoking 03/01/2020 12:00:00 AM EST Current Smoker completed Curre nt Smoker eCW1 ([facility] [place]) Smoking 03/01/2020 12:00:00 AM EST Current Smoker completed Curre nt Smoker eCW1 ([facility] [place]) Smoking 02/18/2020 12:00:00 AM EST Current Smoker completed Curre nt Smoker eCW1 ([facility] [place]) Smoking 12/24/2019 12:00:00 AM EDT Current Smoker completed Curre nt Smoker eCW1 ([facility] [place]) Smoking 12/24/2019 12:00:00 AM EDT Current Smoker completed Curre nt Smoker eCW1 ([facility] [place]) Smoking 12/24/2019 12:00:00 AM EDT Current Smoker completed Curre nt Smoker eCW1 ([facility] [place]) Smoking 12/24/2019 12:00:00 AM EDT Current Smoker completed Curre nt Smoker eCW1 ([facility] [place]) Smoking 12/24/2019 12:00:00 AM EDT Current Smoker completed Curre nt Smoker eCW1 ([facility] [place]) Smoking 12/24/2019 12:00:00 AM EDT Current Smoker completed Curre nt Smoker eCW1 ([facility] [place]) Smoking 12/24/2019 12:00:00 AM EDT Current Smoker completed Curre nt Smoker eCW1 ([facility] [place]) Smoking 10/31/2019 12:00:00 AM EDT Current Smoker completed Curre nt Smoker eCW1 ([facility] [place]) Smoking 10/31/2019 12:00:00 AM EDT Current Smoker completed Curre nt Smoker eCW1 ([facility] [place]) Smoking 10/31/2019 12:00:00 AM EDT Current Smoker completed Curre nt Smoker eCW1 ([facility] [place]) Vital Signs ID Date Data Source UNK Name Value Range Interpretation Code Description Data Source(s) Diastolic blood pressure 56 mm[Hg] 56 mm[Hg] MATIAS ([facility]) Body height 61 [in_i] 61 [in_i] MATIAS ([facility]) Body mass index (BMI) [Ratio] 31.5 kg/m2 31.5 k g/m2 MATIAS ([facility]) Systolic blood pressure 83 mm[Hg] 83 mm[Hg] A THENA ([facility]) Body weight 2664 [oz_av] 2664 [oz_av] MATIAS ([facility]) Body height 152.40 cm 152.40 cm [facility] ([facility]) Body mass index (BMI) [Ratio] 31.87 kg/m2 Overweight 31.87 kg/m2 [facility] ([facility]) Body weight 74.026 kg 74.026 kg [facility] ([facility]) Systolic blood pressure 116 mm[Hg] 116 mm[Hg] N extGen ([facility]) Diastolic blood pressure 76 mm[Hg] 76 mm[Hg] [employer] ([facility]) Body height 60.0 [in_i] 60.0 [in_i] eCW1 ([facility] [place]) Body weight 183.0 [lb_av] 183.0 [lb_av] eCW1 ([facility]) Body mass index (BMI) [Ratio] 35.74 kg/m2 35.74 kg/m2 eCW1 ([facility] [place]) Heart rate 119 /min 119 /min eCW1 ([facility]) Respiratory rate 18 /min 18 /min eCW1 ([facility]) Oxygen saturation in Arterial blood by Pulse oximetry 98 % 98 % eCW1 ([facility] [place]) Body height 60 [in_i] 60 [in_i] eCW1 ([facility]) Body weight 180.6 [lb_av] 180.6 [lb_av] eCW1 ([facility]) Body mass index (BMI) [Ratio] 35.27 kg/m2 35.27 kg/m2 eCW1 ([facility] [place]) Heart rate 93 /min 93 /min eCW1 ([facility]) Respiratory rate 18 /min 18 /min eCW1 ([facility]) Oxygen saturation in Arterial blood by Pulse oximetry 99 % 99 % eCW1 ([facility] [place]) Body height 60 [in_i] 60 [in_i] eCW1 ([facility]) Body weight 186.8 [lb_av] 186.8 [lb_av] eCW1 ([facility]) Body mass index (BMI) [Ratio] 36.48 kg/m2 36.48 kg/m2 eCW1 ([facility] [place]) Heart rate 89 /min 89 /min eCW1 ([facility]) Respiratory rate 18 /min 18 /min eCW1 ([facility]) Oxygen saturation in Arterial blood by Pulse oximetry 97 % 97 % eCW1 ([facility] [place]) Body height 60 [in_i] 60 [in_i] eCW1 ([facility]) Body weight 164.4 [lb_av] 164.4 [lb_av] eCW1 ([facility]) Body mass index (BMI) [Ratio] 32.10 kg/m2 32.10 kg/m2 eCW1 ([facility] [place]) Body temperature 98.0 [degF] 98.0 [degF] eCW1 ( [facility] [place]) Heart rate 86 /min 86 /min eCW1 ([facility]) Respiratory rate 18 /min 18 /min eCW1 ([facility]) Oxygen saturation in Arterial blood by Pulse oximetry 98 % 98 % eCW1 ([facility] [place]) Body height 60 [in_i] 60 [in_i] eCW1 ([facility]) Respiratory rate 18 /min 18 /min eCW1 ([facility]) Body weight 157.2 [lb_av] 157.2 [lb_av] eCW1 ([facility]) Oxygen saturation in Arterial blood by Pulse oximetry 99 % 99 % eCW1 ([facility] [place]) Body mass index (BMI) [Ratio] 30.70 kg/m2 30.70 kg/m2 eCW1 ([facility] [place]) Body temperature 98.7 [degF] 98.7 [degF] eCW1 ( [facility] [place]) Heart rate 100 /min 100 /min eCW1 ([facility]) ID Date Data Source [id number] 10/18/2020 09:45:12 AM EDT [facility] Name Value Range Interpretation Code Description Data Source(s) TRANSFER FROM [facility] ID Date Data Source [id number] 08/27/2020 04:17:02 PM EDT [facility] Name Value Range Interpretation Code Description Data Source(s) TRANSFER FROM [facility] ID Date Data Source [id number] 08/17/2020 03:58:41 PM EDT [facility] Name Value Range Interpretation Code Description Data Source(s) TRANSFER FROM [facility] ID Date Data Source [id number] 12/26/2019 01:56:00 PM EDT [facility] Name Value Range Interpretation Code Description Data Source(s) WEIGHT 72.3 kilos 72.3 kilos [facility] HEIGHT 152.4 centimeters 152.4 centimeters [facility] WEIGHT 75 kilos 75 kilos [facility] HEIGHT 152.4 centimeters 152.4 centimeters [facility] ID Date Data Source [id number] 12/10/2019 06:07:00 AM EDT [facility] Name Value Range Interpretation Code Description Data Source(s) WEIGHT 68 kilos 68 kilos [facility] HEIGHT 152.4 centimeters 152.4 centimeters [facility] WEIGHT 68.4 kilos 68.4 kilos [facility] HEIGHT 152.4 centimeters 152.4 centimeters [facility] ID Date Data Source [id number] [facility] Value Range Interpretation Code Description Data Source(s) WEIGHT 75 kilos 75 kilos [facility] HEIGHT 152.4 centimeters 152.4 centimeters [facility] ID Date Data Source [id number] 12/08/2019 01:43:00 PM EDT [facility] james Name Value Range Interpretation Code Description Data Source(s) WEIGHT 74 kilos 74 kilos [facility] HEIGHT 160.02 centimeters 160.02 centimeter [facility] Patient Treatment Plan of Care Planned Activity Planned Date Details Description Data Source (s) Citalopram 10 MG Oral Tablet 09/30/2020 12:00:00 AM [facility] Levetiracetam 1000 MG Oral Tablet 09/29/2020 12:00:00 AM [facility] gabapentin 600 MG Oral Tablet 09/29/2020 12:00:00 AM [facility] Chlorpromazine hydrochloride 100 MG Oral Tablet 09/29/2020 12:00:00 AM [facility] Magnesium Hydroxide 80 MG/ML Oral Suspension 09/13/2020 08:49:03 AM [facility] sennosides, [facility] 8.6 MG Oral Tablet 09/13/2020 08:49:03 AM [facility] Docusate Sodium 100 MG Oral Capsule 09/13/2020 08:49:03 AM [facility] Bisacodyl 10 MG Rectal Suppository 09/13/2020 08:49:03 AM [facility] Buprenorphine 8 MG / Naloxone 2 MG Oral Strip 08/18/2020 12:00:00 A M [facility] Diphenhydramine Hydrochloride 25 MG Oral Capsule 08/17/2020 10:11:0 1 AM [facility] Asenapine 10 MG Sublingual Tablet 08/17/2020 12:00:00 AM [facility] benztropine mesylate 1 MG Oral Tablet 08/17/2020 12:00:00 AM [facility] gabapentin 300 MG Oral Capsule 08/17/2020 12:00:00 AM [facility] Diphenhydramine Hydrochloride 25 MG Oral Capsule 08/17/2020 12:00:0 0 AM [facility] Buprenorphine 8 MG / Naloxone 2 MG Sublingual Tablet 12:00:00 AM [facility] Clonidine Hydrochloride 0.2 MG Oral Tablet 08/17/2020 12:00:00 AM E DT [facility] Aluminum Hydroxide 40 MG/ML / Magnesium Hydroxide 40 MG/ML / Simethicone 4 MG/ML Oral Suspension [facility] MG/ML Oral Suspension 08/06/2020 07:39:11 PM [facility] gabapentin 600 MG Oral Tablet 07/17/2020 12:00:00 AM [facility] Doxepin Hydrochloride 25 MG Oral Capsule 03/09/2020 12:00:00 AM EST eCW1 ([facility] [place]) Doxepin Hydrochloride 25 MG Oral Capsule 03/09/2020 12:00:00 AM EST eCW1 ([facility] [place]) Doxepin Hydrochloride 25 MG Oral Capsule 03/09/2020 12:00:00 AM EST eCW1 ([facility] [place]) Clonidine Hydrochloride 0.2 MG Oral Tablet 12/24/2019 12:00:00 AM E DT eCW1 ([facility] [place]) Clonidine Hydrochloride 0.2 MG Oral Tablet 12/24/2019 12:00:00 AM E DT eCW1 ([facility] [place]) Clonidine Hydrochloride 0.2 MG Oral Tablet 12/24/2019 12:00:00 AM E DT eCW1 ([facility] [place]) Clonidine Hydrochloride 0.2 MG Oral Tablet 12/24/2019 12:00:00 AM E DT eCW1 ([facility] [place]) Clonidine Hydrochloride 0.2 MG Oral Tablet 12/24/2019 12:00:00 AM E DT eCW1 ([facility] [place]) Clonidine Hydrochloride 0.2 MG Oral Tablet 12/24/2019 12:00:00 AM E DT eCW1 ([facility] [place]) Clonidine Hydrochloride 0.2 MG Oral Tablet 12/24/2019 12:00:00 AM E DT eCW1 ([facility] [place]) lisdexamfetamine dimesylate 50 MG Oral Capsule [Vyvans e] 11/04/2019 12:00:00 AM EDT eCW1 ([facility] [place]) Clonazepam 0.5 MG Oral Tablet 11/04/2019 12:00:00 AM EDT eCW1 ([facility] [place]) Citalopram 20 MG Oral Tablet [Celexa] 11/04/2019 12:00:00 AM EDT eCW1 ([facility] [place]) Sumatriptan 25 MG Oral Tablet MATIAS ([facility]) Buprenorphine 12 MG / Naloxone 3 MG Oral Strip [Suboxone] SHILOH ([facility]) benztropine mesylate 1 MG Oral Tablet [facility] Clonidine Hydrochloride 0.2 MG Oral Tablet [facility] Levetiracetam 1000 MG Oral Tablet [facility] Lurasidone Hydrochloride 40 MG Oral Tablet [facility] Trazodone Hydrochloride 50 MG Oral Tablet [facility] gabapentin 300 MG Oral Capsule [facility] 24 HR Nicotine 0.875 MG/HR Transdermal Patch [facility]
[2020-12-26] MEDS ORDERED: AMIT100TA (11:14)
--- OUTSIDE RECORDS SUMMARY | 2020-12-26 12:11 | CCD ---
Author Author [facility] Organization [facility] Address Unknown Phone Unavailable Care Team Providers Care Rn Clinical Documentation Name Role Phone Yessi Ritchie MD Unavailable [...] Unavailable Unavailable Yessi Ritchie MD Unavailable Unavailable Ysesi Ritchie MD Unavailable Unavailable Yessi Ritchie [...] Unavailable Yessi Ritchie MD Unavailable Unavailable Yessi Rithcie MD Unavailable Unavailable Yessi Ritchie MD Unavailable [...] Unavailable Unavailable MARICHAO Gonzalez MD Unavailable Unavailable Colten PARADA MD [...] Chato OTERO MD Unavailable Unavailable DESJARLAIS, KAROLYN GRAPHIC ART TECHNICIAN Unavailable Unavailable DESJARLAIS, KAROLYN GRAPHIC ART TECHNICIAN Unavailable Unavailable DESJARLAIS, KAROLYN GRAPHIC ART TECHNICIAN Unavailable Unavailable DESJARLAIS, KAROLYN GRAPHIC ART TECHNICIAN Unavailable Unavailable DESJARLAIS, KAROLYN GRAPHIC ART TECHNICIAN Unavailable Unavailable DESJARLAIS, KAROLYN GRAPHIC ART TECHNICIAN Unavailable Unavailable DESJARLAIS, KAROLYN GRAPHIC ART TECHNICIAN Unavailable Unavailable DESJARLAIS, KAROLYN GRAPHIC ART TECHNICIAN Unavailable Unavailable DESJARLAIS, KAROLYN GRAPHIC ART TECHNICIAN Unavailable Unavailable Lester, A Mavis SAP BOBJ DEVELOPER Unavailable Unavailable Lester, A Mavis SAP BOBJ DEVELOPER Unavailable Unavailable Lester, A Mavis SAP BOBJ DEVELOPER Unavailable Unavailable Lester, A Mavis SAP BOBJ DEVELOPER Unavailable Unavailable Lester, A Mavis SAP BOBJ DEVELOPER Unavailable Unavailable Lester, A Mavis SAP BOBJ DEVELOPER Unavailable Unavailable Lester, A Mavis SAP BOBJ DEVELOPER Unavailable Unavailable Lester, A Mavis SAP BOBJ DEVELOPER Unavailable Unavailable Lester, A Mavis SAP BOBJ DEVELOPER Unavailable Unavailable Lester, A Mavis SAP BOBJ DEVELOPER Unavailable Unavailable Lester, A Mavis SAP BOBJ DEVELOPER Unavailable Unavailable Lester, A Mavis SAP BOBJ DEVELOPER Unavailable Unavailable Lester, A Mavis SAP BOBJ DEVELOPER Unavailable Unavailable Lester, A Mavis SAP BOBJ DEVELOPER Unavailable Unavailable Lester, A Mavis SAP BOBJ DEVELOPER Unavailable Unavailable Lester, A Mavis SAP BOBJ DEVELOPER Unavailable Unavailable Lester, A Mavis SAP BOBJ DEVELOPER Unavailable Unavailable Lester, A Mavis SAP BOBJ DEVELOPER Unavailable Unavailable Elster, A Mavis SAP BOBJ DEVELOPER Unavailable Unavailable Lester, A Mavis SAP BOBJ DEVELOPER Unavailable Unavailable Lester, A Mavis SAP BOBJ DEVELOPER Unavailable Unavailable Lester, A Mavis SAP BOBJ DEVELOPER Unavailable Unavailable Lester, A Mavis SAP BOBJ DEVELOPER Unavailable Unavailable Lester, A Mavis SAP BOBJ DEVELOPER Unavailable Unavailable Lester, A Mavis SAP BOBJ DEVELOPER Unavailable Unavailable Lester, A Mavis SAP BOBJ DEVELOPER Unavailable Unavailable Lester, A Mavis SAP BOBJ DEVELOPER Unavailable Unavailable Lester, A Mavis SAP BOBJ DEVELOPER Unavailable Unavailable Lester, A Mavsi SAP BOBJ DEVELOPER Unavailable Unavailable Lester, A Mavis SAP BOBJ DEVELOPER Unavailable Unavailable Lester, A Mavis SAP BOBJ DEVELOPER Unavailable Unavailable Kori STEVEN MD Unavailable Unavailable [...] MIRLANDE FUNEZ MD Unavailable Unavailable DEE DEE EVANGELICAL MD Unavailable Unavailable FUNEZ, EVANGELICAL MD Unavailable Unavailable FUNEZ, EVANGELICAL MD Unavailable Unavailable FUNEZ, EVANGELICAL MD Unavailable Unavailable FUNEZ, EVANGELICAL MD Unavailable Unavailable FUNEZ, EVANGELICAL MD Unavailable Unavailable FUNEZ, EVANGELICAL MD Unavailable Unavailable Ching, Reginah W Kassidy SAP BOBJ DEVELOPER-C Unavailable Unavailabl e Ching, Reginah W Kassidy SAP BOBJ DEVELOPER-C Unavailable Unavailabl e Ching, Reginah W Kassidy SAP BOBJ DEVELOPER-C Unavailable Unavailabl e Ching, Reginah W Kassidy SAP BOBJ DEVELOPER-C Unavailable Unavailabl e Ching, Reginah W Kassidy SAP BOBJ DEVELOPER-C Unavailable Unavailabl e Ching, Reginah W Kassidy SAP BOBJ DEVELOPER-C Unavailable Unavailabl e Ching, Reginah W Kassidy SAP BOBJ DEVELOPER-C Unavailable Unavailabl e Ching, Reginah W Kassidy SAP BOBJ DEVELOPER-C Unavailable Unavailabl e Ching, Reginah W Kassidy SAP BOBJ DEVELOPER-C Unavailable Unavailabl e Ching, Reginah W Kassidy SAP BOBJ DEVELOPER-C Unavailable Unavailabl e Ching, Reginah W Akssidy SAP BOBJ DEVELOPER-C Unavailable Unavailabl e Ching, Reginah W Kassidy SAP BOBJ DEVELOPER-C Unavailable Unavailabl e Ching, Reginah W Kassidy SAP BOBJ DEVELOPER-C Unavailable Unavailabl e Ching, Reginah W Kassidy SAP BOBJ DEVELOPER-C Unavailable Unavailabl e Ching, Reginah W Kassidy SAP BOBJ DEVELOPER-C Unavailable Unavailabl e Ching, Reginah W Kassidy SAP BOBJ DEVELOPER-C Unavailable Unavailabl e Ching, Reginah W Kassidy SAP BOBJ DEVELOPER-C Unavailable Unavailabl e Ching, Elijah Juareze SAP BOBJ DEVELOPER-C Unavailable Unavailabl e Ching, Elijah Juareze SAP BOBJ DEVELOPER-C Unavailable Unavailabl e Ching, Elijah W Kassidy SAP BOBJ DEVELOPER-C Unavailable Unavailabl e Ching, Elijah Ballyce SAP BOBJ DEVELOPER-C Unavailable Unavailabl e Ching, Elijah W Kassidy SAP BOBJ DEVELOPER-C Unavailable Unavailabl e Ching, Elijah W Kassidy SAP BOBJ DEVELOPER-C Unavailable Unavailabl e Ching, Reginalisa W Kassidy SAP BOBJ DEVELOPER-C Unavailable Unavailabl e Ching, Abhishekinalisa W Kassidy SAP BOBJ DEVELOPER-C Unavailable Unavailabl e Ching, Elijah W Kassidy SAP BOBJ DEVELOPER-C Unavailable Unavailabl e Ching, Elijah W Kassidy SAP BOBJ DEVELOPER-C Unavailable Unavailabl e Ching, Elijah Ballyce SAP BOBJ DEVELOPER-C Unavailable Unavailabl e Ching, Elijah W Kassidy SAP BOBJ DEVELOPER-C Unavailable Unavailabl e Ching, Elijah W Kassidy SAP BOBJ DEVELOPER-C Unavailable Unavailabl e Ching, Elijah Ballyce SAP BOBJ DEVELOPER-C Unavailable Unavailabl e Ching, Elijah W Kassidy SAP BOBJ DEVELOPER-C Unavailable Unavailabl e LESTER, MATIAS PA Unavailable [...] Nora Unavailable Unavailable Macario Edwarde Unavailable Brown, [place] Unavailable MARK, L GINGER PA Unavailable Unavailable [...] MAHESH RECINOS MD Unavailable Unavailable Mavis BatistaP SAP BOBJ DEVELOPER Unavailable Unavailable KATRIN BLUM MD Unavailable Unavailable [...] GENO HERNANDEZ Unavailable Unavailable TYE, S GENO HERANNDEZ Unavailable Unavailable TYE, S GENO HERNANDEZ Unavailable Unavailable Lino MOONEY MD Unavailable Unavailable JESICALino Cullen MD Unavailable Unavailable JESICALino Cullen MD Unavailable Unavailable Lino MOONEY MD Unavailable Unavailable Lino MOONEY MD Unavailable Unavailable Lino MOONEY MD Unavailable Unavailable Lino MOONEY MD Unavailable Unavailable Lino MOONEY MD Unavailable Unavailable Lino MOONEY MD Unavailable Unavailable Lnio MOONEY MD Unavailable Unavailable Lino MOONEY MD Unavailable Unavailable Lino MOONEY MD Unavailable Unavailable Lino MOONEY MD Unavailable Unavailable Lino MONOEY MD Unavailable Unavailable Lino MOONEY MD Unavailable Unavailable Lino MOONEY MD Unavailable Unavailable Lino MOONEY MD Unavailable Unavailable Lino MOONEY MD Unavailable Unavailable Lino MOONEY MD Unavailable Unavailable Lino MOONEY MD Unavailable Unavailable Lino MOONEY MD Unavailable Unavailable Lino MOONEY MD Unavailable Unavailable BROWN, L JANE Unavailable Unavailable ESCALERA, ANAHI GRAPHIC ART TECHNICIAN Unavailable Unavailable ESCALERA, ANAHI GRAPHIC ART TECHNICIAN Unavailable Unavailable ESCALERA, ANAHI GRAPHIC ART TECHNICIAN Unavailable Unavailable BEHZAD SOTO MD Unavailable Unavailable [...] is protected by Article 27-F of the [facility] Public Health law. If you continue you may have access to information: Regarding HIV / AIDS; Provided by facilities licensed or operated by the [facility] Office of Mental Health; or Provided by the [facility] Office for People With Developmental Disabilities. If such information is present, then the following [facility] mandated warning applies: This information [...] ) Propensity to adverse reactions ZIPRASIDONE ZIPRASIDONE [facility] Propensity to adverse reactions TRIMETHOPRIM Trimethoprim [facility] Propensity to adverse reactions SULFAMETHOXAZOLE Sulfamethoxazole [facility] Propensity to adverse reactions PENICILLINS Penicillin [facility] Propensity to adverse reactions HALOPERIDOL HALOPERIDOL [facility] Propensity to adverse reactions DEXTROAMPHETAMINE DEXTROAMPHETAMINE [facility] Drug allergy Drug allergy AMOXICLIIN SWELLING, HIVES [facility] Drug allergy olanzapine [facility] Drug allergy trimethoprim trimethoprim "BLISTERS IN MOUTH" [facility] Drug allergy sulfamethoxazole sulfamethoxazole "BLISTERS IN MOUTH" [facility] Drug allergy haloperidol haloperidol [facility] Drug allergy Sulfa (Sulfonamide Antibiotics) Sulfa (Sulfonami de Antibiotics) "BLISTERS IN MOUTH" [facility] Drug allergy Penicillins Penicillins SWELLING, HIVES [facility] Encounters Encounter Providers Location Date Indications Data Source(s ) Outpatient Attender: KAROLYN VAN GRAPHIC ART TECHNICIAN 11/24/2020 03: 20:00 PM EDT [facility] Francesco Ritchie MD: [address] [place] [id number], Ph. Attender: Francesco Ritchie MD [facility] Medical 11/12/2020 12:00:00 AM EDT [facility]IAS ([facility]) OFFICE VISIT, ESTOutpatient Attender: Nora [place]KE [facility] 11/05/2020 01:30:00 PM EDT - 11/05/2020 01:30:00 PM EDT Delusional disorders [facility] ([facility]) Delusional disorders Emergency Attender: EVONNE HAGENConsultant: STAFF NON 11/03/2020 11:35:00 AM EDT - 11/03/2020 03:27:00 PM EDT [facility] Patient discharged. Outpatient [facility] 10/12/2020 12:00:00 AM EDT eCW1 ([facility]) Emergency Attender: Matt Ruby MDConsultant: STAFF NON 10/03/2020 06:06:00 PM EDT - 10/03/2020 07:27:00 PM EDT [facility] Patient discharged. Inpatient Attender: EVANGELICALELIDIA Elizabeth nder: MARY JO PARADA MDAdmitter: MARY JO PARADA MDReferrer: ANAHI ESCALERA NP [id number] 09/11/2020 03:40:00 PM EDT - 09/29/2020 03:01:00 PM EDT [facility] Patient discharged. Emergency Attender: ZAYNAB STEVEN MDConsultant: STAFF NON 09/09/2020 04:46:00 PM EDT - 09/09/2020 09:35:00 PM EDT [facility] Patient discharged. Outpatient Attender: KAROLYN VAN NP 09/03/2020 11: 00:00 AM EDT [facility] Outpatient [facility] 08/31/2020 12:00:00 AM EDT eCW1 ([facility]) Inpatient Attender: MIRLANDE Elizabeth nder: GENO GAMBLE MDAdmitter: EVANGELICALELIDIA FUNEZ MDReferrer: KARI OTERO MD [id number] 08/25/2020 03:33:00 PM EDT - 08/27/2020 12:52:00 PM EDT [facility] Patient discharged. Inpatient Attender: MIRLANDE Elizabeth nder: MARY JO PARADA MDAttender: Hiral Liriano MDAdmitter: MARY JO PARADA MDReferrer: MARY JO PARADA MD [id number] 08/06/2020 12:00:00 AM EDT - 08/17/2020 12:08:00 PM EDT Suicidal ideations [facility] Suicidal ideations Patient discharged. Outpatient [facility] 07/22/2020 12:00:00 AM EDT eCW1 ([facility]) Outpatient Attender: Jane Edward 07/15/2020 08:03:00 AM E DT [facility] Outpatient [facility] 07/15/2020 12:00:00 AM EDT eCW1 ([facility]) Outpatient [facility] 07/12/2020 12:00:00 AM EDT eCW1 ([facility]) Emergency Attender: EVONNE HAGENConsultant: STAFF NON 06/28/2020 07:41:00 PM EDT - 06/28/2020 09:08:00 PM EDT [facility] Patient discharged. Emergency Attender: EVONNE Pottsltant: STAFF NON 06/16/2020 04:22:00 PM EDT - 06/16/2020 08:01:00 PM EDT [facility] Patient discharged. Outpatient Attender: Jane Denson: JANE EDWARD 06/16/2020 09:02:00 AM EDT [facility] Outpatient [facility] 06/14/2020 12:00:00 AM EDT eCW1 ([facility]) Outpatient [facility] 06/11/2020 12:00:00 AM EDT eCW1 ([facility]) Outpatient Attender: Jane Denson: JANE EDWARD 05/26/2020 05:00:00 PM EDT [facility] Outpatient [facility] 05/26/2020 12:00:00 AM EDT eCW1 ([facility]) Outpatient [facility] 05/24/2020 12:00:00 AM EDT eCW1 ([facility]) Outpatient [facility] 05/24/2020 12:00:00 AM EDT eCW1 ([facility]) Outpatient [facility] 05/14/2020 12:00:00 AM EDT eCW1 ([facility]) Outpatient [facility] 05/04/2020 12:00:00 AM EST eCW1 ([facility]) Outpatient Attender: KAROLYN VAN NP 04/29/2020 01: 20:00 PM EST [facility] Outpatient [facility] 04/28/2020 12:00:00 AM EST eCW1 ([facility]) Outpatient [facility] 04/28/2020 12:00:00 AM EST eCW1 ([facility]) Outpatient [facility] 04/23/2020 12:00:00 AM EST eCW1 ([facility]) Outpatient Attender: Jane Denson: JANE EDWARD 04/20/2020 03:00:00 PM [facility] Outpatient [facility] 04/19/2020 12:00:00 AM EST eCW1 ([facility]) Outpatient [facility] 04/16/2020 12:00:00 AM EST eCW1 ([facility]) Outpatient Attender: FAHAD MOONEY MD 04/15/2020 09:4 5:00 AM [facility] Outpatient [facility] 04/12/2020 12:00:00 AM EST eCW1 ([facility]) Outpatient [facility] 04/12/2020 12:00:00 AM EST eCW1 ([facility]) Outpatient [facility] 04/08/2020 12:00:00 AM EST eCW1 ([facility]) Outpatient [facility] 04/08/2020 12:00:00 AM EST eCW1 ([facility]) Outpatient [facility] 04/08/2020 12:00:00 AM EST eCW1 ([facility]) Outpatient [facility] 04/05/2020 12:00:00 AM EST eCW1 ([facility]) Outpatient Attender: NATHAN PAUL PA-C 03/30/2020 10:30:00 AM [facility] Outpatient Attender: Shira Youngblood PA-C 03/30/2020 10:18 :00 AM [facility] Outpatient [facility] 03/30/2020 12:00:00 AM EST eCW1 ([facility]) Outpatient Attender: Jane EdwardAttender: JANE EDWARD 03/23/2020 02:00:00 PM [facility] Outpatient Attender: Jane EdwardAttender: JANE EDWARD 03/17/2020 10:30:00 AM [facility] Outpatient Attender: Jane Denson: JANE EDWARD 03/11/2020 04:00:00 PM [facility] Outpatient Attender: FAHAD MOONEY MD 03/11/2020 06:3 0:00 AM [facility] Admission cancelled. Disregard status an d admitted date. Outpatient Attender: KAROLYN VAN NP 03/09/2020 03: 40:00 PM [facility] Outpatient [facility] 03/03/2020 12:00:00 AM EST eCW1 ([facility]) Outpatient Attender: Shira Becerraferrer: Shira Youngblood PA-C EMERGENCY ROOM-LAB 03/01/2020 04:49:00 PM EST - 03/01/2020 04:49:00 PM [facility] Outpatient Attender: Shira Youngblood PA-C 03/01/2020 03:45 :00 PM [facility] Outpatient [facility] 03/01/2020 12:00:00 AM EST eCW1 ([facility]) Outpatient [facility] 03/01/2020 12:00:00 AM EST eCW1 ([facility]) Outpatient Attender: KAROLYN VAN NP 02/18/2020 02: 40:00 PM [facility] Outpatient Attender: Kassidy SERRANO 02/18/2020 10:00:0 0 AM [facility] Outpatient [facility] 02/18/2020 12:00:00 AM EST eCW1 ([facility]) Outpatient [facility] 02/10/2020 12:00:00 AM EST eCW1 ([facility]) Outpatient [facility] 02/03/2020 12:00:00 AM EST eCW1 ([facility]) Outpatient [facility] 01/14/2020 12:00:00 AM EST eCW1 ([facility]) Outpatient [facility] 01/06/2020 12:00:00 AM EST eCW1 ([facility]) Outpatient Attender: JOHNATHON PATEL 01/02/2020 10:06:00 A [facility] Outpatient [facility] 01/02/2020 12:00:00 AM EST eCW1 ([facility]) Outpatient Attender: Jane EdwardAttender: JANE EDWARD 01/01/2020 02:30:00 PM [facility] Outpatient Attender: KAROLYN VAN NP 12/24/2019 11: 00:00 AM [facility] Outpatient Attender: Shira Youngblood PA-C 12/24/2019 08:24 :00 AM [facility] Outpatient [facility] 12/24/2019 12:00:00 AM EDT eCW1 ([facility]) Outpatient Attender: Jane EdwardAttender: JANE EDWARD 12/23/2019 01:54:00 PM EDT [facility] Outpatient [facility] 12/23/2019 12:00:00 AM EDT eCW1 ([facility]) Outpatient Attender: Mavis DIEGO 12/12/2019 11:3 5:02 AM EDT [facility] Outpatient Attender: Green Pondtai EdwardAttender: JANE EDWARD 12/11/2019 03:00:00 PM EDT [facility] Outpatient [facility] 12/09/2019 12:00:00 AM EDT eCW1 ([facility]) Outpatient Attender: Mavis DIEGO 12/05/2019 01:2 6:01 PM EDT [facility] Inpatient Attender: PRERNA RIOS MDAdmitter: PRERNA Alvarado MD ER-3RD 12/05/2019 10:08:00 AM EDT - 12/10/2019 01:07:00 PM EDT [facility]spital Patient discharged. Outpatient Attender: NATHAN PAUL PA-C 12/05/2019 09:03:00 AM EDT [facility] Admission cancelled. Disregard status an d admitted date. Inpatient Attender: BEHZAD SOTO MD Attender: BEHZAD SOTO MDAttender: DIOGENES BUENO MDAttender: DIOGENES BUENO MDAdmitter: BEHZAD SOTO MD ER-ICU 12/04/2019 11:06:00 PM EDT - 12/05/2019 10:03:00 AM EDT [facility] Patient discharged. Emergency Attender: GINGER Salaser: Melissa Youngblood PA-C EMERGENCY ROOM-ER 12/04/2019 04:21:00 PM EDT - 12/04/2019 08:40:00 PM EDT [facility] Patient discharged. Outpatient Attender: KAROLYN VAN NP 12/04/2019 03: 11:00 PM EDT [facility] Outpatient Attender: Mavis PATEL 11/29/2019 07:0 4:03 PM EDT [facility] Outpatient Attender: JOHNATHON PATEL 11/29/2019 07:04:01 P M EDT [facility] Outpatient Attender: Mavis DIEGO FP 11/24/2019 12:2 9:00 PM EDT [facility] Emergency Attender: EVONNE Lackeyant: STAFF CAMPOVERDE 11/07/2019 12:19:00 AM EDT - 11/07/2019 04:20:00 AM EDT [facility] Patient discharged. Outpatient [facility] 11/07/2019 12:00:00 AM EDT eCW1 ([facility]) Outpatient Attender: Mavis DIEGO FP 11/04/2019 02:2 6:02 PM EDT [facility] Outpatient Attender: KAROLYN VAN NP [facility]/04[facility]2019 [facility] Mavis DIEGO FP 11/02/2019 01:2 6:00 PM EDT [facility] Outpatient Attender: Mavis DIEGO 10/31/2019 06:0 2:00 PM EDT [facility] Outpatient Attender: JOHNATHON DIEGO 10/31/2019 06:01:59 P M EDT [facility] Outpatient Attender: Mavis DIEGO 10/31/2019 06:0 1:03 PM EDT [facility] Outpatient Attender: JOHNATHON PATEL 10/31/2019 06:01:01 P M EDT [facility] Outpatient Attender: Shira Youngblood PA-C 10/31/2019 09:06 :00 AM EDT [facility] Outpatient [facility] 10/31/2019 12:00:00 AM EDT eCW1 ([facility]) Outpatient Attender: Jane EdwardAttender: JANE EDWARD 10/27/2019 11:00:00 AM [facility] Outpatient Attender: KAROLYN VAN NP 10/21/2019 03: 20:00 PM [facility] Outpatient Attender: KATRIN BLUM MDAttender: KATRIN BLUM 10/06/2019 09:37:00 AM [facility] Outpatient Attender: KATRIN BLUM MDAttender: KATRIN BLUM 08/04/2019 09:42:00 AM [facility] Outpatient Attender: KATRIN BLUM MDAttender: KATRIN BLUM 07/07/2019 03:30:00 PM [facility] Outpatient Attender: KATRIN BLUM MDAttender: KATRIN BLUM 04/21/2019 10:29:00 AM [facility] Outpatient Attender: MAHESH RECINOS MDAttender: MAHESH RECINOS 02/24/2019 01:46:00 PM [facility] Outpatient Attender: Jane EdwardAttender: JANE EDWARD 02/21/2019 10:00:00 AM [facility] Outpatient Attender: MAHESH RECINOS MDAttender: MAHESH RECINOS 02/10/2019 02:18:00 PM [facility] Inpatient Attender: CHAO GUERRA MDAttdoug harjinder: PRERNA RIOS MDAdmitter: PRERNA RIOS MD ER-3RD 12/23/2018 04:01:00 PM EDT - 12/26/2018 01:22:00 PM T [facility] Patient discharged. Inpatient Attender: ONDINA RAMIREZ MDAdmitter: ONDINA RAMIREZ MD E R-ICU 12/19/2018 05:26:00 PM EDT - 12/23/2018 03:42:00 PM EDT [facility] Patient discharged. Emergency Attender: MATIAS MIKE EMERGENCY ROOM-ER 03:51:00 PM EDT - 12/19/2018 04:47:00 PM [facility] Patient discharged. Medications Medication Brand Name [...] propionate 0.05 MG/ACTUAT Metered Dose Warren al Eldred 50 mcg/actuation FLUTICASONE PROPIONATE 11/02/2020 12:00:00 AM [...] active Take 1 tablet by mouth d [facility] Buprenorphine 8 MG / Naloxone 2 MG Oral Strip buprenorphine-naloxone (SUBOXONE) 8-2 MG per sublingual film 2 Film buprenorphine-naloxone (SUBOXONE) 8-2 MG per sublingual film 2 Film 09/29/2020 09:00:00 AM EDT 2 {film} Sublingual active 2 Film, Sublingual, Daily Standard, First dose (after last reorder) on Sun09/29/20 at 0900, For 7 days [facility] Medication administered onsite 1,000 mg 09/29/2020 12:00:00 [...] tablet by cali th Three times daily [facility] Levetiracetam 1000 MG Oral Tablet levETIRAcetam 1000 M G Oral Tablet (KEPPRA) levETIRAcetam 1000 MG Oral Tablet (KEPPRA) 09/29/2020 12:00:00 AM EDT 1000 mg Oral active Take 1 tablet by cali th Two Times Daily [facility] Chlorpromazine hydrochloride 100 MG Oral Tablet chlorproMAZINE HCl 100 MG Oral Tablet (THORAZINE) chlorproMAZINE HCl 100 MG Oral Tablet (THORAZINE) 05/2020 12:00:00 AM EDT 100 mg Oral active Take 1 tablet by mouth Two Times Daily [facility] 600 mg 09/29/2020 12:00:00 AM EDT tablet [...] on Sun09/27/20 at 2100, For 30 doses [facility] Medication administered onsite chlorproMAZINE (THORAZINE) injection 100 mg [id number] 09/27/2020 01:00:00 PM EDT 100 mg Intramuscular completed 100 mg, Intramuscular, Once, On Sun09/27/20 at 1300, For 1 dose
May be given over objection
[facility] Medication administered onsite chlorproMAZINE (THORAZINE) injection 100 mg [id number] 09/25/2020 02:00:00 PM EDT 100 mg Intramuscular completed 100 mg, Intramuscular, Once, On 09/25/20 at 1400, For 1 dose [facility] Medication administered onsite diphenhydrAMINE (BENADRYL) injection 50 mg [id number] 09/25/2020 02:00:00 PM EDT 50 mg Intramuscular completed 50 mg, Intramuscular, Once, On 09/25/20 at 1400, For 1 dose [facility] Medication administered onsite olanzapine 5 MG/ML Injectable Solution OLANZapine (ZYP REXA) injection 10 mg OLANZapine (ZYPREXA) injection 10 mg 09/25/2020 09:15:00 AM EDT 10 mg Intramuscular completed 10 mg, Intr amuscular, Once, On 09/25/20 at 0915, For 1 dose
Reconstitute 10 mg vial with 2.1 mL SWFI; resulting solution is ~5 mg/mL; Use within 1 hour following reconstitution.
[facility] Medication administered onsite Chlorpromazine hydrochloride 100 MG Oral Tablet chlorproMAZINE (THORAZINE) tablet 100 mg chlorproMAZINE (THORAZINE) tablet 100 mg 09/23/2020 10 :00:00 PM EDT 100 mg Oral aborted 100 mg, Oral, Nightly, First dose (after last modification) on Sun09/23/20 at 2200, For 28 doses [facility] Medication administered onsite gabapentin 300 MG Oral Capsule gabapentin (NEURONTIN) capsule 600 mg gabapentin (NEURONTIN) capsule 600 mg 09/23/2020 03:00:00 PM EDT 600 mg Oral active 600 mg, Oral, Three Times D aily Standard, Indications: substance use anxiety, First dose (after last modification) on Hcari 09/23/20 at 1500, For 57 doses [facility] Medication administered onsite Chlorpromazine hydrochloride 50 MG Oral Tablet chlorproMAZINE (THORAZINE) tablet 50 mg chlorproMAZINE (THORAZINE) tablet 50 mg 09/21/2020 10:00:00 PM E DT 50 mg Oral aborted 50 mg, Ora l, Nightly, First dose on Sun09/21/20 at 2200, For 30 days [facility] Medication administered onsite Ibuprofen 400 MG Oral Tablet ibuprofen (MOTRIN) tablet 400 mg ibuprofen (MOTRIN) tablet 400 mg 09/21/2020 09:30:00 PM EDT 400 mg Oral comp leted 400 mg, Oral, Once, On Sun09/21/20 at 2130, For 1 dose
Take with food.
[facility] Medication administered onsite Chlorpromazine hydrochloride 25 MG Oral Tablet chlorproMAZINE (THORAZINE) tablet 25 mg chlorproMAZINE (THORAZINE) tablet 25 mg 09/21/2020 03:00:00 PM E DT 25 mg Oral aborted 25 mg, Ora l, 2 Times Daily, First dose (after last modification) on Sun09/21/20 at 1500, For 30 doses [facility] Medication administered onsite Citalopram 20 MG Oral Tablet citalopram (CELEXA) table t 10 mg citalopram (CELEXA) tablet 10 mg 09/19/2020 09:00:00 AM EDT 10 mg Oral active 10 mg, Oral, Daily Standard, First dose on Sun09/19/20 at 0900, For 30 days [facility] Medication administered onsite Chlorpromazine hydrochloride 25 MG Oral Tablet chlorproMAZINE (THORAZINE) tablet 25 mg chlorproMAZINE (THORAZINE) tablet 25 mg 09/15/2020 12:15:00 PM E DT 25 mg Oral aborted 25 mg, Ora l, Three Times Daily Standard, First dose on Sun09/15/20 at 1215, For 30 days [facility] Medication administered onsite Nicotine 2 MG Oral Lozenge nicotine (NICORETTE) lozeng e 2 mg nicotine (NICORETTE) lozenge 2 mg 09/15/2020 10:22:02 AM EDT 2 mg Mouth/Th roat active 2 mg, Mouth/Throat, Every 2 hours PRN, Smoking cessation, Starting on Sun09/15/20 at 1022, For 30 days
Should not be chewed or swallowed; allow to dissolve slowly (~20-30 minutes)
[facility] Medication administered onsite gabapentin 400 MG Oral Capsule gabapentin (NEURONTIN) capsule 400 mg gabapentin (NEURONTIN) capsule 400 mg 09/14/2020 05:00:00 PM EDT 400 mg Oral aborted 400 mg, Oral, Three Times D aily Standard, Indications: substance use anxiety, First dose (after last modification) on Sun09/14/20 at 1700, For 84 doses [facility] Medication administered onsite Acetaminophen 325 MG Oral [...] mg from all sources in 24 hours.
[facility] Medication administered onsite 24 HR Nicotine 0.875 MG/HR Transdermal P atch nicotine (NICODERM CQ) 21 MG/24HR 1 patch nicotine (NICODERM CQ) 21 MG/24HR 1 patch 09/13/2020 09:00:00 AM EDT 1 {patch} Transdermal aborted 1 patch, Transdermal, Administer over 24 Hours, Daily Standard, First dose on Sun09/13/20 at 0900, For 30 days [facility] Medication administered onsite Bisacodyl 10 MG Rectal Suppository bisacodyl (DULCOLAX ) suppository 10 mg bisacodyl (DULCOLAX) suppository 10 mg 09/13/2020 08:49:03 AM EDT 10 mg Rectal active 10 mg, Rectal, Every 72 hours PRN, Constipation, Starting on Sun09/13/20 at 0849, For 30 days
Hold if patient has had BM within the past 2 days.
[facility] Medication administered onsite Docusate Sodium 100 MG Oral Capsule docusate sodium (C OLACE) capsule 100 mg docusate sodium (COLACE) capsule 100 mg 09/13/2020 08:49:03 AM EDT 100 mg Oral active 100 mg, Oral, 2 Times Daily PRN, Constipation, Starting on Sun09/13/20 at 0849, For 30 days [facility] Medication administered onsite sennosides, [facility] 8.6 MG Oral Tablet senna tablet 2 tablet sen na tablet 2 tablet 09/13/2020 08:49:03 AM EDT 2 {tbl} Oral active 2 tablet, Oral, Nightly PRN, Constipation, Starting on Sun09/13/20 at 0849, For 30 days [facility] Medication administered onsite Magnesium Hydroxide 80 MG/ML [...] creatinine > 2 notify provider before administering.
[facility] Medication administered onsite Asenapine 5 MG Sublingual Tablet Asenapine Maleate (SA PHRIS) SL tablet 5 mg Asenapine Maleate (SAPHRIS) SL tablet 5 mg 09/12/2020 09:00:00 PM EDT 5 mg Sublingual aborted 5 mg, Sublingu al, 2 Times Daily, First dose on 09/12/20 at 2100, For 30 days [facility] Medication administered onsite gabapentin 300 MG Oral Capsule gabapentin (NEURONTIN) capsule 300 mg gabapentin (NEURONTIN) capsule 300 mg 09/12/2020 05:00:00 PM EDT 300 mg Oral aborted 300 mg, Oral, Three Times D aily Standard, Indications: substance use anxiety, First dose on 09/12/20 at 1700, For 30 days [facility] Medication administered onsite Trazodone Hydrochloride 50 MG Oral Tablet trazodone (D ESYREL) tablet 50 mg trazodone (DESYREL) tablet 50 mg 09/12/2020 12:11:29 PM EDT 50 mg Oral active 50 mg, Oral, Nightly PRN, Sleep, Starting on 09/12/20 at 1211, For 30 days [facility] Medication administered onsite Hydroxyzine Hydrochloride 50 MG Oral Tablet hydrOXYzin e (ATARAX) tablet 50 mg hydrOXYzine (ATARAX) tablet 50 mg 09/12/2020 12:10:58 PM EDT 50 mg Oral active 50 mg, Oral, Every 6 hours PRN, Itching, Starting on 09/12/20 at 1210, For 700 hours [facility] Medication administered onsite Clonidine Hydrochloride 0.1 MG Oral Tablet cloNIDine ( CATAPRES) tablet 0.1 mg cloNIDine (CATAPRES) tablet 0.1 mg 09/12/2020 12:10:43 PM EDT 0.1 mg Oral active Attention Deficit Hyperactivity Disorder 0.1 mg, Oral, Three Times Daily-PRN, anxiety, Indications: Attention Deficit Hyperactivity Disorder, Starting on 09/12/20 at 1210, For 30 days [facility] Attention Deficit Hyperactivity Disorder Medication administered onsite Levetiracetam 500 MG Oral Tablet levetiracetam (KEPPRA ) tablet 1,000 mg levetiracetam (KEPPRA) tablet 1,000 mg 09/11/2020 09:00:00 PM EDT 1000 mg Oral active 1,000 mg, Oral , 2 Times Daily, First dose on 09/11/20 at 2100, For 81 doses [facility] Medication administered onsite Buprenorphine 8 MG / Naloxone 2 MG Oral Strip buprenorphine-naloxone (SUBOXONE) 8-2 MG per sublingual film 2 Film buprenorphine-naloxone (SUBOXONE) 8-2 MG per sublingual film 2 Film 09/11/2020 08:45:00 PM EDT 2 {film} Sublingual completed 2 Film, Sublingual, Daily Standard, First dose (after last modification) on 09/11/20 at 2045, For 18 doses [facility] Medication administered onsite benztropine mesylate 1 MG Oral Tablet benztropine (COG ENTIN) tablet 1 mg benztropine (COGENTIN) tablet 1 mg 09/11/2020 04:38:18 PM EDT 1 mg Oral active 1 mg, Oral, 2 Times Daily PRN, Tremor, Starting on 09/11/20 at 1638, For 30 days [facility] Medication administered onsite 100,000 unit/mL 09/02/2020 12:00:00 [...] Place 2 Film under the tongue daily [facility] Diphenhydramine Hydrochloride 25 MG Oral Capsule diphenhydrAMINE (BENADRYL) capsule 25 mg diphenhydrAMINE (BENADRYL) capsule 25 mg 08/17/2020 10 :11:01 AM EDT 25 mg Oral active 25 mg, O ral, Nightly PRN, Sleep, Starting on Sun08/17/20 at 1011, For 30 days [facility] Medication administered onsite Buprenorphine 8 MG / Naloxone 2 MG Subli ngual Tablet Buprenorphine HCl-Naloxone HCl 8-2 MG Sublingual Tablet Sublingual (SUBOXONE) Buprenorphine HCl-Naloxone HCl 8-2 MG Sublingual Tablet Sublingual (SUBOXONE) 08/17/2020 12:00:00 AM EDT 1 {tbl} Sublingual active Place 1 t ablet under the tongue Two Times Daily Use supply at home, Max Daily Dose: 2 tablets [facility] Asenapine 10 MG Sublingual Tablet Asenap ine Maleate 10 MG Sublingual Tablet Sublingual (SAPHRIS) Asenapine Maleate 10 MG Sublingual Table t Sublingual (SAPHRIS) 08/17/2020 12:00:00 AM EDT 10 mg Sublingual abor keven Place 1 tablet under the tongue Two Times Daily [facility] 10 mg 08/17/2020 12:00:00 AM EDT tablet 30 TAKE ONE TABLET BY MOUTH EVERY DAY TAKE ONE TABLET BY MOUTH EVERY DAY SOLD: 08/17/2020 [facility] Clonidine Hydrochloride 0.2 MG Oral Tabl et cloNIDine HCl 0.2 MG Oral Tablet (CATAPRES) cloNIDine HCl 0.2 MG Oral Tablet (CATAPRES) 08/17/2020 12:00:00 AM EDT 0.2 mg Oral active Take 1 tablet by mouth daily as needed [facility] gabapentin 300 MG Oral Capsule Gabapentin 300 MG Oral Capsule (NEURONTIN) Gabapentin 300 MG Oral Capsule (NEURONTIN) 08/17/2020 12:00:00 AM EDT 600 mg Oral aborted Take 2 capsules by m outh Three times daily [facility] benztropine mesylate 1 MG Oral Tablet Be nztropine Mesylate 1 MG Oral Tablet (COGENTIN) Benztropine Mesylate 1 MG Oral Tablet (COGENTIN) 08/17 12:00:00 AM EDT 1 mg Oral active Take 1 t ablet by mouth Two times daily as needed [facility] 25 mg 08/17/2020 12:00:00 AM EDT capsule 15 TAKE 1 CAPSULE BY MOUTH NIGHTLY NEEDED FOR SLEEP FOR UP TO 10 DAYS TAKE 1 CAPSULE BY MOUTH NIGHTLY NEEDE D FOR SLEEP FOR UP TO 10 DAYS SOLD: 08/17/2020 [facility] Diphenhydramine Hydrochloride 25 MG Oral Capsule diphenhydrAMINE HCl 25 MG Oral Capsule (BENADRYL) diphenhydrAMINE HCl 25 MG Oral Capsule (BENADRYL) 07/28 12:00:00 AM EDT 25 mg Oral active Take 1 capsule by mouth nightly as needed for Sleep for up to 10 days [facility] 1 mg 08/17/2020 12:00:00 AM EDT tablet 30 TAKE ONE TABLET BY MOUTH TWICE A DAY NEEDED TAKE ONE TABLET BY MOUTH TWICE A DAY NEEDED SOLD: 08/17/2020 [facility] 300 mg 08/17/2020 12:00:00 AM EDT capsule 84 TAKE TWO CAPSULES BY MOUTH THREE TIMES A DAY TAKE TWO CAPSULES BY MOUTH THREE TIMES A DAY SOLD: [employer] Clonidine Hydrochloride 0.2 MG Oral Tablet CLONIDINE HCL 08/17/2020 12:00:00 AM EDT tablet 15 TAKE ONE TABLET BY MOUTH CORWIN DAY NEEDED TAKE ONE TABLET BY MOUTH EVERY DAY NEEDED SOLD: 08/17/2020 [employer] [facility] benztropine mesylate 1 MG Oral Tablet benztropine (COG ENTIN) tablet 1 mg benztropine (COGENTIN) tablet 1 mg 08/16/2020 09:00:00 PM EDT 1 mg Oral active 1 mg, Oral, 2 Times Daily, First dose (after last modification) on Sun08/16/20 at 2100, For 60 doses [facility] Medication administered onsite Asenapine 10 MG Sublingual Tablet Asenapine Maleate (S APHRIS) SL tablet 10 mg Asenapine Maleate (SAPHRIS) SL tablet 10 mg 08/11/2020 08:00:00 PM EDT 10 mg Sublingual active 10 mg, Subling ual, 2 Times Daily, First dose (after last modification) on Sun08/11/20 at 2000, For 53 doses [facility] Medication administered onsite olanzapine 10 MG Disintegrating Oral Tab let OLANZapine zydis (ZYPREXA) disintegrating tablet 10 mg OLANZapine zydis (ZYPREXA) disintegratin g tablet 10 mg 08/11/2020 03:15:00 PM EDT 10 mg Oral completed 10 mg, Oral, Once, On Sun08/11/20 at 1515, For 1 dose [facility] Medication administered onsite 50 mg 08/09/2020 12:00:00 [...] on Sun08/08/20 at 1830, For 30 days [facility] Medication administered onsite Lurasidone Hydrochloride 40 MG Oral Tablet lurasidone HCl (LATUDA) tablet 20 mg lurasidone HCl (LATUDA) tablet 20 mg 08/07/2020 09:00:00 AM EDT 20 mg Oral aborted 20 mg, Oral, Burt ly Standard, First dose on Sun08/07/20 at 0900, For 30 days
Administer with food.
[facility] Medication administered onsite 1,000 mg 08/07/2020 12:00:00 [...] on Sun08/06/20 at 2100, For 30 days [facility] Medication administered onsite gabapentin 300 MG Oral Capsule gabapentin (NEURONTIN) capsule 600 mg gabapentin (NEURONTIN) capsule 600 mg 08/06/2020 09:00:00 PM EDT 600 mg Oral active Neuropathic Pain 600 mg, Oral, Three Times D aily Standard, Indications: Neuropathic Pain, First dose on Sun08/06/20 at 2100, For 30 days [facility] Neuropathic Pain Medication administered onsite Buprenorphine 8 MG / Naloxone 2 MG Subli ngual Tablet buprenorphine-naloxone (SUBOXONE) 8-2 MG per sublingual tablet 1 tablet buprenorphine-naloxone (SUBOXONE) 8-2 MG per sublingual tablet 1 tablet 08/06/2020 09:00:00 PM EDT Sublingual active 1 tablet (8 mg of buprenorphine), Sublingual, 2 Times Daily, First dose on Sun08/06/20 at 2100, For 26 doses [facility] Medication administered onsite Hydroxyzine Hydrochloride 50 MG Oral Tablet hydrOXYzin e (ATARAX) tablet 50 mg hydrOXYzine (ATARAX) tablet 50 mg 08/06/2020 07:39:32 PM EDT 50 mg Oral active 50 mg, Oral, Every 6 hours PRN, Anxiety, Starting on Sun08/06/20 at 1939, For 30 days [facility] Medication administered onsite Trazodone Hydrochloride 50 MG Oral Tablet trazodone (D ESYREL) tablet 50 mg trazodone (DESYREL) tablet 50 mg 08/06/2020 07:39:25 PM EDT 50 mg Oral active 50 mg, Oral, Nightly PRN, Sleep, Starting on Sun08/06/20 at 1939, For 30 days [facility] Medication administered onsite Aluminum Hydroxide 40 MG/ML [...] on Sun08/06/20 at 1939, For 30 days [facility] Medication administered onsite Magnesium Hydroxide 80 MG/ML [...] creatinine > 2 notify provider before administering.
[facility] Medication administered onsite Acetaminophen 325 MG Oral [...] mg from all sources in 24 hours.
[facility] Medication administered onsite Clonidine Hydrochloride 0.2 MG Oral Tablet cloNIDine ( CATAPRES) tablet 0.2 mg cloNIDine (CATAPRES) tablet 0.2 mg 08/06/2020 07:36:40 PM EDT 0.2 mg Oral active 0.2 mg, Oral, Three Times Daily-PRN, anxiety, Indications: anxiety, Starting on Sun08/06/20 at 1936, For 30 days [facility] Medication administered onsite benztropine mesylate 1 MG Oral Tablet benztropine (COG ENTIN) tablet 1 mg benztropine (COGENTIN) tablet 1 mg 08/06/2020 07:36:33 PM EDT 1 mg Oral aborted 1 mg, Oral, 2 Times Daily PRN, Tremor, Starting on Sun08/06/20 at 1936, For 30 days [facility] Medication administered onsite 20 mg 08/06/2020 12:00:00 [...] 600 mg by mouth Three times daily [facility] 250 mg/5 mL 07/01/2020 12:00:00 AM EDT [...] {capsule_at_bedtime} active Doxepin HCl 25 MG eCW1 ([facility]) Doxepin Hydrochloride 25 MG Oral Capsule Doxepin HCl 25 MG D oxepin HCl 25 MG 03/09/2020 12:00:00 AM EST 1.0 {capsule_at_bedtime} active Doxepin HCl 25 MG eCW1 ([facility]) Doxepin Hydrochloride 25 MG Oral Capsule Doxepin HCl 25 MG D oxepin HCl 25 MG 03/09/2020 12:00:00 AM EST 1.0 {capsule_at_bedtime} active Doxepin HCl 25 MG eCW1 ([facility]) Doxepin Hydrochloride 25 MG Oral Capsule Doxepin HCl 25 MG D oxepin HCl 25 MG 03/09/2020 12:00:00 AM EST 1.0 {capsule_at_bedtime} active Doxepin HCl 25 MG eCW1 ([facility]) Doxepin Hydrochloride 25 MG Oral Capsule Doxepin HCl 25 MG D oxepin HCl 25 MG 03/09/2020 12:00:00 AM EST 1.0 {capsule_at_bedtime} active Doxepin HCl 25 MG eCW1 ([facility]) Doxepin Hydrochloride 25 MG Oral Capsule Doxepin HCl 25 MG D oxepin HCl 25 MG 03/09/2020 12:00:00 AM EST 1.0 {capsule_at_bedtime} active Doxepin HCl 25 MG eCW1 ([facility]) Doxepin Hydrochloride 25 MG Oral Capsule Doxepin HCl 25 MG D oxepin HCl 25 MG 03/09/2020 12:00:00 AM EST 1.0 {capsule_at_bedtime} active Doxepin HCl 25 MG eCW1 ([facility]) Doxepin Hydrochloride 25 MG Oral Capsule Doxepin HCl 25 MG D oxepin HCl 25 MG 03/09/2020 12:00:00 AM EST 1.0 {capsule_at_bedtime} active Doxepin HCl 25 MG eCW1 ([facility]) Doxepin Hydrochloride 25 MG Oral Capsule Doxepin HCl 25 MG D oxepin HCl 25 MG 03/09/2020 12:00:00 AM EST 1.0 {capsule_at_bedtime} active Doxepin HCl 25 MG eCW1 ([facility]) Doxepin Hydrochloride 25 MG Oral Capsule Doxepin HCl 25 MG D oxepin HCl 25 MG 03/09/2020 12:00:00 AM EST 1.0 {capsule_at_bedtime} active Doxepin HCl 25 MG eCW1 ([facility]) Doxepin Hydrochloride 25 MG Oral Capsule Doxepin HCl 25 MG D oxepin HCl 25 MG 03/09/2020 12:00:00 AM EST 1.0 {capsule_at_bedtime} active Doxepin HCl 25 MG eCW1 ([facility]) Doxepin Hydrochloride 25 MG Oral Capsule Doxepin HCl 25 MG D oxepin HCl 25 MG 03/09/2020 12:00:00 AM EST 1.0 {capsule_at_bedtime} active Doxepin HCl 25 MG eCW1 ([facility]) Doxepin Hydrochloride 25 MG Oral Capsule Doxepin HCl 25 MG D oxepin HCl 25 MG 03/09/2020 12:00:00 AM EST 1.0 {capsule_at_bedtime} active Doxepin HCl 25 MG eCW1 ([facility]) Doxepin Hydrochloride 25 MG Oral Capsule Doxepin HCl 25 MG D oxepin HCl 25 MG 03/09/2020 12:00:00 AM EST 1.0 {capsule_at_bedtime} active Doxepin HCl 25 MG eCW1 ([facility]) Doxepin Hydrochloride 25 MG Oral Capsule Doxepin HCl 25 MG D oxepin HCl 25 MG 03/09/2020 12:00:00 AM EST 1.0 {capsule_at_bedtime} active Doxepin HCl 25 MG eCW1 ([facility]) Doxepin Hydrochloride 25 MG Oral Capsule Doxepin HCl 25 MG D oxepin HCl 25 MG 03/09/2020 12:00:00 AM EST 1.0 {capsule_at_bedtime} active [facility] Doxepin Hydrochloride 25 MG Oral Capsule Doxepin HCl 25 MG D oxepin HCl 25 MG 03/09/2020 12:00:00 AM EST 1.0 {capsule_at_bedtime} active Doxepin HCl 25 MG [facility]CW1 [facility] Doxepin Hydrochloride 25 MG Oral Capsule Doxepin HCl 25 MG D oxepin HCl 25 MG 03/09/2020 12:00:00 AM EST 1.0 {capsule_at_bedtime} active Doxepin HCl 25 MG [facility]CW1 ([facility] Doxepin Hydrochloride 25 MG Oral Capsule Doxepin HCl 25 MG D oxepin HCl 25 MG 03/09/2020 12:00:00 AM EST 1.0 {capsule_at_bedtime} active Doxepin HCl 25 MG eCW1 ([facility]) Doxepin Hydrochloride 25 MG Oral Capsule Doxepin HCl 25 MG D oxepin HCl 25 MG 03/09/2020 12:00:00 AM EST 1.0 {capsule_at_bedtime} active Doxepin HCl 25 MG eCW1 ([facility] Doxepin Hydrochloride 25 MG Oral Capsule Doxepin HCl 25 MG D oxepin HCl 25 MG 03/09/2020 12:00:00 AM EST 1.0 {capsule_at_bedtime} active Doxepin HCl 25 MG eCW1 ([facility]) Doxepin Hydrochloride 25 MG Oral Capsule Doxepin HCl 25 MG D oxepin HCl 25 MG 03/09/2020 12:00:00 AM EST 1.0 {capsule_at_bedtime} active Doxepin HCl 25 MG eCW1 ([facility]) Doxepin Hydrochloride 25 MG Oral Capsule Doxepin HCl 25 MG D oxepin HCl 25 MG 03/09/2020 12:00:00 AM EST 1.0 {capsule_at_bedtime} active Doxepin HCl 25 MG eCW1 ([facility]) Doxepin Hydrochloride 25 MG Oral Capsule Doxepin HCl 25 MG D oxepin HCl 25 MG 03/09/2020 12:00:00 AM EST 1.0 {capsule_at_bedtime} active Doxepin HCl 25 MG eCW1 ([facility]) 8-2 mg 03/03/2020 12:00:00 AM [...] activ e cloNIDine HCl 0.2 MG eCW1 ([facility]) Clonidine Hydrochloride 0.2 MG Oral Tablet Clonidine H Cl 0.2 MG Clonidine HCl 0.2 MG 12/24/2019 12:00:00 AM EDT 1.0 {tablet} activ e Clonidine HCl 0.2 MG eCW1 ([facility]) Clonidine Hydrochloride 0.2 MG Oral Tablet Clonidine H Cl 0.2 MG Clonidine HCl 0.2 MG 12/24/2019 12:00:00 AM EDT 1.0 {tablet} activ e Clonidine HCl 0.2 MG eCW1 ([facility]) Clonidine Hydrochloride 0.2 MG Oral Tablet Clonidine H Cl 0.2 MG Clonidine HCl 0.2 MG 12/24/2019 12:00:00 AM EDT 1.0 {tablet} activ e Clonidine HCl 0.2 MG eCW1 ([facility]) Clonidine Hydrochloride 0.2 MG Oral Tablet Clonidine H Cl 0.2 MG Clonidine HCl 0.2 MG 12/24/2019 12:00:00 AM EDT 1.0 {tablet} activ e Clonidine HCl 0.2 MG eCW1 ([facility]) Clonidine Hydrochloride 0.2 MG Oral Tablet Clonidine H Cl 0.2 MG Clonidine HCl 0.2 MG 12/24/2019 12:00:00 AM EDT 1.0 {tablet} activ e Clonidine HCl 0.2 MG eCW1 ([facility]) Clonidine Hydrochloride 0.2 MG Oral Tablet Clonidine H Cl 0.2 MG Clonidine HCl 0.2 MG 12/24/2019 12:00:00 AM EDT 1.0 {tablet} activ e Clonidine HCl 0.2 MG eCW1 ([facility]) Clonidine Hydrochloride 0.2 MG Oral Tablet Clonidine H Cl 0.2 MG Clonidine HCl 0.2 MG 12/24/2019 12:00:00 AM EDT 1.0 {tablet} suspe nded Clonidine HCl 0.2 MG eCW1 ([facility]) Clonidine Hydrochloride 0.2 MG Oral Tablet Clonidine H Cl 0.2 MG Clonidine HCl 0.2 MG 12/24/2019 12:00:00 AM EDT 1.0 {tablet} activ e Clonidine HCl 0.2 MG eCW1 ([facility]) Clonidine Hydrochloride 0.2 MG Oral Tablet Clonidine H Cl 0.2 MG Clonidine HCl 0.2 MG 12/24/2019 12:00:00 AM EDT 1.0 {tablet} activ e Clonidine HCl 0.2 MG eCW1 ([facility]) Clonidine Hydrochloride 0.2 MG Oral Tablet Clonidine H Cl 0.2 MG Clonidine HCl 0.2 MG 12/24/2019 12:00:00 AM EDT 1.0 {tablet} suspe nded Clonidine HCl 0.2 MG eCW1 ([facility]) Clonidine Hydrochloride 0.2 MG Oral Tablet Clonidine H Cl 0.2 MG Clonidine HCl 0.2 MG 12/24/2019 12:00:00 AM EDT 1.0 {tablet} activ e Clonidine HCl 0.2 MG eCW1 ([facility]) Clonidine Hydrochloride 0.2 MG Oral Tablet Clonidine H Cl 0.2 MG Clonidine HCl 0.2 MG 12/24/2019 12:00:00 AM EDT 1.0 {tablet} activ e Clonidine HCl 0.2 MG eCW1 ([facility]) Clonidine Hydrochloride 0.2 MG Oral Tablet Clonidine H Cl 0.2 MG Clonidine HCl 0.2 MG 12/24/2019 12:00:00 AM EDT 1.0 {tablet} activ e Clonidine HCl 0.2 MG eCW1 ([facility]) Clonidine Hydrochloride 0.2 MG Oral Tablet Clonidine H Cl 0.2 MG Clonidine HCl 0.2 MG 12/24/2019 12:00:00 AM EDT 1.0 {tablet} activ e Clonidine HCl 0.2 MG eCW1 ([facility]) Clonidine Hydrochloride 0.2 MG Oral Tablet Clonidine H Cl 0.2 MG Clonidine HCl 0.2 MG 12/24/2019 12:00:00 AM EDT 1.0 {tablet} activ e Clonidine HCl 0.2 MG eCW1 ([facility]) Clonidine Hydrochloride 0.2 MG Oral Tablet Clonidine H Cl 0.2 MG Clonidine HCl 0.2 MG 12/24/2019 12:00:00 AM EDT 1.0 {tablet} activ e Clonidine HCl 0.2 MG eCW1 ([facility]) Clonidine Hydrochloride 0.2 MG Oral Tablet Clonidine H Cl 0.2 MG Clonidine HCl 0.2 MG 12/24/2019 12:00:00 AM EDT 1.0 {tablet} activ e Clonidine HCl 0.2 MG eCW1 ([facility]) Clonidine Hydrochloride 0.2 MG Oral Tablet Clonidine H Cl 0.2 MG Clonidine HCl 0.2 MG 12/24/2019 12:00:00 AM EDT 1.0 {tablet} activ e Clonidine HCl 0.2 MG eCW1 ([facility]) Clonidine Hydrochloride 0.2 MG Oral Tablet Clonidine H Cl 0.2 MG Clonidine HCl 0.2 MG 12/24/2019 12:00:00 AM EDT 1.0 {tablet} activ e Clonidine HCl 0.2 MG eCW1 ([facility]) Clonidine Hydrochloride 0.2 MG Oral Tablet Clonidine H Cl 0.2 MG Clonidine HCl 0.2 MG 12/24/2019 12:00:00 AM EDT 1.0 {tablet} activ e Clonidine HCl 0.2 MG eCW1 ([facility]) Clonidine Hydrochloride 0.2 MG Oral Tablet Clonidine H Cl 0.2 MG Clonidine HCl 0.2 MG 12/24/2019 12:00:00 AM EDT 1.0 {tablet} activ e Clonidine HCl 0.2 MG eCW1 ([facility]) Clonidine Hydrochloride 0.2 MG Oral Tablet Clonidine H Cl 0.2 MG Clonidine HCl 0.2 MG 12/24/2019 12:00:00 AM EDT 1.0 {tablet} activ e Clonidine HCl 0.2 MG eCW1 ([facility]) Clonidine Hydrochloride 0.2 MG Oral Tablet Clonidine H Cl 0.2 MG Clonidine HCl 0.2 MG 12/24/2019 12:00:00 AM EDT 1.0 {tablet} suspe nded Clonidine HCl 0.2 MG eCW1 ([facility]) Clonidine Hydrochloride 0.2 MG Oral Tablet Clonidine H Cl 0.2 MG Clonidine HCl 0.2 MG 12/24/2019 12:00:00 AM EDT 1.0 {tablet} activ e Clonidine HCl 0.2 MG eCW1 ([facility]) Clonidine Hydrochloride 0.2 MG Oral Tablet Clonidine H Cl 0.2 MG Clonidine HCl 0.2 MG 12/24/2019 12:00:00 AM EDT 1.0 {tablet} activ e Clonidine HCl 0.2 MG eCW1 ([facility]) Clonidine Hydrochloride 0.2 MG Oral Tablet Clonidine H Cl 0.2 MG Clonidine HCl 0.2 MG 12/24/2019 12:00:00 AM EDT 1.0 {tablet} activ e Clonidine HCl 0.2 MG eCW1 ([facility]) Clonidine Hydrochloride 0.2 MG Oral Tablet Clonidine H Cl 0.2 MG Clonidine HCl 0.2 MG 12/24/2019 12:00:00 AM EDT 1.0 {tablet} activ e Clonidine HCl 0.2 MG eCW1 ([facility]) Clonidine Hydrochloride 0.2 MG Oral Tablet Clonidine H Cl 0.2 MG Clonidine HCl 0.2 MG 12/24/2019 12:00:00 AM EDT 1.0 {tablet} activ e Clonidine HCl 0.2 MG eCW1 ([facility]) Clonidine Hydrochloride 0.2 MG Oral Tablet Clonidine H Cl 0.2 MG Clonidine HCl 0.2 MG 12/24/2019 12:00:00 AM EDT 1.0 {tablet} activ e Clonidine HCl 0.2 MG eCW1 ([facility]) Clonidine Hydrochloride 0.2 MG Oral Tablet Clonidine H Cl 0.2 MG Clonidine HCl 0.2 MG 12/24/2019 12:00:00 AM EDT 1.0 {tablet} activ e Clonidine HCl 0.2 MG eCW1 ([facility] jimena) Clonidine Hydrochloride 0.2 MG Oral Tablet Clonidine H Cl 0.2 MG Clonidine HCl 0.2 MG 12/24/2019 12:00:00 AM EDT 1.0 {tablet} activ e Clonidine HCl 0.2 MG eCW1 ([facility] jimena) Clonidine Hydrochloride 0.2 MG Oral Tablet Clonidine H Cl 0.2 MG Clonidine HCl 0.2 MG 12/24/2019 12:00:00 AM EDT 1.0 {tablet} activ e Clonidine HCl 0.2 MG eCW1 ([facility] jimena) Clonidine Hydrochloride 0.2 MG Oral Tablet cloNIDine H Cl 0.2 MG cloNIDine HCl 0.2 MG 12/24/2019 12:00:00 AM EDT 1.0 {tablet} activ e cloNIDine HCl 0.2 MG eCW1 ([facility] jimena) Clonidine Hydrochloride 0.2 MG Oral Tablet Clonidine H Cl 0.2 MG Clonidine HCl 0.2 MG 12/24/2019 12:00:00 AM EDT 1.0 {tablet} activ e Clonidine HCl 0.2 MG eCW1 ([facility] jimena) 300 mg 12/13/2019 12:00:00 [...] 1.0 {tablet_at_bedtime} active Clonazepam 0.5 MG eCW1 ([facility]) lisdexamfetamine dimesylate 50 MG Oral Capsule [Vyvans e] Vyvanse 50 MG Vyvanse 50 MG 11/04/2019 12:00:00 AM EDT 1.0 {capsule_in_the_morning} active Vyvanse 50 MG eCW1 ([facility]) Citalopram 20 MG Oral Tablet [Celexa] Celexa 20 MG Celexa 20 MG 11/04/2019 12:00:00 AM EDT 1.0 {tablet} active Ce elise 20 MG eCW1 ([facility]) Citalopram 20 MG Oral Tablet [Celexa] Celexa 20 MG Celexa 20 MG 11/04/2019 12:00:00 AM EDT 1.0 {tablet} active Ce elise 20 MG eCW1 ([facility]) lisdexamfetamine dimesylate 50 MG Oral Capsule [Vyvans e] Vyvanse 50 MG Vyvanse 50 MG 11/04/2019 12:00:00 AM EDT 1.0 {capsule_in_the_morning} active Vyvanse 50 MG eCW1 ([facility]) Clonazepam 0.5 MG Oral Tablet Clonazepam 0.5 MG 11/04/2019 12:00:00 AM EDT 1.0 {tablet_at_bedtime} active Clonazepam 0.5 MG eCW1 ([facility]) 2 mg 11/04/2019 12:00:00 AM EDT [...] {tablet} active Ce elise 20 MG eCW1 ([facility]) 75 mg 11/02/2019 12:00:00 AM EDT tablet 30 TAKE ONE TABLET BY MOUTH AT BEDTIME TAKE ONE TABLET BY MOUTH AT BEDTIME SOLD: 11/06/2019 [facility] 400 mg 11/02/2019 12:00:00 AM EDT capsule 90 TAKE ONE CAPSULE BY MOUTH THREE TIMES A DAY NEEDED TAKE ONE CAPSULE BY MOUTH THREE TIMES A DAY NEEDED SOLD: 11/06/2019 [facility] 1 gram 10/31/2019 12:00:00 AM EDT [...] MAXIMUM DAILY DOSE = 2 SOLD: 10/28/2019 [facility] Buprenorphine 12 MG / Naloxone 3 MG Oral Strip [Suboxone] Suboxone 12 mg-[address] ONE FILM UNDER THE TONGUE EVERY DAY MAXIMUM DAILY DOSE 1 Suboxone 12 mg-3 [address]AC E ONE FILM UNDER THE TONGUE EVERY DAY MAXIMUM DAILY DOSE 1 completed buprenorphine 12 MG / naloxone 3 MG Sublingual Film [Suboxone] MATIAS ([facility]) Sumatriptan 25 MG Oral Tablet sumatripta n 25 mg tablet TAKE ONE TABLET BY MOUTH TWICE A DAY NEEDED FOR MIGRAINE sumatriptan 25 mg tablet TAKE ONE TABLET BY MOUTH TWICE A DAY NEEDED FOR MIGRAINE completed sumatriptan 25 MG Oral Tablet [facility] ([facility]) Levetiracetam 1000 MG Oral Tablet levetiracetam (KEPPR A) 1000 MG tablet levetiracetam (KEPPRA) 1000 MG tablet 1000 mg Oral aborted Take 1,000 mg by mouth Two Times Daily [facility] Trazodone Hydrochloride 50 MG Oral Table t traZODone HCl 50 MG Oral Tablet (DESYREL) traZODone HCl 50 MG Oral Tablet (DESYREL) 50 mg Oral aborted Take 50 mg by mouth nightly [facility] Lurasidone Hydrochloride 40 MG Oral Tabl et Lurasidone HCl 40 MG Oral Tablet (LATUDA) Lurasidone HCl 40 MG Oral Tablet (LATUDA) 20 mg Oral aborted Take 20 mg by mouth daily [facility] gabapentin 300 MG Oral Capsule Gabapentin 300 MG Oral Capsule (NEURONTIN) Gabapentin 300 MG Oral Capsule (NEURONTIN) 600 mg Oral aborted Take 600 mg by mouth Three times daily [facility] 24 HR Nicotine 0.875 MG/HR Transdermal P atch Nicotine 21 MG/24HR Transdermal Patch 24 Hour (NICODERM CQ) Nicotine 21 MG/24HR Transdermal Patch 24 Hour (NICODERM CQ) 1 {patch} Transdermal aborted Place 1 patch onto the skin every 24 (twenty-four) hours [facility] Clonidine Hydrochloride 0.2 MG Oral Tabl et cloNIDine HCl 0.2 MG Oral Tablet (CATAPRES) cloNIDine HCl 0.2 MG Oral Tablet (CATAPRES) 0.2 mg O ral aborted Take 0.2 mg by mouth Three times daily as needed [facility] benztropine mesylate 1 MG Oral Tablet Be nztropine Mesylate 1 MG Oral Tablet (COGENTIN) Benztropine Mesylate 1 MG Oral Tablet (COGENTIN) 1 mg Oral aborted Take 1 mg by mouth Two times burt ly as needed [facility] Insurance Providers Payer name Policy type / Coverage type Policy ID Covered alliance party ID Covered alliance party's relationship to zhang Policy Zhang Plan Information Medicaid P [id number] S [id number] Managed Care - Community Plan [facility] P [id number] S [id number] Medicaid P [id number] Medicaid S [id number] S [id number] Managed Care - Community Plan [facility] P [id number] S [id number] Managed Care - [facility] Community Plan P [id number] S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 NEGATIVE [facility] OPIATES NEGATIVE NORMAL: NEGATIVE [facility] Phencyclidine [Presence] in Urine by Screen method NEGATIVE NOR MAL: NEGATIVE [facility] \\BLDo\\URINE DRUG SCR EEN INTERPRETATION\\BLDx\\ THE CUTOFFF LEVELS FOR DETECTION ARE FOLLOWS: AMPHETAMINES 1000 ng/ml BARBITUARATES 200 ng/ml BENZODIAZEPINES 100 ng/ml THC 50 ng/ml PHENCYCLIDINE 25 ng/ml OPIATES 300 ng/ml COCAINE 300 ng/ml ALL POSITIVES ARE CONSIDERED PRESUMPTIVE POSITIVE CONFIRMATION WILL BE PERFORMED AT PHYSICIAN REQUEST. ID Date Data Source [id number] 09/09/2020 06:04:00 PM EDT [facility] Name Value Range Interpretation Code Description Data [place] rce(s) Supporting Document(s) CBC W/AUTOMATED DIFF [facility] COMPLETE BLOOD COUNT Leukocytes [#/volume] in Blood by Automated count 9.6 10^3/uL 4.2 - 1 1.0 [facility] Erythrocytes [#/volume] in Blood by Automated count 4.34 10^6/uL 4. 20 - 5.40 [facility] Hemoglobin [Mass/volume] in Blood 12.7 g/dL 12.0 - 16.0 [facility] Hematocrit [Volume Fraction] of Blood by Automated count 38.1 % 3 7.0 - 47.0 [facility] Erythrocyte mean corpuscular volume [Entitic volume] by Auto mated count 87.8 fL 81.0 - 101 [facility] Erythrocyte mean corpuscular hemoglobin [Entitic mass] by Automated count 29.3 pg 27.0 - 34.0 [facility] Erythrocyte mean corpuscular hemoglobin concentration [Mass/volume] by Automated count 33.3 g/dL 31.0 - 36.0 [facility] Erythrocyte distribution width [Ratio] by Automated count 13.5 % 11.5 - 14.5 [facility] Platelets [#/volume] in Blood by Automated count 357 10^3/uL 150 - 45 0 [facility] Platelet mean volume [Entitic volume] in Blood by Automated count 9.6 fL 7.4 - 10.4 [facility] Neutrophils/100 leukocytes in Blood by Automated count 50.9 % 37. 0 - 80.0 [facility] Lymphocytes/100 leukocytes in Blood by Manual count 39.4 % 25.0 - 40.0 [facility] Monocytes/100 leukocytes in Blood by Automated count 7.5 % 3.0 - 8.0 [facility] Eosinophils/100 leukocytes in Blood by Automated count 1.1 % 0.0 - 7.0 [facility] Basophils/100 leukocytes in Blood by Automated count 0.6 % 0.0 - 2.5 [facility] %IG 0.5 % 0.0 - 0.0 [facility] %NRBC 0.0 % 0.0 - 0.0 [facility] Neutrophils [#/volume] in Blood by Automated count 4.86 10^3/uL 2.00 - 6.90 [facility] Lymphocytes [#/volume] in Blood by Automated count 3.77 10^3/uL 0.60 - 3.40 H [facility] Monocytes [#/volume] in Blood by Automated count 0.72 10^3/uL 0.00 - 0.90 [facility] Eosinophils [#/volume] in Blood by Automated count 0.11 10^3/uL 0.00 - 0.70 [facility] Basophils [#/volume] in Blood by Automated count 0.06 10^3/uL 0.00 - 0.20 [facility] #IG 0.05 10^3/uL 0.00 - 0.10 [facility] #NRBC 0.00 10^3/uL 0.00 - 0.00 [facility] ospital MANUAL DIFF NOT INDICATED [facility] RBC MORPH NOT INDICATED [facility] spital ID Date Data Source [id number] 09/09/2020 06:04:00 PM EDT [facility] Name Value Range Interpretation Code Description Data [place] rce(s) Supporting Document(s) [facility] SOURCE R [facility] COLOR yellow NORMAL: Yellow [facility] ospital CLARITY clear NORMAL: Clear [facility] spital Specific gravity of Urine by Test strip 1.010 1.001 - 1.030 [facility] pH 7 5 - 9 [facility] Glucose [Mass/volume] in Urine by Test strip NORM NORMAL: Negat [facility] Bilirubin.total [Presence] in Urine by Test strip NEG NORMAL: Negative [facility] Ketones [Presence] in Urine by Test strip NEG NORMAL: Negative [facility] Protein [Mass/volume] in Urine by Test strip NEG NORMAL: Negat [facility] Nitrite [Presence] in Urine by Test strip NEG NORMAL: Negative [facility] BLOOD NEG NORMAL: Negative [facility] LEUK EST NEG NORMAL: Negative [facility] Urobilinogen [Mass/volume] in Urine by Test strip NOR less kenna n 1.0 mg/dL [facility] MICROSCOPIC Not Indicate [facility] ID Date Data Source [id number] 08/27/2020 04:17:02 PM EDT [facility] Name Value Range Interpretation Code Description Data [place] rce(s) Supporting Document(s) Discharge Summary [facility] OOENXt2lMyKHGoIb33/ZYYgnFNIaa6PqKRahMUr4YPgeXQXcY3LmBCF5vF6bJAH9DBcSOnXmTkHhAeOw lbm FpVpzFQbGcXUViLkoYBoIhNWmpQtrtbNZkEB6RaPN5HHObA82nHZQdSRAaS6BuJWG4UTJ+Qd6NAKAftS TqIW7VQjhS2T0Qn3eZPx4lsi6SC7KWncXVvjSQtTrQhrhETmzH1gTY983PPKPExwESFmdq/Iwy0Qd45Y xrXcU8QdqsCrffe59biVDlds6+IhrkXkjYpB29P95L itlG/O9qpt0Lci8h0Em9CAkGOPiQH3+gPlrmp1/6qdcG3qiJQMWKkbxvDo+8oIphzKU6//D6emO5QsNZ q9SNmYIyoey3ubUZstY8eVac5Acz+v5vKBBt87DnXaqMXz2Rr6qzXk2XldIvEYnLvoiaJnWhevXe90Ti W5k8RdI4LmdahFKlTu5wiSZq0FIMZeIye7zbrWzq2x NyAZ9hWB0NtzzvPsrMNfaK+vBu5knBBnNUU2blJxAVitmS10lcSNNmyAc7a+LC7BYI9MOZ+wEE95PUfE xDR9RA0DeiXGdrToMS3xdithuiCJ+z3Fs8ShJZ8eKqv+IMbBpEamffZxTwhxjTi9EZdMlp9TQT0D9yn+ d9uYq9obIO9utD7ua0i5zOiUucC07b6i4Q6+2NodF8 zjaEHqsgrWo48i6Q/OdfoqeLZnyLWWV4VaWXjvkZu15v+rF5fiOiue8p3WOebL9K8prwrfvpT66fu07z NhGjG/ddnpNYs6KQbnTi+GyZiVUSLZsWbLqwacAmUxZ/WOETxNl4TTy2RIqpdxDauHadNjk8dyliCXtr tqbK5VvrbMsmgnV+XVjyB+qvHBbxlBjNhDXpz21Wk6 7WA1FpiBNw4SPWQuM0/QO3CKnyNifewTHB6QEKbFB/2/ae/Y6S/z4MFrHOF6yW+EJMY/03d9m3chP8y7 wzaUhT/b6e1ztgn2IBlZZWJejCQinJ5G1ZbJ6OVTPFmkyiPJmVPGfGaXexSzGfwlqgtNVrwKcWWT+Anc GjtOE4GYYG1or/pNIvPWJOIZMONZHFSQA3xfLXrJZ5 [file] AgICAgICAgICAgICAgICAgICAgICAgICAgICAgICAg ICAgICAgICAgICAgICAgICAgICAgICAgICANCiAgICAgICAgICAgICAgICAgICAgICAgICAgICAgICAg ICAgICAgICAgICAgICAgICAgICAgICAgICAgICAgICAgICAgICAgICAgICAgICAgICAgICAgICAgICAg ICAgICAgICANCiAgICAgICAgICAgICAgICAgICAgIC AgICAgICAgICAgICAgICAgICAgICAgICAgICAgICAgICAgICAgICAgICAgICAgICAgICAgICAgICAgIC AgICAgICAgICAgICAgICAgICANCiAgICAgICAgICAgICAgICAgICAgICAgICAgICAgICAgICAgICAgIC AgICAgICAgICAgICAgICAgICAgICAgICAgICAgICAg ICAgICAgICAgICAgICAgICAgICAgICAgICAgICANCiAgICAgICAgICAgICAgICAgICAgICAgICAgICAg ICAgICAgICAgICAgICAgICAgICAgICAgICAgICAgICAgICAgICAgICAgICAgICAgICAgICAgICAgICAg ICAgICAgICAgICANCiAgICAgICAgICAgICAgICAgIC AgICAgICAgICAgICAgICAgICAgICAgICAgICAgICAgICAgICAgICAgICAgICAgICAgICAgICAgICAgIC AgICAgICAgICAgICAgICAgICAgICANCiAgICAgICAgICAgICAgICAgICAgICAgICAgICAgICAgICAgIC AgICAgICAgICAgICAgICAgICAgICAgICAgICAgICAg ICAgICAgICAgICAgICAgICAgICAgICAgICAgICAgICANCiAgICAgICAgICAgICAgICAgICAgICAgICAg ICAgICAgICAgICAgICAgICAgICAgICAgICAgICAgICAgICAgICAgICAgICAgICAgICAgICAgICAgICAg ICAgICAgICAgICAgICANCiAgICAgICAgICAgICAgIC AgICAgICAgICAgICAgICAgICAgICAgICAgICAgICAgICAgICAgICAgICAgICAgICAgICAgICAgICAgIC AgICAgICAgICAgICAgICAgICAgICAgICANCiAgICAgICAgICAgICAgICAgICAgICAgICAgICAgICAgIC AgICAgICAgICAgICAgICAgICAgICAgICAgICAgICAg ICAgICAgICAgICAgICAgICAgICAgICAgICAgICAgICAgICANCjw/uKQyA0powFDjgfQ6B9ezQd3AUg4X GH0ix0QrMLBbEWlucvXxFhdIZaMfKBCrEmmJHmp8QEpbJG1FeLCeG2YyI9QaSSqhVC2BMDImYNSgrTQa BXCjCVNsBiA9DTJkUOpyPN5MdPRnLTywTPWlJEIbMs YdWTWvLPKtPCUoOOJyBINLXIErGQHcCuUcYEOeJVAgJPzgKKAEKWQ5WTCjWeBdNQHsQGCcWdIqSEWDCZ 8JKpYxW8FvhD75EJCoMCh+Ht1BYO1uf1XeKJu2KnWqTX5wjw2UOKiGMbPdY3AtfjQ1CGGcXMGmVu9NKR DeRXHhoAN2MsHbLTJEBgGpC1ZwlX34ZUWOLs4+DQpl aiLoGejZWhEuOGJwk7CoKHi6MV0FIFUpECu4vEMmPFbmV0uvpvkkXFU3mB0giknjBbxnMZLykLulJQty IG8eZJ4ZCSE4XMgfLd5bENJsACCxCdX7HLLOVE0OTBRxLGUiiGTtFNUrZLKIVR6HABwwYTC4DYHswcEt qBFtDYwzCA8ZIXDkvnEbMaJdWKYTNMc+Yu6PIY7hw6 QfREk6MGCfJC2ftr1COXhLBnWiW6D6lDLvT0A9XBzcLk4KWJKjUEAhQrGvIYRXKKcqLL5KZE2kxkL7NB 0PpFFhSKPfQKZvjJFpTYn5Q83usHWdGOkzDY2IOHX+Luz+Cp7VYOVsGMJbDYZbIaCiHNROWzZpO7NgE3 STn4OmL9DeCH08xXyhrcNwXErcSE2WSF6dDEQaEUGT UB1JtPZeuL5dnyR5UtVvRPVHEdKlF59blKVhIVYnYWDyINQrLz5IAXVtU7DyblDvbWicsaEaFPNzTKRG RT0DCLwxsdPwaZDwlNcwCV02nJuhKT1ZOc9RGbJeJP2hks1DkZHyPg1QYBG2FX4BKRAgKCQoHDSrMEC8 AOKhEhLhQWasQZJtPZRwXUB6ICOmJHSqVO1ESwNnZI GtPOU0JIbbFOWdPAQkew3NPGSmKBG2IVtfCWEiHDMmZKXbJOpzKZAaAJNwKOP0KFCqSJQsKN8KNsWjSK KfTASmIuxuSPNaEZGhph2RWUGfNFLzUTR7DzCkJHXyJYRgESmhLBJiSBO8CSA2OBMdIURxSS4TOxDsCA ZjRUsjQmdkSCNuMHUclh4NANYkLDPlAWBxTnJuQTUg OEDyYVssJFVfJSJcHlU9MHSvBSYjYP3WPoTlTOMkLHE8WsmpVMFxHTZzdf2AZLKhAFFrKLO7HFNaFGMb EYFhNPlvSHBaMTF7CfA7WFJiAXYsNO4ZGxMsSCLsEXk5NYKoVPImDOEpsh2UOIIxTNYpDwi9SzDoBSLi DGNbPEyfQOJfXXMbRMlkSQTiCZEfGP0IIuKmAKWzHg V2PeWyLZJzHIEgtq4EGHZjFNVmDfP8WWHzPPYaCEJrSPtgHTRxFFSaSTw8RFSuNPDfYE6NTtRuXBYnMy CoZIYjIHEvMPFucy9ARCQuTANvPfJfXGOqCJJiFDRlMNevPKYoASGgGrQ0BNDaFDLuZW2LHrLdXMWdIn J3LECiRGQvNVOhfk8BZYXqSQMcEiq8WxIbDMOaBWSg UYnnEWJvLGT6IHI4AVEuZPTaKU7JTmZmWBNvKshnXDDiXDSpAGOtol1ZKVEbQXKwCXDvQoAqVNYfRMDy QGqzGKLmRPV7Lfg8LFVySJYrWM6FTlUiJFLnXly6DJwaUWZaMLQnzk5YNSAzDXQiKQM5WkJgOCDmBQXt BUbnCYViSOEuVjM3JSLaWXPpFQ8UOqNlRUBuDKH2Ge ueBKMbLZEidw6WONClQIK8PPVlHNZvIQQbTKCgCVgcLEKqTCWdRGl1LNTdECAkMA5PAeUbAGKxYNYmJB WyDDFgLJMoyi0ZWNGoNXT7IuQ4YLMmXKPwZKZbHKfdJIBdLLOyImH3WAQfBVLfGJ4XHrOyEMSnNVZ0Nn rzOAIaQOUxmq8HOOXxAZP9MfxsYCUcJTBpMZEvLYxq RVIxAGQ4BMP2HSDiKYUxLY1HGzWaKQKnHDU6KeKdHSYyVUZtmj5LWOYgFYC0MOUgNPXxXDAlVVXrPHyv ACMwHAD2HSbaKUNjQKIsGH4YSaPbAUZyWIVmKTYqJEDnLZCdle5WJGCpDNV0Txf9VWWlGIPzSOOnVDix ZPVlVSE4KCUyAIVkIUTcWT5BEaQoYYSwLYldXrStSD YgWWWzcj4AMZBxAFM8OXW6CXTlVLVoACMaLHagIBUbHYD4TEq3INUzDVPgWD2FRhGiBWFpZoHgGEvdFH ItJTEvqd5TALQzTYN7RJDdUnLhEVKdDDHaJBujLJMxYZgfGSr9YGBdRXGfSP9VDpBpICNrLPZ3HghwSH QkEUJcii3CGTUvSGS4FmA6ShVhXXXeOPYgULuxYLJx LUadWvokTUHxDHRtXU1ZPdAtVTYnOPS4RjReIEGiWJUadu8RTSLaKBK8HgV3SjJyWIOyWWVaMLbvHEGq DUfqDnP4KLWsRTPxRH4WVcZqXNTxQXO8DBKfXHBdYZGwok2LGGVtFBQ1Qhn5ZFLcKZWyOUEoCSjuCMQh HIg4JHv3TCPyKGJsZK6SAoDmDUOlVTY8NDcnLDYxOV Rpii2ALIIcGQS7SmV8IEKuRZPoYODzFVngOWZjQGn9MlO0QGXoHGIcJL2BVsQgMVtaAYOUXwf6UZxoJ6 g4MYC9RW4KR7Kea1NrLeMwMGLTFHxxYS1bnnQaLIMvXt1XS9kLUsseLAW1MsWdOFrtClR9GftzRgIbD2 HuFpEjKOOnJpD4Ns1jPXOpJjH6TJW8TdRmSZScZLYo LUG1FZDgRSChBCEwTpysVtTdZL5SNv9UMpV1TXP4uGPtFt6VTAM3HXVJCaHuHC8NRIb= ID Date Data Source [id number] 08/26/2020 04:11:50 PM EDT [facility] Name Value Range Interpretation Code Description Data [place] e(s) Supporting Document(s) History and Physical [facility] LBSGZp4uAqYVSdBe57/WNXtiNMHpx8BtXManSFs2WYfjNQKpE0GjOGF8kP3qPFB8IKeVUoUoPaNyZtVg lbm [file] AgICAgICAgICAgICAgICAgICAgICAgICAgICAgICAg ICAgICAgICAgICAgICAgICAgICAgICANCiAgICAgICAgICAgICAgICAgICAgICAgICAgICAgICAgICAg ICAgICAgICAgICAgICAgICAgICAgICAgICAgICAgICAgICAgICAgICAgICAgICAgICAgICAgICAgICAg ICAgICANCiAgICAgICAgICAgICAgICAgICAgICAgIC AgICAgICAgICAgICAgICAgICAgICAgICAgICAgICAgICAgICAgICAgICAgICAgICAgICAgICAgICAgIC AgICAgICAgICAgICAgICANCiAgICAgICAgICAgICAgICAgICAgICAgICAgICAgICAgICAgICAgICAgIC AgICAgICAgICAgICAgICAgICAgICAgICAgICAgICAg ICAgICAgICAgICAgICAgICAgICAgICAgICANCiAgICAgICAgICAgICAgICAgICAgICAgICAgICAgICAg ICAgICAgICAgICAgICAgICAgICAgICAgICAgICAgICAgICAgICAgICAgICAgICAgICAgICAgICAgICAg ICAgICAgICANCiAgICAgICAgICAgICAgICAgICAgIC AgICAgICAgICAgICAgICAgICAgICAgICAgICAgICAgICAgICAgICAgICAgICAgICAgICAgICAgICAgIC AgICAgICAgICAgICAgICAgICANCiAgICAgICAgICAgICAgICAgICAgICAgICAgICAgICAgICAgICAgIC AgICAgICAgICAgICAgICAgICAgICAgICAgICAgICAg ICAgICAgICAgICAgICAgICAgICAgICAgICAgICANCiAgICAgICAgICAgICAgICAgICAgICAgICAgICAg ICAgICAgICAgICAgICAgICAgICAgICAgICAgICAgICAgICAgICAgICAgICAgICAgICAgICAgICAgICAg ICAgICAgICAgICANCiAgICAgICAgICAgICAgICAgIC AgICAgICAgICAgICAgICAgICAgICAgICAgICAgICAgICAgICAgICAgICAgICAgICAgICAgICAgICAgIC AgICAgICAgICAgICAgICAgICAgICANCiAgICAgICAgICAgICAgICAgICAgICAgICAgICAgICAgICAgIC AgICAgICAgICAgICAgICAgICAgICAgICAgICAgICAg ICAgICAgICAgICAgICAgICAgICAgICAgICAgICAgICANCjw/vSFyQ7vbpWTvmxG1M7fuAl7FNt7QWL1o o3DmMLOlKQmveuNxNdlJYwFhAZYsFneFVtg3FKmjRQ0NhUEzK1CgY9HpILrrQK8SPSRqIWFrcHReMYKr WAQlGhK4QPQnFQteEG4CsDEnNXceVTVmZJEyUcUdRB KkLVOgHALmJIDoXHVQYFGgPEAqVcVuMJLiAOZjRIabKWVMNP5VVnAeA6HfdU20XLsNGp8+DQplbmRvYm bYKrKfFGRxe9DvJTf4VV1QPWVeBzzyk8TtLDDeSEZMFTmwWM5EQXF1LJMqORVjQn5NUMWbI033rcTdUS 2RUw0OGfUrCE6mhq7UTXDoEVCnVisMLpj7CLuoFW2W iNLdYIvIQhKwJflkKLTjgPzbPGmlPQ4rCT8PECE7QHjrEV0nDURqTQLvFpT2AVQERO4TYXGeXZEncJEj HDOrNDMDOG5DZYfcOXU0MTQafkHgkNSnGTfkDP9YKJAundJiYVAxJYWLVDi+Al8NAA8fk5LqSGu0CvNy VB4vni7TKUxNKsMnZ1V7mTGrX4G0YPhsXw6ESTGdHC MnQGnnPERRFQhxGE2BPP3hjjF6NC4SgUIjTVUlACWidCEyUBv9Q62ifTHgIZkxZH8WYCP+Luz+Pg0KIC ErJDEqFVClRuUfANKOGaNsC5DwS1ETk8XtA0TjXE17pKbqvaVlMCmzEF7QHB1qBTUhIBCUVV9GcVTwzS 1ypiQ5QFJsJCUNWeNeR47tzKQpRSScWRXjOWScVy0L JRRhY1OaniAxfJeiaiWuBMDsKSXNRQ0UJIhxumYdoUPmnXusOX47iVsxDD0WPx2RFwZxYT3rdc9OoCMn Fu5CRIF9JC9OXIWzAHHxMGEaUGN5AKYrPgCuUKuwZGUtHGXpZTE8BSHmEDWyXI5CUlYeORNgYFP3UBwy CKAzXEIzbt4DUNHpIGL6HiLrGVBhJEYoUUIeHWcbQV YrZWPdLAZ3VBDwIYFcXM3BUhSjVFUmRDZ4BDDmNWPfTEPzno8PYFPzGIMsNIH9ZQDeONQiAMGuHYbmKC FdBDV4RYk2ADRmXUNdSQ3OQpBdWFAjIDq3HXGyDDMjVNXjjn8YWBBoYYXoUFbxCJNrKUCkJEXeTErwNW SbLFGfOTO3BAYcEVQmLI6FXtRiSIBpDQAhMSnnZGCb OUTztv8WQESrKBTrDOX5KHKfQZSbYBDzGHlwFYJqVUZ5OQF7QGMeASCrOE0ZWiCmQKFcUQffVLBaAUMj PQYpsn7ERGBaDWTlUaUiYtKhBGNyDNQnMXnoSAFoJYVkBuEbZQTsLBHzSW2HHxOdPXKuDbX9UgIvNSDe PDSkee3TVLUxXKHcRjA3CfOvTBZmVRQiZXiuMQDyDD X0SOH5ZQAiOJMiEG6YRlBaIFLtGhdhZnNfDYMfMKWrem7DNCSmNWZrPOCoGvAkWFKbFCChWHkgLBItVC E5WGI1IYIgKKMoXN1VAjRnTTFwPjm9ZzylTYHiRSKyya0JKMMgLCPoCPd2ZWTzKXRjEXGsSLfyLOYmZM SxYZR2GVMmSASpHW3ULhXaUGIoHnFiHZUmVHYhYDXt gt6CJRZfLFKrKDBiLBSrOXXuOLDrKPisPONuGVYwEWF2HTUbLLMuZJ4OTgGrAWWdYaKrTuIsXHWgAAYz bj3MDKHyABJjMlU0YUTxAHJzDXGyRJquNBOkFVOmHZE4XVYkTXFoIA0UDrJaDNCdIqG7BFbiHJApODHq mr8HNETmWIKfSle4YOXlJOPlXZJdVNkfROIqGXY3Ny pcQGSrRELgGK6AKlDyHWEjRUE3OZOfALMbVIUthc0XYWGcMPC9XUnoDXMtPDCeUUKyUMtbDSNjJUY3HY T8PYNhYFBfFI1SJcHaNQDqFYPaQOFpBUNeBFFusr3AAXBxHPG8HkYwZQIyOAXaDAYtVHeaFTIeUPI1Xe PjTREvMSTmTZ0QGxVtPTReWMn3TJCeCPDnKCUoki6Q ASKzJQB6RyQ3VUUtFFFjZGGlVMjeFDXnYRUvVnc6ASUtUNSaYO6JRjMeUYThBYG1UIJgJDKtFTQpcj5T XNXjQGT3VyL4TXOoJCWrFGNqASmmLOIbXNIqYlo0OEGbHASvJV4RBpJvETFaBJJrJzCjXFHjQXTjlv6B WAPkSLO6PVDxHLJrBOSpRIKkUNzaQFFtWGS0PNy3FK BoOYGeZS9FVgXhQEKyNVPbIYNvWLRoXSXsyz0SWZOlUNU0AzF9AiZiQMTaWRMiJUbbETLzCGA3LvVdBG TkGUQmOB5SNoOsVBOdCSU7JtkuBSQmMQCoxu4GqVVrcPylno0CALeAKv8AgWelCCE7WVezOc9swKR2Hd DmAZXCEm2AcjYxYSAxTCBVNIuoETYiACX3DUAoCyTf AVvgJrBnMqUzLYBuGWLzE2K7Lbf0ATIeEwQ8HlWqOHZ7BGUnBwOoXMOcOSX0TKP4QbY3TNbhMYBvKDB+ KX3bXQw+Yf1Ph3HxisR6csJtFFa5NaDtJD1IROQVR1UVJa== ID Date Data Source [id number] 08/26/2020 02:49:08 PM EDT [facility] Name Value Range Interpretation Code Description Data [place] rce(s) Supporting Document(s) History and Physical [facility] GJYQYr6dGxYPYwHx57/QLBiaVNLen8BlVCofLAu2VQrkCQLiP9JeKDY0sI9fMTN8LOpAEnTqOwEzToRw lbm [file] hjdTEhqJxbWAEIDfAoJaG8OXcqYPLPHh3H ID Date Data Source [id number] 08/25/2020 03:29:00 PM EDT [facility] Name Value Range Interpretation Code Description Data [place] rce(s) Supporting Document(s) SARS coronavirus 2 RNA [Presence] in Res piratory specimen by MARK with probe detection NEGATIVE [facility] This lab was ordered by [facility] a nd reported by [facility]. ID Date Data Source [id number] 08/17/2020 03:58:41 PM EDT [facility] Name Value Range Interpretation Code Description Data [place] rce(s) Supporting Document(s) Discharge Summary [facility] INMLQs6wExZUFsGt33/WZSgcYMTag6BkWMafQLx5SKtfPJApH3LrMEZ7bR4mFFN4LBzKTmDoBnRrRvKm lbm [file] ICAgICAgICAgICAgICAgICAgICAgICAgICAgICAgIC CmHUGxFUQiMIKlQDTuRZCwRYAvOBXuCKNiMPMiUYBrJNTgXRRlZV5ILZJoDWYpTDCcATZhQQFuQGCvRO AgICAgICAgICAgICAgICAgICAgICAgICAgICAgICAgICAgICAgICAgICAgICAgICAgICAgICAgICAgIC OpFURvFOLgMXVoGXRxTKBjBVGwTV4JIXDpYAMnPHKi ICAgICAgICAgICAgICAgICAgICAgICAgICAgICAgICAgICAgICAgICAgICAgICAgICAgICAgICAgICAg AMWqQVYzCPArJDDlXECgRJUcQOIvGAJaYPDnAFQhXP0ALYJjFCOtMVArZJVhFAOxQMEhEOXdPUCkGNGl ICAgICAgICAgICAgICAgICAgICAgICAgICAgICAgIC NoHKLmUWReIRUcJXZvQKFaBTYrBNBqRQYpLSXwSJZeLDVqRQTiVYVaWP4RZWUhVJWuSLPtRZIuGCAgJN AgICAgICAgICAgICAgICAgICAgICAgICAgICAgICAgICAgICAgICAgICAgICAgICAgICAgICAgICAgIC BcDXTyJRAbVSMfDRCiLWZcTJOdEDXvMR6CSAErJCJr ICAgICAgICAgICAgICAgICAgICAgICAgICAgICAgICAgICAgICAgICAgICAgICAgICAgICAgICAgICAg AXLxYWCtCNEtJNZbCKNjNJIsLSMrYRBwMLMgVMRuUADgDT9APBLgGYLwKSMfAVNfYYHyDTVgNDLjCUGu ICAgICAgICAgICAgICAgICAgICAgICAgICAgICAgIC MyDUJpVMMbAUEnIUNsNBNkIMBnBFIgEGQhVFPpXEPlYXStUDZrEDLiIPQiOE9ETCXaGPHoNZCwFOEyAO AgICAgICAgICAgICAgICAgICAgICAgICAgICAgICAgICAgICAgICAgICAgICAgICAgICAgICAgICAgIC UzVGKtGGTlOEEmGZJwARZaBSTmKIDzGMLzAN1ZISAx ICAgICAgICAgICAgICAgICAgICAgICAgICAgICAgICAgICAgICAgICAgICAgICAgICAgICAgICAgICAg BBXgEEFnMQBcOBKfXCGrNIZkZLIvQRInMASsMZIoUSPqRZGyVQ2XFKXnNLWaWXVcEDAcVEMnAKXgXNGp ICAgICAgICAgICAgICAgICAgICAgICAgICAgICAgIC ZuLGTrKONjVIVvRZHhZSKnJRLdGZNvWVAzNARhIQLbHWAhIFYqJMOqRRQbXVEwYS2KRJ62qEZnv2O8LR UyGQ1izmc/Fl9NBVxnegQwbCPqZC4PSvDzPM3hty1JWeEjRL3wme8JHHgKMqLzG7N0wBPeQAFkAVJLNy JpC31aRGnzUq14KWihCSNsJiWzNFk4Kw6FHpCkK3lu DHFyCqW4KRYiOjY7AFTfWoW6UCWmTdTuXZKtLBQjYPLqIFRTXGS0IPKcTjBzOdOxDKTpHZqlWONAXFHt FZLhMbVeAbJuQCNzMC2IOZBfV107haLvORUIVu1+XMleofPgVvePNjE3DHWsd9NtRWm6RT7ECQCbXnpv r3FkFTziJBNTXPsuWE4HGKE8TJO2QCXuFk7JFPDoF3 53vsJzDE9VXl3BTiLiBI7pzi8FDGsuJGIzZtyRPxq4CVuaTW9ZzGTmMKiYfCFteCHuQ1MwG4DpuKCllX ZeuWYKvTAaEGXvVKPpgiZgKlHddRoxfHgqKYXpCGClBj5pXp0nCLAxZXRwHfPuJZJFQQ9BVBSsZAGpkR KmAMAvESGEXJ4MYRqoEQK8MWAxtgXiiPMrPUsdJO0T YXJlbnQgNTcgMCBSDQo+Zx4QAQ4cd6DkGZi1MYXkOL2ycn9NHMaDFhArJ6M3gMVtE3F5ZRvjOl4IVCFs KGHhJEMkKKKQOXtgPR5PDU0eyjW7XK0DeZUlZDDpBZLbjSPlBBk6C49xeAYfBJzrNY4BQOM+Luz+Pg0K FINiCYKkSJSeXdUaPGUCWuVdN4EjF3WNr8PwK2XxFD 72jPmzumBnHBgaPN6JWK3kVLYjUNSJTG3EjMArdZ4swcY8NcPyLMZBUfZaW47gpFYoVOUpUAD1AFJcOn 9GHRFsT1ZwrdGzhNehxnRlZVHyTZRWFO0WNGodauEbgMRzkZhfSI93vOjiFB1LXl2MLbTwPT2fsf0DsP IsTp9ZHLQ8VA8KJEOfBUNnXFSaFYT1XYNzQuHwELjk WPDrLASdFAZ9SVPiFNStLW1SVmWeIEKfYkF6XoQmAGMoZUAzrk8ZOBVwYAI0PCX5MHFgYPDsRANyHJli TYRkFLEvDIV3UFArCIBcCA5AHiLaWNVjNVTxTEiqHZGsRUNykh1BTHXuBPHnAHC0BQRiWADxJKDvXUxa UHQiRAZ3GoKxQQOtRCLkII1VFjLfFSEmJMv5VHRmIY XdEYJfjy4RPWAyHMBgWoUiTOXzFOBmSKYfBLyyZHGxLGGhWbH2XNSqDXSvJM0TLzJcXWOvVAH6JWucLX MtCUAwyb8WYUYhELFxLgr3TOVoXEUsTLBhQBdePSSvCVHmVVWuFFZiHGJrRE9NIbLgTAKzQyWrBCpiBK GsIFNchu1GGNAkSPSuBYQ7NOBhKSBbXJIcTVytGIJi PNC6Krg0QQStDTVhMI8YGgRoJNKyNtp0YbHuUQCfXXTgqs6AQLKvTDPxJBZhWzLzHBRrKTBrIHpkLSOk PZIlIBCsDYYkTQZyWX0FKyTzWIByZzXuOvogRYOaQTCizv6RLDMbBVGmKVB5VFUeGKRpEZNnQXvcXPTw APY4MnLvMOHuTOWdGV8UTrGjYMUcJrU3NIKaXRPqGH Nuyy8VOGDhLWWvBcauGbLcORNuGERlDHcgYFGbKEN8Sio7JMNmKRAoIQ2JRlQsMGGyLem3RbAxCSSdYY Wpjp7FZVGkIGNjVXS9NkYoRVLjHSBhWWxzEURlKRG2UGJ0NFBdIUPuTM8ZBmTbZQIoJkioMLjqXSRwCE Lufu6VMZXxAWXrTFSvQHJfAMRvYTCuUJcnOINqLGIg GXZ3CUBaVZFtPZ4BHiTgVKJoGUM6FlKtYMBqQMNmgp1FPDQjGMR0JOb2OVAmKNYjMUPcPYitTMTpDDNz CET4TZKfHSVdQH5XAdEpPZRnAOTzNVLeBKBcWQDige7ACCIxNWX3QpZ2TMLfJKQlEPRyKIuwVXGiFLNk KIZ5RWUnGWHmZW4JHlDkHRIoYTStRUjfRWAxZFAdkm 1DRMQiOBK2PcG4FWRnZSZhVGEnOHdnMRNxXPT2GXOgOULnZPIdBS8ZAaXoWROoHAFhUCTcDOLaRBEpio 6KUSPqYLY9HTJ9UXPsXXCoNOMdGMskAEWmOEU2Xlp6NJTbNKPbUB7BZkDhPDKwDFE9SQSpDYGnKWBkwt 7VVAPcFCV6ZYidYWFwYSDoPJSmMCrsXSXdOFKnSJR4 NWVbYXYvWI7PLvGuUUMvKnSgHrEpDEDgIMWkge6XPYLeAVW2NXQ6AYJgFHSpCPAaPVbsYKQbMWQtNqP8 BXYxUMGcWZ2TGpGxUGVuKrV2KwDpBYMkOYLfgm0QNMMoNPB7New0RYVmREAfONMtGYhwDRXrBOUbQTY7 EXXuBKGlJR3JRmDvHXNsBiQqFGAaBWWbLAGlin9JUV AbWQR8XsU5KQAnBRLdMIBiYHxrFKEuCFRpVUJgXXVtCVAbFF2DFiZvOPYzIwIuZDmxHVVdFKHzvn8UJL KbGCC9FSJ8AIXdTDKeYTDkSLaoDJRtNFU3RoY1OHOsTPKlVK4AHxBlYAJyAiU7DqofAWLgJWIllq4EwY WqxTdzdl8CFBlUVi0SlJxyIJWcGJjuVd9jtHJ2JXIu RXSILi7FbwNhZHWdLEBBMDvtCOOnONInNLOyRQx0RGCqF2CpY3D0SiQsYIMuZAX8YUsjKSnrCvT1T6Uz PEEcQhY7NgX3CZW9IdZbTGHjDYT0XIo5WQA7R2M+LD4sSRd+Ob1Tf2PuyrY2onLoLNu6XnDzXE5PLTWF T0YNCg== ID Date Data Source [id number] 08/15/2020 07:55:53 PM EDT [facility] Name Value Range Interpretation Code Description Data [place] rce(s) Supporting Document(s) Color of Urine [facility] Clarity of Urine [facility] Specific gravity of Urine by Refractometry automated 1.010 1.003 -1.030 [facility] pH of Urine by Automated test strip 7.0 5.0-8.0 [facility] Protein [Mass/volume] in Urine by Automated test strip Neg [facility] Glucose [Mass/volume] in Urine by Automated test strip Neg [facility] Ketones [Mass/volume] in Urine by Automated test strip Neg [facility] Bilirubin.total [Presence] in Urine by Automated test strip Negative [facility] Hemoglobin [Presence] in Urine by Automated test strip Neg [facility] Leukocyte esterase [Presence] in Urine by Automated test strip Negative A [facility] Nitrite [Presence] in Urine by Automated test strip Negati ve [facility] Leukocytes [#/area] in Urine sediment by Automated count 0 -5 [facility] Erythrocytes [#/area] in Urine sediment by Automated count 0-3 [facility] ID Date Data Source [id number] 08/08/2020 03:50:12 PM EDT [facility] Name Value Range Interpretation Code Description Data [place] rce(s) Supporting Document(s) History and Physical [facility] JGFRWu0uWuNKLrVk04/FTAnpYWZmm1ZyOLgrPZg1BQcxRBAkF9TzCCU8jM0cSPD4DVrXDaLnShKlRhNw [facility] [file] AgICAgICAgICAgICAgICAgICAgICAgICAgICAgICAgICAgICAgICAgICAgICAgICAgICAgICAgICAgIC AgICAgICANCiAgICAgICAgICAgICAgICAgICAgICAg ICAgICAgICAgICAgICAgICAgICAgICAgICAgICAgICAgICAgICAgICAgICAgICAgICAgICAgICAgICAg ICAgICAgICAgICAgICAgICANCiAgICAgICAgICAgICAgICAgICAgICAgICAgICAgICAgICAgICAgICAg ICAgICAgICAgICAgICAgICAgICAgICAgICAgICAgIC AgICAgICAgICAgICAgICAgICAgICAgICAgICANCiAgICAgICAgICAgICAgICAgICAgICAgICAgICAgIC AgICAgICAgICAgICAgICAgICAgICAgICAgICAgICAgICAgICAgICAgICAgICAgICAgICAgICAgICAgIC AgICAgICAgICANCiAgICAgICAgICAgICAgICAgICAg ICAgICAgICAgICAgICAgICAgICAgICAgICAgICAgICAgICAgICAgICAgICAgICAgICAgICAgICAgICAg ICAgICAgICAgICAgICAgICAgICANCiAgICAgICAgICAgICAgICAgICAgICAgICAgICAgICAgICAgICAg ICAgICAgICAgICAgICAgICAgICAgICAgICAgICAgIC AgICAgICAgICAgICAgICAgICAgICAgICAgICAgICANCiAgICAgICAgICAgICAgICAgICAgICAgICAgIC AgICAgICAgICAgICAgICAgICAgICAgICAgICAgICAgICAgICAgICAgICAgICAgICAgICAgICAgICAgIC AgICAgICAgICAgICANCiAgICAgICAgICAgICAgICAg ICAgICAgICAgICAgICAgICAgICAgICAgICAgICAgICAgICAgICAgICAgICAgICAgICAgICAgICAgICAg ICAgICAgICAgICAgICAgICAgICAgICANCiAgICAgICAgICAgICAgICAgICAgICAgICAgICAgICAgICAg ICAgICAgICAgICAgICAgICAgICAgICAgICAgICAgIC AgICAgICAgICAgICAgICAgICAgICAgICAgICAgICAgICANCiAgICAgICAgICAgICAgICAgICAgICAgIC AgICAgICAgICAgICAgICAgICAgICAgICAgICAgICAgICAgICAgICAgICAgICAgICAgICAgICAgICAgIC AgICAgICAgICAgICAgICANCjw/nSNnJ6ndeNXxssJ0 K1faQh9IDo0RLU7dn0NsSXTsAGyclbTsTdbKMdBaLYSvHjoXVgk3MOojHM1OwWNdZ5XfO9IySObuKN5P EUYxRKTemYWjJDJrNXFwNwW8IZQjNJweZN8TrKEhADusXLEuQNOtPgQjVCJgWULkFYHsUNFaLJVSFL6N HoCcR0PdbM28AZVEWh6+PPkbdzKbZxpIGdN3QAAhw7 NrBJb6JJ6WTQGoVtyil3HxMtBrMMSCNHomNA5BAJI6BQV2BYHcJz5MVHTkR579dwYuCG5KVv8OMlPrBX 1unw2NTcHrXAFxRwuEDhk4TZkrZM5IqUOiRBlGIuRoWcxsVWSepGZIDTPbGCSsyPrsJBUjMYSrQj9nGk 6oXQEtSFBdOrD0CSACZM6BSZRkDVXbzEZbBTNmKYLO OP7EQUwbSQI5IQOnakHipICcQXubCV5VNRUppsGiHkMpNEXNCQl+Wx2KRB0kb5FgHOyeQpTgYZ4ona0Z WUfEOlSpO5H0jHLpC9Q6UTjtPq6WSJSuLDJmLvPsEWKJIFnlFM3OAF8lqqF9PK3OgFZwHYFxLCSnmTAy ZKk0F48yaTKpBCysFD6OBTY+Luz+Ue2OQXLmMGFuKK FqTtCnRZNUVyZhR1LpY8QFf7AoE5WxYL45qTjttfWqFDdmKK4DRP1zQBGfXWDKVP8PeBTjlX1ezrPxTE KqNJRGHbYjK60clVKqGYLfYSCdELFcGo2IEYHpL8EioqJeeNycnkTaPDXaSQLJLY5TJNwxhgDzhPXquS iqPK74sKckRN8ODs4QFcLjAG7gyz6MkJAaXr8MPJZe Cv9MTJXuUZBvULWqYQJ5BYCtNjWyPKckTEQgPNDdHGW1OWTsKGYtSA0GPnHoSOKrDlD4UDCdYPRrTFTw fp6GPLBdXGQvWhM3CVAzBTAzHANhYHkdUCKjOPPcJPN7KXMzILDlIS0BPuZqANGrUEJwBvHdQSUeQAXi uu0PGFHzNVVfHpP3RjOwSAZaLGDlUCevNUBrYCK0ST T7YHHnCULmWJ7OOcUtAQUuBVYwKoEzMSAqBZPojw2EZKWiBUCgEUZ5EWAiWKPoKCUsDLnpZSVmZGR6Pw ygRPLeHRZjWI9TBeMkHUIeNUB8TUduEHHqGUBgoa5OZCSaVKYuSIhyCNYgUENtSZXvGMyyQXVsPKJhXn W0RZXpVFCqZR1RUwLwWDQeSNC8BnZkAYDvHPIsyl3F IMYcFGBzPlQ8DYXzHWXqNBWmEEcxWSOtQFR5YRQ3QPQvDFQuGP0CVyLiVYGvTLOnKNZwTDYsOZNmqc1G IARhZCVqYQY2UWLyXYMeJGRnMOtrHNQsPEA2WfE0WRBbHDObLU8TLtGbQRQuYXB0FQMvTSNaJYVbok9K LKWhOGFaSPpxNJKrDDTeLQFmXXnePWByVKJ7KTZ3DQ DyKGHqWA6XMxTpXSCxRnq4IzknIDVoLZYgfd5SIFDqQHIlOuQ7SiWvWTWeQSSeXGhwRIYuBPR5TWn5GP KlBJSaVC1TXdTiALXwUfqwScHzNAGhBJItwy6XJFXdGFYpZDw5KBUfSDPyZOWpPMuaZZEzFND7XBYfSE XkPQAnBR9ISfPfVNZeLawfJMPiLPIpNGRmgf0CNPNx PROjLME2GJBuIEYhMZSeEDahTQTmSYEhXKp0BATyQQFuWO5HZqSsBAJsRpR3VmMtNZRgQOFyke7LOEVn BJRcRZLcOXZqSTReAJVcCHmbOSEeXTVnCDI0MOMeFBWbNV2CXxWfULNbNhB9ClzpOJVbWDMuzv3GYFGp HRDnIni6YGOiUCOcAJZvFGz3rmHwuVXkOEe0GJ6AV3 VvdtSvQopEJz8Mx433TTA2QACsSn2PI1dsIv4iKWJuRJJNKd8DUQm8SSP6S4WwWTR5I7UtFdL6LBEzYE HpHZq7YXekCNCySrr+YVenYiq3SDWhCQz4GYSoOQg7JYP4IZBaYmJnRQH5UqPnIF5yFJJMSp8+DQpzdG WsvHvyHFGQXkNcTFT1OMeyTNTQFc8I ID Date Data Source [id number] 08/07/2020 04:12:43 PM EDT [facility] Name Value Range Interpretation Code Description Data [place] [facility]) Supporting Document(s) History and Physical [facility] VNTDIe0hLfBNUhAa07/RCVcnCXKcw8YyKMduUKx7VXrgXATcS4SnPNT2kP6gBCR0BRlGUaZxMjDaWxNd lbm [file] ICAgICAgICAgICAgICAgICAgICAgICAgICAgICAgICAgICAgICAgICAgICAgICAgICAgICAgICAgICAg EKQoPZAcVKZpYONdEWIpWB4MZRYdJTXlUFXxHZAaVXSrBPSsGPJhAQGfSTTqSKWyPJMcDTOyKAShFODc ICAgICAgICAgICAgICAgICAgICAgICAgICAgICAgIC FnKXQwISFlCIAuSGNqMYFkTSNcJDNlFLJeHB3XHGHxUNUyLBMvVSQhLVGbNVTaSCUtEFTjCCYxMPZdKG AgICAgICAgICAgICAgICAgICAgICAgICAgICAgICAgICAgICAgICAgICAgICAgICAgICAgICAgICAgIC SoZHCsIZClOM5PMMLiEWQgQLOhBXUfATWpLCHyGUYt ICAgICAgICAgICAgICAgICAgICAgICAgICAgICAgICAgICAgICAgICAgICAgICAgICAgICAgICAgICAg HLTwCSNiOMSqHSPaBACiSCDqMM0FJJNyXEFdCAMvFBWmYRCaSCDjOZRdWXLmMZAxMXEpGCVyEWOzEKJp ICAgICAgICAgICAgICAgICAgICAgICAgICAgICAgIC QtGJZrNQUjTWBzMCFfWCEyJYUrLPUcPASdLCEqZY6RNNXaTTWwLUJwNYFvXHOqMTPyNAUhZMGqNNAhTO AgICAgICAgICAgICAgICAgICAgICAgICAgICAgICAgICAgICAgICAgICAgICAgICAgICAgICAgICAgIC EhEMTjBSVuVFOzIL2ZMDIiIRZzSTVrLFJeQEExTVOx ICAgICAgICAgICAgICAgICAgICAgICAgICAgICAgICAgICAgICAgICAgICAgICAgICAgICAgICAgICAg NOEiPYUaNIXuBOZbNRFeNDBtYFZuQA9GVVFyXSBaGGMzASLtIPKuGEVyMBTyPGSmNCAuYOFpLRCgVQAk ICAgICAgICAgICAgICAgICAgICAgICAgICAgICAgIC QoPVRlJPRrJEFgQRJaUZLhNAQtKEQuPCSqEPFaPARdNZ8EGDBvOBTlKIKnKVXtQBBpCFLlOERqTOLmDJ AgICAgICAgICAgICAgICAgICAgICAgICAgICAgICAgICAgICAgICAgICAgICAgICAgICAgICAgICAgIC AxZHEjDUTjPVUdGHEqAF1XLEWgPYJyKOBaFJBmWIWk ICAgICAgICAgICAgICAgICAgICAgICAgICAgICAgICAgICAgICAgICAgICAgICAgICAgICAgICAgICAg SUJmLJXkXBEaMRFcEAVxRIIpFNBdUKNdIW2UTL36rHBjk8U5GCGzMT1jjwc/Wu4KNXihkoSkmBSoKS3A DxQnZN4seo6TYfFaSK5ijr4HVGwMXrZsM7I9nLJuUO PvOFQCJlLjA27yINveDe33UAerISUbLbIyOKa5Yj5IChWcA4zjTPPmWaZ0SWZcKrT8LTQhGdF5QVJzOc TvOCYsUZYrOQHgPLQLYLG9TRGrJqLhHkSuPVCvTH3KNVXhH766qsYjFb3DIn9GEwGfRT2dfq6XQCGrLE BrSuzCPhd8IRgqGH7RmAQdnOF4OQToATHNEnPvX5jc t8EcYDTmANRKJWscGS7Zp1NdxNHzUDb+Xf6RUM8iz9LdKZk2UCQiUP6hik8FXPrNBbXeE1XjnFgbEKuq NFVvkEHBiKNwgXDryXZhLRHQiNmzPKEnCV2LFMF1ETUcKSOrVbRsZEQiCYv0RpFADHdGKzWjV4Ndr0Hp VpS2HGWaLtHoZBjeRSWnItC1GU99lJxzLO7NKXVeSK ScYF55ZUQiCOHqWq4BRv2ZYlAmNI6hzm9CANAcBTMfLbvOZce7JViuWF3UsDRkU1RanVBux1tLDxQmM5 TQUXXkHEPjDj9DTOCfVaKzVKJsAWbaVG0uWYFqJMRZaHycmzR8PW2VVK6yuaDbNM8XVdIsMl4bGs6GGd WlY1NdW0CaSRIgMZFVNWwyRI8IONqmXM6zDM9Dt1HL mIMeuF3yfw4DMTXpPBQyOhcyki5LVnaiX3R2uTgfTRZpMNPkHNAGQDhcBZ9OKMUaXBS9XMD7FrQsGTZX TvDgX41cTU4RH1Axx36jXqL3WLEbGgPjHGclPJ16sRtnobDwjSOwpUffOP3DGs2+DQplbmRvYmoNCnhy BKZOFoNlDRKUHhHqHWRcMHOtWLPyXaW1MkVpXe6WBY ZlZCBvQDOhWoNsPAHjZBDrWNjhJVGcDOP3JXH6TWJjGUCmHE2DFxDwVUInVkf0HLUtCPEsFZGgjm8VWU CsSEGcNUI3KyKdJTTuAABwXHagNIGhURBnDIG0DAUjWJUvDW9UUySaZMWmGTFtSDXzIJYfDCQoyj5XRD ZyAKMrWjOoUmZyNAJhSPOeZIofPUGfNEG4JMQ2MZGn FYEtLB4LGxOdAQUrFVY9KuOjFFFxXTXsht7IAGKlSYIoGWUrIaPgHYCtRMKlFQopFZPbXQA9CIi0DIFm NASmFF0GTyKfYAGxVGOlOQPzVFPpVYVcan9ZLIWeZLAeGTa0NCQeYKJcHQMrDUkeSBGmQGY5IET1WGPo ZNZdVQ1EBhYoRUOoAiQ2ZpByXCQrEPXofq5LRRCmDM JnHhHqBhEpHNWyNEToWWruBNIbALPuFNTeUIDfZHZqMM3YFoXvCCHhRaO7SvroAMUwFEJjqj2WMPEkUI GfZHRlHKCwGQBvLYZwLFadZKFmYYH7QFW0ZVCnWCSdSP7AXqKlGMSvPtMuWDpeBZPnHYRemk1JCWIaUP BwXKb5GsSyZUMwDECyJEhdHFFxMYF4PGM1KBVwLIQm HG8QJwGsDMObLvFvRIuaVLInIQUcga0YFWFoTZHgZyGaIlDlXBSlNIMbWJamDFGhEXP9OEE3DAVjNHKe GH5CGaNyHMYiZvm4RBysSBRcIBXggk8XSZKeFUNiPFQ0WmPoIRZiKKUyJFfrXYJtTHI1DOVrKTJtLSLj VZ6VCsOoHYVrMbifJFMnWQFtWGMqha3IBJXrCJXfJT CzREJbLLOxXZToPJxzVNDwNRQdPjB7UNKeXEOwIT5ZZjKgRXXrChM1VPIzYBZiPEFmxk4SAHSqWDMhVY D8TFUkBIMlQYYwTXfvROOiGZI8JVobGLEsFBKyXI1OHmFlJXQaEiC5ZVkeFMCaZYTcru8WUFZfZZOjQh C1FLViHOYhWYAjREcaEQQtSJU1TcK7PIYaMOCsIG9P VfMqZWNoTkS6WEuxHDXaLZCmzs4PCWVoOYCiAsX7YGMcYQTbQHQpJNopKHDkBIU8TXO3KVEvSGNcHB4F NnWiLTMwZcxpRqEkAABoOKZszl2JMLReYKYiJQk4WYPwBCHpRDKlORyyGSNcOBY7KIP1RDDuZPXnTG6J FzYzEOQlQbr2EiLgVPDmSRIunv7FkCMsuJmihz1WIU nKLo5PhUrvWPU9BIztRy1uvRM9OGBqTUKGEr9OpyJuMAVgZCOYXBuiEFGaRMO0NOp6MwJhUFQ9NMbaBM GkRxN0ThIvEvXpCLH0JMtkOfO9PscaQoTjKDNrYNS4YBCgKSWdHsQmBuTpILQnUGxoYUG+ZG4vHOi+Pg 7Cj1AciuG2ocNmROunVSOeSC8POUMVX1NFBi== ID Date Data Source [id number] 08/06/2020 12:10:00 PM EDT [facility] Name Value Range Interpretation Code Description Data [place] rce(s) Supporting Document(s) SARS coronavirus 2 RNA [Presence] in Res piratory specimen by MARK with probe detection NEGATIVE [facility] This lab was ordered by [facility] a nd reported by [facility]. ID Date Data Source [id number] 07/28/2020 01:05:00 PM EDT [facility] Name Value Range Interpretation Code Description Data [place] rce(s) Supporting Document(s) SARS coronavirus 2 RNA [Presence] in Res piratory specimen by MARK with probe detection NEGATIVE [facility] This lab was ordered by [facility] a nd reported by [facility]. ID Date Data Source [id number] 06/28/2020 07:41:00 PM EDT [facility] 1 OrderSheet [facility] Emergency Department [address] [place] [address] Phone #: [phone] 06/28/2020 19:40 Patient: BRUNA LEE Sex: F [...] rce(s) Supporting Document(s) ID Date Data Source [id number] 06/28/2020 07:41:00 PM EDT [facility] 1 Medication Reconciliation Report [facility] Emergency Department [address] [place] [address] Phone #: [phone] 06/28/2020 19:40 Patient: [...] Medication information:Not obtained. 2 Medication Reconciliation Report [facility] Emergency Department [address] [place] [address] Phone #: [phone] 06/28/2020 19:40 Patient: [...] rce(s) Supporting Document(s) ID Date Data Source [id number] 06/28/2020 07:41:00 PM EDT [facility] 1 Medication Administration Record [facility] Emergency Department [address] [place] [address] Phone #: ext- [phone] 06/28/2020 19:40 Patient: [...] rce(s) Supporting Document(s) ID Date Data Source [id number] 06/28/2020 07:41:00 PM EDT [facility] 1 General Instructions [facility] Emergency Department [address] [place] [address] Phone #: ext- [phone] 06/28/2020 19:40 Patient: [...] patient. ADDITIONAL INFORMATIONDrug Abuse 2 General Instructions [facility] Emergency Department [address] [place] [address] Phone #: ext- [phone] 06/28/2020 19:40 Patient: [...] job or your family Arrest, conviction, and senior living sentence for possession of an illegal substance [...] to continue abusing drugs. 3 General Instructions [facility] Emergency Department [address] [place] [address] Phone #: ext- [phone] 06/28/2020 19:40 -- Patient: BRUNA LEE Sex: F : 1985 Age: 35y Eat a balanced diet and start a regular exercise program.Follow-up careFollow up with your healthcare provider, or as advised. Contact one of the resources below for help: National [place] on Alcoholism and Drug Dependence, www.ncadd.org, Narcotics Anonymous, www.na.org, mydoodle.com Alcohol and Substance Abuse Information Center, www.Core Competence, . This center can refer you to a treatment program.Call [phone] if any of the following occur: Seizure [...] at an injection site 4 General Instructions [facility] Emergency Department [address] [place] [address] Phone #: ext- [phone] 06/28/2020 19:40 Patient: BRUNA LEE Sex: F : 1985 Age: 35y [phone] [employer]. [address] [place] [address]. All rights reserved. This information is not [...] yourself out of the 5 General Instructions [facility] Emergency Department [address] [place] [address] Phone #: ext- [phone] 06/28/2020 19:40 Patient: [...] You have trouble speaking Your vision changes [phone] [employer]. [address] [place] [address], [place] [address]. All rights reserved. This information is not intended as asubstitute for professional medical care. Always follow your healthcare professional's instructions. You have been given the following additional information: Drug Abuse Headache, Tension 6 General Instructions [facility] Emergency Department [address] [place] [address] Phone #: ext- [phone] 06/28/2020 19:40 ------- Patient: BRUNA LEE Sex: F : 1985 Age: 35y(Electronically signed by RASHID Godwin 06/29/2020 20:04) Name Value Range Interpretation Code Description Data Elmira rce(s) Supporting Document(s) ID Date Data Source [id number] 06/28/2020 07:41:00 PM EDT [facility] 1 Clinical Report - Nurses [facility] Emergency Department [address] [place] [address] Phone #: ajr- [phone] 06/28/2020 19:40 Patient: BRUNA LEE Sex: F [...] treated for.Pt states she was seen at [facility] and left AMA because she was not being seen. Pt is able to speak in fullclear sentences, in NAD at this time sating at 96% on RA. 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 [...] Chand R.N. 2 Clinical Report - Nurses [facility] Emergency Department [address] [place] [address] Phone #: ext- [phone] 06/28/2020 19:40 [id number] Sex: F : 1985 Age: 35yAmoxicillin. --19:49 [...] no deficiencies. 3 Clinical Report - Nurses [facility] Emergency Department [address] [place] [address] Phone #: ext- [phone] 06/28/2020 19:40 Patient: BRUNA LEE Sex: F [...] Mariana Trammell 4 Clinical Report - Nurses [facility] Emergency Department [address] [place] [address] Phone #: ext- [phone] 06/28/2020 19:40 Patient: [...] 100%. --20:46 06/28/20 Mariana Trammell.DISPOSITION / DISCHARGE Graham Coma Scale: 15- eyes open- spontaneous (4); best verbal response- oriented (5); best motor response- obeys commands (6). Departure time: 21:07 06/28/2020. Condition at departure: improved. No learning barriers present. Discharge instructions provided and reviewed with the patient. Reviewed referral to family practice for followup. Patient verbalized understanding. Written instructions not provided in [place] Citizen. The patient was discharged home. She left [...] rce(s) Supporting Document(s) ID Date Data Source [id number] 06/28/2020 07:41:00 PM EDT [facility] 1 Clinical Report - Physicians/Mid Levels [facility] Emergency Department [address] [place] [address] Phone #: ext- [phone] 06/28/2020 19:40 Patient: BRUNA LEE Sex: F [...] for. Pt states she was seen at [facility] and left AMA because she [...] abuse. 2 Clinical Report - Physicians/Mid Levels [facility] Emergency Department [address] [place] [address] Phone #: wjo- [phone] 06/28/2020 19:40 Patient: BRUNA LEE Sex: F [...] ROM. 3 Clinical Report - Physicians/Mid Levels [facility] Emergency Department [address] [place] [address] Phone #: ext- [phone] 06/28/2020 19:40 Patient: BRUNA LEE Sex: F [...] referral: 4 Clinical Report - Physicians/Mid Levels [facility] Emergency Department [address] [place] [address] Phone #: ext- [phone] 06/28/2020 19:40 Patient: BRUNA LEE Sex: F : 1985 Age: 35y e valuation and treatment. Summary of care provided to patient. Understanding of the discharge instructions verbalized by patient.(Electronically signed by RASHID Godwin 06/29/2020 20:04) Name Value Range Interpretation Code Description Data Elmira rce(s) Supporting Document(s) ID Date Data Source [id number] 06/17/2020 08:41:00 [place] [address] RESPIRATORY CARE REPORT ==== ---------NAME------- NUMBER SEX AGE ADMIT DISC. XRAY# F/C TYPECOME BRUNA [id number] F 34 06/16/20 06/16/20 [id number] X6B E/R DATE OF : 1985 M/R# [id number] PH#: [phone] TR-03 LOCATION: EMERGENCY DEPT EKG 70432 COMP LETE:06/17/20 02:50 VMT [id number] PHYSICIAN: HIEU CLIFFORD KARAN Name Value Range Interpretation Code Description Data Elmira rce(s) Supporting Document(s) ID Date Data Source [id number] 06/17/2020 10:02:00 [place] [address] PHONE: [phone] FAX: [phone] Name .................. : JESUS MOSLEY Acct Number.................. : [id number] ROOM. ................. : TR-03 Number ................... : [id number] Stay type ............. : E/R Discharge Date......... ... : 06/16/20 Admit Date ......... : 06/16/20 Admit Phys .................... : HIEU JENSEN Date of ....... : 1985 Family Phys ................... : NON STAFF Phone .................. : [phone] Age ................................ : 34 Film# .................. .:[id number] Sex ................................. : F Unsigned transcriptions are preliminary reports and do not represent a medical or legal document CHEST PORTABLE [id number] COMPLETE:06/16/20 19:31 KHAI [id number] Reason( s): Chest Pain PORTABLE CHEST X-RAY: INDICATION: Chest pain. FINDINGS: The cardiac and mediastinal silhouettes appear normal and the lungs are clear. The bones and soft tissues are normal. The upper abdomen is unremarkable. IMPRESSION: No acute disease identifiable. Electronically Reviewed and Signed By Dakota Fernández M.D. , 06/17/20 10:03, [facility] Transcribe Initials: DZ , Transcribe Date: 06/16/20 21:15, Dictation Date: Copy for: REJI Bundy via fax Copy for: EMERGENCY DEPT via mode Copy for: 710 MED REC DISCHARGED Page 1 of 1 Name Value Range Interpretation Code Description Data Elmira rce(s) Supporting Document(s) ID Date Data Source [id number] 06/16/2020 04:22:00 PM EDT [facility] 1 OrderSheet [facility] Emergency Department [address] [place] [address] Phone #: ext- [phone] 06/16/2020 16:20 Patient: [...] Description Priority Entered Acknowledged Initialed 2 OrderSheet [facility] Emergency Department [address] [place] [address] Phone #: ext- [phone] 06/16/2020 16:20 --------- Patient: BRUNA LEE Sex: [...] 06/16/2020 17:31 Ruthie Espinal; R.N.[Electronically signed by yJotsna Clifford (21:17 06/16/2020)][Electronically signed by Jovan Damon R.N. (03:08 06/17/2020)][Electronically locked by Jovan Damon R.N. (03:08 06/17/2020)] Name Value Range Interpretation Code Description Data Elmira rce(s) Supporting Document(s) ID Date Data Source [id number] 06/16/2020 04:22:00 PM EDT [facility] 1 Medication Reconciliation Report [facility] Emergency Department [address] [place] [address] Phone #: ext- [phone] 06/16/2020 16:20 [id number] Sex: F : 1985 Age: 34yWeight: 70.7 [...] to the patient:None. 2 Medication Reconciliation Report [facility] Emergency Department [address] [place] [address] Phone #: ext- [phone] 06/16/2020 16:20 Patient: BRUNA LEE Sex: F : 1985 Age: 34y Name Value Range Interpretation Code Description Data Elmira rce(s) Supporting Document(s) ID Date Data Source [id number] 06/16/2020 04:22:00 PM EDT [facility] 1 Medication Administration Record [facility] Emergency Department [address] [place] [address] Phone #: ext- [phone] 06/16/2020 16:20 Patient: BRUNA LEE Sex: F : 1985 Age: 34yWeight: 70.7 kgHeight/Length: 60 inBMI: 30.4ALLERGIES: Penicillins, Sulfa AntibioticsDate/Time Medication Administered Medication Ordered Name Value Range Interpretation Code Description Data Elmira rce(s) Supporting Document(s) ID Date Data Source [id number] 06/16/2020 04:22:00 PM EDT [facility] 1 General Instructions [facility] Emergency Department [address] [place] [address] Phone #: ext- [phone] 06/16/2020 16:20 Patient: [...] with patientand understanding verbalized. 2 General Instructions [facility] Emergency Department [address] [place] [address] Phone #: ext- [phone] 06/16/2020 16:20 Patient: BRUNA LEE Sex: F [...] may also be needed. 3 General Instructions [facility] Emergency Department [address] [place], [place] [address] Phone #: ext- [phone] 06/16/2020 16:20 [...] begin to improve in thenext 24 hours.Call [phone] if any of these occur: Trouble breathing Confusion 4 General Instructions [facility] Emergency Department [address] [place] [address] Phone #: ext- [phone] 06/16/2020 16:20 Patient: [...] or water and you are getting dehydrated [phone] [employer]. [address] [place] [address]. All rights reserved. This information is not intended as asubstitute for professional medical care. Always follow your healthcare professional's instructions.Elmo DietYour healthcare provider may recommend a bland diet if you have an upset stomach. It consists offoods that are mild and easy to digest. It is better to eat small frequent meals rather than 3 largemeals a day. 5 General Instructions [facility] Emergency Department [address] [place] [address] Phone #: ext- [phone] 06/16/2020 16:20 Patient: BRUNA LEE Sex: F : 1985 Age: 34yBeveragesOK: Fruit juices, non-caffeinated teas and coffee, non-carbonated watersAvoid: Carbonated beverage, caffeinated tea and coffee, all alcoholic beveragesBreadOK: Refined white, wheat or rye bread, kelly or soda crackers, Nettie toast, plain rolls, bagelsAvoid: Whole-grain breadCerealOK: Refined cereals: cooked or ready to eatAvoid: Whole-grain cereals and granola, or those containing bran, seeds or nutsDessertsOK: Peanut butter and all others except those to "avoid"Avoid: Chocolate, cocoa, coconut, popcorn, nuts, seeds, jam, marmaladeFruitsOK: Canned, cooked, frozen or fresh fruits without seeds or tough skinAvoid: Olives, skin and seeds of fruit, dried fruitMeats 6 General Instructions [facility] Emergency Department [address] [place] [address] Phone #: ext- [phone] 06/16/2020 16:20 Patient: [...] extracts, kristopher, cinnamon, thyme, mace, allspice, paprikaAvoid: Frederic powder, cloves, pepper, seed spices, garlic, gravy pickles, highly seasoned saladdressings [employer]. [address] [place] [address]. All rights reserved. This information is not intended as asubstitute for professional medical care. Always follow your healthcare professional's instructions.Clear Liquid Diet 7 General Instructions [facility] Emergency Department [address] [place] [address] Phone #: njp- [phone] 06/16/2020 16:20 Patient: BRUNA LEE Sex: F [...] grocery stores. You don't need aprescription. [employer]. [address] [place] [address]. All rights reserved. This information is not intended as asubstitute for professional medical care. Always follow your healthcare professional's instructions. You have been given the following additional information: Abdominal Pain, Unknown Cause, (Female) Diet, Elmo (Adult) Clear Liquid Diet 8 General Instructions [facility] Emergency Department [address] [place] [address] Phone #: ext- [phone] 06/16/2020 16:20 Patient: BRUNA LEE Sex: F : 1985 Age: 34yNo strenuous activity until better. Rest at home for one days.(Electronically signed by RASHID Sanchez 06/16/2020 21:17) Name Value Range Interpretation Code Description Data [place]ira rce(s) Supporting Document(s) ID Date Data Source [id number] 06/16/2020 04:22:00 PM EDT [facility] 1 Clinical Report - Nurses [facility] Emergency Department [address] [place] [address] Phone #: ext- [phone] 06/16/2020 16:20 Patient: BRUNA LEE Sex: F : 1985 Age: 34yTRIAGEArrived by EMS. Historian: patient. Unaccompanied. ( went to [facility] today for feeling like she had beenpoisoned, she thinks her mother and sister poisoned, feels like she is going down hill with her health, shestates she is suing [facility] because they are not listening to her, [facility]).Acuity: LEVEL 4.Chief Complaint: BIZARRE BEHAVIOR.Alert.Onset. 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 2 Clinical Report - Nurses [facility] Emergency Department [address] [place] [address] Phone #: ext- [phone] 06/16/2020 16:20 Patient: BRUNA LEE Sex: [...] Maldonado R.N. 3 Clinical Report - Nurses [facility] Emergency Department [address] [place] [address] Phone #: ext- [phone] 06/16/2020 16:20 [id number] Sex: F : 1985 Age: 34y Interventions [...] Moreau, RN 4 Clinical Report - Nurses [facility] Emergency Department [address] [place] [address] Phone #: ext- [phone] 06/16/2020 16:20 Patient: [...] Patient verbalized understanding. Written instructions provided in [place] Citizen. The patient was discharged by the physician assistant manager/embalmer. She was discharged home. She left via private vehicle and taxi. --20:18 06/16/20 Jovan Maldonado R.N. 20:00 06/16/20. BP: 121/50. MAP: 73. HR: 83. RR: 16. O2 saturation: 96%. Temp: 97.8 F. Pain level now: 05/05. --20:18 06/16/20 Jovan Maldonado R.N.Locked/Released at 06/17/2020 03:08 by Jovan Maldonado R.N. Name Value Range Interpretation Code Description Data [place]ira rce(s) Supporting Document(s) ID Date Data Source [id number] 06/16/2020 04:22:00 PM EDT [facility] 1 Clinical Report - Physicians/Mid Levels [facility] Emergency Department [address] [place] [address] Phone #: ext- [phone] 06/16/2020 16:20 Patient: [...] by a health care provider (went to [facility] today twice, escorted off property [...] Pharyngitis. 2 Clinical Report - Physicians/Mid Levels [facility] Emergency Department [address] [place] [address] Phone #: ext- [phone] 06/16/2020 16:20 [facility]: [id number] Sex: F : 1985 Age: 34y Polysubstance [...] Reflexes normal. 3 Clinical Report - Physicians/Mid [facility] Emergency Department [address] [place] [address] Phone #: ext- [phone] 06/16/2020 16:20 Patient: BRUNA LEE Sex: F [...] Beta-HCG, Quant Serum: (JENN: 06/16/2020 18:16) ( [facility] 06/16/2020 19:25) Final results Test Result Flag Units (Reference) HCG QUANT <0.5 mIU/mL Interpretation: Less than 5 mU/mL: Negative 6-10 mU/mL: Borderline (suggest repeat in 48 hours) >10: Positive Approx HCG range (mU/mL) Weeks post LMP 5.4-708 mU/mL 3-4 Weeks 217-31492 mU/mL 5-6 Weeks 4059-581486 mU/mL 7-8 Weeks 31946-444225 mU/mL 9-10 Weeks 45004-01933 mU/mL 12-14 Weeks 63607-03850 mU/mL 15-16 Weeks 8240-04514 mU/mL 17-18 Weeks CBC w Diff: (JENN: 06/16/2020 18:16) ( [facility] 06/16/2020 19:06) Final results Test [...] PANEL 4 Clinical Report - Physicians/Mid Levels [facility] Emergency Department [address] [place] [address] Phone #: ext- [phone] 06/16/2020 16:20 Patient: BRUNA LEE Sex: F [...] Male GFR Interprentation 20-49 yrs >60 mL/min Iankdl59-19 yrs >56 mL/min Normal 60-69 yrs >49 mL/min Normal 70-79yrs>42 mL/min Normal 80 and above >35 mL/min Normal Female GFRInterpretation 20-39 yrs >60 mL/min Normal 40-49 yrs >58 mL/minNormal 50-59 yrs >51 mL/min Normal 60-69 yrs >45 mL/min Bfekaw53-97 yrs >39 mL/min Normal 80 and above [...] (13 - 60)Magnesium: (JENN: 06/16/2020 18:16) ( [facility] 06/16/2020 19:11) Final results Test Result Flag Units (Reference) MAGNESIUM 2.2 MG/DL (1.7 - 2.2)Acetaminophen Level: (JENN: 06/16/2020 18:16) ( [facility] 06/16/2020 19:11) Final results Test Result Flag Units (Reference) ACETAMINOPHEN 8.7 UG/ML (0.0 - 30.0)Salicylate Level: (JENN: 06/16/2020 18:16) ( [facility] 06/16/2020 19:25) Final results Test Result Flag Units (Reference) 5 Clinical Report - Physicians/Mid Levels [facility] Emergency Department [address] [place] [address] Phone #: ext- [phone] 06/16/2020 16:20 Patient: BRUNA LEE Sex: F : 1985 Age: 34y SALICYLATE <0.3 L mg/dL (2.0 - 20.0) PT/PTT: (JENN: 06/16/2020 18:16) ( [facility] 06/16/2020 19:26) Final results Test Result Flag Units (Reference) PROTIME 12.5 SECONDS (11.0 - 15.5) INR 0.89 L (0.93 - 1.23) PTT 39.8 H SECONDS (24.8 - 36.7) \\BLDo\\INR INTERPRETATION\\BLDx\\ Therapeutic range for Coumadin and related oral anticoagulants. - International Normalized Ratio (INR): 2.0 - 3.0 for Venous Thrombosis, Pulmonary Embolus, Tissue heart valves, Acute AL Atrial Fibrillation, Valvular heart disease and recurrent Systemic Embolism. -International Normalized Ratio (INR): 2.5 - 3.5 for Mechanical Prosthetic valve. Troponin-T: (JENN: 06/16/2020 18:16) ( [facility] 06/16/2020 19:25) Final results Test Result Flag Units (Reference) TROPONIN T <0.01 NG/ML (0.00 - 0.10) TROPONIN T0.1 ng/ml Recommended as the clinical threshold value forTroponin T. Urinalysis: (JENN: 06/16/2020 18:46) ( [facility] 06/16/2020 19:24) Final results Test [...] Venous Blood Gas: (JENN: 06/16/2020 18:16) ( [facility] 06/16/2020 18:40) Final results Test [...] with grossly normal labs, normal activity on athletic monitor, othervitals WNL throughout ED course, resting comfortably in ED exam rm bed throughout ED course, no 6 Clinical Report - Physicians/Mid Levels [facility] Emergency Department [address] [place] [address] Phone #: ext- [phone] 06/16/2020 16:20 Patient: [...] appointment. 7 Clinical Report - Physicians/Mid Levels [facility] Emergency Department [address] [place] [address] Phone #: ext- [phone] 06/16/2020 16:20 Patient: [...] Name Value Range Interpretation Code Description Data [facility](s) Supporting Document(s) ID Date Data Source [id number] 06/16/2020 07:31:00 PM EDT [facility] Name Value Range Interpretation Code Description Data [facility](s) Supporting Document(s) DRUG SCREEN URINE [facility] URINE DRUG SCREEN Amphetamine [Presence] in Urine by Screen method PRESUMP POS ZAYNAB L: NEGATIVE [facility] BARBITURATES NEGATIVE NORMAL: NEGATIVE [facility] BENZO NEGATIVE NORMAL: NEGATIVE [facility] COCAINE PRESUMP POS NORMAL: NEGATIVE [facility] Tetrahydrocannabinol [Presence] in Urine NEGATIVE NORMAL: NEGATIVE [facility] OPIATES NEGATIVE NORMAL: NEGATIVE [facility] Phencyclidine [Presence] in Urine by Screen method NEGATIVE NOR MAL: NEGATIVE [facility] \\BLDo\\URINE DRUG SCR EEN INTERPRETATION\\BLDx\\ THE CUTOFFF LEVELS FOR DETECTION ARE FOLLOWS: AMPHETAMINES 1000 ng/ml BARBITUARATES 200 ng/ml BENZODIAZEPINES 100 ng/ml THC 50 ng/ml PHENCYCLIDINE 25 ng/ml OPIATES 300 ng/ml COCAINE 300 ng/ml ALL POSITIVES ARE CONSIDERED PRESUMPTIVE POSITIVE CONFIRMATION WILL BE PERFORMED AT PHYSICIAN REQUEST. ID Date Data Source [id number] 06/16/2020 07:24:00 PM EDT [facility] Name Value Range Interpretation Code Description Data [place]ira rce(s) Supporting Document(s) [facility] S[facility] Clean [facility] ital COLOR Yellow NORMAL: Yellow [facility] ospital CLARITY Clear NORMAL: Clear [facility] Ho spital Specific gravity of Urine by Test strip 1.010 1.001 - 1.030 [facility] pH 7 5 - 9 [facility] Glucose [Mass/volume] in Urine by Test strip NORM NORMAL: Negat [facility] Bilirubin.total [Presence] in Urine by Test strip NEG NORMAL: Negative [facility] Ketones [Presence] in Urine by Test strip NEG NORMAL: Negative [facility] Protein [Mass/volume] in Urine by Test strip NEG NORMAL: Negat [facility] Nitrite [Presence] in Urine by Test strip NEG NORMAL: Negative [facility] BLOOD NEG NORMAL: Negative [facility] Leukocyte esterase [Presence] in Urine by Test strip NEG ZAYNAB L: Negative [facility] Urobilinogen [Mass/volume] in Urine by Test strip NOR less kenna n 1.0 mg/dL [facility] MICROSCOPIC Not Indicate [facility] H ospital ID Date Data Source [id number] 06/16/2020 07:25:00 PM EDT [facility] Name Value Range Interpretation Code Description Data [place]ira rce(s) Supporting Document(s) Prothrombin time (PT) 12.5 SECONDS 11.0 - 15.5 [facility] INR in Platelet poor plasma by Coagulation assay 0.89 0.93 - 1. 23 L [facility] aPTT in Blood by Coagulation assay 39.8 SECONDS 24.8 - 36.7 H [facility] \\BLDo\\INR INTERPRETATION\\BLDx\\ Therapeutic range for Coumadin and related oral anticoagulants. - International Normalized Ratio (INR): 2.0 - 3.0 for Venous Thrombosis, Pulmonary Embolus, Tissue heart valves, Acute AL Atrial Fibrillation, Valvular heart disease and recurrent Systemic Embolism. - International Normalized Ratio (INR): 2.5 - 3.5 for Mechanical Prosthetic valve. ID Date Data Source [id number] 06/16/2020 07:25:00 PM EDT [facility] Name Value Range Interpretation Code Description Data [place] rce(s) Supporting Document(s) Choriogonadotropin.intact [Units/volume] in Serum or Plasma <0.5 mIU/ mL [facility] Interpr etation: Less than 5 mU/mL: Negative 6-10 mU/mL: Borderline (suggest repeat in 48 hours) >10: Positive Approx HCG range (mU/mL) Weeks post LMP 5.4-708 mU/mL 3-4 Weeks 217-88175 mU/mL 5-6 Weeks 4059-667098 mU/mL 7-8 Weeks 21436-057748 mU/mL 9-10 Weeks 09457-75797 mU/mL 12-14 Weeks 62029-72547 mU/mL 15-16 Weeks 8240- 50280 mU/mL 17-18 Weeks ID Date Data Source [id number] 06/16/2020 07:25:00 PM EDT [facility] Name Value Range Interpretation Code Description Data [place] rce(s) Supporting Document(s) TROPONIN T <0.01 NG/ML 0.00 - 0.10 [facility] ospital TROPONIN T0.1 ng/ml Recommended as the c linical threshold value forTroponin T. ID Date Data Source [id number] 06/16/2020 07:25:00 PM EDT [facility] Name Value Range Interpretation Code Description Data [place] rce(s) Supporting Document(s) SALICYLATE <0.3 mg/dL 2.0 - 20.0 L [facility] pital ID Date Data Source [id number] 06/16/2020 07:25:00 PM EDT [facility] Name Value Range Interpretation Code Description Data [place] rce(s) Supporting Document(s) COMPREHENSIVE METABOLIC PANEL [facility] COMPREHENSIVE METABOLIC PANEL Sodium [Moles/volume] in Serum or Plasma 139 mEq/L 134 - 153 [facility] Potassium [Moles/volume] in Serum or Plasma 4.3 mEq/L 3.6 - 5.0 [facility] Chloride [Moles/volume] in Serum or Plasma 100 mEq/L 98 - 107 [facility] Carbon dioxide, total [Moles/volume] in Serum or Plasma 26 MEQ/L 22 - 30 [facility] Glucose [Mass/volume] in Serum or Plasma 76 MG/DL 70 - 99 [facility] BUN 9 MG/DL 7 - 21 [facility] al Creatinine [Mass/volume] in Serum or Plasma 0.5 MG/DL 0.7 - 1.5 L [facility] BUN/CREAT 18 8 - 27 [facility] Protein [Mass/volume] in Serum or Plasma 8.0 G/DL 6.3 - 8.2 [facility] Albumin [Mass/volume] in Serum or Plasma 5.0 G/DL 3.9 - 5.0 [facility] Globulin [Mass/volume] in Serum by calculation 3.0 GM/DL 2.4 - 3.2 [facility] A/G RATIO 1.7 0.8 - 2.0 [facility] Calcium [Mass/volume] in Serum or Plasma 10.6 MG/DL 8.4 - 10.2 H [facility] Bilirubin.total [Mass/volume] in Serum or Plasma <0.7 MG/DL 0.2 - 1.3 [facility] Alkaline phosphatase [Enzymatic activity/volume] in Serum or Plasma 86 U/L 38 - 126 [facility] Aspartate aminotransferase [Enzymatic activity/volume] in Serum or Plasma 30 U/L 5 - 40 [facility] Alanine aminotransferase [Enzymatic activity/volume] in Seru m or Plasma 25 U/L 7 - 56 [facility] Anion gap 3 in Serum or Plasma 13.0 mmol/L 8.0 - 16.0 [facility] AGE 34 yrs [facility] NON-AA GFR >60 mL/min [facility] ital AFR AMER GFR >60 mL/min [facility] sp[facility] Male GFR In terprentation 20-49 [...] >32 mL/min Normal ID Date Data Source [id number] 06/16/2020 07:11:00 PM EDT [facility] Value Range Interpretation Code Description Data [place] rce(s) Supporting Document(s) Acetaminophen [Presence] in Urine 8.7 UG/ML 0.0 - 30.0 [facility] ID Date Data Source [id number] 06/16/2020 07:11:00 PM EDT [facility] Name Value Range Interpretation Code Description Data [place] rce(s) Supporting Document(s) Magnesium [Mass/volume] in Serum or Plasma 2.2 MG/DL 1.7 - 2.2 [facility] ID Date Data Source [id number] 06/16/2020 07:11:00 PM EDT [facility] Value Range Interpretation Code Description Data [place] rce(s) Supporting Document(s) Lipase [Enzymatic activity/volume] in Serum or Plasma 13 U/L 13 - 60 [facility] ID Date Data Source [id number] 06/16/2020 07:11:00 PM EDT [facility] Value Range Interpretation Code Description Data [place] rce(s) Supporting Document(s) Ethanol [Moles/volume] in Blood <10.0 MG/DL [facility] ALCOHOL % 0.01 % 0.00 - 0.01 [facility] ital *FOR MEDICAL PURPOSES ONLY * ID Date Data Source [id number] 06/16/2020 07:06:00 PM EDT [facility] Value Range Interpretation Code Description Data [place] rce(s) Supporting Document(s) CBC W/AUTOMATED DIFF [facility] COMPLETE BLOOD COUNT Leukocytes [#/volume] in Blood by Automated count 6.8 10^3/uL 4.2 - 1 1.0 [facility] Erythrocytes [#/volume] in Blood by Automated count 4.84 10^6/uL 4. 20 - 5.40 [facility] Hemoglobin [Mass/volume] in Blood 14.3 g/dL 12.0 - 16.0 [facility] Hematocrit [Volume Fraction] of Blood by Automated count 43.3 % 3 7.0 - 47.0 [facility] Erythrocyte mean corpuscular volume [Entitic volume] by Auto mated count 89.5 fL 81.0 - 101 [facility] Erythrocyte mean corpuscular hemoglobin [Entitic mass] by Automated count 29.5 pg 27.0 - 34.0 [facility] Erythrocyte mean corpuscular hemoglobin concentration [Mass/volume] by Automated count 33.0 g/dL 31.0 - 36.0 [facility] Erythrocyte distribution width [Ratio] by Automated count 13.2 % 11.5 - 14.5 [facility] Platelets [#/volume] in Blood by Automated count 340 10^3/uL 150 - 45 0 [facility] Platelet mean volume [Entitic volume] in Blood by Automated count 9.9 fL 7.4 - 10.4 [facility] Neutrophils/100 leukocytes in Blood by Automated count 60.0 % 37. 0 - 80.0 [facility] Lymphocytes/100 leukocytes in Blood by Manual count 29.5 % 25.0 - 40.0 [facility] Monocytes/100 leukocytes in Blood by Automated count 7.4 % 3.0 - 8.0 [facility] Eosinophils/100 leukocytes in Blood by Automated count 2.2 % 0.0 - 7.0 [facility] Basophils/100 leukocytes in Blood by Automated count 0.6 % 0.0 - 2.5 [facility] %IG 0.3 % 0.0 - [facility].0 [facility] 0.0 % 0.0 - 0.0 [facility] al Neutrophils [#/volume] in Blood by Automated count 4.05 10^3/uL 2.00 - 6.90 [facility] Lymphocytes [#/volume] in Blood by Automated count 1.99 10^3/uL 0.60 - 3.40 [facility] Monocytes [#/volume] in Blood by Automated count 0.50 10^3/uL 0.00 - 0.90 [facility] Eosinophils [#/volume] in Blood by Automated count 0.15 10^3/uL 0.00 - 0.70 [facility] Basophils [#/volume] in Blood by Automated count 0.04 10^3/uL 0.00 - 0.20 [facility] #IG 0.02 10^3/uL 0.00 - 0.10 [facility] #NRBC 0.00 10^3/uL 0.00 - 0.00 [facility] MANUAL DIFF NOT INDICATED [facility] RBC MORPH NOT INDICATED [facility] spital ID Date Data Source [id number] 06/16/2020 06:40:00 PM EDT [facility] Name Value Range Interpretation Code Description Data [place] rce(s) Supporting Document(s) pH of Serum or Plasma 7.37 7.32 - 7.43 [facility] pCO2 V 46.9 mm/HG 38.0 - 51.0 [facility] pO2 V 55.8 mm/HG 30.0 - 55.0 H [facility] Bicarbonate [Moles/volume] in Venous blood 26.5 meq/L 22.0 - 29.0 [facility] TCO2 V 28.0 meq/L 22.0 - 29.0 [facility] Base excess in Blood by calculation 0.7 -2.0 - 2.0 [facility] O2 SAT V 87.7 % 40.0 - 85.0 H [facility] ID Date Data Source [id number] 06/16/2020 06:40:00 PM EDT [facility] Name Value Range Interpretation Code Description Data [place] rce(s) Supporting Document(s) Lactate [Moles/volume] in Serum or Plasma 2.1 MMOL/L 0.2 - 2.2 [facility] ID Date Data Source [id number] 06/02/2020 09:35:00 PM EDT [facility] Name Value Range Interpretation Code Description Data [place] rce(s) Supporting Document(s) SARS-CoV-2 (COVID 19) NEGATIVE - SARS-CoV-2 (COVID19) [facility] This lab was ordered by [facility] a nd reported by [facility]. ID Date Data Source [id number] 04/21/2020 05:41:00 PM EST [facility] Name Value Range Interpretation Code Description Data [place] rce(s) Supporting Document(s) SARS coronavirus 2 RNA [Presence] in Res piratory specimen by MARK with probe detection NEGATIVE [facility] This lab was ordered by [facility] a nd reported by [facility]. ID Date Data Source [id number] 04/10/2020 02:50:00 PM EST [facility] Name Value Range Interpretation Code Description Data [place] rce(s) Supporting Document(s) SARS coronavirus 2 RNA [Presence] in Res piratory specimen by MARK with probe detection POSITIVE [facility] This lab was ordered by [facility] a nd reported by [facility]. ID Date Data Source [id number] 04/09/2020 02:48:00 AM EST [facility] Name Value Range Interpretation Code Description Data [place] rce(s) Supporting Document(s) SARS COVID ANTIGEN POSITIVE [facility] This lab was ordered by [facility] a nd reported by [facility]. ID Date Data Source [id number] 04/09/2020 02:46:00 AM EST [facility] Name Value Range Interpretation Code Description Data [place] rce(s) Supporting Document(s) SARS COVID ANTIGEN POSITIVE [facility] This lab was ordered by [facility] a nd reported by [facility]. ID Date Data Source [id number] 03/04/2020 12:09:00 PM EST [facility] Name Value Range Interpretation Code Description Data [place] rce(s) Supporting Document(s) FAZAL DIRECT Negative Negative [facility] Performed at: RN - [facility] [address] [id number] Director: Elsa Garcia MD, Phone: [phone] ID Date Data Source [id number] 03/04/2020 12:05:00 PM EST [facility] Name Value Range Interpretation Code Description Data [place] rce(s) Supporting Document(s) FAZAL Direct Negative Negative [facility] ID Date Data Source [id number] 03/03/2020 08:50:00 AM EST [facility] ADD ON TEST Name Value Range Interpretation Code Description Data [place] rce(s) Supporting Document(s) RHEUMATOID FACTOR SCREEN NEGATIVE NEGATIVE [facility] ID Date Data Source [id number] 03/03/2020 08:37:00 AM EST [facility] ADD ON TEST Name Value Range Interpretation Code Description Data [place] rce(s) Supporting Document(s) FREE T4 1.0 ng/dL 0.76-1.46 [facility] ID Date Data Source [id number] 03/03/2020 08:37:00 AM EST [facility] ADD ON TEST Name Value Range Interpretation Code Description Data [place] rce(s) Supporting Document(s) TSH 0.422 uIU/mL 0.36-3.74 [facility] ID Date Data Source [id number] 03/03/2020 08:11:00 AM EST [facility] ADD ON TEST Name Value Range Interpretation Code Description Data [place] rce(s) Supporting Document(s) C REACTIVE PROTEIN 15.6 mg/L 0.0-3.0 [facility] ID Date Data Source [id number] 03/03/2020 08:11:00 AM EST [facility] ADD ON TEST Name Value Range Interpretation Code Description Data [place] rce(s) Supporting Document(s) GLUCOSE 85 mg/dL 74-106 [facility] BLOOD UREA NITROGEN 11 mg/dL 7-18 [facility] ital CREATININE 0.88 mg/dL 0.6-1.0 [facility] SODIUM 135 mmol/L 136-145 L [facility] POTASSIUM 4.1 mmol/L 3.5-5.1 [facility] CHLORIDE 99 mmol/L 98-107 [facility] CO2 26 mmol/L 21-32 [facility] CALCIUM 8.8 mg/dL 8.5-10.1 [facility] ANION GAP 10.0 mmol/L 5-12 [facility] GLOMERULAR FILTRATION RATE 74 mL/min [facility] GFR IS CALCULATED IN mL/min/1.73m2 ZAYNAB L FUNCTION: >90MILDLY DECREASED: 60-89MILDY TO MODERATELY DECREASED: 45-59 MODERATELY TO SEVERELY DECREASED: 30-44SEVERELY DECREASED: 15-29RENAL FAILURE: <15 AST 32 U/L 15-37 [facility] ALT 32 U/L 12-78 [facility] ALKALINE PHOSPHATASE 65 U/L 46-116 [facility] pital TOTAL BILIRUBIN 0.2 mg/dL 0.2-1.0 [facility] TOTAL PROTEIN 6.9 g/dl 6.4-8.2 [facility] ALBUMIN 3.9 gm/dL 3.4-5.0 [facility] ID Date Data Source [id number] 03/01/2020 05:46:00 PM EST [facility] Name Value Range Interpretation Code Description Data [place] rce(s) Supporting Document(s) CHOLESTEROL 193 mg/dL 0-200 [facility] TRIGLYCERIDES 86 mg/dL 0-150 [facility] LDL CHOLESTEROL 111 mg/dL 0-100 H [facility] HDL CHOLESTEROL 65 mg/dL 40-60 H [facility] CHOL/HDL RATIO 3.0 0.0-5.0 [facility] ID Date Data Source [id number] 02/29/2020 10:40:00 AM EST [facility] Name Value Range Interpretation Code Description Data [place] rce(s) Supporting Document(s) SARS coronavirus 2 RNA [facility] This lab was ordered by [facility] and reported by [facility]. ID Date Data Source [id number] 12/10/2019 11:15:00 AM EDT [address] [id number] NAME: BRUNA LEE#: [id number] PHYSICIAN: PRERNA RIOS MD ADM. DATE: 12/05/19ACCOUNT #: [id number] DISCH. DATE:DISCHARGE SUMMARYIDENTIFICATION: A 34-year-old female with schizoaffective disorder,polysubstance dependence.CHIEF COMPLAINT: "I don't know why I am here."REASON FOR ADMISSION: Post- overdose.HISTORY OF PRESENT ILLNESS: The patient was interviewed in ICU after sheoverdosed. The patient was seen in [facility] for a regularconsultation, she could not [...] [place] The last time in our service with [...] ABUSE: None.SOCIAL HISTORY: The patient is from [place], did not finish high school.She was in [...] The patient was discharged with the medications Rwzhha14 mg p.o. daily, Neurontin 600 mg p.o. [...] be enrolled in outpatient chemical dependence in [place].MENTAL STATUS EXAMINATION: The patient is pleasant, cooperative. [...] Dictated: 12/10/2019 09:34:34Date Transcribed: 12/10/2019 10:15:05JV/Karen #: [id number]: 12/10/19 0934 Electronically SignedTRANS:12/10/19 1115 PRERNA RIOS MDTRANS BY:IATDAFUNMI SIGNED:12/10/19REPORT COPY TO: Name Value Range Interpretation Code Description Data [place] rce(s) Supporting Document(s) ID Date Data Source [id number] 12/10/2019 06:43:00 AM EDT [address] [id number] NAME: BRUNA LEE#: [id number] PHYSICIAN: PRERNA RIOS [facility] #: [id number] ADM. DATE: 12/05/19PATIENT : 89 DISCH. DATE: [...] follow-upappointmentDischarge InformationDISCHARGE INFORMATION* Thank you for [facility] and allowing us toserve you* Our Goal is to provide the highest quality of care.* This discharge information is to help you better understand your diagnosisand medication* Avoid taking ihef-duz-jmitzrx medicines unless approved by your physician.* Take your medications as prescribed. DO NOT stop any medications unlessapproved first* Weigh yourself daily. Report any gain of 5 lbs in a week* 24 Hour Crisis HOTLINE available: Call [facility] at [phone]* Chem. Dependency: Walk in Clinics [place] ([phone]) and [place] ([phone]) anytime Sunday thru Sunday 8 to 10am. [place] ([phone]) anytimeSunday thru Sunday 8 to 10am. [place] ([phone]) Sunday or Sunday from 8to 10am (Bring $30 to [facility]) SMOKIN G CESSATION* Smoking is dangerous to your health. It delays the healing process, andworks against your medications. Not smoking will improve your health* Our hospital participates with the Opt-to-Quit program. You will be contactedafter discharge by the [facility] Smoker's Quitline for support with tobaccocessation. You have the option once contacted to refuse this service.* You can also go online to [email or web address]. Free nicotine replacementsare available Attention* You should [...] rce(s) Supporting Document(s) ID Date Data Source [id number] 12/10/2019 02:15:00 AM EDT [address] [id number] NAME: BRUNA LEE#: [id number] PHYSICIAN: PRERNA RIOS MD ADM. DATE: 12/05/19PROGRESS NOTE DATE: 12/09/19 .#: [id number] #: [id number] NOTEIDENTIFICATION: A 34-year-old female with mood disorder [...] Dictated: 12/09/2019 10:52:52Date Transcribed: 12/10/2019 01:15:28JV/RAVJob #: [id number]: 12/09/19 1052 Electronically SignedTRANS:12/10/19 0215 PRERNA RIOS MDTRANS BY:IATDATE SIGNED:12/10/19REPORT COPY TO: Name Value Range Interpretation Code Description Data [place] rce(s) Supporting Document(s) ID Date Data Source [id number] 12/08/2019 11:58:00 AM EDT [facility] Name Value Range Interpretation Code Description Data [place] rce(s) Supporting Document(s) URINE COLOR Yellow [facility] UAPR Clear [facility] UGLU Negative NEGATIVE [facility] URINE BILIRUBIN Negative NEGATIVE [facility] UKET Negative NEGATIVE [facility] USG 1.015 1.010-1.025 [facility] UBLO Negative NEGATIVE [facility] UpH 8.0 5.0-8.0 [facility] UPRO Negative Negative [facility] UUB 0.2 mg/dL 0.2-1.0 [facility] UNIT Negative Negative [facility] ULEU Negative Negative [facility] ID Date Data Source [id number] 12/09/2019 04:57:00 AM EDT [facility] [address] [id number] NAME: BRUNA LEE#: [id number] PHYSICIAN: PRERNA RIOS MD ADM. DATE: 12/05/19PROGRESS NOTE DATE: 12/08/19 RM.#: [id number] #: [id number] NOTEIDENTIFICATION: A 34-year-old female with mood disorder, [...] Dictated: 12/08/2019 10:30:51Date Transcribed: 12/09/2019 03:57:49JV/RAVJob #: [id number]: 12/08/19 1030 Electronically SignedTRANS:12/09/19 0457 PRERNA RIOS MDTRANS BY:ADE SIGNED:12/09/19REPORT COPY TO: Name Value Range Interpretation Code Description Data [place] rce(s) Supporting Document(s) ID Date Data Source [id number] 12/06/2019 11:02:00 PM EDT [address] [id number] NAME: BRUNA LEE#: [id number] PHYSICIAN: PRERNA RIOS MD ADM. DATE: 12/05/19ACCOUNT #: [id number] .#: [id number] ASSESSMENTIDENTIFICATION: A 34-year-old female with schizoaffective disorder andpolysubstance dependence.CHIEF COMPLAINT: "I don't know why I am here."REASON FOR ADMISSION: Post-overdose.HISTORY OF PRESENT ILLNESS: According to the records and our interview, thepatient was brought to our service after being in ICU and the medical floorfor an overdose. The patient went to the outpatient clinic in [facility] and she passed out in consultation. [...] 2 weeks ago, that she was in [place] inpatient service for 5 days forthat.The patient [...] into detail.SOCIAL HISTORY: The patient is from [place]. Did not finish high school.She is in [...] Dictated: 12/06/2019 12:22:47Date Transcribed: 12/06/2019 22:02:14JV/GBJob #: [id number]: 12/06/19 1222 Electronically Signed TRANS:12/06/19 2302 PRERNA RIOS MDTRANS BY:ADE SIGNED:12/07/19REPORT COPY TO: Name Value Range Interpretation Code Description Data [place] rce(s) Supporting Document(s) ID Date Data Source [id number] 12/05/2019 02:12:00 AM EDT [facility] Name Value Range Interpretation Code Description Data [place] rce(s) Supporting Document(s) CKI 109 U/L 17-150 [facility] ID Date Data Source [id number] 12/05/2019 04:49:00 PM EDT [facility] [address] [id number] HISTORY AND PHYSICALPATIENT NAME: BRUNA LEE MR#: [id number] PHYSICIAN: PRERNA RIOS, MDAUTHOR: Diogenes Bueno MD [...] [facility]Past Medical/Surgical HistoryPast Medical/Surgical HistoryMedical [...] rce(s) Supporting Document(s) ID Date Data Source [id number] 12/05/2019 09:48:00 AM EDT [address] [id number] SUMMARYPATIENT NAME: BRUNA LEE MR#: [id number] PHYSICIAN: BEHZAD SOTO MDAUTHOR: Diogenes Bueno MD DATE: 12/04/19 #: ICUDISCHARGE DATE: 12/05/19 : 87Summary of HospitalizationReason for AdmissionOverdose on xanax, gabapentin, bath saltsHospital Lwknoz40 yo F who was admitted for an [...] and [facility].Diagnoses (Current Visit)Problem List1. Drug [...] taking the following medications:Gabapentin* (Neurontin*) 400 MG [id number] MILLIGRAM Orally DAILYContinue taking these medications:LEVETIRACETAM (LEVETIRACETA) 1,000 MG TABLET1,000 MILLIGRAM Orally TWICE DAILYQty = 60Amitriptyline HCl (Amitriptyline HCl) 100 MG [id number] MILLIGRAM Orally DAILYSUCRALFATE (Carafate*) 1 GM TABLET1 GM Orally TWICE DAILYcloniDINE* (CLONIDINE*) 0.1 MG TABLET0.1 MILLIGRAM Orally TWICE DAILYOmeprazole Magnesium (Prilosec Otc) 20 MG TABLET.DR20 MILLIGRAM Orally DAILYrispERIdone (RISPERDAL*) 0.5 MG TABLET2 MILLIGRAM Orally TWICE DAILYATOMOXETINE HCL (Strattera) 18 MG [id number] MILLIGRAM Orally DAILYBUPRENORPHINE HCL/NALOXONE HCL (Suboxone 8 MG-2 MG Sl Film) 1 EACH FILM1 MILLIGRAM SublinguallySUMATRIPTAN SUCCINATE (Imitrex*) 50 MG [id number] MILLIGRAM Orally DAILY NEEDED as needed for HeadacheOxcarbazepine (Trileptal) 150 MG [id number] MILLIGRAM Orally TWICE DAILYDischarge Activity: As tolerated, No liftingDischarge diet: RegularFollow-upFollow up with the mental health doctor [facility]Time spent by provider to complete discharge > 30 minutesDATE SIGNED: 12/05/19 Electronically SignedTIME SIGNED: 1912 DIOGENES BUENO MD Name Value Range Interpretation Code Description Data [place] rce(s) Supporting Document(s) ID Date Data Source [id number] 12/05/2019 09:46:00 AM EDT [address] [address]UISAVLQ NAME: BRUNA LEE#: [id number] PHYSICIAN: BEHZAD SOTO MDACCOUNT #: [id number] ADM. DATE: 12/04/19PATIENT : 89 DISCH. DATE: [50}DISCHARGE SUMMARYMedical Discharge PlanNicotine Replacement TherapyPrescribed at discharge Rx not offered at DCReason not offered [facility] Care InstructionsDischarge Activity: As tolerated, No liftingDischarge diet: RegularProblem ListMedical ProblemsAcute respiratory failure (Acute)Drug abuse (Chronic)Drug overdose (Acute)SchizophreniaSeizure disorder (Chronic, 12/20/18)Follow Up CareFollow Up:[facility] ItemsUrgent/Important items that need to be addressed at primary care follow-upappointmentPLEASE AVOID GABAPENTIN/XANAX/BATH SALTS IN THE FUTUREDischarge InformationDISCHARGE INFORMATION* Thank you for [facility] and allowing us toserve you* Our [...] Hour Crisis HOTLINE available: Call Re[employer] at [phone] SMOKING CESSATION* Smoking is dangerous to your health. It delays the healing process, andworks against your medications. Not smoking will improve your health* Our hospital participates with the Opt-to-Quit program. You will be contactedafter discharge by the [facility] Smoker's Quitline for support with tobaccocessation. You have the option once contacted to refuse this service.* You can also go online to www.T[employer]oko. Free nicotine replacementsare available Attent ion* You [...] rce(s) Supporting Document(s) ID Date Data Source [id number] 12/06/2019 02:37:00 AM EDT [facility] [address] [address]MAJHKWA NAME: BRUNA LEE#: [id number] PHYSICIAN: BEHZAD SOTO MD ADM. DATE: 12/04/19CONSULTING PHYSICIAN: PRERNA RIOS MD .#: ICUACCOUNT #: [id number] REPORTIDENTIFICATION: A 34-year-old female with mood disorder. This is a shortconsultation for a 34-year-old female who was unresponsive. The patient is inICU and at this point it is not clear the reason for an overdose.According to the records, the patient has a history of seizures, GERD, carpaltunnel, adjustment disorder, anxiety, depression, PTSD, and ADHD. Accordingto the records, the patient went to [facility] for an evaluation. Shehad an overdose. Was unconscious and at that point, according to the records,she stated that she injected bath salts in the morning, that is when shebecame unconscious and it is not clear who called the EMS [facility]. The patient has poor response to [...] the lastthing she remembers is being at [place] so she is oriented to person, not [...] Dictated: 12/05/2019 09:24:19Date Transcribed: 12/06/2019 01:37:33JV/GBJob #: [id number]: 12/05/19923 Electronically SignedTRANS:12/06/19 0237 PRERNA RIOS MDTRANS BY:ADE SIGNED:12/09/19REPORT COPY TO: Name Value Range Interpretation Code Description Data [place] rce(s) Supporting Document(s) ID Date Data Source [id number] 12/05/2019 08:01:00 AM EDT [facility] l Patient: COME, BRUNA Observation Repor t - Physicians/Mid Levels [facility].VisitID: [id number] [place] [address] [phone], FRegistration Date/Time: 12/04/2019 15:46 Weight:68.4 kg (E). [...] by Marie Euceda 12/04/2019 20:43) Addenda for COMEBRUAN VisitID: [id number] Date: 12/04/2019 12/05/2019 7:59Spoke to [facility] nurse Deborah who wanted to come to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 Date: 1985 Address: [address] [place], [place] [address]Sex: Female Rx Written Rx Dispensed Drug Quantity [...] table. 6 Clinical Report - Physicians/Mid Levels [facility] Emergency Department [address] [place] [address] Phone #: ext- [phone] 11/07/2019 00:19 Patient: [...] Oral. 7 Clinical Report - Physicians/Mid Levels [facility] Emergency Department [address] [place] [address] Phone #: ext- [phone] 11/07/2019 00:19 Patient: BRUNA LEE [facility]#: [id number] Sex: F : 1985 Age: 34y RisperDAL [...] rce(s) Supporting Document(s) ID Date Data Source [id number] 11/07/2019 03:20:00 AM EDT [facility] Name Value Range Interpretation Code Description Data [place] rce(s) Supporting Document(s) HCG SERUM QUAL NEGATIVE NORMAL: NEGATIVE [facility] HCG SERUM QL REENTER NEGATIVE NORMAL: NEGATIVE [facility] { KIT LOT # [id number] ){ KIT EXP DATE 12-08-20 ){ PROCEDURAL CONTROL VALID ) ID Date Data Source [id number] 11/07/2019 03:15:00 AM EDT [facility] Name Value Range Interpretation Code Description Data [place] rce(s) Supporting Document(s) Creatine kinase [Enzymatic activity/volume] in Serum or Plasma 3 13 U/L 30 - 170 H [facility] ID Date Data Source [id number] 11/07/2019 03:14:00 AM EDT [facility] Name Value Range Interpretation Code Description Data [place] rce(s) Supporting Document(s) COMPREHENSIVE METABOLIC PANEL [facility] COMPREHENSIVE METABOLIC PANEL Sodium [Moles/volume] in Serum or Plasma 140 mEq/L 134 - 153 [facility] Potassium [Moles/volume] in Serum or Plasma 3.8 mEq/L 3.6 - 5.0 [facility] Chloride [Moles/volume] in Serum or Plasma 100 mEq/L 98 - 107 [facility] Carbon dioxide, total [Moles/volume] in Serum or Plasma 30 MEQ/L 22 - 30 [facility] Glucose [Mass/volume] in Serum or Plasma 98 MG/DL 65 - 110 [facility] BUN 14 MG/DL 7 - 21 [facility] Creatinine [Mass/volume] in Serum or Plasma 0.7 MG/DL 0.7 - 1.5 [facility] BUN/CREAT 20 8 - 27 [facility] Protein [Mass/volume] in Serum or Plasma 5.9 G/DL 6.3 - 8.2 L [facility] Albumin [Mass/volume] in Serum or Plasma 3.6 G/DL 3.9 - 5.0 L [facility] Globulin [Mass/volume] in Serum by calculation 2.3 GM/DL 2.4 - 3.2 L [facility] A/G RATIO 1.6 0.8 - 2.0 [facility] Calcium [Mass/volume] in Serum or Plasma 9.2 MG/DL 8.4 - 10.2 [facility] Bilirubin.total [Mass/volume] in Serum or Plasma <0.7 MG/DL 0.2 - 1.3 [facility] Alkaline phosphatase [Enzymatic activity/volume] in Serum or Plasma 62 U/L 38 - 126 [facility] Aspartate aminotransferase [Enzymatic activity/volume] in Serum or Plasma 302 U/L 5 - 40 H [facility] Alanine aminotransferase [Enzymatic activity/volume] in Seru m or Plasma 125 U/L 7 - 56 H [facility] Anion gap 3 in Serum or Plasma 10.0 mmol/L 8.0 - 16.0 [facility] AGE [address] [facility] al NON-AA GFR >60 mL/min [facility] ital AFR AMER GFR >60 mL/min [facility] spital Male GFR In terprentation 20-49 [...] >32 mL/min Normal ID Date Data Source [id number] 11/07/2019 02:27:00 AM EDT [facility] Name Value Range Interpretation Code Description Data [place] rce(s) Supporting Document(s) CBC W/AUTOMATED DIFF [facility] COMPLETE BLOOD COUNT Leukocytes [#/volume] in Blood by Automated count 8.3 10^3/uL 4.2 - 1 1.0 [facility] Erythrocytes [#/volume] in Blood by Automated count 3.87 10^6/uL 4. 20 - 5.40 L [facility] Hemoglobin [Mass/volume] in Blood 11.6 g/dL 12.0 - 16.0 L [facility] Hematocrit [Volume Fraction] of Blood by Automated count 36.0 % 3 7.0 - 47.0 L [facility] Erythrocyte mean corpuscular volume [Entitic volume] by Auto mated count 93.0 fL 81.0 - 101 [facility] Erythrocyte mean corpuscular hemoglobin [Entitic mass] by Automated count 30.0 pg 27.0 - 34.0 [facility] Erythrocyte mean corpuscular hemoglobin concentration [Mass/volume] by Automated count 32.2 g/dL 31.0 - 36.0 [facility] Erythrocyte distribution width [Ratio] by Automated count 13.3 % 11.5 - 14.5 [facility] Platelets [#/volume] in Blood by Automated count 271 10^3/uL 150 - 45 0 [facility] Platelet mean volume [Entitic volume] in Blood by Automated count 9.5 fL 7.4 - 10.4 [facility] Neutrophils/100 leukocytes in Blood by Automated count 82.6 % 37. 0 - 80.0 H [facility] Lymphocytes/100 leukocytes in Blood by Manual count 14.3 % 25.0 - 40.0 L [facility] Monocytes/100 leukocytes in Blood by Automated count 1.6 % 3.0 - 8.0 L [facility] Eosinophils/100 leukocytes in Blood by Automated count 0.8 % 0.0 - 7.0 [facility] Basophils/100 leukocytes in Blood by Automated count 0.2 % 0.0 - 2.5 [facility] %IG 0.5 % 0.0 - 0.0 [facility] % 0.0 - 0.0 [facility] Neutrophils [#/volume] in Blood by Automated count 6.85 10^3/uL 2.00 - 6.90 [facility] Lymphocytes [#/volume] in Blood by Automated count 1.19 10^3/uL 0.60 - 3.40 [facility] Monocytes [#/volume] in Blood by Automated count 0.13 10^3/uL 0.00 - 0.90 [facility] Eosinophils [#/volume] in Blood by Automated count 0.07 10^3/uL 0.00 - 0.70 [facility] Basophils [#/volume] in Blood by Automated count 0.02 10^3/uL 0.00 - 0.20 [facility] #IG 0.04 10^3/uL 0.00 - 0.10 [facility] ospital #NRBC 0.00 10^3/uL 0.00 - 0.00 [facility] o[facility] MANUAL DIFF NOT INDICATED [facility] RBC MORPH NOT INDICATED [facility] spital ID Date Data Source [id number] 11/07/2019 03:14:00 AM EDT [facility] Name Value Range Interpretation Code Description Data [place] rce(s) Supporting Document(s) DRUG SCREEN URINE [facility] URINE DRUG SCREEN Amphetamine [Presence] in Urine by Screen method PRESUMP POS ZAYNAB L: NEGATIVE [facility] BARBITURATES NEGATIVE NORMAL: NEGATIVE [facility] BENZO NEGATIVE NORMAL: NEGATIVE [facility] COCAINE NEGATIVE NORMAL: NEGATIVE [facility] Tetrahydrocannabinol [Presence] in Urine NEGATIVE NORMAL: NEGATIVE [facility] OPIATES NEGATIVE NORMAL: NEGATIVE [facility] Phencyclidine [Presence] in Urine by Screen method NEGATIVE NOR MAL: NEGATIVE [facility] \\BLDo\\URINE DRUG SCR EEN INTERPRETATION\\BLDx\\ THE CUTOFFF LEVELS FOR DETECTION ARE FOLLOWS: AMPHETAMINES 1000 ng/ml BARBITUARATES 200 ng/ml BENZODIAZEPINES 100 ng/ml THC 50 ng/ml PHENCYCLIDINE 25 ng/ml OPIATES 300 ng/ml COCAINE 300 ng/ml ALL POSITIVES ARE CONSIDERED PRESUMPTIVE POSITIVE CONFIRMATION WILL BE PERFORMED AT PHYSICIAN REQUEST. ID Date Data Source [id number] 11/07/2019 02:27:00 AM EDT [facility] Name Value Range Interpretation Code Description Data [place] rce(s) Supporting Document(s) URINALYSIS [facility]ames URINALYSIS SOURCE R [facility] COLOR yellow NORMAL: Yellow [facility] CLARITY clear NORMAL: Clear [facility] Specific gravity of Urine by Test strip 1.020 1.001 - 1.030 [facility] pH 6 5 - 9 [facility] Glucose [Mass/volume] in Urine by Test strip N[facility] Bilirubin.total [Presence] in Urine by Test strip NEG NORMAL: Negative [facility] Ketones [Presence] in Urine by Test strip NEG NORMAL: Negative [facility] Protein [Mass/volume] in Urine by Test strip NEG NORMAL: Negat [facility] Nitrite [Presence] in Urine by Test strip NEG NORMAL: Negative [facility] BLOOD NEG NORMAL: Negative [facility] Leukocyte esterase [Presence] in Urine by Test strip NEG ZAYNAB L: Negative [facility] Urobilinogen [Mass/volume] in Urine by Test strip 1 less kenna n 1.0 mg/dL [facility] MICROSCOPIC Not Indicate [facility] ID Date Data Source [id number] 10/30/2019 10:27:00 AM EDT [facility] Name Value Range Interpretation Code Description Data [place] rce(s) Supporting Document(s) BG FASTING 132 mg/dL 70-100 H [facility] TSH 0.526 microintl units/mL 0.358-3.740 N [facility] ID Date Data Source [id number] 10/30/2019 10:27:00 AM EDT [facility] Name Value Range Interpretation Code Description Data [place] rce(s) Supporting Document(s) HCT 37.6 % 36.0-47.0 N [facility] HGB 11.8 g/dL 12.0-15.5 L [facility] MCH 31.4 G/DL pg 32.0-36.5 L [facility] MCHC 29.9 PG % 27.0-33.0 N [facility] PLATELETS 209 10 10*3/mm3 150-450 N [facility] RBC 3.94 10 10*6/mm3 4.00-5.40 L [facility] RDW 12.6 % 11.5-14.5 N [facility] WBC TOTAL 4.5 4.0-10.0 N [facility] Procedure Social History Code Duration Value [...] Ex-drinker (finding) comp leted Ex- drinker (finding) [facility] Tobacco use and exposure 09/24/2020 12:00:00 AM EDT Never used co mpleted Never used [facility] Cigarettes smoked current (pack per day) - Reported 09/25/19 12:00:00 AM EDT UNK completed [facility] Smoking 09/24/2020 12:00:00 AM EDT Smoker, current status unkn own completed Smoker, current status unknown [facility] Alcohol intake 08/06/2020 12:00:00 AM EDT Ex-drinker (finding) comp leted Ex- drinker (finding) [facility] Smoking 07/22/2020 12:00:00 AM EDT Current Smoker completed Curre nt Smoker eCW1 ([facility]) Smoking 07/22/2020 12:00:00 AM EDT Current Smoker completed Curre nt Smoker eCW1 ([facility]) Smoking 07/22/2020 12:00:00 AM EDT Current Smoker completed Curre nt Smoker eCW1 ([facility]) Smoking 06/14/2020 12:00:00 AM EDT Current Smoker completed Curre nt Smoker eCW1 ([facility]) Smoking 06/14/2020 12:00:00 AM EDT Current Smoker completed Curre nt Smoker eCW1 ([facility]) Smoking 06/14/2020 12:00:00 AM EDT Current Smoker completed Curre nt Smoker eCW1 ([facility]) Smoking 06/14/2020 12:00:00 AM EDT Current Smoker completed Curre nt Smoker eCW1 ([facility]) Smoking 03/30/2020 12:00:00 AM EST Current Smoker completed Curre nt Smoker eCW1 ([facility]) Smoking 03/30/2020 12:00:00 AM EST Current Smoker completed Curre nt Smoker eCW1 ([facility]) Smoking 03/30/2020 12:00:00 AM EST Current Smoker completed Curre nt Smoker eCW1 ([facility]) Smoking 03/30/2020 12:00:00 AM EST Current Smoker completed Curre nt Smoker eCW1 ([facility]) Smoking 03/30/2020 12:00:00 AM EST Current Smoker completed Curre nt Smoker eCW1 ([facility]) Smoking 03/30/2020 12:00:00 AM EST Current Smoker completed Curre nt Smoker eCW1 ([facility]) Smoking 03/30/2020 12:00:00 AM EST Current Smoker completed Curre nt Smoker eCW1 ([facility]) Smoking 03/30/2020 12:00:00 AM EST Current Smoker completed Curre nt Smoker eCW1 ([facility]) Smoking 03/30/2020 12:00:00 AM EST Current Smoker completed Curre nt Smoker eCW1 ([facility]) Smoking 03/30/2020 12:00:00 AM EST Current Smoker completed Curre nt Smoker eCW1 ([facility]) Smoking 03/30/2020 12:00:00 AM EST Current Smoker completed Curre nt Smoker eCW1 ([facility]) Smoking 03/30/2020 12:00:00 AM EST Current Smoker completed Curre nt Smoker eCW1 ([facility]) Smoking 03/30/2020 12:00:00 AM EST Current Smoker completed Curre nt Smoker eCW1 ([facility]) Smoking 03/30/2020 12:00:00 AM EST Current Smoker completed Curre nt Smoker eCW1 ([facility]) Smoking 03/30/2020 12:00:00 AM EST Current Smoker completed Curre nt Smoker eCW1 ([facility]) Smoking 03/30/2020 12:00:00 AM EST Current Smoker completed Curre nt Smoker eCW1 ([facility]) Smoking 03/30/2020 12:00:00 AM EST Current Smoker completed Curre nt Smoker eCW1 ([facility]) Smoking 03/01/2020 12:00:00 AM EST Current Smoker completed Curre nt Smoker eCW1 ([facility]) Smoking 03/01/2020 12:00:00 AM EST Current Smoker completed Curre nt Smoker eCW1 ([facility]) Smoking 03/01/2020 12:00:00 AM EST Current Smoker completed Curre nt Smoker eCW1 ([facility]) Smoking 02/18/2020 12:00:00 AM EST Current Smoker completed Curre nt Smoker eCW1 ([facility]) Smoking 12/24/2019 12:00:00 AM EDT Current Smoker completed Curre nt Smoker eCW1 ([facility]) Smoking 12/24/2019 12:00:00 AM EDT Current Smoker completed Curre nt Smoker eCW1 ([facility]) Smoking 12/24/2019 12:00:00 AM EDT Current Smoker completed Curre nt Smoker eCW1 ([facility]) Smoking 12/24/2019 12:00:00 AM EDT Current Smoker completed Curre nt Smoker eCW1 ([facility]) Smoking 12/24/2019 12:00:00 AM EDT Current Smoker completed Curre nt Smoker eCW1 ([facility]) Smoking 12/24/2019 12:00:00 AM EDT Current Smoker completed Curre nt Smoker eCW1 ([facility]) Smoking 12/24/2019 12:00:00 AM EDT Current Smoker completed Curre nt Smoker eCW1 ([facility]) Smoking 10/31/2019 12:00:00 AM EDT Current Smoker completed Curre nt Smoker eCW1 ([facility]) Smoking 10/31/2019 12:00:00 AM EDT Current Smoker completed Curre nt Smoker eCW1 ([facility]) Smoking 10/31/2019 12:00:00 AM EDT Current Smoker completed Curre nt Smoker eCW1 ([facility]) Vital Signs ID Date Data Source UNK Name Value Range Interpretation Code Description Data Source(s) Diastolic blood pressure 56 mm[Hg] 56 mm[Hg] MATIAS ([facility]) Body height 61 [in_i] 61 [in_i] MATIAS ([facility]) Body mass index (BMI) [Ratio] 31.5 kg/m2 31.5 k g/m2 MATIAS ([facility]) Systolic blood pressure 83 mm[Hg] 83 mm[Hg] A THENA ([facility]) Body weight 2664 [oz_av] 2664 [oz_av] MATIAS ([facility]) Body height 152.40 cm 152.40 cm [facility] ([facility]) Body weight 74.026 kg 74.026 kg [facility] ([facility]) Body mass index (BMI) [Ratio] 31.87 kg/m2 Overweight 31.87 kg/m2 [facility] ([facility]) Systolic blood pressure 116 mm[Hg] 116 mm[Hg] N extGen ([facility]) Diastolic blood pressure 76 mm[Hg] 76 mm[Hg] [employer] ([facility]) Body height 60.0 [in_i] 60.0 [in_i] eCW1 ([facility]) Body weight 183.0 [lb_av] 183.0 [lb_av] eCW1 ([facility]) Body mass index (BMI) [Ratio] 35.74 kg/m2 35.74 kg/m2 eCW1 ([facility]) Heart rate 119 /min 119 /min eCW1 ([facility]) Respiratory rate 18 /min 18 /min eCW1 ([facility]) Oxygen saturation in Arterial blood by Pulse oximetry 98 % 98 % eCW1 ([facility]) Body height 60 [in_i] 60 [in_i] eCW1 ([facility]) Body weight 180.6 [lb_av] 180.6 [lb_av] eCW1 ([facility]) Body mass index (BMI) [Ratio] 35.27 kg/m2 35.27 kg/m2 eCW1 ([facility]) Heart rate 93 /min 93 /min eCW1 ([facility]) Respiratory rate 18 /min 18 /min eCW1 ([facility]) Oxygen saturation in Arterial blood by Pulse oximetry 99 % 99 % eCW1 ([facility]) Body height 60 [in_i] 60 [in_i] eCW1 ([facility]) Body weight 186.8 [lb_av] 186.8 [lb_av] eCW1 ([facility]) Body mass index (BMI) [Ratio] 36.48 kg/m2 36.48 kg/m2 eCW1 ([facility]) Heart rate 89 /min 89 /min eCW1 ([facility]) Respiratory rate 18 /min 18 /min eCW1 ([facility]) Oxygen saturation in Arterial blood by Pulse oximetry 97 % 97 % eCW1 ([facility]) Body height 60 [in_i] 60 [in_i] eCW1 ([facility]) Body weight 164.4 [lb_av] 164.4 [lb_av] eCW1 ([facility]) Body mass index (BMI) [Ratio] 32.10 kg/m2 32.10 kg/m2 eCW1 ([facility]) Body temperature 98.0 [degF] 98.0 [degF] eCW1 ( [facility]) Heart rate 86 /min 86 /min eCW1 ([facility]) Respiratory rate 18 /min 18 /min eCW1 ([facility]) Oxygen saturation in Arterial blood by Pulse oximetry 98 % 98 % eCW1 ([facility]) Respiratory rate 18 /min 18 /min eCW1 ([facility]) Oxygen saturation in Arterial blood by Pulse oximetry 99 % 99 % eCW1 ([facility]) Body height 60 [in_i] 60 [in_i] eCW1 ([facility]) Body weight 157.2 [lb_av] 157.2 [lb_av] eCW1 ([facility]) Body mass index (BMI) [Ratio] 30.70 kg/m2 30.70 kg/m2 eCW1 ([facility]) Body temperature 98.7 [degF] 98.7 [degF] eCW1 ( [facility]) Heart rate 100 /min 100 /min eCW1 ([facility]) ID Date Data Source [id number] 10/18/2020 09:45:12 AM EDT [facility] Name Value Range Interpretation Code Description Data Source(s) TRANSFER FROM [facility] ID Date Data Source [id number] 08/27/2020 04:17:02 PM EDT [facility] Name Value Range Interpretation Code Description Data Source(s) TRANSFER FROM [facility] ID Date Data Source [id number] 08/17/2020 03:58:41 PM EDT [facility] Name Value Range Interpretation Code Description Data Source(s) TRANSFER FROM [facility] ID Date Data Source [id number] 12/26/2019 01:56:00 PM EDT [facility] Name Value Range Interpretation Code Description Data Source(s) WEIGHT 72.3 kilos 72.3 kilos [facility] HEIGHT 152.4 centimeters 152.4 centimeters [facility] WEIGHT 75 kilos 75 kilos [facility] HEIGHT 152.4 centimeters 152.4 centimeters [facility] ID Date Data Source [id number] 12/10/2019 06:07:00 AM EDT [facility] Name Value Range Interpretation Code Description Data Source(s) WEIGHT 68 kilos 68 kilos [facility] HEIGHT 152.4 centimeters 152.4 centimeters [facility] WEIGHT 68.4 kilos 68.4 kilos [facility] HEIGHT 152.4 centimeters 152.4 centimeters [facility] ID Date Data Source [id number] [facility] Value Range Interpretation Code Description Data Source(s) WEIGHT 75 kilos 75 kilos [facility] HEIGHT 152.4 centimeters 152.4 centimeters [facility] ID Date Data Source [id number] 12/08/2019 01:43:00 PM EDT [facility] james Name Value Range Interpretation Code Description Data Source(s) WEIGHT 74 kilos 74 kilos [facility] al HEIGHT 160.02 centimeters 160.02 centimeter [facility] Patient Treatment Plan of Care Planned Activity Planned Date Details Description Data Source (s) Citalopram 10 MG Oral Tablet 09/30/2020 12:00:00 AM [facility] Levetiracetam 1000 MG Oral Tablet 09/29/2020 12:00:00 AM [facility] gabapentin 600 MG Oral Tablet 09/29/2020 12:00:00 AM [facility] Chlorpromazine hydrochloride 100 MG Oral Tablet 09/29/2020 12:00:00 AM [facility] Magnesium Hydroxide 80 MG/ML Oral Suspension 09/13/2020 08:49:03 AM [facility] sennosides, [facility] 8.6 MG Oral Tablet 09/13/2020 08:49:03 AM [facility] Docusate Sodium 100 MG Oral Capsule 09/13/2020 08:49:03 AM [facility] Bisacodyl 10 MG Rectal Suppository 09/13/2020 08:49:03 AM [facility] Buprenorphine 8 MG / Naloxone 2 MG Oral Strip 08/18/2020 12:00:00 A M [facility] Diphenhydramine Hydrochloride 25 MG Oral Capsule 08/17/2020 10:11:0 1 AM [facility] Asenapine 10 MG Sublingual Tablet 08/17/2020 12:00:00 AM [facility] benztropine mesylate 1 MG Oral Tablet 08/17/2020 12:00:00 AM [facility] gabapentin 300 MG Oral Capsule 08/17/2020 12:00:00 AM [facility] Diphenhydramine Hydrochloride 25 MG Oral Capsule 08/17/2020 12:00:0 0 AM [facility] Buprenorphine 8 MG / Naloxone 2 MG Sublingual Tablet 12:00:00 AM [facility] Clonidine Hydrochloride 0.2 MG Oral Tablet 08/17/2020 12:00:00 AM E DT [facility] Aluminum Hydroxide 40 MG/ML / Magnesium Hydroxide 40 MG/ML / Simethicone 4 MG/ML Oral Suspension [facility] MG/ML Oral Suspension 08/06/2020 07:39:11 PM [facility] gabapentin 600 MG Oral Tablet 07/17/2020 12:00:00 AM [facility] Doxepin Hydrochloride 25 MG Oral Capsule 03/09/2020 12:00:00 AM EST eCW1 ([facility]) Doxepin Hydrochloride 25 MG Oral Capsule 03/09/2020 12:00:00 AM EST eCW1 ([facility]) Doxepin Hydrochloride 25 MG Oral Capsule 03/09/2020 12:00:00 AM EST eCW1 ([facility]) Clonidine Hydrochloride 0.2 MG Oral Tablet 12/24/2019 12:00:00 AM E DT eCW1 ([facility]) Clonidine Hydrochloride 0.2 MG Oral Tablet 12/24/2019 12:00:00 AM E DT eCW1 ([facility]) Clonidine Hydrochloride 0.2 MG Oral Tablet 12/24/2019 12:00:00 AM E DT eCW1 ([facility]) Clonidine Hydrochloride 0.2 MG Oral Tablet 12/24/2019 12:00:00 AM E DT eCW1 ([facility]) Clonidine Hydrochloride 0.2 MG Oral Tablet 12/24/2019 12:00:00 AM E DT eCW1 ([facility]) Clonidine Hydrochloride 0.2 MG Oral Tablet 12/24/2019 12:00:00 AM E DT eCW1 ([facility]) Clonidine Hydrochloride 0.2 MG Oral Tablet 12/24/2019 12:00:00 AM E DT eCW1 ([facility]) lisdexamfetamine dimesylate 50 MG Oral Capsule [Vyvans e] 11/04/2019 12:00:00 AM EDT eCW1 ([facility]) Clonazepam 0.5 MG Oral Tablet 11/04/2019 12:00:00 AM EDT eCW1 ([facility]) Citalopram 20 MG Oral Tablet [Celexa] 11/04/2019 12:00:00 AM EDT eCW1 ([facility]) Sumatriptan 25 MG Oral Tablet MATIAS ([facility]) Buprenorphine 12 MG / Naloxone 3 MG Oral Strip [Suboxone] [place] ([facility]) benztropine mesylate 1 MG Oral Tablet [facility] Clonidine Hydrochloride 0.2 MG Oral Tablet [facility] Levetiracetam 1000 MG Oral Tablet [facility] Lurasidone Hydrochloride 40 MG Oral Tablet [facility] Trazodone Hydrochloride 50 MG Oral Tablet [facility] gabapentin 300 MG Oral Capsule [facility] 24 HR Nicotine 0.875 MG/HR Transdermal Patch [facility]
[2020-12-26 14:22] LABS: AMPHETAMINES LEVEL URINE NEGATIVE (NEGATIVE); BARBITURATES URINE NEGATIVE (NEGATIVE); BENZODIAZEPINES URINE NEGATIVE (NEGATIVE); CANNABINOIDS URINE POSITIVE (NEGATIVE); COCAINE METABOLITE URINE NEGATIVE (NEGATIVE); METHADONE URINE POSITIVE (NEGATIVE); OPIATES URINE NEGATIVE (NEGATIVE); PHENCYCLIDINE URINE NEGATIVE (NEGATIVE)
[2020-12-26] MEDS ORDERED: LEXA1TAB PO (14:34)
[2020-12-26 15:53] LABS: HEMATOCRIT 43.8 % (36.0-47.0); HEMOGLOBIN 14.2 g/dl (12.0-15.5); MEAN CORPUSCULAR HEMOGLOBIN 30.5 pg (27.0-33.0); MEAN CORPUSCULAR HGB CONC 32.4 g/dl (32.0-36.5); PLATELET COUNT, AUTOMATED 370 10^3/uL (150-450); RED BLOOD COUNT 4.66 10^6/uL (4.00-5.40); WHITE BLOOD COUNT 8.4 10^3/uL (4.0-10.0)
[2020-12-26 16:19] LABS: HCG, SERUM QUALITATIVE NEGATIVE (NEGATIVE)
[2020-12-26 16:23] LABS: ACETAMINOPHEN LEVEL < 2.0 UG/ML (10.0-30.0); ALT/SGPT 24 U/L (12-78); BILIRUBIN,DIRECT 0.1 MG/DL (0.0-0.2); BILIRUBIN,TOTAL 0.3 MG/DL (0.2-1.0); BLOOD UREA NITROGEN 14 MG/DL (7-18); CALCIUM LEVEL 9.3 MG/DL (8.5-10.1); CARBON DIOXIDE LEVEL 32 MEQ/L (21-32); CHLORIDE LEVEL 106 MEQ/L (98-107); CREATININE FOR GFR 0.76 MG/DL (0.55-1.30); ETHYL ALCOHOL (ETHANOL) < 0.003 % (0.000-0.010); GLOMERULAR FILTRATION RATE > 60.0 (>60); GLUCOSE, FASTING 78 MG/DL (70-100); POTASSIUM SERUM 4.2 MEQ/L (3.5-5.1); SALICYLATE LEVEL 4.4 MG/DL (5.0-30.0); SODIUM LEVEL 140 MEQ/L (136-145); THYROID STIMULATING HORMONE 0.119 uIU/ML (0.358-3.740); TOTAL PROTEIN 7.7 GM/DL (6.4-8.2)
[2020-12-26] MEDS ORDERED: HOME MED LIST COMPLETE! XX SCH (16:25)
[2020-12-26] MEDS ORDERED: GABAPENTIN 400MG CAP PO ONE (18:10)
[2020-12-26] MEDS ORDERED: levETIRAcetam 250MG TABLET (KEPPRA) PO ONE (18:10)
--- NOTE | 2020-12-27 05:52 | ECGEPIP ---
[facility] - ED Test Date: 2020-12-26 Pat Name: MELANY LEE Department: Room: - Gender: Female Manager Recovery: TARYN : [id number] Requested By: Seth Limon Order Number: [id number] Reading MD: Seth Mari Measurements Intervals [place] Rate: 56 P: 39 UT: 140 QRS: 39 QRSD: 86 T: 18 QT: 456 QTc: 440 Interpretive Statements Sinus bradycardia NONSPECIFIC T WAVE ABNORMALITY(S) SIMILAR TO 09/11/20 Electronically Signed on 12-27-2020 5:51:38 EDT by Seth Mari
[2020-12-27] MEDS ORDERED: METHADONE 10 MG TAB (S0109) PO ONE (07:35)
[2020-12-27] MEDS ORDERED: GABAPENTIN 400MG CAP PO ONE (07:35)
[2020-12-27] MEDS ORDERED: levETIRAcetam 250MG TABLET (KEPPRA) PO ONE (07:35)
[2020-12-27] MEDS ORDERED: ESCITALOPRAM OXALATE 10 MG TAB (LEXAPRO) PO ONE (08:00)
[2020-12-27] MEDS ORDERED: MED NOTE (08:10)
[2020-12-27] MEDS ORDERED: ESCITALOPRAM OXALATE 10 MG TAB (LEXAPRO) PO SCH (09:00)
[2020-12-27] MEDS ORDERED: METHADONE 10 MG TAB (S0109) PO SCH (09:00)
[2020-12-27 10:02] LABS: RSV AMPLIFICATION NEGATIVE (NEGATIVE)
[2020-12-27] MEDS ORDERED: MAALOX 30 ML SUSP *UDC PO PRN (10:50)
[2020-12-27] MEDS ORDERED: SUMAtriptan SUCCINATE 25 MG TAB PO PRN (10:50)
[2020-12-27] MEDS ORDERED: MOM 30ML SUSPENSION UDC PO PRN (10:50)
--- OUTSIDE RECORDS SUMMARY | 2020-12-27 11:13 | CCD ---
Author Author [facility] Organization [facility] Address Unknown Phone Unavailable Care Team Providers Care Dietary Director Name Role Phone Yessi Ritchie MD Unavailable [...] Chato OTERO MD Unavailable Unavailable DESJARLAIS, KAROLYN SKIN THERAPIST Unavailable Unavailable DESJARLAIS, KAROLYN SKIN THERAPIST Unavailable Unavailable DESJARLAIS, KAROLYN SKIN THERAPIST Unavailable Unavailable DESJARLAIS, KAROLYN SKIN THERAPIST Unavailable Unavailable DESJARLAIS, KAROLYN SKIN THERAPIST Unavailable Unavailable DESJARLAIS, KAROLYN SKIN THERAPIST Unavailable Unavailable DESJARLAIS, KAROLYN SKIN THERAPIST Unavailable Unavailable DESJARLAIS, KAROLYN SKIN THERAPIST Unavailable Unavailable DESJARLAIS, KAROLYN SKIN THERAPIST Unavailable Unavailable Lester, A Mavis POND SUPERVISOR Unavailable Unavailable Lester, A Mavis POND SUPERVISOR Unavailable Unavailable Lester, A Mavis POND SUPERVISOR Unavailable Unavailable Lester, A Mavis POND SUPERVISOR Unavailable Unavailable Lester, A Mavis POND SUPERVISOR Unavailable Unavailable Lester, A Mavis POND SUPERVISOR Unavailable Unavailable Lester, A Mavis POND SUPERVISOR Unavailable Unavailable Lester, A Mavis POND SUPERVISOR Unavailable Unavailable Lester, A Mavis POND SUPERVISOR Unavailable Unavailable Lester, A Mavis POND SUPERVISOR Unavailable Unavailable Lester, A Mavis POND SUPERVISOR Unavailable Unavailable Lester, A Mavis POND SUPERVISOR Unavailable Unavailable Lester, A Mavis POND SUPERVISOR Unavailable Unavailable Lester, A Mavis POND SUPERVISOR Unavailable Unavailable Lester, A Mavis POND SUPERVISOR Unavailable Unavailable Lester, A Mavis POND SUPERVISOR Unavailable Unavailable Lester, A Mavis POND SUPERVISOR Unavailable Unavailable Lester, A Mavis POND SUPERVISOR Unavailable Unavailable Lester, A Mavis POND SUPERVISOR Unavailable Unavailable Lester, A Mavis POND SUPERVISOR Unavailable Unavailable Lester, A Mavis POND SUPERVISOR Unavailable Unavailable Lester, A Mavis POND SUPERVISOR Unavailable Unavailable Lester, A Mavis POND SUPERVISOR Unavailable Unavailable Lester, A Mavis POND SUPERVISOR Unavailable Unavailable Lester, A Mavis POND SUPERVISOR Unavailable Unavailable Lester, A Mavis POND SUPERVISOR Unavailable Unavailable Lester, A Mavis POND SUPERVISOR Unavailable Unavailable Lester, A Mavis POND SUPERVISOR Unavailable Unavailable Lester, A Mavis POND SUPERVISOR Unavailable Unavailable Lester, A Mavis POND SUPERVISOR Unavailable Unavailable Lester, A Mavis POND SUPERVISOR Unavailable Unavailable Jeremie ÁLVAREZ MD Unavailable Unavailable Jeremie ÁLVAREZ MD Unavailable Unavailable Kori STEVEN MD Unavailable Unavailable Kori STEVEN MD Unavailable Unavailable Kori STEVEN MD Unavailable Unavailable Kori STEVEN MD Unavailable Unavailable Kori STEVEN MD Unavailable Unavailable Kori STEVEN MD Unavailable Unavailable TENISHAKori RUSH MD Unavailable Unavailable Kori STEVEN MD Unavailable Unavailable TENISHAKori RUSH MD Unavailable Unavailable TENISHAKori RUSH MD Unavailable Unavailable TENISHAKori RUSH MD Unavailable Unavailable TENISHAKori RUSH MD Unavailable Unavailable TENISHAKori RUSH MD Unavailable Unavailable TENISHAKori RUSH MD Unavailable Unavailable TENISHAKori RUSH MD Unavailable Unavailable TENISHAKori RUSH MD Unavailable Unavailable TENISHAKori RUSH MD Unavailable Unavailable TENISHAKori RUSH MD Unavailable Unavailable TENISHAKori RUSH MD Unavailable Unavailable TENISHAKori RUSH MD Unavailable Unavailable FUNEZ, EVANGELICAL MD Unavailable Unavailable FUNEZ, EVANGELICAL MD Unavailable Unavailable FUNEZ, EVANGELICAL MD Unavailable Unavailable FUNEZ, EVANGELICAL MD Unavailable Unavailable FUNEZ, EVANGELICAL MD Unavailable Unavailable FUNEZ, EVANGELICAL MD Unavailable Unavailable FUNEZ, EVANGELICAL MD Unavailable Unavailable FUNEZ, EVANGELICAL MD Unavailable Unavailable Ching, Reginah W Kassidy POND SUPERVISOR-C Unavailable Unavailabl e Ching, Reginah W Kassidy POND SUPERVISOR-C Unavailable Unavailabl e Ching, Reginah W Kassidy POND SUPERVISOR-C Unavailable Unavailabl e Ching, Reginah W Kassidy POND SUPERVISOR-C Unavailable Unavailabl e Ching, Reginah W Kassidy POND SUPERVISOR-C Unavailable Unavailabl e Ching, Reginah W Kassidy POND SUPERVISOR-C Unavailable Unavailabl e Ching, Reginah W Kassidy POND SUPERVISOR-C Unavailable Unavailabl e Ching, Reginah W Kassidy POND SUPERVISOR-C Unavailable Unavailabl e Ching, Reginah W Kassidy POND SUPERVISOR-C Unavailable Unavailabl e Ching, Reginah W Kassidy POND SUPERVISOR-C Unavailable Unavailabl e Ching, Reginah W Kassidy POND SUPERVISOR-C Unavailable Unavailabl e Ching, Reginah W Kassidy POND SUPERVISOR-C Unavailable Unavailabl e Ching, Reginah W Kassidy POND SUPERVISOR-C Unavailable Unavailabl e Ching, Reginah W Kassidy POND SUPERVISOR-C Unavailable Unavailabl e Ching, Reginah W Kassidy POND SUPERVISOR-C Unavailable Unavailabl e Ching, Reginah W Kassidy POND SUPERVISOR-C Unavailable Unavailabl e Ching, Elijah Ballyce POND SUPERVISOR-C Unavailable Unavailabl e Ching, Elijah Olvera Kassidy POND SUPERVISOR-C Unavailable Unavailabl e Ching, Elijah W Kassidy POND SUPERVISOR-C Unavailable Unavailabl e Ching, Elijah Ballyce POND SUPERVISOR-C Unavailable Unavailabl e Ching, Elijah W Kassidy POND SUPERVISOR-C Unavailable Unavailabl e Ching, Elijah W Kassidy POND SUPERVISOR-C Unavailable Unavailabl e Ching, Elijah W Kassidy POND SUPERVISOR-C Unavailable Unavailabl e Ching, Elijah W Kassidy POND SUPERVISOR-C Unavailable Unavailabl e Ching, Elijah W Kassidy POND SUPERVISOR-C Unavailable Unavailabl e Ching, Elijah W Kassidy POND SUPERVISOR-C Unavailable Unavailabl e Ching, Elijah W Kassidy POND SUPERVISOR-C Unavailable Unavailabl e Ching, Elijah W Kassidy POND SUPERVISOR-C Unavailable Unavailabl e Ching, Elijah W Kassidy POND SUPERVISOR-C Unavailable Unavailabl e Ching, Elijah W Kassidy POND SUPERVISOR-C Unavailable Unavailabl e Ching, Elijah Ballyce POND SUPERVISOR-C Unavailable Unavailabl e Ching, Elijah Olvera Kassidy POND SUPERVISOR-C Unavailable Unavailabl e LESTER, MATIAS PA Unavailable [...] Unavailable Dwello PA PA, Nora Unavailable Unavailable Brown, Cle[place]ont Unavailable Brown, [place] Unavailable MARK, L GINGER PA Unavailable Unavailable [...] Unavailable MARK, L GINGER PA Unavailable Unavailable MAHESH RECINOS Unavailable Unavailable JORJE HERNANDEZ, MAHESH Unavailable Unavailable MAHESH RECINOS MD Unavailable Unavailable Mavis BatistaP POND SUPERVISOR Unavailable Unavailable KATRIN BLUM MD Unavailable Unavailable [...] Unavailable Unavailable JESICALino Cullen MD Unavailable Unavailable EJSICALino Cullen MD Unavailable Unavailable Lino MOONEY MD Unavailable Unavailable Lino MOONEY MD Unavailable Unavailable Lino MOONYE MD Unavailable Unavailable Lino MOONEY MD Unavailable [...] BROWN, L JANE Unavailable Unavailable ESCALERA, ANAHI SKIN THERAPIST Unavailable Unavailable ESCALERA, ANAHI SKIN THERAPIST Unavailable Unavailable ESCALERA, ANAHI SKIN THERAPIST Unavailable Unavailable BEHZAD SOTO MD Unavailable Unavailable [...] is protected by Article 27-F of the [facility] Public Health law. If you continue you may have access to information: Regarding HIV / AIDS; Provided by facilities licensed or operated by the [facility] Office of Mental Health; or Provided by the [facility] Office for People With Developmental Disabilities. If such information is present, then the following [facility] mandated warning applies: This information has been [...] law may result in a fine or residential sentence or both. A general authorization for the release of medical or other information is NOT sufficient authorization for further disc losure. Allergies and Adverse Reactions Type Description Substance Reaction Status Data Source(s ) Propensity to adverse reactions ZIPRASIDONE ZIPRASIDONE [facility] Propensity to adverse reactions TRIMETHOPRIM Trimethoprim [facility] Propensity to adverse reactions SULFAMETHOXAZOLE Sulfamethoxazole [facility] Propensity to adverse reactions PENICILLINS Penicillin [facility] Propensity to adverse reactions HALOPERIDOL HALOPERIDOL [facility] Propensity to adverse reactions DEXTROAMPHETAMINE DEXTROAMPHETAMINE [facility] Drug allergy Drug allergy AMOXICLIIN SWELLING, HIVES [facility] Drug allergy olanzapine ol[facility]apine [facility] Drug allergy trimethoprim trimethoprim "BLISTERS IN MOUTH" [facility] Drug allergy sulfamethoxazole sulfamethoxazole "BLISTERS IN MOUTH" [facility] Drug allergy haloperidol haloperidol [facility] Drug allergy Sulfa (Sulfonamide Antibiotics) Sulfa (Sulfonami de Antibiotics) "BLISTERS IN MOUTH" [facility] Drug allergy Penicillins Penicillins SWELLING, HIVES [facility] Encounters Encounter Providers Location Date Indications Data Source(s ) Outpatient Attender: KAROLYN VAN SKIN THERAPIST 11/24/2020 03: 20:00 PM EDT [facility] Francesco Ritchie MD: [address] [place] [phone], Ph. Attender: Francesco Ritchie MD [facility] Medical 11/12/2020 12:00:00 AM EDT MATIAS ([facility]) OFFICE VISIT, ESTOutpatient Attender: Nora MIKE PPNCNY [place] 11/05/2020 01:30:00 PM EDT - 11/05/2020 01:30:00 PM EDT Delusional disorders [facility] ([facility]) Delusional disorders Emergency Attender: EVONNE HAGENConsultant: STAFF NON 11/03/2020 11:35:00 AM EDT - 11/03/2020 03:27:00 PM EDT [facility] Patient discharged. Outpatient [facility] 10/12/2020 12:00:00 AM EDT eCW1 ([facility]) Emergency Attender: Matt Ruby MDConsultant: STAFF NON 10/03/2020 06:06:00 PM EDT - 10/03/2020 07:27:00 PM EDT [facility] Patient discharged. Inpatient Attender: EVANGELICALELIDIA Elizabeth nder: MARY JO PARADA MDAdmitter: MARY JO PARADA MDReferrer: ANAHI ESCALERA NP [id number] 09/11/2020 03:40:00 PM EDT - 09/29/2020 03:01:00 PM EDT [facility] Patient discharged. Emergency Attender: ZAYNAB STEVEN MDConsultant: STAFF NON 09/09/2020 04:46:00 PM EDT - 09/09/2020 09:35:00 PM EDT [facility] Patient discharged. Outpatient Attender: KAROLYN VAN NP 09/03/2020 11: 00:00 AM EDT [facility] Outpatient [facility] 08/31/2020 12:00:00 AM EDT eCW1 ([facility]) Inpatient Attender: MIRLANDE Elizabeth nder: GENO GAMBLE MDAdmitter: EVANGELICALELIDIA FUNEZ MDReferrer: KARI OTERO MD [id number] 08/25/2020 03:33:00 PM EDT - 08/27/2020 12:52:00 PM EDT [facility] Patient discharged. Inpatient Attender: MIRLANDE Elizabeth nder: MARY JO PAARDA MDAttender: Hiral Liriano MDAdmitter: MARY JO PARADA MDReferrer: MARY JO PARADA MD [id number] 08/06/2020 12:00:00 AM EDT - 08/17/2020 12:08:00 PM EDT Suicidal ideations [facility] Suicidal ideations Patient discharged. Outpatient [facility] 07/22/2020 12:00:00 AM EDT eCW1 ([facility]) Outpatient Attender: Jane Edward 07/15/2020 08:03:00 AM E DT [facility] Outpatient [facility] 07/15/2020 12:00:00 AM EDT eCW1 ([facility]) Outpatient [facility] 07/12/2020 12:00:00 AM EDT eCW1 ([facility]) Emergency Attender: EVONNE HAGENConsultant: STAFF NON 06/28/2020 07:41:00 PM EDT - 06/28/2020 09:08:00 PM EDT [facility] Patient discharged. Emergency Attender: EVONNE Pottsltant: STAFF NON 06/16/2020 04:22:00 PM EDT - 06/16/2020 08:01:00 PM EDT [facility] Patient discharged. Outpatient Attender: Jane Denson: JANE EDWARD 06/16/2020 09:02:00 AM EDT [facility] Outpatient [facility] 06/14/2020 12:00:00 AM EDT eCW1 ([facility]) Outpatient [facility] 06/11/2020 12:00:00 AM EDT eCW1 ([facility]) Outpatient Attender: Jane Denson: JANE EDWARD 05/26/2020 05:00:00 PM EDT [facility] Outpatient [facility] 05/26/2020 12:00:00 AM EDT eCW1 ([facility]) Outpatient [facility] 05/24/2020 12:00:00 AM EDT eCW1 ([facility]) Outpatient [facility] 05/24/2020 12:00:00 AM EDT eCW1 ([facility]) Outpatient [facility] 05/14/2020 12:00:00 AM EDT eCW1 ([facility]) Outpatient [facility] 05/04/2020 12:00:00 AM EST eCW1 ([facility]) Outpatient Attender: KAROLYN VAN NP 04/29/2020 01: 20:00 PM EST [facility] Outpatient [facility] 04/28/2020 12:00:00 AM EST eCW1 ([facility]) Outpatient [facility] 04/28/2020 12:00:00 AM EST eCW1 ([facility]) Outpatient [facility] 04/23/2020 12:00:00 AM EST eCW1 ([facility]) Outpatient Attender: Jane Denson: JANE EDWARD 04/20/2020 03:00:00 PM [facility] Outpatient [facility] 04/19/2020 12:00:00 AM EST eCW1 ([facility]) Outpatient [facility] 04/16/2020 12:00:00 AM EST eCW1 ([facility]) Outpatient Attender: FAHAD MOONEY MD 04/15/2020 09:4 5:00 AM [facility] Outpatient [facility] 04/12/2020 12:00:00 AM EST eCW1 ([facility]) Outpatient [facility] 04/12/2020 12:00:00 AM EST eCW1 ([facility]) Outpatient [facility] 04/08/2020 12:00:00 AM EST eCW1 ([facility]) Outpatient [facility] 04/08/2020 12:00:00 AM EST eCW1 ([facility]) Outpatient [facility] 04/08/2020 12:00:00 AM EST eCW1 ([facility]) Outpatient [facility] 04/05/2020 12:00:00 AM EST eCW1 ([facility]) Outpatient Attender: NATHAN PAUL PA-C 03/30/2020 10:30:00 AM [facility] Outpatient Attender: Shira Youngblood PA-C 03/30/2020 10:18 :00 AM [facility] Outpatient [facility] 03/30/2020 12:00:00 AM EST eCW1 ([facility]) Outpatient Attender: Jane EdwardAttender: JANE EDWARD 03/23/2020 02:00:00 PM [facility] Outpatient Attender: Jane EdwardAttender: JANE EDWARD 03/17/2020 10:30:00 AM [facility] Outpatient Attender: Jane Denson: JANE EDWARD 03/11/2020 04:00:00 PM [facility] Outpatient Attender: FAHAD MOONEY MD 03/11/2020 06:3 0:00 AM [facility] Admission cancelled. Disregard status an d admitted date. Outpatient Attender: KAROLYN VAN NP 03/09/2020 03: 40:00 PM [facility] Outpatient [facility] 03/03/2020 12:00:00 AM EST eCW1 ([facility]) Outpatient Attender: Shira Becerraferrer: Shira Youngblood PA-C EMERGENCY ROOM-LAB 03/01/2020 04:49:00 PM EST - 03/01/2020 04:49:00 PM [facility] Outpatient Attender: Shira Youngblood PA-C 03/01/2020 03:45 :00 PM [facility] Outpatient [facility] 03/01/2020 12:00:00 AM EST eCW1 ([facility]) Outpatient [facility] 03/01/2020 12:00:00 AM EST eCW1 ([facility]) Outpatient Attender: KAROLYN VAN NP 02/18/2020 02: 40:00 PM [facility] Outpatient Attender: Kassidy SERRANO 02/18/2020 10:00:0 0 AM [facility] Outpatient [facility] 02/18/2020 12:00:00 AM EST eCW1 ([facility]) Outpatient [facility] 02/10/2020 12:00:00 AM EST eCW1 ([facility]) Outpatient [facility] 02/03/2020 12:00:00 AM EST eCW1 ([facility]) Outpatient [facility] 01/14/2020 12:00:00 AM EST eCW1 ([facility]) Outpatient [facility] 01/06/2020 12:00:00 AM EST eCW1 ([facility]) Outpatient Attender: JOHNATHON PATEL 01/02/2020 10:06:00 A [facility] Outpatient [facility] 01/02/2020 12:00:00 AM EST eCW1 ([facility]) Outpatient Attender: Jane EdwardAttender: JANE EDWARD 01/01/2020 02:30:00 PM [facility] Outpatient Attender: KAROLYN VAN NP 12/24/2019 11: 00:00 AM [facility] Outpatient Attender: Shira Youngblood PA-C 12/24/2019 08:24 :00 AM [facility] Outpatient [facility] 12/24/2019 12:00:00 AM EDT eCW1 ([facility]) Outpatient Attender: Jane EdwardAttender: JANE EDWARD 12/23/2019 01:54:00 PM EDT [facility] Outpatient [facility] 12/23/2019 12:00:00 AM EDT eCW1 ([facility]) Outpatient Attender: Mavis DIEGO 12/12/2019 11:3 5:02 AM EDT [facility] Outpatient Attender: Janetai EdwardAttender: JANE EDWARD 12/11/2019 03:00:00 PM EDT [facility] Outpatient [facility] 12/09/2019 12:00:00 AM EDT eCW1 ([facility]) Outpatient Attender: Mavis DIEGO 12/05/2019 01:2 6:01 PM EDT [facility] Inpatient Attender: PRERNA RIOS MDAdmitter: PRERNA Alvarado MD ER-3RD 12/05/2019 10:08:00 AM EDT - 12/10/2019 01:07:00 PM EDT [facility]ital Patient discharged. Outpatient Attender: NATHAN PAUL PA-C 12/05/2019 09:03:00 AM EDT [facility] Admission cancelled. Disregard status an d admitted date. Inpatient Attender: BEHZAD SOTO MD Attender: BEHZAD SOTO MDAttender: DIOGENES ÁLVAREZ MDAttender: DIOGENES BUENO MDAdmitter: BEHZAD SOTO MD ER-ICU 12/04/2019 11:06:00 PM EDT - 12/05/2019 10:03:00 AM EDT [facility] Patient discharged. Emergency Attender: GINGER Salaser: Melissa Youngblood PA-C EMERGENCY ROOM-ER 12/04/2019 04:21:00 PM EDT - 12/04/2019 08:40:00 PM EDT [facility] Patient discharged. Outpatient Attender: KAROLYN VAN NP 12/04/2019 03: 11:00 PM EDT [facility] Outpatient Attender: Mavis PATEL 11/29/2019 07:0 4:03 PM EDT [facility] Outpatient Attender: JOHNATHON PATEL 11/29/2019 07:04:01 P M EDT [facility] Outpatient Attender: Mavis DIEGO FP 11/24/2019 12:2 9:00 PM EDT [facility] Emergency Attender: EVONNE Lackeyant: STAFF CAMPOVERDE 11/07/2019 12:19:00 AM EDT - 11/07/2019 04:20:00 AM EDT [facility] Patient discharged. Outpatient [facility] 11/07/2019 12:00:00 AM EDT eCW1 ([facility]) Outpatient Attender: Mavis DIEGO FP 11/04/2019 02:2 6:02 PM EDT [facility] Outpatient Attender: KAROLYN VAN NP [facility] Mavis DIEGO FP 11/02/2019 01:2 6:00 PM EDT [facility] Outpatient Attender: Mavis DIEGO 10/31/2019 06:0 2:00 PM EDT [facility] Outpatient Attender: JOHNATHON DIEGO 10/31/2019 06:01:59 P M EDT [facility] Outpatient Attender: Mavis DIEGO 10/31/2019 06:0 1:03 PM EDT [facility] Outpatient Attender: JOHNATHON PATEL 10/31/2019 06:01:01 P M EDT [facility] Outpatient Attender: Shira Youngblood PA-C 10/31/2019 09:06 :00 AM EDT [facility] Outpatient [facility] 10/31/2019 12:00:00 AM EDT eCW1 ([facility]) Outpatient Attender: Jane EdwardAttender: JANE EDWARD 10/27/2019 11:00:00 AM [facility] Outpatient Attender: KAROLYN VAN NP 10/21/2019 03: 20:00 PM [facility] Outpatient Attender: KATRIN BLUM MDAttender: KATRIN BLUM 10/06/2019 09:37:00 AM [facility] Outpatient Attender: KATRIN BLUM MDAttender: KATRIN BLUM 08/04/2019 09:42:00 AM [facility] Outpatient Attender: KATRIN BLUM MDAttender: KATRIN BLUM 07/07/2019 03:30:00 PM [facility] Outpatient Attender: KATRIN BLUM MDAttender: KATRIN BLUM 04/21/2019 10:29:00 AM [facility] Outpatient Attender: MAHESH RECINOS MDAttender: MAHESH RECINOS 02/24/2019 01:46:00 PM [facility] Outpatient Attender: Jane EdwardAttender: JANE EDWARD 02/21/2019 10:00:00 AM [facility] Outpatient Attender: MAHESH RECINOS MDAttender: MAHESH RECINOS 02/10/2019 02:18:00 PM [facility] Inpatient Attender: CHAO GUERRA MDAttdoug harjinder: PRERNA RIOS MDAdmitter: PRERNA RIOS MD ER-3RD 12/23/2018 04:01:00 PM EDT - 12/26/2018 01:22:00 PM T [facility] Patient discharged. Inpatient Attender: ONDINA RAMIREZ MDAdmitter: ONDINA RAMIREZ MD E R-ICU 12/19/2018 05:26:00 PM EDT - 12/23/2018 03:42:00 PM EDT [facility] Patient discharged. Emergency Attender: MATIAS MIKE EMERGENCY ROOM-ER 03:51:00 PM EDT - 12/19/2018 04:47:00 PM [facility] Patient discharged. Medications Medication Brand Name [...] propionate 0.05 MG/ACTUAT Metered Dose [place] [facility] [place] 50 mcg/actuation FLUTICASONE PROPIONATE 11/02/2020 12:00:00 AM [...] active Take 1 tablet by mouth [facility] Buprenorphine 8 MG / Naloxone 2 MG Oral Strip buprenorphine-naloxone (SUBOXONE) 8-2 MG per sublingual film 2 Film buprenorphine-naloxone (SUBOXONE) 8-2 MG per sublingual film 2 Film 09/29/2020 09:00:00 AM EDT 2 {film} Sublingual active 2 Film, Sublingual, Daily Standard, First dose (after last reorder) on Sun09/29/20 at 0900, For 7 days [facility] Medication administered onsite 1,000 mg 09/29/2020 [...] tablet by cali th Three times daily [facility] Levetiracetam 1000 MG Oral Tablet levETIRAcetam 1000 M G Oral Tablet (KEPPRA) levETIRAcetam 1000 MG Oral Tablet (KEPPRA) 09/29/2020 12:00:00 AM EDT 1000 mg Oral active Take 1 tablet by cali th Two Times Daily [facility] Chlorpromazine hydrochloride 100 MG Oral Tablet chlorproMAZINE HCl 100 MG Oral Tablet (THORAZINE) chlorproMAZINE HCl 100 MG Oral Tablet (THORAZINE) 05/2020 12:00:00 AM EDT 100 mg Oral active Take 1 tablet by mouth Two Times Daily [facility] 600 mg 09/29/2020 12:00:00 AM EDT [...] on Sun09/27/20 at 2100, For 30 doses [facility] Medication administered onsite chlorproMAZINE (THORAZINE) injection 100 mg [id number] 09/27/2020 01:00:00 PM EDT 100 mg Intramuscular completed 100 mg, Intramuscular, Once, On Sun09/27/20 at 1300, For 1 dose
May be given over objection
[facility] Medication administered onsite chlorproMAZINE (THORAZINE) injection 100 mg [id number] 09/25/2020 02:00:00 PM EDT 100 mg Intramuscular completed 100 mg, Intramuscular, Once, On 09/25/20 at 1400, For 1 dose [facility] Medication administered onsite diphenhydrAMINE (BENADRYL) injection 50 mg [id number] 09/25/2020 02:00:00 PM EDT 50 mg Intramuscular completed 50 mg, Intramuscular, Once, On 09/25/20 at 1400, For 1 dose [facility] Medication administered onsite olanzapine 5 MG/ML Injectable Solution OLANZapine (ZYP REXA) injection 10 mg OLANZapine (ZYPREXA) injection 10 mg 09/25/2020 09:15:00 AM EDT 10 mg Intramuscular completed 10 mg, Intr amuscular, Once, On 09/25/20 at 0915, For 1 dose
Reconstitute 10 mg vial with 2.1 mL SWFI; resulting solution is ~5 mg/mL; Use within 1 hour following reconstitution.
[facility] Medication administered onsite Chlorpromazine hydrochloride 100 MG Oral Tablet chlorproMAZINE (THORAZINE) tablet 100 mg chlorproMAZINE (THORAZINE) tablet 100 mg 09/23/2020 10 :00:00 PM EDT 100 mg Oral aborted 100 mg, Oral, Nightly, First dose (after last modification) on Sun09/23/20 at 2200, For 28 doses [facility] Medication administered onsite gabapentin 300 MG Oral Capsule gabapentin (NEURONTIN) capsule 600 mg gabapentin (NEURONTIN) capsule 600 mg 09/23/2020 03:00:00 PM EDT 600 mg Oral active 600 mg, Oral, Three Times D aily Standard, Indications: substance use anxiety, First dose (after last modification) on Chari 09/23/20 at 1500, For 57 doses [facility] Medication administered onsite Chlorpromazine hydrochloride 50 MG Oral Tablet chlorproMAZINE (THORAZINE) tablet 50 mg chlorproMAZINE (THORAZINE) tablet 50 mg 09/21/2020 10:00:00 PM E DT 50 mg Oral aborted 50 mg, Ora l, Nightly, First dose on Sun09/21/20 at 2200, For 30 days [facility] Medication administered onsite Ibuprofen 400 MG Oral Tablet ibuprofen (MOTRIN) tablet 400 mg ibuprofen (MOTRIN) tablet 400 mg 09/21/2020 09:30:00 PM EDT 400 mg Oral comp leted 400 mg, Oral, Once, On Sun09/21/20 at 2130, For 1 dose
Take with food.
[facility] Medication administered onsite Chlorpromazine hydrochloride 25 MG Oral Tablet chlorproMAZINE (THORAZINE) tablet 25 mg chlorproMAZINE (THORAZINE) tablet 25 mg 09/21/2020 03:00:00 PM E DT 25 mg Oral aborted 25 mg, Ora l, 2 Times Daily, First dose (after last modification) on Sun09/21/20 at 1500, For 30 doses [facility] Medication administered onsite Citalopram 20 MG Oral Tablet citalopram (CELEXA) table t 10 mg citalopram (CELEXA) tablet 10 mg 09/19/2020 09:00:00 AM EDT 10 mg Oral active 10 mg, Oral, Daily Standard, First dose on Sun09/19/20 at 0900, For 30 days [facility] Medication administered onsite Chlorpromazine hydrochloride 25 MG Oral Tablet chlorproMAZINE (THORAZINE) tablet 25 mg chlorproMAZINE (THORAZINE) tablet 25 mg 09/15/2020 12:15:00 PM E DT 25 mg Oral aborted 25 mg, Ora l, Three Times Daily Standard, First dose on Sun09/15/20 at 1215, For 30 days [facility] Medication administered onsite Nicotine 2 MG Oral Lozenge nicotine (NICORETTE) lozeng e 2 mg nicotine (NICORETTE) lozenge 2 mg 09/15/2020 10:22:02 AM EDT 2 mg Mouth/Th roat active 2 mg, Mouth/Throat, Every 2 hours PRN, Smoking cessation, Starting on Sun09/15/20 at 1022, For 30 days
Should not be chewed or swallowed; allow to dissolve slowly (~20-30 minutes)
[facility] Medication administered onsite gabapentin 400 MG Oral Capsule gabapentin (NEURONTIN) capsule 400 mg gabapentin (NEURONTIN) capsule 400 mg 09/14/2020 05:00:00 PM EDT 400 mg Oral aborted 400 mg, Oral, Three Times D aily Standard, Indications: substance use anxiety, First dose (after last modification) on Sun09/14/20 at 1700, For 84 doses [facility] Medication administered onsite Acetaminophen 325 MG [...] mg from all sources in 24 hours.
[facility] Medication administered onsite 24 HR Nicotine 0.875 MG/HR Transdermal P atch nicotine (NICODERM CQ) 21 MG/24HR 1 patch nicotine (NICODERM CQ) 21 MG/24HR 1 patch 09/13/2020 09:00:00 AM EDT 1 {patch} Transdermal aborted 1 patch, Transdermal, Administer over 24 Hours, Daily Standard, First dose on Sun09/13/20 at 0900, For 30 days [facility] Medication administered onsite Bisacodyl 10 MG Rectal Suppository bisacodyl (DULCOLAX ) suppository 10 mg bisacodyl (DULCOLAX) suppository 10 mg 09/13/2020 08:49:03 AM EDT 10 mg Rectal active 10 mg, Rectal, Every 72 hours PRN, Constipation, Starting on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 Diagn osis 03/11/2020 12:00:00 PM [facility] Z13.29 Encounter for screening for other suspec keven endocrine disorder ENCOUNTER FOR SCREENING FOR OTH SUSPECTE Diagnosis 03/01/2020 04:49:00 PM [facility] Z82.61 Family history of arthritis FAMILY HISTORY OF ARTHRITI S Diagnosis 03/01/2020 04:49:00 PM [facility] Z82.69 Family history of other dise ases of the musculoskeletal system and connective tissue FAMILY HISTORY OF DISEASES OF THE MS SYS Diagnosis 03/01/2020 04:49:00 PM [facility] Z13.220 Encounter for screening for lipoid disor ders ENCOUNTER FOR SCREENING FOR LIPOID DISORDERS Diagnosis 03/01/2020 04:49:00 PM [facility] R50.9 Fever, unspecified FEVER, UNSPECIFIED Diagnosis 05/2020 03:45:00 PM [facility] 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, in r emission OTHER PSYCHOACTIVE SUBSTANCE ABUSE, IN REMISSION Diagnosis 03/01/2020 03:45:00 PM [facility] G56.03 CARPAL TUNNEL SYNDROME, BILATERAL UPPER LIMBS CARPAL TUNNEL SYNDROME, BILATERAL UPPER LIMBS Diagnosis 03/01/2020 03:45:00 PM [facility] K21.9 Gastro-esophageal reflux disease without esophagitis GASTRO-ESOPHAGEAL REFLUX DISEASE WITHOUT ESOPHAGITIS Diagnosis 02/18/2020 10:00:00 AM [facility] F12.10 Cannabis abuse, uncomplicated CANNABIS ABUSE, UNCOMPLI CATED Diagnosis 12/24/2019 11:00:00 AM [facility] R13.12 Dysphagia, oropharyngeal phase DYSPHAGIA, OROPHARYNGEA L PHASE Diagnosis 12/24/2019 08:24:00 AM [facility] M54.2 Cervicalgia CERVICALGIA Diagnosis 12/24/2019 08:24:00 AM [facility] T50.914D POISONING BY MULTIPLE UNSP DRUG/MEDS/BIO L SUBST, U POISONING BY MULTIPLE UNSP DRUG/MEDS/BIOL SUBST, U Diagnosis 12/24/2019 08:24:00 AM [facility] F19.20 Other psychoactive substance dependence, uncomplicated OTHER PSYCHOACTIVE SUBSTANCE DEPENDENCE, UNCOMPLIC Diagnosis 12/05/2019 10:08:[address] [facility] R45.851 Suicidal ideations SUICIDAL IDEATIONS Diagnosis 10/2019 10:08:[address] [facility] G40.909 Epilepsy, unspecified, not intractable, without status epilepticus EPILEPSY, UNSP, NOT INTRACTABLE, WITHOUT STATUS EP Diagnosis 10/2019 10:08:[address] [facility] F32.2 Major depressive disorder, s rito episode, severe without psychotic features MAJOR DEPRESSV DISORD, SINGLE EPSD, SEV Diagnosis 12/05/2019 10:08:[address] [facility] F25.1 Schizoaffective disorder, depressive typ e SCHIZOAFFECTIVE DISORDER, DEPRESSIVE TYPE Diagnosis 12/05/2019 10:08:00 AM [facility] james Y92.[address] or not applicable UNSPECIFIED PLACE OR NOT APPLICABLE Diagnosis 12/04/2019 11:06:[address] [facility] X58.XXXA Exposure to other specified factors, ini tial encounter EXPOSURE TO OTHER SPECIFIED FACTORS, INITIAL ENCOU Diagnosis 12/04/2019 11:06:[address] [facility] T42.6X2A Poisoning by other antiepile ptic and sedative-hypnotic drugs, intentional self-harm, initial encounter POISN BY OTH ANTIEPLPTC AND SED-HYPNTC DRUGS, SLF- Diagnosis 12/04/2019 11:06:00 PM [facility] T40.902A Poisoning by unspecified psy chodysleptics [hallucinogens], intentional self-harm, initial encounter POISONING BY UNSP PSYCHODYSLEPTICS, SELF-HARM, INI Diagnosis 12/04/2019 11:06:[address] [facility] K21.9 Gastro-esophageal reflux disease without esophagitis GASTRO-ESOPHAGEAL REFLUX DISEASE WITHOUT ESOPHAGIT Diagnosis 12/04/2019 11:06:[address] [facility] F90.9 Attention-deficit hyperactivity disorder , unspecified type ATTENTION- DEFICIT HYPERACTIVITY DISORDER, UNSPECIF Diagnosis 12/04/2019 11:06:[address] [facility] F43.10 Post-traumatic stress disorder, unspecif ied POST-TRAUMATIC STRESS DISORDER, UNSPECIFIED Diagnosis 12/04/2019 [facility] F43.23 Adjustment disorder with mixed anxiety a nd depressed mood ADJUSTMENT DISORDER WITH MIXED ANXIETY AND DEPRESS Diagnosis 12/04/2019 11:06:[address] [facility] T42.4X2A Poisoning by benzodiazepines, intentiona l self-harm, initial encounter POISONING BY BENZODIAZEPINES, INTENTIONAL SELF-HARM, INIT Diagnosis 12/04/2019 11:06:[address] 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 T50.992A Poisoning by other drugs, me dicaments and biological substances, intentional self-harm, initial encounter POISONING BY OTH DRUG/MEDS/BIOL SUBST, SELF-HARM, Diagnosis 12/04/2019 04:21:00 PM [facility] R45.851 Suicidal ideations SUICIDAL IDEATIONS Diagnosis 09/2019 04:21:00 PM [facility] F1510 Other stimulant abuse, uncomplicated Other stimu lant abuse, uncomplicated Diagnosis 11/07/2019 12:19:00 AM [facility] X75293 Other psychoactive substance abuse with psychoactive substance-induced anxiety disorder Other psychoactive substance abuse with psychoactive substance- induced anxiety disorder Diagnosis 11/07/2019 12:19:00 AM EDT [facility] R110 Nausea Nausea Diagnosis 11/07/2019 12:19:00 AM ED T [facility] Z76.89 Persons encountering health services in other specified circumstances PERSONS ENCOUNTERING HEALTH SERVICES IN OTH CIRCUM Diagnosis 05/2019 09:06:00 AM EDT [facility] Z71.9 Counseling, unspecified COUNSELING, UNSPECIFIED Diagno sis 10/31/2019 09:06:00 AM EDT [facility] Z68.30 Body mass index (BMI) 30.0-30.9, adult B BOB MASS INDEX (BMI) 30.0-30.9, ADULT Diagnosis 10/31/2019 09:06:00 AM [facility] E66.9 Obesity, unspecified OBESITY, UNSPECIFIED Diagnosis 10/31/2019 09:06:00 AM EDT [facility] R56.9 Unspecified convulsions UNSPECIFIED CONVULSIONS Diagno sis 10/31/2019 09:06:00 AM EDT [facility] [id number] Seizure disorder Seizure Disorder Problem 11/12/2020 12 :00:00 AM EDT [place] ([facility]) [id number] Schizophrenia Schizophrenia Problem 11/12/2020 12:00:00 AM EDT [place] ([facility]) 31720399 Hyperthyroidism Hyperthyroidism Problem 11/12/2020 12:0 0:00 AM EDT [facility]) F20.9 [id number] Schizophrenia, unspecified type Problem 09/24/2020 12:00:00 AM EDT eCW1 ([facility] jimena) F19.10 Polysubstance abuse Polysubstance abuse Problem 0 03/11/2020 12:00:00 AM EST eCW1 ([facility] jimena) K14.6 [id number] Tongue sore Problem 03/01/2020 12:00:[address] eCW1 ([facility]) F19.11 [id number] History of drug abuse Problem 03/01/2020 12: 00:00 AM EST eCW1 ([facility]) F19.10 [id number] Substance abuse Problem 12/24/2019 12:00:00 AM EDT eCW1 ([facility]) 947805130 SNOMED CT Concept SNOMED CT Concept Problem 12/10 06:41:41 PM EDT [place] ([facility]) [id number] Fitting procedure Fitting Procedure Problem 12/10 06:41:41 PM EDT [place] ([facility]) 67911799 Depressive disorder Depressive Disorder Problem 1 06:41:41 PM EDT [place] ([facility]) F50.81 [id number] Binge eating disorder Problem 11/04/2019 12: 00:00 AM EDT eCW1 ([facility]) R13.12 29610195 Oropharyngeal dysphagia Problem 10/31/2019 1 2:00:00 AM EDT eCW1 ([facility]) G56.03 [id number] Carpal tunnel syndrome, bilateral Pr oblem 10/31/2019 12:00:00 AM EDT eCW1 ([facility] jimena) K21.9 717759054 Gastroesophageal ref lux disease, esophagitis presence not specified Problem 10/31/2019 12:00:00 AM EDT eCW1 ([facility]) F17.200 03535619 Tobacco dependence Problem 10/31/2019 12:00: 00 AM EDT eCW1 ([facility]) E66.9 [id number] Obesity (BMI 30.0-34.9) Problem 0 10/31/2019 12:00:00 AM EDT eCW1 ([facility] jimena) Z68.30 873693296 BMI 30.0-30.9,adult Problem 10/31/2019 12:00 :00 AM EDT eCW1 ([facility]) Surgeries/Procedures Procedure Description Date Indications Data Source(s) CVR Food Equipment Service Technician.Svc. Other 11/05/2020 12:00:00 AM EDT - 2020 12:00:00 AM EDT [facility] ([facility]) CVR Food Equipment Service Technician.Svc. Contraceptive 11/05/2020 12 :00:00 AM EDT - 11/05/2020 12:00:00 AM EDT [facility] ([facility]) CVR Med.Svc. Height/Weight 11/05/2020 12 :00:00 AM EDT - 11/05/2020 12:00:00 AM EDT [facility] ([facility]) CVR Blood Pressure 11/05/2020 12:00:00 AM EDT - 2020 12:00:00 AM EDT [facility] ([facility]) OFFICE VISIT, EST 11/05/2020 12:00:00 AM EDT - 2 021 12:00:00 AM EDT [facility] ([facility]) EKG 12-LEAD - CMAXX REPORT <td>EKG 12-LEAD - CMAXX REPORT</td><td></td><td>09/22/2020 8:46 PM EDT</td><td></td><td></td> 09/22/2020 08:46:20 PM [facility] EKG 12-LEAD - CMAXX REPORT <td>EKG 12-LEAD - CMAXX REPORT</td><td></td><td>09/22/2020 8:46 PM EDT</td><td></td><td></td> 09/22/2020 08:46:20 PM [facility] EKG 12-LEAD <td>EKG 12-LEAD</td><td>Rout ine</td><td>09/22/2020 8:46 PM EDT</td><td></td><td> </td> 09/22/2020 08:46:20 PM [facility] URNLS DIP STICK/TABLET REAGENT AUTO MICROSCOPY <td>URI NALYSIS WITH MICROSCOPIC</td><td>Routine</td><td>09/18/2020 3:48 PM EDT</td><td></td><td> </td> 09/18/2020 03:48:00 PM [facility] 25 HYDROXY INCLUDES FRACTIONS IF PERFORMED <td>VITAMIN D 25 HYDROXY, TOTAL</td><td>Routine</td><td>09/17/2020 7:10 AM EDT</td><td></td><td> </td> 09/17/2020 07:10:00 AM [facility] BLOOD COUNT COMPLETE AUTO&AUTO DIFRNTL WBC COUNT <td>C BC AND DIFFERENTIAL</td><td>Routine</td><td>09/17/2020 7:10 AM EDT</td><td></td><td> </td> 09/17/2020 07:10:00 AM [facility] THYROID STIMULATING HORMONE TSH <td>TSH</td><td>Routin e</td><td>09/17/2020 7:10 AM EDT</td><td></td><td> </td> 09/17/2020 07:10:00 AM [facility] HEMOGLOBIN GLYCOSYLATED A1C <td>HEMOGLOBIN A1C</td><td>Routine</td><td>09/17/2020 7:10 AM EDT</td><td></td><td> </td> 09/17/2020 07:10:00 AM [facility] LIPID PANEL <td>LIPID PANEL</td><td>Rout ine</td><td>09/17/2020 7:10 AM EDT</td><td></td><td> </td> 09/17/2020 07:10:00 AM [facility] COMPREHENSIVE METABOLIC PANEL <td>COMPREHENSIVE METABO LIC PANEL</td><td>Routine</td><td>09/17/2020 7:10 AM EDT</td><td></td><td> </td> 09/17/2020 07:10:00 AM [facility] IADNA NEISSERIA GONORRHOEAE AMPLIFIED PROBE TQ <td>AMP LIFIED GC AND CHLAMYDIA</td><td>Routine</td><td>09/12/2020 11:57 AM EDT</td><td></td><td> </td> 09/12/2020 11:57:00 AM [facility] URNLS DIP STICK/TABLET REAGENT AUTO MICROSCOPY <td>URI NALYSIS WITH MICROSCOPIC</td><td>Routine</td><td>09/12/2020 11:57 AM EDT</td><td></td><td> </td> 09/12/2020 11:57:00 AM [facility] CULTURE BCT ISOL&PRSMPTV ID ISOLATE EA URINE <td>URINE CULTURE</td><td>Routine</td><td>09/12/2020 11:57 AM EDT</td><td></td><td> </td> 09/12/2020 11:57:00 AM [facility] URNLS DIP STICK/TABLET REAGENT AUTO MICROSCOPY <td>URI NALYSIS WITH MICROSCOPIC</td><td>Routine</td><td>08/15/2020 6:54 PM EDT</td><td></td><td> </td> 08/15/2020 06:54:00 PM [facility] Psychological Tests, Neurobehavioral and Cognitive Status 12/06/2019 12:00:[address] [facility] Introduction of Electrolytic and Water B alance Substance into Peripheral Vein, Percutaneous Approach 12/04/2019 12:00:[address] [facility] Results ID Date Data Source [id number] 11/07/2020 04:47:00 AM EDT [facility] Name Value Range Interpretation Code Description Data [place] rce(s) Supporting Document(s) SARS coronavirus 2 RNA [Presence] in Res piratory specimen by MARK with probe detection NEGATIVE [facility] This lab was ordered by [facility] a nd reported by [facility]. ID Date Data Source [id number] 11/03/2020 11:35:00 AM EDT [facility] 1 OrderSheet [facility] Emergency Department [address] [place] [address] Phone #: ext- [phone] 11/03/2020 11:35 Patient: RBUNA LEE Sex: F [...] 14:44 Cally EDCEvonne Barros Tiffany ER M.D.; [id number] Acid STAT 14:14 11/03/2020 14:24 Evonne Bhatti [...] 25 mg M.DJayro;(NOW x1, HIGH 2 OrderSheet [facility] Emergency Department [address] [place] [address] Phone #: ext- [phone] 11/03/2020 11:35 Patient: [...] Davis RN (15:29 11/03/2020)][Electronically signed by Evonne Haegn M.D. (18:01 11/03/2020)][Electronically locked by Sayda Davis RN (15:29 11/03/2020)] Name Value Range Interpretation Code Description Data [place] rce(s) Supporting Document(s) ID Date Data Source [id number] 11/03/2020 11:35:00 AM EDT [facility] 1 Medication Reconciliation Report [facility] Emergency Department [address] [place] [address] Phone #: ext- [phone] 11/03/2020 11:35 Patient: [...] rce(s) Supporting Document(s) ID Date Data Source [id number] 11/03/2020 11:35:00 AM EDT [facility] 1 Medication Administration Record [facility] Emergency Department [address] [place] [address] Phone #: ext [phone] 11/03/2020 11:35 Patient: BRUNA LEE Sex: F : 1985 Age: 35yWeight: 81.6 kgHeight/Length: 61 inBMI: 34ALLERGIES: Amoxicillin, Bactrim, Certain antipsycotics, Methamphetamine HCl, Penicillins, Sulfur Date/Time Medication Administered Medication OrderedGiven ATIVAN [IM] (LORAZEPAM) Ativan IM 2 mg (HIGH ALERT15:16 11/03/2020 Dose: 2 mg IM MEDICATION)Sayda Davis RN Name Value Range Interpretation Code Description Data [place] rce(s) Supporting Document(s) ID Date Data Source [id number] 11/03/2020 11:35:00 AM EDT [facility] 1 General Instructions [facility] Emergency Department [address] [place] [address] Phone #: ext- [phone] 11/03/2020 11:35 Patient: [...] ADDITIONAL INFORMATIONViral Diarrhea (Adult) 2 General Instructions [facility] Emergency Department [address] [place] [address] Phone #: [phone]- [phone] 11/03/2020 11:35 Patient: BRUNA LEE Sex: F [...] replace what is lost. 3 General Instructions [facility] Emergency Department [address] [place] [address] Phone #: ext- [phone] 11/03/2020 11:35 Patient: [...] hands with soap and water or alcohol-based beverage manager to prevent the spread of infection. Wash [...] Keep uncooked meats away from cooked and qebdk-fz-vho foods.Medicines: You may use acetaminophen or NSAIDS [...] cramping, and pain worse. 4 General Instructions [facility] Emergency Department [address] [place] [address] Phone #: ext- [phone] 11/03/2020 11:35 [id number] Sex: F : 1985 Age: 35y Don't [...] to seek medical advice 5 General Instructions [facility] Emergency Department [address] [place] [address] Phone #: ext- [phone] 11/03/2020 11:35 Patient: [...] or as directed by your healthcare provider [address] if any of the following occur: Trouble breathing Confused Severe drowsiness or trouble awakening Fainting or loss of consciousness Rapid heart rate Seizure Stiff neck [phone] [employer] [place] [address]. All rights reserved. This information is not intended as asubstitute for professional medical care. Always follow your healthcare professional's instructions.Unknown Causes of Abdominal Pain (Female) 6 General Instructions [facility] Emergency Department [address] [place] [address] Phone #: ext- [phone] 11/03/2020 11:35 Patient: [...] for taking these medicines. 7 General Instructions [facility] Emergency Department [address] [place] [address] Phone #: ext- [phone] 11/03/2020 11:35 [id number] Sex: F : 1985 Age: 35yGeneral care [...] to improve in thenext 24 hours.Call 911Call [phone] if any of these occur: Trouble breathing Confusion Fainting or loss of consciousness Rapid heart rate 8 General Instructions [facility] Emergency Department [address] [place] [address] Phone #: ext- [phone] 11/03/2020 11:35 Patient: [...] or water and you are getting dehydrated [phone] [employer]. [address] [place] [address]. All rights reserved. This information is not [...] feel: Helpless Nervous Depressed 9 General Instructions [facility] Emergency Department [address] [place] [address] Phone #: ext- [phone] 11/03/2020 11:35 --- [...] (Avoid hassles, limit the 10 General Instructions [facility] Emergency Department [address] [place] [address] Phone #: ext- [phone] 11/03/2020 11:35 Patient: [...] andtemporary medicine to help you manage stress.Call [phone] [phone] if any of these happen: Trouble breathing Confusion Drowsiness or trouble wakening Fainting or loss of consciousness Rapid heart rate Seizure New chest pain that becomes more severe, lasts longer, or spreads into your shoulder, arm, neck, jaw, or backWhen to seek medical advice 11 General Instructions [facility] Emergency Department [address] [place] [address] Phone #: ext- [phone] 11/03/2020 11:35 Patient: BRUNA LEE Sex: F : 1985 Age: 35yCall your healthcare provider right away if any of these happen: Your symptoms get worse Severe headache not relieved by rest and mild pain reliever [phone] [employer]. [address] [place] [address]. All rights reserved. This information is not intended as asubstitute for professional medical care. Always follow your healthcare professional's instructions. You have been given the following additional information: Diarrhea, Viral (Adult) Abdominal Pain, Unknown Cause, (Female) Anxiety Reaction(Electronically signed by Evonne Hagen M.D. 11/03/2020 18:01) Name Value Range Interpretation Code Description Data [place] rce(s) Supporting Document(s) ID Date Data Source [id number] 11/03/2020 11:35:00 AM EDT [facility] 1 Clinical Report - Nurses [facility] Emergency Department [address] [place] [address] Phone #: ext- [phone] 11/03/2020 11:35 Patient: BRUNA LEE Sex: F : 1985 Age: 35yTRIAGEArrived by EMS. Historian: patient.Acuity: LEVEL 3.Chief Complaint: ABDOMINAL PAIN and DIARRHEA.Onset. (6 months ago). ( pt states she was supposed to go to methadone appointment today but herabdomen is been bothering for quite some time, she reports abdominal pain, n/v/d, sore throat and multipleissues).Treatment ELECTRICAL INTERN:Took Tylenol. (1030).EMS Treatment ELECTRICAL INTERN:EMS treatment verbally communicated and report reviewed. See report.SEPSIS SCREEN: SIRS SCREEN NEGATIVE. SEPSIS SCREEN NEGATIVE. No suspected or confirmedsigns of infection present.SHE COMA SCORE: 15- eyes open- spontaneous (4); best verbal response- oriented (5); bestmotor response- obeys commands (6). --11:57 11/03/20 Genrao Quiroz RN11:51 11/03/20. BP: 125/79. MAP: 94. [...] Quiroz RN. 2 Clinical Report - Nurses [facility] Emergency Department [address] [place] [address] Phone #: ext- [phone] 11/03/2020 11:35 Patient: [...] treatment room. --13:59 11/03/20 Genaro Quiroz RN.PHYSICAL [id number]:02 11/03/20. To room via wheelchair.GENERAL / NEURO [...] Davis RN. 3 Clinical Report - Nurses [facility] Emergency Department [address] [place] [address] Phone #: ext- [phone] 11/03/2020 11:35 Patient: BRUNA LEE Sex: F [...] F. Pain level now 08/05. --15:10 11/03/20 [place] yeast [employer], [facility] 15:25 11/03/20. Condition at departure: stable. No learning barriers present. Discharge instructions provided and reviewed with the patient. Patient verbalized understanding. Written instructions provided in Hungarian. The patient was discharged home. She left ambulatory and via private vehicle. Patient driving. --15:25 11/03/20 Sayda Davis RN.Locked/Released at 11/03/2020 15:29 by Sayda Davis RN Name Value Range Interpretation Code Description Data [place] rce(s) Supporting Document(s) ID Date Data Source [id number] 11/03/2020 11:35:00 AM EDT [facility] 1 Clinical Report - Physicians/Mid Levels [facility] Emergency Department [address] [place] [address] Phone #: ext- [phone] 11/03/2020 11:35 Patient: BRUNA LEE Sex: F [...] Disease. 2 Clinical Report - Physicians/Mid Levels [facility] Emergency Department [address] [place] [address] Phone #: ext- [phone] 11/03/2020 11:35 Patient: [...] results 3 Clinical Report - Physicians/Mid Levels [facility] Emergency Department [address] [place] [address] Phone #: ext- [phone] 11/03/2020 11:35 Patient: BRUNA LEE Sex: F [...] MORPH NOT INDICATEDCMP: (JENN: 11/03/2020 14:18) ( [facility] 11/03/[facility] 14:56) Final results Test Result Flag [...] Male GFR Interprentation 20-49 yrs >60 mL/min Nxqqyz03-56 yrs >56 mL/min Normal 60-69 yrs >49 mL/min Normal 70-79yrs>42 mL/min Normal 80 and above >35 mL/min Normal Female GFRInterpretation 20-39 yrs >60 mL/min Normal 40-49 yrs >58 mL/min 4 Clinical Report - Physicians/Mid Levels [facility] Emergency Department [address] [place] [address] Phone #: ext- [phone] 11/03/2020 11:35 Patient: BRUNA LEE Sex: F : 1985 Age: 35y Normal 50-59 yrs >51 mL/min Normal 60-69 yrs >45 mL/min Normal 70-79 yrs > 39 mL/min Normal 80 and above >32 mL/min Normal Lipase: (JENN: 11/03/2020 14:18) ( [facility] 11/03/2020 14:56) Final results Test Result Flag Units (Reference) LIPASE 10 L U/L (13 - 60) UA REFLEX TO UA CULTURE: (JENN: 11/03/2020 14:30) ( [facility] 11/03/2020 14:37) Final results Test Result Flag [...] Indicate Lactic Acid: (JENN: 11/03/2020 14:18) ( [facility] 11/03/2020 14:30) Final results Test Result Flag Units (Reference) LACTIC ACID 1.0 MMOL/L (0.2 - 2.2) Beta-HCG, Qual Seru m: (JENN: 11/03/2020 14:18) ( [facility] 11/03/2020 14:45) Final results Test Result Flag Units (Reference) HCG SERUM QUAL NEGATIVE (NORMAL: NEGAT HCG SERUM QL REENTER NEGATIVE (NORMAL: NEGAT { KIT LOT # [id number] ){ KIT EXP DATE 02.25.22 ){ PROCEDURAL [...] accurately reflects the information as submitted by [employer]. This report was requested by: Evonne Hagen Reference #: [id number] Clinical Report - Physicians/Mid Levels [facility] Emergency Department [address] [place] [address] Phone #: ext- [phone] 11/03/2020 11:35 Patient: BRUNA LEE Sex: F : 1985 Age: 35yOthers' PrescriptionsPatient Name: Bruna LeeBirth Date: 1985Address: [address] [address]Hau: FemaleRx Written Rx Dispensed Drug Quantity Days Supply Prescriber Name Prescriber Shiloh # Payment VtdvalOlapqawfm81/10/2021 05/05/2020 buprenorphine-naloxone 8-2 mg sl film 56 [...] Name: Bruna ComeBirth Date: 1985Address: [address] [place], [place] [address]Qsa: FemaleRx Written Rx Dispensed Drug Quantity Days Supply Prescriber Name Prescriber Shiloh # Payment JkbwiqSivrpjhuv42/07/2020 12/03/2019 buprenorphine-naloxone 8-2 mg sl film 56 28 Jose J Mao MD, [id number] [facility] #8011/04/2019 11/21/2019 vyvanse 50 mg capsule 15 15 Karolyn Van ([facility]) [id number] [facility]/04/2019 11/06/2019 clonazepam 0.5 mg tablet 7 7 Karolyn Van ([facility]) [id number] [facility]Patient Name: Bruna ComeBirth Date: 1985Address: [address] [place], [place] [address]Kct: FemaleRx Written Rx Dispensed Drug Quantity Days Supply Prescriber Name Prescriber Shiloh # Payment EesjanBhjgfqzbd65/07/2021 09/01/2020 buprenorphine- naloxone 8-2 mg sl film 28 14 Jose J Mao MD, [id number] [facility] #15008/18/2020 08/18/2020 buprenorphine-naloxone 8-2 mg sl film 28 14 Jose J Mao MD [id number] [facility] #15007/14/2020 07/21/2020 buprenorphine-naloxone 8-2 mg sl film 56 28 Jose J Mao MD [id number] icaid [facility] #15006/24/2020 06/24/2020 buprenorphine-naloxone 8-2 mg sl film 56 28 Jose J Mao MD, [id number] [facility] #15* - Drugs marked with an asterisk are compound drugs. If the compound drug is made up of more than onecontrolled substance, then each controlled substance will be a separate row in the table. 6 Clinical Report - Physicians/Mid Levels [facility] Emergency Department [address] [place] [address] Phone #: ext- [phone] 11/03/2020 11:35 Patient: BRUNA LEE Sex: F : 1985 Age: 35y 15:08 11/03/20. 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 Patient counseled in person regarding [...] if 7 Clinical Report - Physicians/Mid Levels [facility] Emergency Department [address] [place] [address] Phone #: ext- [phone] 11/03/2020 11:35 Patient: [...] Name Value Range Interpretation Code Description Data [facility](s) Supporting Document(s) ID Date Data Source [id number] 11/03/2020 02:36:00 PM EDT [facility] Name Value Range Interpretation Code Description Data [facility]) Supporting Document(s) UA REFLEX TO UA CULTURE [facility] URINALYSIS SOURCE R [facility] COLOR yellow NORMAL: Yellow [facility] CLARITY clear NORMAL: Clear [facility] Specific gravity of Urine by Test strip 1.010 1.001 - 1.030 [facility] pH 7 5 - 9 [facility] Glucose [Mass/volume] in Urine by Test strip NORM NORMAL: Negat merari [facility] Bilirubin.total [Presence] in Urine by Test strip NEG NORMAL: Negative [facility] Ketones [Presence] in Urine by Test strip NEG NORMAL: Negative [facility] Protein [Mass/volume] in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 ZOASSh6wKkBQMsXs99/PPZepBCBur5AlSCplSXu3PZxiRIYaM1NmANL7vX0oDMJ9HGnPPlEpTgYhUuO3 lbm [file] ICAgICAgICAgICAgICAgICAgICAgICAgICAgICAgICAgICAgICAgICAgICAgICAgICAgICAgICAgICAg ICAgDQogICAgICAgICAgICAgICAgICAgICAgICAgIC AgICAgICAgICAgICAgICAgICAgICAgICAgICAgICAgICAgICAgICAgICAgICAgICAgICAgICAgICAgIC AgICAgICAgICAgICAgDQogICAgICAgICAgICAgICAgICAgICAgICAgICAgICAgICAgICAgICAgICAgIC AgICAgICAgICAgICAgICAgICAgICAgICAgICAgICAg ICAgICAgICAgICAgICAgICAgICAgICAgDQogICAgICAgICAgICAgICAgICAgICAgICAgICAgICAgICAg ICAgICAgICAgICAgICAgICAgICAgICAgICAgICAgICAgICAgICAgICAgICAgICAgICAgICAgICAgICAg ICAgICAgDQogICAgICAgICAgICAgICAgICAgICAgIC AgICAgICAgICAgICAgICAgICAgICAgICAgICAgICAgICAgICAgICAgICAgICAgICAgICAgICAgICAgIC AgICAgICAgICAgICAgICAgDQogICAgICAgICAgICAgICAgICAgICAgICAgICAgICAgICAgICAgICAgIC AgICAgICAgICAgICAgICAgICAgICAgICAgICAgICAg ICAgICAgICAgICAgICAgICAgICAgICAgICAgDQogICAgICAgICAgICAgICAgICAgICAgICAgICAgICAg ICAgICAgICAgICAgICAgICAgICAgICAgICAgICAgICAgICAgICAgICAgICAgICAgICAgICAgICAgICAg ICAgICAgICAgDQogICAgICAgICAgICAgICAgICAgIC AgICAgICAgICAgICAgICAgICAgICAgICAgICAgICAgICAgICAgICAgICAgICAgICAgICAgICAgICAgIC AgICAgICAgICAgICAgICAgICAgDQogICAgICAgICAgICAgICAgICAgICAgICAgICAgICAgICAgICAgIC AgICAgICAgICAgICAgICAgICAgICAgICAgICAgICAg ICAgICAgICAgICAgICAgICAgICAgICAgICAgICAgDQogICAgICAgICAgICAgICAgICAgICAgICAgICAg ICAgICAgICAgICAgICAgICAgICAgICAgICAgICAgICAgICAgICAgICAgICAgICAgICAgICAgICAgICAg DXRfURZtYSFnLHJaGOh8E2rpNVUsYLDuHV2tKNk3El 8+ESeDCmNfDIG9ycMbcQ6UYT9qu9CsEAvdIDAxa4HhOZh9IY5VADHsEOikEO2XBNtjfi0NRIGvLFOruW VMy4bmFvDbUVN1INPmSuywRN3TJAMgU9pgpwVjRTPhKVJDZUkgBMKDZDvdWUTWVWIdOWQyWuYhGaIkZF NsYG7RDEDkN470pcFiSZ3CBf2KSmWkSI2doc9NYfZp EPTwQazBBng5ZYhlMY2ItCJafIIyBgFbBVPMLbJcZ5flx9EpJurpVPHXHSreWQ2Ed8KqnCXlZGm+Pg0K XP5jx2JlKNimKfYeCT9sxn5PUYkCBpMhN0LmdJovETodEJAhfLCTMKFxWEApMFhaMhV5AKCPINCufZX1 AgQ0BaAzSxSlQNh5QKTwUW5dXWyoWH7OPVU9MUswTL QzJKHnH5cBCmTcNIEpVuQtdVlyAI9VMtYdY9FxtkHhmZFdVsOoOTLKEv4+KKaqfcMjLnjDHlR4HJZpz0 SlCRs5XG5MXWRyAFzuLN0SXHVmrU3aGJviYT8MTlVpKDFeQLXOXgMtQ83esVNcXPc6M0CvQtFqFSCiLi lsZXMgPDwvTmFtZXMgWyBdDQogID4+ID4+TYxpZE6R OJitwqAgXKAdMk0WUCAoTDDfOK5sZNLsEEQdQ5I4uCmcKHBDBaUgP6hcqdzjBC6nNXMsS447lHommlJm QXP3MENzHn7JGVQwMWA4DHAyfZVrInHmUGCWJOgnNT0PfFHaGGW5aK6gLLclQLXqMUEpD8pNYkBtwCks BU20vLmmkrKxlRJrTMi+Ip2POE1ua8HsRTb5qiShGO opFZL6ZQyvHKYmMPBpFFOhLHQ1FHK5IXFJBmCgZXNhXWBiTFntZWVxQUDxqi4CRJKdQKTnDqv7GNHiHA CjZLPxJHxmQFOcSWA8ViK7PGEiEWAvDW5BAmNgAVEvMXTwZAtkIQGxZAJjdk1FJVUuRSUdOhJ7RRXfWR PsAVYvRBbjFPJzYNFpRsDxTSKrFQKyYM6LArUpEYJg JWUcNJPhEBHkOPHniu3OTMIkYFGfWwE6NWJlZFDeEYQuGXooAAXxGEF2IuEcWSCsBOIiAF2JLhMnTOVt AUr1IPBuOQXqVQHcbl8HWUIcADJpUvTpVqXfJPJiDOEkGBleWHZhTDMoHuNdQIIxBDObNJ5CUvZqPKNd GAV5PybtSCRhPTSyqd2EEPHwIGEuVnt9GCDhBEQvWH DyMRzfYQGaTHY1ERK2OYFrIAIkEF4SAcSwWPXtPHVoKqKbCWQgBHRcdu6HHODtTYJxTMCfMYFvSUPlQY UmAWtzAIVkBDK7JnjeFBPtOAEvQY9JUzHcEEGnAMD0ElTxWNTuRZRnsm1LYHVjGETxRdF9KmItEGOoQZ LrUEitBLFdGXT8KgScCOYmPPAqIK1SBnUiQAGfZQf5 GrMjCDRoSDOcro9VTCMqVXXmMWLbFaMgRHPyZGLwOXbpKSMeXCV2Caq9DGSbIFVmSC5JBvSfXXWrUxu4 IWAxJBXtGYVeai3PBLEhZBXhYNizYKRbAETtBXTzDEwhFFLzPPLfETV2DGQgBRGhDC4UWxFpTSRtYiJh OPBwRYZjAYCztq1SHLXoMJBxSAW4EROwHPAqQWApTF lrVELcUCErSYGcPJAjUDSbGX7DLwOhZHMkEyR9UOTsMBKuUIIwbb8XZDYaQRNnGlF5LuEfJXApOQCwFW heOLTtLFCfOrY6QFKpQZHoHZ3POdEoQEYmRrP2ZmefQXHqABXfzg7QJSQmWQPxCwQ9BVQmILEbAFKuSF enENQgFET1OVTsNIWgDQQzYS1CFpEvOLFtFoU6FZYn JUFhIKXvbq6FHTXzYMPbYBX1NENcYHBtFZWkYBm8apNrzVPpFZj5JL1GU2CvaiGzEbjBGa4Uu659TBE6 JDIrKf9SL3ptZr1pLMMnGDFVFz0JKVg0XDUdFyNgABT0DDIcCUtaDKTuLTc4FllxUDoeMSqgZQB+IDwx JzFfEfKoQhP4EFXfOVCjGmWmPQo7SoHkWmJ7DXB9IU 8eWSOTNi4+QDaotNLnuQaxDOJZQwR2Huf5FUqoDWGERd0G ID Date Data Source [id number] 09/13/2020 01:25:53 PM EDT [facility] Service Cmnt XXX-Imp : NoneMicroorganism XXX Cult : Knot Tying Operator Mediated Amplification(TMA) is NEGATIVE for Neisseria gonorrhoeae AND NEGATIVE for Chlamydia trachomatis. Name Value Range Interpretation Code Description Data [place] rce(s) Supporting Document(s) ID Date Data Source [id number] 09/13/2020 10:45:47 AM EDT [facility] Cmnt XXX-Imp : NoneMicroorganism XXX Cult : No growth 1 day Name Value Range Interpretation Code Description Data [place] rce(s) Supporting Document(s) ID Date Data Source [id number] [facility] Interpretation Code Description Data [place] rce(s) Supporting Document(s) Color of Urine [facility] Clarity of Urine [facility] Specific gravity of Urine by Refractometry automated 1.012 1.003 -1.030 [facility] pH of Urine by Automated test strip 7.0 5.0-8.0 [facility] Protein [Mass/volume] in Urine by Automated test strip [facility] Glucose [Mass/volume] in Urine by Automated test strip [facility] Ketones [Mass/volume] in Urine by Automated test strip [facility] Bilirubin.total [Presence] in Urine by Automated test strip Negative [facility] Hemoglobin [Presence] in Urine by Automated test strip Neg ative A [facility] Leukocyte esterase [Presence] in Urine by Automated test strip Negative [facility] Nitrite [Presence] in Urine by Automated test strip Negati ve [facility] Leukocytes [#/area] in Urine sediment by Automated count 0 -5 [facility] Erythrocytes [#/area] in Urine sediment by Automated count 7 /HPF 0-3 H [facility] ID Date Data Source [id number] 09/09/2020 04:46:00 PM EDT [facility] 1 OrderSheet [facility] Emergency Department [address] [place] [address] Phone #: ext- [phone] 09/09/2020 16:40 Patient: BRUNA LEE Sex: F [...] Norma MD; Bruna Farrar R.N. 2 OrderSheet [facility] Emergency Department [address] [place] [address] Phone #: ext- [phone] 09/09/2020 16:40 Patient: BRUNA LEE Sex: F : 1985 Age: 35y R.N.[Electronically signed by Bruna Farrar R.N. (22:38 09/09/2020)][Electronically signed by Zaynab Steven MD (07:09/11/2020)][Electronically locked by Bruna Farrar R.N. (22:38 09/09/2020)] Name Value Range Interpretation Code Description Data [place] rce(s) Supporting Document(s) ID Date Data Source [id number] 09/09/2020 04:46:00 PM EDT [facility] 1 Medication Reconciliation Report [facility] Emergency Department [address] [place] [address] Phone #: ext- [phone] 09/09/2020 16:40 Patient: [...] Home Medication information:patient 2 Medication Reconciliation Report [facility] Emergency Department [address] [place] [address] Phone #: ext- [phone] 09/09/2020 16:40 Patient: BRUNA LEE Sex: F : 1985 Age: 35yThe following Medications were given to the patient in the Emergency Department:None.The following Medications were prescribed to the patient:None. Name Value Range Interpretation Code Description Data [place] rce(s) Supporting Document(s) ID Date Data Source [id number] 09/09/2020 04:46:00 PM EDT [facility] 1 Medication Administration Record [facility] Emergency Department [address] [place] [address] Phone #: ext- [phone] 09/09/2020 16:40 Patient: BRUNA LEE Sex: F : 1985 Age: 35yWeight: 68.9 kgHeight/Length: 60 inBMI: 29.7ALLERGIES: Sulfur, Amoxicillin, Penicillins, Bactrim, Certain antipsycoticsDate/Time Medication Administered Medication Ordered Name Value Range Interpretation Code Description Data [place] rce(s) Supporting Document(s) ID Date Data Source [id number] 09/09/2020 04:46:00 PM EDT [facility] 1 General Instructions [facility] Emergency Department [address] [place] [address] Phone #: ext- [phone] 09/09/2020 16:40 Patient: [...] Severe anxiety Feeling unreal 2 General Instructions [facility] Emergency Department [address] [place] [address] Phone #: ext- [phone] 09/09/2020 16:40 Patient: [...] providers about all of the prescription medicines, [id number] medicines, and supplements you take. Certain supplements [...] operates a toll-free ADA information line at: [phone] (voice) or [phone] (TTY). They can help you locate a local office.Follow-up careFollow up with your doctor or therapist , or as advised.Jae cleveland [phone] 911 if you: 3 General Instructions [facility] Emergency Department [address] [place], [place] [id number] Phone #: ext- [phone] 09/09/2020 16:40 Patient: [...] yourself or others Worsening depression or anxiety [id number] [employer] [place] [address]. All rights reserved. This information is not intended as asubstitute for professional medical care. Always follow your healthcare professional's instructions. You have been given the following additional information: Schizophrenia, General(Electronically signed by Zaynab Steven MD 09/11/2020 07:17) 4 General Instructions [facility] Emergency Department [address] [place] [address] Phone #: ext- [phone] 09/09/2020 16:40 Patient: BRUNA LEE Sex: F : 1985 Age: 35y Name Value Range Interpretation Code Description Data [place] rce(s) Supporting Document(s) ID Date Data Source [id number] 09/09/2020 04:46:00 PM EDT [facility] 1 Clinical Report - Nurses [facility] Emergency Department [address] [place] [address] Phone #: ext- [phone] 09/09/2020 16:40 Patient: [...] Amado Chow 2 Clinical Report - Nurses [facility] Emergency Department [address] [place] [address] Phone #: ext- [phone] 09/09/2020 16:40 Patient: [...] factors identified. 3 Clinical Report - Nurses [facility] Emergency Department [address] [place] [address] Phone #: ext- [phone] 09/09/2020 16:40 Patient: [...] yell profanity 4 Clinical Report - Nurses [facility] Emergency Department [address] [place] [address] Phone #: ext- [phone] 09/09/2020 16:40 Patient: BRUNA LEE Sex: F [...] left the Emergency Department ambulatory. ( [facility] [place] [employer]). --22:35 09/09/20 Bruna Farrar R.N. 21:35 [...] rce(s) Supporting Document(s) ID Date Data Source [id number] 09/09/2020 04:46:00 PM EDT [facility] 1 Clinical Report - Physicians/Mid Levels [facility] Emergency Department [address] [place] [address] Phone #: ext- [phone] 09/09/2020 16:40 Patient: [...] Pain. 2 Clinical Report - Physicians/Mid Levels [facility] Emergency Department [address] [place] [address] Phone #: ext- [phone] 09/09/2020 16:40 Patient: BRUNA LEE Sex: F [...] (Reference) 3 Clinical Report - Physicians/Mid Levels [facility] Emergency Department [address] [place] [address] Phone #: ext- [phone] 09/09/2020 16:40 Patient: BRUNA LEE Sex: F [...] Male GFR Interprentation 20-49 yrs >60 mL/min Jkgpye23-60 yrs >56 mL/min Normal 60-69 yrs >49 mL/min Normal 70-79yrs>42 mL/min Normal 80 and above >35 mL/min Normal Female GFRInterpretation 20-39 yrs >60 mL/min Normal 40-49 yrs >58 mL/minNormal 50-59 yrs >51 mL/min Normal 60-69 yrs >45 mL/min Normal 4 Clinical Report - Physicians/Mid Levels [facility] Emergency Department [address] [place] [address] Phone #: ext- [phone] 09/09/2020 16:40 Patient: BRUNA LEE Sex: F : 1985 Age: 72y22-85 yrs >39 mL/min Normal 80 and above >32 mL/min NormalUrinalysis: (JENN: 09/09/2020 17:40) ( [facility] 18:04[facility] Final results Test Result Flag [...] Not IndicateDrug Screen-Urine: (JENN: 09/09/2020 17:40) ( [facility] 09/09/2020 18:19) Final results Test Result Flag [...] PRESUMPTIVE POSITIVE CONFIRMATION WILL BE PERFORMED AT [facility].ETOH: (JENN: 09/09/2020 17:40) ( [facility] 09/09/[facility] 18:29) Final results Test Result Flag Units (Reference) ALCOHOL <10.0 MG/DL ALCOHOL % 0.01 % (0.00 - 0.01) *FOR MEDICAL PURPOSES ONLY*Magnesium: (JENN: 09/09/2020 17:40) ( [facility] 09/09/[facility] 18:54) Final results Test Result Flag Units (Reference) MAGNESIUM 2.2 MG/DL (1.7 - 2.2)Acetaminophen Level: (JENN: 09/09/2020 17:40) ( [facility] 09/09/2020 18:29) Final results Test Result Flag Units (Reference) 5 Clinical Report - Physicians/Mid [facility] Emergency Department [address] [place] [address] Phone #: ext- [phone] 09/09/2020 16:40 Patient: RBUNA LEE Sex: F : 1985 Age: 35y ACETAMINOPHEN <5.0 UG/ML (0.0 - 30.0) Salicylate Level: (JENN: 09/09/2020 17:40) ( [facility] 09/09/2020 18:36) Final results Test Result Flag [...] 09/11/2020 07:17) 6Clinical Report - Physicians/Mid Levels [facility] Emergency Department [address] [place] [address] Phone #: ext- [phone] 09/09/2020 16:40 Patient: BRUNA LEE Sex: F : 1985 Age: 35y Name Value Range Interpretation Code Description Data [place] rce(s) Supporting Document(s) ID Date Data Source [id number] 09/11/2020 01:50:00 AM EDT [place] [id number] RESPIRATORY CARE REPORT ==== ---------NAME------- NUMBER SEX AGE ADMIT DISC. XRAY# F/C TYPECOME BRUNA [id number] F 35 09/09/20 09/09/20 [id number] [id number] E/R DATE OF : 1985 M/R# [id number] #: [phone] [place]-05 LOCATION: EMERGENCY DEPT [facility] [id number] [facility] TE:09/10/20 01:43 T [id number] PHYSICIAN: AUTUMN ZENG Name Value Range Interpretation Code Description Data [place] rce(s) Supporting Document(s) ID Date Data Source [id number] 09/10/2020 06:29:[address] [facility] Name Value Range Interpretation Code Description Data [place] rce(s) Supporting Document(s) SARS coronavirus 2 RNA [Presence] in Res piratory specimen by MARK with probe detection NEGATIVE [facility] This lab was ordered by [facility] a nd reported by [facility]. ID Date Data Source [id number] 09/09/2020 06:53:00 PM EDT [facility] Name Value Range Interpretation Code Description Data [place] rce(s) Supporting Document(s) Magnesium [Mass/volume] in Serum or Plasma 2.2 MG/DL 1.7 - 2.2 [facility] ID Date Data Source [id number] 09/09/2020 06:52:00 PM EDT [facility] Name Value Range Interpretation Code Description Data [place] rce(s) Supporting Document(s) COMPREHENSIVE METABOLIC PANEL [facility] COMPREHENSIVE METABOLIC PANEL Sodium [Moles/volume] in Serum or Plasma 137 mEq/L 134 - 153 [facility] Potassium [Moles/volume] in Serum or Plasma 4.0 mEq/L 3.6 - 5.0 [facility] Chloride [Moles/volume] in Serum or Plasma 99 mEq/L 98 - 107 [facility] Carbon dioxide, total [Moles/volume] in Serum or Plasma 27 MEQ/L 22 - 30 [facility] Glucose [Mass/volume] in Serum or Plasma 103 MG/DL 70 - 99 H [facility] BUN 11 MG/DL 7 - 21 [facility] al Creatinine [Mass/volume] in Serum or Plasma 0.7 MG/DL 0.7 - 1.5 [facility] BUN/CREAT 16 8 - 27 [facility] Protein [Mass/volume] in Serum or Plasma 7.1 G/DL 6.3 - 8.2 [facility] Albumin [Mass/volume] in Serum or Plasma 4.6 G/DL 3.9 - 5.0 [facility] Globulin [Mass/volume] in Serum by calculation 2.5 GM/DL 2.4 - 3.2 [facility] A/G RATIO 1.8 0.8 - 2.0 [facility] Calcium [Mass/volume] in Serum or Plasma 9.8 MG/DL 8.4 - 10.2 [facility] Bilirubin.total [Mass/volume] in Serum or Plasma <0.7 MG/DL 0.2 - 1.3 [facility] Alkaline phosphatase [Enzymatic activity/volume] in Serum or Plasma 68 U/L 38 - 126 [facility] Aspartate aminotransferase [Enzymatic activity/volume] in Serum or Plasma 22 U/L 5 - 40 [facility] Alanine aminotransferase [Enzymatic activity/volume] in Seru m or Plasma 16 U/L 7 - 56 [facility] Anion gap 3 in Serum or Plasma 11.0 mmol/L 8.0 - 16.0 [facility] AGE 35 yrs [facility] al NON-AA GFR >60 mL/min [facility] ital AFR AMER GFR >60 mL/min [facility] Male GFR In terprentation [...] >32 mL/min Normal ID Date Data Source [id number] 09/09/2020 06:36:00 PM EDT [facility] Name Value Range Interpretation Code Description Data [place] rce(s) Supporting Document(s) SALICYLATE <0.3 mg/dL 2.0 - 20.0 L [facility] ID Date Data Source [id number] 09/09/2020 06:29:00 PM EDT [facility] Name Value Range Interpretation Code Description Data [place] rce(s) Supporting Document(s) Acetaminophen [Presence] in Urine <5.0 UG/ML 0.0 - 30.0 [facility] ID Date Data Source [id number] 09/09/2020 06:29:00 PM EDT [facility] Name Value Range Interpretation Code Description Data [place] rce(s) Supporting Document(s) Ethanol [Moles/volume] in Blood <10.0 MG/DL [facility] ALCOHOL % 0.01 % 0.00 - 0.01 [facility] *FOR MEDICAL PURPOSES ONLY * ID Date Data Source [id number] 09/09/2020 06:18:00 PM EDT [facility] Name Value Range Interpretation Code Description Data [place] rce(s) Supporting Document(s) DRUG SCREEN URINE [facility] URINE DRUG SCREEN Amphetamine [Presence] in Urine by Screen method NEGATIVE NORMAL: N EGATIVE [facility] BARBITURATES NEGATIVE NORMAL: NEGATIVE [facility] BENZO NEGATIVE NORMAL: NEGATIVE [facility] COCAINE NEGATIVE NORMAL: NEGATIVE [facility] Tetrahydrocannabinol [Presence] in Urine NEGATIVE NORMAL: NEGATIVE [facility] OPIATES NEGATIVE NORMAL: NEGATIVE [facility] Phencyclidine [Presence] in Urine by Screen method NEGATIVE NOR MAL: NEGATIVE [facility] \\BLDo\\URINE DRUG SCR EEN INTERPRETATION\\BLDx\\ THE CUTOFFF LEVELS FOR DETECTION ARE FOLLOWS: AMPHETAMINES 1000 ng/ml BARBITUARATES 200 ng/ml BENZODIAZEPINES 100 ng/ml THC 50 ng/ml PHENCYCLIDINE 25 ng/ml OPIATES 300 ng/ml COCAINE 300 ng/ml ALL POSITIVES ARE CONSIDERED PRESUMPTIVE POSITIVE CONFIRMATION WILL BE PERFORMED AT PHYSICIAN REQUEST. ID Date Data Source [id number] 09/09/2020 06:04:00 PM EDT [facility] Name Value Range Interpretation Code Description Data [place] rce(s) Supporting Document(s) CBC W/AUTOMATED DIFF [facility] COMPLETE BLOOD COUNT Leukocytes [#/volume] in Blood by Automated count 9.6 10^3/uL 4.2 - 1 1.0 [facility] Erythrocytes [#/volume] in Blood by Automated count 4.34 10^6/uL 4. 20 - 5.40 [facility] Hemoglobin [Mass/volume] in Blood 12.7 g/dL 12.0 - 16.0 [facility] Hematocrit [Volume Fraction] of Blood by Automated count 38.1 % 3 7.0 - 47.0 [facility] Erythrocyte mean corpuscular volume [Entitic volume] by Auto mated count 87.8 fL 81.0 - 101 [facility] Erythrocyte mean corpuscular hemoglobin [Entitic mass] by Automated count 29.3 pg 27.0 - 34.0 [facility] Erythrocyte mean corpuscular hemoglobin concentration [Mass/volume] by Automated count 33.3 g/dL 31.0 - 36.0 [facility] Erythrocyte distribution width [Ratio] by Automated count 13.5 % 11.5 - 14.5 [facility] Platelets [#/volume] in Blood by Automated count 357 10^3/uL 150 - 45 0 [facility] Platelet mean volume [Entitic volume] in Blood by Automated count 9.6 fL 7.4 - 10.4 [facility] Neutrophils/100 leukocytes in Blood by Automated count 50.9 % 37. 0 - 80.0 [facility] Lymphocytes/100 leukocytes in Blood by Manual count 39.4 % 25.0 - 40.0 [facility] Monocytes/100 leukocytes in Blood by Automated count 7.5 % 3.0 - 8.0 [facility] Eosinophils/100 leukocytes in Blood by Automated count 1.1 % 0.0 - 7.0 [facility] Basophils/100 leukocytes in Blood by Automated count 0.6 % 0.0 - 2.5 [facility] %IG 0.5 % 0.0 - 0.0 [facility] %NRBC 0.0 % 0.0 - 0.0 [facility] al Neutrophils [#/volume] in Blood by Automated count 4.86 10^3/uL 2.00 - 6.90 [facility] Lymphocytes [#/volume] in Blood by Automated count 3.77 10^3/uL 0.60 - 3.40 H [facility] Monocytes [#/volume] in Blood by Automated count 0.72 10^3/uL 0.00 - 0.90 [facility] Eosinophils [#/volume] in Blood by Automated count 0.11 10^3/uL 0.00 - 0.70 [facility] Basophils [#/volume] in Blood by Automated count 0.06 10^3/uL 0.00 - 0.20 [facility] #IG 0.05 10^3/uL 0.00 - 0.10 [facility] #NRBC 0.00 10^3/uL 0.00 - 0.00 [facility] ospital MANUAL DIFF NOT INDICATED [facility] RBC MORPH NOT INDICATED [facility] spital ID Date Data Source [id number] 09/09/2020 06:04:00 PM EDT [facility] Name Value Range Interpretation Code Description Data [place] rce(s) Supporting Document(s) [facility] SOURCE R [facility] COLOR yellow NORMAL: Yellow [facility] ospital CLARITY clear NORMAL: Clear [facility] spital Specific gravity of Urine by Test strip 1.010 1.001 - 1.030 [facility] pH 7 5 - 9 [facility] Glucose [Mass/volume] in Urine by Test strip NORM NORMAL: Negat [facility] Bilirubin.total [Presence] in Urine by Test strip NEG NORMAL: Negative [facility] Ketones [Presence] in Urine by Test strip NEG NORMAL: Negative [facility] Protein [Mass/volume] in Urine by Test strip NEG NORMAL: Negat [facility] Nitrite [Presence] in Urine by Test strip NEG NORMAL: Negative [facility] BLOOD NEG NORMAL: Negative [facility] LEUK EST NEG NORMAL: Negative [facility] Urobilinogen [Mass/volume] in Urine by Test strip NOR less kenna n 1.0 mg/dL [facility] MICROSCOPIC Not Indicate [facility] ID Date Data Source [id number] 08/27/2020 04:17:02 PM EDT [facility] Name Value Range Interpretation Code Description Data [place] rce(s) Supporting Document(s) Discharge Summary [facility] QTJTUn0gCuYWWaAn46/YJNgkEUFhf9TdATtrKAg6LVxxALNyN2ZvWGK1aM8kABB8OLlDDcIdGbWzYcSr lbm FtGqmNZmKtNOXtQemGVxDpMQpiJswwiKApVH5BbZI9PVVmM39vXXGxWGNmQ4SpBXZ1ZKH+Vp3BSSQboD UgOJ9AJmqJ6O1Rm9vEWk4unf5UZ1YRyhKLvvIXyUyEuknFLbaY0pMN663QTJBOdmUGNplt/Olu8Ub71D gmLwG2QbcyOjzox03xwMObac0+EsvwUmbTbE83L16X itlG/R7otx0Oib7f9Ib4VUeEYPqIS6+gPlrmp1/0dajR2brQDCAYnpomLt+1hXfpaKZ2//D9sbI5StBL g2HBzOKvocc9zsWExzU3zVyb1Jjp+q7oANRb14ZaHkaXGz4Zc1wtKx1PjjTtLZvTgowuVwYudlNc33Ex A8g0YuP6YesgkKMbZr5daIVc6BWSZiHil8temBfh6x EcBZ8lLO1AhmeeIwhYOxkN+xBt2vxYBuQXF7inAcULboaQ11gkOESbnBm0v+RJ7YQQ4PRC+kKM88DQvY eNJ3DQ7MpmVWixToDC7ijucyyhHY+k6Wc7RdNI1sAgh+BFmUrVicxqZxUrzuuEt0VAdAhb7NJM2Z7gu+ n6iSj2ldBZ2buY1ae5u5pTaHbaG80a2v4L6+2NodF8 tqgMOvugyHu47h9F/HagvgeLKyfIQRM6QhQOyhtOa11q+hA3ffEwto9m8XTljP6M2iyitbwoU05th03p NhGjG/lxrhOAw5NIacMi+GyZiVUSLZsWbLqwacAmUxZ/HOZZwHt9PYc8MVjwexGziXsjJfz1irgjGLxv nnpW3SyhrKsgfdF+XVjyB+kgCCuwgKkFiWOwe95Qz9 0QV9PbvBDw4OILHbI9/KJ5XVxtKyhelTJG7IOTgTU/2/ae/Y6S/x2FHzRBP8tI+EJMY/15n8l2fxU4n3 wzaUhT/h6h5mkzo6UTdMMBRdrVFkoW7A3NuU0SYKGMufatSWuOPOeBfCclNjHvrswrzZGhxMqVOX+Anc TzzEZ2IQYO5gw/fBEhHPFADCEQQQMMOOQ1rjBEnWY2 [file] AgICAgICAgICAgICAgICAgICAgICAgICAgICAgICAg ICAgICAgICAgICAgICAgICAgICAgICAgICANCiAgICAgICAgICAgICAgICAgICAgICAgICAgICAgICAg ICAgICAgICAgICAgICAgICAgICAgICAgICAgICAgICAgICAgICAgICAgICAgICAgICAgICAgICAgICAg ICAgICAgICANCiAgICAgICAgICAgICAgICAgICAgIC AgICAgICAgICAgICAgICAgICAgICAgICAgICAgICAgICAgICAgICAgICAgICAgICAgICAgICAgICAgIC AgICAgICAgICAgICAgICAgICANCiAgICAgICAgICAgICAgICAgICAgICAgICAgICAgICAgICAgICAgIC AgICAgICAgICAgICAgICAgICAgICAgICAgICAgICAg ICAgICAgICAgICAgICAgICAgICAgICAgICAgICANCiAgICAgICAgICAgICAgICAgICAgICAgICAgICAg ICAgICAgICAgICAgICAgICAgICAgICAgICAgICAgICAgICAgICAgICAgICAgICAgICAgICAgICAgICAg ICAgICAgICAgICANCiAgICAgICAgICAgICAgICAgIC AgICAgICAgICAgICAgICAgICAgICAgICAgICAgICAgICAgICAgICAgICAgICAgICAgICAgICAgICAgIC AgICAgICAgICAgICAgICAgICAgICANCiAgICAgICAgICAgICAgICAgICAgICAgICAgICAgICAgICAgIC AgICAgICAgICAgICAgICAgICAgICAgICAgICAgICAg ICAgICAgICAgICAgICAgICAgICAgICAgICAgICAgICANCiAgICAgICAgICAgICAgICAgICAgICAgICAg ICAgICAgICAgICAgICAgICAgICAgICAgICAgICAgICAgICAgICAgICAgICAgICAgICAgICAgICAgICAg ICAgICAgICAgICAgICANCiAgICAgICAgICAgICAgIC AgICAgICAgICAgICAgICAgICAgICAgICAgICAgICAgICAgICAgICAgICAgICAgICAgICAgICAgICAgIC AgICAgICAgICAgICAgICAgICAgICAgICANCiAgICAgICAgICAgICAgICAgICAgICAgICAgICAgICAgIC AgICAgICAgICAgICAgICAgICAgICAgICAgICAgICAg ICAgICAgICAgICAgICAgICAgICAgICAgICAgICAgICAgICANCjw/jSPbH9swyLYestN3R7wzYl5UKq2E IB4ge1MaPTSgNThonbToGajLEfSzUKKmKneLXta2INbmAS3BwSPuM1CiK9ZsEOjaWR3PYXDbQKVybLVb VTIvPDDyDzS0CFAxCLovAL8PaQDuWMlzAHEyUCUqWq JnXGNaWYSrCFXwXXAtCVSBXSAoCCAjEhWgRTFvPKNqMIyjKUUOSIC5FTLxLiJrNVUcQNQtApYdEWXUDO 8GEgYoM9CjiP10VPIsXTc+Ne5ULD2um1FoJKq8PvVwUG1rcd8USSxOWjUzY1BtkzY7SCPwGMPuOo7CEN VsNMFjeMC8PtOrERHYThPfX6StsV36PEFHQm0+DQpl xcRaSwxIUpCcDHYim4YtRPz7TL6CKZHxDTr0aLKfMPtjS8iaqyaoEHW7xB0mfvaiJredXTRwzTydTQja QD6dTD2TSRE6HTxeXw7vIMFpUBYoObO9STYGIT7HGBJyIZGfnXXpPGOaSFJILN4ZKAhdFRP1AYUunuCv sRVjLDpfTU2YQBPkjpHuFtXxWQBYQOi+Pv1JZJ6qz8 BqAVs9RRHdEJ2wov9KYXeMZhOqH9Q8pZMrT3O9GAddIm1HIHQuYYQnOrZmOZAUICjuZI9APO3ryaX5GX 5VbACaKCBgXKRldDBpQWd8A53weKGkEYzrZT5DGMV+Luz+Tl9EKPSkROMcYZHzRfGcGPKRWnOcB0RcD3 SEo0JnM5VrZM50nQyazmOuGFxhHC7UOM2uLKGzKIQH VZ8IgPNrpO0owvY4TlNwWUZVEhVvC93jiEMdWLRmPTFwCQHbHa1JNLEtU8ArptKfrPbwapSaBXFvLTPV DY1MJFvuhdWjqMRxaKaiTE06mYmvRB5NOh1HFxTtQL5xhl9WjSIdBr6TZPT1XH3LUHPiRTWtSPDhWDX6 YHTyUkMzQIbcTCHwKUXdLBX0OMJoPKPuVR5MHqRmEY VvEYK7HHeaOGFmRRRwyu0JOSSeDRX7OZnmOCQwJPHnEJNoEVtlKSMjNDKxHZZ8OATvRZTeIT6XLbUhCI ObBBLaOkqbGCFzAYBrqc6FASSaSOVjMEH9BpDbRHPwNEXeHUjlADYeBED5SOB0BWRaWPEbJV5FVyEcZV RkJLrzDfxeZKWhAOFjbg3EKEZqOPSyTNOkZgNuUILy USAbCCumKMRsPBGkKsM4EKEvLQTyZJ6IGtJvDBOwYCF9RizzMNJyYGPeqp7XMEGxXPNiMNE7SFHxNSYj LHMbKYsrALCwGGJ4UyI7HOIhIFAiJX9BPrLzMMEyAWt2POKrRYHmZMKzwz7SIPPmSABfNyi8LuMdGJUk WGJyKUgzEWFzZYWqZWpbAVFfVCBnSW7PLxGpKGOxRe D9HqXrVGRqVJYbpa2ECLRnIIDvVnF4LRYlNIRnYDNnACluFKEtKCWdYEj5QJCoPVGbAL1QGdBkCOQgIm OlLEShPGEgZMExku0SXPYgJMGlKfZmKWAhVKXfOUAsURfkBJAqNAQwChH3LXOsHAOsKH8UHjUmGCVpBf T2SCCoGZAsPXAhoh0KQKEmDYIlEnl5PsMgZGGbAUCo YKvbTTTzQVR7FBU3TVUcMNGpBW9SThCxTRRvUlluUKHoZQArCWZmom3ANOMtCTUpOBQgWeLaQPEwREXi UKofSGPcRRL7Jgr7OIGsNTKbHJ5PJwShRPDnQts1TXirNLGpFRDegk8FTVQfRLUhHUG1PiJgFNWvCHTw EXahXRUpGDLbBwB7JNDaODMyMO6WHaNsVDRqAAE4Oc zaIAOzGMDnfh5LUKUyKNN2JWDcNEFfIREvHIRcPUybFOSeGBTlRLm3QYVsVPLiRH8PRnRdMCGfGOUhVL CeZBTjKDUblo0LSIOvGJY9SsD8JCCwHMOxYSDzONciONOeFHMxJyE6VUNsNYYeVX3VOfRsUNAeBQS0Iy kdERTbFCSttk4WPWSmAIN5PblwEZAvBYYfSXIuGXvk WSWtLKU5NRK5SSTzHXCqCP1LLeLrDIBpZCL1ViPuMYFtOKPtat2UHISuIKK0NOAfUDKbJJTyJHLvYCvh NJPjBOH0KCltAGQyMURkJH6BZzOhADBhZDYpIONjUYJqLFQkmt1HNDViSRE0Vql1FORnBHAoIDEmCTkr NCIhUWU9YXIuZYIaLFAvXW2TEcMzMWCwSKdaCbFfUQ TaRCEhrd1NSFBcXNH2NVS2VYBdQTDnCAFtHAnpHKAzVKU9BYl2QCMfRLQuQG3IFnRqBJIuGlMzXYtdPD BuUGSqiv7JOYRnTHT0XSBhPhWtQLSxZCCpMQziUUWsAKxiJRr2DWUfDBYhLR2VAcLdGPQvEYH5OritRD VaTHTprt1IYNGtPOO8WqJ2GqVoNZEwVFVoFMizDUEz LTmmErrgFIKgUKElMN2ENxRiWVKvAHP3DdMaCZVtZEYmbs9RZCKyPBK9GtP4ZlWqNCGcVBGrGApzCLPj ELivGtI6SLHhNTQbNE8AUsXtPUSvRXQ1MSTwWDWnLGZcnp4VHRNeXBI4Ptc6IYRyHDVnUSJiVUleQNAl MCy4FTr8LQBaZSDxWD3LGbZdAFRqCCM9EByyXPVkQH Bsjb5ZOVDcAUQ7DoZ3OSZsKMLhUCKbFAgcCKAfANq3HgG3HWKqYFXoOJ7JKzYoBHipOZDXGop2QMixW8 m0SED1XZ1JU6Qwq1XmWgIuVGCOVDneFJ2sedPvGCHoSe7KJ7iKNsgmUHQ5AmRzZBmiQzA3KmokQtApD9 XwTyRxPORqWgM4Kn7yHAOdLgG0ORN3DgVpJABiOOSc IDI6KTVeETUdFKCjJtaxXcTkQF8TMk7YUmR5NNA5tZQwVr4IFSB5QJPSKhQvGI4KTZp= ID Date Data Source [id number] 08/26/2020 04:11:50 PM EDT [facility] Name Value Range Interpretation Code Description Data [place] e(s) Supporting Document(s) History and Physical [facility] DTQMIf5wZmPRAmSl74/LPFstOUPes9HxAVwqDPv7MXqoLAExK3BjUXJ8zC1lVTC3RQjZFuUyUsAnDuTk lbm [file] AgICAgICAgICAgICAgICAgICAgICAgICAgICAgICAg ICAgICAgICAgICAgICAgICAgICAgICANCiAgICAgICAgICAgICAgICAgICAgICAgICAgICAgICAgICAg ICAgICAgICAgICAgICAgICAgICAgICAgICAgICAgICAgICAgICAgICAgICAgICAgICAgICAgICAgICAg ICAgICANCiAgICAgICAgICAgICAgICAgICAgICAgIC AgICAgICAgICAgICAgICAgICAgICAgICAgICAgICAgICAgICAgICAgICAgICAgICAgICAgICAgICAgIC AgICAgICAgICAgICAgICANCiAgICAgICAgICAgICAgICAgICAgICAgICAgICAgICAgICAgICAgICAgIC AgICAgICAgICAgICAgICAgICAgICAgICAgICAgICAg ICAgICAgICAgICAgICAgICAgICAgICAgICANCiAgICAgICAgICAgICAgICAgICAgICAgICAgICAgICAg ICAgICAgICAgICAgICAgICAgICAgICAgICAgICAgICAgICAgICAgICAgICAgICAgICAgICAgICAgICAg ICAgICAgICANCiAgICAgICAgICAgICAgICAgICAgIC AgICAgICAgICAgICAgICAgICAgICAgICAgICAgICAgICAgICAgICAgICAgICAgICAgICAgICAgICAgIC AgICAgICAgICAgICAgICAgICANCiAgICAgICAgICAgICAgICAgICAgICAgICAgICAgICAgICAgICAgIC AgICAgICAgICAgICAgICAgICAgICAgICAgICAgICAg ICAgICAgICAgICAgICAgICAgICAgICAgICAgICANCiAgICAgICAgICAgICAgICAgICAgICAgICAgICAg ICAgICAgICAgICAgICAgICAgICAgICAgICAgICAgICAgICAgICAgICAgICAgICAgICAgICAgICAgICAg ICAgICAgICAgICANCiAgICAgICAgICAgICAgICAgIC AgICAgICAgICAgICAgICAgICAgICAgICAgICAgICAgICAgICAgICAgICAgICAgICAgICAgICAgICAgIC AgICAgICAgICAgICAgICAgICAgICANCiAgICAgICAgICAgICAgICAgICAgICAgICAgICAgICAgICAgIC AgICAgICAgICAgICAgICAgICAgICAgICAgICAgICAg ICAgICAgICAgICAgICAgICAgICAgICAgICAgICAgICANCjw/mANjL1koiONrinW7X0pcXy8DQz4RXI2s u0SkZEShPKzgitOoYgcXBnMsDQUiHtbPQkv3URewEX6YrMVeR5YiY2HoDZpzHS5XNLMmYUFyeBGjETFs LSPpSdS6QAAnYLtmWZ0LoYFpMZbmBWFsZYRkNpVhTN GbRQTzWHCbAEWaVYBZTBScXRKkKiJrZBTrDDGvVEvjVZCUIB8DPsCfS4BraB02JAcMPe1+DQplbmRvYm tXIoGmVWTyz2OyPSa3NG0JCQJpRrhxx6FlIIXxMTFEDAaxLV3DFDZ4XORsQPNrTz9MLOQwH432hvNlAK 9AWi5UDnFgXY6oue1WHKJcYEEqPdqXRxq1EXlwOW9Q fPYmAZhSEiSvYczgKCDgbSjxPOdjSV0yWM4DGNH4FEstRY9iIYBlZNMfYzH6QSTJDQ5AGWOdIVSgkCKq HNJgBAKNSM3HOLvyCTW6KILcnmKoeLXsSVblZU4COUHvloYyYZBqTVUMJOw+Kt3GQV2ry8LaMNv9XdFs WO7hqv2DSRnKWdPdF3K9mQRoI0C2QAdfYb7KSHAkSI ScZGzgCAEHJGopFY4CUI9zowP8QU6OiRMcKXLdQBDisYGeDHj3N64ubVBzGSlhMB8YRZY+Luz+Pg0KIC DoDYIgTHZxOeCjMQZSKwEgT1SwL6NZa6UbQ4ZgDZ36nGngbpMcXCapHA2SNY0rFYXpSELWDJ6EgDVjbV 7magX1BIYxKBDIOsMeD59qfTXzJRVhFGSxRJOhOb3M XOUtS2CnmoMijFchimNmQJYcBMIKIN5UPDkbvuJzvDPduIfaMP23qYpmDU5PQg0VCbDuOI8bgk7JiAGs Ij7GPFR7ZL7CPBGlAMMqUCNsESZ8XEAhBfKfSLumZFJjYWJdXSC2LZWiXRXfNM0VWpXeGNVwFXW7HGxv VQJeVTJisp2QKGUnLPG1EfZhXDTqWJCrDIFkMKzoLZ EePGKlQHK2PDWlXMZaZN3YKjSuAPQmVCZ6FSHgYREpNTVeex2VZMXaBHPzXQP3DTJiCWChHCIzSYkaAC QoDPZ7YRx2TTMpUKHgRX8ZHuXnDXMfKFf8DYYnTORhYIFfwo9TNPXsVQJuRVmiFHWcLEPeYBMnOSnpLG IxQJMpIKB2LYQlXEWlWR9TBxIuTDZtBHKxTVsaTMUb IWShtc8POIXaNMYqPFN3CZQyWHFwHIUzSPboRKMyOLQ9EUR3ROHiXQVkXK9WDjTtLLTlOEajHSEpJUEv QAQusk1THLVvRXBcSqNfZwWfBQSiAZKqSHcoBESpITCgBbPbIFBpHEDmIQ7YJaHcIOYzLsY7GqAsEUYw CLXsij1TAXZjRXJwUdL9LsHhLMQbKUFmGYxdEBVyCB U0ANU5BGPoICIwIY5ZGmHeQEYsUtevLqNgHRIcDJWrno3FLKAdOIBqUVVcPuHaANEjVUQoBVzyVXStLG O8GZS0DPAlYEGlUR5MNdSlZRAnKjq5BmzzXRGpHWXaqz2RHSIlMCRvZHy9JCGhIEQbWBYmQBtqEYLzVJ ZjVCL0EQEmYFUkAX1AAjWtZMEtHaEkEYMkKSYfZKIz fi4BXJToAXBxWTXwJPCnJTVwSGNaTCjyDWNyGRGwOBS1KZLgZGQvQU2GVjZrOKRlVpFmYjZrRVGgBKLu xy3IFHRvPEEsJeH6YHLpKJCkXEIhDGumVKYgLTThGAM4YDSuJMWuGV7ZPxTlGRSsHqE6DYlsOVHdHRCp bp8YIDYaBCQpCcb9SXUwOWBcNQVyUOqpTWTrWNP9Xs zwKCDePAJuAX7TEgBrXGCaTKH3TEDhFSYaXYEmch9OQGBxFXT6XIiuJJIrQQXsQYReQJqwERIwFCK1QP D3CUOiTNNjEM8BWjXoQONvGTRdMIBpHKMdLUEzau3FEJHpKFU4DsNdJLKqUGCtIBDdZJhnGHOmFDO9Jb ArOIXwMKPxYL1YCuQaATPhGZe4SDGoVZUeHUEeoa5Z DRGmMYE5ZdC0VHJsTVXjJVFcAZhnESKsWDWpVfh0NDLtOWAlVE6TNxJnPEUvOHC7BUYyMBTqADBfxn2M YVQmJHS4NiE5DBXdPPCoPVZvLQrvDHEuSPFiCwx3ICHrXHMhET0DIeAuCBOjJJCySqWhAOEgDHOyis1P FAGyCZE7BSTzFJCnCVRqLWRpYVnrWULrKBR4YSp3EV HtHBSnVX3QLsCyGSTtSVGwHWHgCRQrSKIvte8DQLLfARN7SxN5IiZzGSYkTFVrPAjkNOJvVNG4RmBzBX JcQMUwSK1HIfBjHUFcJRP6NsriLFCbPBKfll0CwALisDyvsb6OMTvARf7UeUtfRPB0JBkkCw4wtQS4Xf YnCZTHVt9SpnFkFHEjFFBSDZqkFFSyRNC1CVTdSwFb OHipIgBkOzPaOTWuEEFjC5J9Ljj6FDAuLqI4HvJtKUY4GADdOjPrTLItXUX9AXH4MmC4PItoIQMxDYA+ BJ5aYEh+Tt4Vl2ZxgtX9wrDoJGy9XnPuEB8WLUPQY5EEGz== ID Date Data Source [id number] 08/26/2020 02:49:08 PM EDT [facility] Name Value Range Interpretation Code Description Data [place] rce(s) Supporting Document(s) History and Physical [facility] LWPJVj5pIcNEJlEx77/HRNniLGBsp3EpSBwwWAg2UZilHARyF9FpXXC4cW4sLJD2JKmPTkQaZbVdObKg lbm [file] uyqATfhFfjBQKGNuLgWfI7IDgsNRNCUg4A ID Date Data Source [id number] 08/25/2020 03:29:00 PM EDT [facility] Name Value Range Interpretation Code Description Data [place] rce(s) Supporting Document(s) SARS coronavirus 2 RNA [Presence] in Res piratory specimen by MARK with probe detection NEGATIVE [facility] This lab was ordered by [facility] a nd reported by [facility]. ID Date Data Source [id number] 08/17/2020 03:58:41 PM EDT [facility] Name Value Range Interpretation Code Description Data [place] rce(s) Supporting Document(s) Discharge Summary [facility] COMKXl4rBeINGdVv89/FNRhcNVGjk1JlNAcdTYj4IVbcEGWkG9KuZAI2dJ3uWUI3TUqTLtYpBzYlMcKx lbm [file] ICAgICAgICAgICAgICAgICAgICAgICAgICAgICAgIC UkXMKhQWFjNEHiNNOdXSUyFZKuJEAbRBZfRJPiJYSsQAUuOLRvPK9NYRUlVEToAIWnDAIoAKYmSSHmWD AgICAgICAgICAgICAgICAgICAgICAgICAgICAgICAgICAgICAgICAgICAgICAgICAgICAgICAgICAgIC CwASNuPVLnPVGnUOHrVZWrOZMmEQ0EALNvBHOgJFBu ICAgICAgICAgICAgICAgICAgICAgICAgICAgICAgICAgICAgICAgICAgICAgICAgICAgICAgICAgICAg EEEbUXWuKVKvYDHgBSHkERDsXDBqEHYjCALnGFDcYS9PLHBrXPSfVODcUTJvFMKyCUUaJBEbTOSeCYXi ICAgICAgICAgICAgICAgICAgICAgICAgICAgICAgIC UmVFLjIVWwVFSuIUJkIYCaFTSsIDPzHHBrCNFaZIXxGMMuTDBqNDEaGA5ARCCnJFYeVJXfWBUhYFYcVL AgICAgICAgICAgICAgICAgICAgICAgICAgICAgICAgICAgICAgICAgICAgICAgICAgICAgICAgICAgIC BnCGRfSROvPKJxWIYsYEYfKMQyKQTpKF8LDYZnLMPl ICAgICAgICAgICAgICAgICAgICAgICAgICAgICAgICAgICAgICAgICAgICAgICAgICAgICAgICAgICAg LXSnLBVjLWFuFVEjEWWqFIZsUKHuLPRxFMBcXWEeUYTyGV8YNPPpASGfZRMnFWRzXRMrBHTeSAUsGSZt ICAgICAgICAgICAgICAgICAgICAgICAgICAgICAgIC VwXSYfJUDfFQCkSTHbYVWzNVNsMKQqYZQzAVUrMZDxBRQqZDWrFCClXLIgWK8TGOHdISCaEWOqRFQtGV AgICAgICAgICAgICAgICAgICAgICAgICAgICAgICAgICAgICAgICAgICAgICAgICAgICAgICAgICAgIC VyMUNsESPsPYNlZSMbLRPeZEHvHBZvWONhCJ4FMILu ICAgICAgICAgICAgICAgICAgICAgICAgICAgICAgICAgICAgICAgICAgICAgICAgICAgICAgICAgICAg MHSmZODrUEJwDTRzSTCiXKGvFRImSUIlTDKiHWRcGLMcVEPcUR5EZESsOJNaHYOcUPGtQTIeYMZlHCSu ICAgICAgICAgICAgICAgICAgICAgICAgICAgICAgIC SjDKMjGGBhIYAxHMBcHLCdBFWqVBXlWLLkWPGgLYWjIDToTRYgKQDnHCWvRHToNE0WKR44wZBzx1E4TL GtSF6gnkj/Gy2ITXtvejDrxOAwRZ1TXxFkMX5zgo7KHnQwBQ1lcn1ZPFzUDgWfQ7L1yTUwZTAmIBXZNy NuJ64mMBwsEe10XPwfIRSpYrPkSQf8Xm3CQlQbT8yr ECPeCdD8OHSlAeV4XFHaVmX9FXNwIqEdQUJlNIYrZOLnBHPNNFX5XLYsXvLnBzBiZRWlMXjcPLILJDOd OOAdDjXnKsRwFWXuOQ7JEXVfX419ceHbPZCUSb3+GSergdLcNtgNVzG2NVXqb2LaRZe8IG7DMYEzVnzj t3QgCWudCKRBRUjnWE9FRBT2TCB5LDRrCd1FIZHaY4 85grRcZR0FQo4VLjPdXF5edx8NUZcpCWMqImvAZrj1EXawNB2VvIPyGOlIpLAumGPnG1DzZ1VuuNQswX FgiEFIzFRfDJVjKTVqkmCvAiZwjOnqpOyzYWFlNDQfNo9lEb8bECYjCVPsJqCbWJCITR1QEEItEGPauU BnWXRiFLVBGN4TCOwpMZE0ETYtwqVvqYWnZNpmNI2P YXJlbnQgNTcgMCBSDQo+Uj2TGX3sz6JjPCy1ZLYsTC8cbl7QDXoJAvGmB8L3bGCbX8X2NArgLb2RKQAo XSDyOKFcMKOHKRbdDW7JRF8kkdQ0IZ8KtEOoBGDgLCScrXAvKDu5S55faJUrKNooJO7ESCH+Luz+Pg0K VQTxAYTlKFHpQcJtTXBOGhHdL0SuB6FBk0HqQ6SlKT 19iJsmfqCoYVavLD3OPE7cNQSeLGGCVR9SgRSejK7eijM4AiHqMXRWEgBjU65utEOmMLDaOTK5VLBiOw 8XYUSwU8VtymVevYgzbpPhEVCvDAMLYB3TQRiitmZfaTOhpNcrAE51wMqlTV4VCk0IVpVrXB9elc4ZwT FcNn3MEYB6HC8ARESnAGKiCDCfFAH5YEBoHwIvIYvb WEWeKDKvZNE6WMEsUFZqEH6WEgWcUZSfTiP2KcLjLHDlNIAsgw9AQSGaXUF9BVN9NYOpIYHxUMGrUIhk GUUlLAGjRLT5YSDyRCLvOZ6YIqCgEOPpVBOrAHsdWUIgSNMddy4JZLThQTAbNIL3DPKtEOIhLIOqAVmc HBYmKMC1XqDiYWZqXAGkOA7AVdRaTYGzXCt0HHMiEL PbGXUkeq8SOKMxQBEwNjNyWLKsZKLwBGVcWUbtYLFxFWQyIsF9CGTzSZUuFQ4EDcIoSVFbTCV4KLtoIX ClXJVgxz4ZLGIgXZIwEuw4GWZsKWQnDXDnCBgpSRKhHPXvCLRsPRDdIKEzOE9IOoUsMLHwQjHzWMajJO KmYJEcxt1INCYuXAWcZAZ8XGIzDHXnSBArWQnpYMMg OFR9Vmi1NBOeOWHiAW2LWaYzYOUiMif2JtWiGMSgVZHelr2GISEvKDCkRELaVhOySUJwWYXhUVwnVJXb TATxNDDdZATwWCKeNU3OQzWtUQLjZgKnEqhlGGYxLXGljq6VPNZmAPJbVHC7QYBwGXFyMWMcKQjwVYWs AYX5XaDjDFIxRWIpIO5CLnGeCWNoSxO6UZUdTFBzHP Qjvf8PLYFpPEKxLnbkQiEgONHtVWDeFBabPUEsGCG3Kop4BNXbTXRvUI3SPpLqNJMhBdl7TkTgNDVsHC Iteb6FRPIbRZIgKHT0UiCcQFAvFJNbCOrnMOYuFZN1MMX8RYRsIPVmVV6HXmImTIXzReorAPycKWQlZZ Aveu6DWQAiXXXiMIXhFGVbZETqIVNwKDujOUItJPWd VXZ1YDAeMOYoYD6GMmFdAFYzETN9QqFsBFQwBMVemr4SBXRwFBM7YYx2HBGfPXNiKWRpWYaoSADsORPu EID0GYAqANBmBB3FZjGbHSReKLMbGHPaTHNqURYyqn9OCWYnTDX3JzP0THPjMDSoYYRmEMwbCOXcJFSb YMO5XXMsWVOiAP7TTgYjLKWhKQDrWKmrNLCjIJLpyv 0GDZKxXKN2JfS4LFZdDSObHITvGTmcCZDaJXD1WPIyOOCpKASaVH5EDgLiQGGyMOEiKRPyWSYoDMZklj 4RYULmFKO2VRF0KEHjQXUwTJDxNIrcPOQpOVI6Nqq3TCBcXSPhOM5DZnWeBGSlJFT7OMFhVHYuXOJevt 6XGSZmYWF6LNmtSCZiPUMxJQSjSZojMTJqXKMyXLF7 ZGFcCRMjDA7DJnAxKHKsDiHaTiXiFRAwEUDzvl2JRMMiFIM3NHZ1IQMfLGAsWOFkAXixBFQtRLIqFpF3 GOZfGWTwCD1QVgInRAYiZhX0CvXyWSGdFFPlpb3EQJXoCFK6Ley1SVXmREGgGBEySIolSNSqVDAgLHB8 AUZfNVAwHM0MTpRxGNYbUgIrIUXwQZNbXBLshp8ANS NgUIQ3YiG5XSDiOMCuYWGoDKasJDHoNUJnEDXlOPIrXXUaQR3SAhVaCDJpJoObHZywLFJjTHRlxw7PSL PtMJZ0ACD1JMGwEYAnAUNvQNirMBWfRYF3PmF9PHUxHJEdCB6BUpVuKDTrHpM5WftbLGXzHSGmky7ZuW AemXlfgn1BZSyYFl5WkXoyDNFnREnaRg0jnWO0UINn YWEVKl6EmqTwDYRmFKESQTrcZGYcJSQzWIDfGEx8ARZxW2DdO6G4GwBhVGLrJER8HZasORsnRxD9S3Sz JEGoYsF1CvX2UOL4UpKfKKTaTQH1XJu9WHI0T0C+XS9qYHp+Ab9Mw9FgqwP6vnNrDSg3ZuOyFC2DYTQT T0YNCg== ID Date Data Source [id number] 08/15/2020 07:55:53 PM EDT [facility] Name Value Range Interpretation Code Description Data [place] rce(s) Supporting Document(s) Color of Urine [facility] Clarity of Urine [facility] Specific gravity of Urine by Refractometry automated 1.010 1.003 -1.030 [facility] pH of Urine by Automated test strip 7.0 5.0-8.0 [facility] Protein [Mass/volume] in Urine by Automated test strip [facility] Glucose [Mass/volume] in Urine by Automated test strip [facility] Ketones [Mass/volume] in Urine by Automated test strip [facility] Bilirubin.total [Presence] in Urine by Automated test strip Negative [facility] Hemoglobin [Presence] in Urine by Automated test strip [facility] Leukocyte esterase [Presence] in Urine by Automated test strip Negative A [facility] Nitrite [Presence] in Urine by Automated test strip Negati ve [facility] Leukocytes [#/area] in Urine sediment by Automated count 0 -5 [facility] Erythrocytes [#/area] in Urine sediment by Automated count 0-3 [facility] ID Date Data Source [id number] 08/08/2020 03:50:12 PM EDT [facility] Name Value Range Interpretation Code Description Data [place] rce(s) Supporting Document(s) History and Physical [facility] JJPMBz6tKzACMeJn37/GVXykHGRgg4TbLCpbDKb0PIzmYVHeS6QcVQG9vO0qYES8HBpHRlPtQsVsQnQd [facility] [file] VnnCjyTMHFDuJgEMM9MIijZZLKCc4Y ID Date Data Source [id number] 08/07/2020 04:12:43 PM EDT [facility] Name Value Range Interpretation Code Description Data [place] [facility](s) Supporting Document(s) History and Physical [facility] MBTSRz1nVnQXEiEi14/YFHuvHABxk3JjBPxyEOy2TCksWSOlA0McYYT4pS2wTUJ3KBsQXoCdNnAiEmMx lbm [file] ICAgICAgICAgICAgICAgICAgICAgICAgICAgICAgICAgICAgICAgICAgICAgICAgICAgICAgICAgICAg ABDfDZVgTIZoWYPbXVSxCO1DLMTeRKSnSMJmRSSkAUHsHIJiXOSwFWItCKCiRIOaXHGkCPAyHOObMZCr ICAgICAgICAgICAgICAgICAgICAgICAgICAgICAgIC GdWYAkRRGaUAPlNDIfSNUpMOApWPUvDMRdPY1PSRUnHZFaCOWrMOFiXFVpZTCtCCVvFFXtPMUqOSIiFX AgICAgICAgICAgICAgICAgICAgICAgICAgICAgICAgICAgICAgICAgICAgICAgICAgICAgICAgICAgIC SnUALrDNRsMR2EVLFhMAVkIRApPJRpXLPlUHOgCJCk ICAgICAgICAgICAgICAgICAgICAgICAgICAgICAgICAgICAgICAgICAgICAgICAgICAgICAgICAgICAg ARXdSTFvTHIsMIIdCTHxTQUrQA1BBZFjSPUgYUBjOQWuTLOaDWGxFCKtKEQiWVWgZKIvFIAiPSNqPKGi ICAgICAgICAgICAgICAgICAgICAgICAgICAgICAgIC WqMXGmKWTrLMSvAHUiVGWuIDAeAHTqEYVuNQGrJI3UHHZhMKRzHKBlHRCsRJEyZSKfQHOuYKAmDWMhIN AgICAgICAgICAgICAgICAgICAgICAgICAgICAgICAgICAgICAgICAgICAgICAgICAgICAgICAgICAgIC KfHLUcDGLrOCEkRT4MMSRqUPNdTXMuSTDrPYVqRWSp ICAgICAgICAgICAgICAgICAgICAgICAgICAgICAgICAgICAgICAgICAgICAgICAgICAgICAgICAgICAg SCSfZNCwXMQaIWBxNLGuJLAfRBXoGF1AAGQeMIYzODIiBSVaEDYvYTJsCIIiIROoRPFvKLFlVWKgOFWk ICAgICAgICAgICAgICAgICAgICAgICAgICAgICAgIC YoSLHhMRUaGMTbNBVwAKGzKAUsQTMcXVQcNNQtHQPeBN6DGTEjZDOrBLMgWGTgZVGkFUCaUZKbOHSiAV AgICAgICAgICAgICAgICAgICAgICAgICAgICAgICAgICAgICAgICAgICAgICAgICAgICAgICAgICAgIC BoGBGhVJLjUFPmHJRvMH5GXSMdWRYgZNClGGZvFPQc ICAgICAgICAgICAgICAgICAgICAgICAgICAgICAgICAgICAgICAgICAgICAgICAgICAgICAgICAgICAg XVPxXGIpSVNwIJAjTTGyJPQqTKJvZHVlNI4DNT24xNEfl1V9KQNqKH1lzsl/Zc6FUMokplXeeHYmZS9Q CaExPS1ugd2WAhTpRM4org0UVVcZJkInC4X9kXOiWU UmOMXYHnCkR92qMGtiHc67ZGtlLCZsFeIvICa5Ve1VExGzN8lgKNNmJiP4ZHLsYsB5QUMdToE3JXRoNv DkNYWxCNGyRAMjCIJGWQA4PUNhXbWhTtNtYTQzHS9CLBGqG968hfMcEf1VSq0GGdGiOJ0cyf1CNVKuYK UpFhfPDnh2TXhjVK0AeEQtpYW8UOHvKNEQMdOyR2dg h2EhPPEdNGEEEBsnZY8Dn7CzwITjCYl+Rh3YLS3ip7GmUKf0KISfQG7scd7JPBbCHaTnU4XazKanOGbb EVXpsSSZxMBlbYNsdBHqTYMEeAvzLYWePF0IPEO8GIMtCEYmIvMpARWfWWc1IgDRRFnFEkBwO8Hlm4Nm BwQ2LVVrWjNzXFmhELSaKjP8MA85sXzcRK0JXVOxGZ BxWQ99BRYjKCJmOa5TOu9JLsLjQS6ant7PDSCyYYLiQveAWkm4AWonYQ3StWYcW9BgcIYgb4eUFhKrZ8 PHYEGwZQYkNr7XPWKzXwBjWZNmEHvfDA1bVAHiFTTHoOatiyS1VX6BQB5wecRsPX0PHaSkZo7eVk8AWd ZpU1QkQ4DyUVKtMJEHMAarAY9LRSgzVE3qTR4Gx9LL bMBgcP8zqw5XXVQxYZOnWyzskb4WYhnjD2J4kBxwIBOxMXYwAPLIJRleLG9RNWMsIFN5YJR3OiAdHXFX GtDfP92cZL2VL6Oqa58zUzX4VZStSbShHKmaHJ32tMfrrsQwpXOvpCgfWK2XUj9+DQplbmRvYmoNCnhy HUFWCvNkHVVAMqAeHPXqHLMyLWSqKkY0FcFxJg4VLS RuASDcRANvPvNzZYPmTNYpLHohTNPiFCM2CEH9PAFcMSZrWI7PMqSmAXIrJal9ZBDmCDHrUXVjzl0TSO AyFDOvITJ3BeHtTAKyHZNcDWgyKAWgLOOtPJL8IGEwDNMqIM6MUxWuVNQdDBWtRREnQCFxSVJhbb3GTQ TdCONbMtNzOiEhEIQjWSNrXMpzIOAwWQH3URO4NQZp UOGxLA7XTxXxESYrOPH2UkWtTLWiUDNpnz9ABBRvSTInNXKgOcBrNFRkMQHxMHcfBQSdFLM4GZb2EGUg LMCtSI8SDpVlGSPaIBSzLSRgVSSsEOJppt0WWNQtUAYnYIy9QBFuAJRyKVPsYJdoVIZlEZD9MTX2IKGt UOJeZY9SZjDzVBPyLeG4LrNnSKYmNKSbkk1FXPRbCJ UcHnFxFfBhFAZbQTEkAAviCQZeHDElBFKuYKTmYFHlXJ5IKfDcKKXgQzP5GbnwZQRdENStqt4UGMIdPO BzHPRqMXEtWOFxWDIgBYmvJMAmEDR3JAN6SUWtVRQjUJ1HMpBdECOyLgGhYKseUQOpJCJtlo0DOISkMN JwCPw8ErLiFXKmJAWsLYzpGEOhPBK0ZAE9JJMeFZPu WK4BQdWrFJIbCqZxSWpaRZVzILEmyu1SFAHnFOBiCeTvHhShILBrBPBoDMnjKQTgGJH9QOB2BVHcNUPn ZW1MBrItUDSoAjo3QVyeLUIbKWNgvc9DYWZkNDFsMZK2QcQoFVStCEBaQJfkBTLhYCC8FLYeWEAkOUBa JE8CPzZxOYWaQlgpKUBkQOJyCJEboo1XNWEfIGXvDY NqOFEoWJRpDVGhLCevUYDbQXGvCiE1ZHImDTQkXA4MNbViROEzTiV9BQNpRBYnKLNjjt1HUUSxZPMhLN O7JOCaSEYfDEApVXelKAPkWNA4RUngSUNzSQZbLO4DKwDtONTaPmX7VBydOHHwVNZjxu5TRUDvFQAcDq L1KJLhMKUtEOVlUXnmTRHrMQN1OtK9KIDmJPQjBT9B GeAmOACoWnG5OMywXXHuYXFtxk0WVRTjIHAtWeW6QKVmZORrCFPwWWqdEARrNCV6HAF6GHBeENNbZW3W OvHdVWHfYdzkMoHpYAFmGHPhqa5JPRAoVIDxLPx4UIAiWIHcTTHtOTxnURSvKJI6OSX1YRZfNSGjUF8K UlGeOBHmXcd0LjFoYBGuJGWgss9TnCYcePuzjg8PBG lJGs2EvXejGTH2TMtmGb4htNY9XJLrHYNMSf5UscJuSNFsIGQECUcoFNPhTAN1YDo4UiVmIFA6NWxoDD BgOjW8FoPvJzThZCS0KZnjGdV0YmnzSvWpBYHtHYT0KPMbWMMuTzUpBeQmAMMqNVhfVAF+BN5hSVl+Pg 9Jh6MzejY3yzVuYBdoTECpJP9QXVPTS4VQQh== ID Date Data Source [id number] 08/06/2020 12:10:00 PM EDT [facility] Name Value Range Interpretation Code Description Data [place] rce(s) Supporting Document(s) SARS coronavirus 2 RNA [Presence] in Res piratory specimen by MARK with probe detection NEGATIVE [facility] This lab was ordered by [facility] a nd reported by [facility]. ID Date Data Source [id number] 07/28/2020 01:05:[address] [facility] Name Value Range Interpretation Code Description Data [place] rce(s) Supporting Document(s) SARS coronavirus 2 RNA [Presence] in Res piratory specimen by MARK with probe detection NEGATIVE [facility] This lab was ordered by [facility] a nd reported by [facility]. ID Date Data Source [id number] 06/28/2020 07:41:00 PM EDT [facility] 1 OrderSheet [facility] Emergency Department [address] [place] [address] Phone #: suy- [phone] 06/28/2020 19:40 Patient: BRUNA LEE Sex: F [...] rce(s) Supporting Document(s) ID Date Data Source [id number] 06/28/2020 07:41:00 PM EDT [facility] 1 Medication Reconciliation Report [facility] Emergency Department [address] [place] [address] Phone #: ext- [phone] 06/28/2020 19:40 Patient: [...] Medication information:Not obtained. 2 Medication Reconciliation Report [facility] Emergency Department [address] [place] [address] Phone #: ext- [phone] 06/28/2020 19:40 Patient: [...] rce(s) Supporting Document(s) ID Date Data Source [id number] 06/28/2020 07:41:00 PM EDT [facility] 1 Medication Administration Record [facility] Emergency Department [address] [place] [address] Phone #: ext- [phone] 06/28/2020 19:40 Patient: [...] rce(s) Supporting Document(s) ID Date Data Source [id number] 06/28/2020 07:41:00 PM EDT [facility] 1 General Instructions [facility] Emergency Department [address] [place] [address] Phone #: ext- [phone] 06/28/2020 19:40 Patient: [...] patient. ADDITIONAL INFORMATIONDrug Abuse 2 General Instructions [facility] Emergency Department [address] [place] [address] Phone #: ext- [phone] 06/28/2020 19:40 Patient: [...] job or your family Arrest, conviction, and residential sentence for possession of an illegal substance [...] to continue abusing drugs. 3 General Instructions [facility] Emergency Department [address] [place] [address] Phone #: ext- [phone] 06/28/2020 19:40 -- Patient: BRUNA LEE Sex: F : 1985 Age: 35y Eat a balanced diet and start a regular exercise program.Follow-up careFollow up with your healthcare provider, or as advised. Contact one of the resources below for help: National [place] on Alcoholism and Drug Dependence, www.ncadd.org, Narcotics Anonymous, www.na.org, [facility] [facility], www.[facility], . This center can refer you to a treatment program.Call [phone] if any of the following occur: Seizure [...] at an injection site 4 General Instructions [facility] Emergency Department [address] [place] [address] Phone #: ext- [phone] 06/28/2020 19:40 Patient: BRUNA LEE Sex: F : 1985 Age: 35y [id number] [employer] [place] [address]. All rights reserved. This information is not [...] yourself out of the 5 General Instructions [facility] Emergency Department [address] [place] [address] Phone #: ext- [phone] 06/28/2020 19:40 Patient: [...] You have trouble speaking Your vision changes [phone] [employer]. [address] [place] [address], [place] [address]. All rights reserved. This information is not intended as asubstitute for professional medical care. Always follow your healthcare professional's instructions. You have been given the following additional information: Drug Abuse Headache, Tension 6 General Instructions [facility] Emergency Department [address] [place] [address] Phone #: ext- [phone] 06/28/2020 19:40 ------- Patient: BRUNA LEE Sex: F : 1985 Age: 35y(Electronically signed by RASHID Godwin 06/29/2020 20:04) Name Value Range Interpretation Code Description Data [place] rce(s) Supporting Document(s) ID Date Data Source [id number] 06/28/2020 07:41:00 PM EDT [facility] 1 Clinical Report - Nurses [facility] Emergency Department [address] [place] [address] Phone #: dti- [phone] 06/28/2020 19:40 Patient: BRUNA LEE Sex: F [...] treated for.Pt states she was seen at [facility] and left AMA because she was not being seen. Pt is able to speak in fullclear sentences, in NAD at this time sating at 96% on RA. Pt states she is on suboxone and had her dosethis am.).Treatment ELECTRICAL INTERN:(advil last dose 2 hrs ago and suboxone). [...] Chand R.N. 2 Clinical Report - Nurses [facility] Emergency Department [address] [place] [address] Phone #: ext- [phone] 06/28/2020 19:40 [id number] Sex: F : 1985 Age: 35yAmoxicillin. --19:49 [...] no deficiencies. 3 Clinical Report - Nurses [facility] Emergency Department [address] [place] [address] Phone #: ext- [phone] 06/28/2020 19:40 Patient: BRUNA LEE Sex: F [...] Mariana Trammell 4 Clinical Report - Nurses [facility] Emergency Department [address] [place] [address] Phone #: ext- [phone] 06/28/2020 19:40 Patient: [...] 100%. --20:46 06/28/20 Mariana Trammell.DISPOSITION / DISCHARGE [place] Coma Scale: 15- eyes open- spontaneous (4); best verbal response- oriented (5); best motor response- obeys commands (6). Departure time: 21:07 06/28/2020. Condition at departure: improved. No learning barriers present. Discharge instructions provided and reviewed with the patient. Reviewed referral to family practice for followup. Patient verbalized understanding. Written instructions not provided in Hungarian. The patient was discharged home. She left [...] rce(s) Supporting Document(s) ID Date Data Source [id number] 06/28/2020 07:41:00 PM EDT [facility] 1 Clinical Report - Physicians/Mid Levels [facility] Emergency Department [address] [place] [address] Phone #: ext- [phone] 06/28/2020 19:40 Patient: BRUNA LEE Sex: F [...] for. Pt states she was seen at [facility] and left AMA because she was [...] abuse. 2 Clinical Report - Physicians/Mid Levels [facility] Emergency Department [address] [place] [address] Phone #: jkw- [phone] 06/28/2020 19:40 Patient: BRUNA LEE Sex: F [...] ROM. 3 Clinical Report - Physicians/Mid Levels [facility] Emergency Department [address] [place] [address] Phone #: ext- [phone] 06/28/2020 19:40 Patient: BRUNA LEE Sex: F [...] referral: 4 Clinical Report - Physicians/Mid Levels [facility] Emergency Department [address] [place] [address] Phone #: ext- [phone] 06/28/2020 19:40 Patient: BRUNA LEE Sex: F : 1985 Age: 35y e valuation and treatment. Summary of care provided to patient. Understanding of the discharge instructions verbalized by patient.(Electronically signed by RASHID Godwin 06/29/2020 20:04) Name Value Range Interpretation Code Description Data [place] rce(s) Supporting Document(s) ID Date Data Source [id number] 06/17/2020 08:41:00 [place] [address] RESPIRATORY CARE REPORT ==== ---------NAME------- NUMBER SEX AGE ADMIT DISC. XRAY# F/C TYPECOME BRUNA [id number] F 34 06/16/20 06/16/20 [id number] X6B E/R DATE OF : 1985 M/R# [id number] PH#: [phone] TR-03 LOCATION: EMERGENCY DEPT EKG [id number] COMP LETE:06/17/20 02:50 [place] 50032 PHYSICIAN: HIEU CLIFFORD KARAN Name Value Range Interpretation Code Description Data [place] rce(s) Supporting Document(s) ID Date Data Source [id number] 06/17/2020 10:02:00 [place] [address] PHONE: [phone] FAX: [phone] Name .................. : JESUS MOSLEY Acct Number.................. : [id number] ROOM. ................. : TR-03 Number ................... : [id number] Stay type ............. : E/R Discharge Date......... ... : 06/16/20 Admit Date ......... : 06/16/20 Admit Phys .................... : HIEU JENSEN Date of ....... : 1985 Family Phys ................... : NON STAFF Phone .................. : [phone] Age ................................ : 34 Film# .................. .:[id number] Sex ................................. : F Unsigned transcriptions are preliminary reports and do not represent a medical or legal document CHEST PORTABLE [id number] COMPLETE:06/16/20 19:31 KHAI [id number] Reason( s): Chest Pain PORTABLE CHEST X-RAY: INDICATION: Chest pain. FINDINGS: The cardiac and mediastinal silhouettes appear normal and the lungs are clear. The bones and soft tissues are normal. The upper abdomen is unremarkable. IMPRESSION: No acute disease identifiable. Electronically Reviewed and Signed By Dakota Fernández M.D. , 06/17/20 10:03, [facility] Transcribe Initials: DZ , Transcribe Date: 06/16/20 21:15, Dictation Date: Copy for: REJI Bundy via fax Copy for: EMERGENCY DEPT via mode Copy for: 710 MED REC DISCHARGED Page 1 of 1 Name Value Range Interpretation Code Description Data [place] rce(s) Supporting Document(s) ID Date Data Source [id number] 06/16/2020 04:22:00 PM EDT [facility] 1 OrderSheet [facility] Emergency Department [address] [place] [address] Phone #: ext- [phone] 06/16/2020 16:20 Patient: [...] Description Priority Entered Acknowledged Initialed 2 OrderSheet [facility] Emergency Department [address] [place] [address] Phone #: ext- [phone] 06/16/2020 16:20 --------- Patient: BRUNA LEE Sex: [...] rce(s) Supporting Document(s) ID Date Data Source [id number] 06/16/2020 04:22:00 PM EDT [facility] 1 Medication Reconciliation Report [facility] Emergency Department [address] [place] [address] Phone #: ext- [phone] 06/16/2020 16:20 [id number] Sex: F : 1985 Age: 34yWeight: 70.7 [...] to the patient:None. 2 Medication Reconciliation Report [facility] Emergency Department [address] [place] [address] Phone #: ext- [phone] 06/16/2020 16:20 Patient: BRUNA LEE Sex: F : 1985 Age: 34y Name Value Range Interpretation Code Description Data [place] rce(s) Supporting Document(s) ID Date Data Source [id number] 06/16/2020 04:22:00 PM EDT [facility] 1 Medication Administration Record [facility] Emergency Department [address] [place] [address] Phone #: ext- [phone] 06/16/2020 16:20 Patient: BRUNA LEE Sex: F : 1985 Age: 34yWeight: 70.7 kgHeight/Length: 60 inBMI: 30.4ALLERGIES: Penicillins, Sulfa AntibioticsDate/Time Medication Administered Medication Ordered Name Value Range Interpretation Code Description Data [place] rce(s) Supporting Document(s) ID Date Data Source [id number] 06/16/2020 04:22:00 PM EDT [facility] 1 General Instructions [facility] Emergency Department [address] [place] [address] Phone #: ext- [phone] 06/16/2020 16:20 Patient: [...] with patientand understanding verbalized. 2 General Instructions [facility] Emergency Department [address] [place] [address] Phone #: ext- [phone] 06/16/2020 16:20 Patient: BRUNA LEE Sex: F [...] may also be needed. 3 General Instructions [facility] Emergency Department [address] [place], [place] [address] Phone #: ext- [phone] 06/16/2020 16:20 [...] begin to improve in thenext 24 hours.Call [phone] if any of these occur: Trouble breathing Confusion 4 General Instructions [facility] Emergency Department [address] [place] [address] Phone #: ext- [phone] 06/16/2020 16:20 Patient: [...] or water and you are getting dehydrated [id number] [employer]. [address] [place] [address]. All rights reserved. This information is not intended as asubstitute for professional medical care. Always follow your healthcare professional's instructions.[place] DietYour healthcare provider may recommend a bland diet if you have an upset stomach. It consists offoods that are mild and easy to digest. It is better to eat small frequent meals rather than 3 largemeals a day. 5 General Instructions [facility] Emergency Department [address] [place] [address] Phone #: ext- [phone] 06/16/2020 16:20 Patient: [...] of fruit, dried fruitMeats 6 General Instructions [facility] Emergency Department [address] [place] [address] Phone #: ext- [phone] 06/16/2020 16:20 Patient: [...] extracts, kristopher, cinnamon, thyme, mace, allspice, paprikaAvoid: Buhl powder, cloves, pepper, seed spices, garlic, gravy pickles, highly seasoned saladdressings [employer]. [address] [place] [address]. All rights reserved. This information is not intended as asubstitute for professional medical care. Always follow your healthcare professional's instructions.Clear Liquid Diet 7 General Instructions [facility] Emergency Department [address] [place] [address] Phone #: ytk- [phone] 06/16/2020 16:20 Patient: BRUNA LEE Sex: F [...] grocery stores. You don't need aprescription. [employer]. [address] [place] [address]. All rights reserved. This information is not intended as asubstitute for professional medical care. Always follow your healthcare professional's instructions. You have been given the following additional information: Abdominal Pain, Unknown Cause, (Female) Diet, [place] (Adult) Clear Liquid Diet 8 General Instructions [facility] Emergency Department [address] [place] [address] Phone #: ext- [phone] 06/16/2020 16:20 Patient: BRUNA LEE Sex: F : 1985 Age: 34yNo strenuous activity until better. Rest at home for one days.(Electronically signed by RASHID Sanchez 06/16/2020 21:17) Name Value Range Interpretation Code Description Data [place] rce(s) Supporting Document(s) ID Date Data Source [id number] 06/16/2020 04:22:00 PM EDT [facility] 1 Clinical Report - Nurses [facility] Emergency Department [address] [place] [address] Phone #: ext- [phone] 06/16/2020 16:20 Patient: BRUNA LEE Sex: F : 1985 Age: 34yTRIAGEArrived by EMS. Historian: patient. Unaccompanied. ( went to [facility] today for feeling like she had beenpoisoned, she thinks her mother and sister poisoned, feels like she is going down hill with her health, shestates she is suing [facility] because they are not listening to her, taken away from [facility] by polic).Acuity: LEVEL 4.Chief Complaint: BIZARRE BEHAVIOR.Alert.Onset. (1 year but getting worse).Treatment ELECTRICAL INTERN:Took Tylenol. 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 2 Clinical Report - Nurses [facility] Emergency Department [address] [place] [address] Phone #: ext- [phone] 06/16/2020 16:20 Patient: BRUNA LEE Sex: [...] Maldonado R.N. 3 Clinical Report - Nurses [facility] Emergency Department [address] [place] [address] Phone #: ext- [phone] 06/16/2020 16:20 [id number] Sex: F : 1985 Age: 34y Interventions [...] Moreau, RN 4 Clinical Report - Nurses [facility] Emergency Department [address] [place] [address] Phone #: ext- [phone] 06/16/2020 16:20 Patient: [...] Patient verbalized understanding. Written instructions provided in Hungarian. The patient was discharged by the physician administrative assistant coordinator. She was discharged home. She left via private vehicle and taxi. --20:18 06/16/20 Jovan Maldonado R.N. 20:00 06/16/20. BP: 121/50. MAP: 73. HR: 83. RR: 16. O2 saturation: 96%. Temp: 97.8 F. Pain level now: 05/05. --20:18 06/16/20 Jovan Maldonado R.N.Locked/Released at 06/17/2020 03:08 by Jovan Maldonado R.N. Name Value Range Interpretation Code Description Data [place] rce(s) Supporting Document(s) ID Date Data Source [id number] 06/16/2020 04:22:00 PM EDT [facility] 1 Clinical Report - Physicians/Mid Levels [facility] Emergency Department [address] [place] [address] Phone #: ext- [phone] 06/16/2020 16:20 Patient: [...] by a health care provider (went to [facility] today twice, escorted off property twice [...] Pharyngitis. 2 Clinical Report - Physicians/Mid Levels [facility] Emergency Department [address] [place] [address] Phone #: ext- [phone] 06/16/2020 16:20 [id number] Sex: F : 1985 Age: 34y Polysubstance [...] Reflexes normal. 3 Clinical Report - Physicians/Mid [facility] Emergency Department [address] [place] [address] Phone #: ext- [phone] 06/16/2020 16:20 Patient: BRUNA LEE Sex: F [...] Beta-HCG, Quant Serum: (JENN: 06/16/2020 18:16) ( [facility]25[facility] Final results Test Result Flag Units (Reference) HCG QUANT <0.5 mIU/mL Interpretation: Less than 5 mU/mL: Negative 6-10 mU/mL: Borderline (suggest repeat in 48 hours) >10: Positive Approx HCG range (mU/mL) Weeks post LMP 5.4-708 mU/mL 3-4 Weeks 217-26481 mU/mL 5-6 Weeks 4059-419348 mU/mL 7-8 Weeks 18798-129913 mU/mL 9-10 Weeks 49150-13359 mU/mL 12-14 Weeks 10794-28998 mU/mL 15-16 Weeks 8240-48653 mU/mL 17-18 Weeks CBC w Diff: (JENN: 06/16/2020 18:16) ( [facility] 06/16/2020 19:06) Final results Test Result Flag [...] PANEL 4 Clinical Report - Physicians/Mid Levels [facility] Emergency Department [address] [place] [address] Phone #: ext- [phone] 06/16/2020 16:20 Patient: BRUNA LEE Sex: F [...] Male GFR Interprentation 20-49 yrs >60 mL/min Qttdpa20-19 yrs >56 mL/min Normal 60-69 yrs >49 mL/min Normal 70-79yrs>42 mL/min Normal 80 and above >35 mL/min Normal Female GFRInterpretation 20-39 yrs >60 mL/min Normal 40-49 yrs >58 mL/minNormal 50-59 yrs >51 mL/min Normal 60-69 yrs >45 mL/min [place]49-42 yrs >39 mL/min Normal 80 and above [...] (13 - 60)Magnesium: (JENN: 06/16/2020 18:16) ( [facility] 06/16/2020 19:11) Final results Test Result Flag Units (Reference) MAGNESIUM 2.2 MG/DL (1.7 - 2.2)Acetaminophen Level: (JENN: 06/16/2020 18:16) ( [facility] 06/16/2020 19:11) Final results Test Result Flag Units (Reference) ACETAMINOPHEN 8.7 UG/ML (0.0 - 30.0)Salicylate Level: (JENN: 06/16/2020 18:16) ( [facility] 06/16/2020 19:25) Final results Test Result Flag Units (Reference) 5 Clinical Report - Physicians/Mid Levels [facility] Emergency Department [address] [place] [address] Phone #: ext- [phone] 06/16/2020 16:20 Patient: [...] Thrombosis, Pulmonary Embolus, Tissue heart valves, Acute UT Atrial Fibrillation, Valvular heart disease and recurrent [...] with grossly normal labs, normal activity on driver sales, othervitals WNL throughout ED course, resting comfortably in ED exam rm bed throughout ED course, no 6 Clinical Report - Physicians/Mid Levels [facility] Emergency Department [address] [place] [address] Phone #: ext- [phone] 06/16/2020 16:20 Patient: [...] appointment. 7 Clinical Report - Physicians/Mid Levels [facility] Emergency Department [address] [place] [address] Phone #: ext- [phone] 06/16/2020 16:20 Patient: [...] Name Value Range Interpretation Code Description [facility] Supporting Document(s) ID Date Data Source [id number] 06/16/2020 07:31:00 PM EDT [facility] Name Value Range Interpretation Code Description Data [facility] Supporting Document(s) DRUG SCREEN URINE [facility] URINE DRUG SCREEN Amphetamine [Presence] in Urine by Screen method PRESUMP POS ZAYNAB L: NEGATIVE [facility] BARBITURATES NEGATIVE NORMAL: NEGATIVE [facility] BENZO NEGATIVE NORMAL: NEGATIVE [facility] COCAINE PRESUMP POS NORMAL: NEGATIVE A [facility] Tetrahydrocannabinol [Presence] in Urine NEGATIVE NORMAL: NEGATIVE [facility] OPIATES NEGATIVE NORMAL: NEGATIVE [facility] Phencyclidine [Presence] in Urine by Screen method NEGATIVE NOR MAL: NEGATIVE [facility] \\BLDo\\URINE DRUG SCR EEN INTERPRETATION\\BLDx\\ THE CUTOFFF LEVELS FOR DETECTION ARE FOLLOWS: AMPHETAMINES 1000 ng/ml BARBITUARATES 200 ng/ml BENZODIAZEPINES 100 ng/ml THC 50 ng/ml PHENCYCLIDINE 25 ng/ml OPIATES 300 ng/ml COCAINE 300 ng/ml ALL POSITIVES ARE CONSIDERED PRESUMPTIVE POSITIVE CONFIRMATION WILL BE PERFORMED AT PHYSICIAN REQUEST. ID Date Data Source [id number] 06/16/2020 07:24:00 PM EDT [facility] Name Value Range Interpretation Code Description Data [place] r[facility](s) Supporting Document(s) [facility]IS [facility] URINALYSIS SOURCE Clean Catch [facility] ital COLOR Yellow NORMAL: Yellow [facility] ospital CLARITY Clear NORMAL: Clear [facility] spital Specific gravity of Urine by Test strip 1.010 1.001 - 1.030 [facility] pH 7 5 - 9 [facility] Glucose [Mass/volume] in Urine by Test strip NORM NORMAL: Negat [facility] Bilirubin.total [Presence] in Urine by Test strip NEG NORMAL: Negative [facility] Ketones [Presence] in Urine by Test strip NEG NORMAL: Negative [facility] Protein [Mass/volume] in Urine by Test strip NEG NORMAL: Negat [facility] Nitrite [Presence] in Urine by Test strip NEG NORMAL: Negative [facility] BLOOD NEG NORMAL: Negative [facility] Leukocyte esterase [Presence] in Urine by Test strip NEG ZAYNAB L: Negative [facility] Urobilinogen [Mass/volume] in Urine by Test strip NOR less kenna n 1.0 mg/dL [facility] MICROSCOPIC Not Indicate [facility] osp[facility] ID Date Data Source [id number] 06/16/2020 07:25:00 PM EDT [facility] Name Value Range Interpretation Code Description Data [place] rce(s) Supporting Document(s) Prothrombin time (PT) 12.5 SECONDS 11.0 - 15.5 [facility] INR in Platelet poor plasma by Coagulation assay 0.89 0.93 - 1. 23 L [facility] aPTT in Blood by Coagulation assay 39.8 SECONDS 24.8 - 36.7 H [facility] \\BLDo\\INR INTERPRETATION\\BLDx\\ Therapeutic range for Coumadin and related oral anticoagulants. - International Normalized Ratio (INR): 2.0 - 3.0 for Venous Thrombosis, Pulmonary Embolus, Tissue heart valves, Acute UT Atrial Fibrillation, Valvular heart disease and recurrent Systemic Embolism. - International Normalized Ratio (INR): 2.5 - 3.5 for Mechanical Prosthetic valve. ID Date Data Source [id number] 06/16/2020 07:25:00 PM EDT [facility] Name Value Range Interpretation Code Description Data [place] rce(s) Supporting Document(s) Choriogonadotropin.intact [Units/volume] in Serum or Plasma <0.5 mIU/ mL [facility] Interpr etation: Less than 5 mU/mL: Negative 6-10 mU/mL: Borderline (suggest repeat in 48 hours) >10: Positive Approx HCG range (mU/mL) Weeks post LMP 5.4-708 mU/mL 3-4 Weeks 217-54526 mU/mL 5-6 Weeks 4059-660266 mU/mL 7-8 Weeks 53705-748486 mU/mL 9-10 Weeks 24073-82920 mU/mL 12-14 Weeks 86545-37843 mU/mL 15-16 Weeks 8240- 33256 mU/mL 17-18 Weeks ID Date Data Source [id number] 06/16/2020 07:25:00 PM EDT [facility] Name Value Range Interpretation Code Description Data [place] rce(s) Supporting Document(s) TROPONIN T <0.01 NG/ML 0.00 - 0.10 [facility] ospital TROPONIN T0.1 ng/ml Recommended as the c linical threshold value forTroponin T. ID Date Data Source [id number] 06/16/2020 07:25:00 PM EDT [facility] Name Value Range Interpretation Code Description Data [place] rce(s) Supporting Document(s) SALICYLATE <0.3 mg/dL 2.0 - 20.0 L [facility] pital ID Date Data Source [id number] 06/16/2020 07:25:00 PM EDT [facility] Name Value Range Interpretation Code Description Data [place] rce(s) Supporting Document(s) COMPREHENSIVE METABOLIC PANEL [facility] COMPREHENSIVE METABOLIC PANEL Sodium [Moles/volume] in Serum or Plasma 139 mEq/L 134 - 153 [facility] Potassium [Moles/volume] in Serum or Plasma 4.3 mEq/L 3.6 - 5.0 [facility] Chloride [Moles/volume] in Serum or Plasma 100 mEq/L 98 - 107 [facility] Carbon dioxide, total [Moles/volume] in Serum or Plasma 26 MEQ/L 22 - 30 [facility] Glucose [Mass/volume] in Serum or Plasma 76 MG/DL 70 - 99 [facility] BUN 9 MG/DL 7 - 21 [facility] al Creatinine [Mass/volume] in Serum or Plasma 0.5 MG/DL 0.7 - 1.5 L [facility] BUN/CREAT 18 8 - 27 [facility] Protein [Mass/volume] in Serum or Plasma 8.0 G/DL 6.3 - 8.2 [facility] Albumin [Mass/volume] in Serum or Plasma 5.0 G/DL 3.9 - 5.0 [facility] Globulin [Mass/volume] in Serum by calculation 3.0 GM/DL 2.4 - 3.2 [facility] A/G RATIO 1.7 0.8 - 2.0 [facility] Calcium [Mass/volume] in Serum or Plasma 10.6 MG/DL 8.4 - 10.2 H [facility] Bilirubin.total [Mass/volume] in Serum or Plasma <0.7 MG/DL 0.2 - 1.3 [facility] Alkaline phosphatase [Enzymatic activity/volume] in Serum or Plasma 86 U/L 38 - 126 [facility] Aspartate aminotransferase [Enzymatic activity/volume] in Serum or Plasma 30 U/L 5 - 40 [facility] Alanine aminotransferase [Enzymatic activity/volume] in Seru m or Plasma 25 U/L 7 - 56 [facility] Anion gap 3 in Serum or Plasma 13.0 mmol/L 8.0 - 16.0 [facility] AGE 34 yrs [facility] NON-AA GFR >60 mL/min [facility] ital AFR AMER GFR >60 mL/min [facility] Male GFR In terprentation [...] >32 mL/min Normal ID Date Data Source [id number] 06/16/2020 07:11:00 PM EDT [facility] Value Range Interpretation Code Description Data [place] rce(s) Supporting Document(s) Acetaminophen [Presence] in Urine 8.7 UG/ML 0.0 - 30.0 [facility] ID Date Data Source [id number] 06/16/2020 07:11:00 PM EDT [facility] Name Value Range Interpretation Code Description Data [place] rce(s) Supporting Document(s) Magnesium [Mass/volume] in Serum or Plasma 2.2 MG/DL 1.7 - 2.2 [facility] ID Date Data Source [id number] 06/16/2020 07:11:00 PM EDT [facility] Value Range Interpretation Code Description Data [place] rce(s) Supporting Document(s) Lipase [Enzymatic activity/volume] in Serum or Plasma 13 U/L 13 - 60 [facility] ID Date Data Source [id number] 06/16/2020 07:11:00 PM EDT [facility] Value Range Interpretation Code Description Data [place] rce(s) Supporting Document(s) Ethanol [Moles/volume] in Blood <10.0 MG/DL [facility] ALCOHOL % 0.01 % 0.00 - 0.01 [facility] *FOR MEDICAL PURPOSES ONLY * ID Date Data Source [id number] 06/16/2020 07:06:00 PM EDT [facility] Value Range Interpretation Code Description Data [place] rce(s) Supporting Document(s) CBC W/AUTOMATED DIFF [facility] COMPLETE BLOOD COUNT Leukocytes [#/volume] in Blood by Automated count 6.8 10^3/uL 4.2 - 1 1.0 [facility] Erythrocytes [#/volume] in Blood by Automated count 4.84 10^6/uL 4. 20 - 5.40 [facility] Hemoglobin [Mass/volume] in Blood 14.3 g/dL 12.0 - 16.0 [facility] Hematocrit [Volume Fraction] of Blood by Automated count 43.3 % 3 7.0 - 47.0 [facility] Erythrocyte mean corpuscular volume [Entitic volume] by Auto mated count 89.5 fL 81.0 - 101 [facility] Erythrocyte mean corpuscular hemoglobin [Entitic mass] by Automated count 29.5 pg 27.0 - 34.0 [facility] Erythrocyte mean corpuscular hemoglobin concentration [Mass/volume] by Automated count 33.0 g/dL 31.0 - 36.0 [facility] Erythrocyte distribution width [Ratio] by Automated count 13.2 % 11.5 - 14.5 [facility] Platelets [#/volume] in Blood by Automated count 340 10^3/uL 150 - 45 0 [facility] Platelet mean volume [Entitic volume] in Blood by Automated count 9.9 fL 7.4 - 10.4 [facility] Neutrophils/100 leukocytes in Blood by Automated count 60.0 % 37. 0 - 80.0 [facility] Lymphocytes/100 leukocytes in Blood by Manual count 29.5 % 25.0 - 40.0 [facility] Monocytes/100 leukocytes in Blood by Automated count 7.4 % 3.0 - 8.0 [facility] Eosinophils/100 leukocytes in Blood by Automated count 2.2 % 0.0 - 7.0 [facility] Basophils/100 leukocytes in Blood by Automated count 0.6 % 0.0 - 2.5 [facility] %IG 0.3 % 0.0 - 0.0 H [facility] %NRBC 0.0 % 0.0 - 0.0 [facility] al Neutrophils [#/volume] in Blood by Automated count 4.05 10^3/uL 2.00 - 6.90 [facility] Lymphocytes [#/volume] in Blood by Automated count 1.99 10^3/uL 0.60 - 3.40 [facility] Monocytes [#/volume] in Blood by Automated count 0.50 10^3/uL 0.00 - 0.90 [facility] Eosinophils [#/volume] in Blood by Automated count 0.15 10^3/uL 0.00 - 0.70 [facility] Basophils [#/volume] in Blood by Automated count 0.04 10^3/uL 0.00 - 0.20 [facility] #IG 0.02 10^3/uL 0.00 - 0.10 [facility] #NRBC 0.00 10^3/uL 0.00 - 0.00 [facility] MANUAL DIFF NOT INDICATED [facility] RBC MORPH NOT INDICATED [facility] spital ID Date Data Source [id number] 06/16/2020 06:40:00 PM EDT [facility] Name Value Range Interpretation Code Description Data [place] rce(s) Supporting Document(s) pH of Serum or Plasma 7.37 7.32 - 7.43 [facility] pCO2 V 46.9 mm/HG 38.0 - 51.0 [facility] pO2 V 55.8 mm/HG 30.0 - 55.0 H [facility] Bicarbonate [Moles/volume] in Venous blood 26.5 meq/L 22.0 - 29.0 [facility] TCO2 V 28.0 meq/L 22.0 - 29.0 [facility] Base excess in Blood by calculation 0.7 -2.0 - 2.0 [facility] O2 SAT V 87.7 % 40.0 - 85.0 H [facility] ID Date Data Source [id number] 06/16/2020 06:40:00 PM EDT [facility] Name Value Range Interpretation Code Description Data [place] rce(s) Supporting Document(s) Lactate [Moles/volume] in Serum or Plasma 2.1 MMOL/L 0.2 - 2.2 [facility] ID Date Data Source [id number] 06/02/2020 09:35:00 PM EDT [facility] Name Value Range Interpretation Code Description Data [place] rce(s) Supporting Document(s) SARS-CoV-2 (COVID 19) NEGATIVE - SARS-CoV-2 (COVID19) [facility] This lab was ordered by [facility] a nd reported by [facility]. ID Date Data Source [id number] 04/21/2020 05:41:00 PM EST [facility] Name Value Range Interpretation Code Description Data [place] rce(s) Supporting Document(s) SARS coronavirus 2 RNA [Presence] in Res piratory specimen by MARK with probe detection NEGATIVE [facility] This lab was ordered by [facility] a nd reported by [facility]. ID Date Data Source [id number] 04/10/2020 02:50:00 PM EST [facility] Name Value Range Interpretation Code Description Data [place] rce(s) Supporting Document(s) SARS coronavirus 2 RNA [Presence] in Res piratory specimen by MARK with probe detection POSITIVE [facility] This lab was ordered by [facility] a nd reported by [facility]. ID Date Data Source [id number] 04/09/2020 02:48:00 AM EST [facility] Name Value Range Interpretation Code Description Data [place] rce(s) Supporting Document(s) SARS COVID ANTIGEN POSITIVE [facility] This lab was ordered by [facility] a nd reported by [facility]. ID Date Data Source [id number] 04/09/2020 02:46:00 AM EST [facility] Name Value Range Interpretation Code Description Data [place] rce(s) Supporting Document(s) SARS COVID ANTIGEN POSITIVE [facility] This lab was ordered by [facility] a nd reported by [facility]. ID Date Data Source [id number] 03/04/2020 12:09:00 PM EST [facility] Name Value Range Interpretation Code Description Data [place] rce(s) Supporting Document(s) FAZAL DIRECT Negative Negative [facility] Performed at: RN - [facility] [address] [id number] Director: Elsa Garcia MD, Phone: [phone] ID Date Data Source [id number] 03/04/2020 12:05:00 PM EST [facility] Name Value Range Interpretation Code Description Data [place] rce(s) Supporting Document(s) FAZAL Direct Negative Negative [facility] ID Date Data Source [id number] 03/03/2020 08:50:00 AM EST [facility] ADD ON TEST Name Value Range Interpretation Code Description Data [place] rce(s) Supporting Document(s) RHEUMATOID FACTOR SCREEN NEGATIVE NEGATIVE [facility] ID Date Data Source [id number] 03/03/2020 08:37:00 AM EST [facility] ADD ON TEST Name Value Range Interpretation Code Description Data [place] rce(s) Supporting Document(s) FREE T4 1.0 ng/dL 0.76-1.46 [facility] ID Date Data Source [id number] 03/03/2020 08:37:00 AM EST [facility] ADD ON TEST Name Value Range Interpretation Code Description Data [place] rce(s) Supporting Document(s) TSH 0.422 uIU/mL 0.36-3.74 [facility] ID Date Data Source [id number] 03/03/2020 08:11:00 AM EST [facility] ADD ON TEST Name Value Range Interpretation Code Description Data [place] rce(s) Supporting Document(s) C REACTIVE PROTEIN 15.6 mg/L 0.0-3.0 [facility] ID Date Data Source [id number] 03/03/2020 08:11:00 AM EST [facility] ADD ON TEST Name Value Range Interpretation Code Description Data [place] rce(s) Supporting Document(s) GLUCOSE 85 mg/dL 74-106 [facility] BLOOD UREA NITROGEN 11 mg/dL 7-18 [facility] ital CREATININE 0.88 mg/dL 0.6-1.0 [facility] SODIUM 135 mmol/L 136-145 L [facility] POTASSIUM 4.1 mmol/L 3.5-5.1 [facility] CHLORIDE 99 mmol/L 98-107 [facility] CO2 26 mmol/L 21-32 [facility] CALCIUM 8.8 mg/dL 8.5-10.1 [facility] ANION GAP 10.0 mmol/L 5-12 [facility] GLOMERULAR FILTRATION RATE 74 mL/min [facility] GFR IS CALCULATED IN mL/min/1.73m2 ZAYNAB L FUNCTION: >90MILDLY DECREASED: 60-89MILDY TO MODERATELY DECREASED: 45-59 MODERATELY TO SEVERELY DECREASED: 30-44SEVERELY DECREASED: 15-29RENAL FAILURE: <15 AST 32 U/L 15-37 [facility] ALT 32 U/L 12-78 [facility] ALKALINE PHOSPHATASE 65 U/L 46-116 [facility] pital TOTAL BILIRUBIN 0.2 mg/dL 0.2-1.0 [facility] TOTAL PROTEIN 6.9 g/dl 6.4-8.2 [facility] ALBUMIN 3.9 gm/dL 3.4-5.0 [facility] ID Date Data Source [id number] 03/01/2020 05:46:00 PM EST [facility] Name Value Range Interpretation Code Description Data [place] rce(s) Supporting Document(s) CHOLESTEROL 193 mg/dL 0-200 [facility] TRIGLYCERIDES 86 mg/dL 0-150 [facility] LDL CHOLESTEROL 111 mg/dL 0-100 H [facility] HDL CHOLESTEROL 65 mg/dL 40-60 H [facility] CHOL/HDL RATIO 3.0 0.0-5.0 [facility] ID Date Data Source [id number] 02/29/2020 10:40:[address] [facility] Name Value Range Interpretation Code Description Data [place] rce(s) Supporting Document(s) SARS coronavirus [address] [facility] This lab was ordered by [facility] and reported by [facility]. ID Date Data Source [id number] 12/10/2019 11:15:00 AM EDT [address] [id number] NAME: BRUNA LEE#: [id number] PHYSICIAN: PRERNA RIOS MD ADM. DATE: 12/05/19ACCOUNT #: [id number] DISCH. DATE:DISCHARGE SUMMARYIDENTIFICATION: A 34-year-old female with schizoaffective disorder,polysubstance dependence.CHIEF COMPLAINT: "I don't know why I am here."REASON FOR ADMISSION: Post- overdose.HISTORY OF PRESENT ILLNESS: The patient was interviewed in ICU after sheoverdosed. The patient was seen in [facility] for a regularconsultation, she could [...] [place] The last time in our service with [...] ABUSE: None.SOCIAL HISTORY: The patient is from [place], did not finish high school.She was in [...] The patient was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 MAJORMETABOLITES OF DRUGS OF ABUSE. THESE TESTS ARE ONLY ASCREENING AND NOT CONFIRMATORY. CLINICAL CONSIDERATION ANDPROFESSIONAL JUDGMENT MUST BE APPLIED TO ANY DRUG OF ABUSETEST RESULT. ID Date Data Source [id number] 12/04/2019 05:30:00 PM EDT [facility] TSYSORDER [id number] Name Value Range Interpretation Code Description Data [place] rce(s) Supporting Document(s) HCG URINE NEGATIVE NEGATIVE [facility] ID Date Data Source [id number] 12/04/2019 05:39:00 PM EDT [facility] ital TSYSORDER [id number] Name Value Range Interpretation Code Description Data [place] rce(s) Supporting Document(s) URINE COLOR. LIGHT YELLOW [facility] URINE APPEARANCE CLEAR [facility] l URINE GLUCOSE (UA) NEGATIVE mg/dL NEGATIVE [facility] URINE BILIRUBIN NEGATIVE NEGATIVE [facility] URINE KETONE NEGATIVE mg/dL [facility]GATIVE [facility] SPECIFIC GRAVITY,URINE 1.010 1.001-1.035 [facility] URINE BLOOD NEGATIVE NEGATIVE [facility] PH,URINE 7.5 5.0-9.0 [facility] URINE PROTEIN NEGATIVE mg/dL [facility]GATIVE [facility] UROBILINOGEN NORMAL(0.2-1) mg/dL 0-1 [facility] URINE NITRATE NEGATIVE NEGATIVE [facility] URINE LEUKOCYTE ESTERASE NEGATIVE NEGATIVE [facility] ID Date Data Source [id number] 12/04/2019 06:09:00 PM EDT [facility] l Name Value Range Interpretation Code Description Data [place] rce(s) Supporting Document(s) CKMB 1.8 ng/ml 0.0-3.6 [facility] ID Date Data Source [id number] 12/04/2019 04:47:00 PM EDT [facility] Name Value Range Interpretation Code Description Data [place] rce(s) Supporting Document(s) SALICYLATE 3.5 mg/dL 2.8-20.0 [facility] ID Date Data Source [id number] 12/04/2019 04:47:00 PM EDT [facility] Name Value Range Interpretation Code Description Data [place] rce(s) Supporting Document(s) ETHYL ALCOHOL 0.00 % 0-0.01 [facility] ID Date Data Source [id number] 12/04/2019 04:47:[facility] Name Value Range Interpretation Code Description Data [place] rce(s) Supporting Document(s) ACETAMINOPHEN LEVEL < 2.0 mcg/mL 10-30 L [facility] ospital ID Date Data Source [id number] 12/04/2019 04:47:00 PM [facility] l Name Value Range Interpretation Code Description Data [place] rce(s) Supporting Document(s) GLUCOSE 81 mg/dL 74-106 [facility] BLOOD UREA NITROGEN 10 mg/dL 7-18 [facility] ital CREATININE 0.7 mg/dL 0.6-1.0 [facility] SODIUM 139 mmol/L 136-145 [facility] POTASSIUM 4.3 mmol/L 3.5-5.1 [facility] CHLORIDE 102 mmol/L 98-107 [facility] CO2 33 mmol/L 21-32 H [facility] CALCIUM 9.2 mg/dL 8.5-10.1 [facility] ANION GAP 4.0 mmol/L 5-12 L [facility] GLOMERULAR FILTRATION RATE >90 mL/min [facility] GFR IS CALCULATED IN mL/min/1.73m2 ZAYNAB L FUNCTION: >90MILDLY DECREASED: 60-89MILDY TO MODERATELY DECREASED: 45-59 MODERATELY TO SEVERELY DECREASED: 30-44SEVERELY DECREASED: 15-29RENAL FAILURE: <15 AST 40 U/L 15-37 H [facility] ALT 27 U/L 12-78 [facility] ALKALINE PHOSPHATASE 68 U/L 46-116 [facility] pital TOTAL BILIRUBIN 0.3 mg/dL 0.2-1.0 [facility] TOTAL PROTEIN 7.4 g/dl 6.4-8.2 [facility] ALBUMIN 3.9 gm/dL 3.4-5.0 [facility] ID Date Data Source [id number] 12/04/2019 04:46:00 PM [facility]T [facility] [id number] Name Value Range Interpretation Code Description Data [place] rce(s) Supporting Document(s) AMMONIA 39 umol/L 11-32 H [facility] ID Date Data Source [id number] 12/04/2019 04:19:00 PM EDT [facility] T[facility] [id number] Name Value Range Interpretation Code Description Data [place] rce(s) Supporting Document(s) WHITE BLOOD COUNT 9.8 K/mm3 4.0-10.0 [facility] RED BLOOD COUNT 4.11 M/mm3 4.00-5.50 [facility] HEMOGLOBIN 12.3 gm/dL 12.0-16.0 [facility] HEMATOCRIT 37.9 % 36.0-48.8 [facility] MEAN CELL VOLUME 92.2 fl 80-96 [facility] MEAN CORPUSCULAR HEMOGLOBIN 29.9 pg 27.0-31.0 [facility] MEAN CORPUSCULAR HGB CONC 32.5 g/dl 32.0-36.0 [facility] RED CELL DISTRIBUTION WIDTH 13.0 % 10.0-14.5 [facility] PLATELET COUNT 368 K/mm3 172-450 [facility] MEAN PLATELET VOLUME 9.5 fl 9.0-13.0 [facility] pital GRAN % 71.0 % 50-80.0 [facility] IG% 0.2 % 0.0-0.2 [facility] LYMPH % 20.5 % 25.0-50.0 L [facility] MONO % 7.1 % 2.0-10.0 [facility] EOS % 1.0 % 0-5.0 [facility] BASO % 0.2 % 0.0-2.0 [facility] GRAN # 7.0 K/mm3 2.0-8.00 [facility] IG# 0.0 K/mm3 0.0-0.2 [facility] LYMPH # 2.0 K/mm3 1.0-5.0 [facility] MONO # 0.7 K/mm3 0.10-1.20 [facility] EOS # 0.1 K/mm3 0.0-0.5 [facility] BASO # 0.0 K/mm3 0.0-0.2 [facility] ID Date Data Source [id number] 12/11/2019 08:09:00 PM EDT [facility] Name Value Range Interpretation Code Description Data [place] rce(s) Supporting Document(s) LEVETIRACETAM, S <1.0 ug/mL 10.0-40.0 [facility] Verified by repeat analysisThis test was developed and its performance characteristicsdetermined by [facility]. It has not been cleared orapproved by the Food and Drug Administration.Performed at: [address] [id number] Director: Robyn Julio MD, Phone: [phone] ID Date Data Source [id number] 12/11/2019 08:05:00 PM EDT [facility] Name Value Range Interpretation Code Description Data [place] rce(s) Supporting Document(s) Levetiracetam, S 10.0-40.0 Below low normal [facility] p Verified by repeat analysisThis test was developed and its performance characteristicsdetermined by [facility]. It has not been cleared or approvedby the Food and Drug Administration. ID Date Data Source [id number] 12/04/2019 05:04:00 PM EDT [facility] TSYSORDER [id number] Name Value Range Interpretation Code Description Data [place] rce(s) Supporting Document(s) DDIMER 0.74 mg/LFEU 0.19-0.60 H [facility] ID Date Data Source [id number] 12/04/2019 12:00:00 AM EDT [facility] Name Value Range Interpretation Code Description Data [place] rce(s) Supporting Document(s) 2019 Novel Coronavirus RNA [facility] ED This lab was ordered by [facility] L aboratory and reported by [facility] Laboratory. ID Date Data Source [id number] 11/07/2019 12:19:00 AM EDT [facility] 1 OrderSheet [facility] Emergency Department [address] [place] [address] Phone #: ext- [phone] 11/07/2019 00:19 [id number] Sex: F : 1985 Age: 34yWEIGHT:78.9 kg [...] Evonne Hagen R.N., R.N.x1) Jeremie; 2 OrderSheet [facility] Emerg ency Department [address] [place] [address] Phone #: ext- [phone] 11/07/2019 00:19 Patient: BRUNA LEE Sex: F : 1985 Age: 34yGENERAL ORDERSOrder Description Priority Entered Acknowledged Initialed[Electronically signed by Mara Gonzalez R.N. (04:20 11/07/2019)][Electronically signed by Evonne Hagen M.D. (05:23 11/07/2019)][Electronically locked by Mara Gonzalez R.N. (04:20 11/07/2019)] Name Value Range Interpretation Code Description Data [place] rce(s) Supporting Document(s) ID Date Data Source [id number] 11/07/2019 12:19:00 AM EDT [facility] 1 Medication Reconciliation Report [facility] Emergency Department [address] [place] [address] Phone #: ext- [phone] 11/07/2019 00:19 Patient: BRUNA LEE Sex: F [...] rce(s) Supporting Document(s) ID Date Data Source [id number] 11/07/2019 12:19:00 AM EDT [facility] 1 Medication Administration Record [facility] Emergency Department [address] [place] [address] Phone #: ext- [phone] 11/07/2019 00:19 Patient: BRUNA LEE Sex: F : 1985 Age: 34yWeight: 78.9 kgHeight/Length: 60 inBMI: 34ALLERGIES: Penicillins, Sulfa Antibiotics Date/Time Medication Administered Medication OrderedStart IV NS NS IV 1000 mL Bolus: : Bolus [id number] 11/07/2019 Dose: IV Fluids mL (X1)Jovan Maldonado RJayroNJayro Rate: 999 mL/hr---- Dispensed: 1000 mL bagStop Site: #1 left wrist03:55 11/07/2019Mara Gonzalez RJayroNJayroGiven ZOFRAN [IVP] (ONDANSETRON HCL) Zofran 4 mg IVP X 1 dose: 4 mg02:22 11/07/2019 Dose: 4 mg IVP (NOW x1)Jovan Maldonado R.N. Site: #1 left wrist Name Value Range Interpretation Code Description Data [place] rce(s) Supporting Document(s) ID Date Data Source [id number] 11/07/2019 12:19:00 AM EDT [facility] 1 General Instructions [facility] Emergency Department [address] [place] [address] Phone #: ext- [phone] 11/07/2019 00:19 Patient: RBUNA LEE Sex: F : 1985 Age: 34yMild [...] to plan of care. 2 General Instructions [facility] Emergency Department [address] [place] [address] Phone #: ext- [phone] 11/07/2019 00:19 Patient: [...] Tiredness Inability to sleep 3 General Instructions [facility] Emergency Department [address] [place], [place] [address] Phone #: ext- [phone] 11/07/2019 00:19 Patient: [...] help you manage stress. 4 General Instructions [facility] Emergency Department [address] [place] [address] Phone #: ext- [phone] 11/07/2019 00:19 Patient: [...] relieved by rest and mild pain reliever [phone] [employer]. [address] [place] [address]. All rights reserved. This information is not intended as asubstitute for professional medical care. Always follow your healthcare professional's instructions. You have been given the following additional information: Anxiety Reaction(Electronically signed by Evonne Hagen M.D. 11/07/2019 05:23) Name Value Range Interpretation Code Description Data [place] rce(s) Supporting Document(s) ID Date Data Source [id number] 11/07/2019 12:19:00 AM EDT [facility] 1 Clinical Report - Nurses [facility] Emergency Department [address] [place] [address] Phone #: ext- [phone] 11/07/2019 00:19 Patient: BRUNA LEE Sex: F : 1985 Age: 34yTRIAGEHistorian: EMS and patient.Triage time: 00:24 11/07/2019.Chief Complaint: NAUSEA and ("face swelling").Onset. (states that it has been going on all day.). ( states that she has been sleeping a lot and used Molly2 days ago. No Meth in 2 weeks.).Treatment ELECTRICAL INTERN:(Took her normal medications today.). --00:27 11/07/19 Jovan [...] last month. 2 Clinical Report - Nurses [facility] Emergency Department [address] [place] [address] Phone #: ext- [phone] 11/07/2019 00:19 Patient: [...] pump. Allergies 3 Clinical Report - Nurses [facility] Emergency Department [address] [place] [address] Phone #: wip- [phone] 11/07/2019 00:19 Patient: BRUNA LEE Sex: F [...] patient is calm and resting quietly. ( [place] provided. Reassurance given to pt. Lights dimmed. [...] Patient verbalized understanding. Written instructions provided in Hungarian. The patient was discharged by the physician. [...] rce(s) Supporting Document(s) ID Date Data Source [id number] 11/07/2019 12:19:00 AM EDT [facility] 1 Clinical Report - Physicians/Mid Levels [facility] Emergency Department [address] [place] [address] Phone #: ext- [phone] 11/07/2019 00:19 Patient: BRUNA LEE Sex: F [...] no Meth in over 2 weeks; woke ELECTRICAL INTERN w face swelling and nausea, no other Sx, no withdrawal, ROS otw neg.; pt known [facility] for multiple ER visits for different [...] Repair. 2 Clinical Report - Physicians/Mid Levels [facility] Emergency Department [address] [place] [address] Phone #: ext- [phone] 11/07/2019 00:19 Patient: [...] (Reference) 3 Clinical Report - Physicians/Mid Levels [facility] Emergency Department [address] [place] [address] Phone #: ext- [phone] 11/07/2019 00:19 Patient: [...] Male GFR Interprentation 20-49 yrs >60 mL/min Wj[place]72-23 yrs >56 mL/min Normal 60- 69 yrs >49 mL/min Normal 70-79yrs>42 mL/min Normal 80 and above >35 mL/min Normal Female GFRInterpretation 20-39 yrs >60 mL/min Normal 40-49 yrs >58 mL/minNormal 50-59 yrs >51 mL/min Normal 60-69 yrs >45 mL/min Normal 4 Clinical Report - Physicians/Mid Levels [facility] Emergency Department [address] [place] [address] Phone #: ext- [phone] 11/07/2019 00:19 Patient: BRUNA LEE Sex: F : 1985 Age: 75m28-17 yrs >39 mL/min Normal 80 and above >32 mL/min NormalBeta-HCG, Qual Serum: (JENN: 11/07/2019 02:15) ( [facility] 11/07/2019 03:20) Final results Test Result Flag Units (Reference) HCG SERUM QUAL NEGATIVE (NORMAL: NEGAT HCG SERUM QL REENTER NEGATIVE (NORMAL: NEGAT { KIT LOT # [id number] ){ KIT EXP [id number] ){ PROCEDURAL CONTROL VALID)CPK: (JENN: 11/07/2019 02:15) ( [facility] 11/07/2019 03:15) Final results Test Result Flag Units (Reference) CPK 313 H U/L (30 - 170)Drug Screen-Urine: (JENN: 11/07/2019 02:00) ( [facility] 11/07/2019 03:15) [...] PRESUMPTIVE POSITIVE CONFIRMATION WILL BE PERFORMED AT [facility].Urinalysis: (JENN: 11/07/2019 02:00) ( [facility] [...] Indicate 5 Clinical Report - Physicians/Mid Levels [facility] Emergency Department [address] [place] [address] Phone #: ext- [phone] 11/07/2019 00:19 Patient: [...] was requested by: Evonne Hagen Reference #: [id number] Others' Prescriptions Patient Name: Bruna LeeBirth Date: 1985 Address: [address] [place], [place] [address]Sex: Female Rx Written Rx Dispensed Drug Quantity [...] table. 6 Clinical Report - Physicians/Mid Levels [facility] Emergency Department [address] [place] [address] Phone #: ext- [phone] 11/07/2019 00:19 Patient: [...] Oral. 7 Clinical Report - Physicians/Mid Levels [facility] Emergency Department [address] [place] [address] Phone #: ext- [phone] 11/07/2019 00:19 Patient: BRUNA LEE [facility]#: [id number] Sex: F : 1985 Age: 34y RisperDAL [...] rce(s) Supporting Document(s) ID Date Data Source [id number] 11/07/2019 03:20:00 AM EDT [facility] Name Value Range Interpretation Code Description Data [place] rce(s) Supporting Document(s) HCG SERUM QUAL NEGATIVE NORMAL: NEGATIVE [facility] HCG SERUM QL REENTER NEGATIVE NORMAL: NEGATIVE [facility] { KIT LOT # [id number] ){ KIT EXP DATE 12-08-20 ){ PROCEDURAL CONTROL VALID ) ID Date Data Source [id number] 11/07/2019 03:15:00 AM EDT [facility] Name Value Range Interpretation Code Description Data [place] rce(s) Supporting Document(s) Creatine kinase [Enzymatic activity/volume] in Serum or Plasma 3 13 U/L 30 - 170 H [facility] ID Date Data Source [id number] 11/07/2019 03:14:00 AM EDT [facility] Name Value Range Interpretation Code Description Data [place] rce(s) Supporting Document(s) COMPREHENSIVE METABOLIC PANEL [facility] COMPREHENSIVE METABOLIC PANEL Sodium [Moles/volume] in Serum or Plasma 140 mEq/L 134 - 153 [facility] Potassium [Moles/volume] in Serum or Plasma 3.8 mEq/L 3.6 - 5.0 [facility] Chloride [Moles/volume] in Serum or Plasma 100 mEq/L 98 - 107 [facility] Carbon dioxide, total [Moles/volume] in Serum or Plasma 30 MEQ/L 22 - 30 [facility] Glucose [Mass/volume] in Serum or Plasma 98 MG/DL 65 - 110 [facility] BUN 14 MG/DL 7 - 21 [facility] Creatinine [Mass/volume] in Serum or Plasma 0.7 MG/DL 0.7 - 1.5 [facility] BUN/CREAT 20 8 - 27 [facility] Protein [Mass/volume] in Serum or Plasma 5.9 G/DL 6.3 - 8.2 L [facility] Albumin [Mass/volume] in Serum or Plasma 3.6 G/DL 3.9 - 5.0 L [facility] Globulin [Mass/volume] in Serum by calculation 2.3 GM/DL 2.4 - 3.2 L [facility] A/G RATIO 1.6 0.8 - 2.0 [facility] Calcium [Mass/volume] in Serum or Plasma 9.2 MG/DL 8.4 - 10.2 [facility] Bilirubin.total [Mass/volume] in Serum or Plasma <0.7 MG/DL 0.2 - 1.3 [facility] Alkaline phosphatase [Enzymatic activity/volume] in Serum or Plasma 62 U/L 38 - 126 [facility] Aspartate aminotransferase [Enzymatic activity/volume] in Serum or Plasma 302 U/L 5 - 40 H [facility] Alanine aminotransferase [Enzymatic activity/volume] in Seru m or Plasma 125 U/L 7 - 56 H [facility] Anion gap 3 in Serum or Plasma 10.0 mmol/L 8.0 - 16.0 [facility] AGE 34 yrs [facility] al NON-AA GFR >60 mL/min [facility] ital AFR AMER GFR >60 mL/min [facility] spital Male GFR In terprentation [...] >32 mL/min Normal ID Date Data Source [id number] 11/07/2019 02:27:00 AM EDT [facility] Name Value Range Interpretation Code Description Data [place] rce(s) Supporting Document(s) CBC W/AUTOMATED DIFF [facility] COMPLETE BLOOD COUNT Leukocytes [#/volume] in Blood by Automated count 8.3 10^3/uL 4.2 - 1 1.0 [facility] Erythrocytes [#/volume] in Blood by Automated count 3.87 10^6/uL 4. 20 - 5.40 L [facility] Hemoglobin [Mass/volume] in Blood 11.6 g/dL 12.0 - 16.0 L [facility] Hematocrit [Volume Fraction] of Blood by Automated count 36.0 % 3 7.0 - 47.0 L [facility] Erythrocyte mean corpuscular volume [Entitic volume] by Auto mated count 93.0 fL 81.0 - 101 [facility] Erythrocyte mean corpuscular hemoglobin [Entitic mass] by Automated count 30.0 pg 27.0 - 34.0 [facility] Erythrocyte mean corpuscular hemoglobin concentration [Mass/volume] by Automated count 32.2 g/dL 31.0 - 36.0 [facility] Erythrocyte distribution width [Ratio] by Automated count 13.3 % 11.5 - 14.5 [facility] Platelets [#/volume] in Blood by Automated count 271 10^3/uL 150 - 45 0 [facility] Platelet mean volume [Entitic volume] in Blood by Automated count 9.5 fL 7.4 - 10.4 [facility] Neutrophils/100 leukocytes in Blood by Automated count 82.6 % 37. 0 - 80.0 H [facility] Lymphocytes/100 leukocytes in Blood by Manual count 14.3 % 25.0 - 40.0 L [facility] Monocytes/100 leukocytes in Blood by Automated count 1.6 % 3.0 - 8.0 L [facility] Eosinophils/100 leukocytes in Blood by Automated count 0.8 % 0.0 - 7.0 [facility] Basophils/100 leukocytes in Blood by Automated count 0.2 % 0.0 - 2.5 [facility] %IG 0.5 % 0.0 - 0.0 [facility] %NRBC 0.0 % 0.0 - 0.0 [facility] Neutrophils [#/volume] in Blood by Automated count 6.85 10^3/uL 2.00 - 6.90 [facility] Lymphocytes [#/volume] in Blood by Automated count 1.19 10^3/uL 0.60 - 3.40 [facility] Monocytes [#/volume] in Blood by Automated count 0.13 10^3/uL 0.00 - 0.90 [facility] Eosinophils [#/volume] in Blood by Automated count 0.07 10^3/uL 0.00 - 0.70 [facility] Basophils [#/volume] in Blood by Automated count 0.02 10^3/uL 0.00 - 0.20 [facility] #IG 0.04 10^3/uL 0.00 - 0.10 [facility] ospital #NRBC 0.00 10^3/uL 0.00 - 0.00 [facility] ospital MANUAL DIFF NOT INDICATED [facility] RBC MORPH NOT INDICATED [facility] spital ID Date Data Source [id number] 11/07/2019 03:14:00 AM EDT [facility] Name Value Range Interpretation Code Description Data [place] rce(s) Supporting Document(s) DRUG SCREEN URINE [facility] URINE DRUG SCREEN Amphetamine [Presence] in Urine by Screen method PRESUMP POS ZAYNAB L: NEGATIVE [facility] BARBITURATES NEGATIVE NORMAL: NEGATIVE [facility] BENZO NEGATIVE NORMAL: NEGATIVE [facility] COCAINE NEGATIVE NORMAL: NEGATIVE [facility] Tetrahydrocannabinol [Presence] in Urine NEGATIVE NORMAL: NEGATIVE [facility] OPIATES NEGATIVE NORMAL: NEGATIVE [facility] Phencyclidine [Presence] in Urine by Screen method NEGATIVE NOR MAL: NEGATIVE [facility] \\BLDo\\URINE DRUG SCR EEN INTERPRETATION\\BLDx\\ THE CUTOFFF LEVELS FOR DETECTION ARE FOLLOWS: AMPHETAMINES 1000 ng/ml BARBITUARATES 200 ng/ml BENZODIAZEPINES 100 ng/ml THC 50 ng/ml PHENCYCLIDINE 25 ng/ml OPIATES 300 ng/ml COCAINE 300 ng/ml ALL POSITIVES ARE CONSIDERED PRESUMPTIVE POSITIVE CONFIRMATION WILL BE PERFORMED AT PHYSICIAN REQUEST. ID Date Data Source [id number] 11/07/2019 02:27:00 AM EDT [facility] Name Value Range Interpretation Code Description Data [place] rce(s) Supporting Document(s) URINALYSIS [facility] URINALYSIS SOURCE R [facility] COLOR yellow NORMAL: Yellow [facility] CLARITY clear NORMAL: Clear [facility] Specific gravity of Urine by Test strip 1.020 1.001 - 1.030 [facility] pH 6 5 - [facility] Gl[facility] [Mass/volume] in Urine by Test strip NORM [facility] Bilirubin.total [Presence] in Urine by Test strip NEG NORMAL: Negative [facility] Ketones [Presence] in Urine by Test strip NEG NORMAL: Negative [facility] Protein [Mass/volume] in Urine by Test strip NEG NORMAL: Negat [facility] Nitrite [Presence] in Urine by Test strip NEG NORMAL: Negative [facility] BLOOD NEG NORMAL: Negative [facility] Leukocyte esterase [Presence] in Urine by Test strip NEG ZAYNAB L: Negative [facility] Urobilinogen [Mass/volume] in Urine by Test strip 1 less kenna n 1.0 mg/dL [facility] MICROSCOPIC Not Indicate [facility] ID Date Data Source [id number] 10/30/2019 10:27:00 AM EDT [facility] Name Value Range Interpretation Code Description Data [place] rce(s) Supporting Document(s) BG FASTING 132 mg/dL 70-100 H [facility] TSH 0.526 microintl units/mL 0.358-3.740 N [facility] ID Date Data Source [id number] 10/30/2019 10:27:00 AM EDT [facility] Name Value Range Interpretation Code Description Data [place] rce(s) Supporting Document(s) HCT 37.6 % 36.0-47.0 N [facility] HGB 11.8 g/dL 12.0-15.5 L [facility] MCH 31.4 G/DL pg 32.0-36.5 L [facility] MCHC 29.9 PG % 27.0-33.0 N [facility] PLATELETS 209 10 10*3/mm3 150-450 N [facility] RBC 3.94 10 10*6/mm3 4.00-5.40 L [facility] RDW 12.6 % 11.5-14.5 N [facility] WBC TOTAL 4.5 4.0-10.0 N [facility] Procedure Social History Code Duration Value Status Description Data Source(s ) 11/05/2020 12:00:00 AM EDT Heavy cigarette smoker (20- 39 cigs/day) completed Heavy cigarette smoker (20-39 cigs/day) [facility] ([facility]) Smoking 11/05/2020 12:00:00 AM EDT Heavy tobacco smoker comple keven Heavy tobacco smoker [facility] ([facility]) Alcohol intake 09/24/2020 12:00:00 AM EDT Ex-drinker (finding) comp leted Ex- drinker (finding) [facility] Tobacco use and exposure 09/24/2020 12:00:00 AM EDT Never used co mpleted Never used [facility] Cigarettes smoked current (pack per day) - Reported 09/25/19 12:00:00 AM EDT UNK completed [facility] Smoking 09/24/2020 12:00:00 AM EDT Smoker, current status unkn own completed Smoker, current status unknown [facility] Alcohol intake 08/06/2020 12:00:00 AM EDT Ex-drinker (finding) comp leted Ex- drinker (finding) [facility] Smoking 07/22/2020 12:00:00 AM EDT Current Smoker completed Curre nt Smoker eCW1 ([facility]) Smoking 07/22/2020 12:00:00 AM EDT Current Smoker completed Curre nt Smoker eCW1 ([facility]) Smoking 07/22/2020 12:00:00 AM EDT Current Smoker completed Curre nt Smoker eCW1 ([facility]) Smoking 06/14/2020 12:00:00 AM EDT Current Smoker completed Curre nt Smoker eCW1 ([facility]) Smoking 06/14/2020 12:00:00 AM EDT Current Smoker completed Curre nt Smoker eCW1 ([facility]) Smoking 06/14/2020 12:00:00 AM EDT Current Smoker completed Curre nt Smoker eCW1 ([facility]) Smoking 06/14/2020 12:00:00 AM EDT Current Smoker completed Curre nt Smoker eCW1 ([facility]) Smoking 03/30/2020 12:00:00 AM EST Current Smoker completed Curre nt Smoker eCW1 ([facility]) Smoking 03/30/2020 12:00:00 AM EST Current Smoker completed Curre nt Smoker eCW1 ([facility]) Smoking 03/30/2020 12:00:00 AM EST Current Smoker completed Curre nt Smoker eCW1 ([facility]) Smoking 03/30/2020 12:00:00 AM EST Current Smoker completed Curre nt Smoker eCW1 ([facility]) Smoking 03/30/2020 12:00:00 AM EST Current Smoker completed Curre nt Smoker eCW1 ([facility]) Smoking 03/30/2020 12:00:00 AM EST Current Smoker completed Curre nt Smoker eCW1 ([facility]) Smoking 03/30/2020 12:00:00 AM EST Current Smoker completed Curre nt Smoker eCW1 ([facility]) Smoking 03/30/2020 12:00:00 AM EST Current Smoker completed Curre nt Smoker eCW1 ([facility]) Smoking 03/30/2020 12:00:00 AM EST Current Smoker completed Curre nt Smoker eCW1 ([facility]) Smoking 03/30/2020 12:00:00 AM EST Current Smoker completed Curre nt Smoker eCW1 ([facility]) Smoking 03/30/2020 12:00:00 AM EST Current Smoker completed Curre nt Smoker eCW1 ([facility]) Smoking 03/30/2020 12:00:00 AM EST Current Smoker completed Curre nt Smoker eCW1 ([facility]) Smoking 03/30/2020 12:00:00 AM EST Current Smoker completed Curre nt Smoker eCW1 ([facility]) Smoking 03/30/2020 12:00:00 AM EST Current Smoker completed Curre nt Smoker eCW1 ([facility]) Smoking 03/30/2020 12:00:00 AM EST Current Smoker completed Curre nt Smoker eCW1 ([facility]) Smoking 03/30/2020 12:00:00 AM EST Current Smoker completed Curre nt Smoker eCW1 ([facility]) Smoking 03/30/2020 12:00:00 AM EST Current Smoker completed Curre nt Smoker eCW1 ([facility]) Smoking 03/01/2020 12:00:00 AM EST Current Smoker completed Curre nt Smoker eCW1 ([facility]) Smoking 03/01/2020 12:00:00 AM EST Current Smoker completed Curre nt Smoker eCW1 ([facility]) Smoking 03/01/2020 12:00:00 AM EST Current Smoker completed Curre nt Smoker eCW1 ([facility]) Smoking 02/18/2020 12:00:00 AM EST Current Smoker completed Curre nt Smoker eCW1 ([facility]) Smoking 12/24/2019 12:00:00 AM EDT Current Smoker completed Curre nt Smoker eCW1 ([facility]) Smoking 12/24/2019 12:00:00 AM EDT Current Smoker completed Curre nt Smoker eCW1 ([facility]) Smoking 12/24/2019 12:00:00 AM EDT Current Smoker completed Curre nt Smoker eCW1 ([facility]) Smoking 12/24/2019 12:00:00 AM EDT Current Smoker completed Curre nt Smoker eCW1 ([facility]) Smoking 12/24/2019 12:00:00 AM EDT Current Smoker completed Curre nt Smoker eCW1 ([facility]) Smoking 12/24/2019 12:00:00 AM EDT Current Smoker completed Curre nt Smoker eCW1 ([facility]) Smoking 12/24/2019 12:00:00 AM EDT Current Smoker completed Curre nt Smoker eCW1 ([facility]) Smoking 10/31/2019 12:00:00 AM EDT Current Smoker completed Curre nt Smoker eCW1 ([facility]) Smoking 10/31/2019 12:00:00 AM EDT Current Smoker completed Curre nt Smoker eCW1 ([facility]) Smoking 10/31/2019 12:00:00 AM EDT Current Smoker completed Curre nt Smoker eCW1 ([facility]) Vital Signs ID Date Data Source UNK Name Value Range Interpretation Code Description Data Source(s) Diastolic blood pressure 56 mm[Hg] 56 mm[Hg] MATIAS ([facility]) Body height 61 [in_i] 61 [in_i] MATIAS ([facility]) Body mass index (BMI) [Ratio] 31.5 kg/m2 31.5 k g/m2 MATIAS ([facility]) Systolic blood pressure 83 mm[Hg] 83 mm[Hg] A THENA ([facility]) Body weight 2664 [oz_av] 2664 [oz_av] MATIAS ([facility]) Body height 152.40 cm 152.40 cm [facility] ([facility]) Systolic blood pressure 116 mm[Hg] 116 mm[Hg] N [facility]Gen ([facility]) Diastolic blood pressure 76 mm[Hg] 76 mm[Hg] [facility] ([facility]) Body mass index (BMI) [Ratio] 31.87 kg/m2 Overweight 31.87 kg/m2 [facility] ([facility]) Body weight 74.026 kg 74.026 kg [facility] ([facility]) Body height 60.0 [in_i] 60.0 [in_i] eCW1 ([facility]) Body weight 183.0 [lb_av] 183.0 [lb_av] eCW1 ([facility]) Body mass index (BMI) [Ratio] 35.74 kg/m2 35.74 kg/m2 eCW1 ([facility]) Heart rate 119 /min 119 /min eCW1 ([facility]) Respiratory rate 18 /min 18 /min eCW1 ([facility]note 2]) Oxygen saturation in Arterial blood by Pulse oximetry 98 % 98 % eCW1 ([facility]) Body height 60 [in_i] 60 [in_i] eCW1 ([facility]) Body weight 180.6 [lb_av] 180.6 [lb_av] eCW1 ([facility]) Body mass index (BMI) [Ratio] 35.27 kg/m2 35.27 kg/m2 eCW1 ([facility]) Heart rate 93 /min 93 /min eCW1 ([facility]) Respiratory rate 18 /min 18 /min eCW1 ([facility] [place]note 2]) Oxygen saturation in Arterial blood by Pulse oximetry 99 % 99 % eCW1 ([facility]) Body height 60 [in_i] 60 [in_i] eCW1 ([facility]) Body weight 186.8 [lb_av] 186.8 [lb_av] eCW1 ([facility]) Body mass index (BMI) [Ratio] 36.48 kg/m2 36.48 kg/m2 eCW1 ([facility]) Heart rate 89 /min 89 /min eCW1 ([facility]) Respiratory rate 18 /min 18 /min eCW1 ([facility] [place][note 2]) Oxygen saturation in Arterial blood by Pulse oximetry 97 % 97 % eCW1 ([facility]) Body height 60 [in_i] 60 [in_i] eCW1 ([facility]) Body weight 164.4 [lb_av] 164.4 [lb_av] eCW1 ([facility]) Body mass index (BMI) [Ratio] 32.10 kg/m2 32.10 kg/m2 eCW1 ([facility]) Body temperature 98.0 [degF] 98.0 [degF] eCW1 ( [facility]) Heart rate 86 /min 86 /min eCW1 ([facility]) Respiratory rate 18 /min 18 /min eCW1 ([facility] [place]note 2]) Oxygen saturation in Arterial blood by Pulse oximetry 98 % 98 % eCW1 ([facility]) Body height 60 [in_i] 60 [in_i] eCW1 ([facility]) Body weight 157.2 [lb_av] 157.2 [lb_av] eCW1 ([facility]) Body mass index (BMI) [Ratio] 30.70 kg/m2 30.70 kg/m2 eCW1 ([facility]) Body temperature 98.7 [degF] 98.7 [degF] eCW1 ( [facility]) Heart rate 100 /min 100 /min eCW1 ([facility]) Respiratory rate 18 /min 18 /min eCW1 ([facility] [place][note 2]) Oxygen saturation in Arterial blood by Pulse oximetry 99 % 99 % eCW1 ([facility]) ID Date Data Source [id number] 10/18/2020 09:45:12 AM EDT [facility] Name Value Range Interpretation Code Description Data Source(s) TRANSFER FROM [facility] ID Date Data Source [id number] 08/27/2020 04:17:02 PM EDT [facility] Name Value Range Interpretation Code Description Data Source(s) TRANSFER FROM [facility] ID Date Data Source [id number] 08/17/2020 03:58:41 PM EDT [facility] Name Value Range Interpretation Code Description Data Source(s) TRANSFER FROM [facility] ID Date Data Source [id number] 12/26/2019 01:56:00 PM EDT [facility] Name Value Range Interpretation Code Description Data Source(s) WEIGHT 72.3 kilos 72.3 kilos [facility] HEIGHT 152.4 centimeters 152.4 centimeters [facility] WEIGHT 75 kilos 75 kilos [facility] HEIGHT 152.4 centimeters 152.4 centimeters [facility] ID Date Data Source [id number] 12/10/2019 06:07:00 AM EDT [facility] Name Value Range Interpretation Code Description Data Source(s) WEIGHT 68 kilos 68 kilos [facility] HEIGHT 152.4 centimeters 152.4 centimeters [facility] WEIGHT 68.4 kilos 68.4 kilos [facility] HEIGHT 152.4 centimeters 152.4 centimeters [facility] ID Date Data Source [id number] [facility] Name Value Range Interpretation Code Description Data Source(s) WEIGHT 75 kilos 75 kilos [facility] HEIGHT 152.4 centimeters 152.4 centimeters [facility] ID Date Data Source [id number] 12/08/2019 01:43:00 PM EDT [facility]ames Name Value Range Interpretation Code Description Data Source(s) WEIGHT 74 kilos 74 kilos [facility] HEIGHT 160.02 centimeters 160.02 centimeter [facility] Patient Treatment Plan of Care Planned Activity Planned Date Details Description Data Source (s) Citalopram 10 MG Oral Tablet 09/30/2020 12:00:00 AM [facility] Levetiracetam 1000 MG Oral Tablet 09/29/2020 12:00:00 AM [facility] gabapentin 600 MG Oral Tablet 09/29/2020 12:00:00 AM [facility] Chlorpromazine hydrochloride 100 MG Oral Tablet 09/29/2020 12:00:00 AM [facility] Magnesium Hydroxide 80 MG/ML Oral Suspension 09/13/2020 08:49:03 AM [facility] sennosides, SKILLED NURSING 8.6 MG Oral Tablet 09/13/2020 08:49:03 AM [facility] Docusate Sodium 100 MG Oral Capsule 09/13/2020 08:49:03 AM [facility] Bisacodyl 10 MG Rectal Suppository 09/13/2020 08:49:03 AM [facility] Buprenorphine 8 MG / Naloxone 2 MG Oral Strip 08/18/2020 12:00:00 A M [facility] Diphenhydramine Hydrochloride 25 MG Oral Capsule 08/17/2020 10:11:0 1 AM [facility] Asenapine 10 MG Sublingual Tablet 08/17/2020 12:00:00 AM [facility] benztropine mesylate 1 MG Oral Tablet 08/17/2020 12:00:00 AM [facility] gabapentin 300 MG Oral Capsule 08/17/2020 12:00:00 AM [facility] Diphenhydramine Hydrochloride 25 MG Oral Capsule 08/17/2020 12:00:0 0 AM [facility] Buprenorphine 8 MG / Naloxone 2 MG Sublingual Tablet 12:00:00 AM [facility] Clonidine Hydrochloride 0.2 MG Oral Tablet 08/17/2020 12:00:00 AM E DT [facility] Aluminum Hydroxide 40 MG/ML / Magnesium Hydroxide 40 MG/ML / Simethicone 4 MG/ML Oral Suspension [facility] MG/ML Oral Suspension 08/06/2020 07:39:11 PM [facility] gabapentin 600 MG Oral Tablet 07/17/2020 12:00:00 AM [facility] Doxepin Hydrochloride 25 MG Oral Capsule 03/09/2020 12:00:00 AM EST eCW1 ([facility]) Doxepin Hydrochloride 25 MG Oral Capsule 03/09/2020 12:00:00 AM EST eCW1 ([facility]) Doxepin Hydrochloride 25 MG Oral Capsule 03/09/2020 12:00:00 AM EST eCW1 ([facility]) Clonidine Hydrochloride 0.2 MG Oral Tablet 12/24/2019 12:00:00 AM E DT eCW1 ([facility]) Clonidine Hydrochloride 0.2 MG Oral Tablet 12/24/2019 12:00:00 AM E DT eCW1 ([facility]) Clonidine Hydrochloride 0.2 MG Oral Tablet 12/24/2019 12:00:00 AM E DT eCW1 ([facility]) Clonidine Hydrochloride 0.2 MG Oral Tablet 12/24/2019 12:00:00 AM E DT eCW1 ([facility]) Clonidine Hydrochloride 0.2 MG Oral Tablet 12/24/2019 12:00:00 AM E DT eCW1 ([facility]) Clonidine Hydrochloride 0.2 MG Oral Tablet 12/24/2019 12:00:00 AM E DT eCW1 ([facility]) Clonidine Hydrochloride 0.2 MG Oral Tablet 12/24/2019 12:00:00 AM E DT eCW1 ([facility]) lisdexamfetamine dimesylate 50 MG Oral Capsule [Vyvans e] 11/04/2019 12:00:00 AM EDT eCW1 ([facility]) Clonazepam 0.5 MG Oral Tablet 11/04/2019 12:00:00 AM EDT eCW1 ([facility]) Citalopram 20 MG Oral Tablet [Celexa] 11/04/2019 12:00:00 AM EDT eCW1 ([facility]) Sumatriptan 25 MG Oral Tablet MATIAS ([facility]) Buprenorphine 12 MG / Naloxone 3 MG Oral Strip [Suboxone] [place] ([facility]) benztropine mesylate 1 MG Oral Tablet [facility] Clonidine Hydrochloride 0.2 MG Oral Tablet [facility] Levetiracetam 1000 MG Oral Tablet [facility] Lurasidone Hydrochloride 40 MG Oral Tablet [facility] Trazodone Hydrochloride 50 MG Oral Tablet [facility] gabapentin 300 MG Oral Capsule [facility] 24 HR Nicotine 0.875 MG/HR Transdermal Patch [facility]
[2020-12-27 15:15] VITALS: BP 118/76
[2020-12-27] MEDS: BENZTROPINE 1 MG TAB PO PRN (15:24)
[2020-12-27] MEDS: OLANZapine ORAL DISINTEGRATING TAB 5MG PO PRN (15:24)
[2020-12-27 15:52] VITALS: BP 118/76
[2020-12-27] MEDS: GABAPENTIN 400MG CAP PO SCH ×2 (16:12→20:02)
[2020-12-27] MEDS: ALBUTEROL 90 MCG/ACT 8GM HFA INHALER INH PRN (17:44)
[2020-12-27] MEDS: traZODone 50 MG TAB PO PRN (20:02)
[2020-12-27] MEDS: levETIRAcetam 250MG TABLET (KEPPRA) PO SCH (20:02)
[2020-12-28 07:04] VITALS: BP 117/64
[2020-12-28] MEDS: levETIRAcetam 250MG TABLET (KEPPRA) PO SCH ×2 (09:13→20:02)
[2020-12-28] MEDS: GABAPENTIN 400MG CAP PO SCH ×3 (09:13→20:01)
[2020-12-28] MEDS: ESCITALOPRAM OXALATE 10 MG TAB (LEXAPRO) PO SCH (09:13)
[2020-12-28] MEDS: METHADONE 10 MG TAB (S0109) PO SCH (09:14)
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
--- NOTE | 2020-12-28 12:02 | HPEPDOC ---
[facility] Medical History & Physical Date of Admission Dec 27, 2020 Date of Service: Dec 28, 2020 Attending Physician: Em Koo MD History and Physical MEDICAL H&P HISTORY OF PRESENT ILLNESS: Patient is a 35 y/o F with schizoaffective disorder, depression/anxiety with suicidal ideation who was admitted to [facility] with chief diagnosis of schizoaffective disorder. According to the patient she has been having increased feelings of anxiety, mood swings including increased depression and suicidal thoughts with a plan to jump off a bridge. The patient states she has not been taking her medications and blames outpatient [facility], as she says they have not refilled her medications recently. She's had multiple family stressors at home including she stating not being able to see her niece. She denies illicit drug use. She admits to hearing voices at times but no visual hallucinations. She denies appetite changes and states T and drink well. She does not sleep well at home. Other complaints include increased nasal congestion, postnasal drip, sore throat and some right ear pain. On evaluation there did not seem to be any concerning findings aside from a erythematous throat without plaques. The patient denied chest pain, shortness of breath, fevers, chills, diarrhea, recent illnesses. She also states that her left foot has severe pain when applying weight and states that she feels that she "fractured it" while she was at home status post small trauma. She denies anything falling on the foot or twisting her ankle. REVIEW OF SYSTEMS: CONSTITUTIONAL: Denies any fever or chills. ENT: Reports sore throat from screaming. RESPIRATORY: Denies shortness of breath. Denies cough. CARDIOVASCULAR: Denies chest pain. GASTROINTESTINAL: Denies abdominal pain. Denies diarrhea. GENITOURINARY: Denies dysuria. CUTANEOUS: Denies rashes. HEMATOLOGICAL: Reports having bruises from falling NEUROLOGICAL: Reports neuropathy. PSYCHOLOGICAL: Denies anxiety. Denies depression. PAST MEDICAL HISTORY: 1. Depression/anxiety with history of suicidal ideation 2. History of polysubstance abuse 3. Hepatitis C 4. Migraine headaches 5. Seizure disorder 6. History of COVID-19 on March 2020 PAST SURGICAL HISTORY: 1. Hernia repair SOCIAL HISTORY: Tobacco use: Current smoker 2ppd Denies alcohol abuse Denies currently use of iliicit drugs Currently Homeless Follows with [facility] FAMILY HISTORY: Father: History of cirrhosis, alive Mother: History of lupus, alive ALLERGIES: Please see below. HOME MEDICATIONS: Please see below. PHYSICAL EXAMINATION: VITAL SIGNS: Please see below GENERAL: Comfortable, in no apparent distress. HEENT: Sclera clear. RESPIRATORY: Lungs clear to auscultation bilaterally, no rales, wheeze or rhonchi. CARDIOVASCULAR: Regular rate and rhythm. ABDOMEN: Soft, nontender, no guarding or rebound tenderness. Normal bowel sounds. MUSCLE SKELETAL: No pitting edema NEUROLOGICAL: Difficult to assess due to patient's lethargy PSYCHOLOGICAL: Difficult to assess due to patient's lethargy LABORATORY DATA: See below. IMAGING: None MICROBIOLOGY: Please see below. ASSESSMENT: 35-year-old female admitted for schizoaffective disorder, suicidal ideation. PLAN: Schizoaffective disorder -Plan per psychiatry team Depression/anxiety with suicidal ideation -Plan per psychiatry team Sinusitis -ceftin 5 days Left foot pain rule out sprain/drains/questionable fracture less likely -X-ray left lower extremity, follow-up results -Methadone Opiate use disorder -Continue with home methadone Neuropathic pain Continue gabapentin History of seizure disorder Continue Keppra History of migraines Continue sumatriptan as needed DISPOSITION: Thank you kindly for this consult. Will follow up with the above testing. At this time will sign off but if we are needed again please do not hesitate to call at any time. Vital Signs Vital Signs Date Time Temp Pulse Resp B/P (MAP) Pulse Ox O2 Delivery O2 Flow Rate FiO2 12/28/20 07:04 97.6 66 16 117/64 (81) 96 Room Air Home Medications Scheduled Escitalopram Oxalate (Lexapro) 10 Mg Tablet, 10 MG PO DAILY Gabapentin (Gabapentin) 800 Mg Tablet, 800 MG PO TID Levetiracetam (Keppra) 1,000 Mg Tablet, 1,000 MG PO BID Methadone HCl (Methadone HCl) 10 Mg/1 Ml Oral.conc, 100 MG PO DAILY for substance abuse Scheduled PRN Albuterol Sulfate (Albuterol Sulfate Hfa) 8.5 Gm Hfa.aer.ad, 2 PUFFS INH Q4-6HP PRN for SHORTNESS OF BREATH Clonidine HCl (Clonidine HCl) 0.2 Mg Tablet, 0.2 MG PO TID PRN for ANXIETY Sumatriptan Succinate (Sumatriptan Succinate) 25 Mg Tablet, 25 MG PO DAILY PRN for MIGRAINE Miscellaneous Medications [Med Note] CONFIRMED METHADONE WITH VONNIE [facility] 12/27 Allergies Coded Allergies: Penicillins (Verified Allergy, Mild, Hives, 11/20/20) sulfamethoxazole (Verified Allergy, Mild, Blisters, 11/20/20) trimethoprim (Verified Allergy, Mild, Blisters, 11/20/20) dextroamphetamine (Verified Allergy, Unknown, 11/20/20) haloperidol (Verified Allergy, Unknown, 11/20/20) olanzapine (Verified Allergy, Unknown, 11/20/20) ziprasidone (Verified Allergy, Unknown, 11/20/20) A-FIB/CHADSVASC A-FIB History Current/History of A-Fib/PAF?: No Current PO Anticoag Therapy: No Age/Risk Factor Scoring CHADSVASC: CHADSVASC Response (Comments) Value Age Risk Factor Age < 65 years old 0 Gender Risk Factor Female 1 Hx of CHF No 0 Hx of HTN No 0 Hx of Stroke/TIA/or VTE No 0 Hx of Diabetes No 0 Hx of Vascular Disease No 0 Total 1 Treatment Treatment ordered: NONE Other anticoagulant ordered: none Em Koo MD Dec 28, 2020 12:02
[2020-12-28] MEDS: CEFDINIR 300 MG CAP (OMNICEF) PO SCH ×2 (13:33→20:02)
--- NOTE | 2020-12-28 16:10 | REP ---
INDICATION: r/o fx of left foot. COMPARISON: None. FINDINGS: The joint spaces are symmetric and relatively well maintained. There is no evidence of acute fracture or destructive osseous lesion. 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 IMPRESSION: There is no acute osseous abnormality. 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 <Electronically signed by Matias Oh > 12/28/20 0427
[2020-12-28 19:03] VITALS: BP 131/92
[2020-12-28] MEDS: traZODone 50 MG TAB PO PRN (20:01)
[2020-12-28] MEDS: OLANZapine ORAL DISINTEGRATING TAB 5MG PO PRN (20:02)
[2020-12-28] MEDS: BENZTROPINE 1 MG TAB PO PRN (20:02)
[2020-12-29 06:13] VITALS: BP 118/58
[2020-12-29] MEDS: levETIRAcetam 250MG TABLET (KEPPRA) PO SCH ×2 (08:19→21:00)
[2020-12-29] MEDS: GABAPENTIN 400MG CAP PO SCH ×3 (08:20→21:00)
[2020-12-29] MEDS: METHADONE 10 MG TAB (S0109) PO SCH (08:20)
[2020-12-29] MEDS: ESCITALOPRAM OXALATE 10 MG TAB (LEXAPRO) PO SCH (08:20)
[2020-12-29] MEDS: CEFDINIR 300 MG CAP (OMNICEF) PO SCH ×2 (08:20→21:00)
[2020-12-29] MEDS: OLANZapine ORAL DISINTEGRATING TAB 5MG PO PRN (09:34)
[2020-12-29] MEDS: BENZTROPINE 1 MG TAB PO PRN (09:34)
[2020-12-29] MEDS: cloNIDine 0.2 MG TAB PO PRN (12:30)
[2020-12-29 18:00] VITALS: BP 91/51
[2020-12-29] MEDS ORDERED: PRAZOSIN 1 MG CAP PO SCH (21:00)
[2020-12-30 06:22] VITALS: BP 93/47
[2020-12-30] MEDS: ESCITALOPRAM OXALATE 10 MG TAB (LEXAPRO) PO SCH (08:13)
[2020-12-30] MEDS: METHADONE 10 MG TAB (S0109) PO SCH (08:13)
[2020-12-30] MEDS: GABAPENTIN 400MG CAP PO SCH ×3 (08:13→20:11)
[2020-12-30] MEDS: levETIRAcetam 250MG TABLET (KEPPRA) PO SCH ×2 (08:13→20:11)
[2020-12-30] MEDS: CEFDINIR 300 MG CAP (OMNICEF) PO SCH ×2 (08:13→20:12)
[2020-12-30] MEDS: OLANZapine ORAL DISINTEGRATING TAB 5MG PO PRN (13:19)
[2020-12-30] MEDS: BENZTROPINE 1 MG TAB PO PRN (13:20)
[2020-12-30] MEDS: busPIRone 10 MG TAB PO SCH ×2 (13:50→20:11)
--- NOTE | 2020-12-30 17:51 | MHIPN ---
[facility] PROGRESS NOTE DATE: 12/30/2020 The patient today states that she is still having a lot of anxiety. She says her sleep was really restless. She did not have any nightmares, but she did not take the prazosin last night. She says that she had gotten into an argument with a staff member but does not remember refusing it. She is denying suicidal thoughts today. MENTAL STATUS EXAMINATION: This patient is alert and oriented times three. She is verbally spontaneous. There is no formal thought disorder noted. Mood is depressed and anxious. Affect full range and appropriate. I did not elicit psychotic symptoms. She is denying suicidal or homicidal thoughts today. Concentration is fair. Memory intact. Insight and judgment poor. DIAGNOSES: 1. Schizoaffective disorder, bipolar type. 2. Methamphetamine use disorder. 3. Stimulant use disorder. 4. Opioid used disorder. 5. Cannabis use disorder. 6. History of noncompliance with medication and treatment. TREATMENT PLAN: At this point, we will continue to monitor the patient for continued resolution of suicidal ideations. She is denying them today, but this patient tends to be very impulsive. Also, the patient will be monitored for her increased anxiety, so we will add BuSpar 10 mg twice a day. She does tend to run low blood pressures at times, and so at times she does not meet the criteria, she says, for the clonidine. I will increase the trazodone from 50 to 100 mg at night as needed for insomnia.
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
[2020-12-30 18:00] VITALS: BP 117/53
[2020-12-30] MEDS: PRAZOSIN 1 MG CAP PO PRN (20:11)
[2020-12-30] MEDS: traZODone 100 MG TAB PO PRN (20:12)
[2020-12-30] MEDS ORDERED: SENNA 8.6 MG TAB (SENOKOT) PO PRN (20:55)
[2020-12-31] MEDS: levETIRAcetam 250MG TABLET (KEPPRA) PO SCH ×2 (08:20→20:04)
[2020-12-31] MEDS: busPIRone 10 MG TAB PO SCH ×2 (08:21→20:04)
[2020-12-31] MEDS: CEFDINIR 300 MG CAP (OMNICEF) PO SCH ×2 (08:21→20:04)
[2020-12-31] MEDS: ESCITALOPRAM OXALATE 10 MG TAB (LEXAPRO) PO SCH (08:21)
[2020-12-31] MEDS: METHADONE 10 MG TAB (S0109) PO SCH (08:22)
[2020-12-31] MEDS: GABAPENTIN 400MG CAP PO SCH ×3 (08:22→20:04)
--- NOTE | 2020-12-31 11:44 | IPNPDOC ---
Date Seen The patient was seen on 12/31/20. Progress Note SUBJECTIVE: I was notified patient had recent STD and has started having pain and pressure with urinating. Ordering GC, Chlamydia, Trich, UA with reflex to culture. F/u results. VS, I&O, 24H, Fishbone Vital Signs/I&O Vital Signs Date Time Temp Pulse Resp B/P (MAP) Pulse Ox O2 Delivery O2 Flow Rate FiO2 12/30/20 20:11 111/66 12/30/20 18:00 98.2 65 18 100 Room Air Em Koo MD Dec 31, 2020 11:44
[2020-12-31 14:19] LABS: FREE T4 0.8 NG/DL (0.76-1.46)
[2020-12-31 14:27] LABS: TOTAL T3 95.4 NG/DL (60.0-181.0)
[2020-12-31 16:46] LABS: GC DNA AMPLIFICATION NEGATIVE (NEGATIVE)
[2020-12-31 19:07] VITALS: BP 105/52
[2020-12-31] MEDS: PRAZOSIN 1 MG CAP PO PRN (20:04)
[2020-12-31] MEDS: traZODone 100 MG TAB PO PRN (20:04)
[2020-12-31] MEDS: OLANZapine ORAL DISINTEGRATING TAB 5MG PO PRN (20:04)
[2020-12-31] MEDS: BENZTROPINE 1 MG TAB PO PRN (20:04)
[2021-01-01 06:23] VITALS: BP 120/59
[2021-01-01] MEDS: levETIRAcetam 250MG TABLET (KEPPRA) PO SCH ×2 (08:04→20:21)
[2021-01-01] MEDS: busPIRone 10 MG TAB PO SCH ×2 (08:04→20:21)
[2021-01-01] MEDS: CEFDINIR 300 MG CAP (OMNICEF) PO SCH ×2 (08:06→20:22)
[2021-01-01] MEDS: METHADONE 10 MG TAB (S0109) PO SCH (08:06)
[2021-01-01] MEDS: GABAPENTIN 400MG CAP PO SCH ×3 (08:06→20:21)
[2021-01-01] MEDS ORDERED: ESCITALOPRAM OXALATE 5MG TABLET (LEXAPRO) PO ONE (09:00)
[2021-01-01 18:33] VITALS: BP 123/77
[2021-01-01] MEDS: cloNIDine 0.2 MG TAB PO PRN (19:36)
[2021-01-01] MEDS: OLANZapine ORAL DISINTEGRATING TAB 5MG PO PRN (20:21)
[2021-01-01] MEDS: PRAZOSIN 1 MG CAP PO PRN (20:21)
[2021-01-01] MEDS: traZODone 100 MG TAB PO PRN (20:21)
[2021-01-01] MEDS: BENZTROPINE 1 MG TAB PO PRN (20:21)
[2021-01-01] MEDS: ACETAMINOPHEN TAB 650MG DOSE (2X325MG) PO PRN (21:34)
[2021-01-02] MEDS: GABAPENTIN 400MG CAP PO SCH ×3 (08:27→20:25)
[2021-01-02] MEDS: levETIRAcetam 250MG TABLET (KEPPRA) PO SCH ×2 (08:27→20:24)
[2021-01-02] MEDS: busPIRone 10 MG TAB PO SCH ×2 (08:27→20:24)
[2021-01-02] MEDS: METHADONE 10 MG TAB (S0109) PO SCH (08:28)
[2021-01-02] MEDS: ALBUTEROL 90 MCG/ACT 8GM HFA INHALER INH PRN ×2 (08:29→20:24)
[2021-01-02] MEDS: ACETAMINOPHEN TAB 650MG DOSE (2X325MG) PO PRN (08:29)
--- NOTE | 2021-01-02 10:51 | IPNPDOC ---
Date Seen The patient was seen on 01/02/21. Progress Note SUBJECTIVE: Patient complaining of b/l lower ext swelling, denies chest pain, SOB, cough. Swelling has been worsening over time and states she has a "severe heart problem" she cannot remember when diagnosed. No echo or cardiology consult in system seen. She complains of "green discharge" with blowing nose; however, she has been getting treated for sinusitis. She also recently complained of dysuria, concern for reinfection of STD. All studies and UA neg for infection. She denies fevers, chills. OBJECTIVE: PHYSICAL EXAMINATION: VITAL SIGNS: Please see below GENERAL: Comfortable, in no apparent distress. HEENT: Sclera clear. RESPIRATORY: Lungs clear to auscultation bilaterally, no rales, wheeze or rhonchi. CARDIOVASCULAR: Regular rate and rhythm. ABDOMEN: Soft, nontender, no guarding or rebound tenderness. Normal bowel sounds. MUSCLE SKELETAL: +1 pitting edema b/l, no erythema, warmth. Left foot no pain on palpation, full ROM of this ankle. NEUROLOGICAL: CN 2-12 intact, no focal deficits PSYCHOLOGICAL: mood and affect appropriate. LABORATORY DATA: See below. IMAGING: XR of left foot: There is no acute osseous abnormality. 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 MICROBIOLOGY: Please see below. ASSESSMENT: 35-year-old female admitted for schizoaffective disorder, suicidal ideation. PLAN: B/l lower ext swelling, chronic -R/o DVT. -Could also be associated with heart vs. vascular etiology but again, is long standing issues can be worked up as o/p -If no DVT, suggest compression stockings -Starting on lasix 20 mg PO daily -Will need o/p echocardiogram to further w/u cardiac cause. Sinusitis -Complains of continued green discharge; however, is on RA, no increased s/s of infection -Ceftin 5 days Left foot pain, chronic -XR: There is no acute osseous abnormality. 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
--- NOTE | 2021-01-02 11:30 | REP ---
INDICATION: r/o DVT, b/l lower ext swelling. COMPARISON: 12/20/2019 TECHNIQUE: Multiple ultrasonographic images of the deep venous structures of the bilateral thighs were obtained from the level of the common femoral vein to the popliteal vein in the longitudinal and transverse scan planes along with Doppler interrogation and color flow Doppler imaging. Compression ultrasound of the proximal calves is also performed. FINDINGS: There is no abnormal echogenic material seen within any of the visualized deep venous structures of the bilateral lower extremities that would suggest acute thrombosis. Coaptation is unremarkable throughout. Doppler interrogation shows an expected response to respiratory variability and augmentation. The color flow Doppler images show what appears to be a normal vascular pattern throughout the common femoral through popliteal veins. Both calves showed compressible posterior tibial and peroneal veins throughout their visible course. IMPRESSION: There is no ultrasonographic evidence of deep venous thrombosis involving any of the visualized deep venous structures of the bilateral thigh and proximal calves as described above. Accredited by the [employer] in Vascular Peripheral Ultrasound. <Electronically signed by Bravo Lowe > 01/02/21 1126
[2021-01-02] MEDS: FUROSEMIDE 20 MG TAB PO SCH (11:51)
[2021-01-02 18:14] VITALS: BP 116/68
[2021-01-02] MEDS: traZODone 100 MG TAB PO PRN (20:24)
[2021-01-02] MEDS: cloNIDine 0.2 MG TAB PO PRN (20:24)
[2021-01-02 20:25] VITALS: BP 133/78
[2021-01-02] MEDS: PRAZOSIN 1 MG CAP PO PRN (20:25)
[2021-01-03 06:21] VITALS: BP 104/48
[2021-01-03] MEDS: GABAPENTIN 400MG CAP PO SCH (08:22)
[2021-01-03] MEDS: FUROSEMIDE 20 MG TAB PO SCH (08:22)
[2021-01-03] MEDS: levETIRAcetam 250MG TABLET (KEPPRA) PO SCH (08:22)
[2021-01-03] MEDS: busPIRone 10 MG TAB PO SCH (08:22)
[2021-01-03] MEDS: METHADONE 10 MG TAB (S0109) PO SCH (08:22)
[2021-01-03] MEDS ORDERED: BUSP10TA PO (12:31)
[2021-01-03] MEDS ORDERED: CLON0.2T PO (12:31)
[2021-01-03] MEDS ORDERED: SENN18TA PO (12:31)
[2021-01-03] MEDS ORDERED: FURO20TA2 PO (12:31)
[2021-01-03] MEDS ORDERED: KEPP10002 PO (12:31)
[2021-01-03] MEDS ORDERED: TRAZ-257 PO (12:31)
[2021-01-03] MEDS ORDERED: GABA600T4 PO (12:31)
[2021-01-03] MEDS ORDERED: MINI1CAP PO (12:31)
[2021-01-03] MEDS ORDERED: BENZ-52 PO (12:31)
[2021-01-03] MEDS ORDERED: SUMA25TA3 PO (12:31)
[2021-01-03] MEDS ORDERED: LEXA1TAB PO (12:40)
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
--- NOTE | 2021-01-03 14:13 | MHDSPDOC ---
[facility] Discharge Summary Discharge Summary DATE OF ADMISSION: Dec 27, 2020 at 10:49 DATE OF DISCHARGE: Jan 03, 2021 at 13:31 DISCHARGE DIAGNOSES: Schizoaffective disorder, bipolar type Methamphetamine use disorder Stimulant use disorder-history Opioid use disorder Cannabis use disorder History of noncompliance to medications and treatment REASON FOR ADMISSION: HISTORY OF THE PRESENT ILLNESS: Patient is a 35 -year-old Single, Unemployed/Disabled, Undomiciled, , female, who reports that she has not had medications since her last admission, and was waiting for [facility] to prescribe medications. States that she is feeling more depressed, anxiety is worsening, complains of mood swings, and suicidal thoughts. Suicidal thought is to jump from a bridge. Patient has a long history of psychiatric admissions, mostly psychotic symptoms from polysubstance use. However on this occasion she had only reported depressive symptoms and suicidal ideations due to not having her medications since her last admission. PER ED REPORT: Pt presented to [facility] ED by herself. Pt stated "she was here to have her meds changed and to see a new doctor for her prescriptions, because [facility] was not giving her any of her psyche medications since she started seeing [facility] after her last DC Nov 11, 2020 from [facility]." Pt stated "her depression is getting worse, not able to control her anxiety, or the voices, because pt has been off her medications since her DC." Pt reports "decompensating, 2 days last week had suicidal thoughts, no plan, last time 2 days ago," pt's mother kicked her out of mom's home and has an "order of protection" "not allowed to see her 5YO nephew, sister, or mother, homeless 1 week, no money, not on disability yet," poor eating, not able to sleep, hearing voices, not command, (possible base line symptom), poor eye contact, having mood swings, was cooperative during evaluation, and goes to [facility] daily for her Methadone treatment. Pt reports using cannabis when pt can afford it, used meth 4 days ago, has used heroin in the past, and has not drank etoh for over a year. Pt states she is feeling hopeless and helpless, concerning her medications, "holding on at the end of the rope, nobody cares, and my depression and anxiety is really getting bad." Pt reports over 25 suicide attempts in the past, last attempt was about a year ago, OD. Pt is familiar with [facility]. When asked what she normally does when needing help, pt answered "I come here." Pt stated does not feel safe being DC at this time. VITAL SIGNS: See below. CONSULTANTS INVOLVED: See Medical H + P by Hospitalist TREATMENT AND PROGRESS ON THE UNIT: Patient was admitted to the [facility] on a 9.39 legal status was afforded the following treatment modalities: 1) Individual Therapy 2) Group Therapy 3) Medication Management 4) Milieu Therapy 5) Safe Environment HOSPITAL COURSE: Patient was admitted to [facility] on a 9.39 legal status. Patient had reported that she did not have her medications since her last discharge. She was trying to get her prescriptions renewed by [facility], but was unable to see a provider. She had reported increased depression and anxiety with suicidal thoughts - she was restarted on her home medications and found medications beneficial and tolerated them well. Mood, anxiety, and intrusive thoughts improved with treatment. Pt attended groups daily during stay. Pts symptoms improved with treatment. On day of discharge pt. denied depression, anxiety, insomnia, SI/HI, hallucinations, delusions. Pt was discharged home with follow- up at [facility]. Pt felt safe for discharge. DISCHARGE ASSESSMENT: In today's interview, patient is alert and oriented, pt.s dress is appropriate. Hygiene and grooming is well-kempt. Smiles on approach and is pleasant and engaged in the interview. Denies depression and anxiety. Denies suicidal and homicidal ideation, planning or intent. Denies and is not observed with michael, psychotic symptoms of delusions, bizarre thinking, obsessions, paranoia, ruminations illogical thoughts, flight of ideas or having poor insight and judgement. Initially the patient wanted to stay another day reporting that she had to arrange housing. She requested a second meeting with the provider and asked to be discharged - she is established at [facility] and the patient wanted to change her outpatient appointments to [facility], reinforced with patient need to abstain from alcohol and drugs. Her methadone is continued at this time along with all her other home medications. She had reported that her mother had taken some of her medications, per RN patient no longer has gabapentin 800 mg at home. Gabapentin 600 mg 3 times daily was ordered. At discharge patient has normal mentation, declines further hospitalization on a voluntary status and meets criteria for discharge today. Discussed indications of medications, potential benefits and risks, alternatives (including no treatment) and questions were encouraged and answered. Patient encouraged to return to hospital if symptoms worsen or change and encouraged to call unit if he/she/they needs to speak to provider for questions regarding medications or care. MENTAL STATUS EXAMINATION ON DISCHARGE: Patient is a 35 -year-old Single, Unemployed/Disabled, Undomiciled, , female, who reports that she has not had medications since her last admission, and was waiting for [facility] to prescribe medications. States that she was feeling more depressed, anxiety is worsening, complains of mood swings, and suicidal thoughts. On discharge she is dressed appropriately although appears somewhat drowsy this morning, Speech: Is normal rate, tone and volume Language skills are intact Thought processes including: linear and goal oriented Thought content: denies depression and anxiety. Denies suicidal/homicidal ideation, planning or intent. Abstract reasoning, and computation: fair Description of associations: denies, none observed Description of abnormal or psychotic thoughts: denies, none observed. Judgment: fair Insight: fair Orientation: alert and oriented to person, place, time and situation Recent and remote memory: intact Attention span and concentration: good Language: expansive Fund of knowledge: average Mood: Euthymic Mood Affect: reactive Suicide Risk Assessment: 1) Does the patient wish to be ? No 2) Since your admission, have you had any actual thought of killing yourself? No 3) Since your admission, have you been thinking about how you might do this? No 4) Since your admission, have you had these thoughts and had some intention of acting on them? No 5) Since your admission, have you started to work out or worked out the detail s of how to kill yourself? No 5A) Do you intent to carry out this plan? No and NA 6) Have you ever done anything, started anything, or prepared to do anything with any intent to ? No 6A) How long since your admission did you do any of these? NA MEDICATIONS ON DISCHARGE: See Medication Reconciliation PLAN/FOLLOWUP ARRANGEMENTS: Up Care Education Label * Medical * Medical Follow Up [facility] * Established With This Provider Yes * Therapist CHADWICK VELAZQUEZ * Date Jan 24, 2021 * Time 10:20 * Address of Clinic or Practice [address] [place] [address] * Follow Up Care Education Label * Mental Health Appt 1 * [facility] Health [facility] * Established With This Provider Yes * Therapist AMOL * Date Jan 06, 2021 * Time 13:00 * Address of Clinic or Practice [address] [place] [address] * * Additional information PATIENT NEEDS TO TALK TO SHANELLE-OTP ABOUT TRANSFER OF CARE TO [facility] for behavioral health The amount of time spent in the coordination of care for this patient was approximately 25 minutes. ETOH/Disorder Med Rx ETOH/DRUG DISORDER RX: Given to pt at d/c Vital Signs/I&Os Vital Signs Date Time Temp Pulse Resp B/P (MAP) Pulse Ox O2 Delivery O2 Flow Rate FiO2 01/03/21 06:21 98.6 78 18 104/48 (66) 96 Room Air Medications Scheduled Buspirone HCl (Buspirone HCl) 10 Mg Tablet, 10 MG PO BID for Anxiety, #14 Escitalopram Oxalate (Lexapro) 10 Mg Tablet, 10 MG PO DAILY for depression, #7 Furosemide (Furosemide) 20 Mg Tablet, 20 MG PO DAILY for fluid retension, #7 Gabapentin (Gabapentin) 600 Mg Tablet, 600 MG PO TID for Anxiety, #21 Levetiracetam (Keppra) 1,000 Mg Tablet, 1,000 MG PO BID for Seizures, #14 Methadone HCl (Methadone HCl) 10 Mg/1 Ml Oral.conc, 100 MG PO DAILY for substance abuse, (Reported) Scheduled PRN Albuterol Sulfate (Albuterol Sulfate Hfa) 8.5 Gm Hfa.aer.ad, 2 PUFFS INH Q4-6HP PRN for SHORTNESS OF BREATH, (Reported) Benztropine Mesylate (Benztropine Mesylate) 1 Mg Tablet, 1 MG PO BIDP PRN for EPS, #14 Clonidine HCl (Clonidine HCl) 0.2 Mg Tablet, 0.2 MG PO TID PRN for ANXIETY, #21 Prazosin HCl (Minipress) 1 Mg Capsule, 1 MG PO QHSP PRN for nightmares, #7 Senna (Senna Lax) 8.6 Mg Tablet, 2 TAB PO BIDP PRN for CONSTIPATION, #14 Sumatriptan Succinate (Sumatriptan Succinate) 25 Mg Tablet, 25 MG PO DAILY PRN for MIGRAINE, #7 Trazodone HCl (Trazodone HCl) 100 Mg Tablet, 100 MG PO QHSP PRN for INSOMNIA, #7 Allergies Coded Allergies: Penicillins (Verified Allergy, Mild, Hives, 11/20/20) sulfamethoxazole (Verified Allergy, Mild, Blisters, 11/20/20) trimethoprim (Verified Allergy, Mild, Blisters, 11/20/20) dextroamphetamine (Verified Allergy, Unknown, 11/20/20) haloperidol (Verified Allergy, Unknown, 11/20/20) olanzapine (Verified Allergy, Unknown, 11/20/20) ziprasidone (Verified Allergy, Unknown, 11/20/20) MARGARET PELAEZ NP Jan 03, 2021 14:04
--- NOTE | 2021-01-04 05:47 | MHIPN ---
[facility] PROGRESS NOTE DATE: 12/31/2020 SUBJECTIVE: The patient today states that she is still feeling very depressed and anxious. She is complaining still of insomnia. She is denying suicidal thoughts. MENTAL STATUS EXAM: The patient is alert and oriented x3. She is pleasant and cooperative, verbally spontaneous. Eye contact is good. There is no formal thought disorder noted. Mood is depressed and anxious. Affect is full range and appropriate. She is not psychotic, suicidal or homicidal. Concentration and memory are good. Insight and judgment are good. DIAGNOSIS: 1. Schizoaffective disorder, bipolar type. 2. Methamphetamine use disorder. 3. Stimulant use disorder. 4. Opioid use disorder. 5. Cannabis use disorder. 6. History of noncompliance with medication and treatment. TREATMENT PLAN: The patient continues to be depressed and anxious. I am going to increase her Lexapro to 15 mg q. daily. We will continue to monitor her for continued elevation and stabilization of her mood and continued resolution of suicidal ideations.
== END 2021-01-03 13:31 | disposition home or self-care (01) | DRG 750 ==
LOC: M ED 10:57 → M ED INP 12-27 10:49 → M PSY 12-27 13:16
PROVIDERS: ADMIT Psychiatry & Neurology Psychiatry; ATTEND Psychiatry & Neurology Psychiatry
DX: F25.0 Schizoaffective disorder, bipolar type (principal); F15.10 Other stimulant abuse, uncomplicated; F11.10 Opioid abuse, uncomplicated; F12.10 Cannabis abuse, uncomplicated; Z91.14 Patient's other noncompliance with medication regimen; Z91.19 Patient's noncompliance with other medical treatment and regimen; Z81.3 Family history of other psychoactive substance abuse and dependence; Z20.822 Contact with and (suspected) exposure to COVID-19; Z79.899 Other long term (current) drug therapy; Z88.0 Allergy status to penicillin; Z88.2 Allergy status to sulfonamides; Z88.8 Allergy status to other drugs, medicaments and biological substances; R45.851 Suicidal ideations; F17.200 Nicotine dependence, unspecified, uncomplicated; J32.9 Chronic sinusitis, unspecified; M79.672 Pain in left foot; M79.89 Other specified soft tissue disorders; M79.2 Neuralgia and neuritis, unspecified

== ENCOUNTER 2021-01-19 13:02 | Inpatient (IN) | payer MEDICAID, OTHER ==
[~2021-01-19] VITALS: Ht 154.9 cm; Wt 74.8 kg
[~2021-01-19 13:02] MED LIST changes: +AMIT100TA; +BUSP10TA PO; +FURO20TA2 PO; +LEXA1TAB PO; +MED NOTE; +SENN18TA PO; +TRAZ-257 PO
--- OUTSIDE RECORDS SUMMARY | 2021-01-19 13:12 | CCD ---
Author Author [facility] Organization [facility] Address Unknown Phone Unavailable Care Team Providers Care Aircraft Instrument Repairer Name Role Phone Yessi Ritchie MD Unavailable [...] Unavailable Ford, M Shira PA-C Unavailable Unavailable CHAO GUERRA MD Unavailable Unavailable MARICHAO Gonzalez MD Unavailable Unavailable MARICHAO Gonzalez MD Unavailable Unavailable MARICHAO Gonzalez MD Unavailable Unavailable MRAICHAO Gonzalez MD Unavailable Unavailable Colten HOOD MD Unavailable Unavailable Colten HOOD MD Unavailable Unavailable Colten HOOD MD Unavailable Unavailable Colten HOOD MD Unavailable Unavailable Colten HOOD MD Unavailable Unavailable Colten HOOD MD Unavailable Unavailable Colten HOOD MD Unavailable Unavailable Colten HOOD MD Unavailable Unavailable Colten HOOD MD Unavailable Unavailable Colten HOOD MD Unavailable Unavailable Colten HOOD MD Unavailable Unavailable Colten HOOD MD Unavailable Unavailable Colten HOOD MD Unavailable Unavailable Colten HOOD MD Unavailable Unavailable Colten HOOD MD Unavailable Unavailable Colten HOOD MD Unavailable Unavailable Colten HOOD MD Unavailable Unavailable Colten HOOD MD Unavailable Unavailable Colten HOOD MD Unavailable Unavailable Chato OTERO MD Unavailable Unavailable Chato OTERO MD Unavailable Unavailable DESJARLAIS, KAROLYN DIRECTOR OF HOME HEALTH SERVICES Unavailable Unavailable DESJARLAIS, KAROLYN DIRECTOR OF HOME HEALTH SERVICES Unavailable Unavailable DESJARLAIS, KAROLYN DIRECTOR OF HOME HEALTH SERVICES Unavailable Unavailable DESJARLAIS, KAROLYN DIRECTOR OF HOME HEALTH SERVICES Unavailable Unavailable DESJARLAIS, KAROLYN DIRECTOR OF HOME HEALTH SERVICES Unavailable Unavailable DESJARLAIS, KAROLYN DIRECTOR OF HOME HEALTH SERVICES Unavailable Unavailable DESJARLAIS, KAROLYN DIRECTOR OF HOME HEALTH SERVICES Unavailable Unavailable DESJARLAIS, KAROLYN DIRECTOR OF HOME HEALTH SERVICES Unavailable Unavailable DESJARLAIS, KAROLYN DIRECTOR OF HOME HEALTH SERVICES Unavailable Unavailable DESJARLAIS, KAROLYN DIRECTOR OF HOME HEALTH SERVICES Unavailable Unavailable Lester, A Mavis GEOTHERMAL OPERATING ENGINEER Unavailable Unavailable Lester, A Mavis GEOTHERMAL OPERATING ENGINEER Unavailable Unavailable Lester, A Mavis GEOTHERMAL OPERATING ENGINEER Unavailable Unavailable Lester, A Mavis GEOTHERMAL OPERATING ENGINEER Unavailable Unavailable Lester, A Mavis GEOTHERMAL OPERATING ENGINEER Unavailable Unavailable Lester, A Mavis GEOTHERMAL OPERATING ENGINEER Unavailable Unavailable Lester, A Mavis GEOTHERMAL OPERATING ENGINEER Unavailable Unavailable Lester, A Mavis GEOTHERMAL OPERATING ENGINEER Unavailable Unavailable Lester, A Mavis GEOTHERMAL OPERATING ENGINEER Unavailable Unavailable Lester, A Mavis GEOTHERMAL OPERATING ENGINEER Unavailable Unavailable Lester, A Mavis GEOTHERMAL OPERATING ENGINEER Unavailable Unavailable Lester, A Mavis GEOTHERMAL OPERATING ENGINEER Unavailable Unavailable Lester, A Mavis GEOTHERMAL OPERATING ENGINEER Unavailable Unavailable Lester, A Mavis GEOTHERMAL OPERATING ENGINEER Unavailable Unavailable Lester, A Mavis GEOTHERMAL OPERATING ENGINEER Unavailable Unavailable Lester, A Mavis GEOTHERMAL OPERATING ENGINEER Unavailable Unavailable Lester, A Mavis GEOTHERMAL OPERATING ENGINEER Unavailable Unavailable Lester, A Mavis GEOTHERMAL OPERATING ENGINEER Unavailable Unavailable Lester, A Mavis GEOTHERMAL OPERATING ENGINEER Unavailable Unavailable Lester, A Mavis GEOTHERMAL OPERATING ENGINEER Unavailable Unavailable Lester, A Mavis GEOTHERMAL OPERATING ENGINEER Unavailable Unavailable Lester, A Mavis GEOTHERMAL OPERATING ENGINEER Unavailable Unavailable Lester, A Mavis GEOTHERMAL OPERATING ENGINEER Unavailable Unavailable Lester, A Mavis GEOTHERMAL OPERATING ENGINEER Unavailable Unavailable Lester, A Mavis GEOTHERMAL OPERATING ENGINEER Unavailable Unavailable Lester, A Mavis GEOTHERMAL OPERATING ENGINEER Unavailable Unavailable Lester, A Mavis GEOTHERMAL OPERATING ENGINEER Unavailable Unavailable Lester, A Mavis GEOTHERMAL OPERATING ENGINEER Unavailable Unavailable Lester, A Mavis GEOTHERMAL OPERATING ENGINEER Unavailable Unavailable Lester, A Mavis GEOTHERMAL OPERATING ENGINEER Unavailable Unavailable Lester, A Mavis GEOTHERMAL OPERATING ENGINEER Unavailable Unavailable Kori STEVEN MD Unavailable Unavailable [...] Unavailable Unavailable Kori STEVEN MD Unavailable Unavailable TEINSHAKori RUSH MD Unavailable Unavailable Kori STEVEN MD Unavailable Unavailable DEE DEE QUAKER MD Unavailable Unavailable DEE DEE QUAKER MD Unavailable Unavailable FUNEZ, QUAKER MD Unavailable Unavailable FUNEZ, QUAKER MD Unavailable Unavailable FUNEZ, QUAKER MD Unavailable Unavailable FUNEZ, QUAKER MD Unavailable Unavailable FUNEZ, QUAKER MD Unavailable Unavailable FUNEZ, QUAKER MD Unavailable Unavailable Ching, Reginah W Kassidy GEOTHERMAL OPERATING ENGINEER-C Unavailable Unavailabl e Ching, Reginah W Kassidy GEOTHERMAL OPERATING ENGINEER-C Unavailable Unavailabl e Ching, Reginah W Kassidy GEOTHERMAL OPERATING ENGINEER-C Unavailable Unavailabl e Ching, Reginah W Kassidy GEOTHERMAL OPERATING ENGINEER-C Unavailable Unavailabl e Ching, Reginah W Kassidy GEOTHERMAL OPERATING ENGINEER-C Unavailable Unavailabl e Ching, Reginah W Kassidy GEOTHERMAL OPERATING ENGINEER-C Unavailable Unavailabl e Ching, Reginah W Kassidy GEOTHERMAL OPERATING ENGINEER-C Unavailable Unavailabl e Ching, Reginah W Kassidy GEOTHERMAL OPERATING ENGINEER-C Unavailable Unavailabl e Ching, Reginah W Kassidy GEOTHERMAL OPERATING ENGINEER-C Unavailable Unavailabl e Ching, Reginah W Kassidy GEOTHERMAL OPERATING ENGINEER-C Unavailable Unavailabl e Ching, Reginah W Kassidy GEOTHERMAL OPERATING ENGINEER-C Unavailable Unavailabl e Ching, Reginah W Kassidy GEOTHERMAL OPERATING ENGINEER-C Unavailable Unavailabl e Ching, Reginah W Kassidy GEOTHERMAL OPERATING ENGINEER-C Unavailable Unavailabl e Ching, Reginah W Kassidy GEOTHERMAL OPERATING ENGINEER-C Unavailable Unavailabl e Ching, Reginah W Kassidy GEOTHERMAL OPERATING ENGINEER-C Unavailable Unavailabl e Ching, Reginah W Kassidy GEOTHERMAL OPERATING ENGINEER-C Unavailable Unavailabl e Ching, Elijah Ballyce GEOTHERMAL OPERATING ENGINEER-C Unavailable Unavailabl e Ching, Elijah Ballyce GEOTHERMAL OPERATING ENGINEER-C Unavailable Unavailabl e Ching, Elijah Ballyce GEOTHERMAL OPERATING ENGINEER-C Unavailable Unavailabl e Ching, Elijah W Kassidy GEOTHERMAL OPERATING ENGINEER-C Unavailable Unavailabl e Ching, Elijah W Kassidy GEOTHERMAL OPERATING ENGINEER-C Unavailable Unavailabl e Ching, Elijah W Kassidy GEOTHERMAL OPERATING ENGINEER-C Unavailable Unavailabl e Ching, Elijah W Kassidy GEOTHERMAL OPERATING ENGINEER-C Unavailable Unavailabl e Ching, Elijah W Kassidy GEOTHERMAL OPERATING ENGINEER-C Unavailable Unavailabl e Ching, Elijah W Kassidy GEOTHERMAL OPERATING ENGINEER-C Unavailable Unavailabl e Ching, Elijah Ballyce GEOTHERMAL OPERATING ENGINEER-C Unavailable Unavailabl e Ching, Elijah W Kassidy GEOTHERMAL OPERATING ENGINEER-C Unavailable Unavailabl e Ching, Elijah Ballyce GEOTHERMAL OPERATING ENGINEER-C Unavailable Unavailabl e Ching, Elijah W Kassidy GEOTHERMAL OPERATING ENGINEER-C Unavailable Unavailabl e Ching, Elijah Ballyce GEOTHERMAL OPERATING ENGINEER-C Unavailable Unavailabl e Ching, Elijah Juareze GEOTHERMAL OPERATING ENGINEER-C Unavailable Unavailabl e Ching, Elijah Ballyce GEOTHERMAL OPERATING ENGINEER-C Unavailable Unavailabl e LESTER, MATIAS PA Unavailable [...] Dwello PA PA, Nora Unavailable Unavailable Brown, Jane Unavailable Brown, Jane Unavailable MARK, L GINGER PA Unavailable Unavailable [...] MD Unavailable Unavailable MAHESH RECINOS Unavailable Unavailable Amanda RAMSEY MD Unavailable Unavailable Amanda RAMSEY MD Unavailable Unavailable Amanda RAMSEY MD Unavailable Unavailable Amanda RAMSEY MD Unavailable Unavailable Amanda RAMSEY MD Unavailable Unavailable Amanda RAMSEY MD Unavailable Unavailable Amanda RAMSEY MD Unavailable Unavailable Amanda RAMSEY MD Unavailable Unavailable Amanda RAMSEY MD Unavailable Unavailable Amanda RAMSEY MD Unavailable Unavailable Amanda RAMSEY MD Unavailable Unavailable MAHESH RECINOS MD Unavailable Unavailable MAHESH RECINOS MD Unavailable Unavailable Mavis Batista GEOTHERMAL OPERATING ENGINEER GEOTHERMAL OPERATING ENGINEER Unavailable Unavailable KATRIN BLUM MD Unavailable Unavailable [...] Unavailable Unavailable KATRIN BLUM Unavailable Unavailable TYE, Jenny LORA MD Unavailable Unavailable TYE, Jenny LORA MD Unavailable Unavailable TYE, Jenny LORA MD Unavailable Unavailable TYE, Jenny LORA MD Unavailable Unavailable TYE, S GENO HERNANDEZ Unavailable Unavailable TYE, S GENO HERNANDEZ Unavailable Unavailable TYE, S GENO HERNANDEZ Unavailable Unavailable TYE, S GENO HERNANDEZ Unavailable Unavailable TYE, Jenny LORA MD Unavailable Unavailable TYE, Jenny LORA MD Unavailable [...] Unavailable TYE, Jenny LORA MD Unavailable Unavailable Lino MOONEY MD Unavailable Unavailable Lino MOONEY MD Unavailable Unavailable Lino MOONEY MD Unavailable Unavailable Lino MOONEY MD Unavailable Unavailable Lino MOONEY MD Unavailable Unavailable Lino MOONEY MD Unavailable Unavailable Lino MOONEY MD Unavailable Unavailable Lino MOONEY MD Unavailable Unavailable Lino MOONEY MD Unavailable Unavailable JESICA, Lino VÁSQUEZ MD Unavailable Unavailable JESICA, Lino VÁSQUEZ MD Unavailable Unavailable JESICA, Lino VÁSQUEZ MD Unavailable Unavailable JESICA, Lino VÁSQUEZ MD Unavailable Unavailable JESICA, Lino VÁSQUEZ MD Unavailable Unavailable JESICA, Lion VÁSQUEZ MD Unavailable Unavailable JESICA, Lino VÁSQUEZ MD Unavailable Unavailable JESICA, Lino VÁSQUEZ MD Unavailable Unavailable JESICA, Lino VSÁQUEZ MD Unavailable Unavailable JESICA, Lino VÁSQUEZ MD Unavailable Unavailable JESICA, Lino VÁSQUEZ MD Unavailable Unavailable JESICA, Lino VÁSQUEZ MD Unavailable Unavailable JESICA, Lino VÁSQUEZ MD Unavailable Unavailable BROWN, L JANE Unavailable Unavailable PATTON, OLUMUYIWA Unavailable Unavailable PATTON, OLUMUYIWA Unavailable Unavailable PATTON, OLUMUYIWA Unavailable Unavailable PATTON, OLUMUYIWA Unavailable Unavailable PATTON, OLUMUYIWA Unavailable Unavailable ESCALERA, ANAHI DIRECTOR OF HOME HEALTH SERVICES Unavailable Unavailable ESCALERA, ANAHI DIRECTOR OF HOME HEALTH SERVICES Unavailable Unavailable ESCALERA, ANAHI DIRECTOR OF HOME HEALTH SERVICES Unavailable Unavailable BEHZAD SOTO MD Unavailable Unavailable [...] is protected by Article 27-F of the [facility] Public Health law. If you continue you may have access to information: Regarding HIV / AIDS; Provided by facilities licensed or operated by the [facility] Office of Mental Health; or Provided by the [facility] Office for People With Developmental Disabilities. If such information is present, then the following [facility] mandated warning applies: This information [...] law may result in a fine or longterm sentence or both. A general authorization for the release of medical or other information is NOT sufficient authorization for further disc losure. Allergies and Adverse Reactions Type Description Substance Reaction Status Data Source(s ) Propensity to adverse reactions ZIPRASIDONE ZIPRASIDONE [facility] Propensity to adverse reactions TRIMETHOPRIM Trimethoprim [facility] Propensity to adverse reactions SULFAMETHOXAZOLE Sulfamethoxazole [facility] Propensity to adverse reactions PENICILLINS Penicillin [facility] Propensity to adverse reactions HALOPERIDOL HALOPERIDOL [facility] Propensity to adverse reactions DEXTROAMPHETAMINE DEXTROAMPHETAMINE [facility] Drug allergy Drug allergy AMOXICLIIN SWELLING, HIVES [facility] Drug allergy olanzapine [facility] Drug allergy trimethoprim trimethoprim "BLISTERS IN MOUTH" [facility] Drug allergy sulfamethoxazole sulfamethoxazole "BLISTERS IN MOUTH" [facility] Drug allergy haloperidol haloperidol [facility] Drug allergy Sulfa (Sulfonamide Antibiotics) Sulfa (Sulfonami de Antibiotics) "BLISTERS IN MOUTH" [facility] Drug allergy Penicillins Penicillins SWELLING, HIVES R [facility] Encounters Encounter Providers Location Date Indications Data Source(s ) Emergency Attender: PETR HOOD MDAttender: APURVA PATTON ES1-CP2 01/12/2021 02:21:00 PM EST - 01/13/2021 08:36:[address] [facility] Patient discharged. Emergency Attender: MICHAEL RAMSEY MDConsultant: HONEY F NON 01/11/2021 11:07:00 PM EST - 01/12/2021 12:45:00 PM EST [facility] Patient discharged. Outpatient Attender: KAROLYN VAN NP 11/24/2020 03: 20:00 PM EDT [facility] Francesco Ritchie MD: [address] [place] [phone], Ph. Attender: Francesco Ritchie MD [place] [facility] Medical 11/12/2020 12:00:00 AM EDT [facility] ([facility]) OutpatientOFFICE VISIT, EST Attender: Nora MIKE PPNCNY [place] 11/05/2020 01:30:00 PM EDT - 11/05/2020 01:30:00 PM EDT Delusional disorders [facility] ([facility]) Delusional disorders Emergency Attender: EVONNE HAGENConsultant: STAFF NON 11/03/2020 11:35:00 AM EDT - 11/03/2020 03:27:00 PM EDT [facility] Patient discharged. Outpatient [facility] 10/12/2020 12:00:00 AM EDT eCW1 ([facility]) Emergency Attender: Matt Ruby MDConsultant: STAFF NON 10/03/2020 06:06:00 PM EDT - 10/03/2020 07:27:00 PM EDT [facility] Patient discharged. Inpatient Attender: MIRLANDE Elizabeth nder: PETR HOOD MDAdmitter: PETR HOOD MDReferrer: ANAHI ESCALERA DIRECTOR OF HOME HEALTH SERVICES [id number] 09/11/2020 03:40:00 PM EDT - 09/29/2020 03:01:00 PM EDT [facility] Patient discharged. Emergency Attender: ZAYNAB STEVEN MDConsultant: STAFF NON 09/09/2020 04:46:00 PM EDT - 09/09/2020 09:35:00 PM EDT [facility] Patient discharged. Outpatient Attender: KAROLYN VAN DIRECTOR OF HOME HEALTH SERVICES 09/03/2020 11: 00:00 AM EDT [facility] Outpatient [facility] 08/31/2020 12:00:00 AM EDT eCW1 ([facility]) Inpatient Attender: MIRLANDE FUNEZ MDAtte nder: GENO TYE MDAdmitter: MIRLANDE FUNEZ MDReferrer: KARI OTERO MD [id number] 08/25/2020 03:33:00 PM EDT - 08/27/2020 12:52:00 PM EDT [facility] Patient discharged. Inpatient Attender: MIRLANDE Elizabeth nder: PETR HOOD MDAttender: Hiral Liriano MDAdmitter: PETR HOOD MDReferrer: PETR HOOD MD [id number] 08/06/2020 12:00:00 AM EDT - 08/17/2020 12:08:00 PM EDT Suicidal ideations [facility] Suicidal ideations Patient discharged. Outpatient [facility] 07/22/2020 12:00:00 AM EDT eCW1 ([facility]) Outpatient Attender: Jane Edward 07/15/2020 08:03:00 AM E DT [facility] Outpatient [facility] 07/15/2020 12:00:00 AM EDT eCW1 ([facility]) Outpatient [facility] 07/12/2020 12:00:00 AM EDT eCW1 ([facility]) Emergency Attender: EVONNE Lackeyant: STAFF NON 06/28/2020 07:41:00 PM EDT - 06/28/2020 09:08:00 PM EDT [facility] Patient discharged. Emergency Attender: EVONNE Lackeyant: STAFF NON 06/16/2020 04:22:00 PM EDT - 06/16/2020 08:01:00 PM EDT [facility] Patient discharged. Outpatient Attender: Jane EdwardAttender: JANE EDWARD 06/16/2020 09:02:00 AM EDT [facility] Outpatient [facility] 06/14/2020 12:00:00 AM EDT eCW1 ([facility]) Outpatient [facility] 06/11/2020 12:00:00 AM EDT eCW1 ([facility]) Outpatient Attender: Jane Stonerender: JANE EDWARD 05/26/2020 05:00:00 PM EDT [facility] Outpatient [facility] 05/26/2020 12:00:00 AM EDT eCW1 ([facility]) Outpatient [facility] 05/24/2020 12:00:00 AM EDT eCW1 ([facility]) Outpatient [facility] 05/24/2020 12:00:00 AM EDT eCW1 ([facility]) Outpatient [facility] 05/14/2020 12:00:00 AM EDT eCW1 ([facility]) Outpatient [facility] 05/04/2020 12:00:00 AM EST eCW1 ([facility]) Outpatient Attender: KAROLYN VAN NP 04/29/2020 01: 20:00 PM EST [facility] Outpatient [facility] 04/28/2020 12:00:00 AM EST eCW1 ([facility]) Outpatient [facility] 04/28/2020 12:00:00 AM EST eCW1 ([facility]) Outpatient [facility] 04/23/2020 12:00:00 AM EST eCW1 ([facility]) Outpatient Attender: Jane EdwardAttender: JANE EDWARD 04/20/2020 03:00:00 PM EST [facility] Outpatient [facility] 04/19/2020 12:00:00 AM EST eCW1 ([facility]) Outpatient [facility] 04/16/2020 12:00:00 AM EST eCW1 ([facility]) Outpatient Attender: FAHAD MOONEY MD 04/15/2020 09:4 5:00 AM EST [facility] Outpatient [facility] 04/12/2020 12:00:00 AM EST eCW1 ([facility]) Outpatient [facility] 04/12/2020 12:00:00 AM EST eCW1 ([facility]) Outpatient [facility] 04/08/2020 12:00:00 AM EST eCW1 ([facility]) Outpatient [facility] 04/08/2020 12:00:00 AM EST eCW1 ([facility]) Outpatient [facility] 04/08/2020 12:00:00 AM EST eCW1 ([facility]) Outpatient [facility] 04/05/2020 12:00:00 AM EST eCW1 ([facility]) Outpatient Attender: NATHAN PAUL PA-C 03/30/2020 10:30:00 AM [facility] Outpatient Attender: Shira Youngblood PA-C 03/30/2020 10:18 :00 AM [facility] Outpatient [facility] 03/30/2020 12:00:00 AM EST eCW1 ([facility]) Outpatient Attender: Jane EdwardAttender: JANE EDWARD 03/23/2020 02:00:00 PM [facility] Outpatient Attender: Jane EdwardAttender: JANE EDWARD 03/17/2020 10:30:00 AM [facility] Outpatient Attender: Jane Stonerender: JANE EDWARD 03/11/2020 04:00:00 PM [facility] Outpatient Attender: FAHAD MOONEY MD 03/11/2020 06:3 0:00 AM [facility] Admission cancelled. Disregard status an d admitted date. Outpatient Attender: KAROLYN VAN NP 03/09/2020 03: 40:00 PM [facility] Outpatient [facility] 03/03/2020 12:00:00 AM EST eCW1 ([facility]) Outpatient Attender: Shira Becerraferrer: Shira Youngblood PA-C EMERGENCY ROOM-LAB 03/01/2020 04:49:00 PM EST - 03/01/2020 04:49:00 PM [facility] Outpatient Attender: Shira Youngblood PA-C 03/01/2020 03:45 :00 PM [facility] Outpatient [facility] 03/01/2020 12:00:00 AM EST eCW1 ([facility]) Outpatient [facility] 03/01/2020 12:00:00 AM EST eCW1 ([facility]) Outpatient Attender: KAROLYN VAN NP 02/18/2020 02: 40:00 PM [facility] Outpatient Attender: Kassidy SERRANO 02/18/2020 10:00:0 0 AM EST [facility] Outpatient [facility] 02/18/2020 12:00:00 AM EST eCW1 ([facility]) Outpatient [facility] 02/10/2020 12:00:00 AM EST eCW1 ([facility]) Outpatient [facility] 02/03/2020 12:00:00 AM EST eCW1 ([facility]) Outpatient [facility] 01/14/2020 12:00:00 AM EST eCW1 ([facility]) Outpatient [facility] 01/06/2020 12:00:00 AM EST eCW1 ([facility]) Outpatient Attender: JOHNATHON PATEL 01/02/2020 10:06:00 A [facility] Outpatient [facility] 01/02/2020 12:00:00 AM EST eCW1 ([facility]) Outpatient Attender: Jane EdwardAttender: JANE EDWARD 01/01/2020 02:30:00 PM [facility] Outpatient Attender: KAROLYN VAN NP 12/24/2019 11: 00:00 AM [facility] Outpatient Attender: Shira Youngblood PA-C [facility] 12/24/2019 12:00:00 AM EDT eCW1 ([facility]) Outpatient Attender: Jane Stonerender: JANE EDWARD [facility] 12/23/2019 12:00:00 AM EDT eCW1 ([facility]) Outpatient Attender: Mavis DIEGO FP 12/12/2019 11:3 5:02 AM EDT [facility] Outpatient Attender: Jane Stonerender: JANE EDWARD 12[facility]11[facility] 12/09/2019 12:00:00 AM EDT eCW1 ([facility]) Outpatient Attender: Mavis DIEGO FP 12/05/2019 01:2 6:01 PM EDT [facility] Inpatient Attender: PRERNA RIOS MDAdmitter: PRERNA Alvarado MD ER-3RD 12/05/2019 10:08:00 AM EDT - 12/10/2019 01:07:00 PM EDT [facility] Patient discharged. Outpatient Attender: NATHAN PAUL PA-C 12/05/2019 09:03:00 AM [facility] Admission cancelled. Disregard status an d admitted date. Inpatient Attender: BEHZAD SOTO MD Attender: BEHZAD SOTO MDAttender: DIOGENES BUENO MDAttender: DIOGENES BUENO MDAdmitter: BEHZAD SOTO MD ER-ICU 12/04/2019 11:06:00 PM EDT - 12/05/2019 10:03:00 AM EDT [facility] Patient discharged. Emergency Attender: GINGER Salaser: Melissa Youngblood PA-C EMERGENCY ROOM-ER 12/04/2019 04:21:00 PM EDT - 12/04/2019 08:40:00 PM [facility] Patient discharged. Outpatient Attender: KAROLYN VAN NP 12/04/2019 03: 11:00 PM [facility] Outpatient Attender: aMvis PATEL 11/29/2019 07:0 4:03 PM [facility] Outpatient Attender: JOHNATHON PATEL 11/29/2019 07:04:01 P [facility] Outpatient Attender: Mavis PATEL 11/24/2019 12:2 9:00 PM [facility] Outpatient Attender: KAROLYN VAN NP 11/04/2019 11: 40:00 AM [facility] Outpatient Attender: Shira Youngblood PA-C 10/31/2019 09:06 :00 AM [facility] Outpatient Attender: Jane EdwardAttender: JANE EDWARD 10/27/2019 11:00:00 AM [facility] Outpatient Attender: KAROLYN VAN NP 10/21/2019 03: 20:00 PM [facility] Outpatient Attender: KATRIN BLUM MDAttender: KATRIN BLUM 10/06/2019 09:37:00 AM [facility] Outpatient Attender: KATRIN BLUM MDAttender: KATRIN BLUM 08/04/2019 09:42:00 AM [facility] Outpatient Attender: KATRIN BLUM MDAttender: KATRIN BLUM 07/07/2019 03:30:00 PM [facility] Outpatient Attender: KATRIN BLUM MDAttender: KATRIN BLUM 04/21/2019 10:29:00 AM [facility] Outpatient Attender: MAHESH RECINOS MDAttender: MAHESH RECINOS 02/24/2019 01:46:00 PM [facility] Outpatient Attender: Jane EdwardAttender: JANE EDAWRD 02/21/2019 10:00:00 AM [facility] Outpatient Attender: MAHESH RECINOS MDAttender: MAHESH RECINOS 02/10/2019 02:18:00 PM [facility] Inpatient Attender: CHAO Ferrell harjinder: PRERNA RIOS MDAdmitter: PRERNA RIOS MD ER-3RD 12/23/2018 04:01:00 PM EDT - 12/26/2018 01:22:00 PM T [facility] Patient discharged. Inpatient Attender: ONDINA RAMIREZ MDAdmitter: ONDINA RAMIREZ MD E R-ICU 12/19/2018 05:26:00 PM EDT - 12/23/2018 03:42:00 PM EDT [facility] Patient discharged. Emergency Attender: MATI[facility] 03:51:00 PM EDT - 12/19/2018 04:47:00 PM [facility] Patient discharged. Medications Medication Brand Name Start [...] TABLET BY MOUTH AT BEDTIME SOLD: 11/23/2020 [facility] gabapentin 800 MG Oral Tablet GABAPENTIN 11/02/2020 12:00:00 AM EDT ta blet 21 TAKE ONE TABLET BY MOUTH THREE TIMES A DAY FOR NEUROPATHY TAKE ONE TABLET BY MOUTH THREE TIMES A DAY FOR NEUROPATHY SOLD: 11/04/2020 [facility] 21 mg/24 hr 11/02/2020 12:00:00 AM EDT patch 24 hour 7 APPLY ONE PATCH TO THE SKIN ONCE DAILY FOR NICOTINE WITHDRAWAL APPLY ONE PATCH TO THE SKIN ONCE DAILY FOR NICOTINE WITHDRAWAL SOLD: 11/04/2020 [facility] 25 mg 11/02/2020 12:00:00 AM EDT tablet 9 TAKE ONE TABLET BY MOUTH TWICE A DAY NEEDED FOR MIGRAINE TAKE ONE TABLET BY MOUTH TWICE A DAY NEEDED FOR MIGRAINE SOLD: 11/04/2020 [facility] 90 mcg/actuation 11/02/2020 12:00:00 AM EDT HFA aerosol inha ler 8 INHALE TWO PUFFS BY MOUTH EVERY 4 HOURS NEEDED FOR SHORTNESS OF BREATH INHALE TWO PUFFS BY MOUTH EVERY 4 HOURS NEEDED FOR SHORTNESS OF BREATH SOLD: 11/04/2020 [facility] Citalopram 20 MG Oral Tablet CITALOPRAM HYDROBROMIDE 11/02/2020 12:00:00 AM EDT tablet 7 TAKE ONE TABLET BY MOUTH EVERY D AY FOR DEPRESSION TAKE ONE TABLET BY MOUTH EVERY DAY FOR DEPRESSION SOLD: 11/04/2020 [facility] Metronidazole 500 MG Oral Tablet METRONIDAZOLE 11/02/2020 12:0 0:00 AM EDT tablet 9 TAKE ONE TABLET BY MOUTH EVERY 1 2 HOURS FOR BLADDER INFECTION TAKE ONE TABLET BY MOUTH EVERY 12 HOURS FOR BLADDER INFECTION SOLD: 11/04/2020 [facility] Fluticasone propionate 0.05 MG/ACTUAT Metered Dose [facility] 50 mcg/actuation FLUTICASONE PROPIONATE 11/02/2020 12:00:00 AM EDT spray,suspension 16 USE 2 SPRAYS IN EACH NOSTRIL DAILY NEEDED FOR ALLERGIES USE 2 SPRAYS IN EACH NOSTRIL DAILY NEEDED FOR ALLERGIES SOLD: 11/04/2020 [facility] 1,000 mg 11/02/2020 12:00:00 AM EDT [...] A DAY NEEDED FOR CONSTIPATION SOLD: 11/04/2020 [facility] Clonidine Hydrochloride 0.2 MG Oral Tablet [...] active Take 1 tablet by mouth d [facility] Buprenorphine 8 MG / Naloxone 2 MG Oral Strip buprenorphine-naloxone (SUBOXONE) 8-2 MG per sublingual film 2 Film buprenorphine-naloxone (SUBOXONE) 8-2 MG per sublingual film 2 Film 09/29/2020 09:00:00 AM EDT 2 {film} Sublingual active 2 Film, Sublingual, Daily Standard, First dose (after last reorder) on Sun09/29/20 at 0900, For 7 days [facility] Medication administered onsite 1,000 mg [...] tablet by cali th Three times daily [facility] Levetiracetam 1000 MG Oral Tablet levETIRAcetam 1000 M G Oral Tablet (KEPPRA) levETIRAcetam 1000 MG Oral Tablet (KEPPRA) 09/29/2020 12:00:00 AM EDT 1000 mg Oral active Take 1 tablet by cali th Two Times Daily [facility] Chlorpromazine hydrochloride 100 MG Oral Tablet chlorproMAZINE HCl 100 MG Oral Tablet (THORAZINE) chlorproMAZINE HCl 100 MG Oral Tablet (THORAZINE) 05/2020 12:00:00 AM EDT 100 mg Oral active Take 1 tablet by mouth Two Times Daily [facility] 600 mg 09/29/2020 12:00:00 AM [...] on Sun09/27/20 at 2100, For 30 doses [facility] Medication administered onsite chlorproMAZINE (THORAZINE) injection 100 mg [id number] 09/27/2020 01:00:00 PM EDT 100 mg Intramuscular completed 100 mg, Intramuscular, Once, On Sun09/27/20 at 1300, For 1 dose
May be given over objection
[facility] Medication administered onsite chlorproMAZINE (THORAZINE) injection 100 mg [id number] 09/25/2020 02:00:00 PM EDT 100 mg Intramuscular completed 100 mg, Intramuscular, Once, On 09/25/20 at 1400, For 1 dose [facility] Medication administered onsite diphenhydrAMINE (BENADRYL) injection 50 mg [id number] 09/25/2020 02:00:00 PM EDT 50 mg Intramuscular completed 50 mg, Intramuscular, Once, On 09/25/20 at 1400, For 1 dose [facility] Medication administered onsite olanzapine 5 MG/ML Injectable Solution OLANZapine (ZYP REXA) injection 10 mg OLANZapine (ZYPREXA) injection 10 mg 09/25/2020 09:15:00 AM EDT 10 mg Intramuscular completed 10 mg, Intr amuscular, Once, On 09/25/20 at 0915, For 1 dose
Reconstitute 10 mg vial with 2.1 mL SWFI; resulting solution is ~5 mg/mL; Use within 1 hour following reconstitution.
[facility] Medication administered onsite Chlorpromazine hydrochloride 100 MG Oral Tablet chlorproMAZINE (THORAZINE) tablet 100 mg chlorproMAZINE (THORAZINE) tablet 100 mg 09/23/2020 10 :00:00 PM EDT 100 mg Oral aborted 100 mg, Oral, Nightly, First dose (after last modification) on Sun09/23/20 at 2200, For 28 doses [facility] Medication administered onsite gabapentin 300 MG Oral Capsule gabapentin (NEURONTIN) capsule 600 mg gabapentin (NEURONTIN) capsule 600 mg 09/23/2020 03:00:00 PM EDT 600 mg Oral active 600 mg, Oral, Three Times D aily Standard, Indications: substance use anxiety, First dose (after last modification) on Sun09/23/20 at 1500, For 57 doses [facility] Medication administered onsite Chlorpromazine hydrochloride 50 MG Oral Tablet chlorproMAZINE (THORAZINE) tablet 50 mg chlorproMAZINE (THORAZINE) tablet 50 mg 09/21/2020 10:00:00 PM E DT 50 mg Oral aborted 50 mg, Ora l, Nightly, First dose on Sun09/21/20 at 2200, For 30 days [facility] Medication administered onsite Ibuprofen 400 MG Oral Tablet ibuprofen (MOTRIN) tablet 400 mg ibuprofen (MOTRIN) tablet 400 mg 09/21/2020 09:30:00 PM EDT 400 mg Oral comp leted 400 mg, Oral, Once, On Sun09/21/20 at 2130, For 1 dose
Take with food.
[facility] Medication administered onsite Chlorpromazine hydrochloride 25 MG Oral Tablet chlorproMAZINE (THORAZINE) tablet 25 mg chlorproMAZINE (THORAZINE) tablet 25 mg 09/21/2020 03:00:00 PM E DT 25 mg Oral aborted 25 mg, Ora l, 2 Times Daily, First dose (after last modification) on Sun09/21/20 at 1500, For 30 doses [facility] Medication administered onsite Citalopram 20 MG Oral Tablet citalopram (CELEXA) table t 10 mg citalopram (CELEXA) tablet 10 mg 09/19/2020 09:00:00 AM EDT 10 mg Oral active 10 mg, Oral, Daily Standard, First dose on Sun09/19/20 at 0900, For 30 days [facility] Medication administered onsite Chlorpromazine hydrochloride 25 MG Oral Tablet chlorproMAZINE (THORAZINE) tablet 25 mg chlorproMAZINE (THORAZINE) tablet 25 mg 09/15/2020 12:15:00 PM E DT 25 mg Oral aborted 25 mg, Ora l, Three Times Daily Standard, First dose on Sun09/15/20 at 1215, For 30 days [facility] Medication administered onsite Nicotine 2 MG Oral Lozenge nicotine (NICORETTE) lozeng e 2 mg nicotine (NICORETTE) lozenge 2 mg 09/15/2020 10:22:02 AM EDT 2 mg Mouth/Th roat active 2 mg, Mouth/Throat, Every 2 hours PRN, Smoking cessation, Starting on Sun09/15/20 at 1022, For 30 days
Should not be chewed or swallowed; allow to dissolve slowly (~20-30 minutes)
[facility] Medication administered onsite gabapentin 400 MG Oral Capsule gabapentin (NEURONTIN) capsule 400 mg gabapentin (NEURONTIN) capsule 400 mg 09/14/2020 05:00:00 PM EDT 400 mg Oral aborted 400 mg, Oral, Three Times D aily Standard, Indications: substance use anxiety, First dose (after last modification) on Sun09/14/20 at 1700, For 84 doses [facility] Medication administered onsite Acetaminophen 325 [...] mg from all sources in 24 hours.
[facility] Medication administered onsite 24 HR Nicotine 0.875 MG/HR Transdermal P atch nicotine (NICODERM CQ) 21 MG/24HR 1 patch nicotine (NICODERM CQ) 21 MG/24HR 1 patch 09/13/2020 09:00:00 AM EDT 1 {patch} Transdermal aborted 1 patch, Transdermal, Administer over 24 Hours, Daily Standard, First dose on Sun09/13/20 at 0900, For 30 days [facility] Medication administered onsite Bisacodyl 10 MG Rectal Suppository bisacodyl (DULCOLAX ) suppository 10 mg bisacodyl (DULCOLAX) suppository 10 mg 09/13/2020 08:49:03 AM EDT 10 mg Rectal active 10 mg, Rectal, Every 72 hours PRN, Constipation, Starting on Sun09/13/20 at 0849, For 30 days
Hold if patient has had BM within the past 2 days.
[facility] Medication administered onsite Docusate Sodium 100 MG Oral Capsule docusate sodium (C OLACE) capsule 100 mg docusate sodium (COLACE) capsule 100 mg 09/13/2020 08:49:03 AM EDT 100 mg Oral active 100 mg, Oral, 2 Times Daily PRN, Constipation, Starting on Sun09/13/20 at 0849, For 30 days [facility] Medication administered onsite sennosides, FDC 8.6 MG Oral Tablet senna tablet 2 tablet sen na tablet 2 tablet 09/13/2020 08:49:03 AM EDT 2 {tbl} Oral active 2 tablet, Oral, Nightly PRN, Constipation, Starting on Sun09/13/20 at 0849, For 30 days [facility] Medication administered onsite Magnesium Hydroxide [...] creatinine > 2 notify provider before administering.
[facility] Medication administered onsite Asenapine 5 MG Sublingual Tablet Asenapine Maleate (SA PHRIS) SL tablet 5 mg Asenapine Maleate (SAPHRIS) SL tablet 5 mg 09/12/2020 09:00:00 PM EDT 5 mg Sublingual aborted 5 mg, Sublingu al, 2 Times Daily, First dose on 09/12/20 at 2100, For 30 days [facility] Medication administered onsite gabapentin 300 MG Oral Capsule gabapentin (NEURONTIN) capsule 300 mg gabapentin (NEURONTIN) capsule 300 mg 09/12/2020 05:00:00 PM EDT 300 mg Oral aborted 300 mg, Oral, Three Times D aily Standard, Indications: substance use anxiety, First dose on 09/12/20 at 1700, For 30 days [facility] Medication administered onsite Trazodone Hydrochloride 50 MG Oral Tablet trazodone (D ESYREL) tablet 50 mg trazodone (DESYREL) tablet 50 mg 09/12/2020 12:11:29 PM EDT 50 mg Oral active 50 mg, Oral, Nightly PRN, Sleep, Starting on 09/12/20 at 1211, For 30 days [facility] Medication administered onsite Hydroxyzine Hydrochloride 50 MG Oral Tablet hydrOXYzin e (ATARAX) tablet 50 mg hydrOXYzine (ATARAX) tablet 50 mg 09/12/2020 12:10:58 PM EDT 50 mg Oral active 50 mg, Oral, Every 6 hours PRN, Itching, Starting on 09/12/20 at 1210, For 700 hours [facility] Medication administered onsite Clonidine Hydrochloride 0.1 MG Oral Tablet cloNIDine ( CATAPRES) tablet 0.1 mg cloNIDine (CATAPRES) tablet 0.1 mg 09/12/2020 12:10:43 PM EDT 0.1 mg Oral active Attention Deficit Hyperactivity Disorder 0.1 mg, Oral, Three Times Daily-PRN, anxiety, Indications: Attention Deficit Hyperactivity Disorder, Starting on 09/12/20 at 1210, For 30 days [facility] Attention Deficit Hyperactivity Disorder Medication administered onsite Levetiracetam 500 MG Oral Tablet levetiracetam (KEPPRA ) tablet 1,000 mg levetiracetam (KEPPRA) tablet 1,000 mg 09/11/2020 09:00:00 PM EDT 1000 mg Oral active 1,000 mg, Oral , 2 Times Daily, First dose on 09/11/20 at 2100, For 81 doses [facility] Medication administered onsite Buprenorphine 8 MG / Naloxone 2 MG Oral Strip buprenorphine-naloxone (SUBOXONE) 8-2 MG per sublingual film 2 Film buprenorphine-naloxone (SUBOXONE) 8-2 MG per sublingual film 2 Film 09/11/2020 08:45:00 PM EDT 2 {film} Sublingual completed 2 Film, Sublingual, Daily Standard, First dose (after last modification) on 09/11/20 at 2045, For 18 doses [facility] Medication administered onsite benztropine mesylate 1 MG Oral Tablet benztropine (COG ENTIN) tablet 1 mg benztropine (COGENTIN) tablet 1 mg 09/11/2020 04:38:18 PM EDT 1 mg Oral active 1 mg, Oral, 2 Times Daily PRN, Tremor, Starting on 09/11/20 at 1638, For 30 days [facility] Medication administered onsite 100,000 unit/mL [...] Place 2 Film under the tongue daily [facility] Diphenhydramine Hydrochloride 25 MG Oral Capsule diphenhydrAMINE (BENADRYL) capsule 25 mg diphenhydrAMINE (BENADRYL) capsule 25 mg 08/17/2020 10 :11:01 AM EDT 25 mg Oral active 25 mg, O ral, Nightly PRN, Sleep, Starting on Sun08/17/20 at 1011, For 30 days [facility] Medication administered onsite Buprenorphine 8 MG / Naloxone 2 MG Subli ngual Tablet Buprenorphine HCl-Naloxone HCl 8-2 MG Sublingual Tablet Sublingual (SUBOXONE) Buprenorphine HCl-Naloxone HCl 8-2 MG Sublingual Tablet Sublingual (SUBOXONE) 08/17/2020 12:00:00 AM EDT 1 {tbl} Sublingual active Place 1 t ablet under the tongue Two Times Daily Use supply at home, Max Daily Dose: 2 tablets [facility] Asenapine 10 MG Sublingual Tablet Asenap ine Maleate 10 MG Sublingual Tablet Sublingual (SAPHRIS) Asenapine Maleate 10 MG Sublingual Table t Sublingual (SAPHRIS) 08/17/2020 12:00:00 AM EDT 10 mg Sublingual abor keven Place 1 tablet under the tongue Two Times Daily [facility] 10 mg 08/17/2020 12:00:00 AM [...] 1 tablet by mouth daily as needed [facility] gabapentin 300 MG Oral Capsule Gabapentin 300 MG Oral Capsule (NEURONTIN) Gabapentin 300 MG Oral Capsule (NEURONTIN) 08/17/2020 12:00:00 AM EDT 600 mg Oral aborted Take 2 capsules by m outh Three times daily [facility] benztropine mesylate 1 MG Oral Tablet Be nztropine Mesylate 1 MG Oral Tablet (COGENTIN) Benztropine Mesylate 1 MG Oral Tablet (COGENTIN) 08/17 12:00:00 AM EDT 1 mg Oral active Take 1 t ablet by mouth Two times daily as needed [facility] 25 mg 08/17/2020 12:00:00 AM EDT capsule 15 TAKE 1 CAPSULE BY MOUTH NIGHTLY NEEDED FOR SLEEP FOR UP TO 10 DAYS TAKE 1 CAPSULE BY MOUTH NIGHTLY NEEDE D FOR SLEEP FOR UP TO 10 DAYS SOLD: 08/17/2020 [facility] Diphenhydramine Hydrochloride 25 MG Oral Capsule diphenhydrAMINE HCl 25 MG Oral Capsule (BENADRYL) diphenhydrAMINE HCl 25 MG Oral Capsule (BENADRYL) 07/28 12:00:00 AM EDT 25 mg Oral active Take 1 capsule by mouth nightly as needed for Sleep for up to 10 days [facility] 1 mg 08/17/2020 12:00:00 AM EDT tablet 30 TAKE ONE TABLET BY MOUTH TWICE A DAY NEEDED TAKE ONE TABLET BY MOUTH TWICE A DAY NEEDED SOLD: 08/17/2020 [facility] 300 mg 08/17/2020 12:00:00 AM EDT capsule 84 TAKE TWO CAPSULES BY MOUTH THREE TIMES A DAY TAKE TWO CAPSULES BY MOUTH THREE TIMES A DAY SOLD: [facility] Clonidine Hydrochloride 0.2 MG Oral Tablet CLONIDINE HCL 08/17/2020 12:00:00 AM EDT tablet 15 TAKE ONE TABLET BY MOUTH CORWIN DAY NEEDED TAKE ONE TABLET BY MOUTH EVERY DAY NEEDED SOLD: 08/17/2020 [facility] benztropine mesylate 1 MG Oral Tablet benztropine (COG ENTIN) tablet 1 mg benztropine (COGENTIN) tablet 1 mg 08/16/2020 09:00:00 PM EDT 1 mg Oral active 1 mg, Oral, 2 Times Daily, First dose (after last modification) on Sun08/16/20 at 2100, For 60 doses [facility] Medication administered onsite Asenapine 10 MG Sublingual Tablet Asenapine Maleate (S APHRIS) SL tablet 10 mg Asenapine Maleate (SAPHRIS) SL tablet 10 mg 08/11/2020 08:00:00 PM EDT 10 mg Sublingual active 10 mg, Subling ual, 2 Times Daily, First dose (after last modification) on Sun08/11/20 at 2000, For 53 doses [facility] Medication administered onsite olanzapine 10 MG Disintegrating Oral Tab let OLANZapine zydis (ZYPREXA) disintegrating tablet 10 mg OLANZapine zydis (ZYPREXA) disintegratin g tablet 10 mg 08/11/2020 03:15:00 PM EDT 10 mg Oral completed 10 mg, Oral, Once, On Sun08/11/20 at 1515, For 1 dose [facility] Medication administered onsite 50 mg 08/09/2020 12:00:00 AM EDT tablet 7 TAKE ONE TABLET BY MOUTH EVERY DAY NEEDED FOR MIGRAINE TAKE ONE TABLET BY MOUTH EVERY DAY NE EDED FOR MIGRAINE SOLD: 08/17/2020 [facility] Asenapine 5 MG Sublingual Tablet Asenapine Maleate (SA PHRIS) SL tablet 5 mg Asenapine Maleate (SAPHRIS) SL tablet 5 mg 08/08/2020 06:30:00 PM EDT 5 mg Sublingual aborted 5 mg, Sublingu al, 2 Times Daily, First dose (after last modification) on Sun08/08/20 at 1830, For 30 days [facility] Medication administered onsite Lurasidone Hydrochloride 40 MG Oral Tablet lurasidone HCl (LATUDA) tablet 20 mg lurasidone HCl (LATUDA) tablet 20 mg 08/07/2020 09:00:00 AM EDT 20 mg Oral aborted 20 mg, Oral, Burt ly Standard, First dose on Sun08/07/20 at 0900, For 30 days
Administer with food.
[facility] Medication administered onsite 1,000 mg 08/07/2020 12:00:00 AM EDT tablet 14 TAKE ONE TABLET BY MOUTH TWICE A DAY FOR SEIZURES TAKE ONE TABLET BY MOUTH TWICE A DAY FOR SEIZURES SOLD : 08/17/2020 [facility] Levetiracetam 500 MG Oral Tablet levETIRAcetam (KEPPRA ) tablet 1,000 mg levETIRAcetam (KEPPRA) tablet 1,000 mg 08/06/2020 09:00:00 PM EDT 1000 mg Oral active 1,000 mg, Oral , 2 Times Daily, First dose on Sun08/06/20 at 2100, For 30 days [facility] Medication administered onsite gabapentin 300 MG Oral Capsule gabapentin (NEURONTIN) capsule 600 mg gabapentin (NEURONTIN) capsule 600 mg 08/06/2020 09:00:00 PM EDT 600 mg Oral active Neuropathic Pain 600 mg, Oral, Three Times D aily Standard, Indications: Neuropathic Pain, First dose on Sun08/06/20 at 2100, For 30 days [facility] Neuropathic Pain Medication administered onsite Buprenorphine 8 MG / Naloxone 2 MG Subli ngual Tablet buprenorphine-naloxone (SUBOXONE) 8-2 MG per sublingual tablet 1 tablet buprenorphine-naloxone (SUBOXONE) 8-2 MG per sublingual tablet 1 tablet 08/06/2020 09:00:00 PM EDT Sublingual active 1 tablet (8 mg of buprenorphine), Sublingual, 2 Times Daily, First dose on Sun08/06/20 at 2100, For 26 doses [facility] Medication administered onsite Hydroxyzine Hydrochloride 50 MG Oral Tablet hydrOXYzin e (ATARAX) tablet 50 mg hydrOXYzine (ATARAX) tablet 50 mg 08/06/2020 07:39:32 PM EDT 50 mg Oral active 50 mg, Oral, Every 6 hours PRN, Anxiety, Starting on Sun08/06/20 at 1939, For 30 days [facility] Medication administered onsite Trazodone Hydrochloride 50 MG Oral Tablet trazodone (D ESYREL) tablet 50 mg trazodone (DESYREL) tablet 50 mg 08/06/2020 07:39:25 PM EDT 50 mg Oral active 50 mg, Oral, Nightly PRN, Sleep, Starting on Sun08/06/20 at 1939, For 30 days [facility] Medication administered onsite Aluminum Hydroxide [...] on Sun08/06/20 at 1939, For 30 days [facility] Medication administered onsite Magnesium Hydroxide [...] creatinine > 2 notify provider before administering.
[facility] Medication administered onsite Acetaminophen 325 [...] mg from all sources in 24 hours.
[facility] Medication administered onsite Clonidine Hydrochloride 0.2 MG Oral Tablet cloNIDine ( CATAPRES) tablet 0.2 mg cloNIDine (CATAPRES) tablet 0.2 mg 08/06/2020 07:36:40 PM EDT 0.2 mg Oral active 0.2 mg, Oral, Three Times Daily-PRN, anxiety, Indications: anxiety, Starting on Sun08/06/20 at 1936, For 30 days [facility] Medication administered onsite benztropine mesylate 1 MG Oral Tablet benztropine (COG ENTIN) tablet 1 mg benztropine (COGENTIN) tablet 1 mg 08/06/2020 07:36:33 PM EDT 1 mg Oral aborted 1 mg, Oral, 2 Times Daily PRN, Tremor, Starting on Sun08/06/20 at 1936, For 30 days [facility] Medication administered onsite 20 mg 08/06/2020 12:00:00 AM EDT tablet 7 TAKE 1 TABLET BY MOUTH AT 8:00 FOR MOOD TAKE 1 TABLET BY MOUTH AT 8:00 FOR MOOD SOLD: 08/17/2020 [facility] Clonidine Hydrochloride 0.2 MG Oral Tablet [...] TOPICALLY DAILY FOR NICOTINE WITHDRAWL SOLD: 08/03/2020 [facility] 1 mg 08/03/2020 12:00:00 AM EDT [...] 600 mg by mouth Three times daily [facility] 250 mg/5 mL 07/01/2020 12:00:00 [...] {capsule_at_bedtime} active Doxepin HCl 25 MG eCW1 ([facility]) Doxepin Hydrochloride 25 MG Oral Capsule Doxepin HCl 25 MG D oxepin HCl 25 MG 03/09/2020 12:00:00 AM EST 1.0 {capsule_at_bedtime} active Doxepin HCl 25 MG eCW1 ([facility]) Doxepin Hydrochloride 25 MG Oral Capsule Doxepin HCl 25 MG D oxepin HCl 25 MG 03/09/2020 12:00:00 AM EST 1.0 {capsule_at_bedtime} active Doxepin HCl 25 MG eCW1 ([facility]) Doxepin Hydrochloride 25 MG Oral Capsule Doxepin HCl 25 MG D oxepin HCl 25 MG 03/09/2020 12:00:00 AM EST 1.0 {capsule_at_bedtime} active Doxepin HCl 25 MG eCW1 ([facility]) Doxepin Hydrochloride 25 MG Oral Capsule Doxepin HCl 25 MG D oxepin HCl 25 MG 03/09/2020 12:00:00 AM EST 1.0 {capsule_at_bedtime} active [facility] Doxepin Hydrochloride 25 MG Oral Capsule Doxepin HCl 25 MG D oxepin HCl 25 MG 03/09/2020 12:00:00 AM EST 1.0 {capsule_at_bedtime} active Doxepin HCl 25 MG eCW1 ([facility]) Doxepin Hydrochloride 25 MG Oral Capsule Doxepin HCl 25 MG D oxepin HCl 25 MG 03/09/2020 12:00:00 AM EST 1.0 {capsule_at_bedtime} active Doxepin HCl 25 MG eCW1 ([facility]) Doxepin Hydrochloride 25 MG Oral Capsule Doxepin HCl 25 MG D oxepin HCl 25 MG 03/09/2020 12:00:00 AM EST 1.0 {capsule_at_bedtime} active Doxepin HCl 25 MG eCW1 ([facility] Doxepin Hydrochloride 25 MG Oral Capsule Doxepin HCl 25 MG D oxepin HCl 25 MG 03/09/2020 12:00:00 AM EST 1.0 {capsule_at_bedtime} active Doxepin HCl 25 MG eCW1 ([facility]) Doxepin Hydrochloride 25 MG Oral Capsule Doxepin HCl 25 MG D oxepin HCl 25 MG 03/09/2020 12:00:00 AM EST 1.0 {capsule_at_bedtime} active Doxepin HCl 25 MG eCW1 ([facility]) Doxepin Hydrochloride 25 MG Oral Capsule Doxepin HCl 25 MG D oxepin HCl 25 MG 03/09/2020 12:00:00 AM EST 1.0 {capsule_at_bedtime} active Doxepin HCl 25 MG eCW1 ([facility]) Doxepin Hydrochloride 25 MG Oral Capsule Doxepin HCl 25 MG D oxepin HCl 25 MG 03/09/2020 12:00:00 AM EST 1.0 {capsule_at_bedtime} active Doxepin HCl 25 MG eCW1 ([facility]) Doxepin Hydrochloride 25 MG Oral Capsule Doxepin HCl 25 MG D oxepin HCl 25 MG 03/09/2020 12:00:00 AM EST 1.0 {capsule_at_bedtime} active Doxepin HCl 25 MG eCW1 ([facility] Doxepin Hydrochloride 25 MG Oral Capsule Doxepin HCl 25 MG D oxepin HCl 25 MG 03/09/2020 12:00:00 AM EST 1.0 {capsule_at_bedtime} active Doxepin HCl 25 MG eCW1 ([facility]) Doxepin Hydrochloride 25 MG Oral Capsule Doxepin HCl 25 MG D oxepin HCl 25 MG 03/09/2020 12:00:00 AM EST 1.0 {capsule_at_bedtime} active Doxepin HCl 25 MG eCW1 ([facility]) Doxepin Hydrochloride 25 MG Oral Capsule Doxepin HCl 25 MG D oxepin HCl 25 MG 03/09/2020 12:00:00 AM EST 1.0 {capsule_at_bedtime} active Doxepin HCl 25 MG eCW1 ([facility]) Doxepin Hydrochloride 25 MG Oral Capsule Doxepin HCl 25 MG D oxepin HCl 25 MG 03/09/2020 12:00:00 AM EST 1.0 {capsule_at_bedtime} active Doxepin HCl 25 MG eCW1 ([facility]) Doxepin Hydrochloride 25 MG Oral Capsule Doxepin HCl 25 MG D oxepin HCl 25 MG 03/09/2020 12:00:00 AM EST 1.0 {capsule_at_bedtime} active Doxepin HCl 25 MG eCW1 ([facility]) Doxepin Hydrochloride 25 MG Oral Capsule Doxepin HCl 25 MG D oxepin HCl 25 MG 03/09/2020 12:00:00 AM EST 1.0 {capsule_at_bedtime} active Doxepin HCl 25 MG eCW1 ([facility]) Doxepin Hydrochloride 25 MG Oral Capsule Doxepin HCl 25 MG D oxepin HCl 25 MG 03/09/2020 12:00:00 AM EST 1.0 {capsule_at_bedtime} active Doxepin HCl 25 MG eCW1 ([facility]) Doxepin Hydrochloride 25 MG Oral Capsule Doxepin HCl 25 MG D oxepin HCl 25 MG 03/09/2020 12:00:00 AM EST 1.0 {capsule_at_bedtime} active Doxepin HCl 25 MG eCW1 ([facility]) Doxepin Hydrochloride 25 MG Oral Capsule Doxepin HCl 25 MG D oxepin HCl 25 MG 03/09/2020 12:00:00 AM EST 1.0 {capsule_at_bedtime} active Doxepin HCl 25 MG eCW1 ([facility]) Doxepin Hydrochloride 25 MG Oral Capsule Doxepin HCl 25 MG D oxepin HCl 25 MG 03/09/2020 12:00:00 AM EST 1.0 {capsule_at_bedtime} active Doxepin HCl 25 MG eCW1 ([facility]) Doxepin Hydrochloride 25 MG Oral Capsule Doxepin HCl 25 MG D oxepin HCl 25 MG 03/09/2020 12:00:00 AM EST 1.0 {capsule_at_bedtime} active Doxepin HCl 25 MG eCW1 ([facility] jimena) 8-2 mg 03/03/2020 12:00:00 AM [...] activ e cloNIDine HCl 0.2 MG eCW1 ([facility] jimena) Clonidine Hydrochloride 0.2 MG Oral Tablet Clonidine H Cl 0.2 MG Clonidine HCl 0.2 MG 12/24/2019 12:00:00 AM EDT 1.0 {tablet} activ e Clonidine HCl 0.2 MG eCW1 ([facility] jimena) Clonidine Hydrochloride 0.2 MG Oral Tablet Clonidine H Cl 0.2 MG Clonidine HCl 0.2 MG 12/24/2019 12:00:00 AM EDT 1.0 {tablet} activ e Clonidine HCl 0.2 MG eCW1 ([facility] jimena) Clonidine Hydrochloride 0.2 MG Oral Tablet Clonidine H Cl 0.2 MG Clonidine HCl 0.2 MG 12/24/2019 12:00:00 AM EDT 1.0 {tablet} activ e Clonidine HCl 0.2 MG eCW1 ([facility]ena) Clonidine Hydrochloride 0.2 MG Oral Tablet Clonidine H Cl 0.2 MG Clonidine HCl 0.2 MG 12/24/2019 12:00:00 AM EDT 1.0 {tablet} activ e Clonidine HCl 0.2 MG eCW1 ([facility]imena) Clonidine Hydrochloride 0.2 MG Oral Tablet Clonidine H Cl 0.2 MG Clonidine HCl 0.2 MG 12/24/2019 12:00:00 AM EDT 1.0 {tablet} activ e Clonidine HCl 0.2 MG eCW1 ([facility]) Clonidine Hydrochloride 0.2 MG Oral Tablet Clonidine H Cl 0.2 MG Clonidine HCl 0.2 MG 12/24/2019 12:00:00 AM EDT 1.0 {tablet} activ e Clonidine HCl 0.2 MG eCW1 ([facility]) Clonidine Hydrochloride 0.2 MG Oral Tablet Clonidine H Cl 0.2 MG Clonidine HCl 0.2 MG 12/24/2019 12:00:00 AM EDT 1.0 {tablet} suspe nded Clonidine HCl 0.2 MG eCW1 ([facility]) Clonidine Hydrochloride 0.2 MG Oral Tablet Clonidine H Cl 0.2 MG Clonidine HCl 0.2 MG 12/24/2019 12:00:00 AM EDT 1.0 {tablet} activ e Clonidine HCl 0.2 MG eCW1 ([facility]) Clonidine Hydrochloride 0.2 MG Oral Tablet Clonidine H Cl 0.2 MG Clonidine HCl 0.2 MG 12/24/2019 12:00:00 AM EDT 1.0 {tablet} activ e Clonidine HCl 0.2 MG eCW1 ([facility]) Clonidine Hydrochloride 0.2 MG Oral Tablet Clonidine H Cl 0.2 MG Clonidine HCl 0.2 MG 12/24/2019 12:00:00 AM EDT 1.0 {tablet} suspe nded Clonidine HCl 0.2 MG eCW1 ([facility]) Clonidine Hydrochloride 0.2 MG Oral Tablet Clonidine H Cl 0.2 MG Clonidine HCl 0.2 MG 12/24/2019 12:00:00 AM EDT 1.0 {tablet} activ e Clonidine HCl 0.2 MG eCW1 ([facility]) Clonidine Hydrochloride 0.2 MG Oral Tablet Clonidine H Cl 0.2 MG Clonidine HCl 0.2 MG 12/24/2019 12:00:00 AM EDT 1.0 {tablet} activ e Clonidine HCl 0.2 MG eCW1 ([facility]) Clonidine Hydrochloride 0.2 MG Oral Tablet Clonidine H Cl 0.2 MG Clonidine HCl 0.2 MG 12/24/2019 12:00:00 AM EDT 1.0 {tablet} activ e Clonidine HCl 0.2 MG eCW1 ([facility]) Clonidine Hydrochloride 0.2 MG Oral Tablet Clonidine H Cl 0.2 MG Clonidine HCl 0.2 MG 12/24/2019 12:00:00 AM EDT 1.0 {tablet} activ e Clonidine HCl 0.2 MG eCW1 ([facility]) Clonidine Hydrochloride 0.2 MG Oral Tablet Clonidine H Cl 0.2 MG Clonidine HCl 0.2 MG 12/24/2019 12:00:00 AM EDT 1.0 {tablet} activ e Clonidine HCl 0.2 MG eCW1 ([facility]) Clonidine Hydrochloride 0.2 MG Oral Tablet Clonidine H Cl 0.2 MG Clonidine HCl 0.2 MG 12/24/2019 12:00:00 AM EDT 1.0 {tablet} activ e Clonidine HCl 0.2 MG eCW1 ([facility]) Clonidine Hydrochloride 0.2 MG Oral Tablet Clonidine H Cl 0.2 MG Clonidine HCl 0.2 MG 12/24/2019 12:00:00 AM EDT 1.0 {tablet} activ e Clonidine HCl 0.2 MG eCW1 ([facility]) Clonidine Hydrochloride 0.2 MG Oral Tablet Clonidine H Cl 0.2 MG Clonidine HCl 0.2 MG 12/24/2019 12:00:00 AM EDT 1.0 {tablet} activ e Clonidine HCl 0.2 MG eCW1 ([facility]) Clonidine Hydrochloride 0.2 MG Oral Tablet Clonidine H Cl 0.2 MG Clonidine HCl 0.2 MG 12/24/2019 12:00:00 AM EDT 1.0 {tablet} activ e Clonidine HCl 0.2 MG eCW1 ([facility]) Clonidine Hydrochloride 0.2 MG Oral Tablet Clonidine H Cl 0.2 MG Clonidine HCl 0.2 MG 12/24/2019 12:00:00 AM EDT 1.0 {tablet} activ e Clonidine HCl 0.2 MG eCW1 ([facility]) Clonidine Hydrochloride 0.2 MG Oral Tablet Clonidine H Cl 0.2 MG Clonidine HCl 0.2 MG 12/24/2019 12:00:00 AM EDT 1.0 {tablet} activ e Clonidine HCl 0.2 MG eCW1 ([facility]) Clonidine Hydrochloride 0.2 MG Oral Tablet Clonidine H Cl 0.2 MG Clonidine HCl 0.2 MG 12/24/2019 12:00:00 AM EDT 1.0 {tablet} activ e Clonidine HCl 0.2 MG eCW1 ([facility]) Clonidine Hydrochloride 0.2 MG Oral Tablet Clonidine H Cl 0.2 MG Clonidine HCl 0.2 MG 12/24/2019 12:00:00 AM EDT 1.0 {tablet} suspe nded Clonidine HCl 0.2 MG eCW1 ([facility]) Clonidine Hydrochloride 0.2 MG Oral Tablet Clonidine H Cl 0.2 MG Clonidine HCl 0.2 MG 12/24/2019 12:00:00 AM EDT 1.0 {tablet} activ e Clonidine HCl 0.2 MG eCW1 ([facility]) Clonidine Hydrochloride 0.2 MG Oral Tablet Clonidine H Cl 0.2 MG Clonidine HCl 0.2 MG 12/24/2019 12:00:00 AM EDT 1.0 {tablet} activ e Clonidine HCl 0.2 MG eCW1 ([facility]) Clonidine Hydrochloride 0.2 MG Oral Tablet Clonidine H Cl 0.2 MG Clonidine HCl 0.2 MG 12/24/2019 12:00:00 AM EDT 1.0 {tablet} activ e Clonidine HCl 0.2 MG eCW1 ([facility]) Clonidine Hydrochloride 0.2 MG Oral Tablet Clonidine H Cl 0.2 MG Clonidine HCl 0.2 MG 12/24/2019 12:00:00 AM EDT 1.0 {tablet} activ e Clonidine HCl 0.2 MG eCW1 ([facility]) Clonidine Hydrochloride 0.2 MG Oral Tablet Clonidine H Cl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 Soft. Mild tenderness in the epigastric area. No organomegaly.Skin: Normal skin color. No rash. Normal skin turgor.Extremities: Extremities exhibit normal ROM. Extremities nontender.Neuro: Oriented X 3. No motor deficit. No sensory deficit.LABS, X-RAYS, AND EKGLaboratory Tests: ETOH: (JENN: 01/12/2021 00:25) ( [facility] 01/12/2021 01:14) Final results Test Result Flag Units (Reference) ALCOHOL <10.0 MG/DL ALCOHOL % 0.00 % (0.00 - 0.01) *FOR MEDICAL PURPOSES ONLY* Beta-HCG, Quant Serum: (JENN: 01/12/2021 00:25) ( OhgRcvd 01/12/2021 01:04) Final results Test Result Flag Units (Reference) HCG QUANT <0.5 mIU/mL Interpretation: Less than 5 mU/mL: Negative 6-10 mU/mL: Borderline (suggest repeat in 48 hours) >10: Positive Approx HCG range (mU/mL) Weeks post LMP 5.4-708 mU/mL 3-4 Weeks 217-37797 mU/mL 5-6 Weeks 4059-183333 mU/mL 7-8 Weeks 81441-850407 mU/mL 9-10 Weeks 41535-57845 mU/mL 12-14 Weeks 91877-46757 mU/mL 15-16 Weeks 8240-26260 mU/mL 17-18 Weeks CMP: (JENN: 01/12/2021 00:25) ( OhgRcvd 01/12/2021 01:14) Final results Test Result Flag Units (Reference) COMPREHENSIVE METABOLIC PANEL COMPREHENSIVE METABOLIC PANEL SODIUM 138 mEq/L (134 - 153) POTASSIUM 4.5 mEq/L (3.6 - 5.0) 8 Clinical Report - Physicians/Mid Levels [facility] Emergency Department [address] [place] [address] Phone #: ext- [phone] 01/11/2021 23:07 Patient: BRUNA LEE Sex: F : 1985 Age: 35y CHLORIDE 100 mEq/L (98 - 107) CO2 26 MEQ/L (22 - 30) GLUCOSE 133 H MG/DL (70 - 99) BUN 11 MG/DL (7 - 21) CREATININE 0.6 L MG/DL (0.7 - 1.5) BUN/CREAT 18 (8 - 27) TOTAL PROTEIN 7.6 G/DL (6.3 - 8.2) ALBUMIN 4.9 G/DL (3.9 - 5.0) GLOBULIN 2.7 GM/DL (2.4 - 3.2) A/G RATIO 1.8 (0.8 - 2.0) CALCIUM 10.1 MG/DL (8.4 - 10.2) TOTAL BILI <0.7 MG/DL (0.2 - 1.3) ALKALINE PHOS 79 U/L (38 - 126) SGOT/AST 59 H U/L (5 - 40) SGPT/ALT 32 U/L (7 - 56) ANION GAP 12.0 mmol/L (8.0 - 16.0) AGE 35 yrs NON-AA GFR >60 mL/min AFR AMER GFR >60 mL/min Male GFR Interprentation 20-49 yrs >60 mL/min Uobfts20-14 yrs >56 mL/min Normal 60-69 yrs >49 mL/min Normal 70-79yrs>42 mL/min Normal 80 and above >35 mL/min Normal Female GFRInterpretation 20-39 yrs >60 mL/min Normal 40-49 yrs >58 mL/minNormal 50-59 yrs >51 mL/min Normal 60-69 yrs >45 mL/min Srawlg23- 79 yrs >39 mL/min Normal 80 and above >32 mL/min NormalCBC w Diff: (JENN: 01/12/2021 00:25) ( MsgRcvd 01/12/2021 00:43) Final results Test Result Flag Units (Reference) CBC W/AUTOMATED DIFF COMPLETE BLOOD COUNT WBC 10.7 10/uL (4.2 - 11.0) RBC 4.03 L 10/uL (4.20 - 5.40) HEMOGLOBIN 12.4 g/dL (12.0 - 16.0) HEMATOCRIT 36.6 L % (37.0 - 47.0) MCV 90.8 fL (81.0 - 101) MCH 30.8 pg (27.0 - 34.0) MCHC 33.9 g/dL (31.0 - 36.0) RDW 13.2 % (11.5 - 14.5) PLATELETS 361 10/uL (150 - 450) MPV 9.5 fL (7.4 - 10.4) NEUT 70.5 % (37.0 - 80.0) LYMPH 20.2 L % (25.0 - 40.0) MONO 7.8 % (3.0 - 8.0) EOS 0.3 % (0.0 - 7.0) BASO 0.5 % (0.0 - 2.5) %IG 0.7 H % (0.0 - 0.0) %NRBC 0.0 % (0.0 - 0.0) #NEUT 7.53 H 10/uL (2.00 - 6.90) #LYMPH 2.16 10/uL (0.60 - 3.40) #MONO 0.83 10/uL (0.00 - 0.90) #EOS 0.03 10/uL (0.00 - 0.70) #BASO 0.05 10/uL (0.00 - 0.20) #IG 0.07 10/uL (0.00 - 0.10) #NRBC 0.00 10/uL (0.00 - 0.00) MANUAL DIFF NOT INDICATED RBC MORPH NOT INDICATEDUA REFLEX TO UA CULTURE: (JENN: 01/11/2021 23:36) ( MsgRcvd 01/12/2021 01:22) Final results 9 Clinical Report - Physicians/Mid Levels [facility] Emergency Department [address] [place] [address] Phone #: ext- [phone] 01/11/2021 23:07 Patient: BRUNA LEE Sex: F : 1985 Age: 35y Test Result Flag Units (Reference) UA REFLEX TO UA CULTURE URINALYSIS SOURCE R COLOR Lt Yellow (NORMAL: Yello CLARITY clear (NORMAL: Clear SPEC GRAVITY 1.005 (1.001 - 1.030 pH 7 (5 - 9) GLUCOSE NORM (NORMAL: Negat BILIRUBIN NEG (NORMAL: Negat KETONE NEG (NORMAL: Negat PROTEIN NEG (NORMAL: Negat NITRITE NEG (NORMAL: Negat BLOOD NEG (NORMAL: Negat LEUK EST NEG (NORMAL: Negat UROBILINOGEN NOR (less than 1.0 MICROSCOPIC Not Indicate Drug Screen-Urine: (JENN: 01/11/2021 23:36) ( MsgRcvd 01/12/2021 01:30) Final results Test Result Flag Units (Reference) DRUG SCREEN URINE URINE DRUG SCREEN AMPHETAMINES PRESUMP POS A (NORMAL: NEGAT BARBITURATES NEGATIVE (NORMAL: NEGAT BENZO NEGATIVE (NORMAL: NEGAT COCAINE NEGATIVE (NORMAL: NEGAT THC NEGATIVE (NORMAL: NEGAT OPIATES NEGATIVE (NORMAL: NEGAT PCP NEGATIVE (NORMAL: NEGAT \\BLDo\\URINE DRUG SCREEN INTERPRETATION\\BLDx\\ THE CUTOFFF LEVELS FOR DETECTION ARE FOLLOWS: AMPHETAMINES 1000 ng/ml BARBITUARATES 200 ng/ml BENZODIAZEPINES 100 ng/ml THC 50 ng/ml PHENCYCLIDINE 25 ng/ml OPIATES 300 ng/ml COCAINE 300 ng/ml ALL POSITIVES ARE CONSIDERED PRESUMPTIVE POSITIVE CONFIRMATION WILL BE PERFORMED AT PHYSICIAN REQUEST..PROGRESS AND PROCEDURESCourse of Care: 00:44 01/12/21. 35 y/o female presented to the ER with complaint of burning sensationon her mouth after she drank water, she states that she has a chemical burn and that her family is out toget her. they have been stalking her for several months, she also used methamphetamines today. shehad a normal exam except that she is delusional and paranoid. 00:45 01/12/21. Patient started getting agitates and states that people are spraying chemicals on her face and that it is coming from the ceiling. she started running away to the lobby. charge nurse went after her. ordered Benadryl, Ativan and haldol 01:34 01/12/21. Patient is calmer and is sedated after b enadryl, Ativan and Haldol 10 Clinical Report - Physicians/Mid Levels [facility] Emergency Department [address] [place] [address] Phone #: ext- [phone] 01/11/2021 23:07 Patient: BRUNA LEE Sex: F : 1985 Age: 35y 03:53 01/12/21. Patient cleared medically. awaiting psych transfer 07:30 01/12/21. care assumed at shift change; H, workup all reviewed; waiting for [facility] psych to call back since [facility] is on psych diversion; pt sleeping comfo rtably 11:33 01/12/21. case discussed w Dr. Martinez, psychiatrist, and Avery Stewart, DIRECTOR OF HOME HEALTH SERVICES, at [facility] who asked me to reassess pt which I tried; I started asking her questions about her drug use and then she went off on me screaming that her family is poisoning her, giving her chemicals, cursing obscenities at us, trying to charge out towards the when we tried to stop her, "code strong" was called, B52 cocktail ordered, police called, and pt brought down to [facility] by force for her safety and safety of others, waiting for all of the above 11:48 01/12/21. pt is now sleeping comfortably, Dr. Martinez, called back, case discussed, pt accepted for transfer. ED care transferred. Case discussed with DR Hagen. Brief hx: see HP. Pending items: (transfer). Tentative impression: drug induced psychosis. Expected disposition: transfer. Critical care performed (60 minutes). Time is exclusive of separately billable procedures. Time includes: direct patient care, patient reassessment, coordin ation of patient care, interpretation of data (laboratory data), medical consultation and documentation of patient care- see progress notes. Patient counseled in person regarding the patient's stable condition, test results, diagnosis and need for follow-up. Patient agrees with plan of care. Disposition: Benefits, risks and alternatives to transfer explained. Transferred to [facility]. Summary of care (CCDA) provided to transport team and transfer facility. CPEP. 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 01/12/2021 18:45) Name Value Range Interpretation Code Description Data [place] rce(s) Supporting Document(s) ID Date Data Source [id number] 01/13/2021 08:04:10 AM EST [facility] NT INFORMATIONPatient MRN Name Date of Age Gend*PT [id number] Bruna Lee 1985 35 years F CPET Location Admission Date/Time Visit ID Attending [id number] 01/12/21 1636 --- Petr Hood MD([id number]) EPI ID CSN Admitting Provider [id number] ---CPEP Discharge NotePatient Name: Bruna ComePatient at CPEP: 01/12/21 1421Date and Time of Assessment: 01/13/2021, 8:02 [facility] Complaint:Chief ComplaintPatient presents with Psychiatric Evaluation Pt transfer from [place] after meth use and being paranoid. Pt extremely medaffected upon arrival and unable to participate in triage (recieved 50mgbenedryl, 4mg atvian, and 10mg haldol at 1139 per EMS). SILVA SI/HI/AVHAge: 35 yearsRace: White or CaucasianGender: femaleChart Reviewed and Patient ExaminedDischarge to: HomeHistory of Present IllnessPatient InfoHistory provided by: (Patton)History limited by: condition of the patientLanguage interpreter deaf used?: NoHPI: Mental Health ProblemPresenting Symptoms: anxiety, bizarre behavior, aggressive behavior, agitationPatient accompanied by: law enforcementDegree of incapacity (severity) : mildDuration: 1 dayTiming: intermittentProgression: waxing and waningChronicity: recurrentContext : drug abuseTreatment compliance: untreatedTime since last psychoactive medication taken: 00Relieved by: none triedIneffective Treatments: none triedAssociated sym ptoms: anhedonia, fatigueRisk factors: substance abuseHPI comments: 35-year-old white female with a history of mood dysregulationassociated with illicit drugs predominantly methamphetamineOutside Treatment HistoryTreatment History Location Date of Last Tx Type of Tx Tx Reason/Dx Tx Length of Stay Tx helpful?Drug/Alcohol Rehab? Records Requested? Comments utaTitleDocumented / Reviewed: 01/12/2021 4:00 PMSelf Harm History :No Current Self Harm: Yes SELF INJURY TYPE APPROX DATE/AGE COMMENTS utaSuicide History :No Current Suicide Attempt: YesSUICIDE METHOD APPROX DATE/AGE MEDICAL CARE? SUICIDE REASON utaSubstance Use SUBSTANCE ROUTE OF ADMINISTRATION AGE AT FIRST USE SUBSTANCE LAST TIME USEDSUBSTANCE PATTERN OF USE SUBSTANCE PATTERN OF ABSTINANCE Comments methamphetamine unknown per [place] documentation alcohol occasional per [place] documentationHistory reviewed. No pertinent family history.Social HistoryTobacco Use Smoking status: Current Every Day Smoker Smokeless tobacco: Never UsedSubstance Use Topics Alcohol use: Not on file Drug use: Not on fileSocial HistorySubstance and Sexual ActivitySexual Activity Not on filePast Medical History:Diagnosis Date ADHD Anxiety Chronic abdominal pain Depression GERD (gastroesophageal reflux disease) Irritable bowel disease Peptic ulcer Polysubstance abuse Schizophrenia SeizuresPast Surgical History:Procedure Laterality Date HERNIA REPAIRCare Coordination/CollateralReview of SystemsPsychiatricPsychiatric: Anxiety, Behavioral Problems, Thought DisorderReview of SystemsAllergic/Immunologic: No pertinent findingsCardiovascular : No pertinent findingsConstitutional Symptoms: No pertinent findingsEndocrine: No pertinent findingsEars, Nose, Mouth and Throat: No pertinent findingsEyes: No pertinent findingsGastrointestinal: No pertinent findingsGenitourinary: No pertinent findingsHemeatological/Lymphatic: No pertinent findingsMusculoskeletal: No pertinent findingsNeurological : No pertinent findingsRespiratory: No pertinent findingsSkin: No pertinent findingsVital SignsBP 103/70 | Pulse 95 | Temp 98.3 F (Oral) | Resp 16 | Ht 5' | Wt 90 kg |LMP (LMP Unknown) | SpO2 97% | BMI 38.75 kg/m Psychiatric ExamMental Status ExamGeneral Appearance: Appears Stated AgeBuild/Stature: TallPosture: WNLHygiene/Grooming: Good HygieneClothing: Appropriately DressedEye Contact: GoodSpeech: ClearPsychomotor Activity: WNLMood: GoodAffect: FullPerceptual Disturbances: Denied and none evidantDelusions: NoneThought Process: Linear and LogicalThought Content: WNLSuicidal Ideation: Denies suicidal thoughtsHomicidal Ideation: Denies homicidal thoughtsRemote Memory: IntactRecent Memory: IntactInsight: FairJudgment: FairOrientation: Appropriately Oriented p7Tkselyzn Toward Examiner: CooperativeAssociations: No loosening evidentFund of Knowledge: FairConcentration: FairAttention Span: FairCognition: IntactLanguage: Fluent in English-SSRS Suicide Screening:Adult Risk of Suicide Screenin. In the past three months, have you wished you were or wished you couldgo to sleep and not wake up?: No2. In the past three months, have you actually had any thoughts of killingyourself?: No6. Have you done anything, started to do anything, or prepared to do anything toend your life?: No7.Have you made a suicide attempt in your lifetime (took action to end yourlife)? : NoRisk Factors:Risk Assessment - Risk FactorsDiagnoses & Symptoms of Concern: : Psychotic Disorder, Substance Use DisordersProtective Factors:Risk Assessment - Protective FactorsProtective Factors:: Access to clinical interventions, Supportive social networkor familySuicide Risk Level:: LowClinical Formulation:: NO harmDischarge MedicationsPatient's MedicationsNew Prescriptions ARIPIPRAZOLE (ABILIFY) 2 MG TABLET Take 2 tablets (4 mg total) by mouthdailyPrevious Medications BENZTROPINE (COGENTIN) 1 MG TABLET Take 1 mg by mouth 2 (two) times a day asneeded BUSPIRONE (BUSPAR) 10 MG TABLET Take 10 mg by mouth 2 (two) times a day CLONIDINE (CATAPRES) 0.2 MG TABLET Take 0.2 mg by mouth 3 (three) times aday as needed ESCITALOPRAM (LEXAPRO) 10 MG TABLET Take 10 mg by mouth daily FUROSEMIDE (LASIX) 20 MG TABLET Take 20 mg by mouth daily GABAPENTIN (NEURONTIN) 600 MG TABLET Take 600 mg by mouth 3 (three) times aday LEVETIRACETAM (KEPPRA) 500 MG TABLET Take 1,000 mg by mouth 2 (two) times aday PRAZOSIN (MINIPRESS) 1 MG CAPSULE Take 1 mg by mouth nightly as needed SENNA (SENOKOT) 8.6 MG TABS Take 17.2 mg by mouth 2 (two) times a day asneeded TRAZODONE (DESYREL) 100 MG TABLET Take 100 mg by mouth nightly as needed forsleepModified Medications No medications on fileDiscontinued Medications No medications on fileDiagnosis1. Psychosis, unspecified psychosis type2. Methamphetamine abuseLabs Obtained /Results:Labs Reviewed - No data to displayHospital Course:Patient not suicidal and not psychotic and agreed to need for substance abusetreatmentPatient's lethality of harming self is minimal. Not suicidal or homicidal atthis time. Staff comfortable with the discharge. Can be safely discharge at thistime. . Urged to keep all outpatient appointments and to refrain from usingdrugs and alcohol at this timeAssessment / Treatment Plan / Discharge PlanAssessment / Discharge PlanningPlan/Assessment #1: dcPlan/Assessment #2: offer substance abuse treatment and MCOProgress Towards DischargeBilling Code: [id number] signed Kim Hood MD01/13/21 0804 Name Value Range Interpretation Code Description Data [place] rce(s) Supporting Document(s) ID Date Data Source [id number] 01/12/2021 04:47:00 PM EST [facility] GilbertPATIE NT INFORMATIONPatient MRN Name Date of Age Gend*PT [id number] Bruna Lee 1985 35 years F CPEPPT Location Admission Date/Time Visit ID Attending ProviderNONE 01/12/21 1636 --- Apurva Patton MD([id number]) EPI ID CSN Admitting Provider [id number] ---CPEP PSYCHIATRIC ASSESSMENTPatient Name: Bruna Welch at CPEP: 01/12/21 1421Psychiatrist First Contact: Yes (01/12/21 1616 : Apurva Patton MD)Chief ComplaintChief ComplaintPatient presents with Psychiatric Evaluation Pt transfer from [place] after meth use and being paranoid. Pt extremely medaffected upon arrival and unable to participate in triage (recieved 50mgbenedryl, 4mg atvian, and 10mg haldol at 1139 per EMS). SILVA SI/HI/AVHCurrent StressorsHistory of Present [id number] white female admitted due to escalating behavioral problemsassociated with methamphetamine intoxication and abuse on a frequent basis ofmental intoxicated and passed out. She continues to display low frustrationtolerance and reactive behavior. High anxiety paranoia and poorly regulated andrapidly shifting moods.In view of her display of examination with primary and secondary psychosis,anxiety, depressed mood with dysphoria please admit to CPEP for 15 precautionarymeasures.She would benefit from illicit drug rehabilitation after psychiatricstabilization.Patient InfoHistory provided by: patient, policeHistory limited by: condition of the patientLanguage interpreter deaf used?: NoHPI: Mental Health ProblemPresenting Symptoms: anxiety, bizarre behavior, aggressive behavior, agitationPatient accompanied by: law enforcementDegree of incapacity (severity) : mildDuration: 1 dayTiming: intermittentProgression: waxing and waningChronicity: recurrentContext : drug abuseTreatment compliance: untreatedTime since last psychoactive medication taken: 00Relieved by: none triedIneffective Treatments: none triedAssociated symptoms: anhedonia, fatigueRisk factors: substance abuseHPI comments: 35-year-old white female with a history of mood dysregulationassociated with illicit drugs predominantly methamphetamineCare Coordination/CollateralHistoryPast Psychiatric HistoryOutside Treatment HistoryTreatment History Location Date of Last Tx Type of Tx Tx Reason/Dx Tx Length of Stay Tx helpful?Drug/Alcohol Rehab? Records Requested? Comments utaPast Suicide / Self Harm HistoryTitleDocumented / Reviewed: 01/12/2021 4:00 PMSelf Harm History :No Current Self Harm: Yes SELF INJURY TYPE APPROX DATE/AGE COMMENTS utaSuicide History :No Current Suicide Attempt: YesSUICIDE METHOD APPROX DATE/AGE MEDICAL CARE? SUICIDE REASON utaPsychosocial AssessmentSubstance Use SUBSTANCE ROUTE OF ADMINISTRATION AGE AT FIRST USE SUBSTANCE LAST TIME USEDSUBSTANCE PATTERN OF USE SUBSTANCE PATTERN OF ABSTINANCE Comments methamphetamine unknown per [place] documentation alcohol occasional per [place] documentationFamily HistoryHistory reviewed. No pertinent family history.Social HistorySocial HistoryTobacco Use Smoking status: Current Every Day Smoker Smokeless tobacco: Never UsedSubstance Use Topics Alcohol use: Not on file Drug use: Not on fileSocial HistorySubstance and Sexual ActivitySexual Activity Not on fileRelationships and Living SituationRelationship StatusRelationship Status: (silva pt med affected)Sexual PreferenceSexual Preference: None SpecifiedParental StatusParental Status: UnknownResidence/HomelessResides in : Homeless (per [place])Was the patient homeless at any time within the past 6 months?: YesEducation / Employment / HistoryAcademicIs the patient attending school or receiving tutoring or instruction?: (silva ptmed affected)Financial/EmploymentCurrent Income: Other (Comments)Current Employment Status: Other (Comments)Employment Description : pt med affectedMilitary HistoryMilitary History: (pt med affected)Legal HistoryLegal HistoryHistory of Legal Problems: (pt med affected)Childhood Abuse/NeglectChildhood Abuse/NeglectWas patient abused or neglected as a child/adolescent?: UnknownAdult Abuse/NeglectIs/Was the patient abused or neglected as an adult?: UnknownOngoing Safety ConcernsOngoing Safety Concerns : NoScreeningSafe in Home: Unable to assessSafe in Relationship: Unable to assessAre you in immediate danger?: Unable to assessIs your partner at the health facility now?: Unable to assessDo you want to (or have to) go home with your partner?: Unable to assessDo you have someplace safe to go?: Unable to assessHave there been threats or direct abuse of you or your children?: Unable toassessAre you afraid your life may be in danger?: Unable to assessHas the violence gotten worse or is it getting scarier? More often?: Unable toassessHas your partner used weapons, alcohol or drugs?: Unable to assessHas your partner ever held you or your children against your will?: Unable toassessDoes your partner ever watch you closely, follow you or stalk you?: Unable toassessHas your partner ever threatened to kill you, him/herself or your children?:Unable to assessMedical/Surgical HistoryPast Medical History:Diagnosis Date ADHD Anxiety Chronic abdominal pain Depression GERD (gastroesophageal reflux disease) Irritable bowel disease Peptic ulcer Polysubstance abuse Schizophrenia SeizuresPast Surgical History:Procedure Laterality Date HERNIA REPAIRReview of SystemsPsychiatricPsychiatric: Anxiety, Behavioral Problems, Thought DisorderReview of SystemsAllergic/Immunologic: No pertinent findingsCardiovascular : No pertinent findingsConstitutional Symptoms: No pertinent findingsEndocrine: No pertinent findingsEars, Nose, Mouth and Throat: No pertinent findingsEyes: No pertinent findingsGastrointestinal: No pertinent findingsGenitourinary: No pertinent findingsHemeatological/Lymphatic: No pertinent findingsMusculoskeletal: No pertinent findingsNeurological : No pertinent findingsRespiratory: No pertinent findingsSkin: No pertinent findingsVital SignsBP (!) 85/55 | Pulse 86 | Temp 98.2 F (Oral) | Resp 16 | Ht 5' | Wt 90 kg| LMP (LMP Unknown) | SpO2 97% | BMI 38.75 kg/m Physical Dexterity CommentsMuscle Strength and Tone: Strength and tone within normal limitsGait and Station: Gait steady and station within normal limitsPsychiatric Specialty ExaminationAdult Initial Mental Status ExamConstitutional Exam: Appears Stated AgeBuild/Stature: WNLPosture: WNLHygien e/Grooming: Fair HygieneClothing: Hospital AttireEye Contact: AvoidantSpeech: Underproductive, AggressivePsychomotor Activity: AcceleratedMood: Angry, Anxious, IrritableAffect: ConstrictedPerceptual Disturbances: AuditoryDelusions: ControlThought Process: Circumstantial, TangentialThought Content: Paranoid, DepressiveSuicidal Ideation: Suicidal with Intent but No PlanRemote Memory: Deficits NotedRecent Memory: Deficits NotedInsight: PoorJudgment: PoorAttitude Toward Examiner: Hostile, DefensiveAssociations: Loosening evidentFund of Knowledge: PoorConcentration: PoorAttention Span: PoorCognition: Imp airedLanguage: Fluent in EnglishAdult Risk of Suicide Screenin. In the past three months, have you wished you were or wished you couldgo to sleep and not wake up?: No2. In the past three months, have you actually had any thoughts of killingyourself?: No6. Have you done anything, started to do anything, or prepared to do anything toend your life?: No7.Have you made a suicide attempt in your lifetime (took action to end yourlife)? : NoRisk Assessment - Risk FactorsDiagnoses & Symptoms of Concern: : Psychotic Disorder, Substance Use DisordersRisk Assessment - Protective FactorsSuicide Risk Level:: LowClinical Formulation:: 35-year-old white female with a history of mooddysregulation associated with illicit drugs methamphetamine presented withdisorganized speech and behavior with severe delusionsFirearmsWas threat made to harm self/others with a firearm: NoDoes the patient own or have access to firearms: (silva)Diagnosis1. Psychosis, unspecified psychosis type2. Methamphetamine abuseLabs ResultsLabs Reviewed - No data to displayAssessment / Treatment Plan / Discharge PlanAssessment / Discharge PlanningPlan/Assessment #1: 35-year-old white female admitted to CPAP due to escalatingbehavioral problems and psychosis associated with methamphetamine intoxicationand abusePlan/Assessment #2: Supportive therapy psychoeducation redirectionPlan/Assessment #3: Will benefit from illicit drug rehabilitation afterpsychiatric stabilizationPlan/Assessment Additional Info: Take medications as prescribedProgress Towards DischargeMDMNumber of Diagnosis or Management Options:[] Minimal [] Limited [] Multiple [] ExtensiveAmount/Complexity of Data Reviewed:[] Minimal [] Limited [] Multiple [] ExtensiveMore than 50% of this Evaluation in:[] Coordination of Care [] Treatment Planning [] Team Meeting [] Discharge Planning [] Other:[] Counseling [] Coping Skills [] Management Options [] Re:[] Medication Review [] Pt challenges need for medication [] Pt fearful of side effects [] Too early to evaluate effect [] No changes [] No side effectsBilling Code: [id number] signed byApurva Patton MD01/12/21 164 Name Value Range Interpretation Code Description Data [place] rce(s) Supporting Document(s) ID Date Data Source [id number] 01/12/2021 07:45:00 AM EST [facility] Name Value Range Interpretation Code Description Data [place] rce(s) Supporting Document(s) COVID19 Case rprt NOT DETECTED [facility] This lab was ordered by [facility] and reported by [facility]. ID Date Data Source [id number] 01/12/2021 09:44:00 AM [facility] NOT DETECTEDNOT DETECTED{ PROC EDURAL CONTROL VALID KIT LOT # _[id number] 01/12/21.MD . KIT EXP DATE _07.29.21 01/12/21. . NORMAL RANGE IS NOT DETECTEDThe COVID-19 assay is a rapid molecular in vitro diagnostic testutilizing an isothermal nucleic acid amplification technology for thequalitative detection of nucleic acid from the SARS-CoV-2 viral RNA in directnasal or nasopharyngeal swabs. Testing should be performed within the first 7days of the onset of symptoms.NEGATIVE RESULTS SHOULD BE TREATED PRESUMPTIVE AND, IF INCONSISTENT WITHCLINICAL SIGNS AND SYMPTOMS OR NECESSARY FOR PATIENT MANAGEMENT, SHOULD BETESTED WITH DIFFERENT AUTHORIZED OR CLEARED MOLECULAR TESTS. NEGATIVE RESULTSDO NOT PRECLUDE SARS-CoV-2 INFECTION AND SHOULD NOT BE USED THE SOLE BASISFOR PATIENT MANAGEMENT DECISIONS. Name Value Range Interpretation Code Description Data [place] rce(s) Supporting Document(s) ID Date Data Source [id number] 01/12/2021 07:46:00 AM [facility] Name Value Range Interpretation Code Description Data [place] rce(s) Supporting Document(s) SALICYLATE <0.3 mg/dL 2.0 - 20.0 L [facility] ID Date Data Source [id number] 01/12/2021 07:45:00 AM [facility] Name Value Range Interpretation Code Description Data [place] rce(s) Supporting Document(s) Acetaminophen [Presence] in Urine <5.0 UG/ML 0.0 - 30.0 [facility] ID Date Data Source [id number] 01/12/2021 01:14:00 AM [facility] Name Value Range Interpretation Code Description Data [place] rce(s) Supporting Document(s) Ethanol [Moles/volume] in Blood <10.0 MG/DL [facility] ALCOHOL % 0.00 % 0.00 - 0.01 [facility] *FOR MEDICAL PURPOSES ONLY * ID Date Data Source [id number] 01/12/2021 01:14:00 AM EST [facility] Name Value Range Interpretation Code Description Data [place] rce(s) Supporting Document(s) COMPREHENSIVE METABOLIC PANEL [facility] COMPREHENSIVE METABOLIC PANEL Sodium [Moles/volume] in Serum or Plasma 138 mEq/L 134 - 153 [facility] Potassium [Moles/volume] in Serum or Plasma 4.5 mEq/L 3.6 - 5.0 [facility] Chloride [Moles/volume] in Serum or Plasma 100 mEq/L 98 - 107 [facility] Carbon dioxide, total [Moles/volume] in Serum or Plasma 26 MEQ/L 22 - 30 [facility] Glucose [Mass/volume] in Serum or Plasma 133 MG/DL 70 - 99 H [facility] BUN 11 MG/DL 7 - 21 [facility] Creatinine [Mass/volume] in Serum or Plasma 0.6 MG/DL 0.7 - 1.5 L [facility] BUN/CREAT 18 8 - 27 [facility] Protein [Mass/volume] in Serum or Plasma 7.6 G/DL 6.3 - 8.2 [facility] Albumin [Mass/volume] in Serum or Plasma 4.9 G/DL 3.9 - 5.0 [facility] Globulin [Mass/volume] in Serum by calculation 2.7 GM/DL 2.4 - 3.2 [facility] A/G RATIO 1.8 0.8 - 2.0 [facility] Calcium [Mass/volume] in Serum or Plasma 10.1 MG/DL 8.4 - 10.2 [facility] Bilirubin.total [Mass/volume] in Serum or Plasma <0.7 MG/DL 0.2 - 1.3 [facility] Alkaline phosphatase [Enzymatic activity/volume] in Serum or Plasma 79 U/L 38 - 126 [facility] Aspartate aminotransferase [Enzymatic activity/volume] in Serum or Plasma 59 U/L 5 - 40 H [facility] Alanine aminotransferase [Enzymatic activity/volume] in Seru m or Plasma 32 U/L 7 - 56 [facility] Anion gap 3 in Serum or Plasma 12.0 mmol/L 8.0 - 16.0 [facility] AGE 35 yrs [facility] NON-AA GFR >60 mL/min [facility] AFR AMER GFR >60 mL/min [facility] Male GFR In [...] >32 mL/min Normal ID Date Data Source [id number] 01/12/2021 01:04:00 AM EST [facility] Name Value Range Interpretation Code Description Data [place] rce(s) Supporting Document(s) Choriogonadotropin.intact [Units/volume] in Serum or Plasma <0.5 mIU/ mL [facility] Interpr etation: Less than 5 mU/mL: Negative 6-10 mU/mL: Borderline (suggest repeat in 48 hours) >10: Positive Approx HCG range (mU/mL) Weeks post LMP 5.4-708 mU/mL 3-4 Weeks [phone] mU/mL 5-6 Weeks 4059-217305 mU/mL 7-8 Weeks 05463-799199 mU/mL 9-10 Weeks 09773-88302 mU/mL 12-14 Weeks 74371-39023 mU/mL 15-16 Weeks 8240- 31890 mU/mL 17-18 Weeks ID Date Data Source [id number] 01/12/2021 12:43:00 AM EST [facility] Name Value Range Interpretation Code Description Data [place] rce(s) Supporting Document(s) CBC W/AUTOMATED DIFF [facility] COMPLETE BLOOD COUNT Leukocytes [#/volume] in Blood by Automated count 10.7 10^3/uL 4.2 - 11.0 [facility] Erythrocytes [#/volume] in Blood by Automated count 4.03 10^6/uL 4. 20 - 5.40 L [facility] Hemoglobin [Mass/volume] in Blood 12.4 g/dL 12.0 - 16.0 [facility] Hematocrit [Volume Fraction] of Blood by Automated count 36.6 % 3 7.0 - 47.0 L [facility] Erythrocyte mean corpuscular volume [Entitic volume] by Auto mated count 90.8 fL 81.0 - 101 [facility] Erythrocyte mean corpuscular hemoglobin [Entitic mass] by Automated count 30.8 pg 27.0 - 34.0 [facility] Erythrocyte mean corpuscular hemoglobin concentration [Mass/volume] by Automated count 33.9 g/dL 31.0 - 36.0 [facility] Erythrocyte distribution width [Ratio] by Automated count 13.2 % 11.5 - 14.5 [facility] Platelets [#/volume] in Blood by Automated count 361 10^3/uL 150 - 45 0 [facility] Platelet mean volume [Entitic volume] in Blood by Automated count 9.5 fL 7.4 - 10.4 [facility] Neutrophils/100 leukocytes in Blood by Automated count 70.5 % 37. 0 - 80.0 [facility] Lymphocytes/100 leukocytes in Blood by Manual count 20.2 % 25.0 - 40.0 L [facility] Monocytes/100 leukocytes in Blood by Automated count 7.8 % 3.0 - 8.0 [facility] Eosinophils/100 leukocytes in Blood by Automated count 0.3 % 0.0 - 7.0 [facility] Basophils/100 leukocytes in Blood by Automated count 0.5 % 0.0 - 2.5 [facility] %IG 0.7 % 0.0 - 0.0 H [facility] %NRBC 0.0 % 0.0 - 0.0 [facility] Neutrophils [#/volume] in Blood by Automated count 7.53 10^3/uL 2.00 - 6.90 H [facility] Lymphocytes [#/volume] in Blood by Automated count 2.16 10^3/uL 0.60 - 3.40 [facility] Monocytes [#/volume] in Blood by Automated count 0.83 10^3/uL 0.00 - 0.90 [facility] Eosinophils [#/volume] in Blood by Automated count 0.03 10^3/uL 0.00 - 0.70 [facility] Basophils [#/volume] in Blood by Automated count 0.05 10^3/uL 0.00 - 0.20 [facility] #IG 0.07 10^3/uL 0.00 - 0.10 [facility] #NRBC 0.00 10^3/uL 0.00 - 0.00 [facility] MANUAL DIFF NOT INDICATED [facility] RBC MORPH NOT INDICATED [facility] ID Date Data Source [id number] 01/12/2021 01:29:00 AM EST [facility] Name Value Range Interpretation Code Description Data [place] rce(s) Supporting Document(s) DRUG SCREEN URINE [facility] URINE DRUG SCREEN Amphetamine [Presence] in Urine by Screen method PRESUMP POS ZAYNAB L: NEGATIVE [facility] BARBITURATES NEGATIVE NORMAL: NEGATIVE [facility] BENZO NEGATIVE NORMAL: NEGATIVE [facility] COCAINE NEGATIVE NORMAL: NEGATIVE [facility] Tetrahydrocannabinol [Presence] in Urine NEGATIVE NORMAL: NEGATIVE [facility] OPIATES NEGATIVE NORMAL: NEGATIVE [facility] Phencyclidine [Presence] in Urine by Screen method NEGATIVE NOR MAL: NEGATIVE [facility] \\BLDo\\URINE DRUG SCR EEN INTERPRETATION\\BLDx\\ THE CUTOFFF LEVELS FOR DETECTION ARE FOLLOWS: AMPHETAMINES 1000 ng/ml BARBITUARATES 200 ng/ml BENZODIAZEPINES 100 ng/ml THC 50 ng/ml PHENCYCLIDINE 25 ng/ml OPIATES 300 ng/ml COCAINE 300 ng/ml ALL POSITIVES ARE CONSIDERED PRESUMPTIVE POSITIVE CONFIRMATION WILL BE PERFORMED AT PHYSICIAN REQUEST. ID Date Data Source [id number] 01/12/2021 01:21:00 AM EST [facility] Name Value Range Interpretation Code Description Data [place] rce(s) Supporting Document(s) UA REFLEX TO UA CULTURE [facility] URINALYSIS SOURCE R [facility] COLOR Lt Yellow NORMAL: Yellow [facility] CLARITY clear NORMAL: Clear [facility] Specific gravity of Urine by Test strip 1.005 1.001 - 1.030 [facility] pH 7 5 - 9 [facility] Glucose [Mass/volume] in Urine by Test strip NORM NORMAL: Negat merari [facility] Bilirubin.total [Presence] in Urine by Test strip NEG NORMAL: Negative [facility] Ketones [Presence] in Urine by Test strip NEG NORMAL: Negative [facility] Protein [Mass/volume] in Urine by Test strip NEG NORMAL: Negat merari [facility] Nitrite [Presence] in Urine by Test strip NEG NORMAL: Negative [facility] BLOOD NEG NORMAL: Negative [facility] Leukocyte esterase [Presence] in Urine by Test strip NEG ZAYNAB L: Negative [facility] Urobilinogen [Mass/volume] in Urine by Test strip NOR less kenna n 1.0 mg/dL [facility] MICROSCOPIC Not Indicate [facility] ID Date Data Source [id number] 12/27/2020 08:52:00 AM EDT [facility] Name Value Range Interpretation Code Description Data [place] rce(s) Supporting Document(s) SARS coronavirus 2 RNA [Presence] in Res piratory specimen by MARK with probe detection NEGATIVE [facility] This lab was ordered by [facility] a nd reported by [facility]. ID Date Data Source [id number] 11/07/2020 04:47:00 AM EDT [facility] Name Value Range Interpretation Code Description Data [place] rce(s) Supporting Document(s) SARS coronavirus 2 RNA [Presence] in Res piratory specimen by MARK with probe detection NEGATIVE [facility] This lab was ordered by [facility] a nd reported by [facility]. ID Date Data Source [id number] 11/03/2020 11:35:00 AM EDT [facility] 1 OrderSheet [facility] Emergency Department [address] [place] [address] Phone #: ext- [phone] 11/03/2020 11:35 Patient: [...] RN, M.D.;Lipase STAT 14:14 11/03/2020 14:24 Evonne Bahtti RN, M.D.;UA Reflex to UA 14:14 11/03/2020 14:44 [facility] Evonne Hagen Tiffany ER M.D.; Ujaj3Nptidm Acid STAT 14:14 11/03/2020 14:24 Evonne Bhatti RN, M.D.;Beta-HCG, Qual STAT 14:14 11/03/2020 14:24 [facility] Evonne Hagen RN, M.D.;DIAGNOSTIC STUDY ORDERSOrder Description Priority Entered Acknowledged InitialedMEDICATION/IV/DRIP/FLUID ORDERSOrder Description Priority Entered Acknowledged InitialedNS IV 1000 mL 14:14 11/03/2020 Cancelled: Physician Order 15:06 Turrin,Bolus: : Bolus 1000 Turrin, Pepe martinezo Evonne M.DJayromL (X1) M.DJayro;Phenergan IV 25mg 14:14 11/03/2020 Cancelled: Duplicate Order 15:05 Turrin,in 50mL NS, give Turrin, Evonne Evonne M.D.wide open: 25 mg M.D.;(NOW x1, HIGH 2 OrderSheet [facility] Emergency Department [address] [place] [address] Phone #: ext- [phone] 11/03/2020 11:35 Patient: BRUNA LEE Sex: F : 1985 Age: 35yALERTMEDICATION)Protonix IV Push 40 14:14 11/03/2020 Cancelled: Duplicate Order 15:05 Hieu,mg (in 10 mL NS, Evonne Hagen M.D.administer [...] rce(s) Supporting Document(s) ID Date Data Source [id number] 11/03/2020 11:35:00 AM EDT [facility] 1 Medication Reconciliation Report [facility] Emergency Department [address] [place] [address] Phone #: ext- [phone] 11/03/2020 11:35 Patient: [...] Value Range Interpretation Code Description Data [facility](s) Supporting Document(s) ID Date Data Source [id number] 11/03/2020 11:35:00 AM EDT [facility] 1 Medication Administration Record [facility] Emergency Department [address] [place] [address] Phone #: ext- [phone] 11/03/2020 11:35 Patient: [...] rce(s) Supporting Document(s) ID Date Data Source [id number] 11/03/2020 11:35:00 AM EDT [facility] 1 General Instructions [facility] Emergency Department [address] [place] [address] Phone #: ext- [phone] 11/03/2020 11:35 Patient: [...] ADDITIONAL INFORMATIONViral Diarrhea (Adult) 2 General Instructions [facility] Emergency Department [address] [place] [address] Phone #: [phone]- [phone] 11/03/2020 11:35 Patient: BRUNA LEE Sex: F [...] replace what is lost. 3 General Instructions [facility] Emergency Department [address] [place] [address] Phone #: ext- [phone] 11/03/2020 11:35 Patient: BRUNA LEE Sex: F : 1985 Age: 35yAntibiotics are not effective in this illness, but there are a number of things you can do at home thatwill help.Home careFollow these home care measures: If symptoms are severe, rest at home for the next 24 hours or until you are feeling better. Wash your hands with soap and water or alcohol-based bacon skin lifter to prevent the spread of infection. Wash [...] Keep uncooked meats away from cooked and jnyao-xs-vnb foods.Medicines: You may use acetaminophen or NSAIDS [...] cramping, and pain worse. 4 General Instructions [facility] Emergency Department [address] [place] [address] Phone #: ext- [phone] 11/03/2020 11:35 Patient: [...] to seek medical advice 5 General Instructions [facility] Emergency Department [address] [place] [address] Phone #: ext- [phone] 11/03/2020 11:35 Patient: BRUNA LEE Sex: F [...] or as directed by your healthcare provider [facility] 911Call 911 if any of the following occur: Trouble breathing Confused Severe drowsiness or trouble awakening Fainting or loss of consciousness Rapid heart rate Seizure Stiff neck [phone] [employer] [place] [address]. All rights reserved. This information is not intended as asubstitute for professional medical care. Always follow your healthcare professional's instructions.Unknown Causes of Abdominal Pain (Female) 6 General Instructions [facility] Emergency Department [address] [place] [address] Phone #: ext- [phone] 11/03/2020 11:35 Patient: [...] for taking these medicines. 7 General Instructions [facility] Emergency Department [address] [place] [address] Phone #: ext- [phone] 11/03/2020 11:35 Patient: BRUNA LEE Sex: F : 1985 [facility] 35[facility] Rest as much as you can [...] begin to improve in thenext 24 hours.Call [phone] [phone] if any of these occur: Trouble breathing Confusion Fainting or loss of consciousness Rapid heart rate 8 General Instructions [facility] Emergency Department [address] [place] [address] Phone #: ext- [phone] 11/03/2020 11:35 Patient: BRUNA LEE Sex: F [...] or water and you are getting dehydrated [phone] [employer]. [address] [place] [address]. All rights reserved. This information is not [...] feel: Helpless Nervous Depressed 9 General Instructions [facility] Emergency Department [address] [place] [address] Phone #: ext- [phone] 11/03/2020 11:35 --- [...] (Avoid hassles, limit the 10 General Instructions [facility] Emergency Department [address] [place] [address] Phone #: ext- [phone] 11/03/2020 11:35 Patient: [...] andtemporary medicine to help you manage stress.Call 911Call 911 if any of these happen: Trouble breathing Confusion Drowsiness or trouble wakening Fainting or loss of consciousness Rapid heart rate Seizure New chest pain that becomes more severe, lasts longer, or spreads into your shoulder, arm, neck, jaw, or backWhen to seek medical advice 11 General Instructions [facility] Emergency Department [address] [place] [address] Phone #: ext- [phone] 11/03/2020 11:35 Patient: BRUNA LEE Sex: F : 1985 Age: 35yCall your healthcare provider right away if any of these happen: Your symptoms get worse Severe headache not relieved by rest and mild pain reliever [employer]. [address] [place] [address]. All rights reserved. This information is not intended as asubstitute for professional medical care. Always follow your healthcare professional's instructions. You have been given the following additional information: Diarrhea, Viral (Adult) Abdominal Pain, Unknown Cause, (Female) Anxiety Reaction(Electronically signed by Evonne Hagen M.D. 11/03/2020 18:01) Name Value Range Interpretation Code Description Data [place]mira rce(s) Supporting Document(s) ID Date Data Source [id number] 11/03/2020 11:35:00 AM EDT [facility] 1 Clinical Report - Nurses [facility] Emergency Department [address] [place] [address] Phone #: ext- [phone] 11/03/2020 11:35 Patient: BRUNA LEE Sex: F : 1985 Age: 35yTRIAGEArrived by EMS. Historian: patient.Acuity: LEVEL 3.Chief Complaint: ABDOMINAL PAIN and DIARRHEA.Onset. (6 months ago). 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 See [...] Quiroz RN. 2 Clinical Report - Nurses [facility] Emergency Department [address] [place] [address] Phone #: ext- [phone] 11/03/2020 11:35 Patient: [...] treatment room. --13:59 11/03/20 Genaro Quiroz RN.PHYSICAL [id number] 11/03/20. To room via wheelchair.GENERAL / NEURO / PSYCH: Alert. Oriented X 4. Appears in pain.HEENT: Mucous membranes are pink.RESPIRATORY: Respirations not labored. Breath sounds within normal limits.CVS: Capillary refill less than 2 seconds.GI / : The patient has diarrhea. It has been watery. Abdomen soft. Abdominal tenderness in thesuprapubic area. Bowel sounds within normal limits.SKIN: Skin is warm and dry. --14:11/03/20 Sayda Davis RN. 3 Clinical Report - Nurses [facility] Emergency Department [address] [place] [address] Phone #: ext- [phone] 11/03/2020 11:35 Patient: BRUNA LEE Sex: F [...] left forearm and wrist. Applied bandage. --15:27 9/8/21 Sayda Davis RN 15:16 11/03/2020 Ativan (LORazepam) [...] F. Pain level now 08/05. 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 Condition at departure: stable. No learning barriers present. Discharge instructions provided and reviewed with the patient. Patient verbalized understanding. Written instructions provided in Ecuadorean. The patient was discharged home. She left ambulatory and via private vehicle. Patient driving. --15:11/03/20 Sayda Davis RN.Locked/Released at 11/03/2020 15:29 by Sayda Davis RN Name Value Range Interpretation Code Description Data [place] rce(s) Supporting Document(s) ID Date Data Source [id number] 11/03/2020 11:35:00 AM EDT [facility] 1 Clinical Report - Physicians/Mid Levels [facility] Emergency Department [address] [place] [address] Phone #: ext- [phone] 11/03/2020 11:35 [id number] Sex: F : 1985 Age: 35y Time [...] Disease. 2 Clinical Report - Physicians/Mid Levels [facility] Emergency Department [address] [place] [address] Phone #: ext- [phone] 11/03/2020 11:35 Patient: [...] results 3 Clinical Report - Physicians/Mid Levels [facility] Emergency Department [address] [place] [address] Phone #: ext- [phone] 11/03/2020 11:35 Patient: BRUNA LEE Sex: F [...] Male GFR Interprentation 20-49 yrs >60 mL/min Nfarob54-30 yrs >56 mL/min Normal 60-69 yrs >49 mL/min Normal 70-79yrs>42 mL/min Normal 80 and above >35 mL/min Normal Female GFRInterpretation 20-39 yrs >60 mL/min Normal 40-49 yrs >58 mL/min 4 Clinical Report - Physicians/Mid Levels [facility] Emergency Department [address] [place] [address] Phone #: ext- [phone] 11/03/2020 11:35 Patient: BRUNA LEE Sex: F : 1985 Age: 35y Normal 50-59 yrs >51 mL/min Normal 60-69 yrs >45 mL/min Normal 70-79 yrs > 39 mL/min Normal 80 and above >32 mL/min Normal Lipase: (JENN: 11/03/2020 14:18) ( MsgRcvd 11/03/2020 14:56) Final results Test Result Flag Units (Reference) LIPASE 10 L U/L (13 - 60) UA REFLEX TO UA CULTURE: (JENN: 11/03/2020 14:30) ( [facility] 11/03/2020 14:37) Final results Test Result Flag [...] Indicate Lactic Acid: (JENN: 11/03/2020 14:18) ( [facility] 11/03/2020 14:30) Final results Test Result Flag Units (Reference) LACTIC ACID 1.0 MMOL/L (0.2 - 2.2) Beta-HCG, Qual Seru m: (JENN: 11/03/2020 14:18) ( [facility] 11/03/2020 14:45) Final results Test Result Flag Units (Reference) HCG SERUM QUAL NEGATIVE (NORMAL: NEGAT HCG SERUM QL REENTER NEGATIVE (NORMAL: NEGAT { KIT LOT # [id number] ){ KIT EXP DATE 02.25.22 ){ PROCEDURAL [...] accurately reflects the information as submitted by [facility]. This report was requested by: Evonne Hagen Reference #: [id number] 5 Clinical Report - Physicians/Mid Levels [facility] Emergency Department [address] [place] [address] Phone #: ext- [phone] 11/03/2020 11:35 Patient: BRUNA LEE Sex: F : 1985 Age: 35yOthers' PrescriptionsPatient Name: Bruna LeeBirth Date: 1985Address: [address] [place] [id number]: FemaleRx Written Rx Dispensed Drug Quantity Days Supply Prescriber Name Prescriber Shiloh # Payment [id number]/10/2021 05/05/2020 buprenorphine-naloxone 8-2 mg sl film 56 28 Jose J Mao MD, [id number] [facility] #8004/07/2020 04/07/2020 buprenorphine-naloxone 8-2 mg sl film 56 28 Jose J Mao MD, [id number] [facility] #15003/03/2020 03/03/2020 buprenorphine-naloxone 8-2 mg sl film 56 28 Jose J Mao MD [id number] [facility] #15104/05/2019 02/03/2020 buprenorphine-naloxone 8-2 mg sl film 56 28 Jose J Mao MD04Medicaid [facility] #15103/02/2019 01/02/2020 buprenorphine-naloxone 8-2 mg sl film 56 28 Jose J Mao MD04Medicaid [facility] #15Patient Name: Bruna LeeBirth Date: 1985Address: [address] [place], [place] [address]Ebd: FemaleRx Written Rx Dispensed Drug Quantity Days Supply Prescriber Name Prescriber Shiloh # Payment [id number]/07/2020 12/03/2019 buprenorphine-naloxone 8-2 mg sl film 56 28 Jose J Mao MD [id number] [facility] #80911/21/2019 vyvanse 50 mg capsule 15 15 Karolyn Van ([facility]) [id number] [facility]150911/06/2019 clonazepam 0.5 mg tablet 7 7 Karolyn Van ([facility]) [id number] [facility]15Patient Name: Bruna LeeBirth Date: 1985Address: [address] [place], [place] [address]Ovm: FemaleRx Written Rx Dispensed Drug Quantity Days Supply Prescriber Name Prescriber Shiloh # Payment SelrhxZqcmoztqs67/07/2021 09/01/2020 buprenorphine- naloxone 8-2 mg sl film 28 14 Jose J Mao MD [id number] [facility] #15008/18/2020 08/18/2020 buprenorphine-naloxone 8-2 mg sl film 28 14 Jose J Mao MD [id number] [facility] #15007/14/2020 07/21/2020 buprenorphine-naloxone 8-2 mg sl film 56 28 Jose J Mao MD [id number] icaid [facility] #15006/24/2020 06/24/2020 buprenorphine-naloxone 8-2 mg sl film 56 28 Jose J Mao MD [id number] [facility] #15* - Drugs marked with an asterisk are compound drugs. If the compound drug is made up of more than onecontrolled substance, then each controlled substance will be a separate row in the table. 6 Clinical Report - Physicians/Mid Levels [facility] Emergency Department [address] [place] [address] Phone #: ext- [phone] 11/03/2020 11:35 Patient: BRUNA LEE Sex: F : 1985 Age: 35y 15:08 11/03/20. 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 Patient counseled in person regarding [...] if 7 Clinical Report - Physicians/Mid Levels [facility] Emergency Department [address] [place] [address] Phone #: ext- [phone] 09/08/2021 11:35 [id number] Sex: F : 1985 Age: 35y not [...] rce(s) Supporting Document(s) ID Date Data Source [id number] 11/03/2020 02:36:00 PM EDT [facility] Name Value Range Interpretation Code Description Data [place] rce(s) Supporting Document(s) UA REFLEX TO UA CULTURE [facility] URINALYSIS SOURCE R [facility] COLOR yellow NORMAL: Yellow [facility] CLARITY clear NORMAL: Clear [facility] Specific gravity of Urine by Test strip 1.010 1.001 - 1.030 [facility] pH 7 5 - 9 [facility] Glucose [Mass/volume] in Urine by Test strip NORM NORMAL: Negat [facility] Bilirubin.total [Presence] in Urine by Test strip NEG NORMAL: Negative [facility] Ketones [Presence] in Urine by Test strip NEG NORMAL: Negative [facility] Protein [Mass/volume] in Urine by Test strip NEG NORMAL: Negat [facility] Nitrite [Presence] in Urine by Test strip NEG NORMAL: Negative [facility] BLOOD NEG NORMAL: Negative [facility] Leukocyte esterase [Presence] in Urine by Test strip NEG ZAYNAB L: Negative [facility] Urobilinogen [Mass/volume] in Urine by Test strip NOR less kenna n 1.0 mg/dL [facility] MICROSCOPIC Not Indicate [facility] ID Date Data Source [id number] 11/03/2020 02:56:00 PM EDT [facility] Name Value Range Interpretation Code Description Data [place] rce(s) Supporting Document(s) Lipase [Enzymatic activity/volume] in Serum or Plasma 10 U/L 13 - 60 L [facility] ID Date Data Source [id number] 11/03/2020 02:56:00 PM EDT [facility] Name Value Range Interpretation Code Description Data [place] rce(s) Supporting Document(s) COMPREHENSIVE METABOLIC PANEL [facility] COMPREHENSIVE METABOLIC PANEL Sodium [Moles/volume] in Serum or Plasma 136 mEq/L 134 - 153 [facility] Potassium [Moles/volume] in Serum or Plasma 4.2 mEq/L 3.6 - 5.0 [facility] Chloride [Moles/volume] in Serum or Plasma 100 mEq/L 98 - 107 [facility] Carbon dioxide, total [Moles/volume] in Serum or Plasma 25 MEQ/L 22 - 30 [facility] Glucose [Mass/volume] in Serum or Plasma 140 MG/DL 70 - 99 H [facility] BUN 12 MG/DL 7 - 21 [facility] Creatinine [Mass/volume] in Serum or Plasma 0.5 MG/DL 0.7 - 1.5 L [facility] BUN/CREAT 24 8 - 27 [facility] Protein [Mass/volume] in Serum or Plasma 7.1 G/DL 6.3 - 8.2 [facility] Albumin [Mass/volume] in Serum or Plasma 4.6 G/DL 3.9 - 5.0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 PIOMHdNtZ80mEIazVf67XEmwDJPdSrNwNBu7Iq8UFnUaW9bpCQYhSuQ7TUYlOtB7SKUfAeB5TXQjGuPp VDHvLNQtLBMiEQXEVPY1VVSfPrUpSoTeLCRsNWafXZYYZU6YXlQvU3RocB54POkFPm3+DQplbmRvYmoN GyL6DYIsy7MbNBj9FF6TVEKkOzzwq1GiMCCcJFJSHA dzFQ9NXWH0ZRH4MGXoRv9MJGBnD037xqNnKZ2DNd1ASsStDG9zrd9TXZBlZBWhNatADij1XVqtGZ0RsU VyGCcAUzPmGrmmTB7kzXLTRMXaZWSgMU0XHWC3OJvyQXgwQyIdSAEhDUttRMDIVXcIWgDuN5Jxq0XmSf F2FLEnLyGvUGcjWZFvNoN4VI46rIwsGG2IWSFnSAEz HC83UXI9WRDlAf2MPy2FYaJtJI7bpw1UFVpjBKKsNugGHuo5DOutTC3HtOJbX4OfzRMth2fXVyQuW9JB RHWuMYGlEq2WCMPrFdYfQMGyTAygAN6fWPAoTXMNbJlmwhD6VN4AIF1zdyXoKA5KNuRxZf4vId2TCkTv G7DfW0AvRDZiETLEJXhaPE2TRTjkUT2iCL1Av3QLoU IqgB8pxz4YUDKaZMOoWttfum6VSenmY9T6xKsaBIAtUFBeNAXBYFhfYQ8VZFRbWHZ1LRZ1BAMuDMWUSh TbQ55zTH3GU2Zpf04zSvD0FHKiYvMfVYfhBJ46wVgpobQvbQXeuKjaGJ2XCp6+DQplbmRvYmoNCnhyZW PVKrDaBHzLIuTjCORbQEOkWBMeIeN7EtSzHi2SOKLm SAYdIHZqQyIiGOLzFNWzEYgyTFDxCOO1PVqkUSYbGLTaWE2JJjDzJOTsODWnHgGuCKWdWNZzfz4ELLVk VPVqFEM0LgGvQSAeFVXrQSwdCMHiLHZnGCr3XGGfOCWnKP4ISrTaLLKrKWL1LQTwQUWlWBQvmh8LPQUp OQRgYbq3RxJqTKDnLBElXEkrVHLeNAA3BGL7CQHsZR UdKP3ZHhXaDPBkFJi8BlqgMZMhWEElyp9LSMUzBKJaITQ0NmVwUPXdITYpUWdiMNNpWQPvSOX8HDPnFY YlJZ1ONcRhHWSpRNW5SwRmAJZfQVEokw5AIBLxPXKsXjZqRXTqPNJvYZKpEEcwTRHtIWA9VQY2TVZvKD WfNV0JHzIrUFKvSnT0KIDjTNSfDREwni7LPPFqPFSt VAIgZkMkXMGxWPMbGUwxTUCiPPT5EjW2EWVlFOYqXY7GVgNpJCFdMjG6RqKwKBAxHZYbjy3GSVJlMHBg FIMpSaJpDAHtLWGdDEpuUGUlXNC6QuKyQDCnVKIqZL6NKvRyLIKaTiSkEOCeZIBlCQKnhx8UJMCdLBSq BvD9LXKcLNCcLHSgTIdgUBRqLPC6DouwGPHmFTYqZC 9PBiXvBJAlRsb5FyFmZKBqBPZbaz4NVWCkUXUkAemdHNUvIVQbYISaHXboGRVyKJO5ESEgPCEyOJZyCJ 9QSwAmDLHlNmi0WPDoUJNwSAIzdb9DOWZlANPfUBJ1SVFyIBZfDAQkEDepASRvDWY9PjGgXUPvUKDsWT 9BXpFbMSYzBiGlSjBgSFEoATStqr7DUEXtGLCnQVPd LeZxDWWyXUStUVtfRAIzQPAgDfP9AWYoANArOO6XTyRwLSBxPcL3ZoMbEDSmNPDkxc5JVWCkMGVtFCv6 ATGdCTCzBRCxZAaaJIQdJORfKWl7MDBcJVAvCY2YYkZxUNVrMyJ7ImLrPOWyCHLzpx5VSXRsNDGhWuX7 FkRtSFYvTHRzJMjoLOVlRAT2JNe2LZCwJZHlMQ9ZCv YsUTAnOvn0ZFqaIPXxSZRtvd9IPWEjINTrIcz4UJQnVKEpPSUeKUvzDSGjWKR4AAluXEPrJXWjUP8HMc QwTHDsGstxJyOpHFNdYSAasa3YONPtRSScFSD6NMIrXMEsYEImWLlyWRDcGCF5HPO1MTFoLHPdBS7YFh CbZUXvNSJ4ZxUlRWRuEKUyey5MJTSvSMW8RYC7OHEe ZTYaHMTpPUogHZOzUFKhGhS8CUGfEMWeLU1TRiGsVKfxXATHPpv5TWoeL7n8PFF1EJ7UX6Rrd5PdJLvc IQUJVEmiGA8ioaMzGEVjDn4NJ9cSKtphQ2Z5SCJjLLOpHlQlPHH6GCRyTGWyPEXsKGFiWSShJO0rUYA2 HMVoNFGgFaK2CqYgCEflVVX2OfE4AnYqMJIsUWX8Uj WxBX2RWl3FMvB6XHP7jAOaFc3WXXV2AtNWJdLmHS0PORg= ID Date Data Source [id number] 09/12/2020 03:48:52 PM EDT [facility] Name Value Range Interpretation Code Description Data [place] rce(s) Supporting Document(s) History and Physical [facility] SCQHOw2kXiEAHsOa50/CCNixBGNbd5RoWMzpXLb7UWmzOJBtH0ZyDIE6gR3cTUS6XWwUChCnJeFaQbN8 lbm [file] ICAgICAgICAgICAgICAgICAgICAgICAgICAgICAgICAgICAgICAgICAgICAgICAgICAgICAgICAgICAg ICAgDQogICAgICAgICAgICAgICAgICAgICAgICAgIC AgICAgICAgICAgICAgICAgICAgICAgICAgICAgICAgICAgICAgICAgICAgICAgICAgICAgICAgICAgIC AgICAgICAgICAgICAgDQogICAgICAgICAgICAgICAgICAgICAgICAgICAgICAgICAgICAgICAgICAgIC AgICAgICAgICAgICAgICAgICAgICAgICAgICAgICAg ICAgICAgICAgICAgICAgICAgICAgICAgDQogICAgICAgICAgICAgICAgICAgICAgICAgICAgICAgICAg ICAgICAgICAgICAgICAgICAgICAgICAgICAgICAgICAgICAgICAgICAgICAgICAgICAgICAgICAgICAg ICAgICAgDQogICAgICAgICAgICAgICAgICAgICAgIC AgICAgICAgICAgICAgICAgICAgICAgICAgICAgICAgICAgICAgICAgICAgICAgICAgICAgICAgICAgIC AgICAgICAgICAgICAgICAgDQogICAgICAgICAgICAgICAgICAgICAgICAgICAgICAgICAgICAgICAgIC AgICAgICAgICAgICAgICAgICAgICAgICAgICAgICAg ICAgICAgICAgICAgICAgICAgICAgICAgICAgDQogICAgICAgICAgICAgICAgICAgICAgICAgICAgICAg ICAgICAgICAgICAgICAgICAgICAgICAgICAgICAgICAgICAgICAgICAgICAgICAgICAgICAgICAgICAg ICAgICAgICAgDQogICAgICAgICAgICAgICAgICAgIC AgICAgICAgICAgICAgICAgICAgICAgICAgICAgICAgICAgICAgICAgICAgICAgICAgICAgICAgICAgIC AgICAgICAgICAgICAgICAgICAgDQogICAgICAgICAgICAgICAgICAgICAgICAgICAgICAgICAgICAgIC AgICAgICAgICAgICAgICAgICAgICAgICAgICAgICAg ICAgICAgICAgICAgICAgICAgICAgICAgICAgICAgDQogICAgICAgICAgICAgICAgICAgICAgICAgICAg ICAgICAgICAgICAgICAgICAgICAgICAgICAgICAgICAgICAgICAgICAgICAgICAgICAgICAgICAgICAg CROrLILwGXJgNKZxJVo9L4qtRAPxGRKzFZ4bSDu5Uf 8+PFrEWxLjXTV0nsNjfL0HDV6uc0TfQJvzVGAwm5VbCSp9ML4ZNWBlPLagKT7XLLzvcc8DQVAlEMLdpC PAz8ojYdKoXHR3BPMoCibiPZ5UADOjV8xfkmQuRKQuAMXPIWjzACOHVNtmLGBVYPRdYUZzTcHjMuGqME WzVJ9ZWXCrL358xaOtSU5RDf4ZLsWdBL2zvd8FHgTk OKAnMpbURse9IIurSI1MbNKziZOyPbPdRLDVBqUtQ8myh1GxLwueIHEUVSlvIO7Kg6YgdCPoPGy+Pg0K HB8yf0GcQUizFiFhAJ9alp4HWXpRSzUbF0IbzMaiUHieDBSeeQKRHUQySLIhHXgaYrG5WHZWILYnfIM3 ZoK6OtKsThCiXTm0NLEaGX5xJQsgXH4NSXI1MWrhZP CcFVKsJ1nRTmWpNADvWfWrhTbnZV1AFtJaD6YkvyOauUCzHbRhJMJQFt5+RMhwriSqBxwIThP4USScm7 EnQAd0VU9REMRuRYowBE9FATJltP8sMHrmUH1JFsQoACLqPCHIHrHqQ91kaDDgLTt8E2JmIuAeLZEcQi lsZXMgPDwvTmFtZXMgWyBdDQogID4+ID4+KJmuPO7B HMxokrVfQYJrIj6GOODmVGIhSC0zUFVcXQEtW3Z8wKqwWLFIPmIwJ8blvlmrRA1aRIQdT760tQvwxbTf MHP2VCJyMy7IQWLnWTD8WPRpoIZtRsFlKRIDKQsqQB4BdUZnIDY8fK1rSTalWULoLILjO4hMIeLbfShx HT55aRmqgpIxkIZsFUa+Lb6RNQ1qd1AcJJt4udFhVB njHOC4MQxxEKPeXBStIIItEEC3KVQ6REGVYyCnBPTdNIFmCBvgQMZzVWAvhf4WZWKuJTEqPbt8ZMQsWS JnWHWjERcqXHHuNOV4UnW3HHKeLOXzIU6YTrAcRAMoVDNdQDnvZZJiFFAcol3SDDKvHFWxXyC8LVHpLV YiIBHnSKghQNHmHLUiYzHrLRIzURYzLW2GOdWrSEKv RGSyJTOqDDCuBQLnjg0DTTJxVXGrUdS8IWMfAMXuMEHjDVafCPHnPLW4SjQjFCEbFOAyPS8QYcTxJCDa ATf8LNZsYCGlPAWwgx1AIEBrLSCaRmQvHkOsHFMhRKKgNMcnWXXeXBHoWaRrNVGfCDBsHQ7YWcKjRZTv ZGZ2HfwkOIYbQXQngw6SPGGiHEGaNac6YYAuCLIqML IqGFqoQCCgPPC6USJ6NYQgHTJkHQ0POzFyMEEzFNTcAsSjWGFlGSYjmn6GOHVtYVHlHNUkHLJvNBWkAD YkPPhpOJIjERO5NlllAJLtMYYmBA0TXxWvIDUlFRN2PoGeDQOkXLBgwd0ZUWYcIGBtRcL2PbBiIEMsKM YpAPllCDRfLYN6TwQbQKIdOWUrSE4SSzJyCXBaQQd9 QbBeHQDaNEEbtc1URNQtKEDeYKXnKzOxIFRcZNXpVVcbBCYsEJB1Evl9FUQqBAAtMH7MPoZvONFhIxh2 WHHoKXShTVRlvv1QRDAlXBMzBIxtVHHbCYCfVMCtDOraRKSpLVZyTHM0PBHxDFYzDX2YPaGyJDZbAgVt PIDiDCZjATOoum0VVYZiIFYoDJO3RYDoGZXaRLGhUT hjUMMeLEUvPHMiZTZwOUEmCJ8AChBuIYZoAxR2YTUkHUFwMVSipl9SZJUmNASkEpK8YjFlWPYbHEAbCE roDMAnORLlYxZ6EFChIISrHY8OXfPdTKLcSgI4XnooBBKtVRJzez8KIZLdZBNzAnM6NVDlDOLzOHEyLY bcXKCvEMV5KJRnBHQyDAIwGG7DTqJrXKElUeC6MXVc VUMpWMGdfl5IXFOfIJSmDSN2UDMmRAYmNRTtDEh6suNtwSIzUFe6CR8HN1KmqmVeUvzOZy2Br537FTM0 EHSdZs2BR6ifIz4uCAEkWSSVVa2KXTj2XZAbVdHzVUB5FHGzLFobNTByPWe9YwwlRLfdATasRYT+IDwx SuNlCvBnHgB2NCYsAPPoDnNxZOf6HzTjQxE3FWW9RZ 4zJMXOVt7+BHswdZXrfKfrAOKMZwI1Dtv4FIaiBZPYHs6W ID Date Data Source [id number] 09/13/2020 01:25:53 PM EDT [facility] Service Cmnt XXX-Imp : NoneMicroorganism XXX Cult : Jacqu[employer] Mediated Amplification(TMA) is NEGATIVE for Neisseria gonorrhoeae AND NEGATIVE for Chlamydia trachomatis. Name Value Range Interpretation Code Description Data [place] rce(s) Supporting Document(s) ID Date Data Source [id number] 09/13/2020 10:45:47 AM EDT [facility] Service Cmnt XXX-Imp : NoneMicroorganism XXX Cult : No growth 1 day Name Value Range Interpretation Code Description Data [place] rce(s) Supporting Document(s) ID Date Data Source [id number] 09/12/2020 12:23:59 PM EDT [facility] Name Value Range Interpretation Code Description Data [place] rce(s) Supporting Document(s) Color of Urine [facility] Clarity of Urine [facility] Specific gravity of Urine by Refractometry automated 1.012 1.003 -1.030 [facility] pH of Urine by Automated test strip 7.0 5.0-8.0 [facility] Protein [Mass/volume] in Urine by Automated test strip Neg [facility] Glucose [Mass/volume] in Urine by Automated test strip Neg [facility] Ketones [Mass/volume] in Urine by Automated test strip Neg [facility] Bilirubin.total [Presence] in Urine by Automated test strip Negative [facility] Hemoglobin [Presence] in Urine by Automated test strip Neg ative A [facility] Leukocyte esterase [Presence] in Urine by Automated test strip Negative [facility] Nitrite [Presence] in Urine by Automated test strip Negati ve [facility] Leukocytes [#/area] in Urine sediment by Automated count 0 -5 [facility] Erythrocytes [#/area] in Urine sediment by Automated count 7 /HPF 0-3 H [facility] ID Date Data Source [id number] 09/09/2020 04:46:00 PM EDT [facility] 1 OrderSheet [facility] Emergency Department [address] [place] [address] Phone #: ext- [phone] 09/09/2020 16:40 Patient: BRUNA LEE Sex: F : 1985 Age: 35yWEIGHT:68.9 kg (M) HEIGHT:60 inches (S) BMI:29.7ALLERGIES: Amoxicillin, Bactrim, Certain antipsycotics, Penicillins, SulfurCHIEF COMPLAINT: agitated, delusional, paranoid, manic, hallucinations, anxiousDIAGNOSIS: SchizophreniaLAB ORDERSOrder Description Priority Entered Acknowledged InitialedCBC w Diff STAT 17:09/09/2020 17:37 Tenisha Farrar Norma MD; Bruna Abel.Farhad.CMP STAT 17:09/09/2020 17:37 Tenisha Farrar Norma MD; Bruna R .NJayroUrinalysis (Clean STAT 17:09/09/2020 Ack'd: 17:37 17:56 Edmund Farrar) Zaynab Steven MD; Bruna Farrar R.N. R.N.Urine Drug Screen STAT 17:09/09/2020 Ack'd: 17:37 17:56 Tenisha Farrar Norma MD; Bruna Farrar R.N. R.N.ETOH STAT 17:09/09/2020 17:37 Tenisha Farrar Norma MD; Bruna R.N.Magnesium STAT 17:09/09/2020 17:37 Tenisha Farrar Norma MD; Bruna R.N.Acetaminophen STAT 17:09/09/2020 17:37 Rahul Farrar Norma MD; Bruna Abel.Farhad.Salicylate Level STAT 17:09/09/2020 17:37 Tenisha Farrar Norma MD; Bruna MaryDIAGNOSTIC STUDY ORDERSOrder Description Priority Entered Acknowledged InitialedMEDICATION/IV/DRIP/FLUID ORDERSOrder Description Priority Entered Acknowledged InitialedGENERAL ORDERSOrder Description Priority Entered Acknowledged InitialedEKG 17:09/09/2020 Ack'd: 17:37 17:56 Tenisha Farrar Norma MD; Bruna Farrar R.N. 2 OrderSheet [facility] Emergency Department [address] [place] [address] Phone #: ext- [phone] 09/09/2020 16:40 Patient: BRUNA LEE Sex: F : 1985 Age: 35y R.N.[Electronically signed by Bruna Farrar R.N. (22:38 09/09/2020)][Electronically signed by Zaynab Steven MD (07:17 09/11/2020)][Electronically locked by Bruna Farrar R.N. (:38 09/09/2020)] Name Value Range Interpretation Code Description Data [facility] rce(s) Supporting Document(s) ID Date Data Source [id number] 09/09/2020 04:46:00 PM EDT [facility] 1 Medication Reconciliation Report [facility] Emergency Department [address] [place] [address] Phone #: ext- [phone] 09/09/2020 16:40 Patient: [...] Home Medication information:patient 2 Medication Reconciliation Report [facility] Emergency Department [address] [place] [address] Phone #: ext- [phone] 09/09/2020 16:40 Patient: BRUNA LEE Sex: F : 1985 Age: 35yThe following Medications were given to the patient in the Emergency Department:None.The following Medications were prescribed to the patient:None. Name Value Range Interpretation Code Description Data [facility](s) Supporting Document(s) ID Date Data Source [id number] 09/09/2020 04:46:00 PM EDT [place] [address] Medication Administration Record [facility] Emergency Department [address] [place] [address] Phone #: ext- [phone] 09/09/2020 16:40 Patient: BRUNA LEE Sex: F : 1985 Age: 35yWeight: 68.9 kgHeight/Length: 60 inBMI: 29.7ALLERGIES: Sulfur, Amoxicillin, Penicillins, Bactrim, Certain antipsycoticsDate/Time Medication Administered Medication Ordered Name Value Range Interpretation Code Description Data [facility] rce(s) Supporting Document(s) ID Date Data Source [id number] 09/09/2020 04:46:00 PM EDT [facility] 1 General Instructions [facility] Emergency Department [address] [place] [address] Phone #: ext- [phone] 09/09/2020 16:40 Patient: BRUNA LEE Sex: F [...] Severe anxiety Feeling unreal 2 General Instructions [facility] Emergency Department [address] [place] [address] Phone #: ext- [phone] 09/09/2020 16:40 Patient: [...] providers about all of the prescription medicines, xwee-bie-sioorxp medicines, and supplements you take. Certain supplements [...] operates a toll-free ADA information line at: [phone] (voice) or [phone] (TTY). They can help you locate a local office.Follow-up careFollow up with your doctor or therapist , or as advised.Jae [place] [phone] if you: 3 General Instructions [facility] Emergency Department [address] [place] [address] Phone #: ext- [phone] 09/09/2020 16:40 Patient: [...] yourself or others Worsening depression or anxiety [phone] [employer] [place] [address]. All rights reserved. This information is not intended as asubstitute for professional medical care. Always follow your healthcare professional's instructions. You have been given the following additional information: Schizophrenia, General(Electronically signed by Zaynab Steven MD 09/11/2020 07:17) 4 General Instructions [facility] Emergency Department [address] [place] [address] Phone #: ext- [phone] 09/09/2020 16:40 Patient: BRUNA LEE Sex: F : 1985 Age: 35y Name Value Range Interpretation Code Description Data [facility] rce(s) Supporting Document(s) ID Date Data Source [id number] 09/09/2020 04:46:00 PM EDT [facility] 1 Clinical Report - Nurses [facility] Emergency Department [address] [place] [address] Phone #: ext- [phone] 09/09/2020 16:40 Patient: [...] 97%. Temp: 98 F (oral). Pain levelnow: 10/10. --16:51 09/09/20 Amado Chow.Weight: 68.9 kg measured. Height/Length: 60 inches Per Patient. BMI: 29.7. --16:41 09/09/20 Amado Chow.MedicationsAmitriptyline HCl Oral (Tablet 50 mg). cloNIDine HCl Oral (Tablet 0.2 mg), daily as needed. Gabapentin Oral (Tablet 600 mg). Keppra Oral (Tablet 1000 mg). Latuda Oral (Tablet 60 mg). Nurontin. PriLOSEC Oral. --22:37 09/09/20 Bruna Farrar R.N. Provasaamanda. RisperDAL Oral. Strattera Oral. Suboxone Sublingual 04/05 , daily. SUMAtriptan Succinate Oral. Unknown stomach pill. --22:37 09/09/20 Bruna Farrar R.N.AllergiesPenicillins. --16:43 09/09/20 [place] ChowinAmoxicillin. --16:43 09/09/20 [place] ChowinSulfur. --16:44 09/09/20 Amado Chow 2 Clinical Report - Nurses [facility] Emergency Department [address] [place] [address] Phone #: ext- [phone] 09/09/2020 16:40 Patient: [...] factors identified. 3 Clinical Report - Nurses [facility] Emergency Department [address] [place] [address] Phone #: ext- [phone] 09/09/2020 16:40 Patient: [...] yell profanity 4 Clinical Report - Nurses [facility] Emergency Department [address] [place] [address] Phone #: ext- [phone] 09/09/2020 16:40 Patient: BRUNA LEE Sex: F : 1985 Age: 35y at the staff and remaining agitated.). --22:33 09/09/20 Farrar, Bruna, R.N.DISPOSITION / DISCHARGE late entry - 21:35 [...] left the Emergency Department ambulatory. ( Via [place] [employer]). --22:35 09/09/20 Bruna Farrar R.N. 21:35 [...] rce(s) Supporting Document(s) ID Date Data Source [id number] 09/09/2020 04:46:00 PM EDT [facility] 1 Clinical Report - Physicians/Mid Levels [facility] Emergency Department [address] [place] [address] Phone #: ext- [phone] 09/09/2020 16:40 Patient: BRUNA LEE Sex: F [...] Pain. 2 Clinical Report - Physicians/Mid Levels [facility] Emergency Department [address] [place] [address] Phone #: ext- [phone] 09/09/2020 16:40 Patient: BRUNA LEE Sex: F [...] (Reference) 3 Clinical Report - Physicians/Mid Levels [facility] Emergency Department [address] [place] [address] Phone #: ext- [phone] 09/09/2020 16:40 Patient: BRUNA LEE [facility]#: [id number] Sex: F : 1985 Age: 35y CBC [...] Male GFR Interprentation 20-49 yrs >60 mL/min Poeqtw56-22 yrs >56 mL/min Normal 60-69 yrs >49 mL/min Normal 70-79yrs>42 mL/min Normal 80 and above >35 mL/min Normal Female GFRInterpretation 20-39 yrs >60 mL/min Normal 40-49 yrs >58 mL/minNormal 50-59 yrs >51 mL/min Normal 60-69 yrs >45 mL/min Normal 4 Clinical Report - Physicians/Mid Levels [facility] Emergency Department [address] [place] [address] Phone #: ext- [phone] 09/09/2020 16:40 [id number] Sex: F : 1985 Age: 80s39-20 yrs >39 mL/min Normal 80 and above >32 mL/min NormalUrinalysis: (JENN: 09/09/2020 17:40) ( [facility] 09/09/2020 18:04) Final results Test Result Flag [...] Not IndicateDrug Screen-Urine: (JENN: 09/09/2020 17:40) ( [facility] 09/09/2020 18:19) Final results Test Result Flag [...] PRESUMPTIVE POSITIVE CONFIRMATION WILL BE PERFORMED AT [facility].ETOH: (JENN: 09/09/2020 17:40) ( [facility] 09/09/2020 18:29) Final results Test Result Flag Units (Reference) ALCOHOL <10.0 MG/DL ALCOHOL % 0.01 % (0.00 - 0.01) *FOR MEDICAL PURPOSES ONLY*Magnesium: (JENN: 09/09/2020 17:40) ( [facility] 09/09/[place] 18:54) Final results Test Result Flag Units (Reference) MAGNESIUM 2.2 MG/DL (1.7 - 2.2)Acetaminophen Level: (JENN: 09/09/2020 17:40) ( [facility] 09/09/2020 18:29) Final results Test Result Flag Units (Reference) 5 Clinical Report - Physicians/Mid Levels [facility] Emergency Department [address] [place] [address] Phone #: ext- [phone] 09/09/2020 16:40 Patient: BRUNA LEE Sex: F : 1985 Age: 35y ACETAMINOPHEN <5.0 UG/ML (0.0 - 30.0) Salicylate Level: (JENN: 09/09/2020 17:40) ( [facility] 09/09/2020 18:36) Final results Test Result Flag [...] 09/11/2020 07:17) 6Clinical Report - Physicians/Mid Levels [facility] Emergency Department [address] [place] [address] Phone #: ext- [phone] 09/09/2020 16:40 Patient: BRUNA LEE Sex: F : 1985 Age: 35y Name Value Range Interpretation Code Description Data [facility] rce(s) Supporting Document(s) ID Date Data Source [id number] 09/11/2020 01:50:00 [place] [address] RESPIRATORY CARE REPORT ==== ---------NAME------- NUMBER SEX AGE ADMIT DISC. XRAY# F/C TYPECOME BRUNA [id number] F 35 09/09/20 09/09/20 [id number] E/R DATE OF : 1985 M/R# [id number] #: [phone] VT-05 LOCATION: EMERGENCY DEPT [facility] [id number] COMPLE TE:09/10/20 01:43 T [id number] PHYSICIAN: AUTUMN ZENG Name Value Range Interpretation Code Description Data [place] rce(s) Supporting Document(s) ID Date Data Source [id number] 09/10/2020 06:29:00 PM EDT [facility] Name Value Range Interpretation Code Description Data [place] rce(s) Supporting Document(s) SARS coronavirus 2 RNA [Presence] in Res piratory specimen by MARK with probe detection NEGATIVE [facility] This lab was ordered by [facility] a nd reported by [facility]. ID Date Data Source [id number] 09/09/2020 06:53:00 PM EDT [facility] Name Value Range Interpretation Code Description Data [place] rce(s) Supporting Document(s) Magnesium [Mass/volume] in Serum or Plasma 2.2 MG/DL 1.7 - 2.2 [facility] ID Date Data Source [id number] 09/09/2020 06:52:00 PM EDT [facility] Name Value Range Interpretation Code Description Data [place] rce(s) Supporting Document(s) COMPREHENSIVE METABOLIC PANEL [facility] COMPREHENSIVE METABOLIC PANEL Sodium [Moles/volume] in Serum or Plasma 137 mEq/L 134 - 153 [facility] Potassium [Moles/volume] in Serum or Plasma 4.0 mEq/L 3.6 - 5.0 [facility] Chloride [Moles/volume] in Serum or Plasma 99 mEq/L 98 - 107 [facility] Carbon dioxide, total [Moles/volume] in Serum or Plasma 27 MEQ/L 22 - 30 [facility] Glucose [Mass/volume] in Serum or Plasma 103 MG/DL 70 - 99 H [facility] BUN 11 MG/DL 7 - 21 [facility] Creatinine [Mass/volume] in Serum or Plasma 0.7 MG/DL 0.7 - 1.5 [facility] BUN/CREAT 16 8 - 27 [facility] Protein [Mass/volume] in Serum or Plasma 7.1 G/DL 6.3 - 8.2 [facility] Albumin [Mass/volume] in Serum or Plasma 4.6 G/DL 3.9 - 5.0 [facility] Globulin [Mass/volume] in Serum by calculation 2.5 GM/DL 2.4 - 3.2 [facility] A/G RATIO 1.8 0.8 - 2.0 [facility] Calcium [Mass/volume] in Serum or Plasma 9.8 MG/DL 8.4 - 10.2 [facility] Bilirubin.total [Mass/volume] in Serum or Plasma <0.7 MG/DL 0.2 - 1.3 [facility] Alkaline phosphatase [Enzymatic activity/volume] in Serum or Plasma 68 U/L 38 - 126 [facility] Aspartate aminotransferase [Enzymatic activity/volume] in Serum or Plasma 22 U/L 5 - 40 [facility] Alanine aminotransferase [Enzymatic activity/volume] in Seru m or Plasma 16 U/L 7 - 56 [facility] Anion gap 3 in Serum or Plasma 11.0 mmol/L 8.0 - 16.0 [facility] AGE 35 yrs [facility] NON-AA GFR >60 mL/min [facility] AFR AMER GFR >60 mL/min [facility] Male GFR In [...] >32 mL/min Normal ID Date Data Source [id number] 09/09/2020 06:36:00 PM EDT [facility] Name Value Range Interpretation Code Description Data [place] rce(s) Supporting Document(s) SALICYLATE <0.3 mg/dL 2.0 - 20.0 L [facility] ID Date Data Source [id number] 09/09/2020 06:29:00 PM EDT [facility] Name Value Range Interpretation Code Description Data [place] rce(s) Supporting Document(s) Acetaminophen [Presence] in Urine <5.0 UG/ML 0.0 - 30.0 [facility] ID Date Data Source [id number] 09/09/2020 06:29:00 PM EDT [facility] Name Value Range Interpretation Code Description Data [place] rce(s) Supporting Document(s) Ethanol [Moles/volume] in Blood <10.0 MG/DL [facility] ALCOHOL % 0.01 % 0.00 - 0.01 [facility] *FOR MEDICAL PURPOSES ONLY * ID Date Data Source [id number] 09/09/2020 06:18:00 PM EDT [facility] Name Value Range Interpretation Code Description Data [place] rce(s) Supporting Document(s) DRUG SCREEN URINE [facility] URINE DRUG SCREEN Amphetamine [Presence] in Urine by Screen method NEGATIVE NORMAL: N EGATIVE [facility] BARBITURATES NEGATIVE NORMAL: NEGATIVE [facility] BENZO NEGATIVE NORMAL: NEGATIVE [facility] COCAINE NEGATIVE NORMAL: NEGATIVE [facility] Tetrahydrocannabinol [Presence] in Urine NEGATIVE NORMAL: NEGATIVE [facility] OPIATES NEGATIVE NORMAL: NEGATIVE [facility] Phencyclidine [Presence] in Urine by Screen method NEGATIVE NOR MAL: NEGATIVE [facility] \\BLDo\\URINE DRUG SCR EEN INTERPRETATION\\BLDx\\ THE CUTOFFF LEVELS FOR DETECTION ARE FOLLOWS: AMPHETAMINES 1000 ng/ml BARBITUARATES 200 ng/ml BENZODIAZEPINES 100 ng/ml THC 50 ng/ml PHENCYCLIDINE 25 ng/ml OPIATES 300 ng/ml COCAINE 300 ng/ml ALL POSITIVES ARE CONSIDERED PRESUMPTIVE POSITIVE CONFIRMATION WILL BE PERFORMED AT PHYSICIAN REQUEST. ID Date Data Source [id number] 09/09/2020 06:04:00 PM EDT [facility] Name Value Range Interpretation Code Description Data [facility] rce(s) Supporting Document(s) CBC W/AUTOMATED DIFF [facility] COMPLETE BLOOD COUNT Leukocytes [#/volume] in Blood by Automated count 9.6 10^3/uL 4.2 - 1 1.0 [facility] Erythrocytes [#/volume] in Blood by Automated count 4.34 10^6/uL 4. 20 - 5.40 [facility] Hemoglobin [Mass/volume] in Blood 12.7 g/dL 12.0 - 16.0 [facility] Hematocrit [Volume Fraction] of Blood by Automated count 38.1 % 3 7.0 - 47.0 [facility] Erythrocyte mean corpuscular volume [Entitic volume] by Auto mated count 87.8 fL 81.0 - 101 [facility] Erythrocyte mean corpuscular hemoglobin [Entitic mass] by Automated count 29.3 pg 27.0 - 34.0 [facility] Erythrocyte mean corpuscular hemoglobin concentration [Mass/volume] by Automated count 33.3 g/dL 31.0 - 36.0 [facility] Erythrocyte distribution width [Ratio] by Automated count 13.5 % 11.5 - 14.5 [facility] Platelets [#/volume] in Blood by Automated count 357 10^3/uL 150 - 45 0 [facility] Platelet mean volume [Entitic volume] in Blood by Automated count 9.6 fL 7.4 - 10.4 [facility] Neutrophils/100 leukocytes in Blood by Automated count 50.9 % 37. 0 - 80.0 [facility] Lymphocytes/100 leukocytes in Blood by Manual count 39.4 % 25.0 - 40.0 [facility] Monocytes/100 leukocytes in Blood by Automated count 7.5 % 3.0 - 8.0 [facility] Eosinophils/100 leukocytes in Blood by Automated count 1.1 % 0.0 - 7.0 [facility] Basophils/100 leukocytes in Blood by Automated count 0.6 % 0.0 - 2.5 [facility] %IG 0.5 % 0.0 - 0.0 H [facility] %NRBC 0.0 % 0.0 - 0.0 [facility] Neutrophils [#/volume] in Blood by Automated count 4.86 10^3/uL 2.00 - 6.90 [facility] Lymphocytes [#/volume] in Blood by Automated count 3.77 10^3/uL 0.60 - 3.40 H [facility] Monocytes [#/volume] in Blood by Automated count 0.72 10^3/uL 0.00 - 0.90 [facility] Eosinophils [#/volume] in Blood by Automated count 0.11 10^3/uL 0.00 - 0.70 [facility] Basophils [#/volume] in Blood by Automated count 0.06 10^3/uL 0.00 - 0.20 [facility] #IG 0.05 10^3/uL 0.00 - 0.10 [facility] #NRBC 0.00 10^3/uL 0.00 - 0.00 [facility] ospital MANUAL DIFF NOT INDICATED [facility] RBC MORPH NOT INDICATED [facility] ID Date Data Source [id number] 09/09/2020 06:04:00 PM EDT [facility] Name Value Range Interpretation Code Description Data [place] rce(s) Supporting Document(s) URINALYSIS [facility] URINALYSIS SOURCE R [facility] COLOR yellow NORMAL: Yellow [facility] ospital CLARITY clear NORMAL: Clear [facility] spital Specific gravity of Urine by Test strip 1.010 1.001 - 1.030 [facility] pH 7 5 - 9 [facility] Glucose [Mass/volume] in Urine by Test strip NORM NORMAL: Negat [facility] Bilirubin.total [Presence] in Urine by Test strip NEG NORMAL: Negative [facility] Ketones [Presence] in Urine by Test strip NEG NORMAL: Negative [facility] Protein [Mass/volume] in Urine by Test strip NEG NORMAL: Negat [facility] Nitrite [Presence] in Urine by Test strip NEG NORMAL: Negative [facility] BLOOD NEG NORMAL: Negative [facility] LEUK EST NEG NORMAL: Negative [facility] Urobilinogen [Mass/volume] in Urine by Test strip NOR less kenna n 1.0 mg/dL [facility] MICROSCOPIC Not Indicate [facility] ospital ID Date Data Source [id number] 08/27/2020 04:17:02 PM EDT [facility] Name Value Range Interpretation Code Description Data [place] rce(s) Supporting Document(s) Discharge Summary [facility] HYFAKp6zPdEUJeKy33/HJQupTVTwx5KdSQemVTk8VMyhKCUpY2IgGCN3jG0bCOA6NXdUMdVyBsJgPcMx lbm PoMwaYIjBzRVFhPgaMYuNpGMqeTspqhHUiXF4HsBX4QEZzZ49aGSGnMXLkJ8AtPZQ1BZU+Vu1IMDLksM WoYG9HSufP0Y0Gv0tJCi0ywb2DR6SKirHUgdNBkXsRnmkUHwjB9wRB815VIWXHjpRANvmm/Eso2Tu37O ftKvT7GrdkSotqi15prETwbw5+XdhqGreVaS19T36G itlG/L7khy8Dgo0p3Si4KDiBXPyPZ5+gPlrmp1/5bgaN3gnCXWCVqmtpXo+1yXjumVW4//Q8qdW6UyOH d7UIkQBetly2cfTJdnV7iIcc0Nxm+f7mVIMe49AxOuuPCo5Ce8ylAu4CmeNfGGlQavexBaFiicOg84Zt L6u1ErF0BlaefXNcVa7xfLGk0MTFWxZkc4ctaBac0p OvKY5xEP4MunrvVbiYCbiY+nGp2ohILtNNT4iyExAAdyiS30xrKYDwoKh8j+RF1EKG5RKE+qRL57JKcC cJD9LW7WxpIOqqQmVK7sqhdxtqLT+q3Uf4FqOD8uOre+DDzYpNlzmjMyPejgdVo0UZpOki2HGL0V6so+ t2iHa8hhOC8ctN7va2n9mCzTzwM09g3e5R1+2NodF8 owdKWhrfxOg28h5X/QoxuuiACjzKFCS4VdMEywaEg31r+oZ1zkTuid7t1NZtrA2V9rpttnvqJ76ij41g NhGjG/pztcHZg3EFzyLq+GyZiVUSLZsWbLqwacAmUxZ/YKRJuJn5BUs2COuncsYavPajWwb9nmrrVUpr uwiR0IklsGrzenM+XVjyB+xoMHtxwCaPtTLgh59Ss3 0XH2HhnJYs9WVDNsS7/TH4LCfdQdihmLHY9WSPlME/2/ae/Y6S/k5WYvIEI4tG+EJMY/93i0r8suK9c4 wzaUhT/o1q9jswk4BEnIPYRfwHTwuI3H3RnA3MFHEMiknfXKjVYKkCkXkzIrEpitcjwQCqiKoKOM+Anc YswXQ4FTGO4sv/jOSmSOHIWPDTOIMWSSA7ahEXzZE1 [file] AgICAgICAgICAgICAgICAgICAgICAgICAgICAgICAg ICAgICAgICAgICAgICAgICAgICAgICAgICANCiAgICAgICAgICAgICAgICAgICAgICAgICAgICAgICAg ICAgICAgICAgICAgICAgICAgICAgICAgICAgICAgICAgICAgICAgICAgICAgICAgICAgICAgICAgICAg ICAgICAgICANCiAgICAgICAgICAgICAgICAgICAgIC AgICAgICAgICAgICAgICAgICAgICAgICAgICAgICAgICAgICAgICAgICAgICAgICAgICAgICAgICAgIC AgICAgICAgICAgICAgICAgICANCiAgICAgICAgICAgICAgICAgICAgICAgICAgICAgICAgICAgICAgIC AgICAgICAgICAgICAgICAgICAgICAgICAgICAgICAg ICAgICAgICAgICAgICAgICAgICAgICAgICAgICANCiAgICAgICAgICAgICAgICAgICAgICAgICAgICAg ICAgICAgICAgICAgICAgICAgICAgICAgICAgICAgICAgICAgICAgICAgICAgICAgICAgICAgICAgICAg ICAgICAgICAgICANCiAgICAgICAgICAgICAgICAgIC AgICAgICAgICAgICAgICAgICAgICAgICAgICAgICAgICAgICAgICAgICAgICAgICAgICAgICAgICAgIC AgICAgICAgICAgICAgICAgICAgICANCiAgICAgICAgICAgICAgICAgICAgICAgICAgICAgICAgICAgIC AgICAgICAgICAgICAgICAgICAgICAgICAgICAgICAg ICAgICAgICAgICAgICAgICAgICAgICAgICAgICAgICANCiAgICAgICAgICAgICAgICAgICAgICAgICAg ICAgICAgICAgICAgICAgICAgICAgICAgICAgICAgICAgICAgICAgICAgICAgICAgICAgICAgICAgICAg ICAgICAgICAgICAgICANCiAgICAgICAgICAgICAgIC AgICAgICAgICAgICAgICAgICAgICAgICAgICAgICAgICAgICAgICAgICAgICAgICAgICAgICAgICAgIC AgICAgICAgICAgICAgICAgICAgICAgICANCiAgICAgICAgICAgICAgICAgICAgICAgICAgICAgICAgIC AgICAgICAgICAgICAgICAgICAgICAgICAgICAgICAg ICAgICAgICAgICAgICAgICAgICAgICAgICAgICAgICAgICANCjw/qYXhI1cuwSXqkiB0M0hjIn3GTg9Y HK6bh0LaXKChUCexovRqSccPUuGwNSTjKyxSBtu5NHpvQB2TbFWkY5HcB5YlHBquWT3KVDSiTYWjnUEe XVTqEZOkSrF0OLRuWTaaDQ3TdCNwOIxlRKJbLZYmQd RuBMNwFKWyFRXdXZRuKDXNYNOsXODoXzUxYFCdSYIxTTvwVEAVTBV3PGVhDxHaCNRlYCSqWcCrJYMTFH 3TIcOcA8WozW93TDPfUWm+Ar6KYH4vu7UfMRf6XrBxJH2yrk8CPVzGZaVgR0TgycE6FEFzMAYrCe8VCJ OoRAAnuTG8DlQfLKOAHqHhN8OmmH10JSEUBz2+DQpl moGxEpaUVhFuQDPmi4XxGKr3SM2KXAUwSIb4yUKdTNlgX6rwxhacPRD5aA8zosqvOimpMREeaVmuWIlv XT0tCC6YAZO8XBirZs0bUINiFNCbThF5SDTVIP3XWOKbRVMdlMCcSHZpLNRIET7UORtfCGF0BLPxohUc nOHzNFnvQE2LSBUepkOmZqLvDXBRNEy+Jn2TXW5wu1 MeRBa5YKPjCB8zvw9XDXaLPxMcX6R6vLNhH8B4TBfsCd2OZIEtFSMnOiDbUEUJZOmwHG2DHE7kbtV4HP 3LuMYeHRYkAWPspJAjJAx7W91vrJXoWCglJS9NJLP+Luz+Fg3YJUKhZXZuNQSsDjIcXVZZEgTrN7LnM2 UEe6ZdO2TlGE98dGbkivUfMNjhFK2JXW0pCVEgUHPT GZ9EvGLiyF8opmJ5SvCcWOGPUcWeZ51cxITmMMVyRWRsEGYeWd0YJNGxJ8IbouGjlOxcjwPbFFRyGVYG NY1SANzlhwCahODxmHztSO03xPsiTT4XSh7RNkThHY8bfr9AlEOyVj7VJEL4UC5XQDBaVKCtTSCzLML3 FPWrWjAhOMscSCHvAVJsEUI2ADKcYDXnAH5CUlWrSG WzQLK4UOnvYWLbMCIhcm3GXVZxPIN7YHrgFFTkLYRyOAIwPDacGKYmBNIoUHE8KONkKCPxGT0BBePzWN RaHSLuCqfnFAGwXVUkui0OUCCdZNDuJOK1XbMmYUDbWPZdIJfrYMWfMAS0ICF9MFLtNLDmZM5GVgUhWT JfTSmbGmckAVQoOKIjho9RMSEqFZGrKLAqDaQdJMVd QALbRFjhOWYuNOQmJnN7THZcPMOyEV3YIqAjDVOvKZM5MxyiTLWaKAShdg9MIYIfWMOyPYE8XNTgLTXh KNPlRKuyQUFlSYK7UzL9XINiXEVkRL0ROpFoAJEjXCe2KJFoHDIxUMKmgt3OKRTfAFGmYzi0JpSdMNJd CIZfSHodEUWtAIIvLNbaCUSsZRLtNX6SQvHiGJYwEr P9NqNzEKXiIOPybh5HDBFwHKZzReF7QKAsEWLoGMDoNFnuYDBiRMEuXYc4FGIxQAFuOI4KCnRtJKIhHy LaTESzIWPdERPboy1YBSQmROYhMwUjIKViMRQrIQFnKKuyFHJgUAKgXvE8QCNgSUBwTK5STaHlZOCaLp T5ZMGaEJArHGSdfi1JXCAaKSCwSey2CfFmYMYhEIEs PKncUIEiMVG5YDY7NSRaFPPxDW2RYzGePYLlVfnxARNxVIWsODVsyv0RQYTzIKUuBFBqMwGaXLNvTWCy YYjzEHOoWKF3Ohs5MHMcHHRqGM3ASmWoKCJvCrv2YNunKSGjHEEauu9XJDThTBKsWPB3VzIpTSLrRNFi RKdrGGPlQPOsCjL1RWDaWYYiYV5MEtUhKRHkILB9Tx cvBNKhOBLgwn6CVZUzWWP7ATCqLOQnYTUnWQUwPOohRLUlPCCsZOj2CJSgVAXuFB1YLyStTEPtONAjGM MaINYtJPWepn0TZAEjXQU3HhG8DZMtDBNhUJKjCLfoPCFpPCIaRxT1NZMmEDTaTV9FJoWhPVEjJQD9Br mqNGXvAOVlyx6LBYXvALQ6KikiVXPfOTVsRIYaKQhy ZWDzHOW2COC4VVIsJLMkDM6QAvIxACXtEIN1CpFoQMOfHIFwso1PUVIcCTA3ACHmMXIpKZUbOVGgPLms YAXhHHC1OHtkFSYtLSUmDN2NOxPdGJDjOFUhGIVbFBHfQBTikr9ZQOVoMFR9Npn0QLUrOSRwTMQhEUkb XIQyUXT8SVAnUDSaSYGePW7JQaClLDKnPLalIbUyIN PeWOAvdy3LDMVkOYR5UNE3YYTeROVfBDUrRXvnZODbBCC1XQk2NTRxMBChKE2ZJoMnWJNjOaDjAYmoFC HmQMMhzd0LJTRmUPS1JZKkKqMsONJmUQVhTYhmIQNtFAvaTRa8AYDfGKIeQP2HCqWhLFIhZEU3FtwzGS VuYMKdmw1IDPCcXEC5VbJ5RxRkRSRaVLIcBNnbVRVm CQylTudfIFCjRYQaLM4JKhUnTXMcNHA2ErHsVUBnKNWkqe4XWJTyLFW9DeH5VaSvVOOiSTMiJSnbJLXu ZOzwXpI0BXQoAKBjSB2MCuKmOSYqWIR1RNUgXBShMQDzpe0XOELlOEN7Zpx3PEQqLRAyQCKtVVrqQOCf GXw6QYf8JQAySUJbAG5UYqNlACYzNXU6KJowWNFoGL Rwwg2XXIGkWPW3LxR6XDYfMXQvDGKlRUhkJCNjMPz4VjG0EOSvGEDxSF3AIvUiDLzlFOIHAbn5UZkoR6 k5YHM8KE5CM9Xlt3RoNnQuNEDVVLozES4rqlOaDPSnNm0HO0uJGbqxITH4SeGvBFurOhU8FohqIbGcQ3 XlSsOnWQXbXlV6Pa1rCXTaYaI3GYZ6MuDpQCDfNKKe VQI0VVOeYWPlDFJuYuwqUjZfON5GKh8DBwQ2WIP5tAUwMy4COBQ5XWMLPmEkYK3TEHi= ID Date Data Source [id number] 08/26/2020 04:11:50 PM EDT [facility] Name Value Range Interpretation Code Description Data Elmira rce(s) Supporting Document(s) History and Physical [facility] MPULPc7xRnCMJrJg04/PMWsuTKZed0CrVSyzAZu1ZHdqJQZzS7MxHFF2eA4uGND7SNyMDhNnRlJnSdFu lbm [file] AgICAgICAgICAgICAgICAgICAgICAgICAgICAgICAg ICAgICAgICAgICAgICAgICAgICAgICANCiAgICAgICAgICAgICAgICAgICAgICAgICAgICAgICAgICAg ICAgICAgICAgICAgICAgICAgICAgICAgICAgICAgICAgICAgICAgICAgICAgICAgICAgICAgICAgICAg ICAgICANCiAgICAgICAgICAgICAgICAgICAgICAgIC AgICAgICAgICAgICAgICAgICAgICAgICAgICAgICAgICAgICAgICAgICAgICAgICAgICAgICAgICAgIC AgICAgICAgICAgICAgICANCiAgICAgICAgICAgICAgICAgICAgICAgICAgICAgICAgICAgICAgICAgIC AgICAgICAgICAgICAgICAgICAgICAgICAgICAgICAg ICAgICAgICAgICAgICAgICAgICAgICAgICANCiAgICAgICAgICAgICAgICAgICAgICAgICAgICAgICAg ICAgICAgICAgICAgICAgICAgICAgICAgICAgICAgICAgICAgICAgICAgICAgICAgICAgICAgICAgICAg ICAgICAgICANCiAgICAgICAgICAgICAgICAgICAgIC AgICAgICAgICAgICAgICAgICAgICAgICAgICAgICAgICAgICAgICAgICAgICAgICAgICAgICAgICAgIC AgICAgICAgICAgICAgICAgICANCiAgICAgICAgICAgICAgICAgICAgICAgICAgICAgICAgICAgICAgIC AgICAgICAgICAgICAgICAgICAgICAgICAgICAgICAg ICAgICAgICAgICAgICAgICAgICAgICAgICAgICANCiAgICAgICAgICAgICAgICAgICAgICAgICAgICAg ICAgICAgICAgICAgICAgICAgICAgICAgICAgICAgICAgICAgICAgICAgICAgICAgICAgICAgICAgICAg ICAgICAgICAgICANCiAgICAgICAgICAgICAgICAgIC AgICAgICAgICAgICAgICAgICAgICAgICAgICAgICAgICAgICAgICAgICAgICAgICAgICAgICAgICAgIC AgICAgICAgICAgICAgICAgICAgICANCiAgICAgICAgICAgICAgICAgICAgICAgICAgICAgICAgICAgIC AgICAgICAgICAgICAgICAgICAgICAgICAgICAgICAg ICAgICAgICAgICAgICAgICAgICAgICAgICAgICAgICANCjw/sWDvR5emvRTknwN7L2jhZn8HNh9DRX4q q4BnDBLnHLpzdwLtHqtCMiSmQQPnWuwTLqk5MStaKF1ZsVClE6TpH1QxPPhnMW4KKGPuPDWokUPcMIOf ICZyQbF1PAJgATwnVX2OsCIhUZchWIXyACNuIpCuQR NiNDAvWDDdTGWlVYOUEYFmBAMsOhVlRYFoHTIqSGwfTAABTM6AQpPcF3EmsE72JHhSKf0+DQplbmRvYm iSYjGrGSYpz5EzNQk6NP4RVPGrYlajo9HqTRAaZRKTAUvwAI8DJZG0ZPPnTNHiKz1WQUQwZ124zzJnUB 1YXq0AJoCgFR0bfx4DDVDcHQMdQmqWSnb2MXygMT2H yCKeIHpWAlDdXbvcJNYlbRgrRChjFY6wFZ5YVFG4WFxmVL2eDBFeAXDsEpQ2HXRHUA6WIBSdYQZugHPc EVHqIFELXV4DECiwNQD7TZGjniGmtJQdSLonNN2PSCEzicVaTFSrIMLKAHc+Ul4ICO5mx7ReBXi9UaQn MJ1lad1PECnEEgZsX3F7cIEmI7U8IAlbDf3GOQMtEA VrEEfnKUWKDVbyCR5YNP5limT6FT4IrWFsEDGcCGRchFHsIAa7L67ypJLyDPexKP3LBGP+Luz+Pg0KIC EtPPAiALKlXqKfAQWACfBsW7KpO4JRa0MdV1AhZF04hTsbbvQcGAldXX1PRQ8fDVXtOAYXVT9YqDDtrY 8bcdP3LCKcMATKRtIvA52hxFRxWWDkKWReFPPaGd0Y UTMbZ1TwciZsfOhchmGaEFWeJJUNXG1FKXwwpqOgkEYhxPflLI62kRudYE5UZc7GGnRoMH8hlt1CwIVa Wl5RCBL5TU4RBGIsCJWvXBGsLNO5VLMqHlEgYXlzMVAaODZeIAU8DQVgJBAnME7BFuEhKVCtYYR7ABch OLGiVUSuwm0JEAPlYGZ4PxAvPNZeNLWtOMWwBLqrZO HxTVReHAZ0JRCuUJYxNY1FUmSeOMHtKCG4MOTxREUzOTIwwt5QRFXpELFlXCF1RTEhFOJhHCPqSSfmBM TgELQ4ENf1RWSrNULnNQ6ELjDkMIKqDLk3BXYiVRAkAIXars4JXZTpYYUxOLlrIYIuUUDiRJZlXGpbWW BcBJKjKTT9CSNpSFFqRU3SMuZjRGHsRVLlRRzaFNZc WCWwxe9FXYKhWSMmTVK1XDYiBDReLPLpSAxtGDMxNPN2YPK5JRXvVSZiQQ2GTiLdXUCmVSuoLBPvFJDy DTHpqr1OCSPaWVAkTrDjSwZzBQMrAJHgJJffCOSiPIClJzUdSPUpCUQePH7BGfAdKKVnVdA6XxQmNVCf OSBblt2AJSKdGXIfKoI4UsHcCOPzTMQmMHdwODSbLX C9MBJ4KYLxKHAvXN3KUsBmYCMqYpuqViRpLDLnEAWygp2URWOeHMHqYNDzFlEhDCKjOLFrEDffOLIdTS W0ZSM2SFAaOIPbPF0VPrImKMTvZfz5AdqkOSHuEIYqaa4SWSEgJHDkBIs7MVJkETUnTFIuRZcoPIRnWM AyOHW5NSHkHINpRQ6VKzRaSWCbMmMnNXBkVYGiJMWm rf2SAJLfJMFuXYSiFESmMBPdHLYwKVtgAIIfJWNgREJ1DLLxSBIjVC8WWdStBHQgPhLgXiIsMJKwPQLj qq6BFTVpIIYgLgC2JUXtPJWaQEWtPAhnDXLyWBChFLK6JSCwIRWiOD6QTyOoMBXqYnB3FInrERFzARNn dx9LPCFwHIGpMzk8YOItPVFfXGLtFRvrUBKuMVC8Gd kmNUZjUCEoVN0YGlCdKNZdWDS8EXZqTTUyIKPywg4AKFWzWVJ5VOqnDKMlJUInORUbTWguIDCqREV5WB X7GRNtGAHyOW0NSrEdOOBtOKZvSETaRHVuDISmea3SEEXrZHI0EyHmWRUeLMRwTNXrVDbeDUKfUIU9Dq UjQODjKWOyHV0GYiMxSVCjELy8LRStXNEoDPWnoh9R GUTzIQR1BhR2HXMnSGKdJUBfNStlLMHfKATqKgd5WECxUNHoJW3TZiSnZPPpQPK2JYDpAKMlKAAuxz0S OVJbBPN3HdM3PVRqUCEmARBnEFjwXDTaFXNuCbl0FFVtGJVhQP2WOjDlELHaSRLaPyBdXEIoYGWdxv4T OMIlXXJ6QYZwIANpTFQwQPRpPWdsXQErBKP4JQx2EZ JvNGXdYU2WPdAiVODvZPQsVWBlMRAfYDGoon2OUCDsZPF2SfE0QzWlRDYhSZQyYUcpVVRsAVH2OiZqZA YeNDViCW4HHhKtCFEvMFE3ZgjoXGDmSWFjwq9HtOYblOierk1RISoCXo7AxGmhJNK3VAjhNz0bhUQ4Ws OyJTXLVo2KpjDcRLSnNIYVKMtcKFLjRTL1ZXLxGdWb QAmaSmMlTaWfEURdISLjV6Z4Grb7FBGmJoD7SbKoYIH4TBLhUcLiADQxCTX0OOA2DtD8EBwpOKOjBVF+ NH1xDJf+Fb2Hq1TmwaM8nzFkJXt7QnJeWI1RDERJV0WGUr== ID Date Data Source [id number] 08/26/2020 02:49:08 PM EDT [facility] Name Value Range Interpretation Code Description Data [place]ira rce(s) Supporting Document(s) History and Physical [facility] QINMBl9oDpFRFeRy98/MFXslICXkg7XjAGawOPv1JWuoMNMyI5LeYCU6pL2hWIU7JMsSPyFnNrCqCjKm lbm [file] DQogICAgICAgICAgICAgICAgICAgICAgICAgICAgIC AgICAgICAgICAgICAgICAgICAgICAgICAgICAgICAgICAgICAgICAgICAgICAgICAgICAgICAgICAgIC AgICAgICAgICAgDQogICAgICAgICAgICAgICAgICAgICAgICAgICAgICAgICAgICAgICAgICAgICAgIC AgICAgICAgICAgICAgICAgICAgICAgICAgICAgICAg ICAgICAgICAgICAgICAgICAgICAgDQogICAgICAgICAgICAgICAgICAgICAgICAgICAgICAgICAgICAg ICAgICAgICAgICAgICAgICAgICAgICAgICAgICAgICAgICAgICAgICAgICAgICAgICAgICAgICAgICAg ICAgDQogICAgICAgICAgICAgICAgICAgICAgICAgIC AgICAgICAgICAgICAgICAgICAgICAgICAgICAgICAgICAgICAgICAgICAgICAgICAgICAgICAgICAgIC AgICAgICAgICAgICAgDQogICAgICAgICAgICAgICAgICAgICAgICAgICAgICAgICAgICAgICAgICAgIC AgICAgICAgICAgICAgICAgICAgICAgICAgICAgICAg ICAgICAgICAgICAgICAgICAgICAgICAgDQogICAgICAgICAgICAgICAgICAgICAgICAgICAgICAgICAg ICAgICAgICAgICAgICAgICAgICAgICAgICAgICAgICAgICAgICAgICAgICAgICAgICAgICAgICAgICAg ICAgICAgDQogICAgICAgICAgICAgICAgICAgICAgIC AgICAgICAgICAgICAgICAgICAgICAgICAgICAgICAgICAgICAgICAgICAgICAgICAgICAgICAgICAgIC AgICAgICAgICAgICAgICAgDQogICAgICAgICAgICAgICAgICAgICAgICAgICAgICAgICAgICAgICAgIC AgICAgICAgICAgICAgICAgICAgICAgICAgICAgICAg ICAgICAgICAgICAgICAgICAgICAgICAgICAgDQogICAgICAgICAgICAgICAgICAgICAgICAgICAgICAg ICAgICAgICAgICAgICAgICAgICAgICAgICAgICAgICAgICAgICAgICAgICAgICAgICAgICAgICAgICAg ICAgICAgICAgDQogICAgICAgICAgICAgICAgICAgIC AgICAgICAgICAgICAgICAgICAgICAgICAgICAgICAgICAgICAgICAgICAgICAgICAgICAgICAgICAgIC WkOGJaSPCqDITaCPWmKMWwSGAyGVx3V4mdONJkDEEmIG8bDAc6Ra9+MUjAOaDoOIP8xeBizE2BXX2kx4 MpCZxpSMKon0ZpACy4ZR8ZNGHpPKobBY2JZBaaiv2G MKJmOCPotIDZj2nwTsSnLSX1ZEOeXwyvLZ5WLABmU2veqzLpZPMdYWJTYCdeRGAZCUglWRRCXUUxBSQh MkFeQVplCK2Hy9TxuYY5YLr+Iu3NXT2gy2MbJHlbBWPqMQ6wgp6ZALdTDsHkJ6QwyoE0VEH8DJFpAe0S TUTzJWJjnILmFLRbNXHEGhZsA3ThgI14UHCHUq2+DQ neaiNdOuwCAjG9OTOdl7BaURt7WO8INWEtGAm1qPCmORNNXBK5RUUnSE5uMRACkEMnAYDeNTFJAMJ2YK oaYJ6kMYAwYXPaHbZ5SGKKLK7SRQIhRSIslYAdHGWyUHDHMJ1GSWdkMJM5ZRGenqLwbOXsEMgxYB4GPP JlbnQgMzQgMCBSDQo+Lo2MXB5lo7YoSNzeHvGzTD4q bf8EBIxWUlIfP3H2yVCgB4F5CCzkIj8SKORoQUWhKyXsYTPBVVcmNP9OAN2xoxS0AY8VqIVzXHZkNULv mEGcMHq2E96ayLOyBLurUB9OHCP+Luz+Dv7DKJUsOXZyKQZjIkZkPTLMTgVkH0SzM4XPy0IuT9RdEX03 cEzxysMiZVrnJX5TWD1yRXKwNAIOPM6PwONfwX5fek StLAGdAGSCOcRvD71mxKKzYJFpYRZlENJbAe9FZXElG8DaewMorWpgrcPuILMhDGZFJI4HMXibvnBmnG HfvVvtEO24nNrzYT9PYt0FIyMiHL9tgf4EsBAiVd7EPEBgIr6SOILxEPBrKELlZJV3TBRmDzApAZiiSN PqHXTiTVC7BSNcJENuMS7URaPpLZRnWoP6WpdoYVNk ZJWyav1STGOpDLDeQgL6OcJlUQBkGGZoYZktLSRlYHVfAAB1ISLkEPFjOL3EEkKgPGEkWKY7JjokQSUj INIbnz1MILYySKSuYcEcAuUyGEGmWLYhXKgqTBHxXED1KOH4TXCzNLCrFW9RUnSbIKPaJKH5FxBbPJPa BEJzaz1UBQVzIYJnJTH3YdPpPOBwAWNdRZmaZOWmUT Q2JANyFDNxLFObMQ2AOqKnRNKrWSX0IDMuBRGrZILric0PZETvTLLlOAx4LyMwTMXxHLZyYQjzGLHbVM ApAGJzINOwOTYxKF0MYqZfWBSvWQCrMWwaTWWzQRMldx6EHFCaHNXyTnC8MfNhMKIvKVJzTEdfDSSeTH H1KvWyQLLxRNPlCI3TVvJoYTJnSBS6FABzBRFyFXCg hh9EEYJaHQZzWXH3DJAtZTWzSGLxRIhnJRNyVOI4JdXkMRLtFMCnQF7XBnMyCLWqGVK1NVymWWFfRZLz so8LZVSnKBWrLDp1QFLfGTVoBEIbCGpkFYDsIZX6HaY5HSSlATXhWQ1BMqKkHUXiCij4FXVmPKJaQAQt zz5PAVClTNLuSkv8OfHwGESlWZHjVAkgKSKlZPV1CK TsTJCvRBLyYR5MVoOiXDQxObgmNqbuNHGtYGWjwk7RNMUrWRWaMDVxYaNvJARtKMNoRBnaPTFgGDY0MJ EqGSGxPYRvAQ2WRlNyUKZxAzy2FSiaGXSgFTMyha6KVMLdFNLpKEPlIUWzPZUkKMQtVWewYURbYJFeKk D5DPZmSXYjAL8FMdWoVBKiMqI2THzhBAOuMIVtav2V KQFcXASjWNX0OyMjMWNjYRTaUJsmXYLxQCNjFGVmXZEoDWVeYJ6JPaXtSIZfFkE5LFUuIAFsERLzds0V CILqDEUxEtAvWVFtJLEmIQQwNCs6caXhbXYyCGr5SW7LP2MxzzBzLziABv3Fp276RKZ9TJPdFs5YY2ew Bk4dHRSsTZGATy1SMEt1I2F7KACiALYdDoV8JjPcDV XqSFE8EetaAzn7X9Z8ORL+BHy2AluwP7XbQBE5Lnc7AELjRnN4XTleLGB8YLssWmHrIy7vAPWJNw2+DQ dkgWWyvGxeZFHXZhHhPeH6ZUumVKCRCq0V ID Date Data Source [id number] 08/25/2020 03:29:00 PM EDT [facility] Name Value Range Interpretation Code Description Data [place] rce(s) Supporting Document(s) SARS coronavirus 2 RNA [Presence] in Res piratory specimen by MARK with probe detection NEGATIVE [facility] This lab was ordered by [facility] a nd reported by [facility]. ID Date Data Source [id number] 08/17/2020 03:58:41 PM EDT [facility] Name Value Range Interpretation Code Description Data [place]ira rce(s) Supporting Document(s) Discharge Summary [facility] DEHVCd0pOnILJyFu61/JWHhgWGJfb3RqVWbkXYt6HHkfNKEnV4KmBCQ9uX6lRNS3TPtBLtYoYrHxWyQs lbm [file] ICAgICAgICAgICAgICAgICAgICAgICAgICAgICAgIC YdRYRoYCBqDMHrQWMpJMJeUICmDEUkOHKjVVKfURJmBQNsDKMsZV9HHNXeIJSrOIPyIEEpJNBfKHBaPN AgICAgICAgICAgICAgICAgICAgICAgICAgICAgICAgICAgICAgICAgICAgICAgICAgICAgICAgICAgIC WqZVTmSJClTEDoXHAzCHPwSAUnSQ0PETYiTHPhSHXo ICAgICAgICAgICAgICAgICAgICAgICAgICAgICAgICAgICAgICAgICAgICAgICAgICAgICAgICAgICAg BLZkUSAbZDJjLIPjFQQpLVAhNKJuWKVbGLRoHSVqMO0ROVNlUSSbCYLqHIEbFUJjHLDsMWHkVNTnOMKx ICAgICAgICAgICAgICAgICAgICAgICAgICAgICAgIC RxUFIlFMHtFZUxVPCcRPZtQZWpZECoQRMmNGStDPBcKVRzWJTlKJFlAO4ZWZKcEUNmUTHzIADxRUUoBZ AgICAgICAgICAgICAgICAgICAgICAgICAgICAgICAgICAgICAgICAgICAgICAgICAgICAgICAgICAgIC AmZJJzFAAjTDZhFSRqZOEfOCEaNYNgJI1ZPGDvGVQb ICAgICAgICAgICAgICAgICAgICAgICAgICAgICAgICAgICAgICAgICAgICAgICAgICAgICAgICAgICAg HJQsWBAwWJCpVYJlUJLsUUXvFEIbMJDgEYHmICNaELFnUA4LBEYiJRQxFFEfFTXqCGJtFMSuQCCxTOYk ICAgICAgICAgICAgICAgICAgICAgICAgICAgICAgIC XlEPHdACPuJFMwMFXnMRNyEAWrTWYpSJMuCYYzXBAtAQGmMPRxCKRuLOXxUW7WBSWjREAiDROkKXIzYN AgICAgICAgICAgICAgICAgICAgICAgICAgICAgICAgICAgICAgICAgICAgICAgICAgICAgICAgICAgIC VgBECcZITjKRLvMHGxJKWvTVMxCVAqWCTmTS8JGHCt ICAgICAgICAgICAgICAgICAgICAgICAgICAgICAgICAgICAgICAgICAgICAgICAgICAgICAgICAgICAg ITZjCTAsFYZqJUQzXGTbVMPkCAVrSXWmPYTxFYJpUAStTHSzJK3QYDNpEXZgBPGtEOFpLKNrHGRtBPCu ICAgICAgICAgICAgICAgICAgICAgICAgICAgICAgIC QxWTEbGJPjVKWzQSPdCOQcDYZuKSXaLOThCKWtLAPdZMFjKKSiUEAkUIAvGJSaNR3SXS95qQRpl4U9OV NlJG5nnlf/Wl0OHRqmhjRkvKLcJW5JHwGhDD1xbi8WUxMjCE6etg9XPYuMZxQkQ7X2hOMeSHLiIOMWVi OwX05mPXgjXo69RMipIDNwXuClHPv0Xy8OXnRrD1qh ZSQkZoX3AVWvGcZ7WUJrEvZ5HICgErEtWHLnYUGnSUNgJCFWCEV0CEIaIlBjFrTuFKXxJNdqJQZKWRMd GIJhGqHtRfVfDAGcCQ1NSNEoK880fmXeASOILi2+ZPgyvtXxQmoVPvL9STBvk7XnPIp7PW0AOGQgBdvq j9NxETdeJMAVGIryZI0ZSBK4KRT0CMLnUm5MRFMwQ6 74tyKlQH4TTz7NAaGnTT5hhk1LVBnuWZXcHozSQef9DJrbXN4DfONwUEjNyUGnjZWlO2GrV6PxpEAxvT McvCKElOGnSRMnBXAfipTwOaLcoZilnFsaSBSdMGPuFy1gRe1rJALrQKMtJfVrTHRBHT2AEOWxXUAwxE SjFACtFBWQJV7UJNjzZWU0APWdedFobTDmQXrrSF6K YXJlbnQgNTcgMCBSDQo+Ax7DVI9tf3YcMDa7MXZrSN7hyc2QGDxENmTyM2D6cLUfI5V3ZXnaIs0TTIId OQLyTLLrSNQOFDhrSI9XXN4aszP9GL1OyTDpUNGbNTTdxDMdGSi5U59bnJMfGHpxWJ8JLLP+Luz+Pg0K IXAkODEmSRPfSmNxZWUMDrXsN6XuW9OSc8BeC7NfXE 45xZwfqmLyUJtaPJ0OVH3gZBVmBGVWKI0HzTFmlN0idxQ9RzHqBFTYVeYfD79enWMgPEVjBAF0EGZeOp 7QVGMqT9JslxNnbHvyyrQaCCVbZIDXUZ6LYUlgsfPgnTBodOaaYE85aYdpHO8OHz2TAqEiCU1npa6VxZ PrIk8KDTD4CU5MBHNfEPRnIFFuULS3UXBpSsDmPCjp SOQlBSYwGEF4VKTyIDRnGT0WScPzUFJsTpU9ImYtXGHeASXzfw5RELArJWK1JUN5TIAwGMHeDLByCAvi RRVwYTCwIYS5NNJaBWKmCU0MIwTwHBCbGEFpHNimLNRdIMHjzb7HEXEaTSZpLWE9WRYuNLIuNOHmSBlg SYNxILK2FfWlPBYtZBMeQI6RStAvXVHiGRy5RKYqEI GxIDSulg1AEMGdBKChPyApQEHgIDNqMAKoOTdbIMLwYIEiTwJ0BHSzYEYhHF0NUaXgCSVzEHZ5CBhuYZ KoCVOoqb4AQPYmAAFtHcu8WIXgHALlGCTvHRphNQMsVRSgRTXwZLLeZSGmPD9YRlFpJOIiEmIbFQwzHY UuFKVvaw7QGGNfQJAkPXT3DBWyGVOoYMKsQDauQLDk HMX0Dfp8PZBoXAQpZC5ZTzAyWOLwXgv0IjQlRAUyELNihu2BRLCqWVKyZOHeYtZaPLUuKHRdBXjfFOQj GVXiPHMqJENaXSGsYA9YDeDuYEKtKnTtGphdZUXtLIJbwp5KOYHfAJInENL5XSRpLSTyRUGpIGrmZDLx KDF6ZsCmQOAzVBAjOD0KQjYnTXFuPgJ2YPWhZGYlBI Czxh6TTBNkJNChAfqzSqRrZNIvUCIuGYbzGXJjDZN2Bmd1UXWsLAYgBX3UDwHdTHCbSmn7DwZbSMIlPK Iuuk4PASEnNGDlYRP0YzDlALHkWMKnTHsvEYSrAQC2TYJ0WXTzGQNhEB7MFpVrZAKvEfacASrdIAZmHC Yknx7RUGMcEFZuWWLwMTQjRQBpVZGlLCedQHDlMYXk OZO4KDSsSNDgRX7YNbSpPLCyGEU4JoCnSIDaDTVxym7TTEEnDCW2VPk5ZPYoEWPjUOAeELqlLJSnEODu KZJ8VUEzMDGmXH5KMmLhIUNtRNRnAYYmEUIyQVSbjn6YGRCvJJF4SyB3TJCiWXEcXKBzWNgiGPDrUXKf HLD4MWOmQYSnFO5VGbXwDTAlMTTqIBooTYDpRKDbko 5JDYCoIGO7PdN0LAAjXJAuSFCcOUboZWKtUAV5IDCqELRrYDSfUL4MOcYbFTKhBQVxJVPhCUIiKYCcjg 5EKSBuVOK9JQC4IRMuMYCfWYHzVRvpTIEbAZK4Vcf4OPTgMQDoYE4VUlBqMNNjEEP8BPSpFVOgCQCrqd 3NRFLrXNB2VYekJSTkSVGwQGDaAEfhBEFfHTCoSZQ4 DFRlWSFdTQ7WRmLdJCVtNmHmGrSuPWQzBOGrgr9FFCGvPET6QUU8RELxHNMxLPHcCRitENKmZVBiYoV1 GYDgMICsVZ4GEuKlZHEiSoS4QnBnXTTrCCWunu7MLYGfETN5Xqm4OYDtPJBlXKMrZBdbMHOaVKSlHXO3 MSCkPFEmXS1VUzCzBKJiSuHrUSQoRRHwXICxbg2IOX TxXOM2PuL3MDUeCAHyWWVoYCcnSUGmGIRiRHRjTJNwNRTaRC8JUuUbIAXuHzQyFYtcEXLpGHNjjx7ADM BeTSY2WSK1LNZtBYEaDRMmUPfvKYEuTEB0HhY9MHNcOYGyRC2IWgYgCZGuOhX7BvkdJEPeQHIryu0KrO RlvOkqkd1QGUqGEe1RgNxqEWGeAXcnEl7rkQL8UTJc KEWOBu3WucVuSGVwWRFQQFkxVAEwNKHrAEYgHDp5YBEmH3AjB1N4StHqUZAqIRP9RVqpNNorJgR4D4Mu NUPrDfD9PfU0YFQ4TuGbOYLnRWB2DLp4LWK9A0W+ST8oUVv+Fi2Dt4JjvrQ2xdUmNRb0QvMoPV4KDETL T0YNCg== ID Date Data Source [id number] 08/15/2020 07:55:53 PM EDT [facility] Name Value Range Interpretation Code Description Data [place] rce(s) Supporting Document(s) Color of Urine [facility] Clarity of Urine [facility] Specific gravity of Urine by Refractometry automated 1.010 1.003 -1.030 [facility] pH of Urine by Automated test strip 7.0 5.0-8.0 [facility] Protein [Mass/volume] in Urine by Automated test strip Neg [facility] Glucose [Mass/volume] in Urine by Automated test strip Neg [facility] Ketones [Mass/volume] in Urine by Automated test strip Neg [facility] Bilirubin.total [Presence] in Urine by Automated test strip Negative [facility] Hemoglobin [Presence] in Urine by Automated test strip Neg [facility] Leukocyte esterase [Presence] in Urine by Automated test strip Negative [facility] Nitrite [Presence] in Urine by Automated test strip Negati [facility] Leukocytes [#/area] in Urine sediment by Automated count 0 -5 [facility] Erythrocytes [#/area] in Urine sediment by Automated count 0-3 [facility] ID Date Data Source [id number] 08/08/2020 03:50:12 PM EDT [facility] Name Value Range Interpretation Code Description Data [place] e(s) Supporting Document(s) History and Physical [facility] JTMRQj5zRxZQLuQj19/LRZtnTFCxc0UrMBqbOKe0KTdbBIVgK2QtZYO2cV7hCMW6EUkSNhVkVsWrZjQa lbm [file] HmwWbtYFYQBiVlSDF5HMuiGFEZRa7K ID Date Data Source [id number] 08/07/2020 04:12:43 PM EDT [facility] Name Value Range Interpretation Code Description Data [place] e(s) Supporting Document(s) History and Physical [facility] HFYMNu1qPwZULdYo02/NHQviOCKpi4OoMRskGEq6ECwuCZUsK7JyLSG7fP7xWCM6JVpNOzZfLaLjFjSy lbm [file] ICAgICAgICAgICAgICAgICAgICAgICAgICAgICAgICAgICAgICAgICAgICAgICAgICAgICAgICAgICAg TQDaJYWfEOFtMHCgAJFaAP5RPRJeKGToOFCqOZToIZAwNMKsNLLxHSEvPRDcIJFkOTLlESOnSPRuUPGk ICAgICAgICAgICAgICAgICAgICAgICAgICAgICAgIC FqOLOpOIDkDCWjHDCyYYRjTDCgLVSuTZCxLU4TVQWzGHRwKXJfYQHdAIOmCEPkDYWkPRNyFUXvIFSjQS AgICAgICAgICAgICAgICAgICAgICAgICAgICAgICAgICAgICAgICAgICAgICAgICAgICAgICAgICAgIC NiUGRlTGVpVE7CDIVoUXWoZFXkPHUtAOKsGXHyTUXw ICAgICAgICAgICAgICAgICAgICAgICAgICAgICAgICAgICAgICAgICAgICAgICAgICAgICAgICAgICAg MYBjRCNyRENbXWAhQCOjQBOhCX6NDMBwBNFoYKZzEQChIQOpSNFaGGKlJVZzIILcFHHtPKWcNNJuUSFb ICAgICAgICAgICAgICAgICAgICAgICAgICAgICAgIC NySXYaVWToYOHaGECzVOIwZDRlLHQpXUJwUWZpKS3KKVNzROZkGVPvKMDcIMTlCPEdSQAiOFEaBAViEP AgICAgICAgICAgICAgICAgICAgICAgICAgICAgICAgICAgICAgICAgICAgICAgICAgICAgICAgICAgIC IeCUAyOMOqWYHaQC2TBBYgZNQtPBYoRSUnHCTpBTWu ICAgICAgICAgICAgICAgICAgICAgICAgICAgICAgICAgICAgICAgICAgICAgICAgICAgICAgICAgICAg XOCcBQHmEWCmTVEsZHWdNBLiJJWcUK4HJAXaUNSrKCQvFPYkNLBqKXAiTFCoAOZcWDEzUJYeEWWsPKFr ICAgICAgICAgICAgICAgICAgICAgICAgICAgICAgIC WqROKkRZChEHStUNRdYHZdNJPkYMJkDTUnBRNkVQYdGH9QDBAzBQQtEGMlDRHiIWJeCMMfBWEiSBGsFD AgICAgICAgICAgICAgICAgICAgICAgICAgICAgICAgICAgICAgICAgICAgICAgICAgICAgICAgICAgIC IdHHTfFYNgIDIzTKIrYU0KJRIoDCKeYEVrVOApAGVb ICAgICAgICAgICAgICAgICAgICAgICAgICAgICAgICAgICAgICAgICAgICAgICAgICAgICAgICAgICAg IDYyAKOhTLXnMDQmABNlZKVtIAOzVXDjDC4SVE37iHKjk8L3ARNsBI5xlvm/Rg8NGRzvxcYhsPMaGR8I BmMwVU7ygd3NDxMnHX7oeb1KGGlLQiLdX7R4qKEkZR AwAMJPPyJtJ83pJZgyUy11QJpxQFCcGkWkIFn8Id7TVsFsA4arFGUnUyD5CRCnMwP2XHJgOhQ8TEAcHc SpMYLgNSVwRPAiGOZZACQ8CCSxGqFbLlIeNJJaSI3GWZUqN409rmCrOy9HSl5MAeYpOW2kpo7NTZCwRP CrBqkUGrx5GWmvCY8BgDHbwOC2XFNkJGGUVxZsI2sq b8OyDZZhZONUTJpxZW5Zf5XcgRTvXEv+Kh4JSA4xu7KzRSw5NZInLV2yjy8ISFdGIiEnU6RowKzjDGxo FZSxeWCKdWLdkBQkhYJgCXURiSxqDFYqFC3WEFX3YLXlJIOoIeMhQAFwYQe8UwAWBZyXBiHiE4Fnb1Od XnC0FXPcIaIvAIbbXYTtUsL2IA69oYclVT0BXUCdWH WqKX97ZNDfIBVkPd8ZPh7DDzCzQX9kul2RVPXpKUNiYcpBAlb2CQzlJN9HuFNyP6EgfZWjg2eXEpTdW0 XBBERnEAEkYa4QBXBdOtFjTFAyAYhwBZ8wMCPeYTCLeEegrpE6GO9YFG3szwEvXH5FUcDfGl5aMr5IEp HbC6XdC9JwGHDfBVELLKdyUY0LXDiiHC4uVT6Iv1OX rGBlxP3edp3EUWPaKJKyQernfc3XJensK2F3wYwpBTKhZOXdIGDHRHtbXY0XXVCcKTO3GRH5VtOvIRCX XySoK23kJZ7PJ7Xsw70vVhQ0ZTFcLmHvOZddOK83cKjnifCduAEklUvyFL5KGd8+DQplbmRvYmoNCnhy BHPHPnWrDPOPVcLmYTIsSKXlZZKzJhT2ZvMwKe9FJB MfIDZnJEOrEeHaYMQzJFEnEBcfSELtIED5BAT2LPIeAIKyPZ2QVlXbQOMjEov0UEYsSOTvATEexg3VUI VtLTUlLPL8BhLyIUFqSSFhPDlrTGTcNLYgALJ9RHMiCPNtST7NGwAlZBBdMXOtZSQbEQDdKLRshs8TJU TqXGBlAaQhBfIoPVCvVCRyQHbpGQRrFXC8YXE0RXPu WWTyWM9VMiMvDRQtJEC9QbIvJTGyBVDmrl1QWEVxHCNtVWWoVmBaBUJcFAWoVWhlCWOgNZP2KOw6ZMKd PTJiUL1RIzZiPIKdJEUiQMAgSCDyKLFnmz9DHMKrLJPoMBx8XOHdWFNlRPGlLZriOKWrQLC1NSD9EEAs ACGrMN7JUzNfTGFjHwT5VbGeLQJzLVYyno8KBKMnDL DySrZkDiLlNTCuUZMyTIpiYEBgNAZjNECtQBKsLDWqGD7IRuDsXVNiUvN7UgtqJVRxIKNdsh1JREXuYU BjSUJeWKTyUVYpYNSgXPamNGErSSL8ULA1ZVFvYJZsPU5PHdBqYHFbOnJuXLcfQTQnXDBegh2JCZInAQ VaAZl2FtPvLAIfJGOgLWnmWIHiFRX9KKN2IRGrQEMc BQ7UZgAcJTDmOxQcVMtvRWMhCVZrgk2OVMDsORYqMcYcNuWyBCEwCMGgQHawFJJpDKM7GZN5DSPkJXOj IL8WKkYjTOJfRgm1UTcqTVFmPBCzcr4PCCGfLPBcVAN4FzTpFFFyEGFiUZokEMVqLZT1AUUtISFmHVZa HH4QAwUmVDXoLkinTXBuBPAgDZCwpd0YZLZgQOHvZP GrMINlOJYoCBFpLVbpRXLrVAHeWiP1NSMcRAFyAR8VInKlPAAhCgM8EEDvGIYgAHQnbu6PYIVsTXUjQB E8WEEgPWRyPLYaXDmaHFUyVUP8SQayILCeEVAxPO7NQtHnQQXxIxX6YTuaTPMsGGTpdh2MGLFfWHQbMo M2QVGaATPjOCBvPJcxOZEmYXP9McW1VYGdMKYdWL8N AfIoFYAaPvN9VKlvMZZqHZSyvx9VMVPrQWHfJeM6ERAnCEGmVIDpRRrdVOGpGIN0OFR1KXTjJLZvJT7Y OxOlOFDrKchrIyQbBYNwVZCjhm8TAWPdMNYnUSo4NRYcZXUiRJVsEEcnHDDaYTY4OSO4THTbHWQhYJ3C DtPtCFZaLwp9KhJeRWRwUUBisr5WzWKzfIyznq9GJQ sQXl3HtVzdTSC2TNuvOx1pmEJ2ICPbKXIMDx3YruAsZZFgPWZSHEqlJHTsWYX7VSm9BbEgNPG5LQruUY AxWgE8GmMxWtUxWIF2JVvnKiR0IxmnQiLdPOCjEKK2ZLNkLDNlQfTcTlDbCHBzKPqpOZG+DT3jKSn+Pg 8Ho2AmieD0xfVxHTtjAXLhWV0UAIDWP8TQDg== ID Date Data Source [id number] 08/06/2020 12:10:00 PM EDT [facility] Name Value Range Interpretation Code Description Data [place] rce(s) Supporting Document(s) SARS coronavirus 2 RNA [Presence] in Res piratory specimen by MARK with probe detection NEGATIVE [facility] This lab was ordered by [facility] a nd reported by [facility]. ID Date Data Source [id number] 07/28/2020 01:05:00 PM EDT [facility] Name Value Range Interpretation Code Description Data [place] rce(s) Supporting Document(s) SARS coronavirus 2 RNA [Presence] in Res piratory specimen by MARK with probe detection NEGATIVE [facility] This lab was ordered by [facility] a nd reported by [facility]. ID Date Data Source [id number] 06/28/2020 07:41:00 PM EDT [facility] 1 OrderSheet [facility] Emergency Department [address] [place] [address] Phone #: [phone]- [phone] 06/28/2020 19:40 Patient: BRUNA LEE Sex: F [...] PO 1000 19:56 06/28/2020 Ack'd: 19:56 20:01 Jp,Mariana Stuart; Reason for ordering with alerts: Clinical consideration [...] (20:04 06/29/2020)][Electronically locked by Wilmer Maldonado RN (21:08 06/28/2020)] Name Value Range Interpretation Code Description Data [place] rce(s) Supporting Document(s) ID Date Data Source [id number] 06/28/2020 07:41:00 PM EDT [facility] 1 Medication Reconciliation Report [facility] Emergency Department [address] [place] [address] Phone #: ext- [phone] 06/28/2020 19:40 Patient: [...] Medication information:Not obtained. 2 Medication Reconciliation Report [facility] Emergency Department [address] [place] [address] Phone #: [phone]- [phone] 06/28/2020 19:40 Patient: [...] rce(s) Supporting Document(s) ID Date Data Source [id number] 06/28/2020 07:41:00 PM EDT [facility] 1 Medication Administration Record [facility] Emergency Department [address] [place] [address] Phone #: ext- [phone] 06/28/2020 19:40 Patient: [...] rce(s) Supporting Document(s) ID Date Data Source [id number] 06/28/2020 07:41:00 PM EDT [facility] 1 General Instructions [facility] Emergency Department [address] [place] [address] Phone #: ext- [phone] 06/28/2020 19:40 Patient: [...] patient. ADDITIONAL INFORMATIONDrug Abuse 2 General Instructions [facility] Emergency Department [address] [place] [address] Phone #: ext- [phone] 06/28/2020 19:40 Patient: BRUNA LEE Sex: F [...] job or your family Arrest, conviction, and longterm sentence for possession of an illegal substance [...] to continue abusing drugs. 3 General Instructions [facility] Emergency Department [address] [place] [address] Phone #: ext- [phone] 06/28/2020 19:40 -- Patient: BRUNA LEE Sex: F : 1985 Age: 35y Eat a balanced diet and start a regular exercise program.Follow-up careFollow up with your healthcare provider, or as advised. Contact one of the resources below for help: National [place] on Alcoholism and Drug Dependence, www.ncadd.org, Narcotics Anonymous, www.na.org, National Alcohol and Substance Abuse Information Center, www.[employer], . This center can refer you to a treatment program.Call 206Ukpp 700 if any of the following occur: Seizure [...] at an injection site 4 General Instructions [facility] Emergency Department [address] [place] [address] Phone #: ext- [phone] 06/28/2020 19:40 Patient: BRUNA LEE Sex: F : 1985 Age: 35y [phone] [employer] [place] [address]. All rights reserved. This information is not [...] yourself out of the 5 General Instructions [facility] Emergency Department [address] [place] [address] Phone #: ext- [phone] 06/28/2020 19:40 Patient: BRUNA LEE Sex: F [...] You have trouble speaking Your vision changes [phone] [employer]. [address] [place] [address], [place] [address]. All rights reserved. This information is not intended as asubstitute for professional medical care. Always follow your healthcare professional's instructions. You have been given the following additional information: Drug Abuse Headache, Tension 6 General Instructions [facility] Emergency Department [address] [place] [address] Phone #: ext- [phone] 06/28/2020 19:40 ------- Patient: BRUNA LEE Sex: F : 1985 Age: 35y(Electronically signed by RASHID Godwin 06/29/2020 20:04) Name Value Range Interpretation Code Description Data [place] rce(s) Supporting Document(s) ID Date Data Source [id number] 06/28/2020 07:41:00 PM EDT [facility] 1 Clinical Report - Nurses [facility] Emergency Department [address] [place] [address] Phone #: pto- [phone] 06/28/2020 19:40 Patient: BRUNA LEE Sex: F [...] for.Pt states she was seen at [facility] and left AMA because she was not being seen. Pt is able to speak in fullclear sentences, in NAD at this time sating at 96% on RA. 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 [...] 06/28/20 Kelly Chand R.N. Provasac. --19:49 06/28/20 Melaragno, Kelly, R.N. Unknown stomach pill. --19:49 06/28/20 Kelly Chand R.N. PriLOSEC Oral. RisperDAL Oral. Strattera Oral. --19:50 06/28/20 Kelly Chand R.N.AllergiesPenicillins.(hives)Sulfa Antibiotics. --19:49 06/28/20 Kelly Chand R.N. 2 Clinical Report - Nurses [facility] Emergency Department [address] [place] [address] Phone #: ext- [phone] 06/28/2020 19:40 Patient: [...] no deficiencies. 3 Clinical Report - Nurses [facility] Emergency Department [address] [place] [address] Phone #: ext- [phone] 06/28/2020 19:40 Patient: [...] bed on. --19:51 06/28/20 Kelly Chand R.N. 20:06/28/2020 Toradol (Ketorolac Tromethamine) IM 60 mg given. [...] reaction, precautions and sedative warning. Verbalizes understanding. --20:01 06/28/20 Mariana Trammell 4 Clinical Report - Nurses [facility] Emergency Department [address] [place] [address] Phone #: ext- [phone] 06/28/2020 19:40 Patient: [...] 100%. --20:46 06/28/20 Mariana Trammell.DISPOSITION / DISCHARGE [place] Coma Scale: 15- eyes open- spontaneous (4); best verbal response- oriented (5); best motor response- obeys commands (6). Departure time: 21:06/28/2020. Condition at departure: improved. No learning barriers present. Discharge instructions provided and reviewed with the patient. Reviewed referral to family practice for followup. Patient verbalized understanding. Written instructions not provided in Ecuadorean. The patient was discharged home. She left [...] rce(s) Supporting Document(s) ID Date Data Source [id number] 06/28/2020 07:41:00 PM EDT [facility] 1 Clinical Report - Physicians/Mid Levels [facility] Emergency Department [address] [place] [address] Phone #: ext- [phone] 06/28/2020 19:40 Patient: BRUNA LEE Sex: F [...] Pt states she was seen at [facility] and left AMA because she [...] Abuse.Schizophrenia.Pharyngitis.Polysubstance abuse. 2 Clinical Report - Physicians/Mid [facility] Emergency Department [address] [place] [address] Phone #: pdp- [phone] 06/28/2020 19:40 Patient: BRUNA LEE Sex: F [...] ROM. 3 Clinical Report - Physicians/Mid Levels [facility] Emergency Department [address] [place] [address] Phone #: ext- [phone] 06/28/2020 19:40 Patient: BRUNA LEE Sex: F : 1985 Age: 35y Neuro: Oriented X 3.PROGRESS AND PROCEDURESCourse of Care: :Jun 28 2020. Evaluation after observation. (Discussed risks, benefits, optionsand pt needs to follow up with her PCP). Patient counseled in person regarding the patient's stable condition, diagnosis and need for follow-up. Patient agrees with plan of care. :Jun 28 2020. Disposition: Discharged home in good [...] referral: 4 Clinical Report - Physicians/Mid Levels [facility] Emergency Department [address] [place] [address] Phone #: ext- [phone] 06/28/2020 19:40 Patient: BRUNA LEE Sex: F : 1985 Age: 35y e valuation and treatment. Summary of care provided to patient. Understanding of the discharge instructions verbalized by patient.(Electronically signed by RASHID Godwin 06/29/2020 20:04) Name Value Range Interpretation Code Description Data [place] rce(s) Supporting Document(s) ID Date Data Source [id number] 06/17/2020 08:41:00 [place] [address] RESPIRATORY CARE REPORT ==== ---------NAME------- NUMBER SEX AGE ADMIT DISC. XRAY# F/C TYPECOME BRUNA [id number] F 34 06/16/20 06/16/20 [id number] X6B E/R DATE OF : 1985 M/R# [id number] #: [id number] TR-03 LOCATION: EMERGENCY DEPT EKG [id number] COMP LETE:06/17/20 02:50 VMT [id number] PHYSICIAN: HIEU CLIFFORD KARAN Name Value Range Interpretation Code Description Data [place] rce(s) Supporting Document(s) ID Date Data Source [id number] 06/17/2020 10:02:00 AM EDT [facility] [address] [place] [address] PHONE: [phone] FAX: [phone] Name .................. : JESUS MOSLEY Acct Number.................. : [id number] ROOM. ................. : TR-03 Number ................... : [id number] Stay type ............. : E/R Discharge Date......... ... : 06/16/20 Admit Date ......... : 06/16/20 Admit Phys .................... : HIEU JENSEN Date of ....... : 1985 Family Phys ................... : NON STAFF Phone .................. : [phone] Age ................................ : 34 Film# .................. .:[id number] Sex ................................. : F Unsigned transcriptions are preliminary reports and do not represent a medical or legal document CHEST PORTABLE [id number] COMPLETE:06/16/20 19:31 KHAI 9302 Reason( s): Chest Pain PORTABLE CHEST X-RAY: INDICATION: Chest pain. FINDINGS: The cardiac and mediastinal silhouettes appear normal and the lungs are clear. The bones and soft tissues are normal. The upper abdomen is unremarkable. IMPRESSION: No acute disease identifiable. Electronically Reviewed and Signed By Dakota Fernández M.D. , 06/17/20 10:03, [facility] Transcribe Initials: DZ , Transcribe Date: 06/16/20 21:15, Dictation Date: Copy for: REJI Bundy via fax Copy for: EMERGENCY DEPT via modeRekoo Copy for: 710 MED REC DISCHARGED Page 1 of 1 Name Value Range Interpretation Code Description Data [place] rce(s) Supporting Document(s) ID Date Data Source [id number] 06/16/2020 04:22:00 PM EDT [facility] 1 OrderSheet [facility] Emergency Department [address] [place] [address] Phone #: ext- [phone] 06/16/2020 16:20 Patient: BRUNA LEE Sex: F : 1985 Age: 34yWEIGHT:70.7 kg (S) HEIGHT:60 inches (S) BMI:30.4ALLERGIES: Penicillins, Sulfa AntibioticsCHIEF COMPLAINT: bizarre behaviorDIAGNOSIS: Abdominal painLAB ORDERSOrder Description Priority Entered Acknowledged InitialedBeta-HCG, Quant STAT 17:06/16/2020 18:22 Prieto,Serum Jyotsna MIKE; Nora BLUEC w Diff STAT 17:06/16/2020 18:22 Jyotsna Moreau; Nora BECKERCMP STAT 17:06/16/2020 18:22 Jyotsna Moreau; Nora RNETOH STAT 17:06 [...] STAT 17:06 06/16/2020 18:22 Jyotsna Moreau; Nora BECKERUrinalysis (Clean STAT 17:06 06/16/2020 18:52 Mariah Espinal) Jyotsna MIKE; R.N.Urine Drug Screen STAT 17:06 06/16/2020 18:52 Ruthie Espinal; R.N.Venous Blood Gas STAT 17:06 06/16/2020 18:22 Jyotsna Moreau; Nora BECKERDIAGNOSTIC STUDY ORDERSOrder Description Priority Entered Acknowledged Initialed 2 OrderSheet [facility] Emergency Department [address] [place] [address] Phone #: ext- [phone] 06/16/2020 16:20 --------- Patient: BRUNA LEE Sex: F : 1985 Age: 34yChest Portable 1 STAT 17:06 06/16/2020 18:22 Prieto,View Jyotsna MIKE; Nora BECKER(Oxygen?(No)) Reason for Study: Chest PainMEDICATION/IV/DRIP/FLUID [...] (03:08 06/17/2020)][Electronically locked by Jovan Damon R.N. (03:06/17/2020)] Name Value Range Interpretation Code Description Data [place] rce(s) Supporting Document(s) ID Date Data Source [id number] 06/16/2020 04:22:00 PM EDT [facility] 1 Medication Reconciliation Report [facility] Emergency Department [address] [place] [address] Phone #: ext- [phone] 06/16/2020 16:20 Patient: [...] to the patient:None. 2 Medication Reconciliation Report [facility] Emergency Department [address] [place] [address] Phone #: ext- [phone] 06/16/2020 16:20 Patient: BRUNA LEE Sex: F : 1985 Age: 34y Name Value Range Interpretation Code Description Data [facility](s) Supporting Document(s) ID Date Data Source [id number] 06/16/2020 04:22:00 PM EDT [place] [address] Medication Administration Record [facility] Emergency Department [address] [place] [address] Phone #: ext- [phone] 06/16/2020 16:20 Patient: BRUNA LEE Sex: F : 1985 Age: 34yWeight: 70.7 kgHeight/Length: 60 inBMI: 30.4ALLERGIES: Penicillins, Sulfa AntibioticsDate/Time Medication Administered Medication Ordered Name Value Range Interpretation Code Description Data [place] rce(s) Supporting Document(s) ID Date Data Source [id number] 06/16/2020 04:22:00 PM EDT [facility] 1 General Instructions [facility] Emergency Department [address] [place] [address] Phone #: ext- [phone] 06/16/2020 16:20 Patient: [...] with patientand understanding verbalized. 2 General Instructions [facility] Emergency Department [address] [place] [address] Phone #: ext- [phone] 06/16/2020 16:20 Patient: [...] may also be needed. 3 General Instructions [facility] Emergency Department [address] [place] [address] Phone #: ext- [phone] 06/16/2020 16:20 Patient: BRUNA LEE Sex: F : 1985 [facility] 34[facility] provider may prescribe medicine for pain, [...] begin to improve in thenext 24 hours.Call [phone] if any of these occur: Trouble breathing Confusion 4 General Instructions [facility] Emergency Department [address] [place] [address] Phone #: ext- [phone] 06/16/2020 16:20 Patient: BRUNA LEE Sex: F [...] or water and you are getting dehydrated [employer]. [address] [place] [address]. All rights reserved. This information is not intended as asubstitute for professional medical care. Always follow your healthcare professional's instructions.[place] DietYour healthcare provider may recommend a bland diet if you have an upset stomach. It consists offoods that are mild and easy to digest. It is better to eat small frequent meals rather than 3 largemeals a day. 5 General Instructions [facility] Emergency Department [address] [place] [address] Phone #: ext- [phone] 06/16/2020 16:20 Patient: [...] of fruit, dried fruitMeats 6 General Instructions [facility] Emergency Department [address] [place] [address] Phone #: ext- [phone] 06/16/2020 16:20 Patient: [...] extracts, kristopher, cinnamon, thyme, mace, allspice, paprikaAvoid: Xenia powder, cloves, pepper, seed spices, garlic, gravy pickles, highly seasoned saladdressings [phone] [employer] [place] [address]. All rights reserved. This information is not intended as asubstitute for professional medical care. Always follow your healthcare professional's instructions.Clear Liquid Diet 7 General Instructions [facility] Emergency Department [address] [place] [address] Phone #: [phone] ihz- [phone] 06/16/2020 16:20 Patient: BRUNA LEE Sex: F [...] grocery stores. You don't need aprescription. [employer]. [address] [place] [address]. All rights reserved. This information is not intended as asubstitute for professional medical care. Always follow your healthcare professional's instructions. You have been given the following additional information: Abdominal Pain, Unknown Cause, (Female) Diet, [place] (Adult) Clear Liquid Diet 8 General Instructions [facility] Emergency Department [address] [place] [address] Phone #: ext- [phone] 06/16/2020 16:20 Patient: BRUNA LEE Sex: F : 1985 Age: 34yNo strenuous activity until better. Rest at home for one days.(Electronically signed by RASHID Sanchez 06/16/2020 21:17) Name Value Range Interpretation Code Description Data [place] rce(s) Supporting Document(s) ID Date Data Source [id number] 06/16/2020 04:22:00 PM EDT [facility] 1 Clinical Report - Nurses [facility] Emergency Department [address] [place] [address] Phone #: ext- [phone] 06/16/2020 16:20 Patient: BRUNA LEE Sex: F : 1985 Age: 34yTRIAGEArrived by EMS. Historian: patient. Unaccompanied. ( went to [facility] today for feeling like she had beenpoisoned, she thinks her mother and sister poisoned, feels like she is going down hill with her health, shestates she is suing [facility] because they are not listening to her, taken away from [facility] by polic).Acuity: LEVEL 4.Chief Complaint: BIZARRE BEHAVIOR.Alert.Onset. 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 SEPSIS SCREEN NEGATIVE. No suspected or confirmedsigns of infection present. --16:29 06/16/20 Ruthie Espinal R.N.16:06/16/20. BP: 119/74. MAP: 89. HR: 87. RR: [...] --16:26 06/16/20 Ruthie Espinal R.N. PriLOSEC Oral. --16:06/16/20 Ruthie Espinal R.N.AllergiesPenicillins.(hives)Sulfa Antibiotics. --16:06/16/20 Ruthie Espinal R.N.PROBLEMS:Peptic Ulcer Disease. 2 Clinical Report - Nurses [facility] Emergency Department [address] [place] [address] Phone #: ext- [phone] 06/16/2020 16:20 [...] - current status unknown. --03:08 06/17/20 Jovan Maldnoado R.N. 3 Clinical Report - Nurses [facility] Emergency Department [address] [place] [address] Phone #: ext- [phone] 06/16/2020 16:20 [id number] Sex: F : 1985 Age: 34y Interventions [...] Moreau, RN 4 Clinical Report - Nurses [facility] Emergency Department [address] [place] [address] Phone #: ext- [phone] 06/16/2020 16:20 Patient: BRUNA LEE Sex: F : 1985 Age: 34y 18:00 06/16/20. BP: 114/54. MAP: 74. HR: 78. RR: 18. O2 saturation: 99%. --18:47 06/16/20 Ruthie Espinal R.N. Care transferred (jovan). --19:04 06/16/20 Ruthie Espinal R.N.DISPOSITION / DISCHARGE Departure time: 20:06/16/2020. Condition at departure: improved and stable. Discharge instructions provided and reviewed with the patient. Follow up contact number 3 days with PCP. Patient verbalized understanding. Written instructions provided in Ecuadorean. The patient was discharged by the physician energy assistant. She was discharged home. She left via private vehicle and taxi. --20:18 06/16/20 Jovan Maldonado R.N. 20:00 06/16/20. BP: 121/50. MAP: 73. HR: 83. RR: 16. O2 saturation: 96%. Temp: 97.8 F. Pain level now: 3/10. --20:18 06/16/20 Jovan Maldonado R.N.Locked/Released at 06/17/2020 03:08 by Jovan Maldonado R.N. Name Value Range Interpretation Code Description Data [place] rce(s) Supporting Document(s) ID Date Data Source [id number] 06/16/2020 04:22:00 PM EDT [facility] 1 Clinical Report - Physicians/Mid Levels [facility] Emergency Department [address] [place] [address] Phone #: ext- [phone] 06/16/2020 16:20 Patient: [...] a health care provider (went to [facility] today twice, escorted off property [...] Schizophrenia. Pharyngitis. 2 Clinical Report - Physicians/Mid [facility] Emergency Department [address] [place] [address] Phone #: ext- [phone] 06/16/2020 16:20 Patient: [...] Reflexes normal. 3 Clinical Report - Physicians/Mid [facility] Emergency Department [address] [place] [address] Phone #: ext- [phone] 06/16/2020 16:20 Patient: [...] Weeks post LMP 5.4-708 mU/mL 3-4 Weeks 217-88709 mU/mL 5-6 Weeks 4059-994869 mU/mL 7-8 Weeks 44776-753813 mU/mL 9-10 Weeks 18560-47443 mU/mL 12-14 Weeks 63383-94107 mU/mL 15-16 Weeks 8240-04788 mU/mL 17-18 Weeks CBC w Diff: (JENN: [...] PANEL 4 Clinical Report - Physicians/Mid Levels [facility] Emergency Department [address] [place] [address] Phone #: ext- [phone] 06/16/2020 16:20 Patient: [...] Male GFR Interprentation 20-49 yrs >60 mL/min Vlfqdt96-92 yrs >56 mL/min Normal 60-69 yrs >49 mL/min Normal 70-79yrs>42 mL/min Normal 80 and above >35 mL/min Normal Female GFRInterpretation 20-39 yrs >60 mL/min Normal 40-49 yrs >58 mL/minNormal 50-59 yrs >51 mL/min Normal 60-69 yrs >45 mL/min Shzbru63-16 yrs >39 mL/min Normal 80 and above >32 mL/min NormalETOH: (JENN: 06/16/2020 18:16) ( [facility]/16[facility] 19:11) Final results Test Result Flag Units (Reference) ALCOHOL <10.0 MG/DL ALCOHOL % 0.01 % (0.00 - 0.01) *FOR MEDICAL PURPOSES ONLY*Lactic Acid: (JENN: 06/16/2020 18:16) ( [facility] 06/16/2020 18:40) Final results Test Result Flag Units (Reference) LACTIC ACID 2.1 MMOL/L (0.2 - 2.2)Lipase: (JENN: 06/16/2020 18:16) ( [facility] 06/16/2020 19:11) Final results Test Result Flag Units (Reference) LIPASE 13 U/L (13 - 60)Magnesium: (JENN: 06/16/2020 18:16) ( [facility] 06/16/2020 19:11) Final results Test Result Flag Units (Reference) MAGNESIUM 2.2 MG/DL (1.7 - 2.2)Acetaminophen Level: (JENN: 06/16/2020 18:16) ( [facility] 06/16/2020 19:11) Final results Test Result Flag Units (Reference) ACETAMINOPHEN 8.7 UG/ML (0.0 - 30.0)Salicylate Level: (JENN: 06/16/2020 18:16) ( [facility] 06/16/2020 19:25) Final results Test Result Flag Units (Reference) 5 Clinical Report - Physicians/Mid Levels [facility] Emergency Department [address] [place] [address] Phone #: ext- [phone] 06/16/2020 16:20 Patient: BRUNA LEE Sex: F : 1985 Age: 34y SALICYLATE <0.3 L mg/dL (2.0 - 20.0) PT/PTT: (JENN: 06/16/2020 18:16) ( [facility] 06/16/2020 19:26) Final results Test Result Flag Units (Reference) PROTIME 12.5 SECONDS (11.0 - 15.5) INR 0.89 L (0.93 - 1.23) PTT 39.8 H SECONDS (24.8 - 36.7) \\BLDo\\INR INTERPRETATION\\BLDx\\ Therapeutic range for Coumadin and related oral anticoagulants. - International Normalized Ratio (INR): 2.0 - 3.0 for Venous Thrombosis, Pulmonary Embolus, Tissue heart valves, Acute CA Atrial Fibrillation, Valvular heart disease and recurrent Systemic Embolism. -International Normalized Ratio (INR): 2.5 - 3.5 for Mechanical Prosthetic valve. Troponin-T: (JENN: 06/16/2020 18:16) ( [facility] 06/16/2020 19:25) Final results Test Result Flag Units (Reference) TROPONIN T <0.01 NG/ML (0.00 - 0.10) TROPONIN T0.1 ng/ml Recommended as the clinical threshold value forTroponin T. Urinalysis: (JENN: 06/16/2020 18:46) ( [facility] 06/16/2020 19:24) Final results Test Result [...] Venous Blood Gas: (JENN: 06/16/2020 18:16) ( [facility] 06/16/2020 18:40) Final results Test Result Flag [...] with grossly normal labs, normal activity on registered nurse cardiac, othervitals WNL throughout ED course, resting comfortably in ED exam rm bed throughout ED course, no 6 Clinical Report - Physicians/Mid Levels [facility] Emergency Department [address] [place] [address] Phone #: ext- [phone] 06/16/2020 16:20 Patient: BRUNA LEE Sex: F [...] appointment. 7 Clinical Report - Physicians/Mid Levels [facility] Emergency Department [address] [place] [address] Phone #: ext- [phone] 06/16/2020 16:20 Patient: [...] rce(s) Supporting Document(s) ID Date Data Source [id number] 06/16/2020 07:31:00 PM EDT [facility] Name Value Range Interpretation Code Description Data [facility] rce(s) Supporting Document(s) DRUG SCREEN URINE [facility] URINE DRUG SCREEN Amphetamine [Presence] in Urine by Screen method PRESUMP POS ZAYNAB L: NEGATIVE [facility] BARBITURATES NEGATIVE NORMAL: NEGATIVE [facility] BENZO NEGATIVE NORMAL: NEGATIVE [facility] COCAINE PRESUMP POS NORMAL: NEGATIVE A [facility] Tetrahydrocannabinol [Presence] in Urine NEGATIVE NORMAL: NEGATIVE [facility] OPIATES NEGATIVE NORMAL: NEGATIVE [facility] Phencyclidine [Presence] in Urine by Screen method NEGATIVE NOR MAL: NEGATIVE [facility] \\BLDo\\URINE DRUG SCR EEN INTERPRETATION\\BLDx\\ THE CUTOFFF LEVELS FOR DETECTION ARE FOLLOWS: AMPHETAMINES 1000 ng/ml BARBITUARATES 200 ng/ml BENZODIAZEPINES 100 ng/ml THC 50 ng/ml PHENCYCLIDINE 25 ng/ml OPIATES 300 ng/ml COCAINE 300 ng/ml ALL POSITIVES ARE CONSIDERED PRESUMPTIVE POSITIVE CONFIRMATION WILL BE PERFORMED AT PHYSICIAN REQUEST. ID Date Data Source [id number] 06/16/2020 07:24:00 PM EDT [facility] Name Value Range Interpretation Code Description Data [place] rce(s) Supporting Document(s) URINALYSIS [facility] URINALYSIS SOURCE Clean Catch [facility] COLOR Yellow NORMAL: Yellow [facility] ospital CLARITY Clear NORMAL: Clear [facility] spital Specific gravity of Urine by Test strip 1.010 1.001 - 1.030 [facility] pH 7 5 - 9 [facility] Glucose [Mass/volume] in Urine by Test strip NORM NORMAL: Negat [facility] Bilirubin.total [Presence] in Urine by Test strip NEG NORMAL: Negative [facility] Ketones [Presence] in Urine by Test strip NEG NORMAL: Negative [facility] Protein [Mass/volume] in Urine by Test strip NEG NORMAL: Negat [facility] Nitrite [Presence] in Urine by Test strip NEG NORMAL: Negative [facility] BLOOD NEG NORMAL: Negative [facility] Leukocyte esterase [Presence] in Urine by Test strip NEG ZAYNAB L: Negative [facility] Urobilinogen [Mass/volume] in Urine by Test strip NOR less kenna n 1.0 mg/dL [facility] MICROSCOPIC Not Indicate [facility] ID Date Data Source [id number] 06/16/2020 07:25:00 PM EDT [facility] Name Value Range Interpretation Code Description Data [place] rce(s) Supporting Document(s) Prothrombin time (PT) 12.5 SECONDS 11.0 - 15.5 [facility] INR in Platelet poor plasma by Coagulation assay 0.89 0.93 - 1. 23 L [facility] aPTT in Blood by Coagulation assay 39.8 SECONDS 24.8 - 36.7 H [facility] \\BLDo\\INR INTERPRETATION\\BLDx\\ Therapeutic range for Coumadin and related oral anticoagulants. - International Normalized Ratio (INR): 2.0 - 3.0 for Venous Thrombosis, Pulmonary Embolus, Tissue heart valves, Acute CA Atrial Fibrillation, Valvular heart disease and recurrent Systemic Embolism. - International Normalized Ratio (INR): 2.5 - 3.5 for Mechanical Prosthetic valve. ID Date Data Source [id number] 06/16/2020 07:25:00 PM EDT [facility] Name Value Range Interpretation Code Description Data [place] rce(s) Supporting Document(s) Choriogonadotropin.intact [Units/volume] in Serum or Plasma <0.5 mIU/ mL [facility] Interpr etation: Less than 5 mU/mL: Negative 6-10 mU/mL: Borderline (suggest repeat in 48 hours) >10: Positive Approx HCG range (mU/mL) Weeks post LMP 5.4-708 mU/mL 3-4 Weeks 217-98383 mU/mL 5-6 Weeks 4059-116806 mU/mL 7-8 Weeks 02894-857828 mU/mL 9-10 Weeks 59428-82254 mU/mL 12-14 Weeks 86020-63925 mU/mL 15-16 Weeks 8240- 54382 mU/mL 17-18 Weeks ID Date Data Source [id number] 06/16/2020 07:25:00 PM EDT [facility] Name Value Range Interpretation Code Description Data [place] rce(s) Supporting Document(s) TROPONIN T <0.01 NG/ML 0.00 - 0.10 [facility] ospital TROPONIN T0.1 ng/ml Recommended as the c linical threshold value forTroponin T. ID Date Data Source [id number] 06/16/2020 07:25:00 PM EDT [facility] Name Value Range Interpretation Code Description Data [place] rce(s) Supporting Document(s) SALICYLATE <0.3 mg/dL 2.0 - 20.0 L [facility] ID Date Data Source [id number] 06/16/2020 07:25:00 PM EDT [facility] Name Value Range Interpretation Code Description Data [place] rce(s) Supporting Document(s) COMPREHENSIVE METABOLIC PANEL [facility] COMPREHENSIVE METABOLIC PANEL Sodium [Moles/volume] in Serum or Plasma 139 mEq/L 134 - 153 [facility] Potassium [Moles/volume] in Serum or Plasma 4.3 mEq/L 3.6 - 5.0 [facility] Chloride [Moles/volume] in Serum or Plasma 100 mEq/L 98 - 107 [facility] Carbon dioxide, total [Moles/volume] in Serum or Plasma 26 MEQ/L 22 - 30 [facility] Glucose [Mass/volume] in Serum or Plasma 76 MG/DL 70 - 99 [facility] BUN 9 MG/DL 7 - 21 [facility] Creatinine [Mass/volume] in Serum or Plasma 0.5 MG/DL 0.7 - 1.5 L [facility] BUN/CREAT 18 8 - 27 [facility] Protein [Mass/volume] in Serum or Plasma 8.0 G/DL 6.3 - 8.2 [facility] Albumin [Mass/volume] in Serum or Plasma 5.0 G/DL 3.9 - 5.0 [facility] Globulin [Mass/volume] in Serum by calculation 3.0 GM/DL 2.4 - 3.2 [facility] A/G RATIO 1.7 0.8 - 2.0 [facility] Calcium [Mass/volume] in Serum or Plasma 10.6 MG/DL 8.4 - 10.2 H [facility] Bilirubin.total [Mass/volume] in Serum or Plasma <0.7 MG/DL 0.2 - 1.3 [facility] Alkaline phosphatase [Enzymatic activity/volume] in Serum or Plasma 86 U/L 38 - 126 [facility] Aspartate aminotransferase [Enzymatic activity/volume] in Serum or Plasma 30 U/L 5 - 40 [facility] Alanine aminotransferase [Enzymatic activity/volume] in Seru m or Plasma 25 U/L 7 - 56 [facility] Anion gap 3 in Serum or Plasma 13.0 mmol/L 8.0 - 16.0 [facility] AGE [address] [facility] NON-AA GFR >60 mL/min [facility] AFR AMER GFR >60 mL/min [facility] Male GFR In [...] >32 mL/min Normal ID Date Data Source [id number] 06/16/2020 07:11:00 PM EDT [facility] Name Value Range Interpretation Code Description Data [place] rce(s) Supporting Document(s) Acetaminophen [Presence] in Urine 8.7 UG/ML 0.0 - 30.0 [facility] ID Date Data Source [id number] 06/16/2020 07:11:00 PM EDT [facility] Name Value Range Interpretation Code Description Data [place] rce(s) Supporting Document(s) Magnesium [Mass/volume] in Serum or Plasma 2.2 MG/DL 1.7 - 2.2 [facility] ID Date Data Source [id number] 06/16/2020 07:11:00 PM T [facility] Name Value Range Interpretation Code Description Data [place] rce(s) Supporting Document(s) Lipase [Enzymatic activity/volume] in Serum or Plasma 13 U/L 13 - 60 [facility] ID Date Data Source [id number] 06/16/2020 07:11:00 PM T [facility] Name Value Range Interpretation Code Description Data [place] rce(s) Supporting Document(s) Ethanol [Moles/volume] in Blood <10.0 MG/DL [facility] ALCOHOL % 0.01 % 0.00 - 0.01 [facility] ital *FOR MEDICAL PURPOSES ONLY * ID Date Data Source [id number] 06/16/2020 07:06:00 PM EDT [facility] Name Value Range Interpretation Code Description Data [place] rce(s) Supporting Document(s) CBC W/AUTOMATED DIFF [facility] COMPLETE BLOOD COUNT Leukocytes [#/volume] in Blood by Automated count 6.8 10^3/uL 4.2 - 1 1.0 [facility] Erythrocytes [#/volume] in Blood by Automated count 4.84 10^6/uL 4. 20 - 5.40 [facility] Hemoglobin [Mass/volume] in Blood 14.3 g/dL 12.0 - 16.0 [facility] Hematocrit [Volume Fraction] of Blood by Automated count 43.3 % 3 7.0 - 47.0 [facility] Erythrocyte mean corpuscular volume [Entitic volume] by Auto mated count 89.5 fL 81.0 - 101 [facility] Erythrocyte mean corpuscular hemoglobin [Entitic mass] by Automated count 29.5 pg 27.0 - 34.0 [facility] Erythrocyte mean corpuscular hemoglobin concentration [Mass/volume] by Automated count 33.0 g/dL 31.0 - 36.0 [facility] Erythrocyte distribution width [Ratio] by Automated count 13.2 % 11.5 - 14.5 [facility] Platelets [#/volume] in Blood by Automated count 340 10^3/uL 150 - 45 0 [facility] Platelet mean volume [Entitic volume] in Blood by Automated count 9.9 fL 7.4 - 10.4 [facility] Neutrophils/100 leukocytes in Blood by Automated count 60.0 % 37. 0 - 80.0 [facility] Lymphocytes/100 leukocytes in Blood by Manual count 29.5 % 25.0 - 40.0 [facility] Monocytes/100 leukocytes in Blood by Automated count 7.4 % 3.0 - 8.0 [facility] Eosinophils/100 leukocytes in Blood by Automated count 2.2 % 0.0 - 7.0 [facility] Basophils/100 leukocytes in Blood by Automated count 0.6 % 0.0 - 2.5 [facility] %IG 0.3 % 0.0 - 0.0 H [facility] %NRBC 0.0 % 0.0 - 0.0 [facility] Neutrophils [#/volume] in Blood by Automated count 4.05 10^3/uL 2.00 - 6.90 [facility] Lymphocytes [#/volume] in Blood by Automated count 1.99 10^3/uL 0.60 - 3.40 [facility] Monocytes [#/volume] in Blood by Automated count 0.50 10^3/uL 0.00 - 0.90 [facility] Eosinophils [#/volume] in Blood by Automated count 0.15 10^3/uL 0.00 - 0.70 [facility] Basophils [#/volume] in Blood by Automated count 0.04 10^3/uL 0.00 - 0.20 [facility] #IG 0.02 10^3/uL 0.00 - 0.10 [facility] #NRBC 0.00 10^3/uL 0.00 - 0.00 [facility] ospital MANUAL DIFF NOT INDICATED [facility] RBC MORPH NOT INDICATED [facility] spital ID Date Data Source [id number] 06/16/2020 06:40:00 PM EDT [facility] Name Value Range Interpretation Code Description Data [place] rce(s) Supporting Document(s) pH of Serum or Plasma 7.37 7.32 - 7.43 [facility] pCO2 V 46.9 mm/HG 38.0 - 51.0 [facility] pO2 V 55.8 mm/HG 30.0 - 55.0 H [facility] Bicarbonate [Moles/volume] in Venous blood 26.5 meq/L 22.0 - 29.0 [facility] TCO2 V 28.0 meq/L 22.0 - 29.0 [facility] Base excess in Blood by calculation 0.7 -2.0 - 2.0 [facility] O2 SAT V 87.7 % 40.0 - 85.0 H [facility] ID Date Data Source [id number] 06/16/2020 06:40:00 PM EDT [facility] Name Value Range Interpretation Code Description Data [place] rce(s) Supporting Document(s) Lactate [Moles/volume] in Serum or Plasma 2.1 MMOL/L 0.2 - 2.2 [facility] ID Date Data Source [id number] 06/02/2020 09:35:00 PM EDT [facility] Name Value Range Interpretation Code Description Data [place] rce(s) Supporting Document(s) SARS-CoV-2 (COVID 19) NEGATIVE - SARS-CoV-2 (COVID19) [facility] This lab was ordered by [facility] a nd reported by [facility]. ID Date Data Source [id number] 04/21/2020 05:41:00 PM EST [facility] Name Value Range Interpretation Code Description Data [place] rce(s) Supporting Document(s) SARS coronavirus 2 RNA [Presence] in Res piratory specimen by MARK with probe detection NEGATIVE [facility] This lab was ordered by [facility] a nd reported by [facility]. ID Date Data Source [id number] 04/10/2020 02:50:00 PM EST [facility] Name Value Range Interpretation Code Description Data [place] rce(s) Supporting Document(s) SARS coronavirus 2 RNA [Presence] in Res piratory specimen by MARK with probe detection POSITIVE [facility] This lab was ordered by [facility] a nd reported by [facility]. ID Date Data Source [id number] 04/09/2020 02:48:00 AM EST [facility] Name Value Range Interpretation Code Description Data [place] rce(s) Supporting Document(s) SARS COVID ANTIGEN POSITIVE [facility] This lab was ordered by [facility] a nd reported by [facility]. ID Date Data Source [id number] 04/09/2020 02:46:00 AM EST [facility] Name Value Range Interpretation Code Description Data [place] rce(s) Supporting Document(s) SARS COVID ANTIGEN POSITIVE [facility] This lab was ordered by [facility] a nd reported by [facility]. ID Date Data Source [id number] 03/04/2020 12:09:00 PM EST [facility] Name Value Range Interpretation Code Description Data [place] rce(s) Supporting Document(s) FAZAL DIRECT Negative Negative [facility] Performed at: RN - [facility] [place] [id number] Director: Elsa Garcia MD, Phone: [phone] ID Date Data Source [id number] 03/04/2020 12:05:00 PM EST [facility] Name Value Range Interpretation Code Description Data [place] rce(s) Supporting Document(s) FAZAL Direct Negative Negative [facility] ID Date Data Source [id number] 03/03/2020 08:50:00 AM EST [facility] ADD ON TEST Name Value Range Interpretation Code Description Data [place] rce(s) Supporting Document(s) RHEUMATOID FACTOR SCREEN NEGATIVE NEGATIVE [facility] ID Date Data Source [id number] 03/03/2020 08:37:00 AM EST [facility] ADD ON TEST Name Value Range Interpretation Code Description Data [place] rce(s) Supporting Document(s) FREE T4 1.0 ng/dL 0.76-1.46 [facility] ID Date Data Source [id number] 03/03/2020 08:37:00 AM EST [facility] ADD ON TEST Name Value Range Interpretation Code Description Data [place] rce(s) Supporting Document(s) TSH 0.422 uIU/mL 0.36-3.74 [facility] ID Date Data Source [id number] 03/03/2020 08:11:00 AM EST [facility] ADD ON TEST Name Value Range Interpretation Code Description Data [place] rce(s) Supporting Document(s) C REACTIVE PROTEIN 15.6 mg/L 0.0-3.0 [facility] Date Data Source [id number] 03/03/2020 08:11:00 AM EST [facility] ADD ON TEST Name Value Range Interpretation Code Description Data [place] rce(s) Supporting Document(s) GLUCOSE 85 mg/dL 74-106 [facility] BLOOD UREA NITROGEN 11 mg/dL 7-18 [facility] ital CREATININE 0.88 mg/dL 0.6-1.0 [facility] SODIUM 135 mmol/L 136-145 L [facility] POTASSIUM 4.1 mmol/L 3.5-5.1 [facility] CHLORIDE 99 mmol/L 98-107 [facility] CO2 26 mmol/L 21-32 [facility] CALCIUM 8.8 mg/dL 8.5-10.1 [facility] ANION GAP 10.0 mmol/L 5-12 [facility] GLOMERULAR FILTRATION RATE 74 mL/min [facility] GFR IS CALCULATED IN mL/min/1.73m2 ZAYNAB L FUNCTION: >90MILDLY DECREASED: 60-89MILDY TO MODERATELY DECREASED: 45-59 MODERATELY TO SEVERELY DECREASED: 30-44SEVERELY DECREASED: 15-29RENAL FAILURE: <15 AST 32 U/L 15-37 [facility] ALT 32 U/L 12-78 [facility] ALKALINE PHOSPHATASE 65 U/L 46-116 [facility] pital TOTAL BILIRUBIN 0.2 mg/dL 0.2-1.0 [facility] TOTAL PROTEIN 6.9 g/dl 6.4-8.2 [facility] ALBUMIN 3.9 gm/dL 3.4-5.0 [facility] ID Date Data Source [id number] 03/01/2020 05:46:00 PM EST [facility] Name Value Range Interpretation Code Description Data [place] rce(s) Supporting Document(s) CHOLESTEROL 193 mg/dL 0-200 [facility] TRIGLYCERIDES 86 mg/dL 0-150 [facility] LDL CHOLESTEROL 111 mg/dL 0-100 H [facility] HDL CHOLESTEROL 65 mg/dL 40-60 H [facility] CHOL/HDL RATIO 3.0 0.0-5.0 [facility] ID Date Data Source [id number] 02/29/2020 10:40:00 AM EST [facility] Name Value Range Interpretation Code Description Data [place] rce(s) Supporting Document(s) SARS coronavirus 2 RNA [facility] This lab was ordered by [facility] and reported by [facility]. ID Date Data Source [id number] 12/10/2019 11:15:00 AM EDT [address] [id number] NAME: BRUNA LEE#: [id number] PHYSICIAN: PRERNA RIOS MD ADM. DATE: 12/05/19ACCOUNT #: [id number] DISCH. DATE:DISCHARGE SUMMARYIDENTIFICATION: A 34-year-old female with schizoaffective disorder,polysubstance dependence.CHIEF COMPLAINT: "I don't know why I am here."REASON FOR ADMISSION: Post- overdose.HISTORY OF PRESENT ILLNESS: The patient was interviewed in ICU after sheoverdosed. The patient was seen in [facility] for a regularconsultation, she could not answer [...] [place] last time in our service with [...] ABUSE: None.SOCIAL HISTORY: The patient is from [place], did not finish high school.She was in [...] The patient was discharged with the medications Cuyahq19 mg p.o. daily, Neurontin 600 mg p.o. [...] be enrolled in outpatient chemical dependence in [place].MENTAL STATUS EXAMINATION: The patient is pleasant, cooperative. [...] of substance.Date Dictated: 12/10/2019 09:34:34Date Transcribed: 12/10/2019 10:15:05JV/PUSDanielb #: [id number]: 12/10/19 0934 Electronically SignedTRANS:12/10/19 1115 PRERNA RIOS MDTRANS BY:IATDATE SIGNED:12/10/19REPORT COPY TO: Name Value Range Interpretation Code Description Data [place] rce(s) Supporting Document(s) ID Date Data Source [id number] 12/10/2019 06:43:00 AM EDT [place], [place] [address]PATIENT NAME: BRUNA LEE#: [id number] PHYSICIAN: PRERNA RIOS, [facility] #: [id number] ADM. DATE: 12/05/19PATIENT : 89 DISCH. DATE: [...] follow-upappointmentDischarge InformationDISCHARGE INFORMATION* Thank you for choosing [facility] and allowing us toserve you* Our Goal is to provide the highest quality of care.* This discharge information is to help you better understand your diagnosisand medication* Avoid taking aitc-val-pjwphld medicines unless approved by your physician.* Take your medications as prescribed. DO NOT stop any medications unlessapproved first* Weigh yourself daily. Report any gain of 5 lbs in a week* 24 Hour Crisis HOTLINE available: Call Reachout at [phone]* Chem. Dependency: Walk in Clinics [facility] ([phone]) and [facility] ([phone]) anytime Sunday thru Sunday 8 to 10am. [facility] ([phone]) anytimeSunday thru Sunday 8 to 10am. [facility] ([phone]) Sunday or Sunday from 8to 10am (Bring $30 to [facility]) SMOKIN G CESSATION* Smoking is dangerous to your health. It delays the healing process, andworks against your medications. Not smoking will improve your health* Our hospital participates with the Opt-to-Quit program. You will be contactedafter discharge by the [facility] Smoker's Quitline for support with tobaccocessation. You have the option once contacted to refuse this service.* You can also go online to www.eShares. Free nicotine replacementsare available Attention* You should [...] rce(s) Supporting Document(s) ID Date Data Source [id number] 12/10/2019 02:15:00 AM EDT [address] [id number] NAME: BRUNA LEE Joe Orellana#: [id number] PHYSICIAN: PRERNA RIOS MD ADM. DATE: 12/05/19PROGRESS NOTE DATE: 12/09/19 RM.#: [id number] #: [id number] NOTEIDENTIFICATION: A 34-year-old female with mood disorder [...] Dictated: 12/09/2019 10:52:52Date Transcribed: 12/10/2019 01:15:28JV/Basia #: [id number]: 12/09/19 1052 Electronically SignedTRANS:12/10/19 0215 PRERNA IROS MDTRANS BY:ADE SIGNED:12/10/19REPORT COPY TO: Name Value Range Interpretation Code Description Data [place] rce(s) Supporting Document(s) ID Date Data Source [id number] 12/08/2019 11:58:00 AM EDT [facility] Name Value Range Interpretation Code Description Data [place] rce(s) Supporting Document(s) URINE COLOR Yellow [facility] UAPR Clear [facility] UGLU Negative NEGATIVE [facility] URINE BILIRUBIN Negative NEGATIVE [facility] UKET Negative NEGATIVE [facility] USG 1.015 1.010-1.025 [facility] UBLO Negative NEGATIVE [facility] UpH 8.0 5.0-8.0 [facility] UPRO Negative Negative [facility] UUB 0.2 mg/dL 0.2-1.0 [facility] UNIT Negative Negative [facility] ULEU Negative Negative N [facility] ID Date Data Source [id number] 12/09/2019 04:57:00 AM EDT [address] [id number] NAME: BRUNA LEE#: [id number] PHYSICIAN: PRERNA RIOS MD ADM. DATE: 12/05/19PROGRESS NOTE DATE: 12/08/19 .#: [id number] #: [id number] NOTEIDENTIFICATION: A 34-year-old female with mood disorder, [...] Dictated: 12/08/2019 10:30:51Date Transcribed: 12/09/2019 03:57:49JV/RAVJob #: [id number]: 12/08/19 1030 Electronically SignedTRANS:12/09/19 0457 PRERNA RIOS MDTRANS BY:IATDATE SIGNED:12/09/19REPORT COPY TO: Name Value Range Interpretation Code Description Data [place] rce(s) Supporting Document(s) ID Date Data Source [id number] 12/06/2019 11:02:00 PM EDT [place] [address] [id number] NAME: BRUNA LEE#: [id number] PHYSICIAN: PRERNA RIOS MD ADM. DATE: 12/05/19ACCOUNT #: [id number] .#: [id number] ASSESSMENTIDENTIFICATION: A 34-year-old female with schizoaffective disorder andpolysubstance dependence.CHIEF COMPLAINT: "I don't know why I am here."REASON FOR ADMISSION: Post-overdose.HISTORY OF PRESENT ILLNESS: According to the records and our interview, thepatient was brought to our service after being in ICU and the medical floorfor an overdose. The patient went to the outpatient clinic in [facility] and she passed out in consultation. [...] 2 weeks ago, that she was in [place] inpatient service for 5 days forthat.The patient [...] into detail.SOCIAL HISTORY: The patient is from [place]. Did not finish high school.She is in [...] Dictated: 12/06/2019 12:22:47Date Transcribed: 12/06/2019 22:02:14JV/GBJob #: [id number]: 12/06/19 1222 Electronically Signed TRANS:12/06/19 2302 PRERNA RIOS MDTRANS BY:ADE SIGNED:12/07/19REPORT COPY TO: Name Value Range Interpretation Code Description Data [place] rce(s) Supporting Document(s) ID Date Data Source [id number] 12/05/2019 02:12:00 AM EDT [facility] Name Value Range Interpretation Code Description Data [place] rce(s) Supporting Document(s) CKI 109 U/L 17-150 [facility] ID Date Data Source [id number] 12/05/2019 04:49:00 PM EDT [facility] [place], [place] [address]MENTAL HEALTH HISTORY AND PHYSICALPATIENT NAME: BRUNA LEE MR#: [id number] PHYSICIAN: PRERNA RIOS MDAUTHOR: Ximena MD, Diogenes MIJAREST#: [id number] DATE: 12/05/19 #: 3RDHistoryChief Complaint/Admit ReasonOverdose on [...] and [facility]Past Medical/Surgical HistoryPast Medical/Surgical HistoryMedical [...] rce(s) Supporting Document(s) ID Date Data Source [id number] 12/05/2019 09:48:00 AM EDT [facility] [address] [id number] SUMMARYPATIENT NAME: BRUNA LEE MR#: [id number] PHYSICIAN: BEHZAD SOTO MDAUTHOR: Diogenes Bueno MD DATE: 12/04/19 RM#: [id number] DATE: 12/05/19 : 89Summary of HospitalizationReason for AdmissionOverdose on xanax, gabapentin, bath saltsHospital Idijrf66 yo F who was admitted for an [...] and [facility].Diagnoses (Current Visit)Problem List1. Drug [...] taking the following medications:Gabapentin* (Neurontin*) 400 MG [id number] MILLIGRAM Orally DAILYContinue taking these medications:LEVETIRACETAM (LEVETIRACETA) 1,000 MG TABLET1,000 MILLIGRAM Orally TWICE DAILYQty = 60Amitriptyline HCl (Amitriptyline HCl) 100 MG [id number] MILLIGRAM Orally DAILYSUCRALFATE (Carafate*) 1 GM TABLET1 GM Orally TWICE DAILYcloniDINE* (CLONIDINE*) 0.1 MG TABLET0.1 MILLIGRAM Orally TWICE DAILYOmeprazole Magnesium (Prilosec Otc) 20 MG TABLET.DR20 MILLIGRAM Orally DAILYrispERIdone (RISPERDAL*) 0.5 MG TABLET2 MILLIGRAM Orally TWICE DAILYATOMOXETINE HCL (Strattera) 18 MG [id number] MILLIGRAM Orally DAILYBUPRENORPHINE HCL/NALOXONE HCL (Suboxone 8 MG-2 MG Sl Film) 1 EACH FILM1 MILLIGRAM SublinguallySUMATRIPTAN SUCCINATE (Imitrex*) 50 MG [id number] MILLIGRAM Orally DAILY NEEDED as needed for HeadacheOxcarbazepine (Trileptal) 150 MG [id number] MILLIGRAM Orally TWICE DAILYDischarge Activity: As tolerated, No liftingDischarge diet: RegularFollow-upFollow up with the mental health doctor [facility] spent by provider to complete discharge > 30 minutesDATE SIGNED: 12/05/19 Electronically SignedTIME SIGNED: 1912 DIOGENES BUENO MD Name Value Range Interpretation Code Description Data [place] rce(s) Supporting Document(s) ID Date Data Source [id number] 12/05/2019 09:46:00 AM EDT [facility] [place], [place] [id number] NAME: BRUNA LEE Joe Orellana#: [id number] PHYSICIAN: BEHZAD SOTO MDAOUNT #: [id number] ADM. DATE: 12/04/19PATIENT : 89 DISCH. DATE: [50}DISCHARGE SUMMARYMedical Discharge PlanNicotine Replacement TherapyPrescribed at discharge Rx not offered at DCReason not offered pt is going to UPersonal Care InstructionsDischarge Activity: As tolerated, No liftingDischarge diet: RegularProblem ListMedical ProblemsAcute respiratory failure (Acute)Drug abuse (Chronic)Drug overdose (Acute)SchizophreniaSeizure disorder (Chronic, 12/20/18)Follow Up CareFollow Up:Follow up with the mental health doctor [facility] ItemsUrgent/Important items that need to be addressed at primary care follow-upappointmentPLEASE AVOID GABAPENTIN/XANAX/BATH SALTS IN THE FUTUREDischarge InformationDISCHARGE INFORMATION* Thank you for choosing [facility] and allowing us toserve you* [...] Hour Crisis HOTLINE available: Call Reachout at [phone] SMOKING CESSATION* Smoking is dangerous to your health. It delays the healing process, andworks against your medications. Not smoking will improve your health* Our hospital participates with the Opt-to-Quit program. You will be contactedafter discharge by the [facility] Smoker's Quitline for support with tobaccocessation. You have the option once contacted to refuse this service.* You can also go online to www.eShares. Free nicotine replacementsare available Attent ion* You [...] SignedTRANS:12/05/19945 DIOGENES BUENO MDTRANS BY:DATE SIGNED:12/05/19TIME SIGNED: 47REPORT COPY TO: Name Value Range Interpretation Code Description Data [place] rce(s) Supporting Document(s) ID Date Data Source [id number] 12/06/2019 02:37:00 AM EDT [facility] [address] [id number] NAME: BRUNA LEE#: [id number] PHYSICIAN: BEHZAD SOTO MD ADM. DATE: 12/04/19CONSULTING PHYSICIAN: PRERNA RIOS MD .#: ICUACCOUNT #: [id number] REPORTIDENTIFICATION: A 34-year-old female with mood disorder. This is a shortconsultation for a 34-year-old female who was unresponsive. The patient is inICU and at this point it is not clear the reason for an overdose.According to the records, the patient has a history of seizures, GERD, carpaltunnel, adjustment disorder, anxiety, depression, PTSD, and ADHD. Accordingto the records, the patient went to [facility] for an evaluation. Shehad an overdose. Was unconscious and at that point, according to the records,she stated that she injected bath salts in the morning, that is when shebecame unconscious and it is not clear who called [facility]. The patient has poor response [...] the lastthing she remembers is being at [place] so she is oriented to person, not [...] Dictated: 12/05/2019 09:24:19Date Transcribed: 12/06/2019 01:37:33JV/GBJob #: [id number]: 12/05/19 0924 Electronically SignedTRANS:12/06/19 0237 PRERNA RIOS MDTRANS BY:ADE SIGNED:12/09/19REPORT COPY TO: Name Value Range Interpretation Code Description Data [place] rce(s) Supporting Document(s) ID Date Data Source [id number] 12/05/2019 08:01:[address] [facility] Patient: COME, BRUNA Observation Repor t - Physicians/Mid Levels [facility].VisitID: [id number] [place] [address] [phone], FRegistrabeebe healthcare Date/Time: 12/04/2019 15:46 Weight:68.4 kg [...] E[place] 12/04/2019 20:43) Addenda for COMEBRUNA VisitID: [id number] Date: 12/04/2019 12/05/2019 7:59Spoke to [facility] nurse Deborah who wanted to come to [place] to see patient. Advised Deborah that the patient was transferred to [facility]. (Electronically signed by Allyssa Paredes R.N. 12/05/2019 7:59) Name Value Range Interpretation Code Description Data [place] rce(s) Supporting Document(s) ID Date Data Source [id number] 12/05/2019 07:34:00 AM EDT [facility] Name Value Range Interpretation Code Description Data [facility] rce(s) Supporting Document(s) GLU 76 mg/dL 70-110 [facility] Patients taking Sulfasalazine may have f alsely depressedGlucose levels. Patients taking Sulfapyridine may havefalsely elevated Glucose levels. Patients should be drawnfor Glucose before the initial administration of eitherdrug. BUN 7 mg/dL 7-23 [facility] CRE 0.500 mg/dL 0.500-1.300 [facility] GFR > 60 mL/min [facility] CHLORIDE 117 mmol/L 99-110 [facility] NA 146 mmol/L 136-147 [facility] POTASSIUM 3.5 mmol/L 3.5-5.1 [facility] TCO2 22 mmol/L 20-33 [facility] ANION GAP 10.5 10.0-20.0 [facility] CA 7.8 mg/dL 8.3-10.7 [facility] ALKALINE PHOS 59 U/L 45-117 [facility] TP 5.7 g/dL 6.0-7.8 [facility] ALB 2.6 g/dL 3.5-5.0 [facility] ESRD Dialysis patient Albumin reference range: 2.9-4.4 g/dL GL 3.1 g/dL 2.3-3.5 [facility] A/G 0.8 1.0-2.5 [facility] T. BILIRUBIN 0.3 mg/dL 0.1-1.1 [facility] [place] Total Bilirubin is n ot recommended forpatients undergoing treatment with eltrombopag (Promacta)due to the potential for falsely elevated results. ALTI 15 U/L 6-54 [facility] Patients taking Sulfasalazine and/or Sul fapyridine may havefalsely depressed ALT levels. Patients should be drawn forALT before the initial administration of either drug. AST 26 U/L 6-38 [facility] Patients taking Sulfasalazine and/or Sul fapyridine may havefalsely depressed AST levels. Patients should be drawn forAST before the initial administration of either drug. ID Date Data Source [id number] 12/05/2019 07:08:00 AM EDT [facility] Name Value Range Interpretation Code Description Data [place] rce(s) Supporting Document(s) WBC 5.38 x10E3/uL 4.0-10.5 [facility] RBC 3.55 x10E6/uL 4.20-5.40 [facility] Hemoglobin 10.6 g/dL 12.0-16.0 [facility] Hematocrit 32.9 % 37.0-47.0 [facility] MCV 92.7 fL 81.0-99.0 [facility] MCH 29.9 pg 27.0-31.0 [facility] MCHC 32.2 g/dL 32.7-35.6 [facility] RDW 13.1 % 11.5-14.0 [facility] Platelet count 251 x10E3/uL 150-450 [facility] ital MPV 10.8 fl 6.9-9.5 [facility] Neutrophils 43.4 % 34-64 [facility] Lymphocytes 44.4 % 25-45 [facility] Monocytes 8.6 % 1.7-10.6 [facility] Eosinophils 2.6 % 0.4-7.0 [facility] Basophils 0.6 % 0.1-2.0 [facility] Imm. Gran. 0.4 % 0.1-2.0 [facility] Abs. Neutro. 2.34 x10E3/uL 1.2-7.6 [facility] Abs. Lymph. 2.39 x10E3/uL 1.0-3.5 [facility] Abs. [place]. 0.46 x10E3/uL 0.1-1.0 [facility] Abs. Eosin. 0.14 x10E3/uL 0.1-0.7 [facility] Abs. Baso. 0.03 x10E3/uL 0.0-0.1 [facility] Abs. Imm. Gran. 0.02 x10E3/uL 0.0-0.1 [facility] ANRBC% 0 % 0 [facility] Hospital ID Date Data Source [id number] 12/05/2019 07:07:00 AM EDT [facility] Name Value Range Interpretation Code Description Data [place] rce(s) Supporting Document(s) TROPI < 0.015 ng/mL 0.000-0.079 [facility] ID Date Data Source [id number] 12/10/2019 06:07:00 AM EDT [facility] Performed at: [address] [id number] Director: Robyn Julio MD, Phone: [phone] Name Value Range Interpretation Code Description Data [place] rce(s) Supporting Document(s) LEVETIRACETAM <1.0 ug/mL 10.0-40.0 [facility] Verified by repeat analysisThis test was developed and its performance characteristicsdetermined by [facility]. It has not been cleared orapproved by the Food and Drug Administration. ID Date Data Source [id number] 12/05/2019 12:20:00 AM EDT [facility] Name Value Range Interpretation Code Description Data [place] rce(s) Supporting Document(s) LACTIC ACID CHUCHO 0.4 mmol/L 0.4-2.0 [facility] ID Date Data Source [id number] 12/05/2019 12:20:00 [facility] Name Value Range Interpretation Code Description Data [place] rce(s) Supporting Document(s) TROPI < 0.015 ng/mL 0.000-0.079 [facility] Data Source [id number] 12/05/2019 12:20:00 AM [facility] Name Value Range Interpretation Code Description Data [place] rce(s) Supporting Document(s) MAGNESIUM 2.1 mg/dL 1.6-2.6 [facility] ID Date Data Source [id number] 12/05/2019 12:20:00 AM EDT [facility] Name Value Range Interpretation Code Description Data [place] rce(s) Supporting Document(s) MARGUERITE 3.2 mg/dL 2.5-4.5 [facility] ID Date Data Source [id number] 12/05/2019 12:20:00 AM EDT [facility] Name Value Range Interpretation Code Description Data [place] rce(s) Supporting Document(s) GLU 104 mg/dL 70-110 [facility] Patients taking Sulfasalazine may have f alsely depressedGlucose levels. Patients taking Sulfapyridine may havefalsely elevated Glucose levels. Patients should be drawnfor Glucose before the initial administration of eitherdrug. BUN 7 mg/dL 7-23 [facility] CRE 0.504 mg/dL 0.500-1.300 [facility] GFR > 60 mL/min [facility] CHLORIDE 115 mmol/L 99-110 [facility] NA 145 mmol/L 136-147 [facility] POTASSIUM 3.6 mmol/L 3.5-5.1 [facility] TCO2 27 mmol/L 20-33 [facility] ANION GAP 6.6 10.0-20.0 [facility] CA 7.6 mg/dL 8.3-10.7 [facility] ALKALINE PHOS 63 U/L 45-117 [facility] TP 5.8 g/dL 6.0-7.8 [facility] ALB 2.8 g/dL 3.5-5.0 [facility] ESRD Dialysis patient Albumin reference range: 2.9-4.4 g/dL GL 3.0 g/dL 2.3-3.5 [facility] A/G 0.9 1.0-2.5 [facility] T. BILIRUBIN 0.2 mg/dL 0.1-1.1 [facility] [place] Total Bilirubin is n ot recommended forpatients undergoing treatment with eltrombopag (Promacta)due to the potential for falsely elevated results. ALTI 18 U/L 6-54 [facility] Patients taking Sulfasalazine and/or Sul fapyridine may havefalsely depressed ALT levels. Patients should be drawn forALT before the initial administration of either drug. AST 22 U/L 6-38 [facility] Patients taking Sulfasalazine and/or Sul fapyridine may havefalsely depressed AST levels. Patients should be drawn forAST before the initial administration of either drug. ID Date Data Source [id number] 12/05/2019 12:01:00 AM EDT [facility] Name Value Range Interpretation Code Description Data [place] rce(s) Supporting Document(s) WBC 7.56 x10E3/uL 4.0-10.5 [facility] RBC 3.54 x10E6/uL 4.20-5.40 [facility] Hemoglobin 10.5 g/dL 12.0-16.0 [facility] Hematocrit 32.9 % 37.0-47.0 [facility] MCV 92.9 fL 81.0-99.0 [facility] MCH 29.7 pg 27.0-31.0 [facility] MCHC 31.9 g/dL 32.7-35.6 [facility] RDW 13.1 % 11.5-14.0 [facility] Platelet count 301 x10E3/uL 150-450 [facility] ital MPV 9.8 fl 6.9-9.5 [facility] Neutrophils 57.9 % 34-64 [facility] Lymphocytes 31.7 % 25-45 [facility] Monocytes 7.8 % 1.7-10.6 [facility] Eosinophils 1.9 % 0.4-7.0 [facility] Basophils 0.4 % 0.1-2.0 [facility] Imm. Gran. 0.3 % 0.1-2.0 [facility] Abs. Neutro. 4.38 x10E3/uL 1.2-7.6 [facility] Abs. Lymph. 2.40 x10E3/uL 1.0-3.5 [facility] Abs. [place]. 0.59 x10E3/uL 0.1-1.0 [facility] Abs. Eosin. 0.14 x10E3/uL 0.1-0.7 [facility] Abs. Baso. 0.03 x10E3/uL 0.0-0.1 [facility] Abs. Imm. Gran. 0.02 x10E3/uL 0.0-0.1 [facility]ital ANRBC% 0 % 0 [facility] ID Date Data Source [id number] 12/04/2019 11:12:00 PM EDT [address] [id number] AND PHYSICALPATIENT NAME: BRUNA LEE MR#: [id number] PHYSICIAN: BEHZAD SOTO MDAUTHOR: Behzad Soto MD DATE: 12/04/19 RM#: ICUHISTORY & PHYSICAL DATE: 12/04/19 : 87EVALUATION TIME: 2330HistoryChief Complaint/Admit ReasonOverdoseHistory of Presenting [id number] female history of drug abuse, stress-induced seizures, GERD,bilateral carpal tunnel, adjustment disorder with mixed anxiety and depression,PTSD, ADHD who presents as a transfer from [facility] for evaluation.Patient presented to the wellness clinic for evaluation for overdose andunconsciousness upon arrival at the wellness center patient reported that shehad injected with bath salts this morning and soon after became unconscious EMSwas called and patient was brought to the ED at [facility] for evaluation.At the ED [facility] patient received verbal stimuli and then a [...] was negative for PE or dissection. [facility] also hypotensive into the 80s systolic received a liter bolus andblood pressure improved into the low 90s to 100s. Patient was transferred [facility] for further management. I evaluated patient inthe ICU patient remains obtunded unable to give any history. Nurse reportedpatient woke up few times and was able to answer simple questions. Patient hadreceived flumazenil and Narcan and Ativan at [facility] before arrival [facility].Past Medical/Surgical HistoryPast Medical/Surgical HistoryMedical ProblemsAcute respiratory [...] obtain as patient is obtundedExamVital SignsVital Signs-24 HRS10/233286Mnqn 98.2Pulse 62Resp 16B/P 91/52B/P MeanPulse Ox 98O2 DeliveryO2 Flow EsliOyF6Ezuofobv ExaminationGeneral Appearance no acute distress, ObtundedHead normocephalicENT [...] % (auto) (0 %) 0ToxicologyLevetiracetam PendingLabs from [facility] reviewed.ImagingCT head done at [facility].Impression:No acute cranial abnormality.CT pulmonary angiogram done at [facility].Impression:No evidence of pulmonary embolic disease.Cardiology/EKGEKG: Done at [facility].Sinus rhythm rate of 83 bpm. Very minimal (less than 1 mm )ST depression inlead II, V4 and V5.Assessment/PlanDiagnosis/Problem1. Drug overdoseStatus AcuteA&PPatient injected bath salts and also reported taking Xanax and unknown amountof gabapentin. Expressed suicidal ideations as documented at [facility].-Poison control contacted.-Monitor on telemetry.-IV fluids.-Check troponins.-Monitor electrolytes.-Supportive care.2. Seizure disorderStatus ChronicOnset Date 12/20/18A&PCheck Keppra level continue Keppra as necessary.CQM VTE HISTORYVTE HISTORYPrior VTE? NoDATE SIGNED: 12/05/19 Electronically SignedTIME SIGNED: 0708 BEHZAD SOTO MD Name Value Range Interpretation Code Description Data [place] rce(s) Supporting Document(s) ID Date Data Source [id number] 12/04/2019 11:26:00 PM [facility]T [facility] Name Value Range Interpretation Code Description Data [place] rce(s) Supporting Document(s) FGLU 80 mg/dL 70-110 [facility] ID Date Data Source [id number] 12/04/2019 09:28:00 PM EDT [facility] Patient: COME, BRUNA Observation Repor t - Physicians/Mid Levels [facility].VisitID: [id number] [place] [address] [phone], [facility] Date/Time: 12/04/2019 15:46 Weight:68.4 kg (E). [...] Name Value Range Interpretation Code Description Data [facility] Document(s) ID Date Data Source [id number] 12/04/2019 08:43:[address] [facility] AP CHEST DATE OF EXAMINATION: 12/04/2019 [...] rce(s) Supporting Document(s) ID Date Data Source [id number] 12/04/2019 07:09:[address] [facility] Name Value Range Interpretation Code Description Data [facility] rce(s) Supporting Document(s) SARS COV2 TRP [facility] This lab was ordered by [facility] and reported by [facility] Laboratory. ID Date Data Source [id number] 12/04/2019 08:26:[address] [facility] TSYSORDER [id number] Name Value Range Interpretation Code Description Data [facility] rce(s) Supporting Document(s) Adenovirus Not Detected Detected Not [facility] Coronavirus 229E Not Detected Detected Not [facility] Coronavirus HKU1 Not Detected Detected Not [facility] Coronavirus NL63 Not Detected Detected Not [facility] Coronavirus OC43 Not Detected Detected Not [facility] Sars Cov 2 Not Detected Detected Not [facility] Human Metapneumovirus Not Detected Detected Not [facility] Human Rhinovirus Not Detected Detected Not [facility] Influenza A Not Detected Detected [facility] Influenza B Not Detected Detected Not [facility] Parainfluenza Virus 1 Not Detected Detected Not [facility] Parainfluenza Virus 2 Not Detected Detected Not [facility] Parainfluenza Virus 3 Not Detected Detected Not [facility] Parainfluenza Virus 4 Not Detected Detected Not [facility] Respiratory Syncytial Virus Not Detected Detected Not [facility] Bordetella parapertus ([id number]) Not Detected Detected Not [facility] Bordetella pertussis (ptxP) Not Detected Detected Not [facility] Chlamydia pneumoniae Not Detected Detected Not [facility] Mycoplasma pneumoniae Not Detected Detected Not [facility] The Above results have been determined b y using the [employer] system.[employer] is an automated in vitro diagnostic system thatutilizes nested multiplex Polymerase Chain Reaction (PCR)and high-resolution melting analysis to detect and identifymultiple nucleic acid targets from clinical specimens. ID Date Data Source [id number] 12/04/2019 06:58:[address] [facility] CT Chest and CT Pulmonary Angiogram [...] Name Value Range Interpretation Code Description Data [facility] Supporting Document(s) ID Date Data Source [id number] 12/04/2019 06:56:00 PM EDT [facility] [...] Name Value Range Interpretation Code Description Data [facility] rce(s) Supporting Document(s) ID Date Data Source [id number] 12/04/2019 05:47:00 PM EDT [facility] TSYSORDER [id number] Name Value Range Interpretation Code Description Data [facility] Supporting Document(s) URINE AMPHETAMINES NEGATIVE <1000 ng/mL [facility] pital THC,URINE NEGATIVE <50 ng/mL [facility] URINE BARBITURATES NEGATIVE <300 ng/mL [facility] ital PCP,URINE NEGATIVE <25 ng/mL [facility] COCAINE, URINE NEGATIVE <300 ng/mL [facility] URINE,OPIATES NEGATIVE <300 ng/mL [facility] URINE,TCA POSITIVE <1000 ng/mL H [facility] URINE BENZODIAZEPINES NEGATIVE <300 ng/mL [facility] ospital THESE TESTS ARE PERFORMED USING AN IMMU NOASSAY FOR THEQUALITATIVE DETERMINATION OF THE PRESENCE OF THE MAJORMETABOLITES OF DRUGS OF ABUSE. THESE TESTS ARE ONLY ASCREENING AND NOT CONFIRMATORY. CLINICAL CONSIDERATION ANDPROFESSIONAL JUDGMENT MUST BE APPLIED TO ANY DRUG OF ABUSETEST RESULT. ID Date Data Source [id number] 12/04/2019 05:30:00 PM EDT [facility] TSYSORDER [id number] Name Value Range Interpretation Code Description Data [place] rce(s) Supporting Document(s) HCG URINE NEGATIVE NEGATIVE [facility] ID Date Data Source [id number] 12/04/2019 05:39:00 PM EDT [facility] ital TSYSORDER [id number] Name Value Range Interpretation Code Description Data [place] rce(s) Supporting Document(s) URINE COLOR. LIGHT YELLOW [facility] URINE APPEARANCE CLEAR [facility] l URINE GLUCOSE (UA) NEGATIVE mg/dL NEGATIVE [facility] URINE BILIRUBIN NEGATIVE NEGATIVE [facility] URINE KETONE NEGATIVE mg/dL NEGATIVE [facility] SPECIFIC GRAVITY,URINE 1.010 1.001-1.035 [facility] URINE BLOOD NEGATIVE NEGATIVE [facility] PH,URINE 7.5 5.0-9.0 [facility] URINE PROTEIN NEGATIVE mg/dL NEGATIVE [facility] UR[facility] UROBILINOGEN NORMAL(0.2-1) mg/dL 0-1 [facility] URINE NITRATE NEGATIVE NEGATIVE [facility] URINE LEUKOCYTE ESTERASE NEGATIVE NEGATIVE [facility] ID Date Data Source [id number] 12/04/2019 06:09:00 PM EDT [facility] l Name Value Range Interpretation Code Description Data [place] rce(s) Supporting Document(s) CKMB 1.8 ng/ml 0.0-3.6 [facility] ID Date Data Source [id number] 12/04/2019 04:47:00 PM EDT [facility] l Name Value Range Interpretation Code Description Data [place] rce(s) Supporting Document(s) SALICYLATE 3.5 mg/dL 2.8-20.0 [facility] ID Date Data Source [id number] 12/04/2019 04:47:00 PM EDT [facility] Name Value Range Interpretation Code Description Data [place] rce(s) Supporting Document(s) ETHYL ALCOHOL 0.00 % 0-0.01 [facility] ID Date Data Source [id number] 12/04/2019 04:47:00 PM EDT [facility] l Name Value Range Interpretation Code Description Data [place] rce(s) Supporting Document(s) ACETAMINOPHEN LEVEL < 2.0 mcg/mL 10-30 L [facility] ospital ID Date Data Source [id number] 12/04/2019 04:47:00 PM EDT [facility] l Name Value Range Interpretation Code Description Data [place] rce(s) Supporting Document(s) GLUCOSE 81 mg/dL 74-106 [facility] BLOOD UREA NITROGEN 10 mg/dL 7-18 [facility] ital CREATININE 0.7 mg/dL 0.6-1.0 [facility] SODIUM 139 mmol/L 136-145 [facility] POTASSIUM 4.3 mmol/L 3.5-5.1 [facility] CHLORIDE 102 mmol/L 98-107 [facility] CO2 33 mmol/L 21-32 H [facility] CALCIUM 9.2 mg/dL 8.5-10.1 [facility] ANION GAP 4.0 mmol/L 5-12 L [facility] GLOMERULAR FILTRATION RATE >90 mL/min [facility] GFR IS CALCULATED IN mL/min/1.73m2 ZAYNAB L FUNCTION: >90MILDLY DECREASED: 60-89MILDY TO MODERATELY DECREASED: 45-59 MODERATELY TO SEVERELY DECREASED: 30-44SEVERELY DECREASED: 15-29RENAL FAILURE: <15 AST 40 U/L 15-37 H [facility] ALT 27 U/L 12-78 [facility] ALKALINE PHOSPHATASE 68 U/L 46-116 [facility] pital TOTAL BILIRUBIN 0.3 mg/dL 0.2-1.0 [facility] TOTAL PROTEIN 7.4 g/dl 6.4-8.2 [facility] ALBUMIN 3.9 gm/dL 3.4-5.0 [facility] ID Date Data Source [id number] 12/04/2019 04:46:00 PM EDT [facility] l TSYSORDER [id number] Name Value Range Interpretation Code Description Data [place] rce(s) Supporting Document(s) AMMONIA 39 umol/L 11-32 H [facility] ID Date Data Source [id number] 12/04/2019 04:19:00 PM EDT [facility] TSYSORDER [id number] Name Value Range Interpretation Code Description Data [place] rce(s) Supporting Document(s) WHITE BLOOD COUNT 9.8 K/mm3 4.0-10.0 [facility]LO[facility] COUNT 4.11 M/mm3 4.00-5.50 [facility] HEMOGLOBIN 12.3 gm/dL 12.0-16.0 [facility] HEMATOCRIT 37.9 % 36.0-48.8 [facility] MEAN CELL VOLUME 92.2 fl 80-96 [facility] MEAN CORPUSCULAR HEMOGLOBIN 29.9 pg 27.0-31.0 [facility] MEAN CORPUSCULAR HGB CONC 32.5 g/dl 32.0-36.0 [facility] RED CELL DISTRIBUTION WIDTH 13.0 % 10.0-14.5 [facility] PLATELET COUNT 368 K/mm3 172-450 [facility] MEAN PLATELET VOLUME 9.5 fl 9.0-13.0 [facility] pital GRAN % 71.0 % 50-80.0 [facility] IG% 0.2 % 0.0-0.2 [facility] LYMPH % 20.5 % 25.0-50.0 L [facility] MONO % 7.1 % 2.0-10.0 [facility] EOS % 1.0 % 0-5.0 [facility] BASO % 0.2 % 0.0-2.0 [facility] GRAN # 7.0 K/mm3 2.0-8.00 [facility] IG# 0.0 K/mm3 0.0-0.2 [facility] LYMPH # 2.0 K/mm3 1.0-5.0 [facility] MONO # 0.7 K/mm3 0.10-1.20 [facility] EOS # 0.1 K/mm3 0.0-0.5 [facility] BASO # 0.0 K/mm3 0.0-0.2 [facility] ID Date Data Source [id number] 12/11/2019 08:09:00 PM EDT [facility] Name Value Range Interpretation Code Description Data [place] rce(s) Supporting Document(s) LEVETIRACETAM, S <1.0 ug/mL 10.0-40.0 [facility] Verified by repeat analysisThis test was developed and its performance characteristicsdetermined by [facility]. It has not been cleared orapproved by the Food and Drug Administration.Performed at: [facility] Lab[address] [id number] Director: Robyn Julio MD, Phone: [phone] ID Date Data Source [id number] 12/11/2019 08:05:00 PM EDT [facility] Name Value Range Interpretation Code Description Data [place] rce(s) Supporting Document(s) Levetiracetam, S 10.0-40.0 Below low normal [facility] Verified by repeat analysisThis test was developed and its performance characteristicsdetermined by [facility]. It has not been cleared or approvedby the Food and Drug Administration. ID Date Data Source [id number] 12/04/2019 05:04:00 PM EDT [facility] l TSYSORDER [id number] Name Value Range Interpretation Code Description Data [place] rce(s) Supporting Document(s) DDIMER 0.74 mg/LFEU 0.19-0.60 H [facility] ID Date Data Source [id number] 12/04/2019 12:00:[address] [facility] Name Value Range Interpretation Code Description Data [place] rce(s) Supporting Document(s) 2019 Novel Coronavirus RNA [facility] This lab was ordered by [facility] L aboratory and reported by [facility] Laboratory. Procedure Social History Code Duration Value Status Description Data Source(s ) 11/05/2020 12:00:00 AM EDT Heavy cigarette smoker (20- 39 cigs/day) completed Heavy cigarette smoker (20-39 cigs/day) [facility] ([facility]) Smoking 11/05/2020 12:00:00 AM EDT Heavy tobacco smoker comple keven Heavy tobacco smoker [facility] ([facility]) Alcohol intake 09/24/2020 12:00:00 AM EDT Ex-drinker (finding) comp leted Ex- drinker (finding) [facility] Tobacco use and exposure 09/24/2020 12:00:00 AM EDT Never used co mpleted Never used [facility] Cigarettes smoked current (pack per day) - Reported 09/25/19 12:00:00 AM EDT UNK completed [facility] Smoking 09/24/2020 12:00:00 AM EDT Smoker, current status unkn own completed Smoker, current status unknown [facility] Alcohol intake 08/06/2020 12:00:00 AM EDT Ex-drinker (finding) comp leted Ex- drinker (finding) [facility] Smoking 07/22/2020 12:00:00 AM EDT Current Smoker completed Curre nt Smoker eCW1 ([facility]) Smoking 07/22/2020 12:00:00 AM EDT Current Smoker completed Curre nt Smoker eCW1 ([facility]) Smoking 07/22/2020 12:00:00 AM EDT Current Smoker completed Curre nt Smoker eCW1 ([facility]) Smoking 06/14/2020 12:00:00 AM EDT Current Smoker completed Curre nt Smoker eCW1 ([facility]) Smoking 06/14/2020 12:00:00 AM EDT Current Smoker completed Curre nt Smoker eCW1 ([facility]) Smoking 06/14/2020 12:00:00 AM EDT Current Smoker completed Curre nt Smoker eCW1 ([facility]) Smoking 06/14/2020 12:00:00 AM EDT Current Smoker completed Curre nt Smoker eCW1 ([facility]) Smoking 03/30/2020 12:00:00 AM EST Current Smoker completed Curre nt Smoker eCW1 ([facility]) Smoking 03/30/2020 12:00:00 AM EST Current Smoker completed Curre nt Smoker eCW1 ([facility]) Smoking 03/30/2020 12:00:00 AM EST Current Smoker completed Curre nt Smoker eCW1 ([facility]) Smoking 03/30/2020 12:00:00 AM EST Current Smoker completed Curre nt Smoker eCW1 ([facility]) Smoking 03/30/2020 12:00:00 AM EST Current Smoker completed Curre nt Smoker eCW1 ([facility]) Smoking 03/30/2020 12:00:00 AM EST Current Smoker completed Curre nt Smoker eCW1 ([facility]) Smoking 03/30/2020 12:00:00 AM EST Current Smoker completed Curre nt Smoker eCW1 ([facility]) Smoking 03/30/2020 12:00:00 AM EST Current Smoker completed Curre nt Smoker eCW1 ([facility]) Smoking 03/30/2020 12:00:00 AM EST Current Smoker completed Curre nt Smoker eCW1 ([facility]) Smoking 03/30/2020 12:00:00 AM EST Current Smoker completed Curre nt Smoker eCW1 ([facility]) Smoking 03/30/2020 12:00:00 AM EST Current Smoker completed Curre nt Smoker eCW1 ([facility]) Smoking 03/30/2020 12:00:00 AM EST Current Smoker completed Curre nt Smoker eCW1 ([facility]) Smoking 03/30/2020 12:00:00 AM EST Current Smoker completed Curre nt Smoker eCW1 ([facility]) Smoking 03/30/2020 12:00:00 AM EST Current Smoker completed Curre nt Smoker eCW1 ([facility]) Smoking 03/30/2020 12:00:00 AM EST Current Smoker completed Curre nt Smoker eCW1 ([facility]) Smoking 03/30/2020 12:00:00 AM EST Current Smoker completed Curre nt Smoker eCW1 ([facility]) Smoking 03/30/2020 12:00:00 AM EST Current Smoker completed Curre nt Smoker eCW1 ([facility]) Smoking 03/01/2020 12:00:00 AM EST Current Smoker completed Curre nt Smoker eCW1 ([facility]) Smoking 03/01/2020 12:00:00 AM EST Current Smoker completed Curre nt Smoker eCW1 ([facility]) Smoking 03/01/2020 12:00:00 AM EST Current Smoker completed Curre nt Smoker eCW1 ([facility]) Smoking 02/18/2020 12:00:00 AM EST Current Smoker completed Curre nt Smoker eCW1 ([facility]) Smoking 12/24/2019 12:00:00 AM EDT Current Smoker completed Curre nt Smoker eCW1 ([facility]) Smoking 12/24/2019 12:00:00 AM EDT Current Smoker completed Curre nt Smoker eCW1 ([facility]) Smoking 12/24/2019 12:00:00 AM EDT Current Smoker completed Curre nt Smoker eCW1 ([facility]) Smoking 12/24/2019 12:00:00 AM EDT Current Smoker completed Curre nt Smoker eCW1 ([facility]) Smoking 12/24/2019 12:00:00 AM EDT Current Smoker completed Curre nt Smoker eCW1 ([facility]) Smoking 12/24/2019 12:00:00 AM EDT Current Smoker completed Curre nt Smoker eCW1 ([facility]) Smoking 12/24/2019 12:00:00 AM EDT Current Smoker completed Curre nt Smoker eCW1 ([facility]) Vital Signs ID Date Data Source UNK Name Value Range Interpretation Code Description Data Source(s) Diastolic blood pressure 56 mm[Hg] 56 mm[Hg] MATIAS ([facility]) Body height 61 [in_i] 61 [in_i] MATIAS ([facility]) Body mass index (BMI) [Ratio] 31.5 kg/m2 31.5 k g/m2 MATIAS ([facility]) Systolic blood pressure 83 mm[Hg] 83 mm[Hg] A THENA ([facility]) Body weight 2664 [oz_av] 2664 [oz_av] MATIAS ([facility]) Body height 152.40 cm 152.40 cm [facility] ([facility] Body weight 74.026 kg 74.026 kg [facility] ([facility]) Systolic blood pressure 116 mm[Hg] 116 mm[Hg] N extGen ([facility]) Diastolic blood pressure 76 mm[Hg] 76 mm[Hg] [facility] ([facility]) Body mass index (BMI) [Ratio] 31.87 kg/m2 Overweight 31.87 kg/m2 [facility] ([facility]) Body height 60.0 [in_i] 60.0 [in_i] eCW1 ([facility]) Body weight 183.0 [lb_av] 183.0 [lb_av] eCW1 ([facility]) Body mass index (BMI) [Ratio] 35.74 kg/m2 35.74 kg/m2 eCW1 ([facility]) Heart rate 119 /min 119 /min eCW1 ([facility]) Respiratory rate 18 /min 18 /min eCW1 ([facility]) Oxygen saturation in Arterial blood by Pulse oximetry 98 % 98 % eCW1 ([facility]) Body height 60 [in_i] 60 [in_i] eCW1 ([facility]) Body weight 180.6 [lb_av] 180.6 [lb_av] eCW1 ([facility]) Body mass index (BMI) [Ratio] 35.27 kg/m2 35.27 kg/m2 eCW1 ([facility]) Heart rate 93 /min 93 /min eCW1 ([facility]) Respiratory rate 18 /min 18 /min eCW1 ([facility]) Oxygen saturation in Arterial blood by Pulse oximetry 99 % 99 % eCW1 ([facility]) Body height 60 [in_i] 60 [in_i] eCW1 ([facility]) Body weight 186.8 [lb_av] 186.8 [lb_av] eCW1 ([facility]) Body mass index (BMI) [Ratio] 36.48 kg/m2 36.48 kg/m2 eCW1 ([facility]) Heart rate 89 /min 89 /min eCW1 ([facility]) Respiratory rate 18 /min 18 /min eCW1 ([facility]) Oxygen saturation in Arterial blood by Pulse oximetry 97 % 97 % eCW1 ([facility]) Body height 60 [in_i] 60 [in_i] eCW1 ([facility]) Body weight 164.4 [lb_av] 164.4 [lb_av] eCW1 ([facility]) Body mass index (BMI) [Ratio] 32.10 kg/m2 32.10 kg/m2 eCW1 ([facility]) Body temperature 98.0 [degF] 98.0 [degF] eCW1 ( [facility]) Heart rate 86 /min 86 /min eCW1 ([facility]) Respiratory rate 18 /min 18 /min eCW1 ([facility]) Oxygen saturation in Arterial blood by Pulse oximetry 98 % 98 % eCW1 ([facility]) ID Date Data Source [id number] 10/18/2020 09:45:12 AM EDT [facility] Name Value Range Interpretation Code Description Data Source(s) TRANSFER FROM [facility] ID Date Data Source [id number] 08/27/2020 04:17:02 PM EDT [facility] Name Value Range Interpretation Code Description Data Source(s) TRANSFER FROM [facility] ID Date Data Source [id number] 08/17/2020 03:58:41 PM EDT [facility] Name Value Range Interpretation Code Description Data Source(s) TRANSFER FROM [facility] ID Date Data Source [id number] 12/26/2019 01:56:00 PM EDT [facility] Name Value Range Interpretation Code Description Data Source(s) WEIGHT 72.3 kilos 72.3 kilos [facility] HEIGHT 152.4 centimeters 152.4 centimeters [facility] WEIGHT 75 kilos 75 kilos [facility] HEIGHT 152.4 centimeters 152.4 centimeters [facility] ID Date Data Source [id number] 12/10/2019 06:07:00 AM EDT [facility] Name Value Range Interpretation Code Description Data Source(s) WEIGHT 68 kilos 68 kilos [facility] HEIGHT 152.4 centimeters 152.4 centimeters [facility] WEIGHT 68.4 kilos 68.4 kilos [facility] HEIGHT 152.4 centimeters 152.4 centimeters [facility] ID Date Data Source [id number] 12/08/2019 01:43:00 PM EDT [facility] Name Value Range Interpretation Code Description Data Source(s) WEIGHT 75 kilos 75 kilos [facility] HEIGHT 152.4 centimeters 152.4 centimeters [facility] ID Date Data Source [id number] 12/08/2019 01:43:00 PM [facility] Name Value Range Interpretation Code Description Data Source(s) WEIGHT 74 kilos 74 kilos [facility] HEIGHT 160.02 centimeters 160.02 centimeter [facility] Patient Treatment Plan of Care Planned Activity Planned Date Details Description Data Source (s) Citalopram 10 MG Oral Tablet 09/30/2020 12:00:00 AM [facility] Levetiracetam 1000 MG Oral Tablet 09/29/2020 12:00:00 AM [facility] gabapentin 600 MG Oral Tablet 09/29/2020 12:00:00 AM [facility] Chlorpromazine hydrochloride 100 MG Oral Tablet 09/29/2020 12:00:00 AM [facility] Magnesium Hydroxide 80 MG/ML Oral Suspension 09/13/2020 08:49:03 AM [facility] sennosides, FDC 8.6 MG Oral Tablet 09/13/2020 08:49:03 AM [facility] Docusate Sodium 100 MG Oral Capsule 09/13/2020 08:49:03 AM [facility] Bisacodyl 10 MG Rectal Suppository 09/13/2020 08:49:03 AM [facility] Buprenorphine 8 MG / Naloxone 2 MG Oral Strip 08/18/2020 12:00:00 A M [facility] Diphenhydramine Hydrochloride 25 MG Oral Capsule 08/17/2020 10:11:0 1 AM [facility] Asenapine 10 MG Sublingual Tablet 08/17/2020 12:00:00 AM [facility] benztropine mesylate 1 MG Oral Tablet 08/17/2020 12:00:00 AM [facility] gabapentin 300 MG Oral Capsule 08/17/2020 12:00:00 AM [facility] Diphenhydramine Hydrochloride 25 MG Oral Capsule 08/17/2020 12:00:0 0 AM [facility] Buprenorphine 8 MG / Naloxone 2 MG Sublingual Tablet 12:00:00 AM [facility] Clonidine Hydrochloride 0.2 MG Oral Tablet 08/17/2020 12:00:00 AM [facility] Aluminum Hydroxide 40 MG/ML / Magnesium Hydroxide 40 MG/ML / Simethicone 4 MG/ML Oral Suspension 08/06/2020 07:39:14 PM EDT [facility] Magnesium Hydroxide 80 MG/ML Oral Suspension 08/06/2020 07:39:11 PM EDT [facility] gabapentin 600 MG Oral Tablet 07/17/2020 12:00:00 AM EDT [facility] Doxepin Hydrochloride 25 MG Oral Capsule 03/09/2020 12:00:00 AM EST eCW1 ([facility]) Doxepin Hydrochloride 25 MG Oral Capsule 03/09/2020 12:00:00 AM EST eCW1 ([facility]) Doxepin Hydrochloride 25 MG Oral Capsule 03/09/2020 12:00:00 AM EST eCW1 ([facility]) Clonidine Hydrochloride 0.2 MG Oral Tablet 12/24/2019 12:00:00 AM E DT eCW1 ([facility]) Clonidine Hydrochloride 0.2 MG Oral Tablet 12/24/2019 12:00:00 AM E DT eCW1 ([facility]) Clonidine Hydrochloride 0.2 MG Oral Tablet 12/24/2019 12:00:00 AM E DT eCW1 ([facility]) Clonidine Hydrochloride 0.2 MG Oral Tablet 12/24/2019 12:00:00 AM E DT eCW1 ([facility]) Clonidine Hydrochloride 0.2 MG Oral Tablet 12/24/2019 12:00:00 AM E DT eCW1 ([facility]) Clonidine Hydrochloride 0.2 MG Oral Tablet 12/24/2019 12:00:00 AM E DT eCW1 ([facility]) Clonidine Hydrochloride 0.2 MG Oral Tablet 12/24/2019 12:00:00 AM E DT eCW1 ([facility]) Sumatriptan 25 MG Oral Tablet MATIAS ([facility]) Buprenorphine 12 MG / Naloxone 3 MG Oral Strip [Suboxone] MATIAS ([facility]) benztropine mesylate 1 MG Oral Tablet [facility] Clonidine Hydrochloride 0.2 MG Oral Tablet [facility] Levetiracetam 1000 MG Oral Tablet [facility] Lurasidone Hydrochloride 40 MG Oral Tablet [facility] Trazodone Hydrochloride 50 MG Oral Tablet [facility] gabapentin 300 MG Oral Capsule [facility] 24 HR Nicotine 0.875 MG/HR Transdermal Patch [facility]
--- OUTSIDE RECORDS SUMMARY | 2021-01-19 13:18 | CCD ---
Author Author [facility] Organization [facility] Address Unknown Phone Unavailable Care Team Providers Care Corn Chip Maker Name Role Phone Yessi Ritchie MD Unavailable [...] Unavailable Yessi Ritchie MD Unavailable Unavailable Yessi Ritcihe MD Unavailable Unavailable Yessi Ritchie MD Unavailable [...] Unavailable MARICHAO Gonzalez MD Unavailable Unavailable Colten HOOD MD [...] Chato OTERO MD Unavailable Unavailable DESJARLAIS, KAROLYN LIFE SKILLS SPECIALIST Unavailable Unavailable DESJARLAIS, KAROLYN LIFE SKILLS SPECIALIST Unavailable Unavailable DESJARLAIS, KAROLYN LIFE SKILLS SPECIALIST Unavailable Unavailable DESJARLAIS, KAROLYN LIFE SKILLS SPECIALIST Unavailable Unavailable DESJARLAIS, KAROLYN LIFE SKILLS SPECIALIST Unavailable Unavailable DESJARLAIS, KAROLYN LIFE SKILLS SPECIALIST Unavailable Unavailable DESJARLAIS, KAROLYN LIFE SKILLS SPECIALIST Unavailable Unavailable DESJARLAIS, KAROLYN LIFE SKILLS SPECIALIST Unavailable Unavailable DESJARLAIS, KAROLYN LIFE SKILLS SPECIALIST Unavailable Unavailable DESJARLAIS, KAROLYN LIFE SKILLS SPECIALIST Unavailable Unavailable Lester, A Mavis CERTIFIED SCRUM MASTER Unavailable Unavailable Lester, A Mavis CERTIFIED SCRUM MASTER Unavailable Unavailable Lester, A Mavis CERTIFIED SCRUM MASTER Unavailable Unavailable Lester, A Mavis CERTIFIED SCRUM MASTER Unavailable Unavailable Lester, A Mavis CERTIFIED SCRUM MASTER Unavailable Unavailable Lester, A Mavis CERTIFIED SCRUM MASTER Unavailable Unavailable Lester, A Mavis CERTIFIED SCRUM MASTER Unavailable Unavailable Lester, A Mavis CERTIFIED SCRUM MASTER Unavailable Unavailable Lester, A Mavis CERTIFIED SCRUM MASTER Unavailable Unavailable Lester, A Mavis CERTIFIED SCRUM MASTER Unavailable Unavailable Lester, A Mavis CERTIFIED SCRUM MASTER Unavailable Unavailable Lester, A Mavis CERTIFIED SCRUM MASTER Unavailable Unavailable Lester, A Mavis CERTIFIED SCRUM MASTER Unavailable Unavailable Lester, A Mavis CERTIFIED SCRUM MASTER Unavailable Unavailable Lester, A Mavis CERTIFIED SCRUM MASTER Unavailable Unavailable Lester, A Mavis CERTIFIED SCRUM MASTER Unavailable Unavailable Lester, A Mavis CERTIFIED SCRUM MASTER Unavailable Unavailable Lester, A Mavis CERTIFIED SCRUM MASTER Unavailable Unavailable Lester, A Mavis CERTIFIED SCRUM MASTER Unavailable Unavailable Lester, A Mavis CERTIFIED SCRUM MASTER Unavailable Unavailable Lester, A Mavis CERTIFIED SCRUM MASTER Unavailable Unavailable Lester, A Mavis CERTIFIED SCRUM MASTER Unavailable Unavailable Lester, A Mavis CERTIFIED SCRUM MASTER Unavailable Unavailable Lester, A Mavis CERTIFIED SCRUM MASTER Unavailable Unavailable Lester, A Mavis CERTIFIED SCRUM MASTER Unavailable Unavailable Lester, A Mavis CERTIFIED SCRUM MASTER Unavailable Unavailable Lester, A Mavis CERTIFIED SCRUM MASTER Unavailable Unavailable Lester, A Mavis CERTIFIED SCRUM MASTER Unavailable Unavailable Lester, A Mavis CERTIFIED SCRUM MASTER Unavailable Unavailable Lester, A Mavis CERTIFIED SCRUM MASTER Unavailable Unavailable Lester, A Mavis CERTIFIED SCRUM MASTER Unavailable Unavailable Kori STEVEN MD Unavailable Unavailable [...] Kori STEVEN MD Unavailable Unavailable DEE DEE JEHOVAH'S WITNESS MD Unavailable Unavailable DEE DEE JEHOVAH'S WITNESS MD Unavailable Unavailable FUNEZ, JEHOVAH'S WITNESS MD Unavailable Unavailable FUNEZ, JEHOVAH'S WITNESS MD Unavailable Unavailable FUNEZ, JEHOVAH'S WITNESS MD Unavailable Unavailable FUNEZ, JEHOVAH'S WITNESS MD Unavailable Unavailable FUNEZ, JEHOVAH'S WITNESS MD Unavailable Unavailable FUNEZ, JEHOVAH'S WITNESS MD Unavailable Unavailable Ching, Reginah W Kassidy CERTIFIED SCRUM MASTER-C Unavailable Unavailabl e Ching, Reginah W Kassidy CERTIFIED SCRUM MASTER-C Unavailable Unavailabl e Ching, Reginah W Kassidy CERTIFIED SCRUM MASTER-C Unavailable Unavailabl e Ching, Reginah W Kassidy CERTIFIED SCRUM MASTER-C Unavailable Unavailabl e Ching, Reginah W Kassidy CERTIFIED SCRUM MASTER-C Unavailable Unavailabl e Ching, Reginah W Kassidy CERTIFIED SCRUM MASTER-C Unavailable Unavailabl e Ching, Reginah W Kassidy CERTIFIED SCRUM MASTER-C Unavailable Unavailabl e Ching, Reginah W Kassidy CERTIFIED SCRUM MASTER-C Unavailable Unavailabl e Ching, Reginah W Kassidy CERTIFIED SCRUM MASTER-C Unavailable Unavailabl e Ching, Reginah W Kassidy CERTIFIED SCRUM MASTER-C Unavailable Unavailabl e Ching, Reginah W Kassidy CERTIFIED SCRUM MASTER-C Unavailable Unavailabl e Ching, Reginah W Kassidy CERTIFIED SCRUM MASTER-C Unavailable Unavailabl e Ching, Reginah W Kassidy CERTIFIED SCRUM MASTER-C Unavailable Unavailabl e Ching, Reginah W Kassidy CERTIFIED SCRUM MASTER-C Unavailable Unavailabl e Ching, Reginah W Kassidy CERTIFIED SCRUM MASTER-C Unavailable Unavailabl e Ching, Reginah W Kassidy CERTIFIED SCRUM MASTER-C Unavailable Unavailabl e Ching, Elijah Ballyce CERTIFIED SCRUM MASTER-C Unavailable Unavailabl e Ching, Elijah Ballyce CERTIFIED SCRUM MASTER-C Unavailable Unavailabl e Ching, Elijah Ballyce CERTIFIED SCRUM MASTER-C Unavailable Unavailabl e Ching, Elijah W Kassidy CERTIFIED SCRUM MASTER-C Unavailable Unavailabl e Ching, Elijah W Kassidy CERTIFIED SCRUM MASTER-C Unavailable Unavailabl e Ching, Elijah W Kassidy CERTIFIED SCRUM MASTER-C Unavailable Unavailabl e Ching, Elijah W Kassidy CERTIFIED SCRUM MASTER-C Unavailable Unavailabl e Ching, Elijah W Kassidy CERTIFIED SCRUM MASTER-C Unavailable Unavailabl e Ching, Elijah W Kassidy CERTIFIED SCRUM MASTER-C Unavailable Unavailabl e Ching, Elijah Ballyce CERTIFIED SCRUM MASTER-C Unavailable Unavailabl e Ching, Elijah W Kassidy CERTIFIED SCRUM MASTER-C Unavailable Unavailabl e Ching, Elijah Ballyce CERTIFIED SCRUM MASTER-C Unavailable Unavailabl e Ching, Elijah W Kassidy CERTIFIED SCRUM MASTER-C Unavailable Unavailabl e Ching, Elijah Ballyce CERTIFIED SCRUM MASTER-C Unavailable Unavailabl e Ching, Elijah Juareze CERTIFIED SCRUM MASTER-C Unavailable Unavailabl e Ching, Elijah Ballyce CERTIFIED SCRUM MASTER-C Unavailable Unavailabl e LESTER, MATIAS PA Unavailable [...] Unavailable Brown, Jane Unavailable Brown, Jane Unavailable MRAK, L GINGER PA Unavailable Unavailable MARK, L [...] MAHESH RECINOS MD Unavailable Unavailable Mavis Batista CERTIFIED SCRUM MASTER CERTIFIED SCRUM MASTER Unavailable Unavailable KATRIN BLUM MD Unavailable Unavailable [...] Unavailable PATTON, OLUMUYIWA Unavailable Unavailable ESCALERA, ANAHI LIFE SKILLS SPECIALIST Unavailable Unavailable ESCALERA, ANAHI LIFE SKILLS SPECIALIST Unavailable Unavailable ESCALERA, ANAHI LIFE SKILLS SPECIALIST Unavailable Unavailable BEHZAD SOTO MD Unavailable Unavailable [...] is protected by Article 27-F of the [facility] Public Health law. If you continue you may have access to information: Regarding HIV / AIDS; Provided by facilities licensed or operated by the [facility] Office of Mental Health; or Provided by the [facility] Office for People With Developmental Disabilities. If such information is present, then the following [facility] mandated warning applies: This information has [...] ) Propensity to adverse reactions ZIPRASIDONE ZIPRASIDONE [facility] Propensity to adverse reactions TRIMETHOPRIM Trimethoprim [facility] Propensity to adverse reactions SULFAMETHOXAZOLE Sulfamethoxazole [facility] Propensity to adverse reactions PENICILLINS Penicillin [facility] Propensity to adverse reactions HALOPERIDOL HALOPERIDOL [facility] Propensity to adverse reactions DEXTROAMPHETAMINE DEXTROAMPHETAMINE [facility] Drug allergy Drug allergy AMOXICLIIN SWELLING, HIVES [facility] Drug allergy olanzapine ol[facility]apine [facility] Drug allergy trimethoprim trimethoprim "BLISTERS IN MOUTH" [facility] Drug allergy sulfamethoxazole sulfamethoxazole "BLISTERS IN MOUTH" [facility] Drug allergy haloperidol haloperidol [facility] Drug allergy Sulfa (Sulfonamide Antibiotics) Sulfa (Sulfonami de Antibiotics) "BLISTERS IN MOUTH" [facility] Drug allergy Penicillins Penicillins SWELLING, HIVES R [facility] Encounters Encounter Providers Location Date Indications Data Source(s ) Emergency Attender: PETR HOOD MDAttender: APURVA PATTON [id number] 01/12/2021 02:21:00 PM EST - 01/13/2021 08:36:00 AM EST [facility] Patient discharged. Emergency Attender: MICHAEL RAMSEY MDConsultant: HONEY F NON 01/11/2021 11:07:00 PM EST - 01/12/2021 12:45:00 PM EST [facility] Patient discharged. Outpatient Attender: KAROLYN VAN NP 11/24/2020 03: 20:00 PM EDT [facility] Francesco Ritchie MD: [address] [place] [phone], Ph. Attender: Francesco Ritchie MD PA - [facility] 11/12/2020 12:00:00 AM EDT [facility]IAS ([facility]) OFFICE VISIT, ESTOutpatient Attender: Nora MIKE PPNCNY [place] 11/05/2020 01:30:00 PM EDT - 11/05/2020 01:30:00 PM EDT Delusional disorders [facility] ([facility]) Delusional disorders Emergency Attender: EVONNE HAGENConsultant: STAFF NON 11/03/2020 11:35:00 AM EDT - 11/03/2020 03:27:00 PM EDT [facility] Patient discharged. Outpatient [facility] 10/12/2020 12:00:00 AM EDT eCW1 ([facility]) Emergency Attender: Matt Ruby MDConsultant: STAFF NON 10/03/2020 06:06:00 PM EDT - 10/03/2020 07:27:00 PM EDT [facility] Patient discharged. Inpatient Attender: MIRLANDE Elizabeth nder: PETR HOOD MDAdmitter: PETR HOOD MDReferrer: ANAHI ESCALERA LIFE SKILLS SPECIALIST [id number] 09/11/2020 03:40:00 PM EDT - 09/29/2020 03:01:00 PM EDT [facility] Patient discharged. Emergency Attender: ZAYNAB STEVEN MDConsultant: STAFF NON 09/09/2020 04:46:00 PM EDT - 09/09/2020 09:35:00 PM EDT [facility] Patient discharged. Outpatient Attender: KAROLYN VAN LIFE SKILLS SPECIALIST 09/03/2020 11: 00:00 AM EDT [facility] Outpatient [facility] 08/31/2020 12:00:00 AM EDT eCW1 ([facility]) Inpatient Attender: MIRLANDE FUNEZ MDAtte nder: GENO TYE MDAdmitter: MIRLANDE FUNEZ MDReferrer: KARI OTERO MD [id number] 08/25/2020 03:33:00 PM EDT - 08/27/2020 12:52:00 PM EDT [facility] Patient discharged. Inpatient Attender: MIRLANDE Elizabeth nder: PETR HOOD MDAttender: Hiral Liriano MDAdmitter: PETR HOOD MDReferrer: PETR HOOD MD [id number] 08/06/2020 12:00:00 AM EDT - 08/17/2020 12:08:00 PM EDT Suicidal ideations [facility] Suicidal ideations Patient discharged. Outpatient [facility] 07/22/2020 12:00:00 AM EDT eCW1 ([facility]) Outpatient Attender: Jane Edward 07/15/2020 08:03:00 AM E DT [facility] Outpatient [facility] 07/15/2020 12:00:00 AM EDT eCW1 ([facility]) Outpatient [facility] 07/12/2020 12:00:00 AM EDT eCW1 ([facility]) Emergency Attender: EVONNE Lackeyant: STAFF NON 06/28/2020 07:41:00 PM EDT - 06/28/2020 09:08:00 PM EDT [facility] Patient discharged. Emergency Attender: EVONNE Lackeyant: STAFF NON 06/16/2020 04:22:00 PM EDT - 06/16/2020 08:01:00 PM EDT [facility] Patient discharged. Outpatient Attender: Jane EdwardAttender: JANE EDWARD 06/16/2020 09:02:00 AM EDT [facility] Outpatient [facility] 06/14/2020 12:00:00 AM EDT eCW1 ([facility]) Outpatient [facility] 06/11/2020 12:00:00 AM EDT eCW1 ([facility]) Outpatient Attender: Jane Stonerender: JANE EDWARD 05/26/2020 05:00:00 PM EDT [facility] Outpatient [facility] 05/26/2020 12:00:00 AM EDT eCW1 ([facility]) Outpatient [facility] 05/24/2020 12:00:00 AM EDT eCW1 ([facility]) Outpatient [facility] 05/24/2020 12:00:00 AM EDT eCW1 ([facility]) Outpatient [facility] 05/14/2020 12:00:00 AM EDT eCW1 ([facility]) Outpatient [facility] 05/04/2020 12:00:00 AM EST eCW1 ([facility]) Outpatient Attender: KAROLYN VAN NP 04/29/2020 01: 20:00 PM EST [facility] Outpatient [facility] 04/28/2020 12:00:00 AM EST eCW1 ([facility]) Outpatient [facility] 04/28/2020 12:00:00 AM EST eCW1 ([facility]) Outpatient [facility] 04/23/2020 12:00:00 AM EST eCW1 ([facility]) Outpatient Attender: Jane EdwardAttender: JANE EDWARD 04/20/2020 03:00:00 PM EST [facility] Outpatient [facility] 04/19/2020 12:00:00 AM EST eCW1 ([facility]) Outpatient [facility] 04/16/2020 12:00:00 AM EST eCW1 ([facility]) Outpatient Attender: FAHAD MOONEY MD 04/15/2020 09:4 5:00 AM EST [facility] Outpatient [facility] 04/12/2020 12:00:00 AM EST eCW1 ([facility]) Outpatient [facility] 04/12/2020 12:00:00 AM EST eCW1 ([facility]) Outpatient [facility] 04/08/2020 12:00:00 AM EST eCW1 ([facility]) Outpatient [facility] 04/08/2020 12:00:00 AM EST eCW1 ([facility]) Outpatient [facility] 04/08/2020 12:00:00 AM EST eCW1 ([facility]) Outpatient [facility] 04/05/2020 12:00:00 AM EST eCW1 ([facility]) Outpatient Attender: NATHAN PAUL PA-C 03/30/2020 10:30:00 AM [facility] Outpatient Attender: Shira Youngblood PA-C 03/30/2020 10:18 :00 AM [facility] Outpatient [facility] 03/30/2020 12:00:00 AM EST eCW1 ([facility]) Outpatient Attender: Jane EdwardAttender: JANE EDWARD 03/23/2020 02:00:00 PM [facility] Outpatient Attender: Jane EdwardAttender: JANE EDWARD 03/17/2020 10:30:00 AM [facility] Outpatient Attender: Jane Stonerender: JANE EDWARD 03/11/2020 04:00:00 PM [facility] Outpatient Attender: FAHAD MOONEY MD 03/11/2020 06:3 0:00 AM [facility] Admission cancelled. Disregard status an d admitted date. Outpatient Attender: KAROLYN VAN NP 03/09/2020 03: 40:00 PM [facility] Outpatient [facility] 03/03/2020 12:00:00 AM EST eCW1 ([facility]) Outpatient Attender: Shira Becerraferrer: Shira Youngblood PA-C EMERGENCY ROOM-LAB 03/01/2020 04:49:00 PM EST - 03/01/2020 04:49:00 PM [facility] Outpatient Attender: Shira Youngblood PA-C 03/01/2020 03:45 :00 PM [facility] Outpatient [facility] 03/01/2020 12:00:00 AM EST eCW1 ([facility]) Outpatient [facility] 03/01/2020 12:00:00 AM EST eCW1 ([facility]) Outpatient Attender: KAROLYN VAN NP 02/18/2020 02: 40:00 PM [facility] Outpatient Attender: Kassidy SERRANO 02/18/2020 10:00:0 0 AM EST [facility] Outpatient [facility] 02/18/2020 12:00:00 AM EST eCW1 ([facility]) Outpatient [facility] 02/10/2020 12:00:00 AM EST eCW1 ([facility]) Outpatient [facility] 02/03/2020 12:00:00 AM EST eCW1 ([facility]) Outpatient [facility] 01/14/2020 12:00:00 AM EST eCW1 ([facility]) Outpatient [facility] 01/06/2020 12:00:00 AM EST eCW1 ([facility]) Outpatient Attender: JOHNATHON PATEL 01/02/2020 10:06:00 A M [facility] Outpatient [facility] 01/02/2020 12:00:00 AM EST eCW1 ([facility]) Outpatient Attender: Jane EdwardAttender: JANE EDWARD 01/01/2020 02:30:00 PM [facility] Outpatient Attender: KAROLYN VAN NP 12/24/2019 11: 00:[address] [facility] Outpatient Attender: Shira Youngblood PA-C 12[facility]24[facility] 12/24/2019 12:00:00 AM EDT eCW1 ([facility]) Outpatient Attender: Jane Stonerender: JANE EDWARD 12/23/2019 01[facility]54[facility] 12/23/2019 12:00:00 AM EDT eCW1 ([facility]) Outpatient Attender: Mavis DIEGO FP 12/12/2019 11:3 5:02 AM EDT [facility] Outpatient Attender: Jane Stonerender: JANE EDWARD 12/11/2019 03[facility] 12/09/2019 12:00:00 AM EDT eCW1 ([facility]) Outpatient Attender: Mavis DIEGO FP 12/05/2019 01:2 6:01 PM EDT [facility] Inpatient Attender: PRERNA RIOS MDAdmitter: PRERNA Alavrado MD ER-3RD 12/05/2019 10:08:00 AM EDT - 12/10/2019 01:07:00 PM EDT [facility] Patient discharged. Outpatient Attender: NATHAN PAUL PA-C 12/05/2019 09:03:[address] [facility] Admission cancelled. Disregard status an d admitted date. Inpatient Attender: BEHZAD SOTO MD Attender: BEHZAD SOTO MDAttender: DIOGENES BUENO MDAttender: DIOGENES BUENO MDAdmitter: BEHZAD SOTO MD ER-ICU 12/04/2019 11:06:00 PM EDT - 12/05/2019 10:03:00 AM EDT [facility] Patient discharged. Emergency Attender: GINGER Salaser: Melissa Youngblood PA-C EMERGENCY ROOM-ER 12/04/2019 04:21:00 PM EDT - 12/04/2019 08:40:[address] [facility] Patient discharged. Outpatient Attender: KAROLYN VAN NP 12/04/2019 03: 11:[address] [facility] Outpatient Attender: Mavis PATEL 11/29/2019 07:0 4:03 PM [facility] Outpatient Attender: JOHNATHON PATEL 11/29/2019 07:04:01 P M [facility] Outpatient Attender: Mavis PATEL 11/24/2019 12:2 9:00 PM [facility] Outpatient Attender: KAROLYN VAN NP 11/04/2019 11: 40:[address] [facility] Outpatient Attender: Shira Youngblood PA-C 10/31/2019 09:06 :[address] [facility] Outpatient Attender: Jane EdwardAttender: JANE EDWARD 10/27/2019 11:00:[address] [facility] Outpatient Attender: KAROLYN VAN NP 10/21/2019 03: 20:[address] [facility] Outpatient Attender: KATRIN BLUM MDAttender: KATRIN BLUM 10/06/2019 09:37:[address] [facility] Outpatient Attender: KATRIN BLUM MDAttender: KATRIN BLUM 08/04/2019 09:42:[address] [facility] Outpatient Attender: KATRIN BLUM MDAttender: KATRIN BLUM 07/07/2019 03:30:[address] [facility] Outpatient Attender: KATRIN BLUM MDAttender: KATRIN BLUM 04/21/2019 10:29:00 AM [facility] Outpatient Attender: MAHESH RECINOS MDAttender: MAHESH RECINOS 02/24/2019 01:46:00 PM [facility] Outpatient Attender: Jane EdwardAttender: JANE EDWARD 02/21/2019 10:00:00 AM [facility] Outpatient Attender: MAHESH RECINOS MDAttender: MAHESH RECINOS 02/10/2019 02:18:00 PM [facility] Inpatient Attender: CHAO Ferrell harjinder: PRERNA RIOS MDAdmitter: PRERNA RIOS MD ER-3RD 12/23/2018 04:01:00 PM EDT - 12/26/2018 01:22:00 PM T [facility] Patient discharged. Inpatient Attender: ONDINA RAMIREZ MDAdmitter: ONDINA RAMIREZ MD E R-ICU 12/19/2018 05:26:00 PM EDT - 12/23/2018 03:42:00 PM EDT [facility] Patient discharged. Emergency Attender: MATIAS MIKE EMERGENCY ROOM-ER 03:51:00 PM EDT - 12/19/2018 04:47:[address] [facility] Patient discharged. Medications Medication Brand Name [...] propionate 0.05 MG/ACTUAT Metered Dose [facility] [place] 50 mcg/actuation FLUTICASONE PROPIONATE 11/02/2020 12:00:00 AM [...] A DAY NEEDED FOR CONSTIPATION SOLD: 11/04/2020 [facility] Clonidine Hydrochloride 0.2 MG Oral Tablet [...] active Take 1 tablet by mouth d [facility] Buprenorphine 8 MG / Naloxone 2 MG Oral Strip buprenorphine-naloxone (SUBOXONE) 8-2 MG per sublingual film 2 Film buprenorphine-naloxone (SUBOXONE) 8-2 MG per sublingual film 2 Film 09/29/2020 09:00:00 AM EDT 2 {film} Sublingual active 2 Film, Sublingual, Daily Standard, First dose (after last reorder) on Sun09/29/20 at 0900, For 7 days [facility] Medication administered onsite 1,000 mg 09/29/2020 12:00:00 [...] tablet by cali th Three times daily [facility] Levetiracetam 1000 MG Oral Tablet levETIRAcetam 1000 M G Oral Tablet (KEPPRA) levETIRAcetam 1000 MG Oral Tablet (KEPPRA) 09/29/2020 12:00:00 AM EDT 1000 mg Oral active Take 1 tablet by cali th Two Times Daily [facility] Chlorpromazine hydrochloride 100 MG Oral Tablet chlorproMAZINE HCl 100 MG Oral Tablet (THORAZINE) chlorproMAZINE HCl 100 MG Oral Tablet (THORAZINE) 05/2020 12:00:00 AM EDT 100 mg Oral active Take 1 tablet by mouth Two Times Daily [facility] 600 mg 09/29/2020 12:00:00 AM EDT tablet [...] on Sun09/27/20 at 2100, For 30 doses [facility] Medication administered onsite chlorproMAZINE (THORAZINE) injection 100 mg [id number] 09/27/2020 01:00:00 PM EDT 100 mg Intramuscular completed 100 mg, Intramuscular, Once, On Sun09/27/20 at 1300, For 1 dose
May be given over objection
[facility] Medication administered onsite chlorproMAZINE (THORAZINE) injection 100 mg [id number] 09/25/2020 02:00:00 PM EDT 100 mg Intramuscular completed 100 mg, Intramuscular, Once, On 09/25/20 at 1400, For 1 dose [facility] Medication administered onsite diphenhydrAMINE (BENADRYL) injection 50 mg [id number] 09/25/2020 02:00:00 PM EDT 50 mg Intramuscular completed 50 mg, Intramuscular, Once, On 09/25/20 at 1400, For 1 dose [facility] Medication administered onsite olanzapine 5 MG/ML Injectable Solution OLANZapine (ZYP REXA) injection 10 mg OLANZapine (ZYPREXA) injection 10 mg 09/25/2020 09:15:00 AM EDT 10 mg Intramuscular completed 10 mg, Intr amuscular, Once, On 09/25/20 at 0915, For 1 dose
Reconstitute 10 mg vial with 2.1 mL SWFI; resulting solution is ~5 mg/mL; Use within 1 hour following reconstitution.
[facility] Medication administered onsite Chlorpromazine hydrochloride 100 MG Oral Tablet chlorproMAZINE (THORAZINE) tablet 100 mg chlorproMAZINE (THORAZINE) tablet 100 mg 09/23/2020 10 :00:00 PM EDT 100 mg Oral aborted 100 mg, Oral, Nightly, First dose (after last modification) on Sun09/23/20 at 2200, For 28 doses [facility] Medication administered onsite gabapentin 300 MG Oral Capsule gabapentin (NEURONTIN) capsule 600 mg gabapentin (NEURONTIN) capsule 600 mg 09/23/2020 03:00:00 PM EDT 600 mg Oral active 600 mg, Oral, Three Times D aily Standard, Indications: substance use anxiety, First dose (after last modification) on Sun09/23/20 at 1500, For 57 doses [facility] Medication administered onsite Chlorpromazine hydrochloride 50 MG Oral Tablet chlorproMAZINE (THORAZINE) tablet 50 mg chlorproMAZINE (THORAZINE) tablet 50 mg 09/21/2020 10:00:00 PM E DT 50 mg Oral aborted 50 mg, Ora l, Nightly, First dose on Sun09/21/20 at 2200, For 30 days [facility] Medication administered onsite Ibuprofen 400 MG Oral Tablet ibuprofen (MOTRIN) tablet 400 mg ibuprofen (MOTRIN) tablet 400 mg 09/21/2020 09:30:00 PM EDT 400 mg Oral comp leted 400 mg, Oral, Once, On Sun09/21/20 at 2130, For 1 dose
Take with food.
[facility] Medication administered onsite Chlorpromazine hydrochloride 25 MG Oral Tablet chlorproMAZINE (THORAZINE) tablet 25 mg chlorproMAZINE (THORAZINE) tablet 25 mg 09/21/2020 03:00:00 PM E DT 25 mg Oral aborted 25 mg, Ora l, 2 Times Daily, First dose (after last modification) on Sun09/21/20 at 1500, For 30 doses [facility] Medication administered onsite Citalopram 20 MG Oral Tablet citalopram (CELEXA) table t 10 mg citalopram (CELEXA) tablet 10 mg 09/19/2020 09:00:00 AM EDT 10 mg Oral active 10 mg, Oral, Daily Standard, First dose on Sun09/19/20 at 0900, For 30 days [facility] Medication administered onsite Chlorpromazine hydrochloride 25 MG Oral Tablet chlorproMAZINE (THORAZINE) tablet 25 mg chlorproMAZINE (THORAZINE) tablet 25 mg 09/15/2020 12:15:00 PM E DT 25 mg Oral aborted 25 mg, Ora l, Three Times Daily Standard, First dose on Sun09/15/20 at 1215, For 30 days [facility] Medication administered onsite Nicotine 2 MG Oral Lozenge nicotine (NICORETTE) lozeng e 2 mg nicotine (NICORETTE) lozenge 2 mg 09/15/2020 10:22:02 AM EDT 2 mg Mouth/Th roat active 2 mg, Mouth/Throat, Every 2 hours PRN, Smoking cessation, Starting on Sun09/15/20 at 1022, For 30 days
Should not be chewed or swallowed; allow to dissolve slowly (~20-30 minutes)
[facility] Medication administered onsite gabapentin 400 MG Oral Capsule gabapentin (NEURONTIN) capsule 400 mg gabapentin (NEURONTIN) capsule 400 mg 09/14/2020 05:00:00 PM EDT 400 mg Oral aborted 400 mg, Oral, Three Times D aily Standard, Indications: substance use anxiety, First dose (after last modification) on Sun09/14/20 at 1700, For 84 doses [facility] Medication administered onsite Acetaminophen 325 MG Oral [...] mg from all sources in 24 hours.
[facility] Medication administered onsite 24 HR Nicotine 0.875 MG/HR Transdermal P atch nicotine (NICODERM CQ) 21 MG/24HR 1 patch nicotine (NICODERM CQ) 21 MG/24HR 1 patch 09/13/2020 09:00:00 AM EDT 1 {patch} Transdermal aborted 1 patch, Transdermal, Administer over 24 Hours, Daily Standard, First dose on Sun09/13/20 at 0900, For 30 days [facility] Medication administered onsite Bisacodyl 10 MG Rectal Suppository bisacodyl (DULCOLAX ) suppository 10 mg bisacodyl (DULCOLAX) suppository 10 mg 09/13/2020 08:49:03 AM EDT 10 mg Rectal active 10 mg, Rectal, Every 72 hours PRN, Constipation, Starting on Sun09/13/20 at 0849, For 30 days
Hold if patient has had BM within the past 2 days.
[facility] Medication administered onsite Docusate Sodium 100 MG Oral Capsule docusate sodium (C OLACE) capsule 100 mg docusate sodium (COLACE) capsule 100 mg 09/13/2020 08:49:03 AM EDT 100 mg Oral active 100 mg, Oral, 2 Times Daily PRN, Constipation, Starting on Sun09/13/20 at 0849, For 30 days [facility] Medication administered onsite sennosides, SHELTER 8.6 MG Oral Tablet senna tablet 2 tablet sen na tablet 2 tablet 09/13/2020 08:49:03 AM EDT 2 {tbl} Oral active 2 tablet, Oral, Nightly PRN, Constipation, Starting on Sun09/13/20 at 0849, For 30 days [facility] Medication administered onsite Magnesium Hydroxide 80 MG/ML [...] creatinine > 2 notify provider before administering.
[facility] Medication administered onsite Asenapine 5 MG Sublingual Tablet Asenapine Maleate (SA PHRIS) SL tablet 5 mg Asenapine Maleate (SAPHRIS) SL tablet 5 mg 09/12/2020 09:00:00 PM EDT 5 mg Sublingual aborted 5 mg, Sublingu al, 2 Times Daily,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, in r emission OTHER PSYCHOACTIVE SUBSTANCE ABUSE, IN REMISSION Diagnosis 03/01/2020 03:45:00 PM [facility] G56.03 CARPAL TUNNEL SYNDROME, BILATERAL UPPER LIMBS CARPAL TUNNEL SYNDROME, BILATERAL UPPER LIMBS Diagnosis 03/01/2020 03:45:00 [facility] K21.9 Gastro-esophageal reflux disease without esophagitis GASTRO-ESOPHAGEAL REFLUX DISEASE WITHOUT ESOPHAGITIS Diagnosis 02/18/2020 10:00:00 AM [facility] F12.10 Cannabis abuse, uncomplicated CANNABIS ABUSE, UNCOMPLI CATED Diagnosis 12/24/2019 11:00:[address] [facility] R13.12 Dysphagia, oropharyngeal phase DYSPHAGIA, OROPHARYNGEA L PHASE Diagnosis 12/24/2019 08:24:[address] [facility] M54.2 Cervicalgia CERVICALGIA Diagnosis 12/24/2019 08:24:[address] [facility] T50.914D POISONING BY MULTIPLE UNSP DRUG/MEDS/BIO L SUBST, U POISONING BY MULTIPLE UNSP DRUG/MEDS/BIOL SUBST, U Diagnosis 12/24/2019 08:24:[address] [facility] F19.20 Other psychoactive substance dependence, uncomplicated OTHER PSYCHOACTIVE SUBSTANCE DEPENDENCE, UNCOMPLIC Diagnosis 12/05/2019 10:08:00 AM [facility] R45.851 Suicidal ideations SUICIDAL IDEATIONS Diagnosis 10/2019 10:08:00 AM [facility] G40.909 Epilepsy, unspecified, not intractable, without status epilepticus EPILEPSY, UNSP, NOT INTRACTABLE, WITHOUT STATUS EP Diagnosis 10/2019 10:08:00 AM [facility] F32.2 Major depressive disorder, s rito episode, severe without psychotic features MAJOR DEPRESSV DISORD, SINGLE EPSD, SEV Diagnosis 12/05/2019 10:08:00 AM [facility] F25.1 Schizoaffective disorder, depressive typ e SCHIZOAFFECTIVE DISORDER, DEPRESSIVE TYPE Diagnosis 12/05/2019 10:08:00 AM [facility] Y92.[address] or not applicable UNSPECIFIED PLACE OR NOT APPLICABLE Diagnosis 12/04/2019 11:06:00 PM [facility] X58.XXXA Exposure to other specified factors, ini tial encounter EXPOSURE TO OTHER SPECIFIED FACTORS, INITIAL ENCOU Diagnosis 12/04/2019 11:06:00 P M [facility] T42.6X2A Poisoning by other antiepile ptic and sedative-hypnotic drugs, intentional self-harm, initial encounter POISN BY OTH ANTIEPLPTC AND SED-HYPNTC DRUGS, SLF- Diagnosis 12/04/2019 11:06:00 PM EDT [facility] T40.902A Poisoning by unspecified psy chodysleptics [hallucinogens], intentional self-harm, initial encounter POISONING BY UNSP PSYCHODYSLEPTICS, SELF-HARM, INI Diagnosis 12/04/2019 11:06:00 PM [facility] K21.9 Gastro-esophageal reflux disease without esophagitis GASTRO-ESOPHAGEAL REFLUX DISEASE WITHOUT ESOPHAGIT Diagnosis 12/04/2019 11:06:00 PM [facility] F90.9 Attention-deficit hyperactivity disorder , unspecified type ATTENTION- DEFICIT HYPERACTIVITY DISORDER, UNSPECIF Diagnosis 12/04/2019 11:06:00 PM [facility] F43.10 Post-traumatic stress disorder, unspecif ied POST-TRAUMATIC STRESS DISORDER, UNSPECIFIED Diagnosis 12/04/2019 11:06:00 PM [facility] F43.23 Adjustment disorder with mixed anxiety a nd depressed mood ADJUSTMENT DISORDER WITH MIXED ANXIETY AND DEPRESS Diagnosis 12/04/2019 11:06:00 PM [facility] T42.4X2A Poisoning by benzodiazepines, intentiona l self-harm, initial encounter POISONING BY BENZODIAZEPINES, INTENTIONAL SELF-HARM, INIT Diagnosis 12/04/2019 11:06:00 PM [facility] Y93.89 Activity, other specified ACTIVITY, OTHER SPECIFIED Di agnosis 12/04/2019 04:21:[address] [facility] Y92.[address] the place of o ccurrence of the external cause OT PLACES THE PLACE OF OCCURRENCE OF THE EXTER Diagnosis 09/2019 04:21:[address] [facility] Z79.899 Other residential (current) drug therapy O THER MCC (CURRENT) DRUG THERAPY Diagnosis 12/04/2019 04:21:00 PM [facility] Z20.828 Contact with and (suspected) exposure to other viral communicable diseases CONTACT W AND EXPOSURE TO OTH VIRAL COMMUNICABLE D Diagnosis 12/04/2019 04:21:[address] [facility] F17.210 Nicotine dependence, cigarettes, uncompl icated NICOTINE DEPENDENCE, CIGARETTES, UNCOMPLICATED Diagnosis 12/04/2019 04:21:00 PM [facility] T50.992A Poisoning by other drugs, me dicaments and biological substances, intentional self-harm, initial encounter POISONING BY OTH DRUG/MEDS/BIOL SUBST, SELF-HARM, Diagnosis 12/04/2019 04:21:00 PM EDT [facility] R45.851 Suicidal ideations SUICIDAL IDEATIONS Diagnosis 09/2019 04:21:00 PM EDT [facility] [id number] Seizure disorder Seizure Disorder Problem 11/12/2020 12 :00:00 AM EDT [facility]) [id number] Schizophrenia Schizophrenia Problem 11/12/2020 12:00:00 AM EDT [facility]) 28101999 Hyperthyroidism Hyperthyroidism Problem 11/12/2020 12:0 0:00 AM EDT [facility]) F20.9 [id number] Schizophrenia, unspecified type Problem 09/24/2020 12:00:00 AM EDT eCW1 ([facility]) F19.10 Polysubstance abuse Polysubstance abuse Problem 0 03/11/2020 12:00:00 AM EST eCW1 ([facility]) K14.6 [id number] Tongue sore Problem 03/01/2020 12:00:[address] eCW1 ([facility]) F19.11 [id number] History of drug abuse Problem 03/01/2020 12: 00:00 AM EST eCW1 ([facility]) F19.10 [id number] Substance abuse Problem 12/24/2019 12:00:00 AM EDT eCW1 ([facility]) [id number] SNOMED CT Concept SNOMED CT Concept Problem 12/10 06:41:41 PM EDT [place] ([facility]) [id number] Fitting procedure Fitting Procedure Problem 12/10 06:41:41 PM EDT [place] ([facility]) 84271191 Depressive disorder Depressive Disorder Problem 1 06:41:41 PM EDT [place] ([facility]) Surgeries/Procedures Procedure Description Date Indications Data Source(s) CVR Data Base Administrator.Svc. Other 11/05/2020 12:00:00 AM EDT - 2020 12:00:00 AM EDT [facility] ([facility]) CVR Data Base Administrator.Svc. Contraceptive 11/05/2020 12 :00:00 AM EDT - 11/05/2020 12:00:00 AM EDT [facility] ([facility]) CVR Med.Svc. Height/Weight 11/05/2020 12 :00:00 AM EDT - 11/05/2020 12:00:00 AM EDT [facility] ([facility]) CVR Blood Pressure 11/05/2020 12:00:00 AM EDT - 2020 12:00:00 AM EDT [facility] ([facility]) OFFICE VISIT, EST 11/05/2020 12:00:00 AM EDT - 021 12:00:00 AM EDT [facility] ([facility]) EKG 12-LEAD - CMAXX REPORT <td>EKG 12-LEAD - CMAXX REPORT</td><td></td><td>09/22/2020 8:46 PM EDT</td><td></td><td></td> 09/22/2020 08:46:20 PM [facility] EKG 12-LEAD - CMAXX REPORT <td>EKG 12-LEAD - CMAXX REPORT</td><td></td><td>09/22/2020 8:46 PM EDT</td><td></td><td></td> 09/22/2020 08:46:20 PM [facility] EKG 12-LEAD <td>EKG 12-LEAD</td><td>Rout ine</td><td>09/22/2020 8:46 PM EDT</td><td></td><td> </td> 09/22/2020 08:46:20 PM [facility] URNLS DIP STICK/TABLET REAGENT AUTO MICROSCOPY <td>URI NALYSIS WITH MICROSCOPIC</td><td>Routine</td><td>09/18/2020 3:48 PM EDT</td><td></td><td> </td> 09/18/2020 03:48:00 PM [facility] 25 HYDROXY INCLUDES FRACTIONS IF PERFORMED <td>VITAMIN D 25 HYDROXY, TOTAL</td><td>Routine</td><td>09/17/2020 7:10 AM EDT</td><td></td><td> </td> 09/17/2020 07:10:00 AM [facility] BLOOD COUNT COMPLETE AUTO&AUTO DIFRNTL WBC COUNT <td>C BC AND DIFFERENTIAL</td><td>Routine</td><td>09/17/2020 7:10 AM EDT</td><td></td><td> </td> 09/17/2020 07:10:00 AM [facility] THYROID STIMULATING HORMONE TSH <td>TSH</td><td>Routin e</td><td>09/17/2020 7:10 AM EDT</td><td></td><td> </td> 09/17/2020 07:10:00 AM [facility] HEMOGLOBIN GLYCOSYLATED A1C <td>HEMOGLOBIN A1C</td><td>Routine</td><td>09/17/2020 7:10 AM EDT</td><td></td><td> </td> 09/17/2020 07:10:00 AM [facility] LIPID PANEL <td>LIPID PANEL</td><td>Rout ine</td><td>09/17/2020 7:10 AM EDT</td><td></td><td> </td> 09/17/2020 07:10:00 AM [facility] COMPREHENSIVE METABOLIC PANEL <td>COMPREHENSIVE METABO LIC PANEL</td><td>Routine</td><td>09/17/2020 7:10 AM EDT</td><td></td><td> </td> 09/17/2020 07:10:00 AM [facility] IADNA NEISSERIA GONORRHOEAE AMPLIFIED PROBE TQ <td>AMP LIFIED GC AND CHLAMYDIA</td><td>Routine</td><td>09/12/2020 11:57 AM EDT</td><td></td><td> </td> 09/12/2020 11:57:00 AM [facility] URNLS DIP STICK/TABLET REAGENT AUTO MICROSCOPY <td>URI NALYSIS WITH MICROSCOPIC</td><td>Routine</td><td>09/12/2020 11:57 AM EDT</td><td></td><td> </td> 09/12/2020 11:57:00 AM [facility] CULTURE BCT ISOL&PRSMPTV ID ISOLATE EA URINE <td>URINE CULTURE</td><td>Routine</td><td>09/12/2020 11:57 AM EDT</td><td></td><td> </td> 09/12/2020 11:57:00 AM [facility] URNLS DIP STICK/TABLET REAGENT AUTO MICROSCOPY <td>URI NALYSIS WITH MICROSCOPIC</td><td>Routine</td><td>08/15/2020 6:54 PM EDT</td><td></td><td> </td> 08/15/2020 06:54:00 PM [facility] Psychological Tests, Neurobehavioral and Cognitive Status 12/06/2019 12:00:00 AM [facility] Introduction of Electrolytic and Water B alance Substance into Peripheral Vein, Percutaneous Approach 12/04/2019 12:00:00 AM [facility] Results ID Date Data Source [id number] 01/11/2021 11:07:00 PM EST [facility] 1 OrderSheet [facility] Emergency Department [address] [place] [address] Phone #: ext- [phone] 01/11/2021 23:07 Patient: [...] Nora Moreau RN; Nora RNDefined by [facility]) Per protocol;(01/12/2021) Michael Ramsey 2 OrderSheet [facility] Emergency Department [address] [place] [address] Phone #: ext- [phone] 01/11/2021 23:07 Patient: [...] consideration given -- 11:31 01/12/2021 3 OrderSheet [facility] Emergency Department [address] [place] [address] Phone #: ext- [phone] 01/11/2021 23:07 Patient: [...] Michael RamseyConsult - 11:51 01/12/2021 12:11 Kinjal Pastarna Riccardo Rachel R.N. M.D.;[Electronicall y signed by Jaelyn Pastrana R.N. (12:57 01/12/2021)][Electronically signed by Evonne Hagen M.D. (18:45 01/12/2021)][Electronically signed by Evonne Hagen M.D. (18:45 01/12/2021)][Electronically signed by Michael Ramsey (08:36 01/13/2021)][Electronically locked by Jaelyn Pastrana R.N. (12:57 01/12/2021)] Name Value Range Interpretation Code Description Data [place]ira rce(s) Supporting Document(s) ID Date Data Source [id number] 01/11/2021 11:07:00 PM EST [facility] 1 Medication Reconciliation Report [facility] Emergency Department [address] [place] [address] Phone #: ext- [phone] 01/11/2021 23:07 Patient: [...] to the patient:None. 2 Medication Reconciliation Report [facility] Emergency Department [address] [place] [address] Phone #: [phone] goj- [phone] 01/11/2021 23:07 Patient: BRUNA LEE Sex: F : 1985 Age: 35y Name Value Range Interpretation Code Description Data [place] rce(s) Supporting Document(s) ID Date Data Source [id number] 01/11/2021 11:07:00 PM [facility] 1 Medication Administration Record [facility] Emergency Department [address] [place] [address] Phone #: ext- [phone] 01/11/2021 23:07 Patient: [...] Benadryl IM 50 mg (NOW)00:45 01/12/2021 HCL)Jovan Maldondao, R.N. 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 01/12/2021 18:45) Name Value Range Interpretation Code Description Data [place] rce(s) Supporting Document(s) ID Date Data Source [id number] 01/11/2021 11:07:00 PM EST [facility] 1 Clinical Report - Nurses [facility] Emergency Department [address] [place] [address] Phone #: ext- [phone] 01/11/2021 23:07 Patient: [...] Disorder.Anxiety Reaction.Depression. 2 Clinical Report - Nurses [facility] Emergency Department [address] [place] [address] Phone #: ext- [phone] 01/11/2021 23:07 Patient: [...] notified. --23:01/11/21 3 Clinical Report - Nurses [facility] Emergency Department [address] [place] [address] Phone #: ext- [phone] 01/11/2021 23:07 Patient: [...] placed and Chart faxed to [facility] at [facility]. [facility] and NURYS currently onPsych diversion.). [...] Maldonado R.N. 4 Clinical Report - Nurses [facility] Emergency Department [address] [place] [address] Phone #: ext- [phone] 01/11/2021 23:07 Patient: BRUNA LEE Sex: F [...] F. --09:17 01/12/21 BurrED Tech, Barbara, ER [id number] patient is sleeping. ( PT sleeping in [...] RR: 14. O2 saturation: 98%. --12:02 01/12/21 [facility] ERTech1. 5 Clinical Report - Nurses [facility] Emergency Department [address] [place] [address] Phone #: ext- [phone] 01/11/2021 23:07 Patient: BRUNA LEE Sex: F : 1985 Age: 35yDISPOSITION / DISCHARGE Report was given to a nurse via a phone call. Report included patient's care, treatment, allergies, condition, vital signs, labs, medications and IV's. All questions were answered. Report was acknowledged. (Krish BECKER at [facility] psych unit). --12:20 01/12/21 Jaelyn Pastrana R.N. Departure time: 12:46 01/12/2021. Transferred to [facility]. Transported via ambulance by EMS. Patient's personal [...] rce(s) Supporting Document(s) ID Date Data Source [id number] 01/11/2021 11:07:00 PM EST [facility] 1 Clinical Report - Physicians/Mid Levels [facility] Emergency Department [address] [place] [address] Phone #: ext- [phone] 01/11/2021 23:07 Patient: [...] times and had 2 beers 1 hour [employer] and she started having burning sensation on [...] day. 2 Clinical Report - Physicians/Mid Levels [facility] Emergency Department [address] [place] [address] Phone #: ext- [phone] 01/11/2021 23:07 Patient: [...] results 3 Clinical Report - Physicians/Mid Levels [facility] Emergency Department [address] [place] [address] Phone #: ext- [phone] 01/11/2021 23:07 [id number] Sex[facility] F : 1985 Age: 35y Test Result Flag Units (Reference) HCG QUANT <0.5 mIU/mL Interpretation: Less than 5 mU/mL: Negative6-10 mU/mL: Borderline (suggest repeat in 48 hours) >10: PositiveApprox HCG range (mU/mL) Weeks post LMP 5.4-708 mU/mL 3-4 Gsxdm994- 28378 mU/mL 5-6 Weeks 4059-372363 mU/mL 7-8 Ttmjy97877-722114 mU/mL 9-10 Weeks 98687-39687 mU/mL 12-14 Lwxuz92839-02533 mU/mL 15-16 Weeks 8240-85510 mU/mL 17-18 WeeksCMP: (JENN: 01/12/2021 00:25) ( [...] Male GFR Interprentation 20-49 yrs >60 mL/min Jjceqd99-88 yrs >56 mL/min Normal 60- 69 yrs >49 mL/min Normal 70-79yrs>42 mL/min Normal 80 and above >35 mL/min Normal Female GFRInterpretation 20-39 yrs >60 mL/min Normal 40-49 yrs >58 mL/minNormal 50-59 yrs >51 mL/min Normal 60-69 yrs >45 mL/min Agngpx58-07 yrs >39 mL/min Normal 80 and above [...] 80.0) 4 Clinical Report - Physicians/Mid Levels [facility] Emergency Department [address] [place] [address] Phone #: ext- [phone] 01/11/2021 23:07 Patient: [...] REQUEST.. 5 Clinical Report - Physicians/Mid Levels [facility] Emergency Department [address] [place] [address] Phone #: ext- [phone] 01/11/2021 23:07 Patient: [...] times and had 2 beers 1 hour [employer] and she started having burning sensation on her tongue and throat . denies nausea or vomiting. she 6 Clinical Report - Physicians/[facility] Emergency Department [address] [place] [address] Phone #: ext- [phone] 01/11/2021 23:07 Patient: [...] Drug use: 7 Clinical Report - Physicians/[facility] Emergency Department [address] [place] [address] Phone #: ext- [phone] 01/11/2021 23:07 Patient: [...] EKGLaboratory Tests: ETOH: (JENN: 01/12/2021 00:25) ( [facility] 01/12/[facility]21 01:14) Final results Test Result Flag Units (Reference) ALCOHOL <10.0 MG/DL ALCOHOL % 0.00 % (0.00 - 0.01) *FOR MEDICAL PURPOSES ONLY* Beta-HCG, Quant Serum: (JENN: 01/12/2021 00:25) ( [facility] 01/12/2021 01:04) Final results Test Result Flag Units (Reference) HCG QUANT <0.5 mIU/mL Interpretation: Less than 5 mU/mL: Negative 6-10 mU/mL: Borderline (suggest repeat in 48 hours) >10: Positive Approx HCG range (mU/mL) Weeks post LMP 5.4-708 mU/mL 3-4 Weeks 217-98094 mU/mL 5-6 Weeks 4059-354460 mU/mL 7-8 Weeks 83531-517575 mU/mL 9-10 Weeks 48881-54840 mU/mL 12-14 Weeks 05033-78464 mU/mL 15-16 Weeks 8240-54780 mU/mL 17-18 Weeks CMP: (JENN: 01/12/2021 00:25) ( [facility] 01/12/2021 01:14) Final results Test Result Flag Units (Reference) COMPREHENSIVE METABOLIC PANEL COMPREHENSIVE METABOLIC PANEL SODIUM 138 mEq/L (134 - 153) POTASSIUM 4.5 mEq/L (3.6 - 5.0) 8 Clinical Report - Physicians/Mid Levels [facility] Emergency Department [address] [place] [address] Phone #: ext- [phone] 01/11/2021 23:07 Patient: [...] Male GFR Interprentation 20-49 yrs >60 mL/min Qwktnk75-33 yrs >56 mL/min Normal 60-69 yrs >49 mL/min Normal 70-79yrs>42 mL/min Normal 80 and above >35 mL/min Normal Female GFRInterpretation 20-39 yrs >60 mL/min Normal 40-49 yrs >58 mL/minNormal 50-59 yrs >51 mL/min Normal 60-69 yrs >45 mL/min Ejrtwo86- 79 yrs >39 mL/min Normal 80 and [...] results 9 Clinical Report - Physicians/Mid Levels [facility] Emergency Department [address] [place] [address] Phone #: ext- [phone] 01/11/2021 23:07 Patient: BRUNA LEE Sex: F [...] Haldol 10 Clinical Report - Physicians/Mid Levels [facility] Emergency Department [address] [place] [address] Phone #: ext- [phone] 01/11/2021 23:07 Patient: BRUNA LEE Sex: F : 1985 Age: 35y 03:53 01/12/21. Patient cleared medically. awaiting psych transfer 07:30 01/12/21. care assumed at shift change; H, workup all reviewed; waiting for [facility] psych to call back since [facility] is on psych diversion; pt sleeping comfo rtably 11:33 01/12/21. case discussed w Dr. Martinez, psychiatrist, and A[employer] Stewart, LIFE SKILLS SPECIALIST, at [facility] who asked me to reassess pt which [...] police called, and pt brought down to [facility] by force for her safety and safety [...] and alternatives to transfer explained. Transferred to [facility]. Summary of care (CCDA) provided to transport team and transfer facility. CPEP. 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 01/12/2021 18:45) Name Value Range Interpretation Code Description Data [place] rce(s) Supporting Document(s) ID Date Data Source [id number] 01/13/2021 08:04:10 AM [facility]FORMATIONPatient MRN Name Date of Age Gend*PT [id number] Bruna Lee 1985 35 years F CPET Location Admission Date/Time Visit ID Attending [id number] 01/12/21 1636 --- Petr Hood MD([id number]) EPI ID CSN Admitting Provider [id number] ---CPEP Discharge NotePatient Name: Bruna ComePatient at CPEP: 01/12/21 1421Date and Time of Assessment: 01/13/2021, 8:02 [facility] Complaint:Chief ComplaintPatient presents with Psychiatric Evaluation Pt transfer from [place] after meth use and being paranoid. Pt extremely medaffected upon arrival and unable to participate in triage (recieved 50mgbenedryl, 4mg atvian, and 10mg haldol at 1139 per EMS). SILVA SI/HI/AVHAge: 35 yearsRace: White or CaucasianGender: femaleChart Reviewed and Patient ExaminedDischarge to: HomeHistory of Present IllnessPatient InfoHistory provided by: (Patton)History limited by: condition of the patientLanguage lunch cook used?: NoHPI: Mental Health ProblemPresenting Symptoms: anxiety, [...] PATTERN OF ABSTINANCE Comments methamphetamine unknown per [place] documentation alcohol occasional per [place] documentationHistory reviewed. No pertinent family history.Social HistoryTobacco [...] IntactRecent Memory: IntactInsight: FairJudgment: FairOrientation: Appropriately Oriented z3Ayofrwat Toward Examiner: CooperativeAssociations: No loosening evidentFund of [...] abuse treatment and MCOProgress Towards DischargeBilling Code: [id number] signed Kim Hood MD01/13/21 0804 Name Value Range Interpretation Code Description Data [place] rce(s) Supporting Document(s) ID Date Data Source [id number] 01/12/2021 04:47:00 PM EST [facility]FORMATIONPatient MRN Name Date of Age Gend*PT [id number] Bruna Lee 1985 35 years F CPEPPT Location Admission Date/Time Visit ID Attending ProviderNONE 01/12/21 1636 --- Apurva Patton MD([id number]) EPI ID CSN Admitting Provider [id number] ---CPEP PSYCHIATRIC ASSESSMENTPatient Name: Bruna Welch at CPEP: 01/12/21 1421Psychiatrist First Contact: Yes (01/12/21 1616 : Apurva Patton MD)Chief ComplaintChief ComplaintPatient presents with Psychiatric Evaluation Pt transfer from [place] after meth use and being paranoid. Pt extremely medaffected upon arrival and unable to participate in triage (recieved 50mgbenedryl, 4mg atvian, and 10mg haldol at 1139 per EMS). SILVA SI/HI/AVHCurrent StressorsHistory of Present Vakywnq13-ymos-hvi white female admitted due to escalating behavioral [...] policeHistory limited by: condition of the patientLanguage lunch cook used?: NoHPI: Mental Health ProblemPresenting Symptoms: anxiety, [...] PATTERN OF ABSTINANCE Comments methamphetamine unknown per [place] documentation alcohol occasional per [place] documentationFamily HistoryHistory reviewed. No pertinent family history.Social HistorySocial HistoryTobacco Use Smoking status: Current Every Day Smoker Smokeless tobacco: Never UsedSubstance Use Topics Alcohol use: Not on file Drug use: Not on fileSocial HistorySubstance and Sexual ActivitySexual Activity Not on fileRelationships and Living SituationRelationship StatusRelationship Status: (silva pt med affected)Sexual PreferenceSexual Preference: None SpecifiedParental StatusParental Status: UnknownResidence/HomelessResides in : Homeless (per [place])Was the patient homeless at any time within [...] No changes [] No side effectsBilling Code: [id number] signed byApurva Patton MD01/12/21 164 Name Value Range Interpretation Code Description Data [place] rce(s) Supporting Document(s) ID Date Data Source [id number] 01/12/2021 07:45:00 AM EST [facility] Name Value Range Interpretation Code Description Data [place] rce(s) Supporting Document(s) COVID19 Case rprt NOT DETECTED [facility] This lab was ordered by [facility] and reported by [facility]. ID Date Data Source [id number] 01/12/2021 09:44:00 AM [facility] NOT DETECTEDNOT DETECTED{ PROC EDURAL CONTROL [...] rce(s) Supporting Document(s) ID Date Data Source [id number] 01/12/2021 07:46:00 AM [facility] Name Value Range Interpretation Code Description Data [place] rce(s) Supporting Document(s) SALICYLATE <0.3 mg/dL 2.0 - 20.0 L [facility] ID Date Data Source [id number] 01/12/2021 07:45:00 AM [facility] Name Value Range Interpretation Code Description Data [place] rce(s) Supporting Document(s) Acetaminophen [Presence] in Urine <5.0 UG/ML 0.0 - 30.0 [facility] ID Date Data Source [id number] 01/12/2021 01:14:00 AM [facility] Name Value Range Interpretation Code Description Data [place] rce(s) Supporting Document(s) Ethanol [Moles/volume] in Blood <10.0 MG/DL [facility] ALCOHOL % 0.00 % 0.00 - 0.01 [facility] ital *FOR MEDICAL PURPOSES ONLY * ID Date Data Source [id number] 01/12/2021 01:14:00 AM EST [facility] Name Value Range Interpretation Code Description Data [place] rce(s) Supporting Document(s) COMPREHENSIVE METABOLIC PANEL [facility] COMPREHENSIVE METABOLIC PANEL Sodium [Moles/volume] in Serum or Plasma 138 mEq/L 134 - 153 [facility] Potassium [Moles/volume] in Serum or Plasma 4.5 mEq/L 3.6 - 5.0 [facility] Chloride [Moles/volume] in Serum or Plasma 100 mEq/L 98 - 107 [facility] Carbon dioxide, total [Moles/volume] in Serum or Plasma 26 MEQ/L 22 - 30 [facility] Glucose [Mass/volume] in Serum or Plasma 133 MG/DL 70 - 99 H [facility] BUN 11 MG/DL 7 - 21 [facility] al Creatinine [Mass/volume] in Serum or Plasma 0.6 MG/DL 0.7 - 1.5 L [facility] BUN/CREAT 18 8 - 27 [facility] al Protein [Mass/volume] in Serum or Plasma 7.6 G/DL 6.3 - 8.2 [facility] Albumin [Mass/volume] in Serum or Plasma 4.9 G/DL 3.9 - 5.0 [facility] Globulin [Mass/volume] in Serum by calculation 2.7 GM/DL 2.4 - 3.2 [facility] A/G RATIO 1.8 0.8 - 2.0 [facility] Calcium [Mass/volume] in Serum or Plasma 10.1 MG/DL 8.4 - 10.2 [facility] Bilirubin.total [Mass/volume] in Serum or Plasma <0.7 MG/DL 0.2 - 1.3 [facility] Alkaline phosphatase [Enzymatic activity/volume] in Serum or Plasma 79 U/L 38 - 126 [facility] Aspartate aminotransferase [Enzymatic activity/volume] in Serum or Plasma 59 U/L 5 - 40 H [facility] Alanine aminotransferase [Enzymatic activity/volume] in Seru m or Plasma 32 U/L 7 - 56 [facility] Anion gap 3 in Serum or Plasma 12.0 mmol/L 8.0 - 16.0 [facility] AGE 35 yrs [facility] NON-AA GFR >60 mL/min [facility] ital AFR AMER GFR >60 mL/min [facility] Male GFR In terprentation [...] >32 mL/min Normal ID Date Data Source [id number] 01/12/2021 01:04:00 AM EST [facility] Name Value Range Interpretation Code Description Data [place] rce(s) Supporting Document(s) Choriogonadotropin.intact [Units/volume] in Serum or Plasma <0.5 mIU/ mL [facility] Interpr etation: Less than 5 mU/mL: Negative 6-10 mU/mL: Borderline (suggest repeat in 48 hours) >10: Positive Approx HCG range (mU/mL) Weeks post LMP 5.4-708 mU/mL 3-4 Weeks 217-10451 mU/mL 5-6 Weeks 4059-798829 mU/mL 7-8 Weeks 30977-832665 mU/mL 9-10 Weeks 40480-99959 mU/mL 12-14 Weeks 89728-20964 mU/mL 15-16 Weeks 8240- 33910 mU/mL 17-18 Weeks ID Date Data Source [id number] 01/12/2021 12:43:00 AM EST [facility] Name Value Range Interpretation Code Description Data [place] rce(s) Supporting Document(s) CBC W/AUTOMATED DIFF [facility] COMPLETE BLOOD COUNT Leukocytes [#/volume] in Blood by Automated count 10.7 10^3/uL 4.2 - 11.0 [facility] Erythrocytes [#/volume] in Blood by Automated count 4.03 10^6/uL 4. 20 - 5.40 L [facility] Hemoglobin [Mass/volume] in Blood 12.4 g/dL 12.0 - 16.0 [facility] Hematocrit [Volume Fraction] of Blood by Automated count 36.6 % 3 7.0 - 47.0 L [facility] Erythrocyte mean corpuscular volume [Entitic volume] by Auto mated count 90.8 fL 81.0 - 101 [facility] Erythrocyte mean corpuscular hemoglobin [Entitic mass] by Automated count 30.8 pg 27.0 - 34.0 [facility] Erythrocyte mean corpuscular hemoglobin concentration [Mass/volume] by Automated count 33.9 g/dL 31.0 - 36.0 [facility] Erythrocyte distribution width [Ratio] by Automated count 13.2 % 11.5 - 14.5 [facility] Platelets [#/volume] in Blood by Automated count 361 10^3/uL 150 - 45 0 [facility] Platelet mean volume [Entitic volume] in Blood by Automated count 9.5 fL 7.4 - 10.4 [facility] Neutrophils/100 leukocytes in Blood by Automated count 70.5 % 37. 0 - 80.0 [facility] Lymphocytes/100 leukocytes in Blood by Manual count 20.2 % 25.0 - 40.0 L [facility] Monocytes/100 leukocytes in Blood by Automated count 7.8 % 3.0 - 8.0 [facility] Eosinophils/100 leukocytes in Blood by Automated count 0.3 % 0.0 - 7.0 [facility] Basophils/100 leukocytes in Blood by Automated count 0.5 % 0.0 - 2.5 [facility] %IG 0.7 % 0.0 - 0.0 [facility] %NRBC 0.0 % 0.0 - 0.0 [facility] al Neutrophils [#/volume] in Blood by Automated count 7.53 10^3/uL 2.00 - 6.90 H [facility] Lymphocytes [#/volume] in Blood by Automated count 2.16 10^3/uL 0.60 - 3.40 [facility] Monocytes [#/volume] in Blood by Automated count 0.83 10^3/uL 0.00 - 0.90 [facility] Eosinophils [#/volume] in Blood by Automated count 0.03 10^3/uL 0.00 - 0.70 [facility] Basophils [#/volume] in Blood by Automated count 0.05 10^3/uL 0.00 - 0.20 [facility] #IG 0.07 10^3/uL 0.00 - 0.10 [facility] #NRBC 0.00 10^3/uL 0.00 - 0.00 [facility] ospital MANUAL DIFF NOT INDICATED [facility] RBC MORPH NOT INDICATED [facility] ID Date Data Source [id number] 01/12/2021 01:29:00 AM EST [facility] Name Value Range Interpretation Code Description Data [place] rce(s) Supporting Document(s) DRUG SCREEN URINE [facility] URINE DRUG SCREEN Amphetamine [Presence] in Urine by Screen method PRESUMP POS ZAYNAB L: NEGATIVE [facility] BARBITURATES NEGATIVE NORMAL: NEGATIVE [facility] BENZO NEGATIVE NORMAL: NEGATIVE [facility] COCAINE NEGATIVE NORMAL: NEGATIVE [facility] Tetrahydrocannabinol [Presence] in Urine NEGATIVE NORMAL: NEGATIVE [facility] OPIATES NEGATIVE NORMAL: NEGATIVE [facility] Phencyclidine [Presence] in Urine by Screen method NEGATIVE NOR MAL: NEGATIVE [facility] \\BLDo\\URINE DRUG SCR EEN INTERPRETATION\\BLDx\\ THE CUTOFFF LEVELS FOR DETECTION ARE FOLLOWS: AMPHETAMINES 1000 ng/ml BARBITUARATES 200 ng/ml BENZODIAZEPINES 100 ng/ml THC 50 ng/ml PHENCYCLIDINE 25 ng/ml OPIATES 300 ng/ml COCAINE 300 ng/ml ALL POSITIVES ARE CONSIDERED PRESUMPTIVE POSITIVE CONFIRMATION WILL BE PERFORMED AT PHYSICIAN REQUEST. ID Date Data Source [id number] 01/12/2021 01:21:00 AM EST [facility] Name Value Range Interpretation Code Description Data [place] rce(s) Supporting Document(s) UA REFLEX TO UA CULTURE [facility] URINALYSIS SOURCE R [facility] COLOR Lt Yellow NORMAL: Yellow [facility] ospital CLARITY clear NORMAL: Clear [facility] Specific gravity of Urine by Test strip 1.005 1.001 - 1.030 [facility] pH 7 5 - 9 [facility] Glucose [Mass/volume] in Urine by Test strip NORM NORMAL: Negat merari [facility] Bilirubin.total [Presence] in Urine by Test strip NEG NORMAL: Negative [facility] Ketones [Presence] in Urine by Test strip NEG NORMAL: Negative [facility] Protein [Mass/volume] in Urine by Test strip NEG NORMAL: Negat merari [facility] Nitrite [Presence] in Urine by Test strip NEG NORMAL: Negative [facility] BLOOD NEG NORMAL: Negative [facility] Leukocyte esterase [Presence] in Urine by Test strip NEG ZAYNAB L: Negative [facility] Urobilinogen [Mass/volume] in Urine by Test strip NOR less kenna n 1.0 mg/dL [facility] MICROSCOPIC Not Indicate [facility] ID Date Data Source [id number] 12/27/2020 08:52:00 AM EDT [facility] Name Value Range Interpretation Code Description Data [place] rce(s) Supporting Document(s) SARS coronavirus 2 RNA [Presence] in Res piratory specimen by MARK with probe detection NEGATIVE [facility] This lab was ordered by [facility] a nd reported by [facility]. ID Date Data Source [id number] 11/07/2020 04:47:00 AM EDT [facility] Name Value Range Interpretation Code Description Data [place] rce(s) Supporting Document(s) SARS coronavirus 2 RNA [Presence] in Res piratory specimen by MARK with probe detection NEGATIVE [facility] This lab was ordered by [facility] a nd reported by [facility]. ID Date Data Source [id number] 11/03/2020 11:35:00 AM EDT [facility] 1 OrderSheet [facility] Emergency Department [address] [place] [address] Phone #: ext- [phone] 11/03/2020 11:35 Patient: [...] M.D.;UA Reflex to UA 14:14 11/03/2020 14:44 [facility] Evonne Hagen Tiffany ER M.D.; [id number] Acid STAT 14:14 11/03/2020 14:24 Evonne Bhatti [...] 25 mg M.D.;(NOW x1, HIGH 2 OrderSheet [facility] Department [address] [place] [address] Phone #: ext- [phone] 11/03/2020 11:35 Patient: BRUNA LEE Sex: F [...] rce(s) Supporting Document(s) ID Date Data Source [id number] 11/03/2020 11:35:00 AM EDT [facility] 1 Medication Reconciliation Report [facility] Department [address] [place] [address] Phone #: ext- [phone] 11/03/2020 11:35 Patient: [...] Range Interpretation Code Description Data [facility](s) Supporting Document(s) ID Date Data Source [id number] 11/03/2020 11:35:00 AM EDT [facility] 1 Medication Administration Record [facility] Emergency Department [address] [place] [address] Phone #: ext- [phone] 11/03/2020 11:35 Patient: [...] rce(s) Supporting Document(s) ID Date Data Source [id number] 11/03/2020 11:35:00 AM EDT [facility] 1 General Instructions [facility] Emergency Department [address] [place] [address] Phone #: ext- [phone] 11/03/2020 11:35 Patient: [...] ADDITIONAL INFORMATIONViral Diarrhea (Adult) 2 General Instructions [facility] Department [address] [place] [address] Phone #: owa- [phone] 11/03/2020 11:35 Patient: BRUNA LEE Sex: F [...] replace what is lost. 3 General Instructions [facility] Emergency Department [address] [place] [address] Phone #: ext- [phone] 11/03/2020 11:35 Patient: BRUNA LEE Sex: F : 1985 Age: 35yAntibiotics are not effective in this illness, but there are a number of things you can do at home thatwill help.Home careFollow these home care measures: If symptoms are severe, rest at home for the next 24 hours or until you are feeling better. Wash your hands with soap and water or alcohol-based woven blind loom tender to prevent the spread of infection. Wash [...] Keep uncooked meats away from cooked and ptzkn-qx-uuv foods.Medicines: You may use acetaminophen or NSAIDS [...] cramping, and pain worse. 4 General Instructions [facility] Department [address] [place] [address] Phone #: ext- [phone] 11/03/2020 11:35 Patient: [...] to seek medical advice 5 General Instructions [facility] Department [address] [place] [address] Phone #: ext- [phone] 11/03/2020 11:35 Patient: BRUNA LEE Sex: F [...] or as directed by your healthcare provider [facility] 911Call 911 if any of the following occur: Trouble breathing Confused Severe drowsiness or trouble awakening Fainting or loss of consciousness Rapid heart rate Seizure Stiff neck [id number] [facility] [place] [address]. All rights reserved. This information is not intended as asubstitute for professional medical care. Always follow your healthcare professional's instructions.Unknown Causes of Abdominal Pain (Female) 6 General Instructions [facility] Emergency Department [address] [place] [address] Phone #: ext- [phone] 11/03/2020 11:35 Patient: [...] for taking these medicines. 7 General Instructions [facility] Emergency Department [address] [place] [address] Phone #: ext- [phone] 11/03/2020 11:35 Patient: BRUNA LEE Sex: F : 1985 [facility]: 35[facility] Rest as much as you can [...] begin to improve in thenext 24 hours.Call [phone] [phone] if any of these occur: Trouble breathing Confusion Fainting or loss of consciousness Rapid heart rate 8 General Instructions [facility] Emergency Department [address] [place] [address] Phone #: ext- [phone] 11/03/2020 11:35 Patient: BRUNA LEE Sex: F [...] or water and you are getting dehydrated [id number] [employer]. [address] [place] [address]. All rights reserved. This information is not [...] feel: Helpless Nervous Depressed 9 General Instructions [facility] Emergency Department [address] [place] [address] Phone #: ext- [phone] 11/03/2020 11:35 --- [...] (Avoid hassles, limit the 10 General Instructions [facility] Emergency Department [address] [place] [address] Phone #: ext- [phone] 11/03/2020 11:35 Patient: [...] to seek medical advice 11 General Instructions [facility] Department [address] [place] [address] Phone #: ext- [phone] 11/03/2020 11:35 Patient: BRUNA LEE Sex: F : 1985 Age: 35yCall your healthcare provider right away if any of these happen: Your symptoms get worse Severe headache not relieved by rest and mild pain reliever [facility]. [address] [place] [address]. All rights reserved. This information is not intended as asubstitute for professional medical care. Always follow your healthcare professional's instructions. You have been given the following additional information: Diarrhea, Viral (Adult) Abdominal Pain, Unknown Cause, (Female) Anxiety Reaction(Electronically signed by Evonne Hagen M.D. 11/03/2020 18:01) Name Value Range Interpretation Code Description Data [place] rce(s) Supporting Document(s) ID Date Data Source [id number] 11/03/2020 11:35:00 AM EDT [facility] 1 Clinical Report - Nurses [facility] Emergency Department [address] [place] [address] Phone #: ext- [phone] 11/03/2020 11:35 Patient: BRUNA LEE Sex: F : 1985 Age: 35yTRIAGEArrived by EMS. Historian: patient.Acuity: LEVEL 3.Chief Complaint: ABDOMINAL PAIN and DIARRHEA.Onset. (6 months ago). ( pt states she was supposed to go to methadone appointment today but herabdomen is been bothering for quite some time, she reports abdominal pain, n/v/d, sore throat and multipleissues).Treatment PIANO INSTRUCTOR:Took Tylenol. (1030).EMS Treatment PIANO INSTRUCTOR:EMS treatment verbally communicated and report reviewed. See [...] Quiroz RN. 2 Clinical Report - Nurses [facility] Emergency Department [address] [place] [address] Phone #: ext- [phone] 11/03/2020 11:35 Patient: [...] treatment room. --13:59 11/03/20 Genaro Quiroz RN.PHYSICAL [id number] 11/03/20. To room via wheelchair.GENERAL / NEURO [...] Davis RN. 3 Clinical Report - Nurses [facility] Emergency Department [address] [place] [address] Phone #: ext- [phone] 11/03/2020 11:35 Patient: BRUNA LEE Sex: F [...] F. Pain level now 08/05. --15:10 11/03/20 [facility] veterinary technician, [facility] Tech1 15:25 11/03/20. Condition at departure: stable. No learning barriers present. Discharge instructions provided and reviewed with the patient. Patient verbalized understanding. Written instructions provided in Jamaican. The patient was discharged home. She left ambulatory and via private vehicle. Patient driving. --15:11/03/20 Sayda Davis RN.Locked/Released at 11/03/2020 15:29 by Sayda Davis RN Name Value Range Interpretation Code Description Data [place] rce(s) Supporting Document(s) ID Date Data Source [id number] 11/03/2020 11:35:00 AM EDT [facility] 1 Clinical Report - Physicians/Mid Levels [facility] Emergency Department [address] [place] [address] Phone #: ext- [phone] 11/03/2020 11:35 [id number] Sex: F : 1985 Age: 35y Time [...] Disease. 2 Clinical Report - Physicians/Mid Levels [facility] Emergency Department [address] [place] [address] Phone #: ext- [phone] 11/03/2020 11:35 Patient: [...] results 3 Clinical Report - Physicians/Mid Levels [facility] Department [address] [place] [address] Phone #: ext- [phone] 11/03/2020 11:35 Patient: BRUNA LEE Sex: F [...] Male GFR Interprentation 20-49 yrs >60 mL/min Sfgput95-34 yrs >56 mL/min Normal 60-69 yrs >49 mL/min Normal 70-79yrs>42 mL/min Normal 80 and above >35 mL/min Normal Female GFRInterpretation 20-39 yrs >60 mL/min Normal 40-49 yrs >58 mL/min 4 Clinical Report - Physicians/Mid Levels [facility] Emergency Department [address] [place] [address] Phone #: ext- [phone] 11/03/2020 11:35 Patient: [...] TO UA CULTURE: (JENN: 11/03/2020 14:30) ( [facility] 11/03/2020 14:37) Final results Test Result Flag [...] Indicate Lactic Acid: (JENN: 11/03/2020 14:18) ( [facility] 11/03/2020 14:30) Final results Test Result Flag Units (Reference) LACTIC ACID 1.0 MMOL/L (0.2 - 2.2) Beta-HCG, Qual Seru m: (JENN: 11/03/2020 14:18) ( [facility] 11/03/2020 14:45) Final results Test Result Flag Units (Reference) HCG SERUM QUAL NEGATIVE (NORMAL: NEGAT HCG SERUM QL REENTER NEGATIVE (NORMAL: NEGAT { KIT LOT # [id number] ){ KIT EXP DATE 02.25.22 ){ PROCEDURAL [...] accurately reflects the information as submitted by [facility]. This report was requested by: Evonne Hagen Reference #: [id number] 5 Clinical Report - Physicians/Mid Levels [facility] Emergency Department [address] [place] [address] Phone #: ext- [phone] 11/03/2020 11:35 Patient: BRUNA LEE Sex: F : 1985 Age: 35yOthers' PrescriptionsPatient Name: Bruna LeeBirth Date: 1985Address: [address] [place] [id number]: FemaleRx Written Rx Dispensed Drug Quantity Days Supply Prescriber Name Prescriber Shiloh # Payment [id number]/10/2021 05/05/2020 buprenorphine-naloxone 8-2 mg sl film 56 28 Jose J Mao MD, [id number] [facility] #8004/07/2020 04/07/2020 buprenorphine-naloxone 8-2 mg sl film 56 28 Jose J Moa MD, [id number] [facility] #15003/03/2020 03/03/2020 buprenorphine-naloxone 8-2 mg sl film 56 28 Jose J Mao MD [id number] [facility] #15104/05/2019 02/03/2020 buprenorphine-naloxone 8-2 mg sl film 56 28 Jose J Mao MD04Medicaid [facility] #15103/02/2019 01/02/2020 buprenorphine-naloxone 8-2 mg sl film 56 28 Jose J Mao MD04Medicaid [facility] #15Patient Name: Bruna LeeBirth Date: 1985Address: [address] [place], [place] [address]Cxf: FemaleRx Written Rx Dispensed Drug Quantity Days Supply Prescriber Name Prescriber Shiloh # Payment [id number]/07/2020 12/03/2019 buprenorphine-naloxone 8-2 mg sl film 56 28 Jose J Mao MD [id number] [facility] #80911/21/2019 vyvanse 50 mg capsule 15 15 Karolyn Van ([facility] [facility] [id number] [facility]2019 clonazepam 0.5 mg tablet 7 7 Karolyn Van ([facility]) [id number] [facility]Patient Name: Bruna LeeBirth Date: 1985Address: [address], [place] [address]Kwf: FemaleRx Written Rx Dispensed Drug Quantity Days Supply Prescriber Name Prescriber Shiloh # Payment LioxncOhpjuinom24/07/2021 09/01/2020 buprenorphine- naloxone 8-2 mg sl film 28 14 Jose J Mao MD [id number] #15008/18/2020 08/18/2020 buprenorphine-naloxone 8-2 mg sl film 28 14 Jose J Mao MD [id number] #15007/14/2020 07/21/2020 buprenorphine-naloxone 8-2 mg sl film 56 28 Jose J Mao MD [id number] icaid [facility] #15006/24/2020 06/24/2020 buprenorphine-naloxone 8-2 mg sl film 56 28 Jose J Mao MD [id number] #15* - Drugs marked with an asterisk are compound drugs. If the compound drug is made up of more than onecontrolled substance, then each controlled substance will be a separate row in the table. 6 Clinical Report - Physicians/Mid Levels [facility] Emergency Department [address] [place] [address] Phone #: ext- [phone] 11/03/2020 11:35 Patient: BRUNA LEE Sex: F : 1985 Age: 35y 15:08 11/03/20. workup all in and reviewed and nml; pt started to get anxious and swearing, was told to lower her voice or else we would call police, and she did for now; will give some ativan and d/c home; pt advised to f/u w [employer], she undertsands. Patient counseled in person regarding [...] if 7 Clinical Report - Physicians/Mid Levels [facility] Emergency Department [address] [place] [address] Phone #: ext- [phone] 09/08/2021 11:35 [id number] Sex: F : 1985 Age: 35y not [...] rce(s) Supporting Document(s) ID Date Data Source [id number] 11/03/2020 02:36:00 PM EDT [facility] Name Value Range Interpretation Code Description Data [place] rce(s) Supporting Document(s) UA REFLEX TO UA CULTURE [facility] URINALYSIS SOURCE R [facility] COLOR yellow NORMAL: Yellow [facility] CLARITY clear NORMAL: Clear [facility] Specific gravity of Urine by Test strip 1.010 1.001 - 1.030 [facility] pH 7 5 - 9 [facility] Gl[facility] [Mass/volume] in Urine by Test strip NORM NORMAL: Negat [facility] Bilirubin.total [Presence] in Urine by Test strip NEG NORMAL: Negative [facility] Ketones [Presence] in Urine by Test strip NEG NORMAL: Negative [facility] Protein [Mass/volume] in Urine by Test strip NEG NORMAL: Negat [facility] Nitrite [Presence] in Urine by Test strip NEG NORMAL: Negative [facility] BLOOD NEG NORMAL: Negative [facility] Leukocyte esterase [Presence] in Urine by Test strip NEG ZAYNAB L: Negative [facility] Urobilinogen [Mass/volume] in Urine by Test strip NOR less kenna n 1.0 mg/dL [facility] MICROSCOPIC Not Indicate [facility] ID Date Data Source [id number] 11/03/2020 02:56:00 PM EDT [facility] Name Value Range Interpretation Code Description Data [place] rce(s) Supporting Document(s) Lipase [Enzymatic activity/volume] in Serum or Plasma 10 U/L 13 - 60 L [facility] ID Date Data Source [id number] 11/03/2020 02:56:00 PM EDT [facility] Name Value Range Interpretation Code Description Data [place] rce(s) Supporting Document(s) COMPREHENSIVE METABOLIC PANEL [facility] COMPREHENSIVE METABOLIC PANEL Sodium [Moles/volume] in Serum or Plasma 136 mEq/L 134 - 153 [facility] Potassium [Moles/volume] in Serum or Plasma 4.2 mEq/L 3.6 - 5.0 [facility] Chloride [Moles/volume] in Serum or Plasma 100 mEq/L 98 - 107 [facility] Carbon dioxide, total [Moles/volume] in Serum or Plasma 25 MEQ/L 22 - 30 [facility] Glucose [Mass/volume] in Serum or Plasma 140 MG/DL 70 - 99 H [facility] BUN 12 MG/DL 7 - 21 [facility] al Creatinine [Mass/volume] in Serum or Plasma 0.5 MG/DL 0.7 - 1.5 L [facility] BUN/CREAT 24 8 - 27 [facility] Protein [Mass/volume] in Serum or Plasma 7.1 G/DL 6.3 - 8.2 [facility] Albumin [Mass/volume] in Serum or Plasma 4.6 G/DL 3.9 - 5.0 [facility] Globulin [Mass/volume] in Serum by calculation 2.5 GM/DL 2.4 - 3.2 [facility] A/G RATIO 1.8 0.8 - 2.0 [facility] Calcium [Mass/volume] in Serum or Plasma 9.8 MG/DL 8.4 - 10.2 [facility] Bilirubin.total [Mass/volume] in Serum or Plasma <0.7 MG/DL 0.2 - 1.3 [facility] Alkaline phosphatase [Enzymatic activity/volume] in Serum or Plasma 111 U/L 38 - 126 [facility] Aspartate aminotransferase [Enzymatic activity/volume] in Serum or Plasma 74 U/L 5 - 40 H [facility] Alanine aminotransferase [Enzymatic activity/volume] in Seru m or Plasma 91 U/L 7 - 56 H [facility] Anion gap 3 in Serum or Plasma 11.0 mmol/L 8.0 - 16.0 [facility] AGE 35 yrs [facility] NON-AA GFR >60 mL/min [facility] AFR AMER GFR >60 mL/min [facility] Male GFR In terprentation [...] >32 mL/min Normal ID Date Data Source [id number] 11/03/2020 02:44:00 PM EDT [facility] Name Value Range Interpretation Code Description Data [place] rce(s) Supporting Document(s) HCG SERUM QUAL NEGATIVE NORMAL: NEGATIVE [facility] HCG SERUM QL REENTER NEGATIVE NORMAL: NEGATIVE [facility] { KIT LOT # [id number] ){ KIT EXP DATE 02.25.22 ){ PROCEDURAL CONTROL VALID ) ID Date Data Source [id number] 11/03/2020 02:30:00 PM EDT [facility] Name Value Range Interpretation Code Description Data [place] rce(s) Supporting Document(s) Lactate [Moles/volume] in Serum or Plasma 1.0 MMOL/L 0.2 - 2.2 [facility] ID Date Data Source [id number] 11/03/2020 02:28:00 PM EDT [facility] Name Value Range Interpretation Code Description Data [place] rce(s) Supporting Document(s) CBC W/AUTOMATED DIFF [facility] COMPLETE BLOOD COUNT Leukocytes [#/volume] in Blood by Automated count 6.8 10^3/uL 4.2 - 1 1.0 [facility] Erythrocytes [#/volume] in Blood by Automated count 3.89 10^6/uL 4. 20 - 5.40 L [facility] Hemoglobin [Mass/volume] in Blood 11.6 g/dL 12.0 - 16.0 L [facility] Hematocrit [Volume Fraction] of Blood by Automated count 35.3 % 3 7.0 - 47.0 L [facility] Erythrocyte mean corpuscular volume [Entitic volume] by Auto mated count 90.7 fL 81.0 - 101 [facility] Erythrocyte mean corpuscular hemoglobin [Entitic mass] by Automated count 29.8 pg 27.0 - 34.0 [facility] Erythrocyte mean corpuscular hemoglobin concentration [Mass/volume] by Automated count 32.9 g/dL 31.0 - 36.0 [facility] Erythrocyte distribution width [Ratio] by Automated count 14.0 % 11.5 - 14.5 [facility] Platelets [#/volume] in Blood by Automated count 331 10^3/uL 150 - 45 0 [facility] Platelet mean volume [Entitic volume] in Blood by Automated count 9.7 fL 7.4 - 10.4 [facility] Neutrophils/100 leukocytes in Blood by Automated count 69.7 % 37. 0 - 80.0 [facility] Lymphocytes/100 leukocytes in Blood by Manual count 18.4 % 25.0 - 40.0 L [facility] Monocytes/100 leukocytes in Blood by Automated count 8.5 % 3.0 - 8.0 H [facility] Eosinophils/100 leukocytes in Blood by Automated count 1.8 % 0.0 - 7.0 [facility] Basophils/100 leukocytes in Blood by Automated count 0.9 % 0.0 - 2.5 [facility] %IG 0.7 % 0.0 - 0.0 [facility] %NRBC 0.0 % 0.0 - 0.0 [facility] al Neutrophils [#/volume] in Blood by Automated count 4.74 10^3/uL 2.00 - 6.90 [facility] Lymphocytes [#/volume] in Blood by Automated count 1.25 10^3/uL 0.60 - 3.40 [facility] Monocytes [#/volume] in Blood by Automated count 0.58 10^3/uL 0.00 - 0.90 [facility] Eosinophils [#/volume] in Blood by Automated count 0.12 10^3/uL 0.00 - 0.70 [facility] Basophils [#/volume] in Blood by Automated count 0.06 10^3/uL 0.00 - 0.20 [facility] #IG 0.05 10^3/uL 0.00 - 0.10 [facility] #NRBC 0.00 10^3/uL 0.00 - 0.00 [facility] ospital MANUAL DIFF NOT INDICATED [facility] RBC MORPH NOT INDICATED [facility] ID Date Data Source [id number] 10/20/2020 01:50:00 PM EDT [facility] Name Value Range Interpretation Code Description Data [place] rce(s) Supporting Document(s) SARS coronavirus 2 RNA [Presence] in Res piratory specimen by MARK with probe detection NEGATIVE [facility] This lab was ordered by [facility] a nd reported by [facility]. ID Date Data Source [id number] 10/19/2020 03:31:00 AM EDT [facility] Name Value Range Interpretation Code Description Data [place] rce(s) Supporting Document(s) SARS coronavirus 2 RNA [Presence] in Res piratory specimen by MARK with probe detection NEGATIVE [facility] This lab was ordered by [facility] a nd reported by [facility]. ID Date Data Source [id number] 10/08/2020 11:37:00 AM EDT [facility] Name Value Range Interpretation Code Description Data [place] rce(s) Supporting Document(s) SARS coronavirus 2 RNA [Presence] in Res piratory specimen by MARK with probe detection NEGATIVE [facility] This lab was ordered by [facility] a nd reported by [facility]. ID Date Data Source [id number] 10/03/2020 06:06:00 PM EDT [facility] 1 OrderSheet [facility] Emergency Department [address] [place] [address] Phone #: ext- [phone] 10/03/2020 18:05 [id number] Sex: F : 1985 Age: 35yWEIGHT:65.7 kg [...] rce(s) Supporting Document(s) ID Date Data Source [id number] 10/03/2020 06:06:00 PM EDT [facility] 1 Medication Reconciliation Report [facility] Emergency Department [address] [place] [address] Phone #: ext- [phone] 10/03/2020 18:05 Patient: [...] rce(s) Supporting Document(s) ID Date Data Source [id number] 10/03/2020 06:06:00 PM EDT [facility] 1 Medication Administration Record [facility] Emergency Department [address] [place] [address] Phone #: ext [phone] 10/03/2020 18:05 Patient: BRUNA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 Patient: [...] Home Medication information:patient 2 Medication Reconciliation Report [facility] Emergency Department [address] [place] [address] Phone #: ext- [phone] 09/09/2020 16:40 Patient: BRUNA LEE Sex: F : 1985 Age: 35yThe following Medications were given to the patient in the Emergency Department:None.The following Medications were prescribed to the patient:None. Name Value Range Interpretation Code Description Data [facility](s) Supporting Document(s) ID Date Data Source [id number] 09/09/2020 04:46:00 PM EDT [place] [address] Medication Administration Record [facility] Emergency Department [address] [place] [address] Phone #: ext- [phone] 09/09/2020 16:40 Patient: BRUNA LEE Sex: F : 1985 Age: 35yWeight: 68.9 kgHeight/Length: 60 inBMI: 29.7ALLERGIES: Sulfur, Amoxicillin, Penicillins, Bactrim, Certain antipsycoticsDate/Time Medication Administered Medication Ordered Name Value Range Interpretation Code Description Data [place] rce(s) Supporting Document(s) ID Date Data Source [id number] 09/09/2020 04:46:00 PM EDT [facility] 1 General Instructions [facility] Emergency Department [address] [place] [address] Phone #: ext- [phone] 09/09/2020 16:40 Patient: [...] Severe anxiety Feeling unreal 2 General Instructions [facility] Emergency Department [address] [place] [address] Phone #: ext- [phone] 09/09/2020 16:40 Patient: [...] providers about all of the prescription medicines, taxb-kdz-ypyhysb medicines, and supplements you take. Certain supplements [...] operates a toll-free ADA information line at: [phone] (voice) or [phone] (TTY). They can help you locate a local office.Follow-up careFollow up with your doctor or therapist , or as advised.Jae [place] [phone] if you: 3 General Instructions [facility] Emergency Department [address] [place] [address] Phone #: ext- [phone] 09/09/2020 16:40 Patient: [...] yourself or others Worsening depression or anxiety [id number] [employer]. [address] [place] [address]. All rights reserved. This information is not intended as asubstitute for professional medical care. Always follow your healthcare professional's instructions. You have been given the following additional information: Schizophrenia, General(Electronically signed by Zaynab Steven MD 09/11/2020 07:17) 4 General Instructions [facility] Emergency Department [address] [place] [address] Phone #: ext- [phone] 09/09/2020 16:40 Patient: BRUNA LEE Sex: F : 1985 Age: 35y Name Value Range Interpretation Code Description Data [place] rce(s) Supporting Document(s) ID Date Data Source [id number] 09/09/2020 04:46:00 PM EDT [facility] 1 Clinical Report - Nurses [facility] Emergency Department [address] [place] [address] Phone #: ext- [phone] 09/09/2020 16:40 Patient: [...] Succinate Oral. Unknown stomach pill. --22:37 09/09/20 Brnua Farrar R.N.AllergiesPenicillins. --16:43 09/09/20 Zenon ChowinAmoxicillin. --16:43 09/09/20 Zenon ChowinSulfur. --16:44 09/09/20 Amado Chow 2 Clinical Report - Nurses [facility] Emergency Department [address] [place] [address] Phone #: ext- [phone] 09/09/2020 16:40 Patient: [...] factors identified. 3 Clinical Report - Nurses [facility] Emergency Department [address] [place] [address] Phone #: ext- [phone] 09/09/2020 16:40 Patient: [...] yell profanity 4 Clinical Report - Nurses [facility] Emergency Department [address] [place] [address] Phone #: ext- [phone] 09/09/2020 16:40 Patient: BRUNA LEE Sex: F [...] left the Emergency Department ambulatory. ( [facility] [place] [employer]). --22:35 09/09/20 Bruna Farrar R.N. 21:35 [...] rce(s) Supporting Document(s) ID Date Data Source [id number] 09/09/2020 04:46:00 PM EDT [facility] 1 Clinical Report - Physicians/Mid Levels [facility] Emergency Department [address] [place] [address] Phone #: ext- [phone] 09/09/2020 16:40 Patient: BRUNA LEE Sex: F [...] Pain. 2 Clinical Report - Physicians/Mid Levels [facility] Emergency Department [address] [place] [address] Phone #: ext- [phone] 09/09/2020 16:40 Patient: BRUNA LEE Sex: F [...] (Reference) 3 Clinical Report - Physicians/Mid Levels [facility] Emergency Department [address] [place] [address] Phone #: ext- [phone] 09/09/2020 16:40 Patient: BRUNA LEE [facility]#: [id number] Sex: F : 1985 Age: 35y CBC [...] Male GFR Interprentation 20-49 yrs >60 mL/min Btdhyo23-87 yrs >56 mL/min Normal 60-69 yrs >49 mL/min Normal 70-79yrs>42 mL/min Normal 80 and above >35 mL/min Normal Female GFRInterpretation 20-39 yrs >60 mL/min Normal 40-49 yrs >58 mL/minNormal 50-59 yrs >51 mL/min Normal 60-69 yrs >45 mL/min Normal 4 Clinical Report - Physicians/Mid Levels [facility] Emergency Department [address] [place] [address] Phone #: ext- [phone] 09/09/2020 16:40 [id number] Sex: F : 1985 Age: 15u92-98 yrs >39 mL/min Normal 80 and above >32 mL/min NormalUrinalysis: (JENN: 09/09/2020 17:40) ( [facility] 09/09/2020 18:04) Final results Test Result Flag [...] Not IndicateDrug Screen-Urine: (JENN: 09/09/2020 17:40) ( [facility] 09/09/2020 18:19) Final results Test Result Flag [...] PRESUMPTIVE POSITIVE CONFIRMATION WILL BE PERFORMED AT [facility].ETOH: (EJNN: 09/09/2020 17:40) ( [facility] 09/09/2020 18:29) Final results Test Result Flag Units (Reference) ALCOHOL <10.0 MG/DL ALCOHOL % 0.01 % (0.00 - 0.01) *FOR MEDICAL PURPOSES ONLY*Magnesium: (JENN: 09/09/2020 17:40) ( [facility] 09/09/[place] 18:54) Final results Test Result Flag Units (Reference) MAGNESIUM 2.2 MG/DL (1.7 - 2.2)Acetaminophen Level: (JENN: 09/09/2020 17:40) ( [facility] 09/09/2020 18:29) Final results Test Result Flag Units (Reference) 5 Clinical Report - Physicians/Mid Levels [facility] Emergency Department [address] [place] [address] Phone #: ext- [phone] 09/09/2020 16:40 Patient: BRUNA LEE Sex: F : 1985 Age: 35y ACETAMINOPHEN <5.0 UG/ML (0.0 - 30.0) Salicylate Level: (JENN: 09/09/2020 17:40) ( [facility] 09/09/2020 18:36) Final results Test Result Flag [...] 09/11/2020 07:17) 6Clinical Report - Physicians/Mid Levels [facility] Emergency Department [address] [place] [address] Phone #: ext- [phone] 09/09/2020 16:40 Patient: BRUNA LEE Sex: F : 1985 Age: 35y Name Value Range Interpretation Code Description Data [place] rce(s) Supporting Document(s) ID Date Data Source [id number] 09/11/2020 01:50:00 [place] [address] RESPIRATORY CARE REPORT ==== ---------NAME------- NUMBER SEX AGE ADMIT DISC. XRAY# F/C TYPECOME BRUNA [id number] F 35 09/09/20 09/09/20 [id number] E/R DATE OF : 1985 M/R# [id number] #: [id number] VT-05 LOCATION: EMERGENCY DEPT [facility] [id number] COMPLE TE:09/10/20 01:43 T [id number] PHYSICIAN: AUTUMN ZENG Name Value Range Interpretation Code Description Data [place] rce(s) Supporting Document(s) ID Date Data Source [id number] 09/10/2020 06:29:00 PM EDT [facility] Name Value Range Interpretation Code Description Data [place] rce(s) Supporting Document(s) SARS coronavirus 2 RNA [Presence] in Res piratory specimen by MARK with probe detection NEGATIVE [facility] This lab was ordered by [facility] a nd reported by [facility]. ID Date Data Source [id number] 09/09/2020 06:53:00 PM EDT [facility] Name Value Range Interpretation Code Description Data [place] rce(s) Supporting Document(s) Magnesium [Mass/volume] in Serum or Plasma 2.2 MG/DL 1.7 - 2.2 [facility] ID Date Data Source [id number] 09/09/2020 06:52:00 PM EDT [facility] Name Value Range Interpretation Code Description Data [place] rce(s) Supporting Document(s) COMPREHENSIVE METABOLIC PANEL [facility] COMPREHENSIVE METABOLIC PANEL Sodium [Moles/volume] in Serum or Plasma 137 mEq/L 134 - 153 [facility] Potassium [Moles/volume] in Serum or Plasma 4.0 mEq/L 3.6 - 5.0 [facility] Chloride [Moles/volume] in Serum or Plasma 99 mEq/L 98 - 107 [facility] Carbon dioxide, total [Moles/volume] in Serum or Plasma 27 MEQ/L 22 - 30 [facility] Glucose [Mass/volume] in Serum or Plasma 103 MG/DL 70 - 99 H [facility] BUN 11 MG/DL 7 - [facility] Creat[facility] [Mass/volume] in Serum or Plasma 0.7 MG/DL 0.7 - 1.5 [facility] BUN/CREAT 16 8 - 27 [facility] al Protein [Mass/volume] in Serum or Plasma 7.1 G/DL 6.3 - 8.2 [facility] Albumin [Mass/volume] in Serum or Plasma 4.6 G/DL 3.9 - 5.0 [facility] Globulin [Mass/volume] in Serum by calculation 2.5 GM/DL 2.4 - 3.2 [facility] A/G RATIO 1.8 0.8 - 2.0 [facility] Calcium [Mass/volume] in Serum or Plasma 9.8 MG/DL 8.4 - 10.2 [facility] Bilirubin.total [Mass/volume] in Serum or Plasma <0.7 MG/DL 0.2 - 1.3 [facility] Alkaline phosphatase [Enzymatic activity/volume] in Serum or Plasma 68 U/L 38 - 126 [facility] Aspartate aminotransferase [Enzymatic activity/volume] in Serum or Plasma 22 U/L 5 - 40 [facility] Alanine aminotransferase [Enzymatic activity/volume] in Seru m or Plasma 16 U/L 7 - 56 [facility] Anion gap 3 in Serum or Plasma 11.0 mmol/L 8.0 - 16.0 [facility] AGE 35 yrs [facility] al NON-AA GFR >60 mL/min [facility] ital AFR AMER GFR >60 mL/min [facility] Male GFR In terprentation [...] >32 mL/min Normal ID Date Data Source [id number] 09/09/2020 06:36:00 PM EDT [facility] Name Value Range Interpretation Code Description Data [place] rce(s) Supporting Document(s) SALICYLATE <0.3 mg/dL 2.0 - 20.0 L [facility] ID Date Data Source [id number] 09/09/2020 06:29:00 PM EDT [facility] Name Value Range Interpretation Code Description Data [place] rce(s) Supporting Document(s) Acetaminophen [Presence] in Urine <5.0 UG/ML 0.0 - 30.0 [facility] ID Date Data Source [id number] 09/09/2020 06:29:00 PM EDT [facility] Name Value Range Interpretation Code Description Data [place] rce(s) Supporting Document(s) Ethanol [Moles/volume] in Blood <10.0 MG/DL [facility] ALCOHOL % 0.01 % 0.00 - 0.01 [facility] *FOR MEDICAL PURPOSES ONLY * ID Date Data Source [id number] 09/09/2020 06:18:00 PM EDT [facility] Name Value Range Interpretation Code Description Data [place] rce(s) Supporting Document(s) DRUG SCREEN URINE [facility] URINE DRUG SCREEN Amphetamine [Presence] in Urine by Screen method NEGATIVE NORMAL: N EGATIVE [facility] BARBITURATES NEGATIVE NORMAL: NEGATIVE [facility] BENZO NEGATIVE NORMAL: NEGATIVE [facility] COCAINE NEGATIVE NORMAL: NEGATIVE [facility] Tetrahydrocannabinol [Presence] in Urine NEGATIVE NORMAL: NEGATIVE [facility] OPIATES NEGATIVE NORMAL: NEGATIVE [facility] Phencyclidine [Presence] in Urine by Screen method NEGATIVE NOR MAL: NEGATIVE [facility] \\BLDo\\URINE DRUG SCR EEN INTERPRETATION\\BLDx\\ THE CUTOFFF LEVELS FOR DETECTION ARE FOLLOWS: AMPHETAMINES 1000 ng/ml BARBITUARATES 200 ng/ml BENZODIAZEPINES 100 ng/ml THC 50 ng/ml PHENCYCLIDINE 25 ng/ml OPIATES 300 ng/ml COCAINE 300 ng/ml ALL POSITIVES ARE CONSIDERED PRESUMPTIVE POSITIVE CONFIRMATION WILL BE PERFORMED AT PHYSICIAN REQUEST. ID Date Data Source [id number] 09/09/2020 06:04:00 PM EDT [facility] Name Value Range Interpretation Code Description Data [place] rce(s) Supporting Document(s) CBC W/AUTOMATED DIFF [facility] COMPLETE BLOOD COUNT Leukocytes [#/volume] in Blood by Automated count 9.6 10^3/uL 4.2 - 1 1.0 [facility] Erythrocytes [#/volume] in Blood by Automated count 4.34 10^6/uL 4. 20 - 5.40 [facility] Hemoglobin [Mass/volume] in Blood 12.7 g/dL 12.0 - 16.0 [facility] Hematocrit [Volume Fraction] of Blood by Automated count 38.1 % 3 7.0 - 47.0 [facility] Erythrocyte mean corpuscular volume [Entitic volume] by Auto mated count 87.8 fL 81.0 - 101 [facility] Erythrocyte mean corpuscular hemoglobin [Entitic mass] by Automated count 29.3 pg 27.0 - 34.0 [facility] Erythrocyte mean corpuscular hemoglobin concentration [Mass/volume] by Automated count 33.3 g/dL 31.0 - 36.0 [facility] Erythrocyte distribution width [Ratio] by Automated count 13.5 % 11.5 - 14.5 [facility] Platelets [#/volume] in Blood by Automated count 357 10^3/uL 150 - 45 0 [facility] Platelet mean volume [Entitic volume] in Blood by Automated count 9.6 fL 7.4 - 10.4 [facility] Neutrophils/100 leukocytes in Blood by Automated count 50.9 % 37. 0 - 80.0 [facility] Lymphocytes/100 leukocytes in Blood by Manual count 39.4 % 25.0 - 40.0 [facility] Monocytes/100 leukocytes in Blood by Automated count 7.5 % 3.0 - 8.0 [facility] Eosinophils/100 leukocytes in Blood by Automated count 1.1 % 0.0 - 7.0 [facility] Basophils/100 leukocytes in Blood by Automated count 0.6 % 0.0 - 2.5 [facility] %IG 0.5 % 0.0 - 0.0 [facility] % 0.0 - 0.0 [facility] al Neutrophils [#/volume] in Blood by Automated count 4.86 10^3/uL 2.00 - 6.90 [facility] Lymphocytes [#/volume] in Blood by Automated count 3.77 10^3/uL 0.60 - 3.40 H [facility] Monocytes [#/volume] in Blood by Automated count 0.72 10^3/uL 0.00 - 0.90 [facility] Eosinophils [#/volume] in Blood by Automated count 0.11 10^3/uL 0.00 - 0.70 [facility] Basophils [#/volume] in Blood by Automated count 0.06 10^3/uL 0.00 - 0.20 [facility] #IG 0.05 10^3/uL 0.00 - 0.10 [facility] #NRBC 0.00 10^3/uL 0.00 - 0.00 [facility] ospital MANUAL DIFF NOT INDICATED [facility] RBC MORPH NOT INDICATED [facility] Ho spital ID Date Data Source [id number] 09/09/2020 06:04:00 PM EDT [facility] Name Value Range Interpretation Code Description Data [place] rce(s) Supporting Document(s) [facility] NORMAL: Yellow [facility] ospital CLARITY clear NORMAL: Clear [facility] spital Specific gravity of Urine by Test strip 1.010 1.001 - 1.030 [facility] pH 7 5 - 9 [facility] Glucose [Mass/volume] in Urine by Test strip NORM NORMAL: Negat [facility] Bilirubin.total [Presence] in Urine by Test strip NEG NORMAL: Negative [facility] Ketones [Presence] in Urine by Test strip NEG NORMAL: Negative [facility] Protein [Mass/volume] in Urine by Test strip NEG NORMAL: Negat [facility] Nitrite [Presence] in Urine by Test strip NEG NORMAL: Negative [facility] BLOOD NEG NORMAL: Negative [facility] LEUK EST NEG NORMAL: Negative [facility] Urobilinogen [Mass/volume] in Urine by Test strip NOR less kenna n 1.0 mg/dL [facility] MICROSCOPIC Not Indicate [facility] ospital ID Date Data Source [id number] 08/27/2020 04:17:02 PM EDT [facility] Name Value Range Interpretation Code Description Data [place] rce(s) Supporting Document(s) Discharge Summary [facility] FRFOHt4mFuBPLxGo69/IQUvnYDEbk7FhAZnzJOh4GEubYBRqV2BsCDU0fN5rKCN2ORoPRaIlJgWfAzEj lbm GzGobYYwTpRWFtMogLAiBnYGviVfsohCEqEE8SqFW1MVErO11nHBJjLKBbX7MqAIB2KMK+Su3MSCMmvL CpVN9NXfrK5N9Rm5oOHd2kjy5AS2PDgbYAghUFeFqUupvIMqjK4jFB131NMKFIrdXYTldp/Zxx3Ph83E qhNlW5RcsfZldow04qqBEqcj6+GfdbKbmJpN92X30G itlG/O1cab9Rhd3i8Gp1IZoEMNgEQ6+gPlrmp1/5ocpX1zuXFMOMbllfCl+3kDafhCT9//W4xtG3HkSK f9VBqJDmneb6dhAZqjS1iPub5Flo+p4rJFPm32FrYchKOx1Gx7hdKi1GcgCfQToTartgUxEkdeWr33Pd R5t1MnH2FrqzgNFqNi8ocRUt2WPZGoKll9mubTdo0t YaXO9tIV7QjpuxKdzXWpyC+tBn7hqBPaFXU2iqIqXUcgeK92mqNMAkiQn1i+NS5DHR8TPL+vQU44NEcK sYB4IG3FccLPceRyYO7ltgeyyiLV+h8Hq8BiGA2lRku+LNyItSboecCtSooacVz1IXuRxf2FSW6D5da+ q4aVx9kpSG7mrK2bf2g6qQsWhoR33t2o0C5+2NodF8 asbJNygfiQm57o1O/KbdzmeMNldQEZC4LaVMltvFc80u+zF7luKkxq8n0BIerD5C0ommsuwgW98wx16j NhGjG/nncyJUr3LUshUp+GyZiVUSLZsWbLqwacAmUxZ/IXETtMd6UQd5QXkairTlhZjiAba4ztrfNOze nbaG3YjvcEinytQ+XVjyB+kePVefkXxDzFVyz13Uh1 4KF8LhnIAb7JMTQaX5/DQ7YJiuXfvwsWJW9JJPyHV/2/ae/Y6S/z9GRhRWC1sI+EJMY/37z7s5jzM2d5 wzaUhT/p4g9tabu2QXlBLZLryXNrkA2J1IeN8QCTSCwofjHRsZPMnYnQwgMsJzlhthsYHaqUsBYQ+Anc PjaDC4IPPF4pm/tXZsRGQMCHHCGSYEXLK4aeAUoEU7 [file] AgICAgICAgICAgICAgICAgICAgICAgICAgICAgICAg ICAgICAgICAgICAgICAgICAgICAgICAgICANCiAgICAgICAgICAgICAgICAgICAgICAgICAgICAgICAg ICAgICAgICAgICAgICAgICAgICAgICAgICAgICAgICAgICAgICAgICAgICAgICAgICAgICAgICAgICAg ICAgICAgICANCiAgICAgICAgICAgICAgICAgICAgIC AgICAgICAgICAgICAgICAgICAgICAgICAgICAgICAgICAgICAgICAgICAgICAgICAgICAgICAgICAgIC AgICAgICAgICAgICAgICAgICANCiAgICAgICAgICAgICAgICAgICAgICAgICAgICAgICAgICAgICAgIC AgICAgICAgICAgICAgICAgICAgICAgICAgICAgICAg ICAgICAgICAgICAgICAgICAgICAgICAgICAgICANCiAgICAgICAgICAgICAgICAgICAgICAgICAgICAg ICAgICAgICAgICAgICAgICAgICAgICAgICAgICAgICAgICAgICAgICAgICAgICAgICAgICAgICAgICAg ICAgICAgICAgICANCiAgICAgICAgICAgICAgICAgIC AgICAgICAgICAgICAgICAgICAgICAgICAgICAgICAgICAgICAgICAgICAgICAgICAgICAgICAgICAgIC AgICAgICAgICAgICAgICAgICAgICANCiAgICAgICAgICAgICAgICAgICAgICAgICAgICAgICAgICAgIC AgICAgICAgICAgICAgICAgICAgICAgICAgICAgICAg ICAgICAgICAgICAgICAgICAgICAgICAgICAgICAgICANCiAgICAgICAgICAgICAgICAgICAgICAgICAg ICAgICAgICAgICAgICAgICAgICAgICAgICAgICAgICAgICAgICAgICAgICAgICAgICAgICAgICAgICAg ICAgICAgICAgICAgICANCiAgICAgICAgICAgICAgIC AgICAgICAgICAgICAgICAgICAgICAgICAgICAgICAgICAgICAgICAgICAgICAgICAgICAgICAgICAgIC AgICAgICAgICAgICAgICAgICAgICAgICANCiAgICAgICAgICAgICAgICAgICAgICAgICAgICAgICAgIC AgICAgICAgICAgICAgICAgICAgICAgICAgICAgICAg ICAgICAgICAgICAgICAgICAgICAgICAgICAgICAgICAgICANCjw/eHMkL4rzjHWnxyX9C9zaVp6AMn2J HS6as9CvGBZrLJlomhEmSrgJArMqUBTjSiuWItm8NOfqNO3YnKAlB1NaF1FfSYawXF3JASYvNBTkwMNs ORAsXWBnUwM1EFYxQXcaBW8ErFRpPZtpYTLvCDPbIn RiNLQnDJVbZHJwQLLyYHTVOAUkHLXzQnXhTKPfJKIcDJwzAYDGXXA3IQJaAjRnTVFeAMScFbGeGEQSRV 4FWnVcF7JnhO42PQJqUZc+Kf0QCQ3an1YeZFa3OpRaTI8gxk7KBTtXDfUyJ9UisnO9TZVdNYKjQl3ENV WpZEVdbIQ5VeJaYGLNUkDrP7QchK64HPEOFv6+DQpl beBhUisGXcYvISHky9JvUIp3EU5LYFFcJUn5kTLsMLulK1wpoocpBCO7fX9uhjcmPawjGNNbkWngACkv UP7vYK3OYBJ7XWmrZa5pEPVeUKPaMrI1PNWXST3XFLNlZYIkqSQnDCRvQNTRCF3YMRpgJMB9MITabpYs kNDzQDrqHV3QJSHzpxEtQzBlVXRCSNn+Bw3DXH9ja6 SfYHg9YINaNA0uzd9ZYImGXvYuY2C6aLPpT5M1KYekYd2OZUTqEAHnCwTtYZITVQomQK9RLB1dxsR0IO 6OsNTaEWTjWVLkaQQiOSs2A91flJJiHDdpMG5CRRM+Luz+Uh0KUZAoDZCxHARiAcRyNKGGWjSfJ5WeN1 PGa3PeV4KmIF82xFmwmgItWHrqFK1SAD2tKLZlMYSP UI8XfFNnrR1nvoW9LnXdDFULPuIkQ93dhWMnXPGnRGAqUUGvPr2GQTAmT5CvpoXbwAwnlxMgUJEiQNGE FQ9UWCbkdzGwlMSbkLyvNO68aZlmRU5ZEa9MIpDpRO5ccb2BwCOoBc8NCAP8CX6RLSEcRLWiLWEoCTV1 JXJkKoNwLUrlOCLzLNCyAMR5CTImFIJiJB0UFtRgAD EbUDC9GSiuORPxGNIxaf8WFBToNSC2XZkfABBpUFFfCGNiRGlhJORdRXZnRGJ5XHMjOHIbVI6FLmYdCY OwMHGwErlqXVKrZLPtwt7OSYDnXHLvHHD1JrNlZVBuFOMkXKxnKJDeBAH8PFT5JYMhVIEtNS1IItTxRY GhIKpzVvdwQSIfQBUity6UEBYaXUPfULZwKhOyUFLp ENMmHBauIEEbBVSmVwE0JCHcXZWtVA4PTsJqIUSkPDQ1XmjpGLLyWBVgwu8GNDDoKGFfSKS5UYCeGOCv NCRcEUcoBOAsNSJ8RnJ6CPWlAUNcRC7MKkZeHXEpLUt7LGHiDMDqGPBcfv3DOYAwHBRbNbj5TyTkOCZg QZXwCXmfNQMzMCLdDXewIYMvQMHqEN5WTnRzZGBnUd H1UkYpPJAgRYCqsw2YMUYnUKSzFiW8HJEgUGOtMPHyGBwuZMNcLGTsJRm3RRXrJVWpUR4HZcNcOEEwSv PsBUShTDZgGCMnct7BSQEdWNIzAxQtDFRmJKPnDBFiDDlpCXTkXOCtNdY1OINtLFIlOL8BBfNlTGErLb D2NRGqBLDyOXUjcm7PQTNmCNXjOwx9SjVlITQfXWKb LDlvBZToUIJ1OOX7BXUtHQDbFZ9FAvWeIINbYyhpOSTvJBRqDXKbll0SAXOqKLVxTZWxGqVxRJUwAJLh RThxPQXbGTS6Kxi1JQSwYTLjSB1RQrNxTJAuFek9VZcwDXRhHUMcbg3BVQPbSPCbPBY5KhTeJMDgQDWq MNktZQBvEECrCyO4VZQfCXFcNV6YHiWoVBQpFKD4Nl smERHzXLJqsu1HITVgIFG7BUOtZCZbSKBzAMOyIPxjBEYbRGDjHNh7TFMyASZaHK0OXpTmNQOjQYCmHS QgZJSwCPLnwu6XOZIwOMR8IeE0OLMgHFJaAIPsFRlbGPDiPUEyLlH3RXOnUGGjEW2WHuSrCDDwHTN2Hd jdOBCcCZDqsy9FFAIgFUJ6ImsxDUPaRNAcVKLfHRyu CWEwAHZ8DWN6DPJtDWHbZU5JZeBwUGPrOFE3DdBlCNNuNMZsjt7OTKJlXHV0TZPiQIReHLRuUVVpFJho OIYuRYB3XKbfDIKsCKDwBQ0CRxDsPCKvRYZwMWYvLHUsKXCcav8OCHSkQZK2Bmd4IQZbUINmRRItPLvf AHJhOGH7DXYyZPGiZGKkNY6LFmXtXVQaJRihZdHeMG AtPICgtz5XZVCvBUI4FFP3NLQfHQIcRLFmDFmjXOJvBZG5HEg5BEOmUKWcNG4EWwBvUZFfQeXhKXorHX BpQMNewi6BDLJkCTS9JNGcJkXgYUWqVHHqNSjsCDZqCLbjGDf4IMOuOPWfKX6PEiPgBTRtNQK4LqevBW NmIZBhzw1ZQUBwQRA1EeH6OcBwTZMeBWBuZZohXAXt ZOsdKnwkFELyJHDsOT5MNgSwUNSmUYJ5PvMlXEBmLOZdwq6TJDRhGFM5EcX8FtAiTTVcCKYxUUhyUGQv UGjqRpK6KIShJAUiZG4MTlSzIWPpWSK5WVZzEQAzNSJkxx2BPRScBEA6Miw7FTSfNLDfSCAwMAkbNNYe EVw7QUf7EEEbQNLaPZ6UDaFjCBTrCXZ9YEkdMDObSX Vidn3RETHwAMZ6BeI0HKCnZFLuKUCdADrdPNTaTVb3NqO8PMRnAKPkJK1AVvRuQFwaUFBPQdp8DSbnG4 x3TNB6VB5EQ4Tsd2RaZaNsFNHZVXmqBD6bwxNlDPJdWy0CH7aLIcwvVWA1UbHpOYvvGaH5KvdbAdOaE0 TyJtUaIBTwLyB5Qm3zJERjQvP7KBY0ZjCvGQNqDNKu YNB9JMMzLTSmKTQrGmyhPsAaQL2PUq6VNkO0ANV9kVUnZp7VTHN3FXXAEdBmHK9ISHp= ID Date Data Source [id number] 08/26/2020 04:11:50 PM EDT [facility] Name Value Range Interpretation Code Description Data [place] rce(s) Supporting Document(s) History and Physical [facility] FPTOLc3qCsGQPoXq56/TBRujDOXlo5ZeBNmzTBo4HOzzPNTyF9RqPPS4jE4dNDS2HBoGNcRzDbXaOaWg lbm [file] AgICAgICAgICAgICAgICAgICAgICAgICAgICAgICAg ICAgICAgICAgICAgICAgICAgICAgICANCiAgICAgICAgICAgICAgICAgICAgICAgICAgICAgICAgICAg ICAgICAgICAgICAgICAgICAgICAgICAgICAgICAgICAgICAgICAgICAgICAgICAgICAgICAgICAgICAg ICAgICANCiAgICAgICAgICAgICAgICAgICAgICAgIC AgICAgICAgICAgICAgICAgICAgICAgICAgICAgICAgICAgICAgICAgICAgICAgICAgICAgICAgICAgIC AgICAgICAgICAgICAgICANCiAgICAgICAgICAgICAgICAgICAgICAgICAgICAgICAgICAgICAgICAgIC AgICAgICAgICAgICAgICAgICAgICAgICAgICAgICAg ICAgICAgICAgICAgICAgICAgICAgICAgICANCiAgICAgICAgICAgICAgICAgICAgICAgICAgICAgICAg ICAgICAgICAgICAgICAgICAgICAgICAgICAgICAgICAgICAgICAgICAgICAgICAgICAgICAgICAgICAg ICAgICAgICANCiAgICAgICAgICAgICAgICAgICAgIC AgICAgICAgICAgICAgICAgICAgICAgICAgICAgICAgICAgICAgICAgICAgICAgICAgICAgICAgICAgIC AgICAgICAgICAgICAgICAgICANCiAgICAgICAgICAgICAgICAgICAgICAgICAgICAgICAgICAgICAgIC AgICAgICAgICAgICAgICAgICAgICAgICAgICAgICAg ICAgICAgICAgICAgICAgICAgICAgICAgICAgICANCiAgICAgICAgICAgICAgICAgICAgICAgICAgICAg ICAgICAgICAgICAgICAgICAgICAgICAgICAgICAgICAgICAgICAgICAgICAgICAgICAgICAgICAgICAg ICAgICAgICAgICANCiAgICAgICAgICAgICAgICAgIC AgICAgICAgICAgICAgICAgICAgICAgICAgICAgICAgICAgICAgICAgICAgICAgICAgICAgICAgICAgIC AgICAgICAgICAgICAgICAgICAgICANCiAgICAgICAgICAgICAgICAgICAgICAgICAgICAgICAgICAgIC AgICAgICAgICAgICAgICAgICAgICAgICAgICAgICAg ICAgICAgICAgICAgICAgICAgICAgICAgICAgICAgICANCjw/dLWwG9jvqKLgpsF8T6nxCt8IRe6YZV8v t1IyEPSyZPjvrwYuMigOBmUzVVYsPvqMMhq4VNefEG9PpWPfB0OeH2IxHXraTF9LVJXjUHTipPZeMHCw KMBxEiH2YFPzQBbgMV2KeCYgEHdhMGEyMNQnJkMmSY WiNWQkDREzTCMgRAWDNWUgCPRjIwElAIXaGJOlGXexAAQHEH0OHnQsY1YbbX37ECcRFj7+DQplbmRvYm hORfWtYZKxy2PoMPu2AT3CMUDoHidld7VtYYZwDHBIWQvaYK0KQBJ8IGAzXMXbFa5TYDVhF202qzFnCX 9DYu0WFaMrFY5kbj4CXNWjCQJyLhiJKsm0AWycQX1M lSNxCEcZCiUyQpczWLJxuQxjIGdtMF8nTO5ZEMJ5BDcqKV0fFFUiYDMkPdC0DRUMUH3OPTSvVGFevLQd DMOkELAJSY9DCJtwBEU5NNIvgfLcmDAbIDquOV3DGMJmclGtUULcVSNZYEj+Nk9AYW0mm2KoOGn0JvIq MC2ccj5BBHzDTqFrU8F9eNJcT6X9KUuuFr1VNJDiSL NgZGocHMNVQLfnXE0FLC0zvaM4JN0WvEWrSJMzZYIuhBDfQUr4O02lkUWbHUxjEB0IODY+Luz+Pg0KIC OrWHAmXLPkZeVhQNLHFqMxP5OdL6ZPi1EuJ8XxBX30xNcgjiJdKKflUR2CQQ3bEVQkTDDIHT9TgRGqjJ 5ubuA0ZATzXNPPHrWoA54qtHBpGODkMGNdSXLfIh7S VDKcT4DxryVwzSdjxnMfCAAoRUTJBH5KPJatmsHtpAKmuSwlJG94oMuxCI0XVj7HUmHySQ5ukz7AuJHh Cw6OIAG2AT4SZTSyKWDiINUxNTL5OVIrDfOnMOgqIWXgRUTaZUR0QYXlYPUvCF4HOpCeUHWfHRC0XClz TJFbINCobe6LIZUaOCG6QyDoNFTzNFNgOBTcOAkvTM SsTWYkQWG4WEUeQUDkZC6VQhVoBAJnZLJ4BJDzEEHoIKYxel3NUJUwLFErXHB0SADlVUExWJFiDHujJO UzKNG1JAh4SITtERWyQS4FDcJhYMOnRGs7KQRdDOMoNBGbiw8LZOAyXFXeTGwuIOGeSCBgNLLlCEkbID UnRFFfLPF8YWYeJAXwQE8ZNzJuOAIiBILyPMcvSJWj TPQgio9KMSYgYGFeWBM9UGHeSVJeCXJdFRfqWQLtYII1ECA9SERzVNEiEV5SHoDqGNUoGIyfDEZsFOKt HHEuzr6PHPFeCLNiGbJtWtJdDVPyIDZsVQfaNWDgYXJsCqXbCDKbYJJuHK8MGgAoEDCcQfX5RyBgNOZz STUhzn7LZLQqQRKfPsK7EuEbNTRsFHZaPDoeWPGcHJ K6LKI6AGHdEPDxPV7YHvAiPHOqMedkDjHzBJFlFYGofe6AFHSoPLDkRJStGjFcPGTuTVYtLDxiMYQeEX X9ENI0TAShSVEzLR0MLcPqDPDpCyl5ShrlQCUrZEUysv3OHQVtLTCaYMu9KIFxJAIePUUkICdkHLJvHT WiJQI6JAPeMNDcSE5SBqSkGAHwBpRpELHeRLZjZDSd pd8IJGUsFNYzIAXzMROtWZLtPSZePPdoDNZeSAUdRZG7NXMwZSLgQP1XYnLjKIQeMpXcNoHoXDLpQZMe ll1JQYQvBEBmHeW5BIEyBMLtYWBnXJggGVKhAFUxXGS7VYBwTRKmNI4NCyToTIGzAtW4MHimZRVmXLJg gu0HXVMyEAEuPct2ITEuYGLhTPEnFGuoEOEyHYM0Sp iyLYSxAFCyGO7QKhKdTNMqTJO0EMTeOAKgGGYbwp3HNCJmLZU5TGrqWLKzIICmJQGzGHpcBRLqBVG3MV M6QRSfSHGlJK6UOvZuFCYqWHKpTHRwDKLtAHByhz5YXRDwRHY7GuJiPDLbVJIpCLAgCBvjGDIoEXX5Ys QkZIPrJOKlFN3MVhGtFULtMXu2ISUnDYLoQLSrmu5U QGHxZQG5CaI9PMMdXNMpRBAkTFmkLNJpPGPfObi7VSLbEVKcQI0DIsYwAOJwYVF4SBCzQVMsTVGjat5E OLMoPPJ7RwP4FFDmNSUnBTYtAIfdMSMrBULdRra6NXYeRHQoZC0HMuGzMZMfMYVdHvIwEUTnGPHvoo3E OTHuVZG0HQMgNCHfZDNaRDTcANpcUVElBGG1WMx6KP MvZHLtSM1PUgJtZNTeVROtOKJbWOXwZRGesm6GDEQyGXB5CvQ4HoYaXZVvOKKsWAdpUPVsJUB2LrSvEX UoZDPpFN0HFlWkQDXuCXI1CvibZSLgSOXsbt2OaWIkePmruc4RHXnFRn5EkKzzTRS9GBlgJu4nsPG9Ti GuJVFQYd3MzbNhKOEpPNUVFIbhAKFqKBJ8PLQaGuHk PYhrAoUiQrKnQFJlRZMnA4N7Vph4JFUmMyH9CyBoVNY7VPHmDuIzZPVhTCO1WCQ6NlK2PEwaTRQrDKO+ WH1jRGp+Dr7Yy3ZmuyY5bgFiJNy4NlWqCI2FXIXHO0KRYz== ID Date Data Source [id number] 08/26/2020 02:49:08 PM EDT [facility] Name Value Range Interpretation Code Description Data [place] rce(s) Supporting Document(s) History and Physical [facility] CVKXPt8vNiRUBiDu11/OIWwhMVLrb6EpXLsmTDx2YDxbSHNdE0OiQAY0bH9uBDA1PLoYDqKeEsVoMqYy lbm [file] sjhRZuiWyjQXNXVuFzVzS2EVtgBLBBVa7C ID Date Data Source [id number] 08/25/2020 03:29:00 PM EDT [facility] Name Value Range Interpretation Code Description Data [place] rce(s) Supporting Document(s) SARS coronavirus 2 RNA [Presence] in Res piratory specimen by MARK with probe detection NEGATIVE [facility] This lab was ordered by [facility] a nd reported by [facility]. ID Date Data Source [id number] 08/17/2020 03:58:41 PM EDT [facility] Name Value Range Interpretation Code Description Data [place] rce(s) Supporting Document(s) Discharge Summary [facility] ZRGJBd6oXyURMsBs10/LSMegHWObo0JoECgpFTl4ZFvyLNWoI0AdSWT2cW2nGZT3DJsZQvXiIoLoMkFf lbm [file] ICAgICAgICAgICAgICAgICAgICAgICAgICAgICAgIC PvGJKmLDEuAQEwDPSvVNEwFAMdCBTzNYVbFSYxFDBkIWAvNCZdLL1KWQUhDZDpJCFxGEUkFHQfCTXdFV AgICAgICAgICAgICAgICAgICAgICAgICAgICAgICAgICAgICAgICAgICAgICAgICAgICAgICAgICAgIC OcWQKdJXGiPXInGELmJPUfEUOmQV0RGVEgUFZbMYTv ICAgICAgICAgICAgICAgICAgICAgICAgICAgICAgICAgICAgICAgICAgICAgICAgICAgICAgICAgICAg MMQjWTNjNFXhCJZzYJKnNSPzMIKdNNEuMCBpMIShSO5HBXNkOFIbCXCzBERyOSDiFSYzUNMjTGRwTPYn ICAgICAgICAgICAgICAgICAgICAgICAgICAgICAgIC UvQJHsSZNwOUIcEIPwMGMqTYZrBUNrVIInWWOxFLAyWDAwVLNbNUPtHJ9MRWWcETEiUMNiZWYwIPIfFJ AgICAgICAgICAgICAgICAgICAgICAgICAgICAgICAgICAgICAgICAgICAgICAgICAgICAgICAgICAgIC DeIBBnVPNyAXPkKIXlMRSnORBvRFHlSM6QUAPeNBUb ICAgICAgICAgICAgICAgICAgICAgICAgICAgICAgICAgICAgICAgICAgICAgICAgICAgICAgICAgICAg YHVvDKXoUYAvCMStLJPkSSKjXZGbJZXzQJXyNSVfDTVqSG5TOWJgCUCdOGTfPCBaFCMfDSAjNALxYCEe ICAgICAgICAgICAgICAgICAgICAgICAgICAgICAgIC UhJINeSLDoJHTyZDZiRUWaNMOkPOPbYDBoNCWgKWIgNHNjLJMlEJLcPCLmIP3UXQVwMKQwGKFyBKBlML AgICAgICAgICAgICAgICAgICAgICAgICAgICAgICAgICAgICAgICAgICAgICAgICAgICAgICAgICAgIC DrDZFqWMGvUNRnEKMjPIIsILUyEARpDXEwUP1ROPTx ICAgICAgICAgICAgICAgICAgICAgICAgICAgICAgICAgICAgICAgICAgICAgICAgICAgICAgICAgICAg VXGdDYAySKDrTZJxFZKxXVOsIHWpIRWrTDNpJNAuUXWiMZCuHS7AKIUlJVRxASXpSNDbNGYnAGNuWBDs ICAgICAgICAgICAgICAgICAgICAgICAgICAgICAgIC MdFBWqRZNoVHSlOLTiRIVcHJBsTJUwPURgUYCmNWZaXNBhLHLnDASwVXGfACZoCZ2DYH69aRBgk0Z6NX XhNT3euoc/Yj8JDRvgvmZqiTHsJH1AFqCcYN7vwy2TMpRiFJ8ebz8GKCmLQuXoJ2Y4kGAtQAErYEGNEt RiW14vWUxoZj41ZGheGJCqKvAtXIw9Ws9OVkSfW2cr SPXkLxV8NEIpXmV5EWFpJmV4DCOkMjHdCNFqKBBbHNRmQOKPORO5WUHeVyKfRwDzOHJmZBjhMILNLHYc WTPqEnMsQfOuCBNaPP5MSKHqY030owYdTDOVFf9+LHkadgRrBwhOPbV7CUKgk4XvAFu0NO2DNLTxPnus q8PfCOtwMPDJOYomYT0KSPX5UMJ2CCMkBe6TCZBlH7 68fnLmTO4NVb4ZSbPwEL4vtw3ITAhiVWYmVptPHzx7PZunKJ9QeOUjMDjLrIVxwWJdG8AaF3KlmAYbvF QibNJYuNQvRUAfQTHeuaSnVtSluRetgPhnKSDbEYYoYn0sVq4zWYSnOTOoPqUqJZUJFS1OXMQdOFOiaG JeKKItJUWSML2VMVmqDDL9LXVrgdHykHWkPDkeJW1C YXJlbnQgNTcgMCBSDQo+Dg4SXK2kp4JcOEg0MMJxEG4fax8SOPjDQpAfL2J0yYNdL3I0OXjnGd3MLCZl BGSuZVUjEXLZCBygAJ5KHW7muiX9FJ1NqWJoJLRsYZNcpGIoQGl6Q87hoAUlKOqxMN5DJMW+Luz+Pg0K AKAyRGLkCSOmAvOnDYHAMaDdY0DeZ0HIo4VyS1GpIY 05jSmsjsVyKLwtXK6ENQ1cMSKsXIFTHN1LlJWjjN7zvzH7OzBcXJGMIzVyR52doSKsKTAiBSE6GTPnYb 9RODUlG4XqjjOymBycvfGyWDWmOCBSGG4USWuzsbUyqQDubTkaXY23jBnfLS5JLo5ODeBxCO9vmc2KdH EhYl0IMYD8OO8REZOnJIMjZKDlGEW3ZSBwOyBhXDrn RJWmYXDwIHK2TVWqTTJaJT5QBrHqGLItSoD3UeTxRDUpNYFnbr0EHBDfMZX5GVE7KCRoKECvLFHmCMro OAWdLZOcUYT3YVXcMYBmEW3FQzEuIWLuUFTlILfsKWTtGBAqfp2GBGUhUBOaSBK2TEIyFIKxIUFiSOxs SBMrGRO5FuHsCSBoXKHkEX2USdXuMRBuWPh1UWZiUR ZeWAArzl4NYGOeWESmShEsWXNyGDSsMDLpVAppCDGaDGHwPqL2ZNOsCYFeIN7ELmUmILJwVGS0ODpeAG BhSKEgqv9MUCLwGPDpBdq4ZBFdLBLcREGiNArrHSGmBFNoPBSyGYUgPBDbVO0NDcYfVCYkVpSbHKhvVR OhHCLxal7IQKEgFQZwTUF6MWHtMBDmXGNfOMpkLMBi MQF7Nki8SELvBRSmLH8IHzYqZIYjNyb9NaHrQECfAULojp1GYIRlAXAhUSYgThUnNZHzSDUzMYawALKh KUMiXKEsVNJcUVPeJK9DDkCfTFNkMhPuQeshHLHqDUIvox8RIFUcOMMpMEL0XZXgGSOaXQDrCKerYKFd LCD0XdVkFALjFLYdQO3XUmJbMCQwIoG3QZSwOPRjDW Ctjt3VZROeZXBoOpsdFuIjZHMfWWQtEHraFFOtEVU0Ipt8FENlUDJqRC7SPuPfSWPvOzv3TnJiLJKhTW Ulpd4FRFEcLUBkZIB8KgTbQUObLREhJMjcFORqDPA6MTW9QYZaPIEbAX1BNzGlKDUuVoviBHuzZUJxRW Tgal4DLVQeUKLsIXBkPBArHLPtPKBtYLouRHPhCHPj TWT6SWThRVUlFB8CYnZpPBUuWRX3IjMnXFQoWAMidb2HENPtJTH6JKl0CUOoDYFhKDAnKSmbHIFcIJAh UXI4WVJeSINjMH4TUpTcGZTuUKCnXICaVDFrLRUzvd1ZRAErUMI4MyY7VKGiYLUpQYHoUVzxYMFvYEJy NVN1KASpZMCeND4TRzKtGMKmUUPvACqiTAKnRJStwo 6PUYLyLOW3ClO6QLQrKOQnPSMaVYymHPThPMM6COJwPBQfGURmDZ3PCrVmESBoUQCxBENuQAYyCDZjpv 2HEOMiHEC2WCC1TFPuIJLgESPoKJepUOAeDTA6Kyb4EVIuWSUhAW4FHyGwYKAsNLI8PEEaWNTuAJWhil 8VLEEmDJS0PAzcWLGzLXOeEOViATfnBZHlUAAcICL6 SJXpFDRwEO2OWxQzXGErUfQtFnScCRAkJJJniw0LXWYjTQW3DBR7IIPyASYiAVSkTEdhQKPvEDCpTeO3 QTDlZQVmDG4MJuAfBLVmYjL0EzZbZEYsQFDvwy1VLKTnAUA5Cro3OVVrAJCfGVUqUHvgBWBgYVBbMEY3 UWUqMTBxGP0XDaNbFHGbGfGvIMOsUAAvWGIdke5YDT KvOWP6EvW8OFSoPLSbRQOqFJvpYRFzWDHvCOTuTOVfURAwRC9QUlInOGIkXcPxDZnnMVBdRUTvvd8XHI SeESC3JEG6AUXgPAPpVNHyUUqxXGVuBUC7UuJ7CLBhMUBoUL2FZqWpOFVeWdD5JzdsGTOpVZXixb1AoD IaxXakgg2IPMhLJx4WvJptHVLcMLqqXn3nbVC9DXZq ANZVKy3CncPkEEXaZYHOQGxhIRGgREAzBGBqBHq3GEUuQ7AkW0Y9IaGsUYLnRIF9MGxnJYyiQrO4T2Oq CVZiGqQ2TmT1IQM4EfRvCBRwDXE3SMm6QSU3P2J+KH2oOGx+Jg8Kj5PzwbE1ivLaERm7ZsPwDR5IUCEZ T0YNCg== ID Date Data Source [id number] 08/15/2020 07:55:53 PM EDT [facility] Name Value Range Interpretation Code Description Data [place] rce(s) Supporting Document(s) Color of Urine [facility] Clarity of Urine [facility] Specific gravity of Urine by Refractometry automated 1.010 1.003 -1.030 [facility] pH of Urine by Automated test strip 7.0 5.0-8.0 [facility] Protein [Mass/volume] in Urine by Automated test strip Neg [facility] Glucose [Mass/volume] in Urine by Automated test strip Neg [facility] Ketones [Mass/volume] in Urine by Automated test strip Neg [facility] Bilirubin.total [Presence] in Urine by Automated test strip Negative [facility] Hemoglobin [Presence] in Urine by Automated test strip Neg [facility] Leukocyte esterase [Presence] in Urine by Automated test strip Negative [facility] Nitrite [Presence] in Urine by Automated test strip Negati [facility] Leukocytes [#/area] in Urine sediment by Automated count 0 -5 [facility] Erythrocytes [#/area] in Urine sediment by Automated count 0-3 [facility] ID Date Data Source [id number] 08/08/2020 03:50:12 PM EDT [facility] Name Value Range Interpretation Code Description Data [place] e(s) Supporting Document(s) History and Physical [facility] DVXLKe2pBjLXBzOj85/QWSdnRELhb5HwKQeyYYf7AXsyYPOfE2VhLQY0kQ8zHDC5QRzCEdDqMaOtRfDz lbm [file] AgICAgICAgICAgICAgICAgICAgICAgICAgICAgICAgICAgICAgICAgICAgICAgICAgICAgICAgICAgIC AgICAgICANCiAgICAgICAgICAgICAgICAgICAgICAg ICAgICAgICAgICAgICAgICAgICAgICAgICAgICAgICAgICAgICAgICAgICAgICAgICAgICAgICAgICAg ICAgICAgICAgICAgICAgICANCiAgICAgICAgICAgICAgICAgICAgICAgICAgICAgICAgICAgICAgICAg ICAgICAgICAgICAgICAgICAgICAgICAgICAgICAgIC AgICAgICAgICAgICAgICAgICAgICAgICAgICANCiAgICAgICAgICAgICAgICAgICAgICAgICAgICAgIC AgICAgICAgICAgICAgICAgICAgICAgICAgICAgICAgICAgICAgICAgICAgICAgICAgICAgICAgICAgIC AgICAgICAgICANCiAgICAgICAgICAgICAgICAgICAg ICAgICAgICAgICAgICAgICAgICAgICAgICAgICAgICAgICAgICAgICAgICAgICAgICAgICAgICAgICAg ICAgICAgICAgICAgICAgICAgICANCiAgICAgICAgICAgICAgICAgICAgICAgICAgICAgICAgICAgICAg ICAgICAgICAgICAgICAgICAgICAgICAgICAgICAgIC AgICAgICAgICAgICAgICAgICAgICAgICAgICAgICANCiAgICAgICAgICAgICAgICAgICAgICAgICAgIC AgICAgICAgICAgICAgICAgICAgICAgICAgICAgICAgICAgICAgICAgICAgICAgICAgICAgICAgICAgIC AgICAgICAgICAgICANCiAgICAgICAgICAgICAgICAg ICAgICAgICAgICAgICAgICAgICAgICAgICAgICAgICAgICAgICAgICAgICAgICAgICAgICAgICAgICAg ICAgICAgICAgICAgICAgICAgICAgICANCiAgICAgICAgICAgICAgICAgICAgICAgICAgICAgICAgICAg ICAgICAgICAgICAgICAgICAgICAgICAgICAgICAgIC AgICAgICAgICAgICAgICAgICAgICAgICAgICAgICAgICANCiAgICAgICAgICAgICAgICAgICAgICAgIC AgICAgICAgICAgICAgICAgICAgICAgICAgICAgICAgICAgICAgICAgICAgICAgICAgICAgICAgICAgIC AgICAgICAgICAgICAgICANCjw/uERqA7xnyLSzwyV9 F8iyXb8RWn7DSI3jw7OeOGIbWYinsvHvAwsSLtZtMFUsDegEIjf6TPdtAM6XyJCdE3OyI0FqEDmxCH9K EWWnLORenVBnNAWwRLZlIjU4EYShQWxaUE9HnDGgGXhwOOSyLTNdGhIsIVIfOMOsAXGoUWJtVDJMXO9H JlQaX8EksN27NTPVJz0+MVxpnvTvVmdLZiD0GHQku5 BlSLb2TF4HUWBnPkxne4FlWwQaWOWLHQtmPB5KCDD7UUH2BJVkSw5QDRKuE205etHcKN1TWi8QHpMgDF 8shu8NYoKyCAXeVptDVrb4KAytYM1RrLMfJTcZKdBqLyxaFLDzpAKMSQQoRPWydIomXSHbKDAiTx6oKz 5cJNPrOOCqGtL1SYQEEQ7WDGBpZFSmpWHnWLBcKHCB FZ2REUojDVY4IGTfweFfiSBcANxmPK8MBZZamwVwHpDtBBYEVNf+Pw2FVS0zu5NiKLcvDjGiIA5vzu0D HOcPNnZxT7T0tIRyX2M1PPvwSa0BGZNyBXGyHmDcDOVEBPiuOX1PZM5zlsN4IJ5WsDCqPDBlLNQmtKQm WLd5S24oxLVrESjdGG4ZKWN+Luz+Ly0CPBUaWBMmWV NmRdDpRKEJTeMdJ0YxB6VPn7DvM9FnWZ57oKsxuoWfYLwmKO4MFV0iFAOgEWXWOJ1UiYEkoJ7jjtUpEO MmEIOKRzTlK74rbPJsKHFdCXZjNYNfWu6VOLWwY0IkgbYmmZlfbmJjFYFfYCKPFA4FLNcdgpAdhSBvcE mtRA43qLrnID2DGw0ZLgJqHA2tdq7QnZJaFl9EPCOx Mw3ZGRCiMWBjIYIyDTE2QGRjAmQfJFqbMXTwMBFtPHL9TNBeZSHkYS8ZYyIoIOYrXyU5UUTaJJVrTRUz zi8XZFEnQPYyErK6OSUlMFPzACGkVRkdWAZpRDCfBUS9SBMmDAGeLY9RDbGoIQImKHQzRfHbIWMiMZGe qe4VDROsJGVeSdW2PiLvDEUmOMEeESlqCIIaQGI6MF J8YRTkTZSdWP5FMyFiENBySTHjUqBuASIiEZFmgr6OJKCxRBNhHIR8POWhMXEiNPDoRLkpLMXhJYF8Nv bgLUXfWVIfEH0CBzDmKLFaBVK7ABnhQKKpBMSkxx0IIGPjQAXnYMlbTVFtGTBoZTAmWQenDCCbIVErSp Z5VWFrEVIbAB8MZkXqUFXqMMH5XaOaOOGmMVGpwf3P KMAfBHMiVzM9OFYcBIPsNEQnLUfqGWNgIYK8XXO0AWEfUHDrFW6FWeTjJRMhMSXhQZIsEYCuTZVmsx7H SDZiRDUaDUV6KOBmLUYeRYNhZQaqZORrEHM9RvK1UJUoAMHaTK4VSnScMEGkRZN7SOVzETUiVQTadh6A IOGhKMEeUAzeKMApHRNhSAXxUEedVOUoCFF1SVH1QL TfGECmBB5OOtFtJKIhEri1OknwEKPfTQZvoe9YCCZnCCKwVcB8PbAfTVPrVWSbUIznWUPiQTT3XIx8AE IfUWMdAU6ANyWlCRSrXytuIbIfLDOzWVYrlb8TPHEcJAJfQQw7YQHgPNShVYHbDNwuVLAbBEM8OSSxCR FzJFTxAK0IReZkSLPsLwscQMIuLXBpNSYmvk1HNIPx DZOqVSP7YXVlQGPsLFQuDRanFUPfWRToQLi6BMOoTEYdIX1JZlYwEIOrAhX8TxLpAMDjCJKxvf1QKZYu YPLoNHHrXCSbHBSfKOZbIBdeOJDbSYLwMYS1QHQiHHXpLH9UZoHmODEwSfA9TsbeOKVkTROqiw6AZXIp UYHaLdx4AQSrCNDoTUVlRTt6wjCgcNBnEGl4YE2VT8 WtwtEiXqrBLm0Dq270EWV8BIHuFb2ZP3qbVe8kCFWoZQCYDi1FVCo9ZTJ8W1NiLUH6W8QeMbG6YMIvDS MrFKs0PMspULNqUsd+FXkwSim4SOCpUIx8HKUeCZd8ULU4BHLjNgNiAWP8PwVuMI5aHIAJEg1+DQpzdG EoeLefDXVGYlRsHYK7MJwoTWXOJp9P ID Date Data Source [id number] 08/07/2020 04:12:43 PM EDT [facility] Name Value Range Interpretation Code Description Data [place] e(s) Supporting Document(s) History and Physical [facility] RDTPLy0gQpPJTpUg48/ZAVqxFSJhx2EdJBajPNo4PDuuIAJoM6CcKPK2tJ9cNAA5GWuORqKsByTpKpHa lbm [file] ICAgICAgICAgICAgICAgICAgICAgICAgICAgICAgICAgICAgICAgICAgICAgICAgICAgICAgICAgICAg KAXtLINjWNJrPUAePONyKB2KOPBzNQKmMJZsFFQjWACtAYTtOWYzNVBxXORzHQSjJOKvZVCfHPDhETOv ICAgICAgICAgICAgICAgICAgICAgICAgICAgICAgIC HfLYRaYJUrQHArDYLvXLYtUZKoXVLxEHDbXJ2KQVRtKKZuNNEuRWRoKIQtXIQfSCEuSYVlXBAvUTVxTD AgICAgICAgICAgICAgICAgICAgICAgICAgICAgICAgICAgICAgICAgICAgICAgICAgICAgICAgICAgIC HbCFTsLNBgTP9UJKEfBTEhOSHrLRPyVHPvYGCvSAJp ICAgICAgICAgICAgICAgICAgICAgICAgICAgICAgICAgICAgICAgICAgICAgICAgICAgICAgICAgICAg HTWiWDJyJKAtPFUgJLBfJHBdND0VYDOzMIAwWRKsALWeXTLlHBQqBIYzJPXoXMBeFKOiWLQoCDSqAQUn ICAgICAgICAgICAgICAgICAgICAgICAgICAgICAgIC CkUCAbMGZmZSJpBOMlXJNlYCRpCSZiOKShCBDcDZ7PUKQgVVYpARXyUTJgDPZrZFHjJSKwVOSiPYThLH AgICAgICAgICAgICAgICAgICAgICAgICAgICAgICAgICAgICAgICAgICAgICAgICAgICAgICAgICAgIC XfHYNtZZNvTREjSD8VJBGyPIJsXJLoTNOcHJPuFZVr ICAgICAgICAgICAgICAgICAgICAgICAgICAgICAgICAgICAgICAgICAgICAgICAgICAgICAgICAgICAg UJInQGQyMIQgQVYoHIShIOTdKSCkNS1LIVNiRVRgKFKbUDAbPKXtSLVuOMBbSOZuMWQfDCYlSPRlGDYo ICAgICAgICAgICAgICAgICAgICAgICAgICAgICAgIC EyQPYxBKXmKNYeIUWcZLNvVZKxVSAiQYBdDMHhWKTyJD1KMRWuXLJcWEReKKHfYMKvMGZsPVCkVYNrIP AgICAgICAgICAgICAgICAgICAgICAgICAgICAgICAgICAgICAgICAgICAgICAgICAgICAgICAgICAgIC JlBMJhNYYzRRBnFNReWL2HTMGeLJAkJWPnITUuQLBn ICAgICAgICAgICAgICAgICAgICAgICAgICAgICAgICAgICAgICAgICAgICAgICAgICAgICAgICAgICAg TAApVVBsUIQgODJoYBOwQKMeTYPmUDBnLB3VND14sZDoo5L9SQJrGR3arib/Ii3AAHedneLyrADrVL9M UxKsMG5xxi9ADbMlOM8roa3PVZjHDfSmX8F5nJTxBI CiAYTPRpVgT53iIXxuNc45BVmsXQQfEpTfBUb0Ha4FWpAgT6zgFSKqXqG4JRGcBvB0AJDcYuD1OEKmVf DvYNVxXDTgFWXhFRAFIJB0HFIhCgPdBaIaVCLwQO8RKJXzI374jdWbOs9SRe4HCuGkHU1msc1BXGSjLV GfIeaGGce3JLyxNL8PqLZoeWB5HCTpMNBJXpGiO9xq g3MuJKCrXKCMQLbmQH2Ej6StiMYmZXh+Xw7JIA7tc9QdPGu5LFLuMF0gwg9DBYqRUrMiB5BxjBwkZIlw LOCyhUVFlSIlpLZsoDPeZUEWrQhgJLCcBO0GNIL9DTPfUZNpZeViWJHdIDe3CoLMPFeQXhQyV8Yyl4Vo WoV7RXRdBdNvGLskSRNeExI5HJ20rVjkFD6VASKlIC JiSR83ZLXpUUBqIo7AWk1JYmXuRF2dke6UVNGeWBCyUkwWLwt9NOkyGR4RtWTnX2TqgUZnm4mOZvBfX6 WYBYRdJFIfXw7JMPFxZhVkKUUcTYhhKU5hFZJuGSUEiLrpfhE1LE7TXB4mtmZnAN2ZRpRgQu9qWf4QFe NlC5UmY6PxSFMzCGVAADviVO4QVYxeFD6gDN9Eh9KI vXQgmP2rws3KXDBfNSXhBxcrvl3SXakfY2E9cKbkOEZbGWKeTIKDEUexLK7LRGNnPSE0BSV9VnLaZEFG NvRgC00zYN7RU8Roc44qXlM8YRHfKkFpTEvaJN06kKwisiFinJOgbHmiBA3RPc0+DQplbmRvYmoNCnhy OZJPGiHzITMMZjWiVJQkMQZeQVRfLzS9BfSkGy0KDR OmVJErZPSqRtAeCNIpAECuACihWDDkBGB9MZG4JOAgUDCfKI7FBdLgIZIuXus6CGPyNYFbDQWwwl2RPR HmOVJvQFI7JdHoYANbUXPhWOldLZPnTNPmEXJ2XESnMYEuZJ3NWvWjTRSdOUIbVHPtLQMnMETbbi1XQC JfRJQkDhMjReVdFIZqJOAvIDoyYSGyBLQ7LDA3AVLq NUOpYG0QNyMnYTSqSPO5VcKsEUTkPJPkky9RDXVdEAGxSPNmUdXaCPQaNPWzNXblFVYmGWF1ZUi4XTAi TUSxRF4FYdYiPWXmPRMcVTNwSIUkSCUesq5KQRViZIFkLRd2QPMtOFGaPOVcWKjrJGOyKMO9GKB6UGHm XCArRS2BCoPnSBPnNnV7UcFfIOKhXEUdjs5FZXDlKB MxNhTmYkXsWDKxYXEcOEpgSQBcJQSoVVCtWKMtMDJbIC0SGjByLRJcJjF5WqawQWHzZELvkj0WEIGeME MjJSOaYRLlMWIdUEZoZYbhMXNlWAB7KRG7WNJsLJYnWK4GWnHpMMWzImGwIMurXYTdHGMttf9IPORsMG IqCEg9ThMtCHFjSRTqDBlsYLHuMRE7DIK5JMVlBTCj CN4NIyAxYQKmOcCiDElgZGOxJENqld1ETHToTUOmWbYoIuMaKSQfIDGcVLqyBFFcQIW0LKJ0RNFzUWSx XR8IQtBaQOKlGio5JIrbAJGfXBPipo0EPZBnDDMnEQH3NuCpNFFmXQVqMSsnNRToAYG6LFNtHWOwWHFc DD9GMkLhTEDtTetgSAIuDRQpMOKakk4ZLRUqVOHmSE BiOSVxUBRaKENeGDvoYDKiIAAnSjX9ANUoWSGkOJ5ZBnIaWRMzZaF2KVSrKOLmFBPmnl6HVPJvLLGaYL W6ARCdSYSqJKPtNZzfKEKrJRE8JTsbNQEdVRYkNF2BJnFmRRJjDzU3RSruFBDaXSYnoo5ZQVAgBWFnVd L9TPRxAHAjAGPaBSafNTXyXXY8CbQ1EXQuMHRhCP1F TyEjZGCmNaC3RZmxVKCjCRAcsz7BEDJuWDZeIkB3LWRdGGBiNECwMVpyBFIgJJX9DEY4YDPbCAHnVE6Q SgEjFNNkUfdrKfTyQSRqIVPuti3UGSEmCLLdEXv9HCWmFTJvFRKxDLmkUHDySFH8XWE5NBDsUUJxYV0R EfXpUFIjAkt5QeUmORGxMJBvar4NtZOowDevjr1DNU lZPu9XtPpdPCH9NVkkMp3wwYS5JNQfMMULHp5IifGxNVItSLUCCDvfRBTbITD3XMb8UxGcXVW8KYzyWH AhNlI4VvHoFcIvSUJ4UImgPbZ0VhtaYrSxGEInOXS4MQOfHJYgMtYdFxTmZKSuYKxlTVO+TU6dTXu+Pg 9To6AkceA4fjItQZfqOTHjBE0AAZPRZ2FEJw== ID Date Data Source [id number] 08/06/2020 12:10:00 PM EDT [facility] Name Value Range Interpretation Code Description Data [place] rce(s) Supporting Document(s) SARS coronavirus 2 RNA [Presence] in Res piratory specimen by MARK with probe detection NEGATIVE [facility] This lab was ordered by [facility] a nd reported by [facility]. ID Date Data Source [id number] 07/28/2020 01:05:00 PM EDT [facility] Name Value Range Interpretation Code Description Data [place] rce(s) Supporting Document(s) SARS coronavirus 2 RNA [Presence] in Res piratory specimen by MARK with probe detection NEGATIVE [facility] This lab was ordered by [facility] a nd reported by [facility]. ID Date Data Source [id number] 06/28/2020 07:41:00 PM EDT [facility] 1 OrderSheet [facility] Emergency Department [address] [place] [address] Phone #: [phone]- [phone] 06/28/2020 19:40 Patient: BRUNA LEE Sex: F [...] rce(s) Supporting Document(s) ID Date Data Source [id number] 06/28/2020 07:41:00 PM EDT [facility] 1 Medication Reconciliation Report [facility] Emergency Department [address] [place] [address] Phone #: ext- [phone] 06/28/2020 19:40 Patient: [...] Medication information:Not obtained. 2 Medication Reconciliation Report [facility] Emergency Department [address] [place] [address] Phone #: ext- [phone] 06/28/2020 19:40 Patient: [...] rce(s) Supporting Document(s) ID Date Data Source [id number] 06/28/2020 07:41:00 PM EDT [facility] 1 Medication Administration Record [facility] Emergency Department [address] [place] [address] Phone #: ext- [phone] 06/28/2020 19:40 Patient: [...] rce(s) Supporting Document(s) ID Date Data Source [id number] 06/28/2020 07:41:00 PM EDT [facility] 1 General Instructions [facility] Emergency Department [address] [place] [address] Phone #: ext- [phone] 06/28/2020 19:40 Patient: [...] patient. ADDITIONAL INFORMATIONDrug Abuse 2 General Instructions [facility] Emergency Department [address] [place] [address] Phone #: ext- [phone] 06/28/2020 19:40 Patient: BRUNA LEE Sex: F [...] to continue abusing drugs. 3 General Instructions [facility] Emergency Department [address] [place] [address] Phone #: ext- [phone] 06/28/2020 19:40 -- Patient: BRUNA LEE Sex: F : 1985 Age: 35y Eat a balanced diet and start a regular exercise program.Follow-up careFollow up with your healthcare provider, or as advised. Contact one of the resources below for help: National [place] on Alcoholism and Drug Dependence, www.ncadd.org, Narcotics Anonymous, www.na.org, National Alcohol and Substance Abuse Information Center, www.TrackIF.PixelFlow, . This center can refer you to a treatment program.Call [phone] if any of the following occur: Seizure [...] at an injection site 4 General Instructions [facility] Emergency Department [address] [place] [address] Phone #: ext- [phone] 06/28/2020 19:40 Patient: BRUNA LEE Sex: F : 1985 Age: 35y [phone] [employer]. [address] [place] [address]. All rights reserved. This information is not [...] yourself out of the 5 General Instructions [facility] Emergency Department [address] [place] [address] Phone #: ext- [phone] 06/28/2020 19:40 Patient: BRUNA LEE Sex: F [...] You have trouble speaking Your vision changes [phone] [employer]. [address] [place] [address], [place] [address]. All rights reserved. This information is not intended as asubstitute for professional medical care. Always follow your healthcare professional's instructions. You have been given the following additional information: Drug Abuse Headache, Tension 6 General Instructions [facility] Emergency Department [address] [place] [address] Phone #: ext- [phone] 06/28/2020 19:40 ------- Patient: BRUNA LEE Sex: F : 1985 Age: 35y(Electronically signed by RASHID Godwin 06/29/2020 20:04) Name Value Range Interpretation Code Description Data [place] rce(s) Supporting Document(s) ID Date Data Source [id number] 06/28/2020 07:41:00 PM EDT [facility] 1 Clinical Report - Nurses [facility] Emergency Department [address] [place] [address] Phone #: kyg- [phone] 06/28/2020 19:40 Patient: BRUNA LEE Sex: F [...] treated for.Pt states she was seen at [facility] and left AMA because she was not being seen. Pt is able to speak in fullclear sentences, in NAD at this time sating at 96% on RA. 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 [...] Chand R.N. 2 Clinical Report - Nurses [facility] Emergency Department [address] [place] [address] Phone #: ext- [phone] 06/28/2020 19:40 Patient: [...] no deficiencies. 3 Clinical Report - Nurses [facility] Emergency Department [address] [place] [address] Phone #: ext- [phone] 06/28/2020 19:40 Patient: [...] Mariana Trammell 4 Clinical Report - Nurses [facility] Emergency Department [address] [place] [address] Phone #: ext- [phone] 06/28/2020 19:40 Patient: [...] 100%. --20:46 06/28/20 Mariana Trammell.DISPOSITION / DISCHARGE [place] Coma Scale: 15- eyes open- spontaneous (4); best verbal response- oriented (5); best motor response- obeys commands (6). Departure time: 21:06/28/2020. Condition at departure: improved. No learning barriers present. Discharge instructions provided and reviewed with the patient. Reviewed referral to family practice for followup. Patient verbalized understanding. Written instructions not provided in Jamaican. The patient was discharged home. She left [...] rce(s) Supporting Document(s) ID Date Data Source [id number] 06/28/2020 07:41:00 PM EDT [facility] 1 Clinical Report - Physicians/Mid Levels [facility] Emergency Department [address] [place] [address] Phone #: ext- [phone] 06/28/2020 19:40 Patient: BRUNA LEE Sex: F [...] for. Pt states she was seen at [facility] and left AMA because she [...] Abuse.Schizophrenia.Pharyngitis.Polysubstance abuse. 2 Clinical Report - Physicians/[facility] Emergency Department [address] [place] [address] Phone #: [phone] bsj- [phone] 06/28/2020 19:40 Patient: BRUNA LEE Sex: F [...] ROM. 3 Clinical Report - Physicians/Mid Levels [facility] Emergency Department [address] [place] [address] Phone #: ext- [phone] 06/28/2020 19:40 Patient: [...] referral: 4 Clinical Report - Physicians/Mid Levels [facility] Emergency Department [address] [place] [address] Phone #: ext- [phone] 06/28/2020 19:40 Patient: BRUNA LEE Sex: F : 1985 Age: 35y e valuation and treatment. Summary of care provided to patient. Understanding of the discharge instructions verbalized by patient.(Electronically signed by RASHID Godwin 06/29/2020 20:04) Name Value Range Interpretation Code Description Data [place] rce(s) Supporting Document(s) ID Date Data Source [id number] 06/17/2020 08:41:00 [place] [address] RESPIRATORY CARE REPORT ==== ---------NAME------- NUMBER SEX AGE ADMIT DISC. XRAY# F/C TYPECOME BRUNA [id number] F 34 06/16/20 06/16/20 [id number] X6B E/R DATE OF : 1985 M/R# [id number] #: [id number] TR-03 LOCATION: EMERGENCY DEPT EKG [id number] COMP LETE:06/17/20 02:50 VMT [id number] PHYSICIAN: HIEU CLIFFORD KARAN Name Value Range Interpretation Code Description Data [place] rce(s) Supporting Document(s) ID Date Data Source [id number] 06/17/2020 10:02:00 AM EDT [facility] [address] [place] [address] PHONE: [phone] FAX: [phone] Name .................. : JESUS MOSLEY Acct Number.................. : [id number] ROOM. ................. : TR-03 Number ................... : [id number] Stay type ............. : E/R Discharge Date......... ... : 06/16/20 Admit Date ......... : 06/16/20 Admit Phys .................... : HIEU JENSEN Date of ....... : 1985 Family Phys ................... : NON STAFF Phone .................. : [phone] Age ................................ : 34 Film# .................. .:[id number] Sex ................................. : F Unsigned transcriptions are preliminary reports and do not represent a medical or legal document CHEST PORTABLE [id number] COMPLETE:06/16/20 19:31 KHAI 9302 Reason( s): Chest Pain PORTABLE CHEST X-RAY: INDICATION: Chest pain. FINDINGS: The cardiac and mediastinal silhouettes appear normal and the lungs are clear. The bones and soft tissues are normal. The upper abdomen is unremarkable. IMPRESSION: No acute disease identifiable. Electronically Reviewed and Signed By Dakota Fernández M.D. , 06/17/20 10:03, [facility] Transcribe Initials: DZ , Transcribe Date: 06/16/20 21:15, Dictation Date: Copy for: REJI Bundy via fax Copy for: EMERGENCY DEPT via [employer]IncentOne Copy for: 710 MED REC DISCHARGED Page 1 of 1 Name Value Range Interpretation Code Description Data [place] rce(s) Supporting Document(s) ID Date Data Source [id number] 06/16/2020 04:22:00 PM EDT [facility] 1 OrderSheet [facility] Emergency Department [address] [place] [address] Phone #: ext- [phone] 06/16/2020 16:20 Patient: [...] Description Priority Entered Acknowledged Initialed 2 OrderSheet [facility] Emergency Department [address] [place] [address] Phone #: ext- [phone] 06/16/2020 16:20 --------- [...] rce(s) Supporting Document(s) ID Date Data Source [id number] 06/16/2020 04:22:00 PM EDT [facility] 1 Medication Reconciliation Report [facility] Emergency Department [address] [place] [address] Phone #: ext- [phone] 06/16/2020 16:20 Patient: [...] to the patient:None. 2 Medication Reconciliation Report [facility] Emergency Department [address] [place] [address] Phone #: ext- [phone] 06/16/2020 16:20 Patient: BRUNA LEE Sex: F : 1985 Age: 34y Name Value Range Interpretation Code Description Data [facility](s) Supporting Document(s) ID Date Data Source [id number] 06/16/2020 04:22:00 PM EDT [place] [address] Medication Administration Record [facility] Emergency Department [address] [place] [address] Phone #: ext- [phone] 06/16/2020 16:20 Patient: BRUNA LEE Sex: F : 1985 Age: 34yWeight: 70.7 kgHeight/Length: 60 inBMI: 30.4ALLERGIES: Penicillins, Sulfa AntibioticsDate/Time Medication Administered Medication Ordered Name Value Range Interpretation Code Description Data [place] rce(s) Supporting Document(s) ID Date Data Source [id number] 06/16/2020 04:22:00 PM EDT [facility] 1 General Instructions [facility] Emergency Department [address] [place] [address] Phone #: ext- [phone] 06/16/2020 16:20 Patient: [...] with patientand understanding verbalized. 2 General Instructions [facility] Emergency Department [address] [place] [address] Phone #: ext- [phone] 06/16/2020 16:20 Patient: [...] may also be needed. 3 General Instructions [facility] Emergency Department [address] [place] [address] Phone #: ext- [phone] 06/16/2020 16:20 Patient: BRUNA LEE Sex: F : 1985 [facility] provider may prescribe medicine for pain, [...] begin to improve in thenext 24 hours.Call [phone] if any of these occur: Trouble breathing Confusion 4 General Instructions [facility] Emergency Department [address] [place] [address] Phone #: ext- [phone] 06/16/2020 16:20 Patient: BRUNA LEE Sex: F [...] water and you are getting dehydrated [employer]. [address] [place] [address]. All rights reserved. This information is not intended as asubstitute for professional medical care. Always follow your healthcare professional's instructions.Swain DietYour healthcare provider may recommend a bland diet if you have an upset stomach. It consists offoods that are mild and easy to digest. It is better to eat small frequent meals rather than 3 largemeals a day. 5 General Instructions [facility] Emergency Department [address] [place] [address] Phone #: ext- [phone] 06/16/2020 16:20 Patient: [...] of fruit, dried fruitMeats 6 General Instructions [facility] Emergency Department [address] [place] [address] Phone #: ext- [phone] 06/16/2020 16:20 Patient: [...] extracts, kristopher, cinnamon, thyme, mace, allspice, paprikaAvoid: [place] powder, cloves, pepper, seed spices, garlic, gravy pickles, highly seasoned saladdressings [phone] [employer]. [address] [place] [address]. All rights reserved. This information is not intended as asubstitute for professional medical care. Always follow your healthcare professional's instructions.Clear Liquid Diet 7 General Instructions [facility] Emergency Department [address] [place] [address] Phone #: eoe- [phone] 06/16/2020 16:20 Patient: BRUNA LEE Sex: F [...] grocery stores. You don't need aprescription. [employer]. [address] [place] [address]. All rights reserved. This information is not intended as asubstitute for professional medical care. Always follow your healthcare professional's instructions. You have been given the following additional information: Abdominal Pain, Unknown Cause, (Female) Diet, Swain (Adult) Clear Liquid Diet 8 General Instructions [facility] Emergency Department [address] [place] [address] Phone #: ext- [phone] 06/16/2020 16:20 Patient: BRUNA LEE Sex: F : 1985 Age: 34yNo strenuous activity until better. Rest at home for one days.(Electronically signed by RASHID Sanchez 06/16/2020 21:17) Name Value Range Interpretation Code Description Data [place] rce(s) Supporting Document(s) ID Date Data Source [id number] 06/16/2020 04:22:00 PM EDT [facility] 1 Clinical Report - Nurses [facility] Emergency Department [address] [place] [address] Phone #: ext- [phone] 06/16/2020 16:20 Patient: BRUNA LEE Sex: F : 1985 Age: 34yTRIAGEArrived by EMS. Historian: patient. Unaccompanied. ( went to [facility] today for feeling like she had beenpoisoned, she thinks her mother and sister poisoned, feels like she is going down hill with her health, shestates she is suing [facility] because they are not listening to her, [facility]).Acuity: LEVEL 4.Chief Complaint: BIZARRE BEHAVIOR.Alert.Onset. (1 year but getting worse).Treatment PIANO INSTRUCTOR:Took Tylenol. 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 2 Clinical Report - Nurses [facility] Emergency Department [address] [place] [address] Phone #: ext- [phone] 06/16/2020 16:20 [...] Maldonado R.N. 3 Clinical Report - Nurses [facility] Emergency Department [address] [place] [address] Phone #: ext- [phone] 06/16/2020 16:20 [id number] Sex: F : 1985 Age: 34y Interventions [...] Moreau, RN 4 Clinical Report - Nurses [facility] Emergency Department [address] [place] [address] Phone #: ext- [phone] 06/16/2020 16:20 Patient: [...] Jamaican. The patient was discharged by the physician recreation assistant. She was discharged home. She left [...] rce(s) Supporting Document(s) ID Date Data Source [id number] 06/16/2020 04:22:00 PM EDT [facility] 1 Clinical Report - Physicians/Mid Levels [facility] Emergency Department [address] [place] [address] Phone #: ext- [phone] 06/16/2020 16:20 Patient: [...] by a health care provider (went to [facility] today twice, escorted off property [...] Schizophrenia. Pharyngitis. 2 Clinical Report - Physicians/[facility] Emergency Department [address] [place] [address] Phone #: ext- [phone] 06/16/2020 16:20 Patient: [...] Reflexes normal. 3 Clinical Report - Physicians/[facility] Emergency Department [address] [place] [address] Phone #: ext- [phone] 06/16/2020 16:20 Patient: [...] Weeks post LMP 5.4-708 mU/mL 3-4 Weeks 217-42093 mU/mL 5-6 Weeks 4059-793498 mU/mL 7-8 Weeks 74900-945100 mU/mL 9-10 Weeks 90455-99782 mU/mL 12-14 Weeks 01372-06400 mU/mL 15-16 Weeks 8240-94841 mU/mL 17-18 Weeks CBC w Diff: (JENN: [...] PANEL 4 Clinical Report - Physicians/Mid Levels [facility] Emergency Department [address] [place] [address] Phone #: ext- [phone] 06/16/2020 16:20 Patient: [...] Male GFR Interprentation 20-49 yrs >60 mL/min Ogaxwp58-55 yrs >56 mL/min Normal 60-69 yrs >49 mL/min Normal 70-79yrs>42 mL/min Normal 80 and above >35 mL/min Normal Female GFRInterpretation 20-39 yrs >60 mL/min Normal 40-49 yrs >58 mL/minNormal 50-59 yrs >51 mL/min Normal 60-69 yrs >45 mL/min Vmpfjh90-25 yrs >39 mL/min Normal 80 and above >32 mL/min NormalETOH: (JENN: 06/16/2020 18:16) ( [facility] [place]/16/[place] 19:11) Final results Test Result Flag Units (Reference) ALCOHOL <10.0 MG/DL ALCOHOL % 0.01 % (0.00 - 0.01) *FOR MEDICAL PURPOSES ONLY*Lactic Acid: (JENN: 06/16/2020 18:16) ( [facility] [place]/16/2020 18:40) Final results Test Result Flag Units (Reference) LACTIC ACID 2.1 MMOL/L (0.2 - 2.2)Lipase: (JENN: 06/16/2020 18:16) ( [facility] 06/16/[facility] 19:11) Final results Test Result Flag Units (Reference) LIPASE 13 U/L (13 - 60)Magnesium: (JENN: 06/16/2020 18:16) ( [facility] 06/16/2020 19:11) Final results Test Result Flag Units (Reference) MAGNESIUM 2.2 MG/DL (1.7 - 2.2)Acetaminophen Level: (JENN: 06/16/2020 18:16) ( [facility] 06/16/2020 19:11) Final results Test Result Flag Units (Reference) ACETAMINOPHEN 8.7 UG/ML (0.0 - 30.0)Salicylate Level: (JENN: 06/16/2020 18:16) ( [facility] 06/16/2020 19:25) Final results Test Result Flag Units (Reference) 5 Clinical Report - Physicians/Mid Levels [facility] Emergency Department [address] [place] [address] Phone #: ext- [phone] 06/16/2020 16:20 Patient: [...] Thrombosis, Pulmonary Embolus, Tissue heart valves, Acute SD Atrial Fibrillation, Valvular heart disease and recurrent Systemic Embolism. -International Normalized Ratio (INR): 2.5 - 3.5 for Mechanical Prosthetic valve. Troponin-T: (JENN: 06/16/2020 18:16) ( [facility] 06/16/2020 19:25) Final results Test Result Flag Units (Reference) TROPONIN T <0.01 NG/ML (0.00 - 0.10) TROPONIN T0.1 ng/ml Recommended as the clinical threshold value forTroponin T. 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 7 Clinical Report - Physicians/Mid Levels [facility] Emergency Department [address] [place] [address] Phone #: ext- [phone] 06/16/2020 16:20 Patient: [...] rce(s) Supporting Document(s) ID Date Data Source [id number] 06/16/2020 07:31:00 PM EDT [facility] Name Value Range Interpretation Code Description Data [facility] rce(s) Supporting Document(s) DRUG SCREEN URINE [facility] URINE DRUG SCREEN Amphetamine [Presence] in Urine by Screen method PRESUMP POS ZAYNAB L: NEGATIVE [facility] BARBITURATES NEGATIVE NORMAL: NEGATIVE [facility] BENZO NEGATIVE NORMAL: NEGATIVE [facility] COCAINE PRESUMP POS NORMAL: NEGATIVE A [facility] Tetrahydrocannabinol [Presence] in Urine NEGATIVE NORMAL: NEGATIVE [facility] OPIATES NEGATIVE NORMAL: NEGATIVE [facility] Phencyclidine [Presence] in Urine by Screen method NEGATIVE NOR MAL: NEGATIVE [facility] \\BLDo\\URINE DRUG SCR EEN INTERPRETATION\\BLDx\\ THE CUTOFFF LEVELS FOR DETECTION ARE FOLLOWS: AMPHETAMINES 1000 ng/ml BARBITUARATES 200 ng/ml BENZODIAZEPINES 100 ng/ml THC 50 ng/ml PHENCYCLIDINE 25 ng/ml OPIATES 300 ng/ml COCAINE 300 ng/ml ALL POSITIVES ARE CONSIDERED PRESUMPTIVE POSITIVE CONFIRMATION WILL BE PERFORMED AT PHYSICIAN REQUEST. ID Date Data Source [id number] 06/16/2020 07:24:00 PM EDT [facility] Name Value Range Interpretation Code Description Data [place] rce(s) Supporting Document(s) URINALYSIS [facility] URINALYSIS SOURCE Clean Catch [facility] ital COLOR Yellow NORMAL: Yellow [facility] ospital CLARITY Clear NORMAL: Clear [facility] Specific gravity of Urine by Test strip 1.010 1.001 - 1.030 [facility] pH 7 5 - 9 [facility] Glucose [Mass/volume] in Urine by Test strip NORM NORMAL: Negat [facility] Bilirubin.total [Presence] in Urine by Test strip NEG NORMAL: Negative [facility] Ketones [Presence] in Urine by Test strip NEG NORMAL: Negative [facility] Protein [Mass/volume] in Urine by Test strip NEG NORMAL: Negat [facility] Nitrite [Presence] in Urine by Test strip NEG NORMAL: Negative [facility] [facility] BLOOD NEG NORMAL: Negative [facility] Leukocyte esterase [Presence] in Urine by Test strip NEG ZAYNAB L: Negative [facility] Urobilinogen [Mass/volume] in Urine by Test strip NOR less kenna n 1.0 mg/dL [facility] MICROSCOPIC Not Indicate [facility] ID Date Data Source [id number] 06/16/2020 07:25:00 PM EDT [facility] Name Value Range Interpretation Code Description Data [place] rce(s) Supporting Document(s) Prothrombin time (PT) 12.5 SECONDS 11.0 - 15.5 [facility] INR in Platelet poor plasma by Coagulation assay 0.89 0.93 - 1. 23 L [facility] aPTT in Blood by Coagulation assay 39.8 SECONDS 24.8 - 36.7 H [facility] \\BLDo\\INR INTERPRETATION\\BLDx\\ Therapeutic range for Coumadin and related oral anticoagulants. - International Normalized Ratio (INR): 2.0 - 3.0 for Venous Thrombosis, Pulmonary Embolus, Tissue heart valves, Acute SD Atrial Fibrillation, Valvular heart disease and recurrent Systemic Embolism. - International Normalized Ratio (INR): 2.5 - 3.5 for Mechanical Prosthetic valve. ID Date Data Source [id number] 06/16/2020 07:25:00 PM EDT [facility] Name Value Range Interpretation Code Description Data [place] rce(s) Supporting Document(s) Choriogonadotropin.intact [Units/volume] in Serum or Plasma <0.5 mIU/ mL [facility] Interpr etation: Less than 5 mU/mL: Negative 6-10 mU/mL: Borderline (suggest repeat in 48 hours) >10: Positive Approx HCG range (mU/mL) Weeks post LMP 5.4-708 mU/mL 3-4 Weeks 217-55353 mU/mL 5-6 Weeks 4059-094995 mU/mL 7-8 Weeks 83626-779180 mU/mL 9-10 Weeks 37028-65721 mU/mL 12-14 Weeks 31122-54206 mU/mL 15-16 Weeks 8240- 49798 mU/mL 17-18 Weeks ID Date Data Source [id number] 06/16/2020 07:25:00 PM EDT [facility] Name Value Range Interpretation Code Description Data [place] rce(s) Supporting Document(s) TROPONIN T <0.01 NG/ML 0.00 - 0.10 [facility] ospital TROPONIN T0.1 ng/ml Recommended as the c linical threshold value forTroponin T. ID Date Data Source [id number] 06/16/2020 07:25:00 PM EDT [facility] Name Value Range Interpretation Code Description Data [place] rce(s) Supporting Document(s) SALICYLATE <0.3 mg/dL 2.0 - 20.0 L [facility] ID Date Data Source [id number] 06/16/2020 07:25:00 PM EDT [facility] Name Value Range Interpretation Code Description Data [place] rce(s) Supporting Document(s) COMPREHENSIVE METABOLIC PANEL [facility] COMPREHENSIVE METABOLIC PANEL Sodium [Moles/volume] in Serum or Plasma 139 mEq/L 134 - 153 [facility] Potassium [Moles/volume] in Serum or Plasma 4.3 mEq/L 3.6 - 5.0 [facility] Chloride [Moles/volume] in Serum or Plasma 100 mEq/L 98 - 107 [facility] Carbon dioxide, total [Moles/volume] in Serum or Plasma 26 MEQ/L 22 - 30 [facility] Glucose [Mass/volume] in Serum or Plasma 76 MG/DL 70 - 99 [facility] BUN 9 MG/DL 7 - 21 [facility] Creatinine [Mass/volume] in Serum or Plasma 0.5 MG/DL 0.7 - 1.5 L [facility] BUN/CREAT 18 8 - 27 [facility] Protein [Mass/volume] in Serum or Plasma 8.0 G/DL 6.3 - 8.2 [facility] Albumin [Mass/volume] in Serum or Plasma 5.0 G/DL 3.9 - 5.0 [facility] Globulin [Mass/volume] in Serum by calculation 3.0 GM/DL 2.4 - 3.2 [facility] A/G RATIO 1.7 0.8 - 2.0 [facility] Calcium [Mass/volume] in Serum or Plasma 10.6 MG/DL 8.4 - 10.2 H [facility] Bilirubin.total [Mass/volume] in Serum or Plasma <0.7 MG/DL 0.2 - 1.3 [facility] Alkaline phosphatase [Enzymatic activity/volume] in Serum or Plasma 86 U/L 38 - 126 [facility] Aspartate aminotransferase [Enzymatic activity/volume] in Serum or Plasma 30 U/L 5 - 40 [facility] Alanine aminotransferase [Enzymatic activity/volume] in Seru m or Plasma 25 U/L 7 - 56 [facility] Anion gap 3 in Serum or Plasma 13.0 mmol/L 8.0 - 16.0 [facility] AGE 34 yrs [facility] NON-AA GFR >60 mL/min [facility] ital AFR AMER GFR >60 mL/min [facility] Male GFR In terprentation [...] >32 mL/min Normal ID Date Data Source [id number] 06/16/2020 07:11:00 PM EDT [facility] Name Value Range Interpretation Code Description Data [place] rce(s) Supporting Document(s) Acetaminophen [Presence] in Urine 8.7 UG/ML 0.0 - 30.0 [facility] ID Date Data Source [id number] 06/16/2020 07:11:00 PM EDT [facility] Name Value Range Interpretation Code Description Data [place] rce(s) Supporting Document(s) Magnesium [Mass/volume] in Serum or Plasma 2.2 MG/DL 1.7 - 2.2 [facility] ID Date Data Source [id number] 06/16/2020 07:11:00 PM T [facility] Name Value Range Interpretation Code Description Data [place] rce(s) Supporting Document(s) Lipase [Enzymatic activity/volume] in Serum or Plasma 13 U/L 13 - 60 [facility] ID Date Data Source [id number] 06/16/2020 07:11:00 PM T [facility] Name Value Range Interpretation Code Description Data [place] rce(s) Supporting Document(s) Ethanol [Moles/volume] in Blood <10.0 MG/DL [facility] ALCOHOL % 0.01 % 0.00 - 0.01 [facility] ital *FOR MEDICAL PURPOSES ONLY * ID Date Data Source [id number] 06/16/2020 07:06:00 PM EDT [facility] Name Value Range Interpretation Code Description Data [place] rce(s) Supporting Document(s) CBC W/AUTOMATED DIFF [facility] COMPLETE BLOOD COUNT Leukocytes [#/volume] in Blood by Automated count 6.8 10^3/uL 4.2 - 1 1.0 [facility] Erythrocytes [#/volume] in Blood by Automated count 4.84 10^6/uL 4. 20 - 5.40 [facility] Hemoglobin [Mass/volume] in Blood 14.3 g/dL 12.0 - 16.0 [facility] Hematocrit [Volume Fraction] of Blood by Automated count 43.3 % 3 7.0 - 47.0 [facility] Erythrocyte mean corpuscular volume [Entitic volume] by Auto mated count 89.5 fL 81.0 - 101 [facility] Erythrocyte mean corpuscular hemoglobin [Entitic mass] by Automated count 29.5 pg 27.0 - 34.0 [facility] Erythrocyte mean corpuscular hemoglobin concentration [Mass/volume] by Automated count 33.0 g/dL 31.0 - 36.0 [facility] Erythrocyte distribution width [Ratio] by Automated count 13.2 % 11.5 - 14.5 [facility] Platelets [#/volume] in Blood by Automated count 340 10^3/uL 150 - 45 0 [facility] Platelet mean volume [Entitic volume] in Blood by Automated count 9.9 fL 7.4 - 10.4 [facility] Neutrophils/100 leukocytes in Blood by Automated count 60.0 % 37. 0 - 80.0 [facility] Lymphocytes/100 leukocytes in Blood by Manual count 29.5 % 25.0 - 40.0 [facility] Monocytes/100 leukocytes in Blood by Automated count 7.4 % 3.0 - 8.0 [facility] Eosinophils/100 leukocytes in Blood by Automated count 2.2 % 0.0 - 7.0 [facility] Basophils/100 leukocytes in Blood by Automated count 0.6 % 0.0 - 2.5 [facility] %IG 0.3 % 0.0 - 0.0 H [facility] al %NRBC 0.0 % 0.0 - 0.0 [facility] al Neutrophils [#/volume] in Blood by Automated count 4.05 10^3/uL 2.00 - 6.90 [facility] Lymphocytes [#/volume] in Blood by Automated count 1.99 10^3/uL 0.60 - 3.40 [facility] Monocytes [#/volume] in Blood by Automated count 0.50 10^3/uL 0.00 - 0.90 [facility] Eosinophils [#/volume] in Blood by Automated count 0.15 10^3/uL 0.00 - 0.70 [facility] Basophils [#/volume] in Blood by Automated count 0.04 10^3/uL 0.00 - 0.20 [facility] #IG 0.02 10^3/uL 0.00 - 0.10 [facility] #NRBC 0.00 10^3/uL 0.00 - 0.00 [facility] ospital MANUAL DIFF NOT INDICATED [facility] RBC MORPH NOT INDICATED [facility] ID Date Data Source [id number] 06/16/2020 06:40:00 PM EDT [facility] Name Value Range Interpretation Code Description Data [place] rce(s) Supporting Document(s) pH of Serum or Plasma 7.37 7.32 - 7.43 [facility] pCO2 V 46.9 mm/HG 38.0 - 51.0 [facility] pO2 V 55.8 mm/HG 30.0 - 55.0 H [facility] Bicarbonate [Moles/volume] in Venous blood 26.5 meq/L 22.0 - 29.0 [facility] TCO2 V 28.0 meq/L 22.0 - 29.0 [facility] Base excess in Blood by calculation 0.7 -2.0 - 2.0 [facility] O2 SAT V 87.7 % 40.0 - 85.0 H [facility] ID Date Data Source [id number] 06/16/2020 06:40:00 PM EDT [facility] Name Value Range Interpretation Code Description Data [place] rce(s) Supporting Document(s) Lactate [Moles/volume] in Serum or Plasma 2.1 MMOL/L 0.2 - 2.2 [facility] ID Date Data Source [id number] 06/02/2020 09:35:00 PM EDT [facility] Name Value Range Interpretation Code Description Data [place] rce(s) Supporting Document(s) SARS-CoV-2 (COVID 19) NEGATIVE - SARS-CoV-2 (COVID19) [facility] This lab was ordered by [facility] a nd reported by [facility]. ID Date Data Source [id number] 04/21/2020 05:41:00 PM EST [facility] Name Value Range Interpretation Code Description Data [place] rce(s) Supporting Document(s) SARS coronavirus 2 RNA [Presence] in Res piratory specimen by MARK with probe detection NEGATIVE [facility] This lab was ordered by [facility] a nd reported by [facility]. ID Date Data Source [id number] 04/10/2020 02:50:00 PM EST [facility] Name Value Range Interpretation Code Description Data [place] rce(s) Supporting Document(s) SARS coronavirus 2 RNA [Presence] in Res piratory specimen by MARK with probe detection POSITIVE [facility] This lab was ordered by [facility] a nd reported by [facility]. ID Date Data Source [id number] 04/09/2020 02:48:00 AM EST [facility] Name Value Range Interpretation Code Description Data [place] rce(s) Supporting Document(s) SARS COVID ANTIGEN POSITIVE [facility] This lab was ordered by [facility] a nd reported by [facility]. ID Date Data Source [id number] 04/09/2020 02:46:00 AM EST [facility] Name Value Range Interpretation Code Description Data [place] rce(s) Supporting Document(s) SARS COVID ANTIGEN POSITIVE [facility] This lab was ordered by [facility] a nd reported by [facility]. ID Date Data Source [id number] 03/04/2020 12:09:00 PM EST [facility] Name Value Range Interpretation Code Description Data [place] rce(s) Supporting Document(s) FAZAL DIRECT Negative Negative [facility] Performed at: RN - [facility] [place] [id number] Director: Elsa Garcia MD, Phone: [phone] ID Date Data Source [id number] 03/04/2020 12:05:00 PM EST [facility] Name Value Range Interpretation Code Description Data [place] rce(s) Supporting Document(s) FAZAL Direct Negative Negative [facility] ID Date Data Source [id number] 03/03/2020 08:50:00 AM EST [facility] ADD ON TEST Name Value Range Interpretation Code Description Data [place] rce(s) Supporting Document(s) RHEUMATOID FACTOR SCREEN NEGATIVE NEGATIVE [facility] ID Date Data Source [id number] 03/03/2020 08:37:00 AM EST [facility] ADD ON TEST Name Value Range Interpretation Code Description Data [place] rce(s) Supporting Document(s) FREE T4 1.0 ng/dL 0.76-1.46 [facility] ID Date Data Source [id number] 03/03/2020 08:37:00 AM EST [facility] ADD ON TEST Name Value Range Interpretation Code Description Data [place] rce(s) Supporting Document(s) TSH 0.422 uIU/mL 0.36-3.74 [facility] ID Date Data Source [id number] 03/03/2020 08:11:00 AM EST [facility] ADD ON TEST Name Value Range Interpretation Code Description Data [place] rce(s) Supporting Document(s) C REACTIVE PROTEIN 15.6 mg/L 0.0-3.0 [facility] ID Date Data Source [id number] 03/03/2020 08:11:00 AM EST [facility] ADD ON TEST Name Value Range Interpretation Code Description Data [place] rce(s) Supporting Document(s) GLUCOSE 85 mg/dL 74-106 [facility] BLOOD UREA NITROGEN 11 mg/dL 7-18 [facility] ital CREATININE 0.88 mg/dL 0.6-1.0 [facility] SODIUM 135 mmol/L 136-145 L [facility] POTASSIUM 4.1 mmol/L 3.5-5.1 [facility] CHLORIDE 99 mmol/L 98-107 [facility] CO2 26 mmol/L 21-32 [facility] CALCIUM 8.8 mg/dL 8.5-10.1 [facility] ANION GAP 10.0 mmol/L 5-12 [facility] GLOMERULAR FILTRATION RATE 74 mL/min [facility] GFR IS CALCULATED IN mL/min/1.73m2 ZAYNAB L FUNCTION: >90MILDLY DECREASED: 60-89MILDY TO MODERATELY DECREASED: 45-59 MODERATELY TO SEVERELY DECREASED: 30-44SEVERELY DECREASED: 15-29RENAL FAILURE: <15 AST 32 U/L 15-37 [facility] ALT 32 U/L 12-78 [facility] ALKALINE PHOSPHATASE 65 U/L 46-116 [facility] pital TOTAL BILIRUBIN 0.2 mg/dL 0.2-1.0 [facility] TOTAL PROTEIN 6.9 g/dl 6.4-8.2 [facility] ALBUMIN 3.9 gm/dL 3.4-5.0 [facility] ID Date Data Source [id number] 03/01/2020 05:46:00 PM EST [facility] Name Value Range Interpretation Code Description Data [place] rce(s) Supporting Document(s) CHOLESTEROL 193 mg/dL 0-200 [facility] TRIGLYCERIDES 86 mg/dL 0-150 [facility] LDL CHOLESTEROL 111 mg/dL 0-100 H [facility] HDL CHOLESTEROL 65 mg/dL 40-60 H [facility] CHOL/HDL RATIO 3.0 0.0-5.0 [facility] ID Date Data Source [id number] 02/29/2020 10:40:00 AM EST [facility] Name Value Range Interpretation Code Description Data [place] rce(s) Supporting Document(s) SARS coronavirus 2 RNA [facility] This lab was ordered by [facility] and reported by [facility]. ID Date Data Source [id number] 12/10/2019 11:15:00 AM EDT [address] [address]SR[place]IHI NAME: BRUNA LEE#: [id number] PHYSICIAN: PRERNA RIOS MD ADM. DATE: 12/05/19ACCOUNT #: [id number] DISCH. DATE:DISCHARGE SUMMARYIDENTIFICATION: A 34-year-old female with schizoaffective disorder,polysubstance dependence.CHIEF COMPLAINT: "I don't know why I am here."REASON FOR ADMISSION: Post- overdose.HISTORY OF PRESENT ILLNESS: The patient was interviewed in ICU after sheoverdosed. The patient was seen in [facility] for a regularconsultation, she could [...] [place] last time in our service with [...] ABUSE: None.SOCIAL HISTORY: The patient is from [place], did not finish high school.She was in [...] The patient was discharged with the medications Rnlybg09 mg p.o. daily, Neurontin 600 mg p.o. [...] be enrolled in outpatient chemical dependence in [place].MENTAL STATUS EXAMINATION: The patient is pleasant, cooperative. [...] Dictated: 12/10/2019 09:34:34Date Transcribed: 12/10/2019 10:15:05JV/PUSDanielb #: [id number]: 12/10/19 0934 Electronically SignedTRANS:12/10/19 1115 PRERNA RIOS MDTRANS BY:IATDATE SIGNED:12/10/19REPORT COPY TO: Name Value Range Interpretation Code Description Data [place] rce(s) Supporting Document(s) ID Date Data Source [id number] 12/10/2019 06:43:00 AM EDT [place], [place] [address]PATIENT NAME: BRUNA LEE#: [id number] PHYSICIAN: PRERNA RIOS, [facility] #: [id number] ADM. DATE: 12/05/19PATIENT : 89 DISCH. DATE: [...] follow-upappointmentDischarge InformationDISCHARGE INFORMATION* Thank you for choosing [facility] and allowing us toserve you* Our Goal is to provide the highest quality of care.* This discharge information is to help you better understand your diagnosisand medication* Avoid taking arut-[place]-eweoara medicines unless approved by your physician.* Take your medications as prescribed. DO NOT stop any medications unlessapproved first* Weigh yourself daily. Report any gain of 5 lbs in a week* 24 Hour Crisis HOTLINE available: Call Reachout at [phone]* Chem. Dependency: [facility] [place] ([phone]) and [place] ([phone]) anytime Sunday thru Sunday 8 to 10am. [place] ([phone]) anytimeSunday thru Sunday 8 to 10am. [place] ([phone]) Sunday or Sunday from 8to 10am (Bring $30 to [facility]) SMOKIN G CESSATION* Smoking is dangerous to your health. It delays the healing process, andworks against your medications. Not smoking will improve your health* Our hospital participates with the Opt-to-Quit program. You will be contactedafter discharge by the [facility] Smoker's Quitline for support with tobaccocessation. You have the option once contacted to refuse this service.* You can also go online to www.RIWI. Free nicotine replacementsare available Attention* You should [...] rce(s) Supporting Document(s) ID Date Data Source [id number] 12/10/2019 02:15:00 AM EDT [address] [address]GYAVVDH NAME: BRUNA LEE Joe Orellana#: [id number] PHYSICIAN: PRERNA RIOS MD ADM. DATE: 12/05/19PROGRESS NOTE DATE: 12/09/19 RM.#: [id number] #: [id number] NOTEIDENTIFICATION: A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 04:47:00 PM EDT [facility] Name Value Range Interpretation Code Description Data [place] rce(s) Supporting Document(s) GLUCOSE 81 mg/dL 74-106 [facility] BLOOD UREA NITROGEN 10 mg/dL 7-18 [facility] ital CREATININE 0.7 mg/dL 0.6-1.0 [facility] SODIUM 139 mmol/L 136-145 [facility] POTASSIUM 4.3 mmol/L 3.5-5.1 [facility] CHLORIDE 102 mmol/L 98-107 [facility] CO2 33 mmol/L 21-32 H [facility] CALCIUM 9.2 mg/dL 8.5-10.1 [facility] ANION GAP 4.0 mmol/L 5-12 L [facility] GLOMERULAR FILTRATION RATE >90 mL/min [facility] GFR IS CALCULATED IN mL/min/1.73m2 ZAYNAB L FUNCTION: >90MILDLY DECREASED: 60-89MILDY TO MODERATELY DECREASED: 45-59 MODERATELY TO SEVERELY DECREASED: 30-44SEVERELY DECREASED: 15-29RENAL FAILURE: <15 AST 40 U/L 15-37 H [facility] ALT 27 U/L 12-78 [facility] ALKALINE PHOSPHATASE 68 U/L 46-116 [facility] pital TOTAL BILIRUBIN 0.3 mg/dL 0.2-1.0 [facility] TOTAL PROTEIN 7.4 g/dl 6.4-8.2 [facility] ALBUMIN 3.9 gm/dL 3.4-5.0 [facility] ID Date Data Source [id number] 12/04/2019 04:46:00 PM EDT [facility] TSYSORDER [id number] Name Value Range Interpretation Code Description Data [place] rce(s) Supporting Document(s) AMMONIA 39 umol/L 11-32 H [facility] ID Date Data Source [id number] 12/04/2019 04:19:00 PM EDT [facility] TSYSORDER [id number] Name Value Range Interpretation Code Description Data [place] rce(s) Supporting Document(s) WHITE BLOOD COUNT 9.8 K/mm3 4.0-10.0 [facility] RED BLOOD COUNT 4.11 M/mm3 4.00-5.50 [facility] HEMOGLOBIN 12.3 gm/dL 12.0-16.0 [facility] HEMATOCRIT 37.9 % 36.0-48.8 [facility] MEAN CELL VOLUME 92.2 fl 80-96 [facility] MEAN CORPUSCULAR HEMOGLOBIN 29.9 pg 27.0-31.0 [facility] MEAN CORPUSCULAR HGB CONC 32.5 g/dl 32.0-36.0 [facility] RED CELL DISTRIBUTION WIDTH 13.0 % 10.0-14.5 [facility] PLATELET COUNT 368 K/mm3 172-450 [facility] MEAN PLATELET VOLUME 9.5 fl 9.0-13.0 [facility] pital GRAN % 71.0 % 50-80.0 [facility] IG% 0.2 % 0.0-0.2 [facility] LYMPH % 20.5 % 25.0-50.0 L [facility] MONO % 7.1 % 2.0-10.0 [facility] EOS % 1.0 % 0-5.0 [facility] BASO % 0.2 % 0.0-2.0 [facility] GRAN # 7.0 K/mm3 2.0-8.00 [facility] IG# 0.0 K/mm3 0.0-0.2 [facility] LYMPH # 2.0 K/mm3 1.0-5.0 [facility] MONO # 0.7 K/mm3 0.10-1.20 [facility] EOS # 0.1 K/mm3 0.0-0.5 [facility] BASO # 0.0 K/mm3 0.0-0.2 [facility] ID Date Data Source [id number] 12/11/2019 08:09:00 PM EDT [facility] Name Value Range Interpretation Code Description Data [place] rce(s) Supporting Document(s) LEVETIRACETAM, S <1.0 ug/mL 10.0-40.0 [facility] Ver[facility] by repeat analysisThis test was developed and its performance characteristicsdetermined by [facility]. It has not been cleared orapproved by the Food and Drug Administration.Performed at: [facility] [address] [id number] Director: Robyn Julio MD, Phone: [phone] ID Date Data Source [id number] 12/11/2019 08:05:00 PM EDT [facility] Name Value Range Interpretation Code Description Data [place] rce(s) Supporting Document(s) Levetiracetam, S 10.0-40.0 Below low normal [facility] Verified by repeat analysisThis test was developed and its performance characteristicsdetermined by [facility]. It has not been cleared or approvedby the Food and Drug Administration. ID Date Data Source [id number] 12/04/2019 05:04:00 PM EDT [facility] [id number] [id number] Name Value Range Interpretation Code Description Data [place] rce(s) Supporting Document(s) DDIMER 0.74 mg/LFEU 0.19-0.60 H [facility] ID Date Data Source [id number] 12/04/2019 12:00:00 AM EDT [facility] Name Value Range Interpretation Code Description Data [place] rce(s) Supporting Document(s) 2019 Novel Coronavirus RNA [facility] This lab was ordered by [facility] L aboratory and reported by [facility]. Procedure Social History Code Duration Value Status Description Data Source(s ) 11/05/2020 12:00:00 AM EDT Heavy cigarette smoker (20- 39 cigs/day) completed Heavy cigarette smoker (20-39 cigs/day) Next[facility] ([facility]) Smoking 11/05/2020 12:00:00 AM EDT Heavy tobacco smoker comple keven Heavy tobacco smoker NextGen ([facility]) Alcohol intake 09/24/2020 12:00:00 AM EDT Ex-drinker (finding) comp leted Ex- drinker (finding) [facility] Tobacco use and exposure 09/24/2020 12:00:00 AM EDT Never used co mpleted Never used [facility] Cigarettes smoked current (pack per day) - Reported 09/25/19 12:00:00 AM EDT UNK completed [facility] Smoking 09/24/2020 12:00:00 AM EDT Smoker, current status unkn own completed Smoker, current status unknown [facility] Alcohol intake 08/06/2020 12:00:00 AM EDT Ex-drinker (finding) comp leted Ex- drinker (finding) [facility] Smoking 07/22/2020 12:00:00 AM EDT Current Smoker completed Curre nt Smoker eCW1 ([facility]) Smoking 07/22/2020 12:00:00 AM EDT Current Smoker completed Curre nt Smoker eCW1 ([facility]) Smoking 07/22/2020 12:00:00 AM EDT Current Smoker completed Curre nt Smoker eCW1 ([facility]) Smoking 06/14/2020 12:00:00 AM EDT Current Smoker completed Curre nt Smoker eCW1 ([facility]) Smoking 06/14/2020 12:00:00 AM EDT Current Smoker completed Curre nt Smoker eCW1 ([facility]) Smoking 06/14/2020 12:00:00 AM EDT Current Smoker completed Curre nt Smoker eCW1 ([facility]) Smoking 06/14/2020 12:00:00 AM EDT Current Smoker completed Curre nt Smoker eCW1 ([facility]) Smoking 03/30/2020 12:00:00 AM EST Current Smoker completed Curre nt Smoker eCW1 ([facility]) Smoking 03/30/2020 12:00:00 AM EST Current Smoker completed Curre nt Smoker eCW1 ([facility]) Smoking 03/30/2020 12:00:00 AM EST Current Smoker completed Curre nt Smoker eCW1 ([facility]) Smoking 03/30/2020 12:00:00 AM EST Current Smoker completed Curre nt Smoker eCW1 ([facility]) Smoking 03/30/2020 12:00:00 AM EST Current Smoker completed Curre nt Smoker eCW1 ([facility]) Smoking 03/30/2020 12:00:00 AM EST Current Smoker completed Curre nt Smoker eCW1 ([facility]) Smoking 03/30/2020 12:00:00 AM EST Current Smoker completed Curre nt Smoker eCW1 ([facility]) Smoking 03/30/2020 12:00:00 AM EST Current Smoker completed Curre nt Smoker eCW1 ([facility]) Smoking 03/30/2020 12:00:00 AM EST Current Smoker completed Curre nt Smoker eCW1 ([facility]) Smoking 03/30/2020 12:00:00 AM EST Current Smoker completed Curre nt Smoker eCW1 ([facility]) Smoking 03/30/2020 12:00:00 AM EST Current Smoker completed Curre nt Smoker eCW1 ([facility]) Smoking 03/30/2020 12:00:00 AM EST Current Smoker completed Curre nt Smoker eCW1 ([facility]) Smoking 03/30/2020 12:00:00 AM EST Current Smoker completed Curre nt Smoker eCW1 ([facility]) Smoking 03/30/2020 12:00:00 AM EST Current Smoker completed Curre nt Smoker eCW1 ([facility]) Smoking 03/30/2020 12:00:00 AM EST Current Smoker completed Curre nt Smoker eCW1 ([facility]) Smoking 03/30/2020 12:00:00 AM EST Current Smoker completed Curre nt Smoker eCW1 ([facility]) Smoking 03/30/2020 12:00:00 AM EST Current Smoker completed Curre nt Smoker eCW1 ([facility]) Smoking 03/01/2020 12:00:00 AM EST Current Smoker completed Curre nt Smoker eCW1 ([facility]) Smoking 03/01/2020 12:00:00 AM EST Current Smoker completed Curre nt Smoker eCW1 ([facility]) Smoking 03/01/2020 12:00:00 AM EST Current Smoker completed Curre nt Smoker eCW1 ([facility]) Smoking 02/18/2020 12:00:00 AM EST Current Smoker completed Curre nt Smoker eCW1 ([facility]) Smoking 12/24/2019 12:00:00 AM EDT Current Smoker completed Curre nt Smoker eCW1 ([facility]) Smoking 12/24/2019 12:00:00 AM EDT Current Smoker completed Curre nt Smoker eCW1 ([facility]) Smoking 12/24/2019 12:00:00 AM EDT Current Smoker completed Curre nt Smoker eCW1 ([facility]) Smoking 12/24/2019 12:00:00 AM EDT Current Smoker completed Curre nt Smoker eCW1 ([facility]) Smoking 12/24/2019 12:00:00 AM EDT Current Smoker completed Curre nt Smoker eCW1 ([facility]) Smoking 12/24/2019 12:00:00 AM EDT Current Smoker completed Curre nt Smoker eCW1 ([facility]) Smoking 12/24/2019 12:00:00 AM EDT Current Smoker completed Curre nt Smoker eCW1 ([facility]) Vital Signs ID Date Data Source UNK Name Value Range Interpretation Code Description Data Source(s) Diastolic blood pressure 56 mm[Hg] 56 mm[Hg] MATIAS ([facility]) Body height 61 [in_i] 61 [in_i] MATIAS ([facility]) Body mass index (BMI) [Ratio] 31.5 kg/m2 31.5 k g/m2 MATIAS ([facility]) Systolic blood pressure 83 mm[Hg] 83 mm[Hg] A THENA ([facility]) Body weight 2664 [oz_av] 2664 [oz_av] MATIAS ([facility]) Body height 152.40 cm 152.40 cm [facility]Gen ([facility] Body weight 74.026 kg 74.026 kg [facility] ([facility]) Systolic blood pressure 116 mm[Hg] 116 mm[Hg] N extGen ([facility]) Diastolic blood pressure 76 mm[Hg] 76 mm[Hg] NextGen ([facility]) Body mass index (BMI) [Ratio] 31.87 kg/m2 Overweight 31.87 kg/m2 NextGen ([facility]) Body height 60.0 [in_i] 60.0 [in_i] eCW1 ([facility]) Body weight 183.0 [lb_av] 183.0 [lb_av] eCW1 ([facility]) Body mass index (BMI) [Ratio] 35.74 kg/m2 35.74 kg/m2 eCW1 ([facility]) Heart rate 119 /min 119 /min eCW1 ([facility]) Respiratory rate 18 /min 18 /min eCW1 ([facility]) Oxygen saturation in Arterial blood by Pulse oximetry 98 % 98 % eCW1 ([facility]) Body height 60 [in_i] 60 [in_i] eCW1 ([facility]) Body weight 180.6 [lb_av] 180.6 [lb_av] eCW1 ([facility]) Body mass index (BMI) [Ratio] 35.27 kg/m2 35.27 kg/m2 eCW1 ([facility]) Heart rate 93 /min 93 /min eCW1 ([facility]) Respiratory rate 18 /min 18 /min eCW1 ([facility]) Oxygen saturation in Arterial blood by Pulse oximetry 99 % 99 % eCW1 ([facility]) Body height 60 [in_i] 60 [in_i] eCW1 ([facility]) Body weight 186.8 [lb_av] 186.8 [lb_av] eCW1 ([facility]) Body mass index (BMI) [Ratio] 36.48 kg/m2 36.48 kg/m2 eCW1 ([facility]) Heart rate 89 /min 89 /min eCW1 ([facility]) Respiratory rate 18 /min 18 /min eCW1 ([facility]) Oxygen saturation in Arterial blood by Pulse oximetry 97 % 97 % eCW1 ([facility]) Body height 60 [in_i] 60 [in_i] eCW1 ([facility]) Body weight 164.4 [lb_av] 164.4 [lb_av] eCW1 ([facility]) Body mass index (BMI) [Ratio] 32.10 kg/m2 32.10 kg/m2 eCW1 ([facility]) Body temperature 98.0 [degF] 98.0 [degF] eCW1 ( [facility]) Heart rate 86 /min 86 /min eCW1 ([facility]) Respiratory rate 18 /min 18 /min eCW1 ([facility]) Oxygen saturation in Arterial blood by Pulse oximetry 98 % 98 % eCW1 ([facility]) ID Date Data Source [id number] 10/18/2020 09:45:12 AM EDT [facility] Name Value Range Interpretation Code Description Data Source(s) TRANSFER FROM [facility] ID Date Data Source [id number] 08/27/2020 04:17:02 PM EDT [facility] Name Value Range Interpretation Code Description Data Source(s) TRANSFER FROM [facility] ID Date Data Source [id number] 08/17/2020 03:58:41 PM EDT [facility] Name Value Range Interpretation Code Description Data Source(s) TRANSFER FROM [facility] ID Date Data Source [id number] 12/26/2019 01:56:00 PM EDT [facility] Name Value Range Interpretation Code Description Data Source(s) WEIGHT 72.3 kilos 72.3 kilos [facility] HEIGHT 152.4 centimeters 152.4 centimeters [facility] WEIGHT 75 kilos 75 kilos [facility] HEIGHT 152.4 centimeters 152.4 centimeters [facility] ID Date Data Source [id number] 12/10/2019 06:07:00 AM EDT [facility] Name Value Range Interpretation Code Description Data Source(s) WEIGHT 68 kilos 68 kilos [facility] HEIGHT 152.4 centimeters 152.4 centimeters [facility] WEIGHT 68.4 kilos 68.4 kilos [facility] HEIGHT 152.4 centimeters 152.4 centimeters [facility] ID Date Data Source [id number] 12/08/2019 01:43:00 PM EDT [facility] Name Value Range Interpretation Code Description Data Source(s) WEIGHT 75 kilos 75 kilos [facility] HEIGHT 152.4 centimeters 152.4 centimeters [facility] ID Date Data Source [id number] 12/08/2019 01:43:00 PM [facility] Name Value Range Interpretation Code Description Data Source(s) WEIGHT 74 kilos 74 kilos [facility] al HEIGHT 160.02 centimeters 160.02 centimeter [facility] Patient Treatment Plan of Care Planned Activity Planned Date Details Description Data Source (s) Citalopram 10 MG Oral Tablet 09/30/2020 12:00:00 AM [facility] Levetiracetam 1000 MG Oral Tablet 09/29/2020 12:00:00 AM [facility] gabapentin 600 MG Oral Tablet 09/29/2020 12:00:00 AM [facility] Chlorpromazine hydrochloride 100 MG Oral Tablet 09/29/2020 12:00:00 AM [facility] Magnesium Hydroxide 80 MG/ML Oral Suspension 09/13/2020 08:49:03 AM [facility] sennosides, SHELTER 8.6 MG Oral Tablet 09/13/2020 08:49:03 AM [facility] Docusate Sodium 100 MG Oral Capsule 09/13/2020 08:49:03 AM [facility] Bisacodyl 10 MG Rectal Suppository 09/13/2020 08:49:03 AM [facility] Buprenorphine 8 MG / Naloxone 2 MG Oral Strip 08/18/2020 12:00:00 A M [facility] Diphenhydramine Hydrochloride 25 MG Oral Capsule 08/17/2020 10:11:0 1 AM [facility] Asenapine 10 MG Sublingual Tablet 08/17/2020 12:00:00 AM [facility] benztropine mesylate 1 MG Oral Tablet 08/17/2020 12:00:00 AM [facility] gabapentin 300 MG Oral Capsule 08/17/2020 12:00:00 AM [facility] Diphenhydramine Hydrochloride 25 MG Oral Capsule 08/17/2020 12:00:0 0 AM [facility] Buprenorphine 8 MG / Naloxone 2 MG Sublingual Tablet 12:00:00 AM [facility] Clonidine Hydrochloride 0.2 MG Oral Tablet 08/17/2020 12:00:00 AM [facility] Aluminum Hydroxide 40 MG/ML / Magnesium Hydroxide 40 MG/ML / Simethicone 4 MG/ML Oral Suspension 08/06/2020 07:39:14 PM EDT [facility] Magnesium Hydroxide 80 MG/ML Oral Suspension 08/06/2020 07:39:11 PM EDT [facility] gabapentin 600 MG Oral Tablet 07/17/2020 12:00:00 AM EDT [facility] Doxepin Hydrochloride 25 MG Oral Capsule 03/09/2020 12:00:00 AM EST eCW1 ([facility]) Doxepin Hydrochloride 25 MG Oral Capsule 03/09/2020 12:00:00 AM EST eCW1 ([facility]) Doxepin Hydrochloride 25 MG Oral Capsule 03/09/2020 12:00:00 AM EST eCW1 ([facility]) Clonidine Hydrochloride 0.2 MG Oral Tablet 12/24/2019 12:00:00 AM E DT eCW1 ([facility]) Clonidine Hydrochloride 0.2 MG Oral Tablet 12/24/2019 12:00:00 AM E DT eCW1 ([facility]) Clonidine Hydrochloride 0.2 MG Oral Tablet 12/24/2019 12:00:00 AM E DT eCW1 ([facility]) Clonidine Hydrochloride 0.2 MG Oral Tablet 12/24/2019 12:00:00 AM E DT eCW1 ([facility]) Clonidine Hydrochloride 0.2 MG Oral Tablet 12/24/2019 12:00:00 AM E DT eCW1 ([facility]) Clonidine Hydrochloride 0.2 MG Oral Tablet 12/24/2019 12:00:00 AM E DT eCW1 ([facility]) Clonidine Hydrochloride 0.2 MG Oral Tablet 12/24/2019 12:00:00 AM E DT eCW1 ([facility]) Sumatriptan 25 MG Oral Tablet MATIAS ([facility]) Buprenorphine 12 MG / Naloxone 3 MG Oral Strip [Suboxone] MATIAS ([facility]) benztropine mesylate 1 MG Oral Tablet [facility] Clonidine Hydrochloride 0.2 MG Oral Tablet [facility] Levetiracetam 1000 MG Oral Tablet [facility] Lurasidone Hydrochloride 40 MG Oral Tablet [facility] Trazodone Hydrochloride 50 MG Oral Tablet [facility] gabapentin 300 MG Oral Capsule [facility] 24 HR Nicotine 0.875 MG/HR Transdermal Patch [facility]
[2021-01-20 00:16] LABS: HEMATOCRIT 40.9 % (36.0-47.0); HEMOGLOBIN 13.3 g/dl (12.0-15.5); MEAN CORPUSCULAR HEMOGLOBIN 30.4 pg (27.0-33.0); MEAN CORPUSCULAR HGB CONC 32.5 g/dl (32.0-36.5); MEAN CORPUSCULAR VOLUME 93.4 fl (80.0-96.0); PLATELET COUNT, AUTOMATED 301 10^3/uL (150-450); RED BLOOD COUNT 4.38 10^6/uL (4.00-5.40); WHITE BLOOD COUNT 5.2 10^3/uL (4.0-10.0)
[2021-01-20 00:24] LABS: HCG, SERUM QUALITATIVE NEGATIVE (NEGATIVE)
[2021-01-20 00:34] LABS: AMPHETAMINES LEVEL URINE POSITIVE (NEGATIVE); BARBITURATES URINE NEGATIVE (NEGATIVE); BENZODIAZEPINES URINE NEGATIVE (NEGATIVE); CANNABINOIDS URINE NEGATIVE (NEGATIVE); COCAINE METABOLITE URINE NEGATIVE (NEGATIVE); METHADONE URINE POSITIVE (NEGATIVE); OPIATES URINE NEGATIVE (NEGATIVE); PHENCYCLIDINE URINE NEGATIVE (NEGATIVE)
[2021-01-20 00:34] LABS: ACETAMINOPHEN LEVEL < 2.0 UG/ML (10.0-30.0); ALBUMIN 3.6 GM/DL (3.2-5.2); ALT/SGPT 25 U/L (12-78); BILIRUBIN,DIRECT 0.1 MG/DL (0.0-0.2); BILIRUBIN,TOTAL 0.3 MG/DL (0.2-1.0); BLOOD UREA NITROGEN 14 MG/DL (7-18); CALCIUM LEVEL 9.1 MG/DL (8.5-10.1); CARBON DIOXIDE LEVEL 30 MEQ/L (21-32); CHLORIDE LEVEL 104 MEQ/L (98-107); ETHYL ALCOHOL (ETHANOL) < 0.003 % (0.000-0.010); GLOMERULAR FILTRATION RATE > 60.0 (>60); GLUCOSE, FASTING 125 MG/DL (70-100); POTASSIUM SERUM 3.9 MEQ/L (3.5-5.1); SALICYLATE LEVEL 3.9 MG/DL (5.0-30.0); SODIUM LEVEL 138 MEQ/L (136-145); THYROID STIMULATING HORMONE 0.436 uIU/ML (0.358-3.740); TOTAL PROTEIN 7.1 GM/DL (6.4-8.2)
[2021-01-20 01:14] LABS: RSV AMPLIFICATION NEGATIVE (NEGATIVE)
[2021-01-20] MEDS ORDERED: SUMAtriptan SUCCINATE 25 MG TAB PO PRN (02:20)
[2021-01-20] MEDS ORDERED: OLANZapine ORAL DISINTEGRATING TAB 5MG PO PRN (02:20)
[2021-01-20] MEDS ORDERED: MAALOX 30 ML SUSP *UDC PO PRN (02:20)
[2021-01-20] MEDS ORDERED: ALBUTEROL 90 MCG/ACT 8GM HFA INHALER INH PRN (02:20)
[2021-01-20] MEDS ORDERED: SENNA 8.6 MG TAB (SENOKOT) PO PRN (02:20)
[2021-01-20] MEDS ORDERED: MOM 30ML SUSPENSION UDC PO PRN (02:20)
[2021-01-20] MEDS ORDERED: PRAZOSIN 1 MG CAP PO PRN (02:20)
[2021-01-20] MEDS ORDERED: LEXA1TAB PO (02:59)
[2021-01-20] MEDS ORDERED: BUSP10TA PO (02:59)
[2021-01-20] MEDS ORDERED: METH10CO PO (02:59)
[2021-01-20] MEDS ORDERED: PRAZ1CAP PO (02:59)
[2021-01-20] MEDS ORDERED: GABA600T4 PO (02:59)
[2021-01-20] MEDS ORDERED: SUMA25TA3 PO (02:59)
[2021-01-20] MEDS ORDERED: KEPP10002 PO (02:59)
[2021-01-20] MEDS ORDERED: TRAZ-257 PO (02:59)
[2021-01-20] MEDS ORDERED: CLON0.2T PO (02:59)
[2021-01-20] MEDS ORDERED: SENN8.6T28 PO (02:59)
[2021-01-20] MEDS ORDERED: FURO20TA2 PO (02:59)
[2021-01-20] MEDS ORDERED: BENZ-52 PO (02:59)
[2021-01-20] MEDS ORDERED: HOME MED LIST COMPLETE! XX SCH (03:00)
--- OUTSIDE RECORDS SUMMARY | 2021-01-20 03:14 | CCD ---
Author Author [facility] Organization [facility] Address Unknown Phone Unavailable Care Team Providers Care Leadership Coach Name Role Phone Yessi Ritchie MD Unavailable [...] Unavailable Unavailable Yessi Ritchie MD Unavailable Unavailable eYssi Ritchie MD Unavailable Unavailable Yessi Ritchie MD [...] Chato OTERO MD Unavailable Unavailable DESJARLAIS, KAROLYN FOURDRINIER OPERATOR Unavailable Unavailable DESJARLAIS, KAROLYN FOURDRINIER OPERATOR Unavailable Unavailable DESJARLAIS, KAROLYN FOURDRINIER OPERATOR Unavailable Unavailable DESJARLAIS, KAROLYN FOURDRINIER OPERATOR Unavailable Unavailable DESJARLAIS, KAROLYN FOURDRINIER OPERATOR Unavailable Unavailable DESJARLAIS, KAROLYN FOURDRINIER OPERATOR Unavailable Unavailable DESJARLAIS, KAROLYN FOURDRINIER OPERATOR Unavailable Unavailable DESJARLAIS, KAROLYN FOURDRINIER OPERATOR Unavailable Unavailable DESJARLAIS, KAROLYN FOURDRINIER OPERATOR Unavailable Unavailable DESJARLAIS, KAROLYN FOURDRINIER OPERATOR Unavailable Unavailable Lester, A Mavis OPTICAL FABRICATION TECHNICIAN Unavailable Unavailable Lester, A Mavis OPTICAL FABRICATION TECHNICIAN Unavailable Unavailable Lester, A Mavis OPTICAL FABRICATION TECHNICIAN Unavailable Unavailable Lester, A Mavis OPTICAL FABRICATION TECHNICIAN Unavailable Unavailable Lester, A Mavis OPTICAL FABRICATION TECHNICIAN Unavailable Unavailable Lester, A Mavis OPTICAL FABRICATION TECHNICIAN Unavailable Unavailable Lester, A Mavis OPTICAL FABRICATION TECHNICIAN Unavailable Unavailable Lester, A Mavis OPTICAL FABRICATION TECHNICIAN Unavailable Unavailable Lester, A Mavis OPTICAL FABRICATION TECHNICIAN Unavailable Unavailable Lester, A Mavis OPTICAL FABRICATION TECHNICIAN Unavailable Unavailable Lester, A Mavis OPTICAL FABRICATION TECHNICIAN Unavailable Unavailable Lester, A Mavis OPTICAL FABRICATION TECHNICIAN Unavailable Unavailable Lester, A Mavis OPTICAL FABRICATION TECHNICIAN Unavailable Unavailable Lester, A Mavis OPTICAL FABRICATION TECHNICIAN Unavailable Unavailable Lester, A Mavis OPTICAL FABRICATION TECHNICIAN Unavailable Unavailable Lester, A Mavis OPTICAL FABRICATION TECHNICIAN Unavailable Unavailable Lester, A Mavis OPTICAL FABRICATION TECHNICIAN Unavailable Unavailable Lester, A Mavis OPTICAL FABRICATION TECHNICIAN Unavailable Unavailable Lester, A Mavis OPTICAL FABRICATION TECHNICIAN Unavailable Unavailable Lester, A Mavis OPTICAL FABRICATION TECHNICIAN Unavailable Unavailable Lester, A Mavis OPTICAL FABRICATION TECHNICIAN Unavailable Unavailable Lester, A Mavis OPTICAL FABRICATION TECHNICIAN Unavailable Unavailable Lester, A Mavis OPTICAL FABRICATION TECHNICIAN Unavailable Unavailable Lester, A Mavis OPTICAL FABRICATION TECHNICIAN Unavailable Unavailable Lester, A Mavis OPTICAL FABRICATION TECHNICIAN Unavailable Unavailable Lester, A Mavis OPTICAL FABRICATION TECHNICIAN Unavailable Unavailable Lester, A Mavis OPTICAL FABRICATION TECHNICIAN Unavailable Unavailable Lester, A Mavis OPTICAL FABRICATION TECHNICIAN Unavailable Unavailable Lester, A Mavis OPTICAL FABRICATION TECHNICIAN Unavailable Unavailable Lester, A Mavis OPTICAL FABRICATION TECHNICIAN Unavailable Unavailable Lester, A Mavis OPTICAL FABRICATION TECHNICIAN Unavailable Unavailable Kori STEVEN MD Unavailable Unavailable Kori STEVEN MD Unavailable Unavailable Kori STEVEN MD Unavailable Unavailable Kori STEVEN MD Unavailable Unavailable Kori STEVEN MD Unavailable Unavailable Kori STEVEN MD Unavailable Unavailable Kori STEVEN MD Unavailable Unavailable Kori STEVEN MD Unavailable Unavailable Kori STEVEN MD Unavailable Unavailable Kori STEVEN MD Unavailable Unavailable Kori SETVEN MD Unavailable Unavailable Kori STEVEN MD Unavailable Unavailable Kori STEVEN MD Unavailable Unavailable TENISHAKori RUSH MD Unavailable Unavailable Kori STEVEN MD Unavailable Unavailable TENISHAKori RUSH MD Unavailable Unavailable Kori STEVEN MD Unavailable Unavailable Kroi STEVEN MD Unavailable Unavailable TENISHAKori RUSH MD Unavailable Unavailable Kori STEVEN MD Unavailable Unavailable DEE DEE BAPTIST MD Unavailable Unavailable DEE DEE BAPTIST MD Unavailable Unavailable FUNEZ, BAPTIST MD Unavailable Unavailable FUNEZ, BAPTIST MD Unavailable Unavailable FUNEZ, BAPTIST MD Unavailable Unavailable FUNEZ, BAPTIST MD Unavailable Unavailable FUNEZ, BAPTIST MD Unavailable Unavailable FUNEZ, BAPTIST MD Unavailable Unavailable Ching, Reginah W Kassidy OPTICAL FABRICATION TECHNICIAN-C Unavailable Unavailabl e Ching, Reginah W Kassidy OPTICAL FABRICATION TECHNICIAN-C Unavailable Unavailabl e Ching, Reginah W Kassidy OPTICAL FABRICATION TECHNICIAN-C Unavailable Unavailabl e Ching, Reginah W Kassidy OPTICAL FABRICATION TECHNICIAN-C Unavailable Unavailabl e Ching, Reginah W Kassidy OPTICAL FABRICATION TECHNICIAN-C Unavailable Unavailabl e Ching, Reginah W Kassidy OPTICAL FABRICATION TECHNICIAN-C Unavailable Unavailabl e Ching, Reginah W Kassidy OPTICAL FABRICATION TECHNICIAN-C Unavailable Unavailabl e Ching, Reginah W Kassidy OPTICAL FABRICATION TECHNICIAN-C Unavailable Unavailabl e Ching, Reginah W Kassidy OPTICAL FABRICATION TECHNICIAN-C Unavailable Unavailabl e Ching, Reginah W Kassidy OPTICAL FABRICATION TECHNICIAN-C Unavailable Unavailabl e Ching, Reginah W Kassidy OPTICAL FABRICATION TECHNICIAN-C Unavailable Unavailabl e Ching, Reginah W Kassidy OPTICAL FABRICATION TECHNICIAN-C Unavailable Unavailabl e Ching, Reginah W Kassidy OPTICAL FABRICATION TECHNICIAN-C Unavailable Unavailabl e Ching, Reginah W Kassidy OPTICAL FABRICATION TECHNICIAN-C Unavailable Unavailabl e Ching, Reginah W Kassidy OPTICAL FABRICATION TECHNICIAN-C Unavailable Unavailabl e Ching, Reginah W Kassidy OPTICAL FABRICATION TECHNICIAN-C Unavailable Unavailabl e Ching, Elijah Ballyce OPTICAL FABRICATION TECHNICIAN-C Unavailable Unavailabl e Ching, Elijah Ballyce OPTICAL FABRICATION TECHNICIAN-C Unavailable Unavailabl e Ching, Elijah Ballyce OPTICAL FABRICATION TECHNICIAN-C Unavailable Unavailabl e Ching, Elijah W Kassidy OPTICAL FABRICATION TECHNICIAN-C Unavailable Unavailabl e Ching, Elijah W Kassidy OPTICAL FABRICATION TECHNICIAN-C Unavailable Unavailabl e Ching, Elijah W Kassidy OPTICAL FABRICATION TECHNICIAN-C Unavailable Unavailabl e Ching, Elijah W Kassidy OPTICAL FABRICATION TECHNICIAN-C Unavailable Unavailabl e Ching, Elijah W Kassidy OPTICAL FABRICATION TECHNICIAN-C Unavailable Unavailabl e Ching, Elijah W Kassidy OPTICAL FABRICATION TECHNICIAN-C Unavailable Unavailabl e Ching, Elijah Ballyce OPTICAL FABRICATION TECHNICIAN-C Unavailable Unavailabl e Ching, Elijah W Kassidy OPTICAL FABRICATION TECHNICIAN-C Unavailable Unavailabl e Ching, Elijah Ballyce OPTICAL FABRICATION TECHNICIAN-C Unavailable Unavailabl e Ching, Elijah W Kassidy OPTICAL FABRICATION TECHNICIAN-C Unavailable Unavailabl e Ching, Elijah Ballyce OPTICAL FABRICATION TECHNICIAN-C Unavailable Unavailabl e Ching, Elijah Juareze OPTICAL FABRICATION TECHNICIAN-C Unavailable Unavailabl e Ching, Elijah Ballyce OPTICAL FABRICATION TECHNICIAN-C Unavailable Unavailabl e LESTER, MATIAS PA Unavailable [...] MAHESH RECINOS MD Unavailable Unavailable Mavis Batista OPTICAL FABRICATION TECHNICIAN OPTICAL FABRICATION TECHNICIAN Unavailable Unavailable KATRIN BLUM MD Unavailable Unavailable [...] Unavailable PATTON, OLUMUYIWA Unavailable Unavailable ESCALERA, ANAHI FOURDRINIER OPERATOR Unavailable Unavailable ESCALERA, ANAHI FOURDRINIER OPERATOR Unavailable Unavailable ESCALERA, ANAHI FOURDRINIER OPERATOR Unavailable Unavailable BEHZAD SOTO MD Unavailable Unavailable [...] is protected by Article 27-F of the [facility] Public Health law. If you continue you may have access to information: Regarding HIV / AIDS; Provided by facilities licensed or operated by the [facility] Office of Mental Health; or Provided by the [facility] Office for People With Developmental Disabilities. If such information is present, then the following [facility] mandated warning applies: This information [...] law may result in a fine or assisted sentence or both. A general authorization for the release of medical or other information is NOT sufficient authorization for further disc losure. Allergies and Adverse Reactions Type Description Substance Reaction Status Data Source(s ) Propensity to adverse reactions ZIPRASIDONE ZIPRASIDONE [facility] Propensity to adverse reactions TRIMETHOPRIM Trimethoprim [facility] Propensity to adverse reactions SULFAMETHOXAZOLE Sulfamethoxazole [facility] Propensity to adverse reactions PENICILLINS Penicillin [facility] Propensity to adverse reactions HALOPERIDOL HALOPERIDOL [facility] Propensity to adverse reactions DEXTROAMPHETAMINE DEXTROAMPHETAMINE [facility] Drug allergy Drug allergy AMOXICLIIN SWELLING, HIVES [facility] Drug allergy olanzapine olanzapine [facility] Drug allergy trimethoprim trimethoprim "BLISTERS IN MOUTH" [facility] Drug allergy sulfamethoxazole sulfamethoxazole "BLISTERS IN MOUTH" [facility] Drug allergy haloperidol haloperidol [facility] Drug allergy Sulfa (Sulfonamide Antibiotics) Sulfa (Sulfonami de Antibiotics) "BLISTERS IN MOUTH" [facility] Drug allergy Penicillins Penicillins SWELLING, HIVES R [facility] Encounters Encounter Providers Location Date Indications Data Source(s ) Emergency Attender: PETR HOOD MDAttender: APURVA PATTON [id number] 01/12/2021 02:21:00 PM EST - 01/13/2021 08:36:00 AM EST [facility] Patient discharged. Emergency Attender: MICHAEL RAMSEY MDConsultant: HONEY F NON 01/11/2021 11:07:00 PM EST - 01/12/2021 12:45:00 PM EST [facility] Patient discharged. Outpatient Attender: KAROLYN VAN NP 11/24/2020 03: 20:00 PM EDT [facility] Francesco Ritchie MD: [address] [place] [phone], Ph. Attender: Francesco Ritchie MD [place] - [facility] Medical 11/12/2020 12:00:00 AM EDT MATIAS ([facility]) OutpatientOFFICE VISIT, EST Attender: Nora MIKE PPNCNY [place] 11/05/2020 01:30:00 PM EDT - 11/05/2020 01:30:00 PM EDT Delusional disorders [facility] ([facility]) Delusional disorders Emergency Attender: EVONNE HAGENConsultant: STAFF NON 11/03/2020 11:35:00 AM EDT - 11/03/2020 03:27:00 PM EDT [facility] Patient discharged. Outpatient [facility] 10/12/2020 12:00:00 AM EDT eCW1 ([facility]) Emergency Attender: Matt Ruby MDConsultant: STAFF NON 10/03/2020 06:06:00 PM EDT - 10/03/2020 07:27:00 PM EDT [facility] Patient discharged. Inpatient Attender: MIRLANDE Elizabeth nder: PETR HOOD MDAdmitter: PETR HOOD MDReferrer: ANAHI ESCALERA FOURDRINIER OPERATOR [id number] 09/11/2020 03:40:00 PM EDT - 09/29/2020 03:01:00 PM EDT [facility] Patient discharged. Emergency Attender: ZAYNAB STEVEN MDConsultant: STAFF NON 09/09/2020 04:46:00 PM EDT - 09/09/2020 09:35:00 PM EDT [facility] Patient discharged. Outpatient Attender: KAROLYN VAN FOURDRINIER OPERATOR 09/03/2020 11: 00:00 AM EDT [facility] Outpatient [facility] 08/31/2020 12:00:00 AM EDT eCW1 ([facility] [place]) Inpatient Attender: MIRLANDE FUNEZ MDAtte nder: GENO TYE MDAdmitter: MIRLANDE FUNEZ MDReferrer: KARI OTERO MD [id number] 08/25/2020 03:33:00 PM EDT - 08/27/2020 12:52:00 PM EDT [facility] Patient discharged. Inpatient Attender: MIRLANDE Elizabeth nder: PETR HOOD MDAttender: Hiral Liriano MDAdmitter: PETR HOOD MDReferrer: PETR HOOD MD [id number] 08/06/2020 12:00:00 AM EDT - 08/17/2020 12:08:00 PM EDT Suicidal ideations [facility] Suicidal ideations Patient discharged. Outpatient [facility] 07/22/2020 12:00:00 AM EDT eCW1 ([facility] [place]) Outpatient Attender: Jane Edward 07/15/2020 08:03:00 AM E DT [facility] Outpatient [facility] 07/15/2020 12:00:00 AM EDT eCW1 ([facility] [place]) Outpatient [facility] 07/12/2020 12:00:00 AM EDT eCW1 ([facility] [place]) Emergency Attender: EVONNE Lackeyant: STAFF NON 06/28/2020 07:41:00 PM EDT - 06/28/2020 09:08:00 PM EDT [facility] Patient discharged. Emergency Attender: EVONNE Lackeyant: STAFF NON 06/16/2020 04:22:00 PM EDT - 06/16/2020 08:01:00 PM EDT [facility] Patient discharged. Outpatient Attender: Jane EdwardAttender: JANE EDWARD 06/16/2020 09:02:00 AM EDT [facility] Outpatient [facility] 06/14/2020 12:00:00 AM EDT eCW1 ([facility] [place]) Outpatient [facility] 06/11/2020 12:00:00 AM EDT eCW1 ([facility] [place]) Outpatient Attender: Jane Stonerender: JANE EDWARD 05/26/2020 05:00:00 PM EDT [facility] Outpatient [facility] 05/26/2020 12:00:00 AM EDT eCW1 ([facility]) Outpatient [facility] 05/24/2020 12:00:00 AM EDT eCW1 ([facility]) Outpatient [facility] 05/24/2020 12:00:00 AM EDT eCW1 ([facility]) Outpatient [facility] 05/14/2020 12:00:00 AM EDT eCW1 ([facility]) Outpatient [facility] 05/04/2020 12:00:00 AM EST eCW1 ([facility]) Outpatient Attender: KAROLYN VAN NP 04/29/2020 01: 20:00 PM EST [facility] Outpatient [facility] 04/28/2020 12:00:00 AM EST eCW1 ([facility]) Outpatient [facility] 04/28/2020 12:00:00 AM EST eCW1 ([facility]) Outpatient [facility] 04/23/2020 12:00:00 AM EST eCW1 ([facility]) Outpatient Attender: Jane EdwardAttender: JANE EDWARD 04/20/2020 03:00:00 PM EST [facility] Outpatient [facility] 04/19/2020 12:00:00 AM EST eCW1 ([facility]) Outpatient [facility] 04/16/2020 12:00:00 AM EST eCW1 ([facility]) Outpatient Attender: FAHAD MOONEY MD 04/15/2020 09:4 5:00 AM EST [facility] Outpatient [facility] 04/12/2020 12:00:00 AM EST eCW1 ([facility]) Outpatient [facility] 04/12/2020 12:00:00 AM EST eCW1 ([facility]) Outpatient [facility] 04/08/2020 12:00:00 AM EST eCW1 ([facility]) Outpatient [facility] 04/08/2020 12:00:00 AM EST eCW1 ([facility]) Outpatient [facility] 04/08/2020 12:00:00 AM EST eCW1 ([facility] [place]) Outpatient [facility] 04/05/2020 12:00:00 AM EST eCW1 ([facility] [place]) Outpatient Attender: NATHAN PAUL PA-C 03/30/2020 10:30:00 AM [facility] Outpatient Attender: Shira Youngblood PA-C 03/30/2020 10:18 :00 AM [facility] Outpatient [facility] 03/30/2020 12:00:00 AM EST eCW1 ([facility] [place]) Outpatient Attender: Jane EdwardAttender: JANE EDWARD 03/23/2020 02:00:00 PM [facility] Outpatient Attender: Jane EdwardAttender: JANE EDWARD 03/17/2020 10:30:00 AM [facility] Outpatient Attender: Jane Stonerender: JANE EDWARD 03/11/2020 04:00:00 PM [facility] Outpatient Attender: FAHAD MOONEY MD 03/11/2020 06:3 0:00 AM [facility] Admission cancelled. Disregard status an d admitted date. Outpatient Attender: KAROLYN VAN NP 03/09/2020 03: 40:00 PM [facility] Outpatient [facility] 03/03/2020 12:00:00 AM EST eCW1 ([facility] [place]) Outpatient Attender: Shira Becerraferrer: Shira Youngblood PA-C EMERGENCY ROOM-LAB 03/01/2020 04:49:00 PM EST - 03/01/2020 04:49:00 PM [facility] Outpatient Attender: Shira Youngblood PA-C 03/01/2020 03:45 :00 PM [facility] Outpatient [facility] 03/01/2020 12:00:00 AM EST eCW1 ([facility] [place]) Outpatient [facility] 03/01/2020 12:00:00 AM EST eCW1 ([facility] [place]) Outpatient Attender: KAROLYN VAN NP 02/18/2020 02: 40:00 PM [facility] Outpatient Attender: Kassidy SERRANO 02/18/2020 10:00:0 0 AM EST [facility] Outpatient [facility] 02/18/2020 12:00:00 AM EST eCW1 ([facility]) Outpatient [facility] 02/10/2020 12:00:00 AM EST eCW1 ([facility] [place]) Outpatient [facility] 02/03/2020 12:00:00 AM EST eCW1 ([facility]) Outpatient [facility] 01/14/2020 12:00:00 AM EST eCW1 ([facility] [place]) Outpatient [facility] 01/06/2020 12:00:00 AM EST eCW1 ([facility] [place]) Outpatient Attender: JOHNATHON PATEL 01/02/2020 10:06:00 A [facility] Outpatient [facility] 01/02/2020 12:00:00 AM EST eCW1 ([facility] [place]) Outpatient Attender: Jane EdwardAttender: JANE EDWARD 01/01/2020 02:30:00 PM [facility] Outpatient Attender: KAROLYN VAN NP 12/24/2019 11: 00:00 AM [facility] Outpatient Attender: Shira Youngblood PA-C [facility]/24/[facility] 12:00:00 AM EDT eCW1 ([facility]) Outpatient Attender: Jane Stonerender: JANE EDWARD [facility] 12/23/2019 12:00:00 AM EDT eCW1 ([facility]) Outpatient Attender: Mavis DEIGO FP 12/12/2019 11:3 5:02 AM EDT [facility] Outpatient Attender: Jane Stonerender: JANE EDWARD 12/11/[facility] 12/09/2019 12:00:00 AM EDT eCW1 ([facility]) Outpatient Attender: Mavis DIEGO FP 12/05/2019 01:2 6:01 PM EDT [facility] Inpatient Attender: PRERNA RIOS MDAdmitter: PRERNA Alvarado MD ER-3RD 12/05/2019 10:08:00 AM EDT - 12/10/2019 01:07:00 PM EDT [facility] Patient discharged. Outpatient Attender: NATHAN PAUL PA-C 12/05/2019 09:03:00 AM [facility] Admission cancelled. Disregard status an d admitted date. Inpatient Attender: BEHZAD SOTO MD Attender: BEHZAD SOTO MDAttender: DIOGENES BUENO MDAttender: DIOGENES BUENO MDAdmitter: BEHZAD SOTO MD ER-ICU 12/04/2019 11:06:00 PM EDT - 12/05/2019 10:03:00 AM EDT [facility] Patient discharged. Emergency Attender: GINGER Salaser: Melissa Youngblood PA-C EMERGENCY ROOM-ER 12/04/2019 04:21:00 PM EDT - 12/04/2019 08:40:00 PM [facility] Patient discharged. Outpatient Attender: KAROLYN VAN NP 12/04/2019 03: 11:00 PM [facility] Outpatient Attender: Mavis PATEL 11/29/2019 07:0 4:03 PM [facility] Outpatient Attender: JOHNATHON PATEL 11/29/2019 07:04:01 P M [facility] Outpatient Attender: Mavis PATEL 11/24/2019 12:2 9:00 PM [facility] Outpatient Attender: KAROLYN VAN NP 11/04/2019 11: 40:00 AM [facility] Outpatient Attender: Shira Youngblood PA-C 10/31/2019 09:06 :00 AM [facility] Outpatient Attender: Jane EdwardAttender: JANE EDWARD 10/27/2019 11:00:00 AM [facility] Outpatient Attender: KAROLYN VAN NP 10/21/2019 03: 20:00 PM [facility] Outpatient Attender: KATRIN BLUM MDAttender: KATRIN BLUM 10/06/2019 09:37:00 AM [facility] Outpatient Attender: KATRIN BLUM MDAttender: KATRIN BLUM 08/04/2019 09:42:00 AM [facility] Outpatient Attender: KATRIN BLUM MDAttender: KATRIN BLUM 07/07/2019 03:30:00 PM [facility] Outpatient Attender: KATRIN BLUM MDAttender: KATRIN BLUM 04/21/2019 10:29:00 AM [facility] Outpatient Attender: MAHESH RECINOS MDAttender: MAHESH RECINOS 02/24/2019 01:46:00 PM [facility] Outpatient Attender: Jane EdwardAttender: JANE EDWARD 02/21/2019 10:00:00 AM [facility] Outpatient Attender: MAHESH RECINOS MDAttender: MAHESH RECINOS 02/10/2019 02:18:00 PM [facility] Inpatient Attender: CHAO Ferrell harjinder: PRERNA RIOS MDAdmitter: PRERNA RIOS MD ER-3RD 12/23/2018 04:01:00 PM EDT - 12/26/2018 01:22:00 PM T [facility] Patient discharged. Inpatient Attender: ONDINA RAMIREZ MDAdmitter: ONDINA RAMIREZ MD E R-ICU 12/19/2018 05:26:00 PM EDT - 12/23/2018 03:42:00 PM EDT [facility] Patient discharged. Emergency Attender: [...] A DAY NEEDED FOR CONSTIPATION SOLD: 11/04/2020 [facility] Clonidine Hydrochloride 0.2 MG Oral Tablet [...] active Take 1 tablet by mouth d [facility] Buprenorphine 8 MG / Naloxone 2 MG Oral Strip buprenorphine-naloxone (SUBOXONE) 8-2 MG per sublingual film 2 Film buprenorphine-naloxone (SUBOXONE) 8-2 MG per sublingual film 2 Film 09/29/2020 09:00:00 AM EDT 2 {film} Sublingual active 2 Film, Sublingual, Daily Standard, First dose (after last reorder) on Sun09/29/20 at 0900, For 7 days [facility] Medication administered onsite 1,000 mg 09/29/2020 [...] tablet by cali th Three times daily [facility] Levetiracetam 1000 MG Oral Tablet levETIRAcetam 1000 M G Oral Tablet (KEPPRA) levETIRAcetam 1000 MG Oral Tablet (KEPPRA) 09/29/2020 12:00:00 AM EDT 1000 mg Oral active Take 1 tablet by cali th Two Times Daily [facility] Chlorpromazine hydrochloride 100 MG Oral Tablet chlorproMAZINE HCl 100 MG Oral Tablet (THORAZINE) chlorproMAZINE HCl 100 MG Oral Tablet (THORAZINE) 05/2020 12:00:00 AM EDT 100 mg Oral active Take 1 tablet by mouth Two Times Daily [facility] 600 mg 09/29/2020 12:00:00 AM EDT [...] on Sun09/27/20 at 2100, For 30 doses [facility] Medication administered onsite chlorproMAZINE (THORAZINE) injection 100 mg [id number] 09/27/2020 01:00:00 PM EDT 100 mg Intramuscular completed 100 mg, Intramuscular, Once, On Sun09/27/20 at 1300, For 1 dose
May be given over objection
[facility] Medication administered onsite chlorproMAZINE (THORAZINE) injection 100 mg [id number] 09/25/2020 02:00:00 PM EDT 100 mg Intramuscular completed 100 mg, Intramuscular, Once, On 09/25/20 at 1400, For 1 dose [facility] Medication administered onsite diphenhydrAMINE (BENADRYL) injection 50 mg [id number] 09/25/2020 02:00:00 PM EDT 50 mg Intramuscular completed 50 mg, Intramuscular, Once, On 09/25/20 at 1400, For 1 dose [facility] Medication administered onsite olanzapine 5 MG/ML Injectable Solution OLANZapine (ZYP REXA) injection 10 mg OLANZapine (ZYPREXA) injection 10 mg 09/25/2020 09:15:00 AM EDT 10 mg Intramuscular completed 10 mg, Intr amuscular, Once, On 09/25/20 at 0915, For 1 dose
Reconstitute 10 mg vial with 2.1 mL SWFI; resulting solution is ~5 mg/mL; Use within 1 hour following reconstitution.
[facility] Medication administered onsite Chlorpromazine hydrochloride 100 MG Oral Tablet chlorproMAZINE (THORAZINE) tablet 100 mg chlorproMAZINE (THORAZINE) tablet 100 mg 09/23/2020 10 :00:00 PM EDT 100 mg Oral aborted 100 mg, Oral, Nightly, First dose (after last modification) on Sun09/23/20 at 2200, For 28 doses [facility] Medication administered onsite gabapentin 300 MG Oral Capsule gabapentin (NEURONTIN) capsule 600 mg gabapentin (NEURONTIN) capsule 600 mg 09/23/2020 03:00:00 PM EDT 600 mg Oral active 600 mg, Oral, Three Times D aily Standard, Indications: substance use anxiety, First dose (after last modification) on Sun09/23/20 at 1500, For 57 doses [facility] Medication administered onsite Chlorpromazine hydrochloride 50 MG Oral Tablet chlorproMAZINE (THORAZINE) tablet 50 mg chlorproMAZINE (THORAZINE) tablet 50 mg 09/21/2020 10:00:00 PM E DT 50 mg Oral aborted 50 mg, Ora l, Nightly, First dose on Sun09/21/20 at 2200, For 30 days [facility] Medication administered onsite Ibuprofen 400 MG Oral Tablet ibuprofen (MOTRIN) tablet 400 mg ibuprofen (MOTRIN) tablet 400 mg 09/21/2020 09:30:00 PM EDT 400 mg Oral comp leted 400 mg, Oral, Once, On Sun09/21/20 at 2130, For 1 dose
Take with food.
[facility] Medication administered onsite Chlorpromazine hydrochloride 25 MG Oral Tablet chlorproMAZINE (THORAZINE) tablet 25 mg chlorproMAZINE (THORAZINE) tablet 25 mg 09/21/2020 03:00:00 PM E DT 25 mg Oral aborted 25 mg, Ora l, 2 Times Daily, First dose (after last modification) on Sun09/21/20 at 1500, For 30 doses [facility] Medication administered onsite Citalopram 20 MG Oral Tablet citalopram (CELEXA) table t 10 mg citalopram (CELEXA) tablet 10 mg 09/19/2020 09:00:00 AM EDT 10 mg Oral active 10 mg, Oral, Daily Standard, First dose on Sun09/19/20 at 0900, For 30 days [facility] Medication administered onsite Chlorpromazine hydrochloride 25 MG Oral Tablet chlorproMAZINE (THORAZINE) tablet 25 mg chlorproMAZINE (THORAZINE) tablet 25 mg 09/15/2020 12:15:00 PM E DT 25 mg Oral aborted 25 mg, Ora l, Three Times Daily Standard, First dose on Sun09/15/20 at 1215, For 30 days [facility] Medication administered onsite Nicotine 2 MG Oral Lozenge nicotine (NICORETTE) lozeng e 2 mg nicotine (NICORETTE) lozenge 2 mg 09/15/2020 10:22:02 AM EDT 2 mg Mouth/Th roat active 2 mg, Mouth/Throat, Every 2 hours PRN, Smoking cessation, Starting on Sun09/15/20 at 1022, For 30 days
Should not be chewed or swallowed; allow to dissolve slowly (~20-30 minutes)
[facility] Medication administered onsite gabapentin 400 MG Oral Capsule gabapentin (NEURONTIN) capsule 400 mg gabapentin (NEURONTIN) capsule 400 mg 09/14/2020 05:00:00 PM EDT 400 mg Oral aborted 400 mg, Oral, Three Times D aily Standard, Indications: substance use anxiety, First dose (after last modification) on Sun09/14/20 at 1700, For 84 doses [facility] Medication administered onsite Acetaminophen 325 MG [...] mg from all sources in 24 hours.
[facility] Medication administered onsite 24 HR Nicotine 0.875 MG/HR Transdermal P atch nicotine (NICODERM CQ) 21 MG/24HR 1 patch nicotine (NICODERM CQ) 21 MG/24HR 1 patch 09/13/2020 09:00:00 AM EDT 1 {patch} Transdermal aborted 1 patch, Transdermal, Administer over 24 Hours, Daily Standard, First dose on Sun09/13/20 at 0900, For 30 days [facility] Medication administered onsite Bisacodyl 10 MG Rectal Suppository bisacodyl (DULCOLAX ) suppository 10 mg bisacodyl (DULCOLAX) suppository 10 mg 09/13/2020 08:49:03 AM EDT 10 mg Rectal active 10 mg, Rectal, Every 72 hours PRN, Constipation, Starting on Sun09/13/20 at 0849, For 30 days
Hold if patient has had BM within the past 2 days.
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 system Diagnosis 09/2020 11:35:00 AM EDT [facility] K219 Gastro-esophageal reflux disease without esophagitis Gastro-esophageal reflux disease without esophagitis Diagnosis 11/03/2020 11:35:00 AM ED T [facility] G8929 Other chronic pain Other chronic pain Diagnosis 09/2020 11:35:00 AM EDT [facility] R1084 Generalized abdominal pain Generalized abdominal pain Diagnosis 11/03/2020 11:35:00 AM EDT [facility] R197 Diarrhea, unspecified Diarrhea, unspecified Diagnosis 11/03/2020 11:35:00 AM EDT [facility] Z5320 Procedure and treatment not carried out because of patient's decision for unspecified reasons Procedure and treatment not carried out because of patient's decision for unspecified reasons Diagnosis 10/03/2020 06:06:00 PM EDT [facility] F209 Schizophrenia, unspecified Schizophrenia, unspecified Diagnosis 10/03/2020 06:06:00 PM EDT [facility] M39958 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 Diagnosis 10/03/2020 06:06:00 PM EDT [facility] R454 Irritability and anger Irritability and anger Diagnosi s 10/03/2020 06:06:00 PM EDT [facility] R85557 Personal history of nicotine dependence Personal history of nicotine dependence Diagnosis 09/09/2020 04:46:00 PM [facility] R451 Restlessness and agitation Restlessness and agitation Diagnosis 09/09/2020 04:46:00 PM [facility] F90.0 Attention-deficit hyperactivity disorder , predominantly inattentive type ATTN-DEFCT HYPERACTIVITY DISORDER, PREDOM INATTENT Diagnosis 10/2020 11:00:00 AM [facility] F43.12 Post-traumatic stress disorder, chronic POST-TRAUMATIC STRESS DISORDER, CHRONIC Diagnosis 09/03/2020 11:00:00 AM [facility] F15.10 Other stimulant abuse, uncomplicated OTH ER STIMULANT ABUSE, UNCOMPLICATED Diagnosis 09/03/2020 11:00:00 AM [facility] F20.9 Schizophrenia, unspecified SCHIZOPHRENIA, UNSPECIFIED Diagnosis 09/03/2020 11:00:00 AM [facility] R45.851 Suicidal ideations Suicidal ideations Diagnosis 12/2020 07:35:00 PM [facility] psychotic, schizoaffective disorder bipo lar type psychotic, schizoaffective disorder bipolar type Diagnosis 08/06/2020 07:35:00 PM T [facility] F50.81 BINGE EATING DISORDER BINGE EATING DISORDER Diagnosis 07/15/2020 08:03:00 AM [facility] 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, uncomplicated H allucinogen dependence, uncomplicated Diagnosis 06/28/2020 07:41:00 PM [facility] F1520 Other stimulant dependence, uncomplicate d Other stimulant dependence, uncomplicated Diagnosis 06/28/2020 07:41:00 PM [facility] H06175 Episodic tension-type headache, intracta ble Episodic tension-type headache, intractable Diagnosis 06/28/2020 07[facility] R519 Headache, unspecified Headache, unspecified Diagnosis 06/28/2020 07:41:00 PM [facility] X09622 Nicotine dependence, unspecified, uncomp licated Nicotine dependence, unspecified, uncomplicated Diagnosis 06[facility]16[facility] Unspecified abdominal pain Unspecified abdominal pain Diagnosis 06/16/2020 04:22:00 PM [facility] F15.11 OTHER STIMULANT ABUSE, IN REMISSION OTHER STIMUL ANT ABUSE, IN REMISSION Diagnosis 05/26/2020 05:00:00 PM [facility] F11.10 Opioid abuse, uncomplicated OPIOID ABUSE, UNCOMPLICATE D Diagnosis 05/26/2020 05:00:00 PM [facility] T14.8XXA OTHER INJURY OF UNSPECIFIED BODY REGION, INITIAL E OTHER INJURY OF UNSPECIFIED BODY REGION, INITIAL E Diagnosis 03/30/2020 10:18:00 AM [facility] K13.79 Other lesions of oral mucosa OTHER LESIONS OF ORAL MUC SINA Diagnosis 03/30/2020 10:18:00 AM [facility] A04.72 ENTEROCOLITIS D/T CLOSTRIDIUM DIFFICILE, NOT SPCF RECUR ENTEROCOLITIS D/T CLOSTRIDIUM DIFFICILE, NOT SPCF RECUR Diagnosis 10:18:00 AM [facility] Z53.29 Procedure and treatment not carried out because of patient's decision for other reasons PROC/TRTMT NOT CRD OUT BEC PT DECISION FOR OTH REASONS Diagn osis 03/11/2020 12:00:00 PM [facility] Z13.29 Encounter for screening for other suspec keven endocrine disorder ENCOUNTER FOR SCREENING FOR OTH SUSPECTE Diagnosis 03/01/2020 04:49:00 PM [facility] Z82.61 Family history of arthritis FAMILY HISTORY OF ARTHRITI S Diagnosis 03/01/2020 04:49:00 PM [facility] Z82.69 Family history of other dise ases of the musculoskeletal system and connective tissue FAMILY HISTORY OF DISEASES OF THE MS SYS Diagnosis 03/01/2020 04:49:00 PM [facility] Z13.220 Encounter for screening for lipoid disor ders ENCOUNTER FOR SCREENING FOR LIPOID DISORDERS Diagnosis 03/01/2020 04[facility]49:[facility] R[facility]9 Fever, unspecified FEVER, UNSPECIFIED Diagnosis 05/2020 03:45:00 PM [facility] 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, in r emission OTHER PSYCHOACTIVE SUBSTANCE ABUSE, IN REMISSION Diagnosis 03/01/2020 03:45:00 PM [facility] G56.03 CARPAL TUNNEL SYNDROME, BILATERAL UPPER LIMBS CARPAL TUNNEL SYNDROME, BILATERAL UPPER LIMBS Diagnosis 03/01/2020 03:45:00 PM [facility] K21.9 Gastro-esophageal reflux disease without esophagitis GASTRO-ESOPHAGEAL REFLUX DISEASE WITHOUT ESOPHAGITIS Diagnosis 02/18/2020 10:00:00 AM [facility] F12.10 Cannabis abuse, uncomplicated CANNABIS ABUSE, [...] SUBSTANCE DEPENDENCE, UNCOMPLIC Diagnosis 12/05/2019 10:08:00 AM [facility] R45.851 Suicidal ideations SUICIDAL IDEATIONS Diagnosis 10/2019 10:08:00 AM [facility] G40.909 Epilepsy, unspecified, not intractable, without status epilepticus EPILEPSY, UNSP, NOT INTRACTABLE, WITHOUT STATUS EP Diagnosis 10/2019 10:08:00 AM [facility] F32.2 Major depressive disorder, s rito episode, severe without psychotic features MAJOR DEPRESSV DISORD, SINGLE EPSD, SEV Diagnosis 12/05/2019 10:08:00 AM [facility] F25.1 Schizoaffective disorder, depressive typ e SCHIZOAFFECTIVE DISORDER, DEPRESSIVE TYPE Diagnosis 12/05/2019 10:08:00 AM [facility] Y92.[address] or not applicable UNSPECIFIED PLACE OR NOT APPLICABLE Diagnosis 12/04/2019 11:06:00 PM [facility] X58.XXXA Exposure to other specified factors, ini tial encounter EXPOSURE TO OTHER SPECIFIED FACTORS, INITIAL ENCOU Diagnosis 12/04/2019 11:06:00 P M [facility] T42.6X2A Poisoning by other antiepile ptic and sedative-hypnotic drugs, intentional self-harm, initial encounter POISN BY OTH ANTIEPLPTC AND SED-HYPNTC DRUGS, SLF- Diagnosis 12/04/2019 11:06:00 PM EDT [facility] T40.902A Poisoning by unspecified psy chodysleptics [hallucinogens], intentional self-harm, initial encounter POISONING BY UNSP PSYCHODYSLEPTICS, SELF-HARM, INI Diagnosis 12/04/2019 11:06:00 PM [facility] K21.9 Gastro-esophageal reflux disease without esophagitis GASTRO-ESOPHAGEAL REFLUX DISEASE WITHOUT ESOPHAGIT Diagnosis 12/04/2019 11:06:00 PM [facility] F90.9 Attention-deficit hyperactivity disorder , unspecified type ATTENTION- DEFICIT HYPERACTIVITY DISORDER, UNSPECIF Diagnosis 12/04/2019 11:06:00 PM [facility] F43.10 Post-traumatic stress disorder, unspecif ied POST-TRAUMATIC STRESS DISORDER, UNSPECIFIED Diagnosis 12/04/2019 11:06:00 PM [facility] F43.23 Adjustment disorder with mixed anxiety a nd depressed mood ADJUSTMENT DISORDER WITH MIXED ANXIETY AND DEPRESS Diagnosis 12/04/2019 11:06:00 PM [facility] T42.4X2A Poisoning by benzodiazepines, intentiona l self-harm, initial encounter POISONING BY BENZODIAZEPINES, INTENTIONAL SELF-HARM, INIT Diagnosis 12/04/2019 11:06:00 PM [facility] Y93.89 Activity, other specified ACTIVITY, OTHER SPECIFIED Di agnosis 12/04/2019 04:21:00 PM [facility] Y92.[address] the place of o ccurrence of the external cause OT PLACES THE PLACE OF OCCURRENCE OF THE EXTER Diagnosis 09/2019 04:21:00 PM [facility] Z79.899 Other penitentiary (current) drug therapy O THER LONGTERM (CURRENT) DRUG THERAPY Diagnosis 12/04/2019 04:21:[address] [facility] Z20.828 Contact with and (suspected) exposure to other viral communicable diseases CONTACT W AND EXPOSURE TO OTH VIRAL COMMUNICABLE D Diagnosis 12/04/2019 04:21:00 PM [facility] F17.210 Nicotine dependence, cigarettes, uncompl icated NICOTINE DEPENDENCE, CIGARETTES, UNCOMPLICATED Diagnosis 12/04/2019 04:21:[address] [facility] T50.992A Poisoning by other drugs, me dicaments and biological substances, intentional self-harm, initial encounter POISONING BY OTH DRUG/MEDS/BIOL SUBST, SELF-HARM, Diagnosis 12/04/2019 04:21:00 PM EDT [facility] l R45.851 Suicidal ideations SUICIDAL IDEATIONS Diagnosis 09/2019 04:21:00 PM EDT [facility] [id number] Seizure disorder Seizure Disorder Problem 11/12/2020 12 :00:00 AM EDT [facility]) [id number] Schizophrenia Schizophrenia Problem 11/12/2020 12:00:00 AM EDT [facility]) [id number] Hyperthyroidism Hyperthyroidism Problem 11/12/2020 12:0 0:00 AM EDT [facility]) F20.9 [id number] Schizophrenia, unspecified type Problem 09/24/2020 12:00:00 AM EDT eCW1 ([facility]) F19.10 Polysubstance abuse Polysubstance abuse Problem 0 03/11/2020 12:00:00 AM EST eCW1 ([facility]) K14.6 [id number] Tongue sore Problem 03/01/2020 12:00:[address] eCW1 ([facility]) F19.11 [id number] History of drug abuse Problem 03/01/2020 12: 00:00 AM EST eCW1 ([facility]) F19.10 [id number] Substance abuse Problem 12/24/2019 12:00:00 AM EDT eCW1 ([facility]) [id number] SNOMED CT Concept SNOMED CT Concept Problem 12/10 06:41:41 PM EDT [place] ([facility]) [id number] Fitting procedure Fitting Procedure Problem 12/10 06:41:41 PM EDT [place] ([facility]) 70149077 Depressive disorder Depressive Disorder Problem 1 06:41:41 PM EDT [place] ([facility]) Surgeries/Procedures Procedure Description Date Indications Data Source(s) CVR Javascript Web Developer.Svc. Other 11/05/2020 12:00:00 AM EDT - 2020 12:00:00 AM EDT [facility] ([facility]) CVR Javascript Web Developer.Svc. Contraceptive 11/05/2020 12 :00:00 AM EDT - 11/05/2020 12:00:00 AM EDT [facility] ([facility]) CVR Med.Svc. Height/Weight 11/05/2020 12 :00:00 AM EDT - 11/05/2020 12:00:00 AM EDT [facility] ([facility]) CVR Blood Pressure 11/05/2020 12:00:00 AM EDT - 2020 12:00:00 AM EDT [facility] ([facility]) OFFICE VISIT, EST 11/05/2020 12:00:00 AM EDT - 021 12:00:00 AM EDT [facility] ([facility]) EKG 12-LEAD - CMAXX REPORT <td>EKG 12-LEAD - CMAXX REPORT</td><td></td><td>09/22/2020 8:46 PM EDT</td><td></td><td></td> 09/22/2020 08:46:20 PM [facility] EKG 12-LEAD - CMAXX REPORT <td>EKG 12-LEAD - CMAXX REPORT</td><td></td><td>09/22/2020 8:46 PM EDT</td><td></td><td></td> 09/22/2020 08:46:20 PM [facility] EKG 12-LEAD <td>EKG 12-LEAD</td><td>Rout ine</td><td>09/22/2020 8:46 PM EDT</td><td></td><td> </td> 09/22/2020 08:46:20 PM [facility] URNLS DIP STICK/TABLET REAGENT AUTO MICROSCOPY <td>URI NALYSIS WITH MICROSCOPIC</td><td>Routine</td><td>09/18/2020 3:48 PM EDT</td><td></td><td> </td> 09/18/2020 03:48:00 PM [facility] 25 HYDROXY INCLUDES FRACTIONS IF PERFORMED <td>VITAMIN D 25 HYDROXY, TOTAL</td><td>Routine</td><td>09/17/2020 7:10 AM EDT</td><td></td><td> </td> 09/17/2020 07:10:00 AM [facility] BLOOD COUNT COMPLETE AUTO&AUTO DIFRNTL WBC COUNT <td>C BC AND DIFFERENTIAL</td><td>Routine</td><td>09/17/2020 7:10 AM EDT</td><td></td><td> </td> 09/17/2020 07:10:00 AM [facility] THYROID STIMULATING HORMONE TSH <td>TSH</td><td>Routin e</td><td>09/17/2020 7:10 AM EDT</td><td></td><td> </td> 09/17/2020 07:10:00 AM [facility] HEMOGLOBIN GLYCOSYLATED A1C <td>HEMOGLOBIN A1C</td><td>Routine</td><td>09/17/2020 7:10 AM EDT</td><td></td><td> </td> 09/17/2020 07:10:00 AM [facility] LIPID PANEL <td>LIPID PANEL</td><td>Rout ine</td><td>09/17/2020 7:10 AM EDT</td><td></td><td> </td> 09/17/2020 07:10:00 AM [facility] COMPREHENSIVE METABOLIC PANEL <td>COMPREHENSIVE METABO LIC PANEL</td><td>Routine</td><td>09/17/2020 7:10 AM EDT</td><td></td><td> </td> 09/17/2020 07:10:00 AM [facility] IADNA NEISSERIA GONORRHOEAE AMPLIFIED PROBE TQ <td>AMP LIFIED GC AND CHLAMYDIA</td><td>Routine</td><td>09/12/2020 11:57 AM EDT</td><td></td><td> </td> 09/12/2020 11:57:00 AM [facility] URNLS DIP STICK/TABLET REAGENT AUTO MICROSCOPY <td>URI NALYSIS WITH MICROSCOPIC</td><td>Routine</td><td>09/12/2020 11:57 AM EDT</td><td></td><td> </td> 09/12/2020 11:57:00 AM [facility] CULTURE BCT ISOL&PRSMPTV ID ISOLATE EA URINE <td>URINE CULTURE</td><td>Routine</td><td>09/12/2020 11:57 AM EDT</td><td></td><td> </td> 09/12/2020 11:57:00 AM [facility] URNLS DIP STICK/TABLET REAGENT AUTO MICROSCOPY <td>URI NALYSIS WITH MICROSCOPIC</td><td>Routine</td><td>08/15/2020 6:54 PM EDT</td><td></td><td> </td> 08/15/2020 06:54:00 PM [facility] Psychological Tests, Neurobehavioral and Cognitive Status 12/06/2019 12:00:00 AM [facility] Introduction of Electrolytic and Water B alance Substance into Peripheral Vein, Percutaneous Approach 12/04/2019 12:00:00 AM [facility] Results ID Date Data Source [id number] 01/11/2021 11:07:00 PM EST [facility] 1 OrderSheet [facility] Emergency Department [address] [place] [address] Phone #: ext- [phone] 01/11/2021 23:07 Patient: [...] as Nora Moreau RN; Nora RNDefined by [facility]) Per protocol;(01/12/2021) Michael Ramsey 2 OrderSheet [facility] Emergency Department [address] [place] [address] Phone #: ext- [phone] 01/11/2021 23:07 Patient: [...] consideration given -- 11:31 01/12/2021 3 OrderSheet [facility] Emergency Department [address] [place] [address] Phone #: ext- [phone] 01/11/2021 23:07 Patient: [...] rce(s) Supporting Document(s) ID Date Data Source [id number] 01/11/2021 11:07:00 PM EST [facility] 1 Medication Reconciliation Report [facility] Emergency Department [address] [place] [address] Phone #: ext- [phone] 01/11/2021 23:07 Patient: [...] to the patient:None. 2 Medication Reconciliation Report [facility] Emergency Department [address] [place] [address] Phone #: [phone] 01/11/2021 23:07 Patient: BRUNA LEE Sex: F : 1985 Age: 35y Name Value Range Interpretation Code Description Data [place] rce(s) Supporting Document(s) ID Date Data Source [id number] 01/11/2021 11:07:00 PM [facility] 1 Medication Administration Record [facility] Emergency Department [address] [place] [address] Phone #: ext- [phone] 01/11/2021 23:07 Patient: [...] rce(s) Supporting Document(s) ID Date Data Source [id number] 01/11/2021 11:07:00 PM EST [facility] 1 General Instructions [facility] Emergency Department [address] [place] [address] Phone #: ext- [phone] 01/11/2021 23:07 Patient: BRUNA LEE Sex: F : 1985 Age: 35y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(Electronically signed by Michael Ramsey 01/13/2021 08:36)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 01/12/2021 18:45) Name Value Range Interpretation Code Description Data [place] rce(s) Supporting Document(s) ID Date Data Source [id number] 01/11/2021 11:07:00 PM EST [facility] 1 Clinical Report - Nurses [facility] Emergency Department [address] [place] [address] Phone #: ext- [phone] 01/11/2021 23:07 Patient: [...] Disorder.Anxiety Reaction.Depression. 2 Clinical Report - Nurses [facility] Emergency Department [address] [place] [address] Phone #: ext- [phone] 01/11/2021 23:07 Patient: [...] notified. --23:01/11/21 3 Clinical Report - Nurses [facility] Emergency Department [address] [place] [address] Phone #: ext- [phone] 01/11/2021 23:07 Patient: [...] placed and Chart faxed to [facility] at [facility]. [facility] and NURYS currently onPsych diversion.). --04:14 01/12/21 [...] Maldonado R.N. 4 Clinical Report - Nurses [facility] Emergency Department [address] [place] [address] Phone #: ext- [phone] 01/11/2021 23:07 Patient: BRUNA LEE Sex: F [...] F. --09:17 01/12/21 [employer] Tech, Barbara, ER [id number] patient is sleeping. ( PT sleeping in [...] RR: 14. O2 saturation: 98%. --12:02 01/12/21 [employer] Barbara Hall ERTech1. 5 Clinical Report - Nurses [facility] Emergency Department [address] [place] [address] Phone #: ext- [phone] 01/11/2021 23:07 Patient: BRUNA LEE Sex: F : 1985 Age: 35yDISPOSITION / DISCHARGE Report was given to a nurse via a phone call. Report included patient's care, treatment, allergies, condition, vital signs, labs, medications and IV's. All questions were answered. Report was acknowledged. (Krish BECKER at [facility] psych unit). --12:20 01/12/21 Jaelyn Pastrana R.N. Departure time: 12:46 01/12/2021. Transferred to [facility]. Transported via ambulance by EMS. Patient's [...] rce(s) Supporting Document(s) ID Date Data Source [id number] 01/11/2021 11:07:00 PM EST [facility] 1 Clinical Report - Physicians/Mid Levels [facility] [facility] Emergency Department [address] [place] [address] Phone #: ext- [phone] 01/11/2021 23:07 Patient: [...] times and had 2 beers 1 hour [employer] and she started having burning sensation on [...] day. 2 Clinical Report - Physicians/Mid Levels [facility] Emergency Department [address] [place] [address] Phone #: ext- [phone] 01/11/2021 23:07 Patient: [...] results 3 Clinical Report - Physicians/Mid Levels [facility] Emergency Department [address] [place] [address] Phone #: ext- [phone] 01/11/2021 23:07 [id number] Sex[facility] F : 1985 Age: 35y Test Result Flag Units (Reference) HCG QUANT <0.5 mIU/mL Interpretation: Less than 5 mU/mL: Negative6-10 mU/mL: Borderline (suggest repeat in 48 hours) >10: PositiveApprox HCG range (mU/mL) Weeks post LMP 5.4-708 mU/mL 3-4 Upkgy532- 81642 mU/mL 5-6 Weeks 4059-060359 mU/mL 7-8 Aywut60109-270921 mU/mL 9-10 Weeks 17957-22551 mU/mL 12-14 Okezy14298-23923 mU/mL 15-16 Weeks 8240-84141 mU/mL 17-18 WeeksCMP: (JENN: 01/12/2021 00:25) ( [...] Male GFR Interprentation 20-49 yrs >60 mL/min Xuokux11-43 yrs >56 mL/min Normal 60- 69 yrs >49 mL/min Normal 70-79yrs>42 mL/min Normal 80 and above >35 mL/min Normal Female GFRInterpretation 20-39 yrs >60 mL/min Normal 40-49 yrs >58 mL/minNormal 50-59 yrs >51 mL/min Normal 60-69 yrs >45 mL/min Eeyqnd25-92 yrs >39 mL/min Normal 80 and above [...] 80.0) 4 Clinical Report - Physicians/Mid Levels [facility] Emergency Department [address] [place] [address] Phone #: ext- [phone] 01/11/2021 23:07 Patient: [...] REQUEST.. 5 Clinical Report - Physicians/Mid Levels [facility] Emergency Department [address] [place] [address] Phone #: ext- [phone] 01/11/2021 23:07 Patient: [...] times and had 2 beers 1 hour [employer] and she started having burning sensation on her tongue and throat . denies nausea or vomiting. she 6 Clinical Report - Physicians/Mid [facility] Emergency Department [address] [place] [address] Phone #: ext- [phone] 01/11/2021 23:07 Patient: [...] Drug use: 7 Clinical Report - Physicians/Mid [facility] Emergency Department [address] [place] [address] Phone #: ext- [phone] 01/11/2021 23:07 Patient: [...] EKGLaboratory Tests: ETOH: (JENN: 01/12/2021 00:25) ( [facility] 01/12/2021 01:14) Final results Test Result Flag [...] Weeks post LMP 5.4-708 mU/mL 3-4 Weeks 217-05716 mU/mL 5-6 Weeks 4059-661373 mU/mL 7-8 Weeks 71645-937341 mU/mL 9-10 Weeks 15321-23218 mU/mL 12-14 Weeks 26695-80075 mU/mL 15-16 Weeks 8240-42001 mU/mL 17-18 Weeks CMP: (JENN: 01/12/2021 00:25) ( [facility] 01/12/2021 01:14) Final results Test Result Flag Units (Reference) COMPREHENSIVE METABOLIC PANEL COMPREHENSIVE METABOLIC PANEL SODIUM 138 mEq/L (134 - 153) POTASSIUM 4.5 mEq/L (3.6 - 5.0) 8 Clinical Report - Physicians/Mid Levels [facility] Emergency Department [address] [place] [address] Phone #: ext- [phone] 01/11/2021 23:07 Patient: [...] Male GFR Interprentation 20-49 yrs >60 mL/min Zbczhb26-41 yrs >56 mL/min Normal 60-69 yrs >49 mL/min Normal 70-79yrs>42 mL/min Normal 80 and above >35 mL/min Normal Female GFRInterpretation 20-39 yrs >60 mL/min Normal 40-49 yrs >58 mL/minNormal 50-59 yrs >51 mL/min Normal 60-69 yrs >45 mL/min Sqcgpc04- 79 yrs >39 mL/min Normal 80 and [...] results 9 Clinical Report - Physicians/Mid Levels [facility] Emergency Department [address] [place] [address] Phone #: ext- [phone] 01/11/2021 23:07 Patient: BRUNA LEE Sex: F [...] Haldol 10 Clinical Report - Physicians/Mid Levels [facility] Emergency Department [address] [place] [address] Phone #: ext- [phone] 01/11/2021 23:07 Patient: BRUNA LEE Sex: F : 1985 Age: 35y 03:53 01/12/21. Patient cleared medically. awaiting psych transfer 07:30 01/12/21. care assumed at shift change; H, workup all reviewed; waiting for [facility] psych to call back since [facility] is on psych diversion; pt sleeping comfo rtably 11:33 01/12/21. case discussed w Dr. Martinez, psychiatrist, and Avery Stewart, FOURDRINIER OPERATOR, at [facility] who asked me to reassess pt [...] police called, and pt brought down to [facility] by force for her safety and safety [...] and alternatives to transfer explained. Transferred to [facility]. Summary of care (CCDA) provided to transport team and transfer facility. CPEP. 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 01/12/2021 18:45) Name Value Range Interpretation Code Description Data [place] rce(s) Supporting Document(s) ID Date Data Source [id number] 01/13/2021 08:04:[address] [facility] INFORMATIONPatient MRN Name Date of Age Gend*PT [id number] Bruna Lee 1985 35 years F CPET Location Admission Date/Time Visit ID Attending [id number] 01/12/21 1636 --- Petr Hood MD([id number]) EPI ID CSN Admitting Provider [id number] ---CPEP Discharge NotePatient Name: Bruna ComePatient at CPEP: 01/12/21 1421Date and Time of Assessment: 01/13/2021, 8:02 [facility] Complaint:Chief ComplaintPatient presents with Psychiatric Evaluation Pt transfer from [facility] after meth use and being paranoid. Pt extremely medaffected upon arrival and unable to participate in triage (recieved 50mgbenedryl, 4mg atvian, and 10mg haldol at 1139 per EMS). SILVA SI/HI/AVHAge: 35 yearsRace: White or CaucasianGender: femaleChart Reviewed and Patient ExaminedDischarge to: HomeHistory of Present IllnessPatient InfoHistory provided by: (Patton)History limited by: condition of the patientLanguage car salesman used?: NoHPI: Mental Health ProblemPresenting Symptoms: anxiety, [...] PATTERN OF ABSTINANCE Comments methamphetamine unknown per [facility] documentation alcohol occasional per [facility] documentationHistory reviewed. No pertinent family history.Social HistoryTobacco [...] IntactRecent Memory: IntactInsight: FairJudgment: FairOrientation: Appropriately Oriented [id number] Toward Examiner: CooperativeAssociations: No loosening evidentFund of [...] abuse treatment and MCOProgress Towards DischargeBilling Code: [id number] signed Kim Hood MD01/13/21 0804 Name Value Range Interpretation Code Description Data [place] rce(s) Supporting Document(s) ID Date Data Source [id number] 01/12/2021 04:47:[address] [facility] NT INFORMATIONPatient MRN Name Date of Age Gend*PT [id number] Bruna Lee 1985 35 years F CPEPPT Location Admission Date/Time Visit ID Attending ProviderNONE 01/12/21 1636 --- Apurva Patton MD([id number]) EPI ID CSN Admitting Provider [id number] ---CPEP PSYCHIATRIC ASSESSMENTPatient Name: Bruna Welch at CPEP: 01/12/21 1421Psychiatrist First Contact: Yes (01/12/21 1616 : Apurva Patton MD)Chief ComplaintChief ComplaintPatient presents with Psychiatric Evaluation Pt transfer from [place] after meth use and being paranoid. Pt extremely medaffected upon arrival and unable to participate in triage (recieved 50mgbenedryl, 4mg atvian, and 10mg haldol at 1139 per EMS). SILVA SI/HI/AVHCurrent StressorsHistory of Present Qzneulf42-yhww-dkd white female admitted due to escalating behavioral [...] policeHistory limited by: condition of the patientLanguage car salesman used?: NoHPI: Mental Health ProblemPresenting Symptoms: anxiety, [...] PATTERN OF ABSTINANCE Comments methamphetamine unknown per [facility] documentation alcohol occasional per [facility] documentationFamily HistoryHistory reviewed. No pertinent family history.Social HistorySocial HistoryTobacco Use Smoking status: Current Every Day Smoker Smokeless tobacco: Never UsedSubstance Use Topics Alcohol use: Not on file Drug use: Not on fileSocial HistorySubstance and Sexual ActivitySexual Activity Not on fileRelationships and Living SituationRelationship StatusRelationship Status: (silva pt med affected)Sexual PreferenceSexual Preference: None SpecifiedParental StatusParental Status: UnknownResidence/HomelessResides in : Homeless (per [facility])Was the patient homeless at any time within [...] No changes [] No side effectsBilling Code: [id number] signed byApurva Patton MD01/12/21 164 Name Value Range Interpretation Code Description Data [place] rce(s) Supporting Document(s) ID Date Data Source [id number] 01/12/2021 07:45:00 AM EST [facility] Name Value Range Interpretation Code Description Data [place] rce(s) Supporting Document(s) COVID19 Case rprt NOT DETECTED [facility] This lab was ordered by [facility] and reported by [facility]. ID Date Data Source [id number] 01/12/2021 09:44:00 AM [facility] NOT DETECTEDNOT DETECTED{ PROC EDURAL CONTROL VALID [...] rce(s) Supporting Document(s) ID Date Data Source [id number] 01/12/2021 07:46:00 AM [facility] Name Value Range Interpretation Code Description Data [place] rce(s) Supporting Document(s) SALICYLATE <0.3 mg/dL 2.0 - 20.0 L [facility] ID Date Data Source [id number] 01/12/2021 07:45:00 AM [facility] Name Value Range Interpretation Code Description Data [place] rce(s) Supporting Document(s) Acetaminophen [Presence] in Urine <5.0 UG/ML 0.0 - 30.0 [facility] ID Date Data Source [id number] 01/12/2021 01:14:00 AM [facility] Name Value Range Interpretation Code Description Data [place] rce(s) Supporting Document(s) Ethanol [Moles/volume] in Blood <10.0 MG/DL [facility] ALCOHOL % 0.00 % 0.00 - 0.01 [facility] ital *FOR MEDICAL PURPOSES ONLY * ID Date Data Source [id number] 01/12/2021 01:14:00 AM EST [facility] Name Value Range Interpretation Code Description Data [place] rce(s) Supporting Document(s) COMPREHENSIVE METABOLIC PANEL [facility] COMPREHENSIVE METABOLIC PANEL Sodium [Moles/volume] in Serum or Plasma 138 mEq/L 134 - 153 [facility] Potassium [Moles/volume] in Serum or Plasma 4.5 mEq/L 3.6 - 5.0 [facility] Chloride [Moles/volume] in Serum or Plasma 100 mEq/L 98 - 107 [facility] Carbon dioxide, total [Moles/volume] in Serum or Plasma 26 MEQ/L 22 - 30 [facility] Glucose [Mass/volume] in Serum or Plasma 133 MG/DL 70 - 99 H [facility] BUN 11 MG/DL 7 - 21 [facility] al Creatinine [Mass/volume] in Serum or Plasma 0.6 MG/DL 0.7 - 1.5 L [facility] BUN/CREAT 18 8 - 27 [facility] al Protein [Mass/volume] in Serum or Plasma 7.6 G/DL 6.3 - 8.2 [facility] Albumin [Mass/volume] in Serum or Plasma 4.9 G/DL 3.9 - 5.0 [facility] Globulin [Mass/volume] in Serum by calculation 2.7 GM/DL 2.4 - 3.2 [facility] A/G RATIO 1.8 0.8 - 2.0 [facility] Calcium [Mass/volume] in Serum or Plasma 10.1 MG/DL 8.4 - 10.2 [facility] Bilirubin.total [Mass/volume] in Serum or Plasma <0.7 MG/DL 0.2 - 1.3 [facility] Alkaline phosphatase [Enzymatic activity/volume] in Serum or Plasma 79 U/L 38 - 126 [facility] Aspartate aminotransferase [Enzymatic activity/volume] in Serum or Plasma 59 U/L 5 - 40 H [facility] Alanine aminotransferase [Enzymatic activity/volume] in Seru m or Plasma 32 U/L 7 - 56 [facility] Anion gap 3 in Serum or Plasma 12.0 mmol/L 8.0 - 16.0 [facility] AGE 35 yrs [facility] al NON-AA [...] >32 mL/min Normal ID Date Data Source [id number] 01/12/2021 01:04:00 AM EST [facility] Name Value Range Interpretation Code Description Data [place] rce(s) Supporting Document(s) Choriogonadotropin.intact [Units/volume] in Serum or Plasma <0.5 mIU/ mL [facility] Interpr etation: Less than 5 mU/mL: Negative 6-10 mU/mL: Borderline (suggest repeat in 48 hours) >10: Positive Approx HCG range (mU/mL) Weeks post LMP 5.4-708 mU/mL 3-4 Weeks 217-76386 mU/mL 5-6 Weeks 4059-022503 mU/mL 7-8 Weeks 96180-677644 mU/mL 9-10 Weeks 38767-84444 mU/mL 12-14 Weeks 63433-18430 mU/mL 15-16 Weeks 8240- 64313 mU/mL 17-18 Weeks ID Date Data Source [id number] 01/12/2021 12:43:00 AM EST [facility] Name Value Range Interpretation Code Description Data [place] rce(s) Supporting Document(s) CBC W/AUTOMATED DIFF [facility] COMPLETE BLOOD COUNT Leukocytes [#/volume] in Blood by Automated count 10.7 10^3/uL 4.2 - 11.0 [facility] Erythrocytes [#/volume] in Blood by Automated count 4.03 10^6/uL 4. 20 - 5.40 L [facility] Hemoglobin [Mass/volume] in Blood 12.4 g/dL 12.0 - 16.0 [facility] Hematocrit [Volume Fraction] of Blood by Automated count 36.6 % 3 7.0 - 47.0 L [facility] Erythrocyte mean corpuscular volume [Entitic volume] by Auto mated count 90.8 fL 81.0 - 101 [facility] Erythrocyte mean corpuscular hemoglobin [Entitic mass] by Automated count 30.8 pg 27.0 - 34.0 [facility] Erythrocyte mean corpuscular hemoglobin concentration [Mass/volume] by Automated count 33.9 g/dL 31.0 - 36.0 [facility] Erythrocyte distribution width [Ratio] by Automated count 13.2 % 11.5 - 14.5 [facility] Platelets [#/volume] in Blood by Automated count 361 10^3/uL 150 - 45 0 [facility] Platelet mean volume [Entitic volume] in Blood by Automated count 9.5 fL 7.4 - 10.4 [facility] Neutrophils/100 leukocytes in Blood by Automated count 70.5 % 37. 0 - 80.0 [facility] Lymphocytes/100 leukocytes in Blood by Manual count 20.2 % 25.0 - 40.0 L [facility] Monocytes/100 leukocytes in Blood by Automated count 7.8 % 3.0 - 8.0 [facility] Eosinophils/100 leukocytes in Blood by Automated count 0.3 % 0.0 - 7.0 [facility] Basophils/100 leukocytes in Blood by Automated count 0.5 % 0.0 - 2.5 [facility] %IG 0.7 % 0.0 - 0.0 [facility] %NRBC 0.0 % 0.0 - 0.0 [facility] al Neutrophils [#/volume] in Blood by Automated count 7.53 10^3/uL 2.00 - 6.90 H [facility] Lymphocytes [#/volume] in Blood by Automated count 2.16 10^3/uL 0.60 - 3.40 [facility] Monocytes [#/volume] in Blood by Automated count 0.83 10^3/uL 0.00 - 0.90 [facility] Eosinophils [#/volume] in Blood by Automated count 0.03 10^3/uL 0.00 - 0.70 [facility] Basophils [#/volume] in Blood by Automated count 0.05 10^3/uL 0.00 - 0.20 [facility] #IG 0.07 10^3/uL 0.00 - 0.10 [facility] #NRBC 0.00 10^3/uL 0.00 - 0.00 [facility] ospital MANUAL DIFF NOT INDICATED [facility] RBC MORPH NOT INDICATED [facility] sp[facility] ID Date Data Source [id number] 01/12/2021 01:29:00 AM EST [facility] Name Value Range Interpretation Code Description Data [place] rce(s) Supporting Document(s) DRUG SCREEN URINE [facility] URINE DRUG SCREEN Amphetamine [Presence] in Urine by Screen method PRESUMP POS ZAYNAB L: NEGATIVE [facility] BARBITURATES NEGATIVE NORMAL: NEGATIVE [facility] BENZO NEGATIVE NORMAL: NEGATIVE [facility] COCAINE NEGATIVE NORMAL: NEGATIVE [facility] Tetrahydrocannabinol [Presence] in Urine NEGATIVE NORMAL: NEGATIVE [facility] OPIATES NEGATIVE NORMAL: NEGATIVE [facility] Phencyclidine [Presence] in Urine by Screen method NEGATIVE NOR MAL: NEGATIVE [facility] \\BLDo\\URINE DRUG SCR EEN INTERPRETATION\\BLDx\\ THE CUTOFFF LEVELS FOR DETECTION ARE FOLLOWS: AMPHETAMINES 1000 ng/ml BARBITUARATES 200 ng/ml BENZODIAZEPINES 100 ng/ml THC 50 ng/ml PHENCYCLIDINE 25 ng/ml OPIATES 300 ng/ml COCAINE 300 ng/ml ALL POSITIVES ARE CONSIDERED PRESUMPTIVE POSITIVE CONFIRMATION WILL BE PERFORMED AT PHYSICIAN REQUEST. ID Date Data Source [id number] 01/12/2021 01:21:00 AM EST [facility] Name Value Range Interpretation Code Description Data [place] rce(s) Supporting Document(s) UA REFLEX TO UA CULTURE [facility] URINALYSIS SOURCE R [facility] al COLOR Lt Yellow NORMAL: Yellow [facility] ospital CLARITY clear NORMAL: Clear [facility] Specific gravity of Urine by Test strip 1.005 1.001 - 1.030 [facility] pH 7 5 - 9 [facility] Glucose [Mass/volume] in Urine by Test strip NORM NORMAL: Negat merari [facility] Bilirubin.total [Presence] in Urine by Test strip NEG NORMAL: Negative [facility] Ketones [Presence] in Urine by Test strip NEG NORMAL: Negative [facility] Protein [Mass/volume] in Urine by Test strip NEG NORMAL: Negat merari [facility] Nitrite [Presence] in Urine by Test strip NEG NORMAL: Negative [facility] BLOOD NEG NORMAL: Negative [facility] Leukocyte esterase [Presence] in Urine by Test strip NEG ZAYNAB L: Negative [facility] Urobilinogen [Mass/volume] in Urine by Test strip NOR less kenna n 1.0 mg/dL [facility] MICROSCOPIC Not Indicate [facility] ID Date Data Source [id number] 12/27/2020 08:52:00 AM EDT [facility] Name Value Range Interpretation Code Description Data [place] rce(s) Supporting Document(s) SARS coronavirus 2 RNA [Presence] in Res piratory specimen by MARK with probe detection NEGATIVE [facility] This lab was ordered by [facility] a nd reported by [facility]. ID Date Data Source [id number] 11/07/2020 04:47:00 AM EDT [facility] Name Value Range Interpretation Code Description Data [place] rce(s) Supporting Document(s) SARS coronavirus 2 RNA [Presence] in Res piratory specimen by MARK with probe detection NEGATIVE [facility] This lab was ordered by [facility] a nd reported by [facility]. ID Date Data Source [id number] 11/03/2020 11:35:00 AM EDT [facility] 1 OrderSheet [facility] Emergency Department [address] [place] [address] Phone #: ext- [phone] 11/03/2020 11:35 Patient: [...] M.D.;UA Reflex to UA 14:14 11/03/2020 14:44 [facility] Evonne Hagen Tiffany ER M.D.; Vyid9Courgi Acid STAT 14:14 11/03/2020 14:24 Evonne Bhatti [...] 25 mg M.D.;(NOW x1, HIGH 2 OrderSheet [facility] Emergency Department [address] [place] [address] Phone #: ext- [phone] 11/03/2020 11:35 Patient: BRUNA LEE Sex: F [...] rce(s) Supporting Document(s) ID Date Data Source [id number] 11/03/2020 11:35:00 AM EDT [facility] 1 Medication Reconciliation Report [facility] Emergency Department [address] [place] [address] Phone #: ext- [phone] 11/03/2020 11:35 Patient: [...] Name Value Range Interpretation Code Description Data [facility](s) Supporting Document(s) ID Date Data Source [id number] 11/03/2020 11:35:00 AM EDT [facility] 1 Medication Administration Record [facility] Emergency Department [address] [place] [address] Phone #: ext- [phone] 11/03/2020 11:35 Patient: [...] rce(s) Supporting Document(s) ID Date Data Source [id number] 11/03/2020 11:35:00 AM EDT [facility] 1 General Instructions [facility] Emergency Department [address] [place] [address] Phone #: ext- [phone] 11/03/2020 11:35 Patient: BRUNA ELE Sex: F : 1985 Age: 35yDiarrhea (resolved).Chronic [...] ADDITIONAL INFORMATIONViral Diarrhea (Adult) 2 General Instructions [facility] Emergency Department [address] [place] [address] Phone #: [phone] rei- [phone] 11/03/2020 11:35 Patient: BRUNA LEE Sex: F [...] replace what is lost. 3 General Instructions [facility] Emergency Department [address] [place] [address] Phone #: ext- [phone] 11/03/2020 11:35 Patient: BRUNA LEE Sex: F : 1985 Age: 35yAntibiotics are not effective in this illness, but there are a number of things you can do at home thatwill help.Home careFollow these home care measures: If symptoms are severe, rest at home for the next 24 hours or until you are feeling better. Wash your hands with soap and water or alcohol-based sample carrier to prevent the spread of infection. Wash [...] Keep uncooked meats away from cooked and whoqj-ej-sok foods.Medicines: You may use acetaminophen or NSAIDS [...] cramping, and pain worse. 4 General Instructions [facility] Emergency Department [address] [place] [address] Phone #: ext- [phone] 11/03/2020 11:35 Patient: [...] to seek medical advice 5 General Instructions [facility] Emergency Department [address] [place] [address] Phone #: ext- [phone] 11/03/2020 11:35 Patient: BRUNA LEE Sex: F [...] or as directed by your healthcare provider [facility] 911Call 911 if any of the following occur: Trouble breathing Confused Severe drowsiness or trouble awakening Fainting or loss of consciousness Rapid heart rate Seizure Stiff neck [phone] [employer] [place] [address]. All rights reserved. This information is not intended as asubstitute for professional medical care. Always follow your healthcare professional's instructions.Unknown Causes of Abdominal Pain (Female) 6 General Instructions [facility] Emergency Department [address] [place] [address] Phone #: ext- [phone] 11/03/2020 11:35 Patient: [...] for taking these medicines. 7 General Instructions [facility] Emergency Department [address] [place] [address] Phone #: ext- [phone] 11/03/2020 11:35 Patient: BRUNA LEE Sex: F : 1985 [facility] 35[facility] Rest as much as you can [...] begin to improve in thenext 24 hours.Call 911Oall [phone] if any of these occur: Trouble breathing Confusion Fainting or loss of consciousness Rapid heart rate 8 General Instructions [facility] Emergency Department [address] [place] [address] Phone #: ext- [phone] 11/03/2020 11:35 Patient: BRUNA LEE Sex: F [...] or water and you are getting dehydrated [id number] [employer]. [address] [place] [address]. All rights reserved. This information is not [...] feel: Helpless Nervous Depressed 9 General Instructions [facility] Emergency Department [address] [place] [address] Phone #: ext- [phone] 11/03/2020 11:35 --- [...] (Avoid hassles, limit the 10 General Instructions [facility] Emergency Department [address] [place] [address] Phone #: ext- [phone] 11/03/2020 11:35 Patient: [...] to seek medical advice 11 General Instructions [facility] Emergency Department [address] [place] [address] Phone #: ext- [phone] 11/03/2020 11:35 Patient: BRUNA LEE Sex: F : 1985 Age: 35yCall your healthcare provider right away if any of these happen: Your symptoms get worse Severe headache not relieved by rest and mild pain reliever [employer]. [address] [place] [address]. All rights reserved. This information is not intended as asubstitute for professional medical care. Always follow your healthcare professional's instructions. You have been given the following additional information: Diarrhea, Viral (Adult) Abdominal Pain, Unknown Cause, (Female) Anxiety Reaction(Electronically signed by Evonne Hagen M.D. 11/03/2020 18:01) Name Value Range Interpretation Code Description Data [place] rce(s) Supporting Document(s) ID Date Data Source [id number] 11/03/2020 11:35:00 AM EDT [facility] 1 Clinical Report - Nurses [facility] Emergency Department [address] [place] [address] Phone #: ext- [phone] 11/03/2020 11:35 Patient: BRUNA LEE Sex: F : 1985 Age: 35yTRIAGEArrived by EMS. Historian: patient.Acuity: LEVEL 3.Chief Complaint: ABDOMINAL PAIN and DIARRHEA.Onset. (6 months ago). 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 See [...] Quiroz RN. 2 Clinical Report - Nurses [facility] Emergency Department [address] [place] [address] Phone #: ext- [phone] 11/03/2020 11:35 Patient: [...] treatment room. --13:59 11/03/20 Genaro Quiroz RN.PHYSICAL [id number] 11/03/20. To room via wheelchair.GENERAL / NEURO [...] Davis RN. 3 Clinical Report - Nurses [facility] Emergency Department [address] [place] [address] Phone #: ext- [phone] 11/03/2020 11:35 Patient: BRUNA LEE Sex: F [...] F. Pain level now 08/05. --15:10 11/03/20 [employer], [facility] Tech1 15:25 11/03/20. Condition at departure: stable. No learning barriers present. Discharge instructions provided and reviewed with the patient. Patient verbalized understanding. Written instructions provided in [place] Island[place]. The patient was discharged home. She left ambulatory and via private vehicle. Patient driving. --15:11/03/20 Sayda Davis RN.Locked/Released at 11/03/2020 15:29 by Sayda Davis RN Name Value Range Interpretation Code Description Data [place] rce(s) Supporting Document(s) ID Date Data Source [id number] 11/03/2020 11:35:00 AM EDT [facility] 1 Clinical Report - Physicians/Mid Levels [facility] Emergency Department [address] [place] [address] Phone #: ext- [phone] 11/03/2020 11:35 [id number] Sex[facility] F : 1985 Age: 35y Time [...] Disease. 2 Clinical Report - Physicians/Mid Levels [facility] Emergency Department [address] [place] [address] Phone #: ext- [phone] 11/03/2020 11:35 Patient: [...] results 3 Clinical Report - Physicians/Mid Levels [facility] Emergency Department [address] [place] [address] Phone #: ext- [phone] 11/03/2020 11:35 Patient: BRUNA LEE Sex: F [...] Male GFR Interprentation 20-49 yrs >60 mL/min Bdzcnb48-23 yrs >56 mL/min Normal 60-69 yrs >49 mL/min Normal 70-79yrs>42 mL/min Normal 80 and above >35 mL/min Normal Female GFRInterpretation 20-39 yrs >60 mL/min Normal 40-49 yrs >58 mL/min 4 Clinical Report - Physicians/Mid Levels [facility] Emergency Department [address] [place] [address] Phone #: ext- [phone] 11/03/2020 11:35 Patient: [...] TO UA CULTURE: (JENN: 11/03/2020 14:30) ( [facility] 11/03/2020 14:37) Final results Test Result Flag [...] Indicate Lactic Acid: (JENN: 11/03/2020 14:18) ( [facility] 11/03/2020 14:30) Final results Test Result Flag Units (Reference) LACTIC ACID 1.0 MMOL/L (0.2 - 2.2) Beta-HCG, Qual Seru m: (JENN: 11/03/2020 14:18) ( [facility] 11/03/2020 14:45) Final results Test Result Flag Units (Reference) HCG SERUM QUAL NEGATIVE (NORMAL: NEGAT HCG SERUM QL REENTER NEGATIVE (NORMAL: NEGAT { KIT LOT # [id number] ){ KIT EXP DATE 02.25.22 ){ PROCEDURAL [...] accurately reflects the information as submitted by [facility]. This report was requested by: Evonne Hagen Reference #: [id number] Clinical Report - Physicians/Mid Levels [facility] Emergency Department [address] [place] [address] Phone #: ext- [phone] 11/03/2020 11:35 Patient: BRUNA LEE Sex: F : 1985 Age: 35yOthers' PrescriptionsPatient Name: Bruna LeeBirth Date: 1985Address: [address] [place] [id number]: FemaleRx Written Rx Dispensed Drug Quantity Days Supply Prescriber Name Prescriber Shiloh # Payment JxxavdPjwwappzk96/10/2021 05/05/2020 buprenorphine-naloxone 8-2 mg sl film 56 [...] #15Patient Name: Bruna LeeBirth Date: 1985Address: [address] [place], [place] [address]Aea: FemaleRx Written Rx Dispensed Drug Quantity Days Supply Prescriber Name Prescriber Shiloh # Payment FfmfarTntypkoxt28/07/2020 12/03/2019 buprenorphine-naloxone 8-2 mg sl film 56 28 Jose J Mao MD [id number] [facility] #80911/21/2019 vyvanse 50 mg capsule 15 15 Karolyn Van ([facility]) [id number] [facility]1509[facility]/06/2019 clonazepam 0.5 mg tablet 7 7 Karolyn Van ([facility]) [id number] [facility] #15Patient Name: Bruna LeeBirth Date: 1985Address: [address] [place], [place] [address]Zvi: FemaleRx Written Rx Dispensed Drug Quantity Days Supply Prescriber Name Prescriber Shiloh # Payment AonumjOeifchjtl51/07/2021 09/01/2020 buprenorphine- naloxone 8-2 mg sl film 28 14 Jose J Mao MD [id number] [facility] #15008/18/2020 08/18/2020 buprenorphine-naloxone 8-2 mg sl film 28 14 Jose J Mao MD [id number] [facility] #15007/14/2020 07/21/2020 buprenorphine-naloxone 8-2 mg sl film 56 28 Jose J Mao MD [id number] icaid [facility] #15006/24/2020 06/24/2020 buprenorphine-naloxone 8-2 mg sl film 56 28 Jose J Mao MD [id number] [facility] #15* - Drugs marked with an asterisk are compound drugs. If the compound drug is made up of more than onecontrolled substance, then each controlled substance will be a separate row in the table. 6 Clinical Report - Physicians/Mid Levels [facility] Emergency Department [address] [place] [address] Phone #: ext- [phone] 11/03/2020 11:35 Patient: BRUNA LEE Sex: F : 1985 Age: 35y 15:08 11/03/20. workup all in and reviewed and nml; pt started to get anxious and swearing, was told to lower her voice or else we would call police, and she did for now; will give some ativan and d/c home; pt advised to f/u w [employer], she undertsands. Patient counseled in person regarding [...] if 7 Clinical Report - Physicians/Mid Levels [facility] Emergency Department [address] [place] [address] Phone #: ext- [phone] 09/08/2021 11:35 [id number] Sex: F : 1985 Age: 35y not [...] rce(s) Supporting Document(s) ID Date Data Source [id number] 11/03/2020 02:36:00 PM EDT [facility] Name Value Range Interpretation Code Description Data [place] rce(s) Supporting Document(s) UA REFLEX TO UA CULTURE [facility] URINALYSIS SOURCE R [facility] Hospit al COLOR yellow NORMAL: Yellow [facility] CLARITY clear NORMAL: Clear [facility] Ho spital Specific gravity of Urine by Test strip 1.010 1.001 - 1.030 [facility] pH 7 5 - 9 [facility] Glucose [Mass/volume] in Urine by Test strip NORM NORMAL: Negat [facility] Bilirubin.total [Presence] in Urine by Test strip NEG NORMAL: Negative [facility] Ketones [Presence] in Urine by Test strip NEG NORMAL: Negative [facility] Protein [Mass/volume] in Urine by Test strip NEG NORMAL: Negat [facility] Nitrite [Presence] in Urine by Test strip NEG NORMAL: Negative [facility] BLOOD NEG NORMAL: Negative [facility] Leukocyte esterase [Presence] in Urine by Test strip NEG ZAYNAB L: Negative [facility] Urobilinogen [Mass/volume] in Urine by Test strip NOR less kenna n 1.0 mg/dL [facility] MICROSCOPIC Not Indicate [facility] ID Date Data Source [id number] 11/03/2020 02:56:00 PM EDT [facility] Name Value Range Interpretation Code Description Data [place] rce(s) Supporting Document(s) Lipase [Enzymatic activity/volume] in Serum or Plasma 10 U/L 13 - 60 L [facility] ID Date Data Source [id number] 11/03/2020 02:56:00 PM EDT [facility] Name Value Range Interpretation Code Description Data [place] rce(s) Supporting Document(s) COMPREHENSIVE METABOLIC PANEL [facility] COMPREHENSIVE METABOLIC PANEL Sodium [Moles/volume] in Serum or Plasma 136 mEq/L 134 - 153 [facility] Potassium [Moles/volume] in Serum or Plasma 4.2 mEq/L 3.6 - 5.0 [facility] Chloride [Moles/volume] in Serum or Plasma 100 mEq/L 98 - 107 [facility] Carbon dioxide, total [Moles/volume] in Serum or Plasma 25 MEQ/L 22 - 30 [facility] Glucose [Mass/volume] in Serum or Plasma 140 MG/DL 70 - 99 H [facility] BUN 12 MG/DL 7 - 21 [facility] al Creatinine [Mass/volume] in Serum or Plasma 0.5 MG/DL 0.7 - 1.5 L [facility] BUN/CREAT 24 8 - 27 [facility] Protein [Mass/volume] in Serum or Plasma 7.1 G/DL 6.3 - 8.2 [facility] Albumin [Mass/volume] in Serum or Plasma 4.6 G/DL 3.9 - 5.0 [facility] Globulin [Mass/volume] in Serum by calculation 2.5 GM/DL 2.4 - 3.2 [facility] A/G RATIO 1.8 0.8 - 2.0 [facility] Calcium [Mass/volume] in Serum or Plasma 9.8 MG/DL 8.4 - 10.2 [facility] Bilirubin.total [Mass/volume] in Serum or Plasma <0.7 MG/DL 0.2 - 1.3 [facility] Alkaline phosphatase [Enzymatic activity/volume] in Serum or Plasma 111 U/L 38 - 126 [facility] Aspartate aminotransferase [Enzymatic activity/volume] in Serum or Plasma 74 U/L 5 - 40 H [facility] Alanine aminotransferase [Enzymatic activity/volume] in Seru m or Plasma 91 U/L 7 - 56 H [facility] Anion gap 3 in Serum or Plasma 11.0 mmol/L 8.0 - 16.0 [facility] AGE 35 yrs [facility] NON-AA [...] >32 mL/min Normal ID Date Data Source [id number] 11/03/2020 02:44:00 PM EDT [facility] Name Value Range Interpretation Code Description Data [place] rce(s) Supporting Document(s) HCG SERUM QUAL NEGATIVE NORMAL: NEGATIVE [facility] HCG SERUM QL REENTER NEGATIVE NORMAL: NEGATIVE [facility] { KIT LOT # [id number] ){ KIT EXP DATE 02.25.22 ){ PROCEDURAL CONTROL VALID ) ID Date Data Source [id number] 11/03/2020 02:30:00 PM EDT [facility] Name Value Range Interpretation Code Description Data [place] rce(s) Supporting Document(s) Lactate [Moles/volume] in Serum or Plasma 1.0 MMOL/L 0.2 - 2.2 [facility] ID Date Data Source [id number] 11/03/2020 02:28:00 PM EDT [facility] Name Value Range Interpretation Code Description Data [place] rce(s) Supporting Document(s) CBC W/AUTOMATED DIFF [facility] COMPLETE BLOOD COUNT Leukocytes [#/volume] in Blood by Automated count 6.8 10^3/uL 4.2 - 1 1.0 [facility] Erythrocytes [#/volume] in Blood by Automated count 3.89 10^6/uL 4. 20 - 5.40 L [facility] Hemoglobin [Mass/volume] in Blood 11.6 g/dL 12.0 - 16.0 L [facility] Hematocrit [Volume Fraction] of Blood by Automated count 35.3 % 3 7.0 - 47.0 L [facility] Erythrocyte mean corpuscular volume [Entitic volume] by Auto mated count 90.7 fL 81.0 - 101 [facility] Erythrocyte mean corpuscular hemoglobin [Entitic mass] by Automated count 29.8 pg 27.0 - 34.0 [facility] Erythrocyte mean corpuscular hemoglobin concentration [Mass/volume] by Automated count 32.9 g/dL 31.0 - 36.0 [facility] Erythrocyte distribution width [Ratio] by Automated count 14.0 % 11.5 - 14.5 [facility] Platelets [#/volume] in Blood by Automated count 331 10^3/uL 150 - 45 0 [facility] Platelet mean volume [Entitic volume] in Blood by Automated count 9.7 fL 7.4 - 10.4 [facility] Neutrophils/100 leukocytes in Blood by Automated count 69.7 % 37. 0 - 80.0 [facility]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 gravity of Urine by Refractometry automated 1.012 1.003 -1.030 [facility] pH of Urine by Automated test strip 7.0 5.0-8.0 [facility] Protein [Mass/volume] in Urine by Automated test strip Neg [facility] Glucose [Mass/volume] in Urine by Automated test strip Neg [facility] Ketones [Mass/volume] in Urine by Automated test strip Neg [facility] Bilirubin.total [Presence] in Urine by Automated test strip Negative [facility] Hemoglobin [Presence] in Urine by Automated test strip Neg ative A [facility] Leukocyte esterase [Presence] in Urine by Automated test strip Negative [facility] Nitrite [Presence] in Urine by Automated test strip Negati ve [facility] Leukocytes [#/area] in Urine sediment by Automated count 0 -5 [facility] Erythrocytes [#/area] in Urine sediment by Automated count 7 /HPF 0-3 H [facility] ID Date Data Source [id number] 09/09/2020 04:46:00 PM EDT [facility] 1 OrderSheet [facility] Emergency Department [address] [place] [address] Phone #: ext- [phone] 09/09/2020 16:40 Patient: [...] Norma MD; Bruna Farrar R.N. 2 OrderSheet [facility] Emergency Department [address] [place] [address] Phone #: ext- [phone] 09/09/2020 16:40 Patient: BRUNA LEE Sex: F : 1985 Age: 35y R.N.[Electronically signed by Bruna Farrar R.N. (22:38 09/09/2020)][Electronically signed by Zaynab Steven MD (07:17 09/11/2020)][Electronically locked by Bruna Farrar R.N. (:38 09/09/2020)] Name Value Range Interpretation Code Description Data [place] rce(s) Supporting Document(s) ID Date Data Source [id number] 09/09/2020 04:46:00 PM EDT [facility] 1 Medication Reconciliation Report [facility] Emergency Department [address] [place] [address] Phone #: ext- [phone] 09/09/2020 16:40 Patient: [...] Home Medication information:patient 2 Medication Reconciliation Report [facility] Emergency Department [address] [place] [address] Phone #: ext- [phone] 09/09/2020 16:40 Patient: BRUNA LEE Sex: F : 1985 Age: 35yThe following Medications were given to the patient in the Emergency Department:None.The following Medications were prescribed to the patient:None. Name Value Range Interpretation Code Description Data [facility](s) Supporting Document(s) ID Date Data Source [id number] 09/09/2020 04:46:00 PM EDT [place] [address] Medication Administration Record [facility] Emergency Department [address] [place] [address] Phone #: ext- [phone] 09/09/2020 16:40 Patient: BRUNA LEE Sex: F : 1985 Age: 35yWeight: 68.9 kgHeight/Length: 60 inBMI: 29.7ALLERGIES: Sulfur, Amoxicillin, Penicillins, Bactrim, Certain antipsycoticsDate/Time Medication Administered Medication Ordered Name Value Range Interpretation Code Description Data [place] rce(s) Supporting Document(s) ID Date Data Source [id number] 09/09/2020 04:46:00 PM EDT [facility] 1 General Instructions [facility] Emergency Department [address] [place] [address] Phone #: ext- [phone] 09/09/2020 16:40 Patient: BRUNA LEE Sex: F [...] Severe anxiety Feeling unreal 2 General Instructions [facility] Emergency Department [address] [place] [address] Phone #: ext- [phone] 09/09/2020 16:40 Patient: [...] providers about all of the prescription medicines, cdgr-pdh-nbpnxti medicines, and supplements you take. Certain supplements [...] operates a toll-free ADA information line at: [phone] (voice) or [phone] (TTY). They can help you locate a local office.Follow-up careFollow up with your doctor or therapist , or as advised.Jae [place] [address] [phone] if you: 3 General Instructions [facility] Emergency Department [address] [place] [address] Phone #: ext- [phone] 09/09/2020 16:40 Patient: [...] yourself or others Worsening depression or anxiety [id number] [employer] [place] [address]. All rights reserved. This information is not intended as asubstitute for professional medical care. Always follow your healthcare professional's instructions. You have been given the following additional information: Schizophrenia, General(Electronically signed by Zaynab Steven MD 09/11/2020 07:17) 4 General Instructions [facility] Emergency Department [address] [place] [address] Phone #: ext- [phone] 09/09/2020 16:40 Patient: BRUNA LEE Sex: F : 1985 Age: 35y Name Value Range Interpretation Code Description Data [place] r[facility](s) Supporting Document(s) ID Date Data Source [id number] 09/09/2020 04:46:00 PM EDT [facility] 1 Clinical Report - Nurses [facility] Emergency Department [address] [place] [address] Phone #: ext- [phone] 09/09/2020 16:40 Patient: [...] Amado Chow 2 Clinical Report - Nurses [facility] Emergency Department [address] [place] [address] Phone #: ext- [phone] 09/09/2020 16:40 Patient: [...] factors identified. 3 Clinical Report - Nurses [facility] Emergency Department [address] [place] [address] Phone #: ext- [phone] 09/09/2020 16:40 Patient: [...] yell profanity 4 Clinical Report - Nurses [facility] Emergency Department [address] [place] [address] Phone #: ext- [phone] 09/09/2020 16:40 Patient: BRUNA LEE Sex: F [...] left the Emergency Department ambulatory. ( [employer]). --22:35 09/09/20 Bruna Farrar R.N. 21:35 [...] rce(s) Supporting Document(s) ID Date Data Source [id number] 09/09/2020 04:46:00 PM EDT [facility] 1 Clinical Report - Physicians/Mid Levels [facility] Emergency Department [address] [place] [address] Phone #: ext- [phone] 09/09/2020 16:40 Patient: BRUNA LEE Sex: F [...] Pain. 2 Clinical Report - Physicians/Mid Levels [facility] Emergency Department [address] [place] [address] Phone #: ext- [phone] 09/09/2020 16:40 Patient: BRUNA LEE Sex: F [...] (Reference) 3 Clinical Report - Physicians/Mid Levels [facility] Emergency Department [address] [place] [address] Phone #: ext- [phone] 09/09/2020 16:40 Patient: BRUNA LEE [facility]#: [id number] Sex: F : 1985 Age: 35y CBC [...] Male GFR Interprentation 20-49 yrs >60 mL/min Soosei27-79 yrs >56 mL/min Normal 60-69 yrs >49 mL/min Normal 70-79yrs>42 mL/min Normal 80 and above >35 mL/min Normal Female GFRInterpretation 20-39 yrs >60 mL/min Normal 40-49 yrs >58 mL/minNormal 50-59 yrs >51 mL/min Normal 60-69 yrs >45 mL/min Normal 4 Clinical Report - Physicians/Mid Levels [facility] Emergency Department [address] [place] [address] Phone #: ext- [phone] 09/09/2020 16:40 [id number] Sex: F : 1985 Age: 64v75-03 yrs >39 mL/min Normal 80 and above >32 mL/min NormalUrinalysis: (JENN: 09/09/2020 17:40) ( [facility] 09/09/2020 18:04) Final results Test Result Flag [...] Not IndicateDrug Screen-Urine: (JENN: 09/09/2020 17:40) ( [facility] 09/09/2020 18:19) Final results Test Result Flag [...] PERFORMED AT [facility].ETOH: (JENN: 09/09/2020 17:40) ( [facility] 09/09/2020 18:29) Final results Test Result Flag Units (Reference) ALCOHOL <10.0 MG/DL ALCOHOL % 0.01 % (0.00 - 0.01) *FOR MEDICAL PURPOSES ONLY*Magnesium: (JENN: 09/09/2020 17:40) ( [facility] 09/09/[facility] 18:54) Final results Test Result Flag Units (Reference) MAGNESIUM 2.2 MG/DL (1.7 - 2.2)Acetaminophen Level: (JENN: 09/09/2020 17:40) ( [facility] 09/09/2020 18:29) Final results Test Result Flag Units (Reference) 5 Clinical Report - Physicians/Mid Levels [facility] Emergency Department [address] [place] [address] Phone #: ext- [phone] 09/09/2020 16:40 Patient: BRUNA LEE Sex: F : 1985 Age: 35y ACETAMINOPHEN <5.0 UG/ML (0.0 - 30.0) Salicylate Level: (JENN: 09/09/2020 17:40) ( [facility] 09/09/2020 18:36) Final results Test Result Flag [...] 09/11/2020 07:17) 6Clinical Report - Physicians/Mid Levels [facility] Emergency Department [address] [place] [address] Phone #: ext- [phone] 09/09/2020 16:40 Patient: BRUNA LEE Sex: F : 1985 Age: 35y Name Value Range Interpretation Code Description Data [place] [facility](s) Supporting Document(s) ID Date Data Source [id number] 09/11/2020 01:50:00 [place] [address] RESPIRATORY CARE REPORT ==== ---------NAME------- NUMBER SEX AGE ADMIT DISC. XRAY# F/C TYPECOME BRUNA [id number] F 35 09/09/20 09/09/20 [id number] E/R DATE OF : 1985 M/R# [id number] #: [id number] VT-05 LOCATION: EMERGENCY DEPT [facility] [id number] COMPLE TE:09/10/20 01:43 T [id number] PHYSICIAN: AUTUMN ZENG Name Value Range Interpretation Code Description Data [place] rce(s) Supporting Document(s) ID Date Data Source [id number] 09/10/2020 06:29:00 [facility] Name Value Range Interpretation Code Description Data [place] rce(s) Supporting Document(s) SARS coronavirus 2 RNA [Presence] in Res piratory specimen by MARK with probe detection NEGATIVE [facility] This lab was ordered by [facility] a nd reported by [facility]. ID Date Data Source [id number] 09/09/2020 06:53:00 PM EDT [facility] Name Value Range Interpretation Code Description Data [place] rce(s) Supporting Document(s) Magnesium [Mass/volume] in Serum or Plasma 2.2 MG/DL 1.7 - 2.2 [facility] ID Date Data Source [id number] 09/09/2020 06:52:00 PM EDT [facility] Name Value Range Interpretation Code Description Data [place] rce(s) Supporting Document(s) COMPREHENSIVE METABOLIC PANEL [facility] COMPREHENSIVE METABOLIC PANEL Sodium [Moles/volume] in Serum or Plasma 137 mEq/L 134 - 153 [facility] Potassium [Moles/volume] in Serum or Plasma 4.0 mEq/L 3.6 - 5.0 [facility] Chloride [Moles/volume] in Serum or Plasma 99 mEq/L 98 - 107 [facility] Carbon dioxide, total [Moles/volume] in Serum or Plasma 27 MEQ/L 22 - 30 [facility] Glucose [Mass/volume] in Serum or Plasma 103 MG/DL 70 - 99 [facility] BUN 11 MG/DL 7 - 21 [facility] Creat[facility] [Mass/volume] in Serum or Plasma 0.7 MG/DL 0.7 - 1.5 [facility] BUN/CREAT 16 8 - 27 [facility] al Protein [Mass/volume] in Serum or Plasma 7.1 G/DL 6.3 - 8.2 [facility] Albumin [Mass/volume] in Serum or Plasma 4.6 G/DL 3.9 - 5.0 [facility] Globulin [Mass/volume] in Serum by calculation 2.5 GM/DL 2.4 - 3.2 [facility] A/G RATIO 1.8 0.8 - 2.0 [facility] Calcium [Mass/volume] in Serum or Plasma 9.8 MG/DL 8.4 - 10.2 [facility] Bilirubin.total [Mass/volume] in Serum or Plasma <0.7 MG/DL 0.2 - 1.3 [facility] Alkaline phosphatase [Enzymatic activity/volume] in Serum or Plasma 68 U/L 38 - 126 [facility] Aspartate aminotransferase [Enzymatic activity/volume] in Serum or Plasma 22 U/L 5 - 40 [facility] Alanine aminotransferase [Enzymatic activity/volume] in Seru m or Plasma 16 U/L 7 - 56 [facility] Anion gap 3 in Serum or Plasma 11.0 mmol/L 8.0 - 16.0 [facility] AGE 35 yrs [facility] al NON-AA GFR >60 mL/min [facility] ital AFR AMER GFR >60 mL/min [place] [...] >32 mL/min Normal ID Date Data Source [id number] 09/09/2020 06:36:00 PM EDT [facility] Name Value Range Interpretation Code Description Data [place] rce(s) Supporting Document(s) SALICYLATE <0.3 mg/dL 2.0 - 20.0 L [facility] ID Date Data Source [id number] 09/09/2020 06:29:00 PM EDT [facility] Name Value Range Interpretation Code Description Data [place] rce(s) Supporting Document(s) Acetaminophen [Presence] in Urine <5.0 UG/ML 0.0 - 30.0 [facility] ID Date Data Source [id number] 09/09/2020 06:29:00 PM EDT [facility] Name Value Range Interpretation Code Description Data [place] rce(s) Supporting Document(s) Ethanol [Moles/volume] in Blood <10.0 MG/DL [facility] ALCOHOL % 0.01 % 0.00 - 0.01 [facility] ital *FOR MEDICAL PURPOSES ONLY * ID Date Data Source [id number] 09/09/2020 06:18:00 PM EDT [facility] Name Value Range Interpretation Code Description Data [place] rce(s) Supporting Document(s) DRUG SCREEN URINE [facility] URINE DRUG SCREEN Amphetamine [Presence] in Urine by Screen method NEGATIVE NORMAL: N EGATIVE [facility] BARBITURATES NEGATIVE NORMAL: NEGATIVE [facility] BENZO NEGATIVE NORMAL: NEGATIVE [facility] COCAINE NEGATIVE NORMAL: NEGATIVE [facility] Tetrahydrocannabinol [Presence] in Urine NEGATIVE NORMAL: NEGATIVE [facility] OPIATES NEGATIVE NORMAL: NEGATIVE [facility] Phencyclidine [Presence] in Urine by Screen method NEGATIVE NOR MAL: NEGATIVE [facility] \\BLDo\\URINE DRUG SCR EEN INTERPRETATION\\BLDx\\ THE CUTOFFF LEVELS FOR DETECTION ARE FOLLOWS: AMPHETAMINES 1000 ng/ml BARBITUARATES 200 ng/ml BENZODIAZEPINES 100 ng/ml THC 50 ng/ml PHENCYCLIDINE 25 ng/ml OPIATES 300 ng/ml COCAINE 300 ng/ml ALL POSITIVES ARE CONSIDERED PRESUMPTIVE POSITIVE CONFIRMATION WILL BE PERFORMED AT PHYSICIAN REQUEST. ID Date Data Source [id number] 09/09/2020 06:04:00 PM EDT [facility] Name Value Range Interpretation Code Description Data [place] rce(s) Supporting Document(s) CBC W/AUTOMATED DIFF [facility] COMPLETE BLOOD COUNT Leukocytes [#/volume] in Blood by Automated count 9.6 10^3/uL 4.2 - 1 1.0 [facility] Erythrocytes [#/volume] in Blood by Automated count 4.34 10^6/uL 4. 20 - 5.40 [facility] Hemoglobin [Mass/volume] in Blood 12.7 g/dL 12.0 - 16.0 [facility] Hematocrit [Volume Fraction] of Blood by Automated count 38.1 % 3 7.0 - 47.0 [facility] Erythrocyte mean corpuscular volume [Entitic volume] by Auto mated count 87.8 fL 81.0 - 101 [facility] Erythrocyte mean corpuscular hemoglobin [Entitic mass] by Automated count 29.3 pg 27.0 - 34.0 [facility] Erythrocyte mean corpuscular hemoglobin concentration [Mass/volume] by Automated count 33.3 g/dL 31.0 - 36.0 [facility] Erythrocyte distribution width [Ratio] by Automated count 13.5 % 11.5 - 14.5 [facility] Platelets [#/volume] in Blood by Automated count 357 10^3/uL 150 - 45 0 [facility] Platelet mean volume [Entitic volume] in Blood by Automated count 9.6 fL 7.4 - 10.4 [facility] Neutrophils/100 leukocytes in Blood by Automated count 50.9 % 37. 0 - 80.0 [facility] Lymphocytes/100 leukocytes in Blood by Manual count 39.4 % 25.0 - 40.0 [facility] Monocytes/100 leukocytes in Blood by Automated count 7.5 % 3.0 - 8.0 [facility] Eosinophils/100 leukocytes in Blood by Automated count 1.1 % 0.0 - 7.0 [facility] Basophils/100 leukocytes in Blood by Automated count 0.6 % 0.0 - 2.5 [facility] %IG 0.5 % 0.0 - 0.0 [facility] %NRBC 0.0 % 0.0 - 0.0 [facility] al Neutrophils [#/volume] in Blood by Automated count 4.86 10^3/uL 2.00 - 6.90 [facility] Lymphocytes [#/volume] in Blood by Automated count 3.77 10^3/uL 0.60 - 3.40 H [facility] Monocytes [#/volume] in Blood by Automated count 0.72 10^3/uL 0.00 - 0.90 [facility] Eosinophils [#/volume] in Blood by Automated count 0.11 10^3/uL 0.00 - 0.70 [facility] Basophils [#/volume] in Blood by Automated count 0.06 10^3/uL 0.00 - 0.20 [facility] #IG 0.05 10^3/uL 0.00 - 0.10 [facility] #NRBC 0.00 10^3/uL 0.00 - 0.00 [facility] ospital MANUAL DIFF NOT INDICATED [facility] RBC MORPH NOT INDICATED [facility] spital ID Date Data Source [id number] 09/09/2020 06:04:00 PM EDT [facility] Name Value Range Interpretation Code Description Data [place] rce(s) Supporting Document(s) [facility] R [facility] COLOR yellow NORMAL: Yellow [facility] ospital CLARITY clear NORMAL: Clear [facility] spital Specific gravity of Urine by Test strip 1.010 1.001 - 1.030 [facility] pH 7 5 - 9 [facility] Glucose [Mass/volume] in Urine by Test strip NORM NORMAL: Negat [facility] Bilirubin.total [Presence] in Urine by Test strip NEG NORMAL: Negative [facility] Ketones [Presence] in Urine by Test strip NEG NORMAL: Negative [facility] Protein [Mass/volume] in Urine by Test strip NEG NORMAL: Negat [facility] Nitrite [Presence] in Urine by Test strip NEG NORMAL: Negative [facility] BLOOD NEG NORMAL: Negative [facility] LEUK EST NEG NORMAL: Negative [facility] Urobilinogen [Mass/volume] in Urine by Test strip NOR less kenna n 1.0 mg/dL [facility] MICROSCOPIC Not Indicate [facility] ospital ID Date Data Source [id number] 08/27/2020 04:17:02 PM EDT [facility] Name Value Range Interpretation Code Description Data [place] rce(s) Supporting Document(s) Discharge Summary [facility] IGVYYz7qGwHRQmRu90/DYUxcDWWsy1CaNEnoNFp8XFucMDGlK5BfFIX0wB8tBDB0HLaOAoTyPzSzXdRz lbm MeSsxRIzGoJVNaLjfWYeEfPZtmAjxhoDBaXQ3RdWD7GADjE13lCMKxKOZzV9YqIMR3HPO+Kc3BXJAyrG XiJE2KPeiC9K4Qo2mHFb3vub5RT8LEmbTLwmOJwBvWzrnPXktV3nGX822OYDLJtsGZVkdo/Szo7Ot08B wpNyW5SrysHitoy14pqXLpio8+CpwaAkrNkY97N62L itlG/V4jlw3Mqi2y7Pm7GIsPKEcUK1+gPlrmp1/6ucfL9laKVRXJuceyDd+6nDjerRJ7//H8vtA1BdGC o1VWrJEqegk4hyHNbcF9sQoi9Mxh+t2nQQAz41YnCiwYAi2Wx4zpAv1BbjZzSHzHjhefYiGslrPx27Ak Z1i9EaG6AkjbwQVbJk2usOSt8NHEMtJgw4oppSnz5o UqRB5sQX7LfaspKgsAClaK+cQm1rvQRwHOJ2akWgOYvwrW15rwNTEenFc5j+HZ5AEC8USG+oQK84DRiI gVO9EB1KkmOGdwYrJC3ujmrmlfQR+u2Az7IwUJ4uXub+LJuZyYccckHkDbbrxSc2KYhQeq6YUH9S1op+ n0kKl8ovYF6tlN7my5g5jFdMpdP81x6o7G4+2NodF8 dxrNSwtwqGh80q3L/AglvsrIFtoAAMF0DoWOzmtDj13b+uT8bgXiee9c9PIwqP4M2urkjyxnR17rb23h NhGjG/dvczNYi2HUbaKj+GyZiVUSLZsWbLqwacAmUxZ/EZENgXl2SNo4FTzuyjYnuDwjVhx0aeddDJhr lyuX6StnwDntpyI+XVjyB+kjKLezjWtVbTGgb11Pa3 4CP8NwkGYq9PGWWwF8/WF2HJgeTyeewPNU6SYGtVL/2/ae/Y6S/v6MAwZQM6pE+EJMY/90o8l6noI2f1 wzaUhT/y7g3wclf0QGoFLQXfgGKtkZ4Z9LyD6WXAUAxcadGVlJQJwZtXugGcHscwoqsNXbmGyYDJ+Anc IooXK4JDXW6nw/sGKfSIJFNXBPIOMCNZB7lmZWdOS8 [file] AgICAgICAgICAgICAgICAgICAgICAgICAgICAgICAg ICAgICAgICAgICAgICAgICAgICAgICAgICANCiAgICAgICAgICAgICAgICAgICAgICAgICAgICAgICAg ICAgICAgICAgICAgICAgICAgICAgICAgICAgICAgICAgICAgICAgICAgICAgICAgICAgICAgICAgICAg ICAgICAgICANCiAgICAgICAgICAgICAgICAgICAgIC AgICAgICAgICAgICAgICAgICAgICAgICAgICAgICAgICAgICAgICAgICAgICAgICAgICAgICAgICAgIC AgICAgICAgICAgICAgICAgICANCiAgICAgICAgICAgICAgICAgICAgICAgICAgICAgICAgICAgICAgIC AgICAgICAgICAgICAgICAgICAgICAgICAgICAgICAg ICAgICAgICAgICAgICAgICAgICAgICAgICAgICANCiAgICAgICAgICAgICAgICAgICAgICAgICAgICAg ICAgICAgICAgICAgICAgICAgICAgICAgICAgICAgICAgICAgICAgICAgICAgICAgICAgICAgICAgICAg ICAgICAgICAgICANCiAgICAgICAgICAgICAgICAgIC AgICAgICAgICAgICAgICAgICAgICAgICAgICAgICAgICAgICAgICAgICAgICAgICAgICAgICAgICAgIC AgICAgICAgICAgICAgICAgICAgICANCiAgICAgICAgICAgICAgICAgICAgICAgICAgICAgICAgICAgIC AgICAgICAgICAgICAgICAgICAgICAgICAgICAgICAg ICAgICAgICAgICAgICAgICAgICAgICAgICAgICAgICANCiAgICAgICAgICAgICAgICAgICAgICAgICAg ICAgICAgICAgICAgICAgICAgICAgICAgICAgICAgICAgICAgICAgICAgICAgICAgICAgICAgICAgICAg ICAgICAgICAgICAgICANCiAgICAgICAgICAgICAgIC AgICAgICAgICAgICAgICAgICAgICAgICAgICAgICAgICAgICAgICAgICAgICAgICAgICAgICAgICAgIC AgICAgICAgICAgICAgICAgICAgICAgICANCiAgICAgICAgICAgICAgICAgICAgICAgICAgICAgICAgIC AgICAgICAgICAgICAgICAgICAgICAgICAgICAgICAg ICAgICAgICAgICAgICAgICAgICAgICAgICAgICAgICAgICANCjw/iKEaP5zghHXlcgR1U5jkCb7BWq0J EO1zx1NsBTWmRXnyxtEbZizMTjVgSFVuCigAHez8DVivAW9CfOOqP3WkN0CnMPokWM1HOFYzEHFkyTPf LSIgZFZeBxU1BYRnMWkqHN7PdGBkRXdmXNYjMEHsEj HtKVEzJWKrGYDtXVZcZMADJZYgBXFuPmXdZAMvKMDuADnzZJYUVEH6RKBzEfFsDKJaEBAgGaXeKWCLWZ 8MYuEzS1LipG02ETGoKZu+Wa3AOX5mr7QfPQs7GlVwWY3txl4BMObEOuXrN4RqphF1MAJgHQHzDk1KLB CeGEEkxGZ3RnNeXWBGMhDqY4NiwP09GDWQQn8+DQpl gmOmMmjXNuYhIDLbu4IsSWc3PA8QGAGtBMv1nDQdCGanQ4jpxdsjDAP7bK4brlcqTojgOJHjaYcrQBki BR6iTS0JDXY2BRheAt9yCUSxDJKwWrC2ICRUTR7IDCRnHZXncNYbBDXwYYRWBC3QZVxgCWN2ECWmskVj zZInORjjOJ1RJLWetoUxIpLkPKPHPNi+Mi3DCI7vx4 OlBRr5HLUaLN9asa6IVDbBWkCyQ0S2eTKmZ2Y8DPwtLb1NFWVqPYJpEqGrDHCTSDwiMU9PNB7gliL0OU 8OeCTlLTGgGAOfcBHcCOh1O33kkEUaZGnfPG8PXYR+Luz+Me5DSMJgMWNrGGPxFjLmAGITDrBrG9JgQ3 FTv3ChP8BcHQ21nPizihTmVRvyOI1PTY3nTGLjIADO FM7FwUXvjZ2tveD3TeJhQNWDQdXfA42gkPGwEVHuJUOxVUIgRh3SGTWyD6FmdqUnlYvctoKsHOPeSGPA XX5YYSdyidAbiJXgxItlXD13oZqdKA3ERk3CRsTsCL4jeo2DyNTsCx4XBPW5OZ6RQATuVHHkMYNtGEN3 YQNaKeJyGOebYXFzUGNwEMC7UBEtNBFiOH8XTxEmFX GtEJD8VGtsZFPeSBUuhf1QFFWiGAW5LUneKMLtZKSyJTNwGCuzGJNrUHBjZPB8UUSjNQYtXB5QIbEuYP ZcVBCwTjohIOQeZWWdbp2APXDkEPBiREY0BhQnTNLnOJVvEUqgXWJyIIE9UTT9MVYuTLVbSJ3IIcBuFJ PeOUfmYwuvVPImRNPgza3QKLFbTSAyPBHtZkBrSEDg GWOhEOrpSEQyQJJsBtK9NWTsOECxUT4RDkVxXORaAEC6MwlxRFWxMISvip7TKDQkLZLfBOH9LLKzKCBb NCGrKIjzWZOpKPH5ZxV6WHJoQZEzWS8YTfZoARJlSSo9SHGaNJDoMBVmdd1PVJLmYDMrXvc9NnUdQNGi TTHvBCtsAOEbAWInMUlgDDTjHPEuAA7GIbFpDBBaZz V4QwTpMCHbINVndi9QKGOpQAEdViR2KXSeCUDjVXHpFKcmQPVlYPHdWXf4ESIcFYGrBQ2PZfJfBFXsOz OqFTLkCVLsBZEgel9PNXLiNNSbSaAeAYKeEYIsMITfQXqvSVEnBVOrQmH5VNMuFDGwEX0YXyIrVCRrJa Z6LDMlUHTlXZCqfl0OIFHgUGAcGew6KdJkYFPxQUEb OFzhELQcMTK1AST9AOLnZKEbDE9QEwFvPTViOzemSXHzCIZjFTGuzu2WZAMlKQAaYZYyYgEuJCEfGTLu HToxNMOkMVI5Rti7FYPkMKFoND9SOqPuHKPtHol8VXbdKBSyDDGlav8CEWWqGROtBJT4AzTxBUIkBHDe VJolIZFuGVDhNdR1RLHxGBNiZD9BXeHiRZQaBHR8Mn htUKWbMOBwgo4MKNMhBKR2NAHlJRYpERGuEURxNUqdRQCzJUExTZt5HOYaYIVvUM4AIlXcHRGnMQYgHQ YcIYCwMJPeji1AIBGwFYV5DvN2INMlOJZfMVOvZUgePCHaYALdRqQ4YJVrUTDsJL8NLnYgSLEwTXL1Cv nfCGXwCIDqwn0KAMAtWXQ4RupkQDDfKGDbSYJxVQwy IKWyHSP2RBR2CLGkEZSgNV2YGyFmLBAyEWY5GbRsIWWhIUKsyu7JQCKlXSQ6SXErDSTlCSPnIQXjNAmy DELsATS9RTqqLAOrBRPnYM5DIpDgXWZoAZEiXFZpFGKfCVIdmq7ZURSzGZC2Qlu1LQTuJISoOWLaIUxn LQQeFLF7LUQwWWIgBZJbNN8MKkUaDFHbTOdoVcRhML QgQUYhgn8HICZcJCO4MGI0ALJgHIFcJBEmLOpfRGEwLOT2LLv3FJInOOImMS6RRrQbBMMxUwXdOJgwSB WwFCEsul9OEWDcEQI5SZVdIpBcYUPbUATtBTmcGVFrSLmjKOy2KTHjZFIsWK8SErEfRGUtTMT6AgitVQ VdRWXrag3JKMEpBVZ6ZvQ5EqHjGQVzJPZmWJkcMVRu JDnpDovvYTCcVNQtJY7JEoSrRMPvXES9MyMlGAXvNSBsvq9OVHJhFLE2RzX0JxYwDAQkYIJvTRgeBSBx MPuyGhJ7LVEuBVVnHW4UVlNjKVDzZXA5CIIeNSDoEQBacg8IXTCmRBS0Dly5QBBxHQWpHPXjRAzfCFQs FRl7WLb0ZGCuFDWgWZ0UPiUiUPUbWZK3OPrpIERtNA Phad0CGSOkHGR5IhL2ZMZxXFYlSYNvQDtzAVAaRWu1KzM8FHRcODHbLE9EPhDrVRllJZVEIry0AOqwU5 h2CQI1NN4EE1Ivg0HuTbAkHGDSWRntUC3lfyGpDCLrCv1FG2zSPljnCLE2PsHeZNmaEsS5TrdtEbSqZ6 WiYkDdUYCvTxG1Qs4bBRQuOhE7HWF0VhBaWWHzAYYa MWM8BZZaVWYoCFVoVafnNmQaCJ7WIg9LKwZ2DNM2gAZbGa4AJBG4PEQDGhCbZV2HJAg= ID Date Data Source [id number] 08/26/2020 04:11:50 PM EDT [facility] Name Value Range Interpretation Code Description Data [place] rce(s) Supporting Document(s) History and Physical [facility] GSZIZo2jLfKDYqQc38/JTNemYYDqd3WaXMivVFq0QXtnKSGnR4ZpSIX9iI6eXDZ6QGdEXjPcQkVrXaSl lbm [file] AgICAgICAgICAgICAgICAgICAgICAgICAgICAgICAg ICAgICAgICAgICAgICAgICAgICAgICANCiAgICAgICAgICAgICAgICAgICAgICAgICAgICAgICAgICAg ICAgICAgICAgICAgICAgICAgICAgICAgICAgICAgICAgICAgICAgICAgICAgICAgICAgICAgICAgICAg ICAgICANCiAgICAgICAgICAgICAgICAgICAgICAgIC AgICAgICAgICAgICAgICAgICAgICAgICAgICAgICAgICAgICAgICAgICAgICAgICAgICAgICAgICAgIC AgICAgICAgICAgICAgICANCiAgICAgICAgICAgICAgICAgICAgICAgICAgICAgICAgICAgICAgICAgIC AgICAgICAgICAgICAgICAgICAgICAgICAgICAgICAg ICAgICAgICAgICAgICAgICAgICAgICAgICANCiAgICAgICAgICAgICAgICAgICAgICAgICAgICAgICAg ICAgICAgICAgICAgICAgICAgICAgICAgICAgICAgICAgICAgICAgICAgICAgICAgICAgICAgICAgICAg ICAgICAgICANCiAgICAgICAgICAgICAgICAgICAgIC AgICAgICAgICAgICAgICAgICAgICAgICAgICAgICAgICAgICAgICAgICAgICAgICAgICAgICAgICAgIC AgICAgICAgICAgICAgICAgICANCiAgICAgICAgICAgICAgICAgICAgICAgICAgICAgICAgICAgICAgIC AgICAgICAgICAgICAgICAgICAgICAgICAgICAgICAg ICAgICAgICAgICAgICAgICAgICAgICAgICAgICANCiAgICAgICAgICAgICAgICAgICAgICAgICAgICAg ICAgICAgICAgICAgICAgICAgICAgICAgICAgICAgICAgICAgICAgICAgICAgICAgICAgICAgICAgICAg ICAgICAgICAgICANCiAgICAgICAgICAgICAgICAgIC AgICAgICAgICAgICAgICAgICAgICAgICAgICAgICAgICAgICAgICAgICAgICAgICAgICAgICAgICAgIC AgICAgICAgICAgICAgICAgICAgICANCiAgICAgICAgICAgICAgICAgICAgICAgICAgICAgICAgICAgIC AgICAgICAgICAgICAgICAgICAgICAgICAgICAgICAg ICAgICAgICAgICAgICAgICAgICAgICAgICAgICAgICANCjw/dJEuY6ypdICbfbD9D7tcQx7QOi9WGE9n d7IjQQYoTLkqlbJyHzfTOzTlYJYsDacSSyf7RSqsTU9YjBIlQ4BvH0JwTMjaYW5RDEUrXYOdhJWcNIFj WDDuNmO5ZBZqUCbnHA3UcYLeIIwdSXJxCIVjOzMcKJ CnRFDlFCXfEJJhEQZOZSZvRGMdMxQsXZOeXOLeSTnrXAUHXY4UTtZuI7EquU50PQaZJh0+DQplbmRvYm cVNuTqSBLzo8McUMk0XM7EBQWvAobeb7UnNMXuJCZSQGjzAO9HHKQ1JXIjYRVkJq2BCXLoX695nbUnNJ 7GFy7WMpCzAN1zhz9VJISdZVLoSksSHsu8XPszVR0S qPJsOClIIzXhNzrwIZWqqAfbVRuyFX0tSY3QWKJ4IWyyKA7nVOMlTTYfHhW2WHMCIS8UCGKeYVWycLNs UKIbYEZDYT3GLXlxVOQ1ZHIvepCnhOWuTIbfOY6QPBSvkpYyWGRnAXAZLHl+Pr6KXW3ol0CqSRm6KzPd RZ7cxo5BHOqSWcNxM9J4uFUiG2N6COwbIl1CUIAeAN TrCIpzPDYYXMbuTB7NKN6itgA0ZL8IuPSfYRDrXQNovHCiZTx8Q53tcINgBMxsNU1FDAN+Luz+Pg0KIC AxSUIuEUXzEtDuADYHLoBaJ5DiZ4KYt8NzM6GmVB33yRkeyzJnACirFU5RJG6vBQVnPKODFU2FaZXwqT 0fnqJ7EEIgKZLMHmXuU15dwOGlRLElHHJxXPVmIa4O OAQeN6ClqgCluNbovjZlNTZsXGEJDX8RRFeiflCnlYVbwFrdCE33oQjoGU0ANy3ZLeFsTW3ehy3QnPBx Ks8HEIN6UT5VBXUhUDXrROQvYVR3JQQuWpMfONagRQKdITCsREJ8ATGnLWBtDE3MDkBjULAqFEB5REzh MUDxFGYdvx9RJROeJQI2IoWyGEHeUNKbGMEwYMzrQZ FlGOIqUWT6LWRvYHPsRE4QRnWdICDtNGJ6ZXXsLBJdCJZisq9RQAGhPQVvPJY6XYLoGLQwKAQjYDypAX YgYPL2ELo6CHQeEXNsID6EKtHpOWEhGTs8SWJkTUZsBSJgrd3XZMLhOSAbAFjlSXAiMYKpKBSuGReqVB MdHTAoZOQ6EUXoTMNjJL8GKtIwJXKkVHOeKKlwXHAt RTNfzv5OXMMiEBWgYUE5GVUnWAMpKIMwKTejIZFkMRQ0NRG7KLYrTYWcFU7DEcXyOPJfHAleJZXkTOWg GQWiqu6YNZNuQBBkHtLuJrEpUEChLESgFAkcCBYsWXSnQhNmYNGhCDGkXS3MMwZcCDCoQbJ1VeWhQOPe NOHjzy5SVCNeUTLbXvO1NbAsAWPeKEDdWWnaBOGoQY H4BID2IAFhKQNjZQ4VBnFjACDeXcljYrRnAJXzMUShra5KGWLcOKGwZQCrLtUvVVTdJZWwFWfjPWKkCY Z6ITL0UWWwQLKeYB4AWtUxEEOdTdx7ExwdZXNuTAMvcu1EDSZzVLRxRWs7ZSHhPNVgWXLjXRkqOHGlDB KsZCH0DDOcAZJuDG4VQfAsLTIyUxTnPVBvXHGqVYYn pv8DHXXoSTWsXFYxFXWqEYBiEBKdRAyyBNYyRETpNOR0AERuSFLuBX0NDyKoRDCiNuAuRrIdEASqDXJz zz0XSLQsSTUjYfI8XNLoCNXjRHIdPJmeTSPaEJDcKAA7LKAoQEVaAK1CTfKnIERdXdQ7JCivKNPlVMUr gb4AFCVlTGQqMnm5SYKxWQBtMSViASgyZSEtHPB5Uw mxQFEdOVFjCY9ZPaEmOGAlDGA8PONsXZIrUPDhyt7IQBDqCEM6VZsyBONsQKUuYESfXOdnGOSsAQQ8RP V7CTOzANTyZA2CMyFcUXHdMVYmZEEdUGVsSEFmeg2GYACbDIY7PnIbIXTcEFUnRFBuUWnmXLMcTMW8Lu TzKCXtUPGdMR6OVzEuVYSdGIj4YRBdTHDaCFZtes4S AKZpJQF8ZzQ4TMGqTTBeIJWpBJzfYEVhDFEtLgn5GQMuUPBeYI9KEdMmTYSvIDN4EYKfDIXwSOIiqq3V LFYcKFP1KdT3TGYaOVBvXIAiKOcqKYGeEPAuXda6YVFtKVPvVQ0CZaPmGTKxQOYeQiScVIKtEDQzia0T LHFgLFS6BDEqJJZjPCViIBVlHLjyUMUeJBQ0NYe8VJ CgQFXcLA5MMzAzAUTuWLXfHQQgARLhTPRlqp8LNKSrGFG0CgD9MhPmKPXdZKJjSUkhAARtWIN2JwIrMW TeGXQtRV2GAsArIGAkDSM0HmlrXWChTMMbul0GnCTeoFolji5VTNjKDz6EoDhiJOD2NNqtHt1fvBI3Ps DyQWOXSl6UntVbJFAhMSLXVVtrFWStPEL8XXPzRqIy MMraUpIcAgWkHAZpIDVsN4Z0Xfp9SBClWwD5EyJdSOK9QWLqPgUoLZKvCKF8WGH5McM1BRbzTLKzPGB+ EE7yUGo+Oc2Lz2JoqmE7loFqZIb5EvZsVK5VPZHXP5YYBi== ID Date Data Source [id number] 08/26/2020 02:49:08 PM EDT [facility] Name Value Range Interpretation Code Description Data [place] rce(s) Supporting Document(s) History and Physical [facility] WCXSZg4aCeJVRiYy99/ZGYgjZTAmq0IpQYfpICa3AIcsFLQpF3TmNEX2fB1zHFH2AKzOUhZhZmLnJlYa lbm [file] zznQKzaBvqJGJRIbLfQsP0AIshSKNHEe4J ID Date Data Source [id number] 08/25/2020 03:29:00 PM EDT [facility] Name Value Range Interpretation Code Description Data [place] rce(s) Supporting Document(s) SARS coronavirus 2 RNA [Presence] in Res piratory specimen by MARK with probe detection [facility]GAT[facility] ordered by [facility] a nd reported by [facility]. ID Date Data Source [id number] 08/17/2020 03:58:41 PM EDT [facility] Name Value Range Interpretation Code Description Data [place] rce(s) Supporting Document(s) Discharge Summary [facility] VCXQMs0rXbMOJrUf47/BZBcbHWVln3VmETioWUp3CQiqFVIrM5ZoATL6mE2fZIR2RVyUInLvAdPvDrVr lbm [file] ICAgICAgICAgICAgICAgICAgICAgICAgICAgICAgIC EsQFZlCDGmJJKoWHRmCWZkXWYvBQPhXXEoMPGxFUPeVSBtNKRiWC7OEUYkBVKeCKDkNHTrNAXjQCQwXZ AgICAgICAgICAgICAgICAgICAgICAgICAgICAgICAgICAgICAgICAgICAgICAgICAgICAgICAgICAgIC CmECCtWOFqZSCuNQSoELSfJJCcLK9WPNSgORXuCZLa ICAgICAgICAgICAgICAgICAgICAgICAgICAgICAgICAgICAgICAgICAgICAgICAgICAgICAgICAgICAg OPWgTXVgTHHcCHIdUSIrQVMkXSJpVEOwRJWkPCMpGF9QRKCeJKWyQIRsEPOoPKWjHFYxNHAdCJLqBOKa ICAgICAgICAgICAgICAgICAgICAgICAgICAgICAgIC YwFYPgZAKwETYqYORuBXFyPMOaPVEpVBEkCDSyUVGtJLPzOHIhRDFjXK0VVGYyEWDsVMGgPLIdSTEcPK AgICAgICAgICAgICAgICAgICAgICAgICAgICAgICAgICAgICAgICAgICAgICAgICAgICAgICAgICAgIC OsKMPrMNFrHOLoPLBrSESiXKSeQRWbKK0YWEZzUMIi ICAgICAgICAgICAgICAgICAgICAgICAgICAgICAgICAgICAgICAgICAgICAgICAgICAgICAgICAgICAg OBLtAMAjDVOmMOYwFYPqHQRoNVJsFLLxHCIyBQWvOEXwFU2QHMGvCMKwZNNvXJSuRNCaHOYlIPFmIBJe ICAgICAgICAgICAgICAgICAgICAgICAgICAgICAgIC IvQFAnLITmIJKrZQOkISBrNFOcFMLsPHDaQLUwXEEtFVRzXCRoLAJiHMOxFY7ZGWNhZXIcJHUnVMKvCE AgICAgICAgICAgICAgICAgICAgICAgICAgICAgICAgICAgICAgICAgICAgICAgICAgICAgICAgICAgIC BjOEGcOQLeKJJwRGJoFRNpMBSbMFJnSNShBE1FWUAc ICAgICAgICAgICAgICAgICAgICAgICAgICAgICAgICAgICAgICAgICAgICAgICAgICAgICAgICAgICAg JMRdNLStOPChUVXwCXCaYIPpMCViEFGtVGFbXYBxQZTlMFYjTW4OVQCuESPzZBTqBIKpXFYiRTAdQNMo ICAgICAgICAgICAgICAgICAgICAgICAgICAgICAgIC YpLOExMOTuBEIyTNIxLQHaYPWyKJIeNXDyISBtOZZbSMOoHLYoVXYfIESmTQHvJV0QDV77vLJbd8P5TX RrWO4gazd/Fk1GSFhcyhFywHAfCE1OWtZtTU0kbi8FEaXkSH6bfs2PZKhYPhFuH0N1aKIqVIAvHBEFPj LjP79mHZcbQj90TOzyMRZlOuFgIVn8Jr2DSaKmT7md CCPwJcJ2DNGpJtF5BLHdCeQ5LPWkCrMrTNZtGJYxXOPwLLNZEOU5AZUhLtNaIiTnBRJmKPfyWRCKPCIz PKAlGfVpYqAoQUWnWZ2BBSNsI887gjQqVMFRJm8+WQtbexPxDlpLPhF7WJKwk2ScVJe9HR5OUIJfPqkq g1DeLOuuUAMEABezJW3FXYL9RFQ6DRWwIw9KIONiB4 18uvUjXA5DFl6CZwMcEP7zkq6QKGbeRREmNurQMsz0NCreUJ5LfWDcGUwWrBHgaJLxI6YcJ6JsdQKiiE UkjTNPmEGbMKMeITWpidJuEmOrjEeupEvnWBZvKTEmVp4yPq8rTTJzHLVwMaIpRKEEAJ2ZXMDrQFMciC FzCLBcDFIARE6FHCtqYSF1TYStboKmzVFxXIwpAV8O YXJlbnQgNTcgMCBSDQo+Vg4NKG9st7PgSRv6MFOyRV1bos5DMUcQJdOvJ9L7qAHnN2F7ADbaCf6GEBPq JIRuSCEkLWZKYOxcOZ3COQ3rdsV0CN7GdFYrNMYvBWWflSDjESk1H36bzTPnYGbiLM2CVBP+Luz+Pg0K MSMgYYHaJOEiCkJqFSQAExHvS7CrX3ABy0OrN0UvDP 03zMmkgeVgULwaDT3NJP6vHJFmAPYLTQ1AyWRywT5ngkQ8DbAuJYQAXbMoS38zvEAoFXCkRLY7LGTsVv 7LFIKyQ5TaodSlgEmonjYqTEWaVQVSSI2LMFnssoZcwFNyuGzzLT21gOsnHG4FNd8JFhCbHU6dao2VzO WgIn9EXVE2TS4XILHzAWSqJKDsLCK1AFWwKaImANlu LXAtKRGsMDF3QSRbWPMiUW5GUrKqBMObInH1DnTyTWUuOXAbxi2TUWXfQKT5YMT3TCMmEPJuLLRyBEmy IXQgMLUqWFP0AEPiHLMgMT4RWbZxRNDbIFLaTYckVEBwUDRaft1QWKMiTKZuZFX2XXPsDTBrHQRpFJem DVOjMCE0IjVbZGQoRJOsBX0OUfIbONYnRAk9JZSwOO IsMVCakt1XYCDrWREnQhHwRUHyDVJtWFJpQZrlNJPgSDHtCbF7WNFwUVAaGM0BCqXbISQeLAH6JQctWC XeXYNhrr6CMATrNEAnPzc4BTJvLWUkACFyPLfnNKSsBPZkOXKxVZOzBKIaLH3QMyMeTJBpErOjEJvdDT FoUMLdpy3NOYFaLSUrUEU5BHJjXVKpCDYbTWaxPQSj FTR0Qmf2OALqYOFqMZ6SHiAxHQNhXan6WtVkHNToJTRrbz5YETOvOZEwGBDoGaUkBZGeLEMpNCjxLXNf TUJvUVAlBXJqHIDoYB9DHfWqWEYfNsSsAzpxXQXeLCNymz2GUBKrOCSkHYA4MTHoRPXxEKPcYQskNVGs PPW6EdVjYJLkNCOnZU3LOqUoTJIwPaE0KVPaGLNxLF Oucy6EPXDfLDVpClsdOrQjIGUpRBOpIIooVEVmIWP5Dtt5OKAhFTTiZA6NZsDfTLSwNne3PjGhUIQiJT Kclc4FESObTWEePUG1YsElZUVoKADmHXakWRKeSXU7ELG5KPMaWHDoER7JWuDdQRKaJrfwPYevYZKaBA Klpy3YKZJgVVUiYTAoQPJnWLMeUJTkUFrtTUXtARAk UXZ6LJHwXNBsZP9WSwFdXMBhNPX3VcCvSLDeNPHrhs5ARBNqMVW9VLj2VQAySWOiGBMkXFxiHDZjFOUn WWL4IVOzPALnPL0WXuQnMYYxBWNcZTRyYEPyGKAkky7UNCXwTWY4PuI4YPOtQLKmODPqXRduDLXrIEXz DTZ4EOWeGLCuCT5ZMbLyWIHcNYKgCXudTLPmPLRlux 3QSFUaZJT4AgF9ZLRoLQVgHSBcJVisAOKfCJN3TCEvXQTyPIIjJL7CCuKdBBSnHBOaHEFwWKOtLXAdha 1DXKMwQQH4VWR1UCSdHHPfLRNfFXvbDQVqWEQ7Cfw5AKRlCCPoJX7GGzTvZBGdHAQ6TMPwOKXyUQMahs 4BDAFqIJU7WJhvBLXeCMYeGUWsTKulBKKcKXTnXOY7 XABcPAYpAF2NCeWkYSPgZmRzQrIiRVRwJMMdrz8FDLBkVQQ1PCQ7YLKhFZOaWPZuYRtiVDWnPLCwJdY2 GTMoUDPlZA0NEkGpDPLgDcI6GvLvDCWoGKJajy3BUGNnSWA2Zai8YEQfJNZkRQSnCBhyZCYuEXIbYMH3 CWDgXUTfGF5GDlRsLVTsHxDbKLStECMcNPFoum8IVL WjAUC9DxX6ZPEpPVGjWDSiVVhdKRTbDSJmNEJmASOlQXKmCC0FBmZdHIEkFbDiKJgrIMRsUSKugu5FTL JbJLA2HFI9AQKoDLYfHQAlYPsaCHXsVUW3FfF5ZFVhYVUpTC3BStCkWTZiYvX3KylqKRNxNKMzcf9WjU BbyEungi3PEEkSAk1LoYclWTHjGFzjMy2amGW3YIVh JUZJEv2AveQpPTAfKEFSZLlpGRYoSEAeDKZoGDy2KQRrY9UmR9D0YrOwEWVfDOT4MCvgUMyuEeG1Z9Ko QZGcXcI6KhD0XKK9OiVsQTPsKCG7GYx2PPV8F9G+JV0zXXu+Hp4Gx0VofqZ2vwVqGEt2FgLrAL1EJNHK T0YNCg== ID Date Data Source [id number] 08/15/2020 07:55:53 PM EDT [facility] Name Value Range Interpretation Code Description Data [place] rce(s) Supporting Document(s) Color of Urine [facility] Clarity of Urine [facility] Specific gravity of Urine by Refractometry automated 1.010 1.003 -1.030 [facility] pH of Urine by Automated test strip 7.0 5.0-8.0 [facility] Protein [Mass/volume] in Urine by Automated test strip Neg [facility] Glucose [Mass/volume] in Urine by Automated test strip Neg [facility] Ketones [Mass/volume] in Urine by Automated test strip Neg [facility] Bilirubin.total [Presence] in Urine by Automated test strip Negative [facility] Hemoglobin [Presence] in Urine by Automated test strip Neg [facility] Leukocyte esterase [Presence] in Urine by Automated test strip Negative [facility] Nitrite [Presence] in Urine by Automated test strip [facility] Leukocytes [#/area] in Urine sediment by Automated count 0 -5 [facility] Erythrocytes [#/area] in Urine sediment by Automated count 0-3 [facility] ID Date Data Source [id number] 08/08/2020 03:50:12 PM EDT [facility] Name Value Range Interpretation Code Description Data [place] e(s) Supporting Document(s) History and Physical [facility] MGMNHs2pStBEXaAi71/OUGrsJTSle4JwJMiuKGc5YAfePFLsR3AhHHZ0nF1zFOX9BPsTHgXlJnDyGmZz lbm [file] AgICAgICAgICAgICAgICAgICAgICAgICAgICAgICAgICAgICAgICAgICAgICAgICAgICAgICAgICAgIC AgICAgICANCiAgICAgICAgICAgICAgICAgICAgICAg ICAgICAgICAgICAgICAgICAgICAgICAgICAgICAgICAgICAgICAgICAgICAgICAgICAgICAgICAgICAg ICAgICAgICAgICAgICAgICANCiAgICAgICAgICAgICAgICAgICAgICAgICAgICAgICAgICAgICAgICAg ICAgICAgICAgICAgICAgICAgICAgICAgICAgICAgIC AgICAgICAgICAgICAgICAgICAgICAgICAgICANCiAgICAgICAgICAgICAgICAgICAgICAgICAgICAgIC AgICAgICAgICAgICAgICAgICAgICAgICAgICAgICAgICAgICAgICAgICAgICAgICAgICAgICAgICAgIC AgICAgICAgICANCiAgICAgICAgICAgICAgICAgICAg ICAgICAgICAgICAgICAgICAgICAgICAgICAgICAgICAgICAgICAgICAgICAgICAgICAgICAgICAgICAg ICAgICAgICAgICAgICAgICAgICANCiAgICAgICAgICAgICAgICAgICAgICAgICAgICAgICAgICAgICAg ICAgICAgICAgICAgICAgICAgICAgICAgICAgICAgIC AgICAgICAgICAgICAgICAgICAgICAgICAgICAgICANCiAgICAgICAgICAgICAgICAgICAgICAgICAgIC AgICAgICAgICAgICAgICAgICAgICAgICAgICAgICAgICAgICAgICAgICAgICAgICAgICAgICAgICAgIC AgICAgICAgICAgICANCiAgICAgICAgICAgICAgICAg ICAgICAgICAgICAgICAgICAgICAgICAgICAgICAgICAgICAgICAgICAgICAgICAgICAgICAgICAgICAg ICAgICAgICAgICAgICAgICAgICAgICANCiAgICAgICAgICAgICAgICAgICAgICAgICAgICAgICAgICAg ICAgICAgICAgICAgICAgICAgICAgICAgICAgICAgIC AgICAgICAgICAgICAgICAgICAgICAgICAgICAgICAgICANCiAgICAgICAgICAgICAgICAgICAgICAgIC AgICAgICAgICAgICAgICAgICAgICAgICAgICAgICAgICAgICAgICAgICAgICAgICAgICAgICAgICAgIC AgICAgICAgICAgICAgICANCjw/qPCeW2rzlKKycfQ0 M1mvLa9TDs0IUO1zj8DlFUGyXZuhtuSeXepJGnIwBABvFngWFsz6NQuuTD9NyREsW4QfS9PlATegVQ1E PPJeVKMfyZGbNTRuFFNrEiO4SSZsHIzwJG0GmEHjFHihHCZcAJYjAjWpEOMjUCXeDUJgFPAaVWULSJ9U CdGuY5LexN18LVZABs1+DYusboXqVqdJCvR8FWCrs9 TtXFi9BC1TUSSnRntpk8BjEfYfPEOXSZtvZB5PPJV8YKL4CSCrEr7MBGAlM874bmLoYG0TVd4ZJmLwIT 4wpl3XTuYmLMCkDpfNMyy6VXirZV4EpLEgJJwMKiTaAxleYYVvoQENQNHoEBHueOiuSFYdOXJvKj9jHg 7hRKIhFAEbVzT9BVYGAY5NYLCoJDSyvASqHMIwJRHP MH7TUUtnWVX0TQCmdsQojWQkCVzlWW5NVOBlszRtKiNkKMBNLZd+Ew1KBC0wb8ShNDrlMyCqUP2ptw4I XIxNPeQlY5Q4pWAfX2I7LYxlJo8FOQRsHVQkFhToSCELLSngXC9FHK8boaJ0CP4KlZBsZXHzOUIraJUr JHj5Y49ymVMgCQepWO9DTRI+Luz+Vv0IBCGbGACiEE HbWpDeRXOLCtNvV3JcV9GNf1MeD6IwLX38qChkksPoWXbkUU7SIJ5bQDYiXEPFUA9GbIZpbC4jejPgOQ JnHSBETeJwZ93egRUoIAWrVBPyIQYnEu8LPWEoT3PnxbSlwXhevdStVSRjYHJPIS5IJHxzenYndUEmbJ teYI75wEqmAE5XPl8JLeZdSY3ysy9CxLSnUt7DXZEd Jb8AQRNxECUvUZBuOMC4ELDfJvRpOQggRLSuGFGoQPN1IUSbWRPzLX0KTrYzNEVuSiF7BEZzAIYsVEFn lz9NJKRgDTAmLwQ6TSSnIOWjQQEfJGzyTNGaZQRjSPX7QCUoMLXyJQ1JXxBsFOKjVJXyZjNuLHGyBMTo ne0ULFOpFLPrUjJ3OdEeZKFrFIJxLSquHLGgERY6KM S1AWOjASEdCN5ASrUgGOVkCFAnGoPdXVWwXKNvhd1BLQFtKWIbMZY9TLZbKCZtGKMgELekXQDwNTA6Hj tgITRjNEZoAV1JNsSmSEZhWKS5ASwwAWFfZVPsif5BSQMkWGZiXVbgEXOtGBQuRPVhGKiyMSCvCVZcDd E5RLGwYSZdXW3ORgOuBZIpOGT4LsTeWQQfARKsda5D RJXnETAkEhB3UYNvQCIhENBwDGotQWTkORN0GZI0BGQhWPKdVJ9LNcJiENKjCRAbOWTyUNMkKSIrya1L UXXlBWCoETX4CLOkWWWgVZKxOVebRGIfPQB8FhB6JUFnAWStRR1RTkXiQJLxDNH1MAVlWPZiHPKhpg8H EQEnCRHaZOvzSUCaPPGrHZMpJLdvKMKhVJK1ABX2OB EfWHSgHY9NKlXgUFKeVfx8VjsoKTAeJXGdkv0VIOLcYXBgNqZ2NtEpDBXmIJYlYAvhRGNrZIH4SMj8VI WsMQEhUA2NYwZsMWOqNhdbObNjFMExUIAjjf4DDFJsWTUeISl5LBErOWViYPWzGAhmFRKlMON7RUBhOW VcUOSrJL1HDwHnYPHmEhmnHDIgJIAkRYZqba1UQTLa DYYqLHN2JEWfZTWgEGRnRFahLPOvZNLzUKo7RKXhUESwYV5CKpJqTQVpCwI4HcXzYKIvGARani8HVTEl NJEdAOUfLZEwLIWaBSXgDZfjLLOrQUOuNSN2HGRpMUVsKP7YIcTyCGDdNdN4WwkoIDKaQZBpby0AVGXd IBAuWkh7NEMnNVQvJFXuNCp5waLwsVPlUZa1VU6DZ8 TpriApFkcDCu0Ph845QEW1UGJzWf8WQ1ciCc7mRWBhWPRJFh0DIMh1ENI1I8HlUBA8D9SaXeG3LLOvKS IrRHo4JOisTOQeFtm+BNenXsq3MOKfRCr6LJUuEIe5IKO3VCJiFwIbQJZ9DgYbEG2sVJRUVm8+DQpzdG DpyKuxWOXRRfLaLZN1QUwzBGKGKx3W ID Date Data Source [id number] 08/07/2020 04:12:43 PM EDT [facility] Name Value Range Interpretation Code Description Data [place] e(s) Supporting Document(s) History and Physical [facility] OYAJRi5mMlCYAcLw36/JIWppLRGkq7UvANthXUv1UTmkFFLbT3WbVHK3vX2wEML8KCaBNdUrWuXyYzDf lbm [file] 1Vp7PxxjE0uxHnKOxdHWOrET1HCEQQA5YMYz== ID Date Data Source [id number] 08/06/2020 12:10:00 PM EDT [facility] Name Value Range Interpretation Code Description Data [place] rce(s) Supporting Document(s) SARS coronavirus 2 RNA [Presence] in Res piratory specimen by MARK with probe detection NEGATIVE [facility] This lab was ordered by [facility] a nd reported by [facility]. ID Date Data Source [id number] 07/28/2020 01:05:00 PM EDT [facility] Name Value Range Interpretation Code Description Data [place] rce(s) Supporting Document(s) SARS coronavirus 2 RNA [Presence] in Res piratory specimen by MARK with probe detection NEGATIVE [facility] This lab was ordered by [facility] a nd reported by [facility]. ID Date Data Source [id number] 06/28/2020 07:41:00 PM EDT [facility] 1 OrderSheet [facility] Emergency Department [address] [place] [address] Phone #: [phone]- [phone] 06/28/2020 19:40 Patient: BRUNA LEE Sex: F [...] rce(s) Supporting Document(s) ID Date Data Source [id number] 06/28/2020 07:41:00 PM EDT [facility] 1 Medication Reconciliation Report [facility] Emergency Department [address] [place] [address] Phone #: ext- [phone] 06/28/2020 19:40 Patient: [...] Medication information:Not obtained. 2 Medication Reconciliation Report [facility] Emergency Department [address] [place] [address] Phone #: ext- [phone] 06/28/2020 19:40 Patient: [...] rce(s) Supporting Document(s) ID Date Data Source [id number] 06/28/2020 07:41:00 PM EDT [facility] 1 Medication Administration Record [facility] Emergency Department [address] [place] [address] Phone #: ext- [phone] 06/28/2020 19:40 Patient: [...] rce(s) Supporting Document(s) ID Date Data Source [id number] 06/28/2020 07:41:00 PM EDT [facility] 1 General Instructions [facility] Emergency Department [address] [place] [address] Phone #: ext- [phone] 06/28/2020 19:40 Patient: [...] patient. ADDITIONAL INFORMATIONDrug Abuse 2 General Instructions [facility] Emergency Department [address] [place] [address] Phone #: ext- [phone] 06/28/2020 19:40 Patient: BRUNA LEE Sex: F [...] job or your family Arrest, conviction, and assisted sentence for possession of an illegal substance [...] to continue abusing drugs. 3 General Instructions [facility] Emergency Department [address] [place] [address] Phone #: ext- [phone] 06/28/2020 19:40 -- Patient: BRUNA LEE Sex: F : 1985 Age: 35y Eat a balanced diet and start a regular exercise program.Follow-up careFollow up with your healthcare provider, or as advised. Contact one of the resources below for help: National [place] on Alcoholism and Drug Dependence, www.ncadd.org, Narcotics Anonymous, www.na.org, National Alcohol and Substance Abuse Information Center, www.TreeRing.[place], . This center can refer you to a treatment program.Call [phone] [phone] if any of the following occur: Seizure [...] at an injection site 4 General Instructions [facility] Emergency Department [address] [place] [address] Phone #: ext- [phone] 06/28/2020 19:40 Patient: BRUNA LEE Sex: F : 1985 Age: 35y [id number] [employer] [place] [address]. All rights reserved. This information is not [...] yourself out of the 5 General Instructions [facility] Emergency Department [address] [place] [address] Phone #: ext- [phone] 06/28/2020 19:40 Patient: BRUNA LEE Sex: F [...] You have trouble speaking Your vision changes [phone] [employer]. [address] [place] [address], [place] [address]. All rights reserved. This information is not intended as asubstitute for professional medical care. Always follow your healthcare professional's instructions. You have been given the following additional information: Drug Abuse Headache, Tension 6 General Instructions [facility] Emergency Department [address] [place] [address] Phone #: ext- [phone] 06/28/2020 19:40 ------- Patient: BRUNA LEE Sex: F : 1985 Age: 35y(Electronically signed by RASHID Godwin 06/29/2020 20:04) Name Value Range Interpretation Code Description Data [place] rce(s) Supporting Document(s) ID Date Data Source [id number] 06/28/2020 07:41:00 PM EDT [facility] 1 Clinical Report - Nurses [facility] Emergency Department [address] [place] [address] Phone #: mrb- [phone] 06/28/2020 19:40 Patient: BRUNA LEE Sex: F [...] treated for.Pt states she was seen at [facility] and left AMA because she was not being seen. Pt is able to speak in fullclear sentences, in NAD at this time sating at 96% on RA. 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 [...] Chand R.N. 2 Clinical Report - Nurses [facility] Emergency Department [address] [place] [address] Phone #: ext- [phone] 06/28/2020 19:40 Patient: [...] no deficiencies. 3 Clinical Report - Nurses [facility] Emergency Department [address] [place] [address] Phone #: ext- [phone] 06/28/2020 19:40 Patient: [...] Mariana Trammell 4 Clinical Report - Nurses [facility] Emergency Department [address] [place] [address] Phone #: ext- [phone] 06/28/2020 19:40 Patient: [...] 100%. --20:46 06/28/20 Mariana Trammell.DISPOSITION / DISCHARGE [place] Coma Scale: 15- eyes open- spontaneous (4); best verbal response- oriented (5); best motor response- obeys commands (6). Departure time: 21:06/28/2020. Condition at departure: improved. No learning barriers present. Discharge instructions provided and reviewed with the patient. Reviewed referral to family practice for followup. Patient verbalized understanding. Written instructions not provided in [place]. The patient was discharged home. She left [...] rce(s) Supporting Document(s) ID Date Data Source [id number] 06/28/2020 07:41:00 PM EDT [facility] 1 Clinical Report - Physicians/Mid Levels [facility] Emergency Department [address] [place] [address] Phone #: ext- [phone] 06/28/2020 19:40 Patient: BRUNA LEE Sex: F [...] for. Pt states she was seen at [facility] and left AMA because she was not [...] Abuse.Schizophrenia.Pharyngitis.Polysubstance abuse. 2 Clinical Report - Physicians/Mid [facility] Emergency Department [address] [place] [address] Phone #: tua- [phone] 06/28/2020 19:40 Patient: BRUNA LEE Sex: F [...] ROM. 3 Clinical Report - Physicians/Mid Levels [facility] Emergency Department [address] [place] [address] Phone #: ext- [phone] 06/28/2020 19:40 Patient: [...] referral: 4 Clinical Report - Physicians/Mid Levels [facility] Emergency Department [address] [place] [address] Phone #: ext- [phone] 06/28/2020 19:40 Patient: BRUNA LEE Sex: F : 1985 Age: 35y e valuation and treatment. Summary of care provided to patient. Understanding of the discharge instructions verbalized by patient.(Electronically signed by RASHID Godwin 06/29/2020 20:04) Name Value Range Interpretation Code Description Data [place] rce(s) Supporting Document(s) ID Date Data Source [id number] 06/17/2020 08:41:00 [place] [address] RESPIRATORY CARE REPORT ==== ---------NAME------- NUMBER SEX AGE ADMIT DISC. XRAY# F/C TYPECOME BRUNA [id number] F 34 06/16/20 06/16/20 [id number] X6B E/R DATE OF : 1985 M/R# [id number] #: [id number] TR-03 LOCATION: EMERGENCY DEPT EKG [id number] COMP LETE:06/17/20 02:50 VMT 61452 PHYSICIAN: HIEU CLIFFORD KARAN Name Value Range Interpretation Code Description Data [place] rce(s) Supporting Document(s) ID Date Data Source [id number] 06/17/2020 10:02:00 AM EDT [facility] [address] [place] [address] PHONE: [phone] FAX: [phone] Name .................. : JESUS MOSLEY Acct Number.................. : [id number] ROOM. ................. : TR-03 Number ................... : [id number] Stay type ............. : E/R Discharge Date......... ... : 06/16/20 Admit Date ......... : 06/16/20 Admit Phys .................... : HIEU JENSEN Date of ....... : 1985 Family Phys ................... : NON STAFF Phone .................. : [phone] Age ................................ : 34 Film# .................. .:[id number] Sex ................................. : F Unsigned transcriptions are preliminary reports and do not represent a medical or legal document CHEST PORTABLE [id number] COMPLETE:06/16/20 19:31 KHAI 9302 Reason( s): Chest Pain PORTABLE CHEST X-RAY: INDICATION: Chest pain. FINDINGS: The cardiac and mediastinal silhouettes appear normal and the lungs are clear. The bones and soft tissues are normal. The upper abdomen is unremarkable. IMPRESSION: No acute disease identifiable. Electronically Reviewed and Signed By Dakota Fernández M.D. , 06/17/20 10:03, [facility] Transcribe Initials: DZ , Transcribe Date: 06/16/20 21:15, Dictation Date: Copy for: REJI Bundy via fax Copy for: EMERGENCY DEPT via modeSurreal Ink Copy for: 710 MED REC DISCHARGED Page 1 of 1 Name Value Range Interpretation Code Description Data [place] rce(s) Supporting Document(s) ID Date Data Source [id number] 06/16/2020 04:22:00 PM EDT [facility] 1 OrderSheet [facility] Emergency Department [address] [place] [address] Phone #: ext- [phone] 06/16/2020 16:20 Patient: [...] Description Priority Entered Acknowledged Initialed 2 OrderSheet [facility] Emergency Department [address] [place] [address] Phone #: ext- [phone] 06/16/2020 16:20 --------- [...] rce(s) Supporting Document(s) ID Date Data Source [id number] 06/16/2020 04:22:00 PM EDT [facility] 1 Medication Reconciliation Report [facility] Emergency Department [address] [place] [address] Phone #: ext- [phone] 06/16/2020 16:20 Patient: [...] to the patient:None. 2 Medication Reconciliation Report [facility] Emergency Department [address] [place] [address] Phone #: ext- [phone] 06/16/2020 16:20 Patient: BRUNA LEE Sex: F : 1985 Age: 34y Name Value Range Interpretation Code Description Data [facility](s) Supporting Document(s) ID Date Data Source [id number] 06/16/2020 04:22:00 PM EDT [place] [address] Medication Administration Record [facility] Emergency Department [address] [place] [address] Phone #: ext- [phone] 06/16/2020 16:20 Patient: BRUNA LEE Sex: F : 1985 Age: 34yWeight: 70.7 kgHeight/Length: 60 inBMI: 30.4ALLERGIES: Penicillins, Sulfa AntibioticsDate/Time Medication Administered Medication Ordered Name Value Range Interpretation Code Description Data [place] rce(s) Supporting Document(s) ID Date Data Source [id number] 06/16/2020 04:22:00 PM EDT [facility] 1 General Instructions [facility] Emergency Department [address] [place] [address] Phone #: ext- [phone] 06/16/2020 16:20 Patient: [...] with patientand understanding verbalized. 2 General Instructions [facility] Emergency Department [address] [place] [address] Phone #: ext- [phone] 06/16/2020 16:20 Patient: [...] may also be needed. 3 General Instructions [facility] Emergency Department [address] [place] [address] Phone #: ext- [phone] 06/16/2020 16:20 Patient: BRUNA LEE Sex: F : 1985 [facility] provider may prescribe medicine for [...] begin to improve in thenext 24 hours.Call [phone] if any of these occur: Trouble breathing Confusion 4 General Instructions [facility] Emergency Department [address] [place] [address] Phone #: ext- [phone] 06/16/2020 16:20 Patient: BRUNA LEE Sex: F [...] water and you are getting dehydrated [employer]. [address] [place] [address]. All rights reserved. This information is not intended as asubstitute for professional medical care. Always follow your healthcare professional's instructions.[place] DietYour healthcare provider may recommend a bland diet if you have an upset stomach. It consists offoods that are mild and easy to digest. It is better to eat small frequent meals rather than 3 largemeals a day. 5 General Instructions [facility] Emergency Department [address] [place] [address] Phone #: ext- [phone] 06/16/2020 16:20 Patient: [...] of fruit, dried fruitMeats 6 General Instructions [facility] Emergency Department [address] [place] [address] Phone #: ext- [phone] 06/16/2020 16:20 Patient: [...] extracts, kristopher, cinnamon, thyme, mace, allspice, paprikaAvoid: [place] powder, cloves, pepper, seed spices, garlic, gravy pickles, highly seasoned saladdressings [phone] [employer] [place] [address]. All rights reserved. This information is not intended as asubstitute for professional medical care. Always follow your healthcare professional's instructions.Clear Liquid Diet 7 General Instructions [facility] Emergency Department [address] [place] [address] Phone #: vie- [phone] 06/16/2020 16:20 Patient: BRUNA LEE Sex: F [...] grocery stores. You don't need aprescription. [employer] [address] [place] [address]. All rights reserved. This information is not intended as asubstitute for professional medical care. Always follow your healthcare professional's instructions. You have been given the following additional information: Abdominal Pain, Unknown Cause, (Female) Diet, [place] (Adult) Clear Liquid Diet 8 General Instructions [facility] Emergency Department [address] [place] [address] Phone #: ext- [phone] 06/16/2020 16:20 Patient: BRUNA LEE Sex: F : 1985 Age: 34yNo strenuous activity until better. Rest at home for one days.(Electronically signed by RASHID Sanchez 06/16/2020 21:17) Name Value Range Interpretation Code Description Data [place] rce(s) Supporting Document(s) ID Date Data Source [id number] 06/16/2020 04:22:00 PM EDT [facility] 1 Clinical Report - Nurses [facility] Emergency Department [address] [place] [address] Phone #: ext- [phone] 06/16/2020 16:20 Patient: BRUNA LEE Sex: F : 1985 Age: 34yTRIAGEArrived by EMS. Historian: patient. Unaccompanied. ( went to [facility] today for feeling like she had beenpoisoned, she thinks her mother and sister poisoned, feels like she is going down hill with her health, shestates she is suing [facility] because they are not listening to her, [facility]).Acuity: LEVEL 4.Chief Complaint: BIZARRE BEHAVIOR.Alert.Onset. 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 2 Clinical Report - Nurses [facility] Emergency Department [address] [place] [address] Phone #: ext- [phone] 06/16/2020 16:20 [...] Maldonado R.N. 3 Clinical Report - Nurses [facility] Emergency Department [address] [place] [address] Phone #: ext- [phone] 06/16/2020 16:20 [id number] Sex: F : 1985 Age: 34y Interventions [...] Moreau, RN 4 Clinical Report - Nurses [facility] Emergency Department [address] [place] [address] Phone #: ext- [phone] 06/16/2020 16:20 Patient: [...] Patient verbalized understanding. Written instructions provided in [place]. The patient was discharged by the physician assistant city attorney. She was discharged home. She left via private vehicle and taxi. --20:18 06/16/20 Jovan Maldonado R.N. 20:00 06/16/20. BP: 121/50. MAP: 73. HR: 83. RR: 16. O2 saturation: 96%. Temp: 97.8 F. Pain level now: 3/10. --20:18 06/16/20 Jovan Maldonado R.N.Locked/Released at 06/17/2020 03:08 by Jovan Maldonado R.N. Name Value Range Interpretation Code Description Data [place] rce(s) Supporting Document(s) ID Date Data Source [id number] 06/16/2020 04:22:00 PM EDT [facility] 1 Clinical Report - Physicians/Mid Levels [facility] Emergency Department [address] [place] [address] Phone #: ext- [phone] 06/16/2020 16:20 Patient: [...] by a health care provider (went to [facility] today twice, escorted off property twice per [...] Schizophrenia. Pharyngitis. 2 Clinical Report - Physicians/Mid [facility] Emergency Department [address] [place] [address] Phone #: ext- [phone] 06/16/2020 16:20 Patient: [...] Reflexes normal. 3 Clinical Report - Physicians/Mid [facility] Emergency Department [address] [place] [address] Phone #: ext- [phone] 06/16/2020 16:20 Patient: [...] Weeks post LMP 5.4-708 mU/mL 3-4 Weeks 217-69703 mU/mL 5-6 Weeks 4059-392850 mU/mL 7-8 Weeks 91724-242380 mU/mL 9-10 Weeks 88543-09055 mU/mL 12-14 Weeks 97177-72384 mU/mL 15-16 Weeks 8240-07313 mU/mL 17-18 Weeks CBC w Diff: (JENN: [...] PANEL 4 Clinical Report - Physicians/Mid Levels [facility] Emergency Department [address] [place] [address] Phone #: ext- [phone] 06/16/2020 16:20 Patient: [...] Male GFR Interprentation 20-49 yrs >60 mL/min Tifldh09-82 yrs >56 mL/min Normal 60-69 yrs >49 mL/min Normal 70-79yrs>42 mL/min Normal 80 and above >35 mL/min Normal Female GFRInterpretation 20-39 yrs >60 mL/min Normal 40-49 yrs >58 mL/minNormal 50-59 yrs >51 mL/min Normal 60-69 yrs >45 mL/min Gsqknw91-16 yrs >39 mL/min Normal 80 and above >32 mL/min NormalETOH: (JENN: 06/16/2020 18:16) ( [facility]16[facility] 19:11[facility] Final results Test Result Flag Units (Reference) ALCOHOL <10.0 MG/DL ALCOHOL % 0.01 % (0.00 - 0.01) *FOR MEDICAL PURPOSES ONLY*Lactic Acid: (JENN: 06/16/2020 18:16) ( [facility] 06/16/2020 18:40) Final results Test Result Flag Units (Reference) LACTIC ACID 2.1 MMOL/L (0.2 - 2.2)Lipase: (JENN: 06/16/2020 18:16) ( [facility] 06/16/2020 19:11) Final results Test Result Flag Units (Reference) LIPASE 13 U/L (13 - 60)Magnesium: (JENN: 06/16/2020 18:16) ( [facility] 06/16/2020 19:11) Final results Test Result Flag Units (Reference) MAGNESIUM 2.2 MG/DL (1.7 - 2.2)Acetaminophen Level: (JENN: 06/16/2020 18:16) ( [facility] 06/16/2020 19:11) Final results Test Result Flag Units (Reference) ACETAMINOPHEN 8.7 UG/ML (0.0 - 30.0)Salicylate Level: (JENN: 06/16/2020 18:16) ( [facility] 06/16/2020 19:25) Final results Test Result Flag Units (Reference) 5 Clinical Report - Physicians/Mid Levels [facility] Emergency Department [address] [place] [address] Phone #: ext- [phone] 06/16/2020 16:20 Patient: [...] Thrombosis, Pulmonary Embolus, Tissue heart valves, Acute CO Atrial Fibrillation, Valvular heart disease and recurrent Systemic Embolism. -International Normalized Ratio (INR): 2.5 - 3.5 for Mechanical Prosthetic valve. Troponin-T: (JENN: 06/16/2020 18:16) ( [facility] 06/16/2020 19:25) Final results Test Result Flag Units (Reference) TROPONIN T <0.01 NG/ML (0.00 - 0.10) TROPONIN T0.1 ng/ml Recommended as the clinical threshold value forTroponin T. Urinalysis: (JENN: 06/16/2020 18:46) ( [facility] 06/16/2020 19:24) Final results Test Result Flag [...] Venous Blood Gas: (JENN: 06/16/2020 18:16) ( [facility] 06/16/2020 18:40) Final [...] with grossly normal labs, normal activity on awake overnight monitor, othervitals WNL throughout ED course, resting comfortably in ED exam rm bed throughout ED course, no 6 Clinical Report - Physicians/Mid Levels [facility] Emergency Department [address] [place] [address] Phone #: ext- [phone] 06/16/2020 16:20 Patient: BRUNA LEE Sex: F [...] appointment. 7 Clinical Report - Physicians/Mid Levels [facility] Emergency Department [address] [place] [address] Phone #: ext- [phone] 06/16/2020 16:20 Patient: [...] rce(s) Supporting Document(s) ID Date Data Source [id number] 06/16/2020 07:31:00 PM EDT [facility] Name Value Range Interpretation Code Description Data [facility] [facility] rce(s) Supporting Document(s) DRUG SCREEN URINE [facility] URINE DRUG SCREEN Amphetamine [Presence] in Urine by Screen method PRESUMP POS ZAYNAB L: NEGATIVE [facility] BARBITURATES NEGATIVE NORMAL: NEGATIVE [facility] BENZO NEGATIVE NORMAL: NEGATIVE [facility] COCAINE PRESUMP POS NORMAL: NEGATIVE A [facility] Tetrahydrocannabinol [Presence] in Urine NEGATIVE NORMAL: NEGATIVE [facility] OPIATES NEGATIVE NORMAL: NEGATIVE [facility] Phencyclidine [Presence] in Urine by Screen method NEGATIVE NOR MAL: NEGATIVE [facility] \\BLDo\\URINE DRUG SCR EEN INTERPRETATION\\BLDx\\ THE CUTOFFF LEVELS FOR DETECTION ARE FOLLOWS: AMPHETAMINES 1000 ng/ml BARBITUARATES 200 ng/ml BENZODIAZEPINES 100 ng/ml THC 50 ng/ml PHENCYCLIDINE 25 ng/ml OPIATES 300 ng/ml COCAINE 300 ng/ml ALL POSITIVES ARE CONSIDERED PRESUMPTIVE POSITIVE CONFIRMATION WILL BE PERFORMED AT PHYSICIAN REQUEST. ID Date Data Source [id number] 06/16/2020 07:24:00 PM EDT [facility] Name Value Range Interpretation Code Description Data [place] rce(s) Supporting Document(s) URINALYSIS [facility] james URINALYSIS SOURCE Clean Catch [facility] ital COLOR Yellow NORMAL: Yellow [facility] ospital CLARITY Clear NORMAL: Clear [facility] spital Specific gravity of Urine by Test strip 1.010 1.001 - 1.030 [facility] pH 7 5 - 9 [facility] Gl[facility] [Mass/volume] in Urine by Test strip NORM NORMAL: Negat [facility] Bilirubin.total [Presence] in Urine by Test strip NEG NORMAL: Negative [facility] Ketones [Presence] in Urine by Test strip NEG NORMAL: Negative [facility] Protein [Mass/volume] in Urine by Test strip NEG NORMAL: Negat [facility] Nitrite [Presence] in Urine by Test strip NEG NORMAL: Negative [facility] BLOOD NEG NORMAL: Negative [facility] Leukocyte esterase [Presence] in Urine by Test strip NEG ZAYNAB L: Negative [facility] Urobilinogen [Mass/volume] in Urine by Test strip NOR less kenna n 1.0 mg/dL [facility] MICROSCOPIC Not Indicate [facility] ospital ID Date Data Source [id number] 06/16/2020 07:25:00 PM EDT [facility] Name Value Range Interpretation Code Description Data [place] rce(s) Supporting Document(s) Prothrombin time (PT) 12.5 SECONDS 11.0 - 15.5 [facility] INR in Platelet poor plasma by Coagulation assay 0.89 0.93 - 1. 23 L [facility] aPTT in Blood by Coagulation assay 39.8 SECONDS 24.8 - 36.7 H [facility] \\BLDo\\INR INTERPRETATION\\BLDx\\ Therapeutic range for Coumadin and related oral anticoagulants. - International Normalized Ratio (INR): 2.0 - 3.0 for Venous Thrombosis, Pulmonary Embolus, Tissue heart valves, Acute CO Atrial Fibrillation, Valvular heart disease and recurrent Systemic Embolism. - International Normalized Ratio (INR): 2.5 - 3.5 for Mechanical Prosthetic valve. ID Date Data Source [id number] 06/16/2020 07:25:00 PM EDT [facility] Name Value Range Interpretation Code Description Data [place] rce(s) Supporting Document(s) Choriogonadotropin.intact [Units/volume] in Serum or Plasma <0.5 mIU/ mL [facility] Interpr etation: Less than 5 mU/mL: Negative 6-10 mU/mL: Borderline (suggest repeat in 48 hours) >10: Positive Approx HCG range (mU/mL) Weeks post LMP 5.4-708 mU/mL 3-4 Weeks 217-34323 mU/mL 5-6 Weeks 4059-225410 mU/mL 7-8 Weeks 30124-206315 mU/mL 9-10 Weeks 66262-36825 mU/mL 12-14 Weeks 71331-59576 mU/mL 15-16 Weeks 8240- 27628 mU/mL 17-18 Weeks ID Date Data Source [id number] 06/16/2020 07:25:00 PM EDT [facility] Name Value Range Interpretation Code Description Data [place] rce(s) Supporting Document(s) TROPONIN T <0.01 NG/ML 0.00 - 0.10 [facility] ospital TROPONIN T0.1 ng/ml Recommended as the c linical threshold value forTroponin T. ID Date Data Source [id number] 06/16/2020 07:25:00 PM EDT [facility] Name Value Range Interpretation Code Description Data [place] rce(s) Supporting Document(s) SALICYLATE <0.3 mg/dL 2.0 - 20.0 L [facility] ID Date Data Source [id number] 06/16/2020 07:25:00 PM EDT [facility] Name Value Range Interpretation Code Description Data [place] rce(s) Supporting Document(s) COMPREHENSIVE METABOLIC PANEL [facility] COMPREHENSIVE METABOLIC PANEL Sodium [Moles/volume] in Serum or Plasma 139 mEq/L 134 - 153 [facility] Potassium [Moles/volume] in Serum or Plasma 4.3 mEq/L 3.6 - 5.0 [facility] Chloride [Moles/volume] in Serum or Plasma 100 mEq/L 98 - 107 [facility] Carbon dioxide, total [Moles/volume] in Serum or Plasma 26 MEQ/L 22 - 30 [facility] Glucose [Mass/volume] in Serum or Plasma 76 MG/DL 70 - 99 [facility] BUN 9 MG/DL 7 - 21 [facility] Creatinine [Mass/volume] in Serum or Plasma 0.5 MG/DL 0.7 - 1.5 L [facility] BUN/CREAT 18 8 - 27 [facility] Protein [Mass/volume] in Serum or Plasma 8.0 G/DL 6.3 - 8.2 [facility] Albumin [Mass/volume] in Serum or Plasma 5.0 G/DL 3.9 - 5.0 [facility] Globulin [Mass/volume] in Serum by calculation 3.0 GM/DL 2.4 - 3.2 [facility] A/G RATIO 1.7 0.8 - 2.0 [facility] Calcium [Mass/volume] in Serum or Plasma 10.6 MG/DL 8.4 - 10.2 H [facility] Bilirubin.total [Mass/volume] in Serum or Plasma <0.7 MG/DL 0.2 - 1.3 [facility] Alkaline phosphatase [Enzymatic activity/volume] in Serum or Plasma 86 U/L 38 - 126 [facility] Aspartate aminotransferase [Enzymatic activity/volume] in Serum or Plasma 30 U/L 5 - 40 [facility] Alanine aminotransferase [Enzymatic activity/volume] in Seru m or Plasma 25 U/L 7 - 56 [facility] Anion gap 3 in Serum or Plasma 13.0 mmol/L 8.0 - 16.0 [facility] AGE 34 yrs [facility] NON-AA GFR >60 mL/min [facility] ital AFR AMER GFR >60 mL/min [place] [...] >32 mL/min Normal ID Date Data Source [id number] 06/16/2020 07:11:00 PM EDT [facility] Name Value Range Interpretation Code Description Data [place] rce(s) Supporting Document(s) Acetaminophen [Presence] in Urine 8.7 UG/ML 0.0 - 30.0 [facility] ID Date Data Source [id number] 06/16/2020 07:11:00 PM EDT [facility] Name Value Range Interpretation Code Description Data [place] rce(s) Supporting Document(s) Magnesium [Mass/volume] in Serum or Plasma 2.2 MG/DL 1.7 - 2.2 [facility] ID Date Data Source [id number] 06/16/2020 07:11:00 PM T [facility] Name Value Range Interpretation Code Description Data [place] rce(s) Supporting Document(s) Lipase [Enzymatic activity/volume] in Serum or Plasma 13 U/L 13 - 60 [facility] ID Date Data Source [id number] 06/16/2020 07:11:00 PM T [facility] Name Value Range Interpretation Code Description Data [place] rce(s) Supporting Document(s) Ethanol [Moles/volume] in Blood <10.0 MG/DL [facility] ALCOHOL % 0.01 % 0.00 - 0.01 [facility] ital *FOR MEDICAL PURPOSES ONLY * ID Date Data Source [id number] 06/16/2020 07:06:00 PM EDT [facility] Name Value Range Interpretation Code Description Data [place] rce(s) Supporting Document(s) CBC W/AUTOMATED DIFF [facility] COMPLETE BLOOD COUNT Leukocytes [#/volume] in Blood by Automated count 6.8 10^3/uL 4.2 - 1 1.0 [facility] Erythrocytes [#/volume] in Blood by Automated count 4.84 10^6/uL 4. 20 - 5.40 [facility] Hemoglobin [Mass/volume] in Blood 14.3 g/dL 12.0 - 16.0 [facility] Hematocrit [Volume Fraction] of Blood by Automated count 43.3 % 3 7.0 - 47.0 [facility] Erythrocyte mean corpuscular volume [Entitic volume] by Auto mated count 89.5 fL 81.0 - 101 [facility] Erythrocyte mean corpuscular hemoglobin [Entitic mass] by Automated count 29.5 pg 27.0 - 34.0 [facility] Erythrocyte mean corpuscular hemoglobin concentration [Mass/volume] by Automated count 33.0 g/dL 31.0 - 36.0 [facility] Erythrocyte distribution width [Ratio] by Automated count 13.2 % 11.5 - 14.5 [facility] Platelets [#/volume] in Blood by Automated count 340 10^3/uL 150 - 45 0 [facility] Platelet mean volume [Entitic volume] in Blood by Automated count 9.9 fL 7.4 - 10.4 [facility] Neutrophils/100 leukocytes in Blood by Automated count 60.0 % 37. 0 - 80.0 [facility] Lymphocytes/100 leukocytes in Blood by Manual count 29.5 % 25.0 - 40.0 [facility] Monocytes/100 leukocytes in Blood by Automated count 7.4 % 3.0 - 8.0 [facility] Eosinophils/100 leukocytes in Blood by Automated count 2.2 % 0.0 - 7.0 [facility] Basophils/100 leukocytes in Blood by Automated count 0.6 % 0.0 - 2.5 [facility] %IG 0.3 % 0.0 - 0.0 H [facility] al %NRBC 0.0 % 0.0 - 0.0 [facility] al Neutrophils [#/volume] in Blood by Automated count 4.05 10^3/uL 2.00 - 6.90 [facility] Lymphocytes [#/volume] in Blood by Automated count 1.99 10^3/uL 0.60 - 3.40 [facility] Monocytes [#/volume] in Blood by Automated count 0.50 10^3/uL 0.00 - 0.90 [facility] Eosinophils [#/volume] in Blood by Automated count 0.15 10^3/uL 0.00 - 0.70 [facility] Basophils [#/volume] in Blood by Automated count 0.04 10^3/uL 0.00 - 0.20 [facility] #IG 0.02 10^3/uL 0.00 - 0.10 [facility] #NRBC 0.00 10^3/uL 0.00 - 0.00 [facility] ospital MANUAL DIFF NOT INDICATED [facility] RBC MORPH NOT INDICATED [facility] spital ID Date Data Source [id number] 06/16/2020 06:40:00 PM EDT [facility] Name Value Range Interpretation Code Description Data [place] rce(s) Supporting Document(s) pH of Serum or Plasma 7.37 7.32 - 7.43 [facility] pCO2 V 46.9 mm/HG 38.0 - 51.0 [facility] pO2 V 55.8 mm/HG 30.0 - 55.0 H [facility] Bicarbonate [Moles/volume] in Venous blood 26.5 meq/L 22.0 - 29.0 [facility] TCO2 V 28.0 meq/L 22.0 - 29.0 [facility] Base excess in Blood by calculation 0.7 -2.0 - 2.0 [facility] O2 SAT V 87.7 % 40.0 - 85.0 H [facility] ital ID Date Data Source [id number] 06/16/2020 06:40:00 PM EDT [facility] Name Value Range Interpretation Code Description Data [place] rce(s) Supporting Document(s) Lactate [Moles/volume] in Serum or Plasma 2.1 MMOL/L 0.2 - 2.2 [facility] ID Date Data Source [id number] 06/02/2020 09:35:00 PM EDT [facility] Name Value Range Interpretation Code Description Data [place] rce(s) Supporting Document(s) SARS-CoV-2 (COVID 19) NEGATIVE - SARS-CoV-2 (COVID19) [facility] This lab was ordered by [facility] a nd reported by [facility]. ID Date Data Source [id number] 04/21/2020 05:41:00 PM EST [facility] Name Value Range Interpretation Code Description Data [place] rce(s) Supporting Document(s) SARS coronavirus 2 RNA [Presence] in Res piratory specimen by MARK with probe detection NEGATIVE [facility] This lab was ordered by [facility] a nd reported by [facility]. ID Date Data Source [id number] 04/10/2020 02:50:00 PM EST [facility] Name Value Range Interpretation Code Description Data [place] rce(s) Supporting Document(s) SARS coronavirus 2 RNA [Presence] in Res piratory specimen by MARK with probe detection POSITIVE [facility] This lab was ordered by [facility] a nd reported by [facility]. ID Date Data Source [id number] 04/09/2020 02:48:00 AM EST [facility] Name Value Range Interpretation Code Description Data [place] rce(s) Supporting Document(s) SARS COVID ANTIGEN POSITIVE [facility] This lab was ordered by [facility] a nd reported by [facility]. ID Date Data Source [id number] 04/09/2020 02:46:00 AM EST [facility] Name Value Range Interpretation Code Description Data [place] rce(s) Supporting Document(s) SARS COVID ANTIGEN POSITIVE [facility] This lab was ordered by [facility] a nd reported by [facility]. ID Date Data Source [id number] 03/04/2020 12:09:00 PM EST [facility] Name Value Range Interpretation Code Description Data [place] rce(s) Supporting Document(s) FAZAL DIRECT Negative Negative [facility] Performed at: RN - [facility] [place] [id number] Director: Elsa Garcia MD, Phone: [phone] ID Date Data Source [id number] 03/04/2020 12:05:00 PM EST [facility] Name Value Range Interpretation Code Description Data [place] rce(s) Supporting Document(s) FAZAL Direct Negative Negative [facility] ID Date Data Source [id number] 03/03/2020 08:50:00 AM EST [facility] ADD ON TEST Name Value Range Interpretation Code Description Data [place] rce(s) Supporting Document(s) RHEUMATOID FACTOR SCREEN NEGATIVE NEGATIVE [facility] ID Date Data Source [id number] 03/03/2020 08:37:00 AM EST [facility] ADD ON TEST Name Value Range Interpretation Code Description Data [place] rce(s) Supporting Document(s) FREE T4 1.0 ng/dL 0.76-1.46 [facility] ID Date Data Source [id number] 03/03/2020 08:37:00 AM EST [facility] ADD ON TEST Name Value Range Interpretation Code Description Data [place] rce(s) Supporting Document(s) TSH 0.422 uIU/mL 0.36-3.74 [facility] ID Date Data Source [id number] 03/03/2020 08:11:00 AM EST [facility] ADD ON TEST Name Value Range Interpretation Code Description Data [place] rce(s) Supporting Document(s) C REACTIVE PROTEIN 15.6 mg/L 0.0-3.0 [facility] ID Date Data Source [id number] 03/03/2020 08:11:00 AM EST [facility] ADD ON TEST Name Value Range Interpretation Code Description Data [place] rce(s) Supporting Document(s) GLUCOSE 85 mg/dL 74-106 [facility] BLOOD UREA NITROGEN 11 mg/dL 7-18 [facility] ital CREATININE 0.88 mg/dL 0.6-1.0 [facility] SODIUM 135 mmol/L 136-145 L [facility] POTASSIUM 4.1 mmol/L 3.5-5.1 [facility] CHLORIDE 99 mmol/L 98-107 [facility] CO2 26 mmol/L 21-32 [facility] CALCIUM 8.8 mg/dL 8.5-10.1 [facility] ANION GAP 10.0 mmol/L 5-12 [facility] GLOMERULAR FILTRATION RATE 74 mL/min [facility] GFR IS CALCULATED IN mL/min/1.73m2 ZAYNAB L FUNCTION: >90MILDLY DECREASED: 60-89MILDY TO MODERATELY DECREASED: 45-59 MODERATELY TO SEVERELY DECREASED: 30-44SEVERELY DECREASED: 15-29RENAL FAILURE: <15 AST 32 U/L 15-37 [facility] ALT 32 U/L 12-78 [facility] ALKALINE PHOSPHATASE 65 U/L 46-116 [facility] pital TOTAL BILIRUBIN 0.2 mg/dL 0.2-1.0 [facility] TOTAL PROTEIN 6.9 g/dl 6.4-8.2 [facility] ALBUMIN 3.9 gm/dL 3.4-5.0 [facility] ID Date Data Source [id number] 03/01/2020 05:46:00 PM EST [facility] Name Value Range Interpretation Code Description Data [place] rce(s) Supporting Document(s) CHOLESTEROL 193 mg/dL 0-200 [facility] TRIGLYCERIDES 86 mg/dL 0-150 [facility] LDL CHOLESTEROL 111 mg/dL 0-100 H [facility] HDL CHOLESTEROL 65 mg/dL 40-60 H [facility] CHOL/HDL RATIO 3.0 0.0-5.0 [facility] ID Date Data Source [id number] 02/29/2020 10:40:00 AM EST [facility] Name Value Range Interpretation Code Description Data [place] rce(s) Supporting Document(s) SARS coronavirus 2 RNA [facility] This lab was ordered by [facility] and reported by [facility]. ID Date Data Source [id number] 12/10/2019 11:15:00 AM EDT [address] [id number] NAME: BRUNA LEE#: [id number] PHYSICIAN: PRERNA RIOS MD ADM. DATE: 12/05/19ACCOUNT #: [id number] DISCH. DATE:DISCHARGE SUMMARYIDENTIFICATION: A 34-year-old female with schizoaffective disorder,polysubstance dependence.CHIEF COMPLAINT: "I don't know why I am here."REASON FOR ADMISSION: Post- overdose.HISTORY OF PRESENT ILLNESS: The patient was interviewed in ICU after sheoverdosed. The patient was seen in [facility] for a regularconsultation, she could [...] [place] last time in our service with [...] ABUSE: None.SOCIAL HISTORY: The patient is from [place], did not finish high school.She was in [...] The patient was discharged with the medications Tojrbd58 mg p.o. daily, Neurontin 600 mg p.o. [...] be enrolled in outpatient chemical dependence in [place].MENTAL STATUS EXAMINATION: The patient is pleasant, cooperative. [...] Dictated: 12/10/2019 09:34:34Date Transcribed: 12/10/2019 10:15:05JV/PUSDanielb #: [id number]: 12/10/19 0934 Electronically SignedTRANS:12/10/19 1115 PRERNA RIOS MDTRANS BY:IATDATE SIGNED:12/10/19REPORT COPY TO: Name Value Range Interpretation Code Description Data [place] rce(s) Supporting Document(s) ID Date Data Source [id number] 12/10/2019 06:43:00 AM EDT [place], [place] [address]PATIENT NAME: BRUNA LEE#: [id number] PHYSICIAN: PRERNA RIOS, [facility]ITAL[facility] #: [id number] ADM. DATE: 12/05/19PATIENT : 89 DISCH. DATE: [...] InformationDISCHARGE INFORMATION* Thank you [facility] and allowing us toserve you* Our Goal is to provide the highest quality of care.* This discharge information is to help you better understand your diagnosisand medication* Avoid taking pbdo-vtb-vsnnrsx medicines unless approved by your physician.* Take your medications as prescribed. DO NOT stop any medications unlessapproved first* Weigh yourself daily. Report any gain of 5 lbs in a week* 24 Hour Crisis HOTLINE available: Call [facility] at [phone]* Chem. Dependency: Walk in Clinics [place] ([phone]) and [place] ([phone]) anytime Sunday thru Sunday 8 to 10am. [place] ([phone]) anytimeSunday thru Sunday 8 to 10am. [place] ([phone]) Sunday or Sunday from 8to 10am (Bring $30 to [facility]) SMOKIN G CESSATION* Smoking is dangerous to your health. It delays the healing process, andworks against your medications. Not smoking will improve your health* Our hospital participates with the Opt-to-Quit program. You will be contactedafter discharge by the [facility] Smoker's Quitline for support with tobaccocessation. You have the option once contacted to refuse this service.* You can also go online to www.Zopim. Free nicotine replacementsare available Attention* You should [...] rce(s) Supporting Document(s) ID Date Data Source [id number] 12/10/2019 02:15:00 AM EDT [address] [id number] NAME: BRUNA LEE Joe Orellana#: [id number] PHYSICIAN: PRERNA RIOS MD ADM. DATE: 12/05/19PROGRESS NOTE DATE: 12/09/19 RM.#: [id number] #: [id number] NOTEIDENTIFICATION: A 34-year-old female with mood disorder [...] Dictated: 12/09/2019 10:52:52Date Transcribed: 12/10/2019 01:15:28JV/Basia #: [id number]: 12/09/19 1052 Electronically SignedTRANS:12/10/19 0215 PRERNA RIOS MDTRANS BY:ADE SIGNED:12/10/19REPORT COPY TO: Name Value Range Interpretation Code Description Data [place] rce(s) Supporting Document(s) ID Date Data Source [id number] 12/08/2019 11:58:00 AM EDT [facility] Name Value Range Interpretation Code Description Data [place] rce(s) Supporting Document(s) URINE COLOR Yellow [facility] UAPR Clear [facility] UGLU Negative NEGATIVE [facility] URINE BILIRUBIN Negative NEGATIVE [facility] UKET Negative NEGATIVE [facility] USG 1.015 1.010-1.025 [facility] UBLO Negative NEGATIVE [facility] UpH 8.0 5.0-8.0 [facility] UPRO Negative Negative [facility] UUB 0.2 mg/dL 0.2-1.0 [facility] UNIT Negative Negative [facility] ULEU Negative Negative N [facility] ID Date Data Source [id number] 12/09/2019 04:57:00 AM EDT [address] [id number] NAME: BRUNA LEE#: [id number] PHYSICIAN: PRERNA RIOS MD ADM. DATE: 12/05/19PROGRESS NOTE DATE: 12/08/19 .#: [id number] #: [id number] NOTEIDENTIFICATION: A 34-year-old female with mood disorder, [...] Dictated: 12/08/2019 10:30:51Date Transcribed: 12/09/2019 03:57:49JV/RAVJob #: [id number]: 12/08/19 1030 Electronically SignedTRANS:12/09/19 0457 PRERNA RIOS MDTRANS BY:IATDATE SIGNED:12/09/19REPORT COPY TO: Name Value Range Interpretation Code Description Data [place] rce(s) Supporting Document(s) ID Date Data Source [id number] 12/06/2019 11:02:00 PM EDT [place] [address] [id number] NAME: BRUNA LEE#: [id number] PHYSICIAN: PRERNA RIOS MD ADM. DATE: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 EDT [facility] l TSYSORDER [id number] Name Value Range Interpretation Code Description Data [place] rce(s) Supporting Document(s) DDIMER 0.74 mg/LFEU 0.19-0.60 H [facility] ID Date Data Source [id number] 12/04/2019 12:00:00 AM EDT [facility] Name Value Range Interpretation Code Description Data [place] rce(s) Supporting Document(s) 2019 Novel Coronavirus RNA [facility] This lab was ordered by [facility] L aboratory and reported by [facility]. Procedure Social History Code Duration Value Status Description Data Source(s ) 11/05/2020 12:00:00 AM EDT Heavy cigarette smoker (20- 39 cigs/day) completed Heavy cigarette smoker (20-39 cigs/day) [facility] ([facility]) Smoking 11/05/2020 12:00:00 AM EDT Heavy tobacco smoker comple keven Heavy tobacco smoker [facility] ([facility]) Alcohol intake 09/24/2020 12:00:00 AM EDT Ex-drinker (finding) comp leted Ex- drinker (finding) [facility] Tobacco use and exposure 09/24/2020 12:00:00 AM EDT Never used co mpleted Never used [facility] Cigarettes smoked current (pack per day) - Reported 09/25/19 12:00:00 AM EDT UNK completed [facility] Smoking 09/24/2020 12:00:00 AM EDT Smoker, current status unkn own completed Smoker, current status unknown [facility] Alcohol intake 08/06/2020 12:00:00 AM EDT Ex-drinker (finding) comp leted Ex- drinker (finding) [facility] Smoking 07/22/2020 12:00:00 AM EDT Current Smoker completed Curre nt Smoker eCW1 ([facility]) Smoking 07/22/2020 12:00:00 AM EDT Current Smoker completed Curre nt Smoker eCW1 ([facility] [place]) Smoking 07/22/2020 12:00:00 AM EDT Current Smoker completed Curre nt Smoker eCW1 ([facility] [place]) Smoking 06/14/2020 12:00:00 AM EDT Current Smoker completed Curre nt Smoker eCW1 ([facility] [place]) Smoking 06/14/2020 12:00:00 AM EDT Current Smoker completed Curre nt Smoker eCW1 ([facility] [place]) Smoking 06/14/2020 12:00:00 AM EDT Current Smoker completed Curre nt Smoker eCW1 ([facility] [place]) Smoking 06/14/2020 12:00:00 AM EDT Current Smoker completed Curre nt Smoker eCW1 ([facility] [place]) Smoking 03/30/2020 12:00:00 AM EST Current Smoker completed Curre nt Smoker eCW1 ([facility] [place]) Smoking 03/30/2020 12:00:00 AM EST Current Smoker completed Curre nt Smoker eCW1 ([facility] [place]) Smoking 03/30/2020 12:00:00 AM EST Current Smoker completed Curre nt Smoker eCW1 ([facility] [place]) Smoking 03/30/2020 12:00:00 AM EST Current Smoker completed Curre nt Smoker eCW1 ([facility] [place]) Smoking 03/30/2020 12:00:00 AM EST Current Smoker completed Curre nt Smoker eCW1 ([facility] [place]) Smoking 03/30/2020 12:00:00 AM EST Current Smoker completed Curre nt Smoker eCW1 ([facility] [place]) Smoking 03/30/2020 12:00:00 AM EST Current Smoker completed Curre nt Smoker eCW1 ([facility] [place]) Smoking 03/30/2020 12:00:00 AM EST Current Smoker completed Curre nt Smoker eCW1 ([facility] [place]) Smoking 03/30/2020 12:00:00 AM EST Current Smoker completed Curre nt Smoker eCW1 ([facility] [place]) Smoking 03/30/2020 12:00:00 AM EST Current Smoker completed Curre nt Smoker eCW1 ([facility] [place]) Smoking 03/30/2020 12:00:00 AM EST Current Smoker completed Curre nt Smoker eCW1 ([facility] [place]) Smoking 03/30/2020 12:00:00 AM EST Current Smoker completed Curre nt Smoker eCW1 ([facility] [place]) Smoking 03/30/2020 12:00:00 AM EST Current Smoker completed Curre nt Smoker eCW1 ([facility] [place]) Smoking 03/30/2020 12:00:00 AM EST Current Smoker completed Curre nt Smoker eCW1 ([facility] [place]) Smoking 03/30/2020 12:00:00 AM EST Current Smoker completed Curre nt Smoker eCW1 ([facility] [place]) Smoking 03/30/2020 12:00:00 AM EST Current Smoker completed Curre nt Smoker eCW1 ([facility] [place]) Smoking 03/30/2020 12:00:00 AM EST Current Smoker completed Curre nt Smoker eCW1 ([facility] [place]) Smoking 03/01/2020 12:00:00 AM EST Current Smoker completed Curre nt Smoker eCW1 ([facility] [place]) Smoking 03/01/2020 12:00:00 AM EST Current Smoker completed Curre nt Smoker eCW1 ([facility] [place]) Smoking 03/01/2020 12:00:00 AM EST Current Smoker completed Curre nt Smoker eCW1 ([facility] [place]) Smoking 02/18/2020 12:00:00 AM EST Current Smoker completed Curre nt Smoker eCW1 ([facility] [place]) Smoking 12/24/2019 12:00:00 AM EDT Current Smoker completed Curre nt Smoker eCW1 ([facility] [place]) Smoking 12/24/2019 12:00:00 AM EDT Current Smoker completed Curre nt Smoker eCW1 ([facility] [place]) Smoking 12/24/2019 12:00:00 AM EDT Current Smoker completed Curre nt Smoker eCW1 ([facility] [place]) Smoking 12/24/2019 12:00:00 AM EDT Current Smoker completed Curre nt Smoker eCW1 ([facility] [place]) Smoking 12/24/2019 12:00:00 AM EDT Current Smoker completed Curre nt Smoker eCW1 ([facility] [place]) Smoking 12/24/2019 12:00:00 AM EDT Current Smoker completed Curre nt Smoker eCW1 ([facility] [place]) Smoking 12/24/2019 12:00:00 AM EDT Current Smoker completed Curre nt Smoker eCW1 ([facility] [place]) Vital Signs ID Date Data Source UNK Name Value Range Interpretation Code Description Data Source(s) Diastolic blood pressure 56 mm[Hg] 56 mm[Hg] MATIAS ([facility]) Body height 61 [in_i] 61 [in_i] MATIAS ([facility]) Body mass index (BMI) [Ratio] 31.5 kg/m2 31.5 k g/m2 MATIAS ([facility]) Systolic blood pressure 83 mm[Hg] 83 mm[Hg] A THENA ([facility]) Body weight 2664 [oz_av] 2664 [oz_av] MATIAS ([facility]) Systolic blood pressure 116 mm[Hg] 116 mm[Hg] N [facility]Gen ([facility]) Body weight 74.026 kg 74.026 kg [facility] ([facility]) Body mass index (BMI) [Ratio] 31.87 kg/m2 Overweight 31.87 kg/m2 [facility] ([facility]) Body height 152.40 cm 152.40 cm [facility] ([facility]) Diastolic blood pressure 76 mm[Hg] 76 mm[Hg] Next[facility] ([facility]) Body height 60.0 [in_i] 60.0 [in_i] eCW1 ([facility] [place]) Body weight 183.0 [lb_av] 183.0 [lb_av] eCW1 ([facility]) Body mass index (BMI) [Ratio] 35.74 kg/m2 35.74 kg/m2 eCW1 ([facility] [place]) Heart rate 119 /min 119 /min eCW1 ([facility]) Respiratory rate 18 /min 18 /min eCW1 ([facility]) Oxygen saturation in Arterial blood by Pulse oximetry 98 % 98 % eCW1 ([facility] [place]) Body height 60 [in_i] 60 [in_i] eCW1 ([facility]) Body weight 180.6 [lb_av] 180.6 [lb_av] eCW1 ([facility]) Body mass index (BMI) [Ratio] 35.27 kg/m2 35.27 kg/m2 eCW1 ([facility] [place]) Heart rate 93 /min 93 /min eCW1 ([facility]) Respiratory rate 18 /min 18 /min eCW1 ([facility]) Oxygen saturation in Arterial blood by Pulse oximetry 99 % 99 % eCW1 ([facility] [place]) Body height 60 [in_i] 60 [in_i] eCW1 ([facility]) Body weight 186.8 [lb_av] 186.8 [lb_av] eCW1 ([facility]) Body mass index (BMI) [Ratio] 36.48 kg/m2 36.48 kg/m2 eCW1 ([facility] [place]) Heart rate 89 /min 89 /min eCW1 ([facility]) Respiratory rate 18 /min 18 /min eCW1 ([facility]) Oxygen saturation in Arterial blood by Pulse oximetry 97 % 97 % eCW1 ([facility] [place]) Body height 60 [in_i] 60 [in_i] eCW1 ([facility]) Body weight 164.4 [lb_av] 164.4 [lb_av] eCW1 ([facility]) Body mass index (BMI) [Ratio] 32.10 kg/m2 32.10 kg/m2 eCW1 ([facility] [place]) Body temperature 98.0 [degF] 98.0 [degF] eCW1 ( [facility]) Heart rate 86 /min 86 /min eCW1 ([facility]) Respiratory rate 18 /min 18 /min eCW1 ([facility]) Oxygen saturation in Arterial blood by Pulse oximetry 98 % 98 % eCW1 ([facility] [place]) ID Date Data Source [id number] 10/18/2020 09:45:12 AM EDT [facility] Name Value Range Interpretation Code Description Data Source(s) TRANSFER FROM [facility] ID Date Data Source [id number] 08/27/2020 04:17:02 PM EDT [facility] Name Value Range Interpretation Code Description Data Source(s) TRANSFER FROM [facility] ID Date Data Source [id number] 08/17/2020 03:58:41 PM EDT [facility] Name Value Range Interpretation Code Description Data Source(s) TRANSFER FROM [facility] ID Date Data Source [id number] 12/26/2019 01:56:00 PM EDT [facility] Name Value Range Interpretation Code Description Data Source(s) WEIGHT 72.3 kilos 72.3 kilos [facility] HEIGHT 152.4 centimeters 152.4 centimeters [facility] WEIGHT 75 kilos [facility] HEIGHT 152.4 centimeters 152.4 centimeters [facility] ID Date Data Source [id number] 12/10/2019 06:07:00 AM EDT [facility] Name Value Range Interpretation Code Description Data Source(s) WEIGHT 68 kilos 68 kilos [facility] HEIGHT 152.4 centimeters 152.4 centimeters [facility] WEIGHT 68.4 kilos 68.4 kilos [facility] HEIGHT 152.4 centimeters 152.4 centimeters [facility] ID Date Data Source [id number] 12/08/2019 01:43:00 PM EDT [facility] Name Value Range Interpretation Code Description Data Source(s) WEIGHT 75 kilos 75 kilos [facility] HEIGHT 152.4 centimeters 152.4 centimeters [facility] ID Date Data Source [id number] 12/08/2019 01:43:00 PM [facility]ames Name Value Range Interpretation Code Description Data Source(s) WEIGHT 74 kilos 74 kilos [facility] al HEIGHT 160.02 centimeters 160.02 centimeter [facility] Patient Treatment Plan of Care Planned Activity Planned Date Details Description Data Source (s) Citalopram 10 MG Oral Tablet 09/30/2020 12:00:00 AM [facility] Levetiracetam 1000 MG Oral Tablet 09/29/2020 12:00:00 AM [facility] gabapentin 600 MG Oral Tablet 09/29/2020 12:00:00 AM [facility] Chlorpromazine hydrochloride 100 MG Oral Tablet 09/29/2020 12:00:00 AM [facility] Magnesium Hydroxide 80 MG/ML Oral Suspension 09/13/2020 08:49:03 AM [facility] sennosides, PENITENTIARY 8.6 MG Oral Tablet 09/13/2020 08:49:03 AM [facility] Docusate Sodium 100 MG Oral Capsule 09/13/2020 08:49:03 AM [facility] Bisacodyl 10 MG Rectal Suppository 09/13/2020 08:49:03 AM [facility] Buprenorphine 8 MG / Naloxone 2 MG Oral Strip 08/18/2020 12:00:00 A M [facility] Diphenhydramine Hydrochloride 25 MG Oral Capsule 08/17/2020 10:11:0 1 AM [facility] Asenapine 10 MG Sublingual Tablet 08/17/2020 12:00:00 AM [facility] benztropine mesylate 1 MG Oral Tablet 08/17/2020 12:00:00 AM [facility] gabapentin 300 MG Oral Capsule 08/17/2020 12:00:00 AM [facility] Diphenhydramine Hydrochloride 25 MG Oral Capsule 08/17/2020 12:00:0 0 AM [facility] Buprenorphine 8 MG / Naloxone 2 MG Sublingual Tablet 12:00:00 AM [facility] Clonidine Hydrochloride 0.2 MG Oral Tablet 08/17/2020 12:00:00 AM [facility] Aluminum Hydroxide 40 MG/ML / Magnesium Hydroxide 40 MG/ML / Simethicone 4 MG/ML Oral Suspension 08/06/2020 07:39:14 PM EDT [facility] Magnesium Hydroxide 80 MG/ML Oral Suspension 08/06/2020 07:39:11 PM EDT [facility] gabapentin 600 MG Oral Tablet 07/17/2020 12:00:00 AM EDT [facility] Doxepin Hydrochloride 25 MG Oral Capsule 03/09/2020 12:00:00 AM EST eCW1 ([facility]) Doxepin Hydrochloride 25 MG Oral Capsule 03/09/2020 12:00:00 AM EST eCW1 ([facility] [place]) Doxepin Hydrochloride 25 MG Oral Capsule 03/09/2020 12:00:00 AM EST eCW1 ([facility] [place]) Clonidine Hydrochloride 0.2 MG Oral Tablet 12/24/2019 12:00:00 AM E DT eCW1 ([facility]) Clonidine Hydrochloride 0.2 MG Oral Tablet 12/24/2019 12:00:00 AM E DT eCW1 ([facility] [place]) Clonidine Hydrochloride 0.2 MG Oral Tablet 12/24/2019 12:00:00 AM E DT eCW1 ([facility] [place]) Clonidine Hydrochloride 0.2 MG Oral Tablet 12/24/2019 12:00:00 AM E DT eCW1 ([facility] [place]) Clonidine Hydrochloride 0.2 MG Oral Tablet 12/24/2019 12:00:00 AM E DT eCW1 ([facility] [place]) Clonidine Hydrochloride 0.2 MG Oral Tablet 12/24/2019 12:00:00 AM E DT eCW1 ([facility] [place]) Clonidine Hydrochloride 0.2 MG Oral Tablet 12/24/2019 12:00:00 AM E DT eCW1 ([facility] [place]) Sumatriptan 25 MG Oral Tablet MATIAS ([facility]) Buprenorphine 12 MG / Naloxone 3 MG Oral Strip [Suboxone] MATIAS ([facility]) benztropine mesylate 1 MG Oral Tablet [facility] Clonidine Hydrochloride 0.2 MG Oral Tablet [facility] Levetiracetam 1000 MG Oral Tablet [facility] Lurasidone Hydrochloride 40 MG Oral Tablet [facility] Trazodone Hydrochloride 50 MG Oral Tablet [facility] gabapentin 300 MG Oral Capsule [facility] 24 HR Nicotine 0.875 MG/HR Transdermal Patch [facility]
[2021-01-20] MEDS ORDERED: LORazepam 2 MG/ML VIAL IM ONE (03:25)
[2021-01-20] MEDS ORDERED: diphenhydrAMINE 50MG/ML VIAL (J1200) IM ONE (03:25)
[2021-01-20] MEDS ORDERED: HALOPERIDOL 5MG/ML VIAL (J1630 PER 1) IM ONE (03:25)
[2021-01-20 03:45] VITALS: BP 99/53
[2021-01-20] MEDS ORDERED: chlorproMAZINE 25 MG TABLET PO PRN (03:50)
[2021-01-20] MEDS ORDERED: diphenhydrAMINE 50MG CAP PO ONE (03:50)
[2021-01-20] MEDS ORDERED: ChlorproMAZINE 100 MG TABLET PO ONE (03:50)
[2021-01-20] MEDS ORDERED: NICOTINE 21MG/24HR 1 EA TRANSDERMAL TD SCH (09:00)
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
[2021-01-20] MEDS: chlorproMAZINE 25 MG TABLET PO SCH ×2 (09:51→20:40)
[2021-01-20] MEDS: GABAPENTIN 300 MG CAP PO SCH ×3 (09:51→20:39)
[2021-01-20] MEDS: ESCITALOPRAM OXALATE 10 MG TAB (LEXAPRO) PO SCH (09:51)
[2021-01-20] MEDS: diphenhydrAMINE 50MG CAP PO SCH ×2 (09:51→20:39)
[2021-01-20] MEDS: NICOTINE 21MG/24HR 1 EA TRANSDERMAL TD SCH (09:52)
[2021-01-20] MEDS: levETIRAcetam 250MG TABLET (KEPPRA) PO SCH ×2 (09:52→20:40)
[2021-01-20] MEDS: busPIRone 10 MG TAB PO SCH ×2 (09:52→20:39)
[2021-01-20] MEDS: FUROSEMIDE 20 MG TAB PO SCH (09:52)
[2021-01-20] MEDS: METHADONE 10 MG TAB (S0109) PO SCH (15:45)
[2021-01-20] MEDS ORDERED: FLUTICASONE PROP 0.05% NASAL SPRAY 16 GM (FLONASE) NARES ONE (15:55)
--- NOTE | 2021-01-20 15:55 | HPEPDOC ---
[facility] Medical History & Physical Date of Admission Jan 19, 2021 Date of Service: Jan 20, 2021 History and Physical MEDICAL H&P CC: sore throat and left ear ache x 2 days HISTORY OF PRESENT ILLNESS: Patient is a 35 y/o F with schizoaffective disorder, depression/anxiety with suicidal ideation who was admitted to [facility] with chief diagnosis of schizoaffective disorder. pt slept outside after "being kicked out of my house ,"c/o sore throat w/o f/c/n/v/dysphagia/sob/chills, and left ear ache w/o d/c. She also c/o runny nose, congestion, h/a w/o changes in vision, neck pain or rigidity. 10 pt ROS otherwise negative. PAST MEDICAL HISTORY: 1. Depression/anxiety with history of suicidal ideation/ schizoaffective d/o 2. History of polysubstance abuse 3. Hepatitis C 4. Migraine headaches 5. Seizure disorder 6. History of COVID-19 on March 2020 PAST SURGICAL HISTORY: 1. Hernia repair SOCIAL HISTORY: Tobacco use: Current smoker 2ppd Denies alcohol abuse Denies currently use of iliicit drugs Currently Homeless Follows with [facility] FAMILY HISTORY: Father: History of cirrhosis, alive Mother: History of lupus, alive ALLERGIES: Please see below. HOME MEDICATIONS: Please see below. PHYSICAL EXAMINATION: VITAL SIGNS: Please see below GENERAL: Comfortable, in no apparent distress. HEENT: Sclera clear. left ear TM clear cerumen not bulging. cone of light visualized nares boggy mild sinus tenderness. no cervical LAD RESPIRATORY: Lungs clear to auscultation bilaterally, no rales, wheeze or rhonchi. CARDIOVASCULAR: Regular rate and rhythm. ABDOMEN: Soft, nontender, no guarding or rebound tenderness. Normal bowel sounds. MUSCLE SKELETAL: No pitting edema NEUROLOGICAL: Difficult to assess due to patient's lethargy PSYCHOLOGICAL: Difficult to assess due to patient's lethargy LABORATORY DATA: See below. IMAGING: None MICROBIOLOGY: Please see below. ASSESSMENT: 35-year-old female admitted for schizoaffective disorder with c/o sore throat left ear pain PLAN: Schizoaffective disorder -Plan per psychiatry team Depression/anxiety -Plan per psychiatry team Left ear pain -no signs of otitis media or otitis externa -prn pain meds Sore throat -cepacol lozenges PRN -rapid strep screen URI -PRN antihistamines, flonase Opiate use disorder -per psych team [facility] as outpt Neuropathic pain Continue gabapentin History of seizure disorder Continue Keppra History of migraines Continue sumatriptan as needed Vital Signs Vital Signs Date Time Temp Pulse Resp B/P (MAP) Pulse Ox O2 Delivery O2 Flow Rate FiO2 01/20/21 03:45 97.8 78 18 99/53 (68) 98 Room Air Laboratory Data Labs 24H Laboratory Tests 2 01/19/21 23:48: Nucleated Red Blood Cells % (auto) 0.0, Anion Gap 4L, Glomerular Filtration Rate > 60.0, Calcium Level 9.1, Total Bilirubin 0.3, Direct Bilirubin 0.1, Aspartate Amino Transf (AST/SGOT) 22, Alanine Aminotransferase (ALT/SGPT) 25, Alkaline Phosphatase 75, Total Protein 7.1, Albumin 3.6, Albumin/Globulin Ratio 1.0L, Thyroid Stimulating Hormone (TSH) 0.436, Human Chorionic Gonadotropin, Qual NEGATIVE, Salicylates Level 3.9L, Acetaminophen Level < 2.0L, Ethyl Alcohol Level < 0.003 01/19/21 23:49: Urine Opiates Screen NEGATIVE, Urine Methadone Screen POSITIVEH, Urine Barbiturates Screen NEGATIVE, Urine Phencyclidine Screen NEGATIVE, Urine Amphetamines Screen POSITIVEH, Urine Benzodiazepines Screen NEGATIVE, Urine Cocaine Metabolite Screen NEGATIVE, Urine Cannabinoids Screen NEGATIVE, Coronavirus (COVID-19)(PCR) NEGATIVE, Influenza Type A (RT-PCR) NEGATIVE, Influenza Type B (RT-PCR) NEGATIVE, Respiratory Syncytial Virus (PCR) NEGATIVE CBC/BMP Laboratory Tests 01/19/21 23:48 Home Medications Scheduled Buspirone HCl (Buspirone HCl) 10 Mg Tablet, 10 MG PO BID Escitalopram Oxalate (Lexapro) 10 Mg Tablet, 10 MG PO DAILY Furosemide (Furosemide) 20 Mg Tablet, 20 MG PO DAILY Gabapentin (Gabapentin) 600 Mg Tablet, 600 MG PO TID Levetiracetam (Keppra) 1,000 Mg Tablet, 1,000 MG PO BID Methadone HCl (Methadone HCl) 10 Mg/1 Ml Oral.conc, 100 MG PO DAILY Scheduled PRN Albuterol Sulfate (Albuterol Sulfate Hfa) 8.5 Gm Hfa.aer.ad, 2 PUFFS INH Q4H PRN for SHORTNESS OF BREATH Benztropine Mesylate (Benztropine Mesylate) 1 Mg Tablet, 1 MG PO BID PRN for EXTRAPYRAMIDAL SYMPTOMS Clonidine HCl (Clonidine HCl) 0.2 Mg Tablet, 0.2 MG PO BID PRN for ANXIETY Prazosin Hcl (Prazosin HCl) 1 Mg Capsule, 1 MG PO QHS PRN for NIGHTMARES Sennosides (Senna) 8.6 Mg Tablet, 2 TAB PO DAILY PRN for CONSTIPATION Sumatriptan Succinate (Sumatriptan Succinate) 25 Mg Tablet, 25 MG PO DAILY PRN for MIGRAINE Trazodone HCl (Trazodone HCl) 100 Mg Tablet, 100 MG PO QHS PRN for INSOMNIA Allergies Coded Allergies: Penicillins (Verified Allergy, Mild, Hives, 11/20/20) sulfamethoxazole (Verified Allergy, Mild, Blisters, 11/20/20) trimethoprim (Verified Allergy, Mild, Blisters, 11/20/20) dextroamphetamine (Verified Allergy, Unknown, 11/20/20) haloperidol (Verified Allergy, Unknown, 11/20/20) olanzapine (Verified Allergy, Unknown, 11/20/20) ziprasidone (Verified Allergy, Unknown, 11/20/20) A-FIB/CHADSVASC A-FIB History Current/History of A-Fib/PAF?: No Current PO Anticoag Therapy: No Age/Risk Factor Scoring CHADSVASC: CHADSVASC Response (Comments) Value Age Risk Factor Age < 65 years old 0 Gender Risk Factor Female 1 Hx of CHF No 0 Hx of HTN No 0 Hx of Stroke/TIA/or VTE No 0 Hx of Diabetes No 0 Hx of Vascular Disease No 0 Total 1 Treatment Treatment ordered: NONE AGUS PINA MD Jan 20, 2021 09:13
[2021-01-20] MEDS ORDERED: CETIRIZINE (ZyrTEC) 10 MG TAB PO ONE (16:15)
[2021-01-20] MEDS ORDERED: FIORICET TAB PO ONE (16:15)
[2021-01-20] MEDS ORDERED: CEPACOL LOZENGE PO ONE (16:15)
[2021-01-20] MEDS ORDERED: MONTELUKAST 10 MG TAB PO ONE (16:15)
[2021-01-20 18:36] VITALS: BP 107/57
[2021-01-20] MEDS: FLUTICASONE PROP 0.05% NASAL SPRAY 16 GM (FLONASE) NARES SCH (20:38)
[2021-01-20] MEDS: cloNIDine 0.2 MG TAB PO PRN (20:42)
[2021-01-20] MEDS: traZODone 100 MG TAB PO PRN (20:44)
[2021-01-21 06:26] VITALS: BP 103/62
[2021-01-21] MEDS: FLUTICASONE PROP 0.05% NASAL SPRAY 16 GM (FLONASE) NARES SCH ×2 (07:58→21:33)
[2021-01-21] MEDS: busPIRone 10 MG TAB PO SCH (07:59)
[2021-01-21] MEDS: GABAPENTIN 300 MG CAP PO SCH ×3 (07:59→21:31)
[2021-01-21] MEDS: levETIRAcetam 250MG TABLET (KEPPRA) PO SCH ×2 (07:59→21:31)
[2021-01-21] MEDS: NICOTINE 21MG/24HR 1 EA TRANSDERMAL TD SCH (08:00)
[2021-01-21] MEDS: FUROSEMIDE 20 MG TAB PO SCH (08:01)
[2021-01-21] MEDS: ESCITALOPRAM OXALATE 10 MG TAB (LEXAPRO) PO SCH (08:01)
[2021-01-21] MEDS: CETIRIZINE (ZyrTEC) 10 MG TAB PO SCH (08:01)
[2021-01-21] MEDS: chlorproMAZINE 25 MG TABLET PO SCH ×2 (08:01→21:32)
[2021-01-21] MEDS: diphenhydrAMINE 50MG CAP PO SCH ×2 (08:01→21:32)
[2021-01-21] MEDS: METHADONE 10 MG TAB (S0109) PO SCH (08:02)
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
[2021-01-21] MEDS: ACETAMINOPHEN TAB 650MG DOSE (2X325MG) PO PRN (13:01)
[2021-01-21] MEDS: CEPACOL LOZENGE PO PRN ×2 (13:01→17:47)
[2021-01-21] MEDS ORDERED: HOME MED LIST COMPLETE! XX SCH (15:35)
[2021-01-21 17:14] VITALS: BP 100/56
[2021-01-21] MEDS: traZODone 100 MG TAB PO PRN (21:32)
[2021-01-21] MEDS: busPIRone 5 MG TAB PO SCH (21:32)
[2021-01-22] VITALS (11 sets, daily range): BP systolic 109–133; BP diastolic 51–76
[2021-01-22] MEDS: BENZTROPINE 1 MG TAB PO PRN (07:42)
[2021-01-22] MEDS: chlorproMAZINE 25 MG TABLET PO SCH ×2 (07:43→21:00)
[2021-01-22] MEDS: FLUTICASONE PROP 0.05% NASAL SPRAY 16 GM (FLONASE) NARES SCH ×2 (07:43→21:00)
[2021-01-22] MEDS: GABAPENTIN 300 MG CAP PO SCH ×3 (07:43→21:00)
[2021-01-22] MEDS: busPIRone 5 MG TAB PO SCH ×2 (07:44→21:00)
[2021-01-22] MEDS: FUROSEMIDE 20 MG TAB PO SCH (07:44)
[2021-01-22] MEDS: METHADONE 10 MG TAB (S0109) PO SCH (07:44)
[2021-01-22] MEDS: levETIRAcetam 250MG TABLET (KEPPRA) PO SCH ×2 (07:44→21:00)
[2021-01-22] MEDS: ESCITALOPRAM OXALATE 10 MG TAB (LEXAPRO) PO SCH (07:44)
[2021-01-22] MEDS: diphenhydrAMINE 50MG CAP PO SCH ×2 (07:44→21:00)
[2021-01-22] MEDS: CETIRIZINE (ZyrTEC) 10 MG TAB PO SCH (07:44)
[2021-01-22] MEDS: NICOTINE 21MG/24HR 1 EA TRANSDERMAL TD SCH (07:45)
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
[2021-01-22] MEDS ORDERED: chlorproMAZINE INJ 50MG/2ML AMP (J3230) IM STA (12:47)
[2021-01-22] MEDS ORDERED: LORazepam 2 MG/ML VIAL IM STA (12:47)
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
[2021-01-23] MEDS: levETIRAcetam 250MG TABLET (KEPPRA) PO SCH ×2 (09:24→21:13)
[2021-01-23] MEDS: FLUTICASONE PROP 0.05% NASAL SPRAY 16 GM (FLONASE) NARES SCH ×2 (09:24→21:14)
[2021-01-23] MEDS: CETIRIZINE (ZyrTEC) 10 MG TAB PO SCH (09:24)
[2021-01-23] MEDS: FUROSEMIDE 20 MG TAB PO SCH (09:25)
[2021-01-23] MEDS: chlorproMAZINE 25 MG TABLET PO SCH ×2 (09:25→21:14)
[2021-01-23] MEDS: ESCITALOPRAM OXALATE 10 MG TAB (LEXAPRO) PO SCH (09:25)
[2021-01-23] MEDS: GABAPENTIN 300 MG CAP PO SCH ×3 (09:25→21:13)
[2021-01-23] MEDS: METHADONE 10 MG TAB (S0109) PO SCH (09:25)
[2021-01-23] MEDS: diphenhydrAMINE 50MG CAP PO SCH ×2 (09:25→21:13)
[2021-01-23] MEDS: busPIRone 5 MG TAB PO SCH ×2 (09:25→21:13)
[2021-01-23] MEDS: NICOTINE 21MG/24HR 1 EA TRANSDERMAL TD SCH (09:25)
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
--- NOTE | 2021-01-23 11:45 | MHPR ---
General Date: Jan 23, 2021 Time: 11:00 Post-Restraint Evaluation THE OUTCOME OF THE RESTRAINT: Patient was calmer, no longer agitated EFFECTIVENESS OF THE RESTRAINT: Mechanical and/or chemical: Positive ANY EVIDENCE THAT THE PATIENT WAS AFFECTED EMOTIONALLY: Not indicated ANY NEED FOR COUNSELING/ASSISTANCE: None CHANGES IN TREATMENT PLAN: Offer PRN medications earlier RECOMMENDATIONS FOR FUTURE INCIDENTS: offer PRN medications earlier, redirection to room if starts to be agitated. JACOB EDWARDS MD Jan 23, 2021 11:45
[2021-01-23] MEDS: traZODone 100 MG TAB PO PRN (21:13)
[2021-01-23] MEDS: cloNIDine 0.2 MG TAB PO PRN (21:14)
[2021-01-24 06:33] VITALS: BP 94/50
[2021-01-24] MEDS: CETIRIZINE (ZyrTEC) 10 MG TAB PO SCH (08:59)
[2021-01-24] MEDS: FLUTICASONE PROP 0.05% NASAL SPRAY 16 GM (FLONASE) NARES SCH ×2 (08:59→20:11)
[2021-01-24] MEDS: levETIRAcetam 250MG TABLET (KEPPRA) PO SCH ×2 (08:59→20:12)
[2021-01-24] MEDS: ESCITALOPRAM OXALATE 10 MG TAB (LEXAPRO) PO SCH (09:00)
[2021-01-24] MEDS: FUROSEMIDE 20 MG TAB PO SCH (09:00)
[2021-01-24] MEDS: GABAPENTIN 300 MG CAP PO SCH ×3 (09:00→20:11)
[2021-01-24] MEDS: busPIRone 5 MG TAB PO SCH ×2 (09:01→20:11)
[2021-01-24] MEDS: diphenhydrAMINE 50MG CAP PO SCH ×2 (09:01→20:11)
[2021-01-24] MEDS: chlorproMAZINE 25 MG TABLET PO SCH ×2 (09:01→20:11)
[2021-01-24] MEDS: NICOTINE 21MG/24HR 1 EA TRANSDERMAL TD SCH (09:02)
[2021-01-24] MEDS: METHADONE 10 MG TAB (S0109) PO SCH (09:02)
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
[2021-01-24 17:55] VITALS: BP 90/54
[2021-01-24] MEDS: traZODone 100 MG TAB PO PRN (20:11)
[2021-01-24] MEDS: cloNIDine 0.2 MG TAB PO PRN (20:11)
[2021-01-25 06:47] VITALS: BP 118/64
[2021-01-25] MEDS: levETIRAcetam 250MG TABLET (KEPPRA) PO SCH ×2 (08:29→20:11)
[2021-01-25] MEDS: FLUTICASONE PROP 0.05% NASAL SPRAY 16 GM (FLONASE) NARES SCH ×2 (08:29→20:10)
[2021-01-25] MEDS: CETIRIZINE (ZyrTEC) 10 MG TAB PO SCH (08:29)
[2021-01-25] MEDS: GABAPENTIN 300 MG CAP PO SCH ×3 (08:30→20:11)
[2021-01-25] MEDS: FUROSEMIDE 20 MG TAB PO SCH (08:30)
[2021-01-25] MEDS: busPIRone 5 MG TAB PO SCH ×2 (08:31→20:11)
[2021-01-25] MEDS: chlorproMAZINE 25 MG TABLET PO SCH ×2 (08:31→20:12)
[2021-01-25] MEDS: ESCITALOPRAM OXALATE 10 MG TAB (LEXAPRO) PO SCH (08:31)
[2021-01-25] MEDS: diphenhydrAMINE 50MG CAP PO SCH ×2 (08:31→20:11)
[2021-01-25] MEDS: NICOTINE 21MG/24HR 1 EA TRANSDERMAL TD SCH (08:32)
[2021-01-25] MEDS: METHADONE 10 MG TAB (S0109) PO SCH (08:32)
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
[2021-01-25] MEDS: BENZTROPINE 1 MG TAB PO PRN (14:10)
[2021-01-25 18:44] VITALS: BP 112/59
[2021-01-25] MEDS: traZODone 100 MG TAB PO PRN (20:11)
[2021-01-26] MEDS: ACETAMINOPHEN TAB 650MG DOSE (2X325MG) PO PRN ×2 (02:35→12:51)
[2021-01-26 06:24] VITALS: BP 127/75
[2021-01-26] MEDS: levETIRAcetam 250MG TABLET (KEPPRA) PO SCH ×2 (09:09→20:06)
[2021-01-26] MEDS: GABAPENTIN 300 MG CAP PO SCH ×3 (09:09→20:06)
[2021-01-26] MEDS: busPIRone 5 MG TAB PO SCH ×2 (09:09→20:06)
[2021-01-26] MEDS: ESCITALOPRAM OXALATE 10 MG TAB (LEXAPRO) PO SCH (09:09)
[2021-01-26] MEDS: FLUTICASONE PROP 0.05% NASAL SPRAY 16 GM (FLONASE) NARES SCH ×2 (09:09→20:06)
[2021-01-26] MEDS: CETIRIZINE (ZyrTEC) 10 MG TAB PO SCH (09:10)
[2021-01-26] MEDS: diphenhydrAMINE 50MG CAP PO SCH ×2 (09:10→20:06)
[2021-01-26] MEDS: NICOTINE 21MG/24HR 1 EA TRANSDERMAL TD SCH (09:10)
[2021-01-26] MEDS: FUROSEMIDE 20 MG TAB PO SCH (09:10)
[2021-01-26] MEDS: chlorproMAZINE 25 MG TABLET PO SCH ×2 (09:10→20:06)
[2021-01-26] MEDS: cloNIDine 0.2 MG TAB PO PRN (12:49)
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
[2021-01-26] MEDS: METHADONE 10 MG TAB (S0109) PO SCH (13:37)
[2021-01-26 18:01] VITALS: BP 96/53
[2021-01-26] MEDS: traZODone 100 MG TAB PO PRN (20:20)
[2021-01-27] MEDS: METHADONE 10 MG TAB (S0109) PO SCH (08:18)
[2021-01-27] MEDS: FUROSEMIDE 20 MG TAB PO SCH (08:19)
[2021-01-27] MEDS: levETIRAcetam 250MG TABLET (KEPPRA) PO SCH ×2 (08:19→20:26)
[2021-01-27] MEDS: ESCITALOPRAM OXALATE 10 MG TAB (LEXAPRO) PO SCH (08:19)
[2021-01-27] MEDS: chlorproMAZINE 25 MG TABLET PO SCH ×2 (08:19→20:27)
[2021-01-27] MEDS: CETIRIZINE (ZyrTEC) 10 MG TAB PO SCH (08:19)
[2021-01-27] MEDS: busPIRone 5 MG TAB PO SCH ×2 (08:19→20:28)
[2021-01-27] MEDS: diphenhydrAMINE 50MG CAP PO SCH ×2 (08:19→20:26)
[2021-01-27] MEDS: GABAPENTIN 300 MG CAP PO SCH ×3 (08:20→20:27)
[2021-01-27] MEDS: NICOTINE 21MG/24HR 1 EA TRANSDERMAL TD SCH (08:20)
[2021-01-27] MEDS: FLUTICASONE PROP 0.05% NASAL SPRAY 16 GM (FLONASE) NARES SCH ×2 (08:20→20:26)
[2021-01-27] MEDS: cloNIDine 0.2 MG TAB PO PRN ×2 (08:25→20:27)
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
[2021-01-27] MEDS: ACETAMINOPHEN TAB 650MG DOSE (2X325MG) PO PRN (16:10)
[2021-01-27 18:37] VITALS: BP 84/50
[2021-01-27] MEDS: BENZTROPINE 1 MG TAB PO PRN (20:26)
[2021-01-27 20:27] VITALS: BP 101/53
[2021-01-28 07:39] VITALS: BP 114/50
[2021-01-28] MEDS: NICOTINE 21MG/24HR 1 EA TRANSDERMAL TD SCH (09:00)
[2021-01-28] MEDS: FLUTICASONE PROP 0.05% NASAL SPRAY 16 GM (FLONASE) NARES SCH (09:57)
[2021-01-28] MEDS: CETIRIZINE (ZyrTEC) 10 MG TAB PO SCH (09:58)
[2021-01-28] MEDS: ESCITALOPRAM OXALATE 10 MG TAB (LEXAPRO) PO SCH (09:58)
[2021-01-28] MEDS: chlorproMAZINE 25 MG TABLET PO SCH (09:58)
[2021-01-28] MEDS: FUROSEMIDE 20 MG TAB PO SCH (09:58)
[2021-01-28] MEDS: busPIRone 5 MG TAB PO SCH (09:59)
[2021-01-28] MEDS: diphenhydrAMINE 50MG CAP PO SCH (09:59)
[2021-01-28] MEDS: levETIRAcetam 250MG TABLET (KEPPRA) PO SCH (09:59)
[2021-01-28] MEDS ORDERED: CLON0.2T PO (10:00)
[2021-01-28] MEDS ORDERED: CHLOR25TA PO (10:00)
[2021-01-28] MEDS ORDERED: DIPH50CA PO (10:00)
[2021-01-28] MEDS: METHADONE 10 MG TAB (S0109) PO SCH (10:00)
[2021-01-28] MEDS ORDERED: LEXA1TAB2 PO (10:00)
[2021-01-28] MEDS ORDERED: BUSP5TA PO (10:00)
[2021-01-28] MEDS: GABAPENTIN 300 MG CAP PO SCH (10:00)
[2021-01-28] MEDS ORDERED: PRAZ1CAP PO (10:00)
[2021-01-28] MEDS ORDERED: NICO21PAT TD (10:02)
[2021-01-28] MEDS ORDERED: NARC1SPR NARES (10:36)
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
[2021-02-19] MEDS ORDERED: OMEP-218 PO (06:40)
== END 2021-01-28 12:25 | disposition home or self-care (01) | DRG 773 ==
LOC: M ED 13:02 → M ED INP 01-20 02:19 → M PSY 01-20 03:45
PROVIDERS: ADMIT Student in an Organized Health Care Education/Training Program; ATTEND Student in an Organized Health Care Education/Training Program
DX: F11.159 Opioid abuse with opioid-induced psychotic disorder, unspecified (principal); Z78.1 Physical restraint status; F16.10 Hallucinogen abuse, uncomplicated; F12.10 Cannabis abuse, uncomplicated; F15.10 Other stimulant abuse, uncomplicated; F17.200 Nicotine dependence, unspecified, uncomplicated; F60.3 Borderline personality disorder; F60.2 Antisocial personality disorder; Z20.822 Contact with and (suspected) exposure to COVID-19; Z79.899 Other long term (current) drug therapy; Z88.0 Allergy status to penicillin; Z88.2 Allergy status to sulfonamides; Z88.8 Allergy status to other drugs, medicaments and biological substances; G40.909 Epilepsy, unspecified, not intractable, without status epilepticus; G43.909 Migraine, unspecified, not intractable, without status migrainosus; Z86.16 Personal history of COVID-19; Z59.00 Homelessness unspecified; Z81.8 Family history of other mental and behavioral disorders; Z76.5 Malingerer [conscious simulation]

== ENCOUNTER 2021-02-18 20:08 | Emergency (ER) | payer MEDICAID, OTHER ==
[~2021-02-18] VITALS: Ht 154.9 cm; Wt 83.6 kg
[~2021-02-18 20:08] MED LIST changes: +BUSP5TA PO; +CHLOR25TA PO; -CITA10TA5 PO; +CITA10TA7 PO; +DIPH50CA PO; -LATU80TA; +LATU80TA2; +LEXA1TAB2 PO; +NARC1SPR NARES; +PRAZ1CAP PO; +SENN8.6T28 PO
[2021-02-19 00:22] LABS: HEMATOCRIT 34.1 % (36.0-47.0); HEMOGLOBIN 11.3 g/dl (12.0-15.5); MEAN CORPUSCULAR HEMOGLOBIN 30.1 pg (27.0-33.0); MEAN CORPUSCULAR HGB CONC 33.1 g/dl (32.0-36.5); MEAN CORPUSCULAR VOLUME 90.9 fl (80.0-96.0); PLATELET COUNT, AUTOMATED 263 10^3/uL (150-450); RED BLOOD COUNT 3.75 10^6/uL (4.00-5.40); WHITE BLOOD COUNT 5.6 10^3/uL (4.0-10.0)
[2021-02-19 00:59] LABS: RSV AMPLIFICATION NEGATIVE (NEGATIVE)
[2021-02-19 01:08] LABS: ACETAMINOPHEN LEVEL < 2.0 UG/ML (10.0-30.0); ALBUMIN 3.8 GM/DL (3.2-5.2); ALT/SGPT 82 U/L (12-78); BILIRUBIN,DIRECT < 0.1 MG/DL (0.0-0.2); BILIRUBIN,TOTAL 0.2 MG/DL (0.2-1.0); BLOOD UREA NITROGEN 13 MG/DL (7-18); CALCIUM LEVEL 8.9 MG/DL (8.5-10.1); CARBON DIOXIDE LEVEL 31 MEQ/L (21-32); CHLORIDE LEVEL 103 MEQ/L (98-107); CREATININE FOR GFR 0.67 MG/DL (0.55-1.30); ETHYL ALCOHOL (ETHANOL) < 0.003 % (0.000-0.010); GLOMERULAR FILTRATION RATE > 60.0 (>60); GLUCOSE, FASTING 127 MG/DL (70-100); POTASSIUM SERUM 3.7 MEQ/L (3.5-5.1); SALICYLATE LEVEL < 1.7 MG/DL (5.0-30.0); SODIUM LEVEL 140 MEQ/L (136-145); THYROID STIMULATING HORMONE 0.772 uIU/ML (0.358-3.740); TOTAL PROTEIN 6.9 GM/DL (6.4-8.2)
[2021-02-19] MEDS ORDERED: LEXA1TAB PO (06:40)
[2021-02-19] MEDS ORDERED: GABA-283 PO (06:40)
[2021-02-19] MEDS ORDERED: DOCU100C16 PO (06:40)
[2021-02-19] MEDS ORDERED: DIPH-319 PO (06:40)
[2021-02-19] MEDS ORDERED: CLON0.2T PO (06:40)
[2021-02-19] MEDS ORDERED: QUET1TAB17 PO (06:40)
[2021-02-19] MEDS ORDERED: QUET100T2 PO (06:40)
[2021-02-19] MEDS ORDERED: OMEP-173 PO (06:40)
[2021-02-19] MEDS ORDERED: LEVE500T5 PO (06:40)
[2021-02-19] MEDS ORDERED: LORA-674 PO (06:40)
[2021-02-19] MEDS ORDERED: BUSP15TA47 PO (06:40)
[2021-02-19 08:55] LABS: AMPHETAMINES LEVEL URINE NEGATIVE (NEGATIVE); BARBITURATES URINE NEGATIVE (NEGATIVE); BENZODIAZEPINES URINE NEGATIVE (NEGATIVE); CANNABINOIDS URINE POSITIVE (NEGATIVE); COCAINE METABOLITE URINE NEGATIVE (NEGATIVE); METHADONE URINE POSITIVE (NEGATIVE); OPIATES URINE NEGATIVE (NEGATIVE); PHENCYCLIDINE URINE NEGATIVE (NEGATIVE)
[2021-02-19] MEDS ORDERED: ACETAMINOPHEN TAB 650MG DOSE (2X325MG) PO ONE ×2 (09:05→21:30)
[2021-02-19] MEDS ORDERED: cloNIDine 0.2 MG TAB PO ONE (10:10)
[2021-02-19] MEDS ORDERED: QUEtiapine FUMARATE 50MG TAB PO ONE ×3 (10:10→22:25)
[2021-02-19] MEDS ORDERED: ESCITALOPRAM OXALATE 10 MG TAB (LEXAPRO) PO ONE (10:10)
[2021-02-19] MEDS ORDERED: levETIRAcetam 250MG TABLET (KEPPRA) PO ONE ×2 (10:10→22:25)
[2021-02-19] MEDS ORDERED: GABAPENTIN 400MG CAP PO ONE ×2 (10:10→22:25)
[2021-02-19] MEDS ORDERED: FUROSEMIDE 20 MG TAB PO ONE (10:10)
[2021-02-19] MEDS ORDERED: GABA800T4 PO (19:25)
[2021-02-19] MEDS ORDERED: HOME MED LIST COMPLETE! XX SCH (19:30)
[2021-02-19] MEDS ORDERED: QUEtiapine FUMARATE 200 MG TAB PO ONE (22:25)
[2021-02-19] MEDS ORDERED: diphenhydrAMINE 50MG CAP PO ONE (22:25)
[2021-02-19] MEDS ORDERED: traZODone 100 MG TAB PO ONE (22:25)
[2021-02-20] MEDS ORDERED: cloNIDine 0.2 MG TAB PO ONE ×2 (08:05→22:00)
[2021-02-20] MEDS ORDERED: METHADONE 10 MG TAB (S0109) PO ONE (09:00)
[2021-02-20] MEDS ORDERED: OMEPRAZOLE 20MG CAP PO ONE (09:00)
[2021-02-20] MEDS ORDERED: FUROSEMIDE 20 MG TAB PO ONE (09:00)
[2021-02-20] MEDS ORDERED: DOCUSATE SODIUM 100MG CAPSULE PO ONE (09:00)
[2021-02-20] MEDS ORDERED: levETIRAcetam 250MG TABLET (KEPPRA) PO ONE ×2 (09:00→22:00)
[2021-02-20] MEDS ORDERED: GABAPENTIN 400MG CAP PO ONE ×2 (09:00→22:00)
[2021-02-20] MEDS ORDERED: ESCITALOPRAM OXALATE 10 MG TAB (LEXAPRO) PO ONE (09:00)
[2021-02-20] MEDS ORDERED: diphenhydrAMINE 50MG CAP PO ONE (09:00)
[2021-02-20] MEDS ORDERED: QUEtiapine FUMARATE 50MG TAB PO ONE ×2 (09:00→21:00)
[2021-02-20] MEDS ORDERED: busPIRone 5 MG TAB PO ONE (09:00)
[2021-02-20] MEDS ORDERED: LORATADINE 10 MG TAB PO ONE (21:00)
[2021-02-20 22:24] VITALS: BP 105/58
[2021-02-20] MEDS ORDERED: hydrOXYzine 25 MG TAB PO STA (22:44)
[2021-02-20] MEDS ORDERED: diphenhydrAMINE 25MG CAP PO ONE (22:45)
[2021-02-21 08:14] LABS: HCG, SERUM QUALITATIVE NEGATIVE (NEGATIVE)
[2021-02-21] MEDS ORDERED: GABAPENTIN 400MG CAP PO SCH (09:00)
[2021-02-21] MEDS ORDERED: busPIRone 5 MG TAB PO SCH (09:00)
[2021-02-21] MEDS ORDERED: FUROSEMIDE 20 MG TAB PO SCH (09:00)
[2021-02-21] MEDS ORDERED: diphenhydrAMINE 50MG CAP PO SCH (09:00)
[2021-02-21] MEDS ORDERED: levETIRAcetam 250MG TABLET (KEPPRA) PO SCH (09:00)
[2021-02-21] MEDS ORDERED: METHADONE 10 MG TAB (S0109) PO SCH (09:00)
[2021-02-21] MEDS ORDERED: OMEPRAZOLE 20MG CAP PO SCH (09:00)
[2021-02-21] MEDS ORDERED: QUEtiapine FUMARATE 50MG TAB PO SCH ×2 (09:00→21:00)
[2021-02-21] MEDS ORDERED: ESCITALOPRAM OXALATE 10 MG TAB (LEXAPRO) PO SCH (09:00)
[2021-02-21 14:13] VITALS: BP 102/62
[2021-02-21] MEDS ORDERED: QUEtiapine FUMARATE 200 MG TAB PO SCH (21:00)
== END 2021-02-21 14:19 | disposition home or self-care (01) ==
LOC: M ED 20:08
DX: R45.851 Suicidal ideations (principal); R45.850 Homicidal ideations; S80.812A Abrasion, left lower leg, initial encounter; Y04.8XXA Assault by other bodily force, initial encounter; Y92.89 Other specified places as the place of occurrence of the external cause; Y93.9 Activity, unspecified; Y99.9 Unspecified external cause status; M54.9 Dorsalgia, unspecified; R00.1 Bradycardia, unspecified; R56.9 Unspecified convulsions; R51.9 Headache, unspecified; F41.9 Anxiety disorder, unspecified; F32.9 Major depressive disorder, single episode, unspecified; F25.9 Schizoaffective disorder, unspecified; F12.10 Cannabis abuse, uncomplicated; F19.10 Other psychoactive substance abuse, uncomplicated; Z86.19 Personal history of other infectious and parasitic diseases; F17.200 Nicotine dependence, unspecified, uncomplicated; Z79.899 Other long term (current) drug therapy; Z88.0 Allergy status to penicillin; Z88.8 Allergy status to other drugs, medicaments and biological substances; Z88.2 Allergy status to sulfonamides

== ENCOUNTER 2021-03-03 10:35 | Emergency (ER) | payer OTHER ==
[~2021-03-03 10:35] MED LIST changes: +BUSP15TA47 PO; +DOCU100C16 PO; +LATU80TA; -LATU80TA2; +LEVE500T5 PO; +OMEP-218 PO; +QUET1TAB17 PO
[2021-03-03 11:09] VITALS: BP 148/92
== END 2021-03-03 11:50 | disposition left against medical advice (07) ==
LOC: M ED 10:35 → EDBD 10:35 → M ED 11:50
DX: F29 Unspecified psychosis not due to a substance or known physiological condition (principal); Z53.20 Procedure and treatment not carried out because of patient's decision for unspecified reasons; Z88.0 Allergy status to penicillin; Z88.2 Allergy status to sulfonamides; Z88.8 Allergy status to other drugs, medicaments and biological substances; Z79.899 Other long term (current) drug therapy

== ENCOUNTER 2021-04-25 22:14 | Emergency (ER) | payer OTHER ==
[~2021-04-25] VITALS: Ht 152.4 cm; Wt 77.0 kg
[~2021-04-25 22:14] MED LIST changes: -LATU80TA; +LATU80TA2; +OMEP-173 PO; -OMEP-218 PO
[2021-04-25 23:33] LABS: HEMOGLOBIN 13.1 g/dl (12.0-15.5); MEAN CORPUSCULAR HEMOGLOBIN 30.3 pg (27.0-33.0); MEAN CORPUSCULAR HGB CONC 32.8 g/dl (32.0-36.5); MEAN CORPUSCULAR VOLUME 92.4 fl (80.0-96.0); PLATELET COUNT, AUTOMATED 283 10^3/uL (150-450); RED BLOOD COUNT 4.33 10^6/uL (4.00-5.40); WHITE BLOOD COUNT 10.4 10^3/uL (4.0-10.0)
[2021-04-26 00:06] LABS: AMPHETAMINES LEVEL URINE NEGATIVE (NEGATIVE); BARBITURATES URINE NEGATIVE (NEGATIVE); BENZODIAZEPINES URINE NEGATIVE (NEGATIVE); CANNABINOIDS URINE POSITIVE (NEGATIVE); COCAINE METABOLITE URINE POSITIVE (NEGATIVE); METHADONE URINE POSITIVE (NEGATIVE); OPIATES URINE NEGATIVE (NEGATIVE); PHENCYCLIDINE URINE NEGATIVE (NEGATIVE)
[2021-04-26 00:09] LABS: RSV AMPLIFICATION NEGATIVE (NEGATIVE)
[2021-04-26 01:01] LABS: GC DNA AMPLIFICATION NEGATIVE (NEGATIVE)
[2021-04-26 02:45] LABS: ACETAMINOPHEN LEVEL < 2.0 UG/ML (10.0-30.0); ALBUMIN 3.7 GM/DL (3.2-5.2); ALT/SGPT 49 U/L (12-78); BILIRUBIN,DIRECT < 0.1 MG/DL (0.0-0.2); BILIRUBIN,TOTAL 0.2 MG/DL (0.2-1.0); BLOOD UREA NITROGEN 16 MG/DL (7-18); CALCIUM LEVEL 8.7 MG/DL (8.5-10.1); CARBON DIOXIDE LEVEL 31 MEQ/L (21-32); CHLORIDE LEVEL 103 MEQ/L (98-107); CREATININE FOR GFR 0.66 MG/DL (0.55-1.30); ETHYL ALCOHOL (ETHANOL) < 0.003 % (0.000-0.010); GLOMERULAR FILTRATION RATE > 60.0 (>60); GLUCOSE, FASTING 74 MG/DL (70-100); POTASSIUM SERUM 3.7 MEQ/L (3.5-5.1); SALICYLATE LEVEL 2.3 MG/DL (5.0-30.0); SODIUM LEVEL 139 MEQ/L (136-145); TOTAL PROTEIN 7.5 GM/DL (6.4-8.2)
[2021-04-26] MEDS ORDERED: METR-265 PO (09:57)
[2021-04-26 10:07] LABS: HIV 1&2 SCREEN CENTAUR NEGATIVE (NEGATIVE)
== END 2021-04-26 01:43 | disposition left against medical advice (07) ==
LOC: M ED 22:14
DX: F19.10 Other psychoactive substance abuse, uncomplicated (principal); F32.A Depression, unspecified; B18.2 Chronic viral hepatitis C; F17.200 Nicotine dependence, unspecified, uncomplicated; F11.10 Opioid abuse, uncomplicated; Z88.0 Allergy status to penicillin; Z88.2 Allergy status to sulfonamides; Z88.8 Allergy status to other drugs, medicaments and biological substances; Z53.21 Procedure and treatment not carried out due to patient leaving prior to being seen by health care provider

== ENCOUNTER 2021-04-27 07:29 | Emergency (ER) | payer OTHER ==
[~2021-04-27] VITALS: Ht 152.4 cm; Wt 77.0 kg
[~2021-04-27 07:29] MED LIST changes: +METR-265 PO
[2021-04-27 08:30] VITALS: BP 131/62
== END 2021-04-27 09:51 | disposition home or self-care (01) ==
LOC: M ED 07:29
DX: F19.10 Other psychoactive substance abuse, uncomplicated (principal); B18.2 Chronic viral hepatitis C; F17.200 Nicotine dependence, unspecified, uncomplicated; Z88.0 Allergy status to penicillin; Z88.2 Allergy status to sulfonamides; Z88.8 Allergy status to other drugs, medicaments and biological substances; Z79.899 Other long term (current) drug therapy

== ENCOUNTER 2021-04-27 21:43 | Emergency (ER) | payer OTHER ==
[~2021-04-27] VITALS: Ht 152.4 cm; Wt 73.4 kg
[2021-04-27] MEDS ORDERED: HALOPERIDOL 5MG/ML VIAL (J1630 PER 1) IM ONE (22:10)
[2021-04-27] MEDS ORDERED: diphenhydrAMINE 50MG/ML VIAL (J1200) IM ONE (22:10)
[2021-04-27] MEDS ORDERED: LORazepam 2 MG/ML VIAL IM ONE (22:10)
[2021-04-27 22:44] LABS: HEMATOCRIT 40.4 % (36.0-47.0); HEMOGLOBIN 13.5 g/dl (12.0-15.5); MEAN CORPUSCULAR HEMOGLOBIN 30.2 pg (27.0-33.0); MEAN CORPUSCULAR HGB CONC 33.4 g/dl (32.0-36.5); MEAN CORPUSCULAR VOLUME 90.4 fl (80.0-96.0); PLATELET COUNT, AUTOMATED 350 10^3/uL (150-450); RED BLOOD COUNT 4.47 10^6/uL (4.00-5.40); WHITE BLOOD COUNT 7.7 10^3/uL (4.0-10.0)
[2021-04-27 23:20] LABS: ACETAMINOPHEN LEVEL < 2.0 UG/ML (10.0-30.0); ALBUMIN 4.1 GM/DL (3.2-5.2); ALT/SGPT 39 U/L (12-78); BILIRUBIN,DIRECT 0.1 MG/DL (0.0-0.2); BILIRUBIN,TOTAL 0.3 MG/DL (0.2-1.0); BLOOD UREA NITROGEN 17 MG/DL (7-18); CALCIUM LEVEL 9.8 MG/DL (8.5-10.1); CARBON DIOXIDE LEVEL 25 MEQ/L (21-32); CHLORIDE LEVEL 105 MEQ/L (98-107); ETHYL ALCOHOL (ETHANOL) < 0.003 % (0.000-0.010); GLOMERULAR FILTRATION RATE > 60.0 (>60); GLUCOSE, FASTING 105 MG/DL (70-100); POTASSIUM SERUM 3.9 MEQ/L (3.5-5.1); SALICYLATE LEVEL 3.1 MG/DL (5.0-30.0); SODIUM LEVEL 139 MEQ/L (136-145); TOTAL PROTEIN 7.9 GM/DL (6.4-8.2)
[2021-04-27 23:28] LABS: HCG, SERUM QUALITATIVE NEGATIVE (NEGATIVE)
[2021-04-28] MEDS ORDERED: HOME MED LIST COMPLETE! XX SCH (12:10)
[2021-04-28] MEDS ORDERED: METHADONE 10 MG TAB (S0109) PO ONE (16:35)
[2021-04-28 16:47] LABS: AMPHETAMINES LEVEL URINE POSITIVE (NEGATIVE); BARBITURATES URINE NEGATIVE (NEGATIVE); BENZODIAZEPINES URINE NEGATIVE (NEGATIVE); CANNABINOIDS URINE NEGATIVE (NEGATIVE); COCAINE METABOLITE URINE NEGATIVE (NEGATIVE); METHADONE URINE POSITIVE (NEGATIVE); OPIATES URINE NEGATIVE (NEGATIVE); PHENCYCLIDINE URINE NEGATIVE (NEGATIVE)
[2021-04-28 18:11] LABS: RSV AMPLIFICATION NEGATIVE (NEGATIVE)
[2021-04-29] MEDS: METHADONE 10 MG TAB (S0109) PO SCH (09:00)
[2021-04-30] MEDS: METHADONE 10 MG TAB (S0109) PO SCH (09:00)
[2021-04-30 16:16] LABS: RSV AMPLIFICATION NEGATIVE (NEGATIVE)
[2021-04-30] MEDS ORDERED: LORazepam 1 MG TAB PO STA (19:25)
[2021-05-01] MEDS: METHADONE 10 MG TAB (S0109) PO SCH (09:08)
[2021-05-01 14:13] VITALS: BP 123/71
== END 2021-05-01 14:17 ==
LOC: M ED 21:43
DX: F31.9 Bipolar disorder, unspecified (principal)
CPT/HCPCS: 36415; 80048; 80076; 80143; 80307; 82077; 84443; 84703; 85027; 87631; 93005; 96372; 99285; J1200; J1630; J2060

== ENCOUNTER 2021-05-09 13:33 | Inpatient (IN) | payer MEDICAID, OTHER, SELFPAY ==
[~2021-05-09] VITALS: Ht 152.4 cm; Wt 74.0 kg
[2021-05-09 15:44] LABS: HEMATOCRIT 36.1 % (36.0-47.0); HEMOGLOBIN 12.1 g/dl (12.0-15.5); MEAN CORPUSCULAR HEMOGLOBIN 30.5 pg (27.0-33.0); MEAN CORPUSCULAR HGB CONC 33.5 g/dl (32.0-36.5); MEAN CORPUSCULAR VOLUME 90.9 fl (80.0-96.0); PLATELET COUNT, AUTOMATED 325 10^3/uL (150-450); RED BLOOD COUNT 3.97 10^6/uL (4.00-5.40)
[2021-05-09 16:22] LABS: ACETAMINOPHEN LEVEL 21.9 UG/ML (10.0-30.0); ALBUMIN 3.7 GM/DL (3.2-5.2); ALT/SGPT 116 U/L (12-78); BILIRUBIN,DIRECT 0.1 MG/DL (0.0-0.2); BILIRUBIN,TOTAL 0.2 MG/DL (0.2-1.0); BLOOD UREA NITROGEN 22 MG/DL (7-18); CARBON DIOXIDE LEVEL 29 MEQ/L (21-32); CHLORIDE LEVEL 107 MEQ/L (98-107); CREATININE FOR GFR 0.77 MG/DL (0.55-1.30); ETHYL ALCOHOL (ETHANOL) 0.003 % (0.000-0.010); GLOMERULAR FILTRATION RATE > 60.0 (>60); GLUCOSE, FASTING 114 MG/DL (70-100); POTASSIUM SERUM 4.2 MEQ/L (3.5-5.1); SALICYLATE LEVEL 2.5 MG/DL (5.0-30.0); SODIUM LEVEL 140 MEQ/L (136-145); THYROID STIMULATING HORMONE 0.316 uIU/ML (0.358-3.740); TOTAL PROTEIN 6.9 GM/DL (6.4-8.2)
[2021-05-09 16:33] LABS: AMPHETAMINES LEVEL URINE POSITIVE (NEGATIVE); BARBITURATES URINE NEGATIVE (NEGATIVE); BENZODIAZEPINES URINE NEGATIVE (NEGATIVE); CANNABINOIDS URINE POSITIVE (NEGATIVE); COCAINE METABOLITE URINE NEGATIVE (NEGATIVE); METHADONE URINE POSITIVE (NEGATIVE); OPIATES URINE NEGATIVE (NEGATIVE); PHENCYCLIDINE URINE NEGATIVE (NEGATIVE)
[2021-05-09] MEDS ORDERED: D5W IV ONE ×2 (17:30→23:00)
[2021-05-09] MEDS ORDERED: ACETYLCYSTEINE IV ONE ×2 (17:30→23:00)
[2021-05-09] MEDS ORDERED: NS 1,000 ML IV ONE (18:05)
[2021-05-09 18:28] LABS: CK-MB VALUE MASS 3.2 NG/ML (<3.6); MB/CK RELATIVE INDEX 1.2 (< OR =4)
[2021-05-09 18:59] LABS: RSV AMPLIFICATION NEGATIVE (NEGATIVE)
[2021-05-09] MEDS ORDERED: ACETYLCYSTEINE 3,700 MG in D5W 500 ML IV ONE (19:00)
[2021-05-09] MEDS ORDERED: LEVE10003 PO (19:25)
[2021-05-09] MEDS ORDERED: NS 1,000 ML IV SCH (19:25)
[2021-05-09] MEDS ORDERED: OLAN20TA14 PO (19:25)
[2021-05-09] MEDS ORDERED: COMMENTS (19:31)
[2021-05-09] MEDS ORDERED: HOME MED LIST COMPLETE! XX SCH (19:35)
[2021-05-09] MEDS ORDERED: LORazepam 2 MG/ML VIAL IM STA (21:25)
[2021-05-09] MEDS ORDERED: LORazepam 2 MG/ML VIAL As Ordered ONE (21:28)
[2021-05-09 21:30] VITALS: BP 132/87
[2021-05-09 21:34] VITALS: BP 132/87
[2021-05-09 23:00] VITALS: BP 136/58
[2021-05-09 23:16] LABS: ALBUMIN 3.7 GM/DL (3.2-5.2); ALT/SGPT 107 U/L (12-78); BILIRUBIN,DIRECT < 0.1 MG/DL (0.0-0.2); BILIRUBIN,TOTAL 0.4 MG/DL (0.2-1.0); BLOOD UREA NITROGEN 17 MG/DL (7-18); CARBON DIOXIDE LEVEL 26 MEQ/L (21-32); CHLORIDE LEVEL 108 MEQ/L (98-107); CREATININE FOR GFR 0.71 MG/DL (0.55-1.30); GLOMERULAR FILTRATION RATE > 60.0 (>60); GLUCOSE, FASTING 105 MG/DL (70-100); SODIUM LEVEL 143 MEQ/L (136-145); TOTAL PROTEIN 7.1 GM/DL (6.4-8.2)
[2021-05-10] VITALS: BP 103/55
[2021-05-10] MEDS ORDERED: RAMELTEON 8 MG TAB (ROZEREM) PO ONE (00:40)
[2021-05-10] MEDS ORDERED: levETIRAcetam 250MG TABLET (KEPPRA) PO ONE (00:45)
[2021-05-10 04:30] LABS: HEMOGLOBIN 11.8 g/dl (12.0-15.5); MEAN CORPUSCULAR HEMOGLOBIN 30.4 pg (27.0-33.0); MEAN CORPUSCULAR HGB CONC 33.7 g/dl (32.0-36.5); MEAN CORPUSCULAR VOLUME 90.2 fl (80.0-96.0); PLATELET COUNT, AUTOMATED 307 10^3/uL (150-450); RED BLOOD COUNT 3.88 10^6/uL (4.00-5.40); WHITE BLOOD COUNT 7.7 10^3/uL (4.0-10.0)
[2021-05-10 04:55] LABS: ALBUMIN 3.4 GM/DL (3.2-5.2); ALT/SGPT 93 U/L (12-78); BILIRUBIN,TOTAL 0.3 MG/DL (0.2-1.0); BLOOD UREA NITROGEN 17 MG/DL (7-18); CALCIUM LEVEL 8.6 MG/DL (8.5-10.1); CARBON DIOXIDE LEVEL 28 MEQ/L (21-32); CHLORIDE LEVEL 109 MEQ/L (98-107); CREATININE FOR GFR 0.52 MG/DL (0.55-1.30); GLOMERULAR FILTRATION RATE > 60.0 (>60); GLUCOSE, FASTING 73 MG/DL (70-100); MAGNESIUM LEVEL 2.1 MG/DL (1.8-2.4); POTASSIUM SERUM 3.4 MEQ/L (3.5-5.1); SODIUM LEVEL 142 MEQ/L (136-145); TOTAL PROTEIN 6.7 GM/DL (6.4-8.2)
[2021-05-10] MEDS: HEPARIN SOD (PORCINE) 5000UNITS/ML 1ML VIAL/SYRINGE SC SCH ×4 (05:37→21:18)
[2021-05-10 08:00] VITALS: BP 108/57
[2021-05-10] MEDS: levETIRAcetam 250MG TABLET (KEPPRA) PO SCH ×2 (08:59→20:55)
[2021-05-10 14:00] VITALS: BP 104/62
[2021-05-10 20:00] VITALS: BP 103/52
[2021-05-10] MEDS ORDERED: PILL CUTTER 1 EACH XX PRN (20:25)
[2021-05-10] MEDS: traZODone 100 MG TAB PO PRN (20:53)
[2021-05-10] MEDS: QUEtiapine FUMARATE 100 MG TAB PO SCH (20:53)
[2021-05-10] MEDS ORDERED: GABAPENTIN 300 MG CAP PO ONE (23:40)
[2021-05-11 04:13] VITALS: BP 104/53
[2021-05-11] MEDS: HEPARIN SOD (PORCINE) 5000UNITS/ML 1ML VIAL/SYRINGE SC SCH ×3 (06:45→21:16)
[2021-05-11] MEDS ORDERED: POTASSIUM CHLORIDE 10MEQ SR TABLET PO ONE (07:45)
[2021-05-11 08:00] VITALS: BP 109/52
[2021-05-11] MEDS: levETIRAcetam 250MG TABLET (KEPPRA) PO SCH ×2 (08:16→21:10)
[2021-05-11] MEDS ORDERED: SENNA 8.6 MG TAB (SENOKOT) PO PRN (08:20)
[2021-05-11] MEDS ORDERED: SUMAtriptan SUCCINATE 25 MG TAB PO PRN (08:20)
[2021-05-11] MEDS: GABAPENTIN 400MG CAP PO SCH ×3 (08:37→21:10)
[2021-05-11] MEDS: OMEPRAZOLE 20MG CAP PO SCH (08:37)
[2021-05-11] MEDS: METHADONE 10 MG TAB (S0109) PO SCH (13:19)
[2021-05-11 14:00] VITALS: BP 104/65
[2021-05-11 20:00] VITALS: BP 121/78
[2021-05-11] MEDS: LORATADINE 10 MG TAB PO SCH (21:09)
[2021-05-11] MEDS: traZODone 100 MG TAB PO PRN (21:10)
[2021-05-11] MEDS: QUEtiapine FUMARATE 100 MG TAB PO SCH (21:10)
[2021-05-12 04:00] VITALS: BP 103/53
[2021-05-12] MEDS: HEPARIN SOD (PORCINE) 5000UNITS/ML 1ML VIAL/SYRINGE SC SCH ×3 (06:30→21:26)
[2021-05-12 08:00] VITALS: BP 104/65
[2021-05-12] MEDS: levETIRAcetam 250MG TABLET (KEPPRA) PO SCH ×2 (08:26→20:35)
[2021-05-12] MEDS: OMEPRAZOLE 20MG CAP PO SCH (08:26)
[2021-05-12] MEDS: METHADONE 10 MG TAB (S0109) PO SCH (08:27)
[2021-05-12] MEDS: GABAPENTIN 400MG CAP PO SCH ×3 (08:27→20:35)
[2021-05-12] MEDS: FUROSEMIDE 20 MG TAB PO SCH (09:00)
[2021-05-12] MEDS: NICOTINE POLACRILEX 2 MG GUM PO PRN (09:07)
[2021-05-12 12:00] VITALS: BP 111/68
[2021-05-12] MEDS ORDERED: ALBUTEROL 90 MCG/ACT 8GM HFA INHALER INH PRN (14:25)
[2021-05-12] MEDS ORDERED: cloNIDine 0.2 MG TAB PO PRN (14:25)
[2021-05-12 14:49] VITALS: BP 111/64
[2021-05-12 16:00] VITALS: BP 110/70
[2021-05-12 18:00] VITALS: BP 122/64
[2021-05-12] MEDS: LORATADINE 10 MG TAB PO SCH (20:35)
[2021-05-12] MEDS: QUEtiapine FUMARATE 100 MG TAB PO SCH (20:35)
[2021-05-12] MEDS: DOCUSATE SODIUM 100MG CAPSULE PO SCH (20:35)
[2021-05-13] VITALS: BP 98/44
[2021-05-13] MEDS: HEPARIN SOD (PORCINE) 5000UNITS/ML 1ML VIAL/SYRINGE SC SCH (05:41)
[2021-05-13 08:00] VITALS: BP 93/54
[2021-05-13] MEDS: NICOTINE POLACRILEX 2 MG GUM PO PRN (08:03)
[2021-05-13] MEDS: levETIRAcetam 250MG TABLET (KEPPRA) PO SCH (08:03)
[2021-05-13] MEDS: GABAPENTIN 400MG CAP PO SCH (08:03)
[2021-05-13] MEDS: OMEPRAZOLE 20MG CAP PO SCH (08:04)
[2021-05-13] MEDS: METHADONE 10 MG TAB (S0109) PO SCH (08:04)
[2021-05-13] MEDS: DOCUSATE SODIUM 100MG CAPSULE PO SCH (08:05)
[2021-05-13] MEDS: FUROSEMIDE 20 MG TAB PO SCH (08:05)
== END 2021-05-13 08:42 | DRG 812 ==
LOC: M ED 13:33 → M ED INP 13:34 → M ICU 21:30 → OBSVTOIN 05-12 15:13
PROVIDERS: ADMIT Internal Medicine; ATTEND Internal Medicine
DX: T39.1X2A Poisoning by 4-Aminophenol derivatives, intentional self-harm, initial encounter (principal); Z78.1 Physical restraint status; F32.A Depression, unspecified; F25.0 Schizoaffective disorder, bipolar type; F41.9 Anxiety disorder, unspecified; F11.10 Opioid abuse, uncomplicated; M79.2 Neuralgia and neuritis, unspecified; F12.10 Cannabis abuse, uncomplicated; G40.909 Epilepsy, unspecified, not intractable, without status epilepticus; G43.909 Migraine, unspecified, not intractable, without status migrainosus; F15.159 Other stimulant abuse with stimulant-induced psychotic disorder, unspecified; Z86.16 Personal history of COVID-19; F17.200 Nicotine dependence, unspecified, uncomplicated; Z79.899 Other long term (current) drug therapy; Z88.0 Allergy status to penicillin; Z88.2 Allergy status to sulfonamides; Z88.8 Allergy status to other drugs, medicaments and biological substances; Z81.8 Family history of other mental and behavioral disorders; Z81.3 Family history of other psychoactive substance abuse and dependence

== ENCOUNTER 2021-05-21 09:42 | Emergency (ER) | payer OTHER ==
[~2021-05-21] VITALS: Ht 154.9 cm; Wt 79.2 kg
[2021-05-21 09:42] VITALS: BP 185/99
[~2021-05-21 09:42] MED LIST changes: +COMMENTS; +OLAN20TA14 PO
== END 2021-05-21 11:13 | disposition left against medical advice (07) ==
LOC: M ED 09:42
DX: F19.10 Other psychoactive substance abuse, uncomplicated (principal); F17.200 Nicotine dependence, unspecified, uncomplicated; B18.2 Chronic viral hepatitis C; Z53.20 Procedure and treatment not carried out because of patient's decision for unspecified reasons; Z88.0 Allergy status to penicillin; Z88.1 Allergy status to other antibiotic agents; Z88.2 Allergy status to sulfonamides; Z88.8 Allergy status to other drugs, medicaments and biological substances

== ENCOUNTER 2021-05-22 17:15 | Emergency (ER) | payer OTHER ==
[2021-05-22 17:45] VITALS: BP 148/91
== END 2021-05-22 19:38 | disposition left against medical advice (07) ==
LOC: M ED 17:15
DX: Z53.29 Procedure and treatment not carried out because of patient's decision for other reasons (principal)

== ENCOUNTER 2021-07-11 23:22 | Emergency (ER) | payer OTHER ==
[~2021-07-11] VITALS: Ht 152.4 cm; Wt 78.4 kg
[~2021-07-11 23:22] MED LIST changes: -BUPR200T2 PO; +BUPR200T41 PO
[2021-07-12 01:42] LABS: HEMATOCRIT 36.6 % (36.0-47.0); HEMOGLOBIN 12.1 g/dl (12.0-15.5); MEAN CORPUSCULAR HGB CONC 33.1 g/dl (32.0-36.5); MEAN CORPUSCULAR VOLUME 93.8 fl (80.0-96.0); PLATELET COUNT, AUTOMATED 307 10^3/uL (150-450); WHITE BLOOD COUNT 7.2 10^3/uL (4.0-10.0)
[2021-07-12 02:18] LABS: ALBUMIN 3.7 GM/DL (3.2-5.2); ALT/SGPT 44 U/L (12-78); BILIRUBIN,TOTAL 0.2 MG/DL (0.2-1.0); BLOOD UREA NITROGEN 14 MG/DL (7-18); CALCIUM LEVEL 9.6 MG/DL (8.5-10.1); CARBON DIOXIDE LEVEL 26 MEQ/L (21-32); CHLORIDE LEVEL 107 MEQ/L (98-107); CREATININE FOR GFR 0.85 MG/DL (0.55-1.30); GLOMERULAR FILTRATION RATE > 60.0 (>60); GLUCOSE, FASTING 100 MG/DL (70-100); HCG, SERUM QUANTITATIVE < 1.0 MIU/ML; POTASSIUM SERUM 4.6 MEQ/L (3.5-5.1); SODIUM LEVEL 139 MEQ/L (136-145); TOTAL PROTEIN 7.3 GM/DL (6.4-8.2)
[2021-07-12 08:31] VITALS: BP 165/80
== END 2021-07-12 08:48 | disposition home or self-care (01) ==
LOC: M ED 23:22
DX: J06.9 Acute upper respiratory infection, unspecified (principal); Z86.16 Personal history of COVID-19; F19.10 Other psychoactive substance abuse, uncomplicated; Z88.0 Allergy status to penicillin; Z88.8 Allergy status to other drugs, medicaments and biological substances; Z88.2 Allergy status to sulfonamides; Z79.899 Other long term (current) drug therapy

== ENCOUNTER 2021-08-27 17:51 | Emergency (ER) | payer OTHER ==
[2021-08-27 18:07] VITALS: BP 124/78
[2021-08-27] MEDS ORDERED: IBUPROFEN 600MG TAB PO ONE (18:15)
== END 2021-08-27 18:28 | disposition home or self-care (01) ==
LOC: M ED 17:51
DX: F45.0 Somatization disorder (principal); F19.288 Other psychoactive substance dependence with other psychoactive substance-induced disorder; Z79.899 Other long term (current) drug therapy; Z79.51 Long term (current) use of inhaled steroids; Z88.0 Allergy status to penicillin; Z88.1 Allergy status to other antibiotic agents; Z88.2 Allergy status to sulfonamides; Z88.8 Allergy status to other drugs, medicaments and biological substances

== ENCOUNTER 2021-08-28 03:25 | Emergency (ER) | payer OTHER ==
[~2021-08-28] VITALS: Ht 152.4 cm; Wt 79.5 kg
[2021-08-28 03:26] VITALS: BP 135/85
== END 2021-08-28 06:11 | disposition left against medical advice (07) ==
LOC: M ED 03:25
DX: Z53.21 Procedure and treatment not carried out due to patient leaving prior to being seen by health care provider (principal)

== ENCOUNTER 2021-08-28 19:16 | Emergency (ER) | payer OTHER ==
[~2021-08-28] VITALS: Ht 152.4 cm; Wt 80.1 kg
[2021-08-28 19:22] VITALS: BP 147/93
== END 2021-08-29 02:59 | disposition home or self-care (01) ==
LOC: M ED 19:16
DX: F45.0 Somatization disorder (principal); B18.2 Chronic viral hepatitis C; E03.9 Hypothyroidism, unspecified; F17.200 Nicotine dependence, unspecified, uncomplicated; F19.10 Other psychoactive substance abuse, uncomplicated; Z88.0 Allergy status to penicillin; Z88.1 Allergy status to other antibiotic agents; Z88.2 Allergy status to sulfonamides; Z88.8 Allergy status to other drugs, medicaments and biological substances

== ENCOUNTER 2021-08-30 13:45 | Emergency (ER) | payer OTHER ==
[~2021-08-30] VITALS: Ht 152.4 cm; Wt 81.0 kg
[2021-08-30 18:15] LABS: AMPHETAMINES LEVEL URINE NEGATIVE (NEGATIVE); BARBITURATES URINE NEGATIVE (NEGATIVE); BENZODIAZEPINES URINE NEGATIVE (NEGATIVE); CANNABINOIDS URINE NEGATIVE (NEGATIVE); COCAINE METABOLITE URINE NEGATIVE (NEGATIVE); METHADONE URINE POSITIVE (NEGATIVE); OPIATES URINE NEGATIVE (NEGATIVE); PHENCYCLIDINE URINE NEGATIVE (NEGATIVE)
[2021-08-30 19:08] LABS: RSV AMPLIFICATION NEGATIVE (NEGATIVE)
[2021-08-30 20:06] LABS: HEMATOCRIT 36.3 % (36.0-47.0); HEMOGLOBIN 12.5 g/dl (12.0-15.5); MEAN CORPUSCULAR HEMOGLOBIN 30.6 pg (27.0-33.0); MEAN CORPUSCULAR HGB CONC 34.4 g/dl (32.0-36.5); MEAN CORPUSCULAR VOLUME 88.8 fl (80.0-96.0); PLATELET COUNT, AUTOMATED 269 10^3/uL (150-450); RED BLOOD COUNT 4.09 10^6/uL (4.00-5.40); WHITE BLOOD COUNT 5.8 10^3/uL (4.0-10.0)
[2021-08-30 20:54] LABS: HCG, SERUM QUALITATIVE NEGATIVE (NEGATIVE)
[2021-08-30 20:58] LABS: ACETAMINOPHEN LEVEL < 2.0 UG/ML (10.0-30.0); ALT/SGPT 57 U/L (12-78); BILIRUBIN,DIRECT < 0.1 MG/DL (0.0-0.2); BILIRUBIN,TOTAL 0.3 MG/DL (0.2-1.0); BLOOD UREA NITROGEN 13 MG/DL (7-18); CALCIUM LEVEL 9.2 MG/DL (8.5-10.1); CARBON DIOXIDE LEVEL 28 MEQ/L (21-32); CHLORIDE LEVEL 104 MEQ/L (98-107); CREATININE FOR GFR 0.88 MG/DL (0.55-1.30); ETHYL ALCOHOL (ETHANOL) < 0.003 % (0.000-0.010); GLOMERULAR FILTRATION RATE > 60.0 (>60); GLUCOSE, FASTING 141 MG/DL (70-100); POTASSIUM SERUM 4.3 MEQ/L (3.5-5.1); SALICYLATE LEVEL 2.6 MG/DL (5.0-30.0); SODIUM LEVEL 139 MEQ/L (136-145); TOTAL PROTEIN 7.6 GM/DL (6.4-8.2)
[2021-08-31] MEDS ORDERED: LORazepam 2 MG TAB PO STA
[2021-08-31] MEDS ORDERED: LORazepam 1 MG TAB PO STA (01:29)
[2021-08-31] MEDS ORDERED: QUEtiapine FUMARATE 200 MG TAB PO ONE (03:35)
[2021-08-31] MEDS ORDERED: QUEtiapine FUMARATE 50MG TAB PO ONE (03:35)
[2021-08-31] MEDS ORDERED: traZODone 100 MG TAB PO ONE (04:20)
[2021-08-31] MEDS ORDERED: CLON0.2T PO (18:06)
[2021-08-31] MEDS ORDERED: INVE234I SQ (18:06)
[2021-08-31] MEDS ORDERED: PATIENT COMMENT (18:06)
[2021-08-31] MEDS ORDERED: ATOM40CA9 PO (18:06)
[2021-08-31] MEDS ORDERED: GABA800T4 PO (18:06)
[2021-08-31] MEDS ORDERED: DOXE50CA PO (18:06)
[2021-08-31] MEDS ORDERED: SUMA25TA3 PO (18:06)
[2021-08-31] MEDS ORDERED: PROAAER10 INH (18:06)
[2021-08-31] MEDS ORDERED: BUSP10TA PO (18:06)
[2021-08-31] MEDS ORDERED: BENZ-52 PO (18:06)
[2021-08-31] MEDS ORDERED: KEPP10002 PO (18:06)
[2021-09-01] MEDS ORDERED: cloNIDine 0.2 MG TAB PO SCH (09:00)
[2021-09-01] MEDS ORDERED: METHADONE 10MG TAB PO SCH (09:00)
[2021-09-01] MEDS ORDERED: busPIRone 10 MG TAB PO SCH (09:00)
[2021-09-01 10:42] VITALS: BP 125/85
[2021-09-01] MEDS: GABAPENTIN 400MG CAP PO SCH ×2 (10:42→17:36)
[2021-09-01] MEDS ORDERED: METH10CO PO (10:50)
[2021-09-01] MEDS ORDERED: HOME MED LIST COMPLETE! XX SCH (11:35)
[2021-09-01] MEDS ORDERED: GABA800T4 PO (15:40)
[2021-09-01 19:12] VITALS: BP 134/68
== END 2021-09-01 19:09 | disposition short-term general hospital (02) ==
LOC: M ED 13:45
DX: F29 Unspecified psychosis not due to a substance or known physiological condition (principal); F25.0 Schizoaffective disorder, bipolar type; R68.2 Dry mouth, unspecified; F17.200 Nicotine dependence, unspecified, uncomplicated; B18.2 Chronic viral hepatitis C; Z88.0 Allergy status to penicillin; Z88.1 Allergy status to other antibiotic agents; Z88.2 Allergy status to sulfonamides; Z88.8 Allergy status to other drugs, medicaments and biological substances
CPT/HCPCS: 80048; 80076; 80143; 80307; 82077; 84443; 84703; 85027; 87631; 93005; 99285; S0109

== ENCOUNTER 2021-11-30 12:00 | Emergency (ER) | payer OTHER ==
[~2021-11-30] VITALS: Ht 152.4 cm; Wt 84.7 kg
[~2021-11-30 12:00] MED LIST changes: +DOXE50CA PO; +INVE234I SQ
[2021-11-30] MEDS ORDERED: ALBU8.5H (12:07)
[2021-11-30] MEDS ORDERED: SUMA25TA3 (12:07)
[2021-11-30] MEDS ORDERED: LEVE10003 (12:07)
[2021-11-30] MEDS ORDERED: KETOROLAC 30 MG/ML 1ML VIAL IV ONE (13:40)
[2021-11-30] MEDS ORDERED: NS 1,000 ML IV ONE (13:40)
[2021-11-30] MEDS ORDERED: DALBAVANCIN 1,500 MG in D5W 250 ML IV ONE (14:55)
[2021-11-30 15:09] LABS: BASO # 0.1 10^3/uL (0.0-0.2); BASO % 0.5 % (0.0-1.0); EOS # 0.1 10^3/uL (0.0-0.5); EOS % 0.8 % (0.0-3.0); HEMATOCRIT 36.2 % (36.0-47.0); HEMOGLOBIN 11.6 g/dl (12.0-15.5); LYMPH # 4.5 10^3/uL (1.5-5.0); LYMPH % 47.4 % (24.0-44.0); MEAN CORPUSCULAR HEMOGLOBIN 30.4 pg (27.0-33.0); MONO % 10.5 % (2.0-8.0); NEUTROPHILS # 3.8 10^3/uL (1.5-8.5); NEUTROPHILS % 40.3 % (36.0-66.0); PLATELET COUNT, AUTOMATED 247 10^3/uL (150-450); RED BLOOD COUNT 3.81 10^6/uL (4.00-5.40); WHITE BLOOD COUNT 9.4 10^3/uL (4.0-10.0)
[2021-11-30 17:25] VITALS: BP 119/59
== END 2021-11-30 17:10 | disposition home or self-care (01) ==
LOC: M ED 12:00
DX: F19.10 Other psychoactive substance abuse, uncomplicated (principal); R22.43 Localized swelling, mass and lump, lower limb, bilateral; B95.8 Unspecified staphylococcus as the cause of diseases classified elsewhere; R56.9 Unspecified convulsions; F17.200 Nicotine dependence, unspecified, uncomplicated; Z88.0 Allergy status to penicillin; Z88.2 Allergy status to sulfonamides; Z88.8 Allergy status to other drugs, medicaments and biological substances; Z79.899 Other long term (current) drug therapy; Z79.51 Long term (current) use of inhaled steroids
CPT/HCPCS: 73552; 80047; 83605; 84702; 85025; 86140; 87040; 87077; 87186; 96361; 96365; 96375; 99283; J0875; J1885

== ENCOUNTER 2021-12-03 15:29 | Emergency (ER) | payer OTHER ==
[~2021-12-03] VITALS: Ht 154.9 cm; Wt 86.1 kg
[~2021-12-03 15:29] MED LIST changes: +ALBU8.5H; +SUMA25TA3
[2021-12-03 16:12] LABS: BASO % 0.5 % (0.0-1.0); EOS # 0.2 10^3/uL (0.0-0.5); EOS % 2.5 % (0.0-3.0); HEMATOCRIT 37.1 % (36.0-47.0); HEMOGLOBIN 11.6 g/dl (12.0-15.5); LYMPH # 2.9 10^3/uL (1.5-5.0); LYMPH % 44.6 % (24.0-44.0); MEAN CORPUSCULAR HEMOGLOBIN 29.4 pg (27.0-33.0); MEAN CORPUSCULAR HGB CONC 31.3 g/dl (32.0-36.5); MEAN CORPUSCULAR VOLUME 94.2 fl (80.0-96.0); MONO # 0.5 10^3/uL (0.0-0.8); NEUTROPHILS # 2.8 10^3/uL (1.5-8.5); NEUTROPHILS % 42.3 % (36.0-66.0); PLATELET COUNT, AUTOMATED 296 10^3/uL (150-450); RED BLOOD COUNT 3.94 10^6/uL (4.00-5.40); WHITE BLOOD COUNT 6.5 10^3/uL (4.0-10.0)
[2021-12-03 19:08] VITALS: BP 116/64
== END 2021-12-03 19:10 | disposition home or self-care (01) ==
LOC: M ED 15:29
DX: S70.11XD Contusion of right thigh, subsequent encounter (principal); B95.8 Unspecified staphylococcus as the cause of diseases classified elsewhere; F19.10 Other psychoactive substance abuse, uncomplicated; F25.9 Schizoaffective disorder, unspecified; R56.9 Unspecified convulsions; G43.909 Migraine, unspecified, not intractable, without status migrainosus; B18.2 Chronic viral hepatitis C; F17.200 Nicotine dependence, unspecified, uncomplicated; Z88.0 Allergy status to penicillin; Z88.2 Allergy status to sulfonamides; Z88.8 Allergy status to other drugs, medicaments and biological substances; Z79.51 Long term (current) use of inhaled steroids; Z79.899 Other long term (current) drug therapy

== ENCOUNTER 2021-12-06 18:48 | Emergency (ER) | payer OTHER ==
[~2021-12-06] VITALS: Ht 154.9 cm; Wt 79.5 kg
[2021-12-06 18:48] VITALS: BP 118/67
== END 2021-12-06 23:15 | disposition left against medical advice (07) ==
LOC: M ED 18:48
DX: Z53.21 Procedure and treatment not carried out due to patient leaving prior to being seen by health care provider (principal)

== ENCOUNTER 2021-12-11 13:24 | Emergency (ER) | payer OTHER ==
[~2021-12-11] VITALS: Ht 154.9 cm; Wt 83.8 kg
[2021-12-11] MEDS ORDERED: DOXY-443 PO (17:17)
[2021-12-11 17:32] VITALS: BP 114/70
== END 2021-12-11 17:36 | disposition home or self-care (01) ==
LOC: M ED 13:24
DX: S71.101A Unspecified open wound, right thigh, initial encounter (principal); R56.9 Unspecified convulsions; E03.9 Hypothyroidism, unspecified; Z86.16 Personal history of COVID-19; F41.9 Anxiety disorder, unspecified; F20.9 Schizophrenia, unspecified; F19.10 Other psychoactive substance abuse, uncomplicated; F17.290 Nicotine dependence, other tobacco product, uncomplicated; E66.9 Obesity, unspecified; Z79.899 Other long term (current) drug therapy; Z88.0 Allergy status to penicillin; Z88.8 Allergy status to other drugs, medicaments and biological substances; Z88.2 Allergy status to sulfonamides

== ENCOUNTER 2022-01-30 21:28 | Emergency (ER) | payer OTHER ==
[~2022-01-30] VITALS: Ht 152.4 cm; Wt 86.8 kg
[~2022-01-30 21:28] MED LIST changes: -DOXY-350 PO; +DOXY-444 PO
[2022-01-31 01:39] VITALS: BP 119/62
[2022-02-01] MEDS ORDERED: BUSP15TA47 (13:01)
== END 2022-01-31 07:00 | disposition left against medical advice (07) ==
LOC: M ED 21:28
DX: Z53.21 Procedure and treatment not carried out due to patient leaving prior to being seen by health care provider (principal)

== ENCOUNTER 2022-02-01 12:48 | Emergency (ER) | payer OTHER ==
[~2022-02-01] VITALS: Ht 152.4 cm; Wt 86.8 kg
[2022-02-01] MEDS ORDERED: BUSP15TA47 (13:01)
[2022-02-01] MEDS ORDERED: BOOSTRIX/ADACEL VACCINE (DIPHTH/PERTUSS/ACELL/TETANUS) 0.5ML SYR IM.IMMUN ONE (13:15)
[2022-02-01] MEDS ORDERED: DALBAVANCIN 1,500 MG in D5W 250 ML IV ONE (13:15)
[2022-02-01 15:41] VITALS: BP 106/66
== END 2022-02-01 17:10 | disposition home or self-care (01) ==
LOC: M ED 12:48
DX: L03.115 Cellulitis of right lower limb (principal); F19.10 Other psychoactive substance abuse, uncomplicated; Z79.899 Other long term (current) drug therapy; Z88.0 Allergy status to penicillin; Z88.2 Allergy status to sulfonamides; Z88.8 Allergy status to other drugs, medicaments and biological substances
CPT/HCPCS: 90471; 90715; 96365; 99283; J0875

== ENCOUNTER → 2022-07-14 | Outpatient (REF) | payer OTHER ==
[~2022-07-14] MED LIST changes: -BENZ-52 PO; +BENZ1TAB5 PO; +BUSP15TA47; +FLUT50SP17; -FLUTISP; +NYST-38 PO; -NYST50SS PO
[2022-07-14 19:43] LABS: GC DNA AMPLIFICATION NEGATIVE (NEGATIVE)
== END ==
LOC: M LAB REF 16:37
PROVIDERS: ATTEND Surgery
DX: A64 Unspecified sexually transmitted disease (principal)

== ENCOUNTER 2022-12-01 18:18 | Emergency (ER) | payer OTHER ==
[~2022-12-01] VITALS: Ht 152.4 cm; Wt 97.0 kg
[~2022-12-01 18:18] MED LIST changes: -AMIT25TA17 PO; +AMIT25TA19 PO; -GABA-283 PO; +GABA-284 PO; +LORA-1041 PO; -LORA-674 PO; +SENN-111 PO; -SENN18TA PO
[2022-12-01 23:56] VITALS: BP 125/82; TEMP 97.6; O2SAT 96
== END 2022-12-02 03:51 | disposition left against medical advice (07) ==
LOC: M ED 18:18
DX: Z53.21 Procedure and treatment not carried out due to patient leaving prior to being seen by health care provider (principal)

== ENCOUNTER 2023-02-25 19:45 | Emergency (ER) | payer OTHER ==
[~2023-02-25] VITALS: Ht 152.4 cm; Wt 92.0 kg
[~2023-02-25 19:45] MED LIST changes: -DIPH-319 PO; +DIPH-429 PO; -FLUT50SP17; +FLUTISP
[2023-02-26] MEDS ORDERED: dexAMETHasone 4 MG TAB PO ONE (00:20)
[2023-02-26] MEDS ORDERED: CLINDAMYCIN 150MG CAPSULE PO ONE (00:20)
[2023-02-26 01:08] VITALS: BP 106/60; TEMP 97.8; O2SAT 100
== END 2023-02-26 01:10 | disposition home or self-care (01) ==
LOC: M ED 19:45
DX: K02.9 Dental caries, unspecified (principal); F17.210 Nicotine dependence, cigarettes, uncomplicated; Z88.0 Allergy status to penicillin; Z88.8 Allergy status to other drugs, medicaments and biological substances; Z88.2 Allergy status to sulfonamides; Z79.51 Long term (current) use of inhaled steroids; Z79.899 Other long term (current) drug therapy

== ENCOUNTER 2023-03-05 15:42 | Emergency (ER) | payer OTHER ==
[~2023-03-05] VITALS: Ht 152.4 cm; Wt 93.9 kg
[2023-03-05] MEDS ORDERED: GABA-284 (16:01)
[2023-03-05] MEDS ORDERED: dexAMETHasone 4 MG TAB PO ONE (23:15)
[2023-03-05] MEDS ORDERED: CLINDAMYCIN 150MG CAPSULE PO ONE (23:15)
[2023-03-05] MEDS ORDERED: CLEO300C2 PO (23:17)
[2023-03-05] MEDS ORDERED: KETO10TAB PO (23:17)
[2023-03-05 23:44] VITALS: BP 113/59; TEMP 97; O2SAT 99
== END 2023-03-05 23:54 | disposition home or self-care (01) ==
LOC: M ED 15:42
DX: K02.9 Dental caries, unspecified (principal); J06.9 Acute upper respiratory infection, unspecified; F41.9 Anxiety disorder, unspecified; F32.A Depression, unspecified; F20.9 Schizophrenia, unspecified; F19.10 Other psychoactive substance abuse, uncomplicated; Z86.19 Personal history of other infectious and parasitic diseases; F17.200 Nicotine dependence, unspecified, uncomplicated; Z79.899 Other long term (current) drug therapy; Z88.0 Allergy status to penicillin; Z88.2 Allergy status to sulfonamides; Z88.8 Allergy status to other drugs, medicaments and biological substances

== ENCOUNTER 2023-05-04 21:00 | Emergency (ER) | payer MEDICAID, SELFPAY ==
[~2023-05-04 21:00] MED LIST changes: +GABA-284; -MIRA1POW3 PO; +MIRA33506 PO; -RISP-10 PO; +RISP-105 PO; +RISP-106 PO; -RISP-8 PO; -RISP-9 PO; +RISP3TAB77 PO
[2023-05-04 21:07] VITALS: BP 144/84; TEMP 97; O2SAT 96
[2023-05-04 22:37] LABS: BASO % 0.3 % (0.0-1.0); EOS % 0.4 % (0.0-3.0); HEMATOCRIT 41.4 % (36.0-47.0); HEMOGLOBIN 13.3 g/dl (12.0-15.5); LYMPH # 1.9 10^3/uL (1.5-5.0); LYMPH % 20.8 % (24.0-44.0); MEAN CORPUSCULAR HEMOGLOBIN 29.7 pg (27.0-33.0); MEAN CORPUSCULAR HGB CONC 32.1 g/dl (32.0-36.5); MEAN CORPUSCULAR VOLUME 92.4 fl (80.0-96.0); MONO # 0.6 10^3/uL (0.0-0.8); MONO % 6.3 % (2.0-8.0); NEUTROPHILS # 6.5 10^3/uL (1.5-8.5); NEUTROPHILS % 71.9 % (36.0-66.0); PLATELET COUNT, AUTOMATED 275 10^3/uL (150-450); RED BLOOD COUNT 4.48 10^6/uL (4.00-5.40)
[2023-05-04 23:22] LABS: RSV AMPLIFICATION NEGATIVE (NEGATIVE)
[2023-05-04 23:52] LABS: BLOOD UREA NITROGEN 10 MG/DL (9-23); CALCIUM LEVEL 8.6 MG/DL (8.5-10.1); CARBON DIOXIDE LEVEL 24 MMOL/L (20-31); CHLORIDE LEVEL 106 MMOL/L (98-107); CK-MB VALUE MASS < 1.0 NG/ML (<3.6); CREATININE FOR GFR 0.62 MG/DL (0.55-1.30); GLOMERULAR FILTRATION RATE > 60.0 (>60); GLUCOSE, FASTING 96 MG/DL (60-100); SODIUM LEVEL 136 MMOL/L (136-145)
[2023-05-04 23:54] LABS: CPK CREATINE PHOSPHOKINASE 105 U/L (34-145); MB/CK RELATIVE INDEX 0.95 (< OR =4)
[2023-05-05 01:22] LABS: CK-MB VALUE MASS < 1.0 NG/ML (<3.6)
[2023-05-05 01:23] LABS: CPK CREATINE PHOSPHOKINASE 78 U/L (34-145); MB/CK RELATIVE INDEX 1.28 (< OR =4)
[2023-05-05] MEDS: levETIRAcetam 250MG TABLET (KEPPRA) PO ONE (01:47)
[2023-05-05] MEDS: GABAPENTIN 400MG CAP PO ONE (01:47)
== END 2023-05-05 02:13 | disposition home or self-care (01) ==
LOC: EDBD 21:00 → M ED 21:00
DX: R07.9 Chest pain, unspecified (principal); G40.89 Other seizures; F19.10 Other psychoactive substance abuse, uncomplicated; Z88.0 Allergy status to penicillin; Z88.2 Allergy status to sulfonamides; Z88.8 Allergy status to other drugs, medicaments and biological substances; Z79.899 Other long term (current) drug therapy

== ENCOUNTER 2023-05-07 15:14 | Emergency (ER) | payer MEDICAID, SELFPAY ==
[~2023-05-07] VITALS: Ht 152.4 cm; Wt 84.3 kg
[2023-05-07 19:56] LABS: BASO % 0.2 % (0.0-1.0); EOS % 0.1 % (0.0-3.0); HEMATOCRIT 35.9 % (36.0-47.0); LYMPH # 2.7 10^3/uL (1.5-5.0); LYMPH % 22.5 % (24.0-44.0); MEAN CORPUSCULAR HEMOGLOBIN 29.3 pg (27.0-33.0); MEAN CORPUSCULAR HGB CONC 33.4 g/dl (32.0-36.5); MEAN CORPUSCULAR VOLUME 87.6 fl (80.0-96.0); MONO # 0.7 10^3/uL (0.0-0.8); MONO % 5.5 % (2.0-8.0); NEUTROPHILS # 8.6 10^3/uL (1.5-8.5); NEUTROPHILS % 71.5 % (36.0-66.0); PLATELET COUNT, AUTOMATED 308 10^3/uL (150-450)
[2023-05-07] MEDS: ACETAMINOPHEN 500 MG TAB PO ONE (20:05)
[2023-05-07 20:08] LABS: ERYTHROCYTE SEDIMENTATION RATE 43 mm/hr (0-20)
[2023-05-07 20:11] LABS: BLOOD UREA NITROGEN 15 MG/DL (9-23); CALCIUM LEVEL 8.6 MG/DL (8.5-10.1); CARBON DIOXIDE LEVEL 25 MMOL/L (20-31); CHLORIDE LEVEL 103 MMOL/L (98-107); CREATININE FOR GFR 0.54 MG/DL (0.55-1.30); GLOMERULAR FILTRATION RATE > 60.0 (>60); GLUCOSE, FASTING 93 MG/DL (60-100); POTASSIUM SERUM 4.5 MMOL/L (3.5-5.1); SODIUM LEVEL 135 MMOL/L (136-145)
[2023-05-07] MEDS: DALBAVANCIN 1,500 MG in D5W 250 ML IV ONE (21:47)
[2023-05-08] MEDS ORDERED: levETIRAcetam **XR** 500 MG TABLET PO ONE (00:40)
[2023-05-08] MEDS ORDERED: KEPP500T13 PO (00:40)
[2023-05-08] MEDS ORDERED: GABA-284 PO (00:41)
[2023-05-08] MEDS ORDERED: KEPP10002 PO (00:45)
[2023-05-08] MEDS: levETIRAcetam 250MG TABLET (KEPPRA) PO ONE (02:02)
[2023-05-08] MEDS: GABAPENTIN 400MG CAP PO ONE (02:02)
[2023-05-08 02:17] VITALS: BP 123/68; TEMP 99.5; O2SAT 97
== END 2023-05-08 02:20 | disposition home or self-care (01) ==
LOC: M ED 15:14
DX: L03.90 Cellulitis, unspecified (principal); Z76.0 Encounter for issue of repeat prescription; F17.210 Nicotine dependence, cigarettes, uncomplicated; Z88.0 Allergy status to penicillin; Z88.8 Allergy status to other drugs, medicaments and biological substances; Z88.2 Allergy status to sulfonamides; Z79.899 Other long term (current) drug therapy
CPT/HCPCS: 80048; 83605; 85025; 85652; 86140; 87040; 96365; 99284; J0875

== ENCOUNTER 2023-05-25 17:25 | Emergency (ER) | payer SELFPAY ==
[~2023-05-25] VITALS: Ht 152.4 cm; Wt 84.5 kg
[~2023-05-25 17:25] MED LIST changes: +KEPP500T13 PO
[2023-05-25 17:26] VITALS: BP 117/54; TEMP 97.2; O2SAT 95
[2023-05-25 18:46] LABS: URINE PREG TEST NEGATIVE (NEGATIVE)
[2023-05-25] MEDS: PHENAZOPYRIDINE 100 MG TAB PO ONE (19:03)
[2023-05-25] MEDS: NITROFURANTOIN (MACROBID) 100 MG CAP PO ONE (19:03)
[2023-05-25] MEDS ORDERED: NITR1CAP11 PO (19:10)
[2023-05-25] MEDS ORDERED: PHEN-372 PO (19:10)
[2023-05-25 19:31] LABS: Trichomonas vaginalis (AMP) NOT DETECTED (NEGATIVE)
[2023-05-25 19:54] LABS: GC DNA AMPLIFICATION NEGATIVE (NEGATIVE)
== END 2023-05-25 19:17 | disposition home or self-care (01) ==
LOC: M ED 17:25
DX: N39.0 Urinary tract infection, site not specified (principal); G40.89 Other seizures; F17.210 Nicotine dependence, cigarettes, uncomplicated; F19.10 Other psychoactive substance abuse, uncomplicated; Z88.0 Allergy status to penicillin; Z88.8 Allergy status to other drugs, medicaments and biological substances; Z79.899 Other long term (current) drug therapy

== ENCOUNTER 2023-07-05 18:28 | Emergency (ER) | payer SELFPAY ==
[~2023-07-05] VITALS: Ht 152.4 cm; Wt 79.8 kg
[~2023-07-05 18:28] MED LIST changes: +DOXY-323 PO; +DOXY-440 PO; -DOXY-443 PO; -DOXY-444 PO; +NITR1CAP11 PO; +PHEN-372 PO
[2023-07-05 18:33] VITALS: BP 126/68; TEMP 96.8; O2SAT 100
[2023-07-05] MEDS ORDERED: CLEO300C2 PO (22:52)
[2023-07-05] MEDS: CLINDAMYCIN 150MG CAPSULE PO ONE (22:55)
[2023-07-05] MEDS: BENZOCAINE 20% GEL 9GM TUBE (ANBESOL MAX STRENGTH) TOP ONE (22:55)
== END 2023-07-05 23:02 | disposition home or self-care (01) ==
LOC: M ED 18:28
DX: K04.7 Periapical abscess without sinus (principal); E03.9 Hypothyroidism, unspecified; F17.210 Nicotine dependence, cigarettes, uncomplicated; F11.10 Opioid abuse, uncomplicated; Z88.0 Allergy status to penicillin; Z88.2 Allergy status to sulfonamides; Z88.8 Allergy status to other drugs, medicaments and biological substances; Z79.2 Long term (current) use of antibiotics

== ENCOUNTER 2023-07-23 07:29 | Emergency (ER) | payer SELFPAY ==
[~2023-07-23] VITALS: Ht 152.4 cm; Wt 79.0 kg
[2023-07-23 08:45] LABS: BASO % 0.3 % (0.0-1.0); EOS # 0.1 10^3/uL (0.0-0.5); EOS % 2.1 % (0.0-3.0); HEMATOCRIT 34.9 % (36.0-47.0); HEMOGLOBIN 11.5 g/dl (12.0-15.5); LYMPH # 2.9 10^3/uL (1.5-5.0); LYMPH % 42.9 % (24.0-44.0); MEAN CORPUSCULAR HEMOGLOBIN 28.7 pg (27.0-33.0); MONO # 0.7 10^3/uL (0.0-0.8); MONO % 9.7 % (2.0-8.0); NEUTROPHILS % 44.9 % (36.0-66.0); PLATELET COUNT, AUTOMATED 279 10^3/uL (150-450); RED BLOOD COUNT 4.01 10^6/uL (4.00-5.40); WHITE BLOOD COUNT 6.7 10^3/uL (4.0-10.0)
[2023-07-23 08:52] LABS: ERYTHROCYTE SEDIMENTATION RATE 19 mm/hr (0-20)
[2023-07-23 09:05] LABS: ALBUMIN 3.6 G/DL (3.2-5.2); ALKALINE PHOSPHATASE 83 U/L (46-116); ALT/SGPT 21 U/L (7.0-40); AST/SGOT 24 U/L (<34); BILIRUBIN,TOTAL 0.3 MG/DL (0.3-1.2); BLOOD UREA NITROGEN 15 MG/DL (9-23); CALCIUM LEVEL 9.2 MG/DL (8.5-10.1); CARBON DIOXIDE LEVEL 28 MMOL/L (20-31); CHLORIDE LEVEL 103 MMOL/L (98-107); CREATININE FOR GFR 0.73 MG/DL (0.55-1.30); GLOMERULAR FILTRATION RATE > 60.0 (>60); GLUCOSE, FASTING 117 MG/DL (60-100); POTASSIUM SERUM 3.8 MMOL/L (3.5-5.1); SODIUM LEVEL 138 MMOL/L (136-145); TOTAL PROTEIN 6.5 G/DL (5.7-8.2)
[2023-07-23 09:31] VITALS: BP 117/72; TEMP 98; O2SAT 99
[2023-07-23 09:38] LABS: HIV 1&2 SCREEN NEGATIVE (NEGATIVE)
[2023-07-23] MEDS ORDERED: KEPP10002 PO (09:51)
== END 2023-07-23 10:03 | disposition home or self-care (01) ==
LOC: M ED 07:29
DX: G40.909 Epilepsy, unspecified, not intractable, without status epilepticus (principal); F19.10 Other psychoactive substance abuse, uncomplicated; F17.210 Nicotine dependence, cigarettes, uncomplicated; Z88.0 Allergy status to penicillin; Z88.2 Allergy status to sulfonamides; Z88.8 Allergy status to other drugs, medicaments and biological substances; Z79.899 Other long term (current) drug therapy

== ENCOUNTER 2023-07-28 07:37 | Emergency (ER) | payer SELFPAY ==
[~2023-07-28] VITALS: Ht 152.4 cm; Wt 76.8 kg
[~2023-07-28 07:37] MED LIST changes: +NITR100C3 PO; -NITR1CAP11 PO
[2023-07-28 08:50] LABS: HEMATOCRIT 39.4 % (36.0-47.0); HEMOGLOBIN 12.8 g/dl (12.0-15.5); MEAN CORPUSCULAR HEMOGLOBIN 28.6 pg (27.0-33.0); MEAN CORPUSCULAR HGB CONC 32.5 g/dl (32.0-36.5); MEAN CORPUSCULAR VOLUME 87.9 fl (80.0-96.0); PLATELET COUNT, AUTOMATED 289 10^3/uL (150-450); RED BLOOD COUNT 4.48 10^6/uL (4.00-5.40); WHITE BLOOD COUNT 8.7 10^3/uL (4.0-10.0)
[2023-07-28 09:01] LABS: ETHYL ALCOHOL (ETHANOL) < 0.003 % (0.000-0.010)
[2023-07-28 09:02] LABS: SALICYLATE LEVEL < 3.0 MG/DL (<30)
[2023-07-28 09:03] LABS: ALBUMIN 4.3 G/DL (3.2-5.2); ALKALINE PHOSPHATASE 84 U/L (46-116); ALT/SGPT 21 U/L (7.0-40); AST/SGOT 25 U/L (<34); BILIRUBIN,DIRECT 0.2 MG/DL (<0.4); BILIRUBIN,TOTAL 0.7 MG/DL (0.3-1.2); BLOOD UREA NITROGEN 20 MG/DL (9-23); CALCIUM LEVEL 9.6 MG/DL (8.5-10.1); CARBON DIOXIDE LEVEL 24 MMOL/L (20-31); CHLORIDE LEVEL 108 MMOL/L (98-107); CREATININE FOR GFR 0.73 MG/DL (0.55-1.30); GLOMERULAR FILTRATION RATE > 60.0 (>60); GLUCOSE, FASTING 77 MG/DL (60-100); POTASSIUM SERUM 3.7 MMOL/L (3.5-5.1); SODIUM LEVEL 142 MMOL/L (136-145); TOTAL PROTEIN 7.3 G/DL (5.7-8.2)
[2023-07-28 09:05] LABS: THYROID STIMULATING HORMONE 1.118 uIU/ML (0.55-4.78)
[2023-07-28] MEDS ORDERED: HOME MED LIST COMPLETE! XX SCH (09:10)
[2023-07-28 09:40] VITALS: BP 136/68; TEMP 97.6; O2SAT 100
== END 2023-07-28 09:44 | disposition home or self-care (01) ==
LOC: M ED 07:37
DX: F19.10 Other psychoactive substance abuse, uncomplicated (principal); B19.20 Unspecified viral hepatitis C without hepatic coma; Z88.0 Allergy status to penicillin; Z88.1 Allergy status to other antibiotic agents; Z88.2 Allergy status to sulfonamides; Z88.8 Allergy status to other drugs, medicaments and biological substances; Z79.899 Other long term (current) drug therapy

== ENCOUNTER 2023-08-16 18:25 | Emergency (ER) | payer SELFPAY ==
[~2023-08-16] VITALS: Ht 152.4 cm; Wt 73.8 kg
[2023-08-16 21:27] VITALS: BP 120/65; TEMP 97.6; O2SAT 98
== END 2023-08-16 21:28 | disposition home or self-care (01) ==
LOC: M ED 18:25
DX: J06.9 Acute upper respiratory infection, unspecified (principal); B34.9 Viral infection, unspecified; F17.210 Nicotine dependence, cigarettes, uncomplicated; F19.10 Other psychoactive substance abuse, uncomplicated; Z88.0 Allergy status to penicillin; Z88.2 Allergy status to sulfonamides; Z88.8 Allergy status to other drugs, medicaments and biological substances

== ENCOUNTER 2023-09-22 22:58 | Emergency (ER) | payer SELFPAY ==
[~2023-09-22] VITALS: Ht 152.4 cm; Wt 68.4 kg
[~2023-09-22 22:58] MED LIST changes: -OLAN20TA14 PO; +OLAN20TA53 PO
[2023-09-23 01:05] VITALS: BP 121/87; TEMP 98.1; O2SAT 99
[2023-09-23 01:36] LABS: BASO % 0.2 % (0.0-1.0); EOS # 0.1 10^3/uL (0.0-0.5); EOS % 2.2 % (0.0-3.0); HEMATOCRIT 39.2 % (36.0-47.0); HEMOGLOBIN 12.9 g/dl (12.0-15.5); LYMPH # 3.6 10^3/uL (1.5-5.0); LYMPH % 60.8 % (24.0-44.0); MEAN CORPUSCULAR HEMOGLOBIN 28.9 pg (27.0-33.0); MEAN CORPUSCULAR HGB CONC 32.9 g/dl (32.0-36.5); MEAN CORPUSCULAR VOLUME 87.7 fl (80.0-96.0); MONO # 0.5 10^3/uL (0.0-0.8); MONO % 8.2 % (2.0-8.0); NEUTROPHILS # 1.7 10^3/uL (1.5-8.5); NEUTROPHILS % 28.4 % (36.0-66.0); PLATELET COUNT, AUTOMATED 248 10^3/uL (150-450); RED BLOOD COUNT 4.47 10^6/uL (4.00-5.40); WHITE BLOOD COUNT 5.8 10^3/uL (4.0-10.0)
[2023-09-23 01:50] LABS: HCG, SERUM QUALITATIVE NEGATIVE (NEGATIVE)
[2023-09-23 01:57] LABS: BLOOD UREA NITROGEN 10 MG/DL (9-23); CALCIUM LEVEL 9.2 MG/DL (8.5-10.1); CARBON DIOXIDE LEVEL 24 MMOL/L (20-31); CHLORIDE LEVEL 105 MMOL/L (98-107); CREATININE FOR GFR 0.53 MG/DL (0.55-1.30); GLOMERULAR FILTRATION RATE > 60.0 (>60); GLUCOSE, FASTING 74 MG/DL (60-100); POTASSIUM SERUM 4.2 MMOL/L (3.5-5.1); SODIUM LEVEL 137 MMOL/L (136-145)
[2023-09-23 02:57] LABS: Trichomonas vaginalis (AMP) NOT DETECTED (NEGATIVE)
[2023-09-23 03:21] LABS: GC DNA AMPLIFICATION NEGATIVE (NEGATIVE)
== END 2023-09-23 02:14 | disposition home or self-care (01) ==
LOC: M ED 22:58
DX: N94.6 Dysmenorrhea, unspecified (principal); N93.9 Abnormal uterine and vaginal bleeding, unspecified; F11.10 Opioid abuse, uncomplicated; Z88.0 Allergy status to penicillin; Z88.2 Allergy status to sulfonamides; Z88.8 Allergy status to other drugs, medicaments and biological substances

== ENCOUNTER 2023-09-28 18:48 | Emergency (ER) | payer SELFPAY ==
[~2023-09-28] VITALS: Ht 152.4 cm; Wt 65.0 kg
[2023-09-28 18:51] VITALS: TEMP 97.8
[2023-09-28 22:48] LABS: BARBITURATES URINE NEGATIVE (NEGATIVE); BENZODIAZEPINES URINE NEGATIVE (NEGATIVE); METHADONE URINE NEGATIVE (NEGATIVE)
[2023-09-28 22:49] LABS: PHENCYCLIDINE URINE NEGATIVE (NEGATIVE)
[2023-09-28 22:52] LABS: AMPHETAMINES LEVEL URINE POSITIVE (NEGATIVE); CANNABINOIDS URINE POSITIVE (NEGATIVE); COCAINE METABOLITE URINE POSITIVE (NEGATIVE); OPIATES URINE POSITIVE (NEGATIVE)
[2023-09-29 02:43] LABS: BASO % 0.7 % (0.0-1.0); EOS # 0.4 10^3/uL (0.0-0.5); HEMATOCRIT 38.8 % (36.0-47.0); HEMOGLOBIN 12.9 g/dl (12.0-15.5); LYMPH # 3.3 10^3/uL (1.5-5.0); LYMPH % 56.8 % (24.0-44.0); MEAN CORPUSCULAR HEMOGLOBIN 29.1 pg (27.0-33.0); MEAN CORPUSCULAR HGB CONC 33.2 g/dl (32.0-36.5); MEAN CORPUSCULAR VOLUME 87.4 fl (80.0-96.0); MONO # 0.5 10^3/uL (0.0-0.8); MONO % 8.2 % (2.0-8.0); NEUTROPHILS # 1.6 10^3/uL (1.5-8.5); NEUTROPHILS % 28.1 % (36.0-66.0); RED BLOOD COUNT 4.44 10^6/uL (4.00-5.40); WHITE BLOOD COUNT 5.8 10^3/uL (4.0-10.0)
[2023-09-29 03:03] LABS: LIPASE 22 U/L (12-53)
[2023-09-29 03:05] LABS: ALKALINE PHOSPHATASE 95 U/L (46-116); ALT/SGPT 45 U/L (7.0-40); AST/SGOT 87 U/L (<34); BILIRUBIN,DIRECT 0.3 MG/DL (<0.4); BILIRUBIN,TOTAL 0.6 MG/DL (0.3-1.2); BLOOD UREA NITROGEN 14 MG/DL (9-23); CALCIUM LEVEL 9.3 MG/DL (8.5-10.1); CARBON DIOXIDE LEVEL 29 MMOL/L (20-31); CHLORIDE LEVEL 101 MMOL/L (98-107); CREATININE FOR GFR 0.67 MG/DL (0.55-1.30); GLOMERULAR FILTRATION RATE > 60.0 (>60); GLUCOSE, FASTING 88 MG/DL (60-100); POTASSIUM SERUM 3.4 MMOL/L (3.5-5.1); SODIUM LEVEL 135 MMOL/L (136-145); TOTAL PROTEIN 6.8 G/DL (5.7-8.2)
[2023-09-29 03:15] LABS: HCG, SERUM QUALITATIVE NEGATIVE (NEGATIVE)
[2023-09-29] MEDS ORDERED: NS 1,000 ML IV ONE (03:55)
[2023-09-29] MEDS ORDERED: KETOROLAC 30 MG/ML 1ML VIAL IV ONE (03:55)
[2023-09-29] MEDS ORDERED: ONDANSETRON 4MG 2ML VIAL IV ONE (03:55)
[2023-09-29] MEDS: ONDANSETRON 4MG ORAL DISINTEGRATING TAB PO ONE (04:40)
[2023-09-29] MEDS: KETOROLAC 30 MG/ML 1ML VIAL IM ONE (04:40)
[2023-09-29 05:30] VITALS: BP 102/55
[2023-09-29 06:03] VITALS: O2SAT 98
[2023-09-29] MEDS ORDERED: ONDA-282 PO (06:13)
== END 2023-09-29 06:44 | disposition home or self-care (01) ==
LOC: M ED 18:48
DX: R10.9 Unspecified abdominal pain (principal); R11.0 Nausea; F19.10 Other psychoactive substance abuse, uncomplicated; F17.210 Nicotine dependence, cigarettes, uncomplicated; F10.10 Alcohol abuse, uncomplicated; Z88.0 Allergy status to penicillin; Z88.2 Allergy status to sulfonamides; Z88.8 Allergy status to other drugs, medicaments and biological substances; Z79.899 Other long term (current) drug therapy
CPT/HCPCS: 71045; 80048; 80076; 80307; 81001; 83690; 84703; 85025; 87486; 87581; 87633; 87798; 96372; 99284; J1885

== ENCOUNTER 2023-09-30 13:11 | Emergency (ER) | payer SELFPAY ==
[~2023-09-30] VITALS: Ht 152.4 cm; Wt 65.2 kg
[~2023-09-30 13:11] MED LIST changes: +ONDA-282 PO
[2023-09-30 16:03] LABS: Trichomonas vaginalis (AMP) NOT DETECTED (NEGATIVE)
[2023-09-30 16:07] LABS: HEPATITIS B SURFACE ANTIGEN NEGATIVE (NEGATIVE)
[2023-09-30 16:27] LABS: GC DNA AMPLIFICATION NEGATIVE (NEGATIVE)
[2023-09-30 16:28] LABS: HEPATITIS C VIRUS ABY INDEX > 11.00 INDEX (<0.8)
[2023-09-30 16:32] LABS: HEPATITIS B SURFACE ANTIBODY POSITIVE (POSITIVE)
[2023-09-30 17:24] LABS: HCG, SERUM QUALITATIVE NEGATIVE (NEGATIVE)
[2023-09-30 17:40] VITALS: BP 103/63; TEMP 97.5; O2SAT 100
[2023-10-03 12:23] LABS: HIV INTERPRETATION NON-REACTIVE (NON-REACTIVE)
[2023-10-03 13:02] LABS: HCV RNA log10 3.08 Log IU/mL (NOT DETECTED)
== END 2023-09-30 17:42 | disposition left against medical advice (07) ==
LOC: M ED 13:11
DX: Z11.3 Encounter for screening for infections with a predominantly sexual mode of transmission (principal); B19.20 Unspecified viral hepatitis C without hepatic coma; G40.909 Epilepsy, unspecified, not intractable, without status epilepticus; F19.10 Other psychoactive substance abuse, uncomplicated; Z88.0 Allergy status to penicillin; Z88.2 Allergy status to sulfonamides; Z88.8 Allergy status to other drugs, medicaments and biological substances; Z79.899 Other long term (current) drug therapy; Z53.9 Procedure and treatment not carried out, unspecified reason

== ENCOUNTER 2023-10-02 00:48 | Emergency (ER) | payer SELFPAY ==
[~2023-10-02] VITALS: Ht 152.4 cm; Wt 67.2 kg
[2023-10-02] MEDS: MORPHINE 10 MG/ML 1ML VIAL IM ONE (03:40)
[2023-10-02 04:01] LABS: BASO % 0.5 % (0.0-1.0); EOS # 0.2 10^3/uL (0.0-0.5); EOS % 2.6 % (0.0-3.0); HEMATOCRIT 35.1 % (36.0-47.0); HEMOGLOBIN 11.4 g/dl (12.0-15.5); LYMPH % 34.5 % (24.0-44.0); MEAN CORPUSCULAR HEMOGLOBIN 28.7 pg (27.0-33.0); MEAN CORPUSCULAR HGB CONC 32.5 g/dl (32.0-36.5); MEAN CORPUSCULAR VOLUME 88.4 fl (80.0-96.0); MONO # 0.5 10^3/uL (0.0-0.8); MONO % 8.1 % (2.0-8.0); NEUTROPHILS # 3.1 10^3/uL (1.5-8.5); NEUTROPHILS % 54.1 % (36.0-66.0); PLATELET COUNT, AUTOMATED 247 10^3/uL (150-450); RED BLOOD COUNT 3.97 10^6/uL (4.00-5.40); WHITE BLOOD COUNT 5.7 10^3/uL (4.0-10.0)
[2023-10-02 04:26] LABS: BLOOD UREA NITROGEN 16 MG/DL (9-23); CALCIUM LEVEL 8.6 MG/DL (8.5-10.1); CARBON DIOXIDE LEVEL 31 MMOL/L (20-31); CHLORIDE LEVEL 105 MMOL/L (98-107); CREATININE FOR GFR 0.82 MG/DL (0.55-1.30); GLOMERULAR FILTRATION RATE > 60.0 (>60); GLUCOSE, FASTING 105 MG/DL (60-100); POTASSIUM SERUM 3.6 MMOL/L (3.5-5.1); SODIUM LEVEL 138 MMOL/L (136-145)
[2023-10-02 05:19] VITALS: BP 124/88; TEMP 98.8; O2SAT 98
== END 2023-10-02 05:26 | disposition home or self-care (01) ==
LOC: M ED 00:48
DX: S16.1XXA Strain of muscle, fascia and tendon at neck level, initial encounter (principal); Y92.9 Unspecified place or not applicable; Y93.9 Activity, unspecified; Y99.9 Unspecified external cause status; F19.10 Other psychoactive substance abuse, uncomplicated; Z88.0 Allergy status to penicillin; Z88.2 Allergy status to sulfonamides; Z88.8 Allergy status to other drugs, medicaments and biological substances; Z79.899 Other long term (current) drug therapy

== ENCOUNTER 2023-10-02 15:17 | Emergency (ER) | payer SELFPAY ==
[~2023-10-02] VITALS: Ht 152.4 cm; Wt 67.3 kg
[2023-10-02 15:18] VITALS: BP 115/55; TEMP 97; O2SAT 99
== END 2023-10-02 17:10 | disposition left against medical advice (07) ==
LOC: M ED 15:17
DX: Z53.21 Procedure and treatment not carried out due to patient leaving prior to being seen by health care provider (principal)

== ENCOUNTER 2023-10-05 11:28 | Emergency (ER) | payer SELFPAY ==
[~2023-10-05] VITALS: Ht 152.4 cm; Wt 67.8 kg
[2023-10-05 11:32] VITALS: BP 112/67; TEMP 97.6; O2SAT 100
== END 2023-10-05 13:30 | disposition left against medical advice (07) ==
LOC: M ED 11:28
DX: Z53.21 Procedure and treatment not carried out due to patient leaving prior to being seen by health care provider (principal)

== ENCOUNTER 2023-10-13 03:51 | Emergency (ER) | payer SELFPAY ==
[~2023-10-13] VITALS: Ht 152.4 cm; Wt 64.7 kg
[2023-10-13 03:52] VITALS: BP 110/59; TEMP 98.2; O2SAT 99
[2023-10-13] MEDS: KETOROLAC 60MG 2ML VIAL IM ONE (04:40)
[2023-10-13] MEDS ORDERED: SUMA100T2 PO (11:29)
[2023-10-13] MEDS ORDERED: CLEO300C2 PO (13:03)
== END 2023-10-13 05:02 | disposition home or self-care (01) ==
LOC: M ED 03:51
DX: B19.20 Unspecified viral hepatitis C without hepatic coma (principal); F19.10 Other psychoactive substance abuse, uncomplicated; F17.210 Nicotine dependence, cigarettes, uncomplicated; F15.10 Other stimulant abuse, uncomplicated; F10.10 Alcohol abuse, uncomplicated; Z88.0 Allergy status to penicillin; Z88.2 Allergy status to sulfonamides; Z88.8 Allergy status to other drugs, medicaments and biological substances; Z79.2 Long term (current) use of antibiotics; Z79.899 Other long term (current) drug therapy
CPT/HCPCS: 96372; 99282; J1885

== ENCOUNTER 2023-10-13 09:22 | Emergency (ER) | payer SELFPAY ==
[~2023-10-13] VITALS: Ht 152.4 cm; Wt 67.5 kg
[2023-10-13] MEDS ORDERED: SUMA100T2 PO (11:29)
[2023-10-13 11:46] VITALS: BP 105/53; TEMP 96.8; O2SAT 98
[2023-10-13] MEDS ORDERED: CLEO300C2 PO (13:03)
[2023-10-13] MEDS: CLINDAMYCIN 150MG CAPSULE PO ONE (13:03)
== END 2023-10-13 13:18 | disposition home or self-care (01) ==
LOC: M ED 09:22
DX: L03.811 Cellulitis of head [any part, except face] (principal); K08.89 Other specified disorders of teeth and supporting structures; B18.2 Chronic viral hepatitis C; F17.210 Nicotine dependence, cigarettes, uncomplicated; F19.10 Other psychoactive substance abuse, uncomplicated; F10.10 Alcohol abuse, uncomplicated; Z88.0 Allergy status to penicillin; Z88.2 Allergy status to sulfonamides; Z88.8 Allergy status to other drugs, medicaments and biological substances; Z79.2 Long term (current) use of antibiotics; Z79.899 Other long term (current) drug therapy

== ENCOUNTER 2023-11-20 16:03 | Emergency (ER) | payer MEDICAID, SELFPAY ==
[~2023-11-20] VITALS: Ht 157.5 cm; Wt 62.8 kg
[~2023-11-20 16:03] MED LIST changes: +GABA-1490 PO; +GABA-1635 PO; -GABA600T4 PO; -GABA800T4 PO; +SUMA100T2 PO
[2023-11-21 06:13] VITALS: BP 128/70; TEMP 96.2; O2SAT 100
== END 2023-11-21 06:22 | disposition home or self-care (01) ==
LOC: M ED 16:03
DX: S00.83XA Contusion of other part of head, initial encounter (principal); Y92.410 Unspecified street and highway as the place of occurrence of the external cause; Y93.9 Activity, unspecified; Y99.9 Unspecified external cause status; F15.10 Other stimulant abuse, uncomplicated; F11.10 Opioid abuse, uncomplicated; Z88.0 Allergy status to penicillin; Z88.2 Allergy status to sulfonamides; Z88.8 Allergy status to other drugs, medicaments and biological substances

== ENCOUNTER 2023-12-12 18:18 | Emergency (ER) | payer MEDICAID ==
[~2023-12-12] VITALS: Ht 152.4 cm; Wt 63.0 kg
[~2023-12-12 18:18] MED LIST changes: -DOXY-323 PO; +DOXY-441 PO; +GABA-1172 PO; -GABA-282 PO; -SENN-111 PO; +SENN-165 PO
[2023-12-13] MEDS ORDERED: BENZ200C70 PO (04:11)
[2023-12-13] MEDS: BENZONATATE 100MG CAPSULE PO ONE (04:23)
[2023-12-13] MEDS: predniSONE 20 MG TAB PO ONE (04:23)
[2023-12-13 04:42] VITALS: BP 117/71; TEMP 97.3; O2SAT 100
== END 2023-12-13 04:49 | disposition home or self-care (01) ==
LOC: M ED 18:18
DX: J06.9 Acute upper respiratory infection, unspecified (principal); F17.210 Nicotine dependence, cigarettes, uncomplicated; Z88.2 Allergy status to sulfonamides; Z88.8 Allergy status to other drugs, medicaments and biological substances; Z79.899 Other long term (current) drug therapy
CPT/HCPCS: 36415; 87486; 87581; 87633; 87798; 87880; 99283; J7512

== ENCOUNTER 2023-12-26 06:38 | Emergency (ER) | payer SELFPAY ==
[~2023-12-26] VITALS: Ht 157.5 cm; Wt 60.9 kg
[~2023-12-26 06:38] MED LIST changes: +BENZ200C70 PO
[2023-12-26 08:40] VITALS: BP 110/65; TEMP 97.9; O2SAT 94
[2023-12-26] MEDS: AZITHROMYCIN 250MG TABLET PO ONE (08:49)
[2023-12-26] MEDS ORDERED: AZIT500T5 PO (08:50)
== END 2023-12-26 08:57 | disposition home or self-care (01) ==
LOC: M ED 06:38
DX: J18.1 Lobar pneumonia, unspecified organism (principal); F19.129 Other psychoactive substance abuse with intoxication, unspecified; G40.909 Epilepsy, unspecified, not intractable, without status epilepticus; F17.200 Nicotine dependence, unspecified, uncomplicated; Z88.2 Allergy status to sulfonamides; Z88.8 Allergy status to other drugs, medicaments and biological substances; Z79.1 Long term (current) use of non-steroidal anti-inflammatories (NSAID); Z79.899 Other long term (current) drug therapy

== ENCOUNTER 2023-12-30 02:37 | Emergency (ER) | payer SELFPAY ==
[~2023-12-30] VITALS: Ht 152.4 cm; Wt 62.0 kg
[~2023-12-30 02:37] MED LIST changes: +AZIT500T5 PO
[2023-12-30 02:40] VITALS: TEMP 96.3
[2023-12-30] MEDS: predniSONE 20 MG TAB PO ONE (05:45)
[2023-12-30] MEDS: IPRATROPIUM 0.5MG/ALBUTEROL 2.5MG INH SOL UD 3ML (DUONEB) NEB ONE (05:45)
[2023-12-30] MEDS: DOXYCYCLINE HYCLATE 100MG TABLET PO ONE (05:46)
[2023-12-30] MEDS: levETIRAcetam 250MG TABLET (KEPPRA) PO ONE (05:47)
[2023-12-30 05:52] VITALS: BP 120/67; O2SAT 100
[2023-12-30] MEDS ORDERED: KEPP10002 PO (06:17)
[2023-12-30] MEDS ORDERED: PRED20TA PO (06:17)
[2023-12-30] MEDS ORDERED: DOXY-441 PO (06:17)
[2023-12-30] MEDS ORDERED: NEUR300C PO (06:17)
== END 2023-12-30 06:33 | disposition home or self-care (01) ==
LOC: M ED 02:37
DX: J20.9 Acute bronchitis, unspecified (principal); Z88.2 Allergy status to sulfonamides; Z88.8 Allergy status to other drugs, medicaments and biological substances; Z79.2 Long term (current) use of antibiotics; Z79.52 Long term (current) use of systemic steroids; Z79.899 Other long term (current) drug therapy
CPT/HCPCS: 99284; J7512

== ENCOUNTER 2024-02-09 20:15 | Emergency (ER) | payer SELFPAY ==
[~2024-02-09] VITALS: Ht 152.4 cm; Wt 61.1 kg
[~2024-02-09 20:15] MED LIST changes: +NEUR300C PO
[2024-02-10] MEDS ORDERED: CLIN150C17 PO
[2024-02-10] MEDS: CLINDAMYCIN 150MG CAPSULE PO ONE (00:03)
[2024-02-10 00:10] VITALS: BP 102/49; TEMP 97; O2SAT 100
== END 2024-02-10 00:38 | disposition home or self-care (01) ==
LOC: M ED 02-10 00:17
DX: K04.7 Periapical abscess without sinus (principal); L03.116 Cellulitis of left lower limb; E03.9 Hypothyroidism, unspecified; F17.210 Nicotine dependence, cigarettes, uncomplicated; F15.10 Other stimulant abuse, uncomplicated; Z88.2 Allergy status to sulfonamides; Z88.8 Allergy status to other drugs, medicaments and biological substances; Z79.2 Long term (current) use of antibiotics; Z79.899 Other long term (current) drug therapy; Z79.52 Long term (current) use of systemic steroids

== ENCOUNTER 2024-03-01 16:06 | Emergency (ER) | payer SELFPAY ==
[~2024-03-01] VITALS: Ht 152.4 cm; Wt 61.3 kg
[~2024-03-01 16:06] MED LIST changes: +CLIN150C17 PO
[2024-03-01 16:09] VITALS: BP 163/74; TEMP 97.2; O2SAT 98
== END 2024-03-01 17:29 | disposition left against medical advice (07) ==
LOC: M ED 16:06
DX: Z53.21 Procedure and treatment not carried out due to patient leaving prior to being seen by health care provider (principal)

== ENCOUNTER → 2024-04-08 | Outpatient (CLI) | payer OTHER | LOC: M RAD 10:17 | PROVIDERS: ATTEND Internal Medicine Addiction Medicine | DX: K80.44 Calculus of bile duct with chronic cholecystitis without obstruction (principal) ==

== ENCOUNTER 2024-04-27 08:14 | Emergency (ER) | payer OTHER, SELFPAY ==
[~2024-04-27] VITALS: Ht 152.4 cm; Wt 65.0 kg
[~2024-04-27 08:14] MED LIST changes: +VANC125C13 PO; -VANC125C3 PO
[2024-04-27] MEDS ORDERED: IBUP-1022 PO (11:18)
[2024-04-27] MEDS ORDERED: AMOX875T2 PO (11:18)
[2024-04-27 11:40] VITALS: BP 100/55; TEMP 97.2; O2SAT 98
== END 2024-04-27 11:40 | disposition home or self-care (01) ==
LOC: M ED 08:14
DX: K02.9 Dental caries, unspecified (principal); Z87.891 Personal history of nicotine dependence; Z88.2 Allergy status to sulfonamides; Z88.8 Allergy status to other drugs, medicaments and biological substances; Z79.1 Long term (current) use of non-steroidal anti-inflammatories (NSAID); Z79.2 Long term (current) use of antibiotics

== ENCOUNTER 2024-04-27 20:25 | Emergency (ER) | payer SELFPAY ==
[~2024-04-27] VITALS: Ht 152.4 cm; Wt 65.7 kg
[~2024-04-27 20:25] MED LIST changes: +AMOX875T2 PO
[2024-04-27 20:27] VITALS: BP 136/92; TEMP 97.1; O2SAT 100
[2024-04-27] MEDS: AUGMENTIN 875 MG TAB PO ONE (21:04)
[2024-04-27] MEDS: IBUPROFEN 600MG TAB PO ONE (21:05)
== END 2024-04-27 21:31 | disposition home or self-care (01) ==
LOC: M ED 20:25
DX: K08.89 Other specified disorders of teeth and supporting structures (principal); F17.200 Nicotine dependence, unspecified, uncomplicated; E03.9 Hypothyroidism, unspecified; Z88.2 Allergy status to sulfonamides; Z88.1 Allergy status to other antibiotic agents; Z88.8 Allergy status to other drugs, medicaments and biological substances

== ENCOUNTER 2024-05-01 01:28 | Emergency (ER) | payer SELFPAY ==
[~2024-05-01] VITALS: Ht 154.9 cm; Wt 65.2 kg
[2024-05-01 01:31] VITALS: BP 118/53; TEMP 98.2; O2SAT 100
== END 2024-05-01 04:43 | disposition left against medical advice (07) ==
LOC: M ED 04:33
DX: Z53.21 Procedure and treatment not carried out due to patient leaving prior to being seen by health care provider (principal)

== ENCOUNTER 2024-06-06 18:33 | Emergency (ER) | payer SELFPAY ==
[~2024-06-06] VITALS: Ht 162.6 cm; Wt 57.0 kg
[2024-06-06] MEDS: AUGMENTIN 875 MG TAB PO ONE (19:49)
[2024-06-06] MEDS ORDERED: AMOX875T2 PO (20:18)
[2024-06-06 20:23] VITALS: BP 109/51; TEMP 97.5; O2SAT 98
== END 2024-06-06 20:32 | disposition home or self-care (01) ==
LOC: M ED 18:33
DX: K04.7 Periapical abscess without sinus (principal); F19.10 Other psychoactive substance abuse, uncomplicated; Z88.2 Allergy status to sulfonamides; Z88.8 Allergy status to other drugs, medicaments and biological substances; Z79.1 Long term (current) use of non-steroidal anti-inflammatories (NSAID); Z79.2 Long term (current) use of antibiotics

== ENCOUNTER → 2025-01-02 | Outpatient (CLI) | payer MEDICAID, OTHER ==
[~2025-01-02] MED LIST changes: -DIPH50CA PO; +DIPH50CA31 PO; -IBUP-1022 PO; -IBUP1TAB6 PO; +IBUP600T42 PO; +SFHIBU600 PO; +TOPA50TA8 PO
[2025-01-02 16:08] LABS: BASO # 0.0 10^3/uL (0.0-0.2); BASO % 0.4 % (0.0-1.0); EOS # 0.1 10^3/uL (0.0-0.5); EOS % 1.6 % (0.0-3.0); LYMPH # 2.8 10^3/uL (1.5-5.0); LYMPH % 53.9 % (24.0-44.0); MONO # 0.4 10^3/uL (0.0-0.8); MONO % 8.4 % (2.0-8.0); NEUTROPHILS # 1.8 10^3/uL (1.5-8.5); NEUTROPHILS % 35.7 % (36.0-66.0); PLATELET COUNT, AUTOMATED 253 10^3/uL (150-450)
[2025-01-02 16:38] LABS: ALT/SGPT 25 U/L (7.0-40); AST/SGOT 37 U/L (<34); CALCIUM LEVEL 8.9 MG/DL (8.5-10.1); CARBON DIOXIDE LEVEL 31 MMOL/L (20-31); CHLORIDE LEVEL 105 MMOL/L (98-107); CREATININE FOR GFR 0.77 MG/DL (0.55-1.30); GLOMERULAR FILTRATION RATE > 90.0 (>60); POTASSIUM SERUM 3.7 MMOL/L (3.5-5.1); SODIUM LEVEL 141 MMOL/L (136-145)
[2025-01-02 16:47] LABS: HCG, SERUM QUALITATIVE NEGATIVE (NEGATIVE)
[2025-01-02 20:01] LABS: HEPATITIS C VIRUS ABY INDEX > 11.00 INDEX (<0.8)
[2025-01-02 20:02] LABS: HIV 1&2 SCREEN REACTIVE (NEGATIVE)
[2025-01-06 08:08] LABS: HEPATITIS BE ANTIGEN Nonreactive (NON REACTIV)
[2025-01-06 19:07] LABS: HCV RNA QUANTITATION <15 NOT DETECTED IU/mL (NOT DETECTED); HCV RNA log10 <1.18 NOT DETECTED Log IU/mL (NOT DETECTED)
[2025-01-07 23:17] LABS: HIV 1 AB NEGATIVE (NEGATIVE); HIV 1 RNA NOT DETECTED (NOT DETECTED); HIV 2 AB NEGATIVE (NEGATIVE); HIV 2 RNA NOT DETECTED (NOT DETECTED); HIV INTERPRETATION HIV NEGATIVE (NON REACT)
== END ==
LOC: M LAB 14:56
PROVIDERS: ATTEND Emergency Medicine
DX: B18.2 Chronic viral hepatitis C (principal)

== ENCOUNTER 2025-01-09 07:29 | Emergency (ER) | payer OTHER ==
[~2025-01-09] VITALS: Ht 152.4 cm; Wt 65.6 kg
[~2025-01-09 07:29] MED LIST changes: -TOPA50TA8 PO
[2025-01-09 07:31] VITALS: BP 130/70; TEMP 98; O2SAT 99
[2025-01-09] MEDS ORDERED: TOPA50TA8 PO (07:38)
== END 2025-01-09 08:55 | disposition left against medical advice (07) ==
LOC: M ED 07:29
DX: Z53.21 Procedure and treatment not carried out due to patient leaving prior to being seen by health care provider (principal)